=== PATIENT | male | born 1990 | race Caucasian/White ===

== ENCOUNTER 2017-12-16 10:41 | Day surgery (SDC) | payer OTHER ==
[2017-12-16] MEDS: NS 1,000 ML IV (11:00)
[2017-12-16] MEDS ORDERED: LIDOCAINE 2% INJ 100 MG/5 ML SDV (FOR ANES.) As Ordered (12:41)
[2017-12-16] MEDS ORDERED: PROPOFOL 200 MG/20 ML VIAL As Ordered ×2 (12:41)
== END 2017-12-16 13:31 | disposition home or self-care (01) ==
LOC: M OPP 10:41
DX: R11.2 Nausea with vomiting, unspecified (principal); K31.89 Other diseases of stomach and duodenum; I10 Essential (primary) hypertension; K58.9 Irritable bowel syndrome, unspecified; R19.7 Diarrhea, unspecified; K59.00 Constipation, unspecified; E66.9 Obesity, unspecified; K21.9 Gastro-esophageal reflux disease without esophagitis; R06.02 Shortness of breath; M19.90 Unspecified osteoarthritis, unspecified site; M54.9 Dorsalgia, unspecified; F41.9 Anxiety disorder, unspecified; G43.909 Migraine, unspecified, not intractable, without status migrainosus; G40.909 Epilepsy, unspecified, not intractable, without status epilepticus; J45.909 Unspecified asthma, uncomplicated; G47.30 Sleep apnea, unspecified; R06.83 Snoring; Z88.8 Allergy status to other drugs, medicaments and biological substances; Z88.5 Allergy status to narcotic agent; Z79.899 Other long term (current) drug therapy
CPT/HCPCS: 43239

== ENCOUNTER 2018-11-20 12:37 | Day surgery (SDC) | payer OTHER ==
[~2018-11-20] VITALS: Ht 180.3 cm; Wt 171.5 kg
[~2018-11-20 12:37] MED LIST: ACET-897 PO; ADV250INH INH; ALBU17IN INH; ALBU17IN2 INH; AMLO10TA2 PO; BREO1INH INH; CARA1TAB2 PO; CETI10TA PO; DESV100T PO; DOXY1CAP60 PO; DRIS50003 PO; GABA-1171 PO; HYDR50TA2 PO; IBUP-1022 PO; INCR1INH IN; LISI5TAB PO; LORA10TA2 PO; MAPA500C PO; NS 1,000 ML IV ONE; OMEP40CA2 PO; PRIL40CA PO; PRIS50TA PO; SING10TA32 PO; SING5CHW PO; THEO30TASA PO; TOPA100T PO; TOPI200T7 PO; TRAZ50TA2 PO; ULTR50TA PO; VITA100L PO; VITA500T3 PO; ZOFR4SOL SL
[2018-11-20] MEDS ORDERED: fentaNYL 100 MCG/2 ML INJECTION (J3010) As Ordered ONE (14:14)
[2018-11-20] MEDS ORDERED: LIDOCAINE 2% INJ 100 MG/5 ML SDV (FOR ANES.) As Ordered ONE (14:14)
[2018-11-20] MEDS ORDERED: PROPOFOL 200 MG/20 ML VIAL As Ordered ONE (14:14)
--- NOTE | 2018-11-20 14:22 | ROOR ---
Patient Name: Davie Trujillo Procedure Date: 11/20/2018 2:06 PM Date of : 1990 Age: 28 Room: [facility] Gender: Male Note Status: Finalized Procedure: Upper GI endoscopy Indications: Generalized abdominal pain, Heartburn Providers: Cesar REYNOLDS MD Referring MD: Matti Centeno MD Requesting Provider: Medicines: Monitored Anesthesia Care Complications: No immediate complications. Procedure: Pre-Anesthesia Assessment: - The heart rate, respiratory rate, oxygen saturations, blood pressure, adequacy of pulmonary ventilation, and response to care were monitored throughout the procedure. The Endoscope was introduced through the mouth, and advanced to the second part of duodenum. The upper GI endoscopy was accomplished without difficulty. The patient tolerated the procedure well. Findings: The esophagus was normal. The stomach was normal. The examined duodenum was normal. Impression: - Normal esophagus. - Normal stomach. - Normal examined duodenum. - No specimens collected. Recommendation: - Observe patient's clinical course. - Return to referring physician as previously scheduled. Cesar Reynolds MD Cesar REYNOLDS MD 11/20/2018 2:22:25 PM Electronically signed by Cesar REYNOLDS MD Number of Addenda: 0 Note Initiated On: 11/20/2018 2:06 PM Estimated Blood Loss: Estimated blood loss: none.
[2018-11-20 14:50] VITALS: BP 121/71
== END 2018-11-20 15:05 | disposition home or self-care (01) ==
LOC: M OPP 12:37
PROVIDERS: ATTEND Internal Medicine Gastroenterology
DX: R10.84 Generalized abdominal pain (principal); R12 Heartburn
CPT/HCPCS: 43235; J3010

== ENCOUNTER → 2020-05-05 | Outpatient (CLI) | payer OTHER ==
[~2020-05-05] MED LIST changes: -ALBU17IN2 INH; +CYAN500T8 PO; -INCR1INH IN; +INCR1INH INH; +KEPP1TAB PO; -NS 1,000 ML IV ONE; -OMEP40CA2 PO; +OMEP40CA97 PO; +PROV108A INH; -VITA500T3 PO
== END ==
LOC: M LABSMTC 11:23
PROVIDERS: ATTEND Anesthesiology
DX: Z01.812 Encounter for preprocedural laboratory examination (principal); Z20.828 Contact with and (suspected) exposure to other viral communicable diseases
CPT/HCPCS: C9803; U0003

== ENCOUNTER 2020-05-10 08:11 | Day surgery (SDC) | payer OTHER ==
[~2020-05-10] VITALS: Ht 180.3 cm; Wt 187.1 kg
[~2020-05-10 08:11] MED LIST changes: +NS 1,000 ML IV ONE
[2020-05-10] MEDS ORDERED: LIDOCAINE 2% 100MG/5ML SDV (FOR ANES.) As Ordered ONE (09:51)
[2020-05-10] MEDS ORDERED: propofoL 200 MG/20 ML VIAL As Ordered ONE ×2 (09:51→10:14)
[2020-05-10] MEDS ORDERED: CETACAINE SPRAY 5GM As Ordered ONE (09:51)
--- NOTE | 2020-05-10 10:01 | ROOR ---
Patient Name: Davie Trujillo Procedure Date: 05/10/2020 9:46 AM Date of : 1990 Age: 29 Room: [facility] Gender: Male Note Status: Finalized Procedure: Upper Endoscopy + Biopsies Indications: Heartburn, Exclusion of Juarez's esophagus Providers: Lance De La Rosa MD Referring MD: LETITIA HESTER MD Requesting Provider: Medicines: Monitored Anesthesia Care Complications: No immediate complications. Procedure: Pre-Anesthesia Assessment: - The heart rate, respiratory rate, oxygen saturations, blood pressure, adequacy of pulmonary ventilation, and response to care were monitored throughout the procedure. The Endoscope was introduced through the mouth, and advanced to the second part of duodenum. The upper GI endoscopy was accomplished without difficulty. The patient tolerated the procedure well. Findings: The Z-line was regular and was found 40 cm from the incisors. Multiple biopsies were obtained with cold forceps for evaluation to rule out Juarez's Esophagus randomly at the gastroesophageal junction. No other significant abnormalities were identified in a careful examination of the stomach. The exam of the duodenum was otherwise normal. Impression: - Z-line regular, 40 cm from the incisors. - Multiple biopsies were obtained at the gastroesophageal junction. - The examination was otherwise normal. Recommendation: - Patient has a contact number available for emergencies. The signs and symptoms of potential delayed complications were discussed with the patient. Return to normal activities tomorrow. Written discharge instructions were provided to the patient. - High fiber diet. - Discharge patient to home. - Follow an antireflux regimen. - Continue present medications. - Await pathology results. - Telephone GI clinic for pathology results in 1 week. - Return to referring physician. - The findings and recommendations were discussed with the patient. Lance De La Rosa MD Lance De La Rosa MD 05/10/2020 10:01:13 AM Electronically signed by Lance De La Rosa MD Number of Addenda: 0 Note Initiated On: 05/10/2020 9:46 AM Estimated Blood Loss: Estimated blood loss: none.
--- NOTE | 2020-05-10 10:16 | ROOR ---
Patient Name: Davie Trujillo Procedure Date: 05/10/2020 9:47 AM Date of : 1990 Age: 29 Room: [facility] Gender: Male Note Status: Finalized Procedure: Total Colonoscopy to Cecum Indications: Rectal bleeding, Constipation Providers: Lance De La Rosa MD Referring MD: LETITIA HESTER MD Requesting Provider: Medicines: Monitored Anesthesia Care Complications: No immediate complications. Procedure: Pre-Anesthesia Assessment: - The heart rate, respiratory rate, oxygen saturations, blood pressure, adequacy of pulmonary ventilation, and response to care were monitored throughout the procedure. The Colonoscope was introduced through the anus and advanced to the cecum, identified by appendiceal orifice and ileocecal valve. The colonoscopy was performed without difficulty. The patient tolerated the procedure well. The quality of the bowel preparation was good. Findings: The perianal and digital rectal examinations were normal. Non-bleeding internal hemorrhoids were found during retroflexion. The hemorrhoids were small and Grade I (internal hemorrhoids that do not prolapse). No other significant abnormalities were identified in a careful examination of the remainder of the colon. The exam was otherwise without abnormality on direct and retroflexion views. Impression: - Non-bleeding internal hemorrhoids. - The examination was otherwise normal on direct and retroflexion views. - No specimens collected. - The exam was otherwise normal to the cecum. Recommendation: - Patient has a contact number available for emergencies. The signs and symptoms of potential delayed complications were discussed with the patient. Return to normal activities tomorrow. Written discharge instructions were provided to the patient. - High fiber diet. - Discharge patient to home. - Continue present medications. - Repeat colonoscopy at age 48 for screening purposes. - Return to referring physician. - The findings and recommendations were discussed with the patient. Lance De La Rosa MD Lance De La Rosa MD 05/10/2020 10:16:07 AM Electronically signed by Lance De La Rosa MD Number of Addenda: 0 Note Initiated On: 05/10/2020 9:47 AM Estimated Blood Loss: Estimated blood loss: none.
[2020-05-10 11:00] VITALS: BP 143/81
== END 2020-05-10 14:30 | disposition home or self-care (01) ==
LOC: M OPP 08:11
PROVIDERS: ATTEND Internal Medicine Gastroenterology
DX: K62.5 Hemorrhage of anus and rectum (principal); K64.0 First degree hemorrhoids; K59.00 Constipation, unspecified; R12 Heartburn; Z79.899 Other long term (current) drug therapy; Z88.8 Allergy status to other drugs, medicaments and biological substances; Z88.5 Allergy status to narcotic agent

== ENCOUNTER 2020-07-31 15:29 | Emergency (ER) | payer OTHER ==
[~2020-07-31] VITALS: Ht 180.3 cm; Wt 190.0 kg
[~2020-07-31 15:29] MED LIST changes: +CYAN500T14 PO; -CYAN500T8 PO; -NS 1,000 ML IV ONE
[2020-07-31] MEDS ORDERED: ACETAMINOPHEN 500 MG TAB PO ONE (17:15)
[2020-07-31] MEDS ORDERED: NS 1,000 ML IV ONE (17:15)
[2020-07-31] MEDS ORDERED: ONDANSETRON 4MG/2ML VIAL IV ONE (17:15)
--- NOTE | 2020-07-31 17:41 | REP ---
INDICATION: cough, SOB. COMPARISON: 11/23/2007 FINDINGS: The technique utilized in obtaining the radiograph has magnified the cardiac silhouette and accentuated the interstitial markings. The superior mediastinal structures are midline. The cardiac silhouette is unremarkable in size, shape, and position. The diaphragmatic surfaces of the lungs are regular, and the costophrenic angles are clear. The pulmonary west are clear. The imaged osseous structures are intact. IMPRESSION: There is no acute cardiopulmonary disease. <Electronically signed by Benjamin Garcia > 07/31/20 [id number]
[2020-07-31 17:52] LABS: BASO % 0.3 % (0.0-1.0); EOS # 0.2 10^3/uL (0.0-0.5); EOS % 2.1 % (0.0-3.0); HEMATOCRIT 49.6 % (42.0-52.0); HEMOGLOBIN 15.5 g/dl (13.5-17.5); LYMPH # 2.5 10^3/uL (1.5-5.0); LYMPH % 26.4 % (24.0-44.0); MEAN CORPUSCULAR HEMOGLOBIN 28.9 pg (27.0-33.0); MEAN CORPUSCULAR HGB CONC 31.3 g/dl (32.0-36.5); MEAN CORPUSCULAR VOLUME 92.4 fl (80.0-96.0); MONO # 0.7 10^3/uL (0.0-0.8); MONO % 7.4 % (0.0-5.0); NEUTROPHILS # 6.1 10^3/uL (1.5-8.5); NEUTROPHILS % 63.6 % (36.0-66.0); PLATELET COUNT, AUTOMATED 239 10^3/uL (150-450); RED BLOOD COUNT 5.37 10^6/uL (4.30-6.10); WHITE BLOOD COUNT 9.6 10^3/uL (4.0-10.0)
[2020-07-31 18:29] LABS: ALBUMIN 3.7 GM/DL (3.2-5.2); ALT/SGPT 51 U/L (12-78); BILIRUBIN,DIRECT < 0.1 MG/DL (0.0-0.2); BILIRUBIN,TOTAL 0.5 MG/DL (0.2-1.0); BLOOD UREA NITROGEN 7 MG/DL (7-18); CARBON DIOXIDE LEVEL 26 MEQ/L (21-32); CHLORIDE LEVEL 112 MEQ/L (98-107); CREATININE FOR GFR 0.95 MG/DL (0.70-1.30); GLOMERULAR FILTRATION RATE > 60.0 (>60); GLUCOSE, FASTING 97 MG/DL (70-100); LIPASE 83 U/L (73-393); POTASSIUM SERUM 3.8 MEQ/L (3.5-5.1); SODIUM LEVEL 142 MEQ/L (136-145); TOTAL PROTEIN 7.9 GM/DL (6.4-8.2)
[2020-07-31 18:30] LABS: RSV AMPLIFICATION NEGATIVE (NEGATIVE)
[2020-07-31] MEDS ORDERED: ONDA4TAB6 PO (21:11)
[2020-07-31] MEDS ORDERED: TESS100C PO (21:11)
[2020-07-31 21:35] VITALS: BP 141/81
== END 2020-07-31 21:36 | disposition home or self-care (01) ==
LOC: M ED 15:29
DX: R11.2 Nausea with vomiting, unspecified (principal); R06.02 Shortness of breath; R05 Cough; R10.9 Unspecified abdominal pain; G40.909 Epilepsy, unspecified, not intractable, without status epilepticus; Z88.6 Allergy status to analgesic agent; Z88.8 Allergy status to other drugs, medicaments and biological substances; Z79.899 Other long term (current) drug therapy
CPT/HCPCS: 71045; 80048; 80076; 81001; 83690; 85025; 87631; 87880; 96360; 99284; J2405

== ENCOUNTER 2020-08-09 14:16 | Emergency (ER) | payer OTHER ==
[~2020-08-09] VITALS: Ht 180.3 cm; Wt 185.9 kg
[~2020-08-09 14:16] MED LIST changes: +ONDA4TAB6 PO; +TESS100C PO
--- OUTSIDE RECORDS SUMMARY | 2020-08-09 14:26 | CCD ---
Author Author [facility] Organization [facility] Address Unknown Phone Unavailable Care Team Providers Care Sider Name Role Phone Gabriel De La Rosa MD Unavailable Unavailable Gabriel De La Rosa MD Unavailable Unavailable Gabriel De La Rosa MD Unavailable Unavailable Gabriel De La Rosa MD Unavailable Unavailable Gabriel De La Rosa MD Unavailable Unavailable Gabriel De La Rosa MD Unavailable Unavailable Gabriel De La Rosa MD Unavailable Unavailable Gabriel De La Rosa MD Unavailable Unavailable Gabriel De La Rosa MD Unavailable Unavailable Gabriel De La Rosa MD Unavailable Unavailable Gabriel De La Rosa MD Unavailable Unavailable Gabriel De La Rosa MD Unavailable Unavailable Gabriel De La Rosa MD Unavailable Unavailable Gabriel De La Rosa MD Unavailable Unavailable Gabriel De La Rosa MD Unavailable Unavailable Gabriel De La Rosa MD Unavailable Unavailable Gabriel De La Rosa MD Unavailable Unavailable Gabriel De La Rosa MD Unavailable Unavailable Gabriel De La Rosa MD Unavailable Unavailable EstrellaGabriel ponce MD Unavailable Unavailable EstrellaGabriel ponce MD Unavailable Unavailable EstrellaGabriel ponce MD Unavailable Unavailable EstrellaGabriel MD Unavailable Unavailable EstrellaGabriel ponce MD Unavailable Unavailable EstrellaGabriel ponce MD Unavailable Unavailable Gabriel De La Rosa MD Unavailable Unavailable EstrellaGabriel ponce MD Unavailable Unavailable EstrellaGabriel MD Unavailable Unavailable Gabriel De La Rosa MD Unavailable Unavailable EstrellaGabriel ponce MD Unavailable Unavailable Gabriel De La Rosa MD Unavailable Unavailable Gabriel De La Rosa MD Unavailable Unavailable Gabriel De La Rosa MD Unavailable Unavailable Gabriel De La Rosa MD Unavailable Unavailable Gabriel De La Rosa MD Unavailable Unavailable Gabriel De La Rosa MD Unavailable Unavailable Gabriel De La Rosa MD Unavailable Unavailable Gabriel De La Rosa MD Unavailable Unavailable Gabriel De La Rosa MD Unavailable Unavailable Gabriel De La Rosa MD Unavailable Unavailable Gabriel De La Rosa MD Unavailable Unavailable Gabriel De La Rosa MD Unavailable Unavailable Gabriel De La Rosa MD Unavailable Unavailable Gabriel De La Rosa MD Unavailable Unavailable Gabriel De La Rosa MD Unavailable Unavailable Gabriel De La Rosa MD Unavailable Unavailable Gabriel De La Rosa MD Unavailable Unavailable Stephen GEORGES MD Unavailable Unavailable Stephen GEORGES MD Unavailable Unavailable Stephen GEORGES MD Unavailable Unavailable Stephen GEORGES MD Unavailable Unavailable Stephen GEORGES MD Unavailable Unavailable Stephen GEORGES MD Unavailable Unavailable Stephen GEORGES MD Unavailable Unavailable Stephen GEORGES MD Unavailable Unavailable Stephen GEORGES MD Unavailable Unavailable Stephen GEORGES MD Unavailable Unavailable Stephen GEORGES MD Unavailable Unavailable Stephen GEORGES MD Unavailable Unavailable Stephen GEORGES MD Unavailable Unavailable ALESSIO SOTELO CDN, RD Unavailable ALESSIO SOTELO CDN, RD Unavailable ALESSIO SOTELO CDN, RD Unavailable Miroslava SIERRA MD Unavailable Unavailable Miroslava SIERRA MD Unavailable Unavailable Miroslava SIERRA MD Unavailable Unavailable VANVALKENBURG, Miroslava ESCUDERO MD Unavailable Unavailable VANVALKENBURG, M KOTA WAGNER Unavailable Unavailable VANVALKENBURG, M KOTA WAGNER Unavailable Unavailable VANVALKENBURG, M KOTA WAGNER Unavailable Unavailable VANVALKENBURG, M KOTA WAGNER Unavailable Unavailable VANVALKENBURG, M KOTA WAGNER Unavailable Unavailable VANVALKENBURG, Miroslava ESCUDERO MD Unavailable Unavailable VANVALKENBURG, Miroslava ESCUDERO MD Unavailable Unavailable VANVALKENBURG, M KOTA WAGNER Unavailable Unavailable VANVALKENBURG, M KOTA WAGNER Unavailable Unavailable VANVALKENBURG, M KOTA WAGNER Unavailable Unavailable VANVALKENBURG, M KOTA WAGNER Unavailable Unavailable VANVALKENBURG, M KOTA WAGNER Unavailable Unavailable VANVALKENBURG, M KOTA WAGNER Unavailable Unavailable VANVALKENBURG, M KOTA WAGNER Unavailable Unavailable VANVALKENBURG, M KOTA WAGNER Unavailable Unavailable VANVALKENBURG, M KOTA WAGNER Unavailable Unavailable VANVALKENBURG, M KOTA WAGNER Unavailable Unavailable VANVALKENBURG, M KOTA WAGNER Unavailable Unavailable VANVALKENBURG, M KOTA WAGNER Unavailable Unavailable VANVALKENBURG, Miroslava ESCUDERO MD Unavailable Unavailable VANVALKENBURG, M KOTA WAGNER Unavailable Unavailable VANVALKENBURG, M KOTA WAGNER Unavailable Unavailable VANVALKENBURG, M KOTA WAGNER Unavailable Unavailable VANVALKENBURG, Miroslava ESCUDERO MD Unavailable Unavailable VANVALKENBURG, Miroslava ESCUDERO MD Unavailable Unavailable VANVALKENBURG, Miroslava ESCUDERO MD Unavailable Unavailable VANVALKENBURG, M KOTA WAGNER Unavailable Unavailable VANVALKENBURG, Miroslava ESCUDERO MD Unavailable Unavailable VANVALKENBURG, Miroslava ESCUDERO MD Unavailable Unavailable VANVALKENBURG, Miroslava ESCUDERO MD Unavailable Unavailable VANVALKENBURG, Miroslava ESCUDERO MD Unavailable Unavailable VANVALKENBURG, Miroslava ESCUDERO MD Unavailable Unavailable VANVALKENBURG, Miroslava ESCUDERO MD Unavailable Unavailable VANVALKENBURG, Miroslava ESCUDERO MD Unavailable Unavailable VANVALKENBURG, Miroslava ESCUDERO MD Unavailable Unavailable VANVALKENBURG, Miroslava ESCUDERO MD Unavailable Unavailable VANVALKENBURG, Miroslava ESCUDERO MD Unavailable Unavailable VANVALKENBURG, Miroslava ESCUDERO MD Unavailable Unavailable VANVALKENBURG, Miroslava ESCUDERO MD Unavailable Unavailable VANVALKENBURG, Miroslava ESCUDERO MD Unavailable Unavailable VANVALKENBURG, Miroslava ESCUDERO MD Unavailable Unavailable VANVALKENBURG, Miroslava ESCUDERO MD Unavailable Unavailable VANVALKENBURG, Miroslava ESCUDERO MD Unavailable Unavailable VANVALKENBURG, Miroslava ESCUDERO MD Unavailable Unavailable VANVALKENBURG, Miroslava ESCUDERO MD Unavailable Unavailable VANVALKENBURG, Miroslava ESCUDERO MD Unavailable Unavailable VANVALKENBURG, Miroslava ESCUDERO MD Unavailable Unavailable VANVALKENBURG, Miroslava ESCUDERO MD Unavailable Unavailable VANVALKENBURG, Miroslava ESCUDERO MD Unavailable Unavailable VANVALKENBURG, M KOTA MD Unavailable Unavailable VANVALKENMiroslava DOTSON MD Unavailable Unavailable VANVALMiroslava DONALDSON MD Unavailable Unavailable Miroslava SIERRA MD Unavailable Unavailable KRISTINAVALKENMAURI, Miroslava ESCUDERO MD Unavailable Unavailable KRISTINAVALKENMAURI, Miroslava ESCUDERO MD Unavailable Unavailable KRISTINAVALKENMAURI, Miroslava ESCUDERO MD Unavailable Unavailable VANVALKENMiroslava DOTSON MD Unavailable Unavailable VANVALKENMAURI, Miroslava ESCUDERO MD Unavailable Unavailable VANVALKENMAURI, Miroslava ESCUDERO MD Unavailable Unavailable VANVALKENMAURI, Miroslava ESCUDERO MD Unavailable Unavailable VANVALKENMAURI, Miroslava ESCUDERO MD Unavailable Unavailable VANVALKENMAURI, Miroslava ESCUDERO MD Unavailable Unavailable VANVALKENMiroslava DOTSON MD Unavailable Unavailable DEMARTINI, M ADITYA PA Unavailable Unavailable DEMARTINI, M ADITYA PA Unavailable Unavailable DEMARTINI, M ADITYA PA Unavailable Unavailable DEMARTINI, M ADITYA PA Unavailable Unavailable DEMARTINI, M ADITYA PA Unavailable Unavailable DEMARTINI, M ADITYA PA Unavailable Unavailable DEMARTINI, M ADITYA PA Unavailable Unavailable DEMARTINI, M ADITYA PA Unavailable Unavailable DEMARTINI, M ADITYA PA Unavailable Unavailable DEMARTINI, M ADITYA PA Unavailable Unavailable DEMARTINI, M ADITYA PA Unavailable Unavailable DEMARTINI, M ADITYA PA Unavailable Unavailable DEMARTINI, M ADITYA PA Unavailable Unavailable DEMARTINI, M ADITYA PA Unavailable Unavailable DEMARTINI, M ADITYA PA Unavailable Unavailable DEMARTINI, M ADITYA PA Unavailable Unavailable DEMARTINI, M ADITYA PA Unavailable Unavailable DEMARTINI, M ADITYA PA Unavailable Unavailable DEMARTINI, M ADITYA PA Unavailable Unavailable DEMARTINI, M ADITYA PA Unavailable Unavailable DEMARTINI, M ADITYA PA Unavailable Unavailable DEMARTINI, M ADITYA PA Unavailable Unavailable DEMARTINI, M ADITYA PA Unavailable Unavailable DEMARTINI, M ADITYA PA Unavailable Unavailable DEMARTINI, M ADITYA PA Unavailable Unavailable DEMARTINI, M ADITYA PA Unavailable Unavailable DEMARTINI, M ADITYA PA Unavailable Unavailable DEMARTINI, M ADITYA PA Unavailable Unavailable DEMARTINI, M ADITYA PA Unavailable Unavailable DEMARTINI, M ADITYA PA Unavailable Unavailable DEMARTINI, M ADITYA PA Unavailable Unavailable DEMARTINI, M ADITYA PA Unavailable Unavailable DEMARTINI, M ADITYA PA Unavailable Unavailable DEMARTINI, M ADITYA PA Unavailable Unavailable DEMARTINI, M ADITYA PA Unavailable Unavailable DEMARTINI, M ADITYA PA Unavailable Unavailable DEMARTINI, M ADITYA PA Unavailable Unavailable DEMSIERRA, Miroslava BURGESS PA Unavailable Unavailable DEMAKASHINI, Miroslava BURGESS PA Unavailable Unavailable Miroslava LE PA Unavailable Unavailable DEMAKASHINI, Miroslava BURGESS PA Unavailable Unavailable Miroslava LE PA Unavailable Unavailable DEMAKASHINIMiroslava PA Unavailable Unavailable OBEN, T SALVADOR MD Unavailable Unavailable OBEN, T SALVADOR MD Unavailable Unavailable OBEN, T SALVADOR MD Unavailable Unavailable OBEN, T SALVADOR MD Unavailable Unavailable OBEN, T SALVADOR MD Unavailable Unavailable OBEN, T SALVADOR MD Unavailable Unavailable OBEN, T SALVADOR MD Unavailable Unavailable OBEN, T SALVADOR MD Unavailable Unavailable OBEN, T SALVADOR MD Unavailable Unavailable OBEN, T SALVADOR MD Unavailable Unavailable OBEN, T SALVADOR MD Unavailable Unavailable OBEN, T SALVADOR MD Unavailable Unavailable OBEN, T SALVADOR MD Unavailable Unavailable OBEN, T SALVADOR MD Unavailable Unavailable OBEN, T SALVADOR MD Unavailable Unavailable OBEN, T SALVADOR MD Unavailable Unavailable OBEN, T SALVADOR MD Unavailable Unavailable OBEN, T SALVADOR MD Unavailable Unavailable OBEN, T SALVADOR MD Unavailable Unavailable OBEN, T SALVADOR MD Unavailable Unavailable OBEN, T SALVADOR MD Unavailable Unavailable OBEN, T SALVADOR MD Unavailable Unavailable OBEN, T SALVADOR MD Unavailable Unavailable OBEN, T SALVADOR MD Unavailable Unavailable OBEN, T SALVADOR MD Unavailable Unavailable OBEN, T SALVADOR MD Unavailable Unavailable OBEN, T SALVADOR MD Unavailable Unavailable OBEN, T SALVADOR MD Unavailable Unavailable OBEN, T SALVADOR MD Unavailable Unavailable OBEN, T SALVADOR MD Unavailable Unavailable OBEN, T SALVADOR MD Unavailable Unavailable OBEN, T SALVADOR MD Unavailable Unavailable OBEN, T SALVADOR MD Unavailable Unavailable OBEN, T SALVADOR MD Unavailable Unavailable OBEN, T SALVADOR MD Unavailable Unavailable OBEN, T SALVADOR MD Unavailable Unavailable OBEN, T SALVADOR MD Unavailable Unavailable OBEN, T SALVADOR MD Unavailable Unavailable OBEN, T SALVADOR MD Unavailable Unavailable OBEN, T SALVADOR MD Unavailable Unavailable OBEN, T SALVADOR MD Unavailable Unavailable OBEN, T SALVADOR MD Unavailable Unavailable OBEN, T SALVADOR MD Unavailable Unavailable OBEN, T SALVADOR MD Unavailable Unavailable OBEN, T SALVADOR MD Unavailable Unavailable OBEN, T SALVADOR MD Unavailable Unavailable OBEN, T SALVADOR MD Unavailable Unavailable OBEN, T SALVADOR MD Unavailable Unavailable OBEN, T SALVADOR MD Unavailable Unavailable Lionel KAAMRA MD Unavailable Unavailable Lionel KAMARA MD Unavailable Unavailable Lionel KAMARA MD Unavailable Unavailable Lionel KAMARA MD Unavailable Unavailable Lionel KAMARA MD Unavailable Unavailable Lionel KAMARA MD Unavailable Unavailable Lionel KAMARA MD Unavailable Unavailable HITESH MELGAR MD Unavailable Unavailable HITESH MELGAR MD Unavailable Unavailable HITESH MELGAR MD Unavailable Unavailable HITESH MELGAR MD Unavailable Unavailable HITESH MELGAR MD Unavailable Unavailable HITESH MELGAR MD Unavailable Unavailable HITESH MELGAR MD Unavailable Unavailable HITESH MELGAR MD Unavailable Unavailable HITESH MELGAR MD Unavailable Unavailable HITESH MELGAR MD Unavailable Unavailable HITESH MELGAR MD Unavailable Unavailable HITESH MELGAR MD Unavailable Unavailable Angelica Anderson MD Unavailable Unavailable Angelica Anderson MD Unavailable Unavailable Angelica Anderson MD Unavailable Unavailable Angelica Anderson MD Unavailable Unavailable Angelica Anderson MD Unavailable Unavailable Angelica Anderson MD Unavailable Unavailable Angelica Anderson MD Unavailable Unavailable Angelica Anderson MD Unavailable Unavailable Angelica Anderson MD Unavailable Unavailable Angelica Anderson MD Unavailable Unavailable Angelica Anderson MD Unavailable Unavailable Angelica Anderson MD Unavailable Unavailable Angelica Anderson MD Unavailable Unavailable Angelica Anderson MD Unavailable Unavailable Angelica Anderson MD Unavailable Unavailable Angelica Anderson MD Unavailable Unavailable Angelica Anderson MD Unavailable Unavailable Angelica Anderson MD Unavailable Unavailable Angelica Anderson MD Unavailable Unavailable Angelica Anderson MD Unavailable Unavailable Angelica Anderson MD Unavailable Unavailable Angelica Anderson MD Unavailable Unavailable Angelica Anderson MD Unavailable Unavailable Angelica Anderson MD Unavailable Unavailable Angelica Anderson MD Unavailable Unavailable Angelica Anderson MD Unavailable Unavailable Angelica Anderson MD Unavailable Unavailable Angelica Anderson MD Unavailable Unavailable Angelica Anderson MD Unavailable Unavailable Angelica Anderson MD Unavailable Unavailable Angelica Anderson MD Unavailable Unavailable Angelica Anderson MD Unavailable Unavailable Angelica Anderson MD Unavailable Unavailable Angelica Anderson MD Unavailable Unavailable Angelica Anderson MD Unavailable Unavailable Angelica Anderson MD Unavailable Unavailable Angelica Anderson MD Unavailable Unavailable Angelica Anderson MD Unavailable Unavailable Angelica Anderson MD Unavailable Unavailable Angelica Anderson MD Unavailable Unavailable Angelica Anderson MD Unavailable Unavailable Angelica Anderson MD Unavailable Unavailable Angelica Anderson MD Unavailable Unavailable Angelica Anderson MD Unavailable Unavailable AndersonAngelica MD Unavailable Unavailable Anderson, Angelica Escudero MD Unavailable Unavailable Anderson, Angelica Escudero MD Unavailable Unavailable Anderson, Angelica Escudero MD Unavailable Unavailable Anderson, Angelica Escudero MD Unavailable Unavailable Anderson, Angelica Escudero MD Unavailable Unavailable Anderson, Angelica Escudero MD Unavailable Unavailable Angelica Anderson MD Unavailable Unavailable Angelica Anderson MD Unavailable Unavailable Justin, Angelica Escudero MD Unavailable Unavailable Anderson, Angelica Escudero MD Unavailable Unavailable Anderson, Angelica Escudero MD Unavailable Unavailable Anderson, Angelica Escudero MD Unavailable Unavailable Anderson, Angelica Escudero MD Unavailable Unavailable Anderson, Angelica Escudero MD Unavailable Unavailable Anderson, Angelica Escudero MD Unavailable Unavailable Angelica Anderson MD Unavailable Unavailable Angelica Anderson MD Unavailable Unavailable Anderson, Angelica Escudero MD Unavailable Unavailable Anderson, Angelica Escudero MD Unavailable Unavailable Anderson, Angelica Escudero MD Unavailable Unavailable Anderson, Angelica Escudero MD Unavailable Unavailable Anderson, Angelica Escudero MD Unavailable Unavailable Anderson, Angelica Escudero MD Unavailable Unavailable Anderson, Angelica Escudero MD Unavailable Unavailable Angelica Anderson MD Unavailable Unavailable Angelica Anderson MD Unavailable Unavailable Anderson, Angelica Escudero MD Unavailable Unavailable Angelica Anderson MD Unavailable Unavailable Anderson, Angelica Escudero MD Unavailable Unavailable Anderson, Angelica Escudero MD Unavailable Unavailable Anderson, Angelica Escudero MD Unavailable Unavailable Anderson, Angelica Escudero MD Unavailable Unavailable Angelica Anderson MD Unavailable Unavailable Angelica Anderson MD Unavailable Unavailable Angelica Anderson MD Unavailable Unavailable Angelica Anderson MD Unavailable Unavailable Angelica Anderson MD Unavailable Unavailable Angelica Anderson MD Unavailable Unavailable Angelica Anderson MD Unavailable Unavailable Angelica Anderson MD Unavailable Unavailable Angelica Anderson MD Unavailable Unavailable Angelica Anderson MD Unavailable Unavailable Angelica Anderson MD Unavailable Unavailable Angelica Anderson MD Unavailable Unavailable Jonathon SHOOK MD Unavailable Unavailable Jonathon SHOOK MD Unavailable Unavailable Jonathon SHOOK MD Unavailable Unavailable Jonathon SOHOK MD Unavailable Unavailable Jonathon SHOOK MD Unavailable Unavailable Jonathon SHOOK MD Unavailable Unavailable Jonathon SHOOK MD Unavailable Unavailable Jonathon SHOOK MD Unavailable Unavailable Jonathon SHOOK MD Unavailable Unavailable Jonathon SHOOK MD Unavailable Unavailable Jonathon SHOOK MD Unavailable Unavailable Jonathon SHOOK MD Unavailable Unavailable Jonathon SHOOK MD Unavailable Unavailable Jonathon SHOOK MD Unavailable Unavailable Jonathon SHOOK MD Unavailable Unavailable Jonathon SHOOK MD Unavailable Unavailable BOONE, A SANTOS MD Unavailable Unavailable BOONE, Jonathon SANTOS MD Unavailable Unavailable BOONE, A SANTOS MD Unavailable Unavailable BOONE, A SANTOS MD Unavailable Unavailable BOONE, A SANTOS MD Unavailable Unavailable BOONE, A SANTOS MD Unavailable Unavailable BOONE, A SANTOS MD Unavailable Unavailable BOONE, A SANTOS MD Unavailable Unavailable BOONE, A SANTOS MD Unavailable Unavailable BOONE, A SANTOS MD Unavailable Unavailable BOONE, A SANTOS MD Unavailable Unavailable BOONE, A SANTOS MD Unavailable Unavailable BOONE, A SANTOS MD Unavailable Unavailable BOONE, A SANTOS MD Unavailable Unavailable BOONE, A SANTOS MD Unavailable Unavailable BOONE, A SANTOS MD Unavailable Unavailable BOONE, A SANTOS MD Unavailable Unavailable BOONE, A SANTOS MD Unavailable Unavailable BOONE, A SANTOS MD Unavailable Unavailable BOONE, A SANTOS MD Unavailable Unavailable BOONE, A SANTOS MD Unavailable Unavailable BOONE, A SANTOS MD Unavailable Unavailable BOONE, A SANTOS MD Unavailable Unavailable BOONE, A SANTOS MD Unavailable Unavailable BOONE, A SANTOS MD Unavailable Unavailable BOONE, A SANTOS MD Unavailable Unavailable BOONE, A SANTOS MD Unavailable Unavailable BOONE, A SANTOS MD Unavailable Unavailable BOONE, A SANTOS MD Unavailable Unavailable BOONE, A SANTOS MD Unavailable Unavailable BOONE, A SANTOS MD Unavailable Unavailable BOONE, A SANTOS MD Unavailable Unavailable BOONE, A SANTOS MD Unavailable Unavailable BOONE, A SANTOS MD Unavailable Unavailable BOONE, A SANTOS MD Unavailable Unavailable BOONE, A SANTOS MD Unavailable Unavailable BOONE, A SANTOS MD Unavailable Unavailable BOONE, A SANTOS MD Unavailable Unavailable BOONE, A SANTOS MD Unavailable Unavailable BOONE, A SANTOS MD Unavailable Unavailable BOONE, A SANTOS MD Unavailable Unavailable BOONE, A SANTOS MD Unavailable Unavailable Kunnumpurakei, F Shannan MD Unavailable Unavailable Kunnumpurath, F Shannan MD Unavailable Unavailable Kunnumpurath, F Shannan MD Unavailable Unavailable Kunnumpurath, F Shannan MD Unavailable Unavailable Kunnumpurath, F Shannan MD Unavailable Unavailable Kunnumpurath, F Shannan MD Unavailable Unavailable Kunnumpurath, F Shannan MD Unavailable Unavailable Kunnumpurath, F Shannan MD Unavailable Unavailable Kunnumpurath, F Shannan MD Unavailable Unavailable Kunnumpurath, F Shannan MD Unavailable Unavailable Kunnumpurath, F Shannan MD Unavailable Unavailable Kunnumpurath, F Shannan MD Unavailable Unavailable Kunnumpurath, F Shannan MD Unavailable Unavailable Kunnumpurath, F Shannan MD Unavailable Unavailable Kunnumpurath, F Shannan MD Unavailable Unavailable Kunnumpurath, F Shannan MD Unavailable Unavailable Kunnumpurath, F Shannan MD Unavailable Unavailable Kunnumpurath, F Shannan MD Unavailable Unavailable Kunnumpurath, F Shannan MD Unavailable Unavailable Kunnumpurath, F Shannan MD Unavailable Unavailable Kunnumpurath, F Shannan MD Unavailable Unavailable Kunnumpurath, F Shannan MD Unavailable Unavailable Kunnumpurath, F Shannan MD Unavailable Unavailable Kunnumpurath, F Shannan MD Unavailable Unavailable Kunnumpurath, F Shannan MD Unavailable Unavailable Kunnumpurath, F Shannan MD Unavailable Unavailable Kunnumpurath, F Shannan MD Unavailable Unavailable Kunnumpurath, F Shannan MD Unavailable Unavailable Kunnumpurath, F Shannan MD Unavailable Unavailable Kunnumpurath, F Shannan MD Unavailable Unavailable Kunnumpurath, F Shannan MD Unavailable Unavailable Kunnumpurath, F Shannan MD Unavailable Unavailable Kunnumpurath, F Shannan MD Unavailable Unavailable Kunnumpurath, F Shannan MD Unavailable Unavailable Kunnumpurath, F Shannan MD Unavailable Unavailable Kunnumpurath, F Shannan MD Unavailable Unavailable Kunnumpurath, F Shannan MD Unavailable Unavailable Kunnumpurath, F Shannan MD Unavailable Unavailable Lance Arenas DO Unavailable Unavailable IDA, A KELLEN DPM Unavailable Unavailable IDA, A KELLEN DPM Unavailable Unavailable IDA, A KELLEN DPM Unavailable Unavailable IDA, A KELLEN DPM Unavailable Unavailable IDA, A KELLEN DPM Unavailable Unavailable IDA, A KELLEN DPM Unavailable Unavailable IDA, A KELLEN DPM Unavailable Unavailable IDA, A KELLEN DPM Unavailable Unavailable IDA, A KELLEN DPM Unavailable Unavailable IDA, A KELLEN DPM Unavailable Unavailable IDA, A KELLEN DPM Unavailable Unavailable IDA, A KELLEN DPM Unavailable Unavailable IDA, A KELLEN DPM Unavailable Unavailable IDA, A KELLEN DPM Unavailable Unavailable IDA, A KELLEN DPM Unavailable Unavailable Gabriel DAVIS [id number] Unavailable Unavailable OBEN, T SALVADOR MD Unavailable Unavailable OBEN, T SALVADOR MD Unavailable Unavailable OBEN, T SALVADOR MD Unavailable Unavailable OBEN, T SALVADOR MD Unavailable Unavailable OBEN, T SALVADOR MD Unavailable Unavailable OBEN, T SALVADOR MD Unavailable Unavailable OBEN, T SALVADOR MD Unavailable Unavailable OBEN, T SALVADOR MD Unavailable Unavailable OBEN, T SALVADOR MD Unavailable Unavailable OBEN, T SALVADOR MD Unavailable Unavailable OBEN, T SALVADOR MD Unavailable Unavailable OBEN, T SALVADOR MD Unavailable Unavailable OBEN, T SALVADOR MD Unavailable Unavailable OBEN, T SALVADOR MD Unavailable Unavailable OBEN, T SALVADOR MD Unavailable Unavailable OBEN, T SALVADOR MD Unavailable Unavailable OBEN, T SALVADOR MD Unavailable Unavailable OBEN, T SALVADOR MD Unavailable Unavailable OBEN, T SALVADOR MD Unavailable Unavailable OBEN, T SALVADOR MD Unavailable Unavailable OBEN, T SALVADOR MD Unavailable Unavailable OBEN, T SALVADOR MD Unavailable Unavailable OBEN, T SALVADOR MD Unavailable Unavailable OBEN, T SALVADOR MD Unavailable Unavailable OBEN, T SALVADOR MD Unavailable Unavailable OBEN, T SALVADOR MD Unavailable Unavailable OBEN, T SALVADOR MD Unavailable Unavailable OBEN, T SALVADOR MD Unavailable Unavailable OBEN, T SALVADOR MD Unavailable Unavailable OBEN, T SALVADOR MD Unavailable Unavailable OBEN, T SALVADOR MD Unavailable Unavailable OBEN, T SALVADOR MD Unavailable Unavailable OBEN, T SALVADOR MD Unavailable Unavailable OBEN, T SALVADOR MD Unavailable Unavailable OBEN, T SALVADOR MD Unavailable Unavailable OBEN, T SALVADOR MD Unavailable Unavailable OBEN, T SALVADOR MD Unavailable Unavailable OBEN, T SALVADOR MD Unavailable Unavailable OBEN, T SALVADOR MD Unavailable Unavailable OBEN, T SALVADOR MD Unavailable Unavailable OBEN, T SALVADOR MD Unavailable Unavailable OBEN, T SALVADOR MD Unavailable Unavailable OBEN, T SALVADOR MD Unavailable Unavailable OBEN, T SALVADOR MD Unavailable Unavailable OBEN, T SALVADOR MD Unavailable Unavailable OBEN, T SALVADOR MD Unavailable Unavailable OBEN, T SALVADOR MD Unavailable Unavailable OBEN, T SALVADOR MD Unavailable Unavailable OBEN, T SALVADOR MD Unavailable Unavailable OBEN, T SALVADOR MD Unavailable Unavailable OBEN, T SALVADOR MD Unavailable Unavailable OBEN, T SALVADOR MD Unavailable Unavailable OBEN, T SALVADOR MD Unavailable Unavailable OBEN, T SALVADOR MD Unavailable Unavailable OBEN, T SALVADOR MD Unavailable Unavailable OBEN, T SALVADOR MD Unavailable Unavailable TURRIN, CLEO Unavailable Unavailable TURRIN, CLEO Unavailable Unavailable TURRIN, CLEO Unavailable Unavailable TURRIN, CLEO Unavailable Unavailable HESTER, LETITIA MD Unavailable Unavailable HESTER, LETITIA MD Unavailable Unavailable HESTER, LETITIA MD Unavailable Unavailable HESTER, LETITIA MD Unavailable Unavailable HESTER, LETITIA MD Unavailable Unavailable HESTER, LETITIA MD Unavailable Unavailable HESTER, LETITIA MD Unavailable Unavailable HESTER, LETITIA MD Unavailable Unavailable HESTER, LETITIA MD Unavailable Unavailable HESTER, LETITIA MD Unavailable Unavailable HESTER, LETITIA MD Unavailable Unavailable HESTER, LETITIA MD Unavailable Unavailable HESTER, LETITIA MD Unavailable Unavailable HESTER, LETITIA MD Unavailable Unavailable HESTER, LETITIA MD Unavailable Unavailable HESTER, LETITIA MD Unavailable Unavailable HESTER, LETITIA MD Unavailable Unavailable HESTER, LETITIA MD Unavailable Unavailable HESTER, LETITIA MD Unavailable Unavailable HESTER, LETITIA MD Unavailable Unavailable HESTER, LETITIA MD Unavailable Unavailable HESTER, LETITIA MD Unavailable Unavailable HESTER, LETITIA MD Unavailable Unavailable HESTER, LETITIA MD Unavailable Unavailable HESTER, LETITIA MD Unavailable Unavailable HESTER, LETITIA MD Unavailable Unavailable HESTER, LETITIA MD Unavailable Unavailable HESTER, LETITIA MD Unavailable Unavailable HESTER, LETITIA MD Unavailable Unavailable HESTER, LETITIA MD Unavailable Unavailable HESTER, LETITIA MD Unavailable Unavailable HESTER, LETITIA MD Unavailable Unavailable HESTER, LETITIA MD Unavailable Unavailable HESTER, LETITIA MD Unavailable Unavailable HESTER, LETITIA MD Unavailable Unavailable HESTER, LETITIA MD Unavailable Unavailable HESTER, LETITIA MD Unavailable Unavailable HESTER, LETITIA MD Unavailable Unavailable HESTER, LETITIA MD Unavailable Unavailable HESTER, LETITIA MD Unavailable Unavailable HESTER, LETITIA MD Unavailable Unavailable HESTER, LETITIA MD Unavailable Unavailable HESTER, LETITIA MD Unavailable Unavailable HESTER, LETITIA MD Unavailable Unavailable HESTER, LETITIA MD Unavailable Unavailable HESTER, LETITIA MD Unavailable Unavailable HESTER, LETITIA MD Unavailable Unavailable HESTER, LETITIA MD Unavailable Unavailable HESTER, LETITIA MD Unavailable Unavailable HESTER, LETITIA MD Unavailable Unavailable HESTER, LETITIA MD Unavailable Unavailable HESTER, LETITIA MD Unavailable Unavailable HESTER, LETITIA MD Unavailable Unavailable HESTER, LETITIA MD Unavailable Unavailable HESTER, LETITIA MD Unavailable Unavailable LETITIA HESTER MD Unavailable Unavailable LETITIA HESTER MD Unavailable Unavailable LETITIA HESTER MD Unavailable Unavailable LETITIA HESTER MD Unavailable Unavailable LETITIA HESTER MD Unavailable Unavailable LETITIA HESTER MD Unavailable Unavailable LETITIA HESTER MD Unavailable Unavailable LETITIA HESTER MD Unavailable Unavailable LETITIA HESTER MD Unavailable Unavailable LETITIA HESTER MD Unavailable Unavailable LETITIA HESTER MD Unavailable Unavailable LETITIA HESTER MD Unavailable Unavailable LETITIA HESTER MD Unavailable Unavailable MADISON PEPE Unavailable Unavailable MINILos MAYES MD Unavailable Unavailable MINILos MAYES MD Unavailable Unavailable MINILos MAYES MD Unavailable Unavailable MINILos MAYES MD Unavailable Unavailable MINILos MAYES MD Unavailable Unavailable MINILos MAYES MD Unavailable Unavailable MINILos MAYES MD Unavailable Unavailable MINILos MAYES MD Unavailable Unavailable Los MORSE MD Unavailable Unavailable MINILos MAYES MD Unavailable Unavailable [place] MORSE MD Unavailable Unavailable MINILos MAYES MD Unavailable Unavailable MINILos MAYES MD Unavailable Unavailable MINILos MAYES MD Unavailable Unavailable MINILos MAYES MD Unavailable Unavailable MINILos MAYES MD Unavailable Unavailable MINILos MAYES MD Unavailable Unavailable [place] MORSE MD Unavailable Unavailable MINILos MAYES MD Unavailable Unavailable MINILos MAYES MD Unavailable Unavailable MINILos MAYES MD Unavailable Unavailable MINILos MAYES MD Unavailable Unavailable [place] M[place] MD Unavailable Unavailable Nieves TAMAYO MD Unavailable Unavailable Nieves TAMAYO MD Unavailable Unavailable Nieves TAMAYO MD Unavailable Unavailable Nieves TAMAYO MD Unavailable Unavailable Nieves TAMAYO MD Unavailable Unavailable Nieves TAMAYO MD Unavailable Unavailable Nieves TAMAYO MD Unavailable Unavailable Nieves TAMAYO MD Unavailable Unavailable Nieves TAMAYO MD Unavailable Unavailable Nieves TAMAYO MD Unavailable Unavailable Nieves TAMAYO MD Unavailable Unavailable Nieves TAMAYO MD Unavailable Unavailable Nieves TAMAYO MD Unavailable Unavailable Nieves TAMAYO MD Unavailable Unavailable Nieves TAMAYO MD Unavailable Unavailable Nieves TAMAYO MD Unavailable Unavailable Nieves TAMAYO MD Unavailable Unavailable Nieves TAMAYO MD Unavailable Unavailable Nieves TAMAYO MD Unavailable Unavailable Nieves TAMAYO MD Unavailable Unavailable Nieves TAMAYO MD Unavailable Unavailable Nieves TAMAYO MD Unavailable Unavailable Nieves TAMAYO MD Unavailable Unavailable Nieves TAMAYO MD Unavailable Unavailable Nieves TAMAYO MD Unavailable Unavailable Nieves TAMAYO MD Unavailable Unavailable Nieves TAMAYO MD Unavailable Unavailable Nieves TAMAYO MD Unavailable Unavailable Nieves TAMAYO MD Unavailable Unavailable Nieves TAMAYO MD Unavailable Unavailable Nieves TAMAYO MD Unavailable Unavailable Nieves TAMAYO MD Unavailable Unavailable Nieves TAMAYO MD Unavailable Unavailable Nieves TAMAYO MD Unavailable Unavailable Nieves TAMAYO MD Unavailable Unavailable Nieves TAMAYO MD Unavailable Unavailable Nieves TAMAYO MD Unavailable Unavailable Nieves TAMAYO MD Unavailable Unavailable Nieves TAMAYO MD Unavailable Unavailable Nieves TAMAYO MD Unavailable Unavailable Nieves TAMAYO MD Unavailable Unavailable Nieves TAMAYO MD Unavailable Unavailable Nieves TAMAYO MD Unavailable Unavailable Nieves TAMAYO MD Unavailable Unavailable Nieves TAMAYO MD Unavailable Unavailable Nieves TAMAYO MD Unavailable Unavailable Nieves TAMAYO MD Unavailable Unavailable Nieves TAMAYO MD Unavailable Unavailable Nieves TAMAYO MD Unavailable Unavailable Nieves TAMAYO MD Unavailable Unavailable Nieves TAMAYO MD Unavailable Unavailable Nieves CASSIDY MD Unavailable Unavailable Nieves CASSIDY MD Unavailable Unavailable Nieves CASSIDY MD Unavailable Unavailable Nieves CASSIDY MD Unavailable Unavailable Nieves CASSIDY MD Unavailable Unavailable Nieves CASSIDY MD Unavailable Unavailable Nieves CASSIDY MD Unavailable Unavailable Nieves CASSIDY MD Unavailable Unavailable Nieves CASSIDY MD Unavailable Unavailable NO, PCP Unavailable Unavailable Bartoszewski, Therese Carmen MS, RPA-C Unavailable Unav ailable Bartoszewski, Therese Carmen MS, RPA-C Unavailable Unav ailable Bartoszewski, Therese Carmen MS, RPA-C Unavailable Unav ailable Bartoszewski, Therese Carmen MS, RPA-C Unavailable Unav ailable Bartoszewski, Therese Carmen MS, RPA-C Unavailable Unav ailable Bartoszewski, Therese Carmen MS, RPA-C Unavailable Unav ailable Bartoszewski, Therese Carmen MS, RPA-C Unavailable Unav ailable Bartoszewski, Therese Carmen MS, RPA-C Unavailable Unav ailable Bartoszewski, Therese Carmen MS, RPA-C Unavailable Unav ailable Bartoszewski, Therese Carmen MS, RPA-C Unavailable Unav ailable Bartoszewski, Therese Carmen MS, RPA-C Unavailable Unav ailable Bartoszewski, Therese Carmen MS, RPA-C Unavailable Unav ailable Bartoszewski, Therese Carmen MS, RPA-C Unavailable Unav ailable Bartoszewski, Therese Carmen MS, RPA-C Unavailable Unav ailable Bartoszewski, Therese Carmen MS, RPA-C Unavailable Unav ailable Bartoszewski, Therese Carmen MS, RPA-C Unavailable Unav ailable Bartoszewski, Therese Carmen MS, RPA-C Unavailable Unav ailable Bartoszewski, Therese Carmen MS, RPA-C Unavailable Unav ailable Bartoszewski, Therese Carmen MS, RPA-C Unavailable Unav ailable Bartoszewski, Therese Carmen MS, RPA-C Unavailable Unav ailable Bartoszewski, Therese Carmen MS, RPA-C Unavailable Unav ailable Bartoszewski, Therese Carmen MS, RPA-C Unavailable Unav ailable Bartoszewski, Therese Carmen MS, RPA-C Unavailable Unav ailable Bartoszewski, Therese Carmen MS, RPA-C Unavailable Unav ailable Bartoszewski, Therese Carmen MS, RPA-C Unavailable Unav ailable Bartoszewski, Therese Carmen MS, RPA-C Unavailable Unav ailable Bartoszewski, Therese Carmen MS, RPA-C Unavailable Unav ailable Bartoszewski, Therese Carmen MS, RPA-C Unavailable Unav ailable Bartoszewski, Therese Carmen MS, RPA-C Unavailable Unav ailable Re-disclosure Warning The records that you are about to access may contain information from federally-assisted alcohol or drug abuse programs. If such information is present, then the following federally mandated warning applies: This information has been disclosed to you from records protected by federal confidentiality rules (42 CFR part 2). The federal rules prohibit you from making any further disclosure of this information unless further disclosure is expressly permitted by the written consent of the person to whom it pertains or as otherwise permitted by 42 CFR part 2. A general authorization for the release of medical or other information is NOT sufficient for this purpose. The Federal rules restrict any use of the information to criminally investigate or prosecute any alcohol or drug abuse patient.The records that you are about to access may contain highly sensitive health information, the redisclosure of which is protected by Article 27-F of the [facility] Public Health law. If you continue you may have access to information: Regarding HIV / AIDS; Provided by facilities licensed or operated by the [facility] Office of Mental Health; or Provided by the [facility] Office for People With Developmental Disabilities. If such information is present, then the following [facility] mandated warning applies: This information has been disclosed to you from confidential records which are protected by state law. State law prohibits you from making any further disclosure of this information without the specific written consent of the person to whom it pertains, or as otherwise permitted by law. Any unauthorized further disclosure in violation of state law may result in a fine or mcfp sentence or both. A general authorization for the release of medical or other information is NOT sufficient authorization for further disc losure. Allergies and Adverse Reactions Type Description Substance Reaction Status Data Source(s ) No Known Food Allergies No Known Food Allergies [facility] Drug allergy CODEINE CODEINE [facility] Drug allergy NAPROXEN NAPROXEN [facility] Family History Family Member Name Family Member Gender Family Member Status Date o f Status Description Data Source(s) Unknown Condition [facility] Unknown Condition [facility] Unknown Condition [facility] Unknown Condition [facility] Unknown Condition [facility] Unknown Condition [facility] Unknown Condition [facility] Unknown Condition [facility] Unknown Condition [facility] Encounters Encounter Providers Location Date Indications Data Source(s ) Outpatient Attender: SANTOS SHOOK MD 11/28/2020 12:00:0 0 AM [facility] Outpatient Attender: MADISON PEPE 07/17/2020 12:00:00 A M [facility] Outpatient Attender: KOTA SIERRA MD [id number] 06/28/2020 12:00:00 AM [facility] Primary osteoarthritis, right ankle and foot [facility] Primary osteoarthritis, right ankle and foot Outpatient Attender: MADISON PEPE 06/26/2020 12:00:00 A M [facility] Outpatient [address] [facility] [address] 06/12/2020 12:00:00 AM EST [facility]CW1 ([facility]) Outpatient Attender: SANTOS SHOOK MD [id number] 04/2020 12:00:00 AM EST - 06/06/2020 02:43:30 PM EST Post-traumatic bulbous urethral stricture [facility] Post-traumatic bulbous urethral strictur e Outpatient Attender: MADISON PEPE 06/05/2020 12:00:00 A M [facility] Outpatient Attender: Shannan Negrete MDConsultant: LETITIA HESTER MD 06/01/2020 01:00:00 PM [facility] - 06/01/2020 01:00:00 PM [facility] Outpatient Attender: MADISON PEPE 05/24/2020 12:00:00 A [facility] Unknown [address] [facility] [address] 05/22/2020 12:00:00 AM EDT eCW1 ([facility]) Unknown [address] [facility] [address] 05/22/2020 12:00:00 AM EDT eCW1 ([facility]) Unknown [address] [facility] [address] 05/18/2020 12:00:00 AM EDT eCW1 ([facility]) [place] [address] [facility] [place] [address] 05/15/2020 12:00:00 AM EDT eCW1 ([facility]) Outpatient Attender: SANTOS SHOOK MD [id number] 12:00:00 AM EDT - 05/09/2020 02:16:06 PM [facility] Outpatient Referrer: ADITYA TANG 04/26/2020 12:00:00 AM EDT Primary osteoarthritis, right ankle and foot [facility] Primary osteoarthritis, right ankle and foot Outpatient Referrer: ADITYA TANG 04/26/2020 12:00:00 AM EDT Primary osteoarthritis, right ankle and foot [facility] Primary osteoarthritis, right ankle and foot Outpatient Attender: ADITYA TANG [id number] 04/26/2020 12:00:00 AM EDT Primary osteoarthritis, right ankle and foot [facility] Primary osteoarthritis, right ankle and foot Outpatient Attender: Shannan Negrete MDConsultant: LETITIA HESTER MD 04/20/2020 02:36:00 PM EDT - 04/20/2020 02:36:00 PM EDT [facility] Outpatient Attender: LETITIA HESTER MDConsultant: LETITIA Madison MD 04/05/2020 10:11:00 AM EDT - 04/05/2020 10:11:00 AM EDT [facility] Outpatient Attender: ALESHIA GEORGES MDConsultant: LETITIA Madison MD 03/29/2020 01:51:00 PM EDT - 03/29/2020 01:51:00 PM EDT [facility] Outpatient Attender: LETITIA HESTER MDConsultant: LETITIA Madison MD 03/27/2020 12:49:00 PM EDT - 03/27/2020 12:49:00 PM EDT [facility] Outpatient Attender: KOTA SIERRA MD 03/24/2020 12: 00:00 AM [facility] Emergency Attender: CLEO GRUBERConsultant: LETITIA Madison MD 03/22/2020 03:26:00 PM EDT - 03/22/2020 05:25:00 PM EDT [facility] Patient discharged. Outpatient Attender: ALTAGRACIA DAVIS [id number]: LETITIA HANSEN MD 03/20/2020 12:00:00 AM [facility] Outpatient Attender: KOTA SIERRA MD 03/15/2020 12: 00:00 AM [facility] Emergency Attender: HITESH MELGAR MDConsultant: LETITIA HESTER MD 03/09/2020 05:46:00 PM EDT - 03/10/2020 12:45:00 AM EDT [facility] Patient discharged. Outpatient Attender: LETITIA HESTER MD Family Practice 02/23/2020 1 1:00:00 AM EDT [facility] Outpatient Attender: LETITIA HSETER MDConsultant: LETITIA Madison MD 02/23/2020 10:36:00 AM EDT - 02/23/2020 10:36:00 AM EDT [facility] Outpatient Attender: ROBERT TAMAYO MDReferrer: ROBERT TAMAYO MD MOB-MOB.PAT 02/04/2020 10:47:57 AM EDT - 02/04/2020 11:35:59 AM EDT [facility] Outpatient Attender: ROBERT TAMAYO MDReferrer: ROBERT TAMAYO MD MOB-MOB.PAT 02/04/2020 10:12:45 AM EDT - 02/04/2020 10:12:49 AM EDT [facility] SDC Attender: ROBERT TAMAYO MDAdmitter: ROBERT TAMAYO MD ES1-OR 02/02/2020 10:39:51 AM EDT - 02/09/2020 05:00:00 PM EDT [facility] Patient discharged. Outpatient Referrer: ROBERT TAMAYO MD 01/31/2020 01:06:48 P M EDT [facility] Emergency Attender: MILAGROS MORSE MDConsultant: LETITIA Madison MD 01/27/2020 11:08:00 AM EDT - 01/27/2020 01:46:00 PM EDT [facility] Patient discharged. Outpatient Attender: Lance De La Rosa MD Main Office 01/18/2020 02:15:00 PM EDT [facility]) Outpatient Attender: LETITIA HESTER MDConsultant: LETITIA Madison MD 01/17/2020 09:33:00 AM EDT - 01/17/2020 10:33:00 AM EDT [facility] Emergency Attender: MILAGROS MORSE MDConsultant: LETITIA Madison MD 01/13/2020 01:42:00 PM EDT - 01/13/2020 05:54:00 PM EDT [facility] Patient discharged. Outpatient Attender: LETITIA HESTER MD Family Practice 01/12/2020 0 1:20:00 PM EDT [facility] ([facility]) Outpatient Attender: LETITIA HESTER MDConsultant: LETITIA Madison MD 01/12/2020 12:32:00 PM EDT - 01/12/2020 12:32:00 PM EDT [facility] Outpatient Attender: SALVADOR KAMARA MDConsultant: LETITIA HESTER MD 12/31/2019 08:45:00 AM EDT - 12/31/2019 11:35:00 AM EDT [facility] Patient discharged. Outpatient Attender: Carmen Biswas MS, RPA-CConsultan t: LETITIA HESTER MD 12/28/2019 09:05:00 AM EDT - 12/28/2019 09:15:00 AM EDT [facility] Patient discharged. Outpatient Attender: SALVADOR KAMARA MDConsultant: LETITIA HESTER MD 12/15/2019 11:32:18 AM EDT [facility] Outpatient Attender: ALESSIO SOTELO CDN, RDConsultant: LETITIA HESTER MD 12/14/2019 12:59:00 PM EDT - 12/14/2019 12:59:00 PM EDT [facility] Outpatient Attender: SALVADOR KAMARA MDConsultant: LETITIA HESTER MD 12/13/2019 02:57:37 PM EDT - 12/14/2019 12:20:00 PM EDT [facility] Patient discharged. Outpatient Attender: LETITIA HESTER MDConsultant: LETITIA Madison MD 11/29/2019 10:16:00 AM EDT - 12/16/2019 08:54:00 AM EDT [facility] Patient discharged. Outpatient Attender: LETITIA HESTER MDConsultant: LETITIA Madison MD 11/25/2019 12:56:00 PM EDT - 11/25/2019 12:56:00 PM EDT [facility] Outpatient Attender: SALVADOR KAMARA MDConsultant: LETITIA HESTER MD 11/23/2019 11:13:00 AM EDT - 11/23/2019 11:13:00 AM EDT [facility] Outpatient Attender: SALVADOR KAMARA MD Family Practice 11/23/2019 08:15:0 0 AM EDT [facility] ([facility]) Outpatient Attender: LETITIA HESTER MDConsultant: LETITIA Madison MD 11/19/2019 10:35:00 AM EDT - 11/19/2019 11:36:00 AM EDT [facility] Outpatient Attender: LETITIA HESTER MD Family Practice 11/18/2019 0 3:00:00 PM EDT [facility] ([facility]) Outpatient Attender: LETITIA HESTER MDConsultant: PCP NO 11/18/2019 02:08:00 PM EDT - 11/18/2019 02:08:00 PM EDT [facility] Emergency Attender: YI CASSIDY MDConsultant: PCP NO 10/21/2019 03:31:00 PM EDT - 10/21/2019 05:41:00 PM EDT [facility] Patient discharged. Outpatient Attender: KOTA SIERRA MD 10/15/2019 12: 00:00 AM EDT [facility] OutpatientEST-LEVEL 4 Attender: KELLEN PRIETO [facility] Podiatr y 10/06/2019 02:30:00 PM EDT - 10/06/2019 02:30:00 PM EDT Nail dystrophyUnspecified osteoarthritis, [facility] Nail dystrophy Unspecified osteoarthritis, unspecified site Outpatient Attender: Kota QUINTEROeferrer: Kota Anderson MD 09/14/2019 03:48:00 PM EST - 09/14/2019 04:28:00 PM EST [facility] Outpatient Attender: Lance Bryanterrer: Kota collins MD 08/12/2019 01:49:00 PM EST [facility] Outpatient Referrer: KOTA SIERRA MD 06/16/20 19 03:57:22 PM EST Primary osteoarthritis, right ankle and foot [facility] Primary osteoarthritis, right ankle and foot Outpatient Attender: KOTA SIERRA MD [id number] 06/16/2019 12:00:00 AM EST Primary osteoarthritis, right ankle and foot [facility] Primary osteoarthritis, right ankle and foot Immunizations Vaccine Date Status Description Data Source(s) This CVX code allows reporting of a vacc ination when formulation is unknown (for example, when recording a Influenza vaccination when noted on a vaccination card) 07/19/2019 12:00:00 AM EST completed influenza, injectable , quadriv [facility] This CVX code allows reporting of a vacc ination when formulation is unknown (for example, when recording a Influenza vaccination when noted on a vaccination card) 07/19/2019 12:00:00 AM EST completed influenza, injectable , quadriv [facility] Medications Medication Brand Name Start Date Product Form Dose Route Admi nistrative Instructions Pharmacy Instructions Status Indications Reaction Description Data Source(s) [facility]. Devices (DURABLE MEDICAL EQUIPMENT SEE SIG) XX [facility] 97 [id number] 06/28/2020 12:00:00 AM EST active Use as directed. Roll A Bout Knee Scooter Dx: [facility] Clindamycin 0.01 MG/MG Topical Gel Clindamycin Phospha te 1 % Clindamycin Phosphate 1 % 06/12/2020 12:00:00 AM EST 1.0 {application} active Clindamycin Phosphate 1 % eCW1 ([facility]) lidocaine (XYLOCAINE) 2 % urojet 20 mL [address]-2 0 01:30:00 PM EST 20 mL Urethral completed 20 mL, Urethr al, Once, 06/06/20 at 1330, For 1 dose [facility] Medication administered onsite Cephalexin 500 MG Oral Capsule cephALEXin (KEFLEX) cap gt 500 mg cephALEXin (KEFLEX) capsule 500 mg 06/06/2020 01:30:00 PM EST 500 mg Oral completed 500 mg, Oral, Once, 06/06/20 at 1330 , For 1 dose [facility] Medication administered onsite alclometasone dipropionate 0.5 MG/ML Top ical Cream Alclometasone Dipropionate 0.05 % Alclometasone Dipropionate 0.05 % 05/15/2020 12:00:00 AM EDT 1.0 {application} active Alclometasone Dipr opionate 0.05 % eCW1 ([facility]) ciclopirox 10 MG/ML Medicated Shampoo Ciclopirox 1 % Ciclopi oneil 1 % 05/15/2020 12:00:00 AM EDT 1.0 {application} active Ciclopirox 1 % eCW1 ([facility]) ciclopirox 10 MG/ML Medicated Shampoo Ciclopirox 1 % Ciclopi oneil 1 % 05/15/2020 12:00:00 AM EDT 1.0 {application} active Ciclopirox 1 % eCW1 ([facility]) Doxycycline Monohydrate 50 MG Oral Capsule Doxycycline Monoh ydrate 50 MG 05/15/2020 12:00:00 AM EDT 1.0 {capsule} active Doxycycline Monohydrate 50 MG eCW1 ([facility]) alclometasone dipropionate 0.5 MG/ML Top ical Cream Alclometasone Dipropionate 0.05 % Alclometasone Dipropionate 0.05 % 05/15/2020 12:00:00 AM EDT 1.0 {application} active Alclometasone Dipr opionate 0.05 % eCW1 ([facility]) Doxycycline Monohydrate 50 MG Oral Capsule Doxycycline Monoh ydrate 50 MG 05/15/2020 12:00:00 AM EDT 1.0 {capsule} active Doxycycline Monohydrate 50 MG eCW1 ([facility]) alclometasone dipropionate 0.5 MG/ML Top ical Cream Alclometasone Dipropionate 0.05 % Alclometasone Dipropionate 0.05 % 05/15/2020 12:00:00 AM EDT 1.0 {application} active Alclometasone Dipr opionate 0.05 % eCW1 ([facility]) ciclopirox 10 MG/ML Medicated Shampoo Ciclopirox 1 % Ciclopi oniel 1 % 05/15/2020 12:00:00 AM EDT 1.0 {application} active Ciclopirox 1 % eCW1 ([facility]) alclometasone dipropionate 0.5 MG/ML Top ical Cream Alclometasone Dipropionate 0.05 % Alclometasone Dipropionate 0.05 % 05/15/2020 12:00:00 AM EDT 1.0 {application} active Alclometasone Dipr opionate 0.05 % eCW1 ([facility]) ciclopirox 10 MG/ML Medicated Shampoo Ciclopirox 1 % Ciclopi oneil 1 % 05/15/2020 12:00:00 AM EDT 1.0 {application} active Ciclopirox 1 % eCW1 ([facility]) Doxycycline Monohydrate 50 MG Oral Capsule Doxycycline Monoh ydrate 50 MG 05/15/2020 12:00:00 AM EDT 1.0 {capsule} active Doxycycline Monohydrate 50 MG eCW1 ([facility]) Doxycycline Monohydrate 50 MG Oral Capsule Doxycycline Monoh ydrate 50 MG 05/15/2020 12:00:00 AM EDT 1.0 {capsule} active Doxycycline Monohydrate 50 MG eCW1 ([facility]) Docusate Sodium 100 MG Oral Capsule [DOK] DOK 100 MG O ral Capsule DOK 100 MG Oral Capsule 04/07/2020 12:00:00 AM EDT 100 mg Oral activ e Take 100 mg by mouth daily [facility] Desvenlafaxine Succinate ER 100 MG Oral Tablet Extended Release 24 Hour (PRISTIQ) 9764-6420-49 04/07/2020 12:00:00 AM EDT Oral active Take by mouth daily [facility] Nystatin 100 UNT/MG Topical Powder Nysta tin [id number] UNIT/GM External Powder (MYCOSTATIN) Nystatin [id number] UNIT/GM External Powder (MYCOSTATIN) 0 03/27/2020 12:00:00 AM EDT active APPLY TO AFFECTED AREA S TWO TIMES A DAY ABDOMINAL FOLDS [facility] heparin (porcine) injection 5,000 Units [id number] 02/09/20 05:00:00 PM EDT 5000 U Subcutaneous active 5,000 Units , Subcutaneous, Every 8 hours (scheduled), First dose on Fri02/09/20 at 1700, Post-op
If platelet count is less than 100,000 or hematocrit is less than 25, or if there is a 5 point decrea se in hematocrit, do not give the dose and call physician/designee.
[facility] Medication administered onsite dextrose 5 % and sodium chloride 0.9 % infusion [id number] 02/09/2020 05:00:00 PM EDT Intravenous active at 1 00 mL/hr, Intravenous, Continuous, Starting Fri02/09/20 at 1700, Post-op
Hep lock with good PO
[facility] Medication administered onsite Oxycodone Hydrochloride 5 MG Oral Tablet oxyCODONE (ROXICODONE) immediate release tablet 5 mg oxyCODONE (ROXICODONE) immediate release tablet 5 mg 02/09/2020 04:27:42 PM EDT 5 mg Oral active 5 mg, Oral, Every 4 hours PRN, moderate pain (4-6), Starting Fri02/09/20 at 1627, For 7 days, Post-op [facility] Medication administered onsite ondansetron (ZOFRAN) injection 4 mg [id number] 02/09/2020 04:27:4 2 PM EDT 4 mg Intravenous active 4 mg, In travenous, Every 6 hours PRN, nausea, vomiting, Starting Fri02/09/20 at 1627, Post-op [facility] Medication administered onsite Magnesium Chloride 0.23354 MEQ/ML / Pota ssium Chloride 0.0497 MEQ/ML / Sodium Acetate 0.0163 MEQ/ML / Sodium Chloride 0.0899 MEQ/ML / Sodium gluconate 5.02 MG/ML Injectable Solution [Normosol-R] electrolyte-R (NORMOSOL-R/PLASMALYTE-R) solution electrolyte-R (NORMOSOL-R/PLASMALYTE-R) solution 02/08 04:00:00 PM EDT Intravenous active at 1 00 mL/hr, Intravenous, Continuous, Starting Fri02/09/20 at 1600, PACU & Post-op [facility] Medication administered onsite normal saline flush 0.9 % injection 3 mL [id number] 02/09/2020 04:00:00 PM EDT 3 mL Intravenous active 3 mL , Intravenous, Every 8 hours (scheduled), First dose on Fri02/09/20 at 1600, PACU (only)
flush per protocol, D/C Main IV fluid if appropriate
[facility] Medication administered onsite 10 ML Atropine Sulfate 0.1 MG/ML Prefill ed Syringe atropine sulfate injection 0.5 mg atropine sulfate injection 0.5 mg 02/09/2020 02:45:03 PM EDT 0.5 mg active 0.5 mg, Intrave nous Push, Every 5 min PRN, other, As needed, for heart rate less than 60 BPM and the patient is hemodynamically unstable and/or SBP is less than 90mmHg, Starting Fri02/09/20 at 1445, For 1 day, PACU (only)
Not to exceed a total of 3 mg or 0.04 mg/kg. Max of 6 doses
[facility] Medication administered onsite fentaNYL Citrate (PF) (SUBLIMAZE) injection 25 mcg [id number] 02/09/2020 02:45:03 PM EDT 25 ug Intravenous completed 25 mcg, Intravenous, Every 5 min PRN, moderate pain (4-6), Starting Fri02/09/20 at 1445, For 4 doses, PACU (only) [facility] Medication administered onsite normal saline flush 0.9 % injection 3 mL [id number] 02/09/2020 02:00:00 PM EDT 3 mL Intravenous active 3 mL , Intravenous, Every 8 hours (scheduled), First dose on Fri02/09/20 at 1400, Pre-op
Rapid push positive pressure flushing shall be performed with a 10 cc normal saline syringe to check the PATENCY of a PIV site prior to any infusion therapy initiation unless resistance is met.
[facility] Medication administered onsite Oxycodone Hydrochloride 5 MG Oral Tablet oxyCODONE (ROXICODONE) 5 MG immediate release tablet oxyCODONE (ROXICODONE) 5 MG immediate release tablet 0 02/09/2020 12:00:00 AM EDT 5 mg Oral active Take 1 tablet (5 mg total) by mouth every 6 (six) hours as needed for pain Max Daily Amount: 20 mg [facility] Levetiracetam 500 MG Oral Tablet [Keppra] Keppra 01/20/2020 12:00 :00 AM EDT ORAL active [facility] ([facility]) montelukast 10 MG Oral Tablet Montelukast Sodium 11/22/2019 12:00:00 AM EDT ORAL active [facility] ([facility]) Docusate Sodium 100 MG Oral Capsule [Colace] Colace 12:00:00 AM EDT ORAL active [facility] ( [facility]) 750 mg 09/14/2019 12:00:00 AM EST tablet 60 TAKE ONE TABLET BY MOUTH FOUR TIMES A DAY NEEDED FOR SPASMS MAXIMUM DAILY DOSE = FOUR TABLETS USE SPARINGLY AND ONLY NEEDED FOR PAIN TAKE ONE TABLET BY MOUTH FOUR TIMES A DAY NEEDED FOR SPASMS MAXIMUM DAILY DOSE = FOUR TABLETS USE SPARINGLY AND ONLY NEEDED FOR PAIN SOLD: 09/14/2019 [facility] Mirtazapine 15 MG Oral Tablet Mirtazapine 08/30/2019 09:14:43 AM EST 15 MG active [facility] Methocarbamol 750 MG Oral Tablet Methocarbamol 08/30/2019 09:12:29 AM EST 750 MG active [facility] 750 mg 08/30/2019 12:00:00 AM EST tablet 60 TAKE ONE TABLET BY MOUTH FOUR TIMES A DAY TAKE ONE TABLET BY MOUTH FOUR TIMES A DAY SOLD: 08/30/2019 [facility] 15 mg 08/30/2019 12:00:00 AM EST tablet 30 TAKE ONE TABLET BY MOUTH EVERY DAY TAKE ONE TABLET BY MOUTH EVERY DAY SOLD: 08/30/2019 [facility] Doxycycline Monohydrate 50 MG Oral Capsule Doxycycline Monoh ydrate 08/19/2019 09:11:55 AM EST 50 MG active [facility] cetirizine hydrochloride 10 MG Oral Capsule Cetirizine Cetir izine 08/19/2019 09:11:50 AM EST 10 MG active [facility] 10 mg 08/19/2019 12:00:00 AM EST tablet 30 TAKE 1 TABLET BY MOUTH ONCE DAILY NEEDED FOR ALLERGY SYMPTOMS TAKE 1 TABLET BY MOUTH ONCE DAILY NEE DED FOR ALLERGY SYMPTOMS SOLD: 09/21/2019 [facility] 10 mg 08/19/2019 12:00:00 AM EST tablet 30 TAKE 1 TABLET BY MOUTH ONCE DAILY NEEDED FOR ALLERGY SYMPTOMS TAKE 1 TABLET BY MOUTH ONCE DAILY NEE DED FOR ALLERGY SYMPTOMS SOLD: 2019 [facility] 50 mg 08/18/2019 12:00:00 AM EST capsule 30 TAKE ONE CAPSULE BY MOUTH EVERY DAY WEAR SUN PROTECTION DURING TREATMENT TAKE ONE CAPSULE BY MOUTH EVERY DAY WEAR SUN PROTECTION DURING TREATMENT SOLD: 09/21/2019 [facility] 50 mg 08/18/2019 12:00:00 AM EST capsule 30 TAKE ONE CAPSULE BY MOUTH EVERY DAY WEAR SUN PROTECTION DURING TREATMENT TAKE ONE CAPSULE BY MOUTH EVERY DAY WEAR SUN PROTECTION DURING TREATMENT SOLD: 08/18/2019 [facility] topiramate 200 MG Oral Tablet TOPIRAMATE 08/01/2019 12:00:00 AM EST ta blet 60 TAKE ONE TABLET BY MOUTH TWICE A DAY TAKE ONE TABLET BY MOUTH TWICE A DAY SOLD: 2019 [facility] topiramate 200 MG Oral Tablet TOPIRAMATE 08/01/2019 12:00:00 AM EST ta blet 60 TAKE ONE TABLET BY MOUTH TWICE A DAY TAKE ONE TABLET BY MOUTH TWICE A DAY SOLD: 08/01/2019 [facility] topiramate 200 MG Oral Tablet Topiramate Topiramate 020 02:39:04 PM EST 200 MG active [facility] 750 mg 07/18/2019 12:00:00 AM EST tablet 60 TAKE ONE TABLET BY MOUTH FOUR TIMES A DAY TAKE ONE TABLET BY MOUTH FOUR TIMES A DAY SOLD: 08/11/2019 [facility] 750 mg 07/18/2019 12:00:00 AM EST tablet 60 TAKE ONE TABLET BY MOUTH FOUR TIMES A DAY TAKE ONE TABLET BY MOUTH FOUR TIMES A DAY SOLD: 07/18/2019 [facility] Methocarbamol 750 MG Oral Tablet Methocarbamol 07/13/2019 03:23:25 PM EST 750 MG completed [facility] 750 mg 07/06/2019 12:00:00 AM EST tablet 60 TAKE ONE TABLET BY MOUTH FOUR TIMES A DAY TAKE ONE TABLET BY MOUTH FOUR TIMES A DAY SOLD: 07/06/2019 [facility] Methocarbamol 750 MG Oral Tablet Methocarbamol 07/05/2019 04:44:44 PM EST 750 MG completed [facility] methylPREDNISolone acetate (DEPO-MEDROL) injection 40 mg [id number] 06/16/2019 03:45:00 PM EST 40 mg Intra-articular completed 40 mg, Intra- articular, Once, Fri06/16/19 at 1545, For 1 dose
Depo-medrol 1 cc - [id number]
[facility] Medication administered onsite 750 mg 06/09/2019 12:00:00 AM EST tablet 60 TAKE ONE TABLET BY MOUTH FOUR TIMES A DAY TAKE ONE TABLET BY MOUTH FOUR TIMES A DAY SOLD: 06/09/2019 [facility] 100 mg 06/04/2019 12:00:00 AM EST tablet extended release 24 hr 30 TAKE ONE TABLET BY MOUTH EVERY DAY TAKE ONE TABLET BY MOUTH EVERY DAY SOLD: 08/01/2019 [facility] 100 mg 06/04/2019 12:00:00 AM EST tablet extended release 24 hr 30 TAKE ONE TABLET BY MOUTH EVERY DAY TAKE ONE TABLET BY MOUTH EVERY DAY SOLD: 09/01/2019 [facility] 100 mg 06/04/2019 12:00:00 AM EST tablet extended release 24 hr 30 TAKE ONE TABLET BY MOUTH EVERY DAY TAKE ONE TABLET BY MOUTH EVERY DAY SOLD: 07/01/2019 [facility] 100 mg 06/04/2019 12:00:00 AM EST capsule 90 TAKE ONE CAPSULE BY MOUTH AT BEDTIME TAKE ONE CAPSULE BY MOUTH AT BEDTIME SOLD: 2019 [facility] Methocarbamol 750 MG Oral Tablet Methocarbamol 06/03/2019 08:54:31 AM EST 750 MG [facility] Mirtazapine 15 MG Oral Tablet Mirtazapine 06/01/2019 02:30:05 PM EST 15 MG [facility] 15 mg 06/01/2019 12:00:00 AM EST tablet 30 TAKE ONE TABLET BY MOUTH EVERY DAY TAKE ONE TABLET BY MOUTH EVERY DAY SOLD: 07/26/2019 [facility] 15 mg 06/01/2019 12:00:00 AM EST tablet 30 TAKE ONE TABLET BY MOUTH EVERY DAY TAKE ONE TABLET BY MOUTH EVERY DAY SOLD: 06/30/2019 [facility] Methylprednisolone Methylprednisolone 05/31/2019 06:14:06 PM EST 0 [facility] cetirizine hydrochloride 10 MG Oral Capsule Cetirizine Cetir izine 05/17/2019 09:13:30 AM EDT 10 MG [facility] Doxycycline Monohydrate 50 MG Oral Capsule Doxycycline Monoh ydrate 05/17/2019 09:13:09 AM EDT 50 MG [facility] 600 mg 05/17/2019 12:00:00 AM EDT tablet 90 TAKE ONE TABLET BY MOUTH THREE TIMES A DAY TAKE ONE TABLET BY MOUTH THREE TIMES A DAY SOLD: 07/18/2019 [facility] 600 mg 05/17/2019 12:00:00 AM EDT tablet 90 TAKE ONE TABLET BY MOUTH THREE TIMES A DAY TAKE ONE TABLET BY MOUTH THREE TIMES A DAY SOLD: 08/15/2019 [facility] 600 mg 05/17/2019 12:00:00 AM EDT tablet 90 TAKE ONE TABLET BY MOUTH THREE TIMES A DAY TAKE ONE TABLET BY MOUTH THREE TIMES A DAY SOLD: 06/17/2019 [facility] 50 mg 05/17/2019 12:00:00 AM EDT capsule 30 TAKE ONE CAPSULE BY MOUTH EVERY DAY ( SUN PROTECTION DURING TREATMENT) TAKE ONE CAPSULE BY MOUTH EVERY DAY ( CARLSON N PROTECTION DURING TREATMENT) SOLD: 06/17/2019 [facility] 600 mg 05/17/2019 12:00:00 AM EDT tablet 90 TAKE ONE TABLET BY MOUTH THREE TIMES A DAY TAKE ONE TABLET BY MOUTH THREE TIMES A DAY SOLD: 09/21/2019 [facility] 10 mg 05/17/2019 12:00:00 AM EDT tablet 30 TAKE ONE TABLET BY MOUTH EVERY DAY NEEDED FOR ALLERGY SYMPTOMS TAKE ONE TABLET BY MOUTH EVERY DAY NE EDED FOR ALLERGY SYMPTOMS SOLD: 07/18/2019 [facility] 10 mg 05/17/2019 12:00:00 AM EDT tablet 30 TAKE ONE TABLET BY MOUTH EVERY DAY NEEDED FOR ALLERGY SYMPTOMS TAKE ONE TABLET BY MOUTH EVERY DAY NE EDED FOR ALLERGY SYMPTOMS SOLD: 06/17/2019 [facility] 50 mg 05/17/2019 12:00:00 AM EDT capsule 30 TAKE ONE CAPSULE BY MOUTH EVERY DAY ( SUN PROTECTION DURING TREATMENT) TAKE ONE CAPSULE BY MOUTH EVERY DAY ( CARLSON N PROTECTION DURING TREATMENT) SOLD: 07/18/2019 [facility] 40 mg 04/14/2019 12:00:00 AM EDT capsule,delayed release (DR/EC) 60 TAKE ONE CAPSULE BY MOUTH TWICE A DAY TAKE ONE CAPSULE BY MOUTH TWICE A DAY SOLD: 09/21/2019 [facility] 40 mg 04/14/2019 12:00:00 AM EDT capsule,delayed release (DR/EC) 60 TAKE ONE CAPSULE BY MOUTH TWICE A DAY TAKE ONE CAPSULE BY MOUTH TWICE A DAY SOLD: 2019 [facility] 40 mg 04/14/2019 12:00:00 AM EDT capsule,delayed release (DR/EC) 60 TAKE ONE CAPSULE BY MOUTH TWICE A DAY TAKE ONE CAPSULE BY MOUTH TWICE A DAY SOLD: 07/26/2019 [facility] 40 mg 04/14/2019 12:00:00 AM EDT capsule,delayed release (DR/EC) 60 TAKE ONE CAPSULE BY MOUTH TWICE A DAY TAKE ONE CAPSULE BY MOUTH TWICE A DAY SOLD: 06/17/2019 [facility] montelukast 10 MG Oral Tablet MONTELUKAST SODIUM 04/13/2019 12:0 0:00 AM EDT tablet 30 TAKE ONE TABLET BY MOUTH EVERY D AY TAKE ONE TABLET BY MOUTH EVERY DAY SOLD: 09/08/2019 [facility] montelukast 10 MG Oral Tablet MONTELUKAST SODIUM 04/13/2019 12:0 0:00 AM EDT tablet 30 TAKE ONE TABLET BY MOUTH EVERY D AY TAKE ONE TABLET BY MOUTH EVERY DAY SOLD: 08/11/2019 [facility] montelukast 10 MG Oral Tablet MONTELUKAST SODIUM 04/13/2019 12:0 0:00 AM EDT tablet 30 TAKE ONE TABLET BY MOUTH EVERY D AY TAKE ONE TABLET BY MOUTH EVERY DAY SOLD: 07/18/2019 [facility] 10 mg 04/13/2019 12:00:00 AM EDT tablet 30 TAKE ONE TABLET BY MOUTH EVERY DAY TAKE ONE TABLET BY MOUTH EVERY DAY SOLD: 06/17/2019 [facility] 62.5 mcg/actuation 03/19/2019 12:00:00 AM EDT blister with d evice 30 INHALE 1 INHALATION BY MOUTH EVERY 24 HOURS INHALE 1 INHALATION BY MOUTH EVERY 24 HO URS SOLD: 09/01/2019 [facility] topiramate 200 MG Oral Tablet TOPIRAMATE 01/07/2019 12:00:00 AM EDT ta blet 60 TAKE ONE TABLET BY MOUTH TWICE A DAY TAKE ONE TABLET BY MOUTH TWICE A DAY SOLD: 06/30/2019 [facility] topiramate 200 MG Oral Tablet Topiramate Topiramate 019 12:59:00 PM EDT 200 MG completed [facility]. Devices (DURABLE MEDICAL EQUIPMENT SEE SIG) [facility] [id number] 10/09/2018 12:00:00 AM EDT aborted Use as directed. Rolling walker with seat Dx: Right ankle arthritis [facility] gabapentin 100 MG Oral Capsule gabapentin (NEURONTIN) 100 MG capsule gabapentin (NEURONTIN) 100 MG capsule 03/03/2018 12:00:00 AM EDT 100 mg Oral aborted Take 100 mg by mouth Daily [facility] maalox/lidocaine/diphenhydrAMINE (RADIATION MIXTURE) 1:1:1 o ral suspension 05/29/2017 12:00:00 AM EDT 10 mL Swish & Spit aborted Swish and spit 10 mLs every 2 (two) hours as needed (For Mouth Pain)Pharmacy compound: Maalox, lidocaine viscous 2 %, Benadryl 12.5 mg/5 mL [facility] PARoxetine (PAXIL) 30 MG tablet [id number] 30 mg Oral aborted Take 30 mg by mouth every morning [facility] desvenlafaxine (PRISTIQ) 50 MG 24 hr tablet [id number] 50 mg Oral aborted Take 50 mg by mouth daily. [facility] Melatonin 3 MG Oral Tablet melatonin 3 MG tablet melatonin 3 MG table t 5 mg Oral aborted Take 5 mg by m outh nightly Indications: Pt takes two tabs nightly [facility] doxycycline hyclate 50 MG Oral Capsule doxycycline ( BRAMYCIN) 50 MG capsule doxycycline (VIBRAMYCIN) 50 MG capsule 100 mg Oral aborted Take 100 mg by mouth every morning [facility] Insurance Providers Payer name Policy type / Coverage type Policy ID Covered green party ID Covered green party's relationship to de la rosa Policy [place] Plan Information UNHC COMMUNITY PLAN [id number] SP [id number] [facility] I [id number] Self [id number] UNHC COMMUNITY PLAN [facility] [id number] SP [id number] [facility] COMMUNTY PLAN [id number] [facility] COMMUNITY PLAN XIX [id number] 18 [id number] [facility] COMMUNITY PLAN [facility] [id number] SP [id number] [facility] COMMUNITY PLAN [facility] [id number] SP [id number] [facility] MEDICAID [id number] [facility] MEDICAID [id number] Sep[facility]h [id number] INSURANCE COVID-19 COVID Sepideh C OVID INSURANCE COVID-19 [id number] BLUE CROSS BLUE SHIELD-O/P [id number] 18 [id number] UNHC COMMUNITY PLAN XIX -RECURRING [id number] 18 [id number] [facility] Community Plan [id number] 99 [id number] STPP Wrap [id number] [employer] Other 0 Self 0 [employer] Other 0 Self 0 [employer]Health[employer] Other 0 Self 0 [facility] MEDICAID PI PI MEDICAID [id number] Sepideh [id number] [employer] Other 0 Self 0 [employer]Health[employer] Other 0 Self 0 [employer] Other 0 Self 0 [place] Medig[place] Part [place] [id number] Self [id number] Hmo Blue Option/Medicaid Health Maintenance Organization (HMO) [id number] Self [id number] [employer] [facility] Health Maintenance Organization (HMO) [id number] Self [id number] [place] Med[place] [id number] Self [id number] Hmo Blue Option/Medicaid Health Maintenance Organization (HMO) [id number] Self [id number] Medicaid Medicaid [id number] Self [id number] [facility]-Community Plan Commercial [id number] [place] [id number] [place] [id number] Family Dependent [id number] [id number] Community Plan Commercial [id number] Self [id number] [employer] Other 0 Self 0 UNHC COMMUNITY PLAN MCDO [id number] SP [id number] [place] [id number] Self [id number] Hmo Blue Option/Medicaid Health Maintenance Organization (HMO) [id number] Self [id number] [employer] Paul/MCR Health Maintenance Organization (HMO) [id number] Self [id number] Community Plan - c Commercial [id number] Self [id number] Community Plan - c Commercial [id number] Self [id number] United[employer] Other 0 Self 0 Medicaid [id number] Community Plan - c Commercial [id number] Self [id number] [facility] [id number] 99 [id number] Community Plan - Uhc Commercial Self [employer] Paul/MCR Medigap Part [place] Med[place] Part B Self Hmo Blue Option/Medicaid Health Maintenance Organization (HMO) Self [facility] [id number] UHC PLUS [facility] COMMUNITY PLAN [id number] SELF [id number] [employer] SCIENCE HUE PAUL [id number] SELF [id number] [facility] [id number] Patient [id number] [facility] [id number] Patient [id number] SELF PAY UNAVAILABLE SELF UNAVAILA BLE Medicaid Medicaid Self Uhc-Community Plan Commercial Self MEDICAID M [id number] Self [id number] UNITED HEALTHCARE(MCAID) P [id number] S [id number] UNITED HEALTHCARE(MCAID) P [id number] S [id number] UNITED HEALTHCARE(MCAID) P [id number] S [id number] [facility] MEDICAID 7 [id number] 1 [id number] SELFPAY 5 UNAVAILABLE 1 UNAVAILA BLE MEDICAID 3 [id number] BLUE CHOICE OPTIONS 7 [id number] MEDICAID W [id number] S [id number] BLUE CHOICE OPTION O [id number] S [id number] BLUE CROSS [place] PLAN [id number] SP [id number] BLUE CROSS [place] PLAN [id number] SP [id number] MEDICAID [id number] SP [id number] HMO BLUE [id number] UNAVAILABLE UNAVAILA BLE Problems, Conditions, and Diagnoses Code Display Name Description Problem Type Effective Dates Data Source(s) [id number] Abdominal pain Abdominal pain Problem 01/18/2020 12:00: 00 AM EDT [facility] ([facility]) [id number] Essential hypertension Essential hypertension Problem 11/18/2019 12:00:00 AM EDT [facility] ([facility]) S92.101S Unspecified fracture of right talus, seq uela Unspecified fracture of right talus, sequela Diagnosis 06/28/2020 07:03:06 AM [facility] M19.071 Primary osteoarthritis, right ankle and foot Primary osteoarthritis, right ankle and foot Diagnosis 06/28/2020 07:03:06 AM [facility] [id number] Encounter for other preprocedural examin ation Encounter for other preprocedural examination Diagnosis 04/20/2020 02:36:00 PM EDT [facility] H6123 Impacted cerumen, bilateral Impacted cerumen, bilatera l Diagnosis 04/05/2020 10:11:00 AM EDT [facility] R1033 Periumbilical pain Periumbilical pain Diagnosis 08/2019 01:51:00 PM EDT [facility] H6122 Impacted cerumen, left ear Impacted cerumen, left ear Diagnosis 03/27/2020 12:49:00 PM EDT [facility] Z6843 Body mass index (BMI) 50.0-59.9, adult B santos mass index (BMI) 50.0-59.9, adult Diagnosis 03/27/2020 12:49:00 PM EDT [facility] E669 Obesity, unspecified Obesity, unspecified Diagnosis 03/27/2020 12:49:00 PM EDT [facility] R569 Unspecified convulsions Unspecified convulsions Diagno sis 03/27/2020 12:49:00 PM EDT [facility] B372 Candidiasis of skin and nail Candidiasis of skin and n ail Diagnosis 03/27/2020 12:49:00 PM EDT [facility] R1030 Lower abdominal pain, unspecified Lower abdomina l pain, unspecified Diagnosis 03/27/2020 12:49:00 PM EDT [facility] D48180 Unspecified asthma, uncomplicated Unspecified as thma, uncomplicated Diagnosis 03/22/2020 03:26:00 PM EDT [facility] G8929 Other chronic pain Other chronic pain Diagnosis 03:26:00 PM EDT [facility] [id number] Personal history of nicotine dependence Personal history of nicotine dependence Diagnosis 03/09/2020 05:46:00 PM EDT [facility] K2970 Gastritis, unspecified, without bleeding Gastritis, unspecified, without bleeding Diagnosis 03/09/2020 05:46:00 PM EDT [facility] R109 Unspecified abdominal pain Unspecified abdominal pain Diagnosis 03/09/2020 05:46:00 PM EDT [facility] R631 Polydipsia Polydipsia Diagnosis 02/23/2020 10:36:00 AM ED T [facility] R358 Other polyuria Other polyuria Diagnosis 02/23/2020 10:36: 00 AM EDT [facility] J449 Chronic obstructive pulmonary disease, u nspecified Chronic obstructive pulmonary disease, unspecified Diagnosis 02/23/2020 10:36:00 AM EDT [facility] K43.2 Incisional hernia without obstruction or gangrene Incisional hernia without obstruction or Diagnosis 02/09/2020 08:51:00 AM EDT [facility] K43.0 Incisional hernia with obstruction, with out gangrene Incisional hernia with obstruction, with Diagnosis 02/09/2020 08:51:00 AM EDT [facility] J98.8 Other specified respiratory disorders Ot her specified respiratory disorders Diagnosis 02/04/2020 10:12:45 AM EDT [facility] U07.1 COVID-19 COVID-19 Diagnosis 02/04/2020 10:12:45 AM ED T [facility] K429 Umbilical hernia without obstruction or gangrene Umbilical hernia without obstruction or gangrene Diagnosis 01/27/2020 11:08:00 AM EDT [facility] [id number] Epilepsy, unspecified, not intractable, without status epilepticus Epilepsy, unspecified, not intractable, without status epilepticus Diagnosis 01/13/2020 01:42:00 PM EDT [facility] 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, thoracolumbar region Spondylolysi s, thoracolumbar region Diagnosis 01/12/2020 12:32:00 PM [facility] R0789 Other chest pain Other chest pain Diagnosis 01/12/2020 12 :32:00 PM [facility] V88002 Other urethral stricture, male, unspecif ied site Other urethral stricture, male, unspecified site Diagnosis 12/31/2019 08:45:00 AM [facility] R3121 Asymptomatic microscopic hematuria Asymptomatic microscopic hematuria Diagnosis 12/31/2019 08:45:00 AM [facility] Z1159 Encounter for screening for other viral diseases Encounter for screening for other viral diseases Diagnosis 12/28/2019 09:05:00 AM [facility] Z713 Dietary counseling and surveillance Dietary coun seling and surveillance Diagnosis 12/14/2019 12:59:00 PM [facility] R99 Ill-defined and unknown cause of mortali ty Ill-defined and unknown cause of mortality Diagnosis 12/14/2019 12:20:00 PM [facility] M6281 Muscle weakness (generalized) Muscle weakness (general ized) Diagnosis 11/29/2019 10:16:00 AM [facility] M545 Low back pain Low back pain Diagnosis 11/29/2019 10:16:00 AM [facility] E785 Hyperlipidemia, unspecified Hyperlipidemia, unspecifie d Diagnosis 11/25/2019 12:56:00 PM [facility] K5900 Constipation, unspecified Constipation, unspecified Di agnosis 11/25/2019 12:56:00 PM [facility] K219 Gastro-esophageal reflux disease without esophagitis Gastro-esophageal reflux disease without esophagitis Diagnosis 11/25/2019 12:56:00 PM ED T [facility] [id number] Other spondylosis, thoracic region Other spondyl osis, thoracic region Diagnosis 11/19/2019 10:35:00 AM EDT [facility] A65513 Other spondylosis, lumbar region Other spondylos is, lumbar region Diagnosis 11/19/2019 10:35:00 AM EDT [facility] Z1331 Encounter for screening for depression E ncounter for screening for depression Diagnosis 11/18/2019 02:08:00 PM EDT [facility] J309 Allergic rhinitis, unspecified Allergic rhinitis, unsp ecified Diagnosis 11/18/2019 02:08:00 PM EDT [facility] R310 Gross hematuria Gross hematuria Diagnosis 10/21/2019 03:3 1:00 PM EDT [facility] R300 Dysuria Dysuria Diagnosis 10/21/2019 03:31:00 PM ED [facility] Surgeries/Procedures Procedure Description Date Indications Data Source(s) SURGERY CASE REQUEST OUTSIDE FACILITY ONLY SURGERY CA SE REQUEST OUTSIDE FACILITY ONLY Routine 06/28/2020 1:27 PM EST Arthritis of right subtalar joint Closed displaced fracture of right talus, unspecified fracture morphology, sequela 06/28/2020 01:27:23 PM EST Closed displa loyd fracture of right talus, unspecified fracture morphology, sequelaArthritis of right subtalar joint [facility] Closed displaced fracture of right talus , unspecified fracture morphology, sequela Arthritis of right subtalar joint BLOOD TYPING ABO TYPE AND SCREEN Routine 02/09/2020 12:30 PM EDT 02/09/2020 04:30:00 PM EDT [facility] ECG ROUTINE ECG W/LEAST 12 LDS TRCG ONLY W/O I&R ECG 12-LEAD Routine 02/04/2020 11:34 AM EDT Incisional hernia with obstruction 02/04/2020 03:34:20 PM ED T Incisional hernia with obstruction [facility] Incisional hernia with obstruction BLOOD COUNT COMPLETE AUTOMATED CBC Routine 0 11:30 AM EDT Incisional hernia with obstruction 02/04/2020 03:30:00 PM ED T Incisional hernia with obstruction [facility] Incisional hernia with obstruction BASIC METABOLIC PANEL CALCIUM TOTAL BASIC METABOLIC PANEL Routi ne 02/04/2020 11:30 AM EDT Incisional hernia with obstruction 02/04/2020 03:30:00 PM ED T Incisional hernia with obstruction [facility] Incisional hernia with obstruction [facility] Interv Face To Face 15 Min 12/14/2019 12:00:00 AM EDT [facility] ([facility]) Brief Emotional/Behav Assessment W/ Scoring Doc Per Standard Inst 11/18/2019 12:00:00 AM EDT [facility] ([facility]) EST-LEVEL 4 10/06/2019 12:00:00 AM EDT - 10/06/2019 1 2:00:00 AM EDT [facility] ([facility]) Debridement, nails, 6 or more, any method 10/06/2019 12:00:00 AM EDT - 10/06/2019 12:00:00 AM EDT [facility] ([facility]) Results ID Date Data Source [id number] 07/31/2020 05:40:00 PM EST [facility] Name Value Range Interpretation Code Description Data Giovana rce(s) Supporting Document(s) SARS coronavirus 2 RNA [Presence] in Res piratory specimen by TYRON with probe detection [facility] This lab was ordered by [facility] a nd reported by [facility]. ID Date Data Source [id number] 06/28/2020 01:51:39 PM EST [facility] Name Value Range Interpretation Code Description Data Giovana rce(s) Supporting Document(s) Progress Note [facility] JSBZVf2dUjRSFgNu29/FEFtvUEQkm3JkJGhbHOl1SJlsSWXkZ3LwQWC2mX2tPDH9VRxLYeIjCoGwQfQg [facility] [file] ICAgICAgICAgICAgICAgICAgICAgICAgICAgICAgICAgICAgICAgICAgICAgICAgICAgICAgICAgICAg ICAgICAgICAgICAgICAgICAgICAgICANCiAgICAgIC AgICAgICAgICAgICAgICAgICAgICAgICAgICAgICAgICAgICAgICAgICAgICAgICAgICAgICAgICAgIC AgICAgICAgICAgICAgICAgICAgICAgICAgICAgICAgICANCiAgICAgICAgICAgICAgICAgICAgICAgIC AgICAgICAgICAgICAgICAgICAgICAgICAgICAgICAg ICAgICAgICAgICAgICAgICAgICAgICAgICAgICAgICAgICAgICAgICAgICANCiAgICAgICAgICAgICAg ICAgICAgICAgICAgICAgICAgICAgICAgICAgICAgICAgICAgICAgICAgICAgICAgICAgICAgICAgICAg ICAgICAgICAgICAgICAgICAgICAgICAgICANCiAgIC AgICAgICAgICAgICAgICAgICAgICAgICAgICAgICAgICAgICAgICAgICAgICAgICAgICAgICAgICAgIC AgICAgICAgICAgICAgICAgICAgICAgICAgICAgICAgICAgICANCiAgICAgICAgICAgICAgICAgICAgIC AgICAgICAgICAgICAgICAgICAgICAgICAgICAgICAg ICAgICAgICAgICAgICAgICAgICAgICAgICAgICAgICAgICAgICAgICAgICAgICANCiAgICAgICAgICAg ICAgICAgICAgICAgICAgICAgICAgICAgICAgICAgICAgICAgICAgICAgICAgICAgICAgICAgICAgICAg ICAgICAgICAgICAgICAgICAgICAgICAgICAgICANCi AgICAgICAgICAgICAgICAgICAgICAgICAgICAgICAgICAgICAgICAgICAgICAgICAgICAgICAgICAgIC AgICAgICAgICAgICAgICAgICAgICAgICAgICAgICAgICAgICAgICANCiAgICAgICAgICAgICAgICAgIC AgICAgICAgICAgICAgICAgICAgICAgICAgICAgICAg ICAgICAgICAgICAgICAgICAgICAgICAgICAgICAgICAgICAgICAgICAgICAgICAgICANCiAgICAgICAg ICAgICAgICAgICAgICAgICAgICAgICAgICAgICAgICAgICAgICAgICAgICAgICAgICAgICAgICAgICAg ICAgICAgICAgICAgICAgICAgICAgICAgICAgICAgIC ANCjw/hOUxM2mogIOkmwI6R9ccGc0SJo5KPJ9cb3DoBBShYZuojnWyOwhHJuMiDRUlQkeXZrc4DJqgWV 0FrGAeW3GcR1CfIHpsFV3JKIXzKHYoeIQtOLCzQJTfDkE7AMUhWOfbHT7DnCGfSSwfERHwBXLjJzZaTW MnVS7IRQYuA575etRdFa5EAp8QPvMqSC1zzt1LDsmm OUQgKncPWxr0ZLuaRH2OxBIstXMjMLCuWHDDUiToC9szq8QlGitpLNJSLLrzFM4Fg5DznRJfLLe+Pg0K MH4ou5TlNWonHXFxJX3slk2NLLdDSqCyQ3RciHmsTUYfn2blECQuAU2myDYwPVU0OAOoj0W4HJ5uUeBn enUiv4YqGuChGmpzFKVvUSHeNNZkSw6eWRQuLKUaRp RqHAHOJD3YUQEqNSTbxBZtESWgGUJNDI3LWVhtCPV0GDCqszDgwCEwEYdgZV6HWCIrggZxYpoqNBLWMJ o+Oo7EXB8wv7CmQDzhPBQmEL1pnj7WVAgCPtZoA1L8hGIlF2F0SIexIx9RPEYkDPZwQoOcXXFJLNlqMW 0PHJ7ksyD8EW4SwUMhCODnATImdJZvXOf5J44xqXZj LQbwNK7LKAP+Janeen+Cb8FDHTcSTYyKLSqNjHfIUHNPnYcZ1HzY0DIo7JpI9ZpRY63cDjosmVdIVdiKS4G DQ8xEOHfOSUCGZ5SjPVoqJ2iugWqKuUoCIYBJkTbB61pwQCaYVInZAR1MVFvBn9WRWGvN0HfsvDkvFpr cnQtYSHcXJHOFZ2JSJzqkrJtaHYtgNszKE44rMxkBF 2YWg0RHpIzTG8pgg8TeYBkCh6GDJLuKN5VYWXmKMHeNTXmHGI2GOSqDqDiILpgJTNyURVwOYV7EJVoJU LpUH1JWmUxBJXfYiH6HCFpLCVkWTNeeb1IMHMsSOZiQeC0LoRwZPXwDWYmRRoaOOCbHGHiBHY3AUUgJJ HrXR0XHfWzSQGwITC1XTUtUSZzLIThxw2ZQYLsXWJx DCZ7FmXaOUGsRAQzFBpaSABbVML6PXBiPMDcARUrNT5FZzMzOLFtMOasSITtKVKvUWQeao8CNXUyWHYb AYV6SnEjOIRoUGVpMKrsGRJeWJV9FpC7EEZoSUPoLX5EJhPhDMAbWDi3DSRaJLDhNFJnxt4PHNQdPLHk HOO3FJMyUEPpNGIkOXdhWEEvBAI4RxDxDYPkNNYnSU 2FYyJaSPSlRDf5DBldPAMnSBRikk3LPRQbGTCqJPK5BXCrUWBmRGClDUhfEDPcJTOfMGVqRECoFYCsVA 5HWaSpKRQqVzH2LoqiPEVeWNQfkx1TURMrSCZqEbZoXBBmCPCaZVBwSXnpAUYsOIWwBFL3QBVgACNnMV 8INkGgNUDeNcAvTGkoZAIwNJSiqo6RFCDlSQXpDdQ3 QUKsUHImXTVxKYriOAMjFUKlZQs6MRKfCJNbYE6VKfWvZIIsGmW7DRpwOCOuEFKvzr5UZEJuZMHsEJPs DdNxDJMkCOPnIOblWYHlGQH4Dxa2XPCrJLTmEW8TRkGvFNWiFrZcIRlmGMKdMTBizq2TRWUtKRSpCrV2 DBOnNFHqTCCtKMleQXDfVIH0RcXbUACpRXMmSM7SCw VpWCYsYaR0FNenDMXqWEIxjm9NfBNgnIuyta4SUZnSAw7CbClpUJNkXTvoFm1xgHRgYRWlYXAGIj7Qfd UkTQKrYLATPRsiGUDcJKCvMpAtIjZkYqA7CTFvTHO0XPGmGayxLtOyYmZsCFMqEyH2WYKmKCWhDQCxXM NmS5IoXuryDAPdNSI8EZHzKAQ8OuX+UD0mLEu+Uy3Kf7GqdhF1ooXxTYgzAuNcUh8TOPUIW2ZNKc== ID Date Data Source [id number] 06/06/2020 03:12:03 PM [facility] Name Value Range Interpretation Code Description Data Giovana rce(s) Supporting Document(s) Progress Note [facility] TODJRu1nHkFIFkBj42/JRDoxFTCie1YhPYiiXRl4XVevDGZzT9CyBGS6xY6nPGT4WMqFKfWgHsCbNECb lbm [file] CvP6JSS0WbD4JzJ+SI6xPRy+Il8Yj7PvtvF3atXbBImgQDJpCq6DNEILS9THGt== ID Date Data Source [id number] 05/10/2020 10:14:00 AM EDT [facility] ([facility] [place]note 2]) Name Value Range Interpretation Code Description Data Giovana rce(s) Supporting Document(s) Surgical pathology study Laboratory test result [facility] ([facility]) FINAL DIAGNOSIS Esophagus, below Z-line, biopsy: Junctional mucosa with no significant pathologic changes. No evidence of intestinal metaplasia or dysplasia. 05/11/20201505 CLINICAL DIAGNOSIS Heartburn, rectal bleeding, constipation 05/10/20201450 GROSS DIAGNOSIS Received in formalin labeled "biopsy below Z line R/O Juarez's" and consists of two fragments of steel tissue measuring 0.4 x 0.3 x 0.2 cm. in aggregate. All in one. -SV 05/10/20201450 Signed BRIE MONTAGUE MD 05/12/2020 1140 ID Date Data Source [id number] 05/09/2020 02:17:55 PM EDT [facility] Name Value Range Interpretation Code Description Data Giovana rce(s) Supporting Document(s) Progress Note [facility] ZXXIZn2tOoGRAnJl90/IGRvjKKUzi4FvOEsjSLh6HRejHZPgB2RdRWC6hM7aJYS0YUbOKwBbFcHkXOZn [facility] [file] ICAgICAgICAgICAgICAgICAgICAgICAgICAgICAgICAgICAgICAgICAgICAgICAgICAgICAgICAgICAg ICAgICAgICAgICAgICAgICAgICAgICAgICAgICAgICAgDQogICAgICAgICAgICAgICAgICAgICAgICAg ICAgICAgICAgICAgICAgICAgICAgICAgICAgICAgIC AgICAgICAgICAgICAgICAgICAgICAgICAgICAgICAgICAgICAgICAgICAgDQogICAgICAgICAgICAgIC AgICAgICAgICAgICAgICAgICAgICAgICAgICAgICAgICAgICAgICAgICAgICAgICAgICAgICAgICAgIC AgICAgICAgICAgICAgICAgICAgICAgICAgDQogICAg ICAgICAgICAgICAgICAgICAgICAgICAgICAgICAgICAgICAgICAgICAgICAgICAgICAgICAgICAgICAg ICAgICAgICAgICAgICAgICAgICAgICAgICAgICAgICAgICAgDQogICAgICAgICAgICAgICAgICAgICAg ICAgICAgICAgICAgICAgICAgICAgICAgICAgICAgIC AgICAgICAgICAgICAgICAgICAgICAgICAgICAgICAgICAgICAgICAgICAgICAgDQogICAgICAgICAgIC AgICAgICAgICAgICAgICAgICAgICAgICAgICAgICAgICAgICAgICAgICAgICAgICAgICAgICAgICAgIC AgICAgICAgICAgICAgICAgICAgICAgICAgICAgDQog ICAgICAgICAgICAgICAgICAgICAgICAgICAgICAgICAgICAgICAgICAgICAgICAgICAgICAgICAgICAg ICAgICAgICAgICAgICAgICAgICAgICAgICAgICAgICAgICAgICAgDQogICAgICAgICAgICAgICAgICAg ICAgICAgICAgICAgICAgICAgICAgICAgICAgICAgIC AgICAgICAgICAgICAgICAgICAgICAgICAgICAgICAgICAgICAgICAgICAgICAgICAgDQogICAgICAgIC AgICAgICAgICAgICAgICAgICAgICAgICAgICAgICAgICAgICAgICAgICAgICAgICAgICAgICAgICAgIC AgICAgICAgICAgICAgICAgICAgICAgICAgICAgICAg DQogICAgICAgICAgICAgICAgICAgICAgICAgICAgICAgICAgICAgICAgICAgICAgICAgICAgICAgICAg ESObLEDwHTYxPIZsLWMqJPMmNDKnGPNwJANvZXDfBHViGEXhRZKvLLRvPUp0A0kwRTBiVVFyCC5hYTs6 Jz8+NWdNFbZrXZA9zePxfX8SZE9cx4TiKOvyDPTio1 EdZZj6GW8LNIEcWNbiAV1DABujom3FSMDxJZGaaIDYa3xkUxXkFYP8WWPjPdgbDE4XFMFxV8eogpAmLP LfJNHXIIvcFWZPNAyxVCEWHSVeQXOtMrNjCGbsNN2Nf5DbuUQ6GQm+Yg0VSF0hd7GuCVoaWHFuKI6qzs 0OJCpVAhKnX1VegnE7GNJmGCWqHu9WITKbCLUbdREu QmQsGUGFQpUlF8QlgO03YHKEMx8+FQhpsyEeLlwOKrNoZKTjv2QcBGf9SU5BRBLuZSy2oRXeCKZuS4Wn j2HfRf61WFQbQvexS1PosJfamdRHWYLfSGcqxPseJO4WEWB1SGWgPyZfRvEmAyUbEBD6SHOmCH6xUDrv UU0KMGT9TGweVMPgIFYmX9cBJtHzWEPgHKDtmJveSI 5ZHlPwF1PvhvNmaRNeLGZfUPHAIn3+EPshrhDuObhSNwTyMGDyp3NhQBd4WG5XBODaVSnkWD3IENLluH 0dLSzqTG0ANgZpIYGzCDTBTrDhI26cjSMqRDx3K9DhXlRjBLBgYsxdHTPbUNizAiLlWZKzUaYjWRhcAQ 4+ID4+WEqgJY9PNVvterNkFQAoMu3PUOWbNAEgKV4x JPAaPWGaM9C9bOvfVJRUIgRzA7lgsvnfCT5gYGZlR647xLehvxStJEVwRFLnKo8OMFKqKTX5EUUmqZVk QxJzPFQXOZaxWN0YzLNhYNJ5aY7sJZjiTUUlWOYsK5kTEyFvdIufIF95uDfjvoPgdLBoFOe+Cn7JXK0g e8VbIXq9vbPwZAkgUQV6VHecCYEcDCCkNAEvZOI2MD G9CSDFRiFcJPPrHSNbZRukBJNbDEGwss3OFYUhUBY1Jny5GWQsJIFgXSBtWQieZVIbSND8SFt0OZHlIU FkAA3AXhMpQYEvJGTnBDgcYUXnJQPova7FYYFfNERjUcF0NmMfDRWeGZRnAXqzOSWqRIRzJDGsYDDpPO QcKV5GQqZpQWZmCNkbLYGfUIBzRAZdul5IBCOoLOFa SlJ1WqAaOJFxSPNsMEyoKFZoOKKgDaE8ZITrOAJwGY6FDqOsLTFxWHZ2JxKwRGOlXUAvqm9MQLJzEWIq AdCyATZqEFFnABFtYHunYSVlNAInEhX4JUOiQFQySM9AEhPnXVOcUAWvUDCiLIKiTHOyva7KRSVwCJFt APT6YJEsQGBhFNXaIEjjCAMiTKU1AvF5MFRfNPFyDF 4EHeQzHYJjGUD9UwVhOVDoKVStog3BYXEpOLRhJSkdDRAxKGPmIUAxOJmfZEItIOD9ERBrFBXbGJSfDX 0YBjPyWNDrUMedADHlZNAzQODcel9XWEFoAQS4SJq5CmFjKUFkZYCmHQzgNQIiSLUaZaXsTKGlAPPqJW 3QTdNoJNXqCCCeMbQvOBYeEWOzhj5ZNNTdDCI0XNRu XxRtAKXoYUTzMGvuMCEnLQZjJZWrRWHiYYFeCL3OFkLpNLUyIALjFJWxPTFoLQLgwx9CUIOtFHN9YrEc AtCrCHLpILMgDQrrYHWoUBMoQDY9VBGsSCDrTE5HGuSiNCGzUFP9LSRhFMVpLGCdkv0SJFNwFTY9Hrsi WoYnIBObUEQeGNakAEEkXHQ0HhD8UOKiRYTyZH3ARo SkXEKtIVD6JYRkCSVgNKPfcn9FLWSbZPA3UIq7FwQsDVRyPFVwBVcvNKCqGLN2RIO4TFJbAXKdFV3CEd OyKYsoKDRLObq6SMxbQ1s5XQRyQN1PV8Kdx5ZxPaUpTXNVAIsiLX1ppyOoCPYoAc5RP4bJAcv5BWRfA4 UsPrQmWUW0JKteTzIdDrD4LpzzNxQoKsN7GZ7yLMGd VJA5UTGbSvG8QGCnNKF4PQZbIQChIJFfH9ZzLCxaNmJkHL8NTu6BMjT9HPG2uRPaBh5SKCYzYAEGYaOx VE8FXFf= ID Date Data Source [id number] 05/05/2020 11:55:00 AM EDT [facility] Name Value Range Interpretation Code Description Data [facility](s) Supporting Document(s) SARS coronavirus 2 RNA [facility] This lab was ordered by [facility] and reported by [facility]. ID Date Data Source [id number] 04/27/2020 06:09:28 AM EDT [facility] XR FOOT 3 OR MORE VIEWS [id number] RESUL TInterpreted by:Fallon Smith ankle 2 views and right foot 3 viewsINDICATION: Subtalar arthritisCOMPARISON: CT right ankle 06/16/2019, right ankle and foot radiographs 10/07/2018FINDINGS:Right ankle:The ankle mortise is symmetric and intact. Small well-corticated ossicle distal to the fibula, chronic and unchanged from prior. No acute fracture or dislocation.Right foot:There is moderate pes cavus. 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 Small calcaneal heel spur. Minimal chronic spurring at the Achilles insertion on the calcaneus. No acute fracture or dislocation.IMPRESSION:Degenerative changes within the posterior greater than middle subtalar joints as above. Findings are similar to prior.This document has been electronically signed by Nabor Larson MD on 04/27/2020 6:07 AM Name Value Range Interpretation Code Description [facility]) ID Date Data Source [id number] 04/27/2020 06:09:28 AM EDT [facility] XR ANKLE 2 VIEWS [id number] RESULTInterp reted by:Fallon Smith ankle 2 views and right foot 3 viewsINDICATION: Subtalar arthritisCOMPARISON: CT right ankle 06/16/2019, right ankle and foot radiographs 10/07/2018FINDINGS:Right ankle:The ankle mortise is symmetric and intact. Small well-corticated ossicle distal to the fibula, chronic and unchanged from prior. No acute fracture or dislocation.Right foot:There is moderate pes cavus. 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 Small calcaneal heel spur. Minimal chronic spurring at the Achilles insertion on the calcaneus. No acute fracture or dislocation.IMPRESSION:Degenerative changes within the posterior greater than middle subtalar joints as above. Findings are similar to prior.This document has been electronically signed by Nabor Larson MD on 04/27/2020 6:07 AM Name Value Range Interpretation Code Description Data Giovana rce(s) Supporting Document(s) ID Date Data Source [id number] 04/26/2020 04:20:41 PM T [facility] Name Value Range Interpretation Code Description Data Giovana rce(s) Supporting Document(s) Progress Note [facility] MTNBLs6wNqKHSvUa99/CAOxdXKZcs6QnENmcTYm8JTvlBSRwN6QpGLI5aF6pZTW8GOiIIuFcTzLdOMDs lbm [file] lkTmMcPF2EPb4IUgR3EPP8xTTbMh6TLwZ8CbmEFxSwCN7LDTe= ID Date Data Source [id number] 03/29/2020 12:20:00 [place] [address] PHONE: [phone] FAX: [phone] Name .................. : GAVIOTA Madison Acct Number.................. : [id number] ROOM. ................. : MR Number ................... : [id number] Stay type ............. : CLINIC Discharge Date......... ... : 03/27/20 Admit Date ......... : 03/27/20 Admit Phys .................... : HESTER HARD Date of ....... : 1990 Family Phys ................... : HESTER HARD Phone .................. : [phone] Age ................................ : 29 Film# .................. .:[id number] Sex ................................. : M Unsigned transcriptions are preliminary reports and do not represent a medical or legal document CT ABD & PELV W/O ORAL W/O IV [id number] COMPLETE:03/27/20 14:16 RLB [id number] (REASON FOR ABDOMEN: LOWER ABD PAIN CT OF THE ABDOMEN AND PELVIS WITHOUT CONTRAST: INDICATION: Lower abdominal pain. FINDINGS: The chest space is grossly clear. There is motion artifact in the upper abdomen limiting evaluation. Within these limitations, there is normal noncontrast CT appearance of the liver, pancreas, adrenal glands and kidneys. The patient appears to be status post open cholecystectomy. There is no evidence of biliary duct dilatation. The spleen is enlarged, measuring 14.1 cm craniocaudal with a bulky contour. The patient is status post appendectomy. There are no dilated loops of bowel or excess stool. No evidence of bowel wall thickening is appreciated. The bladder and pelvic organs appear normal. No acute osseous abnormality. No lymphadenopathy. IMPRESSION: Mild splenomegaly up to 14.1 cm. No other acute intra-abdominal process. While performing the above CT examination, radiation dose reduction was accomplished utilizing automated exposure control, adjusting of the mA and kV based on the patient's body size and/or the use of imperative reconstructive techniques. CT dose: 2953.0 mGycm Page 1 of 2 [facility] [address] [place] [address] PHONE: [phone] FAX: [phone] Name .................. : GAVIOTA Madison Acct Number.................. : [id number] ROOM. ................. : MR Number ................... : [id number] Stay type ............. : CLINIC Discharge Date......... ... : 03/27/20 Admit Date ......... : 03/27/20 Admit Phys .................... : [employer] HARD Date of ....... : 1990 Family Phys ................... : [employer] HARD Phone .................. : [phone] Age ................................ : 29 Film# .................. .:[id number] Sex ................................. : M Unsigned transcriptions are preliminary reports and do not represent a medical or legal document CT ABD & PELV W/O ORAL W/O IV [id number] COMPLETE:03/27/20 14:16 RLB [id number] (REASON FOR ABDOMEN: LOWER ABD PAIN Electronically Reviewed and Signed By Yousif Bernardo M.D. , 03/29/20 12:20, MICHELY Transcribe Initials: GUCCI , Transcribe Date: 03/27/20 23:48, Dictation Date: Page 2 of 2 Name Value Range Interpretation Code Description Data Giovana rce(s) Supporting Document(s) ID Date Data Source [id number] 03/22/2020 03:26:00 PM EDT [facility] 1 OrderSheet [facility] Emergency Department [address] [place] [address] Phone #: ext- [phone] 03/22/2020 15:24 Patient: NICK TRUJILLO Sex: M : 1990 Age: 29yWEIGHT:190.5 kg (S) HEIGHT:71 inches (S) BMI:58.6ALLERGIES: Dilantin, Naproxen, Naproxsyn, Tylenol with codeinCHIEF COMPLAINT: abdominal painDIAGNOSIS: Abdominal painLAB ORDERSOrder Description Priority Entered Acknowledged InitialedCBC w Diff STAT 15:41 03/22/2020 15:42 Rc Banda Riccardo Tiffany R.N. M.D.;CMP STAT 15:41 03/22/2020 15:42 Rc Banda Riccardo Tiffany R.N. M.D.;Lipase STAT 15:41 03/22/2020 15:42 Rc Banda Riccardo Tiffany R.N. M.D.;DIAGNOSTIC STUDY ORDERSOrder Description Priority Entered Acknowledged InitialedMEDICATION/IV/DRIP/FLUID ORDERSOrder Description Priority Entered Acknowledged InitialedAtivan IM 1 mg 15:41 03/22/2020 16:03 Solo(HIGH ALERT Cleo Gruber R.N.MEDICATION) Byron;GENERAL ORDERSOrder Description Priority Entered Acknowledged InitialedNPO 15:41 03/22/2020 15:42 Rc Banda Riccardo Tiffany R.N. M.D.;[Electronically signed by Eneidna Banda R.N. (17:25 03/22/2020)][Electronically signed by Cleo Gruber M.D. (17:36 03/22/2020)][Electronically locked by Enedina Banda R.N. (17:25 03/22/2020)] Name Value Range Interpretation Code Description Data Giovana rce(s) Supporting Document(s) ID Date Data Source [id number] 03/22/2020 03:26:00 PM EDT [facility] 1 Medication Reconciliation Report [facility] Emergency Department [address] [place] [address] Phone #: ext- [phone] 03/22/2020 15:24 Patient: NICK TRUJILLO Sex: M : 1990 Age: 29yWeight: 190.5 kgHeight/Length: 71 in.BMI: 58.6ALLERGIES: Dilantin, Naproxen, Naproxsyn, Tylenol with codeinThe patient's Home Medications are listed below:CONTINUE TAKING THE FOLLOWING MEDICATIONS: Albuterol Sulfate Inhalation, prn Incruse Ellipta Inhalation, daily Keppra Oral Lisinopril- hydroCHLOROthiazide Oral (20-25 mg), daily Lopid Oral (600 mg), 2x a day Mobic Oral, daily Perforomist Inhalation (20 mcg/2mL), q4h Pristiq Oral (50 mg), daily Singulair Oral 10 mg, daily Stool Softener Oral (100 mg), daily Sucralfate Oral 1 gm, 4x a day SUMAtriptan Succinate Oral (100 mg), daily Theophylline Oral 400 mg, 2x a day Topamax Oral, daily Zofran ODT Oral, prn 2 Medication Reconciliation Report [facility] Emergency Department [address] [place] [address] Phone #: ext- [phone] 03/22/2020 15:24 Patient: NICK TRUJILLO Sex: M : 1990 Age: 29yThe source(s) of the original Home Medication information:patientThe following Medications were given to the patient in the Emergency Department:Ativan [IM] IM 1 mg, administered: 03/22/2020 4:03:00 PMThe following Medications were prescribed to the patient:None. Name Value Range Interpretation Code Description Data [facility](s) Supporting Document(s) ID Date Data Source [id number] 03/22/2020 03:26:00 PM EDT [place] [address] Medication Administration Record [facility] Emergency Department [address] [place] [address] Phone #: ext- [phone] 03/22/2020 15:24 Patient: NICK TRUJILLO Sex: M : 1990 Age: 29yWeight: 190.5 kgHeight/Length: 71 inBMI: 58.6ALLERGIES: Dilantin, Naproxen, Naproxsyn, Tylenol with codein Date/Time Medication Administered Medication OrderedGiven ATIVAN [IM] (LORAZEPAM) Ativan IM 1 mg (HIGH ALERT16:03 03/22/2020 Dose: 1 mg IM MEDICATION)Enedina Banda R.N. Name Value Range Interpretation Code Description Data Giovana rce(s) Supporting Document(s) ID Date Data Source [id number] 03/22/2020 03:26:00 PM EDT [facility] 1 General Instructions [facility] Emergency Department [address] [place] [address] Phone #: ext- [phone] 03/22/2020 15:24 Patient: NICK TRUJILLO Sex: M : 1990 Age: 29yChronic periumbilical abdominal pain, now resolved. (recurrent).INSTRUCTIONSDrink plenty of fluids. Avoid alcohol and NSAIDS. NSAIDS include aspirin, ibuprofen (Advil) and naproxen(Aleve). Avoid fatty, fried/greasy, lactose-containing (such as milk, cheese and ice cream), salty and spicyfoods. No alcohol. Do not smoke.Warnings: Further evaluation is necessary ([facility]). It is very important to follow upwith a healthcare provider.GENERAL WARNINGS: Return or contact your physician immediately if your condition worsens orchanges unexpectedly, if not improving as expected, or if other problems arise. SPECIFICALLY, return ifyou develop pain in the abdomen, pelvis, testicle, back or shoulder, fever, vomiting, the inability to keepfluids down, blood in vomitus, blood in diarrhea, fainting or lightheadedness.Your Current Medications: Your current home medications have been reviewed.CONTINUE TAKING THE FOLLOWING MEDICATIONS:Albuterol Sulfate Inhalation : prn.Incruse Ellipta Inhalation : daily.Keppra Oral.Lisinopril-hydroCHLOROthiazide Oral : Tablet 20-25 mg, daily.Lopid Oral : Tablet 600 mg, 2x a day.Mobic Oral : daily.Perforomist Inhalation : Nebulization Solution 20 mcg/2mL, q4h.Pristiq Oral : Tablet Extended Release 24 Hour 50 mg, daily.Singulair Oral : 10 mg daily.Stool Softener Oral : Capsule 100 mg, daily.Sucralfate Oral : 1 gm 4x a day.SUMAtriptan Succinate Oral : Tablet 100 mg, daily.Theophylline Oral : 400 mg 2x a day.Topamax Oral : daily.Zofran ODT Oral : prn.Follow-up:Return to the emergency department as needed. Follow up with a surgeon in five days even if well. Callfor an appointment. Reason for referral: evaluation and treatment. Sum martina of care provided to patient viapaper. 2 General Instructions [facility] Emergency Department [address] [place] [address] Phone #: [phone] 03/22/2020 15:24 Patient: NICK TRUJILLO Sex: M : 1990 Age: 29yUnderstanding of the discharge instructions verbalized by patient. Expected course of illness, dischargeinstructions, activity level, diet, follow-up appointment and risks and benefits of treatment reviewed withpatient and understanding verbalized. Agrees to plan of care.Follow-up with: [facility], , , [address] [place] [address], [id number] Follow up in five days even if well. Call for an appointment. Reason for referral: evaluation and treatment.Summary of care provided to patient via paper. ADDITIONAL INFORMATIONUnknown Causes of Abdominal Pain (Male)Based on your visit today, the exact cause of your abdominal pain is not clear. Your exam and testsdon't suggest a dangerous cause at this time. However, the signs of a serious problem may takemore time to appear. Although your evaluation was reassuring today, sometimes early in the courseof many conditions, exam and lab tests can appear normal. Therefore, it is important for you to watchfor any new symptoms or worsening of your condition.It may not be obvious what caused your symptoms. Pay attention to things that do seem to makeyour symptoms worse or better and discuss this with your doctor when you follow up.The evaluation of a bdominal pain in the emergency department may only require an exam by thedoctor or it may include blood, urine or imaging studies, depending on many factors. Sometimesexams and tests can identify a cause but in many cases, a clear cause is not found. Further testing atfollow up visits may help to suggest a clear diagnosis.Home care Rest as much as you can until your next exam. Try to avoid any medicines (unless otherwise directed by your doctor), foods, activities, or other factors that may have contributed to your symptoms. Try to eat foods that you know that you have tolerated well in the past. Certain diets may be recommended for some conditions that cause abdominal pain. However, since the cause of your symptoms may not be clear, discuss your diet more with your healthcare provider or specialist for further recommendations. If you have diarrhea, it may help to avoid dairy (lactose) for the time being. A low fat, low fiber diet can also help. Eating several small meals per day as opposed to 2 or 3 larger meals may help. Avoid dehydration. Make sure to drink plenty of water. Other options include broth, soup, 3 General Instructions [facility] Emergency Department [address] [place] [address] Phone #: ext- [phone] 03/22/2020 15:24 Patient: NICK TRUJILLO Sex: M : 1990 Age: 29y gelatin, sports drinks, or other clear liquids. Watch closely for anything that may make your symptoms worse or better. Pay close attention to symptoms below that may mean your condition is getting worse.Follow-up careFollow up with your healthcare provider if your symptoms are not improving, or as advised. In somecases, you may need more testing.When to seek medical adviceCall your healthcare provider right away if any of these occur: Pain is becoming worse You are unable to take your medicines or can't keep water down due to excessive vomiting Swelling of the abdomen Fever of 100.4F (38C) or higher, or as directed by your healthcare provider Blood in vomit or bowel movements (dark red or black color) Jaundice (yellow color of eyes and skin) New onset of weakness, dizziness or fainting New onset of chest, arm, back, neck or jaw pain [id number] [employer]. [address] [place] [address], [place] [address]. All rights reserved. This information is not intended as asubstitute for professional medical care. Always follow your healthcare professional's instructions. You have been given the following additional information: Unknown Causes of Abdominal Pain (Male)(Electronically signed by Cleo Gruber M.D. 03/22/2020 17:36) Name Value Range Interpretation Code Description Data Giovana rce(s) Supporting Document(s) ID Date Data Source [id number] 03/22/2020 03:26:00 PM EDT [facility] 1 Clinical Report - Nurses [facility] Emergency Department [address] [place] [address] Phone #: ext- [phone] 03/22/2020 15:24 Patient: NICK TRUJILLO Sex: M : 1990 Age: 29yTRIAGEArrived by EMS. Historian: patient.Chief Complaint: ABDOMINAL PAIN.This is a recurrent problem. (three- four weeks ago). ( pt had umbilical hernia surgery recently, c/o pain atumbilical area). No nausea, vomiting, diarrhea, constipation or fever. Last oral intake by patient waslunch today. --15:30 03/22/20 Toyin Osei R.N.Acuity: LEVEL 3. --15:30 03/22/20 Toiyn Osei R.N.Alert. No acute distress. --15:31 03/22/20 Toyin Osei R.N.15:30 03/22/20. BP: 156/79. MAP: 104. HR: 107. RR: 24. O2 saturation: 97%. Temp: 98.5 F. Pain levelnow: 05/06. --15:31 03/22/20 Toyin Osei R.N.Weight: 190.5 kg stated. Height/Length: 71 inches Per Patient. BMI: 58.6. --15:24 03/22/20 Toyin Osei R.N.MedicationsAlbuterol Sulfate Inhalation, as needed. Incruse Ellipta Inhalation, daily. Keppra Oral. Lisinopril-hydroCHLOROthiazide Oral (Tablet 20-25 mg), daily. Lopid Oral (Tablet 600 mg), 2x a day. Mobic Oral, daily. Perforomist Inhalation (Nebulization Solution 20 mcg/2mL), q4h. Pristiq Oral (Tablet Extended Release 24 Hour 50 mg), daily. Singulair Oral 10 mg, daily. Stool Softener Oral (Capsule 100 mg), daily. Sucralfate Oral 1 gm, 4x a day. SUMAtriptan Succinate Oral (Tablet 100 mg), daily. Theophylline Oral 400 mg, 2x a day. Topamax Oral, daily. Zofran ODT Oral, as needed. --15:28 03/22/20 Toyin Osei R.N.AllergiesDilantin.Naproxen.Naproxsyn.Tylenol with codein. --15:28 03/22/20 Toyin Osei R.N. 2 Clinical Report - Nurses [facility] Emergency Department [address] [place] [address] Phone #: ext- [phone] 03/22/2020 15:24 Patient: NICK TRUJILLO Sex: M : 1990 Age: 29y Medication/allergy information source: the patient. --15:30 03/22/20 Toyin Osei R.N. History PAST MEDICAL HX: Immunizations: up-to-date. SOCIAL HX: Never smoker. No alcohol use or drug use. No recent travel. No known contact with a sick individual. The patient was offered HIV testing but declined and hepatitis C testing but declined. The patient has not traveled outside the [place] Infectious disease exposure: No infectious disease exposure. The patient was not exposed to C-diff, MRSA, VRE, CRE or Coronavirus. SELF HARM ASSESSMENT: Self harm assessment was performed. The patient answered "no" to the question(s) "Have you recently felt down, depressed, or hopeless?", "Do you have thoughts of harming or killing yourself?", "Do you have a plan for harming or killing yourself?", "Have you recently had thoughts about harming or killing others?", "Do you have any dangerous items in your possession?", "Have you noticed less interest or pleasure in doing things?", "Are you here because you tried to hurt yourself?" and "Have you ever tried to hurt yourself before today?". ABUSE ASSESSMENT: No report of abuse. NUTRITIONAL RISK ASSESSMENT: The nutritional risk assessment revealed no deficiencies. LEARNING NEEDS ASSESSMENT: The learning needs assessment revealed no barriers. FALL RISK ASSESSMENT: Fall risk assessment completed. Risk factors identified include patient impairment of mobility. FUNCTIONAL ASSESSMENT: Functional assessment performed: uses walker. SKIN INTEGRITY ASSESSMENT: Skin integrity risk assessment completed. No skin integrity risk identified. --15:30 03/22/20 Toyin Osei R.N.PHYSICAL ASSESSMENTTo room via stretcher.GENERAL / NEURO / PSYCH: Alert. Oriented X 4.RESPIRATORY: Breath sounds within normal limits.CVS: Normal sinus rhythm noted.GI / : Abdomen soft. Bowel sounds within normal limits.SKIN: Skin is warm and dry. --15:37 03/22/20 Enedina Banda R.N.NURSING PROGRESS NOTESPatient gowned. Head of bed elevated. Reassurance given. Call light placed in reach. Bed placed inlowest position. Brakes of bed on. Patient ready for evaluation. --15:31 03/22/20 Toyin Osei R.N. 3 Clinical Report - Nurses [facility] Emergency Department [address] [place] [address] Phone #: ext- [phone] 03/22/2020 15:24 Patient: NICK TRUJILLO Sex: M : 1990 Age: 29y 15:59 03/22/20. BP: 141/76. MAP: 97. HR: 98. RR: 20. O2 saturation: 100%. --15:59 03/22/20 Enedina Flynn ED, ER Tech1 16:03 03/22/2020 Ativan (LORazepam) IM 1 mg given. Given in the right deltoid. Allergies verified and confirmed 5 rights. Information reviewed with patient including sedative warning. Verbalizes understanding. --16:03 03/22/20 Enedina Banda R.N.DISPOSITION / DISCHARGE 17:22 03/22/20. BP: 132/71. HR: 102. RR: 20. O2 saturation: 100%. Temp: 98.1 F. Pain level now 0/10. --17:23 03/22/20 Enedina Banda R.N. Departure time: 17:24 03/22/2020. No learning barriers present. Discharge instructions provided and reviewed with the patient. Reviewed warnings. Patient verbalized understanding. Written instructions provided in Albanian. The patient was discharged home. He left ambulatory and via private vehicle. --17:24 03/22/20 Enedina Banda R.N.Locked/Released at 03/22/2020 17:25 by Enedina Banda R.N. Name Value Range Interpretation Code Description Data Giovana rce(s) Supporting Document(s) ID Date Data Source [id number] 03/22/2020 03:26:00 PM EDT [facility] 1 Clinical Report - Physicians/Mid Levels [facility] Emergency Department [address] [place] [address] Phone #: ext- [phone] 03/22/2020 15:24 Patient: NICK TRUJILLO Sex: M : 1990 Age: 29y Time Seen: 15:32 03/22/2020; initial patient contact. Arrived- By ambulance. Historian- patient. Disposition decision: 17:18 03/22/2020.HISTORY OF PRESENT ILLNESS Chief Complaint: ABDOMINAL PAIN and periumbilical pain. This started several weeks ago, more than 8 weeks ago, chronic and is still present. It has been intermittent and waxing/waning. It is described as "pain" and it is described as located in the periumbilical area. At its maximum, severity described as moderate. When seen in the E.D., it was almost gone. Modifying factors- worsened by movement and walking. Relieved by rest. No nausea, loss of appetite, vomiting or diarrhea. (pt is poor historian, pt had umbilical hernia repair several weeks ago at [facility], saw his surgeon last week for f/u and all is well). No recent travel. Similar symptoms previously. Patient has had similar symptoms many times, chronically. Recent medical care: The patient was seen recently at this facility. ( 03-09-20 and 01-27-20 for same, abdominal workups and CTAP's were nml).REVIEW OF SYSTEMSNo constipation, black stools, hematemesis, difficulty with urination or pain with urination. No urinaryfrequency, bloody stools, fever, headache or sore throat. No blurred vision, chest pain, difficulty breathing,cough or joint pain. No skin rash, chills or back pain. The patient has not had weight loss. All othersystems reviewed and are negative.PAST HISTORYSee nurses notes. Problems: Obesity. Seizure Disorder. Renal Colic. Hernia. Hematuria. Gastritis. Gallstone(s). Asthma. Abdominal Pain. Additional Surgeries: Adenoidectomy. Cholecystectomy. 2 Clinical Report - Physicians/Mid Levels [facility] Emergency Department [address] [place] [address] Phone #: ext- [phone] 03/22/2020 15:24 Patient: NICK TRUJILLO Sex: M : 1990 Age: 29y Hernia Repair. Previous Abdominal Surgery. Tonsillectomy. Umbilical Hernia Repair. Medications: Albuterol Sulfate Inhalation, as needed. Incruse Ellipta Inhalation, daily. Keppra Oral. Lisinopril-hydroCHLOROthiazide Oral (Tablet 20-25 mg), daily. Lopid Oral (Tablet 600 mg), 2x a day. Mobic Oral, daily. Perforomist Inhalation (Nebulization Solution 20 mcg/2mL), q4h. Pristiq Oral (Tablet Extended Release 24 Hour 50 mg), daily. Singulair Oral 10 mg, daily. Stool Softener Oral (Capsule 100 mg), daily. Sucralfate Oral 1 gm, 4x a day. SUMAtriptan Succinate Oral (Tablet 100 mg), daily. Theophylline Oral 400 mg, 2x a day. Topamax Oral, daily. Zofran ODT Oral, as needed. Allergies: Dilantin. Naproxen. Naproxsyn. Tylenol with codein.SOCIAL HISTORYNever smoker. No alcohol use or drug use.ADDITIONAL NOTESThe nursing notes have been reviewed with agreement regarding the chief complaint, HPI, ROS, PMH andpatient medications and allergies.PHYSICAL EXAMVital Signs: 03/22/2020 15:30 BP: 156/79. MAP: 104. HR: 107. RR: 24. O2 saturation: 97%. Temp: 98.5F. Pain level now: 05/06. Have been reviewed. Oxygen saturation normal.Appearance: Alert. Oriented X3. No acute distress.Eyes: Pupils equal, round and reactive to light. Eyes normal inspection.ENT: Ears normal. Nose normal. Pharynx normal.Neck: Normal inspection. Neck supple.CVS: Normal heart rate and rhythm. Heart sounds normal. Pulses normal.Respiratory: No respiratory distress. Painless inspiration. Breath sounds normal. Chest nontender.Abdomen: Soft and nontender. Bowel sounds milagros l. No organomegaly. No mass. Femoral pulses 3 Clinical Report - Physicians/Mid Levels [facility] Emergency Department [address] [place] [address] Phone #: ext- [phone] 03/22/2020 15:24 [id number] Sex[facility] M : 1990 Age: 29y equal. Moderately obese. Surgical scar present in the right upper quadrant. Compatible with prior cholecystectomy and hernia repair. Back: Normal inspection. Skin: Skin warm and dry. Normal skin color. No rash. Normal skin turgor. Extremities: Extremities exhibit normal ROM. No lower extremity edema. Neuro: Oriented X 3. No motor deficit. No sensory deficit. Reflexes normal.LABS, X-RAYS, AND EKGLaboratory Tests: Laboratory tests have been ordered, with results reviewed and considered in themedical decision making process. CBC w Diff: (KAVITA: 03/22/2020 16:05) ( MsgRcvd 03/22 16:15) Final results Test Result Flag Units (Reference) CBC W/AUTOMATED DIFF COMPLETE BLOOD COUNT WBC 9.6 10/uL (4.2 - 11.0) RBC 5.41 10/uL (4.50 - 6.30) HEMOGLOBIN 15.9 g/dL (14.0 - 16.0) HEMATOCRIT 48.7 % (41.0 - 51.0) MCV 90.0 fL (80.0 - 94.0) MCH 29.4 pg (27.0 - 34.0) MCHC 32.6 g/dL (31.0 - 36.0) RDW 14.4 % (11.5 - 14.8) PLATELETS 197 10/uL (150 - 450) MPV 9.0 fL (7.4 - 10.4) NEUT 63.6 % (37.0 - 80.0) LYMPH 22.2 L % (25.0 - 40.0) MONO 9.9 H % (3.0 - 8.0) EOS 3.7 % (0.0 - 7.0) BASO 0.3 % (0.0 - 2.0) %IG 0.3 H % (0.0 - 0.0) %NRBC 0.0 % (0.0 - 0.0) #NEUT 6.13 10/uL (2.00 - 6.90) #LYMPH 2.14 10/uL (0.60 - 3.40) #MONO 0.95 H 10/uL (0.00 - 0.90) #EOS 0.36 10/uL (0.00 - 0.70) #BASO 0.03 10/uL (0.00 - 0.20) #IG 0.03 10/uL (0.00 - 0.10) #NRBC 0.00 10/uL (0.00 - 0.00) MANUAL DIFF NOT INDICATED RBC MORPH NOT INDICATED CMP: (KAVITA: 03/22/2020 16:05) ( MsgRcvd 03/22/2020 16:34) Final results Test Result Flag Units (Reference) COMPREHENSIVE METABOLIC PANEL COMPREHENSIVE METABOLIC PANEL SODIUM 140 mEq/L (134 - 153) POTASSIUM 4.2 mEq/L (3.6 - 5.0) CHLORIDE 106 mEq/L (98 - 107) CO2 24 MEQ/L (22 - 30) GLUCOSE 110 MG/DL (65 - 110) BUN 12 MG/DL (7 - 21) CREATININE 0.9 MG/DL (0.7 - 1.5) BUN/CREAT 13 (8 - 27) TOTAL PROTEIN 7.7 G/DL (6.3 - 8.2) 4 Clinical Report - Physicians/Mid Levels [facility] Emergency Department [address] [place] [address] Phone #: ext- [phone] 03/22/2020 15:24 Patient: NICK TRUJILLO Sex: M : 1990 Age: 29y ALBUMIN 4.1 G/DL (3.9 - 5.0) GLOBULIN 3.6 H GM/DL (2.4 - 3.2) A/G RATIO 1.1 (0.8 - 2.0) CALCIUM 9.0 MG/DL (8.4 - 10.2) TOTAL BILI <0.7 MG/DL (0.2 - 1.3) ALKALINE PHOS 83 U/L (38 - 126) SGOT/AST 27 U/L (5 - 40) SGPT/ALT 37 U/L (7 - 56) ANION GAP 10.0 mmol/L (8.0 - 16.0) AGE 29 yrs NON-AA GFR >60 mL/min AFR AMER GFR >60 mL/min Male GFR Interprentation 20-49 yrs >60 mL/min Normal 50-59 yrs >56 mL/min Normal 60-69 yrs >49 mL/min Normal 70-79yrs >42 mL/min Normal 80 and above >35 mL/min Normal Female GFR Interpretation 20-39 yrs >60 mL/min Normal 40-49 yrs >58 mL/min Normal 50-59 yrs >51 mL/min Normal 60-69 yrs >45 mL/min Normal 70-79 yrs >39 mL/min Normal 80 and above >32 mL/min Normal Lipase: (KAVITA: 03/22/2020 16:05) ( MsgRcvd 03/22/2020 16:34) Final results Test Result Flag Units (Reference) LIPASE 34 U/L (13 - 60).PROGRESS AND PROCEDURESCourse of Care: 15:47 03/22/20. pt has had this problem for several weeks and had repair of periumbilicalhernia weeks ago, saw his surgeon last week, came to our ER on 03-09-20 and 01-27-20 w nml workups andnml CTAP's on each visit; pt has nml exam here today w/o any findings; will repeat blood workup and thenprobably d/c home w referral to our surgical clinic 17:17 03/22/20. workup all in and reviewed and nml; pt requested to be referred to our surgeon here at [facility] for his chronic, recurrent abdominal pain, we will do that; d/c instructions given. Patient counseled in person regarding the patient's stable condition, test results, diagnosis and need for follow-up. Patient agrees with plan of care. Disposition: Condition: good and stable. Discharge decision based on the following: patient's condition is stable; patient's condition is improved; patient is ambulatory; patient is active; patient drinking fluids; patient's pain is controlled; patient's exam is improved; no abnormal test results; improving condition on multiple repeat evaluations; social support is good; transportation is available; follow-up is available; clinical impression is consistent with outpatient treatment.CLINICAL IMPRESSION Chronic periumbilical abdominal pain, now resolved. (recurrent). 5 Clinical Report - Physicians/Mid Levels [facility] Emergency Department [address] [place] [address] Phone #: ext- [phone] 03/22/2020 15:24 Patient: NICK TRUJILLO Sex: M : 1990 Age: 29yINSTRUCTIONS Drink plenty of fluids. Avoid alcohol and NSAIDS. NSAIDS include aspirin, ibuprofen (Advil) and naproxen (Aleve). Avoid fatty, fried/greasy, lactose-containing (such as milk, cheese and ice cream), salty and spicy foods. No alcohol. Do not smoke. Warnings: Further evaluation is necessary ([facility]). It is very important to follow up with a healthcare provider. GENERAL WARNINGS: Return or contact your physician immediately if your condition worsens or changes unexpectedly, if not improving as expected, or if other problems arise. SPECIFICALLY, return if you develop pain in the abdomen, pelvis, testicle, back or shoulder, fever, vomiting, the inability to keep fluids down, blood in vomitus, blood in diarrhea, fainting or lightheadedness. Your Current Medications: Your current home medications have been reviewed. CONTINUE TAKING THE FOLLOWING MEDICATIONS: Albuterol Sulfate Inhalation : prn. Incruse Ellipta Inhalation : daily. Keppra Oral. Lisinopril-hydroCHLOROthiazide Oral : Tablet 20-25 mg, daily. Lopid Oral : Tablet 600 mg, 2x a day. Mobic Oral : daily. Perforomist Inhalation : Nebulization Solution 20 mcg/2mL, q4h. Pristiq Oral : Tablet Extended Release 24 Hour 50 mg, daily. Singulair Oral : 10 mg daily. Stool Softener Oral : Capsule 100 mg, daily. Sucralfate Oral : 1 gm 4x a day. SUMAtriptan Succinate Oral : Tablet 100 mg, daily. Theophylline Oral : 400 mg 2x a day. Topamax Oral : daily. Zofran ODT Oral : prn. Follow-up: Return to the emergency department as needed. Follow up with a surgeon in five days even if well. Call for an appointment. Reason for referral: evaluation and treatment. Summary of care provided to patient via paper. Understanding of the discharge instructions verbalized by patient. Expected course of illness, discharge instructions, activity level, diet, follow-up appointment and risks and benefits of treatment reviewed with patient and understanding verbalized. Agrees to plan of care. Follow-up with: [facility], , , [address] [place] [address], [facility] Follow up in five days even if well. Call for an appointment. Reason for referral: evaluation and treatment. Summary of care provided to patient via paper. 6 Clinical Report - Physicians/Mid Levels [facility] Emergency Department [address] [place] [address] Phone #: ext- [phone] 03/22/2020 15:24 Patient: NICK TRUJILLO Sex: M : 1990 Age: 29y(Electronically signed by Cleo Gruber M.D. 03/22/2020 17:36) Name Value Range Interpretation Code Description Data Giovana rce(s) Supporting Document(s) ID Date Data Source [id number] 03/22/2020 04:34:00 PM EDT [facility] Name Value Range Interpretation Code Description Data Giovana rce(s) Supporting Document(s) Lipase [Enzymatic activity/volume] in Serum or Plasma 34 U/L 13 - 60 [facility] ID Date Data Source [id number] 03/22/2020 04:34:00 PM EDT [facility] Name Value Range Interpretation Code Description Data Giovana rce(s) Supporting Document(s) COMPREHENSIVE METABOLIC PANEL [facility] COMPREHENSIVE METABOLIC PANEL Sodium [Moles/volume] in Serum or Plasma 140 mEq/L 134 - 153 [facility] Potassium [Moles/volume] in Serum or Plasma 4.2 mEq/L 3.6 - 5.0 [facility] Chloride [Moles/volume] in Serum or Plasma 106 mEq/L 98 - 107 [facility] Carbon dioxide, total [Moles/volume] in Serum or Plasma 24 MEQ/L 22 - 30 [facility] Glucose [Mass/volume] in Serum or Plasma 110 MG/DL 65 - 110 [facility] BUN 12 MG/DL 7 - 21 [facility] Creatinine [Mass/volume] in Serum or Plasma 0.9 MG/DL 0.7 - 1.5 [facility] BUN/CREAT 13 8 - 27 [facility] Protein [Mass/volume] in Serum or Plasma 7.7 G/DL 6.3 - 8.2 [facility] Albumin [Mass/volume] in Serum or Plasma 4.1 G/DL 3.9 - 5.0 [facility] Globulin [Mass/volume] in Serum by calculation 3.6 GM/DL 2.4 - 3.2 H [facility] A/G RATIO 1.1 0.8 - 2.0 [facility] Calcium [Mass/volume] in Serum or Plasma 9.0 MG/DL 8.4 - 10.2 [facility] Bilirubin.total [Mass/volume] in Serum or Plasma <0.7 MG/DL 0.2 - 1.3 [facility] Alkaline phosphatase [Enzymatic activity/volume] in Serum or Plasma 83 U/L 38 - 126 [facility] Aspartate aminotransferase [Enzymatic activity/volume] in Serum or Plasma 27 U/L 5 - 40 [facility] Alanine aminotransferase [Enzymatic activity/volume] in Seru m or Plasma 37 U/L 7 - 56 [facility] Anion gap 3 in Serum or Plasma 10.0 mmol/L 8.0 - 16.0 [facility] AGE 29 yrs [facility] al NON-AA GFR >60 mL/min [facility] ital AFR AMER GFR >60 mL/min [facility] spital Male GFR In terprentation 20-49 yrs >60 mL/min Normal 50-59 yrs >56 mL/min Normal 60-69 yrs >49 mL/min Normal 70-79yrs >42 mL/min Normal 80 and above >35 mL/min Normal Female GFR Interpretation 20-39 yrs >60 mL/min Normal 40-49 yrs >58 mL/min Normal 50-59 yrs >51 mL/min Normal 60-69 yrs >45 mL/min Normal 70-79 yrs >39 mL/min Normal 80 and above >32 mL/min Normal ID Date Data Source [id number] 03/22/2020 04:15:00 PM EDT [facility] Name Value Range Interpretation Code Description Data Giovana rce(s) Supporting Document(s) CBC W/AUTOMATED DIFF [facility] COMPLETE BLOOD COUNT Leukocytes [#/volume] in Blood by Automated count 9.6 10^3/uL 4.2 - 1 1.0 [facility] Erythrocytes [#/volume] in Blood by Automated count 5.41 10^6/uL 4. 50 - 6.30 [facility] Hemoglobin [Mass/volume] in Blood 15.9 g/dL 14.0 - 16.0 [facility] Hematocrit [Volume Fraction] of Blood by Automated count 48.7 % 4 1.0 - 51.0 [facility] Erythrocyte mean corpuscular volume [Entitic volume] by Auto mated count 90.0 fL 80.0 - 94.0 [facility] Erythrocyte mean corpuscular hemoglobin [Entitic mass] by Automated count 29.4 pg 27.0 - 34.0 [facility] Erythrocyte mean corpuscular hemoglobin concentration [Mass/volume] by Automated count 32.6 g/dL 31.0 - 36.0 [facility] Erythrocyte distribution width [Ratio] by Automated count 14.4 % 11.5 - 14.8 [facility] Platelets [#/volume] in Blood by Automated count 197 10^3/uL 150 - 45 0 [facility] Platelet mean volume [Entitic volume] in Blood by Automated count 9.0 fL 7.4 - 10.4 [facility] Neutrophils/100 leukocytes in Blood by Automated count 63.6 % 37. 0 - 80.0 [facility] Lymphocytes/100 leukocytes in Blood by Manual count 22.2 % 25.0 - 40.0 L [facility] Monocytes/100 leukocytes in Blood by Automated count 9.9 % 3.0 - 8.0 H [facility] Eosinophils/100 leukocytes in Blood by Automated count 3.7 % 0.0 - 7.0 [facility] Basophils/100 leukocytes in Blood by Automated count 0.3 % 0.0 - 2.0 [facility] Center %IG 0.3 % 0.0 - 0.0 [facility] al %NRBC 0.0 % 0.0 - 0.0 [facility] al Neutrophils [#/volume] in Blood by Automated count 6.13 10^3/uL 2.00 - 6.90 [facility] Lymphocytes [#/volume] in Blood by Automated count 2.14 10^3/uL 0.60 - 3.40 [facility] Monocytes [#/volume] in Blood by Automated count 0.95 10^3/uL 0.00 - 0.90 [facility] Eosinophils [#/volume] in Blood by Automated count 0.36 10^3/uL 0.00 - 0.70 [facility] Basophils [#/volume] in Blood by Automated count 0.03 10^3/uL 0.00 - 0.20 [facility] #IG 0.03 10^3/uL 0.00 - 0.10 [facility] #NRBC 0.00 10^3/uL 0.00 - 0.00 [facility] MANUAL DIFF NOT INDICATED [facility] RBC MORPH NOT INDICATED [facility] ID Date Data Source [id number] 03/13/2020 02:06:00 PM EDT [facility] [address] [place] [address] PHONE: [phone] FAX: [phone] Name .................. : GAVIOTA ROMERO Los Acct Number.................. : [id number] ROOM. ................. : TR-08 Number ................... : [id number] Stay type ............. : E/R Discharge Date......... ... : Admit Date ......... : 03/09/20 Admit Phys .................... : TALIA Madison Date of ....... : 1990 Family Phys ................... : HESTER HARD Phone .................. : [phone] Age ................................ : 29 Film# .................. .:[id number] Sex ................................. : M Unsigned transcriptions are preliminary reports and do not represent a medical or legal document CT ABD & PELV W/ORAL ONLY [id number] COMPLETE:03/09/20 21:11 [id number] Reason(s): Abdominal Pain CT OF THE ABDOMEN AND PELVIS WITH CONTRAST: INDICATION: Abdominal pain. FINDINGS/IMPRESSION: The chest space is grossly clear. There is normal contrast- enhanced CT appearance of the liver, spleen, pancreas, adrenal glands and kidneys. The patient appears to be status post open cholecystectomy. There is no evidence of biliary duct dilatation. The visualized bowel is normal in caliber. Postoperative changes are noted in the right lower quadrant. No bowel wall thickening. The bladder and pelvis organs appear normal. No acute osseous abnormality. No lymphadenopathy. There is a 2.1 x 2.5 cm umbilical hernia with increased density. I am unsure if this is a recent postoperative appearance versus fluid in a previous laparoscopic port tract. While performing the above CT examination, radiation dose reduction was accomplished utilizing automated exposure control, adjusting of the mA and kV based on the patient's body size and/or the use of imperative reconstructive techniques. CT dose: 2921.5 mGycm Contrast agent in mL: 75 Isovue 370 Page 1 of 2 [facility] [address] [place] [address] PHONE: [phone] FAX: [phone] Name .................. : GAVIOTA Madison Acct Number.................. : [id number] ROOM. ................. : TR-08 MR Number ................... : [id number] Stay type ............. : E/R Discharge Date......... ... : Admit Date ......... : 03/09/20 Admit Phys .................... : TALIA Madison Date of ....... : 1990 Family Phys ................... : HESTER HARD Phone .................. : [phone] Age ................................ : 29 Film# .................. .:[id number] Sex ................................. : M Unsigned transcriptions are preliminary reports and do not represent a medical or legal document CT ABD & PELV W/ORAL ONLY [id number] COMPLETE:03/09/20 21:11 KJE [id number] Reason(s): Abdominal Pain Method of administration: Intravenous Electronically Reviewed and Signed By Yousif Bernardo M.D. , 03/13/20 14:06, [place] Transcribe Initials: GUCCI , Transcribe Date: 03/09/20 23:30, Dictation Date: Copy for: EMERGENCY DEPT via modem Copy for: 710 MED REC DISCHARGED Page 2 of 2 Name Value Range Interpretation Code Description Data Giovana rce(s) Supporting Document(s) ID Date Data Source [id number] 03/09/2020 05:46:00 PM EDT [facility] 1 OrderSheet [facility] Emergency Department [address] [place] [address] Phone #: ext- [phone] 03/09/2020 17:13 Patient: NICK TRUJILLO Sex: M : 1990 Age: 29yWEIGHT:179.1 kg HEIGHT:71 inches BMI:55.1ALLERGIES: Dilantin, Naproxen, Naproxsyn, Tylenol with codein, Tylenol with codieneCHIEF COMPLAINT: abdominal painDIAGNOSIS: Abdominal pain, Gastritis, Abdominal painLAB ORDERSOrder Description Priority Entered Acknowledged InitialedCMP STAT 18:54 03/09/2020 18:55 Hitesh Almaraz RN, M.D.;Lipase STAT 18:54 03/09/2020 18:55 Hitesh Almaraz RN, M.D.;Lactic Acid STAT 18:54 03/09/2020 18:55 Hitesh Almaraz RN, M.D.;CBC w Diff STAT 18:54 03/09/2020 18:55 Hitesh Almaraz RN, M.D.;Urinalysis (Clean STAT 18:54 03/09/2020 19:13 Patt Solorzano Lingappa RN M.D.;DIAGNOSTIC STUDY ORDERSOrder Description Priority Entered Acknowledged InitialedCT ABD PEL STAT 18:55 03/09/2020 Ack'd: 20:16 Bean Peace RNW/Oral/IV Contrast Hitesh Melgar Initialed: 20:50 Hitesh Melgar M.D.(Oxygen?(No)) Byron; Cancelled: Physician Order 20:50(IV?(Yes)) Hitesh Melgar M.D. Reason for Study: post opCT Abd Pelv W/Oral STAT 20:50 03/09/2020 21:14 StevenContrast Only Hitesh Melgar RN(Oxygen?(No)) Byron;(IV?(No)) Reason for Study: Abdominal PainMEDICATION/IV/DRIP/FLUID ORDERSOrder Description Priority Entered Acknowledged Initialed 2 OrderSheet [facility] Emergency Department [address] [place] [address] Phone #: ext- [phone] 03/09/2020 17:13 Patient: NICK TRUJILLO Sex: M : 1990 Age: 29yNS IV : Bolus 1000 STAT 18:54 03/09/2020 Cancelled: Physician Order 21:14 StevenmL, then 150 mL/hr Hitesh Melgar RN(NOW x1) NayDShay;Protonix IVPB 40 18:54 03/09/2020 Cancelled: Physician Order 21:14 Stevenmg with Dextrose Hitesh Melgar RN100 ml spike bag Byron;(D5W)GENERAL ORDERSOrder Description Priority Entered Acknowledged Initialed[Electronically signed by Bean Peace RN (00:45 03/10/2020)][Electronically signed by Hitesh Melgar M.D. (03:45 03/10/2020)][Electronically locked by Bean Peace RN (00:45 03/10/2020)] Name Value Range Interpretation Code Description Data Giovana rce(s) Supporting Document(s) ID Date Data Source [id number] 03/09/2020 05:46:00 PM EDT [facility] 1 Medication Reconciliation Report [facility] Emergency Department [address] [place] [address] Phone #: ext- [phone] 03/09/2020 17:13 Patient: NICK TRUJILLO Sex: M : 1990 Age: 29yWeight: 179.1 kgHeight/Length: 71 in.BMI: 55.1ALLERGIES: Dilantin, Naproxen, Naproxsyn, Tylenol with codein, Tylenol with codieneThe patient's Home Medications are listed below:THE FOLLOWING MEDICATIONS NEED TO BE RECONCILED: Albuterol Sulfate Inhalation, prn Incruse Ellipta Inhalation, daily Keppra Oral Lisinopril-hydroCHLOROthiazide Oral (20-25 mg), daily Lopid Oral (600 mg), 2x a day Mobic Oral, daily Perforomist Inhalation (20 mcg/2mL), q4h Pristiq Oral (50 mg), daily Singulair Oral 10 mg, daily Stool Softener Oral (100 mg), daily Sucralfate Oral 1 gm, 4x a day SUMAtriptan Succinate Oral (100 mg), daily Theophylline Oral 400 mg, 2x a day Topamax Oral, daily Zofran ODT Oral, prn 2 Medication Reconciliation Report [facility] Emergency Department [address] [place] [address] Phone #: ext- [phone] 03/09/2020 17:13 Patient: NICK TRUJILLO Sex: M : 1990 Age: 29yThe source(s) of the original Home Medication information:Not obtained.The following Medications were given to the patient in the Emergency Department:None.The following Medications were prescribed to the patient:None. Name Value Range Interpretation Code Description Data Giovana e(s) Supporting Document(s) ID Date Data Source [id number] 03/09/2020 05:46:00 PM EDT [facility] 1 Medication Administration Record [facility] Emergency Department [address] [place] [address] Phone #: ext- [phone] 03/09/2020 17:13 Patient: NICK TRUJILLO Sex: M : 1990 Age: 29yWeight: 179.1 kgHeight/Length: 71 inBMI: 55.1ALLERGIES: Naproxen, Dilantin, Tylenol with codiene, Naproxsyn, Tylenol with codeinDate/Time Medication Administered Medication Ordered Name Value Range Interpretation Code Description Data Giovana e(s) Supporting Document(s) ID Date Data Source [id number] 03/09/2020 05:46:00 PM EDT [facility] 1 General Instructions [facility] Emergency Department [address] [place] [address] Phone #: ext- [phone] 03/09/2020 17:13 Patient: NICK TRUJILLO Sex: M : 1990 Age: 29yChronic abdominal pain.Chronic abdominal pain of unknown cause.Chronic gastritispost op pain.INSTRUCTIONSNo strenuous activity. Do not work.Drink plenty of fluids. No alcohol.(call your surgeon in am for an appointment for receck and further care.).Warnings: Further evaluation is necessary.SEDATIVE MEDICATION: You were given sedative medication during your visit. Do not drive or operatedangerous machinery.GENERAL WARNINGS: Return or contact your physician immediately if your condition worsens orchanges unexpectedly, if not improving as expected, or if other problems arise.Follow-up:Follow up with your healthcare provider even if well. Call for an appointment. Reason for referral:evaluation and treatment. Summary of care provided to patient, family and follow-up provider via paper.Follow up with a surgeon even if well. Call for an appointment. Reason for referral: evaluation andtreatment. Summary of care provided to patient and follow-up provider via paper.Understanding of the discharge instructions verbalized. ADDITIONAL INFORMATIONUnknown Causes of Abdominal Pain (Male)Based on your visit today, the exact cause of your abdominal pain is not clear. Your exam and testsdon't suggest a dangerous cause at this time. However, the signs of a serious problem may takemore time to appear. Although your evaluation was reassuring today, sometimes early in the courseof many conditions, exam and lab tests can appear normal. Therefore, it is important for you to watchfor any new symptoms or worsening of your condition.It may not be obvious what caused your symptoms. Pay attention to things that do seem to makeyour symptoms worse or better and discuss this with your doctor when you follow up. 2 General Instructions [facility] Emergency Department [address] [place] [address] Phone #: ext- [phone] 03/09/2020 17:13 Patient: NICK TRUJILLO Sex: M : 1990 Age: 29yThe evaluation of abdominal pain in the emergency department may only require an exam by thedoctor or it may include blood, urine or imaging studies, depending on many factors. Sometimesexams and tests can identify a cause but in many cases, a clear cause is not found. Further testing atfollow up visits may help to suggest a clear diagnosis.Home care Rest as much as you can until your next exam. Try to avoid any medicines (unless otherwise directed by your doctor), foods, activities, or other factors that may have contributed to your symptoms. Try to eat foods that you know that you have tolerated well in the past. Certain diets may be recommended for some conditions that cause abdominal pain. However, since the cause of your symptoms may not be clear, discuss your diet more with your healthcare provider or specialist for f urther recommendations. If you have diarrhea, it may help to avoid dairy (lactose) for the time being. A low fat, low fiber diet can also help. Eating several small meals per day as opposed to 2 or 3 larger meals may help. Avoid dehydration. Make sure to drink plenty of water. Other options include broth, soup, gelatin, sports drinks, or other clear liquids. Watch closely for anything that may make your symptoms worse or better. Pay close attention to symptoms below that may mean your condition is getting worse.Follow-up careFollow up with your healthcare provider if your symptoms are not improving, or as advised. In somecases, you may need more testing.When to seek medical adviceCall your healthcare provider right away if any of these occur: Pain is becoming worse You are unable to take your medicines or can't keep water down due to excessive vomiting Swelling of the abdomen Fever of 100.4F (38C) or higher, or as directed by your healthcare provider Blood in vomit or bowel movements (dark red or black color) 3 General Instructions [facility] Emergency Department [address] [place] [address] Phone #: ext- [phone] 03/09/2020 17:13 Patient: NICK TRUJILLO Sex: M : 1990 Age: 29y Jaundice (yellow color of eyes and skin) New onset of weakness, dizziness or fainting New onset of chest, arm, back, neck or jaw pain 5710-8532 [employer]. [address] [place] [address]. All rights reserved. This information is not intended as asubstitute for professional medical care. Always follow your healthcare professional's instructions.Gastritis (Adult)Gastritis is inflammation and irritation of the stomach lining. You can have it for a short time (acute) ky long lasting (chronic). Infection with bacteria called H pylori most often causes gastritis. More thana third of people in the have these bacteria in their bodies. In many cases, H pylori causes noproblems or symptoms. In some people, though, the infection irritates the stomach lining and causesgastritis. H. pylori may be diagnosed through blood, stool, or breath tests, we well as through biopsyduring an endoscopy. Other causes of stomach irritation include drinking alcohol, smoking or chewingtobacco, or taking pain-relieving medicines called NSAIDs (such as aspirin or ibuprofen). Certaindrugs (such as cocaine) and immune conditions can also cause gastritis.Symptoms of gastritis can include: Belly pain or bloating Feeling full quickly 4 General Instructions [facility] Emergency Department [address] [place] [address] Phone #: ext- [phone] 03/09/2020 17:13 Patient: NICK TRUJILLO Sex: M : 1990 Age: 29y Loss of appetite Nausea or vomiting Vomiting blood or having black stools Feeling more tired than usualAn inflamed and irritated stomach lining is more likely to develop a sore called an ulcer. To helpprevent this, gastritis should be treated.Home careIf needed, our healthcare provider may prescribe medicines. If you have H pylori infection, treating itwill likely relieve your symptoms. Other changes can help reduce stomach irritation and help it heal. If you have been prescribed medicines for H pylori infection, take them as directed. Take all of the medicine until it is finished or your healthcare provider tells you to stop, even if you feel better. Your healthcare provider may advise you not to take NSAIDs. If you take daily aspirin for your heart or other medical reasons, do not stop without talking to your healthcare provider first. Don't drink alcohol. Stop smoking. Smoking can irritate the stomach and delay healing. As much as possible, stay away from second hand smoke.Follow-up careFollow up with your healthcare provider, or as advised by our staff. You may need testing to check forinflammation or an ulcer.When to seek medical adviceCall your healthcare provider for any of the following: Stomach pain that gets worse or moves to the lower right belly (appendix area) Chest pain that appears or gets worse, or spreads to the back, neck, shoulder, or arm Frequent vomiting (can't keep down liquids) Blood in the stool or vomit (red or black in color) Feeling weak or dizzy Shortness of breath 5 General Instructions [facility] Emergency Department [address] [place] [address] Phone #: [phone] dxh- [phone] 03/09/2020 17:13 Patient: NICK TRUJILLO Sex: M : 1990 Age: 29y Unexplained weight loss Fever of 100.4F (38C) or higher, or as directed by your healthcare provider [id number] [employer]. [address] [place] [address]. All rights reserved. This information is not intended as asubstitute for professional medical care. Always follow your healthcare professional's instructions. You have been given the following additional information: Unknown Causes of Abdominal Pain (Male) Gastritis (Adult) No strenuous activity. Do not work.(Electronically signed by Hitesh Melgar M.D. 03/10/2020 03:45) Name Value Range Interpretation Code Description Data Giovana rce(s) Supporting Document(s) ID Date Data Source [id number] 03/09/2020 05:46:00 PM EDT [facility] 1 Clinical Report - Nurses [facility] Emergency Department [address] [place] [address] Phone #: ext- [phone] 03/09/2020 17:13 Patient: NICK TRUJILLO Sex: M : 1990 Age: 29yTRIAGEArrived by EMS. Historian: patient. ( PT HAD HERNIA SURGERY 4 WEEKS AGO AND HE SAYS MAGNOLIA RIVERA. NO DRAINAGE. PT HAS APPT NEXT [place]GEON-DR[facility] [place]Triage time: 17:14 03/09/2020. Acuity: LEVEL 3.Chief Complaint: ABDOMINAL PAIN.Alert.The patient has had abdominal pain.Treatment RESPIRATORY THERAPIST:None. --17:18 03/09/20 Enedina Banda R.N.17:14 03/09/20. BP: 153/90. HR: 106. RR: 20. O2 saturation: 96%. Temp: 98.8 F. Pain level now 10/10.--17:18 03/09/20 Enedina Banda R.N.Weight: 179.1 kg. Height/Length: 71 inches. BMI: 55.1. --17:14 03/09/20 Enedina Banda R.N.MedicationsAlbuterol Sulfate Inhalation, as needed. Incruse Ellipta Inhalation, daily. Keppra Oral. Lisinopril-hydroCHLOROthiazide Oral (Tablet 20-25 mg), daily. Lopid Oral (Tablet 600 mg), 2x a day. Mobic Oral, daily. Perforomist Inhalation (Nebulization Solution 20 mcg/2mL), q4h. Pristiq Oral (Tablet Extended Release 24 Hour 50 mg), daily. Singulair Oral 10 mg, daily. Stool Softener Oral (Capsule 100 mg), daily. Sucralfate Oral 1 gm, 4x a day. SUMAtriptan Succinate Oral (Tablet 100 mg), dwaine ly. Theophylline Oral 400 mg, 2x a day. Topamax Oral, daily. --18:30 03/09/20 Phillip Drummond RN Zofran ODT Oral, as needed. --18:30 03/09/20 Phillip Drummond RN.AllergiesTylenol with codiene. --17:17 03/09/20 Enedina Banda R.N.Dilantin. --17:18 03/09/20 Enedina Banda R.N.Naproxen. --17:18 03/09/20 Enedina Banda R.N.Naproxsyn. 2 Clinical Report - Nurses [facility] Emergency Department [address] [place] [address] Phone #: ext- [phone] 03/09/2020 17:13 Patient: NICK TRUJILLO Sex: M : 1990 Age: 29y Tylenol with codein. --18:30 03/09/20 Phillip Drummond RN. History SURGERY HX: Adenoidectomy. Umbilical hernia repair. Tonsillectomy. SOCIAL HX: Never smoker. No alcohol use or drug use. No recent travel. No known contact with a sick individual. The patient was offered HIV testing but declined. The patient has not traveled outside the [place] Infectious disease exposure: No infectious disease exposure. The patient was not exposed to Coronavirus. Patient is not a known carrier of tuberculosis, hepatitis, HIV, MRSA or VRE. Patient is not a known carrier of CRE. SELF HARM ASSESSMENT: Self harm assessment was performed. The patient answered "no" to the question(s) "Have you recently felt down, depressed, or hopeless?", "Do you have thoughts of harming or killing yourself?", "Do you have a plan for harming or killing yourself?", "Have you recently had thoughts about harming or killing others?", "Do you have any dangerous items in your possession?", "Have you noticed less interest or pleasure in doing things?", "Are you here because you tried to hurt yourself?" and "Have you ever tried to hurt yourself before today?". ABUSE ASSESSMENT: Abuse assessment. Abuse denied. No suspicion of abuse. No report of abuse. FALL RISK ASSESSMENT: Fall risk assessment completed. No risk factors identified. --17:18 03/09/20 Enedina Banda R.N. Interventions Identification band on patient. To treatment room. --17:18 03/09/20 Enedina Banda R.N.PHYSICAL [id number] 03/09/20. To room via stretcher.GENERAL / NEURO / PSYCH: Alert. Oriented X 4.RESPIRATORY: Respirations not labored. Breath sounds within normal limits.CVS: Capillary refill less than 2 seconds.GI / : Abdomen soft. Abdominal tenderness in the periumbilical area. Bowel sounds within normallimits.SKIN: Skin is warm and dry. --18:29 03/09/20 Phillip Drummond RN.NURSING PROGRESS NOTESThree patient identifiers checked. --17:19 03/09/20 Enedina Banda R.N. 18:27 03/09/20. BP: 122/71. MAP: 88. HR: 103. RR: 16. O2 saturation: 97%. --18:27 03/09/20 [facility][note 3] TechEnedina Tech1 18:30 03/09/20. Patient gowned. Head of bed elevated 75 degrees. Two patient identifiers checked. Call light placed in reach. Bed placed in lowest position. Brakes of bed on. Patient ready for evaluation- chart flagged. --18:30 03/09/20 Phillip Drummond RN 3 Clinical Report - Nurses [facility] Emergency Department [address] [place] [address] Phone #: ext- [phone] 03/09/2020 17:13 Patient: NICK TRUJILLO Sex: M : 1990 Age: 29y 19:16 03/09/2020 Two (2) unsuccessful IV access attempts including the right antecubital space. --19:26 03/09/20 Phillip Drummond RN Checked patient name and birthdate: patient confirmed. Blood samples drawn by tech. (1909). Checked patient name and birthdate: patient confirmed. Clean catch urine collected; sample sent to lab for urinalysis. Specimen labeled in the presence of the patient (1909). --19:27 03/09/20 Phillip Drummond RN Reassessment acuity: LEVEL 3. The patient is calm. GI / : Abdomen soft. Abdominal tenderness in the lower abdomen. Bowel sounds within normal limits. SKIN: Skin is warm and dry. Skin color within normal limits. --23:54 03/09/20 Bean Peace RN 20:10 03/09/20. BP: 132/78 (large adult cuff) taken on the right arm, via an automated monitor, while lying. MAP: 96. HR: 88 (regular, normal rate and strong). RR: 18 (regular, unlabored and normal). O2 saturation: 97% on room air. Temp: 98.2 F (oral). Pain level now: 11/04. --23:54 03/09/20 Bean Peace RN Reassessment acuity: LEVEL 3. The patient is calm. GI / : Abdomen soft. Abdominal tenderness in the lower abdomen. Bowel sounds within normal limits. SKIN: Skin is warm and dry. Skin color within normal limits. --23:56 03/09/20 Bean Peace RN 21:15 03/09/20. BP: 133/87 (large adult cuff) taken on the right arm, via an automated monitor, while lying. MAP: 102. HR: 86 (regular and normal rate). RR: 18 (regular, unlabored and normal). O2 saturation: 96% on room air. Temp: 98.4 F (oral). Pain level now: 10/04. --23:56 03/09/20 Bean Peace RN.DISPOSITION / DISCHARGE [place] Coma Scale: 15- eyes open- spontaneous (4); best verbal response- oriented (5); best motor response- obeys commands (6). Condition at departure: improved. No learning barriers present. Reviewed referral to family practice and a modeling and simulation analyst for followup. Reviewed need for increased fluid intake. Activity restrictions (rest) reviewed. Patient verbalized understanding. Written instructions provided in Albanian. The patient was discharged home. He left ambul atory and via (ambulatory). ( Refused medicaid cab didn't want to wait 2 hours for cab). --00:44 03/10/20 Bean Peace RN 00:42 03/10/20. BP: 132/84 (large adult cuff) taken on the right arm, via an automated monitor, while lying. MAP: 100. HR: 88 (regular, normal rate and strong). RR: 18 (regular, unlabored and normal). O2 saturation: 96% on room air. Temp: 98.2 F. Pain level now: 10/04. --00:44 03/10/20 Bean Peace RN Departure time: 00:44 03/10/2020. --00:44 03/10/20 Bean Peace RN. 4 Clinical Report - Nurses [facility] Emergency Department [address] [place] [address] Phone #: [phone] idf- [phone] 03/09/2020 17:13 [id number] Sex: M : 1990 Age: 29yLocked/Released at 03/10/2020 00:45 by Bean Peace RN Name Value Range Interpretation Code Description Data Giovana rce(s) Supporting Document(s) ID Date Data Source [id number] 03/09/2020 05:46:00 PM EDT [facility] 1 Clinical Report - Physicians/Mid Levels [facility] Emergency Department [address] [place] [address] Phone #: ext- [phone] 03/09/2020 17:13 Patient: NICK TRUJILLO Sex: M : 1990 Age: 29y Time Seen: 18:33 03/09/2020. Historian- patient. Disposition decision: 00:11 03/10/2020.HISTORY OF PRESENT ILLNESS Chief Complaint: ABDOMINAL PAIN. (29 year old morbuidly obese patient with abdominal pain past few weeks. had a cholecystectomy a nd later umbilical hernia repair done also at [facility]. has an appointment with f/u with surgeon this week feels pain is not going away, wants pain meds, no fever, novomiting, no diarrhea. no rectal bleed. no cough.). Is still present. (4 weeks). It is described as "pain" and diffuse and it is described as located in the periumbilical area. At its maximum, severity described as moderate. When seen in the E.D., severity described as moderate. Modifying factors. Not worsened by anything. Not relieved by anything. No nausea, loss of appetite, vomiting or diarrhea. No recent travel. Similar symptoms previously. Patient has had similar symptoms chronically. Recent medical care: The patient was seen recently at this facility and another facility in the emergency department and office and a clinic.REVIEW OF SYSTEMSNo constipation, black stools, hematemesis, difficulty with urination or pain with urination. No urinaryfrequency, bloody stools, fever, headache or sore throat. No blurred vision, chest pain, difficulty breathing,joint pain or skin rash. No chills. Last bowel movement: today. The patient has not had weight loss.PAST HISTORYSee nurses notes. Gallstones. Problems: Hematuria. Hernia. Abdominal Pain. Asthma. Seizure Disorder. Seziures. Renal Colic. Seizure. Surgeries: Prior abdominal surgery: hernia surgery; gall bladder surgery. Additional Surgeries: Adenoidectomy. Hernia Repair. 2 Clinical Report - Physicians/Mid Levels [facility] Emergency Department [address] [place] [address] Phone #: ext- [phone] 03/09/2020 17:13 Patient: NICK TRUJILLO [facility]#: [id number] Sex: M : 1990 Age: 29y Tonsillectomy. Umbilical Hernia Repair. Medications: Zofran ODT Oral, as needed. Albuterol Sulfate Inhalation, as needed. Incruse Ellipta Inhalation, daily. Keppra Oral. Lisinopril-hydroCHLOROthiazide Oral (Tablet 20-25 mg), daily. Lopid Oral (Tablet 600 mg), 2x a day. Mobic Oral, daily. Perforomist Inhalation (Nebulization Solution 20 mcg/2mL), q4h. Pristiq Oral (Tablet Extended Release 24 Hour 50 mg), daily. Singulair Oral 10 mg, daily. Stool Softener Oral (Capsule 100 mg), daily. Sucralfate Oral 1 gm, 4x a day. SUMAtriptan Succinate Oral (Tablet 100 mg), daily. Theophylline Oral 400 mg, 2x a day. Topamax Oral, daily. Allergies: Dilantin. Naproxen. Naproxsyn. Tylenol with codein. Tylenol with codiene.SOCIAL HISTORYFormer smoker. No alcohol use or drug use. No recent travel. Resides in a house. He lives with afamily member.ADDITIONAL NOTESThe nursing notes have been reviewed with agreement regarding the chief complaint, HPI, ROS, PMH andpatient medications and allergies.PHYSICAL EXAMVital Signs: 03/09/2020 21:15 BP: lying 133/87. MAP: 102. HR: 86. RR: 18. O2 saturation: 96% on roomair. Temp: 98.4 F. Pain level now: 10/04. Have been reviewed as normal.Appearance: Alert. No acute distress. Anxious. No apparent distress.Eyes: Pupils equal, round and reactive to light. Eyes normal inspection.ENT: Pharynx normal.Neck: Normal inspection. Neck supple.CVS: Normal heart rate. Heart sounds normal. Pulses normal.Respiratory: No respiratory distress. Painless inspiration. Breath sounds normal. Chest nontender.Abdomen: Soft and nontender. Tenderness in the epigastric area and periumbilical area. Bowel sounds 3 Clinical Report - Physicians/Mid [facility] Emergency Department [address] [place] [address] Phone #: ext- [phone] 03/09/2020 17:13 Patient: NICK TRUJILLO Sex: M : 1990 Age: 29y normal. No organomegaly. No mass. No rebound tenderness, distention, mass present or organomegaly. The bowel sounds are not abnormal. Back: Normal inspection. No CVA tenderness. Skin: No cyanosis. Skin warm. Normal skin color. No rash. No diaphoresis. Extremities: Extremities exhibit normal ROM. No lower extremity edema. No calf tenderness. No lower extremity edema. Neuro: Oriented X 3. No alteration in mental status. No cranial nerve deficit. No motor deficit. No weakness. No sensory deficit. No sensory deficit.LABS, X-RAYS, AND EKGAbdominal CT: No free fluid. post op findings. s/p cholecystectomy, umbilical herbnia repair. The studywas interpreted by the radiologist.Laboratory Tests: Laboratory tests have been ordered, with results reviewed and considered in themedical decision making process. CT Abd Pelv W/Oral Contrast Only: (KAVITA: 03/09/2020 20:50) ( MsgRcvd 03/09/2020 23:31) In Progress CT ABD Reason(s): Abdominal Pain TRANSPORTATION: WC IV? IV?(No) O2? Oxygen?(No) Tonia Exam CT ABD //T// PELV W/[place] [address] PHONE: [phone] FAX: [phone] Name .................. : GAVIOTA Madison Acct Number.................. : [id number] ROOM. ... .............. : TR-08 Number ................... : [id number] Stay type ............. : E/R Discharge Date......... ... : Admit Date ......... : 03/09/20 Admit Phys .................... : TALIA Madison Date of ....... : 1990 Family Phys ................... : HESTER HARD Phone .................. : [phone] Age ................................ : 29 Film# .................. .:[id number] Sex ................................. : M Unsigned transcriptions are preliminary reports and do not represent a medical or legal document CT ABD Reason(s): Abdominal Pain CT OF THE ABDOMEN AND PELVIS WITH CONTRAST: INDICATION: Abdominal pain. FINDINGS/IMPRESSION: The chest space is grossly clear. There is normal contrast-enhanced CT appearance of the liver, spleen, pancreas, adrenal glands and kidneys. The patient appears to be status post open cholecystectomy. There is no evidence of biliary duct dilatation. The visualized bowel is normal in caliber. Postoperative changes are noted in the right lower quadrant. No bowel wall thickening. 4 Clinical Report - Physicians/Mid Levels [facility] Emergency Department [address] [place] [address] Phone #: ext- [phone] 03/09/2020 17:13 Patient: NICK TRUJILLO Sex: M : 1990 Age: 29y The bladder and pelvis organs appear normal. No acute osseous abnormality. No lymphadenopathy. There is a 2.1 x 2.5 cm umbilical hernia with increased density. I am unsure if this is a recent postoperative appearance versus fluid in a previous laparoscopic port tract. While performing the above CT examination, radiation dose reduction was accomplished utilizing automated exposure control, adjusting of the mA and kV based on the patient's body size and/or the use of imperative reconstructive techniques. CT dose: 2921.5 mGycm Contrast agent in mL: 75 Isovue 370 Page 1of 2 [facility] [address] [place] [address] PHONE: [phone] FAX: [phone] Name .................. : GAVIOTA Madison Acct Number.................. : [id number] ROOM. ................. : TR-08 MR Number ................... : [id number] Stay type ............. : E/R Discharge Date......... ... : Admit Date ......... : 03/09/20 Admit Phys .................... : TALIA Madison Date of ....... : 1990 Family Phys ................... : MIR HARD Phone .................. : [phone] Age ..................... ........... : 29 Film# .................. .:[id number] Sex ................................. : M Unsigned transcriptions are preliminary reports and do not represent a medical or legal document CT ABD Reason(s): Abdominal Pain Method of administration: Intravenous Electronically Reviewed and Signed By DCTNAME , SIGNDATE, MARQUISE Transcribe Initials: GUCCI , Transcribe Date: 03/09/20 23:30, Dictation Date: <<REPDIST>> Page 2of 2ISOVUE 370 CONTRAST (PER ML): (KAVITA: 03/09/2020 20:43) ( MsgRcvd 03/09/2020 21:11) CanceledPREGNANCY STATUS: NA MALE ISOLATION n 5 Clinical Report - Physicians/Mid Levels [facility] Emergency Department [address] [place] [address] Phone #: ext- [phone] 03/09/2020 17:13 Patient: NICK TRUJILLO Sex: M : 1990 Age: 29yCT ABD PEL W/Oral/IV Contrast: (KAVITA: 03/09/2020 18:55) ( MsgRcvd 03/09/2020 20:50) CanceledReason(s): post opReason(s): post opTRANSPORTATION: WC IV? IV?(Yes) O2? Oxygen?(No) RoCMP: (KAVITA: 03/09/2020 19:10) ( MsgRcvd 03/09/2020 19:38) Final results Test Result Flag Units (Reference) COMPREHENSIVE METABOLIC PANEL COMPREHENSIVE METABOLIC PANEL SODIUM 142 mEq/L (134 - 153) POTASSIUM 3.8 mEq/L (3.6 - 5.0) CHLORIDE 106 mEq/L (98 - 107) CO2 21 L MEQ/L (22 - 30) GLUCOSE 118 H MG/DL (65 - 110) BUN 11 MG/DL (7 - 21) CREATININE 0.9 MG/DL (0.7 - 1.5) BUN/CREAT 12 (8 - 27) TOTAL PROTEIN 7.8 G/DL (6.3 - 8.2) ALBUMIN 4.4 G/DL (3.9 - 5.0) GLOBULIN 3.4 H GM/DL (2.4 - 3.2) A/G RATIO 1.3 (0.8 - 2.0) CALCIUM 9.2 MG/DL (8.4 - 10.2) TOTAL BILI <0.7 MG/DL (0.2 - 1.3) ALKALINE PHOS 98 U/L (38 - 126) SGOT/AST 20 U/L (5 - 40) SGPT/ALT 32 U/L (7 - 56) ANION GAP 15.0 mmol/L (8.0 - 16.0) AGE 29 yrs NON-AA GFR >60 mL/min AFR AMER GFR >60 mL/min Male GFR Interprentation 20-49 yrs >60 mL/min Oflhab82-08 yrs >56 mL/min Normal 60-69 yrs >49 mL/min Normal 70-79yrs>42 mL/min Normal 80 and above >35 mL/min Normal Female GFRInterpretation 20-39 yrs >60 mL/min Normal 40-49 yrs >58 mL/minNormal 50-59 yrs >51 mL/min Normal 60-69 yrs >45 mL/min Delhhz98-44 yrs >39 mL/min Normal 80 and above >32 mL/min NormalLipase: (KAVITA: 03/09/2020 19:10) ( [facility] 03[facility] 19[facility]35) Final results Test Result Flag Units (Reference) LIPASE 39 U/L (13 - 60)Lactic Acid: (KAVITA: 03/09/2020 19:10) ( MsgRcvd 03/09/2020 19:19) Final results Test Result Flag Units (Reference) LACTIC ACID 3.4 H MMOL/L (0.2 - 2.2)CBC w Diff: (KAVITA: 03/09/2020 19:10) ( MsgRcvd 03/09/2020 19:17) Final results Test Result Flag Units (Reference) CBC W/AUTOMATED DIFF COMPLETE BLOOD COUNT WBC 11.1 H 10/uL (4.2 - 11.0) RBC 5.71 10/uL (4.50 - 6.30) HEMOGLOBIN 16.4 H g/dL (14.0 - 16.0) HEMATOCRIT 51.4 H % (41.0 - 51.0) 6 Clinical Report - Physicians/Mid Levels [facility] Emergency Department [address] [place] [address] Phone #: ext- [phone] 03/09/2020 17:13 Patient: NICK TRUJILLO Sex: M : 1990 Age: 29y MCV 90.0 fL (80.0 - 94.0) MCH 28.7 pg (27.0 - 34.0) MCHC 31.9 g/dL (31.0 - 36.0) RDW 14.1 % (11.5 - 14.8) PLATELETS 209 10/uL (150 - 450) MPV 9.0 fL (7.4 - 10.4) NEUT 71.7 % (37.0 - 80.0) LYMPH 16.6 L % (25.0 - 40.0) MONO 5.9 % (3.0 - 8.0) EOS 5.1 % (0.0 - 7.0) BASO 0.3 % (0.0 - 2.0) %IG 0.4 H % (0.0 - 0.0) %NRBC 0.0 % (0.0 - 0.0) #NEUT 7.98 H 10/uL (2.00 - 6.90) #LYMPH 1.85 10/uL (0.60 - 3.40) #MONO 0.66 10/uL (0.00 - 0.90) #EOS 0.57 10/uL (0.00 - 0.70) #BASO 0.03 10/uL (0.00 - 0.20) #IG 0.04 10/uL (0.00 - 0.10) #N RBC 0.00 10/uL (0.00 - 0.00) MANUAL DIFF NOT INDICATED RBC MORPH NOT INDICATED Urinalysis: (KAVITA: 03/09/2020 19:20) ( MsgRcvd 03/09/2020 19:33) Final results Test Result Flag Units (Reference) URINALYSIS URINALYSIS SOURCE R COLOR yellow (NORMAL: Yello CLARITY clear (NORMAL: Clear SPEC GRAVITY 1.010 (1.001 - 1.030 pH 7 (5 - 9) GLUCOSE NORM (NORMAL: Negat BILIRUBIN NEG (NORMAL: Negat KETONE NEG (NORMAL: Negat PROTEIN NEG (NORMAL: Negat NITRITE NEG (NORMAL: Negat BLOOD NEG (NORMAL: Negat LEUK EST NEG (NORMAL: Negat UROBILINOGEN NOR (less than 1.0 MICROSCOPIC Not Indicate.PROGRESS AND PROCEDURESCourse of Care: 00:10 03/10/20. Patient is stable. The patient's symptoms are now gone. Physicalexam findings are improved. patient comfortable, no distress. explained lab results and ct findings. has an appointment with his surgeon at [facility] next week, advised to keep the appointment, return if any symptoms. Patient/family counseled. Old medical records ordered. Disposition: Discharged home in good and improved cond ition (00:11 Mar 10 2020). Condition: stable. 7 Clinical Report - Physicians/Mid Levels [facility] Emergency Department [address] [place] [address] Phone #: ext- [phone] 03/09/2020 17:13 Patient: NICK TRUJILLO Sex: M : 1990 Age: 29yCLINICAL IMPRESSION Chronic abdominal pain. Chronic abdominal pain of unknown cause. Chronic gastritis post op pain.INSTRUCTIONS No strenuous activity. Do not work. Drink plenty of fluids. No alcohol. (call your surgeon in am for an appointment for receck and further care.). Warnings: Further evaluation is necessary. SEDATIVE MEDICATION: You were given sedative medication during your visit. Do not drive or operate dangerous machinery. GENERAL WARNINGS: Return or contact your physician immediately if your condition worsens or changes unexpectedly, if not improving as expected, or if other problems arise. Follow- up: Follow up with your healthcare provider even if well. Call for an appointment. Reason for referral: evaluation and treatment. Summary of care provided to patient, family and follow-up provider via paper. Follow up with a surgeon even if well. Call for an appointment. Reason for referral: evaluation and treatment. Summary of care provided to patient and follow-up provider via paper. Understanding of the discharge instructions verbalized.(Electronically signed by Hitesh Melgar M.D. 03/10/2020 03:45) Name Value Range Interpretation Code Description Data Giovana rce(s) Supporting Document(s) ID Date Data Source [id number] 03/09/2020 07:33:00 PM EDT [facility] Name Value Range Interpretation Code Description Data Giovana rce(s) Supporting Document(s) URINALYSIS [facility] giovanna URINALYSIS SOURCE R [facility] COLOR yellow NORMAL: Yellow [facility] CLARITY clear NORMAL: Clear [facility] Specific gravity of Urine by Test strip 1.010 1.001 - 1.030 [facility] pH 7 5 - 9 [facility] Glucose [Mass/volume] in Urine by Test strip NORM NORMAL: Negat [facility] Bilirubin.total [Presence] in Urine by Test strip NEG NORMAL: Negative [facility] Ketones [Presence] in Urine by Test strip NEG NORMAL: Negative [facility] Protein [Mass/volume] in Urine by Test strip NEG NORMAL: Negat [facility] Nitrite [Presence] in Urine by Test strip NEG NORMAL: Negative [facility] BLOOD NEG NORMAL: Negative [facility] Leukocyte esterase [Presence] in Urine by Test strip NEG MILAGROS L: Negative [facility] Urobilinogen [Mass/volume] in Urine by Test strip NOR less vanessa n 1.0 mg/dL [facility] MICROSCOPIC Not Indicate [facility] ospital ID Date Data Source [id number] 03/09/2020 07:38:00 PM EDT [facility] Name Value Range Interpretation Code Description Data Giovana rce(s) Supporting Document(s) COMPREHENSIVE METABOLIC PANEL [facility] COMPREHENSIVE METABOLIC PANEL Sodium [Moles/volume] in Serum or Plasma 142 mEq/L 134 - 153 [facility] Potassium [Moles/volume] in Serum or Plasma 3.8 mEq/L 3.6 - 5.0 [facility] Chloride [Moles/volume] in Serum or Plasma 106 mEq/L 98 - 107 [facility] Carbon dioxide, total [Moles/volume] in Serum or Plasma 21 MEQ/L 22 - 30 L [facility] Glucose [Mass/volume] in Serum or Plasma 118 MG/DL 65 - 110 H [facility] BUN 11 MG/DL 7 - 21 [facility] Creatinine [Mass/volume] in Serum or Plasma 0.9 MG/DL 0.7 - 1.5 [facility] BUN/CREAT 12 8 - 27 [facility] Protein [Mass/volume] in Serum or Plasma 7.8 G/DL 6.3 - 8.2 [facility] Albumin [Mass/volume] in Serum or Plasma 4.4 G/DL 3.9 - 5.0 [facility] Globulin [Mass/volume] in Serum by calculation 3.4 GM/DL 2.4 - 3.2 H [facility] A/G RATIO 1.3 0.8 - 2.0 [facility] Calcium [Mass/volume] in Serum or Plasma 9.2 MG/DL 8.4 - 10.2 [facility] Bilirubin.total [Mass/volume] in Serum or Plasma <0.7 MG/DL 0.2 - 1.3 [facility] Alkaline phosphatase [Enzymatic activity/volume] in Serum or Plasma 98 U/L 38 - 126 [facility] Aspartate aminotransferase [Enzymatic activity/volume] in Serum or Plasma 20 U/L 5 - 40 [facility] Alanine aminotransferase [Enzymatic activity/volume] in Seru m or Plasma 32 U/L 7 - 56 [facility] Anion gap 3 in Serum or Plasma 15.0 mmol/L 8.0 - 16.0 [facility] AGE 29 yrs [facility] NON-AA GFR >60 mL/min [facility] AFR AMER GFR >60 mL/min [facility] Male GFR In terprentation 20-49 yrs >60 mL/min Normal 50-59 yrs >56 mL/min Normal 60-69 yrs >49 mL/min Normal 70-79yrs >42 mL/min Normal 80 and above >35 mL/min Normal Female GFR Interpretation 20-39 yrs >60 mL/min Normal 40-49 yrs >58 mL/min Normal 50-59 yrs >51 mL/min Normal 60-69 yrs >45 mL/min Normal 70-79 yrs >39 mL/min Normal 80 and above >32 mL/min Normal ID Date Data Source [id number] 03/09/2020 07:35:00 PM EDT [facility] Name Value Range Interpretation Code Description Data Giovana rce(s) Supporting Document(s) Lipase [Enzymatic activity/volume] in Serum or Plasma 39 U/L 13 - 60 [facility] ID Date Data Source [id number] 03/09/2020 07:19:00 PM EDT [facility] Name Value Range Interpretation Code Description Data Giovana rce(s) Supporting Document(s) Lactate [Moles/volume] in Serum or Plasma 3.4 MMOL/L 0.2 - 2.2 H [facility] ID Date Data Source [id number] 03/09/2020 07:17:00 PM EDT [facility] Name Value Range Interpretation Code Description Data Giovana rce(s) Supporting Document(s) CBC W/AUTOMATED DIFF [facility] COMPLETE BLOOD COUNT Leukocytes [#/volume] in Blood by Automated count 11.1 10^3/uL 4.2 - 11.0 H [facility] Erythrocytes [#/volume] in Blood by Automated count 5.71 10^6/uL 4. 50 - 6.30 [facility] Hemoglobin [Mass/volume] in Blood 16.4 g/dL 14.0 - 16.0 H [facility] Hematocrit [Volume Fraction] of Blood by Automated count 51.4 % 4 1.0 - 51.0 H [facility] Erythrocyte mean corpuscular volume [Entitic volume] by Auto mated count 90.0 fL 80.0 - 94.0 [facility] Erythrocyte mean corpuscular hemoglobin [Entitic mass] by Automated count 28.7 pg 27.0 - 34.0 [facility] Erythrocyte mean corpuscular hemoglobin concentration [Mass/volume] by Automated count 31.9 g/dL 31.0 - 36.0 [facility] Erythrocyte distribution width [Ratio] by Automated count 14.1 % 11.5 - 14.8 [facility] Platelets [#/volume] in Blood by Automated count 209 10^3/uL 150 - 45 0 [facility] Platelet mean volume [Entitic volume] in Blood by Automated count 9.0 fL 7.4 - 10.4 [facility] Neutrophils/100 leukocytes in Blood by Automated count 71.7 % 37. 0 - 80.0 [facility] Lymphocytes/100 leukocytes in Blood by Manual count 16.6 % 25.0 - 40.0 L [facility] Monocytes/100 leukocytes in Blood by Automated count 5.9 % 3.0 - 8.0 [facility] Eosinophils/100 leukocytes in Blood by Automated count 5.1 % 0.0 - 7.0 [facility] Basophils/100 leukocytes in Blood by Automated count 0.3 % 0.0 - 2.0 [facility] %IG 0.4 % 0.0 - 0.0 H [facility] al %NRBC 0.0 % 0.0 - 0.0 [facility] Neutrophils [#/volume] in Blood by Automated count 7.98 10^3/uL 2.00 - 6.90 H [facility] Lymphocytes [#/volume] in Blood by Automated count 1.85 10^3/uL 0.60 - 3.40 [facility] Monocytes [#/volume] in Blood by Automated count 0.66 10^3/uL 0.00 - 0.90 [facility] Eosinophils [#/volume] in Blood by Automated count 0.57 10^3/uL 0.00 - 0.70 [facility] Basophils [#/volume] in Blood by Automated count 0.03 10^3/uL 0.00 - 0.20 [facility] #IG 0.04 10^3/uL 0.00 - 0.10 [facility] #NRBC 0.00 10^3/uL 0.00 - 0.00 [facility] MANUAL DIFF NOT INDICATED [facility] RBC MORPH NOT INDICATED [facility] spital ID Date Data Source [id number] 02/23/2020 11:36:00 AM EDT [facility] ([facility]) Name Value Range Interpretation Code Description Data Giovana rce(s) Supporting Document(s) CBC W/Automated Diff Laboratory test result [facility] ([facility]) Is patient fasting? N WBC 10.6 10^3/uL 4.2-11.0 [facility] ([facility]) Is patient fasting? N RBC 5.78 10^6/uL 4.50-6.30 [facility] ([facility]) Is patient fasting? N Hematocrit 51.1 % 41.0-51.0 Above high normal [facility] ([facility]) Is patient fasting? N Hemoglobin 16.3 g/dL 14.0-16.0 Above high normal [facility] ([facility]) Is patient fasting? N MCV 88.4 fL 80.0-94.0 [facility] ([facility]) Is patient fasting? N RDW 13.5 % 11.5-14.8 [facility] ([facility]) Is patient fasting? N MCH 28.2 pg 27.0-34.0 [facility] ([facility]) Is patient fasting? N MCHC 31.9 g/dL 31.0-36.0 [facility] ([facility]) Is patient fasting? N Platelets 262 10^3/uL 150-450 [facility] ([facility]) Is patient fasting? N Neut 65.2 % 37.0-80.0 [facility] ([facility]) Is patient fasting? N Lymph 18.6 % 25.0-40.0 Below low normal [facility] ( [facility]) Is patient fasting? N MPV 9.6 fL 7.4-10.4 [facility] ([facility]) Is patient fasting? N Eos 7.6 % 0.0-7.0 Above high normal [facility] ([facility]) Is patient fasting? N [place] 7.6 % 3.0-8.0 [facility] ([facility]) Is patient fasting? N Baso 0.5 % 0.0-2.0 [facility] ([facility]) Is patient fasting? N %NRBC 0.0 % 0.0-0.0 [facility] ([facility]) Is patient fasting? N %Ig 0.5 % 0.0-0.0 Above high normal [facility] ([facility]) Is patient fasting? N #Lymph 1.97 10^3/uL 0.60-3.40 [facility] ([facility]) Is patient fasting? N #Neut 6.92 10^3/uL 2.00-6.90 Above high normal [facility] ([facility]) Is patient fasting? N #[place] 0.81 10^3/uL 0.00-0.90 [facility] ([facility]) Is patient fasting? N #Eos 0.81 10^3/uL 0.00-0.70 Above high normal [facility] ([facility]) Is patient fasting? N #Baso 0.05 10^3/uL 0.00-0.20 [facility] ([facility]) Is patient fasting? N #Ig 0.05 10^3/uL 0.00-0.10 [facility] ([facility]) Is patient fasting? N Manual Diff Laboratory test result [facility] ([facility]) Is patient fasting? N RBC Morph Laboratory test result [facility] ([facility]) Is patient fasting? N #NRBC 0.00 10^3/uL 0.00-0.00 [facility] ([facility]) Is patient fasting? N ID Date Data Source [id number] 02/23/2020 11:36:00 AM EDT [facility] ([facility]) Name Value Range Interpretation Code Description Data Giovana rce(s) Supporting Document(s) Hemoglobin A1c/Hemoglobin.total in Blood 4.9 % 4.4-6.1 [facility] ([facility]) Is patient fasting? N Topiramate [Mass/volume] in Serum or Plasma 7.3 ug/mL 2.0-25.0 [facility] ([facility]) Is patient fasting? N ID Date Data Source [id number] 02/23/2020 11:36:00 AM EDT [facility] ([facility]) Name Value Range Interpretation Code Description Data Giovana rce(s) Supporting Document(s) Comprehensive [employer] Laboratory test result [facility] ([facility]) Is patient fasting? N Chloride 103 meq/L 98-107 [facility] ([facility]) Is patient fasting? N Sodium 141 meq/L 134-153 [facility] ([facility]) Is patient fasting? N Potassium 3.8 meq/L 3.6-5.0 [facility] ([facility]) Is patient fasting? N Co2 25 meq/L 22-30 [facility] ([facility]) Is patient fasting? N BUN 8 mg/dL 7-21 [facility] ([facility]) Is patient fasting? N Glucose 86 mg/dL 65-110 [facility] ([facility]) Is patient fasting? N Creatinine 0.9 mg/dL 0.7-1.5 [facility] ([facility]) Is patient fasting? N Total Protein 7.8 g/dL 6.3-8.2 [facility] ([facility]) Is patient fasting? N BUN/Creat 9 8-27 [facility] ([facility]) Is patient fasting? N A/G Ratio 1.2 0.8-2.0 [facility] Is patient fasting? N Albumin 4.3 g/dL 3.9-5.0 [facility] ([facility]) Is patient fasting? N Globulin 3.5 GM/DL 2.4-3.2 Above high normal [facility] ([facility]) Is patient fasting? N Calcium 9.4 mg/dL 8.4-10.2 [facility] ([facility]) Is patient fasting? N Alkaline Phos 101 U/L 38-126 [facility] ([facility]) Is patient fasting? N Total Bili Laboratory test result 0.2-1.3 ME [facility] ([facility]) Is patient fasting? N Sgot/Ast 19 U/L 5-40 [facility] ([facility]) Is patient fasting? N SGPT/Alt 35 U/L 7-56 [facility] ([facility]) Is patient fasting? N Anion Gap 13.0 mmol/L 8.0-16.0 [facility] ([facility]) Is patient fasting? N Age 29 yrs [facility] ([facility]) Is patient fasting? N Non-Aa GFR Laboratory test result [facility] ([facility]) Is patient fasting? N Afr Amer GFR Laboratory test result [facility] ([facility]) Is patient fasting? N ID Date Data Source [id number] 02/23/2020 11:36:00 AM EDT [facility] ([facility]) Name Value Range Interpretation Code Description Data Giovana rce(s) Supporting Document(s) Thyrotropin [Units/volume] in Serum or Plasma 1.92 uIU/mL 0.47-5.01 [facility] ([facility]) Is patient fasting? N Thyroxine (T4) free [Mass/volume] in Serum or Plasma 0.85 ng/dL 0.93-1.70 Below low normal [facility] ([facility]) Is patient fasting? N ID Date Data Source [id number] 02/23/2020 11:36:00 AM EDT [facility] ([facility]) Name Value Range Interpretation Code Description Data Giovana rce(s) Supporting Document(s) Free Hodgkins Lt Chains,S 31.4 mg/L 3.3-19.4 Above high normal [facility] ([facility]) Is patient fasting? N Hodgkins/Lambda Ratio,S 1.03 NA 0.26-1.65 MEDE NT ([facility]) Is patient fasting? N Free Lambda Lt Chains,S 30.5 mg/L 5.7-26.3 Above high normal [facility] ([facility]) Is patient fasting? N ID Date Data Source [id number] 02/29/2020 07:03:00 AM EDT [facility] Name Value Range Interpretation Code Description Data Giovana rce(s) Supporting Document(s) Topiramate [Mass/volume] in Serum or Plasma 7.3 ug/mL 2.0-25.0 [facility] This test was developed and its performa nce characteristicsdetermined by [facility]. It has not been cleared or approvedby the Food and Drug Administration. Detection Limit = 1.0 ID Date Data Source [id number] 02/26/2020 06:44:00 AM EDT [facility] Name Value Range Interpretation Code Description Data Giovana rce(s) Supporting Document(s) Immunoglobulin light chains.kappa.free [Mass/volume] in Seru m 31.4 mg/L 3.3-19.4 H [facility] Immunoglobulin light chains.lambda.free [Mass/volume] in Serum or Plasma 30.5 mg/L 5.7-26.3 H [facility] Immunoglobulin light chains.kappa.free/I mmunoglobulin light chains.lambda.free [Mass Ratio] in Serum 1.03 NA 0.26-1.65 [facility] ID Date Data Source [id number] 02/23/2020 11:36:00 AM EDT [facility] ([facility]) Name Value Range Interpretation Code Description Data Giovana rce(s) Supporting Document(s) Thyrotropin [Units/volume] in Serum or Plasma Laboratory test result [facility] ([facility]) Thyroxine (T4) free [Mass/volume] in Serum or Plasma Laboratory alok t result [facility] ([facility]) Immunoglobulin light chains.kappa.free [Mass/volume] i n Serum Laboratory test result [facility] ([facility]) ID Date Data Source [id number] 02/23/2020 04:35:00 PM EDT [facility] Value Range Interpretation Code Description Data Giovana rce(s) Supporting Document(s) Thyroxine (T4) free index in Serum or Plasma by calculation 0.85 NG/DL 0.93 - 1.70 L [facility] ID Date Data Source [id number] 02/23/2020 04:33:00 PM EDT [facility] Name Value Range Interpretation Code Description Data [facility] Supporting Document(s) Thyrotropin [Units/volume] in Serum or Plasma by Detec tion limit <= 0.05 mIU/L 1.92 uIU/mL 0.47 - 5.01 [facility] ID Date Data Source [id number] 02/23/2020 04:19:00 PM EDT [facility] Name Value Range Interpretation Code Description Data Giovana [facility](s) Supporting Document(s) CBC W/AUTOMATED DIFF [facility] COMPLETE BLOOD COUNT Leukocytes [#/volume] in Blood by Automated count 10.6 10^3/uL 4.2 - 11.0 [facility] Erythrocytes [#/volume] in Blood by Automated count 5.78 10^6/uL 4. 50 - 6.30 [facility] Hemoglobin [Mass/volume] in Blood 16.3 g/dL 14.0 - 16.0 H [facility] Hematocrit [Volume Fraction] of Blood by Automated count 51.1 % 4 1.0 - 51.0 H [facility] Erythrocyte mean corpuscular volume [Entitic volume] by Auto mated count 88.4 fL 80.0 - 94.0 [facility] Erythrocyte mean corpuscular hemoglobin [Entitic mass] by Automated count 28.2 pg 27.0 - 34.0 [facility] Erythrocyte mean corpuscular hemoglobin concentration [Mass/volume] by Automated count 31.9 g/dL 31.0 - 36.0 [facility] Erythrocyte distribution width [Ratio] by Automated count 13.5 % 11.5 - 14.8 [facility] Platelets [#/volume] in Blood by Automated count 262 10^3/uL 150 - 45 0 [facility] Platelet mean volume [Entitic volume] in Blood by Automated count 9.6 fL 7.4 - 10.4 [facility] Neutrophils/100 leukocytes in Blood by Automated count 65.2 % 37. 0 - 80.0 [facility] Lymphocytes/100 leukocytes in Blood by Manual count 18.6 % 25.0 - 40.0 L [facility] Monocytes/100 leukocytes in Blood by Automated count 7.6 % 3.0 - 8.0 [facility] Eosinophils/100 leukocytes in Blood by Automated count 7.6 % 0.0 - 7.0 H [facility] Basophils/100 leukocytes in Blood by Automated count 0.5 % 0.0 - 2.0 [facility] %IG 0.5 % 0.0 - 0.0 H [facility] %NRBC 0.0 % 0.0 - 0.0 [facility] Neutrophils [#/volume] in Blood by Automated count 6.92 10^3/uL 2.00 - 6.90 H [facility] Lymphocytes [#/volume] in Blood by Automated count 1.97 10^3/uL 0.60 - 3.40 [facility] Monocytes [#/volume] in Blood by Automated count 0.81 10^3/uL 0.00 - 0.90 [facility] Eosinophils [#/volume] in Blood by Automated count 0.81 10^3/uL 0.00 - 0.70 H [facility] Basophils [#/volume] in Blood by Automated count 0.05 10^3/uL 0.00 - 0.20 [facility] #IG 0.05 10^3/uL 0.00 - 0.10 [facility] ospital #NRBC 0.00 10^3/uL 0.00 - 0.00 [facility] ospital MANUAL DIFF NOT INDICATED [facility] RBC MORPH NOT INDICATED [facility] spital ID Date Data Source [id number] 02/23/2020 04:14:00 PM EDT [facility] Name Value Range Interpretation Code Description Data Giovana rce(s) Supporting Document(s) COMPREHENSIVE METABOLIC PANEL [facility] COMPREHENSIVE METABOLIC PANEL Sodium [Moles/volume] in Serum or Plasma 141 mEq/L 134 - 153 [facility] Potassium [Moles/volume] in Serum or Plasma 3.8 mEq/L 3.6 - 5.0 [facility] Chloride [Moles/volume] in Serum or Plasma 103 mEq/L 98 - 107 [facility] Carbon dioxide, total [Moles/volume] in Serum or Plasma 25 MEQ/L 22 - 30 [facility] Glucose [Mass/volume] in Serum or Plasma 86 MG/DL 65 - 110 [facility] BUN 8 MG/DL 7 - 21 [facility] Creatinine [Mass/volume] in Serum or Plasma 0.9 MG/DL 0.7 - 1.5 [facility] BUN/CREAT 9 8 - 27 [facility] Protein [Mass/volume] in Serum or Plasma 7.8 G/DL 6.3 - 8.2 [facility] Albumin [Mass/volume] in Serum or Plasma 4.3 G/DL 3.9 - 5.0 [facility] Globulin [Mass/volume] in Serum by calculation 3.5 GM/DL 2.4 - 3.2 H [facility] A/G RATIO 1.2 0.8 - 2.0 [facility] Calcium [Mass/volume] in Serum or Plasma 9.4 MG/DL 8.4 - 10.2 [facility] Bilirubin.total [Mass/volume] in Serum or Plasma <0.7 MG/DL 0.2 - 1.3 [facility] Alkaline phosphatase [Enzymatic activity/volume] in Serum or Plasma 101 U/L 38 - 126 [facility] Aspartate aminotransferase [Enzymatic activity/volume] in Serum or Plasma 19 U/L 5 - 40 [facility] Alanine aminotransferase [Enzymatic activity/volume] in Seru m or Plasma 35 U/L 7 - 56 [facility] Anion gap 3 in Serum or Plasma 13.0 mmol/L 8.0 - 16.0 [facility] AGE 29 yrs [facility] al NON-AA GFR >60 mL/min [facility] ital AFR AMER GFR >60 mL/min [facility] spital Male GFR In terprentation 20-49 yrs >60 mL/min Normal 50-59 yrs >56 mL/min Normal 60-69 yrs >49 mL/min Normal 70-79yrs >42 mL/min Normal 80 and above >35 mL/min Normal Female GFR Interpretation 20-39 yrs >60 mL/min Normal 40-49 yrs >58 mL/min Normal 50-59 yrs >51 mL/min Normal 60-69 yrs >45 mL/min Normal 70-79 yrs >39 mL/min Normal 80 and above >32 mL/min Normal ID Date Data Source [id number] 02/23/2020 04:05:00 PM EDT [facility] Name Value Range Interpretation Code Description Data Giovana rce(s) Supporting Document(s) Hemoglobin A1c/Hemoglobin.total in Blood 4.9 % 4.4 - 6.1 [facility] {A1]{HB] ID Date Data Source [id number] 02/10/2020 09:57:30 AM EDT [facility] INFORMATIONPatient MRN Name Date of Age Gend*PT [id number] Nick Trujillo 1990 29 years M SDCPT Location Admission Date/Time [facility] 0851 --- --- EPI ID CSN Admitting Provider [id number] Robert Tamayo MD([id number]) [place] [address] OPERATIVE REPORT OPNAME: NICK TRUJILLO#: [id number] #: [id number] ADMISSION DATE: 02/09/2020DOB: 1990 SEX: M PT TYPE: H SURACCT #: [id number] CARE PHYSICIAN: ADITYA HELLERDATE OF OPERATION: 020PREOPERATIVE DIAGNOSIS:Incarcerated incisional hernia.POSTOPERATIVE DIAGNOSIS:Incarcerated incisional hernia.OPERATION:Robotic repair of incarcerated incisional hernia.SURGEON:Robert Tamayo MDASSISTANT:Violeta Marley.ANESTHESIA:GET.INDICATIONS FOR SURGERY:This is a patient who presented with an incarcerated supraumbilical hernia. This was assessed as being an incisional hernia because the patient had apriorhernia repair with mesh in that location. I advised the patient to undergorepair of his hernia as it was incarcerated and painful. Risks, benefitsand options were explained. Risks include but not limited to postoperativebleeding, infection, wound healing problems, scarring, need for meshplacement, potential for yet another recurrence. He understood this andsigned informed consent.OPERATIVE TECHNIQUE:Under adequate general anesthesia in the supine position, the abdomen wasshaved, prepped and draped in sterile fashion. Patient and procedure wereconfirmed according to protocol. An initial 8 mm incision was made in theright upper quadrant and the peritoneal cavity entered using a 5 mmVisiport. Adequate insufflation was achieved and the laparoscope was thenplaced through the Visiport. The anterior abdominal wall was examined andan incisional hernia incarcerated with a large blob of greater omentum wasconfirmed. Two other ports were then placed in the right mid abdomen.These were all 8 mm ports and a 5 mm port was then placed in the leftabdomen. The patient was rolled towards his left and the Xi robot broughtin and docked using a 30-degree up scope. At this point, I broke scrub andwent to the surgeon console. I began by reducing the incarcerated greateromentum. It was somewhat edematous, but viable. I then excised theperitoneum and hernia sac as much as possible. The defect, which was 4 cmin diameter, was then closed with #1 nonabsorbable V-Loc suture. The suturerepair was then reinforced with an 11.4 x [address] meshoriented vertically and with its coated surface facing bowel. The mesh wassutured into position with a circumferential stitch of 2-0 absorbable V- Locsuture. This completed the repair. The field was found to be hemostatic.At this point, instruments were removed. The robot was de-docked and portswere removed. Incisions were closed with a running subcuticular [place] dressed with Dermabond and Steri-Strips. Needle, sponge and instrumentcounts reported correct. The patient tolerated the procedure well and wasthen delivered to the recovery room in stable condition followingsuccessful reversal of general anesthesia.SANIA MENDOZA/QUEENIE Job #: [id number] DOC #: [id number] Name Value Range Interpretation Code Description Data Giovana rce(s) Supporting Document(s) ID Date Data Source [id number] 02/09/2020 02:36:21 PM EDT [facility] SPEC EXP DATE 02/12/2020PATI ENT ABO/Rh A NEGATIVEANTIBODY SCREEN NEGATIVETESTING SITE PERFORMED AT [address] [place] [address] [id number] BANK COMMENT BLOOD TYPE CONFIRMED. Name Value Range Interpretation Code Description Data Giovana rce(s) Supporting Document(s) TYPE AND SCREEN [facility] ID Date Data Source [id number] 02/08/2020 07:24:25 AM EDT [facility] INFORMATIONPatient MRN Name Date of Age Gend*PT [id number] Nick Trujillo 1990 29 years M OPPT Location Admission Date/Time Visit ID Attending Provider --- --- --- Robert Tamayo MD([id number]) EPI ID CSN Admitting Provider [id number] ---OUTPATIENT / OBSERVATIONAL SURGICAL OR INVASIVE PROCEDUREName: Nick Trujillo : 1990 Sex: male Care Provider: Delia MOONEYending Physician: Dr. Tamayo.HISTORY OF PRESENT ILLNESS: 29 years old white male with history of incisionalhernia. Patient underwent surgical repair 1 year prior to this evaluation. Hehas had recurrence of the incisional hernia with obstruction. The patientcomplains of periumbilical abdominal pain. He denies any nausea, vomiting,change in bowel habits, fever .PAST MEDICAL HISTORY:Past Medical History:Diagnosis Date Advanced Airway Equipment Used Asthma COPD (chronic obstructive pulmonary disease) Depression GERD (gastroesophageal reflux disease) Hypertension Incisional hernia with obstruction, without gangrene Morbid obesity Seizures Sleep apnea CPAPPAST SURGICAL HISTORY:Past Surgical History:Procedure Laterality Date APPENDECTOMY CHOLECYSTECTOMY COLON SURGERY HERNIA REPAIR N/A 12/25/2018 Procedure: REPAIR HERNIA INCISIONAL LAPAROSCOPIC W XI ROBOTICS; Surgeon:Robert Tamayo MD; Laterality: N/A; TONSILLECTOMY URETEROPYELOSTOMY 1988ALLERGIES:AllergiesAllergen Reactions Dilantin [Phenytoin Sodium Extended] Nausea And Vomiting Tylenol [Acetaminophen] Nausea And Vomiting Aleve [Naproxen] RashMEDICATIONS:Prior to Admission medicationsMedication Sig Start Date End Date Taking? Authorizing Provideralbuterol (PROVENTIL HFA;OLIVA TOLIN HFA) 108 (90 Base) MCG/ACT inhaler Inhale 2puffs every 4 (four) hours as needed for shortness of breath HistoricalProvider, MDalbuterol (PROVENTIL) (2.5 MG/3ML) 0.083% nebulizer solution Take 2.5 mg bynebulization every 6 (six) hours as needed for shortness of breath HistoricalProvider, MDcetirizine (ZYRTEC) 10 MG tablet Take 10 mg by mouth daily HistoricalProvider, MDdesvenlafaxine (PRISTIQ) 100 MG 24 hr tablet Take 100 mg by mouth dailyHistorical Provider, Buddyocusate sodium 100 MG CAPS Take 1 capsule (100 mg total) by mouth 2 (two) timesa day 12/25/18 Jeff Barber, NPdoxycycline (VIBRAMYCIN) 50 MG capsule Take 50 mg by mouth daily HistoricalProvider, MDformoterol (PERFOROMIST) 20 MCG/2ML nebulizer solution Take 20 mcg bynebulization every 12 (twelve) hours Historical Provider, gabapentin (NEURONTIN) 100 MG capsule Take 100 mg by mouth nightlyHistorical Provider, gemfibrozil (LOPID) 600 MG tablet Take 600 mg by mouth 2 (two) times a daybefore meals Historical Provider, ibuprofen (ADVIL,MOTRIN) 600 MG tablet Take 600 mg by mouth every 8 (eight)hours as needed for pain Historical Provider, levETIRAcetam (KEPPRA) 500 MG tablet Take 500 mg by mouth 2 (two) times a dayHistorical Provider, lisinopril-hydrochlorothiazide (PRINZIDE,ZESTORETIC) 20-25 MG per tablet Take 1tablet by mouth daily Historical Provider, Cherylethocarbamol (ROBAXIN) 750 MG tablet Take 750 mg by mouth 2 (two) times a dayas needed (for pain) Historical Provider, Cherylirtazapine (REMERON) 15 MG tablet Take 15 mg by mouth nightly HistoricalProvider, Cherylontelukast (SINGULAIR) 10 MG tablet Take 10 mg by mouth nightly HistoricalProvider, MDomeprazole (PRILOSEC) 40 MG capsule Take 40 mg by mouth 2 (two) times a dayHistorical Provider, CHELSIEUMAtriptan (IMITREX) 100 MG tablet Take 100 mg by mouth at onset of headache.May repeat once after 2 hours if needed. Historical Provider, topiramate (TOPAMAX) 200 MG tablet Take 200 mg by mouth 2 (two) times a dayHistorical Provider, Umeclidinium [place] (INCRUSE ELLIPTA) 62.5 MCG/INH AEPB Inhale 1 puff dailyHistorical Provider, NITZAARoxetine (PAXIL) 30 MG tablet Take 30 mg by mouth every morning 02/04/20Historical Provider, MDSocial HistoryTobacco Use Smoking status: Never Smoker Smokeless tobacco: Never UsedSubstance Use Topics Alcohol use: No Drug use: NoHistory reviewed. No pertinent family history.REVIEW OF SYSTEMS:Respiratory: Denies any shortness of breath, cough, yellow sputum production orwheezing.Cardiovascular: Denies any chest pain, pressure or tightness. Denies anyparoxysmal nocturnal dyspnea or orthopnea.GI: Denies nausea, vomiting, diarrhea, constipation or melena.Neurologic: Denies any numbness, tingling, tremors or syncope.Vascular: Denies any edema. Denies claudication.PHYSICAL EXAM:GENERAL: He is a 29 years old, pleasant white male, in no acute distress at timeof examination. Vitals on arrival to the office are There were no vitals takenfor this visit. There is no height or weight on file to calculate BMI..Skin is pink, warm, and dry. Sebaceous cyst present posterior neck with slighterythema. No purulent discharge.NECK: He has a grade +3 airway. Neck is supple, midline, without cervicaladenopathy. No thyromegaly. No carotid bruits.MENTAL / NEUROLOGICAL STATUS: [id number]: Clear to auscultation. No wheezes, rhonchi or crackles.HEART: Rate rhythm regular. S1, S2. No murmur, r ub or gallop.ABDOMEN: Obese. Bowel sounds positive times four. Hernia present on midline.Soft, periumbilical tenderness. No rebound tenderness. No hepatosplenomegaly.Negative CVAT.EXTREMITIES: Pulses are symmetrical. No edema.OPERATIVE SITE: No erythema or rash.Anesthesia complications: Advanced airway equipment requiredCSHA Frailty Scale :: 4/10 Vulnerable (while not dependent on others for dailyhelp, often symptoms limit activities. A common complaint is being "slowed up",and /or being tired during the day).Stop Bang Questionnaire - Total Score:ASSESSMENT: Primary Diagnosis/Indication: Incisional hernia with obstructionwithout gangrene.PLAN: Procedure: Repair incarcerated incisional hernia laparoscopic.02/04/2020 11:15 Javier Danielson document or parts of this document, were dictated using Textingly speaking software. A reasonable attempt at proofreading has beenmade to minimize errors. Please call with any questions or corrections.* Name Value Range Interpretation Code Description Data Giovana rce(s) Supporting Document(s) ID Date Data Source [id number] 02/04/2020 12:14:57 PM EDT [facility] Name Value Range Interpretation Code Description Data Giovana rce(s) Supporting Document(s) EKG [facility] PYIGEh0wEcTYZhWgp9UxChCjYFEkMV7rdrf3A4P3pYGnJ3LpcZTpe6lgU9HtV0EoNCGbPDAWBK9RnEGj jb2 [file] bkzcRbTyz1RiVcyvdryBvt2wenmjapKyH8n7u4XeQo 7hk6k9c2X1QVfGqn9s7v6L51TuMvv6a8n9Nz6Rthzj2b0c7Em9UXjgaK6R2aAo/2cLcj6Gk9/a/Oji/P uahd2by0/P+mndSf36fVKNVgTQrpa32UH6/RyOsx2Dc945icKgpkzQWoB4nVNDAs7NIGCMet8GLeq9Cb YRLYi4SDjx0wzFPAQgxw0bJEjtsdMfJOdWw32sXfa8 gXSZKofhV1eKJ/uxTExNE/uxTUyNE/uxTkzNE/tqX7pCAUurFLbMMFadPHcIMXh/VmUxK3/aqYaK/Vgq pqaK/dgqpsaK/VgrpuaK/dgrpgaL/VgspiaL/dgspkaL/VgtpmaL/dgtpoaL/VgupqaL/dgupsaL/Vgv puaL/dgvpgaM/VgwpiaM/dgwpkaM/VgxpmaMjX/1na CFP+1UU8Z+jQrKH0R+dTkZj9L+6KrIj9T+PFsHb5Z+gTvQs0Q+bGdUy0P+5WyMe6lv92jB5/cr52ztO/ Bm6CleQ/He43llBIGi1TknRWGq65rzNeQi3GosSfDx04uhWyMv9QigHoGp17mnD/Lf5VaoA/Gz26xgTP Ml7LisZJJi49ymWpRi2WiqYfCr04sfRzTb+ZiaPvZj +5gaP/Zj/ZiaP/Zj/4cnQYBlGFdyTDVtJ8tmWbUfEPbaNzAjL4arFqFaHCisLvHkE9jsI/ZjDZmaQ/Zj D7naQ/4xH8wxR/8gT8flA/6lQ1ybY/8cA5kyG/3qL9uzO/4gM2drY/4hW2sjN/8yI1cfI/4uG1fuZ/5j D7naQ/8cH9smG/4iR4ueK/8jM7dkU/1lE0dyP/5jD7 naQ/84N7E2mP57cFeEjw/aoymbND/tLNs0v/q8SpSvj3qkuEK23fIUsSoq4JypHvQwO8fmH/3oX5vqF/ 2wN1eiJ/0tW6tgL/1oZ9wcU/3sG5tfN/2wP5hxW/4yJ8ubR/4xP2inX/0xV2gyL/2nT7gsA/4cR4ffS/ 4gP4cxX/4pT1jxP/3fY3aaZ/0dY8roD/5uG4dqM/5j D7naQ/6nW3wsJ/8xO1otT/4sO3sfK/6wJ1cpT/7yJ4luA/7wF0zyV/9kD3lxU/6vO3exT/0uH8nhN/5j D7naQ/8yY9jnK/2jK3njT/4tD9coW/2xB5mqF/3gP3jsQ/5sE9mpB/5jD/XcGum2IT/W0AIxOYtTxoGe TlkjT0mveeZiLI6TilS9KldoPaFegPm2d1V7dq1kfU 8zy3my67J7RxvDxF5V37V4AQ5t25R6UgmUuW5R57O6TF1t57V7FxoQfE8H98K4OE9m02B4FkxOhW6j95 O0MV9y79F1UesDiD5c23G9AL5n77V6FsfcxN0K5bD7BTOvN6T3M8pvxD7O8lL5ESRnQ0T1YDMQjr/Q9g rkx0B0vEKbeP3s5EtdY6t4LfrL7r0H9fY0E5A9nz1M sC0mq6KwT1ni6Thigbb4RrxgSA2IdmcX84JeyoN1mMSqvC3t6BlwC3j8JgdF3h0A5lvgw6A9CK1Q2LLT bc/I7cfdn0Z6NO4V4NPJmv/P9uzvz3Z4KN1S8RPdwm/Z6rvqf4P2NP3E3jAnpt/G1ommn5J8HJ8V6uHy bc/R4wetn7M4BRw3EIcwa3H9JuAL5mmJG1X2yWWEKi sWUBLwbQ6Z0nrHtqJtr+eJmtowzC5B+4q1d0b0jBDMWganpO5G+6d1o0x1yLTowf5LzejJE1SxvrnN1W ivFoELK4EQIAXFyrUcSWpqUptPLBokTAzNiWACdggdBlBMvPRMIZPqwWvXExbPMciBLYqVzqnwrzobGo PGzLenpJUM7AslwpTEn4MMxZLDooTqPVedJdhZU3au WjeFmsNTn8dUSyPWiXUjOGDfzXpFSgzWH5qCVQgRoxstkardJmdYvApopOqO2W2hGtzMh1OAcNTX3aWr uXhzFuhMUOmqSduDz45Ora32sNWv3Auj4T9+MOISÉS/2lDxjc9OJwUsh6a5fhGfi7+4HVF6EOgctN8V3JcH [file] VGHvCkpuGx0mqBW8WBGgHkrOVa1Ye0QvprS2yfRzRoM3XeS5MfIeUN5H ID Date Data Source [id number] 02/04/2020 12:06:53 PM EDT [facility] NT INFORMATIONPatient MRN Name Date of Age Gend*PT [id number] MildredNick lambert 1990 29 years M OPPT Location Admission Date/Time Visit ID Attending Provider --- --- --- Robert Tamayo MD([id number]) EPI ID CSN Admitting Provider [id number] ---OUTPATIENT / OBSERVATIONAL SURGICAL OR INVASIVE PROCEDUREName: Nick Trujillo : 1990 Sex: male Care Provider: Roque MOONEY Physician: Dr. Tamayo.HISTORY OF PRESENT ILLNESS: 29 years old white male with previous incisionalhernia repair. The Patient now has recurrence of the abdominal pain in theumbilical area. He denies any nausea, vomiting, fever, change in bowel habits,constipation..PAST MEDICAL HISTORY:Past Medical History:Diagnosis Date Advanced Airway Equipment Used Asthma COPD (chronic obstructive pulmonary disease) Depression GERD (gastroesophageal reflux disease) Hypertension Incisional hernia with obstruction, without gangrene Morbid obesity Seizures Sleep apnea CPAPPAST SURGICAL HISTORY:Past Surgical History:Procedure Laterality Date APPENDECTOMY CHOLECYSTECTOMY COLON SURGERY HERNIA REPAIR N/A 12/25/2018 Procedure: REPAIR HERNIA INCISIONAL LAPAROSCOPIC W XI ROBOT[employer]; Surgeon:Robert Tamayo MD; Laterality: N/A; TONSILLECTOMY URETEROPYELOSTOMY 1988ALLERGIES:AllergiesAllergen Reactions Dilantin [Phenytoin Sodium Extended] Nausea And Vomiting Tylenol [Acetaminophen] Nausea And Vomiting Aleve [Naproxen] RashMEDICATIONS:Prior to Admission medicationsMedication Sig Start Date End Date Taking? Authorizing Provideralbuterol (PROVENTIL HFA;VENTOLIN HFA) 108 (90 Base) MCG/ACT inhaler Inhale 2puffs every 4 (four) hours as needed for shortness of breath HistoricalProvider, MDalbuterol (PROVENTIL) (2.5 MG/3ML) 0.083% nebulizer solution Take 2.5 mg bynebulization every 6 (six) hours as needed for shortness of breath HistoricalProvider, MDcetirizine (ZYRTEC) 10 MG tablet Take 10 mg by mouth daily HistoricalProvider, MDdesvenlafaxine (PRISTIQ) 100 MG 24 hr tablet Take 100 mg by mouth dailyHistorical Provider, MDdocusate sodium 100 MG CAPS Take 1 capsule (100 mg total) by mouth 2 (two) timesa day 12/25/18 Jeff Barber, AMRITdoxycycline (VIBRAMYCIN) 50 MG capsule Take 50 mg by mouth daily HistoricalProvider, MDformoterol (PERFOROMIST) 20 MCG/2ML nebulizer solution Take 20 mcg bynebulization every 12 (twelve) hours Historical Provider, gabapentin (NEURONTIN) 100 MG capsule Take 100 mg by mouth nightlyHistorical Provider, gemfibrozil (LOPID) 600 MG tablet Take 600 mg by mouth 2 (two) times a daybefore meals Historical Provider, ibuprofen (ADVIL,MOTRIN) 600 MG tablet Take 600 mg by mouth every 8 (eight)hours as needed for pain Historical Provider, levETIRAcetam (KEPPRA) 500 MG tablet Take 500 mg by mouth 2 (two) times a dayHistorical Provider, lisinopril-hydrochlorothiazide (PRINZIDE,ZESTORETIC) 20-25 MG per tablet Take 1tablet by mouth daily Historical Provider, Cherylethocarbamol (ROBAXIN) 750 MG tablet Take 750 mg by mouth 2 (two) times a dayas needed (for pain) Historical Provider, Cherylirtazap ine (REMERON) 15 MG tablet Take 15 mg by mouth nightly HistoricalProvider, Cherylontelukast (SINGULAIR) 10 MG tablet Take 10 mg by mouth nightly HistoricalProvider, omeprazole (PRILOSEC) 40 MG capsule Take 40 mg by mouth 2 (two) times a dayHistorical Provider, CHELSIEUMAtriptan (IMITREX) 100 MG tablet Take 100 mg by mouth at onset of headache.May repeat once after 2 hours if needed. Historical Provider, topiramate (TOPAMAX) 200 MG tablet Take 200 mg by mouth 2 (two) times a dayHistorical Provider, Umeclidinium [place] (INCRUSE ELLIPTA) 62.5 MCG/INH AEPB Inhale 1 puff dailyHistorical Provider, MDPARoxetine (PAXIL) 30 MG tablet Take 30 mg by mouth every morning 02/04/20Historical Provider, CHELSIEocial HistoryTobacco Use Smoking status: Never Smoker Smokeless tobacco: Never UsedSubstance Use Topics Alcohol use: No Drug use: NoHistory reviewed. No pertinent family history.REVIEW OF SYSTEMS:Respiratory: Denies any shortness of breath, cough, yellow sputum production orwheezing.Cardiovascular: Denies any chest pain, pressure or tightness. Denies anyparoxysmal nocturnal dyspnea or orthopnea.GI: Denies nausea, vomiting, diarrhea, constipation or melena.Neurologic: Denies any numbness, tingling, tremors or syncope.Vascular: Denies any edema. Denies claudication.PHYSICAL EXAM:GENERAL: He is a 29 years old, pleasant white male, in no acute distress at timeof examination. Vitals on arrival to the office are There were no vitals takenfor this visit. There is no height or weight on file to calculate BMI..Skin is pink, warm, and dry.NECK: He has a grade +3 airway. Neck is supple, midline, without cervicaladenopathy. No thyromegaly. No carotid bruits.MENTAL / NEUROLOGICAL STATUS: [id number]: Clear to auscultation. No wheezes, rhonchi or crackles.HEART: Rate rhythm regular. S1, S2. No murmur, rub or gallop.ABDOMEN: Bowel sounds positive times four. Soft, non tender. No reboundtenderness. No hepatosplenomegaly. Negative CVAT.EXTREMITIES: Pulses are symmetrical. No edema.OPERATIVE SITE: No rash or erythema.Anesthesia complications: Advanced airway equipment requiredCSHA Frailty Scale :: 4/10 Vulnerable (while not dependent on others for dailyhelp, often symptoms limit activities. A common complaint is being "slowed up",and /or being tired during the day).Stop Bang Questionnaire - Total Score:ASSESSMENT: Primary Diagnosis/Indication: Incisional hernia with obstruction,without gangrene.PLAN: Procedure: Laparoscopic incisional hernia repair.02/04/2020 12:06 Javier Whyte document or parts of this document, were dictated using [employer] software. A reasonable attempt at proofreading has beenmade to minimize errors. Please call with any questions or corrections.* Name Value Range Interpretation Code Description Data Giovana rce(s) Supporting Document(s) ID Date Data Source [id number] 02/04/2020 05:52:41 PM EDT [facility] Name Value Range Interpretation Code Description Data Giovana rce(s) Supporting Document(s) SODIUM 140 mmol/L (136-145) [facility] POTASSIUM 4.0 mmol/L (3.6-5.2) [facility] CHLORIDE 106 mmol/L (100-108) [facility] CO2 25 mmol/L (22-31) [facility] ANION GAP 9 mmol/L (7-16) [facility] UREA NITROGEN 13 mg/dL (7-24) [facility] CREATININE 1.08 mg/dL (0.80-1.30) [facility] BUN/CREAT RATIO 12.0 RATIO (10.0-20.0) [facility] GLUCOSE 100 mg/dL (70-99) H [facility] CALCIUM 9.2 mg/dL (8.4-10.2) [facility] GFR >60 ml/min/1.73m2 (>59) [facility] GFR ( AMER) >60 ml/min/1.73m2 (>59) [facility] GFR INTERPRETATION [facility] --NORMAL KIDNEY FUNCTION OR MILD DISEASE - GFR >OR= 60CHRONIC KIDNEY DISEASE - GFR 15 - 59RENAL FAILURE - GFR <15 Est. GFR calculation based on the MDRDstudy equation, which assumes a steadystate for creatinine. Est. GFR should notbe used for medication dosing. ID Date Data Source [id number] 02/04/2020 05:35:33 PM EDT [facility] Name Value Range Interpretation Code Description Data Giovana rce(s) Supporting Document(s) WBC 9.2 10*3/uL (4.1-11.0) [facility] RBC 5.75 10*6/uL (4.60-6.10) [facility] HGB 16.6 g/dL (13.5-18.0) [facility] HCT 51.0 % (41.0-53.0) [facility] MCV 88.8 fL (80.0-95.0) [facility] MCH 28.8 pg (27.0-32.0) [facility] MCHC 32.5 g/dL (32.0-36.0) [facility] RDW 14.8 % (10.5-14.5) H [facility] PLT 233 10*3/uL (150-450) [facility] MPV 8.4 fL (7.1-10.7) [facility] ID Date Data Source [id number] 02/04/2020 09:45:00 AM EDT [facility] Name Value Range Interpretation Code Description Data Giovana rce(s) Supporting Document(s) SARS coronavirus 2 RNA [facility] This lab was ordered by [facility] and reported by [facility]. ID Date Data Source [id number] 02/05/2020 07:07:45 PM EDT [facility] Name Value Range Interpretation Code Description Data Giovana rce(s) Supporting Document(s) SARS-COV-2 [facility] Not DetectedReference range: Not Detecte d Testing was performed using the hailey(R) SARS-CoV-2 test. This test was developed and its performance characteristics determined by [employer]. This test has not been FDA cleared or approved. This test has been authorized by FDA under an Emergency Use Authorization (EUA). This test is only authorized for the duration of time the declaration that circumstances exist justifying the authorization of the emergency use of in vitro diagnostic tests for detection of SARS-CoV-2 virus and/or diagnosis of COVID-19 infection under section 564(b)(1) of the Act, 21 U.S.C. 360bbb-3(b)(1), unless the authorization is terminated or revoked sooner. When diagnostic testing is negative, the possibility of a false negative result should be considered in the context of a patient's recent exposures and the presence of clinical signs and symptoms consistent with COVID-19. An individual without symptoms of COVID-19 and who is not shedding SARS-CoV-[address] to have a negative (not detected) result in this assay. Performed At: [address] [id number] Job Henson MD Ph:[phone] ID Date Data Source [id number] 01/31/2020 01:46:00 PM EDT [facility] A [facility] WO IV CONTRASTCLINICAL HISTORY: Right upper quadrant pain.COMPARISON: None available.TECHNIQUE: CT of the abdomen/pelvis without contrast in the axial, coronal and sagittal planes.FINDINGS: Small hiatal hernia. Lung bases clear. Gallbladder collapsed versus absent. The liver, pancreas, spleen, adrenals and kidneys are unremarkable. No biliary ductal dilatation. No renal calculi or hydronephrosis. No ascites, free air, fluid collection or adenopathy in the abdomen. Visualized bowel is unremarkable. Mild degenerative disc disease in the spine. Partially visualized fat containing periumbilical hernia measuring up to 6.3 cm transverse by 3.8 cm AP with neck of hernia measuring approximately 4.6 cm transverse. Inferior extent of hernia was not imaged.IMPRESSION: Partially visualized fat containing periumbilical hernia as above. Inferior extent of hernia was not imaged. Further evaluation with a noncontrast CT of the abdomen and pelvis can be performed as clinically warranted.Dictated by: DONG CARLIN M.D. on 01/31/2020 Transcribed by: arpita on <<TranscriptionDateTime1>>CDS G code: ,CDS Modifier: ,cc: Name Value Range Interpretation Code Description Data Giovana rce(s) Supporting Document(s) ID Date Data Source [id number] 01/27/2020 11:08:00 AM EDT [facility] 1 OrderSheet [facility] Emergency Department [address] [place] [address] Phone #: ext- [phone] 01/27/2020 11:08 Patient: NICK TRUJILLO Sex: M : 1990 Age: 29yWEIGHT:181.4 kg (M) HEIGHT:71 inches (S) BMI:55.8ALLERGIES: Dilantin, Naproxsyn, Tylenol with codeinCHIEF COMPLAINT: abdominal painDIAGNOSIS: Abdominal pain, Hernia of abdominal cavityLAB ORDERSOrder Description Priority Entered Acknowledged InitialedCBC w Diff STAT 11:01/27/2020 11:15 Milagros Valdez MD; Bhanu RNCMP STAT 11:01/27/2020 11:15 Milagros Valdez MD; Bhanu ESPINOZALactic Acid STAT 11:01/27/2020 11:15 Milagros Valdez MD; Bhanu ESPINOZAUrinalysis (Clean STAT 11:01/27/2020 12:29 Onelia) Milagros Morse MD; Bhanu ESPINOZALipase STAT 11:14 01/27/2020 11:15 Milagros Valdez MD; Bhanu ESPINOZADIAGNOSTIC STUDY ORDERSOrder Description Priority Entered Acknowledged InitialedCT Abd PEL W/ IV STAT 11:14 01/27/2020 11:15 TerryContrast Only Milagros Morse MD; Bhanu ESPINOZA(Oxygen?(No))(IV?(Yes)) NOTES: supraumbilical pain, hx of hernia Reason for Study: Abdominal PainMEDICATION/IV/DRIP/FLUID ORDERSOrder Description Priority Entered Acknowledged InitialedGENERAL ORDERSOrder Description Priority Entered Acknowledged Initialed[Electronically signed by Jennifer Russell R.N. (13:46 01/27/2020)][Electronically signed by Milagros Morse MD (00:50 01/28/2020)][Electronically locked by Jennifer Russell R.N. (13:46 01/27/2020)] Name Value Range Interpretation Code Description Data Giovana rce(s) Supporting Document(s) ID Date Data Source [id number] 01/27/2020 11:08:00 AM EDT [facility] 1 Medication Reconciliation Report [facility] Emergency Department [address] [place] [address] Phone #: ext- [phone] 01/27/2020 11:08 Patient: NICK TRUJILLO Sex: M : 1990 Age: 29yWeight: 181.4 kgHeight/Length: 71 in.BMI: 55.8ALLERGIES: Dilantin, Naproxsyn, Tylenol with codeinThe patient's Home Medications are listed below:CONTINUE TAKING THE FOLLOWING MEDICATIONS: Albuterol Sulfate Inhalation, prn Incruse Ellipta Inhalation, daily Keppra Oral Lisinopril- hydroCHLOROthiazide Oral (20-25 mg), daily Lopid Oral (600 mg), 2x a day Mobic Oral, daily Perforomist Inhalation (20 mcg/2mL), q4h Pristiq Oral (50 mg), daily Singulair Oral 10 mg, daily Stool Softener Oral (100 mg), daily Sucralfate Oral 1 gm, 4x a day SUMAtriptan Succinate Oral (100 mg), daily Theophylline Oral 400 mg, 2x a day Topamax Oral, daily Zofran ODT Oral, prn 2 Medication Reconciliation Report [facility] Emergency Department [address] [place] [address] Phone #: ext [phone] 01/27/2020 11:08 Patient: NICK TRUJILLO Sex: M : 1990 Age: 29yThe source(s) of the original Home Medication information:Not obtained.The following Medications were given to the patient in the Emergency Department:None.The following Medications were prescribed to the patient:None. Name Value Range Interpretation Code Description Data [facility](s) Supporting Document(s) ID Date Data Source [id number] 01/27/2020 11:08:00 AM EDT [place] [address] Medication Administration Record [facility] Emergency Department [address] [place] [address] Phone #: ext [phone] 01/27/2020 11:08 Patient: NICK TRUJILLO Sex: M : 1990 Age: 29yWeight: 181.4 kgHeight/Length: 71 inBMI: 55.8ALLERGIES: Dilantin, Naproxsyn, Tylenol with codeinDate/Time Medication Administered Medication Ordered Name Value Range Interpretation Code Description Data Giovana rce(s) Supporting Document(s) ID Date Data Source [id number] 01/27/2020 11:08:00 AM EDT [facility] 1 General Instructions [facility] Emergency Department [address] [place] [address] Phone #: ext- [phone] 01/27/2020 11:08 Patient: NICK TRUJILLO Sex: M : 1990 Age: 29yChronic abdominal pain.No generalized abdominal pain, epigastric pain or suprapubic pain.Umbilical hernia. No obstruction or gangrene.INSTRUCTIONSNo strenuous activity.Drink plenty of fluids.(Please follow up with your primary care physician and your surgeon for your chronic abdominal pain andyour pain where you have your hernia. Take tylenol and motrin for pain if you are not allergic to thesemedicines. return if worse or any new symptoms. Avoid lifting any heavy objects. please also follow upwith your doctor regarding your cyst to your kidneys. you need continued observation of this cyst.).Warnings: Further evaluation is necessary.Your Current Medications: Your current home medications have been reviewed.CONTINUE TAKING THE FOLLOWING MEDICATIONS:Albuterol Sulfate Inhalation : prn.Incruse Ellipta Inhalation : daily.Keppra Oral.Lisinopril- hydroCHLOROthiazide Oral : Tablet 20-25 mg, daily.Lopid Oral : Tablet 600 mg, 2x a day.Mobic Oral : daily.Perforomist Inhalation : Nebulization Solution 20 mcg/2mL, q4h.Pristiq Oral : Tablet Extended Release 24 Hour 50 mg, daily.Singulair Oral : 10 mg daily.Stool Softener Oral : Capsule 100 mg, daily.Sucralfate Oral : 1 gm 4x a day.SUMAtriptan Succinate Oral : Tablet 100 mg, daily.Theophylline Oral : 400 mg 2x a day.Topamax Oral : daily.Zofran ODT Oral : prn.Follow-up:Follow up with doctor in days even if well. Summary of care provided to patient via paper.Understanding of the discharge instructions verbalized by patient. 2 General Instructions [facility] Emergency Department [address] [place] [address] Phone #: ext- [phone] 01/27/2020 11:08 Patient: NICK TRUJILLO Sex: M : 1990 Age: 29y ADDITIONAL INFORMATIONHernia (Adult)A hernia can happen when there is a weakness or defect in the wall of the abdomen orgroin. Intestines or nearby tissues may move from their usual location and push through theweakness in the wall. This can cause a hernia (bulge) you may see or feel.Causes and risk factorsA hernia may be present at . Or it may be caused by the wear and tear of daily living. Certainfactors can make a hernia more likely. These can include: Heavy lifting Straining, whether from lifting, movement, or constipation Chronic cough 3 General Instructions [facility] Emergency Department [address] [place] [address] Phone #: ext- [phone] 01/27/2020 11:08 Patient: NICK TRUJILLO Sex: M : 1990 Age: 29y Injury to the abdominal wall Excess weight Prior surgery Older age Family history of herniaSymptomsSymptoms of a hernia may come on suddenly. Or they may appear slowly over time. Some commonsymptoms include: Bulge in the groin area, around the navel, or in the scrotum (the bulge may get bigger when you stand and go away when you lie down) Pain or pressure around the bulge Pain during activities such as lifting, coughing, or sneezing A feeling of weakness or pressure in the groin Pain or swelling in the scrotumTypes of herniasThere are different types of hernia. The type you have depends on its location: Inguinal. This type is in the groin or scrotum. It is more common in men. But, women can get this hernia, too. Femoral. This type is in the groin, upper thigh (where the leg bends), or labia. It is more common in women. Ventral. This type is in the abdominal wall. Umbilical. This type occurs around the navel (belly button). Incisional. This type occurs at the site of a previous surgery.The condition of the hernia can help determine how urgently it needs to be treated. Reducible. It goes back in by itself, or it can be pushed back in. Irreducible. It can't be pushed back in. 4 General Instructions [facility] Emergency Department [address] [place] [address] Phone #: tch- [phone] 01/27/2020 11:08 Patient: NICK TRUJILLO Sex: M : 1990 Age: 29y Incarcerated/strangulated. The intestine is trapped (incarcerated). If this h appens, you won't be able to push the bulge back in. If the incarcerated hernia isn't treated, it may become strangulated. This means the area loses blood supply and the tissue may . This requires emergency surgery. You need treatment right away.In most cases, a hernia will not heal on its own.You may need surgery to repair the defect in theabdominal wall or groin. You'll be told more about surgery, if needed.If your symptoms are not severe, treatment may sometimes be delayed. In such cases, you will needregular follow-up visits with the provider. You'll be asked to keep track of your symptoms and to watchfor signs of more serious problems. You may also be given guidelines similar to the home careinstructions below.Home careTo help keep a hernia from getting worse, you may be advised to: Avoid heavy lifting and straining as directed. Take steps to prevent constipation, such as eating more fiber and drinking more water. This may help reduce straining that can occur when havin g a bowel movement. Reducing straining may help keep your symptoms from getting worse. Maintain a healthy weight or lose excess weight. This can help reduce strain on abdominal muscles and tissues. Stop smoking. This can help prevent coughing that may also strain abdominal muscles and tissues.Follow-up careFollow up with your healthcare provider, or as directed. If imaging tests were done, they will bereviewed a doctor. You will be told the results and any new findings that may affect your care.When to seek medical adviceCall your healthcare provider right away if any of these occur: Hernia hardens, swells, or grows larger Hernia can no longer be pushed back in Pain moves to the lower right abdomen (just below the waistline), or spreads to the backCall [phone] General Instructions [facility] Emergency Department [address] [place] [address] Phone #: ext- [phone] 01/27/2020 11:08 Patient: NICK TRUJILLO Sex: M : 1990 Age: 29yCall 911 if any of these occur: Severe pain, redness, or tenderness in the area near the hernia Pain worsens quickly and doesn't get better Inability to have a bowel movement or pass gas Fever of 100.4F (38C) or higher, or as directed by your healthcare provider [id number] [employer]. [address] [place] [address], [place] [address]. All rights reserved. This information is not intended as asubstitute for professional medical care. Always follow your healthcare professional's instructions. You have been given the following additional information: Hernia (Adult) No strenuous activity.(Electronically signed by Milagros Morse MD 01/28/2020 00:50) Name Value Range Interpretation Code Description Data Giovana rce(s) Supporting Document(s) ID Date Data Source [id number] 01/27/2020 11:08:00 AM EDT [facility] 1 Clinical Report - Nurses [facility] Emergency Department [address] [place] [address] Phone #: [phone]- [phone] 01/27/2020 11:08 Patient: NICK TRUJILLO Sex: M : 1990 Age: 29yTRIAGEHistorian: patient.Triage time: 11:10 01/27/2020. Acuity: LEVEL 3.Chief Complaint: ABDOMINAL PAIN.Alert. No acute distress.( pt c/o abd pain off and on for a year since having an umbilical hernia repair. The pain got worse thismorning. denies n/v/d. pt c/o pain at old surgical site.).SEPSIS SCREEN: Sepsis Screen negative. No suspected or confirmed signs of infection present. --11:147 [facility]11:10 01/27/20. BP: 112/77. MAP: 88. HR: 95. RR: 20. O2 saturation: 98%. Temp: 99 F (oral). Pain levelnow: 8/10. --11:14 01/27/20 KishaOctober, R.N.Weight: 181.4 kg measured. Height/Length: 71 inches Per Patient. BMI: 55.8. --11:10 01/27/20 [facility], October,R.N.MedicationsAlbuterol Sulfate Inhalation, as needed. Incruse Ellipta Inhalation, daily. Lisinopril- hydroCHLOROthiazide Oral (Tablet 20-25 mg), daily. Lopid Oral (Tablet 600 mg), 2x a day. Mobic Oral, daily. Perforomist Inhalation (Nebulization Solution 20 mcg/2mL), q4h. Pristiq Oral (Tablet Extended Release 24 Hour 50 mg), daily. Singulair Oral 10 mg, daily. Stool Softener Oral (Capsule 100 mg), daily. Sucralfate Oral 1 gm, 4x a day. SUMAtriptan Succinate Oral (Tablet 100 mg), daily. Theophylline Oral 400 mg, 2x a day. Topamax Oral, daily. Zofran ODT Oral, as needed. --11:01/27/20OctoberGaby. Keppra Oral. --11:01/27/20October, Gaby.AllergiesDilantin.Naproxsyn.Tylenol with codein. --11:01/27/20OctoberGaby. 2 Clinical Report - Nurses [facility] Emergency Department [address] [place] [address] Phone #: ext- [phone] 01/27/2020 11:08 Patient: NICK TRUJILLO Sex: M : 1990 Age: 29y PROBLEMS: Renal Colic. Asthma. Hematuria. Seizure. --11:01/27/20 Kisha OctoberGaby. ADDITIONAL SURGERIES: Hernia Repair. Umbilical Hernia Repair. --11:01/27/20 Kisha AlyshaGaby. History SOCIAL HX: Never smoker. No alcohol use or drug use. He was offered HIV testing but declined. He has not traveled outside the [place] Infectious disease exposure: No infectious disease exposure. (covid screen neg). Patient is not a known carrier of tuberculosis, hepatitis, HIV, MRSA or VRE. Patient is not a known carrier of CRE. SELF HARM ASSESSMENT: Self harm assessment was performed. The patient answered "no" to the question(s) "Have you recently felt down, depressed, or hopeless?", "Do you have thoughts of harming or killing yourself?", "Do you have a plan for harming or killing yourself?", "Have you recently had thoughts about harming or killing others?", "Do you have any dangerous items in your possession?", "Have you noticed less interest or pleasure in doing things?", "Are you here because you tried to hurt yourself?" and "Have you ever tried to hurt yourself before today?". ABUSE ASSESSMENT: Abuse assessment. yes. The patient had positive responses to the question(s) "Do you feel safe in your home?". No report of abuse. NUTRITIONAL RISK ASSESSMENT: The nutritional risk assessment revealed no deficiencies. FUNCTIONAL ASSESSMENT: Functional assessment: no impairments noted. LEARNING NEEDS ASSESSMENT: The learning needs assessment revealed no barriers. FALL RISK ASSESSMENT: Fall risk assessment completed. No risk factors identified. SKIN INTEGRITY ASSESSMENT: Skin integrity risk assessment completed. No skin integrity risk identified. --11:14 01/27/20 Alysha Borden R.N. Interventions To treatment room. --11:01/27/20 Alysha Borden R.N.PHYSICAL KDYUKUCETN02:15 01/27/20. To room via stretcher.GENERAL / NEURO / PSYCH: Alert. Oriented X 4. Appears in no acute distress. Appears in pain.RESPIRATORY: Respirations not labored. Breath sounds within normal limits. 3 Clinical Report - Nurses [facility] Emergency Department [address] [place] [address] Phone #: ext- [phone] 01/27/2020 11:08 Patient: NICK TRUJILLO Sex: M : 1990 Age: 29y CVS: Capillary refill less than 2 seconds. GI / : Abdomen soft and nontender. Bowel sounds within normal limits. SKIN: Skin is warm and dry. --11:15 01/27/20 Phillip Drummond RN.NURSING PROGRESS NOTESHead of bed elevated. Reassurance given. Two patient identifiers checked. Bed placed in lowestposition. Brakes of bed on. Patient ready for evaluation- ED physician and PA notified. --11:01/27/20Alysha Borden R.N. 11:16 01/27/20. Call light placed in reach. --11:16 01/27/20 Phillip Drummond RN Checked patient name and birthdate. Blood samples drawn from the left antecubital space by tech. ([id number]). --11:52 01/27/20 Phillip Drummond RN 11:43 01/27/2020 Two (2) unsuccessful IV access attempts including the left forearm. --11:53 01/27/20 Phillip Drummond RN 11:56 01/27/2020 Site #1 started via IV in the right antecubital space with an 20g angiocath, with aseptic technique and good blood return; one attempt. Saline lock flushed with 10 mL saline. --11:56 01/27/20 Alysha Borden RShayN. Patient transported to [place] by wheelchair with waste transportation technician. ([id number]). --12:01 01/27/20 Phillip Drummond RN Checked patient name and birthdate: patient confirmed. Clean catch urine collected; sample sent to lab for urinalys is. Specimen labeled in the presence of the patient ([id number]). Patient returned from [place] by wheelchair with waste transportation technician. ([id number]). --12:29 01/27/20 Phillip Drummond RN 11:40 01/27/20. BP: 115/81. MAP: 92. HR: 91. O2 saturation: 100% on room air. --12:49 01/27/20 Phillip Drummond RN 12:46 01/27/20. BP: 104/49. MAP: 67. HR: 90. O2 saturation: 96% on room air. --12:50 01/27/20 Phillip Drummond RN 13:28 01/27/2020 Site #1 removed upon discharge. Pressure dressing applied. --13:28 01/27/20 Jennifer Russell, R.N.DISPOSITION / DISCHARGE Condition at departure: unchanged. No learning barriers present. Discharge instructions provided and reviewed with the patient. Reviewed medication(s) (continue medications from home). Reviewed fever care instructions. Patient verbalized understanding. Written instructions provided in Albanian. The patient was discharged home and unaccompanied at time of discharge. He left ambulatory and via private vehicle. Driving (unknown). --13:30 01/27/20 Jennifer Russell R.N. 13:28 01/27/20. BP: 106/46. MAP: 66. HR: 83. RR: 20. O2 saturation: 96% on room air. Temp: 98.2 F 4 Clinical Report - Nurses [facility] Emergency Department [address] [place] [address] Phone #: ext- [phone] 01/27/2020 11:08 Patient: NICK TRUJILLO Sex: M : 1990 Age: 29y (oral). Pain level now: 04/06. --13:30 01/27/20 Jennifer Russell R.N. Activity restrictions reviewed (no strenous activity). --13:30 01/27/20 Jennifer Russell R.N. ( pt decided to walk home instead of waiting for a media[employer] cab). --13:46 01/27/20 Jennifer Russell R.N. Departure time: 13:46 01/27/2020. --13:46 01/27/20 Jennifer Russell R.N.Locked/Released at 01/27/2020 13:46 by Jennifer Russell R.N. Name Value Range Interpretation Code Description Data Giovana rce(s) Supporting Document(s) ID Date Data Source [id number] 01/27/2020 11:08:00 AM EDT [facility] 1 Clinical Report - Physicians/Mid Levels [facility] Emergency Department [address] [place] [address] Phone #: ext- [phone] 01/27/2020 11:08 Patient: NICK TRUJILLO Sex: M : 1990 Age: 29y Arrived- By ambulance. Historian- patient. Not EMS personnel. Disposition decision: 13:16 01/27/2020.HISTORY OF PRESENT ILLNESS Chief Complaint: ABDOMINAL PAIN. It is described as located in the periumbilical area. This started 1 years ago and is still present. It has been constant. Modifying factors- worsened by movement. Not relieved by anything. No nausea, loss of appetite, vomiting or diarrhea. (29 y/o M presents with periumbilical pain that he states has been constant for the past year s/p umbilical hernia repair. Pt reports pain is constant and worsened with movement, and nothing improves the pain. Pt is also complaining of sharp chest pain localized to midsternal area, that began about 3 days ago. Pt admits to similar prior episodes of chest pain that come on and resolve spontaneously, but worsened with exertion. Denies any SOB, recent traum a, N/V/D, fever, urinary sx.). No recent travel. Similar symptoms previously. Patient has had similar symptoms chronically.REVIEW OF SYSTEMSNo constipation, black stools, hematemesis or difficulty with urination or urination. No pain with urination,urinary frequency or urinary frequency, bloody stools or fever. No headache, sore throat or throat orblurred vision. No chest pain or pain, difficulty breathing or cough. No joint pain or pain, skin rash or rashor chills. No back pain or pain, chills, fever or double vision. No eye irritation, ear pain, runny nose, calfpain or cough. No constipation, diarrhea, nausea, vomiting or dizziness. No headache or easy bruising.Last bowel movement: yesterday. The patient has had abdominal pain but not had weight loss.PAST HISTORYSee nurses notes. Problems: Renal Colic. Asthma. Hematuria. Seizure. Additional Surgeries: Hernia Repair. Umbilical Hernia Repair. Medications: Keppra Oral. Albuterol Sulfate Inhalation, as needed. Incruse Ellipta Inhalation, daily. 2 Clinical Report - Physicians/Mid Levels [facility] Emergency Department [address] [place] [address] Phone #: ext- [phone] 01/27/2020 11:08 Patient: NICK TRUJILLO [facility]#: [id number] Sex: M : 1990 Age: 29y Lisinopril-hydroCHLOROthiazide Oral (Tablet 20-25 mg), daily. Lopid Oral (Tabl et 600 mg), 2x a day. Mobic Oral, daily. Perforomist Inhalation (Nebulization Solution 20 mcg/2mL), q4h. Pristiq Oral (Tablet Extended Release 24 Hour 50 mg), daily. Singulair Oral 10 mg, daily. Stool Softener Oral (Capsule 100 mg), daily. Sucralfate Oral 1 gm, 4x a day. SUMAtriptan Succinate Oral (Tablet 100 mg), daily. Theophylline Oral 400 mg, 2x a day. Topamax Oral, daily. Zofran ODT Oral, as needed. Allergies: Dilantin. Naproxsyn. Tylenol with codein.SOCIAL HISTORYNever smoker. No alcohol use or drug use.ADDITIONAL NOTESThe nursing notes have been reviewed with agreement regarding the chief complaint, HPI, ROS, PMH andpatient medications and allergies.PHYSICAL EXAMVital Signs: 01/27/2020 11:10 BP: 112/77. MAP: 88. HR: 95. RR: 20. O2 saturation: 98%. Temp: 99 F.Pain level now: 8/10. Have been reviewed. Oxygen saturation normal.Appearance: Alert. Oriented X3. No acute distress.Eyes: Pupils equal, round and reactive to light. Eyes normal inspection.ENT: Ears normal. Nose normal.Neck: Normal inspection. Neck supple.CVS: Normal heart rate and rhythm. Heart sounds normal. Pulses normal. Pulses: right radial 2+; leftradial 2+.Respiratory: No respiratory distress. Mild upper and mid- sternal tenderness, right costochondraltenderness and left costochondral tenderness. The tenderness is diffuse and reproduces the patient'ssubjective complaint. Painless inspiration. Breath sounds normal. Good chest movement.Abdomen: Soft. Mild tenderness in the periumbilical area. No guarding, rebound tenderness or Schmid's,obturator or psoas sign present. Bowel sounds normal. No mass. Obese.Back: Normal inspection. No CVA tenderness.Skin: Skin warm and dry. Normal skin color. Normal skin turgor.Extremities: Extremities exhibit normal ROM. No lower extremity edema.Neuro: Oriented X 3. No motor deficit. No sensory deficit.LABS, X-RAYS, AND EKG 3 Clinical Report - Physicians/Mid Levels [facility] Emergency Department [address] [place] [address] Phone #: ext- [phone] 01/27/2020 11:08 Patient: NICK TRUJILLO Sex: M : 1990 Age: 29yLaboratory Tests:CBC w Diff: (KAVITA: 01/27/2020 11:27) ( MsgRcvd 01/27/2020 12:13) Final results Test Result Flag Units (Reference) CBC W/AUTOMATED DIFF COMPLETE BLOOD COUNT WBC 8.8 10/uL (4.2 - 11.0) RBC 5.61 10/uL (4.50 - 6.30) HEMOGLOBIN 15.9 g/dL (14.0 - 16.0) HEMATOCRIT 49.5 % (41.0 - 51.0) MCV 88.2 fL (80.0 - 94.0) MCH 28.3 pg (27.0 - 34.0) MCHC 32.1 g/dL (31.0 - 36.0) RDW 13.8 % (11.5 - 14.8) PLATELETS 197 10/uL (150 - 450) MPV 9.0 fL (7.4 - 10.4) NEUT 66.9 % (37.0 - 80.0) LYMPH 21.5 L % (25.0 - 40.0) MONO 8.4 H % (3.0 - 8.0) EOS 2.7 % (0.0 - 7.0) BASO 0.2 % (0.0 - 2.0) %IG 0.3 H % (0.0 - 0.0) %NRBC 0.0 % (0.0 - 0.0) #NEUT 5.91 10/uL (2.00 - 6.90) #LYMPH 1.90 10/uL (0.60 - 3.40) #MONO 0.74 10/uL (0.00 - 0.90) #EOS 0.24 10/uL (0.00 - 0.70) #BASO 0.02 10/uL (0.00 - 0.20) #IG 0.03 10/uL (0.00 - 0.10) #NRBC 0.00 10/uL (0.00 - 0.00) MANUAL DIFF NOT INDICATED RBC MORPH NOT INDICATEDCMP: (KAVITA: 01/27/2020 11:27) ( MsgRcvd 01/27/2020 12:26) Final results Test Result Flag Units (Reference) COMPREHENSIVE METABOLIC PANEL COMPREHENSIVE METABOLIC PANEL SODIUM 138 mEq/L (134 - 153) POTASSIUM 3.8 mEq/L (3.6 - 5.0) CHLORIDE 102 mEq/L (98 - 107) CO2 26 MEQ/L (22 - 30) GLUCOSE 102 MG/DL (65 - 110) BUN 10 MG/DL (7 - 21) CREATININE 1.0 MG/DL (0.7 - 1.5) BUN/CREAT 10 (8 - 27) TOTAL PROTEIN 7.4 G/DL (6.3 - 8.2) ALBUMIN 4.4 G/DL (3.9 - 5.0) GLOBULIN 3.0 GM/DL (2.4 - 3.2) A/G RATIO 1.5 (0.8 - 2.0) CALCIUM 9.3 MG/DL (8.4 - 10.2) TOTAL BILI <0.7 MG/DL (0.2 - 1.3) ALKALINE PHOS 96 U/L (38 - 126) SGOT/AST 18 U/L (5 - 40) SGPT/ALT 27 U/L (7 - 56) ANION GAP 10.0 mmol/L (8.0 - 16.0) AGE 29 yrs NON-AA GFR >60 mL/min AFR AMER GFR >60 mL/min 4 Clinical Report - Physicians/Mid Levels [facility] Emergency Department [address] [place] [address] Phone #: ext- [phone] 01/27/2020 11:08 Patient: NICK TRUJILLO Sex: M : 1990 Age: 29y Male GFR Interprentation 20-49 yrs >60 mL/min Ydxumr12-56 yrs >56 mL/min Normal 60-69 yrs >49 mL/min Normal 70- 79yrs>42 mL/min Normal 80 and above >35 mL/min Normal Female GFRInterpretation 20-39 yrs >60 mL/min Normal 40-49 yrs >58 mL/minNormal 50-59 yrs >51 mL/min Normal 60-69 yrs >45 mL/min Cignkm26-71 yrs >39 mL/min Normal 80 and above >32 mL/min NormalLactic Acid: (KAVITA: 01/27/2020 11:27) ( [facility] 12[facility]10) Final results Test Result Flag Units (Reference) LACTIC ACID 1.8 MMOL/L (0.2 - 2.2)Urinalysis: (KAVITA: 01/27/2020 12:10) ( MsgRcvd 01/27/2020 12:53) Final results Test Result Flag Units (Reference) URINALYSIS URINALYSIS SOURCE R COLOR yellow (NORMAL: Yello CLARITY clear (NORMAL: Clear SPEC GRAVITY 1.005 (1.001 - 1.030 pH 6.5 (5 - 9) GLUCOSE NORM (NORMAL: Negat BILIRUBIN NEG (NORMAL: Negat KETONE NEG (NORMAL: Negat PROTEIN NEG (NORMAL: Negat NITRITE NEG (NORMAL: Negat BLOOD NEG (NORMAL: Negat LEUK EST 25 (NORMAL: Negat UROBILINOGEN NOR (less than 1.0 MICROSCOPIC See Below WBC 0 - 1 (NORMAL: NONE EPITHELIAL FEW (NORMAL: NONECT Abd PEL W/ IV Contrast Only: (KAVITA: 01/27/2020 11:14) ( MsgRcvd 01/27/2020 13:01) In ProgressCT ABDReason(s): Abdominal PainTRANSPORTATION: S IV? IV?(Yes) O2? Oxygen?(No) Ro CMTS: supraumbilical pain, hx of hernia Exam CT ABD //T// PELVIS W/ IV ONLY [facility] [address] [place] [address] PHONE: [phone] FAX: [phone] Name .................. : GAVIOTA Madison Acct Number.................. : [id number] ROOM. ................. : TR-07 MR Number ................... : [id number] Stay type ............. : E/R Discharge Date......... ... : Admit Date ......... : 01/27/20 Admit Phys .................... : COONEYNORM Date of ....... : 1990 Family Phys ................... : HESTER HARD Phone .................. : [phone] Age ................................ : 29 Film# .................. .:[id number] Sex ................................. : M Unsigned transcriptions are preliminary reports and do not represent a medical or legal document CT ABD Reason(s): Abdominal Pain 5 Clinical Report - Physicians/Mid Levels [facility] Emergency Department [address] [place] [address] Phone #: ext- [phone] 01/27/2020 11:08 Patient: NICK TRUJILLO Sex: M : 1990 Age: 29yCT SCAN OF THE ABDOMENComparison is made to a prior study from 10/21/2019.FINDINGS:The visualized portions of the lung bases are clear. No focal infiltrate or consolidation isidentified. The heart, liver, spleen, pancreas, adrenal glands, and right kidney appearunremarkable. The gallbladder is not clearly visualized on today's examination. The left kidneydemonstrates a cyst at the mid pole laterally measuring 1.7 cm. On this post-contrast study, theHounsfield units measure 33. On the previous CT scan from 10/21/2019, the Hounsfield units onthat unenhanced study measured 19 Hounsfield units. Surgical piyush are present in the rightlower quadrant, suggesting a prior appendectomy. Clinical correlation is recommended. There mar ventral hernia identified containing omental fat. The opening measures 3.7 cm. This has notsignificantly changed since the previous examination. No free fluid is identified in the pelvis.Urinary bladder appears unremarkable. Osseous structures appear unremarkable.IMPRESSION:Left renal cyst as discussed above. Ventral hernia without significant change. This containsomental fat.While performing the above CT examination, radiation dose reduction was accomplishedutilizing automated exposure control, adjusting of the mA and kV based on the patient's bodysize and/or the use of imperative reconstructive techniques.CT dose 2741 mGycm.Contrast agent in mL: 100 mL Isovue 370Method of administration: Intravenous [address] [place], [place] [address] [place], [place] [address]PHONE: [phone] FAX: [phone] .................. : GAVIOTA Madison Acct Number.................. : [id number]. ................. : TR-07 MR Number ................... : [id number] type ............. : E/R Discharge Date......... ... :Admit Date ......... : 01/27/20 Admit Phys .................... : COONEYNORMDate of ....... : 1990 Family Phys ................... : HESTER HARDPhone .................. : [phone] Age ................................ : 29Film# .................. .:[id number] Sex ................................. : MUnsigned transcriptions are preliminary reports and do not represent a medical or legal document CT ABD Reason(s): Abdominal PainExamination dictated by CLYDE Gallego. Examination was reviewed with Cortez Rice MD, radiologist at the time of this dictation. Electronically Reviewed and Signed ByDCTNAME , SIGNDATEJASMINA 6 Clinical Report - Physicians/Mid Levels [facility] Emergency Department [address] [place] [address] Phone #: ext- [phone] 01/27/2020 11:08 Patient: NICK TRUJILLO Sex: M : 1990 Age: 29y Transcribe Initials: SSR, Transcribe Date: 01/27/20 12:55, Dictation Date: <<REPDIST>> Page 2 of 2 Lipase: (KAVITA: 01/27/2020 11:27) ( MsgRcvd 01/27/2020 12:26) Final results Test Result Flag Units (Reference) LIPASE 29 U/L (13 - 60).PROGRESS AND PROCEDURESCourse of Care: pt presents for evaluation of his chronic periumbilical pain. his exam shows anon-surgical abdomen. labs grossly nl. his ct shows no acute findings. he did have a right renal cyst. Idiscussed this with the patient. Pt encouraged to f/u with pcp for this. I also encouraged him to f/u withhis surgeon for his chronic abdominal pain. pt voiced understanding of these instructions and encouragedto f/u with pcp. Patient/family counseled. Disposition: Discharged home in good condition. Condition: good and stable.CLINICAL IMPRESSION Chronic abdominal pain.No generalized abdominal pain, epigastric pain or suprapubic pain. Umbilical hernia. No obstruction or gangrene.INSTRUCTIONS No strenuous activity. Drink plenty of fluids. (Please follow up with your primary care physician and your surgeon for your chronic abdominal pain and your pain where you have your hernia. Take tylenol and motrin for pain if you are not allergic to these medicines. return if worse or any new symptoms. Avoid lifting any heavy objects. please also follow up with your doctor regarding your cyst to your kidneys. you need continued observation of this cyst.). Warnings: Further evaluation is necessary. Your Current Medications: Your current home medications have been reviewed. CONTINUE TAKING THE FOLLOWING MEDICATIONS: 7 Clinical Report - Physicians/Mid Levels [facility] Emergency Department [address] [place] [address] Phone #: ext- [phone] 01/27/2020 11:08 Patient: NICK TRUJILLO Sex: M : 1990 Age: 29y Albuterol Sulfate Inhalation : prn. Incruse Ellipta Inhalation : daily. Keppra Oral. Lisinopril-hydroCHLOROthiazide Oral : Tablet 20-25 mg, daily. Lopid Oral : Tablet 600 mg, 2x a day. Mobic Oral : daily. Perforomist Inhalation : Nebulization Solution 20 mcg/2mL, q4h. Pristiq Oral : Tablet Extended Release 24 Hour 50 mg, daily. Singulair Oral : 10 mg daily. Stool Softener Oral : Capsule 100 mg, daily. Sucralfate Oral : 1 gm 4x a day. SUMAtriptan Succinate Oral : Tablet 100 mg, daily. Theophylline Oral : 400 mg 2x a day. Topamax Oral : daily. Zofran ODT Oral : prn. Follow-up: Follow up with doctor in days even if well. Summary of care provided to patient via paper. Understanding of the discharge instructions verbalized by patient.(Electronically signed by Milagros Morse MD 01/28/2020 00:50) Name Value Range Interpretation Code Description Data Giovana rce(s) Supporting Document(s) ID Date Data Source [id number] 01/27/2020 01:49:00 PM EDT [place] [place] [address] PHONE: [phone] FAX: [phone] Name .................. : GAVIOTA Madison Acct Number.................. : [id number] ROOM. ................. : TR-07 MR Number ................... : [id number] Stay type ............. : E/R Discharge Date......... ... : Admit Date ......... : 09/16 Admit Phys .................... : COONEYNORM Date of ....... : 1990 Family Phys ................... : MIR HARD Phone .................. : [phone] Age ................................ : 29 Film# .................. .:[id number] Sex ................................. : M Unsigned transcriptions are preliminary reports and do not represent a medical or legal document CT ABD & PELVIS W/ IV ONLY [id number] COMPLETE:01/27/20 12:41 [facility] [address] Reason(s): Abdominal Pain CT SCAN OF THE ABDOMEN & PELVIS WITH IV CONTRAST, 01/27/20: Comparison is made to a prior study from 10/21/2019. FINDINGS: The visualized portions of the lung bases are clear. No focal infiltrate or consolidation is identified. The heart, liver, spleen, pancreas, adrenal glands, and right kidney appear unremarkable. The gallbladder is not clearly visualized on today's examination. The left kidney demonstrates a cyst at the mid pole laterally measuring 1.7 cm. On this post-contrast study, the Hounsfield units measure 33. On the previous CT scan from 10/21/2019, the Hounsfield units on that unenhanced study measured 19 Hounsfield units. Surgical piyush are present in the right lower quadrant, suggesting a prior appendectomy. Clinical correlation is recommended. There is a ventral hernia id entified containing omental fat. The opening measures 3.7 cm. This has not significantly changed since the previous examination. No free fluid is identified in the pelvis. Urinary bladder appears unremarkable. Osseous structures appear unremarkable. IMPRESSION: Left renal cyst as discussed above. Ventral hernia without significant change. This contains omental fat. While performing the above CT examination, radiation dose reduction was accomplished utilizing automated exposure control, adjusting of the mA and kV based on the patient's body size and/or the use of imperative reconstructive techniques. CT dose 2741 mGycm. Contrast agent in mL: 100 mL Isovue 370 Method of administration: Intravenous Page 1 of 2 [facility] [address] [place] [address] [place] [address] PHONE: [phone] FAX: [phone] Name .................. : GAVIOTA Madison Acct Number.................. : [id number] ROOM. ................. : TR-07 MR Number ................... : [id number] Stay type ............. : E/R Discharge Date......... ... : Admit Date ......... : 01/27/20 Admit Phys .................... : COONEYNORM Date of ....... : 1990 Family Phys ................... : HESTER HARD Phone .................. : [phone] Age ................................ : 29 Film# .................. .:[id number] Sex ................................. : M Unsigned transcriptions are preliminary reports and do not represent a medical or legal document CT ABD & PELVIS W/ IV ONLY [id number] COMPLETE:01/27/20 12:41 [facility] [address] Reason(s): Abdominal Pain Examination dictated by CLYDE Gallego. Examination was reviewed with Cortez Sinha MD, radiologist at the time of this dictation. Electronically Reviewed and Signed By CORTEZ SINHA MD , 01/27/20 13:49, [facility] Transcribe Initials: SSR, Transcribe Date: 01/27/20 12:55, Dictation Date: Copy for: 010 EMERGENCY SRV Copy for: EMERGENCY DEPT via modem Copy for: 710 MED REC Page 2 of 2 Name Value Range Interpretation Code Description Data Giovana rce(s) Supporting Document(s) ID Date Data Source [id number] 01/27/2020 12:10:00 PM EDT [facility] ([facility]) Name Value Range Interpretation Code Description Data Giovana rce(s) Supporting Document(s) Urinalysis Laboratory test result [facility] ([facility]) SOURCE: Clean Catch Source Laboratory test result [facility] ([facility]) SOURCE: Clean Catch Color Laboratory test result [facility] ([facility]) SOURCE: Clean Catch Spec [place] 1.005 1.001-1.030 [facility] ([facility]) SOURCE: Clean Catch Clarity Laboratory test result [facility] ([facility]) SOURCE: Clean Catch Bilirubin Laboratory test result [facility] ([facility]) SOURCE: Clean Catch Glucose Laboratory test result [facility] ([facility]) SOURCE: Clean Catch pH 6.5 5-9 [facility] ([facility]) SOURCE: Clean Catch Protein Laboratory test result [facility] ([facility]) SOURCE: Clean Catch Ketone Laboratory test result [facility] ([facility]) SOURCE: Clean Catch Blood Laboratory test result [facility] ([facility]) SOURCE: Clean Catch Nitrite Laboratory test result [facility] ([facility]) SOURCE: Clean Catch Microscopic Laboratory test result [facility] ([facility]) SOURCE: Clean Catch Leuk Est 25 [facility] ([facility]) SOURCE: Clean Catch Urobilinogen Laboratory test result [facility] ([facility]) SOURCE: Clean Catch WBC Laboratory test result [facility] ([facility]) SOURCE: Clean Catch Epithelial Laboratory test result [facility] ([facility]) SOURCE: Clean Catch ID Date Data Source [id number] 01/27/2020 12:53:00 PM EDT [facility] Name Value Range Interpretation Code Description Data Giovana rce(s) Supporting Document(s) [facility] COL[facility] yellow NORMAL: Yellow [facility] CLARITY clear NORMAL: Clear [facility] Specific gravity of Urine by Test strip 1.005 1.001 - 1.030 [facility] pH 6.5 5 - 9 [facility] al Glucose [Mass/volume] in Urine by Test strip NORM NORMAL: Negat [facility] Bilirubin.total [Presence] in Urine by Test strip NEG NORMAL: Negative [facility] Ketones [Presence] in Urine by Test strip NEG NORMAL: Negative [facility] Protein [Mass/volume] in Urine by Test strip NEG NORMAL: Negat [facility] Nitrite [Presence] in Urine by Test strip NEG NORMAL: Negative [facility] BLOOD NEG NORMAL: Negative [facility] Leukocyte esterase [Presence] in Urine by Test strip 25 MILAGROS L: Negative [facility] Urobilinogen [Mass/volume] in Urine by Test strip NOR less vanessa n 1.0 mg/dL [facility] MICROSCOPIC See Below [facility] ital WBC 0 - 1 NORMAL: NONE SEEN [facility] EPITHELIAL FEW NORMAL: NONE SEEN [facility] ID Date Data Source [id number] 01/27/2020 11:27:00 AM EDT [facility] ([facility]) Name Value Range Interpretation Code Description Data Giovana rce(s) Supporting Document(s) Lipase [Enzymatic activity/volume] in Serum or Plasma 29 U/L 13-6 0 [facility] [facility] ID Date Data Source [id number] 01/27/2020 11:27:00 AM EDT [facility] ([facility]) Name Value Range Interpretation Code Description Data Giovana rce(s) Supporting Document(s) Comprehensive [facility] Laboratory test result [facility] ([facility]) COMPREHENSIVE METABOLIC PANEL Sodium 138 meq/L 134-153 [facility] ([facility]) Chloride 102 meq/L 98-107 [facility] ([facility]) Potassium 3.8 meq/L 3.6-5.0 [facility] ([facility]) Co2 26 meq/L 22-30 [facility] ([facility]) Glucose 102 mg/dL 65-110 [facility] ([facility]) Creatinine 1.0 mg/dL 0.7-1.5 [facility] ([facility]) BUN 10 mg/dL 7-21 [facility] ([facility]) BUN/Creat 10 8-27 [facility] ([facility]) Albumin 4.4 g/dL 3.9-5.0 [facility] ([facility]) Globulin 3.0 GM/DL 2.4-3.2 [facility] ([facility]) Total Protein 7.4 g/dL 6.3-8.2 [facility] ([facility]) Calcium 9.3 mg/dL 8.4-10.2 [facility] ([facility]) Total Bili Laboratory test result 0.2-1.3 [facility] ([facility]) A/G Ratio 1.5 0.8-2.0 [facility] ([facility]) Alkaline Phos 96 U/L 38-126 [facility] ([facility]) SGPT/Alt 27 U/L 7-56 [facility] ([facility]) Sgot/Ast 18 U/L 5-40 [facility] ([facility]) Anion Gap 10.0 mmol/L 8.0-16.0 [facility] ([facility]) Non-Aa GFR Laboratory test result [facility] ([facility]) Age 29 yrs [facility] ([facility]) Afr Amer GFR Laboratory test result [facility] ([facility]) Male GFR Interprentation 20-49 yrs >60 mL/min Normal 50-59 yrs >56 mL/min Normal 60-69 yrs >49 mL/min Normal 70-79yrs >42 mL/min Normal 80 and above >35 mL/min Normal Female GFR Interpretation 20-39 yrs >60 mL/min Normal 40-49 yrs >58 mL/min Normal 50-59 yrs >51 mL/min Normal 60-69 yrs >45 mL/min Normal 70-79 yrs >39 mL/min Normal 80 and above >32 mL/min Normal ID Date Data Source [id number] 01/27/2020 11:27:00 AM EDT [facility] ([facility]) Name Value Range Interpretation Code Description Data Giovana rce(s) Supporting Document(s) CBC W/Automated Diff Laboratory test result [facility] ([facility]) COMPLETE BLOOD COUNT Hemoglobin 15.9 g/dL 14.0-16.0 [facility] ([facility]) RBC 5.61 10^6/uL 4.50-6.30 [facility] ([facility]) WBC 8.8 10^3/uL 4.2-11.0 [facility] ([facility]) Hematocrit 49.5 % 41.0-51.0 [facility] ([facility]) MCV 88.2 fL 80.0-94.0 [facility] ([facility]) MCH 28.3 pg 27.0-34.0 [facility] ([facility]) RDW 13.8 % 11.5-14.8 [facility] ([facility]) Platelets 197 10^3/uL 150-450 [facility] ([facility]) MPV 9.0 fL 7.4-10.4 [facility] ([facility]) MCHC 32.1 g/dL 31.0-36.0 [facility] ([facility]) Lymph 21.5 % 25.0-40.0 Below low normal [facility] ( [facility]) [place] 8.4 % 3.0-8.0 Above high normal [facility] ([facility]) Neut 66.9 % 37.0-80.0 [facility] ([facility]) Eos 2.7 % 0.0-7.0 [facility] ([facility]) Baso 0.2 % 0.0-2.0 [facility] ([facility]) %Ig 0.3 % 0.0-0.0 Above high normal [facility] ([facility]) #Lymph 1.90 10^3/uL 0.60-3.40 [facility] ([facility]) %NRBC 0.0 % 0.0-0.0 [facility] ([facility]) #Neut 5.91 10^3/uL 2.00-6.90 [facility] ([facility]) #Baso 0.02 10^3/uL 0.00-0.20 [facility] ([facility]) #Ig 0.03 10^3/uL 0.00-0.10 [facility] ([facility]) #Eos 0.24 10^3/uL 0.00-0.70 [facility] ([facility]) #[place] 0.74 10^3/uL 0.00-0.90 [facility] ([facility]) RBC Morph Laboratory test result [facility] ([facility]) #NRBC 0.00 10^3/uL 0.00-0.00 [facility] ([facility]) Manual Diff Laboratory test result [facility] ([facility]) ID Date Data Source [id number] 01/27/2020 11:27:00 AM EDT [facility] ([facility]) Name Value Range Interpretation Code Description Data Giovana rce(s) Supporting Document(s) Lactate [Mass/volume] in Serum or Plasma 1.8 mmol/L 0.2-2.2 [facility] ([facility]) ID Date Data Source [id number] 01/27/2020 12:26:00 PM EDT [facility] Name Value Range Interpretation Code Description Data Giovana rce(s) Supporting Document(s) Lipase [Enzymatic activity/volume] in Serum or Plasma 29 U/L 13 - 60 [facility] ID Date Data Source [id number] 01/27/2020 12:26:00 PM EDT [facility] Name Value Range Interpretation Code Description Data Giovana rce(s) Supporting Document(s) COMPREHENSIVE METABOLIC PANEL [facility] COMPREHENSIVE METABOLIC PANEL Sodium [Moles/volume] in Serum or Plasma 138 mEq/L 134 - 153 [facility] Potassium [Moles/volume] in Serum or Plasma 3.8 mEq/L 3.6 - 5.0 [facility] Chloride [Moles/volume] in Serum or Plasma 102 mEq/L 98 - 107 [facility] Carbon dioxide, total [Moles/volume] in Serum or Plasma 26 MEQ/L 22 - 30 [facility] Glucose [Mass/volume] in Serum or Plasma 102 MG/DL 65 - 110 [facility] BUN 10 MG/DL 7 - 21 [facility] Creatinine [Mass/volume] in Serum or Plasma 1.0 MG/DL 0.7 - 1.5 [facility] BUN/CREAT 10 8 - 27 [facility] Protein [Mass/volume] in Serum or Plasma 7.4 G/DL 6.3 - 8.2 [facility] Albumin [Mass/volume] in Serum or Plasma 4.4 G/DL 3.9 - 5.0 [facility] Globulin [Mass/volume] in Serum by calculation 3.0 GM/DL 2.4 - 3.2 [facility] A/G RATIO 1.5 0.8 - 2.0 [facility] Calcium [Mass/volume] in Serum or Plasma 9.3 MG/DL 8.4 - 10.2 [facility] Bilirubin.total [Mass/volume] in Serum or Plasma <0.7 MG/DL 0.2 - 1.3 [facility] Alkaline phosphatase [Enzymatic activity/volume] in Serum or Plasma 96 U/L 38 - 126 [facility] Aspartate aminotransferase [Enzymatic activity/volume] in Serum or Plasma 18 U/L 5 - 40 [facility] Alanine aminotransferase [Enzymatic activity/volume] in Seru m or Plasma 27 U/L 7 - 56 [facility] Anion gap 3 in Serum or Plasma 10.0 mmol/L 8.0 - 16.0 [facility] AGE 29 yrs [facility] NON-AA GFR >60 mL/min [facility] ital AFR AMER GFR >60 mL/min [facility] spital Male GFR In terprentation 20-49 yrs >60 mL/min Normal 50-59 yrs >56 mL/min Normal 60-69 yrs >49 mL/min Normal 70-79yrs >42 mL/min Normal 80 and above >35 mL/min Normal Female GFR Interpretation 20-39 yrs >60 mL/min Normal 40-49 yrs >58 mL/min Normal 50-59 yrs >51 mL/min Normal 60-69 yrs >45 mL/min Normal 70-79 yrs >39 mL/min Normal 80 and above >32 mL/min Normal ID Date Data Source [id number] 01/27/2020 12:13:00 PM EDT [facility] Name Value Range Interpretation Code Description Data Giovana rce(s) Supporting Document(s) CBC W/AUTOMATED DIFF [facility] COMPLETE BLOOD COUNT Leukocytes [#/volume] in Blood by Automated count 8.8 10^3/uL 4.2 - 1 1.0 [facility] Erythrocytes [#/volume] in Blood by Automated count 5.61 10^6/uL 4. 50 - 6.30 [facility] Hemoglobin [Mass/volume] in Blood 15.9 g/dL 14.0 - 16.0 [facility] Hematocrit [Volume Fraction] of Blood by Automated count 49.5 % 4 1.0 - 51.0 [facility] Erythrocyte mean corpuscular volume [Entitic volume] by Auto mated count 88.2 fL 80.0 - 94.0 [facility] Erythrocyte mean corpuscular hemoglobin [Entitic mass] by Automated count 28.3 pg 27.0 - 34.0 [facility] Erythrocyte mean corpuscular hemoglobin concentration [Mass/volume] by Automated count 32.1 g/dL 31.0 - 36.0 [facility] Erythrocyte distribution width [Ratio] by Automated count 13.8 % 11.5 - 14.8 [facility] Platelets [#/volume] in Blood by Automated count 197 10^3/uL 150 - 45 0 [facility] Platelet mean volume [Entitic volume] in Blood by Automated count 9.0 fL 7.4 - 10.4 [facility] Neutrophils/100 leukocytes in Blood by Automated count 66.9 % 37. 0 - 80.0 [facility] Lymphocytes/100 leukocytes in Blood by Manual count 21.5 % 25.0 - 40.0 L [facility] Monocytes/100 leukocytes in Blood by Automated count 8.4 % 3.0 - 8.0 H [facility] Eosinophils/100 leukocytes in Blood by Automated count 2.7 % 0.0 - 7.0 [facility] Basophils/100 leukocytes in Blood by Automated count 0.2 % 0.0 - 2.0 [facility] %IG 0.3 % 0.0 - 0.0 H [facility] %NRBC 0.0 % 0.0 - 0.0 [facility] al Neutrophils [#/volume] in Blood by Automated count 5.91 10^3/uL 2.00 - 6.90 [facility] Lymphocytes [#/volume] in Blood by Automated count 1.90 10^3/uL 0.60 - 3.40 [facility] Monocytes [#/volume] in Blood by Automated count 0.74 10^3/uL 0.00 - 0.90 [facility] Eosinophils [#/volume] in Blood by Automated count 0.24 10^3/uL 0.00 - 0.70 [facility] Basophils [#/volume] in Blood by Automated count 0.02 10^3/uL 0.00 - 0.20 [facility] #IG 0.03 10^3/uL 0.00 - 0.10 [facility] ospital #NRBC 0.00 10^3/uL 0.00 - 0.00 [facility] o[facility]ital MANUAL DIFF NOT INDICATED [facility] RBC MORPH NOT INDICATED [facility] spital ID Date Data Source [id number] 01/27/2020 12:10:00 PM EDT [facility] Name Value Range Interpretation Code Description Data Giovana rce(s) Supporting Document(s) Lactate [Moles/volume] in Serum or Plasma 1.8 MMOL/L 0.2 - 2.2 [facility] ID Date Data Source [id number] 01/17/2020 02:07:00 PM EDT [facility] [place] [address] PHONE: [phone] FAX: [phone] Name .................. : GAVIOTA Madison Acct Number.................. : [id number] ROOM. ................. : Number ................... : [id number] Stay type ............. : O/P Discharge Date......... ... : 01/17/20 Admit Date ......... : 01/17/20 Admit Phys .................... : [employer] HARD Date of ....... : 1990 Family Phys ................... : [employer] Phone .................. : [phone] Age ................................ : 29 Film# .................. .:[id number] Sex ................................. : M Unsigned transcriptions are preliminary reports and do not represent a medical or legal document RIBS UNILAT W/PA CXR [place] [id number] COMPLETE:01/17/20 10:15 BEM [id number] (REASON FOR CHEST: CHEST PAIN LEFT RIB WITH PHS SERIES, 01/17/20: FINDINGS: There is normal alignment and position of the bones of the thorax. No fractures are identified. No evidence for pneumothorax is noted. There is some mild to moderate spurring at the thoracic spine with a mild rightward scoliosis at the lower thoracic spine and mild leftward scoliosis at the upper to mid lumbar spine. IMPRESSION: Unremarkable rib series. Electronically Reviewed and Signed By Jose Antonio Munoz MD , 01/17/20 14:07, TDS Transcribe Initials: SSR, Transcribe Date: 01/17/20 11:35, Dictation Date: Copy for: [facility] REC Page 1 of 1 Name Value Range Interpretation Code Description Data Giovana rce(s) Supporting Document(s) ID Date Data Source [id number] 01/17/2020 01:27:00 PM EDT [facility] [address] [address] PHONE: [phone] FAX: [phone] Name .................. : GAVIOTA Madison Acct Number.................. : [id number] ROOM. ................. : [facility] MR Number ................... : [id number] Stay type ............. : E/R Discharge Date......... ... : 01/13/20 Admit Date ......... : 01/13/20 Admit Phys .................... : [place] Date of ....... : 1990 Family Phys ................... : [facility] Phone .................. : [phone] Age ................................ : 29 Film# .................. .:[id number] Sex ................................. : M Unsigned transcriptions are preliminary reports and do not represent a medical or legal document CT HEAD W/O CONTRAST [id number] COMPLETE:01/13/20 17:10 ALVAREZ [id number] Reason(s): Headache CT OF THE HEAD WITHOUT CONTRAST: COMPARISON: None. FINDINGS: Intracranial hemorrhage, space occupying mass, mass effect or midline shift is not seen. Obstructive hydrocephalus is not identified. There is no acute ischemic event. Extensive mucosal disease is seen in the right frontal sinus, right ethmoid air cells, right maxillary sinus and right sphenoid sinus, raising concern for sinusitis. The left-sided sinuses are clear. Interval pathology is not identified. The skull and mastoid air cells are unremarkable. IMPRESSION: Intracranial pathology not seen. Findings that raise concern for right-sided sinusitis noted. While performing the above CT examination, radiation dose reduction was accomplished utilizing automated exposure control, adjusting of the mA and kV based on the patient's body size and/or the use of imperative reconstructive techniques. CT dose: 857.1 mGycm Electronically Reviewed and Signed By Mami Werner MD , 01/17/20 13:27, KGG Transcribe Initials: GUCCI , Transcribe Date: 01/13/20 21:55, Dictation Date: Copy for: EMERGENCY DEPT via [facility] Copy for: 710 MED REC DISCHARGED Page 1 of 1 Name Value Range Interpretation Code Description Data Giovana rce(s) Supporting Document(s) ID Date Data Source [id number] 01/17/2020 01:26:00 PM EDT [facility] [address] [place] [address] PHONE: [phone] FAX: [phone] Name .................. : GAVIOTA Madison Acct Number.................. : [id number] ROOM. ................. : TR- Number ................... : [id number] Stay type ............. : E/R Discharge Date......... ... : 01/13/20 Admit Date ......... : 01/13/20 Admit Phys .................... : [place] Date of ....... : 1990 Family Phys ................... : [employer] [facility] Phone .................. : [phone] Age ................................ : 29 Film# .................. .:[id number] Sex ................................. : M Unsigned transcriptions are preliminary reports and do not represent a medical or legal document CHEST PORTABLE [id number] COMPLETE:01/13/20 14:18 ARS 74198 Reason(s): Shortness of Breath PORTABLE CHEST X-RAY: FINDINGS: The cardiac and mediastinal silhouettes appear normal and the lungs are clear. The bones and soft tissues are normal. The upper abdomen is unremarkable. IMPRESSION: No acute disease identifiable. Electronically Reviewed and Signed By Mami Werner MD , 01/17/20 13:26, KGG Transcribe Initials: GUCCI , Transcribe Date: 01/13/20 19:46, Dictation Date: Copy for: EMERGENCY DEPT via [facility] Copy for: 710 MED REC DISCHARGED Page 1 of 1 Name Value Range Interpretation Code Description Data Giovana rce(s) Supporting Document(s) ID Date Data Source [id number] 01/13/2020 01:42:00 PM EDT [facility] 1 OrderSheet [facility] Emergency Department [address] [place] [address] Phone #: ext- [phone] 01/13/2020 13:41 Patient: NICK TRUJILLO Sex: M : 1990 Age: 29yWEIGHT:177.8 kg HEIGHT:71 inches BMI:54.7ALLERGIES: Dilantin, Naproxsyn, Tylenol with codeinCHIEF COMPLAINT: seizureDIAGNOSIS: SeizureLAB ORDERSOrder Description Priority Entered Acknowledged InitialedCBC w Diff STAT 13:56 01/13/2020 14:01 Mini Mcfarland Norma MD; Lacho R.N.CMP STAT 13:56 01/13/2020 14:01 Mini Mcfarland Norma MD; Lacho Zaragoza.N.Lipase STAT 13:56 01/13/2020 14:01 Mini Mcfarland Norma MD; Lacho Zaragoza.NShayLactic Acid STAT 13:56 01/13/2020 14:01 Mini Mcfarland Norma MD; Lacho R.NShayUrinalysis (Clean STAT 13:56 01/13/2020 14:01 Bruna,Catch) Milagros Morse MD; Lacho R.NShay-- (topamax level) STAT 14:38 01/13/2020 14:39 Bruna,(Blood) Milagros Morse MD; Lacho R.NShayDIAGNOSTIC STUDY ORDERSOrder Description Priority Entered Acknowledged InitialedChest Portable 1 STAT 13:56 01/13/2020 14:01 Bruna,View Milagros Morse MD; Lacho R.NShay(Oxygen?(No)) NOTES: s/p seizure. r/o aspiration Reason for Study: Shortness of BreathCT Head W/O Cont STAT 15:46 01/13/2020 15:47 Bruna,(Oxygen?(No)) Milagros Morse MD; Lacho R.N. NOTES: seizure Reason for Study: HeadacheMEDICATION/IV/DRIP/FLUID ORDERSOrder Description Priority Entered Acknowledged InitialedGENERAL ORDERSOrder Description Priority Entered Acknowledged Initialed 2 OrderSheet [facility] Emergency Department [address] [place] [address] Phone #: ext- [phone] 01/13/2020 13:41 Patient: NICK TRUJILLO Sex: M : 1990 Age: 29y[Electronically signed by Lacho Mcfarland R.N. (20:08 01/13/2020)][Electronically signed by Milagros Morse MD (22:42 01/15/2020)][Electronically locked by Lacho Mcfarland R.N. (20:08 01/13/2020)] Name Value Range Interpretation Code Description Data Giovana rce(s) Supporting Document(s) ID Date Data Source [id number] 01/13/2020 01:42:00 PM EDT [facility] 1 Medication Reconciliation Report [facility] Emergency Department [address] [place] [address] Phone #: ext- [phone] 01/13/2020 13:41 Patient: NICK TRUJILLO Sex: M : 1990 Age: 29yWeight: 177.8 kgHeight/Length: 71 in.BMI: 54.7ALLERGIES: Dilantin, Naproxsyn, Tylenol with codeinThe patient's Home Medications are listed below:CONTINUE TAKING THE FOLLOWING MEDICATIONS: Albuterol Sulfate Inhalation, prn Gabapentin Oral (100 mg), daily Incruse Ellipta Inhalation, daily Lisinopril-hydroCHLOROthiazide Oral (20-25 mg), daily Lopid Oral (600 mg), 2x a day Mobic Oral, daily Perforomist Inhalation (20 mcg/2mL), q4h Pristiq Oral (50 mg), daily Singulair Oral 10 mg, daily Stool Softener Oral (100 mg), daily Sucralfate Oral 1 gm, 4x a day SUMAtriptan Succinate Oral (100 mg), daily Theophylline Oral 400 mg, 2x a day Topamax Oral, daily Zofran ODT Oral, prn 2 Medication Reconciliation Report [facility] Emergency Department [address] [place] [address] Phone #: ext- [phone] 01/13/2020 13:41 Patient: NICK TRUJILLO Sex: M : 1990 Age: 29yThe source(s) of the original Home Medication information:Not obtained.The following Medications were given to the patient in the Emergency Department:None.The following Medications were prescribed to the patient:None. Name Value Range Interpretation Code Description Data Giovana rce(s) Supporting Document(s) ID Date Data Source [id number] 01/13/2020 01:42:00 PM EDT [facility] 1 Medication Administration Record [facility] Emergency Department [address] [place] [address] Phone #: ext [phone] 01/13/2020 13:41 Patient: NICK TRUJILLO Sex: M : 1990 Age: 29yWeight: 177.8 kgHeight/Length: 71 inBMI: 54.7ALLERGIES: Dilantin, Naproxsyn, Tylenol with codeinDate/Time Medication Administered Medication Ordered Name Value Range Interpretation Code Description Data Giovana rce(s) Supporting Document(s) ID Date Data Source [id number] 01/13/2020 01:42:00 PM EDT [facility] 1 General Instructions [facility] Emergency Department [address] [place] [address] Phone #: ext- [phone] 01/13/2020 13:41 Patient: NICK TRUJILLO Sex: M : 1990 Age: 29ySeizure.INSTRUCTIONSNo driving or operating machinery.(Please do not do any activities that might cause you harm if you have a seizure. please follow up with in the next 2-3 days. Take all medications as previously instructed. return if worse or any newsymptoms.).Your Current Medications: Your current home medications have been reviewed.CONTINUE TAKING THE FOLLOWING MEDICATIONS:Albuterol Sulfate Inhalation : prn.Gabapentin Oral : Capsule 100 mg, daily.Incruse Ellipta Inhalation : daily.Lisinopril-hydroCHLOROthiazide Oral : Tablet 20-25 mg, daily.Lopid Oral : Tablet 600 mg, 2x a day.Mobic Oral : daily.Perforomist Inhalation : Nebulization Solution 20 mcg/2mL, q4h.Pristiq Or al : Tablet Extended Release 24 Hour 50 mg, daily.Singulair Oral : 10 mg daily.Stool Softener Oral : Capsule 100 mg, daily.Sucralfate Oral : 1 gm 4x a day.SUMAtriptan Succinate Oral : Tablet 100 mg, daily.Theophylline Oral : 400 mg 2x a day.Topamax Oral : daily.Zofran ODT Oral : prn.Follow-up:Follow up with a neurologist- as recommended by your health care provider- even if well. Call for anappointment. Follow up with your doctor in two days even if well. Call for an appointment. Reason forreferral: evaluation and treatment. Summary of care provided to patient via paper.Understanding of the discharge instructions verbalized by patient. 2 General Instructions [facility] Emergency Department [address] [place] [address] Phone #: ext- [phone] 01/13/2020 13:41 Patient: NICK TRUJILLO Sex: M : 1990 Age: 29yNo driving or operating machinery.(Electronically signed by Milagros Morse MD 01/15/2020 22:42) Name Value Range Interpretation Code Description Data Giovana rce(s) Supporting Document(s) ID Date Data Source [id number] 01/13/2020 01:42:00 PM EDT [facility] 1 Clinical Report - Nurses [facility] Emergency Department [address] [place] [address] Phone #: [phone]- [phone] 01/13/2020 13:41 Patient: NICK TRUJILLO Sex: M : 1990 Age: 29yTRIAGEArrived by EMS. Historian: patient. ( pt had witnessed seizure by home health nurse.).Triage time: 13:42 01/13/2020. Acuity: LEVEL 3.Chief Complaint: SEIZURE.Alert.This occurred just prior to arrival. Patient was witnessed to be last known well. --13:52 01/13/20Enedina Banda R.N.13:42 01/13/20. BP: 119/92. HR: 103. RR: 18. O2 saturation: 98%. Temp: 97.6 F. Pain level now 7/10.--13:52 01/13/20 Enedina Banda R.N.Weight: 177.8 kg. Height/Length: 71 inches. BMI: 54.7. --13:41 01/13/20 Enedina Banda R.N.MedicationsAlbuterol Sulfate Inhalation, as needed. --13:45 01/13/20 Enedina Banda R.N. Gabapentin Oral (Capsule 100 mg), daily. --13:46 01/13/20 Enedina Banda R.N. Incruse Ellipta Inhalation, daily. --13:46 01/13/20 Enedina Banda R.N. Lisinopril-hydroCHLOROthiazide Oral (Tablet 20-25 mg), daily. --13:46 01/13/20 Enedina Banda R.N. Lopid Oral (Tablet 600 mg), 2x a day. --13:47 01/13/20 Enedina Banda R.N. Mobic Oral, daily. --13:47 01/13/20 Enedina Banda R.N. Perforomist Inhalation (Nebulization Solution 20 mcg/2mL), q4h. --13:47 01/13/20 Enedian Banda R.N. Zofran ODT Oral, as needed. --13:48 01/13/20 Enedina Banda R.N. Pristiq Oral (Tablet Extended Release 24 Hour 50 mg), daily. --13:48 01/13/20 Enedina Banda R.N. Singulair Oral 10 mg, daily. --13:48 01/13/20 Enedina Banda R.N. Sucralfate Oral 1 gm, 4x a day. --13:49 01/13/20 Enedina Banda R.N. Stool Softener Oral (Capsule 100 mg), daily. --13:49 01/13/20 Enedina Banda R.N. SUMAtriptan Succinate Oral (Tablet 100 mg), daily. --13:49 01/13/20 Enedina Banda R.N. Theophylline Oral 400 mg, 2x a day. --13:50 01/13/20 Enedina Banda R.N. Topamax Oral, daily. --13:50 01/13/20 Enedina Banda R.N.AllergiesDilantin.Naproxsyn.Tylenol with codein. --13:45 01/13/20 Enedina Banda R.N.PROBLEMS:Hematuria.Asthma. 2 Clinical Report - Nurses [facility] Emergency Department [address] [place] [address] Phone #: ext- [phone] 01/13/2020 13:41 Patient: NICK TRUJILLO Sex: M : 1990 Age: 29y Renal Colic. Seziures. --14:09 01/13/20 Lacho Mcfarland R.N. ADDITIONAL SURGERIES: Hernia Repair. --14:09 01/13/20 Lacho Mcfarland R.N. History PAST MEDICAL HX: Seizures. Immunizations: up-to-date. SURGERY HX: Umbilical hernia repair. SOCIAL HX: Never smoker. No alcohol use or drug use. The patient was offered HIV testing but declined. The patient has not traveled outside the [place] Infectious disease exposure: No infectious disease exposure. The patient was not exposed to Coronavirus. Patient is not a known carrier of tuberculosis, hepatitis, HIV, MRSA or VRE. Patient is not a known carrier of CRE. SELF HARM ASSESSMENT: Self harm assessment was performed. The patient answered "no" to the question(s) "Have you recently felt down, depressed, or hopeless?", "Do you have thoughts of harming or killing yourself?", "Do you have a plan for harming or killing yourself?", "Have you recently had thoughts about harming or killing others?", "Do you have any dangerous items in your possession?", "Have you noticed less interest or pleasure in doing things?", "Are you here because you tried to hurt yourself?" and "Have you ever tried to hurt yourself before today?". ABUSE ASSESSMENT: Abuse assessment. Abuse denied. No suspicion of abuse. No report of abuse. NUTRITIONAL RISK ASSESSMENT: The nutritional risk assessment revealed no deficiencies. FUNCTIONAL ASSESSMENT: Functional assessment: no impairments noted. LEARNING NEEDS ASSESSMENT: The learning needs assessment revealed no barriers. FALL RISK ASSESSMENT: Fall risk assessment completed. Risk factors identified include patient history of fall. SKIN INTEGRITY ASSESSMENT: Skin integrity risk assessment completed. No skin integrity risk identified. --13:52 01/13/20 Enedina Banda R.N. Interventions Identification band on patient. To treatment room. --13:52 01/13/20 Enedina Banda R.N.PHYSICAL [id number] 01/13/20. To room via stretcher.GENERAL / NEURO / PSYCH: Alert. Oriented X 4. Appears in no acute distress. No apparent seizureactivity. Speech within normal limits. Patient appears well-nourished. 3 Clinical Report - Nurses [facility] Emergency Department [address] [place] [address] Phone #: ext- [phone] 01/13/2020 13:41 Patient: NICK TRUJILLO Sex: M : 1990 Age: 29y HEENT: No facial asymmetry noted. Pupils equal, round and reactive to light. Mucous membranes are pink. RESPIRATORY: Respirations not labored. Breath sounds within normal limits. CVS: Capillary refill less than 2 seconds. GI / : Abdomen soft and nontender. Bowel sounds within normal limits. SKIN: Skin intact. Skin is warm and dry. Normal skin turgor. --14:02 01/13/20 Lacho Mcfarland R.N.NURSING PROGRESS NOTESMonitoring of patient in place. Patie nt gowned. Seizure precautions initiated. Three patient identifierschecked. Call light placed in reach. Side rails up x 2. Bed placed in lowest position. Brakes of bed on.--13:52 01/13/20 Enedina Banda R.N. 14:08 01/13/2020 Three (3) unsuccessful IV access attempts including the right antecubital space and left antecubital space. Applied bandage. --14:08 01/13/20 Lacho Mcfarland R.N. Reassurance given. Reassessment acuity: LEVEL 3. Seizure precautions maintained. The patient reports no complaints, he is calm and resting quietly and he has had no adverse reaction. Overall patient status is improved- he states feels better. GENERAL / NEURO / PSYCH: Alert. Oriented X 4. No apparent seizure activity. The patient does not appear post-ictal. Patient appears calm and cooperative. No weakness or numbness. RESPIRATORY: No respiratory distress. SKIN: Skin is warm and dry. Two patient identifiers checked. Call light placed in reach. Side rails up x 2. Bed placed in lowest position. Brakes of bed on. --14:35 01/13/20 Lacho Mcfarland R.N. 15:44 01/13/20. Reassurance given. Reassessment acuity: LEVEL 3. Seizure precautions maintained. The patient reports no complaints, he is calm and resting quietly and he has had no adverse reaction. Overall patient status is improved- he states feels better. GENERAL / NEURO / PSYCH: Alert. Oriented X 4. No apparent seizure activity. The patient does not appear post-ic giovanna. Patient appears calm and cooperative. No weakness or numbness. RESPIRATORY: No respiratory distress. SKIN: Skin is warm and dry. Two patient identifiers checked. Call light placed in reach. Side rails up x 2. Bed placed in lowest position. Brakes of bed on. --15:44 01/13/20 Lacho Mcfarland R.NShay 16:22 01/13/20. Patient transported to CT by wheelchair with waste transportation technician. --16:22 01/13/20 Lacho Mcfarland R.N. 16:30 01/13/20. Patient returned from CT by stretcher with waste transportation technician. --16:30 01/13/20 Lacho Mcfarland R.N. 17:01 01/13/20. Reassurance given. Reassessment acuity: LEVEL 3. Seizure precautions maintained. The patient reports no complaints, he is calm and resting quietly and he has had no adverse reaction. Overall patient status is improved- he states feels better. GENERAL / NEURO / PSYCH: Alert. Oriented X 4. Patient appears calm and cooperative. No weakness or numbness. 4 Clinical Report - Nurses [facility] Emergency Department [address] [place] [address] Phone #: ext- [phone] 01/13/2020 13:41 Patient: NICK TRUJILLO Sex: M : 1990 Age: 29y RESPIRATORY: No respiratory distress. SKIN: Skin is warm and dry. Two patient identifiers checked. Call light placed in reach. Side rails up x 2. Bed placed in lowest position. Brakes of bed on. Patient ready for evaluation- ED physician notified. --17:01 01/13/20 Lacho Mcfarland R.N.DISPOSITION / DISCHARGE 17:42 01/13/20. Departure time: 17:52 01/13/2020. Condition at departure: improved and stable. The goals identified in the patient's plan of care were met. Fall risk assessment completed. No risk factors identified. No learning barriers present. Reviewed warnings. Reviewed medication(s). Treatments reviewed. Reviewed referral to a neurologist and primary care physician. Patient verbalized understanding. Written instructions provided in Albanian. The patient was discharged by the physician. He was discharged home and accompanied by spouse. He left ambulatory and via (walked). --17:54 01/13/20 Lacho Mcfarland R.N. 17:52 01/13/20. BP: 139/81. MAP: 100. HR: 103. RR: 16. O2 saturation: 99% on room air. Temp: 97.6 F. Pain level now: 0/10. --17:54 01/13/20 Lacho Mcfarland R.N.Locked/Released at 01/13/2020 20:08 by Lacho Mcfarland R.N. Name Value Range Interpretation Code Description Data Giovana rce(s) Supporting Document(s) ID Date Data Source [id number] 0001 01/13/2020 01:42:00 PM EDT [facility] 1 Clinical Report - Physicians/Mid Levels [facility] Emergency Department [address] [place] [address] Phone #: ext- [phone] 01/13/2020 13:41 Patient: NICK TRUJILLO Sex: M : 1990 Age: 29y Arrived- By ambulance. Historian- patient and EMS personnel. Disposition decision: 17:36 01/13/2020.HISTORY OF PRESENT ILLNESS Chief Complaint: SEIZURE. This occurred today. Is no longer seizing. He has recovered. Not post-ictal in the emergency department. Unknown when patient was last known well. Seizure was not witnessed. Experienced repeated seizures. No post-ictal symptoms. No injuries noted. Did not recently change anticonvulsant medication or miss recent dose of anticonvulsant. Has not recently been ill. No recent sleep deprivation or alcohol recently. pt reportedly had approximately 10 seizures today. pt states he has not had a seizure in over 1 year. he denies any changes in his medications. he denies any aches, pains or any injury. he denies falling or hitting his head during any of these seizures. Similar symptoms previously.REVIEW OF SYSTEMSNo fever, chest pain or pain, palpitations or cough. No difficulty breathing, eye irritation, sore throat orthroat or abdominal pain. No nausea, diarrhea or black stools or stools. No difficulty with urination orurination, skin rash or rash or vomiting. No bloody stools, joint pain or pain, chills or fever. No doublevision, ear pain, epistaxis, cough or difficulty breathing. No diarrhea, nausea, vomiting, urinary frequencyor hematuria. No back pain, neck pain, headache or easy bruising. The patient had seizure activity.PAST HISTORYSee nurses notes. Seizures. No history of head injury. Problems: Seziures. Additional Surgeries: Hernia Repair. Umbilical Hernia Repair. Medications: Topamax Oral, daily. Theophylline Oral 400 mg, 2x a day. SUMAtriptan Succinate Oral (Tablet 100 mg), daily. Stool Softener Oral (Capsule 100 mg), daily. Sucralfate Oral 1 gm, 4x a day. Singulair Oral 10 mg, daily. Pristiq Oral (Tablet Extended Release 24 Hour 50 mg), daily. 2 Clinical Report - Physicians/Mid Levels [facility] Emergency Department [address] [place] [address] Phone #: ext- [phone] 01/13/2020 13:41 Patient: NICK TRUJILLO Sex: M : 1990 Age: 29y Zofran ODT Oral, as needed. Perforomist Inhalation (Nebulization Solution 20 mcg/2mL), q4h. Mobic Oral, daily. Lopid Oral (Tablet 600 mg), 2x a day. Lisinopril-hydroCHLOROthiazide Oral (Tablet 20-25 mg), daily. Incruse Ellipta Inhalation, daily. Gabapentin Oral (Capsule 100 mg), daily. Albuterol Sulfate Inhalation, as needed. Allergies: Dilantin. Naproxsyn. Tylenol with codein.SOCIAL HISTORYNo alcohol use or drug use.ADDITIONAL NOTESThe nursing notes have been reviewed.PHYSICAL EXAMVital Signs: 01/13/2020 17:52 BP: 139/81. MAP: 100. HR: 103. RR: 16. O2 saturation: 99% on room air.Temp: 97.6 F. Pain level now: 0/10.01/13/2020 16:00 BP: 124/84. MAP: 97. HR: 97. RR: 19. O2 saturation: 99%.01/13/2020 15:00 BP: 120/88. MAP: 98. HR: 98. RR: 18. O2 saturation: 98%.01/13/2020 13:42 BP: 119/92. MAP: 101. HR: 103. RR: 18. O2 saturation: 98%. Temp: 97.6 F. Havebeen reviewed and appear to be correct. Hypertensive. Mean arterial pressure- normal. Heart ratenormal. Respiratory rate normal. Temperature normal. Oxygen saturation normal.Appearance: Alert. No acute distress. No apparent distress.Eyes: Pupils equal, round and reactive to light. No nystagmus. Extraocular movements normal.ENT: Normal ENT inspection. Moist mucous membranes. Pharynx normal. (no abrasions or lacerationsto tongue, either side).Neck: Normal inspection. Neck supple.CVS: Normal heart rate and rhythm. Heart sounds normal. Pulses normal.Respiratory: No respiratory distress. Painless inspiration. Breath sounds normal.Abdomen: Soft and nontender.Back: Normal inspection. No CVA tenderness.Skin: Skin warm and dry. Normal skin color. No rash. Normal skin turgor.Extremities: Extremities exhibit normal ROM.Neuro: Alert. Oriented X 3. Mood/affect normal. Cranial nerves normal (as tested). No cerebellarfindings. No motor deficit. No sensory deficit.LABS, X-RAYS, AND EKGLaboratory Tests: CT Head W/O Cont: (KAVITA: 01/13/2020 15:46) ( MsgRcvd 01/13/2020 17:10) In Progress 3 Clinical Report - Physicians/Mid Levels [facility] Emergency Department [address] [place] [address] Phone #: ext- [phone] 01/13/2020 13:41 Patient: NICK TRUJILLO Sex: M : 1990 Age: 29yCT HEAD W/O CONTRASTReason(s): HeadacheTRANSPORTATION: S IV? O2? Oxygen?(No) Room: ED CMTS: [facility] w Diff: (KAVITA: 01/13/2020 14:13) ( MsgRcvd 01/13/2020 14:28) Final results Test Result Flag Units (Reference) CBC W/AUTOMATED DIFF COMPLETE BLOOD COUNT WBC 8.6 10/uL (4.2 - 11.0) RBC 5.69 10/uL (4.50 - 6.30) HEMOGLOBIN 16.2 H g/dL (14.0 - 16.0) HEMATOCRIT 50.7 % (41.0 - 51.0) MCV 89.1 fL (80.0 - 94.0) MCH 28.5 pg (27.0 - 34.0) MCHC 32.0 g/dL (31.0 - 36.0) RDW 13.7 % (11.5 - 14.8) PLATELETS 212 10/uL (150 - 450) MPV 9.0 fL (7.4 - 10.4) NEUT 68.4 % (37.0 - 80.0) LYMPH 20.7 L % (25.0 - 40.0) MONO 7.7 % (3.0 - 8.0) EOS 2.9 % (0.0 - 7.0) BASO 0.1 % (0.0 - 2.0) %IG 0.2 H % (0.0 - 0.0) %NRBC 0.0 % (0.0 - 0.0) #NEUT 5.84 10/uL (2.00 - 6.90) #LYMPH 1.77 10/uL (0.60 - 3.40) #MONO 0.66 10/uL (0.00 - 0.90) #EOS 0.25 10/uL (0.00 - 0.70) #BASO 0.01 10/uL (0.00 - 0.20) #IG 0.02 10/uL (0.00 - 0.10) #NRBC 0.00 10/uL (0.00 - 0.00) MANUAL DIFF NOT INDICATED RBC MORPH NOT INDICATEDCMP: (KAVITA: 01/13/2020 14:13) ( MsgRcvd 01/13/2020 14:56) Final results Test Result Flag Units (Reference) COMPREHENSIVE METABOLIC PANEL COMPREHENSIVE METABOLIC PANEL SODIUM 143 mEq/L (134 - 153) POTASSIUM 4.0 mEq/L (3.6 - 5.0) CHLORIDE 108 H mEq/L (98 - 107) CO2 24 MEQ/L (22 - 30) GLUCOSE 141 H MG/DL (65 - 110) BUN 12 MG/DL (7 - 21) CREATININE 0.9 MG/DL (0.7 - 1.5) BUN/CREAT 13 (8 - 27) TOTAL PROTEIN 7.6 G/DL (6.3 - 8.2) ALBUMIN 4.4 G/DL (3.9 - 5.0) GLOBULIN 3.2 GM/DL (2.4 - 3.2) A/G RATIO 1.4 (0.8 - 2.0) CALCIUM 9.1 MG/DL (8.4 - 10.2) TOTAL BILI <0.7 MG/DL (0.2 - 1.3) ALKALINE PHOS 96 U/L (38 - 126) SGOT/AST 20 U/L (5 - 40) SGPT/ALT 29 U/L (7 - 56) 4 Clinical Report - Physicians/Mid Levels [facility] Emergency Department [address] [place] [address] Phone #: ext- [phone] 01/13/2020 13:41 Patient: NICK TRUJILLO Sex: M : 1990 Age: 29y ANION GAP 11.0 mmol/L (8.0 - 16.0) AGE 29 yrs NON-AA GFR >60 mL/min AFR AMER GFR >60 mL/min Male GFR Interprentation 20-49 yrs >60 mL/min Normal 50-59 yrs >56 mL/min Normal 60-69 yrs >49 mL/min Normal 70-79yrs >42 mL/min Normal 80 and above >35 mL/min Normal Female GFR Interpretation 20-39 yrs >60 mL/min Normal 40-49 yrs >58 mL/min Normal 50-59 yrs >51 mL/min Normal 60-69 yrs >45 mL/min Normal 70-79 yrs >39 mL/min Normal 80 and above >32 mL/min Normal Lipase: (KAVITA: 01/13/2020 14:13) ( MsgRcvd 01/13/2020 14:43) Final results Test Result Flag Units (Reference) LIPASE 32 U/L (13 - 60) Lactic Acid: (KAVITA: 01/13/2020 14:13) ( [facility] 01/13/2020 14:35) Final results Test Result Flag Units (Reference) LACTIC ACID 1.9 MMOL/L (0.2 - 2.2) Urinalysis: (KAVITA: 01/13/2020 13:56) ( [facility] 01/13/2020 14:06) Final results Test Result Flag Units (Reference) URINALYSIS URINALYSIS SOURCE R COLOR yellow (NORMAL: Yello CLARITY clear (NORMAL: Clear SPEC GRAVITY 1.005 (1.001 - 1.030 pH 8 (5 - 9) GLUCOSE NORM (NORMAL: Negat BILIRUBIN NEG (NORMAL: Negat KETONE NEG (NORMAL: Negat PROTEIN NEG (NORMAL: Negat NITRITE NEG (NORMAL: Negat BLOOD NEG (NORMAL: Negat LEUK EST NE G (NORMAL: Negat UROBILINOGEN NOR (less than 1.0 MICROSCOPIC Not Indicate Chest Portable 1 View: (KAVITA: 01/13/2020 13:56) ( [facility] 01/13/2020 14:19) In Progress CHEST PORTABLE Reason(s): Shortness of Breath TRANSPORTATION: IV? O2? Oxygen?(No) Room: ED CMTS: s/p seizure. r/o aspiration.PROGRESS AND PROCEDURESCourse of Care: I spoke to Dr. Hester. We discussed the case. Pt is fairly new to his practice. He hasnot obtained notes from pt's previous doctor. Will recommend pt to continue all medications. a Topamaxlevel was sent out. I made Dr. Hester aware. Labs, CT head, and CXR show no acute findings. pt stateshe had approx 10 seizures today. He has no abrasion to his tongue. Pt encouraged to not take part in any 5 Clinical Report - Physicians/Mid Levels [facility] Emergency Department [address] [place] [address] Phone #: ext- [phone] 01/13/2020 13:41 Patient: NICK TRUJILLO Sex: M : 1990 Age: 29y activities that might cause him harm if he has a seizure. pt voiced understanding of instructions. Patient/family counseled. Disposition: Discharged. Condition: good and stable.CLINICAL IMPRESSION Seizure.INSTRUCTIONS No driving or operating machinery. (Please do not do any activities that might cause you harm if you have a seizure. please follow up with Dr. Hester in the next 2-3 days. Take all medications as previously instructed. return if worse or any new symptoms.). Your Current Medications: Your current home medications have been reviewed. CONTINUE TAKING THE FOLLOWING MEDICATIONS: Albuterol Sulfate Inhalation : prn. Gabapentin Oral : Capsule 100 mg, daily. Incruse Ellipta Inhalation : daily. Lisinopril-hydroCHLOROthiazide Oral : Tablet 20-25 mg, daily. Lopid Oral : Tablet 600 mg, 2x a day. Mobic Oral : daily. Perforomist Inhalation : Nebulization Solution 20 mcg/2mL, q4h. Pristiq Oral : Tablet Extended Release 24 Hour 50 mg, daily. Singulair Oral : 10 mg daily. Stool Softener Oral : Capsule 100 mg, daily. Sucralfate Oral : 1 gm 4x a day. SUMAtriptan Succinate Oral : Tablet 100 mg, daily. Theophylline Oral : 400 mg 2x a day. Topamax Oral : daily. Zofran ODT Oral : prn. Follow-up: Follow up with a neurologist- as recommended by your health care provider- even if well. Call for an appointment. Follow up with your doctor in two days even if well. Call for an appointment. Reason for referral: evaluation and treatment. Summary of care provided to patient via paper. Understanding of the discharge instructions verbalized by patient. 6 Clinical Report - Physicians/Mid Levels [facility] Emergency Department [address] [place] [address] Phone #: [phone] 01/13/2020 13:41 Patient: NICK TRUJILLO Sex: M : 1990 Age: 29y(Electronically signed by Milagros Morse MD 01/15/2020 22:42) Name Value Range Interpretation Code Description Data Giovana rce(s) Supporting Document(s) ID Date Data Source [id number] 12/31/2019 01:56:00 [place] [address] OPERATIVE SUMMARYNAME: GAVIOTA Madison DATE OF : 1990ATTENDING PHYS: SALVADOR KAMARA MD DATE: 12/31/19 MR#: [id number] OF PROCEDURE: 12/31/2019PRE-OPERATIVE DIAGNOSIS:Microscopic hematuria.POST-OPERATIVE DIAGNOSIS:Microscopic hematuria.PROCEDURE PERFORMED:Flexible cy stoscopy.ATTENDING SURGEON: Dr. Salvador Kamara.PHYSICIAN HEMSTITCHING MACHINE OPERATOR: CLYDE Farias.ANESTHESIA: Local.ESTIMATED BLOOD LOSS: Minimal.COMPLICATIONS: None.DRAINS: None.DISPOSITION: To the Ambulatory Surgical Unit.CONDITION: Stable.INTRAOPERTATIVE FINDINGS:Multiple diffuse non-obstructing urethra strictures.DETAILS OF PROCEDURE:After a detailed informed consent was obtained from Mr. Trujillo, he was wheeled into theoperating room and installed on the operating table in the supine position. The penoscrotal area wasthen cleaned, prepped, and draped in the usual sterile fashion. After the proper time out procedureswere carried out, cystourethroscopy with a flexible cystoscope was then performed. Of note is thefact that the patient had a severely buried penis and the suprapubic fat had to be retracted to be ableto get into the urethral meatus. The flexible cystoscopy was performed without much difficulty.Multiple concentric stricture rings were noted throughout the urethra. No dense or long strictures [address] [place] [id number] OPERATIVE SUMMARYNAME: GAVIOTA Madison DATE OF : 1990ATTENDING PHYS: SALVADOR KAMARA MD DATE: 12/31/19 MR#: [id number] noted. The rest of the cystoscopy was unremarkable. Upon completion, the bladder wasemptied, the cystoscope was withdrawn, the patient was transferred onto a stretcher, andsubsequently transferred to the Ambulatory Surgical Unit in stable condition.He will be seen in follow up in six months for repeat urinalysis.Copies of this report to Dr. Hester.DD: SALVADOR KAMARA MD 12/31/19 12:20DT: VERNON 12/31/19 13:49DS: SALVADOR KAMARA MD 01/14/20 09:34 2 Name Value Range Interpretation Code Description Data Giovana rce(s) Supporting Document(s) ID Date Data Source [id number] 01/13/2020 02:58:00 PM EDT [facility] ([facility]) Name Value Range Interpretation Code Description Data Giovana rce(s) Supporting Document(s) Topiramate [Mass/volume] in Serum or Plasma 8.7 ug/mL 2.0-25.0 [facility] ([facility]) This test was developed and its performa nce characteristics determined by [facility]. It has not been cleared or approved by the Food and Drug Administration. Detection Limit = 1.0 ID Date Data Source [id number] 01/17/2020 08:03:00 PM EDT [facility] Name Value Range Interpretation Code Description Data Giovana rce(s) Supporting Document(s) Topiramate [Mass/volume] in Serum or Plasma 8.7 ug/mL 2.0-25.0 [facility] This test was developed and its performa nce characteristicsdetermined by [facility]. It has not been cleared or approvedby the Food and Drug Administration. Detection Limit = 1.0 ID Date Data Source [id number] 01/13/2020 02:13:00 PM EDT [facility] ([facility]) Name Value Range Interpretation Code Description Data Giovana rce(s) Supporting Document(s) CBC W/Automated Diff Laboratory test result [facility] ([facility]) COMPLETE BLOOD COUNT WBC 8.6 10^3/uL 4.2-11.0 [facility] ([facility]) RBC 5.69 10^6/uL 4.50-6.30 [facility] ([facility]) Hemoglobin 16.2 g/dL 14.0-16.0 Above high normal [facility] ([facility]) Hematocrit 50.7 % 41.0-51.0 [facility] ([facility]) MCH 28.5 pg 27.0-34.0 [facility] ([facility]) MCV 89.1 fL 80.0-94.0 [facility] ([facility]) RDW 13.7 % 11.5-14.8 [facility] ([facility]) MCHC 32.0 g/dL 31.0-36.0 [facility] ([facility]) Platelets 212 10^3/uL 150-450 [facility] ([facility]) MPV 9.0 fL 7.4-10.4 [facility] ([facility]) Neut 68.4 % 37.0-80.0 [facility] ([facility]) Lymph 20.7 % 25.0-40.0 Below low normal [facility] ( [facility]) [place] 7.7 % 3.0-8.0 [facility] ([facility]) Baso 0.1 % 0.0-2.0 [facility] ([facility]) Eos 2.9 % 0.0-7.0 [facility] ([facility]) %Ig 0.2 % 0.0-0.0 Above high normal [facility] ([facility]) #Neut 5.84 10^3/uL 2.00-6.90 [facility] ([facility]) %NRBC 0.0 % 0.0-0.0 [facility] ([facility]) #Lymph 1.77 10^3/uL 0.60-3.40 [facility] ([facility]) #Baso 0.01 10^3/uL 0.00-0.20 [facility] ([facility]) #[place] 0.66 10^3/uL 0.00-0.90 [facility] ([facility]) #Eos 0.25 10^3/uL 0.00-0.70 [facility] ([facility]) #Ig 0.02 10^3/uL 0.00-0.10 [facility] ([facility]) RBC Morph Laboratory test result [facility] ([facility]) #NRBC 0.00 10^3/uL 0.00-0.00 [facility] ([facility]) Manual Diff Laboratory test result [facility] ([facility]) ID Date Data Source [id number] 01/13/2020 02:13:00 PM EDT [facility] ([facility]) Name Value Range Interpretation Code Description Data Giovana rce(s) Supporting Document(s) Lipase [Enzymatic activity/volume] in Serum or Plasma 32 U/L 13-6 0 [facility] ([facility]) Lactate [Mass/volume] in Serum or Plasma 1.9 mmol/L 0.2-2.2 [facility] ([facility]) ID Date Data Source [id number] 01/13/2020 02:13:00 PM EDT [facility] ([facility]) Name Value Range Interpretation Code Description Data Giovana rce(s) Supporting Document(s) Comprehensive [employer] Laboratory test result [facility] ([facility]) COMPREHENSIVE METABOLIC PANEL Sodium 143 meq/L 134-153 [facility] ([facility]) Co2 24 meq/L 22-30 [facility]) Chloride 108 meq/L 98-107 Above high normal [facility] ([facility]) Potassium 4.0 meq/L 3.6-5.0 [facility] ([facility]) Creatinine 0.9 mg/dL 0.7-1.5 [facility] ([facility]) BUN 12 mg/dL 7-21 [facility] ([facility]) Glucose 141 mg/dL 65-110 Above high normal [facility] ([facility]) Total Protein 7.6 g/dL 6.3-8.2 [facility] ([facility]) Albumin 4.4 g/dL 3.9-5.0 [facility] ([facility]) BUN/Creat 13 8-27 [facility] ([facility]) Globulin 3.2 GM/DL 2.4-3.2 [facility]) Calcium 9.1 mg/dL 8.4-10.2 [facility] ([facility]) A/G Ratio 1.4 0.8-2.0 [facility] ([facility]) Total Bili Laboratory test result 0.2-1.3 [facility] ([facility]) Alkaline Phos 96 U/L 38-126 [facility] ([facility]) Sgot/Ast 20 U/L 5-40 [facility] ([facility]) Age 29 yrs [facility]) Anion Gap 11.0 mmol/L 8.0-16.0 [facility] ([facility]) SGPT/Alt 29 U/L 7-56 [facility] ([facility]) Non-Aa GFR Laboratory test result [facility] ([facility]) Afr Amer GFR Laboratory test result [facility] ([facility]) Male GFR Interprentation 20-49 yrs >60 mL/min Normal 50-59 yrs >56 mL/min Normal 60-69 yrs >49 mL/min Normal 70-79yrs >42 mL/min Normal 80 and above >35 mL/min Normal Female GFR Interpretation 20-39 yrs >60 mL/min Normal 40-49 yrs >58 mL/min Normal 50-59 yrs >51 mL/min Normal 60-69 yrs >45 mL/min Normal 70-79 yrs >39 mL/min Normal 80 and above >32 mL/min Normal ID Date Data Source [id number] 01/13/2020 02:56:00 PM EDT [facility] Name Value Range Interpretation Code Description Data Giovana rce(s) Supporting Document(s) COMPREHENSIVE METABOLIC PANEL [facility] COMPREHENSIVE METABOLIC PANEL Sodium [Moles/volume] in Serum or Plasma 143 mEq/L 134 - 153 [facility] Potassium [Moles/volume] in Serum or Plasma 4.0 mEq/L 3.6 - 5.0 [facility] Chloride [Moles/volume] in Serum or Plasma 108 mEq/L 98 - 107 H [facility] Carbon dioxide, total [Moles/volume] in Serum or Plasma 24 MEQ/L 22 - 30 [facility] Glucose [Mass/volume] in Serum or Plasma 141 MG/DL 65 - 110 H [facility] BUN 12 MG/DL 7 - 21 [facility] Creatinine [Mass/volume] in Serum or Plasma 0.9 MG/DL 0.7 - 1.5 [facility] BUN/CREAT 13 8 - 27 [facility] Protein [Mass/volume] in Serum or Plasma 7.6 G/DL 6.3 - 8.2 [facility] Albumin [Mass/volume] in Serum or Plasma 4.4 G/DL 3.9 - 5.0 [facility] Globulin [Mass/volume] in Serum by calculation 3.2 GM/DL 2.4 - 3.2 [facility] A/G RATIO 1.4 0.8 - 2.0 [facility] Calcium [Mass/volume] in Serum or Plasma 9.1 MG/DL 8.4 - 10.2 [facility] Bilirubin.total [Mass/volume] in Serum or Plasma <0.7 MG/DL 0.2 - 1.3 [facility] Alkaline phosphatase [Enzymatic activity/volume] in Serum or Plasma 96 U/L 38 - 126 [facility] Aspartate aminotransferase [Enzymatic activity/volume] in Serum or Plasma 20 U/L 5 - 40 [facility] Alanine aminotransferase [Enzymatic activity/volume] in Seru m or Plasma 29 U/L 7 - 56 [facility] Anion gap 3 in Serum or Plasma 11.0 mmol/L 8.0 - 16.0 [facility] AGE 29 yrs [facility] al NON-AA GFR >60 mL/min [facility] ital AFR AMER GFR >60 mL/min [facility] spital Male GFR In terprentation 20-49 yrs >60 mL/min Normal 50-59 yrs >56 mL/min Normal 60-69 yrs >49 mL/min Normal 70-79yrs >42 mL/min Normal 80 and above >35 mL/min Normal Female GFR Interpretation 20-39 yrs >60 mL/min Normal 40-49 yrs >58 mL/min Normal 50-59 yrs >51 mL/min Normal 60-69 yrs >45 mL/min Normal 70-79 yrs >39 mL/min Normal 80 and above >32 mL/min Normal ID Date Data Source [id number] 01/13/2020 02:43:00 PM EDT [facility] Name Value Range Interpretation Code Description Data Giovana rce(s) Supporting Document(s) Lipase [Enzymatic activity/volume] in Serum or Plasma 32 U/L 13 - 60 [facility] ID Date Data Source [id number] 01/13/2020 02:35:00 PM EDT [facility] Name Value Range Interpretation Code Description Data Giovana rce(s) Supporting Document(s) Lactate [Moles/volume] in Serum or Plasma 1.9 MMOL/L 0.2 - 2.2 [facility] ID Date Data Source [id number] 01/13/2020 02:27:00 PM EDT [facility] Name Value Range Interpretation Code Description Data Giovana rce(s) Supporting Document(s) CBC W/AUTOMATED DIFF [facility] COMPLETE BLOOD COUNT Leukocytes [#/volume] in Blood by Automated count 8.6 10^3/uL 4.2 - 1 1.0 [facility] Erythrocytes [#/volume] in Blood by Automated count 5.69 10^6/uL 4. 50 - 6.30 [facility] Hemoglobin [Mass/volume] in Blood 16.2 g/dL 14.0 - 16.0 H [facility] Hematocrit [Volume Fraction] of Blood by Automated count 50.7 % 4 1.0 - 51.0 [facility] Erythrocyte mean corpuscular volume [Entitic volume] by Auto mated count 89.1 fL 80.0 - 94.0 [facility] Erythrocyte mean corpuscular hemoglobin [Entitic mass] by Automated count 28.5 pg 27.0 - 34.0 [facility] Erythrocyte mean corpuscular hemoglobin concentration [Mass/volume] by Automated count 32.0 g/dL 31.0 - 36.0 [facility] Erythrocyte distribution width [Ratio] by Automated count 13.7 % 11.5 - 14.8 [facility] Platelets [#/volume] in Blood by Automated count 212 10^3/uL 150 - 45 0 [facility] Platelet mean volume [Entitic volume] in Blood by Automated count 9.0 fL 7.4 - 10.4 [facility] Neutrophils/100 leukocytes in Blood by Automated count 68.4 % 37. 0 - 80.0 [facility] Lymphocytes/100 leukocytes in Blood by Manual count 20.7 % 25.0 - 40.0 L [facility] Monocytes/100 leukocytes in Blood by Automated count 7.7 % 3.0 - 8.0 [facility] Eosinophils/100 leukocytes in Blood by Automated count 2.9 % 0.0 - 7.0 [facility] Basophils/100 leukocytes in Blood by Automated count 0.1 % 0.0 - 2.0 [facility] %IG 0.2 % 0.0 - 0.0 [facility]NR[facility] 0.0 % 0.0 - 0.0 [facility] Neutrophils [#/volume] in Blood by Automated count 5.84 10^3/uL 2.00 - 6.90 [facility] Lymphocytes [#/volume] in Blood by Automated count 1.77 10^3/uL 0.60 - 3.40 [facility] Monocytes [#/volume] in Blood by Automated count 0.66 10^3/uL 0.00 - 0.90 [facility] Eosinophils [#/volume] in Blood by Automated count 0.25 10^3/uL 0.00 - 0.70 [facility] Basophils [#/volume] in Blood by Automated count 0.01 10^3/uL 0.00 - 0.20 [facility] #IG 0.02 10^3/uL 0.00 - 0.10 [facility] ospital #NRBC 0.00 10^3/uL 0.00 - 0.00 [facility] MANUAL DIFF NOT INDICATED [facility] RBC MORPH NOT INDICATED [facility] spital ID Date Data Source [id number] 01/13/2020 01:56:00 PM EDT [facility] ([facility]) Name Value Range Interpretation Code Description Data Giovana rce(s) Supporting Document(s) Urinalysis Laboratory test result [facility] ([facility]) URINALYSIS Source Laboratory test result [facility] ([facility]) SOURCE: Clean Catch Color Laboratory test result [facility] ([facility]) SOURCE: Clean Catch Clarity Laboratory test result [facility] ([facility]) SOURCE: Clean Catch Spec [place] 1.005 1.001-1.030 [facility] ([facility]) SOURCE: Clean Catch pH 8 5-9 [facility] ([facility]) SOURCE: Clean Catch Bilirubin Laboratory test result [facility] ([facility]) SOURCE: Clean Catch Glucose Laboratory test result [facility] ([facility]) SOURCE: Clean Catch Ketone Laboratory test result [facility] ([facility]) SOURCE: Clean Catch Protein Laboratory test result [facility] ([facility]) SOURCE: Clean Catch Blood Laboratory test result [facility] ([facility]) SOURCE: Clean Catch Nitrite Laboratory test result [facility] ([facility]) SOURCE: Clean Catch Leuk Est Laboratory test result [facility] ([facility]) SOURCE: Clean Catch Urobilinogen Laboratory test result [facility] ([facility]) SOURCE: Clean Catch Microscopic Laboratory test result [facility] ([facility]) SOURCE: Clean Catch ID Date Data Source [id number] 01/13/2020 02:06:00 PM EDT [facility] Name Value Range Interpretation Code Description Data Giovana rce(s) Supporting Document(s) [facility] COL[facility] yellow NORMAL: Yellow [facility] CLARITY clear NORMAL: Clear [facility] Specific gravity of Urine by Test strip 1.005 1.001 - 1.030 [facility] pH 8 5 - 9 [facility] Glucose [Mass/volume] in Urine by Test strip NORM NORMAL: Negat [facility] Bilirubin.total [Presence] in Urine by Test strip NEG NORMAL: Negative [facility] Ketones [Presence] in Urine by Test strip NEG NORMAL: Negative [facility] Protein [Mass/volume] in Urine by Test strip NEG NORMAL: Negat rebekah [facility] Nitrite [Presence] in Urine by Test strip NEG NORMAL: Negative [facility] BLOOD NEG NORMAL: Negative [facility] Leukocyte esterase [Presence] in Urine by Test strip NEG MILAGROS L: Negative [facility] Urobilinogen [Mass/volume] in Urine by Test strip NOR less vanessa n 1.0 mg/dL [facility] MICROSCOPIC Not Indicate [facility] ID Date Data Source [id number] 01/12/2020 01:25:00 PM EDT [facility] ([facility]) Name Value Range Interpretation Code Description Data Giovana rce(s) Supporting Document(s) Ribs Unilat W/PA CXR LT Laboratory test result [facility] ([facility]) ID Date Data Source [id number] 12/28/2019 09:15:00 AM EDT [facility] ([facility]) Name Value Range Interpretation Code Description Data Giovana rce(s) Supporting Document(s) Coronavirus Covid-19 Laboratory test result [facility] ([facility]) This test was developed and its performa nce characteristics determined by [facility]. This test has not been FDA cleared or approved. This test has been authorized by FDA under an Emergency Use Authorization (EUA). This test is only authorized for the duration of time the declaration that circumstances exist justifying the authorization of the emergency use of in vitro diagnostic tests for detection of SARS-CoV-2 virus and/or diagnosis of COVID-19 infection under section 564(b)(1) of the Act, 21 U.S.C. 360bbb-3(b)(1), unless the authorization is terminated or revoked sooner. When diagnostic testing is negative, the possibility of a false negative result should be considered in the context of a patient's recent exposures and the presence of clinical signs and symptoms consistent with COVID-19. An individual without symptoms of COVID-19 and who is not shedding SARS-CoV-2 virus would expect to have a negative (not detected) result in this assay. ID Date Data Source [id number] 12/28/2019 09:15:00 AM EDT [facility] Name Value Range Interpretation Code Description Data Giovana rce(s) Supporting Document(s) SARS CORONAVIRUS 2 RNA [facility] This lab was ordered by [facility] Haider huerta and reported by [facility]. ID Date Data Source [id number] 12/30/2019 06:32:00 AM EDT [facility] Name Value Range Interpretation Code Description Data Giovana rce(s) Supporting Document(s) SARS-CoV-2, TYRON Not Detected Not Detected [facility] This test was developed and its performa nce characteristics determinedby [facility]. This test has not been FDA cleared orapproved. This test has been authorized by FDA under an Emergency UseAuthorization (EUA). This test is only authorized for the duration oftime the declaration that circumstances exist justifying theauthorization of the emergency use of in vitro diagnostic tests fordetection of SARS-CoV-2 virus and/or diagnosis of COVID-19 infectionunder section 564(b)(1) of the Act, 21 U.S.C. 360bbb-3(b)(1), unlessthe authorization is terminated or revoked sooner.When diagnostic testing is negative, the possibility of a falsenegative result should be considered in the context of a patient'srecent exposures and the presence of clinical signs and symptomsconsistent with COVID-19. An individual without symptoms of COVID-19and who is not shedding SARS-CoV-2 virus would expect to have anegative (not detected) result in this assay. ID Date Data Source [id number] 11/22/2019 09:49:00 AM EDT [facility] [address] [place] [address] PHONE: [phone] FAX: [phone] Name .................. : GAVIOTA Madison Acct Number.................. : [id number] ROOM. ................. : MR Number ................... : [id number] Stay type ............. : O/P Discharge Date......... ... : 04/24/20 Admit Date ......... : 11/19/19 Admit Phys .................... : HESTER HARD Date of ....... : 1990 Family Phys ................... : HESTER HARD Phone .................. : [phone] Age ................................ : 29 Film# .................. .:[id number] Sex ................................. : M Unsigned transcriptions are preliminary reports and do not represent a medical or legal document SPINE LS COMPLETE [id number] COMPLETE:11/19/19 10:39 [id number] (SPINE PROC REASON: PAIN LUMBAR SPINE X-RAY: FINDINGS: Mild degenerative changes are noted at the vertebral body endplates and the facet articulations. There is no acute fracture, subluxation, focal osseous lesion or pars defect. IMPRESSION: Mild degenerative spondylosis. No acute osseous or joint space abnormality. Electronically Reviewed and Signed By Mami Werner MD , 11/22/19 09:49, KGKrysta Transcribe Initials: GUCCI , Transcribe Date: 11/19/19 15:31, Dictation Date: Copy for: [address] [place] [address] REC Page 1 of 1 Name Value Range Interpretation Code Description Data Giovana rce(s) Supporting Document(s) ID Date Data Source [id number] 11/22/2019 09:49:00 AM EDT [facility] [address] [place] [address] PHONE: [phone] FAX: [phone] Name .................. : GAVIOTA Madison Acct Number.................. : [id number] ROOM. ................. : Number ................... : [id number] Stay type ............. : O/P Discharge Date......... ... : 11/19/19 Admit Date ......... : 11/19/19 Admit Phys .................... : HESTER HARD Date of ....... : 1990 Family Phys ................... : [employer] HARD Phone .................. : [phone] Age ................................ : 29 Film# .................. .:[id number] Sex ................................. : M Unsigned transcriptions are preliminary reports and do not represent a medical or legal document SPINE THORACIC [id number] COMPLETE:11/19/19 10:39 [id number] (SPINE PROC REASON: PAIN THORACIC SPINE SERIES: FINDINGS: Moderate degenerative spondylosis is seen on vertebral body endplates. Acute fracture, subluxation or focal osseous lesion is not seen. The paraspinal soft tissues are unremarkable. IMPRESSION: Degenerative spondylosis. No acute osseous or joint space abnormality. Electronically Reviewed and Signed By Mami Werner MD , 11/22/19 09:49, KGG Transcribe Initials: GUCCI , Transcribe Date: 11/19/19 15:30, Dictation Date: Copy for: 710 MED REC Page 1 of 1 Name Value Range Interpretation Code Description Data Giovana rce(s) Supporting Document(s) ID Date Data Source [id number] 11/18/2019 03:15:00 PM EDT [facility] ([facility]) Name Value Range Interpretation Code Description Data Giovana rce(s) Supporting Document(s) Source Laboratory test result [facility] ([facility]) Is patient fasting? N {SOURCE: Random Void~NURSE COLLECTED? N Is patient fasting? N Urinalysis Laboratory test result [facility] ([facility]) Is patient fasting? N {SOURCE: Random Void~NURSE COLLECTED? N Is patient fasting? N Color Laboratory test result [facility] ([facility]) Is patient fasting? N {SOURCE: Random Void~NURSE COLLECTED? N Is patient fasting? N Clarity Laboratory test result [facility] ([facility]) Is patient fasting? N {SOURCE: Random Void~NURSE COLLECTED? N Is patient fasting? N Glucose Laboratory test result [facility] ([facility]) Is patient fasting? N {SOURCE: Random Void~NURSE COLLECTED? N Is patient fasting? N pH 5 5-9 [facility] ([facility]) Is patient fasting? N {SOURCE: Random Void~NURSE COLLECTED? N Is patient fasting? N Spec [place] 1.015 1.001-1.030 [facility] ([facility]) Is patient fasting? N {SOURCE: Random Void~NURSE COLLECTED? N Is patient fasting? N Bilirubin Laboratory test result [facility] ([facility]) Is patient fasting? N {SOURCE: Random Void~NURSE COLLECTED? N Is patient fasting? N Protein Laboratory test result [facility] ([facility]) Is patient fasting? N {SOURCE: Random Void~NURSE COLLECTED? N Is patient fasting? N Ketone Laboratory test result [facility] ([facility]) Is patient fasting? N {SOURCE: Random Void~NURSE COLLECTED? N Is patient fasting? N Blood Laboratory test result [facility] ([facility]) Is patient fasting? N {SOURCE: Random Void~NURSE COLLECTED? N Is patient fasting? N Nitrite Laboratory test result [facility] ([facility]) Is patient fasting? N {SOURCE: Random Void~NURSE COLLECTED? N Is patient fasting? N Microscopic Laboratory test result [facility] ([facility]) Is patient fasting? N {SOURCE: Random Void~NURSE COLLECTED? N Is patient fasting? N Leuk Est Laboratory test result [facility] ([facility]) Is patient fasting? N {SOURCE: Random Void~NURSE COLLECTED? N Is patient fasting? N Urobilinogen Laboratory test result [facility] ([facility]) Is patient fasting? N {SOURCE: Random Void~NURSE COLLECTED? N Is patient fasting? N ID Date Data Source [id number] 11/18/2019 03:15:00 PM EDT [facility] ([facility]) Name Value Range Interpretation Code Description Data Giovana rce(s) Supporting Document(s) Thyrotropin [Units/volume] in Serum or Plasma 1.85 uIU/mL 0.47-5.01 [facility] ([facility]) Is patient fasting? N {SOURCE: Random Void~NURSE COLLECTED? N Is patient fasting? N Thyroxine (T4) free [Mass/volume] in Serum or Plasma 0.72 ng/dL 0.93-1.70 Below low normal [facility] ([facility]) Is patient fasting? N {SOURCE: Random Void~NURSE COLLECTED? N Is patient fasting? N Hemoglobin A1c/Hemoglobin.total in Blood 4.3 % 4.4-6.1 Below low normal [facility] ([facility]) Is patient fasting? N {SOURCE: Random Void~NURSE COLLECTED? N Is patient fasting? N ID Date Data Source [id number] 11/18/2019 03:15:00 PM EDT [facility] ([facility]) Name Value Range Interpretation Code Description Data Giovana rce(s) Supporting Document(s) Cve Panel Laboratory test result [facility] ([facility]) Is patient fasting? N {SOURCE: Random Void~NURSE COLLECTED? N Is patient fasting? N Cholesterol 220 mg/dL 131-200 Above high normal [facility] ([facility]) Is patient fasting? N {SOURCE: Random Void~NURSE COLLECTED? N Is patient fasting? N HDL 46 mg/dL 29-86 [facility] ([facility]) Is patient fasting? N {SOURCE: Random Void~NURSE COLLECTED? N Is patient fasting? N Triglycerides 250 mg/dL 35-160 Above high normal [facility] ([facility]) Is patient fasting? N {SOURCE: Random Void~NURSE COLLECTED? N Is patient fasting? N LDL/HDL 3.46 1.00-3.55 [facility] ([facility]) Is patient fasting? N {SOURCE: Random Void~NURSE COLLECTED? N Is patient fasting? N LDL 159 mg/dL 65-175 [facility] ([facility]) Is patient fasting? N {SOURCE: Random Void~NURSE COLLECTED? N Is patient fasting? N Risk Factor 4.8 3.4-4.9 [facility] ([facility]) Is patient fasting? N {SOURCE: Random Void~NURSE COLLECTED? N Is patient fasting? N ID Date Data Source [id number] 11/18/2019 03:15:00 PM EDT [facility] ([facility]) Name Value Range Interpretation Code Description Data Giovana rce(s) Supporting Document(s) Comprehensive Metabo Laboratory test result [facility] ([facility]) Is patient fasting? N {SOURCE: Random Void~NURSE COLLECTED? N Is patient fasting? N Chloride 104 meq/L 98-107 [facility] ([facility]) Is patient fasting? N {SOURCE: Random Void~NURSE COLLECTED? N Is patient fasting? N Potassium 4.0 meq/L 3.6-5.0 [facility] ([facility]) Is patient fasting? N {SOURCE: Random Void~NURSE COLLECTED? N Is patient fasting? N Sodium 142 meq/L 134-153 [facility] ([facility]) Is patient fasting? N {SOURCE: Random Void~NURSE COLLECTED? N Is patient fasting? N Co2 27 meq/L 22-30 [facility] ([facility]) Is patient fasting? N {SOURCE: Random Void~NURSE COLLECTED? N Is patient fasting? N Glucose 91 mg/dL 65-110 [facility] ([facility]) Is patient fasting? N {SOURCE: Random Void~NURSE COLLECTED? N Is patient fasting? N BUN/Creat 17 8-27 [facility] ([facility]) Is patient fasting? N {SOURCE: Random Void~NURSE COLLECTED? N Is patient fasting? N BUN 15 mg/dL 7-21 [facility] ([facility]) Is patient fasting? N {SOURCE: Random Void~NURSE COLLECTED? N Is patient fasting? N Creatinine 0.9 mg/dL 0.7-1.5 [facility] ([facility]) Is patient fasting? N {SOURCE: Random Void~NURSE COLLECTED? N Is patient fasting? N Albumin 4.4 g[facility] 3.9[facility] Is patient fasting? N {SOURCE: Random Void~NURSE COLLECTED? N Is patient fasting? N Globulin 3.2 GM/DL 2.4-3.2 [facility] ([facility]) Is patient fasting? N {SOURCE: Random Void~NURSE COLLECTED? N Is patient fasting? N Total Protein 7.6 g/dL 6.3-8.2 [facility] Is patient fasting? N {SOURCE: Random Void~NURSE COLLECTED? N Is patient fasting? N Calcium 9.3 mg/dL 8.4-10.2 [facility] ([facility]) Is patient fasting? N {SOURCE: Random Void~NURSE COLLECTED? N Is patient fasting? N A/G Ratio 1.4 0.8-2.0 [facility] ([facility]) Is patient fasting? N {SOURCE: Random Void~NURSE COLLECTED? N Is patient fasting? N Total Bili Laboratory test result 0.2-1.3 [facility] ([facility]) Is patient fasting? N {SOURCE: Random Void~NURSE COLLECTED? N Is patient fasting? N Alkaline Phos 114 U/L 38-126 [facility] ([facility]) Is patient fasting? N {SOURCE: Random Void~NURSE COLLECTED? N Is patient fasting? N Sgot/Ast 22 U/L 5-40 [facility] ([facility]) Is patient fasting? N {SOURCE: Random Void~NURSE COLLECTED? N Is patient fasting? N Age 29 yrs [facility] ([facility]) Is patient fasting? N {SOURCE: Random Void~NURSE COLLECTED? N Is patient fasting? N SGPT/Alt 34 U/L 7-56 [facility] ([facility]) Is patient fasting? N {SOURCE: Random Void~NURSE COLLECTED? N Is patient fasting? N Anion Gap 11.0 mmol/L 8.0-16.0 [facility] ([facility]) Is patient fasting? N {SOURCE: Random Void~NURSE COLLECTED? N Is patient fasting? N Afr Amer GFR Laboratory test result [facility] ([facility]) Is patient fasting? N {SOURCE: Random Void~NURSE COLLECTED? N Is patient fasting? N Non-Aa GFR Laboratory test result [facility] ([facility]) Is patient fasting? N {SOURCE: Random Void~NURSE COLLECTED? N Is patient fasting? N ID Date Data Source [id number] 11/18/2019 03:15:00 PM EDT [facility] ([facility]) Name Value Range Interpretation Code Description Data Giovana rce(s) Supporting Document(s) RBC 5.74 10^6/uL 4.50-6.30 [facility] ([facility]) Is patient fasting? N {SOURCE: Random Void~NURSE COLLECTED? N Is patient fasting? N CBC W/Automated Diff Laboratory test result [facility] ([facility]) Is patient fasting? N {SOURCE: Random Void~NURSE COLLECTED? N Is patient fasting? N WBC 9.5 10^3/uL 4.2-11.0 [facility] ([facility]) Is patient fasting? N {SOURCE: Random Void~NURSE COLLECTED? N Is patient fasting? N Hemoglobin 16.5 g/dL 14.0-16.0 Above high normal [facility] ([facility]) Is patient fasting? N {SOURCE: Random Void~NURSE COLLECTED? N Is patient fasting? N MCV 87.5 fL 80.0-94.0 [facility] ([facility]) Is patient fasting? N {SOURCE: Random Void~NURSE COLLECTED? N Is patient fasting? N Hematocrit 50.2 % 41.0-51.0 [facility] ([facility]) Is patient fasting? N {SOURCE: Random Void~NURSE COLLECTED? N Is patient fasting? N RDW 13.7 % 11.5-14.8 [facility] ([facility]) Is patient fasting? N {SOURCE: Random Void~NURSE COLLECTED? N Is patient fasting? N MCHC 32.9 g/dL 31.0-36.0 [facility] ([facility]) Is patient fasting? N {SOURCE: Random Void~NURSE COLLECTED? N Is patient fasting? N MCH 28.7 pg 27.0-34.0 [facility] ([facility]) Is patient fasting? N {SOURCE: Random Void~NURSE COLLECTED? N Is patient fasting? N MPV 9.2 fL 7.4-10.4 MED[facility] ([facility]) Is patient fasting? N {SOURCE: Random Void~NURSE COLLECTED? N Is patient fasting? N Platelets 202 10^3/uL 150-450 [facility] ([facility]) Is patient fasting? N {SOURCE: Random Void~NURSE COLLECTED? N Is patient fasting? N Neut 67.2 % 37.0-80.0 [facility] ([facility]) Is patient fasting? N {SOURCE: Random Void~NURSE COLLECTED? N Is patient fasting? N [place] 7.2 % 3.0-8.0 [facility] ([facility]) Is patient fasting? N {SOURCE: Random Void~NURSE COLLECTED? N Is patient fasting? N Eos 3.6 % 0.0-7.0 [facility] ([facility]) Is patient fasting? N {SOURCE: Random Void~NURSE COLLECTED? N Is patient fasting? N Lymph 21.5 % 25.0-40.0 Below low normal [facility] ( [facility]) Is patient fasting? N {SOURCE: Random Void~NURSE COLLECTED? N Is patient fasting? N Baso 0.2 % 0.0-2.0 [facility] ([facility]) Is patient fasting? N {SOURCE: Random Void~NURSE COLLECTED? N Is patient fasting? N %NRBC 0.0 % 0.0-0.0 [facility] ([facility]) Is patient fasting? N {SOURCE: Random Void~NURSE COLLECTED? N Is patient fasting? N %Ig 0.3 % 0.0-0.0 Above high normal [facility] ([facility]) Is patient fasting? N {SOURCE: Random Void~NURSE COLLECTED? N Is patient fasting? N #Neut 6.39 10^3/uL 2.00-6.90 [facility] ([facility]) Is patient fasting? N {SOURCE: Random Void~NURSE COLLECTED? N Is patient fasting? N #Lymph 2.04 10^3/uL 0.60-3.40 [facility] ([facility]) Is patient fasting? N {SOURCE: Random Void~NURSE COLLECTED? N Is patient fasting? N #[place] 0.68 10^3/uL 0.00-0.90 [facility] ([facility]) Is patient fasting? N {SOURCE: Random Void~NURSE COLLECTED? N Is patient fasting? N #Baso 0.02 10^3/uL 0.00-0.20 [facility] ([facility]) Is patient fasting? N {SOURCE: Random Void~NURSE COLLECTED? N Is patient fasting? N #Ig 0.03 10^3/uL 0.00-0.10 [facility] ([facility]) Is patient fasting? N {SOURCE: Random Void~NURSE COLLECTED? N Is patient fasting? N #Eos 0.34 10^3/uL 0.00-0.70 [facility] ([facility]) Is patient fasting? N {SOURCE: Random Void~NURSE COLLECTED? N Is patient fasting? N #NRBC 0.00 10^3/uL 0.00-0.00 [facility] ([facility]) Is patient fasting? N {SOURCE: Random Void~NURSE COLLECTED? N Is patient fasting? N Manual Diff Laboratory test result M [facility]ENT ([facility]) Is patient fasting? N {SOURCE: Random Void~NURSE COLLECTED? N Is patient fasting? N RBC Morph Laboratory test result [facility] ([facility]) Is patient fasting? N {SOURCE: Random Void~NURSE COLLECTED? N Is patient fasting? N ID Date Data Source [id number] 11/18/2019 07:45:00 PM EDT [facility] Name Value Range Interpretation Code Description Data Giovana rce(s) Supporting Document(s) CVE PANEL [facility] LIPID PANEL Cholesterol [Mass/volume] in Serum or Plasma 220 MG/DL 131 - 200 H [facility] Deprecated Triglyceride [Mass/volume] in Serum or Plasma 250 MG/DL 3 5 - 160 H [facility] HDL 46 MG/DL 29 - 86 [facility] Cholesterol in LDL/Cholesterol in HDL [Mass Ratio] in Serum or Plasma 159 mg/dL 65 - 175 [facility] Cholesterol.total/Cholesterol in HDL [Mass Ratio] in Serum o r Plasma 4.8 3.4 - 4.9 [facility] LDL/HDL 3.46 1.00 - 3.55 [facility] ital CVE RISK CHOL/HDL LDL/HDLMEN: 1/2 AVERAGE 3.43 1.00 AVERAGE 4.97 3.55 2X AVERAGE 9.55 6.25 3X AVERAGE 23.99 7.99WOMEN: 1/2 AVERAGE 3.27 1.47 AVERAGE 4.44 3.22 2X AVERAGE 7.05 5.03 3X AVERAGE 11.04 6.14 ID Date Data Source [id number] 11/18/2019 07:27:00 PM EDT [facility] Name Value Range Interpretation Code Description Data Giovana rce(s) Supporting Document(s) [facility] R [facility] COL[facility] yellow NORMAL: Yellow [facility] CLARITY clear NORMAL: Clear [facility] Specific gravity of Urine by Test strip 1.015 1.001 - 1.030 [facility] pH 5 5 - 9 [facility] Glucose [Mass/volume] in Urine by Test strip NORM NORMAL: Negat [facility] Bilirubin.total [Presence] in Urine by Test strip NEG NORMAL: Negative [facility] Ketones [Presence] in Urine by Test strip NEG NORMAL: Negative [facility] Protein [Mass/volume] in Urine by Test strip NEG NORMAL: Negat [facility] Nitrite [Presence] in Urine by Test strip NEG NORMAL: Negative [facility] BLOOD NEG NORMAL: Negative [facility] Leukocyte esterase [Presence] in Urine by Test strip NEG MILAGROS L: Negative [facility] Urobilinogen [Mass/volume] in Urine by Test strip NOR less vanessa n 1.0 mg/dL [facility] MICROSCOPIC Not Indicate [facility] ID Date Data Source [id number] 11/18/2019 07:44:00 PM EDT [facility] Name Value Range Interpretation Code Description Data Giovana rce(s) Supporting Document(s) Hemoglobin A1c/Hemoglobin.total in Blood 4.3 % 4.4 - 6.1 L [facility] {A1]{HB] ID Date Data Source [id number] 11/18/2019 07:54:00 PM EDT [facility] Name Value Range Interpretation Code Description Data Giovana rce(s) Supporting Document(s) Thyroxine (T4) free index in Serum or Plasma by calculation 0.72 NG/DL 0.93 - 1.70 L [facility] ID Date Data Source [id number] 11/18/2019 07:54:00 PM EDT [facility] Name Value Range Interpretation Code Description Data Giovana rce(s) Supporting Document(s) Thyrotropin [Units/volume] in Serum or Plasma by Detec tion limit <= 0.05 mIU/L 1.85 uIU/mL 0.47 - 5.01 [facility] ID Date Data Source [id number] 11/18/2019 07:45:00 PM EDT [facility] Name Value Range Interpretation Code Description Data Giovana rce(s) Supporting Document(s) COMPREHENSIVE METABOLIC PANEL [facility] COMPREHENSIVE METABOLIC PANEL Sodium [Moles/volume] in Serum or Plasma 142 mEq/L 134 - 153 [facility] Potassium [Moles/volume] in Serum or Plasma 4.0 mEq/L 3.6 - 5.0 [facility] Chloride [Moles/volume] in Serum or Plasma 104 mEq/L 98 - 107 [facility] Carbon dioxide, total [Moles/volume] in Serum or Plasma 27 MEQ/L 22 - 30 [facility] Glucose [Mass/volume] in Serum or Plasma 91 MG/DL 65 - 110 [facility] BUN 15 MG/DL 7 - 21 [facility] Creatinine [Mass/volume] in Serum or Plasma 0.9 MG/DL 0.7 - 1.5 [facility] BUN/CREAT 17 8 - 27 [facility] Protein [Mass/volume] in Serum or Plasma 7.6 G/DL 6.3 - 8.2 [facility] Albumin [Mass/volume] in Serum or Plasma 4.4 G/DL 3.9 - 5.0 [facility] Globulin [Mass/volume] in Serum by calculation 3.2 GM/DL 2.4 - 3.2 [facility] A/G RATIO 1.4 0.8 - 2.0 [facility] Calcium [Mass/volume] in Serum or Plasma 9.3 MG/DL 8.4 - 10.2 [facility] Bilirubin.total [Mass/volume] in Serum or Plasma <0.7 MG/DL 0.2 - 1.3 [facility] Alkaline phosphatase [Enzymatic activity/volume] in Serum or Plasma 114 U/L 38 - 126 [facility] Aspartate aminotransferase [Enzymatic activity/volume] in Serum or Plasma 22 U/L 5 - 40 [facility] Alanine aminotransferase [Enzymatic activity/volume] in Seru m or Plasma 34 U/L 7 - 56 [facility] Anion gap 3 in Serum or Plasma 11.0 mmol/L 8.0 - 16.0 [facility] AGE 29 yrs [facility] NON-AA GFR >60 mL/min [facility] ital AFR AMER GFR >60 mL/min [facility] Male GFR In terprentation 20-49 yrs >60 mL/min Normal 50-59 yrs >56 mL/min Normal 60-69 yrs >49 mL/min Normal 70-79yrs >42 mL/min Normal 80 and above >35 mL/min Normal Female GFR Interpretation 20-39 yrs >60 mL/min Normal 40-49 yrs >58 mL/min Normal 50-59 yrs >51 mL/min Normal 60-69 yrs >45 mL/min Normal 70-79 yrs >39 mL/min Normal 80 and above >32 mL/min Normal ID Date Data Source [id number] 11/18/2019 07:34:00 PM EDT [facility] Name Value Range Interpretation Code Description Data Giovana rce(s) Supporting Document(s) CBC W/AUTOMATED DIFF [facility] COMPLETE BLOOD COUNT Leukocytes [#/volume] in Blood by Automated count 9.5 10^3/uL 4.2 - 1 1.0 [facility] Erythrocytes [#/volume] in Blood by Automated count 5.74 10^6/uL 4. 50 - 6.30 [facility] Hemoglobin [Mass/volume] in Blood 16.5 g/dL 14.0 - 16.0 H [facility] Hematocrit [Volume Fraction] of Blood by Automated count 50.2 % 4 1.0 - 51.0 [facility] Erythrocyte mean corpuscular volume [Entitic volume] by Auto mated count 87.5 fL 80.0 - 94.0 [facility] Erythrocyte mean corpuscular hemoglobin [Entitic mass] by Automated count 28.7 pg 27.0 - 34.0 [facility] Erythrocyte mean corpuscular hemoglobin concentration [Mass/volume] by Automated count 32.9 g/dL 31.0 - 36.0 [facility] Erythrocyte distribution width [Ratio] by Automated count 13.7 % 11.5 - 14.8 [facility] Platelets [#/volume] in Blood by Automated count 202 10^3/uL 150 - 45 0 [facility] Platelet mean volume [Entitic volume] in Blood by Automated count 9.2 fL 7.4 - 10.4 [facility] Neutrophils/100 leukocytes in Blood by Automated count 67.2 % 37. 0 - 80.0 [facility] Lymphocytes/100 leukocytes in Blood by Manual count 21.5 % 25.0 - 40.0 L [facility] Monocytes/100 leukocytes in Blood by Automated count 7.2 % 3.0 - 8.0 [facility] Eosinophils/100 leukocytes in Blood by Automated count 3.6 % 0.0 - 7.0 [facility] Basophils/100 leukocytes in Blood by Automated count 0.2 % 0.0 - 2.0 [facility] %IG 0.3 % 0.0 - 0.0 H [facility] %NRBC 0.0 % 0.0 - 0.0 [facility] Neutrophils [#/volume] in Blood by Automated count 6.39 10^3/uL 2.00 - 6.90 [facility] Lymphocytes [#/volume] in Blood by Automated count 2.04 10^3/uL 0.60 - 3.40 [facility] Monocytes [#/volume] in Blood by Automated count 0.68 10^3/uL 0.00 - 0.90 [facility] Eosinophils [#/volume] in Blood by Automated count 0.34 10^3/uL 0.00 - 0.70 [facility] Basophils [#/volume] in Blood by Automated count 0.02 10^3/uL 0.00 - 0.20 [facility] #IG 0.03 10^3/uL 0.00 - 0.10 [facility] #NRBC 0.00 10^3/uL 0.00 - 0.00 [facility] MANUAL DIFF NOT INDICATED [facility] RBC MORPH NOT INDICATED [facility] ID Date Data Source [id number] 11/18/2019 03:08:00 PM EDT [facility] ([facility]) Name Value Range Interpretation Code Description Data Giovana rce(s) Supporting Document(s) Spine LS Complete <pending> [facility] ([facility]) Spine Thoracic <pending> [facility] ([facility]) ID Date Data Source [id number] 10/25/2019 08:46:00 AM EDT [facility] [address] [place] [address] PHONE: [phone] FAX: [phone] Name .................. : GAVIOTA Madison Acct Number.................. : [id number] ROOM. ................. : TR-02 Number ................... : [id number] Stay type ............. : E/R Discharge Date......... ... : 10/21/19 Admit Date ......... : 10/21/19 Admit Phys .................... : KHANH LANTIGUA Date of ....... : 1990 Family Phys ................... : NO PCP Phone .................. : [phone] Age ................................ : 29 Film# .................. .:[id number] Sex ................................. : M Unsigned transcriptions are preliminary reports and do not represent a medical or legal document CT ABD & PELV W/O ORAL W/O IV [id number] COMPLETE:10/21/19 19:36 [facility] [id number] Reason(s): gross hematuria x [address] OF THE ABDOMEN AND PELVIS WITHOUT CONTRAST: TECHNIQUE: CT scan of the abdomen and pelvis is performed without the use of intravenous or oral contrast. COMPARISON: None available. FINDINGS: The study is limited by patient body habitus. No acute changes are noted in the lung bases. The liver is enlarged to 19.2 cm. The spleen is enlarged to 14 cm. There are no adrenal masses. There is no renal or ureteral calculi within the limits of the current study, which again is quite limited due to patient body habitus. The pancreas is not well evaluated without intravenous contrast. The gallbladder is not adequately visualized. There is no intra or retroperitoneal adenopathy by CT size criteria. Evaluation of the pelvis does not demonstrate free fluid. The urinary bladder is not opacified or distended, limiting evaluation. Evaluation of the unopacified bowel does not demonstrate CT evidence of obstruction or focal inflammatory bowel disease. Incomplete distention limits evaluation, especially for wall thickness. Retained feces throughout the colon limits evaluation of the colon. The appendix is not definitely visualized, but there is no CT evidence of inflammatory changes in the right lower quadrant and there are postoperative change in the right lower quadrant. The stomach is filled with debris, limiting evaluation. There is a small hiatal hernia. There is a fat-containing ventral hernia. There are bilateral fat-containing inguinal hernias. Page 1 of 2 [place] [address] PHONE: [phone] FAX: [phone] Name .................. : GAVIOTA Madison Acct Number.................. : [id number] ROOM. ................. : TR-02 MR Number ................... : [id number] Stay type ............. : E/R Discharge Date......... ... : 10/21/19 Admit Date ......... : 10/21/19 Admit Phys .................... : VENERUS BR Date of ....... : 1990 Family Phys ................... : NO PCP Phone .................. : [phone] Age ................................ : 29 Film# .................. .:[id number] Sex ................................. : M Unsigned transcriptions are preliminary reports and do not represent a medical or legal document CT ABD & PELV W/O ORAL W/O IV [id number] COMPLETE:10/21/19 19:36 [facility] [address]79 Reason(s): gross hematuria x 3 weeks Evaluation of the visualized skeleton demonstrates bony demineralization and degenerative changes. IMPRESSION: Study limited by patient body habitus does not demonstrate renal or ureteral calculi. While performing the above CT examination, radiation dose reduction was accomplished utilizing automated exposure control, adjusting of the mA and kV based on the patient's body size and/or the use of imperative reconstructive t echniques. CT dose: 2069.5 mGycm Electronically Reviewed and Signed By Lawrence Betancourt MD , 10/25/19 08:46, AML Transcribe Initials: DZ , Transcribe Date: 10/21/19 21:58, Dictation Date: Copy for: REBECCA PAR[facility] Pickett via fax Copy for: EMERGENCY DEPT via modem Copy for: 710 MED REC DISCHARGED Page 2 of 2 Name Value Range Interpretation Code Description Data Giovana rce(s) Supporting Document(s) ID Date Data Source [id number] 10/21/2019 03:31:00 PM EDT [facility] 1 OrderSheet [facility] Emergency Department [address] [place] [address] Phone #: ext- [phone] 10/21/2019 15:22 Patient: NICK TRUJILLO Sex: M : 1990 Age: 29yWEIGHT:176.4 kg HEIGHT:71 inches BMI:54.3ALLERGIES: Dilantin, Naproxsyn, Tylenol with codeinCHIEF COMPLAINT: dysuriaDIAGNOSIS: Renal colic, Blood in urineLAB ORDERSOrder Description Priority Entered Acknowledged InitialedUrinalysis (Clean STAT 15:30 10/21/2019 15:31 Rehana Crane) Parish TANG; Kota BaeCBC w Diff STAT 16:14 10/21/2019 Ack'd: 16:20 16:44 Parish Crane; Kota Crane R.N. R.N.CMP STAT 16:14 10/21/2019 Ack'd: 16:20 16:44 Parish Crane; Kota Crane R.N. R.N.DIAGNOSTIC STUDY ORDERSOrder Description Priority Entered Acknowledged InitialedCT ABD PEL W/O STAT 16:14 10/21/2019 Ack'd: 16:20 16:44 RoyceOral W/O IV Parish TANG; Kota Crane R.N.Contrast R.N.(Oxygen?(No))(IV?(No)) Reason for Study: gross hematuria x 3 weeksMEDICATION/IV/DRIP/FLUID ORDERSOrder Description Priority Entered Acknowledged InitialedGENERAL ORDERSOrder Description Priority Entered Acknowledged Initialed[Electronically signed by Kota Crane R.N. (17:42 10/21/2019)][Electronically signed by Parish Pedraza (18:16 10/21/2019)][Electronically locked by Kota Crane R.N. (17:42 10/21/2019)] Name Value Range Interpretation Code Description Data Giovana rce(s) Supporting Document(s) ID Date Data Source [id number] 10/21/2019 03:31:00 PM EDT [facility] 1 Medication Reconciliation Report [facility] Emergency Department [address] [place] [address] Phone #: ext- [phone] 10/21/2019 15:22 Patient: NICK TRUJILLO Sex: M : 1990 Age: 29yWeight: 176.4 kgHeight/Length: 71 in.BMI: 54.3ALLERGIES: Dilantin, Naproxsyn, Tylenol with codeinThe patient's Home Medications are listed below:Unable to obtain.The source(s) of the original Home Medication information:Not obtained.The following Medications were given to the patient in the Emergency Department:None.The following Medications were prescribed to the patient:Keflex 500 mg capsule Take 1 capsule every six hours for 7 days -- for painful urination. Dispense 28capsule. Refills: 0. Substitution permitted.Pharmacy - [id number] [address] [place], [place] [id number]. . -- CLYDE Milton Name Value Range Interpretation Code Description Data Giovana rce(s) Supporting Document(s) ID Date Data Source [id number] 10/21/2019 03:31:00 PM EDT [facility] 1 Medication Administration Record [facility] Emergency Department [address] [place] [address] Phone #: ext- [phone] 10/21/2019 15:22 Patient: NICK TRUJILLO Sex: M : 1990 Age: 29yWeight: 176.4 kgHeight/Length: 71 inBMI: 54.3ALLERGIES: Naproxsyn, Tylenol with codein, DilantinDate/Time Medication Administered Medication Ordered Name Value Range Interpretation Code Description Data Giovana rce(s) Supporting Document(s) ID Date Data Source [id number] 10/21/2019 03:31:00 PM EDT [facility] 1 General Instructions [facility] Emergency Department [address] [place] [address] Phone #: ext- [phone] 10/21/2019 15:22 Patient: NICK TRUJILLO Sex: M : 1990 Age: 29yGross hematuriaRenal colic.INSTRUCTIONSNo strenuous activity until better. Rest at home for one days. Do not work for three days.Drink plenty of fluids for the next 48 hours as needed. No sexual contact until symptoms resolve. Do notsmoke. No alcohol.Warnings: Further evaluation is necessary. It is very important to follow up with a healthcare provider.GENERAL WARNINGS: Return or contact your physician immediately if your condition worsens orchanges unexpectedly, if not improving as expected, or if other problems arise. Specifically return if pain,vomiting, bleeding, breathing difficulty or fever.Prescription Medications:Keflex 500 mg capsule Take 1 capsule every six hours for 7 days -- for painful urination. Dispense 28capsule. Refills: 0. Substitution permitted.Pharmacy - [id number] [address] [facility] ; [place], [place] [id number]. .Follow-up:Follow up with your healthcare provider in three days even if well. Call for the next available appointment.Reason for referral: evaluation. Summary of care provided to patient via paper.Understanding of the discharge instructions verbalized by patient. Expected course of illness, dischargeinstructions, activity level and risks and benefits of treatment reviewed with patient and understandingverbalized. Agrees to plan of care. ADDITIONAL INFORMATIONBlood in the Urine 2 General Instructions [facility] Emergency Department [address] [place] [address] Phone #: ext [phone] 10/21/2019 15:22 Patient: NICK TRUJILLO Sex: M : 1990 Age: 29yBlood in the urine (hematuria) has many possible causes. If it occurs after an injury (such as a caraccident or fall), it is most often a sign of bruising to the kidn ey or bladder. Common causes of bloodin the urine include urinary tract infections, kidney stones, inflammation, tumors, or certain otherdiseases of the kidney or bladder. Menstruation can cause blood to appear in the urine sample,although it is not coming from the urinary tract.If only a trace amount of blood is present, it will show up on the urine test, even though the urine maybe yellow and not pink or red. This may occur with any of the above conditions, as well as heavyexercise or high fever. In this case, your doctor may want to repeat the urine test on another day. Thiswill show if the blood is still present. If it is, then other tests can be done to find out the cause.Home careFollow these home care guidelines: If your urine does not appear bloody (pink, brown or red) then you do not need to restrict your activity in any way. If you can see blood in your urine, rest and avoid heavy exertion until your next exam. Do not use aspirin, blood thinners, or anti-platelet or anti- inflammatory medicines. These include ibuprofen and naproxen. These thin the blood and may increase bleeding.Follow-up careFollow up with your healthcare provider, or as advised. If you were injured and had blood in your 3 General Instructions [facility] Emergency Department [address] [place] [address] Phone #: ext- [phone] 10/21/2019 15:22 Patient: NIKC TRUJILLO Sex: M : 1990 Age: 29yurine, you should have a repeat urine test in 1 to 2 days. Contact your doctor for this test.A radiologist will review any X- rays that were taken. You will be told of any new findings that mayaffect your care.When to seek medical adviceCall your healthcare provider right away if any of these occur: Bright red blood or blood clots in the urine (if you did not have this before) Weakness, dizziness or fainting New groin, abdominal, or back pain Fever of 100.4F (38C) or higher, or as directed by your healthcare provider Repeated vomiting Bleeding from the nose or gums or easy bruising [id number] [employer]. [address] [place] [address], [place] [address]. All rights reserved. This information is not intended as asubstitute for professional medical care. Always follow your healthcare professional's instructions. You have been given the following additional information: Hematuria No strenuous activity until better. Rest at home for one days. Do not work for three days.(Electronically signed by CLYDE Milton 10/21/2019 18:16) Name Value Range Interpretation Code Description Data Giovana rce(s) Supporting Document(s) ID Date Data Source [id number] 10/21/2019 03:31:00 PM EDT [facility] 1 Clinical Report - Nurses [facility] Emergency Department [address] [place] [address] Phone #: ext- [phone] 10/21/2019 15:22 Patient: NICK TRUJILLO Sex: M : 1990 Age: 29yTRIAGEHistorian: patient. ( Pt walked to ER, c/o hematuria x 3 weeks stinging sensation).Acuity: LEVEL 4.Chief Complaint: PAIN WITH URINATION.The patient has had discomfort with urination.SEPSIS SCREEN: Negative (no infection suspected/documented). --15:26 10/21/19 Kota Crane R.N.15:22 10/21/19. BP: 147/86. HR: 116. RR: 18. O2 saturation: 98%. Temp: 99.3 F. Pain level now 2/10.--15:26 10/21/19 Kota Crane R.N.Weight: 176.4 kg. Height/Length: 71 inches. BMI: 54.3. --15:24 10/21/19 Kota Crane R.N.MedicationsUnable to Obtain. --17:42 10/21/19 Kota Crane R.N.AllergiesDilantin. --15:25 10/21/19 Kota Crane R.N.Tylenol with codein. --15:25 10/21/19 Kota Crane R.N.Naproxsyn. --15:25 10/21/19 Kota Crane R.N.PROBLEMS:Asthma.Seziures. --15:26 10/21/19 Kota Crane R.N.ADDITIONAL SURGERIES:Hernia Repair. --15:26 10/21/19 Kota Crane R.N.HistorySOCIAL HX: Never smoker. No alcohol use or drug use. He was offered HIV testing but declined andhepatitis C testing but declined. He has not traveled outside the [place]Infectious disease exposure: No infectious disease exposure.SELF HARM ASSESSMENT: Self harm assessment was performed. The patient answered "no" to thequestion(s) "Have you recently felt down, depressed, or hopeless?", "Do you have thoughts of harming orkilling yourself?", "Do you have a plan for harming or killing yourself?", "Have you recently had thoughtsabout harming or killing others?", "Do you have any dangerous items in your possession?", "Have younoticed less interest or pleasure in doing things?", "Are you here because you tried to hurt yourself?" and"Have you ever tried to hurt yourself before today?". 2 Clinical Report - Nurses [facility] Emergency Department [address] [place] [address] Phone #: ext- [phone] 10/21/2019 15:22 Patient: NICK TRUJILLO Sex: M : 1990 Age: 29y ABUSE ASSESSMENT: Abuse assessment. Abuse denied. NUTRITIONAL RISK ASSESSMENT: The nutritional risk assessment revealed no deficiencies. FUNCTIONAL ASSESSMENT: Functional assessment: no impairments noted. LEARNING NEEDS ASSESSMENT: The learning needs assessment revealed no barriers. FALL RISK ASSESSMENT: Fall risk assessment completed. No risk factors identified. SKIN INTEGRITY ASSESSMENT: Skin integrity risk assessment completed. No skin integrity risk identified. --10/21/19 Kota Crane R.N. Interventions Identification band on patient. To treatment room. --10/21/19 Kota Crane R.N.PHYSICAL ASSESSMENT( Pt having trouble remembering meds and history, "i always have trouble").GENERAL / NEURO / PSYCH: Alert. Oriented X 4. Appears in no acute distress.RESPIRATORY: Respirations not labored.CVS: Normal heart rate and rhythm. Capillary refill less than 2 seconds.GI / : Bowel sounds within normal limits. Normal genitalia.SKIN: Skin is warm and dry. --15:30 10/21/19 Kota Crane R.N.NURSING PROGRESS NOTESPatient transported to [place] by wheelchair with sow farm technician. --16:41 10/21/19 Kota Crane R.N. 17:01 10/21/19. BP: 127/71. MAP: 89. HR: 104. RR: 18. O2 saturation: 99%. --17:02 10/21/19 [facility][note 3] Tech, [facility], ER Tech1.DISPOSITION / DISCHARGE 17:38 10/21/19. BP: 125/78. MAP: 93. HR: 98. RR: 18. O2 saturation: 99%. Temp: 98.6 F. --17:38 10/21/19 [facility][note 3] Tech, [place], ER Tech1 Condition at departure: unchanged. Discharge instructions provided and reviewed with the patient. Reviewed medication(s). Prescription(s) sent electronically to pharmacy. Patient verbalized understanding. Written instructions provided in Albanian. The patient was discharged by the physician. He was discharged home. He left ambulatory. Patient driving. --17:41 10/21/19 Kota Crane R.N. 17:41 10/21/19. Pain level now 0/10. --17:41 10/21/19 Kota Crane R.N. 3 Clinical Report - Nurses [facility] Emergency Department [address] [place] [address] Phone #: ext- [phone] 10/21/2019 15:22 Patient: NICK TRUJILLO Sex: M : 1990 Age: 29yLocked/Released at 10/21/2019 17:42 by Kota Crane R.N. Name Value Range Interpretation Code Description Data Giovana rce(s) Supporting Document(s) ID Date Data Source [id number] 10/21/2019 03:31:00 PM EDT [facility] 1 Clinical Report - Physicians/Mid Levels [facility] Emergency Department [address] [place] [address] Phone #: ext- [phone] 10/21/2019 15:22 Patient: NICK TRUJILLO Sex: M : 1990 Age: 29y Time Seen: 15:30 10/21/2019. Arrived- By private vehicle. Historian- patient. Disposition decision: 17:35 10/21/2019.HISTORY OF PRESENT ILLNESS Chief Complaint: DYSURIA. blood in urine. This started about 3 weeks ago; Dysuria and gross hematuria for 3 weeks, denies fever, flank pain, abd pain, NVD, states no sexual activity for > 1yr. The symptoms are described as moderate. Modifying factors. Not worsened by anything. Not relieved by anything. No abdominal pain, pelvic pain, low back pain, flank pain or urinary frequency. No urgency of urination. He has had pain with urination. Not sexually active. Similar symptoms previously. None. Recent medical care: Not recently seen/assessed.REVIEW OF SYSTEMSNo nausea, vomiting, diarrhea, black stools or headache. No fever, chills, anorexia, eye discomfort orsore throat. No cough, difficulty breathing, chest pain, skin rash or enlarged lymph nodes. No joint pain.PAST HISTORYSee nurses notes. Problems: Asthma. Seziures. Additional Surgeries: Hernia Repair. Allergies: Dilantin. Naproxsyn. Tylenol with codein.SOCIAL HISTORYNever smoker. No alcohol use or drug use. No recent travel.ADDITIONAL NOTESThe nursing notes have been reviewed with agreement regarding the chief complaint, HPI, ROS, PMH andpatient medications and allergies. 2 Clinical Report - Physicians/Mid Levels [facility] Emergency Department [address] [place] [address] Phone #: ext- [phone] 10/21/2019 15:22 Patient: NICK TRUJILLO Sex: M : 1990 Age: 29yPHYSICAL EXAMVital Signs: 10/21/2019 15:22 BP: 147/86. MAP: 106. HR: 116. RR: 18. O2 saturation: 98%. Temp: 99.3F. Have been reviewed as abnormal and appear to be correct. Hypertensive. Mean arterial pressure-normal. Tachycardic. Respiratory rate normal. Temperature normal. Oxygen saturation normal.Appearance: Alert. Oriented X3. No acute distress.HEENT: Normal external inspection.ENT: Pharynx normal.Neck: Neck supple.CVS: Heart sounds normal.Respiratory: No respiratory distress. Painless inspiration. Breath sounds normal. Chest nontender.Abdomen: Soft and nontender. Bowel sounds normal. No organomegaly. No mass. Severely obese.Back: Normal external inspection.Skin: Skin warm and dry. Normal skin color. No rash. Normal skin turgor.Extremities: Extremities nontender. No lower extremity edema.Neuro: Oriented X 3. Mood/affect normal. No motor deficit. No sensory deficit.LABS, X-RAYS, AND EKGAbdominal CT: no renal or ureteral calculi seen. Study type: abdomen and pelvis. Abdominal CTperformed without contrast. The study was independently viewed by me and interpreted by theradiologist. Interpretation time: 17:35 10/21/2019.Laboratory Tests: Laboratory tests have been ordered, with results reviewed and considered in themedical decision making process. CBC w Diff: (KAVITA: 10/21/2019 16:27) ( MsgRcvd 10/21/2019 16:43) Final results Test Result Flag Units (Reference) CBC W/AUTOMATED DIFF COMPLETE BLOOD COUNT WBC 9.1 10/uL (4.2 - 11.0) RBC 5.69 10/uL (4.50 - 6.30) HEMOGLOBIN 16.3 H g/dL (14.0 - 16.0) HEMATOCRIT 50.9 % (41.0 - 51.0) MCV 89.5 fL (80.0 - 94.0) MCH 28.6 pg (27.0 - 34.0) MCHC 32.0 g/dL (31.0 - 36.0) RDW 13.9 % (11.5 - 14.8) PLATELETS 224 10/uL (150 - 450) MPV 8.9 fL (7.4 - 10.4) NEUT 72.7 % (37.0 - 80.0) LYMPH 15.4 L % (25.0 - 40.0) MONO 9.1 H % (3.0 - 8.0) EOS 2.4 % (0.0 - 7.0) BASO 0.2 % (0.0 - 2.0) %IG 0.2 H % (0.0 - 0.0) %NRBC 0.0 % (0.0 - 0.0) #NEUT 6.61 10/uL (2.00 - 6.90) #LYMPH 1.40 10/uL (0.60 - 3.40) #MONO 0.83 10/uL (0.00 - 0.90) #EOS 0.22 10/uL (0.00 - 0.70) #BASO 0.02 10/uL (0.00 - 0.20) #IG 0.02 10/uL (0.00 - 0.10) #NRBC 0.00 10/uL (0.00 - 0.00) MANUAL DIFF NOT INDICATED RBC MORPH NOT INDICATED CMP: (KAVITA: 10/21/2019 16:27) ( MsgRcvd 10/21/2019 17:29) Final results 3 Clinical Report - Physicians/Mid Levels [facility] Emergency Department [address] [place] [address] Phone #: ext- [phone] 10/21/2019 15:22 Patient: NICK TRUJILLO Sex: M : 1990 Age: 29y Test Result Flag Units (Reference) COMPREHENSIVE METABOLIC PANEL COMPREHENSIVE METABOLIC PANEL SODIUM 144 mEq/L (134 - 153) POTASSIUM 4.0 mEq/L (3.6 - 5.0) CHLORIDE 106 mEq/L (98 - 107) CO2 25 MEQ/L (22 - 30) GLUCOSE 102 MG/DL (65 - 110) BUN 10 MG/DL (7 - 21) CREATININE 0.8 MG/DL (0.7 - 1.5) BUN/CREAT 13 (8 - 27) TOTAL PROTEIN 7.7 G/DL (6.3 - 8.2) ALBUMIN 4.4 G/DL (3.9 - 5.0) GLOBULIN 3.3 H GM/DL (2.4 - 3.2) A/G RATIO 1.3 (0.8 - 2.0) CALCIUM 9.1 MG/DL (8.4 - 10.2) TOTAL BILI <0.7 MG/DL (0.2 - 1.3) ALKALINE PHOS 104 U/L (38 - 126) SGOT/AST 27 U/L (5 - 40) SGPT/ALT 43 U/L (7 - 56) ANION GAP 13.0 mmol/L (8.0 - 16.0) AGE 29 yrs NON-AA GFR >60 mL/min AFR AMER GFR >60 mL/min Male GFR Interprentation 20-49 yrs >60 mL/min Normal 50-59 yrs >56 mL/min Normal 60-69 yrs >49 mL/min Normal 70-79yrs >42 mL/min Normal 80 and above >35 mL/min Normal Female GFR Interpretation 20-39 yrs >60 mL/min Normal 40-49 yrs >58 mL/min Normal 50-59 yrs >51 mL/min Normal 60-69 yrs >45 mL/min Normal 70-79 yrs >39 mL/min Normal 80 and above >32 mL/min Normal Urinalysis: (KAVITA: 10/21/2019 15:35) ( MsgRcvd 10/21/2019 16:12) Final results Test Result Flag Units (Reference) URINALYSIS URINALYSIS SOURCE Clean Catch COLOR yellow (NORMAL: [place] CLARITY clear (NORMAL: Clear SPEC GRAVITY 1.010 (1.001 - 1.030 pH 5 (5 - 9) GLUCOSE NORM (NORMAL: Negat BILIRUBIN NEG (NORMAL: Negat KETONE NEG (NORMAL: Negat PROTEIN NEG (NORMAL: Negat NITRITE NEG (NORMAL: Negat BLOOD 10 A (NORMAL: Negat LEUK EST NEG (NORMAL: Negat UROBILINOGEN NOR (less than 1.0 MICROSCOPIC See Below RBC 0 - 1 (NORMAL: NONE EPITHELIAL FEW (NORMAL: NONE.PROGRESS AND PROCEDURESDisposition: Discharged home in good and improved condition.Discharge decision based on the following: patient's condition is improved; patient is ambulatory; patient isactive; patient's pain is controlled; patient's exam is improved; improving condition on repeat evaluation;social support is adequate; transportation is available; follow-up is available; clinical impression isconsistent with outpatient treatment. 4 Clinical Report - Physicians/Mid Levels [facility] Emergency Department [address] [place] [address] Phone #: [phone] 10/21/2019 15:22 Patient: NICK TRUJILLO Sex: M : 1990 Age: 29yCLINICAL IMPRESSION Gross hematuria Renal colic (? possible renal colic, ? recently passed renal stone).INSTRUCTIONS No strenuous activity until better. Rest at home for one days. Do not work for three days. Drink plenty of fluids for the next 48 hours as needed. No sexual contact until symptoms resolve. Do not smoke. No alcohol. Warnings: Further evaluation is necessary. It is very important to follow up with a healthcare provider. GENERAL WARNINGS: Return or contact your physician immediately if your condition worsens or changes unexpectedly, if not improving as expected, or if other problems arise. Specifically return if pain, vomiting, bleeding, breathing difficulty or fever. Prescription Medications: Keflex 500 mg capsule Take 1 capsule every six hours for 7 days -- for painful urination. Dispense 28 capsule. Refills: 0. Substitution permitted. Pharmacy - [id number] - [id number] ; [place], [place] [id number]. . Follow- up: Follow up with your healthcare provider in three days even if well. Call for the next available appointment. Reason for referral: evaluation. Summary of care provided to patient via paper. Understanding of the discharge instructions verbalized by patient. Expected course of illness, discharge instructions, activity level and risks and benefits of treatment reviewed with patient and understanding verbalized. Agrees to plan of care.(Electronically signed by CLYDE Milton 10/21/2019 18:16) Name Value Range Interpretation Code Description Data [facility] rce(s) Supporting Document(s) ID Date Data Source [id number] 10/21/2019 04:27:00 PM EDT [facility] ([facility]) Name Value Range Interpretation Code Description Data Giovana rce(s) Supporting Document(s) Comprehensive [facility]abo Laboratory test result [facility] ([facility]) COMPREHENSIVE METABOLIC PANEL Chloride 106 meq/L 98-107 [facility] ([facility]) Potassium 4.0 meq/L 3.6-5.0 [facility] ([facility]) Sodium 144 meq/L 134-153 [facility] ([facility]) Co2 25 meq/L 22-30 [facility] ([facility]) BUN 10 mg/dL 7-21 [facility] ([facility]) Glucose 102 mg/dL 65-110 [facility] ([facility]) Creatinine 0.8 mg/dL 0.7-1.5 [facility] ([facility]) BUN/Creat 13 8-27 [facility] ([facility]) Total Protein 7.7 g/dL 6.3-8.2 [facility] ([facility]) Albumin 4.4 g/dL 3.9-5.0 [facility] ([facility]) Globulin 3.3 GM/DL 2.4-3.2 Above high normal [facility] ([facility]) Calcium 9.1 mg/dL 8.4-10.2 [facility] ([facility]) A/G Ratio 1.3 0.8-2.0 [facility] ([facility]) Total Bili Laboratory test result 0.2-1.3 [facility] ([facility]) Alkaline Phos 104 U/L 38-126 [facility] ([facility]) Sgot/Ast 27 U/L 5-40 [facility] ([facility]) Anion Gap 13.0 mmol/L 8.0-16.0 [facility] ([facility]) SGPT/Alt 43 U/L 7-56 [facility] ([facility]) Age 29 yrs [facility] ([facility]) Afr Amer GFR Laboratory test result [facility] ([facility]) Male GFR Interprentation 20-49 yrs >60 mL/min Normal 50-59 yrs >56 mL/min Normal 60-69 yrs >49 mL/min Normal 70-79yrs >42 mL/min Normal 80 and above >35 mL/min Normal Female GFR Interpretation 20-39 yrs >60 mL/min Normal 40-49 yrs >58 mL/min Normal 50-59 yrs >51 mL/min Normal 60-69 yrs >45 mL/min Normal 70-79 yrs >39 mL/min Normal 80 and above >32 mL/min Normal Non-Aa GFR Laboratory test result [facility] ID Date Data Source [id number] 10/21/2019 04:27:00 PM EDT [facility] ([facility]) Name Value Range Interpretation Code Description Data Giovana rce(s) Supporting Document(s) CBC W/Automated Diff Laboratory test result [facility] ([facility]) COMPLETE BLOOD COUNT WBC 9.1 10^3/uL 4.2-11.0 [facility] ([facility]) RBC 5.69 10^6/uL 4.50-6.30 [facility] ([facility]) Hemoglobin 16.3 g/dL 14.0-16.0 Above high normal [facility] ([facility]) Hematocrit 50.9 % 41.0-51.0 [facility] ([facility]) MCV 89.5 fL 80.0-94.0 [facility] ([facility]) MCH 28.6 pg 27.0-34.0 [facility] ([facility]) RDW 13.9 % 11.5-14.8 [facility] ([facility]) MCHC 32.0 g/dL 31.0-36.0 [facility] ([facility]) MPV 8.9 fL 7.4-10.4 [facility] ([facility]) Platelets 224 10^3/uL 150-450 [facility] ([facility]) Neut 72.7 % 37.0-80.0 [facility] ([facility]) Lymph 15.4 % 25.0-40.0 Below low normal [facility] ( [facility]) [place] 9.1 % 3.0-8.0 Above high normal [facility] ([facility]) Baso 0.2 % 0.0-2.0 [facility] ([facility]) Eos 2.4 % 0.0-7.0 [facility] ([facility]) %Ig 0.2 % 0.0-0.0 Above high normal [facility] ([facility]) %NRBC 0.0 % 0.0-0.0 [facility] ([facility]) #Neut 6.61 10^3/uL 2.00-6.90 [facility] ([facility]) #[place] 0.83 10^3/uL 0.00-0.90 [facility] ([facility]) #Lymph 1.40 10^3/uL 0.60-3.40 [facility] ([facility]) #Eos 0.22 10^3/uL 0.00-0.70 [facility] ([facility]) #Baso 0.02 10^3/uL 0.00-0.20 [facility] ([facility]) #Ig 0.02 10^3/uL 0.00-0.10 [facility] ([facility]) #NRBC 0.00 10^3/uL 0.00-0.00 [facility] ([facility]) Manual Diff Laboratory test result [facility] ([facility]) RBC Morph Laboratory test result [facility] ([facility]) ID Date Data Source [id number] 10/21/2019 05:29:00 PM EDT [facility] Name Value Range Interpretation Code Description Data Giovana rce(s) Supporting Document(s) COMPREHENSIVE METABOLIC PANEL [facility] COMPREHENSIVE METABOLIC PANEL Sodium [Moles/volume] in Serum or Plasma 144 mEq/L 134 - 153 [facility] Potassium [Moles/volume] in Serum or Plasma 4.0 mEq/L 3.6 - 5.0 [facility] Chloride [Moles/volume] in Serum or Plasma 106 mEq/L 98 - 107 [facility] Carbon dioxide, total [Moles/volume] in Serum or Plasma 25 MEQ/L 22 - 30 [facility] Glucose [Mass/volume] in Serum or Plasma 102 MG/DL 65 - 110 [facility] BUN 10 MG/DL 7 - 21 [facility] al Creatinine [Mass/volume] in Serum or Plasma 0.8 MG/DL 0.7 - 1.5 [facility] BUN/CREAT 13 8 - 27 [facility] al Protein [Mass/volume] in Serum or Plasma 7.7 G/DL 6.3 - 8.2 [facility] Albumin [Mass/volume] in Serum or Plasma 4.4 G/DL 3.9 - 5.0 [facility] Globulin [Mass/volume] in Serum by calculation 3.3 GM/DL 2.4 - 3.2 H [facility] A/G RATIO 1.3 0.8 - 2.0 [facility] Calcium [Mass/volume] in Serum or Plasma 9.1 MG/DL 8.4 - 10.2 [facility] Bilirubin.total [Mass/volume] in Serum or Plasma <0.7 MG/DL 0.2 - 1.3 [facility] Alkaline phosphatase [Enzymatic activity/volume] in Serum or Plasma 104 U/L 38 - 126 [facility] Aspartate aminotransferase [Enzymatic activity/volume] in Serum or Plasma 27 U/L 5 - 40 [facility] Alanine aminotransferase [Enzymatic activity/volume] in Seru m or Plasma 43 U/L 7 - 56 [facility] Anion gap 3 in Serum or Plasma 13.0 mmol/L 8.0 - 16.0 [facility] AGE 29 yrs [facility] NON-AA GFR >60 mL/min [facility] AFR AMER GFR >60 mL/min [facility] Male GFR In terprentation 20-49 yrs >60 mL/min Normal 50-59 yrs >56 mL/min Normal 60-69 yrs >49 mL/min Normal 70-79yrs >42 mL/min Normal 80 and above >35 mL/min Normal Female GFR Interpretation 20-39 yrs >60 mL/min Normal 40-49 yrs >58 mL/min Normal 50-59 yrs >51 mL/min Normal 60-69 yrs >45 mL/min Normal 70-79 yrs >39 mL/min Normal 80 and above >32 mL/min Normal ID Date Data Source [id number] 10/21/2019 04:43:00 PM EDT [facility] Name Value Range Interpretation Code Description Data Giovana rce(s) Supporting Document(s) CBC W/AUTOMATED DIFF [facility] COMPLETE BLOOD COUNT Leukocytes [#/volume] in Blood by Automated count 9.1 10^3/uL 4.2 - 1 1.0 [facility] Erythrocytes [#/volume] in Blood by Automated count 5.69 10^6/uL 4. 50 - 6.30 [facility] Hemoglobin [Mass/volume] in Blood 16.3 g/dL 14.0 - 16.0 H [facility] Hematocrit [Volume Fraction] of Blood by Automated count 50.9 % 4 1.0 - 51.0 [facility] Erythrocyte mean corpuscular volume [Entitic volume] by Auto mated count 89.5 fL 80.0 - 94.0 [facility] Erythrocyte mean corpuscular hemoglobin [Entitic mass] by Automated count 28.6 pg 27.0 - 34.0 [facility] Erythrocyte mean corpuscular hemoglobin concentration [Mass/volume] by Automated count 32.0 g/dL 31.0 - 36.0 [facility] Erythrocyte distribution width [Ratio] by Automated count 13.9 % 11.5 - 14.8 [facility] Platelets [#/volume] in Blood by Automated count 224 10^3/uL 150 - 45 0 [facility] Platelet mean volume [Entitic volume] in Blood by Automated count 8.9 fL 7.4 - 10.4 [facility] Neutrophils/100 leukocytes in Blood by Automated count 72.7 % 37. 0 - 80.0 [facility] Lymphocytes/100 leukocytes in Blood by Manual count 15.4 % 25.0 - 40.0 L [facility] Monocytes/100 leukocytes in Blood by Automated count 9.1 % 3.0 - 8.0 H [facility] Eosinophils/100 leukocytes in Blood by Automated count 2.4 % 0.0 - 7.0 [facility] Basophils/100 leukocytes in Blood by Automated count 0.2 % 0.0 - 2.0 [facility] %IG 0.2 % 0.0 - 0.0 H [facility] %NRBC 0.0 % 0.0 - 0.0 [facility] al Neutrophils [#/volume] in Blood by Automated count 6.61 10^3/uL 2.00 - 6.90 [facility] Lymphocytes [#/volume] in Blood by Automated count 1.40 10^3/uL 0.60 - 3.40 [facility] Monocytes [#/volume] in Blood by Automated count 0.83 10^3/uL 0.00 - 0.90 [facility] Eosinophils [#/volume] in Blood by Automated count 0.22 10^3/uL 0.00 - 0.70 [facility] Basophils [#/volume] in Blood by Automated count 0.02 10^3/uL 0.00 - 0.20 [facility] #IG 0.02 10^3/uL 0.00 - 0.10 [facility] ospital #NRBC 0.00 10^3/uL 0.00 - 0.00 [facility] ospital MANUAL DIFF NOT INDICATED [facility] RBC MORPH NOT INDICATED [facility] spital ID Date Data Source [id number] 10/21/2019 03:35:00 PM EDT [facility] ([facility]) Name Value Range Interpretation Code Description Data Giovana rce(s) Supporting Document(s) Urinalysis Laboratory test result [facility] ([facility]) SOURCE: Clean Catch Source Laboratory test result [facility] ([facility]) SOURCE: Clean Catch Color Laboratory test result [facility] ([facility]) SOURCE: Clean Catch pH 5 5-9 [facility] ([facility]) SOURCE: Clean Catch Clarity Laboratory test result [facility] ([facility]) SOURCE: Clean Catch Spec [place] 1.010 1.001-1.030 [facility] ([facility]) SOURCE: Clean Catch Glucose Laboratory test result [facility] ([facility]) SOURCE: Clean Catch Bilirubin Laboratory test result [facility] ([facility]) SOURCE: Clean Catch Ketone Laboratory test result [facility] ([facility]) SOURCE: Clean Catch Protein Laboratory test result [facility] ([facility]) SOURCE: Clean Catch Blood 10 Abnormal (applies to non-numeric res ults) [facility] ([facility]) SOURCE: Clean Catch Nitrite Laboratory test result [facility] ([facility]) SOURCE: Clean Catch Urobilinogen Laboratory test result [facility] ([facility]) SOURCE: Clean Catch Leuk Est Laboratory test result [facility] ([facility]) SOURCE: Clean Catch RBC Laboratory test result [facility] ([facility]) SOURCE: Clean Catch Microscopic Laboratory test result [facility] ([facility]) SOURCE: Clean Catch Epithelial Laboratory test result [facility] ([facility]) SOURCE: Clean Catch ID Date Data Source [id number] 10/21/2019 04:12:00 PM EDT [facility] Name Value Range Interpretation Code Description Data Giovana rce(s) Supporting Document(s) URINALYSIS [facility] giovanna URINALYSIS SOURCE Clean Catch [facility] COLOR yellow NORMAL: Yellow [facility] CLARITY clear NORMAL: Clear [facility] Specific gravity of Urine by Test strip 1.010 1.001 - 1.030 [facility] pH 5 5 - 9 [facility] Glucose [Mass/volume] in Urine by Test strip NORM NORMAL: Negat rebekah [facility] Bilirubin.total [Presence] in Urine by Test strip NEG NORMAL: Negative [facility] Ketones [Presence] in Urine by Test strip NEG NORMAL: Negative [facility] Protein [Mass/volume] in Urine by Test strip NEG NORMAL: Negat rebekah [facility] Nitrite [Presence] in Urine by Test strip NEG NORMAL: Negative [facility] BLOOD 10 NORMAL: Negative A [facility] Leukocyte esterase [Presence] in Urine by Test strip NEG MILAGROS L: Negative [facility] Urobilinogen [Mass/volume] in Urine by Test strip NOR less vanessa n 1.0 mg/dL [facility] MICROSCOPIC See Below [facility] ital Erythrocytes [#/volume] in Urine by Test strip 0 - 1 NORMAL: NON E SEEN [facility] EPITHELIAL FEW NORMAL: NONE SEEN [facility] [facility] ID Date Data Source [id number] 09/14/2019 03:51:00 PM [facility] Patient Name: NICK TRUJILLO : 1990 Sex: M Pt Unit #: [id number] Location:[facility] Provider: Visit Date/Time: 09/14/19 Primary Insurance: [facility] Secondary Insurance: Self Pay Intake Vital Signs 09/14/19 15:51 Current Weight 386 lb 5 oz Weight Measurement Method Standing Scale BP 126/80 Blood Pressure Location Lt brachial Position Sitting Respiration 20 Pulse 115 H Pulse Source Pulse Oximeter Pulse Oximetry (%) 98 Intake Visit Reasons: Office visit Nurse Note: Pt has DSS paperwork to be made out on personal care. Pt fell last night hurting his (L)foot. needs xray. didnt sleep well last night due to the pain. Is patient in pain?: Yes (10-(L) foot) Allergies amoxicillin Allergy (Intermediate, Verified 04/12/19 10:03) rash phenytoin [From Dilantin] Allergy (Intermediate, Verified 04/12/19 10:03) HIVES codeine [Codeine] Allergy (Unknown, Verified 04/12/19 10:03) naproxen [Naproxen] Allergy (Unknown, Verified 04/12/19 10:03) Fall Risk Medications:: Analgesics, Sedatives and Psychotropics HIV Testing Offer - ages 13-64 HIV testing Offer: No PFSH Social History (Updated 09/14/19 @ 15:51 by Coby Andres) Does the Patient have a Healthcare Proxy: No Does Patient have a DNR?: No Does Patient have a Living Will?: No Hx Recent Travel (where): No HPI Additional HPI HPI Details: Fell and hurt left foot last night. Lost his balance and fell backwards over some boxes. No loss of consciousness. No head injury. Falls on a regular basis because he seems to lose his balance. Took a few Tylenol last night without relief. Has been trying to rest it. Has pain throughout foot and ankle. Using a walker today. Back pain is responding well to the Robaxin. Taking this four times per day. We discuss that this might be why he keeps falling. He has not yet been to PT. Has been waiting to hear on this. This may not be an ideal time to arrange this because he is moving to [facility] this month and it may be hard to keep appointments. Here with forms for DSS to get some home health services. He seems to identify the problem with his right foot as the main reason for this. He has been seeing a surgeon in [place] for this and they are apparently recommending surgery for this. He has no scheduled follow up for this. I am going to plan on a detailed face to face exam next visit to assess the need for this. Exam Const General: cooperative and healthy appearing Resp Effort Inspection: normal respiratory effort Auscultation: clear to auscultation bilaterally, no rales, no rhonchi and no wheezes Cardio Rate: regular rate Rhythm: regular rhythm Heart Sounds: S1 normal, S2 normal, no gallops, no murmurs and no rubs Musc Other: Left foot and ankle with diffuse moderate tenderness. 1+ edema. Decreased ROM due to pain. No laxity. No deformity. Psych Appearance: grossly normal Affect: normal affect Attitude: cooperative Assessment Plan Assessment Plan (1) Foot injury: Status: Acute Code(s): S99.929A - Unspecified injury of unspecified foot, initial encounter SNOMED Code(s): 286280542 Category: Medical Plan - Kota Anderson MD: Possibly soft tissue but worth doing an X ray to look at possible fractures. Continue conservative treatment. Encouraged him to consider taking Tylenol more often. (2) Low back pain at multiple sites: Status: Acute Code(s): M54.5 - Low back pain SNOMED Code(s): 644137377 Category: Medical Plan - Kota Anderson MD: I think the Robaxin, while helpful, might be some of the reason for his falls so I have encouraged him to use this as rarely as possible for his safety. I think a course of PT would be helpful but we are going to hold off until he has moved. Recheck one month, sooner as needed. Orders Other Orders: Orders: Xray Ankle Complete LT Today S99.912A Xray Foot complete Today S99.912A Electronically Signed By: <Electronically signed by Kota Anderson MD> Date/Time Signed: 09/14/19 1631 Name Value Range Interpretation Code Description Data Giovana rce(s) Supporting Document(s) ID Date Data Source [id number] 08/12/2019 02:08:00 PM [facility] Patient Name: NICK TRUJILLO : 1990 Sex: M Pt Unit #: [id number] Location:[facility] Provider: Visit Date/Time: 08/12/19 Primary Insurance: [facility] Secondary Insurance: Self Pay Intake Vital Signs 08/12/19 14:08 Current Height 5 ft 11 in Current Weight 389 lb Weight Measurement Method Standing Scale BMI 54.2 BP 128/72 Blood Pressure Location Rt radial Position Sitting Respiration 20 Pulse 93 Pulse Source Pulse Oximeter Pulse Oximetry (%) 98 Oxygen Delivery Method room air Intake Visit Reasons: Back pain follow-up Nurse Note: 28 year old male comes in for recheck on back pain. Patient is a patient of Dr. Simmons. Patient states pain is whole back not generalized, states medicine Dr. Anderson prescribed is working Pelletizer Operator Required: No Is patient in pain?: Yes (back) Pain scale (1-10): 7 Allergies amoxicillin Allergy (Intermediate, Verified 04/12/19 10:03) rash phenytoin [From Dilantin] Allergy (Intermediate, Verified 04/12/19 10:03) HIVES codeine [Codeine] Allergy (Unknown, Verified 04/12/19 10:03) naproxen [Naproxen] Allergy (Unknown, Verified 04/12/19 10:03) Fall Risk History of falls: No Ambulatory Aid:: None Gait/Transferring:: Normal HIV Testing Offer - ages 13-64 Requirement for HIV testing offer been met?: Patient reports past refusal [facility] Medical History Acne (Chronic) Acne vulgaris (Acute 10/19/14) Allergic rhinitis Anxiety (Chronic) Asthma (Chronic) Benign essential hypertension with target blood pressure below 140/90 (Acute 10/19/14) Cognitive developmental delay (Acute 10/16/15) Depression (Chronic) Developmental delay (Chronic) Fracture of left shoulder GERD (gastroesophageal reflux disease) Headache Hx of renal calculi Hypertension (Chronic) Hypertriglyceridemia IBS (irritable bowel syndrome) (Chronic) Illiterate (Acute 03/25/16) Intrinsic asthma, unspecified (Acute 10/19/14) Irritable colon Migraine (Resolved) Obesity, morbid, BMI 50 or higher (Acute 10/16/15) Peripheral polyneuropathy (Acute 05/15/17) Pseudoseizures (Acute) Seizure (Chronic) Sleep apnea (Chronic) Testicular problem Unsteady gait (Acute 03/01/16) Vision deficit Surgical History Acquired stenosis of urethral meatus (Resolved) Appendectomy Cholecystectomy History of - surgery History of colonoscopy Status post tonsillectomy Social History Does the Patient have a Healthcare Proxy: No Does Patient have a DNR?: No Does Patient have a Living Will?: No Hx Recent Travel (where): No HPI Additional HPI HPI Details: Pt comes in today with documents needing to be filled out .He states that methocarbimol is the only med that helps with his low back.He c/o mid to low back bilateral pain. He does have 1 refill left on his meds. Back pain follow-up * Associated symptoms: Reports myalgias Review of Systems Const All systems reviewed are unremarkable except as noted in HPI and below Reports system reviewed and no additional complaints, except as documented Eyes Reports system reviewed and no additional complaints, except as documented ENT Reports system reviewed and no additional complaints, except as documented Card Reports system reviewed and no additional complaints, except as documented Resp Reports system reviewed and no additional complaints, except as documented GI Reports system reviewed and no additional complaints, except as documented Reports system reviewed and no additional complaints, except as documented Musc Reports back pain (mid to low back pain bilaterally noted. ) and Reports myalgias Neuro Reports system reviewed and no additional complaints, except as documented Psych Reports sys tem reviewed and no additional complaints, except as documented Exam Const General: cooperative and disheveled Nutritional Appearance: obese (grossly ) Orientation: alert, awake and oriented x3 HENMT Head: normal to inspection Ears: hearing grossly normal bilaterally General nose exam: external nose normal Face and sinus: normal facial exam Mouth: oral mucosae normal Eyes General: dysmorphic (grossly obese) Visual Arteaga: normal visual arteaga by confrontation Alignment and Position: alignment normal Periorbital: periorbital findings normal Eyelids: eyelids normal Conjunctivae: conjunctivae normal Pupils: PERRL Neck Neck: normal visual inspection Thyroid: thyroid normal Chest Chest: normal inspection of the chest Resp Effort Inspection: normal respiratory effort Auscultation: clear to auscultation bilaterally Cardio Jugular venous pressure: no JVD Palpation: normal PMI Rate: regular rate GI Inspection: Yes normal to inspection Palpation: soft Auscultation: n ormal bowel sounds Musc Cervical Spine: normal cervical lordosis Thoracic/Lumbar Spine: thoracic and lumbar spine normal to inspection Pelvis: no pain with anterior-posterior compression Neuro General: alert, awake and oriented x3 Cranial Nerves: CN's II-XII intact bilaterally Speech: speech normal Extrem General: dysmorphic Psych Appearance: disheveled Mental Status: mental status grossly normal Speech and Movement: speech and movement normal Affect: normal affect Assessment Plan Assessment Plan (1) Back pain: Code(s): M54.9 - Dorsalgia, unspecified (2) Obesity due to excess calories with serious comorbidity: Status: Acute Comment: Pt has a large number of documents needing to be filled out by physician of record.Lindsey.I do not know this patient medically at all.Pt does have a refill on his methcarbamol rx. Pt to make an appointment with Dr Anderson Code(s): E66.09 - Other obesity due to excess calories SNOMED Code(s): 653421729 Category: Medical Electronically Signed By: <Electronically signed by Lance Arenas DO> Date/Time Signed: 08/12/19 1432 Name Value Range Interpretation Code Description Data Giovana rce(s) Supporting Document(s) ID Date Data Source [id number] 06/16/2019 05:31:50 PM [facility] Name Value Range Interpretation Code Description Data Giovana rce(s) Supporting Document(s) Progress Note [facility] [id number]/[id number]aGLvAtBXiaWTKx lbm [file] vp cardiovascular/GZ1PSzdvDjNR+oGQ3S6ixSq3INGI4RS7X212mnqwmk1FiYdEPybtb2ivNfj/4sovaob2hdP57WlvW SE2SpILHLSGpaggkhpTiTqwQ7UXPSKJaWZXOomINZA [file] [id number]+[id number] ID Date Data Source [id number] 06/16/2019 03:57:22 PM [facility] CT LOWER EXTREMITY WITHOUT CONTRAST 7370 0FINAL RESULTInterpreted by:Miladis Jimenez, MDCT LOWER EXTREMITY WITHOUT CONTRAST.HISTORY: Evaluate tibiotalar and subtalar TECHNIQUE: Axial images were obtained through the left ankle without intravenous contrast. Coronal and sagittal reformats are provided.One or more of the following dose reduction techniques were utilized in effectively lowering the patient's radiation dose for this examination: Automated Exposure Control, Adjustment of the mA and/or kV according to patient size, or Iterative Reconstruction. COMPARISON: Foot and ankle x-rays dated .FINDINGS:Bones: As seen on prior radiograph there is a severe osteoarthritis of the subtalar joint most pronounced medially with kcrp-pd-swlc articulation, marginal spurring, and extensive subchondral cyst formation both within the talus and calcaneus. There are subchondral cystic changes at the anterior and posterior aspects the joint. There is a large os trigonum which appears fragmented that in total measures up to 3.8 cm transverse. There are small foci of mineralization at the inferior aspect of the lateral malleolus along the expected course anterior talofibular ligament most compatible with remote tear. No substantial joint effusion.No substantial degenerative changes are present in the tibiotalar joint remains. The talar dome is smooth.Soft tissues: There is at least mild fatty infiltration of the visualized distal calf musculature. There is moderate fatty infiltration of the adductor digit minimi as well as the interosseous musculature. The Achilles tendon is intact.IMPRESSION:1. Advanced tibiotalar osteoarthritis most pronounced medially. Large fragmented appearing os trigonum.2. No substantial osteoarthritis of the tibiotalar joint.This document has been electronically sig lola by Miladis Jimenez MD on 06/16/2019 3:55 PM Name Value Range Interpretation Code Description Data Giovana rce(s) Supporting Document(s) Procedure Social History Code Duration Value Status Description Data Source(s ) Alcohol intake 06/28/2020 12:00:00 AM EST Current non-d roscoe of alcohol (finding) completed Current non-drinker of alcohol (finding) [facility] Tobacco use and exposure 06/28/2020 12:00:00 AM EST Never used co mpleted Never used [facility] Smoking 06/28/2020 12:00:00 AM EST Never smoker completed Never s [facility] Alcohol intake 06/06/2020 12:00:00 AM EST Current non-d roscoe of alcohol (finding) completed Current non-drinker of alcohol (finding) [facility] Alcohol intake 05/09/2020 12:00:00 AM EDT Current non-d roscoe of alcohol (finding) completed Current non-drinker of alcohol (finding) [facility] Alcohol intake 04/26/2020 12:00:00 AM EDT Current non-d roscoe of alcohol (finding) completed Current non-drinker of alcohol (finding) [facility] Alcohol intake 02/09/2020 12:00:00 AM EDT No completed [facility] Smoking 02/09/2020 12:00:00 AM EDT Never smoker completed Never s [facility] Alcohol intake 02/04/2020 12:00:00 AM EDT No completed [facility] Smoking 02/04/2020 12:00:00 AM EDT Never smoker completed Never s [facility] Caffeine Use Details 10/06/2019 12:00:00 AM EDT completed [facility] ([facility]) 10/06/2019 12:00:00 AM EDT Never smoked tobacco comple sheri Never smoked tobacco [facility] ([facility]) Smoking 10/06/2019 12:00:00 AM EDT Never smoker completed Never s moker [facility] ([facility]) 09/14/2019 03:51:40 PM EST Never smoker completed Never s [facility] Smoking 09/14/2019 03:51:00 PM EST Never smoker completed Never s [facility] 08/12/2019 02:22:00 PM EST Never smoker completed Never s [facility] 08/12/2019 02:22:00 PM EST No completed No [facility] 08/12/2019 02:22:00 PM EST No completed No [facility] Alcohol intake 06/16/2019 12:00:00 AM EST Current non-d roscoe of alcohol (finding) completed Current non-drinker of alcohol (finding) [facility] Smoking 06/16/2019 12:00:00 AM EST Never smoker completed Never s [facility] Vital Signs ID Date Data Source UNK Name Value Range Interpretation Code Description Data Source(s) Diastolic blood pressure 82 mm[Hg] 82 mm[Hg] eCW1 ([facility]) Systolic blood pressure 136 mm[Hg] 136 mm[Hg] e CW1 ([facility]) Body mass index (BMI) [Ratio] 59.41 kg/m2 59.41 kg/m2 W1 ([facility]) Body height 71 [in_i] 71 [in_i] eCW1 ([facility]) Body weight 426 [lb_av] 426 [lb_av] eCW1 ([facility]) Diastolic blood pressure 92 mm[Hg] 92 mm[Hg] eCW1 ([facility]) Systolic blood pressure 138 mm[Hg] 138 mm[Hg] e CW1 ([facility]) Body mass index (BMI) [Ratio] 57.46 kg/m2 57.46 kg/m2 W1 ([facility]) Body height 71 [in_i] 71 [in_i] eCW1 ([facility]) Body weight 412 [lb_av] 412 [lb_av] eCW1 ([facility]) Body weight 180.986 kg 180.986 kg MEDENT ([facility]) Body weight 399.00 [lb_av] 399.00 [lb_av] MEDEN T ([facility]) Oxygen saturation in Arterial blood by Pulse oximetry 98 % 98 % [facility] ([facility]) Respiratory rate 18 /min 18 /min [facility] ( [facility]) Body temperature 97.6 [degF] 97.6 [degF] [facility] ([facility]) Heart rate 96 /min 96 /min [facility] ([facility]) Diastolic blood pressure 78 mm[Hg] 78 mm[Hg] [facility] ([facility]) Systolic blood pressure 132 mm[Hg] 132 mm[Hg] M EDENT ([facility]) Diastolic blood pressure 61 mm[Hg] 61 mm[Hg] [facility] Systolic blood pressure 120 mm[Hg] 120 mm[Hg] [facility] Oxygen saturation in Arterial blood by Pulse oximetry 93 % 93 % [facility] Body temperature 36.5 Opal 36.5 Opal [facility] Respiratory rate 16 /min 16 /min [facility] Heart rate 88 /min 88 /min [facility] Body mass index (BMI) [Ratio] 55.37 kg/m2 55.37 kg/m2 [facility] Body weight 180.078 kg 180.078 kg [facility] Body height 180.3 cm 180.3 cm [facility] Oxygen saturation in Arterial blood by Pulse oximetry 95 % 95 % [facility] Body mass index (BMI) [Ratio] 55.50 kg/m2 55.50 kg/m2 [facility] Body weight 180.486 kg 180.486 kg [facility] Body height 180.3 cm 180.3 cm [facility] Heart rate 96 /min 96 /min [facility] Diastolic blood pressure 61 mm[Hg] 61 mm[Hg] [facility] Systolic blood pressure 112 mm[Hg] 112 mm[Hg] [facility] Body weight 180.533 kg 180.533 kg [facility]ENT [facility] Body mass index (BMI) [Ratio] 55.5 kg/m2 55.5 k g/m2 MEDENT ([facility]) Heart rate 96 /min 96 /min [facility] ([facility]) Diastolic blood pressure 79 mm[Hg] 79 mm[Hg] [facility] ([facility]) Systolic blood pressure 143 mm[Hg] 143 mm[Hg] M EDENT ([facility]) Body weight 398.00 [lb_av] 398.00 [lb_av] MEDEN T ([facility]) Temp 97.7 Body height 71 [in_i] 71 [in_i] MEDENT ([facility] tive [facility]) 5'11" Body weight 180.533 kg 180.533 kg MEDENT ([facility]) Body weight 398.00 [lb_av] 398.00 [lb_av] MEDEN T ([facility]) Oxygen saturation in Arterial blood by Pulse oximetry 97 % 97 % [facility] ([facility]) Respiratory rate 22 /min 22 /min [facility] ( [facility]) Body temperature 97.6 [degF] 97.6 [degF] [facility] ([facility]) Heart rate 86 /min 86 /min [facility] ([facility]) Diastolic blood pressure 72 mm[Hg] 72 mm[Hg] [facility] ([facility]) Systolic blood pressure 130 mm[Hg] 130 mm[Hg] [facility] ([facility]) Body surface area 2.79 m2 2.79 m2 [facility] ([facility]) Body mass index (BMI) [Ratio] 54.1 kg/m2 54.1 k g/m2 [facility] ([facility]) Body height 71 [in_i] 71 [in_i] [facility] ([facility]) 5'11" Body weight 175.997 kg 175.997 kg [facility] ([facility]) per chart Body weight 388.00 [lb_av] 388.00 [lb_av] MEDEN T ([facility]) Body surface area 2.79 m2 2.79 m2 [facility] ([facility]) Body mass index (BMI) [Ratio] 54.1 kg/m2 54.1 k g/m2 [facility] ([facility]) Body height 71 [in_i] 71 [in_i] [facility] ([facility]) 5'11" Body weight 175.997 kg 175.997 kg [facility] ([facility]) Body weight 388.00 [lb_av] 388.00 [lb_av] MEDEN T ([facility]) Oxygen saturation in Arterial blood by Pulse oximetry 96 % 96 % [facility] ([facility]) Respiratory rate 24 /min 24 /min [facility] ( [facility]) wearing mask Body temperature 97.8 [degF] 97.8 [degF] [facility] ([facility]) Heart rate 76 /min 76 /min [facility] ([facility]) Diastolic blood pressure 58 mm[Hg] 58 mm[Hg] [facility] ([facility]) Systolic blood pressure 126 mm[Hg] 126 mm[Hg] [facility] ([facility]) Body surface area 2.78 m2 2.78 m2 [facility] ([facility]) Body mass index (BMI) [Ratio] 53.6 kg/m2 53.6 k g/m2 [facility] ([facility]) Body height 71 [in_i] 71 [in_i] [facility] ([facility]) 5'11" Body weight 174.296 kg 174.296 kg [facility] ([facility]) Body weight 384.25 [lb_av] 384.25 [lb_av] MEDEN T ([facility]) Oxygen saturation in Arterial blood by Pulse oximetry 98 % 98 % [facility] ([facility]) Respiratory rate 18 /min 18 /min [facility] ( [facility]) Body temperature 98.0 [degF] 98.0 [degF] [facility] ([facility]) Heart rate 94 /min 94 /min [facility] ([facility]) Diastolic blood pressure 64 mm[Hg] 64 mm[Hg] [facility] ([facility]) Systolic blood pressure 118 mm[Hg] 118 mm[Hg] M EDENT ([facility]) Heart rate 92 /min 92 /min [facility] ([facility]) Diastolic blood pressure 88 mm[Hg] 88 mm[Hg] [facility] ([facility]) Systolic blood pressure 140 mm[Hg] 140 mm[Hg] N [facility] ([facility]) ID Date Data Source [id number] 06/09/2020 09:34:40 AM EST [facility] Name Value Range Interpretation Code Description Data Source(s) WEIGHT RECORDED 417.6 lb 417.6 lb [facility] Body height Measured 70.98 in 70.98 in [facility] ID Date Data Source [id number] 05/09/2020 02:17:55 PM T [facility] Name Value Range Interpretation Code Description Data Source(s) WEIGHT RECORDED 407 lb 407 lb [facility] Body height Measured 70.98 in 70.98 in [facility] ID Date Data Source [id number] 01/14/2020 09:34:45 AM [facility] Name Value Range Interpretation Code Description Data Source(s) WEIGHT RECORDED 384.00 pounds 384.00 pounds [facility] Height 71 Inches 071 Inches [facility] Patient Treatment Plan of Care Planned Activity Planned Date Details Description Data Source (s) Misc. Devices (DURABLE MEDICAL EQUIPMENT SEE SIG) XX M ISC 06/28/2020 12:00:00 AM [facility] ospital Clindamycin 0.01 MG/MG Topical Gel 06/12/2020 12:00:00 AM EST eCW1 ([facility]) Cephalexin 500 MG Oral Capsule 06/06/2020 01:30:00 PM [facility] lidocaine (XYLOCAINE) 2 % urojet 20 mL 06/06/2020 01:30:00 PM [facility] Doxycycline Monohydrate 50 MG Oral Capsule 05/15/2020 12:00:00 AM E DT eCW1 ([facility]) ciclopirox 10 MG/ML Medicated Shampoo 05/15/2020 12:00:00 AM EDT eCW1 ([facility]) alclometasone dipropionate 0.5 MG/ML Topical Cream 05/15/2020 12 :00:00 AM EDT eCW1 ([facility]) Doxycycline Monohydrate 50 MG Oral Capsule 05/15/2020 12:00:00 AM E DT eCW1 ([facility]) ciclopirox 10 MG/ML Medicated Shampoo 05/15/2020 12:00:00 AM EDT eCW1 ([facility]) alclometasone dipropionate 0.5 MG/ML Topical Cream 05/15/2020 12 :00:00 AM EDT eCW1 ([facility]) Doxycycline Monohydrate 50 MG Oral Capsule 05/15/2020 12:00:00 AM E DT eCW1 ([facility]) ciclopirox 10 MG/ML Medicated Shampoo 05/15/2020 12:00:00 AM EDT eCW1 ([facility]) alclometasone dipropionate 0.5 MG/ML Topical Cream 05/15/2020 12 :00:00 AM EDT eCW1 ([facility]) alclometasone dipropionate 0.5 MG/ML Topical Cream 05/15/2020 12 :00:00 AM EDT eCW1 ([facility]) Doxycycline Monohydrate 50 MG Oral Capsule 05/15/2020 12:00:00 AM E DT eCW1 ([facility]) ciclopirox 10 MG/ML Medicated Shampoo 05/15/2020 12:00:00 AM EDT eCW1 ([facility]) Docusate Sodium 100 MG Oral Capsule [DOK] 04/07/2020 12:00:00 AM ED T [facility] Desvenlafaxine Succinate ER 100 MG Oral Tablet Extended Release 24 Hour (PRISTIQ) 04/07/2020 12:00:00 AM EDT [facility] Nystatin 100 UNT/MG Topical Powder 03/27/2020 12:00:00 AM EDT [facility] Oxycodone Hydrochloride 5 MG Oral Tablet 02/09/2020 12:00:00 AM EDT [facility] methylPREDNISolone acetate (DEPO-MEDROL) injection 40 mg 06/16/2019 03:45:00 PM [facility] Misc. Devices (DURABLE MEDICAL EQUIPMENT SEE SIG) MISC 10/09/2018 12:00:00 AM [facility] ospital gabapentin 100 MG Oral Capsule 03/03/2018 12:00:00 AM [facility] maalox/lidocaine/diphenhydrAMINE (RADIATION MIXTURE) 1 :1:1 oral suspension 05/29/2017 12:00:00 AM EDT [facility] Melatonin 3 MG Oral Tablet [facility] doxycycline hyclate 50 MG Oral Capsule [facility] PARoxetine (PAXIL) 30 MG tablet [facility] desvenlafaxine (PRISTIQ) 50 MG 24 hr tablet [facility]
[2020-08-09] MEDS ORDERED: NS 1,000 ML IV ONE (16:30)
[2020-08-09 17:04] LABS: BASO % 0.2 % (0.0-1.0); EOS # 0.3 10^3/uL (0.0-0.5); EOS % 2.6 % (0.0-3.0); HEMOGLOBIN 16.9 g/dl (13.5-17.5); LYMPH # 2.2 10^3/uL (1.5-5.0); LYMPH % 21.9 % (24.0-44.0); MEAN CORPUSCULAR HEMOGLOBIN 29.6 pg (27.0-33.0); MEAN CORPUSCULAR HGB CONC 31.9 g/dl (32.0-36.5); MEAN CORPUSCULAR VOLUME 92.8 fl (80.0-96.0); MONO # 0.7 10^3/uL (0.0-0.8); MONO % 7.1 % (0.0-5.0); NEUTROPHILS # 6.7 10^3/uL (1.5-8.5); NEUTROPHILS % 67.9 % (36.0-66.0); PLATELET COUNT, AUTOMATED 220 10^3/uL (150-450); RED BLOOD COUNT 5.71 10^6/uL (4.30-6.10); WHITE BLOOD COUNT 9.9 10^3/uL (4.0-10.0)
[2020-08-09 17:22] LABS: INR 1.02; PARTIAL THROMBOPLASTIN TIME 27.4 SECONDS (24.2-38.5); PROTHROMBIN TIME 13.6 SECONDS (12.5-14.3)
[2020-08-09 17:25] LABS: D-DIMER QUANT 752.52 ng/ml (<500)
[2020-08-09 17:35] LABS: ALBUMIN 4.1 GM/DL (3.2-5.2); ALT/SGPT 72 U/L (12-78); BILIRUBIN,DIRECT < 0.1 MG/DL (0.0-0.2); BILIRUBIN,TOTAL 0.6 MG/DL (0.2-1.0); BLOOD UREA NITROGEN 17 MG/DL (7-18); CALCIUM LEVEL 9.2 MG/DL (8.5-10.1); CARBON DIOXIDE LEVEL 26 MEQ/L (21-32); CHLORIDE LEVEL 110 MEQ/L (98-107); CREATININE FOR GFR 1.02 MG/DL (0.70-1.30); GLOMERULAR FILTRATION RATE > 60.0 (>60); GLUCOSE, FASTING 101 MG/DL (70-100); LIPASE 112 U/L (73-393); POTASSIUM SERUM 4.2 MEQ/L (3.5-5.1); SODIUM LEVEL 142 MEQ/L (136-145); TOTAL PROTEIN 8.1 GM/DL (6.4-8.2)
--- NOTE | 2020-08-09 17:36 | REP ---
INDICATION: cough hemoptysis COMPARISON: 07/31/2020. TECHNIQUE: PA/Lateral FINDINGS: Lungs: Clear, no infiltrate. Heart: Normal in size. Mediastinum: Mediastinal silhouette unremarkable. Pleural angles: Unremarkable.. Bones and soft tissues: Unremarkable. IMPRESSION: No acute pulmonary disease. <Electronically signed by Matti Sullivan > 08/09/20 [id number]
[2020-08-09] MEDS ORDERED: ISOVUE-370 76% 100ML VIAL As Ordered ONE (17:53)
--- NOTE | 2020-08-09 19:32 | REPVR ---
PROCEDURE INFORMATION: Exam: CT Angiography Chest With Contrast Exam date and time: 08/09/2020 6:08 PM Age: 29 years old Clinical indication: Shortness of breath; Additional info: Hemoptysis, SOB TECHNIQUE: Imaging protocol: Computed tomographic angiography of the chest with intravenous contrast. 3D rendering (Not supervised by radiologist): MIP and/or 3D reconstructed images were created by the technologist. Radiation optimization: All CT scans at this facility use at least one of these dose optimization techniques: automated exposure control; mA and/or kV adjustment per patient size (includes targeted exams where dose is matched to clinical indication); or iterative reconstruction. Contrast material: ISOVUE 370; Contrast volume: 100 ml; Contrast route: INTRAVENOUS (IV); COMPARISON: DE Chest, 2 view PA, Lat 08/09/2020 4:33 PM FINDINGS: Pulmonary arteries: No central pulmonary arterial filling defects identified. Respiratory motion artifacts do limit evaluation. Aorta: Unremarkable. No aortic aneurysm. No aortic dissection. Lungs: Unremarkable. No consolidation. No masses. Pleural space: Unremarkable. No pneumothorax. No pleural effusion. Heart: Unremarkable. No cardiomegaly. No pericardial effusion. Lymph nodes: Unremarkable. No enlarged lymph nodes. Bones/joints: No acute fracture. Pbea-xu-icyzoezq thoracic degenerative disc disease, prominent for age. Bilateral cervical ribs are noted. Soft tissues: Unremarkable. IMPRESSION: No acute findings. No evidence of central pulmonary emboli. Electronically signed by: Taisha Walker On 08/09/2020 19:31:57 PM
--- NOTE | 2020-08-09 19:40 | REPVR ---
PROCEDURE INFORMATION: Exam: CT Abdomen And Pelvis With Contrast Exam date and time: 08/09/2020 6:08 PM Age: 29 years old Clinical indication: Nausea and vomiting; Additional info: Diffuse abd pain, nv, hematemesis TECHNIQUE: Imaging protocol: Computed tomography of the abdomen and pelvis with intravenous contrast. Radiation optimization: All CT scans at this facility use at least one of these dose optimization techniques: automated exposure control; mA and/or kV adjustment per patient size (includes targeted exams where dose is matched to clinical indication); or iterative reconstruction. Contrast material: ISOVUE 370; Contrast volume: 100 ml; Contrast route: INTRAVENOUS (IV); COMPARISON: CT ABD PELVIS W/O FOL BY WIT 11/07/2014 3:53 PM FINDINGS: Liver: Normal. No mass. Gallbladder and bile ducts: Normal. No calcified stones. No ductal dilation. Pancreas: Normal. No ductal dilation. Spleen: Normal. No splenomegaly. Adrenal glands: Normal. No mass. Kidneys and ureters: There is a 1.9 cm left kidney simple cyst. No specific follow-up is indicated. No hydronephrosis. Stomach and bowel: There is colonic diverticulosis without evidence of diverticulitis. No evidence of obstruction. No discrete bowel wall mucosal thickening seen. Appendix: The appendix is not discretely visualized. No evidence of appendicitis. Intraperitoneal space: Surgical clips again demonstrated the right abdomen. No free fluid or free air. Vasculature: Unremarkable. No abdominal aortic aneurysm. Lymph nodes: No pathologically enlarged lymph nodes. Urinary bladder: Unremarkable as visualized. Reproductive: Unremarkable as visualized. Bones/joints: No acute fracture seen. Focal, sclerotic lesion in L5 may represent a bone island. Hztq-hz-nxsoqfnt lumbar degenerative disc disease at L1-L2. Soft tissues: Small bilateral fat containing inguinal hernias. Small fat and vessel containing ventral wall hernias are demonstrated. One of these is unchanged. The 2nd, smaller more inferiorly located hernia is new. No signs of inflammation. IMPRESSION: 1. Images are mildly motion degraded. 2. No acute findings identified. COMMENTS: Consistent with the [employer]'s Incidental Findings Committee white paper (J Am Homer Radiol 2018): Any incidental renal lesion less than 1 cm or classified as too small to characterize, or any incidental cystic renal lesion characterized as simple-appearing, is likely benign. No follow-up imaging is recommended for these lesions per consensus recommendations based on imaging criteria. Electronically signed by: Taisha Walker On 08/09/2020 19:40:25 PM
[2020-08-09 20:05] VITALS: BP 137/69
== END 2020-08-09 20:23 | disposition home or self-care (01) ==
LOC: M ED 14:16
DX: R11.2 Nausea with vomiting, unspecified (principal); R05 Cough; K40.90 Unilateral inguinal hernia, without obstruction or gangrene, not specified as recurrent; M51.36 Other intervertebral disc degeneration, lumbar region; N28.1 Cyst of kidney, acquired; Z88.6 Allergy status to analgesic agent; Z88.8 Allergy status to other drugs, medicaments and biological substances; Z79.899 Other long term (current) drug therapy

== ENCOUNTER 2020-08-17 19:46 | Emergency (ER) | payer OTHER ==
[~2020-08-17] VITALS: Ht 180.3 cm; Wt 185.0 kg
--- OUTSIDE RECORDS SUMMARY | 2020-08-17 19:51 | CCD ---
Author Author [facility] Organization [facility] Address Unknown Phone Unavailable Care Team Providers Care Exhibit Artist Name Role Phone Nick De Unavailable PROBLEMS Type Condition ICD9-CM Code QCE33-IP Code Onset Dates Condition S tatus SNOMED Code Notes Problem Learning disability 315.2 Active 146550304 Problem Stricture, ureter 593.3 Active 32732894 Problem Hypertension 401.9 Active 66870572 Problem Obesity 278.00 Active 043034295 Problem Candidal intertrigo 112.3 Active 175780543 Problem Acute renal failure 584.9 Active 842486161630 108 Problem Ivy rash of groin 112.89 Active 65917672 Problem Abscess of groin, right 682.2 Active 19456998 0 Problem Migraines 346.90 Active 90361063 Problem Depression 311 Active 086181765 Problem Asthma 493.90 Active 268640715 Problem Seizure disorder G40.909 Active 897012841 Problem Hematuria 599.70 Active 43367248 Problem Obstructive sleep apnea G47.33 Active 77145072 Problem Seizure disorder 345.90 Active 227721490 Problem BMI 50.0-59.9, adult V85.43 Active 040711230 Problem Gastritis 535.50 Active 4503421 Problem BMI 50.0-59.9, adult Z68.43 Active 777953829 Problem Mild intermittent asthma without complication J45. 20 Active 051061269 ALLERGIES Allergen (clinical drug ingredient) Drug/Non Drug Allergy do cumented on EMR Reaction Allergy Type Onset Date Status naproxen Naprosyn(NDC Code:[address]-61) Nausea/Vomiting Drug Ben rgy Active phenytoin Dilantin Rash Drug Allergy Active amoxicillin Amoxicillin(NDC Code:[address]-27) RASH Drug Aller gy Active codeine Codeine Sulfate([facility] Code:[address]-33) Nausea/Vomiting Dr lovett Allergy Active ENCOUNTERS from 1988 to 2020-08-10 Encounter Location Date Provider Diagnosis [facility] [place] [address] Jul, Nick Kenisha IMMUNIZATIONS Vaccine Route Administration Date Status Influenza (6mo & up) Fluzone IM Intramuscular May 25, 2013 Ad ministered SOCIAL HISTORY Sex Assigned At : Social History Observation Description Sex Assigned At Unknown REASON FOR REFERRAL No Information VITAL SIGNS No information MEDICATIONS Medication SIG (Take, Route, Frequency, Duration) Notes Start Da te End Date Status Heating Pad 1 as directed ICD: 724.8 daily Feb, Not-Taking Zofran 4 MG 1 tablet Orally Once a day for 30 day(s) Active Alclometasone Dipropionate 0.05 % 1 application [employer] ally Twice a day for TEN DAYS ONLY to dry skin rash on face for 10 days Active Ventolin HFA 108 (90 Base) MCG/ACT 2 puffs as needed I nhalation every 4 hrs for 1 month Not-Taking Ketoconazole 2 % one application Externally to face and s calp daily for 14 days May, Not-Taking Nystatin 798095 UNIT/GM apply Externally groin Twice a day for 1 month Dec, Active Pyridium 100 mg 1 tablet after meals Orally Three times a day, for two days Not-Taking Debrox 6.5 % apply to right ear Otic twice daily as needed fo r 1 month Dec, Not-Taking Incruse Ellipta 62.5 MCG/INH 1 puff Inhalation Once a day Active Ciclopirox 1 % 1 application Externally Thr ee times a Week to scalp and sow area for 30 days Active Theophylline 400 MG 1 tab(s) Orally twice a day Not-Taking Trazodone 50 50mg 1 tab(s) orally at bedtime for 30 day(s) Not-Taking Albuterol Sulfate (2.5 MG/3ML) 0.083% 3 ml Inhalation Three times a day as needed for 1 month Active Bacitracin 500 UNIT/GM 1 application to affected area Externally Once a day May, Not-Taking MiraLax - 1 packet mixed with 8 ounces of fluid Or ally Once a day for 30 day(s) Active Clindamycin Phosphate 1 % 1 application Externally Twice a day for 30 days Active Vitamin B12 100 MCG as directed Orally Active Benzoyl Peroxide 5 % 1 application to affected area Externally Once a day Not-Taking Dulera 200-5 MCG/ACT 2 puffs Inhalation twice a day/ Not-Taking Keppra 500 MG 1 tablet Orally every 12 hrs Active Bacitracin 500 UNIT/GM 1 application to affected ar ea Externally Once a day for 10 day(s) May, Not-Taking Melatonin 3 MG 1 tablet at bedtime as neede d with food Orally Once a day for 30 day(s) Active Ultram Ultram 1 tab(s) Orally twice daily as needed MDD:2 for 1 month Apr, Not-Taking Fluconazole 150 MG 1 tablet Orally Once a day for 1 Dec Not-Taking Advair Diskus 500-50 MCG/DOSE 1 puff Inhalation Twice a day for Fri Not-Taking Topamax 200 MG 1 tablet Orally BID A ctive Amlodipine 10 mg 1 tablet orally daily for 30 day(s) Not-Taking Vitamin D (Ergocalciferol) 34904 UNIT 1 capsule Orally weekly Aug, Active Tylenol Extra Strength 500 mg 1 tab(s) Orally daily as needed fo r 30 day(s) Jul, Not-Taking Montelukast Sodium 10 mg 1 tablet Orally at bedtime for 30 day(s) Active Carafate 1 GM 1 tablet on an empty stomach Orally twice a day as needed for 30 day(s) November, Active Zofran 4 mg 1 tablet Orally every 8 hours as needed for 30 day(s) Not-Taking Flovent Diskus 250 MCG/BLIST 1 puff Inhalation Twice a day for 1 month Aug, Not-Taking Cetirizine HCl 10 mg 1 tablet as needed Orally Once a day for 30 day( s) Active Doxycycline Monohydrate 100 MG 1 capsule Orally Twice a day for 30 da y(s) Active Pristiq 50 mg 1 tablet Orally Once a day for 30 day(s) Active Venlafaxine HCl 50 mg 1 tablet with food Orally Twice a day for 30 day(s) Sep, Not-Taking Prilosec 20 mg 1 capsule Orally twice daily for 30 day(s) Jan, Active Biotin 1000 MCG 1 tablet Orally Once a day for 30 day(s) Active Breo Ellipta 100-25 MCG/INH 1 puff Inhalation Once a day Not-Taking Vitamin D-3 5000 UNIT 2 TABS Orally QWEEK Active Imitrex 100 MG 1 tablet as needed Orally Twice a day Active Gabapentin 100 MG as directed Orally Active Ibuprofen 600 MG 1 tablet with food or milk as needed Ora lly Three times a day Active PROCEDURES No Information RESULTS No Results REASON FOR VISIT ED visit 08-09-20 MEDICAL (GENERAL) HISTORY Type Description Date Medical History Migraines Medical History Asthma Medical History Seizures Medical History Depression Medical History Anxiety Medical History Sleep apnea Medical History Arthritis Medical History COPD Medical History HX HEMATURIA Medical History PHERIPHERAL NEUROPATHY Medical History ACNE Medical History ALLERGIC RHINITIS Medical History DEVELOPMENTAL DLAY Medical History HX FX LEFT SHOULDER Medical History GERD Medical History HX KIDNEY STONES Medical History HTN Medical History HYPERTRIGLYCERIDEMIA Medical History IBS Medical History HX URINARY RETENTION Medical History URETHRAL STRICTURE = MANY SX INLUDING BU CCAL MUCOSA Medical History UMBILICAL HERNIA Surgical History T&A Surgical History Hypospadius repair Surgical History cholecystectomy Surgical History appendectomy Surgical History cystoscopy 02/01/2014 Surgical History COLONOSCOPY Surgical History URETHRAL STRICTURE REPAIR WITH BUCCAL MU COSA Surgical History HERNIA REPAIRS 2018 & 2019 Hospitalization History esophagitis 05/14/2013 Goals Section No Information Health Concerns No Information MEDICAL EQUIPMENT No Information MENTAL STATUS No Information FUNCTIONAL STATUS No Information ASSESSMENTS No Information PLAN OF TREATMENT Next Appt Details Provider Name:Nicola Christiano, 2020-08-11 1 0:00:00 AM, [address] [place] [address], [address], Provider Name:Ryan Dixon, 1 10:00:00 AM, [address] [place] [address], [address], Insurance Providers Payer Name Payer Address Payer Phone Insured Name Patient Relati onship to Insured Coverage Start Date Coverage End Date [facility] [address] [facility] [phone] NICK MEEK
--- OUTSIDE RECORDS SUMMARY | 2020-08-17 19:51 | CCD ---
Author Author [facility] Organization [facility] Address Unknown Phone Unavailable Care Team Providers Care Medical Psychotherapist Name Role Phone Nick De Unavailable PROBLEMS Type Condition ICD9-CM Code [id number] Code Onset Dates Condition S tatus SNOMED Code Notes Problem Learning disability 315.2 Active 881180175 Problem Stricture, ureter 593.3 Active 74084070 Problem Hypertension 401.9 Active 40155611 Problem Obesity 278.00 Active 972694246 Problem Candidal intertrigo 112.3 Active 226031389 Problem Acute renal failure 584.9 Active 811591793739 108 Problem Ivy rash of groin 112.89 Active 49070091 Problem Abscess of groin, right 682.2 Active 36300285 0 Problem Migraines 346.90 Active 33416067 Problem Depression 311 Active 047872664 Problem Asthma 493.90 Active 953118951 Problem Seizure disorder G40.909 Active 055602510 Problem Hematuria 599.70 Active 63352301 Problem Obstructive sleep apnea G47.33 Active 83126395 Problem Seizure disorder 345.90 Active 039472691 Problem BMI 50.0-59.9, adult V85.43 Active 397548598 Problem Gastritis 535.50 Active 8753507 Problem BMI 50.0-59.9, adult Z68.43 Active 025079903 Problem Mild intermittent asthma without complication J45. 20 Active 123449372 ALLERGIES Allergen (clinical drug ingredient) Drug/Non Drug Allergy do cumented on EMR Reaction Allergy Type Onset Date Status naproxen Naprosyn(NDC Code:[address]-98) Nausea/Vomiting Drug Ben rgy Active phenytoin Dilantin Rash Drug Allergy Active amoxicillin Amoxicillin([facility]C Code:[address]-61) RASH Drug Aller gy Active codeine Codeine Sulfate([facility] Code:[address]-64) Nausea/Vomiting Dr lovett Allergy Active ENCOUNTERS from 1988 to 2020-08-15 Encounter Location Date Provider Diagnosis [facility] [place] [address] Jul, Nick Kenisha IMMUNIZATIONS Vaccine Route Administration Date Status Influenza (6mo & up) Fluzone IM Intramuscular May 25, 2013 Ad ministered SOCIAL HISTORY Sex Assigned At : Social History Observation Description Sex Assigned At Unknown REASON FOR REFERRAL No Information VITAL SIGNS No information MEDICATIONS Medication SIG (Take, Route, Frequency, Duration) Notes Start Da te End Date Status Nystatin 468904 UNIT/GM apply Externally groin Twice a day for 1 month Dec, Active Breo Ellipta 100-25 MCG/INH 1 puff Inhalation Once a day Not-Taking Cetirizine HCl 10 mg 1 tablet as needed Orally Once a day for 30 day( s) Active Zofran 4 MG 1 tablet Orally Once a day for 30 day(s) Active Carafate 1 GM 1 tablet on an empty stomach Orally twice a day as needed for 30 day(s) November, Active Biotin 1000 MCG 1 tablet Orally Once a day for 30 day(s) Active Clindamycin Phosphate 1 % 1 application Externally Twice a day for 30 days Active Vitamin D (Ergocalciferol) 88864 UNIT 1 capsule Orally weekly Aug, Active MiraLax - 1 packet mixed with 8 ounces of fluid Or ally Once a day for 30 day(s) Active Ibuprofen 600 MG 1 tablet with food or milk as needed Ora lly Three times a day Active Imitrex 100 MG 1 tablet as needed Orally Twice a day Active Prilosec 20 mg 1 capsule Orally twice daily for 30 day(s) Jan, Active Keppra 500 MG 1 tablet Orally every 12 hrs Active Doxycycline Monohydrate 100 MG 1 capsule Orally Twice a day for 30 da y(s) Active Montelukast Sodium 10 mg 1 tablet Orally at bedtime for 30 day(s) Active Albuterol Sulfate (2.5 MG/3ML) 0.083% 3 ml Inhalation Three times a day as needed for 1 month Active Ciclopirox 1 % 1 application Externally Thr ee times a Week to scalp and sow area for 30 days Active Topamax 200 MG 1 tablet Orally BID A ctive Incruse Ellipta 62.5 MCG/INH 1 puff Inhalation Once a day Active Pristiq 50 mg 1 tablet Orally Once a day for 30 day(s) Active Vitamin B12 100 MCG as directed Orally Active Alclometasone Dipropionate 0.05 % 1 application Inside [employer] Executive ally Twice a day for TEN DAYS ONLY to dry skin rash on face for 10 days Active Vitamin D-3 5000 UNIT 2 TABS Orally QWEEK Active PROCEDURES No Information RESULTS No Results REASON FOR VISIT records request MEDICAL (GENERAL) HISTORY Type Description Date Medical [...] PLAN OF TREATMENT Next Appt Details Provider Name:Ryan Dixon, 2020-02-0 1 10:00:00 AM, [address] [place] [address], [place], [address], Insurance Providers Payer Name Payer Address Payer Phone Insured Name Patient Relati onship to Insured Coverage Start Date Coverage End Date [facility] [address] [facility] [phone] NICK MEEK self
--- OUTSIDE RECORDS SUMMARY | 2020-08-17 19:53 | CCD ---
Author Author [facility] Organization [facility] Address Unknown Phone Unavailable Care Team Providers Care Visual Designer Name Role Phone Arnaldo De La Rosa MD Unavailable Unavailable Arnaldo De La Rosa MD Unavailable Unavailable Arnaldo De La Rosa MD Unavailable Unavailable Arnaldo De La Rosa MD Unavailable Unavailable Arnaldo De La Rosa MD Unavailable Unavailable Arnaldo De La Rosa MD Unavailable Unavailable Arnaldo De La Rosa MD Unavailable Unavailable Arnaldo De La Rosa MD Unavailable Unavailable Arnaldo De La Rosa MD Unavailable Unavailable Arnaldo De La Rosa MD Unavailable Unavailable Arnaldo De La Rosa MD Unavailable Unavailable Arnaldo De La Rosa MD Unavailable Unavailable Arnadlo De La Rosa MD Unavailable Unavailable EstrellaArnaldo ponce MD Unavailable Unavailable EstrellaArnaldo ponce MD Unavailable Unavailable EstrellaArnaldo ponce MD Unavailable Unavailable EstrellaArnaldo ponce MD Unavailable Unavailable EstrellaArnaldo ponce MD Unavailable Unavailable EstrellaArnaldo ponce MD Unavailable Unavailable EstrellaArnaldo MD Unavailable Unavailable EstrellaArnaldo MD Unavailable Unavailable EstrellaArnaldo ponce MD Unavailable Unavailable EstrellaArnaldo MD Unavailable Unavailable EstrellaArnaldo MD Unavailable Unavailable EstrellaArnaldo MD Unavailable Unavailable EstrellaArnaldo MD Unavailable Unavailable EstrellaArnaldo MD Unavailable Unavailable EstrellaArnaldo MD Unavailable Unavailable EstrellaArnaldo ponce MD Unavailable Unavailable EstrellaArnaldo MD Unavailable Unavailable EstrellaArnaldo ponce MD Unavailable Unavailable EstrellaArnaldo ponce MD Unavailable Unavailable Arnaldo De La Rosa MD Unavailable Unavailable Arnaldo De La Rosa MD Unavailable Unavailable Arnaldo De La Rosa MD Unavailable Unavailable Arnaldo De La Rosa MD Unavailable Unavailable Arnaldo De La Rosa MD Unavailable Unavailable Arnaldo De La Rosa MD Unavailable Unavailable Arnaldo De La Rosa MD Unavailable Unavailable Arnaldo De La Rosa MD Unavailable Unavailable Arnaldo De La Rosa MD Unavailable Unavailable Arnaldo De La Rosa MD Unavailable Unavailable Arnaldo De La Rosa MD Unavailable Unavailable Arnaldo De La Rosa MD Unavailable Unavailable Arnaldo De La Rosa MD Unavailable Unavailable Arnaldo De La Rosa MD Unavailable Unavailable Arnaldo De La Rosa MD Unavailable Unavailable Arnaldo De La Rosa MD Unavailable Unavailable Stephen GEORGES MD Unavailable Unavailable Setphen GEORGES MD Unavailable Unavailable Stephen GEORGES MD [...] VANVALKENBURG, Miroslava ESCUDERO MD Unavailable Unavailable VANVALKENBURG, Mrioslava ESCUDERO MD Unavailable Unavailable VANVALKENBURG, Miroslava ESCUDERO [...] Unavailable Unavailable VANVALMiroslava DONALDSON MD Unavailable Unavailable KRISTINAVALMiroslava DONALDOSN MD Unavailable Unavailable VANVALKENMiroslava DOTSON MD Unavailable Unavailable VANVALKENMiroslava DOTSON MD Unavailable Unavailable VANVALKENMiroslava DOTSON MD Unavailable Unavailable VANVALKENMiroslava DOTSON MD Unavailable Unavailable VANVALKENMiroslava DOTSON MD Unavailable Unavailable VANVALKENMiroslava DOTSON MD Unavailable Unavailable VANVALKENMiroslava DOTSON MD Unavailable Unavailable VANVALKENMiroslava DOTSON MD Unavailable Unavailable VANVALKENMiroslava DOTSON MD Unavailable Unavailable VANVALKENMiroslava DOTSON MD Unavailable Unavailable VANVALKENMiroslava DOTSON MD Unavailable [...] Unavailable DEMARTINI, M ADITYA PA Unavailable Unavailable DEMAKASHINI, Miroslava BURGESS PA Unavailable Unavailable DEMAKASHINI, Miroslava BURGESS PA Unavailable Unavailable DEMAKASHINI, Miroslava BURGESS PA Unavailable Unavailable DEMARTINI, Miroslava BURGESS PA Unavailable Unavailable DEMAKASHINI, Miroslava BURGESS PA Unavailable Unavailable DEMAKASHINIMiroslava PA Unavailable Unavailable DEMARTINI, Miroslava BURGESS PA Unavailable Unavailable OBEN, T SALVADOR MD [...] OBEN, T SALVADOR MD Unavailable Unavailable Lionel KAMARA MD Unavailable Unavailable Lionel KAMARA MD Unavailable Unavailable Lionel KAMARA MD Unavailable Unavailable Lionel KAMARA MD Unavailable Unavailable Lionel KAMARA MD Unavailable Unavailable HITESH MELGAR MD Unavailable Unavailable HITESH MELGAR MD Unavailable Unavailable HITESH MELGAR MD Unavailable Unavailable HITESH MELGAR MD Unavailable Unavailable HITESH MELGAR MD Unavailable Unavailable AMHITESH ARAUJO MD Unavailable Unavailable HITESH MELGAR MD Unavailable Unavailable HITESH MELGAR MD Unavailable Unavailable AMHITESH ARAUJO MD Unavailable Unavailable HITESH MELGAR MD Unavailable Unavailable HITESH MELGAR MD Unavailable Unavailable HITESH MELGAR MD Unavailable Unavailable Angelica Anderson MD Unavailable Unavailable Angelica Anderson MD Unavailable Unavailable Angelica Anderson MD Unavailable Unavailable Angelica Anderson MD Unavailable Unavailable Angleica Anderson MD Unavailable Unavailable Angelica Anderson MD [...] Unavailable Unavailable Jonathon SHOOK MD Unavailable Unavailable Jontahon SHOOK MD Unavailable Unavailable Jonathon SHOOK MD [...] A SANTOS MD Unavailable Unavailable BOONE, Jonathon GRAHAM MD Unavailable Unavailable BOONE, Jonathon GRAHAM MD Unavailable Unavailable BOONE, Jonathon GRAHAM MD Unavailable Unavailable BOONE, Jonathon HELTONSANTOS Unavailable Unavailable BOONE, Jonathon GRAHAM MD Unavailable Unavailable BOONE, A SANTOS MD Unavailable Unavailable BOOEN, Jonathon GRAHAM MD Unavailable Unavailable BOONE, Jonathon GRAHAM MD Unavailable Unavailable BOONE, Jonathon GRAHAM MD Unavailable Unavailable BOONE, Jonathon GRAHAM MD Unavailable Unavailable BOONE, Jonathon GRAHAM MD Unavailable Unavailable BOONE, A SANTOS WAGNER Unavailable Unavailable BOONE, Jonathon GRAHAM MD Unavailable Unavailable BOONE, Jonathon GRAHAM MD Unavailable Unavailable BOONE, Jonathon GRAHAM MD Unavailable Unavailable BOONE, Jonathon GRAHAM MD Unavailable Unavailable BOONE, Jonathon GRAHAM MD Unavailable Unavailable BOONE, Jonathon GRAHAM MD Unavailable Unavailable Kunnumpurath, F Shannan MD [...] Unavailable IDA, A KELLEN DPM Unavailable Unavailable Arnaldo DAVIS [id number] Unavailable Unavailable OBEN, T SALVADOR MD Unavailable [...] Unavailable HESTER, LETITIA MD Unavailable Unavailable HESTER, LEITTIA MD Unavailable Unavailable HESTER, LETITIA MD Unavailable [...] MD Unavailable Unavailable MADISON PEPE Unavailable Unavailable Los MORSE MD Unavailable Unavailable Los MORSE MD Unavailable Unavailable Los MORSE MD Unavailable Unavailable Los MORSE MD Unavailable Unavailable MINILos MAYES MD Unavailable Unavailable Los MORSE MD Unavailable Unavailable Los MORSE MD Unavailable Unavailable Los MORSE MD Unavailable Unavailable Los MORSE MD Unavailable Unavailable Los MORSE MD Unavailable Unavailable Los MORSE MD Unavailable Unavailable Los MORSE MD Unavailable Unavailable Los MORSE MD Unavailable Unavailable Los MORSE MD Unavailable Unavailable Los MORSE MD Unavailable Unavailable Los MORSE MD Unavailable Unavailable Los MORSE MD Unavailable Unavailable Los MORSE MD Unavailable Unavailable Los MORSE MD Unavailable Unavailable Los MORSE MD Unavailable Unavailable Los MORSE MD Unavailable Unavailable Los MORSE MD Unavailable Unavailable Los MORSE MD Unavailable [...] Unavailable Unavailable Nieves TAMAYO MD Unavailable Unavailable EBLKIS, Nieves JONES MD Unavailable Unavailable Nieves TAMAYO MD Unavailable [...] Unavailable Unavailable Nieves TAMAYO MD Unavailable Unavailable VENENievse GARCIA MD Unavailable Unavailable VENENieves GARCIA MD Unavailable Unavailable Nieves CASSIDY MD Unavailable Unavailable VENENieves GARCIA MD Unavailable Unavailable VENENieves GARCIA MD Unavailable Unavailable Nieves CASSIDY MD Unavailable Unavailable Nieves CASSIDY MD Unavailable Unavailable VENENieves GARCIA MD Unavailable Unavailable VENENieves GARCIA MD Unavailable Unavailable NO, PCP Unavailable Unavailable [...] is protected by Article 27-F of the [facility] Public Health law. If you continue you may have access to information: Regarding HIV / AIDS; Provided by facilities licensed or operated by the [facility] Office of Mental Health; or Provided by the [facility] Office for People With Developmental Disabilities. If such information is present, then the following [facility] mandated warning applies: This information has been [...] law may result in a fine or snf sentence or both. A general authorization for the release of medical or other information is NOT sufficient authorization for further disc losure. Allergies and Adverse Reactions Type Description Substance Reaction Status Data Source(s ) No Known Food Allergies No Known Food Allergies [facility] allergy CODEINE CODEINE [facility] Drug allergy NAPROXEN NAPROXEN [facility] Family History Family Member Name Family Member Gender Family Member Status Date o f Status Description Data Source(s) Unknown Condition [facility] Unknown Condition [facility] Unknown Condition [facility] Unknown Condition [facility] Unknown Condition [facility] Unknown Condition [facility] Unknown Condition [facility] Unknown Condition [facility] Unknown Condition [facility] Encounters Encounter Providers Location Date Indications Data Source(s ) Outpatient Attender: SANTOS SHOOK MD 11/28/2020 12:00:0 0 AM [facility] Unknown [address] [facility] [place] [address] 08/15/2020 12:00:00 AM EST eCW1 (Critical access hospital) Unknown [address] [facility] [address] 08/10/2020 12:00:00 AM EST eCW1 (Critical access hospital) Outpatient Attender: MADISON PEPE 07/17/2020 12:00:[address] [facility] Outpatient Attender: KOTA SIERRA MD [id number] 06/28/2020 12:00:00 AM EST Primary osteoarthritis, right ankle and foot [facility] Primary osteoarthritis, right ankle and foot Outpatient Attender: MADISON PEPE 06/26/2020 12:00:[address] [facility] [place] [address] [facility] [facility] [address] 06/12/2020 12:00:00 AM EST eCW1 ([facility]) Outpatient Attender: SANTOS SHOOK MD [id number] 04/2020 12:00:00 AM EST - 06/06/2020 02:43:30 PM EST Post-traumatic bulbous urethral stricture [facility] Post-traumatic bulbous urethral strictur e Outpatient Attender: MADISON PEPE 06/05/2020 12:00:[address] [facility] Outpatient Attender: Shannan Negrete MDConsultant: LETITIA HESTER MD 06/01/2020 01:00:00 PM [facility] - 06/01/2020 01:00:00 PM [facility] Outpatient Attender: MADISON PEPE 05/24/2020 12:00:00 A M [facility] [place] [address] [address] 05/22/2020 12:00:00 AM EDT eCW1 ([facility]) [place] [address] [address] 05/22/2020 12:00:00 AM EDT eCW1 ([facility]) [place] [address] [address] 05/18/2020 12:00:00 AM EDT eCW1 ([facility]) [place] [address] [address] 05/15/2020 12:00:00 AM EDT eCW1 ([facility]) Outpatient Attender: SANTOS SHOOK MD [id number] 12:00:00 AM EDT - 05/09/2020 02:16:06 PM [facility] Outpatient Referrer: ADITYA TANG 04/26/2020 12:00:00 AM EDT Primary osteoarthritis, right ankle and foot [facility] Primary osteoarthritis, right ankle and foot Outpatient Referrer: ADITYA TANG 04/26/2020 12:00:00 AM EDT Primary osteoarthritis, right ankle and foot [facility] Primary osteoarthritis, right ankle and foot Outpatient Attender: ADITYA TANG [id number] 04/26/2020 12:00:00 AM EDT Primary osteoarthritis, right ankle and foot [facility] Primary osteoarthritis, right ankle and foot Outpatient Attender: Shannan Negrete MDConsultant: LETITIA HESTER MD 04/20/2020 02:36:00 PM EDT - 04/20/2020 02:36:00 PM EDT [facility] Outpatient Attender: LETITIA HESTER MDConsultant: LETITIA Madison MD 04/05/2020 10:11:00 AM EDT - 04/05/2020 10:11:00 AM T [facility] Outpatient Attender: ALESHIA GEORGES MDConsultant: LETITIA Madison MD 03/29/2020 01:51:00 PM EDT - 03/29[facility] LETITIA HESTER MDConsultant: LETITIA Madison MD 03/27/2020 12:49:00 PM EDT - 03/27/2020 12:49:00 PM [facility] Outpatient Attender: KOTA SIERRA MD 03/24/2020 12: 00:00 AM [facility] Emergency Attender: CLEO GRUBERConsultant: LETITIA Madison MD 03/22/2020 03:26:00 PM EDT - 03/22/2020 05:25:00 PM [facility] Patient discharged. Outpatient Attender: ALTAGRACIA DAVIS [id number]: LETITIA HANSEN MD 03/20/2020 12:00:00 AM [facility] Outpatient Attender: KOTA SIERRA MD 03/15/2020 12: 00:00 AM [facility] Emergency Attender: HITESH MELGAR MDConsultant: LETITIA HESTER MD 03/09/2020 05:46:00 PM EDT - 03/10/2020 12:45:00 AM [facility] Patient discharged. Outpatient Attender: LETITIA HESTER MD Family Practice 02/23/2020 1 1:00:00 AM EDT [facility] ([facility]) Outpatient Attender: LETITIA HESTER MDConsultant: LETITIA Madison MD 02/23/2020 10:36:00 AM EDT - 02/23/2020 10:36:00 AM EDT [facility] Outpatient Attender: ROBERT TAMAYO MDReferrer: ROBERT TAMAYO MD MOB-MOB.PAT 02/04/2020 10:47:57 AM EDT - 02/04/2020 11:35:59 AM EDT [facility] Outpatient Attender: ROBERT TAMAYO MDReferrer: ROBERT TAMAYO MD MOB-MOB.PAT 02/04/2020 10:12:45 AM EDT - 02/04/2020 10:12:49 AM EDT [facility] SDC Attender: ROBERT TAMAYO MDAdmitter: ROBERT TAMAYO MD ES1-OR 02/02/2020 10:39:51 AM EDT - 02/09/2020 05:00:00 PM EDT [facility] Patient discharged. Outpatient Referrer: ROBERT TAMAYO MD 01/31/2020 01:06:48 P M EDT [facility] Emergency Attender: MILAGROS MORSE MDConsultant: LETITIA Madison MD 01/27/2020 11:08:00 AM EDT - 01/27/2020 01:46:00 PM EDT [facility] Patient discharged. Outpatient Attender: Lance De La Rosa MD Main Office 01/18/2020 02:15:00 PM EDT [facility] ([facility]) Outpatient Attender: LETITIA HESTER MDConsultant: LETITIA Madison MD 01/17/2020 09:33:00 AM EDT - 01/17/2020 10:33:00 AM EDT [facility] Emergency Attender: MILAGROS MORSE MDConsultant: LETITIA Madison MD 01/13/2020 01:42:00 PM EDT - 01/13/2020 05:54:00 PM EDT [facility] Patient discharged. Outpatient Attender: LETITIA HESTER MD Family Practice 01/12/2020 0 1:20:00 PM EDT [facility] ([facility]) Outpatient Attender: LETITIA HESTER MDConsultant: LETITIA Madison MD 01/12/2020 12:32:00 PM EDT - 01/12/2020 12:32:00 PM EDT [facility] Outpatient Attender: SALVADOR KAMARA MDConsultant: LETITIA HESTER MD 12/31/2019 08:45:00 AM EDT - 12/31/2019 11:35:00 AM EDT [facility] Patient discharged. Outpatient Attender: Carmen Biswas MS, RPA-CConsultan t: LETITIA HESTER MD 12/28/2019 09:05:00 AM EDT - 12/28/2019 09:15:00 AM EDT [facility] Patient discharged. Outpatient Attender: SALVADOR KAMARA MDConsultant: LETITIA HESTER MD 12/15/2019 11:32:18 AM EDT [facility] Outpatient Attender: ALESSIO SOTELO CDN, RDConsultant: LETITIA HESTER MD 12/14/2019 12:59:00 PM EDT - 12/14/2019 12:59:00 PM EDT [facility] Outpatient Attender: SALVADOR KAMARA MDConsultant: LETITIA HESTER MD 12/13/2019 02:57:37 PM EDT - 12/14/2019 12:20:00 PM EDT [facility] Patient discharged. Outpatient Attender: LETITIA HESTER MDConsultant: LETITIA Madison MD 11/29/2019 10:16:00 AM EDT - 12/16/2019 08:54:00 AM EDT [facility] Patient discharged. Outpatient Attender: LETITIA HESTER MDConsultant: LETITIA Madison MD 11/25/2019 12:56:00 PM EDT - 11/25/2019 12:56:00 PM EDT [facility] Outpatient Attender: SALVADOR KAMARA MDConsultant: LETITIA HESTER MD 11/23/2019 11:13:00 AM EDT - 11/23/2019 11:13:00 AM EDT [facility] Outpatient Attender: SALVADOR KAMARA MD Family Practice 11/23/2019 08:15:0 0 AM EDT [facility] ([facility]) Outpatient Attender: LETITIA HESTER MDConsultant: LETITIA Madison MD 11/19/2019 10:35:00 AM EDT - 11/19/2019 11:36:00 AM EDT [facility] Outpatient Attender: LETITIA HESTER MD Family Practice 11/18/2019 0 3:00:00 PM EDT [facility] ([facility]) Outpatient Attender: LETITIA HESTER MDConsultant: PCP NO 11/18/2019 02:08:00 PM EDT - 11/18/2019 02:08:00 PM EDT [facility] Emergency Attender: YI CASSIDY MDConsultant: PCP NO 10/21/2019 03:31:00 PM EDT - 10/21/2019 05:41:00 PM EDT [facility] Patient discharged. Outpatient Attender: KOTA SIERRA MD 10/15/2019 12: 00:00 AM [facility] OutpatientEST-LEVEL 4 Attender: KELLEN PRIETO [facility] Podiatr y 10/06/2019 02:30:00 PM EDT - 10/06/2019 02:30:00 PM EDT Nail dystrophyUnspecified osteoarthritis, unspecified site [facility] ([facility]) Nail dystrophy Unspecified osteoarthritis, unspecified site Outpatient Attender: Kota Cristina: Kota Anderson MD 09/14/2019 03:48:00 PM EST - 09/14/2019 04:28:00 PM EST [facility] Outpatient Attender: Lance Boo: Kota collins MD 08/12/2019 01:49:00 PM [facility] Immunizations Vaccine Date Status Description Data Source(s) This CVX code allows reporting of a vacc ination when formulation is unknown (for example, when recording a Influenza vaccination when noted on a vaccination card) 07/19/2019 12:00:00 AM EST completed influenza, injectable , [facility] This CVX code allows reporting of a vacc ination when formulation is unknown (for example, when recording a Influenza vaccination when noted on a vaccination card) 07/19/2019 12:00:00 AM EST [facility] influenza, [facility] , [facility] Medications Medication Brand Name Start Date Product Form Dose Route Admi nistrative Instructions Pharmacy Instructions Status Indications Reaction Description Data Source(s) [facility] [place] [place]DURABLE MEDICAL EQUIPMENT SEE SIG) [place] [facility] [place] [id number] 06/28/2020 12:00:00 AM EST active Use as directed. Roll A Bout Knee Scooter Dx: [facility] Clindamycin 0.01 MG/MG Topical Gel Clindamycin Phospha te 1 % Clindamycin Phosphate 1 % 06/12/2020 12:00:00 AM EST 1.0 {application} active Clindamycin Phosphate 1 % eCW1 ([facility]) lidocaine (XYLOCAINE) 2 % urojet 20 mL [id number] 0 01:30:00 PM EST 20 mL Urethral completed 20 mL, Urethr al, Once, 06/06/20 at 1330, For 1 dose [facility] Medication administered onsite Cephalexin 500 MG Oral Capsule cephALEXin (KEFLEX) cap gt 500 mg cephALEXin (KEFLEX) capsule 500 mg 06/06/2020 01:30:00 PM EST 500 mg Oral completed 500 mg, Oral, Once, 06/06/20 at 1330 , For 1 dose [facility] Medication administered onsite alclometasone dipropionate 0.5 MG/ML Top ical Cream Alclometasone Dipropionate 0.05 % Alclometasone Dipropionate 0.05 % 05/15/2020 12:00:00 AM EDT 1.0 {application} active Alclometasone Dipr opionate 0.05 % eCW1 ([facility]) ciclopirox 10 MG/ML Medicated Shampoo Ciclopirox 1 % Ciclopi oneil 1 % 05/15/2020 12:00:00 AM EDT 1.0 {application} active Ciclopirox 1 % eCW1 ([facility]) ciclopirox 10 MG/ML Medicated Shampoo Ciclopirox 1 % Ciclopi oneil 1 % 05/15/2020 12:00:00 AM EDT 1.0 {application} active Ciclopirox 1 % eCW1 ([facility]) Doxycycline Monohydrate 50 MG Oral Capsule Doxycycline Monoh ydrate 50 MG 05/15/2020 12:00:00 AM EDT 1.0 {capsule} active Doxycycline Monohydrate 50 MG eCW1 ([facility]) alclometasone dipropionate 0.5 MG/ML Top ical Cream Alclometasone Dipropionate 0.05 % Alclometasone Dipropionate 0.05 % 05/15/2020 12:00:00 AM EDT 1.0 {application} active Alclometasone Dipr opionate 0.05 % eCW1 ([facility]) Doxycycline Monohydrate 50 MG Oral Capsule Doxycycline Monoh ydrate 50 MG 05/15/2020 12:00:00 AM EDT 1.0 {capsule} active Doxycycline Monohydrate 50 MG eCW1 ([facility]) alclometasone dipropionate 0.5 MG/ML Top ical Cream Alclometasone Dipropionate 0.05 % Alclometasone Dipropionate 0.05 % 05/15/2020 12:00:00 AM EDT 1.0 {application} active Alclometasone Dipr opionate 0.05 % eCW1 ([facility]) ciclopirox 10 MG/ML Medicated Shampoo Ciclopirox 1 % Ciclopi oneil 1 % 05/15/2020 12:00:00 AM EDT 1.0 {application} active Ciclopirox 1 % eCW1 ([facility]) alclometasone dipropionate 0.5 MG/ML Top ical Cream Alclometasone Dipropionate 0.05 % Alclometasone Dipropionate 0.05 % 05/15/2020 12:00:00 AM EDT 1.0 {application} active Alclometasone Dipr opionate 0.05 % eCW1 ([facility]) ciclopirox 10 MG/ML Medicated Shampoo Ciclopirox 1 % Ciclopi oneil 1 % 05/15/2020 12:00:00 AM EDT 1.0 {application} active Ciclopirox 1 % eCW1 ([facility]) Doxycycline Monohydrate 50 MG Oral Capsule Doxycycline Monoh ydrate 50 MG 05/15/2020 12:00:00 AM EDT 1.0 {capsule} active Doxycycline Monohydrate 50 MG eCW1 ([facility]) Doxycycline Monohydrate 50 MG Oral Capsule Doxycycline Monoh ydrate 50 MG 05/15/2020 12:00:00 AM EDT 1.0 {capsule} active Doxycycline Monohydrate 50 MG eCW1 ([facility]) Docusate Sodium 100 MG Oral Capsule [DOK] DOK 100 MG O ral Capsule DOK 100 MG Oral Capsule 04/07/2020 12:00:00 AM EDT 100 mg Oral activ e Take 100 mg by mouth daily [facility] Desvenlafaxine Succinate ER 100 MG Oral Tablet Extended Release 24 Hour (PRISTIQ) 0562-1533-82 04/07/2020 12:00:00 AM EDT Oral active Take by mouth daily [facility] Nystatin 100 UNT/MG Topical Powder Nysta tin [id number] UNIT/GM External Powder (MYCOSTATIN) Nystatin [id number] UNIT/GM External Powder (MYCOSTATIN) 0 03/27/2020 12:00:00 AM EDT active APPLY TO AFFECTED AREA S TWO TIMES A DAY ABDOMINAL FOLDS [facility] heparin (porcine) injection 5,000 Units [id number] 02/09/20 05:00:00 PM EDT 5000 U Subcutaneous active 5,000 Units , Subcutaneous, Every 8 hours (scheduled), First dose on Fri02/09/20 at 1700, Post-op
If platelet count is less than 100,000 or hematocrit is less than 25, or if there is a 5 point decrea se in hematocrit, do not give the dose and call physician/designee.
[facility] Medication administered onsite dextrose 5 % and sodium chloride 0.9 % infusion [id number] 02/09/2020 05:00:00 PM EDT Intravenous active at 1 00 mL/hr, Intravenous, Continuous, Starting Fri02/09/20 at 1700, Post-op
Hep lock with good PO
[facility] Medication administered onsite Oxycodone Hydrochloride 5 MG Oral Tablet oxyCODONE (ROXICODONE) immediate release tablet 5 mg oxyCODONE (ROXICODONE) immediate release tablet 5 mg 02/09/2020 04:27:42 PM EDT 5 mg Oral active 5 mg, Oral, Every 4 hours PRN, moderate pain (4-6), Starting Fri02/09/20 at 1627, For 7 days, Post-op [facility] Medication administered onsite ondansetron (ZOFRAN) injection 4 mg [id number] 02/09/2020 04:27:4 2 PM EDT 4 mg Intravenous active 4 mg, In travenous, Every 6 hours PRN, nausea, vomiting, Starting Fri02/09/20 at 1627, Post-op [facility] Medication administered onsite Magnesium Chloride 0.70012 MEQ/ML / Pota ssium Chloride 0.0497 MEQ/ML / Sodium Acetate 0.0163 MEQ/ML / Sodium Chloride 0.0899 MEQ/ML / Sodium gluconate 5.02 MG/ML Injectable Solution [Normosol-R] electrolyte-R (NORMOSOL-R/PLASMALYTE-R) solution electrolyte-R (NORMOSOL-R/PLASMALYTE-R) solution 02/08 04:00:00 PM EDT Intravenous active at 1 00 mL/hr, Intravenous, Continuous, Starting Fri02/09/20 at 1600, PACU & Post-op [facility] Medication administered onsite normal saline flush 0.9 % injection 3 mL [id number] 02/09/2020 04:00:00 PM EDT 3 mL Intravenous active 3 mL , Intravenous, Every 8 hours (scheduled), First dose on Fri02/09/20 at 1600, PACU (only)
flush per protocol, D/C Main IV fluid if appropriate
[facility] Medication administered onsite 10 ML Atropine Sulfate [...] or 0.04 mg/kg. Max of 6 doses
[facility] Medication administered onsite fentaNYL Citrate (PF) (SUBLIMAZE) injection 25 mcg [id number] 02/09/2020 02:45:03 PM EDT 25 ug Intravenous completed 25 mcg, Intravenous, Every 5 min PRN, moderate pain (4-6), Starting Fri02/09/20 at 1445, For 4 doses, PACU (only) [facility] Medication administered onsite normal saline flush 0.9 % injection 3 mL [id number] 02/09/2020 02:00:00 PM EDT 3 mL Intravenous active 3 mL , Intravenous, Every 8 hours (scheduled), First dose on Fri02/09/20 at 1400, Pre-op
Rapid push positive pressure flushing shall be performed with a 10 cc normal saline syringe to check the PATENCY of a PIV site prior to any infusion therapy initiation unless resistance is met.
[facility] Medication administered onsite Oxycodone Hydrochloride 5 MG Oral Tablet oxyCODONE (ROXICODONE) 5 MG immediate release tablet oxyCODONE (ROXICODONE) 5 MG immediate release tablet 0 02/09/2020 12:00:00 AM EDT 5 mg Oral active Take 1 tablet (5 mg total) by mouth every 6 (six) hours as needed for pain Max Daily Amount: 20 mg [facility] Levetiracetam 500 MG Oral Tablet [Keppra] Keppra 01/20/2020 12:00 :00 AM EDT ORAL active [facility] ([facility]) montelukast 10 MG Oral Tablet Montelukast Sodium 11/22/2019 12:00:00 AM EDT ORAL active [facility] ([facility]) Docusate Sodium 100 MG Oral Capsule [Colace] Colace 12:00:00 AM EDT ORAL active [facility] ( [facility]) 750 mg 09/14/2019 12:00:00 AM EST tablet [...] 08/30/2019 09:14:43 AM EST 15 MG active [facility] Methocarbamol 750 MG Oral Tablet Methocarbamol 08/30/2019 09:12:29 AM EST 750 MG active [facility] 750 mg 08/30/2019 12:00:00 AM EST tablet 60 TAKE ONE TABLET BY MOUTH FOUR TIMES A DAY TAKE ONE TABLET BY MOUTH FOUR TIMES A DAY SOLD: 08/30/2019 [facility] 15 mg 08/30/2019 12:00:00 AM EST tablet 30 TAKE ONE TABLET BY MOUTH EVERY DAY TAKE ONE TABLET BY MOUTH EVERY DAY SOLD: 08/30/2019 [facility] Doxycycline Monohydrate 50 MG Oral Capsule Doxycycline Monoh ydrate 08/19/2019 09:11:55 AM EST 50 MG active [facility] cetirizine hydrochloride 10 MG Oral Capsule Cetirizine Cetir izine 08/19/2019 09:11:50 AM EST 10 MG active [facility] 10 mg 08/19/2019 12:00:00 AM EST [...] Topiramate 020 02:39:04 PM EST 200 MG [facility] 750 mg 07/18/2019 12:00:00 AM [...] 07/13/2019 03:23:25 PM EST 750 MG completed [facility] 750 mg 07/06/2019 12:00:00 AM EST tablet 60 TAKE ONE TABLET BY MOUTH FOUR TIMES A DAY TAKE ONE TABLET BY MOUTH FOUR TIMES A DAY SOLD: 07/06/2019 [facility] Methocarbamol 750 MG Oral Tablet Methocarbamol 07/05/2019 04:44:44 PM EST 750 MG completed [facility] 100 mg 06/04/2019 12:00:00 AM EST tablet [...] Methocarbamol 06/03/2019 08:54:31 AM EST 750 MG [facility] Mirtazapine 15 MG Oral Tablet Mirtazapine 06/01/2019 02:30:05 PM EST 15 MG completed [facility] 15 mg 06/01/2019 12:00:00 AM EST tablet 30 TAKE ONE TABLET BY MOUTH EVERY DAY TAKE ONE TABLET BY MOUTH EVERY DAY SOLD: 07/26/2019 [facility] 15 mg 06/01/2019 12:00:00 AM EST tablet 30 TAKE ONE TABLET BY MOUTH EVERY DAY TAKE ONE TABLET BY MOUTH EVERY DAY SOLD: 06/30/2019 [facility] Methylprednisolone Methylprednisolone 05/31/2019 06:14:06 PM EST 0 completed [facility] cetirizine hydrochloride 10 MG Oral Capsule Cetirizine Cetir izine 05/17/2019 09:13:30 AM EDT 10 MG completed [facility] Doxycycline Monohydrate 50 MG Oral Capsule Doxycycline Monoh ydrate 05/17/2019 09:13:09 AM EDT 50 MG completed [facility] 600 mg 05/17/2019 12:00:00 AM EDT tablet 90 TAKE ONE TABLET BY MOUTH THREE TIMES A DAY TAKE ONE TABLET BY MOUTH THREE TIMES A DAY SOLD: 07/18/2019 [facility] 600 mg 05/17/2019 12:00:00 AM EDT tablet 90 TAKE ONE TABLET BY MOUTH THREE TIMES A DAY TAKE ONE TABLET BY MOUTH THREE TIMES A DAY SOLD: 08/15/2019 [facility] 600 mg 05/17/2019 12:00:00 AM [...] 019 12:59:00 PM EDT 200 MG completed [facility]. Devices (DURABLE MEDICAL EQUIPMENT SEE SIG) [facility] [id number] 10/09/2018 12:00:00 AM EDT aborted Use as directed. Rolling walker with seat Dx: Right ankle arthritis [facility] gabapentin 100 MG Oral Capsule gabapentin (NEURONTIN) 100 MG capsule gabapentin (NEURONTIN) 100 MG capsule 03/03/2018 12:00:00 AM EDT 100 mg Oral aborted Take 100 mg by mouth Daily [facility] maalox/lidocaine/diphenhydrAMINE (RADIATION MIXTURE) 1:1:1 o ral suspension 05/29/2017 12:00:00 AM EDT 10 mL Swish & Spit aborted Swish and spit 10 mLs every 2 (two) hours as needed (For Mouth Pain)Pharmacy compound: Maalox, lidocaine viscous 2 %, Benadryl 12.5 mg/5 mL [facility] PARoxetine (PAXIL) 30 MG tablet [id number] 30 mg Oral aborted Take 30 mg by mouth every morning [facility] Melatonin 3 MG Oral Tablet melatonin 3 MG tablet melatonin 3 MG table t 5 mg Oral aborted Take 5 mg by m outh nightly Indications: Pt takes two tabs nightly [facility] doxycycline hyclate 50 MG Oral Capsule doxycycline ( BRAMYCIN) 50 MG capsule doxycycline (VIBRAMYCIN) 50 MG capsule 100 mg Oral aborted Take 100 mg by mouth every morning [facility] Insurance Providers Payer name Policy type / Coverage type Policy ID Covered alliance party ID Covered alliance party's relationship to de la rosa Policy [place] Plan Information [facility] COMMUNITY PLAN MCDHMO [id number] SP [id number] UNHC COMMUNITY PLAN MCDHMO [id number] SP [id number] UHC I [id number] Self [id number] UHC COMMUNTY PLAN [id number] 18 [id number] UNHC COMMUNITY PLAN XIX [id number] 18 [id number] UNHC COMMUNITY PLAN MCDHMO [id number] SP [id number] UNHC COMMUNITY PLAN MCDHMO [id number] SP [id number] UH MEDICAID [id number] [facility] MEDICAID [id number] Sepideh [id number] INSURANCE COVID-19 COVID Sepideh C OVID INSURANCE COVID-19 [id number] BLUE CROSS BLUE SHIELD-O/P [id number] UNHC COMMUNITY PLAN XIX -RECURRING [id number] 18 [id number] [facility] Community Plan [id number] STPP Wrap [id number] UnitedHealthcare Other 0 Self 0 UnitedHealthcare Other 0 Self 0 UnitedHealthcare Other 0 Self 0 [facility] MEDICAID PI PI MEDICAID [id number] Sepideh [id number] UnitedHealthcare Other 0 Self 0 UnitedHealthcare Other 0 Self 0 UnitedHealthcare Other 0 Self 0 [place] Medig[place] [id number] Self [id number] Hmo Blue Option/Medicaid Health Maintenance Organization (HMO) [id number] Self [id number] [facility] Health Maintenance Organization (HMO) [id number] Self [id number] [place] Medigap Part [place] [id number] Self [id number] Hmo Blue Option/Medicaid Health Maintenance Organization (HMO) [id number] Self [id number] Medicaid Medicaid [id number] Self [id number] Uhc-Community Plan Commercial [id number] Self [id number] [place] [id number] Family Dependent [id number] [facility] Community Plan Commercial [id number] Self [id number] UnitedHealthcare Other 0 Self 0 UNHC COMMUNITY PLAN MCDO [id number] SP [id number] [place] Med[place]ap Part [place] [id number] Self [id number] Hmo Blue Option/Medicaid Health Maintenance Organization (HMO) [id number] Self [id number] [employer] Paul/MCR Health Maintenance Organization (HMO) [id number] Self [id number] Community Plan - [facility] Commercial [id number] Self [id number] Community Plan - [facility] Commercial [id number] Self [id number] UnitedHealthcare Other 0 Self 0 Medicaid [id number] Community Plan - [facility] Commercial [id number] Self [id number] [facility] [id number] 99 [id number] Community Plan - [facility] Commercial Self [employer] Paul/MCR Medigap Part [place] Med[place] Part B Self Hmo Blue Option/Medicaid Health Maintenance Organization (HMO) Self [facility] [id number] UHC PLUS [facility] COMMUNITY PLAN [id number] SELF [id number] [employer] PAUL [id number] SELF [id number] [facility] [id number] Patient [id number] [facility] [id number] Patient [id number] SELF PAY UNAVAILABLE SELF UNAVAILA BLE Medicaid Medicaid Self Uhc-Community Plan Commercial Self MEDICAID M [id number] Self [id number] UNITED HEALTHCARE(MCAID) P [id number] S [id number] [facility](MCAID) P [id number] S [id number] UNITED HEALTHCARE(MCAID) P [id number] S [id number] [facility] MEDICAID 7 [id number] 1 [id number] SELFPAY 5 UNAVAILABLE 1 UNAVAILA BLE MEDICAID 3 [id number] BLUE CHOICE OPTIONS 7 [id number] MEDICAID W [id number] S [id number] BLUE CHOICE OPTION O [id number] S [id number] BLUE CROSS [place] PLAN [id number] SP [id number] BLUE CROSS [place] PLAN [id number] SP [id number] MEDICAID [id number] SP [id number] HMO BLUE [id number] UNAVAILABLE UNAVAILA BLE Problems, Conditions, and Diagnoses Code Display Name Description Problem Type Effective Dates Data Source(s) J45.20 [id number] Mild intermittent asthma without complica tion Problem 08/03/2020 12:00:00 AM EST eCW1 ([facility]) Z68.43 [id number] BMI 50.0-59.9, adult Problem 08/03/2020 12:0 0:00 AM EST eCW1 ([facility]) G47.33 [id number] Obstructive sleep apnea Problem 08/03/2020 1 2:00:00 AM EST eCW1 ([facility]) G40.909 [id number] Seizure disorder Problem 08/03/2020 12:00:00 AM EST eCW1 ([facility]) [id number] Abdominal pain Abdominal pain Problem 01/18/2020 12:00: 00 AM EDT [facility] ([facility]) [id number] Essential hypertension Essential hypertension Problem 11/18/2019 12:00:00 AM EDT [facility] ([facility]) S92.101S Unspecified fracture of right talus, seq uela Unspecified fracture of right talus, sequela Diagnosis 06/28/2020 07:03:06 AM [facility] M19.071 Primary osteoarthritis, right ankle and foot Primary osteoarthritis, right ankle and foot Diagnosis 06/28/2020 07:03:06 AM [facility] [id number] Encounter for other preprocedural examin ation Encounter for other preprocedural examination Diagnosis 04/20/2020 02:36:00 PM EDT [facility] H6123 Impacted cerumen, bilateral Impacted cerumen, bilatera l Diagnosis 04/05/2020 10:11:00 AM EDT [facility] R1033 Periumbilical pain Periumbilical pain Diagnosis 08/2019 01:51:00 PM EDT [facility] H6122 Impacted cerumen, left ear Impacted cerumen, left ear Diagnosis 03/27/2020 12:49:00 PM EDT [facility] Z6843 Body mass index (BMI) 50.0-59.9, adult B asntos mass index (BMI) 50.0-59.9, adult Diagnosis 03/27/2020 12:49:00 PM EDT [facility] E669 Obesity, unspecified Obesity, unspecified Diagnosis 03/27/2020 12:49:00 PM EDT [facility] R569 Unspecified convulsions Unspecified convulsions Diagno sis 03/27/2020 12:49:00 PM EDT [facility] B372 Candidiasis of skin and nail Candidiasis of skin and n ail Diagnosis 03/27/2020 12:49:00 PM EDT [facility] R1030 Lower abdominal pain, unspecified Lower abdomina l pain, unspecified Diagnosis 03/27/2020 12:49:00 PM EDT [facility] N25821 Unspecified asthma, uncomplicated Unspecified as thma, uncomplicated Diagnosis 03/22/2020 03:26:00 PM EDT [facility] G8929 Other chronic pain Other chronic pain Diagnosis 03:26:00 PM EDT [facility] N56325 Personal history of nicotine dependence Personal history of nicotine dependence Diagnosis 03/09/2020 05:46:00 PM EDT [facility] K2970 Gastritis, unspecified, without bleeding Gastritis, unspecified, without bleeding Diagnosis 03/09/2020 05:46:00 PM EDT [facility] R109 Unspecified abdominal pain Unspecified abdominal pain Diagnosis 03/09/2020 05:46:00 PM EDT [facility] R631 Polydipsia Polydipsia Diagnosis 02/23/2020 10:36:00 AM ED T [facility] R358 Other polyuria Other polyuria Diagnosis 02/23/2020 10:36: 00 AM EDT [facility] J449 Chronic obstructive pulmonary disease, u nspecified Chronic obstructive pulmonary disease, unspecified Diagnosis 02/23/2020 10:36:00 AM EDT [facility] K43.2 Incisional hernia without obstruction or gangrene Incisional hernia without obstruction or Diagnosis 02/09/2020 08:51:00 AM EDT [facility] K43.0 Incisional hernia with obstruction, with out gangrene Incisional hernia with obstruction, with Diagnosis 02/09/2020 08:51:00 AM EDT [facility] J98.8 Other specified respiratory disorders Ot her specified respiratory disorders Diagnosis 02/04/2020 10:12:45 AM EDT [facility] U07.1 COVID-19 COVID-19 Diagnosis 02/04/2020 10:12:45 AM ED T [facility] K429 Umbilical hernia without obstruction or gangrene Umbilical hernia without obstruction or gangrene Diagnosis 01/27/2020 11:08:00 AM [facility] T20717 Epilepsy, unspecified, not intractable, without status epilepticus Epilepsy, unspecified, not intractable, without status epilepticus Diagnosis 01/13/2020 01:42:00 PM [facility] 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, thoracolumbar region Spondylolysi s, thoracolumbar region Diagnosis 01/12/2020 12:32:00 PM [facility] R0789 Other chest pain Other chest pain Diagnosis 01/12/2020 12 :32:00 PM [facility] K13038 Other urethral stricture, male, unspecif ied site Other urethral stricture, male, unspecified site Diagnosis 12/31/2019 08:45:00 AM [facility] R3121 Asymptomatic microscopic hematuria Asymptomatic microscopic hematuria Diagnosis 12/31/2019 08:45:00 AM [facility] Z1159 Encounter for screening for other viral diseases Encounter for screening for other viral diseases Diagnosis 12/28/2019 09:05:00 AM [facility] Z713 Dietary counseling and surveillance Dietary coun seling and surveillance Diagnosis 12/14/2019 12:59:00 PM [facility] R99 Ill-defined and unknown cause of mortali ty Ill-defined and unknown cause of mortality Diagnosis 12/14/2019 12:20:00 PM [facility] M6281 Muscle weakness (generalized) Muscle weakness (general ized) Diagnosis 11/29/2019 10:16:00 AM [facility] M545 Low back pain Low back pain Diagnosis 11/29/2019 10:16:00 AM [facility] E785 Hyperlipidemia, unspecified Hyperlipidemia, unspecifie d Diagnosis 11/25/2019 12:56:00 PM [facility] K5900 Constipation, unspecified Constipation, unspecified Di agnosis 11/25/2019 12:56:00 PM [facility] K219 Gastro-esophageal reflux disease without esophagitis Gastro-esophageal reflux disease without esophagitis Diagnosis 11/25/2019 12:56:00 PM ED [facility] J58204 Other spondylosis, thoracic region Other spondyl osis, thoracic region Diagnosis 11/19/2019 10:35:00 AM EDT [facility] C09750 Other spondylosis, lumbar region Other spondylos is, lumbar region Diagnosis 11/19/2019 10:35:00 AM EDT [facility] Z1331 Encounter for screening for depression E ncounter for screening for depression Diagnosis 11/18/2019 02:08:00 PM EDT [facility] J309 Allergic rhinitis, unspecified Allergic rhinitis, unsp ecified Diagnosis 11/18/2019 02:08:00 PM EDT [facility] R310 Gross hematuria Gross hematuria Diagnosis 10/21/2019 03:3 1:00 PM EDT [facility] R300 Dysuria Dysuria Diagnosis 10/21/2019 03:31:00 PM ED T [facility] Surgeries/Procedures Procedure Description Date Indications Data Source(s) SURGERY CASE REQUEST OUTSIDE FACILITY ONLY SURGERY CA SE REQUEST OUTSIDE FACILITY ONLY Routine 06/28/2020 1:27 PM EST Arthritis of right subtalar joint Closed displaced fracture of right talus, unspecified fracture morphology, sequela 06/28/2020 01:27:23 PM EST Closed displa loyd fracture of right talus, unspecified fracture morphology, sequelaArthritis of right subtalar joint [facility] Closed displaced fracture of right talus , unspecified fracture morphology, sequela Arthritis of right subtalar joint BLOOD TYPING ABO TYPE AND SCREEN Routine 02/09/2020 12:30 PM EDT 02/09/2020 04:30:00 PM EDT [facility] ECG ROUTINE ECG W/LEAST 12 LDS TRCG ONLY W/O I&R ECG 12-LEAD Routine 02/04/2020 11:34 AM EDT Incisional hernia with obstruction 02/04/2020 03:34:20 PM ED T Incisional hernia with obstruction [facility] Incisional hernia with obstruction BLOOD COUNT COMPLETE AUTOMATED CBC Routine 0 11:30 AM EDT Incisional hernia with obstruction 02/04/2020 03:30:00 PM ED T Incisional hernia with obstruction [facility] Incisional hernia with obstruction BASIC METABOLIC PANEL CALCIUM TOTAL BASIC METABOLIC PANEL Routi ne 02/04/2020 11:30 AM EDT Incisional hernia with obstruction 02/04/2020 03:30:00 PM ED T Incisional hernia with obstruction [facility] Incisional hernia with obstruction Medical Nutrition Therapy Assmnt Interv Face To Face 15 Min 12/14/2019 12:00:00 AM EDT [facility] ([facility]) Brief Emotional/Behav Assessment W/ Scoring Doc Per Standard Inst 11/18/2019 12:00:00 AM EDT [facility] ([facility]) EST-LEVEL 4 10/06/2019 12:00:00 AM EDT - 10/06/2019 1 2:00:00 AM EDT [facility] ([facility]) Debridement, nails, 6 or more, any method 10/06/2019 12:00:00 AM EDT - 10/06/2019 12:00:00 AM EDT [facility] ([facility]) Results ID Date Data Source [id number] 08/09/2020 02:33:00 PM EST [facility] Name Value Range Interpretation Code Description Data Giovana rce(s) Supporting Document(s) SARS-CoV-2 (COVID 19) NEGATIVE - SARS-CoV-2 (COVID19) [facility] This lab was ordered by [facility] a nd reported by [facility]. ID Date Data Source [id number] 07/31/2020 05:40:00 PM EST [facility] Name Value Range Interpretation Code Description Data Giovana rce(s) Supporting Document(s) SARS coronavirus 2 RNA [Presence] in Res piratory specimen by TYRON with probe detection [facility] This lab was ordered by [facility] a nd reported by [facility]. ID Date Data Source [id number] 06/28/2020 01:51:39 PM EST [facility] Name Value Range Interpretation Code Description Data Giovana rce(s) Supporting Document(s) Progress Note [facility] EHDADm2xMbWSZyMi46/DPTqqNSJtp7FvLIzwJBk0DBfoXBZxL8UzDWO3nD3tWSI6MKqOOcYdWaRpVgIj [facility] [file] ICAgICAgICAgICAgICAgICAgICAgICAgICAgICAgICAgICAgICAgICAgICAgICAgICAgICAgICAgICAg ICAgICAgICAgICAgICAgICAgICAgICANCiAgICAgIC AgICAgICAgICAgICAgICAgICAgICAgICAgICAgICAgICAgICAgICAgICAgICAgICAgICAgICAgICAgIC AgICAgICAgICAgICAgICAgICAgICAgICAgICAgICAgICANCiAgICAgICAgICAgICAgICAgICAgICAgIC AgICAgICAgICAgICAgICAgICAgICAgICAgICAgICAg ICAgICAgICAgICAgICAgICAgICAgICAgICAgICAgICAgICAgICAgICAgICANCiAgICAgICAgICAgICAg ICAgICAgICAgICAgICAgICAgICAgICAgICAgICAgICAgICAgICAgICAgICAgICAgICAgICAgICAgICAg ICAgICAgICAgICAgICAgICAgICAgICAgICANCiAgIC AgICAgICAgICAgICAgICAgICAgICAgICAgICAgICAgICAgICAgICAgICAgICAgICAgICAgICAgICAgIC AgICAgICAgICAgICAgICAgICAgICAgICAgICAgICAgICAgICANCiAgICAgICAgICAgICAgICAgICAgIC AgICAgICAgICAgICAgICAgICAgICAgICAgICAgICAg ICAgICAgICAgICAgICAgICAgICAgICAgICAgICAgICAgICAgICAgICAgICAgICANCiAgICAgICAgICAg ICAgICAgICAgICAgICAgICAgICAgICAgICAgICAgICAgICAgICAgICAgICAgICAgICAgICAgICAgICAg ICAgICAgICAgICAgICAgICAgICAgICAgICAgICANCi AgICAgICAgICAgICAgICAgICAgICAgICAgICAgICAgICAgICAgICAgICAgICAgICAgICAgICAgICAgIC AgICAgICAgICAgICAgICAgICAgICAgICAgICAgICAgICAgICAgICANCiAgICAgICAgICAgICAgICAgIC AgICAgICAgICAgICAgICAgICAgICAgICAgICAgICAg ICAgICAgICAgICAgICAgICAgICAgICAgICAgICAgICAgICAgICAgICAgICAgICAgICANCiAgICAgICAg ICAgICAgICAgICAgICAgICAgICAgICAgICAgICAgICAgICAgICAgICAgICAgICAgICAgICAgICAgICAg ICAgICAgICAgICAgICAgICAgICAgICAgICAgICAgIC ANCjw/jDIfY3xbhUZsnkA6R6veRw2XXv1TIO9ax4LmVUNkITxdwhTtEseNRwNbSTBgShoJVna2WZdpEA 7EyDHwQ3OzY1XjUPtdXO2ATPEfKOUebZRhOGVrIJGmPcO0XHMiCCicCG3XyNMlBUjvXNOsWAPxFmUrSL SgRZ4KQTGnM135rjCaHc9BIw2ORbHbLN8zrs6TJljs EZDzFtwEPgc2OWzcFJ5AsQTlwHFeWZJoRYQNYlDqF2pnn4AoHenjKNMHGHnvTW0Zr0XzsIXsHJf+Pg0K VQ1fj2EpRGcxKULaOC2koq2JYJqUCwLbX4InoAfeGCHzu5zvOJDqGK2ltJCcZRH5QIEas7K9PW8jCoFu ggPdy1CfCaSlFdzjJLJnCRSuFGNcIo5eZVWpLLPlEe KcQZRTYA0PNQElTHTfeZTvPTDzMCEROH9CSWamVNL6QLCvhoOswHFsVJlvOS6PYGHhriJdYzbkFECVSU o+Fk7XBH7cg8YtQIlaNDIeLU1nlu5HZQcKGdXbD5H6yCZpN9V7TKziAn3WYAMbATQhGlRcJRFUZPpcTL 7ZSL8ybgN7KV2AcVZvCUIcYHWtfFVdTRn5V92yhPOt WYnxCH2TRKV+Jey+Gv0BUXAnYEHoGZYeUpHjLEMUYtMpM8YlS8LZg3RuY5UxHD18jSwpijChGGzmLD9Z HK7fHKEaOXDOKJ6TmZDfuP4wsmKrPlUrKYVWSsApW66otYIbTKKxQOV4OTWtGp8BUDNkM9ElckOqjTpp qbRxHUIsQKVDZH4YUNxmbkWeyMToxTfqQN13gAtcIR 4WFw3EWgQeKN3rwi6SzXAeQp3FSVKsGD4MWUUaMFWgWTBxGMD0EOCoDcJmKLcvIEWgZSJyQRU3DSVeQH PlYL7PCwItTXUrQpF0MUPqENSdVYKggb2ZSRYzAWZeTyQ4LcBrFKTdSGBjXBfvMQGrDIXfRFO8NBAqHM XmSG7CZrXgLEWxCDW5ZZFsDCQfYJEfdg3SBYKfROBj YKN1IgRtNKSoZGRwVZaaAWZsUXR1GRBkIMUrGULeNE8TPiYxTWZaQBkwCOAeDCBeZTTldx4BQFOaOSOb UEA3ReFdOKBxTBEbKLsoNBFaNJG2XyK6TCUsLGRhNU4OGsTiNKVqGNm4WFLvYSEuQKKivu6RGUCbEMEo ENN8VMGnTUTjQDRzPPgaEYIfMGG5QmOkZMPpSRVvIQ 4KRkXpUTJuLUb6LHauPCFlJUOtta5MKQWxOZWeWYS3SYCxBCNyERHzHUvuRZEhHWBfNYZhEHZuWFEkUC 1UIqWwEDKyItU1QotwNXJgOIRlgq8RVRKwWMTsGuVgZEAbYQVdQILkZYusYKTtBTGhSIK9XRYrJEGlZQ 3UQaFtSLSxQgWoXMzeCVFfCLUobc3ZZYPhSRIaPzY1 QQFpAZGaNOYoBQwbRYCwDRCsGQb0KWJwSJIeDO4CXpLtBMKqPuQ8VQidIYCbTGLdjz4KWBImTSZuLSDo QxHhSODvBANoHQbfCBSxBMC5Hpq1IVDgMYPxII4NAwHyFVOeQtFrNUyuOKRtVENhes2LFKGsCWGwJlL2 EDIyFVUnGHPzMAqaNOBuJLY8AePoNSPoLNEfJT0CCj UtAZVjLxK4YCwzHXRaZKFite2BlZEhmLzpbd9NOYhEWf4YjDphEUXeKLwbTb8gwARzDHOxCJYFYe7Skt DqVBZuHNPVYUniHAGfMQImGaLjZwUsBzB8TRAoHAI3PVAcIdxgQmJaCzHvVGIvCyB5DRCfPZPyGCOmCY KsP2OcJzslQGGbMZY5BARxNVR1NgA+NT7jUNf+Ir9Hh5LicvV6baReJAnuOfWoUz3GDFRRN9LFYb== ID Date Data Source [id number] 06/06/2020 03:12:03 PM [facility] Name Value Range Interpretation Code Description Data Giovana rce(s) Supporting Document(s) Progress Note [facility] AOIYQy2kIjRITkRj11/MKFrgEQElz0AmSSbeXHk5EFqsEMNyI3DsXLG6nV1oVXY0NWrSVrJpKbFgVJPa lbm [file] PfO9JMM6NlC4IjR+QA3hLFr+Wl6Cb5ZmenX7qxAaMVvpADYtYu1YDEXIG6PSLa== ID Date Data Source [id number] 05/10/2020 10:14:00 AM EDT [facility] ([facility]) Name Value Range Interpretation Code Description Data Giovana rce(s) Supporting Document(s) Surgical pathology study Laboratory test result [facility] ([employer] [facility]) FINAL DIAGNOSIS Esophagus, below Z-line, biopsy: Junctional mucosa with no significant pathologic changes. No evidence of intestinal metaplasia or dysplasia. 05/11/2020 - 150 CLINICAL DIAGNOSIS Heartburn, rectal bleeding, constipation 05/10/20201450 GROSS DIAGNOSIS Received in formalin labeled "biopsy below Z line R/O Juarez's" and consists of two fragments of steel tissue measuring 0.4 x 0.3 x 0.2 cm. in aggregate. All in one. -SV 05/10/2020 - 1450 Signed BRIE MONTAGUE MD 05/12/2020 1140 ID Date Data Source [id number] 05/09/2020 02:17:55 PM EDT [facility] Name Value Range Interpretation Code Description Data Giovana rce(s) Supporting Document(s) Progress Note [facility] PSVYJh3wIhBEJjMj05/ZCTpjOWCfy4AxGWdeGQg1KBuuSVVfQ8FgLES4xZ4nGAX4LRuPLwKoDmBtGMMl [facility] [file] [id number]= ID Date Data Source [id number] 05/05/2020 11:55:00 AM EDT [facility] Name Value Range Interpretation Code Description Data Giovana rce(s) Supporting Document(s) SARS coronavirus 2 RNA [facility] This lab was ordered by [facility] and reported by [facility]. ID Date Data Source [id number] 04/27/2020 06:09:28 AM EDT [facility] XR FOOT 3 OR MORE VIEWS [id number] RESUL TInterpreted by:Fallon Smith ankle 2 views [...] rce(s) Supporting Document(s) ID Date Data Source [id number] 04/27/2020 06:09:28 AM EDT [facility] XR ANKLE 2 VIEWS [id number] RESULTInterp reted by:Fallon Smith ankle 2 views [...] rce(s) Supporting Document(s) ID Date Data Source [id number] 04/26/2020 04:20:41 PM [facility] Name Value Range Interpretation Code Description Data Giovana rce(s) Supporting Document(s) Progress Note [facility] [id number] m [file] [id number]= ID Date Data Source [id number] 03/29/2020 12:20:00 [place] [address] PHONE: [phone] FAX: [phone] Name .................. : GAVIOTA Madison Acct Number.................. : [id number] ROOM. ................. : MR Number ................... : [id number] Stay type ............. : CLINIC Discharge Date......... ... : 03/27/20 Admit Date ......... : 03/27/20 Admit Phys .................... : HESTER HARD Date of ....... : 1990 Family Phys ................... : HESTER HARD Phone .................. : [phone] Age ................................ : 29 Film# .................. .:[id number] Sex ................................. : M Unsigned transcriptions are preliminary reports and do not represent a medical or legal document CT ABD & PELV W/O ORAL W/O IV [id number] COMPLETE:03/27/20 14:16 RLB 16210 (REASON FOR ABDOMEN: LOWER ABD PAIN CT [...] dose: 2953.0 mGycm Page 1 of 2 [facility] [address] [place] [address] [place] [address] PHONE: [phone] FAX: [phone] Name .................. : GAVIOTA Madison Acct Number.................. : [id number] ROOM. ................. : Number ................... : [id number] Stay type ............. : CLINIC Discharge Date......... ... : 03/27/20 Admit Date ......... : 03/27/20 Admit Phys .................... : HESTER HARD Date of ....... : 1990 Family Phys ................... : [employer] Phone .................. : [phone] Age ................................ : 29 Film# .................. .:[id number] Sex ................................. : M Unsigned transcriptions are preliminary reports and do not represent a medical or legal document CT ABD & PELV W/O ORAL W/O IV [id number] COMPLETE:03/27/20 14:16 RLB 51265 (REASON FOR ABDOMEN: LOWER ABD PAIN Electronically Reviewed and Signed By Yousif Bernardo M.D. , 03/29/20 12:20, [place] Transcribe Initials: GUCCI , Transcribe Date: 03/27/20 23:48, Dictation Date: Page 2 of 2 Name Value Range Interpretation Code Description Data Giovana rce(s) Supporting Document(s) ID Date Data Source [id number] 03/22/2020 03:26:00 PM EDT [facility] 1 OrderSheet [facility] Emergency Department [address] [place] [address] Phone #: ext- [phone] 03/22/2020 15:24 Patient: [...] 03/22/2020 16:03 Solo(HIGH ALERT Cleo Gruber R.N.MEDICATION) NayD.;GENERAL ORDERSOrder Description Priority Entered Acknowledged InitialedNPO 15:41 03/22/2020 15:42 Rc Banda Riccardo Tiffany R.N. M.D.;[Electronically signed by Enedina Banda R.N. (17:03/22/2020)][Electronically signed by Cleo Gruber M.D. (17:36 03/22/2020)][Electronically locked by Enedina Banda R.N. (17:03/22/2020)] Name Value Range Interpretation Code Description Data Giovana rce(s) Supporting Document(s) ID Date Data Source [id number] 03/22/2020 03:26:00 PM EDT [facility] 1 Medication Reconciliation Report [facility] Emergency Department [address] [place] [address] Phone #: ext- [phone] 03/22/2020 15:24 Patient: [...] ODT Oral, prn 2 Medication Reconciliation Report [facility] Emergency Department [address] [place] [address] Phone #: ext- [phone] 03/22/2020 15:24 Patient: NICK TRUJILLO Sex: M : 1990 Age: 29yThe source(s) of the original Home Medication information:patientThe following Medications were given to the patient in the Emergency Department:Ativan [IM] IM 1 mg, administered: 03/22/2020 4:03:00 PMThe following Medications were prescribed to the patient:None. Name Value Range Interpretation Code Description Data [facility] Document(s) ID Date Data Source [id number] 03/22/2020 03:26:00 PM EDT [facility] 1 Medication Administration Record [facility] Emergency Department [address] [place] [address] Phone #: ext- [phone] 03/22/2020 15:24 Patient: NICK TRUJILLO Sex: M : 1990 Age: 29yWeight: 190.5 kgHeight/Length: 71 inBMI: 58.6ALLERGIES: Dilantin, Naproxen, Naproxsyn, Tylenol with codein Date/Time Medication Administered Medication OrderedGiven ATIVAN [IM] (LORAZEPAM) Ativan IM 1 mg (HIGH ALERT16:03 03/22/2020 Dose: 1 mg IM MEDICATION)Enedina Banda R.N. Name Value Range Interpretation Code Description Data Giovana rce(s) Supporting Document(s) ID Date Data Source [id number] 03/22/2020 03:26:00 PM EDT [facility] 1 General Instructions [facility] Emergency Department [address] [place] [address] Phone #: ext- [phone] 03/22/2020 15:24 Patient: NICK TRUJILLO Sex: M : 1990 Age: 29yChronic periumbilical abdominal pain, now resolved. (recurrent).INSTRUCTIONSDrink plenty of fluids. Avoid alcohol and NSAIDS. NSAIDS include aspirin, ibuprofen (Advil) and naproxen(Aleve). Avoid fatty, fried/greasy, lactose-containing (such as milk, cheese and ice cream), salty and spicyfoods. No alcohol. Do not smoke.Warnings: Further evaluation is necessary ([facility]). It is very important to [...] provided to patient viapaper. 2 General Instructions [facility] Emergency Department [address] [place] [address] Phone #: ext- [phone] 03/22/2020 15:24 Patient: NICK TRUJILLO Sex: M : 1990 Age: 29yUnderstanding of the discharge instructions verbalized by patient. Expected course of illness, dischargeinstructions, activity level, diet, follow-up appointment and risks and benefits of treatment reviewed withpatient and understanding verbalized. Agrees to plan of care.Follow-up with: [facility], , , [address] [place] [address], [id number] Follow up in five days even if [...] options include broth, soup, 3 General Instructions [facility] Emergency Department [address] [place] [address] Phone #: ext- [phone] 03/22/2020 15:24 Patient: [...] chest, arm, back, neck or jaw pain [phone] [employer] [address] [place] [address], [place] [address]. All rights reserved. This information is not intended as asubstitute for professional medical care. Always follow your healthcare professional's instructions. You have been given the following additional information: Unknown Causes of Abdominal Pain (Male)(Electronically signed by Cleo Gruber M.D. 03/22/2020 17:36) Name Value Range Interpretation Code Description Data Giovana rce(s) Supporting Document(s) ID Date Data Source [id number] 03/22/2020 03:26:00 PM EDT [facility] 1 Clinical Report - Nurses [facility] Emergency Department [address] [place] [address] Phone #: ext- [phone] 03/22/2020 15:24 Patient: [...] Toyin Osei R.N.Acuity: LEVEL 3. --15:30 03/22/20 Toyin Osei R.N.Alert. No acute distress. --15:31 03/22/20 Toyin Osei R.N.15:30 03/22/20. BP: 156/79. MAP: 104. HR: 107. RR: 24. O2 saturation: 97%. Temp: 98.5 F. Pain levelnow: 05/06. --15:31 03/22/20 Farnaz, Toyin, R.N.Weight: 190.5 kg stated. Height/Length: 71 inches [...] Osei R.N. 2 Clinical Report - Nurses [facility] Emergency Department [address] [place] [address] Phone #: ext- [phone] 03/22/2020 15:24 Patient: INCK TRUJILLO Sex: M : 1990 Age: 29y [...] Osei R.N. 3 Clinical Report - Nurses [facility] Emergency Department [address] [place] [address] Phone #: ext- [phone] 03/22/2020 15:24 Patient: NICK TRUJILLO Sex: M : 1990 Age: 29y 15:59 03/22/20. BP: 141/76. MAP: 97. HR: 98. RR: 20. O2 saturation: 100%. --15:59 03/22/20 [facility] [place] TechEnedina ER Tech1 16:03 03/22/2020 Ativan (LORazepam) IM [...] Patient verbalized understanding. Written instructions provided in Botswanan. The patient was discharged home. He left ambulatory and via private vehicle. --17:24 03/22/20 Enedina Banda R.N.Locked/Released at 03/22/2020 17:25 by Enedina Banda R.N. Name Value Range Interpretation Code Description Data Giovana rce(s) Supporting Document(s) ID Date Data Source [id number] 03/22/2020 03:26:00 PM EDT [facility] 1 Clinical Report - Physicians/Mid Levels [facility] Emergency Department [address] [place] [address] Phone #: ext- [phone] 03/22/2020 15:24 Patient: [...] umbilical hernia repair several weeks ago at [facility], saw his surgeon last week for f/u [...] Cholecystectomy. 2 Clinical Report - Physicians/Mid Levels [facility] Emergency Department [address] [place] [address] Phone #: ext- [phone] 03/22/2020 15:24 Patient: [...] saturation: 97%. Temp: 98.5F. Pain level now: 10/10. Have been reviewed. Oxygen saturation normal.Appearance: Alert. [...] pulses 3 Clinical Report - Physicians/Mid Levels [facility] Emergency Department [address] [place] [address] Phone #: ext- [phone] 03/22/2020 15:24 Patient: NICK TRUJILLO [facility]#: [id number] Sex: M : 1990 Age: 29y equal. [...] 8.2) 4 Clinical Report - Physicians/Mid Levels [facility] Emergency Department [address] [place] [address] Phone #: ext- [phone] 03/22/2020 15:24 Patient: NICK TRUJILLO Sex: M [...] be referred to our surgeon here at [facility] for his chronic, recurrent abdominal pain, we [...] (recurrent). 5 Clinical Report - Physicians/Mid Levels [facility] Emergency Department [address] [place] [address] Phone #: ext- [phone] 03/22/2020 15:24 Patient: NICK TRUJILLO Sex: M : 1990 Age: 29yINSTRUCTIONS Drink plenty of fluids. Avoid alcohol and NSAIDS. NSAIDS include aspirin, ibuprofen (Advil) and naproxen (Aleve). Avoid fatty, fried/greasy, lactose-containing (such as milk, cheese and ice cream), salty and spicy foods. No alcohol. Do not smoke. Warnings: Further evaluation is necessary ([facility]). It is very important to [...] plan of care. Follow-up with: [facility], , , [address] [place] [address], [facility] Follow up in five days even if well. Call for an appointment. Reason for referral: evaluation and treatment. Summary of care provided to patient via paper. 6 Clinical Report - Physicians/Mid Levels [facility] Emergency Department [address] [place] [address] Phone #: ext- [phone] 03/22/2020 15:24 Patient: NICK TRUJILLO Sex: M : 1990 Age: 29y(Electronically signed by Cleo Gruber M.D. 03/22/2020 17:36) Name Value Range Interpretation Code Description Data Giovana rce(s) Supporting Document(s) ID Date Data Source [id number] 03/22/2020 04:34:00 PM EDT [facility] Name Value Range Interpretation Code Description Data Giovana rce(s) Supporting Document(s) Lipase [Enzymatic activity/volume] in Serum or Plasma 34 U/L 13 - 60 [facility] ID Date Data Source [id number] 03/22/2020 04:34:00 PM EDT [facility] Name Value Range Interpretation Code Description Data Giovana rce(s) Supporting Document(s) COMPREHENSIVE METABOLIC PANEL [facility] COMPREHENSIVE METABOLIC PANEL Sodium [Moles/volume] in Serum or Plasma 140 mEq/L 134 - 153 [facility] Potassium [Moles/volume] in Serum or Plasma 4.2 mEq/L 3.6 - 5.0 [facility] Chloride [Moles/volume] in Serum or Plasma 106 mEq/L 98 - 107 [facility] Carbon dioxide, total [Moles/volume] in Serum or Plasma 24 MEQ/L 22 - 30 [facility] Glucose [Mass/volume] in Serum or Plasma 110 MG/DL 65 - 110 [facility] BUN 12 MG/DL 7 - 21 [facility] Creatinine [Mass/volume] in Serum or Plasma 0.9 MG/DL 0.7 - 1.5 [facility] BUN/CREAT 13 8 - 27 [facility] Protein [Mass/volume] in Serum or Plasma 7.7 G/DL 6.3 - 8.2 [facility] Albumin [Mass/volume] in Serum or Plasma 4.1 G/DL 3.9 - 5.0 [facility] Globulin [Mass/volume] in Serum by calculation 3.6 GM/DL 2.4 - 3.2 H [facility] A/G RATIO 1.1 0.8 - 2.0 [facility] Calcium [Mass/volume] in Serum or Plasma 9.0 MG/DL 8.4 - 10.2 [facility] Bilirubin.total [Mass/volume] in Serum or Plasma <0.7 MG/DL 0.2 - 1.3 [facility] Alkaline phosphatase [Enzymatic activity/volume] in Serum or Plasma 83 U/L 38 - 126 [facility] Aspartate aminotransferase [Enzymatic activity/volume] in Serum or Plasma 27 U/L 5 - 40 [facility] Alanine aminotransferase [Enzymatic activity/volume] in Seru m or Plasma 37 U/L 7 - 56 [facility] Anion gap 3 in Serum or Plasma 10.0 mmol/L 8.0 - 16.0 [facility] AGE 29 yrs [facility] NON-AA GFR >60 mL/min [facility] Hosp ital AFR AMER GFR >60 mL/min [facility] Ho spital Male GFR In terprentation [...] >32 mL/min Normal ID Date Data Source [id number] 03/22/2020 04:15:00 PM EDT [facility] Name Value Range Interpretation Code Description Data Giovana rce(s) Supporting Document(s) CBC W/AUTOMATED DIFF [facility] COMPLETE BLOOD COUNT Leukocytes [#/volume] in Blood by Automated count 9.6 10^3/uL 4.2 - 1 1.0 [facility] Erythrocytes [#/volume] in Blood by Automated count 5.41 10^6/uL 4. 50 - 6.30 [facility] Hemoglobin [Mass/volume] in Blood 15.9 g/dL 14.0 - 16.0 [facility] Hematocrit [Volume Fraction] of Blood by Automated count 48.7 % 4 1.0 - 51.0 [facility] Erythrocyte mean corpuscular volume [Entitic volume] by Auto mated count 90.0 fL 80.0 - 94.0 [facility] Erythrocyte mean corpuscular hemoglobin [Entitic mass] by Automated count 29.4 pg 27.0 - 34.0 [facility] Erythrocyte mean corpuscular hemoglobin concentration [Mass/volume] by Automated count 32.6 g/dL 31.0 - 36.0 [facility] Erythrocyte distribution width [Ratio] by Automated count 14.4 % 11.5 - 14.8 [facility] Platelets [#/volume] in Blood by Automated count 197 10^3/uL 150 - 45 0 [facility] Platelet mean volume [Entitic volume] in Blood by Automated count 9.0 fL 7.4 - 10.4 [facility] Neutrophils/100 leukocytes in Blood by Automated count 63.6 % 37. 0 - 80.0 [facility] Lymphocytes/100 leukocytes in Blood by Manual count 22.2 % 25.0 - 40.0 L [facility] Monocytes/100 leukocytes in Blood by Automated count 9.9 % 3.0 - 8.0 H [facility] Eosinophils/100 leukocytes in Blood by Automated count 3.7 % 0.0 - 7.0 [facility] Basophils/100 leukocytes in Blood by Automated count 0.3 % 0.0 - 2.0 [facility] %IG 0.3 % 0.0 - 0.0 H [facility] Hospit al %NRBC 0.0 % 0.0 - 0.0 [facility] al Neutrophils [#/volume] in Blood by Automated count 6.13 10^3/uL 2.00 - 6.90 [facility] Lymphocytes [#/volume] in Blood by Automated count 2.14 10^3/uL 0.60 - 3.40 [facility] Monocytes [#/volume] in Blood by Automated count 0.95 10^3/uL 0.00 - 0.90 H [facility] Eosinophils [#/volume] in Blood by Automated count 0.36 10^3/uL 0.00 - 0.70 [facility] Basophils [#/volume] in Blood by Automated count 0.03 10^3/uL 0.00 - 0.20 [facility] #IG 0.03 10^3/uL 0.00 - 0.10 [facility] ospital #NRBC 0.00 10^3/uL 0.00 - 0.00 [facility] ospital MANUAL DIFF NOT INDICATED [facility] RBC MORPH NOT INDICATED [facility] spital ID Date Data Source [id number] 03/13/2020 02:06:00 PM EDT [facility] [address] [place] [address] PHONE: [phone] FAX: [phone] Name .................. : GAVIOTA Madison Acct Number.................. : [id number] ROOM. ................. : TR-08 MR Number ................... : [id number] Stay type ............. : E/R Discharge Date......... ... : Admit Date ......... : 03/09/20 Admit Phys .................... : AMERNATH L Date of ....... : 1990 Family Phys ................... : HESTER HARD Phone .................. : [phone] Age ................................ : 29 Film# .................. .:[id number] Sex ................................. : M Unsigned transcriptions are preliminary reports and do not represent a medical or legal document CT ABD & PELV W/ORAL ONLY [id number] COMPLETE:03/09/20 21:11 KJE [id number] Reason(s): Abdominal Pain CT OF THE ABDOMEN [...] 75 Isovue 370 Page 1 of 2 [facility] [address] [place] [address] [place] [address] PHONE: [phone] FAX: [phone] Name .................. : GAVIOTA Madison Acct Number.................. : [id number] ROOM. ................. : TR-08 MR Number ................... : [id number] Stay type ............. : E/R Discharge Date......... ... : Admit Date ......... : 03/09/20 Admit Phys .................... : TALIA Madison Date of ....... : 1990 Family Phys ................... : HESTER HARD Phone .................. : [phone] Age ................................ : 29 Film# .................. .:[id number] Sex ................................. : M Unsigned transcriptions are preliminary reports and do not represent a medical or legal document CT ABD & PELV W/ORAL ONLY [id number] COMPLETE:03/09/20 21:11 KJE [id number] Reason(s): Abdominal Pain Method of administration: Intravenous Electronically Reviewed and Signed By Yousif Bernardo M.D. , 03/13/20 14:06, MICHELY Transcribe Initials: GUCCI , Transcribe Date: 03/09/20 23:30, Dictation Date: Copy for: EMERGENCY DEPT via modem Copy for: 710 MED REC DISCHARGED Page 2 of 2 Name Value Range Interpretation Code Description Data Giovana rce(s) Supporting Document(s) ID Date Data Source [id number] 03/09/2020 05:46:00 PM EDT [facility] 1 OrderSheet [facility] Emergency Department [address] [place] [address] Phone #: ext- [phone] 03/09/2020 17:13 Patient: [...] Description Priority Entered Acknowledged Initialed 2 OrderSheet [facility] Emergency Department [address] [place] [address] Phone #: ext- [phone] 03/09/2020 17:13 Patient: NICK TRUJILLO Sex: M : 1990 Age: 29yNS IV : Bolus 1000 STAT 18:54 03/09/2020 Cancelled: Physician Order 21:14 StevenmL, then 150 mL/hr Hitesh Melgar RN(NOW x1) Byron;Protonix IVPB 40 18:54 03/09/2020 Cancelled: Physician Order 21:14 Luisenmg with Dextrose Hitesh Melgar RN100 ml spike bag Byron;(D5W)GENERAL ORDERSOrder Description Priority Entered Acknowledged Initialed[Electronically signed by Bean Peace RN (00:45 03/10/2020)][Electronically signed by Hitesh Melgar M.D. (03:45 03/10/2020)][Electronically locked by Bean Peace RN (00:45 03/10/2020)] Name Value Range Interpretation Code Description Data Giovana rce(s) Supporting Document(s) ID Date Data Source [id number] 03/09/2020 05:46:00 PM EDT [facility] 1 Medication Reconciliation Report [facility] Emergency Department [address] [place] [address] Phone #: ext- [phone] 03/09/2020 17:13 Patient: [...] ODT Oral, prn 2 Medication Reconciliation Report [facility] Emergency Department [address] [place] [address] Phone #: ext- [phone] 03/09/2020 17:13 Patient: NICK TRUJILLO Sex: M : 1990 Age: 29yThe source(s) of the original Home Medication information:Not obtained.The following Medications were given to the patient in the Emergency Department:None.The following Medications were prescribed to the patient:None. Name Value Range Interpretation Code Description Data Giovana rce(s) Supporting Document(s) ID Date Data Source [id number] 03/09/2020 05:46:00 PM EDT [facility] 1 Medication Administration Record [facility] Emergency Department [address] [place] [address] Phone #: ext- [phone] 03/09/2020 17:13 Patient: NICK TRUJILLO Sex: M : 1990 Age: 29yWeight: 179.1 kgHeight/Length: 71 inBMI: 55.1ALLERGIES: Naproxen, Dilantin, Tylenol with codiene, Naproxsyn, Tylenol with codeinDate/Time Medication Administered Medication Ordered Name Value Range Interpretation Code Description Data Giovana rce(s) Supporting Document(s) ID Date Data Source [id number] 03/09/2020 05:46:00 PM EDT [facility] 1 General Instructions [facility] Emergency Department [address] [place] [address] Phone #: ext- [phone] 03/09/2020 17:13 Patient: [...] when you follow up. 2 General Instructions [facility] Emergency Department [address] [place] [address] Phone #: ext- [phone] 03/09/2020 17:13 Patient: NICK TRUJILLO Sex: M [...] your healthcare provider or specialist for f geoffreyther recommendations. If you have diarrhea, it may [...] red or black color) 3 General Instructions [facility] Emergency Department [address] [place] [address] Phone #: ext- [phone] 03/09/2020 17:13 Patient: NICK TRUJILLO Sex: M : 1990 Age: 29y Jaundice (yellow color of eyes and skin) New onset of weakness, dizziness or fainting New onset of chest, arm, back, neck or jaw pain [phone] [employer] [address] [place] [address], [place] [address]. All rights reserved. This information is not [...] bloating Feeling full quickly 4 General Instructions [facility] Emergency Department [address] [place] [address] Phone #: ext- [phone] 03/09/2020 17:13 Patient: [...] dizzy Shortness of breath 5 General Instructions [facility] Emergency Department [address] [place] [address] Phone #: ccl- [phone] 03/09/2020 17:13 Patient: NICK TRUJILLO Sex: M : 1990 Age: 29y Unexplained weight loss Fever of 100.4F (38C) or higher, or as directed by your healthcare provider [phone] [employer]. [address] [place] [address]. All rights reserved. This information is not [...] rce(s) Supporting Document(s) ID Date Data Source [id number] 03/09/2020 [facility]:46[facility] - [facility] Emergency Department [address] [place] [address] Phone #: ext- [phone] 03/09/2020 17:13 Patient: NICK TRUJILLO Sex: M : 1990 Age: 29yTRIAGEArrived by EMS. Historian: patient. ( PT HAD HERNIA SURGERY 4 WEEKS AGO AND HE SAYS MAGNOLIA ALMIRIAM. NO DRAINAGE. PT HAS APPT NEXT TUES WITH SURGEON-DR. FINNEY IN [place].PROCEDURE WASA T KEASBEY).Triage time: 17:14 03/09/2020. 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 --17:18 03/09/20 Enedina Banda R.N.17:14 03/09/20. BP: 153/90. HR: 106. RR: 20. O2 saturation: 96%. Temp: 98.8 F. Pain level now 05/06.--17:18 03/09/20 Enedina Banda R.N.Weight: 179.1 kg. Height/Length: [...] Banda R.N.Naproxsyn. 2 Clinical Report - Nurses [facility] Emergency Department [address] [place] [address] Phone #: ext- [phone] 03/09/2020 17:13 Patient: [...] treatment room. --17:18 03/09/20 Enedina Banda R.N.PHYSICAL OXMCYMDEVW20:29 03/09/20. To room via stretcher.GENERAL / NEURO [...] RR: 16. O2 saturation: 97%. --18:27 03/09/20 [facility] [place] TechEnedina Tech1 18:30 03/09/20. Patient gowned. Head of bed elevated 75 degrees. Two patient identifiers checked. Call light placed in reach. Bed placed in lowest position. Brakes of bed on. Patient ready for evaluation- chart flagged. --18:30 03/09/20 Phillip Drummond RN 3 Clinical Report - Nurses [facility] Emergency Department [address] [place] [address] Phone #: ext- [phone] 03/09/2020 17:13 [id number] Sex[facility] M : 1990 Age: 29y 19:16 03/09/2020 Two (2) unsuccessful IV access attempts including the right antecubital space. --19:03/09/20 Phillip Drummond RN Checked patient name and birthdate: patient confirmed. Blood samples drawn by tech. (1909). Checked patient name and birthdate: patient confirmed. Clean catch urine collected; sample sent to lab for urinalysis. Specimen labeled in the presence of the patient (1909). --19:03/09/20 Phillip Drummond RN Reassessment acuity: LEVEL 3. [...] --23:56 03/09/20 Bean Peace RN.DISPOSITION / DISCHARGE Susy Coma Scale: 15- eyes open- spontaneous (4); best verbal response- oriented (5); best motor response- obeys commands (6). Condition at departure: improved. No learning barriers present. Reviewed referral to family practice and a it infrastructure manager for followup. Reviewed need for increased fluid intake. Activity restrictions (rest) reviewed. Patient verbalized understanding. Written instructions provided in Botswanan. The patient was discharged home. He left [...] Peace RN. 4 Clinical Report - Nurses [facility] Emergency Department [address] [place] [address] Phone #: [phone]- [phone] 03/09/2020 17:13 [id number] Sex: M : 1990 Age: 29yLocked/Released at 03/10/2020 00:45 by Bean Peace RN Name Value Range Interpretation Code Description Data Giovana rce(s) Supporting Document(s) ID Date Data Source [id number] 03/09/2020 05:46:00 PM EDT [facility] 1 Clinical Report - Physicians/Mid Levels [facility] Emergency Department [address] [place] [address] Phone #: ext- [phone] 03/09/2020 17:13 Patient: NICK TRUJILLO Sex: M : 1990 Age: 29y Time Seen: 18:33 03/09/2020. Historian- patient. Disposition decision: 00:11 03/10/2020.HISTORY OF PRESENT ILLNESS Chief Complaint: ABDOMINAL PAIN. (29 year old morbuidly obese patient with abdominal pain past few weeks. had a cholecystectomy a nd later umbilical hernia repair done also at [facility]. has an appointment with f/u with surgeon [...] Repair. 2 Clinical Report - Physicians/Mid Levels [facility] Emergency Department [address] [place] [address] Phone #: ext- [phone] 03/09/2020 17:13 Patient: NICK TRUJILLO [facility]#: [id number] Sex: M : 1990 Age: 29y Tonsillectomy. [...] Bowel sounds 3 Clinical Report - Physicians/Mid Levels [facility] Emergency Department [address] [place] [address] Phone #: ext- [phone] 03/09/2020 17:13 Patient: NICK TRUJILLO Sex: M [...] Progress CT ABD Reason(s): Abdominal Pain TRANSPORTATION: IV? IV?(No) O2? Oxygen?(No) Tonia Exam CT ABD //T// PELV W/ORAL ONLY [address] [place] [address] PHONE: [phone] FAX: [phone] Name .................. : GAVIOTA Madison Acct Number.................. : [id number] ROOM. ... .............. : TR-08 MR Number ................... : [id number] Stay type ............. : E/R Discharge Date......... ... : Admit Date ......... : 03/09/20 Admit Phys .................... : AMERNATH L Date of ....... : 1990 Family Phys ................... : HESTER HARD Phone .................. : [phone] Age ................................ : 29 Film# .................. .:[id number] Sex ................................. : M Unsigned transcriptions are [...] thickening. 4 Clinical Report - Physicians/Mid Levels [facility] Emergency Department [address] [place] [address] Phone #: ext- [phone] 03/09/2020 17:13 Patient: NICK TRUJILLO Sex: M [...] mL: 75 [address] 1of 2 [place] [address] PHONE: [phone] FAX: [phone] Name .................. : GAVIOTA Madison Acct Number.................. : [id number] ROOM. ................. : TR-08 MR Number ................... : [id number] Stay type ............. : E/R Discharge Date......... ... : Admit Date ......... : 03/09/20 Admit Phys .................... : TALIA Madison Date of ....... : 1990 Family Phys ................... : MIR HARD Phone .................. : [phone] Age ..................... ........... : 29 Film# .................. .:[id number] Sex ................................. : M Unsigned transcriptions are [...] n 5 Clinical Report - Physicians/Mid Levels [facility] Emergency Department [address] [place] [address] Phone #: ext- [phone] 03/09/2020 17:13 Patient: [...] Male GFR Interprentation 20-49 yrs >60 mL/min Whegtx08-07 yrs >56 mL/min Normal 60-69 yrs >49 mL/min Normal 70-79yrs>42 mL/min Normal 80 and above >35 mL/min Normal Female GFRInterpretation 20-39 yrs >60 mL/min Normal 40-49 yrs >58 mL/minNormal 50-59 yrs >51 mL/min Normal 60-69 yrs >45 mL/min Mpxixq15-31 yrs >39 mL/min Normal 80 and above >32 mL/min NormalLipase: (KAVITA: 03/09/2020 19:10) ( MsgRcvd 03/09/2020 19:35) Final results Test Result Flag [...] 51.0) 6 Clinical Report - Physicians/Mid Levels [facility] Emergency Department [address] [place] [address] Phone #: ext- [phone] 03/09/2020 17:13 Patient: [...] has an appointment with his surgeon at [facility] next week, advised to keep the appointment, return if any symptoms. Patient/family counseled. Old medical records ordered. Disposition: Discharged home in good and improved cond ition (00:11 Mar 10 2020). Condition: stable. 7 Clinical Report - Physicians/Mid Levels [facility] Emergency Department [address] [place] [address] Phone #: ext- [phone] 03/09/2020 17:13 Patient: NICK TRUJILLO Sex: M [...] Name Value Range Interpretation Code Description Data [facility]) Supporting Document(s) ID Date Data Source [id number] 03/09/2020 07:33:00 PM EDT [facility] Name Value Range Interpretation Code Description Data [facility](s) Supporting Document(s) [facility] COL[facility] yellow NORMAL: Yellow [facility] CLARITY clear NORMAL: Clear [facility] Specific gravity of Urine by Test strip 1.010 1.001 - 1.030 [facility] pH 7 5 - 9 [facility] Glucose [Mass/volume] in Urine by Test strip NORM NORMAL: Negat [facility] Bilirubin.total [Presence] in Urine by Test strip NEG NORMAL: Negative [facility] Ketones [Presence] in Urine by Test strip NEG NORMAL: Negative [facility] Protein [Mass/volume] in Urine by Test strip NEG NORMAL: Negat [facility] Nitrite [Presence] in Urine by Test strip NEG NORMAL: Negative [facility] BLOOD NEG NORMAL: Negative [facility] Leukocyte esterase [Presence] in Urine by Test strip NEG MILAGROS L: Negative [facility] Urobilinogen [Mass/volume] in Urine by Test strip NOR less vanessa n 1.0 mg/dL [facility] MICROSCOPIC Not Indicate [facility] ospital ID Date Data Source [id number] 03/09/2020 07:38:00 PM EDT [facility] Name Value Range Interpretation Code Description Data Giovana rce(s) Supporting Document(s) COMPREHENSIVE METABOLIC PANEL [facility] COMPREHENSIVE METABOLIC PANEL Sodium [Moles/volume] in Serum or Plasma 142 mEq/L 134 - 153 [facility] Potassium [Moles/volume] in Serum or Plasma 3.8 mEq/L 3.6 - 5.0 [facility] Chloride [Moles/volume] in Serum or Plasma 106 mEq/L 98 - 107 [facility] Carbon dioxide, total [Moles/volume] in Serum or Plasma 21 MEQ/L 22 - 30 L [facility] Glucose [Mass/volume] in Serum or Plasma 118 MG/DL 65 - 110 H [facility] BUN 11 MG/DL 7 - 21 [facility] al Creatinine [Mass/volume] in Serum or Plasma 0.9 MG/DL 0.7 - 1.5 [facility] BUN/CREAT 12 8 - 27 [facility] Protein [Mass/volume] in Serum or Plasma 7.8 G/DL 6.3 - 8.2 [facility] Albumin [Mass/volume] in Serum or Plasma 4.4 G/DL 3.9 - 5.0 [facility] Globulin [Mass/volume] in Serum by calculation 3.4 GM/DL 2.4 - 3.2 H [facility] A/G RATIO 1.3 0.8 - 2.0 [facility] Calcium [Mass/volume] in Serum or Plasma 9.2 MG/DL 8.4 - 10.2 [facility] Bilirubin.total [Mass/volume] in Serum or Plasma <0.7 MG/DL 0.2 - 1.3 [facility] Alkaline phosphatase [Enzymatic activity/volume] in Serum or Plasma 98 U/L 38 - 126 [facility] Aspartate aminotransferase [Enzymatic activity/volume] in Serum or Plasma 20 U/L 5 - 40 [facility] Alanine aminotransferase [Enzymatic activity/volume] in Seru m or Plasma 32 U/L 7 - 56 [facility] Anion gap 3 in Serum or Plasma 15.0 mmol/L 8.0 - 16.0 [facility] AGE 29 yrs [facility] NON-AA GFR >60 mL/min [facility] ital AFR AMER GFR >60 mL/min [facility] Male GFR In terprentation [...] >32 mL/min Normal ID Date Data Source [id number] 03/09/2020 07:35:00 PM EDT [facility] Name Value Range Interpretation Code Description Data Giovana rce(s) Supporting Document(s) Lipase [Enzymatic activity/volume] in Serum or Plasma 39 U/L 13 - 60 [facility] ID Date Data Source [id number] 03/09/2020 07:19:00 PM EDT [facility] Name Value Range Interpretation Code Description Data Giovana rce(s) Supporting Document(s) Lactate [Moles/volume] in Serum or Plasma 3.4 MMOL/L 0.2 - 2.2 H [facility] ID Date Data Source [id number] 03/09/2020 07:17:00 PM EDT [facility] Name Value Range Interpretation Code Description Data Giovana rce(s) Supporting Document(s) CBC W/AUTOMATED DIFF [facility] COMPLETE BLOOD COUNT Leukocytes [#/volume] in Blood by Automated count 11.1 10^3/uL 4.2 - 11.0 H [facility] Erythrocytes [#/volume] in Blood by Automated count 5.71 10^6/uL 4. 50 - 6.30 [facility] Hemoglobin [Mass/volume] in Blood 16.4 g/dL 14.0 - 16.0 H [facility] Hematocrit [Volume Fraction] of Blood by Automated count 51.4 % 4 1.0 - 51.0 H [facility] Erythrocyte mean corpuscular volume [Entitic volume] by Auto mated count 90.0 fL 80.0 - 94.0 [facility] Erythrocyte mean corpuscular hemoglobin [Entitic mass] by Automated count 28.7 pg 27.0 - 34.0 [facility] Erythrocyte mean corpuscular hemoglobin concentration [Mass/volume] by Automated count 31.9 g/dL 31.0 - 36.0 [facility] Erythrocyte distribution width [Ratio] by Automated count 14.1 % 11.5 - 14.8 [facility] Platelets [#/volume] in Blood by Automated count 209 10^3/uL 150 - 45 0 [facility] Platelet mean volume [Entitic volume] in Blood by Automated count 9.0 fL 7.4 - 10.4 [facility] Neutrophils/100 leukocytes in Blood by Automated count 71.7 % 37. 0 - 80.0 [facility] Lymphocytes/100 leukocytes in Blood by Manual count 16.6 % 25.0 - 40.0 L [facility] Monocytes/100 leukocytes in Blood by Automated count 5.9 % 3.0 - 8.0 [facility] Eosinophils/100 leukocytes in Blood by Automated count 5.1 % 0.0 - 7.0 [facility] Basophils/100 leukocytes in Blood by Automated count 0.3 % 0.0 - 2.0 [facility] %IG 0.4 % 0.0 - 0.0 [facility] %NRBC 0.0 % 0.0 - 0.0 [facility] al Neutrophils [#/volume] in Blood by Automated count 7.98 10^3/uL 2.00 - 6.90 H [facility] Lymphocytes [#/volume] in Blood by Automated count 1.85 10^3/uL 0.60 - 3.40 [facility] Monocytes [#/volume] in Blood by Automated count 0.66 10^3/uL 0.00 - 0.90 [facility] Eosinophils [#/volume] in Blood by Automated count 0.57 10^3/uL 0.00 - 0.70 [facility] Basophils [#/volume] in Blood by Automated count 0.03 10^3/uL 0.00 - 0.20 [facility] #IG 0.04 10^3/uL 0.00 - 0.10 [facility] #NRBC 0.00 10^3/uL 0.00 - 0.00 [facility] ospital MANUAL DIFF NOT INDICATED [facility] RBC MORPH NOT INDICATED [facility] spital ID Date Data Source [id number] 02/23/2020 11:36:00 AM EDT [facility] ([facility]) Name Value Range Interpretation Code Description Data Giovana rce(s) Supporting Document(s) CBC W/Automated Diff Laboratory test result [facility] ([facility]) Is patient fasting? N WBC 10.6 10^3/uL 4.2-11.0 [facility] ([facility]) Is patient fasting? N RBC 5.78 10^6/uL 4.50-6.30 [facility] ([facility]) Is patient fasting? N Hematocrit 51.1 % 41.0-51.0 Above high normal [facility]) Is patient fasting? N Hemoglobin 16.3 g/dL 14.0-16.0 Above high normal [facility] ([facility]) Is patient fasting? N MCV 88.4 fL 80.0-94.0 [facility] ([facility]) Is patient fasting? N RDW 13.5 % 11.5-14.8 [facility] ([facility]) Is patient fasting? N MCH 28.2 pg 27.0-34.0 [facility] ([facility]) Is patient fasting? N MCHC 31.9 g/dL 31.0-36.0 [facility] ([facility]) Is patient fasting? N Platelets 262 10^3/uL 150-450 [facility] ([facility]) Is patient fasting? N Neut 65.2 % 37.0-80.0 [facility] ([facility]) Is patient fasting? N Lymph 18.6 % 25.0-40.0 Below low normal [facility] ( [facility]) Is patient fasting? N MPV 9.6 fL 7.4-10.4 [facility] ([facility]) Is patient fasting? N Eos 7.6 % 0.0-7.0 Above high normal [facility] ([facility]) Is patient fasting? N Maries 7.6 % 3.0-8.0 [facility] ([facility]) Is patient fasting? N Baso 0.5 % 0.0-2.0 [facility] ([facility]) Is patient fasting? N %NRBC 0.0 % 0.0-0.0 [facility] ([facility]) Is patient fasting? N %Ig 0.5 % 0.0-0.0 Above high normal [facility] ([facility]) Is patient fasting? N #Lymph 1.97 10^3/uL 0.60-3.40 [facility] ([facility]) Is patient fasting? N #Neut 6.92 10^3/uL 2.00-6.90 Above high normal [facility] ([facility]) Is patient fasting? N #Maries 0.81 10^3/uL 0.00-0.90 [facility] ([facility]) Is patient fasting? N #Eos 0.81 10^3/uL 0.00-0.70 Above high normal [facility] ([facility]) Is patient fasting? N #Baso 0.05 10^3/uL 0.00-0.20 [facility] ([facility]) Is patient fasting? N #Ig 0.05 10^3/uL 0.00-0.10 [facility] ([facility]) Is patient fasting? N Manual Diff Laboratory test result [facility] ([facility]) Is patient fasting? N RBC Morph Laboratory test result [facility] ([facility]) Is patient fasting? N #NRBC 0.00 10^3/uL 0.00-0.00 [facility] ([facility]) Is patient fasting? N ID Date Data Source [id number] 02/23/2020 11:36:00 AM EDT [facility] ([facility]) Name Value Range Interpretation Code Description Data Giovana rce(s) Supporting Document(s) Hemoglobin A1c/Hemoglobin.total in Blood 4.9 % 4.4-6.1 [facility] ([facility]) Is patient fasting? N Topiramate [Mass/volume] in Serum or Plasma 7.3 ug/mL 2.0-25.0 [facility] ([facility]) Is patient fasting? N ID Date Data Source [id number] 02/23/2020 11:36:00 AM EDT [facility] ([facility]) Name Value Range Interpretation Code Description Data Giovana rce(s) Supporting Document(s) Comprehensive Metabo Laboratory test result [facility] ([facility]) Is patient fasting? N Chloride 103 meq/L 98-107 [facility] ([facility]) Is patient fasting? N Sodium 141 meq/L 134-153 [facility] ([facility]) Is patient fasting? N Potassium 3.8 meq/L 3.6-5.0 [facility] ([facility]) Is patient fasting? N Co2 25 meq/L 22-30 [facility] ([facility]) Is patient fasting? N BUN 8 mg/dL 7-21 [facility] ([facility]) Is patient fasting? N Glucose 86 mg/dL 65-110 [facility] ([facility]) Is patient fasting? N Creatinine 0.9 mg/dL 0.7-1.5 [facility] ([facility]) Is patient fasting? N Total Protein 7.8 g/dL 6.3-8.2 [facility] ([facility]) Is patient fasting? N BUN/Creat 9 8-27 [facility] ([facility]) Is patient fasting? N A/G Ratio 1.2 0.8-2.0 [facility] ([facility]) Is patient fasting? N Albumin 4.3 g/dL 3.9-5.0 [facility] ([facility]) Is patient fasting? N Globulin 3.5 GM/DL 2.4-3.2 Above high normal [facility] ([facility]) Is patient fasting? N Calcium 9.4 mg/dL 8.4-10.2 [facility] ([facility]) Is patient fasting? N Alkaline Phos 101 U/L 38-126 [facility] ([facility]) Is patient fasting? N Total Bili Laboratory test result 0.2-1.3 [facility] ([facility]) Is patient fasting? N Sgot/Ast 19 U/L 5-40 [facility] ([facility]) Is patient fasting? N SGPT/Alt 35 U/L 7-56 [facility] ([facility]) Is patient fasting? N Anion Gap 13.0 mmol/L 8.0-16.0 [facility] ([facility]) Is patient fasting? N Age 29 yrs [facility] ([facility]) Is patient fasting? N Non-Aa GFR Laboratory test result [facility] ([facility]) Is patient fasting? N Afr Amer GFR Laboratory test result [facility] ([facility]) Is patient fasting? N ID Date Data Source [id number] 02/23/2020 11:36:00 AM EDT [facility] ([facility]) Name Value Range Interpretation Code Description Data Giovaan rce(s) Supporting Document(s) Thyrotropin [Units/volume] in Serum or Plasma 1.92 uIU/mL 0.47-5.01 [facility] ([facility]) Is patient fasting? N Thyroxine (T4) free [Mass/volume] in Serum or Plasma 0.85 ng/dL 0.93-1.70 Below low normal [facility] ([facility]) Is patient fasting? N ID Date Data Source [id number] 02/23/2020 11:36:00 AM EDT [facility] ([facility]) Name Value Range Interpretation Code Description Data Giovana rce(s) Supporting Document(s) Free [place] Lt Chains,S 31.4 mg/L 3.3-19.4 Above high normal [facility] ([facility]) Is patient fasting? N [place]/Lambda Ratio,S 1.03 NA 0.26-1.65 [facility] ([facility]) Is patient fasting? N Free [place] Lt Chains,S 30.5 mg/L 5.7-26.3 Above high normal [facility] ([facility]) Is patient fasting? N ID Date Data Source [id number] 02/29/2020 07:03:00 AM EDT [facility] Name Value Range Interpretation Code Description Data Giovana rce(s) Supporting Document(s) Topiramate [Mass/volume] in Serum or Plasma 7.3 ug/mL 2.0-25.0 [facility] This test was developed and its performa nce characteristicsdetermined by [facility]. It has not been cleared or approvedby the Food and Drug Administration. Detection Limit = 1.0 ID Date Data Source [id number] 02/26/2020 06:44:00 AM EDT [facility] Name Value Range Interpretation Code Description Data Giovana rce(s) Supporting Document(s) Immunoglobulin light chains.kappa.free [Mass/volume] in Seru m 31.4 mg/L 3.3-19.4 H [facility] Immunoglobulin light chains.lambda.free [Mass/volume] in Serum or Plasma 30.5 mg/L 5.7-26.3 H [facility] Immunoglobulin light chains.kappa.free/I mmunoglobulin light chains.lambda.free [Mass Ratio] in Serum 1.03 NA 0.26-1.65 [facility] ID Date Data Source [id number] 02/23/2020 11:36:00 AM EDT [facility] ([facility]) Name Value Range Interpretation Code Description Data Giovana rce(s) Supporting Document(s) Thyrotropin [Units/volume] in Serum or Plasma Laboratory test result [facility] ([facility]) Thyroxine (T4) free [Mass/volume] in Serum or Plasma Laboratory alok t result [facility] ([facility]) Immunoglobulin light chains.kappa.free [Mass/volume] i n Serum Laboratory test result [facility] ([facility]) ID Date Data Source [id number] 02/23/2020 04:35:00 PM EDT [facility] Name Value Range Interpretation Code Description Data Giovana rce(s) Supporting Document(s) Thyroxine (T4) free index in Serum or Plasma by calculation 0.85 NG/DL 0.93 - 1.70 L [facility] ID Date Data Source [id number] 02/23/2020 04:33:00 PM EDT [facility] Name Value Range Interpretation Code Description Data Giovana rce(s) Supporting Document(s) Thyrotropin [Units/volume] in Serum or Plasma by Detec tion limit <= 0.05 mIU/L 1.92 uIU/mL 0.47 - 5.01 [facility] ID Date Data Source [id number] 02/23/2020 04:19:00 PM EDT [facility] Name Value Range Interpretation Code Description Data Giovana rce(s) Supporting Document(s) CBC W/AUTOMATED DIFF [facility] COMPLETE BLOOD COUNT Leukocytes [#/volume] in Blood by Automated count 10.6 10^3/uL 4.2 - 11.0 [facility] Erythrocytes [#/volume] in Blood by Automated count 5.78 10^6/uL 4. 50 - 6.30 [facility] Hemoglobin [Mass/volume] in Blood 16.3 g/dL 14.0 - 16.0 H [facility] Hematocrit [Volume Fraction] of Blood by Automated count 51.1 % 4 1.0 - 51.0 H [facility] Erythrocyte mean corpuscular volume [Entitic volume] by Auto mated count 88.4 fL 80.0 - 94.0 [facility] Erythrocyte mean corpuscular hemoglobin [Entitic mass] by Automated count 28.2 pg 27.0 - 34.0 [facility] Erythrocyte mean corpuscular hemoglobin concentration [Mass/volume] by Automated count 31.9 g/dL 31.0 - 36.0 [facility] Erythrocyte distribution width [Ratio] by Automated count 13.5 % 11.5 - 14.8 [facility] Platelets [#/volume] in Blood by Automated count 262 10^3/uL 150 - 45 0 [facility] Platelet mean volume [Entitic volume] in Blood by Automated count 9.6 fL 7.4 - 10.4 [facility] Neutrophils/100 leukocytes in Blood by Automated count 65.2 % 37. 0 - 80.0 [facility] Lymphocytes/100 leukocytes in Blood by Manual count 18.6 % 25.0 - 40.0 L [facility] Monocytes/100 leukocytes in Blood by Automated count 7.6 % 3.0 - 8.0 [facility] Eosinophils/100 leukocytes in Blood by Automated count 7.6 % 0.0 - 7.0 H [facility] Basophils/100 leukocytes in Blood by Automated count 0.5 % 0.0 - 2.0 [facility] %IG 0.5 % 0.0 - 0.0 H [facility] Hospit al %NRBC 0.0 % 0.0 - 0.0 [facility] al Neutrophils [#/volume] in Blood by Automated count 6.92 10^3/uL 2.00 - 6.90 H [facility] Lymphocytes [#/volume] in Blood by Automated count 1.97 10^3/uL 0.60 - 3.40 [facility] Monocytes [#/volume] in Blood by Automated count 0.81 10^3/uL 0.00 - 0.90 [facility] Eosinophils [#/volume] in Blood by Automated count 0.81 10^3/uL 0.00 - 0.70 H [facility] Basophils [#/volume] in Blood by Automated count 0.05 10^3/uL 0.00 - 0.20 [facility] #IG 0.05 10^3/uL 0.00 - 0.10 [facility] #NRBC 0.00 10^3/uL 0.00 - 0.00 [facility] ospital MANUAL DIFF NOT INDICATED [facility] RBC MORPH NOT INDICATED [facility] spital ID Date Data Source [id number] 02/23/2020 04:14:00 PM EDT [facility] Name Value Range Interpretation Code Description Data Giovana rce(s) Supporting Document(s) COMPREHENSIVE METABOLIC PANEL [facility] COMPREHENSIVE METABOLIC PANEL Sodium [Moles/volume] in Serum or Plasma 141 mEq/L 134 - 153 [facility] Potassium [Moles/volume] in Serum or Plasma 3.8 mEq/L 3.6 - 5.0 [facility] Chloride [Moles/volume] in Serum or Plasma 103 mEq/L 98 - 107 [facility] Carbon dioxide, total [Moles/volume] in Serum or Plasma 25 MEQ/L 22 - 30 [facility] Glucose [Mass/volume] in Serum or Plasma 86 MG/DL 65 - 110 [facility] BUN 8 MG/DL 7 - 21 [facility] Creatinine [Mass/volume] in Serum or Plasma 0.9 MG/DL 0.7 - 1.5 [facility] BUN/CREAT 9 8 - 27 [facility] Protein [Mass/volume] in Serum or Plasma 7.8 G/DL 6.3 - 8.2 [facility] Albumin [Mass/volume] in Serum or Plasma 4.3 G/DL 3.9 - 5.0 [facility] Globulin [Mass/volume] in Serum by calculation 3.5 GM/DL 2.4 - 3.2 H [facility] A/G RATIO 1.2 0.8 - 2.0 [facility] Calcium [Mass/volume] in Serum or Plasma 9.4 MG/DL 8.4 - 10.2 [facility] Bilirubin.total [Mass/volume] in Serum or Plasma <0.7 MG/DL 0.2 - 1.3 [facility] Alkaline phosphatase [Enzymatic activity/volume] in Serum or Plasma 101 U/L 38 - 126 [facility] Aspartate aminotransferase [Enzymatic activity/volume] in Serum or Plasma 19 U/L 5 - 40 [facility] Alanine aminotransferase [Enzymatic activity/volume] in Seru m or Plasma 35 U/L 7 - 56 [facility] Anion gap 3 in Serum or Plasma 13.0 mmol/L 8.0 - 16.0 [facility] AGE 29 yrs [facility] NON-AA GFR >60 mL/min [facility] AFR AMER GFR >60 mL/min [facility] sp[facility] Male GFR In terprentation [...] >32 mL/min Normal ID Date Data Source [id number] 02/23/2020 04:05:00 PM EDT [facility] Name Value Range Interpretation Code Description Data Giovana rce(s) Supporting Document(s) Hemoglobin A1c/Hemoglobin.total in Blood 4.9 % 4.4 - 6.1 [facility] {A1]{HB] ID Date Data Source [id number] 02/10/2020 09:57:30 AM EDT [facility] NT INFORMATIONPatient MRN Name Date of Age Gend*PT [id number] Nick Trujillo 1990 29 years M SDCPT Location Admission Date/Time [facility] 0851 --- --- EPI ID CSN Admitting Provider [id number] Robert Tamayo MD([id number]) [place] [address] OPERATIVE REPORT OPNAME: NICK TRUJILLO#: [id number] #: [id number] ADMISSION DATE: 02/09/2020DOB: 1990 SEX: M PT TYPE: H SURACCT #: [id number] CARE PHYSICIAN: ADITYA HELLERDATE OF OPERATION: 020PREOPERATIVE [...] reversal of general anesthesia.SANIA MENDOZA/QUEENIE Job #: [id number] DOC #: [id number] Name Value Range Interpretation Code Description Data Giovana rce(s) Supporting Document(s) ID Date Data Source [id number] 02/09/2020 02:36:21 PM EDT [facility] SPEC EXP DATE 02/12/2020PATI ENT ABO/Rh A NEGATIVEANTIBODY SCREEN NEGATIVETESTING SITE PERFORMED AT [address] [place], [place] [address]BLOOD BANK COMMENT BLOOD TYPE CONFIRMED. Name Value Range Interpretation Code Description Data Giovana rce(s) Supporting Document(s) TYPE AND SCREEN [facility] ID Date Data Source [id number] 02/08/2020 07:24:25 AM EDT [facility]FORMATIONPatient MRN Name Date of Age Gend*PT [id number] Nick Trujillo 1990 29 years M OPPT Location Admission Date/Time Visit ID Attending Provider --- --- --- Robert Tamayo MD([id number]) EPI ID CSN Admitting Provider [id number] ---OUTPATIENT / OBSERVATIONAL SURGICAL OR INVASIVE PROCEDUREName: [...] Take 15 mg by mouth nightly HistoricalProvider, MDmontelukast (SINGULAIR) 10 MG tablet Take 10 mg [...] 2 (two) times a dayHistorical Provider, Umeclidinium [place] (INCRUSE ELLIPTA) 62.5 MCG/INH AEPB Inhale 1 [...] thyromegaly. No carotid bruits.MENTAL / NEUROLOGICAL STATUS: [id number]: Clear to auscultation. No wheezes, rhonchi or [...] parts of this document, were dictated using Vaioni software. A reasonable attempt at proofreading has beenmade to minimize errors. Please call with any questions or corrections.* Name Value Range Interpretation Code Description Data Giovana rce(s) Supporting Document(s) ID Date Data Source [id number] 02/04/2020 12:14:57 PM EDT [facility] Name Value Range Interpretation Code Description Data Giovana rce(s) Supporting Document(s) EKG [facility] DWTREk7pJpURLmPrm7IxLlQjHLMmDX7topn7Y7B0kZWfT8LggUVyp4ehB7NtQ6JzOZIpUMBXSA1XgCOf jb2 [file] gmxwJrTxk7MuItoqypiVbd7shsplquYyV4o3n3KxBr 0gn8z2l3B7EVqKil8h4l5Y09HcOoa4k8c3Er4Akbox1z3f3Nr7AJvjcD7J3uAh/4rQma7Jn6/a/Oji/P nnmz7ns0/P+jitEn46bJAIQePSwhu87UJ7/YsNyo0Me535vgUwenwQRuK0uBZMUf9MOQPRjc9YIhh4Fv AUHNs3GGur1gnSOJVyla6oKIwgeaWsRVtIm97qMgm9 xHWJXiqqS3fWS/uxTExNE/uxTUyNE/uxTkzNE/ioW0qLKEenHBuAZEaqVVgXQRe/VmUxK3/aqYaK/Vgq pqaK/dgqpsaK/VgrpuaK/dgrpgaL/VgspiaL/dgspkaL/VgtpmaL/dgtpoaL/VgupqaL/dgupsaL/Vgv puaL/dgvpgaM/VgwpiaM/dgwpkaM/VgxpmaMjX/1na CFP+1UU8Z+iXqTW3R+iRgHh3R+8TcIb6N+NMsJw7D+xLwDo7U+fCgTv4S+1KbRm4so17dE5/hu07ppI/ Se0FpwZ/Zz85vuZTKi9DrdWLAx28qkWpCg4WdvMaLn67jtNnAl5PdaWnRx10cyJ/Gc5RbxJ/Qp44djCL Aj0WypLFBy60gtMtRn9EuaEgJh74ajPyBu+ZiaPvZj +5gaP/Zj/ZiaP/Zj/3dzWAEhZPsgLVAhX2baBtZxBIamOpZrO5zyGhNgJMclZzOlN6anZ/ZjDZmaQ/Zj D7naQ/7dE6yuW/0uA2qmX/0jZ0jhR/2aV5lbC/6xM1taH/1tY9mzJ/7hN0yqW/2jD7ccM/9zH3bjO/5j D7naQ/6sV0gtF/0tJ5jkJ/3xP6efK/2jM9pnL/5jD7 naQ/74Z0I0hT08aKzQhz/aoymbND/tLNs0v/g9WkOuh3bezNQ81eXJhKau8AbuJdPhE3ycR/3qA3fvZ/ 1gS3alI/4xU6jlM/9rZ2kyS/8qC1qzK/2mN5ayS/3zI8bqL/1yO0wvC/2eV8xuB/5sQ6ykM/6rS2seU/ 5zE4lvG/1lF5goO/7zJ7teP/2sE6cfO/8cF6xoF/5j D7naQ/2uG6moS/9uC7qgS/6nE5rsX/6hW0dmY/6rD0cxH/6lM1amW/6oX7trO/2aG3acK/9fI2qbP/5j D7naQ/6yQ7nnT/5mN4uyP/9xD4oqB/6uP4mtA/6fH1icA/9iA2hvN/5jD/NfDmo2UU/J7IHiLAhPdfLo BtnmS8aafzOmKL0BluD4RechTjPetEz8d9D0ni6geE 3se5la76M7CblRzB9P11C8NJ7l23G2EnjXmZ5J74V4QB2o86K6EshXyO5J07C9PL9l00L7RasBjT7b55 Z5WI7e81A5ZgqAcA2b90A5EW7d85H4ToxfjL3R2vU3OIAsH2X7J5wuoJ4Z7kT2WAYvD0M1ZTBZcj/Q9g abo8V7eWZwmA8s8JhvR7s4DbtY0u9R7rG5T0A2xi8B aF6wx4YaL8ey7Jxekme7BivwGG1IueqW86IvooL5bGRzvK3e4RjwJ2f6SjtD0p9Q1glzk0Z7BW9D8BWO bc/A9arjr5Y9SQ7G2AZGaq/Y3jnrt1T3CH1C9BHpfr/K8ejao5C8YC8D4uOgeo/W1hhan5R9SC4G5uPt bc/U6efsn2F6DSu9DYqlb7F1HdWC1mfBJ5W2xFMJJo aKBSXxqS3F6beNecLxj+dQwpkggO7R+6c3k8x6qCBBCxphkA1Z+0w9n5o4cTVnts0NlkhSY4TibqoY7K pzMsUHX0HIPMOUixVfMOukMneEOUjqCBfEsJYOtuitUcEQaHUYCIDkqQrFAkfVOusOGSsLqqjyhvscCa IWvWyuaHGO4GrmfjMRx6DMqYOUhnFdHNjzJykHB8ps EkdXmtNKu6kGYxMVqCKiWDBetZwFAexKU8cPIUgFwkgduwkjOfrEzNcerKlH4S7dVnnFs6VZaFYA2mIi gMilKnzVJFdmRpkLt37Pii52aVSt3Vtb5K2+MOISÉS/5aTswe2PQpTmy7h0ujEuk4+3HXK6WGwzrA3T3RdJ [file] UEPbQoluKq6seAB1NNBfCmoRBm3Eb4FekmC5swHlZbR5PsY5YzOoEE1U ID Date Data Source [id number] 02/04/2020 12:06:53 PM EDT [facility] INFORMATIONPatient MRN Name Date of Age Gend*PT [id number] Nick Trujillo 1990 29 years M OPPT Location Admission Date/Time Visit ID Attending Provider --- --- --- Robert Tamayo MD([id number]) EPI ID [facility] Admitting Provider [id number] ---OUTPATIENT / OBSERVATIONAL SURGICAL OR INVASIVE PROCEDUREName: [...] 2 (two) times a dayHistorical Provider, Umeclidinium [place] (INCRUSE ELLIPTA) 62.5 MCG/INH AEPB Inhale 1 [...] thyromegaly. No carotid bruits.MENTAL / NEUROLOGICAL STATUS: GRQp6TGYOM: Clear to auscultation. No wheezes, rhonchi or [...] gangrene.PLAN: Procedure: Laparoscopic incisional hernia repair.02/04/2020 12:06 Kevin Wang NPThiarnaldo document or parts of this document, were dictated using Vaioni software. A reasonable attempt at proofreading has beenmade to minimize errors. Please call with any questions or corrections.* Name Value Range Interpretation Code Description Data Giovana rce(s) Supporting Document(s) ID Date Data Source [id number] 02/04/2020 05:52:41 PM EDT [facility] Name Value Range Interpretation Code Description Data [facility] rce(s) Supporting Document(s) SODIUM 140 mmol/L (136-145) [facility] POTASSIUM 4.0 mmol/L (3.6-5.2) [facility] CHLORIDE 106 mmol/L (100-108) [facility] CO2 25 mmol/L (22-31) [facility] ANION GAP 9 mmol/L (7-16) [facility] UREA NITROGEN 13 mg/dL (7-24) [facility] CREATININE 1.08 mg/dL (0.80-1.30) [facility] BUN/CREAT RATIO 12.0 RATIO (10.0-20.0) [facility] GLUCOSE 100 mg/dL (70-99) H [facility] CALCIUM 9.2 mg/dL (8.4-10.2) [facility] GFR >60 ml/min/1.73m2 (>59) [facility] GFR ( AMER) >60 ml/min/1.73m2 (>59) [facility] GFR INTERPRETATION [facility] --NORMAL KIDNEY FUNCTION OR MILD DISEASE - GFR >OR= 60CHRONIC KIDNEY DISEASE - GFR 15 - 59RENAL FAILURE - GFR <15 Est. GFR calculation based on the MDRDstudy equation, which assumes a steadystate for creatinine. Est. GFR should notbe used for medication dosing. ID Date Data Source [id number] 02/04/2020 05:35:33 PM EDT [facility] Name Value Range Interpretation Code Description Data Giovana rce(s) Supporting Document(s) WBC 9.2 10*3/uL (4.1-11.0) [facility] RBC 5.75 10*6/uL (4.60-6.10) [facility] HGB 16.6 g/dL (13.5-18.0) [facility] HCT 51.0 % (41.0-53.0) [facility] MCV 88.8 fL (80.0-95.0) [facility] MCH 28.8 pg (27.0-32.0) [facility] MCHC 32.5 g/dL (32.0-36.0) [facility] RDW 14.8 % (10.5-14.5) H [facility] PLT 233 10*3/uL (150-450) [facility] MPV 8.4 fL (7.1-10.7) [facility] ID Date Data Source [id number] 02/04/2020 09:45:00 AM EDT [facility] Name Value Range Interpretation Code Description Data Giovana rce(s) Supporting Document(s) SARS coronavirus 2 RNA [facility] This lab was ordered by [facility] and reported by [employer]. ID Date Data Source [id number] 02/05/2020 07:07:45 PM EDT [facility] Name Value Range Interpretation Code Description Data Giovana rce(s) Supporting Document(s) SARS-COV-2 TYRON [facility] Not DetectedReference range: Not Detecte d Testing was performed using the hailey(R) SARS-CoV-2 test. This test was developed and its performance characteristics determined by [employer]. This test has not been FDA cleared [...] detected) result in this assay. Performed At: [facility] [id number] Job Henson MD Ph:[phone] ID Date Data Source [id number] 01/31/2020 01:46:00 PM EDT [facility] A BDOMEN WO IV CONTRASTCLINICAL [...] rce(s) Supporting Document(s) ID Date Data Source [id number] 01/27/2020 11:08:00 AM EDT [facility] 1 OrderSheet [facility] Emergency Department [address] [place] [address] Phone #: ext- [phone] 01/27/2020 11:08 Patient: NICK TRUJILLO Sex: M : 1990 Age: 29yWEIGHT:181.4 kg (M) HEIGHT:71 inches (S) BMI:55.8ALLERGIES: Dilantin, Naproxsyn, Tylenol with codeinCHIEF COMPLAINT: abdominal painDIAGNOSIS: Abdominal pain, Hernia of abdominal cavityLAB ORDERSOrder Description Priority Entered Acknowledged InitialedCBC w Diff STAT 11:01/27/2020 11:15 Milagros Vadlez MD; Bhanu RNCMP STAT 11:01/27/2020 11:15 Milagros Valdez MD; Bhanu ESPINOZALactic Acid STAT 11:01/27/2020 11:15 Milagros Valdez MD; Bhanu ESPINOZAUrinalysis (Clean STAT 11:01/27/2020 12:29 Milagros Hayes MD; Bhanu RNLipase STAT 11:14 01/27/2020 11:15 Milagros Valdez MD; Bhanu RNDIAGNOSTIC STUDY ORDERSOrder Description Priority Entered Acknowledged InitialedCT Abd PEL W/ IV STAT 11:14 01/27/2020 11:15 TerryContrast Only Milagros Morse MD; Bhanu RN(Oxygen?(No))(IV?(Yes)) NOTES: supraumbilical pain, hx of hernia Reason for Study: Abdominal PainMEDICATION/IV/DRIP/FLUID ORDERSOrder Description Priority Entered Acknowledged InitialedGENERAL ORDERSOrder Description Priority Entered Acknowledged Initialed[Electronically signed by Jennifer Russell R.N. (13:46 01/27/2020)][Electronically signed by Milagros Morse MD (00:50 01/28/2020)][Electronically locked by Jennifer Russell R.N. (13:46 01/27/2020)] Name Value Range Interpretation Code Description Data Giovana rce(s) Supporting Document(s) ID Date Data Source [id number] 01/27/2020 11:08:00 AM EDT [facility] 1 Medication Reconciliation Report [facility] Emergency Department [address] [place] [address] Phone #: ext- [phone] 01/27/2020 11:08 Patient: [...] ODT Oral, prn 2 Medication Reconciliation Report [facility] Department [address] [place] [address] Phone #: ext [phone] 01/27/2020 11:08 Patient: NICK TRUJILLO Sex: M : 1990 Age: 29yThe source(s) of the original Home Medication information:Not obtained.The following Medications were given to the patient in the Emergency Department:None.The following Medications were prescribed to the patient:None. Name Value Range Interpretation Code Description Data [facility] Supporting Document(s) ID Date Data Source [id number] 01/27/2020 11:08:00 AM EDT [facility] 1 Medication Administration Record [facility] Emergency Department [address] [place] [address] Phone #: ext- [phone] 01/27/2020 11:08 Patient: NICK TRUJILLO Sex: M : 1990 Age: 29yWeight: 181.4 kgHeight/Length: 71 inBMI: 55.8ALLERGIES: Dilantin, Naproxsyn, Tylenol with codeinDate/Time Medication Administered Medication Ordered Name Value Range Interpretation Code Description Data Giovana rce(s) Supporting Document(s) ID Date Data Source [id number] 01/27/2020 11:08:00 AM EDT [facility] 1 General Instructions [facility] Emergency Department [address] [place] [address] Phone #: ext- [phone] 01/27/2020 11:08 Patient: [...] instructions verbalized by patient. 2 General Instructions [facility] Department [address] [place] [address] Phone #: ext- [phone] 01/27/2020 11:08 Patient: [...] or constipation Chronic cough 3 General Instructions [facility] Department [address] [place] [address] Phone #: ext- [phone] 01/27/2020 11:08 Patient: [...] be pushed back in. 4 General Instructions [facility] Emergency Department [address] [place] [address] Phone #: [phone] tli- [phone] 01/27/2020 11:08 Patient: NICK TRUJILLO Sex: M [...] to the backCall 911 5 General Instructions [facility] Department [address] [place] [address] Phone #: ext- [phone] 01/27/2020 11:08 Patient: NICK TRUJILLO Sex: M : 1990 Age: 29yCall 911 if any of these occur: Severe pain, redness, or tenderness in the area near the hernia Pain worsens quickly and doesn't get better Inability to have a bowel movement or pass gas Fever of 100.4F (38C) or higher, or as directed by your healthcare provider [phone] [employer]. [address] [place] [address]. All rights reserved. This information is not intended as asubstitute for professional medical care. Always follow your healthcare professional's instructions. You have been given the following additional information: Hernia (Adult) No strenuous activity.(Electronically signed by Milagros Morse MD 01/28/2020 00:50) Name Value Range Interpretation Code Description Data Giovana rce(s) Supporting Document(s) ID Date Data Source [id number] 01/27/2020 11:08:00 AM EDT [facility] 1 Clinical Report - Nurses [facility] Emergency Department [address] [place] [address] Phone #: [phone]- [phone] 01/27/2020 11:08 Patient: NICK TRUJILLO Sex: M [...] or confirmed signs of infection present. --11:147 SuhaOctober, R.N.11:10 01/27/20. BP: 112/77. MAP: 88. HR: 95. RR: 20. O2 saturation: 98%. Temp: 99 F (oral). Pain levelnow: 03/06. --11:14 01/27/20 Suha October, R.N.Weight: 181.4 kg measured. Height/Length: 71 inches Per Patient. BMI: 55.8. --11:10 01/27/20 SuhaOctober,R.N.MedicationsAlbuterol Sulfate Inhalation, as needed. Incruse Ellipta Inhalation, [...] Oral, daily. Zofran ODT Oral, as needed. --11:01/27/20 SuhaOctoberGaby. Keppra Oral. --11:01/27/20October, Gaby.AllergiesDilantin.Naproxsyn.Tylenol with codein. --11:01/27/20 KishaoctoberCatalino 2 Clinical Report - Nurses [facility] Emergency Department [address] [place] [address] Phone #: ext- [phone] 01/27/2020 11:08 Patient: NICK TRUJILLO Sex: M : 1990 Age: 29y PROBLEMS: Renal Colic. Asthma. Hematuria. Seizure. --11:01/27/20 Suha OctoberGbay. ADDITIONAL SURGERIES: Hernia Repair. Umbilical Hernia Repair. --11:01/27/20 Suha AlyshaGaby. History SOCIAL HX: Never smoker. No [...] Alysha Borden R.N. Interventions To treatment room. --11:14 01/27/20 Alysha Borden R.N.PHYSICAL MALIWVTQNR27:15 01/27/20. To room via stretcher.GENERAL / NEURO / PSYCH: Alert. Oriented X 4. Appears in no acute distress. Appears in pain.RESPIRATORY: Respirations not labored. Breath sounds within normal limits. 3 Clinical Report - Nurses [facility] Emergency Department [address] [place] [address] Phone #: ext- [phone] 01/27/2020 11:08 Patient: [...] for evaluation- ED physician and PA notified. --11:14 01/27/20october, R.N. 11:16 01/27/20. Call light placed in reach. --11:16 01/27/20 Phillip Drummond RN Checked patient name and birthdate. Blood samples drawn from the left antecubital space by tech. ([id number]). --11:52 01/27/20 Phillip Drummond RN 11:43 01/27/2020 Two (2) unsuccessful IV access attempts including the left forearm. --11:53 01/27/20 Phillip Drummond RN 11:56 01/27/2020 Site #1 started via IV in the right antecubital space with an 20g angiocath, with aseptic technique and good blood return; one attempt. Saline lock flushed with 10 mL saline. --11:56 01/27/20October, R.N. Patient transported to CT by wheelchair with air analysis technician. ([id number]). --12:01 01/27/20 Phillip Drummond RN Checked patient name and birthdate: patient confirmed. Clean catch urine collected; sample sent to lab for urinalys is. Specimen labeled in the presence of the patient ([id number]). Patient returned from CT by wheelchair with air analysis technician. ([id number]). --12:29 01/27/20 Phillip Drummond RN 11:40 01/27/20. [...] Patient verbalized understanding. Written instructions provided in Botswanan. The patient was discharged home and unaccompanied at time of discharge. He left ambulatory and via private vehicle. Driving (unknown). --13:30 01/27/20 Jennifer Russell R.N. 13:28 01/27/20. BP: 106/46. MAP: 66. HR: 83. RR: 20. O2 saturation: 96% on room air. Temp: 98.2 F 4 Clinical Report - Nurses [facility] [address] [place] [address] Phone #: ext- [phone] 01/27/2020 11:08 Patient: [...] rce(s) Supporting Document(s) ID Date Data Source [id number] 01/27/2020 11:08:00 AM EDT [facility] 1 Clinical Report - Physicians/Mid Levels [facility] Department [address] [place] [address] Phone #: ext- [phone] 01/27/2020 11:08 Patient: [...] Ellipta Inhalation, daily. 2 Clinical Report - Physicians/[facility] Emergency Department [address] [place] [address] Phone #: ext- [phone] 01/27/2020 11:08 Patient: NICK TRUJILLO Sex: M : 1990 Age: 29y Lisinopril-hydroCHLOROthiazide [...] EKG 3 Clinical Report - Physicians/Mid Levels [facility] Emergency Department [address] [place] [address] Phone #: ext- [phone] 01/27/2020 11:08 Patient: [...] mL/min 4 Clinical Report - Physicians/Mid Levels [facility] Department [address] [place] [address] Phone #: ext- [phone] 01/27/2020 11:08 Patient: NICK TRUJILLO Sex: M : 1990 Age: 29y Male GFR Interprentation 20-49 yrs >60 mL/min Tfklyl85-61 yrs >56 mL/min Normal 60-69 yrs >49 mL/min Normal 70- 79yrs>42 mL/min Normal 80 and above >35 mL/min Normal Female GFRInterpretation 20-39 yrs >60 mL/min Normal 40-49 yrs >58 mL/minNormal 50-59 yrs >51 mL/min Normal 60-69 yrs >45 mL/min Wwdvgk16-72 yrs >39 mL/min Normal 80 and above >32 mL/min NormalLactic Acid: (KAVITA: 01/27/2020 11:27) ( IagRcvd 01/27/2020 12:10) Final results Test Result Flag [...] CT ABD //T// PELVIS W/ IV ONLY [facility] [address] [place] [address] PHONE: [phone] FAX: [phone] Name .................. : GAVIOTA ROMERO Los Acct Number.................. : [id number] ROOM. ................. : TR-07 MR Number ................... : [id number] Stay type ............. : E/R Discharge Date......... ... : Admit Date ......... : 01/27/20 Admit Phys .................... : COONEYNORM Date of ....... : 1990 Family Phys ................... : MIR HARD Phone .................. : [phone] Age ................................ : 29 Film# .................. .:[id number] Sex ................................. : M Unsigned transcriptions are preliminary reports and do not represent a medical or legal document CT ABD Reason(s): Abdominal Pain 5 Clinical Report - Physicians/Mid Levels [facility] Emergency Department [address] [place] [address] Phone #: ext- [phone] 01/27/2020 11:08 Patient: [...] 370Method of administration: Intravenous [address] [place] [address]GDYWX: [phone] FAX: [phone] .................. : GAVIOTA [place] Acct Number.................. : [id number]. ................. : TR-07 MR Number ................... : [id number] type ............. : E/R Discharge Date......... ... :Admit Date ......... : 01/27/20 Admit Phys .................... : COONEYNORMDate of ....... : 1990 Family Phys ................... : HESTER HARDPhone .................. : [phone] Age ................................ : 29Film# .................. .:[id number] Sex ................................. : MUnsigned transcriptions are preliminary reports and do not represent a medical or legal document CT ABD Reason(s): Abdominal PainExamination dictated by CLYDE Gallego. Examination was reviewed with Cortez Rice MD, radiologist at the time of this dictation. Electronically Reviewed and Signed ByROSSANATGEENA SIGNDAJASMINA ARANDA 6 Clinical Report - Physicians/Mid Levels [facility] Department [address] [place] [address] Phone #: ext- [phone] 01/27/2020 11:08 Patient: NICK TRUJILLO Sex: M [...] MEDICATIONS: 7 Clinical Report - Physicians/Mid Levels [facility] [address] [place] [address] Phone #: ext- [phone] 01/27/2020 11:08 Patient: [...] rce(s) Supporting Document(s) ID Date Data Source [id number] 01/27/2020 01:49:00 [place] [address] PHONE: [phone] FAX: [phone] Name .................. : GAVIOTA Madison Acct Number.................. : [id number] ROOM. ................. : TR-07 MR Number ................... : [id number] Stay type ............. : E/R Discharge Date......... ... : Admit Date ......... : 09/16 Admit Phys .................... : COONEYNORM Date of ....... : 1990 Family Phys ................... : HESTER HARD Phone .................. : [phone] Age ................................ : 29 Film# .................. .:[id number] Sex ................................. : M Unsigned transcriptions are preliminary reports and do not represent a medical or legal document CT ABD & PELVIS W/ IV ONLY [id number] COMPLETE:01/27/20 12:41 [facility] [address] Reason(s): Abdominal Pain CT SCAN OF THE [...] of administration: Intravenous Page 1 of 2 [facility] [address] [place] [address] PHONE: [phone] FAX: [phone] Name .................. : GAVIOTA Madison Acct Number.................. : [id number] ROOM. ................. : TR-07 MR Number ................... : [id number] Stay type ............. : E/R Discharge Date......... ... : Admit Date ......... : 01/27/20 Admit Phys .................... : COONEYNORM Date of ....... : 1990 Family Phys ................... : HESTER HARD Phone .................. : [phone] Age ................................ : 29 Film# .................. .:[id number] Sex ................................. : M Unsigned transcriptions are preliminary reports and do not represent a medical or legal document CT ABD & PELVIS W/ IV ONLY [id number] COMPLETE:01/27/20 12:41 [facility] [address] Reason(s): Abdominal Pain Examination dictated by CLYDE Gallego. Examination was reviewed with Cortez Sinha MD, radiologist at the time of this dictation. Electronically Reviewed and Signed By CORTEZ SINHA MD , 01/27/20 13:49, [facility] Transcribe Initials: SSR, Transcribe Date: 01/27/20 12:55, Dictation Date: Copy for: 010 EMERGENCY SRV Copy for: EMERGENCY DEPT via modem Copy for: 710 MED REC Page 2 of 2 Name Value Range Interpretation Code Description Data Giovana rce(s) Supporting Document(s) ID Date Data Source [id number] 01/27/2020 12:10:00 PM EDT [facility] ([facility]) Name Value Range Interpretation Code Description Data Giovana rce(s) Supporting Document(s) Urinalysis Laboratory test result [facility] ([facility]) SOURCE: Clean Catch Source Laboratory test result [facility] ([facility]) SOURCE: Clean Catch Color Laboratory test result [facility] ([facility]) SOURCE: Clean Catch Spec Toney 1.005 1.001-1.030 [facility] ([facility]) SOURCE: Clean Catch Clarity Laboratory test result [facility] ([facility]) SOURCE: Clean Catch Bilirubin Laboratory test result [facility] ([facility]) SOURCE: Clean Catch Glucose Laboratory test result [facility] ([facility]) SOURCE: Clean Catch pH 6.5 5-9 [facility] ([facility]) SOURCE: Clean Catch Protein Laboratory test result [facility] ([facility]) SOURCE: Clean Catch Ketone Laboratory test result [facility] ([facility]) SOURCE: Clean Catch Blood Laboratory test result [facility] ([facility]) SOURCE: Clean Catch Nitrite Laboratory test result [facility] ([facility]) SOURCE: Clean Catch Microscopic Laboratory test result [facility] ([facility]) SOURCE: Clean Catch Leuk Est 25 [facility] ([facility]) SOURCE: Clean Catch Urobilinogen Laboratory test result [facility] ([facility]) SOURCE: Clean Catch WBC Laboratory test result [facility] ([facility]) SOURCE: Clean Catch Epithelial Laboratory test result [facility] ([facility]) SOURCE: Clean Catch ID Date Data Source [id number] 01/27/2020 12:53:00 PM EDT [facility] Name Value Range Interpretation Code Description Data Giovana rce(s) Supporting Document(s) [facility] URIN[facility] SOURCE R [facility] al COLOR yellow NORMAL: Yellow [facility] CLARITY clear NORMAL: Clear [facility] Specific gravity of Urine by Test strip 1.005 1.001 - 1.030 [facility] pH 6.5 5 - 9 [facility] al Glucose [Mass/volume] in Urine by Test strip NORM NORMAL: Negat [facility] Bilirubin.total [Presence] in Urine by Test strip NEG NORMAL: Negative [facility] Ketones [Presence] in Urine by Test strip NEG NORMAL: Negative [facility] Protein [Mass/volume] in Urine by Test strip NEG NORMAL: Negat [facility] Nitrite [Presence] in Urine by Test strip NEG NORMAL: Negative [facility] BLOOD NEG NORMAL: Negative [facility] Leukocyte esterase [Presence] in Urine by Test strip 25 MILAGROS L: Negative [facility] Urobilinogen [Mass/volume] in Urine by Test strip NOR less vanessa n 1.0 mg/dL [facility] MICROSCOPIC See Below [facility] ital WBC 0 - 1 NORMAL: NONE SEEN [facility] EPITHELIAL FEW NORMAL: NONE SEEN [facility] ID Date Data Source [id number] 01/27/2020 11:27:00 AM EDT [facility] ([facility]) Name Value Range Interpretation Code Description Data Giovana rce(s) Supporting Document(s) Lipase [Enzymatic activity/volume] in Serum or Plasma 29 U/L 13-6 0 [facility] ([facility]) ID Date Data Source [id number] 01/27/2020 11:27:00 AM EDT [facility] ([facility]) Name Value Range Interpretation Code Description Data Giovana rce(s) Supporting Document(s) Comprehensive [facility] Laboratory test result [facility] ([facility]) COMPREHENSIVE METABOLIC PANEL Sodium 138 meq/L 134-153 [facility] ([facility]) Chloride 102 meq/L 98-107 [facility] ([facility]) Potassium 3.8 meq/L 3.6-5.0 [facility] ([facility]) Co2 26 meq/L 22-30 [facility] ([facility]) Glucose 102 mg/dL 65-110 [facility] ([facility]) Creatinine 1.0 mg/dL 0.7-1.5 [facility] ([facility]) BUN 10 mg/dL 7-21 [facility] ([facility]) BUN/Creat 10 8-27 [facility] ([facility]) Albumin 4.4 g/dL 3.9-5.0 [facility] ([facility]) Globulin 3.0 GM/DL 2.4-3.2 [facility] ([facility]) Total Protein 7.4 g/dL 6.3-8.2 [facility] ([facility]) Calcium 9.3 mg/dL 8.4-10.2 [facility] ([facility]) Total Bili Laboratory test result 0.2-1.3 [place] [facility] ([facility]) A/G Ratio 1.5 0.8-2.0 [facility] ([facility]) Alkaline Phos 96 U/L 38-126 [facility] ([facility]) SGPT/Alt 27 U/L 7-56 [facility] ([facility]) Sgot/Ast 18 U/L 5-40 [facility] ([facility]) Anion Gap 10.0 mmol/L 8.0-16.0 [facility] ([facility]) Non-Aa GFR Laboratory test result [facility] ([facility]) Age 29 yrs [facility] ([facility]) Afr Amer GFR Laboratory test result [facility] ([facility]) Male GFR Interprentation 20-49 yrs >60 mL/min [...] >32 mL/min Normal ID Date Data Source [id number] 01/27/2020 11:27:00 AM EDT [facility] ([facility]) Name Value Range Interpretation Code Description Data Giovana rce(s) Supporting Document(s) CBC W/Automated Diff Laboratory test result [facility] ([facility]) COMPLETE BLOOD COUNT Hemoglobin 15.9 g/dL 14.0-16.0 [facility] ([facility]) RBC 5.61 10^6/uL 4.50-6.30 [facility] ([facility]) WBC 8.8 10^3/uL 4.2-11.0 [facility] ([facility]) Hematocrit 49.5 % 41.0-51.0 [facility] ([facility]) MCV 88.2 fL 80.0-94.0 [facility] ([facility]) MCH 28.3 pg 27.0-34.0 [facility] ([facility]) RDW 13.8 % 11.5-14.8 [facility] ([facility]) Platelets 197 10^3/uL 150-450 [facility] ([facility]) MPV 9.0 fL 7.4-10.4 [facility] ([facility]) MCHC 32.1 g/dL 31.0-36.0 [facility] ([facility]) Lymph 21.5 % 25.0-40.0 Below low normal [facility] ( [facility]) Maries 8.4 % 3.0-8.0 Above high normal [facility] ([facility]) Neut 66.9 % 37.0-80.0 [facility] ([facility]) Eos 2.7 % 0.0-7.0 [facility] ([facility]) Baso 0.2 % 0.0-2.0 [facility] ([facility]) %Ig 0.3 % 0.0-0.0 Above high normal [facility] ([facility]) #Lymph 1.90 10^3/uL 0.60-3.40 [facility] ([facility]) %NRBC 0.0 % 0.0-0.0 [facility] ([facility]) #Neut 5.91 10^3/uL 2.00-6.90 [facility] ([facility]) #Baso 0.02 10^3/uL 0.00-0.20 [facility] ([facility]) #Ig 0.03 10^3/uL 0.00-0.10 [facility] ([facility]) #Eos 0.24 10^3/uL 0.00-0.70 [facility] ([facility]) #Maries 0.74 10^3/uL 0.00-0.90 [facility] ([facility]) RBC Morph Laboratory test result [facility] ([facility]) #NRBC 0.00 10^3/uL 0.00-0.00 [facility] ([facility]) Manual Diff Laboratory test result M [facility] ([facility]) ID Date Data Source [id number] 01/27/2020 11:27:00 AM EDT [facility] ([facility]) Name Value Range Interpretation Code Description Data Giovana rce(s) Supporting Document(s) Lactate [Mass/volume] in Serum or Plasma 1.8 mmol/L 0.2-2.2 [facility] ([facility]) ID Date Data Source [id number] 01/27/2020 12:26:00 PM EDT [facility] Name Value Range Interpretation Code Description Data Giovana rce(s) Supporting Document(s) Lipase [Enzymatic activity/volume] in Serum or Plasma 29 U/L 13 - 60 [facility] ID Date Data Source [id number] 01/27/2020 12:26:00 PM EDT [facility] Name Value Range Interpretation Code Description Data Giovana rce(s) Supporting Document(s) COMPREHENSIVE METABOLIC PANEL [facility] COMPREHENSIVE METABOLIC PANEL Sodium [Moles/volume] in Serum or Plasma 138 mEq/L 134 - 153 [facility] Potassium [Moles/volume] in Serum or Plasma 3.8 mEq/L 3.6 - 5.0 [facility] Chloride [Moles/volume] in Serum or Plasma 102 mEq/L 98 - 107 [facility] Carbon dioxide, total [Moles/volume] in Serum or Plasma 26 MEQ/L 22 - 30 [facility] Glucose [Mass/volume] in Serum or Plasma 102 MG/DL 65 - 110 [facility] BUN 10 MG/DL 7 - 21 [facility] Creatinine [Mass/volume] in Serum or Plasma 1.0 MG/DL 0.7 - 1.5 [facility] BUN/CREAT 10 8 - 27 [facility] al Protein [Mass/volume] in Serum or Plasma 7.4 G/DL 6.3 - 8.2 [facility] Albumin [Mass/volume] in Serum or Plasma 4.4 G/DL 3.9 - 5.0 [facility] Globulin [Mass/volume] in Serum by calculation 3.0 GM/DL 2.4 - 3.2 [facility] A/G RATIO 1.5 0.8 - 2.0 [facility] Calcium [Mass/volume] in Serum or Plasma 9.3 MG/DL 8.4 - 10.2 [facility] Bilirubin.total [Mass/volume] in Serum or Plasma <0.7 MG/DL 0.2 - 1.3 [facility] Alkaline phosphatase [Enzymatic activity/volume] in Serum or Plasma 96 U/L 38 - 126 [facility] Aspartate aminotransferase [Enzymatic activity/volume] in Serum or Plasma 18 U/L 5 - 40 [facility] Alanine aminotransferase [Enzymatic activity/volume] in Seru m or Plasma 27 U/L 7 - 56 [facility] Anion gap 3 in Serum or Plasma 10.0 mmol/L 8.0 - 16.0 [facility] AGE 29 yrs [facility] NON-AA GFR >60 mL/min [facility] AFR AMER GFR >60 mL/min [facility] Male GFR In terprentation [...] >32 mL/min Normal ID Date Data Source [id number] 01/27/2020 12:13:00 PM EDT [facility] Name Value Range Interpretation Code Description Data Giovana rce(s) Supporting Document(s) CBC W/AUTOMATED DIFF [facility] COMPLETE BLOOD COUNT Leukocytes [#/volume] in Blood by Automated count 8.8 10^3/uL 4.2 - 1 1.0 [facility] Erythrocytes [#/volume] in Blood by Automated count 5.61 10^6/uL 4. 50 - 6.30 [facility] Hemoglobin [Mass/volume] in Blood 15.9 g/dL 14.0 - 16.0 [facility] Hematocrit [Volume Fraction] of Blood by Automated count 49.5 % 4 1.0 - 51.0 [facility] Erythrocyte mean corpuscular volume [Entitic volume] by Auto mated count 88.2 fL 80.0 - 94.0 [facility] Erythrocyte mean corpuscular hemoglobin [Entitic mass] by Automated count 28.3 pg 27.0 - 34.0 [facility] Erythrocyte mean corpuscular hemoglobin concentration [Mass/volume] by Automated count 32.1 g/dL 31.0 - 36.0 [facility] Erythrocyte distribution width [Ratio] by Automated count 13.8 % 11.5 - 14.8 [facility] Platelets [#/volume] in Blood by Automated count 197 10^3/uL 150 - 45 0 [facility] Platelet mean volume [Entitic volume] in Blood by Automated count 9.0 fL 7.4 - 10.4 [facility] Neutrophils/100 leukocytes in Blood by Automated count 66.9 % 37. 0 - 80.0 [facility] Lymphocytes/100 leukocytes in Blood by Manual count 21.5 % 25.0 - 40.0 L [facility] Monocytes/100 leukocytes in Blood by Automated count 8.4 % 3.0 - 8.0 H [facility] Eosinophils/100 leukocytes in Blood by Automated count 2.7 % 0.0 - 7.0 [facility] Basophils/100 leukocytes in Blood by Automated count 0.2 % 0.0 - 2.0 [facility] %IG 0.3 % 0.0 - 0.0 H [facility] al %NRBC 0.0 % 0.0 - 0.0 [facility] al Neutrophils [#/volume] in Blood by Automated count 5.91 10^3/uL 2.00 - 6.90 [facility] Lymphocytes [#/volume] in Blood by Automated count 1.90 10^3/uL 0.60 - 3.40 [facility] Monocytes [#/volume] in Blood by Automated count 0.74 10^3/uL 0.00 - 0.90 [facility] Eosinophils [#/volume] in Blood by Automated count 0.24 10^3/uL 0.00 - 0.70 [facility] Basophils [#/volume] in Blood by Automated count 0.02 10^3/uL 0.00 - 0.20 [facility] #IG 0.03 10^3/uL 0.00 - 0.10 [facility] ospital #NRBC 0.00 10^3/uL 0.00 - 0.00 [facility] ospital MANUAL DIFF NOT INDICATED [facility] RBC MORPH NOT INDICATED [facility] spital ID Date Data Source [id number] 01/27/2020 12:10:00 PM EDT [facility] Name Value Range Interpretation Code Description Data Giovana rce(s) Supporting Document(s) Lactate [Moles/volume] in Serum or Plasma 1.8 MMOL/L 0.2 - 2.2 [facility] ID Date Data Source [id number] 01/17/2020 02:07:00 PM EDT [facility] [address] [place] [address] PHONE: [phone] FAX: [phone] Name .................. : GAVIOTA Madison Acct Number.................. : [id number] ROOM. ................. : MR Number ................... : [id number] Stay type ............. : O/P Discharge Date......... ... : 01/17/20 Admit Date ......... : 01/17/20 Admit Phys .................... : [employer] Date of ....... : 1990 Family Phys ................... : Ram Power HARD Phone .................. : [phone] Age ................................ : 29 Film# .................. .:[id number] Sex ................................. : M Unsigned transcriptions are preliminary reports and do not represent a medical or legal document [place]RON La/[place] CX[place] [id number] COMPLETE:01/17/20 10:15 BEM [id number] (REASON FOR CHEST: CHEST PAIN LEFT RIB [...] Date: 01/17/20 11:35, Dictation Date: Copy for: [address] [place] [address] REC Page 1 of 1 Name Value Range Interpretation Code Description Data Giovana rce(s) Supporting Document(s) ID Date Data Source [id number] 01/17/2020 01:27:00 PM EDT [facility] [address] [place] [address] PHONE: [phone] FAX: [phone] Name .................. : GAVIOTA Madison Acct Number.................. : [id number] ROOM. ................. : TR-02 MR Number ................... : [id number] Stay type ............. : E/R Discharge Date......... ... : 01/13/20 Admit Date ......... : 01/13/20 Admit Phys .................... : COONEYNORM Date of ....... : 1990 Family Phys ................... : MIR HARD Phone .................. : [phone] Age ................................ : 29 Film# .................. .:[id number] Sex ................................. : M Unsigned transcriptions are preliminary reports and do not represent a medical or legal document CT HEAD W/O CONTRAST [id number] COMPLETE:01/13/20 17:10 ALVAREZ [id number] Reason(s): Headache CT OF THE HEAD WITHOUT [...] Dictation Date: Copy for: EMERGENCY DEPT [facility] Copy for: 710 MED REC DISCHARGED Page 1 of 1 Name Value Range Interpretation Code Description Data Giovana rce(s) Supporting Document(s) ID Date Data Source [id number] 01/17/2020 01:26:00 PM EDT [facility] [address] [place] [address] PHONE: [phone] FAX: [phone] Name .................. : GAVIOTA Madison Acct Number.................. : [id number] ROOM. ................. : TR-02 Number ................... : [id number] Stay type ............. : E/R Discharge Date......... ... : 01/13/20 Admit Date ......... : 01/13/20 Admit Phys .................... : COONEYNORM Date of ....... : 1990 Family Phys ................... : Ram Power HARD Phone .................. : [phone] Age ................................ : 29 Film# .................. .:[id number] Sex ................................. : M Unsigned transcriptions are preliminary reports and do not represent a medical or legal document CHEST PORTABLE [id number] COMPLETE:01/13/20 14:18 ARS [id number] Reason(s): Shortness of Breath PORTABLE CHEST X-RAY: [...] Dictation Date: Copy for: EMERGENCY DEPT via [facility] Copy for: 710 MED REC DISCHARGED Page 1 of 1 Name Value Range Interpretation Code Description Data Giovana rce(s) Supporting Document(s) ID Date Data Source [id number] 01/13/2020 01:42:00 PM EDT [facility] 1 OrderSheet [facility] Emergency Department [address] [place] [address] Phone #: ext- [phone] 01/13/2020 13:41 Patient: NICK TRUJILLO Sex: M : 1990 Age: 29yWEIGHT:177.8 kg HEIGHT:71 inches BMI:54.7ALLERGIES: Dilantin, Naproxsyn, Tylenol with codeinCHIEF COMPLAINT: seizureDIAGNOSIS: SeizureLAB ORDERSOrder Description Priority Entered Acknowledged InitialedCBC w Diff STAT 13:56 01/13/2020 14:01 Mini Mcfarland Norma MD; Lacho Zaragoza.NShayCMP STAT 13:56 01/13/2020 14:01 Mini Mcfarland Norma MD; Lacho Zaragoza.NShayLipase STAT 13:56 01/13/2020 14:01 Mini Mcfarland Norma MD; Lacho BaeLactic Acid STAT 13:56 01/13/2020 14:01 Mini Mcfarland Norma MD; Lacho MartinezNShayUrinalysis (Clean STAT 13:56 01/13/2020 14:01 Bruna,Catch) Milagros Morse MD; Lacho R.NShay-- (topamax level) STAT 14:38 01/13/2020 14:39 Bruna,(Blood) Milagros Morse MD; Lacho Zaragoza.NShayDIAGNOSTIC STUDY ORDERSOrder Description Priority Entered Acknowledged InitialedChest Portable 1 STAT 13:56 01/13/2020 14:01 Bruna,View Milagros Morse MD; Lacho MartinezNShay(Oxygen?(No)) NOTES: s/p seizure. r/o aspiration Reason for Study: Shortness of BreathCT Head W/O Cont STAT 15:46 01/13/2020 15:47 Bruna,(Oxygen?(No)) Milagros Morse MD; Lacho Bae NOTES: seizure Reason for Study: HeadacheMEDICATION/IV/DRIP/FLUID ORDERSOrder Description Priority Entered Acknowledged InitialedGENERAL ORDERSOrder Description Priority Entered Acknowledged Initialed 2 OrderSheet [facility] Emergency Department [address] [place] [address] Phone #: ext- [phone] 01/13/2020 13:41 Patient: NICK TRUJILLO Sex: M : 1990 Age: 29y[Electronically signed by Lacho Mcfarland R.N. (20:08 01/13/2020)][Electronically signed by Milagros Morse MD (22:42 01/15/2020)][Electronically locked by Lacho Mcfarland R.N. (20:08 01/13/2020)] Name Value Range Interpretation Code Description Data Giovana rce(s) Supporting Document(s) ID Date Data Source [id number] 01/13/2020 01:42:00 PM EDT [facility] 1 Medication Reconciliation Report [facility] Emergency Department [address] [place] [address] Phone #: ext- [phone] 01/13/2020 13:41 Patient: [...] ODT Oral, prn 2 Medication Reconciliation Report [facility] Emergency Department [address] [place] [address] Phone #: ext- [phone] 01/13/2020 13:41 Patient: NICK TRUJILLO Sex: M : 1990 Age: 29yThe source(s) of the original Home Medication information:Not obtained.The following Medications were given to the patient in the Emergency Department:None.The following Medications were prescribed to the patient:None. Name Value Range Interpretation Code Description Data Giovana rce(s) Supporting Document(s) ID Date Data Source [id number] 01/13/2020 01:42:00 PM EDT [facility] 1 Medication Administration Record [facility] Emergency Department [address] [place] [address] Phone #: ext- [phone] 01/13/2020 13:41 Patient: NICK TRUJILLO Sex: M : 1990 Age: 29yWeight: 177.8 kgHeight/Length: 71 inBMI: 54.7ALLERGIES: Dilantin, Naproxsyn, Tylenol with codeinDate/Time Medication Administered Medication Ordered Name Value Range Interpretation Code Description Data Giovana rce(s) Supporting Document(s) ID Date Data Source [id number] 01/13/2020 01:42:00 PM EDT [facility] 1 General Instructions [facility] Emergency Department [address] [place] [address] Phone #: ext- [phone] 01/13/2020 13:41 Patient: [...] instructions verbalized by patient. 2 General Instructions [facility] Emergency Department [address] [place] [address] Phone #: ext- [phone] 01/13/2020 13:41 Patient: NICK TRUJILLO Sex: M : 1990 Age: 29yNo driving or operating machinery.(Electronically signed by Milagros Morse MD 01/15/2020 22:42) Name Value Range Interpretation Code Description Data Giovana rce(s) Supporting Document(s) ID Date Data Source [id number] 01/13/2020 01:42:00 PM EDT [facility] 1 Clinical Report - Nurses [facility] Emergency Department [address] [place] [address] Phone #: ext- [phone] 01/13/2020 13:41 Patient: NICK TRJUILLO Sex: M : 1990 Age: 29yTRIAGEArrived by EMS. Historian: patient. ( pt had witnessed seizure by home health nurse.).Triage time: 13:42 01/13/2020. Acuity: LEVEL 3.Chief Complaint: SEIZURE.Alert.This occurred just prior to arrival. Patient was witnessed to be last known well. --13:52 01/13/20Enedina Banda R.N.13:42 01/13/20. BP: 119/92. HR: 103. RR: 18. O2 saturation: 98%. Temp: 97.6 F. Pain level now 02/03.--13:52 01/13/20 Enedina Banda R.N.Weight: 177.8 kg. Height/Length: [...] (Nebulization Solution 20 mcg/2mL), q4h. --13:47 01/13/20 Enedina Banda R.N. Zofran ODT Oral, as needed. [...] Banda R.N.PROBLEMS:Hematuria.Asthma. 2 Clinical Report - Nurses [facility] Emergency Department [address] [place] [address] Phone #: ext- [phone] 01/13/2020 13:41 Patient: NICK TRUJILLO Sex: M : 1990 Age: 29y Renal Colic. Seziures. --14:01/13/20 Lacho Mcfarland R.N. ADDITIONAL SURGERIES: Hernia Repair. --14:01/13/20 Lacho Mcfarland R.N. History PAST MEDICAL HX: [...] treatment room. --13:52 01/13/20 Enedina Banda R.N.PHYSICAL QEOILQJYWV52:02 01/13/20. To room via stretcher.GENERAL / NEURO / PSYCH: Alert. Oriented X 4. Appears in no acute distress. No apparent seizureactivity. Speech within normal limits. Patient appears well-nourished. 3 Clinical Report - Nurses [facility] Emergency Department [address] [place] [address] Phone #: ext- [phone] 01/13/2020 13:41 Patient: NICK TRUJILLO Sex: M [...] space. Applied bandage. --14:08 01/13/20 Lacho Mcfarland RShayNShay Reassurance given. Reassessment acuity: LEVEL 3. Seizure [...] Mcfarland R.NShay 16:22 01/13/20. Patient transported to [place] by wheelchair with air analysis technician. --16:22 01/13/20 Lacho Mcfarland R.N. 16:30 01/13/20. Patient returned from CT by stretcher with air analysis technician. --16:30 01/13/20 Lacho Mcfarland R.N. 17:01 [...] or numbness. 4 Clinical Report - Nurses [facility] Emergency Department [address] [place] [address] Phone #: ext- [phone] 01/13/2020 13:41 Patient: NICK TRUJILLO Sex: M [...] Patient verbalized understanding. Written instructions provided in Botswanan. The patient was discharged by the physician. [...] rce(s) Supporting Document(s) ID Date Data Source [id number] 01/13/2020 01:42:00 PM EDT [facility] 1 Clinical Report - Physicians/Mid Levels [facility] Emergency Department [address] [place] [address] Phone #: ext- [phone] 01/13/2020 13:41 Patient: [...] daily. 2 Clinical Report - Physicians/Mid Levels [facility] Emergency Department [address] [place] [address] Phone #: ext- [phone] 01/13/2020 13:41 Patient: [...] RR: 18. O2 saturation: 98%. Temp: 97.6 FShay Landeroszana reviewed and appear to be correct. Hypertensive. [...] Progress 3 Clinical Report - Physicians/Mid Levels [facility] Emergency Department [address] [place] [address] Phone #: ext- [phone] 01/13/2020 13:41 Patient: NICK TRUJILLO Sex: M : 1990 Age: 29yCT HEAD W/O CONTRASTReason(s): HeadacheTRANSPORTATION: S IV? O2? Oxygen?(No) Room: ED CMTS: seizureCBC w Diff: (KAVITA: 01/13/2020 14:13) ( MsgRcvd [...] 56) 4 Clinical Report - Physicians/Mid Levels [facility] Emergency Department [address] [place] [address] Phone #: ext- [phone] 01/13/2020 13:41 [id number] Sex: M : 1990 Age: 29y ANION [...] mL/min Normal Lipase: (KAVITA: 01/13/2020 14:13) ( [facility] 01/13/2020 14:43) Final results Test Result Flag Units (Reference) LIPASE 32 U/L (13 - 60) Lactic Acid: (KAVITA: 01/13/2020 14:13) ( [facility] 01/13/2020 14:35) Final results Test Result Flag Units (Reference) LACTIC ACID 1.9 MMOL/L (0.2 - 2.2) Urinalysis: (KAVITA: 01/13/2020 13:56) ( [facility] 01/13/2020 14:06) Final results Test Result Flag [...] Portable 1 View: (KAVITA: 01/13/2020 13:56) ( [facility] 01/13/2020 14:19) In Progress CHEST PORTABLE Reason(s): [...] any 5 Clinical Report - Physicians/Mid Levels [facility] Emergency Department [address] [place] [address] Phone #: ext- [phone] 01/13/2020 13:41 Patient: [...] patient. 6 Clinical Report - Physicians/Mid Levels [facility] Emergency Department [address] [place] [address] Phone #: fnf- [phone] 01/13/2020 13:41 Patient: NICK TRUJILLO Sex: M : 1990 Age: 29y(Electronically signed by Milagros Morse MD 01/15/2020 22:42) Name Value Range Interpretation Code Description Data Giovana rce(s) Supporting Document(s) ID Date Data Source [id number] 12/31/2019 01:56:00 [place] [address] OPERATIVE SUMMARYNAME: GAVIOTA Madison DATE OF : 1990ATTENDING PHYS: SALVADOR KAMARA MD DATE: 12/31/19 MR#: [id number] [id number] PROCEDURE: 12/31/2019PRE-OPERATIVE DIAGNOSIS:Microscopic hematuria.POST-OPERATIVE DIAGNOSIS:Microscopic hematuria.PROCEDURE PERFORMED:Flexible cy stoscopy.ATTENDING SURGEON: Dr. Salvador Kamara.PHYSICIAN [employer] TRAVEL COUNSELOR: CLYDE Farias.ANESTHESIA: Local.ESTIMATED BLOOD LOSS: Minimal.COMPLICATIONS: None.DRAINS: [...] urethra. No dense or long strictures [address] [place] [address] OPERATIVE SUMMARYNAME: GAVIOTA Madison DATE OF : 1990ATTENDING PHYS: SALVADOR KAMARA MD DATE: 12/31/19 MR#: [id number] noted. The rest of the cystoscopy was [...] rce(s) Supporting Document(s) ID Date Data Source [id number] 01/13/2020 02:58:00 PM EDT [facility] ([facility]) Name Value Range Interpretation Code Description Data Giovana rce(s) Supporting Document(s) Topiramate [Mass/volume] in Serum or Plasma 8.7 ug/mL 2.0-25.0 [facility]) This test was developed and its performa nce characteristics determined by [facility]. It has not been cleared or approved by the Food and Drug Administration. Detection Limit = 1.0 ID Date Data Source [id number] 01/17/2020 08:03:00 PM EDT [facility] Name Value Range Interpretation Code Description Data Giovana rce(s) Supporting Document(s) Topiramate [Mass/volume] in Serum or Plasma 8.7 ug/mL 2.0-25.0 [facility] This test was developed and its performa nce characteristicsdetermined by [facility]. It has not been cleared or approvedby the Food and Drug Administration. Detection Limit = 1.0 ID Date Data Source [id number] 01/13/2020 02:13:00 PM EDT [facility] [facility]) Name Value Range Interpretation Code Description Data Giovana rce(s) Supporting Document(s) CBC W/Automated Diff Laboratory test result [facility] ([facility]) COMPLETE BLOOD COUNT WBC 8.6 10^3/uL 4.2-11.0 [facility] ([facility]) RBC 5.69 10^6/uL 4.50-6.30 [facility] ([facility]) Hemoglobin 16.2 g/dL 14.0-16.0 Above high normal [facility] ([facility]) Hematocrit 50.7 % 41.0-51.0 [facility] ([facility]) MCH 28.5 pg 27.0-34.0 [facility] ([facility]) MCV 89.1 fL 80.0-94.0 [facility] ([facility]) RDW 13.7 % 11.5-14.8 [facility] ([facility]) MCHC 32.0 g/dL 31.0-36.0 [facility] ([facility]) Platelets 212 10^3/uL 150-450 [facility] ([facility]) MPV 9.0 fL 7.4-10.4 [facility] ([facility]) Neut 68.4 % 37.0-80.0 [facility] ([facility]) Lymph 20.7 % 25.0-40.0 Below low normal [facility] ( [facility]) Maries 7.7 % 3.0-8.0 [facility] ([facility]) Baso 0.1 % 0.0-2.0 [facility] ([facility]) Eos 2.9 % 0.0-7.0 [facility] ([facility]) %Ig 0.2 % 0.0-0.0 Above high normal [facility] ([facility]) #Neut 5.84 10^3/uL 2.00-6.90 [facility] ([facility]) %NRBC 0.0 % 0.0-0.0 [facility] ([facility]) #Lymph 1.77 10^3/uL 0.60-3.40 [facility] ([facility]) #Baso 0.01 10^3/uL 0.00-0.20 [facility] ([facility]) #Maries 0.66 10^3/uL 0.00-0.90 [facility] ([facility]) #Eos 0.25 10^3/uL 0.00-0.70 [facility] ([facility]) #Ig 0.02 10^3/uL 0.00-0.10 [facility] ([facility]) RBC Morph Laboratory test result [facility] ([facility]) #NRBC 0.00 10^3/uL 0.00-0.00 [facility] ([facility]) Manual Diff Laboratory test result [facility] ([facility]) ID Date Data Source [id number] 01/13/2020 02:13:00 PM EDT [facility] ([facility]) Name Value Range Interpretation Code Description Data Giovana rce(s) Supporting Document(s) Lipase [Enzymatic activity/volume] in Serum or Plasma 32 U/L 13-6 0 [facility] ([facility]) Lactate [Mass/volume] in Serum or Plasma 1.9 mmol/L 0.2-2.2 [facility] ([facility]) ID Date Data Source [id number] 01/13/2020 02:13:00 PM EDT [facility] ([facility]) Name Value Range Interpretation Code Description Data Giovana rce(s) Supporting Document(s) Comprehensive Metabo Laboratory test result [facility] ([facility]) COMPREHENSIVE METABOLIC PANEL Sodium 143 meq/L 134-153 [facility] ([facility]) Co2 24 meq/L 22-30 [facility] ([facility]) Chloride 108 meq/L 98-107 Above high normal [facility] ([facility]) Potassium 4.0 meq/L 3.6-5.0 [facility] ([facility]) Creatinine 0.9 mg/dL 0.7-1.5 [facility] ([facility]) BUN 12 mg/dL 7-21 [facility] ([facility]) Glucose 141 mg/dL 65-110 Above high normal [facility] ([facility]) Total Protein 7.6 g/dL 6.3-8.2 [facility] ([facility]) Albumin 4.4 g/dL 3.9-5.0 [facility] ([facility]) BUN/Creat 13 8-27 [facility] ([facility]) Globulin 3.2 GM/DL 2.4-3.2 [facility] ([facility]) Calcium 9.1 mg/dL 8.4-10.2 [facility] ([facility]) A/G Ratio 1.4 0.8-2.0 [facility] ([facility]) Total Bili Laboratory test result 0.2-1.3 [facility] ([facility]) Alkaline Phos 96 U/L 38-126 [facility] ([facility]) Sgot/Ast 20 U/L 5-40 [facility] ([facility]) Age 29 yrs [facility] ([facility]) Anion Gap 11.0 mmol/L 8.0-16.0 [facility] ([facility]) SGPT/Alt 29 U/L 7-56 [facility] ([facility]) Non-Aa GFR Laboratory test result [facility] ([facility]) Afr Amer GFR Laboratory test result [facility] ([facility]) Male GFR Interprentation 20-49 yrs >60 mL/min [...] >32 mL/min Normal ID Date Data Source [id number] 01/13/2020 02:56:00 PM EDT [facility] Name Value Range Interpretation Code Description Data Giovana rce(s) Supporting Document(s) COMPREHENSIVE METABOLIC PANEL [facility] COMPREHENSIVE METABOLIC PANEL Sodium [Moles/volume] in Serum or Plasma 143 mEq/L 134 - 153 [facility] Potassium [Moles/volume] in Serum or Plasma 4.0 mEq/L 3.6 - 5.0 [facility] Chloride [Moles/volume] in Serum or Plasma 108 mEq/L 98 - 107 H [facility] Carbon dioxide, total [Moles/volume] in Serum or Plasma 24 MEQ/L 22 - 30 [facility] Glucose [Mass/volume] in Serum or Plasma 141 MG/DL 65 - 110 H [facility] BUN 12 MG/DL 7 - 21 [facility] Creatinine [Mass/volume] in Serum or Plasma 0.9 MG/DL 0.7 - 1.5 [facility] BUN/CREAT 13 8 - 27 [facility] Protein [Mass/volume] in Serum or Plasma 7.6 G/DL 6.3 - 8.2 [facility] Albumin [Mass/volume] in Serum or Plasma 4.4 G/DL 3.9 - 5.0 [facility] Globulin [Mass/volume] in Serum by calculation 3.2 GM/DL 2.4 - 3.2 [facility] A/G RATIO 1.4 0.8 - 2.0 [facility] Calcium [Mass/volume] in Serum or Plasma 9.1 MG/DL 8.4 - 10.2 [facility] Bilirubin.total [Mass/volume] in Serum or Plasma <0.7 MG/DL 0.2 - 1.3 [facility] Alkaline phosphatase [Enzymatic activity/volume] in Serum or Plasma 96 U/L 38 - 126 [facility] Aspartate aminotransferase [Enzymatic activity/volume] in Serum or Plasma 20 U/L 5 - 40 [facility] Alanine aminotransferase [Enzymatic activity/volume] in Seru m or Plasma 29 U/L 7 - 56 [facility] Anion gap 3 in Serum or Plasma 11.0 mmol/L 8.0 - 16.0 [facility] AGE 29 yrs [facility] al NON-AA GFR >60 mL/min [facility] ital AFR AMER GFR >60 mL/min [facility] Ho spital Male GFR In terprentation [...] >32 mL/min Normal ID Date Data Source [id number] 01/13/2020 02:43:00 PM EDT [facility] Name Value Range Interpretation Code Description Data Giovana rce(s) Supporting Document(s) Lipase [Enzymatic activity/volume] in Serum or Plasma 32 U/L 13 - 60 [facility] ID Date Data Source [id number] 01/13/2020 02:35:00 PM EDT [facility] Name Value Range Interpretation Code Description Data Giovana rce(s) Supporting Document(s) Lactate [Moles/volume] in Serum or Plasma 1.9 MMOL/L 0.2 - 2.2 [facility] ID Date Data Source [id number] 01/13/2020 02:27:00 PM EDT [facility] Name Value Range Interpretation Code Description Data Giovana rce(s) Supporting Document(s) CBC W/AUTOMATED DIFF [facility] COMPLETE BLOOD COUNT Leukocytes [#/volume] in Blood by Automated count 8.6 10^3/uL 4.2 - 1 1.0 [facility] Erythrocytes [#/volume] in Blood by Automated count 5.69 10^6/uL 4. 50 - 6.30 [facility] Hemoglobin [Mass/volume] in Blood 16.2 g/dL 14.0 - 16.0 H [facility] Hematocrit [Volume Fraction] of Blood by Automated count 50.7 % 4 1.0 - 51.0 [facility] Erythrocyte mean corpuscular volume [Entitic volume] by Auto mated count 89.1 fL 80.0 - 94.0 [facility] Erythrocyte mean corpuscular hemoglobin [Entitic mass] by Automated count 28.5 pg 27.0 - 34.0 [facility] Erythrocyte mean corpuscular hemoglobin concentration [Mass/volume] by Automated count 32.0 g/dL 31.0 - 36.0 [facility] Erythrocyte distribution width [Ratio] by Automated count 13.7 % 11.5 - 14.8 [facility] Platelets [#/volume] in Blood by Automated count 212 10^3/uL 150 - 45 0 [facility] Platelet mean volume [Entitic volume] in Blood by Automated count 9.0 fL 7.4 - 10.4 [facility] Neutrophils/100 leukocytes in Blood by Automated count 68.4 % 37. 0 - 80.0 [facility] Lymphocytes/100 leukocytes in Blood by Manual count 20.7 % 25.0 - 40.0 L [facility] Monocytes/100 leukocytes in Blood by Automated count 7.7 % 3.0 - 8.0 [facility] Eosinophils/100 leukocytes in Blood by Automated count 2.9 % 0.0 - 7.0 [facility] Basophils/100 leukocytes in Blood by Automated count 0.1 % 0.0 - 2.0 [facility] %IG 0.2 % 0.0 - [facility].0 [facility] 0.0 % 0.0 - 0.0 [facility] al Neutrophils [#/volume] in Blood by Automated count 5.84 10^3/uL 2.00 - 6.90 [facility] Lymphocytes [#/volume] in Blood by Automated count 1.77 10^3/uL 0.60 - 3.40 [facility] Monocytes [#/volume] in Blood by Automated count 0.66 10^3/uL 0.00 - 0.90 [facility] Eosinophils [#/volume] in Blood by Automated count 0.25 10^3/uL 0.00 - 0.70 [facility] Basophils [#/volume] in Blood by Automated count 0.01 10^3/uL 0.00 - 0.20 [facility] #IG 0.02 10^3/uL 0.00 - 0.10 [facility] ospital #NRBC 0.00 10^3/uL 0.00 - 0.00 [facility] H ospital MANUAL DIFF NOT INDICATED [facility] RBC MORPH NOT INDICATED [facility] ID Date Data Source [id number] 01/13/2020 01:56:00 PM EDT [facility] ([facility]) Name Value Range Interpretation Code Description Data Giovana rce(s) Supporting Document(s) Urinalysis Laboratory test result [facility] ([facility]) URINALYSIS Source Laboratory test result [facility] ([facility]) SOURCE: Clean Catch Color Laboratory test result [facility] ([facility]) SOURCE: Clean Catch Clarity Laboratory test result [facility] ([facility]) SOURCE: Clean Catch Spec Toney 1.005 1.001-1.030 [facility] ([facility]) SOURCE: Clean Catch pH 8 5-9 [facility] ([facility]) SOURCE: Clean Catch Bilirubin Laboratory test result [facility] ([facility]) SOURCE: Clean Catch Glucose Laboratory test result [facility] ([facility]) SOURCE: Clean Catch Ketone Laboratory test result [facility] ([facility]) SOURCE: Clean Catch Protein Laboratory test result [facility] ([facility]) SOURCE: Clean Catch Blood Laboratory test result [facility] ([facility]) SOURCE: Clean Catch Nitrite Laboratory test result [facility] ([facility]) SOURCE: Clean Catch Leuk Est Laboratory test result [facility] ([facility]) SOURCE: Clean Catch Urobilinogen Laboratory test result [facility] ([facility]) SOURCE: Clean Catch Microscopic Laboratory test result [facility] ([facility]) SOURCE: Clean Catch ID Date Data Source [id number] 01/13/2020 02:06:00 PM EDT [facility] Name Value Range Interpretation Code Description Data Giovana rce(s) Supporting Document(s) URINALYSIS [facility] Hospi giovanna URINALYSIS SOURCE R [facility] al COLOR yellow NORMAL: Yellow [facility] CLARITY clear NORMAL: Clear [facility] Specific gravity of Urine by Test strip 1.005 1.001 - 1.030 [facility] pH 8 5 - 9 [facility] Glucose [Mass/volume] in Urine by Test strip NORM NORMAL: Negat rebekah [facility] Bilirubin.total [Presence] in Urine by Test strip NEG NORMAL: Negative [facility] Ketones [Presence] in Urine by Test strip NEG NORMAL: Negative [facility] Protein [Mass/volume] in Urine by Test strip NEG NORMAL: Negat rebekah [facility] Nitrite [Presence] in Urine by Test strip NEG NORMAL: Negative [facility] BLOOD NEG NORMAL: Negative [facility] Leukocyte esterase [Presence] in Urine by Test strip NEG MILAGROS L: Negative [facility] Urobilinogen [Mass/volume] in Urine by Test strip NOR less vanessa n 1.0 mg/dL [facility] MICROSCOPIC Not Indicate [facility] H ospital ID Date Data Source [id number] 01/12/2020 01:25:00 PM EDT [facility] ([facility]) Name Value Range Interpretation Code Description Data Giovana rce(s) Supporting Document(s) Ribs Unilat W/PA CXR LT Laboratory test result [facility] ([facility]) ID Date Data Source [id number] 12/28/2019 09:15:00 AM EDT [facility] ([facility]) Name Value Range Interpretation Code Description Data Giovana rce(s) Supporting Document(s) Coronavirus Covid-19 Laboratory test result [facility] ([facility]) This test was developed and its performa nce characteristics determined by [facility]. This test has not been FDA cleared [...] in this assay. ID Date Data Source [id number] 12/28/2019 09:15:00 AM EDT [facility] Name Value Range Interpretation Code Description Data Giovana rce(s) Supporting Document(s) SARS CORONAVIRUS 2 RNA [facility] This lab was ordered by [facility] Haider huerta and reported by [facility]. ID Date Data Source [id number] 12/30/2019 06:32:00 AM EDT [facility] Name Value Range Interpretation Code Description Data Giovana rce(s) Supporting Document(s) SARS-CoV-2, TYRON Not Detected Not Detected [facility] This test was developed and its performa nce characteristics determinedby [facility]. This test has not been FDA [...] in this assay. ID Date Data Source [id number] 11/22/2019 09:49:00 AM EDT [facility] [address] [place] [address] PHONE: [phone] FAX: [phone] Name .................. : GAVIOTA Madison Acct Number.................. : [id number] ROOM. ................. : MR Number ................... : [id number] Stay type ............. : O/P Discharge Date......... ... : 11/19/19 Admit Date ......... : 11/19/19 Admit Phys .................... : HESTER HARD Date of ....... : 1990 Family Phys ................... : HESTER HARD Phone .................. : [phone] Age ................................ : 29 Film# .................. .:[id number] Sex ................................. : M Unsigned transcriptions are preliminary reports and do not represent a medical or legal document SPINE LS COMPLETE [id number] COMPLETE:11/19/19 10:39 92109 (SPINE PROC REASON: PAIN LUMBAR SPINE X-RAY: [...] Date: 11/19/19 15:31, Dictation Date: Copy for: [facility] REC Page 1 of 1 Name Value Range Interpretation Code Description Data Giovana rce(s) Supporting Document(s) ID Date Data Source [id number] 11/22/2019 09:49:00 AM EDT [facility] [address] [place] [address] PHONE: [phone] FAX: [phone] Name .................. : GAVIOTA Madison Acct Number.................. : [id number] ROOM. ................. : MR Number ................... : [id number] Stay type ............. : O/P Discharge Date......... ... : 11/19/19 Admit Date ......... : 11/19/19 Admit Phys .................... : HESTER HARD Date of ....... : 1990 Family Phys ................... : Ram Power HARD Phone .................. : [phone] Age ................................ : 29 Film# .................. .:[id number] Sex ................................. : M Unsigned transcriptions are preliminary reports and do not represent a medical or legal document SPINE THORACIC [id number] COMPLETE:11/19/19 10:39 52600 (SPINE PROC REASON: PAIN THORACIC SPINE SERIES: [...] rce(s) Supporting Document(s) ID Date Data Source [id number] 11/18/2019 03:15:00 PM EDT [facility] ([facility]) Name Value Range Interpretation Code Description Data Giovana rce(s) Supporting Document(s) Source Laboratory test result [facility] ([facility]) Is patient fasting? N {SOURCE: Random Void~NURSE COLLECTED? N Is patient fasting? N Urinalysis Laboratory test result [facility] ([facility]) Is patient fasting? N {SOURCE: Random Void~NURSE COLLECTED? N Is patient fasting? N Color Laboratory test result [facility] ([facility]) Is patient fasting? N {SOURCE: Random Void~NURSE COLLECTED? N Is patient fasting? N Clarity Laboratory test result [facility] ([facility]) Is patient fasting? N {SOURCE: Random Void~NURSE COLLECTED? N Is patient fasting? N Glucose Laboratory test result [facility] ([facility]) Is patient fasting? N {SOURCE: Random Void~NURSE COLLECTED? N Is patient fasting? N pH 5 5-9 [facility] ([facility]) Is patient fasting? N {SOURCE: Random Void~NURSE COLLECTED? N Is patient fasting? N Spec Toney 1.015 1.001-1.030 [facility] ([facility]) Is patient fasting? N {SOURCE: Random Void~NURSE COLLECTED? N Is patient fasting? N Bilirubin Laboratory test result [facility] ([facility]) Is patient fasting? N {SOURCE: Random Void~NURSE COLLECTED? N Is patient fasting? N Protein Laboratory test result [facility] ([facility]) Is patient fasting? N {SOURCE: Random Void~NURSE COLLECTED? N Is patient fasting? N Ketone Laboratory test result [facility] ([facility]) Is patient fasting? N {SOURCE: Random Void~NURSE COLLECTED? N Is patient fasting? N Blood Laboratory test result [facility] ([facility]) Is patient fasting? N {SOURCE: Random Void~NURSE COLLECTED? N Is patient fasting? N Nitrite Laboratory test result [facility] ([facility]) Is patient fasting? N {SOURCE: Random Void~NURSE COLLECTED? N Is patient fasting? N Microscopic Laboratory test result [facility] ([facility]) Is patient fasting? N {SOURCE: Random Void~NURSE COLLECTED? N Is patient fasting? N Leuk Est Laboratory test result [facility] ([facility]) Is patient fasting? N {SOURCE: Random Void~NURSE COLLECTED? N Is patient fasting? N Urobilinogen Laboratory test result [facility] ([facility]) Is patient fasting? N {SOURCE: Random Void~NURSE COLLECTED? N Is patient fasting? N ID Date Data Source [id number] 11/18/2019 03:15:00 PM EDT [facility] ([facility]) Name Value Range Interpretation Code Description Data Giovana rce(s) Supporting Document(s) Thyrotropin [Units/volume] in Serum or Plasma 1.85 uIU/mL 0.47-5.01 [facility] ([facility]) Is patient fasting? N {SOURCE: Random Void~NURSE COLLECTED? N Is patient fasting? N Thyroxine (T4) free [Mass/volume] in Serum or Plasma 0.72 ng/dL 0.93-1.70 Below low normal [facility] ([facility]) Is patient fasting? N {SOURCE: Random Void~NURSE COLLECTED? N Is patient fasting? N Hemoglobin A1c/Hemoglobin.total in Blood 4.3 % 4.4-6.1 Below low normal [facility] ([facility]) Is patient fasting? N {SOURCE: Random Void~NURSE COLLECTED? N Is patient fasting? N ID Date Data Source [id number] 11/18/2019 03:15:00 PM EDT [facility] ([facility]) Name Value Range Interpretation Code Description Data Giovana rce(s) Supporting Document(s) Cve Panel Laboratory test result [facility] ([facility]) Is patient fasting? N {SOURCE: Random Void~NURSE COLLECTED? N Is patient fasting? N Cholesterol 220 mg/dL 131-200 Above high normal [facility] ([facility]) Is patient fasting? N {SOURCE: Random Void~NURSE COLLECTED? N Is patient fasting? N HDL 46 mg/dL 29-86 [facility] ([facility]) Is patient fasting? N {SOURCE: Random Void~NURSE COLLECTED? N Is patient fasting? N Triglycerides 250 mg/dL 35-160 Above high normal [facility] ([facility]) Is patient fasting? N {SOURCE: Random Void~NURSE COLLECTED? N Is patient fasting? N LDL/HDL 3.46 1.00-3.55 [facility] ([facility]) Is patient fasting? N {SOURCE: Random Void~NURSE COLLECTED? N Is patient fasting? N LDL 159 mg/dL 65-175 [facility] ([facility]) Is patient fasting? N {SOURCE: Random Void~NURSE COLLECTED? N Is patient fasting? N Risk Factor 4.8 3.4-4.9 [facility] ([facility]) Is patient fasting? N {SOURCE: Random Void~NURSE COLLECTED? N Is patient fasting? N ID Date Data Source [id number] 11/18/2019 03:15:00 PM EDT [facility] ([facility]) Name Value Range Interpretation Code Description Data Giovana rce(s) Supporting Document(s) Comprehensive Metabo Laboratory test result [facility] ([facility]) Is patient fasting? N {SOURCE: Random Void~NURSE COLLECTED? N Is patient fasting? N Chloride 104 meq/L 98-107 [facility] ([facility]) Is patient fasting? N {SOURCE: Random Void~NURSE COLLECTED? N Is patient fasting? N Potassium 4.0 meq/L 3.6-5.0 [facility] ([facility]) Is patient fasting? N {SOURCE: Random Void~NURSE COLLECTED? N Is patient fasting? N Sodium 142 meq/L 134-153 [facility] ([facility]) Is patient fasting? N {SOURCE: Random Void~NURSE COLLECTED? N Is patient fasting? N Co2 27 meq/L 22-30 [facility] ([facility]) Is patient fasting? N {SOURCE: Random Void~NURSE COLLECTED? N Is patient fasting? N Glucose 91 mg/dL 65-110 [facility] ([facility]) Is patient fasting? N {SOURCE: Random Void~NURSE COLLECTED? N Is patient fasting? N BUN/Creat 17 8-27 [facility] ([facility]) Is patient fasting? N {SOURCE: Random Void~NURSE COLLECTED? N Is patient fasting? N BUN 15 mg/dL 7-21 [facility] ([facility]) Is patient fasting? N {SOURCE: Random Void~NURSE COLLECTED? N Is patient fasting? N Creatinine 0.9 mg/dL 0.7-1.5 [facility] ([facility]) Is patient fasting? N {SOURCE: Random Void~NURSE COLLECTED? N Is patient fasting? N Albumin 4.4 g/dL 3.9-5.0 [facility] Is patient fasting? N {SOURCE: Random Void~NURSE COLLECTED? N Is patient fasting? N Globulin 3.2 GM/DL 2.4-3.2 [facility] ([facility]) Is patient fasting? N {SOURCE: Random Void~NURSE COLLECTED? N Is patient fasting? N Total Protein 7.6 g/dL 6.3-8.2 [facility] ([facility]) Is patient fasting? N {SOURCE: Random Void~NURSE COLLECTED? N Is patient fasting? N Calcium 9.3 mg/dL 8.4-10.2 [facility] ([facility]) Is patient fasting? N {SOURCE: Random Void~NURSE COLLECTED? N Is patient fasting? N A/G Ratio 1.4 0.8-2.0 [facility] ([facility]) Is patient fasting? N {SOURCE: Random Void~NURSE COLLECTED? N Is patient fasting? N Total Bili Laboratory test result 0.2-1.3 [facility] ([facility]) Is patient fasting? N {SOURCE: Random Void~NURSE COLLECTED? N Is patient fasting? N Alkaline Phos 114 U/L 38-126 [facility] ([facility]) Is patient fasting? N {SOURCE: Random Void~NURSE COLLECTED? N Is patient fasting? N Sgot/Ast 22 U/L 5-40 [facility] ([facility]) Is patient fasting? N {SOURCE: Random Void~NURSE COLLECTED? N Is patient fasting? N Age 29 yrs [facility] ([facility]) Is patient fasting? N {SOURCE: Random Void~NURSE COLLECTED? N Is patient fasting? N SGPT/Alt 34 U/L 7-56 [facility] ([facility]) Is patient fasting? N {SOURCE: Random Void~NURSE COLLECTED? N Is patient fasting? N Anion Gap 11.0 mmol/L 8.0-16.0 [facility] ([facility]) Is patient fasting? N {SOURCE: Random Void~NURSE COLLECTED? N Is patient fasting? N Afr Amer GFR Laboratory test result [facility] ([facility]) Is patient fasting? N {SOURCE: Random Void~NURSE COLLECTED? N Is patient fasting? N Non-Aa GFR Laboratory test result [facility] ([facility]) Is patient fasting? N {SOURCE: Random Void~NURSE COLLECTED? N Is patient fasting? N ID Date Data Source [id number] 11/18/2019 03:15:00 PM EDT [facility] ([facility]) Name Value Range Interpretation Code Description Data Giovana rce(s) Supporting Document(s) RBC 5.74 10^6/uL 4.50-6.30 [facility] ([facility]) Is patient fasting? N {SOURCE: Random Void~NURSE COLLECTED? N Is patient fasting? N CBC W/Automated Diff Laboratory test result [facility] ([facility]) Is patient fasting? N {SOURCE: Random Void~NURSE COLLECTED? N Is patient fasting? N WBC 9.5 10^3/uL 4.2-11.0 [facility] ([facility]) Is patient fasting? N {SOURCE: Random Void~NURSE COLLECTED? N Is patient fasting? N Hemoglobin 16.5 g/dL 14.0-16.0 Above high normal [facility] ([facility]) Is patient fasting? N {SOURCE: Random Void~NURSE COLLECTED? N Is patient fasting? N MCV 87.5 fL 80.0-94.0 [facility] ([facility]) Is patient fasting? N {SOURCE: Random Void~NURSE COLLECTED? N Is patient fasting? N Hematocrit 50.2 % 41.0-51.0 [facility] ([facility]) Is patient fasting? N {SOURCE: Random Void~NURSE COLLECTED? N Is patient fasting? N RDW 13.7 % 11.5-14.8 [facility] ([facility]) Is patient fasting? N {SOURCE: Random Void~NURSE COLLECTED? N Is patient fasting? N MCHC 32.9 g/dL 31.0-36.0 [facility] ([facility]) Is patient fasting? N {SOURCE: Random Void~NURSE COLLECTED? N Is patient fasting? N MCH 28.7 pg 27.0-34.0 [facility] ([facility]) Is patient fasting? N {SOURCE: Random Void~NURSE COLLECTED? N Is patient fasting? N MPV 9.2 fL 7.4-10.4 [facility] ([facility]) Is patient fasting? N {SOURCE: Random Void~NURSE COLLECTED? N Is patient fasting? N Platelets 202 10^3/uL 150-450 [facility] ([facility]) Is patient fasting? N {SOURCE: Random Void~NURSE COLLECTED? N Is patient fasting? N Neut 67.2 % 37.0-80.0 [facility] ([facility]) Is patient fasting? N {SOURCE: Random Void~NURSE COLLECTED? N Is patient fasting? N Maries 7.2 % 3.0-8.0 [facility] ([facility]) Is patient fasting? N {SOURCE: Random Void~NURSE COLLECTED? N Is patient fasting? N Eos 3.6 % 0.0-7.0 [facility] ([facility]) Is patient fasting? N {SOURCE: Random Void~NURSE COLLECTED? N Is patient fasting? N Lymph 21.5 % 25.0-40.0 Below low normal [facility] ( [facility]) Is patient fasting? N {SOURCE: Random Void~NURSE COLLECTED? N Is patient fasting? N Baso 0.2 % 0.0-2.0 [facility] ([facility]) Is patient fasting? N {SOURCE: Random Void~NURSE COLLECTED? N Is patient fasting? N %NRBC 0.0 % 0.0-0.0 [facility] ([facility]) Is patient fasting? N {SOURCE: Random Void~NURSE COLLECTED? N Is patient fasting? N %Ig 0.3 % 0.0-0.0 Above high normal [facility] ([facility]) Is patient fasting? N {SOURCE: Random Void~NURSE COLLECTED? N Is patient fasting? N #Neut 6.39 10^3/uL 2.00-6.90 [facility] ([facility]) Is patient fasting? N {SOURCE: Random Void~NURSE COLLECTED? N Is patient fasting? N #Lymph 2.04 10^3/uL 0.60-3.40 [facility] ([facility]) Is patient fasting? N {SOURCE: Random Void~NURSE COLLECTED? N Is patient fasting? N #Maries 0.68 10^3/uL 0.00-0.90 [facility] ([facility]) Is patient fasting? N {SOURCE: Random Void~NURSE COLLECTED? N Is patient fasting? N #Baso 0.02 10^3/uL 0.00-0.20 [facility] ([facility]) Is patient fasting? N {SOURCE: Random Void~NURSE COLLECTED? N Is patient fasting? N #Ig 0.03 10^3/uL 0.00-0.10 [facility]) Is patient fasting? N {SOURCE: Random Void~NURSE COLLECTED? N Is patient fasting? N #Eos 0.34 10^3/uL 0.00-0.70 [facility] ([facility]) Is patient fasting? N {SOURCE: Random Void~NURSE COLLECTED? N Is patient fasting? N #NRBC 0.00 10^3/uL 0.00-0.00 [facility] ([facility]) Is patient fasting? N {SOURCE: Random Void~NURSE COLLECTED? N Is patient fasting? N Manual Diff Laboratory test result [facility] ([facility]) Is patient fasting? N {SOURCE: Random Void~NURSE COLLECTED? N Is patient fasting? N RBC Morph Laboratory test result [facility] ([facility]) Is patient fasting? N {SOURCE: Random Void~NURSE COLLECTED? N Is patient fasting? N ID Date Data Source [id number] 11/18/2019 07:45:00 PM EDT [facility] Name Value Range Interpretation Code Description Data Giovana rce(s) Supporting Document(s) CVE PANEL [facility] LIPID PANEL Cholesterol [Mass/volume] in Serum or Plasma 220 MG/DL 131 - 200 H [facility] Deprecated Triglyceride [Mass/volume] in Serum or Plasma 250 MG/DL 3 5 - 160 H [facility] HDL 46 MG/DL 29 - 86 [facility] Cholesterol in LDL/Cholesterol in HDL [Mass Ratio] in Serum or Plasma 159 mg/dL 65 - 175 [facility] Cholesterol.total/Cholesterol in HDL [Mass Ratio] in Serum o r Plasma 4.8 3.4 - 4.9 [facility] LDL/HDL 3.46 1.00 - 3.55 [facility] CVE RISK CHOL/HDL LDL/HDLMEN: 1/2 AVERAGE 3.43 1.00 AVERAGE 4.97 3.55 2X AVERAGE 9.55 6.25 3X AVERAGE 23.99 7.99WOMEN: 1/2 AVERAGE 3.27 1.47 AVERAGE 4.44 3.22 2X AVERAGE 7.05 5.03 3X AVERAGE 11.04 6.14 ID Date Data Source [id number] 11/18/2019 07:27:00 PM EDT [facility] Name Value Range Interpretation Code Description Data Giovana rce(s) Supporting Document(s) [facility]IS [facility] URINALYSIS SOURCE R [facility] al COLOR yellow NORMAL: Yellow [facility] ospital CLARITY clear NORMAL: Clear [facility] spital Specific gravity of Urine by Test strip 1.015 1.001 - 1.030 [facility] pH 5 5 - 9 [facility] al Glucose [Mass/volume] in Urine by Test strip NORM NORMAL: Negat [facility] Bilirubin.total [Presence] in Urine by Test strip NEG NORMAL: Negative [facility] Ketones [Presence] in Urine by Test strip NEG NORMAL: Negative [facility] Protein [Mass/volume] in Urine by Test strip NEG NORMAL: Negat [facility] Nitrite [Presence] in Urine by Test strip NEG NORMAL: Negative [facility] BLOOD NEG NORMAL: Negative [facility] Leukocyte esterase [Presence] in Urine by Test strip NEG MILAGROS L: Negative [facility] Urobilinogen [Mass/volume] in Urine by Test strip NOR less vanessa n 1.0 mg/dL [facility] MICROSCOPIC Not Indicate [facility] ospital ID Date Data Source [id number] 11/18/2019 07:44:00 PM EDT [facility] Name Value Range Interpretation Code Description Data Giovana rce(s) Supporting Document(s) Hemoglobin A1c/Hemoglobin.total in Blood 4.3 % 4.4 - 6.1 L [facility] {A1]{HB] ID Date Data Source [id number] 11/18/2019 07:54:00 PM EDT [facility] Name Value Range Interpretation Code Description Data Giovana rce(s) Supporting Document(s) Thyroxine (T4) free index in Serum or Plasma by calculation 0.72 NG/DL 0.93 - 1.70 L [facility] ID Date Data Source [id number] 11/18/2019 07:54:00 PM EDT [facility] Name Value Range Interpretation Code Description Data Giovana rce(s) Supporting Document(s) Thyrotropin [Units/volume] in Serum or Plasma by Detec tion limit <= 0.05 mIU/L 1.85 uIU/mL 0.47 - 5.01 [facility] ID Date Data Source [id number] 11/18/2019 07:45:00 PM EDT [facility] Name Value Range Interpretation Code Description Data Giovana rce(s) Supporting Document(s) COMPREHENSIVE METABOLIC PANEL [facility] COMPREHENSIVE METABOLIC PANEL Sodium [Moles/volume] in Serum or Plasma 142 mEq/L 134 - 153 [facility] Potassium [Moles/volume] in Serum or Plasma 4.0 mEq/L 3.6 - 5.0 [facility] Chloride [Moles/volume] in Serum or Plasma 104 mEq/L 98 - 107 [facility] Carbon dioxide, total [Moles/volume] in Serum or Plasma 27 MEQ/L 22 - 30 [facility] Glucose [Mass/volume] in Serum or Plasma 91 MG/DL 65 - 110 [facility] BUN 15 MG/DL 7 - 21 [facility] Creatinine [Mass/volume] in Serum or Plasma 0.9 MG/DL 0.7 - 1.5 [facility] BUN/CREAT 17 8 - 27 [facility] Protein [Mass/volume] in Serum or Plasma 7.6 G/DL 6.3 - 8.2 [facility] Albumin [Mass/volume] in Serum or Plasma 4.4 G/DL 3.9 - 5.0 [facility] Globulin [Mass/volume] in Serum by calculation 3.2 GM/DL 2.4 - 3.2 [facility] A/G RATIO 1.4 0.8 - 2.0 [facility] Calcium [Mass/volume] in Serum or Plasma 9.3 MG/DL 8.4 - 10.2 [facility] Bilirubin.total [Mass/volume] in Serum or Plasma <0.7 MG/DL 0.2 - 1.3 [facility] Alkaline phosphatase [Enzymatic activity/volume] in Serum or Plasma 114 U/L 38 - 126 [facility] Aspartate aminotransferase [Enzymatic activity/volume] in Serum or Plasma 22 U/L 5 - 40 [facility] Alanine aminotransferase [Enzymatic activity/volume] in Seru m or Plasma 34 U/L 7 - 56 [facility] Anion gap 3 in Serum or Plasma 11.0 mmol/L 8.0 - 16.0 [facility] AGE 29 yrs [facility] al NON-AA GFR >60 mL/min [facility] ital AFR AMER GFR >60 mL/min [facility] Ho spital Male GFR In terprentation [...] >32 mL/min Normal ID Date Data Source [id number] 11/18/2019 07:34:00 PM EDT [facility] Name Value Range Interpretation Code Description Data Giovana rce(s) Supporting Document(s) CBC W/AUTOMATED DIFF [facility] COMPLETE BLOOD COUNT Leukocytes [#/volume] in Blood by Automated count 9.5 10^3/uL 4.2 - 1 1.0 [facility] Erythrocytes [#/volume] in Blood by Automated count 5.74 10^6/uL 4. 50 - 6.30 [facility] Hemoglobin [Mass/volume] in Blood 16.5 g/dL 14.0 - 16.0 H [facility] Hematocrit [Volume Fraction] of Blood by Automated count 50.2 % 4 1.0 - 51.0 [facility] Erythrocyte mean corpuscular volume [Entitic volume] by Auto mated count 87.5 fL 80.0 - 94.0 [facility] Erythrocyte mean corpuscular hemoglobin [Entitic mass] by Automated count 28.7 pg 27.0 - 34.0 [facility] Erythrocyte mean corpuscular hemoglobin concentration [Mass/volume] by Automated count 32.9 g/dL 31.0 - 36.0 [facility] Erythrocyte distribution width [Ratio] by Automated count 13.7 % 11.5 - 14.8 [facility] Platelets [#/volume] in Blood by Automated count 202 10^3/uL 150 - 45 0 [facility] Platelet mean volume [Entitic volume] in Blood by Automated count 9.2 fL 7.4 - 10.4 [facility] Neutrophils/100 leukocytes in Blood by Automated count 67.2 % 37. 0 - 80.0 [facility] Lymphocytes/100 leukocytes in Blood by Manual count 21.5 % 25.0 - 40.0 L [facility] Monocytes/100 leukocytes in Blood by Automated count 7.2 % 3.0 - 8.0 [facility] Eosinophils/100 leukocytes in Blood by Automated count 3.6 % 0.0 - 7.0 [facility] Basophils/100 leukocytes in Blood by Automated count 0.2 % 0.0 - 2.0 [facility] %IG 0.3 % 0.0 - 0.0 H [facility] al %NRBC 0.0 % 0.0 - 0.0 [facility] al Neutrophils [#/volume] in Blood by Automated count 6.39 10^3/uL 2.00 - 6.90 [facility] Lymphocytes [#/volume] in Blood by Automated count 2.04 10^3/uL 0.60 - 3.40 [facility] Monocytes [#/volume] in Blood by Automated count 0.68 10^3/uL 0.00 - 0.90 [facility] Eosinophils [#/volume] in Blood by Automated count 0.34 10^3/uL 0.00 - 0.70 [facility] Basophils [#/volume] in Blood by Automated count 0.02 10^3/uL 0.00 - 0.20 [facility] #IG 0.03 10^3/uL 0.00 - 0.10 [facility] ospital #NRBC 0.00 10^3/uL 0.00 - 0.00 [facility] MANUAL DIFF NOT INDICATED [facility] RBC MORPH NOT INDICATED [facility] Ho spital ID Date Data Source [id number] 11/18/2019 03:08:00 PM EDT [facility] ([facility]) Name Value Range Interpretation Code Description Data Giovana rce(s) Supporting Document(s) Spine LS Complete <pending> [facility] ([facility]) Spine Thoracic <pending> [facility] ([facility]) ID Date Data Source [id number] 10/25/2019 08:46:00 AM EDT [facility] [address] [place] [address] PHONE: [phone] FAX: [phone] Name .................. : GAVIOTA Madison Acct Number.................. : [id number] ROOM. ................. : TR-02 Number ................... : [id number] Stay type ............. : E/R Discharge Date......... ... : 10/21/19 Admit Date ......... : 10/21/19 Admit Phys .................... : KHANH LANTIGUA Date of ....... : 1990 Family Phys ................... : NO PCP Phone .................. : [phone] Age ................................ : 29 Film# .................. .:[id number] Sex ................................. : M Unsigned transcriptions are preliminary reports and do not represent a medical or legal document CT ABD & PELV W/O ORAL W/O IV [id number] COMPLETE:10/21/19 19:36 [facility] [address] Reason(s): gross hematuria x [address] [...] fat-containing inguinal hernias. Page 1 of [address] [place] [address] PHONE: [phone] FAX: [phone] Name .................. : GAVIOTA Madison Acct Number.................. : [id number] ROOM. ................. : TR-02 MR Number ................... : [id number] Stay type ............. : E/R Discharge Date......... ... : 10/21/19 Admit Date ......... : 10/21/19 Admit Phys .................... : KHANH LANTIGUA Date of ....... : 1990 Family Phys ................... : NO PCP Phone .................. : [phone] Age ................................ : 29 Film# .................. .:[id number] Sex ................................. : M Unsigned transcriptions are preliminary reports and do not represent a medical or legal document CT ABD & PELV W/O ORAL W/O IV [id number] COMPLETE:10/21/19 19:36 [facility] [address] Reason(s): gross hematuria x 3 weeks Evaluation [...] MD , 10/25/19 08:46, AML Transcribe Initials: GUCCI , Transcribe Date: 10/21/19 21:58, Dictation Date: Copy for: REBECCA Pickett via fax Copy for: EMERGENCY DEPT via modem Copy for: 710 MED REC DISCHARGED Page 2 of 2 Name Value Range Interpretation Code Description Data Giovana rce(s) Supporting Document(s) ID Date Data Source [id number] 10/21/2019 03:31:00 PM EDT [facility] 1 OrderSheet [facility] Emergency Department [address] [place] [address] Phone #: ext- [phone] 10/21/2019 15:22 Patient: NICK TRUJILLO Sex: M : 1990 Age: 29yWEIGHT:176.4 kg HEIGHT:71 inches BMI:54.3ALLERGIES: Dilantin, Naproxsyn, Tylenol with codeinCHIEF COMPLAINT: dysuriaDIAGNOSIS: Renal colic, Blood in urineLAB ORDERSOrder Description Priority Entered Acknowledged InitialedUrinalysis (Clean STAT 15:30 10/21/2019 15:31 Rehana Crane) Morgan TANG; Kota BaeCBC w Diff STAT 16:14 10/21/2019 Ack'd: 16:20 16:44 Morgan Crane; Kota Crane R.N. RShayNShayCMP STAT 16:14 10/21/2019 Ack'd: 16:20 16:44 Morgan Crane; Kota Crane R.N., R.N.DIAGNOSTIC STUDY ORDERSOrder Description Priority Entered Acknowledged InitialedCT ABD PEL W/O STAT 16:14 10/21/2019 Ack'd: 16:20 16:44 RoyceOral W/O IV Morgan TANG; Kota Crane R.N.Contrast R.N.(Oxygen?(No))(IV?(No)) Reason for Study: gross hematuria x 3 weeksMEDICATION/IV/DRIP/FLUID ORDERSOrder Description Priority Entered Acknowledged InitialedGENERAL ORDERSOrder Description Priority Entered Acknowledged Initialed[Electronically signed by Kota Crane R.N. (17:42 10/21/2019)][Electronically signed by Morgan Pedraza (18:16 10/21/2019)][Electronically locked by Kota Crane R.N. (17:42 10/21/2019)] Name Value Range Interpretation Code Description Data Giovana rce(s) Supporting Document(s) ID Date Data Source [id number] 10/21/2019 03:31:00 PM EDT [facility] 1 Medication Reconciliation Report [facility] Emergency Department [address] [place] [address] Phone #: ext- [phone] 10/21/2019 15:22 Patient: [...] Dispense 28capsule. Refills: 0. Substitution permitted.Pharmacy - [phone] [address] [place], [place] [id number]. . -- CLYDE Milton Name Value Range Interpretation Code Description Data [facility] Supporting Document(s) ID Date Data Source [id number] 10/21/2019 03:31:00 PM EDT [facility] 1 Medication Administration Record [facility] Emergency Department [address] [place] [address] Phone #: ext- [phone] 10/21/2019 15:22 Patient: NICK TRUJILLO Sex: M : 1990 Age: 29yWeight: 176.4 kgHeight/Length: 71 inBMI: 54.3ALLERGIES: Naproxsyn, Tylenol with codein, DilantinDate/Time Medication Administered Medication Ordered Name Value Range Interpretation Code Description Data [facility](s) Supporting Document(s) ID Date Data Source [id number] 10/21/2019 03:31:00 PM EDT [facility] 1 General Instructions [facility] Emergency Department [address] [place] [address] Phone #: ext- [phone] 10/21/2019 15:22 Patient: [...] Dispense 28capsule. Refills: 0. Substitution permitted.Pharmacy - [facility] - [address] [facility] ; [place], [place] [id number]. .Follow-up:Follow up with your healthcare provider in [...] INFORMATIONBlood in the Urine 2 General Instructions [facility] Emergency Department [address] [place] [address] Phone #: ext- [phone] 10/21/2019 15:22 Patient: NICK TRUJILLO Sex: M [...] had blood in your 3 General Instructions [facility] Emergency Department [address] [place] [address] Phone #: ext- [phone] 10/21/2019 15:22 Patient: NICK TRUJILLO Sex: M : 1990 Age: 29yurine, [...] the nose or gums or easy bruising [id number] [employer]. [address] [place] [address], [place] [address]. All rights reserved. This information is not [...] rce(s) Supporting Document(s) ID Date Data Source [id number] 10/21/2019 03:31:00 PM EDT [facility] 1 Clinical Report - Nurses [facility] Emergency Department [address] [place] [address] Phone #: ext- [phone] 10/21/2019 15:22 Patient: NICK TRUJILLO Sex: M [...] --15:26 10/21/19 Kota Crane R.N.ADDITIONAL SURGERIES:Hernia Repair. --15:10/21/19 Kota Crane R.N.HistorySOCIAL HX: Never smoker. No [...] before today?". 2 Clinical Report - Nurses [facility] Emergency Department [address] [place] [address] Phone #: ext- [phone] 10/21/2019 15:22 Patient: [...] assessment completed. No skin integrity risk identified. --1510/21/19 Kota Crane R.N. Interventions Identification band on patient. To treatment room. --1510/21/19 Kota Crane R.N.PHYSICAL ASSESSMENT( Pt having trouble [...] Kota Crane R.N.NURSING PROGRESS NOTESPatient transported to [place] by wheelchair with chemical waste management technician. --16:41 10/21/19 Kota Crane R.N. 17:01 10/21/19. BP: 127/71. MAP: 89. HR: 104. RR: 18. O2 saturation: 99%. --17:02 10/21/19 [facility] [place], [place], Tech1.DISPOSITION / DISCHARGE 17:38 10/21/19. BP: 125/78. MAP: 93. HR: 98. RR: 18. O2 saturation: 99%. Temp: 98.6 F. --17:38 10/21/19 [facility] [place] [facility] [place], [place], ER Tech1 Condition at departure: unchanged. Discharge instructions provided and reviewed with the patient. Reviewed medication(s). Prescription(s) sent electronically to pharmacy. Patient verbalized understanding. Written instructions provided in Botswanan. The patient was discharged by the physician. He was discharged home. He left ambulatory. Patient driving. --17:41 10/21/19 Kota Craen R.N. 17:41 10/21/19. Pain level now 0/10. --17:41 10/21/19 Kota Crane R.N. 3 Clinical Report - Nurses [facility] Emergency Department [address] [place] [address] Phone #: ext- [phone] 10/21/2019 15:22 Patient: NICK TRUJILLO Sex: M : 1990 Age: 29yLocked/Released at 10/21/2019 17:42 by Kota Crane R.N. Name Value Range Interpretation Code Description Data Giovana rce(s) Supporting Document(s) ID Date Data Source [id number] 10/21/2019 03:31:00 PM EDT [facility] 1 Clinical Report - Physicians/Mid Levels [facility] Emergency Department [address] [place] [address] Phone #: ext- [phone] 10/21/2019 15:22 Patient: [...] allergies. 2 Clinical Report - Physicians/Mid Levels [facility] Emergency Department [address] [place] [address], [place] [address] Phone #: ext- [phone] 10/21/2019 15:22 Patient: NICK TRUJILLO Sex: M [...] results 3 Clinical Report - Physicians/Mid Levels [facility] Emergency Department [address] [place] [address] Phone #: ext- [phone] 10/21/2019 15:22 [id number] Sex: M : 1990 Age: 29y Test [...] treatment. 4 Clinical Report - Physicians/Mid Levels [facility] Emergency Department [address] [place] [address] Phone #: jyp- [phone] 10/21/2019 15:22 Patient: NICK TRUJILLO Sex: M [...] capsule. Refills: 0. Substitution permitted. Pharmacy - [facility] - [address] [facility] ; [place], [place] [phone]. . Follow- up: Follow up with your [...] rce(s) Supporting Document(s) ID Date Data Source [id number] 10/21/2019 04:27:00 PM EDT [facility] ([facility]) Name Value Range Interpretation Code Description Data Giovana rce(s) Supporting Document(s) Comprehensive [facility] Laboratory test result [facility] ([facility]) COMPREHENSIVE METABOLIC PANEL Chloride 106 meq/L 98-107 [facility] ([facility]) Potassium 4.0 meq/L 3.6-5.0 [facility] ([facility]) Sodium 144 meq/L 134-153 [facility] ([facility]) Co2 25 meq/L 22-30 [facility] ([facility]) BUN 10 mg/dL 7-21 [facility] ([facility]) Glucose 102 mg/dL 65-110 [facility] ([facility]) Creatinine 0.8 mg/dL 0.7-1.5 [facility] ([facility]) BUN/Creat 13 8-27 [facility] ([facility]) Total Protein 7.7 g/dL 6.3-8.2 [facility] ([facility]) Albumin 4.4 g/dL 3.9-5.0 [facility] ([facility]) Globulin 3.3 GM/DL 2.4-3.2 Above high normal [facility] ([facility]) Calcium 9.1 mg/dL 8.4-10.2 [facility] ([facility]) A/G Ratio 1.3 0.8-2.0 [facility] ([facility]) Total Bili Laboratory test result 0.2-1.3 [facility] ([facility]) Alkaline Phos 104 U/L 38-126 [facility] ([facility]) Sgot/Ast 27 U/L 5-40 [facility] ([facility]) Anion Gap 13.0 mmol/L 8.0-16.0 [facility] ([facility]) SGPT/Alt 43 U/L 7-56 [facility] ([facility]) Age 29 yrs [facility] ([facility]) Afr Amer GFR Laboratory test result [facility] ([facility]) Male GFR Interprentation 20-49 yrs >60 mL/min [...] mL/min Normal Non-Aa GFR Laboratory test result [facility]) ID Date Data Source [id number] 10/21/2019 04:27:00 PM EDT [facility] ([facility]) Name Value Range Interpretation Code Description Data Giovana rce(s) Supporting Document(s) CBC W/Automated Diff Laboratory test result [facility] ([facility]) COMPLETE BLOOD COUNT WBC 9.1 10^3/uL 4.2-11.0 [facility] ([facility]) RBC 5.69 10^6/uL 4.50-6.30 [facility] ([facility]) Hemoglobin 16.3 g/dL 14.0-16.0 Above high normal [facility] ([facility]) Hematocrit 50.9 % 41.0-51.0 [facility] ([facility]) MCV 89.5 fL 80.0-94.0 [facility] ([facility]) MCH 28.6 pg 27.0-34.0 [facility] ([facility]) RDW 13.9 % 11.5-14.8 [facility] ([facility]) MCHC 32.0 g/dL 31.0-36.0 [facility] ([facility]) MPV 8.9 fL 7.4-10.4 [facility] ([facility]) Platelets 224 10^3/uL 150-450 [facility] ([facility]) Neut 72.7 % 37.0-80.0 [facility] ([facility]) Lymph 15.4 % 25.0-40.0 Below low normal [facility] ( [facility]) Maries 9.1 % 3.0-8.0 Above high normal [facility] ([facility]) Baso 0.2 % 0.0-2.0 [facility] ([facility]) Eos 2.4 % 0.0-7.0 [facility] ([facility]) %Ig 0.2 % 0.0-0.0 Above high normal [facility] ([facility]) %NRBC 0.0 % 0.0-0.0 [facility] ([facility]) #Neut 6.61 10^3/uL 2.00-6.90 [facility] ([facility]) #Maries 0.83 10^3/uL 0.00-0.90 [facility] ([facility]) #Lymph 1.40 10^3/uL 0.60-3.40 [facility] ([facility]) #Eos 0.22 10^3/uL 0.00-0.70 [facility] ([facility]) #Baso 0.02 10^3/uL 0.00-0.20 [facility] ([facility]) #Ig 0.02 10^3/uL 0.00-0.10 [facility] ([facility]) #NRBC 0.00 10^3/uL 0.00-0.00 [facility] ([facility]) Manual Diff Laboratory test result [facility] ([facility]) RBC Morph Laboratory test result [facility] ([facility]) ID Date Data Source [id number] 10/21/2019 05:29:00 PM EDT [facility] Name Value Range Interpretation Code Description Data Giovana rce(s) Supporting Document(s) COMPREHENSIVE METABOLIC PANEL [facility] COMPREHENSIVE METABOLIC PANEL Sodium [Moles/volume] in Serum or Plasma 144 mEq/L 134 - 153 [facility] Potassium [Moles/volume] in Serum or Plasma 4.0 mEq/L 3.6 - 5.0 [facility] Chloride [Moles/volume] in Serum or Plasma 106 mEq/L 98 - 107 [facility] Carbon dioxide, total [Moles/volume] in Serum or Plasma 25 MEQ/L 22 - 30 [facility] Glucose [Mass/volume] in Serum or Plasma 102 MG/DL 65 - 110 [facility] BUN 10 MG/DL 7 - 21 [facility] Creatinine [Mass/volume] in Serum or Plasma 0.8 MG/DL 0.7 - 1.5 [facility] BUN/CREAT 13 8 - 27 [facility] al Protein [Mass/volume] in Serum or Plasma 7.7 G/DL 6.3 - 8.2 [facility] Albumin [Mass/volume] in Serum or Plasma 4.4 G/DL 3.9 - 5.0 [facility] Globulin [Mass/volume] in Serum by calculation 3.3 GM/DL 2.4 - 3.2 H [facility] A/G RATIO 1.3 0.8 - 2.0 [facility] Calcium [Mass/volume] in Serum or Plasma 9.1 MG/DL 8.4 - 10.2 [facility] Bilirubin.total [Mass/volume] in Serum or Plasma <0.7 MG/DL 0.2 - 1.3 [facility] Alkaline phosphatase [Enzymatic activity/volume] in Serum or Plasma 104 U/L 38 - 126 [facility] Aspartate aminotransferase [Enzymatic activity/volume] in Serum or Plasma 27 U/L 5 - 40 [facility] Alanine aminotransferase [Enzymatic activity/volume] in Seru m or Plasma 43 U/L 7 - 56 [facility] Anion gap 3 in Serum or Plasma 13.0 mmol/L 8.0 - 16.0 [facility] AGE 29 yrs [facility] al NON-AA GFR >60 mL/min [facility] AFR AMER GFR >60 mL/min [facility] Male GFR In terprentation [...] >32 mL/min Normal ID Date Data Source [id number] 10/21/2019 04:43:00 PM EDT [facility] Name Value Range Interpretation Code Description Data Giovana rce(s) Supporting Document(s) CBC W/AUTOMATED DIFF [facility] COMPLETE BLOOD COUNT Leukocytes [#/volume] in Blood by Automated count 9.1 10^3/uL 4.2 - 1 1.0 [facility] Erythrocytes [#/volume] in Blood by Automated count 5.69 10^6/uL 4. 50 - 6.30 [facility] Hemoglobin [Mass/volume] in Blood 16.3 g/dL 14.0 - 16.0 H [facility] Hematocrit [Volume Fraction] of Blood by Automated count 50.9 % 4 1.0 - 51.0 [facility] Erythrocyte mean corpuscular volume [Entitic volume] by Auto mated count 89.5 fL 80.0 - 94.0 [facility] Erythrocyte mean corpuscular hemoglobin [Entitic mass] by Automated count 28.6 pg 27.0 - 34.0 [facility] Erythrocyte mean corpuscular hemoglobin concentration [Mass/volume] by Automated count 32.0 g/dL 31.0 - 36.0 [facility] Erythrocyte distribution width [Ratio] by Automated count 13.9 % 11.5 - 14.8 [facility] Platelets [#/volume] in Blood by Automated count 224 10^3/uL 150 - 45 0 [facility] Platelet mean volume [Entitic volume] in Blood by Automated count 8.9 fL 7.4 - 10.4 [facility] Neutrophils/100 leukocytes in Blood by Automated count 72.7 % 37. 0 - 80.0 [facility] Lymphocytes/100 leukocytes in Blood by Manual count 15.4 % 25.0 - 40.0 L [facility] Monocytes/100 leukocytes in Blood by Automated count 9.1 % 3.0 - 8.0 H [facility] Eosinophils/100 leukocytes in Blood by Automated count 2.4 % 0.0 - 7.0 [facility] Basophils/100 leukocytes in Blood by Automated count 0.2 % 0.0 - 2.0 [facility] %IG 0.2 % 0.0 - [facility] 0.0 % 0.0 - 0.0 [facility] al Neutrophils [#/volume] in Blood by Automated count 6.61 10^3/uL 2.00 - 6.90 [facility] Lymphocytes [#/volume] in Blood by Automated count 1.40 10^3/uL 0.60 - 3.40 [facility] Monocytes [#/volume] in Blood by Automated count 0.83 10^3/uL 0.00 - 0.90 [facility] Eosinophils [#/volume] in Blood by Automated count 0.22 10^3/uL 0.00 - 0.70 [facility] Basophils [#/volume] in Blood by Automated count 0.02 10^3/uL 0.00 - 0.20 [facility] #IG 0.02 10^3/uL 0.00 - 0.10 [facility] ospital #NRBC 0.00 10^3/uL 0.00 - 0.00 [facility]spital MANUAL DIFF NOT INDICATED [facility] RBC MORPH NOT INDICATED [facility]ital ID Date Data Source [id number] 10/21/2019 03:35:00 PM EDT [facility] ([facility]) Name Value Range Interpretation Code Description Data Giovana rce(s) Supporting Document(s) Urinalysis Laboratory test result [facility] ([facility]) SOURCE: Clean Catch Source Laboratory test result [facility] ([facility]) SOURCE: Clean Catch Color Laboratory test result [facility] ([facility]) SOURCE: Clean Catch pH 5 5-9 [facility] ([facility]) SOURCE: Clean Catch Clarity Laboratory test result [facility] ([facility]) SOURCE: Clean Catch Spec Toney 1.010 1.001-1.030 [facility] ([facility]) SOURCE: Clean Catch Glucose Laboratory test result [facility] ([facility]) SOURCE: Clean Catch Bilirubin Laboratory test result [facility] ([facility]) SOURCE: Clean Catch Ketone Laboratory test result [facility] ([facility]) SOURCE: Clean Catch Protein Laboratory test result [facility] ([facility]) SOURCE: Clean Catch Blood 10 Abnormal (applies to non-numeric res ults) [facility] ([facility]) SOURCE: Clean Catch Nitrite Laboratory test result [facility] ([facility]) SOURCE: Clean Catch Urobilinogen Laboratory test result [facility] ([facility]) SOURCE: Clean Catch Leuk Est Laboratory test result [facility] ([facility]) SOURCE: Clean Catch RBC Laboratory test result [facility] ([facility]) SOURCE: Clean Catch Microscopic Laboratory test result M EDENT ([facility]) SOURCE: Clean Catch Epithelial Laboratory test result [facility] ([facility]) SOURCE: Clean Catch ID Date Data Source [id number] 10/21/2019 04:12:00 PM EDT [facility] Name Value Range Interpretation Code Description Data Giovana rce(s) Supporting Document(s) URINALYSIS [facility] Hos[facility] giovanna URINALYSIS SOURCE Clean Catch [facility] COLOR yellow NORMAL: Yellow [facility] CLARITY clear NORMAL: Clear [facility] Specific gravity of Urine by Test strip 1.010 1.001 - 1.030 [facility] pH 5 5 - 9 [facility] al Glucose [Mass/volume] in Urine by Test strip NORM NORMAL: Negat rebekah [facility] Bilirubin.total [Presence] in Urine by Test strip NEG NORMAL: Negative [facility] Ketones [Presence] in Urine by Test strip NEG NORMAL: Negative [facility] Protein [Mass/volume] in Urine by Test strip NEG NORMAL: Negat [facility] Nitrite [Presence] in Urine by Test strip NEG NORMAL: Negative [facility] BLOOD 10 NORMAL: Negative A [facility] Leukocyte esterase [Presence] in Urine by Test strip NEG MILAGROS L: Negative [facility] Urobilinogen [Mass/volume] in Urine by Test strip NOR less vanessa n 1.0 mg/dL [facility] MICROSCOPIC See [facility] ital Erythrocytes [#/volume] in Urine by Test strip 0 - 1 NORMAL: NON E SEEN [facility] EPITHELIAL FEW NORMAL: NONE SEEN [facility] Hospital ID Date Data Source [id number] 09/14/2019 03:51:00 [facility] Patient Name: NICK TRUJILLO : 1990 Sex: M Pt Unit #: [id number] Location:[facility] Provider: Visit Date/Time: 09/14/19 Primary Insurance: [facility] Secondary Insurance: Self Pay Intake Vital Signs [...] arrange this because he is moving to [place] this month and it may be hard to keep appointments. Here with forms for DSS to get some home health services. He seems to identify the problem with his right foot as the main reason for this. He has been seeing a surgeon in [place] for this and they are apparently recommending [...] of unspecified foot, initial encounter SNOMED Code(s): 764309543 Category: Medical Plan - Kota Anderson MD: Possibly soft tissue but worth doing an X ray to look at possible fractures. Continue conservative treatment. Encouraged him to consider taking Tylenol more often. (2) Low back pain at multiple sites: Status: Acute Code(s): M54.5 - Low back pain SNOMED Code(s): 105138520 Category: Medical Plan - Kota Anderson MD: [...] rce(s) Supporting Document(s) ID Date Data Source [id number] 08/12/2019 02:08:00 PM [facility] Patient Name: NICK TRUJILLO : 1990 Sex: M Pt Unit #: [id number] Location:[facility] Provider: Visit Date/Time: 08/12/19 Primary Insurance: [facility] Secondary Insurance: Self Pay Intake Vital Signs [...] states medicine Dr. Anderson prescribed is working [employer] Required: No Is patient in pain?: Yes [...] offer been met?: Patient reports past refusal [facility] Medical History Acne (Chronic) Acne vulgaris (Acute [...] obesity due to excess calories SNOMED Code(s): 238726453 Category: Medical Electronically Signed By: <Electronically signed by Lance Arenas DO> Date/Time Signed: 08/12/19 1432 Name Value Range Interpretation Code Description Data Giovana rce(s) Supporting Document(s) Procedure Social History Code Duration Value Status Description Data Source(s ) Alcohol intake 06/28/2020 12:00:00 AM EST Current non-d roscoe of alcohol (finding) completed Current non-drinker of alcohol (finding) [facility] Tobacco use and exposure 06/28/2020 12:00:00 AM EST Never used co mpleted Never used [facility] Smoking 06/28/2020 12:00:00 AM EST Never smoker completed Never s [facility] Alcohol intake 06/06/2020 12:00:00 AM EST Current non-d rsocoe of alcohol (finding) completed Current non-drinker of alcohol (finding) [facility] Alcohol intake 05/09/2020 12:00:00 AM EDT Current non-d roscoe of alcohol (finding) completed Current non-drinker of alcohol (finding) [facility] Alcohol intake 04/26/2020 12:00:00 AM EDT Current non-d roscoe of alcohol (finding) completed Current non-drinker of alcohol (finding) [facility] Alcohol intake 02/09/2020 12:00:00 AM EDT No completed [facility] Smoking 02/09/2020 12:00:00 AM EDT Never smoker completed Never s [facility] Alcohol intake 02/04/2020 12:00:00 AM EDT No completed [facility] Smoking 02/04/2020 12:00:00 AM EDT Never smoker completed Never s [facility] Caffeine Use Details 10/06/2019 12:00:00 AM EDT completed [facility] ([facility]) 10/06/2019 12:00:00 AM EDT Never smoked tobacco comple sheri Never smoked tobacco [facility] Smoking 10/06/2019 12:00:00 AM EDT Never smoker completed Never s moker [facility] ([facility]) 09/14/2019 03:51:40 PM EST Never smoker completed Never s [facility] Smoking 09/14/2019 03:51:00 PM EST Never smoker completed Never s [facility] 08/12/2019 02:22:00 PM EST Never smoker completed Never s [facility] 08/12/2019 02:22:00 PM EST No completed No [facility] 08/12/2019 02:22:00 PM EST No completed No [facility] Vital Signs ID Date Data Source UNK Name Value Range Interpretation Code Description Data Source(s) Diastolic blood pressure 82 mm[Hg] 82 mm[Hg] eCW1 ([facility]) Systolic blood pressure 136 mm[Hg] 136 mm[Hg] e CW1 ([facility]) Body mass index (BMI) [Ratio] 59.41 kg/m2 59.41 kg/m2 W1 ([facility]) Body height 71 [in_i] 71 [in_i] eCW1 ([facility]) Body weight 426 [lb_av] 426 [lb_av] eCW1 ([facility]) Diastolic blood pressure 92 mm[Hg] 92 mm[Hg] W1 ([facility]) Systolic blood pressure 138 mm[Hg] 138 mm[Hg] e CW1 ([facility]) Body mass index (BMI) [Ratio] 57.46 kg/m2 57.46 kg/m2 W1 ([facility]) Body height 71 [in_i] 71 [in_i] eCW1 ([facility]) Body weight 412 [lb_av] 412 [lb_av] eCW1 ([facility]) Body weight 180.986 kg 180.986 kg [facility] ([facility]) Body weight 399.00 [lb_av] 399.00 [lb_av] MED[facility] T ([facility]) Oxygen saturation in Arterial blood by Pulse oximetry 98 % 98 % [facility]) Respiratory rate 18 /min 18 /min [facility] ( [facility]) Body temperature 97.6 [degF] 97.6 [degF] [facility] ([facility]) Heart rate 96 /min 96 /min [facility] ([facility]) Diastolic blood pressure 78 mm[Hg] 78 mm[Hg] [facility] ([facility]) Systolic blood pressure 132 mm[Hg] 132 mm[Hg] M [facility] ([facility]) Diastolic blood pressure 61 mm[Hg] 61 mm[Hg] [facility] Systolic blood pressure 120 mm[Hg] 120 mm[Hg] [facility] Oxygen saturation in Arterial blood by Pulse oximetry 93 % 93 % [facility] Body temperature 36.5 Opal 36.5 Opal [facility] Respiratory rate 16 /min 16 /min [facility] Heart rate 88 /min 88 /min [facility] Body mass index (BMI) [Ratio] 55.37 kg/m2 55.37 kg/m2 [facility] Body weight 180.078 kg 180.078 kg [facility] Body height 180.3 cm 180.3 cm [facility] Oxygen saturation in Arterial blood by Pulse oximetry 95 % 95 % [facility] Body mass index (BMI) [Ratio] 55.50 kg/m2 55.50 kg/m2 [facility] Body weight 180.486 kg 180.486 kg [facility] Body height 180.3 cm 180.3 cm [facility] Heart rate 96 /min 96 /min [facility] Diastolic blood pressure 61 mm[Hg] 61 mm[Hg] [facility] Systolic blood pressure 112 mm[Hg] 112 mm[Hg] [facility] Body weight 180.533 kg 180.533 kg [facility] ([facility]) Body mass index (BMI) [Ratio] 55.5 kg/m2 55.5 k g/m2 [facility] ([facility]) Heart rate 96 /min 96 /min [facility] ([facility]) Diastolic blood pressure 79 mm[Hg] 79 mm[Hg] [facility] ([facility]) Systolic blood pressure 143 mm[Hg] 143 mm[Hg] M EDENT ([facility]) Body weight 398.00 [lb_av] 398.00 [lb_av] MED[facility] T ([facility]) Temp 97.7 Body height 71 [in_i] 71 [in_i] [facility] ([facility]) 5'11" Body weight 180.533 kg 180.533 kg [facility] ([facility]) Body weight 398.00 [lb_av] 398.00 [lb_av] MED[facility] T ([facility]) Oxygen saturation in Arterial blood by Pulse oximetry 97 % 97 % [facility]) Respiratory rate 22 /min 22 /min [facility] Body temperature 97.6 [degF] 97.6 [degF] [facility] ([facility]) Heart rate 86 /min 86 /min [facility] ([facility]) Diastolic blood pressure 72 mm[Hg] 72 mm[Hg] [facility] Systolic blood pressure 130 mm[Hg] 130 mm[Hg] M [facility] ([facility]) Body surface area 2.79 m2 2.79 m2 [facility] ([facility]) Body mass index (BMI) [Ratio] 54.1 kg/m2 54.1 k g/m2 [facility] ([facility]) Body height 71 [in_i] 71 [in_i] [facility] ([facility]) 5'11" Body weight 175.997 kg 175.997 kg [facility] ([facility]) per chart Body weight 388.00 [lb_av] 388.00 [lb_av] [facility] T ([facility]) Body surface area 2.79 m2 2.79 m2 [facility] ([facility]) Body mass index (BMI) [Ratio] 54.1 kg/m2 54.1 k g/m2 [facility] ([facility]) Body height 71 [in_i] 71 [in_i] [facility] ([facility]) 5'11" Body weight 175.997 kg 175.997 kg [facility] ([facility]) Body weight 388.00 [lb_av] 388.00 [lb_av] [facility] T ([facility]) Oxygen saturation in Arterial blood by Pulse oximetry 96 % 96 % [facility] ([facility]) Respiratory rate 24 /min 24 /min [facility] wearing mask Body temperature 97.8 [degF] 97.8 [degF] [facility] ([facility]) Heart rate 76 /min 76 /min [facility] ([facility]) Diastolic blood pressure 58 mm[Hg] 58 mm[Hg] [facility] ([facility]) Systolic blood pressure 126 mm[Hg] 126 mm[Hg] [facility] Body surface area 2.78 m2 2.78 m2 [facility] ([facility]) Body mass index (BMI) [Ratio] 53.6 kg/m2 53.6 k g/m2 [facility] ([facility]) Body height 71 [in_i] 71 [in_i] [facility] ([facility]) 5'11" Body weight 174.296 kg 174.296 kg [facility] ([facility]) Body weight 384.25 [lb_av] 384.25 [lb_av] [facility] T ([facility]) Oxygen saturation in Arterial blood by Pulse oximetry 98 % 98 % [facility] ([facility]) Respiratory rate 18 /min 18 /min [facility] ( [facility]) Body temperature 98.0 [degF] 98.0 [degF] [facility] ([facility]) Heart rate 94 /min 94 /min [facility] ([facility]) Diastolic blood pressure 64 mm[Hg] 64 mm[Hg] [facility] ([facility]) Systolic blood pressure 118 mm[Hg] 118 mm[Hg] [facility] ([facility]) Heart rate 92 /min 92 /min [facility] ([facility]) Diastolic blood pressure 88 mm[Hg] 88 mm[Hg] [facility] ([facility]) Systolic blood pressure 140 mm[Hg] 140 mm[Hg] N [facility] ([facility]) ID Date Data Source [id number] 06/09/2020 09:34:40 AM EST [facility] Name Value Range Interpretation Code Description Data Source(s) WEIGHT RECORDED 417.6 lb 417.6 lb [facility] Body height Measured 70.[address] [facility] ID Date Data Source [id number] 05/09/2020 02:17:55 PM EDT [facility] Name Value Range Interpretation Code Description Data Source(s) WEIGHT RECORDED 407 lb 407 lb [facility] Body height Measured 70.98 in 70[address] [facility] ID Date Data Source [id number] 01/14/2020 09:34:45 AM EDT [facility] Name Value Range Interpretation Code Description Data Source(s) WEIGHT RECORDED 384.00 pounds 384.00 pounds [facility] Height 71 Inches 071 Inches [facility] Patient Treatment Plan of Care Planned Activity Planned Date Details Description Data Source (s) Misc. Devices (DURABLE MEDICAL EQUIPMENT SEE SIG) XX M ISC 06/28/2020 12:00:00 AM [facility] Clindamycin 0.01 MG/MG Topical Gel 06/12/2020 12:00:00 AM EST eCW1 ([facility]) Cephalexin 500 MG Oral Capsule 06/06/2020 01:30:[address] [facility] lidocaine (XYLOCAINE) 2 % urojet 20 mL 06/06/2020 01:30:[address] [facility] Doxycycline Monohydrate 50 MG Oral Capsule 05/15/2020 12:00:00 AM E DT eCW1 ([facility]) ciclopirox 10 MG/ML Medicated Shampoo 05/15/2020 12:00:00 AM EDT eCW1 ([facility]) alclometasone dipropionate 0.5 MG/ML Topical Cream 05/15/2020 12 :00:00 AM EDT eCW1 ([facility]) Doxycycline Monohydrate 50 MG Oral Capsule 05/15/2020 12:00:00 AM E DT eCW1 ([facility]) ciclopirox 10 MG/ML Medicated Shampoo 05/15/2020 12:00:00 AM EDT eCW1 ([facility]) alclometasone dipropionate 0.5 MG/ML Topical Cream 05/15/2020 12 :00:00 AM EDT eCW1 ([facility]) Doxycycline Monohydrate 50 MG Oral Capsule 05/15/2020 12:00:00 AM E DT eCW1 ([facility]) ciclopirox 10 MG/ML Medicated Shampoo 05/15/2020 12:00:00 AM EDT eCW1 ([facility]) alclometasone dipropionate 0.5 MG/ML Topical Cream 05/15/2020 12 :00:00 AM EDT eCW1 ([facility]) alclometasone dipropionate 0.5 MG/ML Topical Cream 05/15/2020 12 :00:00 AM EDT eCW1 ([facility]) Doxycycline Monohydrate 50 MG Oral Capsule 05/15/2020 12:00:00 AM E DT eCW1 ([facility]) ciclopirox 10 MG/ML Medicated Shampoo 05/15/2020 12:00:00 AM EDT eCW1 ([facility]) Docusate Sodium 100 MG Oral Capsule [DOK] 04/07/2020 12:00:00 AM ED [facility] Desvenlafaxine Succinate ER 100 MG Oral Tablet Extended Release 24 Hour (PRISTIQ) 04/07/2020 12:00:00 AM EDT [facility] Nystatin 100 UNT/MG Topical Powder 03/27/2020 12:00:00 AM [facility] Oxycodone Hydrochloride 5 MG Oral Tablet 02/09/2020 12:00:00 AM EDT [facility] Misc. Devices (DURABLE MEDICAL EQUIPMENT SEE SIG) [facility] 10/09/2018 12:00:[address] [facility] ospital gabapentin 100 MG Oral Capsule 03/03/2018 [facility]diphenhydrAMINE (RADIATION MIXTURE) 1 :1:1 oral suspension 05/29/2017 12:00:00 AM EDT [facility] Melatonin 3 MG Oral Tablet [facility] doxycycline hyclate 50 MG Oral Capsule [facility] PARoxetine (PAXIL) 30 MG tablet [facility]
[2020-08-17 20:33] LABS: BASO % 0.2 % (0.0-1.0); EOS # 0.2 10^3/uL (0.0-0.5); EOS % 2.2 % (0.0-3.0); HEMATOCRIT 51.6 % (42.0-52.0); HEMOGLOBIN 16.7 g/dl (13.5-17.5); LYMPH # 2.1 10^3/uL (1.5-5.0); LYMPH % 19.7 % (24.0-44.0); MEAN CORPUSCULAR HEMOGLOBIN 29.3 pg (27.0-33.0); MEAN CORPUSCULAR HGB CONC 32.4 g/dl (32.0-36.5); MEAN CORPUSCULAR VOLUME 90.5 fl (80.0-96.0); MONO # 0.8 10^3/uL (0.0-0.8); NEUTROPHILS # 7.2 10^3/uL (1.5-8.5); NEUTROPHILS % 69.5 % (36.0-66.0); PLATELET COUNT, AUTOMATED 222 10^3/uL (150-450); WHITE BLOOD COUNT 10.4 10^3/uL (4.0-10.0)
[2020-08-17 20:59] LABS: ALBUMIN 3.6 GM/DL (3.2-5.2); ALT/SGPT 55 U/L (12-78); BILIRUBIN,DIRECT 0.1 MG/DL (0.0-0.2); BILIRUBIN,TOTAL 0.4 MG/DL (0.2-1.0); BLOOD UREA NITROGEN 14 MG/DL (7-18); CALCIUM LEVEL 9.5 MG/DL (8.5-10.1); CARBON DIOXIDE LEVEL 26 MEQ/L (21-32); CHLORIDE LEVEL 111 MEQ/L (98-107); CREATININE FOR GFR 0.96 MG/DL (0.70-1.30); GLOMERULAR FILTRATION RATE > 60.0 (>60); GLUCOSE, FASTING 108 MG/DL (70-100); LIPASE 111 U/L (73-393); POTASSIUM SERUM 3.8 MEQ/L (3.5-5.1); SODIUM LEVEL 143 MEQ/L (136-145); TOTAL PROTEIN 7.8 GM/DL (6.4-8.2)
[2020-08-17] MEDS ORDERED: ISOVUE-370 76% 100ML VIAL As Ordered ONE (21:41)
[2020-08-17] MEDS ORDERED: GI COCKTAIL 50ML BTL(HYOSCYAMINE/MAALOX/LIDOCAINE VISCOUS)(1:3:1) PO ONE (21:45)
[2020-08-17] MEDS ORDERED: ONDANSETRON 4MG/2ML VIAL IV ONE (21:45)
--- OUTSIDE RECORDS SUMMARY | 2020-08-17 21:55 | CCD ---
Author Author [facility] Organization [facility] Address Unknown Phone Unavailable Care Team Providers Care Clinical Rehabilitation Liaison Name Role Phone Arnaldo De La Rosa [...] Arnaldo De La Rosa MD Unavailable Unavailable Arnalod De La Rosa MD Unavailable Unavailable Arnaldo De La Rosa MD Unavailable Unavailable EstrellaArnaldo [...] Unavailable Stephen GEORGES MD Unavailable Unavailable Stephen GEROGES MD Unavailable Unavailable Stephen GEORGES MD Unavailable [...] Miroslava ESCUDERO MD Unavailable Unavailable VANVALKENBURG, Miroslava ESCUEDRO MD Unavailable Unavailable VANVALKENBURG, Miroslava ESCUDERO MD [...] Unavailable VANVALMiroslava DONALDSON MD Unavailable Unavailable KRISTINAVALMiroslava DONALDSON MD Unavailable Unavailable VANVALKENMiroslava DOTSON MD Unavailable [...] Unavailable BOONE, A SANTOS MD Unavailable Unavailable BONOE, A SANTOS MD Unavailable Unavailable BOONE, A [...] A KELLEN DPM Unavailable Unavailable Arnaldo DAVIS [id number] Unavailable Unavailable OBEN, T SALVADOR MD Unavailable [...] Unavailable Unavailable Los MORSE MD Unavailable Unavailable oLs MORSE MD Unavailable Unavailable MINILos MAYES MD Unavailable Unavailable Los MORSE MD Unavailable Unavailable Los MORSE MD Unavailable Unavailable Los MORSE MD Unavailable Unavailable Los MORSE MD Unavailable Unavailable Los MORSE MD Unavailable Unavailable Los MORSE MD Unavailable Unavailable Los MORSE MD Unavailable Unavailable Los MORSE MD Unavailable Unavailable Los MORSE MD Unavailable Unavailable oLs MORSE MD Unavailable Unavailable Los MORSE MD [...] Unavailable Nieves TAMAYO MD Unavailable Unavailable Nieves TAAMYO MD Unavailable Unavailable Nieves TAMAYO MD Unavailable [...] Unavailable Unavailable Nieves TAMAYO MD Unavailable Unavailable BELKIS, Nieves JONES MD Unavailable Unavailable Nieves TAMAYO [...] Unavailable Unavailable Nieves TAMAYO MD Unavailable Unavailable VENENieves GARCIA MD Unavailable [...] MS, RPA-C Unavailable Unav ailable Bartoszewski, Therese Carmne MS, RPA-C Unavailable Unav ailable Bartoszewski, Therese [...] law may result in a fine or senior care sentence or both. A general authorization for the release of medical or other information is NOT sufficient authorization for further disc losure. Allergies and Adverse Reactions Type Description Substance Reaction Status Data Source(s ) No Known Food Allergies No Known Food Allergies [facility] Drug allergy CODEINE CODEINE [facility] Drug allergy NAPROXEN NAPROXEN [facility] Family History Family Member Name Family Member Gender Family Member Status Date o f Status Description Data Source(s) Unknown Condition [facility] Unknown Condition [facility] Unknown Condition [facility] Unknown Condition [facility] Unknown Condition [facility] Unknown Condition [facility] Unknown Condition [facility] Unknown Condition [facility] Unknown Condition [facility] Encounters Encounter Providers Location Date Indications Data Source(s ) Outpatient Attender: SANTOS SHOOK MD 11/28/2020 12:00:0 0 AM [facility] Unknown [address] [facility] [place] [address] 08/15/2020 12:00:00 AM EST eCW1 ([facility]) Unknown [address] [facility] [address] 08/10/2020 12:00:00 AM EST eCW1 ([facility]) Outpatient Attender: MADISON PEPE 07/17/2020 12:00:00 A M [facility] Outpatient Attender: KOTA SIERRA MD [id number] 06/28/2020 12:00:00 AM EST Primary osteoarthritis, right ankle and foot [facility] Primary osteoarthritis, right ankle and foot Outpatient Attender: MADISON PEPE 06/26/2020 12:00:00 A M [facility] [address] [address] 06/12/2020 12:00:00 AM EST eCW1 ([facility]) Outpatient Attender: SANTOS SHOOK MD [id number] 04/2020 12:00:00 AM EST - 06/06/2020 02:43:30 PM EST Post-traumatic bulbous urethral stricture [facility] Post-traumatic bulbous urethral strictur e Outpatient Attender: MADISON PEPE 06/05/2020 12:00:00 A M [facility] Outpatient Attender: Shannan Negrete MDConsultant: LETITIA HESTER MD 06/01/2020 01:00:00 PM [facility] - 06/01/2020 01:00:00 PM [facility] Outpatient Attender: MADISON PEPE 05/24/2020 12:00:00 A M [facility] [place] [address] [facility] [address] 05/22/2020 12:00:00 AM EDT eCW1 ([facility]) [place] [address] [facility] [address] 05/22/2020 12:00:00 AM EDT eCW1 ([facility]) [place] [address] [facility] [address] 05/18/2020 12:00:00 AM EDT eCW1 ([facility]) [place] [address] [facility] [address] 05/15/2020 12:00:00 AM EDT eCW1 ([facility]) Outpatient Attender: SANTOS SHOOK MD [id number] 12:00:00 AM EDT - 05/09/2020 02:16:06 PM [facility] Outpatient Referrer: ADITYA TANG 04/26/2020 12:00:00 AM EDT Primary osteoarthritis, right ankle and foot [facility] Primary osteoarthritis, right ankle and foot Outpatient Referrer: ADITYA TANG 04/26/2020 12:00:00 AM EDT Primary osteoarthritis, right ankle and foot [facility] Primary osteoarthritis, right ankle and foot Outpatient Attender: ADITYA TANG [id number] 04/26/2020 12:00:00 AM EDT Primary osteoarthritis, right ankle and foot [facility] Primary osteoarthritis, right ankle and foot Outpatient Attender: Shannan Negrete MDConsultant: LETITIA HESTER MD 04/20/2020 02:36:00 PM EDT - 04/20/2020 02:36:00 PM EDT [facility] Outpatient Attender: LETITIA HESTER MDConsultant: LETITIA Madison MD 04/05/2020 10:11:00 AM EDT - 04/05/2020 10:11:00 AM T [facility] Outpatient Attender: ALESHIA GEORGES MDConsultant: LETITIA Madison MD 03/29/2020 01:51:00 PM EDT - 03/29/2020 [facility] LETITIA HESTER MDConsultant: LETITIA Madison MD 03/27/2020 12:49:00 PM EDT - 03/27/2020 12:49:00 PM [facility] Outpatient Attender: KOTA SIERRA MD 03/24/2020 12: 00:00 AM [facility] Emergency Attender: CLEO GRUBERConsultant: LETITIA Madison MD 03/22/2020 03:26:00 PM EDT - 03/22/2020 05:25:00 PM [facility] Patient discharged. Outpatient Attender: ALTAGRACIA DAVIS [id number]: LETITIA HANSEN MD 03/20/2020 12:00:00 AM [facility] Outpatient Attender: KOTA SIERRA MD 03/15/2020 12: 00:00 AM [facility] Emergency Attender: HITESH MELGAR MDConsultant: LETITIA HESTER MD 03/09/2020 05:46:00 PM EDT - 03/10/2020 12:45:00 AM [facility] Patient discharged. Outpatient Attender: LETITIA HESTER MD Family Practice 02/23/2020 1 1:00:00 AM EDT [facility] ([facility]) Outpatient Attender: LETITIA HESTER MDConsultant: LETITIA Madison MD 02/23/2020 10:36:00 AM EDT - 02/23/2020 10:36:00 AM EDT [facility] Outpatient Attender: ROBERT TAMAYO MDReferrer: ROBERT TAMAYO MD MOB-MOB.PAT 02/04/2020 10:47:57 AM EDT - 02/04/2020 11:35:59 AM EDT [facility] Outpatient Attender: ROBERT TAMAYO MDReferrer: ROBERT TAMAYO MD MOB-MOB.PAT 02/04/2020 10:12:45 AM EDT - 02/04/2020 10:12:49 AM EDT [facility] SDC Attender: ROBERT TAMAYO MDAdmitter: ROBERT TAMAYO MD ES1-OR 02/02/2020 10:39:51 AM EDT - 02/09/2020 05:00:00 PM EDT [facility] Patient discharged. Outpatient Referrer: ROBERT TAMAYO MD 01/31/2020 01:06:48 P M EDT [facility] Emergency Attender: MILAGROS MORSE MDConsultant: LETITIA Madison MD 01/27/2020 11:08:00 AM EDT - 01/27/2020 01:46:00 PM EDT [facility] Patient discharged. Outpatient Attender: Lance De La Rosa MD Main Office 01/18/2020 02:15:00 PM EDT [facility] ([facility]) Outpatient Attender: LETITIA HESTER MDConsultant: LETITIA Madison MD 01/17/2020 09:33:00 AM EDT - 01/17/2020 10:33:00 AM EDT [facility] Emergency Attender: MILAGROS MORSE MDConsultant: LETITIA Madison MD 01/13/2020 01:42:00 PM EDT - 01/13/2020 05:54:00 PM EDT [facility] Patient discharged. Outpatient Attender: LETITIA HESTER MD Family Practice 01/12/2020 0 1:20:00 PM EDT [facility] ([facility]) Outpatient Attender: LETITIA HESTER MDConsultant: LETITIA Madison MD 01/12/2020 12:32:00 PM EDT - 01/12/2020 12:32:00 PM EDT [facility] Outpatient Attender: SALVADOR KAMARA MDConsultant: LETITIA HESTER MD 12/31/2019 08:45:00 AM EDT - 12/31/2019 11:35:00 AM EDT [facility] Patient discharged. Outpatient Attender: Carmen Biswas MS, RPA-CConsultan t: LETITIA HESTER MD 12/28/2019 09:05:00 AM EDT - 12/28/2019 09:15:00 AM EDT [facility] Patient discharged. Outpatient Attender: SALVADOR KAMARA MDConsultant: LETITIA HESTER MD 12/15/2019 11:32:18 AM EDT [facility] Outpatient Attender: ALESSIO SOTELO CDN, RDConsultant: LETITIA HESTER MD 12/14/2019 12:59:00 PM EDT - 12/14/2019 12:59:00 PM EDT [facility] Outpatient Attender: SALVADOR KAMARA MDConsultant: LETITIA HESTER MD 12/13/2019 02:57:37 PM EDT - 12/14/2019 12:20:00 PM EDT [facility] Patient discharged. Outpatient Attender: LETITIA HESTER MDConsultant: LETITIA Madisno MD 11/29/2019 10:16:00 AM EDT - 12/16/2019 08:54:00 AM EDT [facility] Patient discharged. Outpatient Attender: LETITIA HESTER MDConsultant: LETITIA Madison MD 11/25/2019 12:56:00 PM EDT - 11/25/2019 12:56:00 PM EDT [facility] Outpatient Attender: SALVADOR KAMARA MDConsultant: LETITIA HESTER MD 11/23/2019 11:13:00 AM EDT - 11/23/2019 11:13:00 AM EDT [facility] Outpatient Attender: SALVADOR KAMARA MD Family Practice 11/23/2019 08:15:0 0 AM EDT [facility] ([facility]) Outpatient Attender: LETITIA HESTER MDConsultant: LETITIA Madison MD 11/19/2019 10:35:00 AM EDT - 11/19/2019 11:36:00 AM EDT [facility] Outpatient Attender: LETITIA HESTER MD Family Practice 11/18/2019 0 3:00:00 PM EDT [facility] ([facility]) Outpatient Attender: LETITIA HESTER MDConsultant: PCP NO 11/18/2019 02:08:00 PM EDT - 11/18/2019 02:08:00 PM EDT [facility] Emergency Attender: YI CASSIDY MDConsultant: PCP NO 10/21/2019 03:31:00 PM EDT - 10/21/2019 05:41:00 PM EDT [facility] Patient discharged. Outpatient Attender: KOTA SIERRA MD 10/15/2019 12: 00:00 AM [facility] OutpatientEST-LEVEL 4 Attender: KELLEN PRIETO [facility] Pod[facility] y 10/06/2019 02:30:00 PM EDT - 10/06/2019 02:30:00 PM EDT Nail dystrophyUnspecified osteoarthritis, unspecified site [facility] ([facility]) Nail dystrophy Unspecified osteoarthritis, unspecified site Outpatient Attender: Kota Cristina: Kota Anderson MD 09/14/2019 03:48:00 PM EST - 09/14/2019 04:28:00 PM EST [facility] Outpatient Attender: Lance Boo: Kota collins MD 08/12/2019 01:49:00 PM [facility] Immunizations Vaccine Date Status Description Data Source(s) This CVX code allows reporting of a vacc ination when formulation is unknown (for example, when recording a Influenza vaccination when noted on a vaccination card) 07/19/2019 12:00:00 AM EST completed influenza, injectable , [facility] This CVX code allows reporting of a vacc ination when formulation is unknown (for example, when recording a Influenza vaccination when noted on a vaccination card) 07/19/2019 12:00:00 AM EST [facility] influenza, [facility] , [facility] Medications Medication Brand Name Start Date Product Form Dose Route Admi nistrative Instructions Pharmacy Instructions Status Indications Reaction Description Data Source(s[place] [facility] [place]DURABLE MEDICAL EQUIPMENT SEE SIG) XX [facility] 97 [id number] 06/28/2020 12:00:00 AM EST active Use as directed. Roll A Bout Knee Scooter Dx: [facility] Clindamycin 0.01 MG/MG Topical Gel Clindamycin Phospha te 1 % Clindamycin Phosphate 1 % 06/12/2020 12:00:00 AM EST 1.0 {application} active Clindamycin Phosphate 1 % eCW1 ([facility]) lidocaine (XYLOCAINE) 2 % urojet 20 mL [address]-5 0 01:30:00 PM EST 20 mL Urethral completed 20 mL, Urethr al, Once, 06/06/20 at 1330, For 1 dose [facility] Medication administered onsite Cephalexin 500 MG Oral Capsule cephALEXin (KEFLEX) cap gt 500 mg cephALEXin (KEFLEX) capsule 500 mg 06/06/2020 01:30:00 PM EST 500 mg Oral completed 500 mg, Oral, Once, 06/06/20 at 1330 , For 1 dose [facility] Medication administered onsite alclometasone dipropionate 0.5 MG/ML Top ical Cream Alclometasone Dipropionate 0.05 % Alclometasone Dipropionate 0.05 % 05/15/2020 12:00:00 AM EDT 1.0 {application} active Alclometasone Dipr opionate 0.05 % eCW1 ([facility]) ciclopirox 10 MG/ML Medicated Shampoo Ciclopirox 1 % Ciclopi oneil 1 % 05/15/2020 12:00:00 AM EDT 1.0 {application} active Ciclopirox 1 % eCW1 ([facility]) ciclopirox 10 MG/ML Medicated Shampoo Ciclopirox 1 % Ciclopi oneil 1 % 05/15/2020 12:00:00 AM EDT 1.0 {application} active Ciclopirox 1 % eCW1 ([facility]) Doxycycline Monohydrate 50 MG Oral Capsule Doxycycline Monoh ydrate 50 MG 05/15/2020 12:00:00 AM EDT 1.0 {capsule} active Doxycycline Monohydrate 50 MG eCW1 ([facility]) alclometasone dipropionate 0.5 MG/ML Top ical Cream Alclometasone Dipropionate 0.05 % Alclometasone Dipropionate 0.05 % 05/15/2020 12:00:00 AM EDT 1.0 {application} active Alclometasone Dipr opionate 0.05 % eCW1 ([facility]) Doxycycline Monohydrate 50 MG Oral Capsule Doxycycline Monoh ydrate 50 MG 05/15/2020 12:00:00 AM EDT 1.0 {capsule} active Doxycycline Monohydrate 50 MG eCW1 ([facility]) alclometasone dipropionate 0.5 MG/ML Top ical Cream Alclometasone Dipropionate 0.05 % Alclometasone Dipropionate 0.05 % 05/15/2020 12:00:00 AM EDT 1.0 {application} active Alclometasone Dipr opionate 0.05 % eCW1 ([facility]) ciclopirox 10 MG/ML Medicated Shampoo Ciclopirox 1 % Ciclopi oneil 1 % 05/15/2020 12:00:00 AM EDT 1.0 {application} active Ciclopirox 1 % eCW1 ([facility]) alclometasone dipropionate 0.5 MG/ML Top ical Cream Alclometasone Dipropionate 0.05 % Alclometasone Dipropionate 0.05 % 05/15/2020 12:00:00 AM EDT 1.0 {application} active Alclometasone Dipr opionate 0.05 % eCW1 ([facility]) ciclopirox 10 MG/ML Medicated Shampoo Ciclopirox 1 % Ciclopi oneil 1 % 05/15/2020 12:00:00 AM EDT 1.0 {application} active Ciclopirox 1 % eCW1 ([facility]) Doxycycline Monohydrate 50 MG Oral Capsule Doxycycline Monoh ydrate 50 MG 05/15/2020 12:00:00 AM EDT 1.0 {capsule} active Doxycycline Monohydrate 50 MG eCW1 ([facility]) Doxycycline Monohydrate 50 MG Oral Capsule Doxycycline Monoh ydrate 50 MG 05/15/2020 12:00:00 AM EDT 1.0 {capsule} active Doxycycline Monohydrate 50 MG eCW1 ([facility]) Docusate Sodium 100 MG Oral Capsule [DOK] DOK 100 MG O ral Capsule DOK 100 MG Oral Capsule 04/07/2020 12:00:00 AM EDT 100 mg Oral activ e Take 100 mg by mouth daily [facility] Desvenlafaxine Succinate ER 100 MG Oral Tablet Extended Release 24 Hour (PRISTIQ) 4909-7054-01 04/07/2020 12:00:00 AM EDT Oral active Take by mouth daily [facility] Nystatin 100 UNT/MG Topical Powder Nysta tin 296228 UNIT/GM External Powder (MYCOSTATIN) Nystatin [id number] UNIT/GM External Powder (MYCOSTATIN) 0 03/27/2020 12:00:00 AM EDT active APPLY TO AFFECTED AREA S TWO TIMES A DAY ABDOMINAL FOLDS [facility] heparin (porcine) injection 5,000 Units 79202-741-34 02/09/20 05:00:00 PM EDT 5000 U Subcutaneous active 5,000 Units , Subcutaneous, Every 8 hours (scheduled), First dose on Fri02/09/20 at 1700, Post-op
If platelet count is less than 100,000 or hematocrit is less than 25, or if there is a 5 point decrea se in hematocrit, do not give the dose and call physician/designee.
[facility] Medication administered onsite dextrose 5 % and sodium chloride 0.9 % infusion 2189-2208-21 02/09/2020 05:00:00 PM EDT Intravenous active at 1 00 mL/hr, Intravenous, Continuous, Starting Fri02/09/20 at 1700, Post-op
Hep lock with good PO
[facility] Medication administered onsite Oxycodone Hydrochloride 5 MG Oral Tablet oxyCODONE (ROXICODONE) immediate release tablet 5 mg oxyCODONE (ROXICODONE) immediate release tablet 5 mg 02/09/2020 04:27:42 PM EDT 5 mg Oral active 5 mg, Oral, Every 4 hours PRN, moderate pain (4-6), Starting Fri02/09/20 at 1627, For 7 days, Post-op [facility] Medication administered onsite ondansetron (ZOFRAN) injection 4 mg 54402-779-74 02/09/2020 04:27:4 2 PM EDT 4 mg Intravenous active 4 mg, In travenous, Every 6 hours PRN, nausea, vomiting, Starting Fri02/09/20 at 1627, Post-op [facility] Medication administered onsite Magnesium Chloride 0.41280 MEQ/ML / Pota ssium Chloride 0.0497 MEQ/ML / Sodium Acetate 0.0163 MEQ/ML / Sodium Chloride 0.0899 MEQ/ML / Sodium gluconate 5.02 MG/ML Injectable Solution [Normosol-R] electrolyte-R (NORMOSOL-R/PLASMALYTE-R) solution electrolyte-R (NORMOSOL-R/PLASMALYTE-R) solution 02/08 04:00:00 PM EDT Intravenous active at 1 00 mL/hr, Intravenous, Continuous, Starting Fri02/09/20 at 1600, PACU & Post-op [facility] Medication administered onsite normal saline flush 0.9 % injection 3 mL [id number] 02/09/2020 04:00:00 PM EDT 3 mL Intravenous active 3 mL , Intravenous, Every 8 hours (scheduled), First dose on Fri02/09/20 at 1600, PACU (only)
flush per protocol, D/C Main IV fluid if appropriate
[facility] Medication administered onsite 10 ML Atropine Sulfate [...] or 0.04 mg/kg. Max of 6 doses
[facility] Medication administered onsite fentaNYL Citrate (PF) (SUBLIMAZE) injection 25 mcg [id number] -[id number] 02/09/2020 02:45:03 PM EDT 25 ug Intravenous completed 25 mcg, Intravenous, Every 5 min PRN, moderate pain (4-6), Starting Fri02/09/20 at 1445, For 4 doses, PACU (only) [facility] Medication administered onsite normal saline flush 0.9 % injection 3 mL [id number] 02/09/2020 02:00:00 PM EDT 3 mL Intravenous active 3 mL , Intravenous, Every 8 hours (scheduled), First dose on Fri02/09/20 at 1400, Pre-op
Rapid push positive pressure flushing shall be performed with a 10 cc normal saline syringe to check the PATENCY of a PIV site prior to any infusion therapy initiation unless resistance is met.
[facility] Medication administered onsite Oxycodone Hydrochloride 5 MG Oral Tablet oxyCODONE (ROXICODONE) 5 MG immediate release tablet oxyCODONE (ROXICODONE) 5 MG immediate release tablet 0 02/09/2020 12:00:00 AM EDT 5 mg Oral active Take 1 tablet (5 mg total) by mouth every 6 (six) hours as needed for pain Max Daily Amount: 20 mg [facility] Levetiracetam 500 MG Oral Tablet [Keppra] Keppra 01/20/2020 12:00 :00 AM EDT ORAL active [facility] ([facility]) montelukast 10 MG Oral Tablet Montelukast Sodium 11/22/2019 12:00:00 AM EDT ORAL active [facility] ([facility]) Docusate Sodium 100 MG Oral Capsule [Colace] Colace 12:00:00 AM EDT ORAL active [facility] ( [facility]) 750 mg 09/14/2019 12:00:00 AM EST [...] 08/30/2019 09:14:43 AM EST 15 MG active [facility] Methocarbamol 750 MG Oral Tablet Methocarbamol 08/30/2019 09:12:29 AM EST 750 MG active [facility] 750 mg 08/30/2019 12:00:00 AM [...] 09:11:55 AM EST 50 MG active [facility] cetirizine hydrochloride 10 MG Oral Capsule Cetirizine Cetir izine 08/19/2019 09:11:50 AM EST 10 MG active [facility] 10 mg 08/19/2019 12:00:00 AM EST [...] Topiramate 020 02:39:04 PM EST 200 MG [facility] 750 mg 07/18/2019 12:00:00 AM EST [...] 07/13/2019 03:23:25 PM EST 750 MG completed [facility] 750 mg 07/06/2019 12:00:00 AM EST tablet 60 TAKE ONE TABLET BY MOUTH FOUR TIMES A DAY TAKE ONE TABLET BY MOUTH FOUR TIMES A DAY SOLD: 07/06/2019 [facility] Methocarbamol 750 MG Oral Tablet Methocarbamol 07/05/2019 04:44:44 PM EST 750 MG completed [facility] 100 mg 06/04/2019 12:00:00 AM EST tablet [...] Methocarbamol 06/03/2019 08:54:31 AM EST 750 MG [facility] Mirtazapine 15 MG Oral Tablet Mirtazapine 06/01/2019 02:30:05 PM EST 15 MG completed [facility] 15 mg 06/01/2019 12:00:00 AM EST tablet 30 TAKE ONE TABLET BY MOUTH EVERY DAY TAKE ONE TABLET BY MOUTH EVERY DAY SOLD: 07/26/2019 [facility] 15 mg 06/01/2019 12:00:00 AM EST tablet 30 TAKE ONE TABLET BY MOUTH EVERY DAY TAKE ONE TABLET BY MOUTH EVERY DAY SOLD: 06/30/2019 [facility] Methylprednisolone Methylprednisolone 05/31/2019 06:14:06 PM EST 0 completed [facility] cetirizine hydrochloride 10 MG Oral Capsule Cetirizine Cetir izine 05/17/2019 09:13:30 AM EDT 10 MG completed [facility] Doxycycline Monohydrate 50 MG Oral Capsule Doxycycline Monoh ydrate 05/17/2019 09:13:09 AM EDT 50 MG completed [facility] 600 mg 05/17/2019 12:00:00 AM [...] 019 12:59:00 PM EDT 200 MG completed [facility]. Devices (DURABLE MEDICAL EQUIPMENT SEE SIG) [facility] [id number] 10/09/2018 12:00:00 AM EDT aborted Use as directed. Rolling walker with seat Dx: Right ankle arthritis [facility] gabapentin 100 MG Oral Capsule gabapentin (NEURONTIN) 100 MG capsule gabapentin (NEURONTIN) 100 MG capsule 03/03/2018 12:00:00 AM EDT 100 mg Oral aborted Take 100 mg by mouth Daily [facility] maalox/lidocaine/diphenhydrAMINE (RADIATION MIXTURE) 1:1:1 o ral suspension 05/29/2017 12:00:00 AM EDT 10 mL Swish & Spit aborted Swish and spit 10 mLs every 2 (two) hours as needed (For Mouth Pain)Pharmacy compound: Maalox, lidocaine viscous 2 %, Benadryl 12.5 mg/5 mL [facility] PARoxetine (PAXIL) 30 MG tablet [id number] 30 mg Oral aborted Take 30 mg by mouth every morning [facility] Melatonin 3 MG Oral Tablet melatonin 3 MG tablet melatonin 3 MG table t 5 mg Oral aborted Take 5 mg by m outh nightly Indications: Pt takes two tabs nightly [facility] doxycycline hyclate 50 MG Oral Capsule doxycycline ( BRAMYCIN) 50 MG capsule doxycycline (VIBRAMYCIN) 50 MG capsule 100 mg Oral aborted Take 100 mg by mouth every morning [facility] Insurance Providers Payer name Policy type / Coverage type Policy ID Covered green party ID Covered green party's relationship to [place] Policy [place] Plan Information [facility] COMMUN[facility] MCDHMO [id number] SP [id number] [employer] COMMUNITY PLAN MCDHMO [id number] SP [id number] UNHC COMMUNITY PLAN MCDHMO [id number] SP [id number] UHC I [id number] Self [id number] UHC COMMUNTY PLAN [id number] UNHC COMMUNITY PLAN XIX [id number] UNHC COMMUNITY PLAN MCDHMO [id number] SP [id number] [facility] MEDICAID [id number] [facility] MEDICAID [id number] Sep[place]h [id number] INSURANCE COVID-19 COVID Sepide[place] C OVID INSURANCE COVID-19 [id number] [employer]UE [employer] BLUE SHIELD-O/P [id number] [employer]HC COMMUNITY PLAN XIX -RECURRING [id number] [facility] Community Plan [id number] 99 [id number] STPP Wrap [id number] UnitedHealthcare Other 0 Self 0 UnitedHealthcare Other 0 Self 0 UnitedHealthcare Other 0 Self 0 [facility] MEDICAID PI PI MEDICAID [id number] Sepideh [id number] UnitedHealthcare Other 0 Self 0 UnitedHealthcare Other 0 Self 0 UnitedHealthcare Other 0 Self 0 [place] Medig[place] [id number] Self [id number] Hmo Blue Option/Medicaid Health Maintenance Organization (HMO) [id number] Self [id number] [facility] Health Maintenance Organization (HMO) [id number] Self [id number] [place] [id number] Self [id number] Hmo Blue Option/Medicaid Health Maintenance Organization (HMO) [id number] Self [id number] Medicaid Medicaid [id number] Self [id number] [facility] Commercial [id number] Self [id number] [place] [id number] Family Dependent [id number] [facility] Community Plan Commercial [id number] Self [id number] UnitedHealthcare Other 0 Self 0 UNHC COMMUNITY PLAN [id number] SP [id number] [place] [id number] Self [id number] Hmo Blue Option/Medicaid Health Maintenance Organization (HMO) [id number] Self [id number] [employer] Paul/MCR Health Maintenance Organization (HMO) [id number] Self [id number] Community Plan - [facility] Commercial [id number] Self [id number] Community Plan - [facility] Commercial [id number] Self [id number] UnitedHealthcare Other 0 Self 0 Medicaid [id number] Community Plan - [facility] Commercial [id number] Self [id number] [facility] [id number] Community Plan - [facility] Commercial Self United Healthcare Paul/MCR Medigap [place] B Self Hmo Blue Option/Medicaid Health Maintenance Organization (HMO) Self [facility] Care [facility] [id number] UHC PLUS [facility] COMMUNITY PLAN [id number] SELF [id number] [employer] PAUL [id number] SELF [id number] [facility] [id number] Patient [id number] [facility] [id number] Patient [id number] SELF PAY UNAVAILABLE SELF UNAVAILA BLE Medicaid Medicaid Self [facility]-Community Plan Commercial Self MEDICAID M [id number] Self [id number] UNITED HEALTHCARE(MCAID) P [id number] S [id number] [facility](MCAID) P [id number] S [id number] UNITED HEALTHCARE(MCAID) P [id number] S [id number] [facility] MEDICAID 7 [id number] 1 [id number] SELFPAY 5 UNAVAILABLE 1 UNAVAILA BLE MEDICAID 3 [id number] BLUE CHOICE OPTIONS 7 [id number] MEDICAID W [id number] S [id number] BLUE CHOICE OPTION O [id number] S [id number] [facility] [id number] SP [id number] [facility] [id number] SP [id number] MEDICAID [id number] SP [id number] HMO BLUE [id number] FA2 [id number] O UNAVAILABLE UNAVAILA BLE Problems, Conditions, and Diagnoses Code Display Name Description Problem Type Effective Dates Data Source(s) J45.20 848792995 Mild intermittent asthma without complica tion Problem 08/03/2020 12:00:00 AM EST eCW1 (Formerly [facility]) Z68.43 971778414 BMI 50.0-59.9, adult Problem 08/03/2020 12:0 0:00 AM EST eCW1 (Formerly [facility]) G47.33 [id number] Obstructive sleep apnea Problem 08/03/2020 1 2:00:00 AM EST eCW1 (Formerly [facility]) G40.909 [id number] Seizure disorder Problem 08/03/2020 12:00:00 AM EST eCW1 (Formerly [facility]) [id number] Abdominal pain Abdominal pain Problem 01/18/2020 12:00: 00 AM EDT [facility] ([facility]) [id number] Essential hypertension Essential hypertension Problem 11/18/2019 12:00:00 AM EDT [facility] ([facility]) S92.101S Unspecified fracture of right talus, seq uela Unspecified fracture of right talus, sequela Diagnosis 06/28/2020 07:03:06 AM [facility] M19.071 Primary osteoarthritis, right ankle and foot Primary osteoarthritis, right ankle and foot Diagnosis 06/28/2020 07:03:06 AM [facility] I78238 Encounter for other preprocedural examin ation Encounter for other preprocedural examination Diagnosis 04/20/2020 02:36:00 PM EDT [facility] H6123 Impacted cerumen, bilateral Impacted cerumen, bilatera l Diagnosis 04/05/2020 10:11:00 AM EDT [facility] R1033 Periumbilical pain Periumbilical pain Diagnosis 08/2019 01:51:00 PM EDT [facility] H6122 Impacted cerumen, left ear Impacted cerumen, left ear Diagnosis 03/27/2020 12:49:00 PM EDT [facility] Z6843 Body mass index (BMI) 50.0-59.9, adult B santos mass index (BMI) 50.0-59.9, adult Diagnosis 03/27/2020 12:49:00 PM EDT [facility] E669 Obesity, unspecified Obesity, unspecified Diagnosis 03/27/2020 12:49:00 PM EDT [facility] R569 Unspecified convulsions Unspecified convulsions Diagno sis 03/27/2020 12:49:00 PM EDT [facility] B372 Candidiasis of skin and nail Candidiasis of skin and n ail Diagnosis 03/27/2020 12:49:00 PM EDT [facility] R1030 Lower abdominal pain, unspecified Lower abdomina l pain, unspecified Diagnosis 03/27/2020 12:49:00 PM EDT [facility] E48787 Unspecified asthma, uncomplicated Unspecified as thma, uncomplicated Diagnosis 03/22/2020 03:26:00 PM EDT [facility] G8929 Other chronic pain Other chronic pain Diagnosis 03:26:00 PM EDT [facility] M49695 Personal history of nicotine dependence Personal history of nicotine dependence Diagnosis 03/09/2020 05:46:00 PM EDT [facility] K2970 Gastritis, unspecified, without bleeding Gastritis, unspecified, without bleeding Diagnosis 03/09/2020 05:46:00 PM EDT [facility] R109 Unspecified abdominal pain Unspecified abdominal pain Diagnosis 03/09/2020 05:46:00 PM EDT [facility] R631 Polydipsia Polydipsia Diagnosis 02/23/2020 10:36:00 AM ED T [facility] R358 Other polyuria Other polyuria Diagnosis 02/23/2020 10:36: 00 AM EDT [facility] J449 Chronic obstructive pulmonary disease, u nspecified Chronic obstructive pulmonary disease, unspecified Diagnosis 02/23/2020 10:36:00 AM EDT [facility] K43.2 Incisional hernia without obstruction or gangrene Incisional hernia without obstruction or Diagnosis 02/09/2020 08:51:00 AM EDT [facility] K43.0 Incisional hernia with obstruction, with out gangrene Incisional hernia with obstruction, with Diagnosis 02/09/2020 08:51:00 AM EDT [facility] J98.8 Other specified respiratory disorders Ot her specified respiratory disorders Diagnosis 02/04/2020 10:12:45 AM EDT [facility] U07.1 COVID-19 COVID-19 Diagnosis 02/04/2020 10:12:45 AM ED T [facility] K429 Umbilical hernia without obstruction or gangrene Umbilical hernia without obstruction or gangrene Diagnosis 01/27/2020 11:08:00 AM [facility] J74750 Epilepsy, unspecified, not intractable, without status epilepticus Epilepsy, unspecified, not intractable, without status epilepticus Diagnosis 01/13/2020 01:42:00 PM [facility] 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, thoracolumbar region Spondylolysi s, thoracolumbar region Diagnosis 01/12/2020 12:32:00 PM [facility] R0789 Other chest pain Other chest pain Diagnosis 01/12/2020 12 :32:00 PM [facility] Y76151 Other urethral stricture, male, unspecif ied site Other urethral stricture, male, unspecified site Diagnosis 12/31/2019 08:45:00 AM [facility] R3121 Asymptomatic microscopic hematuria Asymptomatic microscopic hematuria Diagnosis 12/31/2019 08:45:00 AM [facility] Z1159 Encounter for screening for other viral diseases Encounter for screening for other viral diseases Diagnosis 12/28/2019 09:05:00 AM [facility] Z713 Dietary counseling and surveillance Dietary coun seling and surveillance Diagnosis 12/14/2019 12:59:00 PM [facility] R99 Ill-defined and unknown cause of mortali ty Ill-defined and unknown cause of mortality Diagnosis 12/14/2019 12:20:00 PM [facility] M6281 Muscle weakness (generalized) Muscle weakness (general ized) Diagnosis 11/29/2019 10:16:00 AM [facility] M545 Low back pain Low back pain Diagnosis 11/29/2019 10:16:00 AM [facility] E785 Hyperlipidemia, unspecified Hyperlipidemia, unspecifie d Diagnosis 11/25/2019 12:56:00 PM [facility] K5900 Constipation, unspecified Constipation, unspecified Di agnosis 11/25/2019 12:56:00 PM [facility] K219 Gastro-esophageal reflux disease without esophagitis Gastro-esophageal reflux disease without esophagitis Diagnosis 11/25/2019 12:56:00 PM ED [facility] S52584 Other spondylosis, thoracic region Other spondyl osis, thoracic region Diagnosis 11/19/2019 10:35:00 AM EDT [facility] Z21207 Other spondylosis, lumbar region Other spondylos is, lumbar region Diagnosis 11/19/2019 10:35:00 AM EDT [facility] Z1331 Encounter for screening for depression E ncounter for screening for depression Diagnosis 11/18/2019 02:08:00 PM EDT [facility] J309 Allergic rhinitis, unspecified Allergic rhinitis, unsp ecified Diagnosis 11/18/2019 02:08:00 PM EDT [facility] R310 Gross hematuria Gross hematuria Diagnosis 10/21/2019 03:3 1:00 PM EDT [facility] R300 Dysuria Dysuria Diagnosis 10/21/2019 03:31:00 PM ED T [facility] Surgeries/Procedures Procedure Description Date Indications Data Source(s) SURGERY CASE REQUEST OUTSIDE FACILITY ONLY SURGERY CA SE REQUEST OUTSIDE FACILITY ONLY Routine 06/28/2020 1:27 PM EST Arthritis of right subtalar joint Closed displaced fracture of right talus, unspecified fracture morphology, sequela 06/28/2020 01:27:23 PM EST Closed displa loyd fracture of right talus, unspecified fracture morphology, sequelaArthritis of right subtalar joint [facility] Closed displaced fracture of right talus , unspecified fracture morphology, sequela Arthritis of right subtalar joint BLOOD TYPING ABO TYPE AND SCREEN Routine 02/09/2020 12:30 PM EDT 02/09/2020 04:30:00 PM EDT [facility] ECG ROUTINE ECG W/LEAST 12 LDS TRCG ONLY W/O I&R ECG 12-LEAD Routine 02/04/2020 11:34 AM EDT Incisional hernia with obstruction 02/04/2020 03:34:20 PM ED T Incisional hernia with obstruction [facility] Incisional hernia with obstruction BLOOD COUNT COMPLETE AUTOMATED CBC Routine 0 11:30 AM EDT Incisional hernia with obstruction 02/04/2020 03:30:00 PM ED T Incisional hernia with obstruction [facility] Incisional hernia with obstruction BASIC METABOLIC PANEL CALCIUM TOTAL BASIC METABOLIC PANEL Routi ne 02/04/2020 11:30 AM EDT Incisional hernia with obstruction 02/04/2020 03:30:00 PM ED T Incisional hernia with obstruction [facility] Incisional hernia with obstruction Medical Nutrition Therapy Assmnt Interv Face To Face 15 Min 12/14/2019 12:00:00 AM EDT [facility] ([facility]) Brief Emotional/Behav Assessment W/ Scoring Doc Per Standard Inst 11/18/2019 12:00:00 AM EDT [facility] ([facility]) EST-LEVEL 4 10/06/2019 12:00:00 AM EDT - 10/06/2019 1 2:00:00 AM EDT [facility] ([facility]) Debridement, nails, 6 or more, any method 10/06/2019 12:00:00 AM EDT - 10/06/2019 12:00:00 AM EDT [facility] ([facility]) Results ID Date Data Source [id number] 08/09/2020 02:33:00 PM EST [facility] Name Value Range Interpretation Code Description Data Giovana rce(s) Supporting Document(s) SARS-CoV-2 (COVID 19) NEGATIVE - SARS-CoV-2 (COVID19) [facility] This lab was ordered by [facility] a nd reported by [facility]. ID Date Data Source [id number] 07/31/2020 05:40:00 PM EST [facility] Name Value Range Interpretation Code Description Data Giovana rce(s) Supporting Document(s) SARS coronavirus 2 RNA [Presence] in Res piratory specimen by TYRON with probe detection [facility] This lab was ordered by [facility] a nd reported by [facility]. ID Date Data Source [id number] 06/28/2020 01:51:39 PM EST [facility] Name Value Range Interpretation Code Description Data Giovana rce(s) Supporting Document(s) Progress Note [facility] EIGSKe5oPdMCVcEh95/UYRklFVDna2UbVJbfWWc3SMpiCDWmZ1RvRQA7kT3eFXL4KAfKNoJkKvQaFgPd [facility] [file] ICAgICAgICAgICAgICAgICAgICAgICAgICAgICAgICAgICAgICAgICAgICAgICAgICAgICAgICAgICAg ICAgICAgICAgICAgICAgICAgICAgICANCiAgICAgIC AgICAgICAgICAgICAgICAgICAgICAgICAgICAgICAgICAgICAgICAgICAgICAgICAgICAgICAgICAgIC AgICAgICAgICAgICAgICAgICAgICAgICAgICAgICAgICANCiAgICAgICAgICAgICAgICAgICAgICAgIC AgICAgICAgICAgICAgICAgICAgICAgICAgICAgICAg ICAgICAgICAgICAgICAgICAgICAgICAgICAgICAgICAgICAgICAgICAgICANCiAgICAgICAgICAgICAg ICAgICAgICAgICAgICAgICAgICAgICAgICAgICAgICAgICAgICAgICAgICAgICAgICAgICAgICAgICAg ICAgICAgICAgICAgICAgICAgICAgICAgICANCiAgIC AgICAgICAgICAgICAgICAgICAgICAgICAgICAgICAgICAgICAgICAgICAgICAgICAgICAgICAgICAgIC AgICAgICAgICAgICAgICAgICAgICAgICAgICAgICAgICAgICANCiAgICAgICAgICAgICAgICAgICAgIC AgICAgICAgICAgICAgICAgICAgICAgICAgICAgICAg ICAgICAgICAgICAgICAgICAgICAgICAgICAgICAgICAgICAgICAgICAgICAgICANCiAgICAgICAgICAg ICAgICAgICAgICAgICAgICAgICAgICAgICAgICAgICAgICAgICAgICAgICAgICAgICAgICAgICAgICAg ICAgICAgICAgICAgICAgICAgICAgICAgICAgICANCi AgICAgICAgICAgICAgICAgICAgICAgICAgICAgICAgICAgICAgICAgICAgICAgICAgICAgICAgICAgIC AgICAgICAgICAgICAgICAgICAgICAgICAgICAgICAgICAgICAgICANCiAgICAgICAgICAgICAgICAgIC AgICAgICAgICAgICAgICAgICAgICAgICAgICAgICAg ICAgICAgICAgICAgICAgICAgICAgICAgICAgICAgICAgICAgICAgICAgICAgICAgICANCiAgICAgICAg ICAgICAgICAgICAgICAgICAgICAgICAgICAgICAgICAgICAgICAgICAgICAgICAgICAgICAgICAgICAg ICAgICAgICAgICAgICAgICAgICAgICAgICAgICAgIC ANCjw/oNHfP8moqPKokjI4R7dhSo3GKc9SVO6sj9KcLGPtLAlbjjBbWcpDCvPpPTZxXbwRSwp2ZXvdVE 1NuDPoW5AyE9KdGVnfZH2ZZRYnAQGgmHViMUMrZQAfHgE7YOHgRUpdZP0VtTQhWLrmJSKbUPYeMeRjWN LdQH8BBBFmC548naDsIm5VZo1TKnOjUS0ngv2RQrdb ZPFpPjuFOcw9HEycJC7FtOTleQKsSBVcFYTLDwOuM2ljv0PgDapoXMDQKYpyFS4Kn5QkfATuCLc+Pg0K TG5vb9UtTGtwBJQjED5gye1AEWdGLmRvD9VkzPlsFXIgv0aqKPPuIY2nvLJgHEN7EZPhw5T3WG4eArCk goXni9SeGqElSuwbEKAvHBLqJSXhZb5lYFEnTJQhYo UbXUDSER7JLQLyWMIrkEMySWRzSHEKDW4ASJfkIES6VEAyfvAobFLmLHmkOQ7KXTAuffQmGfnjGIFULP o+Kj9IUO3ww9FpWQiyBIAbNI0iny5PGYbJGbEeA4D2iEZjC0A0SHwuQw3FKYHfLBJjChOcGOFDIIiwMW 0AOC3nibR0UJ7HxGAvZFReUWGtfGIuZPr9B19cdEWi WMrkFU9XZEI+Jey+Bf8WDETlKEVdVOCoFxCxKCXCOgGdR8CnC6JUd1VqR3TtWP81pAreibNzAGwyVO4L US6jKAShWTCSIP5AfPJanH3jxmSuVpGlMDPNDiIiX10gmBPcOEDqXHH5KPMzSb8BMOSaV1WswcPxaUui deTmOQVlKKEJBK5RERlpnlIyzALhxTddBH69oMgpCI 7QQn1OYhBxZK2ckw9XbZRtVf7IHCYtWD6XCWLrFBLcVBJuNAP2VRAeLqLkKDvyHHXyOLYeTOS1DYJqAH TaAN5CLdXoGUUlXqK4PJGtSIBtANDmcq0TCJTxVTHfHnI8NwZeEOWtXPStSFlbMJOvKCJdXIH1PBRtCZ KeZY2HPrVaMXOaMZL2QIYmGHOcPTBcfn3PNXZjSSEc ZXA0YkVvEIAiCCJwHWodFARwJJX9MAOoFFZzNUJzMR8FTrOsMGQdHRruLVGbCZKtQDUnpp7BMHTkSHDs MLT7TaWaEUYiNEIdVScyQIEmSIL9KaU1ETPrXAOlBA2CHiXwIAKdDVz1KDUdZAUbXVDxzc8ZLPAdUVHn ZSO7UGZlISNeCUIyDMpdVWGeERR7WmRyEHXrFJKuGH 6IVfGyYJKtWLx5TJmxSGEzFXKufx3GYNJyEKTwHDM1RGWfZYFcTJVmGLifSMAwJVLtGWPiULLkXDZcNZ 2FAwDvQOCfMzB6FajnSRPePJGmed9ALTLzGEYxLhZkQRRgVRKlQABaXBwyGOVcRAZsYNI1USFaEHEpAZ 2BVxBgWMJaEkAsWMdiDOIfQRRgzp8BHUSuEWZdYeE3 OLPbFQZvPTGpWOoeJHLtRHKoUOk1JMMgYCXuAZ6XTqImJRSvQgD5HGyeNUCvRRRzjg6XOAIcMVQgDPGv LzFqJAEkBOYiLTwlLUGxSWD2Fnf0TFLkJKGzAY2LNgHyAZQnQaExNQpyDJWdZXUzsz3ZUWOaPRSeEhI6 YWNuIVAoYVRcVAneBOUpIGM2KcZePRVuHDLiXG1ELk CbHFMnXgG1SDgvBIJwAQLtaa6MyETjfVkdlr7EQSpAJt0SeDesYLEqQMdpQe4aiTEwPLPlKHSVUg9Rdd ArFMQlYAYXPQcjNUQpVGXrShNrGmIjPoI0VOYdHXN8TONtCzqpMcQmFeTvERAtHqB8MUQwVHDsQJRgSQ ZuV9HvErvfIGNpPAK9TGWxODE0LaC+OK7mHZv+Cy9Us5EetaL7wcHjFMeeTvRdJs7ZRPZMV9BMFj== ID Date Data Source [id number] 06/06/2020 03:12:[address] [facility] Name Value Range Interpretation Code Description Data Giovana rce(s) Supporting Document(s) Progress Note [facility] ALTYCj5mLdOBCpKm26/UCUdgJRYwz8ViFEhkNOa5MHxiWYGrL9YeILG8dR4nYKO6YMxOKaTaAsQmWUKe lbm [file] ICAgICAgICAgICAgICAgICAgICAgICAgICAgICAgICAgICAgICAgICAgICAgICAgICAgDQogICAgICAg ICAgICAgICAgICAgICAgICAgICAgICAgICAgICAgIC AgICAgICAgICAgICAgICAgICAgICAgICAgICAgICAgICAgICAgICAgICAgICAgICAgICAgICAgICAgIC AgDQogICAgICAgICAgICAgICAgICAgICAgICAgICAgICAgICAgICAgICAgICAgICAgICAgICAgICAgIC AgICAgICAgICAgICAgICAgICAgICAgICAgICAgICAg ICAgICAgICAgICAgDQogICAgICAgICAgICAgICAgICAgICAgICAgICAgICAgICAgICAgICAgICAgICAg ICAgICAgICAgICAgICAgICAgICAgICAgICAgICAgICAgICAgICAgICAgICAgICAgICAgICAgDQogICAg ICAgICAgICAgICAgICAgICAgICAgICAgICAgICAgIC AgICAgICAgICAgICAgICAgICAgICAgICAgICAgICAgICAgICAgICAgICAgICAgICAgICAgICAgICAgIC AgICAgDQogICAgICAgICAgICAgICAgICAgICAgICAgICAgICAgICAgICAgICAgICAgICAgICAgICAgIC AgICAgICAgICAgICAgICAgICAgICAgICAgICAgICAg ICAgICAgICAgICAgICAgDQogICAgICAgICAgICAgICAgICAgICAgICAgICAgICAgICAgICAgICAgICAg ICAgICAgICAgICAgICAgICAgICAgICAgICAgICAgICAgICAgICAgICAgICAgICAgICAgICAgICAgDQog ICAgICAgICAgICAgICAgICAgICAgICAgICAgICAgIC AgICAgICAgICAgICAgICAgICAgICAgICAgICAgICAgICAgICAgICAgICAgICAgICAgICAgICAgICAgIC AgICAgICAgDQogICAgICAgICAgICAgICAgICAgICAgICAgICAgICAgICAgICAgICAgICAgICAgICAgIC AgICAgICAgICAgICAgICAgICAgICAgICAgICAgICAg ICAgICAgICAgICAgICAgICAgDQogICAgICAgICAgICAgICAgICAgICAgICAgICAgICAgICAgICAgICAg ICAgICAgICAgICAgICAgICAgICAgICAgICAgICAgICAgICAgICAgICAgICAgICAgICAgICAgICAgICAg SHi2W0ryNUDwELOzGI4yLRb3Ge9+WKiUQuWbHYQ9tu WneM4WVV4vg9KaXDmkFMSci6XiJTf0EH7VITIqYIxfUG2PEKawhy9JKUTjCFSnaEWWi8gnBxOtNSB7CZ NqByuwSH2ZZBUyZ6nfdqApMYHjTXZDWBgjCMZWTN4FFoObY6JulX34IMLJDh7+DQplbmRvYmoNCjIxID Aal1ZlMOx3GC1QDZErZqaau3YvMiIfRZREJXwgMH7F AYD6SOIxNFZvRc1HWMGrW903ukHmYZ6CMs9LXkAqEY6igk7OKmGcEDSqFrqEEtv5EGfkAE4PuFBlRHuK qn8kxuZpzqXZe0KqmnPocXGBnUIhvXSlDBrjBSTXRRHcaDPlTQ0gFM4yREWyBGSyGyJgDEFHZV2ZXBNz TGZlnWClSMRoZHKQMK8DDIzwNJS9WMZbaxJhmZVdGH zuRN7GWNYljhWlJpQmGEKTHLj+Ma2YAR4ba0FvLQuzHjKqSN3ryy0KSCfXSaUkQ9Q2vJGhG4A0ADlxBw 1DGXMlBHDyDGouYYWFYSmwEI7XHZ2yllW8VP4NnGCeCCYqPVZtoKQdCIw6V25ixJUcKHfiEE3VJPF+Pi A+Qn6KUCGvTKBwZODdUfKyWBJKTcDyJ6SsL4ISz7Rv Q7DtZU27wNzpdmEnBSncUP3KXA3iAARlKYSDXP8FzRZfyU1tnqClMSNeVLYTUhOfB94odERoQUYwFQSz WYBfDp7ITYOwJ3CkejQewKpglvZbJZRwCZLWKD4EZXqzpfUakVKwwQnkNG92mXinNS4OPj1BJbVfLZ5f au4DbKHoZh9GFGIfFU4LKCNzVJEpNCHpVXF0BDVsRz MxIJjgDHFjFEPjHGA4ZKUaUZWbIB5RYtRkZEOkKIjkPHUwBNYeDCKriw0MZKGoADNxPHD6ALVxUQChYD MvSZmuVPUvOEPiKDU6YFWpWZAzYU0EXnKfDCTgCPZ7EGRwIVTbIBVrim6FYKDzRMMxRyT1OTUfNAAbXA LlTFfhPWZgYCT6AJo4AYJaSIBkYQ7QQgKmPXCkQUMy EzybAUNpIPVbcl5HZMFlEDUgKYUtLVQpWFYrPXZwGPltMQMcMSR4IAB4QYYbDGRoEW9JRwJuQZPaLRT7 TRJsGARbXLTidf6QLOGlPGMbNrJ0LPSkMFYnHCQvXHmdFMIkJJB0KId1OBOyMWEeKW1SZrBaMWIiICpu EsFeVZItHNHzwe3WLAHkCMCeZEBySXXuCYPxONYkFG ivCLGvXAG4VkO3SGPeWDVvXB4KRcPrXRKbBOn1MNVaRSVgBAHwli4PNNZaUAPvWQH9KDOxTRVfABPdXK vbJDLtDAJ3GjJfGZOuUUWjSX5OPfArBZGbXMh9IiRbKLNqHRZaqp7ABQGpVHRqAPI3DTHrOSZfJECiMT dmAYNmZFZdVeE1CLJjMQRfIF4XLoXwNVKjDlIfHNKz XSTfWGTgro0IyWDfmDunkx7NDUbQJb8FySvgGWG3UZxvIv5peJZmDvZgAOOMKs5SoiKhZXYwOGYETLbx ERCqVEQ2SYX9DUDoGeUlXOE4ONpqAFB5GITyLRF4XLUaQvPaBrE6COXqHDq4SpT8X9E7MERaORPoEXZl CkC7BTC3RjA5FlL+PL0dXUm+Xy5Os2ZuzyG4ghOxYLulJEScGq6CFDUBM1HGCe== ID Date Data Source [id number] 05/10/2020 10:14:00 AM EDT [facility] ([facility]) Name Value Range Interpretation Code Description Data Giovana rce(s) Supporting Document(s) Surgical pathology study Laboratory test result [facility] ([employer] [facility]) FINAL DIAGNOSIS Esophagus, below Z-line, biopsy: Junctional [...] MD 05/12/2020 1140 ID Date Data Source [id number] 05/09/2020 02:17:55 PM EDT [facility] Name Value Range Interpretation Code Description Data Giovana rce(s) Supporting Document(s) Progress Note [facility] ECRXSd1uTzCEJpKq48/WJOwsIAGte9FkUHptJTn6OUqfMLAfD9BjOEY8bQ2gHTH1SFvQRiViFkKjKWXa [facility] [file] IW0OXOt= ID Date Data Source [id number] 05/05/2020 11:55:00 AM EDT [facility] Name Value Range Interpretation Code Description Data Giovana rce(s) Supporting Document(s) SARS coronavirus 2 RNA [facility] This lab was ordered by [facility] and reported by [facility]. ID Date Data Source [id number] 04/27/2020 06:09:28 AM EDT [facility] XR FOOT 3 OR MORE VIEWS [id number] RESUL TInterpreted by:Fallon Smith ankle 2 views [...] rce(s) Supporting Document(s) ID Date Data Source [id number] 04/27/2020 06:09:28 AM EDT [facility] XR ANKLE 2 VIEWS [id number] RESULTInterp reted by:Fallon Smith ankle 2 views [...] rce(s) Supporting Document(s) ID Date Data Source [id number] 04/26/2020 04:20:41 PM [facility] Name Value Range Interpretation Code Description Data Giovana rce(s) Supporting Document(s) Progress Note [facility] MGUBMg2dFbDNExCl12/GXMyfRLQli6XtAMbbMXw4DKklCTWcW0UyLLQ8gZ3bLVM4ZJlNNaZiDwClQYFm m [file] mpLvYqBC2QYq7IKdI5FAR0rNFfDs3FFgA5MxgUAfCxOR1FCPm= ID Date Data Source [id number] 03/29/2020 12:20:00 [place] [address] PHONE: [phone] FAX: [phone] Name .................. : [facility] [place] Acct Number.................. : [id number] ROOM. ................. : MR Number ................... : [id number] Stay type ............. : CLINIC Discharge Date......... ... : 03/27/20 Admit Date ......... : 03/27/20 Admit Phys .................... : HESTER HARD Date of ....... : 1990 Family Phys ................... : HESTER HARD Phone .................. : [phone] Age ................................ : 29 Film# .................. .:[id number] Sex ................................. : M Unsigned transcriptions are preliminary reports and do not represent a medical or legal document CT ABD & PELV W/O ORAL W/O IV [id number] COMPLETE:03/27/20 14:16 RLB [id number] (REASON FOR ABDOMEN: LOWER ABD PAIN CT [...] dose: 2953.0 mGycm Page 1 of 2 [facility] [address] [place] [address] [place] [address] PHONE: [phone] FAX: [phone] Name .................. : [facility] Acct Number.................. : [id number] ROOM. ................. : Number ................... : [id number] Stay type ............. : CLINIC Discharge Date......... ... : 03/27/20 Admit Date ......... : 03/27/20 Admit Phys .................... : HESTER HARD Date of ....... : 1990 Family Phys ................... : [facility] ([employer] [facility]) Phone .................. : [phone] Age ................................ : 29 Film# .................. .:[id number] Sex ................................. : M Unsigned transcriptions are preliminary reports and do not represent a medical or legal document CT ABD & PELV W/O ORAL W/O IV [id number] COMPLETE:03/27/20 14:16 RLB [id number] (REASON FOR ABDOMEN: LOWER ABD PAIN Electronically Reviewed and Signed By Yousif Bernardo M.D. , 03/29/20 12:20, [facility] Transcribe Initials: GUCCI , Transcribe Date: 03/27/20 23:48, Dictation Date: Page 2 of 2 Name Value Range Interpretation Code Description Data Giovana rce(s) Supporting Document(s) ID Date Data Source [id number] 03/22/2020 03:26:00 PM EDT [facility] 1 OrderSheet [facility] Emergency Department [address] [place] [address] Phone #: ext- [phone] 03/22/2020 15:24 Patient: [...] rce(s) Supporting Document(s) ID Date Data Source [id number] 03/22/2020 03:26:00 PM EDT [facility] 1 Medication Reconciliation Report [facility] Emergency Department [address] [place] [address] Phone #: ext- [phone] 03/22/2020 15:24 Patient: [...] ODT Oral, prn 2 Medication Reconciliation Report [facility] Emergency Department [address] [place] [address] Phone #: ext- [phone] 03/22/2020 15:24 Patient: NICK TRUJILLO Sex: M : 1990 Age: 29yThe source(s) of the original Home Medication information:patientThe following Medications were given to the patient in the Emergency Department:Ativan [IM] IM 1 mg, administered: 03/22/2020 4:03:00 PMThe following Medications were prescribed to the patient:None. Name Value Range Interpretation Code Description Data [facility] Supporting Document(s) ID Date Data Source [id number] 03/22/2020 03:26:00 PM EDT [facility] 1 Medication Administration Record [facility] Emergency Department [address] [place] [address] Phone #: ext- [phone] 03/22/2020 15:24 Patient: NICK TRUJILLO Sex: M : 1990 Age: 29yWeight: 190.5 kgHeight/Length: 71 inBMI: 58.6ALLERGIES: Dilantin, Naproxen, Naproxsyn, Tylenol with codein Date/Time Medication Administered Medication OrderedGiven ATIVAN [IM] (LORAZEPAM) Ativan IM 1 mg (HIGH ALERT16:03 03/22/2020 Dose: 1 mg IM MEDICATION)Enedina Banda R.N. Name Value Range Interpretation Code Description Data Giovana rce(s) Supporting Document(s) ID Date Data Source [id number] 03/22/2020 03:26:00 PM EDT [facility] 1 General Instructions [facility] Emergency Department [address] [place] [address] Phone #: ext- [phone] 03/22/2020 15:24 Patient: NICK TRUJILLO Sex: M : 1990 Age: 29yChronic periumbilical abdominal pain, now resolved. (recurrent).INSTRUCTIONSDrink plenty of fluids. Avoid alcohol and NSAIDS. NSAIDS include aspirin, ibuprofen (Advil) and naproxen(Aleve). Avoid fatty, fried/greasy, lactose-containing (such as milk, cheese and ice cream), salty and spicyfoods. No alcohol. Do not smoke.Warnings: Further evaluation is necessary ([facility]). It is very important to [...] provided to patient viapaper. 2 General Instructions [facility] Emergency Department [address] [place] [address] Phone #: ext- [phone] 03/22/2020 15:24 Patient: NICK TRUJILLO Sex: M : 1990 Age: 29yUnderstanding of the discharge instructions verbalized by patient. Expected course of illness, dischargeinstructions, activity level, diet, follow-up appointment and risks and benefits of treatment reviewed withpatient and understanding verbalized. Agrees to plan of care.Follow-up with: [facility], , , [address] [place] [address], [id number] Follow up in five days even if [...] options include broth, soup, 3 General Instructions [facility] Emergency Department [address] [place] [address] Phone #: ext- [phone] 03/22/2020 15:24 Patient: [...] chest, arm, back, neck or jaw pain 5725-3960 [employer]. [address] [place] [address], [place] [address]. All rights reserved. This information is not intended as asubstitute for professional medical care. Always follow your healthcare professional's instructions. You have been given the following additional information: Unknown Causes of Abdominal Pain (Male)(Electronically signed by Cleo Gruber M.D. 03/22/2020 17:36) Name Value Range Interpretation Code Description Data Giovana rce(s) Supporting Document(s) ID Date Data Source [id number] 03/22/2020 03:26:00 PM EDT [facility] 1 Clinical Report - Nurses [facility] Emergency Department [address] [place] [address] Phone #: ext- [phone] 03/22/2020 15:24 Patient: [...] Osei R.N. 2 Clinical Report - Nurses [facility] Emergency Department [address] [place] [address] Phone #: ext- [phone] 03/22/2020 15:24 Patient: [...] Osei R.N. 3 Clinical Report - Nurses [facility] Emergency Department [address] [place] [address] Phone #: ext- [phone] 03/22/2020 15:24 Patient: NCIK TRUJILLO Sex: M : 1990 Age: 29y 15:59 03/22/20. BP: 141/76. MAP: 97. HR: 98. RR: 20. O2 saturation: 100%. --15:59 03/22/20 [facility] TechEnedina ER Tech1 16:03 03/22/2020 Ativan (LORazepam) [...] Patient verbalized understanding. Written instructions provided in Palauan. The patient was discharged home. He left ambulatory and via private vehicle. --17:24 03/22/20 Enedina Banda R.N.Locked/Released at 03/22/2020 17:25 by Enedina Banda R.N. Name Value Range Interpretation Code Description Data Giovana rce(s) Supporting Document(s) ID Date Data Source [id number] 03/22/2020 03:26:00 PM EDT [facility] 1 Clinical Report - Physicians/Mid Levels [facility] Emergency Department [address] [place] [address] Phone #: ext- [phone] 03/22/2020 15:24 Patient: [...] umbilical hernia repair several weeks ago at [facility], saw his surgeon last week for [...] Cholecystectomy. 2 Clinical Report - Physicians/Mid Levels [facility] Emergency Department [address] [place] [address] Phone #: ext- [phone] 03/22/2020 15:24 Patient: [...] pulses 3 Clinical Report - Physicians/Mid Levels [facility] Emergency Department [address] [place] [address] Phone #: ext- [phone] 03/22/2020 15:24 Patient: NICK TRUJILLO [facility]#: [id number] Sex: M : 1990 Age: 29y equal. [...] 8.2) 4 Clinical Report - Physicians/Mid Levels [facility] Emergency Department [address] [place] [address] Phone #: ext- [phone] 03/22/2020 15:24 Patient: NICK TRUJILLO Sex: M [...] be referred to our surgeon here at [facility] for his chronic, recurrent abdominal pain, we [...] (recurrent). 5 Clinical Report - Physicians/Mid Levels [facility] Emergency Department [address] [place] [address] Phone #: ext- [phone] 03/22/2020 15:24 Patient: NICK TRUJILLO Sex: M : 1990 Age: 29yINSTRUCTIONS Drink plenty of fluids. Avoid alcohol and NSAIDS. NSAIDS include aspirin, ibuprofen (Advil) and naproxen (Aleve). Avoid fatty, fried/greasy, lactose-containing (such as milk, cheese and ice cream), salty and spicy foods. No alcohol. Do not smoke. Warnings: Further evaluation is necessary ([facility]). It is very important to [...] plan of care. Follow-up with: [facility], , , [address] [place] [address], [facility] Follow up in five days even if well. Call for an appointment. Reason for referral: evaluation and treatment. Summary of care provided to patient via paper. 6 Clinical Report - Physicians/Mid Levels [facility] Emergency Department [address] [place] [address] Phone #: ext- [phone] 03/22/2020 15:24 Patient: NICK TRUJILLO Sex: M : 1990 Age: 29y(Electronically signed by Cleo Gruber M.D. 03/22/2020 17:36) Name Value Range Interpretation Code Description Data Giovana rce(s) Supporting Document(s) ID Date Data Source [id number] 03/22/2020 04:34:00 PM EDT [facility] Name Value Range Interpretation Code Description Data Giovana rce(s) Supporting Document(s) Lipase [Enzymatic activity/volume] in Serum or Plasma 34 U/L 13 - 60 [facility] ID Date Data Source [id number] 03/22/2020 04:34:00 PM EDT [facility] Name Value Range Interpretation Code Description Data Giovana rce(s) Supporting Document(s) COMPREHENSIVE METABOLIC PANEL [facility] COMPREHENSIVE METABOLIC PANEL Sodium [Moles/volume] in Serum or Plasma 140 mEq/L 134 - 153 [facility] Potassium [Moles/volume] in Serum or Plasma 4.2 mEq/L 3.6 - 5.0 [facility] Chloride [Moles/volume] in Serum or Plasma 106 mEq/L 98 - 107 [facility] Carbon dioxide, total [Moles/volume] in Serum or Plasma 24 MEQ/L 22 - 30 [facility] Glucose [Mass/volume] in Serum or Plasma 110 MG/DL 65 - 110 [facility] BUN 12 MG/DL 7 - 21 [facility] Creatinine [Mass/volume] in Serum or Plasma 0.9 MG/DL 0.7 - 1.5 [facility] BUN/CREAT 13 8 - 27 [facility] Protein [Mass/volume] in Serum or Plasma 7.7 G/DL 6.3 - 8.2 [facility] Albumin [Mass/volume] in Serum or Plasma 4.1 G/DL 3.9 - 5.0 [facility] Globulin [Mass/volume] in Serum by calculation 3.6 GM/DL 2.4 - 3.2 H [facility] A/G RATIO 1.1 0.8 - 2.0 [facility] Calcium [Mass/volume] in Serum or Plasma 9.0 MG/DL 8.4 - 10.2 [facility] Bilirubin.total [Mass/volume] in Serum or Plasma <0.7 MG/DL 0.2 - 1.3 [facility] Alkaline phosphatase [Enzymatic activity/volume] in Serum or Plasma 83 U/L 38 - 126 [facility] Aspartate aminotransferase [Enzymatic activity/volume] in Serum or Plasma 27 U/L 5 - 40 [facility] Alanine aminotransferase [Enzymatic activity/volume] in Seru m or Plasma 37 U/L 7 - 56 [facility] Anion gap 3 in Serum or Plasma 10.0 mmol/L 8.0 - 16.0 [facility] AGE 29 yrs [facility] NON-AA GFR >60 mL/min [facility] AFR AMER GFR >60 mL/min [facility] Male GFR In terprentation 20-49 [...] >32 mL/min Normal ID Date Data Source [id number] 03/22/2020 04:15:00 PM EDT [facility] Name Value Range Interpretation Code Description Data Giovana rce(s) Supporting Document(s) CBC W/AUTOMATED DIFF [facility] COMPLETE BLOOD COUNT Leukocytes [#/volume] in Blood by Automated count 9.6 10^3/uL 4.2 - 1 1.0 [facility] Erythrocytes [#/volume] in Blood by Automated count 5.41 10^6/uL 4. 50 - 6.30 [facility] Hemoglobin [Mass/volume] in Blood 15.9 g/dL 14.0 - 16.0 [facility] Hematocrit [Volume Fraction] of Blood by Automated count 48.7 % 4 1.0 - 51.0 [facility] Erythrocyte mean corpuscular volume [Entitic volume] by Auto mated count 90.0 fL 80.0 - 94.0 [facility] Erythrocyte mean corpuscular hemoglobin [Entitic mass] by Automated count 29.4 pg 27.0 - 34.0 [facility] Erythrocyte mean corpuscular hemoglobin concentration [Mass/volume] by Automated count 32.6 g/dL 31.0 - 36.0 [facility] Erythrocyte distribution width [Ratio] by Automated count 14.4 % 11.5 - 14.8 [facility] Platelets [#/volume] in Blood by Automated count 197 10^3/uL 150 - 45 0 [facility] Platelet mean volume [Entitic volume] in Blood by Automated count 9.0 fL 7.4 - 10.4 [facility] Neutrophils/100 leukocytes in Blood by Automated count 63.6 % 37. 0 - 80.0 [facility] Lymphocytes/100 leukocytes in Blood by Manual count 22.2 % 25.0 - 40.0 L [facility] Monocytes/100 leukocytes in Blood by Automated count 9.9 % 3.0 - 8.0 H [facility] Eosinophils/100 leukocytes in Blood by Automated count 3.7 % 0.0 - 7.0 [facility] Basophils/100 leukocytes in Blood by Automated count 0.3 % 0.0 - 2.0 [facility] %IG 0.3 % 0.0 - 0.0 H [facility] %NRBC 0.0 % 0.0 - 0.0 [facility] al Neutrophils [#/volume] in Blood by Automated count 6.13 10^3/uL 2.00 - 6.90 [facility] Lymphocytes [#/volume] in Blood by Automated count 2.14 10^3/uL 0.60 - 3.40 [facility] Monocytes [#/volume] in Blood by Automated count 0.95 10^3/uL 0.00 - 0.90 H [facility] Eosinophils [#/volume] in Blood by Automated count 0.36 10^3/uL 0.00 - 0.70 [facility] Basophils [#/volume] in Blood by Automated count 0.03 10^3/uL 0.00 - 0.20 [facility] #IG 0.03 10^3/uL 0.00 - 0.10 [facility]ital #NRBC 0.00 10^3/uL 0.00 - 0.00 [facility] MANUAL DIFF NOT INDICATED [facility] RBC MORPH NOT INDICATED [facility] spital ID Date Data Source [id number] 03/13/2020 02:06:00 PM EDT [facility] [address] [place] [address] PHONE: [phone] FAX: [phone] Name .................. : GAVIOTA Madison Acct Number.................. : [id number] ROOM. ................. : TR-08 MR Number ................... : [id number] Stay type ............. : E/R Discharge Date......... ... : Admit Date ......... : 03/09/20 Admit Phys .................... : AMERNATH L Date of ....... : 1990 Family Phys ................... : HESTER HARD Phone .................. : [phone] Age ................................ : 29 Film# .................. .:[id number] Sex ................................. : M Unsigned transcriptions are preliminary reports and do not represent a medical or legal document CT ABD & PELV W/ORAL ONLY [id number] COMPLETE:03/09/20 21:11 [id number] Reason(s): Abdominal Pain CT OF THE ABDOMEN [...] 75 [address] 370 Page 1 of 2 [facility] [address] [place] [address] [place] [address] PHONE: [phone] FAX: [phone] Name .................. : GAVIOTA Madison Acct Number.................. : [id number] ROOM. ................. : TR-08 MR Number ................... : [id number] Stay type ............. : E/R Discharge Date......... ... : Admit Date ......... : 03/09/20 Admit Phys .................... : TALIA Madison Date of ....... : 1990 Family Phys ................... : HESTER HARD Phone .................. : [phone] Age ................................ : 29 Film# .................. .:[id number] Sex ................................. : M Unsigned transcriptions are preliminary reports and do not represent a medical or legal document CT ABD & PELV W/ORAL ONLY [id number] COMPLETE:03/09/20 21:11 [id number] Reason(s): Abdominal Pain Method of administration: Intravenous Electronically Reviewed and Signed By Yousif Bernardo M.D. , 03/13/20 14:06, MICHELY Transcribe Initials: GUCCI , Transcribe Date: 03/09/20 23:30, Dictation Date: Copy for: EMERGENCY DEPT via modem Copy for: 710 MED REC DISCHARGED Page 2 of 2 Name Value Range Interpretation Code Description Data Giovana rce(s) Supporting Document(s) ID Date Data Source [id number] 03/09/2020 05:46:00 PM EDT [facility] 1 OrderSheet [facility] Emergency Department [address] [place] [address] Phone #: ext- [phone] 03/09/2020 17:13 Patient: [...] Description Priority Entered Acknowledged Initialed 2 OrderSheet [facility] Emergency Department [address] [place] [address] Phone #: ext- [phone] 03/09/2020 17:13 Patient: [...] rce(s) Supporting Document(s) ID Date Data Source [id number] 03/09/2020 05:46:00 PM EDT [facility] 1 Medication Reconciliation Report [facility] Emergency Department [address] [place] [address] Phone #: ext- [phone] 03/09/2020 17:13 Patient: [...] ODT Oral, prn 2 Medication Reconciliation Report [facility] Emergency Department [address] [place] [address] Phone #: ext- [phone] 03/09/2020 17:13 Patient: NICK TRUJILLO Sex: M : 1990 Age: 29yThe source(s) of the original Home Medication information:Not obtained.The following Medications were given to the patient in the Emergency Department:None.The following Medications were prescribed to the patient:None. Name Value Range Interpretation Code Description Data Giovana rce(s) Supporting Document(s) ID Date Data Source [id number] 03/09/2020 05:46:00 PM EDT [facility] 1 Medication Administration Record [facility] Emergency Department [address] [place] [address] Phone #: ext- [phone] 03/09/2020 17:13 Patient: NICK TRUJILLO Sex: M : 1990 Age: 29yWeight: 179.1 kgHeight/Length: 71 inBMI: 55.1ALLERGIES: Naproxen, Dilantin, Tylenol with codiene, Naproxsyn, Tylenol with codeinDate/Time Medication Administered Medication Ordered Name Value Range Interpretation Code Description Data Giovana rce(s) Supporting Document(s) ID Date Data Source [id number] 03/09/2020 05:46:00 PM EDT [facility] 1 General Instructions [facility] Emergency Department [address] [place] [address] Phone #: ext- [phone] 03/09/2020 17:13 Patient: [...] when you follow up. 2 General Instructions [facility] Emergency Department [address] [place] [address] Phone #: ext- [phone] 03/09/2020 17:13 Patient: NICK TRUJILLO Sex: M [...] red or black color) 3 General Instructions [facility] Emergency Department [address] [place] [address] Phone #: ext- [phone] 03/09/2020 17:13 Patient: NICK TRUJILLO Sex: M : 1990 Age: 29y Jaundice (yellow color of eyes and skin) New onset of weakness, dizziness or fainting New onset of chest, arm, back, neck or jaw pain 4215-4766 [employer] [address] [place] [address], [place] [address]. All rights reserved. This information is not [...] bloating Feeling full quickly 4 General Instructions [facility] Emergency Department [address] [place] [address] Phone #: ext- [phone] 03/09/2020 17:13 Patient: [...] dizzy Shortness of breath 5 General Instructions [facility] Emergency Department [address] [place] [address] Phone #: [phone] lfk- [phone] 03/09/2020 17:13 Patient: NICK TRUJILLO Sex: M : 1990 Age: 29y Unexplained weight loss Fever of 100.4F (38C) or higher, or as directed by your healthcare provider 0080-3459 [employer]. [address] [place] [address]. All rights reserved. This information is not [...] rce(s) Supporting Document(s) ID Date Data Source [id number] 03/09/2020 [facility]:46[facility] - [facility] Emergency Department [address] [place] [address] Phone #: ext- [phone] 03/09/2020 17:13 Patient: NICK TRUJILLO Sex: M : 1990 Age: 29yTRIAGEArrived by EMS. Historian: patient. ( PT HAD HERNIA SURGERY 4 WEEKS AGO AND HE SAYS MAGNOLIA ALMIRIAM. NO DRAINAGE. PT HAS APPT NEXT TUES WITH SURGEON-DR. FINNEY IN [place].PROCEDURE WASA T [place]).Triage time: 17:14 03/09/2020. Acuity: LEVEL 3.Chief Complaint: ABDOMINAL PAIN.Alert.The patient has had abdominal pain.Treatment RISK INTERN:None. --17:18 03/09/20 Enedina Banda R.N.17:14 03/09/20. BP: [...] Banda R.N.Naproxsyn. 2 Clinical Report - Nurses [facility] Emergency Department [address] [place] [address] Phone #: ext- [phone] 03/09/2020 17:13 Patient: [...] treatment room. --17:18 03/09/20 Enedina Banda R.N.PHYSICAL [id number] 03/09/20. To room via stretcher.GENERAL / NEURO [...] RR: 16. O2 saturation: 97%. --18:27 03/09/20 [facility] TechEnedina Tech1 18:30 03/09/20. Patient gowned. Head of bed elevated 75 degrees. Two patient identifiers checked. Call light placed in reach. Bed placed in lowest position. Brakes of bed on. Patient ready for evaluation- chart flagged. --18:30 03/09/20 Phillip Drummond RN 3 Clinical Report - Nurses [facility] Emergency Department [address] [place] [address] Phone #: ext- [phone] 03/09/2020 17:13 [id number] Sex[facility] M : 1990 Age: 29y 19:16 [...] Reviewed referral to family practice and a organizational consultant for followup. Reviewed need for increased fluid intake. Activity restrictions (rest) reviewed. Patient verbalized understanding. Written instructions provided in Palauan. The patient was discharged home. He left [...] Peace RN. 4 Clinical Report - Nurses [facility] Emergency Department [address] [place] [address] Phone #: [phone] sit- [phone] 03/09/2020 17:13 [facility]: [id number] Sex: M : 1990 Age: 29yLocked/Released at 03/10/2020 00:45 by Bean Peace RN Name Value Range Interpretation Code Description Data Giovana rce(s) Supporting Document(s) ID Date Data Source [id number] 03/09/2020 05:46:00 PM EDT [facility] 1 Clinical Report - Physicians/Mid Levels [facility] Emergency Department [address] [place] [address] Phone #: ext- [phone] 03/09/2020 17:13 Patient: NICK TRUJILLO Sex: M : 1990 Age: 29y Time Seen: 18:33 03/09/2020. Historian- patient. Disposition decision: 00:11 03/10/2020.HISTORY OF PRESENT ILLNESS Chief Complaint: ABDOMINAL PAIN. (29 year old morbuidly obese patient with abdominal pain past few weeks. had a cholecystectomy a nd later umbilical hernia repair done also at [facility]. has an appointment with f/u [...] Repair. 2 Clinical Report - Physicians/Mid Levels [facility] Emergency Department [address] [place] [address] Phone #: ext- [phone] 03/09/2020 17:13 Patient: NICK TRUJILLO [facility]#: [id number] Sex: M : 1990 Age: 29y Tonsillectomy. [...] sounds 3 Clinical Report - Physicians/Mid Levels [facility] Emergency Department [address] [place] [address] Phone #: ext- [phone] 03/09/2020 17:13 Patient: NICK TRUJILLO Sex: M [...] Exam CT ABD //T// PELV W/ORAL ONLY [address] [place] [address] PHONE: [phone] FAX: [phone] Name .................. : GAVIOTA Madison Acct Number.................. : [id number] ROOM. ... .............. : TR-08 MR Number ................... : [id number] Stay type ............. : E/R Discharge Date......... ... : Admit Date ......... : 03/09/20 Admit Phys .................... : AMERNATH L Date of ....... : 1990 Family Phys ................... : HESTER HARD Phone .................. : [phone] Age ................................ : 29 Film# .................. .:[id number] Sex ................................. : M Unsigned transcriptions are [...] thickening. 4 Clinical Report - Physicians/Mid Levels [facility] Emergency Department [address] [place] [address] Phone #: ext- [phone] 03/09/2020 17:13 Patient: NICK TRUJILLO Sex: M [...] mL: 75 Isovue 370 Page 1of 2 [place] [address] PHONE: [phone] FAX: [phone] Name .................. : GAVIOTA Madison Acct Number.................. : [id number] ROOM. ................. : TR-08 MR Number ................... : [id number] Stay type ............. : E/R Discharge Date......... ... : Admit Date ......... : 03/09/20 Admit Phys .................... : TALIA Madison Date of ....... : 1990 Family Phys ................... : MIR HARD Phone .................. : [phone] Age ..................... ........... : 29 Film# .................. .:[id number] Sex ................................. : M Unsigned transcriptions are [...] n 5 Clinical Report - Physicians/Mid Levels [facility] Emergency Department [address] [place] [address] Phone #: ext- [phone] 03/09/2020 17:13 Patient: [...] Male GFR Interprentation 20-49 yrs >60 mL/min Dbzaak43-29 yrs >56 mL/min Normal 60-69 yrs >49 mL/min Normal 70-79yrs>42 mL/min Normal 80 and above >35 mL/min Normal Female GFRInterpretation 20-39 yrs >60 mL/min Normal 40-49 yrs >58 mL/minNormal 50-59 yrs >51 mL/min Normal 60-69 yrs >45 mL/min Cvcbgj51-39 yrs >39 mL/min Normal 80 and above [...] 51.0) 6 Clinical Report - Physicians/Mid Levels [facility] Emergency Department [address] [place] [address] Phone #: ext- [phone] 03/09/2020 17:13 Patient: [...] has an appointment with his surgeon at [facility] next week, advised to keep the appointment, return if any symptoms. Patient/family counseled. Old medical records ordered. Disposition: Discharged home in good and improved cond ition (00:11 Mar 10 2020). Condition: stable. 7 Clinical Report - Physicians/Mid Levels [facility] Emergency Department [address] [place] [address] Phone #: ext- [phone] 03/09/2020 17:13 Patient: NICK TRUJILLO Sex: M [...] Value Range Interpretation Code Description Data [facility](s) Supporting Document(s) ID Date Data Source [id number] 03/09/2020 07:33:00 PM EDT [facility] Name Value Range Interpretation Code Description Data [facility](s) Supporting Document(s) [facility] COL[facility] yellow NORMAL: Yellow [facility] CLARITY clear NORMAL: Clear [facility] Specific gravity of Urine by Test strip 1.010 1.001 - 1.030 [facility] pH 7 5 - 9 [facility] Glucose [Mass/volume] in Urine by Test strip NORM NORMAL: Negat [facility] Bilirubin.total [Presence] in Urine by Test strip NEG NORMAL: Negative [facility] Ketones [Presence] in Urine by Test strip NEG NORMAL: Negative [facility] Protein [Mass/volume] in Urine by Test strip NEG NORMAL: Negat [facility] Nitrite [Presence] in Urine by Test strip NEG NORMAL: Negative [facility] BLOOD NEG NORMAL: Negative [facility] Leukocyte esterase [Presence] in Urine by Test strip NEG MILAGROS L: Negative [facility] Urobilinogen [Mass/volume] in Urine by Test strip NOR less vanessa n 1.0 mg/dL [facility] MICROSCOPIC Not Indicate [facility] ospital ID Date Data Source [id number] 03/09/2020 07:38:00 PM EDT [facility] Name Value Range Interpretation Code Description Data Giovana rce(s) Supporting Document(s) COMPREHENSIVE METABOLIC PANEL [facility] COMPREHENSIVE METABOLIC PANEL Sodium [Moles/volume] in Serum or Plasma 142 mEq/L 134 - 153 [facility] Potassium [Moles/volume] in Serum or Plasma 3.8 mEq/L 3.6 - 5.0 [facility] Chloride [Moles/volume] in Serum or Plasma 106 mEq/L 98 - 107 [facility] Carbon dioxide, total [Moles/volume] in Serum or Plasma 21 MEQ/L 22 - 30 L [facility] Glucose [Mass/volume] in Serum or Plasma 118 MG/DL 65 - 110 H [facility] BUN 11 MG/DL 7 - 21 [facility] al Creatinine [Mass/volume] in Serum or Plasma 0.9 MG/DL 0.7 - 1.5 [facility] BUN/CREAT 12 8 - 27 [facility] Protein [Mass/volume] in Serum or Plasma 7.8 G/DL 6.3 - 8.2 [facility] Albumin [Mass/volume] in Serum or Plasma 4.4 G/DL 3.9 - 5.0 [facility] Globulin [Mass/volume] in Serum by calculation 3.4 GM/DL 2.4 - 3.2 H [facility] A/G RATIO 1.3 0.8 - 2.0 [facility] Calcium [Mass/volume] in Serum or Plasma 9.2 MG/DL 8.4 - 10.2 [facility] Bilirubin.total [Mass/volume] in Serum or Plasma <0.7 MG/DL 0.2 - 1.3 [facility] Alkaline phosphatase [Enzymatic activity/volume] in Serum or Plasma 98 U/L 38 - 126 [facility] Aspartate aminotransferase [Enzymatic activity/volume] in Serum or Plasma 20 U/L 5 - 40 [facility] Alanine aminotransferase [Enzymatic activity/volume] in Seru m or Plasma 32 U/L 7 - 56 [facility] Anion gap 3 in Serum or Plasma 15.0 mmol/L 8.0 - 16.0 [facility] AGE 29 yrs [facility] NON-AA GFR >60 mL/min [facility] AFR AMER GFR >60 mL/min [facility] Male GFR In terprentation 20-49 [...] >32 mL/min Normal ID Date Data Source [id number] 03/09/2020 07:35:00 PM EDT [facility] Name Value Range Interpretation Code Description Data Giovana rce(s) Supporting Document(s) Lipase [Enzymatic activity/volume] in Serum or Plasma 39 U/L 13 - 60 [facility] ID Date Data Source [id number] 03/09/2020 07:19:00 PM EDT [facility] Name Value Range Interpretation Code Description Data Giovana rce(s) Supporting Document(s) Lactate [Moles/volume] in Serum or Plasma 3.4 MMOL/L 0.2 - 2.2 H [facility] ID Date Data Source [id number] 03/09/2020 07:17:00 PM EDT [facility] Name Value Range Interpretation Code Description Data Giovana rce(s) Supporting Document(s) CBC W/AUTOMATED DIFF [facility] COMPLETE BLOOD COUNT Leukocytes [#/volume] in Blood by Automated count 11.1 10^3/uL 4.2 - 11.0 H [facility] Erythrocytes [#/volume] in Blood by Automated count 5.71 10^6/uL 4. 50 - 6.30 [facility] Hemoglobin [Mass/volume] in Blood 16.4 g/dL 14.0 - 16.0 H [facility] Hematocrit [Volume Fraction] of Blood by Automated count 51.4 % 4 1.0 - 51.0 H [facility] Erythrocyte mean corpuscular volume [Entitic volume] by Auto mated count 90.0 fL 80.0 - 94.0 [facility] Erythrocyte mean corpuscular hemoglobin [Entitic mass] by Automated count 28.7 pg 27.0 - 34.0 [facility] Erythrocyte mean corpuscular hemoglobin concentration [Mass/volume] by Automated count 31.9 g/dL 31.0 - 36.0 [facility] Erythrocyte distribution width [Ratio] by Automated count 14.1 % 11.5 - 14.8 [facility] Platelets [#/volume] in Blood by Automated count 209 10^3/uL 150 - 45 0 [facility] Platelet mean volume [Entitic volume] in Blood by Automated count 9.0 fL 7.4 - 10.4 [facility] Neutrophils/100 leukocytes in Blood by Automated count 71.7 % 37. 0 - 80.0 [facility] Lymphocytes/100 leukocytes in Blood by Manual count 16.6 % 25.0 - 40.0 L [facility] Monocytes/100 leukocytes in Blood by Automated count 5.9 % 3.0 - 8.0 [facility] Eosinophils/100 leukocytes in Blood by Automated count 5.1 % 0.0 - 7.0 [facility] Basophils/100 leukocytes in Blood by Automated count 0.3 % 0.0 - 2.0 [facility] %IG 0.4 % 0.0 - 0.0 [facility] % 0.0 - 0.0 [facility] al Neutrophils [#/volume] in Blood by Automated count 7.98 10^3/uL 2.00 - 6.90 H [facility] Lymphocytes [#/volume] in Blood by Automated count 1.85 10^3/uL 0.60 - 3.40 [facility] Monocytes [#/volume] in Blood by Automated count 0.66 10^3/uL 0.00 - 0.90 [facility] Eosinophils [#/volume] in Blood by Automated count 0.57 10^3/uL 0.00 - 0.70 [facility] Basophils [#/volume] in Blood by Automated count 0.03 10^3/uL 0.00 - 0.20 [facility] #IG 0.04 10^3/uL 0.00 - 0.10 [facility] #NRBC 0.00 10^3/uL 0.00 - 0.00 [facility] ospital MANUAL DIFF NOT INDICATED [facility] RBC MORPH NOT INDICATED [facility] spital ID Date Data Source [id number] 02/23/2020 11:36:00 AM EDT [facility] ([facility]) Name Value Range Interpretation Code Description Data Giovana rce(s) Supporting Document(s) CBC W/Automated Diff Laboratory test result [facility] ([facility]) Is patient fasting? N WBC 10.6 10^3/uL 4.2-11.0 [facility] ([facility]) Is patient fasting? N RBC 5.78 10^6/uL 4.50-6.30 [facility] ([facility]) Is patient fasting? N Hematocrit 51.1 % 41.0-51.0 Above high normal [facility] ([facility]) Is patient fasting? N Hemoglobin 16.3 g/dL 14.0-16.0 Above high normal [facility] ([facility]) Is patient fasting? N MCV 88.4 fL 80.0-94.0 [facility] ([facility]) Is patient fasting? N RDW 13.5 % 11.5-14.8 [facility] ([facility]) Is patient fasting? N MCH 28.2 pg 27.0-34.0 [facility] ([facility]) Is patient fasting? N MCHC 31.9 g/dL 31.0-36.0 [facility] Is patient fasting? N Platelets 262 10^3/uL 150-450 [facility] ([facility]) Is patient fasting? N Neut 65.2 % 37.0-80.0 [facility] ([facility]) Is patient fasting? N Lymph 18.6 % 25.0-40.0 Below low normal [facility] ( [facility]) Is patient fasting? N MPV 9.6 fL 7.4-10.4 [facility] ([facility]) Is patient fasting? N Eos 7.6 % 0.0-7.0 Above high normal [facility] ([facility]) Is patient fasting? N [place] 7.6 % 3.0-8.0 [facility] ([facility]) Is patient fasting? N Baso 0.5 % 0.0-2.0 [facility] ([facility]) Is patient fasting? N %NRBC 0.0 % 0.0-0.0 [facility] ([facility]) Is patient fasting? N %Ig 0.5 % 0.0-0.0 Above high normal [facility] ([facility]) Is patient fasting? N #Lymph 1.97 10^3/uL 0.60-3.40 [facility] ([facility]) Is patient fasting? N #Neut 6.92 10^3/uL 2.00-6.90 Above high normal [facility] ([facility]) Is patient fasting? N #[place] 0.81 10^3/uL 0.00-0.90 [facility] ([facility]) Is patient fasting? N #Eos 0.81 10^3/uL 0.00-0.70 Above high normal [facility] ([facility]) Is patient fasting? N #Baso 0.05 10^3/uL 0.00-0.20 [facility] ([facility]) Is patient fasting? N #Ig 0.05 10^3/uL 0.00-0.10 [facility] ([facility]) Is patient fasting? N Manual Diff Laboratory test result [facility] ([facility]) Is patient fasting? N RBC Morph Laboratory test result [facility] ([facility]) Is patient fasting? N #NRBC 0.00 10^3/uL 0.00-0.00 [facility] ([facility]) Is patient fasting? N ID Date Data Source [id number] 02/23/2020 11:36:00 AM EDT [facility] ([facility]) Name Value Range Interpretation Code Description Data Giovana rce(s) Supporting Document(s) Hemoglobin A1c/Hemoglobin.total in Blood 4.9 % 4.4-6.1 [facility] ([facility]) Is patient fasting? N Topiramate [Mass/volume] in Serum or Plasma 7.3 ug/mL 2.0-25.0 [facility] ([facility]) Is patient fasting? N ID Date Data Source [id number] 02/23/2020 11:36:00 AM EDT [facility] ([facility]) Name Value Range Interpretation Code Description Data Giovana rce(s) Supporting Document(s) Comprehensive Metabo Laboratory test result [facility] ([facility]) Is patient fasting? N Chloride 103 meq/L 98-107 [facility] ([facility]) Is patient fasting? N Sodium 141 meq/L 134-153 [facility] ([facility]) Is patient fasting? N Potassium 3.8 meq/L 3.6-5.0 [facility] ([facility]) Is patient fasting? N Co2 25 meq/L 22-30 [facility] ([facility]) Is patient fasting? N BUN 8 mg/dL 7-21 [facility] ([facility]) Is patient fasting? N Glucose 86 mg/dL 65-110 [facility] ([facility]) Is patient fasting? N Creatinine 0.9 mg/dL 0.7-1.5 [facility] ([facility]) Is patient fasting? N Total Protein 7.8 g/dL 6.3-8.2 [facility] ([facility]) Is patient fasting? N BUN/Creat 9 8-27 [facility] ([facility]) Is patient fasting? N A/G Ratio 1.2 0.8-2.0 [facility] ([facility]) Is patient fasting? N Albumin 4.3 g/dL 3.9-5.0 [facility] ([facility]) Is patient fasting? N Globulin 3.5 GM/DL 2.4-3.2 Above high normal [facility] ([facility]) Is patient fasting? N Calcium 9.4 mg/dL 8.4-10.2 [facility] ([facility]) Is patient fasting? N Alkaline Phos 101 U/L 38-126 [facility] ([facility]) Is patient fasting? N Total Bili Laboratory test result 0.2-1.3 [facility] ([facility]) Is patient fasting? N Sgot/Ast 19 U/L 5-40 [facility] ([facility]) Is patient fasting? N SGPT/Alt 35 U/L 7-56 [facility] ([facility]) Is patient fasting? N Anion Gap 13.0 mmol/L 8.0-16.0 [facility] ([facility]) Is patient fasting? N Age 29 yrs [facility] ([facility]) Is patient fasting? N Non-Aa GFR Laboratory test result [facility] ([facility]) Is patient fasting? N Afr Amer GFR Laboratory test result [facility] ([facility]) Is patient fasting? N ID Date Data Source [id number] 02/23/2020 11:36:00 AM EDT [facility] ([facility]) Name Value Range Interpretation Code Description Data Giovana rce(s) Supporting Document(s) Thyrotropin [Units/volume] in Serum or Plasma 1.92 uIU/mL 0.47-5.01 [facility] ([facility]) Is patient fasting? N Thyroxine (T4) free [Mass/volume] in Serum or Plasma 0.85 ng/dL 0.93-1.70 Below low normal [facility] ([facility]) Is patient fasting? N ID Date Data Source [id number] 02/23/2020 11:36:00 AM EDT [facility] ([facility]) Name Value Range Interpretation Code Description Data Giovana rce(s) Supporting Document(s) Free Lynwood Lt Chains,S 31.4 mg/L 3.3-19.4 Above high normal [facility] ([facility]) Is patient fasting? N [place]/Lambda Ratio,S 1.03 NA 0.26-1.65 [facility] ([facility]) Is patient fasting? N Free Lambda Lt Chains,S 30.5 mg/L 5.7-26.3 Above high normal [facility] ([facility]) Is patient fasting? N ID Date Data Source [id number] 02/29/2020 07:03:00 AM EDT [facility] Name Value Range Interpretation Code Description Data Giovana rce(s) Supporting Document(s) Topiramate [Mass/volume] in Serum or Plasma 7.3 ug/mL 2.0-25.0 [facility] This test was developed and its performa nce characteristicsdetermined by [facility]. It has not been cleared or approvedby the Food and Drug Administration. Detection Limit = 1.0 ID Date Data Source [id number] 02/26/2020 06:44:00 AM EDT [facility] Name Value Range Interpretation Code Description Data Giovana rce(s) Supporting Document(s) Immunoglobulin light chains.kappa.free [Mass/volume] in Seru m 31.4 mg/L 3.3-19.4 H [facility] Immunoglobulin light chains.lambda.free [Mass/volume] in Serum or Plasma 30.5 mg/L 5.7-26.3 H [facility] Immunoglobulin light chains.kappa.free/I mmunoglobulin light chains.lambda.free [Mass Ratio] in Serum 1.03 NA 0.26-1.65 [facility] ID Date Data Source [id number] 02/23/2020 11:36:00 AM EDT [facility] ([facility]) Name Value Range Interpretation Code Description Data Giovana rce(s) Supporting Document(s) Thyrotropin [Units/volume] in Serum or Plasma Laboratory test result [facility] ([facility]) Thyroxine (T4) free [Mass/volume] in Serum or Plasma Laboratory alok t result [facility] ([facility]) Immunoglobulin light chains.kappa.free [Mass/volume] i n Serum Laboratory test result [facility] ([facility]) ID Date Data Source [id number] 02/23/2020 04:35:00 PM EDT [facility] Name Value Range Interpretation Code Description Data Giovana rce(s) Supporting Document(s) Thyroxine (T4) free index in Serum or Plasma by calculation 0.85 NG/DL 0.93 - 1.70 L [facility] ID Date Data Source [id number] 02/23/2020 04:33:00 PM EDT [facility] Name Value Range Interpretation Code Description Data Giovana rce(s) Supporting Document(s) Thyrotropin [Units/volume] in Serum or Plasma by Detec tion limit <= 0.05 mIU/L 1.92 uIU/mL 0.47 - 5.01 [facility] ID Date Data Source [id number] 02/23/2020 04:19:00 PM EDT [facility] Name Value Range Interpretation Code Description Data Giovana rce(s) Supporting Document(s) CBC W/AUTOMATED DIFF [facility] COMPLETE BLOOD COUNT Leukocytes [#/volume] in Blood by Automated count 10.6 10^3/uL 4.2 - 11.0 [facility] Erythrocytes [#/volume] in Blood by Automated count 5.78 10^6/uL 4. 50 - 6.30 [facility] Hemoglobin [Mass/volume] in Blood 16.3 g/dL 14.0 - 16.0 H [facility] Hematocrit [Volume Fraction] of Blood by Automated count 51.1 % 4 1.0 - 51.0 H [facility] Erythrocyte mean corpuscular volume [Entitic volume] by Auto mated count 88.4 fL 80.0 - 94.0 [facility] Erythrocyte mean corpuscular hemoglobin [Entitic mass] by Automated count 28.2 pg 27.0 - 34.0 [facility] Erythrocyte mean corpuscular hemoglobin concentration [Mass/volume] by Automated count 31.9 g/dL 31.0 - 36.0 [facility] Erythrocyte distribution width [Ratio] by Automated count 13.5 % 11.5 - 14.8 [facility] Platelets [#/volume] in Blood by Automated count 262 10^3/uL 150 - 45 0 [facility] Platelet mean volume [Entitic volume] in Blood by Automated count 9.6 fL 7.4 - 10.4 [facility] Neutrophils/100 leukocytes in Blood by Automated count 65.2 % 37. 0 - 80.0 [facility] Lymphocytes/100 leukocytes in Blood by Manual count 18.6 % 25.0 - 40.0 L [facility] Monocytes/100 leukocytes in Blood by Automated count 7.6 % 3.0 - 8.0 [facility] Eosinophils/100 leukocytes in Blood by Automated count 7.6 % 0.0 - 7.0 H [facility] Basophils/100 leukocytes in Blood by Automated count 0.5 % 0.0 - 2.0 [facility] %IG 0.5 % 0.0 - 0.0 H [facility] %NRBC 0.0 % 0.0 - 0.0 [facility] al Neutrophils [#/volume] in Blood by Automated count 6.92 10^3/uL 2.00 - 6.90 H [facility] Lymphocytes [#/volume] in Blood by Automated count 1.97 10^3/uL 0.60 - 3.40 [facility] Monocytes [#/volume] in Blood by Automated count 0.81 10^3/uL 0.00 - 0.90 [facility] Eosinophils [#/volume] in Blood by Automated count 0.81 10^3/uL 0.00 - 0.70 H [facility] Basophils [#/volume] in Blood by Automated count 0.05 10^3/uL 0.00 - 0.20 [facility] #IG 0.05 10^3/uL 0.00 - 0.10 [facility] #NRBC 0.00 10^3/uL 0.00 - 0.00 [facility] ospital MANUAL DIFF NOT INDICATED [facility] RBC MORPH NOT INDICATED [facility] ID Date Data Source [id number] 02/23/2020 04:14:00 PM EDT [facility] Name Value Range Interpretation Code Description Data Giovana rce(s) Supporting Document(s) COMPREHENSIVE METABOLIC PANEL [facility] COMPREHENSIVE METABOLIC PANEL Sodium [Moles/volume] in Serum or Plasma 141 mEq/L 134 - 153 [facility] Potassium [Moles/volume] in Serum or Plasma 3.8 mEq/L 3.6 - 5.0 [facility] Chloride [Moles/volume] in Serum or Plasma 103 mEq/L 98 - 107 [facility] Carbon dioxide, total [Moles/volume] in Serum or Plasma 25 MEQ/L 22 - 30 [facility] Glucose [Mass/volume] in Serum or Plasma 86 MG/DL 65 - 110 [facility] BUN 8 MG/DL 7 - 21 [facility] Creatinine [Mass/volume] in Serum or Plasma 0.9 MG/DL 0.7 - 1.5 [facility] BUN/CREAT 9 8 - 27 [facility] Protein [Mass/volume] in Serum or Plasma 7.8 G/DL 6.3 - 8.2 [facility] Albumin [Mass/volume] in Serum or Plasma 4.3 G/DL 3.9 - 5.0 [facility] Globulin [Mass/volume] in Serum by calculation 3.5 GM/DL 2.4 - 3.2 H [facility] A/G RATIO 1.2 0.8 - 2.0 [facility] Calcium [Mass/volume] in Serum or Plasma 9.4 MG/DL 8.4 - 10.2 [facility] Bilirubin.total [Mass/volume] in Serum or Plasma <0.7 MG/DL 0.2 - 1.3 [facility] Alkaline phosphatase [Enzymatic activity/volume] in Serum or Plasma 101 U/L 38 - 126 [facility] Aspartate aminotransferase [Enzymatic activity/volume] in Serum or Plasma 19 U/L 5 - 40 [facility] Alanine aminotransferase [Enzymatic activity/volume] in Seru m or Plasma 35 U/L 7 - 56 [facility] Anion gap 3 in Serum or Plasma 13.0 mmol/L 8.0 - 16.0 [facility] AGE 29 yrs [facility] NON-AA GFR >60 mL/min [facility] ital AFR AMER GFR >60 mL/min [facility] Male GFR In terprentation 20-49 [...] >32 mL/min Normal ID Date Data Source [id number] 02/23/2020 04:05:00 PM EDT [facility] Name Value Range Interpretation Code Description Data Giovana rce(s) Supporting Document(s) Hemoglobin A1c/Hemoglobin.total in Blood 4.9 % 4.4 - 6.1 [facility] {A1]{HB] ID Date Data Source [id number] 02/10/2020 09:57:30 AM [facility]T [facility] Name Date of Age Gend*PT [id number] Nick Trujillo 1990 29 years M SDCPT Location Ad[facility] Date/[facility] --- --- EPI ID CSN Admitting Provider [id number] Robert Tamayo MD([id number]) [place] [address] OPERATIVE REPORT OPNAME: NICK TRUJILLO#: [id number] #: [id number] ADMISSION DATE: 02/09/2020DOB: 1990 SEX: M PT TYPE: H SURACCT #: [id number] CARE PHYSICIAN: ADITYA HELLERDATE OF OPERATION: 020PREOPERATIVE [...] reversal of general anesthesia.SANIA MENDOZA/QUEENIE Job #: [id number] DOC #: [id number] Name Value Range Interpretation Code Description Data Giovana rce(s) Supporting Document(s) ID Date Data Source [id number] 02/09/2020 02:36:21 PM EDT [facility] SPEC EXP DATE 02/12/2020PATI ENT ABO/Rh A NEGATIVEANTIBODY SCREEN NEGATIVETESTING SITE PERFORMED AT [address] [place], [place] [address]BLOOD BANK COMMENT BLOOD TYPE CONFIRMED. Name Value Range Interpretation Code Description Data Giovana rce(s) Supporting Document(s) TYPE AND SCREEN [facility] ID Date Data Source [id number] 02/08/2020 07:24:25 AM EDT [facility] Name Date of Age Gend*PT [id number] Nick Trujillo 1990 29 years M OPPT Location Admission Date/Time Visit ID Attending Provider --- --- --- Robert Tamayo MD([id number]) EPI ID CSN Admitting Provider [id number] ---OUTPATIENT / OBSERVATIONAL SURGICAL OR INVASIVE PROCEDUREName: [...] 2 (two) times a dayHistorical Provider, Umeclidinium [place] (INCRUSE ELLIPTA) 62.5 MCG/INH AEPB Inhale 1 [...] thyromegaly. No carotid bruits.MENTAL / NEUROLOGICAL STATUS: [id number]: Clear to auscultation. No wheezes, rhonchi or [...] parts of this document, were dictated using FloTime software. A reasonable attempt at proofreading has beenmade to minimize errors. Please call with any questions or corrections.* Name Value Range Interpretation Code Description Data Giovana rce(s) Supporting Document(s) ID Date Data Source [id number] 02/04/2020 12:14:57 PM EDT [facility] Name Value Range Interpretation Code Description Data Giovana rce(s) Supporting Document(s) EKG [facility] KRVTCx2wQaHXWdFbr5UqLqOoPWAkXG7yjem0J2Z9pEKyZ6BdkJMfi8nlY5KyR3EsAKFmWWABAE6UtZLf jb2 [file] xyjmEtOkk8KmZlfkjldVjl1oldaxxtCcT3t4g9BjTy 1cd9g1p4E8BBzHov3c7h4P32PiYoc1d9w8Zh1Jgqyj8u2q6Qb1MZdneB4J5zPt/0aOqw1Hl9/a/Oji/P hcsa2bj6/P+xbkVp18rFCBRrBAplb56KQ8/ZuYje7El500rnHlzfrXKlO0vZKPYd5NYSYQde6YNwb0Rx LLEYp9HFmw3ngFWPBtfh8zOYqzxaDwXWzCd09zLvl4 xGAGKccaC7gYK/uxTExNE/uxTUyNE/uxTkzNE/izF9zDKVtdXCdIJFvqRCgMZJp/VmUxK3/aqYaK/Vgq pqaK/dgqpsaK/VgrpuaK/dgrpgaL/VgspiaL/dgspkaL/VgtpmaL/dgtpoaL/VgupqaL/dgupsaL/Vgv puaL/dgvpgaM/VgwpiaM/dgwpkaM/VgxpmaMjX/1na CFP+1UU8Z+mQrBZ3L+hEcRt0U+8PjOp4E+WLePf1P+uAgXu2D+nCvEu6N+3EvIu0rm30pB0/oo35joV/ Fe9FlqD/Zf01uqKCUo2OpqXEHz09jnEqLw7UgiFoJs90xuGmZp2AzmAzSe60lxV/Lj0QbtE/Gg31ljPU Dw2GrxFSMc92dgLhKi0VliWtUq16lmFqRx+ZiaPvZj +5gaP/Zj/ZiaP/Zj/5cfGDGlIJwyVGZhH6txCkIsMZovBvShF9ihDwQlVTlpRzDqN4iaF/ZjDZmaQ/Zj D7naQ/8pK0znF/7uV0fuX/4cB1vxJ/3yL6dtP/0nX4okI/5qC6zgL/3tX4elF/3sJ6xcC/9dB8rvJ/5j D7naQ/6pE7hvO/5eM5itT/4qN4zmM/2wV3jpT/5jD7 naQ/94Q1M6mE16cPeWfh/aoymbND/tLNs0v/d9RnVmq7wztXQ36vWDlLae6WlyUnOaN8ohU/1xW9alZ/ 5dB3fmI/2oZ3gdJ/6rH2ckL/5mK9pkT/5fC9trF/4qH9vxF/3kZ0xfA/2qY4nmB/4mZ4sfL/0fW5hrZ/ 4eY8nfW/3hW3sfM/8uQ4adY/3cD5luA/1dH3eyH/5j D7naQ/4nA1jtA/6hW7vqA/8mM6qrA/5eX3foR/9bN5faT/1dV3vxT/1mP2yyN/5jJ5cyP/0mH7scD/5j D7naQ/9vO0dwB/5eA4akF/4xW9ceP/6gW1afZ/3oW3neB/9gA1rxM/5jD/CjOce5WY/A7PFaVZsStsJf MndvU0npwkAcLC4TwuY1HuvxRxZpiNw2f8U7uc2scK 1af6cs39Y5QocGwC6X17C1CL1d06H0IuoWuX2J54O0QX0i61E7YecQxQ5D71I5VJ0t81I1WenExX3z56 E6NF0o42Y9IqxMaV8z54Q9EJ5e95G5PvkuwT4U8bO5TTGxQ1X2V7bruB6F7oE5OEKgA3V5QUGVie/Q9g xii2E0nANktL2y8TeoU2u7VpiM1o0G2gL2I1A8ql4Q iW0pn1NdV9im2Tjipvf2DgjhOD9AjlgL18MjqgL8oTQmdX1o7YwpN7k6NobM8c7Q8ugsr9U3JH0H6TMJ bc/X4fmuv5N0DP2Y4GVOps/I9rpwd5Z3RR5B8FGpzo/B4xgzr3C5TH8D9aJiev/C8vjmj5F4UH5A4rEk bc/Q3vqmo3R2GQh9ZPqcu0R3DkYS9mgWE2T2zBNUOk pSYDOzzR1J1igWsxDdd+jGtunxjP0X+1p7m5x2kLEQSakntL2R+5d6y4k9aHNvab2AwtzUQ7XnrtrJ4D gbYlFHB1UPLVWAcgRiCSemAfjKBHrhDSaDeZOYcvztUlXNcMMGOEEynPtJMaeFOpxAEAiVkzlegabzTi LKfQqsfOBT8NkbfdBFl9MOaEWJqvVzYDqnDbfYL2cw JhyWtyKUv5nAIdGTpHNqTSPwjYsPIwcPP2cYASnMnvksqdddVimJyTpysDjN9S6jXanDg8SEvLXU9hQt hEilSshULDtlHreZv29Mcy12mHKs3Sns4N8+MOIÉSS/9oYsds4PYmSlu8y8voKgo2+8KOY0ZKurdJ7I6AyT [file] YQPhNknzXh2vwDJ2ATCdAdqFUz7Iq9KamvA5hbWrYcN2ZtJ0XdCkFE1O ID Date Data Source [id number] 02/04/2020 12:06:53 PM [facility] INFORMATIONPatient MRN Name Date of Age Gend*PT [id number] Nick Trujillo 1990 29 years M OPPT Location Admission Date/Time Visit ID Attending Provider --- --- --- Robert Tamayo MD([id number]) EPI ID [facility] Admitting Provider [id number] ---OUTPATIENT / OBSERVATIONAL SURGICAL OR INVASIVE PROCEDUREName: [...] 2 (two) times a dayHistorical Provider, Umeclidinium [place] (INCRUSE ELLIPTA) 62.5 MCG/INH AEPB Inhale 1 [...] thyromegaly. No carotid bruits.MENTAL / NEUROLOGICAL STATUS: [id number]: Clear to auscultation. No wheezes, rhonchi or [...] parts of this document, were dictated using FloTime software. A reasonable attempt at proofreading has beenmade to minimize errors. Please call with any questions or corrections.* Name Value Range Interpretation Code Description Data Giovana rce(s) Supporting Document(s) ID Date Data Source [id number] 02/04/2020 05:52:41 PM EDT [facility] Name Value Range Interpretation Code Description Data [facility] rce(s) Supporting Document(s) SODIUM 140 mmol/L (136-145) [facility] POTASSIUM 4.0 mmol/L (3.6-5.2) [facility] CHLORIDE 106 mmol/L (100-108) [facility] CO2 25 mmol/L (22-31) [facility] ANION GAP 9 mmol/L (7-16) [facility] UREA NITROGEN 13 mg/dL (7-24) [facility] CREATININE 1.08 mg/dL (0.80-1.30) [facility] BUN/CREAT RATIO 12.0 RATIO (10.0-20.0) [facility] GLUCOSE 100 mg/dL (70-99) H [facility] CALCIUM 9.2 mg/dL (8.4-10.2) [facility] GFR >60 ml/min/1.73m2 (>59) [facility] GFR ( AMER) >60 ml/min/1.73m2 (>59) [facility] GFR INTERPRETATION [facility] --NORMAL KIDNEY FUNCTION OR MILD DISEASE - GFR >OR= 60CHRONIC KIDNEY DISEASE - GFR 15 - 59RENAL FAILURE - GFR <15 Est. GFR calculation based on the MDRDstudy equation, which assumes a steadystate for creatinine. Est. GFR should notbe used for medication dosing. ID Date Data Source [id number] 02/04/2020 05:35:33 PM EDT [facility] Name Value Range Interpretation Code Description Data Giovana rce(s) Supporting Document(s) WBC 9.2 10*3/uL (4.1-11.0) [facility] RBC 5.75 10*6/uL (4.60-6.10) [facility] HGB 16.6 g/dL (13.5-18.0) [facility] HCT 51.0 % (41.0-53.0) [facility] MCV 88.8 fL (80.0-95.0) [facility] MCH 28.8 pg (27.0-32.0) [facility] MCHC 32.5 g/dL (32.0-36.0) [facility] RDW 14.8 % (10.5-14.5) H [facility] PLT 233 10*3/uL (150-450) [facility] MPV 8.4 fL (7.1-10.7) [facility] ID Date Data Source [id number] 02/04/2020 09:45:00 AM EDT [facility] Name Value Range Interpretation Code Description Data Giovana rce(s) Supporting Document(s) SARS coronavirus 2 RNA [facility] This lab was ordered by [facility] and reported by [employer]. ID Date Data Source [id number] 02/05/2020 07:07:45 PM EDT [facility] Name Value Range Interpretation Code Description Data Giovana rce(s) Supporting Document(s) SARS-COV-2 TYRON [facility] Not DetectedReference range: Not Detecte d Testing was performed using the hailey(R) SARS-CoV-2 test. This test was developed and its performance characteristics determined by [employer]. This test has not been FDA cleared [...] detected) result in this assay. Performed At: [address] [id number] Job Henson MD Ph:[phone] ID Date Data Source [id number] 01/31/2020 01:46:00 PM EDT [facility] BD[facility]EN WO IV CONTRASTCLINICAL [...] rce(s) Supporting Document(s) ID Date Data Source [id number] 01/27/2020 11:08:00 AM EDT [facility] 1 OrderSheet [facility] Emergency Department [address] [place] [address] Phone #: ext- [phone] 01/27/2020 11:08 Patient: [...] rce(s) Supporting Document(s) ID Date Data Source [id number] 01/27/2020 11:08:00 AM EDT [facility] 1 Medication Reconciliation Report [facility] Emergency Department [address] [place] [address] Phone #: ext- [phone] 01/27/2020 11:08 Patient: [...] ODT Oral, prn 2 Medication Reconciliation Report [facility] Emergency Department [address] [place] [address] Phone #: ext [phone] 01/27/2020 11:08 Patient: NICK TRUJILLO Sex: M : 1990 Age: 29yThe source(s) of the original Home Medication information:Not obtained.The following Medications were given to the patient in the Emergency Department:None.The following Medications were prescribed to the patient:None. Name Value Range Interpretation Code Description Data [facility] Supporting Document(s) ID Date Data Source [id number] 01/27/2020 11:08:00 AM EDT [facility] 1 Medication Administration Record [facility] Emergency Department [address] [place] [address] Phone #: ext- [phone] 01/27/2020 11:08 Patient: NICK TRUJILLO Sex: M : 1990 Age: 29yWeight: 181.4 kgHeight/Length: 71 inBMI: 55.8ALLERGIES: Dilantin, Naproxsyn, Tylenol with codeinDate/Time Medication Administered Medication Ordered Name Value Range Interpretation Code Description Data Giovana rce(s) Supporting Document(s) ID Date Data Source [id number] 01/27/2020 11:08:00 AM EDT [facility] 1 General Instructions [facility] Emergency Department [address] [place] [address] Phone #: ext- [phone] 01/27/2020 11:08 Patient: [...] instructions verbalized by patient. 2 General Instructions [facility] Emergency Department [address] [place] [address] Phone #: ext- [phone] 01/27/2020 11:08 Patient: [...] or constipation Chronic cough 3 General Instructions [facility] Emergency Department [address] [place] [address] Phone #: ext- [phone] 01/27/2020 11:08 Patient: [...] be pushed back in. 4 General Instructions [facility] Emergency Department [address] [place] [address] Phone #: [phone] iug- [phone] 01/27/2020 11:08 Patient: NICK TRUJILLO Sex: M [...] to the backCall 911 5 General Instructions [facility] Emergency Department [address] [place] [address] Phone #: ext- [phone] 01/27/2020 11:08 Patient: NICK TRUJILLO Sex: M : 1990 Age: 29yCall 911 if any of these occur: Severe pain, redness, or tenderness in the area near the hernia Pain worsens quickly and doesn't get better Inability to have a bowel movement or pass gas Fever of 100.4F (38C) or higher, or as directed by your healthcare provider [id number] [employer]. [address] [place] [address]184. All rights reserved. This information is not intended as asubstitute for professional medical care. Always follow your healthcare professional's instructions. You have been given the following additional information: Hernia (Adult) No strenuous activity.(Electronically signed by Milagros Morse MD 01/28/2020 00:50) Name Value Range Interpretation Code Description Data Giovana rce(s) Supporting Document(s) ID Date Data Source [id number] 01/27/2020 11:08:00 AM EDT [facility] 1 Clinical Report - Nurses [facility] Emergency Department [address] [place] [address] Phone #: [phone]- [phone] 01/27/2020 11:08 Patient: NIKC TRUJILLO Sex: M : 1990 Age: 29yTRIAGEHistorian: [...] --11:01/27/20 KishaoctoberCatalino 2 Clinical Report - Nurses [facility] Emergency Department [address] [place] [address] Phone #: ext- [phone] 01/27/2020 11:08 Patient: NICK TRUJILLO Sex: M : 1990 Age: 29y PROBLEMS: Renal Colic. Asthma. Hematuria. Seizure. --11:01/27/20 Suha OctoberGaby. ADDITIONAL SURGERIES: Hernia Repair. Umbilical Hernia [...] treatment room. --11:14 01/27/20 Alysha Borden R.N.PHYSICAL JAIRBKUQQX71:15 01/27/20. To room via stretcher.GENERAL / NEURO / PSYCH: Alert. Oriented X 4. Appears in no acute distress. Appears in pain.RESPIRATORY: Respirations not labored. Breath sounds within normal limits. 3 Clinical Report - Nurses [facility] Emergency Department [address] [place] [address] Phone #: ext- [phone] 01/27/2020 11:08 Patient: [...] from the left antecubital space by tech. ([id number]). --11:52 01/27/20 Phillip Drummond RN 11:43 01/27/2020 [...] Patient transported to CT by wheelchair with rn radiology. (2003). --12:01 01/27/20 Phillip Drummond RN Checked patient name and birthdate: patient confirmed. Clean catch urine collected; sample sent to lab for urinalys is. Specimen labeled in the presence of the patient ([id number]). Patient returned from CT by wheelchair with rn radiology. ([id number]). --12:29 01/27/20 Phillip Drummond RN 11:40 01/27/20. [...] Patient verbalized understanding. Written instructions provided in Palauan. The patient was discharged home and unaccompanied at time of discharge. He left ambulatory and via private vehicle. Driving (unknown). --13:30 01/27/20 Jennifer Russell R.N. 13:28 01/27/20. BP: 106/46. MAP: 66. HR: 83. RR: 20. O2 saturation: 96% on room air. Temp: 98.2 F 4 Clinical Report - Nurses [facility] Emergency Department [address] [place] [address] Phone #: ext- [phone] 01/27/2020 11:08 Patient: [...] rce(s) Supporting Document(s) ID Date Data Source [id number] 01/27/2020 11:08:00 AM EDT [facility] 1 Clinical Report - Physicians/Mid Levels [facility] Emergency Department [address] [place] [address] Phone #: ext- [phone] 01/27/2020 11:08 Patient: [...] Ellipta Inhalation, daily. 2 Clinical Report - Physicians/[facility] Emergency Department [address] [place] [address] Phone #: ext- [phone] 01/27/2020 11:08 Patient: NICK TRUJILLO Sex: M [...] EKG 3 Clinical Report - Physicians/Mid Levels [facility] Emergency Department [address] [place] [address] Phone #: ext- [phone] 01/27/2020 11:08 Patient: [...] mL/min 4 Clinical Report - Physicians/Mid Levels [facility] Emergency Department [address] [place] [address] Phone #: ext- [phone] 01/27/2020 11:08 Patient: NICK TRUJILLO Sex: M : 1990 Age: 29y Male GFR Interprentation 20-49 yrs >60 mL/min Gonano15-62 yrs >56 mL/min Normal 60-69 yrs >49 mL/min Normal 70- 79yrs>42 mL/min Normal 80 and above >35 mL/min Normal Female GFRInterpretation 20-39 yrs >60 mL/min Normal 40-49 yrs >58 mL/minNormal 50-59 yrs >51 mL/min Normal 60-69 yrs >45 mL/min Jfpemd63-64 yrs >39 mL/min Normal 80 and above >32 mL/min NormalLactic Acid: (KAVITA: 01/27/2020 11:27) ( VagRcvd 01/27/2020 12:10) Final results Test Result Flag [...] CT ABD //T// PELVIS W/ IV ONLY [facility] [address] [place] [address] PHONE: [phone] FAX: [phone] Name .................. : GAVIOTA ROMERO [place] Acct Number.................. : [id number] ROOM. ................. : TR-07 MR Number ................... : [id number] Stay type ............. : E/R Discharge Date......... ... : Admit Date ......... : 01/27/20 Admit Phys .................... : COONEYNORM Date of ....... : 1990 Family Phys ................... : MIR HARD Phone .................. : [phone] Age ................................ : 29 Film# .................. .:[id number] Sex ................................. : M Unsigned transcriptions are preliminary reports and do not represent a medical or legal document CT ABD Reason(s): Abdominal Pain 5 Clinical Report - Physicians/Mid Levels [facility] Emergency Department [address] [place] [address] Phone #: ext- [phone] 01/27/2020 11:08 Patient: [...] 370Method of administration: Intravenous [address] [place] [id number]: [phone] FAX: [phone] .................. : GVAIOTA [place] Acct Number.................. : [id number]. ................. : TR-07 MR Number ................... : [id number] type ............. : E/R Discharge Date......... ... :Admit Date ......... : 01/27/20 Admit Phys .................... : COONEYNORMDate of ....... : 1990 Family Phys ................... : HESTER HARDPhone .................. : [phone] Age ................................ : 29Film# .................. .:[id number] Sex ................................. : MUnsigned transcriptions are preliminary reports and do not represent a medical or legal document CT ABD Reason(s): Abdominal PainExamination dictated by CLYDE Gallego. Examination was reviewed with Cortez Rice MD, radiologist at the time of this dictation. Electronically Reviewed and Signed ByROSSANATGEENA SIGNDAJASMINA ARANDA 6 Clinical Report - Physicians/Mid Levels [facility] Emergency Department [address] [place] [address] Phone #: ext- [phone] 01/27/2020 11:08 Patient: NICK TURJILLO Sex: M : 1990 Age: 29y Transcribe [...] MEDICATIONS: 7 Clinical Report - Physicians/Mid Levels [facility] Emergency Department [address] [place] [address] Phone #: ext- [phone] 01/27/2020 11:08 Patient: [...] rce(s) Supporting Document(s) ID Date Data Source [id number] 01/27/2020 01:49:00 [place] [address] PHONE: [phone] FAX: [phone] Name .................. : GAVIOTA Madison Acct Number.................. : [id number] ROOM. ................. : TR-07 MR Number ................... : [id number] Stay type ............. : E/R Discharge Date......... ... : Admit Date ......... : 09/16 Admit Phys .................... : COONEYNORM Date of ....... : 1990 Family Phys ................... : HESTER HARD Phone .................. : [phone] Age ................................ : 29 Film# .................. .:[id number] Sex ................................. : M Unsigned transcriptions are preliminary reports and do not represent a medical or legal document CT ABD & PELVIS W/ IV ONLY [id number] COMPLETE:01/27/20 12:41 [facility] [id number] Reason(s): Abdominal Pain CT SCAN OF THE [...] of administration: Intravenous Page 1 of [address] [facility] [address] [place] [address] PHONE: [phone] FAX: [phone] Name .................. : GAVIOTA Madison Acct Number.................. : [id number] ROOM. ................. : TR-07 MR Number ................... : [id number] Stay type ............. : E/R Discharge Date......... ... : Admit Date ......... : 01/27/20 Admit Phys .................... : COONEYNORM Date of ....... : 1990 Family Phys ................... : HESTER HARD Phone .................. : [phone] Age ................................ : 29 Film# .................. .:[id number] Sex ................................. : M Unsigned transcriptions are preliminary reports and do not represent a medical or legal document CT ABD & PELVIS W/ IV ONLY [id number] COMPLETE:01/27/20 12:41 [facility] [place] [id number] Reason(s): Abdominal Pain Examination dictated by CLYDE Gallego. Examination was reviewed with Cortez Sinha MD, radiologist at the time of this dictation. Electronically Reviewed and Signed By CORTEZ SINHA MD , 01/27/20 13:49, [facility] Transcribe Initials: SSR, Transcribe Date: 01/27/20 12:55, Dictation Date: Copy for: 010 EMERGENCY SRV Copy for: EMERGENCY DEPT via modem Copy for: 710 MED REC Page 2 of 2 Name Value Range Interpretation Code Description Data Giovana rce(s) Supporting Document(s) ID Date Data Source [id number] 01/27/2020 12:10:00 PM EDT [facility] ([facility]) Name Value Range Interpretation Code Description Data Giovana rce(s) Supporting Document(s) Urinalysis Laboratory test result [facility] ([facility]) SOURCE: Clean Catch Source Laboratory test result [facility] ([facility]) SOURCE: Clean Catch Color Laboratory test result [facility] ([facility]) SOURCE: Clean Catch Spec [place] 1.005 1.001-1.030 [facility] ([facility]) SOURCE: Clean Catch Clarity Laboratory test result [facility] ([facility]) SOURCE: Clean Catch Bilirubin Laboratory test result [facility] ([facility]) SOURCE: Clean Catch Glucose Laboratory test result [facility] ([facility]) SOURCE: Clean Catch pH 6.5 5-9 [facility] ([facility]) SOURCE: Clean Catch Protein Laboratory test result [facility] ([facility]) SOURCE: Clean Catch Ketone Laboratory test result [facility] ([facility]) SOURCE: Clean Catch Blood Laboratory test result [facility] ([facility]) SOURCE: Clean Catch Nitrite Laboratory test result [facility] ([facility]) SOURCE: Clean Catch Microscopic Laboratory test result M [facility] ([facility]) SOURCE: Clean Catch Leuk Est 25 [facility] ([facility]) SOURCE: Clean Catch Urobilinogen Laboratory test result [facility] ([facility]) SOURCE: Clean Catch WBC Laboratory test result [facility] ([facility]) SOURCE: Clean Catch Epithelial Laboratory test result [facility] ([facility]) SOURCE: Clean Catch ID Date Data Source [id number] 01/27/2020 12:53:00 PM EDT [facility] Name Value Range Interpretation Code Description Data Giovana rce(s) Supporting Document(s) [facility] S[facility] R [facility] al COLOR yellow NORMAL: Yellow [facility] CLARITY clear NORMAL: Clear [facility] Specific gravity of Urine by Test strip 1.005 1.001 - 1.030 [facility] pH 6.5 5 - 9 [facility] al Glucose [Mass/volume] in Urine by Test strip NORM NORMAL: Negat [facility] Bilirubin.total [Presence] in Urine by Test strip NEG NORMAL: Negative [facility] Ketones [Presence] in Urine by Test strip NEG NORMAL: Negative [facility] Protein [Mass/volume] in Urine by Test strip NEG NORMAL: Negat [facility] Nitrite [Presence] in Urine by Test strip NEG NORMAL: Negative [facility] BLOOD NEG NORMAL: Negative [facility] Leukocyte esterase [Presence] in Urine by Test strip 25 MILAGROS L: Negative [facility] Urobilinogen [Mass/volume] in Urine by Test strip NOR less vanessa n 1.0 mg/dL [facility] MICROSCOPIC See Below [facility] ital WBC 0 - 1 NORMAL: NONE SEEN [facility] EPITHELIAL FEW NORMAL: NONE SEEN [facility] ID Date Data Source [id number] 01/27/2020 11:27:00 AM EDT [facility] ([facility]) Name Value Range Interpretation Code Description Data Giovana rce(s) Supporting Document(s) Lipase [Enzymatic activity/volume] in Serum or Plasma 29 U/L 13-6 0 [facility] ([facility]) ID Date Data Source [id number] 01/27/2020 11:27:00 AM EDT [facility] ([facility]) Name Value Range Interpretation Code Description Data Giovana rce(s) Supporting Document(s) Comprehensive Metabo Laboratory test result [facility] ([facility]) COMPREHENSIVE METABOLIC PANEL Sodium 138 meq/L 134-153 [facility] ([facility]) Chloride 102 meq/L 98-107 [facility] ([facility]) Potassium 3.8 meq/L 3.6-5.0 [facility] ([facility]) Co2 26 meq/L 22-30 [facility] ([facility]) Glucose 102 mg/dL 65-110 [facility] ([facility]) Creatinine 1.0 mg/dL 0.7-1.5 [facility] ([facility]) BUN 10 mg/dL 7-21 [facility] ([facility]) BUN/Creat 10 8-27 [facility] ([facility]) Albumin 4.4 g/dL 3.9-5.0 [facility] ([facility]) Globulin 3.0 GM/DL 2.4-3.2 [facility] ([facility]) Total Protein 7.4 g/dL 6.3-8.2 [facility] ([facility]) Calcium 9.3 mg/dL 8.4-10.2 [facility] ([facility]) Total Bili Laboratory test result 0.2-1.3 [place] [facility] ([facility]) A/G Ratio 1.5 0.8-2.0 [facility] ([facility]) Alkaline Phos 96 U/L 38-126 [facility] ([facility]) SGPT/Alt 27 U/L 7-56 [facility] ([facility]) Sgot/Ast 18 U/L 5-40 [facility] ([facility]) Anion Gap 10.0 mmol/L 8.0-16.0 [facility] ([facility]) Non-Aa GFR Laboratory test result [facility] ([facility]) Age 29 yrs [facility] ([facility]) Afr Amer GFR Laboratory test result [facility] ([facility]) Male GFR Interprentation 20-49 yrs >60 [...] >32 mL/min Normal ID Date Data Source [id number] 01/27/2020 11:27:00 AM EDT [facility] ([facility]) Name Value Range Interpretation Code Description Data Giovana rce(s) Supporting Document(s) CBC W/Automated Diff Laboratory test result [facility] ([facility]) COMPLETE BLOOD COUNT Hemoglobin 15.9 g/dL 14.0-16.0 [facility] ([facility]) RBC 5.61 10^6/uL 4.50-6.30 [facility] ([facility]) WBC 8.8 10^3/uL 4.2-11.0 [facility] ([facility]) Hematocrit 49.5 % 41.0-51.0 [facility] ([facility]) MCV 88.2 fL 80.0-94.0 [facility] ([facility]) MCH 28.3 pg 27.0-34.0 [facility] ([facility]) RDW 13.8 % 11.5-14.8 [facility] ([facility]) Platelets 197 10^3/uL 150-450 [facility] ([facility]) MPV 9.0 fL 7.4-10.4 [facility] ([facility]) MCHC 32.1 g/dL 31.0-36.0 [facility] ([facility]) Lymph 21.5 % 25.0-40.0 Below low normal [facility] ( [facility]) [place] 8.4 % 3.0-8.0 Above high normal [facility] ([facility]) Neut 66.9 % 37.0-80.0 [facility] ([facility]) Eos 2.7 % 0.0-7.0 [facility] ([facility]) Baso 0.2 % 0.0-2.0 [facility] ([facility]) %Ig 0.3 % 0.0-0.0 Above high normal [facility] ([facility]) #Lymph 1.90 10^3/uL 0.60-3.40 [facility] ([facility]) %NRBC 0.0 % 0.0-0.0 [facility] ([facility]) #Neut 5.91 10^3/uL 2.00-6.90 [facility] ([facility]) #Baso 0.02 10^3/uL 0.00-0.20 [facility] ([facility]) #Ig 0.03 10^3/uL 0.00-0.10 [facility] ([facility]) #Eos 0.24 10^3/uL 0.00-0.70 [facility] ([facility]) #[place] 0.74 10^3/uL 0.00-0.90 [facility] ([facility]) RBC Morph Laboratory test result [facility] ([facility]) #NRBC 0.00 10^3/uL 0.00-0.00 [facility] ([facility]) Manual Diff Laboratory test result M [facility] ([facility]) ID Date Data Source [id number] 01/27/2020 11:27:00 AM EDT [facility] ([facility]) Name Value Range Interpretation Code Description Data Giovana rce(s) Supporting Document(s) Lactate [Mass/volume] in Serum or Plasma 1.8 mmol/L 0.2-2.2 [facility] ([facility]) ID Date Data Source [id number] 01/27/2020 12:26:00 PM EDT [facility] Name Value Range Interpretation Code Description Data Giovana rce(s) Supporting Document(s) Lipase [Enzymatic activity/volume] in Serum or Plasma 29 U/L 13 - 60 [facility] ID Date Data Source [id number] 01/27/2020 12:26:00 PM EDT [facility] Name Value Range Interpretation Code Description Data Giovana rce(s) Supporting Document(s) COMPREHENSIVE METABOLIC PANEL [facility] COMPREHENSIVE METABOLIC PANEL Sodium [Moles/volume] in Serum or Plasma 138 mEq/L 134 - 153 [facility] Potassium [Moles/volume] in Serum or Plasma 3.8 mEq/L 3.6 - 5.0 [facility] Chloride [Moles/volume] in Serum or Plasma 102 mEq/L 98 - 107 [facility] Carbon dioxide, total [Moles/volume] in Serum or Plasma 26 MEQ/L 22 - 30 [facility] Glucose [Mass/volume] in Serum or Plasma 102 MG/DL 65 - 110 [facility] BUN 10 MG/DL 7 - 21 [facility] Creatinine [Mass/volume] in Serum or Plasma 1.0 MG/DL 0.7 - 1.5 [facility] BUN/CREAT 10 8 - 27 [facility] al Protein [Mass/volume] in Serum or Plasma 7.4 G/DL 6.3 - 8.2 [facility] Albumin [Mass/volume] in Serum or Plasma 4.4 G/DL 3.9 - 5.0 [facility] Globulin [Mass/volume] in Serum by calculation 3.0 GM/DL 2.4 - 3.2 [facility] A/G RATIO 1.5 0.8 - 2.0 [facility] Calcium [Mass/volume] in Serum or Plasma 9.3 MG/DL 8.4 - 10.2 [facility] Bilirubin.total [Mass/volume] in Serum or Plasma <0.7 MG/DL 0.2 - 1.3 [facility] Alkaline phosphatase [Enzymatic activity/volume] in Serum or Plasma 96 U/L 38 - 126 [facility] Aspartate aminotransferase [Enzymatic activity/volume] in Serum or Plasma 18 U/L 5 - 40 [facility] Alanine aminotransferase [Enzymatic activity/volume] in Seru m or Plasma 27 U/L 7 - 56 [facility] Anion gap 3 in Serum or Plasma 10.0 mmol/L 8.0 - 16.0 [facility] AGE 29 yrs [facility] NON-AA GFR >60 mL/min [facility] AFR AMER GFR >60 mL/min [facility] Male GFR In terprentation 20-49 [...] >32 mL/min Normal ID Date Data Source [id number] 01/27/2020 12:13:00 PM EDT [facility] Name Value Range Interpretation Code Description Data Giovana rce(s) Supporting Document(s) CBC W/AUTOMATED DIFF [facility] COMPLETE BLOOD COUNT Leukocytes [#/volume] in Blood by Automated count 8.8 10^3/uL 4.2 - 1 1.0 [facility] Erythrocytes [#/volume] in Blood by Automated count 5.61 10^6/uL 4. 50 - 6.30 [facility] Hemoglobin [Mass/volume] in Blood 15.9 g/dL 14.0 - 16.0 [facility] Hematocrit [Volume Fraction] of Blood by Automated count 49.5 % 4 1.0 - 51.0 [facility] Erythrocyte mean corpuscular volume [Entitic volume] by Auto mated count 88.2 fL 80.0 - 94.0 [facility] Erythrocyte mean corpuscular hemoglobin [Entitic mass] by Automated count 28.3 pg 27.0 - 34.0 [facility] Erythrocyte mean corpuscular hemoglobin concentration [Mass/volume] by Automated count 32.1 g/dL 31.0 - 36.0 [facility] Erythrocyte distribution width [Ratio] by Automated count 13.8 % 11.5 - 14.8 [facility] Platelets [#/volume] in Blood by Automated count 197 10^3/uL 150 - 45 0 [facility] Platelet mean volume [Entitic volume] in Blood by Automated count 9.0 fL 7.4 - 10.4 [facility] Neutrophils/100 leukocytes in Blood by Automated count 66.9 % 37. 0 - 80.0 [facility] Lymphocytes/100 leukocytes in Blood by Manual count 21.5 % 25.0 - 40.0 L [facility] Monocytes/100 leukocytes in Blood by Automated count 8.4 % 3.0 - 8.0 H [facility] Eosinophils/100 leukocytes in Blood by Automated count 2.7 % 0.0 - 7.0 [facility] Basophils/100 leukocytes in Blood by Automated count 0.2 % 0.0 - 2.0 [facility] %IG 0.3 % 0.0 - 0.0 H [facility] %NRBC 0.0 % 0.0 - 0.0 [facility] al Neutrophils [#/volume] in Blood by Automated count 5.91 10^3/uL 2.00 - 6.90 [facility] Lymphocytes [#/volume] in Blood by Automated count 1.90 10^3/uL 0.60 - 3.40 [facility] Monocytes [#/volume] in Blood by Automated count 0.74 10^3/uL 0.00 - 0.90 [facility] Eosinophils [#/volume] in Blood by Automated count 0.24 10^3/uL 0.00 - 0.70 [facility] Basophils [#/volume] in Blood by Automated count 0.02 10^3/uL 0.00 - 0.20 [facility] #IG 0.03 10^3/uL 0.00 - 0.10 [facility] ospital #NRBC 0.00 10^3/uL 0.00 - 0.00 [facility]spital MANUAL DIFF NOT INDICATED [facility] RBC MORPH NOT INDICATED [facility] spital ID Date Data Source [id number] 01/27/2020 12:10:00 PM EDT [facility] Name Value Range Interpretation Code Description Data Giovana rce(s) Supporting Document(s) Lactate [Moles/volume] in Serum or Plasma 1.8 MMOL/L 0.2 - 2.2 [facility] ID Date Data Source [id number] 01/17/2020 02:07:00 PM EDT [facility] [address] [place] [address] PHONE: [phone] FAX: [phone] Name .................. : GAVIOTA Madison Acct Number.................. : [id number] ROOM. ................. : MR Number ................... : [id number] Stay type ............. : O/P Discharge Date......... ... : 01/17/20 Admit Date ......... : 01/17/20 Admit Phys .................... : [place] ([facility]) Date of ....... : 1990 Family Phys ................... : [employer] HARD Phone .................. : [phone] Age ................................ : 29 Film# .................. .:[id number] Sex ................................. : M Unsigned transcriptions are preliminary reports and do not represent a medical or legal document [place] [id number] COMPLETE:01/17/20 10:15 BEM [id number] (REASON FOR CHEST: CHEST PAIN LEFT RIB [...] Date: 01/17/20 11:35, Dictation Date: Copy for: [address] [place] [address] REC Page 1 of 1 Name Value Range Interpretation Code Description Data Giovana rce(s) Supporting Document(s) ID Date Data Source [id number] 01/17/2020 01:27:00 PM EDT [facility] [address] [place] [address] PHONE: [phone] FAX: [phone] Name .................. : GAVIOTA Madison Acct Number.................. : [id number] ROOM. ................. : TR-02 MR Number ................... : [id number] Stay type ............. : E/R Discharge Date......... ... : 01/13/20 Admit Date ......... : 01/13/20 Admit Phys .................... : COONEYNORM Date of ....... : 1990 Family Phys ................... : MIR HARD Phone .................. : [phone] Age ................................ : 29 Film# .................. .:[id number] Sex ................................. : M Unsigned transcriptions are preliminary reports and do not represent a medical or legal document CT HEAD W/O CONTRAST [id number] COMPLETE:01/13/20 17:10 ALVAREZ [id number] Reason(s): Headache CT OF THE HEAD WITHOUT [...] Dictation Date: Copy for: EMERGENCY DEPT via [facility] Copy for: 710 MED REC DISCHARGED Page 1 of 1 Name Value Range Interpretation Code Description Data Giovana rce(s) Supporting Document(s) ID Date Data Source [id number] 01/17/2020 01:26:00 PM EDT [facility] [address] [place] [address] PHONE: [phone] FAX: [phone] Name .................. : GAVIOTA Madison Acct Number.................. : [id number] ROOM. ................. : TR-02 Number ................... : [id number] Stay type ............. : E/R Discharge Date......... ... : 01/13/20 Admit Date ......... : 01/13/20 Admit Phys .................... : COONEYNORM Date of ....... : 1990 Family Phys ................... : [employer] HARD Phone .................. : [phone] Age ................................ : 29 Film# .................. .:[id number] Sex ................................. : M Unsigned transcriptions are preliminary reports and do not represent a medical or legal document CHEST PORTABLE [id number] COMPLETE:01/13/20 14:18 ARS [id number] Reason(s): Shortness of Breath PORTABLE CHEST X-RAY: [...] Dictation Date: Copy for: EMERGENCY DEPT via [facility] Copy for: 710 MED REC DISCHARGED Page 1 of 1 Name Value Range Interpretation Code Description Data Giovana rce(s) Supporting Document(s) ID Date Data Source [id number] 01/13/2020 01:42:00 PM EDT [facility] 1 OrderSheet [facility] Emergency Department [address] [place] [address] Phone #: ext- [phone] 01/13/2020 13:41 Patient: [...] Description Priority Entered Acknowledged Initialed 2 OrderSheet [facility] Emergency Department [address] [place] [address] Phone #: ext- [phone] 01/13/2020 13:41 Patient: NICK TRUJILLO Sex: M : 1990 Age: 29y[Electronically signed by Lacho Mcfarland R.N. (20:08 01/13/2020)][Electronically signed by Milagros Morse MD (22:42 01/15/2020)][Electronically locked by Lacho Mcfarland R.N. (20:08 01/13/2020)] Name Value Range Interpretation Code Description Data Giovana rce(s) Supporting Document(s) ID Date Data Source [id number] 01/13/2020 01:42:00 PM EDT [facility] 1 Medication Reconciliation Report [facility] Emergency Department [address] [place] [address] Phone #: ext- [phone] 01/13/2020 13:41 Patient: [...] ODT Oral, prn 2 Medication Reconciliation Report [facility] Emergency Department [address] [place] [address] Phone #: ext- [phone] 01/13/2020 13:41 Patient: NICK TRUJILLO Sex: M : 1990 Age: 29yThe source(s) of the original Home Medication information:Not obtained.The following Medications were given to the patient in the Emergency Department:None.The following Medications were prescribed to the patient:None. Name Value Range Interpretation Code Description Data Giovana rce(s) Supporting Document(s) ID Date Data Source [id number] 01/13/2020 01:42:00 PM EDT [facility] 1 Medication Administration Record [facility] Emergency Department [address] [place] [address] Phone #: ext- [phone] 01/13/2020 13:41 Patient: NICK TRUJILLO Sex: M : 1990 Age: 29yWeight: 177.8 kgHeight/Length: 71 inBMI: 54.7ALLERGIES: Dilantin, Naproxsyn, Tylenol with codeinDate/Time Medication Administered Medication Ordered Name Value Range Interpretation Code Description Data Giovana rce(s) Supporting Document(s) ID Date Data Source [id number] 01/13/2020 01:42:00 PM EDT [facility] 1 General Instructions [facility] Emergency Department [address] [place] [address] Phone #: ext- [phone] 01/13/2020 13:41 Patient: [...] instructions verbalized by patient. 2 General Instructions [facility] Emergency Department [address] [place] [address] Phone #: ext- [phone] 01/13/2020 13:41 Patient: NICK TRUJILLO Sex: M : 1990 Age: 29yNo driving or operating machinery.(Electronically signed by Milagros Morse MD 01/15/2020 22:42) Name Value Range Interpretation Code Description Data Giovana rce(s) Supporting Document(s) ID Date Data Source [id number] 01/13/2020 01:42:00 PM EDT [facility] 1 Clinical Report - Nurses [facility] Emergency Department [address] [place] [address] Phone #: ext- [phone] 01/13/2020 13:41 Patient: NICK TRUJILLO Sex: M [...] Banda R.N.PROBLEMS:Hematuria.Asthma. 2 Clinical Report - Nurses [facility] Emergency Department [address] [place] [address] Phone #: ext- [phone] 01/13/2020 13:41 Patient: NICK TRUJILLO Sex: M : 1990 Age: 29y Renal Colic. Seziures. --14:01/13/20 Lacho Mcfarlnad R.N. ADDITIONAL SURGERIES: Hernia Repair. --14:01/13/20 Lacho [...] treatment room. --13:52 01/13/20 Enedina Banda R.N.PHYSICAL [id number] 01/13/20. To room via stretcher.GENERAL / NEURO / PSYCH: Alert. Oriented X 4. Appears in no acute distress. No apparent seizureactivity. Speech within normal limits. Patient appears well-nourished. 3 Clinical Report - Nurses [facility] Emergency Department [address] [place] [address] Phone #: ext- [phone] 01/13/2020 13:41 Patient: NICK TRUJILLO Sex: M [...] Mcfarland R.NShay 16:22 01/13/20. Patient transported to [place] by wheelchair with rn radiology. --16:22 01/13/20 Lacho Mcfarland R.N. 16:30 01/13/20. Patient returned from CT by stretcher with rn radiology. --16:30 01/13/20 Lacho Mcfarland R.N. 17:01 01/13/20. [...] or numbness. 4 Clinical Report - Nurses [facility] Emergency Department [address] [place] [address] Phone #: ext- [phone] 01/13/2020 13:41 Patient: NICK TRUJILLO Sex: M [...] Patient verbalized understanding. Written instructions provided in Palauan. The patient was discharged by the physician. [...] rce(s) Supporting Document(s) ID Date Data Source [id number] 01/13/2020 01:42:00 PM EDT [facility] 1 Clinical Report - Physicians/Mid Levels [facility] Emergency Department [address] [place] [address] Phone #: ext- [phone] 01/13/2020 13:41 Patient: [...] daily. 2 Clinical Report - Physicians/Mid Levels [facility] Emergency Department [address] [place] [address] Phone #: ext- [phone] 01/13/2020 13:41 Patient: [...] Progress 3 Clinical Report - Physicians/Mid Levels [facility] Emergency Department [address] [place] [address] Phone #: ext- [phone] 01/13/2020 13:41 Patient: NICK TRUJILLO Sex: M [...] 56) 4 Clinical Report - Physicians/Mid Levels [facility] Emergency Department [address] [place] [address] Phone #: ext- [phone] 01/13/2020 13:41 [id number] Sex[facility] : 1990 Age: 29y ANION [...] mL/min Normal Lipase: (KAVITA: 01/13/2020 14:13) ( [facility] 01/13/2020 14:43) Final results Test Result Flag Units (Reference) LIPASE 32 U/L (13 - 60) Lactic Acid: (KAVITA: 01/13/2020 14:13) ( [facility] 01/13/2020 14:35) Final results Test Result Flag Units (Reference) LACTIC ACID 1.9 MMOL/L (0.2 - 2.2) Urinalysis: (KAVITA: 01/13/2020 13:56) ( [facility] 01/13/2020 14:06) Final results Test Result Flag [...] Portable 1 View: (KAVITA: 01/13/2020 13:56) ( [facility] 01/13/2020 14:19) In Progress CHEST [...] any 5 Clinical Report - Physicians/Mid Levels [facility] Emergency Department [address] [place] [address] Phone #: ext- [phone] 01/13/2020 13:41 Patient: [...] patient. 6 Clinical Report - Physicians/Mid Levels [facility] Emergency Department [address] [place] [address] Phone #: owj- [phone] 01/13/2020 13:41 Patient: NICK TRUJILLO Sex: M : 1990 Age: 29y(Electronically signed by Milagros Morse MD 01/15/2020 22:42) Name Value Range Interpretation Code Description Data Giovana rce(s) Supporting Document(s) ID Date Data Source [id number] 12/31/2019 01:56:00 [place] [address] OPERATIVE SUMMARYNAME: GAVIOTA Madison DATE OF : 1990ATTENDING PHYS: SALVADOR KAMARA MD DATE: 12/31/19 MR#: [id number] OF PROCEDURE: 12/31/2019PRE-OPERATIVE DIAGNOSIS:Microscopic hematuria.POST-OPERATIVE DIAGNOSIS:Microscopic hematuria.PROCEDURE PERFORMED:Flexible cy stoscopy.ATTENDING SURGEON: Dr. Salvador Kamara.PHYSICIAN DRIER TRANSFER CAR OPERATOR: CLYDE Farias.ANESTHESIA: Local.ESTIMATED BLOOD LOSS: Minimal.COMPLICATIONS: [...] urethra. No dense or long strictures [address] [place] [address] OPERATIVE SUMMARYNAME: GAVIOTA Madison DATE OF : 1990ATTENDING PHYS: SALVADOR KAMARA MD DATE: 12/31/19 MR#: [id number] noted. The rest of the cystoscopy was [...] rce(s) Supporting Document(s) ID Date Data Source [id number] 01/13/2020 02:58:00 PM EDT [facility] ([facility]) Name Value Range Interpretation Code Description Data Giovana rce(s) Supporting Document(s) Topiramate [Mass/volume] in Serum or Plasma 8.7 ug/mL 2.0-25.0 [facility]) This test was developed and its performa nce characteristics determined by [facility]. It has not been cleared or approved by the Food and Drug Administration. Detection Limit = 1.0 ID Date Data Source [id number] 01/17/2020 08:03:00 PM EDT [facility] Name Value Range Interpretation Code Description Data Giovana rce(s) Supporting Document(s) Topiramate [Mass/volume] in Serum or Plasma 8.7 ug/mL 2.0-25.0 [facility] This test was developed and its performa nce characteristicsdetermined by [facility]. It has not been cleared or approvedby the Food and Drug Administration. Detection Limit = 1.0 ID Date Data Source [id number] 01/13/2020 02:13:00 PM EDT [facility] ([facility]) Name Value Range Interpretation Code Description Data Giovana rce(s) Supporting Document(s) CBC W/Automated Diff Laboratory test result [facility] ([facility]) COMPLETE BLOOD COUNT WBC 8.6 10^3/uL 4.2-11.0 [facility] ([facility]) RBC 5.69 10^6/uL 4.50-6.30 [facility] ([facility]) Hemoglobin 16.2 g/dL 14.0-16.0 Above high normal [facility] ([facility]) Hematocrit 50.7 % 41.0-51.0 [facility] ([facility]) MCH 28.5 pg 27.0-34.0 [facility] ([facility]) MCV 89.1 fL 80.0-94.0 [facility] ([facility]) RDW 13.7 % 11.5-14.8 [facility] ([facility]) MCHC 32.0 g/dL 31.0-36.0 [facility] ([facility]) Platelets 212 10^3/uL 150-450 [facility] ([facility]) MPV 9.0 fL 7.4-10.4 [facility] ([facility]) Neut 68.4 % 37.0-80.0 [facility] ([facility]) Lymph 20.7 % 25.0-40.0 Below low normal [facility] ( [facility]) [place] 7.7 % 3.0-8.0 [facility] ([facility]) Baso 0.1 % 0.0-2.0 [facility] ([facility]) Eos 2.9 % 0.0-7.0 [facility] ([facility]) %Ig 0.2 % 0.0-0.0 Above high normal [facility] ([facility]) #Neut 5.84 10^3/uL 2.00-6.90 [facility] ([facility]) %NRBC 0.0 % 0.0-0.0 [facility] ([facility]) #Lymph 1.77 10^3/uL 0.60-3.40 [facility] ([facility]) #Baso 0.01 10^3/uL 0.00-0.20 [facility] ([facility]) #[place] 0.66 10^3/uL 0.00-0.90 [facility] ([facility]) #Eos 0.25 10^3/uL 0.00-0.70 [facility] ([facility]) #Ig 0.02 10^3/uL 0.00-0.10 [facility] ([facility]) RBC Morph Laboratory test result [facility] ([facility]) #NRBC 0.00 10^3/uL 0.00-0.00 [facility] ([facility]) Manual Diff Laboratory test result M [facility] ([facility]) ID Date Data Source [id number] 01/13/2020 02:13:00 PM EDT [facility] ([facility]) Name Value Range Interpretation Code Description Data Giovana rce(s) Supporting Document(s) Lipase [Enzymatic activity/volume] in Serum or Plasma 32 U/L 13-6 0 [facility] ([facility]) Lactate [Mass/volume] in Serum or Plasma 1.9 mmol/L 0.2-2.2 [facility] ([facility]) ID Date Data Source [id number] 01/13/2020 02:13:00 PM EDT [facility] ([facility]) Name Value Range Interpretation Code Description Data Giovana rce(s) Supporting Document(s) Comprehensive Metabo Laboratory test result [facility] ([facility]) COMPREHENSIVE METABOLIC PANEL Sodium 143 meq/L 134-153 [facility] ([facility]) Co2 24 meq/L 22-30 [facility] ([facility]) Chloride 108 meq/L 98-107 Above high normal [facility] ([facility]) Potassium 4.0 meq/L 3.6-5.0 [facility] ([facility]) Creatinine 0.9 mg/dL 0.7-1.5 [facility] ([facility]) BUN 12 mg/dL 7-21 [facility] ([facility]) Glucose 141 mg/dL 65-110 Above high normal [facility] ([facility]) Total Protein 7.6 g/dL 6.3-8.2 [facility] ([facility]) Albumin 4.4 g/dL 3.9-5.0 [facility] ([facility]) BUN/Creat 13 8-27 [facility] ([facility]) Globulin 3.2 GM/DL 2.4-3.2 [facility] ([facility]) Calcium 9.1 mg/dL 8.4-10.2 [facility] ([facility]) A/G Ratio 1.4 0.8-2.0 [facility] ([facility]) Total Bili Laboratory test result 0.2-1.3 [facility] ([facility]) Alkaline Phos 96 U/L 38-126 [facility] ([facility]) Sgot/Ast 20 U/L 5-40 [facility] ([facility]) Age 29 yrs [facility] ([facility]) Anion Gap 11.0 mmol/L 8.0-16.0 [facility] ([facility]) SGPT/Alt 29 U/L 7-56 [facility] ([facility]) Non-Aa GFR Laboratory test result [facility] ([facility]) Afr Amer GFR Laboratory test result [facility] ([facility]) Male GFR Interprentation 20-49 yrs >60 [...] >32 mL/min Normal ID Date Data Source [id number] 01/13/2020 02:56:00 PM EDT [facility] Name Value Range Interpretation Code Description Data Giovana rce(s) Supporting Document(s) COMPREHENSIVE METABOLIC PANEL [facility] COMPREHENSIVE METABOLIC PANEL Sodium [Moles/volume] in Serum or Plasma 143 mEq/L 134 - 153 [facility] Potassium [Moles/volume] in Serum or Plasma 4.0 mEq/L 3.6 - 5.0 [facility] Chloride [Moles/volume] in Serum or Plasma 108 mEq/L 98 - 107 H [facility] Carbon dioxide, total [Moles/volume] in Serum or Plasma 24 MEQ/L 22 - 30 [facility] Glucose [Mass/volume] in Serum or Plasma 141 MG/DL 65 - 110 H [facility] BUN 12 MG/DL 7 - 21 [facility] Creatinine [Mass/volume] in Serum or Plasma 0.9 MG/DL 0.7 - 1.5 [facility] BUN/CREAT 13 8 - 27 [facility] Protein [Mass/volume] in Serum or Plasma 7.6 G/DL 6.3 - 8.2 [facility] Albumin [Mass/volume] in Serum or Plasma 4.4 G/DL 3.9 - 5.0 [facility] Globulin [Mass/volume] in Serum by calculation 3.2 GM/DL 2.4 - 3.2 [facility] A/G RATIO 1.4 0.8 - 2.0 [facility] Calcium [Mass/volume] in Serum or Plasma 9.1 MG/DL 8.4 - 10.2 [facility] Bilirubin.total [Mass/volume] in Serum or Plasma <0.7 MG/DL 0.2 - 1.3 [facility] Alkaline phosphatase [Enzymatic activity/volume] in Serum or Plasma 96 U/L 38 - 126 [facility] Aspartate aminotransferase [Enzymatic activity/volume] in Serum or Plasma 20 U/L 5 - 40 [facility] Alanine aminotransferase [Enzymatic activity/volume] in Seru m or Plasma 29 U/L 7 - 56 [facility] Anion gap 3 in Serum or Plasma 11.0 mmol/L 8.0 - 16.0 [facility] AGE 29 yrs [facility] al NON-AA GFR >60 mL/min [facility] ital AFR AMER GFR >60 mL/min [facility] Male GFR In terprentation 20-49 [...] >32 mL/min Normal ID Date Data Source [id number] 01/13/2020 02:43:00 PM EDT [facility] Name Value Range Interpretation Code Description Data Giovana rce(s) Supporting Document(s) Lipase [Enzymatic activity/volume] in Serum or Plasma 32 U/L 13 - 60 [facility] ID Date Data Source [id number] 01/13/2020 02:35:00 PM EDT [facility] Name Value Range Interpretation Code Description Data Giovana rce(s) Supporting Document(s) Lactate [Moles/volume] in Serum or Plasma 1.9 MMOL/L 0.2 - 2.2 [facility] ID Date Data Source [id number] 01/13/2020 02:27:00 PM EDT [facility] Name Value Range Interpretation Code Description Data Giovana rce(s) Supporting Document(s) CBC W/AUTOMATED DIFF [facility] COMPLETE BLOOD COUNT Leukocytes [#/volume] in Blood by Automated count 8.6 10^3/uL 4.2 - 1 1.0 [facility] Erythrocytes [#/volume] in Blood by Automated count 5.69 10^6/uL 4. 50 - 6.30 [facility] Hemoglobin [Mass/volume] in Blood 16.2 g/dL 14.0 - 16.0 H [facility] Hematocrit [Volume Fraction] of Blood by Automated count 50.7 % 4 1.0 - 51.0 [facility] Erythrocyte mean corpuscular volume [Entitic volume] by Auto mated count 89.1 fL 80.0 - 94.0 [facility] Erythrocyte mean corpuscular hemoglobin [Entitic mass] by Automated count 28.5 pg 27.0 - 34.0 [facility] Erythrocyte mean corpuscular hemoglobin concentration [Mass/volume] by Automated count 32.0 g/dL 31.0 - 36.0 [facility] Erythrocyte distribution width [Ratio] by Automated count 13.7 % 11.5 - 14.8 [facility] Platelets [#/volume] in Blood by Automated count 212 10^3/uL 150 - 45 0 [facility] Platelet mean volume [Entitic volume] in Blood by Automated count 9.0 fL 7.4 - 10.4 [facility] Neutrophils/100 leukocytes in Blood by Automated count 68.4 % 37. 0 - 80.0 [facility] Lymphocytes/100 leukocytes in Blood by Manual count 20.7 % 25.0 - 40.0 L [facility] Monocytes/100 leukocytes in Blood by Automated count 7.7 % 3.0 - 8.0 [facility] Eosinophils/100 leukocytes in Blood by Automated count 2.9 % 0.0 - 7.0 [facility] Basophils/100 leukocytes in Blood by Automated count 0.1 % 0.0 - 2.0 [facility] %IG 0.2 % 0.0 - 0.0 [facility] %NRBC 0.0 % 0.0 - 0.0 [facility] al Neutrophils [#/volume] in Blood by Automated count 5.84 10^3/uL 2.00 - 6.90 [facility] Lymphocytes [#/volume] in Blood by Automated count 1.77 10^3/uL 0.60 - 3.40 [facility] Monocytes [#/volume] in Blood by Automated count 0.66 10^3/uL 0.00 - 0.90 [facility] Eosinophils [#/volume] in Blood by Automated count 0.25 10^3/uL 0.00 - 0.70 [facility] Basophils [#/volume] in Blood by Automated count 0.01 10^3/uL 0.00 - 0.20 [facility] #IG 0.02 10^3/uL 0.00 - 0.10 [facility]spital #NRBC 0.00 10^3/uL 0.00 - 0.00 [facility] MANUAL DIFF NOT INDICATED [facility] RBC MORPH NOT INDICATED [facility] ID Date Data Source [id number] 01/13/2020 01:56:00 PM EDT [facility] ([facility]) Name Value Range Interpretation Code Description Data Giovana rce(s) Supporting Document(s) Urinalysis Laboratory test result [facility] ([facility]) URINALYSIS Source Laboratory test result [facility] ([facility]) SOURCE: Clean Catch Color Laboratory test result [facility] ([facility]) SOURCE: Clean Catch Clarity Laboratory test result [facility] ([facility]) SOURCE: Clean Catch Spec [place] 1.005 1.001-1.030 [facility] ([facility]) SOURCE: Clean Catch pH 8 5-9 [facility] ([facility]) SOURCE: Clean Catch Bilirubin Laboratory test result [facility] ([facility]) SOURCE: Clean Catch Glucose Laboratory test result [facility] ([facility]) SOURCE: Clean Catch Ketone Laboratory test result [facility] ([facility]) SOURCE: Clean Catch Protein Laboratory test result [facility] ([facility]) SOURCE: Clean Catch Blood Laboratory test result [facility] ([facility]) SOURCE: Clean Catch Nitrite Laboratory test result [facility] ([facility]) SOURCE: Clean Catch Leuk Est Laboratory test result [facility] ([facility]) SOURCE: Clean Catch Urobilinogen Laboratory test result [facility] ([facility]) SOURCE: Clean Catch Microscopic Laboratory test result M [facility] ([facility]) SOURCE: Clean Catch ID Date Data Source [id number] 01/13/2020 02:06:00 PM EDT [facility] Name Value Range Interpretation Code Description Data Giovana rce(s) Supporting Document(s) URINALYSIS [facility] giovanna URINALYSIS SOURCE R [facility] COLOR yellow NORMAL: Yellow [facility] CLARITY clear NORMAL: Clear [facility] Specific gravity of Urine by Test strip 1.005 1.001 - 1.030 [facility] pH 8 5 - 9 [facility] Glucose [Mass/volume] in Urine by Test strip NORM NORMAL: Negat rebekah [facility] Bilirubin.total [Presence] in Urine by Test strip NEG NORMAL: Negative [facility] Ketones [Presence] in Urine by Test strip NEG NORMAL: Negative [facility] Protein [Mass/volume] in Urine by Test strip NEG NORMAL: Negat rebekah [facility] Nitrite [Presence] in Urine by Test strip NEG NORMAL: Negative [facility] BLOOD NEG NORMAL: Negative [facility] Leukocyte esterase [Presence] in Urine by Test strip NEG MILAGROS L: Negative [facility] Urobilinogen [Mass/volume] in Urine by Test strip NOR less vanessa n 1.0 mg/dL [facility] MICROSCOPIC Not Indicate [facility] ID Date Data Source [id number] 01/12/2020 01:25:00 PM EDT [facility] ([facility]) Name Value Range Interpretation Code Description Data Giovana rce(s) Supporting Document(s) Ribs Unilat W/PA CXR LT Laboratory test result [facility] ([facility]) ID Date Data Source [id number] 12/28/2019 09:15:00 AM EDT [facility] ([facility]) Name Value Range Interpretation Code Description Data Giovana rce(s) Supporting Document(s) Coronavirus Covid-19 Laboratory test result [facility] ([facility]) This test was developed and its performa nce characteristics determined by [employer]. This test has not been FDA cleared [...] in this assay. ID Date Data Source [id number] 12/28/2019 09:15:00 AM EDT [facility] Name Value Range Interpretation Code Description Data Giovana rce(s) Supporting Document(s) SARS CORONAVIRUS 2 RNA [facility] This lab was ordered by [facility] Haider huerta and reported by [email or web address]. ID Date Data Source [id number] 12/30/2019 06:32:00 AM EDT [facility] Name Value Range Interpretation Code Description Data Giovana rce(s) Supporting Document(s) SARS-CoV-2, TYRON Not Detected Not Detected [facility] This test was developed and its performa nce characteristics determinedby [facility]. This test has not been FDA [...] in this assay. ID Date Data Source [id number] 11/22/2019 09:49:00 AM EDT [facility] [address] [place] [address] PHONE: [phone] FAX: [phone] Name .................. : GAVIOTA Madison Acct Number.................. : [id number] ROOM. ................. : MR Number ................... : [id number] Stay type ............. : O/P Discharge Date......... ... : 11/19/19 Admit Date ......... : 11/19/19 Admit Phys .................... : HESTER HARD Date of ....... : 1990 Family Phys ................... : HESTER HARD Phone .................. : [phone] Age ................................ : 29 Film# .................. .:[id number] Sex ................................. : M Unsigned transcriptions are preliminary reports and do not represent a medical or legal document SPINE LS COMPLETE [id number] COMPLETE:11/19/19 10:39 41133 (SPINE PROC REASON: PAIN LUMBAR SPINE X-RAY: [...] 11/19/19 15:31, Dictation Date: Copy for: 710 [facility] REC Page 1 of 1 Name Value Range Interpretation Code Description Data Giovana rce(s) Supporting Document(s) ID Date Data Source [id number] 11/22/2019 09:49:00 AM EDT [facility] [address] [place] [address] PHONE: [phone] FAX: [phone] Name .................. : GAVIOTA Madison Acct Number.................. : [id number] ROOM. ................. : MR Number ................... : [id number] Stay type ............. : O/P Discharge Date......... ... : 11/19/19 Admit Date ......... : 11/19/19 Admit Phys .................... : HESTER HARD Date of ....... : 1990 Family Phys ................... : [employer] HARD Phone .................. : [phone] Age ................................ : 29 Film# .................. .:[id number] Sex ................................. : M Unsigned transcriptions are preliminary reports and do not represent a medical or legal document SPINE THORACIC [id number] COMPLETE:11/19/19 10:39 [id number] (SPINE PROC REASON: PAIN THORACIC SPINE SERIES: [...] rce(s) Supporting Document(s) ID Date Data Source [id number] 11/18/2019 03:15:00 PM EDT [facility] ([facility]) Name Value Range Interpretation Code Description Data Giovana rce(s) Supporting Document(s) Source Laboratory test result [facility] ([facility]) Is patient fasting? N {SOURCE: Random Void~NURSE COLLECTED? N Is patient fasting? N Urinalysis Laboratory test result [facility] ([facility]) Is patient fasting? N {SOURCE: Random Void~NURSE COLLECTED? N Is patient fasting? N Color Laboratory test result [facility] ([facility]) Is patient fasting? N {SOURCE: Random Void~NURSE COLLECTED? N Is patient fasting? N Clarity Laboratory test result [facility] ([facility]) Is patient fasting? N {SOURCE: Random Void~NURSE COLLECTED? N Is patient fasting? N Glucose Laboratory test result [facility] ([facility]) Is patient fasting? N {SOURCE: Random Void~NURSE COLLECTED? N Is patient fasting? N pH 5 5-9 [facility] ([facility]) Is patient fasting? N {SOURCE: Random Void~NURSE COLLECTED? N Is patient fasting? N Spec [place] 1.015 1.001-1.030 [facility] ([facility]) Is patient fasting? N {SOURCE: Random Void~NURSE COLLECTED? N Is patient fasting? N Bilirubin Laboratory test result [facility] ([facility]) Is patient fasting? N {SOURCE: Random Void~NURSE COLLECTED? N Is patient fasting? N Protein Laboratory test result [facility] ([facility]) Is patient fasting? N {SOURCE: Random Void~NURSE COLLECTED? N Is patient fasting? N Ketone Laboratory test result [facility] ([facility]) Is patient fasting? N {SOURCE: Random Void~NURSE COLLECTED? N Is patient fasting? N Blood Laboratory test result [facility] ([facility]) Is patient fasting? N {SOURCE: Random Void~NURSE COLLECTED? N Is patient fasting? N Nitrite Laboratory test result [facility] ([facility]) Is patient fasting? N {SOURCE: Random Void~NURSE COLLECTED? N Is patient fasting? N Microscopic Laboratory test result [facility] ([facility]) Is patient fasting? N {SOURCE: Random Void~NURSE COLLECTED? N Is patient fasting? N Leuk Est Laboratory test result [facility] ([facility]) Is patient fasting? N {SOURCE: Random Void~NURSE COLLECTED? N Is patient fasting? N Urobilinogen Laboratory test result [facility] ([facility]) Is patient fasting? N {SOURCE: Random Void~NURSE COLLECTED? N Is patient fasting? N ID Date Data Source [id number] 11/18/2019 03:15:00 PM EDT [facility] ([facility]) Name Value Range Interpretation Code Description Data Giovana rce(s) Supporting Document(s) Thyrotropin [Units/volume] in Serum or Plasma 1.85 uIU/mL 0.47-5.01 [facility] ([facility]) Is patient fasting? N {SOURCE: Random Void~NURSE COLLECTED? N Is patient fasting? N Thyroxine (T4) free [Mass/volume] in Serum or Plasma 0.72 ng/dL 0.93-1.70 Below low normal [facility] ([facility]) Is patient fasting? N {SOURCE: Random Void~NURSE COLLECTED? N Is patient fasting? N Hemoglobin A1c/Hemoglobin.total in Blood 4.3 % 4.4-6.1 Below low normal [facility] ([facility]) Is patient fasting? N {SOURCE: Random Void~NURSE COLLECTED? N Is patient fasting? N ID Date Data Source [id number] 11/18/2019 03:15:00 PM EDT [facility] ([facility]) Name Value Range Interpretation Code Description Data Giovana rce(s) Supporting Document(s) Cve Panel Laboratory test result [facility] ([facility]) Is patient fasting? N {SOURCE: Random Void~NURSE COLLECTED? N Is patient fasting? N Cholesterol 220 mg/dL 131-200 Above high normal [facility] ([facility]) Is patient fasting? N {SOURCE: Random Void~NURSE COLLECTED? N Is patient fasting? N HDL 46 mg/dL 29-86 [facility] ([facility]) Is patient fasting? N {SOURCE: Random Void~NURSE COLLECTED? N Is patient fasting? N Triglycerides 250 mg/dL 35-160 Above high normal [facility] ([facility]) Is patient fasting? N {SOURCE: Random Void~NURSE COLLECTED? N Is patient fasting? N LDL/HDL 3.46 1.00-3.55 [facility] ([facility]) Is patient fasting? N {SOURCE: Random Void~NURSE COLLECTED? N Is patient fasting? N LDL 159 mg/dL 65-175 [facility] ([facility]) Is patient fasting? N {SOURCE: Random Void~NURSE COLLECTED? N Is patient fasting? N Risk Factor 4.8 3.4-4.9 [facility] ([facility]) Is patient fasting? N {SOURCE: Random Void~NURSE COLLECTED? N Is patient fasting? N ID Date Data Source [id number] 11/18/2019 03:15:00 PM EDT [facility] ([facility]) Name Value Range Interpretation Code Description Data Giovana rce(s) Supporting Document(s) Comprehensive Metabo Laboratory test result [facility] ([facility]) Is patient fasting? N {SOURCE: Random Void~NURSE COLLECTED? N Is patient fasting? N Chloride 104 meq/L 98-107 [facility] ([facility]) Is patient fasting? N {SOURCE: Random Void~NURSE COLLECTED? N Is patient fasting? N Potassium 4.0 meq/L 3.6-5.0 [facility] ([facility]) Is patient fasting? N {SOURCE: Random Void~NURSE COLLECTED? N Is patient fasting? N Sodium 142 meq/L 134-153 [facility] ([facility]) Is patient fasting? N {SOURCE: Random Void~NURSE COLLECTED? N Is patient fasting? N Co2 27 meq/L 22-30 [facility] ([facility]) Is patient fasting? N {SOURCE: Random Void~NURSE COLLECTED? N Is patient fasting? N Glucose 91 mg/dL 65-110 [facility] ([facility]) Is patient fasting? N {SOURCE: Random Void~NURSE COLLECTED? N Is patient fasting? N BUN/Creat 17 8-27 [facility] ([facility]) Is patient fasting? N {SOURCE: Random Void~NURSE COLLECTED? N Is patient fasting? N BUN 15 mg/dL 7-21 [facility] ([facility]) Is patient fasting? N {SOURCE: Random Void~NURSE COLLECTED? N Is patient fasting? N Creatinine 0.9 mg/dL 0.7-1.5 [facility] ([facility]) Is patient fasting? N {SOURCE: Random Void~NURSE COLLECTED? N Is patient fasting? N Albumin 4.4 g/dL 3.9-5.0 [facility] Is patient fasting? N {SOURCE: Random Void~NURSE COLLECTED? N Is patient fasting? N Globulin 3.2 GM/DL 2.4-3.2 [facility] ([facility]) Is patient fasting? N {SOURCE: Random Void~NURSE COLLECTED? N Is patient fasting? N Total Protein 7.6 g/dL 6.3-8.2 [facility] ([facility]) Is patient fasting? N {SOURCE: Random Void~NURSE COLLECTED? N Is patient fasting? N Calcium 9.3 mg/dL 8.4-10.2 [facility] ([facility]) Is patient fasting? N {SOURCE: Random Void~NURSE COLLECTED? N Is patient fasting? N A/G Ratio 1.4 0.8-2.0 [facility] ([facility]) Is patient fasting? N {SOURCE: Random Void~NURSE COLLECTED? N Is patient fasting? N Total Bili Laboratory test result 0.2-1.3 [facility] ([facility]) Is patient fasting? N {SOURCE: Random Void~NURSE COLLECTED? N Is patient fasting? N Alkaline Phos 114 U/L 38-126 [facility] ([facility]) Is patient fasting? N {SOURCE: Random Void~NURSE COLLECTED? N Is patient fasting? N Sgot/Ast 22 U/L 5-40 [facility] ([facility]) Is patient fasting? N {SOURCE: Random Void~NURSE COLLECTED? N Is patient fasting? N Age 29 yrs [facility] ([facility]) Is patient fasting? N {SOURCE: Random Void~NURSE COLLECTED? N Is patient fasting? N SGPT/Alt 34 U/L 7-56 [facility] ([facility]) Is patient fasting? N {SOURCE: Random Void~NURSE COLLECTED? N Is patient fasting? N Anion Gap 11.0 mmol/L 8.0-16.0 [facility] ([facility]) Is patient fasting? N {SOURCE: Random Void~NURSE COLLECTED? N Is patient fasting? N Afr Amer GFR Laboratory test result [facility] ([facility]) Is patient fasting? N {SOURCE: Random Void~NURSE COLLECTED? N Is patient fasting? N Non-Aa GFR Laboratory test result [facility] ([facility]) Is patient fasting? N {SOURCE: Random Void~NURSE COLLECTED? N Is patient fasting? N ID Date Data Source [id number] 11/18/2019 03:15:00 PM EDT [facility] ([facility]) Name Value Range Interpretation Code Description Data Giovana rce(s) Supporting Document(s) RBC 5.74 10^6/uL 4.50-6.30 [facility] ([facility]) Is patient fasting? N {SOURCE: Random Void~NURSE COLLECTED? N Is patient fasting? N CBC W/Automated Diff Laboratory test result [facility] ([facility]) Is patient fasting? N {SOURCE: Random Void~NURSE COLLECTED? N Is patient fasting? N WBC 9.5 10^3/uL 4.2-11.0 [facility] ([facility]) Is patient fasting? N {SOURCE: Random Void~NURSE COLLECTED? N Is patient fasting? N Hemoglobin 16.5 g/dL 14.0-16.0 Above high normal [facility] ([facility]) Is patient fasting? N {SOURCE: Random Void~NURSE COLLECTED? N Is patient fasting? N MCV 87.5 fL 80.0-94.0 [facility] ([facility]) Is patient fasting? N {SOURCE: Random Void~NURSE COLLECTED? N Is patient fasting? N Hematocrit 50.2 % 41.0-51.0 [facility] ([facility]) Is patient fasting? N {SOURCE: Random Void~NURSE COLLECTED? N Is patient fasting? N RDW 13.7 % 11.5-14.8 [facility] ([facility]) Is patient fasting? N {SOURCE: Random Void~NURSE COLLECTED? N Is patient fasting? N MCHC 32.9 g/dL 31.0-36.0 [facility] ([facility]) Is patient fasting? N {SOURCE: Random Void~NURSE COLLECTED? N Is patient fasting? N MCH 28.7 pg 27.0-34.0 [facility] ([facility]) Is patient fasting? N {SOURCE: Random Void~NURSE COLLECTED? N Is patient fasting? N MPV 9.2 fL 7.4-10.4 [facility] ([facility]) Is patient fasting? N {SOURCE: Random Void~NURSE COLLECTED? N Is patient fasting? N Platelets 202 10^3/uL 150-450 [facility] ([facility]) Is patient fasting? N {SOURCE: Random Void~NURSE COLLECTED? N Is patient fasting? N Neut 67.2 % 37.0-80.0 [facility] ([facility]) Is patient fasting? N {SOURCE: Random Void~NURSE COLLECTED? N Is patient fasting? N [place] 7.2 % 3.0-8.0 [facility] ([facility]) Is patient fasting? N {SOURCE: Random Void~NURSE COLLECTED? N Is patient fasting? N Eos 3.6 % 0.0-7.0 [facility] ([facility]) Is patient fasting? N {SOURCE: Random Void~NURSE COLLECTED? N Is patient fasting? N Lymph 21.5 % 25.0-40.0 Below low normal [facility] ( [facility]) Is patient fasting? N {SOURCE: Random Void~NURSE COLLECTED? N Is patient fasting? N Baso 0.2 % 0.0-2.0 [facility] ([facility]) Is patient fasting? N {SOURCE: Random Void~NURSE COLLECTED? N Is patient fasting? N %NRBC 0.0 % 0.0-0.0 [facility] ([facility]) Is patient fasting? N {SOURCE: Random Void~NURSE COLLECTED? N Is patient fasting? N %Ig 0.3 % 0.0-0.0 Above high normal [facility] ([facility]) Is patient fasting? N {SOURCE: Random Void~NURSE COLLECTED? N Is patient fasting? N #Neut 6.39 10^3/uL 2.00-6.90 [facility] ([facility]) Is patient fasting? N {SOURCE: Random Void~NURSE COLLECTED? N Is patient fasting? N #Lymph 2.04 10^3/uL 0.60-3.40 [facility] ([facility]) Is patient fasting? N {SOURCE: Random Void~NURSE COLLECTED? N Is patient fasting? N #[place] 0.68 10^3/uL 0.00-0.90 [facility] ([facility]) Is patient fasting? N {SOURCE: Random Void~NURSE COLLECTED? N Is patient fasting? N #Baso 0.02 10^3/uL 0.00-0.20 [facility] ([facility]) Is patient fasting? N {SOURCE: Random Void~NURSE COLLECTED? N Is patient fasting? N #Ig 0.03 10^3/uL 0.00-0.10 [facility] ([facility]) Is patient fasting? N {SOURCE: Random Void~NURSE COLLECTED? N Is patient fasting? N #Eos 0.34 10^3/uL 0.00-0.70 [facility] ([facility]) Is patient fasting? N {SOURCE: Random Void~NURSE COLLECTED? N Is patient fasting? N #NRBC 0.00 10^3/uL 0.00-0.00 [facility] ([facility]) Is patient fasting? N {SOURCE: Random Void~NURSE COLLECTED? N Is patient fasting? N Manual Diff Laboratory test result [facility] ([facility]) Is patient fasting? N {SOURCE: Random Void~NURSE COLLECTED? N Is patient fasting? N RBC Morph Laboratory test result [facility] ([facility]) Is patient fasting? N {SOURCE: Random Void~NURSE COLLECTED? N Is patient fasting? N ID Date Data Source [id number] 11/18/2019 07:45:00 PM EDT [facility] Name Value Range Interpretation Code Description Data Giovana rce(s) Supporting Document(s) CVE PANEL [facility] LIPID PANEL Cholesterol [Mass/volume] in Serum or Plasma 220 MG/DL 131 - 200 H [facility] Deprecated Triglyceride [Mass/volume] in Serum or Plasma 250 MG/DL 3 5 - 160 H [facility] HDL 46 MG/DL 29 - 86 [facility] Cholesterol in LDL/Cholesterol in HDL [Mass Ratio] in Serum or Plasma 159 mg/dL 65 - 175 [facility] Cholesterol.total/Cholesterol in HDL [Mass Ratio] in Serum o r Plasma 4.8 3.4 - 4.9 [facility] LDL/HDL 3.46 1.00 - 3.55 [facility] ital CVE RISK CHOL/HDL LDL/HDLMEN: 1/2 AVERAGE 3.43 1.00 AVERAGE 4.97 3.55 2X AVERAGE 9.55 6.25 3X AVERAGE 23.99 7.99WOMEN: 1/2 AVERAGE 3.27 1.47 AVERAGE 4.44 3.22 2X AVERAGE 7.05 5.03 3X AVERAGE 11.04 6.14 ID Date Data Source [id number] 11/18/2019 07:27:00 PM EDT [facility] Name Value Range Interpretation Code Description Data Giovana rce(s) Supporting Document(s) [facility]IS [facility] URINALYSIS SOURCE R [facility] al COLOR yellow NORMAL: Yellow [facility] ospital CLARITY clear NORMAL: Clear [facility] spital Specific gravity of Urine by Test strip 1.015 1.001 - 1.030 [facility] pH 5 5 - 9 [facility] al Glucose [Mass/volume] in Urine by Test strip NORM NORMAL: Negat [facility] Bilirubin.total [Presence] in Urine by Test strip NEG NORMAL: Negative [facility] Ketones [Presence] in Urine by Test strip NEG NORMAL: Negative [facility] Protein [Mass/volume] in Urine by Test strip NEG NORMAL: Negat [facility] Nitrite [Presence] in Urine by Test strip NEG NORMAL: Negative [facility] BLOOD NEG NORMAL: Negative [facility] Leukocyte esterase [Presence] in Urine by Test strip NEG MILAGROS L: Negative [facility] Urobilinogen [Mass/volume] in Urine by Test strip NOR less vanessa n 1.0 mg/dL [facility] MICROSCOPIC Not Indicate [facility] ID Date Data Source [id number] 11/18/2019 07:44:00 PM EDT [facility] Name Value Range Interpretation Code Description Data Giovana rce(s) Supporting Document(s) Hemoglobin A1c/Hemoglobin.total in Blood 4.3 % 4.4 - 6.1 L [facility] {A1]{HB] ID Date Data Source [id number] 11/18/2019 07:54:00 PM EDT [facility] Name Value Range Interpretation Code Description Data Giovana rce(s) Supporting Document(s) Thyroxine (T4) free index in Serum or Plasma by calculation 0.72 NG/DL 0.93 - 1.70 L [facility] ID Date Data Source [id number] 11/18/2019 07:54:00 PM EDT [facility] Name Value Range Interpretation Code Description Data Giovana rce(s) Supporting Document(s) Thyrotropin [Units/volume] in Serum or Plasma by Detec tion limit <= 0.05 mIU/L 1.85 uIU/mL 0.47 - 5.01 [facility] ID Date Data Source [id number] 11/18/2019 07:45:00 PM EDT [facility] Name Value Range Interpretation Code Description Data Giovana rce(s) Supporting Document(s) COMPREHENSIVE METABOLIC PANEL [facility] COMPREHENSIVE METABOLIC PANEL Sodium [Moles/volume] in Serum or Plasma 142 mEq/L 134 - 153 [facility] Potassium [Moles/volume] in Serum or Plasma 4.0 mEq/L 3.6 - 5.0 [facility] Chloride [Moles/volume] in Serum or Plasma 104 mEq/L 98 - 107 [facility] Carbon dioxide, total [Moles/volume] in Serum or Plasma 27 MEQ/L 22 - 30 [facility] Glucose [Mass/volume] in Serum or Plasma 91 MG/DL 65 - 110 [facility] BUN 15 MG/DL 7 - 21 [facility] Creatinine [Mass/volume] in Serum or Plasma 0.9 MG/DL 0.7 - 1.5 [facility] BUN/CREAT 17 8 - 27 [facility] Protein [Mass/volume] in Serum or Plasma 7.6 G/DL 6.3 - 8.2 [facility] Albumin [Mass/volume] in Serum or Plasma 4.4 G/DL 3.9 - 5.0 [facility] Globulin [Mass/volume] in Serum by calculation 3.2 GM/DL 2.4 - 3.2 [facility] A/G RATIO 1.4 0.8 - 2.0 [facility] Calcium [Mass/volume] in Serum or Plasma 9.3 MG/DL 8.4 - 10.2 [facility] Bilirubin.total [Mass/volume] in Serum or Plasma <0.7 MG/DL 0.2 - 1.3 [facility] Alkaline phosphatase [Enzymatic activity/volume] in Serum or Plasma 114 U/L 38 - 126 [facility] Aspartate aminotransferase [Enzymatic activity/volume] in Serum or Plasma 22 U/L 5 - 40 [facility] Alanine aminotransferase [Enzymatic activity/volume] in Seru m or Plasma 34 U/L 7 - 56 [facility] Anion gap 3 in Serum or Plasma 11.0 mmol/L 8.0 - 16.0 [facility] AGE 29 yrs [facility] al NON-AA GFR >60 mL/min [facility] ital AFR AMER GFR >60 mL/min [facility] Male GFR In terprentation 20-49 [...] >32 mL/min Normal ID Date Data Source [id number] 11/18/2019 07:34:00 PM EDT [facility] Name Value Range Interpretation Code Description Data Giovana rce(s) Supporting Document(s) CBC W/AUTOMATED DIFF [facility] COMPLETE BLOOD COUNT Leukocytes [#/volume] in Blood by Automated count 9.5 10^3/uL 4.2 - 1 1.0 [facility] Erythrocytes [#/volume] in Blood by Automated count 5.74 10^6/uL 4. 50 - 6.30 [facility] Hemoglobin [Mass/volume] in Blood 16.5 g/dL 14.0 - 16.0 H [facility] Hematocrit [Volume Fraction] of Blood by Automated count 50.2 % 4 1.0 - 51.0 [facility] Erythrocyte mean corpuscular volume [Entitic volume] by Auto mated count 87.5 fL 80.0 - 94.0 [facility] Erythrocyte mean corpuscular hemoglobin [Entitic mass] by Automated count 28.7 pg 27.0 - 34.0 [facility] Erythrocyte mean corpuscular hemoglobin concentration [Mass/volume] by Automated count 32.9 g/dL 31.0 - 36.0 [facility] Erythrocyte distribution width [Ratio] by Automated count 13.7 % 11.5 - 14.8 [facility] Platelets [#/volume] in Blood by Automated count 202 10^3/uL 150 - 45 0 [facility] Platelet mean volume [Entitic volume] in Blood by Automated count 9.2 fL 7.4 - 10.4 [facility] Neutrophils/100 leukocytes in Blood by Automated count 67.2 % 37. 0 - 80.0 [facility] Lymphocytes/100 leukocytes in Blood by Manual count 21.5 % 25.0 - 40.0 L [facility] Monocytes/100 leukocytes in Blood by Automated count 7.2 % 3.0 - 8.0 [facility] Eosinophils/100 leukocytes in Blood by Automated count 3.6 % 0.0 - 7.0 [facility] Basophils/100 leukocytes in Blood by Automated count 0.2 % 0.0 - 2.0 [facility] %IG 0.3 % 0.0 - 0.0 H [facility] al %NRBC 0.0 % 0.0 - 0.0 [facility] al Neutrophils [#/volume] in Blood by Automated count 6.39 10^3/uL 2.00 - 6.90 [facility] Lymphocytes [#/volume] in Blood by Automated count 2.04 10^3/uL 0.60 - 3.40 [facility] Monocytes [#/volume] in Blood by Automated count 0.68 10^3/uL 0.00 - 0.90 [facility] Eosinophils [#/volume] in Blood by Automated count 0.34 10^3/uL 0.00 - 0.70 [facility] Basophils [#/volume] in Blood by Automated count 0.02 10^3/uL 0.00 - 0.20 [facility] #IG 0.03 10^3/uL 0.00 - 0.10 [facility] #NRBC 0.00 10^3/uL 0.00 - 0.00 [facility] MANUAL DIFF NOT INDICATED [facility] RBC MORPH NOT INDICATED [facility] ID Date Data Source [id number] 11/18/2019 03:08:00 PM EDT [facility] ([facility]) Name Value Range Interpretation Code Description Data Giovana rce(s) Supporting Document(s) Spine LS Complete <pending> [facility] ([facility]) Spine Thoracic <pending> [facility] ([facility]) ID Date Data Source [id number] 10/25/2019 08:46:00 AM EDT [facility] [address] [place] [address] PHONE: [phone] FAX: [phone] Name .................. : GAVIOTA Madison Acct Number.................. : [id number] ROOM. ................. : TR-02 Number ................... : [id number] Stay type ............. : E/R Discharge Date......... ... : 10/21/19 Admit Date ......... : 10/21/19 Admit Phys .................... : KHANH LANTIGUA Date of ....... : 1990 Family Phys ................... : NO PCP Phone .................. : [phone] Age ................................ : 29 Film# .................. .:[id number] Sex ................................. : M Unsigned transcriptions are preliminary reports and do not represent a medical or legal document CT ABD & PELV W/O ORAL W/O IV [id number] COMPLETE:10/21/19 19:36 [facility] [id number] Reason(s): gross hematuria x [address] [...] fat-containing inguinal hernias. Page 1 of [address] [place] [address] PHONE: [phone] FAX: [phone] Name .................. : GAVIOTA Madison Acct Number.................. : [id number] ROOM. ................. : TR-02 MR Number ................... : [id number] Stay type ............. : E/R Discharge Date......... ... : 10/21/19 Admit Date ......... : 10/21/19 Admit Phys .................... : KHANH LANTIGUA Date of ....... : 1990 Family Phys ................... : NO PCP Phone .................. : [phone] Age ................................ : 29 Film# .................. .:[id number] Sex ................................. : M Unsigned transcriptions are preliminary reports and do not represent a medical or legal document CT ABD & PELV W/O ORAL W/O IV [id number] COMPLETE:10/21/19 19:36 [facility] [id number] Reason(s): gross hematuria x 3 weeks Evaluation [...] rce(s) Supporting Document(s) ID Date Data Source [id number] 10/21/2019 03:31:00 PM EDT [facility] 1 OrderSheet [facility] Emergency Department [address] [place] [address] Phone #: ext- [phone] 10/21/2019 15:22 Patient: [...] rce(s) Supporting Document(s) ID Date Data Source [id number] 10/21/2019 03:31:00 PM EDT [facility] 1 Medication Reconciliation Report [facility] Emergency Department [address] [place] [address] Phone #: ext- [phone] 10/21/2019 15:22 Patient: [...] Dispense 28capsule. Refills: 0. Substitution permitted.Pharmacy - [id number] [place], [place] [id number]. . -- CLYDE Milton Name Value Range Interpretation Code Description [facility] Supporting Document(s) ID Date Data Source [id number] 10/21/2019 03:31:00 PM EDT [facility] 1 Medication Administration Record [facility] Emergency Department [address] [place] [address] Phone #: ext- [phone] 10/21/2019 15:22 Patient: NICK TRUJILLO Sex: M : 1990 Age: 29yWeight: 176.4 kgHeight/Length: 71 inBMI: 54.3ALLERGIES: Naproxsyn, Tylenol with codein, DilantinDate/Time Medication Administered Medication Ordered Name Value Range Interpretation Code Description Data [facility](s) Supporting Document(s) ID Date Data Source [id number] 10/21/2019 03:31:00 PM EDT [facility] 1 General Instructions [facility] Emergency Department [address] [place] [address] Phone #: ext- [phone] 10/21/2019 15:22 Patient: [...] Dispense 28capsule. Refills: 0. Substitution permitted.Pharmacy - [id number] [facility] ; [place], [place] [id number]. .Follow-up:Follow up with your healthcare provider in [...] INFORMATIONBlood in the Urine 2 General Instructions [facility] Emergency Department [address] [place] [address] Phone #: ext- [phone] 10/21/2019 15:22 Patient: NICK TRUJILLO Sex: M [...] had blood in your 3 General Instructions [facility] Emergency Department [address] [place] [address] Phone #: ext- [phone] 10/21/2019 15:22 Patient: [...] the nose or gums or easy bruising [id number] [employer]. [address] [place] [address], [place] [address]. All rights reserved. This information is not [...] rce(s) Supporting Document(s) ID Date Data Source [id number] 10/21/2019 03:31:00 PM EDT [facility] 1 Clinical Report - Nurses [facility] Emergency Department [address] [place] [address] Phone #: ext- [phone] 10/21/2019 15:22 Patient: NICK TRUJILLO Sex: M [...] before today?". 2 Clinical Report - Nurses [facility] Emergency Department [address] [place] [address] Phone #: ext- [phone] 10/21/2019 15:22 Patient: [...] Kota Crane R.N.NURSING PROGRESS NOTESPatient transported to [place] by wheelchair with rn radiology. --16:41 10/21/19 Kota Crane R.N. 17:01 10/21/19. BP: 127/71. MAP: 89. HR: 104. RR: 18. O2 saturation: 99%. --17:02 10/21/19 [facility] Tech, [place], Tech1.DISPOSITION / DISCHARGE 17:38 10/21/19. BP: 125/78. MAP: 93. HR: 98. RR: 18. O2 saturation: 99%. Temp: 98.6 F. --17:38 10/21/19 [facility] Tech, [place], ER Tech1 Condition at departure: unchanged. Discharge instructions provided and reviewed with the patient. Reviewed medication(s). Prescription(s) sent electronically to pharmacy. Patient verbalized understanding. Written instructions provided in Palauan. The patient was discharged by the physician. He was discharged home. He left ambulatory. Patient driving. --17:41 10/21/19 Kota Crane R.N. 17:41 10/21/19. Pain level now 0/10. --17:41 10/21/19 Kota Crane R.N. 3 Clinical Report - Nurses [facility] Emergency Department [address] [place] [address] Phone #: ext- [phone] 10/21/2019 15:22 Patient: NICK TRUJILLO Sex: M : 1990 Age: 29yLocked/Released at 10/21/2019 17:42 by Kota Crane R.N. Name Value Range Interpretation Code Description Data Giovana rce(s) Supporting Document(s) ID Date Data Source [id number] 10/21/2019 03:31:00 PM EDT [facility] 1 Clinical Report - Physicians/Mid Levels [facility] Emergency Department [address] [place] [address] Phone #: ext- [phone] 10/21/2019 15:22 Patient: [...] allergies. 2 Clinical Report - Physicians/Mid Levels [facility] Emergency Department [address] [place] [address], [place] [address] Phone #: ext- [phone] 10/21/2019 15:22 Patient: NICK TRUJILLO Sex: M [...] results 3 Clinical Report - Physicians/Mid Levels [facility] Emergency Department [address] [place] [address] Phone #: ext- [phone] 10/21/2019 15:22 [id number] Sex: M : 1990 Age: 29y Test [...] treatment. 4 Clinical Report - Physicians/Mid Levels [facility] Emergency Department [address] [place] [address] Phone #: dja- [phone] 10/21/2019 15:22 Patient: NICK TRUJILLO Sex: M [...] capsule. Refills: 0. Substitution permitted. Pharmacy - [id number] [facility] ; [place], [place] [id number]. . Follow- up: Follow up with your [...] rce(s) Supporting Document(s) ID Date Data Source [id number] 10/21/2019 04:27:00 PM EDT [facility] ([facility]) Name Value Range Interpretation Code Description Data Giovana rce(s) Supporting Document(s) Comprehensive Metabo Laboratory test result [facility] ([facility]) COMPREHENSIVE METABOLIC PANEL Chloride 106 meq/L 98-107 [facility] ([facility]) Potassium 4.0 meq/L 3.6-5.0 [facility] ([facility]) Sodium 144 meq/L 134-153 [facility] ([facility]) Co2 25 meq/L 22-30 [facility] ([facility]) BUN 10 mg/dL 7-21 [facility] ([facility]) Glucose 102 mg/dL 65-110 [facility] ([facility]) Creatinine 0.8 mg/dL 0.7-1.5 [facility] ([facility]) BUN/Creat 13 8-27 [facility] ([facility]) Total Protein 7.7 g/dL 6.3-8.2 [facility] ([facility]) Albumin 4.4 g/dL 3.9-5.0 [facility] ([facility]) Globulin 3.3 GM/DL 2.4-3.2 Above high normal [facility] ([facility]) Calcium 9.1 mg/dL 8.4-10.2 [facility] ([facility]) A/G Ratio 1.3 0.8-2.0 [facility] ([facility]) Total Bili Laboratory test result 0.2-1.3 [facility] ([facility]) Alkaline Phos 104 U/L 38-126 [facility] ([facility]) Sgot/Ast 27 U/L 5-40 [facility] ([facility]) Anion Gap 13.0 mmol/L 8.0-16.0 [facility] ([facility]) SGPT/Alt 43 U/L 7-56 [facility] ([facility]) Age 29 yrs [facility] ([facility]) Afr Amer GFR Laboratory test result [facility] ([facility]) Male GFR Interprentation 20-49 yrs >60 [...] mL/min Normal Non-Aa GFR Laboratory test result [facility] ([facility]) ID Date Data Source [id number] 10/21/2019 04:27:00 PM EDT [facility] ([facility]) Name Value Range Interpretation Code Description Data Giovana rce(s) Supporting Document(s) CBC W/Automated Diff Laboratory test result [facility] ([facility]) COMPLETE BLOOD COUNT WBC 9.1 10^3/uL 4.2-11.0 [facility] ([facility]) RBC 5.69 10^6/uL 4.50-6.30 [facility] ([facility]) Hemoglobin 16.3 g/dL 14.0-16.0 Above high normal [facility] ([facility]) Hematocrit 50.9 % 41.0-51.0 [facility] ([facility]) MCV 89.5 fL 80.0-94.0 [facility] ([facility]) MCH 28.6 pg 27.0-34.0 [facility] ([facility]) RDW 13.9 % 11.5-14.8 [facility] ([facility]) MCHC 32.0 g/dL 31.0-36.0 [facility] ([facility]) MPV 8.9 fL 7.4-10.4 [facility] ([facility]) Platelets 224 10^3/uL 150-450 [facility] ([facility]) Neut 72.7 % 37.0-80.0 [facility] ([facility]) Lymph 15.4 % 25.0-40.0 Below low normal [facility] ( [facility]) [place] 9.1 % 3.0-8.0 Above high normal [facility] ([facility]) Baso 0.2 % 0.0-2.0 [facility] ([facility]) Eos 2.4 % 0.0-7.0 [facility] ([facility]) %Ig 0.2 % 0.0-0.0 Above high normal [facility] ([facility]) %NRBC 0.0 % 0.0-0.0 [facility] ([facility]) #Neut 6.61 10^3/uL 2.00-6.90 [facility] ([facility]) #[place] 0.83 10^3/uL 0.00-0.90 [facility] ([facility]) #Lymph 1.40 10^3/uL 0.60-3.40 [facility] ([facility]) #Eos 0.22 10^3/uL 0.00-0.70 [facility] ([facility]) #Baso 0.02 10^3/uL 0.00-0.20 [facility] ([facility]) #Ig 0.02 10^3/uL 0.00-0.10 [facility] ([facility]) #NRBC 0.00 10^3/uL 0.00-0.00 [facility] ([facility]) Manual Diff Laboratory test result [facility] ([facility]) RBC Morph Laboratory test result [facility] ([facility]) ID Date Data Source [id number] 10/21/2019 05:29:00 PM EDT [facility] Name Value Range Interpretation Code Description Data Giovana rce(s) Supporting Document(s) COMPREHENSIVE METABOLIC PANEL [facility] COMPREHENSIVE METABOLIC PANEL Sodium [Moles/volume] in Serum or Plasma 144 mEq/L 134 - 153 [facility] Potassium [Moles/volume] in Serum or Plasma 4.0 mEq/L 3.6 - 5.0 [facility] Chloride [Moles/volume] in Serum or Plasma 106 mEq/L 98 - 107 [facility] Carbon dioxide, total [Moles/volume] in Serum or Plasma 25 MEQ/L 22 - 30 [facility] Glucose [Mass/volume] in Serum or Plasma 102 MG/DL 65 - 110 [facility] BUN 10 MG/DL 7 - 21 [facility] Creatinine [Mass/volume] in Serum or Plasma 0.8 MG/DL 0.7 - 1.5 [facility] BUN/CREAT 13 8 - 27 [facility] al Protein [Mass/volume] in Serum or Plasma 7.7 G/DL 6.3 - 8.2 [facility] Albumin [Mass/volume] in Serum or Plasma 4.4 G/DL 3.9 - 5.0 [facility] Globulin [Mass/volume] in Serum by calculation 3.3 GM/DL 2.4 - 3.2 H [facility] A/G RATIO 1.3 0.8 - 2.0 [facility] Calcium [Mass/volume] in Serum or Plasma 9.1 MG/DL 8.4 - 10.2 [facility] Bilirubin.total [Mass/volume] in Serum or Plasma <0.7 MG/DL 0.2 - 1.3 [facility] Alkaline phosphatase [Enzymatic activity/volume] in Serum or Plasma 104 U/L 38 - 126 [facility] Aspartate aminotransferase [Enzymatic activity/volume] in Serum or Plasma 27 U/L 5 - 40 [facility] Alanine aminotransferase [Enzymatic activity/volume] in Seru m or Plasma 43 U/L 7 - 56 [facility] Anion gap 3 in Serum or Plasma 13.0 mmol/L 8.0 - 16.0 [facility] AGE 29 yrs [facility] NON-AA GFR >60 mL/min [facility] AFR AMER GFR >60 mL/min [facility] Male GFR In terprentation 20-49 [...] >32 mL/min Normal ID Date Data Source [id number] 10/21/2019 04:43:00 PM EDT [facility] Name Value Range Interpretation Code Description Data Giovana rce(s) Supporting Document(s) CBC W/AUTOMATED DIFF [facility] COMPLETE BLOOD COUNT Leukocytes [#/volume] in Blood by Automated count 9.1 10^3/uL 4.2 - 1 1.0 [facility] Erythrocytes [#/volume] in Blood by Automated count 5.69 10^6/uL 4. 50 - 6.30 [facility] Hemoglobin [Mass/volume] in Blood 16.3 g/dL 14.0 - 16.0 H [facility] Hematocrit [Volume Fraction] of Blood by Automated count 50.9 % 4 1.0 - 51.0 [facility] Erythrocyte mean corpuscular volume [Entitic volume] by Auto mated count 89.5 fL 80.0 - 94.0 [facility] Erythrocyte mean corpuscular hemoglobin [Entitic mass] by Automated count 28.6 pg 27.0 - 34.0 [facility] Erythrocyte mean corpuscular hemoglobin concentration [Mass/volume] by Automated count 32.0 g/dL 31.0 - 36.0 [facility] Erythrocyte distribution width [Ratio] by Automated count 13.9 % 11.5 - 14.8 [facility] Platelets [#/volume] in Blood by Automated count 224 10^3/uL 150 - 45 0 [facility] Platelet mean volume [Entitic volume] in Blood by Automated count 8.9 fL 7.4 - 10.4 [facility] Neutrophils/100 leukocytes in Blood by Automated count 72.7 % 37. 0 - 80.0 [facility] Lymphocytes/100 leukocytes in Blood by Manual count 15.4 % 25.0 - 40.0 L [facility] Monocytes/100 leukocytes in Blood by Automated count 9.1 % 3.0 - 8.0 H [facility] Eosinophils/100 leukocytes in Blood by Automated count 2.4 % 0.0 - 7.0 [facility] Basophils/100 leukocytes in Blood by Automated count 0.2 % 0.0 - 2.0 [facility] %IG 0.2 % 0.0 - 0.0 [facility] %[facility] 0.0 % 0.0 - 0.0 [facility] al Neutrophils [#/volume] in Blood by Automated count 6.61 10^3/uL 2.00 - 6.90 [facility] Lymphocytes [#/volume] in Blood by Automated count 1.40 10^3/uL 0.60 - 3.40 [facility] Monocytes [#/volume] in Blood by Automated count 0.83 10^3/uL 0.00 - 0.90 [facility] Eosinophils [#/volume] in Blood by Automated count 0.22 10^3/uL 0.00 - 0.70 [facility] Basophils [#/volume] in Blood by Automated count 0.02 10^3/uL 0.00 - 0.20 [facility] #IG 0.02 10^3/uL 0.00 - 0.10 [facility] ospital #NRBC 0.00 10^3/uL 0.00 - 0.00 [facility]ital MANUAL DIFF NOT INDICATED [facility] RBC MORPH NOT INDICATED [facility] ID Date Data Source [id number] 10/21/2019 03:35:00 PM EDT [facility] ([facility]) Name Value Range Interpretation Code Description Data Giovana rce(s) Supporting Document(s) Urinalysis Laboratory test result [facility] ([facility]) SOURCE: Clean Catch Source Laboratory test result [facility] ([facility]) SOURCE: Clean Catch Color Laboratory test result [facility] ([facility]) SOURCE: Clean Catch pH 5 5-9 [facility] ([facility]) SOURCE: Clean Catch Clarity Laboratory test result [facility] ([facility]) SOURCE: Clean Catch Spec [place] 1.010 1.001-1.030 [facility] ([facility]) SOURCE: Clean Catch Glucose Laboratory test result [facility] ([facility]) SOURCE: Clean Catch Bilirubin Laboratory test result [facility] ([facility]) SOURCE: Clean Catch Ketone Laboratory test result [facility] ([facility]) SOURCE: Clean Catch Protein Laboratory test result [facility] ([facility]) SOURCE: Clean Catch Blood 10 Abnormal (applies to non-numeric res ults) [facility] ([facility]) SOURCE: Clean Catch Nitrite Laboratory test result [facility] ([facility]) SOURCE: Clean Catch Urobilinogen Laboratory test result [facility] ([facility]) SOURCE: Clean Catch Leuk Est Laboratory test result [facility] ([facility]) SOURCE: Clean Catch RBC Laboratory test result [facility] ([facility]) SOURCE: Clean Catch Microscopic Laboratory test result [facility] ([facility]) SOURCE: Clean Catch Epithelial Laboratory test result [facility] ([facility]) SOURCE: Clean Catch ID Date Data Source [id number] 10/21/2019 04:12:00 PM EDT [facility] Name Value Range Interpretation Code Description Data Giovana rce(s) Supporting Document(s) URINALYSIS [facility] giovanna URINALYSIS SOURCE Clean Catch [facility] COLOR yellow NORMAL: Yellow [facility] CLARITY clear NORMAL: Clear [place] [facility] Specific gravity of Urine by Test strip 1.010 1.001 - 1.030 [facility] pH 5 5 - 9 [facility] Glucose [Mass/volume] in Urine by Test strip NORM NORMAL: Negat rebekah [facility] Bilirubin.total [Presence] in Urine by Test strip NEG NORMAL: Negative [facility] Ketones [Presence] in Urine by Test strip NEG NORMAL: Negative [facility] Protein [Mass/volume] in Urine by Test strip NEG NORMAL: Negat [facility] Nitrite [Presence] in Urine by Test strip NEG NORMAL: Negative [facility] BLOOD 10 NORMAL: Negative A [facility] Leukocyte esterase [Presence] in Urine by Test strip NEG MILAGROS L: Negative [facility] Urobilinogen [Mass/volume] in Urine by Test strip NOR less vanessa n 1.0 mg/dL [facility] MICROSCOPIC See Below [facility] ital Erythrocytes [#/volume] in Urine by Test strip 0 - 1 NORMAL: NON E SEEN [facility] EPITHELIAL FEW NORMAL: NONE SEEN [facility] ID Date Data Source [id number] 09/14/2019 03:51:00 PM [facility] Patient Name: NICK TRUJILLO : 1990 Sex: M Pt Unit #: [id number] Location:[facility] Provider: Visit Date/Time: 09/14/19 Primary Insurance: [facility] Secondary Insurance: Self Pay Intake Vital [...] arrange this because he is moving to [facility] [facility] this month and it may be hard to keep appointments. Here with forms for DSS to get some home health services. He seems to identify the problem with his right foot as the main reason for this. He has been seeing a surgeon in [place] for this and they are apparently recommending [...] of unspecified foot, initial encounter SNOMED Code(s): 933674282 Category: Medical Plan - Kota Anderson MD: Possibly soft tissue but worth doing an X ray to look at possible fractures. Continue conservative treatment. Encouraged him to consider taking Tylenol more often. (2) Low back pain at multiple sites: Status: Acute Code(s): M54.5 - Low back pain SNOMED Code(s): 217762863 Category: Medical Plan - Kota Anderson MD: [...] rce(s) Supporting Document(s) ID Date Data Source [id number] 08/12/2019 02:08:00 PM [facility] Patient Name: NICK TRUJILLO : 1990 Sex: M Pt Unit #: [id number] Location:[facility] Provider: Visit Date/Time: 08/12/19 Primary Insurance: [facility] Secondary Insurance: Self Pay Intake Vital [...] states medicine Dr. Anderson prescribed is working [employer] Required: No Is patient in pain?: Yes [...] offer been met?: Patient reports past refusal [facility] Medical History Acne (Chronic) Acne vulgaris (Acute [...] obesity due to excess calories SNOMED Code(s): 105937670 Category: Medical Electronically Signed By: <Electronically signed by Lance Arenas DO> Date/Time Signed: 08/12/19 1432 Name Value Range Interpretation Code Description Data Giovana rce(s) Supporting Document(s) Procedure Social History Code Duration Value Status Description Data Source(s ) Alcohol intake 06/28/2020 12:00:00 AM EST Current non-d roscoe of alcohol (finding) completed Current non-drinker of alcohol (finding) [facility] Tobacco use and exposure 06/28/2020 12:00:00 AM EST Never used co mpleted Never used [facility] Smoking 06/28/2020 12:00:00 AM EST Never smoker completed Never s [facility] Alcohol intake 06/06/2020 12:00:00 AM EST Current non-d roscoe of alcohol (finding) completed Current non-drinker of alcohol (finding) [facility] Alcohol intake 05/09/2020 12:00:00 AM EDT Current non-d roscoe of alcohol (finding) completed Current non-drinker of alcohol (finding) [facility] Alcohol intake 04/26/2020 12:00:00 AM EDT Current non-d roscoe of alcohol (finding) completed Current non-drinker of alcohol (finding) [facility] Alcohol intake 02/09/2020 12:00:00 AM EDT No completed [facility] Smoking 02/09/2020 12:00:00 AM EDT Never smoker completed Never s [facility] Alcohol intake 02/04/2020 12:00:00 AM EDT No completed [facility] Smoking 02/04/2020 12:00:00 AM EDT Never smoker completed Never s [facility] Caffeine Use Details 10/06/2019 12:00:00 AM EDT completed [facility] ([facility]) 10/06/2019 12:00:00 AM EDT Never smoked tobacco comple sheri Never smoked tobacco [facility] Smoking 10/06/2019 12:00:00 AM EDT Never smoker completed Never s moker [facility] ([facility]) 09/14/2019 03:51:40 PM EST Never smoker completed Never s [facility] Smoking 09/14/2019 03:51:00 PM EST Never smoker completed Never s [facility] 08/12/2019 02:22:00 PM EST Never smoker completed Never s [facility] 08/12/2019 02:22:00 PM EST No completed No [facility] 08/12/2019 02:22:00 PM EST No completed No [facility] Vital Signs ID Date Data Source UNK Name Value Range Interpretation Code Description Data Source(s) Diastolic blood pressure 82 mm[Hg] 82 mm[Hg] eCW1 ([facility]) Systolic blood pressure 136 mm[Hg] 136 mm[Hg] e CW1 ([facility]) Body mass index (BMI) [Ratio] 59.41 kg/m2 59.41 kg/m2 W1 ([facility]) Body height 71 [in_i] 71 [in_i] eCW1 ([facility]) Body weight 426 [lb_av] 426 [lb_av] eCW1 ([facility]) Diastolic blood pressure 92 mm[Hg] 92 mm[Hg] W1 ([facility]) Systolic blood pressure 138 mm[Hg] 138 mm[Hg] e CW1 ([facility]) Body mass index (BMI) [Ratio] 57.46 kg/m2 57.46 kg/m2 W1 ([facility]) Body height 71 [in_i] 71 [in_i] eCW1 ([facility]) Body weight 412 [lb_av] 412 [lb_av] eCW1 ([facility]) Body weight 180.986 kg 180.986 kg MEDENT ([facility]) Body weight 399.00 [lb_av] 399.00 [lb_av] MEDEN T ([facility]) Oxygen saturation in Arterial blood by Pulse oximetry 98 % 98 % [facility] ([facility]) Respiratory rate 18 /min 18 /min [facility] ( [facility]) Body temperature 97.6 [degF] 97.6 [degF] MEDENT ([facility]) Heart rate 96 /min 96 /min MEDENT ([facility]) Diastolic blood pressure 78 mm[Hg] 78 mm[Hg] MED[facility] ([facility]) Systolic blood pressure 132 mm[Hg] 132 mm[Hg] M EDENT ([facility]) Diastolic blood pressure 61 mm[Hg] 61 mm[Hg] [facility] Systolic blood pressure 120 mm[Hg] 120 mm[Hg] [facility] Oxygen saturation in Arterial blood by Pulse oximetry 93 % 93 % [facility] Body temperature 36.[address] [facility] Respiratory rate 16 /min 16 /min [facility] Heart rate 88 /min 88 /min [facility] Body mass index (BMI) [Ratio] 55.37 kg/m2 55.37 kg/m2 [facility] Body weight 180.078 kg 180.078 kg [facility] Body height 180.3 cm 180.3 cm [facility] Oxygen saturation in Arterial blood by Pulse oximetry 95 % 95 % [facility] Body mass index (BMI) [Ratio] 55.50 kg/m2 55.50 kg/m2 [facility] Body weight 180.486 kg 180.486 kg [facility] Body height 180.3 cm 180.3 cm [facility] Heart rate 96 /min 96 /min [facility] Diastolic blood pressure 61 mm[Hg] 61 mm[Hg] [facility] Systolic blood pressure 112 mm[Hg] 112 mm[Hg] [facility] Body weight 180.533 kg 180.533 kg [...] Body weight 180.533 kg 180.533 kg MEDENT ([facility]) Body weight 398.00 [lb_av] 398.00 [lb_av] MEDEN T ([facility]) Oxygen saturation in Arterial blood by Pulse oximetry 97 % 97 % [facility] ([facility]) Respiratory rate 22 /min 22 /min [facility]) Body temperature 97.6 [degF] 97.6 [degF] MED[facility] ([facility]) Heart rate 86 /min 86 /min [facility] ([facility]) Diastolic blood pressure 72 mm[Hg] 72 mm[Hg] [facility] Systolic blood pressure 130 mm[Hg] 130 mm[Hg] M EDENT ([facility]) Body surface area 2.79 m2 2.79 m2 [facility] ([facility]) Body mass index (BMI) [Ratio] 54.1 kg/m2 54.1 k g/m2 [facility] ([facility]) Body height 71 [in_i] 71 [in_i] [facility] ([facility]) 5'11" Body weight 175.997 kg 175.997 kg [facility] ([facility]) per chart Body weight 388.00 [lb_av] 388.00 [lb_av] MEDEN T ([facility]) Body surface area 2.79 m2 2.79 m2 [facility] ([facility]) Body mass index (BMI) [Ratio] 54.1 kg/m2 54.1 k g/m2 [facility] ([facility]) Body height 71 [in_i] 71 [in_i] [facility] ([facility]) 5'11" Body weight 175.997 kg 175.997 kg MEDENT ([facility]) Body weight 388.00 [lb_av] 388.00 [lb_av] MEDEN T ([facility]) Oxygen saturation in Arterial blood by Pulse oximetry 96 % 96 % [facility] ([facility]) Respiratory rate 24 /min 24 /min [facility]) wearing mask Body temperature 97.8 [degF] 97.8 [degF] [facility] ([facility]) Heart rate 76 /min 76 /min [facility] ([facility]) Diastolic blood pressure 58 mm[Hg] 58 mm[Hg] [facility] ([facility]) Systolic blood pressure 126 mm[Hg] 126 mm[Hg] [facility] Body surface area 2.78 m2 2.78 m2 [facility] ([facility]) Body mass index (BMI) [Ratio] 53.6 kg/m2 53.6 k g/m2 [facility] ([facility]) Body height 71 [in_i] 71 [in_i] [facility] ([facility]) 5'11" Body weight 174.296 kg 174.296 kg MED[facility] ([facility]) Body weight 384.25 [lb_av] 384.25 [lb_av] MEDEN T ([facility]) Oxygen saturation in Arterial blood by Pulse oximetry 98 % 98 % [facility] ([facility]) Respiratory rate 18 /min 18 /min [facility] ( [facility]) Body temperature 98.0 [degF] 98.0 [degF] [facility] ([facility]) Heart rate 94 /min 94 /min [facility] ([facility]) Diastolic blood pressure 64 mm[Hg] 64 mm[Hg] [facility] ([facility]) Systolic blood pressure 118 mm[Hg] 118 mm[Hg] [facility] Heart rate 92 /min 92 /min [facility] ([facility]) Diastolic blood pressure 88 mm[Hg] 88 mm[Hg] [facility] ([facility]) Systolic blood pressure 140 mm[Hg] 140 mm[Hg] N extGen ([facility]) ID Date Data Source [id number] 06/09/2020 09:34:40 AM EST [facility] Name Value Range Interpretation Code Description Data Source(s) WEIGHT RECORDED 417.6 lb 417.6 lb [facility] Body height Measured 70.98 in 70.98 in [facility] ID Date Data Source [id number] 05/09/2020 02:17:55 PM EDT [facility] Name Value Range Interpretation Code Description Data Source(s) WEIGHT RECORDED 407 lb 407 lb [facility] Body height Measured 70.98 in 70.98 in [facility] ID Date Data Source [id number] 01/14/2020 09:34:45 AM EDT [facility] Name Value Range Interpretation Code Description Data Source(s) WEIGHT RECORDED 384.00 pounds 384.00 pounds [facility] Height 71 Inches 071 Inches [facility] Patient Treatment Plan of Care Planned Activity Planned Date Details Description Data Source (s) Misc. Devices (DURABLE MEDICAL EQUIPMENT SEE SIG) XX M ISC 06/28/2020 12:00:00 AM [facility] Clindamycin 0.01 MG/MG Topical Gel 06/12/2020 12:00:00 AM EST eCW1 ([facility]) Cephalexin 500 MG Oral Capsule 06/06/2020 01:30:00 PM [facility] lidocaine (XYLOCAINE) 2 % urojet 20 mL 06/06/2020 01:30:00 PM [facility] Doxycycline Monohydrate 50 MG Oral Capsule 05/15/2020 12:00:00 AM E DT eCW1 ([facility]) ciclopirox 10 MG/ML Medicated Shampoo 05/15/2020 12:00:00 AM EDT eCW1 ([facility]) alclometasone dipropionate 0.5 MG/ML Topical Cream 05/15/2020 12 :00:00 AM EDT eCW1 ([facility]) Doxycycline Monohydrate 50 MG Oral Capsule 05/15/2020 12:00:00 AM E DT eCW1 ([facility]) ciclopirox 10 MG/ML Medicated Shampoo 05/15/2020 12:00:00 AM EDT eCW1 ([facility]) alclometasone dipropionate 0.5 MG/ML Topical Cream 05/15/2020 12 :00:00 AM EDT eCW1 ([facility]) Doxycycline Monohydrate 50 MG Oral Capsule 05/15/2020 12:00:00 AM E DT eCW1 ([facility]) ciclopirox 10 MG/ML Medicated Shampoo 05/15/2020 12:00:00 AM EDT eCW1 ([facility]) alclometasone dipropionate 0.5 MG/ML Topical Cream 05/15/2020 12 :00:00 AM EDT eCW1 ([facility]) alclometasone dipropionate 0.5 MG/ML Topical Cream 05/15/2020 12 :00:00 AM EDT eCW1 ([facility]) Doxycycline Monohydrate 50 MG Oral Capsule 05/15/2020 12:00:00 AM E DT eCW1 ([facility]) ciclopirox 10 MG/ML Medicated Shampoo 05/15/2020 12:00:00 AM EDT eCW1 ([facility]) Docusate Sodium 100 MG Oral Capsule [DOK] 04/07/2020 12:00:00 AM ED [facility] Desvenlafaxine Succinate ER 100 MG Oral Tablet Extended Release 24 Hour (PRISTIQ) 04/07/2020 12:00:00 AM EDT [facility] Nystatin 100 UNT/MG Topical Powder 03/27/2020 12:00:00 AM [facility] Oxycodone Hydrochloride 5 MG Oral Tablet 02/09/2020 12:00:00 AM EDT [facility] Misc. Devices (DURABLE MEDICAL EQUIPMENT SEE SIG) [facility] 10/09/2018 12:00:00 AM [facility] gabapentin 100 MG Oral Capsule [facility]idocaine/diphenhydrAMINE (RADIATION MIXTURE) 1 :1:1 oral suspension 05/29/2017 12:00:00 AM EDT [facility] Melatonin 3 MG Oral Tablet [facility] doxycycline hyclate 50 MG Oral Capsule [facility] PARoxetine (PAXIL) 30 MG tablet [facility]
[2020-08-17 22:00] VITALS: BP 131/82
--- NOTE | 2020-08-17 22:34 | REPVR ---
PROCEDURE INFORMATION: Exam: CT Abdomen And Pelvis With Contrast Exam date and time: 08/17/2020 9:52 PM Age: 29 years old Clinical indication: Abdominal pain; Generalized; Additional info: Generalized abd pain TECHNIQUE: Imaging protocol: Computed tomography of the abdomen and pelvis with intravenous contrast. Axial, coronal and sagittal reformatted images were created and reviewed. Radiation optimization: All CT scans at this facility use at least one of these dose optimization techniques: automated exposure control; mA and/or kV adjustment per patient size (includes targeted exams where dose is matched to clinical indication); or iterative reconstruction. Contrast material: ISOVUE 370; Contrast volume: 100 ml; Contrast route: INTRAVENOUS (IV); COMPARISON: CT ABD/PEL W/IV CONTRAST ONLY 08/09/2020 6:01 PM FINDINGS: Liver: Mild hepatomegaly. Mild, diffuse hepatic steatosis. Gallbladder and bile ducts: Status post cholecystectomy. No biliary ductal dilatation. Pancreas: Unremarkable. Spleen: Unremarkable. Adrenal glands: Normal. No mass. Kidneys and ureters: 2.3 x 1.8 cm low-density left renal cyst (no follow-up is indicated based on the imaging appearance). No radiodense calculi. No hydronephrosis. Stomach and bowel: No bowel wall thickening. No obstruction. No pneumatosis. Appendix: Status post appendectomy. Intraperitoneal space: No free fluid. No organized fluid collection. No free air. Vasculature: Unremarkable. No aneurysm. Lymph nodes: No pathologically enlarged lymph nodes. Urinary bladder: Unremarkable as visualized. Reproductive: Unremarkable. Bones/joints: No acute osseous abnormality. Mild degenerative changes. Soft tissues: Fat containing supraumbilical, left infraumbilical and bilateral inguinal hernias. IMPRESSION: 1. No CT evidence of acute intra-abdominal or pelvic pathology. 2. Additional findings, as above. COMMENTS: Consistent with the [employer]'s Incidental Findings Committee white paper (J Am Homer Radiol 2018): Any incidental renal lesion less than 1 cm or classified as too small to characterize, or any incidental cystic renal lesion characterized as simple-appearing, is likely benign. No follow-up imaging is recommended for these lesions per consensus recommendations based on imaging criteria. Electronically signed by: Jeff Parekh On 08/17/2020 22:33:57 PM
[2020-08-17] MEDS ORDERED: REGL10TA6 PO (23:10)
[2020-08-17] MEDS ORDERED: ACETAMINOPHEN 500 MG TAB PO ONE (23:15)
[2020-08-17] MEDS ORDERED: METOCLOPRAMIDE 10 MG TAB PO ONE (23:15)
== END 2020-08-17 23:54 | disposition home or self-care (01) ==
LOC: M ED 19:46
DX: K52.9 Noninfective gastroenteritis and colitis, unspecified (principal); N28.1 Cyst of kidney, acquired; R16.0 Hepatomegaly, not elsewhere classified; K76.0 Fatty (change of) liver, not elsewhere classified; I10 Essential (primary) hypertension; G43.909 Migraine, unspecified, not intractable, without status migrainosus; G40.909 Epilepsy, unspecified, not intractable, without status epilepticus; J30.2 Other seasonal allergic rhinitis; Z88.6 Allergy status to analgesic agent; Z88.8 Allergy status to other drugs, medicaments and biological substances; Z79.899 Other long term (current) drug therapy; Z79.51 Long term (current) use of inhaled steroids
CPT/HCPCS: 74177; 80048; 80076; 83690; 85025; 96374; 99284; J2405; Q9967

== ENCOUNTER 2020-08-24 17:56 | Emergency (ER) | payer OTHER ==
[~2020-08-24] VITALS: Ht 180.3 cm; Wt 184.4 kg
[~2020-08-24 17:56] MED LIST changes: +REGL10TA6 PO
--- OUTSIDE RECORDS SUMMARY | 2020-08-24 18:06 | CCD | Continuity of Care Document ---
Author Author Davie SHEARER M.D. Organization Unknown Address [address] [place] [address], [address] [place] [address] Phone [phone] Care Team Providers Care Perinatology Physician Name Role Phone Jah Lamb M.D. AUTM [phone] Nicola Alvarado D.O. AUTM [phone] Problems Active Problems Provider Date Allergic asthma without status asthmaticus Joan glass M.D. Onset: 02/06/2011 Disturbance of consciousness Joan Null M.D. O nset: 02/06/2011 Chronic obstructive lung disease Nay Saucedo Onset: 02/06/2011 Difficulty breathing Joan Null M.D. Onset: Gastroesophageal reflux disease Eliane Saucedo Onset: 02/06/2011 Morbid obesity Joan Null M.D. Onset: Obstructive sleep apnea syndrome Nay Saucedo Onset: 02/06/2011 Disorders of initiating and maintaining sleep Joan vela M.D. Onset: 02/06/2011 Essential hypertension Simone Shearer M.D. Onset: Social History Type Date Description Comments Sex Unknown ETOH Use Denies alcohol use Recreational Drug Use Denies Drug Use Tobacco Use Start: Unknown Denies Smoking Smoking Status Reviewed: 08/17/20 Denies Smoking Allergies, Adverse Reactions, Alerts Active Allergies Reaction Severity Comments Date Dilantin 01/17/2010 Tylenol W/Codeine 01/17/2010 Naproxen 01/17/2010 Codeine Skin Rashes/Hives 04/28/2007 Medications Active Medications SIG Qnty Indications Ordering Provide r Date Ibuprofen 600mg Tablets 1 by mouth every 8 hours as needed for chest wall pain 60tabs M94.0 Cesar Peterson MD 08/19/[address] Take One Capsule By Mouth Twice A Day For Reflux 60caps Cesar carpenter MD 11/17/2015 Albuterol Sulfate (2 .5mg/3ML) 0.083% Nebulizer Via Neb tid prn Unknown Amlodipine Besylate 10mg Tablets 1 by mouth every day Unknown Cetirizine HCL 10mg Tablets 1 by mouth every day Unknown Topamax 200mg Tablets 1Tab PO bid Unknown Vitamin D (Ergocalciferol) [id number] Capsules 1 tab by mouth every week Unknown Montelukast Sodium 10mg Tablets 1 by mouth every day Unknown Doxycycline Monohydrate 50mg Table ts 1 by mouth twice a day Unknown Mirtazapine 15mg Tablets Take One Tablet By Mouth Every Day Unknown Incruse Ellipta 62.5mcg/Inh Aeroso l Inhale One puff By Mouth Daily Unknown 00 BIPAP Device 20/16 [facility] Unknown Levetiracetam 500mg Tablets Take One Tablet By Mouth Twice A Day Unknown Dok 100mg Capsules Take One Capsule By Mouth Every Day Unknown Immunizations CPT Code Status Date Vaccine Reaction Lot # [id number] Given 03/28/2010 TB Intradermal Test Negative per pt Vital Signs Date Vital Result Comment 08/23/2020 1:52pm BP Systolic 154 mmHg BP Diastolic 88 mmHg Height 71 inches 5'11" Weight 409.12 lb BMI (Body Mass Index) 57.1 kg/m2 [facility] Weight 172 lb Weight 185.579 kg BSA (Body Surface Area) 2.86 m2 08/17/2020 1:00pm BP Systolic 122 mmHg BP Diastolic 80 mmHg Heart Rate 99 /min O2 % BldC Oximetry 99 % Body Temperature 96.8 F Height 69 inches 5'9" Weight 406.00 lb BMI (Body Mass Index) 59.9 kg/m2 [facility] Body Weight 160 lb Neck Circumference in inches 20.5 [place] Score 6 Weight 184.162 kg BSA (Body Surface Area) 2.79 m2 Results Description No Information Available Procedures Description No Information Available Medical Devices Description No Information Available Encounters Type Date Location Provider Dx Diagnosis Office Visit 08/17/2020 1:15p [facility] Pulmonary/Thoracic Stephen Leon N.PShay G47.33 Obstructive sleep apnea (adult) (pediatr ic) R06.00 Dyspnea, unspecified R05 Cough Assessments Date Code Description Provider 08/17/2020 G47.33 Obstructive sleep apnea (adult) (pediatric) Esme Leon N.P. 08/17/2020 R06.00 Dyspnea, unspecified Elizabeth Leon ea N.PShay 08/17/2020 R05 Cough Esme Leon N .P. Plan of Treatment Future Appointment(s):* 08/28/2020 12:00 pm - Nocturnal Oximetry at [facility] Pulmonary/Thoracic * 09/19/2020 2:15 pm - Esme Leon N.PShay at [facility] Pulmonary/Thoracic * 08/31/2020 1:00 pm - [facility] Pulmonary Lab at [facility] Pulmonary/[facility] 08/17/2020 - Esme Leon, N.P.* G47.33 Obstructive sleep apnea (adult) (pediatric) * R06.00 Dyspnea, unspecified * R05 Cough * * New Orders:* Nocturnal Oximetry, Scheduled: 08/23/20 * Comments:* 1. No changes were made to the BIPAP pressure at today's visit. 2. The patient is aware to call with any problems related to CPAP use, snoring through the mask or return of daytime sleepiness. 3. Per the patient's request, a BIPAP supply order has been sent to the [employer]. 1. Secondary to cough or shortness of breath, we will obtain full pulmonary function studies. * Follow up:* 1. Noc ox now. 2. PFT now. Needs to be scheduled at [facility] as patient will need nitrogen washout. 3. Return to see me/doctor in follow up with pulmonary function testing and noc ox. Functional Status Description No Information Available Mental Status Description No Information Available Referrals Refer to Reason for Referral Status Appt Date Ricky, Simone, M.D. HERNIA Scheduled 08/23/2020 [facility] [address] [phone]
--- OUTSIDE RECORDS SUMMARY | 2020-08-24 18:08 | CCD ---
Author Author [facility] Organization [facility] Address Unknown Phone Unavailable Care Team Providers Care [place] Teacher Name Role Phone Gabriel De La Rosa [...] De La Rosa MD Unavailable Unavailable EstrellaGabriel MD Unavailable Unavailable EstrellaGabriel MD Unavailable Unavailable EstrellaGabriel MD Unavailable Unavailable EstrellaGabriel MD Unavailable Unavailable EstrellaGabriel MD Unavailable Unavailable EstrellaGabriel MD Unavailable Unavailable EstrellaGabriel MD Unavailable Unavailable Estrella S Lance WAGNER Unavailable Unavailable Estrella S Lance WAGNER Unavailable Unavailable Estrella S Lance WAGNER Unavailable Unavailable EstrellaGabriel MD Unavailable Unavailable EstrellaGabriel MD Unavailable Unavailable EstrellaGabriel MD Unavailable Unavailable EstrellaGabriel MD Unavailable Unavailable Estrella S Lance WAGNER Unavailable Unavailable Estrella S Lance WAGNER Unavailable Unavailable Estrella S Lance WAGNER Unavailable Unavailable EstrellaGabriel MD Unavailable Unavailable EstrellaGabriel MD Unavailable Unavailable [...] RD Unavailable ALESSIO SOTELO CDN, RD Unavailable BRYON, MEÑO LAVERN CLOTH WORKER-C Unavailable Unavailable BRYON, MEÑO LAVERN CLOTH WORKER-C Unavailable Unavailable BRYON, MEÑO LAVERN CLOTH WORKER-C Unavailable Unavailable BRYON, MEÑO LAVERN CLOTH WORKER-C Unavailable Unavailable BRYON, MEÑO LAVERN CLOTH WORKER-C Unavailable Unavailable BRYON, MEÑO LAVERN CLOTH WORKER-C Unavailable Unavailable BRYON, MEÑO LAVERN CLOTH WORKER-C Unavailable Unavailable BRYON, MEÑO LAVERN CLOTH WORKER-C Unavailable Unavailable BRYON, MEÑO LAVERN CLOTH WORKER-C Unavailable Unavailable BRYON, MEÑO LAVERN CLOTH WORKER-C Unavailable Unavailable BRYON, MEÑO LAVERN CLOTH WORKER-C Unavailable Unavailable BRYON, MEÑO LAVERN CLOTH WORKER-C Unavailable Unavailable BRYON, MEÑO LAVERN CLOTH WORKER-C Unavailable Unavailable BRYON, MEÑO LAVERN CLOTH WORKER-C Unavailable Unavailable BRYON, MEÑO LAVERN CLOTH WORKER-C Unavailable Unavailable VANVALKENBURG, Miroslava MORAN MD Unavailable Unavailable VANVALKENBURG, Miroslava MORAN MD Unavailable Unavailable VANVALKENBURG, Miroslava MORAN MD Unavailable Unavailable VANVALKENBURG, Miroslava MORAN MD Unavailable Unavailable VANVALKENBURG, Miroslava MORAN MD Unavailable Unavailable VANVALKENBURG, Miroslava MORAN MD Unavailable Unavailable VANVALKENBURG, Miroslava MORAN MD Unavailable Unavailable VANVALKENBURG, Miroslava MORAN MD Unavailable Unavailable VANVALKENBURG, Miroslava MORAN MD Unavailable Unavailable VANVALKENBURG, Miroslava MORAN MD Unavailable Unavailable VANVALKENBURG, Miroslava MORAN MD Unavailable Unavailable VANVALKENBURG, Miroslava MORAN MD Unavailable Unavailable VANVALKENBURG, Miroslava MORAN MD Unavailable Unavailable VANVALKENBURG, Miroslava MORAN MD Unavailable Unavailable VANVALKENBURG, Miroslava MORAN MD Unavailable Unavailable VANVALKENBURG, Miroslava MORAN MD Unavailable Unavailable VANVALKENBURG, Miroslava MORAN MD Unavailable Unavailable VANVALKENBURG, Miroslava MORAN MD Unavailable Unavailable VANVALKENBURG, Miroslava MORAN MD Unavailable Unavailable VANVALKENBURG, Miroslava MORAN MD Unavailable Unavailable VANVALKENBURG, Miroslava MORAN MD Unavailable Unavailable VANVALKENBURG, Miroslava MORAN MD Unavailable Unavailable VANVALKENBURG, Miroslava MORAN MD Unavailable Unavailable VANVALKENBURG, Miroslava MORAN MD Unavailable Unavailable VANVALKENBURG, Miroslava MORAN MD Unavailable Unavailable VANVALKENBURG, Miroslava MORAN MD Unavailable Unavailable VANVALKENBURG, Miroslava MORAN MD Unavailable Unavailable VANVALKENBURG, Miroslava MORAN MD Unavailable Unavailable VANVALKENBURG, Miroslava MORAN MD Unavailable Unavailable VANVALKENBURG, Miroslava MORAN MD Unavailable Unavailable VANVALKENBURG, Miroslava MORAN MD Unavailable Unavailable VANVALKENBURG, Miroslava MORAN MD Unavailable Unavailable VANVALKENBURG, Miroslava MORAN MD Unavailable Unavailable VANVALKENBURG, Miroslava MORAN MD Unavailable Unavailable VANVALKENBURG, Miroslava MORAN MD Unavailable Unavailable VANVALKENBURG, Miroslava MORAN MD Unavailable Unavailable VANVALKENBURG, Miroslava MORAN MD Unavailable Unavailable VANVALKENBURG, Miroslava MORAN MD Unavailable Unavailable VANVALKENBURG, Miroslava MORAN MD Unavailable Unavailable VANVALKENBURG, Miroslava MORAN MD Unavailable Unavailable VANVALKENBURG, Miroslava MORAN MD Unavailable Unavailable VANVALKENBURG, Miroslava MORAN MD Unavailable Unavailable VANVALKENBURG, Miorslava MORAN MD Unavailable Unavailable VANVALKENBURG, Miroslava MORAN MD Unavailable Unavailable VANVALKENBURG, Miroslava MORAN MD Unavailable Unavailable VANVALKENBURG, Miroslava MORAN MD Unavailable Unavailable VANVALKENBURG, Miroslava MORAN MD Unavailable Unavailable VANVALKENBURG, Miroslava MORAN MD Unavailable Unavailable VANVALKENBURG, Miroslava MORAN MD Unavailable Unavailable VANVALKENBURG, Miroslava MORAN MD Unavailable Unavailable VANVALKENBURG, Miroslava MORAN MD Unavailable Unavailable VANVALKENBURG, Miroslava MORAN MD Unavailable Unavailable VANVALKENBURG, Miroslava MORAN MD Unavailable Unavailable VANVALKENBURGMiroslava MD Unavailable Unavailable VANVALKENBURGMiroslava MD Unavailable Unavailable VANVALKENBURGMiroslava MD Unavailable Unavailable VANVALKENBURGMiroslava MD Unavailable Unavailable VANVALKENBURGMiroslava MD Unavailable Unavailable VANVALKENBURGMiroslava MD Unavailable Unavailable VANVALKENBURGMiroslava MD Unavailable Unavailable VANVALKENBURGMiroslava MD Unavailable Unavailable VANVALKENBURGMiroslvaa MD Unavailable Unavailable VANVALKENBURGMiroslava MD Unavailable Unavailable DEMARTINI, M ADITYA PA [...] Unavailable DEMARTINI, M ADITYA PA Unavailable Unavailable OBEN, T SALVADOR MD Unavailable Unavailable OBEN, T SAVLADOR MD Unavailable Unavailable OBEN, T SALVADOR MD [...] Unavailable OBEN, T SALVADOR MD Unavailable Unavailable OBLionel ZIEGLER MD Unavailable Unavailable OBLionel ZIEGLER SALVADOR Unavailable Unavailable OBLionel ZIEGLERIX Unavailable Unavailable OBTONEY T SALVADOR Unavailable Unavailable OBTONEY T SALVADOR Unavailable Unavailable OBTONEY T SALVADOR Unavailable Unavailable OBTONEY T SALVADOR Unavailable Unavailable OBTONEY T SALVADOR Unavailable Unavailable OBTONEY T SALVADOR Unavailable Unavailable OBTONEY T SALVADOR Unavailable Unavailable OBTONEY T SALVADOR Unavailable Unavailable OBTONEY T SALVADOR Unavailable Unavailable OBTONEY T SALVADOR Unavailable Unavailable OBTONEY T SALVADOR Unavailable Unavailable OBTONEY T SALVADOR Unavailable Unavailable OBTONEY T SALVADOR Unavailable Unavailable OBLionel ZIEGLER SALVADOR Unavailable Unavailable OBLionel ZIEGLER SALVADOR Unavailable Unavailable Lionel KAMARA SALVADOR Unavailable Unavailable OBLionel ZIEGLER SALVADOR Unavailable Unavailable Lionel KAMARA MD Unavailable Unavailable OBLionel ZIEGLER SALVADOR Unavailable Unavailable Lionel KAMARA SALVADOR MD Unavailable Unavailable Lionel KAMARA SALVADOR MD Unavailable Unavailable Lionel KAMARA MD Unavailable Unavailable HITESH MELGAR MD Unavailable Unavailable HITESH MELGAR MD Unavailable Unavailable HITESH MELGAR MD Unavailable Unavailable HITESH MELGAR MD Unavailable Unavailable HITESH MELGAR MD Unavailable Unavailable HITESH MELGAR MD Unavailable Unavailable HITESH MELGAR MD Unavailable Unavailable HITSEH MELGAR MD Unavailable Unavailable HITESH MELGAR MD [...] Unavailable Unavailable Angelica Anderson MD Unavailable Unavailable Angeilca Anderson MD Unavailable Unavailable Angelica Anderson MD [...] Unavailable Unavailable Angelica Anderson MD Unavailable Unavailable BOONE, A SANTOS MD [...] Unavailable BOONE, A SANTOS MD Unavailable Unavailable BOONEJonathon MD Unavailable Unavailable BOONE, Jonathon GRAHAM MD [...] Unavailable Kunnumpurath, F Shannan MD Unavailable Unavailable Kentrell Negrete MD Unavailable Unavailable Lance Arenas DO Unavailable [...] A KELLEN DPM Unavailable Unavailable Gabriel DAVIS [id number] Unavailable Unavailable OBEN, T SALVADOR MD Unavailable [...] CLEO Unavailable Unavailable TURRIN, CLEO Unavailable Unavailable HESTERLETITIA COPELAND MD Unavailable Unavailable HESTERLETITIA COPELAND MD Unavailable Unavailable HESTERLETITIA COPELAND MD Unavailable Unavailable HESTERLETITIA COPELAND MD Unavailable Unavailable HESTERLETITIA COPELAND MD Unavailable Unavailable HESTERLETITIA COPELAND MD Unavailable Unavailable HESTERLETITIA COPELAND MD Unavailable Unavailable HESTERLEITTIA COPELAND MD Unavailable Unavailable HESTERLETITIA COPELAND MD Unavailable Unavailable HESTERLETITIA COPELAND MD Unavailable Unavailable HESTERLETITIA COPELAND MD Unavailable Unavailable HESTERLETITIA COPELAND MD Unavailable Unavailable HESTERLETITIA COPELAND MD Unavailable Unavailable HESTERLETITIA COPELAND MD Unavailable Unavailable HESTERLETITIA COPELAND MD Unavailable Unavailable HESTERLETITIA COPELAND MD Unavailable Unavailable HESTERLETITIA COPELAND MD Unavailable Unavailable HESTERLETITIA COPELAND MD Unavailable Unavailable HESTERLETITIA COPELAND MD Unavailable Unavailable HESTERLETITIA COPELAND MD Unavailable Unavailable HESTERLETITIA COPLEAND MD Unavailable Unavailable HESTERLETITIA MD Unavailable Unavailable HESTERLETITIA COPELAND MD Unavailable Unavailable HESTERLETITIA COPELAND MD Unavailable Unavailable HESTERLETITIA COPELAND MD Unavailable Unavailable HESTERLETITIA COPELAND MD Unavailable Unavailable HESTERLETITIA COPELAND MD Unavailable Unavailable HESTERLETITIA COPELAND MD Unavailable Unavailable HESTERLETITIA COPELAND MD Unavailable Unavailable HESTERLETITIA COPELAND MD Unavailable Unavailable HESTERLETITIA MD Unavailable Unavailable HESTERLETITIA COPELAND MD Unavailable Unavailable HESTERLETITIA COPELAND MD Unavailable Unavailable HESTERLETITIA COPELAND MD Unavailable Unavailable HESTERLETITIA COPELAND MD Unavailable Unavailable HESTERLETITIA MD Unavailable Unavailable HESTERLETITIA MD Unavailable Unavailable HESTER, LETITIA MD Unavailable Unavailable LETITIA HESTER MD Unavailable Unavailable LETITIA HESTER MD Unavailable Unavailable LETITIA HESTER MD Unavailable Unavailable LETITIA HESTER MD Unavailable Unavailable LETITIA HESTER MD Unavailable Unavailable LETITIA HESTER MD Unavailable Unavailable LETITIA HESTER MD Unavailable Unavailable LETITIA HESTER MD Unavailable Unavailable LETITIA HSETER MD Unavailable Unavailable LETITIA HESTER MD Unavailable [...] Unavailable Unavailable LETITIA HESTER MD Unavailable Unavailable TITOXANA, MADISON Unavailable Unavailable Nieves TAMAYO MD Unavailable Unavailable [...] Unavailable Unavailable Nieves TAMAYO MD Unavailable Unavailable MINILos MAYES MD Unavailable [...] Unavailable Los MORSE MD Unavailable Unavailable Nieves CASSIDY MD Unavailable Unavailable Nieves CASSIDY MD Unavailable Unavailable Nieves CASSIDY MD Unavailable Unavailable Nieves CASSIDY MD Unavailable Unavailable Nieves CASSIDY MD Unavailable Unavailable Nieves CASSIDY MD Unavailable Unavailable Nieves CASSIDY MD Unavailable Unavailable Nieves CASSIDY MD Unavailable Unavailable Nieves CASSIDY MD Unavailable Unavailable NO, PCP Unavailable Unavailable BartoszeTheerse phelps MS, RPA-C Unavailable Unav ailable Bartoszewskarie, Therese Morales MS, RPA-C Unavailable Unav ailable Bartoszewskarie, Therese Morales MS, RPA-C Unavailable Unav ailable BartoszewsTherese tiwari Carmen MS, RPA-C Unavailable Unav ailable Bartoszewski, [...] is protected by Article 27-F of the [facility] Public Health law. If you continue you may have access to information: Regarding HIV / AIDS; Provided by facilities licensed or operated by the [facility] Office of Mental Health; or Provided by the [facility] Office for People With Developmental Disabilities. If such information is present, then the following [facility] mandated warning applies: This information [...] may result in a fine or senior living sentence or both. A general authorization for the release of medical or other information is NOT sufficient authorization for further disc losure. Allergies and Adverse Reactions Type Description Substance Reaction Status Data Source(s ) No Known Food Allergies No Known Food Allergies [facility] BRANDNAME DILANTIN DILANTIN [facility] Drug allergy CODEINE CODEINE [facility] Drug allergy NAPROXEN NAPROXEN [facility] Family History Family Member Name Family Member Gender Family Member Status Date o f Status Description Data Source(s) Unknown Condition [facility] Unknown Condition [facility] Unknown Condition [facility] Unknown Condition [facility] Unknown Condition [facility] Unknown Condition [facility] Unknown Condition [facility] Unknown Condition [facility] Unknown Condition [facility] Encounters Encounter Providers Location Date Indications Data Source(s ) Outpatient Attender: SANTOS SHOOK MD 11/28/2020 12:00:0 0 AM [facility] Outpatient Attender: LAVERN Lu/Yonathan/Nancy segovia 08/17/2020 12:15:00 PM EST [facility]ENT ([facility] [place] [address] [address] 08/15/2020 12:00:00 AM EST [facility] [place] [address] [address] 08/10/2020 12:00:00 AM EST eCW1 ([facility]) Outpatient Attender: MADISON PEPE 07/17/2020 12:00:00 A M [facility] Outpatient Attender: KOTA SIERRA MD [id number] 06/28/2020 12:00:00 AM EST Primary osteoarthritis, right ankle and foot [facility] Primary osteoarthritis, right ankle and foot Outpatient Attender: MADISON PEPE 06/26/2020 12:00:00 A M [facility] Outpatient [address] [address] 06/12/2020 12:00:00 AM EST eCW1 ([facility]) Outpatient Attender: SANTOS SHOOK MD [id number] 04/2020 12:00:00 AM [facility] - 06/06/2020 02:43:30 PM EST Post-traumatic bulbous urethral stricture [facility] Post-traumatic bulbous urethral strictur e Outpatient Attender: MADISON PEPE 06/05/2020 12:00:00 A M [facility] Outpatient Attender: Shannan Negrete MDConsultant: LETITIA HESTER MD 06/01/2020 01:00:00 PM [facility] - 06/01/2020 01:00:00 PM [facility] Outpatient Attender: MADISON PEPE 05/24/2020 12:00:00 A M [facility] [place] [address] [address] 05/22/2020 12:00:00 AM EDT [facility] [place] [address] [address] 05/22/2020 12:00:00 AM EDT eCW1 ([facility]) [place] [address] [address] 05/18/2020 12:00:00 AM EDT eCW1 ([facility]) [place] [address] [address] 05/15/2020 12:00:00 AM EDT eCW1 ([facility]) Outpatient Attender: SANTOS SHOOK MD [id number] 12:00:00 AM EDT - 05/09/2020 02:16:06 PM [facility] Outpatient Referrer: ADITYA TANG 04/26/2020 12:00:00 AM EDT Primary osteoarthritis, right ankle and [facility] Primary osteoarthritis, right ankle and foot Outpatient Referrer: ADITYA TANG 04/26/2020 12:00:00 AM EDT Primary osteoarthritis, right ankle and [facility] Primary osteoarthritis, right ankle and foot Outpatient Attender: ADITYA TANG [id number] 04/26/2020 12:00:00 AM EDT Primary osteoarthritis, right ankle [facility] Primary osteoarthritis, right ankle and foot Outpatient Attender: Shannan Clarkumpurakei MDConsultant: LETITIA HESTER MD 04/20/2020 02:36:00 PM EDT - 04/20/2020 02:36:00 PM T [facility] Outpatient Attender: LETITIA HESTER MDConsultant: LETITIA Madison MD 04/05/2020 10:11:00 AM EDT - 04/05/2020 10:11:00 AM [facility] Outpatient Attender: SERAFIN GEORGES MDConsultant: LETITIA Madison MD 03/29/2020 01:51:00 PM EDT - 03/29/2020 01:51:00 PM [facility] Outpatient Attender: LETITIA HESTER MDConsultant: LETITIA Madison MD 03/27/2020 12:49:00 PM EDT - 03/27/2020 12:49:00 PM EDT [facility] Outpatient Attender: KOTA SIERRA MD 03/24/2020 12: 00:00 AM EDT [facility] Emergency Attender: CLEO GRUBERConsultant: LETITIA Madison MD 03/22/2020 03:26:00 PM EDT - 03/22/2020 05:25:00 PM EDT [facility] Patient discharged. Outpatient Attender: ALTAGRACIA DAVIS [id number]: LETITIA HANSEN MD [facility]: [facility] SI[facility] MD 03/15/2020 12: 00:00 AM [facility] Emergency Attender: HITESH MELGAR MDConsultant: LETITIA HESTER MD 03/09/2020 05:46:00 PM EDT - 03/10/2020 12:45:00 AM EDT [facility] Patient discharged. Outpatient Attender: LETITIA HESTER MD Family Practice 02/23/2020 1 1:00:00 AM EDT MED[facility] ([facility]) Outpatient Attender: LETITIA HESTER MDConsultant: LETITIA Madison MD 02/23/2020 10:36:00 AM EDT - 02/23/2020 10:36:00 AM EDT [facility] Outpatient Attender: ROBERT TAMAYO MDReferrer: ROBERT TAMAYO MD MOB-MOB.PAT 02/04/2020 10:47:57 AM EDT - 02/04/2020 11:35:59 AM EDT [facility] Outpatient Attender: ROBERT TAMAYO MDReferrer: ROBERT TAMAYO MD MOB-MOB.PAT 02/04/2020 10:12:45 AM EDT - 02/04/2020 10:12:49 AM EDT [facility] SDC Attender: ROBERT TAMAYO MDAdmitter: ROBERT TAMAYO MD ES1-OR 02/02/2020 10:39:51 AM EDT - 02/09/2020 05:00:00 PM EDT [facility] Patient discharged. Outpatient Referrer: ROBERT TAMAYO MD 01/31/2020 01:06:48 P M EDT [facility] Emergency Attender: MILAGROS MORSE MDConsultant: LETITIA Madison MD 01/27/2020 11:08:00 AM EDT - 01/27/2020 01:46:00 PM EDT [facility] Patient discharged. Outpatient Attender: Lance De La Rosa MD Main Office 01/18/2020 02:15:00 [facility] Outpatient Attender: LETITIA HESTER MDConsultant: LETITIA Madison MD 01/17/2020 09:33:00 AM EDT - 01/17/2020 10:33:00 AM EDT [facility] Emergency Attender: MILAGROS MORSE MDConsultant: LETITIA Madison MD 01/13/2020 01:42:00 PM EDT - 01/13/2020 05:54:00 PM EDT [facility] Patient discharged. Outpatient Attender: LETITIA HESTER MD [facility] 01/12/2020 0 1:20:00 PM EDT [facility] ([facility]) Outpatient Attender: LETITIA HESTER MDConsultant: LETITIA Madison MD 01/12/2020 12:32:00 PM EDT - 01/12/2020 12:32:00 PM EDT [facility] Outpatient Attender: SALVADOR KAMARA MDConsultant: LETITIA HESTER MD 12/31/2019 08:45:00 AM EDT - 12/31/2019 11:35:00 AM EDT [facility] Patient discharged. Outpatient Attender: Carmen Biswas MS, RPA-CConsultan t: LETITIA HESTER MD 12/28/2019 09:05:00 AM EDT - 12/28/2019 09:15:00 AM EDT [facility] Patient discharged. Outpatient Attender: SALVADOR KAMARA MDConsultant: LETITIA HESTER MD 12/15/2019 11:32:18 AM EDT [facility] Outpatient Attender: ALESSIO RG, RDConsultant: LETITIA HESTER MD 12/14/2019 12:59:00 PM EDT - 12/14/2019 12:59:00 PM EDT [facility] Outpatient Attender: SALVADOR Tompkinsultant: LETITIA HESTER MD 12/13/2019 02:57:37 PM EDT - 12/14/2019 12:20:00 PM EDT [facility] Patient discharged. Outpatient Attender: LETITIA HESTER MDConsultant: LETITIA Madison MD 11/29/2019 10:16:00 AM EDT - 12/16/2019 08:54:00 AM EDT [facility] Patient discharged. Outpatient Attender: LETITIA HESTER MDConsultant: LETITIA Madison MD 11/25/2019 12:56:00 PM EDT - 11/25/2019 12:56:00 PM EDT [facility] Outpatient Attender: SALVADOR KAMARA MDConsultant: LETITIA HESTER MD 11/23/2019 11:13:00 AM EDT - 11/23/2019 11:13:00 AM EDT [facility] Outpatient Attender: SALVADOR KAMARA MD Family Practice 11/23/2019 08:15:0 0 AM EDT [facility] ([facility]) Outpatient Attender: LETITIA HESTER MDConsultant: LETITIA Madison MD 11/19/2019 10:35:00 AM EDT - 11/19/2019 11:36:00 AM EDT [facility] Outpatient Attender: LETITIA HESTRE MD Family Practice 11/18/2019 0 3:00:00 PM EDT [facility] ([facility]) Outpatient Attender: LETITIA HESTER MDConsultant: PCP NO 11/18/2019 02:08:00 PM EDT - 11/18/2019 02:08:00 PM EDT [facility] Emergency Attender: YI CASSIDY MDConsultant: PCP NO 10/21/2019 03:31:00 PM EDT - 10/21/2019 05:41:00 PM EDT [facility] Patient discharged. Outpatient Attender: KOTA SIERRA MD 10/15/2019 12: 00:00 AM [facility] OutpatientEST-LEVEL 4 Attender: [facility] 10/06/2019 02:30:00 PM EDT - 10/06/2019 02:30:00 PM EDT Nail dystrophyUnspecified osteoarthritis, unspecified site [facility] Nail dystrophy Unspecified osteoarthritis, unspecified site Outpatient Attender: Kota Cardonaerrer: Kota Anderson MD 09/14/2019 03:48:00 PM EST - 09/14/2019 04:28:00 PM EST [facility] Outpatient Attender: Lance Boo: Kota collins MD 08/12/2019 01:49:00 PM EST [facility] l Immunizations Vaccine Date Status Description Data Source(s) This CVX code allows reporting of a vacc ination when formulation is unknown (for example, when recording a Influenza vaccination when noted on a vaccination card) 07/19/2019 12:00:00 AM EST completed influenza, injectable , [facility] This CVX code allows reporting of a vacc ination when formulation is unknown (for example, when recording a Influenza vaccination when noted on a vaccination card) 07/19/2019 12:00:00 AM EST completed influenza, injectable , [facility] Medications Medication Brand Name Start Date Product Form Dose Route Admi nistrative Instructions Pharmacy Instructions Status Indications Reaction Description Data Source(s) [facility] Devices (DURABLE MEDICAL EQUIPMENT SEE SIG) XX [facility] 97 [id number] 06/28/2020 12:00:00 AM EST active Use as directed. Roll A Bout Knee Scooter Dx: [facility] Clindamycin 0.01 MG/MG Topical Gel Clindamycin Phospha te 1 % Clindamycin Phosphate 1 % 06/12/2020 12:00:00 AM EST 1.0 {application} active Clindamycin Phosphate 1 % eCW1 ([facility]) lidocaine (XYLOCAINE) 2 % urojet 20 mL [address]-1 0 01:30:00 PM EST 20 mL Urethral completed 20 mL, Urethr al, Once, 06/06/20 at 1330, For 1 dose [facility] Medication administered onsite Cephalexin 500 MG Oral Capsule cephALEXin (KEFLEX) cap gt 500 mg cephALEXin (KEFLEX) capsule 500 mg 06/06/2020 01:30:00 PM EST 500 mg Oral completed 500 mg, Oral, Once, 06/06/20 at 1330 , For 1 [facility] Medication administered onsite alclometasone dipropionate 0.5 MG/ML Top ical Cream Alclometasone Dipropionate 0.05 % Alclometasone Dipropionate 0.05 % 05/15/2020 12:00:00 AM EDT 1.0 {application} active Alclometasone Dipr opionate 0.05 % eCW1 ([facility]) ciclopirox 10 MG/ML Medicated Shampoo Ciclopirox 1 % Ciclopi oneil 1 % 05/15/2020 12:00:00 AM EDT 1.0 {application} active Ciclopirox 1 % eCW1 ([facility]) ciclopirox 10 MG/ML Medicated Shampoo Ciclopirox 1 % Ciclopi oneil 1 % 05/15/2020 12:00:00 AM EDT 1.0 {application} active Ciclopirox 1 % eCW1 ([facility]) Doxycycline Monohydrate 50 MG Oral Capsule Doxycycline Monoh ydrate 50 MG 05/15/2020 12:00:00 AM EDT 1.0 {capsule} active Doxycycline Monohydrate 50 MG eCW1 ([facility]) alclometasone dipropionate 0.5 MG/ML Top ical Cream Alclometasone Dipropionate 0.05 % Alclometasone Dipropionate 0.05 % 05/15/2020 12:00:00 AM EDT 1.0 {application} active Alclometasone Dipr opionate 0.05 % eCW1 ([facility]) Doxycycline Monohydrate 50 MG Oral Capsule Doxycycline Monoh ydrate 50 MG 05/15/2020 12:00:00 AM EDT 1.0 {capsule} active Doxycycline Monohydrate 50 MG eCW1 ([facility]) alclometasone dipropionate 0.5 MG/ML Top ical Cream Alclometasone Dipropionate 0.05 % Alclometasone Dipropionate 0.05 % 05/15/2020 12:00:00 AM EDT 1.0 {application} active Alclometasone Dipr opionate 0.05 % eCW1 ([facility]) ciclopirox 10 MG/ML Medicated Shampoo Ciclopirox 1 % Ciclopi oneil 1 % 05/15/2020 12:00:00 AM EDT 1.0 {application} active Ciclopirox 1 % eCW1 ([facility]) alclometasone dipropionate 0.5 MG/ML Top ical Cream Alclometasone Dipropionate 0.05 % Alclometasone Dipropionate 0.05 % 05/15/2020 12:00:00 AM EDT 1.0 {application} active Alclometasone Dipr opionate 0.05 % eCW1 ([facility]) ciclopirox 10 MG/ML Medicated Shampoo Ciclopirox 1 % Ciclopi oneil 1 % 05/15/2020 12:00:00 AM EDT 1.0 {application} active Ciclopirox 1 % eCW1 ([facility]) Doxycycline Monohydrate 50 MG Oral Capsule Doxycycline Monoh ydrate 50 MG 05/15/2020 12:00:00 AM EDT 1.0 {capsule} active Doxycycline Monohydrate 50 MG eCW1 ([facility]) Doxycycline Monohydrate 50 MG Oral Capsule Doxycycline Monoh ydrate 50 MG 05/15/2020 12:00:00 AM EDT 1.0 {capsule} active Doxycycline Monohydrate 50 MG eCW1 ([facility]) Docusate Sodium 100 MG Oral Capsule [DOK] DOK 100 MG O ral Capsule DOK 100 MG Oral Capsule 04/07/2020 12:00:00 AM EDT 100 mg Oral activ e Take 100 mg by mouth daily [facility] Desvenlafaxine Succinate ER 100 MG Oral Tablet Extended Release 24 Hour (PRISTIQ) 7119-0005-44 04/07/2020 12:00:00 AM EDT Oral active Take by mouth daily [facility] Nystatin 100 UNT/MG Topical Powder Nysta tin [id number] UNIT/GM External Powder (MYCOSTATIN) Nystatin [id number] UNIT/GM External Powder (MYCOSTATIN) 0 03/27/2020 12:00:00 AM EDT active APPLY TO AFFECTED AREA S TWO TIMES A DAY ABDOMINAL FOLDS [facility] heparin (porcine) injection 5,000 Units 39340-194-10 02/09/20 05:00:00 PM EDT 5000 U Subcutaneous active 5,000 Units , Subcutaneous, Every 8 hours (scheduled), First dose on Fri02/09/20 at 1700, Post-op
If platelet count is less than 100,000 or hematocrit is less than 25, or if there is a 5 point decrea se in hematocrit, do not give the dose and call physician/designee.
[facility] Medication administered onsite dextrose 5 % and sodium chloride 0.9 % infusion [id number] 02/09/2020 05:00:00 PM EDT Intravenous active at 1 00 mL/hr, Intravenous, Continuous, Starting Fri02/09/20 at 1700, Post-op
Hep lock with good PO
[facility] Medication administered onsite Oxycodone Hydrochloride 5 MG Oral Tablet oxyCODONE (ROXICODONE) immediate release tablet 5 mg oxyCODONE (ROXICODONE) immediate release tablet 5 mg 02/09/2020 04:27:42 PM EDT 5 mg Oral active 5 mg, Oral, Every 4 hours PRN, moderate pain (4-6), Starting Fri02/09/20 at 1627, For 7 days, Post-op [facility] Medication administered onsite ondansetron (ZOFRAN) injection 4 mg [id number] 02/09/2020 04:27:4 2 PM EDT 4 mg Intravenous active 4 mg, In travenous, Every 6 hours PRN, nausea, vomiting, Starting Fri02/09/20 at 1627, Post-op [facility] Medication administered onsite Magnesium Chloride 0.20003 MEQ/ML / Pota ssium Chloride 0.0497 MEQ/ML / Sodium Acetate 0.0163 MEQ/ML / Sodium Chloride 0.0899 MEQ/ML / Sodium gluconate 5.02 MG/ML Injectable Solution [Normosol-R] electrolyte-R (NORMOSOL-R/PLASMALYTE-R) solution electrolyte-R (NORMOSOL-R/PLASMALYTE-R) solution 02/08 04:00:00 PM EDT Intravenous active at 1 00 mL/hr, Intravenous, Continuous, Starting Fri02/09/20 at 1600, PACU & Post-op [facility] Medication administered onsite normal saline flush 0.9 % injection 3 mL [id number] 02/09/2020 04:00:00 PM EDT 3 mL Intravenous active 3 mL , Intravenous, Every 8 hours (scheduled), First dose on Fri02/09/20 at 1600, PACU (only)
flush per protocol, D/C Main IV fluid if appropriate
[facility] Medication administered onsite 10 ML Atropine [...] or 0.04 mg/kg. Max of 6 doses
[facility] Medication administered onsite fentaNYL Citrate (PF) (SUBLIMAZE) injection 25 mcg [id number] 02/09/2020 02:45:03 PM EDT 25 ug Intravenous completed 25 mcg, Intravenous, Every 5 min PRN, moderate pain (4-6), Starting Fri02/09/20 at 1445, For 4 doses, PACU (only) [facility] Medication administered onsite normal saline flush 0.9 % injection 3 mL [id number] 02/09/2020 02:00:00 PM EDT 3 mL Intravenous active 3 mL , Intravenous, Every 8 hours (scheduled), First dose on Fri02/09/20 at 1400, Pre-op
Rapid push positive pressure flushing shall be performed with a 10 cc normal saline syringe to check the PATENCY of a PIV site prior to any infusion therapy initiation unless resistance is met.
[facility] Medication administered onsite Oxycodone Hydrochloride 5 MG Oral Tablet oxyCODONE (ROXICODONE) 5 MG immediate release tablet oxyCODONE (ROXICODONE) 5 MG immediate release tablet 0 02/09/2020 12:00:00 AM EDT 5 mg Oral active Take 1 tablet (5 mg total) by mouth every 6 (six) hours as needed for pain Max Daily Amount: 20 mg [facility] Levetiracetam 500 MG Oral Tablet [Keppra] Keppra 01/20/2020 12:00 :00 AM EDT ORAL active [facility] ([facility]) montelukast 10 MG Oral Tablet Montelukast Sodium 11/22/2019 12:00:00 AM EDT ORAL active [facility] ([facility]) Docusate Sodium 100 MG Oral Capsule [Colace] Colace 12:00:00 AM EDT ORAL active [facility] ( [facility]) 750 mg 09/14/2019 12:00:00 AM EST [...] 08/30/2019 09:12:29 AM EST 750 MG active [facility] 750 mg 08/30/2019 12:00:00 AM EST tablet [...] 09:11:55 AM EST 50 MG active L [facility] cetirizine hydrochloride 10 MG Oral Capsule Cetirizine Cetir izine 08/19/2019 09:11:50 AM EST 10 MG active L [facility] 10 mg 08/19/2019 12:00:00 AM EST [...] 020 02:39:04 PM EST 200 MG active [facility] 750 mg 07/18/2019 12:00:00 AM EST tablet [...] CAPSULE BY MOUTH AT BEDTIME SOLD: 2019 [facility] Methocarbamol 750 MG Oral Tablet Methocarbamol 06/03/2019 08:54:31 AM EST 750 MG [facility] Mirtazapine 15 MG Oral Tablet Mirtazapine 06/01/2019 02:30:05 PM EST 15 MG [facility] 15 mg 06/01/2019 12:00:00 AM EST tablet 30 TAKE ONE TABLET BY MOUTH EVERY DAY TAKE ONE TABLET BY MOUTH EVERY DAY SOLD: 07/26/2019 [facility] 15 mg 06/01/2019 12:00:00 AM EST tablet 30 TAKE ONE TABLET BY MOUTH EVERY DAY TAKE ONE TABLET BY MOUTH EVERY DAY SOLD: 06/30/2019 [facility] Methylprednisolone Methylprednisolone 05/31/2019 06:14:06 PM EST 0 [facility] cetirizine hydrochloride 10 MG Oral Capsule Cetirizine Cetir izine 05/17/2019 09:13:30 AM EDT 10 MG [facility] Doxycycline Monohydrate 50 MG Oral Capsule Doxycycline Monoh ydrate 05/17/2019 09:13:09 AM EDT 50 MG [facility] 600 mg 05/17/2019 12:00:00 AM EDT [...] ALLERGY SYMPTOMS SOLD: 07/18/2019 [facility] 50 mg 05/17/2019 12:00:00 [...] TWICE A DAY SOLD: 07/26/2019 [facility] montelukast 10 MG Oral Tablet [...] EVERY DAY SOLD: 07/18/2019 [facility] 62.5 mcg/actuation 03/19/2019 12:00:00 AM EDT blister [...] 019 12:59:00 PM EDT 200 MG completed [facility]. Devices (DURABLE MEDICAL EQUIPMENT SEE SIG) [facility] [id number] 10/09/2018 12:00:00 AM EDT aborted Use as directed. Rolling walker with seat Dx: Right ankle arthritis [facility] gabapentin 100 MG Oral Capsule gabapentin (NEURONTIN) 100 MG capsule gabapentin (NEURONTIN) 100 MG capsule 03/03/2018 12:00:00 AM EDT 100 mg Oral aborted Take 100 mg by mouth Daily [facility] maalox/lidocaine/diphenhydrAMINE (RADIATION MIXTURE) 1:1:1 o ral suspension 05/29/2017 12:00:00 AM EDT 10 mL Swish & Spit aborted Swish and spit 10 mLs every 2 (two) hours as needed (For Mouth Pain)Pharmacy compound: Maalox, lidocaine viscous 2 %, Benadryl 12.5 mg/5 mL [facility] PARoxetine (PAXIL) 30 MG tablet [id number] 30 mg Oral aborted Take 30 mg by mouth every morning [facility] Melatonin 3 MG Oral Tablet melatonin 3 MG tablet melatonin 3 MG table t 5 mg Oral aborted Take 5 mg by m outh nightly Indications: Pt takes two tabs nightly [facility] doxycycline hyclate 50 MG Oral Capsule doxycycline ( BRAMYCIN) 50 MG capsule doxycycline (VIBRAMYCIN) 50 MG capsule 100 mg Oral aborted Take 100 mg by mouth every morning [facility] Insurance Providers Payer name Policy type / Coverage type Policy ID Covered alliance party ID Covered alliance party's relationship to de la rosa Policy [place] Plan Information [facility] [id number] SP [id number] [facility] P [id number] S [id number] UNHC COMMUNITY PLAN MCDHMO [id number] SP [id number] UNHC COMMUNITY PLAN MCDHMO [id number] SP [id number] UHC I [id number] Self [id number] UHC COMMUNTY PLAN [id number] UNHC COMMUNITY PLAN XIX [id number] 18 [id number] UNHC COMMUNITY PLAN MCDHMO [id number] SP [id number] UH MEDICAID [id number] [facility] MEDICAID [id number] Sepideh [id number] INSURANCE COVID-19 COVID Sepideh C OVID INSURANCE COVID-19 [id number] 2 [id number] BLUE CROSS BLUE SHIELD-O/P [id number] UNHC COMMUNITY PLAN XIX -RECURRING [id number] 18 [id number] [facility] Community Plan [id number] 99 [id number] STPP Wrap [id number] United[employer] Other 0 Self 0 UnitedHealth[employer] Other 0 Self 0 UnitedHealthcare Other 0 Self 0 [facility] MEDICAID PI PI MEDICAID [id number] Sepideh [id number] United[employer]care Other 0 Self 0 UnitedHealthcare Other 0 Self 0 United[employer] Other 0 Self 0 [place] Medig[place] [id number] Self [id number] Hmo Blue Option/Medicaid Health Maintenance Organization (HMO) [id number] Self [id number] [facility] Health Maintenance Organization (HMO) [id number] Self [id number] [place] Med[place] [id number] Self [id number] Hmo Blue Option/Medicaid Health Maintenance Organization (HMO) [id number] Self [id number] Medicaid Medicaid [id number] Self [id number] [facility]-Community Plan Commercial [id number] Self [id number] [place] Med[place] [id number] Family Dependent [id number] [facility] Community Plan Commercial [id number] Self [id number] United[employer]care Other 0 Self 0 UNHC COMMUNITY PLAN MCDHMO [id number] SP [id number] [place] Med[place] [id number] Self [id number] Hmo Blue Option/Medicaid Health Maintenance Organization (HMO) [id number] Self [id number] [employer] Paul/MCR Health Maintenance Organization (HMO) [id number] Self [id number] Community Plan - [facility] Commercial [id number] Self [id number] Community Plan - [facility] Commercial [id number] Self [id number] UnitedHealthcare Other 0 Self 0 Medicaid [id number] Community Plan - [facility] Commercial [id number] Self [id number] [facility] [id number] 99 [id number] Community Plan - [facility] Commercial Self [facility] Paul/MCR Medigap Part [place] Self Hmo Blue Option/Medicaid Health Maintenance Organization (HMO) Self [facility] [id number] UHC PLUS [facility] COMMUNITY PLAN [id number] SELF [id number] [employer] PAUL [id number] SELF [id number] [facility] [id number] Patient [id number] [facility] [id number] Patient [id number] SELF PAY UNAVAILABLE SELF UNAVAILA BLE Medicaid Medicaid Self Uhc-Community Plan Commercial Self MEDICAID M [id number] Self [id number] [facility](MCAID) P [id number] S [id number] [facility](MCAID) P [id number] S [id number] [facility] MEDICAID 7 [id number] 1 [id number] SELFPAY 5 UNAVAILABLE 1 UNAVAILA BLE MEDICAID 3 [id number] BLUE CHOICE OPTIONS 7 [id number] MEDICAID W [id number] S [id number] BLUE CHOICE OPTION O [id number] S [id number] BLUE CROSS [place] PLAN [id number] SP [id number] BLUE CROSS [place] PLAN [id number] SP [id number] MEDICAID [id number] SP [id number] O BLUE [id number] FA2 [id number] UNAVAILABLE UNAVAILA BLE Problems, Conditions, and Diagnoses Code Display Name Description Problem Type Effective Dates Data Source(s) 04495849 Essential hypertension Essential hypertension Problem 08/23/2020 12:00:00 AM [facility] ([facility], ) J45.20 [id number] Mild intermittent asthma without complica tion Problem 08/03/2020 12:00:00 AM EST eCW1 ([facility]) Z68.43 [id number] BMI 50.0-59.9, adult Problem 08/03/2020 12:0 0:00 AM EST eCW1 ([facility]) G47.33 [id number] Obstructive sleep apnea Problem 08/03/2020 1 2:00:00 AM EST eCW1 ([facility]) G40.909 [id number] Seizure disorder Problem 08/03/2020 12:00:00 AM EST eCW1 ([facility]) [id number] Abdominal pain Abdominal pain Problem 01/18/2020 12:00: 00 AM EDT MEDENT ([facility]) [id number] Essential hypertension Essential hypertension Problem 11/18/2019 12:00:00 AM EDT MEDENT ([facility]) S92.101S Unspecified fracture of right talus, seq uela Unspecified fracture of right talus, sequela Diagnosis 06/28/2020 07:03:06 AM [facility] M19.071 Primary osteoarthritis, right ankle and foot Primary osteoarthritis, right ankle and foot Diagnosis 06/28/2020 07:03:06 AM [facility] [id number] Encounter for other preprocedural examin ation Encounter for other preprocedural examination Diagnosis 04/20/2020 02:36:00 PM EDT [facility] H6123 Impacted cerumen, bilateral Impacted cerumen, bilatera l Diagnosis 04/05/2020 10:11:00 AM EDT [facility] R1033 Periumbilical pain Periumbilical pain Diagnosis 08/2019 01:51:00 PM EDT [facility] H6122 Impacted cerumen, left ear Impacted cerumen, left ear Diagnosis 03/27/2020 12:49:00 PM EDT [facility] Z6843 Body mass index (BMI) 50.0-59.9, adult B santos mass index (BMI) 50.0-59.9, adult Diagnosis 03/27/2020 12:49:00 PM EDT [facility] E669 Obesity, unspecified Obesity, unspecified Diagnosis 03/27/2020 12:49:00 PM EDT [facility] R569 Unspecified convulsions Unspecified convulsions Diagno sis 03/27/2020 12:49:00 PM EDT [facility] B372 Candidiasis of skin and nail Candidiasis of skin and n ail Diagnosis 03/27/2020 12:49:00 PM EDT [facility] R1030 Lower abdominal pain, unspecified Lower abdomina l pain, unspecified Diagnosis 03/27/2020 12:49:00 PM EDT [facility] K19515 Unspecified asthma, uncomplicated Unspecified as thma, uncomplicated Diagnosis 03/22/2020 03:26:00 PM EDT [facility] G8929 Other chronic pain Other chronic pain Diagnosis 03:26:00 PM EDT [facility] Q03168 Personal history of nicotine dependence Personal history of nicotine dependence Diagnosis 03/09/2020 05:46:00 PM EDT [facility] K2970 Gastritis, unspecified, without bleeding Gastritis, unspecified, without bleeding Diagnosis 03/09/2020 05:46:00 PM EDT [facility] R109 Unspecified abdominal pain Unspecified abdominal pain Diagnosis 03/09/2020 05:46:00 PM EDT [facility] R631 Polydipsia Polydipsia Diagnosis 02/23/2020 10:36:00 AM ED T [facility] R358 Other polyuria Other polyuria Diagnosis 02/23/2020 10:36: 00 AM EDT [facility] J449 Chronic obstructive pulmonary disease, u nspecified Chronic obstructive pulmonary disease, unspecified Diagnosis 02/23/2020 10:36:00 AM EDT [facility] K43.2 Incisional hernia without obstruction or gangrene Incisional hernia without obstruction or Diagnosis 02/09/2020 08:51:00 AM EDT [facility] K43.0 Incisional hernia with obstruction, with out gangrene Incisional hernia with obstruction, with Diagnosis 02/09/2020 08:51:00 AM EDT [facility] J98.8 Other specified respiratory disorders Ot her specified respiratory disorders Diagnosis 02/04/2020 10:12:45 AM EDT [facility] U07.1 COVID-19 COVID-19 Diagnosis 02/04/2020 10:12:45 AM ED T [facility] K429 Umbilical hernia without obstruction or gangrene Umbilical hernia without obstruction or gangrene Diagnosis 01/27/2020 11:08:00 AM T [facility] Q56651 Epilepsy, unspecified, not intractable, without status epilepticus Epilepsy, unspecified, not intractable, without status epilepticus Diagnosis 01/13/2020 01:42:00 PM T [facility] 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 N71843 Other urethral stricture, male, unspecif ied site Other urethral stricture, male, unspecified site Diagnosis 12/31/2019 08:45:00 AM [facility] R3121 Asymptomatic microscopic hematuria Asymptomatic microscopic hematuria Diagnosis 12/31/2019 08:45:00 AM [facility] Z1159 Encounter for screening for other viral diseases Encounter for screening for other viral diseases Diagnosis 12/28/2019 09:05:00 AM [facility] Z713 Dietary counseling and surveillance Dietary coun seling and surveillance Diagnosis 12/14/2019 12:59:00 PM [facility] R99 Ill-defined and unknown cause of mortali ty Ill-defined and unknown cause of mortality Diagnosis 12/14/2019 12:20:00 PM [facility] M6281 Muscle weakness (generalized) Muscle weakness (general ized) Diagnosis 11/29/2019 10:16:00 AM [facility] M545 Low back pain Low back pain Diagnosis 11/29/2019 10:16:00 AM [facility] E785 Hyperlipidemia, unspecified Hyperlipidemia, unspecifie d Diagnosis 11/25/2019 12:56:00 PM [facility] K5900 Constipation, unspecified Constipation, unspecified Di agnosis 11/25/2019 12:56:00 PM [facility] K219 Gastro-esophageal reflux disease without esophagitis Gastro-esophageal reflux disease without esophagitis Diagnosis 11/25/2019 12:56:00 PM ED T [facility] [id number] Other spondylosis, thoracic region Other spondyl osis, thoracic region Diagnosis 11/19/2019 10:35:00 AM EDT [facility] G66078 Other spondylosis, lumbar region Other spondylos is, lumbar region Diagnosis 11/19/2019 10:35:00 AM EDT [facility] Z1331 Encounter for screening for depression E ncounter for screening for depression Diagnosis 11/18/2019 02:08:00 PM EDT [facility] J309 Allergic rhinitis, unspecified Allergic rhinitis, unsp ecified Diagnosis 11/18/2019 02:08:00 PM EDT [facility] R310 Gross hematuria Gross hematuria Diagnosis 10/21/2019 03:3 1:00 PM EDT [facility] R300 Dysuria Dysuria Diagnosis 10/21/2019 03:31:00 PM ED T [facility] Surgeries/Procedures Procedure Description Date Indications Data Source(s) SURGERY CASE REQUEST OUTSIDE FACILITY ONLY SURGERY CA SE REQUEST OUTSIDE FACILITY ONLY Routine 06/28/2020 1:27 PM EST Arthritis of right subtalar joint Closed displaced fracture of right talus, unspecified fracture morphology, sequela 06/28/2020 01:27:23 PM EST Closed displa loyd fracture of right talus, unspecified fracture morphology, sequelaArthritis of right subtalar joint [facility] Closed displaced fracture of right talus , unspecified fracture morphology, sequela Arthritis of right subtalar joint BLOOD TYPING ABO TYPE AND SCREEN Routine 02/09/2020 12:30 PM EDT 02/09/2020 04:30:00 PM EDT [facility] ECG ROUTINE ECG W/LEAST 12 LDS TRCG ONLY W/O I&R ECG 12-LEAD Routine 02/04/2020 11:34 AM EDT Incisional hernia with obstruction 02/04/2020 03:34:20 PM ED T Incisional hernia with obstruction [facility] Incisional hernia with obstruction BLOOD COUNT COMPLETE AUTOMATED CBC Routine 0 11:30 AM EDT Incisional hernia with obstruction 02/04/2020 03:30:00 PM ED T Incisional hernia with obstruction [facility] Incisional hernia with obstruction BASIC METABOLIC PANEL CALCIUM TOTAL BASIC METABOLIC PANEL Routi ne 02/04/2020 11:30 AM EDT Incisional hernia with obstruction 02/04/2020 03:30:00 PM ED T Incisional hernia with obstruction [facility] Incisional hernia with obstruction Medical Nutrition Therapy Assmnt Interv Face To Face 15 Min 12/14/2019 12:00:00 AM EDT [facility] ([facility]) Brief Emotional/Behav Assessment W/ Scoring Doc Per Standard Inst 11/18/2019 12:00:00 AM EDT [facility] ([facility]) EST-LEVEL 4 10/06/2019 12:00:00 AM EDT - 10/06/2019 1 2:00:00 AM EDT [facility] ([facility]) Debridement, nails, 6 or more, any method 10/06/2019 12:00:00 AM EDT - 10/06/2019 12:00:00 AM EDT [facility] ([facility]) Results ID Date Data Source [id number] 08/09/2020 02:33:00 PM EST [facility] Name Value Range Interpretation Code Description Data Giovana rce(s) Supporting Document(s) SARS-CoV-2 (COVID 19) NEGATIVE - SARS-CoV-2 (COVID19) [facility] This lab was ordered by [facility] a nd reported by [facility]. ID Date Data Source [id number] 07/31/2020 05:40:00 PM EST [facility] Name Value Range Interpretation Code Description Data Giovana rce(s) Supporting Document(s) SARS coronavirus 2 RNA [Presence] in Res piratory specimen by TYRON with probe detection [facility] This lab was ordered by [facility] a nd reported by [facility]. ID Date Data Source [id number] 06/28/2020 01:51:39 PM EST [facility] Name Value Range Interpretation Code Description Data Giovana rce(s) Supporting Document(s) Progress Note [facility] QESPUr1wNzHPPqCe10/FJExqKTCph9YxOMdiWBc0TNyjDSYvR2KfMTD3eN3lIEL8RZyYEvGfKaBcOkJl [facility] [file] ICAgICAgICAgICAgICAgICAgICAgICAgICAgICAgICAgICAgICAgICAgICAgICAgICAgICAgICAgICAg ICAgICAgICAgICAgICAgICAgICAgICANCiAgICAgIC AgICAgICAgICAgICAgICAgICAgICAgICAgICAgICAgICAgICAgICAgICAgICAgICAgICAgICAgICAgIC AgICAgICAgICAgICAgICAgICAgICAgICAgICAgICAgICANCiAgICAgICAgICAgICAgICAgICAgICAgIC AgICAgICAgICAgICAgICAgICAgICAgICAgICAgICAg ICAgICAgICAgICAgICAgICAgICAgICAgICAgICAgICAgICAgICAgICAgICANCiAgICAgICAgICAgICAg ICAgICAgICAgICAgICAgICAgICAgICAgICAgICAgICAgICAgICAgICAgICAgICAgICAgICAgICAgICAg ICAgICAgICAgICAgICAgICAgICAgICAgICANCiAgIC AgICAgICAgICAgICAgICAgICAgICAgICAgICAgICAgICAgICAgICAgICAgICAgICAgICAgICAgICAgIC AgICAgICAgICAgICAgICAgICAgICAgICAgICAgICAgICAgICANCiAgICAgICAgICAgICAgICAgICAgIC AgICAgICAgICAgICAgICAgICAgICAgICAgICAgICAg ICAgICAgICAgICAgICAgICAgICAgICAgICAgICAgICAgICAgICAgICAgICAgICANCiAgICAgICAgICAg ICAgICAgICAgICAgICAgICAgICAgICAgICAgICAgICAgICAgICAgICAgICAgICAgICAgICAgICAgICAg ICAgICAgICAgICAgICAgICAgICAgICAgICAgICANCi AgICAgICAgICAgICAgICAgICAgICAgICAgICAgICAgICAgICAgICAgICAgICAgICAgICAgICAgICAgIC AgICAgICAgICAgICAgICAgICAgICAgICAgICAgICAgICAgICAgICANCiAgICAgICAgICAgICAgICAgIC AgICAgICAgICAgICAgICAgICAgICAgICAgICAgICAg ICAgICAgICAgICAgICAgICAgICAgICAgICAgICAgICAgICAgICAgICAgICAgICAgICANCiAgICAgICAg ICAgICAgICAgICAgICAgICAgICAgICAgICAgICAgICAgICAgICAgICAgICAgICAgICAgICAgICAgICAg ICAgICAgICAgICAgICAgICAgICAgICAgICAgICAgIC ANCjw/hIUqT2fbsZYiinA3I7ymYk2KUx5RUR8xc5AzZMGoPBihqwDhGvkRNlGeFLBrMmwWDqt4LXwmNX 0DpJAiI7FmF3OhKElzFH5WMMPcSAHvyJRaIDXpGIBzMmT5VVGsTUppFR9VfFQfRCdaZMIwZIBdKfBfND HcOG5RNVPrN179dhFjPs8TZf7JNiVpTU7luy9EVdqm QTBcGrhRVez3JYvyQY0DrERotYZvMMZvUAYPQgGrQ3awk0CzMgneGAEJUIyoAO3Ms2AolKHkZUs+Pg0K PT2jb7QfYDwzNYPcLM7jnr6FOImTOyUuJ0XdwXyqGZJbq3itZEZbHS3zlZWqLKK9PGVdu0Q5SY2aWtYa acPlw5QnKlYvTawlERWmTVQkABKcWu6mZXNjSTGzNv FcUWJNKK7AFKMbQQIeaJPbRWOiSKAUUN8KZXduWKG9FRXmyeHoqSGvZSxqSM6WWGUhgtJzDvvdINDPBF o+Sp0HZA1qy6AaRBrsTTAaSG0jvt0VEEcDZjVkJ1T8zKNpY5S8EYelOr0VPGFcLKEoHzCrZDHKASbzGQ 7WSL0dcbM7HM9BlCXpQTKlRFWamZCiNDp9E24gwWVl XVjdBM6KKEL+Jey+Za6KTGIoFZQoNDAhMsWfNLTDNrFjG8WkC3HBm5NdR0RtYA93aIrzmhOuXUeiXB6G SV4qIBOeTOXEFF6NeYOlyG4fjgHcHqXbRPVAAaKlY34diLMfXBHlBUM7QFWiSg4TLJGyV1DafrDbfFxt tqQkUIAwRPRJNY9XDHrvteRanQZykKzeZZ22kJjbTG 9HFq2KUnCaYM8oro9JeKLdSy8CQEOrLV5ACHAqSTHcADMuIZK1WUZtAeUsWMuhELLlYMLvEVY6YGFvGE HfNR1VWuTdKTFwWvV8RYCfABYuXZQpud4VISXbRUCmSkA4PrAtIXDsLRIhQZqtXUYwQJLgIKG5LMRqOU DtUF5ODhYeOHGtXAI3FLIkTCNjSYEhmy0CYHSnQQLa ZLI7YtEcFZHhUUZhMXdzAAUyMPP0GFUyZYTsKUHiEK8DTmVnXZWwGWbtIVPqAXPnIHWxac6LSGUpFKJi ZNS1XaAhWYEbUUEbGAixLOAzZDT4YiD6ERMrBFYhGM8QOkLuFSOwOOa0NXYbTGPjXUDdye8GJWLpOGFc OAU5ZZRkLRVnWZWaXMnuBIIxJON8RkMpJXIdGJKdLF 3IJhWdAHKuAZe3KXgzIHVaQEVfdw6CWVPrEICsYMI8AVGmQZNsOKPmXIwfFENbNTXfTLJxJAPkAJEcQF 8VAkHgAKPeTlL7IxigBZRtDQXppc0ZOQAsNHGzXhZtCLWsHOBoDHMpIDevSDVsGCKqWXW5ONTqIYSmJM 0XOpEoQUIiOxZaXUndXHRuOZMtuf2CQDTpVSEuPtG3 IEMoDRLvLVXxBJlkGGYtBLNeUGw9CEZkHERcSH5JRgLiNTJoJrO2VSrsYMOnYGIvhb8YILKbQKWcNHBb ByRhNIZxCZLdPIjnKRJwXSB2Kxz4MMIlHOPhVL2KVsXrFDYcWeInGLlfAQLtAYWpdc5IAOQcBZDmAtG9 ZFWyJPQqFLYkDQgdQQUpUXW7PlAvFJMxWNRbPI6EOn RmCDGdGgW4XWbvYHSoBNJqbi3YtTOrfYaheq5OJFcTKn4FpVbzPYQiDXhcUz2fcWKhANHsIMVJVj8Xnp IsGCDqZPMJBZtnUKEsUKUgHpPsGuNyLqF6RQXcERQ5LQSeWaouJuCkCeRpMCHkRyE2ITXlFQQrFQGuMC FlP7QkHslhUNNeQQW9EYHrOAW6EjP+SK4pDGr+Vk1Ki1LdfeP5bdWvGCfyFnOrMr9ANOZIF3WBMl== ID Date Data Source [id number] 06/06/2020 03:12:03 PM [facility] Name Value Range Interpretation Code Description Data Giovana rce(s) Supporting Document(s) Progress Note [facility] SEZQLr9eRkBXAySj69/YWEbeBPGil4EiFIfwEGf8IXylPDAiM0FkKUL4oE6wUIW5CWtMCcJcWqKzBPDn lbm [file] FhN7BYK3EtP4YxW+MR5bQIm+Js1Qa7VsdyR1pjIyOYomKJSuQz3XFHJQB4UBNw== ID Date Data Source [id number] 05/10/2020 10:14:00 AM EDT [facility] ([facility]) Name Value Range Interpretation Code Description Data Giovana rce(s) Supporting Document(s) Surgical pathology study Laboratory test result [facility] ([facility]) FINAL DIAGNOSIS Esophagus, below Z-line, biopsy: Junctional mucosa with no significant pathologic changes. No evidence of intestinal metaplasia or dysplasia. 05/11/2020 150 CLINICAL DIAGNOSIS Heartburn, rectal bleeding, constipation 05/10/20201450 GROSS DIAGNOSIS Received in formalin labeled "biopsy below Z line R/O Juarez's" and consists of two fragments of steel tissue measuring 0.4 x 0.3 x 0.2 cm. in aggregate. All in one. -SV 05/10/20201450 Signed BRIE MONTAGUE MD 05/12/2020 1140 ID Date Data Source [id number] 05/09/2020 02:17:55 PM EDT [facility] Name Value Range Interpretation Code Description Data Giovana rce(s) Supporting Document(s) Progress Note [facility] SGCPZa5tDbEYQqDz15/OIIoaFVJwc3CdZTtwQTv3KSmpUJBdQ1AbLBP3lV5gXNA5GQcDTeEyDjQhYVTs [facility] [file] ICAgICAgICAgICAgICAgICAgICAgICAgICAgICAgICAgICAgICAgICAgICAgICAgICAgICAgICAgICAg ICAgICAgICAgICAgICAgICAgICAgICAgICAgICAgICAgDQogICAgICAgICAgICAgICAgICAgICAgICAg ICAgICAgICAgICAgICAgICAgICAgICAgICAgICAgIC AgICAgICAgICAgICAgICAgICAgICAgICAgICAgICAgICAgICAgICAgICAgDQogICAgICAgICAgICAgIC AgICAgICAgICAgICAgICAgICAgICAgICAgICAgICAgICAgICAgICAgICAgICAgICAgICAgICAgICAgIC AgICAgICAgICAgICAgICAgICAgICAgICAgDQogICAg ICAgICAgICAgICAgICAgICAgICAgICAgICAgICAgICAgICAgICAgICAgICAgICAgICAgICAgICAgICAg ICAgICAgICAgICAgICAgICAgICAgICAgICAgICAgICAgICAgDQogICAgICAgICAgICAgICAgICAgICAg ICAgICAgICAgICAgICAgICAgICAgICAgICAgICAgIC AgICAgICAgICAgICAgICAgICAgICAgICAgICAgICAgICAgICAgICAgICAgICAgDQogICAgICAgICAgIC AgICAgICAgICAgICAgICAgICAgICAgICAgICAgICAgICAgICAgICAgICAgICAgICAgICAgICAgICAgIC AgICAgICAgICAgICAgICAgICAgICAgICAgICAgDQog ICAgICAgICAgICAgICAgICAgICAgICAgICAgICAgICAgICAgICAgICAgICAgICAgICAgICAgICAgICAg ICAgICAgICAgICAgICAgICAgICAgICAgICAgICAgICAgICAgICAgDQogICAgICAgICAgICAgICAgICAg ICAgICAgICAgICAgICAgICAgICAgICAgICAgICAgIC AgICAgICAgICAgICAgICAgICAgICAgICAgICAgICAgICAgICAgICAgICAgICAgICAgDQogICAgICAgIC AgICAgICAgICAgICAgICAgICAgICAgICAgICAgICAgICAgICAgICAgICAgICAgICAgICAgICAgICAgIC AgICAgICAgICAgICAgICAgICAgICAgICAgICAgICAg DQogICAgICAgICAgICAgICAgICAgICAgICAgICAgICAgICAgICAgICAgICAgICAgICAgICAgICAgICAg UBIuXNMhLKKvUEAkZXNqRWKhUVYnYYJsONCjJSTkYVSaGTKfCGHtIBIiDQs1I2mrNPQuCRToOJ8aXGo4 Jz8+RYcOQkAwATS8rbLczX3XOU0tf9FxAYkvQRBce7 MkDLy5DK9ORQEnFHgoOC5LDRcfwb9OBBZtJCGruMZXz5tqVtStBGT3VADeHxtdDS0WFIPxR9udfkGjNY OlKCJRTIkgUHMNBHivIPZLWUDcXTFfEiJwBZbfEV9Ua2YnvYN4GBx+Mx7BLX8hb1IjPZtaBEPjRN4vwd 5YNLmSLyBpP6ZxvaE0UXDqZUQxDo7ORROrQPUfwXNo SxWuEPTKFtIaE5ZklW24MZHQFd0+AKgsllTvMhvRUlLgHUYal4FlMMh7QZ0DOSRvGCm6fFCoDJAfA4Ut w9KmTk11CQZeIqwaQ4NoaBfjnbZXCUMsXGtmsMgnEP2SHCG3ZBHrSpGnHoYuDxBpJIL6IOIvTR3jOFer IV7RGCF2FWytYXWdDZCzY1kUBdAuNSXyGUExcOwgRJ 9EDrUgE8ZkyqSsuNNeHOGvLQJKIm7+AMrwdzSyPaoUWjGvBJOxp7ZaTPp6FY6IDDXaQIrjXZ0IIADdtT 9qVZleUS8DMgDuGVDoPYOBInOfH75ilPOdJTu2T4OaVuHkPRBeVaauXSKoMXmbPtXoQBEtWpEjXZneNW 4+ID4+DBuuQS2SVBatzjVmHVZbRx9NABMkNEWmGB2f TEDlPPXfP9Z3tZsyFGFYPpWqU1rmhwwrXR7xUXMcO590aRwjgvBdCXNaCAOoVf2FFFSpIWH6TBDutCBt MuKmXIGZQZlrTK8RyIJzINZ6gE9wRQbnEWOuSIQuV4tTNvZxlWoxBY56sUzixdZqzEWmNDj+He3PUA6z e6YbUAp1ysXuZAxhFGA5GWwhRHIsMSZmHLCwZKK5KA M2FZXDNqQiSXPpODEzJRcoZGSmMNGlmo5NISMfPRR1Zga9YGCxRZYhSFNzMAhdQOIeWIS5UAd4CRScJT ImIY9QFtTmDAThJTGqSKrcTSTrUOZjml2ZBPNrGPOuYbE8NkIhCOEhOKQuSFhoUXQtGLJmUMPpVVWgTW ThBK9GWmAcUAGlESwqZSFuQECvECKtnp1NLBSlBDJh AaM2RsFjIAQlCRIaFImxSDYlQRVmKmR6AECeQZIhCL0MUgSaUTMtXDN7OmHgAQSrAEEsdd8KVZStWJGv SzClEDLpTROhJZKeRFokCJHtVDUpKsN4MXZoMVAzYU0OXaPsJIWbBONlBOYpNVUbTNVuhw4DWELdYXFd KSI3GWYuYDMeBCZmPMywMYQtEKE9CbU2MRAeKNFsHM 0EBkEwUVBpCIZ4KyXtEHGhXEEkgf4XATByBVJmPWxaFVPtEGNjHBTcLPnnNIUsHAL9UWIxDWVcFZZsHK 0AJaRfMEFgYVxuTVQkZFLvKNOwga1USEDfYTO5HGc1DhDrPOFfFTEeLOamNDIvLBZhNnHzKZJqMEUvZK 3TAoIoWYFeVBBrBmOwFFJvHJAebq5UPVTmPNL8TLTv NuKpEFTrVYJdSDhaCAHiKLDmGKScSXEqWGKgYL8IEgRuYVNaUJDbDOGxQWEiHXOdxd7WPFVoKHZ4JqSq JlKtDEDzNQFoPPwiKFXjISEeBCN2IWUeFOTuTM3XHdQdZBDuCTN0COXxAFNrDMFlnq0WACJgNOF1Wapl WpUgFPHtKEFhHEuxKVEgHUJ4VsA4VSBbIPVySF7NDn VoDBVuMCT6OVFlEICtVWBtvq2OCACmVKU1VZs4UtWyTTAvYORfJRroJDAkPUU7ZJN2JZGpGSXkCN7DVe RnDYdmVGJCGaj8BBzbT9c5VXXcOT8AO8Uat5RjNpMkYWLFUMxtLY0xhlFhEZFzLb4AT4kGDqm0QSNkL8 DwBoChJUP6MLqsYrMuCbE4XxcuHrCdYmN7GD9uVJVb SIZ8NVAuLeU2ANYpQBS0TSRlZQBnDRXcD2CeVPthYrQeNB2DKf0EYaK0KBY5zPGiZk2VHPWtEHKTYjTa OP2ATFk= ID Date Data Source [id number] 05/05/2020 11:55:00 AM EDT [facility] Name Value Range Interpretation Code Description Data Giovana rce(s) Supporting Document(s) SARS coronavirus 2 RNA [facility] This lab was ordered by [facility] and reported by [facility]. ID Date Data Source [id number] 04/27/2020 06:09:28 AM EDT [facility] XR FOOT 3 OR MORE VIEWS [id number] RESUL TInterpreted by:Fallon Smith ankle 2 views [...] rce(s) Supporting Document(s) ID Date Data Source [id number] 04/27/2020 06:09:28 AM EDT [facility] XR ANKLE 2 VIEWS [id number] RESULTInterp reted by:Fallon Smith ankle 2 views [...] rce(s) Supporting Document(s) ID Date Data Source [id number] 04/26/2020 04:20:41 PM [facility] Name Value Range Interpretation Code Description Data Giovana rce(s) Supporting Document(s) Progress Note [facility] XIDLHa5hChCMToWe54/DJLhgAENqd2CsOCewZVo5NIoeTXDyH0BeXDN5dC7lHQO0UItPZkTjLoBeSHWx m [file] xnBgQkZD6DGk8FJaE5LIW6lUFbBt7JUfV3EuzUNuNiRW3SCFa= ID Date Data Source [id number] 03/29/2020 12:20:00 [place] [address] PHONE: [phone] FAX: [phone] Name .................. : GAVIOTA Cervantest Number.................. : [id number] ROOM. ................. : MR Number ................... : [id number] Stay type ............. : CLINIC Discharge Date......... ... : 03/27/20 Admit Date ......... : 03/27/20 Admit Phys .................... : HESTER HARD Date of ....... : 1990 Family Phys ................... : HESTER HARD Phone .................. : [phone] Age ................................ : 29 Film# .................. .:[id number] Sex ................................. : M Unsigned transcriptions are preliminary reports and do not represent a medical or legal document CT ABD & PELV W/O ORAL W/O IV [id number] COMPLETE:03/27/20 14:16 RLB 51304 (REASON FOR ABDOMEN: LOWER ABD PAIN CT [...] dose: 2953.0 mGycm Page 1 of 2 [facility] [address] [place] [address] PHONE: [phone] FAX: [phone] Name .................. : GAVIOTA Madison Acct Number.................. : [id number] ROOM. ................. : Number ................... : [id number] Stay type ............. : CLINIC Discharge Date......... ... : 03/27/20 Admit Date ......... : 03/27/20 Admit Phys .................... : [employer] Date of ....... : 1990 Family Phys ................... : [employer] Phone .................. : [phone] Age ................................ : 29 Film# .................. .:[id number] Sex ................................. : M Unsigned transcriptions are preliminary reports and do not represent a medical or legal document CT ABD & PELV W/O ORAL W/O IV [id number] COMPLETE:03/27/20 14:16 RLB 32582 (REASON FOR ABDOMEN: LOWER ABD PAIN Electronically Reviewed and Signed By Yousif Bernardo M.D. , 03/29/20 12:20, [place] Transcribe Initials: DZ , Transcribe Date: 03/27/20 23:48, Dictation Date: Page 2 of 2 Name Value Range Interpretation Code Description Data Giovana rce(s) Supporting Document(s) ID Date Data Source [id number] 03/22/2020 03:26:00 PM EDT [facility] 1 OrderSheet [facility] Emergency Department [address] [place] [address] Phone #: ext- [phone] 03/22/2020 15:24 Patient: [...] InitialedAtivan IM 1 mg 15:41 03/22/2020 16:03 Banda,(HIGH ALERT Cleo Gruber R.N.MEDICATION) Byron;GENERAL ORDERSOrder Description Priority Entered Acknowledged InitialedNPO 15:41 03/22/2020 15:42 Rc Banda Riccardo Tiffany R.N. M.D.;[Electronically signed by Enedina Banda R.N. (17:25 03/22/2020)][Electronically signed by Cleo Gruber M.D. (17:36 03/22/2020)][Electronically locked by Enedina Banda R.N. (17:03/22/2020)] Name Value Range Interpretation Code Description Data Giovana rce(s) Supporting Document(s) ID Date Data Source [id number] 03/22/2020 03:26:00 PM EDT [facility] 1 Medication Reconciliation Report [facility] Emergency Department [address] [place] [address] Phone #: ext- [phone] 03/22/2020 15:24 Patient: [...] ODT Oral, prn 2 Medication Reconciliation Report [facility] Emergency Department [address] [place] [address] Phone #: ext- [phone] 03/22/2020 15:24 Patient: NICK TRUJILLO Sex: M : 1990 Age: 29yThe source(s) of the original Home Medication information:patientThe following Medications were given to the patient in the Emergency Department:Ativan [IM] IM 1 mg, administered: 03/22/2020 4:03:00 PMThe following Medications were prescribed to the patient:None. Name Value Range Interpretation Code Description Data [facility] Supporting Document(s) ID Date Data Source [id number] 03/22/2020 03:26:00 PM EDT [facility] 1 Medication Administration Record [facility] Emergency Department [address] [place] [address] Phone #: ext- [phone] 03/22/2020 15:24 Patient: NICK TRUJILLO Sex: M : 1990 Age: 29yWeight: 190.5 kgHeight/Length: 71 inBMI: 58.6ALLERGIES: Dilantin, Naproxen, Naproxsyn, Tylenol with codein Date/Time Medication Administered Medication OrderedGiven ATIVAN [IM] (LORAZEPAM) Ativan IM 1 mg (HIGH ALERT16:03 03/22/2020 Dose: 1 mg IM MEDICATION)Enedina Banda R.N. Name Value Range Interpretation Code Description Data Giovana rce(s) Supporting Document(s) ID Date Data Source [id number] 03/22/2020 03:26:00 PM EDT [facility] 1 General Instructions [facility] Emergency Department [address] [place] [address] Phone #: ext- [phone] 03/22/2020 15:24 Patient: NICK TRUJILLO Sex: M : 1990 Age: 29yChronic periumbilical abdominal pain, now resolved. (recurrent).INSTRUCTIONSDrink plenty of fluids. Avoid alcohol and NSAIDS. NSAIDS include aspirin, ibuprofen (Advil) and naproxen(Aleve). Avoid fatty, fried/greasy, lactose-containing (such as milk, cheese and ice cream), salty and spicyfoods. No alcohol. Do not smoke.Warnings: Further evaluation is necessary ([facility]). It is very important to [...] provided to patient viapaper. 2 General Instructions [facility] Emergency Department [address] [place] [address] Phone #: ext- [phone] 03/22/2020 15:24 Patient: NICK TRUJILLO Sex: M : 1990 Age: 29yUnderstanding of the discharge instructions verbalized by patient. Expected course of illness, dischargeinstructions, activity level, diet, follow-up appointment and risks and benefits of treatment reviewed withpatient and understanding verbalized. Agrees to plan of care.Follow-up with: [facility], , , [address] [address], [id number] Follow up in five days even if [...] options include broth, soup, 3 General Instructions [facility] Emergency Department [address] [place] [address] Phone #: ext- [phone] 03/22/2020 15:24 Patient: [...] chest, arm, back, neck or jaw pain [phone] [employer]. [address] [place] [address], [place] [address]. All rights reserved. This information is not intended as asubstitute for professional medical care. Always follow your healthcare professional's instructions. You have been given the following additional information: Unknown Causes of Abdominal Pain (Male)(Electronically signed by Cleo Gruber M.D. 03/22/2020 17:36) Name Value Range Interpretation Code Description Data Giovana rce(s) Supporting Document(s) ID Date Data Source [id number] 03/22/2020 03:26:00 PM EDT [facility] 1 Clinical Report - Nurses [facility] Emergency Department [address] [place] [address] Phone #: ext- [phone] 03/22/2020 15:24 Patient: [...] Osei R.N. 2 Clinical Report - Nurses [facility] Emergency Department [address] [place] [address] Phone #: ext- [phone] 03/22/2020 15:24 Patient: [...] Osei R.N. 3 Clinical Report - Nurses [facility] Emergency Department [address] [place] [address] Phone #: ext- [phone] 03/22/2020 15:24 Patient: NICK TRUJILLO Sex: M : 1990 Age: 29y 15:59 03/22/20. BP: 141/76. MAP: 97. HR: 98. RR: 20. O2 saturation: 100%. --15:59 03/22/20 Olga otr [employer] driverEnedina ER Tech1 16:03 03/22/2020 Ativan (LORazepam) IM 1 mg given. Given in the right deltoid. Allergies verified and confirmed 5 rights. Information reviewed with patient including sedative warning. Verbalizes understanding. --16:03 03/22/20 Enednia Banda R.N.DISPOSITION / DISCHARGE 17:22 03/22/20. BP: 132/71. HR: 102. RR: 20. O2 saturation: 100%. Temp: 98.1 F. Pain level now 0/10. --17:23 03/22/20 Enedina Banda R.N. Departure time: 17:24 03/22/2020. No learning barriers present. Discharge instructions provided and reviewed with the patient. Reviewed warnings. Patient verbalized understanding. Written instructions provided in Palestinian. The patient was discharged home. He left ambulatory and via private vehicle. --17:24 03/22/20 Enedina Banda R.N.Locked/Released at 03/22/2020 17:25 by Enedina Banda R.N. Name Value Range Interpretation Code Description Data Giovana rce(s) Supporting Document(s) ID Date Data Source [id number] 03/22/2020 03:26:00 PM EDT [facility] 1 Clinical Report - Physicians/Mid Levels [facility] Emergency Department [address] [place] [address] Phone #: ext- [phone] 03/22/2020 15:24 Patient: [...] umbilical hernia repair several weeks ago at [facility], saw his surgeon last week for [...] Cholecystectomy. 2 Clinical Report - Physicians/Mid Levels [facility] Emergency Department [address] [place] [address] Phone #: ext- [phone] 03/22/2020 15:24 Patient: NICK TRUJILLO Sex: M [...] saturation: 97%. Temp: 98.5F. Pain level now: 1010. Have been reviewed. Oxygen saturation normal.Appearance: Alert. [...] pulses 3 Clinical Report - Physicians/Mid Levels [facility] Emergency Department [address] [place] [address] Phone #: ext- [phone] 03/22/2020 15:24 Patient: NICK TRUJILLO Sex: M : 1990 Age: 29y equal. [...] 8.2) 4 Clinical Report - Physicians/Mid Levels [facility] Emergency Department [address] [place] [address] Phone #: ext- [phone] 03/22/2020 15:24 Patient: [...] be referred to our surgeon here at [facility] for his chronic, recurrent abdominal pain, we [...] (recurrent). 5 Clinical Report - Physicians/Mid Levels [facility] Emergency Department [address] [place] [address] Phone #: ext- [phone] 03/22/2020 15:24 Patient: NICK TRUJILLO Sex: M : 1990 Age: 29yINSTRUCTIONS Drink plenty of fluids. Avoid alcohol and NSAIDS. NSAIDS include aspirin, ibuprofen (Advil) and naproxen (Aleve). Avoid fatty, fried/greasy, lactose-containing (such as milk, cheese and ice cream), salty and spicy foods. No alcohol. Do not smoke. Warnings: Further evaluation is necessary ([facility]). It is very important to [...] plan of care. Follow-up with: [facility], , , [address] [place] [address], [facility] Follow up in five days even if well. Call for an appointment. Reason for referral: evaluation and treatment. Summary of care provided to patient via paper. 6 Clinical Report - Physicians/Mid Levels [facility] Emergency Department [address] [place] [address] Phone #: ext- [phone] 03/22/2020 15:24 [id number] Sex: M : 1990 Age: 29y(Electronically signed by Cleo Gruber M.D. 03/22/2020 17:36) Name Value Range Interpretation Code Description Data Giovana rce(s) Supporting Document(s) ID Date Data Source [id number] 03/22/2020 04:34:00 PM EDT [facility] Name Value Range Interpretation Code Description Data Giovana rce(s) Supporting Document(s) Lipase [Enzymatic activity/volume] in Serum or Plasma 34 U/L 13 - 60 [facility] ID Date Data Source [id number] 03/22/2020 04:34:00 PM EDT [facility] Name Value Range Interpretation Code Description Data Giovana rce(s) Supporting Document(s) COMPREHENSIVE METABOLIC PANEL [facility] COMPREHENSIVE METABOLIC PANEL Sodium [Moles/volume] in Serum or Plasma 140 mEq/L 134 - 153 [facility] Potassium [Moles/volume] in Serum or Plasma 4.2 mEq/L 3.6 - 5.0 [facility] Chloride [Moles/volume] in Serum or Plasma 106 mEq/L 98 - 107 [facility] Carbon dioxide, total [Moles/volume] in Serum or Plasma 24 MEQ/L 22 - 30 [facility] Glucose [Mass/volume] in Serum or Plasma 110 MG/DL 65 - 110 [facility] BUN 12 MG/DL 7 - 21 [facility] Creatinine [Mass/volume] in Serum or Plasma 0.9 MG/DL 0.7 - 1.5 [facility] BUN/CREAT 13 8 - 27 [facility] Protein [Mass/volume] in Serum or Plasma 7.7 G/DL 6.3 - 8.2 [facility] Albumin [Mass/volume] in Serum or Plasma 4.1 G/DL 3.9 - 5.0 [facility] Globulin [Mass/volume] in Serum by calculation 3.6 GM/DL 2.4 - 3.2 H [facility] A/G RATIO 1.1 0.8 - 2.0 [facility] Calcium [Mass/volume] in Serum or Plasma 9.0 MG/DL 8.4 - 10.2 [facility] Bilirubin.total [Mass/volume] in Serum or Plasma <0.7 MG/DL 0.2 - 1.3 [facility] Alkaline phosphatase [Enzymatic activity/volume] in Serum or Plasma 83 U/L 38 - 126 [facility] Aspartate aminotransferase [Enzymatic activity/volume] in Serum or Plasma 27 U/L 5 - 40 [facility] Alanine aminotransferase [Enzymatic activity/volume] in Seru m or Plasma 37 U/L 7 - 56 [facility] Anion gap 3 in Serum or Plasma 10.0 mmol/L 8.0 - 16.0 [facility] AGE [address] [facility] NON-AA GFR >60 mL/min [facility] AFR AMER GFR >60 mL/min [facility] Male GFR In terprentation 20-49 [...] >32 mL/min Normal ID Date Data Source [id number] 03/22/2020 04:15:00 PM EDT [facility] Name Value Range Interpretation Code Description Data Giovana rce(s) Supporting Document(s) CBC W/AUTOMATED DIFF [facility] COMPLETE BLOOD COUNT Leukocytes [#/volume] in Blood by Automated count 9.6 10^3/uL 4.2 - 1 1.0 [facility] Erythrocytes [#/volume] in Blood by Automated count 5.41 10^6/uL 4. 50 - 6.30 [facility] Hemoglobin [Mass/volume] in Blood 15.9 g/dL 14.0 - 16.0 [facility] Hematocrit [Volume Fraction] of Blood by Automated count 48.7 % 4 1.0 - 51.0 [facility] Erythrocyte mean corpuscular volume [Entitic volume] by Auto mated count 90.0 fL 80.0 - 94.0 [facility] Erythrocyte mean corpuscular hemoglobin [Entitic mass] by Automated count 29.4 pg 27.0 - 34.0 [facility] Erythrocyte mean corpuscular hemoglobin concentration [Mass/volume] by Automated count 32.6 g/dL 31.0 - 36.0 [facility] Erythrocyte distribution width [Ratio] by Automated count 14.4 % 11.5 - 14.8 [facility] Platelets [#/volume] in Blood by Automated count 197 10^3/uL 150 - 45 0 [facility] Platelet mean volume [Entitic volume] in Blood by Automated count 9.0 fL 7.4 - 10.4 [facility] Neutrophils/100 leukocytes in Blood by Automated count 63.6 % 37. 0 - 80.0 [facility] Lymphocytes/100 leukocytes in Blood by Manual count 22.2 % 25.0 - 40.0 L [facility] Monocytes/100 leukocytes in Blood by Automated count 9.9 % 3.0 - 8.0 H [facility] Eosinophils/100 leukocytes in Blood by Automated count 3.7 % 0.0 - 7.0 [facility] Basophils/100 leukocytes in Blood by Automated count 0.3 % 0.0 - 2.0 [facility] %IG 0.3 % 0.0 - 0.[address] [facility] %NRBC 0.0 % 0.0 - 0.0 [facility] al Neutrophils [#/volume] in Blood by Automated count 6.13 10^3/uL 2.00 - 6.90 [facility] Lymphocytes [#/volume] in Blood by Automated count 2.14 10^3/uL 0.60 - 3.40 [facility] Monocytes [#/volume] in Blood by Automated count 0.95 10^3/uL 0.00 - 0.90 H [facility] Eosinophils [#/volume] in Blood by Automated count 0.36 10^3/uL 0.00 - 0.70 [facility] Basophils [#/volume] in Blood by Automated count 0.03 10^3/uL 0.00 - 0.20 [facility] #IG 0.03 10^3/uL 0.00 - 0.10 [facility] ospital #NRBC 0.00 10^3/uL 0.00 - 0.00 [facility]spital MANUAL DIFF NOT INDICATED [facility] RBC MORPH NOT INDICATED [facility] ID Date Data Source [id number] 03/13/2020 02:06:00 PM EDT [facility] [address] [place] [address] PHONE: [phone] FAX: [phone] Name .................. : GAVIOTA Madison Acct Number.................. : [id number] ROOM. ................. : TR-08 MR Number ................... : [id number] Stay type ............. : E/R Discharge Date......... ... : Admit Date ......... : 03/09/20 Admit Phys .................... : TALIA Madison Date of ....... : 1990 Family Phys ................... : HESTER HARD Phone .................. : [phone] Age ................................ : 29 Film# .................. .:[id number] Sex ................................. : M Unsigned transcriptions are preliminary reports and do not represent a medical or legal document CT ABD & PELV W/ORAL ONLY [id number] COMPLETE:03/09/20 21:11 [facility] [id number] Reason(s): Abdominal Pain CT OF THE ABDOMEN [...] 75 Isovue 370 Page 1 of 2 [facility] [address] [place] [address] PHONE: [phone] FAX: [phone] Name .................. : GAVIOTA Madison Acct Number.................. : [id number] ROOM. ................. : TR-08 MR Number ................... : [id number] Stay type ............. : E/R Discharge Date......... ... : Admit Date ......... : 03/09/20 Admit Phys .................... : TALIA Madison Date of ....... : 1990 Family Phys ................... : HESTER HARD Phone .................. : [phone] Age ................................ : 29 Film# .................. .:[id number] Sex ................................. : M Unsigned transcriptions are preliminary reports and do not represent a medical or legal document CT ABD & PELV W/ORAL ONLY [id number] COMPLETE:03/09/20 21:11 KJE [id number] Reason(s): Abdominal Pain Method of administration: Intravenous Electronically Reviewed and Signed By Yousif Bernardo M.D. , 03/13/20 14:06, [place] Transcribe Initials: GUCCI , Transcribe Date: 03/09/20 23:30, Dictation Date: Copy for: EMERGENCY DEPT via modem Copy for: 710 MED REC DISCHARGED Page 2 of 2 Name Value Range Interpretation Code Description Data Giovana rce(s) Supporting Document(s) ID Date Data Source [id number] 03/09/2020 05:46:00 PM EDT [facility] 1 OrderSheet [facility] Emergency Department [address] [place] [address] Phone #: ext- [phone] 03/09/2020 17:13 Patient: [...] RN, M.D.;Urinalysis (Clean STAT 18:54 03/09/2020 19:13 Thomas Solorzano) Hitesh Melgar RN, M.D.;DIAGNOSTIC STUDY ORDERSOrder Description Priority Entered Acknowledged [...] Description Priority Entered Acknowledged Initialed 2 OrderSheet [facility] Emergency Department [address] [place] [address] Phone #: ext- [phone] 03/09/2020 17:13 Patient: [...] rce(s) Supporting Document(s) ID Date Data Source [id number] 03/09/2020 05:46:00 PM EDT [facility] 1 Medication Reconciliation Report [facility] Emergency Department [address] [place] [address] Phone #: ext- [phone] 03/09/2020 17:13 Patient: [...] ODT Oral, prn 2 Medication Reconciliation Report [facility] Emergency Department [address] [place] [address] Phone #: ext- [phone] 03/09/2020 17:13 Patient: NICK TRUJILLO Sex: M : 1990 Age: 29yThe source(s) of the original Home Medication information:Not obtained.The following Medications were given to the patient in the Emergency Department:None.The following Medications were prescribed to the patient:None. Name Value Range Interpretation Code Description Data Giovana rce(s) Supporting Document(s) ID Date Data Source [id number] 03/09/2020 05:46:00 PM EDT [facility] 1 Medication Administration Record [facility] Emergency Department [address] [place] [address] Phone #: ext- [phone] 03/09/2020 17:13 Patient: NICK TRUJILLO Sex: M : 1990 Age: 29yWeight: 179.1 kgHeight/Length: 71 inBMI: 55.1ALLERGIES: Naproxen, Dilantin, Tylenol with codiene, Naproxsyn, Tylenol with codeinDate/Time Medication Administered Medication Ordered Name Value Range Interpretation Code Description Data Giovana e(s) Supporting Document(s) ID Date Data Source [id number] 03/09/2020 05:46:00 PM EDT [facility] 1 General Instructions [facility] Emergency Department [address] [place] [address] Phone #: ext- [phone] 03/09/2020 17:13 Patient: [...] when you follow up. 2 General Instructions [facility] Emergency Department [address] [place] [address] Phone #: ext- [phone] 03/09/2020 17:13 Patient: NICK TRUJILLO Sex: M [...] red or black color) 3 General Instructions [facility] Emergency Department [address] [place] [address] Phone #: ext- [phone] 03/09/2020 17:13 Patient: NICK TRUJILLO Sex: M : 1990 Age: 29y Jaundice (yellow color of eyes and skin) New onset of weakness, dizziness or fainting New onset of chest, arm, back, neck or jaw pain [phone] [employer]. [address] [place] [address], [place] [address]. All rights reserved. This information is not intended as asubstitute for professional medical care. Always follow your healthcare professional's instructions.Gastritis (Adult)Gastritis is inflammation and irritation of the stomach lining. You can have it for a short time (acute) ky long lasting (chronic). Infection with bacteria called H pylori most often causes gastritis. More thana third of people in the [place] have these bacteria in their bodies. In [...] bloating Feeling full quickly 4 General Instructions [facility] Emergency Department [address] [place] [address] Phone #: ext- [phone] 03/09/2020 17:13 Patient: [...] dizzy Shortness of breath 5 General Instructions [facility] Emergency Department [address] [place] [address] Phone #: [phone]- [phone] 03/09/2020 17:13 Patient: NICK TRUJILLO Sex: M : 1990 Age: 29y Unexplained weight loss Fever of 100.4F (38C) or higher, or as directed by your healthcare provider [phone] [employer]. [address] [place] [address]. All rights reserved. This information is not [...] rce(s) Supporting Document(s) ID Date Data Source [id number] 03/09/2020 05:46:00 PM EDT [facility] 1 Clinical Report - Nurses [facility] Emergency Department [address] [place] [address] Phone #: ext- [phone] 03/09/2020 17:13 Patient: NICK TRUJILLO Sex: M : 1990 Age: 29yTRIAGEArrived by EMS. Historian: patient. ( PT HAD HERNIA SURGERY 4 WEEKS AGO AND HE SAYS MAGNOLIA RIVERA. NO DRAINAGE. PT HAS APPT NEXT TUES WITH SURGEON-DR. FINNEY IN [place].PROCEDURE WASA T [facility]).Triage time: 17:14 03/09/2020. Acuity: LEVEL 3.Chief Complaint: ABDOMINAL PAIN.Alert.The patient has had abdominal pain.Treatment SOCCER COMMENTATOR:None. --17:18 03/09/20 Enedina Banda R.N.17:14 03/09/20. BP: [...] Banda R.N.Naproxsyn. 2 Clinical Report - Nurses [facility] Emergency Department [address] [place] [address] Phone #: ext- [phone] 03/09/2020 17:13 Patient: [...] treatment room. --17:18 03/09/20 Enedina Banda R.N.PHYSICAL VIAIEYYDKB16:29 03/09/20. To room via stretcher.GENERAL / NEURO [...] RR: 16. O2 saturation: 97%. --18:27 03/09/20 [facility] TechEnedina Tech1 18:30 03/09/20. Patient gowned. Head of bed elevated 75 degrees. Two patient identifiers checked. Call light placed in reach. Bed placed in lowest position. Brakes of bed on. Patient ready for evaluation- chart flagged. --18:30 03/09/20 Phillip Drummond RN 3 Clinical Report - Nurses [facility] Emergency Department [address] [place] [address] Phone #: ext- [phone] 03/09/2020 17:13 Patient: NICK TRUJILLO [facility]#: [id number] Sex: M : 1990 Age: 29y 19:16 03/09/2020 Two (2) unsuccessful IV access attempts including the right antecubital space. --19:03/09/20 Phillip Drummond RN Checked patient name and birthdate: patient confirmed. Blood samples drawn by tech. (1909). Checked patient name and birthdate: patient confirmed. Clean catch urine collected; sample sent to lab for urinalysis. Specimen labeled in the presence of the patient (1909). --:03/09/20 Phillip Drummond RN Reassessment acuity: LEVEL 3. [...] Reviewed referral to family practice and a lean manufacturing coordinator for followup. Reviewed need for increased fluid intake. Activity restrictions (rest) reviewed. Patient verbalized understanding. Written instructions provided in Palestinian. The patient was discharged home. He left [...] Peace RN. 4 Clinical Report - Nurses [facility] Emergency Department [address] [place] [address] Phone #: [phone]- [phone] 03/09/2020 17:13 Patient: NICK TRUJILLO Sex: M : 1990 Age: 29yLocked/Released at 03/10/2020 00:45 by Bean Peace RN Name Value Range Interpretation Code Description Data Giovana rce(s) Supporting Document(s) ID Date Data Source [id number] 03/09/2020 05:46:00 PM EDT [facility] 1 Clinical Report - Physicians/Mid Levels [facility] Emergency Department [address] [place] [address] Phone #: ext- [phone] 03/09/2020 17:13 Patient: NICK TRUJILLO Sex: M : 1990 Age: 29y Time Seen: 18:33 03/09/2020. Historian- patient. Disposition decision: 00:11 03/10/2020.HISTORY OF PRESENT ILLNESS Chief Complaint: ABDOMINAL PAIN. (29 year old morbuidly obese patient with abdominal pain past few weeks. had a cholecystectomy a nd later umbilical hernia repair done also at [facility]. has an appointment with f/u [...] Levels [facility] Emergency Department [address] [place] [address] Phone #: ext- [phone] 03/09/2020 17:13 [id number] Sex[facility] M : 1990 Age: 29y Tonsillectomy. [...] roomair. Temp: 98.4 F. Pain level now: 3/10. Have been reviewed as normal.Appearance: Alert. No [...] sounds 3 Clinical Report - Physicians/Mid Levels [facility] Emergency Department [address] [place] [address] Phone #: ext [phone] 03/09/2020 17:13 Patient: NICK TRUJILLO Sex: M [...] Exam CT ABD //T// PELV W/ORAL ONLY [address] [place] [address] PHONE: [phone] FAX: [phone] Name .................. : GAVIOTA Madison Acct Number.................. : [id number] ROOM. ... .............. : TR-08 MR Number ................... : [id number] Stay type ............. : E/R Discharge Date......... ... : Admit Date ......... : 03/09/20 Admit Phys .................... : COLTONVAN Madison Date of ....... : 1990 Family Phys ................... : [employer] Phone .................. : [phone] Age ................................ : 29 Film# .................. .:[id number] Sex ................................. : M Unsigned transcriptions are [...] thickening. 4 Clinical Report - Physicians/Mid Levels [facility] Emergency Department [address] [place] [address] Phone #: ext- [phone] 03/09/2020 17:13 Patient: NICK TRUJILLO Sex: M [...] mL: 75 [address] [place] [address] PHONE: [phone] FAX: [phone] Name .................. : GAVIOTA Madison Acct Number.................. : [id number] ROOM. ................. : TR-08 MR Number ................... : [id number] Stay type ............. : E/R Discharge Date......... ... : Admit Date ......... : 03/09/20 Admit Phys .................... : TALIA Madison Date of ....... : 1990 Family Phys ................... : MIR HARD Phone .................. : [phone] Age ..................... ........... : 29 Film# .................. .:[id number] Sex ................................. : M Unsigned transcriptions are preliminary reports and do not represent a medical or legal document CT ABD Reason(s): Abdominal Pain Method of administration: Intravenous Electronically Reviewed and Signed By DCTNAME , SIGNDATE, [place] Transcribe Initials: DZ , Transcribe Date: 03/09/20 23:30, Dictation Date: <<REPDIST>> Page 2of 2ISOVUE 370 CONTRAST (PER ML): (KAVITA: 03/09/2020 20:43) ( MsgRcvd 03/09/2020 21:11) CanceledPREGNANCY STATUS: NA MALE ISOLATION n 5 Clinical Report - Physicians/Mid Levels [facility] Emergency Department [address] [place] [address] Phone #: ext- [phone] 03/09/2020 17:13 Patient: [...] Male GFR Interprentation 20-49 yrs >60 mL/min Vmowxs67-78 yrs >56 mL/min Normal 60-69 yrs >49 mL/min Normal 70-79yrs>42 mL/min Normal 80 and above >35 mL/min Normal Female GFRInterpretation 20-39 yrs >60 mL/min Normal 40-49 yrs >58 mL/minNormal 50-59 yrs >51 mL/min Normal 60-69 yrs >45 mL/min Nrvewj80-19 yrs >39 mL/min Normal 80 and above [...] 51.0) 6 Clinical Report - Physicians/Mid Levels [facility] Emergency Department [address] [place] [address] Phone #: ext- [phone] 03/09/2020 17:13 Patient: [...] has an appointment with his surgeon at [facility] next week, advised to keep the appointment, return if any symptoms. Patient/family counseled. Old medical records ordered. Disposition: Discharged home in good and improved cond ition (00:11 Mar 10 2020). Condition: stable. 7 Clinical Report - Physicians/Mid Levels [facility] Emergency Department [address] [place] [address] Phone #: ext- [phone] 03/09/2020 17:13 [id number] Sex: M : 1990 Age: 29yCLINICAL IMPRESSION [...] e(s) Supporting Document(s) ID Date Data Source [id number] 03/09/2020 07:33:00 PM EDT [facility] Name Value Range Interpretation Code Description Data Giovana e(s) Supporting Document(s) [facility] yellow NORMAL: Yellow [facility] CLARITY clear NORMAL: Clear [facility] Specific gravity of Urine by Test strip 1.010 1.001 - 1.030 [facility] pH 7 5 - 9 [facility] Glucose [Mass/volume] in Urine by Test strip NORM NORMAL: Negat [facility] Bilirubin.total [Presence] in Urine by Test strip NEG NORMAL: Negative [facility] Ketones [Presence] in Urine by Test strip NEG NORMAL: Negative [facility] Protein [Mass/volume] in Urine by Test strip NEG NORMAL: Negat [facility] Nitrite [Presence] in Urine by Test strip NEG NORMAL: Negative [facility] BLOOD NEG NORMAL: Negative [facility] Leukocyte esterase [Presence] in Urine by Test strip NEG MILAGROS L: Negative [facility] Urobilinogen [Mass/volume] in Urine by Test strip NOR less vanessa n 1.0 mg/dL [facility] MICROSCOPIC Not Indicate [facility] ID Date Data Source [id number] 03/09/2020 07:38:00 PM EDT [facility] Name Value Range Interpretation Code Description Data Giovana rce(s) Supporting Document(s) COMPREHENSIVE METABOLIC PANEL [facility] COMPREHENSIVE METABOLIC PANEL Sodium [Moles/volume] in Serum or Plasma 142 mEq/L 134 - 153 [facility] Potassium [Moles/volume] in Serum or Plasma 3.8 mEq/L 3.6 - 5.0 [facility] Chloride [Moles/volume] in Serum or Plasma 106 mEq/L 98 - 107 [facility] Carbon dioxide, total [Moles/volume] in Serum or Plasma 21 MEQ/L 22 - 30 L [facility] Glucose [Mass/volume] in Serum or Plasma 118 MG/DL 65 - 110 H [facility] BUN 11 MG/DL 7 - 21 [facility] Creatinine [Mass/volume] in Serum or Plasma 0.9 MG/DL 0.7 - 1.5 [facility] BUN/CREAT 12 8 - 27 [facility] al Protein [Mass/volume] in Serum or Plasma 7.8 G/DL 6.3 - 8.2 [facility] Albumin [Mass/volume] in Serum or Plasma 4.4 G/DL 3.9 - 5.0 [facility] Globulin [Mass/volume] in Serum by calculation 3.4 GM/DL 2.4 - 3.2 H [facility] A/G RATIO 1.3 0.8 - 2.0 [facility] Calcium [Mass/volume] in Serum or Plasma 9.2 MG/DL 8.4 - 10.2 [facility] Bilirubin.total [Mass/volume] in Serum or Plasma <0.7 MG/DL 0.2 - 1.3 [facility] Alkaline phosphatase [Enzymatic activity/volume] in Serum or Plasma 98 U/L 38 - 126 [facility] Aspartate aminotransferase [Enzymatic activity/volume] in Serum or Plasma 20 U/L 5 - 40 [facility] Alanine aminotransferase [Enzymatic activity/volume] in Seru m or Plasma 32 U/L 7 - 56 [facility] Anion gap 3 in Serum or Plasma 15.0 mmol/L 8.0 - 16.0 [facility] AGE [address] [facility] NON-AA GFR >60 mL/min [facility] AFR AMER GFR >60 mL/min [facility] Male GFR In terprentation 20-49 [...] >32 mL/min Normal ID Date Data Source [id number] 03/09/2020 07:35:00 PM EDT [facility] Name Value Range Interpretation Code Description Data Giovana rce(s) Supporting Document(s) Lipase [Enzymatic activity/volume] in Serum or Plasma 39 U/L 13 - 60 [facility] ID Date Data Source [id number] 03/09/2020 07:19:00 PM [facility] Name Value Range Interpretation Code Description Data Giovana rce(s) Supporting Document(s) Lactate [Moles/volume] in Serum or Plasma 3.4 MMOL/L 0.2 - 2.2 H [facility] ID Date Data Source [id number] 03/[facility]2020 [facility] Name Value Range Interpretation Code Description Data Giovana rce(s) Supporting Document(s) CBC W/AUTOMATED DIFF [facility] COMPLETE BLOOD COUNT Leukocytes [#/volume] in Blood by Automated count 11.1 10^3/uL 4.2 - 11.0 H [facility] Erythrocytes [#/volume] in Blood by Automated count 5.71 10^6/uL 4. 50 - 6.30 [facility] Hemoglobin [Mass/volume] in Blood 16.4 g/dL 14.0 - 16.0 H [facility] Hematocrit [Volume Fraction] of Blood by Automated count 51.4 % 4 1.0 - 51.0 H [facility] Erythrocyte mean corpuscular volume [Entitic volume] by Auto mated count 90.0 fL 80.0 - 94.0 [facility] Erythrocyte mean corpuscular hemoglobin [Entitic mass] by Automated count 28.7 pg 27.0 - 34.0 [facility] Erythrocyte mean corpuscular hemoglobin concentration [Mass/volume] by Automated count 31.9 g/dL 31.0 - 36.0 [facility] Erythrocyte distribution width [Ratio] by Automated count 14.1 % 11.5 - 14.8 [facility] Platelets [#/volume] in Blood by Automated count 209 10^3/uL 150 - 45 0 [facility] Platelet mean volume [Entitic volume] in Blood by Automated count 9.0 fL 7.4 - 10.4 [facility] Neutrophils/100 leukocytes in Blood by Automated count 71.7 % 37. 0 - 80.0 [facility] Lymphocytes/100 leukocytes in Blood by Manual count 16.6 % 25.0 - 40.0 L [facility] Monocytes/100 leukocytes in Blood by Automated count 5.9 % 3.0 - 8.0 [facility] Eosinophils/100 leukocytes in Blood by Automated count 5.1 % 0.0 - 7.0 [facility] Basophils/100 leukocytes in Blood by Automated count 0.3 % 0.0 - 2.0 [facility] %IG 0.4 % 0.0 - 0.0 [facility] %NRBC 0.0 % 0.0 - 0.0 [facility] al Neutrophils [#/volume] in Blood by Automated count 7.98 10^3/uL 2.00 - 6.90 H [facility] Lymphocytes [#/volume] in Blood by Automated count 1.85 10^3/uL 0.60 - 3.40 [facility] Monocytes [#/volume] in Blood by Automated count 0.66 10^3/uL 0.00 - 0.90 [facility] Eosinophils [#/volume] in Blood by Automated count 0.57 10^3/uL 0.00 - 0.70 [facility] Basophils [#/volume] in Blood by Automated count 0.03 10^3/uL 0.00 - 0.20 [facility] #IG 0.04 10^3/uL 0.00 - 0.10 [facility] #NRBC 0.00 10^3/uL 0.00 - 0.00 [facility] ospital MANUAL DIFF NOT INDICATED [facility] RBC MORPH NOT INDICATED [facility] spital ID Date Data Source [id number] 02/23/2020 11:36:00 AM EDT [facility] ([facility]) Name Value Range Interpretation Code Description Data Giovana rce(s) Supporting Document(s) CBC W/Automated Diff Laboratory test result [facility] ([facility]) Is patient fasting? N WBC 10.6 10^3/uL 4.2-11.0 [facility] ([facility]) Is patient fasting? N RBC 5.78 10^6/uL 4.50-6.30 [facility] ([facility]) Is patient fasting? N Hematocrit 51.1 % 41.0-51.0 Above high normal [facility] ([facility]) Is patient fasting? N Hemoglobin 16.3 g/dL 14.0-16.0 Above high normal [facility] Is patient fasting? N MCV 88.4 fL 80.0-94.0 [facility] ([facility]) Is patient fasting? N RDW 13.5 % 11.5-14.8 [facility] ([facility]) Is patient fasting? N MCH 28.2 pg 27.0-34.0 [facility] ([facility]) Is patient fasting? N MCHC 31.9 g/dL 31.0-36.0 [facility] ([facility]) Is patient fasting? N Platelets 262 10^3/uL 150-450 [facility] ([facility]) Is patient fasting? N Neut 65.2 % 37.0-80.0 [facility] ([facility]) Is patient fasting? N Lymph 18.6 % 25.0-40.0 Below low normal [facility] ( [facility]) Is patient fasting? N MPV 9.6 fL 7.4-10.4 [facility] ([facility]) Is patient fasting? N Eos 7.6 % 0.0-7.0 Above high normal [facility] ([facility]) Is patient fasting? N [place] 7.6 % 3.0-8.0 [facility] ([facility]) Is patient fasting? N Baso 0.5 % 0.0-2.0 [facility] ([facility]) Is patient fasting? N %NRBC 0.0 % 0.0-0.0 [facility] ([facility]) Is patient fasting? N %Ig 0.5 % 0.0-0.0 Above high normal [facility] ([facility]) Is patient fasting? N #Lymph 1.97 10^3/uL 0.60-3.40 [facility] ([facility]) Is patient fasting? N #Neut 6.92 10^3/uL 2.00-6.90 Above high normal [facility] ([facility]) Is patient fasting? N #[place]ajo 0.81 10^3/uL 0.00-0.90 [facility] ([facility]) Is patient fasting? N #Eos 0.81 10^3/uL 0.00-0.70 Above high normal [facility] ([facility]) Is patient fasting? N #Baso 0.05 10^3/uL 0.00-0.20 [facility] ([facility]) Is patient fasting? N #Ig 0.05 10^3/uL 0.00-0.10 [facility] ([facility]) Is patient fasting? N Manual Diff Laboratory test result [facility] ([facility]) Is patient fasting? N RBC Morph Laboratory test result [facility] ([facility]) Is patient fasting? N #NRBC 0.00 10^3/uL 0.00-0.00 [facility] ([facility]) Is patient fasting? N ID Date Data Source [id number] 02/23/2020 11:36:00 AM EDT [facility] ([facility]) Name Value Range Interpretation Code Description Data Giovana rce(s) Supporting Document(s) Hemoglobin A1c/Hemoglobin.total in Blood 4.9 % 4.4-6.1 [facility] ([facility]) Is patient fasting? N Topiramate [Mass/volume] in Serum or Plasma 7.3 ug/mL 2.0-25.0 [facility] ([facility]) Is patient fasting? N ID Date Data Source [id number] 02/23/2020 11:36:00 AM EDT [facility] ([facility]) Name Value Range Interpretation Code Description Data Giovana rce(s) Supporting Document(s) Comprehensive [employer] Laboratory test result [facility] ([facility]) Is patient fasting? N Chloride 103 meq/L 98-107 [facility] ([facility]) Is patient fasting? N Sodium 141 meq/L 134-153 [facility] ([facility]) Is patient fasting? N Potassium 3.8 meq/L 3.6-5.0 [facility] ([facility]) Is patient fasting? N Co2 25 meq/L 22-30 [facility] ([facility]) Is patient fasting? N BUN 8 mg/dL 7-21 [facility] ([facility]) Is patient fasting? N Glucose 86 mg/dL 65-110 [facility] ([facility]) Is patient fasting? N Creatinine 0.9 mg/dL 0.7-1.5 [facility] ([facility]) Is patient fasting? N Total Protein 7.8 g/dL 6.3-8.2 [facility] ([facility]) Is patient fasting? N BUN/Creat 9 8-27 [facility] ([facility]) Is patient fasting? N A/G Ratio 1.2 0.8-2.0 [facility] ([facility]) Is patient fasting? N Albumin 4.3 g/dL 3.9-5.0 [facility] ([facility]) Is patient fasting? N Globulin 3.5 GM/DL 2.4-3.2 Above high normal [facility] ([facility]) Is patient fasting? N Calcium 9.4 mg/dL 8.4-10.2 [facility] ([facility]) Is patient fasting? N Alkaline Phos 101 U/L 38-126 [facility] ([facility]) Is patient fasting? N Total Bili Laboratory test result 0.2-1.3 [facility] ([facility]) Is patient fasting? N Sgot/Ast 19 U/L 5-40 [facility] ([facility]) Is patient fasting? N SGPT/Alt 35 U/L 7-56 [facility] ([facility]) Is patient fasting? N Anion Gap 13.0 mmol/L 8.0-16.0 [facility] ([facility]) Is patient fasting? N Age 29 yrs [facility]) Is patient fasting? N Non-Aa GFR Laboratory test result [facility] ([facility]) Is patient fasting? N Afr Amer GFR Laboratory test result [facility] ([facility]) Is patient fasting? N ID Date Data Source [id number] 02/23/2020 11:36:00 AM EDT [facility] ([facility]) Name Value Range Interpretation Code Description Data Giovana rce(s) Supporting Document(s) Thyrotropin [Units/volume] in Serum or Plasma 1.92 uIU/mL 0.47-5.01 [facility] ([facility]) Is patient fasting? N Thyroxine (T4) free [Mass/volume] in Serum or Plasma 0.85 ng/dL 0.93-1.70 Below low normal [facility] ([facility]) Is patient fasting? N ID Date Data Source [id number] 02/23/2020 11:36:00 AM EDT [facility] ([facility]) Name Value Range Interpretation Code Description Data Giovana rce(s) Supporting Document(s) Free [place] Lt Chains,S 31.4 mg/L 3.3-19.4 Above high normal MEDENT ([facility]) Is patient fasting? N [place]/Lambda Ratio,S 1.03 NA 0.26-1.65 MEDE NT ([facility]) Is patient fasting? N Free Lambda Lt Chains,S 30.5 mg/L 5.7-26.3 Above high normal [facility]ENT ([facility]) Is patient fasting? N ID Date Data Source [id number] 02/29/2020 07:03:00 AM EDT [facility] Name Value Range Interpretation Code Description Data Giovana rce(s) Supporting Document(s) Topiramate [Mass/volume] in Serum or Plasma 7.3 ug/mL 2.0-25.0 [facility] This test was developed and its performa nce characteristicsdetermined by [facility]. It has not been cleared or approvedby the Food and Drug Administration. Detection Limit = 1.0 ID Date Data Source [id number] 02/26/2020 06:44:00 AM EDT [facility] Name Value Range Interpretation Code Description Data Giovana rce(s) Supporting Document(s) Immunoglobulin light chains.kappa.free [Mass/volume] in Seru m 31.4 mg/L 3.3-19.4 H [facility] Immunoglobulin light chains.lambda.free [Mass/volume] in Serum or Plasma 30.5 mg/L 5.7-26.3 H [facility] Immunoglobulin light chains.kappa.free/I mmunoglobulin light chains.lambda.free [Mass Ratio] in Serum 1.03 NA 0.26-1.65 [facility] ID Date Data Source [id number] 02/23/2020 11:36:00 AM EDT [facility] ([facility]) Name Value Range Interpretation Code Description Data Giovana rce(s) Supporting Document(s) Thyrotropin [Units/volume] in Serum or Plasma Laboratory test result [facility] ([facility]) Thyroxine (T4) free [Mass/volume] in Serum or Plasma Laboratory alok t result [facility]ENT ([facility]) Immunoglobulin light chains.kappa.free [Mass/volume] i n Serum Laboratory test result [facility]ENT ([facility]) ID Date Data Source [id number] 02/23/2020 04:35:00 PM EDT [facility] Name Value Range Interpretation Code Description Data Giovana rce(s) Supporting Document(s) Thyroxine (T4) free index in Serum or Plasma by calculation 0.85 NG/DL 0.93 - 1.70 L [facility] ID Date Data Source [id number] 02/23/2020 04:33:00 PM EDT [facility] Name Value Range Interpretation Code Description Data Giovana rce(s) Supporting Document(s) Thyrotropin [Units/volume] in Serum or Plasma by Detec tion limit <= 0.05 mIU/L 1.92 uIU/mL 0.47 - 5.01 [facility] ID Date Data Source [id number] 02/23/2020 04:19:00 PM EDT [facility] Name Value Range Interpretation Code Description Data Giovana rce(s) Supporting Document(s) CBC W/AUTOMATED DIFF [facility] COMPLETE BLOOD COUNT Leukocytes [#/volume] in Blood by Automated count 10.6 10^3/uL 4.2 - 11.0 [facility] Erythrocytes [#/volume] in Blood by Automated count 5.78 10^6/uL 4. 50 - 6.30 [facility] Hemoglobin [Mass/volume] in Blood 16.3 g/dL 14.0 - 16.0 H [facility] Hematocrit [Volume Fraction] of Blood by Automated count 51.1 % 4 1.0 - 51.0 H [facility] Erythrocyte mean corpuscular volume [Entitic volume] by Auto mated count 88.4 fL 80.0 - 94.0 [facility] Erythrocyte mean corpuscular hemoglobin [Entitic mass] by Automated count 28.2 pg 27.0 - 34.0 [facility] Erythrocyte mean corpuscular hemoglobin concentration [Mass/volume] by Automated count 31.9 g/dL 31.0 - 36.0 [facility] Erythrocyte distribution width [Ratio] by Automated count 13.5 % 11.5 - 14.8 [facility] Platelets [#/volume] in Blood by Automated count 262 10^3/uL 150 - 45 0 [facility] Platelet mean volume [Entitic volume] in Blood by Automated count 9.6 fL 7.4 - 10.4 [facility] Neutrophils/100 leukocytes in Blood by Automated count 65.2 % 37. 0 - 80.0 [facility] Lymphocytes/100 leukocytes in Blood by Manual count 18.6 % 25.0 - 40.0 L [facility] Monocytes/100 leukocytes in Blood by Automated count 7.6 % 3.0 - 8.0 [facility] Eosinophils/100 leukocytes in Blood by Automated count 7.6 % 0.0 - 7.0 H [facility] Basophils/100 leukocytes in Blood by Automated count 0.5 % 0.0 - 2.0 [facility] %IG 0.5 % 0.0 - 0.[address] [facility] %NRBC 0.0 % 0.0 - 0.0 [facility] al Neutrophils [#/volume] in Blood by Automated count 6.92 10^3/uL 2.00 - 6.90 H [facility] Lymphocytes [#/volume] in Blood by Automated count 1.97 10^3/uL 0.60 - 3.40 [facility] Monocytes [#/volume] in Blood by Automated count 0.81 10^3/uL 0.00 - 0.90 [facility] Eosinophils [#/volume] in Blood by Automated count 0.81 10^3/uL 0.00 - 0.70 H [facility] Basophils [#/volume] in Blood by Automated count 0.05 10^3/uL 0.00 - 0.20 [facility] #IG 0.05 10^3/uL 0.00 - 0.10 [facility] #NRBC 0.00 10^3/uL 0.00 - 0.00 [facility] MANUAL DIFF NOT INDICATED [facility] RBC MORPH NOT INDICATED [facility] spital ID Date Data Source [id number] 02/23/2020 04:14:00 PM EDT [facility] Name Value Range Interpretation Code Description Data Giovana rce(s) Supporting Document(s) COMPREHENSIVE METABOLIC PANEL [facility] COMPREHENSIVE METABOLIC PANEL Sodium [Moles/volume] in Serum or Plasma 141 mEq/L 134 - 153 [facility] Potassium [Moles/volume] in Serum or Plasma 3.8 mEq/L 3.6 - 5.0 [facility] Chloride [Moles/volume] in Serum or Plasma 103 mEq/L 98 - 107 [facility] Carbon dioxide, total [Moles/volume] in Serum or Plasma 25 MEQ/L 22 - 30 [facility] Glucose [Mass/volume] in Serum or Plasma 86 MG/DL 65 - 110 [facility] BUN 8 MG/DL 7 - 21 [facility] Creatinine [Mass/volume] in Serum or Plasma 0.9 MG/DL 0.7 - 1.5 [facility] BUN/CREAT 9 8 - 27 [facility] Protein [Mass/volume] in Serum or Plasma 7.8 G/DL 6.3 - 8.2 [facility] Albumin [Mass/volume] in Serum or Plasma 4.3 G/DL 3.9 - 5.0 [facility] Globulin [Mass/volume] in Serum by calculation 3.5 GM/DL 2.4 - 3.2 H [facility] A/G RATIO 1.2 0.8 - 2.0 [facility] Calcium [Mass/volume] in Serum or Plasma 9.4 MG/DL 8.4 - 10.2 [facility] Bilirubin.total [Mass/volume] in Serum or Plasma <0.7 MG/DL 0.2 - 1.3 [facility] Alkaline phosphatase [Enzymatic activity/volume] in Serum or Plasma 101 U/L 38 - 126 [facility] Aspartate aminotransferase [Enzymatic activity/volume] in Serum or Plasma 19 U/L 5 - 40 [facility] Alanine aminotransferase [Enzymatic activity/volume] in Seru m or Plasma 35 U/L 7 - 56 [facility] Anion gap 3 in Serum or Plasma 13.0 mmol/L 8.0 - 16.0 [facility] AGE [address] [facility] NON-AA GFR >60 mL/min [facility] ital AFR AMER GFR >60 mL/min [facility] spital Male GFR In terprentation 20-49 [...] >32 mL/min Normal ID Date Data Source [id number] 02/23/2020 04:05:00 PM EDT [facility] Name Value Range Interpretation Code Description Data Giovana rce(s) Supporting Document(s) Hemoglobin A1c/Hemoglobin.total in Blood 4.9 % 4.4 - 6.1 [facility] {A1]{HB] ID Date Data Source [id number] 02/10/2020 09:57:30 AM EDT [facility]FORMATION[facility] MRN Name Date of Age Gend*PT [id number] Nick Trujillo 1990 29 years M SDCPT Location Admission Date/Time Visit ID [facility]20 0851 --- --- EPI ID CSN Admitting Provider [id number] Robert Tamayo MD([id number]) [place] [address] OPERATIVE REPORT OPNAME: NICK TRUJILLO#: [id number] #: [id number] ADMISSION DATE: 02/09/2020DOB: 1990 SEX: M PT TYPE: H SURACCT #: [id number] CARE PHYSICIAN: ADITYA HELLERDATE OF OPERATION: 020PREOPERATIVE [...] reversal of general anesthesia.SANIA MENDOZA/QUEENIE Job #: [id number] DOC #: [id number] Name Value Range Interpretation Code Description Data Giovana rce(s) Supporting Document(s) ID Date Data Source [id number] 02/09/2020 02:36:21 PM EDT [facility] TINEO SPEC EXP DATE 02/12/2020PATI ENT ABO/Rh A NEGATIVEANTIBODY SCREEN NEGATIVETESTING SITE PERFORMED AT [address] [place] [address] [id number] BANK COMMENT BLOOD TYPE CONFIRMED. Name Value Range Interpretation Code Description Data Giovana rce(s) Supporting Document(s) TYPE AND SCREEN [facility] ID Date Data Source [id number] 02/08/2020 07:24:25 AM EDT [facility]FORMATIONPatient MRN Name Date of Age Gend*PT [id number] Nick Trujillo 1990 29 years M OPPT Location Admission Date/Time Visit ID Attending Provider --- --- --- Robert Tamayo MD([id number]) EPI ID CSN Admitting Provider [id number] ---OUTPATIENT / OBSERVATIONAL SURGICAL OR INVASIVE PROCEDUREName: [...] after 2 hours if needed. Historical Provider, MDtopiramate (TOPAMAX) 200 MG tablet Take 200 mg by mouth 2 (two) times a dayHistorical Provider, Umeclidinium [place] (INCRUSE ELLIPTA) 62.5 MCG/INH AEPB Inhale 1 [...] thyromegaly. No carotid bruits.MENTAL / NEUROLOGICAL STATUS: [id number]: Clear to auscultation. No wheezes, rhonchi or [...] parts of this document, were dictated using [email or web address] software. A reasonable attempt at proofreading has beenmade to minimize errors. Please call with any questions or corrections.* Name Value Range Interpretation Code Description Data Giovana rce(s) Supporting Document(s) ID Date Data Source [id number] 02/04/2020 12:14:57 PM EDT [facility] Name Value Range Interpretation Code Description Data Giovana rce(s) Supporting Document(s) EKG [facility] BTPWBt4sOgKRQzLue6AhMkUvEQWmEQ5jrff0T4P2dMQyK9IanWKfm7pzN9KtR4LrOLVlZSPXWY2LsAUs jb2 [file] lbxvFfVsq0KrZolaxkhOaf3rxusiwuWvK9h7g3CpNm 7il5f8f2C8OJmZkt6l3e0R94XzBrz4g5r1Co4Rtghl4y7l0Lj7UAvwjU9C7sSv/8yYqa3Bn7/a/Oji/P tvpy9lb8/P+itxZh94kKHFLkUQain63AK9/MpFsu6Oa334bqZhhaiDWaD5zWIVWn6NAQAQxj5EWuj7Rm QOMLx6TEqx2wtDGNCslo4nLJpkqpUfBXjHc58rUuv5 fZRPGvfsK2yJL/uxTExNE/uxTUyNE/uxTkzNE/vzD2dEAIzfBZcWSArqMFnTHMk/VmUxK3/aqYaK/Vgq pqaK/dgqpsaK/VgrpuaK/dgrpgaL/VgspiaL/dgspkaL/VgtpmaL/dgtpoaL/VgupqaL/dgupsaL/Vgv puaL/dgvpgaM/VgwpiaM/dgwpkaM/VgxpmaMjX/1na CFP+1UU8Z+wSlVR2L+kHrFv2R+8XqMo1T+IFyNp6E+rRaGb9A+xEjEb8W+6HaIr0mu64uW4/jv52qaS/ Tr6TypU/Jy36zqKMSt3DxxFELw38rzRoUg8OzzWxNz49omCpJm7MjxPzRs94nyN/Le9GuhB/Si13bhGO Jy1SeiEUAs37ggSwXq0SsnGkAi26uhFiKf+ZiaPvZj +5gaP/Zj/ZiaP/Zj/2peAOUxUMtgZOKdI2zzVvSfBRwaLmDzD6qlZxYuDGptMwFfE3llU/ZjDZmaQ/Zj D7naQ/5vD4whI/7fC7vlM/4bN0ezO/5dV8iuU/2kA4dpI/8aG4hnR/5jF7xuH/5qE7ydZ/9eY5xuS/5j D7naQ/3aO0ecG/3wU1uiA/9nJ2miF/5bB1rwI/5jD7 naQ/45D6E9kW88dIdQni/aoymbND/tLNs0v/d4ZdWlb7junNX61rBWtCrc9HciNrEtQ4rhE/2eB7inQ/ 0yS1vbO/8iE8juF/1qM2dkN/2sJ9mfT/7tM1hiG/2nK0zwH/2cV2fiI/3vA5ntU/5jF2uqY/3mW8jjZ/ 6nJ2opJ/6kY1tcS/0vF0mdY/6fF3cpW/5nE9qlX/5j D7naQ/5nW7xaS/0xR6hgW/0oO1grK/4uN9euX/0cA3bnX/3cV0vbP/2vP0goV/6wQ0olJ/7rZ3pvL/5j D7naQ/2sE2dqM/1lI8mvB/7cA1uzP/6lF3shM/8bR5kcF/5jF2prS/5jD/SpUum5EO/V3FDfBPnZkwTa XptgI4mxjxFrVM9EzgD7ZmyhCsCgiCr2a3R6nz4kuL 0en3yr10Q1KteTcQ0L14Z2JU5i19K1XupCwC9E29Z6GG4g30E2QjrQnJ3E90Q5SP1r18Y6QdcJyA4e43 R1LE1o09U2XnvJiT0s20F8MC1f20Z9VhfkxY7I6qA5QBMrK6H3D2wdwF3V5jW2FGByB9Z2BAOQpm/Q9g ouy2S0sYUyqC8o2HanJ3z9QeqP6p2W7fY4Q6Q4sw1W yA8sq2GqJ0td9Hgbimr4HumeAE0ZlbnS12BzuzI9qHCjbP9b0QpfR5q9CkdW1f5Q0luzi3H5CH7Q4JMC bc/H8bhjy9O5IX2O2IJEfe/D5dbcf9T0VO0S8ZBmfn/F5ppib0K5GU9K6jHvxa/L3vdbg7F0AE8D0wGz bc/F6ldry3O3ZYv9AKtkj0E1ZqOE2hzON7Z1dEMHXn nQHCGidJ6D6bgIsvLih+xFkknmyC6X+9a7h9y3mMSSKodwmI3N+0y7m0q4bJFicm3ZdfuFL4BxqofS4Q niCnPTD6VDIEHWeqBqLVmqShhSTBktPHfYcGJXjgqwJkEWxJPNROHddToIAlyHYdlYFIkTknylxlbiDe RBcUoexPWZ3EclbuLJh8DHaJYCvpZpMRteHrqYJ3ia VpsLxsGXp8dGBbYKvXBzDXUcgKxWHavKV8kHYFaWggpywskyAgpZbRinmLpS7S4vNhzPy1KBzKYF5yXa eKclYzxCWOuuQtoRn85Qym33zFSb9Njc5A2+MOISÉS/9cUjfj3ENwUow9f0hzTsz4+4MAN0DCuqtW7O8QzI [file] KBPeZzryNr0ecMM2LFFmBadKCo3Ko6IfuzG6chFyLwO8IwG7XfMuQS7P ID Date Data Source [id number] 02/04/2020 12:06:53 PM EDT [facility] NT INFORMATIONPatient MRN Name Date of Age Gend*PT [id number] Nick Trujillo 1990 29 years M OPPT Location Admission Date/Time Visit ID Attending Provider --- --- --- Robert Tamayo MD([id number]) EPI ID [facility] Admitting Provider [id number] ---OUTPATIENT / OBSERVATIONAL SURGICAL OR INVASIVE PROCEDUREName: [...] 2 (two) times a dayHistorical Provider, Umeclidinium [place] (INCRUSE ELLIPTA) 62.5 MCG/INH AEPB Inhale 1 puff dailyHistorical Provider, NITZAARoxetine (PAXIL) 30 MG tablet Take 30 mg by mouth every morning 02/04/20Historical Provider, Gregory HistoryTobacco Use Smoking status: Never Smoker Smokeless [...] thyromegaly. No carotid bruits.MENTAL / NEUROLOGICAL STATUS: [id number]: Clear to auscultation. No wheezes, rhonchi or [...] parts of this document, were dictated using [email or web address] speaking software. A reasonable attempt at proofreading has beenmade to minimize errors. Please call with any questions or corrections.* Name Value Range Interpretation Code Description Data Giovana rce(s) Supporting Document(s) ID Date Data Source [id number] 02/04/2020 05:52:41 PM EDT [facility] Name Value Range Interpretation Code Description Data Giovana e(s) Supporting Document(s) SODIUM 140 mmol/L (136-145) [facility] POTASSIUM 4.0 mmol/L (3.6-5.2) [facility] CHLORIDE 106 mmol/L (100-108) [facility] CO2 25 mmol/L (22-31) [facility] ANION GAP 9 mmol/L (7-16) [facility] UREA NITROGEN 13 mg/dL (7-24) [facility] CREATININE 1.08 mg/dL (0.80-1.30) [facility] BUN/CREAT RATIO 12.0 RATIO (10.0-20.0) [facility] GLUCOSE 100 mg/dL (70-99) H [facility] CALCIUM 9.2 mg/dL (8.4-10.2) [facility] GFR >60 ml/min/1.73m2 (>59) [facility] GFR ( AMER) >60 ml/min/1.73m2 (>59) [facility] GFR INTERPRETATION [facility] --NORMAL KIDNEY FUNCTION OR MILD DISEASE - GFR >OR= 60CHRONIC KIDNEY DISEASE - GFR 15 - 59RENAL FAILURE - GFR <15 Est. GFR calculation based on the MDRDstudy equation, which assumes a steadystate for creatinine. Est. GFR should notbe used for medication dosing. ID Date Data Source [id number] 02/04/2020 05:35:33 PM EDT [facility] Name Value Range Interpretation Code Description Data Giovana rce(s) Supporting Document(s) WBC 9.2 10*3/uL (4.1-11.0) [facility] RBC 5.75 10*6/uL (4.60-6.10) [facility] HGB 16.6 g/dL (13.5-18.0) [facility] HCT 51.0 % (41.0-53.0) [facility] MCV 88.8 fL (80.0-95.0) [facility] MCH 28.8 pg (27.0-32.0) [facility] MCHC 32.5 g/dL (32.0-36.0) [facility] RDW 14.8 % (10.5-14.5) H [facility] PLT 233 10*3/uL (150-450) [facility] MPV 8.4 fL (7.1-10.7) [facility] ID Date Data Source [id number] 02/04/2020 09:45:00 AM EDT [facility] Name Value Range Interpretation Code Description Data Giovana rce(s) Supporting Document(s) SARS coronavirus 2 RNA [facility] This lab was ordered by [facility] and reported by [facility]. ID Date Data Source [id number] 02/05/2020 07:07:45 PM EDT [facility] Name Value Range Interpretation Code Description Data Giovana rce(s) Supporting Document(s) SARS-COV-2 [facility] Not DetectedReference range: Not Detecte d Testing was performed using the hailey(R) SARS-CoV-2 test. This test was developed and its performance characteristics determined by [employer]. This test has not been FDA cleared [...] detected) result in this assay. Performed At: [address] [id number] Job Henson MD Ph:[phone] ID Date Data Source [id number] 01/31/2020 01:46:00 PM EDT [facility] A BDOMEN WO IV CONTRASTCLINICAL HISTORY: [...] rce(s) Supporting Document(s) ID Date Data Source [id number] 01/27/2020 11:08:00 AM EDT [facility] 1 OrderSheet [facility] Emergency Department [address] [place] [address] Phone #: ext- [phone] 01/27/2020 11:08 Patient: NICK TRUJILLO Sex: M : 1990 Age: 29yWEIGHT:181.4 kg (M) HEIGHT:71 inches (S) BMI:55.8ALLERGIES: Dilantin, Naproxsyn, Tylenol with codeinCHIEF COMPLAINT: abdominal painDIAGNOSIS: Abdominal pain, Hernia of abdominal cavityLAB ORDERSOrder Description Priority Entered Acknowledged InitialedCBC w Diff STAT 11:01/27/2020 11:15 Milagros Valdez MD; Bhanu RNCMP STAT 11:01/27/2020 11:15 Milagros Valdez MD; Bhanu RNLactic Acid STAT 11:01/27/2020 11:15 Milagros Valdez MD; Bhanu ESPINOZAUrinalysis (Clean STAT 11:14 01/27/2020 12:29 TerryCatch) Milagros Morse MD; Bhanu ESPINOZALipase STAT 11:14 [...] rce(s) Supporting Document(s) ID Date Data Source [id number] 01/27/2020 11:08:00 AM EDT [facility] 1 Medication Reconciliation Report [facility] Emergency Department [address] [place] [address] Phone #: ext- [phone] 01/27/2020 11:08 Patient: [...] ODT Oral, prn 2 Medication Reconciliation Report [facility] Emergency Department [address] [place] [address] Phone #: ext- [phone] 01/27/2020 11:08 Patient: NICK TRUJILLO Sex: M : 1990 Age: 29yThe source(s) of the original Home Medication information:Not obtained.The following Medications were given to the patient in the Emergency Department:None.The following Medications were prescribed to the patient:None. Name Value Range Interpretation Code Description Data Giovana rce(s) Supporting Document(s) ID Date Data Source [id number] 01/27/2020 11:08:00 AM EDT [facility] 1 Medication Administration Record [facility] Emergency Department [address] [place] [address] Phone #: ext- [phone] 01/27/2020 11:08 Patient: NICK TRUJILLO Sex: M : 1990 Age: 29yWeight: 181.4 kgHeight/Length: 71 inBMI: 55.8ALLERGIES: Dilantin, Naproxsyn, Tylenol with codeinDate/Time Medication Administered Medication Ordered Name Value Range Interpretation Code Description Data Giovana rce(s) Supporting Document(s) ID Date Data Source [id number] 01/27/2020 11:08:00 AM EDT [facility] 1 General Instructions [facility] Emergency Department [address] [place] [address] Phone #: ext- [phone] 01/27/2020 11:08 Patient: [...] instructions verbalized by patient. 2 General Instructions [facility] Emergency Department [address] [place] [address] Phone #: ext- [phone] 01/27/2020 11:08 Patient: [...] or constipation Chronic cough 3 General Instructions [facility] Emergency Department [address] [place] [address] Phone #: ext- [phone] 01/27/2020 11:08 Patient: [...] be pushed back in. 4 General Instructions [facility] Emergency Department [address] [place] [address] Phone #: [phone]- [phone] 01/27/2020 11:08 Patient: NICK TRUJILLO Sex: M [...] to the backCall 911 5 General Instructions [facility] Emergency Department [address] [place] [address] Phone #: ext- [phone] 01/27/2020 11:08 Patient: NICK TRUJILLO Sex: M : 1990 Age: 29yCall 911 if any of these occur: Severe pain, redness, or tenderness in the area near the hernia Pain worsens quickly and doesn't get better Inability to have a bowel movement or pass gas Fever of 100.4F (38C) or higher, or as directed by your healthcare provider [phone] [employer]. [address] [place] [address], [place] [address]. All rights reserved. This information is not intended as asubstitute for professional medical care. Always follow your healthcare professional's instructions. You have been given the following additional information: Hernia (Adult) No strenuous activity.(Electronically signed by Milagros Morse MD 01/28/2020 00:50) Name Value Range Interpretation Code Description Data Giovana rce(s) Supporting Document(s) ID Date Data Source [id number] 01/27/2020 11:08:00 AM EDT [facility] 1 Clinical Report - Nurses [facility] Emergency Department [address] [place] [address] Phone #: [phone]- [phone] 01/27/2020 11:08 Patient: NICK TRUJILLO Sex: M [...] or confirmed signs of infection present. --11:147 [facility]11:10 01/27/20. BP: 112/77. MAP: 88. HR: 95. RR: 20. O2 saturation: 98%. Temp: 99 F (oral). Pain levelnow: 03/06. --11:14 01/27/20 SuhaOctober, R.N.Weight: 181.4 kg measured. Height/Length: 71 inches Per Patient. BMI: 55.8. --11:10 01/27/20 Kisha, October,R.N.MedicationsAlbuterol Sulfate Inhalation, as needed. Incruse Ellipta [...] daily. Zofran ODT Oral, as needed. --11:01/27/20 Kishaoctober, Gaby. Keppra Oral. --11:01/27/20October, Gaby.AllergiesDilantin.Naproxsyn.Tylenol with codein. --11:01/27/20 KishaoctoberCatalino 2 Clinical Report - Nurses [facility] Emergency Department [address] [place] [address] Phone #: ext- [phone] 01/27/2020 11:08 Patient: NICK TRUJILLO Sex: M : 1990 Age: 29y PROBLEMS: Renal Colic. Asthma. Hematuria. Seizure. --11:01/27/20 SuhaOctober RAna. ADDITIONAL SURGERIES: Hernia Repair. Umbilical Hernia Repair. --11:13 01/27/20 Suha AlyshaGaby. History SOCIAL HX: Never smoker. [...] treatment room. --11:14 01/27/20 Alysha Borden R.N.PHYSICAL [id number]:15 01/27/20. To room via stretcher.GENERAL / NEURO / PSYCH: Alert. Oriented X 4. Appears in no acute distress. Appears in pain.RESPIRATORY: Respirations not labored. Breath sounds within normal limits. 3 Clinical Report - Nurses [facility] Emergency Department [address] [place] [address] Phone #: ext- [phone] 01/27/2020 11:08 Patient: [...] evaluation- ED physician and PA notified. --11:14 01/27/20SuhaOctober, R.N. 11:16 01/27/20. Call light placed in reach. --11:16 01/27/20 Phillip Drummond RN Checked patient name and birthdate. Blood samples drawn from the left antecubital space by tech. ([id number]). --11:52 01/27/20 Phillip Drummond RN 11:43 01/27/2020 Two (2) unsuccessful IV access attempts including the left forearm. --11:53 01/27/20 Phillip Drummond RN 11:56 01/27/2020 Site #1 started via IV in the right antecubital space with an 20g angiocath, with aseptic technique and good blood return; one attempt. Saline lock flushed with 10 mL saline. --11:56 01/27/20 SuhaOctober, R.N. Patient transported to CT by wheelchair with fish and wildlife technician. ([id number]). --12:01 01/27/20 Phillip Drummond RN Checked patient name and birthdate: patient confirmed. Clean catch urine collected; sample sent to lab for urinalys is. Specimen labeled in the presence of the patient ([id number]). Patient returned from CT by wheelchair with fish and wildlife technician. ([id number]). --12:29 01/27/20 Phillip Drummond RN 11:40 01/27/20. BP: 115/81. MAP: 92. HR: 91. O2 saturation: 100% on room air. --12:49 01/27/20 Phillip Drummond RN 12:46 01/27/20. BP: 104/49. MAP: 67. HR: 90. O2 saturation: 96% on room air. --12:50 01/27/20 Phillip Drummond RN 13:28 01/27/2020 Site #1 removed upon discharge. Pressure dressing applied. --13:28 01/27/20 Jennifer Russell R.N.DISPOSITION / DISCHARGE Condition at departure: unchanged. No learning barriers present. Discharge instructions provided and reviewed with the patient. Reviewed medication(s) (continue medications from home). Reviewed fever care instructions. Patient verbalized understanding. Written instructions provided in [place]. The patient was discharged home and unaccompanied at time of discharge. He left ambulatory and via private vehicle. Driving (unknown). --13:30 01/27/20 Jennifer Russell R.N. 13:28 01/27/20. BP: 106/46. MAP: 66. HR: 83. RR: 20. O2 saturation: 96% on room air. Temp: 98.2 F 4 Clinical Report - Nurses [facility] Emergency Department [address] [place] [address] Phone #: [phone] 01/27/2020 11:08 Patient: [...] rce(s) Supporting Document(s) ID Date Data Source [id number] 01/27/2020 11:08:00 AM EDT [facility] 1 Clinical Report - Physicians/Mid Levels [facility] [facility] Emergency Department [address] [place] [address] Phone #: ext- [phone] 01/27/2020 11:08 Patient: NICK TRUJILLO [facility]#: [id number] Sex: M : 1990 Age: 29y Arrived- [...] daily. 2 Clinical Report - Physicians/Mid Levels [facility] Emergency Department [address] [place] [address] Phone #: ext- [phone] 01/27/2020 11:08 Patient: NICK TRUJILLO Sex: M [...] EKG 3 Clinical Report - Physicians/Mid Levels [facility] Emergency Department [address] [place] [address] Phone #: ext- [phone] 01/27/2020 11:08 Patient: [...] mL/min 4 Clinical Report - Physicians/Mid Levels [facility] Emergency Department [address] [place] [address] Phone #: ext- [phone] 01/27/2020 11:08 Patient: NICK TRUJILLO Sex: M : 1990 Age: 29y Male GFR Interprentation 20-49 yrs >60 mL/min Bgtqfs99-60 yrs >56 mL/min Normal 60-69 yrs >49 mL/min Normal 70- 79yrs>42 mL/min Normal 80 and above >35 mL/min Normal Female GFRInterpretation 20-39 yrs >60 mL/min Normal 40-49 yrs >58 mL/minNormal 50-59 yrs >51 mL/min Normal 60-69 yrs >45 mL/min Riqkng70-64 yrs >39 mL/min Normal 80 and above >32 mL/min NormalLactic Acid: (KAVITA: 01/27/2020 11:27) ( UtgRcvd 01/27/2020 12:10) Final results Test Result Flag [...] CT ABD //T// PELVIS W/ IV ONLY [facility] [address] [place] [address] PHONE: [phone] FAX: [phone] Name .................. : JOSEPHLUTHER ROMERO Los Acct Number.................. : [id number] ROOM. ................. : TR-07 MR Number ................... : [id number] Stay type ............. : E/R Discharge Date......... ... : Admit Date ......... : 01/27/20 Admit Phys .................... : COONEYNORM Date of ....... : 1990 Family Phys ................... : MIR HARD Phone .................. : [phone] Age ................................ : 29 Film# .................. .:[id number] Sex ................................. : M Unsigned transcriptions are preliminary reports and do not represent a medical or legal document CT ABD Reason(s): Abdominal Pain 5 Clinical Report - Physicians/Mid Levels [facility] Emergency Department [address] [place] [address] Phone #: ext- [phone] 01/27/2020 11:08 Patient: [...] 370Method of administration: Intravenous [address] [place] [address] [place], [place] [address]TODHF: [phone] FAX: [phone] .................. : GAVIOTA Madison Acct Number.................. : [id number]. ................. : TR-07 MR Number ................... : [id number] type ............. : E/R Discharge Date......... ... :Admit Date ......... : 01/27/20 Admit Phys .................... : COONEYNORMDate of ....... : 1990 Family Phys ................... : HESTER HARDPhone .................. : [phone] Age ................................ : 29Film# .................. .:[id number] Sex ................................. : MUnsigned transcriptions are preliminary reports and do not represent a medical or legal document CT ABD Reason(s): Abdominal PainExamination dictated by CLYDE Gallego. Examination was reviewed with Cortez Rice MD, radiologist at the time of this dictation. Electronically Reviewed and Signed ByDCTNAME , SIGNDATE, GMM 6 Clinical Report - Physicians/Mid Levels [facility] Emergency Department [address] [place] [address] Phone #: ext- [phone] 01/27/2020 11:08 Patient: [...] MEDICATIONS: 7 Clinical Report - Physicians/Mid Levels [facility] Emergency Department [address] [place] [address] Phone #: ext- [phone] 01/27/2020 11:08 Patient: [...] rce(s) Supporting Document(s) ID Date Data Source [id number] 01/27/2020 01:49:00 [place] [address] PHONE: [phone] FAX: [phone] Name .................. : GAVIOTA Madison Acct Number.................. : [id number] ROOM. ................. : TR-07 MR Number ................... : [id number] Stay type ............. : E/R Discharge Date......... ... : Admit Date ......... : 09/16 Admit Phys .................... : COONEYNORM Date of ....... : 1990 Family Phys ................... : Amind HARD Phone .................. : [phone] Age ................................ : 29 Film# .................. .:[id number] Sex ................................. : M Unsigned transcriptions are preliminary reports and do not represent a medical or legal document CT ABD & PELVIS W/ IV ONLY [id number] COMPLETE:01/27/20 12:41 [facility] [address] Reason(s): Abdominal Pain CT SCAN OF THE [...] of administration: Intravenous Page 1 of 2 [facility] [address] [place] [address] PHONE: [phone] FAX: [phone] Name .................. : GAVIOTA ROMERO Los Acct Number.................. : [id number] ROOM. ................. : TR-07 MR Number ................... : [id number] Stay type ............. : E/R Discharge Date......... ... : Admit Date ......... : 01/27/20 Admit Phys .................... : COONEYNORM Date of ....... : 1990 Family Phys ................... : MIR HARD Phone .................. : [phone] Age ................................ : 29 Film# .................. .:[id number] Sex ................................. : M Unsigned transcriptions are preliminary reports and do not represent a medical or legal document CT ABD & PELVIS W/ IV ONLY [id number] COMPLETE:01/27/20 12:41 [facility] [address] Reason(s): Abdominal Pain Examination dictated by CLYDE Gallego. Examination was reviewed with Cortez Sinha MD, radiologist at the time of this dictation. Electronically Reviewed and Signed By CORTEZ SINHA MD , 01/27/20 13:49, [facility] Transcribe Initials: SSR, Transcribe Date: 01/27/20 12:55, Dictation Date: Copy for: 010 EMERGENCY SRV Copy for: EMERGENCY DEPT via maconm Copy for: 710 MED REC Page 2 of 2 Name Value Range Interpretation Code Description Data Giovana rce(s) Supporting Document(s) ID Date Data Source [id number] 01/27/2020 12:10:00 PM EDT [facility] ([facility]) Name Value Range Interpretation Code Description Data Giovana rce(s) Supporting Document(s) Urinalysis Laboratory test result [facility] ([facility]) SOURCE: Clean Catch Source Laboratory test result [facility] ([facility]) SOURCE: Clean Catch Color Laboratory test result [facility] ([facility]) SOURCE: Clean Catch Spec [place] 1.005 1.001-1.030 [facility] ([facility]) SOURCE: Clean Catch Clarity Laboratory test result [facility] ([facility]) SOURCE: Clean Catch Bilirubin Laboratory test result [facility] ([facility]) SOURCE: Clean Catch Glucose Laboratory test result [facility] ([facility]) SOURCE: Clean Catch pH 6.5 5-9 [facility] ([facility]) SOURCE: Clean Catch Protein Laboratory test result [facility] ([facility]) SOURCE: Clean Catch Ketone Laboratory test result [facility] ([facility]) SOURCE: Clean Catch Blood Laboratory test result [facility] ([facility]) SOURCE: Clean Catch Nitrite Laboratory test result [facility] ([facility]) SOURCE: Clean Catch Microscopic Laboratory test result M [facility] ([facility]) SOURCE: Clean Catch Leuk Est 25 [facility] ([facility]) SOURCE: Clean Catch Urobilinogen Laboratory test result [facility] ([facility]) SOURCE: Clean Catch WBC Laboratory test result [facility] ([facility]) SOURCE: Clean Catch Epithelial Laboratory test result [facility] ([facility]) SOURCE: Clean Catch ID Date Data Source [id number] 01/27/2020 12:53:00 PM EDT [facility] Name Value Range Interpretation Code Description Data Giovana rce(s) Supporting Document(s) [facility] SOURCE R [facility] al COLOR yellow NORMAL: Yellow [facility] CLARITY clear NORMAL: Clear [facility] Specific gravity of Urine by Test strip 1.005 1.001 - 1.030 [facility] pH 6.5 5 - 9 [facility] al Glucose [Mass/volume] in Urine by Test strip NORM NORMAL: Negat [facility] Bilirubin.total [Presence] in Urine by Test strip NEG NORMAL: Negative [facility] Ketones [Presence] in Urine by Test strip NEG NORMAL: Negative [facility] Protein [Mass/volume] in Urine by Test strip NEG NORMAL: Negat [facility] Nitrite [Presence] in Urine by Test strip NEG NORMAL: Negative [facility] BLOOD NEG NORMAL: Negative [facility] Leukocyte esterase [Presence] in Urine by Test strip 25 MILAGROS L: Negative [facility] Urobilinogen [Mass/volume] in Urine by Test strip NOR less vanessa n 1.0 mg/dL [facility] MICROSCOPIC See Below [facility] ital WBC 0 - 1 NORMAL: NONE SEEN [facility] EPITHELIAL FEW NORMAL: NONE SEEN [facility] ID Date Data Source [id number] 01/27/2020 11:27:00 AM EDT [facility] ([facility]) Name Value Range Interpretation Code Description Data Giovana rce(s) Supporting Document(s) Lipase [Enzymatic activity/volume] in Serum or Plasma 29 U/L 13-6 0 [facility] ([facility]) ID Date Data Source [id number] 01/27/2020 11:27:00 AM EDT [facility] ([facility]) Name Value Range Interpretation Code Description Data Giovana rce(s) Supporting Document(s) Comprehensive Metabo Laboratory test result [facility] ([facility]) COMPREHENSIVE METABOLIC PANEL Sodium 138 meq/L 134-153 [facility] ([facility]) Chloride 102 meq/L 98-107 [facility] ([facility]) Potassium 3.8 meq/L 3.6-5.0 [facility] ([facility]) Co2 26 meq/L 22-30 [facility] ([facility]) Glucose 102 mg/dL 65-110 [facility] ([facility]) Creatinine 1.0 mg/dL 0.7-1.5 [facility] ([facility]) BUN 10 mg/dL 7-21 [facility] ([facility]) BUN/Creat 10 8-27 [facility] ([facility]) Albumin 4.4 g/dL 3.9-5.0 [facility] ([facility]) Globulin 3.0 GM/DL 2.4-3.2 [facility] ([facility]) Total Protein 7.4 g/dL 6.3-8.2 [facility] ([facility]) Calcium 9.3 mg/dL 8.4-10.2 [facility] ([facility]) Total Bili Laboratory test result 0.2-1.3 [facility] ([facility]) A/G Ratio 1.5 0.8-2.0 [facility] ([facility]) Alkaline Phos 96 U/L 38-126 [facility] ([facility]) SGPT/Alt 27 U/L 7-56 [facility] ([facility]) Sgot/Ast 18 U/L 5-40 [facility] ([facility]) Anion Gap 10.0 mmol/L 8.0-16.0 [facility] ([facility]) Non-Aa GFR Laboratory test result [facility] ([facility]) Age 29 yrs [facility] ([facility]) Afr Amer GFR Laboratory test result [facility] ([facility]) Male GFR Interprentation 20-49 yrs >60 [...] >32 mL/min Normal ID Date Data Source [id number] 01/27/2020 11:27:00 AM EDT [facility] ([facility]) Name Value Range Interpretation Code Description Data Giovana rce(s) Supporting Document(s) CBC W/Automated Diff Laboratory test result [facility] ([facility]) COMPLETE BLOOD COUNT Hemoglobin 15.9 g/dL 14.0-16.0 [facility] ([facility]) RBC 5.61 10^6/uL 4.50-6.30 [facility] ([facility]) WBC 8.8 10^3/uL 4.2-11.0 [facility] ([facility]) Hematocrit 49.5 % 41.0-51.0 [facility] ([facility]) MCV 88.2 fL 80.0-94.0 [facility] ([facility]) MCH 28.3 pg 27.0-34.0 [facility] ([facility]) RDW 13.8 % 11.5-14.8 [facility] ([facility]) Platelets 197 10^3/uL 150-450 [facility] ([facility]) MPV 9.0 fL 7.4-10.4 [facility] ([facility]) MCHC 32.1 g/dL 31.0-36.0 [facility] ([facility]) Lymph 21.5 % 25.0-40.0 Below low normal [facility] ( [facility]) [place] 8.4 % 3.0-8.0 Above high normal [facility] ([facility]) Neut 66.9 % 37.0-80.0 [facility] ([facility]) Eos 2.7 % 0.0-7.0 [facility] ([facility]) Baso 0.2 % 0.0-2.0 [facility] ([facility]) %Ig 0.3 % 0.0-0.0 Above high normal [facility] ([facility]) #Lymph 1.90 10^3/uL 0.60-3.40 [facility] ([facility]) %NRBC 0.0 % 0.0-0.0 [facility] ([facility]) #Neut 5.91 10^3/uL 2.00-6.90 [facility] ([facility]) #Baso 0.02 10^3/uL 0.00-0.20 [facility] ([facility]) #Ig 0.03 10^3/uL 0.00-0.10 [facility] ([facility]) #Eos 0.24 10^3/uL 0.00-0.70 [facility] ([facility]) #[place] 0.74 10^3/uL 0.00-0.90 [facility] ([facility]) RBC Morph Laboratory test result [facility] ([facility]) #NRBC 0.00 10^3/uL 0.00-0.00 [facility] ([facility]) Manual Diff Laboratory test result [facility] ([facility]) ID Date Data Source [id number] 01/27/2020 11:27:00 AM EDT [facility] ([facility]) Name Value Range Interpretation Code Description Data Giovana rce(s) Supporting Document(s) Lactate [Mass/volume] in Serum or Plasma 1.8 mmol/L 0.2-2.2 [facility] ([facility]) ID Date Data Source [id number] 01/27/2020 12:26:00 PM EDT [facility] Name Value Range Interpretation Code Description Data Giovana rce(s) Supporting Document(s) Lipase [Enzymatic activity/volume] in Serum or Plasma 29 U/L 13 - 60 [facility] ID Date Data Source [id number] 01/27/2020 12:26:00 PM EDT [facility] Name Value Range Interpretation Code Description Data [facility] Supporting Document(s) COMPREHENSIVE METABOLIC PANEL [facility] COMPREHENSIVE METABOLIC PANEL Sodium [Moles/volume] in Serum or Plasma 138 mEq/L 134 - 153 [facility] Potassium [Moles/volume] in Serum or Plasma 3.8 mEq/L 3.6 - 5.0 [facility] Chloride [Moles/volume] in Serum or Plasma 102 mEq/L 98 - 107 [facility] Carbon dioxide, total [Moles/volume] in Serum or Plasma 26 MEQ/L 22 - 30 [facility] Glucose [Mass/volume] in Serum or Plasma 102 MG/DL 65 - 110 [facility] BUN 10 MG/DL 7 - 21 [facility] Creatinine [Mass/volume] in Serum or Plasma 1.0 MG/DL 0.7 - 1.5 [facility] BUN/CREAT 10 8 - 27 [facility] al Protein [Mass/volume] in Serum or Plasma 7.4 G/DL 6.3 - 8.2 [facility] Albumin [Mass/volume] in Serum or Plasma 4.4 G/DL 3.9 - 5.0 [facility] Globulin [Mass/volume] in Serum by calculation 3.0 GM/DL 2.4 - 3.2 [facility] A/G RATIO 1.5 0.8 - 2.0 [facility] Calcium [Mass/volume] in Serum or Plasma 9.3 MG/DL 8.4 - 10.2 [facility] Bilirubin.total [Mass/volume] in Serum or Plasma <0.7 MG/DL 0.2 - 1.3 [facility] Alkaline phosphatase [Enzymatic activity/volume] in Serum or Plasma 96 U/L 38 - 126 [facility] Aspartate aminotransferase [Enzymatic activity/volume] in Serum or Plasma 18 U/L 5 - 40 [facility] Alanine aminotransferase [Enzymatic activity/volume] in Seru m or Plasma 27 U/L 7 - 56 [facility] Anion gap 3 in Serum or Plasma 10.0 mmol/L 8.0 - 16.0 [facility] AGE [address] [facility] NON-AA GFR >60 mL/min [facility] AFR AMER GFR >60 mL/min [facility] Male GFR In terprentation 20-49 [...] >32 mL/min Normal ID Date Data Source [id number] 01/27/2020 12:13:00 PM EDT [facility] Name Value Range Interpretation Code Description Data Giovana rce(s) Supporting Document(s) CBC W/AUTOMATED DIFF [facility] COMPLETE BLOOD COUNT Leukocytes [#/volume] in Blood by Automated count 8.8 10^3/uL 4.2 - 1 1.0 [facility] Erythrocytes [#/volume] in Blood by Automated count 5.61 10^6/uL 4. 50 - 6.30 [facility] Hemoglobin [Mass/volume] in Blood 15.9 g/dL 14.0 - 16.0 [facility] Hematocrit [Volume Fraction] of Blood by Automated count 49.5 % 4 1.0 - 51.0 [facility] Erythrocyte mean corpuscular volume [Entitic volume] by Auto mated count 88.2 fL 80.0 - 94.0 [facility] Erythrocyte mean corpuscular hemoglobin [Entitic mass] by Automated count 28.3 pg 27.0 - 34.0 [facility] Erythrocyte mean corpuscular hemoglobin concentration [Mass/volume] by Automated count 32.1 g/dL 31.0 - 36.0 [facility] Erythrocyte distribution width [Ratio] by Automated count 13.8 % 11.5 - 14.8 [facility] Platelets [#/volume] in Blood by Automated count 197 10^3/uL 150 - 45 0 [facility] Platelet mean volume [Entitic volume] in Blood by Automated count 9.0 fL 7.4 - 10.4 [facility] Neutrophils/100 leukocytes in Blood by Automated count 66.9 % 37. 0 - 80.0 [facility] Lymphocytes/100 leukocytes in Blood by Manual count 21.5 % 25.0 - 40.0 L [facility] Monocytes/100 leukocytes in Blood by Automated count 8.4 % 3.0 - 8.0 H [facility] Eosinophils/100 leukocytes in Blood by Automated count 2.7 % 0.0 - 7.0 [facility] Basophils/100 leukocytes in Blood by Automated count 0.2 % 0.0 - 2.0 [facility] %IG 0.3 % 0.0 - 0.[address] [facility] %NRBC 0.0 % 0.0 - 0.0 [facility] al Neutrophils [#/volume] in Blood by Automated count 5.91 10^3/uL 2.00 - 6.90 [facility] Lymphocytes [#/volume] in Blood by Automated count 1.90 10^3/uL 0.60 - 3.40 [facility] Monocytes [#/volume] in Blood by Automated count 0.74 10^3/uL 0.00 - 0.90 [facility] Eosinophils [#/volume] in Blood by Automated count 0.24 10^3/uL 0.00 - 0.70 [facility] Basophils [#/volume] in Blood by Automated count 0.02 10^3/uL 0.00 - 0.20 [facility] #IG 0.03 10^3/uL 0.00 - 0.10 [facility] ospital #NRBC 0.00 10^3/uL 0.00 - 0.00 [facility] ospital MANUAL DIFF NOT INDICATED [facility] RBC MORPH NOT INDICATED [facility] spital ID Date Data Source [id number] 01/27/2020 12:10:00 PM EDT [facility] Name Value Range Interpretation Code Description Data Giovana rce(s) Supporting Document(s) Lactate [Moles/volume] in Serum or Plasma 1.8 MMOL/L 0.2 - 2.2 [facility] ID Date Data Source [id number] 01/17/2020 02:07:00 PM EDT [facility] [address] [facility] [place] [address] PHONE: [phone] FAX: [phone] Name .................. : GAVIOTA Madison Acct Number.................. : [id number] ROOM. ................. : MR Number ................... : [id number] Stay type ............. : O/P Discharge Date......... ... : 01/17/20 Admit Date ......... : 01/17/20 Admit Phys .................... : [employer] Date of ....... : 1990 Family Phys ................... : Amind HARD Phone .................. : [phone] Age ................................ : 29 Film# .................. .:[id number] Sex ................................. : M Unsigned transcriptions are preliminary reports and do not represent a medical or legal document RIBS SYLVIE W/[place] [id number] COMPLETE:01/17/20 10:15 BEM [id number] (REASON FOR CHEST: CHEST PAIN LEFT RIB [...] Date: 01/17/20 11:35, Dictation Date: Copy for: [address] [place] [address] REC Page 1 of 1 Name Value Range Interpretation Code Description Data Giovana rce(s) Supporting Document(s) ID Date Data Source [id number] 01/17/2020 01:27:00 [place] [address] PHONE: [phone] FAX: [phone] Name .................. : GAVIOTA Madison Acct Number.................. : [id number] ROOM. ................. : TR-02 Number ................... : [id number] Stay type ............. : E/R Discharge Date......... ... : 01/13/20 Admit Date ......... : 01/13/20 Admit Phys .................... : COONEYNORM Date of ....... : 1990 Family Phys ................... : MIR HARD Phone .................. : [phone] Age ................................ : 29 Film# .................. .:[id number] Sex ................................. : M Unsigned transcriptions are preliminary reports and do not represent a medical or legal document CT HEAD W/O CONTRAST [id number] COMPLETE:01/13/20 17:10 ALVAREZ [address] Reason(s): Headache CT OF THE HEAD WITHOUT [...] By Mami Werner MD , 01/17/20 13:27, KGKrysta Transcribe Initials: GUCCI , Transcribe Date: 01/13/20 21:55, Dictation Date: Copy for: EMERGENCY DEPT via modem Copy for: 710 MED REC DISCHARGED Page 1 of 1 Name Value Range Interpretation Code Description Data Giovana rce(s) Supporting Document(s) ID Date Data Source [id number] 01/17/2020 01:26:00 PM EDT [facility] [address] [place] [address] PHONE: [phone] FAX: [phone] Name .................. : GAVIOTA Madison Acct Number.................. : [id number] ROOM. ................. : TR MR Number ................... : [id number] Stay type ............. : E/R Discharge Date......... ... : 01/13/20 Admit Date ......... : 01/13/20 Admit Phys .................... : COONEYNORM Date of ....... : 1990 Family Phys ................... : HESTER HARD Phone .................. : [phone] Age ................................ : 29 Film# .................. .:[id number] Sex ................................. : M Unsigned transcriptions are preliminary reports and do not represent a medical or legal document CHEST PORTABLE [id number] COMPLETE:01/13/20 14:18 ARS 55963 Reason(s): Shortness of Breath PORTABLE CHEST X-RAY: FINDINGS: The cardiac and mediastinal silhouettes appear normal and the lungs are clear. The bones and soft tissues are normal. The upper abdomen is unremarkable. IMPRESSION: No acute disease identifiable. Electronically Reviewed and Signed By Mami Werner MD , 01/17/20 13:26, KGKrysta Transcribe Initials: GUCCI , Transcribe Date: 01/13/20 19:46, Dictation Date: Copy for: EMERGENCY DEPT via modem Copy for: 710 MED REC DISCHARGED Page 1 of 1 Name Value Range Interpretation Code Description Data Giovana rce(s) Supporting Document(s) ID Date Data Source [id number] 01/13/2020 01:42:00 PM EDT [facility] 1 OrderSheet [facility] Emergency Department [address] [place] [address] Phone #: ext- [phone] 01/13/2020 13:41 Patient: NICK TRUJILLO Sex: M : 1990 Age: 29yWEIGHT:177.8 kg HEIGHT:71 inches BMI:54.7ALLERGIES: Dilantin, Naproxsyn, Tylenol with codeinCHIEF COMPLAINT: seizureDIAGNOSIS: SeizureLAB ORDERSOrder Description Priority Entered Acknowledged InitialedCBC w Diff STAT 13:56 01/13/2020 14:01 Mini Mcfarland Norma MD; Lacho Zaragoza.NShayCMP STAT 13:56 01/13/2020 14:01 Mini Mcfarland Norma MD; Lacho Zaragoza.TheeLipase STAT 13:56 01/13/2020 14:01 Mini Mcfarland Norma MD; Lacho BaeLactic Acid STAT 13:56 01/13/2020 14:01 Mini Mcfarland Norma MD; Lacho Zaragoza.NShayUrinalysis (Clean STAT 13:56 01/13/2020 14:01 Bruna,Catch) Milagros Morse MD; Lacho R.NShay-- (topamax level) STAT 14:38 01/13/2020 14:39 Bruna,(Blood) Milagros Morse MD; Lacho Zaragoza.NShayDIAGNOSTIC STUDY ORDERSOrder Description Priority Entered Acknowledged InitialedChes Portable 1 STAT 13:56 01/13/2020 14:01 Bruna,View Milagros Morse MD; Lacho MartinezNShay(Oxygen?(No)) NOTES: s/p seizure. r/o aspiration Reason for Study: Shortness of BreathCT Head W/O Cont STAT 15:46 01/13/2020 15:47 Bruna,(Oxygen?(No)) Milagros Morse MD; Lacho Bae NOTES: seizure Reason for Study: HeadacheMEDICATION/IV/DRIP/FLUID ORDERSOrder Description Priority Entered Acknowledged InitialedGENERAL ORDERSOrder Description Priority Entered Acknowledged Initialed 2 OrderSheet [facility] Emergency Department [address] [place] [address] Phone #: ext- [phone] 01/13/2020 13:41 Patient: NICK TRUJILLO Sex: M : 1990 Age: 29y[Electronically signed by Lacho Mcfarland R.N. (20:08 01/13/2020)][Electronically signed by Milagros Morse MD (22:42 01/15/2020)][Electronically locked by Lacho Mcfarland R.N. (20:08 01/13/2020)] Name Value Range Interpretation Code Description Data Giovana rce(s) Supporting Document(s) ID Date Data Source [id number] 01/13/2020 01:42:00 PM EDT [facility] 1 Medication Reconciliation Report [facility] Emergency Department [address] [place] [address] Phone #: ext- [phone] 01/13/2020 13:41 Patient: [...] ODT Oral, prn 2 Medication Reconciliation Report [facility] Emergency Department [address] [place] [address] Phone #: ext- [phone] 01/13/2020 13:41 Patient: NICK TRUJILLO Sex: M : 1990 Age: 29yThe source(s) of the original Home Medication information:Not obtained.The following Medications were given to the patient in the Emergency Department:None.The following Medications were prescribed to the patient:None. Name Value Range Interpretation Code Description Data Giovana rce(s) Supporting Document(s) ID Date Data Source [id number] 01/13/2020 01:42:00 PM EDT [facility] 1 Medication Administration Record [facility] Emergency Department [address] [place] [address] Phone #: ext- [phone] 01/13/2020 13:41 Patient: NICK TRUJILLO Sex: M : 1990 Age: 29yWeight: 177.8 kgHeight/Length: 71 inBMI: 54.7ALLERGIES: Dilantin, Naproxsyn, Tylenol with codeinDate/Time Medication Administered Medication Ordered Name Value Range Interpretation Code Description Data Giovana rce(s) Supporting Document(s) ID Date Data Source [id number] 01/13/2020 01:42:00 PM EDT [facility] 1 General Instructions [facility] Emergency Department [address] [place] [address] Phone #: ext- [phone] 01/13/2020 13:41 Patient: [...] instructions verbalized by patient. 2 General Instructions [facility] Emergency Department [address] [place] [address] Phone #: ext- [phone] 01/13/2020 13:41 Patient: NICK TRUJILLO Sex: M : 1990 Age: 29yNo driving or operating machinery.(Electronically signed by Milagros Morse MD 01/15/2020 22:42) Name Value Range Interpretation Code Description Data Giovana rce(s) Supporting Document(s) ID Date Data Source [id number] 01/13/2020 01:42:00 PM EDT [facility] 1 Clinical Report - Nurses [facility] Emergency Department [address] [place] [address] Phone #: ext- [phone] 01/13/2020 13:41 Patient: NICK TRUJILLO Sex: M [...] 24 Hour 50 mg), daily. --13:48 01/13/20 Eendina Banda R.N. Singulair Oral 10 mg, daily. [...] Banda R.N.PROBLEMS:Hematuria.Asthma. 2 Clinical Report - Nurses [facility] Emergency Department [address] [place] [address] Phone #: ext- [phone] 01/13/2020 13:41 Patient: [...] treatment room. --13:52 01/13/20 Enedina Banda R.N.PHYSICAL [id number] 01/13/20. To room via stretcher.GENERAL / NEURO / PSYCH: Alert. Oriented X 4. Appears in no acute distress. No apparent seizureactivity. Speech within normal limits. Patient appears well-nourished. 3 Clinical Report - Nurses [facility] Emergency Department [address] [place] [address] Phone #: ext- [phone] 01/13/2020 13:41 Patient: [...] of bed on. --15:44 01/13/20 Lacho Mcfarland R.N. 16:22 01/13/20. Patient transported to [place] by wheelchair with fish and wildlife technician. --16:22 01/13/20 Lacho Mcfarland R.N. 16:30 01/13/20. Patient returned from CT by stretcher with fish and wildlife technician. --16:30 01/13/20 Lacho Mcfarland R.N. 17:01 [...] or numbness. 4 Clinical Report - Nurses [facility] Emergency Department [address] [place] [address] Phone #: ext- [phone] 01/13/2020 13:41 Patient: [...] Patient verbalized understanding. Written instructions provided in Palestinian. The patient was discharged by the physician. [...] rce(s) Supporting Document(s) ID Date Data Source [id number] 01/13/2020 01:42:00 PM EDT [facility] 1 Clinical Report - Physicians/Mid Levels [facility] Emergency Department [address] [place] [address] Phone #: ext- [phone] 01/13/2020 13:41 Patient: [...] daily. 2 Clinical Report - Physicians/Mid Levels [facility] Emergency Department [address] [place] [address] Phone #: ext- [phone] 01/13/2020 13:41 Patient: [...] RR: 18. O2 saturation: 98%. Temp: 97.6 Radha Nassar reviewed and appear to be correct. Hypertensive. [...] Progress 3 Clinical Report - Physicians/Mid Levels [facility] Emergency Department [address] [place] [address] Phone #: ext- [phone] 01/13/2020 13:41 Patient: NICK TRUJILLO Sex: M : 1990 Age: 29yCT HEAD W/O CONTRASTReason(s): HeadacheTRANSPORTATION: S IV? O2? Oxygen?(No) Room: ED CMTS: seizureCBC w Diff: (KAVITA: 01/13/2020 14:13) ( [facility] 01/13/[facility] 14:28) Final results Test Result Flag [...] 56) 4 Clinical Report - Physicians/Mid Levels [facility] Emergency Department [address] [place] [address] Phone #: ext- [phone] 01/13/2020 13:41 Patient: [...] mL/min Normal Lipase: (KAVITA: 01/13/2020 14:13) ( [facility] [place] 01/13/2020 14:43) Final results Test Result Flag Units (Reference) LIPASE 32 U/L (13 - 60) Lactic Acid: (KAVITA: 01/13/2020 14:13) ( [facility] 01/13/2020 14:35) Final results Test Result Flag Units (Reference) LACTIC ACID 1.9 MMOL/L (0.2 - 2.2) Urinalysis: (KAVITA: 01/13/2020 13:56) ( [facility] 01/13/2020 14:06) Final results Test Result Flag [...] Portable 1 View: (KAVITA: 01/13/2020 13:56) ( [facility] [place] [place] 01/13/2020 14:19) In Progress CHEST PORTABLE Reason(s): [...] any 5 Clinical Report - Physicians/Mid Levels [facility] Emergency Department [address] [place] [address] Phone #: ext- [phone] 01/13/2020 13:41 Patient: [...] patient. 6 Clinical Report - Physicians/Mid Levels [facility] Emergency Department [address] [place] [address] Phone #: [phone]- [phone] 01/13/2020 13:41 Patient: NICK TRUJILLO Sex: M : 1990 Age: 29y(Electronically signed by Milagros Morse MD 01/15/2020 22:42) Name Value Range Interpretation Code Description Data Giovana rce(s) Supporting Document(s) ID Date Data Source [id number] 12/31/2019 01:56:00 [place] [address] OPERATIVE SUMMARYNAME: GAVIOTA Madison DATE OF : 1990ATTENDING PHYS: SALVADOR KAMARA MD DATE: 12/31/19 MR#: [id number] OF PROCEDURE: 12/31/2019PRE-OPERATIVE DIAGNOSIS:Microscopic hematuria.POST-OPERATIVE DIAGNOSIS:Microscopic hematuria.PROCEDURE PERFORMED:Flexible cy stoscopy.ATTENDING SURGEON: Dr. Salvador Kamara.PHYSICIAN CONCRETE BLOCK MAKER: CLYDE Farias.ANESTHESIA: Local.ESTIMATED BLOOD LOSS: Minimal.COMPLICATIONS: None.DRAINS: [...] urethra. No dense or long strictures [address] [place] [address] OPERATIVE SUMMARYNAME: GAVIOTA Madison DATE OF : 1990ATTENDING PHYS: SALVADOR KAMARA MD DATE: 12/31/19 MR#: [id number] noted. The rest of the cystoscopy was [...] rce(s) Supporting Document(s) ID Date Data Source [id number] 01/13/2020 02:58:00 PM EDT [facility] ([facility]) Name Value Range Interpretation Code Description Data Giovana rce(s) Supporting Document(s) Topiramate [Mass/volume] in Serum or Plasma 8.7 ug/mL 2.0-25.0 [facility] ([facility]) This test was developed and its performa nce characteristics determined by [facility]. It has not been cleared or approved by the Food and Drug Administration. Detection Limit = 1.0 ID Date Data Source [id number] 01/17/2020 08:03:00 PM EDT [facility] Name Value Range Interpretation Code Description Data Giovana rce(s) Supporting Document(s) Topiramate [Mass/volume] in Serum or Plasma 8.7 ug/mL 2.0-25.0 [facility] This test was developed and its performa nce characteristicsdetermined by [facility]. It has not been cleared or approvedby the Food and Drug Administration. Detection Limit = 1.0 ID Date Data Source [id number] 01/13/2020 02:13:00 PM EDT [facility] ([facility]) Name Value Range Interpretation Code Description Data Giovana rce(s) Supporting Document(s) CBC W/Automated Diff Laboratory test result [facility] ([facility]) COMPLETE BLOOD COUNT WBC 8.6 10^3/uL 4.2-11.0 [facility] ([facility]) RBC 5.69 10^6/uL 4.50-6.30 [facility] ([facility]) Hemoglobin 16.2 g/dL 14.0-16.0 Above high normal [facility] ([facility]) Hematocrit 50.7 % 41.0-51.0 [facility] ([facility]) MCH 28.5 pg 27.0-34.0 [facility] ([facility]) MCV 89.1 fL 80.0-94.0 [facility] ([facility]) RDW 13.7 % 11.5-14.8 [facility] ([facility]) MCHC 32.0 g/dL 31.0-36.0 [facility] ([facility]) Platelets 212 10^3/uL 150-450 [facility] ([facility]) MPV 9.0 fL 7.4-10.4 [facility] ([facility]) Neut 68.4 % 37.0-80.0 [facility] ([facility]) Lymph 20.7 % 25.0-40.0 Below low normal [facility] ( [facility]) [place] 7.7 % 3.0-8.0 [facility] ([facility]) Baso 0.1 % 0.0-2.0 [facility] ([facility]) Eos 2.9 % 0.0-7.0 [facility] ([facility]) %Ig 0.2 % 0.0-0.0 Above high normal [facility] ([facility]) #Neut 5.84 10^3/uL 2.00-6.90 [facility] ([facility]) %NRBC 0.0 % 0.0-0.0 [facility] ([facility]) #Lymph 1.77 10^3/uL 0.60-3.40 [facility] ([facility]) #Baso 0.01 10^3/uL 0.00-0.20 [facility] ([facility]) #[place] 0.66 10^3/uL 0.00-0.90 [facility] ([facility]) #Eos 0.25 10^3/uL 0.00-0.70 [facility] ([facility]) #Ig 0.02 10^3/uL 0.00-0.10 [facility] ([facility]) RBC Morph Laboratory test result [facility] ([facility]) #NRBC 0.00 10^3/uL 0.00-0.00 [facility] ([facility]) Manual Diff Laboratory test result [facility] ([facility]) ID Date Data Source [id number] 01/13/2020 02:13:00 PM EDT [facility] ([facility]) Name Value Range Interpretation Code Description Data Giovana rce(s) Supporting Document(s) Lipase [Enzymatic activity/volume] in Serum or Plasma 32 U/L 13-6 0 [facility] ([facility]) Lactate [Mass/volume] in Serum or Plasma 1.9 mmol/L 0.2-2.2 [facility] ([facility]) ID Date Data Source [id number] 01/13/2020 02:13:00 PM EDT [facility] ([facility]) Name Value Range Interpretation Code Description Data Giovana rce(s) Supporting Document(s) Comprehensive Metabo Laboratory test result [facility] ([facility]) COMPREHENSIVE METABOLIC PANEL Sodium 143 meq/L 134-153 [facility] ([facility]) Co2 24 meq/L 22-30 [facility] ([facility]) Chloride 108 meq/L 98-107 Above high normal [facility] ([facility]) Potassium 4.0 meq/L 3.6-5.0 [facility] ([facility]) Creatinine 0.9 mg/dL 0.7-1.5 [facility] ([facility]) BUN 12 mg/dL 7-21 [facility] ([facility]) Glucose 141 mg/dL 65-110 Above high normal [facility] ([facility]) Total Protein 7.6 g/dL 6.3-8.2 [facility] ([facility]) Albumin 4.4 g/dL 3.9-5.0 [facility] ([facility]) BUN/Creat 13 8-27 [facility] ([facility]) Globulin 3.2 GM/DL 2.4-3.2 [facility] ([facility]) Calcium 9.1 mg/dL 8.4-10.2 [facility] ([facility]) A/G Ratio 1.4 0.8-2.0 [facility] ([facility]) Total Bili Laboratory test result 0.2-1.3 [facility] ([facility]) Alkaline Phos 96 U/L 38-126 [facility] ([facility]) Sgot/Ast 20 U/L 5-40 [facility] ([facility]) Age 29 yrs [facility] ([facility]) Anion Gap 11.0 mmol/L 8.0-16.0 [facility] ([facility]) SGPT/Alt 29 U/L 7-56 [facility] ([facility]) Non-Aa GFR Laboratory test result [facility] ([facility]) Afr Amer GFR Laboratory test result [facility] ([facility]) Male GFR Interprentation 20-49 yrs >60 [...] >32 mL/min Normal ID Date Data Source [id number] 01/13/2020 02:56:[address] [facility] Name Value Range Interpretation Code Description Data Giovana rce(s) Supporting Document(s) COMPREHENSIVE METABOLIC PANEL [facility] COMPREHENSIVE METABOLIC PANEL Sodium [Moles/volume] in Serum or Plasma 143 mEq/L 134 - 153 [facility] Potassium [Moles/volume] in Serum or Plasma 4.0 mEq/L 3.6 - 5.0 [facility] Chloride [Moles/volume] in Serum or Plasma 108 mEq/L 98 - 107 H [facility] Carbon dioxide, total [Moles/volume] in Serum or Plasma 24 MEQ/L 22 - 30 [facility] Glucose [Mass/volume] in Serum or Plasma 141 MG/DL 65 - 110 H [facility] BUN 12 MG/DL 7 - 21 [facility] al Creatinine [Mass/volume] in Serum or Plasma 0.9 MG/DL 0.7 - 1.5 [facility] BUN/CREAT 13 8 - 27 [facility] Protein [Mass/volume] in Serum or Plasma 7.6 G/DL 6.3 - 8.2 [facility] Albumin [Mass/volume] in Serum or Plasma 4.4 G/DL 3.9 - 5.0 [facility] Globulin [Mass/volume] in Serum by calculation 3.2 GM/DL 2.4 - 3.2 [facility] A/G RATIO 1.4 0.8 - 2.0 [facility] Calcium [Mass/volume] in Serum or Plasma 9.1 MG/DL 8.4 - 10.2 [facility] Bilirubin.total [Mass/volume] in Serum or Plasma <0.7 MG/DL 0.2 - 1.3 [facility] Alkaline phosphatase [Enzymatic activity/volume] in Serum or Plasma 96 U/L 38 - 126 [facility] Aspartate aminotransferase [Enzymatic activity/volume] in Serum or Plasma 20 U/L 5 - 40 [facility] Alanine aminotransferase [Enzymatic activity/volume] in Seru m or Plasma 29 U/L 7 - 56 [facility] Anion gap 3 in Serum or Plasma 11.0 mmol/L 8.0 - 16.0 [facility] AGE 29 yrs [facility] NON-AA GFR >60 mL/min [facility] ital AFR AMER GFR >60 mL/min [facility] Male GFR In terprentation 20-49 [...] >32 mL/min Normal ID Date Data Source [id number] 01/13/2020 02:43:00 PM EDT [facility] Name Value Range Interpretation Code Description Data Giovana rce(s) Supporting Document(s) Lipase [Enzymatic activity/volume] in Serum or Plasma 32 U/L 13 - 60 [facility] ID Date Data Source [id number] 01/13/2020 02:35:00 PM EDT [facility] Name Value Range Interpretation Code Description Data Giovana rce(s) Supporting Document(s) Lactate [Moles/volume] in Serum or Plasma 1.9 MMOL/L 0.2 - 2.2 [facility] ID Date Data Source [id number] 01/13/2020 02:27:00 PM EDT [facility] Name Value Range Interpretation Code Description Data Giovana rce(s) Supporting Document(s) CBC W/AUTOMATED DIFF [facility] COMPLETE BLOOD COUNT Leukocytes [#/volume] in Blood by Automated count 8.6 10^3/uL 4.2 - 1 1.0 [facility] Erythrocytes [#/volume] in Blood by Automated count 5.69 10^6/uL 4. 50 - 6.30 [facility] Hemoglobin [Mass/volume] in Blood 16.2 g/dL 14.0 - 16.0 H [facility] Hematocrit [Volume Fraction] of Blood by Automated count 50.7 % 4 1.0 - 51.0 [facility] Erythrocyte mean corpuscular volume [Entitic volume] by Auto mated count 89.1 fL 80.0 - 94.0 [facility] Erythrocyte mean corpuscular hemoglobin [Entitic mass] by Automated count 28.5 pg 27.0 - 34.0 [facility] Erythrocyte mean corpuscular hemoglobin concentration [Mass/volume] by Automated count 32.0 g/dL 31.0 - 36.0 [facility] Erythrocyte distribution width [Ratio] by Automated count 13.7 % 11.5 - 14.8 [facility] Platelets [#/volume] in Blood by Automated count 212 10^3/uL 150 - 45 0 [facility] Platelet mean volume [Entitic volume] in Blood by Automated count 9.0 fL 7.4 - 10.4 [facility] Neutrophils/100 leukocytes in Blood by Automated count 68.4 % 37. 0 - 80.0 [facility] Lymphocytes/100 leukocytes in Blood by Manual count 20.7 % 25.0 - 40.0 L [facility] Monocytes/100 leukocytes in Blood by Automated count 7.7 % 3.0 - 8.0 [facility] Eosinophils/100 leukocytes in Blood by Automated count 2.9 % 0.0 - 7.0 [facility] Basophils/100 leukocytes in Blood by Automated count 0.1 % 0.0 - 2.0 [facility] %IG 0.2 % 0.0 - 0.0 [facility] 0.0 % 0.0 - 0.0 [facility] Neutrophils [#/volume] in Blood by Automated count 5.84 10^3/uL 2.00 - 6.90 [facility] Lymphocytes [#/volume] in Blood by Automated count 1.77 10^3/uL 0.60 - 3.40 [facility] Monocytes [#/volume] in Blood by Automated count 0.66 10^3/uL 0.00 - 0.90 [facility] Eosinophils [#/volume] in Blood by Automated count 0.25 10^3/uL 0.00 - 0.70 [facility] Basophils [#/volume] in Blood by Automated count 0.01 10^3/uL 0.00 - 0.20 [facility] #IG 0.02 10^3/uL 0.00 - 0.10 [facility] #NRBC 0.00 10^3/uL 0.00 - 0.00 [facility] MANUAL DIFF NOT INDICATED [facility] RBC MORPH NOT INDICATED [facility] ID Date Data Source [id number] 01/13/2020 01:56:00 PM EDT [facility] ([facility]) Name Value Range Interpretation Code Description Data Giovana rce(s) Supporting Document(s) Urinalysis Laboratory test result [facility] ([facility]) URINALYSIS Source Laboratory test result [facility] ([facility]) SOURCE: Clean Catch Color Laboratory test result [facility] ([facility]) SOURCE: Clean Catch Clarity Laboratory test result [facility] ([facility]) SOURCE: Clean Catch Spec [place] 1.005 1.001-1.030 [facility] ([facility]) SOURCE: Clean Catch pH 8 5-9 [facility] ([facility]) SOURCE: Clean Catch Bilirubin Laboratory test result [facility] ([facility]) SOURCE: Clean Catch Glucose Laboratory test result [facility] ([facility]) SOURCE: Clean Catch Ketone Laboratory test result [facility] ([facility]) SOURCE: Clean Catch Protein Laboratory test result [facility] ([facility]) SOURCE: Clean Catch Blood Laboratory test result [facility] ([facility]) SOURCE: Clean Catch Nitrite Laboratory test result [facility] ([facility]) SOURCE: Clean Catch Leuk Est Laboratory test result [facility] ([facility]) SOURCE: Clean Catch Urobilinogen Laboratory test result [facility] ([facility]) SOURCE: Clean Catch Microscopic Laboratory test result [facility] ([facility]) SOURCE: Clean Catch ID Date Data Source [id number] 01/13/2020 02:06:00 PM EDT [facility] Name Value Range Interpretation Code Description Data Giovana rce(s) Supporting Document(s) URINALYSIS [facility] giovanna URINALYSIS SOURCE R [facility] COLOR yellow NORMAL: Yellow [facility] CLARITY clear NORMAL: Clear [facility] Specific gravity of Urine by Test strip 1.005 1.001 - 1.030 [facility] pH 8 5 - 9 [facility] Glucose [Mass/volume] in Urine by Test strip NORM NORMAL: Negat rebekah [facility] Bilirubin.total [Presence] in Urine by Test strip NEG NORMAL: Negative [facility] Ketones [Presence] in Urine by Test strip NEG NORMAL: Negative [facility] Protein [Mass/volume] in Urine by Test strip NEG NORMAL: Negat rebekah [facility] Nitrite [Presence] in Urine by Test strip NEG NORMAL: Negative [facility] BLOOD NEG NORMAL: Negative [facility] Leukocyte esterase [Presence] in Urine by Test strip NEG MILAGROS L: Negative [facility] Urobilinogen [Mass/volume] in Urine by Test strip NOR less vanessa n 1.0 mg/dL [facility] MICROSCOPIC Not Indicate [facility] ID Date Data Source [id number] 01/12/2020 01:25:00 PM EDT [facility] ([facility]) Name Value Range Interpretation Code Description Data Giovana rce(s) Supporting Document(s) Ribs Unilat W/PA CXR LT Laboratory test result [facility] ([facility]) ID Date Data Source [id number] 12/28/2019 09:15:00 AM EDT [facility] ([facility]) Name Value Range Interpretation Code Description Data Giovana rce(s) Supporting Document(s) Coronavirus Covid-19 Laboratory test result [facility] ([facility]) This test was developed and its performa nce characteristics determined by [employer]. This test has not been FDA cleared [...] in this assay. ID Date Data Source [id number] 12/28/2019 09:15:00 AM EDT [facility] Name Value Range Interpretation Code Description Data Giovana rce(s) Supporting Document(s) SARS CORONAVIRUS 2 RNA [facility] This lab was ordered by [facility] bradley and reported by [facility]. ID Date Data Source [id number] 12/30/2019 06:32:00 AM EDT [facility] Name Value Range Interpretation Code Description Data Giovana rce(s) Supporting Document(s) SARS-CoV-2, TYRON Not Detected Not Detected [facility] This test was developed and its performa nce characteristics determinedby [facility]. This test has not been FDA [...] in this assay. ID Date Data Source [id number] 11/22/2019 09:49:00 AM EDT [facility] [address] [place] [address] PHONE: [phone] FAX: [phone] Name .................. : GAVIOTA ROMERO Los Acct Number.................. : [id number] ROOM. ................. : MR Number ................... : [id number] Stay type ............. : O/P Discharge Date......... ... : 11/19/19 Admit Date ......... : 11/19/19 Admit Phys .................... : HESTER HARD Date of ....... : 1990 Family Phys ................... : Amind HARD Phone .................. : [phone] Age ................................ : 29 Film# .................. .:[id number] Sex ................................. : M Unsigned transcriptions are preliminary reports and do not represent a medical or legal document SPINE LS COMPLETE [id number] COMPLETE:11/19/19 10:39 [id number] (SPINE PROC REASON: PAIN LUMBAR SPINE X-RAY: [...] Date: 11/19/19 15:31, Dictation Date: Copy for: [address] [place] [address] REC Page 1 of 1 Name Value Range Interpretation Code Description Data Giovana rce(s) Supporting Document(s) ID Date Data Source [id number] 11/22/2019 09:49:00 AM EDT [facility] [address] [place] [address] PHONE: [phone] FAX: [phone] Name .................. : GAVIOTA Madison Acct Number.................. : [id number] ROOM. ................. : MR Number ................... : [id number] Stay type ............. : O/P Discharge Date......... ... : 11/19/19 Admit Date ......... : 11/19/19 Admit Phys .................... : [employer] Date of ....... : 1990 Family Phys ................... : [employer] Phone .................. : [phone] Age ................................ : 29 Film# .................. .:[id number] Sex ................................. : M Unsigned transcriptions are preliminary reports and do not represent a medical or legal document SPINE THORACIC [id number] COMPLETE:11/19/19 10:39 [id number] (SPINE PROC REASON: PAIN THORACIC SPINE SERIES: FINDINGS: Moderate degenerative spondylosis is seen on vertebral body endplates. Acute fracture, subluxation or focal osseous lesion is not seen. The paraspinal soft tissues are unremarkable. IMPRESSION: Degenerative spondylosis. No acute osseous or joint space abnormality. Electronically Reviewed and Signed By Mami Werner MD , 11/22/19 09:49, KG[facility]ryst[facility] Transcribe Initials: DZ , Transcribe Date: 11/19/19 15:30, Dictation Date: Copy for: 710 MED REC Page 1 of 1 Name Value Range Interpretation Code Description Data Giovana rce(s) Supporting Document(s) ID Date Data Source [id number] 11/18/2019 03:15:00 PM EDT [facility] ([facility]) Name Value Range Interpretation Code Description Data Giovana rce(s) Supporting Document(s) Source Laboratory test result [facility] ([facility]) Is patient fasting? N {SOURCE: Random Void~NURSE COLLECTED? N Is patient fasting? N Urinalysis Laboratory test result [facility] ([facility]) Is patient fasting? N {SOURCE: Random Void~NURSE COLLECTED? N Is patient fasting? N Color Laboratory test result [facility] ([facility]) Is patient fasting? N {SOURCE: Random Void~NURSE COLLECTED? N Is patient fasting? N Clarity Laboratory test result [facility] [facility] Is patient fasting? N {SOURCE: Random Void~NURSE COLLECTED? N Is patient fasting? N Glucose Laboratory test result [facility] ([facility]) Is patient fasting? N {SOURCE: Random Void~NURSE COLLECTED? N Is patient fasting? N pH 5 5-9 [facility] ([facility]) Is patient fasting? N {SOURCE: Random Void~NURSE COLLECTED? N Is patient fasting? N Spec [place] 1.015 1.001-1.030 [facility] ([facility]) Is patient fasting? N {SOURCE: Random Void~NURSE COLLECTED? N Is patient fasting? N Bilirubin Laboratory test result [facility] ([facility]) Is patient fasting? N {SOURCE: Random Void~NURSE COLLECTED? N Is patient fasting? N Protein Laboratory test result [facility] ([facility]) Is patient fasting? N {SOURCE: Random Void~NURSE COLLECTED? N Is patient fasting? N Ketone Laboratory test result [facility] ([facility]) Is patient fasting? N {SOURCE: Random Void~NURSE COLLECTED? N Is patient fasting? N Blood Laboratory test result [facility] ([facility]) Is patient fasting? N {SOURCE: Random Void~NURSE COLLECTED? N Is patient fasting? N Nitrite Laboratory test result [facility] ([facility]) Is patient fasting? N {SOURCE: Random Void~NURSE COLLECTED? N Is patient fasting? N Microscopic Laboratory test result M [facility] ([facility]) Is patient fasting? N {SOURCE: Random Void~NURSE COLLECTED? N Is patient fasting? N Leuk Est Laboratory test result [facility] ([facility]) Is patient fasting? N {SOURCE: Random Void~NURSE COLLECTED? N Is patient fasting? N Urobilinogen Laboratory test result [facility] ([facility]) Is patient fasting? N {SOURCE: Random Void~NURSE COLLECTED? N Is patient fasting? N ID Date Data Source [id number] 11/18/2019 03:15:00 PM EDT [facility] ([facility]) Name Value Range Interpretation Code Description Data Giovana rce(s) Supporting Document(s) Thyrotropin [Units/volume] in Serum or Plasma 1.85 uIU/mL 0.47-5.01 [facility] ([facility]) Is patient fasting? N {SOURCE: Random Void~NURSE COLLECTED? N Is patient fasting? N Thyroxine (T4) free [Mass/volume] in Serum or Plasma 0.72 ng/dL 0.93-1.70 Below low normal [facility] ([facility]) Is patient fasting? N {SOURCE: Random Void~NURSE COLLECTED? N Is patient fasting? N Hemoglobin A1c/Hemoglobin.total in Blood 4.3 % 4.4-6.1 Below low normal [facility] ([facility]) Is patient fasting? N {SOURCE: Random Void~NURSE COLLECTED? N Is patient fasting? N ID Date Data Source [id number] 11/18/2019 03:15:00 PM EDT [facility] ([facility]) Name Value Range Interpretation Code Description Data Giovana rce(s) Supporting Document(s) Cve Panel Laboratory test result [facility] ([facility]) Is patient fasting? N {SOURCE: Random Void~NURSE COLLECTED? N Is patient fasting? N Cholesterol 220 mg/dL 131-200 Above high normal [facility] ([facility]) Is patient fasting? N {SOURCE: Random Void~NURSE COLLECTED? N Is patient fasting? N HDL 46 mg/dL 29-86 [facility] ([facility]) Is patient fasting? N {SOURCE: Random Void~NURSE COLLECTED? N Is patient fasting? N Triglycerides 250 mg/dL 35-160 Above high normal [facility] NT ([facility]) Is patient fasting? N {SOURCE: Random Void~NURSE COLLECTED? N Is patient fasting? N LDL/HDL 3.46 1.00-3.55 [facility] ([facility]) Is patient fasting? N {SOURCE: Random Void~NURSE COLLECTED? N Is patient fasting? N LDL 159 mg/dL 65-175 [facility] ([facility]) Is patient fasting? N {SOURCE: Random Void~NURSE COLLECTED? N Is patient fasting? N Risk Factor 4.8 3.4-4.9 [facility] ([facility]) Is patient fasting? N {SOURCE: Random Void~NURSE COLLECTED? N Is patient fasting? N ID Date Data Source [id number] 11/18/2019 03:15:00 PM EDT [facility] ([facility]) Name Value Range Interpretation Code Description Data Giovana rce(s) Supporting Document(s) Comprehensive Metabo Laboratory test result [facility] ([facility]) Is patient fasting? N {SOURCE: Random Void~NURSE COLLECTED? N Is patient fasting? N Chloride 104 meq/L 98-107 [facility] ([facility]) Is patient fasting? N {SOURCE: Random Void~NURSE COLLECTED? N Is patient fasting? N Potassium 4.0 meq/L 3.6-5.0 [facility] ([facility]) Is patient fasting? N {SOURCE: Random Void~NURSE COLLECTED? N Is patient fasting? N Sodium 142 meq/L 134-153 [facility] ([facility]) Is patient fasting? N {SOURCE: Random Void~NURSE COLLECTED? N Is patient fasting? N Co2 27 meq/L 22-30 [facility] ([facility]) Is patient fasting? N {SOURCE: Random Void~NURSE COLLECTED? N Is patient fasting? N Glucose 91 mg/dL 65-110 [facility] ([facility]) Is patient fasting? N {SOURCE: Random Void~NURSE COLLECTED? N Is patient fasting? N BUN/Creat 17 8-27 [facility] ([facility]) Is patient fasting? N {SOURCE: Random Void~NURSE COLLECTED? N Is patient fasting? N BUN 15 mg/dL 7-21 [facility] ([facility]) Is patient fasting? N {SOURCE: Random Void~NURSE COLLECTED? N Is patient fasting? N Creatinine 0.9 mg/dL 0.7-1.5 [facility] ([facility]) Is patient fasting? N {SOURCE: Random Void~NURSE COLLECTED? N Is patient fasting? N Albumin 4.4 g/dL 3.9-5.0 [facility] ([facility]) Is patient fasting? N {SOURCE: Random Void~NURSE COLLECTED? N Is patient fasting? N Globulin 3.2 GM/DL 2.4-3.2 [facility] ([facility]) Is patient fasting? N {SOURCE: Random Void~NURSE COLLECTED? N Is patient fasting? N Total Protein 7.6 g/dL 6.3-8.2 [facility] ([facility]) Is patient fasting? N {SOURCE: Random Void~NURSE COLLECTED? N Is patient fasting? N Calcium 9.3 mg/dL 8.4-10.2 [facility] ([facility]) Is patient fasting? N {SOURCE: Random Void~NURSE COLLECTED? N Is patient fasting? N A/G Ratio 1.4 0.8-2.0 [facility] ([facility]) Is patient fasting? N {SOURCE: Random Void~NURSE COLLECTED? N Is patient fasting? N Total Bili Laboratory test result 0.2-1.3 [facility] ([facility]) Is patient fasting? N {SOURCE: Random Void~NURSE COLLECTED? N Is patient fasting? N Alkaline Phos 114 U/L 38-126 [facility] ([facility]) Is patient fasting? N {SOURCE: Random Void~NURSE COLLECTED? N Is patient fasting? N Sgot/Ast 22 U/L 5-40 [facility] ([facility]) Is patient fasting? N {SOURCE: Random Void~NURSE COLLECTED? N Is patient fasting? N Age 29 yrs [facility] ([facility]) Is patient fasting? N {SOURCE: Random Void~NURSE COLLECTED? N Is patient fasting? N SGPT/Alt 34 U/L 7-56 [facility] ([facility]) Is patient fasting? N {SOURCE: Random Void~NURSE COLLECTED? N Is patient fasting? N Anion Gap 11.0 mmol/L 8.0-16.0 [facility] ([facility]) Is patient fasting? N {SOURCE: Random Void~NURSE COLLECTED? N Is patient fasting? N Afr Amer GFR Laboratory test result [facility] ([facility]) Is patient fasting? N {SOURCE: Random Void~NURSE COLLECTED? N Is patient fasting? N Non-Aa GFR Laboratory test result [facility] ([facility]) Is patient fasting? N {SOURCE: Random Void~NURSE COLLECTED? N Is patient fasting? N ID Date Data Source [id number] 11/18/2019 03:15:00 PM EDT [facility] ([facility]) Name Value Range Interpretation Code Description Data Giovana rce(s) Supporting Document(s) RBC 5.74 10^6/uL 4.50-6.30 [facility] ([facility]) Is patient fasting? N {SOURCE: Random Void~NURSE COLLECTED? N Is patient fasting? N CBC W/Automated Diff Laboratory test result [facility] ([facility]) Is patient fasting? N {SOURCE: Random Void~NURSE COLLECTED? N Is patient fasting? N WBC 9.5 10^3/uL 4.2-11.0 [facility] ([facility]) Is patient fasting? N {SOURCE: Random Void~NURSE COLLECTED? N Is patient fasting? N Hemoglobin 16.5 g/dL 14.0-16.0 Above high normal [facility] ([facility]) Is patient fasting? N {SOURCE: Random Void~NURSE COLLECTED? N Is patient fasting? N MCV 87.5 fL 80.0-94.0 [facility] ([facility]) Is patient fasting? N {SOURCE: Random Void~NURSE COLLECTED? N Is patient fasting? N Hematocrit 50.2 % 41.0-51.0 [facility] ([facility]) Is patient fasting? N {SOURCE: Random Void~NURSE COLLECTED? N Is patient fasting? N RDW 13.7 % 11.5-14.8 [facility] ([facility]) Is patient fasting? N {SOURCE: Random Void~NURSE COLLECTED? N Is patient fasting? N MCHC 32.9 g/dL 31.0-36.0 [facility] ([facility]) Is patient fasting? N {SOURCE: Random Void~NURSE COLLECTED? N Is patient fasting? N MCH 28.7 pg 27.0-34.0 [facility] ([facility]) Is patient fasting? N {SOURCE: Random Void~NURSE COLLECTED? N Is patient fasting? N MPV 9.2 fL 7.4-10.4 [facility] ([facility]) Is patient fasting? N {SOURCE: Random Void~NURSE COLLECTED? N Is patient fasting? N Platelets 202 10^3/uL 150-450 [facility] ([facility]) Is patient fasting? N {SOURCE: Random Void~NURSE COLLECTED? N Is patient fasting? N Neut 67.2 % 37.0-80.0 [facility] ([facility]) Is patient fasting? N {SOURCE: Random Void~NURSE COLLECTED? N Is patient fasting? N [place] 7.2 % 3.0-8.0 [facility] ([facility]) Is patient fasting? N {SOURCE: Random Void~NURSE COLLECTED? N Is patient fasting? N Eos 3.6 % 0.0-7.0 [facility] ([facility]) Is patient fasting? N {SOURCE: Random Void~NURSE COLLECTED? N Is patient fasting? N Lymph 21.5 % 25.0-40.0 Below low normal [facility] ( [facility]) Is patient fasting? N {SOURCE: Random Void~NURSE COLLECTED? N Is patient fasting? N Baso 0.2 % 0.0-2.0 [facility] ([facility]) Is patient fasting? N {SOURCE: Random Void~NURSE COLLECTED? N Is patient fasting? N %NRBC 0.0 % 0.0-0.0 [facility] ([facility]) Is patient fasting? N {SOURCE: Random Void~NURSE COLLECTED? N Is patient fasting? N %Ig 0.3 % 0.0-0.0 Above high normal [facility] ([facility]) Is patient fasting? N {SOURCE: Random Void~NURSE COLLECTED? N Is patient fasting? N #Neut 6.39 10^3/uL 2.00-6.90 [facility] ([facility]) Is patient fasting? N {SOURCE: Random Void~NURSE COLLECTED? N Is patient fasting? N #Lymph 2.04 10^3/uL 0.60-3.40 [facility] ([facility]) Is patient fasting? N {SOURCE: Random Void~NURSE COLLECTED? N Is patient fasting? N #[place] 0.68 10^3/uL 0.00-0.90 [facility] ([facility]) Is patient fasting? N {SOURCE: Random Void~NURSE COLLECTED? N Is patient fasting? N #Baso 0.02 10^3/uL 0.00-0.20 [facility] ([facility]) Is patient fasting? N {SOURCE: Random Void~NURSE COLLECTED? N Is patient fasting? N #Ig 0.03 10^3/uL 0.00-0.10 [facility] ([facility]) Is patient fasting? N {SOURCE: Random Void~NURSE COLLECTED? N Is patient fasting? N #Eos 0.34 10^3/uL 0.00-0.70 [facility] ([facility]) Is patient fasting? N {SOURCE: Random Void~NURSE COLLECTED? N Is patient fasting? N #NRBC 0.00 10^3/uL 0.00-0.00 [facility] ([facility]) Is patient fasting? N {SOURCE: Random Void~NURSE COLLECTED? N Is patient fasting? N Manual Diff Laboratory test result [facility] ([facility]) Is patient fasting? N {SOURCE: Random Void~NURSE COLLECTED? N Is patient fasting? N RBC Morph Laboratory test result [facility] ([facility]) Is patient fasting? N {SOURCE: Random Void~NURSE COLLECTED? N Is patient fasting? N ID Date Data Source [id number] 11/18/2019 07:45:00 PM EDT [facility] Name Value Range Interpretation Code Description Data Giovana rce(s) Supporting Document(s) CVE PANEL [facility] LIPID PANEL Cholesterol [Mass/volume] in Serum or Plasma 220 MG/DL 131 - 200 H [facility] Deprecated Triglyceride [Mass/volume] in Serum or Plasma 250 MG/DL 3 5 - 160 H [facility] HDL 46 MG/DL 29 - [facility] Cholesterol in LDL/Cholesterol in HDL [Mass Ratio] in Serum or Plasma 159 mg/dL 65 - 175 [facility] Cholesterol.total/Cholesterol in HDL [Mass Ratio] in Serum o r Plasma 4.8 3.4 - 4.9 [facility] LDL/HDL 3.46 1.00 - 3.55 [facility] CVE RISK CHOL/HDL LDL/HDLMEN: 1/2 AVERAGE 3.43 1.00 AVERAGE 4.97 3.55 2X AVERAGE 9.55 6.25 3X AVERAGE 23.99 7.99WOMEN: 1/2 AVERAGE 3.27 1.47 AVERAGE 4.44 3.22 2X AVERAGE 7.05 5.03 3X AVERAGE 11.04 6.14 ID Date Data Source [id number] 11/18/2019 07:27:00 PM EDT [facility] Name Value Range Interpretation Code Description Data Giovana rce(s) Supporting Document(s) [facility]IS [facility] URINALYSIS SOURCE R [facility] COLOR yellow NORMAL: Yellow [facility] CLARITY clear NORMAL: Clear [facility] Specific gravity of Urine by Test strip 1.015 1.001 - 1.030 [facility] pH 5 5 - 9 [facility] Glucose [Mass/volume] in Urine by Test strip NORM NORMAL: Negat [facility] Bilirubin.total [Presence] in Urine by Test strip NEG NORMAL: Negative [facility] Ketones [Presence] in Urine by Test strip NEG NORMAL: Negative [facility] Protein [Mass/volume] in Urine by Test strip NEG NORMAL: Negat [facility] Nitrite [Presence] in Urine by Test strip NEG NORMAL: Negative [facility] BLOOD NEG NORMAL: Negative [facility] Leukocyte esterase [Presence] in Urine by Test strip NEG MILAGROS L: Negative [facility] Urobilinogen [Mass/volume] in Urine by Test strip NOR less vanessa n 1.0 mg/dL [facility] MICROSCOPIC Not Indicate [facility] ID Date Data Source [id number] 11/18/2019 07:44:00 PM EDT [facility] Name Value Range Interpretation Code Description Data Giovana rce(s) Supporting Document(s) Hemoglobin A1c/Hemoglobin.total in Blood 4.3 % 4.4 - 6.1 L [facility] {A1]{HB] ID Date Data Source [id number] 11/18/2019 07:54:00 PM EDT [facility] Name Value Range Interpretation Code Description Data Giovana rce(s) Supporting Document(s) Thyroxine (T4) free index in Serum or Plasma by calculation 0.72 NG/DL 0.93 - 1.70 L [facility] ID Date Data Source [id number] 11/18/2019 07:54:00 PM EDT [facility] Name Value Range Interpretation Code Description Data Giovana rce(s) Supporting Document(s) Thyrotropin [Units/volume] in Serum or Plasma by Detec tion limit <= 0.05 mIU/L 1.85 uIU/mL 0.47 - 5.01 [facility] ID Date Data Source [id number] 11/18/2019 07:45:00 PM EDT [facility] Name Value Range Interpretation Code Description Data Giovana rce(s) Supporting Document(s) COMPREHENSIVE METABOLIC PANEL [facility] COMPREHENSIVE METABOLIC PANEL Sodium [Moles/volume] in Serum or Plasma 142 mEq/L 134 - 153 [facility] Potassium [Moles/volume] in Serum or Plasma 4.0 mEq/L 3.6 - 5.0 [facility] Chloride [Moles/volume] in Serum or Plasma 104 mEq/L 98 - 107 [facility] Carbon dioxide, total [Moles/volume] in Serum or Plasma 27 MEQ/L 22 - 30 [facility] Glucose [Mass/volume] in Serum or Plasma 91 MG/DL 65 - 110 [facility] BUN 15 MG/DL 7 - 21 [facility] Creatinine [Mass/volume] in Serum or Plasma 0.9 MG/DL 0.7 - 1.5 [facility] BUN/CREAT 17 8 - 27 [facility] Protein [Mass/volume] in Serum or Plasma 7.6 G/DL 6.3 - 8.2 [facility] Albumin [Mass/volume] in Serum or Plasma 4.4 G/DL 3.9 - 5.0 [facility] Globulin [Mass/volume] in Serum by calculation 3.2 GM/DL 2.4 - 3.2 [facility] A/G RATIO 1.4 0.8 - 2.0 [facility] Calcium [Mass/volume] in Serum or Plasma 9.3 MG/DL 8.4 - 10.2 [facility] Bilirubin.total [Mass/volume] in Serum or Plasma <0.7 MG/DL 0.2 - 1.3 [facility] Alkaline phosphatase [Enzymatic activity/volume] in Serum or Plasma 114 U/L 38 - 126 [facility] Aspartate aminotransferase [Enzymatic activity/volume] in Serum or Plasma 22 U/L 5 - 40 [facility] Alanine aminotransferase [Enzymatic activity/volume] in Seru m or Plasma 34 U/L 7 - 56 [facility] Anion gap 3 in Serum or Plasma 11.0 mmol/L 8.0 - 16.0 [facility] AGE 29 y[facility] NON-[facility] GFR >60 mL/min [facility] AFR AMER GFR >60 mL/min [facility] Male GFR In terprentation 20-49 [...] >32 mL/min Normal ID Date Data Source [id number] 11/18/2019 07:34:00 PM EDT [facility] Name Value Range Interpretation Code Description Data Giovana rce(s) Supporting Document(s) CBC W/AUTOMATED DIFF [facility] COMPLETE BLOOD COUNT Leukocytes [#/volume] in Blood by Automated count 9.5 10^3/uL 4.2 - 1 1.0 [facility] Erythrocytes [#/volume] in Blood by Automated count 5.74 10^6/uL 4. 50 - 6.30 [facility] Hemoglobin [Mass/volume] in Blood 16.5 g/dL 14.0 - 16.0 H [facility] Hematocrit [Volume Fraction] of Blood by Automated count 50.2 % 4 1.0 - 51.0 [facility] Erythrocyte mean corpuscular volume [Entitic volume] by Auto mated count 87.5 fL 80.0 - 94.0 [facility] Erythrocyte mean corpuscular hemoglobin [Entitic mass] by Automated count 28.7 pg 27.0 - 34.0 [facility] Erythrocyte mean corpuscular hemoglobin concentration [Mass/volume] by Automated count 32.9 g/dL 31.0 - 36.0 [facility] Erythrocyte distribution width [Ratio] by Automated count 13.7 % 11.5 - 14.8 [facility] Platelets [#/volume] in Blood by Automated count 202 10^3/uL 150 - 45 0 [facility] Platelet mean volume [Entitic volume] in Blood by Automated count 9.2 fL 7.4 - 10.4 [facility] Neutrophils/100 leukocytes in Blood by Automated count 67.2 % 37. 0 - 80.0 [facility] Lymphocytes/100 leukocytes in Blood by Manual count 21.5 % 25.0 - 40.0 L [facility] Monocytes/100 leukocytes in Blood by Automated count 7.2 % 3.0 - 8.0 [facility] Eosinophils/100 leukocytes in Blood by Automated count 3.6 % 0.0 - 7.0 [facility] Basophils/100 leukocytes in Blood by Automated count 0.2 % 0.0 - 2.0 [facility] %IG 0.3 % 0.0 - 0.0 H [facility] %NRBC 0.0 % 0.0 - 0.0 [facility] Neutrophils [#/volume] in Blood by Automated count 6.39 10^3/uL 2.00 - 6.90 [facility] Lymphocytes [#/volume] in Blood by Automated count 2.04 10^3/uL 0.60 - 3.40 [facility] Monocytes [#/volume] in Blood by Automated count 0.68 10^3/uL 0.00 - 0.90 [facility] Eosinophils [#/volume] in Blood by Automated count 0.34 10^3/uL 0.00 - 0.70 [facility] Basophils [#/volume] in Blood by Automated count 0.02 10^3/uL 0.00 - 0.20 [facility] #IG 0.03 10^3/uL 0.00 - 0.10 [facility] #NRBC 0.00 10^3/uL 0.00 - 0.00 [facility] ospital MANUAL DIFF NOT INDICATED [facility] RBC MORPH NOT INDICATED [facility] spital ID Date Data Source [id number] 11/18/2019 03:08:00 PM EDT [facility] ([facility]) Name Value Range Interpretation Code Description Data Giovana rce(s) Supporting Document(s) Spine LS Complete <pending> [facility] ([facility]) Spine Thoracic <pending> [facility] ([facility]) ID Date Data Source [id number] 10/25/2019 08:46:00 AM EDT [facility] [address] [place] [address] PHONE: [phone] FAX: [phone] Name .................. : GAVIOTA Madison Acct Number.................. : [id number] ROOM. ................. : TR-02 MR Number ................... : [id number] Stay type ............. : E/R Discharge Date......... ... : 10/21/19 Admit Date ......... : 10/21/19 Admit Phys .................... : KHANH LANTIGUA Date of ....... : 1990 Family Phys ................... : NO PCP Phone .................. : [phone] Age ................................ : 29 Film# .................. .:[id number] Sex ................................. : M Unsigned transcriptions are preliminary reports and do not represent a medical or legal document CT ABD & PELV W/O ORAL W/O IV [id number] COMPLETE:10/21/19 19:36 [facility] [id number] Reason(s): gross hematuria x [address] [...] fat-containing inguinal hernias. Page 1 of [address] [place] [address] PHONE: [phone] FAX: [phone] Name .................. : GAVIOTA Madison Acct Number.................. : [id number] ROOM. ................. : TR-02 MR Number ................... : [id number] Stay type ............. : E/R Discharge Date......... ... : 10/21/19 Admit Date ......... : 10/21/19 Admit Phys .................... : CHUYITAS RHINA Date of ....... : 1990 Family Phys ................... : NO PCP Phone .................. : [phone] Age ................................ : 29 Film# .................. .:[id number] Sex ................................. : M Unsigned transcriptions are preliminary reports and do not represent a medical or legal document CT ABD & PELV W/O ORAL W/O IV [id number] COMPLETE:10/21/19 19:36 [facility] [id number] Reason(s): gross hematuria x 3 weeks Evaluation [...] rce(s) Supporting Document(s) ID Date Data Source [id number] 10/21/2019 03:31:00 PM EDT [facility] 1 OrderSheet [facility] Emergency Department [address] [place] [address] Phone #: ext- [phone] 10/21/2019 15:22 Patient: NICK TRUJILLO Sex: M : 1990 Age: 29yWEIGHT:176.4 kg HEIGHT:71 inches BMI:54.3ALLERGIES: Dilantin, Naproxsyn, Tylenol with codeinCHIEF COMPLAINT: dysuriaDIAGNOSIS: Renal colic, Blood in urineLAB ORDERSOrder Description Priority Entered Acknowledged InitialedUrinalysis (Clean STAT 15:30 10/21/2019 15:31 Rehana Crane) Morgan TANG; Kota BaeCBC w Diff STAT 16:14 10/21/2019 Ack'd: 16:20 16:44 Morgan Crane; Kota Crane R.N. REricCMP STAT 16:14 10/21/2019 Ack'd: 16:20 16:44 Morgan Crane; Kota Crane R.N., R.N.DIAGNOSTIC STUDY ORDERSOrder Description Priority Entered Acknowledged InitialedCT ABD PEL W/O STAT 16:14 10/21/2019 Ack'd: 16:20 16:44 Royce,Oral W/O IV Morgan TANG; Kota Crane RShayNShay(Oxygen?(No))(IV?(No)) Reason for Study: gross hematuria x 3 weeksMEDICATION/IV/DRIP/FLUID ORDERSOrder Description Priority Entered Acknowledged InitialedGENERAL ORDERSOrder Description Priority Entered Acknowledged Initialed[Electronically signed by Kota Crane R.N. (17:42 10/21/2019)][Electronically signed by Morgan Pedraza (18:16 10/21/2019)][Electronically locked by Kota Crane R.N. (17:42 10/21/2019)] Name Value Range Interpretation Code Description Data Giovana rce(s) Supporting Document(s) ID Date Data Source [id number] 10/21/2019 03:31:00 PM EDT [facility] 1 Medication Reconciliation Report [facility] Emergency Department [address] [place] [address] Phone #: ext- [phone] 10/21/2019 15:22 Patient: [...] Dispense 28capsule. Refills: 0. Substitution permitted.Pharmacy - [phone] - [address], [place] [phone]. . -- CLYDE Milton Name Value Range Interpretation Code Description Data Giovana rce(s) Supporting Document(s) ID Date Data Source [id number] 10/21/2019 03:31:00 PM EDT [facility] 1 Medication Administration Record [facility] Emergency Department [address] [place] [address] Phone #: ext [phone] 10/21/2019 15:22 Patient: NICK TRUJILLO Sex: M : 1990 Age: 29yWeight: 176.4 kgHeight/Length: 71 inBMI: 54.3ALLERGIES: Naproxsyn, Tylenol with codein, DilantinDate/Time Medication Administered Medication Ordered Name Value Range Interpretation Code Description Data Giovana rce(s) Supporting Document(s) ID Date Data Source [id number] 10/21/2019 03:31:00 PM EDT [facility] 1 General Instructions [facility] Emergency Department [address] [place] [address] Phone #: ext [phone] 10/21/2019 15:22 Patient: NICK TRUJILLO Sex: M [...] Dispense 28capsule. Refills: 0. Substitution permitted.Pharmacy - [phone] - [address], [place] [phone]. .Follow-up:Follow up with your healthcare provider in [...] INFORMATIONBlood in the Urine 2 General Instructions [facility] Emergency Department [address] [place] [address] Phone #: ext- [phone] 10/21/2019 15:22 Patient: NICK TRUJILLO Sex: M [...] had blood in your 3 General Instructions [facility] Emergency Department [address] [place] [address] Phone #: ext- [phone] 10/21/2019 15:22 Patient: [...] the nose or gums or easy bruising [phone] [employer]. [address] [place] [address], [place] [address]. All rights reserved. This information is not [...] rce(s) Supporting Document(s) ID Date Data Source [id number] 10/21/2019 03:31:00 PM EDT [facility] 1 Clinical Report - Nurses [facility] Emergency Department [address] [place] [address] Phone #: ext- [phone] 10/21/2019 15:22 Patient: NICK TRUJILLO Sex: M [...] --15:25 10/21/19 Kota Crane R.N.Naproxsyn. --15:25 10/21/19 Crane, Kota, R.N.PROBLEMS:Asthma.Seziures. --15:10/21/19 Kota Crane R.N.ADDITIONAL SURGERIES:Hernia Repair. --1510/21/19 Kota Carne R.N.HistorySOCIAL HX: Never smoker. No alcohol use [...] before today?". 2 Clinical Report - Nurses [facility] Emergency Department [address] [place] [address] Phone #: ext- [phone] 10/21/2019 15:22 Patient: [...] Identification band on patient. To treatment room. --15:10/21/19 Kota Crane R.N.PHYSICAL ASSESSMENT( Pt having trouble [...] Kota Crane R.N.NURSING PROGRESS NOTESPatient transported to [place] by wheelchair with facilities technician. --16:41 10/21/19 Kota Crane R.N. 17:01 10/21/19. BP: 127/71. MAP: 89. HR: 104. RR: 18. O2 saturation: 99%. --17:02 10/21/19 [facility] Tech, [place], ER Tech1.DISPOSITION / DISCHARGE 17:38 10/21/19. BP: 125/78. MAP: 93. HR: 98. RR: 18. O2 saturation: 99%. Temp: 98.6 F. --17:38 10/21/19 [facility] [employer] driver, [place], ER Tech1 Condition at departure: unchanged. Discharge instructions provided and reviewed with the patient. Reviewed medication(s). Prescription(s) sent electronically to pharmacy. Patient verbalized understanding. Written instructions provided in Palestinian. The patient was discharged by the physician. He was discharged home. He left ambulatory. Patient driving. --17:41 10/21/19 Kota Crane R.N. 17:41 10/21/19. Pain level now 0/10. --17:41 10/21/19 Kota Crane R.N. 3 Clinical Report - Nurses [facility] Emergency Department [address] [place] [address] Phone #: ext- [phone] 10/21/2019 15:22 Patient: NICK TRUJILLO Sex: M : 1990 Age: 29yLocked/Released at 10/21/2019 17:42 by Kota Crane R.N. Name Value Range Interpretation Code Description Data Giovana rce(s) Supporting Document(s) ID Date Data Source [id number] 10/21/2019 03:31:00 PM EDT [facility] 1 Clinical Report - Physicians/Mid Levels [facility] Emergency Department [address] [place] [address] Phone #: ext- [phone] 10/21/2019 15:22 Patient: [...] allergies. 2 Clinical Report - Physicians/Mid Levels [facility] Emergency Department [address] [place] [address] Phone #: ext- [phone] 10/21/2019 15:22 Patient: NICK TRUJILLO Sex: M [...] results 3 Clinical Report - Physicians/Mid Levels [facility] Emergency Department [address] [place] [address] Phone #: ext- [phone] 10/21/2019 15:22 [id number] Sex: M : 1990 Age: 29y Test [...] treatment. 4 Clinical Report - Physicians/Mid Levels [facility] Emergency Department [address] [place] [address] Phone #: [phone]- [phone] 10/21/2019 15:22 Patient: NICK TRUJILLO Sex: M [...] capsule. Refills: 0. Substitution permitted. Pharmacy - [id number] - [address] [facility] ; [place], [place] [id number]. . Follow- up: Follow up with your [...] rce(s) Supporting Document(s) ID Date Data Source [id number] 10/21/2019 04:27:00 PM EDT [facility] ([facility]) Name Value Range Interpretation Code Description Data Giovana rce(s) Supporting Document(s) Comprehensive Metabo Laboratory test result [facility] ([facility]) COMPREHENSIVE METABOLIC PANEL Chloride 106 meq/L 98-107 [facility] ([facility]) Potassium 4.0 meq/L 3.6-5.0 [facility] ([facility]) Sodium 144 meq/L 134-153 [facility] ([facility]) Co2 25 meq/L 22-30 [facility] ([facility]) BUN 10 mg/dL 7-21 [facility] ([facility]) Glucose 102 mg/dL 65-110 [facility] ([facility]) Creatinine 0.8 mg/dL 0.7-1.5 [facility] ([facility]) BUN/Creat 13 8-27 [facility] ([facility]) Total Protein 7.7 g/dL 6.3-8.2 [facility] ([facility]) Albumin 4.4 g/dL 3.9-5.0 [facility] ([facility]) Globulin 3.3 GM/DL 2.4-3.2 Above high normal [facility] ([facility]) Calcium 9.1 mg/dL 8.4-10.2 [facility] ([facility]) A/G Ratio 1.3 0.8-2.0 [facility] ([facility]) Total Bili Laboratory test result 0.2-1.3 [facility] ([facility]) Alkaline Phos 104 U/L 38-126 [facility] ([facility]) Sgot/Ast 27 U/L 5-40 [facility] ([facility]) Anion Gap 13.0 mmol/L 8.0-16.0 [facility] ([facility]) SGPT/Alt 43 U/L 7-56 [facility] ([facility]) Age 29 yrs [facility] ([facility]) Afr Amer GFR Laboratory test result [facility] ([facility]) Male GFR Interprentation 20-49 yrs >60 [...] mL/min Normal Non-Aa GFR [facility] ID Date Data Source [id number] 10/21/2019 04:27:00 PM EDT [facility] ([facility]) Name Value Range Interpretation Code Description Data Giovana rce(s) Supporting Document(s) CBC W/Automated Diff Laboratory test result [facility] ([facility]) COMPLETE BLOOD COUNT WBC 9.1 10^3/uL 4.2-11.0 [facility] ([facility]) RBC 5.69 10^6/uL 4.50-6.30 [facility] ([facility]) Hemoglobin 16.3 g/dL 14.0-16.0 Above high normal [facility] ([facility]) Hematocrit 50.9 % 41.0-51.0 [facility] ([facility]) MCV 89.5 fL 80.0-94.0 [facility] ([facility]) MCH 28.6 pg 27.0-34.0 [facility] ([facility]) RDW 13.9 % 11.5-14.8 [facility] ([facility]) MCHC 32.0 g/dL 31.0-36.0 [facility] ([facility]) MPV 8.9 fL 7.4-10.4 [facility] ([facility]) Platelets 224 10^3/uL 150-450 [facility] ([facility]) Neut 72.7 % 37.0-80.0 [facility] ([facility]) Lymph 15.4 % 25.0-40.0 Below low normal [facility] ( [facility]) [place] 9.1 % 3.0-8.0 Above high normal [facility] ([facility]) Baso 0.2 % 0.0-2.0 [facility] ([facility]) Eos 2.4 % 0.0-7.0 [facility] ([facility]) %Ig 0.2 % 0.0-0.0 Above high normal [facility] ([facility]) %NRBC 0.0 % 0.0-0.0 [facility] ([facility]) #Neut 6.61 10^3/uL 2.00-6.90 [facility] ([facility]) #[place] 0.83 10^3/uL 0.00-0.90 [facility] ([facility]) #Lymph 1.40 10^3/uL 0.60-3.40 [facility] ([facility]) #Eos 0.22 10^3/uL 0.00-0.70 [facility] ([facility]) #Baso 0.02 10^3/uL 0.00-0.20 [facility] ([facility]) #Ig 0.02 10^3/uL 0.00-0.10 [facility] ([facility]) #NRBC 0.00 10^3/uL 0.00-0.00 [facility] Manual Diff Laboratory test result [facility] ([facility]) RBC Morph Laboratory test result [facility] ([facility]) ID Date Data Source [id number] 10/21/2019 05:29:00 PM EDT [facility] Name Value Range Interpretation Code Description Data Giovana rce(s) Supporting Document(s) COMPREHENSIVE METABOLIC PANEL [facility] COMPREHENSIVE METABOLIC PANEL Sodium [Moles/volume] in Serum or Plasma 144 mEq/L 134 - 153 [facility] Potassium [Moles/volume] in Serum or Plasma 4.0 mEq/L 3.6 - 5.0 [facility] Chloride [Moles/volume] in Serum or Plasma 106 mEq/L 98 - 107 [facility] Carbon dioxide, total [Moles/volume] in Serum or Plasma 25 MEQ/L 22 - 30 [facility] Glucose [Mass/volume] in Serum or Plasma 102 MG/DL 65 - 110 [facility] BUN 10 MG/DL 7 - 21 [facility] al Creatinine [Mass/volume] in Serum or Plasma 0.8 MG/DL 0.7 - 1.5 [facility] BUN/CREAT 13 8 - 27 [facility] Protein [Mass/volume] in Serum or Plasma 7.7 G/DL 6.3 - 8.2 [facility] Albumin [Mass/volume] in Serum or Plasma 4.4 G/DL 3.9 - 5.0 [facility] Globulin [Mass/volume] in Serum by calculation 3.3 GM/DL 2.4 - 3.2 H [facility] A/G RATIO 1.3 0.8 - 2.0 [facility] Calcium [Mass/volume] in Serum or Plasma 9.1 MG/DL 8.4 - 10.2 [facility] Bilirubin.total [Mass/volume] in Serum or Plasma <0.7 MG/DL 0.2 - 1.3 [facility] Alkaline phosphatase [Enzymatic activity/volume] in Serum or Plasma 104 U/L 38 - 126 [facility] Aspartate aminotransferase [Enzymatic activity/volume] in Serum or Plasma 27 U/L 5 - 40 [facility] Alanine aminotransferase [Enzymatic activity/volume] in Seru m or Plasma 43 U/L 7 - 56 [facility] Anion gap 3 in Serum or Plasma 13.0 mmol/L 8.0 - 16.0 [facility] AGE [address] [facility] NON-AA GFR >60 mL/min [facility] AFR AMER GFR >60 mL/min [facility] Male GFR In terprentation 20-49 [...] >32 mL/min Normal ID Date Data Source [id number] 10/21/2019 04:43:00 PM EDT [facility] Name Value Range Interpretation Code Description Data Giovana rce(s) Supporting Document(s) CBC W/AUTOMATED DIFF [facility] COMPLETE BLOOD COUNT Leukocytes [#/volume] in Blood by Automated count 9.1 10^3/uL 4.2 - 1 1.0 [facility] Erythrocytes [#/volume] in Blood by Automated count 5.69 10^6/uL 4. 50 - 6.30 [facility] Hemoglobin [Mass/volume] in Blood 16.3 g/dL 14.0 - 16.0 H [facility] Hematocrit [Volume Fraction] of Blood by Automated count 50.9 % 4 1.0 - 51.0 [facility] Erythrocyte mean corpuscular volume [Entitic volume] by Auto mated count 89.5 fL 80.0 - 94.0 [facility] Erythrocyte mean corpuscular hemoglobin [Entitic mass] by Automated count 28.6 pg 27.0 - 34.0 [facility] Erythrocyte mean corpuscular hemoglobin concentration [Mass/volume] by Automated count 32.0 g/dL 31.0 - 36.0 [facility] Erythrocyte distribution width [Ratio] by Automated count 13.9 % 11.5 - 14.8 [facility] Platelets [#/volume] in Blood by Automated count 224 10^3/uL 150 - 45 0 [facility] Platelet mean volume [Entitic volume] in Blood by Automated count 8.9 fL 7.4 - 10.4 [facility] Neutrophils/100 leukocytes in Blood by Automated count 72.7 % 37. 0 - 80.0 [facility] Lymphocytes/100 leukocytes in Blood by Manual count 15.4 % 25.0 - 40.0 L [facility] Monocytes/100 leukocytes in Blood by Automated count 9.1 % 3.0 - 8.0 H [facility] Eosinophils/100 leukocytes in Blood by Automated count 2.4 % 0.0 - 7.0 [facility] Basophils/100 leukocytes in Blood by Automated count 0.2 % 0.0 - 2.0 [facility] %IG 0.2 % 0.0 - 0.0 [facility] 0.0 % 0.0 - 0.0 [facility] Neutrophils [#/volume] in Blood by Automated count 6.61 10^3/uL 2.00 - 6.90 [facility] Lymphocytes [#/volume] in Blood by Automated count 1.40 10^3/uL 0.60 - 3.40 [facility] Monocytes [#/volume] in Blood by Automated count 0.83 10^3/uL 0.00 - 0.90 [facility] Eosinophils [#/volume] in Blood by Automated count 0.22 10^3/uL 0.00 - 0.70 [facility] Basophils [#/volume] in Blood by Automated count 0.02 10^3/uL 0.00 - 0.20 [facility] #IG 0.02 10^3/uL 0.00 - 0.10 [facility] #NRBC 0.00 10^3/uL 0.00 - 0.00 [facility] MANUAL DIFF NOT INDICATED [facility] RBC MORPH NOT INDICATED [facility] ID Date Data Source [id number] 10/21/2019 03:35:00 PM EDT [facility] ([facility]) Name Value Range Interpretation Code Description Data Giovana rce(s) Supporting Document(s) Urinalysis Laboratory test result [facility] ([facility]) SOURCE: Clean Catch Source Laboratory test result [facility] ([facility]) SOURCE: Clean Catch Color Laboratory test result [facility] ([facility]) SOURCE: Clean Catch pH 5 5-9 [facility] ([facility]) SOURCE: Clean Catch Clarity Laboratory test result [facility] ([facility]) SOURCE: Clean Catch Spec [place] 1.010 1.001-1.030 [facility] ([facility]) SOURCE: Clean Catch Glucose Laboratory test result [facility] ([facility]) SOURCE: Clean Catch Bilirubin Laboratory test result [facility] ([facility]) SOURCE: Clean Catch Ketone Laboratory test result [facility] ([facility]) SOURCE: Clean Catch Protein Laboratory test result [facility] ([facility]) SOURCE: Clean Catch Blood 10 Abnormal (applies to non-numeric res ults) [facility] ([facility]) SOURCE: Clean Catch Nitrite Laboratory test result [facility] ([facility]) SOURCE: Clean Catch Urobilinogen Laboratory test result [facility] ([facility]) SOURCE: Clean Catch Leuk Est Laboratory test result [facility] ([facility]) SOURCE: Clean Catch RBC Laboratory test result [facility] ([facility]) SOURCE: Clean Catch Microscopic Laboratory test result M [facility] ([facility]) SOURCE: Clean Catch Epithelial Laboratory test result [facility] ([facility]) SOURCE: Clean Catch ID Date Data Source [id number] 10/21/2019 04:12:00 PM EDT [facility] Name Value Range Interpretation Code Description Data Giovana rce(s) Supporting Document(s) URINALYSIS [facility] giovanna URINALYSIS SOURCE Clean Catch [facility] COLOR yellow NORMAL: Yellow [facility] CLARITY clear NORMAL: Clear [facility] Specific gravity of Urine by Test strip 1.010 1.001 - 1.030 [facility] pH 5 5 - 9 [facility] Glucose [Mass/volume] in Urine by Test strip NORM NORMAL: Negat [facility] Bilirubin.total [Presence] in Urine by Test strip NEG NORMAL: Negative [facility] Ketones [Presence] in Urine by Test strip NEG NORMAL: Negative [facility] Protein [Mass/volume] in Urine by Test strip NEG NORMAL: Negat [facility] Nitrite [Presence] in Urine by Test strip NEG NORMAL: Negative [facility] BLOOD 10 NORMAL: Negative A [facility] Leukocyte esterase [Presence] in Urine by Test strip NEG MILAGROS L: Negative [facility] Urobilinogen [Mass/volume] in Urine by Test strip NOR less vanessa n 1.0 mg/dL [facility] MICROSCOPIC See Below [facility] ital Erythrocytes [#/volume] in Urine by Test strip 0 - 1 NORMAL: NON E SEEN [facility] EPITHELIAL FEW NORMAL: NONE SEEN [facility] Hospital ID Date Data Source [id number] 09/14/2019 03:51:00 PM [facility] Patient Name: NICK TRUJILLO : 1990 Sex: M Pt Unit #: [id number] Location:[facility] Provider: Visit Date/Time: 09/14/19 Primary Insurance: [facility] Secondary Insurance: Self Pay Intake Vital [...] - ages 13-64 HIV testing Offer: No [facility] Social History (Updated 09/14/19 @ 15:51 by [...] arrange this because he is moving to [facility] this month and it may be hard to keep appointments. Here with forms for DSS to get some home health services. He seems to identify the problem with his right foot as the main reason for this. He has been seeing a surgeon in [place] for this and they are apparently recommending [...] of unspecified foot, initial encounter SNOMED Code(s): 248335150 Category: Medical Plan - Kota Anderson MD: Possibly soft tissue but worth doing an X ray to look at possible fractures. Continue conservative treatment. Encouraged him to consider taking Tylenol more often. (2) Low back pain at multiple sites: Status: Acute Code(s): M54.5 - Low back pain SNOMED Code(s): 588677505 Category: Medical Plan - Kota Anderson MD: [...] rce(s) Supporting Document(s) ID Date Data Source [id number] 08/12/2019 02:08:00 PM [facility] Patient Name: NICK TRUJILLO : 1990 Sex: M Pt Unit #: [id number] Location:[facility] Provider: Visit Date/Time: 08/12/19 Primary Insurance: [facility] Secondary Insurance: Self Pay Intake Vital [...] states medicine Dr. Anderson prescribed is working [employer] Required: No Is patient in pain?: Yes [...] offer been met?: Patient reports past refusal [facility] Medical History Acne (Chronic) Acne vulgaris (Acute [...] obesity due to excess calories SNOMED Code(s): 816581459 Category: Medical Electronically Signed By: <Electronically signed by Lance Arenas DO> Date/Time Signed: 08/12/19 1432 Name Value Range Interpretation Code Description Data Giovana rce(s) Supporting Document(s) Procedure Social History Code Duration Value Status Description Data Source(s ) Alcohol intake 06/28/2020 12:00:00 AM EST Current non-d roscoe of alcohol (finding) completed Current non-drinker of alcohol (finding) [facility] Tobacco use and exposure 06/28/2020 12:00:00 AM EST Never used co mpleted Never used [facility] Smoking 06/28/2020 12:00:00 AM EST Never smoker completed Never s [facility] Alcohol intake 06/06/2020 12:00:00 AM EST Current non-d roscoe of alcohol (finding) completed Current non-drinker of alcohol (finding) [facility] Alcohol intake 05/09/2020 12:00:00 AM EDT Current non-d roscoe of alcohol (finding) completed Current non-drinker of alcohol (finding) [facility] Alcohol intake 04/26/2020 12:00:00 AM EDT Current non-d roscoe of alcohol (finding) completed Current non-drinker of alcohol (finding) [facility] Alcohol intake 02/09/2020 12:00:00 AM EDT No completed [facility] Smoking 02/09/2020 12:00:00 AM EDT Never smoker completed Never [facility] Alcohol intake 02/04/2020 12:00:00 AM EDT No completed [facility] Smoking 02/04/2020 12:00:00 AM EDT Never smoker completed Never [facility] Caffeine Use Details 10/06/2019 12:00:00 AM EDT completed [facility] ([facility]) 10/06/2019 12:00:00 AM EDT Never smoked tobacco comple sheri Never smoked tobacco [facility] Smoking 10/06/2019 12:00:00 AM EDT Never smoker completed Never s [facility] ([facility]) 09/14/2019 03:51:40 PM EST Never smoker completed Never s [facility] Smoking 09/14/2019 03:51:00 PM EST Never smoker completed Never s [facility] 08/12/2019 02:22:00 PM EST Never smoker completed Never s [facility] 08/12/2019 02:22:00 PM EST No completed No [facility] 08/12/2019 02:22:00 PM EST No completed No [facility] Vital Signs ID Date Data Source UNK Name Value Range Interpretation Code Description Data Source(s) Body surface area Derived from formula 2.86 m2 2.86 m2 [facility]) Body weight 185.579 kg 185.579 kg [facility] ([facility]) [place] body weight 172 [lb_av] 172 [lb_av] [facility] ([facility]) Body mass index (BMI) [Ratio] 57.1 kg/m2 57.1 k g/m2 [facility] ([facility]) Body weight 409.12 [lb_av] 409.12 [lb_av] [facility] ([facility]) Body height 71 [in_i] 71 [in_i] [facility] ([facility]) 5'11" Diastolic blood pressure 88 mm[Hg] 88 mm[Hg] [facility] ([facility]) Systolic blood pressure 154 mm[Hg] 154 mm[Hg] [facility] Body surface area Derived from formula 2.79 m2 2.79 m2 [facility] ([facility]) Body weight 184.162 kg 184.162 kg [facility] ([facility]) [place] body weight 160 [lb_av] 160 [lb_av] [facility] ([facility]) Body mass index (BMI) [Ratio] 59.9 kg/m2 59.9 k g/m2 [facility] ([facility]) Body weight 406.00 [lb_av] 406.00 [lb_av] [facility] ([facility]) Body height 69 [in_i] 69 [in_i] [facility] ([facility]) 5'9" Body temperature 96.8 [degF] 96.8 [degF] [facility] ([facility]) Oxygen saturation in Arterial blood by Pulse oximetry 99 % 99 % [facility] ([facility]) Heart rate 99 /min 99 /min [facility] ([facility]) Diastolic blood pressure 80 mm[Hg] 80 mm[Hg] [facility] ([facility] ) Systolic blood pressure 122 mm[Hg] 122 mm[Hg] M [facility] ([facility], ) Diastolic blood pressure 82 mm[Hg] 82 mm[Hg] eCW1 ([facility]) Systolic blood pressure 136 mm[Hg] 136 mm[Hg] e CW1 ([facility]) Body mass index (BMI) [Ratio] 59.41 kg/m2 59.41 kg/m2 W1 ([facility]) Body height 71 [in_i] 71 [in_i] eCW1 ([facility]) Body weight 426 [lb_av] 426 [lb_av] eCW1 ([facility]) Diastolic blood pressure 92 mm[Hg] 92 mm[Hg] eCW1 ([facility]) Systolic blood pressure 138 mm[Hg] 138 mm[Hg] e CW1 ([facility]) Body mass index (BMI) [Ratio] 57.46 kg/m2 57.46 kg/m2 W1 ([facility]) Body height 71 [in_i] 71 [in_i] eCW1 ([facility]) Body weight 412 [lb_av] 412 [lb_av] eCW1 ([facility]) Body weight 180.986 kg 180.986 kg [facility] ([facility]) Body weight 399.00 [lb_av] 399.00 [lb_av] [facility] T ([facility]) Oxygen saturation in Arterial blood by Pulse [facility]ximetry 98 % 98 % [facility] Respiratory rate 18 /min 18 /min [facility] Body temperature 97.6 [degF] 97.6 [degF] [facility] ([facility]) Heart rate 96 /min 96 /min [facility] ([facility]) Diastolic blood pressure 78 mm[Hg] 78 mm[Hg] [facility] ([facility]) Systolic blood pressure 132 mm[Hg] 132 mm[Hg] M [facility]ENT ([facility]) Diastolic blood pressure 61 mm[Hg] 61 mm[Hg] [facility] Systolic blood pressure 120 mm[Hg] 120 mm[Hg] [facility] Oxygen saturation in Arterial blood by Pulse oximetry 93 % 93 % [facility] Body temperature 36.5 Opal 36.5 Opal [facility] Respiratory rate 16 /min 16 /min [facility] Heart rate 88 /min 88 /min [facility] Body mass index (BMI) [Ratio] 55.37 kg/m2 55.37 kg/m2 [facility] Body weight 180.078 kg 180.078 kg [facility] Body height 180.3 cm 180.3 cm [facility] Oxygen saturation in Arterial blood by Pulse oximetry 95 % 95 % [facility] Body mass index (BMI) [Ratio] 55.50 kg/m2 55.50 kg/m2 [facility] Body weight 180.486 kg 180.486 kg [facility] Body height 180.3 cm 180.3 cm [facility] Heart rate 96 /min 96 /min [facility] Diastolic blood pressure 61 mm[Hg] 61 mm[Hg] [facility] Systolic blood pressure 112 mm[Hg] 112 mm[Hg] [facility] Body weight 180.533 kg 180.533 [...] Body weight 180.533 kg 180.533 kg [facility] ([facility]) Body weight 398.00 [lb_av] 398.00 [lb_av] [facility] T ([facility]) Oxygen saturation in Arterial blood by Pulse oximetry 97 % 97 % [facility] ([facility]) Respiratory rate 22 /min 22 /min [facility] ( [facility]) Body temperature 97.6 [degF] 97.6 [degF] [facility] ([facility]) Heart rate 86 /min 86 /min [facility] ([facility]) Diastolic blood pressure 72 mm[Hg] 72 mm[Hg] [facility] ([facility]) Systolic blood pressure 130 mm[Hg] 130 mm[Hg] M EDENT ([facility]) Body surface [facility] 2.79 m2 2[facility]79 [facility] Body mass index (BMI) [Ratio] 54.1 kg/m2 54.1 k g/m2 [facility] ([facility]) Body height 71 [in_i] 71 [in_i] [facility] ([facility]) 5'11" Body weight 175.997 kg 175.997 kg [facility] ([facility]) per chart Body weight 388.00 [lb_av] 388.00 [lb_av] MEDEN T ([facility]) Body surface area 2.79 m2 2.79 m2 [facility] ([facility]) Body mass index (BMI) [Ratio] 54.1 kg/m2 54.1 k g/m2 [facility] ([facility]) Body height 71 [in_i] 71 [in_i] [facility] ([facility]) 5'11" Body weight 175.997 kg 175.997 kg [facility] ([facility]) Body weight 388.00 [lb_av] 388.00 [lb_av] MEDEN T ([facility]) Oxygen saturation in Arterial blood by Pulse oximetry 96 % 96 % [facility] ([facility]) Respiratory rate 24 /min 24 /min [facility] ( [facility]) wearing mask Body temperature 97.8 [degF] 97.8 [degF] [facility] ([facility]) Heart rate 76 /min 76 /min [facility] Diastolic blood pressure 58 mm[Hg] 58 mm[Hg] [facility] Systolic blood pressure 126 mm[Hg] 126 mm[Hg] M EDENT ([facility]) Body surface area 2.78 m2 2.78 m2 [facility] Body mass index (BMI) [Ratio] 53.6 kg/m2 53.6 k g/m2 [facility] ([facility]) Body height 71 [in_i] 71 [in_i] [facility] ([facility]) 5'11" Body weight 174.296 kg 174.296 [facility] Body weight 384.25 [lb_av] 384.25 [lb_av] [facility] T ([facility]) Oxygen saturation in Arterial blood by Pulse oximetry 98 % 98 % [facility] Respiratory rate 18 /min 18 /min [facility] ( [facility]) Body temperature 98.0 [degF] 98.0 [degF] [facility] ([facility]) Heart rate 94 /min 94 /min [facility] ([facility]) Diastolic blood pressure 64 mm[Hg] 64 mm[Hg] [facility] ([facility]) Systolic blood pressure 118 mm[Hg] 118 mm[Hg] [facility] Heart rate 92 /min 92 /min [facility] ([facility]) Diastolic blood pressure 88 mm[Hg] 88 mm[Hg] [facility] ([facility]) Systolic blood pressure 140 mm[Hg] 140 mm[Hg] N [facility] ([facility]) ID Date Data Source [id number] 06/09/2020 09:34:40 AM EST [facility] Name Value Range Interpretation Code Description Data Source(s) WEIGHT RECORDED 417.6 lb 417.6 lb [facility] Body height Measured 70.98 in 70.98 in [facility] ID Date Data Source [id number] 05/09/2020 02:17:55 PM EDT [facility] Name Value Range Interpretation Code Description Data Source(s) WEIGHT RECORDED 407 lb 407 lb [facility] Body height Measured 70.98 in 70.98 in [facility] ID Date Data Source [id number] 01/14/2020 09:34:45 AM EDT [facility] Name Value Range Interpretation Code Description Data Source(s) WEIGHT RECORDED 384.00 pounds 384.00 pounds [facility] Height 71 Inches 071 Inches [facility] Patient Treatment Plan of Care Planned Activity Planned Date Details Description Data Source (s) Misc. Devices (DURABLE MEDICAL EQUIPMENT SEE SIG) XX M ISC 06/28/2020 12:00:00 AM [facility] ospital Clindamycin 0.01 MG/MG Topical Gel 06/12/2020 12:00:00 AM EST eCW1 ([facility]) Cephalexin 500 MG Oral Capsule 06/06/2020 01:30:00 PM [facility] lidocaine (XYLOCAINE) 2 % urojet 20 mL 06/06/2020 01:30:00 PM [facility] Doxycycline Monohydrate 50 MG Oral Capsule 05/15/2020 12:00:00 AM E DT eCW1 ([facility]) ciclopirox 10 MG/ML Medicated Shampoo 05/15/2020 12:00:00 AM EDT eCW1 ([facility]) alclometasone dipropionate 0.5 MG/ML Topical Cream 05/15/2020 12 :00:00 AM EDT eCW1 ([facility]) Doxycycline Monohydrate 50 MG Oral Capsule 05/15/2020 12:00:00 AM E DT eCW1 ([facility]) ciclopirox 10 MG/ML Medicated Shampoo 05/15/2020 12:00:00 AM EDT eCW1 ([facility]) alclometasone dipropionate 0.5 MG/ML Topical Cream 05/15/2020 12 :00:00 AM EDT eCW1 ([facility]) Doxycycline Monohydrate 50 MG Oral Capsule 05/15/2020 12:00:00 AM E DT eCW1 ([facility]) ciclopirox 10 MG/ML Medicated Shampoo 05/15/2020 12:00:00 AM EDT eCW1 ([facility]) alclometasone dipropionate 0.5 MG/ML Topical Cream 05/15/2020 12 :00:00 AM EDT eCW1 ([facility]) alclometasone dipropionate 0.5 MG/ML Topical Cream 05/15/2020 12 :00:00 AM EDT eCW1 ([facility]) Doxycycline Monohydrate 50 MG Oral Capsule 05/15/2020 12:00:00 AM E DT eCW1 ([facility]) ciclopirox 10 MG/ML Medicated Shampoo 05/15/2020 12:00:00 AM EDT eCW1 ([facility]) Docusate Sodium 100 MG Oral Capsule [DOK] 04/07/2020 12:00:00 AM ED T [facility] Desvenlafaxine Succinate ER 100 MG Oral Tablet Extended Release 24 Hour (PRISTIQ) 04/07/2020 12:00:00 AM EDT [facility] Nystatin 100 UNT/MG Topical Powder 03/27/2020 12:00:00 AM EDT [facility] Oxycodone Hydrochloride 5 MG Oral Tablet 02/09/2020 12:00:00 AM EDT [facility] Misc. Devices (DURABLE MEDICAL EQUIPMENT SEE SIG) [facility] 10/09/2018 12:00:00 AM EDT [facility] ospital gabapentin 100 MG Oral Capsule 03/03/2018 12:00:00 AM EDT [facility] maalox/lidocaine/diphenhydrAMINE (RADIATION MIXTURE) 1 :1:1 oral suspension 05/29/2017 12:00:00 AM EDT [facility] Melatonin 3 MG Oral Tablet [facility] doxycycline hyclate 50 MG Oral Capsule [facility] PARoxetine (PAXIL) 30 MG tablet [facility]
[2020-08-24 18:55] LABS: APPEARANCE, URINE CLEAR (CLEAR); BACTERIA, URINE AUTO NEGATIVE (NEGATIVE); BILIRUBIN, URINE AUTO NEGATIVE (NEGATIVE); BLOOD, URINE BLOOD 1+ (NEGATIVE); COLOR, URINE STRAW (YELLOW); GLUCOSE, URINE (UA) AUTO NEGATIVE (NEGATIVE); KETONE, URINE AUTO NEGATIVE (NEGATIVE); LEUKOCYTE ESTERASE, URINE AUTO NEGATIVE (NEGATIVE); NITRITE, URINE AUTO NEGATIVE (NEGATIVE); PROTEIN, URINE AUTO NEGATIVE (NEGATIVE); RBC, URINE AUTO 1 /HPF (0-3); SPECIFIC GRAVITY URINE AUTO 1.004 (1.002-1.035); SQUAMOUS EPITHELIAL CELL UR AU 1 /HPF (0-6); UROBILINOGEN, URINE AUTO 0.2 mg/dL (0.0-2.0); WBC, URINE AUTO 0 /HPF (0-3)
[2020-08-24 19:01] LABS: HEMATOCRIT 52.1 % (42.0-52.0); HEMOGLOBIN 16.4 g/dl (13.5-17.5); MEAN CORPUSCULAR HEMOGLOBIN 29.1 pg (27.0-33.0); MEAN CORPUSCULAR HGB CONC 31.5 g/dl (32.0-36.5); MEAN CORPUSCULAR VOLUME 92.4 fl (80.0-96.0); PLATELET COUNT, AUTOMATED 226 10^3/uL (150-450); RED BLOOD COUNT 5.64 10^6/uL (4.30-6.10); WHITE BLOOD COUNT 10.3 10^3/uL (4.0-10.0)
--- NOTE | 2020-08-24 20:05 | REPVR ---
PROCEDURE INFORMATION: Exam: CT Abdomen And Pelvis Without Contrast Exam date and time: 08/24/2020 7:24 PM Age: 29 years old Clinical indication: Other: Hematuria; Additional info: Hematuria, concern for renal stone TECHNIQUE: Imaging protocol: Computed tomography of the abdomen and pelvis without contrast. Radiation optimization: All CT scans at this facility use at least one of these dose optimization techniques: automated exposure control; mA and/or kV adjustment per patient size (includes targeted exams where dose is matched to clinical indication); or iterative reconstruction. COMPARISON: CT ABD/PEL W/IV CONTRAST ONLY 08/17/2020 9:52 PM FINDINGS: Liver: Normal. No mass. Gallbladder and bile ducts: Normal. No calcified stones. No ductal dilation. Pancreas: Normal. No ductal dilation. Spleen: Normal. No splenomegaly. Adrenal glands: Normal. No mass. Kidneys and ureters: Normal. No hydronephrosis. Stomach and bowel: Unremarkable. No obstruction. No mucosal thickening. Appendix: No evidence of appendicitis. Intraperitoneal space: Surgical clips in the right lower abdomen. Vasculature: Unremarkable. No abdominal aortic aneurysm. Lymph nodes: Unremarkable. No enlarged lymph nodes. Urinary bladder: Unremarkable as visualized. Reproductive: Unremarkable as visualized. Bones/joints: Degenerative changes of the spine. Soft tissues: Small para umbilical hernias containing fat. IMPRESSION: No acute abdominal or pelvic abnormality. Electronically signed by: Frank Lara On 08/24/2020 20:04:44 PM
--- OUTSIDE RECORDS SUMMARY | 2020-08-24 20:21 | CCD ---
Author Author [facility] Organization [facility] Address Unknown Phone Unavailable Care Team Providers Care Behaviorist Name Role Phone Gabriel De La Rosa [...] Unavailable Unavailable EstrellaGabriel ponce MD Unavailable Unavailable Estrella S Lance WAGNER Unavailable Unavailable EstrellaGabriel MD Unavailable Unavailable EstrellaGabriel MD Unavailable Unavailable EstrellaGabriel MD Unavailable Unavailable EstrellaGabriel MD Unavailable Unavailable Estrella S Lance MD Unavailable Unavailable Estrella S Lance WAGNER Unavailable Unavailable Estrella S aLnce WAGNER Unavailable Unavailable Estrella S Lance WAGNER [...] RD Unavailable ALESSIO SOTELO CDN, RD Unavailable MEÑO SLATER PUBLIC HEALTH DOCTOR-C Unavailable Unavailable BRYON, MEÑO LAVERN PUBLIC HEALTH DOCTOR-C Unavailable Unavailable BRYON, MEÑO LAVERN PUBLIC HEALTH DOCTOR-C Unavailable Unavailable BRYON, MEÑO LAVERN PUBLIC HEALTH DOCTOR-C Unavailable Unavailable BRYON, MEÑO LAVERN PUBLIC HEALTH DOCTOR-C Unavailable Unavailable BRYON, MEÑO LAVERN PUBLIC HEALTH DOCTOR-C Unavailable Unavailable BRYON, MEÑO LAVERN PUBLIC HEALTH DOCTOR-C Unavailable Unavailable BRYON, MEÑO LAVERN PUBLIC HEALTH DOCTOR-C Unavailable Unavailable BRYON, MEÑO LAVERN PUBLIC HEALTH DOCTOR-C Unavailable Unavailable BRYON, MEÑO LAVERN PUBLIC HEALTH DOCTOR-C Unavailable Unavailable BRYON, MEÑO LAVERN PUBLIC HEALTH DOCTOR-C Unavailable Unavailable BRYON, MEÑO LAVERN PUBLIC HEALTH DOCTOR-C Unavailable Unavailable BRYON, MEÑO LAVERN PUBLIC HEALTH DOCTOR-C Unavailable Unavailable BRYON, MEÑO LAVERN PUBLIC HEALTH DOCTOR-C Unavailable Unavailable BRYON, MEÑO LAVERN PUBLIC HEALTH DOCTOR-C Unavailable Unavailable VANVALKENBURG, Miroslava MORAN MD Unavailable [...] MD Unavailable Unavailable VANVALKENBURGMiroslava MD Unavailable Unavailable VANVALKENBURG, Miroslava MORAN MD [...] Lionel KAMARA MD Unavailable Unavailable OBLionel ZIEGLER MD Unavailable Unavailable OBLionel ZIEGLER MD Unavailable Unavailable OBLionel ZIEGLER MD Unavailable Unavailable OBLionel ZIEGLER SALVADOR Unavailable Unavailable OBTONEY T SALVADOR Unavailable Unavailable OBTONEY T SALVADOR Unavailable Unavailable OBTONEY T SALVADOR Unavailable Unavailable OBTONEY T SALVADOR Unavailable Unavailable OBLionel ZIEGLER SALVADOR Unavailable Unavailable OBLionel ZIEGLER SALVADOR Unavailable Unavailable OBLionel ZIEGLER SALVADOR Unavailable Unavailable OBLionel ZIEGLER SALVADOR Unavailable Unavailable OBTONEY T SALVADOR Unavailable Unavailable OBTONEY T SALVADOR Unavailable Unavailable OBTONEY T SALVADOR Unavailable Unavailable OBLionel ZIEGLER MD Unavailable Unavailable OBLionel ZIEGLER MD Unavailable Unavailable Lionel KAMARA MD Unavailable Unavailable Lionel KAMARA MD Unavailable Unavailable Lionel KAMARA MD Unavailable Unavailable OBLionel ZIEGLER MD Unavailable Unavailable Lionel KAMARA MD Unavailable [...] Unavailable BOONE, A SANTOS MD Unavailable Unavailable Jonathon SHOOK MD Unavailable Unavailable BOONEJonathon EVANS MD Unavailable Unavailable BOONEJonathon EVANS MD Unavailable Unavailable BOONE, Jonathon GRAHAM MD [...] A KELLEN DPM Unavailable Unavailable Gabriel DAVIS [id number] Unavailable Unavailable OBEN, T SALVADOR MD Unavailable [...] MD Unavailable Unavailable HESTERLETITIA MD Unavailable Unavailable HESTERFLORENCIA COPELANDIK MD Unavailable Unavailable LETITIA HESTER MD Unavailable [...] MD Unavailable Unavailable NO, PCP Unavailable Unavailable BartoszeTherese phelps MS, RPA-C Unavailable Unav ailable Bartoszewski, Therese Morales MS, RPA-C Unavailable Unav ailable Bartoszewski, Therese [...] Carmen MS, RPA-C Unavailable Unav ailable Bartoszewski, Theerse Carmen MS, RPA-C Unavailable Unav ailable Bartoszewski, [...] is protected by Article 27-F of the [facility] Public Health law. If you continue you may have access to information: Regarding HIV / AIDS; Provided by facilities licensed or operated by the [facility] Office of Mental Health; or Provided by the [facility] Office for People With Developmental Disabilities. If such information is present, then the following [facility] mandated warning applies: This information has [...] law may result in a fine or care home sentence or both. A general authorization for the release of medical or other information is NOT sufficient authorization for further disc losure. Allergies and Adverse Reactions Type Description Substance Reaction Status Data Source(s ) No Known Food Allergies No Known Food Allergies [facility] BRANDNAME DILANTIN DILANTIN [facility] Drug allergy CODEINE CODEINE [facility] Drug allergy NAPROXEN NAPROXEN [facility] Family History Family Member Name Family Member Gender Family Member Status Date o f Status Description Data Source(s) Unknown Condition [facility] Unknown Condition [facility] Unknown Condition [facility] Unknown Condition [facility] Unknown Condition [facility] Unknown Condition [facility] Unknown Condition [facility] Unknown Condition [facility] Unknown Condition [facility] Encounters Encounter Providers Location Date Indications Data Source(s ) Outpatient Attender: SANTOS SHOOK MD 11/28/2020 12:00:0 0 AM [facility] Outpatient Attender: LAVERN Lu/Yonathan/Nancy segovia 08/17/2020 12:15:00 PM EST MEDENT ([facility] [place] [address] [address] 08/15/2020 12:00:00 AM EST [facility] [place] [address] [address] 08/10/2020 12:00:00 AM EST eCW1 ([facility]) Outpatient Attender: MADISON PEPE 07/17/2020 12:00:00 A M [facility] Outpatient Attender: KOTA SIERRA MD [id number] 06/28/2020 12:00:00 AM EST Primary osteoarthritis, right ankle and foot [facility] Primary osteoarthritis, right ankle and foot Outpatient Attender: MADISON PEPE 06/26/2020 12:00:00 A M [facility] Outpatient [address] [address] 06/12/2020 12:00:00 AM EST eCW1 ([facility]) Outpatient Attender: SANTOS SHOOK MD [id number] 04/2020 12:00:00 AM [facility] - 06/06/2020 02:43:30 PM EST Post-traumatic bulbous urethral stricture [facility] Post-traumatic bulbous urethral strictur e Outpatient Attender: MADISON PEPE 06/05/2020 12:00:00 A M [facility] Outpatient Attender: Shannan Negrete MDConsultant: LETITIA HESTER MD 06/01/2020 01:00:00 PM [facility] - 06/01/2020 01:00:00 PM [facility] Outpatient Attender: MADISON PEPE 05/24/2020 12:00:00 A M [facility] [place] [address] [address] 05/22/2020 12:00:00 AM EDT eCW1 ([facility]) [place] [address] [address] 05/22/2020 12:00:00 AM EDT eCW1 ([facility]) [place] [address] [address] 05/18/2020 12:00:00 AM EDT eCW1 ([facility]) Outpatient [address] [address] 05/15/2020 12:00:00 AM EDT eCW1 ([facility]) Outpatient Attender: SANTOS SHOOK MD [id number] 12:00:00 AM EDT - 05/09/2020 02:16:06 PM [facility] Outpatient Referrer: ADITYA TANG 04/26/2020 12:00:00 AM EDT Primary osteoarthritis, right ankle and [facility] Primary osteoarthritis, right ankle and foot Outpatient Referrer: ADITYA TANG 04/26/2020 12:00:00 AM EDT Primary osteoarthritis, right ankle and [facility] Primary osteoarthritis, right ankle and foot Outpatient Attender: ADITYA TANG [id number] 04/26/2020 12:00:00 AM EDT Primary osteoarthritis, right ankle [facility] Primary osteoarthritis, right ankle and foot Outpatient Attender: Shannan Negrete MDConsultant: LETITIA HESTER MD 04/20/2020 02:36:00 PM EDT - 04/20/2020 02:36:00 PM T [facility] Outpatient Attender: LETITIA HESTER MDConsultant: LETITIA Madison MD 04/05/2020 10:11:00 AM EDT - 04/05/2020 10:11:00 AM [facility] Outpatient Attender: SERAFIN GEORGES MDConsultant: LETITIA Madison MD 03/29/2020 01:51:00 PM EDT - 03/29/2020 01:51:00 PM T [facility] Outpatient Attender: LETITIA HESTER MDConsultant: LETITIA Madison MD 03/27/2020 12:49:00 PM EDT - 03/27/2020 12:49:00 PM EDT [facility] Outpatient Attender: KOTA SIERRA MD 03/24/2020 12: 00:00 AM EDT [facility] Emergency Attender: CLEO GRUBERConsultant: LETITIA Madison MD 03/22/2020 03:26:00 PM EDT - 03/22/2020 05:25:00 PM EDT [facility] Patient discharged. Outpatient Attender: ALTAGRACIA DVAIS [id number]: LETITIA HANSEN MD [facility]: KOTA SIERRA MD 03/15/2020 12: 00:00 AM [facility] Emergency Attender: HITESH MELGAR MDConsultant: LETITIA HESTER MD 03/09/2020 05:46:00 PM EDT - 03/10/2020 12:45:00 AM EDT [facility] Patient discharged. Outpatient Attender: LETITIA HESTER MD Family Practice 02/23/2020 1 1:00:00 AM EDT [facility] ([facility]) Outpatient Attender: LETITIA HESTER MDConsultant: LETITIA Madison MD 02/23/2020 10:36:00 AM EDT - 02/23/2020 10:36:00 AM EDT [facility] Outpatient Attender: ORBERT TAMAYO MDReferrer: ROBERT TAMAYO MD MOB-MOB.PAT 02/04/2020 10:47:57 AM EDT - 02/04/2020 11:35:59 AM EDT [facility] Outpatient Attender: ROBERT TAMAYO MDReferrer: ROBERT TAMAYO MD MOB-MOB.PAT 02/04/2020 10:12:45 AM EDT - 02/04/2020 10:12:49 AM EDT [facility] SDC Attender: ROBERT TAMAYO MDAdmitter: ROBERT TAMAYO MD ES1-OR 02/02/2020 10:39:51 AM EDT - 02/09/2020 05:00:00 PM EDT [facility] Patient discharged. Outpatient Referrer: ROBERT TAMAYO MD 01/31/2020 01:06:48 P M EDT [facility] Emergency Attender: MILAGROS MORSE MDConsultant: LETITIA Madison MD 01/27/2020 11:08:00 AM EDT - 01/27/2020 01:46:00 PM EDT [facility] Patient discharged. Outpatient Attender: Lance De La Rosa MD Main Office 01/18/2020 02:15:00 PM EDT [facility] Outpatient Attender: LETITIA HESTER MDConsultant: LETITIA Madison MD 01/17/2020 09:33:00 AM EDT - 01/17/2020 10:33:00 AM EDT [facility] Emergency Attender: MILAGROS MORSE MDConsultant: LETITIA Madison MD 01/13/2020 01:42:00 PM EDT - 01/13/2020 05:54:00 PM EDT [facility] Patient discharged. Outpatient Attender: LETITIA HESTER MD [facility] 01/12/2020 0 1:20:00 PM EDT [facility] ([facility]) Outpatient Attender: LETITIA HESTER MDConsultant: LETITIA Madison MD 01/12/2020 12:32:00 PM EDT - 01/12/2020 12:32:00 PM EDT [facility] Outpatient Attender: SALVADOR KAMARA MDConsultant: LETITIA HESTER MD 12/31/2019 08:45:00 AM EDT - 12/31/2019 11:35:00 AM EDT [facility] Patient discharged. Outpatient Attender: Carmen Biswas MS, RPA-CConsultan t: LETITIA HESTER MD 12/28/2019 09:05:00 AM EDT - 12/28/2019 09:15:00 AM EDT [facility] Patient discharged. Outpatient Attender: SALVADOR KAMARA MDConsultant: LETITIA HESTER MD 12/15/2019 11:32:18 AM EDT [facility] Outpatient Attender: ALESSIO RG, RDConsultant: LETITIA HESTER MD 12/14/2019 12:59:00 PM EDT - 12/14/2019 12:59:00 PM EDT [facility] Outpatient Attender: SALVADOR SNOWonsultant: LETITIA HESTER MD 12/13/2019 02:57:37 PM EDT - 12/14/2019 12:20:00 PM EDT [facility] Patient discharged. Outpatient Attender: LETITIA HESTER MDConsultant: LETITIA Madison MD 11/29/2019 10:16:00 AM EDT - 12/16/2019 08:54:00 AM EDT [facility] Patient discharged. Outpatient Attender: LETITIA HESTER MDConsultant: LETITIA Madison MD 11/25/2019 12:56:00 PM EDT - 11/25/2019 12:56:00 PM EDT [facility] Outpatient Attender: SALVADOR KAMARA MDConsultant: LETITIA HESTER MD 11/23/2019 11:13:00 AM EDT - 11/23/2019 11:13:00 AM EDT [facility] Outpatient Attender: SALVADOR KAMARA MD Family Practice 11/23/2019 08:15:0 0 AM EDT [facility] ([facility]) Outpatient Attender: LETITIA HESTER MDConsultant: LETITIA Madison MD 11/19/2019 10:35:00 AM EDT - 11/19/2019 11:36:00 AM EDT [facility] Outpatient Attender: LETITIA HESTER MD Family Practice 11/18/2019 0 3:00:00 PM EDT MED[facility] ([facility]) Outpatient Attender: LETITIA HESTER MDConsultant: PCP NO 11/18/2019 02:08:00 PM EDT - 11/18/2019 02:08:00 PM EDT [facility] Emergency Attender: YI CASSIDY MDConsultant: PCP NO 10/21/2019 03:31:00 PM EDT - 10/21/2019 05:41:00 PM EDT [facility] Patient discharged. Outpatient Attender: KOTA SIERRA MD 10/15/2019 12: 00:00 AM [facility] OutpatientEST-LEVEL 4 Attender: [facility] 10/06/2019 02:30:00 PM EDT - 10/06/2019 02:30:00 PM EDT Nail dystrophyUnspecified osteoarthritis, unspecified site [facility] Nail dystrophy Unspecified osteoarthritis, unspecified site Outpatient Attender: Kota Cardonaerrer: Kota Anderson MD 09/14/2019 03:48:00 PM EST - 09/14/2019 04:28:00 PM EST [facility] Outpatient Attender: Lance Boo: Kota collins MD 08/12/2019 01:49:[address] [facility] Immunizations Vaccine Date Status Description Data Source(s) This CVX code allows reporting of a vacc ination when formulation is unknown (for example, when recording a Influenza vaccination when noted on a vaccination card) 07/19/2019 12:00:00 AM EST completed influenza, injectable , [facility] This CVX code allows reporting of a vacc ination when formulation is unknown (for example, when recording a Influenza vaccination when noted on a vaccination card) 07/19/2019 12:00:00 AM EST completed influenza, injectable , [facility] Medications Medication Brand Name Start Date Product Form Dose Route Admi nistrative Instructions Pharmacy Instructions Status Indications Reaction Description Data Source(s[place] [facility] [place] [facility]DURABLE MEDICAL EQUIPMENT SEE SIG) XX [facility] 97 [id number] 06/28/2020 12:00:00 AM EST active Use as directed. Roll A Bout Knee Scooter Dx: [facility] Clindamycin 0.01 MG/MG Topical Gel Clindamycin Phospha te 1 % Clindamycin Phosphate 1 % 06/12/2020 12:00:00 AM EST 1.0 {application} active Clindamycin Phosphate 1 % eCW1 ([facility]) lidocaine (XYLOCAINE) 2 % urojet 20 mL [id number] 0 01:30:00 PM EST 20 mL Urethral completed 20 mL, Urethr al, Once, 06/06/20 at 1330, For 1 dose [facility] Medication administered onsite Cephalexin 500 MG Oral Capsule cephALEXin (KEFLEX) cap gt 500 mg cephALEXin (KEFLEX) capsule 500 mg 06/06/2020 01:30:00 PM EST 500 mg Oral completed 500 mg, Oral, Once, 06/06/20 at 1330 , For 1 [facility] Medication administered onsite alclometasone dipropionate 0.5 MG/ML Top ical Cream Alclometasone Dipropionate 0.05 % Alclometasone Dipropionate 0.05 % 05/15/2020 12:00:00 AM EDT 1.0 {application} active Alclometasone Dipr opionate 0.05 % eCW1 ([facility]) ciclopirox 10 MG/ML Medicated Shampoo Ciclopirox 1 % Ciclopi oneil 1 % 05/15/2020 12:00:00 AM EDT 1.0 {application} active Ciclopirox 1 % eCW1 ([facility]) ciclopirox 10 MG/ML Medicated Shampoo Ciclopirox 1 % Ciclopi oneil 1 % 05/15/2020 12:00:00 AM EDT 1.0 {application} active Ciclopirox 1 % eCW1 ([facility]) Doxycycline Monohydrate 50 MG Oral Capsule Doxycycline Monoh ydrate 50 MG 05/15/2020 12:00:00 AM EDT 1.0 {capsule} active Doxycycline Monohydrate 50 MG eCW1 ([facility]) alclometasone dipropionate 0.5 MG/ML Top ical Cream Alclometasone Dipropionate 0.05 % Alclometasone Dipropionate 0.05 % 05/15/2020 12:00:00 AM EDT 1.0 {application} active Alclometasone Dipr opionate 0.05 % eCW1 ([facility]) Doxycycline Monohydrate 50 MG Oral Capsule Doxycycline Monoh ydrate 50 MG 05/15/2020 12:00:00 AM EDT 1.0 {capsule} active Doxycycline Monohydrate 50 MG eCW1 ([facility]) alclometasone dipropionate 0.5 MG/ML Top ical Cream Alclometasone Dipropionate 0.05 % Alclometasone Dipropionate 0.05 % 05/15/2020 12:00:00 AM EDT 1.0 {application} active Alclometasone Dipr opionate 0.05 % eCW1 ([facility]) ciclopirox 10 MG/ML Medicated Shampoo Ciclopirox 1 % Ciclopi oneil 1 % 05/15/2020 12:00:00 AM EDT 1.0 {application} active Ciclopirox 1 % eCW1 ([facility]) alclometasone dipropionate 0.5 MG/ML Top ical Cream Alclometasone Dipropionate 0.05 % Alclometasone Dipropionate 0.05 % 05/15/2020 12:00:00 AM EDT 1.0 {application} active Alclometasone Dipr opionate 0.05 % eCW1 ([facility]) ciclopirox 10 MG/ML Medicated Shampoo Ciclopirox 1 % Ciclopi oneil 1 % 05/15/2020 12:00:00 AM EDT 1.0 {application} active Ciclopirox 1 % eCW1 ([facility]) Doxycycline Monohydrate 50 MG Oral Capsule Doxycycline Monoh ydrate 50 MG 05/15/2020 12:00:00 AM EDT 1.0 {capsule} active Doxycycline Monohydrate 50 MG eCW1 ([facility]) Doxycycline Monohydrate 50 MG Oral Capsule Doxycycline Monoh ydrate 50 MG 05/15/2020 12:00:00 AM EDT 1.0 {capsule} active Doxycycline Monohydrate 50 MG eCW1 ([facility]) Docusate Sodium 100 MG Oral Capsule [DOK] DOK 100 MG O ral Capsule DOK 100 MG Oral Capsule 04/07/2020 12:00:00 AM EDT 100 mg Oral activ e Take 100 mg by mouth daily [facility] Desvenlafaxine Succinate ER 100 MG Oral Tablet Extended Release 24 Hour (PRISTIQ) [id number] 04/07/2020 12:00:00 AM EDT Oral active Take by mouth daily [facility] Nystatin 100 UNT/MG Topical Powder Nysta tin [id number] UNIT/GM External Powder (MYCOSTATIN) Nystatin [id number] UNIT/GM External Powder (MYCOSTATIN) 0 03/27/2020 12:00:00 AM EDT active APPLY TO AFFECTED AREA S TWO TIMES A DAY ABDOMINAL FOLDS [facility] heparin (porcine) injection 5,000 Units [id number] 02/09/20 05:00:00 PM EDT 5000 U Subcutaneous active 5,000 Units , Subcutaneous, Every 8 hours (scheduled), First dose on Fri02/09/20 at 1700, Post-op
If platelet count is less than 100,000 or hematocrit is less than 25, or if there is a 5 point decrea se in hematocrit, do not give the dose and call physician/designee.
[facility] Medication administered onsite dextrose 5 % and sodium chloride 0.9 % infusion [id number] 02/09/2020 05:00:00 PM EDT Intravenous active at 1 00 mL/hr, Intravenous, Continuous, Starting Fri02/09/20 at 1700, Post-op
Hep lock with good PO
[facility] Medication administered onsite Oxycodone Hydrochloride 5 MG Oral Tablet oxyCODONE (ROXICODONE) immediate release tablet 5 mg oxyCODONE (ROXICODONE) immediate release tablet 5 mg 02/09/2020 04:27:42 PM EDT 5 mg Oral active 5 mg, Oral, Every 4 hours PRN, moderate pain (4-6), Starting Fri02/09/20 at 1627, For 7 days, Post-op [facility] Medication administered onsite ondansetron (ZOFRAN) injection 4 mg [id number] 02/09/2020 04:27:4 2 PM EDT 4 mg Intravenous active 4 mg, In travenous, Every 6 hours PRN, nausea, vomiting, Starting Fri02/09/20 at 1627, Post-op [facility] Medication administered onsite Magnesium Chloride 0.01786 MEQ/ML / Pota ssium Chloride 0.0497 MEQ/ML / Sodium Acetate 0.0163 MEQ/ML / Sodium Chloride 0.0899 MEQ/ML / Sodium gluconate 5.02 MG/ML Injectable Solution [Normosol-R] electrolyte-R (NORMOSOL-R/PLASMALYTE-R) solution electrolyte-R (NORMOSOL-R/PLASMALYTE-R) solution 02/08 04:00:00 PM EDT Intravenous active at 1 00 mL/hr, Intravenous, Continuous, Starting Fri02/09/20 at 1600, PACU & Post-op [facility] Medication administered onsite normal saline flush 0.9 % injection 3 mL [id number] 02/09/2020 04:00:00 PM EDT 3 mL Intravenous active 3 mL , Intravenous, Every 8 hours (scheduled), First dose on Fri02/09/20 at 1600, PACU (only)
flush per protocol, D/C Main IV fluid if appropriate
[facility] Medication administered onsite 10 ML Atropine [...] or 0.04 mg/kg. Max of 6 doses
[facility] Medication administered onsite fentaNYL Citrate (PF) (SUBLIMAZE) injection 25 mcg [id number] 02/09/2020 02:45:03 PM EDT 25 ug Intravenous completed 25 mcg, Intravenous, Every 5 min PRN, moderate pain (4-6), Starting Fri02/09/20 at 1445, For 4 doses, PACU (only) [facility] Medication administered onsite normal saline flush 0.9 % injection 3 mL [id number] 02/09/2020 02:00:00 PM EDT 3 mL Intravenous active 3 mL , Intravenous, Every 8 hours (scheduled), First dose on Fri02/09/20 at 1400, Pre-op
Rapid push positive pressure flushing shall be performed with a 10 cc normal saline syringe to check the PATENCY of a PIV site prior to any infusion therapy initiation unless resistance is met.
[facility] Medication administered onsite Oxycodone Hydrochloride 5 MG Oral Tablet oxyCODONE (ROXICODONE) 5 MG immediate release tablet oxyCODONE (ROXICODONE) 5 MG immediate release tablet 0 02/09/2020 12:00:00 AM EDT 5 mg Oral active Take 1 tablet (5 mg total) by mouth every 6 (six) hours as needed for pain Max Daily Amount: 20 mg [facility] Levetiracetam 500 MG Oral Tablet [Keppra] Keppra 01/20/2020 12:00 :00 AM EDT ORAL active [facility] ([facility]) montelukast 10 MG Oral Tablet Montelukast Sodium 11/22/2019 12:00:00 AM EDT ORAL active [facility] ([facility]) Docusate Sodium 100 MG Oral Capsule [Colace] Colace 12:00:00 AM EDT ORAL active MED[facility] ( [facility]) 750 mg 09/14/2019 12:00:00 AM EST tablet 60 TAKE ONE TABLET BY MOUTH FOUR TIMES A DAY NEEDED FOR SPASMS MAXIMUM DAILY DOSE = FOUR TABLETS USE SPARINGLY AND ONLY NEEDED FOR PAIN TAKE ONE TABLET BY MOUTH FOUR TIMES A DAY NEEDED FOR SPASMS MAXIMUM DAILY DOSE = FOUR TABLETS USE SPARINGLY AND ONLY NEEDED FOR PAIN SOLD: 09/14/2019 [facility] Mirtazapine 15 MG Oral Tablet Mirtazapine 08/30/2019 09:14:43 AM EST 15 MG active [facility] Methocarbamol 750 MG Oral Tablet Methocarbamol 08/30/2019 09:12:29 AM EST 750 MG active [facility] 750 mg 08/30/2019 12:00:00 AM EST tablet [...] 09:11:55 AM EST 50 MG active [facility] cetirizine hydrochloride 10 MG Oral Capsule Cetirizine Cetir izine 08/19/2019 09:11:50 AM EST 10 MG active L [facility] 10 mg 08/19/2019 12:00:00 AM EST [...] 020 02:39:04 PM EST [address] [facility] 750 mg 07/18/2019 12:00:00 AM EST tablet [...] 07/13/2019 03:23:25 PM EST 750 MG completed [facility] 750 mg 07/06/2019 12:00:00 AM EST tablet 60 TAKE ONE TABLET BY MOUTH FOUR TIMES A DAY TAKE ONE TABLET BY MOUTH FOUR TIMES A DAY SOLD: 07/06/2019 [facility] Methocarbamol 750 MG Oral Tablet Methocarbamol 07/05/2019 04:44:44 PM EST 750 MG completed [facility] 100 mg 06/04/2019 12:00:00 AM EST tablet [...] Methocarbamol 06/03/2019 08:54:31 AM EST 750 MG [facility] Mirtazapine 15 MG Oral Tablet Mirtazapine 06/01/2019 02:30:05 PM EST 15 MG [facility] 15 mg 06/01/2019 12:00:00 AM EST tablet 30 TAKE ONE TABLET BY MOUTH EVERY DAY TAKE ONE TABLET BY MOUTH EVERY DAY SOLD: 07/26/2019 [facility] 15 mg 06/01/2019 12:00:00 AM EST tablet 30 TAKE ONE TABLET BY MOUTH EVERY DAY TAKE ONE TABLET BY MOUTH EVERY DAY SOLD: 06/30/2019 [facility] Methylprednisolone Methylprednisolone 05/31/2019 06:14:06 PM EST 0 [facility] cetirizine hydrochloride 10 MG Oral Capsule Cetirizine Cetir izine 05/17/2019 09:13:30 AM EDT 10 MG [facility] Doxycycline Monohydrate 50 MG Oral Capsule Doxycycline Monoh ydrate 05/17/2019 09:13:09 AM EDT 50 MG [facility] 600 mg 05/17/2019 12:00:00 AM EDT [...] 019 12:59:00 PM EDT 200 MG completed [facility]. Devices (DURABLE MEDICAL EQUIPMENT SEE SIG) [facility] [id number] 10/09/2018 12:00:00 AM EDT aborted Use as directed. Rolling walker with seat Dx: Right ankle arthritis [facility] gabapentin 100 MG Oral Capsule gabapentin (NEURONTIN) 100 MG capsule gabapentin (NEURONTIN) 100 MG capsule 03/03/2018 12:00:00 AM EDT 100 mg Oral aborted Take 100 mg by mouth Daily [facility] maalox/lidocaine/diphenhydrAMINE (RADIATION MIXTURE) 1:1:1 o ral suspension 05/29/2017 12:00:00 AM EDT 10 mL Swish & Spit aborted Swish and spit 10 mLs every 2 (two) hours as needed (For Mouth Pain)Pharmacy compound: Maalox, lidocaine viscous 2 %, Benadryl 12.5 mg/5 mL [facility] PARoxetine (PAXIL) 30 MG tablet [address]-3 30 mg Oral aborted Take 30 mg by mouth every morning [facility] Melatonin 3 MG Oral Tablet melatonin 3 MG tablet melatonin 3 MG table t 5 mg Oral aborted Take 5 mg by m outh nightly Indications: Pt takes two tabs nightly [facility] doxycycline hyclate 50 MG Oral Capsule doxycycline ( BRAMYCIN) 50 MG capsule doxycycline (VIBRAMYCIN) 50 MG capsule 100 mg Oral aborted Take 100 mg by mouth every morning [facility] Insurance Providers Payer name Policy type / Coverage type Policy ID Covered green party ID Covered green party's relationship to de la rosa Policy [place] Plan Information HC COMMUNITY PLAN [facility] [id number] SP [id number] [facility] P [id number] S [id number] UNHC COMMUNITY PLAN MCDHMO [id number] SP [id number] UNHC COMMUNITY PLAN MCDHMO [id number] SP [id number] UHC I [id number] Self [id number] UHC COMMUNTY PLAN [id number] 18 [id number] UNHC COMMUNITY PLAN XIX [id number] 18 [id number] UNHC COMMUNITY PLAN MCDHMO [id number] SP [id number] UH MEDICAID [id number] [facility] MEDICAID [id number] Sepideh [id number] INSURANCE COVID-19 COVID Sepideh C OVID INSURANCE COVID-19 [id number] 2 [id number] BLUE CROSS BLUE SHIELD-O/P [id number] UNHC COMMUNITY PLAN XIX -RECURRING [id number] 18 [id number] [facility] Community Plan [id number] 99 [id number] STPP Wrap [id number] UnitedHealthcare Other 0 Self 0 UnitedHealthcare Other 0 Self 0 UnitedHealthcare Other 0 Self 0 [facility] MEDICAID PI PI MEDICAID [id number] Sepideh [id number] UnitedHealthcare Other 0 Self 0 UnitedHealthcare Other 0 Self 0 UnitedHealthcare Other 0 Self 0 [place] Medig[place] Part [place] [id number] Self [id number] Hmo Blue Option/Medicaid Health Maintenance Organization (HMO) [id number] Self [id number] [facility] Health Maintenance Organization (HMO) [id number] Self [id number] [place] [id number] Self [id number] Hmo Blue Option/Medicaid Health Maintenance Organization (HMO) [id number] Self [id number] Medicaid Medicaid [id number] Self [id number] [facility]hc-Community Plan Commercial [id number] Self [id number] [place] Medigap Part [place] [id number] Family Dependent [id number] [facility] Community Plan Commercial [id number] Self [id number] UnitedHealthcare Other 0 Self 0 UNHC COMMUNITY PLAN MCDHMO [id number] SP [id number] [place] Med[place] [id number] Self [id number] Hmo Blue Option/Medicaid Health Maintenance Organization (HMO) [id number] Self [id number] [employer] Paul/MCR Health Maintenance Organization (HMO) [id number] Self [id number] Community Plan - [facility] Commercial [id number] Self [id number] Community Plan - [facility] Commercial [id number] Self [id number] UnitedHealthcare Other 0 Self 0 Medicaid [id number] Community Plan - [facility] Commercial [id number] Self [id number] [facility] [id number] Community Plan - [facility] Commercial Self [employer] Paul/MCR Medigap Part B [place] Medigap Part B Self Hmo Blue Option/Medicaid Health Maintenance Organization (HMO) Self [facility] [id number] UHC PLUS PAUL COMMUNITY PLAN [id number] SELF [id number] RuiYi PAUL [id number] SELF [id number] [facility] [id number] Patient [id number] [facility] [id number] Patient [id number] SELF PAY UNAVAILABLE SELF UNAVAILA BLE Medicaid Medicaid Self Uhc-Community Plan Commercial Self MEDICAID M [id number] Self [id number] [facility](MCAID) P [id number] S [id number] [facility](MCAID) P [id number] S [id number] [facility] MEDICAID 7 [id number] 1 [id number] SELFPAY 5 UNAVAILABLE 1 UNAVAILA BLE MEDICAID 3 [id number] BLUE CHOICE OPTIONS 7 [id number] MEDICAID W [id number] S [id number] BLUE CHOICE OPTION O [id number] S [id number] BLUE CROSS BERMAN PLAN [id number] SP [id number] BLUE CROSS BERMAN PLAN [id number] SP [id number] MEDICAID [id number] SP [id number] HMO BLUE [id number] FA2 [id number] UNAVAILABLE UNAVAILA BLE Problems, Conditions, and Diagnoses Code Display Name Description Problem Type Effective Dates Data Source(s) 49061061 Essential hypertension Essential hypertension Problem 08/23/2020 12:00:00 AM [facility] ([facility], ) J45.20 [id number] Mild intermittent asthma without complica tion Problem 08/03/2020 12:00:00 AM EST eCW1 ([facility]ly [facility]) Z68.43 084115294 BMI 50.0-59.9, adult Problem 08/03/2020 12:0 0:00 AM EST eCW1 ([facility]ly [facility]) G47.33 [id number] Obstructive sleep apnea Problem 08/03/2020 1 2:00:00 AM EST [facility] ([facility]) G40.909 [id number] Seizure disorder Problem 08/03/2020 12:00:00 AM EST eCW1 ([facility]) 12330080 Abdominal pain Abdominal pain Problem 01/18/2020 12:00: 00 AM EDT [facility] ([facility]) [id number] Essential hypertension Essential hypertension Problem 11/18/2019 12:00:00 AM EDT [facility] ([facility]) S92.101S Unspecified fracture of right talus, seq uela Unspecified fracture of right talus, sequela Diagnosis 06/28/2020 07:03:06 AM [facility] M19.071 Primary osteoarthritis, right ankle and foot Primary osteoarthritis, right ankle and foot Diagnosis 06/28/2020 07:03:06 AM [facility] [id number] Encounter for other preprocedural examin ation Encounter for other preprocedural examination Diagnosis 04/20/2020 02:36:00 PM EDT [facility] H6123 Impacted cerumen, bilateral Impacted cerumen, bilatera l Diagnosis 04/05/2020 10:11:00 AM EDT [facility] R1033 Periumbilical pain Periumbilical pain Diagnosis 08/2019 01:51:00 PM EDT [facility] H6122 Impacted cerumen, left ear Impacted cerumen, left ear Diagnosis 03/27/2020 12:49:00 PM EDT [facility] Z6843 Body mass index (BMI) 50.0-59.9, adult B santos mass index (BMI) 50.0-59.9, adult Diagnosis 03/27/2020 12:49:00 PM EDT [facility] E669 Obesity, unspecified Obesity, unspecified Diagnosis 03/27/2020 12:49:00 PM EDT [facility] R569 Unspecified convulsions Unspecified convulsions Diagno sis 03/27/2020 12:49:00 PM EDT [facility] B372 Candidiasis of skin and nail Candidiasis of skin and n ail Diagnosis 03/27/2020 12:49:00 PM EDT [facility] R1030 Lower abdominal pain, unspecified Lower abdomina l pain, unspecified Diagnosis 03/27/2020 12:49:00 PM EDT [facility] W24447 Unspecified asthma, uncomplicated Unspecified as thma, uncomplicated Diagnosis 03/22/2020 03:26:00 PM EDT [facility] G8929 Other chronic pain Other chronic pain Diagnosis 03:26:00 PM EDT [facility] R78039 Personal history of nicotine dependence Personal history of nicotine dependence Diagnosis 03/09/2020 05:46:00 PM EDT [facility] K2970 Gastritis, unspecified, without bleeding Gastritis, unspecified, without bleeding Diagnosis 03/09/2020 05:46:00 PM EDT [facility] R109 Unspecified abdominal pain Unspecified abdominal pain Diagnosis 03/09/2020 05:46:00 PM EDT [facility] R631 Polydipsia Polydipsia Diagnosis 02/23/2020 10:36:00 AM ED T [facility] R358 Other polyuria Other polyuria Diagnosis 02/23/2020 10:36: 00 AM EDT [facility] J449 Chronic obstructive pulmonary disease, u nspecified Chronic obstructive pulmonary disease, unspecified Diagnosis 02/23/2020 10:36:00 AM EDT [facility] K43.2 Incisional hernia without obstruction or gangrene Incisional hernia without obstruction or Diagnosis 02/09/2020 08:51:00 AM EDT [facility] K43.0 Incisional hernia with obstruction, with out gangrene Incisional hernia with obstruction, with Diagnosis 02/09/2020 08:51:00 AM EDT [facility] J98.8 Other specified respiratory disorders Ot her specified respiratory disorders Diagnosis 02/04/2020 10:12:45 AM EDT [facility] U07.1 COVID-19 COVID-19 Diagnosis 02/04/2020 10:12:45 AM ED T [facility] K429 Umbilical hernia without obstruction or gangrene Umbilical hernia without obstruction or gangrene Diagnosis 01/27/2020 11:08:00 AM EDT [facility] K70249 Epilepsy, unspecified, not intractable, without status epilepticus Epilepsy, unspecified, not intractable, without status epilepticus Diagnosis 01/13/2020 01:42:00 PM T [facility] 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, thoracolumbar region Spondylolysi s, thoracolumbar region Diagnosis 01/12/2020 12:32:00 PM EDT [facility] R0789 Other chest pain Other chest pain Diagnosis 01/12/2020 12 :32:00 PM EDT [facility] E99812 Other urethral stricture, male, unspecif ied site Other urethral stricture, male, unspecified site Diagnosis 12/31/2019 08:45:00 AM [facility] R3121 Asymptomatic microscopic hematuria Asymptomatic microscopic hematuria Diagnosis 12/31/2019 08:45:00 AM [facility] Z1159 Encounter for screening for other viral diseases Encounter for screening for other viral diseases Diagnosis 12/28/2019 09:05:00 AM [facility] Z713 Dietary counseling and surveillance Dietary coun seling and surveillance Diagnosis 12/14/2019 12:59:00 PM [facility] R99 Ill-defined and unknown cause of mortali ty Ill-defined and unknown cause of mortality Diagnosis 12/14/2019 12:20:00 PM [facility] M6281 Muscle weakness (generalized) Muscle weakness (general ized) Diagnosis 11/29/2019 10:16:00 AM [facility] M545 Low back pain Low back pain Diagnosis 11/29/2019 10:16:00 AM [facility] E785 Hyperlipidemia, unspecified Hyperlipidemia, unspecifie d Diagnosis 11/25/2019 12:56:00 PM [facility] K5900 Constipation, unspecified Constipation, unspecified Di agnosis 11/25/2019 12:56:00 PM [facility] K219 Gastro-esophageal reflux disease without esophagitis Gastro-esophageal reflux disease without esophagitis Diagnosis 11/25/2019 12:56:00 PM ED T [facility] F82585 Other spondylosis, thoracic region Other spondyl osis, thoracic region Diagnosis 11/19/2019 10:35:00 AM EDT [facility] I43227 Other spondylosis, lumbar region Other spondylos is, lumbar region Diagnosis 11/19/2019 10:35:00 AM EDT [facility] Z1331 Encounter for screening for depression E ncounter for screening for depression Diagnosis 11/18/2019 02:08:00 PM EDT [facility] J309 Allergic rhinitis, unspecified Allergic rhinitis, unsp ecified Diagnosis 11/18/2019 02:08:00 PM EDT [facility] R310 Gross hematuria Gross hematuria Diagnosis 10/21/2019 03:3 1:00 PM EDT [facility] R300 Dysuria Dysuria Diagnosis 10/21/2019 03:31:00 PM ED T [facility] Surgeries/Procedures Procedure Description Date Indications Data Source(s) SURGERY CASE REQUEST OUTSIDE FACILITY ONLY SURGERY CA SE REQUEST OUTSIDE FACILITY ONLY Routine 06/28/2020 1:27 PM EST Arthritis of right subtalar joint Closed displaced fracture of right talus, unspecified fracture morphology, sequela 06/28/2020 01:27:23 PM EST Closed displa loyd fracture of right talus, unspecified fracture morphology, sequelaArthritis of right subtalar joint [facility] Closed displaced fracture of right talus , unspecified fracture morphology, sequela Arthritis of right subtalar joint BLOOD TYPING ABO TYPE AND SCREEN Routine 02/09/2020 12:30 PM EDT 02/09/2020 04:30:00 PM EDT [facility] ECG ROUTINE ECG W/LEAST 12 LDS TRCG ONLY W/O I&R ECG 12-LEAD Routine 02/04/2020 11:34 AM EDT Incisional hernia with obstruction 02/04/2020 03:34:20 PM ED T Incisional hernia with obstruction [facility] Incisional hernia with obstruction BLOOD COUNT COMPLETE AUTOMATED CBC Routine 0 11:30 AM EDT Incisional hernia with obstruction 02/04/2020 03:30:00 PM ED T Incisional hernia with obstruction [facility] Incisional hernia with obstruction BASIC METABOLIC PANEL CALCIUM TOTAL BASIC METABOLIC PANEL Routi ne 02/04/2020 11:30 AM EDT Incisional hernia with obstruction 02/04/2020 03:30:00 PM ED T Incisional hernia with obstruction [facility] Incisional hernia with obstruction Medical Nutrition Therapy Assmnt Interv Face To Face 15 Min 12/14/2019 12:00:00 AM EDT [facility] ([facility]) Brief Emotional/Behav Assessment W/ Scoring Doc Per Standard Inst 11/18/2019 12:00:00 AM EDT [facility] ([facility]) EST-LEVEL 4 10/06/2019 12:00:00 AM EDT - 10/06/2019 1 2:00:00 AM EDT [facility] ([facility]) Debridement, nails, 6 or more, any method 10/06/2019 12:00:00 AM EDT - 10/06/2019 12:00:00 AM EDT [facility] ([facility]) Results ID Date Data Source [id number] 08/09/2020 02:33:00 PM EST [facility] Name Value Range Interpretation Code Description Data Giovana rce(s) Supporting Document(s) SARS-CoV-2 (COVID 19) NEGATIVE - SARS-CoV-2 (COVID19) [facility] This lab was ordered by [facility] a nd reported by [facility]. ID Date Data Source [id number] 07/31/2020 05:40:00 PM EST [facility] Name Value Range Interpretation Code Description Data Giovana rce(s) Supporting Document(s) SARS coronavirus 2 RNA [Presence] in Res piratory specimen by TYRON with probe detection [facility] This lab was ordered by [facility] a nd reported by [facility]. ID Date Data Source [id number] 06/28/2020 01:51:39 PM EST [facility] Name Value Range Interpretation Code Description Data Giovana rce(s) Supporting Document(s) Progress Note [facility] MDELRk1vTjSXCxUi79/RXNurIIPls0PiVGfdBZk4XDbhARGqG8HkMEX3yZ7xTIF3CYyLVnJdJeBnWdCw [facility] [file] ICAgICAgICAgICAgICAgICAgICAgICAgICAgICAgICAgICAgICAgICAgICAgICAgICAgICAgICAgICAg ICAgICAgICAgICAgICAgICAgICAgICANCiAgICAgIC AgICAgICAgICAgICAgICAgICAgICAgICAgICAgICAgICAgICAgICAgICAgICAgICAgICAgICAgICAgIC AgICAgICAgICAgICAgICAgICAgICAgICAgICAgICAgICANCiAgICAgICAgICAgICAgICAgICAgICAgIC AgICAgICAgICAgICAgICAgICAgICAgICAgICAgICAg ICAgICAgICAgICAgICAgICAgICAgICAgICAgICAgICAgICAgICAgICAgICANCiAgICAgICAgICAgICAg ICAgICAgICAgICAgICAgICAgICAgICAgICAgICAgICAgICAgICAgICAgICAgICAgICAgICAgICAgICAg ICAgICAgICAgICAgICAgICAgICAgICAgICANCiAgIC AgICAgICAgICAgICAgICAgICAgICAgICAgICAgICAgICAgICAgICAgICAgICAgICAgICAgICAgICAgIC AgICAgICAgICAgICAgICAgICAgICAgICAgICAgICAgICAgICANCiAgICAgICAgICAgICAgICAgICAgIC AgICAgICAgICAgICAgICAgICAgICAgICAgICAgICAg ICAgICAgICAgICAgICAgICAgICAgICAgICAgICAgICAgICAgICAgICAgICAgICANCiAgICAgICAgICAg ICAgICAgICAgICAgICAgICAgICAgICAgICAgICAgICAgICAgICAgICAgICAgICAgICAgICAgICAgICAg ICAgICAgICAgICAgICAgICAgICAgICAgICAgICANCi AgICAgICAgICAgICAgICAgICAgICAgICAgICAgICAgICAgICAgICAgICAgICAgICAgICAgICAgICAgIC AgICAgICAgICAgICAgICAgICAgICAgICAgICAgICAgICAgICAgICANCiAgICAgICAgICAgICAgICAgIC AgICAgICAgICAgICAgICAgICAgICAgICAgICAgICAg ICAgICAgICAgICAgICAgICAgICAgICAgICAgICAgICAgICAgICAgICAgICAgICAgICANCiAgICAgICAg ICAgICAgICAgICAgICAgICAgICAgICAgICAgICAgICAgICAgICAgICAgICAgICAgICAgICAgICAgICAg ICAgICAgICAgICAgICAgICAgICAgICAgICAgICAgIC ANCjw/nATaI4egwMBzaeY3G7weMi5PAh7TAU1pe1JmXXJxWGegmuHhSmmLZwSxQMMsYcxZOzt7TWsfMR 0FcGSoM9OwA5DqEZcwFE2WFIYbSUSpbVYuIXHiCZLwHcJ5XNYvLJddVB1ZeQMoUXzmHHKoMXVxDtWzNR NtVF0ZHQLwW338auDlMx7JQd6BLaHbMF8yop9DFcpc ZQZnXnnRJdo5KIuyNQ7AzBQefXUfKAYlGPZVIjKpE1yzw6AvCvudITVLERniBM2Ai3YasOFzOFd+Pg0K JE1zx6KcCIxkWMUnMH9vob2FXIjZTcPmN5UbeLpiBCXvn9cyUBPqCH7cpFJrBZL1TRCfj4M0ZS7zLyXu ciHve7HxWmHdYwdhHWIvPCPvASPvPu2fKVXiNILuOz XwACFGRR6RKWOdOKBhlOFhCCCjWUHWMD9YPRnwDQN1UHFgtuWrkIQxXNgnQD8MUOKrddEyMkjwLLKKQL o+Nt4KDG1yw8TsAUudTIYcER0lxn3DEFqGUpLxV3D2kNQmW1E6CFufFp8WEHWcGGOcNzSaKMFULIvpWY 6WSG6vdqU6MT9OvVLoHYOzPYQqaXZuLMh0W39xnAHx UGwzAC6JOAX+Jey+Ze4MYUAdITAxWNLvTkAaGONEDlCdC8GyO2YMv8VpM0WgMS14fSuxxuOxJPvgUR7E QH2qEWKhUGNZWG0NsKLizL1kdjGaGaAtPILHLvOcW78igIOlYCQmCPF2NRVlPr3ECVIyJ0CydxGhaMbr zeFfAEUrUQHWVL6AVRgrysWmwHUskMeiMG06lFvpTB 7BJx3VWtAvTO1uye2IgOGoMs4NORUvJN0TLRIzNISxMNJhOOG7MKOxDdOyWMyfKPSfTOOpSWG6TTAkVE PiSR1SSeReASFcRvD6KJHlCYInAKChxw3TXAUlWDEdUtO4PeJhMZKhHWLkWXekNSNwMEDoPJI0JTBwZI JfSR3ODlTuLDDdWRH5DLVhTOOiUYEgbm3CWCSzNNMx TPC3OcZhTHVjFCLdMFqvMOQcWEO0VHKuEQFnZZTzUC3QGjDfEKNxUWvrXWFdOSDfEUPjxf8NJGNmNZFd SEU2RjOaBVXoQCEyWBabMINbKQW6WsS3KODrZWVwBK8KFeSuQADaDFn4FAHrKOMdMBPmnp6XFDZwWEGm YME4NWSvAUBpLXAeHYsdANRiGME6YsIdGXCoUSSkLL 3BKfWfOURiLGp8IRqdEZMvUTDjpd3LABDoJDSbXWY2JGJsSWIxRZUjJVbcKYUtCJTcYLCrSIVyPCHeKP 2NEkXpGFNrQaC0MinfJSIkHCJujb9OAXCvKMJaZaIeLXXbPWCrXIUmOTuzEUPlGPLhMEM3QAFpCADfDA 1WIdEmDRIsNuArSHyqTMDdDZKzgh9OAQGsAHAsSyH7 ZMMcQLAuWXGzOKwlROObGEBvTYz5HEStIDSnJV6JKzBnWUYqDlN5VXpcMKQeHHQqqr3YXEJoXVSwLYUi ZfUrGGIqQJBiFTrqBTRrBYH0Aua4RDHjSYBsIQ2PTdVyQUHhLvSnFPvmCJCuILUltn8UJLFgUAFnRkJ0 AEMtGWHkDCExJYrfDCCdZIX5WiDmAPDqJCCeIU0YXu BrQQPcTlM2ECgyPAUeLZMtyn4QtHTptOwven6HAAaGKh4ZcTojLPWtABavCi8wnRLgGICqCIMEBw2Fvz RxHHTpPQABYRnsXNRqXMHnGrZxCdSwIbS3FONdPHF3MFIdYrxrSdQgFaOlISRzWsI3RSZgFQHoMNAtSZ RcL6RiLpivQLMxIKJ3DRToLHJ2GrX+DH4lFAj+Uz2Aa5TzqmL7wpOtZDqaDyTsZw8YCMWVN7VWLg== ID Date Data Source [id number] 06/06/2020 03:12:03 PM [facility] Name Value Range Interpretation Code Description Data Giovana rce(s) Supporting Document(s) Progress Note [facility] DEJMIu8nFlFXGxGp38/IXYrmJTPcz9QtNYdgNJg8XDzqBVXfH0LcIYV6hE2sBTS9THdMDlQyEwVcHNTk lbm [file] LzF0VTP7GrW2GoT+QN6vKNs+Qz3Ga5OmepM2qfYtDSmdSWBlVp6DBBXCW4VZYa== ID Date Data Source [id number] 05/10/2020 10:14:00 AM EDT [facility] ([facility]) Name Value Range Interpretation Code Description Data Giovana rce(s) Supporting Document(s) Surgical pathology study Laboratory test result [facility] ([facility]) FINAL DIAGNOSIS Esophagus, below Z-line, biopsy: Junctional [...] MD 05/12/2020 1140 ID Date Data Source [id number] 05/09/2020 02:17:55 PM EDT [facility] Name Value Range Interpretation Code Description Data Giovana rce(s) Supporting Document(s) Progress Note [facility] ZIJPIj5vLwXSSbQv69/ACFefDNUqu6DqRTsuWIw8RAfzEBFlZ2WvPUJ4nR5vPJH6SAdNKxSdGaUmOEVa [facility] [file] [id number]= ID Date Data Source [id number] 05/05/2020 11:55:00 AM EDT [facility] Name Value Range Interpretation Code Description Data Giovana rce(s) Supporting Document(s) SARS coronavirus 2 RNA [facility] This lab was ordered by [facility] and reported by [facility]. ID Date Data Source [id number] 04/27/2020 06:09:28 AM EDT [facility] XR FOOT 3 OR MORE VIEWS [id number] RESUL TInterpreted by:Fallon Smith ankle 2 views [...] rce(s) Supporting Document(s) ID Date Data Source [id number] 04/27/2020 06:09:28 AM EDT [facility] XR ANKLE 2 VIEWS [id number] RESULTInterp reted by:Fallon Smith ankle 2 views and right foot 3 viewsINDICATION: Subtalar arthritisCOMPARISON: CT right ankle 06/16/2019, right ankle and foot radiographs 3/13/2019FINDINGS:Right ankle:The ankle mortise is symmetric and intact. [...] rce(s) Supporting Document(s) ID Date Data Source [id number] 04/26/2020 04:20:41 PM T [facility] Name Value Range Interpretation Code Description Data Giovana rce(s) Supporting Document(s) Progress Note [facility] DCDKLt7xRfEWTdKf61/ITIqtFWXty9LeKDtqSOw3IZmlRABjQ1KkHLZ8pU0uWXK8MYvGHtUhGqAdZHMu lbm [file] cgZnAnCC6AFz2MImV7HFX1cAVeJx8VTwA3NstKUdQqER0CMZy= ID Date Data Source [id number] 03/29/2020 12:20:00 [place] [address] PHONE: [phone] FAX: [phone] Name .................. : GAVIOTA Heck Number.................. : [id number] ROOM. ................. : MR Number ................... : [id number] Stay type ............. : CLINIC Discharge Date......... ... : 03/27/20 Admit Date ......... : 03/27/20 Admit Phys .................... : HESTER HARD Date of ....... : 1990 Family Phys ................... : [facility] HARD Phone .................. : [phone] Age ................................ : 29 Film# .................. .:[id number] Sex ................................. : M Unsigned transcriptions are preliminary reports and do not represent a medical or legal document CT ABD & PELV W/O ORAL W/O IV [id number] COMPLETE:03/27/20 14:16 RLB [id number] (REASON FOR ABDOMEN: LOWER ABD PAIN CT [...] dose: 2953.0 mGycm Page 1 of 2 [facility] [address] [place] [address] [place] [address] PHONE: [phone] FAX: [phone] Name .................. : GAVIOTA Madison Acct Number.................. : [id number] ROOM. ................. : Number ................... : [id number] Stay type ............. : CLINIC Discharge Date......... ... : 03/27/20 Admit Date ......... : 03/27/20 Admit Phys .................... : [email or web address] Date of ....... : 1990 Family Phys ................... : [email or web address] Phone .................. : [phone] Age ................................ : 29 Film# .................. .:[id number] Sex ................................. : M Unsigned transcriptions are preliminary reports and do not represent a medical or legal document CT ABD & PELV W/O ORAL W/O IV [id number] COMPLETE:03/27/20 14:16 RLB [id number] (REASON FOR ABDOMEN: LOWER ABD PAIN Electronically Reviewed and Signed By Yousif Bernardo M.D. , 03/29/20 12:20, [facility] Transcribe Initials: DZ , Transcribe Date: 03/27/20 23:48, Dictation Date: Page 2 of 2 Name Value Range Interpretation Code Description Data Giovana rce(s) Supporting Document(s) ID Date Data Source [id number] 03/22/2020 03:26:00 PM EDT [facility] 1 OrderSheet [facility] Emergency Department [address] [place] [address] Phone #: ext- [phone] 03/22/2020 15:24 Patient: [...] rce(s) Supporting Document(s) ID Date Data Source [id number] 03/22/2020 03:26:00 PM EDT [facility] 1 Medication Reconciliation Report [facility] Emergency Department [address] [place] [address] Phone #: ext- [phone] 03/22/2020 15:24 Patient: NICK TRUJILLO Sex: M [...] ODT Oral, prn 2 Medication Reconciliation Report [facility] Emergency Department [address] [place] [address] Phone #: ext- [phone] 03/22/2020 15:24 Patient: NICK TRUJILLO Sex: M : 1990 Age: 29yThe source(s) of the original Home Medication information:patientThe following Medications were given to the patient in the Emergency Department:Ativan [IM] IM 1 mg, administered: 03/22/2020 4:03:00 PMThe following Medications were prescribed to the patient:None. Name Value Range Interpretation Code Description Data [facility] Supporting Document(s) ID Date Data Source [id number] 03/22/2020 03:26:00 PM EDT [facility] 1 Medication Administration Record [facility] Emergency Department [address] [place] [address] Phone #: ext- [phone] 03/22/2020 15:24 Patient: NICK TRUJILLO Sex: M : 1990 Age: 29yWeight: 190.5 kgHeight/Length: 71 inBMI: 58.6ALLERGIES: Dilantin, Naproxen, Naproxsyn, Tylenol with codein Date/Time Medication Administered Medication OrderedGiven ATIVAN [IM] (LORAZEPAM) Ativan IM 1 mg (HIGH ALERT16:03 03/22/2020 Dose: 1 mg IM MEDICATION)Enedina Banda R.N. Name Value Range Interpretation Code Description Data Giovana rce(s) Supporting Document(s) ID Date Data Source [id number] 03/22/2020 03:26:00 PM EDT [facility] 1 General Instructions [facility] Emergency Department [address] [place] [address] Phone #: ext- [phone] 03/22/2020 15:24 Patient: NICK TRUJILLO Sex: M : 1990 Age: 29yChronic periumbilical abdominal pain, now resolved. (recurrent).INSTRUCTIONSDrink plenty of fluids. Avoid alcohol and NSAIDS. NSAIDS include aspirin, ibuprofen (Advil) and naproxen(Aleve). Avoid fatty, fried/greasy, lactose-containing (such as milk, cheese and ice cream), salty and spicyfoods. No alcohol. Do not smoke.Warnings: Further evaluation is necessary ([facility]). It is very important to [...] provided to patient viapaper. 2 General Instructions [facility] Emergency Department [address] [place] [address] Phone #: ext- [phone] 03/22/2020 15:24 Patient: NICK TRUJILLO Sex: M : 1990 Age: 29yUnderstanding of the discharge instructions verbalized by patient. Expected course of illness, dischargeinstructions, activity level, diet, follow-up appointment and risks and benefits of treatment reviewed withpatient and understanding verbalized. Agrees to plan of care.Follow-up with: [facility], , , [address] [place] [address], [id number] Follow up in five days even if [...] options include broth, soup, 3 General Instructions [facility] Emergency Department [address] [place] [address] Phone #: ext- [phone] 03/22/2020 15:24 Patient: [...] chest, arm, back, neck or jaw pain [id number] [employer]. [address] [place] [address], [place] [address]. All rights reserved. This information is not intended as asubstitute for professional medical care. Always follow your healthcare professional's instructions. You have been given the following additional information: Unknown Causes of Abdominal Pain (Male)(Electronically signed by Cleo Gruber M.D. 03/22/2020 17:36) Name Value Range Interpretation Code Description Data Giovana rce(s) Supporting Document(s) ID Date Data Source [id number] 03/22/2020 03:26:00 PM EDT [facility] 1 Clinical Report - Nurses [facility] Emergency Department [address] [place] [address] Phone #: ext- [phone] 03/22/2020 15:24 Patient: [...] Osei R.N. 2 Clinical Report - Nurses [facility] Emergency Department [address] [place] [address] Phone #: ext- [phone] 03/22/2020 15:24 Patient: [...] Osei R.N. 3 Clinical Report - Nurses [facility] Emergency Department [address] [place] [address] Phone #: ext- [phone] 03/22/2020 15:24 Patient: NIKC TRUJILLO Sex: M : 1990 Age: 29y 15:59 03/22/20. BP: 141/76. MAP: 97. HR: 98. RR: 20. O2 saturation: 100%. --15:59 03/22/20 [facility] [place] ER Tech1 16:03 03/22/2020 Ativan (LORazepam) IM [...] Patient verbalized understanding. Written instructions provided in Slovenian. The patient was discharged home. He left ambulatory and via private vehicle. --17:24 03/22/20 Enedina Banda R.N.Locked/Released at 03/22/2020 17:25 by Enedina Banda R.N. Name Value Range Interpretation Code Description Data Giovana rce(s) Supporting Document(s) ID Date Data Source [id number] 03/22/2020 03:26:00 PM EDT [facility] 1 Clinical Report - Physicians/Mid Levels [facility] Emergency Department [address] [place] [address] Phone #: ext- [phone] 03/22/2020 15:24 Patient: [...] umbilical hernia repair several weeks ago at [facility], saw his surgeon last week for [...] Cholecystectomy. 2 Clinical Report - Physicians/Mid Levels [facility] Emergency Department [address] [place] [address] Phone #: ext- [phone] 03/22/2020 15:24 Patient: NICK TRUJILLO Sex: M [...] pulses 3 Clinical Report - Physicians/Mid Levels [facility] Emergency Department [address] [place] [address] Phone #: ext- [phone] 03/22/2020 15:24 Patient: [...] 8.2) 4 Clinical Report - Physicians/Mid Levels [facility] Emergency Department [address] [place] [address] Phone #: ext- [phone] 03/22/2020 15:24 Patient: [...] be referred to our surgeon here [facility] for his chronic, recurrent abdominal pain, [...] (recurrent). 5 Clinical Report - Physicians/Mid Levels [facility] Emergency Department [address] [place] [address] Phone #: ext- [phone] 03/22/2020 15:24 Patient: NICK TRUJILLO Sex: M : 1990 Age: 29yINSTRUCTIONS Drink plenty of fluids. Avoid alcohol and NSAIDS. NSAIDS include aspirin, ibuprofen (Advil) and naproxen (Aleve). Avoid fatty, fried/greasy, lactose-containing (such as milk, cheese and ice cream), salty and spicy foods. No alcohol. Do not smoke. Warnings: Further evaluation is necessary ([facility]). It is very important to [...] plan of care. Follow-up with: [facility], , , [address] [place] [address], [facility] Follow up in five days even if well. Call for an appointment. Reason for referral: evaluation and treatment. Summary of care provided to patient via paper. 6 Clinical Report - Physicians/Mid Levels [facility] Emergency Department [address] [place] [address] Phone #: ext- [phone] 03/22/2020 15:24 [id number] Sex: M : 1990 Age: 29y(Electronically signed by Cleo Gruber M.D. 03/22/2020 17:36) Name Value Range Interpretation Code Description Data Giovana rce(s) Supporting Document(s) ID Date Data Source [id number] 03/22/2020 04:34:00 PM EDT [facility] Name Value Range Interpretation Code Description Data Giovana rce(s) Supporting Document(s) Lipase [Enzymatic activity/volume] in Serum or Plasma 34 U/L 13 - 60 [facility] ID Date Data Source [id number] 03/22/2020 04:34:00 PM EDT [facility] Name Value Range Interpretation Code Description Data Giovana rce(s) Supporting Document(s) COMPREHENSIVE METABOLIC PANEL [facility] COMPREHENSIVE METABOLIC PANEL Sodium [Moles/volume] in Serum or Plasma 140 mEq/L 134 - 153 [facility] Potassium [Moles/volume] in Serum or Plasma 4.2 mEq/L 3.6 - 5.0 [facility] Chloride [Moles/volume] in Serum or Plasma 106 mEq/L 98 - 107 [facility] Carbon dioxide, total [Moles/volume] in Serum or Plasma 24 MEQ/L 22 - 30 [facility] Glucose [Mass/volume] in Serum or Plasma 110 MG/DL 65 - 110 [facility] BUN 12 MG/DL 7 - 21 [facility] al Creatinine [Mass/volume] in Serum or Plasma 0.9 MG/DL 0.7 - 1.5 [facility] BUN/CREAT 13 8 - 27 [facility] al Protein [Mass/volume] in Serum or Plasma 7.7 G/DL 6.3 - 8.2 [facility] Albumin [Mass/volume] in Serum or Plasma 4.1 G/DL 3.9 - 5.0 [facility] Globulin [Mass/volume] in Serum by calculation 3.6 GM/DL 2.4 - 3.2 H [facility] A/G RATIO 1.1 0.8 - 2.0 [facility] Calcium [Mass/volume] in Serum or Plasma 9.0 MG/DL 8.4 - 10.2 [facility] Bilirubin.total [Mass/volume] in Serum or Plasma <0.7 MG/DL 0.2 - 1.3 [facility] Alkaline phosphatase [Enzymatic activity/volume] in Serum or Plasma 83 U/L 38 - 126 [facility] Aspartate aminotransferase [Enzymatic activity/volume] in Serum or Plasma 27 U/L 5 - 40 [facility] Alanine aminotransferase [Enzymatic activity/volume] in Seru m or Plasma 37 U/L 7 - 56 [facility] Anion gap 3 in Serum or Plasma 10.0 mmol/L 8.0 - 16.0 [facility] AGE 29 yrs [facility] NON-AA GFR >60 mL/min [facility] ital AFR AMER GFR >60 mL/min [facility] spital Male GFR In [...] >32 mL/min Normal ID Date Data Source [id number] 03/22/2020 04:15:00 PM EDT [facility] Name Value Range Interpretation Code Description Data Giovana rce(s) Supporting Document(s) CBC W/AUTOMATED DIFF [facility] COMPLETE BLOOD COUNT Leukocytes [#/volume] in Blood by Automated count 9.6 10^3/uL 4.2 - 1 1.0 [facility] Erythrocytes [#/volume] in Blood by Automated count 5.41 10^6/uL 4. 50 - 6.30 [facility] Hemoglobin [Mass/volume] in Blood 15.9 g/dL 14.0 - 16.0 [facility] Hematocrit [Volume Fraction] of Blood by Automated count 48.7 % 4 1.0 - 51.0 [facility] Erythrocyte mean corpuscular volume [Entitic volume] by Auto mated count 90.0 fL 80.0 - 94.0 [facility] Erythrocyte mean corpuscular hemoglobin [Entitic mass] by Automated count 29.4 pg 27.0 - 34.0 [facility] Erythrocyte mean corpuscular hemoglobin concentration [Mass/volume] by Automated count 32.6 g/dL 31.0 - 36.0 [facility] Erythrocyte distribution width [Ratio] by Automated count 14.4 % 11.5 - 14.8 [facility] Platelets [#/volume] in Blood by Automated count 197 10^3/uL 150 - 45 0 [facility] Platelet mean volume [Entitic volume] in Blood by Automated count 9.0 fL 7.4 - 10.4 [facility] Neutrophils/100 leukocytes in Blood by Automated count 63.6 % 37. 0 - 80.0 [facility] Lymphocytes/100 leukocytes in Blood by Manual count 22.2 % 25.0 - 40.0 L [facility] Monocytes/100 leukocytes in Blood by Automated count 9.9 % 3.0 - 8.0 H [facility] Eosinophils/100 leukocytes in Blood by Automated count 3.7 % 0.0 - 7.0 [facility] Basophils/100 leukocytes in Blood by Automated count 0.3 % 0.0 - 2.0 [facility] %IG 0.3 % 0.0 - 0.0 H [facility] %NRBC 0.0 % 0.0 - 0.0 [facility] al Neutrophils [#/volume] in Blood by Automated count 6.13 10^3/uL 2.00 - 6.90 [facility] Lymphocytes [#/volume] in Blood by Automated count 2.14 10^3/uL 0.60 - 3.40 [facility] Monocytes [#/volume] in Blood by Automated count 0.95 10^3/uL 0.00 - 0.90 H [facility] Eosinophils [#/volume] in Blood by Automated count 0.36 10^3/uL 0.00 - 0.70 [facility] Basophils [#/volume] in Blood by Automated count 0.03 10^3/uL 0.00 - 0.20 [facility] #IG 0.03 10^3/uL 0.00 - 0.10 [facility] ospital #NRBC 0.00 10^3/uL 0.00 - 0.00 [facility]ital MANUAL DIFF NOT INDICATED [facility] RBC MORPH NOT INDICATED [facility] spital ID Date Data Source [id number] 03/13/2020 02:06:00 PM EDT [facility] [address] [place] [address] PHONE: [phone] FAX: [phone] Name .................. : GAVIOTA Madison Acct Number.................. : [id number] ROOM. ................. : TR-08 MR Number ................... : [id number] Stay type ............. : E/R Discharge Date......... ... : Admit Date ......... : 03/09/20 Admit Phys .................... : TALIA Madison Date of ....... : 1990 Family Phys ................... : HESTER HARD Phone .................. : [phone] Age ................................ : 29 Film# .................. .:[id number] Sex ................................. : M Unsigned transcriptions are preliminary reports and do not represent a medical or legal document CT ABD & PELV W/ORAL ONLY [id number] COMPLETE:03/09/20 21:11 [facility] [address] Reason(s): Abdominal Pain CT OF THE ABDOMEN [...] 75 Isovue 370 Page 1 of 2 [facility] [address] [facility] [place] [address] PHONE: [phone] FAX: [phone] Name .................. : GAVIOTA Madison Acct Number.................. : [id number] ROOM. ................. : TR-08 MR Number ................... : [id number] Stay type ............. : E/R Discharge Date......... ... : Admit Date ......... : 03/09/20 Admit Phys .................... : TALIA Madison Date of ....... : 1990 Family Phys ................... : HESTER HARD Phone .................. : [phone] Age ................................ : 29 Film# .................. .:[id number] Sex ................................. : M Unsigned transcriptions are preliminary reports and do not represent a medical or legal document CT ABD & PELV W/ORAL ONLY [id number] COMPLETE:03/09/20 21:11 [facility] [id number] Reason(s): Abdominal Pain Method of administration: Intravenous Electronically Reviewed and Signed By Yousif Bernardo M.D. , 03/13/20 14:06, [facility] Transcribe Initials: GUCCI , Transcribe Date: 03/09/20 23:30, Dictation Date: Copy for: EMERGENCY DEPT via modem Copy for: 710 MED REC DISCHARGED Page 2 of 2 Name Value Range Interpretation Code Description Data Giovana rce(s) Supporting Document(s) ID Date Data Source [id number] 03/09/2020 05:46:00 PM EDT [facility] 1 OrderSheet [facility] Emergency Department [address] [place] [address] Phone #: ext- [phone] 03/09/2020 17:13 Patient: [...] Description Priority Entered Acknowledged Initialed 2 OrderSheet [facility] Emergency Department [address] [place] [address] Phone #: ext- [phone] 03/09/2020 17:13 Patient: NICK TRUJILLO Sex: M : 1990 Age: 29yNS IV : Bolus 1000 STAT 18:54 03/09/2020 Cancelled: Physician Order 21:14 LuisenmL, then 150 mL/hr Hitesh Melgar RN(NOW x1) [...] rce(s) Supporting Document(s) ID Date Data Source [id number] 03/09/2020 05:46:00 PM EDT [facility] 1 Medication Reconciliation Report [facility] Emergency Department [address] [place] [address] Phone #: ext- [phone] 03/09/2020 17:13 Patient: [...] ODT Oral, prn 2 Medication Reconciliation Report [facility] Emergency Department [address] [place] [address] Phone #: ext- [phone] 03/09/2020 17:13 Patient: NICK TRUJILLO Sex: M : 1990 Age: 29yThe source(s) of the original Home Medication information:Not obtained.The following Medications were given to the patient in the Emergency Department:None.The following Medications were prescribed to the patient:None. Name Value Range Interpretation Code Description Data Giovana rce(s) Supporting Document(s) ID Date Data Source [id number] 03/09/2020 05:46:00 PM EDT [facility] 1 Medication Administration Record [facility] Emergency Department [address] [place] [address] Phone #: ext- [phone] 03/09/2020 17:13 Patient: NICK TRUJILLO Sex: M : 1990 Age: 29yWeight: 179.1 kgHeight/Length: 71 inBMI: 55.1ALLERGIES: Naproxen, Dilantin, Tylenol with codiene, Naproxsyn, Tylenol with codeinDate/Time Medication Administered Medication Ordered Name Value Range Interpretation Code Description Data [facility] Supporting Document(s) ID Date Data Source [id number] 03/09/2020 05:46:00 PM EDT [facility] 1 General Instructions [facility] Emergency Department [address] [place] [address] Phone #: ext- [phone] 03/09/2020 17:13 Patient: [...] when you follow up. 2 General Instructions [facility] Emergency Department [address] [place] [address] Phone #: ext- [phone] 03/09/2020 17:13 Patient: NICK TRUJILLO Sex: M [...] red or black color) 3 General Instructions [facility] Emergency Department [address] [place] [address] Phone #: ext- [phone] 03/09/2020 17:13 Patient: NICK TRUJILLO Sex: M : 1990 Age: 29y Jaundice (yellow color of eyes and skin) New onset of weakness, dizziness or fainting New onset of chest, arm, back, neck or jaw pain [id number] [employer]. [address] [place] [address], [place] [address]. All rights reserved. This information is not [...] bloating Feeling full quickly 4 General Instructions [facility] Emergency Department [address] [place] [address] Phone #: ext- [phone] 03/09/2020 17:13 Patient: [...] dizzy Shortness of breath 5 General Instructions [facility] Emergency Department [address] [place] [address] Phone #: owy- [phone] 03/09/2020 17:13 Patient: NICK TRUJILLO Sex: M : 1990 Age: 29y Unexplained weight loss Fever of 100.4F (38C) or higher, or as directed by your healthcare provider 1184-0060 [employer]. [address] [place] [address]. All rights reserved. This information is not [...] rce(s) Supporting Document(s) ID Date Data Source [id number] 03/09/2020 05:46:00 PM EDT [facility] 1 Clinical Report - Nurses [facility] Emergency Department [address] [place] [address] Phone #: ext- [phone] 03/09/2020 17:13 Patient: NICK TRUJILLO Sex: M : 1990 Age: 29yTRIAGEArrived by EMS. Historian: patient. ( PT HAD HERNIA SURGERY 4 WEEKS AGO AND HE SAYS MAGNOLIA RIVERA. NO DRAINAGE. PT HAS APPT NEXT TU WITH SURGEON-DR. FINNEY IN [place].PROCEDURE [facility]A T [facility]).Triage time: 17:14 03/09/2020. Acuity: LEVEL 3.Chief Complaint: ABDOMINAL PAIN.Alert.The patient has had abdominal pain.Treatment BARTENDER MANAGER:None. --17:18 03/09/20 Enedina Banda R.N.17:14 03/09/20. BP: [...] Banda R.N.Naproxsyn. 2 Clinical Report - Nurses [facility] Emergency Department [address] [place] [address] Phone #: ext- [phone] 03/09/2020 17:13 Patient: [...] treatment room. --17:18 03/09/20 Enedina Banda R.N.PHYSICAL PZWYIOZEIP72:29 03/09/20. To room via stretcher.GENERAL / NEURO [...] RR: 16. O2 saturation: 97%. --18:27 03/09/20 [facility] TechEnedina, Tech1 18:30 03/09/20. Patient gowned. Head of bed elevated 75 degrees. Two patient identifiers checked. Call light placed in reach. Bed placed in lowest position. Brakes of bed on. Patient ready for evaluation- chart flagged. --18:30 03/09/20 Phillip Drummond RN 3 Clinical Report - Nurses [facility] Emergency Department [address] [place] [address] Phone #: ext- [phone] 03/09/2020 17:13 [facility]: [id number] Sex: M : 1990 Age: 29y 19:16 [...] Reviewed referral to family practice and a property management accountant for followup. Reviewed need for increased fluid intake. Activity restrictions (rest) reviewed. Patient verbalized understanding. Written instructions provided in Slovenian. The patient was discharged home. He left [...] Peace RN. 4 Clinical Report - Nurses [facility] Emergency Department [address] [place] [address] Phone #: [phone] uyy- [phone] 03/09/2020 17:13 Patient: NICK TRUJILLO Sex: M : 1990 Age: 29yLocked/Released at 03/10/2020 00:45 by Bean Peace RN Name Value Range Interpretation Code Description Data Giovana rce(s) Supporting Document(s) ID Date Data Source [id number] 03/09/2020 05:46:00 PM EDT [facility] 1 Clinical Report - Physicians/Mid Levels [facility] Emergency Department [address] [place] [address] Phone #: ext- [phone] 03/09/2020 17:13 Patient: NICK TRUJILLO Sex: M : 1990 Age: 29y Time Seen: 18:33 03/09/2020. Historian- patient. Disposition decision: 00:11 03/10/2020.HISTORY OF PRESENT ILLNESS Chief Complaint: ABDOMINAL PAIN. (29 year old morbuidly obese patient with abdominal pain past few weeks. had a cholecystectomy a nd later umbilical hernia repair done also at [facility]. has an appointment with f/u [...] Repair. 2 Clinical Report - Physicians/Mid Levels [facility] Emergency Department [address] [place] [address] Phone #: ext- [phone] 03/09/2020 17:13 Patient: NICK TRUJILLO Sex: M : 1990 Age: 29y Tonsillectomy. [...] roomair. Temp: 98.4 F. Pain level now: 310. Have been reviewed as normal.Appearance: Alert. No [...] sounds 3 Clinical Report - Physicians/Mid Levels [facility] Emergency Department [address] [place] [address] Phone #: ext- [phone] 03/09/2020 17:13 Patient: [...] Exam CT ABD //T// PELV W/ORAL ONLY [address] [place] [address] PHONE: [phone] FAX: [phone] Name .................. : GAVIOTA Madison Acct Number.................. : [id number] ROOM. ... .............. : TR-08 MR Number ................... : [id number] Stay type ............. : E/R Discharge Date......... ... : Admit Date ......... : 03/09/20 Admit Phys .................... : COLTONVAN Madison Date of ....... : 1990 Family Phys ................... : [email or web address] Phone .................. : [phone] Age ................................ : 29 Film# .................. .:[id number] Sex ................................. : M Unsigned transcriptions are [...] thickening. 4 Clinical Report - Physicians/Mid Levels [facility] Emergency Department [address] [place] [address] Phone #: ext- [phone] 03/09/2020 17:13 Patient: NICK TRUJILLO Sex: M [...] mL: 75 Isovue 370 Page 1of 2 [place] [address] PHONE: [phone] FAX: [phone] Name .................. : GAVIOTA Madison Acct Number.................. : [id number] ROOM. ................. : TR-08 MR Number ................... : [id number] Stay type ............. : E/R Discharge Date......... ... : Admit Date ......... : 03/09/20 Admit Phys .................... : TALIA Madison Date of ....... : 1990 Family Phys ................... : MIR HARD Phone .................. : [phone] Age ..................... ........... : 29 Film# .................. .:[id number] Sex ................................. : M Unsigned transcriptions are [...] n 5 Clinical Report - Physicians/Mid Levels [facility] Emergency Department [address] [place] [address] Phone #: ext- [phone] 03/09/2020 17:13 Patient: [...] Male GFR Interprentation 20-49 yrs >60 mL/min Ghrkak44-86 yrs >56 mL/min Normal 60-69 yrs >49 mL/min Normal 70-79yrs>42 mL/min Normal 80 and above >35 mL/min Normal Female GFRInterpretation 20-39 yrs >60 mL/min Normal 40-49 yrs >58 mL/minNormal 50-59 yrs >51 mL/min Normal 60-69 yrs >45 mL/min Bkhtlw30-59 yrs >39 mL/min Normal 80 and above [...] 51.0) 6 Clinical Report - Physicians/Mid Levels [facility] Emergency Department [address] [place] [address] Phone #: ext- [phone] 03/09/2020 17:13 Patient: [...] has an appointment with his surgeon at [facility] next week, advised to keep the appointment, return if any symptoms. Patient/family counseled. Old medical records ordered. Disposition: Discharged home in good and improved cond ition (00:11 Mar 10 2020). Condition: stable. 7 Clinical Report - Physicians/Mid Levels [facility] Emergency Department [address] [place] [address] Phone #: ext- [phone] 03/09/2020 17:13 [id number] Sex: M : 1990 Age: 29yCLINICAL IMPRESSION [...] e(s) Supporting Document(s) ID Date Data Source [id number] 03/09/2020 07:33:00 PM EDT [facility] Name Value Range Interpretation Code Description Data Giovana e(s) Supporting Document(s) [facility]IS [facility] COLOR yellow NORMAL: Yellow [facility] CLARITY clear NORMAL: Clear [facility] Specific gravity of Urine by Test strip 1.010 1.001 - 1.030 [facility] pH 7 5 - 9 [facility] Glucose [Mass/volume] in Urine by Test strip NORM NORMAL: Negat [facility] Bilirubin.total [Presence] in Urine by Test strip NEG NORMAL: Negative [facility] Ketones [Presence] in Urine by Test strip NEG NORMAL: Negative [facility] Protein [Mass/volume] in Urine by Test strip NEG NORMAL: Negat [facility] Nitrite [Presence] in Urine by Test strip NEG NORMAL: Negative [facility] BLOOD NEG NORMAL: Negative [facility] Leukocyte esterase [Presence] in Urine by Test strip NEG MILAGROS L: Negative [facility] Urobilinogen [Mass/volume] in Urine by Test strip NOR less vanessa n 1.0 mg/dL [facility] MICROSCOPIC Not Indicate [facility] ID Date Data Source [id number] 03/09/2020 07:38:00 PM EDT [facility] Name Value Range Interpretation Code Description Data Giovana rce(s) Supporting Document(s) COMPREHENSIVE METABOLIC PANEL [facility] COMPREHENSIVE METABOLIC PANEL Sodium [Moles/volume] in Serum or Plasma 142 mEq/L 134 - 153 [facility] Potassium [Moles/volume] in Serum or Plasma 3.8 mEq/L 3.6 - 5.0 [facility] Chloride [Moles/volume] in Serum or Plasma 106 mEq/L 98 - 107 [facility] Carbon dioxide, total [Moles/volume] in Serum or Plasma 21 MEQ/L 22 - 30 L [facility] Glucose [Mass/volume] in Serum or Plasma 118 MG/DL 65 - 110 H [facility] BUN 11 MG/DL 7 - 21 [facility] Creatinine [Mass/volume] in Serum or Plasma 0.9 MG/DL 0.7 - 1.5 [facility] BUN/CREAT 12 8 - 27 [facility] al Protein [Mass/volume] in Serum or Plasma 7.8 G/DL 6.3 - 8.2 [facility] Albumin [Mass/volume] in Serum or Plasma 4.4 G/DL 3.9 - 5.0 [facility] Globulin [Mass/volume] in Serum by calculation 3.4 GM/DL 2.4 - 3.2 H [facility] A/G RATIO 1.3 0.8 - 2.0 [facility] Calcium [Mass/volume] in Serum or Plasma 9.2 MG/DL 8.4 - 10.2 [facility] Bilirubin.total [Mass/volume] in Serum or Plasma <0.7 MG/DL 0.2 - 1.3 [facility] Alkaline phosphatase [Enzymatic activity/volume] in Serum or Plasma 98 U/L 38 - 126 [facility] Aspartate aminotransferase [Enzymatic activity/volume] in Serum or Plasma 20 U/L 5 - 40 [facility] Alanine aminotransferase [Enzymatic activity/volume] in Seru m or Plasma 32 U/L 7 - 56 [facility] Anion gap 3 in Serum or Plasma 15.0 mmol/L 8.0 - 16.0 [facility] AGE 29 yrs [facility] NON-AA GFR >60 mL/min [facility] ital AFR AMER GFR >60 mL/min [facility] Male GFR In [...] >32 mL/min Normal ID Date Data Source [id number] 03/09/2020 07:35:00 PM EDT [facility] Name Value Range Interpretation Code Description Data Gioavna rce(s) Supporting Document(s) Lipase [Enzymatic activity/volume] in Serum or Plasma 39 U/L 13 - 60 [facility] ID Date Data Source [id number] 03/09/2020 07:19:00 PM [facility] Name Value Range Interpretation Code Description Data Giovana rce(s) Supporting Document(s) Lactate [Moles/volume] in Serum or Plasma 3.4 MMOL/L 0.2 - 2.2 H [facility] ID Date Data Source [id number] 03/09/2020 07:17:00 PM [facility] Name Value Range Interpretation Code Description Data Giovana rce(s) Supporting Document(s) CBC W/AUTOMATED DIFF [facility] COMPLETE BLOOD COUNT Leukocytes [#/volume] in Blood by Automated count 11.1 10^3/uL 4.2 - 11.0 H [facility] Erythrocytes [#/volume] in Blood by Automated count 5.71 10^6/uL 4. 50 - 6.30 [facility] Hemoglobin [Mass/volume] in Blood 16.4 g/dL 14.0 - 16.0 H [facility] Hematocrit [Volume Fraction] of Blood by Automated count 51.4 % 4 1.0 - 51.0 H [facility] Erythrocyte mean corpuscular volume [Entitic volume] by Auto mated count 90.0 fL 80.0 - 94.0 [facility] Erythrocyte mean corpuscular hemoglobin [Entitic mass] by Automated count 28.7 pg 27.0 - 34.0 [facility] Erythrocyte mean corpuscular hemoglobin concentration [Mass/volume] by Automated count 31.9 g/dL 31.0 - 36.0 [facility] Erythrocyte distribution width [Ratio] by Automated count 14.1 % 11.5 - 14.8 [facility] Platelets [#/volume] in Blood by Automated count 209 10^3/uL 150 - 45 0 [facility] Platelet mean volume [Entitic volume] in Blood by Automated count 9.0 fL 7.4 - 10.4 [facility] Neutrophils/100 leukocytes in Blood by Automated count 71.7 % 37. 0 - 80.0 [facility] Lymphocytes/100 leukocytes in Blood by Manual count 16.6 % 25.0 - 40.0 L [facility] Monocytes/100 leukocytes in Blood by Automated count 5.9 % 3.0 - 8.0 [facility] Eosinophils/100 leukocytes in Blood by Automated count 5.1 % 0.0 - 7.0 [facility] Basophils/100 leukocytes in Blood by Automated count 0.3 % 0.0 - 2.0 [facility] %IG 0.4 % 0.0 - 0.0 [facility] %NRBC 0.0 % 0.0 - 0.0 [facility] al Neutrophils [#/volume] in Blood by Automated count 7.98 10^3/uL 2.00 - 6.90 H [facility] Lymphocytes [#/volume] in Blood by Automated count 1.85 10^3/uL 0.60 - 3.40 [facility] Monocytes [#/volume] in Blood by Automated count 0.66 10^3/uL 0.00 - 0.90 [facility] Eosinophils [#/volume] in Blood by Automated count 0.57 10^3/uL 0.00 - 0.70 [facility] Basophils [#/volume] in Blood by Automated count 0.03 10^3/uL 0.00 - 0.20 [facility] #IG 0.04 10^3/uL 0.00 - 0.10 [facility] #NRBC 0.00 10^3/uL 0.00 - 0.00 [facility] ospital MANUAL DIFF NOT INDICATED [facility] RBC MORPH NOT INDICATED [facility] spital ID Date Data Source [id number] 02/23/2020 11:36:00 AM EDT [facility] ([facility]) Name Value Range Interpretation Code Description Data Giovana rce(s) Supporting Document(s) CBC W/Automated Diff Laboratory test result [facility] ([facility]) Is patient fasting? N WBC 10.6 10^3/uL 4.2-11.0 [facility] ([facility]) Is patient fasting? N RBC 5.78 10^6/uL 4.50-6.30 [facility] ([facility]) Is patient fasting? N Hematocrit 51.1 % 41.0-51.0 Above high normal [facility] ([facility]) Is patient fasting? N Hemoglobin 16.3 g/dL 14.0-16.0 Above high normal [facility] ([facility]) Is patient fasting? N MCV 88.4 fL 80.0-94.0 [facility] ([facility]) Is patient fasting? N RDW 13.5 % 11.5-14.8 [facility] ([facility]) Is patient fasting? N MCH 28.2 pg 27.0-34.0 [facility] ([facility]) Is patient fasting? N MCHC 31.9 g/dL 31.0-36.0 [facility] ([facility]) Is patient fasting? N Platelets 262 10^3/uL 150-450 [facility] ([facility]) Is patient fasting? N Neut 65.2 % 37.0-80.0 [facility] ([facility]) Is patient fasting? N Lymph 18.6 % 25.0-40.0 Below low normal [facility] ( [facility]) Is patient fasting? N MPV 9.6 fL 7.4-10.4 [facility] ([facility]) Is patient fasting? N Eos 7.6 % 0.0-7.0 Above high normal [facility] ([facility]) Is patient fasting? N Navarro 7.6 % 3.0-8.0 [facility] ([facility]) Is patient fasting? N Baso 0.5 % 0.0-2.0 [facility] ([facility]) Is patient fasting? N %NRBC 0.0 % 0.0-0.0 [facility] ([facility]) Is patient fasting? N %Ig 0.5 % 0.0-0.0 Above high normal [facility] ([facility]) Is patient fasting? N #Lymph 1.97 10^3/uL 0.60-3.40 [facility] ([facility]) Is patient fasting? N #Neut 6.92 10^3/uL 2.00-6.90 Above high normal [facility] ([facility]) Is patient fasting? N #Navarro 0.81 10^3/uL 0.00-0.90 [facility] ([facility]) Is patient fasting? N #Eos 0.81 10^3/uL 0.00-0.70 Above high normal [facility] ([facility]) Is patient fasting? N #Baso 0.05 10^3/uL 0.00-0.20 [facility] ([facility]) Is patient fasting? N #Ig 0.05 10^3/uL 0.00-0.10 [facility] ([facility]) Is patient fasting? N Manual Diff Laboratory test result M [facility] ([facility]) Is patient fasting? N RBC Morph Laboratory test result [facility] ([facility]) Is patient fasting? N #NRBC 0.00 10^3/uL 0.00-0.00 [facility] ([facility]) Is patient fasting? N ID Date Data Source [id number] 02/23/2020 11:36:00 AM EDT [facility] ([facility]) Name Value Range Interpretation Code Description Data Giovana rce(s) Supporting Document(s) Hemoglobin A1c/Hemoglobin.total in Blood 4.9 % 4.4-6.1 [facility] ([facility]) Is patient fasting? N Topiramate [Mass/volume] in Serum or Plasma 7.3 ug/mL 2.0-25.0 [facility] ([facility]) Is patient fasting? N ID Date Data Source [id number] 02/23/2020 11:36:00 AM EDT [facility] ([facility]) Name Value Range Interpretation Code Description Data Giovana rce(s) Supporting Document(s) Comprehensive Metabo Laboratory test result [facility] ([facility]) Is patient fasting? N Chloride 103 meq/L 98-107 [facility] ([facility]) Is patient fasting? N Sodium 141 meq/L 134-153 [facility] ([facility]) Is patient fasting? N Potassium 3.8 meq/L 3.6-5.0 [facility] ([facility]) Is patient fasting? N Co2 25 meq/L 22-30 [facility] ([facility]) Is patient fasting? N BUN 8 mg/dL 7-21 [facility] ([facility]) Is patient fasting? N Glucose 86 mg/dL 65-110 [facility] ([facility]) Is patient fasting? N Creatinine 0.9 mg/dL 0.7-1.5 [facility] ([facility]) Is patient fasting? N Total Protein 7.8 g/dL 6.3-8.2 [facility] ([facility]) Is patient fasting? N BUN/Creat 9 8-27 [facility] ([facility]) Is patient fasting? N A/G Ratio 1.2 0.8-2.0 [facility] ([facility]) Is patient fasting? N Albumin 4.3 g/dL 3.9-5.0 [facility] ([facility]) Is patient fasting? N Globulin 3.5 GM/DL 2.4-3.2 Above high normal [facility] ([facility]) Is patient fasting? N Calcium 9.4 mg/dL 8.4-10.2 [facility] ([facility]) Is patient fasting? N Alkaline Phos 101 U/L 38-126 [facility] ([facility]) Is patient fasting? N Total Bili Laboratory test result 0.2-1.3 ME [facility] ([facility]) Is patient fasting? N Sgot/Ast 19 U/L 5-40 [facility] ([facility]) Is patient fasting? N SGPT/Alt 35 U/L 7-56 [facility] ([facility]) Is patient fasting? N Anion Gap 13.0 mmol/L 8.0-16.0 [facility] ([facility]) Is patient fasting? N Age 29 yrs [facility] ([facility]) Is patient fasting? N Non-Aa GFR Laboratory test result [facility] ([facility]) Is patient fasting? N Afr Amer GFR Laboratory test result [facility] ([facility]) Is patient fasting? N ID Date Data Source [id number] 02/23/2020 11:36:00 AM EDT [facility] ([facility]) Name Value Range Interpretation Code Description Data Giovana rce(s) Supporting Document(s) Thyrotropin [Units/volume] in Serum or Plasma 1.92 uIU/mL 0.47-5.01 [facility] ([facility]) Is patient fasting? N Thyroxine (T4) free [Mass/volume] in Serum or Plasma 0.85 ng/dL 0.93-1.70 Below low normal [facility] ([facility]) Is patient fasting? N ID Date Data Source [id number] 02/23/2020 11:36:00 AM EDT [facility] ([facility]) Name Value Range Interpretation Code Description Data Giovana rce(s) Supporting Document(s) Free Meckling Lt Chains,S 31.4 mg/L 3.3-19.4 Above high normal [facility] ([facility]) Is patient fasting? N Meckling/Lambda Ratio,S 1.03 NA 0.26-1.65 [facility] NT ([facility]) Is patient fasting? N Free Lambda Lt Chains,S 30.5 mg/L 5.7-26.3 Above high normal [facility] ([facility]) Is patient fasting? N ID Date Data Source [id number] 02/29/2020 07:03:00 AM EDT [facility] Name Value Range Interpretation Code Description Data Giovana rce(s) Supporting Document(s) Topiramate [Mass/volume] in Serum or Plasma 7.3 ug/mL 2.0-25.0 [facility] This test was developed and its performa nce characteristicsdetermined by [facility]. It has not been cleared or approvedby the Food and Drug Administration. Detection Limit = 1.0 ID Date Data Source [id number] 02/26/2020 06:44:00 AM EDT [facility] Name Value Range Interpretation Code Description Data Giovana rce(s) Supporting Document(s) Immunoglobulin light chains.kappa.free [Mass/volume] in Seru m 31.4 mg/L 3.3-19.4 H [facility] Immunoglobulin light chains.lambda.free [Mass/volume] in Serum or Plasma 30.5 mg/L 5.7-26.3 H [facility] Immunoglobulin light chains.kappa.free/I mmunoglobulin light chains.lambda.free [Mass Ratio] in Serum 1.03 NA 0.26-1.65 [facility] ID Date Data Source [id number] 02/23/2020 11:36:00 AM EDT [facility] ([facility]) Name Value Range Interpretation Code Description Data Giovana rce(s) Supporting Document(s) Thyrotropin [Units/volume] in Serum or Plasma Laboratory test result [facility] ([facility]) Thyroxine (T4) free [Mass/volume] in Serum or Plasma Laboratory alok t result [facility] ([facility]) Immunoglobulin light chains.kappa.free [Mass/volume] i n Serum Laboratory test result [facility] ID Date Data Source [id number] 02/23/2020 04:35:00 PM EDT [facility] Name Value Range Interpretation Code Description Data Giovana rce(s) Supporting Document(s) Thyroxine (T4) free index in Serum or Plasma by calculation 0.85 NG/DL 0.93 - 1.70 L [facility] ID Date Data Source [id number] 02/23/2020 04:33:00 PM EDT [facility] Name Value Range Interpretation Code Description Data Giovana rce(s) Supporting Document(s) Thyrotropin [Units/volume] in Serum or Plasma by Detec tion limit <= 0.05 mIU/L 1.92 uIU/mL 0.47 - 5.01 [facility] ID Date Data Source [id number] 02/23/2020 04:19:00 PM EDT [facility] Name Value Range Interpretation Code Description Data Giovana rce(s) Supporting Document(s) CBC W/AUTOMATED DIFF [facility] COMPLETE BLOOD COUNT Leukocytes [#/volume] in Blood by Automated count 10.6 10^3/uL 4.2 - 11.0 [facility] Erythrocytes [#/volume] in Blood by Automated count 5.78 10^6/uL 4. 50 - 6.30 [facility] Hemoglobin [Mass/volume] in Blood 16.3 g/dL 14.0 - 16.0 H [facility] Hematocrit [Volume Fraction] of Blood by Automated count 51.1 % 4 1.0 - 51.0 H [facility] Erythrocyte mean corpuscular volume [Entitic volume] by Auto mated count 88.4 fL 80.0 - 94.0 [facility] Erythrocyte mean corpuscular hemoglobin [Entitic mass] by Automated count 28.2 pg 27.0 - 34.0 [facility] Erythrocyte mean corpuscular hemoglobin concentration [Mass/volume] by Automated count 31.9 g/dL 31.0 - 36.0 [facility] Erythrocyte distribution width [Ratio] by Automated count 13.5 % 11.5 - 14.8 [facility] Platelets [#/volume] in Blood by Automated count 262 10^3/uL 150 - 45 0 [facility] Platelet mean volume [Entitic volume] in Blood by Automated count 9.6 fL 7.4 - 10.4 [facility] Neutrophils/100 leukocytes in Blood by Automated count 65.2 % 37. 0 - 80.0 [facility] Lymphocytes/100 leukocytes in Blood by Manual count 18.6 % 25.0 - 40.0 L [facility] Monocytes/100 leukocytes in Blood by Automated count 7.6 % 3.0 - 8.0 [facility] Eosinophils/100 leukocytes in Blood by Automated count 7.6 % 0.0 - 7.0 H [facility] Basophils/100 leukocytes in Blood by Automated count 0.5 % 0.0 - 2.0 [facility] %IG 0.5 % 0.0 - 0.0 H [facility] %NRBC 0.0 % 0.0 - 0.0 [facility] al Neutrophils [#/volume] in Blood by Automated count 6.92 10^3/uL 2.00 - 6.90 H [facility] Lymphocytes [#/volume] in Blood by Automated count 1.97 10^3/uL 0.60 - 3.40 [facility] Monocytes [#/volume] in Blood by Automated count 0.81 10^3/uL 0.00 - 0.90 [facility] Eosinophils [#/volume] in Blood by Automated count 0.81 10^3/uL 0.00 - 0.70 H [facility] Basophils [#/volume] in Blood by Automated count 0.05 10^3/uL 0.00 - 0.20 [facility] #IG 0.05 10^3/uL 0.00 - 0.10 [facility] #NRBC 0.00 10^3/uL 0.00 - 0.00 [facility] MANUAL DIFF NOT INDICATED [facility] RBC MORPH NOT INDICATED [facility] spital ID Date Data Source [id number] 02/23/2020 04:14:00 PM EDT [facility] Name Value Range Interpretation Code Description Data Giovana rce(s) Supporting Document(s) COMPREHENSIVE METABOLIC PANEL [facility] COMPREHENSIVE METABOLIC PANEL Sodium [Moles/volume] in Serum or Plasma 141 mEq/L 134 - 153 [facility] Potassium [Moles/volume] in Serum or Plasma 3.8 mEq/L 3.6 - 5.0 [facility] Chloride [Moles/volume] in Serum or Plasma 103 mEq/L 98 - 107 [facility] Carbon dioxide, total [Moles/volume] in Serum or Plasma 25 MEQ/L 22 - 30 [facility] Glucose [Mass/volume] in Serum or Plasma 86 MG/DL 65 - 110 [facility] BUN 8 MG/DL 7 - 21 [facility] Creatinine [Mass/volume] in Serum or Plasma 0.9 MG/DL 0.7 - 1.5 [facility] BUN/CREAT 9 8 - 27 [facility] Protein [Mass/volume] in Serum or Plasma 7.8 G/DL 6.3 - 8.2 [facility] Albumin [Mass/volume] in Serum or Plasma 4.3 G/DL 3.9 - 5.0 [facility] Globulin [Mass/volume] in Serum by calculation 3.5 GM/DL 2.4 - 3.2 H [facility] A/G RATIO 1.2 0.8 - 2.0 [facility] Calcium [Mass/volume] in Serum or Plasma 9.4 MG/DL 8.4 - 10.2 [facility] Bilirubin.total [Mass/volume] in Serum or Plasma <0.7 MG/DL 0.2 - 1.3 [facility] Alkaline phosphatase [Enzymatic activity/volume] in Serum or Plasma 101 U/L 38 - 126 [facility] Aspartate aminotransferase [Enzymatic activity/volume] in Serum or Plasma 19 U/L 5 - 40 [facility] Alanine aminotransferase [Enzymatic activity/volume] in Seru m or Plasma 35 U/L 7 - 56 [facility] Anion gap 3 in Serum or Plasma 13.0 mmol/L 8.0 - 16.0 [facility] AGE 29 yrs [facility] NON-AA GFR >60 mL/min [facility] ital AFR AMER GFR >60 mL/min [facility] spital Male GFR In [...] >32 mL/min Normal ID Date Data Source [id number] 02/23/2020 04:05:00 PM EDT [facility] Name Value Range Interpretation Code Description Data Giovana rce(s) Supporting Document(s) Hemoglobin A1c/Hemoglobin.total in Blood 4.9 % 4.4 - 6.1 [facility] {A1]{HB] ID Date Data Source [id number] 02/10/2020 09:57:30 AM EDT [facility] INFORMATIONPatient MRN Name Date of Age Gend*PT [id number] Nick Trujillo 1990 29 years M SDCPT Location Admission Date/Time [facility] --- --- EPI ID CSN Admitting Provider [id number] Robert Tamayo MD([id number]) [place] [address] OPERATIVE REPORT OPNAME: NICK TRUJILLO#: [id number] #: [id number] ADMISSION DATE: 02/09/2020DOB: 1990 SEX: M PT TYPE: H SURACCT #: [id number] CARE PHYSICIAN: ADITYA HELLERDATE OF OPERATION: 020PREOPERATIVE [...] reversal of general anesthesia.SANIA MENDOZA/QUEENIE Job #: [id number] DOC #: [id number] Name Value Range Interpretation Code Description Data Giovana rce(s) Supporting Document(s) ID Date Data Source [id number] 02/09/2020 02:36:21 PM EDT [facility] TINEO SPEC EXP DATE 02/12/2020PATI ENT ABO/Rh A NEGATIVEANTIBODY SCREEN NEGATIVETESTING SITE PERFORMED AT [address] [place] [address] [id number] BANK COMMENT BLOOD TYPE CONFIRMED. Name Value Range Interpretation Code Description Data Giovana rce(s) Supporting Document(s) TYPE AND SCREEN [facility] ID Date Data Source [id number] 02/08/2020 07:24:25 AM EDT [facility] NT INFORMATIONPatient MRN Name Date of Age Gend*PT [id number] Nick Trujillo 1990 29 years M OPPT Location Admission Date/Time Visit ID Attending Provider --- --- --- Robert Tamayo MD([id number]) EPI ID CSN Admitting Provider [id number] ---OUTPATIENT / OBSERVATIONAL SURGICAL OR INVASIVE PROCEDUREName: [...] bynebulization every 12 (twelve) hours Historical Provider, MDgabapentin (NEURONTIN) 100 MG capsule Take 100 mg by mouth nightlyHistorical Provider, MDgemfibrozil (LOPID) 600 MG tablet Take 600 mg by mouth 2 (two) times a daybefore meals Historical Provider, MDibuprofen (ADVIL,MOTRIN) 600 MG tablet Take 600 mg [...] mouth 2 (two) times a dayHistorical Provider, MDSUMAtriptan (IMITREX) 100 MG tablet Take 100 mg by mouth at onset of headache.May repeat once after 2 hours if needed. Historical Provider, topiramate (TOPAMAX) 200 MG tablet Take 200 mg by mouth 2 (two) times a dayHistorical Provider, Umeclidinium [place] (INCRUSE ELLIPTA) 62.5 MCG/INH AEPB Inhale 1 [...] thyromegaly. No carotid bruits.MENTAL / NEUROLOGICAL STATUS: [id number]: Clear to auscultation. No wheezes, rhonchi or [...] parts of this document, were dictated using [employer] software. A reasonable attempt at proofreading has beenmade to minimize errors. Please call with any questions or corrections.* Name Value Range Interpretation Code Description Data Giovana rce(s) Supporting Document(s) ID Date Data Source [id number] 02/04/2020 12:14:57 PM EDT [facility] Name Value Range Interpretation Code Description Data Giovana rce(s) Supporting Document(s) EKG [facility] TPZVKj1xBzYWYcEsn8SsLhNeKRJkSY6seby5L5C9uQTgA9KiyFNuw7glK1BeQ7MwQITaSXTDDO2XxQKe jb2 [file] glmqIgIep5XzJaibvgkBqv3wvlorteYwN5v0w0SuCv 2iu4i2p6J3NBqIsn0c9c0E80DkJqx3e9m2Zc7Eywrp4q9s1Ls7DLdecX7P8gCz/3dCkq7Kr2/a/Oji/P gbzw1nl3/P+qubJv75bPNXXnJAxzs76XC9/EtLke5Zl158iiNhyocNHuW6rFLXJh8SZRPFxs9VEgw4Wx QQBVj0FNgt1zqTXJJtpz3mCRyidrQeAOjRl70iHyf7 tMWIVxabZ8uFN/uxTExNE/uxTUyNE/uxTkzNE/klF4kWXCpxQSuIEBfmMGwNAZa/VmUxK3/aqYaK/Vgq pqaK/dgqpsaK/VgrpuaK/dgrpgaL/VgspiaL/dgspkaL/VgtpmaL/dgtpoaL/VgupqaL/dgupsaL/Vgv puaL/dgvpgaM/VgwpiaM/dgwpkaM/VgxpmaMjX/1na CFP+1UU8Z+wEkVQ5V+hHcSs9Y+6YeZl8J+EDrXp6G+xEdHs7M+iVaUi3B+7DoRu7ei17aK0/iv45siJ/ Oo8MblD/Xx87gcBGHe7JbbHXAa27ebTiDd7BdvRhDk77ebOxDt2GtxEeBz97zmU/Dt4FhgG/Os30mePD Pj9NkrMIXo34ivReEk9OchIzXh99mpVhBt+ZiaPvZj +5gaP/Zj/ZiaP/Zj/3nlUGPkVUeuGSAzP9kmSrBuXYuaXpMnW6wmObMuIIdmWkDnS8gzM/ZjDZmaQ/Zj D7naQ/9nF5msX/3rJ4prK/2qY5ilZ/4xO8abC/8aE2abZ/4pE6vrG/7oL4duY/5oV4fsS/0mQ5zfF/5j D7naQ/7bD0buZ/9bO1uqV/2oJ7vzC/1zR5pdT/5jD7 naQ/74K3Y0jR66jDrQdj/aoymbND/tLNs0v/h5BtTfd4bzkLQ88pCKdCmq5FqdGlKdO5ncV/8cE5jhA/ 0eQ5jjN/8wS3gpI/4xO0ktE/8nE6znZ/9mQ2joJ/2hT8ulX/5wS0lbR/6jW3sxU/8sF6ysA/0iK5jgJ/ 1lL7lxV/0nU7acV/7cS4olM/5gG1cxO/9zZ2dkZ/5j D7naQ/4pZ6rfX/4mX5fsZ/8mH6mpF/8rR9coN/7iK0ibV/1qD1urS/8wK0xaQ/1pW9peN/6aS7ivP/5j D7naQ/1pE5imZ/6uK2pwP/7sY4ofT/5fM5wbS/2uH4zoC/6oX5ugQ/5jD/MpWbf2RI/L4WHqVSdNmyOa JqlwF3canqRwUN4DsaM4EoquXqAruQs4y1Y7ys4fiY 0od0wi99F8LqqOpE1H52I6PZ5m26V4YcaTyO5K05H7BJ7k73P6BwfIuQ4N38C0ID7k68G7HqhWhQ8y70 K4QA5h95D5LygPsU7t14T5EN2n53N3RbobxC6X6eA4VMLgM3U3C7kjkI0D7uE0XPBmD3O1MNRYla/Q9g kov1V0yAXnbW7q4SkeB7l7UkrH9m8P4kP9W5C4ty6Y tW3up1JsP4lp6Bjvwab0ApouXT5CxedJ15DbusI6tYNvnG0r1NkpN1l1AehI5r7W9uekb0T3IF7I9ESG bc/S2kqex3K7VH0I1FQOyg/N1xaaw3J1XG7O0EYvib/O8ualb4I0FA5U1dOgjl/R7qqwf7J1WJ7A2aPm bc/D4jenp8B7FHv2PUuux1A6AsOW1nkED6P9bTLXJr cVWYNtmU0M2pgDvmKxd+yUynnacI7O+6l4t5f9oSGPXsiknW0V+1x6j3t0qUQmco4MlvmUN6XcnzbH2T yqFaJNU8KOTENPmlHtKEoqHvkYQHpaFKoBsMAOrevqZmVFjPDIBOBngDuQTjnMLnbWZJvEdcehqeqtFu QAhXzhfAHQ1FxpnvZYc7QXfRNEliRdIIbsFgjAC6gn AtnIasTFx4tREhACeMAoGQLcwGqWYtlJP0qSKLiCtnjaiejqOprSgHdayUkQ0S1jVmfYg2PHfVTF8qJj pKmfRdyNJVbxJskSi93Oxm30eZOt5Nmc4D3+MOISÉS/1wFima9YZwOho1n9daXpa6+2MML0MLeqdT2O7OpF [file] RMXgTjwiCb3pcMX5ULTiRwaHKq2Lv5PizsZ4ikXyPrP7RnV6BpKrQZ6O ID Date Data Source [id number] 02/04/2020 12:06:53 PM EDT [facility] NT INFORMATIONPatient MRN Name Date of Age Gend*PT [id number] Nick Trujillo 1990 29 years M OPPT Location Admission Date/Time Visit ID Attending Provider --- --- --- Robert Tamayo MD([id number]) EPI ID [facility] Admitting Provider [id number] ---OUTPATIENT / OBSERVATIONAL SURGICAL OR INVASIVE PROCEDUREName: [...] bynebulization every 12 (twelve) hours Historical Provider, MDgabapentin (NEURONTIN) 100 MG capsule Take 100 mg [...] 2 (two) times a dayHistorical Provider, Umeclidinium [place] (INCRUSE ELLIPTA) 62.5 MCG/INH AEPB Inhale 1 [...] thyromegaly. No carotid bruits.MENTAL / NEUROLOGICAL STATUS: [id number]: Clear to auscultation. No wheezes, rhonchi or [...] parts of this document, were dictated using [employer] speaking software. A reasonable attempt at proofreading has beenmade to minimize errors. Please call with any questions or corrections.* Name Value Range Interpretation Code Description Data Giovana e(s) Supporting Document(s) ID Date Data Source [id number] 02/04/2020 05:52:41 PM EDT [facility] Name Value Range Interpretation Code Description Data Giovana e(s) Supporting Document(s) SODIUM 140 mmol/L (136-145) [facility] POTASSIUM 4.0 mmol/L (3.6-5.2) [facility] CHLORIDE 106 mmol/L (100-108) [facility] CO2 25 mmol/L (22-31) [facility] ANION GAP 9 mmol/L (7-16) [facility] UREA NITROGEN 13 mg/dL (7-24) [facility] CREATININE 1.08 mg/dL (0.80-1.30) [facility] BUN/CREAT RATIO 12.0 RATIO (10.0-20.0) [facility] GLUCOSE 100 mg/dL (70-99) H [facility] CALCIUM 9.2 mg/dL (8.4-10.2) [facility] GFR >60 ml/min/1.73m2 (>59) [facility] GFR ( AMER) >60 ml/min/1.73m2 (>59) [facility] GFR INTERPRETATION [facility] --NORMAL KIDNEY FUNCTION OR MILD DISEASE - GFR >OR= 60CHRONIC KIDNEY DISEASE - GFR 15 - 59RENAL FAILURE - GFR <15 Est. GFR calculation based on the MDRDstudy equation, which assumes a steadystate for creatinine. Est. GFR should notbe used for medication dosing. ID Date Data Source [id number] 02/04/2020 05:35:33 PM EDT [facility] Name Value Range Interpretation Code Description Data Giovana rce(s) Supporting Document(s) WBC 9.2 10*3/uL (4.1-11.0) [facility] RBC 5.75 10*6/uL (4.60-6.10) [facility] HGB 16.6 g/dL (13.5-18.0) [facility] HCT 51.0 % (41.0-53.0) [facility] MCV 88.8 fL (80.0-95.0) [facility] MCH 28.8 pg (27.0-32.0) [facility] MCHC 32.5 g/dL (32.0-36.0) [facility] RDW 14.8 % (10.5-14.5) H [facility] PLT 233 10*3/uL (150-450) [facility] MPV 8.4 fL (7.1-10.7) [facility] ID Date Data Source [id number] 02/04/2020 09:45:00 AM EDT [facility] Name Value Range Interpretation Code Description Data Giovana rce(s) Supporting Document(s) [facility] This [facility] was ordered by [facility] and reported by [employer]. ID Date Data Source [id number] 02/05/2020 07:07:45 PM EDT [facility] Name Value Range Interpretation Code Description Data Giovana rce(s) Supporting Document(s) SARS-COV-2 TYRON [facility] Not DetectedReference range: Not Detecte d Testing was performed using the hailey(R) SARS-CoV-2 test. This test was developed and its performance characteristics determined by [employer]. This test has not been FDA cleared [...] detected) result in this assay. Performed At: [facility] [id number] Job Henson MD Ph:[phone] ID Date Data Source [id number] 01/31/2020 01:46:00 PM EDT [facility] A BDOMEN WO IV [...] rce(s) Supporting Document(s) ID Date Data Source [id number] 01/27/2020 11:08:00 AM EDT [facility] 1 OrderSheet [facility] Emergency Department [address] [place] [address] Phone #: ext- [phone] 01/27/2020 11:08 Patient: [...] 01/27/2020 12:29 TerryCatch) Milagros Morse MD; Bhanu RNLipase STAT 11:14 01/27/2020 11:15 [...] rce(s) Supporting Document(s) ID Date Data Source [id number] 01/27/2020 11:08:00 AM EDT [facility] 1 Medication Reconciliation Report [facility] Emergency Department [address] [place] [address] Phone #: ext- [phone] 01/27/2020 11:08 Patient: [...] ODT Oral, prn 2 Medication Reconciliation Report [facility] Emergency Department [address] [place] [address] Phone #: ext- [phone] 01/27/2020 11:08 Patient: NICK TRUJILLO Sex: M : 1990 Age: 29yThe source(s) of the original Home Medication information:Not obtained.The following Medications were given to the patient in the Emergency Department:None.The following Medications were prescribed to the patient:None. Name Value Range Interpretation Code Description Data Giovana rce(s) Supporting Document(s) ID Date Data Source [id number] 01/27/2020 11:08:00 AM EDT [facility] 1 Medication Administration Record [facility] Emergency Department [address] [place] [address] Phone #: ext- [phone] 01/27/2020 11:08 Patient: NICK TRUJILLO Sex: M : 1990 Age: 29yWeight: 181.4 kgHeight/Length: 71 inBMI: 55.8ALLERGIES: Dilantin, Naproxsyn, Tylenol with codeinDate/Time Medication Administered Medication Ordered Name Value Range Interpretation Code Description Data Giovana rce(s) Supporting Document(s) ID Date Data Source [id number] 01/27/2020 11:08:00 AM EDT [facility] 1 General Instructions [facility] Emergency Department [address] [place] [address] Phone #: ext- [phone] 01/27/2020 11:08 Patient: [...] instructions verbalized by patient. 2 General Instructions [facility] Emergency Department [address] [place] [address] Phone #: ext- [phone] 01/27/2020 11:08 Patient: [...] or constipation Chronic cough 3 General Instructions [facility] Emergency Department [address] [place] [address] Phone #: ext- [phone] 01/27/2020 11:08 Patient: [...] be pushed back in. 4 General Instructions [facility] Emergency Department [address] [place] [address] Phone #: fzd- [phone] 01/27/2020 11:08 Patient: NICK TRUJILLO Sex: M [...] to the backCall 911 5 General Instructions [facility] Emergency Department [address] [place] [address] Phone #: ext- [phone] 01/27/2020 11:08 Patient: NICK TRUJILLO Sex: M : 1990 Age: 29yCall 911 if any of these occur: Severe pain, redness, or tenderness in the area near the hernia Pain worsens quickly and doesn't get better Inability to have a bowel movement or pass gas Fever of 100.4F (38C) or higher, or as directed by your healthcare provider [id number] [employer]. [address] [place] [address], [place] [address]. All rights reserved. This information is not intended as asubstitute for professional medical care. Always follow your healthcare professional's instructions. You have been given the following additional information: Hernia (Adult) No strenuous activity.(Electronically signed by Milagros Morse MD 01/28/2020 00:50) Name Value Range Interpretation Code Description Data Giovana rce(s) Supporting Document(s) ID Date Data Source [id number] 01/27/2020 11:08:00 AM EDT [facility] 1 Clinical Report - Nurses [facility] Emergency Department [address] [place] [address] Phone #: [phone]- [phone] 01/27/2020 11:08 Patient: NICK TRUJILLO Sex: M [...] or confirmed signs of infection present. --11:147 [facility]October, R.N.11:10 01/27/20. BP: 112/77. MAP: 88. HR: 95. RR: 20. O2 saturation: 98%. Temp: 99 F (oral). Pain levelnow: 03/06. --11:14 01/27/20 Suha, October, R.N.Weight: 181.4 kg measured. Height/Length: 71 [...] --11:01/27/20 [facility]ish[facility]oberCatalino 2 Clinical Report - Nurses [facility] Emergency Department [address] [place] [address] Phone #: ext- [phone] 01/27/2020 11:08 Patient: [...] treatment room. --11:14 01/27/20 Alysha Borden R.N.PHYSICAL YLZLPBLYNI05:15 01/27/20. To room via stretcher.GENERAL / NEURO / PSYCH: Alert. Oriented X 4. Appears in no acute distress. Appears in pain.RESPIRATORY: Respirations not labored. Breath sounds within normal limits. 3 Clinical Report - Nurses [facility] Emergency Department [address] [place] [address] Phone #: ext- [phone] 01/27/2020 11:08 Patient: [...] from the left antecubital space by tech. ([id number]). --11:52 01/27/20 Phillip Drummond RN 11:43 01/27/2020 [...] Patient transported to CT by wheelchair with information technology technician. ([id number]). --12:01 01/27/20 Phillip Drummond RN Checked patient name and birthdate: patient confirmed. Clean catch urine collected; sample sent to lab for urinalys is. Specimen labeled in the presence of the patient (8636). Patient returned from CT by wheelchair with information technology technician. (4815). --12:29 01/27/20 Phillip Drummond RN 11:40 01/27/20. [...] Patient verbalized understanding. Written instructions provided in Slovenian. The patient was discharged home and unaccompanied at time of discharge. He left ambulatory and via private vehicle. Driving (unknown). --13:30 01/27/20 Jennifer Russell R.N. 13:28 01/27/20. BP: 106/46. MAP: 66. HR: 83. RR: 20. O2 saturation: 96% on room air. Temp: 98.2 F 4 Clinical Report - Nurses [facility] Emergency Department [address] [place] [address] Phone #: ext- [phone] 01/27/2020 11:08 Patient: [...] rce(s) Supporting Document(s) ID Date Data Source [id number] 01/27/2020 11:08:00 AM EDT [facility] 1 Clinical Report - Physicians/Mid Levels [facility] Emergency Department [address] [place] [address] Phone #: ext- [phone] 01/27/2020 11:08 Patient: NICK TRUJILLO [facility]#: [id number] Sex: M : 1990 Age: 29y Arrived- [...] daily. 2 Clinical Report - Physicians/Mid Levels [facility] Emergency Department [address] [place] [address] Phone #: ext- [phone] 01/27/2020 11:08 Patient: NICK TRUJILLO Sex: M [...] EKG 3 Clinical Report - Physicians/Mid Levels [facility] Emergency Department [address] [place] [address] Phone #: ext- [phone] 01/27/2020 11:08 Patient: [...] mL/min 4 Clinical Report - Physicians/Mid Levels [facility] Emergency Department [address] [place] [address] Phone #: ext- [phone] 01/27/2020 11:08 Patient: NICK TRUJILLO Sex: M : 1990 Age: 29y Male GFR Interprentation 20-49 yrs >60 mL/min Dbatdr63-16 yrs >56 mL/min Normal 60-69 yrs >49 mL/min Normal 70- 79yrs>42 mL/min Normal 80 and above >35 mL/min Normal Female GFRInterpretation 20-39 yrs >60 mL/min Normal 40-49 yrs >58 mL/minNormal 50-59 yrs >51 mL/min Normal 60-69 yrs >45 mL/min Myofby64-50 yrs >39 mL/min Normal 80 and above >32 mL/min NormalLactic Acid: (KAVITA: 01/27/2020 11:27) ( [facility] 01/27/[facility] 12:10) Final results Test Result Flag [...] CT ABD //T// PELVIS W/ IV ONLY [facility] [address] [place] [address] PHONE: [phone] FAX: [phone] Name .................. : GAVIOTA ROMERO Los Acct Number.................. : [id number] ROOM. ................. : TR-07 MR Number ................... : [id number] Stay type ............. : E/R Discharge Date......... ... : Admit Date ......... : 01/27/20 Admit Phys .................... : COONEYNORM Date of ....... : 1990 Family Phys ................... : HESTER HARD Phone .................. : [phone] Age ................................ : 29 Film# .................. .:[id number] Sex ................................. : M Unsigned transcriptions are preliminary reports and do not represent a medical or legal document CT ABD Reason(s): Abdominal Pain 5 Clinical Report - Physicians/Mid Levels [facility] Emergency Department [address] [place] [address] Phone #: ext- [phone] 01/27/2020 11:08 Patient: NICK TRUJILLO Sex: M [...] 370Method of administration: Intravenous [address] [place] [place] [address] [place] [address]WSCCJ: [phone] FAX: [phone] .................. : GAVIOTA Madison Acct Number.................. : [id number]. ................. : TR-07 MR Number ................... : [id number] type ............. : E/R Discharge Date......... ... :Admit Date ......... : 01/27/20 Admit Phys .................... : COONEYNORMDate of ....... : 1990 Family Phys ................... : HESTER HARDPhone .................. : [phone] Age ................................ : 29Film# .................. .:[id number] Sex ................................. : MUnsigned transcriptions are preliminary reports and do not represent a medical or legal document CT ABD Reason(s): Abdominal PainExamination dictated by CLYDE Gallego. Examination was reviewed with Cortez Rice MD, radiologist at the time of this dictation. Electronically Reviewed and Signed ByDCTNAME , SIGNDATE, GMM 6 Clinical Report - Physicians/Mid Levels [facility] Emergency Department [address] [place] [address] Phone #: ext- [phone] 01/27/2020 11:08 Patient: [...] MEDICATIONS: 7 Clinical Report - Physicians/Mid Levels [facility] Emergency Department [address] [place] [address] Phone #: ext- [phone] 01/27/2020 11:08 Patient: [...] rce(s) Supporting Document(s) ID Date Data Source [id number] 01/27/2020 01:49:00 [place] [address] PHONE: [phone] FAX: [phone] Name .................. : GAVIOTA Madison Acct Number.................. : [id number] ROOM. ................. : TR-07 MR Number ................... : [id number] Stay type ............. : E/R Discharge Date......... ... : Admit Date ......... : 09/16 Admit Phys .................... : COONEYNORM Date of ....... : 1990 Family Phys ................... : [facility] HARD Phone .................. : [phone] Age ................................ : 29 Film# .................. .:[id number] Sex ................................. : M Unsigned transcriptions are preliminary reports and do not represent a medical or legal document CT ABD & PELVIS W/ IV ONLY [id number] COMPLETE:01/27/20 12:41 [facility] [address] Reason(s): Abdominal Pain CT SCAN OF THE [...] of administration: Intravenous [address] [place] [address] PHONE: [phone] FAX: [phone] Name .................. : GAVIOTA ROMERO Los Acct Number.................. : [id number] ROOM. ................. : TR-07 MR Number ................... : [id number] Stay type ............. : E/R Discharge Date......... ... : Admit Date ......... : 01/27/20 Admit Phys .................... : COONEYNORM Date of ....... : 1990 Family Phys ................... : HESTER HARD Phone .................. : [phone] Age ................................ : 29 Film# .................. .:[id number] Sex ................................. : M Unsigned transcriptions are preliminary reports and do not represent a medical or legal document CT ABD & PELVIS W/ IV ONLY [id number] COMPLETE:01/27/20 12:41 [facility] [address] Reason(s): Abdominal Pain Examination dictated by CLYDE Gallego. Examination was reviewed with Cortez Sinha MD, radiologist at the time of this dictation. Electronically Reviewed and Signed By CORTEZ SINHA MD , 01/27/20 13:49, [facility] Transcribe Initials: SSR, Transcribe Date: 01/27/20 12:55, Dictation Date: Copy for: 010 EMERGENCY SRV Copy for: EMERGENCY DEPT via new [place] Copy for: 710 MED REC Page 2 of 2 Name Value Range Interpretation Code Description Data Giovana rce(s) Supporting Document(s) ID Date Data Source [id number] 01/27/2020 12:10:00 PM EDT [facility] ([facility]) Name Value Range Interpretation Code Description Data Giovana rce(s) Supporting Document(s) Urinalysis Laboratory test result [facility] ([facility]) SOURCE: Clean Catch Source Laboratory test result [facility] ([facility]) SOURCE: Clean Catch Color Laboratory test result [facility] ([facility]) SOURCE: Clean Catch Spec [place] 1.005 1.001-1.030 [facility] ([facility]) SOURCE: Clean Catch Clarity Laboratory test result [facility] ([facility]) SOURCE: Clean Catch Bilirubin Laboratory test result [facility] ([facility]) SOURCE: Clean Catch Glucose Laboratory test result [facility] ([facility]) SOURCE: Clean Catch pH 6.5 5-9 [facility] ([facility]) SOURCE: Clean Catch Protein Laboratory test result [facility] ([facility]) SOURCE: Clean Catch Ketone Laboratory test result [facility] ([facility]) SOURCE: Clean Catch Blood Laboratory test result [facility] ([facility]) SOURCE: Clean Catch Nitrite Laboratory test result [facility] ([facility]) SOURCE: Clean Catch Microscopic Laboratory test result M [facility] ([facility]) SOURCE: Clean Catch Leuk Est 25 [facility] ([facility]) SOURCE: Clean Catch Urobilinogen Laboratory test result [facility] ([facility]) SOURCE: Clean Catch WBC Laboratory test result [facility] ([facility]) SOURCE: Clean Catch Epithelial Laboratory test result [facility] ([facility]) SOURCE: Clean Catch ID Date Data Source [id number] 01/27/2020 12:53:00 PM EDT [facility] Name Value Range Interpretation Code Description Data Giovana rce(s) Supporting Document(s) [facility] COL[facility] yellow NORMAL: Yellow [facility] CLARITY clear NORMAL: Clear [facility] Specific gravity of Urine by Test strip 1.005 1.001 - 1.030 [facility] pH 6.5 5 - 9 [facility] al Glucose [Mass/volume] in Urine by Test strip NORM NORMAL: Negat [facility] Bilirubin.total [Presence] in Urine by Test strip NEG NORMAL: Negative [facility] Ketones [Presence] in Urine by Test strip NEG NORMAL: Negative [facility] Protein [Mass/volume] in Urine by Test strip NEG NORMAL: Negat [facility] Nitrite [Presence] in Urine by Test strip NEG NORMAL: Negative [facility] BLOOD NEG NORMAL: Negative [facility] Leukocyte esterase [Presence] in Urine by Test strip 25 MILAGROS L: Negative [facility] Urobilinogen [Mass/volume] in Urine by Test strip NOR less vanessa n 1.0 mg/dL [facility] MICROSCOPIC See Below [facility] ital WBC 0 - 1 NORMAL: NONE SEEN [facility] EPITHELIAL FEW NORMAL: NONE SEEN [facility] ID Date Data Source [id number] 01/27/2020 11:27:00 AM EDT [facility] ([facility]) Name Value Range Interpretation Code Description Data Giovana rce(s) Supporting Document(s) Lipase [Enzymatic activity/volume] in Serum or Plasma 29 U/L 13-6 0 [facility] ([facility]) ID Date Data Source [id number] 01/27/2020 11:27:00 AM EDT [facility] ([facility]) Name Value Range Interpretation Code Description Data Giovana rce(s) Supporting Document(s) Comprehensive [employer] Laboratory test result [facility] ([facility]) COMPREHENSIVE METABOLIC PANEL Sodium 138 meq/L 134-153 [facility] ([facility]) Chloride 102 meq/L 98-107 [facility] ([facility]) Potassium 3.8 meq/L 3.6-5.0 [facility] ([facility]) Co2 26 meq/L 22-30 [facility] ([facility]) Glucose 102 mg/dL 65-110 [facility] ([facility]) Creatinine 1.0 mg/dL 0.7-1.5 [facility] ([facility]) BUN 10 mg/dL 7-21 [facility] ([facility]) BUN/Creat 10 8-27 [facility] ([facility]) Albumin 4.4 g/dL 3.9-5.0 [facility] ([facility]) Globulin 3.0 GM/DL 2.4-3.2 [facility] ([facility]) Total Protein 7.4 g/dL 6.3-8.2 [facility] ([facility]) Calcium 9.3 mg/dL 8.4-10.2 [facility] ([facility]) Total Bili Laboratory test result 0.2-1.3 ME [facility] ([facility]) A/G Ratio 1.5 0.8-2.0 [facility] ([facility]) Alkaline Phos 96 U/L 38-126 [facility] ([facility]) SGPT/Alt 27 U/L 7-56 [facility] ([facility]) Sgot/Ast 18 U/L 5-40 [facility] ([facility]) Anion Gap 10.0 mmol/L 8.0-16.0 [facility] ([facility]) Non-Aa GFR Laboratory test result [facility] ([facility]) Age 29 yrs [facility] ([facility]) Afr Amer GFR Laboratory test result [facility] ([facility]) Male GFR Interprentation 20-49 yrs [...] >32 mL/min Normal ID Date Data Source [id number] 01/27/2020 11:27:00 AM EDT [facility] ([facility]) Name Value Range Interpretation Code Description Data Giovana rce(s) Supporting Document(s) CBC W/Automated Diff Laboratory test result [facility] ([facility]) COMPLETE BLOOD COUNT Hemoglobin 15.9 g/dL 14.0-16.0 [facility] ([facility]) RBC 5.61 10^6/uL 4.50-6.30 [facility] ([facility]) WBC 8.8 10^3/uL 4.2-11.0 [facility] ([facility]) Hematocrit 49.5 % 41.0-51.0 [facility] ([facility]) MCV 88.2 fL 80.0-94.0 [facility] ([facility]) MCH 28.3 pg 27.0-34.0 [facility] ([facility]) RDW 13.8 % 11.5-14.8 [facility] ([facility]) Platelets 197 10^3/uL 150-450 [facility] ([facility]) MPV 9.0 fL 7.4-10.4 [facility] ([facility]) MCHC 32.1 g/dL 31.0-36.0 [facility] ([facility]) Lymph 21.5 % 25.0-40.0 Below low normal [facility] ( [facility]) Navarro 8.4 % 3.0-8.0 Above high normal [facility] ([facility]) Neut 66.9 % 37.0-80.0 [facility] ([facility]) Eos 2.7 % 0.0-7.0 [facility] ([facility]) Baso 0.2 % 0.0-2.0 [facility] ([facility]) %Ig 0.3 % 0.0-0.0 Above high normal [facility] ([facility]) #Lymph 1.90 10^3/uL 0.60-3.40 [facility] ([facility]) %NRBC 0.0 % 0.0-0.0 [facility] ([facility]) #Neut 5.91 10^3/uL 2.00-6.90 [facility] ([facility]) #Baso 0.02 10^3/uL 0.00-0.20 [facility] ([facility]) #Ig 0.03 10^3/uL 0.00-0.10 [facility] ([facility]) #Eos 0.24 10^3/uL 0.00-0.70 [facility] ([facility]) #Navarro 0.74 10^3/uL 0.00-0.90 [facility] ([facility]) RBC Morph Laboratory test result [facility] ([facility]) #NRBC 0.00 10^3/uL 0.00-0.00 [facility] ([facility]) Manual Diff Laboratory test result M [facility] ([facility]) ID Date Data Source [id number] 01/27/2020 11:27:00 AM EDT [facility] ([facility]) Name Value Range Interpretation Code Description Data Giovana rce(s) Supporting Document(s) Lactate [Mass/volume] in Serum or Plasma 1.8 mmol/L 0.2-2.2 [facility] ([facility]) ID Date Data Source [id number] 01/27/2020 12:26:00 PM EDT [facility] Name Value Range Interpretation Code Description Data Giovana rce(s) Supporting Document(s) Lipase [Enzymatic activity/volume] in Serum or Plasma 29 U/L 13 - 60 [facility] ID Date Data Source [id number] 01/27/2020 12:26:00 PM EDT [facility] Name Value Range Interpretation Code Description Data [facility](s) Supporting Document(s) COMPREHENSIVE METABOLIC PANEL [facility] COMPREHENSIVE METABOLIC PANEL Sodium [Moles/volume] in Serum or Plasma 138 mEq/L 134 - 153 [facility] Potassium [Moles/volume] in Serum or Plasma 3.8 mEq/L 3.6 - 5.0 [facility] Chloride [Moles/volume] in Serum or Plasma 102 mEq/L 98 - 107 [facility] Carbon dioxide, total [Moles/volume] in Serum or Plasma 26 MEQ/L 22 - 30 [facility] Glucose [Mass/volume] in Serum or Plasma 102 MG/DL 65 - 110 [facility] BUN 10 MG/DL 7 - [facility] Creat[facility] [Mass/volume] in Serum or Plasma 1.0 MG/DL 0.7 - 1.5 [facility] BUN/CREAT 10 8 - 27 [facility] Protein [Mass/volume] in Serum or Plasma 7.4 G/DL 6.3 - 8.2 [facility] Albumin [Mass/volume] in Serum or Plasma 4.4 G/DL 3.9 - 5.0 [facility] Globulin [Mass/volume] in Serum by calculation 3.0 GM/DL 2.4 - 3.2 [facility] A/G RATIO 1.5 0.8 - 2.0 [facility] Calcium [Mass/volume] in Serum or Plasma 9.3 MG/DL 8.4 - 10.2 [facility] Bilirubin.total [Mass/volume] in Serum or Plasma <0.7 MG/DL 0.2 - 1.3 [facility] Alkaline phosphatase [Enzymatic activity/volume] in Serum or Plasma 96 U/L 38 - 126 [facility] Aspartate aminotransferase [Enzymatic activity/volume] in Serum or Plasma 18 U/L 5 - 40 [facility] Alanine aminotransferase [Enzymatic activity/volume] in Seru m or Plasma 27 U/L 7 - 56 [facility] Anion gap 3 in Serum or Plasma 10.0 mmol/L 8.0 - 16.0 [facility] AGE 29 yrs [facility] NON-AA GFR >60 mL/min [facility] Hosp ital AFR AMER GFR >60 mL/min [facility] Ho spital Male GFR In [...] >32 mL/min Normal ID Date Data Source [id number] 01/27/2020 12:13:00 PM EDT [facility] Name Value Range Interpretation Code Description Data Giovana rce(s) Supporting Document(s) CBC W/AUTOMATED DIFF [facility] COMPLETE BLOOD COUNT Leukocytes [#/volume] in Blood by Automated count 8.8 10^3/uL 4.2 - 1 1.0 [facility] Erythrocytes [#/volume] in Blood by Automated count 5.61 10^6/uL 4. 50 - 6.30 [facility] Hemoglobin [Mass/volume] in Blood 15.9 g/dL 14.0 - 16.0 [facility] Hematocrit [Volume Fraction] of Blood by Automated count 49.5 % 4 1.0 - 51.0 [facility] Erythrocyte mean corpuscular volume [Entitic volume] by Auto mated count 88.2 fL 80.0 - 94.0 [facility] Erythrocyte mean corpuscular hemoglobin [Entitic mass] by Automated count 28.3 pg 27.0 - 34.0 [facility] Erythrocyte mean corpuscular hemoglobin concentration [Mass/volume] by Automated count 32.1 g/dL 31.0 - 36.0 [facility] Erythrocyte distribution width [Ratio] by Automated count 13.8 % 11.5 - 14.8 [facility] Platelets [#/volume] in Blood by Automated count 197 10^3/uL 150 - 45 0 [facility] Platelet mean volume [Entitic volume] in Blood by Automated count 9.0 fL 7.4 - 10.4 [facility] Neutrophils/100 leukocytes in Blood by Automated count 66.9 % 37. 0 - 80.0 [facility] Lymphocytes/100 leukocytes in Blood by Manual count 21.5 % 25.0 - 40.0 L [facility] Monocytes/100 leukocytes in Blood by Automated count 8.4 % 3.0 - 8.0 H [facility] Eosinophils/100 leukocytes in Blood by Automated count 2.7 % 0.0 - 7.0 [facility] Basophils/100 leukocytes in Blood by Automated count 0.2 % 0.0 - 2.0 [facility] %IG 0.3 % 0.0 - 0.0 H [facility] Hospit al %NRBC 0.0 % 0.0 - 0.0 [facility] al Neutrophils [#/volume] in Blood by Automated count 5.91 10^3/uL 2.00 - 6.90 [facility] Lymphocytes [#/volume] in Blood by Automated count 1.90 10^3/uL 0.60 - 3.40 [facility] Monocytes [#/volume] in Blood by Automated count 0.74 10^3/uL 0.00 - 0.90 [facility] Eosinophils [#/volume] in Blood by Automated count 0.24 10^3/uL 0.00 - 0.70 [facility] Basophils [#/volume] in Blood by Automated count 0.02 10^3/uL 0.00 - 0.20 [facility] #IG 0.03 10^3/uL 0.00 - 0.10 [facility] ospital #NRBC 0.00 10^3/uL 0.00 - 0.00 [facility] ospital MANUAL DIFF NOT INDICATED [facility] RBC MORPH NOT INDICATED [facility] spital ID Date Data Source [id number] 01/27/2020 12:10:00 PM EDT [facility] Name Value Range Interpretation Code Description Data Giovana rce(s) Supporting Document(s) Lactate [Moles/volume] in Serum or Plasma 1.8 MMOL/L 0.2 - 2.2 [facility] ID Date Data Source [id number] 01/17/2020 02:07:00 PM EDT [facility] [address] [place] [address] PHONE: [phone] FAX: [phone] Name .................. : GAVIOTA Madison Acct Number.................. : [id number] ROOM. ................. : Number ................... : [id number] Stay type ............. : O/P Discharge Date......... ... : 01/17/20 Admit Date ......... : 01/17/20 Admit Phys .................... : [email or web address] Date of ....... : 1990 Family Phys ................... : [email or web address] Phone .................. : [phone] Age ................................ : 29 Film# .................. .:[id number] Sex ................................. : M Unsigned transcriptions are preliminary reports and do not represent a medical or legal document RIBS SYLVIE W/CLYDE CXR LT [id number] COMPLETE:01/17/20 10:15 BEM 61000 (REASON FOR CHEST: CHEST PAIN LEFT RIB [...] Date: 01/17/20 11:35, Dictation Date: Copy for: [address] [place] [address] REC Page 1 of 1 Name Value Range Interpretation Code Description Data Giovana rce(s) Supporting Document(s) ID Date Data Source [id number] 01/17/2020 01:27:00 [place] [address] PHONE: [phone] FAX: [phone] Name .................. : GAVIOTA Madison Acct Number.................. : [id number] ROOM. ................. : TR-02 Number ................... : [id number] Stay type ............. : E/R Discharge Date......... ... : 01/13/20 Admit Date ......... : 01/13/20 Admit Phys .................... : COONEYNORM Date of ....... : 1990 Family Phys ................... : MIR HARD Phone .................. : [phone] Age ................................ : 29 Film# .................. .:[id number] Sex ................................. : M Unsigned transcriptions are preliminary reports and do not represent a medical or legal document CT HEAD W/O CONTRAST [id number] COMPLETE:01/13/20 17:10 ALVAREZ 55684 Reason(s): Headache CT OF THE HEAD WITHOUT [...] rce(s) Supporting Document(s) ID Date Data Source [id number] 01/17/2020 01:26:00 PM EDT [facility] [address] [place] [address] PHONE: [phone] FAX: [phone] Name .................. : GAVIOTA Madison Acct Number.................. : [id number] ROOM. ................. : -02 MR Number ................... : [id number] Stay type ............. : E/R Discharge Date......... ... : 01/13/20 Admit Date ......... : 01/13/20 Admit Phys .................... : COONEYNORM Date of ....... : 1990 Family Phys ................... : [facility] HARD Phone .................. : [phone] Age ................................ : 29 Film# .................. .:[id number] Sex ................................. : M Unsigned transcriptions are preliminary reports and do not represent a medical or legal document CHEST PORTABLE [id number] COMPLETE:01/13/20 14:18 ARS 08874 Reason(s): Shortness of Breath PORTABLE CHEST X-RAY: FINDINGS: The cardiac and mediastinal silhouettes appear normal and the lungs are clear. The bones and soft tissues are normal. The upper abdomen is unremarkable. IMPRESSION: No acute disease identifiable. Electronically Reviewed and Signed By Mami Wernre MD , 01/17/20 13:26, [email or web address] Transcribe Initials: GUCCI , Transcribe Date: 01/13/20 19:46, Dictation Date: Copy for: EMERGENCY DEPT via modem Copy for: 710 MED REC DISCHARGED Page 1 of 1 Name Value Range Interpretation Code Description Data Giovana rce(s) Supporting Document(s) ID Date Data Source [id number] 01/13/2020 01:42:00 PM EDT [facility] 1 OrderSheet [facility] Emergency Department [address] [place] [address] Phone #: ext- [phone] 01/13/2020 13:41 Patient: [...] Zaragoza.NShayDIAGNOSTIC STUDY ORDERSOrder Description Priority Entered Acknowledged [facility] Portable 1 STAT 13:56 01/13/2020 14:01 Bruna,View Milagros Morse MD; Lacho MartinezNShay(Oxygen?(No)) NOTES: s/p seizure. r/o aspiration Reason for Study: Shortness of BreathCT Head W/O Cont STAT 15:46 01/13/2020 15:47 Bruna,(Oxygen?(No)) Milagros Morse MD; Lacho Bea NOTES: seizure Reason for Study: HeadacheMEDICATION/IV/DRIP/FLUID ORDERSOrder Description Priority Entered Acknowledged InitialedGENERAL ORDERSOrder Description Priority Entered Acknowledged Initialed 2 OrderSheet [facility] Emergency Department [address] [place] [address] Phone #: ext- [phone] 01/13/2020 13:41 Patient: NICK TRUJILLO Sex: M : 1990 Age: 29y[Electronically signed by Lacho Mcfarland R.N. (20:08 01/13/2020)][Electronically signed by Milagros Morse MD (22:42 01/15/2020)][Electronically locked by Lacho Mcfarland R.N. (20:08 01/13/2020)] Name Value Range Interpretation Code Description Data Giovana rce(s) Supporting Document(s) ID Date Data Source [id number] 01/13/2020 01:42:00 PM EDT [facility] 1 Medication Reconciliation Report [facility] Emergency Department [address] [place] [address] Phone #: ext- [phone] 01/13/2020 13:41 Patient: [...] ODT Oral, prn 2 Medication Reconciliation Report [facility] Emergency Department [address] [place] [address] Phone #: ext- [phone] 01/13/2020 13:41 Patient: NICK TRUJILLO Sex: M : 1990 Age: 29yThe source(s) of the original Home Medication information:Not obtained.The following Medications were given to the patient in the Emergency Department:None.The following Medications were prescribed to the patient:None. Name Value Range Interpretation Code Description Data Giovana rce(s) Supporting Document(s) ID Date Data Source [id number] 01/13/2020 01:42:00 PM EDT [facility] 1 Medication Administration Record [facility] Emergency Department [address] [place] [address] Phone #: ext- [phone] 01/13/2020 13:41 Patient: NICK TRUJILLO Sex: M : 1990 Age: 29yWeight: 177.8 kgHeight/Length: 71 inBMI: 54.7ALLERGIES: Dilantin, Naproxsyn, Tylenol with codeinDate/Time Medication Administered Medication Ordered Name Value Range Interpretation Code Description Data Giovana rce(s) Supporting Document(s) ID Date Data Source [id number] 01/13/2020 01:42:00 PM EDT [facility] 1 General Instructions [facility] Emergency Department [address] [place] [address] Phone #: ext- [phone] 01/13/2020 13:41 Patient: [...] instructions verbalized by patient. 2 General Instructions [facility] Emergency Department [address] [place] [address] Phone #: ext- [phone] 01/13/2020 13:41 Patient: NICK TRUJILLO Sex: M : 1990 Age: 29yNo driving or operating machinery.(Electronically signed by Milagros Morse MD 01/15/2020 22:42) Name Value Range Interpretation Code Description Data Giovana rce(s) Supporting Document(s) ID Date Data Source [id number] 01/13/2020 01:42:00 PM EDT [facility] 1 Clinical Report - Nurses [facility] Emergency Department [address] [place] [address] Phone #: ext [phone] 01/13/2020 13:41 Patient: NICK TRUJILLO Sex: M [...] Banda R.N.PROBLEMS:Hematuria.Asthma. 2 Clinical Report - Nurses [facility] Emergency Department [address] [place] [address] Phone #: ext- [phone] 01/13/2020 13:41 Patient: [...] treatment room. --13:52 01/13/20 Enedina Banda R.N.PHYSICAL [id number] 01/13/20. To room via stretcher.GENERAL / NEURO / PSYCH: Alert. Oriented X 4. Appears in no acute distress. No apparent seizureactivity. Speech within normal limits. Patient appears well-nourished. 3 Clinical Report - Nurses [facility] Emergency Department [address] [place] [address] Phone #: ext- [phone] 01/13/2020 13:41 Patient: [...] Mcfarland R.N. 16:22 01/13/20. Patient transported to [place] by wheelchair with information technology technician. --16:22 01/13/20 Lacho Mcfarland R.N. 16:30 01/13/20. Patient returned from CT by stretcher with information technology technician. --16:30 01/13/20 Lacho Mcfarland R.N. 17:01 [...] or numbness. 4 Clinical Report - Nurses [facility] Emergency Department [address] [place] [address] Phone #: ext- [phone] 01/13/2020 13:41 Patient: [...] Patient verbalized understanding. Written instructions provided in Slovenian. The patient was discharged by the physician. [...] rce(s) Supporting Document(s) ID Date Data Source [id number] 01/13/2020 01:42:00 PM EDT [facility] 1 Clinical Report - Physicians/Mid Levels [facility] Emergency Department [address] [place] [address] Phone #: ext- [phone] 01/13/2020 13:41 Patient: [...] daily. 2 Clinical Report - Physicians/Mid Levels [facility] Emergency Department [address] [place] [address] Phone #: ext- [phone] 01/13/2020 13:41 Patient: [...] Progress 3 Clinical Report - Physicians/Mid Levels [facility] Emergency Department [address] [place] [address] Phone #: ext- [phone] 01/13/2020 13:41 Patient: NICK TRUJILLO Sex: M : 1990 Age: 29yCT HEAD W/O CONTRASTReason(s): HeadacheTRANSPORTATION: S IV? O2? Oxygen?(No) Room: ED CMTS: seizureCBC w Diff: (KAVITA: 01/13/2020 14:13) ( [facility] 14[facility]28[facility] Final results Test Result Flag [...] 56) 4 Clinical Report - Physicians/Mid Levels [facility] Emergency Department [address] [place] [address] Phone #: ext- [phone] 01/13/2020 13:41 Patient: [...] mL/min Normal Lipase: (KAVITA: 01/13/2020 14:13) ( [facility] 01/13/2020 14:43) Final results Test Result Flag Units (Reference) LIPASE 32 U/L (13 - 60) Lactic Acid: (KAVITA: 01/13/2020 14:13) ( [facility] 01/13/[facility] 14:35) Final results Test Result Flag Units (Reference) LACTIC ACID 1.9 MMOL/L (0.2 - 2.2) Urinalysis: (KAVITA: 01/13/2020 13:56) ( [facility] 01/13/2020 14:06) Final results Test Result [...] Portable 1 View: (KAVITA: 01/13/2020 13:56) ( [facility] 01/13/2020 14:19) In Progress CHEST PORTABLE Reason(s): [...] any 5 Clinical Report - Physicians/Mid Levels [facility] Emergency Department [address] [place] [address] Phone #: ext- [phone] 01/13/2020 13:41 Patient: [...] patient. 6 Clinical Report - Physicians/Mid Levels [facility] Emergency Department [address] [place] [address] Phone #: [phone]- [phone] 01/13/2020 13:41 Patient: NICK TRUJILLO Sex: M : 1990 Age: 29y(Electronically signed by Milagros Morse MD 01/15/2020 22:42) Name Value Range Interpretation Code Description Data Giovana rce(s) Supporting Document(s) ID Date Data Source [id number] 12/31/2019 01:56:00 [place] [address] OPERATIVE SUMMARYNAME: GAVIOTA Madison DATE OF : 1990ATTENDING PHYS: SALVADOR KAMARA MD DATE: 12/31/19 MR#: [id number] PROCEDURE: 12/31/2019PRE-OPERATIVE DIAGNOSIS:Microscopic hematuria.POST-OPERATIVE DIAGNOSIS:Microscopic hematuria.PROCEDURE PERFORMED:Flexible cy stoscopy.ATTENDING SURGEON: Dr. Salvador Kamara.PHYSICIAN EXTRACTION OPERATOR: CLYDE Farias.ANESTHESIA: Local.ESTIMATED BLOOD LOSS: Minimal.COMPLICATIONS: [...] urethra. No dense or long strictures [address] [place] [address] OPERATIVE SUMMARYNAME: GAVIOTA Madison DATE OF : 1990ATTENDING PHYS: SALVADOR KAMARA MD DATE: 12/31/19 MR#: [id number] noted. The rest of the cystoscopy was [...] rce(s) Supporting Document(s) ID Date Data Source [id number] 01/13/2020 02:58:00 PM EDT [facility] ([facility]) Name Value Range Interpretation Code Description Data Giovana rce(s) Supporting Document(s) Topiramate [Mass/volume] in Serum or Plasma 8.7 ug/mL 2.0-25.0 [facility] ([facility]) This test was developed and its performa nce characteristics determined by [facility]. It has not been cleared or approved by the Food and Drug Administration. Detection Limit = 1.0 ID Date Data Source [id number] 01/17/2020 08:03:00 PM EDT [facility] Name Value Range Interpretation Code Description Data Giovana rce(s) Supporting Document(s) Topiramate [Mass/volume] in Serum or Plasma 8.7 ug/mL 2.0-25.0 [facility] This test was developed and its performa nce characteristicsdetermined by [facility]. It has not been cleared or approvedby the Food and Drug Administration. Detection Limit = 1.0 ID Date Data Source [id number] 01/13/2020 02:13:00 PM EDT [facility] ([facility]) Name Value Range Interpretation Code Description Data Giovana rce(s) Supporting Document(s) CBC W/Automated Diff Laboratory test result [facility] ([facility]) COMPLETE BLOOD COUNT WBC 8.6 10^3/uL 4.2-11.0 [facility] ([facility]) RBC 5.69 10^6/uL 4.50-6.30 [facility] ([facility]) Hemoglobin 16.2 g/dL 14.0-16.0 Above high normal [facility] ([facility]) Hematocrit 50.7 % 41.0-51.0 [facility] ([facility]) MCH 28.5 pg 27.0-34.0 [facility] ([facility]) MCV 89.1 fL 80.0-94.0 [facility] ([facility]) RDW 13.7 % 11.5-14.8 [facility] ([facility]) MCHC 32.0 g/dL 31.0-36.0 [facility] ([facility]) Platelets 212 10^3/uL 150-450 [facility] ([facility]) MPV 9.0 fL 7.4-10.4 [facility] ([facility]) Neut 68.4 % 37.0-80.0 [facility] ([facility]) Lymph 20.7 % 25.0-40.0 Below low normal [facility] ( [facility]) Navarro 7.7 % 3.0-8.0 [facility] ([facility]) Baso 0.1 % 0.0-2.0 [facility] ([facility]) Eos 2.9 % 0.0-7.0 [facility] ([facility]) %Ig 0.2 % 0.0-0.0 Above high normal [facility] ([facility]) #Neut 5.84 10^3/uL 2.00-6.90 [facility] ([facility]) %NRBC 0.0 % 0.0-0.0 [facility] ([facility]) #Lymph 1.77 10^3/uL 0.60-3.40 [facility] ([facility]) #Baso 0.01 10^3/uL 0.00-0.20 [facility] ([facility]) #Navarro 0.66 10^3/uL 0.00-0.90 [facility] ([facility]) #Eos 0.25 10^3/uL 0.00-0.70 [facility] ([facility]) #Ig 0.02 10^3/uL 0.00-0.10 [facility] ([facility]) RBC Morph Laboratory test result [facility] ([facility]) #NRBC 0.00 10^3/uL 0.00-0.00 [facility] ([facility]) Manual Diff Laboratory test result M [facility] ([facility]) ID Date Data Source [id number] 01/13/2020 02:13:00 PM EDT [facility] ([facility]) Name Value Range Interpretation Code Description Data Giovana rce(s) Supporting Document(s) Lipase [Enzymatic activity/volume] in Serum or Plasma 32 U/L 13-6 0 [facility] ([facility]) Lactate [Mass/volume] in Serum or Plasma 1.9 mmol/L 0.2-2.2 [facility] ([facility]) ID Date Data Source [id number] 01/13/2020 02:13:00 PM EDT [facility] ([facility]) Name Value Range Interpretation Code Description Data Giovana rce(s) Supporting Document(s) Comprehensive [employer] Laboratory test result [facility] ([facility]) COMPREHENSIVE METABOLIC PANEL Sodium 143 meq/L 134-153 [facility] ([facility]) Co2 24 meq/L 22-30 [facility] ([facility]) Chloride 108 meq/L 98-107 Above high normal [facility] ([facility]) Potassium 4.0 meq/L 3.6-5.0 [facility] ([facility]) Creatinine 0.9 mg/dL 0.7-1.5 [facility] ([facility]) BUN 12 mg/dL 7-21 [facility] ([facility]) Glucose 141 mg/dL 65-110 Above high normal [facility] ([facility]) Total Protein 7.6 g/dL 6.3-8.2 [facility] [facility]) Albumin 4.4 g/dL 3.9-5.0 [facility] ([facility]) BUN/Creat 13 8-27 [facility] ([facility]) Globulin 3.2 GM/DL 2.4-3.2 [facility] ([facility]) Calcium 9.1 mg/dL 8.4-10.2 [facility] ([facility]) A/G Ratio 1.4 0.8-2.0 [facility] ([facility]) Total Bili Laboratory test result 0.2-1.3 [facility] ([facility]) Alkaline Phos 96 U/L 38-126 [facility] ([facility]) Sgot/Ast 20 U/L 5-40 [facility] ([facility]) Age 29 yrs [facility] ([facility]) Anion Gap 11.0 mmol/L 8.0-16.0 [facility] ([facility]) SGPT/Alt 29 U/L 7-56 [facility] ([facility]) Non-Aa GFR Laboratory test result [facility] ([facility]) Afr Amer GFR Laboratory test result [facility] ([facility]) Male GFR Interprentation 20-49 yrs [...] >32 mL/min Normal ID Date Data Source [id number] 01/13/2020 02:56:00 PM EDT [facility] Name Value Range Interpretation Code Description Data Giovana rce(s) Supporting Document(s) COMPREHENSIVE METABOLIC PANEL [facility] COMPREHENSIVE METABOLIC PANEL Sodium [Moles/volume] in Serum or Plasma 143 mEq/L 134 - 153 [facility] Potassium [Moles/volume] in Serum or Plasma 4.0 mEq/L 3.6 - 5.0 [facility] Chloride [Moles/volume] in Serum or Plasma 108 mEq/L 98 - 107 [facility] Carbon dioxide, total [Moles/volume] in Serum or Plasma 24 MEQ/L 22 - 30 [facility] Glucose [Mass/volume] in Serum or Plasma 141 MG/DL 65 - 110 [facility] BUN 12 MG/DL 7 - 21 [facility] al Creatinine [Mass/volume] in Serum or Plasma 0.9 MG/DL 0.7 - 1.5 [facility] BUN/CREAT 13 8 - 27 [facility] Protein [Mass/volume] in Serum or Plasma 7.6 G/DL 6.3 - 8.2 [facility] Albumin [Mass/volume] in Serum or Plasma 4.4 G/DL 3.9 - 5.0 [facility] Globulin [Mass/volume] in Serum by calculation 3.2 GM/DL 2.4 - 3.2 [facility] A/G RATIO 1.4 0.8 - 2.0 [facility] Calcium [Mass/volume] in Serum or Plasma 9.1 MG/DL 8.4 - 10.2 [facility] Bilirubin.total [Mass/volume] in Serum or Plasma <0.7 MG/DL 0.2 - 1.3 [facility] Alkaline phosphatase [Enzymatic activity/volume] in Serum or Plasma 96 U/L 38 - 126 [facility] Aspartate aminotransferase [Enzymatic activity/volume] in Serum or Plasma 20 U/L 5 - 40 [facility] Alanine aminotransferase [Enzymatic activity/volume] in Seru m or Plasma 29 U/L 7 - 56 [facility] Anion gap 3 in Serum or Plasma 11.0 mmol/L 8.0 - 16.0 [facility] 29 [facility] >60 [facility]/min [facility] AFR AMER GFR >60 mL/min [facility] Male GFR In [...] >32 mL/min Normal ID Date Data Source [id number] 01/13/2020 02:43:00 PM EDT [facility] Name Value Range Interpretation Code Description Data Giovana rce(s) Supporting Document(s) Lipase [Enzymatic activity/volume] in Serum or Plasma 32 U/L 13 - 60 [facility] ID Date Data Source [id number] 01/13/2020 02:35:00 PM EDT [facility] Name Value Range Interpretation Code Description Data Giovana rce(s) Supporting Document(s) Lactate [Moles/volume] in Serum or Plasma 1.9 MMOL/L 0.2 - 2.2 [facility] ID Date Data Source [id number] 01/13/2020 02:27:00 PM EDT [facility] Name Value Range Interpretation Code Description Data Giovana rce(s) Supporting Document(s) CBC W/AUTOMATED DIFF [facility] COMPLETE BLOOD COUNT Leukocytes [#/volume] in Blood by Automated count 8.6 10^3/uL 4.2 - 1 1.0 [facility] Erythrocytes [#/volume] in Blood by Automated count 5.69 10^6/uL 4. 50 - 6.30 [facility] Hemoglobin [Mass/volume] in Blood 16.2 g/dL 14.0 - 16.0 H [facility] Hematocrit [Volume Fraction] of Blood by Automated count 50.7 % 4 1.0 - 51.0 [facility] Erythrocyte mean corpuscular volume [Entitic volume] by Auto mated count 89.1 fL 80.0 - 94.0 [facility] Erythrocyte mean corpuscular hemoglobin [Entitic mass] by Automated count 28.5 pg 27.0 - 34.0 [facility] Erythrocyte mean corpuscular hemoglobin concentration [Mass/volume] by Automated count 32.0 g/dL 31.0 - 36.0 [facility] Erythrocyte distribution width [Ratio] by Automated count 13.7 % 11.5 - 14.8 [facility] Platelets [#/volume] in Blood by Automated count 212 10^3/uL 150 - 45 0 [facility] Platelet mean volume [Entitic volume] in Blood by Automated count 9.0 fL 7.4 - 10.4 [facility] Neutrophils/100 leukocytes in Blood by Automated count 68.4 % 37. 0 - 80.0 [facility] Lymphocytes/100 leukocytes in Blood by Manual count 20.7 % 25.0 - 40.0 L [facility] Monocytes/100 leukocytes in Blood by Automated count 7.7 % 3.0 - 8.0 [facility] Eosinophils/100 leukocytes in Blood by Automated count 2.9 % 0.0 - 7.0 [facility] Basophils/100 leukocytes in Blood by Automated count 0.1 % 0.0 - 2.0 [facility] %IG 0.2 % 0.0 - 0.0 H [facility] %NRBC 0.0 % 0.0 - 0.0 [facility] al Neutrophils [#/volume] in Blood by Automated count 5.84 10^3/uL 2.00 - 6.90 [facility] Lymphocytes [#/volume] in Blood by Automated count 1.77 10^3/uL 0.60 - 3.40 [facility] Monocytes [#/volume] in Blood by Automated count 0.66 10^3/uL 0.00 - 0.90 [facility] Eosinophils [#/volume] in Blood by Automated count 0.25 10^3/uL 0.00 - 0.70 [facility] Basophils [#/volume] in Blood by Automated count 0.01 10^3/uL 0.00 - 0.20 [facility] #IG 0.02 10^3/uL 0.00 - 0.10 [facility] #NRBC 0.00 10^3/uL 0.00 - 0.00 [facility] MANUAL DIFF NOT INDICATED [facility] RBC MORPH NOT INDICATED [facility] ID Date Data Source [id number] 01/13/2020 01:56:00 PM EDT [facility] ([facility]) Name Value Range Interpretation Code Description Data Giovana rce(s) Supporting Document(s) Urinalysis Laboratory test result [facility] ([facility]) URINALYSIS Source Laboratory test result [facility] ([facility]) SOURCE: Clean Catch Color Laboratory test result [facility] ([facility]) SOURCE: Clean Catch Clarity Laboratory test result [facility] ([facility]) SOURCE: Clean Catch Spec [place] 1.005 1.001-1.030 [facility] ([facility]) SOURCE: Clean Catch pH 8 5-9 [facility] ([facility]) SOURCE: Clean Catch Bilirubin Laboratory test result [facility] ([facility]) SOURCE: Clean Catch Glucose Laboratory test result [facility] ([facility]) SOURCE: Clean Catch Ketone Laboratory test result [facility] ([facility]) SOURCE: Clean Catch Protein Laboratory test result [facility] ([facility]) SOURCE: Clean Catch Blood Laboratory test result [facility] ([facility]) SOURCE: Clean Catch Nitrite Laboratory test result [facility] ([facility]) SOURCE: Clean Catch Leuk Est Laboratory test result [facility] ([facility]) SOURCE: Clean Catch Urobilinogen Laboratory test result [facility] ([facility]) SOURCE: Clean Catch Microscopic Laboratory test result M [facility] ([facility]) SOURCE: Clean Catch ID Date Data Source [id number] 01/13/2020 02:06:00 PM EDT [facility] Name Value Range Interpretation Code Description Data Giovana rce(s) Supporting Document(s) URINALYSIS [facility] giovanna URINALYSIS SOURCE R [facility] COLOR yellow NORMAL: Yellow [facility] CLARITY clear NORMAL: Clear [facility] Specific gravity of Urine by Test strip 1.005 1.001 - 1.030 [facility] pH 8 5 - 9 [facility] Glucose [Mass/volume] in Urine by Test strip NORM NORMAL: Negat rebekah [facility] Bilirubin.total [Presence] in Urine by Test strip NEG NORMAL: Negative [facility] Ketones [Presence] in Urine by Test strip NEG NORMAL: Negative [facility] Protein [Mass/volume] in Urine by Test strip NEG NORMAL: Negat rebekah [facility] Nitrite [Presence] in Urine by Test strip NEG NORMAL: Negative [facility] BLOOD NEG NORMAL: Negative [facility] Leukocyte esterase [Presence] in Urine by Test strip NEG MILAGROS L: Negative [facility] Urobilinogen [Mass/volume] in Urine by Test strip NOR less vanessa n 1.0 mg/dL [facility] MICROSCOPIC Not Indicate [facility] ID Date Data Source [id number] 01/12/2020 01:25:00 PM EDT [facility] ([facility]) Name Value Range Interpretation Code Description Data Giovana rce(s) Supporting Document(s) Ribs Unilat W/PA CXR LT Laboratory test result [facility] ([facility]) ID Date Data Source [id number] 12/28/2019 09:15:00 AM EDT [facility] ([facility]) Name Value Range Interpretation Code Description Data Giovana rce(s) Supporting Document(s) Coronavirus Covid-19 Laboratory test result [facility] ([facility]) This test was developed and its performa nce characteristics determined by [facility]. This test has not been FDA cleared [...] in this assay. ID Date Data Source [id number] 12/28/2019 09:15:00 AM EDT [facility] Name Value Range Interpretation Code Description Data Giovana rce(s) Supporting Document(s) SARS CORONAVIRUS 2 RNA [facility] This lab was ordered by [facility] Haider huerta and reported by [facility]. ID Date Data Source [id number] 12/30/2019 06:32:00 AM EDT [facility] Name Value Range Interpretation Code Description Data Giovana rce(s) Supporting Document(s) SARS-CoV-2, TYRON Not Detected Not Detected [facility] This test was developed and its performa nce characteristics determinedby [facility]. This test has not been FDA [...] in this assay. ID Date Data Source [id number] 11/22/2019 09:49:00 AM EDT [facility] [address] [place] [address] PHONE: [phone] FAX: [phone] Name .................. : GAVIOTA ROMERO [place] Acct Number.................. : [id number] ROOM. ................. : MR Number ................... : [id number] Stay type ............. : O/P Discharge Date......... ... : 11/19/19 Admit Date ......... : 11/19/19 Admit Phys .................... : HESTER HARD Date of ....... : 1990 Family Phys ................... : HESTER HARD Phone .................. : [phone] Age ................................ : 29 Film# .................. .:[id number] Sex ................................. : M Unsigned transcriptions are preliminary reports and do not represent a medical or legal document SPINE LS COMPLETE [id number] COMPLETE:11/19/19 10:39 55052 (SPINE PROC REASON: PAIN LUMBAR SPINE X-RAY: [...] Date: 11/19/19 15:31, Dictation Date: Copy for: [address] [place] [address] REC Page 1 of 1 Name Value Range Interpretation Code Description Data Giovana rce(s) Supporting Document(s) ID Date Data Source [id number] 11/22/2019 09:49:00 AM EDT [facility] [address] [place] [address] PHONE: [phone] FAX: [phone] Name .................. : GAVIOTA [place] Acct Number.................. : [id number] ROOM. ................. : MR Number ................... : [id number] Stay type ............. : O/P Discharge Date......... ... : 11/19/19 Admit Date ......... : 11/19/19 Admit Phys .................... : [email or web address] Date of ....... : 1990 Family Phys ................... : [email or web address] Phone .................. : [phone] Age ................................ : 29 Film# .................. .:[id number] Sex ................................. : M Unsigned transcriptions are preliminary reports and do not represent a medical or legal document SPINE THORACIC [id number] COMPLETE:11/19/19 10:39 [id number] (SPINE PROC REASON: PAIN THORACIC SPINE SERIES: [...] rce(s) Supporting Document(s) ID Date Data Source [id number] 11/18/2019 03:15:00 PM EDT [facility] ([facility]) Name Value Range Interpretation Code Description Data Giovana rce(s) Supporting Document(s) Source Laboratory test result [facility] ([facility]) Is patient fasting? N {SOURCE: Random Void~NURSE COLLECTED? N Is patient fasting? N Urinalysis Laboratory test result [facility] ([facility]) Is patient fasting? N {SOURCE: Random Void~NURSE COLLECTED? N Is patient fasting? N Color Laboratory test result [facility] ([facility]) Is patient fasting? N {SOURCE: Random Void~NURSE COLLECTED? N Is patient fasting? N Clarity Laboratory test result [facility] ([facility]) Is patient fasting? N {SOURCE: Random Void~NURSE COLLECTED? N Is patient fasting? N Glucose Laboratory test result [facility] ([facility]) Is patient fasting? N {SOURCE: Random Void~NURSE COLLECTED? N Is patient fasting? N pH 5 5-9 [facility] ([facility]) Is patient fasting? N {SOURCE: Random Void~NURSE COLLECTED? N Is patient fasting? N Spec [place] 1.015 1.001-1.030 [facility] ([facility]) Is patient fasting? N {SOURCE: Random Void~NURSE COLLECTED? N Is patient fasting? N Bilirubin Laboratory test result [facility] ([facility]) Is patient fasting? N {SOURCE: Random Void~NURSE COLLECTED? N Is patient fasting? N Protein Laboratory test result [facility] ([facility]) Is patient fasting? N {SOURCE: Random Void~NURSE COLLECTED? N Is patient fasting? N Ketone Laboratory test result [facility] ([facility]) Is patient fasting? N {SOURCE: Random Void~NURSE COLLECTED? N Is patient fasting? N Blood Laboratory test result [facility] ([facility]) Is patient fasting? N {SOURCE: Random Void~NURSE COLLECTED? N Is patient fasting? N Nitrite Laboratory test result [facility] ([facility]) Is patient fasting? N {SOURCE: Random Void~NURSE COLLECTED? N Is patient fasting? N Microscopic Laboratory test result M [facility] ([facility]) Is patient fasting? N {SOURCE: Random Void~NURSE COLLECTED? N Is patient fasting? N Leuk Est Laboratory test result [facility] ([facility]) Is patient fasting? N {SOURCE: Random Void~NURSE COLLECTED? N Is patient fasting? N Urobilinogen Laboratory test result [facility] ([facility]) Is patient fasting? N {SOURCE: Random Void~NURSE COLLECTED? N Is patient fasting? N ID Date Data Source [id number] 11/18/2019 03:15:00 PM EDT [facility] ([facility]) Name Value Range Interpretation Code Description Data Giovana rce(s) Supporting Document(s) Thyrotropin [Units/volume] in Serum or Plasma 1.85 uIU/mL 0.47-5.01 [facility] ([facility]) Is patient fasting? N {SOURCE: Random Void~NURSE COLLECTED? N Is patient fasting? N Thyroxine (T4) free [Mass/volume] in Serum or Plasma 0.72 ng/dL 0.93-1.70 Below low normal [facility] ([facility]) Is patient fasting? N {SOURCE: Random Void~NURSE COLLECTED? N Is patient fasting? N Hemoglobin A1c/Hemoglobin.total in Blood 4.3 % 4.4-6.1 Below low normal [facility] ([facility]) Is patient fasting? N {SOURCE: Random Void~NURSE COLLECTED? N Is patient fasting? N ID Date Data Source [id number] 11/18/2019 03:15:00 PM EDT [facility] ([facility]) Name Value Range Interpretation Code Description Data Giovana rce(s) Supporting Document(s) Cve Panel Laboratory test result [facility] ([facility]) Is patient fasting? N {SOURCE: Random Void~NURSE COLLECTED? N Is patient fasting? N Cholesterol 220 mg/dL 131-200 Above high normal [facility] ([facility]) Is patient fasting? N {SOURCE: Random Void~NURSE COLLECTED? N Is patient fasting? N HDL 46 mg/dL 29-86 [facility] ([facility]) Is patient fasting? N {SOURCE: Random Void~NURSE COLLECTED? N Is patient fasting? N Triglycerides 250 mg/dL 35-160 Above high normal [facility] NT ([facility]) Is patient fasting? N {SOURCE: Random Void~NURSE COLLECTED? N Is patient fasting? N LDL/HDL 3.46 1.00-3.55 [facility] ([facility]) Is patient fasting? N {SOURCE: Random Void~NURSE COLLECTED? N Is patient fasting? N LDL 159 mg/dL 65-175 [facility] ([facility]) Is patient fasting? N {SOURCE: Random Void~NURSE COLLECTED? N Is patient fasting? N Risk Factor 4.8 3.4-4.9 [facility] ([facility]) Is patient fasting? N {SOURCE: Random Void~NURSE COLLECTED? N Is patient fasting? N ID Date Data Source [id number] 11/18/2019 03:15:00 PM EDT [facility] ([facility]) Name Value Range Interpretation Code Description Data Giovana rce(s) Supporting Document(s) Comprehensive Metabo Laboratory test result [facility] ([facility]) Is patient fasting? N {SOURCE: Random Void~NURSE COLLECTED? N Is patient fasting? N Chloride 104 meq/L 98-107 [facility] ([facility]) Is patient fasting? N {SOURCE: Random Void~NURSE COLLECTED? N Is patient fasting? N Potassium 4.0 meq/L 3.6-5.0 [facility] ([facility]) Is patient fasting? N {SOURCE: Random Void~NURSE COLLECTED? N Is patient fasting? N Sodium 142 meq/L 134-153 [facility] ([facility]) Is patient fasting? N {SOURCE: Random Void~NURSE COLLECTED? N Is patient fasting? N Co2 27 meq/L 22-30 [facility] ([facility]) Is patient fasting? N {SOURCE: Random Void~NURSE COLLECTED? N Is patient fasting? N Glucose 91 mg/dL 65-110 [facility] ([facility]) Is patient fasting? N {SOURCE: Random Void~NURSE COLLECTED? N Is patient fasting? N BUN/Creat 17 8-27 [facility] ([facility]) Is patient fasting? N {SOURCE: Random Void~NURSE COLLECTED? N Is patient fasting? N BUN 15 mg/dL 7-21 [facility] ([facility]) Is patient fasting? N {SOURCE: Random Void~NURSE COLLECTED? N Is patient fasting? N Creatinine 0.9 mg/dL 0.7-1.5 [facility] ([facility]) Is patient fasting? N {SOURCE: Random Void~NURSE COLLECTED? N Is patient fasting? N Albumin 4.4 g/dL 3.9-5.0 [facility] ([facility]) Is patient fasting? N {SOURCE: Random Void~NURSE COLLECTED? N Is patient fasting? N Globulin 3.2 GM/DL 2.4-3.2 [facility] ([facility]) Is patient fasting? N {SOURCE: Random Void~NURSE COLLECTED? N Is patient fasting? N Total Protein 7.6 g/dL 6.3-8.2 [facility] ([facility]) Is patient fasting? N {SOURCE: Random Void~NURSE COLLECTED? N Is patient fasting? N Calcium 9.3 mg/dL 8.4-10.2 [facility] ([facility]) Is patient fasting? N {SOURCE: Random Void~NURSE COLLECTED? N Is patient fasting? N A/G Ratio 1.4 0.8-2.0 [facility] ([facility]) Is patient fasting? N {SOURCE: Random Void~NURSE COLLECTED? N Is patient fasting? N Total Bili Laboratory test result 0.2-1.3 [facility] ([facility]) Is patient fasting? N {SOURCE: Random Void~NURSE COLLECTED? N Is patient fasting? N Alkaline Phos 114 U/L 38-126 [facility]) Is patient fasting? N {SOURCE: Random Void~NURSE COLLECTED? N Is patient fasting? N Sgot/Ast 22 U/L 5-40 [facility] ([facility]) Is patient fasting? N {SOURCE: Random Void~NURSE COLLECTED? N Is patient fasting? N Age 29 yrs [facility] ([facility]) Is patient fasting? N {SOURCE: Random Void~NURSE COLLECTED? N Is patient fasting? N SGPT/Alt 34 U/L 7-56 [facility] ([facility]) Is patient fasting? N {SOURCE: Random Void~NURSE COLLECTED? N Is patient fasting? N Anion Gap 11.0 mmol/L 8.0-16.0 [facility] ([facility]) Is patient fasting? N {SOURCE: Random Void~NURSE COLLECTED? N Is patient fasting? N Afr Amer GFR Laboratory test result [facility] ([facility]) Is patient fasting? N {SOURCE: Random Void~NURSE COLLECTED? N Is patient fasting? N Non-Aa GFR Laboratory test result [facility] ([facility]) Is patient fasting? N {SOURCE: Random Void~NURSE COLLECTED? N Is patient fasting? N ID Date Data Source [id number] 11/18/2019 03:15:00 PM EDT [facility] ([facility]) Name Value Range Interpretation Code Description Data Giovana rce(s) Supporting Document(s) RBC 5.74 10^6/uL 4.50-6.30 [facility] ([facility]) Is patient fasting? N {SOURCE: Random Void~NURSE COLLECTED? N Is patient fasting? N CBC W/Automated Diff Laboratory test result [facility] ([facility]) Is patient fasting? N {SOURCE: Random Void~NURSE COLLECTED? N Is patient fasting? N WBC 9.5 10^3/uL 4.2-11.0 [facility] ([facility]) Is patient fasting? N {SOURCE: Random Void~NURSE COLLECTED? N Is patient fasting? N Hemoglobin 16.5 g/dL 14.0-16.0 Above high normal [facility] ([facility]) Is patient fasting? N {SOURCE: Random Void~NURSE COLLECTED? N Is patient fasting? N MCV 87.5 fL 80.0-94.0 [facility] ([facility]) Is patient fasting? N {SOURCE: Random Void~NURSE COLLECTED? N Is patient fasting? N Hematocrit 50.2 % 41.0-51.0 [facility] ([facility]) Is patient fasting? N {SOURCE: Random Void~NURSE COLLECTED? N Is patient fasting? N RDW 13.7 % 11.5-14.8 [facility] ([facility]) Is patient fasting? N {SOURCE: Random Void~NURSE COLLECTED? N Is patient fasting? N MCHC 32.9 g/dL 31.0-36.0 [facility] ([facility]) Is patient fasting? N {SOURCE: Random Void~NURSE COLLECTED? N Is patient fasting? N MCH 28.7 pg 27.0-34.0 [facility] ([facility]) Is patient fasting? N {SOURCE: Random Void~NURSE COLLECTED? N Is patient fasting? N MPV 9.2 fL 7.4-10.4 [facility] ([facility]) Is patient fasting? N {SOURCE: Random Void~NURSE COLLECTED? N Is patient fasting? N Platelets 202 10^3/uL 150-450 [facility] ([facility]) Is patient fasting? N {SOURCE: Random Void~NURSE COLLECTED? N Is patient fasting? N Neut 67.2 % 37.0-80.0 [facility] ([facility]) Is patient fasting? N {SOURCE: Random Void~NURSE COLLECTED? N Is patient fasting? N Navarro 7.2 % 3.0-8.0 [facility] ([facility]) Is patient fasting? N {SOURCE: Random Void~NURSE COLLECTED? N Is patient fasting? N Eos 3.6 % 0.0-7.0 [facility] ([facility]) Is patient fasting? N {SOURCE: Random Void~NURSE COLLECTED? N Is patient fasting? N Lymph 21.5 % 25.0-40.0 Below low normal [facility] ( [facility]) Is patient fasting? N {SOURCE: Random Void~NURSE COLLECTED? N Is patient fasting? N Baso 0.2 % 0.0-2.0 [facility] ([facility]) Is patient fasting? N {SOURCE: Random Void~NURSE COLLECTED? N Is patient fasting? N %NRBC 0.0 % 0.0-0.0 [facility] ([facility]) Is patient fasting? N {SOURCE: Random Void~NURSE COLLECTED? N Is patient fasting? N %Ig 0.3 % 0.0-0.0 Above high normal [facility] ([facility]) Is patient fasting? N {SOURCE: Random Void~NURSE COLLECTED? N Is patient fasting? N #Neut 6.39 10^3/uL 2.00-6.90 [facility] ([facility]) Is patient fasting? N {SOURCE: Random Void~NURSE COLLECTED? N Is patient fasting? N #Lymph 2.04 10^3/uL 0.60-3.40 [facility] ([facility]) Is patient fasting? N {SOURCE: Random Void~NURSE COLLECTED? N Is patient fasting? N #Navarro 0.68 10^3/uL 0.00-0.90 [facility] ([facility]) Is patient fasting? N {SOURCE: Random Void~NURSE COLLECTED? N Is patient fasting? N #Baso 0.02 10^3/uL 0.00-0.20 [facility] ([facility]) Is patient fasting? N {SOURCE: Random Void~NURSE COLLECTED? N Is patient fasting? N #Ig 0.03 10^3/uL 0.00-0.10 [facility] ([facility]) Is patient fasting? N {SOURCE: Random Void~NURSE COLLECTED? N Is patient fasting? N #Eos 0.34 10^3/uL 0.00-0.70 [facility] ([facility]) Is patient fasting? N {SOURCE: Random Void~NURSE COLLECTED? N Is patient fasting? N #NRBC 0.00 10^3/uL 0.00-0.00 [facility] ([facility]) Is patient fasting? N {SOURCE: Random Void~NURSE COLLECTED? N Is patient fasting? N Manual Diff Laboratory test result M [facility]ENT ([facility]) Is patient fasting? N {SOURCE: Random Void~NURSE COLLECTED? N Is patient fasting? N RBC Morph Laboratory test result [facility] ([facility]) Is patient fasting? N {SOURCE: Random Void~NURSE COLLECTED? N Is patient fasting? N ID Date Data Source [id number] 11/18/2019 07:45:00 PM EDT [facility] Name Value Range Interpretation Code Description Data Giovana rce(s) Supporting Document(s) CVE PANEL [facility] LIPID PANEL Cholesterol [Mass/volume] in Serum or Plasma 220 MG/DL 131 - 200 H [facility] Deprecated Triglyceride [Mass/volume] in Serum or Plasma 250 MG/DL 3 5 - 160 H [facility] HDL 46 MG/DL 29 - 86 [facility] Ch[facility] in LDL/Cholesterol in HDL [Mass Ratio] in Serum or Plasma 159 mg/dL 65 - 175 [facility] Cholesterol.total/Cholesterol in HDL [Mass Ratio] in Serum o r Plasma 4.8 3.4 - 4.9 [facility] LDL/HDL 3.46 1.00 - 3.55 [facility] CVE RISK CHOL/HDL LDL/HDLMEN: 1/2 AVERAGE 3.43 1.00 AVERAGE 4.97 3.55 2X AVERAGE 9.55 6.25 3X AVERAGE 23.99 7.99WOMEN: 1/2 AVERAGE 3.27 1.47 AVERAGE 4.44 3.22 2X AVERAGE 7.05 5.03 3X AVERAGE 11.04 6.14 ID Date Data Source [id number] 11/18/2019 07:27:00 PM EDT [facility] Name Value Range Interpretation Code Description Data Giovana rce(s) Supporting Document(s) [facility]IS [facility] URINALYSIS SOURCE R [facility] al COLOR yellow NORMAL: Yellow [facility] CLARITY clear NORMAL: Clear [facility] Specific gravity of Urine by Test strip 1.015 1.001 - 1.030 [facility] pH 5 5 - 9 [facility] Glucose [Mass/volume] in Urine by Test strip NORM NORMAL: Negat [facility] Bilirubin.total [Presence] in Urine by Test strip NEG NORMAL: Negative [facility] Ketones [Presence] in Urine by Test strip NEG NORMAL: Negative [facility] Protein [Mass/volume] in Urine by Test strip NEG NORMAL: Negat [facility] Nitrite [Presence] in Urine by Test strip NEG NORMAL: Negative [facility] BLOOD NEG NORMAL: Negative [facility] Leukocyte esterase [Presence] in Urine by Test strip NEG MILAGROS L: Negative [facility] Urobilinogen [Mass/volume] in Urine by Test strip NOR less vanessa n 1.0 mg/dL [facility] MICROSCOPIC Not Indicate [facility] ID Date Data Source [id number] 11/18/2019 07:44:00 PM EDT [facility] Name Value Range Interpretation Code Description Data Giovana rce(s) Supporting Document(s) Hemoglobin A1c/Hemoglobin.total in Blood 4.3 % 4.4 - 6.1 L [facility] {A1]{HB] ID Date Data Source [id number] 11/18/2019 07:54:00 PM EDT [facility] Name Value Range Interpretation Code Description Data Giovana rce(s) Supporting Document(s) Thyroxine (T4) free index in Serum or Plasma by calculation 0.72 NG/DL 0.93 - 1.70 L [facility] ID Date Data Source [id number] 11/18/2019 07:54:00 PM EDT [facility] Name Value Range Interpretation Code Description Data Giovana rce(s) Supporting Document(s) Thyrotropin [Units/volume] in Serum or Plasma by Detec tion limit <= 0.05 mIU/L 1.85 uIU/mL 0.47 - 5.01 [facility] ID Date Data Source [id number] 11/18/2019 07:45:00 PM EDT [facility] Name Value Range Interpretation Code Description Data Giovana rce(s) Supporting Document(s) COMPREHENSIVE METABOLIC PANEL [facility] COMPREHENSIVE METABOLIC PANEL Sodium [Moles/volume] in Serum or Plasma 142 mEq/L 134 - 153 [facility] Potassium [Moles/volume] in Serum or Plasma 4.0 mEq/L 3.6 - 5.0 [facility] Chloride [Moles/volume] in Serum or Plasma 104 mEq/L 98 - 107 [facility] Carbon dioxide, total [Moles/volume] in Serum or Plasma 27 MEQ/L 22 - 30 [facility] Glucose [Mass/volume] in Serum or Plasma 91 MG/DL 65 - 110 [facility] BUN 15 MG/DL 7 - 21 [facility] Creatinine [Mass/volume] in Serum or Plasma 0.9 MG/DL 0.7 - 1.5 [facility] BUN/CREAT 17 8 - 27 [facility] Protein [Mass/volume] in Serum or Plasma 7.6 G/DL 6.3 - 8.2 [facility] Albumin [Mass/volume] in Serum or Plasma 4.4 G/DL 3.9 - 5.0 [facility] Globulin [Mass/volume] in Serum by calculation 3.2 GM/DL 2.4 - 3.2 [facility] A/G RATIO 1.4 0.8 - 2.0 [facility] Calcium [Mass/volume] in Serum or Plasma 9.3 MG/DL 8.4 - 10.2 [facility] Bilirubin.total [Mass/volume] in Serum or Plasma <0.7 MG/DL 0.2 - 1.3 [facility] Alkaline phosphatase [Enzymatic activity/volume] in Serum or Plasma 114 U/L 38 - 126 [facility] Aspartate aminotransferase [Enzymatic activity/volume] in Serum or Plasma 22 U/L 5 - 40 [facility] Alanine aminotransferase [Enzymatic activity/volume] in Seru m or Plasma 34 U/L 7 - 56 [facility] Anion gap 3 in Serum or Plasma 11.0 mmol/L 8.0 - 16.0 [facility] AGE 29 y[facility] GFR >60 mL/min [facility] AFR AMER GFR >60 mL/min [facility] Male GFR In [...] >32 mL/min Normal ID Date Data Source [id number] 11/18/2019 07:34:00 PM EDT [facility] Name Value Range Interpretation Code Description Data Giovana rce(s) Supporting Document(s) CBC W/AUTOMATED DIFF [facility] COMPLETE BLOOD COUNT Leukocytes [#/volume] in Blood by Automated count 9.5 10^3/uL 4.2 - 1 1.0 [facility] Erythrocytes [#/volume] in Blood by Automated count 5.74 10^6/uL 4. 50 - 6.30 [facility] Hemoglobin [Mass/volume] in Blood 16.5 g/dL 14.0 - 16.0 H [facility] Hematocrit [Volume Fraction] of Blood by Automated count 50.2 % 4 1.0 - 51.0 [facility] Erythrocyte mean corpuscular volume [Entitic volume] by Auto mated count 87.5 fL 80.0 - 94.0 [facility] Erythrocyte mean corpuscular hemoglobin [Entitic mass] by Automated count 28.7 pg 27.0 - 34.0 [facility] Erythrocyte mean corpuscular hemoglobin concentration [Mass/volume] by Automated count 32.9 g/dL 31.0 - 36.0 [facility] Erythrocyte distribution width [Ratio] by Automated count 13.7 % 11.5 - 14.8 [facility] Platelets [#/volume] in Blood by Automated count 202 10^3/uL 150 - 45 0 [facility] Platelet mean volume [Entitic volume] in Blood by Automated count 9.2 fL 7.4 - 10.4 [facility] Neutrophils/100 leukocytes in Blood by Automated count 67.2 % 37. 0 - 80.0 [facility] Lymphocytes/100 leukocytes in Blood by Manual count 21.5 % 25.0 - 40.0 L [facility] Monocytes/100 leukocytes in Blood by Automated count 7.2 % 3.0 - 8.0 [facility] Eosinophils/100 leukocytes in Blood by Automated count 3.6 % 0.0 - 7.0 [facility] Basophils/100 leukocytes in Blood by Automated count 0.2 % 0.0 - 2.0 [facility] %IG 0.3 % 0.0 - 0.0 H [facility] %NRBC 0.0 % 0.0 - 0.0 [facility] al Neutrophils [#/volume] in Blood by Automated count 6.39 10^3/uL 2.00 - 6.90 [facility] Lymphocytes [#/volume] in Blood by Automated count 2.04 10^3/uL 0.60 - 3.40 [facility] Monocytes [#/volume] in Blood by Automated count 0.68 10^3/uL 0.00 - 0.90 [facility] Eosinophils [#/volume] in Blood by Automated count 0.34 10^3/uL 0.00 - 0.70 [facility] Basophils [#/volume] in Blood by Automated count 0.02 10^3/uL 0.00 - 0.20 [facility] #IG 0.03 10^3/uL 0.00 - 0.10 [facility] #NRBC 0.00 10^3/uL 0.00 - 0.00 [facility] MANUAL DIFF NOT INDICATED [facility] RBC MORPH NOT INDICATED [facility] spital ID Date Data Source [id number] 11/18/2019 03:08:00 PM EDT [facility] ([facility]) Name Value Range Interpretation Code Description Data Giovana rce(s) Supporting Document(s) Spine LS Complete <pending> [facility] ([facility]) Spine Thoracic <pending> [facility] ([facility]) ID Date Data Source [id number] 10/25/2019 08:46:00 AM EDT [facility] [address] [place] [address] PHONE: [phone] FAX: [phone] Name .................. : GAVIOTA Madison Acct Number.................. : [id number] ROOM. ................. : TR-02 MR Number ................... : [id number] Stay type ............. : E/R Discharge Date......... ... : 10/21/19 Admit Date ......... : 10/21/19 Admit Phys .................... : KHANH LANTIGUA Date of ....... : 1990 Family Phys ................... : NO PCP Phone .................. : [phone] Age ................................ : 29 Film# .................. .:[id number] Sex ................................. : M Unsigned transcriptions are preliminary reports and do not represent a medical or legal document CT ABD & PELV W/O ORAL W/O IV [id number] COMPLETE:10/21/19 19:36 [facility] [id number] Reason(s): gross hematuria x [address] [...] inguinal hernias. Page 1 of 2 [place] [address] PHONE: [phone] FAX: [phone] Name .................. : GAVIOTA Madison Acct Number.................. : [id number] ROOM. ................. : TR-02 MR Number ................... : [id number] Stay type ............. : E/R Discharge Date......... ... : 10/21/19 Admit Date ......... : 10/21/19 Admit Phys .................... : KHANH LANTIGUA Date of ....... : 1990 Family Phys ................... : NO PCP Phone .................. : [phone] Age ................................ : 29 Film# .................. .:[id number] Sex ................................. : M Unsigned transcriptions are preliminary reports and do not represent a medical or legal document CT ABD & PELV W/O ORAL W/O IV [id number] COMPLETE:10/21/19 19:36 [facility] [id number] Reason(s): gross hematuria x 3 weeks Evaluation [...] rce(s) Supporting Document(s) ID Date Data Source [id number] 10/21/2019 03:31:00 PM EDT [facility] 1 OrderSheet [facility] Emergency Department [address] [place] [address] Phone #: ext- [phone] 10/21/2019 15:22 Patient: [...] W/O IV Morgan TANG; Kota Crane R.N.Contrast R.NShay(Oxygen?(No))(IV?(No)) Reason for Study: gross hematuria x 3 weeksMEDICATION/IV/DRIP/FLUID ORDERSOrder Description Priority Entered Acknowledged InitialedGENERAL ORDERSOrder Description Priority Entered Acknowledged Initialed[Electronically signed by Kota Crane R.N. (17:42 10/21/2019)][Electronically signed by Morgan Pedraza (18:16 10/21/2019)][Electronically locked by Kota Crane R.N. (17:42 10/21/2019)] Name Value Range Interpretation Code Description Data Giovana rce(s) Supporting Document(s) ID Date Data Source [id number] 10/21/2019 03:31:00 PM EDT [facility] 1 Medication Reconciliation Report [facility] Emergency Department [address] [place] [address] Phone #: ext- [phone] 10/21/2019 15:22 Patient: [...] Dispense 28capsule. Refills: 0. Substitution permitted.Pharmacy - [id number] - [address] [place], [place] [id number]. . -- CLYDE Milton Name Value Range Interpretation Code Description Data Giovana rce(s) Supporting Document(s) ID Date Data Source [id number] 10/21/2019 03:31:00 PM EDT [facility] 1 Medication Administration Record [facility] Emergency Department [address] [place] [address] Phone #: ext [phone] 10/21/2019 15:22 Patient: NICK TRUJILLO Sex: M : 1990 Age: 29yWeight: 176.4 kgHeight/Length: 71 inBMI: 54.3ALLERGIES: Naproxsyn, Tylenol with codein, DilantinDate/Time Medication Administered Medication Ordered Name Value Range Interpretation Code Description Data Giovana rce(s) Supporting Document(s) ID Date Data Source [id number] 10/21/2019 03:31:00 PM EDT [facility] 1 General Instructions [facility] Emergency Department [address] [place] [address] Phone #: ext [phone] 10/21/2019 15:22 Patient: NICK TRUJILLO Sex: M [...] Dispense 28capsule. Refills: 0. Substitution permitted.Pharmacy - [id number] - [address] [place], [place] [id number]. .Follow-up:Follow up with your healthcare provider in [...] INFORMATIONBlood in the Urine 2 General Instructions [facility] Emergency Department [address] [place] [address] Phone #: ext- [phone] 10/21/2019 15:22 Patient: NICK TRUJILLO Sex: M [...] had blood in your 3 General Instructions [facility] Emergency Department [address] [place] [address] Phone #: ext- [phone] 10/21/2019 15:22 Patient: [...] the nose or gums or easy bruising [id number] [employer]. [address] [place] [address], [place] [address]. All rights reserved. This information is not [...] rce(s) Supporting Document(s) ID Date Data Source [id number] 10/21/2019 03:31:00 PM EDT [facility] 1 Clinical Report - Nurses [facility] Emergency Department [address] [place] [address] Phone #: ext- [phone] 10/21/2019 15:22 Patient: [...] Crane R.N.Naproxsyn. --15:25 10/21/19 Kota Crane R.N.PROBLEMS:Asthma.Seziures. --15:10/21/19 Kota Crane R.N.ADDITIONAL SURGERIES:Hernia Repair. --1510/21/19 Kota Crane R.N.HistorySOCIAL HX: Never smoker. No [...] before today?". 2 Clinical Report - Nurses [facility] Emergency Department [address] [place] [address] Phone #: ext- [phone] 10/21/2019 15:22 Patient: [...] Kota Crane R.N.NURSING PROGRESS NOTESPatient transported to [place] by wheelchair with solar fabrication technician. --16:41 10/21/19 Kota Crane R.N. 17:01 10/21/19. BP: 127/71. MAP: 89. HR: 104. RR: 18. O2 saturation: 99%. --17:02 10/21/19 [facility] Tech, [place], ER Tech1.DISPOSITION / DISCHARGE 17:38 10/21/19. BP: 125/78. MAP: 93. HR: 98. RR: 18. O2 saturation: 99%. Temp: 98.6 F. --17:38 10/21/19 [facility] Tech, [place], ER Tech1 Condition at departure: unchanged. Discharge instructions provided and reviewed with the patient. Reviewed medication(s). Prescription(s) sent electronically to pharmacy. Patient verbalized understanding. Written instructions provided in Slovenian. The patient was discharged by the physician. He was discharged home. He left ambulatory. Patient driving. --17:41 10/21/19 Kota Crane R.N. 17:41 10/21/19. Pain level now 0/10. --17:41 10/21/19 Kota Crane R.N. 3 Clinical Report - Nurses [facility] Emergency Department [address] [place] [address] Phone #: ext- [phone] 10/21/2019 15:22 Patient: NICK TRUJILLO Sex: M : 1990 Age: 29yLocked/Released at 10/21/2019 17:42 by Kota Crane R.N. Name Value Range Interpretation Code Description Data Giovana rce(s) Supporting Document(s) ID Date Data Source [id number] 10/21/2019 03:31:00 PM EDT [facility] 1 Clinical Report - Physicians/Mid Levels [facility] Emergency Department [address] [place] [address] Phone #: ext- [phone] 10/21/2019 15:22 Patient: [...] allergies. 2 Clinical Report - Physicians/Mid Levels [facility] Emergency Department [address] [place] [address] Phone #: ext- [phone] 10/21/2019 15:22 Patient: NICK TRUJILLO Sex: M [...] results 3 Clinical Report - Physicians/Mid Levels [facility] Emergency Department [address] [place] [address] Phone #: ext- [phone] 10/21/2019 15:22 [id number] Sex: M : 1990 Age: 29y Test [...] treatment. 4 Clinical Report - Physicians/Mid Levels [facility] Emergency Department [address] [place] [address] Phone #: axx- [phone] 10/21/2019 15:22 Patient: NICK TRUJILLO Sex: M [...] capsule. Refills: 0. Substitution permitted. Pharmacy - [facility] - [address] [facility] ; [place], [place] [id number]. . Follow- up: Follow up with your [...] rce(s) Supporting Document(s) ID Date Data Source [id number] 10/21/2019 04:27:00 PM EDT [facility] ([facility]) Name Value Range Interpretation Code Description Data Giovana rce(s) Supporting Document(s) Comprehensive [facility]abo Laboratory test result [facility] ([facility]) COMPREHENSIVE METABOLIC PANEL Chloride 106 meq/L 98-107 [facility] ([facility]) Potassium 4.0 meq/L 3.6-5.0 [facility] ([facility]) Sodium 144 meq/L 134-153 [facility] ([facility]) Co2 25 meq/L 22-30 [facility] ([facility]) BUN 10 mg/dL 7-21 [facility] ([facility]) Glucose 102 mg/dL 65-110 [facility] ([facility]) Creatinine 0.8 mg/dL 0.7-1.5 [facility] ([facility]) BUN/Creat 13 8-27 [facility] ([facility]) Total Protein 7.7 g/dL 6.3-8.2 [facility] ([facility]) Albumin 4.4 g/dL 3.9-5.0 [facility] ([facility]) Globulin 3.3 GM/DL 2.4-3.2 Above high normal [facility] ([facility]) Calcium 9.1 mg/dL 8.4-10.2 [facility] ([facility]) A/G Ratio 1.3 0.8-2.0 [facility] ([facility]) Total Bili Laboratory test result 0.2-1.3 ME DENT ([facility]) Alkaline Phos 104 U/L 38-126 [facility] ([facility]) Sgot/Ast 27 U/L 5-40 [facility] ([facility]) Anion Gap 13.0 mmol/L 8.0-16.0 [facility] ([facility]) SGPT/Alt 43 U/L 7-56 [facility] ([facility]) Age 29 yrs [facility] ([facility]) Afr Amer GFR Laboratory test result [facility] ([facility]) Male GFR Interprentation 20-49 yrs [...] mL/min Normal Non-Aa GFR Laboratory test result [facility] ([facility]) ID Date Data Source [id number] 10/21/2019 04:27:00 PM EDT [facility] ([facility]) Name Value Range Interpretation Code Description Data Giovana rce(s) Supporting Document(s) CBC W/Automated Diff Laboratory test result [facility] ([facility]) COMPLETE BLOOD COUNT WBC 9.1 10^3/uL 4.2-11.0 [facility] ([facility]) RBC 5.69 10^6/uL 4.50-6.30 [facility] ([facility]) Hemoglobin 16.3 g/dL 14.0-16.0 Above high normal [facility] ([facility]) Hematocrit 50.9 % 41.0-51.0 [facility] ([facility]) MCV 89.5 fL 80.0-94.0 [facility] ([facility]) MCH 28.6 pg 27.0-34.0 [facility] ([facility]) RDW 13.9 % 11.5-14.8 [facility] ([facility]) MCHC 32.0 g/dL 31.0-36.0 [facility] ([facility]) MPV 8.9 fL 7.4-10.4 [facility] ([facility]) Platelets 224 10^3/uL 150-450 [facility] ([facility]) Neut 72.7 % 37.0-80.0 [facility] ([facility]) Lymph 15.4 % 25.0-40.0 Below low normal [facility] ( [facility]) Navarro 9.1 % 3.0-8.0 Above high normal [facility] ([facility]) Baso 0.2 % 0.0-2.0 [facility] ([facility]) Eos 2.4 % 0.0-7.0 [facility] ([facility]) %Ig 0.2 % 0.0-0.0 Above high normal [facility] ([facility]) %NRBC 0.0 % 0.0-0.0 [facility] ([facility]) #Neut 6.61 10^3/uL 2.00-6.90 [facility] ([facility]) #Navarro 0.83 10^3/uL 0.00-0.90 [facility] ([facility]) #Lymph 1.40 10^3/uL 0.60-3.40 [facility] ([facility]) #Eos 0.22 10^3/uL 0.00-0.70 [facility] ([facility]) #Baso 0.02 10^3/uL 0.00-0.20 [facility] ([facility]) #Ig 0.02 10^3/uL 0.00-0.10 [facility]) #NRBC 0.00 10^3/uL 0.00-0.00 [facility] ([facility]) Manual Diff Laboratory test result M [facility] ([facility]) RBC Morph Laboratory test result [facility] ([facility]) ID Date Data Source [id number] 10/21/2019 05:29:00 PM EDT [facility] Name Value Range Interpretation Code Description Data Giovana rce(s) Supporting Document(s) COMPREHENSIVE METABOLIC PANEL [facility] COMPREHENSIVE METABOLIC PANEL Sodium [Moles/volume] in Serum or Plasma 144 mEq/L 134 - 153 [facility] Potassium [Moles/volume] in Serum or Plasma 4.0 mEq/L 3.6 - 5.0 [facility] Chloride [Moles/volume] in Serum or Plasma 106 mEq/L 98 - 107 [facility] Carbon dioxide, total [Moles/volume] in Serum or Plasma 25 MEQ/L 22 - 30 [facility] Glucose [Mass/volume] in Serum or Plasma 102 MG/DL 65 - 110 [facility] BUN 10 MG/DL 7 - 21 [facility] al Creatinine [Mass/volume] in Serum or Plasma 0.8 MG/DL 0.7 - 1.5 [facility] BUN/CREAT 13 8 - 27 [facility] al Protein [Mass/volume] in Serum or Plasma 7.7 G/DL 6.3 - 8.2 [facility] Albumin [Mass/volume] in Serum or Plasma 4.4 G/DL 3.9 - 5.0 [facility] Globulin [Mass/volume] in Serum by calculation 3.3 GM/DL 2.4 - 3.2 H [facility] A/G RATIO 1.3 0.8 - 2.0 [facility] Calcium [Mass/volume] in Serum or Plasma 9.1 MG/DL 8.4 - 10.2 [facility] Bilirubin.total [Mass/volume] in Serum or Plasma <0.7 MG/DL 0.2 - 1.3 [facility] Alkaline phosphatase [Enzymatic activity/volume] in Serum or Plasma 104 U/L 38 - 126 [facility] Aspartate aminotransferase [Enzymatic activity/volume] in Serum or Plasma 27 U/L 5 - 40 [facility] Alanine aminotransferase [Enzymatic activity/volume] in Seru m or Plasma 43 U/L 7 - 56 [facility] Anion gap 3 in Serum or Plasma 13.0 mmol/L 8.0 - 16.0 [facility] AGE 29 yrs [facility] al NON-AA GFR >60 mL/min [facility] Hosp ital AFR AMER GFR >60 mL/min [facility] Ho spital Male GFR In [...] >32 mL/min Normal ID Date Data Source [id number] 10/21/2019 04:43:00 PM EDT [facility] Name Value Range Interpretation Code Description Data Giovana rce(s) Supporting Document(s) CBC W/AUTOMATED DIFF [facility] COMPLETE BLOOD COUNT Leukocytes [#/volume] in Blood by Automated count 9.1 10^3/uL 4.2 - 1 1.0 [facility] Erythrocytes [#/volume] in Blood by Automated count 5.69 10^6/uL 4. 50 - 6.30 [facility] Hemoglobin [Mass/volume] in Blood 16.3 g/dL 14.0 - 16.0 H [facility] Hematocrit [Volume Fraction] of Blood by Automated count 50.9 % 4 1.0 - 51.0 [facility] Erythrocyte mean corpuscular volume [Entitic volume] by Auto mated count 89.5 fL 80.0 - 94.0 [facility] Erythrocyte mean corpuscular hemoglobin [Entitic mass] by Automated count 28.6 pg 27.0 - 34.0 [facility] Erythrocyte mean corpuscular hemoglobin concentration [Mass/volume] by Automated count 32.0 g/dL 31.0 - 36.0 [facility] Erythrocyte distribution width [Ratio] by Automated count 13.9 % 11.5 - 14.8 [facility] Platelets [#/volume] in Blood by Automated count 224 10^3/uL 150 - 45 0 [facility] Platelet mean volume [Entitic volume] in Blood by Automated count 8.9 fL 7.4 - 10.4 [facility] Neutrophils/100 leukocytes in Blood by Automated count 72.7 % 37. 0 - 80.0 [facility] Lymphocytes/100 leukocytes in Blood by Manual count 15.4 % 25.0 - 40.0 L [facility] Monocytes/100 leukocytes in Blood by Automated count 9.1 % 3.0 - 8.0 H [facility] Eosinophils/100 leukocytes in Blood by Automated count 2.4 % 0.0 - 7.0 [facility] Basophils/100 leukocytes in Blood by Automated count 0.2 % 0.0 - 2.0 [facility] %IG 0.2 % 0.0 - [facility].0 [facility] % 0.0 - 0.0 [facility] al Neutrophils [#/volume] in Blood by Automated count 6.61 10^3/uL 2.00 - 6.90 [facility] Lymphocytes [#/volume] in Blood by Automated count 1.40 10^3/uL 0.60 - 3.40 [facility] Monocytes [#/volume] in Blood by Automated count 0.83 10^3/uL 0.00 - 0.90 [facility] Eosinophils [#/volume] in Blood by Automated count 0.22 10^3/uL 0.00 - 0.70 [facility] Basophils [#/volume] in Blood by Automated count 0.02 10^3/uL 0.00 - 0.20 [facility] #IG 0.02 10^3/uL 0.00 - 0.10 [facility] #NRBC 0.00 10^3/uL 0.00 - 0.00 [facility] MANUAL DIFF NOT INDICATED [facility] RBC MORPH NOT INDICATED [facility] spital ID Date Data Source [id number] 10/21/2019 03:35:00 PM EDT [facility] ([facility]) Name Value Range Interpretation Code Description Data Giovana rce(s) Supporting Document(s) Urinalysis Laboratory test result [facility] ([facility]) SOURCE: Clean Catch Source Laboratory test result [facility] ([facility]) SOURCE: Clean Catch Color Laboratory test result [facility] ([facility]) SOURCE: Clean Catch pH 5 5-9 [facility] ([facility]) SOURCE: Clean Catch Clarity Laboratory test result [facility] ([facility]) SOURCE: Clean Catch Spec [place] 1.010 1.001-1.030 [facility] ([facility]) SOURCE: Clean Catch Glucose Laboratory test result [facility] ([facility]) SOURCE: Clean Catch Bilirubin Laboratory test result [facility] ([facility]) SOURCE: Clean Catch Ketone Laboratory test result [facility] ([facility]) SOURCE: Clean Catch Protein Laboratory test result [facility] ([facility]) SOURCE: Clean Catch Blood 10 Abnormal (applies to non-numeric res ults) [facility] ([facility]) SOURCE: Clean Catch Nitrite Laboratory test result [facility] ([facility]) SOURCE: Clean Catch Urobilinogen Laboratory test result [facility] ([facility]) SOURCE: Clean Catch Leuk Est Laboratory test result [facility] ([facility]) SOURCE: Clean Catch RBC Laboratory test result [facility] ([facility]) SOURCE: Clean Catch Microscopic Laboratory test result M EDENT ([facility]) SOURCE: Clean Catch Epithelial Laboratory test result [facility] ([facility]) SOURCE: Clean Catch ID Date Data Source [id number] 10/21/2019 04:12:00 PM EDT [facility] Name Value Range Interpretation Code Description Data Giovana rce(s) Supporting Document(s) URINALYSIS [facility] Hospi giovanna URINALYSIS SOURCE Clean Catch [facility]osp ital COLOR yellow NORMAL: Yellow [facility] CLARITY clear NORMAL: Clear [place] [facility] Specific gravity of Urine by Test strip 1.010 1.001 - 1.030 [facility] pH 5 5 - 9 [facility] Hospit al Glucose [Mass/volume] in Urine by Test strip NORM NORMAL: Negat [facility] Bilirubin.total [Presence] in Urine by Test strip NEG NORMAL: Negative [facility] Ketones [Presence] in Urine by Test strip NEG NORMAL: Negative [facility] Protein [Mass/volume] in Urine by Test strip NEG NORMAL: Negat [facility] Nitrite [Presence] in Urine by Test strip NEG NORMAL: Negative [facility] BLOOD 10 NORMAL: Negative A [facility] Leukocyte esterase [Presence] in Urine by Test strip NEG MILAGROS L: Negative [facility] Urobilinogen [Mass/volume] in Urine by Test strip NOR less vanessa n 1.0 mg/dL [facility] MICROSCOPIC See Below [facility] ital Erythrocytes [#/volume] in Urine by Test strip 0 - 1 NORMAL: NON E SEEN [facility] EPITHELIAL FEW NORMAL: NONE SEEN [facility] Hospital ID Date Data Source [id number] 09/14/2019 03:51:00 PM [facility] Patient Name: NICK TRUJILLO : 1990 Sex: M Pt Unit #: [id number] Location:[facility] Provider: Visit Date/Time: 09/14/19 Primary Insurance: [facility] Secondary Insurance: Self Pay Intake Vital Signs [...] - ages 13-64 HIV testing Offer: No [facility] Social History (Updated 09/14/19 @ 15:51 by [...] arrange this because he is moving to [facility] this month and it may be hard to keep appointments. Here with forms for DSS to get some home health services. He seems to identify the problem with his right foot as the main reason for this. He has been seeing a surgeon in [place] for this and they are apparently recommending [...] of unspecified foot, initial encounter SNOMED Code(s): 387324293 Category: Medical Plan - Kota Anderson MD: Possibly soft tissue but worth doing an X ray to look at possible fractures. Continue conservative treatment. Encouraged him to consider taking Tylenol more often. (2) Low back pain at multiple sites: Status: Acute Code(s): M54.5 - Low back pain SNOMED Code(s): 204411533 Category: Medical Plan - Kota Anderson MD: [...] rce(s) Supporting Document(s) ID Date Data Source [id number] 08/12/2019 02:08:00 PM [facility] Patient Name: NICK TRUJILLO : 1990 Sex: M Pt Unit #: [id number] Location:[facility] Provider: Visit Date/Time: 08/12/19 Primary Insurance: [facility] Secondary Insurance: Self Pay Intake Vital Signs [...] states medicine Dr. Anderson prescribed is working [employer] Required: No Is patient in pain?: Yes [...] offer been met?: Patient reports past refusal [facility] Medical History Acne (Chronic) Acne vulgaris [...] obesity due to excess calories SNOMED Code(s): 332483400 Category: Medical Electronically Signed By: <Electronically signed by Lance Arenas DO> Date/Time Signed: 08/12/19 1432 Name Value Range Interpretation Code Description Data Giovana rce(s) Supporting Document(s) Procedure Social History Code Duration Value Status Description Data Source(s ) Alcohol intake 06/28/2020 12:00:00 AM EST Current non-d roscoe of alcohol (finding) completed Current non-drinker of alcohol (finding) [facility] Tobacco use and exposure 06/28/2020 12:00:00 AM EST Never used co mpleted Never used [facility] Smoking 06/28/2020 12:00:00 AM EST Never smoker completed Never s [facility] Alcohol intake 06/06/2020 12:00:00 AM EST Current non-d roscoe of alcohol (finding) completed Current non-drinker of alcohol (finding) [facility] Alcohol intake 05/09/2020 12:00:00 AM EDT Current non-d roscoe of alcohol (finding) completed Current non-drinker of alcohol (finding) [facility] Alcohol intake 04/26/2020 12:00:00 AM EDT Current non-d roscoe of alcohol (finding) completed Current non-drinker of alcohol (finding) [facility] Alcohol intake 02/09/2020 12:00:00 AM EDT No completed [facility] Smoking 02/09/2020 12:00:00 AM EDT Never smoker completed Never [facility] Alcohol intake 02/04/2020 12:00:00 AM EDT No completed [facility] Smoking 02/04/2020 12:00:00 AM EDT Never smoker completed Never [facility] Caffeine Use Details 10/06/2019 12:00:00 AM EDT completed [facility] ([facility]) 10/06/2019 12:00:00 AM EDT Never smoked tobacco comple sheri Never smoked tobacco [facility] ([facility] Smoking 10/06/2019 12:00:00 AM EDT Never smoker completed Never s [facility] ([facility]) 09/14/2019 03:51:40 PM EST Never smoker completed Never s [facility] Smoking 09/14/2019 03:51:00 PM EST Never smoker completed Never s [facility] 08/12/2019 02:22:00 PM EST Never smoker completed Never s [facility] 08/12/2019 02:22:00 PM EST No completed No [facility] 08/12/2019 02:22:00 PM EST No completed No [facility] Vital Signs ID Date Data Source UNK Name Value Range Interpretation Code Description Data Source(s) Body surface area Derived from formula 2.86 m2 2.86 m2 [facility] ([facility]) Body weight 185.579 kg 185.579 kg [facility] ([facility]) [place] body weight 172 [lb_av] 172 [lb_av] [facility] T ([facility]) Body mass index (BMI) [Ratio] 57.1 kg/m2 57.1 k g/m2 [facility] ([facility]) Body weight 409.12 [lb_av] 409.12 [lb_av] [facility] T ([facility]) Body height 71 [in_i] 71 [in_i] [facility] ([facility]) 5'11" Diastolic blood pressure 88 mm[Hg] 88 mm[Hg] [facility] ([facility]) Systolic blood pressure 154 mm[Hg] 154 mm[Hg] [facility] Body surface area Derived from formula 2.79 m2 2.79 m2 [facility] ([facility]) Body weight 184.162 kg 184.162 kg [facility] ([facility]) [place] body weight 160 [lb_av] 160 [lb_av] [facility] T ([facility]) Body mass index (BMI) [Ratio] 59.9 kg/m2 59.9 k g/m2 [facility] ([facility]) Body weight 406.00 [lb_av] 406.00 [lb_av] [facility] T ([facility]) Body height 69 [in_i] 69 [in_i] [facility] ([facility]) 5'9" Body temperature 96.8 [degF] 96.8 [degF] [facility] ([facility]) Oxygen saturation in Arterial blood by Pulse oximetry 99 % 99 % [facility] ([facility]) Heart rate 99 /min 99 /min [facility] ([facility]) Diastolic blood pressure 80 mm[Hg] 80 mm[Hg] [facility] ([facility], ) Systolic blood pressure 122 mm[Hg] 122 mm[Hg] M EDENT ([facility], ) Diastolic blood pressure 82 mm[Hg] 82 mm[Hg] eCW1 ([facility]) Systolic blood pressure 136 mm[Hg] 136 mm[Hg] e CW1 ([facility]) Body mass index (BMI) [Ratio] 59.41 kg/m2 59.41 kg/m2 W1 ([facility]) Body height 71 [in_i] 71 [in_i] eCW1 ([facility]) Body weight 426 [lb_av] 426 [lb_av] eCW1 ([facility]) Diastolic blood pressure 92 mm[Hg] 92 mm[Hg] eCW1 ([facility]) Systolic blood pressure 138 mm[Hg] 138 mm[Hg] e CW1 ([facility]) Body mass index (BMI) [Ratio] 57.46 kg/m2 57.46 kg/m2 W1 ([facility]) Body height 71 [in_i] 71 [in_i] eCW1 ([facility]) Body weight 412 [lb_av] 412 [lb_av] eCW1 ([facility]) Body weight 180.986 kg 180.986 kg [facility] ([facility]) Body weight 399.00 [lb_av] 399.00 [lb_av] MED[facility] T ([facility]) Oxygen saturation in Arterial blood by [facility]ulse oximetry 98 % 98 % [facility] Respiratory rate 18 /min 18 /min [facility] Body temperature 97.6 [degF] 97.6 [degF] [facility] Heart rate 96 /min 96 /min [facility] ([facility]) Diastolic blood pressure 78 mm[Hg] 78 mm[Hg] [facility] ([facility]) Systolic blood pressure 132 mm[Hg] 132 mm[Hg] M EDENT ([facility]) Diastolic blood pressure 61 mm[Hg] 61 mm[Hg] [facility] Systolic blood pressure 120 mm[Hg] 120 mm[Hg] [facility] Oxygen saturation in Arterial blood by Pulse oximetry 93 % 93 % [facility] Body temperature 36.5 Opal 36.5 Opal [facility] Respiratory rate 16 /min 16 /min [facility] Heart rate 88 /min 88 /min [facility] Body mass index (BMI) [Ratio] 55.37 kg/m2 55.37 kg/m2 [facility] Body weight 180.078 kg 180.078 kg [facility] Body height 180.3 cm 180.3 cm [facility] Oxygen saturation in Arterial blood by Pulse oximetry 95 % 95 % [facility] Body mass index (BMI) [Ratio] 55.50 kg/m2 55.50 kg/m2 [facility] Body weight 180.486 kg 180.486 kg [facility] Body height 180.3 cm 180.3 cm [facility] Heart rate 96 /min 96 /min [facility] Diastolic blood pressure 61 mm[Hg] 61 mm[Hg] [facility] Systolic blood pressure 112 mm[Hg] 112 mm[Hg] [facility] Body weight 180.533 kg 180.533 kg [facility] ([facility]) Body mass index (BMI) [Ratio] 55.5 kg/m2 55.5 k g/m2 [facility] ([facility]) Heart rate 96 /min 96 /min [facility]) Diastolic blood pressure 79 mm[Hg] 79 mm[Hg] [facility] ([facility]) Systolic blood pressure 143 mm[Hg] 143 mm[Hg] M [facility] ([facility]) Body weight 398.00 [lb_av] 398.00 [lb_av] [facility] T ([facility]) Temp 97.7 Body height 71 [in_i] 71 [in_i] [facility] ([facility]) 5'11" Body weight 180.533 kg 180.533 kg [facility] ([facility]) Body weight 398.00 [lb_av] 398.00 [lb_av] MED[facility] T ([facility]) Oxygen saturation in Arterial blood by Pulse oximetry 97 % 97 % [facility] ([facility]) Respiratory rate 22 /min 22 /min [facility] ( [facility]) Body temperature 97.6 [degF] 97.6 [degF] [facility] ([facility]) Heart rate 86 /min 86 /min [facility] ([facility]) Diastolic blood pressure 72 mm[Hg] 72 mm[Hg] [facility] ([facility]) Systolic blood pressure 130 mm[Hg] 130 mm[Hg] M [facility]ENT ([facility]) Body surface area 2.79 m2 2.79 m2 [facility] ([facility]) Body mass index (BMI) [Ratio] 54.1 kg/m2 54.1 k g/m2 [facility] ([facility]) Body height 71 [in_i] 71 [in_i] [facility] ([facility]) 5'11" Body weight 175.997 kg 175.997 kg [facility] ([facility]) per chart Body weight 388.00 [lb_av] 388.00 [lb_av] MED[facility] T ([facility]) Body surface area 2.79 m2 2.79 m2 [facility] ([facility]) Body mass index (BMI) [Ratio] 54.1 kg/m2 54.1 k g/m2 [facility] ([facility]) Body height 71 [in_i] 71 [in_i] [facility] ([facility]) 5'11" Body weight 175.997 kg 175.997 kg [facility] ([facility]) Body weight 388.00 [lb_av] 388.00 [lb_av] [facility] T ([facility]) Oxygen saturation in Arterial blood by Pulse oximetry 96 % 96 % [facility] ([facility]) Respiratory rate 24 /min 24 /min [facility] ( [facility]) wearing mask Body temperature 97.8 [degF] 97.8 [degF] [facility] ([facility]) Heart rate 76 /min 76 /min [facility]) Diastolic blood pressure 58 mm[Hg] 58 mm[Hg] [facility] ([facility]) Systolic blood pressure 126 mm[Hg] 126 mm[Hg] M [facility] ([facility]) Body surface area 2.78 m2 2.78 m2 [facility] ([facility]) Body mass index (BMI) [Ratio] 53.6 kg/m2 53.6 k g/m2 [facility] ([facility]) Body height 71 [in_i] 71 [in_i] [facility] ([facility]) 5'11" Body weight 174.296 kg 174.296 kg [facility] ([facility]) Body weight 384.25 [lb_av] 384.25 [lb_av] [facility] T ([facility]) Oxygen saturation in Arterial blood by Pulse oximetry 98 % 98 % [facility]) Respiratory rate 18 /min 18 /min [facility] ( [facility]) Body temperature 98.0 [degF] 98.0 [degF] [facility] ([facility]) Heart rate 94 /min 94 /min [facility] ([facility]) Diastolic blood pressure 64 mm[Hg] 64 mm[Hg] [facility] ([facility]) Systolic blood pressure 118 mm[Hg] 118 mm[Hg] [facility] Heart rate 92 /min 92 /min [facility] ([facility]) Diastolic blood pressure 88 mm[Hg] 88 mm[Hg] [facility] ([facility]) Systolic blood pressure 140 mm[Hg] 140 mm[Hg] N [facility] ([facility]) ID Date Data Source [id number] 06/09/2020 09:34:40 AM [facility] Name Value Range Interpretation Code Description Data Source(s) WEIGHT RECORDED 417.6 lb 417.6 lb [facility] Body height Measured 70.98 in 70.98 in [facility] ID Date Data Source [id number] 05/09/2020 02:17:55 PM [facility] Name Value Range Interpretation Code Description Data Source(s) WEIGHT RECORDED 407 lb 407 lb [facility] Body height Measured 70.98 in 70.98 in [facility] ID Date Data Source [id number] 01/14/2020 09:34:45 AM EDT [facility] Name Value Range Interpretation Code Description Data Source(s) WEIGHT RECORDED 384.00 pounds 384.00 pounds [facility] Height 71 Inches 071 Inches [facility] Patient Treatment Plan of Care Planned Activity Planned Date Details Description Data Source (s) Misc. Devices (DURABLE MEDICAL EQUIPMENT SEE SIG) XX M ISC 06/28/2020 12:00:00 AM [facility] ospital Clindamycin 0.01 MG/MG Topical Gel 06/12/2020 12:00:00 AM EST eCW1 ([facility]) Cephalexin 500 MG Oral Capsule 06/06/2020 01:30:00 PM [facility] lidocaine (XYLOCAINE) 2 % urojet 20 mL 06/06/2020 01:30:00 PM [facility] Doxycycline Monohydrate 50 MG Oral Capsule 05/15/2020 12:00:00 AM E DT eCW1 ([facility]) ciclopirox 10 MG/ML Medicated Shampoo 05/15/2020 12:00:00 AM EDT eCW1 ([facility]) alclometasone dipropionate 0.5 MG/ML Topical Cream 05/15/2020 12 :00:00 AM EDT eCW1 ([facility]) Doxycycline Monohydrate 50 MG Oral Capsule 05/15/2020 12:00:00 AM E DT eCW1 ([facility]) ciclopirox 10 MG/ML Medicated Shampoo 05/15/2020 12:00:00 AM EDT eCW1 ([facility]) alclometasone dipropionate 0.5 MG/ML Topical Cream 05/15/2020 12 :00:00 AM EDT eCW1 ([facility]) Doxycycline Monohydrate 50 MG Oral Capsule 05/15/2020 12:00:00 AM E DT eCW1 ([facility]) ciclopirox 10 MG/ML Medicated Shampoo 05/15/2020 12:00:00 AM EDT eCW1 ([facility]) alclometasone dipropionate 0.5 MG/ML Topical Cream 05/15/2020 12 :00:00 AM EDT eCW1 ([facility]) alclometasone dipropionate 0.5 MG/ML Topical Cream 05/15/2020 12 :00:00 AM EDT eCW1 ([facility]) Doxycycline Monohydrate 50 MG Oral Capsule 05/15/2020 12:00:00 AM E DT eCW1 ([facility]) ciclopirox 10 MG/ML Medicated Shampoo 05/15/2020 12:00:00 AM EDT eCW1 ([facility]) Docusate Sodium 100 MG Oral Capsule [DOK] 04/07/2020 12:00:00 AM ED T [facility] Desvenlafaxine Succinate ER 100 MG Oral Tablet Extended Release 24 Hour (PRISTIQ) 04/07/2020 12:00:00 AM EDT [facility] Nystatin 100 UNT/MG Topical Powder 03/27/2020 12:00:00 AM EDT [facility] Oxycodone Hydrochloride 5 MG Oral Tablet 02/09/2020 12:00:00 AM EDT [facility] Misc. Devices (DURABLE MEDICAL EQUIPMENT SEE SIG) [facility] 10/09/2018 12:00:00 AM EDT [facility] ospital gabapentin 100 MG Oral Capsule 03/03/2018 12:00:00 AM EDT [facility] maalox/lidocaine/diphenhydrAMINE (RADIATION MIXTURE) 1 :1:1 oral suspension 05/29/2017 12:00:00 AM EDT [facility] Melatonin 3 MG Oral Tablet [facility] doxycycline hyclate 50 MG Oral Capsule [facility] PARoxetine (PAXIL) 30 MG tablet [facility]
[2020-08-24] MEDS ORDERED: PYRI1TAB5 PO (20:47)
--- NOTE | 2020-08-24 21:11 | ECGEPIP ---
[facility] - ED Test Date: 2020-08-24 Pat Name: NICK MEEK Department: Room: - Gender: Male Strip Feeder: ty : 1990 Requested By: DILAN Zamarripa PA-C Order Number: [id number] Reading MD: Damir Peck Measurements Intervals [place] Rate: 94 P: 39 MA: 162 QRS: -15 QRSD: 100 T: 12 QT: 336 QTc: 421 Interpretive Statements SINUS RHYTHM POSSIBLE INCOMPLETE RIGHT BUNDLE BRANCH BLOCK NSTTW ABNORMALITY(S) NO PRIORS FOR COMPARISON Electronically Signed on 08-24-2020 21:11:14 EST by Damir Peck
[2020-08-24 22:03] LABS: CHLAMYDIA DNA AMPLIFICATION NEGATIVE (NEGATIVE); GC DNA AMPLIFICATION NEGATIVE (NEGATIVE)
[2020-08-24 22:55] VITALS: BP 126/76
== END 2020-08-24 21:00 | disposition home or self-care (01) ==
LOC: M ED 17:56
DX: R31.9 Hematuria, unspecified (principal); R30.0 Dysuria; R94.31 Abnormal electrocardiogram [ECG] [EKG]; I10 Essential (primary) hypertension; E78.5 Hyperlipidemia, unspecified; G47.33 Obstructive sleep apnea (adult) (pediatric); J45.909 Unspecified asthma, uncomplicated; Z88.6 Allergy status to analgesic agent; Z88.8 Allergy status to other drugs, medicaments and biological substances; Z79.899 Other long term (current) drug therapy

== ENCOUNTER 2020-08-30 15:06 | Emergency (ER) | payer OTHER ==
[~2020-08-30] VITALS: Ht 180.3 cm; Wt 183.2 kg
[~2020-08-30 15:06] MED LIST changes: +PYRI1TAB5 PO
[2020-08-30 16:12] LABS: BASO % 0.2 % (0.0-1.0); EOS # 0.3 10^3/uL (0.0-0.5); HEMATOCRIT 53.9 % (42.0-52.0); HEMOGLOBIN 17.1 g/dl (13.5-17.5); LYMPH # 1.4 10^3/uL (1.5-5.0); LYMPH % 14.9 % (24.0-44.0); MEAN CORPUSCULAR HEMOGLOBIN 29.1 pg (27.0-33.0); MEAN CORPUSCULAR HGB CONC 31.7 g/dl (32.0-36.5); MEAN CORPUSCULAR VOLUME 91.8 fl (80.0-96.0); MONO # 0.7 10^3/uL (0.0-0.8); MONO % 7.6 % (0.0-5.0); NEUTROPHILS # 7.1 10^3/uL (1.5-8.5); NEUTROPHILS % 74.1 % (36.0-66.0); PLATELET COUNT, AUTOMATED 241 10^3/uL (150-450); RED BLOOD COUNT 5.87 10^6/uL (4.30-6.10); WHITE BLOOD COUNT 9.6 10^3/uL (4.0-10.0)
[2020-08-30] MEDS ORDERED: GI COCKTAIL 50ML BTL(HYOSCYAMINE/MAALOX/LIDOCAINE VISCOUS)(1:3:1) PO ONE (16:45)
[2020-08-30 16:47] LABS: ALBUMIN 3.9 GM/DL (3.2-5.2); BILIRUBIN,DIRECT 0.1 MG/DL (0.0-0.2); BILIRUBIN,TOTAL 0.3 MG/DL (0.2-1.0); TOTAL PROTEIN 8.1 GM/DL (6.4-8.2)
[2020-08-30 17:05] LABS: MONO SCRN NEGATIVE (NEGATIVE)
[2020-08-30] MEDS: GASTROGRAFIN SOLUTION 30ML PO SCH ×2 (17:31→18:00)
[2020-08-30] MEDS ORDERED: ISOVUE-370 76% 100ML VIAL As Ordered ONE (18:49)
--- NOTE | 2020-08-30 19:50 | REPVR ---
PROCEDURE INFORMATION: Exam: CT Abdomen And Pelvis With Contrast Exam date and time: 08/30/2020 7:05 PM Age: 30 years old Clinical indication: Abdominal pain; Additional info: Umbilical/epigastric pain TECHNIQUE: Imaging protocol: Computed tomography of the abdomen and pelvis with contrast. Axial, coronal and sagittal reformatted images were created and reviewed. Radiation optimization: All CT scans at this facility use at least one of these dose optimization techniques: automated exposure control; mA and/or kV adjustment per patient size (includes targeted exams where dose is matched to clinical indication); or iterative reconstruction. Contrast material: ISOVUE 370; Contrast volume: 100 ml; Contrast route: INTRAVENOUS (IV); COMPARISON: CT ABD PELVIS W/O CONTRAST 08/24/2020 7:23 PM FINDINGS: Liver: Unremarkable. Gallbladder and bile ducts: Status post cholecystectomy. No biliary ductal dilatation. Pancreas: Unremarkable. Spleen: Unremarkable. Adrenal glands: Normal. No mass. Kidneys and ureters: 1.9 cm simple left renal cyst (no follow-up is indicated based on the imaging appearance). No radiodense calculi. No hydronephrosis. Stomach and bowel: No bowel wall thickening. No obstruction. No pneumatosis. Appendix: Status post appendectomy. Intraperitoneal space: No free fluid. No organized fluid collection. No free air. Vasculature: Unremarkable. No aneurysm. Lymph nodes: No pathologically enlarged lymph nodes. Urinary bladder: Unremarkable as visualized. Reproductive: Unremarkable. Bones/joints: No acute osseous abnormality. Degenerative changes. Soft tissues: Fat containing supraumbilical and paraumbilical hernias. IMPRESSION: 1. No CT evidence of acute intra-abdominal or pelvic pathology. 2. Additional findings, as above. COMMENTS: Consistent with the [employer]'s Incidental Findings Committee white paper (J Am Homer Radiol 2018): Any incidental renal lesion less than 1 cm or classified as too small to characterize, or any incidental cystic renal lesion characterized as simple-appearing, is likely benign. No follow-up imaging is recommended for these lesions per consensus recommendations based on imaging criteria. Electronically signed by: Jeff Parekh On 08/30/2020 19:50:33 PM
[2020-08-30 20:37] VITALS: BP 133/84
== END 2020-08-30 21:00 | disposition home or self-care (01) ==
LOC: M ED 15:06
DX: R10.13 Epigastric pain (principal); R11.2 Nausea with vomiting, unspecified; I10 Essential (primary) hypertension; J44.9 Chronic obstructive pulmonary disease, unspecified; F33.9 Major depressive disorder, recurrent, unspecified; F41.9 Anxiety disorder, unspecified; G43.909 Migraine, unspecified, not intractable, without status migrainosus; G47.33 Obstructive sleep apnea (adult) (pediatric); K21.9 Gastro-esophageal reflux disease without esophagitis; E66.9 Obesity, unspecified; Z79.899 Other long term (current) drug therapy; Z88.5 Allergy status to narcotic agent; Z88.8 Allergy status to other drugs, medicaments and biological substances
CPT/HCPCS: 36415; 74177; 80047; 80076; 83690; 85025; 86308; 87880; 99284; Q9963; Q9967

== ENCOUNTER → 2020-09-01 | Outpatient (REF) | payer OTHER ==
[~2020-09-01] MED LIST changes: +DICY20TA11 PO
[2020-09-01 16:02] LABS: ALBUMIN 3.7 GM/DL (3.2-5.2); ALT/SGPT 71 U/L (12-78); BILIRUBIN,TOTAL 0.3 MG/DL (0.2-1.0); BLOOD UREA NITROGEN 19 MG/DL (7-18); CALCIUM LEVEL 9.3 MG/DL (8.5-10.1); CARBON DIOXIDE LEVEL 30 MEQ/L (21-32); CHLORIDE LEVEL 107 MEQ/L (98-107); CHOLESTEROL LEVEL 212 MG/DL (<200); CHOLESTEROL RISK RATIO 5.578 (<5); CREATININE FOR GFR 1.01 MG/DL (0.70-1.30); FERRITIN 38 NG/ML (26-388); GLOMERULAR FILTRATION RATE > 60.0 (>60); GLUCOSE, FASTING 109 MG/DL (70-100); HDL CHOLESTEROL 38 MG/DL (>40); IRON (FE) 52 UG/DL (65-175); LDL CHOLESTEROL 118 MG/DL (<100); NON-HDL-C 174 MG/DL; PERCENT SATURATION 17.2 % (19.7-50.0); SODIUM LEVEL 141 MEQ/L (136-145); TOTAL IRON BINDING CAPACITY 303 UG/DL (250-450); TOTAL PROTEIN 7.7 GM/DL (6.4-8.2); TRIGLYCERIDES LEVEL 282 MG/DL (<150)
[2020-09-01 16:26] LABS: HEPATITIS B SURFACE ANTIGEN NEGATIVE (NEGATIVE)
[2020-09-01 16:53] LABS: HEPATITIS B CORE ANTIBODY IGM NEGATIVE (NEGATIVE); HEPATITIS C VIRUS ABY INDEX 0.2 INDEX (<0.8)
[2020-09-01 16:56] LABS: HEPATITIS A ANTIBODY IGM NEGATIVE (NEGATIVE)
[2020-09-04 17:06] LABS: ANTI-MITOCHONDRIAL ANTIBODY <20.0 Units (0.0-20.0); LIVER-KIDNEY MICROSOMAL ABY <20.1 Units (0.0-20.0)
== END ==
LOC: M SFHCPLAZ 13:48
DX: R74.8 Abnormal levels of other serum enzymes (principal)

== ENCOUNTER 2020-09-02 13:21 | Emergency (ER) | payer OTHER ==
[~2020-09-02 13:21] MED LIST changes: -DICY20TA11 PO
[2020-09-02] MEDS ORDERED: ONDANSETRON 4 MG ORAL DISINTEGRATING TAB PO ONE (14:00)
[2020-09-02 14:26] LABS: BASO % 0.2 % (0.0-1.0); EOS # 0.3 10^3/uL (0.0-0.5); EOS % 3.3 % (0.0-3.0); HEMATOCRIT 49.8 % (42.0-52.0); HEMOGLOBIN 15.9 g/dl (13.5-17.5); LYMPH # 1.9 10^3/uL (1.5-5.0); MEAN CORPUSCULAR HEMOGLOBIN 29.1 pg (27.0-33.0); MEAN CORPUSCULAR HGB CONC 31.9 g/dl (32.0-36.5); MONO # 0.7 10^3/uL (0.0-0.8); MONO % 7.6 % (0.0-5.0); NEUTROPHILS # 5.8 10^3/uL (1.5-8.5); NEUTROPHILS % 66.6 % (36.0-66.0); PLATELET COUNT, AUTOMATED 203 10^3/uL (150-450); RED BLOOD COUNT 5.47 10^6/uL (4.30-6.10); WHITE BLOOD COUNT 8.7 10^3/uL (4.0-10.0)
[2020-09-02 14:39] LABS: ALBUMIN 3.5 GM/DL (3.2-5.2); ALT/SGPT 69 U/L (12-78); BILIRUBIN,DIRECT 0.1 MG/DL (0.0-0.2); BILIRUBIN,TOTAL 0.4 MG/DL (0.2-1.0); BLOOD UREA NITROGEN 14 MG/DL (7-18); CARBON DIOXIDE LEVEL 27 MEQ/L (21-32); CHLORIDE LEVEL 111 MEQ/L (98-107); CREATININE FOR GFR 0.89 MG/DL (0.70-1.30); GLOMERULAR FILTRATION RATE > 60.0 (>60); GLUCOSE, FASTING 97 MG/DL (70-100); LIPASE 116 U/L (73-393); POTASSIUM SERUM 3.8 MEQ/L (3.5-5.1); SODIUM LEVEL 144 MEQ/L (136-145); TOTAL PROTEIN 7.4 GM/DL (6.4-8.2)
--- NOTE | 2020-09-02 15:05 | REP ---
INDICATION: epigastric pain. COMPARISON: 11/01/2014. TECHNIQUE: AP views of abdomen and pelvis performed. FINDINGS: There is no radiographic evidence of bowel obstruction. No significantly dilated bowel loops are seen. Metallic clips are seen in the right abdomen. IMPRESSION: Unremarkable bowel gas pattern. <Electronically signed by Matti Sullivan > 09/02/20 [id number]
[2020-09-02] MEDS ORDERED: DICY20TA11 PO (15:37)
[2020-09-02] MEDS ORDERED: ONDA4TAB6 PO (15:37)
[2020-09-02] MEDS ORDERED: DICYCLOMINE 10 MG CAP PO ONE (15:45)
[2020-09-02 15:47] VITALS: BP 138/74
== END 2020-09-02 15:51 | disposition home or self-care (01) ==
LOC: M ED 13:21 → EDBD 13:21 → M ED 15:51
DX: G89.29 Other chronic pain (principal); R10.13 Epigastric pain; R11.2 Nausea with vomiting, unspecified; K42.9 Umbilical hernia without obstruction or gangrene; Z88.6 Allergy status to analgesic agent; Z88.8 Allergy status to other drugs, medicaments and biological substances; Z79.899 Other long term (current) drug therapy
CPT/HCPCS: 36415; 74018; 80048; 80076; 83690; 85025; 99284; Q0162

== ENCOUNTER 2020-09-05 16:44 | Emergency (ER) | payer OTHER ==
[~2020-09-05] VITALS: Ht 180.3 cm; Wt 184.6 kg
[~2020-09-05 16:44] MED LIST changes: +DICY20TA11 PO
[2020-09-05] MEDS ORDERED: METOCLOPRAMIDE INJ 10MG/2ML VIAL (J2765 PER 1) IV ONE (17:15)
[2020-09-05] MEDS ORDERED: KETOROLAC 30 MG/ML 1ML VIAL IV ONE (17:15)
[2020-09-05 18:48] VITALS: BP 138/75
== END 2020-09-05 18:51 | disposition home or self-care (01) ==
LOC: M ED 16:44 → EDBD 16:44 → M ED 18:51
DX: G43.909 Migraine, unspecified, not intractable, without status migrainosus (principal); I10 Essential (primary) hypertension; J44.9 Chronic obstructive pulmonary disease, unspecified; E78.5 Hyperlipidemia, unspecified; F33.9 Major depressive disorder, recurrent, unspecified; R56.9 Unspecified convulsions; F79 Unspecified intellectual disabilities; Z88.5 Allergy status to narcotic agent; Z88.8 Allergy status to other drugs, medicaments and biological substances; J30.2 Other seasonal allergic rhinitis; Z79.899 Other long term (current) drug therapy
CPT/HCPCS: 96374; 96375; 99284; J1885; J2765

== ENCOUNTER → 2020-09-06 | Outpatient (CLI) | payer OTHER ==
--- NOTE | 2020-09-06 09:38 | REP ---
INDICATION: HERNIA RECURRENCE COMPARISON: None. TECHNIQUE: Real time alberto scale ultrasound examination using linear and curved array high frequency transducer. FINDINGS: Directed ultrasound examination in the periumbilical and epigastric region demonstrates a 1.4 cm fat containing defect in the supra umbilical region and a 1.5 cm fat containing defect along the left side of the umbilicus consistent with small fat containing hernias. IMPRESSION: Small focal fat containing supraumbilical and periumbilical hernias consistent with the findings on recent CT. <Electronically signed by Mahin Carbajal > 09/06/20 0934
== END ==
LOC: M RAD 08:54
PROVIDERS: ATTEND Surgery
DX: K43.2 Incisional hernia without obstruction or gangrene (principal)

== ENCOUNTER 2020-09-09 15:45 | Emergency (ER) | payer OTHER ==
[~2020-09-09] VITALS: Ht 180.3 cm; Wt 184.9 kg
[2020-09-09] MEDS ORDERED: NORCO, ANEXSIA 5/325MG TABLET (HYDROcodone/ACETAMINOPHEN) PO ONE (16:15)
--- OUTSIDE RECORDS SUMMARY | 2020-09-09 16:16 | CCD ---
Author Author [facility] Organization [facility] Address Unknown Phone Unavailable Care Team Providers Care Child Day Care Provider Name Role Phone Ryan Dixon Unavailable PROBLEMS Type Condition ICD9-CM Code IPT71-LL Code Onset Dates Condition S tatus W/U Status Risk SNOMED Code Notes Problem Learning disability 315.2 Active confirmed 432450459 Problem Stricture, ureter 593.3 Active confirmed 25 803292 Problem Hypertension 401.9 Active confirmed 3715748 3 Problem Obesity 278.00 Active confirmed 554398353 Problem Candidal intertrigo 112.3 Active confirmed 320536554 Problem Acute renal failure 584.9 Active confirmed 847168597285527 Problem Ivy rash of groin 112.89 Active confirmed 74746822 Problem Abscess of groin, right 682.2 Active confirmed 479167294 Problem Migraines 346.90 Active confirmed 20418593 Problem Depression 311 Active confirmed 483678723 Problem Asthma 493.90 Active confirmed 468568488 Problem Seizure disorder G40.909 Active confirmed 12 3655124 Problem Hematuria 599.70 Active confirmed 81424437 Problem Obstructive sleep apnea G47.33 Active confirmed 94092997 Problem Seizure disorder 345.90 Active confirmed 128 600873 Problem BMI 50.0-59.9, adult V85.43 Active confirmed 495085837 Problem Gastritis 535.50 Active confirmed 9169826 Problem BMI 50.0-59.9, adult Z68.43 Active confirmed 169716140 Problem Mild intermittent asthma without complication J45. 20 Active confirmed 227025484 ALLERGIES Allergen (clinical drug ingredient) Drug/Non Drug Allergy do cumented on EMR Reaction Allergy Type Onset Date Status naproxen Naprosyn([facility] Code:[address]-87) Nausea/Vomiting Drug Ben rgy Active phenytoin Dilantin Rash Drug Allergy Active amoxicillin Amoxicillin([facility] Code:[address]-79) RASH Drug Aller gy Active codeine Codeine Sulfate([facility] Code:[address]-67) Nausea/Vomiting Dr rachell Allergy Active ENCOUNTERS from 1988 to 2020 Encounter Location Date Provider Diagnosis [address] [address] Aug, Ryan Zack IMMUNIZATIONS Vaccine Route Administration Date Status Influenza (6mo & up) Fluzone IM Intramuscular May 25, 2013 Ad ministered SOCIAL HISTORY Sex Assigned At : Social History Observation Description Sex Assigned At Unknown REASON FOR REFERRAL No Information VITAL SIGNS No information MEDICATIONS Medication SIG (Take, Route, Frequency, Duration) Notes Start Da te End Date Status Vitamin D-3 5000 UNIT 2 TABS Orally QWEEK Active Topamax 200 MG 1 tablet Orally BID for 30 Days Active MiraLax - 1 packet mixed with 8 ounces of fluid Or ally Once a day for 30 day(s) Active Carafate 1 GM 1 tablet on an empty stomach Orally twice a day as needed for 30 day(s) November, Active Breo Ellipta 100-25 MCG/INH 1 puff Inhalation Once a day Not-Taking Prilosec 20 mg 1 capsule Orally twice daily for 30 day(s) Jan, Active Alclometasone Dipropionate 0.05 % 1 application Traction Power Engineer ally Twice a day for TEN DAYS ONLY to dry skin rash on face for 10 days Active Imitrex 100 MG 1 tablet as needed Orally Twice a day Active Ciclopirox 1 % 1 application Externally Thr ee times a Week to scalp and sow area for 30 days Active Montelukast Sodium 10 mg 1 tablet Orally at bedtime for 30 day(s) Active Cetirizine HCl 10 mg 1 tablet as needed Orally Once a day for 30 day( s) Active Incruse Ellipta 62.5 MCG/INH 1 puff Inhalation Once a day Active Nystatin 024562 UNIT/GM apply Externally groin Twice a day for 1 month Dec, Active Vitamin D (Ergocalciferol) 33399 UNIT 1 capsule Orally weekly fo r 90 days Aug, Active Zofran 4 MG 1 tablet Orally Once a day for 30 day(s) Active Ibuprofen 600 MG 1 tablet with food or milk as needed Ora lly Three times a day Active Clindamycin Phosphate 1 % 1 application Externally Twice a day for 30 days Active Pristiq 50 mg 1 tablet Orally Once a day for 30 day(s) Active Keppra 500 MG 1 tablet Orally every 12 hrs for 30 days Active Doxycycline Monohydrate 100 MG 1 capsule Orally Twice a day for 30 da y(s) Active Vitamin B12 100 MCG as directed Orally Active Albuterol Sulfate (2.5 MG/3ML) 0.083% 3 ml Inhalation Three times a day as needed for 1 month Active Biotin 1000 MCG 1 tablet Orally Once a day for 30 day(s) Active PROCEDURES No Information RESULTS No Results REASON FOR VISIT no show MEDICAL (GENERAL) HISTORY Type Description Date Medical [...] TREATMENT Next Appt Details Provider Name:Ryan Dixon, 2020 5 02:00:00 PM, [address] [place], [address], Provider Name:Miladis Boo, 11:15:00 AM, [address] [facility], [address] Floor, [place], [address], Insurance Providers Payer Name Payer Address Payer Phone Insured Name Patient Relati onship to Insured Coverage Start Date Coverage End Date [facility] [address] [place] [phone] NICK MEEK self
--- OUTSIDE RECORDS SUMMARY | 2020-09-09 16:16 | CCD ---
Author Author [facility] Organization [facility] Address Unknown Phone Unavailable Care Team Providers Care Command Post Superintendent Name Role Phone Ryan Dixon Unavailable PROBLEMS Type Condition ICD9-CM Code AID43-DT Code Onset Dates Condition S tatus W/U Status Risk SNOMED Code Notes Problem Learning disability 315.2 Active confirmed 171972029 Problem Stricture, ureter 593.3 Active confirmed 25 984476 Problem Hypertension 401.9 Active confirmed 8092708 3 Problem Obesity 278.00 Active confirmed 317876362 Problem Candidal intertrigo 112.3 Active confirmed 262300230 Problem Acute renal failure 584.9 Active confirmed 188499995825847 Problem Ivy rash of groin 112.89 Active confirmed 49622348 Problem Abscess of groin, right 682.2 Active confirmed 789626486 Problem Migraines 346.90 Active confirmed 85593019 Problem Depression 311 Active confirmed 730021067 Problem Asthma 493.90 Active confirmed 912516656 Problem Seizure disorder G40.909 Active confirmed 12 8492514 Problem Hematuria 599.70 Active confirmed 30804009 Problem Obstructive sleep apnea G47.33 Active confirmed 53548063 Problem Seizure disorder 345.90 Active confirmed 128 457451 Problem BMI 50.0-59.9, adult V85.43 Active confirmed 051489546 Problem Gastritis 535.50 Active confirmed 0100968 Problem BMI 50.0-59.9, adult Z68.43 Active confirmed 963243647 Problem Mild intermittent asthma without complication J45. 20 Active confirmed 101990829 ALLERGIES Allergen (clinical drug ingredient) Drug/Non Drug Allergy do cumented on EMR Reaction Allergy Type Onset Date Status naproxen Naprosyn([facility] Code:[address]-08) Nausea/Vomiting Drug Ben rgy Active phenytoin Dilantin Rash Drug Allergy Active amoxicillin Amoxicillin([facility] Code:[address]-90) RASH Drug Aller gy Active codeine Codeine Sulfate([facility] Code:[address]-92) Nausea/Vomiting Dr rachell Allergy Active ENCOUNTERS from 1988 to 2020-09-07 Encounter Location Date Provider Diagnosis [facility] [address] [place] [address] Aug Ryan Zack IMMUNIZATIONS Vaccine Route Administration Date [...] 5000 UNIT 2 TABS Orally QWEEK Active Biotin 1000 MCG 1 tablet Orally Once a day for 30 day(s) Active Carafate 1 GM 1 tablet on an empty stomach Orally twice a day as needed for 30 day(s) November, Active Nystatin 367047 UNIT/GM apply Externally groin Twice a day for 1 month Dec, Active Imitrex 100 MG 1 tablet as needed Orally Twice a day Active Albuterol Sulfate (2.5 MG/3ML) 0.083% 3 ml Inhalation Three times a day as needed for 1 month Active Breo Ellipta 100-25 MCG/INH 1 puff Inhalation Once a day Not-Taking Keppra 500 MG 1 tablet Orally every 12 hrs for 30 days Active Vitamin D (Ergocalciferol) 05948 UNIT 1 capsule Orally weekly fo r 90 days Aug, Active Clindamycin Phosphate 1 % 1 application Externally Twice a day for 30 days Active Alclometasone Dipropionate 0.05 % 1 application Electromechanical Assembly Technician ally Twice a day for TEN DAYS ONLY to dry skin rash on face for 10 days Active Cetirizine HCl 10 mg 1 tablet as needed Orally Once a day for 30 day( s) Active Vitamin B12 100 MCG as directed Orally Active Incruse Ellipta 62.5 MCG/INH 1 puff Inhalation Once a day Active Montelukast Sodium 10 mg 1 tablet Orally at bedtime for 30 day(s) Active Prilosec 20 mg 1 capsule Orally twice daily for 30 day(s) Jan, Active Ibuprofen 600 MG 1 tablet with food or milk a s needed Orally Three times a day for 15 days Active Ciclopirox 1 % 1 application Externally Thr ee times a Week to scalp and sow area for 30 days Active Topamax 200 MG 1 tablet Orally BID for 30 Days Active Doxycycline Monohydrate 100 MG 1 capsule Orally Twice a day for 30 da y(s) Active MiraLax - 1 packet mixed with 8 ounces of fluid Or ally Once a day for 30 day(s) Active Zofran 4 MG 1 tablet Orally Once a day for 30 day(s) Active Pristiq 50 mg 1 tablet Orally Once a day for 30 day(s) Active PROCEDURES No Information RESULTS No Results REASON FOR VISIT ibuprofen MEDICAL (GENERAL) HISTORY Type Description Date Medical [...] Information ASSESSMENTS No Information PLAN OF TREATMENT Medication Medication Name Sig Start Date Stop Date Ibuprofen 600 MG 1 tablet with food or milk a s needed Orally Three times a day for 15 days MiraLax - 1 packet mixed with 8 ounces of fluid Or ally Once a day for 30 day(s) Next Appt Details Provider Name:Dileep Stephen, 2020-09-13 08: 30:00 AM, [address] [place], [address], Provider Name:Miladis Boo, 11:15:00 AM, [address] [facility], [facility], [place], [address], Insurance Providers Payer Name Payer Address Payer Phone Insured Name Patient Relati onship to Insured Coverage Start Date Coverage End Date [facility] [employer] [facility] [address] [facility] [phone] NICK MEEK self
--- OUTSIDE RECORDS SUMMARY | 2020-09-09 16:16 | CCD ---
Author Author [facility] Organization [facility] Address Unknown Phone Unavailable Care Team Providers Care Scrap Preparation Supervisor Name Role Phone Nick De Unavailable PROBLEMS Type Condition ICD9-CM Code VCC17-CC Code Onset Dates Condition S tatus SNOMED Code Notes Problem Learning disability 315.2 Active 385140577 Problem Stricture, ureter 593.3 Active 59062306 Problem Hypertension 401.9 Active 57202740 Problem Obesity 278.00 Active 280904054 Problem Candidal intertrigo 112.3 Active 197405186 Problem Acute renal failure 584.9 Active 148171263238 108 Problem Ivy rash of groin 112.89 Active 98596296 Problem Abscess of groin, right 682.2 Active 22742198 0 Problem Migraines 346.90 Active 81101327 Problem Depression 311 Active 056281195 Problem Asthma 493.90 Active 502974097 Problem Seizure disorder G40.909 Active 791287687 Problem Hematuria 599.70 Active 71297954 Problem Obstructive sleep apnea G47.33 Active 02186440 Problem Seizure disorder 345.90 Active 768076936 Problem BMI 50.0-59.9, adult V85.43 Active 361117281 Problem Gastritis 535.50 Active 8446419 Problem BMI 50.0-59.9, adult Z68.43 Active 988668552 Problem Mild intermittent asthma without complication J45. 20 Active 544222439 ALLERGIES Allergen (clinical drug ingredient) Drug/Non Drug Allergy do cumented on EMR Reaction Allergy Type Onset Date Status naproxen Naprosyn([facility] Code:[address]-28) Nausea/Vomiting Drug Ben rgy Active phenytoin Dilantin Rash Drug Allergy Active amoxicillin Amoxicillin([facility] Code:[address]-04) RASH Drug Aller gy Active codeine Codeine Sulfate([facility] Code:[address]-80) Nausea/Vomiting Dr lovett Allergy Active ENCOUNTERS from 1988 to 2020-08-26 Encounter Location Date Provider Diagnosis [facility] [place] [address] Jul, Nick De Seizure disorder 345.90 ; GERD (gastroes ophageal reflux disease) 530.81 and Cystic acne L70.0 IMMUNIZATIONS Vaccine Route Administration Date Status Influenza [...] 5000 UNIT 2 TABS Orally QWEEK Active Ciclopirox 1 % 1 application Externally Thr ee times a Week to scalp and sow area for 30 days Active Pristiq 50 mg 1 tablet Orally Once a day for 30 day(s) Active Nystatin 965603 UNIT/GM apply Externally groin Twice a day for 1 month Dec, Active Prilosec 20 mg 1 capsule Orally twice daily for 30 day(s) Jan, Active Breo Ellipta 100-25 MCG/INH 1 puff Inhalation Once a day Not-Taking Imitrex 100 MG 1 tablet as needed Orally Twice a day Active Biotin 1000 MCG 1 tablet Orally Once a day for 30 day(s) Active Vitamin B12 100 MCG as directed Orally Active Vitamin D (Ergocalciferol) 33993 UNIT 1 capsule Orally weekly r 90 days Aug, Active Montelukast Sodium 10 mg 1 tablet Orally at bedtime for 30 day(s) Active Doxycycline Monohydrate 100 MG 1 capsule Orally Twice a day for 30 da y(s) Active Clindamycin Phosphate 1 % 1 application Externally Twice a day for 30 days Active MiraLax - 1 packet mixed with 8 ounces of fluid Or ally Once a day for 30 day(s) Active Alclometasone Dipropionate 0.05 % 1 application Hog Confinement System Manager ally Twice a day for TEN DAYS ONLY to dry skin rash on face for 10 days Active Incruse Ellipta 62.5 MCG/INH 1 puff Inhalation Once a day Active Ibuprofen 600 MG 1 tablet with food or milk as needed Ora lly Three times a day Active Carafate 1 GM 1 tablet on an empty stomach Orally twice a day as needed for 30 day(s) November, Active Zofran 4 MG 1 tablet Orally Once a day for 30 day(s) Active Albuterol Sulfate (2.5 MG/3ML) 0.083% 3 ml Inhalation Three times a day as needed for 1 month Active Cetirizine HCl 10 mg 1 tablet as needed Orally Once a day for 30 day( s) Active Topamax 200 MG 1 tablet Orally BID for 30 Days Active Keppra 500 MG 1 tablet Orally every 12 hrs for 30 days Active PROCEDURES No Information RESULTS No Results REASON FOR VISIT out of a lot of meds MEDICAL (GENERAL) HISTORY Type Description Date Medical [...] No Information FUNCTIONAL STATUS No Information ASSESSMENTS Encounter Date Diagnosis Assessment Notes Treatment Notes Treatm ent Clinical Notes Jul, Seizure disorder (ICD9-CM - 345.90) Jul, GERD (gastroesophageal reflux disease) (ICD9-CM - 530.81) Jul, Cystic acne (ICD-10 - L70.0) PLAN OF TREATMENT Medication Medication Name Sig Start Date Stop Date Montelukast Sodium 10 mg 1 tablet Orally at bedtime for 30 day(s ) Cetirizine HCl 10 mg 1 tablet as needed Orally Once a day for 30 day(s) Topamax 200 MG 1 tablet Orally BID for 30 Days Vitamin D (Ergocalciferol) 85272 UNIT 1 capsule Orally weekl y for 90 days Aug, Doxycycline Monohydrate 100 MG 1 capsule Orally Twice a day for 30 day(s) Prilosec 20 mg 1 capsule Orally twice daily for 30 day(s) 2013 Keppra 500 MG 1 tablet Orally every 12 hrs for 30 days Carafate 1 GM 1 tablet on an empty stomach Orally twice a day as needed for 30 day(s) November, Next Appt Details Provider Name:Ryan Dixon, 1 10:00:00 AM, [address] [facility], [place], [address], Provider Name:Miladis Boo, 11:15:00 AM, [address] [facility], [address] [place] [address], [address], Insurance Providers Payer Name Payer Address Payer Phone Insured Name Patient Relati onship to Insured Coverage Start Date Coverage End Date [facility] [address] [facility] [phone] NICK MEEK self
--- OUTSIDE RECORDS SUMMARY | 2020-09-09 16:16 | CCD ---
Author Author [facility] Organization [facility] Address Unknown Phone Unavailable Care Team Providers Care Barmaid Name Role Phone Lily Kaminski Unavailable PROBLEMS Type Condition ICD9-CM Code [id number] Code Onset Dates Condition S tatus W/U Status Risk SNOMED Code Notes Problem Learning disability 315.2 Active confirmed 217683761 Problem Stricture, ureter 593.3 Active confirmed 25 065240 Problem Hypertension 401.9 Active confirmed 6553284 3 Problem Obesity 278.00 Active confirmed 327017633 Problem Candidal intertrigo 112.3 Active confirmed 328886712 Problem Acute renal failure 584.9 Active confirmed 646326650395000 Problem Ivy rash of groin 112.89 Active confirmed 70416100 Problem Abscess of groin, right 682.2 Active confirmed 667858204 Problem Migraines 346.90 Active confirmed 11609255 Problem Depression 311 Active confirmed 589325459 Problem Asthma 493.90 Active confirmed 543429720 Problem Seizure disorder G40.909 Active confirmed 12 7730154 Problem Hematuria 599.70 Active confirmed 77528943 Problem Obstructive sleep apnea G47.33 Active confirmed 93369011 Problem Seizure disorder 345.90 Active confirmed 128 902198 Problem BMI 50.0-59.9, adult V85.43 Active confirmed 778458283 Problem Gastritis 535.50 Active confirmed 8418367 Problem BMI 50.0-59.9, adult Z68.43 Active confirmed 949435785 Problem Mild intermittent asthma without complication J45. 20 Active confirmed 214343218 ALLERGIES Allergen (clinical drug ingredient) Drug/Non Drug Allergy do cumented on EMR Reaction Allergy Type Onset Date Status naproxen Naprosyn([facility] Code:[address]-47) Nausea/Vomiting Drug Ben rgy Active phenytoin Dilantin Rash Drug Allergy Active amoxicillin Amoxicillin([facility] Code:[address]-41) RASH Drug Aller gy Active codeine Codeine Sulfate([facility] Code:[address]-39) Nausea/Vomiting Dr rachell Allergy Active ENCOUNTERS from 1988 to 2020-09-03 Encounter Location Date Provider [place] [facility] [place] [address] [place] [address] Aug, [facility] discharge follow-up Z09 ; Generalized abdominal pain R10.84 ; Elevated liver enzymes R74.8 ; Elevated hematocrit R71.8 and Polypharmacy Z79.899 IMMUNIZATIONS Vaccine Route Administration Date Status Influenza (6mo & up) Fluzone IM Intramuscular May 25, 2013 Ad ministered SOCIAL HISTORY Sex Assigned At : Social History Observation Description Sex Assigned At Unknown REASON FOR REFERRAL No Information VITAL SIGNS Weight 406 lbs Aug, Height 71 in Aug, BMI 56.62 kg/m2 Aug, Heart Rate 112 /min Aug, Respiratory Rate 18 /min Aug, Temperature 96.7 degrees Fahrenheit Aug, Oximetry 97 Aug, Blood pressure systolic 116 mm Hg Aug, Blood pressure diastolic 80 mm Hg Aug, MEDICATIONS Medication SIG (Take, Route, Frequency, Duration) Notes Start Da te End Date Status Ibuprofen 600 MG 1 tablet with food or milk as needed Ora lly Three times a day Active Vitamin D-3 5000 UNIT 2 TABS Orally QWEEK Active Carafate 1 GM 1 tablet on an empty stomach Orally twice a day as needed for 30 day(s) November, Active Nystatin 865649 UNIT/GM apply Externally groin Twice a day for 1 month Dec, Active Vitamin B12 100 MCG as directed Orally Active Albuterol Sulfate (2.5 MG/3ML) 0.083% 3 ml Inhalation Three times a day as needed for 1 month Active Incruse Ellipta 62.5 MCG/INH 1 puff Inhalation Once a day Active Keppra 500 MG 1 tablet Orally every 12 hrs for 30 days Active Clindamycin Phosphate 1 % 1 application Externally Twice a day for 30 days Active Breo Ellipta 100-25 MCG/INH 1 puff Inhalation Once a day Not-Taking Vitamin D (Ergocalciferol) 45735 UNIT 1 capsule Orally weekly fo r 90 days Aug, Active Ciclopirox 1 % 1 application Externally Thr ee times a Week to scalp and sow area for 30 days Active Cetirizine HCl 10 mg 1 tablet as needed Orally Once a day for 30 day( s) Active Zofran 4 MG 1 tablet Orally Once a day for 30 day(s) Active Pristiq 50 mg 1 tablet Orally Once a day for 30 day(s) Active Prilosec 20 mg 1 capsule Orally twice daily for 30 day(s) Jan, Active Imitrex 100 MG 1 tablet as needed Orally Twice a day Active Montelukast Sodium 10 mg 1 tablet Orally at bedtime for 30 day(s) Active Topamax 200 MG 1 tablet Orally BID for 30 Days Active Doxycycline Monohydrate 100 MG 1 capsule Orally Twice a day for 30 da y(s) Active Alclometasone Dipropionate 0.05 % [address] Officer ally Twice a day for TEN DAYS ONLY to dry skin rash on face for 10 days Active MiraLax - 1 packet mixed with 8 ounces of fluid Or ally Once a day for 30 day(s) Active Biotin 1000 MCG 1 tablet Orally Once a day for 30 day(s) Active PROCEDURES No Information RESULTS No Results REASON FOR VISIT [facility] ER Follow up MEDICAL (GENERAL) HISTORY Type Description Date Medical [...] Notes Treatment Notes Treatm ent Clinical Notes Aug, Hospital discharge follow-up (ICD-10 - Z09) See below. Aug, Generalized abdominal pain (ICD-10 - R10.84) CT ABD PELVIS W/O CONTRAST 08/24/2020 7:23 PM FINDINGS: Liver: Unremarkable. Gallbladder and bile ducts: Status post cholecystectomy. No biliary ductal dilatation. Pancreas: Unremarkable. Spleen: Unremarkable. Adrenal glands: Normal. No mass. Kidneys and ureters: 1.9 cm simple left renal cyst (no follow-up is indicated based on the imaging appeara nce). No radiodense calculi. No hydronephrosis. Stomach and bowel: No bowel wall thickening. No obstruction. No pneumatosis. Appendix: Status post appendectomy. Intraperitoneal space: No free fluid. No organized fluid collection. No free air. Vasculature: Unremarkable. No aneurysm. Lymph nodes: No pathologically enlarged lymph nodes. Urinary bladder: Unremarkable as visualized. Reproductive: Unremarkable. Bones/joints: No acute osseous abnormality. Degenerative changes. Soft tissues: Fat containing supraumbilical and paraumbilical hernias. IMPRESSION: 1. No CT evidence of acute intra-abdominal or pelvic pathology. 2. Additional findings, as above. CT was reviewed by myself and was within normal limits, other than simple left renal cyst. No alarming signs. I suggested to the patient that he possibly has gastroenteritis and that he should try eating more bland foods for the next week to see if his pain improves. Should his pain not improve he will call the clinic and let me know. He does already have follow up scheduled with Dr. Dixon on 08/21. Aug, Elevated liver enzymes (ICD-10 - R74.8) ALT found to be elevated at 80 on labs done in ED on 08/30. This is new for him. I will order additional workup at this time, including repeat CMP, iron, ferritin, TIBC, hepatitis profile, lipid panel, anti-mitochondrial and anti- liver/kidney ab. He is not on any medication that would cause transaminitis at this time. He denies any recent or chronic EtOH use. Aug, Elevated hematocrit (ICD-10 - R71.8) Hct found to be 53 on labs on 08/30 in ED. Likely due to his obesity hypoventilation syndrome/RUBINA/dehydration or from noncompliance with CPAP. Will continue to monitor, as this seems to be chronic for him. Aug, Polypharmacy (ICD-10 - Z79.899) Needs to be addressed by patient's PCP at next appointment. PLAN OF TREATMENT Treatment Notes Assessment Notes Clinical Notes Hospital discharge follow-up See below. Generalized abdominal pain CT ABD PELVIS W/O CONTRAST 08/24/2020 7:23 PMFINDINGS: Liver: Unremarkable. Gallbladder and bile ducts: Status post cholecystectomy. No biliary ductal dilatation. Pancreas: Unremarkable. Spleen: Unremarkable. Adrenal glands: Normal. No mass. Kidneys and ureters: 1.9 cm simple left renal cyst (no follow-up is indicated based on the imaging appearance). No radiodense calculi. No hydronephrosis. Stomach and bowel: No bowel wall thickening. No obstruction. No pneumatosis. Appendix: Status post appendectomy. Intraperitoneal space: No free fluid. No organized fluid collection. No free air. Vasculature: Unremarkable. No aneurysm. Lymph nodes: No pathologically enlarged lymph nodes. Urinary bladder: Unremarkable as visualized. Reproductive: Unremarkable. Bones/joints: No acute osseous abnormality. Degenerative changes. Soft tissues: Fat containing supraumbilical and paraumbilical hernias.IMPRESSION: 1. No CT evidence of acute intra-abdominal or pelvic pathology. 2. Additional findings, as above.CT was reviewed by myself and was within normal limits, other than simple left renal cyst. No alarming signs. I suggested to the patient that he possibly has gastroenteritis and that he should try eating more bland foods for the next week to see if his pain improves. Should his pain not improve he will call the clinic and let me know. He does already have follow up scheduled with Dr. Dixon on 08/21. Elevated liver enzymes ALT found to be e levated at 80 on labs done in ED on 08/30. This is new for him. I will order additional workup at this time, including repeat CMP, iron, ferritin, TIBC, hepatitis profile, lipid panel, a nti-mitochondrial and anti-liver/kidney ab. He is not on any medication that would cause transaminitis at this time. He denies any recent or chronic EtOH use. Elevated hematocrit Hct found to be 53 o n labs on 08/30 in ED. Likely due to his obesity hypoventilation syndrome/RUBINA/dehydration or from noncompliance with CPAP. Will continue to monitor, as this seems to be chronic for him. Polypharmacy Needs to be addresse d by patient's PCP at next appointment. Treatment Notes Test Name Order Date Comprehensive Metabolic Profile (CMP) 2020-09-01 IRON (FE) 2020-09-01 FERRITIN 2020-09-01 HEPATITIS PROFILE ACUTE 2020-09-01 LIPID PANEL (CARDIAC RISK) 2020-09-01 LIVER-KIDNEY MICROSOMAL RAIN 2020-09-01 ANTI-MITOCHONDRIAL ANTIBODY 2020-09-01 TOTAL IRON BINDING CAPACIT 2020-09-01 Next Appt Details 08/21 with Abe Dixon Reason:Follow up ab dominal pain, labs Provider Name:Ryan Dixon, 2020 5 02:00:00 PM, [address] [place], [address], Provider Name:Miladis Boo, 11:15:00 AM, [address] [facility], [address], [place], [address], Follow Up:08/21 with Abe DixonFollow up abdominal pain, labs Insurance Providers Payer Name Payer Address Payer Phone Insured Name Patient Relati onship to Insured Coverage Start Date Coverage End Date [facility] [employer] [facility] [address] [facility] [phone] NICK MEEK self
--- OUTSIDE RECORDS SUMMARY | 2020-09-09 16:16 | CCD ---
Author Author [facility] Organization [facility] Address Unknown Phone Unavailable Care Team Providers Care Mergers [employer] Acquisitions Attorney Name Role Phone Nicola Alvarado Unavailable PROBLEMS Type Condition ICD9-CM Code [id number] Code Onset Dates Condition S tatus SNOMED Code Notes Problem Learning disability 315.2 Active 480246826 Problem Stricture, ureter 593.3 Active 92907960 Problem Hypertension 401.9 Active 23107361 Problem Obesity 278.00 Active 774707317 Problem Candidal intertrigo 112.3 Active 705495127 Problem Acute renal failure 584.9 Active 997823191155 108 Problem Ivy rash of groin 112.89 Active 43235710 Problem Abscess of groin, right 682.2 Active 92981920 0 Problem Migraines 346.90 Active 12451621 Problem Depression 311 Active 552518368 Problem Asthma 493.90 Active 391479826 Problem Seizure disorder G40.909 Active 696099815 Problem Hematuria 599.70 Active 29893753 Problem Obstructive sleep apnea G47.33 Active 89382914 Problem Seizure disorder 345.90 Active 919806514 Problem BMI 50.0-59.9, adult V85.43 Active 079935426 Problem Gastritis 535.50 Active 1524016 Problem BMI 50.0-59.9, adult Z68.43 Active 984342374 Problem Mild intermittent asthma without complication J45. 20 Active 453616210 ALLERGIES Allergen (clinical drug ingredient) Drug/Non Drug Allergy do cumented on EMR Reaction Allergy Type Onset Date Status naproxen Naprosyn([facility] Code:[address]-09) Nausea/Vomiting Drug Ben rgy Active phenytoin Dilantin Rash Drug Allergy Active amoxicillin Amoxicillin([facility] Code:[address]-23) RASH Drug Aller gy Active codeine Codeine Sulfate([facility] Code:[address]-64) Nausea/Vomiting Dr lovett Allergy Active ENCOUNTERS from 1988 to 2020-08-23 Encounter Location Date Provider Diagnosis [facility] Resident [address] [facility] [place] [address] Jul, Nicola Christiano Ventral hernia without obstr uction or gangrene K43.9 ; Gastroenteritis K52.9 ; Pharyngitis, unspecified etiology J02.9 and Bilateral inguinal hernia without obstruction or gangrene, recurrence not specified K40.20 IMMUNIZATIONS Vaccine Route Administration Date Status Influenza (6mo & up) Fluzone IM Intramuscular May 25, 2013 Ad ministered SOCIAL HISTORY Sex Assigned At : Social History Observation Description Sex Assigned At Unknown REASON FOR REFERRAL No Information VITAL SIGNS Weight 411 lbs Jul, Height 71 in Jul, BMI 57.32 kg/m2 Jul, Heart Rate 101 /min Jul, Respiratory Rate 18 /min Jul, Temperature 97.1 degrees Fahrenheit Jul, Oximetry 97 Jul, Blood pressure systolic 132 mm Hg Jul, Blood pressure diastolic 86 mm Hg Jul, MEDICATIONS Medication SIG (Take, Route, Frequency, Duration) Notes Start Da te End Date Status Nystatin 101727 UNIT/GM apply Externally groin Twice a day [...] for 30 days Active Vitamin D (Ergocalciferol) 22077 UNIT 1 capsule Orally weekly Aug, Active [...] Active Alclometasone Dipropionate 0.05 % 1 application [employer] ally Twice a day for TEN DAYS ONLY to dry skin rash on face for 10 days Active Vitamin D-3 5000 UNIT 2 TABS Orally QWEEK Active PROCEDURES No Information RESULTS No Results REASON FOR VISIT ED visit 1-13 MEDICAL (GENERAL) HISTORY Type Description Date Medical [...] Treatment Notes Treatm ent Clinical Notes Jul, Ventral hernia without obstruction or gangrene ( ICD-10 - K43.9) Exam findings today are consistent with reducable ventral hernia as identified on CT scan. Treatment options including watchful waiting and surgical intervention discussed. Given patient's level of discomfort we will place a referral for surgical evaluation. Patient does carry history of previous umbilical hernias in 2018 & 2019 repaired at [facility]. Patient requested to be referred to a local surgeon in [place]. Patient is scheduled for F/U appointment with his PCP on 08/28. Will plan to F/U on abdominal symptoms at that time. Jul, Gastroenteritis (ICD-10 - K52.9) Resolved Jul, Pharyngitis, unspecified etiology (ICD-10 - J02. 9) Resolved Jul, Bilateral inguinal hernia wi thout obstruction or gangrene, recurrence not specified (ICD-10 - K40.20) Stable, unchanged, asymptomatic PLAN OF TREATMENT Treatment Notes Assessment Notes Clinical Notes Ventral hernia without obstruction or gangrene Exam findings today are consistent with reducable ventral hernia as identified on CT scan. Treatment options including watchful waiting and surgical intervention discussed. Given patient's level of discomfort we will place a referral for surgical evaluation. Patient does carry history of previous umbilical hernias in 2018 & 2019 repaired at [facility]. Patient requested to be referred to a local surgeon in [place]. Patient is scheduled for F/U appointment with his PCP on 08/28. Will plan to F/U on abdominal symptoms at that time. Gastroenteritis Resolved Pharyngitis, unspecified etiology Resolv ed Bilateral inguinal hernia without obstru ction or gangrene, recurrence not specified Stable, unchanged, asymptoma tic Next Appt Details As scheduled with Dr. Platt on 08/28 Re ason: Provider Name:Ryan Dixon, 1 10:00:00 AM, [address] [place], [address], Provider Name:Miladis Boo, 11:15:00 AM, [address] [facility], [address] [place] [address], [place], [address], Insurance Providers Payer Name Payer Address Payer Phone Insured Name Patient Relati onship to Insured Coverage Start Date Coverage End Date [facility] [address] [facility] [phone] NICK MEEK self
--- OUTSIDE RECORDS SUMMARY | 2020-09-09 16:18 | CCD ---
Author Author [facility] Organization [facility] Address Unknown Phone Unavailable Care Team Providers Care Healthcare Corporate Account Director Name Role Phone Gabriel De La Rosa [...] SOTELO CDN, RD Unavailable BRYON, MEÑO LAVERN EDGE BLACKER-C Unavailable Unavailable BRYON, MEÑO LAVERN EDGE BLACKER-C Unavailable Unavailable BRYON, MEÑO LAVERN EDGE BLACKER-C Unavailable Unavailable BRYON, MEÑO LAVERN EDGE BLACKER-C Unavailable Unavailable BRYON, MEÑO LAVERN EDGE BLACKER-C Unavailable Unavailable BRYON, MEÑO LAVERN EDGE BLACKER-C Unavailable Unavailable BRYON, MEÑO LAVERN EDGE BLACKER-C Unavailable Unavailable BRYON, MEÑO LAVERN EDGE BLACKER-C Unavailable Unavailable BRYON, MEÑO LAVERN EDGE BLACKER-C Unavailable Unavailable BRYON, MEÑO LAVERN EDGE BLACKER-C Unavailable Unavailable BRYON, MEÑO LAVERN EDGE BLACKER-C Unavailable Unavailable BRYON, MEÑO LAVERN EDGE BLACKER-C Unavailable Unavailable BRYON, MEÑO LAVERN EDGE BLACKER-C Unavailable Unavailable BRYON, MEÑO LAVERN EDGE BLACKER-C Unavailable Unavailable BRYON, MEÑO LAVERN EDGE BLACKER-C Unavailable Unavailable BRYON, MEÑO LAVERN EDGE BLACKER-C Unavailable Unavailable VANVALMiroslava DONALDSON MD Unavailable Unavailable VANVALKENBURG, Miroslava ESCUDERO MD [...] Miroslava ESCUDERO MD Unavailable Unavailable VANVALKENBURG, Miroslava ESCDUERO MD Unavailable Unavailable VANVALKENBURG, Miroslava ESCUDERO MD [...] Miroslava ESCUDERO MD Unavailable Unavailable VANVALKENBURG, Miroslava ESUCDERO MD Unavailable Unavailable VANVALKENBURG, Miroslava ESCUDERO MD Unavailable Unavailable VANVALKENBURG, Miroslava ESCUDERO MD Unavailable Unavailable VANVALKENBURG, Miroslava ESCUDERO MD Unavailable Unavailable VANVALKENBURG, Miroslava ESCUDERO MD Unavailable Unavailable VANVALKENBURG, Miroslava ESCUDERO MD Unavailable Unavailable VANVALKENBURG, Miroslava ESCUDERO MD Unavailable Unavailable VANVALKENBURG, Miroslava ESCUDERO MD Unavailable Unavailable DEMARTINI M ADITYA PA Unavailable Unavailable DEMARTINI, M [...] M ADITYA PA Unavailable Unavailable DEMARTINI, M ADIYTA PA Unavailable Unavailable DEMARTINI, M ADITYA PA [...] Unavailable DEMARTINI, M ADITYA PA Unavailable Unavailable OBLionel ZIEGLER MD Unavailable Unavailable OBLionel ZIEGLER MD Unavailable Unavailable OBLionel ZIEGLER MD Unavailable Unavailable OBLionel ZIEGLER MD Unavailable Unavailable OBLionel ZIEGLER MD Unavailable Unavailable OBLionel ZIEGLER MD Unavailable Unavailable OBLionel ZIEGLER MD Unavailable Unavailable OBLionel ZIEGLER MD Unavailable Unavailable OBTONEY, T SALVADOR WAGNER Unavailable Unavailable OBTONEY, Lionel ARANDA MD Unavailable Unavailable OBTONEY, T SALVADOR WAGNER Unavailable Unavailable OBTONEY, Lionel ARANDA MD Unavailable Unavailable OBLionel ZIEGLER MD Unavailable Unavailable OBLionel ZIEGLER MD Unavailable Unavailable OBLionel ZIEGLER MD Unavailable Unavailable OBTONEY T SALVADOR WAGNER Unavailable Unavailable OBTONEY, T SALVADOR WAGNER Unavailable Unavailable OBLionel ZIEGLER MD Unavailable Unavailable OBTONEY, T SALVADOR Unavailable Unavailable OBTONEY, Lionel ARANDA MD Unavailable Unavailable OBLionel ZIEGLER MD Unavailable Unavailable OBTONEY, T SALVADOR WAGNER Unavailable Unavailable OBEN, T SALVADOR MD Unavailable [...] Unavailable OBEN, T SALVADOR MD Unavailable Unavailable HITESH MELGAR MD Unavailable [...] Unavailable Anderson, Angelica Escudero MD Unavailable Unavailable Justin, Angelica Escudero MD Unavailable Unavailable BOONE, Jonathon GRAHAM MD Unavailable Unavailable BOONE, Jonathon HELTONSANTOS MD Unavailable Unavailable BOONE, A SANTOS MD [...] SANTOS MD Unavailable Unavailable BOONE, A SANTOS WAGNER Unavailable Unavailable BOONE, A SANTOS WAGNER Unavailable Unavailable BOONE, A SANTOS MD Unavailable [...] Unavailable Kunnumpurath, F Shannan MD Unavailable Unavailable Caden, F Shannan WAGNER Unavailable Unavailable Caden, F Shannan WAGNER Unavailable Unavailable Caden, F Shannan WAGNER Unavailable Unavailable Caden, F Shannan WAGNER Unavailable Unavailable Caden, F Shannan Unavailable Unavailable Deepa Lance Unavailable Unavailable IDA, A KELLEN DPM Unavailable [...] A KELLEN DPM Unavailable Unavailable Gabriel DAVIS [id number] Unavailable Unavailable OBEN, T SALAVDOR MD Unavailable Unavailable OBEN, T SALVADOR MD [...] Unavailable Unavailable TURRIN, CLEO Unavailable Unavailable HESTERLETITIA MD Unavailable Unavailable HESTERLETITIA [...] Unavailable Unavailable LETITIA HESTER MD Unavailable Unavailable HESTERLETITIA COPELAND MD Unavailable Unavailable HESTERLETITIA COPELAND MD Unavailable Unavailable HESTERLETITIA COPELAND MD Unavailable Unavailable LETITIA HESTER MD Unavailable Unavailable HESTERLETITIA COPELAND MD Unavailable Unavailable LETITIA HESTER MD Unavailable Unavailable HESTERLETITIA COPELAND MD Unavailable Unavailable LETITIA HESTER MD Unavailable Unavailable HESTERLETITIA COPELAND MD Unavailable Unavailable HESTERLETITIA COPELAND MD Unavailable Unavailable LETITIA HESTER MD Unavailable [...] MD Unavailable Unavailable MADISON PEPE Unavailable Unavailable Nieves TAMAYO MD Unavailable Unavailable [...] Unavailable Unavailable Nieves TAMAYO MD Unavailable Unavailable BELKIS J ROBERT WAGNER Unavailable Unavailable Nieves TAMAYO MD Unavailable Unavailable Nieves TAMAYO MD Unavailable Unavailable Nieves TAMAYO MD Unavailable Unavailable Nieves TAMAYO MD Unavailable Unavailable Nieves TAMAYO MD Unavailable Unavailable Nieves TAMAYO MD Unavailable Unavailable Nieves TAMAYO MD Unavailable Unavailable Nieves TAMAYO MD Unavailable Unavailable Nieves TAMAYO MD Unavailable Unavailable Nieves TAMAYO MD Unavailable Unavailable Nieves TAMAYO MD Unavailable Unavailable Los MORSE MD Unavailable [...] MD Unavailable Unavailable NO, PCP Unavailable Unavailable BartTherese magallon MS, RPA-C Unavailable Unav ailable Bartoszewski, Therese [...] Therese Carmen MS, RPA-C Unavailable Unav ailable Therese Biswas MS, RPA-C Unavailable Unav ailable Therese Biswas MS, RPA-C Unavailable Unav ailable Re-disclosure Warning [...] is protected by Article 27-F of the [facility] Public Health law. If you continue you may have access to information: Regarding HIV / AIDS; Provided by facilities licensed or operated by the [facility] Office of Mental Health; or Provided by the [facility] Office for People With Developmental Disabilities. If such information is present, then the following [facility] mandated warning applies: This information has [...] law may result in a fine or half-way sentence or both. A general authorization for the release of medical or other information is NOT sufficient authorization for further disc losure. Allergies and Adverse Reactions Type Description Substance Reaction Status Data Source(s ) No Known Food Allergies No Known Food Allergies [facility] BRANDNAME DILANTIN DILANTIN [facility] Drug allergy CODEINE CODEINE [facility] Drug allergy NAPROXEN NAPROXEN [facility] Family History Family Member Name Family Member Gender Family Member Status Date o f Status Description Data Source(s) Unknown Condition [facility] Unknown Condition [facility] Condition [facility] Encounters Encounter Providers Location Date Indications Data Source(s ) Outpatient Attender: SANTOS SHOOK MD 11/28/2020 12:00:0 0 AM [facility] Unknown [address] [facility] [id number] 09/07/2020 12:00:00 AM EST [facility]CW[facility] Outpatient [address] [facility] [id number] 09/01/2020 12:00:00 AM EST [facility] Unknown [address] [facility] [id number] 08/28/2020 12:00:00 AM EST [facility] Unknown [address] [facility] [id number] 08/25/2020 12:00:00 AM EST [facility]) Outpatient Attender: LAVERN Lu/Yonathan/Chucho/Nik segovia 08/17/2020 12:15:00 PM EST [facility] ([facility] Unknown [address] [facility] [id number] 08/15/2020 12:00:00 AM EST eCW1 ([facility]) Outpatient [address] [facility] [id number] 08/11/2020 12:00:00 AM EST [facility]CW1 [facility]) Unknown [address] [facility] [id number] 08/10/2020 12:00:00 AM EST [facility]CW1 ([facility]) Outpatient Attender: MADISON PEPE 07/17/2020 12:00:00 [facility] Outpatient Attender: KOTA SIERRA MD [id number] 06/28/2020 12:00:00 AM EST Primary osteoarthritis, right ankle and foot [facility] Primary osteoarthritis, right ankle and foot Outpatient Attender: MADISON PEPE 06/26/2020 12:00:00 [facility] Outpatient [address] [facility] [address] 06/12/2020 12:00:00 AM EST [facility]CW[facility] Outpatient Attender: SANTOS SHOOK MD [id number] 04/2020 12:00:00 AM EST - 06/06/2020 02:43:30 PM EST Post-traumatic bulbous urethral stricture [facility] Post-traumatic bulbous urethral strictur e Outpatient Attender: MADISON PEPE 06/05/2020 12:00:00 [facility] Outpatient Attender: Shannan Negrete MDConsultant: LETITIA HESTER MD 06/01/2020 01:00:00 PM [facility] - 06/01/2020 01:00:00 PM [facility] Outpatient Attender: MADISON PEPE 05/24/2020 12:00:00 A M [facility] Unknown [address] [facility] [address] 05/22/2020 12:00:00 AM EDT [facility]CW1 ([facility] Unknown [address] [facility] [address] 05/22/2020 12:00:00 AM EDT eCW1 ([facility] [place] [address] [facility] [place] [address] 05/18/2020 12:00:00 AM EDT eCW1 ([facility] Outpatient [address] [facility] [address] 05/15/2020 12:00:00 AM EDT eCW1 ([facility]) Outpatient Attender: SANTOS SHOOK MD [id number] 12:00:00 AM EDT - 05/09/2020 02:16:06 PM [facility] Outpatient Referrer: ADITYA TANG 04/26/2020 12:00:00 AM EDT Primary osteoarthritis, right ankle and foot [facility] Primary osteoarthritis, right ankle and foot Outpatient Referrer: ADITYA TANG 04/26/2020 12:00:00 AM EDT Primary osteoarthritis, right ankle and foot [facility] Primary osteoarthritis, right ankle and foot Outpatient Attender: ADITYA TANG [id number] 04/26/2020 12:00:00 AM EDT Primary osteoarthritis, right ankle and foot [facility] Primary osteoarthritis, right ankle and foot Outpatient Attender: Shannan Negrete MDConsultant: LETITIA HESTER MD 04/20/2020 02:36:00 PM EDT - 04/20/2020 02:36:00 PM EDT [facility] Outpatient Attender: LETITIA HESTER MDConsultant: LETITIA Madison MD 04/05/2020 10:11:00 AM EDT - 04/05/2020 10:11:00 AM [facility] Outpatient Attender: SERAFIN GEORGES MDConsultant: LETITIA Madison MD 03/29/2020 01:51:00 PM EDT - 03/29/2020 01:51:00 PM [facility] Outpatient Attender: LETITIA HESTER MDConsultant: LETITIA Madison MD 03/27/2020 12:49:00 PM EDT - 03/27/2020 12:49:00 PM [facility] Outpatient Attender: KOTA SIERRA MD 03/24/2020 12: 00:00 AM [facility] Emergency Attender: CLEO GRUBERConsultant: LETITIA Madison MD 03/22/2020 03:26:00 PM EDT - 03/22/2020 05:25:00 PM [facility] Patient discharged. Outpatient Attender: ALTAGRACIA DAVIS [id number]: LETITIA HANSEN MD 03/20/2020 12:00:00 AM [facility] Outpatient Attender: KOTA SIERRA MD 03/15/2020 12: 00:00 AM [facility] Emergency Attender: HITESH MELGAR MDConsultant: LETITIA HESTER MD 03/09/2020 05:46:00 PM EDT - 03/10/2020 12:45:00 AM [facility] Patient discharged. Outpatient Attender: LETITIA HESTER MD Family Practice 02/23/2020 1 1:00:00 AM EDT [facility] Out[facility] Attender: LETITIA HESTER MDConsultant: LETITIA Madison MD 02/23/2020 10:36:00 AM EDT - 02/23/2020 10:36:00 AM EDT [facility] Outpatient Attender: ROBERT TAMAYO MDReferrer: ROBERT TAMAYO MD MOB-MOB.PAT 02/04/2020 10:47:57 AM EDT - 02/04/2020 11:35:59 AM EDT [facility] Outpatient Attender: ROBERT TAMAYO MDReferrer: ROBERT TAMAYO MD MOB-MOB.PAT 02/04/2020 10:12:45 AM EDT - 02/04/2020 10:12:49 AM EDT [facility] SDC Attender: ROBERT TAMAYO MDAdmitter: ROBERT TAMAYO MD ES1-OR 02/02/2020 10:39:51 AM EDT - 02/09/2020 05:00:00 PM EDT [facility] Patient discharged. Outpatient Referrer: ROBERT TAMAYO MD 01/31/2020 01:06:48 P M EDT [facility] Emergency Attender: MILAGROS MORSE MDConsultant: LETITIA Madison MD 01/27/2020 11:08:00 AM EDT - 01/27/2020 01:46:00 PM EDT [facility] Patient discharged. Outpatient Attender: Lance De La Rosa MD Main Office 01/18/2020 02:15:00 PM EDT [facility] ([facility]) Outpatient Attender: LETITIA HESTER MDConsultant: LETITIA Madison MD 01/17/2020 09:33:00 AM EDT - 01/17/2020 10:33:00 AM EDT [facility] Emergency Attender: MILAGROS MORSE MDConsultant: LETITIA Madison MD 01/13/2020 01:42:00 PM EDT - 01/13/2020 05:54:00 PM EDT [facility] Patient discharged. Outpatient Attender: LETITIA HESTER MD Family Practice 01/12/2020 0 1:20:00 PM EDT [facility] Outpatient Attender: LETITIA HESTER MDConsultant: LETITIA Madison MD 01/12/2020 12:32:00 PM EDT - 01/12/2020 12:32:00 PM EDT [facility] Outpatient Attender: SALVADOR KAMARA MDConsultant: LETITIA HESTER MD 12/31/2019 08:45:00 AM EDT - 12/31/2019 11:35:00 AM EDT [facility] Patient discharged. Outpatient Attender: Carmen Biswas MS, RPA-CConsultan t: LETITIA HESTER MD 12/28/2019 09:05:00 AM EDT - 12/28/2019 09:15:00 AM EDT [facility] Patient discharged. Outpatient Attender: SALVADOR KAMARA MDConsultant: LETITIA HESTER MD 12/15/2019 11:32:18 AM EDT [facility] Outpatient Attender: ALESSIO SOTELO CDN, RDConsultant: LETITIA HESTER MD 12/14/2019 12:59:00 PM EDT - 12/14/2019 12:59:00 PM EDT [facility] Outpatient Attender: SALVADOR KAMARA MDConsultant: LETITIA HESTER MD 12/13/2019 02:57:37 PM EDT - 12/14/2019 12:20:00 PM EDT [facility] Patient discharged. Outpatient Attender: LETITIA HESTER MDConsultant: LETITIA Madison MD 11/29/2019 10:16:00 AM EDT - 12/16/2019 08:54:00 AM EDT [facility] Patient discharged. Outpatient Attender: LETITIA HESTER MDConsultant: LETITIA Madison MD 11/25/2019 12:56:00 PM EDT - 11/25/2019 12:56:00 PM EDT [facility] Outpatient Attender: SALVADOR KAMARA MDConsultant: LETITIA HESTER MD 11/23/2019 11:13:00 AM EDT - 11/23/2019 11:13:00 AM EDT [facility] Outpatient Attender: SALVADOR KAMARA MD Family Practice 11/23/2019 08:15:0 0 AM EDT [facility] ([facility]) Outpatient Attender: LETITIA HESTER MDConsultant: LETITIA Madison MD 11/19/2019 10:35:00 AM EDT - 11/19/2019 11:36:00 AM EDT [facility] Outpatient Attender: LETITIA HESTER MD Family Practice 11/18/2019 0 3:00:00 PM EDT [facility] ([facility]) Outpatient Attender: LETITIA HESTER MDConsultant: PCP NO 11/18/2019 02:08:00 PM EDT - 11/18/2019 02:08:00 PM EDT [facility] Emergency Attender: YI CASSIDY MDConsultant: PCP NO 10/21/2019 03:31:00 PM EDT - 10/21/2019 05:41:00 PM EDT [facility] Patient discharged. Outpatient Attender: KOTA SIERRA MD 10/15/2019 12: 00:00 AM [facility] OutpatientEST-LEVEL 4 Attender: KELLEN PRIETO [facility] Podiatr y 10/06/2019 02:30:00 PM EDT - 10/06/2019 02:30:00 PM EDT Nail dystrophyUnspecified osteoarthritis, unspecified site [facility] ([facility]) Nail dystrophy Unspecified osteoarthritis, unspecified site Outpatient Attender: Kota Cristina: Kota Anderson MD 09/14/2019 03:48:00 PM EST - 09/14/2019 04:28:00 PM EST [facility] Outpatient Attender: Lance Bryanterrlilia: Kota collins MD 08/12/2019 01:49:00 PM [facility] Immunizations Vaccine Date Status Description Data Source(s) This CVX code allows reporting of a vacc ination when formulation is unknown (for example, when recording a Influenza vaccination when noted on a vaccination card) 07/19/2019 12:00:00 AM EST completed influenza, injectable , [facility] This CVX code allows reporting of a vacc ination when formulation is unknown (for example, when recording a Influenza vaccination when noted on a vaccination card) 07/19/2019 12:00:00 AM EST completed influenza, injectable , [facility] Medications Medication Brand Name Start Date Product Form Dose Route Admi nistrative Instructions Pharmacy Instructions Status Indications Reaction Description Data Source(s) [facility]. Devices (DURABLE MEDICAL EQUIPMENT SEE SIG) XX [facility] 97 [id number] 06/28/2020 12:00:00 AM EST active Use as directed. Roll A Bout Knee Scooter Dx: [facility] Clindamycin 0.01 MG/MG Topical Gel Clindamycin Phospha te 1 % Clindamycin Phosphate 1 % 06/12/2020 12:00:00 AM EST 1.0 {application} active Clindamycin Phosphate 1 % eCW1 ([facility]) lidocaine (XYLOCAINE) 2 % urojet 20 mL [address]-6 0 01:30:00 PM EST 20 mL Urethral completed 20 mL, Urethr al, Once, 06/06/20 at 1330, For [address] [facility] Medication administered onsite Cephalexin 500 MG Oral Capsule cephALEXin (KEFLEX) cap gt 500 mg cephALEXin (KEFLEX) capsule 500 mg 06/06/2020 01:30:00 PM EST 500 mg Oral completed 500 mg, Oral, Once, 06/06/20 at 1330 , For [address] [facility] Medication administered onsite alclometasone dipropionate 0.5 MG/ML Top ical Cream Alclometasone Dipropionate 0.05 % Alclometasone Dipropionate 0.05 % 05/15/2020 12:00:00 AM EDT 1.0 {application} active Alclometasone Dipr opionate 0.05 % eCW1 ([facility]) ciclopirox 10 MG/ML Medicated Shampoo Ciclopirox 1 % Ciclopi oneil 1 % 05/15/2020 12:00:00 AM EDT 1.0 {application} active Ciclopirox 1 % eCW1 ([facility]) ciclopirox 10 MG/ML Medicated Shampoo Ciclopirox 1 % Ciclopi oneil 1 % 05/15/2020 12:00:00 AM EDT 1.0 {application} active Ciclopirox 1 % eCW1 ([facility]) Doxycycline Monohydrate 50 MG Oral Capsule Doxycycline Monoh ydrate 50 MG 05/15/2020 12:00:00 AM EDT 1.0 {capsule} active Doxycycline Monohydrate 50 MG eCW1 ([facility]) alclometasone dipropionate 0.5 MG/ML Top ical Cream Alclometasone Dipropionate 0.05 % Alclometasone Dipropionate 0.05 % 05/15/2020 12:00:00 AM EDT 1.0 {application} active Alclometasone Dipr opionate 0.05 % eCW1 ([facility]) Doxycycline Monohydrate 50 MG Oral Capsule Doxycycline Monoh ydrate 50 MG 05/15/2020 12:00:00 AM EDT 1.0 {capsule} active Doxycycline Monohydrate 50 MG eCW1 ([facility]) alclometasone dipropionate 0.5 MG/ML Top ical Cream Alclometasone Dipropionate 0.05 % Alclometasone Dipropionate 0.05 % 05/15/2020 12:00:00 AM EDT 1.0 {application} active Alclometasone Dipr opionate 0.05 % eCW1 ([facility]) ciclopirox 10 MG/ML Medicated Shampoo Ciclopirox 1 % Ciclopi oneil 1 % 05/15/2020 12:00:00 AM EDT 1.0 {application} active Ciclopirox 1 % eCW1 ([facility]) alclometasone dipropionate 0.5 MG/ML Top ical Cream Alclometasone Dipropionate 0.05 % Alclometasone Dipropionate 0.05 % 05/15/2020 12:00:00 AM EDT 1.0 {application} active Alclometasone Dipr opionate 0.05 % eCW1 ([facility]) ciclopirox 10 MG/ML Medicated Shampoo Ciclopirox 1 % Ciclopi oneil 1 % 05/15/2020 12:00:00 AM EDT 1.0 {application} active Ciclopirox 1 % eCW1 ([facility]) Doxycycline Monohydrate 50 MG Oral Capsule Doxycycline Monoh ydrate 50 MG 05/15/2020 12:00:00 AM EDT 1.0 {capsule} active Doxycycline Monohydrate 50 MG eCW1 ([facility]) Doxycycline Monohydrate 50 MG Oral Capsule Doxycycline Monoh ydrate 50 MG 05/15/2020 12:00:00 AM EDT 1.0 {capsule} active Doxycycline Monohydrate 50 MG eCW1 ([facility]) Docusate Sodium 100 MG Oral Capsule [DOK] DOK 100 MG O ral Capsule DOK 100 MG Oral Capsule 04/07/2020 12:00:00 AM EDT 100 mg Oral activ e Take 100 [address] [facility] Desvenlafaxine Succinate ER 100 MG Oral Tablet Extended Release 24 Hour (PRISTIQ) 4012-0326-34 04/07/2020 12:00:00 AM EDT Oral active Take by mouth daily [facility] Nystatin 100 UNT/MG Topical Powder Nysta tin [id number] UNIT/GM External Powder (MYCOSTATIN) Nystatin [id number] UNIT/GM External Powder (MYCOSTATIN) 0 03/27/2020 12:00:00 AM EDT active APPLY TO AFFECTED AREA S TWO TIMES A DAY ABDOMINAL FOLDS [facility] heparin (porcine) injection 5,000 Units 71460-478-95 02/09/20 05:00:00 PM EDT 5000 U Subcutaneous active 5,000 Units , Subcutaneous, Every 8 hours (scheduled), First dose on Fri02/09/20 at 1700, Post-op
If platelet count is less than 100,000 or hematocrit is less than 25, or if there is a 5 point decrea se in hematocrit, do not give the dose and call physician/designee.
[facility] Medication administered onsite dextrose 5 % and sodium chloride 0.9 % infusion 1804-9129-30 02/09/2020 05:00:00 PM EDT Intravenous active at 1 00 mL/hr, Intravenous, Continuous, Starting Fri02/09/20 at 1700, Post-op
Hep lock with good PO
[facility] Medication administered onsite Oxycodone Hydrochloride 5 MG Oral Tablet oxyCODONE (ROXICODONE) immediate release tablet 5 mg oxyCODONE (ROXICODONE) immediate release tablet 5 mg 02/09/2020 04:27:42 PM EDT 5 mg Oral active 5 mg, Oral, Every 4 hours PRN, moderate pain (4-6), Starting Fri02/09/20 at 1627, For 7 days, Post-op [facility] Medication administered onsite ondansetron (ZOFRAN) injection 4 mg 21235-228-76 02/09/2020 04:27:4 2 PM EDT 4 mg Intravenous active 4 mg, In travenous, Every 6 hours PRN, nausea, vomiting, Starting Fri02/09/20 at 1627, Post-op [facility] Medication administered onsite Magnesium Chloride 0.27029 MEQ/ML / Pota ssium Chloride 0.0497 MEQ/ML / Sodium Acetate 0.0163 MEQ/ML / Sodium Chloride 0.0899 MEQ/ML / Sodium gluconate 5.02 MG/ML Injectable Solution [Normosol-R] electrolyte-R (NORMOSOL-R/PLASMALYTE-R) solution electrolyte-R (NORMOSOL-R/PLASMALYTE-R) solution 02/08 04:00:00 PM EDT Intravenous active at 1 00 mL/hr, Intravenous, Continuous, Starting Fri02/09/20 at 1600, PACU & Post-op [facility] Medication administered onsite normal saline flush 0.9 % injection 3 mL 10374-340-82 02/09/2020 04:00:00 PM EDT 3 mL Intravenous active 3 mL , Intravenous, Every 8 hours (scheduled), First dose on Fri02/09/20 at 1600, PACU (only)
flush per protocol, D/C Main IV fluid if appropriate
[facility] Medication administered onsite 10 ML Atropine Sulfate [...] or 0.04 mg/kg. Max of 6 doses
[facility] Medication administered onsite fentaNYL Citrate (PF) (SUBLIMAZE) injection 25 mcg [id number] 02/09/2020 02:45:03 PM EDT 25 ug Intravenous completed 25 mcg, Intravenous, Every 5 min PRN, moderate pain (4-6), Starting Fri02/09/20 at 1445, For 4 doses, PACU (only) [facility] Medication administered onsite normal saline flush 0.9 % injection 3 mL [id number] 02/09/2020 02:00:00 PM EDT 3 mL Intravenous active 3 mL , Intravenous, Every 8 hours (scheduled), First dose on Fri02/09/20 at 1400, Pre-op
Rapid push positive pressure flushing shall be performed with a 10 cc normal saline syringe to check the PATENCY of a PIV site prior to any infusion therapy initiation unless resistance is met.
[facility] Medication administered onsite Oxycodone Hydrochloride 5 MG Oral Tablet oxyCODONE (ROXICODONE) 5 MG immediate release tablet oxyCODONE (ROXICODONE) 5 MG immediate release tablet 0 02/09/2020 12:00:00 AM EDT 5 mg Oral active Take 1 tablet (5 mg total) by mouth every 6 (six) hours as needed for pain Max Daily Amount: 20 mg [facility] Levetiracetam 500 MG Oral Tablet [Keppra] Keppra 01/20/2020 12:00 :00 AM EDT ORAL active [facility] ([facility]) montelukast 10 MG Oral Tablet Montelukast Sodium 11/22/2019 12:00:00 AM EDT ORAL active [facility] ([facility]) Docusate Sodium 100 MG Oral Capsule [Colace] Colace 12:00:00 AM EDT ORAL active [facility]) 750 mg 09/14/2019 12:00:00 AM EST tablet 60 TAKE ONE TABLET BY MOUTH FOUR TIMES A DAY NEEDED FOR SPASMS MAXIMUM DAILY DOSE = FOUR TABLETS USE SPARINGLY AND ONLY NEEDED FOR PAIN TAKE ONE TABLET BY MOUTH FOUR TIMES A DAY NEEDED FOR SPASMS MAXIMUM DAILY DOSE = FOUR TABLETS USE SPARINGLY AND ONLY NEEDED FOR PAIN SOLD: 09/14/2019 [facility] Mirtazapine 15 MG Oral Tablet Mirtazapine 08/30/2019 09:14:43 AM EST 15 MG active [facility] Methocarbamol 750 MG Oral Tablet Methocarbamol 08/30/2019 09:12:29 AM EST 750 MG active [facility] 750 mg 08/30/2019 12:00:00 AM EST tablet 60 TAKE ONE TABLET BY MOUTH FOUR TIMES A DAY TAKE ONE TABLET BY MOUTH FOUR TIMES A DAY SOLD: 08/30/2019 [facility] 15 mg 08/30/2019 12:00:00 AM EST tablet 30 TAKE ONE TABLET BY MOUTH EVERY DAY TAKE ONE TABLET BY MOUTH EVERY DAY SOLD: 08/30/2019 [facility] Doxycycline Monohydrate 50 MG Oral Capsule Doxycycline Monoh ydrate 08/19/2019 09:11:55 AM EST 50 MG active [facility] cetirizine hydrochloride 10 MG Oral Capsule Cetirizine Cetir izine 08/19/2019 09:11:50 AM EST 10 MG active [facility] 10 mg 08/19/2019 12:00:00 AM EST [...] WEAR SUN PROTECTION DURING TREATMENT SOLD: 08/18/2019 [facility] topiramate 200 MG Oral Tablet TOPIRAMATE 08/01/2019 [...] 020 02:39:04 PM EST 200 MG active [facility] 750 mg 07/18/2019 12:00:00 AM EST tablet 60 TAKE ONE TABLET BY MOUTH FOUR TIMES A DAY TAKE ONE TABLET BY MOUTH FOUR TIMES A DAY SOLD: 08/11/2019 [facility] 750 mg 07/18/2019 12:00:00 AM EST tablet 60 TAKE ONE TABLET BY MOUTH FOUR TIMES A DAY TAKE ONE TABLET BY MOUTH FOUR TIMES A DAY SOLD: 07/18/2019 [facility] Methocarbamol 750 MG Oral Tablet Methocarbamol 07/13/2019 03:23:25 PM EST 750 MG [facility] Methocarbamol 750 MG Oral Tablet Methocarbamol 07/05/2019 04:44:44 PM EST 750 MG [facility] 100 mg 06/04/2019 12:00:00 AM EST [...] MOUTH AT BEDTIME SOLD: 2019 [facility] Mirtazapine 15 MG Oral Tablet Mirtazapine 06/01/2019 02:30:05 PM EST 15 MG [facility] 15 mg 06/01/2019 12:00:00 AM EST tablet 30 TAKE ONE TABLET BY MOUTH EVERY DAY TAKE ONE TABLET BY MOUTH EVERY DAY SOLD: 07/26/2019 [facility] Methylprednisolone Methylprednisolone 05/31/2019 06:14:06 PM EST 0 completed [facility] cetirizine hydrochloride 10 MG Oral Capsule Cetirizine Cetir izine 05/17/2019 09:13:30 AM EDT 10 MG [facility] Doxycycline Monohydrate 50 MG Oral Capsule Doxycycline Monoh ydrate 05/17/2019 09:13:09 AM EDT 50 MG completed [facility] 600 mg 05/17/2019 12:00:00 AM EDT tablet [...] NE EDED FOR ALLERGY SYMPTOMS SOLD: 07/18/2019 [facility] 50 mg 05/17/2019 12:00:00 AM EDT [...] Drug s topiramate 200 MG Oral Tablet Topiramate Topiramate 019 12:59:00 PM EDT 200 MG completed [facility]. Devices (DURABLE MEDICAL EQUIPMENT SEE SIG) [facility] [place] [facility] [id number] 10/09/2018 12:00:00 AM EDT aborted Use as directed. Rolling walker with seat Dx: Right ankle arthritis [facility] gabapentin 100 MG Oral Capsule gabapentin (NEURONTIN) 100 MG capsule gabapentin (NEURONTIN) 100 MG capsule 03/03/2018 12:00:00 AM EDT 100 mg Oral aborted Take 100 mg by mouth Daily [facility] maalox/lidocaine/diphenhydrAMINE (RADIATION MIXTURE) 1:1:1 o ral suspension 05/29/2017 12:00:00 AM EDT 10 mL Swish & Spit aborted Swish and spit 10 mLs every 2 (two) hours as needed (For Mouth Pain)Pharmacy compound: Maalox, lidocaine viscous 2 %, Benadryl 12.5 mg/[address] [facility] PARoxetine (PAXIL) 30 MG tablet [id number] 30 mg Oral aborted Take 30 mg by mouth every morning [facility] Melatonin 3 MG Oral Tablet melatonin 3 MG tablet melatonin 3 MG table t 5 mg Oral aborted Take 5 mg by m outh nightly Indications: Pt takes two tabs nightly [facility] doxycycline hyclate 50 MG Oral Capsule doxycycline ( BRAMYCIN) 50 MG capsule doxycycline (VIBRAMYCIN) 50 MG capsule 100 mg Oral aborted Take 100 mg by mouth every morning [facility] Insurance Providers Payer name Policy type / Coverage type Policy ID Covered alliance party ID Covered alliance party's relationship to de la rosa Policy [place] Plan Information UNHC COMMUNITY PLAN MCDHMO [id number] SP [id number] UNHC COMMUNITY PLAN MCDHMO [id number] SP [id number] UNHC COMMUNITY PLAN MCDHMO [id number] SP [id number] UHC I [id number] Self [id number] [facility](MCAID) P [id number] S [id number] UHC COMMUNTY PLAN [id number] 18 [id number] UNHC COMMUNITY PLAN XIX [id number] 18 [id number] UNHC COMMUNITY PLAN MCDHMO [id number] SP [id number] [facility] MEDICAID [id number] [facility] MEDICAID [id number] Sepideh [id number] INSURANCE COVID-19 COVID Sepideh C OVID INSURANCE COVID-19 [id number] BLUE CROSS BLUE SHIELD-O/P [id number] UNHC COMMUNITY PLAN XIX -RECURRING [id number] 18 [id number] [facility] Community Plan [id number] STPP Wrap [id number] UnitedHealth[employer] Other 0 Self 0 [employer]Health[employer] Other 0 Self 0 [employer]Health[employer] Other 0 Self 0 [facility] MEDICAID PI PI MEDICAID [id number] Sepideh [id number] [employer] Other 0 Self 0 [employer]Health[employer] Other 0 Self 0 [employer]Health[employer] Other 0 Self 0 [place] Medig[place] Part [place] [id number] Self [id number] Hmo Blue Option/Medicaid Health Maintenance Organization (HMO) [id number] Self [id number] [facility] Health Maintenance Organization (HMO) [id number] Self [id number] [place] Med[place] [id number] Self [id number] Hmo Blue Option/Medicaid Health Maintenance Organization (HMO) [id number] Self [id number] Medicaid Medicaid [id number] Self [id number] Uhc-Community Plan Commercial [id number] Self [id number] [place] [id number] Family Dependent [id number] Uhc Community Plan Commercial [id number] Self [id number] United[employer] Other 0 Self 0 UNHC COMMUNITY PLAN MCDO [id number] SP [id number] [place] Med[place] [id number] Self [id number] Hmo Blue Option/Medicaid Health Maintenance Organization (HMO) [id number] Self [id number] [facility] Health Maintenance Organization (HMO) [id number] Self [id number] Community Plan - [facility] Commercial [id number] Self [id number] Community Plan - [facility] Commercial [id number] Self [id number] [facility] Other 0 Self 0 Medicaid [id number] Community Plan - [facility] Commercial [id number] Self [id number] [facility] [id number] Community Plan - [facility] Commercial Self [facility] Medigap Part B Self [place] Medigap Part B Self Hmo Blue Option/Medicaid Health Maintenance Organization (HMO) Self [facility] [id number] UHC PLUS PAUL COMMUNITY PLAN [id number] SELF [id number] [employer] PAUL [id number] SELF [id number] [facility] [id number] Patient [id number] [facility] [id number] Patient [id number] SELF PAY UNAVAILABLE SELF UNAVAILA BLE Medicaid Medicaid Self Uhc-Community Plan Commercial Self MEDICAID M [id number] Self [id number] [facility](MCAID) P [id number] S [id number] [facility](MCAID) P [id number] S [id number] [facility] MEDICAID 7 [id number] 1 [id number] SELFPAY 5 UNAVAILABLE 1 UNAVAILA BLE MEDICAID 3 [id number] BLUE CHOICE OPTIONS 7 [id number] MEDICAID W [id number] S [id number] BLUE CHOICE OPTION O [id number] S [id number] BLUE CROSS [place] PLAN [id number] SP [id number] BLUE CROSS [place] PLAN [id number] SP [id number] MEDICAID [id number] SP [id number] HMO BLUE [id number] UNAVAILABLE UNAVAILA BLE Problems, Conditions, and Diagnoses Code Display Name Description Problem Type Effective Dates Data Source(s) 73020648 Essential hypertension Essential hypertension Problem 08/23/2020 12:00:00 AM EST [facility] ([facility] ) J45.20 [id number] Mild intermittent asthma without complica tion Problem 08/03/2020 12:00:00 AM EST eCW1 ([facility]) Z68.43 [id number] BMI 50.0-59.9, adult Problem 08/03/2020 12:0 0:00 AM EST eCW1 ([facility]) G47.33 [id number] Obstructive sleep apnea Problem 08/03/2020 1 2:00:00 AM EST eCW1 ([facility]) G40.909 [id number] Seizure disorder Problem 08/03/2020 12:00:00 AM EST eCW1 ([facility]) 81959047 Abdominal pain Abdominal pain Problem 01/18/2020 12:00: 00 AM EDT [facility] ([facility]) [id number] Essential hypertension Essential hypertension Problem 11/18/2019 12:00:00 AM EDT [facility] ([facility]) S92.101S Unspecified fracture of right talus, seq uela Unspecified fracture of right talus, sequela Diagnosis 06/28/2020 07:03:06 AM [facility] M19.071 Primary osteoarthritis, right ankle and foot Primary osteoarthritis, right ankle and foot Diagnosis 06/28/2020 07:03:06 AM [facility] B27908 Encounter for other preprocedural examin ation Encounter for other preprocedural examination Diagnosis 04/20/2020 02:36:00 PM EDT [facility] H6123 Impacted cerumen, bilateral Impacted cerumen, bilatera l Diagnosis 04/05/2020 10:11:00 AM EDT [facility] R1033 Periumbilical pain Periumbilical pain Diagnosis 08/2019 01:51:00 PM EDT [facility] H6122 Impacted cerumen, left ear Impacted cerumen, left ear Diagnosis 03/27/2020 12:49:00 PM EDT [facility] Z6843 Body mass index (BMI) 50.0-59.9, adult B santos mass index (BMI) 50.0-59.9, adult Diagnosis 03/27/2020 12:49:00 PM EDT [facility] E669 Obesity, unspecified Obesity, unspecified Diagnosis 03/27/2020 12:49:00 PM EDT [facility] R569 Unspecified convulsions Unspecified convulsions Diagno sis 03/27/2020 12:49:00 PM EDT [facility] B372 Candidiasis of skin and nail Candidiasis of skin and n ail Diagnosis 03/27/2020 12:49:00 PM EDT [facility] R1030 Lower abdominal pain, unspecified Lower abdomina l pain, unspecified Diagnosis 03/27/2020 12:49:00 PM EDT [facility] [id number] Unspecified asthma, uncomplicated Unspecified as thma, uncomplicated Diagnosis 03/22/2020 03:26:00 PM EDT [facility] G8929 Other chronic pain Other chronic pain Diagnosis 03:26:00 PM EDT [facility] H28105 Personal history of nicotine dependence Personal history of nicotine dependence Diagnosis 03/09/2020 05:46:00 PM EDT [facility] K2970 Gastritis, unspecified, without bleeding Gastritis, unspecified, without bleeding Diagnosis 03/09/2020 05:46:00 PM EDT [facility] R109 Unspecified abdominal pain Unspecified abdominal pain Diagnosis 03/09/2020 05:46:00 PM EDT [facility] R631 Polydipsia Polydipsia Diagnosis 02/23/2020 10:36:00 AM ED T [facility] R358 Other polyuria Other polyuria Diagnosis 02/23/2020 10:36: 00 AM EDT [facility] J449 Chronic obstructive pulmonary disease, u nspecified Chronic obstructive pulmonary disease, unspecified Diagnosis 02/23/2020 10:36:00 AM EDT [facility] K43.2 Incisional hernia without obstruction or gangrene Incisional hernia without obstruction or Diagnosis 02/09/2020 08:51:[address] [facility] K43.0 Incisional hernia with obstruction, with out gangrene Incisional hernia with obstruction, with Diagnosis 02/09/2020 08:51:[address] [facility] J98.8 Other specified respiratory disorders Ot her specified respiratory disorders Diagnosis 02/04/2020 10:12:45 AM EDT [facility] U07.1 COVID-19 COVID-19 Diagnosis 02/04/2020 10:12:45 AM ED T [facility] K429 Umbilical hernia without obstruction or gangrene Umbilical hernia without obstruction or gangrene Diagnosis 01/27/2020 11:08:00 AM EDT [facility] M83016 Epilepsy, unspecified, not intractable, without status epilepticus Epilepsy, unspecified, not intractable, without status epilepticus Diagnosis 01/13/2020 01:42:00 PM EDT [facility] 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, thoracolumbar region Spondylolysi s, thoracolumbar region Diagnosis 01/12/2020 12:32:00 PM EDT [facility] R0789 Other chest pain Other chest pain Diagnosis 01/12/2020 12 :32:00 PM EDT [facility] X24842 Other urethral stricture, male, unspecif ied site Other urethral stricture, male, unspecified site Diagnosis 12/31/2019 08:45:00 AM T [facility] R3121 Asymptomatic microscopic hematuria Asymptomatic microscopic hematuria Diagnosis 12/31/2019 08:45:00 AM [facility] Z1159 Encounter for screening for other viral diseases Encounter for screening for other viral diseases Diagnosis 12/28/2019 09:05:00 AM [facility] Z713 Dietary counseling and surveillance Dietary coun seling and surveillance Diagnosis 12/14/2019 12:59:00 PM [facility] R99 Ill-defined and unknown cause of mortali ty Ill-defined and unknown cause of mortality Diagnosis 12/14/2019 12:20:00 PM EDT [facility] M6281 Muscle weakness (generalized) Muscle weakness (general ized) Diagnosis 11/29/2019 10:16:00 AM T [facility] M545 Low back pain Low back pain Diagnosis 11/29/2019 10:16:00 AM [facility] E785 Hyperlipidemia, unspecified Hyperlipidemia, unspecifie d Diagnosis 11/25/2019 12:56:00 PM T [facility] K5900 Constipation, unspecified Constipation, unspecified Di agnosis 11/25/2019 12:56:00 PM EDT [facility] K219 Gastro-esophageal reflux disease without esophagitis Gastro-esophageal reflux disease without esophagitis Diagnosis 11/25/2019 12:56:00 PM ED T [facility] I60997 Other spondylosis, thoracic region Other spondyl osis, thoracic region Diagnosis 11/19/2019 10:35:00 AM EDT [facility] H78612 Other spondylosis, lumbar region Other spondylos is, lumbar region Diagnosis 11/19/2019 10:35:00 AM EDT [facility] Z1331 Encounter for screening for depression E ncounter for screening for depression Diagnosis 11/18/2019 02:08:00 PM EDT [facility] J309 Allergic rhinitis, unspecified Allergic rhinitis, unsp ecified Diagnosis 11/18/2019 02:08:00 PM EDT [facility] R310 Gross hematuria Gross hematuria Diagnosis 10/21/2019 03:3 1:00 PM EDT [facility] R300 Dysuria Dysuria Diagnosis 10/21/2019 03:31:00 PM ED [facility] Surgeries/Procedures Procedure Description Date Indications Data Source(s) SURGERY CASE REQUEST OUTSIDE FACILITY ONLY SURGERY CA SE REQUEST OUTSIDE FACILITY ONLY Routine 06/28/2020 1:27 PM EST Arthritis of right subtalar joint Closed displaced fracture of right talus, unspecified fracture morphology, sequela 06/28/2020 01:27:23 PM EST Closed displa loyd fracture of right talus, unspecified fracture morphology, sequelaArthritis of right subtalar joint [facility] Closed displaced fracture of right talus , unspecified fracture morphology, sequela Arthritis of right subtalar joint BLOOD TYPING ABO TYPE AND SCREEN Routine 02/09/2020 12:30 PM EDT 02/09/2020 04:30:00 PM EDT [facility] ECG ROUTINE ECG W/LEAST 12 LDS TRCG ONLY W/O I&R ECG 12-LEAD Routine 02/04/2020 11:34 AM EDT Incisional hernia with obstruction 02/04/2020 03:34:20 PM ED T Incisional hernia with obstruction [facility] Incisional hernia with obstruction BLOOD COUNT COMPLETE AUTOMATED CBC Routine 0 11:30 AM EDT Incisional hernia with obstruction 02/04/2020 03:30:00 PM ED T Incisional hernia with obstruction [facility] Incisional hernia with obstruction BASIC METABOLIC PANEL CALCIUM TOTAL BASIC METABOLIC PANEL Routi ne 02/04/2020 11:30 AM EDT Incisional hernia with obstruction 02/04/2020 03:30:00 PM ED T Incisional hernia with obstruction [facility] Incisional hernia with obstruction Medical Nutrition Therapy Assmnt Interv Face To Face 15 Min 12/14/2019 12:00:00 AM EDT [facility] ([facility]) Brief Emotional/Behav Assessment W/ Scoring Doc Per Standard Inst 11/18/2019 12:00:00 AM EDT [facility] ([facility]) EST-LEVEL 4 10/06/2019 12:00:00 AM EDT - 10/06/2019 1 2:00:00 AM EDT [facility] ([facility]) Debridement, nails, 6 or more, any method 10/06/2019 12:00:00 AM EDT - 10/06/2019 12:00:00 AM EDT [facility] ([facility]) Results ID Date Data Source [id number] 08/09/2020 02:33:00 PM EST [facility] Name Value Range Interpretation Code Description Data Giovana rce(s) Supporting Document(s) SARS-CoV-2 (COVID 19) NEGATIVE - SARS-CoV-2 (COVID19) [facility] This lab was ordered by [facility] a nd reported by [facility]. ID Date Data Source [id number] 07/31/2020 05:40:00 PM EST [facility] Name Value Range Interpretation Code Description Data Giovana rce(s) Supporting Document(s) SARS coronavirus 2 RNA [Presence] in Res piratory specimen by TYRON with probe detection [facility] This lab was ordered by [facility] a nd reported by [facility]. ID Date Data Source [id number] 06/28/2020 01:51:39 PM EST [facility] Name Value Range Interpretation Code Description Data Giovana rce(s) Supporting Document(s) Progress Note [facility] QRSRVo6xVfCOVbFz03/VGAaoOCFwr5GrSOnjGHl3QGjzHGChE3FhATN1uG0jCXR4KLiFXgOqRyYwJpOz lbm [file] ICAgICAgICAgICAgICAgICAgICAgICAgICAgICAgICAgICAgICAgICAgICAgICAgICAgICAgICAgICAg ICAgICAgICAgICAgICAgICAgICAgICANCiAgICAgIC AgICAgICAgICAgICAgICAgICAgICAgICAgICAgICAgICAgICAgICAgICAgICAgICAgICAgICAgICAgIC AgICAgICAgICAgICAgICAgICAgICAgICAgICAgICAgICANCiAgICAgICAgICAgICAgICAgICAgICAgIC AgICAgICAgICAgICAgICAgICAgICAgICAgICAgICAg ICAgICAgICAgICAgICAgICAgICAgICAgICAgICAgICAgICAgICAgICAgICANCiAgICAgICAgICAgICAg ICAgICAgICAgICAgICAgICAgICAgICAgICAgICAgICAgICAgICAgICAgICAgICAgICAgICAgICAgICAg ICAgICAgICAgICAgICAgICAgICAgICAgICANCiAgIC AgICAgICAgICAgICAgICAgICAgICAgICAgICAgICAgICAgICAgICAgICAgICAgICAgICAgICAgICAgIC AgICAgICAgICAgICAgICAgICAgICAgICAgICAgICAgICAgICANCiAgICAgICAgICAgICAgICAgICAgIC AgICAgICAgICAgICAgICAgICAgICAgICAgICAgICAg ICAgICAgICAgICAgICAgICAgICAgICAgICAgICAgICAgICAgICAgICAgICAgICANCiAgICAgICAgICAg ICAgICAgICAgICAgICAgICAgICAgICAgICAgICAgICAgICAgICAgICAgICAgICAgICAgICAgICAgICAg ICAgICAgICAgICAgICAgICAgICAgICAgICAgICANCi AgICAgICAgICAgICAgICAgICAgICAgICAgICAgICAgICAgICAgICAgICAgICAgICAgICAgICAgICAgIC AgICAgICAgICAgICAgICAgICAgICAgICAgICAgICAgICAgICAgICANCiAgICAgICAgICAgICAgICAgIC AgICAgICAgICAgICAgICAgICAgICAgICAgICAgICAg ICAgICAgICAgICAgICAgICAgICAgICAgICAgICAgICAgICAgICAgICAgICAgICAgICANCiAgICAgICAg ICAgICAgICAgICAgICAgICAgICAgICAgICAgICAgICAgICAgICAgICAgICAgICAgICAgICAgICAgICAg ICAgICAgICAgICAgICAgICAgICAgICAgICAgICAgIC ANCjw/fMAtL5rlsWTgoaB8L1niSh1AFc6DZN4td8SjYCDnXQiqxfHnNtvQRoWtEIHqAanONnx3WUklAR 6IlLEpR5ZqG4LnLAuoFW9YPYHfCXKojNVeQJIpEZYtRlT9FMNjRGebXS0LpBDuJQvrCHMsTDPhDlJaDL HdWH3CVEUeG925jmGoJb1OXh0DFhFnLZ2faw4JBdpv YPTpNstNEml6JBsrMH2OeJHvpKQeXKUiNNWTLiIcY6upx2YaZeufIFKTVAhbUZ2Es1LhvCXpPQy+Pg0K ES9ve9SpLVztZTXnHS5roo0OMPoDPrTrW4IkxXdcALUld3xqNLLmNN3ovFOqMQP5WKUau0I1GD3dFtPq joGds2NgZmDcIgfnNCHuHMYiBJCwSp2fZCZbBPEiIk GeJSAEZG4USFYoVEZmoRPrYWEuVYDKSE9BZNpkRKG2JSChllOxeZGeXQftXF1FLDPeyyDlFsouYCSGYO o+Qz7CDB6ty5NmAMceREYoZW5reo2QNCzVUeQbB6X3gQFqW5F5KRrkZc7XTHDrXKYfDjBxRLFHQQzkFC 1TGP2ksgJ5AQ1YnNFqWZVkOHXavZPgDKh4O26cyTWh VJskVO4NPUY+Jey+Gh9EGSZbRQTsZJDzOgSsFOFIRqErL3VuI5XKm3XiB1KdFA60eMrxpsHfMZuaOE9C NQ6qRIKzICCOQB4XdJYnjS4gjcQgEsYpIRXGPcQgY89bwPGqTBObAJF9LWCjRi9QBSWjY8FnleFsgUks phAeCJYoRUOGKC9NQLxduoNowQEbsWhzMG70kBprQI 0NZx2XJdHbUF3cov1CzHXaOs6EWRMkYV9JEKTbXINeOIRqRAQ4YYOxNrXbXQpoSWCjVYVnZVM4UQWwTJ ZbPN1LIzEwRNBrExS4PSZxIDLqDJAlvq3UHMZrJAGvLhU5ZrDoCTQqWQWuUIudGDVuHODpOWH9EMFcPW TtHP5JBhDzRIDnXPM4GMLyKFYqALVyri4KBEVdVUIz DPZ3AxCuWQLoKTGpASotCYLeDAN0REVuWSDgLTIeEK3CRoAyXTAoWWttIPGzXMRtKPWmcl2TIEXwMGFl EMT1EqKwNHCoJQTcWCbjDFDeFDM5AgZ2RAObLQErCO0KSsIgPENdGYo3BOLoTGXhRMTtjg4EQAWwZPQn FAE3EXOoEOVpPQJfGAamCPGcQQM8UnEqCRScVYOtPP 8WOgQxKIQeKEz3XBpgJXRwPNIsht5OQCJoQBBlVVN4PVDlSPXeBQAoZQjuXYNdWQKwDVXuMEQpKCWsAN 2CSsQwXELaYmW5PdzbARXiWHHevf6NGZBmTHMtDcBmOXVoPKVgGOLdNMzeMEUzONCtJOS5MOBbYMOzSI 7WObIqEOKoFaBeFYweRIBjCKAjnu6UFQFcPTEfTfM6 BPCjJJGbGNNwEEgzPELwEPRuZJj5KHJmQJUzWC5BImItZXDaVjJ2DDhuJUMnISAome1QPDOdACFdMNSe LiHiGYPdXBRfXXvvADCuOIU5Rqf8ZRNoUMSeHZ2BGjIgRXKhIaWdEVgdBAXvVCTbwj1MVBZxFCQtVlC6 USXaZXSfRMJnXHyeTPSjRHX4HzYkOJTxYUIhWV9AZy OuGYCrEcP9HLsvCRIwQCNeql7RyYKzaKndty6ZDWbOTa7SvXpiWGLsKZogTp8eaCKaWANdSGWNWc4Lgj QgTFDvPIZUKKzbTYZxOPPjWyRuRtGvJvO8GFHuMTR7JUMnWdstSuGrIdYoODWqYmP9FPSiPRAqMNSvVI LuB4SgFepaIZKjXFU5MCMzVXS5ZbB+YE3jAFd+Dn6Tx8YwvnB0llXwLPhbGwIuTo3KLRUUD7OQFz== ID Date Data Source [id number] 06/06/2020 03:12:03 PM [facility] Name Value Range Interpretation Code Description Data Giovana rce(s) Supporting Document(s) Progress Note [facility] ESFZHv9mVrPKLfTz64/XUYtzPJDse7VtHSmyKKb5RZkgOPTbS2RbSZJ8qK2bLNV3IMuJEkEtEoYmZHHc lbm [file] GmB9XOX9LuR0MjF+TN8kIUf+Df4Oh8FclpD8juExOTojOJEnLv6UBMGUN0MGTl== ID Date Data Source [id number] 05/10/2020 10:14:00 AM EDT [facility] Name Value Range Interpretation Code Description Data Giovana rce(s) Supporting Document(s) Surgical pathology study Laboratory test result [facility] ([facility]) FINAL DIAGNOSIS Esophagus, below Z-line, biopsy: Junctional [...] MD 05/12/2020 1140 ID Date Data Source [id number] 05/09/2020 02:17:55 PM EDT [facility] Name Value Range Interpretation Code Description Data Giovana rce(s) Supporting Document(s) Progress Note [facility] SKXIOf9cUzXOItJa38/XQRmuZRMpv2RtZSpxSVr3BVhzTEHhM8UuWFG0eO5gEQD3ODlQNmCoQkIjPCWx [facility] [file] ICAgICAgICAgICAgICAgICAgICAgICAgICAgICAgICAgICAgICAgICAgICAgICAgICAgICAgICAgICAg ICAgICAgICAgICAgICAgICAgICAgICAgICAgICAgICAgDQogICAgICAgICAgICAgICAgICAgICAgICAg ICAgICAgICAgICAgICAgICAgICAgICAgICAgICAgIC AgICAgICAgICAgICAgICAgICAgICAgICAgICAgICAgICAgICAgICAgICAgDQogICAgICAgICAgICAgIC AgICAgICAgICAgICAgICAgICAgICAgICAgICAgICAgICAgICAgICAgICAgICAgICAgICAgICAgICAgIC AgICAgICAgICAgICAgICAgICAgICAgICAgDQogICAg ICAgICAgICAgICAgICAgICAgICAgICAgICAgICAgICAgICAgICAgICAgICAgICAgICAgICAgICAgICAg ICAgICAgICAgICAgICAgICAgICAgICAgICAgICAgICAgICAgDQogICAgICAgICAgICAgICAgICAgICAg ICAgICAgICAgICAgICAgICAgICAgICAgICAgICAgIC AgICAgICAgICAgICAgICAgICAgICAgICAgICAgICAgICAgICAgICAgICAgICAgDQogICAgICAgICAgIC AgICAgICAgICAgICAgICAgICAgICAgICAgICAgICAgICAgICAgICAgICAgICAgICAgICAgICAgICAgIC AgICAgICAgICAgICAgICAgICAgICAgICAgICAgDQog ICAgICAgICAgICAgICAgICAgICAgICAgICAgICAgICAgICAgICAgICAgICAgICAgICAgICAgICAgICAg ICAgICAgICAgICAgICAgICAgICAgICAgICAgICAgICAgICAgICAgDQogICAgICAgICAgICAgICAgICAg ICAgICAgICAgICAgICAgICAgICAgICAgICAgICAgIC AgICAgICAgICAgICAgICAgICAgICAgICAgICAgICAgICAgICAgICAgICAgICAgICAgDQogICAgICAgIC AgICAgICAgICAgICAgICAgICAgICAgICAgICAgICAgICAgICAgICAgICAgICAgICAgICAgICAgICAgIC AgICAgICAgICAgICAgICAgICAgICAgICAgICAgICAg DQogICAgICAgICAgICAgICAgICAgICAgICAgICAgICAgICAgICAgICAgICAgICAgICAgICAgICAgICAg VFBjMMKhONMeCOSqJEGhAKGiOFVaUDVpDHZkHSEmVQLvHLQiVTPkNCZiZUe7B3cxGRGcXLAsQA3uIRb8 Jz8+SQaGZaDyPOR5ieRrcW0IQG4fz0YaXSpxNQHsz4 LdSXc3WS7QKOEjROgtZT3CIMhnpz8IASFgNIZjuGJXp3pvOePsKHE0ZYLgGovkLU8YYBDtZ5vqtzOpZJ KuVODVZAobPKGCWAifJZWUCOCwGNPkGcZjKYjeQN1Sr9IhxRY5SPc+Mk7JVH3ns2IeNSjgMNSaMI3mua 9YNLbCHhFyU4QauwK3TTXcZZSxJd7OZPXrPCUqqEAe UeEbEXVEEeYxL3PtnK45NRXRZo4+MFggxpCsUkxPYiYzXQZti4GfMYx2AY6OGVYtKPy3wHThQHRxF8Jk a4JsYp00QLAuVxsoB1LhxZhyzuDNDOUxHBasqPlePO3ENVY0RCUmQwEnCcZlIjPtMHL8CLNoAR1iCDtp RF7DSJE1SOnhINUzECKjG3nOZyFwMCNxHJZqwWomNS 5YGmOaP3ApxuUbfSYqPPNjZQKKId6+WZzqyiXfFtqYVePdPYWir8YcWVj8TZ3TMVDsMWduXF7NGYTleT 0zAKriNM3YIoGiINAoKLGHRvJcR76vfRXuYNw4N7QbUeViIKYrZkmeJFZhIYfmZlZcZOPoNdHcDQlvNY 4+ID4+ZRzpAT4OKXxuviRkQYZjJv6GRIGgCAUqNI1m ADRpPUTvP3O4cPoyUGHKJwFmV5xebbyxBM1jUAFsB606gNtvqnPbFURlWTCaEv3EBBHiMFN6DMBijDUh QxByOVIXAVxcLG0GsQXdQKS9nJ7zRZjbHUEzAHLiQ2zTMlSemAcnGN14vVbnttQqqYViHYk+Gf1XSP8o o4KdFZd1snIeTDdqPBO6PCdqWBPfDZIqQNDbGAQ7SS I3UGNZOaAiIULmTEIxUMyrDBRsWPPthp9WVRNwTCP1Lbg7ACCgXNIjIIZnYKmuJHIoEEC0LAf7TIByNM QbPN3LSzRpGZDpTEQcIIdxYCZcMFIwfa5YQAGoXHAtMsB8GpXgTGVcJMEjLMpxKKMdRKIpUGTxKYRiTP SzQG5LFfBzMGBkPQdxLYXuEPZkDFIxjy8YQFLiAPPk ZaM6ZnRaTMHbNGPwKGkhWAHsFRRfZxR1HNJxZGUpZO6WFhXhPDVxVUQ9MmFjRRWqRLRhxd8BWVXmRBFb TlIgGDWjVDLmLISmYZbcBCCnTQXyCfF7MLGtIBMtWQ6PPdWnNUPhRSCrNTMxVWBvVHNbbi5XODZlRGVx WKR7SACuKPPuWPBmGFevVXQxTNW2JeR2NPDpZASjXG 9IIxDfPUMxWMG1QlNqZWPzXUGdkd8QTOGzMXBmYRlePPNcHHKyGEJkAOqlWDTiUJG6JROhPRVrRGTvZG 8KTxOhLAXtVTskIDAxCLDuCOGxbp5KPAHpLLB8NCc4WiQhSWAsBTAcRWzoGHOyKCNjKmFrLYLrDIKmGQ 8RRkJdPGKdHNOgMmFdNALrIDSalh3SMTUqFYM5JPEa OdPtKULcGWKsTKqlYVPcMPEuIMIzFGQpRXEdYB0DXzJxPXQvFCIbEABiNKMqXMRxic5MYNHgUCW8TnRn HqRgIGExQVHpEFzcGJFnNFPyUFJ2RSGwEGJfGN1GAfXdELZiUQG5JPGhFSYpMXSxhp8SXDKjEGD9Toxr VvYdPKUfJPJhWUirKUDbVPY0BaD2JLJrWMNeWW5KGp WqWZNyFNX8ESMpHXAkWSGgca2XYNUtHWB6YVv2XgTsRNHfUFWyRXqsLEKqNAW4CTG1LLKsOLStTP9YQa UuFEyhOUKRNes6VYkoS2x3BGGtLT6IO0Ubx2YeOsJmMLNYSVijQT7foaFpIWMxPr5VW2oALhm8NAEpB5 DlYcDvDCZ2OQgmUeDmGmE8MsghRhItCcR6NS2oOWAh BIO3XVKeCsI1DOQvLCH2YXYzZMCxLJCoR2CxWKanMsMyMD9TIm2OHgS5GKP9iXInQz2FOTFgOZLBDkLv KQ1EZZe= ID Date Data Source [id number] 05/05/2020 11:55:00 AM EDT [facility] Name Value Range Interpretation Code Description Data Giovana rce(s) Supporting Document(s) SARS coronavirus 2 RNA [facility] This lab was ordered by [facility] and reported by [facility]. ID Date Data Source [id number] 04/27/2020 06:09:28 AM EDT [facility] XR FOOT 3 OR MORE VIEWS [id number] RESUL TInterpreted by:Fallon Smith ankle 2 views [...] rce(s) Supporting Document(s) ID Date Data Source [id number] 04/27/2020 06:09:28 AM EDT [facility] XR ANKLE 2 VIEWS [id number] RESULTInterp reted by:INGRID Smithight ankle 2 views and right foot 3 [...] rce(s) Supporting Document(s) ID Date Data Source [id number] 04/26/2020 04:20:41 PM EDT [facility] Name Value Range Interpretation Code Description Data Giovana rce(s) Supporting Document(s) Progress Note [facility] PWJEOc6oZnCXUwEz27/WGRsvIMOuk6FzMHijOQn4RDudWECqW9RnPKP7tB3eBCL4KUmHTtMmKiVxYKEu m [file] gfRoQqRX3AWf3FWzW1CQB9eWKpWj6XLuN4WegWPiHlSI4QQVe= ID Date Data Source [id number] 03/29/2020 12:20:00 [place] [address] PHONE: [phone] FAX: [phone] Name .................. : GAVIOTA Madison Acct Number.................. : [id number] ROOM. ................. : MR Number ................... : [id number] Stay type ............. : CLINIC Discharge Date......... ... : 03/27/20 Admit Date ......... : 03/27/20 Admit Phys .................... : HESTER HARD Date of ....... : 1990 Family Phys ................... : [employer] HARD Phone .................. : [phone] Age ................................ : 29 Film# .................. .:[id number] Sex ................................. : M Unsigned transcriptions are preliminary reports and do not represent a medical or legal document CT ABD & PELV W/O ORAL W/O IV [id number] COMPLETE:03/27/20 14:16 RLB 34778 (REASON FOR ABDOMEN: LOWER ABD PAIN CT [...] dose: 2953.0 mGycm Page 1 of 2 [facility] [address] [place] [address] PHONE: [phone] FAX: [phone] Name .................. : GAVIOTA Madison Acct Number.................. : [id number] ROOM. ................. : Number ................... : [id number] Stay type ............. : CLINIC Discharge Date......... ... : 03/27/20 Admit Date ......... : 03/27/20 Admit Phys .................... : HESTER HARD Date of ....... : 1990 Family Phys ................... : [employer] HARD Phone .................. : [phone] Age ................................ : 29 Film# .................. .:[id number] Sex ................................. : M Unsigned transcriptions are preliminary reports and do not represent a medical or legal document CT ABD & PELV W/O ORAL W/O IV [id number] COMPLETE:03/27/20 14:16 RLB [id number] (REASON FOR ABDOMEN: LOWER ABD PAIN Electronically Reviewed and Signed By Yousif Bernardo M.D. , 03/29/20 12:20, MARQUISE Transcribe Initials: GUCCI , Transcribe Date: 03/27/20 23:48, Dictation Date: Page 2 of 2 Name Value Range Interpretation Code Description Data Giovana rce(s) Supporting Document(s) ID Date Data Source [id number] 03/22/2020 03:26:00 PM EDT [facility] 1 OrderSheet [facility] Emergency Department [address] [place] [address] Phone #: ext- [phone] 03/22/2020 15:24 Patient: [...] (17:36 03/22/2020)][Electronically locked by Enedina Banda R.N. (:03/22/2020)] Name Value Range Interpretation Code Description Data Giovana rce(s) Supporting Document(s) ID Date Data Source [id number] 03/22/2020 03:26:00 PM EDT [facility] 1 Medication Reconciliation Report [facility] Emergency Department [address] [place] [address] Phone #: ext- [phone] 03/22/2020 15:24 Patient: [...] ODT Oral, prn 2 Medication Reconciliation Report [facility] Emergency Department [address] [place] [address] Phone #: ext- [phone] 03/22/2020 15:24 Patient: NICK TRUJILLO Sex: M : 1990 Age: 29yThe source(s) of the original Home Medication information:patientThe following Medications were given to the patient in the Emergency Department:Ativan [IM] IM 1 mg, administered: 03/22/2020 4:03:00 PMThe following Medications were prescribed to the patient:None. Name Value Range Interpretation Code Description Data Giovana rce(s) Supporting Document(s) ID Date Data Source [id number] 03/22/2020 03:26:00 PM EDT [facility] 1 Medication Administration Record [facility] Emergency Department [address] [place] [address] Phone #: ext- [phone] 03/22/2020 15:24 Patient: NICK TRUJILLO Sex: M : 1990 Age: 29yWeight: 190.5 kgHeight/Length: 71 inBMI: 58.6ALLERGIES: Dilantin, Naproxen, Naproxsyn, Tylenol with codein Date/Time Medication Administered Medication OrderedGiven ATIVAN [IM] (LORAZEPAM) Ativan IM 1 mg (HIGH ALERT16:03 03/22/2020 Dose: 1 mg IM MEDICATION)Enedina Banda R.N. Name Value Range Interpretation Code Description Data Giovana rce(s) Supporting Document(s) ID Date Data Source [id number] 03/22/2020 03:26:00 PM EDT [facility] 1 General Instructions [facility] Emergency Department [address] [place] [address] Phone #: ext- [phone] 03/22/2020 15:24 Patient: NICK TRUJILLO Sex: M : 1990 Age: 29yChronic periumbilical abdominal pain, now resolved. (recurrent).INSTRUCTIONSDrink plenty of fluids. Avoid alcohol and NSAIDS. NSAIDS include aspirin, ibuprofen (Advil) and naproxen(Aleve). Avoid fatty, fried/greasy, lactose-containing (such as milk, cheese and ice cream), salty and spicyfoods. No alcohol. Do not smoke.Warnings: Further evaluation is necessary ([facility]). It is very important to [...] provided to patient viapaper. 2 General Instructions [facility] Emergency Department [address] [place] [address] Phone #: ext- [phone] 03/22/2020 15:24 Patient: NICK TRUJILLO Sex: M : 1990 Age: 29yUnderstanding of the discharge instructions verbalized by patient. Expected course of illness, dischargeinstructions, activity level, diet, follow-up appointment and risks and benefits of treatment reviewed withpatient and understanding verbalized. Agrees to plan of care.Follow-up with: [facility], , , [address] [place] [address], [id number] Follow up in five days even if [...] options include broth, soup, 3 General Instructions [facility] Emergency Department [address] [place] [address] Phone #: ext- [phone] 03/22/2020 15:24 Patient: [...] chest, arm, back, neck or jaw pain [id number] [employer]. [address] [place] [address]. All rights reserved. This information is not intended as asubstitute for professional medical care. Always follow your healthcare professional's instructions. You have been given the following additional information: Unknown Causes of Abdominal Pain (Male)(Electronically signed by Cleo Gruber M.D. 03/22/2020 17:36) Name Value Range Interpretation Code Description Data Giovana rce(s) Supporting Document(s) ID Date Data Source [id number] 03/22/2020 03:26:00 PM EDT [facility] 1 Clinical Report - Nurses [facility] Emergency Department [address] [place] [address] Phone #: ext- [phone] 03/22/2020 15:24 Patient: [...] Osei R.N. 2 Clinical Report - Nurses [facility] Emergency Department [address] [place] [address] Phone #: ext- [phone] 03/22/2020 15:24 Patient: [...] Osei R.N. 3 Clinical Report - Nurses [facility] Emergency Department [address] [place] [address] Phone #: ext- [phone] 03/22/2020 15:24 Patient: NICK TRUJILLO Sex: M : 1990 Age: 29y 15:59 03/22/20. BP: 141/76. MAP: 97. HR: 98. RR: 20. O2 saturation: 100%. --15:59 03/22/20 Olga LUTHER TechEnedina ER Tech1 16:03 03/22/2020 Ativan (LORazepam) [...] Patient verbalized understanding. Written instructions provided in Lebanese. The patient was discharged home. He left ambulatory and via private vehicle. --17:24 03/22/20 Enedina Banda R.N.Locked/Released at 03/22/2020 17:25 by Enedina Banda R.N. Name Value Range Interpretation Code Description Data Giovana rce(s) Supporting Document(s) ID Date Data Source [id number] 03/22/2020 03:26:00 PM EDT [facility] 1 Clinical Report - Physicians/Mid Levels [facility] Emergency Department [address] [place] [address] Phone #: ext- [phone] 03/22/2020 15:24 Patient: NICK TRUJILLO Sex: M [...] umbilical hernia repair several weeks ago at [facility], saw his surgeon last week for [...] Cholecystectomy. 2 Clinical Report - Physicians/Mid Levels [facility] Emergency Department [address] [place] [address] Phone #: ext- [phone] 03/22/2020 15:24 Patient: NICK TRUJILLO [facility]#: [id number] Sex: M : 1990 Age: 29y Hernia [...] pulses 3 Clinical Report - Physicians/Mid Levels [facility] Emergency Department [address] [place] [address] Phone #: ext- [phone] 03/22/2020 15:24 Patient: [...] 8.2) 4 Clinical Report - Physicians/Mid Levels [facility] Emergency Department [address] [place] [address] Phone #: ext- [phone] 03/22/2020 15:24 Patient: NICK TRUJILLO Sex: M [...] be referred to our surgeon here at [facility] for his chronic, recurrent abdominal pain, [...] (recurrent). 5 Clinical Report - Physicians/Mid Levels [facility] Emergency Department [address] [place] [address] Phone #: ext- [phone] 03/22/2020 15:24 Patient: NICK TRUJILLO Sex: M : 1990 Age: 29yINSTRUCTIONS Drink plenty of fluids. Avoid alcohol and NSAIDS. NSAIDS include aspirin, ibuprofen (Advil) and naproxen (Aleve). Avoid fatty, fried/greasy, lactose-containing (such as milk, cheese and ice cream), salty and spicy foods. No alcohol. Do not smoke. Warnings: Further evaluation is necessary ([facility]). It is very important to [...] plan of care. Follow-up with: [facility], , , [address] [place] [address], [facility] Follow up in five days even if well. Call for an appointment. Reason for referral: evaluation and treatment. Summary of care provided to patient via paper. 6 Clinical Report - Physicians/Mid Levels [facility] Emergency Department [address] [place] [address] Phone #: ext- [phone] 03/22/2020 15:24 Patient: NICK TRUJILLO Sex: M : 1990 Age: 29y(Electronically signed by Cleo Gruber M.D. 03/22/2020 17:36) Name Value Range Interpretation Code Description Data Giovana rce(s) Supporting Document(s) ID Date Data Source [id number] 03/22/2020 04:34:00 PM EDT [facility] Name Value Range Interpretation Code Description Data Giovana rce(s) Supporting Document(s) Lipase [Enzymatic activity/volume] in Serum or Plasma 34 U/L 13 - 60 [facility] ID Date Data Source [id number] 03/22/2020 04:34:00 PM EDT [facility] Name Value Range Interpretation Code Description Data Giovana rce(s) Supporting Document(s) COMPREHENSIVE METABOLIC PANEL [facility] COMPREHENSIVE METABOLIC PANEL Sodium [Moles/volume] in Serum or Plasma 140 mEq/L 134 - 153 [facility] Potassium [Moles/volume] in Serum or Plasma 4.2 mEq/L 3.6 - 5.0 [facility] Chloride [Moles/volume] in Serum or Plasma 106 mEq/L 98 - 107 [facility] Carbon dioxide, total [Moles/volume] in Serum or Plasma 24 MEQ/L 22 - 30 [facility] Glucose [Mass/volume] in Serum or Plasma 110 MG/DL 65 - 110 [facility] BUN 12 MG/DL 7 - [facility] Creatinine [Mass/volume] in Serum or Plasma 0.9 MG/DL 0.7 - 1.5 [facility] BUN/CREAT 13 8 - 27 [facility] Protein [Mass/volume] in Serum or Plasma 7.7 G/DL 6.3 - 8.2 [facility] Albumin [Mass/volume] in Serum or Plasma 4.1 G/DL 3.9 - 5.0 [facility] Globulin [Mass/volume] in Serum by calculation 3.6 GM/DL 2.4 - 3.2 H [facility] A/G RATIO 1.1 0.8 - 2.0 [facility] Calcium [Mass/volume] in Serum or Plasma 9.0 MG/DL 8.4 - 10.2 [facility] Bilirubin.total [Mass/volume] in Serum or Plasma <0.7 MG/DL 0.2 - 1.3 [facility] Alkaline phosphatase [Enzymatic activity/volume] in Serum or Plasma 83 U/L 38 - 126 [facility] Aspartate aminotransferase [Enzymatic activity/volume] in Serum or Plasma 27 U/L 5 - 40 [facility] Alanine aminotransferase [Enzymatic activity/volume] in Seru m or Plasma 37 U/L 7 - 56 [facility] Anion gap 3 in Serum or Plasma 10.0 mmol/L 8.0 - 16.0 [facility] AGE 29 yrs [facility] NON-AA GFR >60 mL/min [facility] AFR AMER GFR >60 mL/min [facility] sp[facility] Male GFR In terprentation [...] >32 mL/min Normal ID Date Data Source [id number] 03/22/2020 04:15:00 PM EDT [facility] Name Value Range Interpretation Code Description Data Giovana rce(s) Supporting Document(s) CBC W/AUTOMATED DIFF [facility] COMPLETE BLOOD COUNT Leukocytes [#/volume] in Blood by Automated count 9.6 10^3/uL 4.2 - 1 1.0 [facility] Erythrocytes [#/volume] in Blood by Automated count 5.41 10^6/uL 4. 50 - 6.30 [facility] Hemoglobin [Mass/volume] in Blood 15.9 g/dL 14.0 - 16.0 [facility] Hematocrit [Volume Fraction] of Blood by Automated count 48.7 % 4 1.0 - 51.0 [facility] Erythrocyte mean corpuscular volume [Entitic volume] by Auto mated count 90.0 fL 80.0 - 94.0 [facility] Erythrocyte mean corpuscular hemoglobin [Entitic mass] by Automated count 29.4 pg 27.0 - 34.0 [facility] Erythrocyte mean corpuscular hemoglobin concentration [Mass/volume] by Automated count 32.6 g/dL 31.0 - 36.0 [facility] Erythrocyte distribution width [Ratio] by Automated count 14.4 % 11.5 - 14.8 [facility] Platelets [#/volume] in Blood by Automated count 197 10^3/uL 150 - 45 0 [facility] Platelet mean volume [Entitic volume] in Blood by Automated count 9.0 fL 7.4 - 10.4 [facility] Neutrophils/100 leukocytes in Blood by Automated count 63.6 % 37. 0 - 80.0 [facility] Lymphocytes/100 leukocytes in Blood by Manual count 22.2 % 25.0 - 40.0 L [facility] Monocytes/100 leukocytes in Blood by Automated count 9.9 % 3.0 - 8.0 H [facility] Eosinophils/100 leukocytes in Blood by Automated count 3.7 % 0.0 - 7.0 [facility] Basophils/100 leukocytes in Blood by Automated count 0.3 % 0.0 - 2.0 [facility] %IG 0.3 % 0.0 - 0.0 [facility] %NRBC 0.0 % 0.0 - 0.0 [facility] al Neutrophils [#/volume] in Blood by Automated count 6.13 10^3/uL 2.00 - 6.90 [facility] Lymphocytes [#/volume] in Blood by Automated count 2.14 10^3/uL 0.60 - 3.40 [facility] Monocytes [#/volume] in Blood by Automated count 0.95 10^3/uL 0.00 - 0.90 H [facility] Eosinophils [#/volume] in Blood by Automated count 0.36 10^3/uL 0.00 - 0.70 [facility] Basophils [#/volume] in Blood by Automated count 0.03 10^3/uL 0.00 - 0.20 [facility] #IG 0.03 10^3/uL 0.00 - 0.10 [facility] ospital #NRBC 0.00 10^3/uL 0.00 - 0.00 [facility]spital MANUAL DIFF NOT INDICATED [facility] RBC MORPH NOT INDICATED [facility] ID Date Data Source [id number] 03/13/2020 02:06:00 PM EDT [facility] [place] [address] PHONE: [phone] FAX: [phone] Name .................. : GAVIOTA Madison Acct Number.................. : [id number] [facility]... : [id number] Stay type ............. : E/R Discharge Date......... ... : Admit Date ......... : 03/09/20 Admit Phys .................... : TALIA Madison Date of ....... : 1990 Family Phys ................... : HESTER HARD Phone .................. : [phone] Age ................................ : 29 Film# .................. .:[id number] Sex ................................. : M Unsigned transcriptions are preliminary reports and do not represent a medical or legal document CT ABD & PELV W/ORAL ONLY [id number] COMPLETE:03/09/20 21:11 KJE [id number] Reason(s): Abdominal Pain CT OF THE ABDOMEN [...] 75 Isovue 370 Page 1 of 2 [facility] [address] [place] [address] [place] [address] PHONE: [phone] FAX: [phone] Name .................. : GAVIOTA Madison Acct Number.................. : [id number] ROOM. ................. : TR-08 MR Number ................... : [id number] Stay type ............. : E/R Discharge Date......... ... : Admit Date ......... : 03/09/20 Admit Phys .................... : TALIA Madison Date of ....... : 1990 Family Phys ................... : MIR HARD Phone .................. : [phone] Age ................................ : 29 Film# .................. .:[id number] Sex ................................. : M Unsigned transcriptions are preliminary reports and do not represent a medical or legal document CT ABD & PELV W/ORAL ONLY [id number] COMPLETE:03/09/20 21:11 KJE [id number] Reason(s): Abdominal Pain Method of administration: Intravenous Electronically Reviewed and Signed By Yousif Bernardo M.D. , 03/13/20 14:06, [place] Transcribe Initials: GUCCI , Transcribe Date: 03/09/20 23:30, Dictation Date: Copy for: EMERGENCY DEPT via modem Copy for: 710 MED REC DISCHARGED Page 2 of 2 Name Value Range Interpretation Code Description Data Giovana rce(s) Supporting Document(s) ID Date Data Source [id number] 03/09/2020 05:46:00 PM EDT [facility] 1 OrderSheet [facility] Emergency Department [address] [place] [address] Phone #: ext- [phone] 03/09/2020 17:13 Patient: NICK TRUJILLO Sex: M [...] M.D.;CBC w Diff STAT 18:54 03/09/2020 18:55 Phillip Hitesh Melgar RN, M.D.;Urinalysis (Clean STAT 18:54 03/09/2020 19:13 [...] Description Priority Entered Acknowledged Initialed 2 OrderSheet [facility] Emergency Department [address] [place] [address] Phone #: ext- [phone] 03/09/2020 17:13 Patient: [...] rce(s) Supporting Document(s) ID Date Data Source [id number] 03/09/2020 05:46:00 PM EDT [facility] 1 Medication Reconciliation Report [facility] Emergency Department [address] [place] [address] Phone #: ext- [phone] 03/09/2020 17:13 Patient: [...] ODT Oral, prn 2 Medication Reconciliation Report [facility] Emergency Department [address] [place] [address] Phone #: ext- [phone] 03/09/2020 17:13 Patient: NICK TRUJILLO Sex: M : 1990 Age: 29yThe source(s) of the original Home Medication information:Not obtained.The following Medications were given to the patient in the Emergency Department:None.The following Medications were prescribed to the patient:None. Name Value Range Interpretation Code Description Data Giovana rce(s) Supporting Document(s) ID Date Data Source [id number] 03/09/2020 05:46:00 PM EDT [facility] 1 Medication Administration Record [facility] Emergency Department [address] [place] [address] Phone #: ext- [phone] 03/09/2020 17:13 Patient: NICK TRUJILLO Sex: M : 1990 Age: 29yWeight: 179.1 kgHeight/Length: 71 inBMI: 55.1ALLERGIES: Naproxen, Dilantin, Tylenol with codiene, Naproxsyn, Tylenol with codeinDate/Time Medication Administered Medication Ordered Name Value Range Interpretation Code Description Data Giovana rce(s) Supporting Document(s) ID Date Data Source [id number] 03/09/2020 05:46:00 PM EDT [facility] 1 General Instructions [facility] Emergency Department [address] [place] [address] Phone #: ext [phone] 03/09/2020 17:13 Patient: NICK TRUJILLO Sex: M [...] when you follow up. 2 General Instructions [facility] Emergency Department [address] [place] [address] Phone #: ext- [phone] 03/09/2020 17:13 Patient: [...] red or black color) 3 General Instructions [facility] Emergency Department [address] [place] [address] Phone #: ext- [phone] 03/09/2020 17:13 Patient: NICK TRUJILLO Sex: M : 1990 Age: 29y Jaundice (yellow color of eyes and skin) New onset of weakness, dizziness or fainting New onset of chest, arm, back, neck or jaw pain [id number] [employer]. [address] [place] [address]. All rights reserved. This information is not [...] bloating Feeling full quickly 4 General Instructions [facility] Emergency Department [address] [place] [address] Phone #: ext- [phone] 03/09/2020 17:13 Patient: [...] dizzy Shortness of breath 5 General Instructions [facility] Emergency Department [address] [place] [address] Phone #: [phone]- [phone] 03/09/2020 17:13 Patient: NICK TRUJILLO Sex: M : 1990 Age: 29y Unexplained weight loss Fever of 100.4F (38C) or higher, or as directed by your healthcare provider [phone] [employer]. [address] [place] [address], [place] [address]. All rights reserved. This information is not [...] rce(s) Supporting Document(s) ID Date Data Source [id number] 03/09/2020 05:46:00 PM EDT [facility] 1 Clinical Report - Nurses [facility] Emergency Department [address] [place] [address] Phone #: ext- [phone] 03/09/2020 17:13 Patient: NICK TRUJILLO Sex: M : 1990 Age: 29yTRIAGEArrived by EMS. Historian: patient. ( PT HAD HERNIA SURGERY 4 WEEKS AGO AND HE SAYS MAGNOLIA RIVERA. NO DRAINAGE. PT HAS APPT NEXT TUES WITH SURGEON-DR. FINNEY IN [place].PROCEDURE [place] [facility] [place]).Triage time: 17:14 03/09/2020. 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 --17:18 03/09/20 Enedina Banda R.N.17:14 03/09/20. BP: [...] Banda R.N.Naproxsyn. 2 Clinical Report - Nurses [facility] Emergency Department [address] [place] [address] Phone #: ext- [phone] 03/09/2020 17:13 Patient: [...] treatment room. --17:18 03/09/20 Enedina Banda R.N.PHYSICAL AVZIGTGJYR30:29 03/09/20. To room via stretcher.GENERAL / NEURO [...] RR: 16. O2 saturation: 97%. --18:27 03/09/20 [place] agricultural technicianEnedina, ER Tech1 18:30 03/09/20. Patient gowned. Head of bed elevated 75 degrees. Two patient identifiers checked. Call light placed in reach. Bed placed in lowest position. Brakes of bed on. Patient ready for evaluation- chart flagged. --18:30 03/09/20 Phillip Drummond RN 3 Clinical Report - Nurses [facility] Emergency Department [address] [place] [address] Phone #: ext- [phone] 03/09/2020 17:13 Patient: NICK TRUJILLO Sex: M : 1990 Age: 29y 19:16 03/09/2020 Two (2) unsuccessful IV access attempts including the right antecubital space. --19:26 03/09/20 Phillip Drummond RN Checked patient name and birthdate: patient confirmed. Blood samples drawn by [employer]. (1909). Checked patient name and birthdate: patient [...] --23:56 03/09/20 Bean Peace RN.DISPOSITION / DISCHARGE [place] Coma Scale: 15- eyes open- spontaneous (4); best verbal response- oriented (5); best motor response- obeys commands (6). Condition at departure: improved. No learning barriers present. Reviewed referral to family practice and a project economist for followup. Reviewed need for increased fluid intake. Activity restrictions (rest) reviewed. Patient verbalized understanding. Written instructions provided in Lebanese. The patient was discharged home. He left [...] Peace RN. 4 Clinical Report - Nurses [facility] Emergency Department [address] [place] [address] Phone #: [phone]- [phone] 03/09/2020 17:13 [id number] Sex: M : 1990 Age: 29yLocked/Released at 03/10/2020 00:45 by Bean Peace RN Name Value Range Interpretation Code Description Data Giovana rce(s) Supporting Document(s) ID Date Data Source [id number] 03/09/2020 05:46:00 PM EDT [facility] 1 Clinical Report - Physicians/Mid Levels [facility] Emergency Department [address] [place] [address] Phone #: ext- [phone] 03/09/2020 17:13 Patient: NICK TRUJILLO Sex: M : 1990 Age: 29y Time Seen: 18:33 03/09/2020. Historian- patient. Disposition decision: 00:11 03/10/2020.HISTORY OF PRESENT ILLNESS Chief Complaint: ABDOMINAL PAIN. (29 year old morbuidly obese patient with abdominal pain past few weeks. had a cholecystectomy a nd later umbilical hernia repair done also at [facility]. has an appointment with f/u [...] Repair. 2 Clinical Report - Physicians/Mid Levels [facility] Emergency Department [address] [place] [address] Phone #: ext- [phone] 03/09/2020 17:13 Patient: [...] sounds 3 Clinical Report - Physicians/Mid Levels [facility] Emergency Department [address] [place] [address] Phone #: ext- [phone] 03/09/2020 17:13 Patient: NICK TRUJILLO Sex: M [...] Exam CT ABD //T// PELV W/[place] [address] PHONE: [phone] FAX: [phone] Name .................. : GAVIOTA Madison Acct Number.................. : [id number] ROOM. ... .............. : TR-08 MR Number ................... : [id number] Stay type ............. : E/R Discharge Date......... ... : Admit Date ......... : 03/09/20 Admit Phys .................... : TALIA Madison Date of ....... : 1990 Family Phys ................... : HESTER HARD Phone .................. : [phone] Age ................................ : 29 Film# .................. .:[id number] Sex ................................. : M Unsigned transcriptions are [...] thickening. 4 Clinical Report - Physicians/Mid Levels [facility] Emergency Department [address] [place] [address] Phone #: ext- [phone] 03/09/2020 17:13 Patient: NICK TRUJILLO Sex: M [...] mL: 75 [address] [place] [address] PHONE: [phone] FAX: [phone] Name .................. : GAVIOTA Madison Acct Number.................. : [id number] ROOM. ................. : TR-08 MR Number ................... : [id number] Stay type ............. : E/R Discharge Date......... ... : Admit Date ......... : 03/09/20 Admit Phys .................... : TALIA Madison Date of ....... : 1990 Family Phys ................... : MIR HARD Phone .................. : [phone] Age ..................... ........... : 29 Film# .................. .:[id number] Sex ................................. : M Unsigned transcriptions are preliminary reports and do not represent a medical or legal document CT ABD Reason(s): Abdominal Pain Method of administration: Intravenous Electronically Reviewed and Signed By DCTNAME , SIGNDATE, [facility] Transcribe Initials: GUCCI , Transcribe Date: 03/09/20 23:30, Dictation Date: <<REPDIST>> Page 2of 2ISOVUE 370 CONTRAST (PER ML): (KAVITA: 03/09/2020 20:43) ( MsgRcvd 03/09/2020 21:11) CanceledPREGNANCY STATUS: NA MALE ISOLATION n 5 Clinical Report - Physicians/Mid Levels [facility] Emergency Department [address] [place] [address] Phone #: ext- [phone] 03/09/2020 17:13 Patient: [...] Male GFR Interprentation 20-49 yrs >60 mL/min Mkwrby67-76 yrs >56 mL/min Normal 60-69 yrs >49 mL/min Normal 70-79yrs>42 mL/min Normal 80 and above >35 mL/min Normal Female GFRInterpretation 20-39 yrs >60 mL/min Normal 40-49 yrs >58 mL/minNormal 50-59 yrs >51 mL/min Normal 60-69 yrs >45 mL/min Xigqtu80-69 yrs >39 mL/min Normal 80 and above [...] 51.0) 6 Clinical Report - Physicians/Mid Levels [facility] Emergency Department [address] [place] [address] Phone #: ext- [phone] 03/09/2020 17:13 Patient: [...] has an appointment with his surgeon at [facility] next week, advised to keep the appointment, return if any symptoms. Patient/family counseled. Old medical records ordered. Disposition: Discharged home in good and improved cond ition (00:11 Mar 10 2020). Condition: stable. 7 Clinical Report - Physicians/Mid Levels [facility] Emergency Department [address] [place] [address] Phone #: ext- [phone] 03/09/2020 17:13 Patient: NICK TRUJILLO [facility]#: [id number] Sex: M : 1990 Age: 29yCLINICAL IMPRESSION [...] Name Value Range Interpretation Code Description Data [facility](s) Supporting Document(s) ID Date Data Source [id number] 03/09/2020 07:33:00 PM EDT [facility] Name Value Range Interpretation Code Description Data [facility](s) Supporting Document(s) [facility] COL[facility] yellow NORMAL: Yellow [facility] CLARITY clear NORMAL: Clear [facility] Specific gravity of Urine by Test strip 1.010 1.001 - 1.030 [facility] pH 7 5 - 9 [facility] al Glucose [Mass/volume] in Urine by Test strip NORM NORMAL: Negat rebekah [facility] Bilirubin.total [Presence] in Urine by Test strip NEG NORMAL: Negative [facility] Ketones [Presence] in Urine by Test strip NEG NORMAL: Negative [facility] Protein [Mass/volume] in Urine by Test strip NEG NORMAL: Negat rebekah [facility] Nitrite [Presence] in Urine by Test strip NEG NORMAL: Negative [facility] BLOOD NEG NORMAL: Negative [facility] Leukocyte esterase [Presence] in Urine by Test strip NEG MILAGROS L: Negative [facility] Urobilinogen [Mass/volume] in Urine by Test strip NOR less vanessa n 1.0 mg/dL [facility] MICROSCOPIC Not Indicate [facility] ospital ID Date Data Source [id number] 03/09/2020 07:38:00 PM EDT [facility] Name Value Range Interpretation Code Description Data Giovana rce(s) Supporting Document(s) COMPREHENSIVE METABOLIC PANEL [facility] COMPREHENSIVE METABOLIC PANEL Sodium [Moles/volume] in Serum or Plasma 142 mEq/L 134 - 153 [facility] Potassium [Moles/volume] in Serum or Plasma 3.8 mEq/L 3.6 - 5.0 [facility] Chloride [Moles/volume] in Serum or Plasma 106 mEq/L 98 - 107 [facility] Carbon dioxide, total [Moles/volume] in Serum or Plasma 21 MEQ/L 22 - 30 L [facility] Glucose [Mass/volume] in Serum or Plasma 118 MG/DL 65 - 110 H [facility] BUN 11 MG/DL 7 - 21 [facility] al Creatinine [Mass/volume] in Serum or Plasma 0.9 MG/DL 0.7 - 1.5 [facility] BUN/CREAT 12 8 - 27 [facility] Protein [Mass/volume] in Serum or Plasma 7.8 G/DL 6.3 - 8.2 [facility] Albumin [Mass/volume] in Serum or Plasma 4.4 G/DL 3.9 - 5.0 [facility] Globulin [Mass/volume] in Serum by calculation 3.4 GM/DL 2.4 - 3.2 H [facility] A/G RATIO 1.3 0.8 - 2.0 [facility] Calcium [Mass/volume] in Serum or Plasma 9.2 MG/DL 8.4 - 10.2 [facility] Bilirubin.total [Mass/volume] in Serum or Plasma <0.7 MG/DL 0.2 - 1.3 [facility] Alkaline phosphatase [Enzymatic activity/volume] in Serum or Plasma 98 U/L 38 - 126 [facility] Aspartate aminotransferase [Enzymatic activity/volume] in Serum or Plasma 20 U/L 5 - 40 [facility] Alanine aminotransferase [Enzymatic activity/volume] in Seru m or Plasma 32 U/L 7 - 56 [facility] Anion gap 3 in Serum or Plasma 15.0 mmol/L 8.0 - 16.0 [facility] AGE 29 yrs [facility] NON-AA GFR >60 mL/min [facility] AFR AMER GFR >60 mL/min [facility] Male GFR In terprentation [...] >32 mL/min Normal ID Date Data Source [id number] 03/09/2020 07:35:00 PM EDT [facility] Name Value Range Interpretation Code Description Data Giovana rce(s) Supporting Document(s) Lipase [Enzymatic activity/volume] in Serum or Plasma 39 U/L 13 - 60 [facility] ID Date Data Source [id number] 03/09/2020 07:19:00 PM EDT [facility] Name Value Range Interpretation Code Description Data Giovana rce(s) Supporting Document(s) Lactate [Moles/volume] in Serum or Plasma 3.4 MMOL/L 0.2 - 2.2 H [facility] ID Date Data Source [id number] 03/09/2020 07:17:00 PM EDT [facility] Name Value Range Interpretation Code Description Data Giovana rce(s) Supporting Document(s) CBC W/AUTOMATED DIFF [facility] COMPLETE BLOOD COUNT Leukocytes [#/volume] in Blood by Automated count 11.1 10^3/uL 4.2 - 11.0 H [facility] Erythrocytes [#/volume] in Blood by Automated count 5.71 10^6/uL 4. 50 - 6.30 [facility] Hemoglobin [Mass/volume] in Blood 16.4 g/dL 14.0 - 16.0 H [facility] Hematocrit [Volume Fraction] of Blood by Automated count 51.4 % 4 1.0 - 51.0 H [facility] Erythrocyte mean corpuscular volume [Entitic volume] by Auto mated count 90.0 fL 80.0 - 94.0 [facility] Erythrocyte mean corpuscular hemoglobin [Entitic mass] by Automated count 28.7 pg 27.0 - 34.0 [facility] Erythrocyte mean corpuscular hemoglobin concentration [Mass/volume] by Automated count 31.9 g/dL 31.0 - 36.0 [facility] Erythrocyte distribution width [Ratio] by Automated count 14.1 % 11.5 - 14.8 [facility] Platelets [#/volume] in Blood by Automated count 209 10^3/uL 150 - 45 0 [facility] Platelet mean volume [Entitic volume] in Blood by Automated count 9.0 fL 7.4 - 10.4 [facility] Neutrophils/100 leukocytes in Blood by Automated count 71.7 % 37. 0 - 80.0 [facility] Lymphocytes/100 leukocytes in Blood by Manual count 16.6 % 25.0 - 40.0 L [facility] Monocytes/100 leukocytes in Blood by Automated count 5.9 % 3.0 - 8.0 [facility] Eosinophils/100 leukocytes in Blood by Automated count 5.1 % 0.0 - 7.0 [facility] Basophils/100 leukocytes in Blood by Automated count 0.3 % 0.0 - 2.0 [facility] %IG 0.4 % 0.0 - 0.0 [facility] %NRBC 0.0 % 0.0 - 0.0 [facility] al Neutrophils [#/volume] in Blood by Automated count 7.98 10^3/uL 2.00 - 6.90 H [facility] Lymphocytes [#/volume] in Blood by Automated count 1.85 10^3/uL 0.60 - 3.40 [facility] Monocytes [#/volume] in Blood by Automated count 0.66 10^3/uL 0.00 - 0.90 [facility] Eosinophils [#/volume] in Blood by Automated count 0.57 10^3/uL 0.00 - 0.70 [facility] Basophils [#/volume] in Blood by Automated count 0.03 10^3/uL 0.00 - 0.20 [facility] #IG 0.04 10^3/uL 0.00 - 0.10 [facility] ospital #NRBC 0.00 10^3/uL 0.00 - 0.00 [facility]spital MANUAL DIFF NOT INDICATED [facility] RBC MORPH NOT INDICATED [facility] spital ID Date Data Source [id number] 02/23/2020 11:36:00 AM EDT [facility] ([facility]) Name Value Range Interpretation Code Description Data Giovana rce(s) Supporting Document(s) CBC W/Automated Diff Laboratory test result [facility]) Is patient fasting? N WBC 10.6 10^3/uL 4.2-11.0 [facility] Is [facility] fasting? N RBC 5.78 10^6/uL 4.50-6.[address] [facility]) Is patient fasting? N Hematocrit 51.1 % 41.0-51.0 Above high normal [facility] Is patient fasting? N Hemoglobin 16.3 g/dL 14.0-16.0 Above high normal [facility] Is patient fasting? N MCV 88.4 fL 80.0-94.0 [facility] ([facility]) Is patient fasting? N RDW 13.5 % 11.5-14.8 [facility] ([facility]) Is patient fasting? N MCH 28.2 pg 27.0-34.0 [facility] ([facility]) Is patient fasting? N MCHC 31.9 g/dL 31.0-36.0 [facility] ([facility]) Is patient fasting? N Platelets 262 10^3/uL 150-450 [facility] ([facility]) Is patient fasting? N Neut 65.2 % 37.0-80.0 [facility] ([facility]) Is patient fasting? N Lymph 18.6 % 25.0-40.0 Below low normal [facility] ( [facility]) Is patient fasting? N MPV 9.6 fL 7.4-10.4 [facility] ([facility]) Is patient fasting? N Eos 7.6 % 0.0-7.0 Above high normal [facility] ([facility]) Is patient fasting? N [place] 7.6 % 3.0-8.0 [facility] ([facility]) Is patient fasting? N Baso 0.5 % 0.0-2.0 [facility] ([facility]) Is patient fasting? N %NRBC 0.0 % 0.0-0.0 [facility] ([facility]) Is patient fasting? N %Ig 0.5 % 0.0-0.0 Above high normal [facility] ([facility]) Is patient fasting? N #Lymph 1.97 10^3/uL 0.60-3.40 [facility] ([facility]) Is patient fasting? N #Neut 6.92 10^3/uL 2.00-6.90 Above high normal [facility] ([facility]) Is patient fasting? N #[place] 0.81 10^3/uL 0.00-0.90 [facility] ([facility]) Is patient fasting? N #Eos 0.81 10^3/uL 0.00-0.70 Above high normal [facility] ([facility]) Is patient fasting? N #Baso 0.05 10^3/uL 0.00-0.20 [facility] ([facility]) Is patient fasting? N #Ig 0.05 10^3/uL 0.00-0.10 [facility] ([facility]) Is patient fasting? N Manual Diff Laboratory test result [facility] ([facility]) Is patient fasting? N RBC Morph Laboratory test result [facility] ([facility]) Is patient fasting? N #NRBC 0.00 10^3/uL 0.00-0.00 [facility] ([facility]) Is patient fasting? N ID Date Data Source [id number] 02/23/2020 11:36:00 AM EDT [facility] ([facility]) Name Value Range Interpretation Code Description Data Giovana rce(s) Supporting Document(s) Hemoglobin A1c/Hemoglobin.total in Blood 4.9 % 4.4-6.1 [facility] ([facility]) Is patient fasting? N Topiramate [Mass/volume] in Serum or Plasma 7.3 ug/mL 2.0-25.0 [facility] ([facility]) Is patient fasting? N ID Date Data Source [id number] 02/23/2020 11:36:00 AM EDT [facility] ([facility]) Name Value Range Interpretation Code Description Data Giovana rce(s) Supporting Document(s) Comprehensive Metabo Laboratory test result [facility] ([facility]) Is patient fasting? N Chloride 103 meq/L 98-107 [facility] ([facility]) Is patient fasting? N Sodium 141 meq/L 134-153 [facility] ([facility]) Is patient fasting? N Potassium 3.8 meq/L 3.6-5.0 [facility] Is patient fasting? N Co2 25 meq/L 22-30 [facility] Is patient fasting? N BUN 8 mg/dL 7-21 [facility] ([facility]) Is patient fasting? N Glucose 86 mg/dL 65-110 [facility] Is patient fasting? N Creatinine 0.9 mg/dL 0.7-1.5 [facility] ([facility]) Is patient fasting? N Total Protein 7.8 g/dL 6.3-8.2 [facility] ([facility]) Is patient fasting? N BUN/Creat 9 8-27 [facility] ([facility]) Is patient fasting? N A/G Ratio 1.2 0.8-2.0 [facility] Is patient fasting? N Albumin 4.3 g/dL 3.9-5.0 [facility] ([facility]) Is patient fasting? N Globulin 3.5 GM/DL 2.4-3.2 Above high normal [facility] ([facility]) Is patient fasting? N Calcium 9.4 mg/dL 8.4-10.2 [facility] ([facility]) Is patient fasting? N Alkaline Phos 101 U/L 38-126 [facility] ([facility]) Is patient fasting? N Total Bili Laboratory test result 0.2-1.3 [facility] ([facility]) Is patient fasting? N Sgot/Ast 19 U/L 5-40 [facility] ([facility]) Is patient fasting? N SGPT/Alt 35 U/L 7-56 [facility] ([facility]) Is patient fasting? N Anion Gap 13.0 mmol/L 8.0-16.0 [facility] ([facility]) Is patient fasting? N Age 29 yrs [facility] ([facility]) Is patient fasting? N Non-Aa GFR Laboratory test result [facility]) Is patient fasting? N Afr Amer GFR Laboratory test result [facility]) Is patient fasting? N ID Date Data Source [id number] 02/23/2020 11:36:00 AM EDT [facility] ([facility]) Name Value Range Interpretation Code Description Data Giovana rce(s) Supporting Document(s) Thyrotropin [Units/volume] in Serum or Plasma 1.92 uIU/mL 0.47-5.01 [facility] ([facility]) Is patient fasting? N Thyroxine (T4) free [Mass/volume] in Serum or Plasma 0.85 ng/dL 0.93-1.70 Below low normal [facility] ([facility]) Is patient fasting? N ID Date Data Source [id number] 02/23/2020 11:36:00 AM EDT [facility] ([facility]) Name Value Range Interpretation Code Description Data Giovana rce(s) Supporting Document(s) Free [place] Lt Chains,S 31.4 mg/L 3.3-19.4 Above high normal [facility] ([facility]) Is patient fasting? N [place]/Lambda Ratio,S 1.03 NA 0.26-1.65 [facility] ([facility]) Is patient fasting? N Free Lambda Lt Chains,S 30.5 mg/L 5.7-26.3 Above high normal [facility] ([facility]) Is patient fasting? N ID Date Data Source [id number] 02/29/2020 07:03:00 AM EDT [facility] Name Value Range Interpretation Code Description Data Giovana rce(s) Supporting Document(s) Topiramate [Mass/volume] in Serum or Plasma 7.3 ug/mL 2.0-25.0 [facility] This test was developed and its performa nce characteristicsdetermined by [facility]. It has not been cleared or approvedby the Food and Drug Administration. Detection Limit = 1.0 ID Date Data Source [id number] 02/26/2020 06:44:00 AM EDT [facility] Name Value Range Interpretation Code Description Data Giovana rce(s) Supporting Document(s) Immunoglobulin light chains.kappa.free [Mass/volume] in Seru m 31.4 mg/L 3.3-19.4 H [facility] Immunoglobulin light chains.lambda.free [Mass/volume] in Serum or Plasma 30.5 mg/L 5.7-26.3 H [facility] Immunoglobulin light chains.kappa.free/I mmunoglobulin light chains.lambda.free [Mass Ratio] in Serum 1.03 NA 0.26-1.65 [facility] ID Date Data Source [id number] 02/23/2020 11:36:00 AM EDT [facility] ([facility]) Name Value Range Interpretation Code Description Data Giovana rce(s) Supporting Document(s) Thyrotropin [Units/volume] in Serum or Plasma Laboratory test result [facility] Thyroxine (T4) free [Mass/volume] in Serum or Plasma Laboratory alok t result [facility] ([facility]) Immunoglobulin light chains.kappa.free [Mass/volume] i n Serum Laboratory test result [facility] ([facility]) ID Date Data Source [id number] 02/23/2020 04:35:00 PM EDT [facility] Name Value Range Interpretation Code Description Data Giovana rce(s) Supporting Document(s) Thyroxine (T4) free index in Serum or Plasma by calculation 0.85 NG/DL 0.93 - 1.70 L [facility] ID Date Data Source [id number] 02/23/2020 04:33:00 PM EDT [facility] Name Value Range Interpretation Code Description Data Giovana rce(s) Supporting Document(s) Thyrotropin [Units/volume] in Serum or Plasma by Detec tion limit <= 0.05 mIU/L 1.92 uIU/mL 0.47 - 5.01 [facility] ID Date Data Source [id number] 02/23/2020 04:19:00 PM T [facility] Name Value Range Interpretation Code Description Data Giovana rce(s) Supporting Document(s) CBC W/AUTOMATED DIFF [facility] COMPLETE BLOOD COUNT Leukocytes [#/volume] in Blood by Automated count 10.6 10^3/uL 4.2 - 11.0 [facility] Erythrocytes [#/volume] in Blood by Automated count 5.78 10^6/uL 4. 50 - 6.30 [facility] Hemoglobin [Mass/volume] in Blood 16.3 g/dL 14.0 - 16.0 H [facility] Hematocrit [Volume Fraction] of Blood by Automated count 51.1 % 4 1.0 - 51.0 H [facility] Erythrocyte mean corpuscular volume [Entitic volume] by Auto mated count 88.4 fL 80.0 - 94.0 [facility] Erythrocyte mean corpuscular hemoglobin [Entitic mass] by Automated count 28.2 pg 27.0 - 34.0 [facility] Erythrocyte mean corpuscular hemoglobin concentration [Mass/volume] by Automated count 31.9 g/dL 31.0 - 36.0 [facility] Erythrocyte distribution width [Ratio] by Automated count 13.5 % 11.5 - 14.8 [facility] Platelets [#/volume] in Blood by Automated count 262 10^3/uL 150 - 45 0 [facility] Platelet mean volume [Entitic volume] in Blood by Automated count 9.6 fL 7.4 - 10.4 [facility] Neutrophils/100 leukocytes in Blood by Automated count 65.2 % 37. 0 - 80.0 [facility] Lymphocytes/100 leukocytes in Blood by Manual count 18.6 % 25.0 - 40.0 L [facility] Monocytes/100 leukocytes in Blood by Automated count 7.6 % 3.0 - 8.0 [facility] Eosinophils/100 leukocytes in Blood by Automated count 7.6 % 0.0 - 7.0 H [facility] Basophils/100 leukocytes in Blood by Automated count 0.5 % 0.0 - 2.0 [facility] %IG 0.5 % 0.0 - 0.0 [facility] %NRBC 0.0 % 0.0 - 0.0 [facility] al Neutrophils [#/volume] in Blood by Automated count 6.92 10^3/uL 2.00 - 6.90 H [facility] Lymphocytes [#/volume] in Blood by Automated count 1.97 10^3/uL 0.60 - 3.40 [facility] Monocytes [#/volume] in Blood by Automated count 0.81 10^3/uL 0.00 - 0.90 [facility] Eosinophils [#/volume] in Blood by Automated count 0.81 10^3/uL 0.00 - 0.70 H [facility] Basophils [#/volume] in Blood by Automated count 0.05 10^3/uL 0.00 - 0.20 [facility] #IG 0.05 10^3/uL 0.00 - 0.10 [facility] ospital #NRBC 0.00 10^3/uL 0.00 - 0.00 [facility]spital MANUAL DIFF NOT INDICATED [facility] RBC MORPH NOT INDICATED [facility] ID Date Data Source [id number] 02/23/2020 04:14:00 PM EDT [facility] Name Value Range Interpretation Code Description Data Giovana rce(s) Supporting Document(s) COMPREHENSIVE METABOLIC PANEL [facility] COMPREHENSIVE METABOLIC PANEL Sodium [Moles/volume] in Serum or Plasma 141 mEq/L 134 - 153 [facility] Potassium [Moles/volume] in Serum or Plasma 3.8 mEq/L 3.6 - 5.0 [facility] Chloride [Moles/volume] in Serum or Plasma 103 mEq/L 98 - 107 [facility] Carbon dioxide, total [Moles/volume] in Serum or Plasma 25 MEQ/L 22 - 30 [facility] Glucose [Mass/volume] in Serum or Plasma 86 MG/DL 65 - 110 [facility] BUN 8 MG/DL 7 - 21 [facility] al Creatinine [Mass/volume] in Serum or Plasma 0.9 MG/DL 0.7 - 1.5 [facility] BUN/CREAT 9 8 - 27 [facility] Protein [Mass/volume] in Serum or Plasma 7.8 G/DL 6.3 - 8.2 [facility] Albumin [Mass/volume] in Serum or Plasma 4.3 G/DL 3.9 - 5.0 [facility] Globulin [Mass/volume] in Serum by calculation 3.5 GM/DL 2.4 - 3.2 H [facility] A/G RATIO 1.2 0.8 - 2.0 [facility] Calcium [Mass/volume] in Serum or Plasma 9.4 MG/DL 8.4 - 10.2 [facility] Bilirubin.total [Mass/volume] in Serum or Plasma <0.7 MG/DL 0.2 - 1.3 [facility] Alkaline phosphatase [Enzymatic activity/volume] in Serum or Plasma 101 U/L 38 - 126 [facility] Aspartate aminotransferase [Enzymatic activity/volume] in Serum or Plasma 19 U/L 5 - 40 [facility] Alanine aminotransferase [Enzymatic activity/volume] in Seru m or Plasma 35 U/L 7 - 56 [facility] Anion gap 3 in Serum or Plasma 13.0 mmol/L 8.0 - 16.0 [facility] AGE 29 yrs [facility] al NON-AA GFR >60 mL/min [facility] ital AFR AMER GFR >60 mL/min [facility] Male GFR In terprentation [...] >32 mL/min Normal ID Date Data Source [id number] 02/23/2020 04:05:00 PM EDT [facility] Name Value Range Interpretation Code Description Data Giovana rce(s) Supporting Document(s) Hemoglobin A1c/Hemoglobin.total in Blood 4.9 % 4.4 - 6.1 [facility] {A1]{HB] ID Date Data Source [id number] 02/10/2020 09:57:30 AM EDT [facility] NT INFORMATIONPatient MRN Name Date of Age Gend*PT [id number] Nick Trujillo 1990 29 years M SDCPT Location Admission Date/Time Visit ID [facility] 0851 --- --- EPI ID [facility] Admitting Provider [id number] Robert Tamayo MD([id number]) [place] [address] OPERATIVE REPORT OPNAME: NICK TRUJILLO#: [id number] #: [id number] ADMISSION DATE: 02/09/2020DOB: 1990 SEX: M PT TYPE: H SURACCT #: [id number] CARE PHYSICIAN: ADITYA HELLERDATE OF OPERATION: 020PREOPERATIVE [...] reversal of general anesthesia.SANIA MENDOZA/QUEENIE Job #: [id number] DOC #: [id number] Name Value Range Interpretation Code Description Data Giovana rce(s) Supporting Document(s) ID Date Data Source [id number] 02/09/2020 02:36:21 PM EDT [facility] SPEC EXP DATE 02/12/2020PATI ENT ABO/Rh A NEGATIVEANTIBODY SCREEN NEGATIVETESTING SITE PERFORMED AT [address] [place] [address] [id number] BANK COMMENT BLOOD TYPE CONFIRMED. Name Value Range Interpretation Code Description Data Giovana rce(s) Supporting Document(s) TYPE AND SCREEN [facility] ID Date Data Source [id number] 02/08/2020 07:24:25 AM EDT [facility] NT INFORMATIONPatient MRN Name Date of Age Gend*PT [id number] Nick Trujillo 1990 29 years M OPPT Location Admission Date/Time Visit ID Attending Provider --- --- --- Robert Tamayo MD([id number]) EPI ID CSN Admitting Provider [id number] ---OUTPATIENT / OBSERVATIONAL SURGICAL OR INVASIVE PROCEDUREName: Nick Trujillo : 1990 Sex: male Care Provider[facility] Physician: Dr. Tamayo.HISTORY OF PRESENT ILLNESS: 29 [...] (eight)hours as needed for pain Historical Provider, MDlevETIRAcetam (KEPPRA) 500 MG tablet Take 500 mg by mouth 2 (two) times a dayHistorical Provider, MDlisinopril-hydrochlorothiazide (PRINZIDE,ZESTORETIC) 20-25 MG per tablet Take 1tablet by mouth daily Historical Provider, MDmethocarbamol (ROBAXIN) 750 MG tablet Take 750 mg by mouth 2 (two) times a dayas needed (for pain) Historical Provider, MDmirtazapine (REMERON) 15 MG tablet Take 15 mg [...] 2 (two) times a dayHistorical Provider, Umeclidinium [place] (INCRUSE ELLIPTA) 62.5 MCG/INH AEPB Inhale 1 [...] thyromegaly. No carotid bruits.MENTAL / NEUROLOGICAL STATUS: [id number]: Clear to auscultation. No wheezes, rhonchi or [...] parts of this document, were dictated using Graffiti software. A reasonable attempt at proofreading has beenmade to minimize errors. Please call with any questions or corrections.* Name Value Range Interpretation Code Description Data Giovana rce(s) Supporting Document(s) ID Date Data Source [id number] 02/04/2020 12:14:57 PM EDT [facility] Name Value Range Interpretation Code Description Data Giovana rce(s) Supporting Document(s) EKG [facility] JFSFOe5wLrZRRfEds1RzKwIvILBhDU2uhal5I5J4eYCnZ6FctGHdy8nrQ5XdQ9HpBMDmAENJGG0WbCHf jb2 [file] vbqoEtYkj5IzJixadxuGyt7rrlqoeiAlF8y7d1QcCj 1so9b0u3M1YHrRnl5w0t5S86CjHsi3i5a9Gi7Txyzu2h6c3Fx6KGwqyP8Z7hVi/0sJdc4Hi3/a/Oji/P kylc6mb5/P+cynXg78iVYKQtWIxlx50EE8/SnBqd9Vh548xjHqasuCMsJ0hRMSDw3YDPNUfs3IVeb5Xx MYGRd3VMhr1icYZFJhbe8sNMphnrHkVGlDu04fYsg0 vWHMHdzpZ9kBH/uxTExNE/uxTUyNE/uxTkzNE/kiZ3lIYFxvETuSPQomPQuKOWm/VmUxK3/aqYaK/Vgq pqaK/dgqpsaK/VgrpuaK/dgrpgaL/VgspiaL/dgspkaL/VgtpmaL/dgtpoaL/VgupqaL/dgupsaL/Vgv puaL/dgvpgaM/VgwpiaM/dgwpkaM/VgxpmaMjX/1na CFP+1UU8Z+sUnUV7K+wSaIj4D+0JuGy0W+UYbWb2C+cRwWe6H+oStGy1C+4GrGx1gi15hQ0/ef27ocT/ Go3FhuV/Vl58ufWYSn1HpkZZWe49apAtPy7ZjmUlJq10kuYfQb1LlbJcYw94tqI/Oj8SwiF/Rm95giHB Oj9WlzXOEd93xfYtTr4HooDuCp34pnPfEd+ZiaPvZj +5gaP/Zj/ZiaP/Zj/6tuYIYtEJwjQKPnV5byJcPhJCltIuVpF9vaCqFhJQxmQxNjY0hqW/ZjDZmaQ/Zj D7naQ/4dQ9agP/6pF5hzY/8xV1gmY/8oT2iaR/0kQ4cdN/5yH6glK/5uD3iwN/4cN6lxX/6eJ6dgW/5j D7naQ/7jM4wxS/8nI3uyU/3hC4peT/7vH3kpR/5jD7 naQ/96Y5R6yB19pQhGio/aoymbND/tLNs0v/c5WwLnw2owcKH03xCXoHlh4SqyAfHjH2osY/8mS4axK/ 6uP3wvN/5fW2wjY/0sK3eqT/6hW0cjO/1oP0ffC/6nR9xdR/7aS1mxC/2vK7qcP/4pT2muD/2tT3geA/ 0nT7kqB/8gB6jtR/4iI0ayC/1jO8bmP/6bF2mjR/5j D7naQ/4cF6nuL/0xO5pdN/4yU8bfU/3sT3qqF/1uA2qlZ/7tO1kiI/0oI7rzL/0qI1xdE/4mO7jeC/5j D7naQ/3qF3otU/9dO9ehZ/4aZ9pyN/9yV3jfY/5hK9bdE/3bC1ljC/5jD/CvAle5TL/K9UIcECnPkaWf CmqfU0hpihTxLL0FezR6ZawoCyCjpEq0z6S4mr6tzE 2rx2ul95N7FjhAgO9J10K0BU2p91C7NrgVxW6T05K6RD6f82P7JqpCsF5C49K5TK5d93D6BcwHwL1r11 Y6VI1k57Z7VcrUcE6q60W0SY0r16Q3TzecfW3D0pI2RIEsX1K0C5bxoE0Z3jG0TKQoK1O4EQQJzh/Q9g rqg5G0xXRwvM3w7CzyX8c0FddV7r2P3sY1L9U7gf9N sN4lo1ZpN3pw4Reuubv7KlguJG5VvzvJ41OkwnE6uHSntM2p1KbmH3f9DwqL5g8V3bqbv4S7IC1O2VEG bc/H4btku3M9NN0D7UBSbo/M4rbvr8Z7PS2O9DVhsn/R7aztj0X7ZE7H8tGhdg/Z2piax3D9HY3W6nRw bc/P7ujtg5Z6OUf6KWyfr1C0DdMQ1ttIY2O9dQFYAz mVUONczC9Z9fnGauRfh+vExtlgyD5Q+2a8k5u4yPVCAwgccT6F+8d3i8o3nDJmvl5ArucSH5UbpgfW2S xcWiNJU7QPHKGMibTrPLsgFjiISOesAKyTjOUErqkdKhWZhVAUHLTqnWvUTmhUSmdGCMeNkbjwyxwyTs UPjJfhwNHA1KsaotJZt9IFfVSUufOfOJodRvzQC3kz WicVzdJVg6kLWuYKhKIsLSAtrTiGKvmGY6xBXMhEgmdpsurwAkbFvWekuCqP8P3zMrzIn4KJhFZP1vSq uEdoTfjJBTvdCpcRu24Zuu83vTIi4Rrg8Y2+MOISÉS/2iJsnw7EMyYqc7e7jqTok0+6HHR7JGdxoG2L8XuT [file] BHXpRgpdVz4lgWD8WTQoYwnPVo8Kf3QunvA3jfAoOhW1IzF8GmJnPQ3C ID Date Data Source [id number] 02/04/2020 12:06:53 PM EDT [facility] NT INFORMATIONPatient MRN Name Date of Age Gend*PT [id number] Nick Trujillo 1990 29 years M OPPT Location Admission Date/Time Visit ID Attending Provider --- --- --- Robert Tamayo MD([id number]) EPI ID CSN Admitting Provider [id number] ---OUTPATIENT / OBSERVATIONAL SURGICAL OR INVASIVE PROCEDUREName: [...] tablet Take 10 mg by mouth daily HistoricalProvider MDdesvenlafaxine (PRISTIQ) 100 MG 24 hr tablet Take 100 mg by mouth dailyHistorical Provider, MDdocusate sodium 100 MG CAPS Take 1 capsule (100 mg total) by mouth 2 (two) timesa day 12/25/18 Jeff Barber, NPdoxycycline (VIBRAMYCIN) 50 MG capsule Take 50 mg by mouth daily HistoricalProvirandy MDformoterol (PERFOROMIST) 20 MCG/2ML nebulizer solution Take [...] 2 (two) times a dayHistorical Provider, Umeclidinium [place] (INCRUSE ELLIPTA) 62.5 MCG/INH AEPB Inhale 1 [...] thyromegaly. No carotid bruits.MENTAL / NEUROLOGICAL STATUS: [id number]: Clear to auscultation. No wheezes, rhonchi or [...] parts of this document, were dictated using [employer] speaking software. A reasonable attempt at proofreading has beenmade to minimize errors. Please call with any questions or corrections.* Name Value Range Interpretation Code Description Data [facility] Document(s) ID Date Data Source [id number] 02/04/2020 05:52:41 PM EDT [facility] Name Value Range Interpretation Code Description Data [facility] Supporting Document(s) SODIUM 140 mmol/L (136-145) [facility] POTASSIUM 4.0 mmol/L (3.6-5.2) [facility] CHLORIDE 106 mmol/L (100-108) [facility] CO2 25 mmol/L (22-31) [facility] ANION GAP 9 mmol/L (7-16) [facility] UREA NITROGEN 13 mg/dL (7-24) [facility] CREATININE 1.08 mg/dL (0.80-1.30) [facility] BUN/CREAT RATIO 12.0 RATIO (10.0-20.0) [facility] GLUCOSE 100 mg/dL (70-99) H [facility] CALCIUM 9.2 mg/dL (8.4-10.2) [facility] GFR >60 ml/min/1.73m2 (>59) [facility] GFR ( AMER) >60 ml/min/1.73m2 (>59) [facility] GFR INTERPRETATION [facility] --NORMAL KIDNEY FUNCTION OR MILD DISEASE - GFR >OR= 60CHRONIC KIDNEY DISEASE - GFR 15 - 59RENAL FAILURE - GFR <15 Est. GFR calculation based on the MDRDstudy equation, which assumes a steadystate for creatinine. Est. GFR should notbe used for medication dosing. ID Date Data Source [id number] 02/04/2020 05:35:33 PM EDT [facility] Name Value Range Interpretation Code Description Data Giovana rce(s) Supporting Document(s) WBC 9.2 10*3/uL (4.1-11.0) [facility] RBC 5.75 10*6/uL (4.60-6.10) [facility] HGB 16.6 g/dL (13.5-18.0) [facility] HCT 51.0 % (41.0-53.0) [facility] MCV 88.8 fL (80.0-95.0) [facility] MCH 28.8 pg (27.0-32.0) [facility] MCHC 32.5 g/dL (32.0-36.0) [facility] RDW 14.8 % (10.5-14.5) H [facility] PLT 233 10*3/uL (150-450) [facility] MPV 8.4 fL (7.1-10.7) [facility] ID Date Data Source [id number] 02/04/2020 09:45:00 AM EDT [facility] Name Value Range Interpretation Code Description Data Giovana rce(s) Supporting Document(s) SARS coronavirus 2 RNA [facility] This lab was ordered by [facility] and reported by [facility]. ID Date Data Source [id number] 02/05/2020 07:07:45 PM EDT [facility] Name Value Range Interpretation Code Description Data Giovana rce(s) Supporting Document(s) SARS-COV-2 TYRON [facility] Not DetectedReference range: Not Detecte d Testing was performed using the hailey(R) SARS-CoV-2 test. This test was developed and its performance characteristics determined by [employer] This test has not been FDA cleared [...] result in this assay. Performed At: [facility] [id number] Job Henson MD Ph:[phone] ID Date Data Source [id number] 01/31/2020 01:46:00 PM EDT [facility] CT A BDOMEN WO IV [...] rce(s) Supporting Document(s) ID Date Data Source [id number] 01/27/2020 11:08:00 AM EDT [facility] 1 OrderSheet [facility] Emergency Department [address] [place] [address] Phone #: ext- [phone] 01/27/2020 11:08 Patient: NCIK TRUJILLO Sex: M : 1990 Age: 29yWEIGHT:181.4 kg (M) HEIGHT:71 inches (S) BMI:55.8ALLERGIES: Dilantin, Naproxsyn, Tylenol with codeinCHIEF COMPLAINT: abdominal painDIAGNOSIS: Abdominal pain, Hernia of abdominal cavityLAB ORDERSOrder Description Priority Entered Acknowledged InitialedCBC w Diff STAT 11:14 01/27/2020 11:15 Milagros Valdez MD; Bhanu ESPINOZACMP STAT 11:14 01/27/2020 11:15 Milagros Valdez MD; Bhanu RNLactic Acid STAT 11:14 01/27/2020 11:15 Milagros Valdez MD; Bhanu RNUrinalysis (Clean STAT 11:14 01/27/2020 12:29 TerryCatch) Milagros [...] rce(s) Supporting Document(s) ID Date Data Source [id number] 01/27/2020 11:08:00 AM EDT [facility] 1 Medication Reconciliation Report [facility] Emergency Department [address] [place] [address] Phone #: ext- [phone] 01/27/2020 11:08 Patient: [...] ODT Oral, prn 2 Medication Reconciliation Report [facility] Emergency Department [address] [place] [address] Phone #: ext- [phone] 01/27/2020 11:08 Patient: NICK TRUJILLO Sex: M : 1990 Age: 29yThe source(s) of the original Home Medication information:Not obtained.The following Medications were given to the patient in the Emergency Department:None.The following Medications were prescribed to the patient:None. Name Value Range Interpretation Code Description Data Giovana rce(s) Supporting Document(s) ID Date Data Source [id number] 01/27/2020 11:08:00 AM EDT [facility] 1 Medication Administration Record [facility] Emergency Department [address] [place] [address] Phone #: ext- [phone] 01/27/2020 11:08 Patient: NICK TRUJILLO Sex: M : 1990 Age: 29yWeight: 181.4 kgHeight/Length: 71 inBMI: 55.8ALLERGIES: Dilantin, Naproxsyn, Tylenol with codeinDate/Time Medication Administered Medication Ordered Name Value Range Interpretation Code Description Data Giovana rce(s) Supporting Document(s) ID Date Data Source [id number] 01/27/2020 11:08:00 AM EDT [facility] 1 General Instructions [facility] Emergency Department [address] [place] [address] Phone #: ext- [phone] 01/27/2020 11:08 Patient: [...] instructions verbalized by patient. 2 General Instructions [facility] Emergency Department [address] [place] [address] Phone #: ext- [phone] 01/27/2020 11:08 Patient: [...] or constipation Chronic cough 3 General Instructions [facility] Emergency Department [address] [place] [address] Phone #: ext- [phone] 01/27/2020 11:08 Patient: [...] be pushed back in. 4 General Instructions [facility] Emergency Department [address] [place] [address] Phone #: [phone]- [phone] 01/27/2020 11:08 Patient: NICK TRUJILLO Sex: M [...] to the backCall 911 5 General Instructions [facility] Emergency Department [address] [place] [address] Phone #: ext- [phone] 01/27/2020 11:08 Patient: NICK TRUJILLO Sex: M : 1990 Age: 29yCall 911 if any of these occur: Severe pain, redness, or tenderness in the area near the hernia Pain worsens quickly and doesn't get better Inability to have a bowel movement or pass gas Fever of 100.4F (38C) or higher, or as directed by your healthcare provider [phone] [employer]. [address] [place] [address]. All rights reserved. This information is not intended as asubstitute for professional medical care. Always follow your healthcare professional's instructions. You have been given the following additional information: Hernia (Adult) No strenuous activity.(Electronically signed by Milagros Morse MD 01/28/2020 00:50) Name Value Range Interpretation Code Description Data Giovana rce(s) Supporting Document(s) ID Date Data Source [id number] 01/27/2020 11:08:00 AM EDT [facility] 1 Clinical Report - Nurses [facility] Emergency Department [address] [place] [address] Phone #: [phone]- [phone] 01/27/2020 11:08 Patient: NICK TRUJILLO Sex: M [...] suspected or confirmed signs of infection present. --11:147October, R.N.11:10 01/27/20. BP: 112/77. MAP: 88. HR: [...] daily. Zofran ODT Oral, as needed. --11:01/27/20 Suha OctoberGaby. Keppra Oral. --01/27/20 Suha OctoberGaby.AllergiesDilantin.Naproxsyn.Tylenol with codein. --:01/27/20 Suha OctoberCatalino 2 Clinical Report - Nurses [facility] Emergency Department [address] [place] [address] Phone #: ext- [phone] 01/27/2020 11:08 Patient: NICK TRUJILLO Sex: M : 1990 Age: 29y PROBLEMS: Renal Colic. Asthma. Hematuria. Seizure. --11:01/27/20 Alysha Borden R.N. ADDITIONAL SURGERIES: Hernia Repair. Umbilical Hernia Repair. --11:01/27/20 Alysha Borden R.N. History SOCIAL HX: Never smoker. No alcohol [...] treatment room. --11:14 01/27/20 Alysha Borden R.N.PHYSICAL [id number] 01/27/20. To room via stretcher.GENERAL / NEURO / PSYCH: Alert. Oriented X 4. Appears in no acute distress. Appears in pain.RESPIRATORY: Respirations not labored. Breath sounds within normal limits. 3 Clinical Report - Nurses [facility] Emergency Department [address] [place] [address] Phone #: ext- [phone] 01/27/2020 11:08 Patient: NICK TRUJILLO Sex: M [...] evaluation- ED physician and PA notified. --11:14 01/[facility]/20[facility] 11:16 01/27/20. Call light placed in reach. --11:16 01/27/20 Phillip Drummond RN Checked patient name and birthdate. Blood samples drawn from the left antecubital space by tech. ([id number]). --11:52 01/27/20 Phillip Drummond RN 11:43 01/27/2020 Two (2) unsuccessful IV access attempts including the left forearm. --11:53 01/27/20 Phillip Drummond RN 11:56 01/27/2020 Site #1 started via IV in the right antecubital space with an 20g angiocath, with aseptic technique and good blood return; one attempt. Saline lock flushed with 10 mL saline. --11:56 01/27/20, October, R.N. Patient transported to CT by wheelchair with biochemistry technologist. ([id number]). --12:01 01/27/20 Phillip Drummond RN Checked patient name and birthdate: patient confirmed. Clean catch urine collected; sample sent to lab for urinalys is. Specimen labeled in the presence of the patient ([id number]). Patient returned from CT by wheelchair with biochemistry technologist. ([id number]). --12:29 01/27/20 Phillip Drummond RN 11:40 01/27/20. BP: 115/81. MAP: 92. HR: 91. O2 saturation: 100% on room air. --12:49 01/27/20 Phillip Drummond RN 12:46 01/27/20. BP: 104/49. MAP: 67. HR: 90. O2 saturation: 96% on room air. --12:50 01/27/20 hPillip Drummond RN 13:28 01/27/2020 Site #1 removed upon discharge. Pressure dressing applied. --13:28 01/27/20 Jennifer Russell R.N.DISPOSITION / DISCHARGE Condition at departure: unchanged. No learning barriers present. Discharge instructions provided and reviewed with the patient. Reviewed medication(s) (continue medications from home). Reviewed fever care instructions. Patient verbalized understanding. Written instructions provided in Lebanese. The patient was discharged home and unaccompanied at time of discharge. He left ambulatory and via private vehicle. Driving (unknown). --13:30 01/27/20 Jennifer Russell R.N. 13:28 01/27/20. BP: 106/46. MAP: 66. HR: 83. RR: 20. O2 saturation: 96% on room air. Temp: 98.2 F 4 Clinical Report - Nurses [facility] [facility] [address] [place] [address] Phone #: ext- [phone] 01/27/2020 11:08 Patient: [...] rce(s) Supporting Document(s) ID Date Data Source [id number] 01/27/2020 11:08:00 AM EDT [facility] 1 Clinical Report - Physicians/Mid Levels [facility] Emergency Department [address] [place] [address] Phone #: ext- [phone] 01/27/2020 11:08 Patient: NICK TRUJILLO Sex: M [...] daily. 2 Clinical Report - Physicians/Mid Levels [facility] Emergency Department [address] [place] [address] Phone #: ext- [phone] 01/27/2020 11:08 Patient: [...] X-RAYS, AND EKG 3 Clinical Report - Physicians/[facility] Emergency Department [address] [place] [address] Phone #: ext- [phone] 01/27/2020 11:08 Patient: NICK TRUJILLO Sex: M [...] mL/min 4 Clinical Report - Physicians/Mid Levels [facility] Emergency Department [address] [place] [address] Phone #: ext- [phone] 01/27/2020 11:08 Patient: NICK TRUJILLO Sex: M : 1990 Age: 29y Male GFR Interprentation 20-49 yrs >60 mL/min Ewalpg51-08 yrs >56 mL/min Normal 60-69 yrs >49 mL/min Normal 70- 79yrs>42 mL/min Normal 80 and above >35 mL/min Normal Female GFRInterpretation 20-39 yrs >60 mL/min Normal 40-49 yrs >58 mL/minNormal 50-59 yrs >51 mL/min Normal 60-69 yrs >45 mL/min Dskkgl84-39 yrs >39 mL/min Normal 80 and above >32 mL/min NormalLactic Acid: (KAVITA: 01/27/2020 11:27) ( MsgRcvd 01/27/2020 12:10) Final results Test Result Flag [...] CT ABD //T// PELVIS W/ [place] [address] PHONE: [phone] FAX: [phone] Name .................. : GAVIOTA ROMERO Los Acct Number.................. : [id number] ROOM. ................. : TR-07 MR Number ................... : [id number] Stay type ............. : E/R Discharge Date......... ... : Admit Date ......... : 01/27/20 Admit Phys .................... : COONEYNORM Date of ....... : 1990 Family Phys ................... : HESTER HARD Phone .................. : [phone] Age ................................ : 29 Film# .................. .:[id number] Sex ................................. : M Unsigned transcriptions are preliminary reports and do not represent a medical or legal document CT ABD Reason(s): Abdominal Pain 5 Clinical Report - Physicians/Mid Levels [facility] Emergency Department [address] [place] [address] Phone #: ext- [phone] 01/27/2020 11:08 Patient: NICK TRUJILLO Sex: M [...] 370Method of administration: Intravenous [address] [place], [place] [address]PHONE: [phone] FAX: [phone] .................. : JOSEPHLUTHER ROMERO Los Acct Number.................. : [id number]. ................. : TR-07 MR Number ................... : [id number] type ............. : E/R Discharge Date......... ... :Admit Date ......... : 01/27/20 Admit Phys .................... : COONEYNORMDate of ....... : 1990 Family Phys ................... : HESTER HARDPhone .................. : [phone] Age ................................ : 29Film# .................. .:[id number] Sex ................................. : MUnsigned transcriptions are preliminary reports and do not represent a medical or legal document CT ABD Reason(s): Abdominal PainExamination dictated by CLYDE Gallego. Examination was reviewed with Cortez Rice MD, radiologist at the time of this dictation. Electronically Reviewed and Signed ByDCTNAME , SIGNDATE, GM 6 Clinical Report - Physicians/Mid Levels [facility] Emergency Department [address] [place] [address] Phone #: ext- [phone] 01/27/2020 11:08 Patient: [...] MEDICATIONS: 7 Clinical Report - Physicians/Mid Levels [facility] Emergency Department [address] [place] [address] Phone #: ext- [phone] 01/27/2020 11:08 Patient: [...] rce(s) Supporting Document(s) ID Date Data Source [id number] 01/27/2020 01:49:00 [place] [address] PHONE: [phone] FAX: [phone] Name .................. : GAVIOTA Madison Acct Number.................. : [id number] ROOM. ................. : TR- MR Number ................... : [id number] Stay type ............. : E/R Discharge Date......... ... : Admit Date ......... : 09/16 Admit Phys .................... : COONEYNORM Date of ....... : 1990 Family Phys ................... : HESTER HARD Phone .................. : [phone] Age ................................ : 29 Film# .................. .:[id number] Sex ................................. : M Unsigned transcriptions are preliminary reports and do not represent a medical or legal document CT ABD & PELVIS W/ IV ONLY [id number] COMPLETE:01/27/20 12:41 [facility] [address] Reason(s): Abdominal Pain CT SCAN OF THE [...] of administration: Intravenous [address] [place] [address] PHONE: [phone] FAX: [phone] Name .................. : GAVIOTA Madison Acct Number.................. : [id number] ROOM. ................. : TR-07 MR Number ................... : [id number] Stay type ............. : E/R Discharge Date......... ... : Admit Date ......... : 01/27/20 Admit Phys .................... : COONEYNORM Date of ....... : 1990 Family Phys ................... : HESTER HARD Phone .................. : [phone] Age ................................ : 29 Film# .................. .:[id number] Sex ................................. : M Unsigned transcriptions are preliminary reports and do not represent a medical or legal document CT ABD & PELVIS W/ IV ONLY [id number] COMPLETE:01/27/20 12:41 [facility] [address] Reason(s): Abdominal Pain Examination dictated by CLYDE Gallego. Examination was reviewed with Cortez Sinha MD, radiologist at the time of this dictation. Electronically Reviewed and Signed By CORTEZ SINHA MD , 01/27/20 13:49, [facility] Transcribe Initials: SSR, Transcribe Date: 01/27/20 12:55, Dictation Date: Copy for: 010 EMERGENCY SRV Copy for: EMERGENCY DEPT via modem Copy for: 710 MED REC Page 2 of 2 Name Value Range Interpretation Code Description Data Giovana rce(s) Supporting Document(s) ID Date Data Source [id number] 01/27/2020 12:10:00 PM EDT [facility] ([facility]) Name Value Range Interpretation Code Description Data [facility] rce(s) Supporting Document(s) Urinalysis Laboratory test result [facility]) SOURCE: Clean Catch Source Laboratory test result [facility]) SOURCE: Clean Catch Color Laboratory test result [facility]) SOURCE: Clean Catch Spec [place] 1.005 1.001-1.030 [facility] ([facility]) SOURCE: Clean Catch Clarity Laboratory test result [facility] ([facility]) SOURCE: Clean Catch Bilirubin Laboratory test result [facility]) SOURCE: Clean Catch Glucose Laboratory test result [facility]) SOURCE: Clean Catch pH 6.5 5-9 [facility] ([facility]) SOURCE: Clean Catch Protein Laboratory test result [facility] ([facility]) SOURCE: Clean Catch Ketone Laboratory test result [facility]) SOURCE: Clean Catch Blood Laboratory test result [facility]) SOURCE: Clean Catch Nitrite Laboratory test result [facility]) SOURCE: Clean Catch Microscopic Laboratory test result M [facility] ([facility]) SOURCE: Clean Catch Leuk Est 25 [facility] ([facility]) SOURCE: Clean Catch Urobilinogen Laboratory test result [facility]) SOURCE: Clean Catch WBC Laboratory test result [facility] ([facility]) SOURCE: Clean Catch Epithelial Laboratory test result [facility]) SOURCE: Clean Catch ID Date Data Source [id number] 01/27/2020 12:53:00 PM EDT [facility] Name Value Range Interpretation Code Description Data Giovana rce(s) Supporting Document(s) URINALYSIS [facility] giovanna URINALYSIS [facility]OURCE [facility] COL[facility] yellow NORMAL: Yellow [facility] CLARITY clear NORMAL: Clear [facility] Specific gravity of Urine by Test strip 1.005 1.001 - 1.030 [facility] pH 6.5 5 - 9 [facility] al Glucose [Mass/volume] in Urine by Test strip NORM NORMAL: Negat [facility] Bilirubin.total [Presence] in Urine by Test strip NEG NORMAL: Negative [facility] Ketones [Presence] in Urine by Test strip NEG NORMAL: Negative [facility] Protein [Mass/volume] in Urine by Test strip NEG NORMAL: Negat [facility] Nitrite [Presence] in Urine by Test strip NEG NORMAL: Negative [facility] BLOOD NEG NORMAL: Negative [facility] Leukocyte esterase [Presence] in Urine by Test strip 25 MILAGROS L: Negative [facility] Urobilinogen [Mass/volume] in Urine by Test strip NOR less vanessa n 1.0 mg/dL [facility] MICROSCOPIC See Below [facility] ital WBC 0 - 1 NORMAL: NONE SEEN [facility] EPITHELIAL FEW NORMAL: NONE SEEN [facility] ID Date Data Source [id number] 01/27/2020 11:27:00 AM EDT [facility] ([facility]) Name Value Range Interpretation Code Description Data Giovana rce(s) Supporting Document(s) Lipase [Enzymatic activity/volume] in Serum or Plasma 29 U/L 13-6 0 [facility]) ID Date Data Source [id number] 01/27/2020 11:27:00 AM EDT [facility] ([facility]) Name Value Range Interpretation Code Description Data Giovana rce(s) Supporting Document(s) Comprehensive [employer] Laboratory test result [facility]) COMPREHENSIVE METABOLIC PANEL Sodium 138 meq/L 134-153 [facility] ([facility]) Chloride 102 meq/L 98-107 [facility] ([facility]) Potassium 3.8 meq/L 3.6-5.0 [facility] ([facility]) Co2 26 meq/L 22-30 [facility] ([facility]) Glucose 102 mg/dL 65-110 [facility] ([facility]) Creatinine 1.0 mg/dL 0.7-1.5 [facility] ([facility]) BUN 10 mg/dL 7-21 [facility] ([facility]) BUN/Creat 10 8-27 [facility] ([facility]) Albumin 4.4 g/dL 3.9-5.0 [facility] ([facility]) Globulin 3.0 GM/DL 2.4-3.2 [facility] ([facility]) Total Protein 7.4 g/dL 6.3-8.2 [facility]) Calcium 9.3 mg/dL 8.4-10.2 [facility] ([facility]) Total Bili Laboratory test result 0.2-1.3 [place] [facility] ([facility]) A/G Ratio 1.5 0.8-2.0 [facility] ([facility]) Alkaline Phos 96 U/L 38-126 [facility]) SGPT/Alt 27 U/L 7-56 [facility] ([facility]) Sgot/Ast 18 U/L 5-40 [facility] ([facility]) Anion Gap 10.0 mmol/L 8.0-16.0 [facility] ([facility]) Non-Aa GFR Laboratory test result [facility] ([facility]) Age 29 yrs [facility] ([facility]) Afr Amer GFR Laboratory test result [facility]) Male GFR Interprentation 20-49 yrs >60 [...] >32 mL/min Normal ID Date Data Source [id number] 01/27/2020 11:27:00 AM EDT [facility] ([facility]) Name Value Range Interpretation Code Description Data Giovana rce(s) Supporting Document(s) CBC W/Automated Diff Laboratory test result [facility]) COMPLETE BLOOD COUNT Hemoglobin 15.9 g/dL 14.0-16.0 [facility] ([facility]) RBC 5.61 10^6/uL 4.50-6.30 [facility]) WBC 8.8 10^3/uL 4.2-11.0 [facility] ([facility]) Hematocrit 49.5 % 41.0-51.0 [facility] ([facility]) MCV 88.2 fL 80.0-94.0 [facility] ([facility]) MCH 28.3 pg 27.0-34.0 [facility] ([facility]) RDW 13.8 % 11.5-14.8 [facility] ([facility]) Platelets 197 10^3/uL 150-450 [facility] ([facility]) MPV 9.0 fL 7.4-10.4 [facility] ([facility]) MCHC 32.1 g/dL 31.0-36.0 [facility] ([facility]) Lymph 21.5 % 25.0-40.0 Below low normal [facility]) [place] 8.4 % 3.0-8.0 Above high normal [facility] ([facility]) Neut 66.9 % 37.0-80.0 [facility] ([facility]) Eos 2.7 % 0.0-7.0 [facility] ([facility]) Baso 0.2 % 0.0-2.0 [facility] ([facility]) %Ig 0.3 % 0.0-0.0 Above high normal [facility] ([facility]) #Lymph 1.90 10^3/uL 0.60-3.40 [facility]) %NRBC 0.0 % 0.0-0.0 [facility] ([facility]) #Neut 5.91 10^3/uL 2.00-6.90 [facility]) #Baso 0.02 10^3/uL 0.00-0.20 [facility]) #Ig 0.03 10^3/uL 0.00-0.10 [facility]) #Eos 0.24 10^3/uL 0.00-0.70 [facility]) #[place] 0.74 10^3/uL 0.00-0.90 [facility]) RBC Morph Laboratory test result [facility]) #NRBC 0.00 10^3/uL 0.00-0.00 [facility]) Manual Diff Laboratory test result M [facility] ([facility]) ID Date Data Source [id number] 01/27/2020 11:27:00 AM EDT [facility] ([facility]) Name Value Range Interpretation Code Description Data Giovana rce(s) Supporting Document(s) Lactate [Mass/volume] in Serum or Plasma 1.8 mmol/L 0.2-2.2 [facility] ([facility]) ID Date Data Source [id number] 01/27/2020 12:26:00 PM EDT [facility] Name Value Range Interpretation Code Description Data Giovana rce(s) Supporting Document(s) Lipase [Enzymatic activity/volume] in Serum or Plasma 29 U/L 13 - 60 [facility] ID Date Data Source [id number] 01/27/2020 12:26:00 PM EDT [facility] Name Value Range Interpretation Code Description Data Giovana rce(s) Supporting Document(s) COMPREHENSIVE METABOLIC PANEL [facility] COMPREHENSIVE METABOLIC PANEL Sodium [Moles/volume] in Serum or Plasma 138 mEq/L 134 - 153 [facility] Potassium [Moles/volume] in Serum or Plasma 3.8 mEq/L 3.6 - 5.0 [facility] Chloride [Moles/volume] in Serum or Plasma 102 mEq/L 98 - 107 [facility] Carbon dioxide, total [Moles/volume] in Serum or Plasma 26 MEQ/L 22 - 30 [facility] Glucose [Mass/volume] in Serum or Plasma 102 MG/DL 65 - 110 [facility] BUN 10 MG/DL 7 - 21 [facility] al Creatinine [Mass/volume] in Serum or Plasma 1.0 MG/DL 0.7 - 1.5 [facility] BUN/CREAT 10 8 - 27 [facility] al Protein [Mass/volume] in Serum or Plasma 7.4 G/DL 6.3 - 8.2 [facility] Albumin [Mass/volume] in Serum or Plasma 4.4 G/DL 3.9 - 5.0 [facility] Globulin [Mass/volume] in Serum by calculation 3.0 GM/DL 2.4 - 3.2 [facility] A/G RATIO 1.5 0.8 - 2.0 [facility] Calcium [Mass/volume] in Serum or Plasma 9.3 MG/DL 8.4 - 10.2 [facility] Bilirubin.total [Mass/volume] in Serum or Plasma <0.7 MG/DL 0.2 - 1.3 [facility] Alkaline phosphatase [Enzymatic activity/volume] in Serum or Plasma 96 U/L 38 - 126 [facility] Aspartate aminotransferase [Enzymatic activity/volume] in Serum or Plasma 18 U/L 5 - 40 [facility] Alanine aminotransferase [Enzymatic activity/volume] in Seru m or Plasma 27 U/L 7 - 56 [facility] Anion gap 3 in Serum or Plasma 10.0 mmol/L 8.0 - 16.0 [facility] AGE 29 yrs [facility] NON-AA GFR >60 mL/min [facility] ital AFR AMER GFR >60 mL/min [facility] Male GFR In terprentation [...] >32 mL/min Normal ID Date Data Source [id number] 01/27/2020 12:13:00 PM EDT [facility] Name Value Range Interpretation Code Description Data Giovana rce(s) Supporting Document(s) CBC W/AUTOMATED DIFF [facility] COMPLETE BLOOD COUNT Leukocytes [#/volume] in Blood by Automated count 8.8 10^3/uL 4.2 - 1 1.0 [facility] Erythrocytes [#/volume] in Blood by Automated count 5.61 10^6/uL 4. 50 - 6.30 [facility] Hemoglobin [Mass/volume] in Blood 15.9 g/dL 14.0 - 16.0 [facility] Hematocrit [Volume Fraction] of Blood by Automated count 49.5 % 4 1.0 - 51.0 [facility] Erythrocyte mean corpuscular volume [Entitic volume] by Auto mated count 88.2 fL 80.0 - 94.0 [facility] Erythrocyte mean corpuscular hemoglobin [Entitic mass] by Automated count 28.3 pg 27.0 - 34.0 [facility] Erythrocyte mean corpuscular hemoglobin concentration [Mass/volume] by Automated count 32.1 g/dL 31.0 - 36.0 [facility] Erythrocyte distribution width [Ratio] by Automated count 13.8 % 11.5 - 14.8 [facility] Platelets [#/volume] in Blood by Automated count 197 10^3/uL 150 - 45 0 [facility] Platelet mean volume [Entitic volume] in Blood by Automated count 9.0 fL 7.4 - 10.4 [facility] Neutrophils/100 leukocytes in Blood by Automated count 66.9 % 37. 0 - 80.0 [facility] Lymphocytes/100 leukocytes in Blood by Manual count 21.5 % 25.0 - 40.0 L [facility] Monocytes/100 leukocytes in Blood by Automated count 8.4 % 3.0 - 8.0 H [facility] Eosinophils/100 leukocytes in Blood by Automated count 2.7 % 0.0 - 7.0 [facility] Basophils/100 leukocytes in Blood by Automated count 0.2 % 0.0 - 2.0 [facility] %IG 0.3 % 0.0 - 0.0 [facility] %NRBC 0.0 % 0.0 - 0.0 [facility] al Neutrophils [#/volume] in Blood by Automated count 5.91 10^3/uL 2.00 - 6.90 [facility] Lymphocytes [#/volume] in Blood by Automated count 1.90 10^3/uL 0.60 - 3.40 [facility] Monocytes [#/volume] in Blood by Automated count 0.74 10^3/uL 0.00 - 0.90 [facility] Eosinophils [#/volume] in Blood by Automated count 0.24 10^3/uL 0.00 - 0.70 [facility] Basophils [#/volume] in Blood by Automated count 0.02 10^3/uL 0.00 - 0.20 [facility] #IG 0.03 10^3/uL 0.00 - 0.10 [facility] #NRBC 0.00 10^3/uL 0.00 - 0.00 [facility] MANUAL DIFF NOT INDICATED [facility] RBC MORPH NOT INDICATED [facility] spital ID Date Data Source [id number] 01/27/2020 12:10:00 PM EDT [facility] Name Value Range Interpretation Code Description Data Giovana rce(s) Supporting Document(s) Lactate [Moles/volume] in Serum or Plasma 1.8 MMOL/L 0.2 - 2.2 [facility] ID Date Data Source [id number] 01/17/2020 02:07:00 PM EDT [facility] [address] [place] [address] PHONE: [phone] FAX: [phone] Name .................. : GAVIOTA Madison Acct Number.................. : [id number] ROOM. ................. : Number ................... : [id number] Stay type ............. : O/P Discharge Date......... ... : 01/17/20 Admit Date ......... : 01/17/20 Admit Phys .................... : HESTER HARD Date of ....... : 1990 Family Phys ................... : [employer] HARD Phone .................. : [phone] Age ................................ : 29 Film# .................. .:[id number] Sex ................................. : M Unsigned transcriptions are preliminary reports and do not represent a medical or legal document RIBS UNILAT W/[place] [id number] COMPLETE:01/17/20 10:15 BEM [id number] (REASON FOR CHEST: CHEST PAIN LEFT RIB [...] MD , 01/17/20 14:07, TDS Transcribe Initials: VERNON, Transcribe Date: 01/17/20 11:35, Dictation Date: Copy for: [address] [place] [address] Page 1 of 1 Name Value Range Interpretation Code Description Data Giovana rce(s) Supporting Document(s) ID Date Data Source [id number] 01/17/2020 01:27:00 PM EDT [facility] [address] [place] [address] PHONE: [phone] FAX: [phone] Name .................. : GAVIOTA Madison Acct Number.................. : [id number] ROOM. ................. : TR-02 MR Number ................... : [id number] Stay type ............. : E/R Discharge Date......... ... : 01/13/20 Admit Date ......... : 01/13/20 Admit Phys .................... : COONEYNORM Date of ....... : 1990 Family Phys ................... : MIR HARD Phone .................. : [phone] Age ................................ : 29 Film# .................. .:[id number] Sex ................................. : M Unsigned transcriptions are preliminary reports and do not represent a medical or legal document CT HEAD W/O CONTRAST [id number] COMPLETE:01/13/20 17:10 ALVAREZ [address]149 Reason(s): Headache CT OF THE HEAD WITHOUT [...] rce(s) Supporting Document(s) ID Date Data Source [id number] 01/17/2020 01:26:00 PM EDT [facility] [address] [place] [address] PHONE: [phone] FAX: [phone] Name .................. : GAVIOTA Madison Acct Number.................. : [id number] ROOM. ................. : [facility] MR Number ................... : [id number] Stay type ............. : E/R Discharge Date......... ... : 01/13/20 Admit Date ......... : 01/13/20 Admit Phys .................... : COONEYNORM Date of ....... : 1990 Family Phys ................... : HESTER HARD Phone .................. : [phone] Age ................................ : 29 Film# .................. .:[id number] Sex ................................. : M Unsigned transcriptions are preliminary reports and do not represent a medical or legal document CHEST PORTABLE [id number] COMPLETE:01/13/20 14:18 ARS 34910 Reason(s): Shortness of Breath PORTABLE CHEST X-RAY: [...] rce(s) Supporting Document(s) ID Date Data Source [id number] 01/13/2020 01:42:00 PM EDT [facility] 1 OrderSheet [facility] Emergency Department [address] [place] [address] Phone #: ext- [phone] 01/13/2020 13:41 Patient: NICK TRUJILLO Sex: M : 1990 Age: 29yWEIGHT:177.8 kg HEIGHT:71 inches BMI:54.7ALLERGIES: Dilantin, Naproxsyn, Tylenol with codeinCHIEF COMPLAINT: seizureDIAGNOSIS: SeizureLAB ORDERSOrder Description Priority Entered Acknowledged InitialedCBC w Diff STAT 13:56 01/13/2020 14:01 Mini Mcfarland Norma MD; Lacho BaeCMP STAT 13:56 01/13/2020 14:01 Mini Mcfarland Norma MD; Lacho BaeLipase STAT 13:56 01/13/2020 14:01 Mini Mcfarland Norma MD; Lacho BaeLactic Acid STAT 13:56 01/13/2020 14:01 Mini Mcfarland Norma MD; Lacho BaeUrinalysis (Clean STAT 13:56 01/13/2020 14:01 Bruna,Catch) Milagros Morse MD; Lacho Bae-- (topamax level) STAT 14:38 01/13/2020 14:39 Bruna,(Blood) Milagros Morse MD; Lacho BaeDIAGNOSTIC STUDY ORDERSOrder Description Priority Entered Acknowledged InitialedChest Portable 1 STAT 13:56 01/13/2020 14:01 Bruna,Milagros Peralta MD; Lacho Bae(Oxygen?(No)) NOTES: s/p seizure. r/o aspiration Reason for Study: Shortness of BreathCT Head W/O Cont STAT 15:46 01/13/2020 15:47 Bruna,(Oxygen?(No)) Milagros Morse MD; Lacho Bae NOTES: seizure Reason for Study: HeadacheMEDICATION/IV/DRIP/FLUID ORDERSOrder Description Priority Entered Acknowledged InitialedGENERAL ORDERSOrder Description Priority Entered Acknowledged Initialed 2 OrderSheet [facility] Emergency Department [address] [place] [address] Phone #: ext- [phone] 01/13/2020 13:41 Patient: NICK TRUJILLO Sex: M : 1990 Age: 29y[Electronically signed by Lacho Mcfarland R.N. (20:08 01/13/2020)][Electronically signed by Milagros Morse MD (22:42 01/15/2020)][Electronically locked by Lacho Mcfarland R.N. (20:08 01/13/2020)] Name Value Range Interpretation Code Description Data Giovana rce(s) Supporting Document(s) ID Date Data Source [id number] 01/13/2020 01:42:00 PM EDT [facility] 1 Medication Reconciliation Report [facility] Emergency Department [address] [place] [address] Phone #: ext- [phone] 01/13/2020 13:41 Patient: [...] ODT Oral, prn 2 Medication Reconciliation Report [facility] Emergency Department [address] [place] [address] Phone #: ext- [phone] 01/13/2020 13:41 Patient: NICK TRUJILLO Sex: M : 1990 Age: 29yThe source(s) of the original Home Medication information:Not obtained.The following Medications were given to the patient in the Emergency Department:None.The following Medications were prescribed to the patient:None. Name Value Range Interpretation Code Description Data Giovana rce(s) Supporting Document(s) ID Date Data Source [id number] 01/13/2020 01:42:00 PM EDT [facility] 1 Medication Administration Record [facility] Emergency Department [address] [place] [address] Phone #: ext- [phone] 01/13/2020 13:41 Patient: NICK TRUJILLO Sex: M : 1990 Age: 29yWeight: 177.8 kgHeight/Length: 71 inBMI: 54.7ALLERGIES: Dilantin, Naproxsyn, Tylenol with codeinDate/Time Medication Administered Medication Ordered Name Value Range Interpretation Code Description Data Giovana rce(s) Supporting Document(s) ID Date Data Source [id number] 01/13/2020 01:42:00 PM EDT [facility] 1 General Instructions [facility] Emergency Department [address] [place] [address] Phone #: ext- [phone] 01/13/2020 13:41 Patient: [...] instructions verbalized by patient. 2 General Instructions [facility] Emergency Department [address] [place] [address] Phone #: ext- [phone] 01/13/2020 13:41 Patient: NICK TRUJILLO Sex: M : 1990 Age: 29yNo driving or operating machinery.(Electronically signed by Milagros Morse MD 01/15/2020 22:42) Name Value Range Interpretation Code Description Data Giovana rce(s) Supporting Document(s) ID Date Data Source [id number] 01/13/2020 01:42:00 PM EDT [facility] 1 Clinical Report - Nurses [facility] Emergency Department [address] [place] [address] Phone #: [phone] 01/13/2020 13:41 Patient: NICK TRUJILLO Sex: M [...] Banda R.N.PROBLEMS:Hematuria.Asthma. 2 Clinical Report - Nurses [facility] Emergency Department [address] [place] [address] Phone #: ext- [phone] 01/13/2020 13:41 Patient: [...] treatment room. --13:52 01/13/20 Enedina Banda R.N.PHYSICAL YVNMKABLES46:02 01/13/20. To room via stretcher.GENERAL / NEURO / PSYCH: Alert. Oriented X 4. Appears in no acute distress. No apparent seizureactivity. Speech within normal limits. Patient appears well-nourished. 3 Clinical Report - Nurses [facility] Emergency Department [address] [place] [address] Phone #: ext- [phone] 01/13/2020 13:41 Patient: [...] Normal skin turgor. --14:02 01/13/20 Lacho Mcfarland REricNURSING PROGRESS NOTESMonitoring of patient in place. Patie [...] of bed on. --14:35 01/13/20 Lacho Mcfarland RShayNShay 15:44 01/13/20. Reassurance given. Reassessment acuity: LEVEL [...] Mcfarland R.NShay 16:22 01/13/20. Patient transported to [place] by wheelchair with biochemistry technologist. --16:22 01/13/20 Lacho Mcfarland R.N. 16:30 01/13/20. Patient returned from CT by stretcher with biochemistry technologist. --16:30 01/13/20 Lacho Mcfarland R.N. 17:01 01/13/20. [...] or numbness. 4 Clinical Report - Nurses [facility] Emergency Department [address] [place] [address] Phone #: ext- [phone] 01/13/2020 13:41 Patient: [...] Patient verbalized understanding. Written instructions provided in Lebanese. The patient was discharged by the physician. [...] rce(s) Supporting Document(s) ID Date Data Source [id number] 01/13/2020 01:42:00 PM EDT [facility] 1 Clinical Report - Physicians/Mid Levels [facility] Emergency Department [address] [place] [address] Phone #: ext- [phone] 01/13/2020 13:41 Patient: [...] daily. 2 Clinical Report - Physicians/Mid Levels [facility] Emergency Department [address] [place] [address] Phone #: ext- [phone] 01/13/2020 13:41 [id number] Sex: M : 1990 Age: 29y Zofran [...] Progress 3 Clinical Report - Physicians/Mid Levels [facility] Emergency Department [address] [place] [address] Phone #: ext- [phone] 01/13/2020 13:41 Patient: NICK TRUJILLO Sex: M [...] 56) 4 Clinical Report - Physicians/Mid Levels [facility] Emergency Department [address] [place] [address] Phone #: ext- [phone] 01/13/2020 13:41 Patient: [...] mL/min Normal Lipase: (KAVITA: 01/13/2020 14:13) ( [facility] [place] 01/13/[place] 14:43) Final results Test Result Flag Units (Reference) LIPASE 32 U/L (13 - 60) Lactic Acid: (KAVITA: 01/13/2020 14:13) ( [facility] [place] 01/13/2020 14:35) Final results Test Result Flag Units (Reference) LACTIC ACID 1.9 MMOL/L (0.2 - 2.2) Urinalysis: (KAVITA: 01/13/2020 13:56) ( [facility] [place] 01/13/2020 14:06) Final results Test Result Flag [...] Portable 1 View: (KAVITA: 01/13/2020 13:56) ( [facility] 01/13/2020 14:19) In Progress CHEST PORTABLE Reason(s): Shortness of Breath TRANSPORTATION: WC IV? O2? Oxygen?(No) Room: ED CMTS: s/p [...] any 5 Clinical Report - Physicians/Mid Levels [facility] Emergency Department [address] [place] [address] Phone #: ext- [phone] 01/13/2020 13:41 Patient: NICK TRUJILLO Sex: M [...] patient. 6 Clinical Report - Physicians/Mid Levels [facility] Emergency Department [address] [place] [address] Phone #: lcm- [phone] 01/13/2020 13:41 Patient: NICK TRUJILLO Sex: M : 1990 Age: 29y(Electronically signed by Milagros Morse MD 01/15/2020 22:42) Name Value Range Interpretation Code Description Data Giovana rce(s) Supporting Document(s) ID Date Data Source [id number] 12/31/2019 01:56:00 [place] [address] OPERATIVE SUMMARYNAME: GAVIOTA Madison DATE OF : 1990ATTENDING PHYS: SALVADOR KAMARA MD DATE: 12/31/19 MR#: [id number] PROCEDURE: 12/31/2019PRE-OPERATIVE DIAGNOSIS:Microscopic hematuria.POST-OPERATIVE DIAGNOSIS:Microscopic hematuria.PROCEDURE PERFORMED:Flexible cy stoscopy.ATTENDING SURGEON: Dr. Salvador Kamara.PHYSICIAN ELECTRONIC ENGINEERING TECHNICIAN: CLYDE Farias.ANESTHESIA: Local.ESTIMATED BLOOD LOSS: Minimal.COMPLICATIONS: None.DRAINS: [...] urethra. No dense or long strictures [address] [place] [address] OPERATIVE SUMMARYNAME: GAVIOTA Madison DATE OF : 1990ATTENDING PHYS: SALVADOR KAMARA MD DATE: 12/31/19 MR#: [id number] noted. The rest of the cystoscopy was [...] Name Value Range Interpretation Code Description Data Giovnaa rce(s) Supporting Document(s) ID Date Data Source [id number] 01/13/2020 02:58:00 PM EDT [facility] Name Value Range Interpretation Code Description Data Giovana rce(s) Supporting Document(s) Topiramate [Mass/volume] in Serum or Plasma 8.7 ug/mL 2.0-25.[address] [facility] This test was developed and its performa nce characteristics determined by [facility]. It has not been cleared or approved by the Food and Drug Administration. Detection Limit = 1.0 ID Date Data Source [id number] 01/17/2020 08:03:00 PM EDT [facility] Name Value Range Interpretation Code Description Data Giovana rce(s) Supporting Document(s) Topiramate [Mass/volume] in Serum or Plasma 8.7 ug/mL 2.0-25.0 [facility] This test was developed and its performa nce characteristicsdetermined by [facility]. It has not been cleared or approvedby the Food and Drug Administration. Detection Limit = 1.0 ID Date Data Source [id number] 01/13/2020 02:13:00 PM EDT [facility] ([facility]) Name Value Range Interpretation Code Description Data Giovana rce(s) Supporting Document(s) CBC W/Automated Diff Laboratory test result [facility] ([facility]) COMPLETE BLOOD COUNT WBC 8.6 10^3/uL 4.2-11.0 [facility] ([facility]) RBC 5.69 10^6/uL 4.50-6.30 [facility] ([facility]) Hemoglobin 16.2 g/dL 14.0-16.0 Above high normal [facility] ([facility]) Hematocrit 50.7 % 41.0-51.0 [facility] ([facility]) MCH 28.5 pg 27.0-34.0 [facility] ([facility]) MCV 89.1 fL 80.0-94.0 [facility] ([facility]) RDW 13.7 % 11.5-14.8 [facility] ([facility]) MCHC 32.0 g/dL 31.0-36.0 [facility] ([facility]) Platelets 212 10^3/uL 150-450 [facility] ([facility]) MPV 9.0 fL 7.4-10.4 [facility] ([facility]) Neut 68.4 % 37.0-80.0 [facility] ([facility]) Lymph 20.7 % 25.0-40.0 Below low normal [facility] ( [facility]) [place] 7.7 % 3.0-8.0 [facility] ([facility]) Baso 0.1 % 0.0-2.0 [facility] ([facility]) Eos 2.9 % 0.0-7.0 [facility] ([facility]) %Ig 0.2 % 0.0-0.0 Above high normal [facility] ([facility]) #Neut 5.84 10^3/uL 2.00-6.90 [facility] ([facility]) %NRBC 0.0 % 0.0-0.0 [facility] ([facility]) #Lymph 1.77 10^3/uL 0.60-3.40 [facility] ([facility]) #Baso 0.01 10^3/uL 0.00-0.20 [facility] ([facility]) #[place] 0.66 10^3/uL 0.00-0.90 [facility] ([facility]) #Eos 0.25 10^3/uL 0.00-0.70 [facility] ([facility]) #Ig 0.02 10^3/uL 0.00-0.10 [facility] ([facility]) RBC Morph Laboratory test result [facility] ([facility]) #NRBC 0.00 10^3/uL 0.00-0.00 [facility] ([facility]) Manual Diff Laboratory test result [facility] ([facility]) ID Date Data Source [id number] 01/13/2020 02:13:00 PM EDT [facility] ([facility]) Name Value Range Interpretation Code Description Data Giovana rce(s) Supporting Document(s) Lipase [Enzymatic activity/volume] in Serum or Plasma 32 U/L 13-6 0 [facility] ([facility]) Lactate [Mass/volume] in Serum or Plasma 1.9 mmol/L 0.2-2.2 [facility] ([facility]) ID Date Data Source [id number] 01/13/2020 02:13:00 PM EDT [facility] ([facility]) Name Value Range Interpretation Code Description Data Giovana rce(s) Supporting Document(s) Comprehensive [employer]abo Laboratory test result [facility] ([facility]) COMPREHENSIVE METABOLIC PANEL Sodium 143 meq/L 134-153 [facility] ([facility]) Co2 24 meq/L 22-30 [facility] ([facility]) Chloride 108 meq/L 98-107 Above high normal [facility] ([facility]) Potassium 4.0 meq/L 3.6-5.0 [facility] ([facility]) Creatinine 0.9 mg/dL 0.7-1.5 [facility] ([facility]) BUN 12 mg/dL 7-21 [facility] ([facility]) Glucose 141 mg/dL 65-110 Above high normal [facility] ([facility]) Total Protein 7.6 g/dL 6.3-8.2 [facility] ([facility]) Albumin 4.4 g/dL 3.9-5.0 [facility] ([facility]) BUN/Creat 13 8-27 [facility] ([facility]) Globulin 3.2 GM/DL 2.4-3.2 [facility] ([facility]) Calcium 9.1 mg/dL 8.4-10.2 [facility] ([facility]) A/G Ratio 1.4 0.8-2.0 [facility] ([facility]) Total Bili Laboratory test result 0.2-1.3 [facility] ([facility]) Alkaline Phos 96 U/L 38-126 [facility] ([facility]) Sgot/Ast 20 U/L 5-40 [facility] ([facility]) Age 29 yrs [facility] ([facility]) Anion Gap 11.0 mmol/L 8.0-16.0 [facility] ([facility]) SGPT/Alt 29 U/L 7-56 [facility] ([facility]) Non-Aa GFR Laboratory test result [facility] ([facility]) Afr Amer GFR Laboratory test result [facility] ([facility]) Male GFR Interprentation 20-49 yrs >60 [...] >32 mL/min Normal ID Date Data Source [id number] 01/13/2020 02:56:00 PM EDT [facility] Name Value Range Interpretation Code Description Data Giovana rce(s) Supporting Document(s) COMPREHENSIVE METABOLIC PANEL [facility] COMPREHENSIVE METABOLIC PANEL Sodium [Moles/volume] in Serum or Plasma 143 mEq/L 134 - 153 [facility] Potassium [Moles/volume] in Serum or Plasma 4.0 mEq/L 3.6 - 5.0 [facility] Chloride [Moles/volume] in Serum or Plasma 108 mEq/L 98 - 107 H [facility] Carbon dioxide, total [Moles/volume] in Serum or Plasma 24 MEQ/L 22 - 30 [facility] Glucose [Mass/volume] in Serum or Plasma 141 MG/DL 65 - 110 H [facility] BUN 12 MG/DL 7 - 21 [facility] Creatinine [Mass/volume] in Serum or Plasma 0.9 MG/DL 0.7 - 1.5 [facility] BUN/CREAT 13 8 - 27 [facility] Protein [Mass/volume] in Serum or Plasma 7.6 G/DL 6.3 - 8.2 [facility] Albumin [Mass/volume] in Serum or Plasma 4.4 G/DL 3.9 - 5.0 [facility] Globulin [Mass/volume] in Serum by calculation 3.2 GM/DL 2.4 - 3.2 [facility] A/G RATIO 1.4 0.8 - 2.0 [facility] Calcium [Mass/volume] in Serum or Plasma 9.1 MG/DL 8.4 - 10.2 [facility] Bilirubin.total [Mass/volume] in Serum or Plasma <0.7 MG/DL 0.2 - 1.3 [facility] Alkaline phosphatase [Enzymatic activity/volume] in Serum or Plasma 96 U/L 38 - 126 [facility] Aspartate aminotransferase [Enzymatic activity/volume] in Serum or Plasma 20 U/L 5 - 40 [facility] Alanine aminotransferase [Enzymatic activity/volume] in Seru m or Plasma 29 U/L 7 - 56 [facility] Anion gap 3 in Serum or Plasma 11.0 mmol/L 8.0 - 16.0 [facility] AGE 29 yrs [facility] NON-AA GFR >60 mL/min [facility] AFR AMER GFR >60 mL/min [facility] Male GFR In terprentation [...] >32 mL/min Normal ID Date Data Source [id number] 01/13/2020 02:43:00 PM EDT [facility] Name Value Range Interpretation Code Description Data Giovana rce(s) Supporting Document(s) Lipase [Enzymatic activity/volume] in Serum or Plasma 32 U/L 13 - 60 [facility] ID Date Data Source [id number] 01/13/2020 02:35:00 PM EDT [facility] Name Value Range Interpretation Code Description Data Giovana rce(s) Supporting Document(s) Lactate [Moles/volume] in Serum or Plasma 1.9 MMOL/L 0.2 - 2.2 [facility] ID Date Data Source [id number] 01/13/2020 02:27:00 PM EDT [facility] Name Value Range Interpretation Code Description Data Giovana rce(s) Supporting Document(s) CBC W/AUTOMATED DIFF [facility] COMPLETE BLOOD COUNT Leukocytes [#/volume] in Blood by Automated count 8.6 10^3/uL 4.2 - 1 1.0 [facility] Erythrocytes [#/volume] in Blood by Automated count 5.69 10^6/uL 4. 50 - 6.30 [facility] Hemoglobin [Mass/volume] in Blood 16.2 g/dL 14.0 - 16.0 H [facility] Hematocrit [Volume Fraction] of Blood by Automated count 50.7 % 4 1.0 - 51.0 [facility] Erythrocyte mean corpuscular volume [Entitic volume] by Auto mated count 89.1 fL 80.0 - 94.0 [facility] Erythrocyte mean corpuscular hemoglobin [Entitic mass] by Automated count 28.5 pg 27.0 - 34.0 [facility] Erythrocyte mean corpuscular hemoglobin concentration [Mass/volume] by Automated count 32.0 g/dL 31.0 - 36.0 [facility] Erythrocyte distribution width [Ratio] by Automated count 13.7 % 11.5 - 14.8 [facility] Platelets [#/volume] in Blood by Automated count 212 10^3/uL 150 - 45 0 [facility] Platelet mean volume [Entitic volume] in Blood by Automated count 9.0 fL 7.4 - 10.4 [facility] Neutrophils/100 leukocytes in Blood by Automated count 68.4 % 37. 0 - 80.0 [facility] Lymphocytes/100 leukocytes in Blood by Manual count 20.7 % 25.0 - 40.0 L [facility] Monocytes/100 leukocytes in Blood by Automated count 7.7 % 3.0 - 8.0 [facility] Eosinophils/100 leukocytes in Blood by Automated count 2.9 % 0.0 - 7.0 [facility] Basophils/100 leukocytes in Blood by Automated count 0.1 % 0.0 - 2.0 [facility] %IG 0.2 % 0.0 - 0.0 H [facility] al %NRBC 0.0 % 0.0 - 0.0 [facility] al Neutrophils [#/volume] in Blood by Automated count 5.84 10^3/uL 2.00 - 6.90 [facility] Lymphocytes [#/volume] in Blood by Automated count 1.77 10^3/uL 0.60 - 3.40 [facility] Monocytes [#/volume] in Blood by Automated count 0.66 10^3/uL 0.00 - 0.90 [facility] Eosinophils [#/volume] in Blood by Automated count 0.25 10^3/uL 0.00 - 0.70 [facility] Basophils [#/volume] in Blood by Automated count 0.01 10^3/uL 0.00 - 0.20 [facility] #IG 0.02 10^3/uL 0.00 - 0.10 [facility] #NRBC 0.00 10^3/uL 0.00 - 0.00 [facility] MANUAL DIFF NOT INDICATED [facility] RBC MORPH NOT INDICATED [facility] ID Date Data Source [id number] 01/13/2020 01:56:00 PM EDT [facility] ([facility]) Name Value Range Interpretation Code Description Data Giovana rce(s) Supporting Document(s) Urinalysis Laboratory test result [facility]) URINALYSIS Source Laboratory test result [facility] ([facility]) SOURCE: Clean Catch Color Laboratory test result [facility]) SOURCE: Clean Catch Clarity Laboratory test result [facility]) SOURCE: Clean Catch Spec [place] 1.005 1.001-1.030 [facility] ([facility]) SOURCE: Clean Catch pH 8 5-9 [facility] ([facility]) SOURCE: Clean Catch Bilirubin Laboratory test result [facility] ([facility]) SOURCE: Clean Catch Glucose Laboratory test result [facility]) SOURCE: Clean Catch Ketone Laboratory test result [facility]) SOURCE: Clean Catch Protein Laboratory test result [facility] ([facility]) SOURCE: Clean Catch Blood Laboratory test result [facility] ([facility]) SOURCE: Clean Catch Nitrite Laboratory test result [facility] ([facility]) SOURCE: Clean Catch Leuk Est Laboratory test result [facility] ([facility]) SOURCE: Clean Catch Urobilinogen Laboratory test result [facility] ([facility]) SOURCE: Clean Catch Microscopic Laboratory test result [facility] ([facility]) SOURCE: Clean Catch ID Date Data Source [id number] 01/13/2020 02:06:00 PM EDT [facility] Name Value Range Interpretation Code Description Data Giovana rce(s) Supporting Document(s) URINALYSIS [facility] giovanna URINALYSIS SOURCE R [facility] COLOR yellow NORMAL: Yellow [facility] CLARITY clear NORMAL: Clear [facility] Specific gravity of Urine by Test strip 1.005 1.001 - 1.030 [facility] 8 5 - [facility] Gl[facility] [Mass/volume] in Urine by Test strip NORM NORMAL: Negat [facility] Bilirubin.total [Presence] in Urine by Test strip NEG NORMAL: Negative [facility] Ketones [Presence] in Urine by Test strip NEG NORMAL: Negative [facility] Protein [Mass/volume] in Urine by Test strip NEG NORMAL: Negat [facility] Nitrite [Presence] in Urine by Test strip NEG NORMAL: Negative [facility] BLOOD NEG NORMAL: Negative [facility] Leukocyte esterase [Presence] in Urine by Test strip NEG MILAGROS L: Negative [facility] Urobilinogen [Mass/volume] in Urine by Test strip NOR less vanessa n 1.0 mg/dL [facility] MICROSCOPIC Not Indicate [facility] ID Date Data Source [id number] 01/12/2020 01:25:00 PM EDT [facility] ([facility]) Name Value Range Interpretation Code Description Data Giovana rce(s) Supporting Document(s) Ribs Unilat W/PA CXR LT Laboratory test result [facility]) ID Date Data Source [id number] 12/28/2019 09:15:00 AM EDT [facility] ([facility]) Name Value Range Interpretation Code Description Data Giovana rce(s) Supporting Document(s) Coronavirus Covid-19 Laboratory test result [facility]) This test was developed and its performa nce characteristics determined by [facility] [employer] This test has not been FDA cleared [...] in this assay. ID Date Data Source [id number] 12/28/2019 09:15:00 AM EDT [facility] Name Value Range Interpretation Code Description Data Giovana rce(s) Supporting Document(s) SARS CORONAVIRUS 2 RNA [facility] This lab was ordered by [facility] Haider huerta and reported by [facility]. ID Date Data Source [id number] 12/30/2019 06:32:00 AM EDT [facility] Name Value Range Interpretation Code Description Data Giovana rce(s) Supporting Document(s) SARS-CoV-2, TYRON Not Detected Not Detected [facility] This test was developed and its performa nce characteristics determinedby [facility] This test has not been FDA cleared [...] in this assay. ID Date Data Source [id number] 11/22/2019 09:49:00 AM EDT [facility] [address] [place] [address] PHONE: [phone] FAX: [phone] Name .................. : GAVIOTA Madison Acct Number.................. : [id number] ROOM. ................. : MR Number ................... : [id number] Stay type ............. : O/P Discharge Date......... ... : 11/19/19 Admit Date ......... : 11/19/19 Admit Phys .................... : HESTER HARD Date of ....... : 1990 Family Phys ................... : [employer] HARD Phone .................. : [phone] Age ................................ : 29 Film# .................. .:[id number] Sex ................................. : M Unsigned transcriptions are preliminary reports and do not represent a medical or legal document SPINE LS COMPLETE [id number] COMPLETE:11/19/19 10:39 [id number] (SPINE PROC REASON: PAIN LUMBAR SPINE X-RAY: [...] Date: 11/19/19 15:31, Dictation Date: Copy for: [address] [place] [address] REC Page 1 of 1 Name Value Range Interpretation Code Description Data Giovana rce(s) Supporting Document(s) ID Date Data Source [id number] 11/22/2019 09:49:00 AM EDT [facility] [address] [place] [address] PHONE: [phone] FAX: [phone] Name .................. : GAVIOTA Madison Acct Number.................. : [id number] ROOM. ................. : Number ................... : [id number] Stay type ............. : O/P Discharge Date......... ... : 11/19/19 Admit Date ......... : 11/19/19 Admit Phys .................... : HESTER HARD Date of ....... : 1990 Family Phys ................... : [employer] Phone .................. : [phone] Age ................................ : 29 Film# .................. .:[id number] Sex ................................. : M Unsigned transcriptions are preliminary reports and do not represent a medical or legal document SPINE THORACIC [id number] COMPLETE:11/19/19 10:39 [id number] (SPINE PROC REASON: PAIN THORACIC SPINE SERIES: FINDINGS: Moderate degenerative spondylosis is seen on vertebral body endplates. Acute fracture, subluxation or focal osseous lesion is not seen. The paraspinal soft tissues are unremarkable. IMPRESSION: Degenerative spondylosis. No acute osseous or joint space abnormality. Electronically Reviewed and Signed By Mami Werner MD , 11/22/19 09:49, KGG Transcribe Initials: DZ , Transcribe Date: 11/19/19 15:30, Dictation Date: Copy for: 710 MED REC Page 1 of 1 Name Value Range Interpretation Code Description Data Giovana rce(s) Supporting Document(s) ID Date Data Source [id number] 11/18/2019 03:15:00 PM EDT [facility] ([facility]) Name Value Range Interpretation Code Description Data Giovana rce(s) Supporting Document(s) Source Laboratory test result [facility] Is patient fasting? N {SOURCE: Random Void~NURSE COLLECTED? N Is patient fasting? N Urinalysis Laboratory test result [facility] ([facility]) Is patient fasting? N {SOURCE: Random Void~NURSE COLLECTED? N Is patient fasting? N Color Laboratory test result [facility] ([facility]) Is patient fasting? N {SOURCE: Random Void~NURSE COLLECTED? N Is patient fasting? N Clarity Laboratory test result [facility] ([facility]) Is patient fasting? N {SOURCE: Random Void~NURSE COLLECTED? N Is patient fasting? N Glucose Laboratory test result [facility] ([facility]) Is patient fasting? N {SOURCE: Random Void~NURSE COLLECTED? N Is patient fasting? N pH 5 5-9 [facility] ([facility]) Is patient fasting? N {SOURCE: Random Void~NURSE COLLECTED? N Is patient fasting? N Spec [place] 1.015 1.001-1.030 [facility] ([facility]) Is patient fasting? N {SOURCE: Random Void~NURSE COLLECTED? N Is patient fasting? N Bilirubin Laboratory test result [facility] ([facility]) Is patient fasting? N {SOURCE: Random Void~NURSE COLLECTED? N Is patient fasting? N Protein Laboratory test result [facility] ([facility]) Is patient fasting? N {SOURCE: Random Void~NURSE COLLECTED? N Is patient fasting? N Ketone Laboratory test result [facility] ([facility]) Is patient fasting? N {SOURCE: Random Void~NURSE COLLECTED? N Is patient fasting? N Blood Laboratory test result [facility] ([facility]) Is patient fasting? N {SOURCE: Random Void~NURSE COLLECTED? N Is patient fasting? N Nitrite Laboratory test result [facility] ([facility]) Is patient fasting? N {SOURCE: Random Void~NURSE COLLECTED? N Is patient fasting? N Microscopic Laboratory test result M [facility] ([facility]) Is patient fasting? N {SOURCE: Random Void~NURSE COLLECTED? N Is patient fasting? N Leuk Est Laboratory test result [facility] ([facility]) Is patient fasting? N {SOURCE: Random Void~NURSE COLLECTED? N Is patient fasting? N Urobilinogen Laboratory test result [facility] ([facility]) Is patient fasting? N {SOURCE: Random Void~NURSE COLLECTED? N Is patient fasting? N ID Date Data Source [id number] 11/18/2019 03:15:00 PM EDT [facility] ([facility]) Name Value Range Interpretation Code Description Data Giovana rce(s) Supporting Document(s) Thyrotropin [Units/volume] in Serum or Plasma 1.85 uIU/mL 0.47-5.01 [facility] ([facility]) Is patient fasting? N {SOURCE: Random Void~NURSE COLLECTED? N Is patient fasting? N Thyroxine (T4) free [Mass/volume] in Serum or Plasma 0.72 ng/dL 0.93-1.70 Below low normal [facility] ([facility]) Is patient fasting? N {SOURCE: Random Void~NURSE COLLECTED? N Is patient fasting? N Hemoglobin A1c/Hemoglobin.total in Blood 4.3 % 4.4-6.1 Below low normal [facility] ([facility]) Is patient fasting? N {SOURCE: Random Void~NURSE COLLECTED? N Is patient fasting? N ID Date Data Source [id number] 11/18/2019 03:15:00 PM EDT [facility] ([facility]) Name Value Range Interpretation Code Description Data Giovana rce(s) Supporting Document(s) Cve Panel Laboratory test result [facility]) Is patient fasting? N {SOURCE: Random Void~NURSE COLLECTED? N Is patient fasting? N Cholesterol 220 mg/dL 131-200 Above high normal [facility] ([facility]) Is patient fasting? N {SOURCE: Random Void~NURSE COLLECTED? N Is patient fasting? N HDL 46 mg/dL 29-86 [facility] ([facility]) Is patient fasting? N {SOURCE: Random Void~NURSE COLLECTED? N Is patient fasting? N Triglycerides 250 mg/dL 35-160 Above high normal [facility] ([facility]) Is patient fasting? N {SOURCE: Random Void~NURSE COLLECTED? N Is patient fasting? N LDL/HDL 3.46 1.00-3.55 [facility] ([facility]) Is patient fasting? N {SOURCE: Random Void~NURSE COLLECTED? N Is patient fasting? N LDL 159 mg/dL 65-175 [facility] ([facility]) Is patient fasting? N {SOURCE: Random Void~NURSE COLLECTED? N Is patient fasting? N Risk Factor 4.8 3.4-4.9 [facility] ([facility]) Is patient fasting? N {SOURCE: Random Void~NURSE COLLECTED? N Is patient fasting? N ID Date Data Source [id number] 11/18/2019 03:15:00 PM EDT [facility] ([facility]) Name Value Range Interpretation Code Description Data Giovana rce(s) Supporting Document(s) Comprehensive Metabo Laboratory test result [facility]) Is patient fasting? N {SOURCE: Random Void~NURSE COLLECTED? N Is patient fasting? N Chloride 104 meq/L 98-107 [facility] ([facility]) Is patient fasting? N {SOURCE: Random Void~NURSE COLLECTED? N Is patient fasting? N Potassium 4.0 meq/L 3.6-5.0 [facility] ([facility]) Is patient fasting? N {SOURCE: Random Void~NURSE COLLECTED? N Is patient fasting? N Sodium 142 meq/L 134-153 [facility] ([facility]) Is patient fasting? N {SOURCE: Random Void~NURSE COLLECTED? N Is patient fasting? N Co2 27 meq/L 22-30 [facility] Is patient fasting? N {SOURCE: Random Void~NURSE COLLECTED? N Is patient fasting? N Glucose 91 mg/dL 65-110 [facility] ([facility]) Is patient fasting? N {SOURCE: Random Void~NURSE COLLECTED? N Is patient fasting? N BUN/Creat 17 8-27 [facility] ([facility]) Is patient fasting? N {SOURCE: Random Void~NURSE COLLECTED? N Is patient fasting? N BUN 15 mg/dL 7-21 [facility] ([facility]) Is patient fasting? N {SOURCE: Random Void~NURSE COLLECTED? N Is patient fasting? N Creatinine 0.9 mg/dL 0.7-1.5 [facility] ([facility]) Is patient fasting? N {SOURCE: Random Void~NURSE COLLECTED? N Is patient fasting? N Albumin 4.4 g/dL 3.9-5.[address] [facility] ([facility]) Is patient fasting? N {SOURCE: Random Void~NURSE COLLECTED? N Is patient fasting? N Globulin 3.2 GM/DL 2.4-3.[address] [facility] ([facility]) Is patient fasting? N {SOURCE: Random Void~NURSE COLLECTED? N Is patient fasting? N Total Protein 7.6 g/dL 6.3-8.[address] [facility] ([facility] Is patient fasting? N {SOURCE: Random Void~NURSE COLLECTED? N Is patient fasting? N Calcium 9.3 mg/dL 8.4-10.[address] [facility] ([facility]) Is patient fasting? N {SOURCE: Random Void~NURSE COLLECTED? N Is patient fasting? N A/G Ratio 1.4 0.8-2.[address] [facility] ([facility]) Is patient fasting? N {SOURCE: Random Void~NURSE COLLECTED? N Is patient fasting? N Total Bili Laboratory test result 0.2-1.3 [facility] ([facility]) Is patient fasting? N {SOURCE: Random Void~NURSE COLLECTED? N Is patient fasting? N Alkaline Phos 114 U/L 38-126 [facility] ([facility]) Is patient fasting? N {SOURCE: Random Void~NURSE COLLECTED? N Is patient fasting? N Sgot/Ast 22 U/L 5-40 [facility] ([facility]) Is patient fasting? N {SOURCE: Random Void~NURSE COLLECTED? N Is patient fasting? N Age 29 yrs [facility] ([facility]) Is patient fasting? N {SOURCE: Random Void~NURSE COLLECTED? N Is patient fasting? N SGPT/Alt 34 U/L 7-56 [facility] ([facility]) Is patient fasting? N {SOURCE: Random Void~NURSE COLLECTED? N Is patient fasting? N Anion Gap 11.0 mmol/L 8.0-16.0 [facility] ([facility]) Is patient fasting? N {SOURCE: Random Void~NURSE COLLECTED? N Is patient fasting? N Afr Amer GFR Laboratory test result [facility] ([facility]) Is patient fasting? N {SOURCE: Random Void~NURSE COLLECTED? N Is patient fasting? N Non-Aa GFR Laboratory test result [facility] ([facility]) Is patient fasting? N {SOURCE: Random Void~NURSE COLLECTED? N Is patient fasting? N ID Date Data Source [id number] 11/18/2019 03:15:00 PM EDT [facility] ([facility]) Name Value Range Interpretation Code Description Data Giovana rce(s) Supporting Document(s) RBC 5.74 10^6/uL 4.50-6.30 [facility] ([facility]) Is patient fasting? N {SOURCE: Random Void~NURSE COLLECTED? N Is patient fasting? N CBC W/Automated Diff Laboratory test result [facility] ([facility]) Is patient fasting? N {SOURCE: Random Void~NURSE COLLECTED? N Is patient fasting? N WBC 9.5 10^3/uL 4.2-11.0 [facility] ([facility]) Is patient fasting? N {SOURCE: Random Void~NURSE COLLECTED? N Is patient fasting? N Hemoglobin 16.5 g/dL 14.0-16.0 Above high normal [facility] ([facility]) Is patient fasting? N {SOURCE: Random Void~NURSE COLLECTED? N Is patient fasting? N MCV 87.5 fL 80.0-94.0 [facility] ([facility]) Is patient fasting? N {SOURCE: Random Void~NURSE COLLECTED? N Is patient fasting? N Hematocrit 50.2 % 41.0-51.0 [facility] ([facility]) Is patient fasting? N {SOURCE: Random Void~NURSE COLLECTED? N Is patient fasting? N RDW 13.7 % 11.5-14.8 [facility] ([facility]) Is patient fasting? N {SOURCE: Random Void~NURSE COLLECTED? N Is patient fasting? N MCHC 32.9 g/dL 31.0-36.0 [facility] ([facility]) Is patient fasting? N {SOURCE: Random Void~NURSE COLLECTED? N Is patient fasting? N MCH 28.7 pg 27.0-34.0 [facility] ([facility]) Is patient fasting? N {SOURCE: Random Void~NURSE COLLECTED? N Is patient fasting? N MPV 9.2 fL 7.4-10.4 [facility] ([facility]) Is patient fasting? N {SOURCE: Random Void~NURSE COLLECTED? N Is patient fasting? N Platelets 202 10^3/uL 150-450 [facility] ([facility]) Is patient fasting? N {SOURCE: Random Void~NURSE COLLECTED? N Is patient fasting? N Neut 67.2 % 37.0-80.0 [facility] ([facility]) Is patient fasting? N {SOURCE: Random Void~NURSE COLLECTED? N Is patient fasting? N [place] 7.2 % 3.0-8.0 [facility] ([facility]) Is patient fasting? N {SOURCE: Random Void~NURSE COLLECTED? N Is patient fasting? N Eos 3.6 % 0.0-7.0 [facility] ([facility]) Is patient fasting? N {SOURCE: Random Void~NURSE COLLECTED? N Is patient fasting? N Lymph 21.5 % 25.0-40.0 Below low normal [facility] ( [facility]) Is patient fasting? N {SOURCE: Random Void~NURSE COLLECTED? N Is patient fasting? N Baso 0.2 % 0.0-2.0 [facility] ([facility]) Is patient fasting? N {SOURCE: Random Void~NURSE COLLECTED? N Is patient fasting? N %NRBC 0.0 % 0.0-0.0 [facility] ([facility]) Is patient fasting? N {SOURCE: Random Void~NURSE COLLECTED? N Is patient fasting? N %Ig 0.3 % 0.0-0.0 Above high normal [facility] ([facility]) Is patient fasting? N {SOURCE: Random Void~NURSE COLLECTED? N Is patient fasting? N #Neut 6.39 10^3/uL 2.00-6.90 [facility] ([facility]) Is patient fasting? N {SOURCE: Random Void~NURSE COLLECTED? N Is patient fasting? N #Lymph 2.04 10^3/uL 0.60-3.40 [facility] ([facility]) Is patient fasting? N {SOURCE: Random Void~NURSE COLLECTED? N Is patient fasting? N #[place] 0.68 10^3/uL 0.00-0.90 [facility] ([facility]) Is patient fasting? N {SOURCE: Random Void~NURSE COLLECTED? N Is patient fasting? N #Baso 0.02 10^3/uL 0.00-0.20 [facility]) Is patient fasting? N {SOURCE: Random Void~NURSE COLLECTED? N Is patient fasting? N #Ig 0.03 10^3/uL 0.00-0.10 [facility] ([facility]) Is patient fasting? N {SOURCE: Random Void~NURSE COLLECTED? N Is patient fasting? N #Eos 0.34 10^3/uL 0.00-0.70 [facility] ([facility]) Is patient fasting? N {SOURCE: Random Void~NURSE COLLECTED? N Is patient fasting? N #NRBC 0.00 10^3/uL 0.00-0.00 [facility] ([facility]) Is patient fasting? N {SOURCE: Random Void~NURSE COLLECTED? N Is patient fasting? N Manual Diff Laboratory test result M [facility] ([facility]) Is patient fasting? N {SOURCE: Random Void~NURSE COLLECTED? N Is patient fasting? N RBC Morph Laboratory test result [facility] ([facility]) Is patient fasting? N {SOURCE: Random Void~NURSE COLLECTED? N Is patient fasting? N ID Date Data Source [id number] 11/18/2019 07:45:00 PM EDT [facility] Name Value Range Interpretation Code Description Data Giovana rce(s) Supporting Document(s) [facility] Cholesterol [Mass/volume] in Serum or Plasma 220 MG/DL 131 - 200 H [facility] Deprecated Triglyceride [Mass/volume] in Serum or Plasma 250 MG/DL 3 5 - 160 H [facility] HDL 46 MG/DL 29 - 86 [facility] Cholesterol in LDL/Cholesterol in HDL [Mass Ratio] in Serum or Plasma 159 mg/dL 65 - 175 [facility] Cholesterol.total/Cholesterol in HDL [Mass Ratio] in Serum o r Plasma 4.8 3.4 - 4.9 [facility] LDL/HDL 3.46 1.00 - 3.55 [facility] CVE RISK CHOL/HDL LDL/HDLMEN: 1/2 AVERAGE 3.43 1.00 AVERAGE 4.97 3.55 2X AVERAGE 9.55 6.25 3X AVERAGE 23.99 7.99WOMEN: 1/2 AVERAGE 3.27 1.47 AVERAGE 4.44 3.22 2X AVERAGE 7.05 5.03 3X AVERAGE 11.04 6.14 ID Date Data Source [id number] 11/18/2019 07:27:00 PM EDT [facility] Name Value Range Interpretation Code Description Data Giovana rce(s) Supporting Document(s) URINALYSIS [facility] giovanna URINALYSIS SOURCE R [facility] COL[facility] yellow NORMAL: Yellow [facility] CLARITY clear NORMAL: Clear [facility] Specific gravity of Urine by Test strip 1.015 1.001 - 1.030 [facility] pH 5 5 - 9 [facility] Glucose [Mass/volume] in Urine by Test strip NORM NORMAL: Negat [facility] Bilirubin.total [Presence] in Urine by Test strip NEG NORMAL: Negative [facility] Ketones [Presence] in Urine by Test strip NEG NORMAL: Negative [facility] Protein [Mass/volume] in Urine by Test strip NEG NORMAL: Negat [facility] Nitrite [Presence] in Urine by Test strip NEG NORMAL: Negative [facility] BLOOD NEG NORMAL: Negative [facility] Leukocyte esterase [Presence] in Urine by Test strip NEG MILAGROS L: Negative [facility] Urobilinogen [Mass/volume] in Urine by Test strip NOR less vanessa n 1.0 mg/dL [facility] MICROSCOPIC Not Indicate [facility] ID Date Data Source [id number] 11/18/2019 07:44:00 PM EDT [facility] Name Value Range Interpretation Code Description Data Giovana rce(s) Supporting Document(s) Hemoglobin A1c/Hemoglobin.total in Blood 4.3 % 4.4 - 6.1 L [facility] {A1]{HB] ID Date Data Source [id number] 11/18/2019 07:54:00 PM EDT [facility] Name Value Range Interpretation Code Description Data Giovana rce(s) Supporting Document(s) Thyroxine (T4) free index in Serum or Plasma by calculation 0.72 NG/DL 0.93 - 1.70 L [facility] ID Date Data Source [id number] 11/18/2019 07:54:00 PM EDT [facility] Name Value Range Interpretation Code Description Data Giovana rce(s) Supporting Document(s) Thyrotropin [Units/volume] in Serum or Plasma by Detec tion limit <= 0.05 mIU/L 1.85 uIU/mL 0.47 - 5.01 [facility] ID Date Data Source [id number] 11/18/2019 07:45:00 PM EDT [facility] Name Value Range Interpretation Code Description Data Giovana rce(s) Supporting Document(s) COMPREHENSIVE METABOLIC PANEL [facility] COMPREHENSIVE METABOLIC PANEL Sodium [Moles/volume] in Serum or Plasma 142 mEq/L 134 - 153 [facility] Potassium [Moles/volume] in Serum or Plasma 4.0 mEq/L 3.6 - 5.0 [facility] Chloride [Moles/volume] in Serum or Plasma 104 mEq/L 98 - 107 [facility] Carbon dioxide, total [Moles/volume] in Serum or Plasma 27 MEQ/L 22 - 30 [facility] Glucose [Mass/volume] in Serum or Plasma 91 MG/DL 65 - 110 [facility] BUN 15 MG/DL 7 - 21 [facility] Creatinine [Mass/volume] in Serum or Plasma 0.9 MG/DL 0.7 - 1.5 [facility] BUN/CREAT 17 8 - 27 [facility] Protein [Mass/volume] in Serum or Plasma 7.6 G/DL 6.3 - 8.2 [facility] Albumin [Mass/volume] in Serum or Plasma 4.4 G/DL 3.9 - 5.0 [facility] Globulin [Mass/volume] in Serum by calculation 3.2 GM/DL 2.4 - 3.2 [facility] A/G RATIO 1.4 0.8 - 2.0 [facility] Calcium [Mass/volume] in Serum or Plasma 9.3 MG/DL 8.4 - 10.2 [facility] Bilirubin.total [Mass/volume] in Serum or Plasma <0.7 MG/DL 0.2 - 1.3 [facility] Alkaline phosphatase [Enzymatic activity/volume] in Serum or Plasma 114 U/L 38 - 126 [facility] Aspartate aminotransferase [Enzymatic activity/volume] in Serum or Plasma 22 U/L 5 - 40 [facility] Alanine aminotransferase [Enzymatic activity/volume] in Seru m or Plasma 34 U/L 7 - 56 [facility] Anion gap 3 in Serum or Plasma 11.0 mmol/L 8.0 - 16.0 [facility] AGE 29 yrs [facility] NON-AA GFR >60 mL/min [facility] AFR AMER GFR >60 mL/min [facility] Male GFR In terprentation [...] >32 mL/min Normal ID Date Data Source [id number] 11/18/2019 07:34:00 PM EDT [facility] Name Value Range Interpretation Code Description Data Giovana rce(s) Supporting Document(s) CBC W/AUTOMATED DIFF [facility] COMPLETE BLOOD COUNT Leukocytes [#/volume] in Blood by Automated count 9.5 10^3/uL 4.2 - 1 1.0 [facility] Erythrocytes [#/volume] in Blood by Automated count 5.74 10^6/uL 4. 50 - 6.30 [facility] Hemoglobin [Mass/volume] in Blood 16.5 g/dL 14.0 - 16.0 H [facility] Hematocrit [Volume Fraction] of Blood by Automated count 50.2 % 4 1.0 - 51.0 [facility] Erythrocyte mean corpuscular volume [Entitic volume] by Auto mated count 87.5 fL 80.0 - 94.0 [facility] Erythrocyte mean corpuscular hemoglobin [Entitic mass] by Automated count 28.7 pg 27.0 - 34.0 [facility] Erythrocyte mean corpuscular hemoglobin concentration [Mass/volume] by Automated count 32.9 g/dL 31.0 - 36.0 [facility] Erythrocyte distribution width [Ratio] by Automated count 13.7 % 11.5 - 14.8 [facility] Platelets [#/volume] in Blood by Automated count 202 10^3/uL 150 - 45 0 [facility] Platelet mean volume [Entitic volume] in Blood by Automated count 9.2 fL 7.4 - 10.4 [facility] Neutrophils/100 leukocytes in Blood by Automated count 67.2 % 37. 0 - 80.0 [facility] Lymphocytes/100 leukocytes in Blood by Manual count 21.5 % 25.0 - 40.0 L [facility] Monocytes/100 leukocytes in Blood by Automated count 7.2 % 3.0 - 8.0 [facility] Eosinophils/100 leukocytes in Blood by Automated count 3.6 % 0.0 - 7.0 [facility] Basophils/100 leukocytes in Blood by Automated count 0.2 % 0.0 - 2.0 [facility] %IG 0.3 % 0.0 - 0.0 H [facility] %NRBC 0.0 % 0.0 - 0.0 [facility] Neutrophils [#/volume] in Blood by Automated count 6.39 10^3/uL 2.00 - 6.90 [facility] Lymphocytes [#/volume] in Blood by Automated count 2.04 10^3/uL 0.60 - 3.40 [facility] Monocytes [#/volume] in Blood by Automated count 0.68 10^3/uL 0.00 - 0.90 [facility] Eosinophils [#/volume] in Blood by Automated count 0.34 10^3/uL 0.00 - 0.70 [facility] Basophils [#/volume] in Blood by Automated count 0.02 10^3/uL 0.00 - 0.20 [facility] #IG 0.03 10^3/uL 0.00 - 0.10 [facility] #NRBC 0.00 10^3/uL 0.00 - 0.00 [facility] MANUAL DIFF NOT INDICATED [facility] RBC MORPH NOT INDICATED [facility] spital ID Date Data Source [id number] 11/18/2019 03:08:00 PM EDT [facility] ([facility]) Name Value Range Interpretation Code Description Data Giovana rce(s) Supporting Document(s) Spine LS Complete <pending> [facility] ([facility]) Spine Thoracic <pending> [facility] ([facility]) ID Date Data Source [id number] 10/25/2019 08:46:00 [place] [address] PHONE: [phone] FAX: [phone] Name .................. : GAVIOTA Madison Acct Number.................. : [id number] ROOM. ................. : TR-02 Number ................... : [id number] Stay type ............. : E/R Discharge Date......... ... : 10/21/19 Admit Date ......... : 10/21/19 Admit Phys .................... : KHANH LANTIGUA Date of ....... : 1990 Family Phys ................... : NO PCP Phone .................. : [phone] Age ................................ : 29 Film# .................. .:[id number] Sex ................................. : M Unsigned transcriptions are preliminary reports and do not represent a medical or legal document CT ABD & PELV W/O ORAL W/O IV [id number] COMPLETE:10/21/19 19:36 [facility] [id number] Reason(s): gross hematuria x [address] [...] fat-containing inguinal hernias. Page 1 of [address] [place] [address] PHONE: [phone] FAX: [phone] Name .................. : GAVIOTA Madison Acct Number.................. : [id number] ROOM. ................. : TR-02 MR Number ................... : [id number] Stay type ............. : E/R Discharge Date......... ... : 10/21/19 Admit Date ......... : 10/21/19 Admit Phys .................... : CHUYITAS BR Date of ....... : 1990 Family Phys ................... : NO PCP Phone .................. : [phone] Age ................................ : 29 Film# .................. .:[id number] Sex ................................. : M Unsigned transcriptions are preliminary reports and do not represent a medical or legal document CT ABD & PELV W/O ORAL W/O IV [id number] COMPLETE:10/21/19 19:36 [facility] [id number] Reason(s): gross hematuria x 3 weeks Evaluation [...] rce(s) Supporting Document(s) ID Date Data Source [id number] 10/21/2019 03:31:00 PM EDT [facility] 1 OrderSheet [facility] Emergency Department [address] [place] [address] Phone #: [phone] 10/21/2019 15:22 Patient: NICK TRUJILLO Sex: M : 1990 Age: 29yWEIGHT:176.4 kg HEIGHT:71 inches BMI:54.3ALLERGIES: Dilantin, Naproxsyn, Tylenol with codeinCHIEF COMPLAINT: dysuriaDIAGNOSIS: Renal colic, Blood in urineLAB ORDERSOrder Description Priority Entered Acknowledged InitialedUrinalysis (Clean STAT 15:30 10/21/2019 15:31 Rehana Crane) Morgan TANG; Kota MINOR w Diff STAT 16:14 10/21/2019 Ack'd: 16:20 16:44 Morgan Crane; Kota Crane R.N., R.N.CMP STAT 16:14 10/21/2019 Ack'd: 16:20 16:44 Morgan Crane; Kota Crane R.N. R.NShayDIAGNOSTIC STUDY ORDERSOrder Description Priority Entered Acknowledged InitialedCT ABD PEL W/O STAT 16:14 10/21/2019 Ack'd: 16:20 16:44 Royce,Oral W/O IV Morgan TANG; Kota Crane R.N.Contrast R.N.(Oxygen?(No))(IV?(No)) Reason for Study: gross hematuria x 3 weeksMEDICATION/IV/DRIP/FLUID ORDERSOrder Description Priority Entered Acknowledged InitialedGENERAL ORDERSOrder Description Priority Entered Acknowledged Initialed[Electronically signed by Kota Crane R.N. (17:42 10/21/2019)][Electronically signed by Morgan Pedraza (18:16 10/21/2019)][Electronically locked by Kota Crane R.N. (17:42 10/21/2019)] Name Value Range Interpretation Code Description Data Giovana rce(s) Supporting Document(s) ID Date Data Source [id number] 10/21/2019 03:31:00 PM EDT [facility] 1 Medication Reconciliation Report [facility] Emergency Department [address] [place] [address] Phone #: ext- [phone] 10/21/2019 15:22 Patient: [...] Dispense 28capsule. Refills: 0. Substitution permitted.Pharmacy - [id number] - [id number] [facility] ; [place], [place] [id number]. . -- CLYDE Milton Name Value Range Interpretation Code Description Data Giovana rce(s) Supporting Document(s) ID Date Data Source [id number] 10/21/2019 03:31:00 PM EDT [facility] 1 Medication Administration Record [facility] Emergency Department [address] [place] [address] Phone #: ext- [phone] 10/21/2019 15:22 Patient: NICK TRUJILLO Sex: M : 1990 Age: 29yWeight: 176.4 kgHeight/Length: 71 inBMI: 54.3ALLERGIES: Naproxsyn, Tylenol with codein, DilantinDate/Time Medication Administered Medication Ordered Name Value Range Interpretation Code Description Data Giovana rce(s) Supporting Document(s) ID Date Data Source [id number] 10/21/2019 03:31:00 PM EDT [facility] 1 General Instructions [facility] Emergency Department [address] [place] [address] Phone #: ext- [phone] 10/21/2019 15:22 Patient: [...] Dispense 28capsule. Refills: 0. Substitution permitted.Pharmacy - [id number] - [address] [place], [place] [phone]. .Follow-up:Follow up with your healthcare provider in [...] INFORMATIONBlood in the Urine 2 General Instructions [facility] Emergency Department [address] [place] [address] Phone #: ext- [phone] 10/21/2019 15:22 Patient: NICK TRUJILLO Sex: M [...] had blood in your 3 General Instructions [facility] Emergency Department [address] [place] [address] Phone #: ext- [phone] 10/21/2019 15:22 Patient: [...] the nose or gums or easy bruising [id number] [employer]. [address] [place], [place] [address]. All rights reserved. This information is not [...] rce(s) Supporting Document(s) ID Date Data Source [id number] 10/21/2019 03:31:00 PM EDT [facility] 1 Clinical Report - Nurses [facility] Emergency Department [address] [place] [address] Phone #: ext- [phone] 10/21/2019 15:22 Patient: [...] --15:25 10/21/19 Kota Crane R.N.Tylenol with codein. --15:10/21/19 Kota Crane R.N.Naproxsyn. --15:10/21/19 Kota Crane R.N.PROBLEMS:Asthma.Seziures. --15:10/21/19 Kota Crane R.N.ADDITIONAL SURGERIES:Hernia Repair. --15:10/21/19 Kota [...] before today?". 2 Clinical Report - Nurses [facility] Emergency Department [address] [place] [address] Phone #: ext- [phone] 10/21/2019 15:22 Patient: [...] assessment completed. No skin integrity risk identified. --15:26 10/21/19 Kota Crane R.N. Interventions Identification band on patient. To treatment room. --15:26 10/21/19 Kota Crane R.N.PHYSICAL ASSESSMENT( Pt having trouble [...] Kota Crane R.N.NURSING PROGRESS NOTESPatient transported to MT by wheelchair with quality lab technician. --16:41 10/21/19 Kota Crane R.N. 17:01 10/21/19. BP: 127/71. MAP: 89. HR: 104. RR: 18. O2 saturation: 99%. --17:02 10/21/19 [facility] Tech, [facility] Tech1.DISPOSITION / DISCHARGE 17:38 10/21/19. BP: 125/78. MAP: 93. HR: 98. RR: 18. O2 saturation: 99%. Temp: 98.6 F. --17:38 10/21/19 [facility] Tech, [facility], ER Tech1 Condition at departure: unchanged. Discharge instructions provided and reviewed with the patient. Reviewed medication(s). Prescription(s) sent electronically to pharmacy. Patient verbalized understanding. Written instructions provided in Lebanese. The patient was discharged by the physician. He was discharged home. He left ambulatory. Patient driving. --17:41 10/21/19 Kota Crane R.N. 17:41 10/21/19. Pain level now 0/10. --17:41 10/21/19 Kota Crane R.N. 3 Clinical Report - Nurses [facility] Emergency Department [address] [place] [address] Phone #: ext- [phone] 10/21/2019 15:22 Patient: INCK TRUJILLO Sex: Miroslava : 1990 Age: 29yLocked/Released at 10/21/2019 17:42 by Kota Crane R.N. Name Value Range Interpretation Code Description Data Giovana rce(s) Supporting Document(s) ID Date Data Source [id number] 10/21/2019 03:31:00 PM EDT [facility] 1 Clinical Report - Physicians/Mid Levels [facility] Emergency Department [address] [place] [address] Phone #: ext- [phone] 10/21/2019 15:22 Patient: [...] allergies. 2 Clinical Report - Physicians/Mid Levels [facility] Emergency Department [address] [place] [address] Phone #: ext- [phone] 10/21/2019 15:22 Patient: NICK TRUJILLO Sex: M [...] results 3 Clinical Report - Physicians/Mid Levels [facility] Emergency Department [address] [place] [address] Phone #: ext- [phone] 10/21/2019 15:22 Patient: [...] treatment. 4 Clinical Report - Physicians/Mid Levels [facility] Emergency Department [address] [place] [address] Phone #: ext- [phone] 10/21/2019 15:22 Patient: NICK TRUJILLO Sex: M [...] capsule. Refills: 0. Substitution permitted. Pharmacy - [id number] - [address] [facility] ; [place], [place] [phone]. . Follow- up: Follow up with your [...] Name Value Range Interpretation Code Description Data [facility] rce(s) Supporting Document(s) ID Date Data Source [id number] 10/21/2019 04:27:00 PM EDT [facility] ([facility]) Name Value Range Interpretation Code Description Data [facility] rce(s) Supporting Document(s) Comprehensive [facility] Laboratory test result [facility]) COMPREHENSIVE METABOLIC PANEL Chloride 106 meq/L 98-107 [facility] ([facility]) Potassium 4.0 meq/L 3.6-5.0 [facility] ([facility]) Sodium 144 meq/L 134-153 [facility] ([facility]) Co2 25 meq/L 22-30 [facility] ([facility]) BUN 10 mg/dL 7-21 [facility] ([facility]) Glucose 102 mg/dL 65-110 [facility] ([facility]) Creatinine 0.8 mg/dL 0.7-1.5 [facility] ([facility]) BUN/Creat 13 8-27 [facility] ([facility]) Total Protein 7.7 g/dL 6.3-8.2 [facility] ([facility]) Albumin 4.4 g/dL 3.9-5.0 [facility] ([facility]) Globulin 3.3 GM/DL 2.4-3.2 Above high normal [facility] ([facility]) Calcium 9.1 mg/dL 8.4-10.2 [facility] ([facility]) A/G Ratio 1.3 0.8-2.0 [facility] ([facility]) Total Bili Laboratory test result 0.2-1.3 [facility] ([facility]) Alkaline Phos 104 U/L 38-126 [facility] ([facility]) Sgot/Ast 27 U/L 5-40 [facility] ([facility]) Anion Gap 13.0 mmol/L 8.0-16.0 [facility] ([facility]) SGPT/Alt 43 U/L 7-56 [facility] ([facility]) Age 29 yrs [facility] ([facility]) Afr Amer GFR Laboratory test result [facility] ([facility]) Male GFR Interprentation 20-49 yrs >60 [...] mL/min Normal Non-Aa GFR Laboratory test result [facility] ([facility]) ID Date Data Source [id number] 10/21/2019 04:27:00 PM EDT [facility] ([facility]) Name Value Range Interpretation Code Description Data Giovana rce(s) Supporting Document(s) CBC W/Automated Diff Laboratory test result [facility] ([facility]) COMPLETE BLOOD COUNT WBC 9.1 10^3/uL 4.2-11.0 [facility] ([facility]) RBC 5.69 10^6/uL 4.50-6.30 [facility] ([facility]) Hemoglobin 16.3 g/dL 14.0-16.0 Above high normal [facility] ([facility]) Hematocrit 50.9 % 41.0-51.0 [facility] ([facility]) MCV 89.5 fL 80.0-94.0 [facility] ([facility]) MCH 28.6 pg 27.0-34.0 [facility] ([facility]) RDW 13.9 % 11.5-14.8 [facility] ([facility]) MCHC 32.0 g/dL 31.0-36.0 [facility] ([facility]) MPV 8.9 fL 7.4-10.4 [facility] ([facility]) Platelets 224 10^3/uL 150-450 [facility] ([facility]) Neut 72.7 % 37.0-80.0 [facility] ([facility]) Lymph 15.4 % 25.0-40.0 Below low normal [facility] ( [facility]) [place] 9.1 % 3.0-8.0 Above high normal [facility] ([facility]) Baso 0.2 % 0.0-2.0 [facility] ([facility]) Eos 2.4 % 0.0-7.0 [facility] ([facility]) %Ig 0.2 % 0.0-0.0 Above high normal [facility] ([facility]) %NRBC 0.0 % 0.0-0.0 [facility] ([facility]) #Neut 6.61 10^3/uL 2.00-6.90 [facility] ([facility]) #[place] 0.83 10^3/uL 0.00-0.90 [facility] ([facility]) #Lymph 1.40 10^3/uL 0.60-3.40 [facility] ([facility]) #Eos 0.22 10^3/uL 0.00-0.70 [facility] ([facility]) #Baso 0.02 10^3/uL 0.00-0.20 [facility] ([facility]) #Ig 0.02 10^3/uL 0.00-0.10 [facility] ([facility]) #NRBC 0.00 10^3/uL 0.00-0.00 [facility] ([facility]) Manual Diff Laboratory test result [facility] ([facility]) RBC Morph [facility] ID Date Data Source [id number] 10/21/2019 05:29:00 PM EDT [facility] Name Value Range Interpretation Code Description Data Giovana rce(s) Supporting Document(s) COMPREHENSIVE METABOLIC PANEL [facility] COMPREHENSIVE METABOLIC PANEL Sodium [Moles/volume] in Serum or Plasma 144 mEq/L 134 - 153 [facility] Potassium [Moles/volume] in Serum or Plasma 4.0 mEq/L 3.6 - 5.0 [facility] Chloride [Moles/volume] in Serum or Plasma 106 mEq/L 98 - 107 [facility] Carbon dioxide, total [Moles/volume] in Serum or Plasma 25 MEQ/L 22 - 30 [facility] Glucose [Mass/volume] in Serum or Plasma 102 MG/DL 65 - 110 [facility] BUN 10 MG/DL 7 - 21 [facility] al Creatinine [Mass/volume] in Serum or Plasma 0.8 MG/DL 0.7 - 1.5 [facility] BUN/CREAT 13 8 - 27 [facility] al Protein [Mass/volume] in Serum or Plasma 7.7 G/DL 6.3 - 8.2 [facility] Albumin [Mass/volume] in Serum or Plasma 4.4 G/DL 3.9 - 5.0 [facility] Globulin [Mass/volume] in Serum by calculation 3.3 GM/DL 2.4 - 3.2 H [facility] A/G RATIO 1.3 0.8 - 2.0 [facility] Calcium [Mass/volume] in Serum or Plasma 9.1 MG/DL 8.4 - 10.2 [facility] Bilirubin.total [Mass/volume] in Serum or Plasma <0.7 MG/DL 0.2 - 1.3 [facility] Alkaline phosphatase [Enzymatic activity/volume] in Serum or Plasma 104 U/L 38 - 126 [facility] Aspartate aminotransferase [Enzymatic activity/volume] in Serum or Plasma 27 U/L 5 - 40 [facility] Alanine aminotransferase [Enzymatic activity/volume] in Seru m or Plasma 43 U/L 7 - 56 [facility] Anion gap 3 in Serum or Plasma 13.0 mmol/L 8.0 - 16.0 [facility] AGE 29 yrs [facility] NON-AA GFR >60 mL/min [facility] ital AFR AMER GFR >60 mL/min [facility] Male GFR In terprentation [...] >32 mL/min Normal ID Date Data Source [id number] 10/21/2019 04:43:00 PM EDT [facility] Name Value Range Interpretation Code Description Data Giovana rce(s) Supporting Document(s) CBC W/AUTOMATED DIFF [facility] COMPLETE BLOOD COUNT Leukocytes [#/volume] in Blood by Automated count 9.1 10^3/uL 4.2 - 1 1.0 [facility] Erythrocytes [#/volume] in Blood by Automated count 5.69 10^6/uL 4. 50 - 6.30 [facility] Hemoglobin [Mass/volume] in Blood 16.3 g/dL 14.0 - 16.0 H [facility] Hematocrit [Volume Fraction] of Blood by Automated count 50.9 % 4 1.0 - 51.0 [facility] Erythrocyte mean corpuscular volume [Entitic volume] by Auto mated count 89.5 fL 80.0 - 94.0 [facility] Erythrocyte mean corpuscular hemoglobin [Entitic mass] by Automated count 28.6 pg 27.0 - 34.0 [facility] Erythrocyte mean corpuscular hemoglobin concentration [Mass/volume] by Automated count 32.0 g/dL 31.0 - 36.0 [facility] Erythrocyte distribution width [Ratio] by Automated count 13.9 % 11.5 - 14.8 [facility] Platelets [#/volume] in Blood by Automated count 224 10^3/uL 150 - 45 0 [facility] Platelet mean volume [Entitic volume] in Blood by Automated count 8.9 fL 7.4 - 10.4 [facility] Neutrophils/100 leukocytes in Blood by Automated count 72.7 % 37. 0 - 80.0 [facility] Lymphocytes/100 leukocytes in Blood by Manual count 15.4 % 25.0 - 40.0 L [facility] Monocytes/100 leukocytes in Blood by Automated count 9.1 % 3.0 - 8.0 H [facility] Eosinophils/100 leukocytes in Blood by Automated count 2.4 % 0.0 - 7.0 [facility] Basophils/100 leukocytes in Blood by Automated count 0.2 % 0.0 - 2.0 [facility] %IG 0.2 % 0.0 - 0.0 [facility] %NRBC 0.0 % 0.0 - 0.0 [facility] al Neutrophils [#/volume] in Blood by Automated count 6.61 10^3/uL 2.00 - 6.90 [facility] Lymphocytes [#/volume] in Blood by Automated count 1.40 10^3/uL 0.60 - 3.40 [facility] Monocytes [#/volume] in Blood by Automated count 0.83 10^3/uL 0.00 - 0.90 [facility] Eosinophils [#/volume] in Blood by Automated count 0.22 10^3/uL 0.00 - 0.70 [facility] Basophils [#/volume] in Blood by Automated count 0.02 10^3/uL 0.00 - 0.20 [facility] #IG 0.02 10^3/uL 0.00 - 0.10 [facility] ospital #NRBC 0.00 10^3/uL 0.00 - 0.00 [facility] MANUAL DIFF NOT INDICATED [facility] RBC MORPH NOT INDICATED [facility] ID Date Data Source [id number] 10/21/2019 03:35:00 PM EDT [facility] ([facility]) Name Value Range Interpretation Code Description Data Giovana rce(s) Supporting Document(s) Urinalysis Laboratory test result [facility]) SOURCE: Clean Catch Source Laboratory test result [facility]) SOURCE: Clean Catch Color Laboratory test result [facility]) SOURCE: Clean Catch pH 5 5-9 [facility] ([facility]) SOURCE: Clean Catch Clarity Laboratory test result [facility]) SOURCE: Clean Catch Spec [place] 1.010 1.001-1.030 [facility] ([facility]) SOURCE: Clean Catch Glucose Laboratory test result [facility]) SOURCE: Clean Catch Bilirubin Laboratory test result [facility]) SOURCE: Clean Catch Ketone Laboratory test result [facility]) SOURCE: Clean Catch Protein Laboratory test result [facility]) SOURCE: Clean Catch Blood 10 Abnormal (applies to non-numeric res ults) [facility] ([facility]) SOURCE: Clean Catch Nitrite Laboratory test result [facility] ([facility]) SOURCE: Clean Catch Urobilinogen Laboratory test result [facility]) SOURCE: Clean Catch Leuk Est Laboratory test result [facility]) SOURCE: Clean Catch RBC Laboratory test result [facility]) SOURCE: Clean Catch Microscopic Laboratory test result M [facility] ([facility]) SOURCE: Clean Catch Epithelial Laboratory test result [facility]) SOURCE: Clean Catch ID Date Data Source [id number] 10/21/2019 04:12:00 PM EDT [facility] Name Value Range Interpretation Code Description Data Giovana rce(s) Supporting Document(s) URINALYSIS [facility] giovanna URINALYSIS SOURCE Clean Catch [facility] COLOR yellow NORMAL: Yellow [facility] CLARITY clear NORMAL: Clear [facility] Specific gravity of Urine by Test strip 1.010 1.001 - 1.030 [facility] pH 5 5 - 9 [facility] Glucose [Mass/volume] in Urine by Test strip NORM NORMAL: Negat [facility] Bilirubin.total [Presence] in Urine by Test strip NEG NORMAL: Negative [facility] Ketones [Presence] in Urine by Test strip NEG NORMAL: Negative [facility] Protein [Mass/volume] in Urine by Test strip NEG NORMAL: Negat [facility] Nitrite [Presence] in Urine by Test strip NEG NORMAL: Negative [facility] BLOOD 10 NORMAL: Negative A [facility] Leukocyte esterase [Presence] in Urine by Test strip NEG MILAGROS L: Negative [facility] Urobilinogen [Mass/volume] in Urine by Test strip NOR less vanessa n 1.0 mg/dL [facility] MICROSCOPIC See Below [facility] ital Erythrocytes [#/volume] in Urine by Test strip 0 - 1 NORMAL: NON E SEEN [facility] EPITHELIAL FEW NORMAL: NONE SEEN [facility] Hospital ID Date Data Source [id number] 09/14/2019 03:51:00 PM [facility] Patient Name: NICK TRUJILLO : 1990 Sex: M Pt Unit #: [id number] Location:[facility] Provider: Visit Date/Time: 09/14/19 Primary Insurance: [facility] Secondary Insurance: Self Pay Intake [...] - ages 13-64 HIV testing Offer: No [facility] Social History (Updated 09/14/19 @ 15:51 by [...] arrange this because he is moving to [facility] this month and it may be hard to keep appointments. Here with forms for DSS to get some home health services. He seems to identify the problem with his right foot as the main reason for this. He has been seeing a surgeon in [place] for this and they are apparently recommending [...] of unspecified foot, initial encounter SNOMED Code(s): 206463621 Category: Medical Plan - Kota Anderson MD: Possibly soft tissue but worth doing an X ray to look at possible fractures. Continue conservative treatment. Encouraged him to consider taking Tylenol more often. (2) Low back pain at multiple sites: Status: Acute Code(s): M54.5 - Low back pain SNOMED Code(s): 391713347 Category: Medical Plan - Kota Anderson MD: [...] rce(s) Supporting Document(s) ID Date Data Source [id number] 08/12/2019 02:08:00 PM [facility] Patient Name: NICK TRUJILLO : 1990 Sex: M Pt Unit #: [id number] Location:[facility] Provider: Visit Date/Time: 08/12/19 Primary Insurance: [facility] Secondary Insurance: Self Pay Intake [...] states medicine Dr. Anderson prescribed is working [employer] Required: No Is patient in pain?: Yes [...] offer been met?: Patient reports past refusal [facility] Medical History Acne (Chronic) Acne vulgaris (Acute [...] obesity due to excess calories SNOMED Code(s): 523648615 Category: Medical Electronically Signed By: <Electronically signed by Lance Arenas DO> Date/Time Signed: 08/12/19 1432 Name Value Range Interpretation Code Description Data Giovana rce(s) Supporting Document(s) Procedure Social History Code Duration Value Status Description Data Source(s ) Alcohol intake 06/28/2020 12:00:00 AM EST Current non-d roscoe of alcohol (finding) completed Current non-drinker of alcohol (finding) [facility] Tobacco use and exposure 06/28/2020 12:00:00 AM EST Never used co mpleted Never used [facility] Smoking 06/28/2020 12:00:00 AM EST Never smoker completed Never s [facility] Alcohol intake 06/06/2020 12:00:00 AM EST Current non-d roscoe of alcohol (finding) completed Current non-drinker of alcohol (finding) [facility] Alcohol intake 05/09/2020 12:00:00 AM EDT Current non-d roscoe of alcohol (finding) completed Current non-drinker of alcohol (finding) [facility] Alcohol intake 04/26/2020 12:00:00 AM EDT Current non-d roscoe of alcohol (finding) completed Current non-drinker of alcohol (finding) [facility] Alcohol intake 02/09/2020 12:00:00 AM EDT No completed [facility] Smoking 02/09/2020 12:00:00 AM EDT Never smoker completed Never s [facility] Alcohol intake 02/04/2020 12:00:00 AM EDT No completed [facility] Smoking 02/04/2020 12:00:00 AM EDT Never smoker completed Never s moker [facility] Caffeine Use Details 10/06/2019 12:00:00 AM EDT completed [facility] ([facility]) 10/06/2019 12:00:00 AM EDT Never smoked tobacco comple sheri Never smoked tobacco [facility] Smoking 10/06/2019 12:00:00 AM EDT Never smoker completed Never s moker [facility] ([facility]) 09/14/2019 03:51:40 PM EST Never smoker completed Never s [facility] Smoking 09/14/2019 03:51:00 PM EST Never smoker completed Never s [facility] 08/12/2019 02:22:00 PM EST Never smoker completed Never s [facility] 08/12/2019 02:22:00 PM EST No completed No [facility] 08/12/2019 02:22:00 PM EST No completed No [facility] Vital Signs ID Date Data Source UNK Name Value Range Interpretation Code Description Data Source(s) Diastolic blood pressure 80 mm[Hg] 80 mm[Hg] eCW1 ([facility]) Systolic blood pressure 116 mm[Hg] 116 mm[Hg] e CW1 ([facility]) Body temperature 96.7 [degF] 96.7 [degF] eCW1 ( [facility]) Respiratory rate 18 /min 18 /min eCW1 ([facility]) Heart rate 112 /min 112 /min eCW1 (Counts include 234 beds at the [facility]) Body mass index (BMI) [Ratio] 56.62 kg/m2 56.62 kg/m2 eCW1 ([facility]) Body height 71 [in_i] 71 [in_i] eCW1 ([facility]) Body weight 406 [lb_av] 406 [lb_av] [facility] ([facility]) Body surface area Derived from formula 2.86 m2 2.[address] [facility] ([facility]) Body weight 185.579 kg 185.[address] [facility] ([facility]) [place] body weight 172 [lb_av] 172 [lb_av] [facility] ([facility]) Body mass index (BMI) [Ratio] 57.1 kg/m2 57.1 k g/m2 [facility] ([facility]) Body weight 409.12 [lb_av] 409.12 [lb_av] [facility] ([facility]) Body height 71 [in_i] 71 [in_i] [facility] ([facility]) 5'11" Diastolic blood pressure 88 mm[Hg] 88 mm[Hg] [facility] [facility] ([facility], ) Systolic blood pressure 154 mm[Hg] 154 mm[Hg] [facility]) Body surface area Derived from formula 2.79 m2 2.[address] [facility] ([facility]) Body weight 184.162 kg 184.[address] [facility] ([facility]) [place] body weight 160 [lb_av] 160 [lb_av] MEDEN T ([facility]) Body mass index (BMI) [Ratio] 59.9 kg/m2 59.9 k g/m2 [facility] ([facility]) Body weight 406.00 [lb_av] 406.00 [lb_av] [facility] Body height 69 [in_i] 69 [in_i] [facility] ([facility]) 5'9" Body temperature 96.8 [degF] 96.8 [degF] [facility] ([facility]) Oxygen saturation in Arterial blood by Pulse oximetry 99 % 99 % [facility] ([facility]) Heart rate 99 /min 99 /min [facility] ([facility]) Diastolic blood pressure 80 mm[Hg] 80 mm[Hg] [facility] ([facility]) Systolic blood pressure 122 mm[Hg] 122 mm[Hg] M [facility] ([facility]) Diastolic blood pressure 86 mm[Hg] 86 mm[Hg] eCW1 ([facility]) Systolic blood pressure 132 mm[Hg] 132 mm[Hg] e CW1 ([facility]) Body temperature 97.1 [degF] 97.1 [degF] eCW1 ( [facility]) Respiratory rate 18 /min 18 /min eCW1 ([facility]) Heart rate 101 /min 101 /min eCW1 (Counts include 234 beds at the [facility]) Body mass index (BMI) [Ratio] 57.32 kg/m2 57.32 kg/m2 [facility] ([facility]) Body height 71 [in_i] 71 [in_i] eCW1 ([facility]) Body weight 411 [lb_av] 411 [lb_av] eCW1 ([facility]) Diastolic blood pressure 82 mm[Hg] 82 mm[Hg] eCW1 ([facility]) Systolic blood pressure 136 mm[Hg] 136 mm[Hg] e CW1 ([facility]) Body mass index (BMI) [Ratio] 59.41 kg/m2 59.41 kg/m2 W1 ([facility]) Body height 71 [in_i] 71 [in_i] eCW1 ([facility]) Body weight 426 [lb_av] 426 [lb_av] eCW1 ([facility]) Diastolic blood pressure 92 mm[Hg] 92 mm[Hg] eCW1 ([facility]) Systolic blood pressure 138 mm[Hg] 138 mm[Hg] e CW1 ([facility]) Body mass index (BMI) [Ratio] 57.46 kg/m2 57.46 kg/m2 W1 ([facility]) Body height 71 [in_i] 71 [in_i] eCW1 ([facility]) Body weight 412 [lb_av] 412 [lb_av] eCW1 ([facility]) Body weight 180.986 kg 180.986 kg MEDENT ([facility]) Body weight 399.00 [lb_av] 399.00 [lb_av] MED[facility] T ([facility]) Oxygen saturation in Arterial blood by Pulse oximetry 98 % 98 % [facility] ([facility]) Respiratory rate 18 /min 18 /min [facility] ( [facility]) Body temperature 97.6 [degF] 97.6 [degF] [facility] Heart rate 96 /min 96 /min MED[facility] ([facility]) Diastolic blood pressure 78 mm[Hg] 78 mm[Hg] [facility] ([facility]) Systolic blood pressure 132 mm[Hg] 132 mm[Hg] M EDENT ([facility]) Diastolic blood pressure 61 mm[Hg] 61 mm[Hg] [facility] Systolic blood pressure 120 mm[Hg] 120 mm[Hg] [facility] Oxygen saturation in Arterial blood by Pulse oximetry 93 % 93 % [facility] Body temperature 36.5 Opal 36.5 Opal [facility] Respiratory rate 16 /min 16 /min [facility] Heart rate 88 /min 88 /min [facility] Body mass index (BMI) [Ratio] 55.37 kg/m2 55.37 kg/m2 [facility] Body weight 180.078 kg 180.078 kg [facility] Body height 180.3 cm 180.3 cm [facility] Oxygen saturation in Arterial blood by Pulse oximetry 95 % 95 % [facility] Body mass index (BMI) [Ratio] 55.50 kg/m2 55.50 kg/m2 [facility] Body weight 180.486 kg 180.486 kg [facility] Body height 180.3 cm 180.3 cm [facility] Heart rate 96 /min 96 /min [facility] Diastolic blood pressure 61 mm[Hg] 61 mm[Hg] [facility] Systolic blood pressure 112 mm[Hg] 112 mm[Hg] [facility] Body weight 180.533 kg 180.533 kg MEDENT ([facility] tive [facility]) Body mass index (BMI) [Ratio] 55.5 kg/m2 55.5 k g/m2 [facility] ([facility]) Heart rate 96 /min 96 /min [facility] ([facility]) Diastolic blood pressure 79 mm[Hg] 79 mm[Hg] [facility] ([facility]) Systolic blood pressure 143 mm[Hg] 143 mm[Hg] M EDENT ([facility]) Body weight 398.00 [lb_av] 398.00 [lb_av] MEDEN T ([facility]) Temp 97.7 Body height 71 [in_i] 71 [in_i] [facility] ([facility] tive [facility]) 5'11" Body weight 180.533 kg 180.533 kg MED[facility] ([facility]) Body weight 398.00 [lb_av] 398.00 [lb_av] MEDEN T ([facility]) Oxygen saturation in Arterial blood by Pulse oximetry 97 % 97 % [facility] Respiratory rate 22 /min 22 /min [facility] ( [facility]) Body temperature 97.6 [degF] 97.6 [degF] [facility] ([facility]) Heart rate 86 /min 86 /min [facility] Diastolic blood pressure 72 mm[Hg] 72 mm[Hg] [facility] ([facility]) Systolic blood pressure 130 mm[Hg] 130 mm[Hg] M EDENT ([facility]) Body surface area 2.79 m2 2.79 m2 [facility] ([facility]) Body mass index (BMI) [Ratio] 54.1 kg/m2 54.1 k g/m2 [facility] ([facility]) Body height 71 [in_i] 71 [in_i] [facility] 5'11" Body weight 175.997 kg 175.997 kg [facility] ([facility]) per chart Body weight 388.00 [lb_av] 388.00 [lb_av] MED[facility] T ([facility]) Body surface area 2.79 m2 2.79 m2 [facility] ([facility]) Body mass index (BMI) [Ratio] 54.1 kg/m2 54.1 k g/m2 [facility] ([facility]) Body height 71 [in_i] 71 [in_i] [facility] ([facility]) 5'11" Body weight 175.997 kg 175.997 kg [facility] ([facility]) Body weight 388.00 [lb_av] 388.00 [lb_av] MED[facility] T ([facility]) Oxygen saturation in Arterial blood by Pulse oximetry 96 % 96 % [facility] Respiratory rate 24 /min 24 /min [facility] ( [facility]) wearing mask Body temperature 97.8 [degF] 97.8 [degF] [facility] ([facility]) Heart rate 76 /min 76 /min [facility] ([facility]) Diastolic blood pressure 58 mm[Hg] 58 mm[Hg] [facility] ([facility]) Systolic blood pressure 126 mm[Hg] 126 mm[Hg] M EDENT ([facility]) Body surface area 2.78 m2 2.78 m2 [facility] Body mass index (BMI) [Ratio] 53.6 kg/m2 53.6 k g/m2 [facility] ([facility]) Body height 71 [in_i] 71 [in_i] [facility] 5'11" Body weight 174.296 kg 174.296 kg [facility] ([facility]) Body weight 384.25 [lb_av] 384.25 [lb_av] MEDEN T ([facility]) Oxygen saturation in Arterial blood by Pulse oximetry 98 % 98 % [facility] Respiratory rate 18 /min 18 /min [facility] ( [facility]) Body temperature 98.0 [degF] 98.0 [degF] [facility] Heart rate 94 /min 94 /min [facility]) Diastolic blood pressure 64 mm[Hg] 64 mm[Hg] [facility] Systolic blood pressure 118 mm[Hg] 118 mm[Hg] [facility] Heart rate 92 /min 92 /min [employer] ([facility]) Diastolic blood pressure 88 mm[Hg] 88 mm[Hg] [facility] ([facility]) Systolic blood pressure 140 mm[Hg] 140 mm[Hg] N [facility] ([facility]) ID Date Data Source [id number] 06/09/2020 09:34:40 AM [facility] Name Value Range Interpretation Code Description Data Source(s) WEIGHT RECORDED 417.6 lb 417.6 lb [facility] Body height Measured 70.98 in 70.98 in [facility] ID Date Data Source [id number] 05/09/2020 02:17:[address] [facility] Name Value Range Interpretation Code Description Data Source(s) WEIGHT RECORDED 407 lb 407 lb [facility] Body height Measured 70.98 in 70.98 in [facility] ID Date Data Source [id number] 01/14/2020 09:34:45 AM EDT [facility] Name Value Range Interpretation Code Description Data Source(s) WEIGHT RECORDED 384.00 pounds 384.00 pounds [facility] Height 71 Inches 071 Inches [facility] Patient Treatment Plan of Care Planned Activity Planned Date Details Description Data Source (s) Misc. Devices (DURABLE MEDICAL EQUIPMENT SEE SIG) XX M ISC 06/28/2020 12:00:00 AM [facility] Clindamycin 0.01 MG/MG Topical Gel 06/12/2020 12:00:00 AM EST eCW1 ([facility]) Cephalexin 500 MG Oral Capsule 06/06/2020 01:30:00 PM [facility] lidocaine (XYLOCAINE) 2 % urojet 20 mL 06/06/2020 01:30:00 PM [facility] Doxycycline Monohydrate 50 MG Oral Capsule 05/15/2020 12:00:00 AM E DT eCW1 ([facility]) ciclopirox 10 MG/ML Medicated Shampoo 05/15/2020 12:00:00 AM EDT eCW1 ([facility]) alclometasone dipropionate 0.5 MG/ML Topical Cream 05/15/2020 12 :00:00 AM EDT eCW1 ([facility]) Doxycycline Monohydrate 50 MG Oral Capsule 05/15/2020 12:00:00 AM E DT eCW1 ([facility]) ciclopirox 10 MG/ML Medicated Shampoo 05/15/2020 12:00:00 AM EDT eCW1 ([facility]) alclometasone dipropionate 0.5 MG/ML Topical Cream 05/15/2020 12 :00:00 AM EDT eCW1 ([facility]) Doxycycline Monohydrate 50 MG Oral Capsule 05/15/2020 12:00:00 AM E DT eCW1 ([facility]) ciclopirox 10 MG/ML Medicated Shampoo 05/15/2020 12:00:00 AM EDT eCW1 ([facility]) alclometasone dipropionate 0.5 MG/ML Topical Cream 05/15/2020 12 :00:00 AM EDT eCW1 ([facility]) alclometasone dipropionate 0.5 MG/ML Topical Cream 05/15/2020 12 :00:00 AM EDT eCW1 ([facility]) Doxycycline Monohydrate 50 MG Oral Capsule 05/15/2020 12:00:00 AM E DT eCW1 ([facility]) ciclopirox 10 MG/ML Medicated Shampoo 05/15/2020 12:00:00 AM EDT eCW1 ([facility]) Docusate Sodium 100 MG Oral Capsule [DOK] 04/07/2020 12:00:[address] [facility] Desvenlafaxine Succinate ER 100 MG Oral Tablet Extended Release 24 Hour (PRISTIQ) 04/07/2020 12:00:00 AM EDT [facility] Nystatin 100 UNT/MG Topical Powder 03/27/2020 12:00:[address] [facility] Oxycodone Hydrochloride 5 MG Oral Tablet 02/09/2020 12:00:00 AM EDT [facility] Misc. Devices (DURABLE MEDICAL EQUIPMENT SEE SIG) [facility] 10/09/2018 12:00:00 AM [facility]spital gabapentin 100 MG Oral Capsule 03/03/2018 12:00:00 AM [facility] maalox/lidocaine/diphenhydrAMINE (RADIATION MIXTURE) 1 :1:1 oral suspension 05/29/2017 12:00:00 AM EDT [facility] Melatonin 3 MG Oral Tablet [facility] doxycycline hyclate [address] [facility] PARoxetine (PAXIL) 30 MG tablet [facility]
[2020-09-09 16:29] LABS: BASO % 0.2 % (0.0-1.0); EOS # 0.4 10^3/uL (0.0-0.5); EOS % 3.7 % (0.0-3.0); HEMATOCRIT 49.7 % (42.0-52.0); HEMOGLOBIN 16.2 g/dl (13.5-17.5); LYMPH # 1.9 10^3/uL (1.5-5.0); LYMPH % 19.4 % (24.0-44.0); MEAN CORPUSCULAR HEMOGLOBIN 29.7 pg (27.0-33.0); MEAN CORPUSCULAR HGB CONC 32.6 g/dl (32.0-36.5); MEAN CORPUSCULAR VOLUME 91.2 fl (80.0-96.0); MONO # 0.8 10^3/uL (0.0-0.8); MONO % 8.4 % (2.0-8.0); NEUTROPHILS # 6.6 10^3/uL (1.5-8.5); NEUTROPHILS % 67.8 % (36.0-66.0); PLATELET COUNT, AUTOMATED 201 10^3/uL (150-450); RED BLOOD COUNT 5.45 10^6/uL (4.30-6.10); WHITE BLOOD COUNT 9.8 10^3/uL (4.0-10.0)
--- NOTE | 2020-09-09 18:38 | REPVR ---
PROCEDURE INFORMATION: Exam: US Abdomen, Limited; Right Upper Quadrant Exam date and time: 09/09/2020 5:16 PM Age: 30 years old Clinical indication: Abdominal pain; Periumbilical; Prior surgery; Surgery date: 6+ months; Surgery type: HX of hernia repair, reccurent; Additional info: Further assess hernia; R/O incarceration TECHNIQUE: Imaging protocol: US abdomen. Real time ultrasound with image documentation. Limited exam focused on the right upper quadrant. COMPARISON: Abdomen, limited US 09/06/2020 7:18 AM FINDINGS: There are two defects seen in the anterior abdominal wall. One supraumbilical defect measures 25 mm at rest and with valsalva 28 mm. No bowel present in the defect it contains peritoneal fat and is not reducible. flow seen in the fat. The 2nd defect which is left to the umbilicus measures 13 mm at rest and 16 with valsalva containing peritoneal fat. No bowel. It is not reducible. IMPRESSION: There are two defects seen in the anterior abdominal wall. One supraumbilical defect measures 25 mm at rest and with valsalva 28 mm. No bowel present in the defect it contains peritoneal fat and is not reducible. flow seen in the fat. The 2nd defect which is left to the umbilicus measures 13 mm at rest and 16 with valsalva containing peritoneal fat. No bowel. It is not reducible. Electronically signed by: Frank Lara On 09/09/2020 18:39:00 PM
[2020-09-09 20:00] VITALS: BP 137/68
--- NOTE | 2020-09-12 07:20 | ED PDOC ---
Post-Departure Follow-Up radiology report faxed to Nicola Alvarado Sarah MD Sep 12, 2020 07:20
== END 2020-09-09 20:15 | disposition home or self-care (01) ==
LOC: M ED 15:45 → EDBD 15:45 → M ED 20:15
DX: K46.9 Unspecified abdominal hernia without obstruction or gangrene (principal); K21.9 Gastro-esophageal reflux disease without esophagitis; F33.9 Major depressive disorder, recurrent, unspecified; F41.9 Anxiety disorder, unspecified; Z88.6 Allergy status to analgesic agent; Z88.8 Allergy status to other drugs, medicaments and biological substances; Z79.899 Other long term (current) drug therapy; J30.2 Other seasonal allergic rhinitis

== ENCOUNTER 2020-09-14 15:09 | Emergency (ER) | payer OTHER ==
[~2020-09-14] VITALS: Ht 180.3 cm; Wt 187.5 kg
--- OUTSIDE RECORDS SUMMARY | 2020-09-14 15:16 | CCD | Continuity of Care Document ---
Author Author Nocturnal OximetryDavie Organization Unknown Address [address] [place] [id number] Phone Unavailable Care Team Providers Care Linux Engineer Name Role Phone Jah Lamb M.D. AUTM [phone] Nicola Alvarado D.O. AUTM [phone] Problems Active Problems Provider Date Allergic asthma [...] vela M.D. Onset: 02/06/2011 Essential hypertension Simone García M.D. Onset: Social History Type Date Description [...] 1Tab PO bid Unknown Vitamin D (Ergocalciferol) [id number] Capsules 1 tab by mouth every week [...] Code Status Date Vaccine Reaction Lot # [id number] Given 03/28/2010 TB Intradermal Test Negative per pt Vital Signs Date Vital Result Comment 08/23/2020 1:52pm BP Systolic 154 mmHg BP Diastolic 88 mmHg Height 71 inches 5'11" Weight 409.12 lb BMI (Body Mass Index) 57.1 kg/m2 [place] Body Weight 172 lb Weight 185.579 kg BSA (Body Surface Area) 2.86 m2 08/17/2020 1:00pm BP Systolic 122 mmHg BP Diastolic 80 mmHg Heart Rate 99 /min O2 % BldC Oximetry 99 % Body Temperature 96.8 F Height 69 inches 5'9" Weight 406.00 lb BMI (Body Mass Index) 59.9 kg/m2 [place] Body Weight 160 lb Neck Circumference in inches 20.5 [place] Score 6 Weight 184.162 kg BSA (Body Surface Area) 2.79 m2 Results Description No Information Available Procedures Description No Information Available Medical Devices Description No Information Available Encounters Type Date Location Provider Dx Diagnosis Office Visit 08/23/2020 2:00p [facility] Simone puckett M.D. K43.2 Incisional hernia without obstruction or gangrene G47.33 Obstructive sleep apnea (al lt) (pediatric) E66.01 Morbid (severe) obesity due to excess calories Office Visit 08/17/2020 1:15p [facility] Pulmonary/Thoracic Stephen Leon N.P. G47.33 Obstructive sleep apnea (adult) (pediatr ic) R06.00 Dyspnea, unspecified R05 Cough Assessments Date Code Description Provider 08/23/2020 K43.2 Incisional hernia without obstru ction or gangrene Simone García M.D. 08/23/2020 G47.33 Obstructive sleep apnea (adult) (pediatric) Simone García M.D. 08/23/2020 E66.01 Morbid (severe) obesity due to e xcess calories Simone García M.D. 08/17/2020 G47.33 Obstructive sleep apnea (adult) (pediatric) Esme Leon, N.P. 08/17/2020 R06.00 Dyspnea, unspecified Elizabeth Leon ea N.P. 08/17/2020 R05 Cough Esme Leon, N .P. Plan of Treatment Future Appointment(s):* 09/13/2020 1:30 pm - Simone García M.D. at [facility] * 09/14/2020 3:00 pm - Pulmonary Lab at [facility] Pulmonary/Thoracic * 09/19/2020 2:15 pm - Esme Leon N.PShay at [facility] Pulmonary/Thoracic 08/23/2020 - Simone García M.D.* K43.2 Incisional hernia without obstruction or gangrene* Comments:* Based on patient's exam and his most recent CT scan available to me he appears to have a recurrence of his hernia yet again. This would be his second recurrence. He has had this repaired twice in [place] robotically. The reports indicate that the defect was sutured twice with nonabsorbable sutures and then covered with ventral light ST mesh. It may be that the mesh is just to light weight to hold against the weight of his abdominal contents. I advised the patient that I'm not entirely certain that his hernia would be the cause for his nausea and vomiting. I have recommended that we obtain an ultrasound of the supraumbilical area. This is primarily to rule out the possibility that his hernia repair is in fact intact and that there is just some fluid or fatty tissue left within hi s hernia defect that is mimicking a true hernia. This will also give us a measurement for his fascial defect if in fact the hernia has recurred. I will see him back after the ultrasound has been obtained. * G47.33 Obstructive sleep apnea (adult) (pediatric) * E66.01 Morbid (severe) obesity due to excess calories Functional Status Description No Information Available Mental Status Description No Information Available Referrals Refer to Reason for Referral Status Appt Date Simone García M.D. HERNIA Scheduled 08/23/2020 [facility] [address] [place] [phone]
--- OUTSIDE RECORDS SUMMARY | 2020-09-14 15:16 | CCD | Continuity of Care Document ---
Author Author Davie SHEARER M.D. Organization Unknown Address [address] [place] [address], [address] [place] [address] Phone [phone] Care Team Providers Care Boom Worker Name Role Phone Jah Lamb M.D. AUTM [phone] Nicola Alvarado D.O. AUTM [phone] Problems Active Problems Provider Date Allergic asthma [...] 1Tab PO bid Unknown Vitamin D (Ergocalciferol) 44831Affb Capsules 1 tab by mouth every week [...] Code Status Date Vaccine Reaction Lot # [id number] Given 03/28/2010 TB Intradermal Test Negative per pt Vital Signs Date Vital Result Comment 09/13/2020 1:40pm BP Systolic 120 mmHg BP Diastolic 60 mmHg Height 71 inches 5'11" Weight 407.00 lb BMI (Body Mass Index) 56.8 kg/m2 [place] Body Weight 172 lb Weight 184.615 kg BSA (Body Surface Area) 2.85 m2 08/23/2020 1:52pm BP Systolic 154 mmHg BP Diastolic 88 mmHg Height 71 inches 5'11" Weight 409.12 lb BMI (Body Mass Index) 57.1 kg/m2 [place] Body Weight 172 lb Weight 185.579 kg BSA (Body Surface Area) 2.86 m2 Results Description No Information Available Procedures Description No Information Available Medical Devices Description No Information Available Encounters Type Date Location Provider Dx Diagnosis Office Visit 08/23/2020 2:00p [facility] Simone puckett M.D. K43.2 Incisional hernia without obstruction or gangrene G47.33 Obstructive sleep apnea (al lt) (pediatric) E66.01 Morbid (severe) obesity due to excess calories Office Visit 08/17/2020 1:15p [facility] Pulmonary/Thoracic Stephen Leon N.PShay G47.33 Obstructive sleep apnea (adult) (pediatr ic) R06.00 Dyspnea, unspecified R05 Cough Assessments Date Code Description Provider 08/23/2020 K43.2 Incisional hernia without obstru ction or gangrene Simone Shearer M.D. 08/23/2020 G47.33 Obstructive sleep apnea (adult) (pediatric) Simone Shearer M.D. 08/23/2020 E66.01 Morbid (severe) obesity due to e xcess calories Simone Shearer M.D. 08/17/2020 G47.33 Obstructive sleep apnea (adult) (pediatric) Esme Leon, N.P. 08/17/2020 R06.00 Dyspnea, unspecified Elizabeth Leon ea N.P. 08/17/2020 R05 Cough Esme Leon N .P. Plan of Treatment Future Appointment(s):* 09/14/2020 3:00 pm - Pulmonary Lab at [facility] Pulmonary/Thoracic * 09/19/2020 2:15 pm - Esme Leon, N.PShay at [facility] Pulmonary/Thoracic 08/23/2020 - Simone Shearer M.D.* K43.2 Incisional hernia without obstruction or gangrene* Comments:* Based on patient's exam and his most recent CT scan available to me he appears to have a recurrence of his hernia yet again. This would be his second recurrence. He has had this repaired twice in [place] robotically. The reports indicate that the defect [...] Reason for Referral Status Appt Date Simone Shearer M.D. HERNIA Scheduled 08/23/2020 [facility] [address] [place] [phone]
--- OUTSIDE RECORDS SUMMARY | 2020-09-14 15:19 | CCD ---
Author Author [facility] Organization [facility] Address Unknown Phone Unavailable Care Team Providers Care Superannuation Clerk Name Role Phone Gabriel De La Rosa [...] Lance WAGNER Unavailable Unavailable Estrella S Lance MD Unavailable Unavailable Estrella S Lance MD Unavailable Unavailable Estrella S Lance WAGNER Unavailable Unavailable EstrellaGabriel MD Unavailable Unavailable EstrellaGabriel MD Unavailable Unavailable EstrellaGabriel MD Unavailable Unavailable EstrellaGabriel MD Unavailable Unavailable EstrellaGabriel MD Unavailable Unavailable Estrella S Lance WAGNER Unavailable Unavailable EstrellaGabriel ponce MD Unavailable Unavailable [...] SOTELO CDN, RD Unavailable BRYON, MEÑO LAVERN LOCOMOTIVE MECHANIC APPRENTICE-C Unavailable Unavailable BRYON, MEÑO LAVERN LOCOMOTIVE MECHANIC APPRENTICE-C Unavailable Unavailable BRYON, MEÑO LAVERN LOCOMOTIVE MECHANIC APPRENTICE-C Unavailable Unavailable BRYON, MEÑO LAVERN LOCOMOTIVE MECHANIC APPRENTICE-C Unavailable Unavailable BRYON, MEÑO LAVERN LOCOMOTIVE MECHANIC APPRENTICE-C Unavailable Unavailable BRYON, MEÑO LAVERN LOCOMOTIVE MECHANIC APPRENTICE-C Unavailable Unavailable BRYON, MEÑO LAVERN LOCOMOTIVE MECHANIC APPRENTICE-C Unavailable Unavailable BRYON, MEÑO LAVERN LOCOMOTIVE MECHANIC APPRENTICE-C Unavailable Unavailable BRYON, MEÑO LAVERN LOCOMOTIVE MECHANIC APPRENTICE-C Unavailable Unavailable BRYON, MEÑO LAVERN LOCOMOTIVE MECHANIC APPRENTICE-C Unavailable Unavailable BRYON, MEÑO LAVERN LOCOMOTIVE MECHANIC APPRENTICE-C Unavailable Unavailable BRYON, MEÑO LAVERN LOCOMOTIVE MECHANIC APPRENTICE-C Unavailable Unavailable BRYON, MEÑO LAVERN LOCOMOTIVE MECHANIC APPRENTICE-C Unavailable Unavailable BRYON, MEÑO LAVERN LOCOMOTIVE MECHANIC APPRENTICE-C Unavailable Unavailable BRYON, MEÑO LAVERN LOCOMOTIVE MECHANIC APPRENTICE-C Unavailable Unavailable BRYON, MEÑO LAVERN LOCOMOTIVE MECHANIC APPRENTICE-C Unavailable Unavailable VANVALKENMAURI, Miroslava ESCUDERO MD Unavailable Unavailable VANVALKENBURG, Miroslava [...] Unavailable VANVALKENBURG, Miroslava ESCUDERO MD Unavailable Unavailable VANVALKENBURGMiroslava MD Unavailable Unavailable VANVALKENBURG, Miroslava ESCUDERO MD Unavailable Unavailable VANVALKENBURGMiroslava MD Unavailable Unavailable VANVALKENBURG, Miroslava ESCUDERO MD Unavailable Unavailable VANVALKENBURG, Miroslava ESCUDERO MD Unavailable Unavailable VANVALKENBURG, Miroslava ESCUDERO MD Unavailable Unavailable VANVALKENBURG, Miroslava ESCUDERO MD Unavailable Unavailable VANVALKENBURG, Miroslava ESCUDERO MD Unavailable Unavailable VANVALKENBURG, Miroslava ESCUDERO MD Unavailable Unavailable VANVALKENBURGMiroslava MD Unavailable Unavailable VANVALKENBURG, Miroslava ESCUDERO MD [...] VANVALKENBURG, Miroslava ESCUDERO MD Unavailable Unavailable VANVALKENBURG, Mirolsava ESCUDERO MD Unavailable Unavailable VANVALKENBURG, Miroslava ESCUDERO [...] Miroslava ESCUDERO MD Unavailable Unavailable VANVALKENBURG, Miroslava ESCUDREO MD Unavailable Unavailable VANVALKENBURG, Miroslava ESCUDERO MD [...] Unavailable DEMARTINI M ADITYA PA Unavailable Unavailable DEMARTINI M ADITYA PA Unavailable Unavailable DEMARTINI M ADITYA PA Unavailable Unavailable DEMARTINI M ADITYA PA Unavailable Unavailable DEMARTINI M ADITYA PA Unavailable [...] Unavailable OBLionel ZIEGLER MD Unavailable Unavailable OBTONEY, Lionel ARANDA MD Unavailable Unavailable OBTONEY, Lionel ARANDA MD Unavailable Unavailable OBTONEY, T SALVADOR WAGNER Unavailable Unavailable OBTONEY, T [...] Unavailable OBTONEY, T SALVADOR WAGNER Unavailable Unavailable OBTONEY T SALVADOR MD Unavailable Unavailable OBEN, T [...] Unavailable HITESH MELGAR MD Unavailable Unavailable HITESH EMLGAR MD Unavailable Unavailable HITESH MELGAR MD Unavailable [...] SANTOS MD Unavailable Unavailable BOONE, A SANTOS Unavailable Unavailable BOONE, A SANTOS MD Unavailable [...] SHOOK MD Unavailable Unavailable BOONE, A SANTOS WAGNER Unavailable Unavailable BOONE, Jonathon GRAHAM MD Unavailable Unavailable BOONE, A SANTOS WAGNER Unavailable Unavailable BOONE, Jonathon GRAHAM MD Unavailable Unavailable BOONE, Jonathon GRAHAM MD Unavailable Unavailable BOONE, Jonathon GRAHAM MD Unavailable Unavailable BOONE, Jonathon GRAHAM MD Unavailable Unavailable BOONE, Jonathon GRAHAM MD Unavailable Unavailable BOONE, Jonathon GRAHAM MD Unavailable Unavailable BOONE, Jonathon GRAHAM MD Unavailable Unavailable Jonathon SHOOK MD Unavailable Unavailable Kunnumpurath, F Shannan MD [...] Shannan MD Unavailable Unavailable Kunnumpurath, F Shannan WAGNER Unavailable Unavailable Kunnumpurakei, F Shannan MD Unavailable Unavailable Kunnlatanya, F Shannan MD Unavailable Unavailable Kunnumpurakei, F Shannan MD Unavailable Unavailable Kunnumpurakei, F Shannan MD Unavailable Unavailable Kunnumpurakei, F Shannan MD Unavailable Unavailable Kunnumpurakei, F Shannan MD Unavailable Unavailable Angel Arenasald Unavailable Unavailable IDA, A KELLEN DPM Unavailable [...] A KELLEN DPM Unavailable Unavailable Gabriel DAVIS [id number] Unavailable Unavailable MANFRED, [place] JONES MD Unavailable Unavailable MANFRED, O ROBERT WAGNER Unavailable Unavailable MANFRED, O ROBERT WAGNER Unavailable Unavailable MANFRED, O ROBERT WAGNER Unavailable Unavailable MANFRED, O ROBERT WAGNER Unavailable Unavailable MANFRED, O ROBERT WAGNER Unavailable Unavailable MANFRED, O ROBERT WAGNER Unavailable Unavailable MANFRED, O ROBERT WAGNER Unavailable Unavailable MANFRED, O ROBERT WAGNER Unavailable Unavailable MANFRED, O ROBERT WAGNER Unavailable Unavailable MANFRED, O ROBERT WAGNER Unavailable Unavailable MANFRED, [place] JONES MD Unavailable Unavailable MANFRED, O ROBERT WAGNER Unavailable Unavailable MANFRED, O ROBERT WAGNER Unavailable Unavailable MANFRED, O ROBERT WAGNER Unavailable Unavailable MANFRED, O ROBERT WAGNER Unavailable Unavailable MANFRED, [place] JONES MD Unavailable Unavailable MANFRED, O ROBERT WAGNER Unavailable Unavailable MANFRED, O ROBERT WAGNER Unavailable Unavailable MANFRED, O ROBERT WAGNER Unavailable Unavailable MANFRED, O ROBERT WAGNER Unavailable Unavailable MANFRED, O ROBERT WAGNER Unavailable Unavailable MANFRED, O ROBERT WAGNER Unavailable Unavailable MANFRED, O ROBERT WAGNER Unavailable Unavailable MANFRED, O ROBERT WAGNER Unavailable Unavailable MANFRED, O ROBERT WAGNER Unavailable Unavailable MANFRED, O ROBERT WAGNER Unavailable Unavailable MANFRED, O ROBERT WAGNER Unavailable Unavailable MANFRED, O ROBERT WAGNER Unavailable Unavailable MANFRED, O ROBERT WAGNER Unavailable Unavailable MANFRED, O ROBERT WAGNER Unavailable Unavailable MANFRED, O MD Unavailable Unavailable [place] SHEARER MD Unavailable Unavailable [place] SHEARER MD Unavailable Unavailable [place] SHEARER MD Unavailable Unavailable Floriad SHEARER MD Unavailable Unavailable [place] SHEARER MD Unavailable Unavailable [place] SHEARER MD Unavailable Unavailable [place] SHEARER MD Unavailable Unavailable [place] SHEARER MD Unavailable Unavailable [place] SHEARER MD Unavailable Unavailable [place] SHEARER MD Unavailable Unavailable OBLionel ZIEGLER MD Unavailable Unavailable OBLionel ZIEGLER SALVADOR MD Unavailable Unavailable OBLionel ZIEGLER SALVADOR MD Unavailable Unavailable OBTONEY T SALVADOR MD Unavailable Unavailable OBEN, T SALVADOR Unavailable Unavailable OBEN, T SALVADOR Unavailable Unavailable OBEN, T SALVADOR Unavailable Unavailable OBTONEY T SALVADOR Unavailable Unavailable OBEN T SALVADOR Unavailable Unavailable OBEN T SALVADOR Unavailable Unavailable OBEN T SALVADOR Unavailable Unavailable OBEN T SALVADOR Unavailable Unavailable OBEN, T SALVADOR Unavailable Unavailable OBTONEY, T SALVADOR Unavailable Unavailable OBLionel ZIEGLER SALVADOR Unavailable Unavailable OBLionel ZIEGLER SALVADOR Unavailable Unavailable OBLionel ZIEGLER SALVADOR Unavailable Unavailable OBEN, T SALVADOR Unavailable Unavailable OBEN, T SALVADOR Unavailable Unavailable OBEN, T SALVADOR Unavailable Unavailable OBTONEY, T SALVADOR Unavailable Unavailable OBTONEY T SALVADOR Unavailable Unavailable OBTONEY T SALVADOR Unavailable Unavailable OBTONEY T SALVADOR Unavailable Unavailable OBEN, T SALVADOR Unavailable Unavailable OBEN T SALVADOR Unavailable Unavailable OBEN, T SALVADOR Unavailable Unavailable OBTONEY T SALVADOR Unavailable Unavailable OBLionel ZIEGLER SALVADOR Unavailable Unavailable OBTONEY T SALVADOR Unavailable Unavailable OBTONEY T SALVADOR Unavailable Unavailable OBEN, T SALVADOR Unavailable Unavailable OBEN, T SALVADOR Unavailable Unavailable OBEN, T SALVADOR Unavailable Unavailable OBEN, T SALVADOR Unavailable Unavailable OBTONEY, T SALVADOR Unavailable Unavailable OBEN, T SALVADOR Unavailable Unavailable OBEN, T SALVADOR Unavailable Unavailable OBEN, T SALVADOR Unavailable Unavailable OBEN, T SALVADOR Unavailable Unavailable OBEN, T SALVADOR Unavailable Unavailable OBEN, T SALVADOR Unavailable Unavailable OBEN, T SALVADOR Unavailable Unavailable OBEN, T SALVADOR Unavailable Unavailable OBEN, T SALVADOR Unavailable Unavailable OBEN, T SALVADOR MD Unavailable [...] CLEO Unavailable Unavailable HESTERLETITIA MD Unavailable Unavailable HESTER LETITIA MD Unavailable Unavailable HESTER LETITIA MD Unavailable Unavailable HESTER LETITIA MD Unavailable Unavailable HESTER LETITIA MD Unavailable Unavailable HESTER LETITIA MD Unavailable Unavailable HESTER LETITIA MD Unavailable Unavailable HESTERLETITIA MD Unavailable Unavailable [...] Unavailable Unavailable HESTERLETITIA COPELAND MD Unavailable Unavailable HETSERLETITIA MD Unavailable Unavailable HESTERLETITIA MD Unavailable Unavailable HESTERLETITIA MD Unavailable Unavailable HESTERLETITIA MD Unavailable Unavailable HESTERLETITIA MD Unavailable Unavailable HESTERLETITIA MD Unavailable Unavailable HESTERLETITIA MD Unavailable Unavailable HESTERLETITIA MD Unavailable Unavailable HESTERLETITIA MD Unavailable Unavailable HESTERLETITIA MD Unavailable Unavailable HESTERLETITIA MD Unavailable Unavailable HESTER LETITIA MD Unavailable Unavailable HESTERLETITIA MD Unavailable Unavailable HESTER LETITIA MD Unavailable Unavailable HESTER LETITIA MD Unavailable Unavailable HESTERLETITIA MD Unavailable Unavailable HESTERLETITIA MD Unavailable Unavailable HESTERLETITIA MD Unavailable Unavailable HESTERLETITIA MD Unavailable Unavailable HESTERLETITIA MD Unavailable Unavailable HESTER LETITIA MD Unavailable Unavailable HESTER LETITIA MD Unavailable Unavailable HESTER LETITIA MD Unavailable Unavailable HESTER LETITIA MD Unavailable Unavailable HESTERLETITIA MD Unavailable Unavailable HESTER LETITIA MD Unavailable Unavailable HESTER LETITIA MD Unavailable Unavailable HESTER LETITIA MD Unavailable Unavailable LETITIA HESTER MD [...] Unavailable Nieves TAMAYO MD Unavailable Unavailable Nieves TAMYAO MD Unavailable Unavailable Nieves TAMAYO MD Unavailable [...] Unavailable Unavailable Nieves TAMAYO MD Unavailable Unavailable Nivees TAMAYO MD Unavailable Unavailable Nieves TAMAYO MD Unavailable Unavailable MINILos MAYES MD Unavailable Unavailable MINILos MAYES MD Unavailable Unavailable MINILos MAYES MD Unavailable Unavailable MINILos MAYES MD Unavailable Unavailable MINILos MAYES MD Unavailable Unavailable MINILos MAYES MD Unavailable Unavailable MINILos MAYES MD Unavailable Unavailable MINILos MAYES MD Unavailable Unavailable MINILos MAYES MD Unavailable Unavailable MINI, Los ARREAGA MD Unavailable Unavailable MINI, Los ARREAGA MD Unavailable Unavailable MINI, Los ARREAGA MD Unavailable Unavailable MINILos MAYES MD Unavailable Unavailable MINILos MAYES MD Unavailable Unavailable MINILos MAYES MD Unavailable Unavailable MINILos MAYES MD Unavailable Unavailable MINILos MAYES MD Unavailable Unavailable MINILos MAYES MD Unavailable Unavailable MINILos MAYES MD Unavailable Unavailable MINILos MAYES MD Unavailable Unavailable MINILos MAYES MD Unavailable Unavailable MINILos MAYES MD Unavailable Unavailable MINILos MAYES MD Unavailable Unavailable Nieves CASSIDY MD Unavailable [...] Carmen MS, RPA-C Unavailable Unav ailable Bartoszewski, Threese Carmen MS, RPA-C Unavailable Unav ailable Bartoszewski, [...] is protected by Article 27-F of the [employer] [facility] [employer] Public Health law. If you continue you may have access to information: Regarding HIV / AIDS; Provided by facilities licensed or operated by the [facility] Office of Mental Health; or Provided by the [facility] Office for People With Developmental Disabilities. If such information is present, then the following [employer] [facility] mandated warning applies: This information has been [...] law may result in a fine or detention sentence or both. A general authorization for the release of medical or other information is NOT sufficient authorization for further disc losure. Allergies and Adverse Reactions Type Description Substance Reaction Status Data Source(s ) No Known Food Allergies No Known Food Allergies [facility] BRANDNAME DILANTIN DILANTIN [facility] Drug allergy CODEINE CODEINE [facility] Drug allergy NAPROXEN NAPROXEN [facility] Family History Family Member Name Family Member Gender Family Member Status Date o f Status Description Data Source(s) Unknown Condition [facility] Unknown Condition [facility] Unknown Condition [facility] Unknown Condition [facility] Unknown Condition [facility] Unknown Condition [facility] Unknown Condition [facility] Unknown Condition [facility] Unknown Condition [facility] Encounters Encounter Providers Location Date Indications Data Source(s ) Outpatient Attender: SANTOS SHOOK MD 11/28/2020 12:00:0 0 AM [facility] [place] [address] [address] 09/07/2020 12:00:00 AM EST eC ([facility]) [place] [address] [address] 09/01/2020 12:00:00 AM EST eCW1 ([facility]) [place] [address] [address] 08/28/2020 12:00:00 AM EST eCW1 ([facility]) [place] [address] [address] 08/25/2020 12:00:00 AM EST eCW1 ([facility]) Outpatient Attender: ROBERT Lu/Yonathan/Chucho/Re indl 08/23/2020 01:00:00 PM EST [facility] ([facility] Outpatient Attender: LAVERN Lu/Yonathan/Chucho/R eindl 08/17/2020 12:15:00 PM EST [facility] ([facility]) [place] [address] [address] 08/15/2020 12:00:00 AM EST eCW1 ([facility]) [place] [address] [address] 08/11/2020 12:00:00 AM EST eCW1 ([facility]) [place] [address] [address] 08/10/2020 12:00:00 AM EST eCW1 ([facility]) Outpatient Attender: MADISON PEPE 07/17/2020 12:00:00 A M [facility] Outpatient Attender: KOTA SIERRA MD [id number] 06/28/2020 12:00:00 AM EST Primary osteoarthritis, right ankle and foot [facility] Primary osteoarthritis, right ankle and foot Outpatient Attender: MADISON PEPE 06/26/2020 12:00:00 A M [facility] [place] [address] [address] 06/12/2020 12:00:00 AM EST eCW1 ([facility]) Outpatient Attender: SANTOS SHOOK MD [id number] 04/2020 12:00:00 AM EST - 06/06/2020 02:43:30 PM EST Post-traumatic bulbous urethral stricture [facility] Post-traumatic bulbous urethral strictur e Outpatient Attender: MADISON PEPE 06/05/2020 12:00:00 A M [facility] Outpatient Attender: Shannan Negrete MDConsultant: LETITIA HESTER MD 06/01/2020 01:00:00 PM EST - 06/01/2020 01:00:00 PM [facility] Outpatient Attender: MADISON PEPE [facility]/24[facility]2020 [facility] [address] [address] 05/22/2020 12:00:00 AM EDT eCW1 ([facility]) [place] [address] [address] 05/22/2020 12:00:00 AM EDT eCW1 ([facility]) [place] [address] [address] 05/18/2020 12:00:00 AM EDT eCW1 ([facility]) [place] [address] [address] 05/15/2020 12:00:00 AM EDT eCW1 ([facility]) Outpatient Attender: SANTOS SHOOK MD [id number] 12:00:00 AM EDT - 05/09/2020 02:16:06 PM EDT [facility] Outpatient Referrer: ADITYA TANG 04/26/2020 12:00:00 AM EDT Primary osteoarthritis, right ankle and foot [facility] Primary osteoarthritis, right ankle and foot Outpatient Referrer: ADITYA TANG 04/26/2020 12:00:00 AM EDT Primary osteoarthritis, right ankle and foot [facility] Primary osteoarthritis, right ankle and foot Outpatient Attender: ADITYA TANG [id number] 04/26/2020 12:00:00 AM EDT Primary osteoarthritis, right ankle and foot [facility] Primary osteoarthritis, right ankle and foot Outpatient Attender: Shannan Negrete MDConsultant: LETITIA HESTER MD 04/20/2020 02:36:00 PM EDT - 04/20/2020 02:36:00 PM EDT [facility] Outpatient Attender: LETITIA HESTER MDConsultant: LETITIA Madison MD 04/05/2020 10:11:00 AM EDT - 04/05/2020 10:11:00 AM EDT [facility] Outpatient Attender: SERAFIN GEORGES MDConsultant: LETITIA Madison MD 03/29/2020 01:51:00 PM EDT - 03/29/2020 01:51:00 PM EDT [facility] Outpatient Attender: LETITIA HESTER MDConsultant: LETITIA Madison MD 03/27/2020 12:49:00 PM EDT - 03/27/2020 12:49:00 PM EDT [facility] Outpatient Attender: KOTA SIERRA MD 03/24/2020 12: 00:00 AM [facility] Emergency Attender: CLEO GRUBERConsultant: LETITIA Madison MD 03/22/2020 03:26:00 PM EDT - 03/22/2020 05:25:00 PM EDT [facility] Patient discharged. Outpatient Attender: ALTAGRACIA DAVIS [id number]: LETITIA HANSEN MD 03/20/2020 12:00:00 AM [facility] Outpatient Attender: KOTA SIERRA MD 03/15/2020 12: 00:00 AM [facility] Emergency Attender: HITESH MELGAR MDConsultant: LETITIA HESTER MD 03/09/2020 05:46:00 PM EDT - 03/10/2020 12:45:00 AM EDT [facility] Patient discharged. Outpatient Attender: LETITIA HESTER MD Family Practice 02/23/2020 1 1:00:00 AM EDT [facility] ([facility]) Outpatient Attender: LETITIA HESTER MDConsultant: LETITIA Madison MD 02/23/2020 10:36:00 AM EDT - 02/23/2020 10:36:00 AM EDT [facility] Outpatient Attender: ROBERT TAMAYO MDReferrer: ROBERT TAMAYO MD MOB-MOB.PAT 02/04/2020 10:47:57 AM EDT - 02/04/2020 11:35:59 AM EDT [facility] Outpatient Attender: ROBERT TAMAYO MDReferrer: ROBERT TAMAYO MD MOB-MOB.PAT 02/04/2020 10:12:45 AM EDT - 02/04/2020 10:12:49 AM EDT [facility] SDC Attender: ROBERT TAMAYO MDAdmitter: ROBERT TAMAYO MD ES1-OR 02/02/2020 10:39:51 AM EDT - 02/09/2020 05:00:00 PM EDT [facility] Patient discharged. Outpatient Referrer: ROBERT TAMAYO MD 01/31/2020 01:06:48 P M EDT [facility] Emergency Attender: MILAGROS MORSE MDConsultant: LETITIA Madison MD 01/27/2020 11:08:00 AM EDT - 01/27/2020 01:46:00 PM EDT [facility] Patient discharged. Outpatient Attender: Lance De La Rosa MD Main Office 01/18/2020 02:15:00 [facility] Outpatient Attender: LETITIA HESTER MDConsultant: LETITIA Madison MD 01/17/2020 09:33:00 AM EDT - 01/17/2020 10:33:00 AM EDT [facility] Emergency Attender: MILAGROS MORSE MDConsultant: LETITIA Madison MD 01/13/2020 01:42:00 PM EDT - 01/13/2020 05:54:00 PM EDT [facility] Patient discharged. Outpatient Attender: LETITIA HESTER MD Family Practice 01/12/2020 0 1:20:00 PM EDT [facility] ([facility]) Outpatient Attender: LETITIA HESTER MDConsultant: LETITIA Madison MD 01/12/2020 12:32:00 PM EDT - 01/12/2020 12:32:00 PM EDT [facility] Outpatient Attender: SALVADOR KAMARA MDConsultant: LETITIA HESTER MD 12/31/2019 08:45:00 AM EDT - 12/31/2019 11:35:00 AM EDT [facility] Patient discharged. Outpatient Attender: Carmen Biswas MS, RPA-CConsultan t: LETITIA HESTER MD 12/28/2019 09:05:00 AM EDT - 12/28/2019 09:15:00 AM EDT [facility] Patient discharged. Outpatient Attender: SALVADOR KAMARA MDConsultant: LETITIA HESTER MD 12/15/2019 11:32:18 AM EDT [facility] Outpatient Attender: ALESSIO SOTELO CDN, RDConsultant: LETITIA HESTER MD 12/14/2019 12:59:00 PM EDT - 12/14/2019 12:59:00 PM EDT [facility] Outpatient Attender: SALVADOR KAMARA MDConsultant: LETITIA HESTER MD 12/13/2019 02:57:37 PM EDT - 12/14/2019 12:20:00 PM EDT [facility] Patient discharged. Outpatient Attender: LETITIA HESTER MDConsultant: LETITIA Madison MD 11/29/2019 10:16:00 AM EDT - 12/16/2019 08:54:00 AM EDT [facility] Patient discharged. Outpatient Attender: LETITIA HESTER MDConsultant: LETITIA Madison MD 11/25/2019 12:56:00 PM EDT - 11/25/2019 12:56:00 PM EDT [facility] Outpatient Attender: SALVADOR KAMARA MDConsultant: LETITIA HESTER MD 11/23/2019 11:13:00 AM EDT - 11/23/2019 11:13:00 AM EDT [facility] Outpatient Attender: SALVADOR KAMARA MD Family Practice 11/23/2019 08:15:0 0 AM EDT [facility] ([facility]) Outpatient Attender: LETITIA HESTER MDConsultant: LETITIA Madison MD 11/19/2019 10:35:00 AM EDT - 11/19/2019 11:36:00 AM EDT [facility] Outpatient Attender: LETITIA HESTER MD Family Practice 11/18/2019 0 3:00:00 PM EDT [facility] ([facility]) Outpatient Attender: LETITIA HESTER MDConsultant: PCP NO 11/18/2019 02:08:00 PM EDT - 11/18/2019 02:08:[address] [facility]: YI CASSIDY MDConsultant: PCP NO 10/21/2019 03:31:00 PM EDT - 10/21/2019 05:41:[address] [facility] Patient discharged. Outpatient Attender: KOTA SIERRA MD 10/15/2019 12: 00:00 AM EDT [facility] OutpatientEST-LEVEL 4 Attender: KELLEN PRIETO DPM [facility] 10/06/2019 02:30:00 PM EDT - 10/06/2019 02:30:00 PM EDT Nail dystrophyUnspecified osteoarthritis, unspecified site [facility] ([facility]) Nail dystrophy Unspecified osteoarthritis, unspecified site Outpatient Attender: Kota QUINTEROeferrer: Kota Anderson MD 09/14/2019 03:48:00 PM EST - 09/14/2019 04:28:00 PM EST [facility] Outpatient Attender: Lance Bryanterrlilia: Kota collins MD 08/12/2019 01:49:00 PM EST [facility] Immunizations Vaccine Date Status Description Data Source(s) This CVX code allows reporting of a vacc ination when formulation is unknown (for example, when recording a Influenza vaccination when noted on a vaccination card) 07/19/2019 12:00:00 AM EST completed influenza, injectable , [facility] This CVX code allows reporting of a vacc ination when formulation is unknown (for example, when recording a Influenza vaccination when noted on a vaccination card) 07/19/2019 12:00:00 AM EST completed influenza, injectable , [facility] Medications Medication Brand Name Start Date Product Form Dose Route Admi nistrative Instructions Pharmacy Instructions Status Indications Reaction Description Data Source(s) [facility] Devices (DURABLE MEDICAL EQUIPMENT SEE SIG) XX [facility] 97 [id number] 06/28/2020 12:00:00 AM EST active Use as directed. Roll A Bout Knee Scooter Dx: [facility] Clindamycin 0.01 MG/MG Topical Gel Clindamycin Phospha te 1 % Clindamycin Phosphate 1 % 06/12/2020 12:00:00 AM EST 1.0 {application} active Clindamycin Phosphate 1 % eCW1 ([facility]) lidocaine (XYLOCAINE) 2 % urojet 20 mL [address]-1 0 01:30:00 PM EST 20 mL Urethral completed 20 mL, Urethr al, Once, 06/06/20 at 1330, For 1 dose [facility] Medication administered onsite Cephalexin 500 MG Oral Capsule cephALEXin (KEFLEX) cap gt 500 mg cephALEXin (KEFLEX) capsule 500 mg 06/06/2020 01:30:00 PM EST 500 mg Oral completed 500 mg, Oral, Once, Fri06/06/20 at 1330 , For 1 dose [facility] Medication administered onsite alclometasone dipropionate 0.5 MG/ML Top ical Cream Alclometasone Dipropionate 0.05 % Alclometasone Dipropionate 0.05 % 05/15/2020 12:00:00 AM EDT 1.0 {application} active Alclometasone Dipr opionate 0.05 % eCW1 ([facility]) ciclopirox 10 MG/ML Medicated Shampoo Ciclopirox 1 % Ciclopi oneil 1 % 05/15/2020 12:00:00 AM EDT 1.0 {application} active Ciclopirox 1 % eCW1 ([facility]) ciclopirox 10 MG/ML Medicated Shampoo Ciclopirox 1 % Ciclopi oneil 1 % 05/15/2020 12:00:00 AM EDT 1.0 {application} active Ciclopirox 1 % eCW1 ([facility]) Doxycycline Monohydrate 50 MG Oral Capsule Doxycycline Monoh ydrate 50 MG 05/15/2020 12:00:00 AM EDT 1.0 {capsule} active Doxycycline Monohydrate 50 MG eCW1 ([facility]) alclometasone dipropionate 0.5 MG/ML Top ical Cream Alclometasone Dipropionate 0.05 % Alclometasone Dipropionate 0.05 % 05/15/2020 12:00:00 AM EDT 1.0 {application} active Alclometasone Dipr opionate 0.05 % eCW1 ([facility]) Doxycycline Monohydrate 50 MG Oral Capsule Doxycycline Monoh ydrate 50 MG 05/15/2020 12:00:00 AM EDT 1.0 {capsule} active Doxycycline Monohydrate 50 MG eCW1 ([facility]) alclometasone dipropionate 0.5 MG/ML Top ical Cream Alclometasone Dipropionate 0.05 % Alclometasone Dipropionate 0.05 % 05/15/2020 12:00:00 AM EDT 1.0 {application} active Alclometasone Dipr opionate 0.05 % eCW1 ([facility]) ciclopirox 10 MG/ML Medicated Shampoo Ciclopirox 1 % Ciclopi oneil 1 % 05/15/2020 12:00:00 AM EDT 1.0 {application} active Ciclopirox 1 % eCW1 ([facility]) alclometasone dipropionate 0.5 MG/ML Top ical Cream Alclometasone Dipropionate 0.05 % Alclometasone Dipropionate 0.05 % 05/15/2020 12:00:00 AM EDT 1.0 {application} active Alclometasone Dipr opionate 0.05 % eCW1 ([facility]) ciclopirox 10 MG/ML Medicated Shampoo Ciclopirox 1 % Ciclopi oneil 1 % 05/15/2020 12:00:00 AM EDT 1.0 {application} active Ciclopirox 1 % eCW1 ([facility]) Doxycycline Monohydrate 50 MG Oral Capsule Doxycycline Monoh ydrate 50 MG 05/15/2020 12:00:00 AM EDT 1.0 {capsule} active Doxycycline Monohydrate 50 MG eCW1 ([facility]) Doxycycline Monohydrate 50 MG Oral Capsule Doxycycline Monoh ydrate 50 MG 05/15/2020 12:00:00 AM EDT 1.0 {capsule} active Doxycycline Monohydrate 50 MG eCW1 ([facility]) Docusate Sodium 100 MG Oral Capsule [DOK] DOK 100 MG O ral Capsule DOK 100 MG Oral Capsule 04/07/2020 12:00:00 AM EDT 100 mg Oral activ e Take 100 mg by mouth daily [facility] Desvenlafaxine Succinate ER 100 MG Oral Tablet Extended Release 24 Hour (PRISTIQ) 3101-8315-24 04/07/2020 12:00:00 AM EDT Oral active Take by mouth daily [facility] Nystatin 100 UNT/MG Topical Powder Nysta tin [id number] UNIT/GM External Powder (MYCOSTATIN) Nystatin [id number] UNIT/GM External Powder (MYCOSTATIN) 0 03/27/2020 12:00:00 AM EDT active APPLY TO AFFECTED AREA S TWO TIMES A DAY ABDOMINAL FOLDS [facility] heparin (porcine) injection 5,000 Units [id number] 02/09/20 05:00:00 PM EDT 5000 U Subcutaneous active 5,000 Units , Subcutaneous, Every 8 hours (scheduled), First dose on Fri02/09/20 at 1700, Post-op
If platelet count is less than 100,000 or hematocrit is less than 25, or if there is a 5 point decrea se in hematocrit, do not give the dose and call physician/designee.
[facility] Medication administered onsite dextrose 5 % and sodium chloride 0.9 % infusion 6288-9884-81 02/09/2020 05:00:00 PM EDT Intravenous active at 1 00 mL/hr, Intravenous, Continuous, Starting Fri02/09/20 at 1700, Post-op
Hep lock with good PO
[facility] Medication administered onsite Oxycodone Hydrochloride 5 MG Oral Tablet oxyCODONE (ROXICODONE) immediate release tablet 5 mg oxyCODONE (ROXICODONE) immediate release tablet 5 mg 02/09/2020 04:27:42 PM EDT 5 mg Oral active 5 mg, Oral, Every 4 hours PRN, moderate pain (4-6), Starting Fri02/09/20 at 1627, For 7 days, Post-op [facility] Medication administered onsite ondansetron (ZOFRAN) injection 4 mg [id number] 02/09/2020 04:27:4 2 PM EDT 4 mg Intravenous active 4 mg, In travenous, Every 6 hours PRN, nausea, vomiting, Starting Fri02/09/20 at 1627, Post-op [facility] Medication administered onsite Magnesium Chloride 0.66850 MEQ/ML / Pota ssium Chloride 0.0497 MEQ/ML / Sodium Acetate 0.0163 MEQ/ML / Sodium Chloride 0.0899 MEQ/ML / Sodium gluconate 5.02 MG/ML Injectable Solution [Normosol-R] electrolyte-R (NORMOSOL-R/PLASMALYTE-R) solution electrolyte-R (NORMOSOL-R/PLASMALYTE-R) solution 02/08 04:00:00 PM EDT Intravenous active at 1 00 mL/hr, Intravenous, Continuous, Starting Fri02/09/20 at 1600, PACU & Post-op [facility] Medication administered onsite normal saline flush 0.9 % injection 3 mL [id number] 02/09/2020 04:00:00 PM EDT 3 mL Intravenous active 3 mL , Intravenous, Every 8 hours (scheduled), First dose on Fri02/09/20 at 1600, PACU (only)
flush per protocol, D/C Main IV fluid if appropriate
[facility] Medication administered onsite 10 ML Atropine [...] or 0.04 mg/kg. Max of 6 doses
[facility] Medication administered onsite fentaNYL Citrate (PF) (SUBLIMAZE) injection 25 mcg [id number] 02/09/2020 02:45:03 PM EDT 25 ug Intravenous completed 25 mcg, Intravenous, Every 5 min PRN, moderate pain (4-6), Starting Fri02/09/20 at 1445, For 4 doses, PACU (only) [facility] Medication administered onsite normal saline flush 0.9 % injection 3 mL [id number] 02/09/2020 02:00:00 PM EDT 3 mL Intravenous active 3 mL , Intravenous, Every 8 hours (scheduled), First dose on Fri02/09/20 at 1400, Pre-op
Rapid push positive pressure flushing shall be performed with a 10 cc normal saline syringe to check the PATENCY of a PIV site prior to any infusion therapy initiation unless resistance is met.
[facility] Medication administered onsite Oxycodone Hydrochloride 5 MG Oral Tablet oxyCODONE (ROXICODONE) 5 MG immediate release tablet oxyCODONE (ROXICODONE) 5 MG immediate release tablet 0 02/09/2020 12:00:00 AM EDT 5 mg Oral active Take 1 tablet (5 mg total) by mouth every 6 (six) hours as needed for pain Max Daily Amount: 20 mg [facility] Levetiracetam 500 MG Oral Tablet [Keppra] Keppra 01/20/2020 12:00 :00 AM EDT ORAL active [facility] ([facility]) montelukast 10 MG Oral Tablet Montelukast Sodium 11/22/2019 12:00:00 AM EDT ORAL active [facility] ([facility]) Docusate Sodium 100 MG Oral Capsule [Colace] Colace 12:00:00 AM EDT ORAL active [facility] ( [facility]) 750 mg 09/14/2019 12:00:00 AM [...] 08/30/2019 09:14:43 AM EST 15 MG active [facility] Methocarbamol 750 MG Oral Tablet Methocarbamol 08/30/2019 09:12:29 AM EST 750 MG active [facility] 750 mg 08/30/2019 12:00:00 AM EST [...] 09:11:55 AM EST 50 MG active [facility] cetirizine hydrochloride 10 MG Oral Capsule Cetirizine Cetir izine 08/19/2019 09:11:50 AM EST 10 MG active [facility] 10 mg 08/19/2019 12:00:00 AM EST tablet [...] WEAR SUN PROTECTION DURING TREATMENT SOLD: 08/18/2019 [facility] topiramate 200 MG Oral Tablet TOPIRAMATE 08/01/2019 12:00:00 AM EST ta blet 60 TAKE ONE TABLET BY MOUTH TWICE A DAY TAKE ONE TABLET BY MOUTH TWICE A DAY SOLD: 2019 [facility] topiramate 200 MG Oral Tablet TOPIRAMATE 08/01/2019 12:00:00 AM EST ta blet 60 TAKE ONE TABLET BY MOUTH TWICE A DAY TAKE ONE TABLET BY MOUTH TWICE A DAY SOLD: 08/01/2019 [facility] topiramate 200 MG Oral Tablet Topiramate Topiramate 020 02:39:04 PM EST 200 MG active Serafin [facility] 750 mg 07/18/2019 12:00:00 AM [...] 07/13/2019 03:23:25 PM EST 750 MG completed [facility] 100 mg 06/04/2019 12:00:00 AM EST tablet extended release 24 hr 30 TAKE ONE TABLET BY MOUTH EVERY DAY TAKE ONE TABLET BY MOUTH EVERY DAY SOLD: 08/01/2019 [facility] 100 mg 06/04/2019 12:00:00 AM EST tablet extended release 24 hr 30 TAKE ONE TABLET BY MOUTH EVERY DAY TAKE ONE TABLET BY MOUTH EVERY DAY SOLD: 09/01/2019 [facility] 100 mg 06/04/2019 12:00:00 AM EST capsule 90 TAKE ONE CAPSULE BY MOUTH AT BEDTIME TAKE ONE CAPSULE BY MOUTH AT BEDTIME SOLD: 2019 [facility] Mirtazapine 15 MG Oral Tablet Mirtazapine 06/01/2019 02:30:05 PM EST 15 MG completed [facility] 15 mg 06/01/2019 12:00:00 AM EST tablet 30 TAKE ONE TABLET BY MOUTH EVERY DAY TAKE ONE TABLET BY MOUTH EVERY DAY SOLD: 07/26/2019 [facility] Methylprednisolone Methylprednisolone 05/31/2019 06:14:06 PM EST 0 completed [facility] cetirizine hydrochloride 10 MG Oral Capsule Cetirizine Cetir izine 05/17/2019 09:13:30 AM EDT 10 MG [facility] Doxycycline Monohydrate 50 MG Oral Capsule Doxycycline Monoh ydrate 05/17/2019 09:13:09 AM EDT 50 MG [facility] 600 mg 05/17/2019 12:00:00 AM EDT tablet 90 TAKE ONE TABLET BY MOUTH THREE TIMES A DAY TAKE ONE TABLET BY MOUTH THREE TIMES A DAY SOLD: 07/18/2019 [facility] 600 mg 05/17/2019 12:00:00 AM EDT tablet 90 TAKE ONE TABLET BY MOUTH THREE TIMES A DAY TAKE ONE TABLET BY MOUTH THREE TIMES A DAY SOLD: 08/15/2019 [facility] 600 mg 05/17/2019 12:00:00 AM EDT [...] EDED FOR ALLERGY SYMPTOMS SOLD: 07/18/2019 [facility] 50 mg 05/17/2019 12:00:00 AM [...] MOUTH EVERY 24 HO URS SOLD: 09/01/2019 [facility] topiramate 200 MG Oral Tablet Topiramate Topiramate 019 12:59:00 PM EDT 200 MG completed [facility]. Devices (DURABLE MEDICAL EQUIPMENT SEE SIG) [facility] [id number] 10/09/2018 12:00:00 AM EDT aborted Use as directed. Rolling walker with seat Dx: Right ankle arthritis [facility] gabapentin 100 MG Oral Capsule gabapentin (NEURONTIN) 100 MG capsule gabapentin (NEURONTIN) 100 MG capsule 03/03/2018 12:00:00 AM EDT 100 mg Oral aborted Take [address] [facility] maalox/lidocaine/diphenhydrAMINE (RADIATION MIXTURE) 1:1:1 o ral suspension 05/29/2017 12:00:00 AM EDT 10 mL Swish & Spit aborted Swish and spit 10 mLs every 2 (two) hours as needed (For Mouth Pain)Pharmacy compound: Maalox, lidocaine viscous 2 %, Benadryl 12.5 mg/5 mL [facility] PARoxetine (PAXIL) 30 MG tablet [id number] 30 mg Oral aborted Take 30 mg by mouth every morning [facility] Melatonin 3 MG Oral Tablet melatonin 3 MG tablet melatonin 3 MG table t 5 mg Oral aborted Take 5 mg by m outh nightly Indications: Pt takes two tabs nightly [facility] doxycycline hyclate 50 MG Oral Capsule doxycycline ( BRAMYCIN) 50 MG capsule doxycycline (VIBRAMYCIN) 50 MG capsule 100 mg Oral aborted Take 100 mg by mouth every morning [facility] Insurance Providers Payer name Policy type / Coverage type Policy ID Covered green party ID Covered green party's relationship to de la rosa Policy [place] Plan Information [facility] COMMUNITY PLAN [facility] [id number] SP [id number] [facility] COMMUN[facility] [id number] SP [id number] [facility] P [id number] S [id number] [facility] COMMUNITY PLAN [facility] [id number] SP [id number] [facility] I [id number] Self [id number] [facility] COMMUNTY PLAN [id number] 18 [id number] [facility] COMMUNITY PLAN XIX [id number] 18 [id number] UNHC COMMUNITY PLAN MCDO [id number] SP [id number] [facility] MEDICAID [id number] [facility] MEDICAID [id number] Sepideh [id number] INSURANCE COVID-19 COVID Sepideh C OVID INSURANCE COVID-19 [id number] BLUE CROSS BLUE SHIELD-O/P [id number] UNHC COMMUNITY PLAN XIX -RECURRING [id number] 18 [id number] [facility] Community Plan [id number] 99 [id number] STPP Wrap [id number] [employer] Other 0 Self 0 [employer] Other 0 Self 0 [employer] Other 0 Self 0 C MEDICAID PI PI MEDICAID [id number] Sepideh [id number] [employer] Other 0 Self 0 [employer] Other 0 Self 0 [employer] Other 0 Self 0 [place] Medig[place] [id number] Self [id number] Hmo Blue Option/Medicaid Health Maintenance Organization (HMO) [id number] Self [id number] [facility] Health Maintenance Organization (HMO) [id number] Self [id number] [place] Medig[place] [id number] Self [id number] Hmo Blue Option/Medicaid Health Maintenance Organization (HMO) [id number] Self [id number] Medicaid Medicaid [id number] Self [id number] [facility]-Community Plan Commercial [id number] [place] [id number] [place] [id number] Family Dependent [id number] [facility] Community Plan Commercial [id number] Self [id number] [employer] Other 0 Self 0 UNHC COMMUNITY PLAN MCDO [id number] SP [id number] [place] Medigap [place] [id number] Self [id number] Hmo Blue Option/Medicaid Health Maintenance Organization (HMO) [id number] Self [id number] [facility] Health Maintenance Organization (HMO) [id number] Self [id number] Community Plan - [facility] Commercial [id number] Self [id number] Community Plan - [facility] Commercial [id number] Self [id number] [employer] Other 0 Self 0 Medicaid [id number] Community Plan - [facility] Commercial [id number] Self [id number] [facility] [id number] 99 [id number] Community Plan - [facility] Commercial Self [facility]/MCR Medigap Part B Self [place] Medigap Part B Self Hmo Blue Option/Medicaid Health Maintenance Organization (HMO) Self [facility] [id number] UHC PLUS PAUL COMMUNITY PLAN [id number] SELF [id number] [employer] PAUL [id number] SELF [id number] [facility] [id number] Patient [id number] [facility] [id number] Patient [id number] SELF PAY UNAVAILABLE SELF UNAVAILA BLE Medicaid Medicaid Self [facility]-Community Plan Commercial Self MEDICAID M [id number] Self [id number] [facility]) P [id number] S [id number] [facility]) P [id number] S [id number] [facility] MEDICAID 7 [id number] 1 [id number] SELFPAY 5 UNAVAILABLE 1 UNAVAILA BLE MEDICAID 3 [id number] BLUE CHOICE OPTIONS 7 [id number] MEDICAID W [id number] S [id number] BLUE CHOICE OPTION O [id number] S [id number] BLUE [place]OSS [place] PLAN [id number] SP [id number] BLUE CROSS [place] PLAN [id number] SP [id number] MEDICAID [id number] SP [id number] HMO BLUE [id number] [id number] UNAVAILABLE UNAVAILA BLE Problems, Conditions, and Diagnoses Code Display Name Description Problem Type Effective Dates Data Source(s) 21624752 Essential hypertension Essential hypertension Problem 08/23/2020 12:00:00 AM EST MEDENT ([facility] ) J45.20 [id number] Mild intermittent asthma without complica tion Problem 08/03/2020 12:00:00 AM EST eCW1 ([facility]) Z68.43 [id number] BMI 50.0-59.9, adult Problem 08/03/2020 12:0 0:00 AM EST eCW1 ([facility]) G47.33 [id number] Obstructive sleep apnea Problem 08/03/2020 1 2:00:00 AM EST eCW1 ([facility]) G40.909 [id number] Seizure disorder Problem 08/03/2020 12:00:00 AM EST [facility] ([facility]) [id number] Abdominal pain Abdominal pain Problem 01/18/2020 12:00: 00 AM EDT [facility] ([facility]) 10387954 Essential hypertension Essential hypertension Problem 11/18/2019 12:00:00 AM EDT MED[facility] ([facility]) S92.101S Unspecified fracture of right talus, seq uela Unspecified fracture of right talus, sequela Diagnosis 06/28/2020 07:03:06 AM [facility] M19.071 Primary osteoarthritis, right ankle and foot Primary osteoarthritis, right ankle and foot Diagnosis 06/28/2020 07:03:06 AM [facility] [id number] Encounter for other preprocedural examin ation Encounter for other preprocedural examination Diagnosis 04/20/2020 02:36:00 PM EDT [facility] H6123 Impacted cerumen, bilateral Impacted cerumen, bilatera l Diagnosis 04/05/2020 10:11:00 AM EDT [facility] R1033 Periumbilical pain Periumbilical pain Diagnosis 08/2019 01:51:00 PM EDT [facility] H6122 Impacted cerumen, left ear Impacted cerumen, left ear Diagnosis 03/27/2020 12:49:00 PM EDT [facility] Z6843 Body mass index (BMI) 50.0-59.9, adult B santos mass index (BMI) 50.0-59.9, adult Diagnosis 03/27/2020 12:49:00 PM EDT [facility] E669 Obesity, unspecified Obesity, unspecified Diagnosis 03/27/2020 12:49:00 PM EDT [facility] R569 Unspecified convulsions Unspecified convulsions Diagno sis 03/27/2020 12:49:00 PM EDT [facility] B372 Candidiasis of skin and nail Candidiasis of skin and n ail Diagnosis 03/27/2020 12:49:00 PM EDT [facility] R1030 Lower abdominal pain, unspecified Lower abdomina l pain, unspecified Diagnosis 03/27/2020 12:49:00 PM EDT [facility] K37859 Unspecified asthma, uncomplicated Unspecified as thma, uncomplicated Diagnosis 03/22/2020 03:26:00 PM EDT [facility] G8929 Other chronic pain Other chronic pain Diagnosis 03:26:00 PM EDT [facility] [id number] Personal history of nicotine dependence Personal history of nicotine dependence Diagnosis 03/09/2020 05:46:00 PM EDT [facility] K2970 Gastritis, unspecified, without bleeding Gastritis, unspecified, without bleeding Diagnosis 03/09/2020 05:46:00 PM EDT [facility] R109 Unspecified abdominal pain Unspecified abdominal pain Diagnosis 03/09/2020 05:46:00 PM EDT [facility] R631 Polydipsia Polydipsia Diagnosis 02/23/2020 10:36:00 AM ED T [facility] R358 Other polyuria Other polyuria Diagnosis 02/23/2020 10:36: 00 AM EDT [facility] J449 Chronic obstructive pulmonary disease, u nspecified Chronic obstructive pulmonary disease, unspecified Diagnosis 02/23/2020 10:36:00 AM EDT [facility] K43.2 Incisional hernia without obstruction or gangrene Incisional hernia without obstruction or Diagnosis 02/09/2020 08:51:[address] [facility] K43.0 Incisional hernia with obstruction, with out gangrene Incisional hernia with obstruction, with Diagnosis 02/09/2020 08:51:[address] [facility] J98.8 Other specified respiratory disorders Ot her specified respiratory disorders Diagnosis 02/04/2020 10:12:45 AM EDT [facility] U07.1 COVID-19 COVID-19 Diagnosis 02/04/2020 10:12:45 AM ED T [facility] K429 Umbilical hernia without obstruction or gangrene Umbilical hernia without obstruction or gangrene Diagnosis 01/27/2020 11:08:00 AM EDT [facility] A04562 Epilepsy, unspecified, not intractable, without status epilepticus Epilepsy, unspecified, not intractable, without status epilepticus Diagnosis 01/13/2020 01:42:00 PM [facility] 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, thoracolumbar region Spondylolysi s, thoracolumbar region Diagnosis 01/12/2020 12:32:00 PM [facility] R0789 Other chest pain Other chest pain Diagnosis 01/12/2020 12 :32:00 PM [facility] [id number] Other urethral stricture, male, unspecif ied site Other urethral stricture, male, unspecified site Diagnosis 12/31/2019 08:45:00 AM [facility] R3121 Asymptomatic microscopic hematuria Asymptomatic microscopic hematuria Diagnosis 12/31/2019 08:45:00 AM [facility] Z1159 Encounter for screening for other viral diseases Encounter for screening for other viral diseases Diagnosis 12/28/2019 09:05:00 AM [facility] Z713 Dietary counseling and surveillance Dietary coun seling and surveillance Diagnosis 12/14/2019 12:59:00 PM [facility] R99 Ill-defined and unknown cause of mortali ty Ill-defined and unknown cause of mortality Diagnosis 12/14/2019 12:20:00 PM [facility] M6281 Muscle weakness (generalized) Muscle weakness (general ized) Diagnosis 11/29/2019 10:16:00 AM [facility] M545 Low back pain Low back pain Diagnosis 11/29/2019 10:16:00 AM [facility] E785 Hyperlipidemia, unspecified Hyperlipidemia, unspecifie d Diagnosis 11/25/2019 12:56:00 PM [facility] K5900 Constipation, unspecified Constipation, unspecified Di agnosis 11/25/2019 12:56:00 PM [facility] K219 Gastro-esophageal reflux disease without esophagitis Gastro-esophageal reflux disease without esophagitis Diagnosis 11/25/2019 12:56:00 PM ED [facility] X62604 Other spondylosis, thoracic region Other spondyl osis, thoracic region Diagnosis 11/19/2019 10:35:00 AM [facility] E91987 Other spondylosis, lumbar region Other spondylos is, lumbar region Diagnosis 11/19/2019 10:35:00 AM [facility] Z1331 Encounter for screening for depression E ncounter for screening for depression Diagnosis 11/18/2019 02:08:00 PM EDT [facility] J309 Allergic rhinitis, unspecified Allergic rhinitis, unsp ecified Diagnosis 11/18/2019 02:08:00 PM EDT [facility] R310 Gross hematuria Gross hematuria Diagnosis 10/21/2019 03:3 1:00 PM EDT [facility] R300 Dysuria Dysuria Diagnosis 10/21/2019 03:31:00 PM ED T [facility] Surgeries/Procedures Procedure Description Date Indications Data Source(s) SURGERY CASE REQUEST OUTSIDE FACILITY ONLY SURGERY CA SE REQUEST OUTSIDE FACILITY ONLY Routine 06/28/2020 1:27 PM EST Arthritis of right subtalar joint Closed displaced fracture of right talus, unspecified fracture morphology, sequela 06/28/2020 01:27:23 PM EST Closed displa loyd fracture of right talus, unspecified fracture morphology, sequelaArthritis of right subtalar joint [facility] Closed displaced fracture of right talus , unspecified fracture morphology, sequela Arthritis of right subtalar joint BLOOD TYPING ABO TYPE AND SCREEN Routine 02/09/2020 12:30 PM EDT 02/09/2020 04:30:00 PM EDT [facility] ECG ROUTINE ECG W/LEAST 12 LDS TRCG ONLY W/O I&R ECG 12-LEAD Routine 02/04/2020 11:34 AM EDT Incisional hernia with obstruction 02/04/2020 03:34:20 PM ED T Incisional hernia with obstruction [facility] Incisional hernia with obstruction BLOOD COUNT COMPLETE AUTOMATED CBC Routine 0 11:30 AM EDT Incisional hernia with obstruction 02/04/2020 03:30:00 PM ED T Incisional hernia with obstruction [facility] Incisional hernia with obstruction BASIC METABOLIC PANEL CALCIUM TOTAL BASIC METABOLIC PANEL Routi ne 02/04/2020 11:30 AM EDT Incisional hernia with obstruction 02/04/2020 03:30:00 PM ED T Incisional hernia with obstruction [facility] Incisional hernia with obstruction Medical Nutrition Therapy Assmnt Interv Face To Face 15 Min 12/14/2019 12:00:00 AM EDT [facility] ([facility]) Brief Emotional/Behav Assessment W/ Scoring Doc Per Standard Inst 11/18/2019 12:00:00 AM EDT [facility] ([facility]) EST-LEVEL 4 10/06/2019 12:00:00 AM EDT - 10/06/2019 1 2:00:00 AM EDT [facility] ([facility]) Debridement, nails, 6 or more, any method 10/06/2019 12:00:00 AM EDT - 10/06/2019 12:00:00 AM EDT [facility] ([facility]) Results ID Date Data Source [id number] 08/09/2020 02:33:00 PM EST [facility] Name Value Range Interpretation Code Description Data Giovana rce(s) Supporting Document(s) SARS-CoV-2 (COVID 19) NEGATIVE - SARS-CoV-2 (COVID19) [place] This lab was ordered by [facility] a nd reported by [facility]. ID Date Data Source [id number] 07/31/2020 05:40:00 PM EST [facility] Name Value Range Interpretation Code Description Data Giovana rce(s) Supporting Document(s) SARS coronavirus 2 RNA [Presence] in Res piratory specimen by TYRON with probe detection [place] This lab was ordered by [facility] a nd reported by [facility]. ID Date Data Source [id number] 06/28/2020 01:51:[address] [facility] Name Value Range Interpretation Code Description Data Giovana rce(s) Supporting Document(s) Progress Note [facility] TJROLy3gGaXXCzYv24/YJRvqNFUgk2PpLDhiNPq9RWsfRCTmG7QnHMK8zP7nSUV3NBpCEaOpDiGuYlXr [facility] [file] ICAgICAgICAgICAgICAgICAgICAgICAgICAgICAgICAgICAgICAgICAgICAgICAgICAgICAgICAgICAg ICAgICAgICAgICAgICAgICAgICAgICANCiAgICAgIC AgICAgICAgICAgICAgICAgICAgICAgICAgICAgICAgICAgICAgICAgICAgICAgICAgICAgICAgICAgIC AgICAgICAgICAgICAgICAgICAgICAgICAgICAgICAgICANCiAgICAgICAgICAgICAgICAgICAgICAgIC AgICAgICAgICAgICAgICAgICAgICAgICAgICAgICAg ICAgICAgICAgICAgICAgICAgICAgICAgICAgICAgICAgICAgICAgICAgICANCiAgICAgICAgICAgICAg ICAgICAgICAgICAgICAgICAgICAgICAgICAgICAgICAgICAgICAgICAgICAgICAgICAgICAgICAgICAg ICAgICAgICAgICAgICAgICAgICAgICAgICANCiAgIC AgICAgICAgICAgICAgICAgICAgICAgICAgICAgICAgICAgICAgICAgICAgICAgICAgICAgICAgICAgIC AgICAgICAgICAgICAgICAgICAgICAgICAgICAgICAgICAgICANCiAgICAgICAgICAgICAgICAgICAgIC AgICAgICAgICAgICAgICAgICAgICAgICAgICAgICAg ICAgICAgICAgICAgICAgICAgICAgICAgICAgICAgICAgICAgICAgICAgICAgICANCiAgICAgICAgICAg ICAgICAgICAgICAgICAgICAgICAgICAgICAgICAgICAgICAgICAgICAgICAgICAgICAgICAgICAgICAg ICAgICAgICAgICAgICAgICAgICAgICAgICAgICANCi AgICAgICAgICAgICAgICAgICAgICAgICAgICAgICAgICAgICAgICAgICAgICAgICAgICAgICAgICAgIC AgICAgICAgICAgICAgICAgICAgICAgICAgICAgICAgICAgICAgICANCiAgICAgICAgICAgICAgICAgIC AgICAgICAgICAgICAgICAgICAgICAgICAgICAgICAg ICAgICAgICAgICAgICAgICAgICAgICAgICAgICAgICAgICAgICAgICAgICAgICAgICANCiAgICAgICAg ICAgICAgICAgICAgICAgICAgICAgICAgICAgICAgICAgICAgICAgICAgICAgICAgICAgICAgICAgICAg ICAgICAgICAgICAgICAgICAgICAgICAgICAgICAgIC ANCjw/mOMdY2kgwHWnxqG7W2apAl6FNs5YPC3bb4NtZHOpPNamwePbCkiLYuIjVHClInoHRmp2FFkwTQ 8FuBMtP4HgT9MoWZswNM6DRJMpLKYjbIFyVQUxADHkCfP9FSNfZSnhZH3MiPKnAMapKMNbLOJgKdXlEP AjJZ4AQXTpA822jkGnDj4MJi8AQjQpYJ8irb4TRfis WIYrEirEVvi6GDszFG2QjENjpNZqAUQsVLAZVlDxQ8zzr4SeEiaeJLTNNTzjFV3Re3JctHSjWTq+Pg0K ED3zu3ZoAInoORLtWS2ysg6YRIiCMjQtW0SjrSpoHWQmy7wbQAFbZR0xgNVvUNY4HUEht1X4VI3lLjXl beVpy4RxKkKwZtmjETEoYKWpFDTuYc0nDJIxSMKfSt LpVIDFCP7UZZLpNCWtwKJaQLGtUZWWCD0NQVufKNK1SJEymuAjyMJpRCrsEJ3LUSQnzuKcTmgaEIEKOV o+Uy7MMR5te9GwZAowVVToHX6sji5XDEjARdEnA3B7rHHxL3U0ZNamZd0SGNYiBUAwVqIzYANYJDjjYG 9VZU5vywT8RW5KiVQzLGQwMVWlxRQmMTi2W25ykDGu KSaaRN4WURT+Jey+Iu2ZAXKqVLFkSBDfLpWxNSGESuWsD9UkE7KGj2YlQ2JrFB78tGvqtdLiWVsgBL5Q DA0qDBTkUXQOYQ8ZuUDjyS2auzJmFjBdJQMERmPnA38fvMXlNOJvTAL8TVIbRo0ISJXzI1HohtDbuRfp nlLfDEJmJAOYVB3CJNxoimWxkPOaiIvtDO13mBgiDH 0QAg3NQvBlWB7sas6XfKWvQe8ABDRaAP1YFQNeUCZyBAYzSVZ7CBVmOkPnYTycLAVhJNUrFGV9BSJeLU XhTU7TOuDyZNEdTwO5QIYbAOBpTAAhpm3RYWAcMHMcFgT6LwMbZWXvZLPwGOgrIAOmUHOaFBS5PYTaFZ InIE6JSqZyJCRoMBZ7STXbJGExFNTxzc0HFSGdQKRs ZSJ1KyMeYIMrDVUzXDgzEVCxVTJ0YSCxVVMeCBLnDS4NLeGeGFUaFDtdBOXwWSBtHTLnto0YDMMkONUm PAK4XyYwBQOnSKSmIFnrSIZdRMZ9UsK5OKGqSMSuNZ4TMtCrBBDiPYk3SJBiZOQiNVVurx4HTCUmBAJc UIK7GOVnHFCvWTMiDBpiEGBfNTQ5SbOvHDXeCDYiNO 8BBrHxSHKbQAj4RKwsJKHyPYNbql1WTALnCAWfKIN3YYCiNOCqAMWqCUpqFUQwICGkZHDpOPRxIOZePM 2MEeJxDKDdZkO9UadbDLPgPWYark2IEDSsRRIkTmWlWLQtIRQqLPZgFRygFPTeRQJsFES0PKBzYQGnHT 1AIsMcNIWhBlLrYWpnBECjODYseu8OARAbTPNyUyE5 DLJjGHKxZAOyLDlvDYFvPIFxHRp5IDBzNNFeMK0DLnQnLKOsRaE0MPwbZSMzEVSzyb0SGYOkLKDfIWAa EgEhFBDuVCYvJZfxJUYcMNR1Ufw2YFWjOLIuYI2UWtYkOCSeSdNkZRcoCNCrGXPpsv0UNWWqHLHwRoJ6 IOElMIDtUZQpKVhmFHLpSGU5RiHmFVJfSVUpAA2ZPt SfISAqWbA4RJwuVNFzLQCdyc0FhWZbkIuwxe4KZNaEJx3IjVkbADKfOJxsYf1soWMgKYFdPAUDTh5Fbg YfOFIbNCIUAIynMNLyWIYuNiRqGbYnBeQ4SMZkIXB6CEKcQxdbJsMyKmOcQZDcEcR5LWUlKSRxOPSqPR ZjO3ZdXnafMEWqMGD9WPSdNWX5AjR+SX5jTRr+En3Xx4YnedX1ajEvRLaoHqWcWt7IYKBUM5VCKo== ID Date Data Source [id number] 06/06/2020 03:12:03 PM [facility] Name Value Range Interpretation Code Description Data Giovana rce(s) Supporting Document(s) Progress Note [facility] GCZEJz7tBrHWHjMt30/JZFgwJDYpa1CxIQyzDJp3WNpeHTGcA5NhQVQ7oX4jNDI4HWhVKzDdOjGlAWJt lbm [file] ICAgICAgICAgICAgICAgICAgICAgICAgICAgICAgICAgICAgICAgICAgICAgICAgICAgDQogICAgICAg ICAgICAgICAgICAgICAgICAgICAgICAgICAgICAgIC AgICAgICAgICAgICAgICAgICAgICAgICAgICAgICAgICAgICAgICAgICAgICAgICAgICAgICAgICAgIC AgDQogICAgICAgICAgICAgICAgICAgICAgICAgICAgICAgICAgICAgICAgICAgICAgICAgICAgICAgIC AgICAgICAgICAgICAgICAgICAgICAgICAgICAgICAg ICAgICAgICAgICAgDQogICAgICAgICAgICAgICAgICAgICAgICAgICAgICAgICAgICAgICAgICAgICAg ICAgICAgICAgICAgICAgICAgICAgICAgICAgICAgICAgICAgICAgICAgICAgICAgICAgICAgDQogICAg ICAgICAgICAgICAgICAgICAgICAgICAgICAgICAgIC AgICAgICAgICAgICAgICAgICAgICAgICAgICAgICAgICAgICAgICAgICAgICAgICAgICAgICAgICAgIC AgICAgDQogICAgICAgICAgICAgICAgICAgICAgICAgICAgICAgICAgICAgICAgICAgICAgICAgICAgIC AgICAgICAgICAgICAgICAgICAgICAgICAgICAgICAg ICAgICAgICAgICAgICAgDQogICAgICAgICAgICAgICAgICAgICAgICAgICAgICAgICAgICAgICAgICAg ICAgICAgICAgICAgICAgICAgICAgICAgICAgICAgICAgICAgICAgICAgICAgICAgICAgICAgICAgDQog ICAgICAgICAgICAgICAgICAgICAgICAgICAgICAgIC AgICAgICAgICAgICAgICAgICAgICAgICAgICAgICAgICAgICAgICAgICAgICAgICAgICAgICAgICAgIC AgICAgICAgDQogICAgICAgICAgICAgICAgICAgICAgICAgICAgICAgICAgICAgICAgICAgICAgICAgIC AgICAgICAgICAgICAgICAgICAgICAgICAgICAgICAg ICAgICAgICAgICAgICAgICAgDQogICAgICAgICAgICAgICAgICAgICAgICAgICAgICAgICAgICAgICAg ICAgICAgICAgICAgICAgICAgICAgICAgICAgICAgICAgICAgICAgICAgICAgICAgICAgICAgICAgICAg YEs0L7ijOVKoBRYxVX4xARo3Ku8+ETcJLbXeDAD1ri XqvP8QXX7zt3ZyUMdmYOFsh4BzZCa5GR9HOJHmTLujZT6QLBnewy4NJKGfCQVxgVAOm9nlAtSoGOK7WU MqQjgcCR4FEGQtW2ozicWhKMPnVTBOMGckGYRTIE4ZCgQrQ7TkkX51OOUNJw8+DQplbmRvYmoNCjIxID Lxd5FwQFo1ZE4ENQRyNqexz8IbDiIgYGCBUIntXR4C DTU0TBNtZHEgYc1VWVGhR400vkWnWX4LQo8EViIgLQ2mwu8LCwBdCUJhTgkXPzo9BHuiOX4ObRDwOCiA hy5yomVrljCPz2TwmmLneUBFvJIyoBGxFZgyXDRFSSGbxBEaNO1eRG3sMAXaDIRdQxKsNAGWAT3ZCYMg LLMjzGHlUWYwWYCWRK4DXBbvPTW9QPPgzdVfgWGyEM xqSA7KCHBtmzToKtKtYNOBSYk+Wt4IWS6je5GnBPvfVdRkSO0ksr7ACMgYPkDeH7R3sCUdL8F7LKhfKg 3VEXKwVVOmBXzbTUKFYNzvZD4ZDM5xrhS3ZW0GkEZxIQYxKMSwaNFvBVe9V71deWZdJBijNT3LFLE+Pi A+Ig5ANLDtTTLiQVStPtPvMRUSQzGmT4FkW2LOc5Dr O4XtDV70aCrxpmXaMNovQI9TVY6aCITaSUKYEB3FiRMtuL8uziEeIZHdQEGWUmZnO04rxIOkHBNlKCBv GCOsVq9ZXCVqB0DqzeOxcVovwoTeIWDjUAUHFZ3CDEoaxzMmuPBhxUhxVY19yGjvGI1ZGv5EQpYoCH2z dm3KrECvWd0QRZIqBR8OLWMcLJDtHOQkHAF0QQNrQf TkRGmgSUWmWCEbBVD9SQFsZNJmXX6JZoHnUTTlIYhgPWAcVJJjMRPqhx8JENAnEZUhYBS6AJFiQBIyPI CgVUodLWXmAVEkHKM2JEHpIRBsEU6DYcLqSIXmINN3HZSiLGCzOSJceu1KMPSkPWOiTlO4FRWbRKJbPV OyYSbhNQIxVOL7QBd2JNSgRWErDI1UOaGgXZPsSBPx LdhrQDZsYMXwwe2PGDPrZHNeHITzIONkEFJtMOVzDUnzJROcAAX9ICW3AAYnOJVoCA1PCrEyMYElDII8 ZEXoZAEfVJXggh2BEAWkVCNvEhO9PIWtDFAkSDEaPGbsUGFdHZW2VAe1LXAdQOTkFS4ZWqTtPTDtXZln VhLuZBDsDRRhbr4XQYWsDRThCFUeSWCjEUNkPHHiDG gsPMOsIDS8QrC9FIXoILLiTM0CWcWfKSFxLVz5IPTkIVCjSAYwea8LWDDhTSSlZSZ5XGGsHRTvVGKfBZ myOMZtNWV8EmUdTGEsCWOnPX6RFkLkYFLyRLn7HxDwSIMfQJRomx5TGJQoTIEoWBX7WNWpECJcOODvTW ivSWAvWBEbLbC5KLKvBXYtRW3SFiKuODOiTpLeGLNm TFIvZUPmng8RwRWpwXvgtt9NURlULr0YsFilKJG0DOccRk5wzGRmKmKwGKGIBw2GdvHbSBZcULOFJXsk YPUdDZL9LSB2KRMyIjEuAYA2XGjpNOI7UJJbPMY6QOQoVnDnIjW3QFVbXSw0OuF2N2L6WCOoMJMuRVTy KdI5NGM6TcV9BxX+OL6gOPw+Nw1Er8HwzeR8nvLaYYjuSSMkEc6JVGBQF4FIZi== ID Date Data Source [id number] 05/10/2020 10:14:00 AM EDT [facility] ([facility]) Name Value Range Interpretation Code Description Data Giovana rce(s) Supporting Document(s) Surgical pathology study Laboratory test result [facility] ([facility]) FINAL DIAGNOSIS Esophagus, below Z-line, biopsy: [...] MD 05/12/2020 1140 ID Date Data Source [id number] 05/09/2020 02:17:[address] [facility] Name Value Range Interpretation Code Description Data Giovana rce(s) Supporting Document(s) Progress Note [facility] DAUXNt1zNlLCZeLx99/ATLdnVYSam7RpCYvhOCt1URrhYGPoL2SpGOR9eJ5zPUS0LGmVArQjEbZaOESo [facility] [file] ICAgICAgICAgICAgICAgICAgICAgICAgICAgICAgICAgICAgICAgICAgICAgICAgICAgICAgICAgICAg ICAgICAgICAgICAgICAgICAgICAgICAgICAgICAgICAgDQogICAgICAgICAgICAgICAgICAgICAgICAg ICAgICAgICAgICAgICAgICAgICAgICAgICAgICAgIC AgICAgICAgICAgICAgICAgICAgICAgICAgICAgICAgICAgICAgICAgICAgDQogICAgICAgICAgICAgIC AgICAgICAgICAgICAgICAgICAgICAgICAgICAgICAgICAgICAgICAgICAgICAgICAgICAgICAgICAgIC AgICAgICAgICAgICAgICAgICAgICAgICAgDQogICAg ICAgICAgICAgICAgICAgICAgICAgICAgICAgICAgICAgICAgICAgICAgICAgICAgICAgICAgICAgICAg ICAgICAgICAgICAgICAgICAgICAgICAgICAgICAgICAgICAgDQogICAgICAgICAgICAgICAgICAgICAg ICAgICAgICAgICAgICAgICAgICAgICAgICAgICAgIC AgICAgICAgICAgICAgICAgICAgICAgICAgICAgICAgICAgICAgICAgICAgICAgDQogICAgICAgICAgIC AgICAgICAgICAgICAgICAgICAgICAgICAgICAgICAgICAgICAgICAgICAgICAgICAgICAgICAgICAgIC AgICAgICAgICAgICAgICAgICAgICAgICAgICAgDQog ICAgICAgICAgICAgICAgICAgICAgICAgICAgICAgICAgICAgICAgICAgICAgICAgICAgICAgICAgICAg ICAgICAgICAgICAgICAgICAgICAgICAgICAgICAgICAgICAgICAgDQogICAgICAgICAgICAgICAgICAg ICAgICAgICAgICAgICAgICAgICAgICAgICAgICAgIC AgICAgICAgICAgICAgICAgICAgICAgICAgICAgICAgICAgICAgICAgICAgICAgICAgDQogICAgICAgIC AgICAgICAgICAgICAgICAgICAgICAgICAgICAgICAgICAgICAgICAgICAgICAgICAgICAgICAgICAgIC AgICAgICAgICAgICAgICAgICAgICAgICAgICAgICAg DQogICAgICAgICAgICAgICAgICAgICAgICAgICAgICAgICAgICAgICAgICAgICAgICAgICAgICAgICAg VWGrHJMiWOBuFBRwDQKtAENwUUGoJCJnJSEnGZHzKZXdEXUqEGJiQITkUSr4H0riMQIcQWAwEA7aFYs2 Jz8+DQoRMbZoORG5gvIceP3IXR9jp7LkXCbpRCTqx9 ZxCTh4MF9APKEuDCmxZR6YQJzzaw4BMXRxRBQqpQOLk8baUvUiZEI3YMQgXcrcGQ5DWSNrC5rahtBpDV BbDBMNXImkZREEPVnkRLJRHPAmPDBbUuVaMQbjZQ2Ld2QgzFE3ULt+Us1ECJ2rk6WuETjcAGGmEJ7enz 4YEMsOTaHqA5FmqzW9AQTbQHIyDf4IFTPgXPZqbGVv NeFsUOUTCzPtC7FziR25ZLIZRk9+JTxhtwEzKrfCQkHoIWFoa7RwIMk9FC8BOZCbARf6zLWdTPXiN1Ri p0HtDq72TNCcQlsjL6SpbCqxijTGSYRgPIvhnHzkBB2BXUK7LRSdZmRkFhAxSwEpTHX8BYRlXZ4cAPod ST2ZTBG4UKigQGVaKVElT5tPWnYrMBAqUBQggEcuLA 6CVdTwV0UzciIggAPcRWGuIDFQIi7+LEtlhrReXhvJLmIvRDRfb3FqBKz4XQ9FXGQgROtpBH7KYBJcmE 1cGIueDX4OTtIeRKMpQTUUIgKhU17ssHVcFQt2E7NxKxSsRBRmSwfdAFBoBZloTaGtFPZeRuLgWIfkBZ 4+ID4+JSwkJS8OLRvdwoRnZWUjXn2JPDDwVDOzJN5j FMWqYINhG4T5tWxoEKAOZhHuR0exfzqvYU4eIAEpD197hJfeqhNoZMQvMEJiDd6MSXFaBPJ4HOFrkMSo ThHgBIPLDZirCO9SpDXlJLF7uS2lJDeyNJOpKXXqO0iSWwEsaDapAG89tJqgapOzdJChGRc+Wi8LZD4y k0SiLLe4geKvJGneKNZ8LAtzUUEvKECgYJXhYDY1SN Z9ZFGJCqLfLNRaTMIfXHkeDMPlUFIssv1HBXWmWJV4Lmm5ZWMrLHJnYHNlBFtuAHBxQKJ1XWe1VBOiJC GdLS6GZgClTUEfCSOhHGhtZAXfSELyzc6QBMBeGMTpDaR3IfCpIIZrZKOqKXycJACkNPQxEVYtTOHoWA ZxQK8WVhByTTLkLNhoNHGfXUHlKUJylh9QGPEjNFTr WyM5GxIqHFJsZRMnLHwtKBPfYXUgZiG9TUZbKXUtIH7NQuTiYGUjTEX9ObGdXLZiIWPptf3YZOEvOEYx BxVcGBFhBPGnCQFcTTotRTVeEIZxWdC9UGIrCYXbCQ0LFvKiZGWlUTBtEVCvYBScSGLdfs2BNGMaMURb GRY3SWHhWTPbHMCqXIclSROpFHG9PhU7GURxYDOvRZ 9OStHiNDEgVCA0OpSzXTQwWNZhbj3JZIWvKNNyLXlpCUKpOFCxCYZtGYquPAOcLYB8ZKPwUNGjCOZsSY 4JBlRmSTXzYCxxEEHgRELyUCHsdo5KREAmEHR0GVj2NnGrVCDrLIGdMEfkLZXhLVQcUbTsCXEdHCUwFN 0GUpGiLYPzNYUzJkIkFXLaXFZvnv3NCLRiOYH3MATm EbZiDGFnGCKvGRbkSSZcQDLeZEObZFBzONQoGL3YZdNfBZPoMMGhVTMqMYHjPOOyiz8IHJLtTLO1SlHf OqFnRQIfDNPaRWyxTMYbYHYdFCZ9PUAxQFOsFO5VNwCmNQExVKS0ASAoEHYnIVLkzb7NJLSaJWG8Nzaz WeBzWBXvNXKbGWaiBKDzTUL4ZkB2SKZhAJZiBB1MNu JkQYSbJTM0ZBQfGOKbPJAweq4DZJXsYOZ9QTi1NxCyGILmANJkAEdmNZReJWX7QNR1DYKnFYWkUH6GGr OiNQsmCGKQWzk6IIawX7u7JTJfPH6OK7Wjd9FeMgYpJXAOQRfaMG6zqkGnATRaMo2LY7oBIis1PNKhY1 UkBhJiZHO1IOpvUhWsHfH8DgnaLbDrPmH2KP7mFMGd GHG5DCWaXjL2BZXhQTA9FWEoQJBqDEChN2HhQBmvEeNgTD8EBj9DTsC6WCB2iGLiOs5JKYDsBKEOJgPp ZN2YBKk= ID Date Data Source [id number] 05/05/2020 11:55:00 AM EDT [facility] Name Value Range Interpretation Code Description Data [facility] rce(s) Supporting Document(s) SARS coronavirus 2 RNA [facility] This lab was ordered by [facility] and reported by [facility]. ID Date Data Source [id number] 04/27/2020 06:09:[address] [facility] XR FOOT 3 OR MORE VIEWS [id number] RESUL TInterpreted by:Fallon Smith ankle 2 views [...] Name Value Range Interpretation Code Description Data [facility] rce(s) Supporting Document(s) ID Date Data Source [id number] 04/27/2020 06:09:[address] [facility] XR ANKLE 2 VIEWS [id number] RESULTInterp reted by:Fallon Smith ankle 2 views [...] rce(s) Supporting Document(s) ID Date Data Source [id number] 04/26/2020 04:20:[address] [facility] Name Value Range Interpretation Code Description Data Giovana rce(s) Supporting Document(s) Progress Note [facility] BGALRw1vOtVIFoZy47/JBDllIQAbl4NrKUulYSg5FWbcPQVwD3YaNSE5xB4fAOZ1MHjYRfPxNiLyWZBp lbm [file] txIoItGO2RNc1LFgP1DVY1dSSnYs9SXkG3PizTMyWcKL3YFTj= ID Date Data Source [id number] 03/29/2020 12:20:00 [place] [address] PHONE: [phone] FAX: [phone] Name .................. : [facility] [place] Acct Number.................. : [id number] ROOM. ................. : Number ................... : [id number] Stay type ............. : CLINIC Discharge Date......... ... : 03/27/20 Admit Date ......... : 03/27/20 Admit Phys .................... : HESTER HARD Date of ....... : 1990 Family Phys ................... : HESTER HARD Phone .................. : [phone] Age ................................ : 29 Film# .................. .:[id number] Sex ................................. : M Unsigned transcriptions are preliminary reports and do not represent a medical or legal document CT ABD & PELV W/O ORAL W/O IV [id number] COMPLETE:03/27/20 14:16 RLB 62019 (REASON FOR ABDOMEN: LOWER ABD PAIN CT [...] dose: 2953.0 mGycm Page 1 of 2 [facility] [address] [address] PHONE: [phone] FAX: [phone] Name .................. : [facility] [place] Acct Number.................. : [id number] ROOM. ................. : MR Number ................... : [id number] Stay type ............. : CLINIC Discharge Date......... ... : 03/27/20 Admit Date ......... : 03/27/20 Admit Phys .................... : HESTER HARD Date of ....... : 1990 Family Phys ................... : Vigo HARD Phone .................. : [phone] Age ................................ : 29 Film# .................. .:[id number] Sex ................................. : M Unsigned transcriptions are preliminary reports and do not represent a medical or legal document CT ABD & PELV W/O ORAL W/O IV [id number] COMPLETE:03/27/20 14:16 RLB [id number] (REASON FOR ABDOMEN: LOWER ABD PAIN Electronically Reviewed and Signed By Yousif Bernardo M.D. , 03/29/20 12:20, [place] Transcribe Initials: GUCCI , Transcribe Date: 03/27/20 23:48, Dictation Date: Page 2 of 2 Name Value Range Interpretation Code Description Data Giovana rce(s) Supporting Document(s) ID Date Data Source [id number] 03/22/2020 03:26:00 PM EDT [facility] 1 OrderSheet [facility] Emergency Department [address] [place] [address] Phone #: ext- [phone] 03/22/2020 15:24 Patient: NICK TRUJILLO Sex: M [...] rce(s) Supporting Document(s) ID Date Data Source [id number] 03/22/2020 03:26:00 PM EDT [facility] 1 Medication Reconciliation Report [facility] Emergency Department [address] [place] [address] Phone #: ext- [phone] 03/22/2020 15:24 Patient: [...] ODT Oral, prn 2 Medication Reconciliation Report [facility] Emergency Department [address] [place] [address] Phone #: ext- [phone] 03/22/2020 15:24 Patient: NICK TRUJILLO Sex: M : 1990 Age: 29yThe source(s) of the original Home Medication information:patientThe following Medications were given to the patient in the Emergency Department:Ativan [IM] IM 1 mg, administered: 03/22/2020 4:03:00 PMThe following Medications were prescribed to the patient:None. Name Value Range Interpretation Code Description Data Giovana rce(s) Supporting Document(s) ID Date Data Source [id number] 03/22/2020 03:26:00 PM EDT [place] [address] Medication Administration Record [facility] Emergency Department [address] [place] [address] Phone #: ext- [phone] 03/22/2020 15:24 Patient: NICK TRUJILLO Sex: M : 1990 Age: 29yWeight: 190.5 kgHeight/Length: 71 inBMI: 58.6ALLERGIES: Dilantin, Naproxen, Naproxsyn, Tylenol with codein Date/Time Medication Administered Medication OrderedGiven ATIVAN [IM] (LORAZEPAM) Ativan IM 1 mg (HIGH ALERT16:03 03/22/2020 Dose: 1 mg IM MEDICATION)Enedina Banda R.N. Name Value Range Interpretation Code Description Data Giovana rce(s) Supporting Document(s) ID Date Data Source [id number] 03/22/2020 03:26:00 PM EDT [facility] 1 General Instructions [facility] Emergency Department [address] [place] [address] Phone #: ext- [phone] 03/22/2020 15:24 Patient: NICK TRUJILLO [facility]#: [id number] Sex: M : 1990 Age: 29yChronic periumbilical abdominal pain, now resolved. (recurrent).INSTRUCTIONSDrink plenty of fluids. Avoid alcohol and NSAIDS. NSAIDS include aspirin, ibuprofen (Advil) and naproxen(Aleve). Avoid fatty, fried/greasy, lactose-containing (such as milk, cheese and ice cream), salty and spicyfoods. No alcohol. Do not smoke.Warnings: Further evaluation is necessary ([facility]). It is very important to [...] provided to patient viapaper. 2 General Instructions [facility] Emergency Department [address] [place] [address] Phone #: ext- [phone] 03/22/2020 15:24 Patient: INCK TRUJILLO Sex: M : 1990 Age: 29yUnderstanding of the discharge instructions verbalized by patient. Expected course of illness, dischargeinstructions, activity level, diet, follow-up appointment and risks and benefits of treatment reviewed withpatient and understanding verbalized. Agrees to plan of care.Follow-up with: [facility], , , [address] [place] [address], [address] Follow up in five days even if [...] options include broth, soup, 3 General Instructions [facility] Emergency Department [address] [place] [address] Phone #: ext- [phone] 03/22/2020 15:24 Patient: [...] chest, arm, back, neck or jaw pain [phone] [employer]. [address] [place] [address], [place] [address]. All rights reserved. This information is not intended as asubstitute for professional medical care. Always follow your healthcare professional's instructions. You have been given the following additional information: Unknown Causes of Abdominal Pain (Male)(Electronically signed by Cleo Gruber M.D. 03/22/2020 17:36) Name Value Range Interpretation Code Description Data Giovana rce(s) Supporting Document(s) ID Date Data Source [id number] 03/22/2020 03:26:00 PM EDT [facility] 1 Clinical Report - Nurses [facility] Emergency Department [address] [place] [address] Phone #: ext- [phone] 03/22/2020 15:24 Patient: [...] Osei R.N. 2 Clinical Report - Nurses [facility] Emergency Department [address] [place] [address] Phone #: ext- [phone] 03/22/2020 15:24 Patient: [...] Osei R.N. 3 Clinical Report - Nurses [facility] Emergency Department [address] [place] [address] Phone #: ext- [phone] 03/22/2020 15:24 Patient: INCK TRUJILLO Sex: M : 1990 Age: 29y 15:59 03/22/20. BP: 141/76. MAP: 97. HR: 98. RR: 20. O2 saturation: 100%. --15:59 03/22/20 Olga employment coordinatorEnedina ER Tech1 16:03 03/22/2020 Ativan (LORazepam) IM [...] Patient verbalized understanding. Written instructions provided in Moldovan. The patient was discharged home. He left ambulatory and via private vehicle. --17:24 03/22/20 Enedina Banda R.N.Locked/Released at 03/22/2020 17:25 by Enedina Banda R.N. Name Value Range Interpretation Code Description Data Giovana rce(s) Supporting Document(s) ID Date Data Source [id number] 03/22/2020 03:26:00 PM EDT [facility] 1 Clinical Report - Physicians/Mid Levels [facility] Emergency Department [address] [place] [address] Phone #: ext- [phone] 03/22/2020 15:24 Patient: NICK TRUJILLO Sex: M [...] umbilical hernia repair several weeks ago at [facility], saw his surgeon last week [...] Cholecystectomy. 2 Clinical Report - Physicians/Mid Levels [facility] Emergency Department [address] [place] [address] Phone #: ext- [phone] 03/22/2020 15:24 Patient: NICK TRUJILLO [facility]#: [id number] Sex: M : 1990 Age: 29y Hernia [...] pulses 3 Clinical Report - Physicians/Mid Levels [facility] Emergency Department [address] [place] [address] Phone #: ext- [phone] 03/22/2020 15:24 Patient: NICK TRUJILLO Sex: M [...] 8.2) 4 Clinical Report - Physicians/Mid Levels [facility] Emergency Department [address] [place] [address] Phone #: ext- [phone] 03/22/2020 15:24 Patient: [...] be referred to our surgeon here at [facility] for his chronic, recurrent abdominal pain, [...] (recurrent). 5 Clinical Report - Physicians/Mid Levels [facility] Emergency Department [address] [place] [address] Phone #: ext- [phone] 03/22/2020 15:24 Patient: NICK TRUJILLO Sex: M : 1990 Age: 29yINSTRUCTIONS Drink plenty of fluids. Avoid alcohol and NSAIDS. NSAIDS include aspirin, ibuprofen (Advil) and naproxen (Aleve). Avoid fatty, fried/greasy, lactose-containing (such as milk, cheese and ice cream), salty and spicy foods. No alcohol. Do not smoke. Warnings: Further evaluation is necessary ([facility]). It is very important to [...] plan of care. Follow-up with: [facility], , , [address] [place] [address], [id number] Follow up in five days even if well. Call for an appointment. Reason for referral: evaluation and treatment. Summary of care provided to patient via paper. 6 Clinical Report - Physicians/Mid Levels [facility] Emergency Department [address] [place] [address] Phone #: ext- [phone] 03/22/2020 15:24 Patient: NICK TRUJILLO Sex: M : 1990 Age: 29y(Electronically signed by Cleo Gruber M.D. 03/22/2020 17:36) Name Value Range Interpretation Code Description Data Giovana rce(s) Supporting Document(s) ID Date Data Source [id number] 03/22/2020 04:34:00 PM EDT [facility] Name Value Range Interpretation Code Description Data Giovana rce(s) Supporting Document(s) Lipase [Enzymatic activity/volume] in Serum or Plasma 34 U/L 13 - 60 [facility] ID Date Data Source [id number] 03/22/2020 04:34:00 PM EDT [facility] Name Value Range Interpretation Code Description Data Giovana rce(s) Supporting Document(s) COMPREHENSIVE METABOLIC PANEL [facility] COMPREHENSIVE METABOLIC PANEL Sodium [Moles/volume] in Serum or Plasma 140 mEq/L 134 - 153 [facility] Potassium [Moles/volume] in Serum or Plasma 4.2 mEq/L 3.6 - 5.0 [facility] Chloride [Moles/volume] in Serum or Plasma 106 mEq/L 98 - 107 [facility] Carbon dioxide, total [Moles/volume] in Serum or Plasma 24 MEQ/L 22 - 30 [facility] Glucose [Mass/volume] in Serum or Plasma 110 MG/DL 65 - 110 [facility] BUN 12 MG/DL 7 - 21 [facility] al Creatinine [Mass/volume] in Serum or Plasma 0.9 MG/DL 0.7 - 1.5 [facility] BUN/CREAT 13 8 - 27 [facility] al Protein [Mass/volume] in Serum or Plasma 7.7 G/DL 6.3 - 8.2 [facility] Albumin [Mass/volume] in Serum or Plasma 4.1 G/DL 3.9 - 5.0 [facility] Globulin [Mass/volume] in Serum by calculation 3.6 GM/DL 2.4 - 3.2 H [facility] A/G RATIO 1.1 0.8 - 2.0 [facility] Calcium [Mass/volume] in Serum or Plasma 9.0 MG/DL 8.4 - 10.2 [facility] Bilirubin.total [Mass/volume] in Serum or Plasma <0.7 MG/DL 0.2 - 1.3 [facility] Alkaline phosphatase [Enzymatic activity/volume] in Serum or Plasma 83 U/L 38 - 126 [facility] Aspartate aminotransferase [Enzymatic activity/volume] in Serum or Plasma 27 U/L 5 - 40 [facility] Alanine aminotransferase [Enzymatic activity/volume] in Seru m or Plasma 37 U/L 7 - 56 [facility] Anion gap 3 in Serum or Plasma 10.0 mmol/L 8.0 - 16.0 [facility] AGE 29 yrs [facility] al NON-AA GFR >60 mL/min [facility] ital AFR AMER GFR >60 mL/min [facility] Male GFR In [...] >32 mL/min Normal ID Date Data Source [id number] 03/22/2020 04:15:00 PM EDT [facility] Name Value Range Interpretation Code Description Data Giovana rce(s) Supporting Document(s) CBC W/AUTOMATED DIFF [facility] COMPLETE BLOOD COUNT Leukocytes [#/volume] in Blood by Automated count 9.6 10^3/uL 4.2 - 1 1.0 [facility] Erythrocytes [#/volume] in Blood by Automated count 5.41 10^6/uL 4. 50 - 6.30 [facility] Hemoglobin [Mass/volume] in Blood 15.9 g/dL 14.0 - 16.0 [facility] Hematocrit [Volume Fraction] of Blood by Automated count 48.7 % 4 1.0 - 51.0 [facility] Erythrocyte mean corpuscular volume [Entitic volume] by Auto mated count 90.0 fL 80.0 - 94.0 [facility] Erythrocyte mean corpuscular hemoglobin [Entitic mass] by Automated count 29.4 pg 27.0 - 34.0 [facility] Erythrocyte mean corpuscular hemoglobin concentration [Mass/volume] by Automated count 32.6 g/dL 31.0 - 36.0 [facility] Erythrocyte distribution width [Ratio] by Automated count 14.4 % 11.5 - 14.8 [facility] Platelets [#/volume] in Blood by Automated count 197 10^3/uL 150 - 45 0 [facility] Platelet mean volume [Entitic volume] in Blood by Automated count 9.0 fL 7.4 - 10.4 [facility] Neutrophils/100 leukocytes in Blood by Automated count 63.6 % 37. 0 - 80.0 [facility] Lymphocytes/100 leukocytes in Blood by Manual count 22.2 % 25.0 - 40.0 L [facility] Monocytes/100 leukocytes in Blood by Automated count 9.9 % 3.0 - 8.0 H [facility] Eosinophils/100 leukocytes in Blood by Automated count 3.7 % 0.0 - 7.0 [facility] Basophils/100 leukocytes in Blood by Automated count 0.3 % 0.0 - 2.0 [facility] %IG 0.3 % 0.0 - 0.[address] [facility] al %NRBC 0.0 % 0.0 - 0.0 [facility] Neutrophils [#/volume] in Blood by Automated count 6.13 10^3/uL 2.00 - 6.90 [facility] Lymphocytes [#/volume] in Blood by Automated count 2.14 10^3/uL 0.60 - 3.40 [facility] Monocytes [#/volume] in Blood by Automated count 0.95 10^3/uL 0.00 - 0.90 H [facility] Eosinophils [#/volume] in Blood by Automated count 0.36 10^3/uL 0.00 - 0.70 [facility] Basophils [#/volume] in Blood by Automated count 0.03 10^3/uL 0.00 - 0.20 [facility] #IG 0.03 10^3/uL 0.00 - 0.10 [facility] #NRBC 0.00 10^3/uL 0.00 - 0.00 [facility] MANUAL DIFF NOT INDICATED [facility] RBC MORPH NOT INDICATED [facility] spital ID Date Data Source [id number] 03/13/2020 02:06:00 PM EDT [facility] [address] [place] [address] PHONE: [phone] FAX: [phone] Name .................. : GAVIOTA ROMERO [place] Acct Number.................. : [id number] ROOM. ................. : TR-08 Number ................... : [id number] Stay type ............. : E/R Discharge Date......... ... : Admit Date ......... : 03/09/20 Admit Phys .................... : TALIA Madison Date of ....... : 1990 Family Phys ................... : HESTER HARD Phone .................. : [phone] Age ................................ : 29 Film# .................. .:[id number] Sex ................................. : M Unsigned transcriptions are preliminary reports and do not represent a medical or legal document CT ABD & PELV W/ORAL ONLY [id number] COMPLETE:03/09/20 21:11 KJE [id number] Reason(s): Abdominal Pain CT OF THE ABDOMEN [...] 75 Isovue 370 Page 1 of 2 [facility] [address] [place] [address] PHONE: [phone] FAX: [phone] Name .................. : GAVIOTA Madison Acct Number.................. : [id number] ROOM. ................. : TR-08 MR Number ................... : [id number] Stay type ............. : E/R Discharge Date......... ... : Admit Date ......... : 03/09/20 Admit Phys .................... : TALIA Madison Date of ....... : 1990 Family Phys ................... : Vigo HARD Phone .................. : [phone] Age ................................ : 29 Film# .................. .:[id number] Sex ................................. : M Unsigned transcriptions are preliminary reports and do not represent a medical or legal document CT ABD & PELV W/ORAL ONLY [id number] COMPLETE:03/09/20 21:11 KJE [id number] Reason(s): Abdominal Pain Method of administration: Intravenous Electronically Reviewed and Signed By Yousif Bernardo M.D. , 03/13/20 14:06, [facility] Transcribe Initials: GUCCI , Transcribe Date: 03/09/20 23:30, Dictation Date: Copy for: EMERGENCY DEPT via modem Copy for: 710 MED REC DISCHARGED Page 2 of 2 Name Value Range Interpretation Code Description Data Giovana rce(s) Supporting Document(s) ID Date Data Source [id number] 03/09/2020 05:46:00 PM EDT [facility] 1 OrderSheet [facility] Emergency Department [address] [place] [address] Phone #: ext- [phone] 03/09/2020 17:13 Patient: NICK TRUJILLO Sex: M [...] Description Priority Entered Acknowledged Initialed 2 OrderSheet [facility] Emergency Department [address] [place] [address] Phone #: ext- [phone] 03/09/2020 17:13 Patient: [...] rce(s) Supporting Document(s) ID Date Data Source [id number] 03/09/2020 05:46:00 PM EDT [facility] 1 Medication Reconciliation Report [facility] Emergency Department [address] [place] [address] Phone #: ext- [phone] 03/09/2020 17:13 Patient: [...] ODT Oral, prn 2 Medication Reconciliation Report [facility] Emergency Department [address] [place] [address] Phone #: ext- [phone] 03/09/2020 17:13 Patient: NICK TRUJILLO Sex: M : 1990 Age: 29yThe source(s) of the original Home Medication information:Not obtained.The following Medications were given to the patient in the Emergency Department:None.The following Medications were prescribed to the patient:None. Name Value Range Interpretation Code Description Data [facility](s) Supporting Document(s) ID Date Data Source [id number] 03/09/2020 05:46:00 PM EDT [facility] 1 Medication Administration Record [facility] Emergency Department [address] [place] [address] Phone #: ext [phone] 03/09/2020 17:13 Patient: NICK TRUJILLO Sex: M : 1990 Age: 29yWeight: 179.1 kgHeight/Length: 71 inBMI: 55.1ALLERGIES: Naproxen, Dilantin, Tylenol with codiene, Naproxsyn, Tylenol with codeinDate/Time Medication Administered Medication Ordered Name Value Range Interpretation Code Description Data [facility](s) Supporting Document(s) ID Date Data Source [id number] 03/09/2020 05:46:00 PM EDT [facility] 1 General Instructions [facility] Emergency Department [address] [place] [address] Phone #: ext [phone] 03/09/2020 17:13 Patient: NICK TRUJILLO Sex: M [...] when you follow up. 2 General Instructions [facility] Emergency Department [address] [place] [address] Phone #: ext- [phone] 03/09/2020 17:13 Patient: [...] with your healthcare provider or specialist for kentrell jimenez recommendations. If you have diarrhea, it may [...] red or black color) 3 General Instructions [facility] Emergency Department [address] [place] [address] Phone #: ext- [phone] 03/09/2020 17:13 Patient: NICK TRUJILLO Sex: M : 1990 Age: 29y Jaundice (yellow color of eyes and skin) New onset of weakness, dizziness or fainting New onset of chest, arm, back, neck or jaw pain [phone] [employer] [place] [address]. All rights reserved. This information is not [...] bloating Feeling full quickly 4 General Instructions [facility] Emergency Department [address] [place] [address] Phone #: ext- [phone] 03/09/2020 17:13 Patient: [...] dizzy Shortness of breath 5 General Instructions [facility] Emergency Department [address] [place] [address] Phone #: qgm- [phone] 03/09/2020 17:13 Patient: NICK TRUJILLO Sex: M : 1990 Age: 29y Unexplained weight loss Fever of 100.4F (38C) or higher, or as directed by your healthcare provider [phone] [employer]. [address] [place] [address]. All rights reserved. This information is not [...] rce(s) Supporting Document(s) ID Date Data Source [id number] 03/09/2020 05:46:00 PM EDT [facility] 1 Clinical Report - Nurses [facility] Emergency Department [address] [place] [address] Phone #: ext- [phone] 03/09/2020 17:13 Patient: NICK TRUJILLO Sex: M : 1990 Age: 29yTRIAGEArrived by EMS. Historian: patient. ( PT HAD HERNIA SURGERY 4 WEEKS AGO AND HE SAYS ITRHURTS ALOT. NO DRAINAGE. PT HAS APPT NEXT WITH SURGEON-DR. FINNEY IN [place].PROCEDURE [facility] T [facility]).Triage time: 17:14 03/09/2020. 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 --17:18 03/09/20 Enedina Banda R.N.17:14 03/09/20. BP: 153/90. HR: 106. RR: 20. O2 saturation: 96%. Temp: 98.8 F. Pain level now 10.--17:18 03/09/20 Enedina Banda R.N.Weight: 179.1 kg. Height/Length: [...] Banda R.N.Naproxsyn. 2 Clinical Report - Nurses [facility] Emergency Department [address] [place] [address] Phone #: ext- [phone] 03/09/2020 17:13 Patient: [...] treatment room. --17:18 03/09/20 Enedina Banda R.N.PHYSICAL HXMSSYAHKD09:29 03/09/20. To room via stretcher.GENERAL / NEURO [...] RR: 16. O2 saturation: 97%. --18:27 03/09/20 [place] employment coordinatorEnedina, Tech1 18:30 03/09/20. Patient gowned. Head of bed elevated 75 degrees. Two patient identifiers checked. Call light placed in reach. Bed placed in lowest position. Brakes of bed on. Patient ready for evaluation- chart flagged. --18:30 03/09/20 Phillip Drummond RN 3 Clinical Report - Nurses [facility] Emergency Department [address] [place] [address] Phone #: ext- [phone] 03/09/2020 17:13 Patient: NICK TRUJILLO Sex: M : 1990 Age: 29y 19:16 03/09/2020 Two (2) unsuccessful IV access attempts including the right antecubital space. --19:26 8/13/20 Phillip Drummond RN Checked patient name and [...] --23:56 03/09/20 Bean Peace RN.DISPOSITION / DISCHARGE [place] Coma Scale: 15- eyes open- spontaneous (4); best verbal response- oriented (5); best motor response- obeys commands (6). Condition at departure: improved. No learning barriers present. Reviewed referral to family practice and a mold technician for followup. Reviewed need for increased fluid intake. Activity restrictions (rest) reviewed. Patient verbalized understanding. Written instructions provided in Moldovan. The patient was discharged home. He left [...] Peace RN. 4 Clinical Report - Nurses [facility] Emergency Department [address] [place] [address] Phone #: ext [phone] 03/09/2020 17:13 [id number] Sex: [facility] : 1990 Age: 29yLocked/Released at 03/10/2020 00:45 by Bean Peace RN Name Value Range Interpretation Code Description Data Giovana rce(s) Supporting Document(s) ID Date Data Source [id number] 03/09/2020 05:46:00 PM EDT [facility] 1 Clinical Report - Physicians/Mid Levels [facility] Emergency Department [address] [place] [address] Phone #: ext- [phone] 03/09/2020 17:13 Patient: NICK TRUJILLO [facility]#: [id number] Sex: M : 1990 Age: 29y Time Seen: 18:33 03/09/2020. Historian- patient. Disposition decision: 00:11 03/10/2020.HISTORY OF PRESENT ILLNESS Chief Complaint: ABDOMINAL PAIN. (29 year old morbuidly obese patient with abdominal pain past few weeks. had a cholecystectomy a nd later umbilical hernia repair done also at [facility]. has an appointment with f/u with [...] Repair. 2 Clinical Report - Physicians/Mid Levels [facility] Emergency Department [address] [place] [address] Phone #: ext- [phone] 03/09/2020 17:13 [id number] Sex: M : 1990 Age: 29y Tonsillectomy. [...] sounds 3 Clinical Report - Physicians/Mid Levels [facility] Emergency Department [address] [place] [address] Phone #: ext- [phone] 03/09/2020 17:13 Patient: [...] Exam CT ABD //T// PELV W/[place] [address] PHONE: [phone] FAX: [phone] Name .................. : GAVIOTA Madison Acct Number.................. : [id number] ROOM. ... .............. : TR-08 MR Number ................... : [id number] Stay type ............. : E/R Discharge Date......... ... : Admit Date ......... : 03/09/20 Admit Phys .................... : TALIA Madison Date of ....... : 1990 Family Phys ................... : HESTER HARD Phone .................. : [phone] Age ................................ : 29 Film# .................. .:[id number] Sex ................................. : M Unsigned transcriptions are [...] thickening. 4 Clinical Report - Physicians/Mid Levels [facility] Emergency Department [address] [place] [address] Phone #: ext- [phone] 03/09/2020 17:13 Patient: NICK TRUJILLO Sex: M [...] mL: 75 Isovue 370 Page 1of 2 [facility] [address] [place] [address] PHONE: [phone] FAX: [phone] Name .................. : GAVIOTA Madison Acct Number.................. : [id number] ROOM. ................. : TR-08 Number ................... : [id number] Stay type ............. : E/R Discharge Date......... ... : Admit Date ......... : 03/09/20 Admit Phys .................... : TALIA Madison Date of ....... : 1990 Family Phys ................... : HESTER HARD Phone .................. : [phone] Age ..................... ........... : 29 Film# .................. .:[id number] Sex ................................. : M Unsigned transcriptions are preliminary reports and do not represent a medical or legal document CT ABD Reason(s): Abdominal Pain Method of administration: Intravenous Electronically Reviewed and Signed By FARHAD LEONE [facility] Transcribe Initials: GUCCI , Transcribe Date: 03/09/20 23:30, Dictation Date: <<REPDIST>> Page 2of 2ISOVUE 370 CONTRAST (PER ML): (KAVITA: 03/09/2020 20:43) ( MsgRcvd 03/09/2020 21:11) CanceledPREGNANCY STATUS: NA MALE ISOLATION n 5 Clinical Report - Physicians/Mid Levels [facility] Emergency Department [address] [place] [address] Phone #: ext- [phone] 03/09/2020 17:13 Patient: [...] Male GFR Interprentation 20-49 yrs >60 mL/min Oumyxz03-29 yrs >56 mL/min Normal 60-69 yrs >49 mL/min Normal 70-79yrs>42 mL/min Normal 80 and above >35 mL/min Normal Female GFRInterpretation 20-39 yrs >60 mL/min Normal 40-49 yrs >58 mL/minNormal 50-59 yrs >51 mL/min Normal 60-69 yrs >45 mL/min Gdrgkf19-52 yrs >39 mL/min Normal 80 and above >32 mL/min NormalLipase: (KAVITA: 03/09/2020 19:10) ( [facility] 03/09/2020 19:35) Final results Test Result Flag [...] 51.0) 6 Clinical Report - Physicians/Mid Levels [facility] Emergency Department [address] [place] [address] Phone #: ext- [phone] 03/09/2020 17:13 Patient: NICK TRUJILLO Sex: M [...] has an appointment with his surgeon at [facility] next week, advised to keep the appointment, return if any symptoms. Patient/family counseled. Old medical records ordered. Disposition: Discharged home in good and improved cond ition (00:11 Mar 10 2020). Condition: stable. 7 Clinical Report - Physicians/Mid Levels [facility] Emergency Department [address] [place] [address] Phone #: ext- [phone] 03/09/2020 17:13 Patient: NICK TRUJILLO Sex: M [...] rce(s) Supporting Document(s) ID Date Data Source [id number] 03/09/2020 07:33:00 PM EDT [facility] Name Value Range Interpretation Code Description Data [facility] rce(s) Supporting Document(s) UR[facility]ALYSIS [facility] [place] gi[place]anna URINALYSIS SOURCE R [facility] al COLOR yellow NORMAL: Yellow [facility] ospital CLARITY clear NORMAL: Clear [facility] Specific gravity of Urine by Test strip 1.010 1.001 - 1.030 [facility] pH 7 5 - 9 [facility] al Glucose [Mass/volume] in Urine by Test strip NORM NORMAL: Negat [facility] Bilirubin.total [Presence] in Urine by Test strip NEG NORMAL: Negative [facility] Ketones [Presence] in Urine by Test strip NEG NORMAL: Negative [facility] Protein [Mass/volume] in Urine by Test strip NEG NORMAL: Negat rebekah [facility] Nitrite [Presence] in Urine by Test strip NEG NORMAL: Negative [facility] BLOOD NEG NORMAL: Negative [facility] Leukocyte esterase [Presence] in Urine by Test strip NEG MILAGROS L: Negative [facility] Urobilinogen [Mass/volume] in Urine by Test strip NOR less vanessa n 1.0 mg/dL [facility] MICROSCOPIC Not Indicate [facility] ospital ID Date Data Source [id number] 03/09/2020 07:38:00 PM EDT [facility] Name Value Range Interpretation Code Description Data Giovana rce(s) Supporting Document(s) COMPREHENSIVE METABOLIC PANEL [facility] COMPREHENSIVE METABOLIC PANEL Sodium [Moles/volume] in Serum or Plasma 142 mEq/L 134 - 153 [facility] Potassium [Moles/volume] in Serum or Plasma 3.8 mEq/L 3.6 - 5.0 [facility] Chloride [Moles/volume] in Serum or Plasma 106 mEq/L 98 - 107 [facility] Carbon dioxide, total [Moles/volume] in Serum or Plasma 21 MEQ/L 22 - 30 L [facility] Glucose [Mass/volume] in Serum or Plasma 118 MG/DL 65 - 110 H [facility] BUN 11 MG/DL 7 - 21 [facility] al Creatinine [Mass/volume] in Serum or Plasma 0.9 MG/DL 0.7 - 1.5 [facility] BUN/CREAT 12 8 - 27 [facility] al Protein [Mass/volume] in Serum or Plasma 7.8 G/DL 6.3 - 8.2 [facility] Albumin [Mass/volume] in Serum or Plasma 4.4 G/DL 3.9 - 5.0 [facility] Globulin [Mass/volume] in Serum by calculation 3.4 GM/DL 2.4 - 3.2 H [facility] A/G RATIO 1.3 0.8 - 2.0 [facility] Calcium [Mass/volume] in Serum or Plasma 9.2 MG/DL 8.4 - 10.2 [facility] Bilirubin.total [Mass/volume] in Serum or Plasma <0.7 MG/DL 0.2 - 1.3 [facility] Alkaline phosphatase [Enzymatic activity/volume] in Serum or Plasma 98 U/L 38 - 126 [facility] Aspartate aminotransferase [Enzymatic activity/volume] in Serum or Plasma 20 U/L 5 - 40 [facility] Alanine aminotransferase [Enzymatic activity/volume] in Seru m or Plasma 32 U/L 7 - 56 [facility] Anion gap 3 in Serum or Plasma 15.0 mmol/L 8.0 - 16.0 [facility] AGE [address] [facility] NON-AA GFR >60 mL/min [facility] ital AFR AMER GFR >60 mL/min [facility] Male GFR In [...] >32 mL/min Normal ID Date Data Source [id number] 03/09/2020 07:35:00 PM EDT [facility] Name Value Range Interpretation Code Description Data Giovana rce(s) Supporting Document(s) Lipase [Enzymatic activity/volume] in Serum or Plasma 39 U/L 13 - 60 [facility] ID Date Data Source [id number] 03/09/2020 07:19:00 PM EDT [facility] Name Value Range Interpretation Code Description Data Giovana rce(s) Supporting Document(s) Lactate [Moles/volume] in Serum or Plasma 3.4 MMOL/L 0.2 - 2.2 H [facility] ID Date Data Source [id number] [facility] Value Range Interpretation Code Description Data Giovana rce(s) Supporting Document(s) CBC W/AUTOMATED DIFF [facility] COMPLETE BLOOD COUNT Leukocytes [#/volume] in Blood by Automated count 11.1 10^3/uL 4.2 - 11.0 H [facility] Erythrocytes [#/volume] in Blood by Automated count 5.71 10^6/uL 4. 50 - 6.30 [facility] Hemoglobin [Mass/volume] in Blood 16.4 g/dL 14.0 - 16.0 H [facility] Hematocrit [Volume Fraction] of Blood by Automated count 51.4 % 4 1.0 - 51.0 H [facility] Erythrocyte mean corpuscular volume [Entitic volume] by Auto mated count 90.0 fL 80.0 - 94.0 [facility] Erythrocyte mean corpuscular hemoglobin [Entitic mass] by Automated count 28.7 pg 27.0 - 34.0 [facility] Erythrocyte mean corpuscular hemoglobin concentration [Mass/volume] by Automated count 31.9 g/dL 31.0 - 36.0 [facility] Erythrocyte distribution width [Ratio] by Automated count 14.1 % 11.5 - 14.8 [facility] Platelets [#/volume] in Blood by Automated count 209 10^3/uL 150 - 45 0 [facility] Platelet mean volume [Entitic volume] in Blood by Automated count 9.0 fL 7.4 - 10.4 [facility] Neutrophils/100 leukocytes in Blood by Automated count 71.7 % 37. 0 - 80.0 [facility] Lymphocytes/100 leukocytes in Blood by Manual count 16.6 % 25.0 - 40.0 L [facility] Monocytes/100 leukocytes in Blood by Automated count 5.9 % 3.0 - 8.0 [facility] Eosinophils/100 leukocytes in Blood by Automated count 5.1 % 0.0 - 7.0 [facility] Basophils/100 leukocytes in Blood by Automated count 0.3 % 0.0 - 2.0 [facility] %IG 0.4 % 0.0 - 0.0 H [facility] al %NRBC 0.0 % 0.0 - 0.0 [facility] al Neutrophils [#/volume] in Blood by Automated count 7.98 10^3/uL 2.00 - 6.90 H [facility] Lymphocytes [#/volume] in Blood by Automated count 1.85 10^3/uL 0.60 - 3.40 [facility] Monocytes [#/volume] in Blood by Automated count 0.66 10^3/uL 0.00 - 0.90 [facility] Eosinophils [#/volume] in Blood by Automated count 0.57 10^3/uL 0.00 - 0.70 [facility] Basophils [#/volume] in Blood by Automated count 0.03 10^3/uL 0.00 - 0.20 [facility] #IG 0.04 10^3/uL 0.00 - 0.10 [facility] ospital #NRBC 0.00 10^3/uL 0.00 - 0.00 [facility] ospital MANUAL DIFF NOT INDICATED [facility] RBC MORPH NOT INDICATED [facility] spital ID Date Data Source [id number] 02/23/2020 11:36:00 AM EDT [facility] ([facility]) Name Value Range Interpretation Code Description Data Giovana rce(s) Supporting Document(s) CBC W/Automated Diff Laboratory test result [facility] ([facility]) Is patient fasting? N WBC 10.6 10^3/uL 4.2-11.0 [facility] ([facility]) Is patient fasting? N RBC 5.78 10^6/uL 4.50-6.30 [facility] ([facility]) Is patient fasting? N Hematocrit 51.1 % 41.0-51.0 Above high normal [facility] ([facility]) Is patient fasting? N Hemoglobin 16.3 g/dL 14.0-16.0 Above high normal [facility] ([facility]) Is patient fasting? N MCV 88.4 fL 80.0-94.0 [facility] ([facility]) Is patient fasting? N RDW 13.5 % 11.5-14.8 [facility] ([facility]) Is patient fasting? N MCH 28.2 pg 27.0-34.0 [facility] ([facility]) Is patient fasting? N MCHC 31.9 g/dL 31.0-36.0 [facility] ([facility]) Is patient fasting? N Platelets 262 10^3/uL 150-450 [facility] ([facility]) Is patient fasting? N Neut 65.2 % 37.0-80.0 [facility] ([facility]) Is patient fasting? N Lymph 18.6 % 25.0-40.0 Below low normal [facility] ( [facility]) Is patient fasting? N MPV 9.6 fL 7.4-10.4 [facility] ([facility]) Is patient fasting? N Eos 7.6 % 0.0-7.0 Above high normal [facility] ([facility]) Is patient fasting? N Estill 7.6 % 3.0-8.0 [facility] ([facility]) Is patient fasting? N Baso 0.5 % 0.0-2.0 [facility] ([facility]) Is patient fasting? N %NRBC 0.0 % 0.0-0.0 [facility] ([facility]) Is patient fasting? N %Ig 0.5 % 0.0-0.0 Above high normal [facility] ([facility]) Is patient fasting? N #Lymph 1.97 10^3/uL 0.60-3.40 [facility] ([facility]) Is patient fasting? N #Neut 6.92 10^3/uL 2.00-6.90 Above high normal [facility] ([facility]) Is patient fasting? N #Estill 0.81 10^3/uL 0.00-0.90 [facility] ([facility]) Is patient fasting? N #Eos 0.81 10^3/uL 0.00-0.70 Above high normal [facility] ([facility]) Is patient fasting? N #Baso 0.05 10^3/uL 0.00-0.20 [facility] ([facility]) Is patient fasting? N #Ig 0.05 10^3/uL 0.00-0.10 [facility] ([facility]) Is patient fasting? N Manual Diff Laboratory test result M [facility] Center) Is patient fasting? N RBC Morph Laboratory test result [facility] ([facility]) Is patient fasting? N #NRBC 0.00 10^3/uL 0.00-0.00 [facility] ([facility]) Is patient fasting? N ID Date Data Source [id number] 02/23/2020 11:36:00 AM EDT [facility] ([facility]) Name Value Range Interpretation Code Description Data Giovana rce(s) Supporting Document(s) Hemoglobin A1c/Hemoglobin.total in Blood 4.9 % 4.4-6.1 [facility] ([facility]) Is patient fasting? N Topiramate [Mass/volume] in Serum or Plasma 7.3 ug/mL 2.0-25.0 [facility] ([facility]) Is patient fasting? N ID Date Data Source [id number] 02/23/2020 11:36:00 AM EDT [facility] ([facility]) Name Value Range Interpretation Code Description Data Giovana rce(s) Supporting Document(s) Comprehensive Metabo Laboratory test result [facility] ([facility]) Is patient fasting? N Chloride 103 meq/L 98-107 [facility] ([facility]) Is patient fasting? N Sodium 141 meq/L 134-153 [facility] ([facility]) Is patient fasting? N Potassium 3.8 meq/L 3.6-5.0 [facility] ([facility]) Is patient fasting? N Co2 25 meq/L 22-30 [facility] Is patient fasting? N BUN 8 mg/dL 7-21 [facility] ([facility]) Is patient fasting? N Glucose 86 mg/dL 65-110 [facility] ([facility]) Is patient fasting? N Creatinine 0.9 mg/dL 0.7-1.5 [facility] ([facility]) Is patient fasting? N Total Protein 7.8 g/dL 6.3-8.2 [facility] ([facility]) Is patient fasting? N BUN/Creat 9 8-27 [facility] ([facility]) Is patient fasting? N A/G Ratio 1.2 0.8-2.0 [facility] ([facility]) Is patient fasting? N Albumin 4.3 g/dL 3.9-5.0 [facility] ([facility]) Is patient fasting? N Globulin 3.5 GM/DL 2.4-3.2 Above high normal [facility] ([facility]) Is patient fasting? N Calcium 9.4 mg/dL 8.4-10.2 [facility] ([facility]) Is patient fasting? N Alkaline Phos 101 U/L 38-126 [facility] ([facility]) Is patient fasting? N Total Bili Laboratory test result 0.2-1.3 [place] [facility] ([facility]) Is patient fasting? N Sgot/Ast 19 U/L 5-40 [facility] ([facility]) Is patient fasting? N SGPT/Alt 35 U/L 7-56 [facility] ([facility]) Is patient fasting? N Anion Gap 13.0 mmol/L 8.0-16.0 [facility] ([facility]) Is patient fasting? N Age 29 yrs [facility] ([facility]) Is patient fasting? N Non-Aa GFR Laboratory test result [facility] ([facility]) Is patient fasting? N Afr Amer GFR Laboratory test result [facility] ([facility]) Is patient fasting? N ID Date Data Source [id number] 02/23/2020 11:36:00 AM EDT [facility] ([facility]) Name Value Range Interpretation Code Description Data Giovana rce(s) Supporting Document(s) Thyrotropin [Units/volume] in Serum or Plasma 1.92 uIU/mL 0.47-5.01 [facility] ([facility]) Is patient fasting? N Thyroxine (T4) free [Mass/volume] in Serum or Plasma 0.85 ng/dL 0.93-1.70 Below low normal [facility] ([facility]) Is patient fasting? N ID Date Data Source [id number] 02/23/2020 11:36:00 AM EDT [facility] ([facility]) Name Value Range Interpretation Code Description Data Giovana rce(s) Supporting Document(s) Free Frisco Lt Chains,S 31.4 mg/L 3.3-19.4 Above high normal [facility] ([facility]) Is patient fasting? N Fr[place]/Lambda Ratio,S 1.03 NA 0.26-1.65 MEDE NT ([facility]) Is patient fasting? N Free Lambda Lt Chains,S 30.5 mg/L 5.7-26.3 Above high normal [facility] ([facility]) Is patient fasting? N ID Date Data Source [id number] 02/29/2020 07:03:00 AM EDT [facility] Name Value Range Interpretation Code Description Data Giovana rce(s) Supporting Document(s) Topiramate [Mass/volume] in Serum or Plasma 7.3 ug/mL 2.0-25.0 [facility] This test was developed and its performa nce characteristicsdetermined by [facility]. It has not been cleared or approvedby the Food and Drug Administration. Detection Limit = 1.0 ID Date Data Source [id number] 02/26/2020 06:44:00 AM EDT [facility] Name Value Range Interpretation Code Description Data Giovana rce(s) Supporting Document(s) Immunoglobulin light chains.kappa.free [Mass/volume] in Seru m 31.4 mg/L 3.3-19.4 H [facility] Immunoglobulin light chains.lambda.free [Mass/volume] in Serum or Plasma 30.5 mg/L 5.7-26.3 H [facility] Immunoglobulin light chains.kappa.free/I mmunoglobulin light chains.lambda.free [Mass Ratio] in Serum 1.03 NA 0.26-1.65 [facility] ID Date Data Source [id number] 02/23/2020 11:36:00 AM EDT [facility] ([facility]) Name Value Range Interpretation Code Description Data Giovana rce(s) Supporting Document(s) Thyrotropin [Units/volume] in Serum or Plasma Laboratory test result [facility] ([facility]) Thyroxine (T4) free [Mass/volume] in Serum or Plasma Laboratory alok t result [facility] ([facility]) Immunoglobulin light chains.kappa.free [Mass/volume] i n Serum Laboratory test result [facility] ([facility]) ID Date Data Source [id number] 02/23/2020 04:35:00 PM EDT [facility] Name Value Range Interpretation Code Description Data Giovana rce(s) Supporting Document(s) Thyroxine (T4) free index in Serum or Plasma by calculation 0.85 NG/DL 0.93 - 1.70 L [facility] ID Date Data Source [id number] 02/23/2020 04:33:00 PM EDT [facility] Name Value Range Interpretation Code Description Data Giovana rce(s) Supporting Document(s) Thyrotropin [Units/volume] in Serum or Plasma by Detec tion limit <= 0.05 mIU/L 1.92 uIU/mL 0.47 - 5.01 [facility] ID Date Data Source [id number] 02/23/2020 04:19:00 PM EDT [facility] Name Value Range Interpretation Code Description Data Giovana rce(s) Supporting Document(s) CBC W/AUTOMATED DIFF [facility] COMPLETE BLOOD COUNT Leukocytes [#/volume] in Blood by Automated count 10.6 10^3/uL 4.2 - 11.0 [facility] Erythrocytes [#/volume] in Blood by Automated count 5.78 10^6/uL 4. 50 - 6.30 [facility] Hemoglobin [Mass/volume] in Blood 16.3 g/dL 14.0 - 16.0 H [facility] Hematocrit [Volume Fraction] of Blood by Automated count 51.1 % 4 1.0 - 51.0 H [facility] Erythrocyte mean corpuscular volume [Entitic volume] by Auto mated count 88.4 fL 80.0 - 94.0 [facility] Erythrocyte mean corpuscular hemoglobin [Entitic mass] by Automated count 28.2 pg 27.0 - 34.0 [facility] Erythrocyte mean corpuscular hemoglobin concentration [Mass/volume] by Automated count 31.9 g/dL 31.0 - 36.0 [facility] Erythrocyte distribution width [Ratio] by Automated count 13.5 % 11.5 - 14.8 [facility] Platelets [#/volume] in Blood by Automated count 262 10^3/uL 150 - 45 0 [facility] Platelet mean volume [Entitic volume] in Blood by Automated count 9.6 fL 7.4 - 10.4 [facility] Neutrophils/100 leukocytes in Blood by Automated count 65.2 % 37. 0 - 80.0 [facility] Lymphocytes/100 leukocytes in Blood by Manual count 18.6 % 25.0 - 40.0 L [facility] Monocytes/100 leukocytes in Blood by Automated count 7.6 % 3.0 - 8.0 [facility] Eosinophils/100 leukocytes in Blood by Automated count 7.6 % 0.0 - 7.0 H [facility] Basophils/100 leukocytes in Blood by Automated count 0.5 % 0.0 - 2.0 [facility] %IG 0.5 % 0.0 - 0.0 H [facility] al %NRBC 0.0 % 0.0 - 0.0 [facility] al Neutrophils [#/volume] in Blood by Automated count 6.92 10^3/uL 2.00 - 6.90 H [facility] Lymphocytes [#/volume] in Blood by Automated count 1.97 10^3/uL 0.60 - 3.40 [facility] Monocytes [#/volume] in Blood by Automated count 0.81 10^3/uL 0.00 - 0.90 [facility] Eosinophils [#/volume] in Blood by Automated count 0.81 10^3/uL 0.00 - 0.70 H [facility] Basophils [#/volume] in Blood by Automated count 0.05 10^3/uL 0.00 - 0.20 [facility] #IG 0.05 10^3/uL 0.00 - 0.10 [facility] ospital #NRBC 0.00 10^3/uL 0.00 - 0.00 [facility] ospital MANUAL DIFF NOT INDICATED [facility] RBC MORPH NOT INDICATED [facility] spital ID Date Data Source [id number] 02/23/2020 04:14:00 PM EDT [facility] Name Value Range Interpretation Code Description Data Giovana rce(s) Supporting Document(s) COMPREHENSIVE METABOLIC PANEL [facility] COMPREHENSIVE METABOLIC PANEL Sodium [Moles/volume] in Serum or Plasma 141 mEq/L 134 - 153 [facility] Potassium [Moles/volume] in Serum or Plasma 3.8 mEq/L 3.6 - 5.0 [facility] Chloride [Moles/volume] in Serum or Plasma 103 mEq/L 98 - 107 [facility] Carbon dioxide, total [Moles/volume] in Serum or Plasma 25 MEQ/L 22 - 30 [facility] Glucose [Mass/volume] in Serum or Plasma 86 MG/DL 65 - 110 [facility] BUN 8 MG/DL 7 - 21 [facility] al Creatinine [Mass/volume] in Serum or Plasma 0.9 MG/DL 0.7 - 1.5 [facility] BUN/CREAT 9 8 - 27 [facility] al Protein [Mass/volume] in Serum or Plasma 7.8 G/DL 6.3 - 8.2 [facility] Albumin [Mass/volume] in Serum or Plasma 4.3 G/DL 3.9 - 5.0 [facility] Globulin [Mass/volume] in Serum by calculation 3.5 GM/DL 2.4 - 3.2 H [facility] A/G RATIO 1.2 0.8 - 2.0 [facility] Calcium [Mass/volume] in Serum or Plasma 9.4 MG/DL 8.4 - 10.2 [facility] Bilirubin.total [Mass/volume] in Serum or Plasma <0.7 MG/DL 0.2 - 1.3 [facility] Alkaline phosphatase [Enzymatic activity/volume] in Serum or Plasma 101 U/L 38 - 126 [facility] Aspartate aminotransferase [Enzymatic activity/volume] in Serum or Plasma 19 U/L 5 - 40 [facility] Alanine aminotransferase [Enzymatic activity/volume] in Seru m or Plasma 35 U/L 7 - 56 [facility] Anion gap 3 in Serum or Plasma 13.0 mmol/L 8.0 - 16.0 [facility] AGE 29 yrs [facility] al NON-AA GFR >60 mL/min [facility] ital AFR AMER GFR >60 mL/min [facility] Ho spital Male GFR In [...] >32 mL/min Normal ID Date Data Source [id number] 02/23/2020 04:05:00 PM EDT [facility] Name Value Range Interpretation Code Description Data Giovana rce(s) Supporting Document(s) Hemoglobin A1c/Hemoglobin.total in Blood 4.9 % 4.4 - 6.1 [facility] {A1]{HB] ID Date Data Source [id number] 02/10/2020 09:57:30 AM EDT [facility] CorporationPAT[facility] NT INFORMATIONPatient MRN Name Date of Age Gend*PT [id number] Nick Trujillo Los 1990 29 years M SDCPT Location Admission Date/Time Visit [facility] --- --- EPI ID CSN Admitting Provider [id number] Robert Tamayo MD([id number]) [place] [address] OPERATIVE REPORT OPNAME: NICK TRUJILLO [place]#: [id number] #: [id number] ADMISSION DATE: 02/09/2020DOB: 1990 SEX: M PT TYPE: H SURACCT #: [id number] CARE PHYSICIAN: ADITYA ROOTDATE OF OPERATION: 020PREOPERATIVE DIAGNOSIS:Incarcerated incisional hernia.POSTOPERATIVE DIAGNOSIS:Incarcerated [...] reversal of general anesthesia.SANIA MENDOZA/QUEENIE Job #: [id number] DOC #: [id number] Name Value Range Interpretation Code Description Data Giovana rce(s) Supporting Document(s) ID Date Data Source [id number] 02/09/2020 02:36:21 PM EDT [facility] SPEC EXP DATE 02/12/2020PATI ENT ABO/Rh A NEGATIVEANTIBODY SCREEN NEGATIVETESTING SITE PERFORMED AT [address] [place] [address] [id number] BANK COMMENT BLOOD TYPE CONFIRMED. Name Value Range Interpretation Code Description Data Giovana mccurdy(s) Supporting Document(s) TYPE AND SCREEN [facility] MARGOTY ID Date Data Source [id number] 02/08/2020 07:24:25 AM EDT [facility] CorporationPAT[facility] NT INFORMATIONPatient MRN Name Date of Age Gend*PT [id number] Nick Trujillo 1990 29 years M OPPT Location Admission Date/Time Visit ID Attending Provider --- --- --- Robert Tamayo MD([id number]) EPI ID CSN Admitting Provider [id number] ---OUTPATIENT / OBSERVATIONAL SURGICAL OR INVASIVE PROCEDUREName: [...] Take 50 mg by mouth daily HistoricalProvider, formoterol (PERFOROMIST) 20 MCG/2ML nebulizer solution Take 20 [...] 2 (two) times a dayHistorical Provider, Umeclidinium [place] (INCRUSE ELLIPTA) 62.5 MCG/INH AEPB Inhale 1 [...] thyromegaly. No carotid bruits.MENTAL / NEUROLOGICAL STATUS: [id number]: Clear to auscultation. No wheezes, rhonchi or [...] parts of this document, were dictated using Cozy software. A reasonable attempt at proofreading has beenmade to minimize errors. Please call with any questions or corrections.* Name Value Range Interpretation Code Description Data Giovana rce(s) Supporting Document(s) ID Date Data Source [id number] 02/04/2020 12:14:57 PM EDT [facility] Name Value Range Interpretation Code Description Data Giovana rce(s) Supporting Document(s) EKG [facility] QJIBQo4zCeVCRoTkn5DtYvTnVGLfKF5dsql3O5H9qSKxF1NkfXZvu2inJ9DbS0QiZPMvHETQWZ9KbSOv jb2 [file] plgeRiQea9KoRfvzcejPye8mnfosjqFxV4v9q7ByBk 3fb9t2c8U6HZpGob7s8a3C37DsAbd6u9s2Ug4Yotlt7o9y3Do6YCknpY6B6wMg/9tRly3Kr9/a/Oji/P umgw8sf0/P+vvrSy72pVLAJtDErpr69YD6/QuIxf2Mf684vdPerjqLKoL7lOGNPg8BUKDNaa6NFwy9Qk WCVLk7LJto5cyBYGDcjx7rYPovbdPxVKdUj39dAgn0 hEJVOwicB3fHO/uxTExNE/uxTUyNE/uxTkzNE/exR6cXZUhfFAzODBxyTIuLJRq/VmUxK3/aqYaK/Vgq pqaK/dgqpsaK/VgrpuaK/dgrpgaL/VgspiaL/dgspkaL/VgtpmaL/dgtpoaL/VgupqaL/dgupsaL/Vgv puaL/dgvpgaM/VgwpiaM/dgwpkaM/VgxpmaMjX/1na CFP+1UU8Z+xHqVI0O+jLaHt2F+7WjOl9N+NPzMk6U+wMkOt0V+hLbUb5E+9UwQh3qa77mW4/ux60izY/ Nd4SqyQ/Gz40fiICVj4YuhXRRv31hyFrTe8TfkCiHd39kxQlRx6LggLySj40bfJ/Dk5YcqN/Od07jnTY Bb5MhvBGFx89wwQeEa6XqnYvPt47llGcKe+ZiaPvZj +5gaP/Zj/ZiaP/Zj/5ikLPZcYSyiXXJgD5xkEtTiQLvdKrZrZ6daPoSgDKuuGgWhH5gcC/ZjDZmaQ/Zj D7naQ/8kG6hvA/3sX7scW/8vX6gtM/9wA6yqG/4nO7lpL/7wX6ujO/9qA3doZ/2sQ9ivE/7kQ7bvD/5j D7naQ/5zC6kmR/8wX8xtB/3lY7ypL/6gH5qtP/5jD7 naQ/62O2H9kE40uAjIfk/aoymbND/tLNs0v/a0XnMoo5fdeKQ61eMSkDjy7HxiCfNzR4yjS/0cK7gcA/ 8iW1xoA/4eC8ncX/7lS3zrR/4yQ5cfR/8cZ3tvK/9kE7teF/9vZ1fzQ/7aX8jdD/3eR3ngF/2yS7nyU/ 7gQ3agU/2yD5jcT/8fE3ebD/6xM6puW/7tT1pqF/5j D7naQ/9jY7ceN/2gV4qcS/6qM8fhV/3aH9izV/4tA5hrG/5lX5asI/4kH4zbM/8aC5esL/0cZ2bfH/5j D7naQ/6uO2mwK/7jD6wvV/3jK9xgI/1zW0seF/5aA8sfH/5cZ5amO/5jD/KtFwn7UG/I0SReZJiHufOg SvywZ1eoukCxHX2UueQ2FqhwRcTkqCz1t1H9mu4evY 9di3mj93W9PdbWlA9Z12Z4OS4p94F2DmvYcN3Z02Q4AT4d51Y5YsaXbV9T19T6ZE0q91V9DelCgX4u32 X3CN2l52N8JxgWmF9k25M2QI1o82T6QgwcoM3N8rR3JXRoU0C4V4gyvZ7W3uY4ESTqO2Z1ENYBle/Q9g moq8H7kOQxvF5a4VzuC7s5PswA7j5Z2xU8O4O3kq2E hG2nw7EeY2tu9Kyagfk8KndnTY4DjpjY87GcgwA3kQSkoO0t8LvrK3o0GunB9b7R7yilz8M3HJ6I6LYU bc/W2qhvu3W5RL3M5KJBgo/A8appl6I3JH7B8LQjpm/J7kogn6U0KL2R1mQane/R0zqor6N7DO9Z3zEk bc/F9vdxy9Z9DXt1SSyuv7T8FbYZ0xoVU2P2kXNXRw dZFAKvhZ7F8rmTbtDpr+nCagunvE3P+4z1c6z3tYVWUlzldQ1I+3t3g7j0iMKlji2UmxwPC3SjrwvI3A stQcSGD7PIWTMQhuEjDUavMvqWETgcMZdDvTXZbmcrPhXUaTZNAFMvbEwTMpsCOfbXBSmWwmxgoquhKs JJbSrllVPH3JlmdfTVn7NNyFLLdtWgQHeyRuuJZ5ur OffXdqODf1oQMfHXtINkPXBbdXjUYgmTC1sNZRjVqxmmtzbqNekAsIkipDuE1U5nDlxQa0RFjKNF2tWr yVohOtwZXHhoMlaAe18Bkc62lFAn9Lvl6F5+MOISÉS/6wFxlf6WKbXwo3v3amTsw0+4CGW2VCsndC0A4YzF [file] PGMlVsmxPx1pkOZ4ZMJyEvyLHk3Cp5SzeeU3zlWqFuV0DsP2RnQqXS5H ID Date Data Source [id number] 02/04/2020 12:06:53 PM EDT [facility] CorporationPAT[facility] NT INFORMATIONPatient MRN Name Date of Age Gend*PT [id number] Nick Trujillo 1990 29 years M OPPT Location Admission Date/Time Visit ID Attending Provider --- --- --- Robert Tamayo MD([id number]) EPI ID [facility] Admitting Provider [id number] ---OUTPATIENT / OBSERVATIONAL SURGICAL OR INVASIVE PROCEDUREName: [...] 2 (two) times a dayHistorical Provider, Umeclidinium [place] (INCRUSE ELLIPTA) 62.5 MCG/INH AEPB Inhale 1 [...] thyromegaly. No carotid bruits.MENTAL / NEUROLOGICAL STATUS: [id number]: Clear to auscultation. No wheezes, rhonchi or [...] parts of this document, were dictated using Cozy software. A reasonable attempt at proofreading has beenmade to minimize errors. Please call with any questions or corrections.* Name Value Range Interpretation Code Description Data Giovana rce(s) Supporting Document(s) ID Date Data Source [id number] 02/04/2020 05:52:41 PM EDT [facility] Name Value Range Interpretation Code Description [facility] Supporting Document(s) SODIUM 140 mmol/L (136-145) [facility] POTASSIUM 4.0 mmol/L (3.6-5.2) [facility] CHLORIDE 106 mmol/L (100-108) [facility] CO2 25 mmol/L (22-31) [facility] ANION GAP 9 mmol/L (7-16) [facility] UREA NITROGEN 13 mg/dL (7-24) [facility] CREATININE 1.08 mg/dL (0.80-1.30) [facility] BUN/CREAT RATIO 12.0 RATIO (10.0-20.0) [facility] GLUCOSE 100 mg/dL (70-99) H [facility] CALCIUM 9.2 mg/dL (8.4-10.2) [facility] GFR >60 ml/min/1.73m2 (>59) [facility] GFR ( AMER) >60 ml/min/1.73m2 (>59) [facility] GFR INTERPRETATION [facility] --NORMAL KIDNEY FUNCTION OR MILD DISEASE - GFR >OR= 60CHRONIC KIDNEY DISEASE - GFR 15 - 59RENAL FAILURE - GFR <15 Est. GFR calculation based on the MDRDstudy equation, which assumes a steadystate for creatinine. Est. GFR should notbe used for medication dosing. ID Date Data Source [id number] 02/04/2020 05:35:33 PM EDT [facility] Name Value Range Interpretation Code Description Data Giovana rce(s) Supporting Document(s) WBC 9.2 10*3/uL (4.1-11.0) [facility] RBC 5.75 10*6/uL (4.60-6.10) [facility] HGB 16.6 g/dL (13.5-18.0) [facility] HCT 51.0 % (41.0-53.0) [facility] MCV 88.8 fL (80.0-95.0) [facility] MCH 28.8 pg (27.0-32.0) [facility] MCHC 32.5 g/dL (32.0-36.0) [facility] RDW 14.8 % (10.5-14.5) H [facility] PLT 233 10*3/uL (150-450) [facility] MPV 8.4 fL (7.1-10.7) [facility] ID Date Data Source [id number] 02/04/2020 09:45:00 AM EDT [facility] Name Value Range Interpretation Code Description Data Giovana rce(s) Supporting Document(s) SARS coronavirus 2 RNA [facility] This lab was ordered by [facility] and reported by [facility]. ID Date Data Source [id number] 02/05/2020 07:07:45 PM EDT [facility] Name Value Range Interpretation Code Description Data Giovana rce(s) Supporting Document(s) SARS-COV-2 TYRON [facility] Not DetectedReference range: Not Detecte d Testing was performed using the hailey(R) SARS-CoV-2 test. This test was developed and its performance characteristics determined by [facility]. This test has not been FDA cleared [...] detected) result in this assay. Performed At: [facility] [id number] Job Henson MD Ph:[phone] ID Date Data Source [id number] 01/31/2020 01:46:00 PM EDT [facility] A BD[facility] WO IV CONTRASTCLINICAL [...] rce(s) Supporting Document(s) ID Date Data Source [id number] 01/27/2020 11:08:00 AM EDT [facility] 1 OrderSheet [facility] [address] [place] [address] Phone #: ext- [phone] 01/27/2020 11:08 Patient: [...] 12:29 Milagros Hayes MD; Bhanu RNLipase STAT 11:01/27/2020 11:15 Milagros Valdez MD; Bhanu RNDIAGNOSTIC STUDY ORDERSOrder Description Priority Entered Acknowledged InitialedCT Abd PEL W/ IV STAT 11:01/27/2020 11:15 [facility] Only Milagros Morse MD; Bhanu ESPINOZA(Oxygen?(No))(IV?(Yes)) NOTES: [...] rce(s) Supporting Document(s) ID Date Data Source [id number] 01/27/2020 11:08:00 AM EDT [facility] 1 Medication Reconciliation Report [facility] [address] [place] [address] Phone #: ext- [phone] 01/27/2020 11:08 Patient: [...] ODT Oral, prn 2 Medication Reconciliation Report [facility] [address] [place] [address] Phone #: ext [phone] 01/27/2020 11:08 Patient: NICK TRUJILLO Sex: M : 1990 Age: 29yThe source(s) of the original Home Medication information:Not obtained.The following Medications were given to the patient in the Emergency Department:None.The following Medications were prescribed to the patient:None. Name Value Range Interpretation Code Description Data Giovana e(s) Supporting Document(s) ID Date Data Source [id number] 01/27/2020 11:08:00 AM EDT [place] [address] Medication Administration Record [facility] [address] [place] [address] Phone #: ext- [phone] 01/27/2020 11:08 Patient: NICK TRUJLILO Sex: M : 1990 Age: 29yWeight: 181.4 kgHeight/Length: 71 inBMI: 55.8ALLERGIES: Dilantin, Naproxsyn, Tylenol with codeinDate/Time Medication Administered Medication Ordered Name Value Range Interpretation Code Description Data Giovana rce(s) Supporting Document(s) ID Date Data Source [id number] 01/27/2020 11:08:00 AM EDT [facility] 1 General Instructions [facility] [address] [place] [address] Phone #: ext- [phone] 01/27/2020 11:08 [id number] Sex: M : 1990 Age: 29yChronic abdominal [...] instructions verbalized by patient. 2 General Instructions [facility] [address] [place] [address], [place] [address] Phone #: ext [phone] 01/27/2020 11:08 [id number] Sex: M : 1990 Age: 29y ADDITIONAL [...] or constipation Chronic cough 3 General Instructions [facility] [address] [place] [address] Phone #: ext- [phone] 01/27/2020 11:08 Patient: [...] be pushed back in. 4 General Instructions [facility] [address] [place] [address] Phone #: [phone] aut- [phone] 01/27/2020 11:08 Patient: NICK TRUJILLO Sex: M [...] to the backCall 911 5 General Instructions [facility] [address] [place] [address] Phone #: ext- [phone] 01/27/2020 11:08 Patient: NICK TRUJILLO Sex: M : 1990 Age: 29yCall 911 if any of these occur: Severe pain, redness, or tenderness in the area near the hernia Pain worsens quickly and doesn't get better Inability to have a bowel movement or pass gas Fever of 100.4F (38C) or higher, or as directed by your healthcare provider [id number] [employer]. [address] [place] [address]. All rights reserved. This information is not intended as asubstitute for professional medical care. Always follow your healthcare professional's instructions. You have been given the following additional information: Hernia (Adult) No strenuous activity.(Electronically signed by Milagros Morse MD 01/28/2020 00:50) Name Value Range Interpretation Code Description Data Giovana rce(s) Supporting Document(s) ID Date Data Source [id number] 01/27/2020 11:08:00 AM EDT [facility] 1 Clinical Report - Nurses [facility] [address] [place] [address] Phone #: sso- [phone] 01/27/2020 11:08 Patient: NICK TRUJILLO Sex: M [...] or confirmed signs of infection present. --11:147 [facility]:10 01/27/20. BP: 112/77. MAP: 88. HR: [...] Oral, daily. Zofran ODT Oral, as needed. --11:12 01/27/20 KishaoctoberGaby. Keppra Oral. --11:01/27/20OctoberGaby.AllergiesDilantin.Naproxsyn.Tylenol with codein. --11:01/27/20 KishaoctoberCatalino 2 Clinical Report - Nurses [facility] Emergency Department [address] [place] [address] Phone #: [phone]- [phone] 01/27/2020 11:08 Patient: NICK TRUJILLO Sex: M : 1990 Age: 29y PROBLEMS: Renal Colic. Asthma. Hematuria. Seizure. --11:13 01/27/20 Suha AlyshaGaby. ADDITIONAL SURGERIES: Hernia Repair. Umbilical Hernia Repair. [...] No skin integrity risk identified. --11:14 01/27/20 Alysah Borden R.N. Interventions To treatment room. --11:01/27/20 Alysha Borden R.N.PHYSICAL [id number] 01/27/20. To room via stretcher.GENERAL / NEURO / PSYCH: Alert. Oriented X 4. Appears in no acute distress. Appears in pain.RESPIRATORY: Respirations not labored. Breath sounds within normal limits. 3 Clinical Report - Nurses [facility] Emergency Department [address] [place] [address] Phone #: ext- [phone] 01/27/2020 11:08 Patient: [...] evaluation- ED physician and PA notified. --11:14 01/27/20Alysha Borden R.N. 11:16 01/27/20. Call light placed in reach. --11:16 01/27/20 Phillip Drummond RN Checked patient name and birthdate. Blood samples drawn from the left antecubital space by tech. ([id number]). --11:52 01/27/20 Phillip Drummond RN 11:43 01/27/2020 Two (2) unsuccessful IV access attempts including the left forearm. --11:53 01/27/20 Phillip Drummond RN 11:56 01/27/2020 Site #1 started via IV in the right antecubital space with an 20g angiocath, with aseptic technique and good blood return; one attempt. Saline lock flushed with 10 mL saline. --11:56 01/27/20 Suha Alysha, R.N. Patient transported to MD by wheelchair with product technician. ([id number]). --12:01 01/27/20 Phillip Drummond RN Checked patient name and birthdate: patient confirmed. Clean catch urine collected; sample sent to lab for urinalys is. Specimen labeled in the presence of the patient ([id number]). Patient returned from CT by wheelchair with product technician. ([id number]). --12:29 01/27/20 Phillip Drummond RN 11:40 01/27/20. [...] Patient verbalized understanding. Written instructions provided in Moldovan. The patient was discharged home and unaccompanied at time of discharge. He left ambulatory and via private vehicle. Driving (unknown). --13:30 01/27/20 Jennifer Russell R.N. 13:28 01/27/20. BP: 106/46. MAP: 66. HR: 83. RR: 20. O2 saturation: 96% on room air. Temp: 98.2 F 4 Clinical Report - Nurses [facility] Emergency Department [address] [place] [address] Phone #: ext- [phone] 01/27/2020 11:08 Patient: [...] rce(s) Supporting Document(s) ID Date Data Source [id number] 01/27/2020 11:08:00 AM EDT [facility] 1 Clinical Report - Physicians/Mid Levels [facility] Emergency Department [address] [place] [address] Phone #: ext- [phone] 01/27/2020 11:08 Patient: [...] Inhalation, daily. 2 Clinical Report - Physicians/Mid [facility] Emergency Department [address] [place] [address] Phone #: ext- [phone] 01/27/2020 11:08 [id number] Sex: [facility] : 1990 Age: 29y Lisinopril-hydroCHLOROthiazide [...] EKG 3 Clinical Report - Physicians/Mid Levels [facility] Emergency Department [address] [place] [address] Phone #: ext- [phone] 01/27/2020 11:08 Patient: [...] mL/min 4 Clinical Report - Physicians/Mid Levels [facility] Emergency Department [address] [place], [place] [address] Phone #: ext- [phone] 01/27/2020 11:08 Patient: NICK TRUJILLO Sex: M : 1990 Age: 29y Male GFR Interprentation 20-49 yrs >60 mL/min Ijttdx24-49 yrs >56 mL/min Normal 60-69 yrs >49 mL/min Normal 70- 79yrs>42 mL/min Normal 80 and above >35 mL/min Normal Female GFRInterpretation 20-39 yrs >60 mL/min Normal 40-49 yrs >58 mL/minNormal 50-59 yrs >51 mL/min Normal 60-69 yrs >45 mL/min Hrulei72-84 yrs >39 mL/min Normal 80 and above >32 mL/min NormalLactic Acid: (KAVITA: 01/27/2020 11:27) ( [facility] 01/27/2020 12:10) Final results Test Result Flag [...] CT ABD //T// PELVIS W/ IV ONLY [facility] [address] [place] [address] PHONE: [phone] FAX: [phone] Name .................. : GAVIOTA Madison Acct Number.................. : [id number] ROOM. ................. : TR-07 MR Number ................... : [id number] Stay type ............. : E/R Discharge Date......... ... : Admit Date ......... : 01/27/20 Admit Phys .................... : COONEYNORM Date of ....... : 1990 Family Phys ................... : Vigo HARD Phone .................. : [phone] Age ................................ : 29 Film# .................. .:[id number] Sex ................................. : M Unsigned transcriptions are preliminary reports and do not represent a medical or legal document CT ABD Reason(s): Abdominal Pain 5 Clinical Report - Physicians/Mid Levels [facility] Emergency Department [address] [place] [address] Phone #: ext- [phone] 01/27/2020 11:08 Patient: NICK TRUJILLO Sex: M [...] 370Method of administration: Intravenous [address] [place], [place] [address]PHONE: [phone] FAX: [phone] .................. : GAVIOTA Madison Acct Number.................. : [id number]. ................. : TR-07 MR Number ................... : [id number] type ............. : E/R Discharge Date......... ... :Admit Date ......... : 01/27/20 Admit Phys .................... : COONEYNORMDate of ....... : 1990 Family Phys ................... : HESTER HARDPhone .................. : [phone] Age ................................ : 29Film# .................. .:[id number] Sex ................................. : MUnsigned transcriptions are preliminary reports and do not represent a medical or legal document CT ABD Reason(s): Abdominal PainExamination dictated by CLYDE Gallego. Examination was reviewed with Cortez Rice MD, radiologist at the time of this dictation. Electronically Reviewed and Signed ByFARHAD LEONE GMM 6 Clinical Report - Physicians/Mid Levels [facility] Emergency Department [address] [place] [address] Phone #: ext- [phone] 01/27/2020 11:08 Patient: [...] MEDICATIONS: 7 Clinical Report - Physicians/Mid Levels [facility] Emergency Department [address] [place] [address] Phone #: ext- [phone] 01/27/2020 11:08 Patient: NICK TRUJILLO Sex: M [...] rce(s) Supporting Document(s) ID Date Data Source [id number] 01/27/2020 01:49:00 [place] [address] PHONE: [phone] FAX: [phone] Name .................. : GAVIOTA Madison Acct Number.................. : [id number] ROOM. ................. : TR-07 MR Number ................... : [id number] Stay type ............. : E/R Discharge Date......... ... : Admit Date ......... : 09/16 Admit Phys .................... : COONEYNORM Date of ....... : 1990 Family Phys ................... : HESTER HARD Phone .................. : [phone] Age ................................ : 29 Film# .................. .:[id number] Sex ................................. : M Unsigned transcriptions are preliminary reports and do not represent a medical or legal document CT ABD & PELVIS W/ IV ONLY [id number] COMPLETE:01/27/20 12:41 [facility] [id number] Reason(s): Abdominal Pain CT SCAN OF THE [...] of administration: Intravenous Page 1 of 2 [facility] [address] [place] [address] PHONE: [phone] FAX: [phone] Name .................. : GAVIOTA Madison Acct Number.................. : [id number] ROOM. ................. : TR-07 Number ................... : [id number] Stay type ............. : E/R Discharge Date......... ... : Admit Date ......... : 01/27/20 Admit Phys .................... : COONEYNORM Date of ....... : 1990 Family Phys ................... : HESTER HARD Phone .................. : [phone] Age ................................ : 29 Film# .................. .:[id number] Sex ................................. : M Unsigned transcriptions are preliminary reports and do not represent a medical or legal document CT ABD & PELVIS W/ IV ONLY [id number] COMPLETE:01/27/20 12:41 [facility] [id number] Reason(s): Abdominal Pain Examination dictated by CLYDE Gallego. Examination was reviewed with Cortez Sinha MD, radiologist at the time of this dictation. Electronically Reviewed and Signed By CORTEZ SINHA MD , 01/27/20 13:49, [facility] Transcribe Initials: SSR, Transcribe Date: 01/27/20 12:55, Dictation Date: Copy for: 010 EMERGENCY SRV Copy for: EMERGENCY DEPT via modem Copy for: 710 MED REC Page 2 of 2 Name Value Range Interpretation Code Description Data Giovana rce(s) Supporting Document(s) ID Date Data Source [id number] 01/27/2020 12:10:00 PM EDT [facility] ([facility]) Name Value Range Interpretation Code Description Data Giovana rce(s) Supporting Document(s) Urinalysis Laboratory test result [facility] ([facility]) SOURCE: Clean Catch Source Laboratory test result [facility] ([facility]) SOURCE: Clean Catch Color Laboratory test result [facility] ([facility]) SOURCE: Clean Catch Spec Colerain 1.005 1.001-1.030 [facility] ([facility]) SOURCE: Clean Catch Clarity Laboratory test result [facility] ([facility]) SOURCE: Clean Catch Bilirubin Laboratory test result [facility] ([facility]) SOURCE: Clean Catch Glucose Laboratory test result [facility] ([facility]) SOURCE: Clean Catch pH 6.5 5-9 [facility] ([facility]) SOURCE: Clean Catch Protein Laboratory test result [facility] ([facility]) SOURCE: Clean Catch Ketone Laboratory test result [facility] ([facility]) SOURCE: Clean Catch Blood Laboratory test result [facility] ([facility]) SOURCE: Clean Catch Nitrite Laboratory test result [facility] ([facility]) SOURCE: Clean Catch Microscopic Laboratory test result M [facility] ([facility]) SOURCE: Clean Catch Leuk Est 25 [facility] ([facility]) SOURCE: Clean Catch Urobilinogen Laboratory test result [facility] ([facility]) SOURCE: Clean Catch WBC Laboratory test result [facility] ([facility]) SOURCE: Clean Catch Epithelial Laboratory test result [facility] ([facility]) SOURCE: Clean Catch ID Date Data Source [id number] 01/27/2020 12:53:00 PM EDT [facility] Name Value Range Interpretation Code Description Data Giovana rce(s) Supporting Document(s) URINALYSIS [facility] giovanna URINALYSIS SOURCE R [facility] COL[facility] yellow NORMAL: Yellow [facility] CLARITY clear NORMAL: Clear [facility] Specific gravity of Urine by Test strip 1.005 1.001 - 1.030 [facility] pH 6.5 5 - 9 [facility] al Glucose [Mass/volume] in Urine by Test strip NORM NORMAL: Negat [facility] Bilirubin.total [Presence] in Urine by Test strip NEG NORMAL: Negative [facility] Ketones [Presence] in Urine by Test strip NEG NORMAL: Negative [facility] Protein [Mass/volume] in Urine by Test strip NEG NORMAL: Negat [facility] Nitrite [Presence] in Urine by Test strip NEG NORMAL: Negative [facility] BLOOD NEG NORMAL: Negative [facility] Leukocyte esterase [Presence] in Urine by Test strip 25 MILAGROS L: Negative [facility] Urobilinogen [Mass/volume] in Urine by Test strip NOR less vanessa n 1.0 mg/dL [facility] MICROSCOPIC See Below [facility] ital WBC 0 - 1 NORMAL: NONE SEEN [facility] EPITHELIAL FEW NORMAL: NONE SEEN [facility] ID Date Data Source [id number] 01/27/2020 11:27:00 AM EDT [facility] ([facility]) Name Value Range Interpretation Code Description Data Giovana rce(s) Supporting Document(s) Lipase [Enzymatic activity/volume] in Serum or Plasma 29 U/L 13-6 0 [facility] ID Date Data Source [id number] 01/27/2020 11:27:00 AM EDT [facility] ([facility]) Name Value Range Interpretation Code Description Data Giovana rce(s) Supporting Document(s) Comprehensive Metabo Laboratory test result [facility] ([facility]) COMPREHENSIVE METABOLIC PANEL Sodium 138 meq/L 134-153 [facility] ([facility]) Chloride 102 meq/L 98-107 [facility] ([facility]) Potassium 3.8 meq/L 3.6-5.0 [facility] ([facility]) Co2 26 meq/L 22-30 [facility] ([facility]) Glucose 102 mg/dL 65-110 [facility] ([facility]) Creatinine 1.0 mg/dL 0.7-1.5 [facility] ([facility]) BUN 10 mg/dL 7-21 [facility] ([facility]) BUN/Creat 10 8-27 [facility] ([facility]) Albumin 4.4 g/dL 3.9-5.0 [facility] ([facility]) Globulin 3.0 GM/DL 2.4-3.2 [facility] ([facility]) Total Protein 7.4 g/dL 6.3-8.2 [facility] ([facility]) Calcium 9.3 mg/dL 8.4-10.2 [facility] ([facility]) Total Bili Laboratory test result 0.2-1.3 [place] [facility] ([facility]) A/G Ratio 1.5 0.8-2.0 [facility] ([facility]) Alkaline Phos 96 U/L 38-126 [facility] ([facility]) SGPT/Alt 27 U/L 7-56 [facility] ([facility]) Sgot/Ast 18 U/L 5-40 [facility] ([facility]) Anion Gap 10.0 mmol/L 8.0-16.0 [facility] ([facility]) Non-Aa GFR Laboratory test result [facility] ([facility]) Age 29 yrs [facility] ([facility]) Afr Amer GFR Laboratory test result [facility] ([facility]) Male GFR Interprentation 20-49 yrs [...] >32 mL/min Normal ID Date Data Source [id number] 01/27/2020 11:27:00 AM EDT [facility] ([facility]) Name Value Range Interpretation Code Description Data Giovana rce(s) Supporting Document(s) CBC W/Automated Diff Laboratory test result [facility] ([facility]) COMPLETE BLOOD COUNT Hemoglobin 15.9 g/dL 14.0-16.0 [facility] ([facility]) RBC 5.61 10^6/uL 4.50-6.30 [facility] ([facility]) WBC 8.8 10^3/uL 4.2-11.0 [facility] ([facility]) Hematocrit 49.5 % 41.0-51.0 [facility] ([facility]) MCV 88.2 fL 80.0-94.0 [facility] ([facility]) MCH 28.3 pg 27.0-34.0 [facility] ([facility]) RDW 13.8 % 11.5-14.8 [facility] ([facility]) Platelets 197 10^3/uL 150-450 [facility] ([facility]) MPV 9.0 fL 7.4-10.4 [facility] ([facility]) MCHC 32.1 g/dL 31.0-36.0 [facility] ([facility]) Lymph 21.5 % 25.0-40.0 Below low normal [facility] ( [facility]) Estill 8.4 % 3.0-8.0 Above high normal [facility] ([facility]) Neut 66.9 % 37.0-80.0 [facility] ([facility]) Eos 2.7 % 0.0-7.0 [facility] ([facility]) Baso 0.2 % 0.0-2.0 [facility] ([facility]) %Ig 0.3 % 0.0-0.0 Above high normal [facility] ([facility]) #Lymph 1.90 10^3/uL 0.60-3.40 [facility] ([facility]) %NRBC 0.0 % 0.0-0.0 [facility] ([facility]) #Neut 5.91 10^3/uL 2.00-6.90 [facility] ([facility]) #Baso 0.02 10^3/uL 0.00-0.20 [facility] ([facility]) #Ig 0.03 10^3/uL 0.00-0.10 [facility] ([facility]) #Eos 0.24 10^3/uL 0.00-0.70 [facility] ([facility]) #Estill 0.74 10^3/uL 0.00-0.90 [facility] ([facility]) RBC Morph Laboratory test result [facility] ([facility]) #NRBC 0.00 10^3/uL 0.00-0.00 [facility] ([facility]) Manual Diff Laboratory test result M [facility] ([facility]) ID Date Data Source [id number] 01/27/2020 11:27:00 AM EDT [facility] ([facility]) Name Value Range Interpretation Code Description Data Giovana rce(s) Supporting Document(s) Lactate [Mass/volume] in Serum or Plasma 1.8 mmol/L 0.2-2.2 [facility] ([facility]) ID Date Data Source [id number] 01/27/2020 12:26:00 PM EDT [facility] Name Value Range Interpretation Code Description Data Giovana rce(s) Supporting Document(s) Lipase [Enzymatic activity/volume] in Serum or Plasma 29 U/L 13 - 60 [facility] ID Date Data Source [id number] 01/27/2020 12:26:00 PM EDT [facility] Name Value Range Interpretation Code Description Data Giovana rce(s) Supporting Document(s) COMPREHENSIVE METABOLIC PANEL [facility] COMPREHENSIVE METABOLIC PANEL Sodium [Moles/volume] in Serum or Plasma 138 mEq/L 134 - 153 [facility] Potassium [Moles/volume] in Serum or Plasma 3.8 mEq/L 3.6 - 5.0 [facility] Chloride [Moles/volume] in Serum or Plasma 102 mEq/L 98 - 107 [facility] Carbon dioxide, total [Moles/volume] in Serum or Plasma 26 MEQ/L 22 - 30 [facility] Glucose [Mass/volume] in Serum or Plasma 102 MG/DL 65 - 110 [facility] BUN 10 MG/DL 7 - 21 [facility] Creatinine [Mass/volume] in Serum or Plasma 1.0 MG/DL 0.7 - 1.5 [facility] BUN/CREAT 10 8 - 27 [facility] Protein [Mass/volume] in Serum or Plasma 7.4 G/DL 6.3 - 8.2 [facility] Albumin [Mass/volume] in Serum or Plasma 4.4 G/DL 3.9 - 5.0 [facility] Globulin [Mass/volume] in Serum by calculation 3.0 GM/DL 2.4 - 3.2 [facility] A/G RATIO 1.5 0.8 - 2.0 [facility] Calcium [Mass/volume] in Serum or Plasma 9.3 MG/DL 8.4 - 10.2 [facility] Bilirubin.total [Mass/volume] in Serum or Plasma <0.7 MG/DL 0.2 - 1.3 [facility] Alkaline phosphatase [Enzymatic activity/volume] in Serum or Plasma 96 U/L 38 - 126 [facility] Aspartate aminotransferase [Enzymatic activity/volume] in Serum or Plasma 18 U/L 5 - 40 [facility] Alanine aminotransferase [Enzymatic activity/volume] in Seru m or Plasma 27 U/L 7 - 56 [facility] Anion gap 3 in Serum or Plasma 10.0 mmol/L 8.0 - 16.0 [facility] AGE 29 yrs [facility] al NON-AA GFR >60 mL/min [facility] ital AFR AMER GFR >60 mL/min [facility] Male GFR In [...] >32 mL/min Normal ID Date Data Source [id number] 01/27/2020 12:13:00 PM EDT [facility] Name Value Range Interpretation Code Description Data Giovana rce(s) Supporting Document(s) CBC W/AUTOMATED DIFF [facility] COMPLETE BLOOD COUNT Leukocytes [#/volume] in Blood by Automated count 8.8 10^3/uL 4.2 - 1 1.0 [facility] Erythrocytes [#/volume] in Blood by Automated count 5.61 10^6/uL 4. 50 - 6.30 [facility] Hemoglobin [Mass/volume] in Blood 15.9 g/dL 14.0 - 16.0 [facility] Hematocrit [Volume Fraction] of Blood by Automated count 49.5 % 4 1.0 - 51.0 [facility] Erythrocyte mean corpuscular volume [Entitic volume] by Auto mated count 88.2 fL 80.0 - 94.0 [facility] Erythrocyte mean corpuscular hemoglobin [Entitic mass] by Automated count 28.3 pg 27.0 - 34.0 [facility] Erythrocyte mean corpuscular hemoglobin concentration [Mass/volume] by Automated count 32.1 g/dL 31.0 - 36.0 [facility] Erythrocyte distribution width [Ratio] by Automated count 13.8 % 11.5 - 14.8 [facility] Platelets [#/volume] in Blood by Automated count 197 10^3/uL 150 - 45 0 [facility] Platelet mean volume [Entitic volume] in Blood by Automated count 9.0 fL 7.4 - 10.4 [facility] Neutrophils/100 leukocytes in Blood by Automated count 66.9 % 37. 0 - 80.0 [facility] Lymphocytes/100 leukocytes in Blood by Manual count 21.5 % 25.0 - 40.0 L [facility] Monocytes/100 leukocytes in Blood by Automated count 8.4 % 3.0 - 8.0 H [facility] Eosinophils/100 leukocytes in Blood by Automated count 2.7 % 0.0 - 7.0 [facility] Basophils/100 leukocytes in Blood by Automated count 0.2 % 0.0 - 2.0 [facility] %IG 0.3 % 0.0 - 0.[address] [facility] al %NRBC 0.0 % 0.0 - 0.0 [facility] al Neutrophils [#/volume] in Blood by Automated count 5.91 10^3/uL 2.00 - 6.90 [facility] Lymphocytes [#/volume] in Blood by Automated count 1.90 10^3/uL 0.60 - 3.40 [facility] Monocytes [#/volume] in Blood by Automated count 0.74 10^3/uL 0.00 - 0.90 [facility] Eosinophils [#/volume] in Blood by Automated count 0.24 10^3/uL 0.00 - 0.70 [facility] Basophils [#/volume] in Blood by Automated count 0.02 10^3/uL 0.00 - 0.20 [facility] #IG 0.03 10^3/uL 0.00 - 0.10 [facility] #NRBC 0.00 10^3/uL 0.00 - 0.00 [facility] MANUAL DIFF NOT INDICATED [facility] RBC MORPH NOT INDICATED [facility] spital ID Date Data Source [id number] 01/27/2020 12:10:00 PM EDT [facility] Name Value Range Interpretation Code Description Data Giovana rce(s) Supporting Document(s) Lactate [Moles/volume] in Serum or Plasma 1.8 MMOL/L 0.2 - 2.2 [facility] ID Date Data Source [id number] 01/17/2020 02:07:00 PM EDT [facility] [address] [place] [address] PHONE: [phone] FAX: [phone] Name .................. : GAVIOTA Madison Acct Number.................. : [id number] ROOM. ................. : Number ................... : [id number] Stay type ............. : O/P Discharge Date......... ... : 01/17/20 Admit Date ......... : 01/17/20 Admit Phys .................... : HESTER HARD Date of ....... : 1990 Family Phys ................... : Vigo HARD Phone .................. : [phone] Age ................................ : 29 Film# .................. .:[id number] Sex ................................. : M Unsigned transcriptions are preliminary reports and do not represent a medical or legal document RIBGabriel MERCER W/[place] [id number] COMPLETE:01/17/20 10:15 [place] [id number] (REASON FOR CHEST: CHEST PAIN LEFT RIB [...] 01/17/20 11:35, Dictation Date: Copy for: 710 [facility] REC Page 1 of 1 Name Value Range Interpretation Code Description Data Giovana rce(s) Supporting Document(s) ID Date Data Source [id number] 01/17/2020 01:27:00 PM EDT [facility] [address] [place] [address] PHONE: [phone] FAX: [phone] Name .................. : GAVIOTA Madison Acct Number.................. : [id number] ROOM. ................. : [facility] MR Number ................... : [id number] Stay type ............. : E/R Discharge Date......... ... : 01/13/20 Admit Date ......... : 01/13/20 Admit Phys .................... : COONEYNORM Date of ....... : 1990 Family Phys ................... : HESTER HARD Phone .................. : [phone] Age ................................ : 29 Film# .................. .:[id number] Sex ................................. : M Unsigned transcriptions are preliminary reports and do not represent a medical or legal document CT HEAD W/O CONTRAST [id number] COMPLETE:01/13/20 17:10 ALVAREZ [id number] Reason(s): Headache CT OF THE HEAD WITHOUT [...] rce(s) Supporting Document(s) ID Date Data Source [id number] 01/17/2020 01:26:00 [place] [address] PHONE: [phone] FAX: [phone] Name .................. : GAVIOTA ROMERO Los Acct Number.................. : [id number] ROOM. ................. : TR-02 MR Number ................... : [id number] Stay type ............. : E/R Discharge Date......... ... : 01/13/20 Admit Date ......... : 01/13/20 Admit Phys .................... : COONEYNORM Date of ....... : 1990 Family Phys ................... : Vigo HARD Phone .................. : [phone] Age ................................ : 29 Film# .................. .:[id number] Sex ................................. : M Unsigned transcriptions are preliminary reports and do not represent a medical or legal document CHEST PORTABLE [id number] COMPLETE:01/13/20 14:18 ARS [id number] Reason(s): Shortness of Breath PORTABLE CHEST X-RAY: [...] rce(s) Supporting Document(s) ID Date Data Source [id number] 01/13/2020 01:42:00 PM EDT [facility] 1 OrderSheet [facility] Emergency Department [address] [place], [place] [address] Phone #: ext- [phone] 01/13/2020 13:41 Patient: NICK TRUJILLO Sex: M : 1990 Age: 29yWEIGHT:177.8 kg HEIGHT:71 inches BMI:54.7ALLERGIES: Dilantin, Naproxsyn, Tylenol with codeinCHIEF COMPLAINT: seizureDIAGNOSIS: SeizureLAB ORDERSOrder Description Priority Entered Acknowledged InitialedCBC w Diff STAT 13:56 01/13/2020 14:01 Mini Mcfarland Norma MD; Lacho Zaragoza.TheeCMP STAT 13:56 01/13/2020 14:01 Mini Mcfarland Norma MD; Lacho Zaragoza.Ishmael.Lipase STAT 13:56 01/13/2020 14:01 Mini Mcfarland Norma [...] 01/13/2020 15:47 Bruna,(Oxygen?(No)) Milagros Morse MD; Lacho R.NShay NOTES: seizure Reason for Study: HeadacheMEDICATION/IV/DRIP/FLUID ORDERSOrder Description Priority Entered Acknowledged InitialedGENERAL ORDERSOrder Description Priority Entered Acknowledged Initialed 2 OrderSheet [facility] Emergency Department [address] [place] [address] Phone #: ext- [phone] 01/13/2020 13:41 Patient: NICK TRUJILLO Sex: M : 1990 Age: 29y[Electronically signed by Lacho Mcfarland R.N. (20:08 01/13/2020)][Electronically signed by Milagros Morse MD (22:42 01/15/2020)][Electronically locked by Lacho Mcfarland R.N. (20:08 01/13/2020)] Name Value Range Interpretation Code Description Data Giovana rce(s) Supporting Document(s) ID Date Data Source [id number] 01/13/2020 01:42:00 PM EDT [facility] 1 Medication Reconciliation Report [facility] Emergency Department [address] [place] [address] Phone #: ext- [phone] 01/13/2020 13:41 Patient: [...] ODT Oral, prn 2 Medication Reconciliation Report [facility] Emergency Department [address] [place] [address] Phone #: ext- [phone] 01/13/2020 13:41 Patient: NICK TRUJILLO Sex: M : 1990 Age: 29yThe source(s) of the original Home Medication information:Not obtained.The following Medications were given to the patient in the Emergency Department:None.The following Medications were prescribed to the patient:None. Name Value Range Interpretation Code Description Data [facility] Supporting Document(s) ID Date Data Source [id number] 01/13/2020 01:42:00 PM EDT [facility] 1 Medication Administration Record [facility] Emergency Department [address] [place] [address] Phone #: ext- [phone] 01/13/2020 13:41 Patient: NICK TRUJILLO Sex: M : 1990 Age: 29yWeight: 177.8 kgHeight/Length: 71 inBMI: 54.7ALLERGIES: Dilantin, Naproxsyn, Tylenol with codeinDate/Time Medication Administered Medication Ordered Name Value Range Interpretation Code Description Data Giovana rce(s) Supporting Document(s) ID Date Data Source [id number] 01/13/2020 01:42:00 PM EDT [facility] 1 General Instructions [facility] Emergency Department [address] [place] [address] Phone #: ext- [phone] 01/13/2020 13:41 Patient: [...] instructions verbalized by patient. 2 General Instructions [facility] Emergency Department [address] [place] [address] Phone #: ext- [phone] 01/13/2020 13:41 Patient: NICK TRUJILLO Sex: M : 1990 Age: 29yNo driving or operating machinery.(Electronically signed by Milagros Morse MD 01/15/2020 22:42) Name Value Range Interpretation Code Description Data Giovana rce(s) Supporting Document(s) ID Date Data Source [id number] 01/13/2020 01:42:00 PM EDT [facility] 1 Clinical Report - Nurses [facility] Emergency Department [address] [place] [address] Phone #: ext- [phone] 01/13/2020 13:41 Patient: NICK TRUJILLO Sex: M [...] Banda R.N.PROBLEMS:Hematuria.Asthma. 2 Clinical Report - Nurses [facility] Emergency Department [address] [place] [address] Phone #: ext- [phone] 01/13/2020 13:41 Patient: [...] treatment room. --13:52 01/13/20 Enedina Banda R.N.PHYSICAL IQLURQUEOY41:02 01/13/20. To room via stretcher.GENERAL / NEURO / PSYCH: Alert. Oriented X 4. Appears in no acute distress. No apparent seizureactivity. Speech within normal limits. Patient appears well-nourished. 3 Clinical Report - Nurses [facility] Emergency Department [address] [place] [address] Phone #: ext- [phone] 01/13/2020 13:41 Patient: [...] space. Applied bandage. --14:08 01/13/20 Lacho Mcfarland REric Reassurance given. Reassessment acuity: LEVEL 3. Seizure [...] of bed on. --15:44 01/13/20 Lacho Mcfarland RShayNShay 16:22 01/13/20. Patient transported to CT by wheelchair with product technician. --16:22 01/13/20 Lacho Mcfarland R.N. 16:30 01/13/20. Patient returned from CT by stretcher with product technician. --16:30 01/13/20 Lacho Mcfarland R.N. 17:01 [...] or numbness. 4 Clinical Report - Nurses [facility] Emergency Department [address] [place] [address] Phone #: ext- [phone] 01/13/2020 13:41 Patient: [...] Patient verbalized understanding. Written instructions provided in Moldovan. The patient was discharged by the physician. [...] rce(s) Supporting Document(s) ID Date Data Source [id number] 01/13/2020 01:42:00 PM EDT [facility] 1 Clinical Report - Physicians/Mid Levels [facility] Emergency Department [address] [place] [address] Phone #: ext- [phone] 01/13/2020 13:41 Patient: NICK TRUJILLO Sex: M [...] daily. 2 Clinical Report - Physicians/Mid Levels [facility] Emergency Department [address] [place] [address] Phone #: ext- [phone] 01/13/2020 13:41 Patient: [...] Progress 3 Clinical Report - Physicians/Mid Levels [facility] Emergency Department [address] [place] [address] Phone #: ext- [phone] 01/13/2020 13:41 Patient: NICK TRUJILLO Sex: M [...] 56) 4 Clinical Report - Physicians/Mid Levels [facility] Emergency Department [address] [place] [address] Phone #: ext- [phone] 01/13/2020 13:41 Patient: [...] 60) Lactic Acid: (KAVITA: 01/13/2020 14:13) ( [facility] 01/13/2020 14:35) Final results Test Result Flag Units (Reference) LACTIC ACID 1.9 MMOL/L (0.2 - 2.2) Urinalysis: (KAVITA: 01/13/2020 13:56) ( MsgRcvd 01/13/2020 14:06) Final results Test Result Flag [...] Portable 1 View: (KAVITA: 01/13/2020 13:56) ( [facility] 01/13/2020 14:19) In Progress CHEST PORTABLE Reason(s): [...] any 5 Clinical Report - Physicians/Mid Levels [facility] Emergency Department [address] [place] [address] Phone #: ext- [phone] 01/13/2020 13:41 Patient: NICK TRUJILLO [facility]#: [id number] Sex: M : 1990 Age: 29y activities [...] patient. 6 Clinical Report - Physicians/Mid Levels [facility] Emergency Department [address] [place] [address] Phone #: aol- [phone] 01/13/2020 13:41 Patient: NICK TRUJILLO Sex: M : 1990 Age: 29y(Electronically signed by Milagros Morse MD 01/15/2020 22:42) Name Value Range Interpretation Code Description Data Giovana rce(s) Supporting Document(s) ID Date Data Source [id number] 12/31/2019 01:56:00 [place] [address] OPERATIVE SUMMARYNAME: GAVIOTA Madison DATE OF : 1990ATTENDING PHYS: SALVADOR KAMARA MD DATE: 12/31/19 MR#: [id number] PROCEDURE: 12/31/2019PRE-OPERATIVE DIAGNOSIS:Microscopic hematuria.POST-OPERATIVE DIAGNOSIS:Microscopic hematuria.PROCEDURE PERFORMED:Flexible cy stoscopy.ATTENDING SURGEON: Dr. Salvador Kamara.PHYSICIAN PORTABLE TRACKMAN: CLYDE Farias.ANESTHESIA: Local.ESTIMATED BLOOD LOSS: Minimal.COMPLICATIONS: None.DRAINS: [...] urethra. No dense or long strictures [address] [place] [id number] OPERATIVE SUMMARYNAME: GAVIOTA Madison DATE OF : 1990ATTENDING PHYS: SALVADOR KAMARA MD DATE: 12/31/19 MR#: [id number] noted. The rest of the cystoscopy was [...] rce(s) Supporting Document(s) ID Date Data Source [id number] 01/13/2020 02:58:00 PM EDT [facility] ([facility]) Name Value Range Interpretation Code Description Data Giovana rce(s) Supporting Document(s) Topiramate [Mass/volume] in Serum or Plasma 8.7 ug/mL 2.0-25.0 [facility] ([facility]) This test was developed and its performa nce characteristics determined by [facility]. It has not been cleared or approved by the Food and Drug Administration. Detection Limit = 1.0 ID Date Data Source [id number] 01/17/2020 08:03:00 PM EDT [facility] Name Value Range Interpretation Code Description Data Giovana rce(s) Supporting Document(s) Topiramate [Mass/volume] in Serum or Plasma 8.7 ug/mL 2.0-25.0 [facility] This test was developed and its performa nce characteristicsdetermined by [facility]. It has not been cleared or approvedby the Food and Drug Administration. Detection Limit = 1.0 ID Date Data Source [id number] 01/13/2020 02:13:00 PM EDT [facility] ([facility]) Name Value Range Interpretation Code Description Data Giovana rce(s) Supporting Document(s) CBC W/Automated Diff Laboratory test result [facility] ([facility]) COMPLETE BLOOD COUNT WBC 8.6 10^3/uL 4.2-11.0 [facility] ([facility]) RBC 5.69 10^6/uL 4.50-6.30 [facility] ([facility]) Hemoglobin 16.2 g/dL 14.0-16.0 Above high normal [facility] ([facility]) Hematocrit 50.7 % 41.0-51.0 [facility] ([facility]) MCH 28.5 pg 27.0-34.0 [facility] ([facility]) MCV 89.1 fL 80.0-94.0 [facility] ([facility]) RDW 13.7 % 11.5-14.8 [facility] ([facility]) MCHC 32.0 g/dL 31.0-36.0 [facility] ([facility]) Platelets 212 10^3/uL 150-450 [facility] ([facility]) MPV 9.0 fL 7.4-10.4 [facility] ([facility]) Neut 68.4 % 37.0-80.0 [facility] ([facility]) Lymph 20.7 % 25.0-40.0 Below low normal [facility] ( [facility]) Estill 7.7 % 3.0-8.0 [facility] ([facility]) Baso 0.1 % 0.0-2.0 [facility] ([facility]) Eos 2.9 % 0.0-7.0 [facility] ([facility]) %Ig 0.2 % 0.0-0.0 Above high normal [facility] ([facility]) #Neut 5.84 10^3/uL 2.00-6.90 [facility] ([facility]) %NRBC 0.0 % 0.0-0.0 [facility] ([facility]) #Lymph 1.77 10^3/uL 0.60-3.40 [facility] ([facility]) #Baso 0.01 10^3/uL 0.00-0.20 [facility] ([facility]) #Estill 0.66 10^3/uL 0.00-0.90 [facility] ([facility]) #Eos 0.25 10^3/uL 0.00-0.70 [facility] ([facility]) #Ig 0.02 10^3/uL 0.00-0.10 [facility] ([facility]) RBC Morph Laboratory test result [facility] ([facility]) #NRBC 0.00 10^3/uL 0.00-0.00 [facility] ([facility]) Manual Diff Laboratory test result M [facility] ([facility]) ID Date Data Source [id number] 01/13/2020 02:13:00 PM EDT [facility] ([facility]) Name Value Range Interpretation Code Description Data Giovana rce(s) Supporting Document(s) Lipase [Enzymatic activity/volume] in Serum or Plasma 32 U/L 13-6 0 [facility] ([facility]) Lactate [Mass/volume] in Serum or Plasma 1.9 mmol/L 0.2-2.2 [facility] ([facility]) ID Date Data Source [id number] 01/13/2020 02:13:00 PM EDT [facility] ([facility]) Name Value Range Interpretation Code Description Data Giovana rce(s) Supporting Document(s) Comprehensive Metabo Laboratory test result [facility] ([facility]) COMPREHENSIVE METABOLIC PANEL Sodium 143 meq/L 134-153 [facility] ([facility]) Co2 24 meq/L 22-30 [facility] ([facility]) Chloride 108 meq/L 98-107 Above high normal [facility] ([facility]) Potassium 4.0 meq/L 3.6-5.0 [facility] ([facility]) Creatinine 0.9 mg/dL 0.7-1.5 [facility] ([facility]) BUN 12 mg/dL 7-21 [facility] ([facility]) Glucose 141 mg/dL 65-110 Above high normal [facility] ([facility]) Total Protein 7.6 g/dL 6.3-8.2 [facility] ([facility]) Albumin 4.4 g/dL 3.9-5.0 [facility] ([facility]) BUN/Creat 13 8-27 [facility] ([facility]) Globulin 3.2 GM/DL 2.4-3.2 [facility] ([facility]) Calcium 9.1 mg/dL 8.4-10.2 [facility] ([facility]) A/G Ratio 1.4 0.8-2.0 [facility] ([facility]) Total Bili Laboratory test result 0.2-1.3 [facility] ([facility]) Alkaline Phos 96 U/L 38-126 [facility] ([facility]) Sgot/Ast 20 U/L 5-40 [facility] ([facility]) Age 29 yrs [facility] ([facility]) Anion Gap 11.0 mmol/L 8.0-16.0 [facility] ([facility]) SGPT/Alt 29 U/L 7-56 [facility] ([facility]) Non-Aa GFR Laboratory test result [facility] ([facility]) Afr Amer GFR Laboratory test result [facility] ([facility]) Male GFR Interprentation 20-49 yrs [...] >32 mL/min Normal ID Date Data Source [id number] 01/13/2020 02:56:00 PM EDT [facility] Name Value Range Interpretation Code Description Data Giovana rce(s) Supporting Document(s) COMPREHENSIVE METABOLIC PANEL [facility] COMPREHENSIVE METABOLIC PANEL Sodium [Moles/volume] in Serum or Plasma 143 mEq/L 134 - 153 [facility] Potassium [Moles/volume] in Serum or Plasma 4.0 mEq/L 3.6 - 5.0 [facility] Chloride [Moles/volume] in Serum or Plasma 108 mEq/L 98 - 107 H [facility] Carbon dioxide, total [Moles/volume] in Serum or Plasma 24 MEQ/L 22 - 30 [facility] Glucose [Mass/volume] in Serum or Plasma 141 MG/DL 65 - 110 H [facility] BUN 12 MG/DL 7 - 21 [facility] Creatinine [Mass/volume] in Serum or Plasma 0.9 MG/DL 0.7 - 1.5 [facility] BUN/CREAT 13 8 - 27 [facility] Protein [Mass/volume] in Serum or Plasma 7.6 G/DL 6.3 - 8.2 [facility] Albumin [Mass/volume] in Serum or Plasma 4.4 G/DL 3.9 - 5.0 [facility] Globulin [Mass/volume] in Serum by calculation 3.2 GM/DL 2.4 - 3.2 [facility] A/G RATIO 1.4 0.8 - 2.0 [facility] Calcium [Mass/volume] in Serum or Plasma 9.1 MG/DL 8.4 - 10.2 [facility] Bilirubin.total [Mass/volume] in Serum or Plasma <0.7 MG/DL 0.2 - 1.3 [facility] Alkaline phosphatase [Enzymatic activity/volume] in Serum or Plasma 96 U/L 38 - 126 [facility] Aspartate aminotransferase [Enzymatic activity/volume] in Serum or Plasma 20 U/L 5 - 40 [facility] Alanine aminotransferase [Enzymatic activity/volume] in Seru m or Plasma 29 U/L 7 - 56 [facility] Anion gap 3 in Serum or Plasma 11.0 mmol/L 8.0 - 16.0 [facility] AGE 29 yrs [facility] NON-AA GFR >60 mL/min [facility] ital AFR AMER GFR >60 mL/min [facility] sp[facility] Male GFR In [...] >32 mL/min Normal ID Date Data Source [id number] 01/13/2020 02:43:00 PM EDT [facility] Name Value Range Interpretation Code Description Data Giovana rce(s) Supporting Document(s) Lipase [Enzymatic activity/volume] in Serum or Plasma 32 U/L 13 - 60 [facility] ID Date Data Source [id number] 01/13/2020 02:35:00 PM EDT [facility] Name Value Range Interpretation Code Description Data Giovana rce(s) Supporting Document(s) Lactate [Moles/volume] in Serum or Plasma 1.9 MMOL/L 0.2 - 2.2 [facility] ID Date Data Source [id number] 01/13/2020 02:27:00 PM EDT [facility] Name Value Range Interpretation Code Description Data Giovana rce(s) Supporting Document(s) CBC W/AUTOMATED DIFF [facility] COMPLETE BLOOD COUNT Leukocytes [#/volume] in Blood by Automated count 8.6 10^3/uL 4.2 - 1 1.0 [facility] Erythrocytes [#/volume] in Blood by Automated count 5.69 10^6/uL 4. 50 - 6.30 [facility] Hemoglobin [Mass/volume] in Blood 16.2 g/dL 14.0 - 16.0 H [facility] Hematocrit [Volume Fraction] of Blood by Automated count 50.7 % 4 1.0 - 51.0 [facility] Erythrocyte mean corpuscular volume [Entitic volume] by Auto mated count 89.1 fL 80.0 - 94.0 [facility] Erythrocyte mean corpuscular hemoglobin [Entitic mass] by Automated count 28.5 pg 27.0 - 34.0 [facility] Erythrocyte mean corpuscular hemoglobin concentration [Mass/volume] by Automated count 32.0 g/dL 31.0 - 36.0 [facility] Erythrocyte distribution width [Ratio] by Automated count 13.7 % 11.5 - 14.8 [facility] Platelets [#/volume] in Blood by Automated count 212 10^3/uL 150 - 45 0 [facility] Platelet mean volume [Entitic volume] in Blood by Automated count 9.0 fL 7.4 - 10.4 [facility] Neutrophils/100 leukocytes in Blood by Automated count 68.4 % 37. 0 - 80.0 [facility] Lymphocytes/100 leukocytes in Blood by Manual count 20.7 % 25.0 - 40.0 L [facility] Monocytes/100 leukocytes in Blood by Automated count 7.7 % 3.0 - 8.0 [facility] Eosinophils/100 leukocytes in Blood by Automated count 2.9 % 0.0 - 7.0 [facility] Basophils/100 leukocytes in Blood by Automated count 0.1 % 0.0 - 2.0 [facility] %IG 0.2 % 0.0 - 0.[address] [facility] al %NRBC 0.0 % 0.0 - 0.0 [facility] al Neutrophils [#/volume] in Blood by Automated count 5.84 10^3/uL 2.00 - 6.90 [facility] Lymphocytes [#/volume] in Blood by Automated count 1.77 10^3/uL 0.60 - 3.40 [facility] Monocytes [#/volume] in Blood by Automated count 0.66 10^3/uL 0.00 - 0.90 [facility] Eosinophils [#/volume] in Blood by Automated count 0.25 10^3/uL 0.00 - 0.70 [facility] Basophils [#/volume] in Blood by Automated count 0.01 10^3/uL 0.00 - 0.20 [facility] #IG 0.02 10^3/uL 0.00 - 0.10 [facility] ospital #NRBC 0.00 10^3/uL 0.00 - 0.00 [facility] ospital MANUAL DIFF NOT INDICATED [facility] RBC MORPH NOT INDICATED [facility] spital ID Date Data Source [id number] 01/13/2020 01:56:00 PM EDT [facility] ([facility]) Name Value Range Interpretation Code Description Data Giovana rce(s) Supporting Document(s) Urinalysis Laboratory test result [facility] ([facility]) URINALYSIS Source Laboratory test result [facility] ([facility]) SOURCE: Clean Catch Color Laboratory test result [facility] ([facility]) SOURCE: Clean Catch Clarity Laboratory test result [facility] ([facility]) SOURCE: Clean Catch Spec Colerain 1.005 1.001-1.030 [facility] ([facility]) SOURCE: Clean Catch pH 8 5-9 [facility] ([facility]) SOURCE: Clean Catch Bilirubin Laboratory test result [facility] ([facility]) SOURCE: Clean Catch Glucose Laboratory test result [facility] ([facility]) SOURCE: Clean Catch Ketone Laboratory test result [facility] ([facility]) SOURCE: Clean Catch Protein Laboratory test result [facility] ([facility]) SOURCE: Clean Catch Blood Laboratory test result [facility] ([facility]) SOURCE: Clean Catch Nitrite Laboratory test result [facility] ([facility]) SOURCE: Clean Catch Leuk Est Laboratory test result [facility] ([facility]) SOURCE: Clean Catch Urobilinogen Laboratory test result [facility] ([facility]) SOURCE: Clean Catch Microscopic Laboratory test result M [facility] ([facility]) SOURCE: Clean Catch ID Date Data Source [id number] 01/13/2020 02:06:00 PM EDT [facility] Name Value Range Interpretation Code Description Data Giovana rce(s) Supporting Document(s) UR[facility]ALYSIS [facility] [place] gi[facility] URINALYSIS SOURCE R [facility] COLOR yellow NORMAL: Yellow [facility] CLARITY clear NORMAL: Clear [facility] Specific gravity of Urine by Test strip 1.005 1.001 - 1.030 [facility] pH 8 5 - [address] [facility] [place] Glucose [Mass/volume] in Urine by Test strip NORM NORMAL: Negat [facility] Bilirubin.total [Presence] in Urine by Test strip NEG NORMAL: Negative [facility] Ketones [Presence] in Urine by Test strip NEG NORMAL: Negative [facility] Protein [Mass/volume] in Urine by Test strip NEG NORMAL: Negat [facility] Nitrite [Presence] in Urine by Test strip NEG NORMAL: Negative [facility] BLOOD NEG NORMAL: Negative [facility] Leukocyte esterase [Presence] in Urine by Test strip NEG MILAGROS L: Negative [facility] Urobilinogen [Mass/volume] in Urine by Test strip NOR less vanessa n 1.0 mg/dL [facility] MICROSCOPIC Not Indicate [facility] ID Date Data Source [id number] 01/12/2020 01:25:00 PM EDT [facility] ([facility]) Name Value Range Interpretation Code Description Data Giovana rce(s) Supporting Document(s) Ribs Unilat W/PA CXR LT Laboratory test result [facility] ([facility]) ID Date Data Source [id number] 12/28/2019 09:15:00 AM EDT [facility] ([facility]) Name Value Range Interpretation Code Description Data Giovana rce(s) Supporting Document(s) Coronavirus Covid-19 Laboratory test result [facility] ([facility]) This test was developed and its performa nce characteristics determined by [facility]. This test has not been FDA cleared [...] in this assay. ID Date Data Source [id number] 12/28/2019 09:15:00 AM EDT [facility] Name Value Range Interpretation Code Description Data Giovana rce(s) Supporting Document(s) SARS CORONAVIRUS 2 RNA [facility] This lab was ordered by [facility] Haider huerta and reported by [facility]. ID Date Data Source [id number] 12/30/2019 06:32:00 AM EDT [facility] Name Value Range Interpretation Code Description Data Giovana rce(s) Supporting Document(s) SARS-CoV-2, TYRON Not Detected Not Detected [facility] This test was developed and its performa nce characteristics determinedby [facility]. This test has not been FDA cleared [...] in this assay. ID Date Data Source [id number] 11/22/2019 09:49:00 AM EDT [facility] [address] [place] [address] PHONE: [phone] FAX: [phone] Name .................. : GAVIOTA Madison Acct Number.................. : [id number] ROOM. ................. : MR Number ................... : [id number] Stay type ............. : O/P Discharge Date......... ... : 11/19/19 Admit Date ......... : 11/19/19 Admit Phys .................... : HESTER HARD Date of ....... : 1990 Family Phys ................... : HESTER HARD Phone .................. : [phone] Age ................................ : 29 Film# .................. .:[id number] Sex ................................. : M Unsigned transcriptions are preliminary reports and do not represent a medical or legal document SPINE LS COMPLETE [id number] COMPLETE:11/19/19 10:39 [id number] (SPINE PROC REASON: PAIN LUMBAR SPINE X-RAY: [...] Date: 11/19/19 15:31, Dictation Date: Copy for: [address] [place] [address] REC Page 1 of 1 Name Value Range Interpretation Code Description Data Giovana rce(s) Supporting Document(s) ID Date Data Source [id number] 11/22/2019 09:49:00 AM EDT [facility] [address] [place] [address] PHONE: [phone] FAX: [phone] Name .................. : GAVIOTA ROMERO Los Acct Number.................. : [id number] ROOM. ................. : MR Number ................... : [id number] Stay type ............. : O/P Discharge Date......... ... : 11/19/19 Admit Date ......... : 11/19/19 Admit Phys .................... : HESTER HARD Date of ....... : 1990 Family Phys ................... : Vigo HARD Phone .................. : [phone] Age ................................ : 29 Film# .................. .:[id number] Sex ................................. : M Unsigned transcriptions are preliminary reports and do not represent a medical or legal document SPINE THORACIC [id number] COMPLETE:11/19/19 10:39 [id number] (SPINE PROC REASON: PAIN THORACIC SPINE SERIES: [...] Date: 11/19/19 15:30, Dictation Date: Copy for: [address] [place] [address] REC Page 1 of 1 Name Value Range Interpretation Code Description Data Giovana rce(s) Supporting Document(s) ID Date Data Source [id number] 11/18/2019 03:15:00 PM EDT [facility] ([facility]) Name Value Range Interpretation Code Description Data [facility] rce(s) Supporting Document(s) Source Laboratory test result [facility] ([facility]) Is patient fasting? N {SOURCE: Random Void~NURSE COLLECTED? N Is patient fasting? N Urinalysis Laboratory test result [facility] ([facility]) Is patient fasting? N {SOURCE: Random Void~NURSE COLLECTED? N Is patient fasting? N Color Laboratory test result [facility] ([facility]) Is patient fasting? N {SOURCE: Random Void~NURSE COLLECTED? N Is patient fasting? N Clarity Laboratory test result [facility] ([facility]) Is patient fasting? N {SOURCE: Random Void~NURSE COLLECTED? N Is patient fasting? N Glucose Laboratory test result [facility] ([facility]) Is patient fasting? N {SOURCE: Random Void~NURSE COLLECTED? N Is patient fasting? N pH 5 5-9 [facility] ([facility]) Is patient fasting? N {SOURCE: Random Void~NURSE COLLECTED? N Is patient fasting? N Spec Colerain 1.015 1.001-1.030 [facility] ([facility]) Is patient fasting? N {SOURCE: Random Void~NURSE COLLECTED? N Is patient fasting? N Bilirubin Laboratory test result [facility] ([facility]) Is patient fasting? N {SOURCE: Random Void~NURSE COLLECTED? N Is patient fasting? N Protein Laboratory test result [facility] ([facility]) Is patient fasting? N {SOURCE: Random Void~NURSE COLLECTED? N Is patient fasting? N Ketone Laboratory test result [facility] ([facility]) Is patient fasting? N {SOURCE: Random Void~NURSE COLLECTED? N Is patient fasting? N Blood Laboratory test result [facility] ([facility]) Is patient fasting? N {SOURCE: Random Void~NURSE COLLECTED? N Is patient fasting? N Nitrite Laboratory test result [facility] ([facility]) Is patient fasting? N {SOURCE: Random Void~NURSE COLLECTED? N Is patient fasting? N Microscopic Laboratory test result M [facility] ([facility]) Is patient fasting? N {SOURCE: Random Void~NURSE COLLECTED? N Is patient fasting? N Leuk Est Laboratory test result [facility] ([facility]) Is patient fasting? N {SOURCE: Random Void~NURSE COLLECTED? N Is patient fasting? N Urobilinogen Laboratory test result [facility] ([facility]) Is patient fasting? N {SOURCE: Random Void~NURSE COLLECTED? N Is patient fasting? N ID Date Data Source [id number] 11/18/2019 03:15:00 PM EDT [facility] ([facility]) Name Value Range Interpretation Code Description Data Giovana rce(s) Supporting Document(s) Thyrotropin [Units/volume] in Serum or Plasma 1.85 uIU/mL 0.47-5.01 [facility] ([facility]) Is patient fasting? N {SOURCE: Random Void~NURSE COLLECTED? N Is patient fasting? N Thyroxine (T4) free [Mass/volume] in Serum or Plasma 0.72 ng/dL 0.93-1.70 Below low normal [facility] ([facility]) Is patient fasting? N {SOURCE: Random Void~NURSE COLLECTED? N Is patient fasting? N Hemoglobin A1c/Hemoglobin.total in Blood 4.3 % 4.4-6.1 Below low normal [facility] ([facility]) Is patient fasting? N {SOURCE: Random Void~NURSE COLLECTED? N Is patient fasting? N ID Date Data Source [id number] 11/18/2019 03:15:00 PM EDT [facility] ([facility]) Name Value Range Interpretation Code Description Data Giovana rce(s) Supporting Document(s) Cve Panel Laboratory test result [facility] ([facility]) Is patient fasting? N {SOURCE: Random Void~NURSE COLLECTED? N Is patient fasting? N Cholesterol 220 mg/dL 131-200 Above high normal [facility] ([facility]) Is patient fasting? N {SOURCE: Random Void~NURSE COLLECTED? N Is patient fasting? N HDL 46 mg/dL 29-86 [facility] ([facility]) Is patient fasting? N {SOURCE: Random Void~NURSE COLLECTED? N Is patient fasting? N Triglycerides 250 mg/dL 35-160 Above high normal [facility]E NT ([facility]) Is patient fasting? N {SOURCE: Random Void~NURSE COLLECTED? N Is patient fasting? N LDL/HDL 3.46 1.00-3.55 [facility] ([facility]) Is patient fasting? N {SOURCE: Random Void~NURSE COLLECTED? N Is patient fasting? N LDL 159 mg/dL 65-175 [facility] ([facility]) Is patient fasting? N {SOURCE: Random Void~NURSE COLLECTED? N Is patient fasting? N Risk Factor 4.8 3.4-4.9 [facility] ([facility]) Is patient fasting? N {SOURCE: Random Void~NURSE COLLECTED? N Is patient fasting? N ID Date Data Source [id number] 11/18/2019 03:15:00 PM EDT [facility] ([facility]) Name Value Range Interpretation Code Description Data Giovana rce(s) Supporting Document(s) Comprehensive Metabo Laboratory test result [facility] ([facility]) Is patient fasting? N {SOURCE: Random Void~NURSE COLLECTED? N Is patient fasting? N Chloride 104 meq/L 98-107 [facility] ([facility]) Is patient fasting? N {SOURCE: Random Void~NURSE COLLECTED? N Is patient fasting? N Potassium 4.0 meq/L 3.6-5.0 [facility] ([facility]) Is patient fasting? N {SOURCE: Random Void~NURSE COLLECTED? N Is patient fasting? N Sodium 142 meq/L 134-153 [facility] ([facility]) Is patient fasting? N {SOURCE: Random Void~NURSE COLLECTED? N Is patient fasting? N Co2 27 meq/L 22-30 [facility] Is patient fasting? N {SOURCE: Random Void~NURSE COLLECTED? N Is patient fasting? N Glucose 91 mg/dL 65-110 [facility] ([facility]) Is patient fasting? N {SOURCE: Random Void~NURSE COLLECTED? N Is patient fasting? N BUN/Creat 17 8-27 [facility]) Is patient fasting? N {SOURCE: Random Void~NURSE COLLECTED? N Is patient fasting? N BUN 15 mg/dL 7-21 [facility] ([facility]) Is patient fasting? N {SOURCE: Random Void~NURSE COLLECTED? N Is patient fasting? N Creatinine 0.9 mg/dL 0.7-1.5 [facility] ([facility]) Is patient fasting? N {SOURCE: Random Void~NURSE COLLECTED? N Is patient fasting? N Albumin 4.4 g/dL 3.9-5.0 [facility] ([facility]) Is patient fasting? N {SOURCE: Random Void~NURSE COLLECTED? N Is patient fasting? N Globulin 3.2 GM/DL 2.4-3.2 [facility]) Is patient fasting? N {SOURCE: Random Void~NURSE COLLECTED? N Is patient fasting? N Total Protein 7.6 g/dL 6.3-8.2 [facility] ([facility]) Is patient fasting? N {SOURCE: Random Void~NURSE COLLECTED? N Is patient fasting? N Calcium 9.3 mg/dL 8.4-10.2 [facility] ([facility]) Is patient fasting? N {SOURCE: Random Void~NURSE COLLECTED? N Is patient fasting? N A/G Ratio 1.4 0.8-2.0 [facility]) Is patient fasting? N {SOURCE: Random Void~NURSE COLLECTED? N Is patient fasting? N Total Bili Laboratory test result 0.2-1.3 [facility] ([facility]) Is patient fasting? N {SOURCE: Random Void~NURSE COLLECTED? N Is patient fasting? N Alkaline Phos 114 U/L 38-126 [facility] ([facility]) Is patient fasting? N {SOURCE: Random Void~NURSE COLLECTED? N Is patient fasting? N Sgot/Ast 22 U/L 5-40 [facility] ([facility]) Is patient fasting? N {SOURCE: Random Void~NURSE COLLECTED? N Is patient fasting? N Age 29 yrs [facility] ([facility]) Is patient fasting? N {SOURCE: Random Void~NURSE COLLECTED? N Is patient fasting? N SGPT/Alt 34 U/L 7-56 [facility]) Is patient fasting? N {SOURCE: Random Void~NURSE COLLECTED? N Is patient fasting? N Anion Gap 11.0 mmol/L 8.0-16.0 [facility] ([facility]) Is patient fasting? N {SOURCE: Random Void~NURSE COLLECTED? N Is patient fasting? N Afr Amer GFR Laboratory test result [facility] ([facility]) Is patient fasting? N {SOURCE: Random Void~NURSE COLLECTED? N Is patient fasting? N Non-Aa GFR Laboratory test result [facility] ([facility]) Is patient fasting? N {SOURCE: Random Void~NURSE COLLECTED? N Is patient fasting? N ID Date Data Source [id number] 11/18/2019 03:15:00 PM EDT [facility] ([facility]) Name Value Range Interpretation Code Description Data Giovana rce(s) Supporting Document(s) RBC 5.74 10^6/uL 4.50-6.30 [facility] ([facility]) Is patient fasting? N {SOURCE: Random Void~NURSE COLLECTED? N Is patient fasting? N CBC W/Automated Diff Laboratory test result [facility] ([facility]) Is patient fasting? N {SOURCE: Random Void~NURSE COLLECTED? N Is patient fasting? N WBC 9.5 10^3/uL 4.2-11.0 [facility] ([facility]) Is patient fasting? N {SOURCE: Random Void~NURSE COLLECTED? N Is patient fasting? N Hemoglobin 16.5 g/dL 14.0-16.0 Above high normal [facility] ([facility]) Is patient fasting? N {SOURCE: Random Void~NURSE COLLECTED? N Is patient fasting? N MCV 87.5 fL 80.0-94.0 [facility] ([facility]) Is patient fasting? N {SOURCE: Random Void~NURSE COLLECTED? N Is patient fasting? N Hematocrit 50.2 % 41.0-51.0 [facility] ([facility]) Is patient fasting? N {SOURCE: Random Void~NURSE COLLECTED? N Is patient fasting? N RDW 13.7 % 11.5-14.8 [facility] ([facility]) Is patient fasting? N {SOURCE: Random Void~NURSE COLLECTED? N Is patient fasting? N MCHC 32.9 g/dL 31.0-36.0 [facility] ([facility]) Is patient fasting? N {SOURCE: Random Void~NURSE COLLECTED? N Is patient fasting? N MCH 28.7 pg 27.0-34.0 [facility] ([facility]) Is patient fasting? N {SOURCE: Random Void~NURSE COLLECTED? N Is patient fasting? N MPV 9.2 fL 7.4-10.4 [facility] ([facility]) Is patient fasting? N {SOURCE: Random Void~NURSE COLLECTED? N Is patient fasting? N Platelets 202 10^3/uL 150-450 [facility] ([facility]) Is patient fasting? N {SOURCE: Random Void~NURSE COLLECTED? N Is patient fasting? N Neut 67.2 % 37.0-80.0 [facility] ([facility]) Is patient fasting? N {SOURCE: Random Void~NURSE COLLECTED? N Is patient fasting? N Estill 7.2 % 3.0-8.0 [facility] ([facility]) Is patient fasting? N {SOURCE: Random Void~NURSE COLLECTED? N Is patient fasting? N Eos 3.6 % 0.0-7.0 [facility] ([facility]) Is patient fasting? N {SOURCE: Random Void~NURSE COLLECTED? N Is patient fasting? N Lymph 21.5 % 25.0-40.0 Below low normal [facility] ( [facility]) Is patient fasting? N {SOURCE: Random Void~NURSE COLLECTED? N Is patient fasting? N Baso 0.2 % 0.0-2.0 [facility] ([facility]) Is patient fasting? N {SOURCE: Random Void~NURSE COLLECTED? N Is patient fasting? N %NRBC 0.0 % 0.0-0.0 [facility] ([facility]) Is patient fasting? N {SOURCE: Random Void~NURSE COLLECTED? N Is patient fasting? N %Ig 0.3 % 0.0-0.0 Above high normal [facility] ([facility]) Is patient fasting? N {SOURCE: Random Void~NURSE COLLECTED? N Is patient fasting? N #Neut 6.39 10^3/uL 2.00-6.90 [facility] ([facility]) Is patient fasting? N {SOURCE: Random Void~NURSE COLLECTED? N Is patient fasting? N #Lymph 2.04 10^3/uL 0.60-3.40 [facility] ([facility]) Is patient fasting? N {SOURCE: Random Void~NURSE COLLECTED? N Is patient fasting? N #Estill 0.68 10^3/uL 0.00-0.90 [facility] ([facility]) Is patient fasting? N {SOURCE: Random Void~NURSE COLLECTED? N Is patient fasting? N #Baso 0.02 10^3/uL 0.00-0.20 [facility] ([facility]) Is patient fasting? N {SOURCE: Random Void~NURSE COLLECTED? N Is patient fasting? N #Ig 0.03 10^3/uL 0.00-0.10 [facility] ([facility]) Is patient fasting? N {SOURCE: Random Void~NURSE COLLECTED? N Is patient fasting? N #Eos 0.34 10^3/uL 0.00-0.70 [facility] ([facility]) Is patient fasting? N {SOURCE: Random Void~NURSE COLLECTED? N Is patient fasting? N #NRBC 0.00 10^3/uL 0.00-0.00 [facility] ([facility]) Is patient fasting? N {SOURCE: Random Void~NURSE COLLECTED? N Is patient fasting? N Manual Diff Laboratory test result M [facility] ([facility]) Is patient fasting? N {SOURCE: Random Void~NURSE COLLECTED? N Is patient fasting? N RBC Morph Laboratory test result [facility] ([facility]) Is patient fasting? N {SOURCE: Random Void~NURSE COLLECTED? N Is patient fasting? N ID Date Data Source [id number] 11/18/2019 07:45:00 PM EDT [facility] Name Value Range Interpretation Code Description Data Giovana rce(s) Supporting Document(s) C[facility] LIPID PANEL Cholesterol [Mass/volume] in Serum or Plasma 220 MG/DL 131 - 200 H [facility] Deprecated Triglyceride [Mass/volume] in Serum or Plasma 250 MG/DL 3 5 - 160 H [facility] HDL 46 MG/DL 29 - 86 [facility] Cholesterol in LDL/Cholesterol in HDL [Mass Ratio] in Serum or Plasma 159 mg/dL 65 - 175 [facility] Cholesterol.total/Cholesterol in HDL [Mass Ratio] in Serum o r Plasma 4.8 3.4 - 4.9 [facility] LDL/HDL 3.46 1.00 - 3.55 [facility] [place] [facility] CVE RISK CHOL/HDL LDL/HDLMEN: 1/2 AVERAGE 3.43 1.00 AVERAGE 4.97 3.55 2X AVERAGE 9.55 6.25 3X AVERAGE 23.99 7.99WOMEN: 1/2 AVERAGE 3.27 1.47 AVERAGE 4.44 3.22 2X AVERAGE 7.05 5.03 3X AVERAGE 11.04 6.14 ID Date Data Source [id number] 11/18/2019 07:27:00 PM EDT [facility] Name Value Range Interpretation Code Description Data Giovana rce(s) Supporting Document(s) URINALYSIS [facility] [place] gi[place]anna URINALYSIS SOURCE R [facility] [place] COLOR yellow NORMAL: Yellow [facility] CLARITY clear NORMAL: Clear [facility] Specific gravity of Urine by Test strip 1.015 1.001 - 1.030 [facility] pH 5 5 - 9 [facility] Glucose [Mass/volume] in Urine by Test strip NORM NORMAL: Negat [facility] Bilirubin.total [Presence] in Urine by Test strip NEG NORMAL: Negative [facility] Ketones [Presence] in Urine by Test strip NEG NORMAL: Negative [facility] Protein [Mass/volume] in Urine by Test strip NEG NORMAL: Negat [facility] Nitrite [Presence] in Urine by Test strip NEG NORMAL: Negative [facility] BLOOD NEG NORMAL: Negative [facility] Leukocyte esterase [Presence] in Urine by Test strip NEG MILAGROS L: Negative [facility] Urobilinogen [Mass/volume] in Urine by Test strip NOR less vanessa n 1.0 mg/dL [facility] MICROSCOPIC Not Indicate [facility] ID Date Data Source [id number] 11/18/2019 07:44:00 PM EDT [facility] Name Value Range Interpretation Code Description Data Giovana rce(s) Supporting Document(s) Hemoglobin A1c/Hemoglobin.total in Blood 4.3 % 4.4 - 6.1 L [facility] {A1]{HB] ID Date Data Source [id number] 11/18/2019 07:54:00 PM EDT [facility] Name Value Range Interpretation Code Description Data Giovana rce(s) Supporting Document(s) Thyroxine (T4) free index in Serum or Plasma by calculation 0.72 NG/DL 0.93 - 1.70 L [facility] ID Date Data Source [id number] 11/18/2019 07:54:00 PM EDT [facility] Name Value Range Interpretation Code Description Data Giovana rce(s) Supporting Document(s) Thyrotropin [Units/volume] in Serum or Plasma by Detec tion limit <= 0.05 mIU/L 1.85 uIU/mL 0.47 - 5.01 [facility] ID Date Data Source [id number] 11/18/2019 07:45:00 PM EDT [facility] Name Value Range Interpretation Code Description Data Giovana rce(s) Supporting Document(s) COMPREHENSIVE METABOLIC PANEL [facility] COMPREHENSIVE METABOLIC PANEL Sodium [Moles/volume] in Serum or Plasma 142 mEq/L 134 - 153 [facility] Potassium [Moles/volume] in Serum or Plasma 4.0 mEq/L 3.6 - 5.0 [facility] Chloride [Moles/volume] in Serum or Plasma 104 mEq/L 98 - 107 [facility] Carbon dioxide, total [Moles/volume] in Serum or Plasma 27 MEQ/L 22 - 30 [facility] Glucose [Mass/volume] in Serum or Plasma 91 MG/DL 65 - 110 [facility] BUN 15 MG/DL 7 - 21 [facility] Creatinine [Mass/volume] in Serum or Plasma 0.9 MG/DL 0.7 - 1.5 [facility] BUN/CREAT 17 8 - 27 [facility] al Protein [Mass/volume] in Serum or Plasma 7.6 G/DL 6.3 - 8.2 [facility] Albumin [Mass/volume] in Serum or Plasma 4.4 G/DL 3.9 - 5.0 [facility] Globulin [Mass/volume] in Serum by calculation 3.2 GM/DL 2.4 - 3.2 [facility] A/G RATIO 1.4 0.8 - 2.0 [facility] al Calcium [Mass/volume] in Serum or Plasma 9.3 MG/DL 8.4 - 10.2 [facility] Bilirubin.total [Mass/volume] in Serum or Plasma <0.7 MG/DL 0.2 - 1.3 [facility] Alkaline phosphatase [Enzymatic activity/volume] in Serum or Plasma 114 U/L 38 - 126 [facility] Aspartate aminotransferase [Enzymatic activity/volume] in Serum or Plasma 22 U/L 5 - 40 [facility] Alanine aminotransferase [Enzymatic activity/volume] in Seru m or Plasma 34 U/L 7 - 56 [facility] Anion gap 3 in Serum or Plasma 11.0 mmol/L 8.0 - 16.0 [facility] AGE 29 yrs [facility] al NON-AA GFR >60 mL/min [facility] AFR AMER GFR >60 mL/min [facility] Male GFR In [...] >32 mL/min Normal ID Date Data Source [id number] 11/18/2019 07:34:00 PM EDT [facility] Name Value Range Interpretation Code Description Data Giovana rce(s) Supporting Document(s) CBC W/AUTOMATED DIFF [facility] COMPLETE BLOOD COUNT Leukocytes [#/volume] in Blood by Automated count 9.5 10^3/uL 4.2 - 1 1.0 [facility] Erythrocytes [#/volume] in Blood by Automated count 5.74 10^6/uL 4. 50 - 6.30 [facility] Hemoglobin [Mass/volume] in Blood 16.5 g/dL 14.0 - 16.0 H [facility] Hematocrit [Volume Fraction] of Blood by Automated count 50.2 % 4 1.0 - 51.0 [facility] Erythrocyte mean corpuscular volume [Entitic volume] by Auto mated count 87.5 fL 80.0 - 94.0 [facility] Erythrocyte mean corpuscular hemoglobin [Entitic mass] by Automated count 28.7 pg 27.0 - 34.0 [facility] Erythrocyte mean corpuscular hemoglobin concentration [Mass/volume] by Automated count 32.9 g/dL 31.0 - 36.0 [facility] Erythrocyte distribution width [Ratio] by Automated count 13.7 % 11.5 - 14.8 [facility] Platelets [#/volume] in Blood by Automated count 202 10^3/uL 150 - 45 0 [facility] Platelet mean volume [Entitic volume] in Blood by Automated count 9.2 fL 7.4 - 10.4 [facility] Neutrophils/100 leukocytes in Blood by Automated count 67.2 % 37. 0 - 80.0 [facility] Lymphocytes/100 leukocytes in Blood by Manual count 21.5 % 25.0 - 40.0 L [facility] Monocytes/100 leukocytes in Blood by Automated count 7.2 % 3.0 - 8.0 [facility] Eosinophils/100 leukocytes in Blood by Automated count 3.6 % 0.0 - 7.0 [facility] Basophils/100 leukocytes in Blood by Automated count 0.2 % 0.0 - 2.0 [facility] %IG 0.3 % 0.0 - 0.0 H [facility] al %NRBC 0.0 % 0.0 - 0.0 [facility] al Neutrophils [#/volume] in Blood by Automated count 6.39 10^3/uL 2.00 - 6.90 [facility] Lymphocytes [#/volume] in Blood by Automated count 2.04 10^3/uL 0.60 - 3.40 [facility] Monocytes [#/volume] in Blood by Automated count 0.68 10^3/uL 0.00 - 0.90 [facility] Eosinophils [#/volume] in Blood by Automated count 0.34 10^3/uL 0.00 - 0.70 [facility] Basophils [#/volume] in Blood by Automated count 0.02 10^3/uL 0.00 - 0.20 [facility] #IG 0.03 10^3/uL 0.00 - 0.10 [facility] #NRBC 0.00 10^3/uL 0.00 - 0.00 [facility] MANUAL DIFF NOT INDICATED [facility] RBC MORPH NOT INDICATED [facility] ID Date Data Source [id number] 11/18/2019 03:08:00 PM EDT [facility] ([facility]) Name Value Range Interpretation Code Description Data Giovana rce(s) Supporting Document(s) Spine LS Complete <pending> [facility] ([facility]) Spine Thoracic <pending> [facility] ([facility]) ID Date Data Source [id number] 10/25/2019 08:46:00 AM EDT [facility] [address] [place] [address] PHONE: [phone] FAX: [phone] Name .................. : GAVIOTA [place] Acct Number.................. : [id number] ROOM. ................. : TR-02 MR Number ................... : [id number] Stay type ............. : E/R Discharge Date......... ... : 10/21/19 Admit Date ......... : 10/21/19 Admit Phys .................... : KHANH LANTIGUA Date of ....... : 1990 Family Phys ................... : NO PCP Phone .................. : [phone] Age ................................ : 29 Film# .................. .:[id number] Sex ................................. : M Unsigned transcriptions are preliminary reports and do not represent a medical or legal document CT ABD & PELV W/O ORAL W/O IV [id number] COMPLETE:10/21/19 19:36 [facility] [address] Reason(s): gross hematuria x [address] [...] fat-containing inguinal hernias. Page 1 of 2 [facility] [address] [place] [address] PHONE: [phone] FAX: [phone] Name .................. : GAVIOTA ROMERO [place] Acct Number.................. : [id number] ROOM. ................. : TR-02 MR Number ................... : [id number] Stay type ............. : E/R Discharge Date......... ... : 10/21/19 Admit Date ......... : 10/21/19 Admit Phys .................... : KHANH LANTIGUA Date of ....... : 1990 Family Phys ................... : NO PCP Phone .................. : [phone] Age ................................ : 29 Film# .................. .:[id number] Sex ................................. : M Unsigned transcriptions are preliminary reports and do not represent a medical or legal document CT ABD & PELV W/O ORAL W/O IV [id number] COMPLETE:10/21/19 19:36 [facility] [id number] Reason(s): gross hematuria x 3 weeks Evaluation [...] rce(s) Supporting Document(s) ID Date Data Source [id number] 10/21/2019 03:31:00 PM EDT [facility] 1 OrderSheet [facility] Emergency Department [address] [place] [address] Phone #: ext- [phone] 10/21/2019 15:22 Patient: NICK TRUJILLO Sex: M : 1990 Age: 29yWEIGHT:176.4 kg HEIGHT:71 inches BMI:54.3ALLERGIES: Dilantin, Naproxsyn, Tylenol with codeinCHIEF COMPLAINT: dysuriaDIAGNOSIS: Renal colic, Blood in urineLAB ORDERSOrder Description Priority Entered Acknowledged InitialedUrinalysis (Clean STAT 15:30 10/21/2019 15:31 Rehana Crane) Morgan Escudero R.N.CBC w Diff STAT 16:14 10/21/2019 Ack'd: 16:20 16:44 Morgan Crane; Kota Crane R.N. R.N.CMP STAT 16:14 10/21/2019 Ack'd: 16:20 16:44 Moragn Crane; Kota Crane R.N. R.N.DIAGNOSTIC STUDY ORDERSOrder [...] rce(s) Supporting Document(s) ID Date Data Source [id number] 10/21/2019 03:31:00 PM EDT [place] [address] Medication Reconciliation Report [facility] [address] [place] [address] Phone #: ext- [phone] 10/21/2019 15:22 Patient: NICK TURJILLO Sex: M : 1990 Age: 29yWeight: 176.4 [...] Dispense 28capsule. Refills: 0. Substitution permitted.Pharmacy - [id number] [address], [place] [id number]. . -- CLYDE Milton Name Value Range Interpretation Code Description Data Giovana rce(s) Supporting Document(s) ID Date Data Source [id number] 10/21/2019 03:31:00 PM EDT [facility] 1 Medication Administration Record [facility] [address] [place] [address] Phone #: ext [phone] 10/21/2019 15:22 Patient: NICK TRUJILLO Sex: M : 1990 Age: 29yWeight: 176.4 kgHeight/Length: 71 inBMI: 54.3ALLERGIES: Naproxsyn, Tylenol with codein, DilantinDate/Time Medication Administered Medication Ordered Name Value Range Interpretation Code Description Data Giovana rce(s) Supporting Document(s) ID Date Data Source [id number] 10/21/2019 03:31:00 PM EDT [facility] 1 General Instructions [facility] Emergency Department [address] [place] [address] Phone #: ext [phone] 10/21/2019 15:22 Patient: NICK TRUJILLO Sex: M [...] Dispense 28capsule. Refills: 0. Substitution permitted.Pharmacy - [facility] - [address] [facility] ; [place], [place] [phone]. .Follow-up:Follow up with your healthcare provider in [...] INFORMATIONBlood in the Urine 2 General Instructions [facility] [address] [place] [address] Phone #: ext- [phone] 10/21/2019 15:22 Patient: NICK TRUJILLO Sex: M [...] had blood in your 3 General Instructions [facility] [address] [place] [address] Phone #: ext- [phone] 10/21/2019 15:22 Patient: [...] the nose or gums or easy bruising [id number] [employer]. [address] [place] [address], [place] [address]. All rights reserved. This information is not [...] rce(s) Supporting Document(s) ID Date Data Source [id number] 10/21/2019 03:31:00 PM EDT [facility] 1 Clinical Report - Nurses [facility] [address] [place] [address] Phone #: ext- [phone] 10/21/2019 15:22 Patient: [...] 98%. Temp: 99.3 F. Pain level now 210.--15:26 10/21/19 Kota Crane R.N.Weight: 176.4 kg. Height/Length: [...] before today?". 2 Clinical Report - Nurses [facility] [address] [place] [address] Phone #: ext- [phone] 10/21/2019 15:22 Patient: [...] Skin is warm and dry. --15:30 10/21/19 oKta Crane R.N.NURSING PROGRESS NOTESPatient transported to MD by wheelchair with senior health physics technician. --16:41 10/21/19 Kota Crane R.N. 17:01 10/21/19. BP: 127/71. MAP: 89. HR: 104. RR: 18. O2 saturation: 99%. --17:02 10/21/19 [place] [address].DISPOSITION / DISCHARGE 17:38 10/21/19. BP: 125/78. MAP: 93. HR: 98. RR: 18. O2 saturation: 99%. Temp: 98.6 F. --17:38 10/21/19 [place] [address] Condition at departure: unchanged. Discharge instructions provided and reviewed with the patient. Reviewed medication(s). Prescription(s) sent electronically to pharmacy. Patient verbalized understanding. Written instructions provided in Moldovan. The patient was discharged by the physician. He was discharged home. He left ambulatory. Patient driving. --17:41 10/21/19 Kota Crane R.N. 17:41 10/21/19. Pain level now 0/10. --17:41 10/21/19 Kota Crane R.N. 3 Clinical Report - Nurses [facility] [address] [place] [address] Phone #: ext- [phone] 10/21/2019 15:22 Patient: NICK TRUJILLO Sex: M : 1990 Age: 29yLocked/Released at 10/21/2019 17:42 by Kota Crane R.N. Name Value Range Interpretation Code Description Data Giovana rce(s) Supporting Document(s) ID Date Data Source [id number] 10/21/2019 03:31:00 PM EDT [facility] 1 Clinical Report - Physicians/Mid Levels [facility] [address] [place] [address] Phone #: ext- [phone] 10/21/2019 15:22 Patient: [...] allergies. 2 Clinical Report - Physicians/Mid Levels [facility] Department [address] [place] [address] Phone #: ext- [phone] 10/21/2019 15:22 [id number] Sex: [facility] : 1990 Age: 29yPHYSICAL EXAMVital [...] results 3 Clinical Report - Physicians/Mid Levels [facility] [address] [place] [address] Phone #: ext- [phone] 10/21/2019 15:22 Patient: [...] treatment. 4 Clinical Report - Physicians/Mid Levels [facility] [address] [place] [address] Phone #: [phone] nkp- [phone] 10/21/2019 15:22 Patient: NICK RTUJILLO Sex: M : 1990 Age: 29yCLINICAL IMPRESSION [...] capsule. Refills: 0. Substitution permitted. Pharmacy - [facility] - [address] [place], [place] [phone]. . Follow- up: Follow up with your [...] Name Value Range Interpretation Code Description Data [facility] rce(s) Supporting Document(s) ID Date Data Source [id number] 10/21/2019 04:27:00 PM EDT [facility] ([facility]) Name Value Range Interpretation Code Description Data [facility] rce(s) Supporting Document(s) Comprehensive Metabo Laboratory test result [facility] ([facility]) COMPREHENSIVE METABOLIC PANEL Chloride 106 meq/L 98-107 [facility] ([facility]) Potassium 4.0 meq/L 3.6-5.0 [facility] ([facility]) Sodium 144 meq/L 134-153 [facility] ([facility]) Co2 25 meq/L 22-30 [facility] ([facility]) BUN 10 mg/dL 7-21 [facility] ([facility]) Glucose 102 mg/dL 65-110 [facility] ([facility]) Creatinine 0.8 mg/dL 0.7-1.5 [facility] ([facility]) BUN/Creat 13 8-27 [facility] ([facility]) Total Protein 7.7 g/dL 6.3-8.2 [facility] ([facility]) Albumin 4.4 g/dL 3.9-5.0 [facility] ([facility]) Globulin 3.3 GM/DL 2.4-3.2 Above high normal [facility] ([facility]) Calcium 9.1 mg/dL 8.4-10.2 [facility] ([facility]) A/G Ratio 1.3 0.8-2.0 [facility] ([facility]) Total Bili Laboratory test result 0.2-1.3 ME [facility] ([facility]) Alkaline Phos 104 U/L 38-126 [facility] ([facility]) Sgot/Ast 27 U/L 5-40 [facility] ([facility]) Anion Gap 13.0 mmol/L 8.0-16.0 [facility] ([facility]) SGPT/Alt 43 U/L 7-56 [facility] ([facility]) Age 29 yrs [facility] ([facility]) Afr Amer GFR Laboratory test result [facility] ([facility]) Male GFR Interprentation 20-49 yrs [...] mL/min Normal Non-Aa GFR [facility] ID Date Data Source [id number] 10/21/2019 04:27:00 PM EDT [facility] ([facility]) Name Value Range Interpretation Code Description Data Giovana rce(s) Supporting Document(s) CBC W/Automated Diff Laboratory test result [facility] ([facility]) COMPLETE BLOOD COUNT WBC 9.1 10^3/uL 4.2-11.0 [facility] ([facility]) RBC 5.69 10^6/uL 4.50-6.30 [facility] ([facility]) Hemoglobin 16.3 g/dL 14.0-16.0 Above high normal [facility] ([facility]) Hematocrit 50.9 % 41.0-51.0 [facility] ([facility]) MCV 89.5 fL 80.0-94.0 [facility] ([facility]) MCH 28.6 pg 27.0-34.0 [facility] ([facility]) RDW 13.9 % 11.5-14.8 [facility] ([facility]) MCHC 32.0 g/dL 31.0-36.0 [facility] ([facility]) MPV 8.9 fL 7.4-10.4 [facility] ([facility]) Platelets 224 10^3/uL 150-450 [facility] ([facility]) Neut 72.7 % 37.0-80.0 [facility] ([facility]) Lymph 15.4 % 25.0-40.0 Below low normal [facility] ( [facility]) Estill 9.1 % 3.0-8.0 Above high normal [facility] ([facility]) Baso 0.2 % 0.0-2.0 [facility] ([facility]) Eos 2.4 % 0.0-7.0 [facility] ([facility]) %Ig 0.2 % 0.0-0.0 Above high normal [facility] ([facility]) %NRBC 0.0 % 0.0-0.0 [facility] ([facility]) #Neut 6.61 10^3/uL 2.00-6.90 [facility] ([facility]) #Estill 0.83 10^3/uL 0.00-0.90 [facility] ([facility]) #Lymph 1.40 10^3/uL 0.60-3.40 [facility] ([facility]) #Eos 0.22 10^3/uL 0.00-0.70 [facility] ([facility]) #Baso 0.02 10^3/uL 0.00-0.20 [facility] ([facility]) #Ig 0.02 10^3/uL 0.00-0.10 [facility] ([facility]) #NRBC 0.00 10^3/uL 0.00-0.00 [facility] ([facility]) Manual Diff Laboratory test result M [facility] ([facility]) RBC Morph Laboratory test result [facility] ([facility]) ID Date Data Source [id number] 10/21/2019 05:29:00 PM EDT [facility] Name Value Range Interpretation Code Description Data Giovana rce(s) Supporting Document(s) COMPREHENSIVE METABOLIC PANEL [facility] COMPREHENSIVE METABOLIC PANEL Sodium [Moles/volume] in Serum or Plasma 144 mEq/L 134 - 153 [facility] Potassium [Moles/volume] in Serum or Plasma 4.0 mEq/L 3.6 - 5.0 [facility] Chloride [Moles/volume] in Serum or Plasma 106 mEq/L 98 - 107 [facility] Carbon dioxide, total [Moles/volume] in Serum or Plasma 25 MEQ/L 22 - 30 [facility] Glucose [Mass/volume] in Serum or Plasma 102 MG/DL 65 - 110 [facility] BUN 10 MG/DL 7 - 21 [facility] Creatinine [Mass/volume] in Serum or Plasma 0.8 MG/DL 0.7 - 1.5 [facility] BUN/CREAT 13 8 - 27 [facility] Protein [Mass/volume] in Serum or Plasma 7.7 G/DL 6.3 - 8.2 [facility] Albumin [Mass/volume] in Serum or Plasma 4.4 G/DL 3.9 - 5.0 [facility] Globulin [Mass/volume] in Serum by calculation 3.3 GM/DL 2.4 - 3.2 H [facility] A/G RATIO 1.3 0.8 - 2.0 [facility] Calcium [Mass/volume] in Serum or Plasma 9.1 MG/DL 8.4 - 10.2 [facility] Bilirubin.total [Mass/volume] in Serum or Plasma <0.7 MG/DL 0.2 - 1.3 [facility] Alkaline phosphatase [Enzymatic activity/volume] in Serum or Plasma 104 U/L 38 - 126 [facility] Aspartate aminotransferase [Enzymatic activity/volume] in Serum or Plasma 27 U/L 5 - 40 [facility] Alanine aminotransferase [Enzymatic activity/volume] in Seru m or Plasma 43 U/L 7 - 56 [facility] Anion gap 3 in Serum or Plasma 13.0 mmol/L 8.0 - 16.0 [facility]GE 29 [facility] NON-AA GFR >60 mL/min [facility] ital AFR AMER GFR >60 mL/min [facility] sp[facility] Male GFR In [...] >32 mL/min Normal ID Date Data Source [id number] 10/21/2019 04:43:00 PM EDT [facility] Name Value Range Interpretation Code Description Data Giovana rce(s) Supporting Document(s) CBC W/AUTOMATED DIFF [facility] COMPLETE BLOOD COUNT Leukocytes [#/volume] in Blood by Automated count 9.1 10^3/uL 4.2 - 1 1.0 [facility] Erythrocytes [#/volume] in Blood by Automated count 5.69 10^6/uL 4. 50 - 6.30 [facility] Hemoglobin [Mass/volume] in Blood 16.3 g/dL 14.0 - 16.0 H [facility] Hematocrit [Volume Fraction] of Blood by Automated count 50.9 % 4 1.0 - 51.0 [facility] Erythrocyte mean corpuscular volume [Entitic volume] by Auto mated count 89.5 fL 80.0 - 94.0 [facility] Erythrocyte mean corpuscular hemoglobin [Entitic mass] by Automated count 28.6 pg 27.0 - 34.0 [facility] Erythrocyte mean corpuscular hemoglobin concentration [Mass/volume] by Automated count 32.0 g/dL 31.0 - 36.0 [facility] Erythrocyte distribution width [Ratio] by Automated count 13.9 % 11.5 - 14.8 [facility] Platelets [#/volume] in Blood by Automated count 224 10^3/uL 150 - 45 0 [facility] Platelet mean volume [Entitic volume] in Blood by Automated count 8.9 fL 7.4 - 10.4 [facility] Neutrophils/100 leukocytes in Blood by Automated count 72.7 % 37. 0 - 80.0 [facility] Lymphocytes/100 leukocytes in Blood by Manual count 15.4 % 25.0 - 40.0 L [facility] Monocytes/100 leukocytes in Blood by Automated count 9.1 % 3.0 - 8.0 H [facility] Eosinophils/100 leukocytes in Blood by Automated count 2.4 % 0.0 - 7.0 [facility] Basophils/100 leukocytes in Blood by Automated count 0.2 % 0.0 - 2.0 [facility] %IG 0.2 % 0.0 - 0.[address] [facility] %NRBC 0.0 % 0.0 - 0.0 [facility] al Neutrophils [#/volume] in Blood by Automated count 6.61 10^3/uL 2.00 - 6.90 [facility] Lymphocytes [#/volume] in Blood by Automated count 1.40 10^3/uL 0.60 - 3.40 [facility] Monocytes [#/volume] in Blood by Automated count 0.83 10^3/uL 0.00 - 0.90 [facility] Eosinophils [#/volume] in Blood by Automated count 0.22 10^3/uL 0.00 - 0.70 [facility] Basophils [#/volume] in Blood by Automated count 0.02 10^3/uL 0.00 - 0.20 [facility] #IG 0.02 10^3/uL 0.00 - 0.10 [facility] H ospital #NRBC 0.00 10^3/uL 0.00 - 0.00 [facility] ospital MANUAL DIFF NOT INDICATED [facility] RBC MORPH NOT INDICATED [facility] spital ID Date Data Source [id number] 10/21/2019 03:35:00 PM EDT [facility] ([facility]) Name Value Range Interpretation Code Description Data Giovana rce(s) Supporting Document(s) Urinalysis Laboratory test result [facility] ([facility]) SOURCE: Clean Catch Source Laboratory test result [facility] ([facility]) SOURCE: Clean Catch Color Laboratory test result [facility] ([facility]) SOURCE: Clean Catch pH 5 5-9 [facility] ([facility]) SOURCE: Clean Catch Clarity Laboratory test result [facility] ([facility]) SOURCE: Clean Catch Spec Colerain 1.010 1.001-1.030 [facility] ([facility]) SOURCE: Clean Catch Glucose Laboratory test result [facility] ([facility]) SOURCE: Clean Catch Bilirubin Laboratory test result [facility] ([facility]) SOURCE: Clean Catch Ketone Laboratory test result [facility] ([facility]) SOURCE: Clean Catch Protein Laboratory test result [facility] ([facility]) SOURCE: Clean Catch Blood 10 Abnormal (applies to non-numeric res ults) [facility] ([facility]) SOURCE: Clean Catch Nitrite Laboratory test result [facility] ([facility]) SOURCE: Clean Catch Urobilinogen Laboratory test result [facility] ([facility]) SOURCE: Clean Catch Leuk Est Laboratory test result [facility] ([facility]) SOURCE: Clean Catch RBC Laboratory test result [facility] ([facility]) SOURCE: Clean Catch Microscopic Laboratory test result M [facility] ([facility]) SOURCE: Clean Catch Epithelial Laboratory test result [facility] ([facility]) SOURCE: Clean Catch ID Date Data Source [id number] 10/21/2019 04:12:00 PM EDT [facility] Name Value Range Interpretation Code Description Data Giovana rce(s) Supporting Document(s) URINALYSIS [facility] giovanna URINALYSIS SOURCE Clean Catch [facility] COLOR yellow NORMAL: Yellow [facility] CLARITY clear NORMAL: Clear [facility] Specific gravity of Urine by Test strip 1.010 1.001 - 1.030 [facility] pH 5 5 - 9 [facility] al Glucose [Mass/volume] in Urine by Test strip NORM NORMAL: Negat [facility] Bilirubin.total [Presence] in Urine by Test strip NEG NORMAL: Negative [facility] Ketones [Presence] in Urine by Test strip NEG NORMAL: Negative [facility] Protein [Mass/volume] in Urine by Test strip NEG NORMAL: Negat [facility] Nitrite [Presence] in Urine by Test strip NEG NORMAL: Negative [facility] BLOOD 10 NORMAL: Negative A [facility] Leukocyte esterase [Presence] in Urine by Test strip NEG MILAGROS L: Negative [facility] Urobilinogen [Mass/volume] in Urine by Test strip NOR less vanessa n 1.0 mg/dL [facility] MICROSCOPIC See Below [facility] ital Erythrocytes [#/volume] in Urine by Test strip 0 - 1 NORMAL: NON E SEEN [facility] EPITHELIAL FEW NORMAL: NONE SEEN [facility] Hospital ID Date Data Source [id number] 09/14/2019 03:51:00 PM [facility] Patient Name: NICK TRUJILLO : 1990 Sex: M Pt Unit #: [id number] Location:[facility] Provider: Visit Date/Time: 09/14/19 Primary Insurance: [facility] Secondary Insurance: Self Pay Intake Vital Signs [...] arrange this because he is moving to [facility] this month and it may be hard to keep appointments. Here with forms for DSS to get some home health services. He seems to identify the problem with his right foot as the main reason for this. He has been seeing a surgeon in [place] for this and they are apparently recommending [...] of unspecified foot, initial encounter SNOMED Code(s): 092486821 Category: Medical Plan - Kota Anderson MD: Possibly soft tissue but worth doing an X ray to look at possible fractures. Continue conservative treatment. Encouraged him to consider taking Tylenol more often. (2) Low back pain at multiple sites: Status: Acute Code(s): M54.5 - Low back pain SNOMED Code(s): 877172952 Category: Medical Plan - Kota Anderson MD: [...] rce(s) Supporting Document(s) ID Date Data Source [id number] 08/12/2019 02:08:00 PM [facility] Patient Name: NICK TRUJILLO : 1990 Sex: M Pt Unit #: [id number] Location:[facility] Provider: Visit Date/Time: 08/12/19 Primary Insurance: [facility] Secondary Insurance: Self Pay Intake Vital Signs [...] states medicine Dr. 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 Is patient in pain?: Yes [...] offer been met?: Patient reports past refusal [facility] Medical History Acne (Chronic) Acne vulgaris (Acute [...] obesity due to excess calories SNOMED Code(s): 709441092 Category: Medical Electronically Signed By: <Electronically signed by Lance Arenas DO> Date/Time Signed: 08/12/19 1432 Name Value Range Interpretation Code Description Data Giovana rce(s) Supporting Document(s) Procedure Social History Code Duration Value Status Description Data Source(s ) Alcohol intake 06/28/2020 12:00:00 AM EST Current non-d roscoe of alcohol (finding) completed Current non-drinker of alcohol (finding) [facility] Tobacco use and exposure 06/28/2020 12:00:00 AM EST Never used co mpleted Never used [facility] Smoking 06/28/2020 12:00:00 AM EST Never smoker completed Never s [facility] Alcohol intake 06/06/2020 12:00:00 AM EST Current non-d roscoe of alcohol (finding) completed Current non-drinker of alcohol (finding) [facility] Alcohol intake 05/09/2020 12:00:00 AM EDT Current non-d roscoe of alcohol (finding) completed Current non-drinker of alcohol (finding) [facility] Alcohol intake 04/26/2020 12:00:00 AM EDT Current non-d roscoe of alcohol (finding) completed Current non-drinker of alcohol (finding) [facility] Alcohol intake 02/09/2020 12:00:00 AM EDT No completed [facility] Smoking 02/09/2020 12:00:00 AM EDT Never smoker completed Never [facility] Alcohol intake 02/04/2020 12:00:00 AM EDT No completed [facility] Smoking 02/04/2020 12:00:00 AM EDT Never smoker completed Never s [facility] Caffeine Use Details 10/06/2019 12:00:00 AM EDT completed [facility] ([facility]) 10/06/2019 12:00:00 AM EDT Never smoked tobacco comple sheri Never smoked tobacco [facility] ([facility]) Smoking 10/06/2019 12:00:00 AM EDT Never smoker completed Never s moker [facility] ([facility]) 09/14/2019 03:51:40 PM EST Never smoker completed Never s [facility] Smoking 09/14/2019 03:51:00 PM EST Never smoker completed Never s [facility] 08/12/2019 02:22:00 PM EST Never smoker completed Never s [facility] 08/12/2019 02:22:00 PM EST No completed No [facility] 08/12/2019 02:22:00 PM EST No completed [facility] Vital Signs ID Date Data Source UNK Name Value Range Interpretation Code Description Data Source(s) Body height 71 [in_i] 71 [in_i] [facility] ([facility]) 5'11" Diastolic blood pressure 60 mm[Hg] 60 mm[Hg[facility] Systolic blood pressure 120 mm[Hg] 120 mm[Hg] M [facility] ([facility]) Body surface area Derived from formula 2.85 m2 2.85 m2 [facility] ([facility]) Body weight 184.615 kg 184.615 kg [facility] ([facility] [place] body weight 172 [lb_av] 172 [lb_av] [facility] ([facility]) Body mass index (BMI) [Ratio] 56.8 kg/m2 56.8 k g/m2 [facility] ([facility]) Body weight 407.00 [lb_av] 407.00 [lb_av] [facility] ([facility]) Diastolic blood pressure 80 mm[Hg] 80 mm[Hg] eCW1 ([facility]) Systolic blood pressure 116 mm[Hg] 116 mm[Hg] e CW1 ([facility]) Body temperature 96.7 [degF] 96.7 [degF] eCW1 ( [facility]) Respiratory rate 18 /min 18 /min eCW1 ([facility]) Heart rate 112 /min 112 /min eCW1 ([facility]) Body mass index (BMI) [Ratio] 56.62 kg/m2 56.62 kg/m2 W1 ([facility]) Body height 71 [in_i] 71 [in_i] eCW1 ([facility]) Body weight 406 [lb_av] 406 [lb_av] eCW1 ([facility]) Body surface area Derived from formula 2.86 m2 2.86 m2 [facility] ([facility]) Body weight 185.579 kg 185.579 kg [facility] ([facility]) [place] body weight 172 [lb_av] 172 [lb_av] [facility] ([facility]) Body mass index (BMI) [Ratio] 57.1 kg/m2 57.1 k g/m2 [facility] ([facility]) Body weight 409.12 [lb_av] 409.12 [lb_av] [facility] Body height 71 [in_i] 71 [in_i] [facility] ([facility]) 5'11" Diastolic blood pressure 88 mm[Hg] 88 mm[Hg] [facility] ([facility]) Systolic blood pressure 154 mm[Hg] 154 mm[Hg] [facility] ([facility]) Body surface area Derived from formula 2.79 m2 2.79 m2 [facility] ([facility]) Body weight 184.162 kg 184.162 kg [facility] ([facility]) [place] body weight 160 [lb_av] 160 [lb_av] [facility] Body mass index (BMI) [Ratio] 59.9 kg/m2 59.9 k g/m2 [facility] ([facility]) Body weight 406.00 [lb_av] 406.00 [lb_av] [facility] Body height 69 [in_i] 69 [in_i] [facility] ([facility]) 5'9" Body temperature 96.8 [degF] 96.8 [degF] [facility] ([facility]) Oxygen saturation in Arterial blood by Pulse oximetry 99 % 99 % [facility] ([facility]) Heart rate 99 /min 99 /min [facility] ([facility]) Diastolic blood pressure 80 mm[Hg] 80 mm[Hg] [facility] ([facility]) Systolic blood pressure 122 mm[Hg] 122 mm[Hg] [facility] ([facility]) Diastolic blood pressure 86 mm[Hg] 86 mm[Hg] eCW1 ([facility]) Systolic blood pressure 132 mm[Hg] 132 mm[Hg] e CW1 ([facility]) Body temperature 97.1 [degF] 97.1 [degF] eCW1 ( [facility]) Respiratory rate 18 /min 18 /min eCW1 ([facility]) Heart rate 101 /min 101 /min eCW1 ([facility]) Body mass index (BMI) [Ratio] 57.32 kg/m2 57.32 kg/m2 eCW1 ([facility]) Body height 71 [in_i] 71 [in_i] eCW1 ([facility]) Body weight 411 [lb_av] 411 [lb_av] eCW1 ([facility]) Diastolic blood pressure 82 mm[Hg] 82 mm[Hg] eCW1 ([facility]) Systolic blood pressure 136 mm[Hg] 136 mm[Hg] e CW1 ([facility]) Body mass index (BMI) [Ratio] 59.41 kg/m2 59.41 kg/m2 W1 ([facility]) Body height 71 [in_i] 71 [in_i] eCW1 ([facility]) Body weight 426 [lb_av] 426 [lb_av] eCW1 ([facility]) Diastolic blood pressure 92 mm[Hg] 92 mm[Hg] eCW1 ([facility]) Systolic blood pressure 138 mm[Hg] 138 mm[Hg] e CW1 ([facility]) Body mass index (BMI) [Ratio] 57.46 kg/m2 57.46 kg/m2 W1 ([facility]) Body height 71 [in_i] 71 [in_i] eCW1 ([facility]) Body weight 412 [lb_av] 412 [lb_av] eCW1 ([facility]) Body weight 180.986 kg 180.986 kg [facility] [facility] Body weight 399.00 [lb_av] 399.00 [lb_av] MEDEN T ([facility]) Oxygen saturation in Arterial blood by Pulse oximetry 98 % 98 % MEDENT ([facility]) Respiratory rate 18 /min 18 /min [facility] ( [facility]) Body temperature 97.6 [degF] 97.6 [degF] [facility] ([facility]) Heart rate 96 /min 96 /min [facility] ([facility]) Diastolic blood pressure 78 mm[Hg] 78 mm[Hg] [facility] ([facility]) Systolic blood pressure 132 mm[Hg] 132 mm[Hg] [facility] Diastolic blood pressure 61 mm[Hg] 61 mm[Hg] [facility] Systolic blood pressure 120 mm[Hg] 120 mm[Hg] [facility] Oxygen saturation in Arterial blood by Pulse oximetry 93 % 93 % [facility] Body temperature 36.5 Opal 36.5 Opal [facility] Respiratory rate 16 /min 16 /min [facility] Heart rate 88 /min 88 /min [facility] Body mass index (BMI) [Ratio] 55.37 kg/m2 55.37 kg/m2 [facility] Body weight 180.078 kg 180.078 kg [facility] Body height 180.3 cm 180.3 cm [facility] Oxygen saturation in Arterial blood by Pulse oximetry 95 % 95 % [facility] Body mass index (BMI) [Ratio] 55.50 kg/m2 55.50 kg/m2 [facility] Body weight 180.486 kg 180.486 kg [facility] Body height 180.3 cm 180.3 cm [facility] Heart rate 96 /min 96 /min [facility] Diastolic blood pressure 61 mm[Hg] 61 mm[Hg] [facility] Systolic blood pressure 112 mm[Hg] 112 mm[Hg] [facility] Body weight 180.533 kg 180.533 kg MEDENT [...] Body height 71 [in_i] 71 [in_i] [facility] ([facility]) 5'11" Body weight 180.533 kg 180.533 kg MED[facility] ([facility]) Body weight 398.00 [lb_av] 398.00 [lb_av] MEDEN T ([facility]) Oxygen saturation in Arterial blood by Pulse oximetry 97 % 97 % [facility] ([facility]) Respiratory rate 22 /min 22 /min [facility] ( [facility]) Body temperature 97.6 [degF] 97.6 [degF] [facility] ([facility]) Heart rate 86 /min 86 /min [facility] Diastolic blood pressure 72 mm[Hg] 72 mm[Hg] [facility] ([facility]) Systolic blood pressure 130 mm[Hg] 130 mm[Hg] M EDENT ([facility]) Body surface area 2.79 m2 2.79 m2 [facility] ([facility]) Body mass index (BMI) [Ratio] 54.1 kg/m2 54.1 k g/m2 [facility] ([facility]) Body height 71 [in_i] 71 [in_i] [facility] ([facility]) 5'11" Body weight 175.997 kg 175.997 kg [facility] per chart Body weight 388.00 [lb_av] 388.00 [lb_av] MEDEN T ([facility]) Body surface [facility] 2.79 m[facility] 2.79 [facility] Body mass index (BMI) [Ratio] 54.1 kg/m2 54.1 k g/m2 [facility] ([facility]) Body height 71 [in_i] 71 [in_i] [facility] ([facility]) 5'11" Body weight 175.997 kg 175.997 kg [facility] ([facility]) Body weight 388.00 [lb_av] 388.00 [lb_av] MEDEN T ([facility]) Oxygen saturation in Arterial blood by Pulse oximetry 96 % 96 % [facility] Respiratory rate 24 /min 24 /min [facility]) wearing mask Body temperature 97.8 [degF] 97.8 [degF] [facility] Heart rate 76 /min 76 /min [facility]) Diastolic blood pressure 58 mm[Hg] 58 mm[Hg] [facility] ([facility]) Systolic blood pressure 126 mm[Hg] 126 mm[Hg] [facility] Body surface area 2.78 m2 2.78 m2 [facility] ([facility]) Body mass index (BMI) [Ratio] 53.6 kg/m2 53.6 k g/m2 [facility] ([facility]) Body height 71 [in_i] 71 [in_i] [facility] ([facility]) 5'11" Body weight 174.296 kg 174.296 kg [facility] ([facility]) Body weight 384.25 [lb_av] 384.25 [lb_av] MEDEN T ([facility]) Oxygen saturation in Arterial blood by Pulse oximetry 98 % 98 % [facility] ([facility]) Respiratory rate 18 /min 18 /min [facility] Body temperature 98.0 [degF] 98.0 [degF] [facility] ([facility]) Heart rate 94 /min 94 /min [facility] ([facility]) Diastolic blood pressure 64 mm[Hg] 64 mm[Hg] [facility] ([facility]) Systolic blood pressure 118 mm[Hg] 118 mm[Hg] [facility] Heart rate 92 /min 92 /min [employer] ([facility] use [facility]) Diastolic blood pressure 88 mm[Hg] 88 mm[Hg] [employer] ([facility]) Systolic blood pressure 140 mm[Hg] 140 mm[Hg] N [employer] ([facility]) ID Date Data Source [id number] 06/09/2020 09:34:40 AM [facility] Name Value Range Interpretation Code Description Data Source(s) WEIGHT RECORDED 417.6 lb 417.6 lb [facility] Body height Measured 70.98 in 70.98 in [facility] ID Date Data Source [id number] 05/09/2020 02:17:[address] [facility] Name Value Range Interpretation Code Description Data Source(s) WEIGHT RECORDED 407 lb 407 lb [facility] Body height Measured 70.98 in 70.98 in [facility] ID Date Data Source [id number] 01/14/2020 09:34:45 AM EDT [facility] Name Value Range Interpretation Code Description Data Source(s) WEIGHT RECORDED 384.00 pounds 384.00 pounds [facility] Height 71 Inches 071 Inches [facility] Patient Treatment Plan of Care Planned Activity Planned Date Details Description Data Source (s) Misc. Devices (DURABLE MEDICAL EQUIPMENT SEE SIG) XX M ISC 06/28/2020 12:00:00 AM [facility] ospital Clindamycin 0.01 MG/MG Topical Gel 06/12/2020 12:00:00 AM EST eCW1 ([facility]) Cephalexin 500 MG Oral Capsule 06/06/2020 01:30:00 PM [facility] lidocaine (XYLOCAINE) 2 % urojet 20 mL 06/06/2020 01:30:00 PM [facility] Doxycycline Monohydrate 50 MG Oral Capsule 05/15/2020 12:00:00 AM E DT eCW1 ([facility]) ciclopirox 10 MG/ML Medicated Shampoo 05/15/2020 12:00:00 AM EDT eCW1 ([facility]) alclometasone dipropionate 0.5 MG/ML Topical Cream 05/15/2020 12 :00:00 AM EDT eCW1 ([facility]) Doxycycline Monohydrate 50 MG Oral Capsule 05/15/2020 12:00:00 AM E DT eCW1 ([facility]) ciclopirox 10 MG/ML Medicated Shampoo 05/15/2020 12:00:00 AM EDT eCW1 ([facility]) alclometasone dipropionate 0.5 MG/ML Topical Cream 05/15/2020 12 :00:00 AM EDT eCW1 ([facility]) Doxycycline Monohydrate 50 MG Oral Capsule 05/15/2020 12:00:00 AM E DT eCW1 ([facility]) ciclopirox 10 MG/ML Medicated Shampoo 05/15/2020 12:00:00 AM EDT eCW1 ([facility]) alclometasone dipropionate 0.5 MG/ML Topical Cream 05/15/2020 12 :00:00 AM EDT eCW1 ([facility]) alclometasone dipropionate 0.5 MG/ML Topical Cream 05/15/2020 12 :00:00 AM EDT eCW1 ([facility]) Doxycycline Monohydrate 50 MG Oral Capsule 05/15/2020 12:00:00 AM E DT eCW1 ([facility]) ciclopirox 10 MG/ML Medicated Shampoo 05/15/2020 12:00:00 AM EDT eCW1 ([facility]) Docusate Sodium 100 MG Oral Capsule [DOK] 04/07/2020 12:00:00 AM ED T [facility] Desvenlafaxine Succinate ER 100 MG Oral Tablet Extended Release 24 Hour ([employer]ISTIQ) 04/07/2020 12:00:00 AM EDT [facility] Nystatin 100 UNT/MG Topical Powder 03/27/2020 12:00:00 AM [facility] Oxycodone Hydrochloride 5 MG Oral Tablet 02/09/2020 12:00:00 AM EDT [facility] Misc. Devices (DURABLE MEDICAL EQUIPMENT SEE SIG) [facility]09[facility] MG Oral Capsule 03/03/2018 12:00:00 AM EDT [facility] maalox/lidocaine/diphenhydrAMINE (RADIATION MIXTURE) 1 :1:1 oral suspension 05/29/2017 12:00:[address] [facility] Melatonin 3 MG Oral Tablet [facility] doxycycline hyclate 50 MG Oral Capsule [facility] PARoxetine (PAXIL) 30 MG tablet [facility]
[2020-09-14] MEDS ORDERED: MIRT-62 (15:22)
--- OUTSIDE RECORDS SUMMARY | 2020-09-14 16:14 | CCD ---
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 [employer] Name Role Phone Gabriel De La Rosa [...] SOTELO CDN, RD Unavailable BRYON, MEÑO LAVERN PARTY DEMONSTRATOR-C Unavailable Unavailable BRYON, MEÑO LAVERN PARTY DEMONSTRATOR-C Unavailable Unavailable BRYON, MEÑO LAVERN PARTY DEMONSTRATOR-C Unavailable Unavailable BRYON, MEÑO LAVERN PARTY DEMONSTRATOR-C Unavailable Unavailable BRYON, MEÑO LAVERN PARTY DEMONSTRATOR-C Unavailable Unavailable BRYON, MEÑO LAVERN PARTY DEMONSTRATOR-C Unavailable Unavailable BRYON, MEÑO LAVERN PARTY DEMONSTRATOR-C Unavailable Unavailable BRYON, MEÑO LAVERN PARTY DEMONSTRATOR-C Unavailable Unavailable BRYON, MEÑO LAVERN PARTY DEMONSTRATOR-C Unavailable Unavailable BRYON, MEÑO LAVERN PARTY DEMONSTRATOR-C Unavailable Unavailable BRYON, MEÑO LAVERN PARTY DEMONSTRATOR-C Unavailable Unavailable BRYON, MEÑO LAVERN PARTY DEMONSTRATOR-C Unavailable Unavailable BRYON, MEÑO LAVERN PARTY DEMONSTRATOR-C Unavailable Unavailable BRYON, MEÑO LAVERN PARTY DEMONSTRATOR-C Unavailable Unavailable BRYON, MEÑO LAVERN PARTY DEMONSTRATOR-C Unavailable Unavailable BRYON, MEÑO LAVERN PARTY DEMONSTRATOR-C Unavailable Unavailable VANVALKENMAURI, Miroslava ESCUDERO MD Unavailable Unavailable VANVALKENBURG, Miroslava ESCUDERO MD Unavailable Unavailable VANVALKENBURG, Miroslava ECSUDERO MD Unavailable Unavailable VANVALKENBURG, Miroslava ESCUDERO MD Unavailable Unavailable VANVALKENBURG, Miroslava ESCUDERO MD Unavailable Unavailable VANVALKENBURG, Miroslava ESCUDERO MD Unavailable Unavailable VANVALKENBURG, Miroslava ESCUDERO MD Unavailable Unavailable VANVALKENBURG, Mirsolava ESCUDERO MD Unavailable Unavailable VANVALKENBURG, Miroslava ESCUDERO [...] VANVALKENBURG, Miroslava ESCUDERO MD Unavailable Unavailable VANVALKENBURG, Miroslvaa ESCUDERO MD Unavailable Unavailable VANVALKENBURG, Miroslava ESCUDERO [...] Unavailable Unavailable OBLionel ZIEGLER MD Unavailable Unavailable OBiLonel ZIEGLER MD Unavailable Unavailable OBLionel ZIEGLER MD [...] A SANTOS MD Unavailable Unavailable BOONE, A SNATOS MD Unavailable Unavailable BOONE, A SANTOS MD [...] A KELLEN DPM Unavailable Unavailable Gabriel DAVIS [id number] Unavailable Unavailable MANFRED, [place] JONES MD Unavailable [...] OBEN, T SALVADOR Unavailable Unavailable OBTONEY T SALVAODR Unavailable Unavailable OBEN T SALVADOR Unavailable Unavailable OBEN T SALVADOR Unavailable Unavailable OBEN T SALVADOR Unavailable Unavailable OBEN T SALVADOR Unavailable Unavailable OBEN, T SALVADOR Unavailable Unavailable OBTONEY, T SALVADOR Unavailable Unavailable OBLionel ZIEGLER SALVAODR Unavailable Unavailable OBLionel ZIEGLER SALVADOR Unavailable Unavailable [...] OBEN, T SALVADOR Unavailable Unavailable OBEN, T SALVADRO Unavailable Unavailable OBEN, T SALVADOR Unavailable Unavailable [...] by Article 27-F of the [facility] Public Health law. If you continue you may have access to information: Regarding HIV / AIDS; Provided by facilities licensed or operated by the [facility] Office of Mental Health; or Provided by the [facility] Office for People With Developmental Disabilities. If such information is present, then the following [facility] mandated warning applies: This information has [...] law may result in a fine or intermediate sentence or both. A general authorization for the release of medical or other information is NOT sufficient authorization for further disc losure. Allergies and Adverse Reactions Type Description Substance Reaction Status Data Source(s ) No Known Food Allergies No Known Food Allergies [facility] BRANDNAME DILANTIN DILANTIN [facility] Drug allergy CODEINE CODEINE [facility] Drug allergy NAPROXEN NAPROXEN [facility] Family History Family Member Name Family Member Gender Family Member Status Date o f Status Description Data Source(s) Unknown Condition [facility] Unknown Condition [facility] Unknown Condition [facility] Unknown Condition [facility] Unknown Condition [facility] Unknown Condition [facility] Unknown Condition [facility] Unknown Condition [facility] Unknown Condition [facility] Encounters Encounter Providers Location Date Indications Data Source(s ) Outpatient Attender: SANTOS SHOOK MD 11/28/2020 12:00:[address] [facility] [place] [address] [address] 09/07/2020 12:00:00 AM EST eC ([facility]) [place] [address] [address] 09/01/2020 12:00:00 AM EST eCW1 ([facility]) [place] [address] [address] 08/28/2020 12:00:00 AM EST eCW1 ([facility]) [place] [address] [address] 08/25/2020 12:00:00 AM EST eCW1 ([facility]) Outpatient Attender: ROBERT Lu/Yonathan/Chucho/Re indl 08/23/2020 01:00:00 PM EST [facility]ENT ([facility]) Outpatient Attender: ALVERN Lu/Yonathan/Chucho/R eindl 08/17/2020 12:15:00 PM EST [facility] ([facility]) [place] [address] [address] 08/15/2020 12:00:00 AM EST eCW1 ([facility]) [place] [address] [address] 08/11/2020 12:00:00 AM EST eCW1 ([facility]) [place] [address] [address] 08/10/2020 12:00:00 AM EST eCW1 ([facility]) Outpatient Attender: MADISON PEPE 07/17/2020 12:00:00 A M [facility] Outpatient Attender: KOTA SIERRA MD [id number] 06/28/2020 12:00:00 AM EST Primary osteoarthritis, right ankle and foot [facility] Primary osteoarthritis, right ankle and foot Outpatient Attender: MADISON PEPE 06/26/2020 12:00:00 A M [facility] Outpatient [address] [address] 06/12/2020 12:00:00 AM EST eCW1 ([facility]) Outpatient Attender: SANTOS SHOOK MD [id number] 04/2020 12:00:00 AM EST - 06/06/2020 02:43:30 PM EST Post-traumatic bulbous urethral stricture [facility] Post-traumatic bulbous urethral strictur e Outpatient Attender: MADISON PEPE 06/05/2020 12:00:00 A M [facility] Outpatient Attender: Shannan Negrete MDConsultant: LETITIA HESTER MD 06/01/2020 01:00:00 PM EST - 06/01/2020 01:00:00 PM [facility] Outpatient Attender: MADISON PEPE 05/24/2020 [facility] [address] [address] 05/22/2020 12:00:00 AM EDT eCW1 ([facility]) [place] [address] [address] 05/22/2020 12:00:00 AM EDT eCW1 ([facility]) [place] [address] [address] 05/18/2020 12:00:00 AM EDT [facility]CW1 ([facility]) [place] [address] [address] 05/15/2020 12:00:00 AM EDT eCW1 ([facility]) Outpatient Attender: SANTOS SHOOK MD [id number] 12:00:00 AM EDT - 05/09/2020 02:16:06 PM EDT [facility] Outpatient Referrer: ADITYA TANG 04/26/2020 12:00:00 AM EDT Primary osteoarthritis, right ankle and foot [facility] Primary osteoarthritis, right ankle and foot Outpatient Referrer: ADITYA TANG 04/26/2020 12:00:00 AM EDT Primary osteoarthritis, right ankle and foot [facility] Primary osteoarthritis, right ankle and foot Outpatient Attender: ADITYA TANG [id number] 04/26/2020 12:00:00 AM EDT Primary osteoarthritis, right ankle and foot [facility] Primary osteoarthritis, right ankle and foot Outpatient Attender: Shannan Negrete MDConsultant: LETITIA HESTER MD 04/20/2020 02:36:00 PM EDT - 04/20/2020 02:36:00 PM EDT [facility] Outpatient Attender: LETITIA HESTER MDConsultant: LETITIA Madison MD 04/05/2020 10:11:00 AM EDT - 04/05/2020 10:11:00 AM EDT [facility] Outpatient Attender: SERAFIN GEORGES MDConsultant: LETITIA Madison MD 03/29/2020 01:51:00 PM EDT - 03/29/2020 01:51:00 PM EDT [facility] Outpatient Attender: LETITIA HESTER MDConsultant: LETITIA Madison MD 03/27/2020 12:49:00 PM EDT - 03/27/2020 12:49:00 PM EDT [facility] Outpatient Attender: KOTA SIERRA MD 03/24/2020 12: 00:[address] [facility] Emergency Attender: CLEO GRUBERConsultant: LETITIA Madison MD 03/22/2020 03:26:00 PM EDT - 03/22/2020 05:25:00 PM EDT [facility] Patient discharged. Outpatient Attender: ALTAGRACIA DAIVS [id number]: LETITIA HANSEN MD 03/20/2020 12:00:[address] [facility] Outpatient Attender: KOTA SIERRA MD 03/15/2020 12: 00:[address] [facility] Emergency Attender: HITESH MELGAR MDConsultant: LETITIA HESTER MD 03/09/2020 05:46:00 PM EDT - 03/10/2020 12:45:00 AM EDT [facility] Patient discharged. Outpatient Attender: LETITIA HESTER MD Family Practice 02/23/2020 1 1:00:00 AM EDT [facility] ([facility]) Outpatient Attender: LETITIA HESTER MDConsultant: LETITIA Madison MD 02/23/2020 10:36:00 AM EDT - 02/23/2020 10:36:00 AM EDT [facility] Outpatient Attender: ROBERT TAMAYO MDReferrer: ROBERT TAMAYO MD MOB-MOB.PAT 02/04/2020 10:47:57 AM EDT - 02/04/2020 11:35:59 AM EDT [facility] Outpatient Attender: ROBERT TAMAYO MDReferrer: ROBERT TAMAYO MD MOB-MOB.PAT 02/04/2020 10:12:45 AM EDT - 02/04/2020 10:12:49 AM EDT [facility] SDC Attender: ROBERT TAMAYO MDAdmitter: ROBERT TAMAYO MD ES1-OR 02/02/2020 10:39:51 AM EDT - 02/09/2020 05:00:00 PM EDT [facility] Patient discharged. Outpatient Referrer: ROBERT TAMAYO MD 01/31/2020 01:06:48 P M EDT [facility] Emergency Attender: MILAGROS MORSE MDConsultant: LETITIA Madison MD 01/27/2020 11:08:00 AM EDT - 01/27/2020 01:46:00 PM EDT [facility] Patient discharged. Outpatient Attender: Lance De La Rosa MD Main Office 01/18/2020 02:15:00 PM EDT [facility]) Outpatient Attender: LETITIA HESTER MDConsultant: LETITIA Madison MD 01/17/2020 09:33:00 AM EDT - 01/17/2020 10:33:00 AM EDT [facility] Emergency Attender: MILAGROS MORSE MDConsultant: LETITIA Madison MD 01/13/2020 01:42:00 PM EDT - 01/13/2020 05:54:00 PM EDT [facility] Patient discharged. Outpatient Attender: LETITIA HESTER MD Family Practice 01/12/2020 0 1:20:00 PM EDT [facility] ([facility]) Outpatient Attender: LETITIA HESTER MDConsultant: LETITIA Madison MD 01/12/2020 12:32:00 PM EDT - 01/12/2020 12:32:00 PM EDT [facility] Outpatient Attender: SALVADOR KAMARA MDConsultant: LETITIA HESTER MD 12/31/2019 08:45:00 AM EDT - 12/31/2019 11:35:00 AM EDT [facility] Patient discharged. Outpatient Attender: Carmen Biswas MS, RPA-CConsultan t: LETITIA HESTER MD 12/28/2019 09:05:00 AM EDT - 12/28/2019 09:15:00 AM EDT [facility] Patient discharged. Outpatient Attender: SALVADOR KAMARA MDConsultant: LETITIA HESTER MD 12/15/2019 11:32:18 AM EDT [facility] Outpatient Attender: ALESSIO SOTELO CDN, RDConsultant: LETITIA HESTER MD 12/14/2019 12:59:00 PM EDT - 12/14/2019 12:59:00 PM EDT [facility] Outpatient Attender: SALVADOR KAMARA MDConsultant: LETITIA HESTER MD 12/13/2019 02:57:37 PM EDT - 12/14/2019 12:20:00 PM EDT [facility] Patient discharged. Outpatient Attender: LETITIA HESTER MDConsultant: LETITIA Madison MD 11/29/2019 10:16:00 AM EDT - 12/16/2019 08:54:00 AM EDT [facility] Patient discharged. Outpatient Attender: LETITIA HESTER MDConsultant: LETITIA Madison MD 11/25/2019 12:56:00 PM EDT - 11/25/2019 12:56:00 PM EDT [facility] Outpatient Attender: SALVADOR KAMARA MDConsultant: LETITIA HESTER MD 11/23/2019 11:13:00 AM EDT - 11/23/2019 11:13:00 AM EDT [facility] Outpatient Attender: SALVADOR KAMARA MD Family Practice 11/23/2019 08:15:0 0 AM EDT [facility] ([facility]) Outpatient Attender: LETITIA HESTER MDConsultant: LETITIA Madison MD 11/19/2019 10:35:00 AM EDT - 11/19/2019 11:36:00 AM EDT [facility] Outpatient Attender: LETITIA HESTER MD Family Practice 11/18/2019 0 3:00:00 PM EDT [facility] ([facility]) Outpatient Attender: LETITIA HESTER MDConsultant: PCP NO 11/18/2019 02:08:00 PM EDT - 11/18/2019 02:08:[facility]: YI CASSIDY MDConsultant: PCP NO 10/21/2019 03:31:00 PM EDT - 10/21/2019 05:41:00 PM EDT [facility] Patient discharged. Outpatient Attender: KOTA SIERRA MD 10/15/2019 12: 00:00 AM EDT [facility] OutpatientEST-LEVEL 4 Attender: KELLEN PRIETO DPM [facility] Podiatr y 10/06/2019 02:30:00 PM EDT - 10/06/2019 02:30:00 PM EDT Nail dystrophyUnspecified osteoarthritis, unspecified site [facility] ([facility]) Nail dystrophy Unspecified osteoarthritis, unspecified site Outpatient Attender: Kota QUINTEROeferrer: Kota Anderson MD 09/14/2019 03:48:00 PM EST - 09/14/2019 04:28:00 PM EST [facility] Outpatient Attender: Lance Bryanterrlilia: Kota collins MD 08/12/2019 01:49:00 PM EST [facility] Immunizations Vaccine Date Status Description Data Source(s) This CVX code allows reporting of a vacc ination when formulation is unknown (for example, when recording a Influenza vaccination when noted on a vaccination card) 07/19/2019 12:00:00 AM EST completed influenza, injectable , [facility] This CVX code allows reporting of a vacc ination when formulation is unknown (for example, when recording a Influenza vaccination when noted on a vaccination card) 07/19/2019 12:00:00 AM EST completed influenza, injectable , [facility] Medications Medication Brand Name Start Date Product Form Dose Route Admi nistrative Instructions Pharmacy Instructions Status Indications Reaction Description Data Source(s) [facility]. Devices (DURABLE MEDICAL EQUIPMENT SEE SIG) XX [facility] 97 [id number] 06/28/2020 12:00:00 AM EST active Use as directed. Roll A Bout Knee Scooter Dx: [facility] Clindamycin 0.01 MG/MG Topical Gel Clindamycin Phospha te 1 % Clindamycin Phosphate 1 % 06/12/2020 12:00:00 AM EST 1.0 {application} active Clindamycin Phosphate 1 % eCW1 ([facility]) lidocaine (XYLOCAINE) 2 % urojet 20 mL [address]-7 0 01:30:00 PM EST 20 mL Urethral completed 20 mL, Urethr al, Once, 06/06/20 at 1330, For 1 dose [facility] Medication administered onsite Cephalexin 500 MG Oral Capsule cephALEXin (KEFLEX) cap gt 500 mg cephALEXin (KEFLEX) capsule 500 mg 06/06/2020 01:30:00 PM EST 500 mg Oral completed 500 mg, Oral, Once, Fri06/06/20 at 1330 , For 1 dose [facility] Medication administered onsite alclometasone dipropionate 0.5 MG/ML Top ical Cream Alclometasone Dipropionate 0.05 % Alclometasone Dipropionate 0.05 % 05/15/2020 12:00:00 AM EDT 1.0 {application} active Alclometasone Dipr opionate 0.05 % eCW1 ([facility]) ciclopirox 10 MG/ML Medicated Shampoo Ciclopirox 1 % Ciclopi oneil 1 % 05/15/2020 12:00:00 AM EDT 1.0 {application} active Ciclopirox 1 % eCW1 ([facility]) ciclopirox 10 MG/ML Medicated Shampoo Ciclopirox 1 % Ciclopi oneil 1 % 05/15/2020 12:00:00 AM EDT 1.0 {application} active Ciclopirox 1 % eCW1 ([facility]) Doxycycline Monohydrate 50 MG Oral Capsule Doxycycline Monoh ydrate 50 MG 05/15/2020 12:00:00 AM EDT 1.0 {capsule} active Doxycycline Monohydrate 50 MG eCW1 ([facility]) alclometasone dipropionate 0.5 MG/ML Top ical Cream Alclometasone Dipropionate 0.05 % Alclometasone Dipropionate 0.05 % 05/15/2020 12:00:00 AM EDT 1.0 {application} active Alclometasone Dipr opionate 0.05 % eCW1 ([facility]) Doxycycline Monohydrate 50 MG Oral Capsule Doxycycline Monoh ydrate 50 MG 05/15/2020 12:00:00 AM EDT 1.0 {capsule} active Doxycycline Monohydrate 50 MG eCW1 ([facility]) alclometasone dipropionate 0.5 MG/ML Top ical Cream Alclometasone Dipropionate 0.05 % Alclometasone Dipropionate 0.05 % 05/15/2020 12:00:00 AM EDT 1.0 {application} active Alclometasone Dipr opionate 0.05 % eCW1 ([facility]) ciclopirox 10 MG/ML Medicated Shampoo Ciclopirox 1 % Ciclopi oneil 1 % 05/15/2020 12:00:00 AM EDT 1.0 {application} active Ciclopirox 1 % eCW1 ([facility]) alclometasone dipropionate 0.5 MG/ML Top ical Cream Alclometasone Dipropionate 0.05 % Alclometasone Dipropionate 0.05 % 05/15/2020 12:00:00 AM EDT 1.0 {application} active Alclometasone Dipr opionate 0.05 % eCW1 ([facility]) ciclopirox 10 MG/ML Medicated Shampoo Ciclopirox 1 % Ciclopi oneil 1 % 05/15/2020 12:00:00 AM EDT 1.0 {application} active Ciclopirox 1 % eCW1 ([facility]) Doxycycline Monohydrate 50 MG Oral Capsule Doxycycline Monoh ydrate 50 MG 05/15/2020 12:00:00 AM EDT 1.0 {capsule} active Doxycycline Monohydrate 50 MG eCW1 ([facility]) Doxycycline Monohydrate 50 MG Oral Capsule Doxycycline Monoh ydrate 50 MG 05/15/2020 12:00:00 AM EDT 1.0 {capsule} active Doxycycline Monohydrate 50 MG eCW1 ([facility]) Docusate Sodium 100 MG Oral Capsule [DOK] DOK 100 MG O ral Capsule DOK 100 MG Oral Capsule 04/07/2020 12:00:00 AM EDT 100 mg Oral activ e Take 100 mg by mouth daily [facility] Desvenlafaxine Succinate ER 100 MG Oral Tablet Extended Release 24 Hour (PRISTIQ) 1336-0744-88 04/07/2020 12:00:00 AM EDT Oral active Take by mouth daily [facility] Nystatin 100 UNT/MG Topical Powder Nysta tin [id number] UNIT/GM External Powder (MYCOSTATIN) Nystatin [id number] UNIT/GM External Powder (MYCOSTATIN) 0 03/27/2020 12:00:00 AM EDT active APPLY TO AFFECTED AREA S TWO TIMES A DAY ABDOMINAL FOLDS [facility] heparin (porcine) injection 5,000 Units 44711-741-25 02/09/20 05:00:00 PM EDT 5000 U Subcutaneous active 5,000 Units , Subcutaneous, Every 8 hours (scheduled), First dose on Fri02/09/20 at 1700, Post-op
If platelet count is less than 100,000 or hematocrit is less than 25, or if there is a 5 point decrea se in hematocrit, do not give the dose and call physician/designee.
[facility] Medication administered onsite dextrose 5 % and sodium chloride 0.9 % infusion 9605-3861-64 02/09/2020 05:00:00 PM EDT Intravenous active at 1 00 mL/hr, Intravenous, Continuous, Starting Fri02/09/20 at 1700, Post-op
Hep lock with good PO
[facility] Medication administered onsite Oxycodone Hydrochloride 5 MG Oral Tablet oxyCODONE (ROXICODONE) immediate release tablet 5 mg oxyCODONE (ROXICODONE) immediate release tablet 5 mg 02/09/2020 04:27:42 PM EDT 5 mg Oral active 5 mg, Oral, Every 4 hours PRN, moderate pain (4-6), Starting Fri02/09/20 at 1627, For 7 days, Post-op [facility] Medication administered onsite ondansetron (ZOFRAN) injection 4 mg [id number] 02/09/2020 04:27:4 2 PM EDT 4 mg Intravenous active 4 mg, In travenous, Every 6 hours PRN, nausea, vomiting, Starting Fri02/09/20 at 1627, Post-op [facility] Medication administered onsite Magnesium Chloride 0.72117 MEQ/ML / Pota ssium Chloride 0.0497 MEQ/ML / Sodium Acetate 0.0163 MEQ/ML / Sodium Chloride 0.0899 MEQ/ML / Sodium gluconate 5.02 MG/ML Injectable Solution [Normosol-R] electrolyte-R (NORMOSOL-R/PLASMALYTE-R) solution electrolyte-R (NORMOSOL-R/PLASMALYTE-R) solution 02/08 04:00:00 PM EDT Intravenous active at 1 00 mL/hr, Intravenous, Continuous, Starting Fri02/09/20 at 1600, PACU & Post-op [facility] Medication administered onsite normal saline flush 0.9 % injection 3 mL 56835-715-95 02/09/2020 04:00:00 PM EDT 3 mL Intravenous active 3 mL , Intravenous, Every 8 hours (scheduled), First dose on Fri02/09/20 at 1600, PACU (only)
flush per protocol, D/C Main IV fluid if appropriate
[facility] Medication administered onsite 10 ML Atropine [...] or 0.04 mg/kg. Max of 6 doses
[facility] Medication administered onsite fentaNYL Citrate (PF) (SUBLIMAZE) injection 25 mcg [id number] 02/09/2020 02:45:03 PM EDT 25 ug Intravenous completed 25 mcg, Intravenous, Every 5 min PRN, moderate pain (4-6), Starting Fri02/09/20 at 1445, For 4 doses, PACU (only) [facility] Medication administered onsite normal saline flush 0.9 % injection 3 mL [id number] 02/09/2020 02:00:00 PM EDT 3 mL Intravenous active 3 mL , Intravenous, Every 8 hours (scheduled), First dose on Fri02/09/20 at 1400, Pre-op
Rapid push positive pressure flushing shall be performed with a 10 cc normal saline syringe to check the PATENCY of a PIV site prior to any infusion therapy initiation unless resistance is met.
[facility] Medication administered onsite Oxycodone Hydrochloride 5 MG Oral Tablet oxyCODONE (ROXICODONE) 5 MG immediate release tablet oxyCODONE (ROXICODONE) 5 MG immediate release tablet 0 02/09/2020 12:00:00 AM EDT 5 mg Oral active Take 1 tablet (5 mg total) by mouth every 6 (six) hours as needed for pain Max Daily Amount: 20 mg [facility] Levetiracetam 500 MG Oral Tablet [Keppra] Keppra 01/20/2020 12:00 :00 AM EDT ORAL active [facility] ([facility]) montelukast 10 MG Oral Tablet Montelukast Sodium 11/22/2019 12:00:00 AM EDT ORAL active [facility] ([facility]) Docusate Sodium 100 MG Oral Capsule [Colace] Colace 12:00:00 AM EDT ORAL active [facility] ( [facility]) 750 mg 09/14/2019 12:00:00 AM EST [...] 08/30/2019 09:14:43 AM EST [address] [facility] Methocarbamol 750 MG Oral Tablet Methocarbamol 08/30/2019 09:12:29 AM EST 750 MG active [facility] 750 mg 08/30/2019 12:00:00 AM EST [...] 09:11:55 AM EST 50 MG active [facility] cetirizine hydrochloride 10 MG Oral Capsule Cetirizine Cetir izine 08/19/2019 09:11:50 AM EST 10 MG active L [facility] 10 mg 08/19/2019 12:00:00 AM EST [...] WE[employer]OTE[employer] DURING TREATMENT SOLD: 08/18/2019 [facility] topiramate 200 MG Oral Tablet TOPIRAMATE 08/01/2019 12:00:00 AM EST ta blet 60 TAKE ONE TABLET BY MOUTH TWICE A DAY TAKE ONE TABLET BY MOUTH TWICE A DAY SOLD: 2019 [facility] topiramate 200 MG Oral Tablet TOPIRAMATE 08/01/2019 12:00:00 AM EST ta blet 60 TAKE ONE TABLET BY MOUTH TWICE A DAY TAKE ONE TABLET BY MOUTH TWICE A DAY SOLD: 08/01/2019 [facility] topiramate 200 MG Oral Tablet Topiramate Topiramate 020 02:39:04 PM EST 200 MG active [facility] 750 mg 07/18/2019 12:00:00 AM EST [...] 07/13/2019 03:23:25 PM EST [address] [facility] 100 mg 06/04/2019 12:00:00 AM EST [...] 06/01/2019 02:30:05 PM EST [address] [facility] 15 mg 06/01/2019 12:00:00 AM EST tablet 30 TAKE ONE TABLET BY MOUTH EVERY DAY TAKE ONE TABLET BY MOUTH EVERY DAY SOLD: 07/26/2019 [facility] Methylprednisolone Methylprednisolone 05/31/2019 06:14:06 PM EST 0 completed [facility] cetirizine hydrochloride 10 MG Oral Capsule Cetirizine Cetir izine 05/17/2019 09:13:30 AM EDT 10 MG [facility] Doxycycline Monohydrate 50 MG Oral Capsule Doxycycline Monoh ydrate 05/17/2019 09:13:09 AM EDT 50 MG [facility] 600 mg 05/17/2019 12:00:00 AM EDT [...] 019 12:59:00 PM EDT 200 MG completed [facility]. Devices (DURABLE MEDICAL EQUIPMENT SEE SIG) [facility] [id number] 10/09/2018 12:00:00 AM EDT aborted Use as directed. Rolling walker with seat Dx: Right ankle arthritis [facility] gabapentin 100 MG Oral Capsule gabapentin (NEURONTIN) 100 MG capsule gabapentin (NEURONTIN) 100 MG capsule 03/03/2018 12:00:00 AM EDT 100 mg Oral aborted Take 100 mg by mouth Daily [facility] maalox/lidocaine/diphenhydrAMINE (RADIATION MIXTURE) 1:1:1 o ral suspension 05/29/2017 12:00:00 AM EDT 10 mL Swish & Spit aborted Swish and spit 10 mLs every 2 (two) hours as needed (For Mouth Pain)Pharmacy compound: Maalox, lidocaine viscous 2 %, Benadryl 12.5 mg/5 mL [facility] PARoxetine (PAXIL) 30 MG tablet [id number] 30 mg Oral aborted Take 30 mg by mouth every morning [facility] Melatonin 3 MG Oral Tablet melatonin 3 MG tablet melatonin 3 MG table t 5 mg Oral aborted Take 5 mg by m outh nightly Indications: Pt takes two tabs nightly [facility] doxycycline hyclate 50 MG Oral Capsule doxycycline ( BRAMYCIN) 50 MG capsule doxycycline (VIBRAMYCIN) 50 MG capsule 100 mg Oral aborted Take 100 mg by mouth every morning [facility] Insurance Providers Payer name Policy type / Coverage type Policy ID Covered democrat ID Covered democrat's relationship to de la rosa Policy De La [place] Plan Information [facility] COMMUNITY PLAN [facility] [id number] SP [id number] [facility] COMMUNITY PLAN [facility] [id number] SP [id number] [facility] P [id number] S [id number] [facility] COMMUNITY PLAN [facility] [id number] SP [id number] [facility] I [id number] Self [id number] [facility] COMMUNTY PLAN [id number] 18 [id number] [facility] COMMUNITY PLAN XIX [id number] 18 [id number] UNHC COMMUNITY PLAN MCDO [id number] SP [id number] [facility] MEDICAID [id number] [facility] MEDICAID [id number] Sepideh [id number] INSURANCE COVID-19 COVID Sepideh C OVID INSURANCE COVID-19 [id number] 2 [id number] BLUE CROSS BLUE SHIELD-O/P [id number] 18 [id number] UNHC COMMUNITY PLAN XIX -RECURRING [id number] 18 [id number] [facility] Community Plan [id number] 99 [id number] STPP Wrap [id number] [employer] Other 0 Self 0 [employer]Health[employer] Other 0 Self 0 [employer]Health[employer] Other 0 Self 0 C MEDICAID PI PI MEDICAID [id number] Sepideh [id number] [employer] Other 0 Self 0 UnitedHealthcare Other 0 Self 0 UnitedHealthcare Other 0 Self 0 [place] [id number] Self [id number] Hmo Blue Option/Medicaid Health Maintenance Organization (HMO) [id number] Self [id number] [facility] Health Maintenance Organization (HMO) [id number] [place] [id number] [place] Med[place] [id number] Self [id number] Hmo Blue Option/Medicaid Health Maintenance Organization (HMO) [id number] Self [id number] Medicaid Medicaid [id number] Self [id number] [facility]-Community Plan Commercial [id number] Self [id number] [place]ig[place] [id number] Family Dependent [id number] [facility] Community Plan Commercial [id number] Self [id number] [employer] Other 0 Self 0 UNHC COMMUNITY PLAN MCDO [id number] SP [id number] [place]ap [place] [id number] Self [id number] Hmo Blue Option/Medicaid Health Maintenance Organization (HMO) [id number] Self [id number] [facility] Health Maintenance Organization (HMO) [id number] Self [id number] Community Plan - [facility] Commercial [id number] Self [id number] Community Plan - [facility] Commercial [id number] Self [id number] UnitedHealthcare Other 0 Self 0 Medicaid [id number] Community Plan - [facility] Commercial [id number] Self [id number] [facility] [id number] 99 [id number] Community Plan - [facility] Commercial Self [facility] Paul/MCR Medigap Part [place] Part B Self Hmo Blue Option/Medicaid Health Maintenance Organization (HMO) Self [facility] [id number] UHC PLUS PAUL COMMUNITY PLAN [id number] SELF [id number] [employer] PAUL [id number] SELF [id number] [facility] [id number] Patient [id number] [facility] [id number] Patient [id number] SELF PAY UNAVAILABLE SELF UNAVAILA BLE Medicaid Medicaid Self Uhc-Community Plan Commercial Self MEDICAID M [id number] Self [id number] [facility](MCAID) P [id number] S [id number] [facility](MCAID) P [id number] S [id number] [facility] MEDICAID 7 [id number] 1 [id number] SELFPAY 5 UNAVAILABLE 1 UNAVAILA BLE MEDICAID 3 [id number] BLUE CHOICE OPTIONS 7 [id number] MEDICAID W [id number] BLUE CHOICE OPTION O [id number] S [id number] BLUE CROSS [place]ERMAN PLAN [id number] SP [id number] BLUE CROSS BERMAN PLAN [id number] SP [id number] MEDICAID [id number] SP [id number] HMO BLUE [id number] UNAVAILABLE UNAVAILA BLE Problems, Conditions, and Diagnoses Code Display Name Description Problem Type Effective Dates Data Source(s) 14191022 Essential hypertension Essential hypertension Problem 08/23/2020 12:00:00 AM EST MEDENT ([facility], ) J45.20 [id number] Mild intermittent asthma without complica tion Problem 08/03/2020 12:00:00 AM EST eCW1 ([facility]) Z68.43 [id number] BMI 50.0-59.9, adult Problem 08/03/2020 12:0 0:00 AM EST eCW1 ([facility]) G47.33 [id number] Obstructive sleep apnea Problem 08/03/2020 1 2:00:00 AM EST eCW1 ([facility]) G40.909 [id number] Seizure disorder Problem 08/03/2020 12:00:00 AM EST [facility] ([facility]) [id number] Abdominal pain Abdominal pain Problem 01/18/2020 12:00: 00 AM EDT [facility] ([facility]) [id number] Essential hypertension Essential hypertension Problem 11/18/2019 12:00:00 AM EDT [facility] ([facility]) S92.101S Unspecified fracture of right talus, seq uela Unspecified fracture of right talus, sequela Diagnosis 06/28/2020 07:03:06 AM [facility] M19.071 Primary osteoarthritis, right ankle and foot Primary osteoarthritis, right ankle and foot Diagnosis 06/28/2020 07:03:06 AM [facility] [id number] Encounter for other preprocedural examin ation Encounter for other preprocedural examination Diagnosis 04/20/2020 02:36:00 PM EDT [facility] H6123 Impacted cerumen, bilateral Impacted cerumen, bilatera l Diagnosis 04/05/2020 10:11:00 AM EDT [facility] R1033 Periumbilical pain Periumbilical pain Diagnosis 08/2019 01:51:00 PM EDT [facility] H6122 Impacted cerumen, left ear Impacted cerumen, left ear Diagnosis 03/27/2020 12:49:00 PM EDT [facility] Z6843 Body mass index (BMI) 50.0-59.9, adult B santos mass index (BMI) 50.0-59.9, adult Diagnosis 03/27/2020 12:49:00 PM EDT [facility] E669 Obesity, unspecified Obesity, unspecified Diagnosis 03/27/2020 12:49:00 PM EDT [facility] R569 Unspecified convulsions Unspecified convulsions Diagno sis 03/27/2020 12:49:00 PM EDT [facility] B372 Candidiasis of skin and nail Candidiasis of skin and n ail Diagnosis 03/27/2020 12:49:00 PM EDT [facility] R1030 Lower abdominal pain, unspecified Lower abdomina l pain, unspecified Diagnosis 03/27/2020 12:49:00 PM EDT [facility] [id number] Unspecified asthma, uncomplicated Unspecified as thma, uncomplicated Diagnosis 03/22/2020 03:26:00 PM EDT [facility] G8929 Other chronic pain Other chronic pain Diagnosis 03:26:00 PM EDT [facility] [id number] Personal history of nicotine dependence Personal history of nicotine dependence Diagnosis 03/09/2020 05:46:00 PM EDT [facility] K2970 Gastritis, unspecified, without bleeding Gastritis, unspecified, without bleeding Diagnosis 03/09/2020 05:46:00 PM EDT [facility] R109 Unspecified abdominal pain Unspecified abdominal pain Diagnosis 03/09/2020 05:46:00 PM EDT [facility] R631 Polydipsia Polydipsia Diagnosis 02/23/2020 10:36:00 AM ED T [facility] R358 Other polyuria Other polyuria Diagnosis 02/23/2020 10:36: 00 AM EDT [facility] J449 Chronic obstructive pulmonary disease, u nspecified Chronic obstructive pulmonary disease, unspecified Diagnosis 02/23/2020 10:36:00 AM EDT [facility] K43.2 Incisional hernia without obstruction or gangrene Incisional hernia without obstruction or Diagnosis 02/09/2020 08:51:00 AM EDT [facility] K43.0 Incisional hernia with obstruction, with out gangrene Incisional hernia with obstruction, with Diagnosis 02/09/2020 08:51:00 AM EDT [facility] J98.8 Other specified respiratory disorders Ot her specified respiratory disorders Diagnosis 02/04/2020 10:12:45 AM EDT [facility] U07.1 COVID-19 COVID-19 Diagnosis 02/04/2020 10:12:45 AM ED T [facility] K429 Umbilical hernia without obstruction or gangrene Umbilical hernia without obstruction or gangrene Diagnosis 01/27/2020 11:08:00 AM EDT [facility] D54699 Epilepsy, unspecified, not intractable, without status epilepticus Epilepsy, unspecified, not intractable, without status epilepticus Diagnosis 01/13/2020 01:42:[address] 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 R0789 Other chest pain Other chest pain Diagnosis 01/12/2020 12 :32:[address] [facility] M77068 Other urethral stricture, male, unspecif ied site Other urethral stricture, male, unspecified site Diagnosis 12/31/2019 08:45:[address] [facility] R3121 Asymptomatic microscopic hematuria Asymptomatic microscopic hematuria Diagnosis 12/31/2019 08:45:[address] [facility] Z1159 Encounter for screening for other viral diseases Encounter for screening for other viral diseases Diagnosis 12/28/2019 09:05:[address] [facility] Z713 Dietary counseling and surveillance Dietary coun seling and surveillance Diagnosis 12/14/2019 12:59:[address] [facility] R99 Ill-defined and unknown cause of mortali ty Ill-defined and unknown cause of mortality Diagnosis 12/14/2019 12:20:[address] [facility] M6281 Muscle weakness (generalized) Muscle weakness (general ized) Diagnosis 11/29/2019 10:16:[address] [facility] M545 Low back pain Low back pain Diagnosis 11/29/2019 10:16:[address] [facility] E785 Hyperlipidemia, unspecified Hyperlipidemia, unspecifie d Diagnosis 11/25/2019 12:56:[address] [facility] K5900 Constipation, unspecified Constipation, unspecified Di agnosis 11/25/2019 12:56:[address] [facility] K219 Gastro-esophageal reflux disease without esophagitis Gastro-esophageal reflux disease without esophagitis Diagnosis 11/25/2019 12:56:00 PM ED [facility] O57963 Other spondylosis, thoracic region Other spondyl osis, thoracic region Diagnosis 11/19/2019 10:35:[address] [facility] G08692 Other spondylosis, lumbar region Other spondylos is, lumbar region Diagnosis 11/19/2019 10:35:[address] [facility] Z1331 Encounter for screening for depression E ncounter for screening for depression Diagnosis 11/18/2019 02:08:00 PM EDT [facility] J309 Allergic rhinitis, unspecified Allergic rhinitis, unsp ecified Diagnosis 11/18/2019 02:08:00 PM EDT [facility] R310 Gross hematuria Gross hematuria Diagnosis 10/21/2019 03:3 1:00 PM EDT [facility] R300 Dysuria Dysuria Diagnosis 10/21/2019 03:31:00 PM ED T [facility] Surgeries/Procedures Procedure Description Date Indications Data Source(s) SURGERY CASE REQUEST OUTSIDE FACILITY ONLY SURGERY CA SE REQUEST OUTSIDE FACILITY ONLY Routine 06/28/2020 1:27 PM EST Arthritis of right subtalar joint Closed displaced fracture of right talus, unspecified fracture morphology, sequela 06/28/2020 01:27:23 PM EST Closed displa loyd fracture of right talus, unspecified fracture morphology, sequelaArthritis of right subtalar joint [facility] Closed displaced fracture of right talus , unspecified fracture morphology, sequela Arthritis of right subtalar joint BLOOD TYPING ABO TYPE AND SCREEN Routine 02/09/2020 12:30 PM EDT 02/09/2020 04:30:00 PM EDT [facility] ECG ROUTINE ECG W/LEAST 12 LDS TRCG ONLY W/O I&R ECG 12-LEAD Routine 02/04/2020 11:34 AM EDT Incisional hernia with obstruction 02/04/2020 03:34:20 PM ED T Incisional hernia with obstruction [facility] Incisional hernia with obstruction BLOOD COUNT COMPLETE AUTOMATED CBC Routine 0 11:30 AM EDT Incisional hernia with obstruction 02/04/2020 03:30:00 PM ED T Incisional hernia with obstruction [facility] Incisional hernia with obstruction BASIC METABOLIC PANEL CALCIUM TOTAL BASIC METABOLIC PANEL Routi ne 02/04/2020 11:30 AM EDT Incisional hernia with obstruction 02/04/2020 03:30:00 PM ED T Incisional hernia with obstruction [facility] Incisional hernia with obstruction Medical Nutrition Therapy Assmnt Interv Face To Face 15 Min 12/14/2019 12:00:00 AM EDT [facility] ([facility]) Brief Emotional/Behav Assessment W/ Scoring Doc Per Standard Inst 11/18/2019 12:00:00 AM EDT [facility] ([facility]) EST-LEVEL 4 10/06/2019 12:00:00 AM EDT - 10/06/2019 1 2:00:00 AM EDT [facility] ([facility]) Debridement, nails, 6 or more, any method 10/06/2019 12:00:00 AM EDT - 10/06/2019 12:00:00 AM EDT [facility] ([facility]) Results ID Date Data Source [id number] 08/09/2020 02:33:00 PM EST [facility] Name Value Range Interpretation Code Description Data Giovana rce(s) Supporting Document(s) SARS-CoV-2 (COVID 19) NEGATIVE - SARS-CoV-2 (COVID19) [facility] This lab was ordered by [facility] a nd reported by [facility]. ID Date Data Source [id number] 07/31/2020 05:40:00 PM EST [facility] Name Value Range Interpretation Code Description Data Giovana rce(s) Supporting Document(s) SARS coronavirus 2 RNA [Presence] in Res piratory specimen by TYRON with probe detection [facility] This lab was ordered by [facility] a nd reported by [facility]. ID Date Data Source [id number] 06/28/2020 01:51:39 PM EST [facility] Name Value Range Interpretation Code Description Data Giovana rce(s) Supporting Document(s) Progress Note [facility] AKOTTv8fEhPERqGk73/ETLmcSFSxy0XnJTdoCLl1FOidYGZhQ4VaUGH2uG4tRXM4WQqQYoQhJvYsAiGn [facility] [file] ICAgICAgICAgICAgICAgICAgICAgICAgICAgICAgICAgICAgICAgICAgICAgICAgICAgICAgICAgICAg ICAgICAgICAgICAgICAgICAgICAgICANCiAgICAgIC AgICAgICAgICAgICAgICAgICAgICAgICAgICAgICAgICAgICAgICAgICAgICAgICAgICAgICAgICAgIC AgICAgICAgICAgICAgICAgICAgICAgICAgICAgICAgICANCiAgICAgICAgICAgICAgICAgICAgICAgIC AgICAgICAgICAgICAgICAgICAgICAgICAgICAgICAg ICAgICAgICAgICAgICAgICAgICAgICAgICAgICAgICAgICAgICAgICAgICANCiAgICAgICAgICAgICAg ICAgICAgICAgICAgICAgICAgICAgICAgICAgICAgICAgICAgICAgICAgICAgICAgICAgICAgICAgICAg ICAgICAgICAgICAgICAgICAgICAgICAgICANCiAgIC AgICAgICAgICAgICAgICAgICAgICAgICAgICAgICAgICAgICAgICAgICAgICAgICAgICAgICAgICAgIC AgICAgICAgICAgICAgICAgICAgICAgICAgICAgICAgICAgICANCiAgICAgICAgICAgICAgICAgICAgIC AgICAgICAgICAgICAgICAgICAgICAgICAgICAgICAg ICAgICAgICAgICAgICAgICAgICAgICAgICAgICAgICAgICAgICAgICAgICAgICANCiAgICAgICAgICAg ICAgICAgICAgICAgICAgICAgICAgICAgICAgICAgICAgICAgICAgICAgICAgICAgICAgICAgICAgICAg ICAgICAgICAgICAgICAgICAgICAgICAgICAgICANCi AgICAgICAgICAgICAgICAgICAgICAgICAgICAgICAgICAgICAgICAgICAgICAgICAgICAgICAgICAgIC AgICAgICAgICAgICAgICAgICAgICAgICAgICAgICAgICAgICAgICANCiAgICAgICAgICAgICAgICAgIC AgICAgICAgICAgICAgICAgICAgICAgICAgICAgICAg ICAgICAgICAgICAgICAgICAgICAgICAgICAgICAgICAgICAgICAgICAgICAgICAgICANCiAgICAgICAg ICAgICAgICAgICAgICAgICAgICAgICAgICAgICAgICAgICAgICAgICAgICAgICAgICAgICAgICAgICAg ICAgICAgICAgICAgICAgICAgICAgICAgICAgICAgIC ANCjw/bICsC5nyrWPabyN0G6zaOf6JXs8ONW8kc7SlOGMjWPxjlmXiGekROxHbSOXrRmuKCod7YZivIH 4RpOWaI4YjZ9NtWJqwKI2UOHQkVCQqiJNmWKLeARLyEeD1PAIhLGqtRI1StXGvASekJMWzDYFyLyKaHA QgCS6EMNXyE713eoBfDu2SWy1SIiXsWW7otx3CKjgk JLBzBrhPLow0PVuiHB6PfCLmrYOyEWQuUXRWJwLeK0xgv9MyJkjuVXQDPLsbBE3Cq3WhbHViALa+Pg0K FS4vd2ArEEesUXAtUV5wrt1ODHiOJgUfB2WcoDwpUABzv8zvFXNaAE9lhLYkMDB5CLJii2W5IG1zIoRf qkWeh1OrLvHvRqshOPSkIGVmYNJpKg5tQIRsPMGqPi YsWUOFVM2IKDRuGNXfhZWpEEMzXWSXEV0CNJyrCWR4YFTcmxJeeJLhDEzbHY3KQSTvbxCiDmijZSSFEY o+Fn1KQP4zz8YqILgaPZBiTR0hud6UHHnSOrJkI1X9dQKcZ7R5NAzqLy9UZXAtVHBjCgIqFUWOHSjcZI 8WYO7lptZ2CU4ZdPVfKGIqSPDiaPBmEOq4G27edNMc FUwtDN0OBRK+Jey+Yg6NGRNxXVAvMUHxBcKvQSAEJzEeT2JfX1GTe6HlF2MbVB76fTsebcKoMJauMQ6U ZO2zRGUwDZVXWI0RlHOzkP4zxvXjDqSvVZXUOqZcZ33bhVFgDOLwWMS3ALRqKx5XWKSiE5DnetQfiLwr scMoVBCsHNJXUT0AVMkqocKbrFGapHkoYT24uImyEF 3MFx2OOkItFQ6kdx8PcOWtKy9MMSNgLN2QHKWuVQYdJTShFPT9DCOyWdRaKQetYBLhZGJlVPK7QOIrTP RrKD5DSaMgUILiEfU8OFOkDVDsDGRbqy0LSNJfUNYfAfM2CkXhAQKxVTTkDZrvGHLhZPJhWRA1NVRnLV RxRM9ABaFiNFAoSEZ7KMGcVMVpBWWwed7GSKQrGJPq CTB5UbOpMVJfESOzXTeoEUZeOJP4EOSjCOReTIOnMD5EWkDxGKBiMEdlLMTzCRQlNKIigi9CMXPxXEUq IKT5NcWmIMFkNWPuTGnzESXrJYQ5DxF4XMXfWFLtUV9NXoYhPOCvBAn1RHVsMTIaLYPbgu5DQKEtSCYj XGH4MKOtIRKoOCQiFBinTHZtQMN9OvBcVNSyFEWmPH 5QAbOpYQMmJAd1UQmrMTJuXWThnj3KLVRpXWDuJQF7UFEnADYzNELeKWbaVSMqSVIvCVHuQQMqHBGjCE 0KBqFaAOIyKlN5NuswSHTgPAWhov1HUPExJJKnKkQlAWKsYYRvUWJfYLqqCJBvLMVeKNO4WHZaOZZrES 1WYvFgKPZpSaUvXThnQOTsOTZvxz5ZHRRhPCSmTvM1 BSXsCKYwXBDtRVwrBXMtHZIrBAq1TWMpGCVvAH2VUxNbBITlQnP2MAvdTBWiGAWchu6ZILXeKKDaKMXk RzAaGIZtTENaTDihXAGvWXP7Pkm4GJQoDJGtNY4KMrJdWXMvWjBgKFylPWEuPWOlvt3BLORsXMRkWfJ5 GYDdQSNvEPGbECcvXSBrDKZ0VoClPCHjKFFqNT9FGn MlHGSkPvZ8OTfyMWXzZJZgiq9ZqIJejGmnil9GTMgYIf1PnCsuQWYeWPabGi2jzPJuYHFgDFTVMe3Uzs FlKDOkMUVOLRixVQGoUUOaOwHoCtAyReM4TLSnLEM2JKQzIanxBwRoSjHkXNDfGhZ4FWLjCGWjYAJwCL KiV0TrQmyiQYUeFPM8BMXgRRM8QdP+ME5oCMc+Gq6Jf4PmsaI3wcQrDJwhRsUvTg5XZMTXU2IFMz== ID Date Data Source [id number] 06/06/2020 03:12:03 PM [facility] Name Value Range Interpretation Code Description Data Giovana rce(s) Supporting Document(s) Progress Note [facility] KSVCYy9eFvTEZiWc39/QZFzwFOGlb3WlEKmiXDi5PSrwWYDvQ4OvBKJ5bV9vHSQ4WOnSYuSpZiQjZTSd lbm [file] YuG8OCV6BtT6EkJ+ZS1hMOp+Ca0Pg0UjbdS4iiDmWGzeEXFjVx3YEGVQA6WGXy== ID Date Data Source [id number] 05/10/2020 10:14:00 AM EDT [facility] ([facility]) Name Value Range Interpretation Code Description Data Giovana rce(s) Supporting Document(s) Surgical pathology study Laboratory test result [facility]) FINAL DIAGNOSIS Esophagus, below Z-line, biopsy: [...] MD 05/12/2020 1140 ID Date Data Source [id number] 05/09/2020 02:17:55 PM EDT [facility] Name Value Range Interpretation Code Description Data Giovana rce(s) Supporting Document(s) Progress Note [facility] UGOVYj6rFzDHFiSx05/UAAelTZMgw7OiITfyYUe5HIhmXAKmS7YuBCA5sY0rWFS0CGgOGhZhKwNaSELs [facility] [file] ICAgICAgICAgICAgICAgICAgICAgICAgICAgICAgICAgICAgICAgICAgICAgICAgICAgICAgICAgICAg ICAgICAgICAgICAgICAgICAgICAgICAgICAgICAgICAgDQogICAgICAgICAgICAgICAgICAgICAgICAg ICAgICAgICAgICAgICAgICAgICAgICAgICAgICAgIC AgICAgICAgICAgICAgICAgICAgICAgICAgICAgICAgICAgICAgICAgICAgDQogICAgICAgICAgICAgIC AgICAgICAgICAgICAgICAgICAgICAgICAgICAgICAgICAgICAgICAgICAgICAgICAgICAgICAgICAgIC AgICAgICAgICAgICAgICAgICAgICAgICAgDQogICAg ICAgICAgICAgICAgICAgICAgICAgICAgICAgICAgICAgICAgICAgICAgICAgICAgICAgICAgICAgICAg ICAgICAgICAgICAgICAgICAgICAgICAgICAgICAgICAgICAgDQogICAgICAgICAgICAgICAgICAgICAg ICAgICAgICAgICAgICAgICAgICAgICAgICAgICAgIC AgICAgICAgICAgICAgICAgICAgICAgICAgICAgICAgICAgICAgICAgICAgICAgDQogICAgICAgICAgIC AgICAgICAgICAgICAgICAgICAgICAgICAgICAgICAgICAgICAgICAgICAgICAgICAgICAgICAgICAgIC AgICAgICAgICAgICAgICAgICAgICAgICAgICAgDQog ICAgICAgICAgICAgICAgICAgICAgICAgICAgICAgICAgICAgICAgICAgICAgICAgICAgICAgICAgICAg ICAgICAgICAgICAgICAgICAgICAgICAgICAgICAgICAgICAgICAgDQogICAgICAgICAgICAgICAgICAg ICAgICAgICAgICAgICAgICAgICAgICAgICAgICAgIC AgICAgICAgICAgICAgICAgICAgICAgICAgICAgICAgICAgICAgICAgICAgICAgICAgDQogICAgICAgIC AgICAgICAgICAgICAgICAgICAgICAgICAgICAgICAgICAgICAgICAgICAgICAgICAgICAgICAgICAgIC AgICAgICAgICAgICAgICAgICAgICAgICAgICAgICAg DQogICAgICAgICAgICAgICAgICAgICAgICAgICAgICAgICAgICAgICAgICAgICAgICAgICAgICAgICAg FRElSSNaIDFmUXGhYICeXVUqZZAuTMNoZDEwKRByTCTvKCPsBELyKYHgDVj4N5gkEKSwILTaMY5tTYq9 Jz8+YNvMPmJqXSC7ibBjbS0NVM4tq9AyDKltSRQps0 UpIHv8JT0QHFCkUApxSI5FTQwpib3NBTMoGWPjzXUJi7qyYcOoZDL8PLWiSkwuBG1KSPHuV7yihsDxOH AnEBPEJQrdKZDYDIjuJWCCGNTtTYApPhNuLMkxEJ2Au0JhpTI2XMs+Nu7LSR3mc1HtJEpyPSMvWV2nil 3DJMqYYcWlJ2ZeorJ4OIKsXBKvSr7BHCYbKSZleSLp LdYrWIYIEyKhX2QpfA75JPKOSi4+AZijurPkPoaICfSyAEVtb5PdNWt1ZQ6AGGJbZAl5gPGpGYAlB5Ir m0MvGm55INEbGxmcP6ZbmUnwehTBZLXrCFaxhFryNT8DEOG3WSVoZvCeNiZaBnGeASW7GQLpEM3tHUia FV3VTLQ5LYxtOKVbKENqU4iPPhFsWOIuAFKihQhdTH 8IUnFfP1YobgVwlJRpXRUzLVIKSi8+SBlefmDnKxuTZcOzTVVxp4MvFQl1DY0ITVKuKWacAL7HWWElcM 2tXSywLL5PNiEpFAZvPMRGRjIsH31ybRKlQLf6O3KqWlXeLETkDltjTLLhWBurPhCoNRQeDyOuJRmcEK 4+ID4+JKahUE4IYPhsvzKnIMBbPg8YOSLtWXNkJV3k QUKsHMBxH6B4sDpeXPKXWyPpG1kojxhtXK1iNEDtP692kAawmeIoJWVtQOEnOa2YKSQxTJZ4XZCnkDVd GpAtWUACXEvmDP2JnVKhBUN0kI8kLXntPQKkLXMiT6sWTvLekYnwXW81lZrouaWfvJSmPEi+Hx0TIM8h e3QiWJg2fbWxSNwiXUP4GJjaEOSsADVrLVDpMFV9XG U4OYPAGxLsZDNrRWAdHFzrRMHlKZGnuv6ZVCXoQGI7Hlb2RJDeFGJeYVIbXNooEZYrJBT5LUy1YYGrPG QbIF2AAfAzJSKzKRLhJHksMDMwAXEeyp8ZZQIiVZIeUiP1MbDzNAUqURMyUTveOKJpSLAsLURiTNHgTM XyZF3NJlIeNQIcIIvxYEDlYYEiBYUtma2NWXZcZOEt MkH7HbYbCBCwEQYxSApsPNFrJARsGqH8UKBtGXUgNT6FHiVgAGCfVIP6XpCtOJTzFLXzrk3DTHZhQWNq WiEwPRAnPALwYSXlWCylJWYzVSQyXaQ4BSXoOLPhBY6ZPxZsQBZcILIfUAJoIJTxUEOipi2LJBBaTGHc JVI6CYFuPSUbRMJrFNtyBHWxLPO6JnH1POCuHETzUD 3WTwHaNAPdNVS1ZpPoLWOvVOKchp7GIQHqWMYmCRbhUTMxYWJiWXKmISzjNADwQJJ8LWVoFILdTLWlQU 6IAvKvILEpDQnwKVSzGYWeCFSwoo8NGVHrXWV6DAw3NbSoMRKeNYKtYUejIJNmSAZrWkNnIHDtKPYeDM 0FKpXyOVNkPUNaXsOoBGCmQVCgit6ZDCKxWMN3EZTp NgVyVQSoFXVqHCbkEMBiIRCdGADjXSGbFFEqTP4DYqTdHOHbABUkNCDuHRZbTGSqtg7TRDMxVRP3ImWb FiNqTWPeVMFwIVzkRHJtMWDdYOW4PIJhHYZfTE9HEiAnZKGkJEE3WZIuXKSiLZBaih5TBYZgMYC6Kikq FvMwGTLoAGFaJHkdGKKvDDA5NkR9SXCbHCVsWP4MFf WiTTNnKHZ4QFGnIYUeFXXjdo8BTQSyZFF5IMr9CkDgEHQnCRXaGXpuHLAvPQC5ZPC9HVQdKZHkVX7SNk ZuYPrhNNAERsd1NLngQ5h1YVJeWC9WU9Rpf6PnHxPdZHXKHBrkOM7qzfSfBCJqUo5FT8eCHgz3GFZhT6 LcXwSwQPH6ZLktYuElKlK7MrieHdYrPdU4NR4vCFDn BOZ0YOOmOlN2MUBwVJH4JRYqFBOoVKSaY4LnNQvqRlAvWM4YCt3RWeH6IGR5pNUzMh4EOAWmOILHJvFb QK9YBDd= ID Date Data Source [id number] 05/05/2020 11:55:00 AM EDT [facility] Name Value Range Interpretation Code Description Data [facility] rce(s) Supporting Document(s) SARS coronavirus 2 RNA [facility] This lab was ordered by [facility] and reported by [facility]. ID Date Data Source [id number] 04/27/2020 06:09:28 AM EDT [facility] XR FOOT 3 OR MORE VIEWS [id number] RESUL TInterpreted by:Fallon Smith ankle 2 views [...] Name Value Range Interpretation Code Description Data [facility] rce(s) Supporting Document(s) ID Date Data Source [id number] 04/27/2020 06:09:28 AM EDT [facility] XR ANKLE 2 VIEWS [id number] RESULTInterp reted by:Fallon Smith ankle 2 views [...] rce(s) Supporting Document(s) ID Date Data Source [id number] 04/26/2020 04:20:41 PM T [facility] Name Value Range Interpretation Code Description Data Giovana rce(s) Supporting Document(s) Progress Note [facility] EVPROa0uHvYHGfCy21/WTCycUWFvt9OrWYfqDGt0MNlbGXLlY5MyCQF9qJ3zEGQ0JPcQPgZlHuMxTRUc lbm [file] ibIcAiMW4HCg3EIzQ6KCH3hKEaNu4UVfQ2OomQZsVzPS4LCUb= ID Date Data Source [id number] 03/29/2020 12:20:00 [place] [address] PHONE: [phone] FAX: [phone] Name .................. : [place] Acct Number.................. : [id number] ROOM. ................. : Number ................... : [id number] Stay type ............. : CLINIC Discharge Date......... ... : 03/27/20 Admit Date ......... : 03/27/20 Admit Phys .................... : HESTER HARD Date of ....... : 1990 Family Phys ................... : HESTER HARD Phone .................. : [phone] Age ................................ : 29 Film# .................. .:[id number] Sex ................................. : M Unsigned transcriptions are preliminary reports and do not represent a medical or legal document CT ABD & PELV W/O ORAL W/O IV [id number] COMPLETE:03/27/20 14:16 RLB [id number] (REASON FOR ABDOMEN: LOWER ABD PAIN CT [...] 1 of 2 [facility] [address] [place] [address] PHONE: [phone] FAX: [phone] Name .................. : GAVIOTA Madison Acct Number.................. : [id number] ROOM. ................. : MR Number ................... : [id number] Stay type ............. : CLINIC Discharge Date......... ... : 03/27/20 Admit Date ......... : 03/27/20 Admit Phys .................... : HESTER HARD Date of ....... : 1990 Family Phys ................... : [employer] HARD Phone .................. : [phone] Age ................................ : 29 Film# .................. .:[id number] Sex ................................. : M Unsigned transcriptions are preliminary reports and do not represent a medical or legal document CT ABD & PELV W/O ORAL W/O IV [id number] COMPLETE:03/27/20 14:16 RLB [id number] (REASON FOR ABDOMEN: LOWER ABD PAIN Electronically Reviewed and Signed By Yousif Bernardo M.D. , 03/29/20 12:20, [place] Transcribe Initials: GUCCI , Transcribe Date: 03/27/20 23:48, Dictation Date: Page 2 of 2 Name Value Range Interpretation Code Description Data Giovana rce(s) Supporting Document(s) ID Date Data Source [id number] 03/22/2020 03:26:00 PM EDT [facility] 1 OrderSheet [facility] Emergency Department [address] [place] [address] Phone #: ext- [phone] 03/22/2020 15:24 Patient: NICK TRUJILLO Sex: M [...] rce(s) Supporting Document(s) ID Date Data Source [id number] 03/22/2020 03:26:00 PM EDT [facility] 1 Medication Reconciliation Report [facility] Emergency Department [address] [place] [address] Phone #: ext- [phone] 03/22/2020 15:24 Patient: [...] ODT Oral, prn 2 Medication Reconciliation Report [facility] Emergency Department [address] [place] [address] Phone #: ext- [phone] 03/22/2020 15:24 Patient: NICK TRUJILLO Sex: M : 1990 Age: 29yThe source(s) of the original Home Medication information:patientThe following Medications were given to the patient in the Emergency Department:Ativan [IM] IM 1 mg, administered: 03/22/2020 4:03:00 PMThe following Medications were prescribed to the patient:None. Name Value Range Interpretation Code Description Data Giovana rce(s) Supporting Document(s) ID Date Data Source [id number] 03/22/2020 03:26:00 PM EDT [place] [address] Medication Administration Record [facility] Emergency Department [address] [place] [address] Phone #: ext- [phone] 03/22/2020 15:24 Patient: NICK TRUJILLO Sex: M : 1990 Age: 29yWeight: 190.5 kgHeight/Length: 71 inBMI: 58.6ALLERGIES: Dilantin, Naproxen, Naproxsyn, Tylenol with codein Date/Time Medication Administered Medication OrderedGiven ATIVAN [IM] (LORAZEPAM) Ativan IM 1 mg (HIGH ALERT16:03 03/22/2020 Dose: 1 mg IM MEDICATION)Enedina Banda R.N. Name Value Range Interpretation Code Description Data Giovana rce(s) Supporting Document(s) ID Date Data Source [id number] 03/22/2020 03:26:00 PM EDT [facility] 1 General Instructions [facility] Emergency Department [address] [place] [address] Phone #: ext- [phone] 03/22/2020 15:24 Patient: NICK TRUJILLO [facility]#: [id number] Sex: M : 1990 Age: 29yChronic periumbilical abdominal pain, now resolved. (recurrent).INSTRUCTIONSDrink plenty of fluids. Avoid alcohol and NSAIDS. NSAIDS include aspirin, ibuprofen (Advil) and naproxen(Aleve). Avoid fatty, fried/greasy, lactose-containing (such as milk, cheese and ice cream), salty and spicyfoods. No alcohol. Do not smoke.Warnings: Further evaluation is necessary ([facility]). It is very important to [...] provided to patient viapaper. 2 General Instructions [facility] Emergency Department [address] [place] [address] Phone #: ext- [phone] 03/22/2020 15:24 Patient: NICK TRUJILLO Sex: M : 1990 Age: 29yUnderstanding of the discharge instructions verbalized by patient. Expected course of illness, dischargeinstructions, activity level, diet, follow-up appointment and risks and benefits of treatment reviewed withpatient and understanding verbalized. Agrees to plan of care.Follow-up with: [facility], , , [address] [place] [address], [address] Follow up in five days even if [...] options include broth, soup, 3 General Instructions [facility] Emergency Department [address] [place] [address] Phone #: ext- [phone] 03/22/2020 15:24 Patient: [...] chest, arm, back, neck or jaw pain [id number] [employer]. [address] [place] [address], [place] [address]. All rights reserved. This information is not intended as asubstitute for professional medical care. Always follow your healthcare professional's instructions. You have been given the following additional information: Unknown Causes of Abdominal Pain (Male)(Electronically signed by Cleo Gruber M.D. 03/22/2020 17:36) Name Value Range Interpretation Code Description Data Giovana rce(s) Supporting Document(s) ID Date Data Source [id number] 03/22/2020 03:26:00 PM EDT [facility] 1 Clinical Report - Nurses [facility] Emergency Department [address] [place] [address] Phone #: ext- [phone] 03/22/2020 15:24 Patient: [...] Osei R.N. 2 Clinical Report - Nurses [facility] Emergency Department [address] [place] [address] Phone #: ext- [phone] 03/22/2020 15:24 Patient: [...] Osei R.N. 3 Clinical Report - Nurses [facility] Emergency Department [address] [place] [address] Phone #: ext- [phone] 03/22/2020 15:24 Patient: NICK TRUJILLO Sex: M : 1990 Age: 29y 15:59 03/22/20. BP: 141/76. MAP: 97. HR: 98. RR: 20. O2 saturation: 100%. --15:59 03/22/20 [facility] organistEnedina ER Tech1 16:03 03/22/2020 Ativan (LORazepam) IM [...] Patient verbalized understanding. Written instructions provided in Tajik. The patient was discharged home. He left ambulatory and via private vehicle. --17:24 03/22/20 Enedina Banda R.N.Locked/Released at 03/22/2020 17:25 by Enedina Banda R.N. Name Value Range Interpretation Code Description Data Giovana rce(s) Supporting Document(s) ID Date Data Source [id number] 03/22/2020 03:26:00 PM EDT [facility] 1 Clinical Report - Physicians/Mid Levels [facility] Emergency Department [address] [place] [address] Phone #: ext- [phone] 03/22/2020 15:24 Patient: NICK TRUJILLO Sex: M [...] umbilical hernia repair several weeks ago at [facility], saw his surgeon last week [...] Cholecystectomy. 2 Clinical Report - Physicians/Mid Levels [facility] Emergency Department [address] [place] [address] Phone #: ext- [phone] 03/22/2020 15:24 Patient: NICK TRUJILLO [facility]#: [id number] Sex: M : 1990 Age: 29y Hernia [...] pulses 3 Clinical Report - Physicians/Mid Levels [facility] Emergency Department [address] [place] [address] Phone #: ext- [phone] 03/22/2020 15:24 Patient: NICK TRUJILLO Sex: M [...] 8.2) 4 Clinical Report - Physicians/Mid Levels [facility] Emergency Department [address] [place] [address] Phone #: ext- [phone] 03/22/2020 15:24 Patient: [...] be referred to our surgeon here at [facility] for his chronic, recurrent abdominal pain, [...] (recurrent). 5 Clinical Report - Physicians/Mid Levels [facility] Emergency Department [address] [place] [address] Phone #: ext- [phone] 03/22/2020 15:24 Patient: NICK TRUJILLO Sex: M : 1990 Age: 29yINSTRUCTIONS Drink plenty of fluids. Avoid alcohol and NSAIDS. NSAIDS include aspirin, ibuprofen (Advil) and naproxen (Aleve). Avoid fatty, fried/greasy, lactose-containing (such as milk, cheese and ice cream), salty and spicy foods. No alcohol. Do not smoke. Warnings: Further evaluation is necessary ([facility]). It is very important to [...] plan of care. Follow-up with: [facility], , , [address] [place] [address], [address] Follow up in five days even if well. Call for an appointment. Reason for referral: evaluation and treatment. Summary of care provided to patient via paper. 6 Clinical Report - Physicians/Mid Levels [facility] Emergency Department [address] [place] [address] Phone #: ext- [phone] 03/22/2020 15:24 Patient: NICK TRUJILLO Sex: M : 1990 Age: 29y(Electronically signed by Cleo Gruber M.D. 03/22/2020 17:36) Name Value Range Interpretation Code Description Data Giovana rce(s) Supporting Document(s) ID Date Data Source [id number] 03/22/2020 04:34:00 PM EDT [facility] Name Value Range Interpretation Code Description Data Giovana rce(s) Supporting Document(s) Lipase [Enzymatic activity/volume] in Serum or Plasma 34 U/L 13 - 60 [facility] ID Date Data Source [id number] 03/22/2020 04:34:00 PM EDT [facility] Name Value Range Interpretation Code Description Data Giovana rce(s) Supporting Document(s) COMPREHENSIVE METABOLIC PANEL [facility] COMPREHENSIVE METABOLIC PANEL Sodium [Moles/volume] in Serum or Plasma 140 mEq/L 134 - 153 [facility] Potassium [Moles/volume] in Serum or Plasma 4.2 mEq/L 3.6 - 5.0 [facility] Chloride [Moles/volume] in Serum or Plasma 106 mEq/L 98 - 107 [facility] Carbon dioxide, total [Moles/volume] in Serum or Plasma 24 MEQ/L 22 - 30 [facility] Glucose [Mass/volume] in Serum or Plasma 110 MG/DL 65 - 110 [facility] BUN 12 MG/DL 7 - 21 [facility] al Creatinine [Mass/volume] in Serum or Plasma 0.9 MG/DL 0.7 - 1.5 [facility] BUN/CREAT 13 8 - 27 [facility] al Protein [Mass/volume] in Serum or Plasma 7.7 G/DL 6.3 - 8.2 [facility] Albumin [Mass/volume] in Serum or Plasma 4.1 G/DL 3.9 - 5.0 [facility] Globulin [Mass/volume] in Serum by calculation 3.6 GM/DL 2.4 - 3.2 H [facility] A/G RATIO 1.1 0.8 - 2.0 [facility] Calcium [Mass/volume] in Serum or Plasma 9.0 MG/DL 8.4 - 10.2 [facility] Bilirubin.total [Mass/volume] in Serum or Plasma <0.7 MG/DL 0.2 - 1.3 [facility] Alkaline phosphatase [Enzymatic activity/volume] in Serum or Plasma 83 U/L 38 - 126 [facility] Aspartate aminotransferase [Enzymatic activity/volume] in Serum or Plasma 27 U/L 5 - 40 [facility] Alanine aminotransferase [Enzymatic activity/volume] in Seru m or Plasma 37 U/L 7 - 56 [facility] Anion gap 3 in Serum or Plasma 10.0 mmol/L 8.0 - 16.0 [facility] AGE 29 yrs [facility] al NON-AA GFR >60 mL/min [facility] ital AFR AMER GFR >60 mL/min [facility] Ho spital Male GFR In [...] >32 mL/min Normal ID Date Data Source [id number] 03/22/2020 04:15:00 PM EDT [facility] Name Value Range Interpretation Code Description Data Giovana rce(s) Supporting Document(s) CBC W/AUTOMATED DIFF [facility] COMPLETE BLOOD COUNT Leukocytes [#/volume] in Blood by Automated count 9.6 10^3/uL 4.2 - 1 1.0 [facility] Erythrocytes [#/volume] in Blood by Automated count 5.41 10^6/uL 4. 50 - 6.30 [facility] Hemoglobin [Mass/volume] in Blood 15.9 g/dL 14.0 - 16.0 [facility] Hematocrit [Volume Fraction] of Blood by Automated count 48.7 % 4 1.0 - 51.0 [facility] Erythrocyte mean corpuscular volume [Entitic volume] by Auto mated count 90.0 fL 80.0 - 94.0 [facility] Erythrocyte mean corpuscular hemoglobin [Entitic mass] by Automated count 29.4 pg 27.0 - 34.0 [facility] Erythrocyte mean corpuscular hemoglobin concentration [Mass/volume] by Automated count 32.6 g/dL 31.0 - 36.0 [facility] Erythrocyte distribution width [Ratio] by Automated count 14.4 % 11.5 - 14.8 [facility] Platelets [#/volume] in Blood by Automated count 197 10^3/uL 150 - 45 0 [facility] Platelet mean volume [Entitic volume] in Blood by Automated count 9.0 fL 7.4 - 10.4 [facility] Neutrophils/100 leukocytes in Blood by Automated count 63.6 % 37. 0 - 80.0 [facility] Lymphocytes/100 leukocytes in Blood by Manual count 22.2 % 25.0 - 40.0 L [facility] Monocytes/100 leukocytes in Blood by Automated count 9.9 % 3.0 - 8.0 H [facility] Eosinophils/100 leukocytes in Blood by Automated count 3.7 % 0.0 - 7.0 [facility] Basophils/100 leukocytes in Blood by Automated count 0.3 % 0.0 - 2.0 [facility] %IG 0.3 % 0.0 - 0.0 H [facility] Hospit al %NRBC 0.0 % 0.0 - 0.0 [facility] Neutrophils [#/volume] in Blood by Automated count 6.13 10^3/uL 2.00 - 6.90 [facility] Lymphocytes [#/volume] in Blood by Automated count 2.14 10^3/uL 0.60 - 3.40 [facility] Monocytes [#/volume] in Blood by Automated count 0.95 10^3/uL 0.00 - 0.90 H [facility] Eosinophils [#/volume] in Blood by Automated count 0.36 10^3/uL 0.00 - 0.70 [facility] Basophils [#/volume] in Blood by Automated count 0.03 10^3/uL 0.00 - 0.20 [facility] #IG 0.03 10^3/uL 0.00 - 0.10 [facility] H ospital #NRBC 0.00 10^3/uL 0.00 - 0.00 [facility] H ospital MANUAL DIFF NOT INDICATED [facility] RBC MORPH NOT INDICATED [facility] spital ID Date Data Source [id number] 03/13/2020 02:06:00 PM EDT [facility] [address] [place] [address] PHONE: [phone] FAX: [phone] Name .................. : GAVIOTA ROMERO [place] Acct Number.................. : [id number] ROOM. ................. : TR-08 Number ................... : [id number] Stay type ............. : E/R Discharge Date......... ... : Admit Date ......... : 03/09/20 Admit Phys .................... : TALIA Madison Date of ....... : 1990 Family Phys ................... : HESTER HARD Phone .................. : [phone] Age ................................ : 29 Film# .................. .:[id number] Sex ................................. : M Unsigned transcriptions are preliminary reports and do not represent a medical or legal document CT ABD & PELV W/ORAL ONLY [id number] COMPLETE:03/09/20 21:11 KJE [id number] Reason(s): Abdominal Pain CT OF THE ABDOMEN [...] 75 Isovue 370 Page 1 of 2 [facility] [address] [place] [address] PHONE: [phone] FAX: [phone] Name .................. : GAVIOTA Madison Acct Number.................. : [id number] ROOM. ................. : TR-08 MR Number ................... : [id number] Stay type ............. : E/R Discharge Date......... ... : Admit Date ......... : 03/09/20 Admit Phys .................... : TALIA Madison Date of ....... : 1990 Family Phys ................... : [employer] HARD Phone .................. : [phone] Age ................................ : 29 Film# .................. .:[id number] Sex ................................. : M Unsigned transcriptions are preliminary reports and do not represent a medical or legal document CT ABD & PELV W/ORAL ONLY [id number] COMPLETE:03/09/20 21:11 KJE [id number] Reason(s): Abdominal Pain Method of administration: Intravenous Electronically Reviewed and Signed By Yousif Bernardo M.D. , 03/13/20 14:06, [place] Transcribe Initials: GUCCI , Transcribe Date: 03/09/20 23:30, Dictation Date: Copy for: EMERGENCY DEPT via modem Copy for: 710 MED REC DISCHARGED Page 2 of 2 Name Value Range Interpretation Code Description Data Giovana rce(s) Supporting Document(s) ID Date Data Source [id number] 03/09/2020 05:46:00 PM EDT [facility] 1 OrderSheet [facility] Emergency Department [address] [place] [address] Phone #: ext- [phone] 03/09/2020 17:13 Patient: NICK TRUJILLO Sex: M [...] Description Priority Entered Acknowledged Initialed 2 OrderSheet [facility] Emergency Department [address] [place] [address] Phone #: ext- [phone] 03/09/2020 17:13 Patient: [...] rce(s) Supporting Document(s) ID Date Data Source [id number] 03/09/2020 05:46:00 PM EDT [facility] 1 Medication Reconciliation Report [facility] Emergency Department [address] [place] [address] Phone #: ext- [phone] 03/09/2020 17:13 Patient: [...] ODT Oral, prn 2 Medication Reconciliation Report [facility] Emergency Department [address] [place] [address] Phone #: ext- [phone] 03/09/2020 17:13 Patient: NICK TRUJILLO Sex: M : 1990 Age: 29yThe source(s) of the original Home Medication information:Not obtained.The following Medications were given to the patient in the Emergency Department:None.The following Medications were prescribed to the patient:None. Name Value Range Interpretation Code Description Data [facility](s) Supporting Document(s) ID Date Data Source [id number] 03/09/2020 05:46:00 PM EDT [facility] 1 Medication Administration Record [facility] Emergency Department [address] [place] [address] Phone #: ext [phone] 03/09/2020 17:13 Patient: NICK TRUJILLO Sex: M : 1990 Age: 29yWeight: 179.1 kgHeight/Length: 71 inBMI: 55.1ALLERGIES: Naproxen, Dilantin, Tylenol with codiene, Naproxsyn, Tylenol with codeinDate/Time Medication Administered Medication Ordered Name Value Range Interpretation Code Description Data [facility](s) Supporting Document(s) ID Date Data Source [id number] 03/09/2020 05:46:00 PM EDT [facility] 1 General Instructions [facility] Emergency Department [address] [place] [address] Phone #: ext [phone] 03/09/2020 17:13 Patient: NICK TURJILLO Sex: M : 1990 Age: 29yChronic abdominal [...] when you follow up. 2 General Instructions [facility] Emergency Department [address] [place] [address] Phone #: ext- [phone] 03/09/2020 17:13 Patient: [...] red or black color) 3 General Instructions [facility] Emergency Department [address] [place] [address] Phone #: ext- [phone] 03/09/2020 17:13 Patient: NICK TRUJILLO Sex: M : 1990 Age: 29y Jaundice (yellow color of eyes and skin) New onset of weakness, dizziness or fainting New onset of chest, arm, back, neck or jaw pain [id number] [employer] [place] [address]. All rights reserved. This information is not [...] bloating Feeling full quickly 4 General Instructions [facility] Emergency Department [address] [place] [address] Phone #: ext- [phone] 03/09/2020 17:13 Patient: [...] dizzy Shortness of breath 5 General Instructions [facility] Emergency Department [address] [place] [address] Phone #: ywr- [phone] 03/09/2020 17:13 Patient: NICK TRUJILLO Sex: M : 1990 Age: 29y Unexplained weight loss Fever of 100.4F (38C) or higher, or as directed by your healthcare provider 2503-7615 [employer]. [address] [place] [address]. All rights reserved. This information is not [...] rce(s) Supporting Document(s) ID Date Data Source [id number] 03/09/2020 05:46:00 PM EDT [facility] 1 Clinical Report - Nurses [facility] Emergency Department [address] [place] [address] Phone #: ext- [phone] 03/09/2020 17:13 Patient: NICK TRUJILLO Sex: M : 1990 Age: 29yTRIAGEArrived by EMS. Historian: patient. ( PT HAD HERNIA SURGERY 4 WEEKS AGO AND HE SAYS ITRHURTS ALOT. NO DRAINAGE. PT HAS APPT NEXT WITH SURGEON-DR. FINNEY IN [place].PROCEDURE [facility] T [facility]).Triage time: 17:14 03/09/2020. Acuity: LEVEL 3.Chief Complaint: ABDOMINAL PAIN.Alert.The patient has had abdominal pain.Treatment TELECOM ENGINEER:None. --17:18 03/09/20 Enedina Banda R.N.17:14 03/09/20. BP: [...] Banda R.N.Naproxsyn. 2 Clinical Report - Nurses [facility] Emergency Department [address] [place] [address] Phone #: ext- [phone] 03/09/2020 17:13 Patient: [...] treatment room. --17:18 03/09/20 Enedina Banda R.N.PHYSICAL [id number]:29 03/09/20. To room via stretcher.GENERAL / NEURO [...] RR: 16. O2 saturation: 97%. --18:27 03/09/20 [employer] organistEnedina, Tech1 18:30 03/09/20. Patient gowned. Head of bed elevated 75 degrees. Two patient identifiers checked. Call light placed in reach. Bed placed in lowest position. Brakes of bed on. Patient ready for evaluation- chart flagged. --18:30 03/09/20 Phillip Drummond RN 3 Clinical Report - Nurses [facility] Emergency Department [address] [place] [address] Phone #: ext- [phone] 03/09/2020 17:13 Patient: NICK TRUJILLO Sex: M [...] --23:56 03/09/20 Bean Peace RN.DISPOSITION / DISCHARGE [place] Coma Scale: 15- eyes open- spontaneous (4); best verbal response- oriented (5); best motor response- obeys commands (6). Condition at departure: improved. No learning barriers present. Reviewed referral to family practice and a wine consultant for followup. Reviewed need for increased fluid intake. Activity restrictions (rest) reviewed. Patient verbalized understanding. Written instructions provided in Tajik. The patient was discharged home. He left [...] Peace RN. 4 Clinical Report - Nurses [facility] Emergency Department [address] [place] [address] Phone #: ext [phone] 03/09/2020 17:13 [id number] Sex: M : 1990 Age: 29yLocked/Released at 03/10/2020 00:45 by Bean Peace RN Name Value Range Interpretation Code Description Data Giovana rce(s) Supporting Document(s) ID Date Data Source [id number] 03/09/2020 05:46:00 PM EDT [facility] 1 Clinical Report - Physicians/Mid Levels [facility] Emergency Department [address] [place] [address] Phone #: ext- [phone] 03/09/2020 17:13 Patient: NICK TRUJILLO [facility]#: [id number] Sex: M : 1990 Age: 29y Time Seen: 18:33 03/09/2020. Historian- patient. Disposition decision: 00:11 03/10/2020.HISTORY OF PRESENT ILLNESS Chief Complaint: ABDOMINAL PAIN. (29 year old morbuidly obese patient with abdominal pain past few weeks. had a cholecystectomy a nd later umbilical hernia repair done also at [facility]. has an appointment with f/u with surgeon [...] Repair. 2 Clinical Report - Physicians/Mid Levels [facility] Emergency Department [address] [place] [address] Phone #: ext- [phone] 03/09/2020 17:13 [facility]: [id number] Sex: M : 1990 Age: 29y Tonsillectomy. [...] sounds 3 Clinical Report - Physicians/Mid Levels [facility] Emergency Department [address] [place] [address] Phone #: ext- [phone] 03/09/2020 17:13 Patient: [...] Exam CT ABD //T// PELV [place] [address] PHONE: [phone] FAX: [phone] Name .................. : GAVIOTA Madison Acct Number.................. : [id number] ROOM. ... .............. : TR-08 MR Number ................... : [id number] Stay type ............. : E/R Discharge Date......... ... : Admit Date ......... : 03/09/20 Admit Phys .................... : TALIA Madison Date of ....... : 1990 Family Phys ................... : HESTER HARD Phone .................. : [phone] Age ................................ : 29 Film# .................. .:[id number] Sex ................................. : M Unsigned transcriptions are [...] thickening. 4 Clinical Report - Physicians/Mid Levels [facility] Emergency Department [address] [place] [address] Phone #: ext- [phone] 03/09/2020 17:13 Patient: NICK TRUJILLO Sex: M [...] mL: 75 Isovue 370 Page 1of 2 [facility] [address] [place] [address] PHONE: [phone] FAX: [phone] Name .................. : GAVIOTA Madison Acct Number.................. : [id number] ROOM. ................. : TR-08 Number ................... : [id number] Stay type ............. : E/R Discharge Date......... ... : Admit Date ......... : 03/09/20 Admit Phys .................... : TALIA Madison Date of ....... : 1990 Family Phys ................... : HESTER HARD Phone .................. : [phone] Age ..................... ........... : 29 Film# .................. .:[id number] Sex ................................. : M Unsigned transcriptions are [...] n 5 Clinical Report - Physicians/Mid Levels [facility] Emergency Department [address] [place] [address] Phone #: ext- [phone] 03/09/2020 17:13 Patient: [...] Male GFR Interprentation 20-49 yrs >60 mL/min Mkcpjx21-02 yrs >56 mL/min Normal 60-69 yrs >49 mL/min Normal 70-79yrs>42 mL/min Normal 80 and above >35 mL/min Normal Female GFRInterpretation 20-39 yrs >60 mL/min Normal 40-49 yrs >58 mL/minNormal 50-59 yrs >51 mL/min Normal 60-69 yrs >45 mL/min Mpocdn94-20 yrs >39 mL/min Normal 80 and above >32 mL/min NormalLipase: (KAVITA: 03/09/2020 19:10) ( [facility] 03/09/2020 19:35) Final results Test Result Flag [...] 51.0) 6 Clinical Report - Physicians/Mid Levels [facility] Emergency Department [address] [place] [address] Phone #: ext- [phone] 03/09/2020 17:13 Patient: NICK TRUJILLO Sex: M [...] an appointment with his surgeon at [facility] next week, advised to keep the appointment, return if any symptoms. Patient/family counseled. Old medical records ordered. Disposition: Discharged home in good and improved cond ition (00:11 Mar 10 2020). Condition: stable. 7 Clinical Report - Physicians/Mid Levels [facility] Emergency Department [address] [place] [address] Phone #: ext- [phone] 03/09/2020 17:13 Patient: NICK TRUJILLO Sex: M [...] rce(s) Supporting Document(s) ID Date Data Source [id number] 03/09/2020 07:33:00 PM EDT [facility] Name Value Range Interpretation Code Description Data [facility] rce(s) Supporting Document(s) [facility] URINALYSIS SOURCE R [facility] al COLOR yellow NORMAL: Yellow [facility] ospital CLARITY clear NORMAL: Clear [facility] Ho spital Specific gravity of Urine by Test strip 1.010 1.001 - 1.030 [facility] pH 7 5 - 9 [facility] al Glucose [Mass/volume] in Urine by Test strip NORM NORMAL: Negat [facility] Bilirubin.total [Presence] in Urine by Test strip NEG NORMAL: Negative [facility] Ketones [Presence] in Urine by Test strip NEG NORMAL: Negative [facility] Protein [Mass/volume] in Urine by Test strip NEG NORMAL: Negat rebekah [facility] Nitrite [Presence] in Urine by Test strip NEG NORMAL: Negative [facility] BLOOD NEG NORMAL: Negative [facility] Leukocyte esterase [Presence] in Urine by Test strip NEG MILAGROS L: Negative [facility] Urobilinogen [Mass/volume] in Urine by Test strip NOR less vanessa n 1.0 mg/dL [facility] MICROSCOPIC Not Indicate [facility] ospital ID Date Data Source [id number] 03/09/2020 07:38:00 PM EDT [facility] Name Value Range Interpretation Code Description Data Giovana rce(s) Supporting Document(s) COMPREHENSIVE METABOLIC PANEL [facility] COMPREHENSIVE METABOLIC PANEL Sodium [Moles/volume] in Serum or Plasma 142 mEq/L 134 - 153 [facility] Potassium [Moles/volume] in Serum or Plasma 3.8 mEq/L 3.6 - 5.0 [facility] Chloride [Moles/volume] in Serum or Plasma 106 mEq/L 98 - 107 [facility] Carbon dioxide, total [Moles/volume] in Serum or Plasma 21 MEQ/L 22 - 30 L [facility] Glucose [Mass/volume] in Serum or Plasma 118 MG/DL 65 - 110 H [facility] BUN 11 MG/DL 7 - 21 [facility] al Creatinine [Mass/volume] in Serum or Plasma 0.9 MG/DL 0.7 - 1.5 [facility] BUN/CREAT 12 8 - 27 [facility] al Protein [Mass/volume] in Serum or Plasma 7.8 G/DL 6.3 - 8.2 [facility] Albumin [Mass/volume] in Serum or Plasma 4.4 G/DL 3.9 - 5.0 [facility] Globulin [Mass/volume] in Serum by calculation 3.4 GM/DL 2.4 - 3.2 H [facility] A/G RATIO 1.3 0.8 - 2.0 [facility] Calcium [Mass/volume] in Serum or Plasma 9.2 MG/DL 8.4 - 10.2 [facility] Bilirubin.total [Mass/volume] in Serum or Plasma <0.7 MG/DL 0.2 - 1.3 [facility] Alkaline phosphatase [Enzymatic activity/volume] in Serum or Plasma 98 U/L 38 - 126 [facility] Aspartate aminotransferase [Enzymatic activity/volume] in Serum or Plasma 20 U/L 5 - 40 [facility] Alanine aminotransferase [Enzymatic activity/volume] in Seru m or Plasma 32 U/L 7 - 56 [facility] Anion gap 3 in Serum or Plasma 15.0 mmol/L 8.0 - 16.0 [facility] AGE 29 yrs [facility] Hospit al NON-AA GFR >60 mL/min [facility] Hosp ital AFR AMER GFR >60 mL/min [facility] Ho spital Male GFR In [...] >32 mL/min Normal ID Date Data Source [id number] 03/09/2020 07:35:00 PM EDT [facility] Name Value Range Interpretation Code Description Data Goivana rce(s) Supporting Document(s) Lipase [Enzymatic activity/volume] in Serum or Plasma 39 U/L 13 - 60 [facility] ID Date Data Source [id number] 03/09/2020 07:19:00 PM EDT [facility] Name Value Range Interpretation Code Description Data Giovana rce(s) Supporting Document(s) Lactate [Moles/volume] in Serum or Plasma 3.4 MMOL/L 0.2 - 2.2 H [facility] ID Date Data Source [id number] 03/09/2020 07:17[facility] Name Value Range Interpretation Code Description Data Giovana rce(s) Supporting Document(s) CBC W/AUTOMATED DIFF [facility] COMPLETE BLOOD COUNT Leukocytes [#/volume] in Blood by Automated count 11.1 10^3/uL 4.2 - 11.0 H [facility] Erythrocytes [#/volume] in Blood by Automated count 5.71 10^6/uL 4. 50 - 6.30 [facility] Hemoglobin [Mass/volume] in Blood 16.4 g/dL 14.0 - 16.0 H [facility] Hematocrit [Volume Fraction] of Blood by Automated count 51.4 % 4 1.0 - 51.0 H [facility] Erythrocyte mean corpuscular volume [Entitic volume] by Auto mated count 90.0 fL 80.0 - 94.0 [facility] Erythrocyte mean corpuscular hemoglobin [Entitic mass] by Automated count 28.7 pg 27.0 - 34.0 [facility] Erythrocyte mean corpuscular hemoglobin concentration [Mass/volume] by Automated count 31.9 g/dL 31.0 - 36.0 [facility] Erythrocyte distribution width [Ratio] by Automated count 14.1 % 11.5 - 14.8 [facility] Platelets [#/volume] in Blood by Automated count 209 10^3/uL 150 - 45 0 [facility] Platelet mean volume [Entitic volume] in Blood by Automated count 9.0 fL 7.4 - 10.4 [facility] Neutrophils/100 leukocytes in Blood by Automated count 71.7 % 37. 0 - 80.0 [facility] Lymphocytes/100 leukocytes in Blood by Manual count 16.6 % 25.0 - 40.0 L [facility] Monocytes/100 leukocytes in Blood by Automated count 5.9 % 3.0 - 8.0 [facility] Eosinophils/100 leukocytes in Blood by Automated count 5.1 % 0.0 - 7.0 [facility] Basophils/100 leukocytes in Blood by Automated count 0.3 % 0.0 - 2.0 [facility] %IG 0.4 % 0.0 - 0.0 H [facility] al %NRBC 0.0 % 0.0 - 0.0 [facility] al Neutrophils [#/volume] in Blood by Automated count 7.98 10^3/uL 2.00 - 6.90 H [facility] Lymphocytes [#/volume] in Blood by Automated count 1.85 10^3/uL 0.60 - 3.40 [facility] Monocytes [#/volume] in Blood by Automated count 0.66 10^3/uL 0.00 - 0.90 [facility] Eosinophils [#/volume] in Blood by Automated count 0.57 10^3/uL 0.00 - 0.70 [facility] Basophils [#/volume] in Blood by Automated count 0.03 10^3/uL 0.00 - 0.20 [facility] #IG 0.04 10^3/uL 0.00 - 0.10 [facility] H ospital #NRBC 0.00 10^3/uL 0.00 - 0.00 [facility] ospital MANUAL DIFF NOT INDICATED [facility] RBC MORPH NOT INDICATED [facility] spital ID Date Data Source [id number] 02/23/2020 11:36:00 AM EDT [facility] ([facility]) Name Value Range Interpretation Code Description Data Giovana rce(s) Supporting Document(s) CBC W/Automated Diff Laboratory test result [facility] ([facility]) Is patient fasting? N WBC 10.6 10^3/uL 4.2-11.0 [facility] ([facility]) Is patient fasting? N RBC 5.78 10^6/uL 4.50-6.30 [facility] ([facility]) Is patient fasting? N Hematocrit 51.1 % 41.0-51.0 Above high normal [facility] ([facility]) Is patient fasting? N Hemoglobin 16.3 g/dL 14.0-16.0 Above high normal [facility] ([facility]) Is patient fasting? N MCV 88.4 fL 80.0-94.0 [facility] ([facility]) Is patient fasting? N RDW 13.5 % 11.5-14.8 [facility] ([facility]) Is patient fasting? N MCH 28.2 pg 27.0-34.0 [facility] ([facility]) Is patient fasting? N MCHC 31.9 g/dL 31.0-36.0 [facility] ([facility]) Is patient fasting? N Platelets 262 10^3/uL 150-450 [facility] ([facility]) Is patient fasting? N Neut 65.2 % 37.0-80.0 [facility] ([facility]) Is patient fasting? N Lymph 18.6 % 25.0-40.0 Below low normal [facility] ( [facility]) Is patient fasting? N MPV 9.6 fL 7.4-10.4 [facility] ([facility]) Is patient fasting? N Eos 7.6 % 0.0-7.0 Above high normal [facility] ([facility]) Is patient fasting? N Arenac 7.6 % 3.0-8.0 [facility] ([facility]) Is patient fasting? N Baso 0.5 % 0.0-2.0 [facility] ([facility]) Is patient fasting? N %NRBC 0.0 % 0.0-0.0 [facility] ([facility]) Is patient fasting? N %Ig 0.5 % 0.0-0.0 Above high normal [facility] ([facility]) Is patient fasting? N #Lymph 1.97 10^3/uL 0.60-3.40 [facility] ([facility]) Is patient fasting? N #Neut 6.92 10^3/uL 2.00-6.90 Above high normal [facility] ([facility]) Is patient fasting? N #Arenac 0.81 10^3/uL 0.00-0.90 [facility] ([facility]) Is patient fasting? N #Eos 0.81 10^3/uL 0.00-0.70 Above high normal [facility] ([facility]) Is patient fasting? N #Baso 0.05 10^3/uL 0.00-0.20 [facility] ([facility]) Is patient fasting? N #Ig 0.05 10^3/uL 0.00-0.10 [facility] ([facility]) Is patient fasting? N Manual Diff Laboratory test result [facility] ([facility]) Is patient fasting? N RBC Morph Laboratory test result [facility] ([facility]) Is patient fasting? N #NRBC 0.00 10^3/uL 0.00-0.00 [facility] ([facility]) Is patient fasting? N ID Date Data Source [id number] 02/23/2020 11:36:00 AM EDT [facility] ([facility]) Name Value Range Interpretation Code Description Data Giovana rce(s) Supporting Document(s) Hemoglobin A1c/Hemoglobin.total in Blood 4.9 % 4.4-6.1 [facility] ([facility]) Is patient fasting? N Topiramate [Mass/volume] in Serum or Plasma 7.3 ug/mL 2.0-25.0 [facility] ([facility]) Is patient fasting? N ID Date Data Source [id number] 02/23/2020 11:36:00 AM EDT [facility] ([facility]) Name Value Range Interpretation Code Description Data Giovana rce(s) Supporting Document(s) Comprehensive [employer] Laboratory test result [facility] ([facility]) Is patient fasting? N Chloride 103 meq/L 98-107 [facility] ([facility]) Is patient fasting? N Sodium 141 meq/L 134-153 [facility] ([facility]) Is patient fasting? N Potassium 3.8 meq/L 3.6-5.0 [facility] ([facility]) Is patient fasting? N Co2 25 meq/L 22-30 [facility] ([facility]) Is patient fasting? N BUN 8 mg/dL 7-21 [facility] ([facility]) Is patient fasting? N Glucose 86 mg/dL 65-110 [facility] ([facility]) Is patient fasting? N Creatinine 0.9 mg/dL 0.7-1.5 [facility] ([facility]) Is patient fasting? N Total Protein 7.8 g/dL 6.3-8.2 [facility] ([facility]) Is patient fasting? N BUN/Creat 9 8-27 [facility] ([facility]) Is patient fasting? N A/G Ratio 1.2 0.8-2.0 [facility] ([facility]) Is patient fasting? N Albumin 4.3 g/dL 3.9-5.0 [facility] ([facility]) Is patient fasting? N Globulin 3.5 GM/DL 2.4-3.2 Above high normal [facility] ([facility]) Is patient fasting? N Calcium 9.4 mg/dL 8.4-10.2 [facility] ([facility]) Is patient fasting? N Alkaline Phos 101 U/L 38-126 [facility] ([facility]) Is patient fasting? N Total Bili Laboratory test result 0.2-1.3 [place] [facility] ([facility]) Is patient fasting? N Sgot/Ast 19 U/L 5-40 [facility] ([facility]) Is patient fasting? N SGPT/Alt 35 U/L 7-56 [facility] ([facility]) Is patient fasting? N Anion Gap 13.0 mmol/L 8.0-16.0 [facility] ([facility]) Is patient fasting? N Age 29 yrs [facility] ([facility]) Is patient fasting? N Non-Aa GFR Laboratory test result [facility] ([facility]) Is patient fasting? N Afr Amer GFR Laboratory test result [facility] ([facility]) Is patient fasting? N ID Date Data Source [id number] 02/23/2020 11:36:00 AM EDT [facility] ([facility]) Name Value Range Interpretation Code Description Data Giovana rce(s) Supporting Document(s) Thyrotropin [Units/volume] in Serum or Plasma 1.92 uIU/mL 0.47-5.01 [facility] ([facility]) Is patient fasting? N Thyroxine (T4) free [Mass/volume] in Serum or Plasma 0.85 ng/dL 0.93-1.70 Below low normal [facility] ([facility]) Is patient fasting? N ID Date Data Source [id number] 02/23/2020 11:36:00 AM EDT [facility] ([facility]) Name Value Range Interpretation Code Description Data Giovana rce(s) Supporting Document(s) Free Nordheim Lt Chains,S 31.4 mg/L 3.3-19.4 Above high normal [facility] ([facility]) Is patient fasting? N Nordheim/Lambda Ratio,S 1.03 NA 0.26-1.65 [facility] ([facility]) Is patient fasting? N Free Lambda Lt Chains,S 30.5 mg/L 5.7-26.3 Above high normal [facility] ([facility]) Is patient fasting? N ID Date Data Source [id number] 02/29/2020 07:03:00 AM EDT [facility] Name Value Range Interpretation Code Description Data Giovana rce(s) Supporting Document(s) Topiramate [Mass/volume] in Serum or Plasma 7.3 ug/mL 2.0-25.0 [facility] This test was developed and its performa nce characteristicsdetermined by [facility]. It has not been cleared or approvedby the Food and Drug Administration. Detection Limit = 1.0 ID Date Data Source [id number] 02/26/2020 06:44:00 AM EDT [facility] Name Value Range Interpretation Code Description Data Giovana rce(s) Supporting Document(s) Immunoglobulin light chains.kappa.free [Mass/volume] in Seru m 31.4 mg/L 3.3-19.4 H [facility] Immunoglobulin light chains.lambda.free [Mass/volume] in Serum or Plasma 30.5 mg/L 5.7-26.3 H [facility] Immunoglobulin light chains.kappa.free/I mmunoglobulin light chains.lambda.free [Mass Ratio] in Serum 1.03 NA 0.26-1.65 [facility] ID Date Data Source [id number] 02/23/2020 11:36:00 AM EDT [facility] ([facility]) Name Value Range Interpretation Code Description Data Giovana rce(s) Supporting Document(s) Thyrotropin [Units/volume] in Serum or Plasma Laboratory test result [facility] ([facility]) Thyroxine (T4) free [Mass/volume] in Serum or Plasma Laboratory alok t result [facility] ([facility]) Immunoglobulin light chains.kappa.free [Mass/volume] i n Serum Laboratory test result [facility]) ID Date Data Source [id number] 02/23/2020 04:35:00 PM EDT [facility] Name Value Range Interpretation Code Description Data Giovana rce(s) Supporting Document(s) Thyroxine (T4) free index in Serum or Plasma by calculation 0.85 NG/DL 0.93 - 1.70 L [facility] ID Date Data Source [id number] 02/23/2020 04:33:00 PM EDT [facility] Name Value Range Interpretation Code Description Data Giovana rce(s) Supporting Document(s) Thyrotropin [Units/volume] in Serum or Plasma by Detec tion limit <= 0.05 mIU/L 1.92 uIU/mL 0.47 - 5.01 [facility] ID Date Data Source [id number] 02/23/2020 04:19:00 PM EDT [facility] Name Value Range Interpretation Code Description Data Giovana rce(s) Supporting Document(s) CBC W/AUTOMATED DIFF [facility] COMPLETE BLOOD COUNT Leukocytes [#/volume] in Blood by Automated count 10.6 10^3/uL 4.2 - 11.0 [facility] Erythrocytes [#/volume] in Blood by Automated count 5.78 10^6/uL 4. 50 - 6.30 [facility] Hemoglobin [Mass/volume] in Blood 16.3 g/dL 14.0 - 16.0 H [facility] Hematocrit [Volume Fraction] of Blood by Automated count 51.1 % 4 1.0 - 51.0 H [facility] Erythrocyte mean corpuscular volume [Entitic volume] by Auto mated count 88.4 fL 80.0 - 94.0 [facility] Erythrocyte mean corpuscular hemoglobin [Entitic mass] by Automated count 28.2 pg 27.0 - 34.0 [facility] Erythrocyte mean corpuscular hemoglobin concentration [Mass/volume] by Automated count 31.9 g/dL 31.0 - 36.0 [facility] Erythrocyte distribution width [Ratio] by Automated count 13.5 % 11.5 - 14.8 [facility] Platelets [#/volume] in Blood by Automated count 262 10^3/uL 150 - 45 0 [facility] Platelet mean volume [Entitic volume] in Blood by Automated count 9.6 fL 7.4 - 10.4 [facility] Neutrophils/100 leukocytes in Blood by Automated count 65.2 % 37. 0 - 80.0 [facility] Lymphocytes/100 leukocytes in Blood by Manual count 18.6 % 25.0 - 40.0 L [facility] Monocytes/100 leukocytes in Blood by Automated count 7.6 % 3.0 - 8.0 [facility] Eosinophils/100 leukocytes in Blood by Automated count 7.6 % 0.0 - 7.0 H [facility] Basophils/100 leukocytes in Blood by Automated count 0.5 % 0.0 - 2.0 [facility] %IG 0.5 % 0.0 - 0.0 H [facility] al %NRBC 0.0 % 0.0 - 0.0 [facility] al Neutrophils [#/volume] in Blood by Automated count 6.92 10^3/uL 2.00 - 6.90 H [facility] Lymphocytes [#/volume] in Blood by Automated count 1.97 10^3/uL 0.60 - 3.40 [facility] Monocytes [#/volume] in Blood by Automated count 0.81 10^3/uL 0.00 - 0.90 [facility] Eosinophils [#/volume] in Blood by Automated count 0.81 10^3/uL 0.00 - 0.70 H [facility] Basophils [#/volume] in Blood by Automated count 0.05 10^3/uL 0.00 - 0.20 [facility] #IG 0.05 10^3/uL 0.00 - 0.10 [facility] H ospital #NRBC 0.00 10^3/uL 0.00 - 0.00 [facility] ospital MANUAL DIFF NOT INDICATED [facility] RBC MORPH NOT INDICATED [facility] spital ID Date Data Source [id number] 02/23/2020 04:14:00 PM EDT [facility] Name Value Range Interpretation Code Description Data Giovana rce(s) Supporting Document(s) COMPREHENSIVE METABOLIC PANEL [facility] COMPREHENSIVE METABOLIC PANEL Sodium [Moles/volume] in Serum or Plasma 141 mEq/L 134 - 153 [facility] Potassium [Moles/volume] in Serum or Plasma 3.8 mEq/L 3.6 - 5.0 [facility] Chloride [Moles/volume] in Serum or Plasma 103 mEq/L 98 - 107 [facility] Carbon dioxide, total [Moles/volume] in Serum or Plasma 25 MEQ/L 22 - 30 [facility] Glucose [Mass/volume] in Serum or Plasma 86 MG/DL 65 - 110 [facility] BUN 8 MG/DL 7 - 21 [facility] al Creatinine [Mass/volume] in Serum or Plasma 0.9 MG/DL 0.7 - 1.5 [facility] BUN/CREAT 9 8 - 27 [facility] al Protein [Mass/volume] in Serum or Plasma 7.8 G/DL 6.3 - 8.2 [facility] Albumin [Mass/volume] in Serum or Plasma 4.3 G/DL 3.9 - 5.0 [facility] Globulin [Mass/volume] in Serum by calculation 3.5 GM/DL 2.4 - 3.2 H [facility] A/G RATIO 1.2 0.8 - 2.0 [facility] Calcium [Mass/volume] in Serum or Plasma 9.4 MG/DL 8.4 - 10.2 [facility] Bilirubin.total [Mass/volume] in Serum or Plasma <0.7 MG/DL 0.2 - 1.3 [facility] Alkaline phosphatase [Enzymatic activity/volume] in Serum or Plasma 101 U/L 38 - 126 [facility] Aspartate aminotransferase [Enzymatic activity/volume] in Serum or Plasma 19 U/L 5 - 40 [facility] Alanine aminotransferase [Enzymatic activity/volume] in Seru m or Plasma 35 U/L 7 - 56 [facility] Anion gap 3 in Serum or Plasma 13.0 mmol/L 8.0 - 16.0 [facility] AGE 29 yrs [facility] al NON-AA GFR >60 mL/min [facility] ital AFR AMER GFR >60 mL/min [facility] Ho spital Male GFR In [...] >32 mL/min Normal ID Date Data Source [id number] 02/23/2020 04:05:00 PM EDT [facility] Name Value Range Interpretation Code Description Data Giovana rce(s) Supporting Document(s) Hemoglobin A1c/Hemoglobin.total in Blood 4.9 % 4.4 - 6.1 [facility] {A1]{HB] ID Date Data Source [id number] 02/10/2020 09:57:30 AM [facility]T [facility] INFORMATIONPatient MRN Name Date of Age Gend*PT [id number] Nick Trujillo Los 1990 29 years M SDCPT Location Admission Date/Time Visit ID [facility]851 --- --- EPI ID CSN Admitting Provider [id number] Robert Tamayo MD([id number]) [place] [address] OPERATIVE REPORT OPNAME: NICK TRUJILLO [place]#: [id number] #: [id number] ADMISSION DATE: 02/09/2020DOB: 1990 SEX: M PT TYPE: H SURACCT #: [id number] CARE PHYSICIAN: ADITYA ROOTDATE OF OPERATION: 020PREOPERATIVE [...] reversal of general anesthesia.SANIA MENDOZA/QUEENIE Job #: [id number] DOC #: [id number] Name Value Range Interpretation Code Description Data Giovana rce(s) Supporting Document(s) ID Date Data Source [id number] 02/09/2020 02:36:21 PM EDT [facility] SPEC EXP DATE 02/12/2020PATI ENT ABO/Rh A NEGATIVEANTIBODY SCREEN NEGATIVETESTING SITE PERFORMED AT [address] [place] [address] [id number] BANK COMMENT BLOOD TYPE CONFIRMED. Name Value Range Interpretation Code Description Data Giovana mccurdy(s) Supporting Document(s) TYPE AND SCREEN [facility] MARGOTY ID Date Data Source [id number] 02/08/2020 07:24:25 AM EDT [facility]FORMATIONPatient MRN Name Date of Age Gend*PT [id number] Nick Trujillo 1990 29 years M OPPT Location Admission Date/Time Visit ID Attending Provider --- --- --- Robert Tamayo MD([id number]) EPI ID CSN Admitting Provider [id number] ---OUTPATIENT / OBSERVATIONAL SURGICAL OR INVASIVE PROCEDUREName: [...] 2 (two) times a dayHistorical Provider, Umeclidinium Kayenta (INCRUSE ELLIPTA) 62.5 MCG/INH AEPB Inhale 1 [...] thyromegaly. No carotid bruits.MENTAL / NEUROLOGICAL STATUS: [id number]: Clear to auscultation. No wheezes, rhonchi or [...] parts of this document, were dictated using Open Garden software. A reasonable attempt at proofreading has beenmade to minimize errors. Please call with any questions or corrections.* Name Value Range Interpretation Code Description Data Giovana rce(s) Supporting Document(s) ID Date Data Source [id number] 02/04/2020 12:14:57 PM EDT [facility] Name Value Range Interpretation Code Description Data Giovana rce(s) Supporting Document(s) EKG [facility] TANOCn5vTzYPSsUmx8EdRpPjGFYjBS5xufu2P4H3hPQhJ6UdxYNyz3qwJ8QgG2ZtXYAlPWSRKO9JzPFt jb2 [file] rsuoUcTwf8NwIthpmdbSay0gycwlnzHtB4y2p0PlDa 1bi8l7o3X8LDqTai4n9z4C78DhThn5z3c9Aw9Gpyhi2d9q7Ye7VKujjO1I1ySk/6lHct0At5/a/Oji/P bdfw3bb8/P+vmtCs42xVYAKkHQarl06UU1/ArCae7Wd154gsWxvwcQHoW1fZNOJh4BGCWOnz3NHse5Lo BHDDd1ESmd6hnMBASahy3nMLbzmnGtMPfCh41gVce1 vPTIVzkkL7sZI/uxTExNE/uxTUyNE/uxTkzNE/kpM3fRUUnySGhFHWvgVLfXNKu/VmUxK3/aqYaK/Vgq pqaK/dgqpsaK/VgrpuaK/dgrpgaL/VgspiaL/dgspkaL/VgtpmaL/dgtpoaL/VgupqaL/dgupsaL/Vgv puaL/dgvpgaM/VgwpiaM/dgwpkaM/VgxpmaMjX/1na CFP+1UU8Z+eKiRB9P+lPhBg4G+7TqIr2X+HYgPu5R+dArHy6N+oObAg6W+2SoLj9wi18yT3/sk96vdA/ Jl5EjeM/Gf79buMIPb5OjyHKEl47hbNySb2FjcGjAj89lxArXf8GkpUhYx65akC/Bq5TgpN/Xf97buAN Ca2LamLTQo62qrMeDu8VmwQwTa32keGmBr+ZiaPvZj +5gaP/Zj/ZiaP/Zj/6smRVWnZIhxDHMmT7biLrGuMMjvCfIgV1gaHwOuSLhiOrOqG0crH/ZjDZmaQ/Zj D7naQ/3cZ0piL/3aF2wmA/0nQ0ntM/0wC4zyI/4fY3zrS/8tH7moR/9yJ3bfS/1nG1ubM/6jO5ijR/5j D7naQ/8nP9ilU/1yD1jzV/5pC7nvL/6rC0iaG/5jD7 naQ/48X8H7uB83tEpSrd/aoymbND/tLNs0v/r9DqEqs4eevEK53aCXfWzt2NoxDxIpZ4hdF/9cI9foA/ 6iV7qqA/3dD6irM/5yP8qrN/3cQ7ogS/3qA9fpJ/2bT0eaW/6uE1fdF/1sU2diI/7lG7giO/8cE2rxT/ 0lI5lvH/7sP9bkP/2bZ9jeF/7yF2niA/2aH2cbR/5j D7naQ/9pT2lsX/3pD2zuG/7gF7jeP/7eR7fnG/0hH6lsC/2xY5gkB/8uS4smS/1qJ7awT/4kB2mgY/5j D7naQ/7dG4xnX/9mX3duQ/9zM6fvC/4fB0wtY/6xA6zmH/2rX7bsI/5jD/XeGwa9IQ/F6SXfGWeQktRx XpyjY6kgkaHtKL8AgiT3EupxPiDpfNy2d2Z6zg0kiE 2qt1rj12F1UqnPqN8U71V8IO2v14N2HdpEyX9Z23V1SY5s10U4JjtToO9O91V4ML7f81G4KiuBoI3m48 W7EE2x03E0RloXsD9r88D9ZY4v01C7LphgyJ5V6uM7THBkS0D9L7yghM9S2rG6KOCzD9N2KFHRyb/Q9g qdv2Z3gRYyzS2p1WxpL7u9KueJ2y9P3zG3T5P3ui4J mR6xx2TeN7vr4Ufezcz5ZzmtCD3VfxxI07NyzaU5hRRqsY5v8XmvH3t7GfoA4i8A7losm3P7PP4M3ZZG bc/Z6nnsj1V0QE0C7PEOwr/L2ypzr7X1JO4K9NOswq/C9gqct7M4ZB3I3aNqqx/O7jvpx2T1DC6E4xIt bc/Z4kpbm7L8TZf4YZuvj6S2WqOX3drEE8H9rDTJDo vKBLIgtP2G2ppZqeGsf+kVvtdtyZ9L+0x6k5x8zHFDAllczI8X+9d1m0x2nKLkqw9SlphIW8BipwjM6F ktPwXMN2XVDPTUtoYnGOsgTkkTZGrzPQoAtMWQlwooVxEXjYUENTLgiQvOGgwBCpsWFOwJqlbaarhqWc IWyYpitBQK0ZugbdCHs4SEuVJJlqUhIItrYlnRP6ul XgwVtkJIk7lVPsJOpJBbBBWksFeCXmxKX8yRNIcUntxuwdxdXisLaDlzuKoE4J4xQgiYz2TPgZWY0dUl oUykMjyXAHesDjrKl16Kzl28zVQs7Gbw7M5+MOISÉS/1kBnoe8RGmPuu6i6mmKep5+2AQJ4JGwejV6V1EgR [file] ZACpNaxiEm5ynOA1CVFgOxgWSx3Ob2MayrW1goAyVnJ6LsT9XyDlHK1E ID Date Data Source [id number] 02/04/2020 12:06:53 PM EDT [facility] INFORMATIONPatient MRN Name Date of Age Gend*PT [id number] Nick Trujillo 1990 29 years M OPPT Location Admission Date/Time Visit ID Attending Provider --- --- --- Robert Tamayo MD([id number]) EPI ID [facility] Admitting Provider [id number] ---OUTPATIENT / OBSERVATIONAL SURGICAL OR INVASIVE PROCEDUREName: [...] 2 (two) times a dayHistorical Provider, Umeclidinium Kayenta (INCRUSE ELLIPTA) 62.5 MCG/INH AEPB Inhale 1 [...] thyromegaly. No carotid bruits.MENTAL / NEUROLOGICAL STATUS: [id number]: Clear to auscultation. No wheezes, rhonchi or [...] parts of this document, were dictated using Open Garden software. A reasonable attempt at proofreading has beenmade to minimize errors. Please call with any questions or corrections.* Name Value Range Interpretation Code Description Data Giovana rce(s) Supporting Document(s) ID Date Data Source [id number] 02/04/2020 05:52:41 PM EDT [facility] Name Value Range Interpretation Code Description Data [facility] Supporting Document(s) SODIUM 140 mmol/L (136-145) [facility] POTASSIUM 4.0 mmol/L (3.6-5.2) [facility] CHLORIDE 106 mmol/L (100-108) [facility] CO2 25 mmol/L (22-31) [facility] ANION GAP 9 mmol/L (7-16) [facility] UREA NITROGEN 13 mg/dL (7-24) [facility] CREATININE 1.08 mg/dL (0.80-1.30) [facility] BUN/CREAT RATIO 12.0 RATIO (10.0-20.0) [facility] GLUCOSE 100 mg/dL (70-99) H [facility] CALCIUM 9.2 mg/dL (8.4-10.2) [facility] GFR >60 ml/min/1.73m2 (>59) [facility] GFR ( AMER) >60 ml/min/1.73m2 (>59) [facility] GFR INTERPRETATION [facility] --NORMAL KIDNEY FUNCTION OR MILD DISEASE - GFR >OR= 60CHRONIC KIDNEY DISEASE - GFR 15 - 59RENAL FAILURE - GFR <15 Est. GFR calculation based on the MDRDstudy equation, which assumes a steadystate for creatinine. Est. GFR should notbe used for medication dosing. ID Date Data Source [id number] 02/04/2020 05:35:33 PM EDT [facility] Name Value Range Interpretation Code Description Data Giovana rce(s) Supporting Document(s) WBC 9.2 10*3/uL (4.1-11.0) [facility] RBC 5.75 10*6/uL (4.60-6.10) [facility] HGB 16.6 g/dL (13.5-18.0) [facility] HCT 51.0 % (41.0-53.0) [facility] MCV 88.8 fL (80.0-95.0) [facility] MCH 28.8 pg (27.0-32.0) [facility] MCHC 32.5 g/dL (32.0-36.0) [facility] RDW 14.8 % (10.5-14.5) H [facility] PLT 233 10*3/uL (150-450) [facility] MPV 8.4 fL (7.1-10.7) [facility] ID Date Data Source [id number] 02/04/2020 09:45:00 AM EDT [facility] Name Value Range Interpretation Code Description Data Giovana rce(s) Supporting Document(s) SARS coronavirus 2 RNA [facility] This lab was ordered by [facility] and reported by [facility]. ID Date Data Source [id number] 02/05/2020 07:07:45 PM EDT [facility] Name Value Range Interpretation Code Description Data Giovana rce(s) Supporting Document(s) SARS-COV-2 TYRON [facility] Not DetectedReference range: Not Detecte d Testing was performed using the hailey(R) SARS-CoV-2 test. This test was developed and its performance characteristics determined by [employer]. This test has not been FDA cleared [...] detected) result in this assay. Performed At: [facility] [id number] Job Henson MD Ph:[phone] ID Date Data Source [id number] 01/31/2020 01:46:00 PM EDT [facility] WO IV CONTRASTCLINICAL [...] rce(s) Supporting Document(s) ID Date Data Source [id number] 01/27/2020 11:08:00 AM EDT [facility] 1 OrderSheet [facility] Emergency Department [address] [place] [address] Phone #: ext- [phone] 01/27/2020 11:08 Patient: [...] Abd PEL W/ IV STAT 11:01/27/2020 11:15 [facility] Only Milagros Morse MD; Bhanu ESPINOZA(Oxygen?(No))(IV?(Yes)) NOTES: [...] rce(s) Supporting Document(s) ID Date Data Source [id number] 01/27/2020 11:08:00 AM EDT [facility] 1 Medication Reconciliation Report [facility] Emergency Department [address] [place] [address] Phone #: ext- [phone] 01/27/2020 11:08 Patient: [...] ODT Oral, prn 2 Medication Reconciliation Report [facility] Emergency Department [address] [place] [address] Phone #: ext [phone] 01/27/2020 11:08 Patient: NICK TRUJILLO Sex: M : 1990 Age: 29yThe source(s) of the original Home Medication information:Not obtained.The following Medications were given to the patient in the Emergency Department:None.The following Medications were prescribed to the patient:None. Name Value Range Interpretation Code Description Data Giovana e(s) Supporting Document(s) ID Date Data Source [id number] 01/27/2020 11:08:00 AM EDT [place] [address] Medication Administration Record [facility] Emergency Department [address] [place] [address] Phone #: ext- [phone] 01/27/2020 11:08 Patient: NICK TRUJILLO Sex: M : 1990 Age: 29yWeight: 181.4 kgHeight/Length: 71 inBMI: 55.8ALLERGIES: Dilantin, Naproxsyn, Tylenol with codeinDate/Time Medication Administered Medication Ordered Name Value Range Interpretation Code Description Data Giovana rce(s) Supporting Document(s) ID Date Data Source [id number] 01/27/2020 11:08:00 AM EDT [facility] 1 General Instructions [facility] Emergency Department [address] [place] [address] Phone #: ext- [phone] 01/27/2020 11:08 [id number] Sex: [facility] : 1990 Age: 29yChronic abdominal [...] instructions verbalized by patient. 2 General Instructions [facility] Emergency Department [address] [place] [address], [place] [address] Phone #: ext [phone] 01/27/2020 11:08 [facility]: [id number] Sex: M : 1990 Age: 29y ADDITIONAL [...] or constipation Chronic cough 3 General Instructions [facility] Emergency Department [address] [place] [address] Phone #: ext- [phone] 01/27/2020 11:08 Patient: [...] be pushed back in. 4 General Instructions [facility] Emergency Department [address] [place] [address] Phone #: izh- [phone] 01/27/2020 11:08 Patient: NICK TRUJILLO Sex: M [...] to the backCall 911 5 General Instructions [facility] Emergency Department [address] [place] [address] Phone #: ext- [phone] 01/27/2020 11:08 Patient: NICK TRUJILLO Sex: M : 1990 Age: 29yCall 911 if any of these occur: Severe pain, redness, or tenderness in the area near the hernia Pain worsens quickly and doesn't get better Inability to have a bowel movement or pass gas Fever of 100.4F (38C) or higher, or as directed by your healthcare provider [phone] [employer]. [address] [place] [address]. All rights reserved. This information is not intended as asubstitute for professional medical care. Always follow your healthcare professional's instructions. You have been given the following additional information: Hernia (Adult) No strenuous activity.(Electronically signed by Milagros Morse MD 01/28/2020 00:50) Name Value Range Interpretation Code Description Data Giovana rce(s) Supporting Document(s) ID Date Data Source [id number] 01/27/2020 11:08:00 AM EDT [facility] 1 Clinical Report - Nurses [facility] Emergency Department [address] [place] [address] Phone #: idb- [phone] 01/27/2020 11:08 Patient: NICK TRUJILLO Sex: M [...] or confirmed signs of infection present. --11:147 [facility], R.N.11:10 01/27/20. BP: 112/77. MAP: 88. [...] --11:01/27/20 [facility] 2 Clinical Report - Nurses [facility] Emergency Department [address] [place] [address] Phone #: ext- [phone] 01/27/2020 11:08 Patient: INCK TRUJILLO Sex: M : 1990 [...] To treatment room. --11:01/27/20 Alysha Borden R.N.PHYSICAL [id number] 01/27/20. To room via stretcher.GENERAL / NEURO / PSYCH: Alert. Oriented X 4. Appears in no acute distress. Appears in pain.RESPIRATORY: Respirations not labored. Breath sounds within normal limits. 3 Clinical Report - Nurses [facility] Emergency Department [address] [place] [address] Phone #: ext- [phone] 01/27/2020 11:08 Patient: [...] from the left antecubital space by tech. ([id number]). --11:52 01/27/20 Phillip Drummond RN 11:43 01/27/2020 Two (2) unsuccessful IV access attempts including the left forearm. --11:53 01/27/20 Phillip Drummond RN 11:56 01/27/2020 Site #1 started via IV in the right antecubital space with an 20g angiocath, with aseptic technique and good blood return; one attempt. Saline lock flushed with 10 mL saline. --11:56 01/27/20 Suha Alysha, R.N. Patient transported to PR by wheelchair with wet process technician. ([id number]). --12:01 01/27/20 Phillip Drummond RN Checked patient name and birthdate: patient confirmed. Clean catch urine collected; sample sent to lab for urinalys is. Specimen labeled in the presence of the patient ([id number]). Patient returned from CT by wheelchair with wet process technician. ([id number]). --12:29 01/27/20 Phillip Drummond RN 11:40 01/27/20. [...] Patient verbalized understanding. Written instructions provided in Tajik. The patient was discharged home and unaccompanied at time of discharge. He left ambulatory and via private vehicle. Driving (unknown). --13:30 01/27/20 Jennifer Russell R.N. 13:28 01/27/20. BP: 106/46. MAP: 66. HR: 83. RR: 20. O2 saturation: 96% on room air. Temp: 98.2 F 4 Clinical Report - Nurses [facility] Emergency Department [address] [place] [address] Phone #: ext- [phone] 01/27/2020 11:08 Patient: [...] rce(s) Supporting Document(s) ID Date Data Source [id number] 01/27/2020 11:08:00 AM EDT [facility] 1 Clinical Report - Physicians/Mid Levels [facility] Emergency Department [address] [place] [address] Phone #: ext- [phone] 01/27/2020 11:08 Patient: [...] Inhalation, daily. 2 Clinical Report - Physicians/Mid [facility] Emergency Department [address] [place] [address] Phone #: ext- [phone] 01/27/2020 11:08 Patient: [id number] Sex: M : 1990 Age: 29y Lisinopril-hydroCHLOROthiazide [...] EKG 3 Clinical Report - Physicians/Mid Levels [facility] Emergency Department [address] [place] [address] Phone #: ext- [phone] 01/27/2020 11:08 Patient: [...] mL/min 4 Clinical Report - Physicians/Mid Levels [facility] Emergency Department [address] [place], [place] [address] Phone #: ext- [phone] 01/27/2020 11:08 Patient: NICK TRUJILLO Sex: M : 1990 Age: 29y Male GFR Interprentation 20-49 yrs >60 mL/min Iamqlu92-42 yrs >56 mL/min Normal 60-69 yrs >49 mL/min Normal 70- 79yrs>42 mL/min Normal 80 and above >35 mL/min Normal Female GFRInterpretation 20-39 yrs >60 mL/min Normal 40-49 yrs >58 mL/minNormal 50-59 yrs >51 mL/min Normal 60-69 yrs >45 mL/min Dkckpr33-92 yrs >39 mL/min Normal 80 and above >32 mL/min NormalLactic Acid: (KAVITA: 01/27/2020 11:27) ( [facility] 01/27/2020 12:10) Final results Test Result Flag [...] CT ABD //T// PELVIS W/ IV ONLY [facility] [address] [place] [address] PHONE: [phone] FAX: [phone] Name .................. : GAVIOTA Madison Acct Number.................. : [id number] ROOM. ................. : TR-07 MR Number ................... : [id number] Stay type ............. : E/R Discharge Date......... ... : Admit Date ......... : 01/27/20 Admit Phys .................... : COONEYNORM Date of ....... : 1990 Family Phys ................... : [employer] HARD Phone .................. : [phone] Age ................................ : 29 Film# .................. .:[id number] Sex ................................. : M Unsigned transcriptions are preliminary reports and do not represent a medical or legal document CT ABD Reason(s): Abdominal Pain 5 Clinical Report - Physicians/Mid Levels [facility] Emergency Department [address] [place] [address] Phone #: ext- [phone] 01/27/2020 11:08 Patient: NICK TRUJILLO Sex: M [...] 370Method of administration: Intravenous [address] [place], [place] [address]PHONE: [phone] FAX: [phone] .................. : GAVIOTA Madison Acct Number.................. : [id number]. ................. : TR-07 MR Number ................... : [id number] type ............. : E/R Discharge Date......... ... :Admit Date ......... : 01/27/20 Admit Phys .................... : COONEYNORMDate of ....... : 1990 Family Phys ................... : HESTER HARDPhone .................. : [phone] Age ................................ : 29Film# .................. .:[id number] Sex ................................. : MUnsigned transcriptions are preliminary reports and do not represent a medical or legal document CT ABD Reason(s): Abdominal PainExamination dictated by CLYDE Gallego. Examination was reviewed with Cortez Rice MD, radiologist at the time of this dictation. Electronically Reviewed and Signed ByFARHAD LEONE GMM 6 Clinical Report - Physicians/Mid Levels [facility] Emergency Department [address] [place] [address] Phone #: ext- [phone] 01/27/2020 11:08 Patient: [...] MEDICATIONS: 7 Clinical Report - Physicians/Mid Levels [facility] Emergency Department [address] [place] [address] Phone #: ext- [phone] 01/27/2020 11:08 Patient: NICK TRUJILLO Sex: M [...] rce(s) Supporting Document(s) ID Date Data Source [id number] 01/27/2020 01:49:00 [place] [address] PHONE: [phone] FAX: [phone] Name .................. : GAVIOTA Madison Acct Number.................. : [id number] ROOM. ................. : TR-07 MR Number ................... : [id number] Stay type ............. : E/R Discharge Date......... ... : Admit Date ......... : 09/16 Admit Phys .................... : COONEYNORM Date of ....... : 1990 Family Phys ................... : HESTER HARD Phone .................. : [phone] Age ................................ : 29 Film# .................. .:[id number] Sex ................................. : M Unsigned transcriptions are preliminary reports and do not represent a medical or legal document CT ABD & PELVIS W/ IV ONLY [id number] COMPLETE:01/27/20 12:41 [facility] [address] Reason(s): Abdominal Pain CT SCAN OF THE [...] of administration: Intravenous Page 1 of 2 [facility] [address] [place] [address] PHONE: [phone] FAX: [phone] Name .................. : GAVIOTA Madison Acct Number.................. : [id number] ROOM. ................. : TR-07 Number ................... : [id number] Stay type ............. : E/R Discharge Date......... ... : Admit Date ......... : 01/27/20 Admit Phys .................... : COONEYNORM Date of ....... : 1990 Family Phys ................... : HESTER HARD Phone .................. : [phone] Age ................................ : 29 Film# .................. .:[id number] Sex ................................. : M Unsigned transcriptions are preliminary reports and do not represent a medical or legal document CT ABD & PELVIS W/ IV ONLY [id number] COMPLETE:01/27/20 12:41 [facility] [address] Reason(s): Abdominal Pain Examination dictated by CLYDE Gallego. Examination was reviewed with Cortez Sinha MD, radiologist at the time of this dictation. Electronically Reviewed and Signed By CORTEZ SINHA MD , 01/27/20 13:49, [facility] Transcribe Initials: SSR, Transcribe Date: 01/27/20 12:55, Dictation Date: Copy for: 010 EMERGENCY SRV Copy for: EMERGENCY DEPT via modem Copy for: 710 MED REC Page 2 of 2 Name Value Range Interpretation Code Description Data Giovana rce(s) Supporting Document(s) ID Date Data Source [id number] 01/27/2020 12:10:00 PM EDT [facility] ([facility]) Name Value Range Interpretation Code Description Data Giovana rce(s) Supporting Document(s) Urinalysis Laboratory test result [facility] ([facility]) SOURCE: Clean Catch Source Laboratory test result [facility] ([facility]) SOURCE: Clean Catch Color Laboratory test result [facility] ([facility]) SOURCE: Clean Catch Spec [place] 1.005 1.001-1.030 [facility] ([facility]) SOURCE: Clean Catch Clarity Laboratory test result [facility] ([facility]) SOURCE: Clean Catch Bilirubin Laboratory test result [facility] ([facility]) SOURCE: Clean Catch Glucose Laboratory test result [facility] ([facility]) SOURCE: Clean Catch pH 6.5 5-9 [facility] ([facility]) SOURCE: Clean Catch Protein Laboratory test result [facility] ([facility]) SOURCE: Clean Catch Ketone Laboratory test result [facility] ([facility]) SOURCE: Clean Catch Blood Laboratory test result [facility] ([facility]) SOURCE: Clean Catch Nitrite Laboratory test result [facility] ([facility]) SOURCE: Clean Catch Microscopic Laboratory test result M [facility] ([facility]) SOURCE: Clean Catch Leuk Est 25 [facility] ([facility]) SOURCE: Clean Catch Urobilinogen Laboratory test result [facility] ([facility]) SOURCE: Clean Catch WBC Laboratory test result [facility] ([facility]) SOURCE: Clean Catch Epithelial Laboratory test result [facility] ([facility]) SOURCE: Clean Catch ID Date Data Source [id number] 01/27/2020 12:53:00 PM EDT [facility] Name Value Range Interpretation Code Description Data Giovana rce(s) Supporting Document(s) URINALYSIS [facility] giovanna URINALYSIS SOURCE [facility] COLOR yellow NORMAL: Yellow [facility] CLARITY clear NORMAL: Clear [facility] Specific gravity of Urine by Test strip 1.005 1.001 - 1.030 [facility] pH 6.5 5 - 9 [facility] al Glucose [Mass/volume] in Urine by Test strip NORM NORMAL: Negat [facility] Bilirubin.total [Presence] in Urine by Test strip NEG NORMAL: Negative [facility] Ketones [Presence] in Urine by Test strip NEG NORMAL: Negative [facility] Protein [Mass/volume] in Urine by Test strip NEG NORMAL: Negat [facility] Nitrite [Presence] in Urine by Test strip NEG NORMAL: Negative [facility] BLOOD NEG NORMAL: Negative [facility] Leukocyte esterase [Presence] in Urine by Test strip 25 MILAGROS L: Negative [facility] Urobilinogen [Mass/volume] in Urine by Test strip NOR less vanessa n 1.0 mg/dL [facility] MICROSCOPIC [facility] ital WBC 0 - 1 NORMAL: NONE SEEN [facility] EPITHELIAL FEW NORMAL: NONE SEEN [facility] ID Date Data Source [id number] 01/27/2020 11:27:00 AM EDT [facility] ([facility]) Name Value Range Interpretation Code Description Data Giovana rce(s) Supporting Document(s) Lipase [Enzymatic activity/volume] in Serum or Plasma 29 U/L 13-6 0 [facility]) ID Date Data Source [id number] 01/27/2020 11:27:00 AM EDT [facility] ([facility]) Name Value Range Interpretation Code Description Data Giovana rce(s) Supporting Document(s) Comprehensive [employer] Laboratory test result [facility] ([facility]) COMPREHENSIVE METABOLIC PANEL Sodium 138 meq/L 134-153 [facility] ([facility]) Chloride 102 meq/L 98-107 [facility] ([facility]) Potassium 3.8 meq/L 3.6-5.0 [facility] ([facility]) Co2 26 meq/L 22-30 [facility] ([facility]) Glucose 102 mg/dL 65-110 [facility] ([facility]) Creatinine 1.0 mg/dL 0.7-1.5 [facility] ([facility]) BUN 10 mg/dL 7-21 [facility] ([facility]) BUN/Creat 10 8-27 [facility] ([facility]) Albumin 4.4 g/dL 3.9-5.0 [facility] ([facility]) Globulin 3.0 GM/DL 2.4-3.2 [facility] ([facility]) Total Protein 7.4 g/dL 6.3-8.2 [facility] ([facility]) Calcium 9.3 mg/dL 8.4-10.2 [facility] ([facility]) Total Bili Laboratory test result 0.2-1.3 [place] [facility] ([facility]) A/G Ratio 1.5 0.8-2.0 [facility] ([facility]) Alkaline Phos 96 U/L 38-126 [facility] ([facility]) SGPT/Alt 27 U/L 7-56 [facility] ([facility]) Sgot/Ast 18 U/L 5-40 [facility] ([facility]) Anion Gap 10.0 mmol/L 8.0-16.0 [facility] ([facility]) Non-Aa GFR Laboratory test result [facility] ([facility]) Age 29 yrs [facility] ([facility]) Afr Amer GFR Laboratory test result [facility] ([facility]) Male GFR Interprentation 20-49 yrs >60 [...] >32 mL/min Normal ID Date Data Source [id number] 01/27/2020 11:27:00 AM EDT [facility] ([facility]) Name Value Range Interpretation Code Description Data Giovana rce(s) Supporting Document(s) CBC W/Automated Diff Laboratory test result [facility] ([facility]) COMPLETE BLOOD COUNT Hemoglobin 15.9 g/dL 14.0-16.0 [facility] ([facility]) RBC 5.61 10^6/uL 4.50-6.30 [facility] ([facility]) WBC 8.8 10^3/uL 4.2-11.0 [facility] ([facility]) Hematocrit 49.5 % 41.0-51.0 [facility] ([facility]) MCV 88.2 fL 80.0-94.0 [facility] ([facility]) MCH 28.3 pg 27.0-34.0 [facility] ([facility]) RDW 13.8 % 11.5-14.8 [facility] ([facility]) Platelets 197 10^3/uL 150-450 [facility] ([facility]) MPV 9.0 fL 7.4-10.4 [facility] ([facility]) MCHC 32.1 g/dL 31.0-36.0 [facility] ([facility]) Lymph 21.5 % 25.0-40.0 Below low normal [facility] ( [facility]) Arenac 8.4 % 3.0-8.0 Above high normal [facility] ([facility]) Neut 66.9 % 37.0-80.0 [facility] ([facility]) Eos 2.7 % 0.0-7.0 [facility] ([facility]) Baso 0.2 % 0.0-2.0 [facility] ([facility]) %Ig 0.3 % 0.0-0.0 Above high normal [facility] ([facility]) #Lymph 1.90 10^3/uL 0.60-3.40 [facility] ([facility]) %NRBC 0.0 % 0.0-0.0 [facility] ([facility]) #Neut 5.91 10^3/uL 2.00-6.90 [facility] ([facility]) #Baso 0.02 10^3/uL 0.00-0.20 [facility] ([facility]) #Ig 0.03 10^3/uL 0.00-0.10 [facility] ([facility]) #Eos 0.24 10^3/uL 0.00-0.70 [facility] ([facility]) #Arenac 0.74 10^3/uL 0.00-0.90 [facility] ([facility]) RBC Morph Laboratory test result [facility] ([facility]) #NRBC 0.00 10^3/uL 0.00-0.00 [facility] ([facility]) Manual Diff Laboratory test result M [facility] ([facility]) ID Date Data Source [id number] 01/27/2020 11:27:00 AM EDT [facility] ([facility]) Name Value Range Interpretation Code Description Data Giovana rce(s) Supporting Document(s) Lactate [Mass/volume] in Serum or Plasma 1.8 mmol/L 0.2-2.2 [facility] ([facility]) ID Date Data Source [id number] 01/27/2020 12:26:00 PM EDT [facility] Name Value Range Interpretation Code Description Data Giovana rce(s) Supporting Document(s) Lipase [Enzymatic activity/volume] in Serum or Plasma 29 U/L 13 - 60 [facility] ID Date Data Source [id number] 01/27/2020 12:26:00 PM EDT [facility] Name Value Range Interpretation Code Description Data Giovana rce(s) Supporting Document(s) COMPREHENSIVE METABOLIC PANEL [facility] COMPREHENSIVE METABOLIC PANEL Sodium [Moles/volume] in Serum or Plasma 138 mEq/L 134 - 153 [facility] Potassium [Moles/volume] in Serum or Plasma 3.8 mEq/L 3.6 - 5.0 [facility] Chloride [Moles/volume] in Serum or Plasma 102 mEq/L 98 - 107 [facility] Carbon dioxide, total [Moles/volume] in Serum or Plasma 26 MEQ/L 22 - 30 [facility] Glucose [Mass/volume] in Serum or Plasma 102 MG/DL 65 - 110 [facility] BUN 10 MG/DL 7 - 21 [facility] Creatinine [Mass/volume] in Serum or Plasma 1.0 MG/DL 0.7 - 1.5 [facility] BUN/CREAT 10 8 - 27 [facility] Protein [Mass/volume] in Serum or Plasma 7.4 G/DL 6.3 - 8.2 [facility] Albumin [Mass/volume] in Serum or Plasma 4.4 G/DL 3.9 - 5.0 [facility] Globulin [Mass/volume] in Serum by calculation 3.0 GM/DL 2.4 - 3.2 [facility] A/G RATIO 1.5 0.8 - 2.0 [facility] Calcium [Mass/volume] in Serum or Plasma 9.3 MG/DL 8.4 - 10.2 [facility] Bilirubin.total [Mass/volume] in Serum or Plasma <0.7 MG/DL 0.2 - 1.3 [facility] Alkaline phosphatase [Enzymatic activity/volume] in Serum or Plasma 96 U/L 38 - 126 [facility] Aspartate aminotransferase [Enzymatic activity/volume] in Serum or Plasma 18 U/L 5 - 40 [facility] Alanine aminotransferase [Enzymatic activity/volume] in Seru m or Plasma 27 U/L 7 - 56 [facility] Anion gap 3 in Serum or Plasma 10.0 mmol/L 8.0 - 16.0 [facility] AGE 29 yrs [facility] al NON-AA GFR >60 mL/min [facility] ital AFR AMER GFR >60 mL/min [facility] Ho spital Male GFR In [...] >32 mL/min Normal ID Date Data Source [id number] 01/27/2020 12:13:00 PM EDT [facility] Name Value Range Interpretation Code Description Data Giovana rce(s) Supporting Document(s) CBC W/AUTOMATED DIFF [facility] COMPLETE BLOOD COUNT Leukocytes [#/volume] in Blood by Automated count 8.8 10^3/uL 4.2 - 1 1.0 [facility] Erythrocytes [#/volume] in Blood by Automated count 5.61 10^6/uL 4. 50 - 6.30 [facility] Hemoglobin [Mass/volume] in Blood 15.9 g/dL 14.0 - 16.0 [facility] Hematocrit [Volume Fraction] of Blood by Automated count 49.5 % 4 1.0 - 51.0 [facility] Erythrocyte mean corpuscular volume [Entitic volume] by Auto mated count 88.2 fL 80.0 - 94.0 [facility] Erythrocyte mean corpuscular hemoglobin [Entitic mass] by Automated count 28.3 pg 27.0 - 34.0 [facility] Erythrocyte mean corpuscular hemoglobin concentration [Mass/volume] by Automated count 32.1 g/dL 31.0 - 36.0 [facility] Erythrocyte distribution width [Ratio] by Automated count 13.8 % 11.5 - 14.8 [facility] Platelets [#/volume] in Blood by Automated count 197 10^3/uL 150 - 45 0 [facility] Platelet mean volume [Entitic volume] in Blood by Automated count 9.0 fL 7.4 - 10.4 [facility] Neutrophils/100 leukocytes in Blood by Automated count 66.9 % 37. 0 - 80.0 [facility] Lymphocytes/100 leukocytes in Blood by Manual count 21.5 % 25.0 - 40.0 L [facility] Monocytes/100 leukocytes in Blood by Automated count 8.4 % 3.0 - 8.0 H [facility] Eosinophils/100 leukocytes in Blood by Automated count 2.7 % 0.0 - 7.0 [facility] Basophils/100 leukocytes in Blood by Automated count 0.2 % 0.0 - 2.0 [facility] %IG 0.3 % 0.0 - 0.0 H [facility] Hospit al %NRBC 0.0 % 0.0 - 0.0 [facility] al Neutrophils [#/volume] in Blood by Automated count 5.91 10^3/uL 2.00 - 6.90 [facility] Lymphocytes [#/volume] in Blood by Automated count 1.90 10^3/uL 0.60 - 3.40 [facility] Monocytes [#/volume] in Blood by Automated count 0.74 10^3/uL 0.00 - 0.90 [facility] Eosinophils [#/volume] in Blood by Automated count 0.24 10^3/uL 0.00 - 0.70 [facility] Basophils [#/volume] in Blood by Automated count 0.02 10^3/uL 0.00 - 0.20 [facility] #IG 0.03 10^3/uL 0.00 - 0.10 [facility] H ospital #NRBC 0.00 10^3/uL 0.00 - 0.00 [facility] H ospital MANUAL DIFF NOT INDICATED [facility] RBC MORPH NOT INDICATED [facility] spital ID Date Data Source [id number] 01/27/2020 12:10:00 PM EDT [facility] Name Value Range Interpretation Code Description Data Giovana rce(s) Supporting Document(s) Lactate [Moles/volume] in Serum or Plasma 1.8 MMOL/L 0.2 - 2.2 [facility] ID Date Data Source [id number] 01/17/2020 02:07:00 PM EDT [facility] [address] [place] [address] PHONE: [phone] FAX: [phone] Name .................. : GAVIOTA Madison Acct Number.................. : [id number] ROOM. ................. : Number ................... : [id number] Stay type ............. : O/P Discharge Date......... ... : 01/17/20 Admit Date ......... : 01/17/20 Admit Phys .................... : HESTER HARD Date of ....... : 1990 Family Phys ................... : [employer] HARD Phone .................. : [phone] Age ................................ : 29 Film# .................. .:[id number] Sex ................................. : M Unsigned transcriptions are preliminary reports and do not represent a medical or legal document RIBGabriel MERCER W/[place] CX[place] [id number] COMPLETE:01/17/20 10:15 [place] [address] (REASON FOR CHEST: CHEST PAIN LEFT RIB [...] 01/17/20 11:35, Dictation Date: Copy for: [employer] REC Page 1 of 1 Name Value Range Interpretation Code Description Data Giovana rce(s) Supporting Document(s) ID Date Data Source [id number] 01/17/2020 01:27:00 PM EDT [facility] [address] [place] [address] PHONE: [phone] FAX: [phone] Name .................. : GAVIOTA Madison Acct Number.................. : [id number] ROOM. ................. : [facility] MR Number ................... : [id number] Stay type ............. : E/R Discharge Date......... ... : 01/13/20 Admit Date ......... : 01/13/20 Admit Phys .................... : COONEYNORM Date of ....... : 1990 Family Phys ................... : HESTER HARD Phone .................. : [phone] Age ................................ : 29 Film# .................. .:[id number] Sex ................................. : M Unsigned transcriptions are preliminary reports and do not represent a medical or legal document CT HEAD W/O CONTRAST [id number] COMPLETE:01/13/20 17:10 ALVAREZ [address]00 Reason(s): Headache CT OF THE HEAD WITHOUT [...] rce(s) Supporting Document(s) ID Date Data Source [id number] 01/17/2020 01:26:00 [place] [address] PHONE: [phone] FAX: [phone] Name .................. : GAVIOTA ROMERO Los Acct Number.................. : [id number] ROOM. ................. : TR-02 MR Number ................... : [id number] Stay type ............. : E/R Discharge Date......... ... : 01/13/20 Admit Date ......... : 01/13/20 Admit Phys .................... : COONEYNORM Date of ....... : 1990 Family Phys ................... : [employer] H[employer] Phone .................. : [phone] Age ................................ : 29 Film# .................. .:[id number] Sex ................................. : M Unsigned transcriptions are preliminary reports and do not represent a medical or legal document CHEST PORTABLE [id number] COMPLETE:01/13/20 14:18 ARS 76995 Reason(s): Shortness of Breath PORTABLE CHEST X-RAY: [...] rce(s) Supporting Document(s) ID Date Data Source [id number] 01/13/2020 01:42:00 PM EDT [facility] 1 OrderSheet [facility] Emergency Department [address] [place], [place] [address] Phone #: ext- [phone] 01/13/2020 13:41 Patient: [...] Description Priority Entered Acknowledged Initialed 2 OrderSheet [facility] Emergency Department [address] [place] [address] Phone #: ext- [phone] 01/13/2020 13:41 Patient: NICK TRUJILLO Sex: M : 1990 Age: 29y[Electronically signed by Lacho Mcfarland R.N. (20:08 01/13/2020)][Electronically signed by Milagros Morse MD (22:42 01/15/2020)][Electronically locked by Lacho Mcfarland R.N. (20:08 01/13/2020)] Name Value Range Interpretation Code Description Data Giovana rce(s) Supporting Document(s) ID Date Data Source [id number] 01/13/2020 01:42:00 PM EDT [facility] 1 Medication Reconciliation Report [facility] Emergency Department [address] [place] [address] Phone #: ext- [phone] 01/13/2020 13:41 Patient: [...] ODT Oral, prn 2 Medication Reconciliation Report [facility] Emergency Department [address] [place] [address] Phone #: ext- [phone] 01/13/2020 13:41 Patient: NICK TRUJILLO Sex: M : 1990 Age: 29yThe source(s) of the original Home Medication information:Not obtained.The following Medications were given to the patient in the Emergency Department:None.The following Medications were prescribed to the patient:None. Name Value Range Interpretation Code Description [facility] ID Date Data Source [id number] 01/13/2020 01:42:00 PM EDT [facility] 1 Medication Administration Record [facility] Emergency Department [address] [place] [address] Phone #: ext- [phone] 01/13/2020 13:41 Patient: NICK TRUJILLO Sex: M : 1990 Age: 29yWeight: 177.8 kgHeight/Length: 71 inBMI: 54.7ALLERGIES: Dilantin, Naproxsyn, Tylenol with codeinDate/Time Medication Administered Medication Ordered Name Value Range Interpretation Code Description Data Giovana rce(s) Supporting Document(s) ID Date Data Source [id number] 01/13/2020 01:42:00 PM EDT [facility] 1 General Instructions [facility] Emergency Department [address] [place] [address] Phone #: ext- [phone] 01/13/2020 13:41 Patient: [...] instructions verbalized by patient. 2 General Instructions [facility] Emergency Department [address] [place] [address] Phone #: ext- [phone] 01/13/2020 13:41 Patient: NICK TRUJILLO Sex: M : 1990 Age: 29yNo driving or operating machinery.(Electronically signed by Milagros Morse MD 01/15/2020 22:42) Name Value Range Interpretation Code Description Data Giovana rce(s) Supporting Document(s) ID Date Data Source [id number] 01/13/2020 01:42:00 PM EDT [facility] 1 Clinical Report - Nurses [facility] Emergency Department [address] [place] [address] Phone #: ext- [phone] 01/13/2020 13:41 Patient: NICK TRUJILLO Sex: M [...] Banda R.N.PROBLEMS:Hematuria.Asthma. 2 Clinical Report - Nurses [facility] Emergency Department [address] [place] [address] Phone #: ext- [phone] 01/13/2020 13:41 Patient: [...] treatment room. --13:52 01/13/20 Enedina Banda R.N.PHYSICAL [id number] 01/13/20. To room via stretcher.GENERAL / NEURO / PSYCH: Alert. Oriented X 4. Appears in no acute distress. No apparent seizureactivity. Speech within normal limits. Patient appears well-nourished. 3 Clinical Report - Nurses [facility] Emergency Department [address] [place] [address] Phone #: ext- [phone] 01/13/2020 13:41 Patient: [...] Brakes of bed on. --15:44 01/13/20 Lacho Mcfarlnad RShayNShay 16:22 01/13/20. Patient transported to CT by wheelchair with wet process technician. --16:22 01/13/20 Lacho Mcfarland R.N. 16:30 01/13/20. Patient returned from CT by stretcher with wet process technician. --16:30 01/13/20 Lacho Mcfarland R.N. 17:01 [...] or numbness. 4 Clinical Report - Nurses [facility] Emergency Department [address] [place] [address] Phone #: ext- [phone] 01/13/2020 13:41 Patient: [...] Patient verbalized understanding. Written instructions provided in Tajik. The patient was discharged by the physician. [...] rce(s) Supporting Document(s) ID Date Data Source [id number] 01/13/2020 01:42:00 PM EDT [facility] 1 Clinical Report - Physicians/Mid Levels [facility] Emergency Department [address] [place] [address] Phone #: ext- [phone] 01/13/2020 13:41 Patient: NICK TRUJILLO Sex: M [...] daily. 2 Clinical Report - Physicians/Mid Levels [facility] Emergency Department [address] [place] [address] Phone #: ext- [phone] 01/13/2020 13:41 Patient: [...] Progress 3 Clinical Report - Physicians/Mid Levels [facility] Emergency Department [address] [place] [address] Phone #: ext- [phone] 01/13/2020 13:41 Patient: NICK TRUJILLO Sex: M [...] 56) 4 Clinical Report - Physicians/Mid Levels [facility] Emergency Department [address] [place] [address] Phone #: ext- [phone] 01/13/2020 13:41 Patient: [...] 60) Lactic Acid: (KAVITA: 01/13/2020 14:13) ( [facility] 01/13/[place] 14:35) Final results Test Result Flag [...] Portable 1 View: (KAVITA: 01/13/2020 13:56[facility] 01/13[facility] 14:19) In Progress CHEST PORTABLE Reason(s): [...] any 5 Clinical Report - Physicians/Mid Levels [facility] Emergency Department [address] [place] [address] Phone #: ext- [phone] 01/13/2020 13:41 Patient: NICK TRUJILLO [facility]#: [id number] Sex: M : 1990 Age: 29y activities [...] patient. 6 Clinical Report - Physicians/Mid Levels [facility] Emergency Department [address] [place] [address] Phone #: eme- [phone] 01/13/2020 13:41 Patient: NICK TRUJILLO Sex: M : 1990 Age: 29y(Electronically signed by Milagros Morse MD 01/15/2020 22:42) Name Value Range Interpretation Code Description Data Giovana rce(s) Supporting Document(s) ID Date Data Source [id number] 12/31/2019 01:56:00 [place] [address] OPERATIVE SUMMARYNAME: GAVIOTA Madison DATE OF : 1990ATTENDING PHYS: SALVADOR KAMARA MD DATE: 12/31/19 MR#: [id number] OF PROCEDURE: 12/31/2019PRE-OPERATIVE DIAGNOSIS:Microscopic hematuria.POST-OPERATIVE DIAGNOSIS:Microscopic hematuria.PROCEDURE PERFORMED:Flexible cy stoscopy.ATTENDING SURGEON: Dr. Salvador Kamara.PHYSICIAN SENIOR JAVASCRIPT DEVELOPER: CLYDE Farias.ANESTHESIA: Local.ESTIMATED BLOOD LOSS: Minimal.COMPLICATIONS: None.DRAINS: [...] urethra. No dense or long strictures [address] [place] [id number] OPERATIVE SUMMARYNAME: GAVIOTA Madison DATE OF : 1990ATTENDING PHYS: SALVADOR KAMARA MD DATE: 12/31/19 MR#: [id number] noted. The rest of the cystoscopy was [...] rce(s) Supporting Document(s) ID Date Data Source [id number] 01/13/2020 02:58:00 PM EDT [facility] ([facility]) Name Value Range Interpretation Code Description Data Giovana rce(s) Supporting Document(s) Topiramate [Mass/volume] in Serum or Plasma 8.7 ug/mL 2.0-25.0 [facility] ([facility]) This test was developed and its performa nce characteristics determined by [facility]. It has not been cleared or approved by the Food and Drug Administration. Detection Limit = 1.0 ID Date Data Source [id number] 01/17/2020 08:03:00 PM EDT [facility] Name Value Range Interpretation Code Description Data Giovana rce(s) Supporting Document(s) Topiramate [Mass/volume] in Serum or Plasma 8.7 ug/mL 2.0-25.0 [facility] This test was developed and its performa nce characteristicsdetermined by [facility]. It has not been cleared or approvedby the Food and Drug Administration. Detection Limit = 1.0 ID Date Data Source [id number] 01/13/2020 02:13:00 PM EDT [facility] ([facility]) Name Value Range Interpretation Code Description Data Giovana rce(s) Supporting Document(s) CBC W/Automated Diff Laboratory test result [facility] ([facility]) COMPLETE BLOOD COUNT WBC 8.6 10^3/uL 4.2-11.0 [facility] ([facility]) RBC 5.69 10^6/uL 4.50-6.30 [facility] ([facility]) Hemoglobin 16.2 g/dL 14.0-16.0 Above high normal [facility] ([facility]) Hematocrit 50.7 % 41.0-51.0 [facility] ([facility]) MCH 28.5 pg 27.0-34.0 [facility] ([facility]) MCV 89.1 fL 80.0-94.0 [facility] ([facility]) RDW 13.7 % 11.5-14.8 [facility] ([facility]) MCHC 32.0 g/dL 31.0-36.0 [facility] ([facility]) Platelets 212 10^3/uL 150-450 [facility] ([facility]) MPV 9.0 fL 7.4-10.4 [facility] ([facility]) Neut 68.4 % 37.0-80.0 [facility] ([facility]) Lymph 20.7 % 25.0-40.0 Below low normal [facility] ( [facility]) Arenac 7.7 % 3.0-8.0 [facility] ([facility]) Baso 0.1 % 0.0-2.0 [facility] ([facility]) Eos 2.9 % 0.0-7.0 [facility] ([facility]) %Ig 0.2 % 0.0-0.0 Above high normal [facility] ([facility]) #Neut 5.84 10^3/uL 2.00-6.90 [facility] ([facility]) %NRBC 0.0 % 0.0-0.0 [facility] ([facility]) #Lymph 1.77 10^3/uL 0.60-3.40 [facility] ([facility]) #Baso 0.01 10^3/uL 0.00-0.20 [facility] ([facility]) #Arenac 0.66 10^3/uL 0.00-0.90 [facility] ([facility]) #Eos 0.25 10^3/uL 0.00-0.70 [facility] ([facility]) #Ig 0.02 10^3/uL 0.00-0.10 [facility] ([facility]) RBC Morph Laboratory test result [facility] ([facility]) #NRBC 0.00 10^3/uL 0.00-0.00 [facility] ([facility]) Manual Diff Laboratory test result M [facility] ([facility]) ID Date Data Source [id number] 01/13/2020 02:13:00 PM EDT [facility] ([facility]) Name Value Range Interpretation Code Description Data Giovana rce(s) Supporting Document(s) Lipase [Enzymatic activity/volume] in Serum or Plasma 32 U/L 13-6 0 [facility] ([facility]) Lactate [Mass/volume] in Serum or Plasma 1.9 mmol/L 0.2-2.2 [facility] ([facility]) ID Date Data Source [id number] 01/13/2020 02:13:00 PM EDT [facility] ([facility]) Name Value Range Interpretation Code Description Data Giovana rce(s) Supporting Document(s) Comprehensive [employer] Laboratory test result [facility] ([facility]) COMPREHENSIVE METABOLIC PANEL Sodium 143 meq/L 134-153 [facility] ([facility]) Co2 24 meq/L 22-30 [facility] ([facility]) Chloride 108 meq/L 98-107 Above high normal [facility] ([facility]) Potassium 4.0 meq/L 3.6-5.0 [facility] ([facility]) Creatinine 0.9 mg/dL 0.7-1.5 [facility] ([facility]) BUN 12 mg/dL 7-21 [facility] ([facility]) Glucose 141 mg/dL 65-110 Above high normal [facility] ([facility]) Total Protein 7.6 g/dL 6.3-8.2 [facility] ([facility]) Albumin 4.4 g/dL 3.9-5.0 [facility] ([facility]) BUN/Creat 13 8-27 [facility] ([facility]) Globulin 3.2 GM/DL 2.4-3.2 [facility] ([facility]) Calcium 9.1 mg/dL 8.4-10.2 [facility] ([facility]) A/G Ratio 1.4 0.8-2.0 [facility] ([facility]) Total Bili Laboratory test result 0.2-1.3 [facility] ([facility]) Alkaline Phos 96 U/L 38-126 [facility] ([facility]) Sgot/Ast 20 U/L 5-40 [facility] ([facility]) Age 29 yrs [facility] ([facility]) Anion Gap 11.0 mmol/L 8.0-16.0 [facility] ([facility]) SGPT/Alt 29 U/L 7-56 [facility] ([facility]) Non-Aa GFR Laboratory test result [facility] ([facility]) Afr Amer GFR Laboratory test result [facility] ([facility]) Male GFR Interprentation 20-49 yrs >60 [...] >32 mL/min Normal ID Date Data Source [id number] 01/13/2020 02:56:00 PM EDT [facility] Name Value Range Interpretation Code Description Data Giovana rce(s) Supporting Document(s) COMPREHENSIVE METABOLIC PANEL [facility] COMPREHENSIVE METABOLIC PANEL Sodium [Moles/volume] in Serum or Plasma 143 mEq/L 134 - 153 [facility] Potassium [Moles/volume] in Serum or Plasma 4.0 mEq/L 3.6 - 5.0 [facility] Chloride [Moles/volume] in Serum or Plasma 108 mEq/L 98 - 107 H [facility] Carbon dioxide, total [Moles/volume] in Serum or Plasma 24 MEQ/L 22 - 30 [facility] Glucose [Mass/volume] in Serum or Plasma 141 MG/DL 65 - 110 H [facility] BUN 12 MG/DL 7 - 21 [facility] Creatinine [Mass/volume] in Serum or Plasma 0.9 MG/DL 0.7 - 1.5 [facility] BUN/CREAT 13 8 - 27 [facility] Protein [Mass/volume] in Serum or Plasma 7.6 G/DL 6.3 - 8.2 [facility] Albumin [Mass/volume] in Serum or Plasma 4.4 G/DL 3.9 - 5.0 [facility] Globulin [Mass/volume] in Serum by calculation 3.2 GM/DL 2.4 - 3.2 [facility] A/G RATIO 1.4 0.8 - 2.0 [facility] Calcium [Mass/volume] in Serum or Plasma 9.1 MG/DL 8.4 - 10.2 [facility] Bilirubin.total [Mass/volume] in Serum or Plasma <0.7 MG/DL 0.2 - 1.3 [facility] Alkaline phosphatase [Enzymatic activity/volume] in Serum or Plasma 96 U/L 38 - 126 [facility] Aspartate aminotransferase [Enzymatic activity/volume] in Serum or Plasma 20 U/L 5 - 40 [facility] Alanine aminotransferase [Enzymatic activity/volume] in Seru m or Plasma 29 U/L 7 - 56 [facility] Anion gap 3 in Serum or Plasma 11.0 mmol/L 8.0 - 16.0 [facility] AGE 29 yrs [facility] NON-AA GFR >60 mL/min [facility] ital AFR AMER GFR >60 mL/min [facility] Ho spital Male GFR In [...] >32 mL/min Normal ID Date Data Source [id number] 01/13/2020 02:43:00 PM EDT [facility] Name Value Range Interpretation Code Description Data Giovana rce(s) Supporting Document(s) Lipase [Enzymatic activity/volume] in Serum or Plasma 32 U/L 13 - 60 [facility] ID Date Data Source [id number] 01/13/2020 02:35:00 PM EDT [facility] Name Value Range Interpretation Code Description Data Giovana rce(s) Supporting Document(s) Lactate [Moles/volume] in Serum or Plasma 1.9 MMOL/L 0.2 - 2.2 [facility] ID Date Data Source [id number] 01/13/2020 02:27:00 PM EDT [facility] Name Value Range Interpretation Code Description Data Giovana rce(s) Supporting Document(s) CBC W/AUTOMATED DIFF [facility] COMPLETE BLOOD COUNT Leukocytes [#/volume] in Blood by Automated count 8.6 10^3/uL 4.2 - 1 1.0 [facility] Erythrocytes [#/volume] in Blood by Automated count 5.69 10^6/uL 4. 50 - 6.30 [facility] Hemoglobin [Mass/volume] in Blood 16.2 g/dL 14.0 - 16.0 H [facility] Hematocrit [Volume Fraction] of Blood by Automated count 50.7 % 4 1.0 - 51.0 [facility] Erythrocyte mean corpuscular volume [Entitic volume] by Auto mated count 89.1 fL 80.0 - 94.0 [facility] Erythrocyte mean corpuscular hemoglobin [Entitic mass] by Automated count 28.5 pg 27.0 - 34.0 [facility] Erythrocyte mean corpuscular hemoglobin concentration [Mass/volume] by Automated count 32.0 g/dL 31.0 - 36.0 [facility] Erythrocyte distribution width [Ratio] by Automated count 13.7 % 11.5 - 14.8 [facility] Platelets [#/volume] in Blood by Automated count 212 10^3/uL 150 - 45 0 [facility] Platelet mean volume [Entitic volume] in Blood by Automated count 9.0 fL 7.4 - 10.4 [facility] Neutrophils/100 leukocytes in Blood by Automated count 68.4 % 37. 0 - 80.0 [facility] Lymphocytes/100 leukocytes in Blood by Manual count 20.7 % 25.0 - 40.0 L [facility] Monocytes/100 leukocytes in Blood by Automated count 7.7 % 3.0 - 8.0 [facility] Eosinophils/100 leukocytes in Blood by Automated count 2.9 % 0.0 - 7.0 [facility] Basophils/100 leukocytes in Blood by Automated count 0.1 % 0.0 - 2.0 [facility] %IG 0.2 % 0.0 - 0.0 H [facility] Hospit al %NRBC 0.0 % 0.0 - 0.0 [facility] al Neutrophils [#/volume] in Blood by Automated count 5.84 10^3/uL 2.00 - 6.90 [facility] Lymphocytes [#/volume] in Blood by Automated count 1.77 10^3/uL 0.60 - 3.40 [facility] Monocytes [#/volume] in Blood by Automated count 0.66 10^3/uL 0.00 - 0.90 [facility] Eosinophils [#/volume] in Blood by Automated count 0.25 10^3/uL 0.00 - 0.70 [facility] Basophils [#/volume] in Blood by Automated count 0.01 10^3/uL 0.00 - 0.20 [facility] #IG 0.02 10^3/uL 0.00 - 0.10 [facility] ospital #NRBC 0.00 10^3/uL 0.00 - 0.00 [facility] ospital MANUAL DIFF NOT INDICATED [facility] RBC MORPH NOT INDICATED [facility] spital ID Date Data Source [id number] 01/13/2020 01:56:00 PM EDT [facility] ([facility]) Name Value Range Interpretation Code Description Data Giovana rce(s) Supporting Document(s) Urinalysis Laboratory test result [facility] ([facility]) URINALYSIS Source Laboratory test result [facility] ([facility]) SOURCE: Clean Catch Color Laboratory test result [facility] ([facility]) SOURCE: Clean Catch Clarity Laboratory test result [facility] ([facility]) SOURCE: Clean Catch Spec [place] 1.005 1.001-1.030 [facility] ([facility]) SOURCE: Clean Catch pH 8 5-9 [facility] ([facility]) SOURCE: Clean Catch Bilirubin Laboratory test result [facility] ([facility]) SOURCE: Clean Catch Glucose Laboratory test result [facility] ([facility]) SOURCE: Clean Catch Ketone Laboratory test result [facility] ([facility]) SOURCE: Clean Catch Protein Laboratory test result [facility] ([facility]) SOURCE: Clean Catch Blood Laboratory test result [facility] ([facility]) SOURCE: Clean Catch Nitrite Laboratory test result [facility] ([facility]) SOURCE: Clean Catch Leuk Est Laboratory test result [facility] ([facility]) SOURCE: Clean Catch Urobilinogen Laboratory test result [facility] ([facility]) SOURCE: Clean Catch Microscopic Laboratory test result M [facility] ([facility]) SOURCE: Clean Catch ID Date Data Source [id number] 01/13/2020 02:06:00 PM EDT [facility] Name Value Range Interpretation Code Description Data Giovana rce(s) Supporting Document(s) URINALYSIS [facility] URINALYSIS SOURCE R [facility] Hospit al COLOR yellow NORMAL: Yellow [facility] H ospital CLARITY clear NORMAL: Clear [facility] Ho spital Specific gravity of Urine by Test strip 1.005 1.001 - 1.030 [facility] pH 8 5 - 9 [facility] Glucose [Mass/volume] in Urine by Test strip NORM NORMAL: Negat [facility] Bilirubin.total [Presence] in Urine by Test strip NEG NORMAL: Negative [facility] Ketones [Presence] in Urine by Test strip NEG NORMAL: Negative [facility] Protein [Mass/volume] in Urine by Test strip NEG NORMAL: Negat [facility] Nitrite [Presence] in Urine by Test strip NEG NORMAL: Negative [facility] BLOOD NEG NORMAL: Negative [facility] Leukocyte esterase [Presence] in Urine by Test strip NEG MILAGROS L: Negative [facility] Urobilinogen [Mass/volume] in Urine by Test strip NOR less vanessa n 1.0 mg/dL [facility] MICROSCOPIC Not Indicate [facility] H ospital ID Date Data Source [id number] 01/12/2020 01:25:00 PM EDT [facility] ([facility]) Name Value Range Interpretation Code Description Data Giovana rce(s) Supporting Document(s) Ribs Unilat W/PA CXR LT Laboratory test result [facility] ([facility]) ID Date Data Source [id number] 12/28/2019 09:15:00 AM EDT [facility] ([facility]) Name Value Range Interpretation Code Description Data Giovana rce(s) Supporting Document(s) Coronavirus Covid-19 Laboratory test result [facility] ([facility]) This test was developed and its performa nce characteristics determined by [facility]. This test has not been FDA cleared [...] in this assay. ID Date Data Source [id number] 12/28/2019 09:15:00 AM EDT [facility] Name Value Range Interpretation Code Description Data Giovana rce(s) Supporting Document(s) SARS CORONAVIRUS 2 RNA [facility] This lab was ordered by [facility] Haider huerta and reported by [facility]. ID Date Data Source [id number] 12/30/2019 06:32:00 AM EDT [facility] Name Value Range Interpretation Code Description Data Giovana rce(s) Supporting Document(s) SARS-CoV-2, TYRON Not Detected Not Detected [facility] This test was developed and its performa nce characteristics determinedby [facility]. This test has not been FDA cleared [...] in this assay. ID Date Data Source [id number] 11/22/2019 09:49:00 AM EDT [facility] [address] [place] [address] PHONE: [phone] FAX: [phone] Name .................. : GAVIOTA [place] Acct Number.................. : [id number] ROOM. ................. : MR Number ................... : [id number] Stay type ............. : O/P Discharge Date......... ... : 11/19/19 Admit Date ......... : 11/19/19 Admit Phys .................... : HESTER HARD Date of ....... : 1990 Family Phys ................... : HESTER HARD Phone .................. : [phone] Age ................................ : 29 Film# .................. .:[id number] Sex ................................. : M Unsigned transcriptions are preliminary reports and do not represent a medical or legal document SPINE LS COMPLETE [id number] COMPLETE:11/19/19 10:39 40698 (SPINE PROC REASON: PAIN LUMBAR SPINE X-RAY: [...] Date: 11/19/19 15:31, Dictation Date: Copy for: [address] [place] [address] REC Page 1 of 1 Name Value Range Interpretation Code Description Data Giovana rce(s) Supporting Document(s) ID Date Data Source [id number] 11/22/2019 09:49:00 AM EDT [facility] [address] [place] [address] PHONE: [phone] FAX: [phone] Name .................. : GAVIOTA ROMERO [place] Acct Number.................. : [id number] ROOM. ................. : MR Number ................... : [id number] Stay type ............. : O/P Discharge Date......... ... : 11/19/19 Admit Date ......... : 11/19/19 Admit Phys .................... : HESTER HARD Date of ....... : 1990 Family Phys ................... : [employer] HARD Phone .................. : [phone] Age ................................ : 29 Film# .................. .:[id number] Sex ................................. : M Unsigned transcriptions are preliminary reports and do not represent a medical or legal document SPINE THORACIC [id number] COMPLETE:11/19/19 10:39 [id number] (SPINE PROC REASON: PAIN THORACIC SPINE SERIES: [...] Date: 11/19/19 15:30, Dictation Date: Copy for: [address] [place] [address] REC Page 1 of 1 Name Value Range Interpretation Code Description Data Giovana rce(s) Supporting Document(s) ID Date Data Source [id number] 11/18/2019 03:15:00 PM EDT [facility] ([facility]) Name Value Range Interpretation Code Description Data [facility] rce(s) Supporting Document(s) Source Laboratory test result [facility] ([facility]) Is patient fasting? N {SOURCE: Random Void~NURSE COLLECTED? N Is patient fasting? N Urinalysis Laboratory test result [facility] ([facility]) Is patient fasting? N {SOURCE: Random Void~NURSE COLLECTED? N Is patient fasting? N Color Laboratory test result [facility] ([facility]) Is patient fasting? N {SOURCE: Random Void~NURSE COLLECTED? N Is patient fasting? N Clarity Laboratory test result [facility] ([facility]) Is patient fasting? N {SOURCE: Random Void~NURSE COLLECTED? N Is patient fasting? N Glucose Laboratory test result [facility] ([facility]) Is patient fasting? N {SOURCE: Random Void~NURSE COLLECTED? N Is patient fasting? N pH 5 5-9 [facility] ([facility]) Is patient fasting? N {SOURCE: Random Void~NURSE COLLECTED? N Is patient fasting? N Spec [place] 1.015 1.001-1.030 [facility] ([facility]) Is patient fasting? N {SOURCE: Random Void~NURSE COLLECTED? N Is patient fasting? N Bilirubin Laboratory test result [facility] ([facility]) Is patient fasting? N {SOURCE: Random Void~NURSE COLLECTED? N Is patient fasting? N Protein Laboratory test result [facility] ([facility]) Is patient fasting? N {SOURCE: Random Void~NURSE COLLECTED? N Is patient fasting? N Ketone Laboratory test result [facility] ([facility]) Is patient fasting? N {SOURCE: Random Void~NURSE COLLECTED? N Is patient fasting? N Blood Laboratory test result [facility] ([facility]) Is patient fasting? N {SOURCE: Random Void~NURSE COLLECTED? N Is patient fasting? N Nitrite Laboratory test result [facility] ([facility]) Is patient fasting? N {SOURCE: Random Void~NURSE COLLECTED? N Is patient fasting? N Microscopic Laboratory test result [facility] ([facility]) Is patient fasting? N {SOURCE: Random Void~NURSE COLLECTED? N Is patient fasting? N Leuk Est Laboratory test result [facility] ([facility]) Is patient fasting? N {SOURCE: Random Void~NURSE COLLECTED? N Is patient fasting? N Urobilinogen Laboratory test result [facility] ([facility]) Is patient fasting? N {SOURCE: Random Void~NURSE COLLECTED? N Is patient fasting? N ID Date Data Source [id number] 11/18/2019 03:15:00 PM EDT [facility] ([facility]) Name Value Range Interpretation Code Description Data Giovana rce(s) Supporting Document(s) Thyrotropin [Units/volume] in Serum or Plasma 1.85 uIU/mL 0.47-5.01 [facility] ([facility]) Is patient fasting? N {SOURCE: Random Void~NURSE COLLECTED? N Is patient fasting? N Thyroxine (T4) free [Mass/volume] in Serum or Plasma 0.72 ng/dL 0.93-1.70 Below low normal [facility] ([facility]) Is patient fasting? N {SOURCE: Random Void~NURSE COLLECTED? N Is patient fasting? N Hemoglobin A1c/Hemoglobin.total in Blood 4.3 % 4.4-6.1 Below low normal [facility] ([facility]) Is patient fasting? N {SOURCE: Random Void~NURSE COLLECTED? N Is patient fasting? N ID Date Data Source [id number] 11/18/2019 03:15:00 PM EDT [facility] ([facility]) Name Value Range Interpretation Code Description Data Giovana rce(s) Supporting Document(s) Cve Panel Laboratory test result [facility] ([facility]) Is patient fasting? N {SOURCE: Random Void~NURSE COLLECTED? N Is patient fasting? N Cholesterol 220 mg/dL 131-200 Above high normal [facility] ([facility]) Is patient fasting? N {SOURCE: Random Void~NURSE COLLECTED? N Is patient fasting? N HDL 46 mg/dL 29-86 [facility] ([facility]) Is patient fasting? N {SOURCE: Random Void~NURSE COLLECTED? N Is patient fasting? N Triglycerides 250 mg/dL 35-160 Above high normal [facility] ([facility]) Is patient fasting? N {SOURCE: Random Void~NURSE COLLECTED? N Is patient fasting? N LDL/HDL 3.46 1.00-3.55 [facility] ([facility]) Is patient fasting? N {SOURCE: Random Void~NURSE COLLECTED? N Is patient fasting? N LDL 159 mg/dL 65-175 [facility] ([facility]) Is patient fasting? N {SOURCE: Random Void~NURSE COLLECTED? N Is patient fasting? N Risk Factor 4.8 3.4-4.9 [facility] ([facility]) Is patient fasting? N {SOURCE: Random Void~NURSE COLLECTED? N Is patient fasting? N ID Date Data Source [id number] 11/18/2019 03:15:00 PM EDT [facility] ([facility]) Name Value Range Interpretation Code Description Data Giovana rce(s) Supporting Document(s) Comprehensive Metabo Laboratory test result [facility] ([facility]) Is patient fasting? N {SOURCE: Random Void~NURSE COLLECTED? N Is patient fasting? N Chloride 104 meq/L 98-107 [facility] ([facility]) Is patient fasting? N {SOURCE: Random Void~NURSE COLLECTED? N Is patient fasting? N Potassium 4.0 meq/L 3.6-5.0 [facility] ([facility]) Is patient fasting? N {SOURCE: Random Void~NURSE COLLECTED? N Is patient fasting? N Sodium 142 meq/L 134-153 [facility] ([facility]) Is patient fasting? N {SOURCE: Random Void~NURSE COLLECTED? N Is patient fasting? N Co2 27 meq/L 22-30 [facility] ([facility]) Is patient fasting? N {SOURCE: Random Void~NURSE COLLECTED? N Is patient fasting? N Glucose 91 mg/dL 65-110 [facility] ([facility]) Is patient fasting? N {SOURCE: Random Void~NURSE COLLECTED? N Is patient fasting? N BUN/Creat 17 8-27 [facility] ([facility]) Is patient fasting? N {SOURCE: Random Void~NURSE COLLECTED? N Is patient fasting? N BUN 15 mg/dL 7-21 [facility] ([facility]) Is patient fasting? N {SOURCE: Random Void~NURSE COLLECTED? N Is patient fasting? N Creatinine 0.9 mg/dL 0.7-1.5 [facility] ([facility]) Is patient fasting? N {SOURCE: Random Void~NURSE COLLECTED? N Is patient fasting? N Albumin 4.4 g/dL 3.9-5.0 [facility] ([facility]) Is patient fasting? N {SOURCE: Random Void~NURSE COLLECTED? N Is patient fasting? N Globulin 3.2 GM/DL 2.4-3.2 [facility] ([facility]) Is patient fasting? N {SOURCE: Random Void~NURSE COLLECTED? N Is patient fasting? N Total Protein 7.6 g/dL 6.3-8.2 [facility] ([facility]) Is patient fasting? N {SOURCE: Random Void~NURSE COLLECTED? N Is patient fasting? N Calcium 9.3 mg/dL 8.4-10.2 [facility] ([facility]) Is patient fasting? N {SOURCE: Random Void~NURSE COLLECTED? N Is patient fasting? N A/G Ratio 1.4 0.8-2.0 [facility] ([facility]) Is patient fasting? N {SOURCE: Random Void~NURSE COLLECTED? N Is patient fasting? N Total Bili Laboratory test result 0.2-1.3 [facility] ([facility]) Is patient fasting? N {SOURCE: Random Void~NURSE COLLECTED? N Is patient fasting? N Alkaline Phos 114 U/L 38-126 [facility] ([facility]) Is patient fasting? N {SOURCE: Random Void~NURSE COLLECTED? N Is patient fasting? N Sgot/Ast 22 U/L 5-40 [facility] ([facility]) Is patient fasting? N {SOURCE: Random Void~NURSE COLLECTED? N Is patient fasting? N Age 29 yrs [facility] ([facility]) Is patient fasting? N {SOURCE: Random Void~NURSE COLLECTED? N Is patient fasting? N SGPT/Alt 34 U/L 7-56 [facility] ([facility]) Is patient fasting? N {SOURCE: Random Void~NURSE COLLECTED? N Is patient fasting? N Anion Gap 11.0 mmol/L 8.0-16.0 [facility] ([facility]) Is patient fasting? N {SOURCE: Random Void~NURSE COLLECTED? N Is patient fasting? N Afr Amer GFR Laboratory test result [facility] ([facility]) Is patient fasting? N {SOURCE: Random Void~NURSE COLLECTED? N Is patient fasting? N Non-Aa GFR Laboratory test result [facility] ([facility]) Is patient fasting? N {SOURCE: Random Void~NURSE COLLECTED? N Is patient fasting? N ID Date Data Source [id number] 11/18/2019 03:15:00 PM EDT [facility] ([facility]) Name Value Range Interpretation Code Description Data Giovana rce(s) Supporting Document(s) RBC 5.74 10^6/uL 4.50-6.30 [facility] ([facility]) Is patient fasting? N {SOURCE: Random Void~NURSE COLLECTED? N Is patient fasting? N CBC W/Automated Diff Laboratory test result [facility] ([facility]) Is patient fasting? N {SOURCE: Random Void~NURSE COLLECTED? N Is patient fasting? N WBC 9.5 10^3/uL 4.2-11.0 [facility] ([facility]) Is patient fasting? N {SOURCE: Random Void~NURSE COLLECTED? N Is patient fasting? N Hemoglobin 16.5 g/dL 14.0-16.0 Above high normal [facility] ([facility]) Is patient fasting? N {SOURCE: Random Void~NURSE COLLECTED? N Is patient fasting? N MCV 87.5 fL 80.0-94.0 [facility] ([facility]) Is patient fasting? N {SOURCE: Random Void~NURSE COLLECTED? N Is patient fasting? N Hematocrit 50.2 % 41.0-51.0 [facility] ([facility]) Is patient fasting? N {SOURCE: Random Void~NURSE COLLECTED? N Is patient fasting? N RDW 13.7 % 11.5-14.8 [facility] ([facility]) Is patient fasting? N {SOURCE: Random Void~NURSE COLLECTED? N Is patient fasting? N MCHC 32.9 g/dL 31.0-36.0 [facility] ([facility]) Is patient fasting? N {SOURCE: Random Void~NURSE COLLECTED? N Is patient fasting? N MCH 28.7 pg 27.0-34.0 [facility] ([facility]) Is patient fasting? N {SOURCE: Random Void~NURSE COLLECTED? N Is patient fasting? N MPV 9.2 fL 7.4-10.4 [facility] ([facility]) Is patient fasting? N {SOURCE: Random Void~NURSE COLLECTED? N Is patient fasting? N Platelets 202 10^3/uL 150-450 [facility] ([facility]) Is patient fasting? N {SOURCE: Random Void~NURSE COLLECTED? N Is patient fasting? N Neut 67.2 % 37.0-80.0 [facility] ([facility]) Is patient fasting? N {SOURCE: Random Void~NURSE COLLECTED? N Is patient fasting? N Arenac 7.2 % 3.0-8.0 [facility] ([facility]) Is patient fasting? N {SOURCE: Random Void~NURSE COLLECTED? N Is patient fasting? N Eos 3.6 % 0.0-7.0 [facility] ([facility]) Is patient fasting? N {SOURCE: Random Void~NURSE COLLECTED? N Is patient fasting? N Lymph 21.5 % 25.0-40.0 Below low normal [facility] ( [facility]) Is patient fasting? N {SOURCE: Random Void~NURSE COLLECTED? N Is patient fasting? N Baso 0.2 % 0.0-2.0 [facility] ([facility]) Is patient fasting? N {SOURCE: Random Void~NURSE COLLECTED? N Is patient fasting? N %NRBC 0.0 % 0.0-0.0 [facility] ([facility]) Is patient fasting? N {SOURCE: Random Void~NURSE COLLECTED? N Is patient fasting? N %Ig 0.3 % 0.0-0.0 Above high normal [facility] ([facility]) Is patient fasting? N {SOURCE: Random Void~NURSE COLLECTED? N Is patient fasting? N #Neut 6.39 10^3/uL 2.00-6.90 [facility] ([facility]) Is patient fasting? N {SOURCE: Random Void~NURSE COLLECTED? N Is patient fasting? N #Lymph 2.04 10^3/uL 0.60-3.40 [facility] ([facility]) Is patient fasting? N {SOURCE: Random Void~NURSE COLLECTED? N Is patient fasting? N #[place]renac 0.68 10^3/uL 0.00-0.90 [facility] ([facility]) Is patient fasting? N {SOURCE: Random Void~NURSE COLLECTED? N Is patient fasting? N #Baso 0.02 10^3/uL 0.00-0.20 [facility] ([facility]) Is patient fasting? N {SOURCE: Random Void~NURSE COLLECTED? N Is patient fasting? N #Ig 0.03 10^3/uL 0.00-0.10 [facility] ([facility]) Is patient fasting? N {SOURCE: Random Void~NURSE COLLECTED? N Is patient fasting? N #Eos 0.34 10^3/uL 0.00-0.70 [facility] ([facility]) Is patient fasting? N {SOURCE: Random Void~NURSE COLLECTED? N Is patient fasting? N #NRBC 0.00 10^3/uL 0.00-0.00 [facility] ([facility]) Is patient fasting? N {SOURCE: Random Void~NURSE COLLECTED? N Is patient fasting? N Manual Diff Laboratory test result [facility] ([facility]) Is patient fasting? N {SOURCE: Random Void~NURSE COLLECTED? N Is patient fasting? N RBC Morph Laboratory test result [facility] ([facility]) Is patient fasting? N {SOURCE: Random Void~NURSE COLLECTED? N Is patient fasting? N ID Date Data Source [id number] 11/18/2019 07:45:00 PM EDT [facility] Name Value Range Interpretation Code Description Data Giovana rce(s) Supporting Document(s) CVE PANEL [facility] LIPID PANEL Cholesterol [Mass/volume] in Serum or Plasma 220 MG/DL 131 - 200 H [facility] Deprecated Triglyceride [Mass/volume] in Serum or Plasma 250 MG/DL 3 5 - 160 H [facility] HDL 46 MG/DL 29 - 86 [facility] Cholesterol in LDL/Cholesterol in HDL [Mass Ratio] in Serum or Plasma 159 mg/dL 65 - 175 [facility] Cholesterol.total/Cholesterol in HDL [Mass Ratio] in Serum o r Plasma 4.8 3.4 - 4.9 [facility] LDL/HDL 3.46 1.00 - 3.55 [facility] CVE RISK CHOL/HDL LDL/HDLMEN: 1/2 AVERAGE 3.43 1.00 AVERAGE 4.97 3.55 2X AVERAGE 9.55 6.25 3X AVERAGE 23.99 7.99WOMEN: 1/2 AVERAGE 3.27 1.47 AVERAGE 4.44 3.22 2X AVERAGE 7.05 5.03 3X AVERAGE 11.04 6.14 ID Date Data Source [id number] 11/18/2019 07:27:00 PM EDT [facility] Name Value Range Interpretation Code Description Data Giovana rce(s) Supporting Document(s) URINALYSIS [facility] URINALYSIS SOURCE R [facility] COLOR yellow NORMAL: Yellow [facility] H [facility]spital CLARITY clear NORMAL: Clear [facility] Ho spital Specific gravity of Urine by Test strip 1.015 1.001 - 1.030 [facility] pH 5 5 - 9 [facility] Glucose [Mass/volume] in Urine by Test strip NORM NORMAL: Negat [facility] Bilirubin.total [Presence] in Urine by Test strip NEG NORMAL: Negative [facility] Ketones [Presence] in Urine by Test strip NEG NORMAL: Negative [facility] Protein [Mass/volume] in Urine by Test strip NEG NORMAL: Negat [facility] Nitrite [Presence] in Urine by Test strip NEG NORMAL: Negative [facility] BLOOD NEG NORMAL: Negative [facility] Leukocyte esterase [Presence] in Urine by Test strip NEG MILAGROS L: Negative [facility] Urobilinogen [Mass/volume] in Urine by Test strip NOR less vanessa n 1.0 mg/dL [facility] MICROSCOPIC Not Indicate [facility] H ospital ID Date Data Source [id number] 11/18/2019 07:44:00 PM EDT [facility] Name Value Range Interpretation Code Description Data Giovana rce(s) Supporting Document(s) Hemoglobin A1c/Hemoglobin.total in Blood 4.3 % 4.4 - 6.1 L [facility] {A1]{HB] ID Date Data Source [id number] 11/18/2019 07:54:00 PM EDT [facility] Name Value Range Interpretation Code Description Data Giovana rce(s) Supporting Document(s) Thyroxine (T4) free index in Serum or Plasma by calculation 0.72 NG/DL 0.93 - 1.70 L [facility] ID Date Data Source [id number] 11/18/2019 07:54:00 PM EDT [facility] Name Value Range Interpretation Code Description Data Giovana rce(s) Supporting Document(s) Thyrotropin [Units/volume] in Serum or Plasma by Detec tion limit <= 0.05 mIU/L 1.85 uIU/mL 0.47 - 5.01 [facility] ID Date Data Source [id number] 11/18/2019 07:45:00 PM EDT [facility] Name Value Range Interpretation Code Description Data Giovana rce(s) Supporting Document(s) COMPREHENSIVE METABOLIC PANEL [facility] COMPREHENSIVE METABOLIC PANEL Sodium [Moles/volume] in Serum or Plasma 142 mEq/L 134 - 153 [facility] Potassium [Moles/volume] in Serum or Plasma 4.0 mEq/L 3.6 - 5.0 [facility] Chloride [Moles/volume] in Serum or Plasma 104 mEq/L 98 - 107 [facility] Carbon dioxide, total [Moles/volume] in Serum or Plasma 27 MEQ/L 22 - 30 [facility] Glucose [Mass/volume] in Serum or Plasma 91 MG/DL 65 - 110 [facility] BUN 15 MG/DL 7 - 21 [facility] Creatinine [Mass/volume] in Serum or Plasma 0.9 MG/DL 0.7 - 1.5 [facility] BUN/CREAT 17 8 - 27 [facility] al Protein [Mass/volume] in Serum or Plasma 7.6 G/DL 6.3 - 8.2 [facility] Albumin [Mass/volume] in Serum or Plasma 4.4 G/DL 3.9 - 5.0 [facility] Globulin [Mass/volume] in Serum by calculation 3.2 GM/DL 2.4 - 3.2 [facility] A/G RATIO 1.4 0.8 - 2.0 [facility] al Calcium [Mass/volume] in Serum or Plasma 9.3 MG/DL 8.4 - 10.2 [facility] Bilirubin.total [Mass/volume] in Serum or Plasma <0.7 MG/DL 0.2 - 1.3 [facility] Alkaline phosphatase [Enzymatic activity/volume] in Serum or Plasma 114 U/L 38 - 126 [facility] Aspartate aminotransferase [Enzymatic activity/volume] in Serum or Plasma 22 U/L 5 - 40 [facility] Alanine aminotransferase [Enzymatic activity/volume] in Seru m or Plasma 34 U/L 7 - 56 [facility] Anion gap 3 in Serum or Plasma 11.0 mmol/L 8.0 - 16.0 [facility] AGE 29 yrs [facility] al NON-AA GFR >60 mL/min [facility] AFR AMER GFR >60 mL/min [facility] Ho spital Male GFR In [...] >32 mL/min Normal ID Date Data Source [id number] 11/18/2019 07:34:00 PM EDT [facility] Name Value Range Interpretation Code Description Data Giovana rce(s) Supporting Document(s) CBC W/AUTOMATED DIFF [facility] COMPLETE BLOOD COUNT Leukocytes [#/volume] in Blood by Automated count 9.5 10^3/uL 4.2 - 1 1.0 [facility] Erythrocytes [#/volume] in Blood by Automated count 5.74 10^6/uL 4. 50 - 6.30 [facility] Hemoglobin [Mass/volume] in Blood 16.5 g/dL 14.0 - 16.0 H [facility] Hematocrit [Volume Fraction] of Blood by Automated count 50.2 % 4 1.0 - 51.0 [facility] Erythrocyte mean corpuscular volume [Entitic volume] by Auto mated count 87.5 fL 80.0 - 94.0 [facility] Erythrocyte mean corpuscular hemoglobin [Entitic mass] by Automated count 28.7 pg 27.0 - 34.0 [facility] Erythrocyte mean corpuscular hemoglobin concentration [Mass/volume] by Automated count 32.9 g/dL 31.0 - 36.0 [facility] Erythrocyte distribution width [Ratio] by Automated count 13.7 % 11.5 - 14.8 [facility] Platelets [#/volume] in Blood by Automated count 202 10^3/uL 150 - 45 0 [facility] Platelet mean volume [Entitic volume] in Blood by Automated count 9.2 fL 7.4 - 10.4 [facility] Neutrophils/100 leukocytes in Blood by Automated count 67.2 % 37. 0 - 80.0 [facility] Lymphocytes/100 leukocytes in Blood by Manual count 21.5 % 25.0 - 40.0 L [facility] Monocytes/100 leukocytes in Blood by Automated count 7.2 % 3.0 - 8.0 [facility] Eosinophils/100 leukocytes in Blood by Automated count 3.6 % 0.0 - 7.0 [facility] Basophils/100 leukocytes in Blood by Automated count 0.2 % 0.0 - 2.0 [facility] %IG 0.3 % 0.0 - 0.0 H [facility] al %NRBC 0.0 % 0.0 - 0.0 [facility] al Neutrophils [#/volume] in Blood by Automated count 6.39 10^3/uL 2.00 - 6.90 [facility] Lymphocytes [#/volume] in Blood by Automated count 2.04 10^3/uL 0.60 - 3.40 [facility] Monocytes [#/volume] in Blood by Automated count 0.68 10^3/uL 0.00 - 0.90 [facility] Eosinophils [#/volume] in Blood by Automated count 0.34 10^3/uL 0.00 - 0.70 [facility] Basophils [#/volume] in Blood by Automated count 0.02 10^3/uL 0.00 - 0.20 [facility] #IG 0.03 10^3/uL 0.00 - 0.10 [facility] H ospital #NRBC 0.00 10^3/uL 0.00 - 0.00 [facility] H ospital MANUAL DIFF NOT INDICATED [facility] RBC MORPH NOT INDICATED [facility] Ho spital ID Date Data Source [id number] 11/18/2019 03:08:00 PM EDT [facility] ([facility]) Name Value Range Interpretation Code Description Data Giovana rce(s) Supporting Document(s) Spine LS Complete <pending> [facility] ([facility]) Spine Thoracic <pending> [facility] ([facility]) ID Date Data Source [id number] 10/25/2019 08:46:00 AM EDT [facility] [address] [place] [address] PHONE: [phone] FAX: [phone] Name .................. : GAVIOTA Madison Acct Number.................. : [id number] ROOM. ................. : TR-02 MR Number ................... : [id number] Stay type ............. : E/R Discharge Date......... ... : 10/21/19 Admit Date ......... : 10/21/19 Admit Phys .................... : KHANH LANTIGUA Date of ....... : 1990 Family Phys ................... : NO PCP Phone .................. : [phone] Age ................................ : 29 Film# .................. .:[id number] Sex ................................. : M Unsigned transcriptions are preliminary reports and do not represent a medical or legal document CT ABD & PELV W/O ORAL W/O [place] [id number] COMPLETE:10/21/19 19:36 [facility] [address] Reason(s): gross hematuria x [address] [...] fat-containing inguinal hernias. Page 1 of 2 [facility] [address] [place] [address] PHONE: [phone] FAX: [phone] Name .................. : GAVIOTA ROMERO [place] Acct Number.................. : [id number] ROOM. ................. : TR-02 MR Number ................... : [id number] Stay type ............. : E/R Discharge Date......... ... : 10/21/19 Admit Date ......... : 10/21/19 Admit Phys .................... : KHANH LANTIGUA Date of ....... : 1990 Family Phys ................... : NO PCP Phone .................. : [phone] Age ................................ : 29 Film# .................. .:[id number] Sex ................................. : M Unsigned transcriptions are preliminary reports and do not represent a medical or legal document CT ABD & PELV W/O ORAL W/O IV [id number] COMPLETE:10/21/19 19:36 [facility] [address] Reason(s): gross hematuria x 3 weeks Evaluation [...] rce(s) Supporting Document(s) ID Date Data Source [id number] 10/21/2019 03:31:00 PM EDT [facility] 1 OrderSheet [facility] Emergency Department [address] [place] [address] Phone #: ext- [phone] 10/21/2019 15:22 Patient: NICK TRUJILLO Sex: M [...] 16:20 16:44 Morgan Crane; Kota Crane R.N. R.N.DIAGNOSTIC STUDY ORDERSOrder [...] rce(s) Supporting Document(s) ID Date Data Source [id number] 10/21/2019 03:31:00 PM EDT [place] [address] Medication Reconciliation Report [facility] Emergency Department [address] [place] [address] Phone #: ext- [phone] 10/21/2019 15:22 Patient: [...] Dispense 28capsule. Refills: 0. Substitution permitted.Pharmacy - [facility] [address] - [address] [place], [place] [id number]. . -- CLYDE Milton Name Value Range Interpretation Code Description Data Giovana rce(s) Supporting Document(s) ID Date Data Source [id number] 10/21/2019 03:31:00 PM EDT [facility] 1 Medication Administration Record [facility] Emergency Department [address] [place] [address] Phone #: ext [phone] 10/21/2019 15:22 Patient: NICK TRUJILLO Sex: M : 1990 Age: 29yWeight: 176.4 kgHeight/Length: 71 inBMI: 54.3ALLERGIES: Naproxsyn, Tylenol with codein, DilantinDate/Time Medication Administered Medication Ordered Name Value Range Interpretation Code Description Data Giovana rce(s) Supporting Document(s) ID Date Data Source [id number] 10/21/2019 03:31:00 PM EDT [facility] 1 General Instructions [facility] Emergency Department [address] [place] [address] Phone #: ext [phone] 10/21/2019 15:22 Patient: NICK TRUJILLO Sex: M [...] Dispense 28capsule. Refills: 0. Substitution permitted.Pharmacy - [facility] #[address] - [address] [facility] ; [place], [place] [id number]. .Follow-up:Follow up with your healthcare provider in [...] INFORMATIONBlood in the Urine 2 General Instructions [facility] Emergency Department [address] [place] [address] Phone #: ext- [phone] 10/21/2019 15:22 Patient: NICK TRUJILLO Sex: M [...] had blood in your 3 General Instructions [facility] Emergency Department [address] [place] [address] Phone #: ext- [phone] 10/21/2019 15:22 Patient: [...] the nose or gums or easy bruising [id number] [employer]. [address] [place] [address], [place] [address]. All rights reserved. This information is not [...] rce(s) Supporting Document(s) ID Date Data Source [id number] 10/21/2019 03:31:00 PM EDT [facility] 1 Clinical Report - Nurses [facility] Emergency Department [address] [place] [address] Phone #: ext- [phone] 10/21/2019 15:22 Patient: [...] before today?". 2 Clinical Report - Nurses [facility] Emergency Department [address] [place] [address] Phone #: ext- [phone] 10/21/2019 15:22 Patient: [...] Kota Crane R.N.NURSING PROGRESS NOTESPatient transported to [place] by wheelchair with dye penetrant testing technician. --16:41 10/21/19 Kota Crane R.N. 17:01 10/21/19. BP: 127/71. MAP: 89. HR: 104. RR: 18. O2 saturation: 99%. --17:02 10/21/19 [place] [address].DISPOSITION / DISCHARGE 17:38 10/21/19. BP: 125/78. MAP: 93. HR: 98. RR: 18. O2 saturation: 99%. Temp: 98.6 F. --17:38 10/21/19 [place] [address] Condition at departure: unchanged. Discharge instructions provided and reviewed with the patient. Reviewed medication(s). Prescription(s) sent electronically to pharmacy. Patient verbalized understanding. Written instructions provided in Tajik. The patient was discharged by the physician. He was discharged home. He left ambulatory. Patient driving. --17:41 10/21/19 Kota Crane R.N. 17:41 10/21/19. Pain level now 0/10. --17:41 10/21/19 Kota Crane R.N. 3 Clinical Report - Nurses [facility] Emergency Department [address] [place] [address] Phone #: ext- [phone] 10/21/2019 15:22 Patient: NICK TRUJILLO Sex: M : 1990 Age: 29yLocked/Released at 10/21/2019 17:42 by Kota Crane R.N. Name Value Range Interpretation Code Description Data Giovana rce(s) Supporting Document(s) ID Date Data Source [id number] 10/21/2019 03:31:00 PM EDT [facility] 1 Clinical Report - Physicians/Mid Levels [facility] Emergency Department [address] [place] [address] Phone #: ext- [phone] 10/21/2019 15:22 Patient: [...] allergies. 2 Clinical Report - Physicians/Mid Levels [facility] Emergency Department [address] [place] [address] Phone #: ext- [phone] 10/21/2019 15:22 [id number] Sex: M : 1990 Age: 29yPHYSICAL EXAMVital [...] results 3 Clinical Report - Physicians/Mid Levels [facility] Emergency Department [address] [place] [address] Phone #: ext- [phone] 10/21/2019 15:22 Patient: [...] treatment. 4 Clinical Report - Physicians/Mid Levels [facility] Emergency Department [address] [place] [address] Phone #: [phone]- [phone] 10/21/2019 15:22 Patient: NICK TRUJILLO Sex: M [...] capsule. Refills: 0. Substitution permitted. Pharmacy - [facility] #[address] [place], [place] [phone]. . Follow- up: Follow up with your [...] Name Value Range Interpretation Code Description Data [facility] rce(s) Supporting Document(s) ID Date Data Source [id number] 10/21/2019 04:27:00 PM EDT [facility] ([facility]) Name Value Range Interpretation Code Description Data [facility] rce(s) Supporting Document(s) Comprehensive [facility] Laboratory test result [facility] ([facility]) COMPREHENSIVE METABOLIC PANEL Chloride 106 meq/L 98-107 [facility] ([facility]) Potassium 4.0 meq/L 3.6-5.0 [facility] ([facility]) Sodium 144 meq/L 134-153 [facility] ([facility]) Co2 25 meq/L 22-30 [facility] ([facility]) BUN 10 mg/dL 7-21 [facility] ([facility]) Glucose 102 mg/dL 65-110 [facility] ([facility]) Creatinine 0.8 mg/dL 0.7-1.5 [facility] ([facility]) BUN/Creat 13 8-27 [facility] ([facility]) Total Protein 7.7 g/dL 6.3-8.2 [facility] ([facility]) Albumin 4.4 g/dL 3.9-5.0 [facility] ([facility]) Globulin 3.3 GM/DL 2.4-3.2 Above high normal [facility] ([facility]) Calcium 9.1 mg/dL 8.4-10.2 [facility] ([facility]) A/G Ratio 1.3 0.8-2.0 [facility] ([facility]) Total Bili Laboratory test result 0.2-1.3 [facility] ([facility]) Alkaline Phos 104 U/L 38-126 [facility] ([facility]) Sgot/Ast 27 U/L 5-40 [facility] ([facility]) Anion Gap 13.0 mmol/L 8.0-16.0 [facility] ([facility]) SGPT/Alt 43 U/L 7-56 [facility] ([facility]) Age 29 yrs [facility] ([facility]) Afr Amer GFR Laboratory test result [facility] ([facility]) Male GFR Interprentation 20-49 yrs >60 [...] Normal Non-Aa GFR Laboratory test result [facility] ([facility]) ID Date Data Source [id number] 10/21/2019 04:27:00 PM EDT [facility] ([facility]) Name Value Range Interpretation Code Description Data Giovana rce(s) Supporting Document(s) CBC W/Automated Diff Laboratory test result [facility] ([facility]) COMPLETE BLOOD COUNT WBC 9.1 10^3/uL 4.2-11.0 [facility] ([facility]) RBC 5.69 10^6/uL 4.50-6.30 [facility] ([facility]) Hemoglobin 16.3 g/dL 14.0-16.0 Above high normal [facility] ([facility]) Hematocrit 50.9 % 41.0-51.0 [facility] ([facility]) MCV 89.5 fL 80.0-94.0 [facility] ([facility]) MCH 28.6 pg 27.0-34.0 [facility] ([facility]) RDW 13.9 % 11.5-14.8 [facility] ([facility]) MCHC 32.0 g/dL 31.0-36.0 [facility] ([facility]) MPV 8.9 fL 7.4-10.4 [facility] ([facility]) Platelets 224 10^3/uL 150-450 [facility] ([facility]) Neut 72.7 % 37.0-80.0 [facility] ([facility]) Lymph 15.4 % 25.0-40.0 Below low normal [facility] ( [facility]) [place]ac 9.1 % 3.0-8.0 Above high normal [facility] ([facility]) Baso 0.2 % 0.0-2.0 [facility] ([facility]) Eos 2.4 % 0.0-7.0 [facility] ([facility]) %Ig 0.2 % 0.0-0.0 Above high normal [facility] ([facility]) %NRBC 0.0 % 0.0-0.0 [facility] ([facility]) #Neut 6.61 10^3/uL 2.00-6.90 [facility] ([facility]) #Arenac 0.83 10^3/uL 0.00-0.90 [facility] ([facility]) #Lymph 1.40 10^3/uL 0.60-3.40 [facility] ([facility]) #Eos 0.22 10^3/uL 0.00-0.70 [facility] ([facility]) #Baso 0.02 10^3/uL 0.00-0.20 [facility] ([facility]) #Ig 0.02 10^3/uL 0.00-0.10 [facility] ([facility]) #NRBC 0.00 10^3/uL 0.00-0.00 [facility] ([facility]) Manual Diff Laboratory test result [facility] ([facility]) RBC Morph Laboratory test result [facility] ([facility]) ID Date Data Source [id number] 10/21/2019 05:29:00 PM EDT [facility] Name Value Range Interpretation Code Description Data Giovana rce(s) Supporting Document(s) COMPREHENSIVE METABOLIC PANEL [facility] COMPREHENSIVE METABOLIC PANEL Sodium [Moles/volume] in Serum or Plasma 144 mEq/L 134 - 153 [facility] Potassium [Moles/volume] in Serum or Plasma 4.0 mEq/L 3.6 - 5.0 [facility] Chloride [Moles/volume] in Serum or Plasma 106 mEq/L 98 - 107 [facility] Carbon dioxide, total [Moles/volume] in Serum or Plasma 25 MEQ/L 22 - 30 [facility] Glucose [Mass/volume] in Serum or Plasma 102 MG/DL 65 - 110 [facility] BUN 10 MG/DL 7 - 21 [facility] Creatinine [Mass/volume] in Serum or Plasma 0.8 MG/DL 0.7 - 1.5 [facility] BUN/CREAT 13 8 - 27 [facility] Protein [Mass/volume] in Serum or Plasma 7.7 G/DL 6.3 - 8.2 [facility] Albumin [Mass/volume] in Serum or Plasma 4.4 G/DL 3.9 - 5.0 [facility] Globulin [Mass/volume] in Serum by calculation 3.3 GM/DL 2.4 - 3.2 H [facility] A/G RATIO 1.3 0.8 - 2.0 [facility] Calcium [Mass/volume] in Serum or Plasma 9.1 MG/DL 8.4 - 10.2 [facility] Bilirubin.total [Mass/volume] in Serum or Plasma <0.7 MG/DL 0.2 - 1.3 [facility] Alkaline phosphatase [Enzymatic activity/volume] in Serum or Plasma 104 U/L 38 - 126 [facility] Aspartate aminotransferase [Enzymatic activity/volume] in Serum or Plasma 27 U/L 5 - 40 [facility] Alanine aminotransferase [Enzymatic activity/volume] in Seru m or Plasma 43 U/L 7 - 56 [facility] Anion gap 3 in Serum or Plasma 13.0 mmol/L 8.0 - 16.0 [facility] AGE 29 yrs [facility] NON-AA GFR >60 mL/min [facility]osp ital AFR AMER GFR >60 mL/min [facility] Ho spital Male GFR In [...] >32 mL/min Normal ID Date Data Source [id number] 10/21/2019 04:43:00 PM EDT [facility] Name Value Range Interpretation Code Description Data Giovana rce(s) Supporting Document(s) CBC W/AUTOMATED DIFF [facility] COMPLETE BLOOD COUNT Leukocytes [#/volume] in Blood by Automated count 9.1 10^3/uL 4.2 - 1 1.0 [facility] Erythrocytes [#/volume] in Blood by Automated count 5.69 10^6/uL 4. 50 - 6.30 [facility] Hemoglobin [Mass/volume] in Blood 16.3 g/dL 14.0 - 16.0 H [facility] Hematocrit [Volume Fraction] of Blood by Automated count 50.9 % 4 1.0 - 51.0 [facility] Erythrocyte mean corpuscular volume [Entitic volume] by Auto mated count 89.5 fL 80.0 - 94.0 [facility] Erythrocyte mean corpuscular hemoglobin [Entitic mass] by Automated count 28.6 pg 27.0 - 34.0 [facility] Erythrocyte mean corpuscular hemoglobin concentration [Mass/volume] by Automated count 32.0 g/dL 31.0 - 36.0 [facility] Erythrocyte distribution width [Ratio] by Automated count 13.9 % 11.5 - 14.8 [facility] Platelets [#/volume] in Blood by Automated count 224 10^3/uL 150 - 45 0 [facility] Platelet mean volume [Entitic volume] in Blood by Automated count 8.9 fL 7.4 - 10.4 [facility] Neutrophils/100 leukocytes in Blood by Automated count 72.7 % 37. 0 - 80.0 [facility] Lymphocytes/100 leukocytes in Blood by Manual count 15.4 % 25.0 - 40.0 L [facility] Monocytes/100 leukocytes in Blood by Automated count 9.1 % 3.0 - 8.0 H [facility] Eosinophils/100 leukocytes in Blood by Automated count 2.4 % 0.0 - 7.0 [facility] Basophils/100 leukocytes in Blood by Automated count 0.2 % 0.0 - 2.0 [facility] %IG 0.2 % 0.0 - [facility].0 [facility] %[facility] 0.0 % 0.0 - 0.0 [facility] al Neutrophils [#/volume] in Blood by Automated count 6.61 10^3/uL 2.00 - 6.90 [facility] Lymphocytes [#/volume] in Blood by Automated count 1.40 10^3/uL 0.60 - 3.40 [facility] Monocytes [#/volume] in Blood by Automated count 0.83 10^3/uL 0.00 - 0.90 [facility] Eosinophils [#/volume] in Blood by Automated count 0.22 10^3/uL 0.00 - 0.70 [facility] Basophils [#/volume] in Blood by Automated count 0.02 10^3/uL 0.00 - 0.20 [facility] #IG 0.02 10^3/uL 0.00 - 0.10 [facility] H ospital #NRBC 0.00 10^3/uL 0.00 - 0.00 [facility] ospital MANUAL DIFF NOT INDICATED [facility] RBC MORPH NOT INDICATED [facility] spital ID Date Data Source [id number] 10/21/2019 03:35:00 PM EDT [facility] ([facility]) Name Value Range Interpretation Code Description Data Giovana rce(s) Supporting Document(s) Urinalysis Laboratory test result [facility] ([facility]) SOURCE: Clean Catch Source Laboratory test result [facility] ([facility]) SOURCE: Clean Catch Color Laboratory test result [facility] ([facility]) SOURCE: Clean Catch pH 5 5-9 [facility] ([facility]) SOURCE: Clean Catch Clarity Laboratory test result [facility] ([facility]) SOURCE: Clean Catch Spec [place] 1.010 1.001-1.030 [facility] ([facility]) SOURCE: Clean Catch Glucose Laboratory test result [facility] ([facility]) SOURCE: Clean Catch Bilirubin Laboratory test result [facility] ([facility]) SOURCE: Clean Catch Ketone Laboratory test result [facility] ([facility]) SOURCE: Clean Catch Protein Laboratory test result [facility] ([facility]) SOURCE: Clean Catch Blood 10 Abnormal (applies to non-numeric res ults) [facility] ([facility]) SOURCE: Clean Catch Nitrite Laboratory test result [facility] ([facility]) SOURCE: Clean Catch Urobilinogen Laboratory test result [facility] ([facility]) SOURCE: Clean Catch Leuk Est Laboratory test result [facility] ([facility]) SOURCE: Clean Catch RBC Laboratory test result [facility] ([facility]) SOURCE: Clean Catch Microscopic Laboratory test result M [facility] ([facility]) SOURCE: Clean Catch Epithelial Laboratory test result [facility] ([facility]) SOURCE: Clean Catch ID Date Data Source [id number] 10/21/2019 04:12:00 PM EDT [facility] Name Value Range Interpretation Code Description Data Giovana rce(s) Supporting Document(s) URINALYSIS [facility] Hospi giovanna URINALYSIS SOURCE Clean Catch [facility] ital COLOR yellow NORMAL: Yellow [facility] CLARITY clear NORMAL: Clear [facility] sp[facility] Specific gravity of Urine by Test strip 1.010 1.001 - 1.030 [facility] pH 5 5 - 9 [facility] Hospit al Glucose [Mass/volume] in Urine by Test strip NORM NORMAL: Negat [facility] Bilirubin.total [Presence] in Urine by Test strip NEG NORMAL: Negative [facility] Ketones [Presence] in Urine by Test strip NEG NORMAL: Negative [facility] Protein [Mass/volume] in Urine by Test strip NEG NORMAL: Negat [facility] Nitrite [Presence] in Urine by Test strip NEG NORMAL: Negative [facility] BLOOD 10 NORMAL: Negative A [facility] Leukocyte esterase [Presence] in Urine by Test strip NEG MILAGROS L: Negative [facility] Urobilinogen [Mass/volume] in Urine by Test strip NOR less vanessa n 1.0 mg/dL [facility] MICROSCOPIC [facility] Erythrocytes [#/volume] in Urine by Test strip 0 - 1 NORMAL: NON E SEEN [facility] EPITHELIAL FEW NORMAL: NONE SEEN [facility] Hospital ID Date Data Source [id number] 09/14/2019 03:51:00 PM [facility] Patient Name: NICK TRUJILLO : 1990 Sex: M Pt Unit #: [id number] Location:[facility] Provider: Visit Date/Time: 09/14/19 Primary Insurance: [employer]ile [...] arrange this because he is moving to [facility] this month and it may be hard to keep appointments. Here with forms for DSS to get some home health services. He seems to identify the problem with his right foot as the main reason for this. He has been seeing a surgeon in [place] for this and they are apparently recommending [...] of unspecified foot, initial encounter SNOMED Code(s): 022565823 Category: Medical Plan - Kota Anderson MD: Possibly soft tissue but worth doing an X ray to look at possible fractures. Continue conservative treatment. Encouraged him to consider taking Tylenol more often. (2) Low back pain at multiple sites: Status: Acute Code(s): M54.5 - Low back pain SNOMED Code(s): 885759309 Category: Medical Plan - Kota Anderson MD: [...] rce(s) Supporting Document(s) ID Date Data Source [id number] 08/12/2019 02:08:00 PM [facility] Patient Name: NICK TRUJILLO : 1990 Sex: M Pt Unit #: [id number] Location:[facility] Provider: Visit Date/Time: 08/12/19 Primary Insurance: Tsaile [...] states medicine Dr. Anderson prescribed is working Manager Application Required: No Is patient in pain?: Yes [...] offer been met?: Patient reports past refusal [facility] Medical History Acne (Chronic) Acne vulgaris [...] obesity due to excess calories SNOMED Code(s): 492161267 Category: Medical Electronically Signed By: <Electronically signed by Lance Arenas DO> Date/Time Signed: 08/12/19 1432 Name Value Range Interpretation Code Description Data Giovana rce(s) Supporting Document(s) Procedure Social History Code Duration Value Status Description Data Source(s ) Alcohol intake 06/28/2020 12:00:00 AM EST Current non-d roscoe of alcohol (finding) completed Current non-drinker of alcohol (finding) [facility] Tobacco use and exposure 06/28/2020 12:00:00 AM EST Never used co mpleted Never used [facility] Smoking 06/28/2020 12:00:00 AM EST Never smoker completed Never s [facility] Alcohol intake 06/06/2020 12:00:00 AM EST Current non-d roscoe of alcohol (finding) completed Current non-drinker of alcohol (finding) [facility] Alcohol intake 05/09/2020 12:00:00 AM EDT Current non-d roscoe of alcohol (finding) completed Current non-drinker of alcohol (finding) [facility] Alcohol intake 04/26/2020 12:00:00 AM EDT Current non-d roscoe of alcohol (finding) completed Current non-drinker of alcohol (finding) [facility] Alcohol intake 02/09/2020 12:00:00 AM EDT No completed [facility] Smoking 02/09/2020 12:00:00 AM EDT Never smoker completed Never [place] [facility] Alcohol intake 02/04/2020 12:00:00 AM EDT No completed [facility] Smoking 02/04/2020 12:00:00 AM EDT Never smoker completed Never s [facility] Caffeine Use Details 10/06/2019 12:00:00 AM EDT completed [facility] ([facility]) 10/06/2019 12:00:00 AM EDT Never smoked tobacco comple sheri Never smoked tobacco [facility] ([facility]) Smoking 10/06/2019 12:00:00 AM EDT Never smoker completed Never s moker [facility] ([facility]) 09/14/2019 03:51:40 PM EST Never smoker completed Never s [facility] Smoking 09/14/2019 03:51:00 PM EST Never smoker completed Never s [facility] 08/12/2019 02:22:00 PM EST Never smoker completed Never s [facility] 08/12/2019 02:22:00 PM EST No completed No [facility] 08/12/2019 02:22:00 PM EST No completed [facility] Vital Signs ID Date Data Source UNK Name Value Range Interpretation Code Description Data Source(s) Body height 71 [in_i] 71 [in_i] MADDISON ([facility]) 5'11" Diastolic blood pressure 60 mm[Hg] 60 mm[Hg] [employer] ([facility]) Systolic blood pressure 120 mm[Hg] 120 mm[Hg] M EDENT ([facility]) Body surface area Derived from formula 2.85 m2 2.85 m2 [facility] ([facility]) Body weight 184.615 kg 184.615 kg [facility] ([facility]) [place] body weight 172 [lb_av] 172 [lb_av] MEDEN T ([facility]) Body mass index (BMI) [Ratio] 56.8 kg/m2 56.8 k g/m2 [facility] ([facility]) Body weight 407.00 [lb_av] 407.00 [lb_av] MEDEN T ([facility]) Diastolic blood pressure 80 mm[Hg] 80 mm[Hg] eCW1 ([facility]) Systolic blood pressure 116 mm[Hg] 116 mm[Hg] e CW1 ([facility]) Body temperature 96.7 [degF] 96.7 [degF] eCW1 ( [facility]) Respiratory rate 18 /min 18 /min eCW1 ([facility]) Heart rate 112 /min 112 /min eCW1 ([facility]) Body mass index (BMI) [Ratio] 56.62 kg/m2 56.62 kg/m2 W1 ([facility]) Body height 71 [in_i] 71 [in_i] eCW1 ([facility]) Body weight 406 [lb_av] 406 [lb_av] eCW1 ([facility]) Body surface area Derived from formula 2.86 m2 2.86 m2 [facility] ([facility]) Body weight 185.579 kg 185.579 kg [facility] ([facility]) [place] body weight 172 [lb_av] 172 [lb_av] MEDEN T ([facility]) Body mass index (BMI) [Ratio] 57.1 kg/m2 57.1 k g/m2 [facility] ([facility]) Body weight 409.12 [lb_av] 409.12 [lb_av] [employer] ([facility]) Body height 71 [in_i] 71 [in_i] [facility] ([facility]) 5'11" Diastolic blood pressure 88 mm[Hg] 88 mm[Hg] [facility] ([facility]) Systolic blood pressure 154 mm[Hg] 154 mm[Hg] [facility] ([facility]) Body surface area Derived from formula 2.79 m2 2.79 m2 [facility] ([facility]) Body weight 184.162 kg 184.162 kg [facility] ([facility]) [place] body weight 160 [lb_av] 160 [lb_av] [employer] ([facility]) Body mass index (BMI) [Ratio] 59.9 kg/m2 59.9 k g/m2 [facility] ([facility]) Body weight 406.00 [lb_av] 406.00 [lb_av] [employer] ([facility]) Body height 69 [in_i] 69 [in_i] [facility] ([facility]) 5'9" Body temperature 96.8 [degF] 96.8 [degF] [facility] ([facility]) Oxygen saturation in Arterial blood by Pulse oximetry 99 % 99 % [facility] ([facility]) Heart rate 99 /min 99 /min [facility] ([facility]) Diastolic blood pressure 80 mm[Hg] 80 mm[Hg] [facility] ([facility]) Systolic blood pressure 122 mm[Hg] 122 mm[Hg] [facility] ([facility]) Diastolic blood pressure 86 mm[Hg] 86 mm[Hg] eCW1 ([facility]) Systolic blood pressure 132 mm[Hg] 132 mm[Hg] e CW1 ([facility]) Body temperature 97.1 [degF] 97.1 [degF] eCW1 ( [facility]) Respiratory rate 18 /min 18 /min eCW1 ([facility]) Heart rate 101 /min 101 /min eCW1 ([facility]) Body mass index (BMI) [Ratio] 57.32 kg/m2 57.32 kg/m2 eCW1 ([facility]) Body height 71 [in_i] 71 [in_i] eCW1 ([facility]) Body weight 411 [lb_av] 411 [lb_av] eCW1 ([facility]) Diastolic blood pressure 82 mm[Hg] 82 mm[Hg] eCW1 ([facility]) Systolic blood pressure 136 mm[Hg] 136 mm[Hg] e CW1 ([facility]) Body mass index (BMI) [Ratio] 59.41 kg/m2 59.41 kg/m2 W1 ([facility]) Body height 71 [in_i] 71 [in_i] eCW1 ([facility]) Body weight 426 [lb_av] 426 [lb_av] eCW1 ([facility]) Diastolic blood pressure 92 mm[Hg] 92 mm[Hg] eCW1 ([facility]) Systolic blood pressure 138 mm[Hg] 138 mm[Hg] e CW1 ([facility]) Body mass index (BMI) [Ratio] 57.46 kg/m2 57.46 kg/m2 W1 ([facility]) Body height 71 [in_i] 71 [in_i] eCW1 ([facility]) Body weight 412 [lb_av] 412 [lb_av] eCW1 ([facility]) Body weight 180.986 kg 180.986 kg [facility]ENT ([facility]) Body weight 399.00 [lb_av] 399.00 [lb_av] MEDEN T ([facility]) Oxygen saturation in Arterial blood by Pulse oximetry 98 % 98 % MEDENT ([facility]) Respiratory rate 18 /min 18 /min [facility] ( [facility]) Body temperature 97.6 [degF] 97.6 [degF] [facility] ([facility]) Heart rate 96 /min 96 /min [facility] ([facility]) Diastolic blood pressure 78 mm[Hg] 78 mm[Hg] [facility] ([facility]) Systolic blood pressure 132 mm[Hg] 132 mm[Hg] [facility] ([facility]) Diastolic blood pressure 61 mm[Hg] 61 mm[Hg] [facility] Systolic blood pressure 120 mm[Hg] 120 mm[Hg] [facility] Oxygen saturation in Arterial blood by Pulse oximetry 93 % 93 % [facility] Body temperature 36.5 Opal 36.5 Opal [facility] Respiratory rate 16 /min 16 /min [facility] Heart rate 88 /min 88 /min [facility] Body mass index (BMI) [Ratio] 55.37 kg/m2 55.37 kg/m2 [facility] Body weight 180.078 kg 180.078 kg [facility] Body height 180.3 cm 180.3 cm [facility] Oxygen saturation in Arterial blood by Pulse oximetry 95 % 95 % [facility] Body mass index (BMI) [Ratio] 55.50 kg/m2 55.50 kg/m2 [facility] Body weight 180.486 kg 180.486 kg [facility] Body height 180.3 cm 180.3 cm [facility] Heart rate 96 /min 96 /min [facility] Diastolic blood pressure 61 mm[Hg] 61 mm[Hg] [facility] Systolic blood pressure 112 mm[Hg] 112 mm[Hg] [facility] Body weight 180.533 kg 180.533 kg [...] Body height 71 [in_i] 71 [in_i] MEDENT ([facility]) 5'11" Body weight 180.533 kg 180.533 kg [facility] ([facility]) Body weight 398.00 [lb_av] 398.00 [lb_av] MEDEN T ([facility]) Oxygen saturation in Arterial blood by Pulse oximetry 97 % 97 % [facility] ([facility]) Respiratory rate 22 /min 22 /min [facility] ( [facility]) Body temperature 97.6 [degF] 97.6 [degF] [facility] ([facility]) Heart rate 86 /min 86 /min [facility] ([facility]) Diastolic blood pressure 72 mm[Hg] 72 mm[Hg] [facility] ([facility]) Systolic blood pressure 130 mm[Hg] 130 mm[Hg] M EDENT ([facility]) Body surface area 2.79 m2 2.79 m2 [facility] ([facility]) Body mass index (BMI) [Ratio] 54.1 kg/m2 54.1 k g/m2 [facility] ([facility]) Body height 71 [in_i] 71 [in_i] [facility] ([facility]) 5'11" Body weight 175.997 kg 175.997 kg [facility] ([facility]) per chart Body weight 388.00 [lb_av] 388.00 [lb_av] MEDEN T ([facility]) Body surface area 2.79 m2 2.79 m2 [employer] ([facility]) Body mass index (BMI) [Ratio] 54.1 kg/m2 54.1 k g/m2 [facility] ([facility]) Body height 71 [in_i] 71 [in_i] [facility] ([facility]) 5'11" Body weight 175.997 kg 175.997 kg [facility] ([facility]) Body weight 388.00 [lb_av] 388.00 [lb_av] MEDEN T ([facility]) Oxygen saturation in Arterial blood by Pulse oximetry 96 % 96 % [facility] ([facility]) Respiratory rate 24 /min 24 /min [facility] ( [facility]) wearing mask Body temperature 97.8 [degF] 97.8 [degF] [facility] ([facility]) Heart rate 76 /min 76 /min [facility] ([facility]) Diastolic blood pressure 58 mm[Hg] 58 mm[Hg] [facility] ([facility]) Systolic blood pressure 126 mm[Hg] 126 mm[Hg] [facility] ([facility]) Body surface area 2.78 m2 2.78 m2 [facility] ([facility]) Body mass index (BMI) [Ratio] 53.6 kg/m2 53.6 k g/m2 [facility] ([facility]) Body height 71 [in_i] 71 [in_i] [facility] ([facility]) 5'11" Body weight 174.296 kg 174.296 kg [facility] ([facility]) Body weight 384.25 [lb_av] 384.25 [lb_av] MEDEN T ([facility]) Oxygen saturation in Arterial blood by Pulse oximetry 98 % 98 % [facility] ([facility]) Respiratory rate 18 /min 18 /min [facility] ( [facility]) Body temperature 98.0 [degF] 98.0 [degF] [facility] ([facility]) Heart rate 94 /min 94 /min [facility] ([facility]) Diastolic blood pressure 64 mm[Hg] 64 mm[Hg] [facility] ([facility]) Systolic blood pressure 118 mm[Hg] 118 mm[Hg] [facility] ([facility]) Heart rate 92 /min 92 /min [facility] ([facility]) Diastolic blood pressure 88 mm[Hg] 88 mm[Hg] [facility] ([facility]) Systolic blood pressure 140 mm[Hg] 140 mm[Hg] N [facility] ([facility]) ID Date Data Source [id number] 06/09/2020 09:34:40 AM [facility] Name Value Range Interpretation Code Description Data Source(s) WEIGHT RECORDED 417.6 lb 417.6 lb [facility] Body height Measured 70.98 in 70.98 in [facility] ID Date Data Source [id number] 05/09/2020 02:17:55 PM EDT [facility] Name Value Range Interpretation Code Description Data Source(s) WEIGHT RECORDED 407 lb 407 lb [facility] Body height Measured 70.98 in 70.98 in [facility] ID Date Data Source [id number] 01/14/2020 09:34:45 AM EDT [facility] Name Value Range Interpretation Code Description Data Source(s) WEIGHT RECORDED 384.00 pounds 384.00 pounds Health system Height 71 Inches 071 Inches [facility] Patient Treatment Plan of Care Planned Activity Planned Date Details Description Data Source (s) Misc. Devices (DURABLE MEDICAL EQUIPMENT SEE SIG) XX M ISC 06/28/2020 12:00:00 AM [facility] ospital Clindamycin 0.01 MG/MG Topical Gel 06/12/2020 12:00:00 AM EST eCW1 ([facility]) Cephalexin 500 MG Oral Capsule 06/06/2020 01:30:00 PM [facility] lidocaine (XYLOCAINE) 2 % urojet 20 mL 06/06/2020 01:30:00 PM [facility] Doxycycline Monohydrate 50 MG Oral Capsule 05/15/2020 12:00:00 AM E DT eCW1 ([facility]) ciclopirox 10 MG/ML Medicated Shampoo 05/15/2020 12:00:00 AM EDT eCW1 ([facility]) alclometasone dipropionate 0.5 MG/ML Topical Cream 05/15/2020 12 :00:00 AM EDT eCW1 ([facility]) Doxycycline Monohydrate 50 MG Oral Capsule 05/15/2020 12:00:00 AM E DT eCW1 ([facility]) ciclopirox 10 MG/ML Medicated Shampoo 05/15/2020 12:00:00 AM EDT eCW1 ([facility]) alclometasone dipropionate 0.5 MG/ML Topical Cream 05/15/2020 12 :00:00 AM EDT eCW1 ([facility]) Doxycycline Monohydrate 50 MG Oral Capsule 05/15/2020 12:00:00 AM E DT eCW1 ([facility]) ciclopirox 10 MG/ML Medicated Shampoo 05/15/2020 12:00:00 AM EDT eCW1 ([facility]) alclometasone dipropionate 0.5 MG/ML Topical Cream 05/15/2020 12 :00:00 AM EDT eCW1 ([facility]) alclometasone dipropionate 0.5 MG/ML Topical Cream 05/15/2020 12 :00:00 AM EDT eCW1 ([facility]) Doxycycline Monohydrate 50 MG Oral Capsule 05/15/2020 12:00:00 AM E DT eCW1 ([facility]) ciclopirox 10 MG/ML Medicated Shampoo 05/15/2020 12:00:00 AM EDT eCW1 ([facility]) Docusate Sodium 100 MG Oral Capsule [DOK] 04/07/2020 12:00:00 AM ED T [facility] Desvenlafaxine Succinate ER 100 MG Oral Tablet Extended Release 24 Hour (PRISTIQ) 04/07/2020 12:00:00 AM EDT [facility] Nystatin 100 UNT/MG Topical Powder 03/27/2020 12:00:[address] [facility] Oxycodone Hydrochloride 5 MG Oral Tablet 02/09/2020 12:00:00 AM EDT [facility] Misc. Devices (DURABLE MEDICAL EQUIPMENT SEE SIG) [facility] 10/09/2018 [facility] MG Oral Capsule 03/03/2018 12:00:00 AM EDT [facility] maalox/lidocaine/diphenhydrAMINE (RADIATION MIXTURE) 1 :1:1 oral suspension 05/29/2017 12:00:00 AM EDT [facility] Melatonin 3 MG Oral Tablet [facility] doxycycline hyclate 50 MG Oral Capsule [facility] PARoxetine (PAXIL) 30 MG tablet [facility]
[2020-09-14] MEDS ORDERED: ONDANSETRON 4MG/2ML VIAL IV ONE (17:00)
[2020-09-14] MEDS ORDERED: GI COCKTAIL 50ML BTL(HYOSCYAMINE/MAALOX/LIDOCAINE VISCOUS)(1:3:1) PO ONE (17:00)
[2020-09-14] MEDS ORDERED: NS 1,000 ML IV ONE (17:00)
--- NOTE | 2020-09-14 17:49 | REP ---
INDICATION: epigastric and chest pain. COMPARISON: Comparison study September 02, 2020.. TECHNIQUE: Four view acute abdominal series including upright chest. FINDINGS: Upright chest radiograph is unremarkable. There is no evidence of infiltrate or free subdiaphragmatic air. Heart size is normal. Pulmonary vasculature is not increased. Pleural angles are sharp. Supine and erect views of the abdomen demonstrate a normal bowel gas pattern. The psoas margins and the flank stripes are intact. There is no evidence of mass, organomegaly, or pathologic calcification. IMPRESSION: Negative acute abdominal series. <Electronically signed by Rufino Nunez > 09/14/20 [id number]
[2020-09-14 18:08] LABS: BASO % 0.2 % (0.0-1.0); EOS # 0.4 10^3/uL (0.0-0.5); EOS % 3.3 % (0.0-3.0); HEMATOCRIT 51.2 % (42.0-52.0); HEMOGLOBIN 16.4 g/dl (13.5-17.5); LYMPH # 2.6 10^3/uL (1.5-5.0); LYMPH % 24.2 % (24.0-44.0); MEAN CORPUSCULAR HEMOGLOBIN 29.8 pg (27.0-33.0); MEAN CORPUSCULAR VOLUME 92.9 fl (80.0-96.0); MONO # 0.9 10^3/uL (0.0-0.8); NEUTROPHILS # 6.9 10^3/uL (1.5-8.5); NEUTROPHILS % 63.8 % (36.0-66.0); PLATELET COUNT, AUTOMATED 230 10^3/uL (150-450); RED BLOOD COUNT 5.51 10^6/uL (4.30-6.10); WHITE BLOOD COUNT 10.9 10^3/uL (4.0-10.0)
[2020-09-14 18:38] LABS: ALBUMIN 3.4 GM/DL (3.2-5.2); ALT/SGPT 55 U/L (12-78); BILIRUBIN,DIRECT < 0.1 MG/DL (0.0-0.2); BILIRUBIN,TOTAL 0.3 MG/DL (0.2-1.0); BLOOD UREA NITROGEN 10 MG/DL (7-18); CALCIUM LEVEL 8.8 MG/DL (8.5-10.1); CARBON DIOXIDE LEVEL 31 MEQ/L (21-32); CHLORIDE LEVEL 106 MEQ/L (98-107); CK-MB VALUE MASS < 1.0 NG/ML (<3.6); CPK CREATINE PHOSPHOKINASE 58 U/L (39-308); CREATININE FOR GFR 0.94 MG/DL (0.70-1.30); GLOMERULAR FILTRATION RATE > 60.0 (>60); GLUCOSE, FASTING 100 MG/DL (70-100); LIPASE 132 U/L (73-393); MB/CK RELATIVE INDEX 1.72 (< OR =4); POTASSIUM SERUM 4.2 MEQ/L (3.5-5.1); SODIUM LEVEL 142 MEQ/L (136-145); TOTAL PROTEIN 7.5 GM/DL (6.4-8.2); TROPONIN I < 0.02 NG/ML (< 0.10)
[2020-09-14] MEDS ORDERED: ISOVUE-370 76% 100ML VIAL As Ordered ONE (19:00)
--- NOTE | 2020-09-14 20:21 | REPVR ---
PROCEDURE INFORMATION: Exam: CT Angiography Chest With Contrast Exam date and time: 09/14/2020 7:09 PM Age: 30 years old Clinical indication: Chest pain; Additional info: Chest pain, elev d dimer, hurts to breathe deep TECHNIQUE: Imaging protocol: Computed tomographic angiography of the chest with contrast. Axial, coronal and sagittal reformatted images were created and reviewed. 3D rendering (Not supervised by radiologist): MIP and/or 3D reconstructed images were created by the technologist. Radiation optimization: All CT scans at this facility use at least one of these dose optimization techniques: automated exposure control; mA and/or kV adjustment per patient size (includes targeted exams where dose is matched to clinical indication); or iterative reconstruction. Contrast material: ISOVUE 370; Contrast volume: 100 ml; Contrast route: INTRAVENOUS (IV); COMPARISON: CT ANGIO CHEST 08/09/2020 6:01 PM FINDINGS: Pulmonary arteries: Contrast opacification satisfactory. No intraluminal filling defect. Aorta: Unremarkable. No aneurysm or dissection. Lungs: Mild central peribronchial thickening, suggestive of airway inflammation. No consolidation. Pleural spaces: Unremarkable. No pneumothorax. No pleural effusion. Heart: Unremarkable. No cardiomegaly. No pericardial effusion. Lymph nodes: No pathologically enlarged lymph nodes. Bones/joints: No acute osseous abnormality. Mild degenerative changes. Soft tissues: Unremarkable. IMPRESSION: 1. No CT evidence of pulmonary embolism. 2. Mild central peribronchial thickening, suggestive of airway inflammation. Electronically signed by: Jeff Parekh On 09/14/2020 20:21:27 PM
--- NOTE | 2020-09-14 20:24 | REPVR ---
PROCEDURE INFORMATION: Exam: CT Abdomen And Pelvis With Contrast Exam date and time: 09/14/2020 7:09 PM Age: 30 years old Clinical indication: Abdominal pain; Epigastric; Additional info: Epigastric pain, elev. Wbc, vomiting TECHNIQUE: Imaging protocol: Computed tomography of the abdomen and pelvis with contrast. Axial, coronal and sagittal reformatted images were created and reviewed. Radiation optimization: All CT scans at this facility use at least one of these dose optimization techniques: automated exposure control; mA and/or kV adjustment per patient size (includes targeted exams where dose is matched to clinical indication); or iterative reconstruction. Contrast material: ISOVUE 370; Contrast volume: 100 ml; Contrast route: INTRAVENOUS (IV); COMPARISON: CT ABD/PEL W/IV ORAL CONTRAS 08/30/2020 7:03 PM FINDINGS: Liver: Unremarkable. Gallbladder and bile ducts: Status post cholecystectomy. No biliary ductal dilatation. Pancreas: Unremarkable. Spleen: Unremarkable. Adrenal glands: Normal. No mass. Kidneys and ureters: Unchanged left renal cyst. No radiodense calculi. No hydronephrosis. Stomach and bowel: No bowel wall thickening. No obstruction. No pneumatosis. Appendix: Status post appendectomy. Intraperitoneal space: No free fluid. No organized fluid collection. No free air. Vasculature: Unremarkable. No aneurysm. Lymph nodes: No pathologically enlarged lymph nodes. Urinary bladder: Unremarkable as visualized. Reproductive: Unremarkable. Bones/joints: No acute osseous abnormality. Degenerative changes. Soft tissues: Fat containing paraumbilical and supraumbilical hernias. IMPRESSION: 1. No CT evidence of acute intra-abdominal or pelvic pathology. 2. Additional findings, as above. Electronically signed by: Jeff Parekh On 09/14/2020 20:24:38 PM
[2020-09-14 20:54] VITALS: BP 127/72
--- NOTE | 2020-09-15 08:18 | ECGEPIP ---
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
== END 2020-09-14 21:04 | disposition home or self-care (01) ==
LOC: M ED 15:09
DX: R10.13 Epigastric pain (principal); R07.89 Other chest pain; R94.31 Abnormal electrocardiogram [ECG] [EKG]; I10 Essential (primary) hypertension; J44.9 Chronic obstructive pulmonary disease, unspecified; K21.9 Gastro-esophageal reflux disease without esophagitis; Z79.899 Other long term (current) drug therapy; Z87.19 Personal history of other diseases of the digestive system; Z98.890 Other specified postprocedural states; Z90.89 Acquired absence of other organs; Z86.69 Personal history of other diseases of the nervous system and sense organs; Z86.59 Personal history of other mental and behavioral disorders
CPT/HCPCS: 36415; 71275; 74021; 74177; 80048; 80076; 82550; 82553; 83690; 85025; 85379; 93005; 96374; 99284; J2405; Q9967

== ENCOUNTER → 2020-09-28 | Outpatient (CLI) | payer OTHER ==
[~2020-09-28] MED LIST changes: +MIRT-62 PO
--- NOTE | 2020-09-28 10:27 | PFTRPT ---
Height: 71.00 Inches Weight: 384.00 Lbs BSA: 2.78 Diagnosis: R05 DATE: 09/28/2020 ORDERING PHYSICIAN: Esme Leon NP Pre and post bronchodilator studies have excellent technical quality. Forced vital capacity is reduced. FEV1 is out of proportion. Obstructive index is therefore reduced. Expiratory limit of the flow-volume loop with very significant flow rate limitation. No significant bronchodilator response is identified. Total lung capacity is normal. Residual volume does suggest air trapping. Diffusing capacity is normal and remains normal and correct for alveolar volume. Hemoglobin is acceptable at 14.6. Airway resistance is elevated with concomitant decreased airway conductance. IMPRESSION: Suspect significant underlying obstructive ventilatory impairment. No significant bronchodilator response. Please correlate clinically. MTDD
== END ==
LOC: M CARPUL 09:37
PROVIDERS: ATTEND Nurse Practitioner Family
DX: R05 Cough (principal)

== ENCOUNTER 2020-10-05 17:10 | Emergency (ER) | payer OTHER ==
[~2020-10-05] VITALS: Ht 180.3 cm; Wt 175.0 kg
[~2020-10-05 17:10] MED LIST changes: -CVS10CAP7 PO
[2020-10-05] MEDS ORDERED: CVS10CAP7 PO (17:35)
[2020-10-05] MEDS ORDERED: PANTOPRAZOLE 40MG VIAL (C9113 PER 1) IV ONE (17:50)
[2020-10-05] MEDS ORDERED: NS 1,000 ML IV ONE (17:50)
[2020-10-05] MEDS ORDERED: ONDANSETRON 4MG/2ML VIAL IV ONE (17:50)
[2020-10-05] MEDS ORDERED: KETOROLAC 30 MG/ML 1ML VIAL IV ONE (17:50)
[2020-10-05] MEDS ORDERED: ISOVUE-370 76% 100ML VIAL As Ordered ONE (17:59)
[2020-10-05 18:01] LABS: BASO % 0.3 % (0.0-1.0); EOS # 0.2 10^3/uL (0.0-0.5); HEMATOCRIT 48.8 % (42.0-52.0); HEMOGLOBIN 15.9 g/dl (13.5-17.5); LYMPH # 1.7 10^3/uL (1.5-5.0); LYMPH % 21.2 % (24.0-44.0); MEAN CORPUSCULAR HEMOGLOBIN 29.7 pg (27.0-33.0); MEAN CORPUSCULAR HGB CONC 32.6 g/dl (32.0-36.5); MONO # 0.6 10^3/uL (0.0-0.8); NEUTROPHILS # 5.2 10^3/uL (1.5-8.5); NEUTROPHILS % 67.2 % (36.0-66.0); PLATELET COUNT, AUTOMATED 217 10^3/uL (150-450); RED BLOOD COUNT 5.36 10^6/uL (4.30-6.10); WHITE BLOOD COUNT 7.8 10^3/uL (4.0-10.0)
[2020-10-05 18:36] LABS: ALBUMIN 3.8 GM/DL (3.2-5.2); ALT/SGPT 78 U/L (12-78); BILIRUBIN,DIRECT 0.1 MG/DL (0.0-0.2); BILIRUBIN,TOTAL 0.4 MG/DL (0.2-1.0); CK-MB VALUE MASS < 1.0 NG/ML (<3.6); CPK CREATINE PHOSPHOKINASE 70 U/L (39-308); LIPASE 113 U/L (73-393); MB/CK RELATIVE INDEX 1.43 (< OR =4); TOTAL PROTEIN 7.6 GM/DL (6.4-8.2); TROPONIN I < 0.02 NG/ML (< 0.10)
--- NOTE | 2020-10-05 19:22 | REPVR ---
PROCEDURE INFORMATION: Exam: CT Abdomen And Pelvis With Contrast Exam date and time: 10/05/2020 5:47 PM Age: 30 years old Clinical indication: Abdominal pain; Additional info: Mid abd pain TECHNIQUE: Imaging protocol: Computed tomography of the abdomen and pelvis with contrast. Radiation optimization: All CT scans at this facility use at least one of these dose optimization techniques: automated exposure control; mA and/or kV adjustment per patient size (includes targeted exams where dose is matched to clinical indication); or iterative reconstruction. Contrast material: ISOVUE 370; Contrast volume: 100 ml; Contrast route: INTRAVENOUS (IV); COMPARISON: 1. CT ABD/PEL W/IV CONTRAST ONLY 09/14/2020 7:10 PM 2. Abdomen, limited US 09/09/2020 5:21:[address] ABD/PEL W/IV ORAL CONTRAS 08/30/2020 7:03:51 PM FINDINGS: Lungs: Included lung bases are clear. Liver: Subtle small patchy hypodensities in the liver at or near the gallbladder bed are slightly better visualized than on prior studies from 09/14/2020 and 08/30/2020, too small to characterize. Gallbladder and bile ducts: There has been a cholecystectomy. No significant biliary ductal dilatation. Pancreas: Normal. No ductal dilation. Spleen: The spleen is enlarged, measuring 16.6 cm in length. Adrenal glands: Normal. No mass. Kidneys and ureters: 2.0 cm simple cyst in the left kidney is overall stable. No hydronephrosis. Stomach and bowel: No bowel dilatation to indicate obstruction. No pneumatosis. Appendix: Dense metallic clips presumably from prior appendectomy adjacent to the cecum. Intraperitoneal space: No free fluid or free air. Vasculature: Unremarkable. No abdominal aortic aneurysm. Lymph nodes: Unremarkable. No enlarged lymph nodes. Urinary bladder: There is diffuse bladder wall thickening, poorly evaluated given its relatively collapsed state. Reproductive: Unremarkable as visualized. Bones/joints: There is no acute osseous abnormality. Multiple Schmorl's nodes in the thoracolumbar spine with multilevel degenerative disc disease. Degenerative facet sclerosis in the lower lumbar spine. Soft tissues: There are fat containing periumbilical hernias without inflammatory change. There is mild inflammatory change at the umbilicus itself particularly superficially, which can be seen with on full light is. However, this is relatively similar to prior studies and may instead represent scarring. Bilateral noninflamed fat containing inguinal hernias. No bowel containing hernia. Other findings: . IMPRESSION: 1. Continued splenomegaly. 2. Simple cyst in the left kidney warranting no further follow-up. 3. Fat containing noninflamed periumbilical and bilateral inguinal hernias. No bowel containing hernia. 3. Fat stranding along the umbilicus which can be seen with on full itis, but appearance is somewhat similar to prior studies and this could alternatively represent nonspecific scarring. 4. Status post appendectomy and cholecystectomy. 5. Tiny hypodense lesions in the liver near the gallbladder bed in the setting of prior cholecystectomy. These are too small to characterize, slightly better visualized than on the prior studies. These are of questionable significance. COMMENT: Consistent with the [employer]'s Incidental Findings Committee Report (J Am Homer [employer]iol 2010): Unless the patient's specific circumstances suggest otherwise, any liver lesion 0.5 cm or less, any cystic kidney lesion less than 1.0 cm, and/or any adrenal lesion 1.0 cm or less not otherwise characterized in this report as possessing suspicious or indeterminate imaging features is/are highly likely to be benign and do not require follow-up imaging or biopsy. Electronically signed by: Keri Kwok On 10/05/2020 19:23:43 PM
[2020-10-05 20:23] VITALS: BP 122/73
--- NOTE | 2020-10-06 07:45 | ED PDOC ---
Post-Departure Follow-Up dr tuttle faxed formal report of ct sabd/p for fu. Trevon Nina MD Oct 06, 2020 07:45
== END 2020-10-05 20:34 | disposition home or self-care (01) ==
LOC: M ED 17:10 → EDBD 17:10 → M ED 20:34
DX: K43.9 Ventral hernia without obstruction or gangrene (principal); R07.9 Chest pain, unspecified; R16.1 Splenomegaly, not elsewhere classified; Z90.89 Acquired absence of other organs; K76.89 Other specified diseases of liver; N28.1 Cyst of kidney, acquired; R11.2 Nausea with vomiting, unspecified; R42 Dizziness and giddiness; I10 Essential (primary) hypertension; G43.909 Migraine, unspecified, not intractable, without status migrainosus; R56.9 Unspecified convulsions; G47.33 Obstructive sleep apnea (adult) (pediatric); J44.9 Chronic obstructive pulmonary disease, unspecified; F41.9 Anxiety disorder, unspecified; F33.9 Major depressive disorder, recurrent, unspecified; Z79.899 Other long term (current) drug therapy
CPT/HCPCS: 74177; 80047; 80076; 81001; 82550; 82553; 83690; 85025; 96361; 96374; 96375; 99284; C9113; J1885; J2405; Q9967

== ENCOUNTER → 2020-10-05 | Outpatient (CLI) | payer OTHER ==
[~2020-10-05] MED LIST changes: +CVS10CAP7 PO
== END ==
LOC: M LABSMTC 09:46
PROVIDERS: ATTEND Anesthesiology
DX: Z01.812 Encounter for preprocedural laboratory examination (principal); Z20.822 Contact with and (suspected) exposure to COVID-19

== ENCOUNTER 2020-10-06 01:29 | Emergency (ER) | payer OTHER ==
[~2020-10-06] VITALS: Ht 180.3 cm; Wt 174.6 kg
[~2020-10-06 01:29] MED LIST changes: +CVS10CAP7 PO
[2020-10-06] MEDS ORDERED: ONDANSETRON 4MG/2ML VIAL IV ONE (01:55)
[2020-10-06] MEDS ORDERED: GI COCKTAIL 50ML BTL(HYOSCYAMINE/MAALOX/LIDOCAINE VISCOUS)(1:3:1) PO ONE (01:55)
[2020-10-06] MEDS ORDERED: ONDANSETRON 4 MG ORAL DISINTEGRATING TAB PO ONE (02:15)
[2020-10-06 02:20] LABS: BASO % 0.3 % (0.0-1.0); EOS # 0.4 10^3/uL (0.0-0.5); EOS % 4.1 % (0.0-3.0); HEMATOCRIT 47.4 % (42.0-52.0); HEMOGLOBIN 15.5 g/dl (13.5-17.5); LYMPH # 2.6 10^3/uL (1.5-5.0); LYMPH % 28.5 % (24.0-44.0); MEAN CORPUSCULAR HEMOGLOBIN 29.8 pg (27.0-33.0); MEAN CORPUSCULAR HGB CONC 32.7 g/dl (32.0-36.5); MONO # 0.7 10^3/uL (0.0-0.8); MONO % 8.1 % (2.0-8.0); NEUTROPHILS # 5.3 10^3/uL (1.5-8.5); NEUTROPHILS % 58.8 % (36.0-66.0); PLATELET COUNT, AUTOMATED 261 10^3/uL (150-450); RED BLOOD COUNT 5.21 10^6/uL (4.30-6.10)
[2020-10-06 02:52] LABS: ALBUMIN 3.5 GM/DL (3.2-5.2); ALT/SGPT 73 U/L (12-78); BILIRUBIN,DIRECT 0.1 MG/DL (0.0-0.2); BILIRUBIN,TOTAL 0.3 MG/DL (0.2-1.0); BLOOD UREA NITROGEN 11 MG/DL (7-18); CALCIUM LEVEL 8.7 MG/DL (8.5-10.1); CARBON DIOXIDE LEVEL 23 MEQ/L (21-32); CHLORIDE LEVEL 114 MEQ/L (98-107); CREATININE FOR GFR 0.94 MG/DL (0.70-1.30); GLOMERULAR FILTRATION RATE > 60.0 (>60); GLUCOSE, FASTING 104 MG/DL (70-100); LIPASE 174 U/L (73-393); POTASSIUM SERUM 3.8 MEQ/L (3.5-5.1); SODIUM LEVEL 145 MEQ/L (136-145); TOTAL PROTEIN 7.3 GM/DL (6.4-8.2)
[2020-10-06 03:40] VITALS: BP 118/64
[2020-10-07] MEDS ORDERED: HYDR-3713 PO (14:10)
== END 2020-10-06 04:10 | disposition home or self-care (01) ==
LOC: M ED 01:29
DX: R10.13 Epigastric pain (principal); I10 Essential (primary) hypertension; G43.909 Migraine, unspecified, not intractable, without status migrainosus; R56.9 Unspecified convulsions; K21.9 Gastro-esophageal reflux disease without esophagitis; J44.9 Chronic obstructive pulmonary disease, unspecified; Z90.49 Acquired absence of other specified parts of digestive tract; F41.9 Anxiety disorder, unspecified; F33.9 Major depressive disorder, recurrent, unspecified; Z88.8 Allergy status to other drugs, medicaments and biological substances; Z88.6 Allergy status to analgesic agent; Z79.899 Other long term (current) drug therapy
CPT/HCPCS: 36415; 80048; 80076; 83690; 85025; 93041; 99284; Q0162

== ENCOUNTER 2020-10-07 12:29 | Emergency (ER) | payer OTHER ==
[~2020-10-07] VITALS: Ht 180.3 cm; Wt 175.0 kg
[2020-10-07] MEDS ORDERED: NORCO, ANEXSIA 5/325MG TABLET (HYDROcodone/ACETAMINOPHEN) PO ONE (12:50)
[2020-10-07 13:25] LABS: BASO % 0.1 % (0.0-1.0); EOS # 0.2 10^3/uL (0.0-0.5); HEMOGLOBIN 15.5 g/dl (13.5-17.5); LYMPH # 1.4 10^3/uL (1.5-5.0); MEAN CORPUSCULAR HEMOGLOBIN 29.4 pg (27.0-33.0); MEAN CORPUSCULAR HGB CONC 32.3 g/dl (32.0-36.5); MEAN CORPUSCULAR VOLUME 90.9 fl (80.0-96.0); MONO # 0.5 10^3/uL (0.0-0.8); MONO % 6.2 % (2.0-8.0); NEUTROPHILS # 5.5 10^3/uL (1.5-8.5); NEUTROPHILS % 72.4 % (36.0-66.0); PLATELET COUNT, AUTOMATED 194 10^3/uL (150-450); RED BLOOD COUNT 5.28 10^6/uL (4.30-6.10); WHITE BLOOD COUNT 7.6 10^3/uL (4.0-10.0)
[2020-10-07 13:57] LABS: ALBUMIN 3.5 GM/DL (3.2-5.2); ALT/SGPT 62 U/L (12-78); BILIRUBIN,TOTAL 0.4 MG/DL (0.2-1.0); BLOOD UREA NITROGEN 9 MG/DL (7-18); CALCIUM LEVEL 8.6 MG/DL (8.5-10.1); CARBON DIOXIDE LEVEL 25 MEQ/L (21-32); CHLORIDE LEVEL 113 MEQ/L (98-107); CREATININE FOR GFR 0.85 MG/DL (0.70-1.30); GLOMERULAR FILTRATION RATE > 60.0 (>60); GLUCOSE, FASTING 95 MG/DL (70-100); SODIUM LEVEL 144 MEQ/L (136-145); TOTAL PROTEIN 7.1 GM/DL (6.4-8.2)
--- NOTE | 2020-10-07 13:57 | REP ---
INDICATION: upper abdominal pain; hernia assessment COMPARISON: None. TECHNIQUE: Real time alberto scale ultrasound examination using curved array transducer. FINDINGS: A small non reducible fat containing midline supraumbilical fat containing ventral hernia is identified with a defect of approximately 38 mm. No associated fluid or significant acute inflammatory changes are appreciated. IMPRESSION: Small non reducible fat containing supraumbilical ventral hernia. <Electronically signed by Mahin Carbajal > 10/07/20 [id number]
[2020-10-07] MEDS ORDERED: HYDR-3713 PO (14:10)
[2020-10-07 14:15] VITALS: BP 113/55
== END 2020-10-07 14:30 | disposition home or self-care (01) ==
LOC: EDBD 12:29 → M ED 12:29
DX: K43.9 Ventral hernia without obstruction or gangrene (principal); R42 Dizziness and giddiness; I10 Essential (primary) hypertension; J44.9 Chronic obstructive pulmonary disease, unspecified; Z79.899 Other long term (current) drug therapy; Z88.6 Allergy status to analgesic agent

== ENCOUNTER 2020-10-12 21:11 | Emergency (ER) | payer OTHER ==
[~2020-10-12] VITALS: Ht 180.3 cm; Wt 174.6 kg
[~2020-10-12 21:11] MED LIST changes: +HYDR-3713 PO
[2020-10-12] MEDS ORDERED: ONDANSETRON 4MG/2ML VIAL IV ONE (21:40)
[2020-10-12] MEDS ORDERED: NS 1,000 ML IV ONE ×2 (21:40)
[2020-10-12] MEDS ORDERED: PANTOPRAZOLE 40MG VIAL (C9113 PER 1) IV ONE (21:40)
[2020-10-12 22:05] LABS: BASO % 0.2 % (0.0-1.0); EOS # 0.3 10^3/uL (0.0-0.5); EOS % 2.5 % (0.0-3.0); HEMATOCRIT 52.5 % (42.0-52.0); HEMOGLOBIN 17.1 g/dl (13.5-17.5); LYMPH # 2.3 10^3/uL (1.5-5.0); LYMPH % 21.9 % (24.0-44.0); MEAN CORPUSCULAR HEMOGLOBIN 29.1 pg (27.0-33.0); MEAN CORPUSCULAR HGB CONC 32.6 g/dl (32.0-36.5); MEAN CORPUSCULAR VOLUME 89.4 fl (80.0-96.0); MONO # 0.7 10^3/uL (0.0-0.8); NEUTROPHILS # 7.2 10^3/uL (1.5-8.5); NEUTROPHILS % 68.1 % (36.0-66.0); PLATELET COUNT, AUTOMATED 224 10^3/uL (150-450); RED BLOOD COUNT 5.87 10^6/uL (4.30-6.10); WHITE BLOOD COUNT 10.5 10^3/uL (4.0-10.0)
[2020-10-12] MEDS ORDERED: ISOVUE-370 76% 100ML VIAL As Ordered ONE (22:33)
[2020-10-12 22:52] LABS: ALBUMIN 3.9 GM/DL (3.2-5.2); ALT/SGPT 62 U/L (12-78); BILIRUBIN,DIRECT < 0.1 MG/DL (0.0-0.2); BILIRUBIN,TOTAL 0.4 MG/DL (0.2-1.0); CK-MB VALUE MASS 1.1 NG/ML (<3.6); CPK CREATINE PHOSPHOKINASE 131 U/L (39-308); LIPASE 149 U/L (73-393); MB/CK RELATIVE INDEX 0.84 (< OR =4); TOTAL PROTEIN 8.4 GM/DL (6.4-8.2); TROPONIN I < 0.02 NG/ML (< 0.10)
--- NOTE | 2020-10-12 23:15 | REPVR ---
PROCEDURE INFORMATION: Exam: CT Abdomen And Pelvis With Contrast Exam date and time: 10/12/2020 10:36 PM Age: 30 years old Clinical indication: Abdominal pain; Localized; Upper; Additional info: Upper abd pain, HX of abd wall hernia TECHNIQUE: Imaging protocol: Computed tomography of the abdomen and pelvis with contrast. Axial, coronal and sagittal reformatted images were created and reviewed. Radiation optimization: All CT scans at this facility use at least one of these dose optimization techniques: automated exposure control; mA and/or kV adjustment per patient size (includes targeted exams where dose is matched to clinical indication); or iterative reconstruction. Contrast material: ISOVUE 370; Contrast volume: 100 ml; Contrast route: INTRAVENOUS (IV); COMPARISON: CT ABD/PEL W/IV CONTRAST ONLY 10/05/2020 6:08 PM FINDINGS: Liver: Mild hepatomegaly. Gallbladder and bile ducts: Status post cholecystectomy. No biliary ductal dilatation. Pancreas: Unremarkable. Spleen: Mild splenomegaly. Adrenal glands: Normal. No mass. Kidneys and ureters: 2.2 x 2 cm simple left renal cyst. No radiodense calculi. No hydronephrosis. Stomach and bowel: Moderate amount of retained stool in the colon. No obstruction. No bowel wall thickening. No pneumatosis. Appendix: Normal. Intraperitoneal space: No free fluid. No organized fluid collection. No free air. Vasculature: Unremarkable. No aneurysm. Lymph nodes: No pathologically enlarged lymph nodes. Urinary bladder: Mild circumferential urinary bladder wall thickening, likely secondary to underdistention. Reproductive: Unremarkable. Bones/joints: No acute osseous abnormality. Mild degenerative changes. Soft tissues: Fat containing ventral abdominal wall hernias, similar to prior. Small, fat containing inguinal hernias. IMPRESSION: 1. No CT evidence of acute intra-abdominal or pelvic pathology. 2. Additional findings, as above. COMMENTS: Consistent with the [employer]'s Incidental Findings Committee white paper (J Am Homer Radiol 2018): Any incidental renal lesion less than 1 cm or classified as too small to characterize, or any incidental cystic renal lesion characterized as simple-appearing, is likely benign. No follow-up imaging is recommended for these lesions per consensus recommendations based on imaging criteria. Electronically signed by: Jeff Parekh On 10/12/2020 23:14:52 PM
[2020-10-12 23:50] VITALS: BP 132/69
[2020-10-12] MEDS ORDERED: ONDA4TAB6 PO (23:54)
--- NOTE | 2020-10-13 07:51 | ECGEPIP ---
[facility] - ED Test Date: 2020-10-12 Pat Name: NICK MEEK Department: Room: - Gender: Male Dedicated Regional Driver: DAMARIS : 1990 Requested By: NICK Dominguez Order Number: [id number] Reading MD: Cesar Gil Measurements Intervals [place] Rate: 84 P: 18 NV: 142 QRS: -15 QRSD: 94 T: -7 QT: 380 QTc: 449 Interpretive Statements Normal sinus rhythm Nonspecific ST-T wave abnormalities Baseline artifact Similar to tracing done 09-14-20 Electronically Signed on 10-13-2020 7:51:12 EDT by Cesar Gil
== END 2020-10-13 00:13 | disposition home or self-care (01) ==
LOC: M ED 21:11 → EDBD 21:11 → M ED 10-13 00:13
DX: R55 Syncope and collapse (principal); R10.9 Unspecified abdominal pain; R11.0 Nausea; N28.1 Cyst of kidney, acquired; R16.2 Hepatomegaly with splenomegaly, not elsewhere classified; E78.5 Hyperlipidemia, unspecified; G43.909 Migraine, unspecified, not intractable, without status migrainosus; J44.9 Chronic obstructive pulmonary disease, unspecified; K21.9 Gastro-esophageal reflux disease without esophagitis; R56.9 Unspecified convulsions; Z88.6 Allergy status to analgesic agent; Z88.8 Allergy status to other drugs, medicaments and biological substances; Z79.899 Other long term (current) drug therapy
CPT/HCPCS: 74177; 80047; 80076; 82550; 82553; 83690; 85025; 93005; 93041; 96361; 96374; 96375; 99285; C9113; J2405; Q9967

== ENCOUNTER → 2020-11-02 | Outpatient (CLI) | payer OTHER ==
[~2020-11-02] MED LIST changes: +SUCR1TAB56 PO; +VITA50005 PO
== END ==
LOC: M LABSMTC 09:58
PROVIDERS: ATTEND Anesthesiology
DX: Z20.828 Contact with and (suspected) exposure to other viral communicable diseases (principal); Z11.59 Encounter for screening for other viral diseases

== ENCOUNTER 2020-11-07 14:09 | Day surgery (SDC) | payer OTHER ==
[~2020-11-07] VITALS: Ht 180.3 cm; Wt 179.0 kg
[~2020-11-07 14:09] MED LIST changes: +LR 1,000 ML IV ONE
[2020-11-07] MEDS ORDERED: LIDOCAINE 2% 100MG/5ML SDV (FOR ANES.) As Ordered ONE (15:16)
[2020-11-07] MEDS ORDERED: dexameTHASONE 4 MG/ML 1ML VIAL (J1100 PER 1MG) As Ordered ONE (15:16)
[2020-11-07] MEDS ORDERED: fentaNYL 250 MCG/5 ML INJECTION (J3010) As Ordered ONE (15:16)
[2020-11-07] MEDS ORDERED: MIDAZOLAM INJ 2MG/2ML VIAL (J2250 PER 1MG) As Ordered ONE (15:16)
[2020-11-07] MEDS ORDERED: propofoL 200 MG/20 ML VIAL As Ordered ONE (15:16)
[2020-11-07] MEDS ORDERED: ONDANSETRON 4MG/2ML VIAL As Ordered ONE (15:16)
[2020-11-07] MEDS ORDERED: ROCURONIUM BROMIDE 50 MG/5 ML VIAL As Ordered ONE ×4 (15:16→20:40)
[2020-11-07] MEDS ORDERED: BUPIVACAINE HCL 0.25% 30ML VIAL As Ordered ONE (16:47)
[2020-11-07] MEDS ORDERED: ACETAMINOPHEN 1000MG 100ML IV BTL (OFIRMEV) (J0131 PER 10MG) As Ordered ONE (17:51)
[2020-11-07] MEDS ORDERED: SUGAMMADEX SODIUM 500 MG/5 ML VIAL (BRIDION) As Ordered ONE (18:11)
[2020-11-07] MEDS ORDERED: KETOROLAC 60MG 2ML VIAL As Ordered ONE (18:14)
[2020-11-07] MEDS ORDERED: GLYCOPYRROLATE INJ 0.2 MG/ML 2 ML VIAL As Ordered ONE (18:15)
[2020-11-07] MEDS ORDERED: fentaNYL 100 MCG/2 ML INJECTION (J3010) As Ordered ONE ×3 (18:56→22:21)
[2020-11-07] MEDS ORDERED: MONTELUKAST 10 MG TAB PO SCH (21:00)
[2020-11-07] MEDS ORDERED: ONDANSETRON 4MG/2ML VIAL IV PRN ×2 (22:00→22:40)
[2020-11-07] MEDS ORDERED: oxyCODONE 5MG TAB PO PRN (22:00)
[2020-11-07] MEDS ORDERED: LR 1,000 ML IV SCH ×2 (22:00→22:40)
[2020-11-07] MEDS: fentaNYL 100 MCG/2 ML INJECTION (J3010) IV PRN ×4 (22:22→22:55)
[2020-11-07] MEDS ORDERED: PERCOCET 5MG/325MG TAB PO PRN (22:40)
[2020-11-07] MEDS ORDERED: ACETAMINOPHEN TAB 650MG DOSE (2X325MG) PO PRN (22:40)
[2020-11-07] MEDS ORDERED: ALBUTEROL 90 MCG/ACT 8GM HFA INHALER INH PRN (22:40)
[2020-11-07] MEDS ORDERED: MORPHINE 4 MG/ML 1ML VIAL/SYRINGE (J2270) IV PRN (23:20)
[2020-11-07 23:25] VITALS: BP 135/81
[2020-11-07] MEDS: DOCUSATE SODIUM 100MG CAPSULE PO SCH (23:44)
[2020-11-07 23:55] VITALS: BP 130/89
[2020-11-08] MEDS: OMEPRAZOLE 20 MG CAP PO SCH ×2 (00:08→07:52)
[2020-11-08] MEDS: KETOROLAC 30 MG/ML 1ML VIAL IV SCH ×2 (00:08→05:58)
[2020-11-08] MEDS: levETIRAcetam 250MG TABLET (KEPPRA) PO SCH ×2 (00:08→07:52)
[2020-11-08] MEDS: TOPIRAMATE (TopAMAX) 100 MG TAB PO SCH ×2 (00:09→07:52)
[2020-11-08 00:55] VITALS: BP 133/81
[2020-11-08 01:55] VITALS: BP 124/76
[2020-11-08 02:55] VITALS: BP 127/84
[2020-11-08 06:00] VITALS: BP 132/83
[2020-11-08] MEDS: DOCUSATE SODIUM 100MG CAPSULE PO SCH (07:52)
--- NOTE | 2020-11-08 08:45 | RO ---
OPERATIVE NOTE DATE OF OPERATION: 11/07/2020 PREOPERATIVE DIAGNOSIS: Recurrent ventral incisional hernias. POSTOPERATIVE DIAGNOSIS: Recurrent ventral incisional hernias. PROCEDURE PERFORMED: Robotic-assisted laparoscopic repair of two recurrent ventral incisional hernias with mesh. The mesh utilized was Covidien Parietex; reference code [id number] and Lot No. [id number]. SURGEON: Simone García M.D. BOTTOM CAGER: None. ANESTHESIA: General. INDICATIONS FOR PROCEDURE: The patient is a 30-year-old young man who suffers from severe morbid obesity. He had undergone a laparoscopic cholecystectomy several years ago and apparently developed a small hernia above the umbilicus. He had undergone a robotic-assisted repair with mesh in [place] two years ago. The hernia recurred and he had this repaired again in January 2020. The hernia recurred again. He was subsequently seen in [place]. He had one palpable bulge just above the umbilicus, but a CT scan showed two fascial defects with one just above the umbilicus and one slightly below and marginally to the left of the midline. He is now for robotic-assisted repair of these ventral incisional recurrent hernias. DESCRIPTION OF PROCEDURE: The patient was brought to the operating room and placed on the table in a supine position. He was placed under general endotracheal anesthesia. The patient's abdomen was prepped and draped in a sterile fashion. A 0.25% Marcaine was infiltrated at each of the trocar sites as needed. The initial entry to the abdomen was in the left upper quadrant slightly below the costal margin. A Veress needle was inserted and after a positive hanging drop test, the abdomen was inflated with carbon dioxide gas. Because of his morbid obesity, the inflation pressures were somewhat elevated. An 8-mm port was then placed over a 5-mm scope and advanced through the abdominal wall without difficulty. The endoscope was inserted while insufflation continued. There was no sign of Veress needle injury. Multiple adhesions were identified to the anterior abdominal wall along the midline. A second 8-mm port was placed approximately 12-15 cm further inferiorly in the abdomen and more lateral. A third port was placed in the left lower quadrant. The 8-mm port in the left upper quadrant was subsequently converted to a 12-mm port. The patient was tilted to a slight Trendelenburg position to level the abdomen. The da Alice patient cart of the Xi robot was brought into position. The endoscope arm was docked to the middle port and targeting took place on the adhesions along the midline. The other arms were then docked and a fenestrated bipolar and cauterizing scissors were inserted. I then moved to the control console to proceed. Initial inspection showed two definite partially seen fascial defects along the midline. There were fairly extensive adhesions of the omentum to the anterior abdominal wall along the midline particularly obscuring the defects. There was also omentum adherent into the smaller defect, which was more inferior. The omentum was reduced from within this hernia with some adhesions lysed using the cautery. The omentum was then freed from the anterior abdominal wall all along the midline; again, using a combination of blunt and cautery dissection. The two fascial defects were by a bridge of tissue approximately 3-4 cm in width. The inferior fascial defect was 1.5 x 2.0 cm. The larger defect that was higher was 3 x 3.5 cm. There was some old blue suture material noted at the orifice of the inferior defect. There were two pieces of old mesh incorporated into the anterior abdominal wall. One of these was slightly smaller and inferior, but was incompletely seen. The larger piece of mesh was slightly higher and had a rolled edge, which lay along the right edge of the larger fascial defect. To the right of the midline, the mesh seemed to be nicely incorporated into the anterior abdominal wall, but it did not extend to the left and covered the midline any longer. There was some scarring on the anterior abdominal wall on both sides of the midline. There was some undisturbed preperitoneal fat and peritoneum above and below the fascial defects, but in the mid area of the abdominal wall surrounding both fascial defects and between them, there was really no tissue to be elevated. I therefore performed elevation of preperitoneal flaps superiorly and inferiorly. A ruler was inserted to estimate the size for mesh for repair of his defects. To begin the closure, I placed a suture of 1-0 V-[address] a purse string suture in the hernia sac and surrounding fibrous tissue at the larger fascial defect. This was placed just outside or just anterior to the abdominal wall fascia to perhaps take some tension off the fascia in this area. The fascia was then closed transversely with a running suture of #1 STRATAFIX. This suture was then continued inferiorly down the abdominal wall to close the smaller fascial defect also transversely. A 15 x 20 cm Parietex patch as identified previously was then selected. This was trimmed to a 15 x 15 cm patch. This was rolled and inserted into the abdomen through the 12-mm port. This was then placed over the anterior abdominal wall centered on the midline with excellent overlap on all sides. This was sutured at the mid point of the mesh and the suturing continued across the transverse midline and then began a suturing of the circumference of the mesh to the anterior abdominal wall. Additional sutures were used to place a row of sutures down the longitudinal midline of the mesh and to complete the suturing of the periphery of the mesh. A second ring of sutures was then placed as a concentric suture about 2-3 cm in from the periphery on all sides of the mesh. This gave an excellent application of the mesh to the anterior abdominal wall. The two flaps of preperitoneal flap were then closed at the top and bottom of the mesh. The inferior flap covered just the edge of the mesh in this area, while the superior flap covered a slightly larger area at the top end of the mesh. Final inspection revealed excellent placement of the mesh with no evidence of any bleeding. All needles were removed and accounted for. A 2-0 Vicryl suture was placed into the inner fascia of the 12-mm port as this was removed. The abdomen was then deflated and the remaining instruments and ports were removed. The suture placed in the 12-mm site was tied down and the skin incisions were then closed with 4-0 Vicryl and Steri-Strip. Light dressings were applied. The patient tolerated the procedure well without apparent complication. He was awakened in the operating room, extubated, and moved to the recovery room in stable condition.
[2020-11-08] MEDS ORDERED: MIRTAZAPINE 15 MG TAB PO SCH (09:00)
[2020-11-08 10:00] VITALS: BP 107/65
[2020-11-08 14:00] VITALS: BP 126/76
[2020-11-08] MEDS ORDERED: IBUP-1022 PO (14:36)
[2020-11-08] MEDS ORDERED: HYDR-3713 PO (14:36)
== END 2020-11-08 15:24 | disposition home or self-care (01) ==
LOC: M SDC 14:09 → M MSPAV 23:24 → M SDC 11-08 15:24
PROVIDERS: ATTEND Surgery
DX: K43.2 Incisional hernia without obstruction or gangrene (principal); E66.01 Morbid (severe) obesity due to excess calories; I10 Essential (primary) hypertension; J44.9 Chronic obstructive pulmonary disease, unspecified; G40.909 Epilepsy, unspecified, not intractable, without status epilepticus; G43.909 Migraine, unspecified, not intractable, without status migrainosus; K21.9 Gastro-esophageal reflux disease without esophagitis; Z79.51 Long term (current) use of inhaled steroids; Z79.899 Other long term (current) drug therapy; Z88.5 Allergy status to narcotic agent; Z88.8 Allergy status to other drugs, medicaments and biological substances
CPT/HCPCS: 49656; 96374; 96376; C1781; J0131; J1100; J1885; J2250; J2405; J3010; S2900

== ENCOUNTER → 2020-12-12 | Outpatient (REF) | payer OTHER ==
[~2020-12-12] MED LIST changes: -LR 1,000 ML IV ONE
[2020-12-12 18:20] LABS: BASO % 0.3 % (0.0-1.0); EOS # 0.2 10^3/uL (0.0-0.5); EOS % 1.4 % (0.0-3.0); HEMATOCRIT 53.3 % (42.0-52.0); HEMOGLOBIN 16.9 g/dl (13.5-17.5); LYMPH # 1.8 10^3/uL (1.5-5.0); LYMPH % 13.3 % (24.0-44.0); MEAN CORPUSCULAR HEMOGLOBIN 28.7 pg (27.0-33.0); MEAN CORPUSCULAR HGB CONC 31.7 g/dl (32.0-36.5); MEAN CORPUSCULAR VOLUME 90.5 fl (80.0-96.0); MONO # 0.9 10^3/uL (0.0-0.8); MONO % 6.6 % (2.0-8.0); NEUTROPHILS # 10.5 10^3/uL (1.5-8.5); PLATELET COUNT, AUTOMATED 255 10^3/uL (150-450); RED BLOOD COUNT 5.89 10^6/uL (4.30-6.10); WHITE BLOOD COUNT 13.4 10^3/uL (4.0-10.0)
== END ==
LOC: M LAB REF 17:03
PROVIDERS: ATTEND Nurse Practitioner Family
DX: R06.00 Dyspnea, unspecified (principal)

== ENCOUNTER 2021-01-12 15:09 | Emergency (ER) | payer OTHER ==
[~2021-01-12] VITALS: Ht 180.3 cm; Wt 173.2 kg
[~2021-01-12 15:09] MED LIST changes: +ERGO500029 PO; +OMEP40CA4 PO; -OMEP40CA97 PO; -VITA50005 PO
--- NOTE | 2021-01-12 17:10 | REP ---
INDICATION: pain after fall down stairs COMPARISON: None TECHNIQUE: Four views each knee FINDINGS: There is no acute fracture or destructive osseous lesions seen involving either knee. IMPRESSION: No acute fracture <Electronically signed by Benjamin Garcia > 01/12/21 [id number]
[2021-01-12] MEDS ORDERED: PRED20TA PO (17:18)
[2021-01-12 17:41] VITALS: BP 156/82
== END 2021-01-12 17:43 | disposition home or self-care (01) ==
LOC: M ED 15:09
DX: M25.561 Pain in right knee (principal); M25.562 Pain in left knee; Z79.51 Long term (current) use of inhaled steroids; Z79.899 Other long term (current) drug therapy; Z88.6 Allergy status to analgesic agent; Z88.8 Allergy status to other drugs, medicaments and biological substances

== ENCOUNTER 2021-01-16 12:29 | Emergency (ER) | payer OTHER ==
[~2021-01-16] VITALS: Ht 180.3 cm; Wt 174.3 kg
[~2021-01-16 12:29] MED LIST changes: +PRED20TA PO
[2021-01-16 12:30] VITALS: BP 132/75
[2021-01-16 14:06] LABS: BASO % 0.3 % (0.0-1.0); EOS # 0.2 10^3/uL (0.0-0.5); EOS % 1.9 % (0.0-3.0); HEMATOCRIT 51.2 % (42.0-52.0); LYMPH # 1.9 10^3/uL (1.5-5.0); LYMPH % 18.7 % (24.0-44.0); MEAN CORPUSCULAR HEMOGLOBIN 28.3 pg (27.0-33.0); MEAN CORPUSCULAR HGB CONC 31.3 g/dl (32.0-36.5); MEAN CORPUSCULAR VOLUME 90.6 fl (80.0-96.0); MONO # 0.7 10^3/uL (0.0-0.8); MONO % 6.8 % (2.0-8.0); NEUTROPHILS # 7.2 10^3/uL (1.5-8.5); NEUTROPHILS % 72.1 % (36.0-66.0); PLATELET COUNT, AUTOMATED 264 10^3/uL (150-450); RED BLOOD COUNT 5.65 10^6/uL (4.30-6.10)
[2021-01-16 14:29] LABS: ALBUMIN 3.9 GM/DL (3.2-5.2); ALT/SGPT 53 U/L (12-78); BILIRUBIN,DIRECT 0.2 MG/DL (0.0-0.2); BILIRUBIN,TOTAL 0.5 MG/DL (0.2-1.0); BLOOD UREA NITROGEN 10 MG/DL (7-18); CALCIUM LEVEL 9.1 MG/DL (8.5-10.1); CARBON DIOXIDE LEVEL 31 MEQ/L (21-32); CHLORIDE LEVEL 104 MEQ/L (98-107); CREATININE FOR GFR 0.95 MG/DL (0.70-1.30); GLOMERULAR FILTRATION RATE > 60.0 (>60); GLUCOSE, FASTING 100 MG/DL (70-100); LIPASE 110 U/L (73-393); POTASSIUM SERUM 3.8 MEQ/L (3.5-5.1); SODIUM LEVEL 139 MEQ/L (136-145); TOTAL PROTEIN 7.9 GM/DL (6.4-8.2)
[2021-01-16] MEDS ORDERED: ISOVUE-370 76% 100ML VIAL As Ordered ONE (15:44)
--- NOTE | 2021-01-16 17:24 | REP ---
INDICATION: abdominal pain COMPARISON: 10/12/2020. TECHNIQUE: CT Scan of the abdomen and pelvis was performed with intravenous administration of 100 cc of Isovue 370, without oral contrast. Sagittal and coronal reconstruction images are performed. FINDINGS: Lung bases: Unremarkable. Liver: Normal Gallbladder: Prior cholecystectomy. Spleen: Normal. Adrenals: Normal. Pancreas: Normal. Kidneys: There is a cyst of the lower pole the left kidney again noted 2.3 cm in diameter. Small and large bowel: Unremarkable. There is no free air or obstruction. Free fluid: None. Abdominal aorta: No aneurysm or dissection. Adenopathy: None. Appendix: Prior appendectomy. Osseous structures: There are degenerative changes of the spine without compression deformity. Pelvis: No mass. Small bilateral inguinal hernias contain noninflamed fat. IMPRESSION: No acute abnormalities identified. <Electronically signed by Matti Sullivan > 01/16/21 [id number]
[2021-01-16] MEDS ORDERED: PANTOPRAZOLE 40MG VIAL (C9113 PER 1) IV ONE (18:10)
[2021-01-16] MEDS ORDERED: ACETAMINOPHEN 325 MG TAB PO ONE (18:10)
== END 2021-01-16 19:24 | disposition home or self-care (01) ==
LOC: M ED 12:29
DX: R10.9 Unspecified abdominal pain (principal); M25.569 Pain in unspecified knee; K21.9 Gastro-esophageal reflux disease without esophagitis; J45.909 Unspecified asthma, uncomplicated; I10 Essential (primary) hypertension; Z88.6 Allergy status to analgesic agent; Z88.8 Allergy status to other drugs, medicaments and biological substances
CPT/HCPCS: 74177; 80048; 80076; 81001; 83605; 83690; 85025; 96374; 99283; C9113; Q9967

== ENCOUNTER 2021-04-21 14:04 | Emergency (ER) | payer OTHER ==
[~2021-04-21] VITALS: Ht 180.3 cm; Wt 172.3 kg
[2021-04-21 14:05] VITALS: BP 153/89
[2021-04-21] MEDS ORDERED: NS 1,000 ML IV ONE (16:35)
[2021-04-21] MEDS ORDERED: ONDANSETRON 4MG/2ML VIAL IV ONE (16:35)
[2021-04-21] MEDS ORDERED: MORPHINE 4 MG/ML 1ML VIAL/SYRINGE (J2270) IV ONE (16:35)
[2021-04-21 17:55] LABS: BASO % 0.2 % (0.0-1.0); EOS # 0.3 10^3/uL (0.0-0.5); EOS % 2.2 % (0.0-3.0); HEMATOCRIT 51.4 % (42.0-52.0); HEMOGLOBIN 16.4 g/dl (13.5-17.5); LYMPH # 1.8 10^3/uL (1.5-5.0); LYMPH % 14.1 % (24.0-44.0); MEAN CORPUSCULAR HEMOGLOBIN 27.9 pg (27.0-33.0); MEAN CORPUSCULAR HGB CONC 31.9 g/dl (32.0-36.5); MEAN CORPUSCULAR VOLUME 87.4 fl (80.0-96.0); MONO # 0.8 10^3/uL (0.0-0.8); NEUTROPHILS # 9.8 10^3/uL (1.5-8.5); NEUTROPHILS % 77.2 % (36.0-66.0); PLATELET COUNT, AUTOMATED 263 10^3/uL (150-450); RED BLOOD COUNT 5.88 10^6/uL (4.30-6.10); WHITE BLOOD COUNT 12.7 10^3/uL (4.0-10.0)
[2021-04-21] MEDS ORDERED: ISOVUE-370 76% 100ML VIAL As Ordered ONE (18:36)
[2021-04-21 18:45] LABS: ALBUMIN 3.1 GM/DL (3.2-5.2); ALT/SGPT 47 U/L (12-78); BILIRUBIN,DIRECT < 0.1 MG/DL (0.0-0.2); BILIRUBIN,TOTAL 0.3 MG/DL (0.2-1.0); LIPASE 83 U/L (73-393); TOTAL PROTEIN 8.4 GM/DL (6.4-8.2)
--- NOTE | 2021-04-21 20:11 | REPVR ---
PROCEDURE INFORMATION: Exam: CT Abdomen And Pelvis With Contrast Exam date and time: 04/21/2021 6:39 PM Age: 30 years old Clinical indication: Abdominal pain; Additional info: Vomiting, upper abd pain TECHNIQUE: Imaging protocol: Computed tomography of the abdomen and pelvis with contrast. Axial, coronal and sagittal reformatted images were created and reviewed. Radiation optimization: All CT scans at this facility use at least one of these dose optimization techniques: automated exposure control; mA and/or kV adjustment per patient size (includes targeted exams where dose is matched to clinical indication); or iterative reconstruction. Contrast material: ISOVUE 370; Contrast volume: 100 ml; Contrast route: INTRAVENOUS (IV); COMPARISON: CT ABD/PEL W/IV CONTRAST ONLY 01/16/2021 4:48 PM FINDINGS: Mediastinal space: Small hiatal hernia. Liver: Mild hepatomegaly. Gallbladder and bile ducts: Status post cholecystectomy. No biliary ductal dilatation. Pancreas: Unremarkable. Spleen: Mild splenomegaly. Adrenal glands: Normal. No mass. Kidneys and ureters: 2.8 x 2 cm simple left renal cyst (no follow-up is indicated based on the imaging appearance). No radiodense calculi. No hydronephrosis. Stomach and bowel: No bowel wall thickening. No obstruction. No pneumatosis. Appendix: Status post appendectomy. Intraperitoneal space: No free fluid. No organized fluid collection. No free air. Vasculature: Unremarkable. No aneurysm. Lymph nodes: No pathologically enlarged lymph nodes. Urinary bladder: Unremarkable as visualized. Reproductive: Unremarkable. Bones/joints: No acute osseous abnormality. Osteopenia. Degenerative changes. Soft tissues: Small, fat containing inguinal hernias. IMPRESSION: 1. No CT evidence of acute intra-abdominal or pelvic pathology. 2. Additional findings, as above. Electronically signed by: Jeff Parekh On 04/21/2021 20:10:46 PM
[2021-04-21] MEDS ORDERED: ONDA4TAB6 PO ×2 (20:21→20:40)
[2021-04-21] MEDS ORDERED: ACETAMINOPHEN 500 MG TAB PO ONE (20:25)
== END 2021-04-21 21:09 | disposition home or self-care (01) ==
LOC: M ED 14:04
DX: R10.84 Generalized abdominal pain (principal); R11.2 Nausea with vomiting, unspecified; R06.02 Shortness of breath; R05 Cough; R51.9 Headache, unspecified; R16.2 Hepatomegaly with splenomegaly, not elsewhere classified; M85.80 Other specified disorders of bone density and structure, unspecified site; K44.9 Diaphragmatic hernia without obstruction or gangrene; R56.9 Unspecified convulsions; J44.9 Chronic obstructive pulmonary disease, unspecified; Z88.6 Allergy status to analgesic agent; Z88.8 Allergy status to other drugs, medicaments and biological substances; Z79.899 Other long term (current) drug therapy
CPT/HCPCS: 74177; 80047; 80076; 83690; 85025; 87798; 96361; 96374; 99284; J2405; Q9967

== ENCOUNTER 2021-04-27 17:30 | Emergency (ER) | payer OTHER ==
[~2021-04-27] VITALS: Ht 180.3 cm; Wt 169.4 kg
[2021-04-27 17:32] VITALS: BP 136/81
[2021-04-27] MEDS ORDERED: KETOROLAC 30 MG/ML 1ML VIAL IV ONE (19:55)
[2021-04-27] MEDS ORDERED: ONDANSETRON 4MG/2ML VIAL IV ONE (19:55)
[2021-04-27] MEDS ORDERED: PANTOPRAZOLE 40MG VIAL (C9113 PER 1) IV ONE (19:55)
[2021-04-27] MEDS ORDERED: NS 1,000 ML IV ONE (19:55)
[2021-04-27 21:14] LABS: BASO % 0.2 % (0.0-1.0); EOS # 0.3 10^3/uL (0.0-0.5); HEMOGLOBIN 16.1 g/dl (13.5-17.5); LYMPH # 1.9 10^3/uL (1.5-5.0); LYMPH % 14.2 % (24.0-44.0); MEAN CORPUSCULAR HEMOGLOBIN 27.6 pg (27.0-33.0); MEAN CORPUSCULAR HGB CONC 31.6 g/dl (32.0-36.5); MEAN CORPUSCULAR VOLUME 87.5 fl (80.0-96.0); MONO # 0.7 10^3/uL (0.0-0.8); MONO % 5.4 % (2.0-8.0); NEUTROPHILS # 10.3 10^3/uL (1.5-8.5); NEUTROPHILS % 77.7 % (36.0-66.0); PLATELET COUNT, AUTOMATED 273 10^3/uL (150-450); RED BLOOD COUNT 5.83 10^6/uL (4.30-6.10); WHITE BLOOD COUNT 13.3 10^3/uL (4.0-10.0)
[2021-04-27 21:29] LABS: ALBUMIN 3.4 GM/DL (3.2-5.2); ALT/SGPT 54 U/L (12-78); BILIRUBIN,DIRECT 0.1 MG/DL (0.0-0.2); BILIRUBIN,TOTAL 0.3 MG/DL (0.2-1.0); LIPASE 122 U/L (73-393); TOTAL PROTEIN 8.3 GM/DL (6.4-8.2)
--- NOTE | 2021-04-27 21:29 | REPVR ---
PROCEDURE INFORMATION: Exam: XR Chest Exam date and time: 04/27/2021 8:56 PM Age: 30 years old Clinical indication: Pain; Other: Abdominal; Additional info: Abdominal pain TECHNIQUE: Imaging protocol: XR of the chest. Views: 2 views. COMPARISON: CR Abdomen,Flat Upright,PA CHEST 09/14/2020 4:56 PM FINDINGS: Lungs: Unremarkable. No consolidation. Pleural spaces: Unremarkable. No pleural effusion. No pneumothorax. Heart/Mediastinum: Unremarkable. No cardiomegaly. Bones/joints: Unremarkable. IMPRESSION: No acute findings. Electronically signed by: Lopez Snider On 04/27/2021 21:29:21 PM
[2021-04-27 21:30] LABS: MONO SCRN NEGATIVE (NEGATIVE)
[2021-04-27 21:39] LABS: RSV AMPLIFICATION NEGATIVE (NEGATIVE)
[2021-04-27] MEDS ORDERED: PANT40TA29 PO (21:55)
[2021-04-27] MEDS ORDERED: CARA1TAB6 PO (21:55)
== END 2021-04-27 22:27 | disposition home or self-care (01) ==
LOC: M ED 17:30
DX: R10.13 Epigastric pain (principal); E66.9 Obesity, unspecified; J45.909 Unspecified asthma, uncomplicated; G47.33 Obstructive sleep apnea (adult) (pediatric); F41.9 Anxiety disorder, unspecified; F33.9 Major depressive disorder, recurrent, unspecified; Z79.899 Other long term (current) drug therapy; Z91.048 Other nonmedicinal substance allergy status; Z88.5 Allergy status to narcotic agent; Z88.8 Allergy status to other drugs, medicaments and biological substances; Z86.69 Personal history of other diseases of the nervous system and sense organs; Z90.49 Acquired absence of other specified parts of digestive tract; Z98.890 Other specified postprocedural states; Z83.79 Family history of other diseases of the digestive system
CPT/HCPCS: 71046; 80047; 80076; 81001; 83690; 85025; 86308; 86664; 86665; 87631; 96361; 96374; 96375; 99283; C9113; J1885; J2405

== ENCOUNTER 2021-05-09 10:18 | Emergency (ER) | payer OTHER ==
[~2021-05-09] VITALS: Ht 180.3 cm; Wt 171.9 kg
[~2021-05-09 10:18] MED LIST changes: +CARA1TAB6 PO; +PANT40TA29 PO
[2021-05-09] MEDS ORDERED: ONDANSETRON 4 MG ORAL DISINTEGRATING TAB PO ONE (12:30)
--- OUTSIDE RECORDS SUMMARY | 2021-05-09 12:39 | CCD | Continuity of Care Document ---
Author Author Davie Riggins [employer] Organization Unknown Address Unknown Phone Unavailable Care Team Providers Care Crane Oiler Name Role Phone Jeet Ramirez Unavailable Oneal Kota Unavailable [facility] Unavailable [phone] Unavailable Unavailable aSlma Werner Unavailable Hansa El Unavailable Problems Name Dates Details Encounter for other orthopedic aftercare (Z47.89) 12-Apr-2021 Status: Active Medications Name Dates Details AirDuo Digihaler 232-14 MCG/ACT Jeet Ramirez Active Doxycycline Monohydrate 100 MG Jeet Ramirez* Start : 18-Apr-2021 Active Triamcinolone Acetonide 0.1 % Jeet Ramirez* Start : 18-Apr-2021 Active Vitamin D-2 50,000 U(1.25 mg) Ganesh Ramirez Start : 18-Apr-2021 Active Ibuprofen 600 MG Ganesh Ramirez Start : 18-Apr-2021 Active oxyCODONE HCl 5 MG take 1 tab. every 6 hrs. PRN for moderate pain; 2 tablets every 6 hours PRN for severe pain, MDD 40 mg./8 tablets Ganesh Ramirez Start : 18-Apr-2021 Active Topiramate 200 MG Ganesh Ramirez Start : 18-Apr-2021 Active Sucralfate 1 GM Ganesh Ramirez Start : 18-Apr-2021 Active Montelukast Sodium 10 MG Jeet Ramirez* Start : 18-Apr-2021 Active SM Pain Reliever 325 MG take 1 tablet PRN for pain 3/10 or greater, every 4 hours, MDD 6 tablets Ganesh Ramirez Start : 18-Apr-2021 Active Aspirin 325 MG Jeet Ramirez* Start : 18-Apr-2021 Active Claritin 10 MG Jeet Ramirez* Start : 18-Apr-2021 Active Keppra 500 MG Ganesh Ramirez Start : 18-Apr-2021 Active Methocarbamol 750 MG take one tablet PRN for pain 3/10 or greater every 12 hours, MDD 2 tablets Ganesh Ramirez Start : 18-Apr-2021 Active Trospium Chloride 20 MG Jeet Ramirez* Start : 18-Apr-2021 Active Desvenlafaxine ER 100 MG Jeet Ramirez* Start : 18-Apr-2021 Active Mirtazapine 15 MG Jeet Ramirez* Start : 18-Apr-2021 Active [facility] Omeprazole 20 MG Jeet Ramirez* Start : 18-Apr-2021 Active Allergies and Adverse Reactions Name Dates Details Naproxen, Dilentin, Tylenol, Seas onal, Codeine (Allergy) Onset: 18-Apr-2021 Status: Active Results Date Description Value Details No Known Results Plan of Care Name Dates Details Instructions Diet:Regular Diet Ins truction Type: Nutrition education Payers * [facility] Community Plan * [facility]
--- OUTSIDE RECORDS SUMMARY | 2021-05-09 12:39 | CCD | Continuity of Care Document ---
Author Author Davie Riggins [employer] Organization Unknown Address Unknown Phone Unavailable Care Team Providers Care Concrete Plant Laborer Name Role Phone Jeet Ramirez Unavailable Oneal Kota Unavailable [facility] Unavailable [phone] Unavailable Unavailable Salma Werner Unavailable Hansa El Unavailable Problems Name Dates Details Encounter for other orthopedic aftercare (Z47.89) 12-Apr-2021 Status: Active Medications Name Dates Details AirDuo Digihaler 232-14 MCG/ACT Jeet Ramirez Active Doxycycline Monohydrate 100 MG Ganesh Ramirez Start : 18-Apr-2021 Active Triamcinolone Acetonide 0.1 % Ganesh Ramirez Start : 18-Apr-2021 Active Vitamin D-2 50,000 U(1.25 mg) Ganesh Ramirez Start : 18-Apr-2021 Active Ibuprofen 600 MG take with food Ganesh Ramirez Start : 18-Apr-2021 Active oxyCODONE HCl 5 MG take 1 tab. every 6 hrs. PRN for moderate pain; 2 tablets every 6 hours PRN for severe pain, MDD 40 mg./8 tablets Ganesh Ramirez Start : 18-Apr-2021 Active Topiramate 200 MG Ganesh Ramirez Start : 18-Apr-2021 Active Sucralfate 1 GM Ganesh Ramirez Start : 18-Apr-2021 Active Montelukast Sodium 10 MG Ganesh Ramirez Start : 18-Apr-2021 Active SM Pain Reliever 325 MG take 1 tablet PRN for pain 3/10 or greater, every 4 hours, MDD 6 tablets Ganesh Ramirez Start : 18-Apr-2021 Active Aspirin 325 MG Jeet Ramirez* Start : 18-Apr-2021 Active Claritin 10 MG Ganesh Ramirez Start : 18-Apr-2021 Active Keppra 500 MG Ganesh Ramirez Start : 18-Apr-2021 Active Methocarbamol 750 MG take one tablet PRN for pain 3/10 or greater every 12 hours, MDD 2 tablets Jeet Ramirez* Start : 18-Apr-2021 Active Trospium Chloride 20 [...] Ins truction Type: Nutrition education Payers * [facility] Plan * [facility]
--- OUTSIDE RECORDS SUMMARY | 2021-05-09 12:39 | CCD | Continuity of Care Document ---
Author Author Davie Riggins [employer] Organization Unknown Address Unknown Phone Unavailable Care Team Providers Care Air Bag Buffer Name Role Phone Jeet Ramirez Unavailable Oneal Kota Unavailable [facility] Unavailable [phone] Unavailable Unavailable Salma Werner Unavailable Hansa El [...] every 12 hours, MDD 2 tablets Ganesh Ramirze Start : 18-Apr-2021 Active Trospium Chloride 20 [...] Ins truction Type: Nutrition education Payers * [facility] Community Plan * [facility]
--- OUTSIDE RECORDS SUMMARY | 2021-05-09 12:39 | CCD | Continuity of Care Document ---
Author Author Davie Riggins [employer] Organization Unknown Address Unknown Phone Unavailable Care Team Providers Care Web Press Operator Apprentice Name Role Phone Jeet Ramirez Unavailable Kota No Unavailable [facility] Unavailable [phone] Unavailable Unavailable Salma Werner Unavailable Hansa El Unavailable Problems Name Dates Details Encounter for other orthopedic aftercare (Z47.89) 12-Apr-2021 Status: Active Medications Name Dates Details Trospium Chloride 20 MG Jeet Ramirez Active Triamcinolone Acetonide 0.1 % Ganesh Ramirez Start : 18-Apr-2021 Active Sucralfate 1 GM Jeet Ramirez* Start : 18-Apr-2021 Active Doxycycline Monohydrate 100 MG Jeet Ramirez* [...] MG Jeet Ramirez* Start : 18-Apr-2021 Active AirDuo Digihaler 232-14 MCG/ACT Jeet Ramirez* Start : 18-Apr-2021 Active Keppra 500 MG Jeet Ramirez* Start : 18-Apr-2021 Active Methocarbamol 750 MG take one tablet PRN for pain 3/10 or greater every 12 hours, MDD 2 tablets Ganesh Ramirez Start : 18-Apr-2021 Active Mirtazapine 15 MG Jeet Ramirez* Start : 18-Apr-2021 Active Montelukast Sodium 10 MG Jeet Ramirez* Start : 18-Apr-2021 Active [facility] Omeprazole 20 MG Jeet Ramirez* Start : 18-Apr-2021 Active oxyCODONE HCl 5 MG take 1 tab. every 6 hrs. PRN for moderate pain; 2 tablets every 6 hours PRN for severe pain, MDD 40 mg./8 tablets Jeet Ramirez* Start : 18-Apr-2021 Active Topiramate 200 MG Jeet Ramirez* Start : 18-Apr-2021 Active Vitamin D-2 50,000 U(1.25 mg) Jeet Ramirez* Start : 18-Apr-2021 Active Ibuprofen 600 MG take with food Jeet Ramirez* Start : 18-Apr-2021 Active Allergies and Adverse Reactions Name Dates Details Naproxen, Dilentin, Tylenol, Seas onal, Codeine (Allergy) Onset: 18-Apr-2021 Status: Active Results Date Description Value Details No Known Results Plan of Care Name Dates Details Instructions Diet:Regular Diet Ins truction Type: Nutrition education Payers * [facility] Plan * [facility]
--- OUTSIDE RECORDS SUMMARY | 2021-05-09 12:40 | CCD | Summary of Care ---
Author Author [facility] Organization [facility] Address Unknown Phone Unavailable Care Team Providers Care Cable Rigger Name Role Phone Jeet Ramirez MD PCP Reason for Referral * Diagnostic Medical (Routine) Referred By Contact Referred To Contact Status Reason Specialty Diagnoses / Procedures Christal Mahajan [address] [address] Email: [email or web address] Eeg Emg [address] [address] Authorized Neurology Diagnoses Seizure P rocedures EEG Sleep Deprived Electronically signed by Christal Mahajan DO at Reason for Visit * Diagnostic Medical (Routine) Referred By Contact Referred To Contact Status Reason Specialty Diagnoses / Procedures Christal Mahajan DO [address] [place] [id number] Email: [email or web address] E[facility] Emg [address] [address] Authorized Neurology Diagnoses Seizure P rocedures EEG Sleep Deprived Encounter Details Care Team Description Date Type Department Christal Mahajan DO [address] [place] [id number] [phone] Seizure 03/07/2021 [facility] Clinical Encounter Neurophysiology at [address] [place] [address] [place] [address] Allergies Comments Active Allergy Reactions Severity Noted Date Phenytoin Hives Medium 08/09/2013 Seasonal Environmental Itching Low 01/26/2021 Naproxen Hives Medium 08/09/2013 Acetaminophen-Codeine Hives Medium 08/09/19 14 documented as of this encounter (statuses as of 03/11/2021) Medications End Date Status Medication Sig Dispensed Refills Start Date Active topiramate (TOPAMAX) 200 Take 200 mg 0 MG tablet by mouth Two Times Daily. Active omeprazole (PRILOSEC) 40 Take 40 mg by 0 MG capsule mouth Two Times Daily Active sucralfate (CARAFATE) 1 G Take 1 g by 0 tablet mouth Two times daily as needed Active montelukast (SINGULAIR) Take 10 mg by 0 10 MG tablet mouth nightly. Active cetirizine (ZYRTEC) 10 MG Take 10 mg by 0 tablet mouth daily. Active D3-50 39102 units capsule Take by mouth 08/29 once a week 9 Active Mirtazapine 15 MG Oral Take 15 mg by 0 01 Tablet (REMERON) mouth daily 9 Active Desvenlafaxine Succinate Take 100 mg 0 04/07 ER 100 MG Oral Tablet by mouth 0 Extended Release 24 Hour daily (PRISTIQ) Active levETIRAcetam 500 MG Oral Take 500 mg 0 Tablet (KEPPRA) by mouth Two Times Daily 04/10/2021 Active Trospium Chloride 20 MG Take 1 tablet 60 tablet 2 Oral Tablet (SANCTURA) by mouth Two 1 times daily before breakfast and dinner Active Fluticasone-Salmeterol(se Inhale 1 0 nsor) 232-14 MCG/ACT Inhaler into Aerosol Powder Breath the lungs Two Activated Times Daily Active Loratadine 10 MG Oral Take 10 mg by 0 Tablet (CLARITIN) mouth daily Active Methocarbamol 750 MG Oral Take 1 tablet 0 01/25 Tablet (ROBAXIN) by mouth Two 1 times daily as needed (pain) Active Senna 8.6 MG Oral Tablet Take 2 120 tablet 0 0 tablets by 1 mouth daily as needed Active Docusate Sodium 100 MG Take 1 20 capsule 0 Oral Capsule (COLACE) capsule by 1 mouth Two Times Daily Active oxyCODONE HCl 5 MG Oral Take 5-10 mg 0 Tablet (ROXICODONE) by mouth every 4 (four) hours as needed for Pain documented as of this encounter (statuses as of 03/11/2021) Active Problems Patient Care Coordination Note Pt has been [facility] connected in the past, however, [employer] & other service coordination services ended as of 10/26/19. At this time, the pt is only enrolled in "[facility]" services. 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 Abnormal gait 01/26/2021 Urethral stricture 05/28/2017 Dysuria 04/01/2017 Orthostatic dizziness 03/22/2015 Peripheral neuropathy 03/22/2015 HTN (hypertension) 03/22/2015 Seizures 03/20/2015 Partial epilepsy with impairment of consciousness, in tractable 03/20/2015 Urethral stricture unspecified 10/05/2014 Morbid obesity with BMI of 50.0-59.9, adult 01/25/20 14 Hematuria Urinary retention Difficult or painful urination Depression Urinary frequency documented as of this encounter (statuses as of 03/11/2021) Immunizations Name Administration Dates Next Due Influenza Quad IM Pres 06/01/2020, 07/19/2019 Free (0.5 mL dose) Influenza Quad IM with 08/16/2015 Pres (0.5 mL dose) Influenza Split 04/23/2018, 08/14/2017 Influenza Split Trivalent 05/01/2016 preservative free Moderna SARS-CoV-2 12/29/2020 Vaccine Tdap 12/30/2017 documented as of this encounter Social History Date Tobacco Use Types Packs/Day Years Used Never Smoker Smokeless Tobacco: Never Used Comments Alcohol Use Standard Drinks/Week No 0 (1 standard drink = 0.6 o z pure alcohol) Sex Assigned at Date Recorded Not on file Date Recorded COVID-19 Exposure Response 03/07/2021 7:05 AM EDT In the last month, have you been in contact with No / Unsure someone who was confirmed or suspected to have Coronavirus / COVID-19? documented as of this encounter Last Filed Vital Signs Not on filedocumented in this encounter Procedure Notes * Rafael Guzman MBBS - 03/07/2021 7:30 AM EDT Associated Order(s): EEG SLEEP DEPRIVED EEG REPORT NUMBER [id number] DATE OF PROCEDURE: 03/07/2021 HISTORY: The patient is a 30 y.o. male with a history of epilepsy since age 1 years. He f ollow up with Dr. Mahajan. Currently he is on Keppra 500 mg BID, and Topamax 200 mg BID. Current Outpatient Medications on File Prior to Encounter Medication Sig Dispense Refill Aspirin EC 325 MG Oral Tablet Delayed Release Take 1 tablet by mouth min y Take with food, to help prevent blood clots 30 tablet 0 cetirizine (ZYRTEC) 10 MG tablet Take 10 mg by mouth daily. D3-50 09877 units capsule Take by mouth once a week 11 Desvenlafaxine Succinate ER 100 MG Oral Tablet Extended Release 24 Hour ( PRISTIQ) Take 100 mg by mouth daily Docusate Sodium 100 MG Oral Capsule (COLACE) Take 1 capsule by mouth Two Times Daily 20 capsule 0 Fluticasone-Salmeterol(sensor) 232-14 MCG/ACT Aerosol Powder Breath Activ ated Inhale 1 Inhaler into the lungs Two Times Daily levETIRAcetam 500 MG Oral Tablet (KEPPRA) Take 500 mg by mouth Two Times Daily Loratadine 10 MG Oral Tablet (CLARITIN) Take 10 mg by mouth daily Methocarbamol 750 MG Oral Tablet (ROBAXIN) Take 1 tablet by mouth Two chavez es daily as needed (pain) Mirtazapine 15 MG Oral Tablet (REMERON) Take 15 mg by mouth daily montelukast (SINGULAIR) 10 MG tablet Take 10 mg by mouth nightly. omeprazole (PRILOSEC) 40 MG capsule Take 40 mg by mouth Two Times Daily oxyCODONE HCl 5 MG Oral Tablet (ROXICODONE) Take 5-10 mg by mouth every 4 (four) hours as needed for Pain Senna 8.6 MG Oral Tablet Take 2 tablets by mouth daily as needed 120 tabl et 0 sucralfate (CARAFATE) 1 G tablet Take 1 g by mouth Two times daily as nee ded topiramate (TOPAMAX) 200 MG tablet Take 200 mg by mouth Two Times Daily. Trospium Chloride 20 MG Oral Tablet (SANCTURA) Take 1 tablet by mouth Two times daily before breakfast and dinner 60 tablet 2 No current facility-administered medications on file prior to encounter. Scheduled Meds: Continuous Infusions: PRN Meds:. TECHNICAL DESCRIPTION: This digital EEG was recorded using 2 EKG and 21 scalp and/or ear electrodes. I t was reviewed in referential and bipolar montages following reformatting in the 10-20 International electrode placement system. EEG INTERPRETATION: Background in the most stimulated state consists of 11-28 microvolt, 8-9 Hz symm etric, waxing and waning posterior dominant rhythm with good reactivity to eye o pening. Faster frequencies including 28-35 microvolts, 6-9 Hz activity is seen i n the frontal leads. There is beta waves seen intermittently. Drowsiness/Sleep [] The patient remains only in the awake state throughout the study. [] The patient is intubated, comatose and unresponsive during the recording. [] The patient is not intubated, but comatose and unresponsive during the record ing. [] The patient is stuporous throughout the recording. [x] During drowsiness, there is increased emergence of theta and delta rhythms, but full sleep is not achieved during this recording. [x] During drowsiness, there is increased emergence of theta and delta rhythms, and during sleep the following sleep structures were seen: [x] Vertex sharp transients [x] Symmetric sleep spindles [x] POSTs [] K -complexes [] Other: Hyperventilation Not obtained. Photic stimulation Photic stimulation with flash frequencies of 2-21 Hz is associated with photic d riving at frequencies of 6 Hz to 12 Hz. No photoparoxysmal response was seen. 2-lead EKG showed normal sinus rhythm. IMPRESSION: This extended 45 minutes EEG done in the awake and drowsy states is within the range of normal variation. No seizure or epileptiform discharges seen during the recording. The procedure interpreted under supervision of Dr. Herman. [facility] Associated attestation - Simone Herman MD - 03/08/2021 3:14 PM EDT I, Dr. Michelle Herman, certify that I reviewed this study with the resident, and agree with the findings in their note. documented in this encounter Plan of Treatment Care Team Description Date Type Specialty Kota No MD [address] [place] [address] 03/23/2021 Office Visit Orthopedic Surgery Bradly Gutierrez MD [address] [place] [address] 04/24/2021 Office Visit Urology Christal Mahajan, DO [address] [facility] [address] [place] [address] 05/23/2021 Office Visit Neurology Health Maintenance Due Date Last Done Comments MMR Vaccines (1 of - 1989 Standard series) Varicella Vaccines (1 of 1989 2 - 2-dose childhood series) DTaP,Tdap,and Td Vaccines 01/27/2018 12/30/2017 (2 - Td or Tdap) COVID-19 Vaccine (2 - 01/26/2021 12/29/2020 Moderna 2-dose series) Influenza Vaccine 04/27/2021 06/01/2020, 07/19/2019, 04/23/2018, Additional history exists Pneumococcal Vaccine: 65+ 2053 Years (1 of 1 - PPSV23) HIV Screening Completed 03/20/2015 HIB Vaccines Aged Out No longer eligible based on patient's age to complete this topic Hepatitis A Vaccines Aged Out No longer eligibl e based on patient's age to complete this topic Hepatitis B Vaccines Aged Out No longer eligibl e based on patient's age to complete this topic IPV Vaccines Aged Out No longer eligible based on patient's age to complete this topic Pneumococcal Vaccine: Aged Out No longer eligib le based on patient's age to Pediatrics (0 to 5 Years) complete this topic and At-Risk Patients (6 to 64 Years) documented as of this encounter Implants Device Identifier Shelf Expiration Date Model / Serial / L ot Implanted Type Area Manufactur er [id number] / / Screw Monique.6.5 X80mm- 16mm/Thd - Right: Ankle SYNT HES [id number] [facility] Implanted: Qty: 1 on 01/30/2021 by Kota No MD at [facility] [id number] / / Screw Monique.6.5 X85mm- 16mm/Thd - SYNTHES [id number] [employer] [facility] Implanted: Qty: 1 on 01/30/2021 by Kota No MD at [facility] documented as of this encounter Procedures Comments Procedure Name Priority Date/Time Associated Diag nosis EEG SLEEP DEPRIVED Routine 03/07/2021 Seizure 7:30 AM EDT documented in this encounter Results * EEG Sleep Deprived (03/07/2021 7:30 AM EDT) Narrative Performed At [facility] EXTERNAL NON-INTERFACED LAB 03/07/2021 11:54 AM EEG REPORT NUMBER [id number] DATE OF PROCEDURE: 03/07/2021 HISTORY: The patient is a 30 y.o. male with a hi story of epilepsy since age 1 years. He follow up with Dr. Cash lynch. Currently he is on Keppra 500 mg BID, and Topamax 200 mg B ID. Current Outpatient Medications on File Prior to Encounter Medication Sig Dispense Refill Aspirin EC 325 MG Oral Tablet Delayed Release Take 1 tablet by mouth daily Take with food, to help pre vent blood clots 30 tablet 0 cetirizine (ZYRTEC) 10 MG tablet Take 10 mg by mouth daily. D3-50 69260 units capsule Take by nehal once a week 11 Desvenlafaxine Succinate ER 100 MG Or al Tablet Extended Release 24 Hour (PRISTIQ) Take 100 mg by mouth daily Docusate Sodium 100 MG Oral Capsule ( COLACE) Take 1 capsule by mouth Two Times Daily 20 capsule 0 Fluticasone-Salmeterol(sensor) 232-14 MCG/ACT Aerosol Powder Breath Activated Inhale 1 Inhaler into the lungs Two Times Daily levETIRAcetam 500 MG Oral Tablet (KEP PRA) Take 500 mg by mouth Two Times Daily Loratadine 10 MG Oral Tablet (CLARITI N) Take 10 mg by mouth daily Methocarbamol 750 MG Oral Tablet (KARLY AXIN) Take 1 tablet by mouth Two times daily as needed (pain) Mirtazapine 15 MG Oral Tablet (REMERO N) Take 15 mg by mouth daily montelukast (SINGULAIR) 10 MG tablet Take 10 mg by mouth nightly. omeprazole (PRILOSEC) 40 MG capsule T kassi 40 mg by mouth Two Times Daily oxyCODONE HCl 5 MG Oral Tablet (ROXIC ODONE) Take 5-10 mg by mouth every 4 (four) hours as needed for Pain Senna 8.6 MG Oral Tablet Take 2 table ts by mouth daily as needed 120 tablet 0 sucralfate (CARAFATE) 1 G tablet Take 1 g by mouth Two times daily as needed topiramate (TOPAMAX) 200 MG tablet Ta ke 200 mg by mouth Two Times Daily. Trospium Chloride 20 MG Oral Tablet ( SANCTURA) Take 1 tablet by mouth Two times daily before breakfast and dinner 60 tablet 2 No current facility-administered medica tions on file prior to encounter. Scheduled Meds: Continuous Infusions: PRN Meds:. TECHNICAL DESCRIPTION: This digital EEG was recorded using 2 E KG and 21 scalp and/or ear electrodes. It was reviewed in referential and bip olar montages following reformatting in the 10-20 Int ernational electrode placement system. EEG INTERPRETATION: Background in the most stimulated state consists of 11-28 microvolt, 8-9 Hz symmetric, waxing and waning posterior dominant rhythm with good reactivity to eye open ing. Faster frequencies including 28-35 microvolts, 6-9 Hz acti vity is seen in the frontal leads. There is beta waves seen intermittently. Drowsiness/Sleep [] The patient remains only in the awak e state throughout the study. [] The patient is intubated, comatose a nd unresponsive during the recording. [] The patient is not intubated, but co matose and unresponsive during the recording. [] The patient is stuporous throughout the recording. [x] During drowsiness, there is increas ed emergence of theta and delta rhythms, but full sleep is not ac hieved during this recording. [x] During drowsiness, there is increas ed emergence of theta and delta rhythms, and during sleep the fol lowing sleep structures were seen: [x] Vertex sharp transients [x] Symmetric sleep spindles [x] POSTs [] K-complexes [] Other: Hyperventilation Not obtained. Photic stimulation Photic stimulation with flash frequenci es of 2-21 Hz is associated with photic driving at frequ encies of 6 Hz to 12 Hz. No photoparoxysmal response was seen. 2-lead EKG showed normal sinus rhythm. IMPRESSION: This extended 45 minutes EE G done in the awake and drowsy states is within the range of normal variation. No seizure or epileptiform discharges s een during the recording. The procedure interpreted under supervi carlos of Dr. Herman. [facility] Veliz Performing Organization Address City/State/ZIP Code [place] Number EXTERNAL NON-INTERFACED LAB documented in this encounter Visit Diagnoses Diagnosis Seizure Other convulsions documented in this encounter
--- OUTSIDE RECORDS SUMMARY | 2021-05-09 12:40 | CCD ---
Author Davie Rajan Organization Unknown Address Unknown Phone Unavailable Care Team Providers Care Wallpaper Remover Steam Name Role Phone Dr. Kristie Flores Unavailable Unavailable Advance directives Directive Description Status Antibiotic Therapy Full Code (CPR) Verified By Medical Record Only Cardiopulmonary Resuscitation Full Code (CPR) Verified B y Medical Record Only Intravenous Infusion Full Code (CPR) Verified By Medical Record Only Intubation Full Code (CPR) Verified By Medical Record Only Life Support Full Code (CPR) Verified By Medical Record Only Resuscitation Full Code (CPR) Verified By Medical Record Only Allergies Type Substance Reaction Status drug allergy Dilantin Active drug allergy Naproxen Active propensity to adverse reactions Seasonal Active drug allergy Tylenol Active Problems Problem Effective Dates Problem Status Walking disability (finding) 02/07/2021 Active F32.9 MAJOR DEPRESSIVE DISORDER, SINGLE EPISODE, UNSPECIFIED 02/06/2021 Active M25.571 PAIN IN RIGHT ANKLE AND JOINTS OF RIGHT FOOT 021 Active M19.071 PRIMARY OSTEOARTHRITIS, RIGHT ANKLE AND FOOT 021 Active G40.909 EPILEPSY, UNSPECIFIED, NOT INTRACTABLE, WITHOU T STATUS EPILEPTICUS 02/06/2021 Active I10 ESSENTIAL (PRIMARY) HYPERTENSION 02/06/2021 Act rebekah M62.81 MUSCLE WEAKNESS (GENERALIZED) 02/07/2021 Act rebekah K21.9 GASTRO-ESOPHAGEAL REFLUX DISEASE WITHOUT ESOPHAGITIS 0 02/06/2021 Active N35.919 UNSPECIFIED URETHRAL STRICTURE, MALE, UNSPECIFIED SI TE 02/06/2021 Active J45.909 UNSPECIFIED ASTHMA, UNCOMPLICATED 02/06/2021 Active Z68.43 BODY MASS INDEX [BMI] 50.0-59.9, ADULT 02/06/2021 Active Z47.89 ENCOUNTER FOR OTHER ORTHOPEDIC AFTERCARE 02/06/2021 Active G47.33 OBSTRUCTIVE SLEEP APNEA (ADULT) (PEDIATRIC) Active Morbid obesity (disorder) 02/06/2021 Active Z20.822 CONTACT WITH AND (SUSPECTED) EXPOSURE TO COVID-19 Active Procedures No Known Procedures Medications Medication Dose Form Route Sig Text Dates Status Cephalexin Tablet 250 MG 1 tablet Tablet Oral GIV E 1 TABLET BY MOUTH THREE TIMES A DAY FOR INFECTION FOR 7 DAYS 03/08/2021 20:00:00 03/15/2021 19:59:00 Completed Antifungal Powder 2 % Powder External Apply to feet topically two times a day for fungus for 10 Days 03/01/2021 17:00:00 03/11/2021 16:59:00 Completed Tuberculin PPD Solution 5 UNIT/0.1ML Solution Intr adermal Inject 0.1 ml intradermally every day shift every Mon for TB Screening for 1 Day THEN Inject 0.001 ml intradermally every day shift every Wed for TB Screening for 2 Days 02/26/2021 7:00:00 03/02/2021 6:59:00 Completed Cephalexin Capsule 500 MG 1 capsule Capsule Oral GI VE 1 CAPSULE BY MOUTH THREE TIMES A DAY FOR INFECTION FOR 7 DAYS 02/13/2021 20:00:00 02/20/2021 19:59:00 Completed Tuberculin PPD Solution 5 UNIT/0.1ML Solution Intr adermal Inject 0.1 ml intradermally every day shift every Mon for TB Screening for 1 Day THEN Inject 0.001 ml intradermally every day shift every Wed for TB Screening for 2 Days 02/12/2021 7:00:00 02/16/2021 6:59:00 Completed Polyethylene Glycol 3350 Kit 1 packet Kit Oral GIVE 1 PACKET BY MOUTH ONE TIME A DAY FOR CONSTIPATION FOR 3 DAYS 02/07/2021 8:00:00 02/10/2021 7:59:00 Completed oxyCODONE HCl Tablet 5 MG Tablet Oral GI VE 1 TABLET BY MOUTH EVERY 6 HOURS NEEDED FOR MOD PAIN AND GIVE 2 TABLET BY MOUTH EVERY 6 HOURS NEEDED FOR SEVERE PAIN MAX DAILY DOSE 8 TABS - 40 MG 02/06/2021 17:00:00 Docusate Sodium Capsule 100 MG 1 capsule Capsule Oral GIVE 1 CAPSULE BY MOUTH TWO TIMES A DAY FOR CONSTIPATION 02/06/2021 20:00:00 Fluticasone-Salmeterol Aerosol Powder Breath Activated 232-1 4 MCG/ACT 1 puff Aerosol Powder Breath Activated Inhalation 1 PUFF INHALE ORALLY T WO TIMES A DAY FOR SHORTNESS OF BREATH 02/06/2021 20:00:00 Desvenlafaxine ER Tablet Extended Release 24 Hour 100 MG 1 t ablet Tablet Extended Release 24 Hour Oral GIVE 1 TABLET BY MOUTH ONE T AKASH A DAY FOR ANTIDEPRESSANT 02/07/2021 8:00:00 Sucralfate Tablet 1 GM 1 tablet Tablet Oral Give 1 tablet by mouth every 12 hours as needed for Ulcers 02/06/2021 17:30:00 02/20/2021 11:02:00 Aborted Methocarbamol Tablet 750 MG 1 tablet Tablet Oral GIVE 1 TABLET BY MOUTH EVERY 12 HOURS NEEDED FOR PAIN 02/06/2021 17:15:00 Topiramate Tablet 200 MG 1 tablet Tablet Oral GIV E 1 TABLET BY MOUTH TWO TIMES A DAY FOR SEIZURES . 02/06/2021 20:00:00 Mirtazapine Tablet 15 MG 1 tablet Tablet Oral GIV E 1 TABLET BY MOUTH AT BEDTIME FOR DEPRESSION 02/06/2021 20:00:00 Senna Tablet 8.6 MG 2 tablet Tablet Oral Give 2 t ablet by mouth every 24 hours as needed for constipation 02/06/2021 17:30:00 Omeprazole Tablet Delayed Release 20 MG 2 tablet Tablet Delayed Release Oral GIVE 2 TABLET BY MOUTH TWO TIMES A DAY FOR GERD 02/06/2021 20:00:00 Loratadine Tablet 10 MG 1 tablet Tablet Oral GIVE 1 TABLET BY MOUTH ONE TIME A DAY FOR ALLERGIES 02/07/2021 8:00:00 02/20/2021 11:03:00 Aborted Cetirizine HCl Tablet 10 MG 1 tablet Tablet Oral GIVE 1 TABLET BY MOUTH ONE TIME A DAY FOR ALLERGIES 02/07/2021 8:00:00 Montelukast Sodium Tablet 10 MG 1 tablet Tablet Oral GIVE 1 TABLET BY MOUTH AT BEDTIME FOR SHORTNESS OF BREATH 02/06/2021 20:00:00 Keppra Tablet 500 MG 1 tablet Tablet Oral Give 1 tablet by mouth two times a day for Seizures 02/06/2021 20:00:00 Aspirin Tablet 325 MG 1 tablet Tablet Oral GIVE 1 TABLET BY MOUTH ONE TIME A DAY FOR BLOOD CLOT PREVENTION 02/07/2021 8:00:00 D3-50 Capsule 1.25 MG (09979 UT) 1 capsule Capsule Oral GIVE 1 CAPSULE BY MOUTH ONE TIME A DAY EVERY FRIDAY FOR SUPPLEMENT 02/07/2021 8:00:00 04/09/2021 16:12:00 Aborted Trospium Chloride Tablet 20 MG 1 tablet Tablet Oral GIVE 1 TABLET BY MOUTH TWO TIMES A DAY FOR URINARY TAKE BEFORE BREAKFAST AND DINNER 02/06/2021 20:00:00 Sorbitol Solution 70 % 30 cc Solution Oral Give 30 cc by mouth every 24 hours as needed for Constipation if no bowel movement in 2 days 02/06/2021 15:27:00 Results Date Test Result Interpretation Reference Range Status Notes 02/15/2021 11:31:00 CBCDIFF / BASIC METABOLIC Completed 02/15/2021 12:33:00 WBC 8.7 10*3/uL Normal (4.1-11.0) Final 02/15/2021 12:33:00 RBC 5.25 10*6/uL Normal (4.60-6.10) Final 02/15/2021 12:33:00 HGB 15.2 g/dL Normal (13.5-18.0) Final 02/15/2021 12:33:00 HCT 44.9 % Normal (41.0-53.0) Final 02/15/2021 12:33:00 MCV 85.6 fL Normal (80.0-95.0) Final 02/15/2021 12:33:00 MCH 29.0 pg Normal (27.0-32.0) Final 02/15/2021 12:33:00 MCHC 33.8 g/dL Normal (32.0-36.0) Final 02/15/2021 12:33:00 RDW 15.0 % Above High Normal (10.5-14.5) Final 02/15/2021 12:33:00 PLT 311 10*3/uL Normal (150-450) Final 02/15/2021 12:33:00 MPV 7.2 fL Normal (7.1-10.7) Final 02/15/2021 12:33:00 NEUT % 65.4 % Normal (35.0-75.0) Final 02/15/2021 12:33:00 LYMPH % 23.5 % Normal (16.0-52.0) Final 02/15/2021 12:33:00 MONO % 7.0 % Normal (0.0-8.0) Final 02/15/2021 12:33:00 EOS % 3.9 % Normal (0.0-5.0) Final 02/15/2021 12:33:00 BASO % 0.2 % Normal (0.0-4.0) Final 02/15/2021 12:33:00 NEUT # 5.7 10*3/uL Normal (1.8-7.7) Final 02/15/2021 12:33:00 LYMPH # 2.0 10*3/uL Normal (1.2-4.8) Final 02/15/2021 12:33:00 MONO # 0.6 10*3/uL Normal (0.0-0.8) Final 02/15/2021 12:33:00 EOS # 0.3 10*3/uL Normal (0.0-0.5) Final 02/15/2021 12:33:00 BASO # 0.0 10*3/uL Normal (0.0-0.2) Final 02/15/2021 12:33:00 SODIUM 140 mmol/L Normal (136-145) Final 02/15/2021 12:33:00 POTASSIUM 3.8 mmol/L Normal (3.6-5.2) Final 02/15/2021 12:33:00 CHLORIDE 105 mmol/L Normal (100-108) Final 02/15/2021 12:33:00 CO2 26 mmol/L Normal (22-31) Final 02/15/2021 12:33:00 ANION GAP 9 mmol/L Normal (7-16) Final 02/15/2021 12:33:00 UREA NITROGEN 14 mg/dL Normal (7-24) Final 02/15/2021 12:33:00 CREATININE 0.93 mg/dL Normal (0.80-1.30) Final 02/15/2021 12:33:00 BUN/CREAT RATIO 15.1 RATIO Normal (10.0-20.0) F inal 02/15/2021 12:33:00 GLUCOSE 90 mg/dL Normal (70-99) Final 02/15/2021 12:33:00 CALCIUM 9.0 mg/dL Normal (8.4-10.2) Final 02/15/2021 12:33:00 GFR >60 ml/min/1.73m2 Normal (>59) Fi nal 02/15/2021 12:33:00 GFR ( AMER) >60 ml/min/1.73m2 Normal (>5 9) Final 02/15/2021 12:33:00 GFR INTERPRETATION . Normal F inal 02/13/2021 10:04:00 CBCDIFF / BASIC METABOLIC Completed 02/13/2021 11:13:00 WBC 9.4 10*3/uL Normal (4.1-11.0) Final 02/13/2021 11:13:00 RBC 5.34 10*6/uL Normal (4.60-6.10) Final 02/13/2021 11:13:00 HGB 15.3 g/dL Normal (13.5-18.0) Final 02/13/2021 11:13:00 HCT 45.4 % Normal (41.0-53.0) Final 02/13/2021 11:13:00 MCV 84.9 fL Normal (80.0-95.0) Final 02/13/2021 11:13:00 MCH 28.7 pg Normal (27.0-32.0) Final 02/13/2021 11:13:00 MCHC 33.8 g/dL Normal (32.0-36.0) Final 02/13/2021 11:13:00 RDW 15.0 % Above High Normal (10.5-14.5) Final 02/13/2021 11:13:00 PLT 338 10*3/uL Normal (150-450) Final 02/13/2021 11:13:00 MPV 7.2 fL Normal (7.1-10.7) Final 02/13/2021 11:13:00 NEUT % 73.3 % Normal (35.0-75.0) Final 02/13/2021 11:13:00 LYMPH % 16.1 % Normal (16.0-52.0) Final 02/13/2021 11:13:00 MONO % 6.4 % Normal (0.0-8.0) Final 02/13/2021 11:13:00 EOS % 4.0 % Normal (0.0-5.0) Final 02/13/2021 11:13:00 BASO % 0.2 % Normal (0.0-4.0) Final 02/13/2021 11:13:00 NEUT # 6.9 10*3/uL Normal (1.8-7.7) Final 02/13/2021 11:13:00 LYMPH # 1.5 10*3/uL Normal (1.2-4.8) Final 02/13/2021 11:13:00 MONO # 0.6 10*3/uL Normal (0.0-0.8) Final 02/13/2021 11:13:00 EOS # 0.4 10*3/uL Normal (0.0-0.5) Final 02/13/2021 11:13:00 BASO # 0.0 10*3/uL Normal (0.0-0.2) Final 02/13/2021 11:13:00 SODIUM 141 mmol/L Normal (136-145) Final 02/13/2021 11:13:00 POTASSIUM 3.9 mmol/L Normal (3.6-5.2) Final 02/13/2021 11:13:00 CHLORIDE 106 mmol/L Normal (100-108) Final 02/13/2021 11:13:00 CO2 26 mmol/L Normal (22-31) Final 02/13/2021 11:13:00 ANION GAP 9 mmol/L Normal (7-16) Final 02/13/2021 11:13:00 UREA NITROGEN 13 mg/dL Normal (7-24) Final 02/13/2021 11:13:00 CREATININE 0.87 mg/dL Normal (0.80-1.30) Final 02/13/2021 11:13:00 BUN/CREAT RATIO 14.9 RATIO Normal (10.0-20.0) F inal 02/13/2021 11:13:00 GLUCOSE 78 mg/dL Normal (70-99) Final 02/13/2021 11:13:00 CALCIUM 8.9 mg/dL Normal (8.4-10.2) Final 02/13/2021 11:13:00 GFR >60 ml/min/1.73m2 Normal (>59) Fi nal 02/13/2021 11:13:00 GFR ( AMER) >60 ml/min/1.73m2 Normal (>5 9) Final 02/13/2021 11:13:00 GFR INTERPRETATION . Normal F inal 03/29/2021 9:40:00 CBCDIFF / BASIC METABOLIC Completed 03/29/2021 10:39:00 WBC 9.2 10*3/uL Normal (4.1-11.0) Final 03/29/2021 10:39:00 RBC 5.17 10*6/uL Normal (4.60-6.10) Final 03/29/2021 10:39:00 HGB 14.8 g/dL Normal (13.5-18.0) Final 03/29/2021 10:39:00 HCT 44.1 % Normal (41.0-53.0) Final 03/29/2021 10:39:00 MCV 85.2 fL Normal (80.0-95.0) Final 03/29/2021 10:39:00 MCH 28.7 pg Normal (27.0-32.0) Final 03/29/2021 10:39:00 MCHC 33.7 g/dL Normal (32.0-36.0) Final 03/29/2021 10:39:00 RDW 15.2 % Above High Normal (10.5-14.5) Final 03/29/2021 10:39:00 PLT 208 10*3/uL Normal (150-450) Final 03/29/2021 10:39:00 MPV 7.6 fL Normal (7.1-10.7) Final 03/29/2021 10:39:00 NEUT % 65.5 % Normal (35.0-75.0) Final 03/29/2021 10:39:00 LYMPH % 22.2 % Normal (16.0-52.0) Final 03/29/2021 10:39:00 MONO % 8.1 % Above High Normal (0.0-8.0) Fi nal 03/29/2021 10:39:00 EOS % 3.9 % Normal (0.0-5.0) Final 03/29/2021 10:39:00 BASO % 0.3 % Normal (0.0-4.0) Final 03/29/2021 10:39:00 NEUT # 6.0 10*3/uL Normal (1.8-7.7) Final 03/29/2021 10:39:00 LYMPH # 2.0 10*3/uL Normal (1.2-4.8) Final 03/29/2021 10:39:00 MONO # 0.7 10*3/uL Normal (0.0-0.8) Final 03/29/2021 10:39:00 EOS # 0.4 10*3/uL Normal (0.0-0.5) Final 03/29/2021 10:39:00 BASO # 0.0 10*3/uL Normal (0.0-0.2) Final 03/29/2021 10:39:00 SODIUM 141 mmol/L Normal (136-145) Final 03/29/2021 10:39:00 POTASSIUM 3.9 mmol/L Normal (3.6-5.2) Final 03/29/2021 10:39:00 CHLORIDE 107 mmol/L Normal (100-108) Final 03/29/2021 10:39:00 CO2 28 mmol/L Normal (22-31) Final 03/29/2021 10:39:00 ANION GAP 6 mmol/L Below Low normal (7-16) Fin al 03/29/2021 10:39:00 UREA NITROGEN 11 mg/dL Normal (7-24) Final 03/29/2021 10:39:00 CREATININE 0.96 mg/dL Normal (0.80-1.30) Final 03/29/2021 10:39:00 BUN/CREAT RATIO 11.5 RATIO Normal (10.0-20.0) F inal 03/29/2021 10:39:00 GLUCOSE 75 mg/dL Normal (70-99) Final 03/29/2021 10:39:00 CALCIUM 8.9 mg/dL Normal (8.4-10.2) Final 03/29/2021 10:39:00 GFR >60 ml/min/1.73m2 Normal (>59) Fi nal 03/29/2021 10:39:00 GFR ( AMER) >60 ml/min/1.73m2 Normal (>5 9) Final 03/29/2021 10:39:00 GFR INTERPRETATION . Normal F inal 03/12/2021 13:13:00 CBCDIFF / BASIC METABOLIC Completed 03/12/2021 14:57:00 WBC 9.6 10*3/uL Normal (4.1-11.0) Final 03/12/2021 14:57:00 RBC 5.24 10*6/uL Normal (4.60-6.10) Final 03/12/2021 14:57:00 HGB 15.1 g/dL Normal (13.5-18.0) Final 03/12/2021 14:57:00 HCT 45.1 % Normal (41.0-53.0) Final 03/12/2021 14:57:00 MCV 86.0 fL Normal (80.0-95.0) Final 03/12/2021 14:57:00 MCH 28.8 pg Normal (27.0-32.0) Final 03/12/2021 14:57:00 MCHC 33.5 g/dL Normal (32.0-36.0) Final 03/12/2021 14:57:00 RDW 15.7 % Above High Normal (10.5-14.5) Final 03/12/2021 14:57:00 PLT 221 10*3/uL Normal (150-450) Final 03/12/2021 14:57:00 MPV 8.0 fL Normal (7.1-10.7) Final 03/12/2021 14:57:00 NEUT % 72.9 % Normal (35.0-75.0) Final 03/12/2021 14:57:00 LYMPH % 16.4 % Normal (16.0-52.0) Final 03/12/2021 14:57:00 MONO % 6.4 % Normal (0.0-8.0) Final 03/12/2021 14:57:00 EOS % 4.1 % Normal (0.0-5.0) Final 03/12/2021 14:57:00 BASO % 0.2 % Normal (0.0-4.0) Final 03/12/2021 14:57:00 NEUT # 7.0 10*3/uL Normal (1.8-7.7) Final 03/12/2021 14:57:00 LYMPH # 1.6 10*3/uL Normal (1.2-4.8) Final 03/12/2021 14:57:00 MONO # 0.6 10*3/uL Normal (0.0-0.8) Final 03/12/2021 14:57:00 EOS # 0.4 10*3/uL Normal (0.0-0.5) Final 03/12/2021 14:57:00 BASO # 0.0 10*3/uL Normal (0.0-0.2) Final 03/12/2021 14:57:00 SODIUM 141 mmol/L Normal (136-145) Final 03/12/2021 14:57:00 POTASSIUM 4.0 mmol/L Normal (3.6-5.2) Final 03/12/2021 14:57:00 CHLORIDE 106 mmol/L Normal (100-108) Final 03/12/2021 14:57:00 CO2 24 mmol/L Normal (22-31) Final 03/12/2021 14:57:00 ANION GAP 11 mmol/L Normal (7-16) Final 03/12/2021 14:57:00 UREA NITROGEN 12 mg/dL Normal (7-24) Final 03/12/2021 14:57:00 CREATININE 0.82 mg/dL Normal (0.80-1.30) Final 03/12/2021 14:57:00 BUN/CREAT RATIO 14.6 RATIO Normal (10.0-20.0) F inal 03/12/2021 14:57:00 GLUCOSE 64 mg/dL Below Low normal (70-99) Fin al 03/12/2021 14:57:00 CALCIUM 8.4 mg/dL Normal (8.4-10.2) Final 03/12/2021 14:57:00 GFR >60 ml/min/1.73m2 Normal (>59) Fi nal 03/12/2021 14:57:00 GFR ( AMER) >60 ml/min/1.73m2 Normal (>5 9) Final 03/12/2021 14:57:00 GFR INTERPRETATION . Normal F inal 02/08/2021 10:43:00 CBCDIFF / KEPPRA / COMP. METABOLIC Completed 02/08/2021 12:52:00 KEPPRA @ 8 ug/mL Normal (5-30) Final 02/08/2021 12:52:00 WBC 9.9 10*3/uL Normal (4.1-11.0) Final 02/08/2021 12:52:00 RBC 4.73 10*6/uL Normal (4.60-6.10) Final 02/08/2021 12:52:00 HGB 13.5 g/dL Normal (13.5-18.0) Final 02/08/2021 12:52:00 HCT 40.6 % Below Low normal (41.0-53.0) F inal 02/08/2021 12:52:00 MCV 85.9 fL Normal (80.0-95.0) Final 02/08/2021 12:52:00 MCH 28.5 pg Normal (27.0-32.0) Final 02/08/2021 12:52:00 MCHC 33.1 g/dL Normal (32.0-36.0) Final 02/08/2021 12:52:00 RDW 14.9 % Above High Normal (10.5-14.5) Final 02/08/2021 12:52:00 PLT 269 10*3/uL Normal (150-450) Final 02/08/2021 12:52:00 MPV 7.2 fL Normal (7.1-10.7) Final 02/08/2021 12:52:00 NEUT % 70.1 % Normal (35.0-75.0) Final 02/08/2021 12:52:00 LYMPH % 17.3 % Normal (16.0-52.0) Final 02/08/2021 12:52:00 MONO % 8.1 % Above High Normal (0.0-8.0) Fi nal 02/08/2021 12:52:00 EOS % 4.2 % Normal (0.0-5.0) Final 02/08/2021 12:52:00 BASO % 0.3 % Normal (0.0-4.0) Final 02/08/2021 12:52:00 NEUT # 7.0 10*3/uL Normal (1.8-7.7) Final 02/08/2021 12:52:00 LYMPH # 1.7 10*3/uL Normal (1.2-4.8) Final 02/08/2021 12:52:00 MONO # 0.8 10*3/uL Normal (0.0-0.8) Final 02/08/2021 12:52:00 EOS # 0.4 10*3/uL Normal (0.0-0.5) Final 02/08/2021 12:52:00 BASO # 0.0 10*3/uL Normal (0.0-0.2) Final 02/08/2021 12:52:00 SODIUM 142 mmol/L Normal (136-145) Final 02/08/2021 12:52:00 POTASSIUM 3.7 mmol/L Normal (3.6-5.2) Final 02/08/2021 12:52:00 CHLORIDE 105 mmol/L Normal (100-108) Final 02/08/2021 12:52:00 CO2 28 mmol/L Normal (22-31) Final 02/08/2021 12:52:00 ANION GAP 9 mmol/L Normal (7-16) Final 02/08/2021 12:52:00 UREA NITROGEN 17 mg/dL Normal (7-24) Final 02/08/2021 12:52:00 CREATININE 0.79 mg/dL Below Low normal (0.80-1.30) Final 02/08/2021 12:52:00 BUN/CREAT RATIO 21.5 RATIO Above High Normal (10. 0-20.0) Final 02/08/2021 12:52:00 GLUCOSE 60 mg/dL Below Low normal (70-99) Omid al 02/08/2021 12:52:00 CALCIUM 8.7 mg/dL Normal (8.4-10.2) Final 02/08/2021 12:52:00 TOTAL PROTEIN 6.6 g/dL Normal (6.4-8.2) Final 02/08/2021 12:52:00 ALBUMIN 2.8 g/dL Below Low normal (3.5-4.6) Omid al 02/08/2021 12:52:00 GLOBULIN 3.8 g/dL Normal (2.7-4.3) Final 02/08/2021 12:52:00 ALB/GLOB RATIO 0.7 RATIO Normal Final 02/08/2021 12:52:00 ALKALINE PHOSPHATASE 91 U/L Normal (45-117) Final 02/08/2021 12:52:00 BILIRUBIN,TOTAL 0.3 mg/dL Normal (0.0-1.0) Yvonne grvaes 02/08/2021 12:52:00 AST (SGOT) 26 U/L Normal (11-39) Final 02/08/2021 12:52:00 ALT (SGPT) 44 U/L Normal (12-78) Final 02/08/2021 12:52:00 GFR >60 ml/min/1.73m2 Normal (>59) Fi nal 02/08/2021 12:52:00 GFR ( AMER) >60 ml/min/1.73m2 Normal (>5 9) Final 02/08/2021 12:52:00 GFR INTERPRETATION . Normal F inal 04/16/2021 10:40:00 CBCDIFF / BASIC METABOLIC Completed 04/16/2021 12:05:00 WBC 9.4 10*3/uL Normal (4.1-11.0) Final 04/16/2021 12:05:00 RBC 5.18 10*6/uL Normal (4.60-6.10) Final 04/16/2021 12:05:00 HGB 14.7 g/dL Normal (13.5-18.0) Final 04/16/2021 12:05:00 HCT 44.5 % Normal (41.0-53.0) Final 04/16/2021 12:05:00 MCV 85.9 fL Normal (80.0-95.0) Final 04/16/2021 12:05:00 MCH 28.4 pg Normal (27.0-32.0) Final 04/16/2021 12:05:00 MCHC 33.1 g/dL Normal (32.0-36.0) Final 04/16/2021 12:05:00 RDW 15.5 % Above High Normal (10.5-14.5) Final 04/16/2021 12:05:00 PLT 205 10*3/uL Normal (150-450) Final 04/16/2021 12:05:00 MPV 7.6 fL Normal (7.1-10.7) Final 04/16/2021 12:05:00 NEUT % 70.5 % Normal (35.0-75.0) Final 04/16/2021 12:05:00 LYMPH % 18.5 % Normal (16.0-52.0) Final 04/16/2021 12:05:00 MONO % 7.0 % Normal (0.0-8.0) Final 04/16/2021 12:05:00 EOS % 3.7 % Normal (0.0-5.0) Final 04/16/2021 12:05:00 BASO % 0.3 % Normal (0.0-4.0) Final 04/16/2021 12:05:00 NEUT # 6.6 10*3/uL Normal (1.8-7.7) Final 04/16/2021 12:05:00 LYMPH # 1.7 10*3/uL Normal (1.2-4.8) Final 04/16/2021 12:05:00 MONO # 0.7 10*3/uL Normal (0.0-0.8) Final 04/16/2021 12:05:00 EOS # 0.3 10*3/uL Normal (0.0-0.5) Final 04/16/2021 12:05:00 BASO # 0.0 10*3/uL Normal (0.0-0.2) Final 04/16/2021 12:05:00 SODIUM 140 mmol/L Normal (136-145) Final 04/16/2021 12:05:00 POTASSIUM 3.9 mmol/L Normal (3.6-5.2) Final 04/16/2021 12:05:00 CHLORIDE 107 mmol/L Normal (100-108) Final 04/16/2021 12:05:00 CO2 27 mmol/L Normal (22-31) Final 04/16/2021 12:05:00 ANION GAP 6 mmol/L Below Low normal (7-16) Fin al 04/16/2021 12:05:00 UREA NITROGEN 9 mg/dL Normal (7-24) Final 04/16/2021 12:05:00 CREATININE 0.81 mg/dL Normal (0.80-1.30) Final 04/16/2021 12:05:00 BUN/CREAT RATIO 11.1 RATIO Normal (10.0-20.0) F inal 04/16/2021 12:05:00 GLUCOSE 79 mg/dL Normal (70-99) Final 04/16/2021 12:05:00 CALCIUM 8.6 mg/dL Normal (8.4-10.2) Final 04/16/2021 12:05:00 GFR >60 ml/min/1.73m2 Normal (>59) Fi nal 04/16/2021 12:05:00 GFR ( AMER) >60 ml/min/1.73m2 Normal (>5 9) Final 04/16/2021 12:05:00 GFR INTERPRETATION . Normal F inal 03/08/2021 9:40:00 CBCDIFF / BASIC METABOLIC Completed 03/08/2021 10:35:00 WBC 9.7 10*3/uL Normal (4.1-11.0) Final 03/08/2021 10:35:00 RBC 5.12 10*6/uL Normal (4.60-6.10) Final 03/08/2021 10:35:00 HGB 14.7 g/dL Normal (13.5-18.0) Final 03/08/2021 10:35:00 HCT 44.1 % Normal (41.0-53.0) Final 03/08/2021 10:35:00 MCV 86.0 fL Normal (80.0-95.0) Final 03/08/2021 10:35:00 MCH 28.6 pg Normal (27.0-32.0) Final 03/08/2021 10:35:00 MCHC 33.3 g/dL Normal (32.0-36.0) Final 03/08/2021 10:35:00 RDW 15.1 % Above High Normal (10.5-14.5) Final 03/08/2021 10:35:00 PLT 198 10*3/uL Normal (150-450) Final 03/08/2021 10:35:00 MPV 7.7 fL Normal (7.1-10.7) Final 03/08/2021 10:35:00 NEUT % 66.0 % Normal (35.0-75.0) Final 03/08/2021 10:35:00 LYMPH % 20.5 % Normal (16.0-52.0) Final 03/08/2021 10:35:00 MONO % 8.3 % Above High Normal (0.0-8.0) Fi nal 03/08/2021 10:35:00 EOS % 5.0 % Normal (0.0-5.0) Final 03/08/2021 10:35:00 BASO % 0.2 % Normal (0.0-4.0) Final 03/08/2021 10:35:00 NEUT # 6.4 10*3/uL Normal (1.8-7.7) Final 03/08/2021 10:35:00 LYMPH # 2.0 10*3/uL Normal (1.2-4.8) Final 03/08/2021 10:35:00 MONO # 0.8 10*3/uL Normal (0.0-0.8) Final 03/08/2021 10:35:00 EOS # 0.5 10*3/uL Normal (0.0-0.5) Final 03/08/2021 10:35:00 BASO # 0.0 10*3/uL Normal (0.0-0.2) Final 03/08/2021 10:35:00 SODIUM 140 mmol/L Normal (136-145) Final 03/08/2021 10:35:00 POTASSIUM 3.6 mmol/L Normal (3.6-5.2) Final 03/08/2021 10:35:00 CHLORIDE 108 mmol/L Normal (100-108) Final 03/08/2021 10:35:00 CO2 25 mmol/L Normal (22-31) Final 03/08/2021 10:35:00 ANION GAP 7 mmol/L Normal (7-16) Final 03/08/2021 10:35:00 UREA NITROGEN 12 mg/dL Normal (7-24) Final 03/08/2021 10:35:00 CREATININE 0.86 mg/dL Normal (0.80-1.30) Final 03/08/2021 10:35:00 BUN/CREAT RATIO 14.0 RATIO Normal (10.0-20.0) F inal 03/08/2021 10:35:00 GLUCOSE 76 mg/dL Normal (70-99) Final 03/08/2021 10:35:00 CALCIUM 8.4 mg/dL Normal (8.4-10.2) Final 03/08/2021 10:35:00 GFR >60 ml/min/1.73m2 Normal (>59) Fi nal 03/08/2021 10:35:00 GFR ( AMER) >60 ml/min/1.73m2 Normal (>5 9) Final 03/08/2021 10:35:00 GFR INTERPRETATION . Normal F inal 03/15/2021 11:50:00 BASIC METABOLIC / CBCDIFF Completed 03/15/2021 12:48:00 SODIUM 141 mmol/L Normal (136-145) Final 03/15/2021 12:48:00 POTASSIUM 4.2 mmol/L Normal (3.6-5.2) Final 03/15/2021 12:48:00 CHLORIDE 106 mmol/L Normal (100-108) Final 03/15/2021 12:48:00 CO2 26 mmol/L Normal (22-31) Final 03/15/2021 12:48:00 ANION GAP 9 mmol/L Normal (7-16) Final 03/15/2021 12:48:00 UREA NITROGEN 11 mg/dL Normal (7-24) Final 03/15/2021 12:48:00 CREATININE 0.84 mg/dL Normal (0.80-1.30) Final 03/15/2021 12:48:00 BUN/CREAT RATIO 13.1 RATIO Normal (10.0-20.0) F inal 03/15/2021 12:48:00 GLUCOSE 67 mg/dL Below Low normal (70-99) Fin al 03/15/2021 12:48:00 CALCIUM 8.4 mg/dL Normal (8.4-10.2) Final 03/15/2021 12:48:00 GFR >60 ml/min/1.73m2 Normal (>59) Fi nal 03/15/2021 12:48:00 GFR ( AMER) >60 ml/min/1.73m2 Normal (>5 9) Final 03/15/2021 12:48:00 GFR INTERPRETATION . Normal F inal 03/15/2021 12:48:00 WBC 9.2 10*3/uL Normal (4.1-11.0) Final 03/15/2021 12:48:00 RBC 5.39 10*6/uL Normal (4.60-6.10) Final 03/15/2021 12:48:00 HGB 15.3 g/dL Normal (13.5-18.0) Final 03/15/2021 12:48:00 HCT 46.2 % Normal (41.0-53.0) Final 03/15/2021 12:48:00 MCV 85.8 fL Normal (80.0-95.0) Final 03/15/2021 12:48:00 MCH 28.5 pg Normal (27.0-32.0) Final 03/15/2021 12:48:00 MCHC 33.2 g/dL Normal (32.0-36.0) Final 03/15/2021 12:48:00 RDW 15.6 % Above High Normal (10.5-14.5) Final 03/15/2021 12:48:00 PLT 227 10*3/uL Normal (150-450) Final 03/15/2021 12:48:00 MPV 7.6 fL Normal (7.1-10.7) Final 03/15/2021 12:48:00 NEUT % 69.2 % Normal (35.0-75.0) Final 03/15/2021 12:48:00 LYMPH % 20.0 % Normal (16.0-52.0) Final 03/15/2021 12:48:00 MONO % 6.7 % Normal (0.0-8.0) Final 03/15/2021 12:48:00 EOS % 3.8 % Normal (0.0-5.0) Final 03/15/2021 12:48:00 BASO % 0.3 % Normal (0.0-4.0) Final 03/15/2021 12:48:00 NEUT # 6.4 10*3/uL Normal (1.8-7.7) Final 03/15/2021 12:48:00 LYMPH # 1.9 10*3/uL Normal (1.2-4.8) Final 03/15/2021 12:48:00 MONO # 0.6 10*3/uL Normal (0.0-0.8) Final 03/15/2021 12:48:00 EOS # 0.4 10*3/uL Normal (0.0-0.5) Final 03/15/2021 12:48:00 BASO # 0.0 10*3/uL Normal (0.0-0.2) Final 04/09/2021 11:18:00 CBCDIFF / BASIC METABOLIC Completed 04/09/2021 12:09:00 WBC 10.1 10*3/uL Normal (4.1-11.0) Final 04/09/2021 12:09:00 RBC 5.26 10*6/uL Normal (4.60-6.10) Final 04/09/2021 12:09:00 HGB 15.0 g/dL Normal (13.5-18.0) Final 04/09/2021 12:09:00 HCT 45.5 % Normal (41.0-53.0) Final 04/09/2021 12:09:00 MCV 86.6 fL Normal (80.0-95.0) Final 04/09/2021 12:09:00 MCH 28.6 pg Normal (27.0-32.0) Final 04/09/2021 12:09:00 MCHC 33.1 g/dL Normal (32.0-36.0) Final 04/09/2021 12:09:00 RDW 15.4 % Above High Normal (10.5-14.5) Final 04/09/2021 12:09:00 PLT 220 10*3/uL Normal (150-450) Final 04/09/2021 12:09:00 MPV 7.8 fL Normal (7.1-10.7) Final 04/09/2021 12:09:00 NEUT % 72.3 % Normal (35.0-75.0) Final 04/09/2021 12:09:00 LYMPH % 17.7 % Normal (16.0-52.0) Final 04/09/2021 12:09:00 MONO % 6.3 % Normal (0.0-8.0) Final 04/09/2021 12:09:00 EOS % 3.4 % Normal (0.0-5.0) Final 04/09/2021 12:09:00 BASO % 0.3 % Normal (0.0-4.0) Final 04/09/2021 12:09:00 NEUT # 7.3 10*3/uL Normal (1.8-7.7) Final 04/09/2021 12:09:00 LYMPH # 1.8 10*3/uL Normal (1.2-4.8) Final 04/09/2021 12:09:00 MONO # 0.6 10*3/uL Normal (0.0-0.8) Final 04/09/2021 12:09:00 EOS # 0.3 10*3/uL Normal (0.0-0.5) Final 04/09/2021 12:09:00 BASO # 0.0 10*3/uL Normal (0.0-0.2) Final 04/09/2021 12:09:00 SODIUM 140 mmol/L Normal (136-145) Final 04/09/2021 12:09:00 POTASSIUM 3.9 mmol/L Normal (3.6-5.2) Final 04/09/2021 12:09:00 CHLORIDE 109 mmol/L Above High Normal (100-108) F inal 04/09/2021 12:09:00 CO2 24 mmol/L Normal (22-31) Final 04/09/2021 12:09:00 ANION GAP 7 mmol/L Normal (7-16) Final 04/09/2021 12:09:00 UREA NITROGEN 10 mg/dL Normal (7-24) Final 04/09/2021 12:09:00 CREATININE 0.83 mg/dL Normal (0.80-1.30) Final 04/09/2021 12:09:00 BUN/CREAT RATIO 12.0 RATIO Normal (10.0-20.0) F inal 04/09/2021 12:09:00 GLUCOSE 88 mg/dL Normal (70-99) Final 04/09/2021 12:09:00 CALCIUM 8.5 mg/dL Normal (8.4-10.2) Final 04/09/2021 12:09:00 GFR >60 ml/min/1.73m2 Normal (>59) Fi nal 04/09/2021 12:09:00 GFR ( AMER) >60 ml/min/1.73m2 Normal (>5 9) Final 04/09/2021 12:09:00 GFR INTERPRETATION . Normal F inal 03/06/2021 12:11:00 CBCDIFF / BASIC METABOLIC / KEPPRA / TOPIRAMATE Completed 03/07/2021 19:10:00 KEPPRA @ 9 ug/mL Normal (5-30) Final 03/07/2021 19:10:00 TOPIRAMATE 9.8 ug/mL Normal Final 03/07/2021 19:10:00 WBC 9.1 10*3/uL Normal (4.1-11.0) Final 03/07/2021 19:10:00 RBC 5.22 10*6/uL Normal (4.60-6.10) Final 03/07/2021 19:10:00 HGB 14.7 g/dL Normal (13.5-18.0) Final 03/07/2021 19:10:00 HCT 45.0 % Normal (41.0-53.0) Final 03/07/2021 19:10:00 MCV 86.2 fL Normal (80.0-95.0) Final 03/07/2021 19:10:00 MCH 28.2 pg Normal (27.0-32.0) Final 03/07/2021 19:10:00 MCHC 32.8 g/dL Normal (32.0-36.0) Final 03/07/2021 19:10:00 RDW 15.8 % Above High Normal (10.5-14.5) Final 03/07/2021 19:10:00 PLT 197 10*3/uL Normal (150-450) Final 03/07/2021 19:10:00 MPV 8.0 fL Normal (7.1-10.7) Final 03/07/2021 19:10:00 NEUT % 60.7 % Normal (35.0-75.0) Final 03/07/2021 19:10:00 LYMPH % 25.0 % Normal (16.0-52.0) Final 03/07/2021 19:10:00 MONO % 9.4 % Above High Normal (0.0-8.0) Fi nal 03/07/2021 19:10:00 EOS % 4.5 % Normal (0.0-5.0) Final 03/07/2021 19:10:00 BASO % 0.4 % Normal (0.0-4.0) Final 03/07/2021 19:10:00 NEUT # 5.5 10*3/uL Normal (1.8-7.7) Final 03/07/2021 19:10:00 LYMPH # 2.3 10*3/uL Normal (1.2-4.8) Final 03/07/2021 19:10:00 MONO # 0.9 10*3/uL Above High Normal (0.0-0.8) Final 03/07/2021 19:10:00 EOS # 0.4 10*3/uL Normal (0.0-0.5) Final 03/07/2021 19:10:00 BASO # 0.0 10*3/uL Normal (0.0-0.2) Final 03/07/2021 19:10:00 SODIUM 144 mmol/L Normal (136-145) Final 03/07/2021 19:10:00 POTASSIUM 3.5 mmol/L Below Low normal (3.6-5.2) Fi nal 03/07/2021 19:10:00 CHLORIDE 107 mmol/L Normal (100-108) Final 03/07/2021 19:10:00 CO2 25 mmol/L Normal (22-31) Final 03/07/2021 19:10:00 ANION GAP 12 mmol/L Normal (7-16) Final 03/07/2021 19:10:00 UREA NITROGEN 11 mg/dL Normal (7-24) Final 03/07/2021 19:10:00 CREATININE 0.93 mg/dL Normal (0.80-1.30) Final 03/07/2021 19:10:00 BUN/CREAT RATIO 11.8 RATIO Normal (10.0-20.0) F inal 03/07/2021 19:10:00 GLUCOSE 56 mg/dL Below Low normal (70-99) Fin al 03/07/2021 19:10:00 CALCIUM 8.6 mg/dL Normal (8.4-10.2) Final 03/07/2021 19:10:00 GFR >60 ml/min/1.73m2 Normal (>59) Fi nal 03/07/2021 19:10:00 GFR ( AMER) >60 ml/min/1.73m2 Normal (>5 9) Final 03/07/2021 19:10:00 GFR INTERPRETATION . Normal F inal 04/03/2021 9:38:00 CBCDIFF / BASIC METABOLIC / KEPPRA / TOPIRAMATE Completed 04/05/2021 0:03:00 KEPPRA @ 11 ug/mL Normal (5-30) Final 04/05/2021 0:03:00 TOPIRAMATE 8.8 ug/mL Normal Final 04/05/2021 0:03:00 WBC 10.4 10*3/uL Normal (4.1-11.0) Final 04/05/2021 0:03:00 RBC 5.47 10*6/uL Normal (4.60-6.10) Final 04/05/2021 0:03:00 HGB 15.6 g/dL Normal (13.5-18.0) Final 04/05/2021 0:03:00 HCT 46.7 % Normal (41.0-53.0) Final 04/05/2021 0:03:00 MCV 85.5 fL Normal (80.0-95.0) Final 04/05/2021 0:03:00 MCH 28.5 pg Normal (27.0-32.0) Final 04/05/2021 0:03:00 MCHC 33.4 g/dL Normal (32.0-36.0) Final 04/05/2021 0:03:00 RDW 15.4 % Above High Normal (10.5-14.5) F inal 04/05/2021 0:03:00 PLT 184 10*3/uL Normal (150-450) Final 04/05/2021 0:03:00 MPV 7.7 fL Normal (7.1-10.7) Final 04/05/2021 0:03:00 NEUT % 75.4 % Above High Normal (35.0-75.0) F inal 04/05/2021 0:03:00 LYMPH % 14.8 % Below Low normal (16.0-52.0) Fi nal 04/05/2021 0:03:00 MONO % 6.6 % Normal (0.0-8.0) Final 04/05/2021 0:03:00 EOS % 3.0 % Normal (0.0-5.0) Final 04/05/2021 0:03:00 BASO % 0.2 % Normal (0.0-4.0) Final 04/05/2021 0:03:00 NEUT # 7.9 10*3/uL Above High Normal (1.8-7.7) F inal 04/05/2021 0:03:00 LYMPH # 1.5 10*3/uL Normal (1.2-4.8) Final 04/05/2021 0:03:00 MONO # 0.7 10*3/uL Normal (0.0-0.8) Final 04/05/2021 0:03:00 EOS # 0.3 10*3/uL Normal (0.0-0.5) Final 04/05/2021 0:03:00 BASO # 0.0 10*3/uL Normal (0.0-0.2) Final 04/05/2021 0:03:00 SODIUM 142 mmol/L Normal (136-145) Final 04/05/2021 0:03:00 POTASSIUM 4.2 mmol/L Normal (3.6-5.2) Final 04/05/2021 0:03:00 CHLORIDE 109 mmol/L Above High Normal (100-108) Fi nal 04/05/2021 0:03:00 CO2 23 mmol/L Normal (22-31) Final 04/05/2021 0:03:00 ANION GAP 10 mmol/L Normal (7-16) Final 04/05/2021 0:03:00 UREA NITROGEN 12 mg/dL Normal (7-24) Final 04/05/2021 0:03:00 CREATININE 0.79 mg/dL Below Low normal (0.80-1.30) Final 04/05/2021 0:03:00 BUN/CREAT RATIO 15.2 RATIO Normal (10.0-20.0) Fi nal 04/05/2021 0:03:00 GLUCOSE 79 mg/dL Normal (70-99) Final 04/05/2021 0:03:00 CALCIUM 8.6 mg/dL Normal (8.4-10.2) Final 04/05/2021 0:03:00 GFR >60 ml/min/1.73m2 Normal (>59) Fin al 04/05/2021 0:03:00 GFR ( AMER) >60 ml/min/1.73m2 Normal (>59 ) Final 04/05/2021 0:03:00 GFR INTERPRETATION . Normal Fi nal 03/26/2021 11:08:00 CBCDIFF / BASIC METABOLIC Completed 03/26/2021 14:43:00 WBC 10.0 10*3/uL Normal (4.1-11.0) Final 03/26/2021 14:43:00 RBC 5.37 10*6/uL Normal (4.60-6.10) Final 03/26/2021 14:43:00 HGB 15.1 g/dL Normal (13.5-18.0) Final 03/26/2021 14:43:00 HCT 45.9 % Normal (41.0-53.0) Final 03/26/2021 14:43:00 MCV 85.5 fL Normal (80.0-95.0) Final 03/26/2021 14:43:00 MCH 28.2 pg Normal (27.0-32.0) Final 03/26/2021 14:43:00 MCHC 33.0 g/dL Normal (32.0-36.0) Final 03/26/2021 14:43:00 RDW 15.4 % Above High Normal (10.5-14.5) Final 03/26/2021 14:43:00 PLT 202 10*3/uL Normal (150-450) Final 03/26/2021 14:43:00 MPV 7.8 fL Normal (7.1-10.7) Final 03/26/2021 14:43:00 NEUT % 69.9 % Normal (35.0-75.0) Final 03/26/2021 14:43:00 LYMPH % 19.2 % Normal (16.0-52.0) Final 03/26/2021 14:43:00 MONO % 7.3 % Normal (0.0-8.0) Final 03/26/2021 14:43:00 EOS % 3.3 % Normal (0.0-5.0) Final 03/26/2021 14:43:00 BASO % 0.3 % Normal (0.0-4.0) Final 03/26/2021 14:43:00 NEUT # 7.0 10*3/uL Normal (1.8-7.7) Final 03/26/2021 14:43:00 LYMPH # 1.9 10*3/uL Normal (1.2-4.8) Final 03/26/2021 14:43:00 MONO # 0.7 10*3/uL Normal (0.0-0.8) Final 03/26/2021 14:43:00 EOS # 0.3 10*3/uL Normal (0.0-0.5) Final 03/26/2021 14:43:00 BASO # 0.0 10*3/uL Normal (0.0-0.2) Final 03/26/2021 14:43:00 SODIUM 142 mmol/L Normal (136-145) Final 03/26/2021 14:43:00 POTASSIUM 4.1 mmol/L Normal (3.6-5.2) Final 03/26/2021 14:43:00 CHLORIDE 109 mmol/L Above High Normal (100-108) F inal 03/26/2021 14:43:00 CO2 21 mmol/L Below Low normal (22-31) Fin al 03/26/2021 14:43:00 ANION GAP 12 mmol/L Normal (7-16) Final 03/26/2021 14:43:00 UREA NITROGEN 11 mg/dL Normal (7-24) Final 03/26/2021 14:43:00 CREATININE 0.92 mg/dL Normal (0.80-1.30) Final 03/26/2021 14:43:00 BUN/CREAT RATIO 12.0 RATIO Normal (10.0-20.0) F inal 03/26/2021 14:43:00 GLUCOSE 66 mg/dL Below Low normal (70-99) Fin al 03/26/2021 14:43:00 CALCIUM 8.9 mg/dL Normal (8.4-10.2) Final 03/26/2021 14:43:00 GFR >60 ml/min/1.73m2 Normal (>59) Fi nal 03/26/2021 14:43:00 GFR ( AMER) >60 ml/min/1.73m2 Normal (>5 9) Final 03/26/2021 14:43:00 GFR INTERPRETATION . Normal F inal 03/22/2021 9:24:00 CBCDIFF / BASIC METABOLIC Completed 03/22/2021 10:14:00 WBC 9.3 10*3/uL Normal (4.1-11.0) Final 03/22/2021 10:14:00 RBC 5.41 10*6/uL Normal (4.60-6.10) Final 03/22/2021 10:14:00 HGB 15.2 g/dL Normal (13.5-18.0) Final 03/22/2021 10:14:00 HCT 46.2 % Normal (41.0-53.0) Final 03/22/2021 10:14:00 MCV 85.5 fL Normal (80.0-95.0) Final 03/22/2021 10:14:00 MCH 28.0 pg Normal (27.0-32.0) Final 03/22/2021 10:14:00 MCHC 32.8 g/dL Normal (32.0-36.0) Final 03/22/2021 10:14:00 RDW 15.5 % Above High Normal (10.5-14.5) Final 03/22/2021 10:14:00 PLT 221 10*3/uL Normal (150-450) Final 03/22/2021 10:14:00 MPV 7.6 fL Normal (7.1-10.7) Final 03/22/2021 10:14:00 NEUT % 71.0 % Normal (35.0-75.0) Final 03/22/2021 10:14:00 LYMPH % 18.9 % Normal (16.0-52.0) Final 03/22/2021 10:14:00 MONO % 6.6 % Normal (0.0-8.0) Final 03/22/2021 10:14:00 EOS % 3.3 % Normal (0.0-5.0) Final 03/22/2021 10:14:00 BASO % 0.2 % Normal (0.0-4.0) Final 03/22/2021 10:14:00 NEUT # 6.6 10*3/uL Normal (1.8-7.7) Final 03/22/2021 10:14:00 LYMPH # 1.8 10*3/uL Normal (1.2-4.8) Final 03/22/2021 10:14:00 MONO # 0.6 10*3/uL Normal (0.0-0.8) Final 03/22/2021 10:14:00 EOS # 0.3 10*3/uL Normal (0.0-0.5) Final 03/22/2021 10:14:00 BASO # 0.0 10*3/uL Normal (0.0-0.2) Final 03/22/2021 10:14:00 SODIUM 141 mmol/L Normal (136-145) Final 03/22/2021 10:14:00 POTASSIUM 3.8 mmol/L Normal (3.6-5.2) Final 03/22/2021 10:14:00 CHLORIDE 106 mmol/L Normal (100-108) Final 03/22/2021 10:14:00 CO2 23 mmol/L Normal (22-31) Final 03/22/2021 10:14:00 ANION GAP 12 mmol/L Normal (7-16) Final 03/22/2021 10:14:00 UREA NITROGEN 13 mg/dL Normal (7-24) Final 03/22/2021 10:14:00 CREATININE 0.81 mg/dL Normal (0.80-1.30) Final 03/22/2021 10:14:00 BUN/CREAT RATIO 16.0 RATIO Normal (10.0-20.0) F inal 03/22/2021 10:14:00 GLUCOSE 75 mg/dL Normal (70-99) Final 03/22/2021 10:14:00 CALCIUM 8.2 mg/dL Below Low normal (8.4-10.2) Fi nal 03/22/2021 10:14:00 GFR >60 ml/min/1.73m2 Normal (>59) Fi nal 03/22/2021 10:14:00 GFR ( AMER) >60 ml/min/1.73m2 Normal (>5 9) Final 03/22/2021 10:14:00 GFR INTERPRETATION . Normal F inal 02/22/2021 12:39:00 CBCDIFF / BASIC METABOLIC Completed 02/22/2021 15:19:00 WBC 7.9 10*3/uL Normal (4.1-11.0) Final 02/22/2021 15:19:00 RBC 5.03 10*6/uL Normal (4.60-6.10) Final 02/22/2021 15:19:00 HGB 14.5 g/dL Normal (13.5-18.0) Final 02/22/2021 15:19:00 HCT 42.5 % Normal (41.0-53.0) Final 02/22/2021 15:19:00 MCV 84.5 fL Normal (80.0-95.0) Final 02/22/2021 15:19:00 MCH 28.8 pg Normal (27.0-32.0) Final 02/22/2021 15:19:00 MCHC 34.0 g/dL Normal (32.0-36.0) Final 02/22/2021 15:19:00 RDW 15.2 % Above High Normal (10.5-14.5) Final 02/22/2021 15:19:00 PLT 242 10*3/uL Normal (150-450) Final 02/22/2021 15:19:00 MPV 7.4 fL Normal (7.1-10.7) Final 02/22/2021 15:19:00 NEUT % 66.6 % Normal (35.0-75.0) Final 02/22/2021 15:19:00 LYMPH % 20.7 % Normal (16.0-52.0) Final 02/22/2021 15:19:00 MONO % 7.0 % Normal (0.0-8.0) Final 02/22/2021 15:19:00 EOS % 5.4 % Above High Normal (0.0-5.0) Fi nal 02/22/2021 15:19:00 BASO % 0.3 % Normal (0.0-4.0) Final 02/22/2021 15:19:00 NEUT # 5.3 10*3/uL Normal (1.8-7.7) Final 02/22/2021 15:19:00 LYMPH # 1.6 10*3/uL Normal (1.2-4.8) Final 02/22/2021 15:19:00 MONO # 0.5 10*3/uL Normal (0.0-0.8) Final 02/22/2021 15:19:00 EOS # 0.4 10*3/uL Normal (0.0-0.5) Final 02/22/2021 15:19:00 BASO # 0.0 10*3/uL Normal (0.0-0.2) Final 02/22/2021 15:19:00 SODIUM 141 mmol/L Normal (136-145) Final 02/22/2021 15:19:00 POTASSIUM 3.6 mmol/L Normal (3.6-5.2) Final 02/22/2021 15:19:00 CHLORIDE 106 mmol/L Normal (100-108) Final 02/22/2021 15:19:00 CO2 25 mmol/L Normal (22-31) Final 02/22/2021 15:19:00 ANION GAP 10 mmol/L Normal (7-16) Final 02/22/2021 15:19:00 UREA NITROGEN 10 mg/dL Normal (7-24) Final 02/22/2021 15:19:00 CREATININE 0.92 mg/dL Normal (0.80-1.30) Final 02/22/2021 15:19:00 BUN/CREAT RATIO 10.9 RATIO Normal (10.0-20.0) F inal 02/22/2021 15:19:00 GLUCOSE 91 mg/dL Normal (70-99) Final 02/22/2021 15:19:00 CALCIUM 8.7 mg/dL Normal (8.4-10.2) Final 02/22/2021 15:19:00 GFR >60 ml/min/1.73m2 Normal (>59) Fi nal 02/22/2021 15:19:00 GFR ( AMER) >60 ml/min/1.73m2 Normal (>5 9) Final 02/22/2021 15:19:00 GFR INTERPRETATION . Normal F inal 02/19/2021 12:16:00 CBCDIFF / 25 HYDROXY VIT D / BASIC METABOLIC Completed 02/19/2021 15:28:00 25 HYDROXY VIT D @ 34 ng/mL Normal (31-100) F inal 02/19/2021 15:28:00 WBC 8.1 10*3/uL Normal (4.1-11.0) Final 02/19/2021 15:28:00 RBC 5.17 10*6/uL Normal (4.60-6.10) Final 02/19/2021 15:28:00 HGB 14.8 g/dL Normal (13.5-18.0) Final 02/19/2021 15:28:00 HCT 44.7 % Normal (41.0-53.0) Final 02/19/2021 15:28:00 MCV 86.4 fL Normal (80.0-95.0) Final 02/19/2021 15:28:00 MCH 28.6 pg Normal (27.0-32.0) Final 02/19/2021 15:28:00 MCHC 33.1 g/dL Normal (32.0-36.0) Final 02/19/2021 15:28:00 RDW 14.8 % Above High Normal (10.5-14.5) Final 02/19/2021 15:28:00 PLT 234 10*3/uL Normal (150-450) Final 02/19/2021 15:28:00 MPV 7.6 fL Normal (7.1-10.7) Final 02/19/2021 15:28:00 NEUT % 67.1 % Normal (35.0-75.0) Final 02/19/2021 15:28:00 LYMPH % 22.3 % Normal (16.0-52.0) Final 02/19/2021 15:28:00 MONO % 6.1 % Normal (0.0-8.0) Final 02/19/2021 15:28:00 EOS % 4.1 % Normal (0.0-5.0) Final 02/19/2021 15:28:00 BASO % 0.4 % Normal (0.0-4.0) Final 02/19/2021 15:28:00 NEUT # 5.4 10*3/uL Normal (1.8-7.7) Final 02/19/2021 15:28:00 LYMPH # 1.8 10*3/uL Normal (1.2-4.8) Final 02/19/2021 15:28:00 MONO # 0.5 10*3/uL Normal (0.0-0.8) Final 02/19/2021 15:28:00 EOS # 0.3 10*3/uL Normal (0.0-0.5) Final 02/19/2021 15:28:00 BASO # 0.0 10*3/uL Normal (0.0-0.2) Final 02/19/2021 15:28:00 SODIUM 141 mmol/L Normal (136-145) Final 02/19/2021 15:28:00 POTASSIUM 3.7 mmol/L Normal (3.6-5.2) Final 02/19/2021 15:28:00 CHLORIDE 106 mmol/L Normal (100-108) Final 02/19/2021 15:28:00 CO2 21 mmol/L Below Low normal (22-31) Fin al 02/19/2021 15:28:00 ANION GAP 14 mmol/L Normal (7-16) Final 02/19/2021 15:28:00 UREA NITROGEN 11 mg/dL Normal (7-24) Final 02/19/2021 15:28:00 CREATININE 0.94 mg/dL Normal (0.80-1.30) Final 02/19/2021 15:28:00 BUN/CREAT RATIO 11.7 RATIO Normal (10.0-20.0) F inal 02/19/2021 15:28:00 GLUCOSE 100 mg/dL Above High Normal (70-99) Fi nal 02/19/2021 15:28:00 CALCIUM 8.7 mg/dL Normal (8.4-10.2) Final 02/19/2021 15:28:00 GFR >60 ml/min/1.73m2 Normal (>59) Fi nal 02/19/2021 15:28:00 GFR ( AMER) >60 ml/min/1.73m2 Normal (>5 9) Final 02/19/2021 15:28:00 GFR INTERPRETATION . Normal F inal 03/19/2021 9:37:00 CBCDIFF / KEPPRA / BASIC METABOLIC / TOPIRAMATE Completed 03/20/2021 22:03:00 KEPPRA @ 9 ug/mL Normal (5-30) Final 03/20/2021 22:03:00 TOPIRAMATE 9.8 ug/mL Normal Final 03/20/2021 22:03:00 WBC 9.5 10*3/uL Normal (4.1-11.0) Final 03/20/2021 22:03:00 RBC 5.23 10*6/uL Normal (4.60-6.10) Final 03/20/2021 22:03:00 HGB 14.7 g/dL Normal (13.5-18.0) Final 03/20/2021 22:03:00 HCT 44.4 % Normal (41.0-53.0) Final 03/20/2021 22:03:00 MCV 84.9 fL Normal (80.0-95.0) Final 03/20/2021 22:03:00 MCH 28.2 pg Normal (27.0-32.0) Final 03/20/2021 22:03:00 MCHC 33.2 g/dL Normal (32.0-36.0) Final 03/20/2021 22:03:00 RDW 15.2 % Above High Normal (10.5-14.5) Final 03/20/2021 22:03:00 PLT 211 10*3/uL Normal (150-450) Final 03/20/2021 22:03:00 MPV 7.7 fL Normal (7.1-10.7) Final 03/20/2021 22:03:00 NEUT % 67.6 % Normal (35.0-75.0) Final 03/20/2021 22:03:00 LYMPH % 21.1 % Normal (16.0-52.0) Final 03/20/2021 22:03:00 MONO % 6.7 % Normal (0.0-8.0) Final 03/20/2021 22:03:00 EOS % 4.3 % Normal (0.0-5.0) Final 03/20/2021 22:03:00 BASO % 0.3 % Normal (0.0-4.0) Final 03/20/2021 22:03:00 NEUT # 6.4 10*3/uL Normal (1.8-7.7) Final 03/20/2021 22:03:00 LYMPH # 2.0 10*3/uL Normal (1.2-4.8) Final 03/20/2021 22:03:00 MONO # 0.6 10*3/uL Normal (0.0-0.8) Final 03/20/2021 22:03:00 EOS # 0.4 10*3/uL Normal (0.0-0.5) Final 03/20/2021 22:03:00 BASO # 0.0 10*3/uL Normal (0.0-0.2) Final 03/20/2021 22:03:00 SODIUM 140 mmol/L Normal (136-145) Final 03/20/2021 22:03:00 POTASSIUM 3.9 mmol/L Normal (3.6-5.2) Final 03/20/2021 22:03:00 CHLORIDE 105 mmol/L Normal (100-108) Final 03/20/2021 22:03:00 CO2 23 mmol/L Normal (22-31) Final 03/20/2021 22:03:00 ANION GAP 12 mmol/L Normal (7-16) Final 03/20/2021 22:03:00 UREA NITROGEN 12 mg/dL Normal (7-24) Final 03/20/2021 22:03:00 CREATININE 0.87 mg/dL Normal (0.80-1.30) Final 03/20/2021 22:03:00 BUN/CREAT RATIO 13.8 RATIO Normal (10.0-20.0) F inal 03/20/2021 22:03:00 GLUCOSE 60 mg/dL Below Low normal (70-99) Fin al 03/20/2021 22:03:00 CALCIUM 8.2 mg/dL Below Low normal (8.4-10.2) Fi nal 03/20/2021 22:03:00 GFR >60 ml/min/1.73m2 Normal (>59) Fi nal 03/20/2021 22:03:00 GFR ( AMER) >60 ml/min/1.73m2 Normal (>5 9) Final 03/20/2021 22:03:00 GFR INTERPRETATION . Normal F inal 02/26/2021 9:25:00 CBCDIFF / BASIC METABOLIC / TOPIRAMATE Completed 02/27/2021 23:23:00 TOPIRAMATE 10.1 ug/mL Normal Final 02/27/2021 23:23:00 WBC 9.3 10*3/uL Normal (4.1-11.0) Final 02/27/2021 23:23:00 RBC 5.21 10*6/uL Normal (4.60-6.10) Final 02/27/2021 23:23:00 HGB 15.1 g/dL Normal (13.5-18.0) Final 02/27/2021 23:23:00 HCT 44.8 % Normal (41.0-53.0) Final 02/27/2021 23:23:00 MCV 85.9 fL Normal (80.0-95.0) Final 02/27/2021 23:23:00 MCH 29.0 pg Normal (27.0-32.0) Final 02/27/2021 23:23:00 MCHC 33.7 g/dL Normal (32.0-36.0) Final 02/27/2021 23:23:00 RDW 15.7 % Above High Normal (10.5-14.5) Final 02/27/2021 23:23:00 PLT 216 10*3/uL Normal (150-450) Final 02/27/2021 23:23:00 MPV 7.3 fL Normal (7.1-10.7) Final 02/27/2021 23:23:00 NEUT % 68.5 % Normal (35.0-75.0) Final 02/27/2021 23:23:00 LYMPH % 20.0 % Normal (16.0-52.0) Final 02/27/2021 23:23:00 MONO % 7.0 % Normal (0.0-8.0) Final 02/27/2021 23:23:00 EOS % 4.3 % Normal (0.0-5.0) Final 02/27/2021 23:23:00 BASO % 0.2 % Normal (0.0-4.0) Final 02/27/2021 23:23:00 NEUT # 6.4 10*3/uL Normal (1.8-7.7) Final 02/27/2021 23:23:00 LYMPH # 1.9 10*3/uL Normal (1.2-4.8) Final 02/27/2021 23:23:00 MONO # 0.7 10*3/uL Normal (0.0-0.8) Final 02/27/2021 23:23:00 EOS # 0.4 10*3/uL Normal (0.0-0.5) Final 02/27/2021 23:23:00 BASO # 0.0 10*3/uL Normal (0.0-0.2) Final 02/27/2021 23:23:00 SODIUM 141 mmol/L Normal (136-145) Final 02/27/2021 23:23:00 POTASSIUM 3.7 mmol/L Normal (3.6-5.2) Final 02/27/2021 23:23:00 CHLORIDE 107 mmol/L Normal (100-108) Final 02/27/2021 23:23:00 CO2 27 mmol/L Normal (22-31) Final 02/27/2021 23:23:00 ANION GAP 7 mmol/L Normal (7-16) Final 02/27/2021 23:23:00 UREA NITROGEN 12 mg/dL Normal (7-24) Final 02/27/2021 23:23:00 CREATININE 0.87 mg/dL Normal (0.80-1.30) Final 02/27/2021 23:23:00 BUN/CREAT RATIO 13.8 RATIO Normal (10.0-20.0) F inal 02/27/2021 23:23:00 GLUCOSE 71 mg/dL Normal (70-99) Final 02/27/2021 23:23:00 CALCIUM 8.7 mg/dL Normal (8.4-10.2) Final 02/27/2021 23:23:00 GFR >60 ml/min/1.73m2 Normal (>59) Fi nal 02/27/2021 23:23:00 GFR ( AMER) >60 ml/min/1.73m2 Normal (>5 9) Final 02/27/2021 23:23:00 GFR INTERPRETATION . Normal F inal 04/12/2021 12:09:00 CBCDIFF / BASIC METABOLIC Completed 04/12/2021 13:25:00 WBC 8.6 10*3/uL Normal (4.1-11.0) Final 04/12/2021 13:25:00 RBC 5.27 10*6/uL Normal (4.60-6.10) Final 04/12/2021 13:25:00 HGB 14.9 g/dL Normal (13.5-18.0) Final 04/12/2021 13:25:00 HCT 45.2 % Normal (41.0-53.0) Final 04/12/2021 13:25:00 MCV 85.8 fL Normal (80.0-95.0) Final 04/12/2021 13:25:00 MCH 28.3 pg Normal (27.0-32.0) Final 04/12/2021 13:25:00 MCHC 33.0 g/dL Normal (32.0-36.0) Final 04/12/2021 13:25:00 RDW 15.3 % Above High Normal (10.5-14.5) Final 04/12/2021 13:25:00 PLT 201 10*3/uL Normal (150-450) Final 04/12/2021 13:25:00 MPV 7.8 fL Normal (7.1-10.7) Final 04/12/2021 13:25:00 NEUT % 75.4 % Above High Normal (35.0-75.0) Final 04/12/2021 13:25:00 LYMPH % 17.4 % Normal (16.0-52.0) Final 04/12/2021 13:25:00 MONO % 3.9 % Normal (0.0-8.0) Final 04/12/2021 13:25:00 EOS % 3.1 % Normal (0.0-5.0) Final 04/12/2021 13:25:00 BASO % 0.2 % Normal (0.0-4.0) Final 04/12/2021 13:25:00 NEUT # 6.5 10*3/uL Normal (1.8-7.7) Final 04/12/2021 13:25:00 LYMPH # 1.5 10*3/uL Normal (1.2-4.8) Final 04/12/2021 13:25:00 MONO # 0.3 10*3/uL Normal (0.0-0.8) Final 04/12/2021 13:25:00 EOS # 0.3 10*3/uL Normal (0.0-0.5) Final 04/12/2021 13:25:00 BASO # 0.0 10*3/uL Normal (0.0-0.2) Final 04/12/2021 13:25:00 SODIUM 141 mmol/L Normal (136-145) Final 04/12/2021 13:25:00 POTASSIUM 3.9 mmol/L Normal (3.6-5.2) Final 04/12/2021 13:25:00 CHLORIDE 108 mmol/L Normal (100-108) Final 04/12/2021 13:25:00 CO2 25 mmol/L Normal (22-31) Final 04/12/2021 13:25:00 ANION GAP 8 mmol/L Normal (7-16) Final 04/12/2021 13:25:00 UREA NITROGEN 14 mg/dL Normal (7-24) Final 04/12/2021 13:25:00 CREATININE 0.85 mg/dL Normal (0.80-1.30) Final 04/12/2021 13:25:00 BUN/CREAT RATIO 16.5 RATIO Normal (10.0-20.0) F inal 04/12/2021 13:25:00 GLUCOSE 99 mg/dL Normal (70-99) Final 04/12/2021 13:25:00 CALCIUM 8.7 mg/dL Normal (8.4-10.2) Final 04/12/2021 13:25:00 GFR >60 ml/min/1.73m2 Normal (>59) Fi nal 04/12/2021 13:25:00 GFR ( AMER) >60 ml/min/1.73m2 Normal (>5 9) Final 04/12/2021 13:25:00 GFR INTERPRETATION . Normal F inal 03/01/2021 9:31:00 CBCDIFF / BASIC METABOLIC Completed 03/01/2021 10:34:00 WBC 9.2 10*3/uL Normal (4.1-11.0) Final 03/01/2021 10:34:00 RBC 5.26 10*6/uL Normal (4.60-6.10) Final 03/01/2021 10:34:00 HGB 15.1 g/dL Normal (13.5-18.0) Final 03/01/2021 10:34:00 HCT 45.2 % Normal (41.0-53.0) Final 03/01/2021 10:34:00 MCV 85.9 fL Normal (80.0-95.0) Final 03/01/2021 10:34:00 MCH 28.7 pg Normal (27.0-32.0) Final 03/01/2021 10:34:00 MCHC 33.4 g/dL Normal (32.0-36.0) Final 03/01/2021 10:34:00 RDW 15.5 % Above High Normal (10.5-14.5) Final 03/01/2021 10:34:00 PLT 198 10*3/uL Normal (150-450) Final 03/01/2021 10:34:00 MPV 7.7 fL Normal (7.1-10.7) Final 03/01/2021 10:34:00 NEUT % 67.9 % Normal (35.0-75.0) Final 03/01/2021 10:34:00 LYMPH % 19.8 % Normal (16.0-52.0) Final 03/01/2021 10:34:00 MONO % 7.7 % Normal (0.0-8.0) Final 03/01/2021 10:34:00 EOS % 4.3 % Normal (0.0-5.0) Final 03/01/2021 10:34:00 BASO % 0.3 % Normal (0.0-4.0) Final 03/01/2021 10:34:00 NEUT # 6.2 10*3/uL Normal (1.8-7.7) Final 03/01/2021 10:34:00 LYMPH # 1.8 10*3/uL Normal (1.2-4.8) Final 03/01/2021 10:34:00 MONO # 0.7 10*3/uL Normal (0.0-0.8) Final 03/01/2021 10:34:00 EOS # 0.4 10*3/uL Normal (0.0-0.5) Final 03/01/2021 10:34:00 BASO # 0.0 10*3/uL Normal (0.0-0.2) Final 03/01/2021 10:34:00 SODIUM 140 mmol/L Normal (136-145) Final 03/01/2021 10:34:00 POTASSIUM 3.5 mmol/L Below Low normal (3.6-5.2) Fi nal 03/01/2021 10:34:00 CHLORIDE 106 mmol/L Normal (100-108) Final 03/01/2021 10:34:00 CO2 27 mmol/L Normal (22-31) Final 03/01/2021 10:34:00 ANION GAP 7 mmol/L Normal (7-16) Final 03/01/2021 10:34:00 UREA NITROGEN 13 mg/dL Normal (7-24) Final 03/01/2021 10:34:00 CREATININE 0.90 mg/dL Normal (0.80-1.30) Final 03/01/2021 10:34:00 BUN/CREAT RATIO 14.4 RATIO Normal (10.0-20.0) F inal 03/01/2021 10:34:00 GLUCOSE 73 mg/dL Normal (70-99) Final 03/01/2021 10:34:00 CALCIUM 8.7 mg/dL Normal (8.4-10.2) Final 03/01/2021 10:34:00 GFR >60 ml/min/1.73m2 Normal (>59) Fi nal 03/01/2021 10:34:00 GFR ( AMER) >60 ml/min/1.73m2 Normal (>5 9) Final 03/01/2021 10:34:00 GFR INTERPRETATION . Normal F inal 04/05/2021 11:40:00 CBCDIFF / BASIC METABOLIC Completed 04/05/2021 12:37:00 WBC 9.7 10*3/uL Normal (4.1-11.0) Final 04/05/2021 12:37:00 RBC 5.29 10*6/uL Normal (4.60-6.10) Final 04/05/2021 12:37:00 HGB 15.0 g/dL Normal (13.5-18.0) Final 04/05/2021 12:37:00 HCT 45.1 % Normal (41.0-53.0) Final 04/05/2021 12:37:00 MCV 85.3 fL Normal (80.0-95.0) Final 04/05/2021 12:37:00 MCH 28.4 pg Normal (27.0-32.0) Final 04/05/2021 12:37:00 MCHC 33.3 g/dL Normal (32.0-36.0) Final 04/05/2021 12:37:00 RDW 15.5 % Above High Normal (10.5-14.5) Final 04/05/2021 12:37:00 PLT 201 10*3/uL Normal (150-450) Final 04/05/2021 12:37:00 MPV 7.9 fL Normal (7.1-10.7) Final 04/05/2021 12:37:00 NEUT % 70.6 % Normal (35.0-75.0) Final 04/05/2021 12:37:00 LYMPH % 19.7 % Normal (16.0-52.0) Final 04/05/2021 12:37:00 MONO % 6.4 % Normal (0.0-8.0) Final 04/05/2021 12:37:00 EOS % 3.1 % Normal (0.0-5.0) Final 04/05/2021 12:37:00 BASO % 0.2 % Normal (0.0-4.0) Final 04/05/2021 12:37:00 NEUT # 6.8 10*3/uL Normal (1.8-7.7) Final 04/05/2021 12:37:00 LYMPH # 1.9 10*3/uL Normal (1.2-4.8) Final 04/05/2021 12:37:00 MONO # 0.6 10*3/uL Normal (0.0-0.8) Final 04/05/2021 12:37:00 EOS # 0.3 10*3/uL Normal (0.0-0.5) Final 04/05/2021 12:37:00 BASO # 0.0 10*3/uL Normal (0.0-0.2) Final 04/05/2021 12:37:00 SODIUM 142 mmol/L Normal (136-145) Final 04/05/2021 12:37:00 POTASSIUM 3.9 mmol/L Normal (3.6-5.2) Final 04/05/2021 12:37:00 CHLORIDE 107 mmol/L Normal (100-108) Final 04/05/2021 12:37:00 CO2 23 mmol/L Normal (22-31) Final 04/05/2021 12:37:00 ANION GAP 12 mmol/L Normal (7-16) Final 04/05/2021 12:37:00 UREA NITROGEN 10 mg/dL Normal (7-24) Final 04/05/2021 12:37:00 CREATININE 0.81 mg/dL Normal (0.80-1.30) Final 04/05/2021 12:37:00 BUN/CREAT RATIO 12.3 RATIO Normal (10.0-20.0) F inal 04/05/2021 12:37:00 GLUCOSE 74 mg/dL Normal (70-99) Final 04/05/2021 12:37:00 CALCIUM 8.3 mg/dL Below Low normal (8.4-10.2) Fi formerly [facility] 04/05/2021 12:37:00 GFR >60 ml/min/1.73m2 Normal (>59) Fi formerly [facility] 04/05/2021 12:37:00 GFR ( AMER) >60 ml/min/1.73m2 Normal (>5 9) Final 04/05/2021 12:37:00 GFR INTERPRETATION . Normal F inal Vital signs Description Observation Date BODY WEIGHT (MEASURED) 383.6 [lb_av] 02/06/2021 17:39: 00 PAIN LEVEL 0.0 {score} 02/06/2021 17:39:00 INTRAVASCULAR SYSTOLIC 145.0 mm[Hg] 02/06/2021 17:39: 00 INTRAVASCULAR DIASTOLIC 76.0 mm[Hg] 02/06/2021 17:39 :00 BODY TEMPERATURE 97.8 [degF] 02/06/2021 17:39:00 RESPIRATION RATE 18.0 /min 02/06/2021 17:39:00 HEART BEAT 107.0 {beats}/min 02/06/2021 17:39:00 OXYGEN SATURATION 96.0 % 02/06/2021 17:39:00 BODY TEMPERATURE 97.8 [degF] 02/06/2021 23:25:33 OXYGEN SATURATION 96.0 % 02/06/2021 23:25:33 BODY TEMPERATURE 97.5 [degF] 02/07/2021 4:49:47 OXYGEN SATURATION 96.0 % 02/07/2021 4:49:47 PAIN LEVEL 0.0 {score} 02/07/2021 4:50:32 PAIN LEVEL 0.0 {score} 02/07/2021 9:19:45 RESPIRATION RATE 18.0 /min 02/07/2021 10:33:44 INTRAVASCULAR SYSTOLIC 127.0 mm[Hg] 02/07/2021 10:33: 44 INTRAVASCULAR DIASTOLIC 75.0 mm[Hg] 02/07/2021 10:33 :44 HEART BEAT 94.0 {beats}/min 02/07/2021 10:33:44 PAIN LEVEL 0.0 {score} 02/07/2021 10:34:26 BODY HEIGHT (MEASURED) 71.0 [in_i] 02/07/2021 14:52: 00 PAIN LEVEL 0.0 {score} 02/07/2021 15:34:50 INTRAVASCULAR SYSTOLIC 140.0 mm[Hg] 02/07/2021 16:36: 00 INTRAVASCULAR DIASTOLIC 88.0 mm[Hg] 02/07/2021 16:36 :00 OXYGEN SATURATION 96.0 % 02/07/2021 16:36:00 HEART BEAT 89.0 {beats}/min 02/07/2021 16:36:00 BODY TEMPERATURE 97.4 [degF] 02/07/2021 16:37:00 PAIN LEVEL 3.0 {score} 02/07/2021 16:50:13 RESPIRATION RATE 18.0 /min 02/07/2021 16:57:57 PAIN LEVEL 0.0 {score} 02/07/2021 17:54:31 BODY TEMPERATURE 97.4 [degF] 02/07/2021 22:43:45 OXYGEN SATURATION 96.0 % 02/07/2021 22:43:45 PAIN LEVEL 0.0 {score} 02/08/2021 0:38:34 PAIN LEVEL 0.0 {score} 02/08/2021 10:16:38 PAIN LEVEL 5.0 {score} 02/08/2021 10:17:06 PAIN LEVEL 5.0 {score} 02/08/2021 11:20:56 BODY TEMPERATURE 98.4 [degF] 02/08/2021 11:21:39 OXYGEN SATURATION 96.0 % 02/08/2021 11:21:39 PAIN LEVEL 0.0 {score} 02/08/2021 11:51:04 RESPIRATION RATE 18.0 /min 02/08/2021 14:31:50 INTRAVASCULAR SYSTOLIC 133.0 mm[Hg] 02/08/2021 14:31: 50 INTRAVASCULAR DIASTOLIC 77.0 mm[Hg] 02/08/2021 14:31 :50 HEART BEAT 84.0 {beats}/min 02/08/2021 14:31:50 BODY TEMPERATURE 97.4 [degF] 02/08/2021 17:59:57 OXYGEN SATURATION 97.0 % 02/08/2021 17:59:57 PAIN LEVEL 0.0 {score} 02/08/2021 18:00:33 RESPIRATION RATE 18.0 /min 02/08/2021 18:00:45 INTRAVASCULAR SYSTOLIC 114.0 mm[Hg] 02/08/2021 18:00: 45 INTRAVASCULAR DIASTOLIC 73.0 mm[Hg] 02/08/2021 18:00 :45 HEART BEAT 80.0 {beats}/min 02/08/2021 18:00:45 BODY TEMPERATURE 97.4 [degF] 02/08/2021 18:11:00 RESPIRATION RATE 20.0 /min 02/08/2021 18:11:00 HEART BEAT 88.0 {beats}/min 02/08/2021 18:11:00 OXYGEN SATURATION 97.0 % 02/08/2021 18:12:00 INTRAVASCULAR SYSTOLIC 114.0 mm[Hg] 02/08/2021 18:12: 00 INTRAVASCULAR DIASTOLIC 73.0 mm[Hg] 02/08/2021 18:12 :00 BODY TEMPERATURE 97.0 [degF] 02/08/2021 23:33:34 OXYGEN SATURATION 97.0 % 02/08/2021 23:33:34 PAIN LEVEL 0.0 {score} 02/09/2021 7:07:32 PAIN LEVEL 0.0 {score} 02/09/2021 7:47:30 PAIN LEVEL 0.0 {score} 02/09/2021 8:44:41 BODY TEMPERATURE 97.2 [degF] 02/09/2021 10:55:08 OXYGEN SATURATION 97.0 % 02/09/2021 10:55:08 RESPIRATION RATE 18.0 /min 02/09/2021 10:55:21 INTRAVASCULAR SYSTOLIC 123.0 mm[Hg] 02/09/2021 10:55: 21 INTRAVASCULAR DIASTOLIC 77.0 mm[Hg] 02/09/2021 10:55 :21 HEART BEAT 72.0 {beats}/min 02/09/2021 10:55:21 PAIN LEVEL 0.0 {score} 02/09/2021 22:57:10 PAIN LEVEL 0.0 {score} 02/10/2021 0:10:22 INTRAVASCULAR SYSTOLIC 146.0 mm[Hg] 02/10/2021 5:26:0 0 INTRAVASCULAR DIASTOLIC 81.0 mm[Hg] 02/10/2021 5:26: 00 BODY TEMPERATURE 97.8 [degF] 02/10/2021 5:26:00 HEART BEAT 80.0 {beats}/min 02/10/2021 5:26:00 RESPIRATION RATE 18.0 /min 02/10/2021 5:26:00 OXYGEN SATURATION 97.0 % 02/10/2021 5:26:00 BODY TEMPERATURE 97.9 [degF] 02/10/2021 10:24:41 OXYGEN SATURATION 96.0 % 02/10/2021 10:24:41 RESPIRATION RATE 18.0 /min 02/10/2021 10:24:59 INTRAVASCULAR SYSTOLIC 114.0 mm[Hg] 02/10/2021 10:24: 59 INTRAVASCULAR DIASTOLIC 69.0 mm[Hg] 02/10/2021 10:24 :59 HEART BEAT 72.0 {beats}/min 02/10/2021 10:24:59 PAIN LEVEL 0.0 {score} 02/10/2021 10:25:59 OXYGEN SATURATION 95.0 % 02/10/2021 11:58:38 PAIN LEVEL 0.0 {score} 02/10/2021 18:28:28 RESPIRATION RATE 16.0 /min 02/10/2021 18:28:47 OXYGEN SATURATION 97.0 % 02/10/2021 18:28:47 BODY TEMPERATURE 98.0 [degF] 02/10/2021 18:29:08 OXYGEN SATURATION 97.0 % 02/10/2021 18:29:08 RESPIRATION RATE 16.0 /min 02/10/2021 18:29:27 INTRAVASCULAR SYSTOLIC 118.0 mm[Hg] 02/10/2021 18:29: 27 INTRAVASCULAR DIASTOLIC 62.0 mm[Hg] 02/10/2021 18:29 :27 HEART BEAT 72.0 {beats}/min 02/10/2021 18:29:27 PAIN LEVEL 8.0 {score} 02/10/2021 20:31:00 PAIN LEVEL 1.0 {score} 02/10/2021 21:11:23 BODY TEMPERATURE 97.8 [degF] 02/10/2021 21:34:24 OXYGEN SATURATION 99.0 % 02/10/2021 21:34:24 PAIN LEVEL 0.0 {score} 02/10/2021 23:50:25 PAIN LEVEL 0.0 {score} 02/11/2021 7:33:00 BODY TEMPERATURE 97.6 [degF] 02/11/2021 11:13:50 OXYGEN SATURATION 98.0 % 02/11/2021 11:13:50 BODY TEMPERATURE 97.5 [degF] 02/11/2021 15:41:45 OXYGEN SATURATION 97.0 % 02/11/2021 15:41:45 RESPIRATION RATE 18.0 /min 02/11/2021 15:45:54 INTRAVASCULAR SYSTOLIC 122.0 mm[Hg] 02/11/2021 15:45: 54 INTRAVASCULAR DIASTOLIC 68.0 mm[Hg] 02/11/2021 15:45 :54 HEART BEAT 78.0 {beats}/min 02/11/2021 15:45:54 PAIN LEVEL 0.0 {score} 02/11/2021 15:48:01 BODY TEMPERATURE 98.4 [degF] 02/11/2021 22:40:40 OXYGEN SATURATION 99.0 % 02/11/2021 22:40:40 BODY TEMPERATURE 96.1 [degF] 02/12/2021 6:26:00 OXYGEN SATURATION 97.0 % 02/12/2021 6:26:00 PAIN LEVEL 0.0 {score} 02/12/2021 6:27:00 BODY TEMPERATURE 96.1 [degF] 02/12/2021 7:00:39 OXYGEN SATURATION 97.0 % 02/12/2021 7:00:39 RESPIRATION RATE 18.0 /min 02/12/2021 7:01:34 INTRAVASCULAR SYSTOLIC 119.0 mm[Hg] 02/12/2021 7:01:3 4 INTRAVASCULAR DIASTOLIC 70.0 mm[Hg] 02/12/2021 7:01: 34 HEART BEAT 72.0 {beats}/min 02/12/2021 7:01:34 PAIN LEVEL 0.0 {score} 02/12/2021 7:52:10 PAIN LEVEL 0.0 {score} 02/12/2021 10:13:50 BODY TEMPERATURE 97.7 [degF] 02/12/2021 10:14:20 OXYGEN SATURATION 97.0 % 02/12/2021 10:14:20 RESPIRATION RATE 18.0 /min 02/12/2021 10:14:38 INTRAVASCULAR SYSTOLIC 128.0 mm[Hg] 02/12/2021 10:14: 38 INTRAVASCULAR DIASTOLIC 75.0 mm[Hg] 02/12/2021 10:14 :38 HEART BEAT 85.0 {beats}/min 02/12/2021 10:14:38 RESPIRATION RATE 18.0 /min 02/12/2021 10:15:11 OXYGEN SATURATION 85.0 % 02/12/2021 10:15:11 BODY TEMPERATURE 97.9 [degF] 02/12/2021 18:04:02 OXYGEN SATURATION 97.0 % 02/12/2021 18:04:02 RESPIRATION RATE 18.0 /min 02/12/2021 18:04:16 INTRAVASCULAR SYSTOLIC 120.0 mm[Hg] 02/12/2021 18:04: 16 INTRAVASCULAR DIASTOLIC 87.0 mm[Hg] 02/12/2021 18:04 :16 HEART BEAT 107.0 {beats}/min 02/12/2021 18:04:16 PAIN LEVEL 0.0 {score} 02/12/2021 18:04:38 PAIN LEVEL 7.0 {score} 02/12/2021 21:49:47 BODY TEMPERATURE 97.9 [degF] 02/12/2021 23:08:05 OXYGEN SATURATION 97.0 % 02/12/2021 23:08:05 PAIN LEVEL 0.0 {score} 02/12/2021 23:53:09 PAIN LEVEL 0.0 {score} 02/13/2021 0:31:10 PAIN LEVEL 0.0 {score} 02/13/2021 7:28:26 PAIN LEVEL 0.0 {score} 02/13/2021 14:03:48 BODY TEMPERATURE 97.8 [degF] 02/13/2021 14:03:56 OXYGEN SATURATION 97.0 % 02/13/2021 14:03:56 PAIN LEVEL 0.0 {score} 02/13/2021 15:39:23 INTRAVASCULAR SYSTOLIC 142.0 mm[Hg] 02/13/2021 22:22: 00 INTRAVASCULAR DIASTOLIC 88.0 mm[Hg] 02/13/2021 22:22 :00 BODY TEMPERATURE 98.0 [degF] 02/13/2021 22:22:00 HEART BEAT 100.0 {beats}/min 02/13/2021 22:22:00 RESPIRATION RATE 18.0 /min 02/13/2021 22:22:00 OXYGEN SATURATION 96.0 % 02/13/2021 22:22:00 PAIN LEVEL 0.0 {score} 02/13/2021 23:50:50 INTRAVASCULAR SYSTOLIC 146.0 mm[Hg] 02/14/2021 0:07:0 0 INTRAVASCULAR DIASTOLIC 86.0 mm[Hg] 02/14/2021 0:07: 00 BODY TEMPERATURE 97.6 [degF] 02/14/2021 0:07:00 HEART BEAT 97.0 {beats}/min 02/14/2021 0:07:00 RESPIRATION RATE 18.0 /min 02/14/2021 0:07:00 OXYGEN SATURATION 97.0 % 02/14/2021 0:07:00 PAIN LEVEL 0.0 {score} 02/14/2021 11:27:22 PAIN LEVEL 8.0 {score} 02/14/2021 12:44:49 PAIN LEVEL 0.0 {score} 02/14/2021 16:31:54 PAIN LEVEL 0.0 {score} 02/14/2021 18:03:01 PAIN LEVEL 0.0 {score} 02/15/2021 6:55:54 RESPIRATION RATE 18.0 /min 02/15/2021 9:55:23 OXYGEN SATURATION 97.0 % 02/15/2021 9:55:23 PAIN LEVEL 0.0 {score} 02/15/2021 9:55:43 RESPIRATION RATE 18.0 /min 02/15/2021 16:56:13 OXYGEN SATURATION 97.0 % 02/15/2021 16:56:13 PAIN LEVEL 0.0 {score} 02/15/2021 16:56:31 PAIN LEVEL 8.0 {score} 02/15/2021 21:39:34 PAIN LEVEL 0.0 {score} 02/15/2021 23:44:07 PAIN LEVEL 0.0 {score} 02/16/2021 2:14:33 INTRAVASCULAR SYSTOLIC 135.0 mm[Hg] 02/16/2021 6:37:0 0 INTRAVASCULAR DIASTOLIC 84.0 mm[Hg] 02/16/2021 6:37: 00 BODY TEMPERATURE 97.3 [degF] 02/16/2021 6:37:00 HEART BEAT 81.0 {beats}/min 02/16/2021 6:37:00 RESPIRATION RATE 20.0 /min 02/16/2021 6:37:00 OXYGEN SATURATION 98.0 % 02/16/2021 6:37:00 PAIN LEVEL 0.0 {score} 02/16/2021 10:11:31 PAIN LEVEL 0.0 {score} 02/16/2021 16:07:37 RESPIRATION RATE 20.0 /min 02/17/2021 7:54:00 INTRAVASCULAR SYSTOLIC 135.0 mm[Hg] 02/17/2021 7:54:0 0 INTRAVASCULAR DIASTOLIC 84.0 mm[Hg] 02/17/2021 7:54: 00 BODY TEMPERATURE 97.3 [degF] 02/17/2021 7:54:00 HEART BEAT 81.0 {beats}/min 02/17/2021 7:54:00 OXYGEN SATURATION 98.0 % 02/17/2021 7:54:00 PAIN LEVEL 0.0 {score} 02/17/2021 8:17:05 PAIN LEVEL 0.0 {score} 02/17/2021 9:24:15 PAIN LEVEL 0.0 {score} 02/17/2021 11:12:40 RESPIRATION RATE 19.0 /min 02/17/2021 11:13:30 OXYGEN SATURATION 98.0 % 02/17/2021 11:13:30 PAIN LEVEL 0.0 {score} 02/17/2021 15:51:31 PAIN LEVEL 0.0 {score} 02/17/2021 23:47:49 RESPIRATION RATE 18.0 /min 02/18/2021 1:13:36 BODY TEMPERATURE 97.5 [degF] 02/18/2021 1:13:36 HEART BEAT 80.0 {beats}/min 02/18/2021 1:13:36 PAIN LEVEL 0.0 {score} 02/18/2021 9:35:06 PAIN LEVEL 0.0 {score} 02/18/2021 11:29:29 RESPIRATION RATE 18.0 /min 02/18/2021 11:29:52 OXYGEN SATURATION 98.0 % 02/18/2021 11:29:52 PAIN LEVEL 0.0 {score} 02/18/2021 15:28:02 RESPIRATION RATE 18.0 /min 02/18/2021 15:28:10 OXYGEN SATURATION 98.0 % 02/18/2021 15:28:10 PAIN LEVEL 0.0 {score} 02/19/2021 0:12:39 RESPIRATION RATE 20.0 /min 02/19/2021 1:34:46 BODY TEMPERATURE 97.7 [degF] 02/19/2021 1:34:46 HEART BEAT 84.0 {beats}/min 02/19/2021 1:34:46 OXYGEN SATURATION 97.0 % 02/19/2021 1:34:46 PAIN LEVEL 0.0 {score} 02/19/2021 11:23:17 PAIN LEVEL 0.0 {score} 02/19/2021 16:33:00 PAIN LEVEL 0.0 {score} 02/19/2021 23:42:10 RESPIRATION RATE 20.0 /min 02/20/2021 2:36:10 BODY TEMPERATURE 97.9 [degF] 02/20/2021 2:36:10 HEART BEAT 80.0 {beats}/min 02/20/2021 2:36:10 OXYGEN SATURATION 96.0 % 02/20/2021 2:36:10 PAIN LEVEL 0.0 {score} 02/20/2021 9:55:51 PAIN LEVEL 7.0 {score} 02/20/2021 16:44:43 PAIN LEVEL 0.0 {score} 02/20/2021 18:20:55 PAIN LEVEL 0.0 {score} 02/20/2021 21:33:54 PAIN LEVEL 0.0 {score} 02/21/2021 0:40:59 RESPIRATION RATE 18.0 /min 02/21/2021 11:00:37 OXYGEN SATURATION 97.0 % 02/21/2021 11:00:37 PAIN LEVEL 0.0 {score} 02/21/2021 11:01:02 PAIN LEVEL 0.0 {score} 02/21/2021 17:20:42 PAIN LEVEL 8.0 {score} 02/21/2021 21:47:20 INTRAVASCULAR SYSTOLIC 124.0 mm[Hg] 02/21/2021 22:35: 00 INTRAVASCULAR DIASTOLIC 76.0 mm[Hg] 02/21/2021 22:35 :00 OXYGEN SATURATION 96.0 % 02/21/2021 22:35:00 HEART BEAT 96.0 {beats}/min 02/21/2021 22:35:00 RESPIRATION RATE 17.0 /min 02/21/2021 22:35:00 BODY TEMPERATURE 78.8 [degF] 02/21/2021 22:35:00 PAIN LEVEL 0.0 {score} 02/21/2021 22:45:10 PAIN LEVEL 0.0 {score} 02/21/2021 23:36:18 PAIN LEVEL 2.0 {score} 02/22/2021 10:28:04 PAIN LEVEL 0.0 {score} 02/22/2021 11:19:30 RESPIRATION RATE 18.0 /min 02/22/2021 13:45:44 OXYGEN SATURATION 97.0 % 02/22/2021 13:45:44 PAIN LEVEL 0.0 {score} 02/22/2021 17:56:55 PAIN LEVEL 7.0 {score} 02/22/2021 21:22:09 PAIN LEVEL 0.0 {score} 02/22/2021 22:38:42 PAIN LEVEL 0.0 {score} 02/23/2021 0:05:24 PAIN LEVEL 0.0 {score} 02/23/2021 10:16:25 RESPIRATION RATE 18.0 /min 02/23/2021 14:30:39 OXYGEN SATURATION 97.0 % 02/23/2021 14:30:39 PAIN LEVEL 0.0 {score} 02/23/2021 14:30:53 PAIN LEVEL 8.0 {score} 02/23/2021 18:36:05 PAIN LEVEL 0.0 {score} 02/23/2021 19:17:08 PAIN LEVEL 0.0 {score} 02/23/2021 22:47:50 PAIN LEVEL 0.0 {score} 02/24/2021 1:07:13 PAIN LEVEL 8.0 {score} 02/24/2021 8:25:36 PAIN LEVEL 0.0 {score} 02/24/2021 10:37:58 PAIN LEVEL 0.0 {score} 02/24/2021 11:39:51 PAIN LEVEL 0.0 {score} 02/24/2021 15:58:59 RESPIRATION RATE 18.0 /min 02/24/2021 18:27:55 OXYGEN SATURATION 97.0 % 02/24/2021 18:27:55 PAIN LEVEL 0.0 {score} 02/25/2021 1:29:00 PAIN LEVEL 0.0 {score} 02/25/2021 7:35:08 PAIN LEVEL 0.0 {score} 02/25/2021 11:22:40 PAIN LEVEL 0.0 {score} 02/25/2021 15:29:31 PAIN LEVEL 8.0 {score} 02/25/2021 21:17:11 PAIN LEVEL 0.0 {score} 02/26/2021 2:35:37 PAIN LEVEL 0.0 {score} 02/26/2021 2:49:54 RESPIRATION RATE 18.0 /min 02/26/2021 6:47:52 BODY TEMPERATURE 96.9 [degF] 02/26/2021 6:47:52 PAIN LEVEL 0.0 {score} 02/26/2021 10:14:28 RESPIRATION RATE 18.0 /min 02/26/2021 10:42:57 OXYGEN SATURATION 97.0 % 02/26/2021 10:42:57 PAIN LEVEL 5.0 {score} 02/26/2021 10:43:09 PAIN LEVEL 0.0 {score} 02/26/2021 19:22:00 PAIN LEVEL 8.0 {score} 02/26/2021 21:17:30 PAIN LEVEL 0.0 {score} 02/26/2021 22:53:46 BODY TEMPERATURE 97.6 [degF] 02/27/2021 1:14:38 OXYGEN SATURATION 97.0 % 02/27/2021 1:14:38 RESPIRATION RATE 18.0 /min 02/27/2021 1:14:58 HEART BEAT 79.0 {beats}/min 02/27/2021 1:14:58 PAIN LEVEL 0.0 {score} 02/27/2021 1:15:25 BODY TEMPERATURE 97.6 [degF] 02/27/2021 5:25:39 OXYGEN SATURATION 97.0 % 02/27/2021 5:25:39 PAIN LEVEL 0.0 {score} 02/27/2021 9:28:37 PAIN LEVEL 0.0 {score} 02/27/2021 10:23:29 BODY WEIGHT (MEASURED) 371.9 [lb_av] 02/27/2021 11:33: 00 BODY TEMPERATURE 97.8 [degF] 02/27/2021 14:09:07 OXYGEN SATURATION 97.0 % 02/27/2021 14:09:07 BODY TEMPERATURE 97.2 [degF] 02/27/2021 14:09:31 OXYGEN SATURATION 97.0 % 02/27/2021 14:09:31 RESPIRATION RATE 18.0 /min 02/27/2021 14:09:42 INTRAVASCULAR SYSTOLIC 125.0 mm[Hg] 02/27/2021 14:09: 42 INTRAVASCULAR DIASTOLIC 75.0 mm[Hg] 02/27/2021 14:09 :42 HEART BEAT 88.0 {beats}/min 02/27/2021 14:09:42 RESPIRATION RATE 18.0 /min 02/27/2021 14:10:03 OXYGEN SATURATION 97.0 % 02/27/2021 14:10:03 PAIN LEVEL 0.0 {score} 02/27/2021 17:30:22 PAIN LEVEL 9.0 {score} 02/27/2021 21:53:16 PAIN LEVEL 0.0 {score} 02/27/2021 23:03:56 PAIN LEVEL 0.0 {score} 02/28/2021 0:15:46 BODY TEMPERATURE 97.9 [degF] 02/28/2021 3:05:25 BODY TEMPERATURE 97.0 [degF] 02/28/2021 11:19:26 OXYGEN SATURATION 96.0 % 02/28/2021 11:19:26 RESPIRATION RATE 18.0 /min 02/28/2021 11:19:52 INTRAVASCULAR SYSTOLIC 141.0 mm[Hg] 02/28/2021 11:19: 52 INTRAVASCULAR DIASTOLIC 86.0 mm[Hg] 02/28/2021 11:19 :52 HEART BEAT 100.0 {beats}/min 02/28/2021 11:19:52 PAIN LEVEL 0.0 {score} 02/28/2021 11:20:37 BODY TEMPERATURE 97.2 [degF] 02/28/2021 14:03:47 OXYGEN SATURATION 97.0 % 02/28/2021 14:03:47 BODY TEMPERATURE 97.3 [degF] 02/28/2021 20:49:00 RESPIRATION RATE 24.0 /min 02/28/2021 20:50:00 HEART BEAT 91.0 {beats}/min 02/28/2021 20:50:00 OXYGEN SATURATION 97.0 % 02/28/2021 20:50:00 INTRAVASCULAR SYSTOLIC 117.0 mm[Hg] 02/28/2021 20:50: 00 INTRAVASCULAR DIASTOLIC 75.0 mm[Hg] 02/28/2021 20:50 :00 PAIN LEVEL 6.0 {score} 02/28/2021 21:02:47 PAIN LEVEL 0.0 {score} 02/28/2021 22:11:29 PAIN LEVEL 0.0 {score} 02/28/2021 22:24:00 BODY TEMPERATURE 96.6 [degF] 03/01/2021 4:06:07 OXYGEN SATURATION 98.0 % 03/01/2021 4:06:07 RESPIRATION RATE 21.0 /min 03/01/2021 4:06:21 INTRAVASCULAR SYSTOLIC 131.0 mm[Hg] 03/01/2021 4:06:2 1 INTRAVASCULAR DIASTOLIC 81.0 mm[Hg] 03/01/2021 4:06: 21 HEART BEAT 74.0 {beats}/min 03/01/2021 4:06:21 PAIN LEVEL 0.0 {score} 03/01/2021 4:06:51 PAIN LEVEL 0.0 {score} 03/01/2021 9:08:37 BODY TEMPERATURE 97.6 [degF] 03/01/2021 11:35:53 OXYGEN SATURATION 97.0 % 03/01/2021 11:35:53 RESPIRATION RATE 20.0 /min 03/01/2021 11:36:05 INTRAVASCULAR SYSTOLIC 128.0 mm[Hg] 03/01/2021 11:36: 05 INTRAVASCULAR DIASTOLIC 78.0 mm[Hg] 03/01/2021 11:36 :05 HEART BEAT 72.0 {beats}/min 03/01/2021 11:36:05 RESPIRATION RATE 20.0 /min 03/01/2021 11:36:27 OXYGEN SATURATION 97.0 % 03/01/2021 11:36:27 PAIN LEVEL 0.0 {score} 03/01/2021 11:36:50 BODY WEIGHT (MEASURED) 372.1 [lb_av] 03/01/2021 12:07: 00 BODY TEMPERATURE 97.6 [degF] 03/01/2021 12:47:44 OXYGEN SATURATION 97.0 % 03/01/2021 12:47:44 PAIN LEVEL 0.0 {score} 03/01/2021 18:02:15 PAIN LEVEL 6.0 {score} 03/01/2021 21:45:26 PAIN LEVEL 0.0 {score} 03/01/2021 22:32:42 PAIN LEVEL 0.0 {score} 03/02/2021 5:26:57 PAIN LEVEL 0.0 {score} 03/02/2021 9:29:00 PAIN LEVEL 0.0 {score} 03/02/2021 16:54:07 PAIN LEVEL 0.0 {score} 03/02/2021 17:41:08 BODY TEMPERATURE 97.9 [degF] 03/02/2021 20:19:32 OXYGEN SATURATION 97.0 % 03/02/2021 20:19:32 BODY TEMPERATURE 97.9 [degF] 03/02/2021 20:19:50 OXYGEN SATURATION 97.0 % 03/02/2021 20:19:50 RESPIRATION RATE 18.0 /min 03/02/2021 20:20:22 INTRAVASCULAR SYSTOLIC 126.0 mm[Hg] 03/02/2021 20:20: 22 INTRAVASCULAR DIASTOLIC 82.0 mm[Hg] 03/02/2021 20:20 :22 HEART BEAT 87.0 {beats}/min 03/02/2021 20:20:22 PAIN LEVEL 0.0 {score} 03/03/2021 3:22:31 PAIN LEVEL 5.0 {score} 03/03/2021 7:39:00 PAIN LEVEL 2.0 {score} 03/03/2021 10:16:50 BODY TEMPERATURE 97.1 [degF] 03/03/2021 10:35:27 OXYGEN SATURATION 98.0 % 03/03/2021 10:35:27 PAIN LEVEL 0.0 {score} 03/03/2021 10:36:02 RESPIRATION RATE 18.0 /min 03/03/2021 10:38:08 INTRAVASCULAR SYSTOLIC 124.0 mm[Hg] 03/03/2021 10:38: 08 INTRAVASCULAR DIASTOLIC 78.0 mm[Hg] 03/03/2021 10:38 :08 HEART BEAT 82.0 {beats}/min 03/03/2021 10:38:08 RESPIRATION RATE 18.0 /min 03/03/2021 10:38:45 OXYGEN SATURATION 98.0 % 03/03/2021 10:38:45 BODY TEMPERATURE 97.2 [degF] 03/03/2021 12:22:23 OXYGEN SATURATION 97.0 % 03/03/2021 12:22:23 BODY TEMPERATURE 97.4 [degF] 03/03/2021 18:45:00 RESPIRATION RATE 16.0 /min 03/03/2021 18:45:00 HEART BEAT 86.0 {beats}/min 03/03/2021 18:45:00 OXYGEN SATURATION 96.0 % 03/03/2021 18:45:00 INTRAVASCULAR SYSTOLIC 132.0 mm[Hg] 03/03/2021 18:46: 00 INTRAVASCULAR DIASTOLIC 83.0 mm[Hg] 03/03/2021 18:46 :00 PAIN LEVEL 6.0 {score} 03/03/2021 21:07:43 PAIN LEVEL 0.0 {score} 03/03/2021 21:31:12 PAIN LEVEL 0.0 {score} 03/03/2021 22:51:53 PAIN LEVEL 0.0 {score} 03/04/2021 1:15:00 PAIN LEVEL 0.0 {score} 03/04/2021 9:05:00 BODY TEMPERATURE 97.7 [degF] 03/04/2021 10:09:09 OXYGEN SATURATION 97.0 % 03/04/2021 10:09:09 RESPIRATION RATE 18.0 /min 03/04/2021 10:09:23 INTRAVASCULAR SYSTOLIC 128.0 mm[Hg] 03/04/2021 10:09: 23 INTRAVASCULAR DIASTOLIC 84.0 mm[Hg] 03/04/2021 10:09 :23 HEART BEAT 84.0 {beats}/min 03/04/2021 10:09:23 RESPIRATION RATE 18.0 /min 03/04/2021 10:09:46 OXYGEN SATURATION 97.0 % 03/04/2021 10:09:46 PAIN LEVEL 0.0 {score} 03/04/2021 10:10:06 BODY TEMPERATURE 97.7 [degF] 03/04/2021 14:34:59 OXYGEN SATURATION 97.0 % 03/04/2021 14:34:59 PAIN LEVEL 7.0 {score} 03/04/2021 22:30:53 PAIN LEVEL 0.0 {score} 03/04/2021 22:51:01 PAIN LEVEL 0.0 {score} 03/04/2021 23:00:11 PAIN LEVEL 0.0 {score} 03/05/2021 1:09:03 PAIN LEVEL 0.0 {score} 03/05/2021 7:27:22 PAIN LEVEL 0.0 {score} 03/05/2021 10:40:52 BODY TEMPERATURE 98.8 [degF] 03/05/2021 16:41:08 OXYGEN SATURATION 98.0 % 03/05/2021 16:41:08 PAIN LEVEL 0.0 {score} 03/05/2021 16:41:22 PAIN LEVEL 7.0 {score} 03/05/2021 21:41:26 BODY TEMPERATURE 98.7 [degF] 03/05/2021 22:35:56 OXYGEN SATURATION 98.0 % 03/05/2021 22:35:56 RESPIRATION RATE 18.0 /min 03/05/2021 22:36:10 INTRAVASCULAR SYSTOLIC 132.0 mm[Hg] 03/05/2021 22:36: 10 INTRAVASCULAR DIASTOLIC 87.0 mm[Hg] 03/05/2021 22:36 :10 HEART BEAT 78.0 {beats}/min 03/05/2021 22:36:10 PAIN LEVEL 0.0 {score} 03/05/2021 23:03:49 BODY TEMPERATURE 97.8 [degF] 03/06/2021 1:51:57 OXYGEN SATURATION 97.0 % 03/06/2021 1:51:57 PAIN LEVEL 0.0 {score} 03/06/2021 1:52:34 PAIN LEVEL 0.0 {score} 03/06/2021 7:33:42 PAIN LEVEL 0.0 {score} 03/06/2021 9:00:00 PAIN LEVEL 8.0 {score} 03/06/2021 9:03:36 PAIN LEVEL 0.0 {score} 03/06/2021 10:36:33 BODY TEMPERATURE 97.6 [degF] 03/06/2021 11:23:38 OXYGEN SATURATION 98.0 % 03/06/2021 11:23:38 RESPIRATION RATE 18.0 /min 03/06/2021 11:27:20 OXYGEN SATURATION 98.0 % 03/06/2021 11:27:20 RESPIRATION RATE 18.0 /min 03/06/2021 15:17:57 INTRAVASCULAR SYSTOLIC 142.0 mm[Hg] 03/06/2021 15:17: 57 INTRAVASCULAR DIASTOLIC 75.0 mm[Hg] 03/06/2021 15:17 :57 HEART BEAT 84.0 {beats}/min 03/06/2021 15:17:57 BODY TEMPERATURE 97.6 [degF] 03/06/2021 15:18:14 OXYGEN SATURATION 98.0 % 03/06/2021 15:18:14 PAIN LEVEL 0.0 {score} 03/06/2021 23:29:10 PAIN LEVEL 0.0 {score} 03/07/2021 3:43:14 BODY TEMPERATURE 97.5 [degF] 03/07/2021 3:43:27 OXYGEN SATURATION 97.0 % 03/07/2021 3:43:27 PAIN LEVEL 0.0 {score} 03/07/2021 10:08:47 BODY TEMPERATURE 97.3 [degF] 03/07/2021 12:23:29 OXYGEN SATURATION 98.0 % 03/07/2021 12:23:29 BODY TEMPERATURE 97.3 [degF] 03/07/2021 12:23:54 OXYGEN SATURATION 98.0 % 03/07/2021 12:23:54 RESPIRATION RATE 20.0 /min 03/07/2021 12:24:13 INTRAVASCULAR SYSTOLIC 136.0 mm[Hg] 03/07/2021 12:24: 13 INTRAVASCULAR DIASTOLIC 78.0 mm[Hg] 03/07/2021 12:24 :13 HEART BEAT 88.0 {beats}/min 03/07/2021 12:24:13 RESPIRATION RATE 18.0 /min 03/07/2021 12:25:26 OXYGEN SATURATION 98.0 % 03/07/2021 12:25:26 BODY TEMPERATURE 97.3 [degF] 03/07/2021 17:57:06 OXYGEN SATURATION 96.0 % 03/07/2021 17:57:06 RESPIRATION RATE 18.0 /min 03/07/2021 17:57:33 OXYGEN SATURATION 96.0 % 03/07/2021 17:57:33 RESPIRATION RATE 18.0 /min 03/07/2021 17:57:50 INTRAVASCULAR SYSTOLIC 128.0 mm[Hg] 03/07/2021 17:57: 50 INTRAVASCULAR DIASTOLIC 84.0 mm[Hg] 03/07/2021 17:57 :50 HEART BEAT 82.0 {beats}/min 03/07/2021 17:57:50 PAIN LEVEL 0.0 {score} 03/07/2021 17:58:40 PAIN LEVEL 0.0 {score} 03/08/2021 2:48:34 PAIN LEVEL 0.0 {score} 03/08/2021 8:49:30 PAIN LEVEL 0.0 {score} 03/08/2021 11:30:12 BODY TEMPERATURE 97.9 [degF] 03/08/2021 11:38:48 OXYGEN SATURATION 96.0 % 03/08/2021 11:38:48 RESPIRATION RATE 18.0 /min 03/08/2021 11:39:00 INTRAVASCULAR SYSTOLIC 142.0 mm[Hg] 03/08/2021 11:39: 00 INTRAVASCULAR DIASTOLIC 83.0 mm[Hg] 03/08/2021 11:39 :00 HEART BEAT 99.0 {beats}/min 03/08/2021 11:39:00 BODY TEMPERATURE 97.5 [degF] 03/08/2021 15:06:21 OXYGEN SATURATION 97.0 % 03/08/2021 15:06:21 PAIN LEVEL 0.0 {score} 03/08/2021 17:15:48 PAIN LEVEL 6.0 {score} 03/08/2021 22:24:35 PAIN LEVEL 0.0 {score} 03/08/2021 23:05:07 PAIN LEVEL 0.0 {score} 03/09/2021 0:31:17 PAIN LEVEL 0.0 {score} 03/09/2021 8:15:06 BODY TEMPERATURE 97.8 [degF] 03/09/2021 11:29:21 OXYGEN SATURATION 97.0 % 03/09/2021 11:29:21 PAIN LEVEL 5.0 {score} 03/09/2021 11:47:40 PAIN LEVEL 0.0 {score} 03/09/2021 12:35:12 BODY TEMPERATURE 97.6 [degF] 03/09/2021 13:45:39 OXYGEN SATURATION 97.0 % 03/09/2021 13:45:39 RESPIRATION RATE 18.0 /min 03/09/2021 13:45:48 INTRAVASCULAR SYSTOLIC 144.0 mm[Hg] 03/09/2021 13:45: 48 INTRAVASCULAR DIASTOLIC 82.0 mm[Hg] 03/09/2021 13:45 :48 HEART BEAT 92.0 {beats}/min 03/09/2021 13:45:48 RESPIRATION RATE 18.0 /min 03/09/2021 13:46:14 OXYGEN SATURATION 97.0 % 03/09/2021 13:46:14 PAIN LEVEL 0.0 {score} 03/09/2021 13:47:06 BODY TEMPERATURE 97.6 [degF] 03/09/2021 17:07:00 OXYGEN SATURATION 98.0 % 03/09/2021 17:07:00 RESPIRATION RATE 17.0 /min 03/09/2021 19:08:13 INTRAVASCULAR SYSTOLIC 126.0 mm[Hg] 03/09/2021 19:08: 13 INTRAVASCULAR DIASTOLIC 76.0 mm[Hg] 03/09/2021 19:08 :13 HEART BEAT 90.0 {beats}/min 03/09/2021 19:08:13 PAIN LEVEL 0.0 {score} 03/09/2021 19:33:02 PAIN LEVEL 6.0 {score} 03/09/2021 20:14:06 PAIN LEVEL 0.0 {score} 03/09/2021 22:41:19 PAIN LEVEL 0.0 {score} 03/10/2021 1:06:06 PAIN LEVEL 0.0 {score} 03/10/2021 6:45:48 PAIN LEVEL 0.0 {score} 03/10/2021 7:29:05 BODY TEMPERATURE 97.5 [degF] 03/10/2021 13:53:46 OXYGEN SATURATION 96.0 % 03/10/2021 13:53:46 RESPIRATION RATE 18.0 /min 03/10/2021 13:54:05 INTRAVASCULAR SYSTOLIC 132.0 mm[Hg] 03/10/2021 13:54: 05 INTRAVASCULAR DIASTOLIC 81.0 mm[Hg] 03/10/2021 13:54 :05 HEART BEAT 85.0 {beats}/min 03/10/2021 13:54:05 BODY TEMPERATURE 97.7 [degF] 03/10/2021 13:54:34 OXYGEN SATURATION 96.0 % 03/10/2021 13:54:34 BODY TEMPERATURE 97.5 [degF] 03/10/2021 23:22:25 OXYGEN SATURATION 96.0 % 03/10/2021 23:22:25 RESPIRATION RATE 18.0 /min 03/10/2021 23:22:38 INTRAVASCULAR SYSTOLIC 118.0 mm[Hg] 03/10/2021 23:22: 38 INTRAVASCULAR DIASTOLIC 72.0 mm[Hg] 03/10/2021 23:22 :38 HEART BEAT 78.0 {beats}/min 03/10/2021 23:22:38 RESPIRATION RATE 18.0 /min 03/10/2021 23:22:56 OXYGEN SATURATION 98.0 % 03/10/2021 23:22:56 BODY TEMPERATURE 97.5 [degF] 03/10/2021 23:23:13 OXYGEN SATURATION 97.0 % 03/10/2021 23:23:13 PAIN LEVEL 0.0 {score} 03/10/2021 23:23:30 PAIN LEVEL 0.0 {score} 03/11/2021 2:24:08 PAIN LEVEL 0.0 {score} 03/11/2021 7:12:40 PAIN LEVEL 0.0 {score} 03/11/2021 14:23:46 BODY TEMPERATURE 97.8 [degF] 03/11/2021 14:23:56 OXYGEN SATURATION 98.0 % 03/11/2021 14:23:56 RESPIRATION RATE 18.0 /min 03/11/2021 14:37:43 INTRAVASCULAR SYSTOLIC 130.0 mm[Hg] 03/11/2021 14:37: 43 INTRAVASCULAR DIASTOLIC 80.0 mm[Hg] 03/11/2021 14:37 :43 HEART BEAT 82.0 {beats}/min 03/11/2021 14:37:43 BODY TEMPERATURE 97.1 [degF] 03/11/2021 14:38:07 OXYGEN SATURATION 97.0 % 03/11/2021 14:38:07 BODY TEMPERATURE 98.0 [degF] 03/11/2021 22:37:21 OXYGEN SATURATION 96.0 % 03/11/2021 22:37:21 PAIN LEVEL 0.0 {score} 03/11/2021 22:37:53 RESPIRATION RATE 19.0 /min 03/11/2021 22:38:20 INTRAVASCULAR SYSTOLIC 116.0 mm[Hg] 03/11/2021 22:38: 20 INTRAVASCULAR DIASTOLIC 68.0 mm[Hg] 03/11/2021 22:38 :20 HEART BEAT 85.0 {beats}/min 03/11/2021 22:38:20 PAIN LEVEL 0.0 {score} 03/11/2021 23:49:27 PAIN LEVEL 0.0 {score} 03/12/2021 8:01:09 BODY TEMPERATURE 97.8 [degF] 03/12/2021 11:32:21 OXYGEN SATURATION 97.0 % 03/12/2021 11:32:21 BODY TEMPERATURE 97.6 [degF] 03/12/2021 12:47:57 OXYGEN SATURATION 97.0 % 03/12/2021 12:47:57 RESPIRATION RATE 18.0 /min 03/12/2021 12:48:09 INTRAVASCULAR SYSTOLIC 112.0 mm[Hg] 03/12/2021 12:48: 09 INTRAVASCULAR DIASTOLIC 64.0 mm[Hg] 03/12/2021 12:48 :09 HEART BEAT 84.0 {beats}/min 03/12/2021 12:48:09 RESPIRATION RATE 18.0 /min 03/12/2021 12:48:32 OXYGEN SATURATION 97.0 % 03/12/2021 12:48:32 PAIN LEVEL 0.0 {score} 03/12/2021 12:48:52 RESPIRATION RATE 18.0 /min 03/12/2021 15:53:19 INTRAVASCULAR SYSTOLIC 122.0 mm[Hg] 03/12/2021 15:53: 19 INTRAVASCULAR DIASTOLIC 78.0 mm[Hg] 03/12/2021 15:53 :19 HEART BEAT 85.0 {beats}/min 03/12/2021 15:53:19 RESPIRATION RATE 18.0 /min 03/12/2021 15:53:38 OXYGEN SATURATION 97.0 % 03/12/2021 15:53:38 PAIN LEVEL 0.0 {score} 03/12/2021 15:54:02 BODY TEMPERATURE 97.6 [degF] 03/12/2021 16:05:19 OXYGEN SATURATION 97.0 % 03/12/2021 16:05:19 PAIN LEVEL 5.0 {score} 03/12/2021 19:54:48 PAIN LEVEL 0.0 {score} 03/12/2021 22:09:52 BODY TEMPERATURE 98.7 [degF] 03/12/2021 22:11:45 OXYGEN SATURATION 99.0 % 03/12/2021 22:11:45 PAIN LEVEL 0.0 {score} 03/13/2021 2:17:54 PAIN LEVEL 0.0 {score} 03/13/2021 7:53:22 BODY TEMPERATURE 98.6 [degF] 03/13/2021 11:20:02 OXYGEN SATURATION 99.0 % 03/13/2021 11:20:02 PAIN LEVEL 0.0 {score} 03/13/2021 11:20:23 RESPIRATION RATE 18.0 /min 03/13/2021 11:20:54 OXYGEN SATURATION 99.0 % 03/13/2021 11:20:54 RESPIRATION RATE 18.0 /min 03/13/2021 11:21:22 INTRAVASCULAR SYSTOLIC 116.0 mm[Hg] 03/13/2021 11:21: 22 INTRAVASCULAR DIASTOLIC 74.0 mm[Hg] 03/13/2021 11:21 :22 HEART BEAT 85.0 {beats}/min 03/13/2021 11:21:22 BODY TEMPERATURE 98.0 [degF] 03/13/2021 12:20:37 OXYGEN SATURATION 98.0 % 03/13/2021 12:20:37 BODY WEIGHT (MEASURED) 370.5 [lb_av] 03/13/2021 14:50: 00 PAIN LEVEL 0.0 {score} 03/13/2021 17:46:56 PAIN LEVEL 8.0 {score} 03/13/2021 21:52:57 PAIN LEVEL 0.0 {score} 03/13/2021 22:35:58 PAIN LEVEL 0.0 {score} 03/14/2021 3:49:41 BODY TEMPERATURE 98.0 [degF] 03/14/2021 5:55:25 OXYGEN SATURATION 98.0 % 03/14/2021 5:55:25 BODY TEMPERATURE 98.5 [degF] 03/14/2021 10:42:37 OXYGEN SATURATION 97.0 % 03/14/2021 10:42:37 RESPIRATION RATE 18.0 /min 03/14/2021 10:45:32 INTRAVASCULAR SYSTOLIC 127.0 mm[Hg] 03/14/2021 10:45: 32 INTRAVASCULAR DIASTOLIC 69.0 mm[Hg] 03/14/2021 10:45 :32 HEART BEAT 77.0 {beats}/min 03/14/2021 10:45:32 RESPIRATION RATE 18.0 /min 03/14/2021 10:46:11 OXYGEN SATURATION 97.0 % 03/14/2021 10:46:11 PAIN LEVEL 0.0 {score} 03/14/2021 10:46:33 BODY TEMPERATURE 97.8 [degF] 03/14/2021 12:20:28 OXYGEN SATURATION 97.0 % 03/14/2021 12:20:28 BODY TEMPERATURE 97.8 [degF] 03/14/2021 18:27:41 OXYGEN SATURATION 95.0 % 03/14/2021 18:27:41 PAIN LEVEL 0.0 {score} 03/14/2021 18:28:29 RESPIRATION RATE 18.0 /min 03/14/2021 18:28:37 INTRAVASCULAR SYSTOLIC 137.0 mm[Hg] 03/14/2021 18:28: 37 INTRAVASCULAR DIASTOLIC 77.0 mm[Hg] 03/14/2021 18:28 :37 HEART BEAT 90.0 {beats}/min 03/14/2021 18:28:37 BODY TEMPERATURE 97.8 [degF] 03/14/2021 23:13:52 OXYGEN SATURATION 95.0 % 03/14/2021 23:13:52 PAIN LEVEL 0.0 {score} 03/15/2021 9:02:36 PAIN LEVEL 0.0 {score} 03/15/2021 11:37:20 BODY TEMPERATURE 97.8 [degF] 03/15/2021 13:59:22 OXYGEN SATURATION 96.0 % 03/15/2021 13:59:22 RESPIRATION RATE 18.0 /min 03/15/2021 13:59:35 BODY TEMPERATURE 97.2 [degF] 03/15/2021 18:11:00 HEART BEAT 76.0 {beats}/min 03/15/2021 18:11:00 RESPIRATION RATE 20.0 /min 03/15/2021 18:11:00 INTRAVASCULAR SYSTOLIC 149.0 mm[Hg] 03/15/2021 18:11: 00 INTRAVASCULAR DIASTOLIC 84.0 mm[Hg] 03/15/2021 18:11 :00 OXYGEN SATURATION 95.0 % 03/15/2021 18:11:00 PAIN LEVEL 0.0 {score} 03/15/2021 18:58:17 PAIN LEVEL 0.0 {score} 03/16/2021 2:40:09 BODY TEMPERATURE 97.7 [degF] 03/16/2021 14:05:49 OXYGEN SATURATION 97.0 % 03/16/2021 14:05:49 BODY TEMPERATURE 97.8 [degF] 03/16/2021 14:06:08 OXYGEN SATURATION 97.0 % 03/16/2021 14:06:08 RESPIRATION RATE 20.0 /min 03/16/2021 14:07:03 INTRAVASCULAR SYSTOLIC 142.0 mm[Hg] 03/16/2021 14:07: 03 INTRAVASCULAR DIASTOLIC 78.0 mm[Hg] 03/16/2021 14:07 :03 HEART BEAT 78.0 {beats}/min 03/16/2021 14:07:03 RESPIRATION RATE 18.0 /min 03/16/2021 14:07:30 OXYGEN SATURATION 97.0 % 03/16/2021 14:07:30 PAIN LEVEL 0.0 {score} 03/16/2021 14:07:51 RESPIRATION RATE 18.0 /min 03/16/2021 16:22:42 OXYGEN SATURATION 97.0 % 03/16/2021 16:22:42 PAIN LEVEL 0.0 {score} 03/16/2021 16:26:15 BODY TEMPERATURE 97.9 [degF] 03/16/2021 19:50:17 OXYGEN SATURATION 98.0 % 03/16/2021 19:50:17 PAIN LEVEL 0.0 {score} 03/17/2021 1:42:13 PAIN LEVEL 8.0 {score} 03/17/2021 9:33:07 PAIN LEVEL 0.0 {score} 03/17/2021 10:19:20 BODY TEMPERATURE 98.0 [degF] 03/17/2021 13:40:34 OXYGEN SATURATION 79.0 % 03/17/2021 13:40:34 PAIN LEVEL 0.0 {score} 03/17/2021 13:41:04 PAIN LEVEL 0.0 {score} 03/17/2021 15:46:53 BODY TEMPERATURE 98.3 [degF] 03/17/2021 17:02:16 OXYGEN SATURATION 97.0 % 03/17/2021 17:02:16 RESPIRATION RATE 17.0 /min 03/17/2021 17:03:29 INTRAVASCULAR SYSTOLIC 140.0 mm[Hg] 03/17/2021 17:03: 29 INTRAVASCULAR DIASTOLIC 74.0 mm[Hg] 03/17/2021 17:03 :29 HEART BEAT 80.0 {beats}/min 03/17/2021 17:03:29 PAIN LEVEL 6.0 {score} 03/17/2021 21:47:35 PAIN LEVEL 0.0 {score} 03/17/2021 22:33:47 PAIN LEVEL 0.0 {score} 03/18/2021 0:09:06 PAIN LEVEL 8.0 {score} 03/18/2021 9:42:53 PAIN LEVEL 8.0 {score} 03/18/2021 9:46:46 BODY TEMPERATURE 96.4 [degF] 03/18/2021 12:55:35 OXYGEN SATURATION 96.0 % 03/18/2021 12:55:35 PAIN LEVEL 0.0 {score} 03/18/2021 12:55:57 PAIN LEVEL 0.0 {score} 03/18/2021 13:52:01 PAIN LEVEL 7.0 {score} 03/18/2021 19:24:49 INTRAVASCULAR SYSTOLIC 132.0 mm[Hg] 03/18/2021 19:57: 00 INTRAVASCULAR DIASTOLIC 96.0 mm[Hg] 03/18/2021 19:57 :00 BODY TEMPERATURE 96.8 [degF] 03/18/2021 19:57:00 HEART BEAT 94.0 {beats}/min 03/18/2021 19:57:00 RESPIRATION RATE 18.0 /min 03/18/2021 19:57:00 OXYGEN SATURATION 98.0 % 03/18/2021 19:57:00 PAIN LEVEL 0.0 {score} 03/18/2021 19:57:00 PAIN LEVEL 0.0 {score} 03/18/2021 20:13:33 PAIN LEVEL 0.0 {score} 03/18/2021 23:24:01 PAIN LEVEL 0.0 {score} 03/19/2021 5:27:54 RESPIRATION RATE 18.0 /min 03/19/2021 5:28:06 HEART BEAT 85.0 {beats}/min 03/19/2021 5:28:06 BODY TEMPERATURE 96.6 [degF] 03/19/2021 5:28:23 OXYGEN SATURATION 95.0 % 03/19/2021 5:28:23 BODY TEMPERATURE 96.6 [degF] 03/19/2021 5:28:39 OXYGEN SATURATION 95.0 % 03/19/2021 5:28:39 PAIN LEVEL 0.0 {score} 03/19/2021 8:02:05 BODY TEMPERATURE 97.6 [degF] 03/19/2021 10:22:32 OXYGEN SATURATION 96.0 % 03/19/2021 10:22:32 RESPIRATION RATE 18.0 /min 03/19/2021 10:22:53 OXYGEN SATURATION 96.0 % 03/19/2021 10:22:53 PAIN LEVEL 0.0 {score} 03/19/2021 10:23:17 BODY TEMPERATURE 97.6 [degF] 03/19/2021 13:00:22 OXYGEN SATURATION 97.0 % 03/19/2021 13:00:22 RESPIRATION RATE 18.0 /min 03/19/2021 13:00:31 INTRAVASCULAR SYSTOLIC 128.0 mm[Hg] 03/19/2021 13:00: 31 INTRAVASCULAR DIASTOLIC 70.0 mm[Hg] 03/19/2021 13:00 :31 HEART BEAT 77.0 {beats}/min 03/19/2021 13:00:31 BODY TEMPERATURE 97.5 [degF] 03/19/2021 17:33:41 OXYGEN SATURATION 97.0 % 03/19/2021 17:33:41 RESPIRATION RATE 18.0 /min 03/19/2021 17:34:07 INTRAVASCULAR SYSTOLIC 126.0 mm[Hg] 03/19/2021 17:34: 07 INTRAVASCULAR DIASTOLIC 72.0 mm[Hg] 03/19/2021 17:34 :07 HEART BEAT 78.0 {beats}/min 03/19/2021 17:34:07 RESPIRATION RATE 18.0 /min 03/19/2021 18:02:46 OXYGEN SATURATION 97.0 % 03/19/2021 18:02:46 PAIN LEVEL 0.0 {score} 03/19/2021 18:03:45 PAIN LEVEL 0.0 {score} 03/20/2021 1:16:24 BODY TEMPERATURE 97.9 [degF] 03/20/2021 4:14:10 OXYGEN SATURATION 96.0 % 03/20/2021 4:14:10 RESPIRATION RATE 20.0 /min 03/20/2021 4:14:28 HEART BEAT 80.0 {beats}/min 03/20/2021 4:14:28 BODY TEMPERATURE 97.2 [degF] 03/20/2021 11:00:07 OXYGEN SATURATION 97.0 % 03/20/2021 11:00:07 RESPIRATION RATE 18.0 /min 03/20/2021 11:00:46 INTRAVASCULAR SYSTOLIC 122.0 mm[Hg] 03/20/2021 11:00: 46 INTRAVASCULAR DIASTOLIC 68.0 mm[Hg] 03/20/2021 11:00 :46 HEART BEAT 77.0 {beats}/min 03/20/2021 11:00:46 RESPIRATION RATE 18.0 /min 03/20/2021 11:01:13 OXYGEN SATURATION 97.0 % 03/20/2021 11:01:13 PAIN LEVEL 0.0 {score} 03/20/2021 11:01:35 BODY TEMPERATURE 97.3 [degF] 03/20/2021 13:39:46 OXYGEN SATURATION 96.0 % 03/20/2021 13:39:46 PAIN LEVEL 5.0 {score} 03/20/2021 18:51:37 PAIN LEVEL 3.0 {score} 03/20/2021 19:52:35 BODY TEMPERATURE 97.3 [degF] 03/20/2021 21:21:00 HEART BEAT 77.0 {beats}/min 03/20/2021 21:21:00 RESPIRATION RATE 18.0 /min 03/20/2021 21:21:00 INTRAVASCULAR SYSTOLIC 122.0 mm[Hg] 03/20/2021 21:21: 00 INTRAVASCULAR DIASTOLIC 68.0 mm[Hg] 03/20/2021 21:21 :00 OXYGEN SATURATION 96.0 % 03/20/2021 21:21:00 PAIN LEVEL 0.0 {score} 03/20/2021 23:31:06 BODY TEMPERATURE 98.0 [degF] 03/20/2021 23:31:20 OXYGEN SATURATION 95.0 % 03/20/2021 23:31:20 BODY TEMPERATURE 98.0 [degF] 03/20/2021 23:32:03 OXYGEN SATURATION 95.0 % 03/20/2021 23:32:03 RESPIRATION RATE 18.0 /min 03/20/2021 23:32:17 INTRAVASCULAR SYSTOLIC 119.0 mm[Hg] 03/20/2021 23:32: 17 INTRAVASCULAR DIASTOLIC 77.0 mm[Hg] 03/20/2021 23:32 :17 HEART BEAT 84.0 {beats}/min 03/20/2021 23:32:17 PAIN LEVEL 0.0 {score} 03/21/2021 1:27:14 PAIN LEVEL 0.0 {score} 03/21/2021 7:53:43 BODY TEMPERATURE 97.9 [degF] 03/21/2021 10:12:11 OXYGEN SATURATION 96.0 % 03/21/2021 10:12:11 RESPIRATION RATE 18.0 /min 03/21/2021 10:13:54 INTRAVASCULAR SYSTOLIC 108.0 mm[Hg] 03/21/2021 10:13: 54 INTRAVASCULAR DIASTOLIC 71.0 mm[Hg] 03/21/2021 10:13 :54 HEART BEAT 85.0 {beats}/min 03/21/2021 10:13:54 RESPIRATION RATE 18.0 /min 03/21/2021 10:14:24 OXYGEN SATURATION 96.0 % 03/21/2021 10:14:24 PAIN LEVEL 0.0 {score} 03/21/2021 10:15:27 BODY TEMPERATURE 97.6 [degF] 03/21/2021 13:01:52 OXYGEN SATURATION 98.0 % 03/21/2021 13:01:52 BODY TEMPERATURE 98.6 [degF] 03/21/2021 14:59:00 HEART BEAT 83.0 {beats}/min 03/21/2021 14:59:00 RESPIRATION RATE 18.0 /min 03/21/2021 14:59:00 INTRAVASCULAR SYSTOLIC 113.0 mm[Hg] 03/21/2021 14:59: 00 INTRAVASCULAR DIASTOLIC 72.0 mm[Hg] 03/21/2021 14:59 :00 OXYGEN SATURATION 98.0 % 03/21/2021 14:59:00 BODY TEMPERATURE 98.6 [degF] 03/21/2021 16:01:51 OXYGEN SATURATION 97.0 % 03/21/2021 16:01:51 RESPIRATION RATE 18.0 /min 03/21/2021 16:02:09 INTRAVASCULAR SYSTOLIC 113.0 mm[Hg] 03/21/2021 16:02: 09 INTRAVASCULAR DIASTOLIC 72.0 mm[Hg] 03/21/2021 16:02 :09 HEART BEAT 83.0 {beats}/min 03/21/2021 16:02:09 RESPIRATION RATE 18.0 /min 03/21/2021 16:05:52 OXYGEN SATURATION 98.0 % 03/21/2021 16:05:52 PAIN LEVEL 0.0 {score} 03/21/2021 16:06:08 BODY TEMPERATURE 98.6 [degF] 03/21/2021 20:20:00 HEART BEAT 83.0 {beats}/min 03/21/2021 20:20:00 RESPIRATION RATE 18.0 /min 03/21/2021 20:20:00 INTRAVASCULAR SYSTOLIC 113.0 mm[Hg] 03/21/2021 20:20: 00 INTRAVASCULAR DIASTOLIC 72.0 mm[Hg] 03/21/2021 20:20 :00 OXYGEN SATURATION 98.0 % 03/21/2021 20:20:00 RESPIRATION RATE 20.0 /min 03/22/2021 0:09:00 PAIN LEVEL 0.0 {score} 03/22/2021 2:14:23 PAIN LEVEL 0.0 {score} 03/22/2021 8:56:12 PAIN LEVEL 0.0 {score} 03/22/2021 11:55:06 BODY TEMPERATURE 98.4 [degF] 03/22/2021 11:55:45 OXYGEN SATURATION 97.0 % 03/22/2021 11:55:45 RESPIRATION RATE 18.0 /min 03/22/2021 11:56:00 INTRAVASCULAR SYSTOLIC 127.0 mm[Hg] 03/22/2021 11:56: 00 INTRAVASCULAR DIASTOLIC 68.0 mm[Hg] 03/22/2021 11:56 :00 HEART BEAT 79.0 {beats}/min 03/22/2021 11:56:00 BODY TEMPERATURE 97.4 [degF] 03/22/2021 14:18:05 OXYGEN SATURATION 97.0 % 03/22/2021 14:18:05 PAIN LEVEL 0.0 {score} 03/22/2021 18:06:06 PAIN LEVEL 7.0 {score} 03/22/2021 21:26:26 PAIN LEVEL 0.0 {score} 03/22/2021 22:17:34 PAIN LEVEL 0.0 {score} 03/23/2021 2:25:47 PAIN LEVEL 0.0 {score} 03/23/2021 7:48:31 BODY TEMPERATURE 97.6 [degF] 03/23/2021 10:55:56 OXYGEN SATURATION 97.0 % 03/23/2021 10:55:56 RESPIRATION RATE 18.0 /min 03/23/2021 10:56:10 INTRAVASCULAR SYSTOLIC 132.0 mm[Hg] 03/23/2021 10:56: 10 INTRAVASCULAR DIASTOLIC 70.0 mm[Hg] 03/23/2021 10:56 :10 HEART BEAT 77.0 {beats}/min 03/23/2021 10:56:10 RESPIRATION RATE 18.0 /min 03/23/2021 10:56:28 OXYGEN SATURATION 96.0 % 03/23/2021 10:56:28 PAIN LEVEL 0.0 {score} 03/23/2021 10:59:09 BODY TEMPERATURE 97.2 [degF] 03/23/2021 12:51:22 OXYGEN SATURATION 97.0 % 03/23/2021 12:51:22 PAIN LEVEL 0.0 {score} 03/23/2021 21:43:23 PAIN LEVEL 0.0 {score} 03/23/2021 22:25:03 PAIN LEVEL 0.0 {score} 03/23/2021 22:57:46 PAIN LEVEL 0.0 {score} 03/24/2021 4:11:44 PAIN LEVEL 0.0 {score} 03/24/2021 8:49:57 PAIN LEVEL 0.0 {score} 03/24/2021 10:23:02 BODY TEMPERATURE 97.4 [degF] 03/24/2021 10:38:29 OXYGEN SATURATION 97.0 % 03/24/2021 10:38:29 RESPIRATION RATE 18.0 /min 03/24/2021 10:38:53 INTRAVASCULAR SYSTOLIC 130.0 mm[Hg] 03/24/2021 10:38: 53 INTRAVASCULAR DIASTOLIC 70.0 mm[Hg] 03/24/2021 10:38 :53 HEART BEAT 76.0 {beats}/min 03/24/2021 10:38:53 BODY TEMPERATURE 97.6 [degF] 03/24/2021 12:31:10 OXYGEN SATURATION 97.0 % 03/24/2021 12:31:10 PAIN LEVEL 0.0 {score} 03/24/2021 15:47:55 RESPIRATION RATE 18.0 /min 03/24/2021 16:33:31 INTRAVASCULAR SYSTOLIC 146.0 mm[Hg] 03/24/2021 16:33: 31 INTRAVASCULAR DIASTOLIC 85.0 mm[Hg] 03/24/2021 16:33 :31 HEART BEAT 97.0 {beats}/min 03/24/2021 16:33:31 BODY TEMPERATURE 97.8 [degF] 03/24/2021 16:33:58 OXYGEN SATURATION 97.0 % 03/24/2021 16:33:58 BODY TEMPERATURE 97.8 [degF] 03/24/2021 20:15:47 OXYGEN SATURATION 97.0 % 03/24/2021 20:15:47 PAIN LEVEL 0.0 {score} 03/25/2021 1:33:40 PAIN LEVEL 0.0 {score} 03/25/2021 7:13:52 PAIN LEVEL 0.0 {score} 03/25/2021 8:51:30 BODY TEMPERATURE 97.0 [degF] 03/25/2021 10:12:50 OXYGEN SATURATION 97.0 % 03/25/2021 10:12:50 RESPIRATION RATE 18.0 /min 03/25/2021 10:13:06 INTRAVASCULAR SYSTOLIC 133.0 mm[Hg] 03/25/2021 10:13: 06 INTRAVASCULAR DIASTOLIC 85.0 mm[Hg] 03/25/2021 10:13 :06 HEART BEAT 96.0 {beats}/min 03/25/2021 10:13:06 BODY TEMPERATURE 97.0 [degF] 03/25/2021 14:11:51 OXYGEN SATURATION 97.0 % 03/25/2021 14:11:51 PAIN LEVEL 0.0 {score} 03/25/2021 15:05:18 INTRAVASCULAR SYSTOLIC 140.0 mm[Hg] 03/25/2021 15:58: 00 INTRAVASCULAR DIASTOLIC 85.0 mm[Hg] 03/25/2021 15:58 :00 BODY TEMPERATURE 97.4 [degF] 03/25/2021 15:58:00 HEART BEAT 94.0 {beats}/min 03/25/2021 15:58:00 RESPIRATION RATE 18.0 /min 03/25/2021 15:58:00 OXYGEN SATURATION 96.0 % 03/25/2021 15:58:00 RESPIRATION RATE 18.0 /min 03/25/2021 15:58:35 INTRAVASCULAR SYSTOLIC 140.0 mm[Hg] 03/25/2021 15:58: 35 INTRAVASCULAR DIASTOLIC 85.0 mm[Hg] 03/25/2021 15:58 :35 HEART BEAT 94.0 {beats}/min 03/25/2021 15:58:35 BODY TEMPERATURE 97.4 [degF] 03/25/2021 16:02:08 OXYGEN SATURATION 96.0 % 03/25/2021 16:02:08 BODY TEMPERATURE 97.7 [degF] 03/26/2021 0:17:34 OXYGEN SATURATION 97.0 % 03/26/2021 0:17:34 PAIN LEVEL 0.0 {score} 03/26/2021 0:17:53 RESPIRATION RATE 18.0 /min 03/26/2021 0:18:03 INTRAVASCULAR SYSTOLIC 131.0 mm[Hg] 03/26/2021 0:18:0 3 INTRAVASCULAR DIASTOLIC 82.0 mm[Hg] 03/26/2021 0:18: 03 HEART BEAT 82.0 {beats}/min 03/26/2021 0:18:03 BODY TEMPERATURE 97.7 [degF] 03/26/2021 5:05:10 OXYGEN SATURATION 97.0 % 03/26/2021 5:05:10 PAIN LEVEL 0.0 {score} 03/26/2021 8:18:56 PAIN LEVEL 0.0 {score} 03/26/2021 9:02:15 BODY TEMPERATURE 98.0 [degF] 03/26/2021 11:57:46 OXYGEN SATURATION 97.0 % 03/26/2021 11:57:46 RESPIRATION RATE 18.0 /min 03/26/2021 11:57:57 INTRAVASCULAR SYSTOLIC 130.0 mm[Hg] 03/26/2021 11:57: 57 INTRAVASCULAR DIASTOLIC 80.0 mm[Hg] 03/26/2021 11:57 :57 HEART BEAT 84.0 {beats}/min 03/26/2021 11:57:57 BODY TEMPERATURE 98.0 [degF] 03/26/2021 12:04:18 OXYGEN SATURATION 97.0 % 03/26/2021 12:04:18 PAIN LEVEL 0.0 {score} 03/26/2021 16:10:23 BODY TEMPERATURE 97.8 [degF] 03/26/2021 16:11:02 OXYGEN SATURATION 97.0 % 03/26/2021 16:11:02 PAIN LEVEL 8.0 {score} 03/26/2021 20:58:29 PAIN LEVEL 0.0 {score} 03/26/2021 22:31:42 PAIN LEVEL 0.0 {score} 03/27/2021 0:18:02 RESPIRATION RATE 18.0 /min 03/27/2021 2:29:00 INTRAVASCULAR SYSTOLIC 131.0 mm[Hg] 03/27/2021 2:29:0 0 INTRAVASCULAR DIASTOLIC 75.0 mm[Hg] 03/27/2021 2:29: 00 HEART BEAT 80.0 {beats}/min 03/27/2021 2:29:00 BODY TEMPERATURE 97.4 [degF] 03/27/2021 4:36:50 OXYGEN SATURATION 98.0 % 03/27/2021 4:36:50 PAIN LEVEL 0.0 {score} 03/27/2021 8:00:16 BODY TEMPERATURE 97.1 [degF] 03/27/2021 8:05:34 OXYGEN SATURATION 97.0 % 03/27/2021 8:05:34 RESPIRATION RATE 18.0 /min 03/27/2021 8:05:56 INTRAVASCULAR SYSTOLIC 118.0 mm[Hg] 03/27/2021 8:05:5 6 INTRAVASCULAR DIASTOLIC 79.0 mm[Hg] 03/27/2021 8:05: 56 HEART BEAT 86.0 {beats}/min 03/27/2021 8:05:56 PAIN LEVEL 0.0 {score} 03/27/2021 8:06:37 BODY TEMPERATURE 97.6 [degF] 03/27/2021 12:56:24 OXYGEN SATURATION 98.0 % 03/27/2021 12:56:24 PAIN LEVEL 0.0 {score} 03/27/2021 19:51:29 INTRAVASCULAR SYSTOLIC 136.0 mm[Hg] 03/27/2021 20:12: 00 INTRAVASCULAR DIASTOLIC 87.0 mm[Hg] 03/27/2021 20:12 :00 BODY TEMPERATURE 97.0 [degF] 03/27/2021 20:12:00 HEART BEAT 95.0 {beats}/min 03/27/2021 20:12:00 RESPIRATION RATE 18.0 /min 03/27/2021 20:12:00 OXYGEN SATURATION 99.0 % 03/27/2021 20:12:00 PAIN LEVEL 0.0 {score} 03/27/2021 20:12:00 BODY TEMPERATURE 97.0 [degF] 03/27/2021 21:37:00 HEART BEAT 95.0 {beats}/min 03/27/2021 21:37:00 RESPIRATION RATE 18.0 /min 03/27/2021 21:37:00 INTRAVASCULAR SYSTOLIC 136.0 mm[Hg] 03/27/2021 21:37: 00 INTRAVASCULAR DIASTOLIC 87.0 mm[Hg] 03/27/2021 21:37 :00 OXYGEN SATURATION 99.0 % 03/27/2021 21:37:00 PAIN LEVEL 7.0 {score} 03/27/2021 21:41:19 PAIN LEVEL 0.0 {score} 03/27/2021 22:28:39 PAIN LEVEL 0.0 {score} 03/27/2021 23:32:28 BODY TEMPERATURE 97.5 [degF] 03/28/2021 5:19:20 OXYGEN SATURATION 100.0 % 03/28/2021 5:19:20 BODY TEMPERATURE 97.5 [degF] 03/28/2021 5:19:39 OXYGEN SATURATION 100.0 % 03/28/2021 5:19:39 RESPIRATION RATE 18.0 /min 03/28/2021 5:19:51 INTRAVASCULAR SYSTOLIC 120.0 mm[Hg] 03/28/2021 5:19:5 1 INTRAVASCULAR DIASTOLIC 75.0 mm[Hg] 03/28/2021 5:19: 51 HEART BEAT 74.0 {beats}/min 03/28/2021 5:19:51 PAIN LEVEL 0.0 {score} 03/28/2021 9:23:27 PAIN LEVEL 0.0 {score} 03/28/2021 10:16:15 BODY TEMPERATURE 97.6 [degF] 03/28/2021 11:03:22 OXYGEN SATURATION 100.0 % 03/28/2021 11:03:22 RESPIRATION RATE 18.0 /min 03/28/2021 11:03:33 INTRAVASCULAR SYSTOLIC 135.0 mm[Hg] 03/28/2021 11:03: 33 INTRAVASCULAR DIASTOLIC 98.0 mm[Hg] 03/28/2021 11:03 :33 HEART BEAT 89.0 {beats}/min 03/28/2021 11:03:33 BODY TEMPERATURE 97.8 [degF] 03/28/2021 12:31:55 OXYGEN SATURATION 100.0 % 03/28/2021 12:31:55 PAIN LEVEL 9.0 {score} 03/28/2021 19:38:04 PAIN LEVEL 0.0 {score} 03/28/2021 21:13:44 PAIN LEVEL 0.0 {score} 03/28/2021 21:25:56 BODY TEMPERATURE 97.5 [degF] 03/28/2021 21:41:00 HEART BEAT 104.0 {beats}/min 03/28/2021 21:41:00 RESPIRATION RATE 20.0 /min 03/28/2021 21:41:00 INTRAVASCULAR SYSTOLIC 142.0 mm[Hg] 03/28/2021 21:41: 00 INTRAVASCULAR DIASTOLIC 77.0 mm[Hg] 03/28/2021 21:41 :00 OXYGEN SATURATION 95.0 % 03/28/2021 21:41:00 PAIN LEVEL 0.0 {score} 03/29/2021 6:05:53 RESPIRATION RATE 18.0 /min 03/29/2021 6:06:36 PAIN LEVEL 0.0 {score} 03/29/2021 7:22:42 BODY TEMPERATURE 97.4 [degF] 03/29/2021 9:21:57 OXYGEN SATURATION 98.0 % 03/29/2021 9:21:57 RESPIRATION RATE 18.0 /min 03/29/2021 9:22:18 INTRAVASCULAR SYSTOLIC 154.0 mm[Hg] 03/29/2021 9:22:1 8 INTRAVASCULAR DIASTOLIC 90.0 mm[Hg] 03/29/2021 9:22: 18 HEART BEAT 84.0 {beats}/min 03/29/2021 9:22:18 PAIN LEVEL 0.0 {score} 03/29/2021 9:22:55 BODY WEIGHT (MEASURED) 370.8 [lb_av] 03/29/2021 11:00: 00 BODY TEMPERATURE 97.6 [degF] 03/29/2021 12:14:46 OXYGEN SATURATION 98.0 % 03/29/2021 12:14:46 RESPIRATION RATE 18.0 /min 03/29/2021 15:41:36 INTRAVASCULAR SYSTOLIC 118.0 mm[Hg] 03/29/2021 15:41: 36 INTRAVASCULAR DIASTOLIC 82.0 mm[Hg] 03/29/2021 15:41 :36 HEART BEAT 99.0 {beats}/min 03/29/2021 15:41:36 PAIN LEVEL 0.0 {score} 03/29/2021 15:42:19 BODY TEMPERATURE 97.7 [degF] 03/29/2021 17:17:11 OXYGEN SATURATION 97.0 % 03/29/2021 17:17:11 PAIN LEVEL 8.0 {score} 03/29/2021 21:23:07 BODY TEMPERATURE 97.7 [degF] 03/29/2021 21:50:00 HEART BEAT 99.0 {beats}/min 03/29/2021 21:50:00 RESPIRATION RATE 18.0 /min 03/29/2021 21:50:00 INTRAVASCULAR SYSTOLIC 118.0 mm[Hg] 03/29/2021 21:50: 00 INTRAVASCULAR DIASTOLIC 82.0 mm[Hg] 03/29/2021 21:50 :00 OXYGEN SATURATION 97.0 % 03/29/2021 21:50:00 PAIN LEVEL 0.0 {score} 03/29/2021 22:52:55 BODY TEMPERATURE 97.7 [degF] 03/29/2021 23:07:03 OXYGEN SATURATION 97.0 % 03/29/2021 23:07:03 PAIN LEVEL 0.0 {score} 03/30/2021 0:16:29 BODY TEMPERATURE 97.7 [degF] 03/30/2021 2:45:45 OXYGEN SATURATION 97.0 % 03/30/2021 2:45:45 RESPIRATION RATE 18.0 /min 03/30/2021 2:45:53 HEART BEAT 99.0 {beats}/min 03/30/2021 2:45:53 BODY TEMPERATURE 97.2 [degF] 03/30/2021 6:04:32 OXYGEN SATURATION 98.0 % 03/30/2021 6:04:32 PAIN LEVEL 0.0 {score} 03/30/2021 8:40:09 PAIN LEVEL 0.0 {score} 03/30/2021 11:27:03 BODY TEMPERATURE 97.8 [degF] 03/30/2021 14:12:02 OXYGEN SATURATION 97.0 % 03/30/2021 14:12:02 RESPIRATION RATE 18.0 /min 03/30/2021 14:12:38 INTRAVASCULAR SYSTOLIC 160.0 mm[Hg] 03/30/2021 14:12: 38 INTRAVASCULAR DIASTOLIC 55.0 mm[Hg] 03/30/2021 14:12 :38 HEART BEAT 71.0 {beats}/min 03/30/2021 14:12:38 RESPIRATION RATE 18.0 /min 03/30/2021 14:13:30 PAIN LEVEL 0.0 {score} 03/30/2021 18:56:42 PAIN LEVEL 8.0 {score} 03/30/2021 21:11:59 BODY TEMPERATURE 97.6 [degF] 03/30/2021 21:52:32 OXYGEN SATURATION 97.0 % 03/30/2021 21:52:32 RESPIRATION RATE 18.0 /min 03/30/2021 21:52:41 INTRAVASCULAR SYSTOLIC 152.0 mm[Hg] 03/30/2021 21:52: 41 INTRAVASCULAR DIASTOLIC 65.0 mm[Hg] 03/30/2021 21:52 :41 HEART BEAT 72.0 {beats}/min 03/30/2021 21:52:41 RESPIRATION RATE 18.0 /min 03/30/2021 21:53:12 OXYGEN SATURATION 97.0 % 03/30/2021 21:53:12 PAIN LEVEL 0.0 {score} 03/30/2021 23:17:03 PAIN LEVEL 0.0 {score} 03/30/2021 23:40:18 BODY TEMPERATURE 97.6 [degF] 03/31/2021 2:05:57 OXYGEN SATURATION 97.0 % 03/31/2021 2:05:57 BODY TEMPERATURE 97.6 [degF] 03/31/2021 6:02:14 OXYGEN SATURATION 97.0 % 03/31/2021 6:02:14 RESPIRATION RATE 18.0 /min 03/31/2021 6:02:22 BODY TEMPERATURE 98.9 [degF] 03/31/2021 9:39:00 OXYGEN SATURATION 97.0 % 03/31/2021 9:39:00 RESPIRATION RATE 18.0 /min 03/31/2021 10:40:16 INTRAVASCULAR SYSTOLIC 121.0 mm[Hg] 03/31/2021 10:40: 16 INTRAVASCULAR DIASTOLIC 75.0 mm[Hg] 03/31/2021 10:40 :16 HEART BEAT 91.0 {beats}/min 03/31/2021 10:40:16 BODY TEMPERATURE 97.7 [degF] 03/31/2021 13:23:00 OXYGEN SATURATION 98.0 % 03/31/2021 13:23:00 PAIN LEVEL 0.0 {score} 03/31/2021 14:23:32 RESPIRATION RATE 18.0 /min 03/31/2021 15:40:59 OXYGEN SATURATION 98.0 % 03/31/2021 15:40:59 BODY TEMPERATURE 98.1 [degF] 03/31/2021 16:29:25 OXYGEN SATURATION 97.0 % 03/31/2021 16:29:25 PAIN LEVEL 0.0 {score} 03/31/2021 16:29:44 BODY TEMPERATURE 97.8 [degF] 03/31/2021 19:45:00 HEART BEAT 80.0 {beats}/min 03/31/2021 19:45:00 RESPIRATION RATE 20.0 /min 03/31/2021 19:45:00 INTRAVASCULAR SYSTOLIC 120.0 mm[Hg] 03/31/2021 19:45: 00 INTRAVASCULAR DIASTOLIC 85.0 mm[Hg] 03/31/2021 19:45 :00 OXYGEN SATURATION 96.0 % 03/31/2021 19:45:00 BODY TEMPERATURE 97.9 [degF] 03/31/2021 20:09:50 OXYGEN SATURATION 96.0 % 03/31/2021 20:09:50 RESPIRATION RATE 20.0 /min 03/31/2021 20:10:16 INTRAVASCULAR SYSTOLIC 120.0 mm[Hg] 03/31/2021 20:10: 16 INTRAVASCULAR DIASTOLIC 85.0 mm[Hg] 03/31/2021 20:10 :16 HEART BEAT 80.0 {beats}/min 03/31/2021 20:10:16 PAIN LEVEL 0.0 {score} 04/01/2021 1:46:05 PAIN LEVEL 0.0 {score} 04/01/2021 9:11:07 BODY TEMPERATURE 97.7 [degF] 04/01/2021 9:46:00 OXYGEN SATURATION 97.0 % 04/01/2021 9:46:00 BODY TEMPERATURE 98.1 [degF] 04/01/2021 13:47:08 OXYGEN SATURATION 97.0 % 04/01/2021 13:47:08 PAIN LEVEL 0.0 {score} 04/01/2021 13:47:50 RESPIRATION RATE 18.0 /min 04/01/2021 13:48:10 OXYGEN SATURATION 96.0 % 04/01/2021 13:48:10 RESPIRATION RATE 18.0 /min 04/01/2021 13:48:27 INTRAVASCULAR SYSTOLIC 125.0 mm[Hg] 04/01/2021 13:48: 27 INTRAVASCULAR DIASTOLIC 76.0 mm[Hg] 04/01/2021 13:48 :27 HEART BEAT 79.0 {beats}/min 04/01/2021 13:48:27 BODY TEMPERATURE 97.6 [degF] 04/01/2021 17:02:00 OXYGEN SATURATION 97.0 % 04/01/2021 17:02:00 BODY TEMPERATURE 97.6 [degF] 04/01/2021 17:55:00 HEART BEAT 86.0 {beats}/min 04/01/2021 17:55:00 RESPIRATION RATE 16.0 /min 04/01/2021 17:55:00 INTRAVASCULAR SYSTOLIC 140.0 mm[Hg] 04/01/2021 17:55: 00 INTRAVASCULAR DIASTOLIC 84.0 mm[Hg] 04/01/2021 17:55 :00 OXYGEN SATURATION 97.0 % 04/01/2021 17:55:00 RESPIRATION RATE 16.0 /min 04/01/2021 19:02:35 INTRAVASCULAR SYSTOLIC 140.0 mm[Hg] 04/01/2021 19:02: 35 INTRAVASCULAR DIASTOLIC 84.0 mm[Hg] 04/01/2021 19:02 :35 HEART BEAT 86.0 {beats}/min 04/01/2021 19:02:35 PAIN LEVEL 0.0 {score} 04/01/2021 19:03:05 PAIN LEVEL 0.0 {score} 04/01/2021 23:55:03 BODY TEMPERATURE 97.7 [degF] 04/02/2021 2:05:02 OXYGEN SATURATION 97.0 % 04/02/2021 2:05:02 RESPIRATION RATE 22.0 /min 04/02/2021 2:05:12 INTRAVASCULAR SYSTOLIC 118.0 mm[Hg] 04/02/2021 2:05:1 2 INTRAVASCULAR DIASTOLIC 63.0 mm[Hg] 04/02/2021 2:05: 12 HEART BEAT 82.0 {beats}/min 04/02/2021 2:05:12 BODY TEMPERATURE 97.7 [degF] 04/02/2021 4:48:27 OXYGEN SATURATION 97.0 % 04/02/2021 4:48:27 PAIN LEVEL 0.0 {score} 04/02/2021 8:20:17 PAIN LEVEL 0.0 {score} 04/02/2021 9:29:19 BODY TEMPERATURE 98.0 [degF] 04/02/2021 10:11:08 OXYGEN SATURATION 97.0 % 04/02/2021 10:11:08 RESPIRATION RATE 20.0 /min 04/02/2021 10:11:21 INTRAVASCULAR SYSTOLIC 120.0 mm[Hg] 04/02/2021 10:11: 21 INTRAVASCULAR DIASTOLIC 68.0 mm[Hg] 04/02/2021 10:11 :21 HEART BEAT 80.0 {beats}/min 04/02/2021 10:11:21 BODY TEMPERATURE 98.0 [degF] 04/02/2021 12:20:36 OXYGEN SATURATION 97.0 % 04/02/2021 12:20:36 PAIN LEVEL 0.0 {score} 04/02/2021 15:59:17 BODY TEMPERATURE 97.0 [degF] 04/02/2021 17:58:19 OXYGEN SATURATION 98.0 % 04/02/2021 17:58:19 RESPIRATION RATE 18.0 /min 04/02/2021 17:58:36 INTRAVASCULAR SYSTOLIC 136.0 mm[Hg] 04/02/2021 17:58: 36 INTRAVASCULAR DIASTOLIC 88.0 mm[Hg] 04/02/2021 17:58 :36 HEART BEAT 104.0 {beats}/min 04/02/2021 17:58:36 PAIN LEVEL 10.0 {score} 04/02/2021 19:46:29 BODY TEMPERATURE 97.0 [degF] 04/02/2021 20:17:54 OXYGEN SATURATION 98.0 % 04/02/2021 20:17:54 PAIN LEVEL 0.0 {score} 04/02/2021 20:19:44 BODY TEMPERATURE 97.6 [degF] 04/03/2021 5:57:00 OXYGEN SATURATION 97.0 % 04/03/2021 5:57:00 BODY TEMPERATURE 97.6 [degF] 04/03/2021 7:00:13 OXYGEN SATURATION 97.0 % 04/03/2021 7:00:13 PAIN LEVEL 6.0 {score} 04/03/2021 7:09:18 RESPIRATION RATE 18.0 /min 04/03/2021 7:09:30 INTRAVASCULAR SYSTOLIC 115.0 mm[Hg] 04/03/2021 7:09:3 0 INTRAVASCULAR DIASTOLIC 66.0 mm[Hg] 04/03/2021 7:09: 30 HEART BEAT 78.0 {beats}/min 04/03/2021 7:09:30 PAIN LEVEL 0.0 {score} 04/03/2021 7:35:14 BODY TEMPERATURE 97.8 [degF] 04/03/2021 8:46:39 OXYGEN SATURATION 96.0 % 04/03/2021 8:46:39 RESPIRATION RATE 18.0 /min 04/03/2021 8:46:55 INTRAVASCULAR SYSTOLIC 122.0 mm[Hg] 04/03/2021 8:46:5 5 INTRAVASCULAR DIASTOLIC 74.0 mm[Hg] 04/03/2021 8:46: 55 HEART BEAT 90.0 {beats}/min 04/03/2021 8:46:55 PAIN LEVEL 0.0 {score} 04/03/2021 8:47:33 BODY TEMPERATURE 98.0 [degF] 04/03/2021 12:09:29 OXYGEN SATURATION 96.0 % 04/03/2021 12:09:29 RESPIRATION RATE 18.0 /min 04/03/2021 14:42:18 INTRAVASCULAR SYSTOLIC 122.0 mm[Hg] 04/03/2021 14:42: 18 INTRAVASCULAR DIASTOLIC 78.0 mm[Hg] 04/03/2021 14:42 :18 HEART BEAT 92.0 {beats}/min 04/03/2021 14:42:18 PAIN LEVEL 0.0 {score} 04/03/2021 14:42:53 BODY TEMPERATURE 97.9 [degF] 04/03/2021 17:00:09 OXYGEN SATURATION 93.0 % 04/03/2021 17:00:09 BODY TEMPERATURE 97.9 [degF] 04/03/2021 21:43:00 HEART BEAT 92.0 {beats}/min 04/03/2021 21:43:00 RESPIRATION RATE 18.0 /min 04/03/2021 21:43:00 INTRAVASCULAR SYSTOLIC 122.0 mm[Hg] 04/03/2021 21:43: 00 INTRAVASCULAR DIASTOLIC 78.0 mm[Hg] 04/03/2021 21:43 :00 OXYGEN SATURATION 93.0 % 04/03/2021 21:43:00 PAIN LEVEL 0.0 {score} 04/04/2021 3:34:46 PAIN LEVEL 0.0 {score} 04/04/2021 9:52:11 PAIN LEVEL 0.0 {score} 04/04/2021 13:17:49 BODY TEMPERATURE 97.8 [degF] 04/04/2021 13:18:12 OXYGEN SATURATION 95.0 % 04/04/2021 13:18:12 RESPIRATION RATE 18.0 /min 04/04/2021 14:07:14 INTRAVASCULAR SYSTOLIC 132.0 mm[Hg] 04/04/2021 14:07: 14 INTRAVASCULAR DIASTOLIC 65.0 mm[Hg] 04/04/2021 14:07 :14 HEART BEAT 88.0 {beats}/min 04/04/2021 14:07:14 RESPIRATION RATE 18.0 /min 04/04/2021 14:08:10 OXYGEN SATURATION 95.0 % 04/04/2021 14:08:10 BODY TEMPERATURE 98.2 [degF] 04/04/2021 14:59:00 HEART BEAT 91.0 {beats}/min 04/04/2021 14:59:00 RESPIRATION RATE 18.0 /min 04/04/2021 14:59:00 INTRAVASCULAR SYSTOLIC 125.0 mm[Hg] 04/04/2021 14:59: 00 INTRAVASCULAR DIASTOLIC 84.0 mm[Hg] 04/04/2021 14:59 :00 OXYGEN SATURATION 96.0 % 04/04/2021 14:59:00 PAIN LEVEL 0.0 {score} 04/04/2021 16:34:09 BODY TEMPERATURE 98.2 [degF] 04/04/2021 18:44:02 OXYGEN SATURATION 96.0 % 04/04/2021 18:44:02 RESPIRATION RATE 18.0 /min 04/04/2021 18:44:41 INTRAVASCULAR SYSTOLIC 125.0 mm[Hg] 04/04/2021 18:44: 41 INTRAVASCULAR DIASTOLIC 84.0 mm[Hg] 04/04/2021 18:44 :41 HEART BEAT 91.0 {beats}/min 04/04/2021 18:44:41 BODY TEMPERATURE 97.2 [degF] 04/05/2021 6:24:27 OXYGEN SATURATION 98.0 % 04/05/2021 6:24:27 BODY TEMPERATURE 97.2 [degF] 04/05/2021 6:24:44 OXYGEN SATURATION 98.0 % 04/05/2021 6:24:44 PAIN LEVEL 0.0 {score} 04/05/2021 6:25:03 RESPIRATION RATE 20.0 /min 04/05/2021 6:25:15 INTRAVASCULAR SYSTOLIC 117.0 mm[Hg] 04/05/2021 6:25:1 5 INTRAVASCULAR DIASTOLIC 66.0 mm[Hg] 04/05/2021 6:25: 15 HEART BEAT 83.0 {beats}/min 04/05/2021 6:25:15 PAIN LEVEL 0.0 {score} 04/05/2021 8:37:36 PAIN LEVEL 0.0 {score} 04/05/2021 10:28:41 BODY TEMPERATURE 97.3 [degF] 04/05/2021 10:30:06 OXYGEN SATURATION 98.0 % 04/05/2021 10:30:06 RESPIRATION RATE 19.0 /min 04/05/2021 12:46:57 INTRAVASCULAR SYSTOLIC 122.0 mm[Hg] 04/05/2021 12:46: 57 INTRAVASCULAR DIASTOLIC 74.0 mm[Hg] 04/05/2021 12:46 :57 HEART BEAT 84.0 {beats}/min 04/05/2021 12:46:57 BODY TEMPERATURE 97.6 [degF] 04/05/2021 21:54:55 OXYGEN SATURATION 97.0 % 04/05/2021 21:54:55 PAIN LEVEL 0.0 {score} 04/05/2021 21:55:08 BODY TEMPERATURE 97.6 [degF] 04/05/2021 21:55:23 OXYGEN SATURATION 97.0 % 04/05/2021 21:55:23 RESPIRATION RATE 20.0 /min 04/05/2021 21:55:33 INTRAVASCULAR SYSTOLIC 128.0 mm[Hg] 04/05/2021 21:55: 33 INTRAVASCULAR DIASTOLIC 72.0 mm[Hg] 04/05/2021 21:55 :33 HEART BEAT 79.0 {beats}/min 04/05/2021 21:55:33 PAIN LEVEL 0.0 {score} 04/05/2021 23:57:09 BODY TEMPERATURE 97.6 [degF] 04/06/2021 4:32:43 OXYGEN SATURATION 97.0 % 04/06/2021 4:32:43 BODY TEMPERATURE 97.6 [degF] 04/06/2021 4:32:53 OXYGEN SATURATION 97.0 % 04/06/2021 4:32:53 RESPIRATION RATE 18.0 /min 04/06/2021 4:33:06 HEART BEAT 79.0 {beats}/min 04/06/2021 4:33:06 PAIN LEVEL 0.0 {score} 04/06/2021 8:12:21 BODY TEMPERATURE 97.3 [degF] 04/06/2021 10:12:36 OXYGEN SATURATION 97.0 % 04/06/2021 10:12:36 RESPIRATION RATE 18.0 /min 04/06/2021 10:12:48 INTRAVASCULAR SYSTOLIC 113.0 mm[Hg] 04/06/2021 10:12: 48 INTRAVASCULAR DIASTOLIC 76.0 mm[Hg] 04/06/2021 10:12 :48 HEART BEAT 86.0 {beats}/min 04/06/2021 10:12:48 RESPIRATION RATE 18.0 /min 04/06/2021 10:13:33 OXYGEN SATURATION 97.0 % 04/06/2021 10:13:33 PAIN LEVEL 0.0 {score} 04/06/2021 10:13:56 BODY TEMPERATURE 97.8 [degF] 04/06/2021 14:10:04 OXYGEN SATURATION 97.0 % 04/06/2021 14:10:04 RESPIRATION RATE 18.0 /min 04/06/2021 15:59:43 INTRAVASCULAR SYSTOLIC 118.0 mm[Hg] 04/06/2021 15:59: 43 INTRAVASCULAR DIASTOLIC 72.0 mm[Hg] 04/06/2021 15:59 :43 HEART BEAT 88.0 {beats}/min 04/06/2021 15:59:43 RESPIRATION RATE 18.0 /min 04/06/2021 16:00:16 OXYGEN SATURATION 97.0 % 04/06/2021 16:00:16 PAIN LEVEL 0.0 {score} 04/06/2021 16:00:39 BODY TEMPERATURE 97.9 [degF] 04/06/2021 16:02:03 OXYGEN SATURATION 97.0 % 04/06/2021 16:02:03 PAIN LEVEL 7.0 {score} 04/06/2021 20:21:06 BODY TEMPERATURE 97.9 [degF] 04/06/2021 22:34:02 OXYGEN SATURATION 97.0 % 04/06/2021 22:34:02 PAIN LEVEL 2.0 {score} 04/06/2021 23:23:26 PAIN LEVEL 2.0 {score} 04/06/2021 23:39:35 PAIN LEVEL 0.0 {score} 04/07/2021 8:17:22 BODY TEMPERATURE 97.8 [degF] 04/07/2021 9:15:02 OXYGEN SATURATION 97.0 % 04/07/2021 9:15:02 RESPIRATION RATE 18.0 /min 04/07/2021 9:15:29 INTRAVASCULAR SYSTOLIC 123.0 mm[Hg] 04/07/2021 9:15:2 9 INTRAVASCULAR DIASTOLIC 79.0 mm[Hg] 04/07/2021 9:15: 29 HEART BEAT 89.0 {beats}/min 04/07/2021 9:15:29 PAIN LEVEL 0.0 {score} 04/07/2021 9:16:01 BODY TEMPERATURE 98.0 [degF] 04/07/2021 12:06:26 OXYGEN SATURATION 97.0 % 04/07/2021 12:06:26 PAIN LEVEL 0.0 {score} 04/07/2021 15:16:27 BODY TEMPERATURE 97.6 [degF] 04/07/2021 16:09:47 OXYGEN SATURATION 98.0 % 04/07/2021 16:09:47 RESPIRATION RATE 18.0 /min 04/07/2021 16:09:58 INTRAVASCULAR SYSTOLIC 132.0 mm[Hg] 04/07/2021 16:09: 58 INTRAVASCULAR DIASTOLIC 82.0 mm[Hg] 04/07/2021 16:09 :58 HEART BEAT 89.0 {beats}/min 04/07/2021 16:09:58 BODY TEMPERATURE 97.8 [degF] 04/07/2021 21:15:59 OXYGEN SATURATION 98.0 % 04/07/2021 21:15:59 PAIN LEVEL 0.0 {score} 04/07/2021 23:21:26 PAIN LEVEL 0.0 {score} 04/08/2021 7:15:37 PAIN LEVEL 0.0 {score} 04/08/2021 7:27:14 BODY TEMPERATURE 97.9 [degF] 04/08/2021 11:31:52 OXYGEN SATURATION 97.0 % 04/08/2021 11:31:52 RESPIRATION RATE 18.0 /min 04/08/2021 11:32:14 INTRAVASCULAR SYSTOLIC 130.0 mm[Hg] 04/08/2021 11:32: 14 INTRAVASCULAR DIASTOLIC 79.0 mm[Hg] 04/08/2021 11:32 :14 HEART BEAT 81.0 {beats}/min 04/08/2021 11:32:14 BODY TEMPERATURE 98.0 [degF] 04/08/2021 12:27:03 OXYGEN SATURATION 97.0 % 04/08/2021 12:27:03 RESPIRATION RATE 18.0 /min 04/08/2021 15:24:36 INTRAVASCULAR SYSTOLIC 130.0 mm[Hg] 04/08/2021 15:24: 36 INTRAVASCULAR DIASTOLIC 79.0 mm[Hg] 04/08/2021 15:24 :36 HEART BEAT 75.0 {beats}/min 04/08/2021 15:24:36 PAIN LEVEL 0.0 {score} 04/08/2021 15:25:12 BODY TEMPERATURE 98.0 [degF] 04/08/2021 16:56:27 OXYGEN SATURATION 97.0 % 04/08/2021 16:56:27 BODY TEMPERATURE 98.0 [degF] 04/08/2021 20:45:21 OXYGEN SATURATION 97.0 % 04/08/2021 20:45:21 PAIN LEVEL 0.0 {score} 04/09/2021 0:06:38 PAIN LEVEL 0.0 {score} 04/09/2021 8:00:48 BODY TEMPERATURE 97.9 [degF] 04/09/2021 10:58:23 OXYGEN SATURATION 97.0 % 04/09/2021 10:58:23 RESPIRATION RATE 18.0 /min 04/09/2021 10:58:35 OXYGEN SATURATION 97.0 % 04/09/2021 10:58:35 RESPIRATION RATE 18.0 /min 04/09/2021 10:59:27 INTRAVASCULAR SYSTOLIC 126.0 mm[Hg] 04/09/2021 10:59: 27 INTRAVASCULAR DIASTOLIC 76.0 mm[Hg] 04/09/2021 10:59 :27 HEART BEAT 78.0 {beats}/min 04/09/2021 10:59:27 PAIN LEVEL 0.0 {score} 04/09/2021 10:59:53 BODY TEMPERATURE 97.6 [degF] 04/09/2021 12:58:47 OXYGEN SATURATION 97.0 % 04/09/2021 12:58:47 RESPIRATION RATE 18.0 /min 04/09/2021 15:58:04 OXYGEN SATURATION 98.0 % 04/09/2021 15:58:04 PAIN LEVEL 0.0 {score} 04/09/2021 15:58:30 BODY TEMPERATURE 97.8 [degF] 04/09/2021 16:04:27 OXYGEN SATURATION 98.0 % 04/09/2021 16:04:27 RESPIRATION RATE 18.0 /min 04/09/2021 19:10:45 INTRAVASCULAR SYSTOLIC 143.0 mm[Hg] 04/09/2021 19:10: 45 INTRAVASCULAR DIASTOLIC 81.0 mm[Hg] 04/09/2021 19:10 :45 HEART BEAT 92.0 {beats}/min 04/09/2021 19:10:45 BODY TEMPERATURE 97.8 [degF] 04/09/2021 21:29:29 OXYGEN SATURATION 98.0 % 04/09/2021 21:29:29 BODY TEMPERATURE 97.8 [degF] 04/09/2021 22:49:00 HEART BEAT 92.0 {beats}/min 04/09/2021 22:49:00 RESPIRATION RATE 18.0 /min 04/09/2021 22:49:00 INTRAVASCULAR SYSTOLIC 143.0 mm[Hg] 04/09/2021 22:49: 00 INTRAVASCULAR DIASTOLIC 81.0 mm[Hg] 04/09/2021 22:49 :00 OXYGEN SATURATION 98.0 % 04/09/2021 22:49:00 PAIN LEVEL 0.0 {score} 04/10/2021 2:16:36 BODY TEMPERATURE 97.8 [degF] 04/10/2021 5:08:48 OXYGEN SATURATION 98.0 % 04/10/2021 5:08:48 RESPIRATION RATE 18.0 /min 04/10/2021 5:09:03 PAIN LEVEL 0.0 {score} 04/10/2021 8:27:26 BODY TEMPERATURE 97.9 [degF] 04/10/2021 10:23:58 OXYGEN SATURATION 98.0 % 04/10/2021 10:23:58 RESPIRATION RATE 18.0 /min 04/10/2021 10:24:11 INTRAVASCULAR SYSTOLIC 117.0 mm[Hg] 04/10/2021 10:24: 11 INTRAVASCULAR DIASTOLIC 83.0 mm[Hg] 04/10/2021 10:24 :11 HEART BEAT 91.0 {beats}/min 04/10/2021 10:24:11 RESPIRATION RATE 18.0 /min 04/10/2021 10:24:48 OXYGEN SATURATION 98.0 % 04/10/2021 10:24:48 PAIN LEVEL 0.0 {score} 04/10/2021 10:26:32 BODY TEMPERATURE 97.9 [degF] 04/10/2021 12:28:15 OXYGEN SATURATION 98.0 % 04/10/2021 12:28:15 BODY TEMPERATURE 97.9 [degF] 04/10/2021 14:59:00 HEART BEAT 91.0 {beats}/min 04/10/2021 14:59:00 RESPIRATION RATE 18.0 /min 04/10/2021 14:59:00 INTRAVASCULAR SYSTOLIC 117.0 mm[Hg] 04/10/2021 14:59: 00 INTRAVASCULAR DIASTOLIC 83.0 mm[Hg] 04/10/2021 14:59 :00 OXYGEN SATURATION 98.0 % 04/10/2021 14:59:00 RESPIRATION RATE 18.0 /min 04/10/2021 15:39:57 INTRAVASCULAR SYSTOLIC 118.0 mm[Hg] 04/10/2021 15:39: 57 INTRAVASCULAR DIASTOLIC 80.0 mm[Hg] 04/10/2021 15:39 :57 HEART BEAT 90.0 {beats}/min 04/10/2021 15:39:57 RESPIRATION RATE 18.0 /min 04/10/2021 15:40:56 OXYGEN SATURATION 98.0 % 04/10/2021 15:40:56 PAIN LEVEL 0.0 {score} 04/10/2021 15:41:30 BODY TEMPERATURE 97.9 [degF] 04/10/2021 16:23:51 OXYGEN SATURATION 97.0 % 04/10/2021 16:23:51 PAIN LEVEL 7.0 {score} 04/10/2021 18:51:19 PAIN LEVEL 3.0 {score} 04/10/2021 19:43:34 BODY TEMPERATURE 98.0 [degF] 04/10/2021 20:17:25 OXYGEN SATURATION 97.0 % 04/10/2021 20:17:25 PAIN LEVEL 0.0 {score} 04/10/2021 23:55:02 BODY TEMPERATURE 97.8 [degF] 04/11/2021 0:57:09 OXYGEN SATURATION 96.0 % 04/11/2021 0:57:09 RESPIRATION RATE 18.0 /min 04/11/2021 0:57:25 INTRAVASCULAR SYSTOLIC 124.0 mm[Hg] 04/11/2021 0:57:2 5 INTRAVASCULAR DIASTOLIC 60.0 mm[Hg] 04/11/2021 0:57: 25 HEART BEAT 79.0 {beats}/min 04/11/2021 0:57:25 BODY TEMPERATURE 97.8 [degF] 04/11/2021 4:35:09 OXYGEN SATURATION 96.0 % 04/11/2021 4:35:09 PAIN LEVEL 0.0 {score} 04/11/2021 7:47:57 BODY TEMPERATURE 97.7 [degF] 04/11/2021 8:46:04 OXYGEN SATURATION 97.0 % 04/11/2021 8:46:04 PAIN LEVEL 0.0 {score} 04/11/2021 9:09:34 INTRAVASCULAR SYSTOLIC 125.0 mm[Hg] 04/11/2021 13:11: 00 INTRAVASCULAR DIASTOLIC 81.0 mm[Hg] 04/11/2021 13:11 :00 BODY TEMPERATURE 97.4 [degF] 04/11/2021 13:11:00 RESPIRATION RATE 18.0 /min 04/11/2021 13:11:00 HEART BEAT 85.0 {beats}/min 04/11/2021 13:11:00 OXYGEN SATURATION 97.0 % 04/11/2021 13:11:00 PAIN LEVEL 0.0 {score} 04/11/2021 15:07:31 BODY TEMPERATURE 97.5 [degF] 04/11/2021 17:58:06 OXYGEN SATURATION 95.0 % 04/11/2021 17:58:06 RESPIRATION RATE 18.0 /min 04/11/2021 18:00:06 INTRAVASCULAR SYSTOLIC 125.0 mm[Hg] 04/11/2021 18:00: 06 INTRAVASCULAR DIASTOLIC 82.0 mm[Hg] 04/11/2021 18:00 :06 HEART BEAT 90.0 {beats}/min 04/11/2021 18:00:06 BODY TEMPERATURE 97.5 [degF] 04/12/2021 2:50:00 OXYGEN SATURATION 95.0 % 04/12/2021 2:50:00 PAIN LEVEL 0.0 {score} 04/12/2021 2:51:00 BODY TEMPERATURE 97.5 [degF] 04/12/2021 2:51:00 OXYGEN SATURATION 95.0 % 04/12/2021 2:51:00 RESPIRATION RATE 18.0 /min 04/12/2021 2:51:00 PAIN LEVEL 0.0 {score} 04/12/2021 7:23:43 PAIN LEVEL 0.0 {score} 04/12/2021 8:20:17 BODY TEMPERATURE 98.2 [degF] 04/12/2021 11:13:36 OXYGEN SATURATION 97.0 % 04/12/2021 11:13:36 RESPIRATION RATE 18.0 /min 04/12/2021 11:13:52 INTRAVASCULAR SYSTOLIC 129.0 mm[Hg] 04/12/2021 11:13: 52 INTRAVASCULAR DIASTOLIC 76.0 mm[Hg] 04/12/2021 11:13 :52 HEART BEAT 102.0 {beats}/min 04/12/2021 11:13:52 BODY TEMPERATURE 98.2 [degF] 04/12/2021 12:09:09 OXYGEN SATURATION 97.0 % 04/12/2021 12:09:09 PAIN LEVEL 0.0 {score} 04/12/2021 15:11:38 BODY TEMPERATURE 97.4 [degF] 04/12/2021 15:54:00 OXYGEN SATURATION 96.0 % 04/12/2021 15:54:00 RESPIRATION RATE 18.0 /min 04/12/2021 15:54:01 INTRAVASCULAR SYSTOLIC 134.0 mm[Hg] 04/12/2021 15:54: 01 INTRAVASCULAR DIASTOLIC 75.0 mm[Hg] 04/12/2021 15:54 :01 HEART BEAT 93.0 {beats}/min 04/12/2021 15:54:01 BODY TEMPERATURE 97.4 [degF] 04/12/2021 18:11:36 OXYGEN SATURATION 96.0 % 04/12/2021 18:11:36 BODY TEMPERATURE 97.4 [degF] 04/12/2021 20:30:25 OXYGEN SATURATION 96.0 % 04/12/2021 20:30:25 PAIN LEVEL 0.0 {score} 04/12/2021 23:53:10 BODY TEMPERATURE 97.4 [degF] 04/13/2021 6:44:16 OXYGEN SATURATION 98.0 % 04/13/2021 6:44:16 RESPIRATION RATE 18.0 /min 04/13/2021 6:44:31 HEART BEAT 79.0 {beats}/min 04/13/2021 6:44:31 PAIN LEVEL 0.0 {score} 04/13/2021 8:52:11 BODY TEMPERATURE 97.8 [degF] 04/13/2021 9:46:03 OXYGEN SATURATION 98.0 % 04/13/2021 9:46:03 RESPIRATION RATE 18.0 /min 04/13/2021 9:46:18 OXYGEN SATURATION 99.0 % 04/13/2021 9:46:18 PAIN LEVEL 0.0 {score} 04/13/2021 9:46:45 RESPIRATION RATE 18.0 /min 04/13/2021 11:05:39 INTRAVASCULAR SYSTOLIC 148.0 mm[Hg] 04/13/2021 11:05: 39 INTRAVASCULAR DIASTOLIC 76.0 mm[Hg] 04/13/2021 11:05 :39 HEART BEAT 80.0 {beats}/min 04/13/2021 11:05:39 BODY TEMPERATURE 97.8 [degF] 04/13/2021 12:41:23 OXYGEN SATURATION 98.0 % 04/13/2021 12:41:23 PAIN LEVEL 0.0 {score} 04/13/2021 17:12:04 BODY TEMPERATURE 97.9 [degF] 04/13/2021 21:38:57 OXYGEN SATURATION 98.0 % 04/13/2021 21:38:57 RESPIRATION RATE 18.0 /min 04/13/2021 21:39:55 INTRAVASCULAR SYSTOLIC 134.0 mm[Hg] 04/13/2021 21:39: 55 INTRAVASCULAR DIASTOLIC 70.0 mm[Hg] 04/13/2021 21:39 :55 HEART BEAT 78.0 {beats}/min 04/13/2021 21:39:55 PAIN LEVEL 0.0 {score} 04/14/2021 1:53:42 BODY TEMPERATURE 97.6 [degF] 04/14/2021 1:53:49 OXYGEN SATURATION 98.0 % 04/14/2021 1:53:49 RESPIRATION RATE 18.0 /min 04/14/2021 1:54:33 BODY TEMPERATURE 97.6 [degF] 04/14/2021 5:59:11 OXYGEN SATURATION 98.0 % 04/14/2021 5:59:11 PAIN LEVEL 8.0 {score} 04/14/2021 8:29:47 PAIN LEVEL 8.0 {score} 04/14/2021 8:35:40 BODY TEMPERATURE 97.6 [degF] 04/14/2021 9:42:05 OXYGEN SATURATION 95.0 % 04/14/2021 9:42:05 RESPIRATION RATE 16.0 /min 04/14/2021 9:42:27 INTRAVASCULAR SYSTOLIC 112.0 mm[Hg] 04/14/2021 9:42:2 7 INTRAVASCULAR DIASTOLIC 70.0 mm[Hg] 04/14/2021 9:42: 27 HEART BEAT 69.0 {beats}/min 04/14/2021 9:42:27 PAIN LEVEL 4.0 {score} 04/14/2021 10:46:05 PAIN LEVEL 0.0 {score} 04/14/2021 15:05:57 RESPIRATION RATE 16.0 /min 04/14/2021 15:06:02 OXYGEN SATURATION 95.0 % 04/14/2021 15:06:02 BODY TEMPERATURE 97.7 [degF] 04/14/2021 15:06:26 OXYGEN SATURATION 95.0 % 04/14/2021 15:06:26 BODY TEMPERATURE 97.2 [degF] 04/14/2021 16:22:39 OXYGEN SATURATION 97.0 % 04/14/2021 16:22:39 RESPIRATION RATE 18.0 /min 04/14/2021 16:23:06 INTRAVASCULAR SYSTOLIC 114.0 mm[Hg] 04/14/2021 16:23: 06 INTRAVASCULAR DIASTOLIC 74.0 mm[Hg] 04/14/2021 16:23 :06 HEART BEAT 74.0 {beats}/min 04/14/2021 16:23:06 PAIN LEVEL 0.0 {score} 04/14/2021 16:24:31 BODY TEMPERATURE 97.5 [degF] 04/14/2021 20:15:18 OXYGEN SATURATION 96.0 % 04/14/2021 20:15:18 PAIN LEVEL 0.0 {score} 04/15/2021 0:26:05 PAIN LEVEL 0.0 {score} 04/15/2021 8:48:30 BODY TEMPERATURE 97.7 [degF] 04/15/2021 9:56:00 OXYGEN SATURATION 98.0 % 04/15/2021 9:56:00 RESPIRATION RATE 14.0 /min 04/15/2021 10:25:00 BODY TEMPERATURE 98.2 [degF] 04/15/2021 12:56:52 OXYGEN SATURATION 94.0 % 04/15/2021 12:56:52 RESPIRATION RATE 16.0 /min 04/15/2021 12:57:11 INTRAVASCULAR SYSTOLIC 130.0 mm[Hg] 04/15/2021 12:57: 11 INTRAVASCULAR DIASTOLIC 74.0 mm[Hg] 04/15/2021 12:57 :11 HEART BEAT 90.0 {beats}/min 04/15/2021 12:57:11 PAIN LEVEL 0.0 {score} 04/15/2021 12:57:39 RESPIRATION RATE 18.0 /min 04/15/2021 14:14:35 OXYGEN SATURATION 97.0 % 04/15/2021 14:14:35 BODY TEMPERATURE 97.9 [degF] 04/15/2021 17:15:00 OXYGEN SATURATION 98.0 % 04/15/2021 17:15:00 PAIN LEVEL 0.0 {score} 04/15/2021 18:15:33 RESPIRATION RATE 20.0 /min 04/15/2021 18:15:49 INTRAVASCULAR SYSTOLIC 128.0 mm[Hg] 04/15/2021 18:15: 49 INTRAVASCULAR DIASTOLIC 82.0 mm[Hg] 04/15/2021 18:15 :49 HEART BEAT 88.0 {beats}/min 04/15/2021 18:15:49 BODY TEMPERATURE 97.8 [degF] 04/15/2021 22:19:26 OXYGEN SATURATION 97.0 % 04/15/2021 22:19:26 PAIN LEVEL 0.0 {score} 04/15/2021 23:02:15 BODY TEMPERATURE 97.2 [degF] 04/16/2021 5:56:34 BODY TEMPERATURE 97.2 [degF] 04/16/2021 5:56:43 RESPIRATION RATE 18.0 /min 04/16/2021 5:56:55 PAIN LEVEL 0.0 {score} 04/16/2021 7:34:18 PAIN LEVEL 0.0 {score} 04/16/2021 9:52:01 BODY TEMPERATURE 97.4 [degF] 04/16/2021 10:03:26 OXYGEN SATURATION 97.0 % 04/16/2021 10:03:26 RESPIRATION RATE 18.0 /min 04/16/2021 10:03:52 INTRAVASCULAR SYSTOLIC 133.0 mm[Hg] 04/16/2021 10:03: 52 INTRAVASCULAR DIASTOLIC 76.0 mm[Hg] 04/16/2021 10:03 :52 HEART BEAT 84.0 {beats}/min 04/16/2021 10:03:52 BODY TEMPERATURE 97.6 [degF] 04/16/2021 12:57:18 OXYGEN SATURATION 97.0 % 04/16/2021 12:57:18 PAIN LEVEL 0.0 {score} 04/16/2021 15:46:40 RESPIRATION RATE 18.0 /min 04/16/2021 18:33:54 INTRAVASCULAR SYSTOLIC 136.0 mm[Hg] 04/16/2021 18:33: 54 INTRAVASCULAR DIASTOLIC 90.0 mm[Hg] 04/16/2021 18:33 :54 HEART BEAT 87.0 {beats}/min 04/16/2021 18:33:54 BODY TEMPERATURE 98.0 [degF] 04/16/2021 18:34:21 OXYGEN SATURATION 98.0 % 04/16/2021 18:34:21 RESPIRATION RATE 18.0 /min 04/16/2021 18:34:51 OXYGEN SATURATION 98.0 % 04/16/2021 18:34:51 BODY TEMPERATURE 97.3 [degF] 04/17/2021 2:57:06 OXYGEN SATURATION 97.0 % 04/17/2021 2:57:06 PAIN LEVEL 0.0 {score} 04/17/2021 2:59:41 RESPIRATION RATE 22.0 /min 04/17/2021 2:59:50 INTRAVASCULAR SYSTOLIC 120.0 mm[Hg] 04/17/2021 2:59:5 0 INTRAVASCULAR DIASTOLIC 76.0 mm[Hg] 04/17/2021 2:59: 50 HEART BEAT 71.0 {beats}/min 04/17/2021 2:59:50 BODY TEMPERATURE 97.3 [degF] 04/17/2021 4:29:50 OXYGEN SATURATION 97.0 % 04/17/2021 4:29:50 PAIN LEVEL 0.0 {score} 04/17/2021 8:07:52 PAIN LEVEL 0.0 {score} 04/17/2021 9:20:58 RESPIRATION RATE 18.0 /min 04/17/2021 10:39:15 INTRAVASCULAR SYSTOLIC 155.0 mm[Hg] 04/17/2021 10:39: 15 INTRAVASCULAR DIASTOLIC 98.0 mm[Hg] 04/17/2021 10:39 :15 HEART BEAT 116.0 {beats}/min 04/17/2021 10:39:15 Immunizations Vaccine Date Status Reason Influenza, seasonal, injectable 06/01/2020 Completed SARS-COV-2 (COVID-19) vaccine, mRNA, spi ke protein, LNP, preservative free, 100 mcg/0.5mL dose 02/16/2021 Completed SARS-COV-2 (COVID-19) vaccine, mRNA, spi ke protein, LNP, preservative free, 100 mcg/0.5mL dose 12/29/2020 Completed Social History Smoking Status Start Date End Date Unknown if ever smoked 04/17/2021 11:36:42
--- OUTSIDE RECORDS SUMMARY | 2021-05-09 12:40 | CCD | Summary of Care ---
Author Author [facility] Organization [facility] Address Unknown Phone Unavailable Care Team Providers Care Resourcing Consultant Name Role Phone Jeet Ramirez MD PCP Unavailable Reason for Visit * Reason Comments Post-op follow-up S/p Right subtalar arthrode sis on 01/30/2021. 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 Active D3-50 21446 units capsule Take by mouth 08/29 once [...] tablets by 1 mouth daily as needed 03/08/2021 Active Aspirin EC 325 MG Oral Take 1 tablet 30 tablet 0 0 Tablet Delayed Release by mouth 1 daily Take with food, to help prevent blood clots Active Docusate Sodium 100 MG Take 1 20 capsule 0 Oral Capsule (COLACE) capsule by 1 mouth Two Times Daily documented as of this encounter (statuses as of 02/27/2021) Active Problems Patient Care Coordination Note Pt has been [facility] connected in the past, however, [employer] & other service coordination services ended as of 10/26/19. At this time, the pt is only enrolled in "Voucher Respite" services. He is eligible to be connected with a new healthcare recruiter, by contacting Alvaro Hawkins ([phone]) Problem Noted Date Ankle arthropathy 02/02/2021 GERD [...] as of this encounter (statuses as of 02/27/2021) Immunizations Name Administration Dates Next Due Influenza [...] on file Date Recorded COVID-19 Exposure Response 02/20/2021 8:59 AM EDT In the last month, have you been in contact with No / Unsure someone who was confirmed or suspected to have Coronavirus / COVID-19? documented as of this encounter Last Filed Vital Signs Not on filedocumented in this encounter Patient Instructions * Patient Instructions* Chela Padilla LPN - 02/14/2021 1:20 PM EDT The patient is instructed to call the office with any question/concerns or if sy mptoms worsen. documented in this encounter Progress Notes * Aleyda Cobos - 02/14/2021 1:20 PM EDT Patient was given a short leg cast today on the RIGHT foot. * Jeet Lagunas MD - 02/14/2021 1:20 PM EDT Chief Complaint: Chief Complaint Patient presents with Post-op follow-up S/p Right subtalar arthrodesis on 01/30/2021. History of Present Illness: Davie Trujillo presents for his 2-week postop vi sit following right subtalar arthrodesis with right proximal tibia autograft. Sofi edmonds has been at [facility] since discharge from the hospital, progressing as exp ected following surgery. Splint was removed for evaluation today. Patient repo rts pain is adequately controlled on current regimen. He is gradually improving of his ability to mobilize, has been getting out of bed. The patient's past MEDICAL/SURGICAL/SOCIAL history have been reviewed, with pert inent changes documented in the chart. ROS: Pertinent positives as above in the HPI, all other systems negative. Physical Exam: There were no vitals taken for this visit. General: AAOx3, NAD RIGHT Foot/Ankle: Andrew in place to R proximal leg, R medial and lateral foot surgical wounds. Sutures in place to posterior heel wound. All are healing well, no dehiscence o r drainage. No surrounding erythema. Sensation intact to light touch to saphen ous/SP/DP/sural/tibial nerve distribution. Motor function intact in FHL/EHL/tib ant/gastroc. Toes warm well perfused. Assessment: 1. S/p R subtalar arthrodesis 01/30/21 Plan: Patient is doing well status post right subtalar arthrodesis. Short l eg cast to be placed in clinic today. Continue NWB RLE. Continue ASA for DVT p px. Will stay at [facility], discussing between case supervisor and rehab center planned for next Friday. Attending Addendum: I attest that I was present and active in conducting the his tory and physical examination and I am in agreement with the history, physical e xam, and the assessment and plan as documented above by the resident physician. Follow-Up: 5 weeks Xrays/superficial visit: R foot / ankle No orders of the defined types were placed in this encounter. CC: Jeet Ramirez MD This document was dictated using whodoyou software. A reasonable attempt at proof reading has been made to minimize errors. Please ca ll our office if you have any questions. documented in this encounter Plan of Treatment Care Team Description Date Type Specialty Christal Mahajan, DO [address] [place] [phone] 03/07/2021 Appointment Neurology Kota No MD [address] [place], [place] [phone] 03/23/2021 Office Visit Orthopedic Surgery Bradly Gutierrez MD [address] [place], [place] [phone] 04/24/2021 Office Visit Urology Christal Mahajan, DO [address] [phone] 05/23/2021 Office Visit Neurology Order Schedule Name Type Priority Associated Diag noses Expected: 02/14/2021, Expires: 3 XR Foot 3 or More Views Imaging Routine Arthri tis of right Right subtalar joint Health Maintenance Due Date Last Done Comments MMR Vaccines (1 of - 1989 Standard series) Varicella Vaccines (1989 2 - 2-dose childhood series) DTaP,Tdap,and Td [...] X80mm- 16mm/Thd - Right: Ankle SYNT HES [id number] LTD [facility] Implanted: Qty: 1 on 01/30/2021 by Kota No MD at OR CC [id number] / / Screw Monique.6.5 X85mm- 16mm/Thd - SYNTHES [id number] LTD [facility] Implanted: Qty: 1 on 01/30/2021 by Kota No MD at OR [facility] documented as of this encounter Results Not on filedocumented in this encounter Visit Diagnoses Diagnosis Arthritis of right subtalar joint - [facility] documented in this encounter
--- OUTSIDE RECORDS SUMMARY | 2021-05-09 12:40 | CCD | Summary of Care ---
Author Author [facility] Organization [facility] Address Unknown Phone Unavailable Care Team Providers Care Bar Roller Name Role Phone Jeet Ramirez MD PCP Reason for Referral * Physical Therapy (Routine) Referred By Contact Referred To Contact Status Reason Specialty Diagnoses / Procedures Kota No MD [address] [place] [address] Email: [email or web address] Physical Therapy Diagnoses Arthritis of right subtalar joint P rocedures Physical Therapy Electronically signed by Kota No MD at * Used Durable Medical Equipment (Routine) Referred By Contact Referred To Contact Status Reason Specialty Diagnoses / Procedures Kota No MD [address] [place] [address] Email: [email or web address] Authorized Diagnoses Arthritis of right subtalar joint Scheduling Instructions [id number] Cam Boot Walking - Tall Electronically signed by Kota No MD at Reason for Visit * Reason Comments Follow-up S/p Right subtalar arthrode sis on 01/30/2021. 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 Active D3-50 75759 units capsule Take by mouth 08/29 once [...] as of this encounter (statuses as of 03/29/2021) Active Problems Patient Care Coordination Note Pt has been [facility] connected in the past, however, [employer] & other service coordination services ended as of 10/26/19. At this time, the pt is only enrolled in "Voucher Respite" services. He is eligible to be connected with a new child caregiver private home, by contacting Alvaro Hawkins ([phone]) Problem Noted Date Ankle arthropathy 02/02/2021 GERD [...] as of this encounter (statuses as of 03/29/2021) Immunizations Name Administration Dates Next Due Influenza [...] on file Date Recorded COVID-19 Exposure Response 03/23/2021 9:31 AM EDT In the last month, have you been in contact with No / Unsure someone who was confirmed or suspected to have Coronavirus / COVID-19? documented as of this encounter Last Filed Vital Signs Not on filedocumented in this encounter Patient Instructions * Patient Instructions* Chela Padilla LPN - 03/23/2021 10:00 AM EDT The patient is instructed to call the office with any question/concerns or if sy mptoms worsen. documented in this encounter Progress Notes * Fabián Dow - 03/23/2021 10:00 AM EDT Right Lower Extremity Orthosis Patient was prescribed a Cam/Fracture Boot for this visit's encounter diagnosis. The patient is ambulatory but has weakness and/or instability of their RIGHT L OWER EXTREMITY which requires stabilization from this semi-rigid/rigid orthosis to improve their function. * Kota No MD - 03/23/2021 10:00 AM EDT Chief Complaint: Chief Complaint Patient presents with Follow-up S/p Right subtalar arthrodesis on 01/30/2021. History of Present Illness: Davie Trujillo returns for postop followup 6 wee ks out from his subtalar arthrodesis. He is doing reasonably well. [facility] in [facility]. He has had trouble staying off the foot. He i s bedbound or chair bound most of the day. The patient's past MEDICAL/SURGICAL/SOCIAL history have been reviewed, with pert inent changes documented in the chart. ROS: Pertinent positives as above in the HPI, all other systems negative. Physical Exam: There were no vitals taken for this visit. General: AAOx3, NAD Right Foot/Ankle: The foot appears well aligned. Minimal swelling. The inci carlos looks well-healed. Imaging: Radiographs reveal no evidence of loss of fixation. Likely interval healing of the subtalar joint. Assessment: 1. 6 weeks s/p Right subtalar fusion Plan: Davie looks good in the office today. He will be placed into a cam boot. He may begin partial progressive weightbearing, starting at 25%, advancin g 25 %/week until full. Continue with DVT prophylaxis until he is more mobile. Follow-Up: 6 weeks Xrays next visit: Right foot Orders Placed This Encounter Referral to [facility], External Only Physical Therapy CC: Jeet Ramirez MD This document was dictated using [employer] software. A reasonable attempt at proof reading has been made to minimize errors. Please ca ll our office if you have any questions. documented in this encounter Plan of Treatment Care Team Description Date Type Specialty Bradly Gutierrez MD [address] [place] [address] 04/24/2021 Office Visit Urology Kota No MD [address] [place], [place] [phone] 05/04/2021 Office Visit Orthopedic Surgery [facility], Christal, DO [address] [facility] 4th [place] [phone] 05/23/2021 Office Visit Neurology 05/31/2021 Appointment Radiology Order Schedule Name Type Priority Associated Diag noses Expected: 03/24/2021, Expires: 3 XR Foot 3 or More Views Imaging Routine Arthri tis of right Right subtalar joint Expected: 03/24/2021, Expires: 3 XR Ankle 2 Views Right Imaging Routine Arthrit is of right subtalar joint Order Schedule Name Type Priority Associated Diag noses Ordered: 03/23/2021 Referral to DME, External Outpatient Routine Arth ritis of right Only Referral subtalar joint Health Maintenance Due Date Last [...] X80mm- 16mm/Thd - Right: Ankle SYNT HES [id number] TRAUMA Implanted: Qty: 1 on 01/30/2021 by Kota No MD at OR [facility] [id number] / / Screw Monique.6.5 X85mm- 16mm/Thd - SYNTHES [id number] TRAUMA Implanted: Qty: 1 on 01/30/2021 by Kota No MD at OR [facility] documented as of this encounter Results Not on filedocumented in this encounter Visit Diagnoses Diagnosis Arthritis of right subtalar joint - [facility] documented in this encounter
--- OUTSIDE RECORDS SUMMARY | 2021-05-09 12:40 | CCD ---
Author Author [facility] Organization [facility] Address Unknown Phone Unavailable Care Team Providers Care Welding Machine Operator Friction Name Role Phone Ryan Dixon Unavailable PROBLEMS Type Condition ICD9-CM Code [id number] Code Onset Dates Condition S tatus W/U Status Risk SNOMED Code Notes Problem BMI 50.0-59.9, adult Z68.43 Active confirmed 534938674 Problem Primary osteoarthritis of both knees M17.0 Act rebekah confirmed 024103185 Problem Constipation, unspecified constipation type K59.00 Active confirmed 60596712 Problem Mild intermittent asthma without complication J45. 20 Active confirmed 875592600 Problem Seizure disorder G40.909 Active confirmed 12 5504015 Problem Obstructive sleep apnea G47.33 Active confirmed 59098435 Problem Hyperlipidemia due to dietary fat intake E78.49 Active confirmed 157130939 ALLERGIES Allergen (clinical drug ingredient) Drug/Non Drug Allergy do cumented on EMR Reaction Allergy Type Onset Date Status naproxen Naprosyn(NDC Code:[address]-11) Nausea/Vomiting Drug Ben rgy Active phenytoin Dilantin Rash Drug Allergy Active amoxicillin Amoxicillin(NDC Code:[address]-91) RASH Drug Aller gy Active codeine Codeine Sulfate(NDC Code:[address]-38) Nausea/Vomiting Dr rachell Allergy Active ENCOUNTERS from 1988 to 2021-02-22 Encounter Location Date Provider Diagnosis [facility] [address] [facility] [address] [phone] [place] [address] Dec, Ryan Dixon IMMUNIZATIONS Vaccine Route Administration Date Status Influenza 6mo & up Fluzone IM Intramuscular May 25, 2013 Admi nistered SOCIAL HISTORY Sex Assigned At : Social History Observation Description Sex Assigned At Unknown REASON FOR REFERRAL No Information VITAL SIGNS No information MEDICATIONS Medication SIG (Take, Route, Frequency, Duration) Notes Start Da te End Date Status Doxycycline Monohydrate 100 MG 1 capsule Orally Twice a day for 30 da y(s) Unknown Carafate 1 GM 1 tablet on an empty stomach Orally twice a day as needed for 30 day(s) November, Unknown Keppra 500 MG 1 tablet Orally every 12 hrs for 30 days Unknown Vitamin D (Ergocalciferol) 76750 UNIT 1 capsule Orally weekly fo r 90 days Aug, Unknown Clindamycin Phosphate 1 % 1 application Externally Twice a day for 30 days Unknown Tylenol 325 MG 1 tablet as needed Orally every 4 hrs for 90 days Aug, Unknown Cetirizine HCl 10 mg 1 tablet as needed Orally Once a day for 30 day( s) Unknown Albuterol Sulfate (2.5 MG/3ML) 0.083% 3 ml Inhalation Three times a day as needed for 1 month Unknown MiraLax - 1 packet mixed with 8 ounces of fluid Or ally Once a day for 30 day(s) Unknown Nystatin 135445 UNIT/GM apply Externally groin Twice a day for 1 month Dec, Unknown Incruse Ellipta 62.5 MCG/INH 1 puff Inhalation Once a day Unknown Breo Ellipta 100-25 MCG/INH 1 puff Inhalation Once a day Unknown Montelukast Sodium 10 mg 1 tablet Orally at bedtime for 30 day(s) Unknown Biotin 1000 MCG 1 tablet Orally Once a day for 30 day(s) Unknown Pristiq 50 mg 1 tablet Orally Once a day for 30 day(s) Unknown Alclometasone Dipropionate 0.05 % 1 application Asphalt Heater Tender ally Twice a day for TEN DAYS ONLY to dry skin rash on face for 10 days Unknown Ibuprofen 600 MG 1 tablet with food or milk a s needed Orally Three times a day for 15 days Unknown Zofran 4 MG 1 tablet Orally Once a day for 30 day(s) Unknown MiraLax Mix-In Terrell 17 GM 1 packet mixed with 8 ounces of fluid Orally Once a day for 30 day(s) Aug, Unknown Vitamin D-3 5000 UNIT 2 TABS Orally QWEEK Unknown PriLOSEC 20 mg 1 capsule Orally twice daily for 30 day(s) Jan, Unknown Imitrex 100 MG 1 tablet as needed Orally Twice a day Unknown Topamax 200 MG 1 tablet Orally BID for 30 Days Unknown Ciclopirox 1 % 1 application Externally Thr ee times a Week to scalp and sow area for 30 days Unknown Vitamin B12 100 MCG as directed Orally Unknown PROCEDURES No Information RESULTS No Results REASON FOR VISIT fell on bilat knees today/hx of osteo of knees MEDICAL (GENERAL) HISTORY Type Description Date Medical History Migraines Medical History Asthma Medical History History of Seizures Medical History Depression/Anxiety Medical History RUBINA on CPAP Medical History Arthritis Medical History COPD Medical [...] [facility] CCAL MUCOSA Medical History UMBILICAL HERNIA Medical History Candidal intertrigo Medical History Stricture, ureter Medical History Obesity Surgical History T&A Surgical History Hypospadius repair [...] Information ASSESSMENTS No Information PLAN OF TREATMENT No Information Insurance Providers Payer Name Payer Address Payer Phone Insured Name Patient Relati onship to Insured Coverage Start Date Coverage End Date FORMERLY [facility] [address] [facility] [phone] NICK MEEK self
--- OUTSIDE RECORDS SUMMARY | 2021-05-09 12:40 | CCD | Summary of Care ---
Author Author [facility] Organization [facility] Address Unknown Phone Unavailable Care Team Providers Care Teletypewriter Installer Name Role Phone Jeet Ramirez MD PCP Unavailable Reason for Referral * (Routine) Referred By Contact Referred To Contact Status Reason Specialty Diagnoses / Procedures Christal Mahajan DO [address] [place] [phone] Email: [email or web address] Open Diagnoses Partial symptomatic epilepsy with complex partial seizures, not intractable, without status epilepticus P rocedures EEG Routine Study Electronically signed by Christal Mahajan DO at * Diagnostic Radiology (Routine) Referred By Contact Referred To Contact Status Reason Specialty Diagnoses / Procedures Christal Mahajan DO [address] [place] [phone] Email: [email or web address] Open Radiology Diagnoses Partial symptomatic epilepsy with complex partial seizures, not intractable, without status epilepticus P rocedures MR Brain with and without Contrast Electronically signed by Christal Mahajan DO at Reason for Visit * Reason Comments Follow-up * Consultation (STAT) Referred By Contact Referred To Contact Status Reason Specialty Diagnoses / Procedures Orthopedics Private Practice [facility] [address] [place] [phone] Christal Mahajan DO [address] [place] [phone] Email: [email or web address] Authorized Specialty Services Neurology Diagnoses Required Seizures Encounter Details Care Team Description Date Type Department Christal Mahajan, DO [address] [facility] [facility] 4th [place] [address] Partial symptomatic epilepsy with comple x partial seizures, not intractable, without status epilepticus (Primary Dx); Seizure 02/20/2021 Office Visit [facility] Neurology a [facility] [address] [facility] 4th Floor, [address] [place] [address] Allergies Comments Active Allergy Reactions Severity Noted Date Phenytoin Hives Medium 08/09/2013 Seasonal Environmental Itching Low 01/26/2021 Naproxen Hives Medium 08/09/2013 Acetaminophen-Codeine Hives Medium 08/09/19 14 documented as of this encounter (statuses as of 02/22/2021) Medications End Date Status Medication Sig Dispensed [...] by 0 tablet mouth daily. Active D3-50 09626 units capsule Take by mouth 08/29 once [...] as of this encounter (statuses as of 02/22/2021) Active Problems Patient Care Coordination Note Pt has been [facility] connected in the past, however, [facility] & other service coordination services ended as of 10/26/19. At this time, the pt is only enrolled in "[facility]ou[facility] Respite" services. He is eligible to be connected with a new care transition coordinator, by contacting Alvaro Hawkins ([phone]) Problem Noted Date Ankle arthropathy 02/02/2021 GERD [...] as of this encounter (statuses as of 02/22/2021) Immunizations Name Administration Dates Next Due Influenza [...] of this encounter Last Filed Vital Signs Reading Time Taken Comments Vital Sign 152/67 02/20/2021 9:12 AM EDT Blood Pressure 92 02/20/2021 9:12 AM EDT Pulse - - Temperature - - Respiratory Rate - - Oxygen Saturation - - Inhaled Oxygen Concentration 173.9 kg (383 lb 6 oz) 02/20/2021 9:12 AM EDT as of 02/06/21 Weight 180.3 cm (5' 11") 02/20/2021 9:12 AM EDT Height 53.47 02/20/2021 9:12 AM EDT Body Mass Index documented in this encounter Patient Instructions * Patient Instructions* Armando Jacob - 02/20/2021 9:15 AM EDT Patient instructed to schedule and obtain MRI brain, EEG, and blood work that jimenez ve been ordered. Continue Keppra 500 mg BID and Topiramate 200 mg BID. Encouraged to contact industrial education instructor for toenail care. documented in this encounter Progress Notes * Armando Jacob - 02/20/2021 9:15 AM EDT [facility] OUTPATIENT FOLLOW UP [facility] AT [address]LO[address], [address] [facility] [phone] Dept: [phone] Dept SEIZURE HISTORY AND EVOLUTION: Davie Trujillo is a 30 y.o., right handed male who is here in the clinic for a follow up. The patient is accompanied by himself to the clinic today. Seizure onset was at age of 1. Last seizure Seizure Type I: ? bedtime - Aura: Weird sensation - Ictal:they are unwitnessed, He falls to sleep and may shake his arms and head . Rarely he falls out of bed - Postictal: none - Duration several minutes - sensation of feeling weird - Frequency: nightly sensation of feeling weird - Diurnal variation: nightly - Tongue biting: no - Bladder or bowel incontinence: no - History of status epilepticus: no - Triggers: unknown Seizure TypeI II: Anxiety - Aura: none - Ictal:stops responding eyes close - Postictal: no recall - Duration: few minutes - Frequency: Only when step brother visits - usually every 2 weeks - Tongue biting: no - Bladder or bowel incontinence: no - History of status epilepticus: no - Triggers: step brother Seizure Type IV: Unresponsive with shaking - Aura: Sometimes "weird feeling ? Dizzy". Father stated he may complain of feeling ill or nauseous before seiz ures. -Ictal: non responsive, head shakes side to side, asynchronous movements of both arms. -Postictal: Tired -Duration: 10-15 min -Frequency: Five times a day -Diurnal variation:Any time -Tongue biting: no -Bladder or bowel incontinence: no -History of status epilepticus: no -Triggers: Stress -Longest seizure-free interval: one year He also has events they label as "anxiety" that only occur when his step brother visits. He will close his eyes, doesn't respond , no shaking. These last a few min with no recall. When he last seen by LCYDE Noel in January he reported having increased seizu res. He reported a "weird" feeling , then he stares into space, and has shaking of the extremities. He is not aware of his surroundings during an episode. He c annot hear his parents. The episodes last less than a minute; but had lasted up to 20 minutes before. He is fatigued afterwards. He denies tongue biting or inco ntinence. When he was last seen on 01/30/2021 he was doing well. Seizures were under contr ol. Today he again states his seizures have been under control. He has not had a seizure in several months, although he does not remember the exact date. He also does not remember what type of seizure it was but believes one of his parents told him he was shaking during it. Reports that he is compliant with his Keppra and topiramate. He denies side effects associated with these drugs including moo d changes, depression, anxiety, and extremity paresthesias. At last visit, an MRI brain, routine EEG, Keppra level, and topiramate level wer e ordered. However, patient states that since his surgery and rehab stay he has been very busy and he was not aware that he could get those done while in rehab. INTERIM HISTORY: Davie is currently in rehabilitation unit for the recent right ankle surgery. He has a cast on his right leg up to the knee. He states that he does not have m uch of the benefit from the rehabilitation. He denies having any seizures. He jimenez s not done EEG or MRI brain. Will make sure it will be performed now. EPILEPSY RISK FACTORS - History of head trauma: no - History of meningitis/encephalitis/ADVERTISING SUPERVISOR infection: no - History of febrile seizure: no - Family history of seizures: no - Other: ? problems. PNEA RISK FACTORS/PSYCHIATRIC HISTORY Patient appears to be significantly depressed ANTIEPILEPTIC DRUGS (AED) and OTHER TREATMENTS Current AEDs: Keppra 500 mg BID Topamax 200 mg BID Previous AEDs: Carbamazepine Depakote ER Lamictal Dilantin VNS: No SIDE EFFECTS AND INTERVENTION None COMPLIANCE WITH TREATMENT Patient states he in compliant with medication. Takes every dose as prescribed. PAST MEDICAL HISTORY Past Medical History: Diagnosis Date Abnormal gait Allergy, unspecified not elsewhere classified environmental Anxiety Arthritis Asthma COLD (chronic obstructive lung disease) COPD (chronic obstructive pulmonary disease) Depression Difficult or painful urination GERD (gastroesophageal reflux disease) Headache(784.0) Hematuria Hypertension Low back pain Morbid obesity RUBINA (obstructive sleep apnea) Peripheral neuropathy 03/22/2015 Seizures last seizure 12/26/2020 Sleep apnea uses cpap Urethral stricture Urinary frequency Urinary retention PAST SURGICAL HISTORY Past Surgical History: Procedure Laterality Date ABDOMINAL SURGERY exploratory ANKLE SURGERY Right 01/30/2021 Right subtalar arthrodesis APPENDECTOMY CHOLECYSTECTOMY COLECTOMY CYSTOSCOPY RESECTION N/A 02/01/2014 Procedure: INSERT,TEMP INDWELLING BLAD CATH,SIMPLE; Surgeon: Nieves Alvarado MD; Location: OR [facility]; Service: Urology; Laterality: N/A; HERNIA REPAIR PENILE PROSTHESIS IMPLANT AL CYSTOSCOPY,DIL URETHRAL STRICTURE N/A 01/02/2015 Procedure: CYSTOSCOPY, URETHRAL DILATON /INCISION WITH C-ARM.PER ; Surgeon: Nieves Alvarado MD; Location: OR [facility]; Service: Urology; Laterality: N/A; AL CYSTOSCOPY,DIL URETHRAL STRICTURE N/A 02/01/2014 Procedure: CYSTOSCOPY AND URETHRAL DILATION, CASTILLO WITH C-ARM [RIGID SCOPE]; Surgeon: Nieves Alvarado MD; Location: OR [facility]; Service: Urology; Laterality: N/A; AL RECONSTRUC ANT MALE URETHRA N/A 05/28/2017 Procedure: CYSTOSCOPY, ANTERIOR URETHROPLASTY, BUCCAL MUCOSAL GRAFT; Surgeon: Bradly Gutierrez MD; Location: OR [facility]; Service: Urology; Laterality: N/A; TONSILLECTOMY FAMILY HISTORY Family History Problem Relation Age of Onset COPD Father Asthma Father Arthritis Father Diabetes Father Mental illness Father Sleep apnea Father Cancer Father prostate Osteoporosis Father Parkinsonism Father Hypertension Father Arthritis Mother Diabetes Mother Mental illness Mother Sleep apnea Mother No Known Problems Brother SOCIAL HISTORY Former smoker, no alcohol, no illicit drugs Social History Socioeconomic History Marital status: Single Spouse name: Not on file Number of children: Not on file Years of education: Not on file Highest education level: Not on file Occupational History Not on file Tobacco Use Smoking status: Never Smoker Smokeless tobacco: Never Used Vaping Use Vaping Use: Never used Substance and Sexual Activity Alcohol use: No Drug use: No Sexual activity: Never Other Topics Concern Not on file Social History Narrative Not on file Social Determinants of Health Financial Resource Strain: Difficulty of Paying Living Expenses: Food Insecurity: Worried About Running Out of Food in the Last Year: Ran Out of Food in the Last Year: Transportation Needs: Lack of Transportation (Medical): Lack of Transportation (Non-Medical): Physical Activity: Days of Exercise per Week: Minutes of Exercise per Session: Stress: Feeling of Stress : Social Connections: Frequency of Communication with Friends and Family: Frequency of Social Gatherings with Friends and Family: Attends Rastafarian Services: Active Member of Clubs or Organizations: Attends Club or Organization Meetings: Marital Status: Intimate Partner Violence: Fear of Current or Ex-Partner: Emotionally Abused: Physically Abused: Sexually Abused: REVIEW OF SYSTEMS Complete review of systems were performed and is is negative except the one spec ified in HPI ALLERGIES Allergies Allergen Reactions Dilantin [Phenytoin] Hives Naproxen Hives Tylenol With Codeine #3 [Acetaminophen-Codeine] Hives Environmental Itching Seasonal MEDICATIONS Outpatient Medications Marked as Taking for the 02/20/21 encounter (Office Visit) with Christal Mahajan, DO Medication Sig Dispense Refill Extra Info Aspirin EC 325 MG Oral Tablet Delayed Release Take 1 tablet by mouth min y Take with food, to help prevent blood clots 30 tablet 0 1 cetirizine (ZYRTEC) 10 MG tablet Take 10 mg by mouth daily. 1 D3-50 58175 units capsule Take by mouth once a week 11 1 Desvenlafaxine Succinate ER 100 MG Oral Tablet Extended Release 24 Hour ( PRISTIQ) Take 100 mg by mouth daily 1 Docusate Sodium 100 MG Oral Capsule (COLACE) Take 1 capsule by mouth Two Times Daily 20 capsule 0 1 Fluticasone-Salmeterol(sensor) 232-14 MCG/ACT Aerosol Powder Breath Activ ated Inhale 1 Inhaler into the lungs Two Times Daily 1 levETIRAcetam 500 MG Oral Tablet (KEPPRA) Take 500 mg by mouth Two Times Daily 1 Loratadine 10 MG Oral Tablet (CLARITIN) Take 10 mg by mouth daily 1 Methocarbamol 750 MG Oral Tablet (ROBAXIN) Take 1 tablet by mouth Two chavez es daily as needed (pain) 1 Mirtazapine 15 MG Oral Tablet (REMERON) Take 15 mg by mouth daily 1 montelukast (SINGULAIR) 10 MG tablet Take 10 mg by mouth nightly. 1 omeprazole (PRILOSEC) 40 MG capsule Take 40 mg by mouth Two Times Daily 1 oxyCODONE HCl 5 MG Oral Tablet (ROXICODONE) Take 5-10 mg by mouth every 4 (four) hours as needed for Pain 1 Senna 8.6 MG Oral Tablet Take 2 tablets by mouth daily as needed 120 tabl et 0 1 sucralfate (CARAFATE) 1 G tablet Take 1 g by mouth Two times daily as nee ded 1 topiramate (TOPAMAX) 200 MG tablet Take 200 mg by mouth Two Times Daily. 1 Trospium Chloride 20 MG Oral Tablet (SANCTURA) Take 1 tablet by mouth Two times daily before breakfast and dinner 60 tablet 2 1 Lab results: Lab Results Component Value Date WBC 9.5 02/05/2021 HGB 13.5 02/05/2021 HCT 40.4 (L) 02/05/2021 MCV 86.8 02/05/2021 PLT 244 02/05/2021 Lab Results Component Value Date ALT 33 05/14/2017 AST 21 05/14/2017 ALKPHOS 75 05/14/2017 TBILI 0.3 05/14/2017 Lab Results Component Value Date CALCIUM 9.0 02/05/2021 Lab Results Component Value Date NA 138 02/05/2021 K 3.7 02/05/2021 CL 103 02/05/2021 PREVIOUS INVESTIGATIONS Imaging: MRI 05-17-14 - [facility] Radiology - Normal EMG [facility] Neurology - Left peroneal nerve compression injury; no evidence of neuropathy EEGs 04/27/14 [facility] Neurology - Normal 08/30/14 - [facility] Neurology - "R > L frontal spike with after coming slow wave". Video-EEG monitoring 2101: VEEG monitoring consistent with the presence of nonepileptic spells. However only relatively brief spells were captured. It is likely that the patient may have had,or continue to have epilepsy as well, based on the history and EEG. 03/21/15 to 03/22/15: VEEG monitoring captured one nonepileptic event and one orth ostatic event 03/2021:Simone Herman MD 04/26/2017 12:46 PM COMPUTER ASSISTED DIGITAL VIDEO EEG MONITORING REPORT NUMBER: [id number] DATES and TIMES of PROCEDURE: This Computer Assisted Digital Video EEG was recorded continuously from: 04/21/17 @ 10:16 to 04/25/17 @ 11:41 Recording was for 97.5 hours over 5 days, 13.5 hours on Day 1, 24 hours on days 2, 3 & 4; and 12 hours on day 5 CLINICAL HISTORY: Davie Trujillo is a 26 y.o. male with a history of multiple spell types some of which were previously shown to be psychogenic. He also had interictal bursts of slowing and sharp activity suspicious for possible epileptic potential; who has been referred again for video-EEG monitoring by CLYDE Valdez [address] [place] [address] TECHNICAL DESCRIPTION: his Computer Assisted Digital Video EEG was recorded using 21 scalp electrodes; and 2 EKG electrodes. It was reviewed using referential and bipolar montages following reformatting in the 10[employer] electrode placement system. Isaias and seizure detection algorithms and Digital Isaias Analysis using dipole mapping software were employed. The patient was continuously monitored on video. Staff monitored the patient and noted routine and suspicious activities. When appropriate staff stimulated, interrogated and/or tested the patient during suspicious activities; and/or to provoke seizures. Photic stimulation, hyperventilation, sleep deprivation and exercise were employed to try to induce seizures. The entire record was reviewed, and selected portions; including: spells reported by the patient, family or staff; spike and seizure detections; suspicious video or EEG findings; and other suspicious abnormalities were analyzed in detail. Waking background consisted of occasional approximately symmetric 7 to 8.5 Hz, 20 to 60 microvolt, posterior activity that was attenuated with eye opening. Theta and lower amplitude, faster frequencies were seen frequently. During drowsiness there was buildup of approximately symmetric theta and delta slowing centrally and temporally, as well as frontal and central beta, slow rolling eye movements, and drop out of the wake background. Stages 1 and 2 of sleep included approximately symmetric vertex sharp transients, sleep spindles and K-complexes in the central head regions. Deeper sleep included approximately symmetric high amplitude delta slowing. REM sleep was also symmetric. Hyperventilation was not done due to asthma. Photic stimulation was performed twice.with flash frequencies of 2-21 Hz and elicited moderate photic driving, maximal at 6 to 15 Hz. Activation of epileptiform abnormalities was not seen. There were about 20 bursts of higher amplitude slowing with intermixed sharp activity; lasting for 1 to 4 seconds seen primarily while awake. They were variably frontal in brayden, but generalized overall; they ranged from 100 to 200 microvolts. The sharp activity was occasionally suspicious for epileptiform activity; but this was unclear. No clinical correlate was seen. IEDs: Possible interictal epileptiform discharges were seen in a variable but generalized fashion; intermixed with the bursts of slowing, as above. No clinical correlate was seen. SEIZURES OR SPELLS: No seizures or spells were captured. CLINICAL IMPRESSION: This Computer Assisted Digital Video EEG is abnormal due to bursts of higher amplitude slowing, of 100 to 200 microvolts, with intermixed s harp activity; lasting for 1 to 4 seconds seen primarily while awake. Possib le interictal epileptiform discharges were seen in a variable but generalized fa shion; intermixed with these bursts of slowing. No clinical correlate was seen EXAMINATION Vitals: 02/20/21 0912 BP: 152/67 Pulse: 92 Weight: (!) 173.9 kg (383 lb 6 oz) Height: 1.803 m (5' 11") General appearance: Awake, alert, cooperative, no distress, appears stated age Head: Normocephalic, without obvious abnormality, atraumatic Eyes: Conjunctiva not pale, sclera not icteric Ears/Nose/Throat: no discharge Neck: Supple, trachea midline, no carotid bruit Extremities: Notes to have very long toe nails. He has a cast upto his knee on t he right foot due to ankle surgery on the right ankle Neurological exam: Alert and oriented x3, speech normal. Pupils symmetric and reactive to direct and consensual light bilaterally. Extraocular movements intact with no nystagmus. Visual west intact by confront ation. Face symmetric, V1-V3 intact to light touch. Tongue is in midline, palate elevates upward symmetrically. Muscle tone and bulk normal, motor strength 5/5 in upper extremities and right l ower extremity. Left lower extremity 3/5 limited by pain from surgery. Sensation intact to light touch in upper and lower extremities. Slightly decreas ed to light touch in the right lower extremity compared to the left which he sta alok has been from surgery. No resting or positional tremor. Reflexes 2+ and symmetric in the upper and lower extremities. Finger to nose intact bilaterally. SAE intact bilaterally. Gait exam deferred as patient is in a wheelchair. ASSESSMENT/PLAN Patient is a 30 y.o. right handed male with a history of seizures that first sta rted when he was 1. His seizures are currently under control on Keppra 500 mg BI D and topiramate 200 mg BID. MRI, EEG, and anti-epileptic drug levels ordered at last visit were not completed as patient recently had surgery on his right leg/ ankle and has been at rehab since. - Medications: Tpamax 200 mg and Keppra 500 mg BID. Side effects including irritabilitywere dis cussed with the patient. Work up: - MRI brain with and without contrast - Routine EEG - Order blood level of AEDs. Patient instructed that he should have blood levels drawn before he takes his morning dose. - Discussed that patient may need vEEG in the future depending on results of rou kerri EEG. Discussed with patient that he should see industrial education instructor for toenail trimming as his are at risk for breaking which could potentially lead to infection. Patient sta alok he has seen a industrial education instructor in the past. Encouraged patient to contact them for an appointment. The patient agreed with the plan as outlined above. Return to clinic in 3 months or sooner if needed. The patient was seen, examined, and discussed with attending, Miroslava Chavez, who agrees with the above assessment and plan. Armando Jacob, MS4 We spent 31 minutes today on a patient encounter reviewing charting, seeing mary ent, medications, tests or procedures, documenting clinical information in medic al records and communicating result's to the patient and patient's family or car egivers. I saw and evaluated the patient. Discussed with the resident and agree with the residents findings and plans as written, along with any supplemental dictated a nd/or attending documentation in the patient record by myself. documented in this encounter Plan of Treatment Care Team Description Date Type Specialty Christal Mahajan DO [address] [phone] 03/07/2021 Appointment Neurology Kota No MD [address] [place] [address] 03/23/2021 Office Visit Orthopedic Surgery Bradly Gutierrez MD [address] [place], [place] [id number] 04/24/2021 Office Visit Urology Christal Mahajan DO [address] [phone] 05/23/2021 Office Visit Neurology Order Schedule Name Type Priority Associated Diag noses Expected: 02/22/2021, Expires: 2 MR Brain with and without Imaging Routine Part ial symptomatic Contrast epilepsy with complex partial seizures, not intractable, without status epilepticus 1 Occurrences starting 02/22/2021 until 02/22/2022 EEG Routine Study Neurology Routine Partial symp tomatic epilepsy with complex partial seizures, not intractable, without status epilepticus Health Maintenance Due Date Last Done Comments [...] X80mm- 16mm/Thd - Right: Ankle SYNT HES [id number] [employer] [place] Implanted: Qty: 1 on 01/30/2021 by Kota No MD at [facility] [id number] / / Screw Monique.6.5 X85mm- 16mm/Thd - SYN[employer]ES [id number] [employer] [place] Implanted: Qty: 1 on 01/30/2021 by Kota No MD at [facility] documented as of this encounter Procedures Comments Procedure Name Priority Date/Time Associated Diag nosis TOPIRAMATE LEVEL Routine 02/20/2021 Partial sympt omatic 10:19 AM EDT epilepsy with complex partial seizures, not intractable, without status epilepticus LEVETIRACETAM LEVEL Routine 02/20/2021 Partial sy mptomatic 10:19 AM EDT epilepsy with complex partial seizures, not intractable, without status epilepticus CBC AND DIFFERENTIAL Routine 02/20/2021 Seizure 10:19 AM EDT COMPREHENSIVE METABOLIC Routine 02/20/2021 Seizur e PANEL 10:19 AM EDT documented in this encounter Results * CBC and Differential (02/20/2021 10:19 AM EDT) White Blood 8.4 4.00 - 10.00 [facility] Red Blood Cell 5.28 4.60 - 6.10 10*6/uL [facility] te [facility] Clin Pathology Hemoglobin 15.1 13.5 - 18.0 g/dL [facility] Clin Pathology Hematocrit 45.4 41.0 - 53.0 % [facility] Clin Pathology Mean Cell 85.9 80.0 - 96.0 fL [facility] Volume [facility] Clin Pathology Mean Cell 28.6 27.0 - 33.0 pg [facility] Hemoglobin [facility] Clin Pathology Mean Cell Hgb 33.2 32 - 36 g/dL [facility] Conc [facility] Clin Pathology Red Cell Dist 15.1 (H) 11.5 - 14.5 % [facility] Width [facility] Clin Pathology Platelet Count 267 150 - 400 10*3/uL [facility] Clin Pathology Differential Automated Diff [facility] Type [facility] Clin Pathology Neutrophil 71 % [facility]ology Lymphocyte 19 % [facility]ology Monocyte 6 % [facility] Clin Pathology Eosinophil 4 % [facility] Clin Pathology Basophil 0 % [facility] Clin Pathology Abs Neutrophil 5.88 1.80 - 7.00 10*3/uL [facility] Clin Pathology Abs Lymphocyte 1.56 1.20 - 4.00 10*3/uL [facility] Clin Pathology Abs Monocyte 0.52 0.00 - 0.80 10*3/uL [facility] Clin Pathology Abs Eosinophil 0.37 0.00 - 0.50 10*3/uL [facility] Clin Pathology Abs Basophil 0.03 0.00 - 0.20 10*3/uL [facility] Clin Pathology Nucleated Red 0 0 - 0 /100{WBCs} [facility] Blood Cells [facility] Clin Pathology Specimen EDTA Whole Blood Performing Organization Address City/State/ZIP Code P johnathon Number [facility] [address] [place], [place] [address] PATHOLOGY [facility] [address] [place], [place] [address] Clin Pathology * Comprehensive Metabolic Panel (02/20/2021 10:19 AM EDT) Albumin 3.9 3.5 - 5.2 g/dL [facility] Clin Pathology Bilirubin, 0.3 <1.2 mg/dL [facility] Total [facility] Clin Pathology Calcium 9.1 8.6 - 10.0 mg/dL [facility] Clin Pathology Chloride 104 98 - 107 mmol/L [facility] Clin Pathology Creatinine 1.00 0.70 - 1.20 mg/dL [facility] Clin Pathology Glucose 80 70 - 140 mg/dL [facility] Clin Pathology Alkaline 96 40 - 129 U/L [facility] Phosphatase [facility] Clin Pathology Potassium 3.6 3.4 - 5.1 mmol/L [facility] Clin Pathology Total Protein 7.9 6.4 - 8.3 g/dL [facility] Clin Pathology Sodium 142 136 - 145 mmol/L [facility] Clin Pathology AST/SGO 24 <40 U/L [facility] Clin Pathology Blood Urea 11 6 - 20 mg/dL [facility] Nitrogen [facility] Clin Pathology Osmolality, Clarke 292 275.0 - 300.0 [facility] mosm/kg [facility] Clin Pathology BUN/Cre Ratio 11 [facility] Clin Pathology Bicarbonate 25 22 - 29 mmol/L [facility] Clin Pathology ALT/SGP 38 <41 U/L [facility] Clin Pathology Anion Gap 13 8 - 15 mmol/L [facility] Clin Pathology GFR Non >90 >60 mL/min/1.73m2 [facility] [employer] [facility] [employer] 2008 Med Univ Clin CDK-EPI Pathology GFR >90 >60 mL/min/1.73m2 [facility] 2009 Med Univ Clin CKD-EPI Pathology Specimen Plasma Performing Organization Address City/[facility] Code P johnathon Number [facility] [address] [place], [place] [address] [address] Clin Pathology * Levetiracetam level (02/20/2021 10:19 AM EDT) Levetiracetam 14 12 - 46 ug/mL [facility] Clin Pathology Specimen Serum Performing Organization Address [facility] Code P johnathon Number [facility] [address] [place], [place] [address] [address] Clin Pathology * Topiramate level (02/20/2021 10:19 AM EDT) Topiramate 15.7 <25.0 ug/mL [facility] Clin Pathology Specimen Plasma Performing Organization Address 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
--- OUTSIDE RECORDS SUMMARY | 2021-05-09 12:40 | CCD ---
Author Author [facility] Organization [facility] Address Unknown Phone Unavailable Care Team Providers Care Property Portfolio Officer Name Role Phone Ryan Dixon Unavailable PROBLEMS ALLERGIES ENCOUNTERS from 1988 to 2021-02-22 IMMUNIZATIONS SOCIAL HISTORY REASON FOR REFERRAL No Information VITAL SIGNS MEDICATIONS PROCEDURES No Information RESULTS No Results REASON FOR VISIT MEDICAL (GENERAL) HISTORY Goals Section Health Concerns MEDICAL EQUIPMENT No Information MENTAL STATUS FUNCTIONAL STATUS ASSESSMENTS No Information PLAN OF TREATMENT Insurance Providers
--- OUTSIDE RECORDS SUMMARY | 2021-05-09 12:41 | CCD | Summary of Care ---
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 Engineer Name Role Phone Jeet Ramirez MD PCP Unavailable Reason for Referral * Diagnostic Radiology (Routine) Referred By Contact Referred To Contact Status Reason Specialty Diagnoses / Procedures Christal Mahajan DO [address] [place] [phone] Email: [email or web address] Open Radiology Diagnoses Seizure P rocedures MR Brain with and without Contrast Electronically signed by Christal Mahajan DO at * Diagnostic Medical (Routine) Referred By Contact Referred To Contact Status Reason Specialty Diagnoses / Procedures Christal Mahajan DO [address] [place] [phone] Email: [email or web address] Eeg Emg [facility] [address] [phone] Authorized Neurology Diagnoses Seizure P rocedures EEG Sleep Deprived Electronically signed by Christal Mahajan DO at Reason for Visit * Reason Comments New Patient * Consultation (STAT) Referred By Contact Referred To Contact Status Reason Specialty Diagnoses / Procedures Orthopedics Private Practice [facility] [address] [place] [phone] Christal Mahajan DO [address] [phone] Email: [email or web address] Authorized Specialty Services Neurology Diagnoses Required Seizures Encounter Details Care Team Description Date Type Department Christal Mahajan [address] [facility] 4th [place] [address] Seizure (Primary Dx) 01/30/2021 Office Visit [facility] Neurology a t [facility] [address] [facility] 4th Floor, [address] [place] [address] Allergies Comments Active Allergy Reactions Severity Noted Date Phenytoin Hives Medium 08/09/2013 Seasonal Environmental Itching Low 01/26/2021 Naproxen Hives Medium 08/09/2013 Acetaminophen-Codeine Hives Medium 08/09/19 14 documented as of this encounter (statuses as of 02/09/2021) Medications End Date Status Medication Sig Dispensed [...] by 0 tablet mouth daily. Active D3-50 59695 units capsule Take by mouth 08/29 once [...] mg by 0 Tablet (CLARITIN) mouth daily 02/01/2021 Discontinued (Medication Rec oncilation) albuterol (PROVENTIL) Take 2.5 mg 0 (2.5 MG/3ML) 0.083% by nebulizer solution nebulization every 6 (six) hours as needed for Wheezing. 02/06/2021 Discontinued (Stop Taking at Discharge) ibuprofen (ADVIL,MOTRIN) Take 600 mg 0 600 MG tablet by mouth Three times daily as needed for Pain 02/06/2021 Discontinued (Stop Taking at Discharge) doxycycline (MONODOX) 100 Take 100 mg 0 09/25 MG capsule by mouth Two 9 Times Daily 02/01/2021 Discontinued (Medication Rec oncilation) INCRUSE ELLIPTA 62.5 INHALE 1 PUFF 5 MCG/INH AEPB ONCE DAILY 9 02/01/2021 Discontinued (Medication Rec oncilation) Albuterol Sulfate HFA 108 Inhale 2 0 (90 Base) MCG/ACT puffs into Inhalation Aerosol the lungs Solution (PROVENTIL every 4 HFA;VENTOLIN HFA) (four) hours as needed 02/01/2021 Discontinued (Medication Rec oncilation) Ondansetron HCl 4 MG Oral Take 4 mg by 0 Tablet (Zofran) mouth every 8 (eight) hours as needed 02/01/2021 Discontinued (Medication Rec oncilation) Misc. Devices (DURABLE Use as 1 each 0 MEDICAL EQUIPMENT SEE directed. 0 SIG) XX [facility] Roll A Bout Knee Scooter Dx: 02/01/2021 Discontinued (Medication Rec oncilation) Misc. Devices (DURABLE Use as 1 each 0 MEDICAL EQUIPMENT SEE directed. 1 SIG) XX [facility] Roll A Bout Knee Scooter Dx: 02/01/2021 Discontinued (Medication Rec oncilation) Misc. Devices (DURABLE Use as 1 each 0 MEDICAL EQUIPMENT SEE directed. 1 SIG) XX [facility] Shower bench Dx: M19.071 02/01/2021 Discontinued (Medication Rec oncilation) Methocarbamol 750 MG Oral Take 750 mg 0 Tablet (ROBAXIN) by mouth Two times daily as needed 02/06/2021 Discontinued (Reorder) Docusate Sodium 100 MG Take 100 mg 0 Oral Capsule (COLACE) by mouth daily 02/01/2021 Discontinued (Medication Rec oncilation) Vitamin B-12 100 MCG Oral Take 50 mcg 0 Tablet (CYANOCOBALAMIN) by mouth daily 02/01/2021 Discontinued (Medication Rec oncilation) Gabapentin 100 MG Oral Take 100 mg 0 Capsule (NEURONTIN) by mouth nightly documented as of this encounter (statuses as of 02/09/2021) Active Problems Patient Care Coordination Note Pt has been [facility] connected in the past, however, [employer] & other service coordination services ended as of 10/26/19. At this time, the pt is only enrolled in "Voucher Respite" services. He is eligible to be connected with a new urgent care physician assistant, by contacting Alvaro Hawkins ([phone]) Problem Noted Date Ankle arthropathy 02/02/2021 GERD [...] as of this encounter (statuses as of 02/09/2021) Immunizations Name Administration Dates Next Due Influenza [...] on file Date Recorded COVID-19 Exposure Response 01/30/2021 7:17 AM EDT In the last month, have you been in contact with No / Unsure someone who was confirmed or suspected to have Coronavirus / COVID-19? documented as of this encounter Last Filed Vital Signs Reading Time Taken Comments Vital Sign 123/73 01/30/2021 7:46 AM EDT Blood Pressure 89 01/30/2021 7:46 AM EDT Pulse - - Temperature - - Respiratory Rate - - Oxygen Saturation - - Inhaled Oxygen Concentration 168.1 kg (370 lb 9.6 oz) 01/30/2021 7:46 AM EDT Weight 180.3 cm (5' 11") 01/30/2021 7:46 AM EDT Height 51.69 01/30/2021 7:46 AM EDT Body Mass Index documented in this encounter Progress Notes * Felicekaitlin Christal, DO - 01/30/2021 7:45 AM EDT [facility] NEUROLOGY AT [address], [address] [facility] [phone] Dept: [phone] Dept REFERRING PHYSICIAN: Dr. Ramirez CHIEF COMPLAINT: History of Epilepsy SEIZURE HISTORY AND EVOLUTION: Davie Trujillo is a 30 y.o., right handed male who is here in the clinic for evaluation of epilepsy. The patient is accompanied by himself to the clinic today. Seizure onset was at age of 1 Seizure Type I: ? bedtime - Aura: [...] Aura: Sometimes "weird feeling ? Dizzy". Father sTtaed he may complain of feeling ill or [...] last a few min with no recall. Last 2 weeks ago. He has imbalance and dizziness and uses a walker for assistance in ambulation. When he last seen by CLYDE Noel in January he reported having increased [...] He denies tongue biting or inco ntinence. EPILEPSY RISK FACTORS - History of head trauma: no - History of meningitis/encephalitis/SENIOR ANALYTIC CONSULTANT infection: no - History of febrile seizure: no - Family history of seizures: no - Other: ? problems. PNEA RISK FACTORS/PSYCHIATRIC HISTORY Patient appears to be significantly depressed ANTIEPILEPTIC DRUGS (AED) and OTHER TREATMENTS Current AEDs: Keppra 500 mg BID Topamax 200 mg BID Previous AEDs: Carbamazepine Depakote ER Lamictal Dilantin VNS: No SIDE EFFECTS AND INTERVENTION None COMPLIANCE WITH TREATMENT None PAST MEDICAL HISTORY Past Medical History: Diagnosis [...] History: Procedure Laterality Date ABDOMINAL SURGERY exploratory APPENDECTOMY CHOLECYSTECTOMY COLECTOMY CYSTOSCOPY RESECTION N/A 02/01/2014 Procedure: INSERT,TEMP INDWELLING BLAD CATH,SIMPLE; Surgeon: Nieves Alvarado MD; Location: [facility]; Service: Urology; Laterality: N/A; HERNIA REPAIR PENILE PROSTHESIS IMPLANT MD CYSTOSCOPY,DIL URETHRAL STRICTURE N/A 01/02/2015 Procedure: CYSTOSCOPY, URETHRAL DILATON /INCISION WITH C-ARM.PER ; Surgeon: Nieves Alvarado MD; Location: OR [facility]; Service: Urology; Laterality: N/A; MD CYSTOSCOPY,DIL URETHRAL STRICTURE N/A 02/01/2014 Procedure: CYSTOSCOPY AND URETHRAL DILATION, CASTILLO WITH C-ARM [RIGID SCOPE]; Surgeon: Nieves Alvarado MD; Location: OR [facility]; Service: Urology; Laterality: N/A; MD RECONSTRUC ANT MALE URETHRA N/A 05/28/2017 Procedure: CYSTOSCOPY, ANTERIOR URETHROPLASTY, BUCCAL MUCOSAL GRAFT; Surgeon: Bradly Gutierrez MD; Location: OR [facility]; Service: Urology; Laterality: N/A; TONSILLECTOMY FAMILY HISTORY Family History Problem Relation Age of Onset COPD Father Asthma Father Arthritis Father Diabetes Father Mental illness Father Sleep apnea Father Cancer Father prostate Osteoporosis Father Parkinsonism Father Hypertension Father Arthritis Mother Diabetes Mother Mental illness Mother Sleep apnea Mother No Known Problems Brother SOCIAL HISTORY Former smoker Social History Socioeconomic History Marital status: Single [...] Social Gatherings with Friends and Family: Attends Judaism Services: Active Member of Clubs or Organizations: [...] Outpatient Medications Marked as Taking for the 01/30/21 encounter (Office Visit) with Christal Mahajan, DO Medication Sig Dispense Refill Extra Info cetirizine (ZYRTEC) 10 MG tablet Take 10 mg by mouth daily. 1 D3-50 89835 units capsule Take by mouth once a week 11 1 Desvenlafaxine Succinate ER 100 MG Oral Tablet Extended Release 24 Hour ( PRISTIQ) Take 100 mg by mouth daily 1 Fluticasone-Salmeterol(sensor) 232-14 MCG/ACT Aerosol Powder Breath Activ ated Inhale 1 Inhaler into the lungs Two Times Daily 1 levETIRAcetam 500 MG Oral Tablet (KEPPRA) Take 500 mg by mouth Two Times Daily 1 Loratadine 10 MG Oral Tablet (CLARITIN) Take 10 mg by mouth daily 1 Mirtazapine 15 MG Oral Tablet (REMERON) Take 15 mg by mouth daily 1 montelukast (SINGULAIR) 10 MG tablet Take 10 mg by mouth nightly. 1 omeprazole (PRILOSEC) 40 MG capsule Take 40 mg by mouth Two Times Daily 1 sucralfate (CARAFATE) 1 G tablet Take 1 g by mouth Two times daily as nee ded 1 topiramate (TOPAMAX) 200 MG tablet Take 200 mg by mouth Two Times Daily. 1 Trospium Chloride 20 MG Oral Tablet (SANCTURA) Take 1 tablet by mouth Two times daily before breakfast and dinner 60 tablet 2 1 [DISCONTINUED] albuterol (PROVENTIL) (2.5 MG/3ML) 0.083% nebulizer soluti on Take 2.5 mg by nebulization every 6 (six) hours as needed for Wheezing. 1 [DISCONTINUED] Albuterol Sulfate HFA 108 (90 Base) MCG/ACT Inhalation Aer osol Solution (PROVENTIL HFA;VENTOLIN HFA) Inhale 2 puffs into the lungs every 4 (four) hours as needed 1 [DISCONTINUED] Docusate Sodium 100 MG Oral Capsule (COLACE) Take 100 mg b y mouth daily 1 [DISCONTINUED] doxycycline (MONODOX) 100 MG capsule Take 100 mg by mouth Two Times Daily 1 [DISCONTINUED] Gabapentin 100 MG Oral Capsule (NEURONTIN) Take 100 mg by mouth nightly 1 [DISCONTINUED] ibuprofen (ADVIL,MOTRIN) 600 MG tablet Take 600 mg by mout h Three times daily as needed for Pain 1 [DISCONTINUED] INCRUSE ELLIPTA 62.5 MCG/INH AEPB INHALE 1 PUFF ONCE DAILY 5 1 [DISCONTINUED] Methocarbamol 750 MG Oral Tablet (ROBAXIN) Take 750 mg by mouth Two times daily as needed 1 [DISCONTINUED] Ondansetron HCl 4 MG Oral Tablet (Zofran) Take 4 mg by nehal th every 8 (eight) hours as needed 1 [DISCONTINUED] Vitamin B-12 100 MCG Oral Tablet (CYANOCOBALAMIN) Take 50 mcg by mouth daily 1 Lab results: Lab Results Component Value [...] 02/05/2021 PREVIOUS INVESTIGATIONS Imaging: MRI 05-17-14 - [facility] Radiology - Normal EMG [facility] Neurology - Left peroneal nerve compression injury; no evidence of neuropathy EEGs 04/27/14 [facility] Neurology - Normal 08/30/14 - [facility] Neurology - "R > L [...] again for video-EEG monitoring by CLYDE Valdez [address] [place] [phone] TECHNICAL DESCRIPTION: his Computer Assisted Digital Video [...] No clinical correlate was seen EXAMINATION Vitals: 01/30/21 0746 BP: 123/73 Pulse: 89 Weight: (!) 168.1 kg (370 lb 9.6 oz) Height: 1.803 m (5' 11") General appearance: Alert, cooperative, no distress, appears stated age Head: Normocephalic, without obvious abnormality, atraumatic Eyes: Conjunctiva not pale, sclera not icteric Ears/Nose/Throat: no discharge Neck: Supple, trachea midline, no carotid bruit Lungs: Clear to auscultation bilaterally Heart: Regular rate and rhythm, S1/S2 heard without extra sounds or murmurs Abdomen: Soft, non-tender, bowel sounds heard in all four quadrants, no organome renato Extremities: No cyanosis or edema, pulses 2+ Skin: No rashes or lesions seen Neurological exam: Alert and oriented x3, speech normal. Pupils symmetric and reactive to light. Extraocular movements intact with no nystagmus. Visual west intact by confront ation. Face symmetric, V1-V3 intact to light touch and pinprick. Tongue is in midline, palate elevates upward symmetrically. Muscle tone and bulk normal, motor strength 5/5 throughout Sensation intact to light touch and pinprick in upper and lower extremities No resting or positional tremor. Reflexes 2+ and symmetric in the upper and lower extremities. Finger to nose intact bilaterally. SAE intact bilaterally. Gait narrow based and steady, able to walk on heels, toes and tandem walk. ASSESSMENT/PLAN - Medications:Tpamax 200 mg and Keppra 500 mg BID Side effects including irritab ilitywere discussed with the patient. Will do epilepsy work up - MRI brail er, EEG sl, - Order blood level of AEDs The patient agreed with the plan as outlined above. Return to clinic in months or sooner if needed. Christal Mahajan I spent 65 minutes today on a patient encounter reviewing charting, seeing patie nt, medications, tests or procedures, documenting clinical information in medica l records and communicating result's to the patient and patient's family or care givers. documented in this encounter Plan of Treatment Care Team Description Date Type Specialty Christal Mahajan DO [address] [phone] 02/14/2021 Appointment Neurology Kota No MD [address] [place] [address] [phone] 02/14/2021 Office Visit Orthopedic Surgery Christal Mahajan DO [address] [phone] 02/20/2021 Office Visit Neurology Bradly Gutierrez MD [address] [place], [place] [phone] 04/24/2021 Office Visit Urology Order Schedule Name Type Priority Associated Diag noses 1 Occurrences starting 01/30/2021 until 01/30/2022 EEG Sleep Deprived Neurology Routine Seizure Expected: 01/30/2021, Expires: MR Brain with and without Imaging Routine Seiz ure Contrast 1 Occurrences starting 01/30/2021 until 08/02/2021 Topiramate level Lab Routine Seizure 1 Occurrences starting 01/30/2021 until 08/02/2021 Levetiracetam level Lab Routine Seizure 1 Occurrences starting 01/30/2021 until 08/02/2021 CBC and Differential Lab Routine Seizure 1 Occurrences starting 01/30/2021 until 08/02/2021 Comprehensive Metabolic Lab Routine Seizur e Panel Health Maintenance Due Date Last Done Comments MMR Vaccines (1 of 1 - 1989 Standard series) Varicella Vaccines (1 [...] X80mm- 16mm/Thd - Right: Ankle SYNT [employer]ES [id number] [id number] Implanted: Qty: 1 on 01/30/2021 by Kota No MD at [facility] [id number] / / Screw Monique.6.5 X85mm- 16mm/Thd - SYN[employer]ES [id number] [employer] [place] Implanted: Qty: 1 on 01/30/2021 by Kota No MD at [facility] documented as of this encounter Results Not on filedocumented in this encounter Visit Diagnoses Diagnosis Seizure - Primary Other convulsions documented in this encounter
--- OUTSIDE RECORDS SUMMARY | 2021-05-09 12:43 | CCD ---
Author Author [facility] Organization [facility] Address Unknown Phone Unavailable Care Team Providers Care Drafting Clerk Name Role Phone Erica LAWSON MD Unavailable Unavailable Erica LAWSON MD Unavailable Unavailable Erica LAWSON MD Unavailable Unavailable Erica LAWSON MD Unavailable Unavailable Erica LAWSON MD Unavailable Unavailable Erica LAWSON MD Unavailable Unavailable Erica LAWSON MD Unavailable Unavailable Erica LAWSON MD Unavailable Unavailable Erica LAWSON MD Unavailable Unavailable LAWSON, E PADMAJA WAGNER Unavailable Unavailable LAWSON, E PADMAJA WAGNER Unavailable Unavailable LAWSON, E PADMAJA WAGNER Unavailable Unavailable LAWSON, E PADMAJA WAGNER Unavailable Unavailable LAWSON, E PADMAJA WAGNER Unavailable Unavailable LAWSON, E PADMAJA WAGNER Unavailable Unavailable LAWSON, E PADMAJA WAGNER Unavailable Unavailable LAWSON, E PADMAJA WAGNER Unavailable Unavailable LAWSON, E PADMAJA WAGNER Unavailable Unavailable LAWSON, E PADMAJA WAGNER Unavailable Unavailable LAWSON, E PADMAJA WAGNER Unavailable Unavailable LAWSON, E PADMAJA WAGNER Unavailable Unavailable LAWSON, E PADMAJA WAGNER Unavailable Unavailable LAWSON, E PADMAJA WAGNER Unavailable Unavailable LAWSON, E PADMAJA WAGNER Unavailable Unavailable LAWSON, E PADMAJA WAGNER Unavailable Unavailable LAWSON, E PADMAJA WAGNER Unavailable Unavailable LAWSON, E PADMAJA WAGNER Unavailable Unavailable LAWSON, E PADMAJA WAGNER Unavailable Unavailable LAWSON, E PADMAJA WAGNER Unavailable Unavailable LAWSON, E PADMAJA WAGNER Unavailable Unavailable LAWSON, E PADMAJA WAGNER Unavailable Unavailable LAWSON, E PADMAJA WAGNER Unavailable Unavailable LAWSON, E PADMAJA WAGNER Unavailable Unavailable LAWSON, E PADMAJA WAGNER Unavailable Unavailable LAWSON, E PADMAJA WAGNER Unavailable Unavailable LAWSON, E PADMAJA WAGNER Unavailable Unavailable LAWSON, E PADMAJA WAGNER Unavailable Unavailable LAWSON, E PADMAJA WAGNER Unavailable Unavailable LAWSON, E PADMAJA WAGNER Unavailable Unavailable LAWSON, E PADMAJA WAGNER Unavailable Unavailable LAWSON, E PADMAJA WAGNER Unavailable Unavailable LAWSON, E PADMAJA WAGNER Unavailable Unavailable LAWSON, E PADMAJA WAGNER Unavailable Unavailable LAWSON, E PADMAJA WAGNER Unavailable Unavailable LAWSON, E PADMAJA WAGNER Unavailable Unavailable LAWSON, E PADMAJA WAGNER Unavailable Unavailable LAWSON, E PADMAJA WAGNER Unavailable Unavailable LAWSON, E PADMAJA WAGNER Unavailable Unavailable LAWSON, E PADMAJA WAGNER Unavailable Unavailable LAWSON, E PADMAJA WAGNER Unavailable Unavailable LAWSON, E PADMAJA WAGNER Unavailable Unavailable LAWSON, E PADMAJA WAGNER Unavailable Unavailable LAWSON, E PADMAJA WAGNER Unavailable Unavailable LAWSON, E PADMAJA WAGNER Unavailable Unavailable LAWSON, E PADMAJA WAGNER Unavailable Unavailable LAWSON, E PADMAJA WAGNER Unavailable Unavailable LAWSON, E PADMAJA WAGNER Unavailable Unavailable LAWSON, E PADMAJA WAGNER Unavailable Unavailable HESTER, LETITIA MD Unavailable Unavailable [...] Unavailable Unavailable LETITIA HESTER MD Unavailable Unavailable Stephen GEORGES MD Unavailable [...] Unavailable Unavailable Stephen GEORGES MD Unavailable Unavailable TITOFF, MADISON Unavailable Unavailable Titoff, Madison Unavailable Titoff, Madison Unavailable Titoff, Madison Unavailable Titoff, Madison Unavailable Titoff, Madison Unavailable Titoff, Madison Unavailable Titoff, Madison Unavailable Titoff, Madison Unavailable Titoff, Madison Unavailable Titoff, Madison Unavailable Titoff, Madison Unavailable Titoff, Madison Unavailable Titoff, Madison Unavailable Titoff, Madison Unavailable Titoff, Madison Unavailable Titoff, Madison Unavailable Titoff, Madison Unavailable Titoff, Madison Unavailable Kentrell Negrete MD Unavailable Unavailable Kentrell Negrete MD Unavailable Unavailable Kunnumpurath, F Shannan MD [...] Unavailable Unavailable Kentrell Negrete MD Unavailable Unavailable DAVISGabriel [id number] Unavailable Unavailable DEMARTINI, M ADITYA PA Unavailable [...] Unavailable DEMARTINI, M ADITYA PA Unavailable Unavailable HITESH MELGAR MD Unavailable Unavailable HITESH MELGAR MD Unavailable Unavailable HITESH MELGAR MD Unavailable Unavailable AMERHITESH DOUGLAS MD Unavailable Unavailable HITESH MELGAR MD Unavailable Unavailable HITESH MELGAR MD Unavailable Unavailable AMERHITESH DOUGLAS MD Unavailable Unavailable AMERHITESH DOUGLAS MD Unavailable Unavailable AMERHITESH DOUGLAS MD Unavailable Unavailable AMERHITESH DOUGLAS MD Unavailable Unavailable HITESH MELGAR MD Unavailable Unavailable HITESH MELGAR MD Unavailable Unavailable MANFRED, O ROBERT WAGNER [...] ROBERT WAGNER Unavailable Unavailable MANFRED, O ROBERT WAGENR Unavailable Unavailable MANFRED, O ROBERT WAGNER Unavailable [...] Unavailable MANFRED, O ROBERT WAGNER Unavailable Unavailable Jonathon SHOOK MD Unavailable Unavailable [...] BOONE, A SANTOS MD Unavailable Unavailable BOONEJonathon Meadows MD Unavailable Unavailable BOONE, Jonathon GRAHAM MD Unavailable Unavailable BOONE, Jonathon GRAHAM MD Unavailable Unavailable TURRIN, CLEO Unavailable Unavailable TURRIN, CLEO Unavailable Unavailable TURRIN, CLEO Unavailable Unavailable TURRIN, CLEO Unavailable Unavailable CHU, G EDWARD RPA Unavailable Unavailable CHU, G EDWARD RPA Unavailable Unavailable CHU, G EDWARD RPA Unavailable Unavailable CHU, G EDWARD RPA Unavailable Unavailable CHU, G EDWARD RPA Unavailable Unavailable CHU, G EDWARD RPA Unavailable Unavailable CHU, G EDWARD RPA Unavailable Unavailable CHU, G EDWARD RPA Unavailable Unavailable CHU, G EDWARD RPA Unavailable Unavailable CHU, G EDWARD RPA Unavailable Unavailable CHU, G EDWARD RPA Unavailable Unavailable CHU, G EDWARD RPA Unavailable Unavailable CHU, G EDWARD RPA Unavailable Unavailable CHU, G EDWARD RPA Unavailable Unavailable CHU, G EDWARD RPA Unavailable Unavailable CHU, G EDWARD RPA Unavailable Unavailable CHU, G EDWARD RPA Unavailable Unavailable CHU, G EDWARD RPA Unavailable Unavailable CHU, G EDWARD RPA Unavailable Unavailable CHU, G EDWARD RPA Unavailable Unavailable CHU, G EDWARD RPA Unavailable Unavailable CHU, G EDWARD RPA Unavailable Unavailable CHU, G EDWARD RPA Unavailable Unavailable CHU, G EDWARD RPA Unavailable Unavailable CHU, G EDWARD RPA Unavailable Unavailable CHU, G EDWARD RPA Unavailable Unavailable CHU, G EDWARD RPA Unavailable Unavailable CHU, G EDWARD RPA Unavailable Unavailable CHU, G EDWARD RPA Unavailable Unavailable CHU, G EDWARD RPA Unavailable Unavailable CHU, G EDWARD RPA Unavailable Unavailable CHU, G EDWARD RPA Unavailable Unavailable CHU, G EDWARD RPA Unavailable Unavailable CHU, G EDWARD RPA Unavailable Unavailable CHU, G EDWARD RPA Unavailable Unavailable BRYON, MEÑO LAVERN AIRLINE STEWARDESS-C Unavailable Unavailable BRYON, MEÑO LAVERN AIRLINE STEWARDESS-C Unavailable Unavailable BRYON, MEÑO LAVERN AIRLINE STEWARDESS-C Unavailable Unavailable BRYON, MEÑO LAVREN AIRLINE STEWARDESS-C Unavailable Unavailable BRYON, MEÑO LAVERN AIRLINE STEWARDESS-C Unavailable Unavailable BRYON, MEÑO LAVERN AIRLINE STEWARDESS-C Unavailable Unavailable BRYON, MEÑO LAVERN AIRLINE STEWARDESS-C Unavailable Unavailable BRYON, MEÑO LAVERN AIRLINE STEWARDESS-C Unavailable Unavailable BRYON, MEÑO LAVERN AIRLINE STEWARDESS-C Unavailable Unavailable BRYONMEÑOSEA AIRLINE STEWARDESS-C Unavailable Unavailable BRYONMEÑOSEA AIRLINE STEWARDESS-C Unavailable Unavailable BRYONMEÑOSEA AIRLINE STEWARDESS-C Unavailable Unavailable BRYON, MEÑO SOTOSEA AIRLINE STEWARDESS-C Unavailable Unavailable BRYONMEÑOSEA AIRLINE STEWARDESS-C Unavailable Unavailable BRYONMEÑOSEA AIRLINE STEWARDESS-C Unavailable Unavailable BRYON, MEÑO SOTOSEA AIRLINE STEWARDESS-C Unavailable Unavailable BRYONMEÑOSEA AIRLINE STEWARDESS-C Unavailable Unavailable ANTECOL, Sofi GOODEN MD Unavailable Unavailable ANTECOL, Sofi GOODEN MD Unavailable Unavailable ANTECOL, Sofi GOODEN MD Unavailable Unavailable ANTECOL, Sofi GOODEN MD Unavailable Unavailable ANTECOL, Sofi GOODEN MD Unavailable Unavailable ANTECOL, Sofi GOODEN MD Unavailable Unavailable ANTECOL, Sofi GOODEN MD Unavailable Unavailable ANTECOL, Sofi GOODEN MD Unavailable Unavailable ANTECOL, Sofi GOODEN MD Unavailable Unavailable ANTECOL, Sofi GOODEN MD Unavailable Unavailable ANTECOL, Sofi GOODEN MD Unavailable Unavailable ANTECOL, Sofi GOODEN MD Unavailable Unavailable ANTECOL, Sofi GOODEN MD Unavailable Unavailable ANTECOL, Sofi GOODEN MD Unavailable Unavailable ANTECOL, Sofi GOODEN MD Unavailable Unavailable ANTECOL, Sofi GOODEN MD Unavailable Unavailable ANTECOL, Sofi GOODEN MD Unavailable Unavailable ANTECOL, Sofi GOODEN MD Unavailable Unavailable ANTECOL, Sofi GOODEN MD Unavailable Unavailable ANTECOL, Sofi GOODEN MD Unavailable Unavailable ANTECOL, Sofi GOODEN MD Unavailable Unavailable ANTECOL, Sofi GOODEN MD Unavailable Unavailable ANTECOL, Sofi GOODEN MD Unavailable Unavailable ANTECOL, Sofi GOODEN MD Unavailable Unavailable ANTECOL, Sofi GOODEN MD Unavailable Unavailable ANTECOL, Sofi GOODEN MD Unavailable Unavailable ANTECOL, Sofi GOODEN MD Unavailable Unavailable ANTECOL, Sofi GOODEN MD Unavailable Unavailable ANTECOL, Sofi GOODEN MD Unavailable Unavailable ANTECOL, Sofi GOODEN MD Unavailable Unavailable ANTECOL, Sofi GOODEN MD Unavailable Unavailable ANTECOL, Sofi GOODEN MD Unavailable Unavailable ANTECOL, Sofi GOODEN MD Unavailable Unavailable ANTECOL, Sofi GOODEN MD Unavailable Unavailable ANTECOL, Sofi GOODEN MD Unavailable Unavailable ANTECOL, Sofi GOODEN MD Unavailable Unavailable ANTECOL, Sofi GOODEN MD Unavailable Unavailable ANTECOL, Sofi GOODEN MD Unavailable Unavailable ANTECOL, Sofi GOODEN MD Unavailable Unavailable ANTECOL, Sofi GOODEN MD Unavailable Unavailable ANTECOL, Sofi GOODEN MD Unavailable Unavailable ANTECOL, Sofi GOODEN MD Unavailable Unavailable ANTECOL, Sofi GOODEN MD Unavailable Unavailable ANTECOL, Sofi GOODEN MD Unavailable Unavailable ANTECOL, Sofi GOODEN MD Unavailable Unavailable ANTECOL, Sofi GOODEN MD Unavailable Unavailable ANTECOL, Sofi GOODEN MD Unavailable Unavailable ANTECOL, Sofi GOODEN MD Unavailable Unavailable ANTECOL, Sofi GOODEN MD Unavailable Unavailable ANTECOL, Sofi GOODEN MD Unavailable Unavailable ANTECOL, Sofi GOODEN MD Unavailable Unavailable ANTECOL, Sofi GOODEN MD Unavailable Unavailable ANTECOL, Sofi GOODEN MD Unavailable Unavailable ANTECOL, Sofi GOODEN MD Unavailable Unavailable OBEN, T MANOJ MD Unavailable Unavailable OBEN, T MANOJ MD Unavailable Unavailable OBEN, T MANOJ MD Unavailable Unavailable OBEN, T MANOJ MD Unavailable Unavailable OBEN, T MANOJ MD Unavailable Unavailable OBEN, T MANOJ MD Unavailable Unavailable OBEN, T MANOJ MD Unavailable Unavailable OBEN, T MANOJ MD Unavailable Unavailable OBEN, T MANOJ MD Unavailable Unavailable OBEN, T MANOJ MD Unavailable Unavailable OBEN, T MANOJ MD Unavailable Unavailable OBEN, T MANOJ MD Unavailable Unavailable OBEN, T MAONJ MD Unavailable Unavailable OBEN, T MANOJ MD Unavailable Unavailable OBEN, T MANOJ MD Unavailable Unavailable OBEN, T MANOJ MD Unavailable Unavailable OBEN, T MANOJ MD Unavailable Unavailable OBEN, T MANOJ MD Unavailable Unavailable OBEN, T MANOJ MD Unavailable Unavailable OBEN, T MANOJ MD Unavailable Unavailable OBEN, T MANOJ MD Unavailable Unavailable OBEN, T MANOJ MD Unavailable Unavailable OBEN, T MANOJ MD Unavailable Unavailable OBEN, T MANOJ MD Unavailable Unavailable OBEN, T MANOJ MD Unavailable Unavailable OBEN, T MANOJ MD Unavailable Unavailable OBEN, T MANOJ MD Unavailable Unavailable OBEN, T MANOJ MD Unavailable Unavailable OBEN, T MANOJ MD Unavailable Unavailable OBEN, T MANOJ MD Unavailable Unavailable OBEN, T MANOJ MD Unavailable Unavailable OBEN, T MANOJ MD Unavailable Unavailable OBEN, T MANOJ MD Unavailable Unavailable OBEN, T MANOJ MD Unavailable Unavailable OBEN, T MANOJ MD Unavailable Unavailable OBEN, T MANOJ MD Unavailable Unavailable OBEN, T MANOJ MD Unavailable Unavailable OBEN, T MANOJ MD Unavailable Unavailable OBEN, T MANOJ MD Unavailable Unavailable OBEN, T MANOJ MD Unavailable Unavailable OBEN, T MANOJ MD Unavailable Unavailable OBEN, T MANOJ MD Unavailable Unavailable OBEN, T MANOJ MD Unavailable Unavailable OBEN, T MANOJ MD Unavailable Unavailable OBEN, T MANOJ MD Unavailable Unavailable OBEN, T MANOJ MD Unavailable Unavailable OBEN, T MANOJ MD Unavailable Unavailable OBEN, T MANOJ MD Unavailable Unavailable OBEN, T MANOJ MD Unavailable Unavailable OBEN, T MANOJ MD Unavailable Unavailable Lionel ROCK MD Unavailable Unavailable Lionel ROCK MD Unavailable Unavailable Lionel ROCK MD Unavailable Unavailable Lionel ROCK MD Unavailable Unavailable Lionel ROCK MD Unavailable Unavailable Lionel ROCK MD Unavailable Unavailable Lionel ROCK MD Unavailable Unavailable CARLOS, L MADALYN PA Unavailable Unavailable CARLOS, L MADALYN PA Unavailable Unavailable CARLOS, L MADALYN PA Unavailable Unavailable CARLOS, L MADALYN PA Unavailable Unavailable CARLOS, L MADALYN PA Unavailable Unavailable CARLOS, L MADALYN PA Unavailable Unavailable CARLOS, L MADALYN PA Unavailable Unavailable CARLOS, L MADALYN PA Unavailable Unavailable CARLOS, L MADALYN PA Unavailable Unavailable CARLOS, L MADALYN PA Unavailable Unavailable CARLOS, L MADALYN PA Unavailable Unavailable CARLOS, L MADALYN PA Unavailable Unavailable CARLOS, L MADALYN PA Unavailable Unavailable CARLOS, L MADALYN PA Unavailable Unavailable CARLOS, L MADALYN PA Unavailable Unavailable CARLOS, L MADALYN PA Unavailable Unavailable CARLOS, L MADALYN PA Unavailable Unavailable CARLOS, L MADALYN PA Unavailable Unavailable CARLOS, L MADALYN PA Unavailable Unavailable CARLOS, L MADALYN PA Unavailable Unavailable CARLOS, L MADALYN PA Unavailable Unavailable CARLOS, L MADALYN PA Unavailable Unavailable VANVALMiroslava DONALDSON MD Unavailable Unavailable VANVALKENBURGMiroslava MD Unavailable Unavailable VANVALKENBURGMiroslava MD Unavailable Unavailable VANVALKENMiroslava DOTSON MD Unavailable Unavailable VANVALKENMiroslava DOTSON MD Unavailable Unavailable VANVALKENBURGMiroslava MD Unavailable Unavailable VANVALKENBURGMiroslava MD Unavailable Unavailable VANVALKENBURGMiroslava MD Unavailable Unavailable VANVALKENMiroslava DOTSON MD Unavailable [...] Unavailable Unavailable VANVALKENMiroslava DOTSON MD Unavailable Unavailable VANVALKENBURGMiroslava MD Unavailable Unavailable VANVALKENMiroslava DOTSON MD Unavailable Unavailable VANVALKENMiroslava DOTSON MD Unavailable Unavailable VANVALKENMiroslava DOTSON MD Unavailable Unavailable VANVALKENBURGMiroslava MD Unavailable Unavailable [...] Miroslava MORAN MD Unavailable Unavailable VANVALKENBURG, Miroslava MOARN MD Unavailable Unavailable VANVALKENBURG, Miroslava MORAN MD [...] MD Unavailable Unavailable VANVALKENBURGMiroslava MD Unavailable Unavailable LETITIA HESTER MD Unavailable Unavailable LETITIA HESTER MD Unavailable Unavailable LETITIA HESTER MD Unavailable Unavailable LETITIA HESTER MD Unavailable Unavailable LETITIA HESTER MD Unavailable Unavailable LETITIA HESTER MD Unavailable Unavailable LETITIA HESTER MD Unavailable Unavailable HESTER, LETITIA MD Unavailable [...] Unavailable Unavailable HESTER, LETITIA MD Unavailable Unavailable VULCANO, L SOHAM Unavailable Unavailable Re-disclosure Warning The records that you are [...] is protected by Article 27-F of the [facility] Public Health law. If you continue you may have access to information: Regarding HIV / AIDS; Provided by facilities licensed or operated by the [facility] Office of Mental Health; or Provided by the [facility] Office for People With Developmental Disabilities. If such information is present, then the following [facility] mandated warning applies: This information [...] Description Substance Reaction Status Data Source(s ) Naproxen, Dilentin, Tylenol, Seasonal, Codeine Naproxe n, Dilentin, Tylenol, Seasonal, Codeine Naproxen, Dilentin, Tylenol, Seasonal, Codeine active [facility]SM[facility] ([facility]) Miscellaneous allergy Seasonal Seasonal [facility] ([facility]) Drug allergy Tylenol Tylenol [facility] ([facility]) Drug allergy Dilantin Dilantin [facility] ([facility]) Drug allergy Naproxen Naproxen [facility] ([facility]) Environmental Allergy ENVIRONMENTAL ENVIRONMENTAL Itching [facility] No Known Food Allergies No Known Food Allergies [facility] Propensity to adverse reactions DILANTIN DILANTIN [facility] Drug allergy CODEINE CODEINE [facility] Drug allergy NAPROXEN NAPROXEN [facility] Family History Family Member Name Family Member Gender Family Member Status Date o f Status Description Data Source(s) Unknown Condition [facility] Encounters Encounter Providers Location Date Indications Data Source(s ) Outpatient Attender: DEAN SIERRA MD 07/04/2021 12: 00:00 AM [facility] Outpatient Attender: SANTOS SHOOK MD 06/26/2021 12:00:0 0 AM [facility] Outpatient Referrer: MADISON PEPE 05/31/2021 12:00:00 A M [facility] Outpatient Attender: Madison PepeAttender: MADISON SHAH 05/23/2021 12:00:00 AM [facility] Outpatient Referrer: DEAN SIERRA MD 05/04/20 12:00:00 AM EDT Unspecified fracture of right talus, [facility] Unspecified fracture of right talus, seq [facility]ela Outpatient Attender: DEAN SIERRA MDReferrer: LETITIA HETSER MD 05/04/2021 12:00:00 AM [facility] Outpatient Attender: SANTOS SHOOK MD 04/24/2021 12:00:0 0 AM [facility] 04/18/2021 01:00:00 AM EDT - 021 12:15:40 PM EDT [facility]) Outpatient Referrer: DEAN SIERRA MD 03/23/20 12:00:00 AM EDT Primary osteoarthritis, right ankle and foot [facility] Primary osteoarthritis, right ankle and foot Outpatient Referrer: DEAN SIERRA MD 03/23/20 12:00:00 AM EDT Primary osteoarthritis, right ankle and foot [facility] Primary osteoarthritis, right ankle and foot Outpatient Attender: DEAN SIERRA MD [id number] 03/23/2021 12:00:00 AM EDT [facility] Outpatient Attender: DEAN SIERRA MD 03/23/2021 12: 00:00 AM EDT [facility] Outpatient Attender: MADISON Velez erendira: Madison ViverosoffReferrer: MADISON PEPE 03/07/2021 12:00:00 AM EDT Unspecified convulsio [facility] Unspecified convulsions Outpatient Attender: Madison ViverosoffAttender: MADISON SHAH [id number] 02/20/2021 12:00:00 AM EDT - 02/20/2021 10:04:38 AM EDT [facility] Outpatient Attender: DEAN SIERRA MDReferrer : LETITIA HESTER MD [id number] 02/14/2021 12:00:00 AM EDT [facility] Outpatient Attender: MADISON Velez erendira: Madison PepeReferrer: MADISON PEPE 02/14/2021 12:00:00 AM EDT [facility] Inpatient Attender: PADMAJA LAWSON MD 02/06 02:55:00 PM EDT - 04/17/2021 11:36:00 AM EDT [facility] Patient discharged. 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 Outpatient Attender: Madison ViverosoffAttender: MADISON SHAH [id number] 01/30/2021 12:00:00 AM EDT - 01/30/2021 08:31:33 AM EDT [facility] Outpatient Attender: SOHAM Matthewsferrenik: DEAN FERREIRA MD [id number] 01/27/2021 12:00:00 AM EDT - 01/28/2021 12:00:00 AM [facility] Unknown [address] [facility] [address] 01/24/2021 12:00:00 AM EDT eCW1 ([facility]) Outpatient Referrer: DEAN SIERRA MD 01/23/2021 12: 00:00 AM [facility] Outpatient Attender: MADISYN CHU RPA 01/20 09:54:42 AM EDT - 01/20/2021 10:29:53 AM EDT [employer] ([facility] ) Outpatient Attender: DEAN SIERRA MDReferrer : LETITIA HESTER MD [id number] 01/17/2021 12:00:00 AM EDT [facility] Outpatient Referrer: DEAN SIERRA MD 01/18/20 12:00:00 AM EDT Primary osteoarthritis, right ankle and foot [facility] Primary osteoarthritis, right ankle and foot Outpatient Referrer: DEAN SIERRA MD 01/18/20 12:00:00 AM EDT Primary osteoarthritis, right ankle and foot [facility] Primary osteoarthritis, right ankle and foot [place] [address] [facility] [address] 01/15/2021 12:00:00 AM EDT eCW1 ([facility]) Outpatient Attender: SANTOS SHOOK MD [id number] 12:00:00 AM EDT - 01/09/2021 02:27:[address] [facility] [address] [facility] [address] 01/09/2021 12:00:00 AM EDT eCW1 ([facility]) [place] [address] [facility] [address] 01/09/2021 12:00:00 AM EDT eCW1 ([facility]) [place] [address] [facility] [address] 01/08/2021 12:00:00 AM EDT eCW1 ([facility]) Unknown [address] [facility] [address] 01/03/2021 12:00:00 AM EDT eCW1 ([facility]) [place] [address] [facility] [address] 01/02/2021 12:00:00 AM EDT eCW1 ([facility]) Unknown [address] [facility] [address] 12/27/2020 12:00:00 AM EDT eCW1 ([facility]) Outpatient Attender: SANTOS SHOOK MD [id number] 07/2020 12:00:00 AM EDT - 12/26/2020 01:54:16 [facility] [address] [facility] [address] 12/19/2020 12:00:00 AM EDT eCW1 ([facility]) Outpatient Attender: LAVERN Lu/Yonathan/Chucho/Nik segovia 12/12/2020 12:45:00 PM EDT [facility] ([facility]) [place] [address] [facility] [address] 12/11/2020 12:00:00 AM EDT eCW1 ([facility]) Unknown [address] [facility] [address] 12/06/2020 12:00:00 AM EDT eCW1 ([facility]) Unknown [address] [facility] [address] 12/05/2020 12:00:00 AM EDT eCW1 ([facility]) Outpatient Attender: DEAN SIERRA MD 11/29/2020 12: 00:00 AM [facility] Outpatient Attender: SANTOS [id number] 10/2020 12:00:00 AM EDT - 11/29/2020 12:00:[address] [facility] Attender: SANTOS SHOOK MD 11/28/2020 12:00:0 0 AM [facility] Unknown [address] [facility] [address] 11/24/2020 12:00:00 AM EDT eCW1 ([facility]) Office Visit Attender: ROBERT Lu/Yonathan/Chucho/Key carpenter 11/20/2020 08:30:00 AM EDT [facility] ([facility]) Unknown [address] [facility] [place] [address] 11/15/2020 12:00:00 AM EDT [facility] [place] [address] [facility] [place] [address] 11/13/2020 12:00:00 AM EDT eCW1 ([facility]) Outpatient Attender: DEAN SIERRA MD 11/08/2020 12: 00:00 AM EDT [facility] Outpatient Attender: BERKLEY OROPEZA MD Main Office 10/30/2020 01:30:00 PM EDT MEDROSALIND ([facility]) Emergency Attender: MADALYN TANG EMERGENCY ROOM-ER 06:01:00 PM EDT - 10/24/2020 07:50:00 PM EDT [facility] Patient discharged. Unknown [address] [facility] [place] [address] 10/24/2020 12:00:00 AM EDT [facility]CW1 ([facility]) Unknown [address] [facility] [place] [address] 10/12/2020 12:00:00 AM EDT eCW1 ([facility]) Unknown [address] [facility] [place] [address] 10/06/2020 12:00:00 AM EST eCW1 ([facility]) Unknown [address] [facility] [place] [address] 10/05/2020 12:00:00 AM EST eCW1 ([facility]) Outpatient [address] [facility] [place] [address] 10/02/2020 12:00:00 AM EST eCW1 ([facility]) Unknown [address] [facility] [place] [address] 09/22/2020 12:00:00 AM EST eCW1 ([facility]) Unknown [address] [facility] [place] [address] 09/22/2020 12:00:00 AM EST eCW1 ([facility]) Outpatient [address] [facility] [place] [address] 09/21/2020 12:00:00 AM EST eCW1 ([facility]) Unknown [address] [facility] [place] [address] 09/19/2020 12:00:00 AM EST eCW1 ([facility]) Outpatient Attender: ROBERT Lu/Yonathan/Chucho/Re indl 09/13/2020 12:30:00 PM EST MEDENT ([facility]) Unknown [address] [facility] [place] [address] 09/07/2020 12:00:00 AM EST eCW1 ([facility]) Unknown [address] [facility] [place] [address] 09/07/2020 12:00:00 AM EST eCW1 ([facility]) Outpatient [address] [facility] [place] [address] 09/01/2020 12:00:00 AM EST eCW1 ([facility]) Unknown [address] [facility] [place] [address] 08/28/2020 12:00:00 AM EST eCW1 ([facility]) Unknown [address] [facility] [place] [address] 08/25/2020 12:00:00 AM EST eCW1 ([facility]) Outpatient Attender: ROBERT Lu/Yonathan/Chucho/Re indl 08/23/2020 01:00:00 PM EST MEDENT ([facility]) Outpatient Attender: LAVERN Lu/Yonathan/Chucho/R eindl 08/17/2020 12:15:00 PM EST MED[facility] ([facility]) Unknown [address] [facility] [place] [address] 08/15/2020 12:00:00 AM EST eCW1 ([facility]) Outpatient [address] [facility] [place] [address] 08/11/2020 12:00:00 AM EST eCW1 ([facility]) Unknown [address] [facility] [place] [address] 08/10/2020 12:00:00 AM EST eCW1 ([facility]) Outpatient [address] [facility] [place] [address] 08/03/2020 12:00:00 AM EST eCW1 ([facility]) Outpatient Attender: MADISON PEPE 07/17/2020 12:00:00 A M [facility] Outpatient Attender: DEAN SIERRA MD [id number] 06/28/2020 12:00:00 AM EST Primary osteoarthritis, right ankle and foot [facility] Primary osteoarthritis, right ankle and foot Outpatient Attender: MADISON PEPE 06/26/2020 12:00:00 A [facility] Outpatient [address] [facility] [address] 06/12/2020 12:00:00 AM EST eCW1 ([facility]) Outpatient Attender: SANTOS SHOOK MD [id number] 04/2020 12:00:00 AM [facility] - 06/06/2020 02:43:30 PM EST Post-traumatic bulbous urethral stricture [facility] Post-traumatic bulbous urethral strictur e Outpatient Attender: MADISON PEPE 06/05/2020 12:00:00 A M [facility] Outpatient Attender: Shannan Negrete MDConsultant: LETITIA HESTER MD 06/01/2020 01:00:00 PM EST - 06/01/2020 01:00:00 PM [facility] Outpatient Attender: MADISON PEPE 05/24/2020 12:00:00 A M [facility] Unknown [address] [facility] [place] [address] 05/22/2020 12:00:00 AM EDT eCW1 ([facility]) Unknown [address] [facility] [place] [address] 05/22/2020 12:00:00 AM EDT eCW1 ([facility]) Unknown [address] [facility] [place] [address] 05/18/2020 12:00:00 AM EDT eCW1 ([facility]) Outpatient [address] [facility] [place] [address] 05/15/2020 12:00:00 AM EDT eCW1 ([facility]) Outpatient Attender: SANTOS SHOOK MD [id number] 12:00:00 AM EDT - 05/09/2020 02:16:06 PM T [facility] Outpatient Referrer: ADITYA TANG 04/26/2020 12:00:00 AM EDT Primary osteoarthritis, right ankle and [facility] Primary osteoarthritis, right ankle and foot Outpatient Referrer: ADITYA TANG 04/26/2020 12:00:00 AM EDT Primary osteoarthritis, right ankle and [facility] Primary osteoarthritis, right ankle and foot Outpatient Attender: ADITYA TANG [id number] 04/26/2020 12:00:00 AM EDT Primary osteoarthritis, right ankle and [facility] Primary osteoarthritis, right ankle and foot Outpatient Attender: Shannan Negrete MDConsultant: LETITIA HESTER MD 04/20/2020 02:36:00 PM EDT - 04/20/2020 02:36:00 PM EDT [facility] Outpatient Attender: LETITIA HESTER MDConsultant: LETITIA Madison MD 04/05/2020 10:11:00 AM EDT - 04/05/2020 10:11:00 AM [facility] Outpatient Attender: ALESHIA GEORGES MDConsultant: LETITIA Madison MD 03/29/2020 01:51:00 PM EDT - 03/29/2020 01:51:00 PM T [facility] Outpatient Attender: LETITIA HESTER MDConsultant: LETITIA Madison MD 03/27/2020 12:49:00 PM EDT - 03/27/2020 12:49:00 PM EDT [facility] Outpatient Attender: DEAN SIERRA MD 03/24/2020 12: 00:00 AM EDT [facility] Emergency Attender: CLEO ALLYNConsultant: LETITIA Madison MD 03/22/2020 03:26:00 PM EDT - 03/22/2020 05:25:00 PM EDT [facility] Patient discharged. Outpatient Attender: ALTAGRACIA DAVIS [id number]: LETITIA HANSEN MD 03/20/2020 12:00:00 AM EDT [facility] Outpatient Attender: DEAN SIERRA MD 03/15/2020 12: 00:00 AM EDT [facility] Emergency Attender: HITESH MELGAR MDConsultant: LETITIA HESTER MD 03/09/2020 05:46:00 PM EDT - 03/10/2020 12:45:00 AM EDT [facility] Patient discharged. Outpatient Attender: LETITIA HESTER MDConsultant: LETITIA Madison MD 02/23/2020 10:36:00 AM EDT - 02/23/2020 10:36:00 AM EDT [facility] Outpatient Attender: MANOJ ROCK MDConsultant: LETITIA HESTER MD 12/15/2019 11:32:18 AM EDT [facility] Immunizations Vaccine Date Status Description Data Source(s) COVID-19 VACCINE Moderna 02/16/2021 12:00:00 AM EDT completed [facility]IS Vaccine Series Complete: NOThis Data was Submitted to [facility] Via [employer]. 207 12/29/2020 12:00:00 AM EDT completed <td I D="[id number]">Moderna SARS-CoV-2 Vaccine</td><td>12/29/2020</td><td></td> [facility] COVID-19 VACCINE Moderna 12/29/2020 12:00:00 AM EDT completed [facility]SIIS Vaccine Series Complete: NOThis Data was Submitted to [facility] Via [employer]. New in 2011. IIV4 06/01/2020 12:00:00 AM EST completed <t d ID="[id number]">Influenza Quad IM Pres Free (0.5 mL dose)</td><td>06/01/2020, 07/19/2019</td><td></td> [facility] Medications Medication Brand Name Start Date Product Form Dose Route Admi nistrative Instructions Pharmacy Instructions Status Indications Reaction Description Data Source(s) Methocarbamol 750 MG Methocarbamol 04/18/2021 01:00:00 AM EDT 1.0 {tablet} completed NETSMART ([facility]) Keppra 500 MG Keppra 04/18/2021 01:00:00 AM EDT 1.0 {tablet} completed NETSMART ([facility]) AirDuo Digihaler 232-14 MCG/ACT AirDuo Digihaler 04/18/2021 01:00:00 AM EDT completed NETSMART ( [facility]) oxyCODONE HCl 5 MG oxyCODONE HCl 04/18/2021 01:00:00 AM EDT completed NETSMART ([facility]) [facility] Omeprazole 20 MG [facility] Omeprazole 04/18/2021 01:00:00 AM EDT completed NETSMART ([facility]) Montelukast Sodium 10 MG Montelukast Sodium 04/18/2021 01:00:00 AM EDT completed NETSMART ([facility]) Mirtazapine 15 MG Mirtazapine 04/18/2021 01:00:00 AM EDT completed NETSMART ([facility]) Ibuprofen 600 MG Ibuprofen 04/18/2021 01:00:00 AM EDT completed NETSMART ([facility]) Vitamin D-2 50,000 U(1.25 mg) Vitamin D-2 04/18/2021 01:00:00 AM EDT completed NETSMART ([facility]) Topiramate 200 MG Topiramate 04/18/2021 01:00:00 AM EDT completed NETSMART ([facility] ) Doxycycline Monohydrate 100 MG Doxycycline Monohydrate 04/18 01:00:00 AM EDT completed NETSMAR T ([facility]) Sucralfate 1 GM Sucralfate 04/18/2021 01:00:00 AM EDT completed NETSMART ([facility]) Triamcinolone Acetonide 0.1 % Triamcinolone Acetonide 2020 01:00:00 AM EDT completed NETSMAR T ([facility]) Trospium Chloride 20 MG Trospium Chloride 04/18/2021 01:00:00 AM EDT completed NETSMART ([facility]) Desvenlafaxine ER 100 MG Desvenlafaxine ER 04/18/2021 01:00:00 AM EDT completed NETSMART ([facility]) Claritin 10 MG Claritin 04/18/2021 01:00:00 AM EDT completed NETSMART ([facility]) Aspirin 325 MG Aspirin 04/18/2021 01:00:00 AM EDT completed NETSMART ([facility]) SM Pain Reliever 325 MG SM Pain Reliever 04/18/2021 01:00:00 AM EDT completed NETSMART ([facility]) POLYETHYLENE GLYCOL 3350 142 MG/ML Oral Solution Polyethylene Glycol 3350 17 GM Oral Packet (MIRALAX) Polyethylene Glycol 3350 17 GM Oral Packet (MIRALAX) 02/07/2021 12:00:00 AM EDT 17 g Oral active Take 1 packet by mouth daily for 3 daysPlease substitute bottle for packets, if packets are unavailable. [facility] Aspirin 325 MG Delayed Release Oral Tabl et Aspirin EC 325 MG Oral Tablet Delayed Release Aspirin EC 325 MG Oral Tablet Delayed Release 02/07/20 12:00:00 AM EDT 325 mg Oral active Take 1 t ablet by mouth daily Take with food, to help prevent blood clots [facility] Oxycodone Hydrochloride 5 MG Oral Tablet oxyCODONE HCl 5 MG Oral Tablet (ROXICODONE) oxyCODONE HCl 5 MG Oral Tablet (ROXICODONE) 02/06/2021 12:00:00 AM EDT mg Oral active Take 1-2 tablets by mouth every 6 (six) hours as needed (moderate to severe pain) for up to 7 days, Max Daily Dose: 40 mg [facility] sennosides, LONG TERM 8.6 MG Oral Tablet Senna 8.6 MG Oral T ablet Senna 8.6 MG Oral Tablet 02/06/2021 12:00:00 AM EDT 2 {tbl} Oral active Take 2 tablets by mouth daily as needed [facility] Methocarbamol 750 MG Oral Tablet Methocarbamol 750 MG Oral Tablet (ROBAXIN) Methocarbamol 750 MG Oral Tablet (ROBAXIN) 02/06/2021 12:00:00 AM EDT 750 mg Oral active Take 1 tablet by nehal th Two times daily as needed (pain) [facility] Docusate Sodium 100 MG Oral Capsule Docu sate Sodium 100 MG Oral Capsule (COLACE) Docusate Sodium 100 MG Oral Capsule (COLACE) 02/06/2021 12:00:00 AM EDT 100 mg Oral active Take 1 capsule by mouth Two Times Daily [facility] Docusate Sodium 100 MG Oral Capsule docusate sodium (C OLACE) capsule 100 mg docusate sodium (COLACE) capsule 100 mg 02/03/2021 09:00:00 PM EDT 100 mg Oral active 100 mg, Oral, 2 Times Daily, First dose on 02/03/21 at 2100, For 30 days [facility] Medication administered onsite POLYETHYLENE GLYCOL 3350 142 MG/ML Oral Solution polyethylene glycol (MIRALAX) packet 17 g polyethylene glycol (MIRALAX) packet 17 g 02/03/2021 1 0:45:00 AM EDT 17 g Oral active 17 g, Or al, Daily Standard, First dose on 02/03/21 at 1045, For 30 days
Mix in 8 ounces of water, juice or milk. Avoid use in patients who require thickened liquids due to potential increased risk for aspiration.
[facility] Medication administered onsite Magnesium Hydroxide 80 MG/ML Oral Suspen carlos magnesium hydroxide (MILK OF MAGNESIA) 400 MG/5ML oral suspension 45 mL magnesium hydroxide (MILK OF MAGNESIA) 400 MG/5ML oral suspension 45 mL 02/03/2021 10:41:51 AM EDT 45 mL Oral active 45 mL, Oral, D aily PRN, Constipation, Starting on 02/03/21 at 1041, For 30 days
If serum creatinine > 2 notify provider before administering.
[facility] Medication administered onsite 0.4 ML Enoxaparin sodium 100 MG/ML Prefi lled Syringe enoxaparin sodium (LOVENOX) injection 40 mg enoxaparin sodium (LOVENOX) injection 40 mg 02/01/2021 09:00:00 PM EDT 40 mg Subcutaneous active 40 mg, Subcutaneous, Every 12 hours Standard (2 times per day), First dose (after last modification) on Fri02/01/21 at 2100, For 30 doses [facility] Medication administered onsite 60 ACTUAT Budesonide 0.16 MG/ACTUAT / fo rmoterol fumarate 0.0045 MG/ACTUAT Metered Dose Inhaler budesonide-formoterol (SYMBICORT) 160-4.5 MCG/ACT inhaler 2 puff budesonide-formoterol (SYMBICORT) 160-4.5 MCG/ACT inha ler 2 puff 02/01/2021 08:00:00 PM EDT 2 {puff} Inhalation active 2 puff, Inhalation, 2 Times Daily, First dose on Fri02/01/21 at 2000, For 7 days
Shake well before using
[facility] Medication administered onsite Diphenhydramine Hydrochloride 25 MG Oral Capsule diphenhydrAMINE (BENADRYL) capsule 25 mg diphenhydrAMINE (BENADRYL) capsule 25 mg 01/31/2021 04 :10:44 PM EDT 25 mg Oral active 25 mg, O ral, Every 6 hours PRN, Itching, Starting on Fri01/31/21 at 1610, For 30 days [facility] Medication administered onsite Loratadine 10 MG Oral Tablet loratadine (CLARITIN) tab let 10 mg loratadine (CLARITIN) tablet 10 mg 01/31/2021 09:00:00 AM EDT 10 mg Oral active 10 mg, Oral, Daily Standard, First dose on Fri01/31/21 at 0900, For 30 days [facility] Medication administered onsite desvenlafaxine (PRISTIQ) 24 hr tablet 100 mg [id number] 01/31/2021 09:00:00 AM EDT 100 mg Oral active 100 mg, Oral, Daily Standard, First dose on Fri01/31/21 at 0900, For 30 days
Do not crush or chew.
[facility] Medication administered onsite Mirtazapine 15 MG Oral Tablet mirtazapine (REMERON) ta blet 15 mg mirtazapine (REMERON) tablet 15 mg 01/31/2021 09:00:00 AM EDT 15 mg Oral active 15 mg, Oral, Daily Standard, First dose on Fri01/31/21 at 0900, For 30 days [facility] Medication administered onsite Vitamin B 12 0.1 MG Oral Tablet vitamin B-12 (CYANOCOB ALAMIN) tablet 50 mcg vitamin B-12 (CYANOCOBALAMIN) tablet 50 mcg 01/31/2021 09:00:00 AM EDT 50 ug Oral active 50 mcg, Oral, Daily Standard, First dose on Fri01/31/21 at 0900, For 30 days [facility] Medication administered onsite 0.4 ML Enoxaparin sodium 100 MG/ML Prefi lled Syringe enoxaparin sodium (LOVENOX) injection 40 mg enoxaparin sodium (LOVENOX) injection 40 mg 01/31/2021 09:00:00 AM EDT 40 mg Subcutaneous aborted 40 mg, Subcutaneous, Daily Standard, First dose on Fri01/31/21 at 0900, For 30 days [facility] Medication administered onsite Docusate Sodium 100 MG Oral Capsule docusate sodium (C OLACE) capsule 100 mg docusate sodium (COLACE) capsule 100 mg 01/31/2021 09:00:00 AM EDT 100 mg Oral aborted 100 mg, Oral, Daily Standard, First dose on Fri01/31/21 at 0900, For 30 days [facility] Medication administered onsite pantoprazole 40 MG Delayed Release Oral Tablet pantoprazole (PROTONIX) EC tablet 40 mg pantoprazole (PROTONIX) EC tablet 40 mg 01/31/2021 07:30:00 AM E DT 40 mg Oral active 40 mg, Ora l, Before Breakfast, First dose on Fri01/31/21 at 0730, For 30 doses
Do not crush or chew
[facility] Medication administered onsite montelukast 10 MG Oral Tablet montelukast (SINGULAIR) tablet 10 mg montelukast (SINGULAIR) tablet 10 mg 01/30/2021 10:00:00 PM EDT 10 mg Oral active 10 mg, Oral, Nightly, First dose on Fri01/30/21 at 2200, For 30 days [facility] Medication administered onsite Cefazolin 1000 MG Injection ceFAZolin (ANCEF) IVPB 1 g in dextrose 5 % (premix) ceFAZolin (ANCEF) IVPB 1 g in dextrose 5 % (premix) 01/30/2021 10:00:00 PM EDT 1 g Intravenous completed 1 g, Intra venous, Administer over 30 Minutes, Every 8 hours, First dose on Fri01/30/21 at 2200, For 1 day [facility] Medication administered onsite gabapentin 100 MG Oral Capsule gabapentin (NEURONTIN) capsule 100 mg gabapentin (NEURONTIN) capsule 100 mg 01/30/2021 10:00:00 PM EDT 100 mg Oral active 100 mg, Oral, Nightly, Indic ations: continue home med, First dose on Fri01/30/21 at 2200, For 30 days [facility] Medication administered onsite Doxycycline Monohydrate 100 MG Oral Caps ule doxycycline (MONODOX) capsule 100 mg doxycycline (MONODOX) capsule 100 mg 01/30/2021 09:00:00 PM EDT 100 mg Oral completed 100 mg, Oral, 2 Times Daily, First dose (after last modification) on Fri01/30/21 at 2100, For 7 days [facility] Medication administered onsite topiramate 100 MG Oral Tablet topiramate (TOPAMAX) tab let 200 mg topiramate (TOPAMAX) tablet 200 mg 01/30/2021 09:00:00 PM EDT 200 mg Oral active 200 mg, Oral, 2 Times Daily, First dose on Fri01/30/21 at 2100, For 30 doses [facility] Medication administered onsite Levetiracetam 500 MG Oral Tablet levETIRAcetam (KEPPRA ) tablet 500 mg levETIRAcetam (KEPPRA) tablet 500 mg 01/30/2021 09:00:00 PM EDT 500 m g Oral active 500 mg, Oral, 2 Times Daily, First dose on Fri01/30/21 at 2100, For 30 days [facility] Medication administered onsite trospium chloride 20 MG Oral Tablet trospium (SANCTURA ) tablet 20 mg trospium (SANCTURA) tablet 20 mg 01/30/2021 05:30:00 PM EDT 20 mg Oral active 20 mg, Oral, Two times daily before breakfast and dinner, First dose on Fri01/30/21 at 1730, For 30 doses [facility] Medication administered onsite Methocarbamol 500 MG Oral Tablet methocarbamol (ROBAXI N) tablet 750 mg methocarbamol (ROBAXIN) tablet 750 mg 01/30/2021 05:03:09 PM EDT 75 0 mg Oral active 750 mg, Oral, 2 Times Daily PRN, Muscle spasms, Starting on Fri01/30/21 at 1703, For 30 days [facility] Medication administered onsite Bisacodyl 10 MG Rectal Suppository bisacodyl (DULCOLAX ) suppository 10 mg bisacodyl (DULCOLAX) suppository 10 mg 01/30/2021 05:03:08 PM EDT 10 mg Rectal active 10 mg, Rectal, Every 72 hours PRN, Constipation, Constipation, Starting on Fri01/30/21 at 1703, For 30 days
Hold if patient has had a BM in the past 2 days.
[facility] Medication administered onsite Levetiracetam 15 MG/ML Injectable Soluti on levETIRAcetam (KEPPRA) 1,500 mg in sodium chloride 100 mL (15 mg/mL) infusion (premix) levETIRAcetam (KEPPRA) 1,500 mg in sodium chloride 100 mL (15 mg/mL) infusion (premix) 01/30/2021 11:45:00 AM EDT 1500 mg Intravenous completed 1, 500 mg, Intravenous, at 400 mL/hr, Once, On Fri01/30/21 at 1145, For 1 dose, Pre-op [facility] Medication administered onsite Acetaminophen 325 MG Oral Tablet acetaminophen (TYLENO L) tablet 975 mg acetaminophen (TYLENOL) tablet 975 mg 01/30/2021 11:00:00 AM EDT 97 5 mg Oral completed 975 mg, Oral, O nce, On Fri01/30/21 at 1100, For 1 dose
Maximum daily dose of acetaminophen is 3,000 mg from all sources in 24 hours.
Pre-op [facility] Medication administered onsite gabapentin 300 MG Oral Capsule gabapentin (NEURONTIN) capsule 300 mg gabapentin (NEURONTIN) capsule 300 mg 01/30/2021 11:00:00 AM EDT 300 mg Oral completed Postoperative Pain 300 mg, Oral, Once, Indications: Postoperative Pain, On Fri01/30/21 at 1100, For 1 dose, Pre-op [facility] Postoperative Pain Medication administered onsite Calcium Chloride 0.0014 MEQ/ML / Potassi um Chloride 0.004 MEQ/ML / Sodium Chloride 0.103 MEQ/ML / Sodium Lactate 0.028 MEQ/ML Injectable Solution lactated ringers infusion lactated ringers infusion 01/30/2021 11:00:00 AM EDT Intravenous active at 100 mL/hr, Intravenous, Continuous, Starting on Fri01/30/21 at 1100, For 30 days
Keep Vein Open. Use Wide Tubing.
[facility] Medication administered onsite [facility]. Devices (DURABLE MEDICAL EQUIPMENT SEE SIG) XX [facility] 97 [id number] 01/18/2021 12:00:00 AM EDT aborted Use as directed. Shower bench Dx: M19.071 [facility]. Devices (DURABLE MEDICAL EQUIPMENT SEE SIG) XX [facility] 97 [id number] 01/17/2021 12:00:00 AM EDT aborted Use as directed. Roll A Bout Knee Scooter Dx: [facility] trospium chloride 20 MG Oral Tablet Tros pium Chloride 20 MG Oral Tablet (SANCTURA) Trospium Chloride 20 MG Oral Tablet (SANCTURA) 021 12:00:00 AM EDT 20 mg Oral active Take 1 t ablet by mouth Two times daily before breakfast and dinner [facility] 24 HR mirabegron 25 MG Extended Release Oral Tablet Mirabegron ER 25 MG Oral Tablet Extended Release 24 Hour (MYRBETRIQ) Mirabegron ER 25 MG Oral Tablet Extended Release 24 Hour (MYRBETRIQ) 01/09/2021 12:00:00 AM EDT 25 mg Oral active Take 1 tablet by mouth daily [facility] Fluticasone Propionate/Salmeterol Fluticasone Propionate/Benjamin meterol 12/12/2020 12:00:00 AM EDT RESPIRATORY active MEDENT ([facility]) Phenazopyridine hydrochloride 200 MG Del ayed Release Oral Tablet Phenazopyridine HCl 200 MG Oral Tablet (Pyridium) Phenazopyridine HCl 200 MG Oral Tablet (Pyridium) 11/28/2020 12:00:00 AM EDT 200 mg Oral active UTI symptoms Take 1 tablet by mouth Three times daily for 3 days [facility] UTI symptoms Nystatin 100 UNT/MG Topical Powder Nysta tin 301222 UNIT/GM External Powder (MYCOSTATIN) Nystatin 072826 UNIT/GM External Powder (MYCOSTATIN) 0 11/28/2020 12:00:00 AM EDT aborted UTI symptoms Apply to area under abdominal folds twice daily [facility] UTI symptoms Sumatriptan 100 MG Oral Tablet [Imitrex] Imitrex 10/29/2020 12:00: 00 AM EDT ORAL active [facility] ([facility] Biotin 1 MG Oral Capsule Biotin 10/29/2020 12:00:00 AM EDT ORAL active [facility] 24 HR Desvenlafaxine 50 MG Extended Release Oral Tablet [Lilliam stiq] Pristiq 10/29/2020 12:00:00 AM EDT ORAL active MEDENT ([facility]) 7 ACTUAT umeclidinium 0.0625 MG/ACTUAT Dry Powder Inha ler [Incruse] Incruse Ellipta 10/29/2020 12:00:00 AM EDT RESPIRATORY active MEDENT ([facility]) ciclopirox 80 MG/ML Topical Solution Ciclopirox 10/29/2020 12:00:00 A M EDT active [facility]ENT ([facility] Vitamin B 12 0.1 MG Oral Tablet Vitamin B12 10/29/2020 12:00:00 AM EDT ORAL active [facility] ([facility]) Ondansetron 4 MG Oral Tablet [Zofran] Zofran 10/29/2020 12:00:00 AM EDT active [facility] ([facility]) Omeprazole 20 MG Delayed Release Oral Tablet [Prilosec] Pril osec OTC 10/29/2020 12:00:00 AM EDT ORAL active M EDENT ([facility]) topiramate 200 MG Oral Tablet [Topamax] Topamax 10/29/2020 12:00:0 0 AM EDT ORAL active [facility] ([facility]) montelukast 10 MG Oral Tablet Montelukast Sodium 10/29/2020 12:00:00 AM EDT ORAL active [facility] ([facility]) cetirizine hydrochloride 10 MG Oral Tablet Cetirizine HCL 10/29/2020 12:00:00 AM EDT ORAL active [facility] ([facility]) Levetiracetam 500 MG Oral Tablet [Keppra] Keppra 10/29/2020 12:00 :00 AM EDT ORAL active [facility] ([facility]) Sucralfate 1000 MG Oral Tablet [Carafate] Carafate 10/29/2020 1 2:00:00 AM EDT ORAL active [facility] ([facility]) POLYETHYLENE GLYCOL 3350 142 MG/ML Oral Solution [Miralax] M iralax 10/29/2020 12:00:00 AM EDT ORAL active M EDENT ([facility]) Acetaminophen 325 MG Oral Tablet [Tylenol] Tylenol 10/29/2020 12:00:00 AM EDT ORAL active [facility] ([facility]) Ergocalciferol 72766 UNT Oral Capsule Vitamin D (Ergocalcife rol) 10/29/2020 12:00:00 AM EDT ORAL active M EDENT ([facility]) Albuterol 0.83 MG/ML Inhalant Solution Albuterol Sulfate 0 10/29/2020 12:00:00 AM EDT active [facility] ([facility]) Nystatin 688965 UNT/ML Topical Cream Nystatin 10/29/2020 12:00:00 AM EDT active [facility] ([facility]) Acetaminophen 325 MG Oral Tablet [Tylenol] Tylenol 325 MG Ty lenol 325 MG 09/23/2020 12:00:00 AM EST 1.0 {tablet_as_needed} active Tylenol 325 MG W1 ([facility]) MiraLax Mix-In [place] 17 GM MiraLax Mix-In [place] 17 GM 09/23/2020 12:00: 00 AM EST 1.0 {packet_mixed_with_8_ounces_of_fluid} active MiraLax Mix-In [place] 17 GM eCW1 ([facility]) MiraLax Mix-In [place] 17 GM MiraLax Mix-In [place] 17 GM 09/23/2020 12:00: 00 AM EST 1.0 {packet_mixed_with_8_ounces_of_fluid} active MiraLax Mix-In [place] 17 GM eCW1 ([facility]) Acetaminophen 325 MG Oral Tablet [Tylenol] Tylenol 325 MG Ty lenol 325 MG 09/23/2020 12:00:00 AM EST 1.0 {tablet_as_needed} active Tylenol 325 MG W1 ([facility]) Acetaminophen 325 MG Oral Tablet [Tylenol] Tylenol 325 MG Ty lenol 325 MG 09/23/2020 12:00:00 AM EST 1.0 {tablet_as_needed} active Tylenol 325 MG W1 ([facility]) Acetaminophen 325 MG Oral Tablet [Tylenol] Tylenol 325 MG Ty lenol 325 MG 09/23/2020 12:00:00 AM EST 1.0 {tablet_as_needed} active Tylenol 325 MG [facility] ([facility]) MiraLax Mix-In [place] 17 GM MiraLax Mix-In [place] 17 GM 09/23/2020 12:00: 00 AM EST 1.0 {packet_mixed_with_8_ounces_of_fluid} active MiraLax Mix-In [place] 17 GM eCW1 ([facility]) Acetaminophen 325 MG Oral Tablet [Tylenol] Tylenol 325 MG Ty lenol 325 MG 09/23/2020 12:00:00 AM EST 1.0 {tablet_as_needed} active Tylenol 325 MG W ([facility]) MiraLax Mix-In [place] 17 GM MiraLax Mix-In [place] 17 GM 09/23/2020 12:00: 00 AM EST 1.0 {packet_mixed_with_8_ounces_of_fluid} active MiraLax Mix-In [place] 17 GM eCW1 ([facility]) Acetaminophen 325 MG Oral Tablet [Tylenol] Tylenol 325 MG Ty lenol 325 MG 09/23/2020 12:00:00 AM EST 1.0 {tablet_as_needed} active Tylenol 325 MG W1 ([facility]) Acetaminophen 325 MG Oral Tablet [Tylenol] Tylenol 325 MG Ty lenol 325 MG 09/23/2020 12:00:00 AM EST 1.0 {tablet_as_needed} active Tylenol 325 MG W ([facility]) MiraLax Mix-In [place] 17 GM MiraLax Mix-In [place] 17 09/23/2020 12:00: 00 AM EST 1.0 {packet_mixed_with_8_ounces_of_fluid} active MiraLax Mix-In [place] 17 GM eCW1 ([facility]) Acetaminophen 325 MG Oral Tablet [Tylenol] Tylenol 325 MG Ty lenol 325 MG 09/23/2020 12:00:00 AM EST 1.0 {tablet_as_needed} active Tylenol 325 MG [facility] ([facility]) Acetaminophen 325 MG Oral Tablet [Tylenol] Tylenol 325 MG Ty lenol 325 MG 09/23/2020 12:00:00 AM EST 1.0 {tablet_as_needed} active Tylenol 325 MG [facility] ([facility]) Acetaminophen 325 MG Oral Tablet [Tylenol] Tylenol 325 MG Ty lenol 325 MG 09/23/2020 12:00:00 AM EST 1.0 {tablet_as_needed} active Tylenol 325 MG [facility] ([facility]) MiraLax Mix-In [place] 17 GM MiraLax Mix-In [place] 17 09/23/2020 12:00: 00 AM EST 1.0 {packet_mixed_with_8_ounces_of_fluid} active MiraLax Mix-In [place] 17 eCW1 ([facility]) MiraLax Mix-In [place] 17 GM MiraLax Mix-In [place] 17 09/23/2020 12:00: 00 AM EST 1.0 {packet_mixed_with_8_ounces_of_fluid} active MiraLax Mix-In [place] 17 GM eCW1 ([facility]) Acetaminophen 325 MG Oral Tablet [Tylenol] Tylenol 325 MG Ty lenol 325 MG 09/23/2020 12:00:00 AM EST 1.0 {tablet_as_needed} active Tylenol 325 MG eCW1 ([facility]) MiraLax Mix-In [place] 17 GM MiraLax Mix-In [place] 17 GM 09/23/2020 12:00: 00 AM EST 1.0 {packet_mixed_with_8_ounces_of_fluid} active MiraLax Mix-In [place] 17 GM eCW1 ([facility]) MiraLax Mix-In [place] 17 GM MiraLax Mix-In [place] 17 GM 09/23/2020 12:00: 00 AM EST 1.0 {packet_mixed_with_8_ounces_of_fluid} active MiraLax Mix-In [place] 17 GM eCW1 ([facility]) MiraLax Mix-In [place] 17 GM MiraLax Mix-In [place] 17 GM 09/23/2020 12:00: 00 AM EST 1.0 {packet_mixed_with_8_ounces_of_fluid} active MiraLax Mix-In [place] 17 GM W1 ([facility]) Acetaminophen 325 MG Oral Tablet [Tylenol] Tylenol 325 MG Ty lenol 325 MG 09/23/2020 12:00:00 AM EST 1.0 {tablet_as_needed} active Tylenol 325 MG W ([facility]) Acetaminophen 325 MG Oral Tablet [Tylenol] Tylenol 325 MG Ty lenol 325 MG 09/23/2020 12:00:00 AM EST 1.0 {tablet_as_needed} active Tylenol 325 MG W1 ([facility]) MiraLax Mix-In [place] 17 GM MiraLax Mix-In [place] 17 09/23/2020 12:00: 00 AM EST 1.0 {packet_mixed_with_8_ounces_of_fluid} active MiraLax Mix-In [place] 17 GM eCW1 ([facility]) MiraLax Mix-In [place] 17 GM MiraLax Mix-In [place] 17 GM 09/23/2020 12:00: 00 AM EST 1.0 {packet_mixed_with_8_ounces_of_fluid} active MiraLax Mix-In [place] 17 GM W1 ([facility]) MiraLax Mix-In [place] 17 GM MiraLax Mix-In [place] 17 GM 09/23/2020 12:00: 00 AM EST 1.0 {packet_mixed_with_8_ounces_of_fluid} active eCW1 ([facility]) MiraLax Mix-In [place] 17 GM MiraLax Mix-In [place] 17 09/23/2020 12:00: 00 AM EST 1.0 {packet_mixed_with_8_ounces_of_fluid} active MiraLax Mix-In [place] 17 GM eCW1 ([facility]) MiraLax Mix-In [place] 17 GM MiraLax Mix-In [place] 17 GM 09/23/2020 12:00: 00 AM EST 1.0 {packet_mixed_with_8_ounces_of_fluid} active MiraLax Mix-In [place] 17 GM eCW1 ([facility]) MiraLax Mix-In [place] 17 GM MiraLax Mix-In [place] 17 09/23/2020 12:00: 00 AM EST 1.0 {packet_mixed_with_8_ounces_of_fluid} active MiraLax Mix-In [place] 17 eCW1 ([facility]) MiraLax Mix-In [place] 17 GM MiraLax Mix-In [place] 17 09/23/2020 12:00: 00 AM EST 1.0 {packet_mixed_with_8_ounces_of_fluid} active MiraLax Mix-In [place] 17 GM eCW1 ([facility]) Acetaminophen 325 MG Oral Tablet [Tylenol] Tylenol 325 MG Ty lenol 325 MG 09/23/2020 12:00:00 AM EST 1.0 {tablet_as_needed} active Tylenol 325 MG eCW1 ([facility]) MiraLax Mix-In [place] 17 GM MiraLax Mix-In [place] 17 09/23/2020 12:00: 00 AM EST 1.0 {packet_mixed_with_8_ounces_of_fluid} active MiraLax Mix-In [place] 17 GM eCW1 ([facility]) Acetaminophen 325 MG Oral Tablet [Tylenol] Tylenol 325 MG Ty lenol 325 MG 09/23/2020 12:00:00 AM EST 1.0 {tablet_as_needed} active Tylenol 325 MG eCW1 ([facility]) MiraLax Mix-In [place] 17 GM MiraLax Mix-In [place] 17 GM 09/23/2020 12:00: 00 AM EST 1.0 {packet_mixed_with_8_ounces_of_fluid} active MiraLax Mix-In [place] 17 GM eCW1 ([facility]) Acetaminophen 325 MG Oral Tablet [Tylenol] Tylenol 325 MG Ty lenol 325 MG 09/23/2020 12:00:00 AM EST 1.0 {tablet_as_needed} ac tive eCW1 ([facility]) MiraLax Mix-In [place] 17 GM MiraLax Mix-In [place] 17 GM 09/23/2020 12:00: 00 AM EST 1.0 {packet_mixed_with_8_ounces_of_fluid} active MiraLax Mix-In [place] 17 GM eCW1 ([facility]) Acetaminophen 325 MG Oral Tablet [Tylenol] Tylenol 325 MG Ty lenol 325 MG 09/23/2020 12:00:00 AM EST 1.0 {tablet_as_needed} active Tylenol 325 MG eCW1 ([facility]) Acetaminophen 325 MG Oral Tablet [Tylenol] Tylenol 325 MG Ty lenol 325 MG 09/23/2020 12:00:00 AM EST 1.0 {tablet_as_needed} active Tylenol 325 MG eCW1 ([facility]) MiraLax Mix-In [place] 17 GM MiraLax Mix-In [place] 17 GM 09/23/2020 12:00: 00 AM EST 1.0 {packet_mixed_with_8_ounces_of_fluid} active MiraLax Mix-In [place] 17 GM eCW1 ([facility]) MiraLax Mix-In [place] 17 GM MiraLax Mix-In [place] 17 GM 09/23/2020 12:00: 00 AM EST 1.0 {packet_mixed_with_8_ounces_of_fluid} active MiraLax Mix-In [place] 17 GM eCW1 ([facility]) Acetaminophen 325 MG Oral Tablet [Tylenol] Tylenol 325 MG Ty lenol 325 MG 09/23/2020 12:00:00 AM EST 1.0 {tablet_as_needed} active Tylenol 325 MG eCW1 ([facility]) Acetaminophen 325 MG Oral Tablet [Tylenol] Tylenol 325 MG Ty lenol 325 MG 09/23/2020 12:00:00 AM EST 1.0 {tablet_as_needed} active Tylenol 325 MG eCW1 ([facility]) MiraLax Mix-In [place] 17 GM MiraLax Mix-In [place] 17 GM 09/23/2020 12:00: 00 AM EST 1.0 {packet_mixed_with_8_ounces_of_fluid} active MiraLax Mix-In [place] 17 GM eCW1 ([facility]) Acetaminophen 325 MG Oral Tablet [Tylenol] Tylenol 325 MG Ty lenol 325 MG 09/23/2020 12:00:00 AM EST 1.0 {tablet_as_needed} active Tylenol 325 MG eCW1 ([facility]) MiraLax Mix-In [place] 17 GM MiraLax Mix-In [place] 17 GM 09/23/2020 12:00: 00 AM EST 1.0 {packet_mixed_with_8_ounces_of_fluid} active MiraLax Mix-In [place] 17 GM eCW1 ([facility]) Acetaminophen 325 MG Oral Tablet [Tylenol] Tylenol 325 MG Ty lenol 325 MG 09/23/2020 12:00:00 AM EST 1.0 {tablet_as_needed} active Tylenol 325 MG eCW1 ([facility]) MiraLax Mix-In [place] 17 GM MiraLax Mix-In [place] 17 GM 09/23/2020 12:00: 00 AM EST 1.0 {packet_mixed_with_8_ounces_of_fluid} active MiraLax Mix-In [place] 17 GM eCW1 ([facility]) Acetaminophen 325 MG Oral Tablet [Tylenol] Tylenol 325 MG Ty lenol 325 MG 09/23/2020 12:00:00 AM EST 1.0 {tablet_as_needed} active Tylenol 325 MG eCW1 ([facility]) Acetaminophen 325 MG Oral Tablet [Tylenol] Tylenol 325 MG Ty lenol 325 MG 09/23/2020 12:00:00 AM EST 1.0 {tablet_as_needed} active Tylenol 325 MG eCW1 ([facility]) MiraLax Mix-In [place] 17 GM MiraLax Mix-In [place] 17 GM 09/23/2020 12:00: 00 AM EST 1.0 {packet_mixed_with_8_ounces_of_fluid} active MiraLax Mix-In [place] 17 GM eCW1 ([facility]) Acetaminophen 325 MG Oral Tablet [Tylenol] Tylenol 325 MG Ty lenol 325 MG 09/23/2020 12:00:00 AM EST 1.0 {tablet_as_needed} active Tylenol 325 MG eCW1 ([facility]) Acetaminophen 325 MG Oral Tablet [Tylenol] Tylenol 325 MG Ty lenol 325 MG 09/23/2020 12:00:00 AM EST 1.0 {tablet_as_needed} active Tylenol 325 MG eCW1 ([facility]) [facility]. Devices (DURABLE MEDICAL EQUIPMENT SEE SIG) XX [facility] 97 [id number] 06/28/2020 12:00:00 AM EST aborted Use as directed. Roll A Bout Knee Scooter Dx: [facility] Clindamycin 0.01 MG/MG Topical Gel Clindamycin Phospha te 1 % Clindamycin Phosphate 1 % 06/12/2020 12:00:00 AM EST 1.0 {application} active Clindamycin Phosphate 1 % eCW1 ([facility]) lidocaine (XYLOCAINE) 2 % urojet 20 mL [address]-3 0 01:30:00 PM EST 20 mL Urethral completed 20 mL, Urethr al, Once, 06/06/20 at 1330, For 1 dose [facility] Medication administered onsite Cephalexin 500 MG Oral Capsule cephALEXin (KEFLEX) cap gt 500 mg cephALEXin (KEFLEX) capsule 500 mg 06/06/2020 01:30:00 PM EST 500 mg Oral completed 500 mg, Oral, Once, 06/06/20 at 1330 , For 1 dose [facility] Medication administered onsite ciclopirox 10 MG/ML Medicated Shampoo Ciclopirox 1 % Ciclopi oneil 1 % 05/15/2020 12:00:00 AM EDT 1.0 {application} active Ciclopirox 1 % eCW1 ([facility]) Doxycycline Monohydrate 50 MG Oral Capsule Doxycycline Monoh ydrate 50 MG 05/15/2020 12:00:00 AM EDT 1.0 {capsule} active Doxycycline Monohydrate 50 MG eCW1 ([facility]) Doxycycline Monohydrate 50 MG Oral Capsule Doxycycline Monoh ydrate 50 MG 05/15/2020 12:00:00 AM EDT 1.0 {capsule} active Doxycycline Monohydrate 50 MG eCW1 ([facility]) alclometasone dipropionate 0.5 MG/ML Top ical Cream Alclometasone Dipropionate 0.05 % Alclometasone Dipropionate 0.05 % 05/15/2020 12:00:00 AM EDT 1.0 {application} active Alclometasone Dipr opionate 0.05 % eCW1 ([facility]) Doxycycline Monohydrate 50 MG Oral Capsule Doxycycline Monoh ydrate 50 MG 05/15/2020 12:00:00 AM EDT 1.0 {capsule} active Doxycycline Monohydrate 50 MG eCW1 ([facility]) alclometasone dipropionate 0.5 MG/ML Top ical Cream Alclometasone Dipropionate 0.05 % Alclometasone Dipropionate 0.05 % 05/15/2020 12:00:00 AM EDT 1.0 {application} active Alclometasone Dipr opionate 0.05 % eCW1 ([facility]) ciclopirox 10 MG/ML Medicated Shampoo Ciclopirox 1 % Ciclopi oneil 1 % 05/15/2020 12:00:00 AM EDT 1.0 {application} active Ciclopirox 1 % eCW1 ([facility]) ciclopirox 10 MG/ML Medicated Shampoo Ciclopirox 1 % Ciclopi oneil 1 % 05/15/2020 12:00:00 AM EDT 1.0 {application} active Ciclopirox 1 % eCW1 ([facility]) alclometasone dipropionate 0.5 MG/ML Top ical Cream Alclometasone Dipropionate 0.05 % Alclometasone Dipropionate 0.05 % 05/15/2020 12:00:00 AM EDT 1.0 {application} active Alclometasone Dipr opionate 0.05 % eCW1 ([facility]) ciclopirox 10 MG/ML Medicated Shampoo Ciclopirox 1 % Ciclopi oneil 1 % 05/15/2020 12:00:00 AM EDT 1.0 {application} active Ciclopirox 1 % eCW1 ([facility]) alclometasone dipropionate 0.5 MG/ML Top ical Cream Alclometasone Dipropionate 0.05 % Alclometasone Dipropionate 0.05 % 05/15/2020 12:00:00 AM EDT 1.0 {application} active Alclometasone Dipr opionate 0.05 % eCW1 ([facility]) Doxycycline Monohydrate 50 MG Oral Capsule Doxycycline Monoh ydrate 50 MG 05/15/2020 12:00:00 AM EDT 1.0 {capsule} active Doxycycline Monohydrate 50 MG eCW1 ([facility]) Docusate Sodium 100 MG Oral Capsule [DOK] DOK 100 MG O ral Capsule DOK 100 MG Oral Capsule 04/07/2020 12:00:00 AM EDT 100 mg Oral abort ed Take 100 mg by mouth daily [facility] Desvenlafaxine Succinate ER 100 MG Oral Tablet Extended Release 24 Hour (PRISTIQ) 9249-8794-87 04/07/2020 12:00:00 AM EDT 100 mg Oral active Take 100 mg by mouth daily [facility] Nystatin 100 UNT/MG Topical Powder Nysta tin [id number] UNIT/GM External Powder (MYCOSTATIN) Nystatin 536568 UNIT/GM External Powder (MYCOSTATIN) 0 03/27/2020 12:00:00 AM EDT aborted APPLY TO AFFECTED AREA S TWO TIMES A DAY ABDOMINAL FOLDS [facility] Methocarbamol 750 MG Oral Tablet Methocarbamol 750 MG Oral Tablet (ROBAXIN) Methocarbamol 750 MG Oral Tablet (ROBAXIN) 06/09/2019 12:00:00 AM EST aborted TAKE ONE TABLET BY MOUTH FOUR TI MES A DAY [facility]. Devices (DURABLE MEDICAL EQUIPMENT SEE SIG) [facility] [id number] 10/09/2018 12:00:00 AM EDT aborted Use as directed. Rolling walker with seat Dx: Right ankle arthritis [facility] Doxycycline Monohydrate 100 MG Oral Caps ule doxycycline (MONODOX) 100 MG capsule doxycycline (MONODOX) 100 MG capsule 10/07/2018 12:00:00 AM EDT 100 mg Oral aborted Take 100 mg by mouth Two Times Daily [facility] 7 ACTUAT umeclidinium 0.0625 MG/ACTUAT D ry Powder Inhaler [Incruse] INCRUSE ELLIPTA 62.5 MCG/INH AEPB INCRUSE ELLIPTA 62.5 MCG/INH AEPB 09/24/2018 12:00:00 AM EST aborted INHALE 1 PUFF ON CE DAILY [facility] gabapentin 100 MG Oral Capsule gabapentin (NEURONTIN) 100 MG capsule gabapentin (NEURONTIN) 100 MG capsule 03/03/2018 12:00:00 AM EDT 100 mg Oral aborted Take 100 mg by mouth Daily [facility] maalox/lidocaine/diphenhydrAMINE (RADIATION MIXTURE) 1:1:1 o ral suspension 05/29/2017 12:00:00 AM EDT 10 mL Swish & Spit aborted Swish and spit 10 mLs every 2 (two) hours as needed (For Mouth Pain)Pharmacy compound: Maalox, lidocaine viscous 2 %, Benadryl 12.5 mg/5 mL [facility] Nystatin 851401 UNT/ML Topical Cream nystatin (MYCOSTA TIN) cream nystatin (MYCOSTATIN) cream 09/27/2015 12:00:00 AM EST aborted Rash Use bid to affected area [facility] Rash Biotin 10 MG Oral Tablet Biotin 15266 MCG TABS Biotin 96541 MCG TAB S 12833 ug Oral aborted Take 10,000 mcg by mouth daily [facility] Melatonin 3 MG Oral Tablet melatonin 3 MG tablet melatonin 3 MG table t 5 mg Oral aborted Take 5 mg by m outh nightly Indications: Pt takes two tabs nightly [facility] doxycycline hyclate 50 MG Oral Capsule doxycycline ( BRAMYCIN) 50 MG capsule doxycycline (VIBRAMYCIN) 50 MG capsule 100 mg Oral aborted Take 100 mg by mouth every morning [facility] Vitamin B 12 0.1 MG Oral Tablet vitamin B-12 (CYANOCOB ALAMIN) 100 MCG tablet vitamin B-12 (CYANOCOBALAMIN) 100 MCG tablet 50 ug Oral aborted Take 50 mcg by mouth daily [facility] Ibuprofen 600 MG Oral Tablet ibuprofen (ADVIL,MOTRIN) 600 MG tablet ibuprofen (ADVIL,MOTRIN) 600 MG tablet 600 mg Oral aborted Take 600 mg by mouth Three times daily as needed for Pain [facility] POLYETHYLENE GLYCOL 3350 142 MG/ML Oral Solution polyethylene glycol (MIRALAX) packet polyethylene glycol (MIRALAX) packet 17 g Oral aborted Take 17 g by mouth Two Times Daily [facility] Albuterol 0.83 MG/ML Inhalant Solution a lbuterol (PROVENTIL) (2.5 MG/3ML) 0.083% nebulizer solution albuterol (PROVENTIL) (2.5 MG/3ML) 0.083 % nebulizer solution 2.5 mg Nebulization aborted Jewel e 2.5 mg by nebulization every 6 (six) hours as needed for Wheezing. [facility] Sumatriptan 100 MG Oral Tablet sumatriptan (IMITREX) 1 00 MG tablet sumatriptan (IMITREX) 100 MG tablet 100 mg Oral aborted Take 100 mg by mouth as needed for Migraine. [facility] Vitamin B 12 0.1 MG Oral Tablet Vitamin B-12 100 MCG Oral Tablet (CYANOCOBALAMIN) Vitamin B-12 100 MCG Oral Tablet (CYANOCOBALAMIN) 50 ug Oral aborted Take 50 mcg by mouth daily [facility] Methocarbamol 750 MG Oral Tablet Methocarbamol 750 MG Oral Tablet (ROBAXIN) Methocarbamol 750 MG Oral Tablet (ROBAXIN) 750 mg Oral aborted Take 750 mg by mouth Two times daily as needed [facility] Docusate Sodium 100 MG Oral Capsule Docu sate Sodium 100 MG Oral Capsule (COLACE) Docusate Sodium 100 MG Oral Capsule (COLACE) 100 mg Oral aborted Take 100 mg by mouth daily [facility] 14 ACTUAT fluticasone furoate 0.1 MG/ACT UAT / vilanterol 0.025 MG/ACTUAT Dry Powder Inhaler Fluticasone Furoate-Vilanterol (BREO ELLIPTA) 100-25 MCG/INH AEPB Fluticasone Furoate-Vilanterol (BREO ELLIPTA) 100-25 MCG/INH AEPB 1 {puff} Inhalation aborted Inhale 1 puff into the lungs daily. [facility] gabapentin 100 MG Oral Capsule Gabapentin 100 MG Oral Capsule (NEURONTIN) Gabapentin 100 MG Oral Capsule (NEURONTIN) 100 mg Oral aborted Take 100 mg by mouth nightly [facility] Gemfibrozil 600 MG Oral Tablet Gemfibrozil 600 MG Oral Tablet (LOPID) Gemfibrozil 600 MG Oral Tablet (LOPID) 600 mg Oral aborted Take 600 mg by mouth [facility] Hydrochlorothiazide 25 MG / Lisinopril 2 0 MG Oral Tablet Lisinopril- hydroCHLOROthiazide 20-25 MG Oral Tablet (ZESTORETIC) Lisinopril- hydroCHLOROthiazide 20-25 MG Oral Tablet (ZESTORETIC) 1 {tbl } Oral aborted Take [address] [facility] Ondansetron 4 MG Oral Tablet Ondansetron HCl 4 MG Oral Tablet (Zofran) Ondansetron HCl 4 MG Oral Tablet (Zofran) 4 mg Oral aborted Take 4 mg by mouth every 8 (eight) hours as needed [facility] formoterol fumarate 0.01 MG/ML Inhalant Solution Formoterol Fumarate 20 MCG/2ML Inhalation Nebulization Solution (PERFOROMIST) Formoterol Fumarate 20 MCG/2ML Inhalation Nebulization Solution (PERFOROMIST) 20 ug aborted 20 mcg [facility] Albuterol Sulfate HFA 108 (90 Base) MCG/ ACT Inhalation Aerosol Solution (PROVENTIL HFA;VENTOLIN HFA) 0311-1475-56 2 {puff} Inhalation aborted Inhale 2 puffs into the lungs every 4 (four) hours as needed [facility] Insurance Providers Payer name Policy type / Coverage type Policy ID Covered democrat ID Covered democrat's relationship to de la rosa Policy [place] Plan Information [facility] [id number] Patient [id number] [facility] PLUS [facility] COMMUNITY PLAN [id number] SELF [id number] [place] Medigap Part B [id number] Family Dependent [id number] SELF PAY UNAVAILABLE SELF UNAVAILA BLE BLUE CHOICE OPTIONS 7 [id number] MEDICAID M [id number] Self [id number] [facility] I [id number] Self [id number] MEDICAID [id number] Sepideh [id number] [facility] COMMUNITY PLAN MCDO [id number] SP [id number] [facility] Community Plan Commercial [id number] Self [id number] [facility] MEDICAID [id number] Sepideh [id number] [facility] MEDICAID [id number] xxxxxxxxx [id number] [employer] COMMUNITY PLAN MCDHMO [id number] SP [id number] INSURANCE COVID-19 [id number] [id number] INSURANCE COVID-19 COVID Sepideh C OVID [facility] MEDICAID [id number] S [id number] [employer] COMMUNITY PLAN MCDHMO [id number] SP [id number] [facility] Commercial Insurance Co. [id number] Self [id number] Medicaid [place] Medigap Part B [id number] Self [id number] Hmo Blue Option/Medicaid Health Maintenance Organization (HMO) V [id number] Self V [id number] [facility] Health Maintenance Organization (HMO) [id number] Self 1 [id number] [place] Medigap Part B [id number] Self [id number] Hmo Blue Option/Medicaid Health Maintenance Organization (HMO) V [id number] Self V [id number] Medicaid Medicaid [id number] Self [id number] [facility] Plan Commercial [id number] Self [id number] [facility] Other 0 [id number] Self 0 Medicaid [place] Medigap Part B [id number] Self [id number] [employer] Option/Medicaid Health Maintenance Organization (HMO) V [id number] Self V [id number] [facility] Health Maintenance Organization (HMO) [id number] Self 1 [id number] Community Plan - [facility] Commercial [id number] Self [id number] Community Plan - [facility] Commercial [id number] Self [id number] [employer] Other 0 [id number] Self 0 Medicaid [id number] Community Plan - [facility] [place] Security [id number] Self [id number] [facility] [id number] Community Plan - [facility] [place] Security [id number] Self [facility] Medigap Part B [id number] Self Medicaid [place] Medigap Part B [id number] Self Hmo Blue Option/Medicaid Health Maintenance Organization (HMO) [id number] Self [facility] [id number] [employer] [facility] [id number] SELF [id number] [facility] [id number] Patient [id number] Medicaid Medicaid [id number] Self [facility] Plan Commercial [id number] Self UNITED HEALTHCARE(MCAID) P [id number] S [id number] UNITED HEALTHCARE(MCAID) P [id number] S [id number] [facility] MEDICAID 7 [id number] SELFPAY 5 UNAVAILABLE 1 UNAVAILA BLE MEDICAID 3 [id number] MEDICAID W [id number] S [id number] BLUE CHOICE OPTION O [id number] S [id number] BLUE CROSS [place] PLAN [id number] SP [id number] BLUE CROSS [place]ERMAN PLAN [id number] SP [id number] MEDICAID [id number] SP [id number] HMO BLUE [id number] UNHC COMMUNITY PLAN MCDO [id number] SP [id number] O UNAVAILABLE UNAVAILA BLE UNHC COMMUNITY PLAN MCDHMO [id number] SP [id number] "" OTH None [facility](MCAID) P [id number] S [id number] [facility] COMMUNTY PLAN [id number] UNHC COMMUNITY PLAN XIX [id number] 18 [id number] UNHC COMMUNITY PLAN MCDO [id number] SP [id number] BLUE CROSS BLUE SHIELD-O/P [id number] UNHC COMMUNITY PLAN XIX -RECURRING [id number] 18 [id number] [facility] Community Plan [id number] STPP Wrap [id number] [employer] Other 0 [id number] Self 0 [employer] Other 0 [id number] Self 0 [employer] Other 0 [id number] Self 0 [facility] MEDICAID PI PI United[employer] Other 0 [id number] Self 0 [employer] Other 0 [id number] Self 0 [employer] Other 0 [id number] Self 0 Problems, Conditions, and Diagnoses Code Display Name Description Problem Type Effective Dates Data Source(s) S92.101S Unspecified fracture of right talus, seq uela Unspecified fracture of right talus, sequela Diagnosis 05/04/2021 11:06:52 AM EDT [facility] R56.9 Unspecified convulsions Unspecified convulsions Diagno sis 03/07/2021 07:05:44 AM EDT [facility] R26.2 Difficulty in walking, not elsewhere cla ssified DIFFICULTY IN WALKING, NOT ELSEWHERE CLASSIFIED Diagnosis 02/07/2021 12:00:00 AM EDT [facility] ([facility]) M62.81 Muscle weakness (generalized) MUSCLE WEAKNESS (GENERAL IZED) Diagnosis 02/07/2021 12:00:00 AM EDT [facility] ([facility]) M25.571 Pain in right ankle and joints of right foot PAIN IN RIGHT ANKLE AND JOINTS OF RIGHT FOOT Diagnosis 02/06/2021 12:00:00 AM EDT [facility] ([facility]) K21.9 Gastro-esophageal reflux disease without esophagitis GASTRO-ESOPHAGEAL REFLUX DISEASE WITHOUT ESOPHAGITIS Diagnosis 02/06/2021 12:00:00 AM ED T [facility] ([facility]) I10 Essential (primary) hypertension ESSENTIAL (PRIMARY) H YPERTENSION Diagnosis 02/06/2021 12:00:00 AM EDT [facility] ([facility]) N35.919 UNSPECIFIED URETHRAL STRICTURE, MALE, UN SPECIFIED SITE UNSPECIFIED URETHRAL STRICTURE, MALE, UNSPECIFIED SITE Diagnosis 02/06/2021 12:00: 00 AM EDT [facility] ([facility]) F32.9 Major depressive disorder, single episod e, unspecified MAJOR DEPRESSIVE DISORDER, SINGLE EPISODE, UNSPECIFIED Diagnosis 02/06/2021 12:00:00 AM EDT [facility] ([facility]) G40.909 Epilepsy, unspecified, not intractable, without status epilepticus EPILEPSY, UNSPECIFIED, NOT INTRACTABLE, WITHOUT STATUS EPILEPTICUS Diagnosis 02/06/2021 12:00:00 AM EDT [facility] ([facility]) Z68.43 Body mass index (BMI) 50-59.9 , adult RAHEL DY MASS INDEX [BMI] 50.0-59.9, ADULT Diagnosis 02/06/2021 12:00:00 AM EDT [facility] ([facility] E66.01 Morbid (severe) obesity due to excess ca lories MORBID (SEVERE) OBESITY DUE TO EXCESS CALORIES Diagnosis 02/06/2021 12:00:00 AM EDT [facility] ([facility]) G47.33 Obstructive sleep apnea (adult) (pediatr ic) OBSTRUCTIVE SLEEP APNEA (ADULT) (PEDIATRIC) Diagnosis 02/06/2021 12:00:00 AM EDT [facility] ([facility]) J45.909 Unspecified asthma, uncomplicated UNSPECIFIED THMA, UNCOMPLICATED Diagnosis 02/06/2021 12:00:00 AM EDT [facility] ([facility]) M19.071 Primary osteoarthritis, right ankle and foot PRIMARY OSTEOARTHRITIS, RIGHT ANKLE AND FOOT Diagnosis 02/06/2021 12:00:00 AM EDT [facility] ([facility]) Z20.822 CONTACT WITH AND (SUSPECTED) EXPOSURE TO COVID-19 CONTACT WITH AND (SUSPECTED) EXPOSURE TO COVID-19 Diagnosis 02/06/2021 12:00:00 AM EDT [facility] ([facility]) Z47.89 Encounter for other orthopedic aftercare ENCOUNTER FOR OTHER ORTHOPEDIC AFTERCARE Diagnosis 02/06/2021 12:00:00 AM EDT [facility] ([facility]) M19.071 Primary osteoarthritis, right ankle and foot Primary osteoarthritis, right ankle and foot Diagnosis 01/30/2021 05:03:27 PM [facility] Closed displaced fracture of right talus with malunion, unspecified fracture morphology, subsequent encounter [S92.101P] Closed displaced fracture of right talus with malunion, unspecified fracture morphology, subsequent encounter [S92.101P] Diagnosis 01/30/2021 09:09:00 AM [facility] Arthritis of right subtalar joint [M19.0 71] Arthritis of right subtalar joint [M19.071] Diagnosis 01/30/2021 09:09:00 AM [facility] 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 Diagnosis 10/24/2020 06:01:00 PM [facility] Z79.899 Other alf (current) drug therapy O THER HALF-WAY (CURRENT) DRUG THERAPY Diagnosis 10/24/2020 06:01:00 PM [facility] 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 ANALGESIC Diagnosis 10/24/2020 06:01:00 PM [facility] l Z79.2 terminal makeup operator (current) use of antibiotics L DEANN TERM (CURRENT) USE OF ANTIBIOTICS Diagnosis 10/24/2020 06:01:00 PM [facility] l J45.909 Unspecified asthma, uncomplicated UNSPECIFIED THMA, UNCOMPLICATED Diagnosis 10/24/2020 06:01:00 PM [facility] K43.9 Ventral hernia without obstruction or ga ngrene VENTRAL HERNIA WITHOUT OBSTRUCTION OR GANGRENE Diagnosis 10/24/2020 06:01:00 PM EDT [facility] R10.11 Right upper quadrant pain RIGHT UPPER QUADRANT PAIN Di agnosis 10/24/2020 06:01:00 PM EDT [facility] [id number] Encounter for other preprocedural examin ation Encounter for other preprocedural examination Diagnosis 04/20/2020 02:36:00 PM EDT [facility] H6123 Impacted cerumen, bilateral Impacted cerumen, bilatera l Diagnosis 04/05/2020 10:11:00 AM EDT [facility] R1033 Periumbilical pain Periumbilical pain Diagnosis 08/2019 01:51:00 PM EDT [facility] H6122 Impacted cerumen, left ear Impacted cerumen, left ear Diagnosis 03/27[facility]2020 [facility] Body mass index (BMI) 50.0-59.9, adult B santos mass index (BMI) 50.0-59.9, adult Diagnosis 03/27/2020 12:49:00 PM EDT [facility] E669 Obesity, unspecified Obesity, unspecified Diagnosis 03/27/2020 [facility] R569 Unspecified convulsions Unspecified convulsions Diagno sis 03/27/2020 [facility] B372 Candidiasis of skin and nail Candidiasis of skin and n ail Diagnosis 03/27/2020 [facility] R1030 Lower abdominal pain, unspecified Lower abdomina l pain, unspecified Diagnosis 03/27/2020 12:49:00 PM EDT [facility] [id number] Unspecified asthma, uncomplicated Unspecified as thma, uncomplicated Diagnosis 03/22/2020 [facility] G8929 Other chronic pain Other chronic pain Diagnosis [facility] V28682 Personal history of nicotine dependence Personal history of nicotine dependence Diagnosis 03/09/2020 05:46:00 PM EDT [facility] K2970 Gastritis, unspecified, without bleeding Gastritis, unspecified, without bleeding Diagnosis 03/09/2020 05:46:00 PM EDT [facility] R109 Unspecified abdominal pain Unspecified abdominal pain Diagnosis 03/09/2020 05:46:00 PM EDT [facility] Z47.89 Encounter for other orthopedic aftercare Encounter for other orthopedic aftercare Problem 04/12/2021 01:00:00 AM EDT [facility] ([facility]) R07.9 Chest pain Chest pain Problem 10/30/2020 12:00:00 AM ED T [facility] ([facility]) R06.02 Dyspnea Dyspnea Problem 10/30/2020 12:00:00 AM ED T [facility] ([facility]) E66.01 Morbid obesity Morbid obesity Problem 10/30/2020 12:00: 00 AM EDT [facility] ([facility]) Z71.3 Dietary management surveillance Dietary management colton veillance Problem 10/30/2020 12:00:00 AM EDT [facility] ([facility]) I10 Essential hypertension Essential hypertension Problem 10/30/2020 12:00:00 AM EDT [facility] ([facility]) E78.1 Pure hyperglyceridemia Pure hyperglyceridemia Problem 10/30/2020 12:00:00 AM EDT [facility] ([facility]) Z01.810 Preoperative cardiovascular examination Preoperative cardiovascular examination Problem 10/30/2020 12:00:00 AM EDT [facility] ([facility] R07.1 Breathing painful Breathing painful Problem 10/30/2020 12:00:00 AM EDT [facility] ([facility]) E78.49 [id number] Hyperlipidemia due to dietary fat intake Problem 10/27/2020 12:00:00 AM EDT eCW1 ([facility]) K59.00 Constipation Constipation, unspecified constipation ty pe Problem 09/23/2020 12:00:00 AM EST eCW1 ([facility]) M17.0 [id number] Primary osteoarthritis of both knees Prob jah 09/23/2020 12:00:00 AM EST eCW1 ([facility]) [id number] Essential hypertension Essential hypertension Problem 08/23/2020 12:00:00 AM EST [facility] ([facility] ) G47.33 [id number] Obstructive sleep apnea Problem 08/03/2020 1 2:00:00 AM EST eCW1 ([facility]) G40.909 [id number] Seizure disorder Problem 08/03/2020 12:00:00 AM EST eCW1 ([facility]) J45.20 [id number] Mild intermittent asthma without complica tion Problem 08/03/2020 12:00:00 AM EST eCW1 ([facility]) Z68.43 [id number] BMI 50.0-59.9, adult Problem 08/03/2020 12:0 0:00 AM EST eCW1 ([facility]) Surgeries/Procedures Procedure Description Date Indications Data Source(s) EEG SLEEP DEPRIVED <td>EEG SLEEP DEPRIVED</td>< td>Routine</td><td>03/07/2021 7:30 AM EDT</td><td> Seizure</td><td> </td> 03/07/2021 07:30:00 AM EDT [facility] Seizure DRUG SCREEN QUALITATIVE TOPIRAMATE <td>TOPIRAMATE LEVEL</td><td>Routine</td><td>02/20/2021 10:19 AM EDT</td><td> Partial symptomatic epilepsy with complex partial seizures, not intractable, without status epilepticus</td><td> </td> 02/20/2021 10:19:00 AM EDT Partial symptomatic epilepsy with comple x partial seizures, not intractable, without status epilepticus [facility] Partial symptomatic epilepsy with comple x partial seizures, not intractable, without status epilepticus LEVETIRACETAM LEVEL <td>LEVETIRACETAM LEVEL</td> <td>Routine</td><td>02/20/2021 10:19 AM EDT</td><td> Partial symptomatic epilepsy with complex partial seizures, not intractable, without status epilepticus</td><td> </td> 02/20/2021 10:19:00 AM EDT Partial symptomatic epilepsy with comple x partial seizures, not intractable, without status epilepticus [facility] Partial symptomatic epilepsy with comple x partial seizures, not intractable, without status epilepticus BLOOD COUNT COMPLETE AUTO&AUTO DIFRNTL WBC COUNT <td>C BC AND DIFFERENTIAL</td><td>Routine</td><td>02/20/2021 10:19 AM EDT</td><td> Seizure</td><td> </td> 02/20/2021 10:19:00 AM EDT [facility] Seizure COMPREHENSIVE METABOLIC PANEL <td>COMPREHENSIVE METABO LIC PANEL</td><td>Routine</td><td>02/20/2021 10:19 AM EDT</td><td> Seizure</td><td> </td> 02/20/2021 10:19:00 AM EDT [facility] Seizure RESPIRATORY PATHOGEN PANEL <td>RESPIRATORY PATHOGEN PANEL</td><td>Routine</td><td>02/05/2021 9:40 PM EDT</td><td></td><td> </td> 02/05/2021 09:40:00 PM [facility] COVID-19 PCR <td>COVID-19 PCR</td><td>Rou kerri</td><td>02/05/2021 9:40 PM EDT</td><td></td><td> </td> 02/05/2021 09:40:00 PM [facility] BLOOD COUNT COMPLETE AUTOMATED <td>CBC</td><td>Routine </td><td>02/05/2021 5:27 AM EDT</td><td></td><td> </td> 02/05/2021 05:27:00 AM [facility] BASIC METABOLIC PANEL CALCIUM TOTAL <td>BASIC METABOLI C PANEL</td><td>Routine</td><td>02/05/2021 5:27 AM EDT</td><td></td><td> </td> 02/05/2021 05:27:00 AM [facility] RESPIRATORY PATHOGEN PANEL <td>RESPIRATORY PATHOGEN PANEL</td><td>Routine</td><td>01/30/2021 9:11 PM EDT</td><td></td><td> </td> 01/30/2021 09:11:00 PM [facility] COVID-19 PCR <td>COVID-19 PCR</td><td>Rou kerri</td><td>01/30/2021 9:11 PM EDT</td><td></td><td> </td> 01/30/2021 09:11:00 PM [facility] ARTHRODESIS SUBTALAR <td>ARTHRODESIS SUBTALAR</td ><td></td><td>01/30/2021 1:32 PM EDT</td><td> Arthritis of right subtalar joint Closed displaced fracture of right talus with malunion, unspecified fracture morphology, subsequent encounter</td><td></td> 01/30/2021 01:32:00 PM EDT - 01/30/2021 04:32:00 PM EDT Closed displaced fracture of right talus with malunion, unspecified fracture morphology, subsequent encounterArthritis of right subtalar joint [facility] Closed displaced fracture of right talus with malunion, unspecified fracture morphology, subsequent encounter Arthritis of right subtalar joint US GUIDED PERIPHERAL NERVE BLOCK (OR ONLY) <td>US GUID ED PERIPHERAL NERVE BLOCK (OR ONLY)</td><td>Routine</td><td>01/30/2021 11:55 AM EDT</td><td></td><td></td> [facility]/30[facility] W/WOM-MODE COMPL SPEC&COLR DOP 12/19 12:00:00 AM EDT [facility] ([facility]) OFFICE OUTPATIENT VISIT 25 MINUTES 12/12/2020 12:00:00 AM EDT [facility] ([facility], ) Laparoscopic Incisional Hernia W/ Mesh, Reducible 11/07/2020 12:00:00 AM EDT [facility] ([facility], ) ECG ROUTINE ECG W/LEAST 12 LDS W/I&R 10/30/2020 12:00: 00 AM EDT [facility] ([facility]) OFFICE OUTPATIENT VISIT 25 MINUTES 09/13/2020 12:00:00 AM EST [facility] ([facility], ) Measure Blood Oxygen Level Continuous Overnight Monitor 09/12/2020 12:00:00 AM EST [facility] ([facility], ) OFFICE OUTPATIENT VISIT 25 MINUTES 08/23/2020 12:00:00 AM EST [facility] ([facility]) OFFICE OUTPATIENT NEW 45 MINUTES 08/17/2020 12:00:00 A M EST [facility] ([facility], ) SURGERY CASE REQUEST OUTSIDE FACILITY ONLY <td>SURGERY CASE REQUEST OUTSIDE FACILITY ONLY</td><td>Routine</td><td>06/28/2020 1:27 PM EST</td><td> Arthritis of right subtalar joint Closed displaced fracture of right talus, unspecified fracture morphology, sequela</td><td></td> 06/28/2020 01:27:23 PM EST Closed displaced fracture o f right talus, unspecified fracture morphology, sequelaArthritis of right subtalar joint [facility] Closed displaced fracture of right talus , unspecified fracture morphology, sequela Arthritis of right subtalar joint Results ID Date Data Source [id number] 05/04/2021 05:20:29 PM EDT [facility] XR ANKLE 3 OR MORE VIEWS [id number] RESU LTInterpreted by:FALLON Lawson ANKLE CLINICAL STATEMENT: Pain. Initial encounter.TECHNIQUE: 3 views of the right ankle. COMPARISON: 03/23/2021FINDINGS: The patient is again noted to be status post subtalar joint arthrodesis.No acute fracture or dislocation is identified.Otherwise, the joint spaces are preserved and the articular margins are smooth.The visualized soft tissues are within normal limits.IMPRESSION: Since 03/23/2021,No significant interval change.Status post subtalar joint arthrodesis, with stable postoperative changes.This document has been electronically signed by Alvino Mccarty MD on 05/04/2021 5:18 PM Name Value Range Interpretation Code Description Data Giovana rce(s) Supporting Document(s) ID Date Data Source [id number] 04/27/2021 08:47:00 PM EDT [facility] Name Value Range Interpretation Code Description Data Giovana rce(s) Supporting Document(s) SARS coronavirus 2 RNA [Presence] in Res piratory specimen by ADONAY with probe detection NEGATIVE [facility] This lab was ordered by [facility] a nd reported by [facility]. ID Date Data Source [id number] 04/21/2021 04:03:00 PM EDT [facility] Name Value Range Interpretation Code Description Data Giovana rce(s) Supporting Document(s) SARS-CoV-2 (COVID 19) NEGATIVE - SARS-CoV-2 (COVID19) [facility] This lab was ordered by [facility] a nd reported by [facility]. ID Date Data Source [id number] 04/16/2021 11:10:08 AM EDT [facility] Name Value Range Interpretation Code Description Data Giovana rce(s) Supporting Document(s) WBC 9.4 10*3/uL (4.1-11.0) [facility] RBC 5.18 10*6/uL (4.60-6.10) [facility] HGB 14.7 g/dL (13.5-18.0) [facility] HCT 44.5 % (41.0-53.0) [facility] MCV 85.9 fL (80.0-95.0) [facility] MCH 28.4 pg (27.0-32.0) [facility] MCHC 33.1 g/dL (32.0-36.0) [facility] RDW 15.5 % (10.5-14.5) H [facility] PLT 205 10*3/uL (150-450) [facility] MPV 7.6 fL (7.1-10.7) [facility] NEUT % 70.5 % (35.0-75.0) [facility] LYMPH % 18.5 % (16.0-52.0) [facility] MONO % 7.0 % (0.0-8.0) [facility] EOS % 3.7 % (0.0-5.0) [facility] BASO % 0.3 % (0.0-4.0) [facility] NEUT # 6.6 10*3/uL (1.8-7.7) [facility] LYMPH # 1.7 10*3/uL (1.2-4.8) [facility] MONO # 0.7 10*3/uL (0.0-0.8) [facility] Eosinophils [#/volume] in Blood by Automated count 0.3 10*3/uL (0.0-0 .5) [facility] BASO # 0.0 10*3/uL (0.0-0.2) [facility] ID Date Data Source [id number] 04/16/2021 12:05:00 PM EDT [facility] Name Value Range Interpretation Code Description Data Giovana rce(s) Supporting Document(s) SODIUM 140 mmol/L (136-145) [facility] POTASSIUM 3.9 mmol/L (3.6-5.2) [facility] CHLORIDE 107 mmol/L (100-108) [facility] CO2 27 mmol/L (22-31) [facility] ANION GAP 6 mmol/L (7-16) L [facility] UREA NITROGEN 9 mg/dL (7-24) [facility] CREATININE 0.81 mg/dL (0.80-1.30) [facility] BUN/CREAT RATIO 11.1 RATIO (10.0-20.0) [facility] [place] [facility] GLUCOSE 79 mg/dL (70-99) [facility] [place] [facility] CALCIUM 8.6 mg/dL (8.4-10.2) [facility] [place] GFR >60 ml/min/1.73m2 (>59) [facility] GFR ( AMER) >60 ml/min/1.73m2 (>59) [facility] [place] [facility] GFR INTERPRETATION [facility] [place] CORE --NORMAL KIDNEY FUNCTION OR MILD DISEASE - GFR >OR= 60CHRONIC KIDNEY DISEASE - GFR 15 - 59RENAL FAILURE - GFR <15 Est. GFR calculation based on the MDRDstudy equation, which assumes a steadystate for creatinine. Est. GFR should notbe used for medication dosing. ID Date Data Source [id number] 04/12/2021 12:39:15 PM EDT [facility] Name Value Range Interpretation Code Description Data Giovana rce(s) Supporting Document(s) WBC 8.6 10*3/uL (4.1-11.0) [facility] RBC 5.27 10*6/uL (4.60-6.10) [facility] HGB 14.9 g/dL (13.5-18.0) [facility] HCT 45.2 % (41.0-53.0) [facility] MCV 85.8 fL (80.0-95.0) [facility] MCH 28.3 pg (27.0-32.0) [facility] MCHC 33.0 g/dL (32.0-36.0) [facility] RDW 15.3 % (10.5-14.5) H [facility] PLT 201 10*3/uL (150-450) [facility] MPV 7.8 fL (7.1-10.7) [facility] NEUT % 75.4 % (35.0-75.0) H [facility] LYMPH % 17.4 % (16.0-52.0) [facility] MONO % 3.9 % (0.0-8.0) [facility] EOS % 3.1 % (0.0-5.0) [facility] BASO % 0.2 % (0.0-4.0) [facility] NEUT # 6.5 10*3/uL (1.8-7.7) [facility] LYMPH # 1.5 10*3/uL (1.2-4.8) [facility] MONO # 0.3 10*3/uL (0.0-0.8) [facility] Eosinophils [#/volume] in Blood by Automated count 0.3 10*3/uL (0.0-0 .5) [facility] BASO # 0.0 10*3/uL (0.0-0.2) [facility] ID Date Data Source [id number] 04/12/2021 01:25:33 PM EDT [facility] Name Value Range Interpretation Code Description Data Giovana rce(s) Supporting Document(s) SODIUM 141 mmol/L (136-145) [facility] POTASSIUM 3.9 mmol/L (3.6-5.2) [facility] CHLORIDE 108 mmol/L (100-108) [facility] CO2 25 mmol/L (22-31) [facility] ANION GAP 8 mmol/L (7-16) [facility] UREA NITROGEN 14 mg/dL (7-24) [facility] CREATININE 0.85 mg/dL (0.80-1.30) [facility] BUN/CREAT RATIO 16.5 RATIO (10.0-20.0) [facility] GLUCOSE 99 mg/dL (70-99) [facility] CALCIUM 8.7 mg/dL (8.4-10.2) [facility] GFR >60 ml/min/1.73m2 (>59) [facility] GFR ( AMER) >60 ml/min/1.73m2 (>59) [facility] GFR INTERPRETATION [facility] --NORMAL KIDNEY FUNCTION OR MILD DISEASE - GFR >OR= 60CHRONIC KIDNEY DISEASE - GFR 15 - 59RENAL FAILURE - GFR <15 Est. GFR calculation based on the MDRDstudy equation, which assumes a steadystate for creatinine. Est. GFR should notbe used for medication dosing. ID Date Data Source [id number] 04/11/2021 12:00:00 AM EDT [facility] Name Value Range Interpretation Code Description Data Giovana rce(s) Supporting Document(s) SARS coronavirus 2 Ag Negative [facility] This lab was ordered by [facility] and [facility] and reported by [facility]. ID Date Data Source [id number] 04/09/2021 11:49:40 AM EDT [facility] Name Value Range Interpretation Code Description Data Giovana rce(s) Supporting Document(s) WBC 10.1 10*3/uL (4.1-11.0) [facility] RBC 5.26 10*6/uL (4.60-6.10) [facility] HGB 15.0 g/dL (13.5-18.0) [facility] HCT 45.5 % (41.0-53.0) [facility] MCV 86.6 fL (80.0-95.0) [facility] MCH 28.6 pg (27.0-32.0) [facility] MCHC 33.1 g/dL (32.0-36.0) [facility] RDW 15.4 % (10.5-14.5) H [facility] PLT 220 10*3/uL (150-450) [facility] MPV 7.8 fL (7.1-10.7) [facility] [place] [facility] - [facility] NEUT % 72.3 % (35.0-75.0) [facility] LYMPH % 17.7 % (16.0-52.0) [facility] - [facility] MONO % 6.3 % (0.0-8.0) [facility] [place] [facility] - [facility] EOS % 3.4 % (0.0-5.0) [facility] [place] [facility] - C[facility] BASO % 0.3 % (0.0-4.0) [facility] [place] [facility] - [facility] NEUT # 7.3 10*3/uL (1.8-7.7) [facility] - [facility] LYMPH # 1.8 10*3/uL (1.2-4.8) [facility] - [facility] MONO # 0.6 10*3/uL (0.0-0.8) [facility] Eosinophils [#/volume] in Blood by Automated count 0.3 10*3/uL (0.0-0 .5) [facility] [place] [facility] - [facility] BASO # 0.0 10*3/uL (0.0-0.2) [facility] ID Date Data Source [id number] 04/09/2021 12:09:03 PM EDT [facility] Name Value Range Interpretation Code Description Data Giovana rce(s) Supporting Document(s) SODIUM 140 mmol/L (136-145) [facility] [place] [facility] - [facility] POTASSIUM 3.9 mmol/L (3.6-5.2) [facility] [place] [facility] - CORE CHLORIDE 109 mmol/L (100-108) H [facility] [place] [facility] - CORE CO2 24 mmol/L (22-31) [facility] [place] [facility] - CORE ANION GAP 7 mmol/L (7-16) [facility] [place] [facility] - CORE UREA NITROGEN 10 mg/dL (7-24) [facility] - CORE CREATININE 0.83 mg/dL (0.80-1.30) [facility] - CORE BUN/CREAT RATIO 12.0 RATIO (10.0-20.0) [facility] [place] [facility] - CORE GLUCOSE 88 mg/dL (70-99) [facility] [place] [facility] - CORE CALCIUM 8.5 mg/dL (8.4-10.2) [facility] [place] [facility] [employer] CORE GFR >60 ml/min/1.73m2 (>59) [facility] GFR ( AMER) >60 ml/min/1.73m2 (>59) [facility] [place] [facility] GFR INTERPRETATION [facility] [place] [facility] --NORMAL KIDNEY FUNCTION OR MILD DISEASE - GFR >OR= 60CHRONIC KIDNEY DISEASE - GFR 15 - 59RENAL FAILURE - GFR <15 Est. GFR calculation based on the MDRDstudy equation, which assumes a steadystate for creatinine. Est. GFR should notbe used for medication dosing. ID Date Data Source [id number] 04/05/2021 12:13:42 PM EDT [facility] Name Value Range Interpretation Code Description Data Giovana rce(s) Supporting Document(s) WBC 9.7 10*3/uL (4.1-11.0) [facility] RBC 5.29 10*6/uL (4.60-6.10) [facility] - [facility] HGB 15.0 g/dL (13.5-18.0) [facility] - [facility] HCT 45.1 % (41.0-53.0) [facility] - [facility] MCV 85.3 fL (80.0-95.0) [facility] - [facility] MCH 28.4 pg (27.0-32.0) [facility] - [facility] MCHC 33.3 g/dL (32.0-36.0) [facility] RDW 15.5 % (10.5-14.5) H [facility] - [facility] PLT 201 10*3/uL (150-450) [facility] - [facility] MPV 7.9 fL (7.1-10.7) [facility] [place] [facility] - CORE NEUT % 70.6 % (35.0-75.0) [facility] - [facility] LYMPH % 19.7 % (16.0-52.0) [facility] - [facility] MONO % 6.4 % (0.0-8.0) [facility] [place] [facility] - [facility] EOS % 3.1 % (0.0-5.0) [facility] [place] [facility] - C[facility] BASO % 0.2 % (0.0-4.0) [facility] [place] [facility] - [facility] NEUT # 6.8 10*3/uL (1.8-7.7) [facility] - [facility] LYMPH # 1.9 10*3/uL (1.2-4.8) [facility] - [facility] MONO # 0.6 10*3/uL (0.0-0.8) [facility] Eosinophils [#/volume] in Blood by Automated count 0.3 10*3/uL (0.0-0 .5) [facility] [place] [facility] - [facility] BASO # 0.0 10*3/uL (0.0-0.2) [facility] ID Date Data Source [id number] 04/05/2021 12:37:40 PM EDT [facility] Name Value Range Interpretation Code Description Data Giovana rce(s) Supporting Document(s) SODIUM 142 mmol/L (136-145) [facility] [place] [facility] [employer] - CORE POTASSIUM 3.9 mmol/L (3.6-5.2) [facility] [place] [facility] CHLORIDE 107 mmol/L (100-108) [facility] [place] [facility] CO2 23 mmol/L (22-31) [facility] [place] [facility] [employer] - CORE ANION GAP 12 mmol/L (7-16) [facility] [place] [facility] [employer] - CORE UREA NITROGEN 10 mg/dL (7-24) [facility] - CORE CREATININE 0.81 mg/dL (0.80-1.30) [facility] - [facility] BUN/CREAT RATIO 12.3 RATIO (10.0-20.0) [facility] [place] [facility] - CORE GLUCOSE 74 mg/dL (70-99) [facility] [place] [facility] [employer] - CORE CALCIUM 8.3 mg/dL (8.4-10.2) L [facility] [place] [facility] [employer] - CORE GFR >60 ml/min/1.73m2 (>59) [facility] - CORE GFR ( AMER) >60 ml/min/1.73m2 (>59) [facility] [place] [facility] [employer] CORE GFR INTERPRETATION [facility] [place] [facility] [employer] CORE --NORMAL KIDNEY FUNCTION OR MILD DISEASE - GFR >OR= 60CHRONIC KIDNEY DISEASE - GFR 15 - 59RENAL FAILURE - GFR <15 Est. GFR calculation based on the MDRDstudy equation, which assumes a steadystate for creatinine. Est. GFR should notbe used for medication dosing. ID Date Data Source [id number] 04/03/2021 10:32:29 AM EDT [facility] Name Value Range Interpretation Code Description Data Giovana rce(s) Supporting Document(s) WBC 10.4 10*3/uL (4.1-11.0) [facility] RBC 5.47 10*6/uL (4.60-6.10) [facility] HGB 15.6 g/dL (13.5-18.0) [facility] HCT 46.7 % (41.0-53.0) [facility] MCV 85.5 fL (80.0-95.0) [facility] MCH 28.5 pg (27.0-32.0) [facility] - [facility] MCHC 33.4 g/dL (32.0-36.0) [facility] RDW 15.4 % (10.5-14.5) H [facility] - [facility] PLT 184 10*3/uL (150-450) [facility] - [facility] MPV 7.7 fL (7.1-10.7) [facility] [place] [facility] - CORE NEUT % 75.4 % (35.0-75.0) H [facility] - [facility] LYMPH % 14.8 % (16.0-52.0) L [facility] - C[facility] MONO % 6.6 % (0.0-8.0) [facility] [place] [facility] - [facility] EOS % 3.0 % (0.0-5.0) [facility] [place] [facility] - C[facility] BASO % 0.2 % (0.0-4.0) [facility] [place] [facility] - CORE NEUT # 7.9 10*3/uL (1.8-7.7) H [facility] - [facility] LYMPH # 1.5 10*3/uL (1.2-4.8) [facility] - [facility] MONO # 0.7 10*3/uL (0.0-0.8) [facility] Eosinophils [#/volume] in Blood by Automated count 0.3 10*3/uL (0.0-0 .5) [facility] [place] [facility] - CORE BASO # 0.0 10*3/uL (0.0-0.2) [facility] - [facility] ID Date Data Source [id number] 04/03/2021 11:42:45 AM EDT [facility] Name Value Range Interpretation Code Description Data Giovana rce(s) Supporting Document(s) SODIUM 142 mmol/L (136-145) [facility] [place] [facility] POTASSIUM 4.2 mmol/L (3.6-5.2) [facility] [place] [facility] - C[facility] CHLORIDE 109 mmol/L (100-108) H [facility] [place] [facility] - C[facility] CO2 23 mmol/L (22-31) [facility] [place] [facility] - C[facility] ANION GAP 10 mmol/L (7-16) [facility] [place] [facility] - CORE UREA NITROGEN 12 mg/dL (7-24) [facility] - [facility] CREATININE 0.79 mg/dL (0.80-1.30) L [facility] - C[facility] BUN/CREAT RATIO 15.2 RATIO (10.0-20.0) [facility] [place] [facility] - CORE GLUCOSE 79 mg/dL (70-99) [facility] [place] [facility] - C[facility] CALCIUM 8.6 mg/dL (8.4-10.2) [facility] [place] [facility] GFR >60 ml/min/1.73m2 (>59) [facility] [employer] - CORE GFR ( AMER) >60 ml/min/1.73m2 (>59) [facility] [place] [facility] [employer] - CORE GFR INTERPRETATION [facility] [place] [facility] [employer] CORE --NORMAL KIDNEY FUNCTION OR MILD DISEASE - GFR >OR= 60CHRONIC KIDNEY DISEASE - GFR 15 - 59RENAL FAILURE - GFR <15 Est. GFR calculation based on the MDRDstudy equation, which assumes a steadystate for creatinine. Est. GFR should notbe used for medication dosing. ID Date Data Source [id number] 04/03/2021 12:25:31 PM EDT [facility] Name Value Range Interpretation Code Description Data Giovana rce(s) Supporting Document(s) KEPPRA @ 11 ug/mL (5-30) [facility] [place] [facility] ID Date Data Source [id number] 04/05/2021 12:03:46 AM EDT [facility] Name Value Range Interpretation Code Description Data Giovana rce(s) Supporting Document(s) TOPIRAMATE 8.8 ug/mL [facility] [place] [facility] Reference range: 5.0 to 20.0 INTERPRETIV E INFORMATION: Topiramate Therapeutic range: 5.0-20.0 ug/mL Toxic: Not well established Pharmacokinetics varies widely, particularly with co-medications, age, and/or compromised renal function. Adverse effects may include somnolence, fatigue, and dizziness. Performed By: [facility] [address] [place] [id number] Bat Boy/Girl: Juana Mora MD ID Date Data Source [id number] 04/02/2021 12:47:16 PM EDT [facility] XR ANKLE 2 VIEWS [id number] RESULTInterp reted by:Eduardo Chaudhari [facility] [place] [place]: Status post surgical reconstruction right hindfoot.Views: 2 views right ankle and 3 views right footIndication: Check alignment status post hindfoot reconstructionFindings: The patient has normal-appearing distal tibia and fibula. Ankle mortise shows slight medial positioning of the mortise with the syndesmosis preserved. Significant prominence of the distal talus is noted and some posterior soft tissue ossification of the subtalar joint is noted. There are now 2 screws seen securing the subtalar articulation in the fused position. All hardware appears to be of appropriate length and in good position. There is some residual cavus deformity the midfoot noted.Impression: Status post right subtalar fusion This document has been electronically signed by Eduardo Chaudhari MD on 04/02/2021 12:45 PM Name Value Range Interpretation Code Description Data Giovana rce(s) Supporting Document(s) ID Date Data Source [id number] 04/02/2021 12:47:06 PM EDT [facility] XR FOOT 3 OR MORE VIEWS [id number] RESUL TInterpreted by:GWENDOLYN Hendrickslinical history: Status post surgical reconstruction right hindfoot.Views: 2 views right ankle and 3 views right footIndication: Check alignment status post hindfoot reconstructionFindings: The patient has normal-appearing distal tibia and fibula. Ankle mortise shows slight medial positioning of the mortise with the syndesmosis preserved. Significant prominence of the distal talus is noted and some posterior soft tissue ossification of the subtalar joint is noted. There are now 2 screws seen securing the subtalar articulation in the fused position. All hardware appears to be of appropriate length and in good position. There is some residual cavus deformity the midfoot noted.Impression: Status post right subtalar fusion This document has been electronically signed by Eduardo Chaudhari MD on 04/02/2021 12:44 PM Name Value Range Interpretation Code Description Data Giovana rce(s) Supporting Document(s) ID Date Data Source [id number] 03/29/2021 10:36:28 AM EDT [facility] Name Value Range Interpretation Code Description Data [facility] rce(s) Supporting Document(s) Progress Note [facility] [id number] [file] [id number] ID Date Data Source [id number] 03/29/2021 10:36:23 AM EDT [facility] Name Value Range Interpretation Code Description Data Giovana rce(s) Supporting Document(s) Progress Note [facility] [id number] [file] ID Date Data Source [id number] 03/29/2021 09:57:33 AM EDT [facility] Name Value Range Interpretation Code Description Data Giovana rce(s) Supporting Document(s) WBC 9.2 10*3/uL (4.1-11.0) [facility] RBC 5.17 10*6/uL (4.60-6.10) [facility] - C[facility] HGB 14.8 g/dL (13.5-18.0) [facility] - [facility] HCT 44.1 % (41.0-53.0) [facility] - [facility] MCV 85.2 fL (80.0-95.0) [facility] - C[facility] MCH 28.7 pg (27.0-32.0) [facility] - C[facility] MCHC 33.7 g/dL (32.0-36.0) [facility] - C[facility] RDW 15.2 % (10.5-14.5) H [facility] - CORE PLT 208 10*3/uL (150-450) [facility] - C[facility] MPV 7.6 fL (7.1-10.7) [facility] [place] [facility] - CORE NEUT % 65.5 % (35.0-75.0) [facility] - CORE LYMPH % 22.2 % (16.0-52.0) [facility] - CORE MONO % 8.1 % (0.0-8.0) H [facility] [place] [facility] - CORE EOS % 3.9 % (0.0-5.0) [facility] [place] [facility] - CORE BASO % 0.3 % (0.0-4.0) [facility] [place] [facility] - CORE NEUT # 6.0 10*3/uL (1.8-7.7) [facility] LYMPH # 2.0 10*3/uL (1.2-4.8) [facility] - C[facility] MONO # 0.7 10*3/uL (0.0-0.8) [facility] - C[facility] Eosinophils [#/volume] in Blood by Automated count 0.4 10*3/uL (0.0-0 .5) [facility] [place] [facility] - CORE BASO # 0.0 10*3/uL (0.0-0.2) [facility] ID Date Data Source [id number] 03/29/2021 10:39:45 AM EDT [facility] Name Value Range Interpretation Code Description Data Giovana rce(s) Supporting Document(s) SODIUM 141 mmol/L (136-145) [facility] [place] [facility] - C[facility] POTASSIUM 3.9 mmol/L (3.6-5.2) [facility] [place] [facility] [employer] - CORE CHLORIDE 107 mmol/L (100-108) [facility] [place] [facility] [employer] - CORE CO2 28 mmol/L (22-31) [facility] [place] [facility] [employer] - CORE ANION GAP 6 mmol/L (7-16) L [facility] [place] [facility] [employer] - CORE UREA NITROGEN 11 mg/dL (7-24) [facility] - C[facility] CREATININE 0.96 mg/dL (0.80-1.30) [facility] - CORE BUN/CREAT RATIO 11.5 RATIO (10.0-20.0) [facility] [place] [facility] - CORE GLUCOSE 75 mg/dL (70-99) [facility] [place] [facility] [employer] - CORE CALCIUM 8.9 mg/dL (8.4-10.2) [facility] [place] [facility] [employer] - CORE GFR >60 ml/min/1.73m2 (>59) [facility] [employer] - CORE GFR ( AMER) >60 ml/min/1.73m2 (>59) [facility] [place] [facility] [employer] - CORE GFR INTERPRETATION [facility] [place] [facility] [employer] CORE --NORMAL KIDNEY FUNCTION OR MILD DISEASE - GFR >OR= 60CHRONIC KIDNEY DISEASE - GFR 15 - 59RENAL FAILURE - GFR <15 Est. GFR calculation based on the MDRDstudy equation, which assumes a steadystate for creatinine. Est. GFR should notbe used for medication dosing. ID Date Data Source [id number] 03/26/2021 12:08:04 PM EDT [facility] [employer] [facility] [employer] Name Value Range Interpretation Code Description Data Giovana rce(s) Supporting Document(s) WBC 10.0 10*3/uL (4.1-11.0) [facility] - CORE RBC 5.37 10*6/uL (4.60-6.10) [facility] [employer] - CORE HGB 15.1 g/dL (13.5-18.0) [facility] - C[facility] HCT 45.9 % (41.0-53.0) [facility] - CORE MCV 85.5 fL (80.0-95.0) [facility] - CORE MCH 28.2 pg (27.0-32.0) [facility] - CORE MCHC 33.0 g/dL (32.0-36.0) [facility] - C[facility] RDW 15.4 % (10.5-14.5) H [facility] - CORE PLT 202 10*3/uL (150-450) [facility] - C[facility] MPV 7.8 fL (7.1-10.7) [facility] [place] [facility] - CORE NEUT % 69.9 % (35.0-75.0) [facility] - CORE LYMPH % 19.2 % (16.0-52.0) [facility] - CORE MONO % 7.3 % (0.0-8.0) [facility] [place] [facility] - CORE EOS % 3.3 % (0.0-5.0) [facility] [place] [facility] - CORE BASO % 0.3 % (0.0-4.0) [facility] [place] [facility] - CORE NEUT # 7.0 10*3/uL (1.8-7.7) [facility] - CORE LYMPH # 1.9 10*3/uL (1.2-4.8) [facility] - CORE MONO # 0.7 10*3/uL (0.0-0.8) [facility] - CORE Eosinophils [#/volume] in Blood by Automated count 0.3 10*3/uL (0.0-0 .5) [facility] [place] [facility] - CORE BASO # 0.0 10*3/uL (0.0-0.2) [facility] ID Date Data Source [id number] 03/26/2021 02:43:37 PM EDT [facility] Name Value Range Interpretation Code Description Data Giovana rce(s) Supporting Document(s) SODIUM 142 mmol/L (136-145) [facility] [place] [facility] [employer] - CORE POTASSIUM 4.1 mmol/L (3.6-5.2) [facility] [place] [facility] - CORE CHLORIDE 109 mmol/L (100-108) H [facility] [place] [facility] - CORE CO2 21 mmol/L (22-31) L [facility] [place] [facility] - CORE ANION GAP 12 mmol/L (7-16) [facility] [place] [facility] - CORE UREA NITROGEN 11 mg/dL (7-24) [facility] - CORE CREATININE 0.92 mg/dL (0.80-1.30) [facility] - CORE BUN/CREAT RATIO 12.0 RATIO (10.0-20.0) [facility] [place] [facility] - CORE GLUCOSE 66 mg/dL (70-99) L [facility] [place] [facility] - CORE CALCIUM 8.9 mg/dL (8.4-10.2) [facility] [place] [facility] - CORE GFR >60 ml/min/1.73m2 (>59) [facility] [employer] - C[facility] GFR ([facility]) >60 ml/min/1.73m2 (>59) [facility] [place] [facility] [employer] - CORE GFR INTERPRETATION Laboratory [place] [facility] [employer] CORE --NORMAL KIDNEY FUNCTION OR MILD DISEASE - GFR >OR= 60CHRONIC KIDNEY DISEASE - GFR 15 - 59RENAL FAILURE - GFR <15 Est. GFR calculation based on the MDRDstudy equation, which assumes a steadystate for creatinine. Est. GFR should notbe used for medication dosing. ID Date Data Source [id number] 03/22/2021 09:38:11 AM EDT [facility] [employer] [facility] [employer] Name Value Range Interpretation Code Description Data Giovana rce(s) Supporting Document(s) WBC 9.3 10*3/uL (4.1-11.0) [facility] - [facility] RBC 5.41 10*6/uL (4.60-6.10) [facility] - CORE HGB 15.2 g/dL (13.5-18.0) [facility] - C[facility] HCT 46.2 % (41.0-53.0) [facility] - C[facility] MCV 85.5 fL (80.0-95.0) [facility] - CORE MCH 28.0 pg (27.0-32.0) [facility] - CORE MCHC 32.8 g/dL (32.0-36.0) [facility] - CORE RDW 15.5 % (10.5-14.5) H [facility] - CORE PLT 221 10*3/uL (150-450) [facility] - CORE MPV 7.6 fL (7.1-10.7) [facility] [place] [facility] - CORE NEUT % 71.0 % (35.0-75.0) [facility] - CORE LYMPH % 18.9 % (16.0-52.0) [facility] - CORE MONO % 6.6 % (0.0-8.0) [facility] [place] [facility] - CORE EOS % 3.3 % (0.0-5.0) [facility] [place] [facility] - CORE BASO % 0.2 % (0.0-4.0) [facility] [place] [facility] - CORE NEUT # 6.6 10*3/uL (1.8-7.7) [facility] - CORE LYMPH # 1.8 10*3/uL (1.2-4.8) [facility] - CORE MONO # 0.6 10*3/uL (0.0-0.8) [facility] - CORE Eosinophils [#/volume] in Blood by Automated count 0.3 10*3/uL (0.0-0 .5) [facility] [place] [facility] - CORE BASO # 0.0 10*3/uL (0.0-0.2) [facility] ID Date Data Source [id number] 03/22/2021 10:14:01 AM EDT [facility] Name Value Range Interpretation Code Description Data Giovana rce(s) Supporting Document(s) SODIUM 141 mmol/L (136-145) [facility] [place] [facility] - CORE POTASSIUM 3.8 mmol/L (3.6-5.2) [facility] [place] [facility] - CORE CHLORIDE 106 mmol/L (100-108) [facility] [place] [facility] - CORE CO2 23 mmol/L (22-31) [facility] [place] [facility] - CORE ANION GAP 12 mmol/L (7-16) [facility] [place] [facility] - CORE UREA NITROGEN 13 mg/dL (7-24) [facility] - CORE CREATININE 0.81 mg/dL (0.80-1.30) [facility] - CORE BUN/CREAT RATIO 16.0 RATIO (10.0-20.0) [facility] [place] [facility] - CORE GLUCOSE 75 mg/dL (70-99) [facility] [place] [facility] [employer] - CORE CALCIUM 8.2 mg/dL (8.4-10.2) L [facility] [place] [facility] - CORE GFR >60 ml/min/1.73m2 (>59) [facility] - CORE GFR ( AMER) >60 ml/min/1.73m2 (>59) [facility] [place] [facility] [employer] - CORE GFR INTERPRETATION [facility] [place] [facility] [employer] CORE --NORMAL KIDNEY FUNCTION OR MILD DISEASE - GFR >OR= 60CHRONIC KIDNEY DISEASE - GFR 15 - 59RENAL FAILURE - GFR <15 Est. GFR calculation based on the MDRDstudy equation, which assumes a steadystate for creatinine. Est. GFR should notbe used for medication dosing. ID Date Data Source [id number] 03/19/2021 10:06:24 AM EDT [facility] Name Value Range Interpretation Code Description Data Giovana rce(s) Supporting Document(s) WBC 9.5 10*3/uL (4.1-11.0) [facility] - C[facility] RBC 5.23 10*6/uL (4.60-6.10) [facility] - CORE HGB 14.7 g/dL (13.5-18.0) [facility] - C[facility] HCT 44.4 % (41.0-53.0) [facility] - CORE MCV 84.9 fL (80.0-95.0) [facility] - CORE MCH 28.2 pg (27.0-32.0) [facility] - CORE MCHC 33.2 g/dL (32.0-36.0) [facility] - CORE RDW 15.2 % (10.5-14.5) H [facility] - CORE PLT 211 10*3/uL (150-450) [facility] - CORE MPV 7.7 fL (7.1-10.7) [facility] [place] [facility] - CORE NEUT % 67.6 % (35.0-75.0) [facility] CORE LYMPH % 21.1 % (16.0-52.0) [facility] CORE MONO % 6.7 % (0.0-8.0) [facility] [place] [facility] - CORE EOS % 4.3 % (0.0-5.0) [facility] [place] [facility] - CORE BASO % 0.3 % (0.0-4.0) [facility] [place] [facility] - CORE NEUT # 6.4 10*3/uL (1.8-7.7) [facility] - CORE LYMPH # 2.0 10*3/uL (1.2-4.8) [facility] CORE MONO # 0.6 10*3/uL (0.0-0.8) [facility] CORE Eosinophils [#/volume] in Blood by Automated count 0.4 10*3/uL (0.0-0 .5) [facility] [place] [facility] - CORE BASO # 0.0 10*3/uL (0.0-0.2) [facility] ID Date Data Source [id number] 03/19/2021 01:29:50 PM EDT [facility] - CORE Name Value Range Interpretation Code Description Data Giovana rce(s) Supporting Document(s) KEPPRA @ 9 ug/mL (5-30) [facility] [place] [facility] - CORE ID Date Data Source [id number] 03/19/2021 01:30:25 PM EDT [facility] - CORE Name Value Range Interpretation Code Description Data Giovana rce(s) Supporting Document(s) SODIUM 140 mmol/L (136-145) [facility] [place] [facility] - CORE POTASSIUM 3.9 mmol/L (3.6-5.2) [facility] [place] [facility] - CORE CHLORIDE 105 mmol/L (100-108) [facility] [place] [facility] - CORE CO2 23 mmol/L (22-31) [facility] [place] [facility] - CORE ANION GAP 12 mmol/L (7-16) [facility] [place] [facility] - CORE UREA NITROGEN 12 mg/dL (7-24) [facility] CORE CREATININE 0.87 mg/dL (0.80-1.30) [facility] - [facility]ORE BUN/CREAT RATIO 13.8 RATIO (10.0-20.0) [facility] [place] [facility] - CORE GLUCOSE 60 mg/dL (70-99) L [facility] [place] [facility] - CORE CALCIUM 8.2 mg/dL (8.4-10.2) L [facility] [place] [facility] - CORE GFR >60 ml/min/1.73m2 (>59) [facility] - CORE GFR ( AMER) >60 ml/min/1.73m2 (>59) [facility] [place] [facility] [facility] - CORE GFR INTERPRETATION Laboratory [place] [facility] CORE --NORMAL KIDNEY FUNCTION OR MILD DISEASE - GFR >OR= 60CHRONIC KIDNEY DISEASE - GFR 15 - 59RENAL FAILURE - GFR <15 Est. GFR calculation based on the MDRDstudy equation, which assumes a steadystate for creatinine. Est. GFR should notbe used for medication dosing. ID Date Data Source [id number] 03/20/2021 10:03:38 PM EDT [facility] Name Value Range Interpretation Code Description Data Giovana rce(s) Supporting Document(s) TOPIRAMATE 9.8 ug/mL Laboratory [place] [facility] - CORE Reference range: 5.0 to 20.0 INTERPRETIV E INFORMATION: Topiramate Therapeutic range: 5.0-20.0 ug/mL Toxic: Not well established Pharmacokinetics varies widely, particularly with co-medications, age, and/or compromised renal function. Adverse effects may include somnolence, fatigue, and dizziness. Performed By: [facility] [address] [place] [id number] Bat Boy/Girl: Juana Mora MD ID Date Data Source [id number] 03/15/2021 12:46:40 PM EDT [facility] Name Value Range Interpretation Code Description Data Giovana rce(s) Supporting Document(s) SODIUM 141 mmol/L (136-145) Laboratory [place] [facility] - CORE POTASSIUM 4.2 mmol/L (3.6-5.2) Laboratory [place] [facility] - CORE CHLORIDE 106 mmol/L (100-108) Laboratory [place] [facility] - CORE CO2 26 mmol/L (22-31) Laboratory [place] [facility] - CORE ANION GAP 9 mmol/L (7-16) Laboratory [place] [facility] - CORE UREA NITROGEN 11 mg/dL (7-24) Laboratory [facility] - CORE CREATININE 0.84 mg/dL (0.80-1.30) Laboratory [facility] - CORE BUN/CREAT RATIO 13.1 RATIO (10.0-20.0) Laboratory [place] [facility] - CORE GLUCOSE 67 mg/dL (70-99) L Laboratory [place] [facility] - CORE CALCIUM 8.4 mg/dL (8.4-10.2) Laboratory [place] [facility] - CORE GFR >60 ml/min/1.73m2 (>59) Laboratory [facility] - CORE GFR ( AMER) >60 ml/min/1.73m2 (>59) Laboratory [facility] GFR INTERPRETATION Laboratory [place] [facility] [place]NORMAL KIDNEY FUNCTION OR MILD DISEASE - GFR >OR= 60CHRONIC KIDNEY DISEASE - GFR 15 - 59RENAL FAILURE - GFR <15 Est. GFR calculation based on the MDRDstudy equation, which assumes a steadystate for creatinine. Est. GFR should notbe used for medication dosing. ID Date Data Source [id number] 03/15/2021 12:48:09 PM EDT Laboratory [facility] [place] Name Value Range Interpretation Code Description Data Giovana rce(s) Supporting Document(s) WBC 9.2 10*3/uL (4.1-11.0) Laboratory [place] [facility] - CORE RBC 5.39 10*6/uL (4.60-6.10) Laboratory [place] [facility] of [facility] - CORE HGB 15.3 g/dL (13.5-18.0) Laboratory [facility] - CORE HCT 46.2 % (41.0-53.0) Laboratory [facility] - CORE MCV 85.8 fL (80.0-95.0) [facility] - CORE MCH 28.5 pg (27.0-32.0) [facility] - CORE MCHC 33.2 g/dL (32.0-36.0) [facility] - CORE RDW 15.6 % (10.5-14.5) H Laboratory [place] [facility] of [facility] - CORE PLT 227 10*3/uL (150-450) Laboratory [facility] - CORE MPV 7.6 fL (7.1-10.7) [facility] [place] [facility] CORE NEUT % 69.2 % (35.0-75.0) Laboratory [place] - CORE LYMPH % 20.0 % (16.0-52.0) Laboratory [facility] - CORE MONO % 6.7 % (0.0-8.0) Laboratory [place] [facility] - CORE EOS % 3.8 % (0.0-5.0) Laboratory [place] [facility] - CORE BASO % 0.3 % (0.0-4.0) Laboratory [place] [facility] - CORE NEUT # 6.4 10*3/uL (1.8-7.7) Laboratory [facility] - CORE LYMPH # 1.9 10*3/uL (1.2-4.8) Laboratory [facility] - CORE MONO # 0.6 10*3/uL (0.0-0.8) Laboratory [facility] - CORE Eosinophils [#/volume] in Blood by Automated count 0.4 10*3/uL (0.0-0 .5) Laboratory [place] [facility] - CORE BASO # 0.0 10*3/uL (0.0-0.2) Laboratory [facility] - CORE ID Date Data Source [id number] 03/12/2021 02:10:14 PM EDT Laboratory [facility] - CORE Name Value Range Interpretation Code Description Data Giovana rce(s) Supporting Document(s) WBC 9.6 10*3/uL (4.1-11.0) Laboratory [facility] - CORE RBC 5.24 10*6/uL (4.60-6.10) Laboratory [facility] - CORE HGB 15.1 g/dL (13.5-18.0) Laboratory [facility] - CORE HCT 45.1 % (41.0-53.0) Laboratory [facility] - CORE MCV 86.0 fL (80.0-95.0) Laboratory [facility] - CORE MCH 28.8 pg (27.0-32.0) Laboratory [facility] - CORE MCHC 33.5 g/dL (32.0-36.0) Laboratory [facility] - CORE RDW 15.7 % (10.5-14.5) H Laboratory [facility] of [facility] - CORE PLT 221 10*3/uL (150-450) Laboratory [facility] - CORE MPV 8.0 fL (7.1-10.7) Laboratory [place] [facility] - CORE NEUT % 72.9 % (35.0-75.0) [facility] - CORE LYMPH % 16.4 % (16.0-52.0) [facility] of [facility] - CORE MONO % 6.4 % (0.0-8.0) Laboratory [place] [facility] - CORE EOS % 4.1 % (0.0-5.0) Laboratory [place] [facility] - CORE BASO % 0.2 % (0.0-4.0) Laboratory [place] [facility] - CORE NEUT # 7.0 10*3/uL (1.8-7.7) Laboratory [facility] of CNY - CORE LYMPH # 1.6 10*3/uL (1.2-4.8) [facility] - CORE MONO # 0.6 10*3/uL (0.0-0.8) Laboratory [facility] of CNY - CORE Eosinophils [#/volume] in Blood by Automated count 0.4 10*3/uL (0.0-0 .5) Laboratory [place] [facility] - CORE BASO # 0.0 10*3/uL (0.0-0.2) [facility] of [facility] - CORE ID Date Data Source [id number] 03/12/2021 02:57:16 PM EDT [facility] - CORE Name Value Range Interpretation Code Description Data Giovana rce(s) Supporting Document(s) SODIUM 141 mmol/L (136-145) Laboratory [place] [facility] - CORE POTASSIUM 4.0 mmol/L (3.6-5.2) Laboratory [place] [facility] - CORE CHLORIDE 106 mmol/L (100-108) Laboratory [place] [facility] - CORE CO2 24 mmol/L (22-31) Laboratory [place] [facility] - CORE ANION GAP 11 mmol/L (7-16) Laboratory [place] [facility] - CORE UREA NITROGEN 12 mg/dL (7-24) [facility] CREATININE 0.82 mg/dL (0.80-1.30) Laboratory [facility] of [facility] - CORE BUN/CREAT RATIO 14.6 RATIO (10.0-20.0) Laboratory [place] [facility] - CORE GLUCOSE 64 mg/dL (70-99) L Laboratory [place] [facility] - CORE CALCIUM 8.4 mg/dL (8.4-10.2) Laboratory [place] [facility] - CORE GFR >60 ml/min/1.73m2 (>59) Laboratory [facility] - CORE GFR ( AMER) >60 ml/min/1.73m2 (>59) Laboratory [place] [facility] - CORE GFR INTERPRETATION Laboratory [place] [facility] - CORE --NORMAL KIDNEY FUNCTION OR MILD DISEASE - GFR >OR= 60CHRONIC KIDNEY DISEASE - GFR 15 - 59RENAL FAILURE - GFR <15 Est. GFR calculation based on the MDRDstudy equation, which assumes a steadystate for creatinine. Est. GFR should notbe used for medication dosing. ID Date Data Source [id number] 03/08/2021 10:02:19 AM EDT Laboratory [facility] - CORE Name Value Range Interpretation Code Description Data Giovana rce(s) Supporting Document(s) WBC 9.7 10*3/uL (4.1-11.0) Laboratory [place] - CORE RBC 5.12 10*6/uL (4.60-6.10) Laboratory [place] [facility] of [facility] - CORE HGB 14.7 g/dL (13.5-18.0) Laboratory [facility] - CORE HCT 44.1 % (41.0-53.0) Laboratory [facility] - CORE MCV 86.0 fL (80.0-95.0) Laboratory [facility] - CORE MCH 28.6 pg (27.0-32.0) Laboratory [facility] - CORE MCHC 33.3 g/dL (32.0-36.0) Laboratory [facility] - CORE RDW 15.1 % (10.5-14.5) H Laboratory [facility] of [facility] - CORE PLT 198 10*3/uL (150-450) Laboratory [facility] - CORE MPV 7.7 fL (7.1-10.7) Laboratory [place] [facility] - CORE NEUT % 66.0 % (35.0-75.0) Laboratory [facility] - CORE LYMPH % 20.5 % (16.0-52.0) Laboratory [facility] - CORE MONO % 8.3 % (0.0-8.0) H Laboratory [place] [facility] - CORE EOS % 5.0 % (0.0-5.0) Laboratory [place] [facility] - CORE BASO % 0.2 % (0.0-4.0) Laboratory [place] [facility] - CORE NEUT # 6.4 10*3/uL (1.8-7.7) Laboratory [place] - CORE LYMPH # 2.0 10*3/uL (1.2-4.8) Laboratory [place] - CORE MONO # 0.8 10*3/uL (0.0-0.8) Laboratory [facility] - CORE Eosinophils [#/volume] in Blood by Automated count 0.5 10*3/uL (0.0-0 .5) Laboratory [place] [facility] - CORE BASO # 0.0 10*3/uL (0.0-0.2) Laboratory [facility] - CORE ID Date Data Source [id number] 03/08/2021 10:35:27 AM EDT Laboratory [facility] - CORE Name Value Range Interpretation Code Description Data Giovana rce(s) Supporting Document(s) SODIUM 140 mmol/L (136-145) Laboratory [place] [facility] - CORE POTASSIUM 3.6 mmol/L (3.6-5.2) Laboratory [place] [facility] - CORE CHLORIDE 108 mmol/L (100-108) Laboratory [place] [facility] - CORE CO2 25 mmol/L (22-31) Laboratory [place] [facility] - CORE ANION GAP 7 mmol/L (7-16) Laboratory [place] [facility] - CORE UREA NITROGEN 12 mg/dL (7-24) Laboratory [facility] of [facility] - CORE CREATININE 0.86 mg/dL (0.80-1.30) Laboratory [facility] n[facility] of CN[facility] - CORE BUN/CREAT RATIO 14.0 RATIO (10.0-20.0) Laboratory [place] [facility] - CORE GLUCOSE 76 mg/dL (70-99) Laboratory [place] [facility] - CORE CALCIUM 8.4 mg/dL (8.4-10.2) Laboratory [place] [facility] - CORE GFR >60 ml/min/1.73m2 (>59) Laboratory [facility] of [facility] - CORE GFR ( AMER) >60 ml/min/1.73m2 (>59) Laboratory [place] [facility] - CORE GFR INTERPRETATION Laboratory [place] [facility] - CORE --NORMAL KIDNEY FUNCTION OR MILD DISEASE - GFR >OR= 60CHRONIC KIDNEY DISEASE - GFR 15 - 59RENAL FAILURE - GFR <15 Est. GFR calculation based on the MDRDstudy equation, which assumes a steadystate for creatinine. Est. GFR should notbe used for medication dosing. ID Date Data Source [id number] 03/06/2021 12:42:20 PM EDT Laboratory [facility] - CORE Name Value Range Interpretation Code Description Data Giovana rce(s) Supporting Document(s) WBC 9.1 10*3/uL (4.1-11.0) Laboratory [facility] - CORE RBC 5.22 10*6/uL (4.60-6.10) Laboratory [place] [facility] of [facility] - CORE HGB 14.7 g/dL (13.5-18.0) Laboratory [facility] - CORE HCT 45.0 % (41.0-53.0) Laboratory [facility] - CORE MCV 86.2 fL (80.0-95.0) Laboratory [facility] - CORE MCH 28.2 pg (27.0-32.0) Laboratory [facility] - CORE MCHC 32.8 g/dL (32.0-36.0) Laboratory [facility] - CORE RDW 15.8 % (10.5-14.5) H Laboratory [facility] - CORE PLT 197 10*3/uL (150-450) Laboratory [facility] - CORE MPV 8.0 fL (7.1-10.7) Laboratory [place] [facility] - CORE NEUT % 60.7 % (35.0-75.0) Laboratory [facility] - CORE LYMPH % 25.0 % (16.0-52.0) Laboratory [facility] - CORE MONO % 9.4 % (0.0-8.0) H Laboratory [place] [facility] - CORE EOS % 4.5 % (0.0-5.0) Laboratory [place] [facility] - CORE BASO % 0.4 % (0.0-4.0) Laboratory [place] [facility] - CORE NEUT # 5.5 10*3/uL (1.8-7.7) Laboratory [place] - CORE LYMPH # 2.3 10*3/uL (1.2-4.8) Laboratory [facility] - CORE MONO # 0.9 10*3/uL (0.0-0.8) H Laboratory [facility] - CORE Eosinophils [#/volume] in Blood by Automated count 0.4 10*3/uL (0.0-0 .5) Laboratory [place] [facility] - CORE BASO # 0.0 10*3/uL (0.0-0.2) Laboratory [facility] - CORE ID Date Data Source [id number] 03/06/2021 02:46:41 PM EDT Laboratory [place] [facility] [facility] - CORE Name Value Range Interpretation Code Description Data Giovana rce(s) Supporting Document(s) SODIUM 144 mmol/L (136-145) Laboratory [place] [facility] - CORE POTASSIUM 3.5 mmol/L (3.6-5.2) L Laboratory [place] [facility] - CORE CHLORIDE 107 mmol/L (100-108) Laboratory [place] [facility] - CORE CO2 25 mmol/L (22-31) Laboratory [place] [facility] - CORE ANION GAP 12 mmol/L (7-16) Laboratory [place] [facility] UREA NITROGEN 11 mg/dL (7-24) Laboratory [facility] CREATININE 0.93 mg/dL (0.80-1.30) Laboratory [facility] nce of [facility] - CORE BUN/CREAT RATIO 11.8 RATIO (10.0-20.0) Laboratory [place] [facility] GLUCOSE 56 mg/dL (70-99) L [facility] [place] [facility] CALCIUM 8.6 mg/dL (8.4-10.2) Laboratory [place] [facility] CORE GFR >60 ml/min/1.73m2 (>59) Laboratory [facility] GFR ( AMER) >60 ml/min/1.73m2 (>59) Laboratory [facility] GFR INTERPRETATION Laboratory [facility] [place]NORMAL KIDNEY FUNCTION OR MILD DISEASE - GFR >OR= 60CHRONIC KIDNEY DISEASE - GFR 15 - 59RENAL FAILURE - GFR <15 Est. GFR calculation based on the MDRDstudy equation, which assumes a steadystate for creatinine. Est. GFR should notbe used for medication dosing. ID Date Data Source [id number] 03/06/2021 02:53:20 PM EDT Laboratory [facility] [place] Name Value Range Interpretation Code Description Data Giovana rce(s) Supporting Document(s) KEPPRA @ 9 ug/mL (5-30) Laboratory [facility] ID Date Data Source [id number] 03/07/2021 07:10:13 PM EDT [facility] [place] Name Value Range Interpretation Code Description Data Giovana rce(s) Supporting Document(s) TOPIRAMATE 9.8 ug/mL Laboratory [facility] Reference range: 5.0 to 20.0 INTERPRETIV E INFORMATION: Topiramate Therapeutic range: 5.0-20.0 ug/mL Toxic: Not well established Pharmacokinetics varies widely, particularly with co-medications, age, and/or compromised renal function. Adverse effects may include somnolence, fatigue, and dizziness. Performed By: [facility] [address] [place] [id number] Bat Boy/Girl: Juana Mora MD ID Date Data Source [id number] 03/01/2021 10:03:08 AM EDT Laboratory [facility] [facility] - CORE Name Value Range Interpretation Code Description Data Giovana rce(s) Supporting Document(s) WBC 9.2 10*3/uL (4.1-11.0) Laboratory [facility] - CORE RBC 5.26 10*6/uL (4.60-6.10) Laboratory [facility] - CORE HGB 15.1 g/dL (13.5-18.0) Laboratory [facility] - CORE HCT 45.2 % (41.0-53.0) Laboratory [facility] - CORE MCV 85.9 fL (80.0-95.0) Laboratory [facility] - CORE MCH 28.7 pg (27.0-32.0) Laboratory [facility] - CORE MCHC 33.4 g/dL (32.0-36.0) Laboratory [facility] - CORE RDW 15.5 % (10.5-14.5) H Laboratory [facility] of [facility] - CORE PLT 198 10*3/uL (150-450) Laboratory [facility] - CORE MPV 7.7 fL (7.1-10.7) Laboratory [place] [facility] - CORE NEUT % 67.9 % (35.0-75.0) Laboratory [facility] - CORE LYMPH % 19.8 % (16.0-52.0) Laboratory [facility] - CORE MONO % 7.7 % (0.0-8.0) Laboratory [place] [facility] - CORE EOS % 4.3 % (0.0-5.0) Laboratory [place] [facility] - CORE BASO % 0.3 % (0.0-4.0) Laboratory [place] [facility] - CORE NEUT # 6.2 10*3/uL (1.8-7.7) Laboratory [facility] - CORE LYMPH # 1.8 10*3/uL (1.2-4.8) Laboratory [facility] - CORE MONO # 0.7 10*3/uL (0.0-0.8) [facility] - CORE Eosinophils [#/volume] in Blood by Automated count 0.4 10*3/uL (0.0-0 .5) Laboratory [place] [facility] - CORE BASO # 0.0 10*3/uL (0.0-0.2) Laboratory [facility] of [facility] - CORE ID Date Data Source [id number] 03/01/2021 10:34:43 AM EDT Laboratory [facility] - CORE Name Value Range Interpretation Code Description Data Giovana rce(s) Supporting Document(s) SODIUM 140 mmol/L (136-145) Laboratory [place] [facility] - CORE POTASSIUM 3.5 mmol/L (3.6-5.2) L Laboratory [place] [facility] - CORE CHLORIDE 106 mmol/L (100-108) Laboratory [place] [facility] - CORE CO2 27 mmol/L (22-31) Laboratory [place] [facility] - CORE ANION GAP 7 mmol/L (7-16) Laboratory [place] [facility] - CORE UREA NITROGEN 13 mg/dL (7-24) Laboratory [facility] - CORE CREATININE 0.90 mg/dL (0.80-1.30) Laboratory [facility] - CORE BUN/CREAT RATIO 14.4 RATIO (10.0-20.0) Laboratory [place] [facility] - CORE GLUCOSE 73 mg/dL (70-99) Laboratory [place] [facility] - CORE CALCIUM 8.7 mg/dL (8.4-10.2) Laboratory [place] [facility] - CORE GFR >60 ml/min/1.73m2 (>59) Laboratory [facility] of [facility] - CORE GFR ( AMER) >60 ml/min/1.73m2 (>59) Laboratory [place] [facility] - CORE GFR INTERPRETATION Laboratory [place] [facility] - CORE --NORMAL KIDNEY FUNCTION OR MILD DISEASE - GFR >OR= 60CHRONIC KIDNEY DISEASE - GFR 15 - 59RENAL FAILURE - GFR <15 Est. GFR calculation based on the MDRDstudy equation, which assumes a steadystate for creatinine. Est. GFR should notbe used for medication dosing. ID Date Data Source [id number] 02/27/2021 06:28:19 AM EDT [facility] Name Value Range Interpretation Code Description Data Giovana rce(s) Supporting Document(s) Progress Note [facility] [place] AXODSo8xSrOBEmHs62/LUVckEPRvx7AcOWkzDVs1SDqpEFPqI2EiDKZ9iX3yITX6MWqPPyKlRdYkFHOa lbm [file] DEw1NUIlFXSmPPD7VWS4AnS2DoH4KuFhNU8RTd9SPjL9FTR9yLBtXg2NNVhbPUKAZwMmGI4YQNe= ID Date Data Source [id number] 02/27/2021 06:28:09 AM EDT [facility] Name Value Range Interpretation Code Description Data Giovana rce(s) Supporting Document(s) Progress Note [facility] [place] MKSQMb5fRdBFOzWs26/AYTqoNUHav2NxWCuzOZx8SKlrAKUnZ4PtJNX0aC6rFQS0DZnDGdZrFaSdCODe lbm [file] ZqSzMOL8JQteOdLiSR3JUl3FJwT4IJZ2xZScTr7UMhM2VvxUEjXvRJ7TMWg= ID Date Data Source [id number] 02/26/2021 09:48:01 AM EDT Laboratory [facility] - CORE Name Value Range Interpretation Code Description Data Giovana rce(s) Supporting Document(s) WBC 9.3 10*3/uL (4.1-11.0) Laboratory [facility] - CORE RBC 5.21 10*6/uL (4.60-6.10) Laboratory [place] [facility] - CORE HGB 15.1 g/dL (13.5-18.0) Laboratory [facility] - CORE HCT 44.8 % (41.0-53.0) Laboratory [facility] - CORE MCV 85.9 fL (80.0-95.0) Laboratory [facility] - CORE MCH 29.0 pg (27.0-32.0) Laboratory [facility] - CORE MCHC 33.7 g/dL (32.0-36.0) Laboratory [facility] - CORE RDW 15.7 % (10.5-14.5) H Laboratory [facility] - CORE PLT 216 10*3/uL (150-450) Laboratory [facility] - CORE MPV 7.3 fL (7.1-10.7) Laboratory [place] [facility] - CORE NEUT % 68.5 % (35.0-75.0) Laboratory [facility] - CORE LYMPH % 20.0 % (16.0-52.0) Laboratory [facility] - CORE MONO % 7.0 % (0.0-8.0) Laboratory [place] [facility] - CORE EOS % 4.3 % (0.0-5.0) Laboratory [place] [facility] - CORE BASO % 0.2 % (0.0-4.0) Laboratory [place] [facility] - CORE NEUT # 6.4 10*3/uL (1.8-7.7) Laboratory [facility] - CORE LYMPH # 1.9 10*3/uL (1.2-4.8) Laboratory [facility] - CORE MONO # 0.7 10*3/uL (0.0-0.8) Laboratory [facility] - CORE Eosinophils [#/volume] in Blood by Automated count 0.4 10*3/uL (0.0-0 .5) Laboratory [place] [facility] - CORE BASO # 0.0 10*3/uL (0.0-0.2) Laboratory [facility] of CN[facility] - CORE ID Date Data Source [id number] 02/26/2021 10:52:39 AM EDT Laboratory [facility] - CORE Name Value Range Interpretation Code Description Data Giovana rce(s) Supporting Document(s) SODIUM 141 mmol/L (136-145) Laboratory [place] [facility] - CORE POTASSIUM 3.7 mmol/L (3.6-5.2) Laboratory [place] of [facility] - CORE CHLORIDE 107 mmol/L (100-108) Laboratory [place] of [facility] - CORE CO2 27 mmol/L (22-31) Laboratory [place] of [facility] - CORE ANION GAP 7 mmol/L (7-16) Laboratory [place] of [facility] - CORE UREA NITROGEN 12 mg/dL (7-24) Laboratory [facility] of [facility] - CORE CREATININE 0.87 mg/dL (0.80-1.30) Laboratory [facility] of [facility] - CORE BUN/CREAT RATIO 13.8 RATIO (10.0-20.0) Laboratory [place] [facility] - CORE GLUCOSE 71 mg/dL (70-99) Laboratory [place] [facility] - CORE CALCIUM 8.7 mg/dL (8.4-10.2) Laboratory [place] [facility] - CORE GFR >60 ml/min/1.73m2 (>59) Laboratory [facility] - CORE GFR ( AMER) >60 ml/min/1.73m2 (>59) Laboratory [place] [facility] - CORE GFR INTERPRETATION Laboratory [place] [facility] - CORE --NORMAL KIDNEY FUNCTION OR MILD DISEASE - GFR >OR= 60CHRONIC KIDNEY DISEASE - GFR 15 - 59RENAL FAILURE - GFR <15 Est. GFR calculation based on the MDRDstudy equation, which assumes a steadystate for creatinine. Est. GFR should notbe used for medication dosing. ID Date Data Source [id number] 02/27/2021 11:23:02 PM EDT Laboratory [facility] [place] [facility] Name Value Range Interpretation Code Description Data Giovana rce(s) Supporting Document(s) TOPIRAMATE 10.1 ug/mL [facility] Reference range: 5.0 to 20.0 INTERPRETIV E INFORMATION: Topiramate Therapeutic range: 5.0-20.0 ug/mL Toxic: Not well established Pharmacokinetics varies widely, particularly with co-medications, age, and/or compromised renal function. Adverse effects may include somnolence, fatigue, and dizziness. Performed By: [facility] [address] [place] [id number] Bat Boy/Girl: Juana Mora MD ID Date Data Source [id number] 02/22/2021 01:50:02 PM EDT [facility] Name Value Range Interpretation Code Description Data Giovana rce(s) Supporting Document(s) Progress Note [facility] [place] FPQZRq1tWoVCBjAp21/QDRaeEVLdu4RiHNpuUXn3USskQVHyF0NoTAP2dC4uQVT0LHpUJzGjIkCgMfI1 lbm [file] xT4/8Fon8bvLuyiK9gnzVVkG9L+uH0LU2vOBdUId2rXczf8Cr7ai8tn6eg+towel inspector/EGkc9A7qGdpu9VA/0 [file] Smith+aXd56fpRUVUaTw/jhrGp5BSE1hlYBcxZqn6jc+f FAq89BzqFEkp1ES3XuhBO3O4eQy6Hzfzfzc8UR7CMDGwZVcxFzkY1j/Pj01scEq8CG9kpbt1U2Qj5PXj XjKw+SajBUwGhYXpwGfQx9d4FEv89itHaw+fhI1lF0ax4hi6ih+f7CNnJy7CreQ86SdJzsh6paEadlds nJF1ONwexPemPAP4kagD8p0bQeMtkmsNxd3RL6ioP7 QUyWNfxAXxyDQ3AuJP98lAA5F+NSi8nlYU2FFAmWwOymnCPLUynZXWE3JPtI1U8vU0Zi9PvcnOkCG9m8 +sticov+stj/82Hp3dW2o8Fsntp38zQJPrh7X/RhYPftBLhtpI6lBCnIg0PrcAl6AtUAr+ljJ+hkcXTA 9PXSC56axOZYSc3mzHXR3sQxK8oLvt5yXesk1Jmyo9 GRnznkwzU0KIhQz3R07J7FOjGzLUZWXEDn+ejqfPR+b60x/Licensing Director/4GzrhZvsdzlZ+50D1v63D1svr5ibbm [file] gCLjQoTM5QIUr= ID Date Data Source [id number] 02/22/2021 01:30:19 PM EDT [facility] Name Value Range Interpretation Code Description Data Giovana rce(s) Supporting Document(s) WBC 7.9 10*3/uL (4.1-11.0) [facility] RBC 5.03 10*6/uL (4.60-6.10) [facility] - C[facility] HGB 14.5 g/dL (13.5-18.0) [facility] HCT 42.5 % (41.0-53.0) [facility] MCV 84.5 fL (80.0-95.0) [facility] MCH 28.8 pg (27.0-32.0) [facility] MCHC 34.0 g/dL (32.0-36.0) [facility] RDW 15.2 % (10.5-14.5) H [facility] C[facility] PLT 242 10*3/uL (150-450) [facility] MPV 7.4 fL (7.1-10.7) [facility] [place] [facility] - CORE NEUT % 66.6 % (35.0-75.0) [facility] LYMPH % 20.7 % (16.0-52.0) [facility] MONO % 7.0 % (0.0-8.0) [facility] [place] [facility] - CORE EOS % 5.4 % (0.0-5.0) H [facility] [place] [facility] - CORE BASO % 0.3 % (0.0-4.0) [facility] [place] [facility] - CORE NEUT # 5.3 10*3/uL (1.8-7.7) [facility] LYMPH # 1.6 10*3/uL (1.2-4.8) [facility] MONO # 0.5 10*3/uL (0.0-0.8) [facility]ORE Eosinophils [#/volume] in Blood by Automated count 0.4 10*3/uL (0.0-0 .5) [facility] [place] [facility] - CORE BASO # 0.0 10*3/uL (0.0-0.2) [facility] ID Date Data Source [id number] 02/22/2021 03:19:00 PM EDT [facility] Name Value Range Interpretation Code Description Data Giovana rce(s) Supporting Document(s) SODIUM 141 mmol/L (136-145) [facility] [place] [facility] - CORE POTASSIUM 3.6 mmol/L (3.6-5.2) [facility] [place] [facility] - CORE CHLORIDE 106 mmol/L (100-108) [facility] [place] [facility] - CORE CO2 25 mmol/L (22-31) [facility] [place] [facility] - CORE ANION GAP 10 mmol/L (7-16) [facility] [place] [facility] - CORE UREA NITROGEN 10 mg/dL (7-24) [facility] CREATININE 0.92 mg/dL (0.80-1.30) [facility] BUN/CREAT RATIO 10.9 RATIO (10.0-20.0) [facility] [place] [facility] [place] GLUCOSE 91 mg/dL (70-99) Laboratory [place] [facility] - [facility] CALCIUM 8.7 mg/dL (8.4-10.2) Laboratory [place] [facility] - [facility] [place] [facility] GFR >60 ml/min/1.73m2 (>59) Laboratory [facility] of [facility] - CORE GFR ( AMER) >60 ml/min/1.73m2 (>59) Laboratory [place] [facility] - [employer] GFR INTERPRETATION Laboratory [place] of [facility] --NORMAL KIDNEY FUNCTION OR MILD DISEASE - GFR >OR= 60CHRONIC KIDNEY DISEASE - GFR 15 - 59RENAL FAILURE - GFR <15 Est. GFR calculation based on the MDRDstudy equation, which assumes a steadystate for creatinine. Est. GFR should notbe used for medication dosing. ID Date Data Source [id number] 02/20/2021 05:13:02 PM [facility] Name Value Range Interpretation Code Description Data Giovana rce(s) Supporting Document(s) Levetiracetam [Mass/volume] in Serum or Plasma 14 ug/mL 12-46 [facility] ID Date Data Source [id number] 02/20/2021 12:20:16 PM [facility] Value Range Interpretation Code Description Data Giovaan rce(s) Supporting Document(s) Leukocytes [#/volume] in Blood by Automated count 8.4 10*3/uL 4-10 [facility] Erythrocytes [#/volume] in Blood by Automated count 5.28 10*6/uL 4.6- 6.1 [facility] Hemoglobin [Mass/volume] in Blood 15.1 g/dL 13.5-18 [facility] Hematocrit [Volume Fraction] of Blood by Automated count 45.4 % 4 1-53 [facility] Erythrocyte mean corpuscular volume [Entitic volume] by Auto mated count 85.9 fL 80-96 [facility] Erythrocyte mean corpuscular hemoglobin [Entitic mass] by Automated count 28.6 pg 27-33 [facility] Erythrocyte mean corpuscular hemoglobin concentration [Mass/volume] by Automated count 33.2 g/dL 32.0-36.0 [facility] Erythrocyte distribution width [Ratio] by Automated count 15.1 % 11.5-14.5 H [facility] Platelets [#/volume] in Blood by Automated count 267 10*3/uL 150-400 [facility] Differential cell count method - Blood [facility] Neutrophils/100 leukocytes in Blood by Automated count 71 % [facility] Lymphocytes/100 leukocytes in Blood by Automated count 19 % [facility] Monocytes/100 leukocytes in Blood by Automated count 6 % [facility] Eosinophils/100 leukocytes in Blood by Automated count 4 % [facility] Basophils/100 leukocytes in Blood by Automated count 0 % [facility] Neutrophils [#/volume] in Blood by Automated count 5.88 10*3/uL 1.8-7 .0 [facility] Lymphocytes [#/volume] in Blood by Automated count 1.56 10*3/uL 1.2-4 .0 [facility] Monocytes [#/volume] in Blood by Automated count 0.52 10*3/uL 0-0.8 [facility] Eosinophils [#/volume] in Blood by Automated count 0.37 10*3/uL 0-0.5 [facility] Basophils [#/volume] in Blood by Automated count 0.03 10*3/uL 0-0.2 [facility] Nucleated erythrocytes/100 leukocytes [Ratio] in Blood by Automated count 0 /100{WBCs} 0-0 [facility] ID Date Data Source [id number] 02/20/2021 12:44:32 PM EDT [facility] Name Value Range Interpretation Code Description Data Giovana rce(s) Supporting Document(s) Albumin [Mass/volume] in Serum or Plasma by Bromocresol green (BCG) dye binding method 3.9 g/dL 3.5-5.2 [facility] Bilirubin.total [Mass/volume] in Serum or Plasma 0.3 mg/dL <1.2 [facility] Calcium [Mass/volume] in Serum or Plasma 9.1 mg/dL 8.6-10.0 [facility] Chloride [Moles/volume] in Serum or Plasma 104 mmol/L 98-107 [facility] Creatinine [Mass/volume] in Serum or Plasma 1.00 mg/dL 0.70-1.20 [facility] Glucose [Mass/volume] in Serum or Plasma 80 mg/dL 70-140 [facility] Alkaline phosphatase [Enzymatic activity/volume] in Serum or Plasma 96 U/L 40-129 [facility] Potassium [Moles/volume] in Serum or Plasma 3.6 mmol/L 3.4-5.1 [facility] Protein [Mass/volume] in Serum or Plasma 7.9 g/dL 6.4-8.3 [facility] Sodium [Moles/volume] in Serum or Plasma 142 mmol/L 136-145 [facility] Aspartate aminotransferase [Enzymatic activity/volume] in Serum or Plasma 24 U/L <40 [facility] Urea nitrogen [Mass/volume] in Serum or Plasma 11 mg/dL 6-20 [facility] Osmolality of Serum or Plasma by calculation 292 mosm/kg 275-300 [facility] Creatinine/Urea nitrogen [Mass Ratio] in Serum or Plasma 11 [facility] Bicarbonate [Moles/volume] in Serum 25 mmol/L 22-29 [facility] Alanine aminotransferase [Enzymatic activity/volume] in Seru m or Plasma 38 U/L <41 [facility] Anion gap 3 in Serum or Plasma 13 mmol/L 8-15 [facility] Glomerular filtration rate/1.73 sq M pre dicted among non-blacks [Volume Rate/Area] in Serum or Plasma by Creatinine-based formula (MDRD) >6 0 [facility] Glomerular filtration rate/1.73 sq M pre dicted among blacks [Volume Rate/Area] in Serum or Plasma by Creatinine-based formula (MDRD) >60 [facility] ID Date Data Source [id number] 02/20/2021 12:44:32 PM EDT [facility] Name Value Range Interpretation Code Description Data Giovana rce(s) Supporting Document(s) Topiramate [Mass/volume] in Serum or Plasma 15.7 ug/mL <25.0 [facility] ID Date Data Source [id number] 02/19/2021 01:03:07 PM EDT Laboratory [facility] of [facility] Name Value Range Interpretation Code Description Data Giovana rce(s) Supporting Document(s) WBC 8.1 10*3/uL (4.1-11.0) [facility] [place] - CORE RBC 5.17 10*6/uL (4.60-6.10) Laboratory [place] [facility] - CORE HGB 14.8 g/dL (13.5-18.0) [facility] - CORE HCT 44.7 % (41.0-53.0) [facility] - C[facility] MCV 86.4 fL (80.0-95.0) [facility] - CORE MCH 28.6 pg (27.0-32.0) [facility] - CORE MCHC 33.1 g/dL (32.0-36.0) [facility] - CORE RDW 14.8 % (10.5-14.5) H [facility] - CORE PLT 234 10*3/uL (150-450) [facility] - C[facility] MPV 7.6 fL (7.1-10.7) [facility] [place] [facility] - CORE NEUT % 67.1 % (35.0-75.0) [facility] - CORE LYMPH % 22.3 % (16.0-52.0) [facility] - CORE MONO % 6.1 % (0.0-8.0) [facility] [place] [facility] - C[facility] EOS % 4.1 % (0.0-5.0) [facility] [place] [facility] - CORE BASO % 0.4 % (0.0-4.0) [facility] [place] [facility] - CORE NEUT # 5.4 10*3/uL (1.8-7.7) [facility] - CORE LYMPH # 1.8 10*3/uL (1.2-4.8) [facility] - CORE MONO # 0.5 10*3/uL (0.0-0.8) [facility] - CORE Eosinophils [#/volume] in Blood by Automated count 0.3 10*3/uL (0.0-0 .5) Laboratory [place] [facility] - CORE BASO # 0.0 10*3/uL (0.0-0.2) [facility] ID Date Data Source [id number] 02/19/2021 02:31:03 PM EDT Laboratory Al [facility] of [facility] Name Value Range Interpretation Code Description Data Giovana rce(s) Supporting Document(s) 25 HYDROXY VIT D @ 34 ng/mL (31-100) [facility] [place] [facility] A REVIEW OF THE LITERATURE SUGGESTS THEF OLLOWING RANGES FOR THE CLASSIFICATIONOF 25-OH VITAMIN D STATUS: VITAMIN D STATUS 25-OH VITAMIN D DEFICIENCY <20 NG/MLINSUFFICIENCY 20-30 NG/MLSUFFICIENCY 31 - 100 NG/MLTOXICITY > 100 NG/ML A PEDIATRIC REFERENCE RANGE HAS NOT BEENESTABLISHED USING THIS METHOD. ID Date Data Source [id number] 02/19/2021 03:28:57 PM EDT Laboratory [facility] of [facility] Name Value Range Interpretation Code Description Data Giovana rce(s) Supporting Document(s) SODIUM 141 mmol/L (136-145) Laboratory [place] [facility] CORE POTASSIUM 3.7 mmol/L (3.6-5.2) Laboratory [place] of [facility] [employer] CORE CHLORIDE 106 mmol/L (100-108) Laboratory [place] of [employer] - CORE CO2 21 mmol/L (22-31) L Laboratory [place] of [employer] - CORE ANION GAP 14 mmol/L (7-16) Laboratory [place] [facility] CORE UREA NITROGEN 11 mg/dL (7-24) Laboratory [facility] of [employer] - CORE CREATININE 0.94 mg/dL (0.80-1.30) Laboratory [facility] of [facility] - CORE BUN/CREAT RATIO 11.7 RATIO (10.0-20.0) Laboratory [place] of [employer] - CORE GLUCOSE 100 mg/dL (70-99) H Laboratory [place] of [employer] - CORE CALCIUM 8.7 mg/dL (8.4-10.2) Laboratory [place] of [employer] - CORE GFR >60 ml/min/1.73m2 (>59) Laboratory [facility] of [employer] - CORE GFR ( AMER) >60 ml/min/1.73m2 (>59) Laboratory [place] [facility] - [facility] GFR INTERPRETATION Laboratory [place] [facility] - [facility] --NORMAL KIDNEY FUNCTION OR MILD DISEASE - GFR >OR= 60CHRONIC KIDNEY DISEASE - GFR 15 - 59RENAL FAILURE - GFR <15 Est. GFR calculation based on the MDRDstudy equation, which assumes a steadystate for creatinine. Est. GFR should notbe used for medication dosing. ID Date Data Source [id number] 02/15/2021 01:00:28 PM EDT [facility] XR FOOT 2 VIEWS PORT-OR [id number] RESUL TInterpreted by:Cedric Jurado MDThis statement is intended for documentation purposes only.This exam was performed in the Operating Room by the Surgeon and a Radiologist was not present. Please refer to the Operative note in EPIC. This document has been electronically signed by Cedric Jurado MD on 02/15/2021 12:58 PM Name Value Range Interpretation Code Description Data Giovana rce(s) Supporting Document(s) ID Date Data Source [id number] 02/15/2021 11:52:26 AM EDT [facility] - [facility] Name Value Range Interpretation Code Description Data Giovana rce(s) Supporting Document(s) WBC 8.7 10*3/uL (4.1-11.0) [facility] - CORE RBC 5.25 10*6/uL (4.60-6.10) Laboratory [place] [facility] - CORE HGB 15.2 g/dL (13.5-18.0) [facility] - CORE HCT 44.9 % (41.0-53.0) [facility] - CORE MCV 85.6 fL (80.0-95.0) [facility] - CORE MCH 29.0 pg (27.0-32.0) [facility] - CORE MCHC 33.8 g/dL (32.0-36.0) [facility] - CORE RDW 15.0 % (10.5-14.5) H Laboratory [facility] - CORE PLT 311 10*3/uL (150-450) [facility] - CORE MPV 7.2 fL (7.1-10.7) Laboratory [place] [facility] - CORE NEUT % 65.4 % (35.0-75.0) [facility] - CORE LYMPH % 23.5 % (16.0-52.0) [facility] - CORE MONO % 7.0 % (0.0-8.0) Laboratory [place] [facility] - CORE EOS % 3.9 % (0.0-5.0) Laboratory [place] [facility] - CORE BASO % 0.2 % (0.0-4.0) Laboratory [place] [facility] - CORE NEUT # 5.7 10*3/uL (1.8-7.7) Laboratory [facility] - CORE LYMPH # 2.0 10*3/uL (1.2-4.8) [facility] - CORE MONO # 0.6 10*3/uL (0.0-0.8) [facility] - CORE Eosinophils [#/volume] in Blood by Automated count 0.3 10*3/uL (0.0-0 .5) Laboratory [place] [facility] - CORE BASO # 0.0 10*3/uL (0.0-0.2) Laboratory [facility] - C[facility] ID Date Data Source [id number] 02/15/2021 12:33:20 PM EDT [facility] - [facility] Name Value Range Interpretation Code Description Data Giovana rce(s) Supporting Document(s) SODIUM 140 mmol/L (136-145) Laboratory [place] [facility] - CORE POTASSIUM 3.8 mmol/L (3.6-5.2) Laboratory [place] [facility] - CORE CHLORIDE 105 mmol/L (100-108) Laboratory [place] [facility] - CORE CO2 26 mmol/L (22-31) Laboratory [place] [facility] - CORE ANION GAP 9 mmol/L (7-16) Laboratory [place] [facility] - CORE UREA NITROGEN 14 mg/dL (7-24) Laboratory [facility] - CORE CREATININE 0.93 mg/dL (0.80-1.30) Laboratory [facility] - CORE BUN/CREAT RATIO 15.1 RATIO (10.0-20.0) Laboratory [place] [facility] - CORE GLUCOSE 90 mg/dL (70-99) Laboratory [place] [facility] - CORE CALCIUM 9.0 mg/dL (8.4-10.2) Laboratory [place] [facility] - C[facility] GFR >60 ml/min/1.73m2 (>59) Laboratory [facility] - CORE GFR ( AMER) >60 ml/min/1.73m2 (>59) Laboratory [place] [facility] - CORE GFR INTERPRETATION Laboratory [place] [facility] - CORE --NORMAL KIDNEY FUNCTION OR MILD DISEASE - GFR >OR= 60CHRONIC KIDNEY DISEASE - GFR 15 - 59RENAL FAILURE - GFR <15 Est. GFR calculation based on the MDRDstudy equation, which assumes a steadystate for creatinine. Est. GFR should notbe used for medication dosing. ID Date Data Source [id number] 02/13/2021 10:32:45 AM EDT Laboratory [facility] of [facility] - CORE Name Value Range Interpretation Code Description Data Giovana rce(s) Supporting Document(s) WBC 9.4 10*3/uL (4.1-11.0) [facility] - CORE RBC 5.34 10*6/uL (4.60-6.10) Laboratory [place] [facility] - CORE HGB 15.3 g/dL (13.5-18.0) Laboratory [facility] - CORE HCT 45.4 % (41.0-53.0) [facility] - CORE MCV 84.9 fL (80.0-95.0) [facility] - CORE MCH 28.7 pg (27.0-32.0) [facility] - CORE MCHC 33.8 g/dL (32.0-36.0) Laboratory [facility] - CORE RDW 15.0 % (10.5-14.5) H Laboratory [facility] - CORE PLT 338 10*3/uL (150-450) Laboratory [facility] - CORE MPV 7.2 fL (7.1-10.7) [facility] [place] [facility] - CORE NEUT % 73.3 % (35.0-75.0) Laboratory [facility] - CORE LYMPH % 16.1 % (16.0-52.0) [facility] - CORE MONO % 6.4 % (0.0-8.0) Laboratory [place] [facility] - CORE EOS % 4.0 % (0.0-5.0) Laboratory [place] [facility] - CORE BASO % 0.2 % (0.0-4.0) Laboratory [place] [facility] - CORE NEUT # 6.9 10*3/uL (1.8-7.7) [facility] - CORE LYMPH # 1.5 10*3/uL (1.2-4.8) Laboratory [facility] - CORE MONO # 0.6 10*3/uL (0.0-0.8) [facility] - CORE Eosinophils [#/volume] in Blood by Automated count 0.4 10*3/uL (0.0-0 .5) Laboratory [place] [facility] - CORE BASO # 0.0 10*3/uL (0.0-0.2) Laboratory [facility] - [facility] ID Date Data Source [id number] 02/13/2021 11:13:05 AM EDT [facility] - [facility] Name Value Range Interpretation Code Description Data Giovana rce(s) Supporting Document(s) SODIUM 141 mmol/L (136-145) Laboratory [place] [facility] - CORE POTASSIUM 3.9 mmol/L (3.6-5.2) Laboratory [place] [facility] - CORE CHLORIDE 106 mmol/L (100-108) Laboratory [place] [facility] - CORE CO2 26 mmol/L (22-31) Laboratory [place] [facility] - CORE ANION GAP 9 mmol/L (7-16) Laboratory [place] [facility] - CORE UREA NITROGEN 13 mg/dL (7-24) Laboratory [facility] - CORE CREATININE 0.87 mg/dL (0.80-1.30) Laboratory [facility] - CORE BUN/CREAT RATIO 14.9 RATIO (10.0-20.0) Laboratory [place] [facility] - CORE GLUCOSE 78 mg/dL (70-99) Laboratory [place] [facility] - CORE CALCIUM 8.9 mg/dL (8.4-10.2) Laboratory [place] [facility] - CORE GFR >60 ml/min/1.73m2 (>59) Laboratory [facility] - CORE GFR ( AMER) >60 ml/min/1.73m2 (>59) Laboratory [place] [facility] - CORE GFR INTERPRETATION Laboratory [place] [facility] - CORE --NORMAL KIDNEY FUNCTION OR MILD DISEASE - GFR >OR= 60CHRONIC KIDNEY DISEASE - GFR 15 - 59RENAL FAILURE - GFR <15 Est. GFR calculation based on the MDRDstudy equation, which assumes a steadystate for creatinine. Est. GFR should notbe used for medication dosing. ID Date Data Source [id number] 02/09/2021 12:06:47 AM EDT [facility] Name Value Range Interpretation Code Description Data Giovana rce(s) Supporting Document(s) Progress Note [facility] YPASTa7fChPFAkJg56/LCSndTIEel5OhUHkxFVj0WPndIBGzH3DtVQT9jJ5aCLW1HKeFGwUoWmDbSgO3 [facility] OmMvrOJmQvFTFuEphOPoHzYDdiBhdqrWZePG0PpNJ2ZSOtO07jMHNeLKTuS6WzKVB7WZk+Yv7PMDEpqA UgJD1QBjhQ2X4yy+M28vsB/T4KWtt9w57eTS8SvmCCssEgTqZ53pd4nNw2QmHD3Zg/Uj+[place]+mP/Uoib [file] AgICAgICAgICAgICAgICAgICAgICAgICAgICAgICAgICAgICAgICAgICAgICAgICAgICAgICAgICAgIC LgEKDgTLLsNBLfYXLrDCPsQZBiCHDrRINoWV3PZFQhAYHgRTAbRMShDKYvPFVfKWFuAWZqRRDlPLTqBI AgICAgICAgICAgICAgICAgICAgICAgICAgICAgICAg HTGjXDLhASUkONYwSRUpKEJoQHSkHCErKSAlIFSrOADxUSBtLW3UJIBaZPZyZQAeYEAdARSdUZThRJRj ICAgICAgICAgICAgICAgICAgICAgICAgICAgICAgICAgICAgICAgICAgICAgICAgICAgICAgICAgICAg YXLkDDGxFNDpUHWvRVIoVHArVG6OQTEwWNBqFVDlBF AgICAgICAgICAgICAgICAgICAgICAgICAgICAgICAgICAgICAgICAgICAgICAgICAgICAgICAgICAgIC VwLALzYVShVSYtXBPqCBHxWFUxWAQsEUQqFVSlRV2IQLGzASWjCREqVWFiLXKkMKCbFWCaZWRfVBZaBF AgICAgICAgICAgICAgICAgICAgICAgICAgICAgICAg XNGhWRSvHJRcINSxXXXgGHOeDJChUPFxPFWtFVDkCABqUTXrVJTeQL2BJMCgVCEoKKLdTLQxRWWgEISf ICAgICAgICAgICAgICAgICAgICAgICAgICAgICAgICAgICAgICAgICAgICAgICAgICAgICAgICAgICAg BWByIVNjSYMdKHWvYHZnBWKsEAYbBN8OPNKwNXIxLB AgICAgICAgICAgICAgICAgICAgICAgICAgICAgICAgICAgICAgICAgICAgICAgICAgICAgICAgICAgIC MsBSQsROHqSRMmUZErSDQnLKQqDVFfPPTdMCChQAHgNN7QYMGnWUHnMJDaCSWyUBWaFIMwKSCqMWHjUQ AgICAgICAgICAgICAgICAgICAgICAgICAgICAgICAg VPVuMTGnSARtLHUkKYHjRBVgGFKmRSRhGRXqFKXmERAxBMLvAQYaNUTxRD9EFUQlLONcAYXzOVGjFUFi ICAgICAgICAgICAgICAgICAgICAgICAgICAgICAgICAgICAgICAgICAgICAgICAgICAgICAgICAgICAg PJAuLZLqUKIjMOIhVPWbSTBpHPCqVUDpHP4PSVDoQU AgICAgICAgICAgICAgICAgICAgICAgICAgICAgICAgICAgICAgICAgICAgICAgICAgICAgICAgICAgIC UlUIOpLKPnHUNcBBHrUJZmNEDhKLVzOFNiFOBlHXJpRCOzJG2EKV65lIZsl1E8PZOwXU2vvlb/Pg0KDQ pmqgXrmNGvTT8ZVvVmAR5rtz1PEzSdLY8zbj9CRHiL AqLtY6Q6vTAfIZFqQIKKJtYfG20fMSacCk04QVyoKPTiZnRbEHc1Dp5CBlTlC2edNFWiKqA5AFDiKwP9 CHQsPbV3RQVpKwPjWQPbCMHaJLBqOXRYFRI3FQYrIsYsPeFpCNWaZXjrTDILIKSrJPUqIhJsVvMgOHZt OG5QKLBuL160ayGyTQCYBa8+DQplbmRvYmoNCjQwID Bwg1KcTNu7KH1ZJNNqKpfjh2PeNJRfQNVKEJjvIQ7FQRH9XVToSDOsTn1CGAUbA866uoKqKI5AFb4PZg CbTI9yxi7IPOTvDMEcZpaLHew8NTgiOV4VeXMmZRsGzx8sbvEljnDQh6UctbNacZXOdDJ8k5HiRAITtD LjVhKdHBFUJAA0IXscTj7yRKFpZFL9CyR4TOOYKN4Q YIMwTPMclLZvJPObWXLBYU1WWJyzTFX4MWOuvqTsmWMjJJmoEM4RYAXdtyMlGWUkPUSHEJi+Dg0RIO9t c4RhGXr3OqDkEB8wya1RXIbHRgQfF1X0pAHaJ1K0RRnaPz5RSUCdBQDdCtwjBCNEDVetWS7MQO3oveP5 TA0PmVTkZVOiRYJvdAVmXBx5Y85jiCQbIVwwXE6DBU A+Jey+Xy6JAPPvLHEtASDuNxHaTENMGaOeS8IoO7HFb0MdR4UaSK90sNavfoZpYYdqUJ6JUQ4tIGEfYR PQWD3OmENoeW2lrgQ6NFDvZTZDQhQbO96rlEShCQBnTLR1QGXmRk5FFIQuA1MsljLcmFprpqVfRSYfFR MRZN6AIGhdxeWesIDubCjpVX48mAzaQT6TMs8MDcAr BB9oek4HkJAyFc4GLKK0Hu6HWQXnUBQoDSQaEWP9XVWvWoJlBWwjPLAoTUNkEQT0LYOpMAPyPD4TDpYa QBVpSBN2JeGqJXJwXSQlpb2VSSEqDWX4AkE5TrWpMSExVPXuPLniAHJbLIIwAST1SUIeOQUnZV0NIfGx HETcQHRzFExiIKDlKPSxob8GGMXmEKLrGeBxPDUpVX RmJAOsBLaaZYQrLRL4NLT1GAGuHNCnKJ0OKkBuVIEaGSFaWPJuFJQmVLKhfm3HYIVdRWOzIUt7PjRoGI PoPNAxNSukXMUuBEP0RDF0PNGaOXWjOT3CIrMbPPDvXPUtJBNbQXIoXXFmcx9MDSCrIDPqOQYiQLKhZG GyETHdMPtjEMAaCEJ5AWNmJEImPRMhMR7SCkUmRTLl XYL4FwBvGQEhTSYrov2WPJJmNKKnPITvFpRcNOXzQYFpPShjEGXdTMB0ZqX0UUKqCHMpSB2GUzXuBXMf GsC4GzvkQYMmOTKvoh7NREAmRAExZVv6XgTqYQNhFIZhTWdtPIQvFJXbEGuqJPPeEEPzTL7KZwJuPBSk SvLzDAjlGGBiBCQqcw4JFMNmRNVlWqU6JJTuPYGtYR DjAIrwUJSxINT8NeN0LAEtGYIrBM3PQmYnVEZqTid8QsSyCKEkTVNqql2WLRJxGVAeHDB1DWGaHIKeFM ZdZCqyXUAmYASaZVPtFEMnFBAsJF8XQzEtMUBzHwWiFPmyCCEcHGNcaq4YFTVkWTCtLXB9HUSqREXxBV KuVVixPDCwXAXaYZG9OFFfSYTvOJ0QVzOrUEReQxF9 XXAhMHOdSCTcvi3TEFYvJKLaZOujRTCySWVjACYlQTybMRPwBKFdBpO8JIBnWEJpMA3QKqZqLXYpPWI0 THDoGWWsVPFtmy1EZLWeKGB5Adh2JnTtFCScGEGbALcrPFEdEHM0JVMtQLIaSEPiLX6WYbZzNTCoJFNo MOfxUVUaPNNjiz8MNDHoLQD5KSNfKpBjRZRmBWIvYI exCTFqEXJ4EuTeDCUrAVPeQE9FXsFiYZWdSVG0VTpcYVNfVXZegk4LTFFxHRL3QOioBxFfJAFtNIAtGW pzWHXaQMA7LEE5FQYmQHDsKC0OXhSzMIMrMEn2PRsxPRWbAWJocm2HCFZaVHC4PvMtAyNaMTMlYQInZL y8awBpkFFiAXh8NR4MN1JmdrOuSFFRNe6Pm949APNk PKZjCv0II5vjLs2jQGGjYQDQYw4NTJa9CqL4NJQeXaZ3BrW4IUT2FSEzOYKpMDVzOgJrUQd2B5H+IDwy EXF8OIWoMiKkLLV6BJexANFyB3KwX4HbMtHrVGv1Qh3dOIIISc7+IBfimOAcjZjoJSORRvB1TBbhMPzs TBVFBp7H ID Date Data Source [id number] 02/08/2021 11:53:26 AM EDT [facility] Name Value Range Interpretation Code Description Data Giovana rce(s) Supporting Document(s) WBC 9.9 10*3/uL (4.1-11.0) [facility] - C[facility] RBC 4.73 10*6/uL (4.60-6.10) [facility] [facility] - CORE HGB 13.5 g/dL (13.5-18.0) [facility] - CORE HCT 40.6 % (41.0-53.0) L [facility] - CORE MCV 85.9 fL (80.0-95.0) [facility] - CORE MCH 28.5 pg (27.0-32.0) [facility] - CORE MCHC 33.1 g/dL (32.0-36.0) [facility] - CORE RDW 14.9 % (10.5-14.5) H [facility] C[facility] PLT 269 10*3/uL (150-450) [facility] MPV 7.2 fL (7.1-10.7) [facility] [place] [facility] - CORE NEUT % 70.1 % (35.0-75.0) [facility] LYMPH % 17.3 % (16.0-52.0) [facility] MONO % 8.1 % (0.0-8.0) H [facility] [place] [facility] - CORE EOS % 4.2 % (0.0-5.0) [facility] [place] [facility] - CORE BASO % 0.3 % (0.0-4.0) [facility] [place] [facility] - CORE NEUT # 7.0 10*3/uL (1.8-7.7) [facility] LYMPH # 1.7 10*3/uL (1.2-4.8) [facility] MONO # 0.8 10*3/uL (0.0-0.8) [facility] Eosinophils [#/volume] in Blood by Automated count 0.4 10*3/uL (0.0-0 .5) [facility] [place] [facility] - CORE BASO # 0.0 10*3/uL (0.0-0.2) [facility] ID Date Data Source [id number] 02/08/2021 12:28:59 PM EDT [facility] Name Value Range Interpretation Code Description Data Giovana rce(s) Supporting Document(s) KEPPRA @ 8 ug/mL (5-30) [facility] [place] [facility] - C[facility] ID Date Data Source [id number] 02/08/2021 12:52:00 PM EDT [facility] Name Value Range Interpretation Code Description Data Giovana rce(s) Supporting Document(s) SODIUM 142 mmol/L (136-145) [facility] [place] [facility] - CORE POTASSIUM 3.7 mmol/L (3.6-5.2) [facility] [place] [facility] - CORE CHLORIDE 105 mmol/L (100-108) [facility] [place] [facility] - CORE CO2 28 mmol/L (22-31) [facility] [place] [facility] - CORE ANION GAP 9 mmol/L (7-16) [facility] [place] [facility] - CORE UREA NITROGEN 17 mg/dL (7-24) [facility] CREATININE 0.79 mg/dL (0.80-1.30) L [facility] BUN/CREAT RATIO 21.5 RATIO (10.0-20.0) H [facility] [place] [facility] - CORE GLUCOSE 60 mg/dL (70-99) L [facility] [place] [facility] - CORE CALCIUM 8.7 mg/dL (8.4-10.2) [facility] [place] [facility] - CORE TOTAL PROTEIN 6.6 g/dL (6.4-8.2) [facility] ALBUMIN 2.8 g/dL (3.5-4.6) L [facility] [place] [facility] - CORE GLOBULIN 3.8 g/dL (2.7-4.3) [facility] [place] [facility] - CORE ALB/GLOB RATIO 0.7 RATIO [facility] CORE ALKALINE PHOSPHATASE 91 U/L (45-117) [facility] [place] [facility] - CORE BILIRUBIN,TOTAL 0.3 mg/dL (0.0-1.0) [facility] C[facility] PLEASE NOTE:Total bilirubin results may be falselyelevated in patients taking Eltrombopag. AST (SGOT) 26 U/L (11-39) [facility] [place] [facility] - CORE ALT (SGPT) 44 U/L (12-78) [facility] [place] [facility] - CORE GFR >60 ml/min/1.73m2 (>59) [facility] CORE GFR ( AMER) >60 ml/min/1.73m2 (>59) [facility] [place] [facility] - CORE GFR INTERPRETATION [facility] [place] [facility] - CORE --NORMAL KIDNEY FUNCTION OR MILD DISEASE - GFR >OR= 60CHRONIC KIDNEY DISEASE - GFR 15 - 59RENAL FAILURE - GFR <15 Est. GFR calculation based on the MDRDstudy equation, which assumes a steadystate for creatinine. Est. GFR should notbe used for medication dosing. ID Date Data Source [id number] 02/07/2021 11:46:42 AM EDT [facility] Name Value Range Interpretation Code Description Data Giovana rce(s) Supporting Document(s) Discharge Summary [facility] [id number]/URTphTYKqc7GkFSunYSw4DCgsTBMpW9JgKSP4zJ5xCXR4ZFwVLoDuFqBlHjD4 lbm [file] credit relationship manager/[id number]/Rd6hwMBfmr6wK7MUzDCaiBGF1SwP3sS+RwbtM7INSU1EsAm [file] dGE+DQogICAgICAgICAgICAgICAgICAgICAgICAgIC AgICAgICAgICAgICAgICAgICAgICAgICAgICAgICAgICAgICAgICAgICAgICAgICAgICAgICAgICAgIC AgICAgICAgICAgICAgDQogICAgICAgICAgICAgICAgICAgICAgICAgICAgICAgICAgICAgICAgICAgIC AgICAgICAgICAgICAgICAgICAgICAgICAgICAgICAg ICAgICAgICAgICAgICAgICAgICAgICAgDQogICAgICAgICAgICAgICAgICAgICAgICAgICAgICAgICAg ICAgICAgICAgICAgICAgICAgICAgICAgICAgICAgICAgICAgICAgICAgICAgICAgICAgICAgICAgICAg ICAgICAgDQogICAgICAgICAgICAgICAgICAgICAgIC AgICAgICAgICAgICAgICAgICAgICAgICAgICAgICAgICAgICAgICAgICAgICAgICAgICAgICAgICAgIC AgICAgICAgICAgICAgICAgDQogICAgICAgICAgICAgICAgICAgICAgICAgICAgICAgICAgICAgICAgIC AgICAgICAgICAgICAgICAgICAgICAgICAgICAgICAg ICAgICAgICAgICAgICAgICAgICAgICAgICAgDQogICAgICAgICAgICAgICAgICAgICAgICAgICAgICAg ICAgICAgICAgICAgICAgICAgICAgICAgICAgICAgICAgICAgICAgICAgICAgICAgICAgICAgICAgICAg ICAgICAgICAgDQogICAgICAgICAgICAgICAgICAgIC AgICAgICAgICAgICAgICAgICAgICAgICAgICAgICAgICAgICAgICAgICAgICAgICAgICAgICAgICAgIC AgICAgICAgICAgICAgICAgICAgDQogICAgICAgICAgICAgICAgICAgICAgICAgICAgICAgICAgICAgIC AgICAgICAgICAgICAgICAgICAgICAgICAgICAgICAg ICAgICAgICAgICAgICAgICAgICAgICAgICAgICAgDQogICAgICAgICAgICAgICAgICAgICAgICAgICAg ICAgICAgICAgICAgICAgICAgICAgICAgICAgICAgICAgICAgICAgICAgICAgICAgICAgICAgICAgICAg ICAgICAgICAgICAgDQogICAgICAgICAgICAgICAgIC AgICAgICAgICAgICAgICAgICAgICAgICAgICAgICAgICAgICAgICAgICAgICAgICAgICAgICAgICAgIC XrCXKjRJWcUVOxBGKkBUXmPXXdPKZjBUx5V6jqRIOfFIKxEK8pVOx4Gc1+GOrFJqYkDVG5yqZykC9AIC 0rp3YiOGyhLQFvb3McLEt3LB5TLGEkJHtiGI9OGZhl yo9PMXWhMUUnaNXQp2bsBsJyDLR7URCoFbzjOM0QYEVgQ7jigcWtICXoYBWLIYzuLWVCGAacDBWOTLYi LLWpJxUjMkNhPIDuGM2LVFWkV451xgFeAH4SOu3WKaEwPD1ctk6IEcIaPJPlQtiPSoo6DUdrAG7JjBOt nSGzREPfSTZRKnBhK4yoc8MiHuJjKDGSQKwvGD5Sb9 VudCAxDQo+Ac4KKA7fi3QnKCdyISKyTM0hwo0RPUpYDxWhN1MtmVvqHPRmw7QuLDLmQUKGbJ9vMEZ5TR Z0AWG2YJRgNC6nNXSQHTepoyJasC8oURapIKIgRSXhBa6fCh9cQEDoGPK4XyPeOKAFNZ0NLDNyUUNuhO RlGHCtSCAIDR9RHSavJEZ5ZLEojvTriXUhATvzOJ1B YXJlbnQgMzMgMCBSDQo+By1VWD9eu1SaRJibGHJfTG6tzk2SDPoZTxHvV1P5wQYdW2R0ROhcTm4LWFVs RFRrAmArYDVDUCprUN9QII9saxJ9GA6JlHYfHPTqIMXfiUBgAFl8T43wyRTmIEeqRQ2HWDL+Jey+Pg0K OIVcELNxRTWrFxKyZUVXMwFtH6ClZ5DAd9YcT9UfCR 75nHfqpjDmVOftLB3BMR7pHVAlCZBZFR3YdIDbvB9pcvIcDmMjZCMSDuCkW23nmQYwLFQfHIXqPAMcNb 3AVWGhB5UhwmPrzUwaydRvBRSgCUHPJV7VFAaxovKfzFTaxMpkCM96cWfsNP1CUn7JIyZiLR6esf0VqL FxJs5XUEJaRl1UOIIyJTKmEWTcORN5PJPiPyOrOQfe ELJyVFTyPLZ7NTBqULQpVS3MUtHxERXrJbUvQjCuBSUsAPIruv4ECQOtSOLoNAQnCSPkJOKqFRMuHUsf WMNuCIPrKWH2MFOmWBDjIE8AIvMpKPJzPZHcXpchMRHaTDRzaz3QYBVdUGAcDsK6AdCiAEOeWWNqKCpt QVQiKNA9HCYmPFKeQEDmOD1EXrZrIJHePOIeSKfqPN YgGEFmib8VCPTuNQCaAUMcXmGqHMTiNQHiLXooCTJvAKZ6XeK7NXVbIZHaYB7VVyDmKGLaUCA9MpyyQU YnCQWkbw1ZNZBqVECxNWW8URAcRMEzETNwATkrNGNpVCDoERo1EFHhMECrHW7TBySbIFTfUAPbOAXeBP TzNZJqjd5GDQIbRMKiSuC8EXFeZFOlOWMnWBfuAFAv WPTnAeN9QTChNAJaLF5TJjCaOVGgVYZ7HZEhVUEuNXBnav0OCCDjRSBvYWX8JXFnRYOaIKEvAKdbKAQu REW4MhDjWXDaJQKkKK8KMcYaWQOoNZT5TUitNLBbOWQlyb6BKVIiCBMpIJi7AIRyAFNgDODkDQauNSSx CMC3DJRxTLThXCLeXG7MNrZlEQChVRRpLksdFJNfAB Yajo1PYBSoYZSbNgA0XVRwJVBkKYMhFEvcTWJwZXO9Swa2XIPuPNSvOL9RGhRyHGTmQJx5DhmbICXwRW Odiy7XCVKuLDLuAwYwWDXgTWQpXOPbTBcwMSUwMFTuFuGtZQZfENUwAU4GKfKaEVBbJrN1CyGrNGAqXS Gqst0WCUGiQSYeFhYzCKAnHDGvVIByNIugINUqVPLz GdGoYFBzRTVbKZ0ICoRpWXJmItE1IVQaLNGeBHAtcj5NICMoOOGvXRZ6KTOtLWYcCCKoXRakJITnZGI5 WbU7CHYhHHRsGJ9NOnVcSOPeOuO6DrphBWWvDZNfvz9KqVEfaSryca6QFIvKVl2NdFnlASV3URcgZb6u hPUkDRRtEIMHZr3HioTuXAZcNTCYROxbRQGvCXDmUD YvPMT5DzDsA8WkXSFjLXAhYtBoTLUnX3SxQHVpHgH4N7ZeFBL4QFD3QRBhEbVpYCLnRdL4JfRrODCaON E4ZGU+GJ1gKPj+Je9Ll7MzghW4tnWkMWrxRHaeIv8LTXTAT8SPYb== ID Date Data Source [id number] 02/05/2021 09:40:00 PM EDT [facility] Name Value Range Interpretation Code Description Data Giovana rce(s) Supporting Document(s) SARS-CoV-2 RNA 2018 nCoV Real-Time RT-PCR: NOT DETECTED [facility] This lab was ordered by [facility] and reported by [facility]. ID Date Data Source [id number] [facility] NoneRespiratory P CR Panel : PCR ResultsMicroorganism XXX Cult : See Labs Tab for 2019 nCoV RT-PCR resultsHAdV DNA QI ADONAY+non-probe : Not DetectedHCoV 229ERNA Nph QI ADONAY+non-probe : Not DetectedHCoV QVS0MQP Nph QI ADONAY+non-probe : Not KurvznvuVNqUFO22 RNA Nph QI ADOANY+non-probe : Not DqjujdnkOXcVFT35 RNA Upper resp QI ADONAY+probe : Not DetectedhMPV RNA Nph QINAA+non-probe : Not DetectedRV+EV RNA Nph QI ADONAY+non-probe : Not DetectedFLUAV RNA Nph QI ADONAY+ non-probe : Not DetectedFLUBV RNA Nph QI ADONAY+non-probe : Not DetectedHPIV1 RNA NphQINAA+non-probe : Not DetectedHPIV2 RNA Nph QINAA+non-probe : Not DetectedHPVI3 RNA Nph ADONAY+non-probe : Not DetectedHPIV4 RNA Nph Q ADONAY+non-probe : Not DetectedRSV RNA Nph Q ADONAY+non-probe : Not DetectedB pert.PT PrmtNph Q ADONAY+non-probe : Not DetectedC pneum DNA Nph Q ADONAY+non-probe : Not DetectedM pneum DNA Nph Q ADONAY+non-probe : Not DetectedB dlxfyIK796 DNA Nph ADONAY+non-probe : Not Detected Name Value Range Interpretation Code Description Data Giovana rce(s) Supporting Document(s) ID Date Data Source [id number] 02/06/2021 12:14:34 AM [facility] Name Value Range Interpretation Code Description Data Giovana rce(s) Supporting Document(s) Specimen source [Identifier] of Unspecified specimen [facility] SARS-CoV-2 RNA 2019 nCoV Real-Time RT-PCR: NOT DETECTED [facility] Assay Performed [facility] Patients first test for [facility] 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[facility] Patient has symptoms related to [facility] When did you start to experience these symptoms [Date and time] [Phen X] [facility] Patient was hospitalized because of this condition [facility] patient was admitted to ICU for condition [facility] Patient resides in a congregate care setting [facility] status [facility] ID Date Data Source [id number] 02/05/2021 05:45:00 AM [facility] Name Value Range Interpretation Code Description Data Giovana rce(s) Supporting Document(s) Leukocytes [#/volume] in Blood by Automated count 9.5 10*3/uL 4-10 [facility] Erythrocytes [#/volume] in Blood by Automated count 4.65 10*6/uL 4.6- 6.1 [facility] Hemoglobin [Mass/volume] in Blood 13.5 g/dL 13.5-18 [facility] Hematocrit [Volume Fraction] of Blood by Automated count 40.4 % 4 1-53 L [facility] Erythrocyte mean corpuscular volume [Entitic volume] by Auto mated count 86.8 fL 80-96 [facility] Erythrocyte mean corpuscular hemoglobin [Entitic mass] by Automated count 29.0 pg 27-33 [facility] Erythrocyte mean corpuscular hemoglobin concentration [Mass/volume] by Automated count 33.4 g/dL 32.0-[facility] width [Ratio] by Automated count 15.2 % 11.5-14.5 H [facility] Platelets [#/volume] in Blood by Automated count 244 10*3/uL 150-400 [facility] ID Date Data Source [id number] 02/05/2021 06:02:55 AM [facility] Name Value Range Interpretation Code Description Data Giovana rce(s) Supporting Document(s) Bicarbonate [Moles/volume] in Serum 25 mmol/L 22-29 [facility] Chloride [Moles/volume] in Serum or Plasma 103 mmol/L 98-107 [facility] Creatinine [Mass/volume] in Serum or Plasma 0.66 mg/dL 0.70-1.20 L [facility] Glucose [Mass/volume] in Serum or Plasma 114 mg/dL 70-140 [facility] Potassium [Moles/volume] in Serum or Plasma 3.7 mmol/L 3.4-5.1 [facility] Sodium [Moles/volume] in Serum or Plasma 138 mmol/L 136-145 [facility] Urea nitrogen [Mass/volume] in Serum or Plasma 13 mg/dL 6-20 [facility] Anion gap 3 in Serum or Plasma 10 mmol/L 8-15 [facility] Osmolality of Serum or Plasma by calculation 287 mosm/kg 275-300 [facility] Creatinine/Urea nitrogen [Mass Ratio] in Serum or Plasma 20 [facility] Calcium [Mass/volume] in Serum or Plasma 9.0 mg/dL 8.6-10.0 [facility] Glomerular filtration rate/1.73 sq M pre dicted among non-blacks [Volume Rate/Area] in Serum or Plasma by Creatinine-based formula (MDRD) >6 0 [facility] Glomerular filtration rate/1.73 sq M pre dicted among blacks [Volume Rate/Area] in Serum or Plasma by Creatinine-based formula (MDRD) >60 [facility] ID Date Data Source [id number] 02/02/2021 01:13:14 PM EDT [facility] Name Value Range Interpretation Code Description Data Giovana rce(s) Supporting Document(s) Progress Note [facility] [place] XLHPXs7bOdYSDaGt68/XTTueBTCqb4BhCIzbVKk0GCqkRLUbQ6OuDZD6mH3oOCA2DSoABfUqTpNwDtR8 lbm [file] S6UbK7KARrHNCjBNx5TFY7AdB+RU7qXAm+Hs7Ct5UuccY8hwRlDHb0NcI2CAkcPXXYGn3G ID Date Data Source [id number] 02/02/2021 10:47:22 AM EDT [facility] Name Value Range Interpretation Code Description Data Giovana rce(s) Supporting Document(s) Progress Note [facility] LJUYBy0pAwUHRhZd73/SZQkvDUFgl2JyUYehMYy6ALflFLClY6IcFCW6gC0yHJE8UVuCTiGkGmOwAgA3 lbm [file] KtTk7BVON5QDBBAgYbMN0VEQd= ID Date Data Source [id number] 02/02/2021 10:26:55 AM EDT [facility] Name Value Range Interpretation Code Description Data Giovana rce(s) Supporting Document(s) Progress Note [facility] HSPTXz5aVkRWPiTd58/JAQjlCGTzq5DbLHriFVg6MBlqRGDkX3ImLDC5rI8uHZO0IVzYQwUgDfTiGoG4 lbm [file] a6IaojW6hbRzWMqgHGQ9PI4BUQTVN5NCZm== ID Date Data Source [id number] 02/02/2021 08:21:42 AM EDT [facility] Name Value Range Interpretation Code Description Data Giovana rce(s) Supporting Document(s) Progress Note [facility] FTDUCx4nYlUWAyQg13/LGUofUJOgb9BmUFgkVBa1NNllYEIsZ8EnNZL9xK7uZKI3RFlEJcBxFfGdViG8 lbm [file] nrJQNGKnVdDF5QVLa= ID Date Data Source [id number] 02/02/2021 08:21:07 AM EDT [facility] Name Value Range Interpretation Code Description Data Giovana rce(s) Supporting Document(s) Progress Note [facility] [place] NJXAPq2hMrPKDnBj09/HIIbzPOUen6GbIAikOGv7ZIntISZqW9LyRFW1bJ9lMZZ0KSmQZnGuRfTpDuY0 lbm ZnEniAIgLwIFLqArjAExXcLJasJnvdwCCePK5RnXU0UJMaG14zNWMsTAKgN4EkEYX3BtZ+Ze4FCSIilY XpZW4NHqaM8V2nM1bBXn+/tzfEw8STC9AaVLpun0b0PCVfSrdO5bvf6bJvNz9Yxhxih5wxtm46zgZf9o 6pr4taSNZoikxdBxEntj7/PSONENW//4idKHAcRyz+ L/+VTi5x2ft//88wmjbwTFi0DzcFDeNt3BmvC7v/pfvtA+/CHEPE+5Qzuz8tau4NeZnugI0lTBpxkbiwz6 [file] o= ID Date Data Source [id number] 02/01/2021 05:21:44 PM EDT [facility] Name Value Range Interpretation Code Description Data Giovana rce(s) Supporting Document(s) Progress Note [facility] [place] KSKFGj8uWvAOOpOw60/ENHwoQDEoy3YmLYrfZOf5QJjrLGCaN8RrKED1dG9dQQG1LAbDAvIvOmRtGcB5 lbm GcZnvIBpPyRVEcPbaMZqSxXGejIfabtGTzAA0XnOF8RXLtU24wSOHmUAShS5SlIDU6BOV+Mu8QRAAsoO XkZK5WIddA3F8fw5iCSj5+wP2HRQ/iQOPv1t1UHv8v6VUqHcij0W6D7JmlrdT3hVoK8vN6R2+USEp+Jv NGOrdH6urGxF8Y3w9m0Dk0P2qrbUv/+9XsxqHjOGbx b/ZbwBmg6ad61U9n5h16Gv2Zl6gX8NOmBY2aNuX60pxpPpW81TtkCxLMoGseo1biGaIX7IKIEUskMujP A2qd3SH6ekmnl/sWxYiDxy1hLUvPJ2QZC3z+3Ax/XVpB53VbJ3rJCnlP5720ck5KmR908ffSldLI6uG9 ftd94joOePm4S06m+rEXih+llxbZj6I3PlYrWtnsep tLu+QXF4f2Ma2x7rRKbzfqWxNfW9dcuY3fanYnzzOdo+C3x0NS38rFg+iwafOjv77zqNOS02ruGcawMr Gh+JVztZS2CB2ZH3I9mkMlVhhansxvly/u9A0Q6C+Kqa0m+HCxV5k7b0KgLO75XD/NniaroYNoOfRRdm 7fkQ0sBrOayLs7H+++zccYfzdIF57BK8dtSh85OfQz v2oKw/Fazal+5UPhP81yMUfCbuOPTB5oSySJ6A1TWbTFmjOPa+KKIS13DqNnzPXkqN6znOPHqbPMbre+Tc [file] 1oMJKLCb8+IZnqbBExwPjnNFGEYpgbOuWJYjUxZT7RVKc= ID Date Data Source [id number] 02/01/2021 01:54:37 PM EDT [facility] Name Value Range Interpretation Code Description Data Giovana rce(s) Supporting Document(s) Consultation [facility] ATRRGy8lHlKKIwZr52/IFIyzZHQgz8NeGKooYFh8IEwwDHQgZ1TjVSM9qX7xBLG1SBrZTqQaQlReUqG4 lbm [file] UlVGC9CHFaYvJuDaIzOIMuOsunCu3fKESZYs9+UMvbsPRyhMxmOBKHKna1DLhVLuYuJM9SONq= ID Date Data Source [id number] 01/31/2021 04:29:59 PM EDT [facility] Name Value Range Interpretation Code Description Data Giovana rce(s) Supporting Document(s) Consultation [facility] ECAGPl6uRpJIGxMu04/TXFflEGWts0OcMFtaPRe5THnlGKQhW5EaXIM6qF3hKRB7ONhNWmJjGtOrXhE9 lbm [file] MhQBuiCqNrVtG0VpLpLD4ZPx4KJyO0PMC5eJQeAt8MWlIqTp2DPALTG7YRTp== ID Date Data Source [id number] 01/31/2021 03:54:26 PM EDT [facility] Name Value Range Interpretation Code Description Data Giovana rce(s) Supporting Document(s) Progress Note [facility] [place] VEQKNo8qJwDUXoAg61/YJHhdLHXuv7MkOYgnOHo4OHtpIVKxK9LqONJ2dS9gEHA6XYoEHzTqMtOqKcV3 lbm [file] Y5ZoZdB3RyMmDW0COi1EOnF4OXQ8uYHfOo7ZGjrgUQ0AHWZFW0XSGm== ID Date Data Source [id number] 01/31/2021 02:11:55 PM EDT [facility] Name Value Range Interpretation Code Description Data Giovana rce(s) Supporting Document(s) Progress Note [facility] BCIYEe7wYxVEJpJm41/PCNrrCYGyg2OyTJirEZt8GKluXROsP0DiNKZ5mP6cLRE6ZGyNRcUhQeLcXcE4 lbm [file] D6D2Y5AMGiVHe5ItDjMSc+UA7nKEj+Oe3Rq7WawfE4rbRnORrzSVdpWL9XCPYPB6QLPs== ID Date Data Source [id number] 01/31/2021 01:52:52 PM EDT [facility] Name Value Range Interpretation Code Description Data Giovana rce(s) Supporting Document(s) Operative Note [facility] KDWZBu1yStYDWyNb44/QEUlzXDCbr9KrOAdjJNe9CLraKNBlF9GyWTX5cL5eVVK5MWsLFxKrJySjIzF1 lbm [file] KeWYw6JJYwGsfyWps2DSZ+FA9hFBz+Nr5Kt2MegqL9rhXaSOhsNwS0ES5QOFHFW3POJg== ID Date Data Source [id number] 01/31/2021 09:51:37 AM EDT [facility] Name Value Range Interpretation Code Description Data Giovana rce(s) Supporting Document(s) Progress Note [facility] VNDFPf4fVnCPPjEl92/MEZbcCGNat6ItZSgqNOu6PBqnBODwN6UlZJZ4sD0oZHN0VDoEKqEsRyIvJqJ9 lbm [file] NSJTUlNzVYpaUKwpFOLUEl7T ID Date Data Source [id number] 01/31/2021 08:23:43 AM EDT [facility] Name Value Range Interpretation Code Description Data Giovana rce(s) Supporting Document(s) Progress Note [facility] WNZJXl3xSoTCRvUm87/PSFkzHPBew1AgLOxsMHu3ZBceIETrH9QmHHQ8gV6aQXR5DJoIDvQeWpUsMjY3 lbm [file] koKmBtBD2NDi3IOuO7INP8aYMbZm8FIFCmEt9KCMJRF4OYAr== ID Date Data Source [id number] 01/31/2021 06:10:05 AM EDT [facility] Name Value Range Interpretation Code Description Data Giovana rce(s) Supporting Document(s) Progress Note [facility] FEOUVk9aZrIYHiWf23/UKZhdDKLgi3StADwhVZc1CGhrDPDiO3MbYPI8nO8wEFF6WJzLZuKcQdWqCoA4 lbm [file] ID Date Data Source [id number] 01/30/2021 09:11:00 PM EDT [facility] Name Value Range Interpretation Code Description Data Giovana rce(s) Supporting Document(s) SARS-CoV-2 RNA 2019 nCoV Real-Time RT-PCR: NOT DETECTED [facility] This lab was ordered by [facility] and reported by [facility]. ID Date Data Source [id number] 01/30/2021 10:22:07 PM EDT [facility] Service Cmnt XXX-Imp : NoneRespiratory P CR Panel : PCR ResultsMicroorganism XXX Cult : See Labs Tab for 2019 nCoV RT-PCR resultsHAdV DNA QI ADONAY+non-probe : Not DetectedHCoV 229ERNA Nph QI ADONAY+non-probe : Not DetectedHCoV MRU8WFN Nph QI ADONAY+non-probe : Not JwecdxolKQzKMX21 RNA Nph QI ADONAY+non-probe : Not ZkrshqafNSqCUB92 RNA Upper resp QI ADONAY+probe : Not DetectedhMPV RNA Nph QINAA+non-probe : Not DetectedRV+EV RNA Nph QI ADONAY+non-probe : Not DetectedFLUAV RNA Nph QI ADONAY+ non-probe : Not DetectedFLUBV RNA Nph QI ADONAY+non-probe : Not DetectedHPIV1 RNA NphQINAA+non-probe : Not DetectedHPIV2 RNA Nph QINAA+non-probe : Not DetectedHPVI3 RNA Nph ADONAY+non-probe : Not DetectedHPIV4 RNA Nph Q ADONAY+non- probe : Not DetectedRSV RNA Nph Q ADONAY+non-probe : Not DetectedB pert.PT PrmtNph Q ADONAY+non-probe : Not DetectedC pneum DNA Nph Q ADONAY+non-probe : Not DetectedM pneum DNA Nph Q ADONAY+non-probe : Not DetectedB osflcDO207 DNA Nph ADONAY+non-probe : Not Detected Name Value Range Interpretation Code Description Data Giovana rce(s) Supporting Document(s) ID Date Data Source [id number] 01/30/2021 10:20:35 PM EDT [facility] Name Value Range Interpretation Code Description Data Giovana rce(s) Supporting Document(s) Specimen source [Identifier] of Unspecified specimen [facility] SARS-CoV-2 RNA 2019 nCoV Real-Time RT-PCR: NOT DETECTED [facility] Assay Performed [facility] Patients first test for [facility] 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[facility] Patient has symptoms related to [facility] When did you start to experience these symptoms [Date and time] [Phen X] [facility] Patient was hospitalized because of this condition [facility] patient was admitted to ICU for [facility] Patient resides in a congregate care setting [facility] status [facility] ID Date Data Source [id number] 01/30/2021 05:51:29 PM EDT [facility] Name Value Range Interpretation Code Description Data Giovana rce(s) Supporting Document(s) Progress Note [facility] JSCMNj4vNvGGIvVa59/BHRqyJLCfd2KaGVclNGx9UPuuSIHzU4KfFIJ4dI6gWAQ8PGlIGiDlFoIkCeX7 lbm [file] 5Ex8DawcG9xtQwDDtyYGJ2Aw6TDKXHX2CACa== ID Date Data Source [id number] 01/30/2021 04:11:15 PM EDT [facility] Name Value Range Interpretation Code Description Data Giovana rce(s) Supporting Document(s) Progress Note [facility] ZWRISb8oSnIKAgEw53/GHOddFHJmi8XjOBxlKTq8FYcsIIBzT3RjNZM5eD6jQAV7PGnXAqKeOwIgYdJ0 lbm [file] ReUpMqd2PfO+EH5nHMy+Rm9Ii9LcurB4mzJeJWb9JxR8ANcmXYPIWb7S ID Date Data Source [id number] 01/30/2021 01:10:26 PM EDT [facility] Name Value Range Interpretation Code Description Data Giovana [facility](s) Supporting Document(s) History and Physical [facility] MXEPUs6hYdBJQnYz34/PVOlyUYFxs9SnLUzzLRu7ZJysGFQaL7UmQWP7wX9bLNB4BWlVHrKuHjXqZzG7 lbm [file] rqe+oWdPlrslnudhZDDmFQsvWyzxwlhtuQX/BCpaFP IriAhZg3EbYQGTLc5R8bK/QQYKsgDArreCIlq1wlBz8tO/YgaDVoCkvrIBQvtcrUHFatCGkSCehwJWqv FXbynkPIJuoempzurJMuM3Iu2gekzQjVOJzr82yULP4Dc1CbZg1XIflw+YePDkjDsJwF0TLRrvsSgrTS Hr/vKqDVY24AC6pi5jNiijCP+HOME CARE GIVER/vkn/rqohmwuN2y 5XKOwuwn85aw1nXwHa3DC+LALO/FoiKNBOM6aakkYlVNgNoIMDplkcdVBqsuXV5CgFcydngraUipbv213Z [file] JHUcWgCXqwSCqzBANORa8I ID Date Data Source [id number] 01/30/2021 05:52:45 AM EDT [facility] Name Value Range Interpretation Code Description Data Giovana rce(s) Supporting Document(s) Progress Note [facility] YQJGFb6zVoOBOiRt94/MHJbjVRUvz4KeNWviUCh1UWwzVPCpT1UgWXH5uD3iPEB0TXlOOiVaJjMnBvA2 lbm GnRvdEJrHhMOJtHvkTAiYsRJfoIzzexWKwOD2JdDO9PIHrJ48zDNXqUAEkQ3EqHPUwONd+Aw9OCINmpA RsGO8CSkiF2M6igvk7Ih0bkT5hdBGZ2sWpu2n2HWuXnjrb2qRimDG5mtv2BWJTss8ca8Vk0TUp468GGD fTq2yPAhwc9v790TIueJXz4obIppPg8c//Fyfb0Tds U/y/+Gec+o1ojoqyh0doEoRqhl4/qVUiH/cf5lfAG/k/ldf+4IdT5/Cl6+StOafj/ES9z9JJa4+6kXM6 2ns3/MQ2Jy1vbujs+AT2vDjflOd4btjGxuv0COFX817tOr7nBcm8s67klh9LlSv4R5BrqELOtBiPllQ0 J0ReS11wu5nPvEL5B/Vp4DEezc6IMeef4uxVSUMr6x hVwgA7jceRGjodw/95zc5i1QhncoVW4enDfu0Qjoiv6bcVP9X+JT/lXLF7u30uL0Qr6wEfNvL6mDjfkc tKI2pHmlcmRDfh/ItWSuRFdWNudDJP8C4iKrXpkjAYT+FF3+4MPGQVzXFQ80b06XWjciZR1+G+z/6wx8 d95KBykf8gGZdcxuzXGcSXwlTg977+sDeUuumaS/6h f+lvtlXwn94b/bJqCYVDGfX1URdedaEPKl44ztcUmpJ3Z9+KU41q8YpygBKJ6iWwAf8QeTyIa8DLPTSb egzVTb7RbUcEFmhBL65M6i2bBwbx2MeImR0WOg+vii/x84dBhFyCWoiJiovH8Pq1LG676tZttExmd92m osWInVdLqOI+BH9gT9jvFy3x1dz6a311Vl/DEON/ejxN [file] Licensing Director+1s/Ed41aV52+A8dSo4gsiett0fyqXpjJyoO3jUj2ncJsp9BDrZNpRD6PGpWD2S83WcbOiSkXxcw6a [file] gFf2Fbs3vIDF2ZFVP2BBMU9K2HwC7IuGIGLBzA+finishing inspector qBkGeSTHo/NYDh5mG3B61wJJgTLjeTqSpFD76GHMDl8HUG0izoDbYy+oc+avlxKs0LQwZWskAGlSbMDD 7XxUD493FcFGc9fR1ZnX9Pgh9EEtNzLqocJiC/GCH+kWImELDwdOfwHfUEIQ7Zg4lNpNsO4rqjGEpNX+ pwOgAHJFdBpoVX4EpkHQnwOUpm+9RES+KoskUkogr3 vkdsh7TIU8xkn52KnNi0kTxj1Kp/qm1pvU5tvt/NJmFpKoQ6p4Ov5e+YXjoGRjBexnIbekGpSPeovVNQ J9i3PrepXjMEhWbcMvDiuTMGYNLGfmJi/k5wYxpeoRGDEj02z0kqDmV5jeIVDfYzLoCL1wD/m3sSA9p+ K/e7aQodYs6Kd7qRBcXwzMTBs+qfww8PUK+ekt2UZR TL7CgRktWkElSNgwC2HqqJ/vLnplTpu/eXqIjCnNswLyKZOKSMQsfBBJqATvxhZESq+squunQBW0/Lacy [file] SfLTJ2Mcr1HtFnWhpdZZ7nVBSRQb7+BSnsdVPagFtkYOTAJnX2TSJtWYjkYCTLPa2K ID Date Data Source [id number] 01/27/2021 11:22:47 AM EDT [facility] Name Value Range Interpretation Code Description Data Giovana rce(s) Supporting Document(s) Progress Note [facility] [place] JBTBKm8lRhACIsUr28/TTVpaTAAqe8ClDGekBNk0TBwzVLOoB8UaZIL7jR3qUOL6ZJvEHwPiRtWoLhUb lbm [file] i0LKOhJcXcBKW+VF8zFXc+Yq7Jr6BbtpD8blSmUBpdPTE2PA4GHCPWB1XCEj== ID Date Data Source [id number] 01/27/2021 11:22:00 AM EDT [facility] Name Value Range Interpretation Code Description Data Giovana rce(s) Supporting Document(s) SARS-CoV-2 RNA 2019 nCoV Real-Time RT-PCR: NOT DETECTED [facility] This lab was ordered by [facility] and reported by [facility]. 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[facility] Patient has symptoms related to [facility] When did you start to experience these symptoms [Date and time] [Phen X] [facility] Patient was hospitalized because of this condition [facility] patient was admitted to ICU for [facility] Patient resides in a congregate care setting [facility] status [facility] ID Date Data Source [id number] 01/20/2021 09:01:00 AM EDT [facility] Name Value Range Interpretation Code Description Data Giovana rce(s) Supporting Document(s) SARS-CoV-2 RNA Resp Ql ADONAY+probe NOT DETECTED [facility] This lab was ordered by [facility] and reported by [facility]. ID Date Data Source [id number] 01/18/2021 12:14:10 PM EDT [facility] XR ANKLE 2 VIEWS [id number] RESULTInterp reted by:FALLON Lawson FOOT AND ANKLECLINICAL STATEMENT: Pain. Initial encounter.TECHNIQUE: 3 views of the right foot. 2 views of the right ankle.COMPARISON: None.FINDINGS: No acute fracture or dislocation is identified. 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 Otherwise, the joint spaces are preserved and the articular margins are smooth.The visualized soft tissues are within normal limits.IMPRESSION:No acute fracture or dislocation. 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 Initial encounter.TECHNIQUE: 3 views of the right foot. 2 views of the right ankle.COMPARISON: None.FINDINGS: No acute fracture or dislocation is identified. 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 Otherwise, the joint spaces are preserved and the articular margins are smooth.The visualized soft tissues are within normal limits.IMPRESSION:No acute fracture or dislocation. 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 [id number] [facility] [file] [id number] ID Date Data Source [id number] 12/12/2020 03:03:00 PM EDT [facility] ([facility], ) Name Value Range Interpretation Code Description Data Giovana rce(s) Supporting Document(s) White Blood Count 13.4 10 4.0-10.0 Above high normal [facility] ([facility], ) Red Blood Count 5.89 10 4.30-6.10 Normal (applies to non-numeric results) [facility] ([facility], ) Hemoglobin 16.9 g/dL 13.5-17.5 Normal (applies to non-numeric resul ts) [facility] ([facility]) Hematocrit 53.3 % 42.0-52.0 Above high normal [facility] ([facility]) Mean Corpuscular Hemoglobin 28.7 pg 27.0-33.0 Norm al (applies to non-numeric results) [facility] ([facility]) Mean Corpuscular Volume 90.5 fl 80.0-96.0 Normal ( applies to non-numeric results) [facility] ([facility]) Mean Corpuscular HGB Conc 31.7 g/dL 32.0-36.5 Below low normal [facility] ([facility]) Platelet Count, Automated 255 10 150-450 Normal (applies to non-numeric results) [facility] ([facility]) Neutrophils % 78.0 % 36.0-66.0 Above high normal [facility] ([facility]) Red Cell Distribution Width 13.8 % 11.5-14.5 Norm al (applies to non-numeric results) [facility] Lymph % 13.3 % 24.0-44.0 Below low normal [facility] ( [facility]) Eos % 1.4 % 0.0-3.0 Normal (applies to non-numeric resul ts) [facility] ([facility]) [place] % 6.6 % 2.0-8.0 Normal (applies to non-numeric resul ts) [facility] ([facility]) Baso % 0.3 % 0.0-1.0 Normal (applies to non-numeric resul ts) [facility] ([facility]) Immature Granulocyte % 0.4 % 0-3.0 Normal (applies to non-n umeric results) [facility]) Nucleated Red Blood Cell % 0.0 % 0-0 Normal (applies to n on-numeric results) [facility]) Lymph # 1.8 10 1.5-5.0 Normal (applies to non-numeric resul ts) [facility]) Neutrophils # 10.5 10 1.5-8.5 Above high normal [facility] ([facility]) [place] # 0.9 10 0.0-0.8 Above high normal [facility] ([facility]) Eos # 0.2 10 0.0-0.5 Normal (applies to non-numeric resul ts) [facility] ([facility]) Baso # 0.0 10 0.0-0.2 Normal (applies to non-numeric resul ts) [facility]) ID Date Data Source [id number] 12/12/2020 03:03:00 PM EDT [facility] ([facility]) Name Value Range Interpretation Code Description Data Giovana rce(s) Supporting Document(s) Class Description Laboratory test result Normal (applies to non-numeric results) [facility] ([facility]) <content>.</content>
<content>Levels of Specific IgE Class Description of Class</content>
<content> ----- </content>
<content>< 0.10 0 Negative</content>
<content>0.10 - 0.31 0/I Equivocal/Low</content>
<content>0.32 - 0.55 I Low</content>
<content>0.56 - 1.40 II Moderate</content>
<content>1.41 - 3.90 III High</content>
<content>3.91 - 19.00 IV Very High</content>
<content>19.01 - 100.00 V Very High</content>
<content>>100.00 Very High</content>
<content></content> Z980-DnE D pteronyssinus 0.64 kU/L Abnormal (applie s to non-numeric results) [facility]) B702-JeI D farinae Mite 0.41 kU/L Abnormal (applies to no n-numeric results) [facility], ) H267-MgL Dog Dander Laboratory test result Milagros l (applies to non-numeric results) [facility] ([facility], ) H237-WoB Cat Epith/Dander Laboratory test result Normal (applies to non- numeric results) [facility] ([facility]) J734-EwK Bermuda Grass 0.13 kU/L Abnormal (applies to non -numeric results) [facility] ([facility], ) J054-DtC [place] Laboratory test result Normal (applies to non- numeric results) [facility] ([facility]) N001-DyY Cockroach, Guyanese Laboratory test result Normal (applies to non- numeric results) [facility] ([facility]) J055-DgX Bahia Grass Laboratory test result Norm al (applies to non-numeric results) [facility] ([facility], ) R526-HyA Penicillium chrysogen Laboratory test result Normal (applies to non- numeric results) [facility]) M003 IgE Aspergillus fumigatu Laboratory test result Normal (applies to non- numeric results) [facility]) M002 IgE Cladosporium herbaru Laboratory test result Normal (applies to non- numeric results) [facility] ([facility]) L442-SvO Alternaria alternata 0.48 kU/L Ab normal (applies to non-numeric results) [facility] ([facility]) N552-XbZ Mucor racemosus Laboratory test result Normal (applies to non-numeric results) [facility]) Y737-HwW Stemphylium Herbarum Laboratory test result Normal (applies to non- numeric results) [facility] ([facility]) D317-FiJ Common Silver Birch Laboratory test result Normal (applies to non- numeric results) [facility] ([facility]) B426-DgN Bowie, White Laboratory test result Milagros l (applies to non-numeric results) [facility], ) P977-QyK Elm, Guyanese Laboratory test result No rmal (applies to non-numeric results) [facility] ([facility], ) W356-UoD Lakhwinder, White Laboratory test result Milagros l (applies to non-numeric results) [facility] ([facility]) Q076-EvO Maple/Columbia Laboratory test result Normal (applies to non-numeric results) [facility] ([facility]) K629-AsT Hazelnut Tree Laboratory test result No rmal (applies to non-numeric results) [facility] ([facility]) Q217-MuA White Severy Laboratory test result N ormal (applies to non-numeric results) [facility] ([facility]) N620-SjP [place], White Laboratory test result N ormal (applies to non-numeric results) [facility] ([facility]) S243-LsU Ragweed, Short Laboratory test result N ormal (applies to non-numeric results) [facility]) I871-XuH [place], Mountain Laboratory test result Normal (applies to non-numeric results) [facility] ([facility]) I494-MkK Mugwort Laboratory test result Normal ( applies to non-numeric results) [facility] ([facility]) U149-TfP Plantain, Serbian Laboratory test result Normal (applies to non- numeric results) [facility]) Y645-DzF Pigweed, Rough Laboratory test result N ormal (applies to non-numeric results) [facility]) Q940-PtX Sheep Mesick Laboratory test result Nor mal (applies to non-numeric results) [facility]) T784-HrL Nettle Laboratory test result Normal (a pplies to non-numeric results) [facility] ([facility]) Performed at: [address] [id number] Data Integration Developer: Adam Barclay MD, Phone: [phone] ID Date Data Source [id number] 12/12/2020 03:03:00 PM EDT [facility]) Name Value Range Interpretation Code Description Data Giovana rce(s) Supporting Document(s) IgE [Mass/volume] in Serum 297.0 IU/ml Above high normal [facility] ([facility]) ID Date Data Source [id number] 11/28/2020 02:43:42 PM EDT [facility] Name Value Range Interpretation Code Description Data Giovana rce(s) Supporting Document(s) Progress Note [facility] [id number] lbm [file] [id number] ID Date Data Source [id number] 11/29/2020 01:16:35 PM EDT [facility] Service Cmnt XXX-Imp : NoneMicroorganism XXX Cult : 40,000 col/mlIndigenous microorganisms. Name Value Range Interpretation Code Description Data Giovana rce(s) Supporting Document(s) ID Date Data Source [id number] [facility] Value Range Interpretation Code Description Data Giovana rce(s) Supporting Document(s) Color of Urine [facility] Clarity of Urine [facility] Specific gravity of Urine by Refractometry automated 1.009 1.003 -1.030 [facility] pH of Urine by Automated test strip 6.0 5.0-8.0 [facility] Protein [Mass/volume] in Urine by Automated test strip Neg [facility] Glucose [Mass/volume] in Urine by Automated test strip Neg [facility] Ketones [Mass/volume] in Urine by Automated test strip Neg [facility] Bilirubin.total [Presence] in Urine by Automated test strip Negative [facility] Hemoglobin [Presence] in Urine by Automated test strip Neg [facility] Leukocyte esterase [Presence] in Urine by Automated test strip Negative [facility] Nitrite [Presence] in Urine by Automated test strip Negati [facility] Leukocytes [#/area] in Urine sediment by Automated count 0 /HPF 0 -5 [facility] Erythrocytes [#/area] in Urine sediment by Automated count 0 /HPF 0-3 [facility] ID Date Data Source [id number] 11/02/2020 09:55:00 AM EDT [facility] Name Value Range Interpretation Code Description Data Giovana rce(s) Supporting Document(s) SARS-CoV-2 (COVID-19) RNA [Presence] in Respiratory specimen by ADONAY with probe detection Not Detected [facility] This lab was ordered by [facility] and reported by [facility]. ID Date Data Source [id number] 10/25/2020 08:49:00 AM EDT [facility] Patient: NICK TRUJILLO R eport - Physicians/Mid Levels HospitalVisitID: [id number] [place] [address] [phone], MRegistration Date/Time: 10/24/2020 16:38 Weight:174.1 kg (S). Height/Length:71 inches (S). BMI:53.6 PAST HISTORYProblems:Epilepsy [Active].Depression [Active].Morbid obesity [Chronic].Hernia [Chronic].Developmental Delay.Asthma.Anxiety Reaction. Additional Surgeries:Appendectomy. (Unsure)Gallbladder Surgery. (Unsure)Hernia Repair.Hypospadias Repair. (Unsure)Tonsillectomy. (Unsure). Medications:Montelukast Sodium Oral, last dose today.Mirtazapine Oral, last dose today.Topamax Oral (Tablet 200 mg) 1 tablet, last dose today.Carafate Oral (Tablet 1 gm) 1 tablet, last dose today.HYDROcodone-Acetaminophen Oral (T ablet 5-325 mg) 1 tablet, last dose prn today.Doxycycline Monohydrate Oral (Capsule 100 mg), last dose today.Desvenlafaxine ER Oral (Tablet Extended Release 24 Hour 50 mg) 1 tablet, last dose today. Allergies:Aripiprazole. (unsure)Codeine.(rash)Dilantin.(rash)Naproxen.(rash). FAMILY HISTORYNegative. No significant family medical history. (Electronically signed by Binta Huber 10/25/2020 08:33) Name Value Range Interpretation Code Description Data Giovana rce(s) Supporting Document(s) ID Date Data Source [id number] 10/24/2020 07:15:00 PM EDT [facility] DATE OF EXAMINATION: 10/24/2020 18:02 EDT ABD/PEL NO CONTRAST HISTORY: History of hernias TECHNIQUE: This CT exam was performed using the following dose reduction techniques:automated exposure control, adjustment of mA and/or kV according to thepatient's size, and use of iterative reconstruction technique. Standard contiguous axial spiral imaging was obtained from the dome of thediaphragms through the symphysis pubis without oral contrast and withoutintravenous contrast administration and with coronal reformatting. FINDINGS: Lower thorax: The visualized lungs are clear. ABDOMEN: Liver: Normal.Gallbladder and bile ducts: Normal.Pancreas: Normal.Spleen: Normal.Adrenals: NormalKidneys and ureters: Normal.Stomach and bowel: Normal.Appendix: Surgical clips are present in the right lower quadrant. The appendixis not seen.A 6.7 cm fat-containing umbilical hernia is present. A second 2.4 cmfat-containing ventral abdominal hernia is present to the left of midlineinferior to the umbilical hernia. PELVIS: Bladder: Normal.Reproductive: Normal.Two small fat-containing inguinal hernias are present. Spine: There is no fracture or subluxation. IMPRESSION: 1. There are 2 fat-containing ventral abdominal hernias as described above.2. Small bilateral fat-containing inguinal hernias. Electronically signed in PS360 by: Elbert Whitehead M.D. 10/24/2020 19:09 EDT Name Value Range Interpretation Code Description Data Giovana rce(s) Supporting Document(s) ID Date Data Source [id number] 10/24/2020 05:40:00 PM EDT [facility] T[facility] [id number] Name Value Range Interpretation Code Description Data Giovana rce(s) Supporting Document(s) MAGNESIUM 2.1 mg/dL 1.8-2.4 [facility] ID Date Data Source [id number] 10/24/2020 05:40:00 PM EDT [facility] [id number] Name Value Range Interpretation Code Description Data Giovana rce(s) Supporting Document(s) LIPASE 94 U/L 73-393 [facility] ID Date Data Source [id number] 10/24/2020 05:40:00 PM EDT [facility] TSYSORDER [id number] Name Value Range Interpretation Code Description Data Giovana rce(s) Supporting Document(s) GLUCOSE 94 mg/dL 74-106 [facility] BLOOD UREA NITROGEN 10 mg/dL 7-18 [facility] CREATININE 0.93 mg/dL 0.7-1.3 [facility] SODIUM 142 mmol/L 136-145 [facility] POTASSIUM 3.5 mmol/L 3.5-5.1 [facility] CHLORIDE 104 mmol/L 98-107 [facility] CO2 27 mmol/L 21-32 [facility] CALCIUM 9.0 mg/dL 8.5-10.1 [facility] ANION GAP 11.0 mmol/L 5-12 [facility] GLOMERULAR FILTRATION RATE >90 mL/min [facility] GFR IS CALCULATED IN mL/min/1.73m2 MILAGROS L FUNCTION: >90MILDLY DECREASED: 60-89MILDY TO MODERATELY DECREASED: 45-59 MODERATELY TO SEVERELY DECREASED: 30-44SEVERELY DECREASED: 15-29RENAL FAILURE: <15 AST 24 U/L 15-37 [facility] ALT 57 U/L 12-78 [facility] ALKALINE PHOSPHATASE 85 U/L 46-116 [facility] pital TOTAL BILIRUBIN 0.4 mg/dL 0.2-1.0 [facility] TOTAL PROTEIN 8.0 g/dl 6.4-8.2 [facility] ALBUMIN 3.6 gm/dL 3.4-5.0 [facility] ID Date Data Source [id number] 10/24/2020 05:34:00 PM EDT [facility] TSYSORDER [id number] Name Value Range Interpretation Code Description Data Giovana rce(s) Supporting Document(s) PARTIAL THROMBOPLASTIN TIME 26.5 SECONDS 21.2-27.3 [facility] ID Date Data Source [id number] 10/24/2020 05:34:00 PM EDT [facility] TSYSORDER [id number] Name Value Range Interpretation Code Description Data Giovana rce(s) Supporting Document(s) PROTHROMBIN TIME (PATIENT) 10.5 SECONDS 9.1-11.6 [facility] INR 1.01 0.87-1.06 [facility] ID Date Data Source [id number] 10/24/2020 05:17:00 PM EDT [facility] TSYSORDER [id number] Name Value Range Interpretation Code Description Data Giovana rce(s) Supporting Document(s) WHITE BLOOD COUNT 9.6 K/mm3 4.0-10.0 [facility] RED BLOOD COUNT 5.37 M/mm3 4.50-6.00 [facility] HEMOGLOBIN 15.9 gm/dL 14.0-18.0 [facility] HEMATOCRIT 46.9 % 42.0-54.0 [facility] MEAN CELL VOLUME 87.3 fl 80-96 [facility] MEAN CORPUSCULAR HEMOGLOBIN 29.6 pg 27.0-31.0 [facility] MEAN CORPUSCULAR HGB CONC 33.9 g/dl 32.0-36.0 [facility] RED CELL DISTRIBUTION WIDTH 13.2 % 10.0-14.5 [facility] PLATELET COUNT 220 K/mm3 172-450 [facility] MEAN PLATELET VOLUME 9.1 fl 9.0-13.0 [facility] pital GRAN % 71.2 % 50-80.0 [facility] IG% 0.1 % 0.0-0.2 [facility] LYMPH % 18.7 % 25.0-50.0 L [facility] MONO % 6.5 % 2.0-10.0 [facility] EOS % 3.3 % 0-5.0 [facility] BASO % 0.2 % 0.0-2.0 [facility] GRAN # 6.9 K/mm3 2.0-8.00 [facility] IG# 0.0 K/mm3 0.0-0.2 [facility] LYMPH # 1.8 K/mm3 1.0-5.0 [facility] MONO # 0.6 K/mm3 0.10-1.20 [facility] EOS # 0.3 K/mm3 0.0-0.5 [facility] BASO # 0.0 K/mm3 0.0-0.2 [facility] ID Date Data Source [id number] 10/24/2020 05:19:00 PM EDT [facility] TSYSORDER [id number] Name Value Range Interpretation Code Description Data Giovana rce(s) Supporting Document(s) URINE COLOR. [facility] URINE APPEARANCE CLEAR [facility] URINE GLUCOSE (UA) NEGATIVE mg/dL NEGATIVE [facility] URINE BILIRUBIN NEGATIVE NEGATIVE [facility] URINE KETONE NEGATIVE mg/dL NEGATIVE [facility] SPECIFIC GRAVITY,URINE 1.010 1.005-1.030 [facility] URINE BLOOD NEGATIVE NEGATIVE [facility] PH,URINE 6.0 5.0-9.0 [facility] URINE PROTEIN NEGATIVE mg/dL NEGATIVE [facility] URINE UROBILINOGEN NORMAL(0.2-1) mg/dL 0-1 [facility] URINE NITRATE NEGATIVE NEGATIVE [facility] URINE LEUKOCYTE ESTERASE NEGATIVE NEGATIVE [facility] ID Date Data Source [id number] 10/12/2020 09:20:00 AM EDT [facility] ([facility]) Name Value Range Interpretation Code Description Data Giovana rce(s) Supporting Document(s) Lipoprotein lipase [Enzymatic activity/volume] in Serum or Plasma 149 [facility] ([facility]) ID Date Data Source [id number] 10/12/2020 09:20:00 AM EDT [facility] ([facility]) Name Value Range Interpretation Code Description Data Giovana rce(s) Supporting Document(s) White Blood Count 10 4.0-10.0 [facility] ([facility]) Red Blood Count 5.87 4.30-6.10 [facility] ([facility]) Hematocrit 52.5 [facility] ([facility]) Hemoglobin 17.1 [facility] ([facility]) Platelets 224 150-450 [facility] ID Date Data Source [id number] 10/12/2020 09:20:00 AM EDT [facility] ([facility]) Name Value Range Interpretation Code Description Data Giovana rce(s) Supporting Document(s) Troponin Laboratory test result [facility] ([facility]) ID Date Data Source [id number] 10/12/2020 09:20:00 AM EDT [facility] ([facility]) Name Value Range Interpretation Code Description Data Giovana rce(s) Supporting Document(s) Creatine kinase [Enzymatic activity/volume] in Serum or Plasma 131 [facility] ([facility]) CPK-MB 1.1 [facility] ID Date Data Source [id number] 10/12/2020 09:20:00 AM EDT [facility] ([facility] Name Value Range Interpretation Code Description Data Giovana rce(s) Supporting Document(s) Aspartate aminotransferase [Enzymatic activity/volume] in Se rum or Plasma 45 7-37 [facility] ([facility]) Alanine aminotransferase [Enzymatic activity/volume] i n Serum or Plasma 62 30-65 12-78 [facility] Alk Phos 101 50-136 [facility] Albumin 3.9 3.2-5.2 [facility] Total Protein 8.4 6.4-8.2 [facility] ([facility] Total Bilirubin 0.4 0.0-1.0 [facility] A/G Ratio 0.9 1.00-1.93 [facility] ID Date Data Source [id number] 10/07/2020 09:14:00 AM EST [facility] ([facility] Name Value Range Interpretation Code Description Data Giovana rce(s) Supporting Document(s) Albumin [Mass/volume] in Serum or Plasma 3.5 [facility] ([facility]) Alanine aminotransferase [Enzymatic activity/volume] in Serum or Pl asma 62 [facility] ([facility]) Calcium [Mass/volume] in Serum or Plasma 8.6 [facility] ([facility]) Carbon dioxide, total [Moles/volume] in Serum or Plasma 25 [facility] ([facility] Chloride [Moles/volume] in Serum or Plasma 113 [facility]) Potassium [Moles/volume] in Serum or Plasma 4.0 [facility] ([facility]) Alkaline phosphatase [Enzymatic activity/volume] in Serum or Plasma 8 4 [facility] ([facility]) Sodium 144 [facility] Protein [Mass/volume] in Serum or Plasma 7.1 [facility] ([facility]) Aspartate aminotransferase [Enzymatic activity/volume] in Serum or Plasma 23 [facility] ([facility] Glucose 95 70-100 [facility] Urea nitrogen [Mass/volume] in Serum or Plasma 9 [facility] ([facility]) Creatinine For GFR 0.85 [facility] ([facility]) ID Date Data Source [id number] 10/05/2020 09:45:00 AM EST [facility] Name Value Range Interpretation Code Description Data Giovana rce(s) Supporting Document(s) SARS coronavirus 2 RNA Not Detected [facility] This lab was ordered by [facility] and reported by [facility]. ID Date Data Source [id number] 08/09/2020 02:33:00 PM EST [facility] Name Value Range Interpretation Code Description Data Giovana rce(s) Supporting Document(s) SARS-CoV-2 (COVID 19) NEGATIVE - SARS-CoV-2 (COVID19) [facility] This lab was ordered by [facility] a nd reported by [facility]. ID Date Data Source [id number] 07/31/2020 05:40:00 PM EST [facility] Name Value Range Interpretation Code Description Data Giovana rce(s) Supporting Document(s) SARS coronavirus 2 RNA [Presence] in Res piratory specimen by ADONAY with probe detection [facility] This lab was ordered by [facility] a nd reported by [facility]. ID Date Data Source [id number] 06/28/2020 01:51:39 PM EST [facility] Name Value Range Interpretation Code Description Data Giovana rce(s) Supporting Document(s) Progress Note [facility] [id number] [facility] [file] ICAgICAgICAgICAgICAgICAgICAgICAgICAgICAgICAgICAgICAgICAgICAgICAgICAgICAgICAgICAg ICAgICAgICAgICAgICAgICAgICAgICANCiAgICAgIC AgICAgICAgICAgICAgICAgICAgICAgICAgICAgICAgICAgICAgICAgICAgICAgICAgICAgICAgICAgIC AgICAgICAgICAgICAgICAgICAgICAgICAgICAgICAgICANCiAgICAgICAgICAgICAgICAgICAgICAgIC AgICAgICAgICAgICAgICAgICAgICAgICAgICAgICAg ICAgICAgICAgICAgICAgICAgICAgICAgICAgICAgICAgICAgICAgICAgICANCiAgICAgICAgICAgICAg ICAgICAgICAgICAgICAgICAgICAgICAgICAgICAgICAgICAgICAgICAgICAgICAgICAgICAgICAgICAg ICAgICAgICAgICAgICAgICAgICAgICAgICANCiAgIC AgICAgICAgICAgICAgICAgICAgICAgICAgICAgICAgICAgICAgICAgICAgICAgICAgICAgICAgICAgIC AgICAgICAgICAgICAgICAgICAgICAgICAgICAgICAgICAgICANCiAgICAgICAgICAgICAgICAgICAgIC AgICAgICAgICAgICAgICAgICAgICAgICAgICAgICAg ICAgICAgICAgICAgICAgICAgICAgICAgICAgICAgICAgICAgICAgICAgICAgICANCiAgICAgICAgICAg ICAgICAgICAgICAgICAgICAgICAgICAgICAgICAgICAgICAgICAgICAgICAgICAgICAgICAgICAgICAg ICAgICAgICAgICAgICAgICAgICAgICAgICAgICANCi AgICAgICAgICAgICAgICAgICAgICAgICAgICAgICAgICAgICAgICAgICAgICAgICAgICAgICAgICAgIC AgICAgICAgICAgICAgICAgICAgICAgICAgICAgICAgICAgICAgICANCiAgICAgICAgICAgICAgICAgIC AgICAgICAgICAgICAgICAgICAgICAgICAgICAgICAg ICAgICAgICAgICAgICAgICAgICAgICAgICAgICAgICAgICAgICAgICAgICAgICAgICANCiAgICAgICAg ICAgICAgICAgICAgICAgICAgICAgICAgICAgICAgICAgICAgICAgICAgICAgICAgICAgICAgICAgICAg ICAgICAgICAgICAgICAgICAgICAgICAgICAgICAgIC ANCjw/uENwD6iuzRIedzM0R2asRf0KDq5NLK2ul5DoIMFbAMmpvyGjXemUPqMaRKMgExvNJlf2PWckVO 9UjBGsF1JqG2RkEWnbMY8UFFDnKXXqjNVnMYGrMXLfBmE1KEGsDBwqAN1VtTSjHPsiKVXzVRLkGwGoCY OrQT6TEIKzW717kkKeQo5CYz5HLeTtDY9fip6DUnfg BWLiCoaKMvg9OSseJK7TjIMynJTgUVSeZBSVXcSxF8rkk2ZfXoxvVBABEKxePC1Ot4EdeHCfASw+Pg0K IF4bx8BaTDnlFIAcMW7ixa9WXVfNGeCbI1LxdSqbVYNvl0xsFUHtXZ1csDExFVI2QGPkd1F0FY6wZtQq tlLmr2YcHhGbPppiUZVfQRVvVDCqKc4rTFVaDTWqEf YyJBOOIC1QNXTuAFLscBTgEQLuWYSQVC9AKXakSUV3VFXyzsGfrUOwEIvhAQ1UUJLqwpNhQaodRUKCAX o+Yw0WCJ4hm7UxHGykLZLfES7sbf9CYYkKBvRwK7D0yADjX3V6EZxcYe9HGMLyIIUmEvWsZGLBZRqtNC 4WJU6pymR0OX7XeBNuUHRmWHWynXLzDSy3Q66xbGPw FTwzQA3TWKY+Jey+Xp2BEDSnYVSpKLWpAvVuAQMXNnRwJ7QvB9IAt8FxX0JmNO90tHpotpEmMOxiCW1O NV9pBAAxXUHZES2EcLUcpU2exsUnXxQvPCSTXePcI24mhVWyOVRcPSR2OVElDi5CBHYoG4MwygIldQpf kjJpMIJhYINIKL2BVBiyexJvyVQizQsdLZ32dPelPA 8DEw4GUlQbPI4kov1JnRClOq3DTPItAS1IKXRaFNXvKMVyWPL5OOWkSqNgITwiOSHqUMBtDFN9BPRxCW XjQG3KCjYfHQJmSuS7VLXdKTFiMJYxfi6JSCInKBHbJyH4AhJzKHOpDNXoIWlcIHOjPDPyBXV7PQXvSY ZoDV1EEfXpOCYqMNR5FREnYWUmADUjoz0AUPLyEHPp LBR7PnDrTEAgOKWhSEcaPSInXIY8CABnYROfQPQvFX9IBpStSWOtGYjlKPNlVTMtNIFbbp9HUTHdKUTl ZYO8CeHuACHzILTkMCehSNCbPHY6BzP3GFHtSKQaEN7TMyAcVGFhWFh5MYBoLXPeIUHbfb4QXQEpZFBp BLZ4CUOpEWMjVOAcDGhbHHPsPXC5WcJcZLLaHLIvLI 2AUjRzQMYoOHe7DXqbSXMyIOKdqu4NFBZtTYZgMZC8YJEnBWAaIBTzVLmlAZLbCZCxJUQdQVPtJNHcNN 9DUaIvCDCuQmW5EbfjYFByMIOghh2ITEVaQPLtGhGxWEFwITVlJMHkNEdzJDUvJMJaOVD1EKKaIBBhDU 2NMrLcUHCqYbCkSQwsIDDiGDZinf5EZPBdFQHmRtT2 FCYdITMgXKIfKSdaNFOhIOTiLSl9ZHLuKDJdYW1KQiHlQFAuPxC4TSlsTJYtKVVzew2YJFXcSRVdJXFs IiOdGRKlLAYxILwvXQGgEZV2Tks2MXKqVQGvQP4RXaKzPBKrDsOzEQtoCPGcJHCslx4ETVErLQRjXyW3 IBVzQLHyCVZfUSvoAHZoSTW4ZzYvOGNwGFWiQZ9DZi RrDOCiYjF9CZxpSNCyUNYlbl2BwLXwgHeoqp9QYQfUQv6QeNlsGLSmYBvfRr4vxQGqAKQsUWTSQp6Xsw SiDQQuFTCHMRopAAPrOELfHnUdUcXzPfL7MIWsIXO6PNFrHrygKfWsOmBlGONmCcM7MUIoLRYvUUAoJK EeI4McPhuaHQHnKXM3PREcQZP2CtY+KD1rXPp+Vx8Dc4QrmqT3xcNpBZvaWmJtWy2TVZZMB1MMNn== ID Date Data Source [id number] 06/06/2020 03:12:03 PM [facility] Name Value Range Interpretation Code Description Data Giovana rce(s) Supporting Document(s) Progress Note [facility] URSDRq2sEjRZNtAu65/NDYqtJQQcf7CvKEkkFUo5YGhjFHNhL5XsEJB5xN0wOEK3WKpEWtOtJzSqDFRm lbm [file] IeS2LIH6HeS6ScG+AV7dHXm+Dd1Gl1KlcyA3moBoFCjtXQYgJm9KDKTSM0XXVt== ID Date Data Source [id number] 05/10/2020 10:14:00 AM EDT [facility] ([facility]) Name Value Range Interpretation Code Description Data Giovana rce(s) Supporting Document(s) Surgical pathology study Laboratory test result [facility] ([facility]) FINAL DIAGNOSIS Esophagus, below Z-line, biopsy: Junctional [...] MD 05/12/2020 1140 ID Date Data Source [id number] 05/09/2020 02:17:55 PM EDT [facility] Name Value Range Interpretation Code Description Data Giovana rce(s) Supporting Document(s) Progress Note [facility] JLLVZc2sUsRZPuDg18/JACqbOEMjm9DkUMbnCCo2AVzwMNPcT5OlVJP5sG2wQWA9BBpXThPcPiKiYDBp [facility] [file] VD1FDGw= ID Date Data Source [id number] 05/05/2020 11:55:00 AM EDT [facility] Name Value Range Interpretation Code Description Data [facility] Supporting Document(s) SARS coronavirus 2 RNA [facility] This lab was ordered by [facility] and reported by [facility]. ID Date Data Source [id number] 04/27/2020 06:09:28 AM EDT [facility] XR FOOT 3 OR MORE VIEWS [id number] RESUL TInterpreted by:Fallon Smith ankle 2 views [...] rce(s) Supporting Document(s) ID Date Data Source [id number] 04/27/2020 06:09:28 AM EDT [facility] XR ANKLE 2 VIEWS [id number] RESULTInterp reted by:Fallon Smith ankle 2 views [...] prior.This document has been electronically signed by Naobr Larson MD on 04/27/2020 6:07 AM Name Value Range Interpretation Code Description Data Giovana rce(s) Supporting Document(s) ID Date Data Source [id number] 04/26/2020 04:20:41 PM T [facility] Name Value Range Interpretation Code Description Data Giovana rce(s) Supporting Document(s) Progress Note [facility] USWPAu2lSuHMLxEg87/BIAewQKTyo9BaCTmzENe7BUnkRMNxC1CfMZO4mW1xDLP0NPnTGhFaXeOoNIZj lbm [file] llEhXlFX1YMt8NOmA2MTQ8bXVjEl7ANuX6VarEJjArBA1CLIs= ID Date Data Source [id number] 03/29/2020 12:20:00 [place] [address] PHONE: [phone] FAX: [phone] Name .................. : GAVIOTA Madison Acct Number.................. : [id number] ROOM. ................. : MR Number ................... : [id number] Stay type ............. : CLINIC Discharge Date......... ... : 03/27/20 Admit Date ......... : 03/27/20 Admit Phys .................... : HESTER HARD Date of ....... : 1990 Family Phys ................... : HESTER HARD Phone .................. : [phone] Age ................................ : 29 Film# .................. .:[id number] Sex ................................. : M Unsigned transcriptions are preliminary reports and do not represent a medical or legal document CT ABD & PELV W/O ORAL W/O IV [id number] COMPLETE:03/27/20 14:16 RLB [id number] (REASON FOR ABDOMEN: LOWER ABD PAIN CT [...] dose: 2953.0 mGycm Page 1 of 2 [facility] [address] [place] [address] PHONE: [phone] FAX: [phone] Name .................. : GAVIOTA Madison Acct Number.................. : [id number] ROOM. ................. : Number ................... : [id number] Stay type ............. : CLINIC Discharge Date......... ... : 03/27/20 Admit Date ......... : 03/27/20 Admit Phys .................... : [employer] HARD Date of ....... : 1990 Family Phys ................... : [employer] H[employer] Phone .................. : [phone] Age ................................ : 29 Film# .................. .:[id number] Sex ................................. : M Unsigned transcriptions are preliminary reports and do not represent a medical or legal document CT ABD & PELV W/O ORAL W/O [place] [id number] COMPLETE:03/27/20 14:16 RLB [id number] (REASON FOR ABDOMEN: LOWER ABD PAIN Electronically Reviewed and Signed By Yousif Bernardo M.D. , 03/29/20 12:20, [place] Transcribe Initials: GUCCI , Transcribe Date: 03/27/20 23:48, Dictation Date: Page 2 of 2 Name Value Range Interpretation Code Description Data Giovana rce(s) Supporting Document(s) ID Date Data Source [id number] 03/22/2020 03:26:00 PM EDT [facility] 1 OrderSheet [facility] Emergency Department [address] [place] [address] Phone #: ext- [phone] 03/22/2020 15:24 Patient: NICK TRUJILLO Sex: M : 1990 Age: 29yWEIGHT:190.5 kg (S) HEIGHT:71 inches (S) BMI:58.6ALLERGIES: Dilantin, Naproxen, Naproxsyn, Tylenol with codeinCHIEF COMPLAINT: abdominal painDIAGNOSIS: Abdominal painLAB ORDERSOrder Description Priority Entered Acknowledged InitialedCBC w Diff STAT 15:41 03/22/2020 15:42 Allyn Banda Riccardo Tiffany R.N. M.D.;CMP STAT 15:41 03/22/2020 15:42 Allyn Banda Riccardo Tiffany R.N. M.D.;Lipase STAT 15:41 03/22/2020 15:42 Allyn Banda Riccardo Tiffany R.N. M.D.;DIAGNOSTIC STUDY ORDERSOrder Description Priority Entered Acknowledged InitialedMEDICATION/IV/DRIP/FLUID ORDERSOrder Description Priority Entered Acknowledged InitialedAtivan IM 1 mg 15:41 03/22/2020 16:03 Solo(HIGH ALERT Cleo Tatum R.N.MEDICATION) Byron;GENERAL ORDERSOrder Description Priority Entered Acknowledged InitialedNPO 15:41 03/22/2020 15:42 Allyn Banda Riccardo Tiffany R.N. M.D.;[Electronically signed by Enedina Banda R.N. (17:25 03/22/2020)][Electronically signed by Cleo Tatum M.D. (17:36 03/22/2020)][Electronically locked by Enedina Banda R.N. (17:03/22/2020)] Name Value Range Interpretation Code Description Data Giovana rce(s) Supporting Document(s) ID Date Data Source [id number] 03/22/2020 03:26:00 PM EDT [facility] 1 Medication Reconciliation Report [facility] Emergency Department [address] [place] [address] Phone #: ext- [phone] 03/22/2020 15:24 Patient: [...] ODT Oral, prn 2 Medication Reconciliation Report [facility] Emergency Department [address] [place] [address] Phone #: ext- [phone] 03/22/2020 15:24 Patient: NICK TRUJILLO Sex: M : 1990 Age: 29yThe source(s) of the original Home Medication information:patientThe following Medications were given to the patient in the Emergency Department:Ativan [IM] IM 1 mg, administered: 03/22/2020 4:03:00 PMThe following Medications were prescribed to the patient:None. Name Value Range Interpretation Code Description Data [facility](s) Supporting Document(s) ID Date Data Source [id number] 03/22/2020 03:26:00 PM EDT [place] [address] Medication Administration Record [facility] Emergency Department [address] [place] [address] Phone #: ext- [phone] 03/22/2020 15:24 Patient: NICK TRUJILLO Sex: M : 1990 Age: 29yWeight: 190.5 kgHeight/Length: 71 inBMI: 58.6ALLERGIES: Dilantin, Naproxen, Naproxsyn, Tylenol with codein Date/Time Medication Administered Medication OrderedGiven ATIVAN [IM] (LORAZEPAM) Ativan IM 1 mg (HIGH ALERT16:03 03/22/2020 Dose: 1 mg IM MEDICATION)Enedina Banda R.N. Name Value Range Interpretation Code Description Data [facility] Supporting Document(s) ID Date Data Source [id number] 03/22/2020 03:26:00 PM EDT [facility] 1 General Instructions [facility] Emergency Department [address] [place] [address] Phone #: ext- [phone] 03/22/2020 15:24 Patient: NICK TRUJILLO Sex: M : 1990 Age: 29yChronic periumbilical abdominal pain, now resolved. (recurrent).INSTRUCTIONSDrink plenty of fluids. Avoid alcohol and NSAIDS. NSAIDS include aspirin, ibuprofen (Advil) and naproxen(Aleve). Avoid fatty, fried/greasy, lactose-containing (such as milk, cheese and ice cream), salty and spicyfoods. No alcohol. Do not smoke.Warnings: Further evaluation is necessary ([facility]). It is very important to [...] provided to patient viapaper. 2 General Instructions [facility] Emergency Department [address] [place] [address] Phone #: ext- [phone] 03/22/2020 15:24 Patient: NICK TRUJILLO Sex: M : 1990 Age: 29yUnderstanding of the discharge instructions verbalized by patient. Expected course of illness, dischargeinstructions, activity level, diet, follow-up appointment and risks and benefits of treatment reviewed withpatient and understanding verbalized. Agrees to plan of care.Follow-up with: [facility], , , [address] [place] [address], [address] Follow up in five days even if [...] options include broth, soup, 3 General Instructions [facility] Emergency Department [address] [place] [address] Phone #: ext- [phone] 03/22/2020 15:24 Patient: [...] chest, arm, back, neck or jaw pain [phone] [employer]. [address] [place] [address], [place] [address]. All rights reserved. This information is not intended as asubstitute for professional medical care. Always follow your healthcare professional's instructions. You have been given the following additional information: Unknown Causes of Abdominal Pain (Male)(Electronically signed by Cleo Tatum M.D. 03/22/2020 17:36) Name Value Range Interpretation Code Description Data Giovana rce(s) Supporting Document(s) ID Date Data Source [id number] 03/22/2020 03:26:00 PM EDT [facility] 1 Clinical Report - Nurses [facility] Emergency Department [address] [place] [address] Phone #: ext- [phone] 03/22/2020 15:24 Patient: [...] inches Per Patient. BMI: 58.6. --15:24 03/22/20 Farnaz, Toyin,R.N.MedicationsAlbuterol Sulfate Inhalation, as needed. Incruse Ellipta Inhalation, [...] Osei R.N. 2 Clinical Report - Nurses [facility] Emergency Department [address] [place] [address] Phone #: ext- [phone] 03/22/2020 15:24 Patient: [...] Osei R.N. 3 Clinical Report - Nurses [facility] Emergency Department [address] [place] [address] Phone #: ext- [phone] 03/22/2020 15:24 Patient: [...] Patient verbalized understanding. Written instructions provided in Serbian. The patient was discharged home. He left ambulatory and via private vehicle. --17:24 03/22/20 Enedina Banda R.N.Locked/Released at 03/22/2020 17:25 by Enedina Banda R.N. Name Value Range Interpretation Code Description Data Giovana rce(s) Supporting Document(s) ID Date Data Source [id number] 03/22/2020 03:26:00 PM EDT [facility] 1 Clinical Report - Physicians/Mid Levels [facility] Emergency Department [address] [place] [address] Phone #: ext- [phone] 03/22/2020 15:24 Patient: [...] umbilical hernia repair several weeks ago at [facility], saw his surgeon last week for [...] Cholecystectomy. 2 Clinical Report - Physicians/Mid Levels [facility] Emergency Department [address] [place] [address] Phone #: ext- [phone] 03/22/2020 15:24 Patient: NICK TRUJILLO Sex: M [...] pulses 3 Clinical Report - Physicians/Mid Levels [facility] Emergency Department [address] [place] [address] Phone #: ext- [phone] 03/22/2020 15:24 Patient: NICK TRUJILLO Sex: M [...] 8.2) 4 Clinical Report - Physicians/Mid Levels [facility] Emergency Department [address] [place] [address] Phone #: ext- [phone] 03/22/2020 15:24 Patient: [...] be referred to our surgeon here at [facility] for his chronic, recurrent abdominal pain, we [...] (recurrent). 5 Clinical Report - Physicians/Mid Levels [facility] Emergency Department [address] [place] [address] Phone #: ext- [phone] 03/22/2020 15:24 Patient: NICK TRUJILLO Sex: M : 1990 Age: 29yINSTRUCTIONS Drink plenty of fluids. Avoid alcohol and NSAIDS. NSAIDS include aspirin, ibuprofen (Advil) and naproxen (Aleve). Avoid fatty, fried/greasy, lactose-containing (such as milk, cheese and ice cream), salty and spicy foods. No alcohol. Do not smoke. Warnings: Further evaluation is necessary ([facility]). It is very important to [...] plan of care. Follow-up with: [facility], , , [address] [place] [address], [facility] Follow up in five days even if well. Call for an appointment. Reason for referral: evaluation and treatment. Summary of care provided to patient via paper. 6 Clinical Report - Physicians/Mid Levels [facility] Emergency Department [address] [place] [address] Phone #: ext- [phone] 03/22/2020 15:24 Patient: NICK TRUJILLO Sex: M : 1990 Age: 29y(Electronically signed by Cleo Tatum M.D. 03/22/2020 17:36) Name Value Range Interpretation Code Description Data Giovana e(s) Supporting Document(s) ID Date Data Source [id number] 03/22/2020 04:34:00 PM EDT [facility] Name Value Range Interpretation Code Description Data Giovana rce(s) Supporting Document(s) Lipase [Enzymatic activity/volume] in Serum or Plasma 34 U/L 13 - 60 [facility] ID Date Data Source [id number] 03/22/2020 04:34:00 PM EDT [facility] Name Value Range Interpretation Code Description Data Giovana rce(s) Supporting Document(s) COMPREHENSIVE METABOLIC PANEL [facility] COMPREHENSIVE METABOLIC PANEL Sodium [Moles/volume] in Serum or Plasma 140 mEq/L 134 - 153 [facility] Potassium [Moles/volume] in Serum or Plasma 4.2 mEq/L 3.6 - 5.0 [facility] Chloride [Moles/volume] in Serum or Plasma 106 mEq/L 98 - 107 [facility] Carbon dioxide, total [Moles/volume] in Serum or Plasma 24 MEQ/L 22 - 30 [facility] Glucose [Mass/volume] in Serum or Plasma 110 MG/DL 65 - 110 [facility] BUN 12 MG/DL 7 - 21 [facility] Creatinine [Mass/volume] in Serum or Plasma 0.9 MG/DL 0.7 - 1.5 [facility] BUN/CREAT 13 8 - 27 [facility] Protein [Mass/volume] in Serum or Plasma 7.7 G/DL 6.3 - 8.2 [facility] Albumin [Mass/volume] in Serum or Plasma 4.1 G/DL 3.9 - 5.0 [facility] Globulin [Mass/volume] in Serum by calculation 3.6 GM/DL 2.4 - 3.2 H [facility] A/G RATIO 1.1 0.8 - 2.0 [facility] Calcium [Mass/volume] in Serum or Plasma 9.0 MG/DL 8.4 - 10.2 [facility] Bilirubin.total [Mass/volume] in Serum or Plasma <0.7 MG/DL 0.2 - 1.3 [facility] Alkaline phosphatase [Enzymatic activity/volume] in Serum or Plasma 83 U/L 38 - 126 [facility] Aspartate aminotransferase [Enzymatic activity/volume] in Serum or Plasma 27 U/L 5 - 40 [facility] Alanine aminotransferase [Enzymatic activity/volume] in Seru m or Plasma 37 U/L 7 - 56 [facility] Anion gap 3 in Serum or Plasma 10.0 mmol/L 8.0 - 16.0 [facility] AGE 29 yrs [facility] al NON-AA GFR >60 mL/min [facility] ital AFR AMER GFR >60 mL/min [facility] Ho spital Male GFR In terprentation 20-49 [...] >32 mL/min Normal ID Date Data Source [id number] 03/22/2020 04:15:00 PM EDT [facility] Name Value Range Interpretation Code Description Data Giovana rce(s) Supporting Document(s) CBC W/AUTOMATED DIFF [facility] COMPLETE BLOOD COUNT Leukocytes [#/volume] in Blood by Automated count 9.6 10^3/uL 4.2 - 1 1.0 [facility] Erythrocytes [#/volume] in Blood by Automated count 5.41 10^6/uL 4. 50 - 6.30 [facility] Hemoglobin [Mass/volume] in Blood 15.9 g/dL 14.0 - 16.0 [facility] Hematocrit [Volume Fraction] of Blood by Automated count 48.7 % 4 1.0 - 51.0 [facility] Erythrocyte mean corpuscular volume [Entitic volume] by Auto mated count 90.0 fL 80.0 - 94.0 [facility] Erythrocyte mean corpuscular hemoglobin [Entitic mass] by Automated count 29.4 pg 27.0 - 34.0 [facility] Erythrocyte mean corpuscular hemoglobin concentration [Mass/volume] by Automated count 32.6 g/dL 31.0 - 36.0 [facility] Erythrocyte distribution width [Ratio] by Automated count 14.4 % 11.5 - 14.8 [facility] Platelets [#/volume] in Blood by Automated count 197 10^3/uL 150 - 45 0 [facility] Platelet mean volume [Entitic volume] in Blood by Automated count 9.0 fL 7.4 - 10.4 [facility] Neutrophils/100 leukocytes in Blood by Automated count 63.6 % 37. 0 - 80.0 [facility] Lymphocytes/100 leukocytes in Blood by Manual count 22.2 % 25.0 - 40.0 L [facility] Monocytes/100 leukocytes in Blood by Automated count 9.9 % 3.0 - 8.0 H [facility] Eosinophils/100 leukocytes in Blood by Automated count 3.7 % 0.0 - 7.0 [facility] Basophils/100 leukocytes in Blood by Automated count 0.3 % 0.0 - 2.0 [facility] %IG 0.3 % 0.0 - 0.0 H [facility] al %NRBC 0.0 % 0.0 - [facility] [#/volume] in Blood by Automated count 6.13 10^3/uL 2.00 - 6.90 [facility] Lymphocytes [#/volume] in Blood by Automated count 2.14 10^3/uL 0.60 - 3.40 [facility] Monocytes [#/volume] in Blood by Automated count 0.95 10^3/uL 0.00 - 0.90 H [facility] Eosinophils [#/volume] in Blood by Automated count 0.36 10^3/uL 0.00 - 0.70 [facility] Basophils [#/volume] in Blood by Automated count 0.03 10^3/uL 0.00 - 0.20 [facility] #IG 0.03 10^3/uL 0.00 - 0.10 [facility] #NRBC 0.00 10^3/uL 0.00 - 0.00 [facility] MANUAL DIFF NOT INDICATED [facility] RBC MORPH NOT INDICATED [facility] ID Date Data Source [id number] 03/13/2020 02:06:[address] [facility] [address] [place] [address] PHONE: [phone] FAX: [phone] Name .................. : GAVIOTA Madison Acct Number.................. : [id number] ROOM. ................. : TR-08 Number ................... : [id number] Stay type ............. : E/R Discharge Date......... ... : Admit Date ......... : 03/09/20 Admit Phys .................... : TALIA Madison Date of ....... : 1990 Family Phys ................... : MIR HARD Phone .................. : [phone] Age ................................ : 29 Film# .................. .:[id number] Sex ................................. : M Unsigned transcriptions are preliminary reports and do not represent a medical or legal document CT ABD & PELV W/ORAL ONLY [id number] COMPLETE:03/09/20 21:11 [id number] [id number] Reason(s): Abdominal Pain CT OF THE ABDOMEN [...] 75 Isovue 370 Page 1 of 2 [facility] [address] [facility] [address] [place] [address] PHONE: [phone] FAX: [phone] Name .................. : GAVIOTA Madison Acct Number.................. : [id number] ROOM. ................. : TR-08 MR Number ................... : [id number] Stay type ............. : E/R Discharge Date......... ... : Admit Date ......... : 03/09/20 Admit Phys .................... : TALIA Madison Date of ....... : 1990 Family Phys ................... : HESTER HARD Phone .................. : [phone] Age ................................ : 29 Film# .................. .:[id number] Sex ................................. : M Unsigned transcriptions are preliminary reports and do not represent a medical or legal document CT ABD & PELV W/ORAL ONLY [id number] COMPLETE:03/09/20 21:11 KJE [id number] Reason(s): Abdominal Pain Method of administration: Intravenous Electronically Reviewed and Signed By Yousif Bernardo M.D. , 03/13/20 14:06, [place] Transcribe Initials: GUCCI , Transcribe Date: 03/09/20 23:30, Dictation Date: Copy for: EMERGENCY DEPT via modem Copy for: 710 MED REC DISCHARGED Page 2 of 2 Name Value Range Interpretation Code Description Data Giovana rce(s) Supporting Document(s) ID Date Data Source [id number] 03/09/2020 05:46:00 PM EDT [facility] 1 OrderSheet [facility] Emergency Department [address] [place] [address] Phone #: ext- [phone] 03/09/2020 17:13 Patient: [...] Description Priority Entered Acknowledged Initialed 2 OrderSheet [facility] Emergency Department [address] [place] [address] Phone #: ext- [phone] 03/09/2020 17:13 Patient: [...] rce(s) Supporting Document(s) ID Date Data Source [id number] 03/09/2020 05:46:00 PM EDT [facility] 1 Medication Reconciliation Report [facility] Emergency Department [address] [place] [address] Phone #: ext- [phone] 03/09/2020 17:13 Patient: [...] ODT Oral, prn 2 Medication Reconciliation Report [facility] Emergency Department [address] [place] [address] Phone #: ext- [phone] 03/09/2020 17:13 Patient: NICK TRUJILLO Sex: M : 1990 Age: 29yThe source(s) of the original Home Medication information:Not obtained.The following Medications were given to the patient in the Emergency Department:None.The following Medications were prescribed to the patient:None. Name Value Range Interpretation Code Description Data Giovana rce(s) Supporting Document(s) ID Date Data Source [id number] 03/09/2020 05:46:00 PM EDT [facility] 1 Medication Administration Record [facility] Emergency Department [address] [place] [address] Phone #: ext [phone] 03/09/2020 17:13 Patient: NICK TRUJILLO Sex: M : 1990 Age: 29yWeight: 179.1 kgHeight/Length: 71 inBMI: 55.1ALLERGIES: Naproxen, Dilantin, Tylenol with codiene, Naproxsyn, Tylenol with codeinDate/Time Medication Administered Medication Ordered Name Value Range Interpretation Code Description Data Giovana rce(s) Supporting Document(s) ID Date Data Source [id number] 03/09/2020 05:46:00 PM EDT [facility] 1 General Instructions [facility] Emergency Department [address] [place] [address] Phone #: ext [phone] 03/09/2020 17:13 Patient: NICK TRUJILLO Sex: M [...] when you follow up. 2 General Instructions [facility] Emergency Department [address] [place] [address] Phone #: ext- [phone] 03/09/2020 17:13 Patient: [...] your healthcare provider or specialist for f barbara recommendations. If you have diarrhea, it may [...] red or black color) 3 General Instructions [facility] Emergency Department [address] [place] [address] Phone #: ext- [phone] 03/09/2020 17:13 Patient: NICK TRUJILLO Sex: M : 1990 Age: 29y Jaundice (yellow color of eyes and skin) New onset of weakness, dizziness or fainting New onset of chest, arm, back, neck or jaw pain [phone] [employer]. [address] [place], [place] [id number]. All rights reserved. This information is not [...] bloating Feeling full quickly 4 General Instructions [facility] Emergency Department [address] [place] [address] Phone #: ext- [phone] 03/09/2020 17:13 Patient: [...] dizzy Shortness of breath 5 General Instructions [facility] Emergency Department [address] [place] [address] Phone #: [phone]- [phone] 03/09/2020 17:13 Patient: NICK TRUJILLO Sex: M : 1990 Age: 29y Unexplained weight loss Fever of 100.4F (38C) or higher, or as directed by your healthcare provider 1958-1971 [employer]. [address] [place] [address]. All rights reserved. This information is not [...] rce(s) Supporting Document(s) ID Date Data Source [id number] 03/09/2020 05:46:00 PM EDT [facility] 1 Clinical Report - Nurses [facility] Emergency Department [address] [place] [address] Phone #: ext- [phone] 03/09/2020 17:13 Patient: NICK TRUJILLO Sex: M : 1990 Age: 29yTRIAGEArrived by EMS. Historian: patient. ( PT HAD HERNIA SURGERY 4 WEEKS AGO AND HE SAYS MAGNOLIA RIVERA. NO DRAINAGE. PT HAS APPT NEXT WITH SURGEON-DR. FINNEY IN [place].PROCEDURE [facility] T [facility]).Triage time: 17:14 03/09/2020. Acuity: LEVEL 3.Chief Complaint: ABDOMINAL PAIN.Alert.The patient has had abdominal pain.Treatment ELECTROMATIC TYPIST:None. --17:18 03/09/20 Enedina Banda R.N.17:14 03/09/20. BP: [...] Banda R.N.Naproxsyn. 2 Clinical Report - Nurses [facility] Emergency Department [address] [place] [address] Phone #: ext- [phone] 03/09/2020 17:13 Patient: [...] treatment room. --17:18 03/09/20 Enedina Banda R.N.PHYSICAL [id number] 03/09/20. To room via stretcher.GENERAL / NEURO [...] RR: 16. O2 saturation: 97%. --18:27 03/09/20 [facility] TechEnedina Tech1 18:30 03/09/20. Patient gowned. Head of bed elevated 75 degrees. Two patient identifiers checked. Call light placed in reach. Bed placed in lowest position. Brakes of bed on. Patient ready for evaluation- chart flagged. --18:30 03/09/20 Phillip Drummond RN 3 Clinical Report - Nurses [facility] Emergency Department [address] [place] [address] Phone #: ext- [phone] 03/09/2020 17:13 Patient: NICK TRUJILLO Sex: M [...] --23:56 03/09/20 Bean Peace RN.DISPOSITION / DISCHARGE [place] Coma Scale: 15- eyes open- spontaneous (4); best verbal response- oriented (5); best motor response- obeys commands (6). Condition at departure: improved. No learning barriers present. Reviewed referral to family practice and a terminal block assembler for followup. Reviewed need for increased fluid intake. Activity restrictions (rest) reviewed. Patient verbalized understanding. Written instructions provided in Serbian. The patient was discharged home. He left [...] Peace RN. 4 Clinical Report - Nurses [facility] Emergency Department [address] [place] [address] Phone #: jhk- [phone] 03/09/2020 17:13 [id number] Sex: M : 1990 Age: 29yLocked/Released at 03/10/2020 00:45 by Bean Peace RN Name Value Range Interpretation Code Description Data Giovana rce(s) Supporting Document(s) ID Date Data Source [id number] 03/09/2020 05:46:00 PM EDT [facility] 1 Clinical Report - Physicians/Mid Levels [facility] Emergency Department [address] [place] [address] Phone #: ext- [phone] 03/09/2020 17:13 Patient: NICK TRUJILLO Sex: M : 1990 Age: 29y Time Seen: 18:33 03/09/2020. Historian- patient. Disposition decision: 00:11 03/10/2020.HISTORY OF PRESENT ILLNESS Chief Complaint: ABDOMINAL PAIN. (29 year old morbuidly obese patient with abdominal pain past few weeks. had a cholecystectomy a nd later umbilical hernia repair done also at [place] [facility]. has an appointment with f/u with surgeon [...] Repair. 2 Clinical Report - Physicians/Mid Levels [facility] Emergency Department [address] [place] [address] Phone #: ext- [phone] 03/09/2020 17:13 Patient: NICK TRUJILLO [facility]#: [id number] Sex: M : 1990 Age: 29y Tonsillectomy. [...] sounds 3 Clinical Report - Physicians/Mid Levels [facility] Emergency Department [address] [place] [address] Phone #: ext- [phone] 03/09/2020 17:13 Patient: [...] Exam CT ABD //T// [place]ELV [place] [address] PHONE: [phone] FAX: [phone] Name .................. : GAVIOAT [place] Acct Number.................. : [id number] ROOM. ... .............. : TR-08 Number ................... : [id number] Stay type ............. : E/R Discharge Date......... ... : Admit Date ......... : 03/09/20 Admit Phys .................... : TALIA [place] Date of ....... : 1990 Family Phys ................... : MIR HARD Phone .................. : [phone] Age ................................ : 29 Film# .................. .:[id number] Sex ................................. : M Unsigned transcriptions are [...] thickening. 4 Clinical Report - Physicians/Mid Levels [facility] Emergency Department [address] [place] [address] Phone #: ext- [phone] 03/09/2020 17:13 Patient: [...] mL: 75 Isovue 370 Page 1of [address] [place] [address] PHONE: [phone] FAX: [phone] Name .................. : GAVIOTA [place] Acct Number.................. : [id number] ROOM. ................. : TR-08 MR Number ................... : [id number] Stay type ............. : E/R Discharge Date......... ... : Admit Date ......... : 03/09/20 Admit Phys .................... : TALIA [place] Date of ....... : 1990 Family Phys ................... : MIR HARD Phone .................. : [phone] Age ..................... ........... : 29 Film# .................. .:[id number] Sex ................................. : M Unsigned transcriptions are preliminary reports and do not represent a medical or legal document CT ABD Reason(s): Abdominal Pain Method of administration: Intravenous Electronically Reviewed and Signed By DCTNAME , SIGNDATE, MARQUISE Transcribe Initials: DZ , Transcribe Date: 03/09/20 23:30, Dictation Date: <<REPDIST>> Page 2of 2ISOVUE 370 CONTRAST (PER ML): (KAVITA: 03/09/2020 20:43) ( MsgRcvd 03/09/2020 21:11) CanceledPREGNANCY STATUS: NA MALE ISOLATION n 5 Clinical Report - Physicians/Mid Levels [facility] Emergency Department [address] [place] [address] Phone #: ext- [phone] 03/09/2020 17:13 Patient: [...] Male GFR Interprentation 20-49 yrs >60 mL/min Udxsaz60-38 yrs >56 mL/min Normal 60-69 yrs >49 mL/min Normal 70-79yrs>42 mL/min Normal 80 and above >35 mL/min Normal Female GFRInterpretation 20-39 yrs >60 mL/min Normal 40-49 yrs >58 mL/minNormal 50-59 yrs >51 mL/min Normal 60-69 yrs >45 mL/min Qrzcyw68-97 yrs >39 mL/min Normal 80 and above >32 mL/min NormalLipase: (KAVITA: 03/09/2020 19:10) ( [facility] 03/09/2020 19:35) Final results Test Result Flag Units (Reference) LIPASE 39 U/L (13 - 60)Lactic Acid: (KAVITA: 03/09/2020 19:10) ( [facility] 03/09/2020 19:19) Final results Test Result Flag [...] 51.0) 6 Clinical Report - Physicians/Mid Levels [facility] Emergency Department [address] [place] [address] Phone #: ext- [phone] 03/09/2020 17:13 Patient: NICK TRUJILLO Sex: M [...] has an appointment with his surgeon at [place] [facility] [facility] next week, advised to keep the appointment, return if any symptoms. Patient/family counseled. Old medical records ordered. Disposition: Discharged home in good and improved cond ition (00:11 Mar 10 2020). Condition: stable. 7 Clinical Report - Physicians/Mid Levels [facility] Emergency Department [address] [place] [address] Phone #: ext- [phone] 03/09/2020 17:13 Patient: NICK TRUJILLO Sex: M [...] Name Value Range Interpretation Code Description Data Givoana rce(s) Supporting Document(s) ID Date Data Source [id number] 03/09/2020 07:33:00 PM EDT [facility] Name Value Range Interpretation Code Description Data [facility] rce(s) Supporting Document(s) [facility]YS[facility] SOURCE R [facility] COL[facility] yellow NORMAL: Yellow [facility] CLARITY clear NORMAL: Clear [facility] Specific gravity of Urine by Test strip 1.010 1.001 - 1.030 [facility] pH 7 5 - 9 [facility] al Glucose [Mass/volume] in Urine by Test strip NORM NORMAL: Negat [facility] Bilirubin.total [Presence] in Urine by Test strip NEG NORMAL: Negative [facility] Ketones [Presence] in Urine by Test strip NEG NORMAL: Negative [facility] Protein [Mass/volume] in Urine by Test strip NEG NORMAL: Negat [facility] Nitrite [Presence] in Urine by Test strip NEG NORMAL: Negative [facility] BLOOD NEG NORMAL: Negative [facility] Leukocyte esterase [Presence] in Urine by Test strip NEG MILAGROS L: Negative [facility] Urobilinogen [Mass/volume] in Urine by Test strip NOR less vansesa n 1.0 mg/dL [facility] MICROSCOPIC Not Indicate [facility] ospital ID Date Data Source [id number] 03/09/2020 07:38:00 PM EDT [facility] Name Value Range Interpretation Code Description Data Giovana rce(s) Supporting Document(s) COMPREHENSIVE METABOLIC PANEL [facility] COMPREHENSIVE METABOLIC PANEL Sodium [Moles/volume] in Serum or Plasma 142 mEq/L 134 - 153 [facility] Potassium [Moles/volume] in Serum or Plasma 3.8 mEq/L 3.6 - 5.0 [facility] Chloride [Moles/volume] in Serum or Plasma 106 mEq/L 98 - 107 [facility] Carbon dioxide, total [Moles/volume] in Serum or Plasma 21 MEQ/L 22 - 30 L [facility] Glucose [Mass/volume] in Serum or Plasma 118 MG/DL 65 - 110 H [facility] BUN 11 MG/DL 7 - 21 [facility] Creatinine [Mass/volume] in Serum or Plasma 0.9 MG/DL 0.7 - 1.5 [facility] BUN/CREAT 12 8 - 27 [facility] al Protein [Mass/volume] in Serum or Plasma 7.8 G/DL 6.3 - 8.2 [facility] Albumin [Mass/volume] in Serum or Plasma 4.4 G/DL 3.9 - 5.0 [facility] Globulin [Mass/volume] in Serum by calculation 3.4 GM/DL 2.4 - 3.2 H [facility] A/G RATIO 1.3 0.8 - 2.0 [facility] Calcium [Mass/volume] in Serum or Plasma 9.2 MG/DL 8.4 - 10.2 [facility] Bilirubin.total [Mass/volume] in Serum or Plasma <0.7 MG/DL 0.2 - 1.3 [facility] Alkaline phosphatase [Enzymatic activity/volume] in Serum or Plasma 98 U/L 38 - 126 [facility] Aspartate aminotransferase [Enzymatic activity/volume] in Serum or Plasma 20 U/L 5 - 40 [facility] Alanine aminotransferase [Enzymatic activity/volume] in Seru m or Plasma 32 U/L 7 - 56 [facility] Anion gap 3 in Serum or Plasma 15.0 mmol/L 8.0 - 16.0 [facility] AGE 29 yrs [facility] Hospit al NON-AA GFR >60 mL/min [facility] Hosp ital AFR AMER GFR >60 mL/min [facility] Male GFR In terprentation 20-49 [...] >32 mL/min Normal ID Date Data Source [id number] 03/09/2020 07:35:00 PM EDT [facility] Name Value Range Interpretation Code Description Data Giovana rce(s) Supporting Document(s) Lipase [Enzymatic activity/volume] in Serum or Plasma 39 U/L 13 - 60 [facility] ID Date Data Source [id number] 03/09/2020 07:19:00 PM EDT [facility] Name Value Range Interpretation Code Description Data Giovana rce(s) Supporting Document(s) Lactate [Moles/volume] in Serum or Plasma 3.4 MMOL/L 0.2 - 2.2 H [facility] ID Date Data Source [id number] 03/09/2020 07:17:00 PM EDT [facility] Name Value Range Interpretation Code Description Data Giovana rce(s) Supporting Document(s) CBC W/AUTOMATED DIFF [facility] COMPLETE BLOOD COUNT Leukocytes [#/volume] in Blood by Automated count 11.1 10^3/uL 4.2 - 11.0 H [facility] Erythrocytes [#/volume] in Blood by Automated count 5.71 10^6/uL 4. 50 - 6.30 [facility] Hemoglobin [Mass/volume] in Blood 16.4 g/dL 14.0 - 16.0 H [facility] Hematocrit [Volume Fraction] of Blood by Automated count 51.4 % 4 1.0 - 51.0 H [facility] Erythrocyte mean corpuscular volume [Entitic volume] by Auto mated count 90.0 fL 80.0 - 94.0 [facility] Erythrocyte mean corpuscular hemoglobin [Entitic mass] by Automated count 28.7 pg 27.0 - 34.0 [facility] Erythrocyte mean corpuscular hemoglobin concentration [Mass/volume] by Automated count 31.9 g/dL 31.0 - 36.0 [facility] Erythrocyte distribution width [Ratio] by Automated count 14.1 % 11.5 - 14.8 [facility] Platelets [#/volume] in Blood by Automated count 209 10^3/uL 150 - 45 0 [facility] Platelet mean volume [Entitic volume] in Blood by Automated count 9.0 fL 7.4 - 10.4 [facility] Neutrophils/100 leukocytes in Blood by Automated count 71.7 % 37. 0 - 80.0 [facility] Lymphocytes/100 leukocytes in Blood by Manual count 16.6 % 25.0 - 40.0 L [facility] Monocytes/100 leukocytes in Blood by Automated count 5.9 % 3.0 - 8.0 [facility] Eosinophils/100 leukocytes in Blood by Automated count 5.1 % 0.0 - 7.0 [facility] Basophils/100 leukocytes in Blood by Automated count 0.3 % 0.0 - 2.0 [facility] %IG 0.4 % 0.0 - 0.0 H [facility] al %NRBC 0.0 % 0.0 - 0.0 [facility] al Neutrophils [#/volume] in Blood by Automated count 7.98 10^3/uL 2.00 - 6.90 H [facility] Lymphocytes [#/volume] in Blood by Automated count 1.85 10^3/uL 0.60 - 3.40 [facility] Monocytes [#/volume] in Blood by Automated count 0.66 10^3/uL 0.00 - 0.90 [facility] Eosinophils [#/volume] in Blood by Automated count 0.57 10^3/uL 0.00 - 0.70 [facility] Basophils [#/volume] in Blood by Automated count 0.03 10^3/uL 0.00 - 0.20 [facility] #IG 0.04 10^3/uL 0.00 - 0.10 [facility] #NRBC 0.00 10^3/uL 0.00 - 0.00 [facility] MANUAL DIFF NOT INDICATED [facility] RBC MORPH NOT INDICATED [facility] Procedure Social History Code Duration Value Status Description Data Source(s ) Alcohol intake 03/23/2021 12:00:00 AM EDT Current non-d roscoe of alcohol (finding) completed Current non-drinker of alcohol (finding) [facility] Tobacco use and exposure 03/23/2021 12:00:00 AM EDT Never used co mpleted Never used [facility] Smoking 03/23/2021 12:00:00 AM EDT Never smoker completed Never s moker [facility] Alcohol intake 02/20/2021 12:00:00 AM EDT Current non-d roscoe of alcohol (finding) completed Current non-drinker of alcohol (finding) [facility] Alcohol intake 02/14/2021 12:00:00 AM EDT Current non-d roscoe of alcohol (finding) completed Current non-drinker of alcohol (finding) [facility] Alcohol intake 01/30/2021 12:00:00 AM EDT Current non-d roscoe of alcohol (finding) completed Current non-drinker of alcohol (finding) [facility] Alcohol intake 01/09/2021 12:00:00 AM EDT Current non-d roscoe of alcohol (finding) completed Current non-drinker of alcohol (finding) [facility] Alcohol intake 12/26/2020 12:00:00 AM EDT Current non-d roscoe of alcohol (finding) completed Current non-drinker of alcohol (finding) [facility] 12/12/2020 12:00:00 AM EDT Denies Smoking completed Aakash mcintosh Smoking MEDENT ([facility], ) Alcohol intake 11/28/2020 12:00:00 AM EDT Current non-d roscoe of alcohol (finding) completed Current non-drinker of alcohol (finding) [facility] Smoking 10/30/2020 12:00:00 AM EDT Patient has never smoked co mpleted Patient has never smoked [facility] ([facility]) Alcohol intake 06/28/2020 12:00:00 AM EST Current non-d roscoe of alcohol (finding) completed Current non-drinker of alcohol (finding) [facility] Alcohol intake 06/06/2020 12:00:00 AM EST Current non-d roscoe of alcohol (finding) completed Current non-drinker of alcohol (finding) [facility] Alcohol intake 05/09/2020 12:00:00 AM EDT Current non-d roscoe of alcohol (finding) completed Current non-drinker of alcohol (finding) [facility] Alcohol intake 04/26/2020 12:00:00 AM EDT Current non-d roscoe of alcohol (finding) completed Current non-drinker of alcohol (finding) [facility] Vital Signs ID Date Data Source UNK Name Value Range Interpretation Code Description Data Source(s) Body weight 381.8 [lb_av] 381.8 [lb_av] eCW1 ([facility]) Body height 71 [in_i] 71 [in_i] eCW1 (Count includes the [facility]) Body mass index (BMI) [Ratio] 53.24 kg/m2 53.24 kg/m2 W1 ([facility]) Heart rate 107 /min 107 /min W1 ([facility]) Respiratory rate 18 /min 18 /min W1 ([facility]) Body temperature 97.0 [degF] 97.0 [degF] eCW1 ( [facility]) Systolic blood pressure 128 mm[Hg] 128 mm[Hg] e CW1 ([facility]) Diastolic blood pressure 88 mm[Hg] 88 mm[Hg] eCW1 ([facility]) Blaine body weight 172 [lb_av] 172 [lb_av] MARLYEN T ([facility], ) Body weight 175.543 kg 175.543 kg MARLYENT ([facility], ) Body surface area Derived from formula 2.79 m2 2.79 m2 MADDISON ([facility], ) Diastolic blood pressure 90 mm[Hg] 90 mm[Hg] MEDROSALIND ([facility], ) Systolic blood pressure 130 mm[Hg] 130 [facility]Hg] [facility] Heart rate 103 /min 103 /min [facility] ([facility]) Oxygen saturation in Arterial blood by Pulse oximetry 98 % 98 % [facility] ([facility]) Body height 71 [in_i] 71 [in_i] [facility] ([facility]) 5'11" Body weight 387.00 [lb_av] 387.00 [lb_av] MEDEN T ([facility]) Body mass index (BMI) [Ratio] 54.0 kg/m2 54.0 k g/m2 [facility] ([facility]) Systolic blood pressure 138 mm[Hg] 138 mm[Hg] [facility] Body height 71 [in_i] 71 [in_i] [facility] ([facility]) 5'11" Diastolic blood pressure 74 mm[Hg] 74 mm[Hg] [facility] ([facility]) Body weight 390.25 [lb_av] 390.25 [lb_av] [facility] Body mass index (BMI) [Ratio] 54.4 kg/m2 54.4 k g/m2 [facility] ([facility]) Blaine body weight 172 [lb_av] 172 [lb_av] [facility] Body weight 177.017 kg 177.017 kg [facility] ([facility]) Body surface area Derived from formula 2.80 m2 2.80 m2 [facility] ([facility]) Body weight 394.00 [lb_av] 394.00 [lb_av] MEDEN T ([facility]) Body height 71 [in_i] 71 [in_i] [facility] ([facility] 5'11" Body mass index (BMI) [Ratio] 54.9 kg/m2 54.9 k g/m2 [facility] Heart rate 79 /min 79 /min [facility] ([facility]) Systolic blood pressure--sitting 103 mm[Hg] 103 mm[Hg] MEDENT ([facility]) Omron, XL Cuff, Ra Diastolic blood pressure--sitting 71 mm[Hg] 71 mm[Hg] MEDENT ([facility]) [employer]ron, XL Cuff, Ra Body weight 402 [lb_av] 402 [lb_av] [facility] Body height 71 [in_i] 71 [in_i] eCW1 (Count includes the [facility]) Body mass index (BMI) [Ratio] 56.06 kg/m2 56.06 kg/m2 eCW1 ([facility]) Heart rate 103 /min 103 /min eCW1 ([facility]) Respiratory rate 18 /min 18 /min eCW1 ([facility]) Body temperature 97.3 [degF] 97.3 [degF] eCW1 ( [facility]) Systolic blood pressure 128 mm[Hg] 128 mm[Hg] e CW1 ([facility]) Diastolic blood pressure 86 mm[Hg] 86 mm[Hg] eCW1 ([facility]) Body weight 384 [lb_av] 384 [lb_av] [facility]CW[facility] Body height 71 [in_i] 71 [in_i] eCW1 (Count includes the [facility]) Body mass index (BMI) [Ratio] 53.55 kg/m2 53.55 kg/m2 eCW1 ([facility]) Heart rate 111 /min 111 /min eCW1 ([facility]) Respiratory rate 18 /min 18 /min eCW1 ([facility]) Body temperature 97.3 [degF] 97.3 [degF] eCW1 ( [facility]) Systolic blood pressure 126 mm[Hg] 126 mm[Hg] e CW1 ([facility]) Diastolic blood pressure 88 mm[Hg] 88 mm[Hg] eCW1 ([facility]) Systolic blood pressure 120 mm[Hg] 120 mm[Hg] M AMY ([facility], ) Diastolic blood pressure 60 mm[Hg] 60 mm[Hg] MEDENT ([facility], ) Body height 71 [in_i] 71 [in_i] MEDENT ([facility], ) 5'11" Body weight 407.00 [lb_av] 407.00 [lb_av] MEDEN T ([facility]) Body mass index (BMI) [Ratio] 56.8 kg/m2 56.8 k g/m2 [facility] ([facility]) Blaine body weight 172 [lb_av] 172 [lb_av] MEDEN T ([facility]) Body weight 184.615 kg 184.615 kg [facility] ([facility]) Body surface area Derived from formula 2.85 m2 2.85 m2 [facility] ([facility]) Body weight 406 [lb_av] 406 [lb_av] eCW1 [facility] Body height 71 [in_i] 71 [in_i] eCW1 (Count includes the [facility]) Body mass index (BMI) [Ratio] 56.62 kg/m2 56.62 kg/m2 eCW1 ([facility]) Heart rate 112 /min 112 /min eCW1 ([facility]) Respiratory rate 18 /min 18 /min eCW1 ([facility]) Body temperature 96.7 [degF] 96.7 [degF] eCW1 ( [facility]) Systolic blood pressure 116 mm[Hg] 116 mm[Hg] e CW1 ([facility]) Diastolic blood pressure 80 mm[Hg] 80 mm[Hg] eCW1 ([facility]) Systolic blood pressure 154 mm[Hg] 154 mm[Hg] M EDENT ([facility] [facility] Diastolic blood pressure 88 mm[Hg] 88 mm[Hg] MEDENT ([facility]) Body height 71 [in_i] 71 [in_i] [facility] 5'11" Body weight 409.12 [lb_av] 409.12 [lb_av] MEDEN T ([facility]) Body mass index (BMI) [Ratio] 57.1 kg/m2 57.1 k g/m2 [facility] ([facility]) [place] body weight 172 [lb_av] 172 [lb_av] MEDEN T ([facility]) Body weight 185.579 kg 185.579 kg [facility] ([facility]) Body surface area Derived from formula 2.86 m2 2.86 m2 [facility] ([facility]) Systolic blood pressure 122 mm[Hg] 122 mm[Hg] M EDENT ([facility]) Diastolic blood pressure 80 mm[Hg] 80 mm[Hg] [facility] ([facility]) Heart rate 99 /min 99 /min [facility] ([facility]) Oxygen saturation in Arterial blood by Pulse oximetry 99 % 99 % [facility] ([facility]) Body temperature 96.8 [degF] 96.8 [degF] [facility] ([facility]) Body height 69 [in_i] 69 [in_i] [facility] ([facility]) 5'9" Body weight 406.00 [lb_av] 406.00 [lb_av] [facility] Body mass index (BMI) [Ratio] 59.9 kg/m2 59.9 k g/m2 [facility] ([facility]) [place] body weight 160 [lb_av] 160 [lb_av] [facility] Body weight 184.162 kg 184.162 kg [facility] ([facility]) Body surface area Derived from formula 2.79 m2 2.79 m2 [facility] ([facility]) Body weight 411 [lb_av] 411 [lb_av] [facility] Body height 71 [in_i] 71 [in_i] eCW1 (Count includes the [facility]) Body mass index (BMI) [Ratio] 57.32 kg/m2 57.32 kg/m2 W1 ([facility]) Heart rate 101 /min 101 /min eCW1 ([facility]) Respiratory rate 18 /min 18 /min eCW1 ([facility]) Body temperature 97.1 [degF] 97.1 [degF] eCW1 ( [facility]) Systolic blood pressure 132 mm[Hg] 132 mm[Hg] e CW1 ([facility]) Diastolic blood pressure 86 mm[Hg] 86 mm[Hg] eCW1 ([facility]) Body weight 414 [lb_av] 414 [lb_av] eCW1 [facility] Body height 71 [in_i] 71 [in_i] eCW1 (Count includes the [facility]) Body mass index (BMI) [Ratio] 57.73 kg/m2 57.73 kg/m2 eCW1 ([facility]) Heart rate 115 /min 115 /min eCW1 ([facility]) Respiratory rate 19 /min 19 /min eCW1 ([facility]) Body temperature 96.4 [degF] 96.4 [degF] eCW1 ( [facility]) Systolic blood pressure 138 mm[Hg] 138 mm[Hg] e CW1 ([facility]) Diastolic blood pressure 86 mm[Hg] 86 mm[Hg] eCW1 ([facility]) Body weight 426 [lb_av] 426 [lb_av] eCW1 [facility] Body height 71 [in_i] 71 [in_i] eCW1 ([facility] includes the [facility]) Body mass index (BMI) [Ratio] 59.41 kg/m2 59.41 kg/m2 eCW1 ([facility]) Systolic blood pressure 136 mm[Hg] 136 mm[Hg] e CW1 ([facility]) Diastolic blood pressure 82 mm[Hg] 82 mm[Hg] eCW1 ([facility]) Body weight 412 [lb_av] 412 [lb_av] eCW1 [facility] Body height 71 [in_i] 71 [in_i] eCW1 ([facility] includes the [facility]) Body mass index (BMI) [Ratio] 57.46 kg/m2 57.46 kg/m2 eCW1 ([facility]) Systolic blood pressure 138 mm[Hg] 138 mm[Hg] e CW1 ([facility]) Diastolic blood pressure 92 mm[Hg] 92 mm[Hg] eCW1 ([facility]) ID Date Data Source [id number] 02/22/2021 01:50:[address] [facility] Value Range Interpretation Code Description Data Source(s) TRANSFER FROM [facility] ID Date Data Source [id number] 02/22/2021 12:00:36 PM EDT [facility] Name Value Range Interpretation Code Description Data Source(s) WEIGHT RECORDED [address] [facility] Body height Measured 71 in 71 in [facility] ID Date Data Source [id number] 02/02/2021 10:26:[address] [facility] Value Range Interpretation Code Description Data Source(s) WEIGHT RECORDED [address] [facility] Body height Measured 70.98 in 70.98 in [facility] ID Date Data Source [id number] 11/29/2020 01:16:[address] [facility] Value Range Interpretation Code Description Data Source(s) WEIGHT RECORDED [address] [facility] Body height Measured 70.98 in 70.98 in [facility] ID Date Data Source [id number] 06/09/2020 09:34:[address] [facility] Value Range Interpretation Code Description Data Source(s) WEIGHT RECORDED 417.[address] [facility] Body height Measured 70.98 in 70.98 in [facility] ID Date Data Source [id number] 05/09/2020 02:17:[address] [facility] Value Range Interpretation Code Description Data Source(s) WEIGHT RECORDED [address] [facility] Body height Measured 70.98 in 70.98 in [facility] Patient Treatment Plan of Care Planned Activity Planned Date Details Description Data Source (s) Ibuprofen 600 MG 04/18/2021 01:00:00 AM EDT [facility]) Vitamin D-2 50,000 U(1.25 mg) 04/18/2021 01:00:00 AM EDT [facility]) Topiramate 200 MG 04/18/2021 01:00:00 AM [facility] oxyCODONE HCl 5 MG 04/18/2021 01:00:00 AM EDT [facility] ([facility]) [facility] Omeprazole 20 MG 04/18/2021 01:00:00 AM EDT [facility] ([facility]) Montelukast Sodium 10 MG 04/18/2021 01:00:00 AM EDT [facility] ([facility]) Mirtazapine 15 MG 04/18/2021 01:00:00 AM EDT [facility] ([facility]) Methocarbamol 750 MG 04/18/2021 01:00:00 AM EDT [facility]) Keppra 500 MG 04/18/2021 01:00:00 AM EDT [facility] ([facility]) AirDuo Digihaler 232-14 MCG/ACT 04/18/2021 01:00:00 AM EDT [facility] ([facility]) Desvenlafaxine ER 100 MG 04/18/2021 01:00:00 AM EDT [facility]) Claritin 10 MG 04/18/2021 01:00:00 AM EDT [facility]) Aspirin 325 MG 04/18/2021 01:00:00 AM EDT [facility]) SM Pain Reliever 325 MG 04/18/2021 01:00:00 AM EDT [facility]) Doxycycline Monohydrate 100 MG 04/18/2021 01:00:00 AM EDT [facility]) Sucralfate 1 GM 04/18/2021 01:00:00 AM EDT [facility]) Triamcinolone Acetonide 0.1 % 04/18/2021 01:00:00 AM EDT [facility]) Trospium Chloride 20 MG 04/18/2021 01:00:00 AM EDT [facility]) POLYETHYLENE GLYCOL 3350 142 MG/ML Oral Solution 02/07/2021 12:00:0 0 AM [facility] Docusate Sodium 100 MG Oral Capsule 02/06/2021 12:00:00 AM [facility] sennosides, LONG TERM 8.6 MG Oral Tablet 02/06/2021 12:00:00 AM [facility] Methocarbamol 750 MG Oral Tablet 02/06/2021 12:00:00 AM [facility] Aspirin 325 MG Delayed Release Oral Tablet 02/06/2021 12:00:00 AM E [facility] Oxycodone Hydrochloride 5 MG Oral Tablet 02/06/2021 12:00:00 AM [facility] Magnesium Hydroxide 80 MG/ML Oral Suspension 02/03/2021 10:41:51 AM [facility] Diphenhydramine Hydrochloride 25 MG Oral Capsule 01/31/2021 04:10:4 4 PM [facility] Bisacodyl 10 MG Rectal Suppository 01/30/2021 05:03:08 PM [facility]. Devices (DURABLE MEDICAL EQUIPMENT SEE SIG) XX M [facility] 01/18/2021 12:00:00 AM [facility] ospital [facility]. Devices (DURABLE MEDICAL EQUIPMENT SEE SIG) XX M [facility] 01/17/2021 12:00:00 AM [facility] ospital trospium chloride 20 MG Oral Tablet 01/10/2021 12:00:00 AM [facility] 24 HR mirabegron 25 MG Extended Release Oral Tablet 01/10/20 21 12:00:00 AM [facility] Nystatin 100 UNT/MG Topical Powder 11/28/2020 12:00:00 AM [facility] Phenazopyridine hydrochloride 200 MG Delayed Release O ral Tablet 11/28/2020 12:00:00 AM [facility] ospital Acetaminophen 325 MG Oral Tablet [Tylenol] 09/23/2020 12:00:[address] eCW1 ([facility]) MiraLax Mix-In [place] 17 GM 09/23/2020 12:00:00 AM EST eCW1 ([facility]) [facility]. Devices (DURABLE MEDICAL EQUIPMENT SEE SIG) XX M [facility] 06/28/2020 12:00:00 AM [facility] ospital Clindamycin 0.01 MG/MG Topical Gel 06/12/2020 12:00:00 AM EST eCW1 ([facility]) Cephalexin 500 MG Oral Capsule 06/06/2020 01:30:00 PM [facility] lidocaine (XYLOCAINE) 2 % urojet 20 mL 06/06/2020 01:30:00 PM [facility] Doxycycline Monohydrate 50 MG Oral Capsule 05/15/2020 12:00:00 AM E DT eCW1 ([facility]) ciclopirox 10 MG/ML Medicated Shampoo 05/15/2020 12:00:00 AM EDT eCW1 ([facility]) alclometasone dipropionate 0.5 MG/ML Topical Cream 05/15/2020 12 :00:00 AM EDT eCW1 ([facility]) Doxycycline Monohydrate 50 MG Oral Capsule 05/15/2020 12:00:00 AM E DT eCW1 ([facility]) ciclopirox 10 MG/ML Medicated Shampoo 05/15/2020 12:00:00 AM EDT eCW1 ([facility]) alclometasone dipropionate 0.5 MG/ML Topical Cream 05/15/2020 12 :00:00 AM EDT eCW1 ([facility]) Doxycycline Monohydrate 50 MG Oral Capsule 05/15/2020 12:00:00 AM E DT eCW1 ([facility]) ciclopirox 10 MG/ML Medicated Shampoo 05/15/2020 12:00:00 AM EDT eCW1 ([facility]) alclometasone dipropionate 0.5 MG/ML Topical Cream 05/15/2020 12 :00:00 AM EDT eCW1 ([facility]) alclometasone dipropionate 0.5 MG/ML Topical Cream 05/15/2020 12 :00:00 AM EDT eCW1 ([facility]) Doxycycline Monohydrate 50 MG Oral Capsule 05/15/2020 12:00:00 AM E DT eCW1 ([facility]) ciclopirox 10 MG/ML Medicated Shampoo 05/15/2020 12:00:00 AM EDT eCW1 ([facility]) Desvenlafaxine Succinate ER 100 MG Oral Tablet Extended Release 24 Hour (PRISTIQ) 04/07/2020 12:00:00 AM EDT [facility] Docusate Sodium 100 MG Oral Capsule [DOK] 04/07/2020 12:00:00 AM [facility] Nystatin 100 UNT/MG Topical Powder 03/27/2020 12:00:00 AM [facility] Methocarbamol 750 MG Oral Tablet 06/09/2019 12:00:00 AM [facility] Misc. Devices (DURABLE MEDICAL EQUIPMENT SEE SIG) MISC 10/09/2018 12:00:00 AM [facility] ospital Doxycycline Monohydrate 100 MG Oral Capsule 10/07/2018 12:00:00 AM [facility] 7 ACTUAT umeclidinium 0.0625 MG/ACTUAT Dry Powder Inha ler [Incruse] 09/24/2018 12:00:00 AM [facility] ospital gabapentin 100 MG Oral Capsule 03/03/2018 12:00:00 AM [facility] maalox/lidocaine/diphenhydrAMINE (RADIATION MIXTURE) 1 :1:1 oral suspension 05/29/2017 12:00:00 AM [facility] Nystatin 533320 UNT/ML Topical Cream 09/27/2015 12:00:00 AM [facility] Vitamin B 12 0.1 MG Oral Tablet [facility] Docusate Sodium 100 MG Oral Capsule [facility] Methocarbamol 750 MG Oral Tablet [facility] Ondansetron 4 MG Oral Tablet [facility] Albuterol Sulfate HFA 108 (90 Base) MCG/ ACT Inhalation Aerosol Solution (PROVENTIL HFA;VENTOLIN HFA) [facility] Ibuprofen 600 MG Oral Tablet [facility] Albuterol 0.83 MG/ML Inhalant Solution [facility] Hydrochlorothiazide 25 MG / Lisinopril 20 MG Oral Tablet [facility] formoterol fumarate 0.01 MG/ML Inhalant Solution [facility] Gemfibrozil 600 MG Oral Tablet [facility] Biotin 10 MG Oral Tablet [facility] Vitamin B 12 0.1 MG Oral Tablet [facility] POLYETHYLENE GLYCOL 3350 142 MG/ML Oral Solution [facility] 14 ACTUAT fluticasone furoate 0.1 MG/ACT UAT / vilanterol 0.025 MG/ACTUAT Dry Powder Inhaler [facility] Sumatriptan 100 MG Oral Tablet [facility] gabapentin 100 MG Oral Capsule [facility] Melatonin 3 MG Oral Tablet U [facility] doxycycline hyclate 50 MG Oral Capsule [facility]
[2021-05-09 13:48] LABS: BASO % 0.3 % (0.0-1.0); EOS # 0.1 10^3/uL (0.0-0.5); EOS % 1.2 % (0.0-3.0); HEMATOCRIT 50.1 % (42.0-52.0); HEMOGLOBIN 15.8 g/dl (13.5-17.5); LYMPH # 1.5 10^3/uL (1.5-5.0); LYMPH % 12.7 % (24.0-44.0); MEAN CORPUSCULAR HEMOGLOBIN 27.8 pg (27.0-33.0); MEAN CORPUSCULAR HGB CONC 31.5 g/dl (32.0-36.5); MONO # 0.7 10^3/uL (0.0-0.8); MONO % 6.2 % (2.0-8.0); NEUTROPHILS # 9.1 10^3/uL (1.5-8.5); NEUTROPHILS % 79.2 % (36.0-66.0); PLATELET COUNT, AUTOMATED 234 10^3/uL (150-450); RED BLOOD COUNT 5.69 10^6/uL (4.30-6.10); WHITE BLOOD COUNT 11.4 10^3/uL (4.0-10.0)
[2021-05-09] MEDS ORDERED: ONDA4TAB6 PO (14:39)
[2021-05-09 14:46] VITALS: BP 144/82
== END 2021-05-09 14:54 | disposition home or self-care (01) ==
LOC: M ED 10:18
DX: K29.70 Gastritis, unspecified, without bleeding (principal); R07.9 Chest pain, unspecified; K21.9 Gastro-esophageal reflux disease without esophagitis; Z88.8 Allergy status to other drugs, medicaments and biological substances; Z79.899 Other long term (current) drug therapy
CPT/HCPCS: 36415; 80047; 85025; 99284; Q0162

== ENCOUNTER → 2021-05-17 | Outpatient (REF) | payer OTHER ==
[~2021-05-17] MED LIST changes: -DOXY1CAP60 PO; +DOXY50CA51 PO
[2021-05-17 17:31] LABS: APPEARANCE, URINE CLEAR (CLEAR); BACTERIA, URINE AUTO NEGATIVE (NEGATIVE); BILIRUBIN, URINE AUTO NEGATIVE (NEGATIVE); BLOOD, URINE BLOOD NEGATIVE (NEGATIVE); COLOR, URINE YELLOW (YELLOW); GLUCOSE, URINE (UA) AUTO NEGATIVE (NEGATIVE); KETONE, URINE AUTO NEGATIVE (NEGATIVE); LEUKOCYTE ESTERASE, URINE AUTO NEGATIVE (NEGATIVE); MUCUS, URINE SMALL (NEGATIVE); NITRITE, URINE AUTO NEGATIVE (NEGATIVE); PROTEIN, URINE AUTO NEGATIVE (NEGATIVE); RBC, URINE AUTO 0 /HPF (0-3); SPECIFIC GRAVITY URINE AUTO 1.015 (1.002-1.035); SQUAMOUS EPITHELIAL CELL UR AU 4 /HPF (0-6); UROBILINOGEN, URINE AUTO 0.2 mg/dL (0.0-2.0); WBC, URINE AUTO 4 /HPF (0-3)
== END ==
LOC: M SFHCPLAZ 17:04
PROVIDERS: ATTEND Student in an Organized Health Care Education/Training Program
DX: N30.00 Acute cystitis without hematuria (principal)

== ENCOUNTER 2021-06-02 15:23 | Emergency (ER) | payer OTHER ==
[~2021-06-02] VITALS: Ht 180.3 cm; Wt 170.5 kg
[2021-06-02 15:24] VITALS: BP 131/73
--- OUTSIDE RECORDS SUMMARY | 2021-06-02 15:32 | CCD ---
Author Author [facility] Organization [facility] Address Unknown Phone Unavailable Care Team Providers Care [place] Attorney Name Role Phone Ryan Dixon Unavailable PROBLEMS Type Condition ICD9-CM Code [id number] Code Onset Dates Condition S tatus W/U Status Risk SNOMED Code Notes Problem BMI 50.0-59.9, adult Z68.43 Active confirmed 627838620 Problem Mild intermittent asthma without complication J45. 20 Active confirmed 329981377 Problem Hyperlipidemia due to dietary fat intake E78.49 Active confirmed 135978416 Problem Gastritis without bleeding, unspecified chronicity, unspecified gastritis type K29.70 Active confirmed 4974900 Problem Seizure disorder G40.909 Active confirmed 12 6079041 Problem Obstructive sleep apnea G47.33 Active confirmed 45623968 Problem Primary osteoarthritis of both knees M17.0 Act rebekah confirmed 258666789 Problem Constipation, unspecified constipation type K59.00 Active confirmed 72661051 ALLERGIES Allergen (clinical drug ingredient) Drug/Non Drug Allergy do cumented on EMR Reaction Allergy Type Onset Date Status naproxen Naprosyn(NDC Code:[address]-56) Nausea/Vomiting Drug Ben rgy Active phenytoin Dilantin Rash Drug Allergy Active amoxicillin Amoxicillin(NDC Code:[address]-48) RASH Drug Aller gy Active codeine Codeine Sulfate(NDC Code:[address]-58) Nausea/Vomiting Dr rachell Allergy Active ENCOUNTERS from 1988 to 2021-05-23 Encounter Location Date Provider Diagnosis [address] [phone] [place] [address] Apr, Ryan Dixon IMMUNIZATIONS Vaccine Route Administration Date Status TDAP 0.5mL Boostrix IM Intramuscular May 17, 2021 Administere d Influenza 18 yrs & older Flublok IM Intramuscular May 17, 2021 Administered Influenza 6mo & up Fluzone IM Intramuscular May 25, 2013 Admi nistered SOCIAL HISTORY Sex Assigned At : Social History Observation Description Sex Assigned At Unknown REASON FOR REFERRAL No Information VITAL SIGNS No information MEDICATIONS Medication SIG (Take, Route, Frequency, Duration) Notes Start Da te End Date Status MiraLax Mix-In [place] 17 GM 1 packet mixed with 8 ounces of fluid Orally Once a day for 30 day(s) Aug, Unknown Ciclopirox 1 % 1 application Externally Thr ee times a Week to scalp and sow area for 30 days Not-Taking Incruse Ellipta 62.5 MCG/INH 1 puff Inhalation Once a day Unknown Clindamycin Phosphate 1 % 1 application Externally Twice a day for 30 days Not-Taking Nystatin 610342 UNIT/GM apply Externally groin Twice a day for 1 month Dec, Unknown MiraLax - 1 packet mixed with 8 ounces of fluid Or ally Once a day for 30 day(s) Not-Taking Keppra 500 MG 1 tablet Orally every 12 hrs for 30 days Unknown Vitamin D (Ergocalciferol) 52668 UNIT 1 capsule Orally weekly fo r 90 days Aug, Unknown Pristiq 50 mg 1 tablet Orally Once a day for 30 day(s) Unknown Ibuprofen 600 MG 1 tablet with food or milk a s needed Orally Three times a day for 15 days Unknown Vitamin B12 100 MCG as directed Orally Unknown Breo Ellipta 100-25 MCG/INH 1 puff Inhalation Once a day Unknown Zofran 4 MG 1 tablet Orally Once a day for 30 day(s) Unknown Tylenol 325 MG 1 tablet as needed Orally every 4 hrs for 90 days Aug, Unknown Cetirizine HCl 10 mg 1 tablet as needed Orally Once a day for 30 day( s) Unknown Montelukast Sodium 10 mg 1 tablet Orally at bedtime for 30 day(s) Active PriLOSEC 20 mg 1 capsule Orally twice daily for 30 day(s) Jan, Unknown Topamax 200 MG 1 tablet Orally BID for 30 Days Unknown Doxycycline Monohydrate 100 MG 1 capsule Orally Twice a day for 30 da y(s) Unknown Ciprofloxacin HCl 500 MG 1 tablet Orally every 12 hrs for 7 day( s) Apr, Active Imitrex 100 MG 1 tablet as needed Orally Twice a day Unknown Carafate 1 GM 1 tablet on an empty stomach Orally once daily November, Unknown Biotin 1000 MCG 1 tablet Orally Once a day for 30 day(s) Unknown Alclometasone Dipropionate 0.05 % 1 application Sales [employer] Service Associate ally Twice a day for TEN DAYS ONLY to dry skin rash on face for 10 days Unknown Vitamin D-3 5000 UNIT 2 TABS Orally QWEEK Not-Taking Albuterol Sulfate (2.5 MG/3ML) 0.083% 3 ml Inhalation Three times a day as needed for 1 month Unknown PROCEDURES No Information RESULTS No Results REASON FOR VISIT [facility] MEDICAL (GENERAL) HISTORY Type Description Date Medical [...] Medication Name Sig Start Date Stop Date Ciprofloxacin HCl 500 MG 1 tablet Orally every 12 hrs for 7 day( s) Apr, Montelukast Sodium 10 mg 1 tablet Orally at bedtime for 30 day(s ) Next Appt Details Provider Name:La Reeves, 2021-06-01 0 8:30:00 AM, [address] [facility], , [place], [address], Provider Name:Ryan Dixon, 2021-05-28 9 01:45:00 PM, [address] [facility] [address], , [place], [address], Insurance Providers Payer Name Payer Address Payer Phone Insured Name Patient Relati onship to Insured Coverage Start Date Coverage End Date [facility] [employer] [employer] [facility] [address] [facility] [phone] NICK MEEK self
--- OUTSIDE RECORDS SUMMARY | 2021-06-02 15:33 | CCD ---
Author Author [facility] Organization [facility] Address Unknown Phone Unavailable Care Team Providers Care Mobile Device Engineer Name Role Phone Ryan Dixon Unavailable PROBLEMS Type Condition ICD9-CM Code [id number] Code Onset Dates Condition S tatus W/U Status Risk SNOMED Code Notes Problem BMI 50.0-59.9, adult Z68.43 Active confirmed 555576564 Problem Primary osteoarthritis of both knees M17.0 Act rebekah confirmed 212341278 Problem Constipation, unspecified constipation type K59.00 Active confirmed 78092653 Problem Mild intermittent asthma without complication J45. 20 Active confirmed 732358282 Problem Seizure disorder G40.909 Active confirmed 12 9823243 Problem Obstructive sleep apnea G47.33 Active confirmed 52658650 Problem Hyperlipidemia due to dietary fat intake E78.49 Active confirmed 418159058 ALLERGIES Allergen (clinical drug ingredient) Drug/Non Drug Allergy do cumented on EMR Reaction Allergy Type Onset Date Status naproxen Naprosyn(NDC Code:[address]-90) Nausea/Vomiting Drug Ben rgy Active phenytoin Dilantin Rash Drug Allergy Active amoxicillin Amoxicillin(NDC Code:[address]-57) RASH Drug Aller gy Active codeine Codeine Sulfate(NDC Code:[address]-52) Nausea/Vomiting Dr rachell Allergy Active ENCOUNTERS from 1988 to 2021-05-16 Encounter Location Date Provider Diagnosis [address] [phone] [place] [address] 14 Apr, 2021 Ryan Dixon IMMUNIZATIONS Vaccine Route Administration Date Status Influenza 6mo & up Fluzone IM Intramuscular May 25, 2013 Admi nistered SOCIAL HISTORY Sex Assigned At : Social History Observation Description Sex Assigned At Unknown REASON FOR REFERRAL No Information VITAL SIGNS No information MEDICATIONS Medication SIG (Take, Route, Frequency, Duration) Notes Start Da te End Date Status Biotin 1000 MCG 1 tablet Orally Once a day for 30 day(s) Active Imitrex 100 MG 1 tablet as needed Orally Twice a day Active Alclometasone Dipropionate 0.05 % 1 application Machine Wiper ally Twice a day for TEN DAYS ONLY to dry skin rash on face for 10 days Active Ibuprofen 600 MG 1 tablet with food or milk a s needed Orally Three times a day for 15 days Active Keppra 500 MG 1 tablet Orally every 12 hrs for 30 days Active Incruse Ellipta 62.5 MCG/INH 1 puff Inhalation Once a day Active Montelukast Sodium 10 mg 1 tablet Orally at bedtime for 30 day(s) Active MiraLax Mix-In [place] 17 GM 1 packet mixed with 8 ounces of fluid Orally Once a day for 30 day(s) Aug, Active Cetirizine HCl 10 mg 1 tablet as needed Orally Once a day for 30 day( s) Active Carafate 1 GM 1 tablet on an empty stomach Orally once daily November, Active Topamax 200 MG 1 tablet Orally BID for 30 Days Active PriLOSEC 20 mg 1 capsule Orally twice daily for 30 day(s) Jan, Active Clindamycin Phosphate 1 % 1 application Externally Twice a day for 30 days Not-Taking Vitamin D-3 5000 UNIT 2 TABS Orally QWEEK Not-Taking Nystatin 311747 UNIT/GM apply Externally groin Twice a day for 1 month Dec, Active MiraLax - 1 packet mixed with 8 ounces of fluid Or ally Once a day for 30 day(s) Not-Taking Doxycycline Monohydrate 100 MG 1 capsule Orally Twice a day for 30 da y(s) Active Tylenol 325 MG 1 tablet as needed Orally every 4 hrs for 90 days Aug, Active Albuterol Sulfate (2.5 MG/3ML) 0.083% 3 ml Inhalation Three times a day as needed for 1 month Active Breo Ellipta 100-25 MCG/INH 1 puff Inhalation Once a day Active Pristiq 50 mg 1 tablet Orally Once a day for 30 day(s) Active Vitamin B12 100 MCG as directed Orally Active Zofran 4 MG 1 tablet Orally Once a day for 30 day(s) Active Vitamin D (Ergocalciferol) 27579 UNIT 1 capsule Orally weekly fo r 90 days Aug, Active Ciclopirox 1 % 1 application Externally Thr ee times a Week to scalp and sow area for 30 days Not-Taking PROCEDURES No Information RESULTS No Results REASON FOR VISIT mTCM [address] [facility] d/c 05/09 Gastritis MEDICAL (GENERAL) HISTORY Type Description Date Medical [...] Notes Treatment Notes Treatm ent Clinical Notes Apr, Other [id number] 1550: Syrup Maker called pt. Pt reports he is feeling better. Pt reports he needs a referral t Dr. Salazar's office to have a scope done. Pt reports he also has two inguinal hernias that he needs to have fixed. Pt confirmed upcoming appointment. Pt verified current medications and reports he is in need of a refill on sleeping medication that begins with an M. Pt does not have any other questions or concerns. Dallin Natarajan RN. PLAN OF TREATMENT Next Appt Details Provider Name:Earline Bob, 2021-05-17 01: 00:00 PM, [address] [facility] [address] , , [place], [address], Insurance Providers Payer Name Payer Address Payer Phone Insured Name Patient Relati onship to Insured Coverage Start Date Coverage End Date [facility] [address] [facility] [phone] [phone] NICK MEEK self
--- OUTSIDE RECORDS SUMMARY | 2021-06-02 15:36 | CCD ---
Author Author [facility] Organization [facility] Address Unknown Phone Unavailable Care Team Providers Care Graduate Advisor Name Role Phone Erica LAWSON MD Unavailable [...] LAWSON, E PADMAJA WAGNER Unavailable Unavailable LAWSON, Erica GIANG MD Unavailable Unavailable LAWSON, Erica GIANG MD Unavailable Unavailable LAWSON, E PADMAJA WAGNER Unavailable Unavailable LAWSON, E PADMAJA WAGNER Unavailable Unavailable LAWSON, E PADMAJA WAGNER Unavailable Unavailable LAWSON, E PADMAJA WAGNER Unavailable Unavailable LAWSON, E PADMAJA WAGNER Unavailable Unavailable LAWSON, E PADMAJA WAGNER Unavailable Unavailable LAWSON, E PADMAJA WAGNER Unavailable Unavailable LAWSON, E PADMAJA WAGNER Unavailable Unavailable LAWSON, E PADMAJA AWGNER Unavailable Unavailable LAWSON, E PADMAJA WAGNER Unavailable [...] LAWSON, E PADMAJA WAGNER Unavailable Unavailable LAWSON, Erica GIANG MD Unavailable Unavailable LAWSON, E PADMAJA WAGNER Unavailable Unavailable LAWSON, E PADMAJA WAGNRE Unavailable Unavailable LAWSON, E PADMAJA WAGNER Unavailable Unavailable LAWSON, E PADMAJA WAGNER Unavailable Unavailable LAWSON, E PADMAJA WAGNER Unavailable Unavailable LAWSON, E PADMAJA WAGNER Unavailable Unavailable LAWSON, E PADMAJA WAGNER Unavailable Unavailable LAWSON, E PADMAJA WAGNER Unavailable Unavailable LAWSON, E PADMAJA WAGNER Unavailable Unavailable LAWSON, E PADMAJA WAGNER Unavailable Unavailable LAWSON, E PADMAJA WAGNER Unavailable Unavailable LAWSON, E PADMAJA WAGNER Unavailable Unavailable Stephen GEORGES MD Unavailable Unavailable [...] Unavailable Unavailable Kentrell Negrete MD Unavailable Unavailable Kentrell Negrete MD Unavailable Unavailable Kentrell Negrete MD Unavailable Unavailable Kentrell Negrete MD Unavailable Unavailable Kentrell Negrete MD Unavailable Unavailable Kentrell [...] Unavailable Kunnumpurath, F Shannan MD Unavailable Unavailable Miroslava LE Unavailable Unavailable Miroslava LE Unavailable Unavailable Miroslava LE Unavailable Unavailable DEMARTINI, M ADITYA PA Unavailable [...] Unavailable Unavailable AMHITESH ARAUJO MD Unavailable Unavailable AMERHITESH DOUGLAS MD Unavailable Unavailable AMERHITESH DOUGLAS MD Unavailable Unavailable AMERNATHITESH Farah MD Unavailable Unavailable HESTER, LETITIA MD Unavailable [...] Unavailable HESTER, LETITIA MD Unavailable Unavailable HESTER, ELTITIA MD Unavailable Unavailable HESTER, LETITIA MD Unavailable [...] Unavailable Unavailable LETITIA HESTER MD Unavailable Unavailable MANFRED, O MD Unavailable Unavailable MANFRED, O ROBERT WAGNER Unavailable Unavailable MANFRED, O ROBERT WAGNER Unavailable Unavailable MANFRED, O MD Unavailable Unavailable MANFRED, O MD Unavailable Unavailable MANFRED, O MD Unavailable Unavailable MANFRED, O MD Unavailable Unavailable MANFRED, O MD Unavailable Unavailable MANFRED, O MD Unavailable Unavailable MANFRED, O MD Unavailable Unavailable MANFRED, O MD Unavailable Unavailable MANFRED, O MD Unavailable Unavailable MANFRED, O MD Unavailable Unavailable MANFRED, O ROBERT WAGNER Unavailable Unavailable MANFRED, O ROBERT WAGNER Unavailable Unavailable MANFRED, O ROBERT WAGNER Unavailable Unavailable MANFRED, O ROBERT WAGNER Unavailable Unavailable MANFRED, O ROBERT WAGNER Unavailable Unavailable MANFRED, O ROBERT WAGNER Unavailable Unavailable MANFRED, O ROBERT WAGNER Unavailable Unavailable MANFRED, O MD Unavailable Unavailable MANFRED, O MD Unavailable Unavailable MANFRED, O MD Unavailable Unavailable MANFRED, O MD Unavailable Unavailable MANFRED, O MD Unavailable Unavailable MANFRED, O MD Unavailable Unavailable MANFRED, O MD Unavailable Unavailable MANFRED, O MD Unavailable Unavailable MANFRED, O MD Unavailable Unavailable MANFRED, O ROBERT WAGNER [...] Unavailable Unavailable MANFRED, O MD Unavailable Unavailable MANFRED, O MD Unavailable Unavailable MANFRED, O ROBERT WAGNER [...] Unavailable Jonathon SHOOK MD Unavailable Unavailable BOONE, Jonathon GRAHAM MD Unavailable Unavailable Jonathon SHOOK MD Unavailable Unavailable TURRIN, CLEO Unavailable Unavailable [...] EDWARD RPA Unavailable Unavailable BRYON, MEÑO LAVERN THORACIC MEDICINE PHYSICIAN-C Unavailable Unavailable BRYON, MEÑO LAVERN THORACIC MEDICINE PHYSICIAN-C Unavailable Unavailable BRYON, MEÑO LAVERN THORACIC MEDICINE PHYSICIAN-C Unavailable Unavailable BRYON, MEÑO LAVERN THORACIC MEDICINE PHYSICIAN-C Unavailable Unavailable BRYON, MEÑO LAVERN THORACIC MEDICINE PHYSICIAN-C Unavailable Unavailable BRYON, MEÑO LAVERN THORACIC MEDICINE PHYSICIAN-C Unavailable Unavailable BRYONMEÑO LAVERN THORACIC MEDICINE PHYSICIAN-C Unavailable Unavailable BRYON, MEÑO LAVERN THORACIC MEDICINE PHYSICIAN-C Unavailable Unavailable BRYON, MEÑO LAVERN THORACIC MEDICINE PHYSICIAN-C Unavailable Unavailable BRYON, MEÑO LAVERN THORACIC MEDICINE PHYSICIAN-C Unavailable Unavailable BRYON, MEÑO LAVERN THORACIC MEDICINE PHYSICIAN-C Unavailable Unavailable BRYON, MEÑO LAVERN THORACIC MEDICINE PHYSICIAN-C Unavailable Unavailable BRYON, MEÑO LAVERN THORACIC MEDICINE PHYSICIAN-C Unavailable Unavailable BRYON, MEÑO LAVERN THORACIC MEDICINE PHYSICIAN-C Unavailable Unavailable BRYON, MEÑO LAVERN THORACIC MEDICINE PHYSICIAN-C Unavailable Unavailable BRYON, MEÑO LAVERN THORACIC MEDICINE PHYSICIAN-C Unavailable Unavailable BRYON, MEÑO LAVERN THORACIC MEDICINE PHYSICIAN-C Unavailable Unavailable ANTECOL, Sofi GOODEN MD Unavailable [...] Unavailable ANTECOL, Sofi GOODEN MD Unavailable Unavailable ANTECOLSofi MD Unavailable Unavailable ANTECOLSofi MD Unavailable Unavailable ANTECOLSofi MD Unavailable Unavailable ANTECOLSofi MD Unavailable Unavailable ANTECOL, Sofi GOODEN MD [...] Unavailable CARLOS, L MADALYN PA Unavailable Unavailable Miroslava SIERRA MD Unavailable Unavailable Miroslava SIERRA MD Unavailable Unavailable Miroslava SIERRA MD Unavailable Unavailable Miroslava SIERRA MD Unavailable Unavailable Miroslava SIERRA MD Unavailable Unavailable Miroslava SIERRA MD Unavailable Unavailable Miroslava SIERRA MD Unavailable Unavailable Miroslava SIERRA MD Unavailable Unavailable Miroslava SIERRA MD Unavailable Unavailable Miroslava SIERRA MD Unavailable Unavailable Miroslava SIERRA MD Unavailable Unavailable Miroslava SIERAR MD Unavailable Unavailable Miroslava SIERRA MD Unavailable Unavailable Miroslava SIERRA MD Unavailable Unavailable Miroslava SIERRA MD Unavailable Unavailable Miroslava SIERRA MD Unavailable Unavailable Miroslava SIERRA MD Unavailable Unavailable Miroslava SIERRA MD Unavailable Unavailable Miroslava SIERRA MD Unavailable Unavailable Miroslava SIERRA MD Unavailable Unavailable Miroslava SIERRA MD Unavailable Unavailable Miroslava SIERRA MD Unavailable Unavailable Miroslava SIERRA MD Unavailable Unavailable VANVALKENBURGMiroslava MD Unavailable Unavailable [...] Unavailable VANVALKENBURG, Miroslava MORAN MD Unavailable Unavailable VULCANO, L SOHAM Unavailable [...] Naproxen, Dilentin, Tylenol, Seasonal, Codeine active NETSMART ([facility]) Miscellaneous allergy Seasonal Seasonal PCC ([facility]) Drug allergy Tylenol Tylenol PCC ([facility]) Drug allergy Dilantin Dilantin PCC ([facility]) Drug allergy Naproxen Naproxen PCC ([facility]) Environmental Allergy ENVIRONMENTAL ENVIRONMENTAL Itching [facility] No Known Food Allergies No Known Food Allergies [facility] Propensity to adverse reactions DILANTIN DILANTIN [facility] Drug allergy CODEINE CODEINE [facility] Drug allergy NAPROXEN NAPROXEN [facility] Family History Family Member Name Family Member Gender Family Member Status Date o f Status Description Data Source(s) Unknown Condition [facility] Unknown Condition [facility] Condition [facility] Unknown Condition [facility] Unknown Condition [facility] Unknown Condition [facility] Unknown Condition [facility] Unknown Condition [facility] Unknown Condition [facility] Encounters Encounter Providers Location Date Indications Data Source(s ) Outpatient Attender: DEAN SIERRA MD 07/04/2021 12: 00:[address] [facility] Outpatient Attender: SANTOS SHOOK MD 06/26/2021 12:00:[address] [facility] Outpatient Attender: MADISON NICOLEOFFAttender: Madison shah 06/20/2021 12:00:[address] 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, not intractable, without status epilepticus [facility] Localization-related (focal) (partial) s ymptomatic epilepsy and epileptic syndromes with complex partial seizures, not intractable, without status epilepticus Outpatient Attender: [place] MahajanAttender: MADISON SHAH [id number] 05/23/2021 12:00:00 AM EDT - 05/23/2021 11:44:54 AM [facility] Unknown [address] [facility] [address] 05/23/2021 12:00:00 AM EDT eCW1 (Critical access hospital) Unknown [address] [facility] [place] [address] 05/10/2021 12:00:00 AM EDT eCW1 (Critical access hospital) Outpatient Attender: DEAN SIERRA MDReferrer : LETITIA HESTER MD [id number] 05/04/2021 12:00:[address] [facility] Outpatient Referrer: DEAN SIERRA MD 05/04/20 12:00:00 AM EDT Unspecified fracture of right talus, sequela [facility] Unspecified fracture of right talus, seq uela Outpatient Attender: SANTOS SHOOK MD 04/24/2021 12:00:0 0 AM EDT [facility] 04/18/2021 01:00:00 AM EDT - 021 12:15:40 PM EDT [facility]) Outpatient Referrer: DEAN SIERRA MD 03/23/20 12:00:00 AM EDT Primary osteoarthritis, right ankle and foot [facility] Primary osteoarthritis, right ankle and foot Outpatient Referrer: DEAN SIERRA MD 03/23/20 12:00:00 AM EDT Primary osteoarthritis, right ankle and foot [facility] Primary osteoarthritis, right ankle and foot Outpatient Attender: DEAN SIERRA MD [id number] 03/23/2021 12:00:00 AM [facility] Outpatient Attender: DEAN SIERRA MD 03/23/2021 12: 00:00 AM EDT [facility] Outpatient Attender: MADISON Velez erendira: Madison MahajanReferrer: MADISON MAHAJAN 03/07/2021 12:00:00 AM EDT Unspecified convulsio [facility] Unspecified convulsions Outpatient Attender: Madison MahajanAttender: MADISON SHAH [id number] 02/20/2021 12:00:00 AM EDT - 02/20/2021 10:04:38 AM EDT [facility] Outpatient Attender: DEAN SIERRA MDReferrer : LETITIA HESTER MD [id number] 02/14/2021 12:00:[address] [facility] Outpatient Attender: MADISON Velez erendira: Madison MahajanReferrer: MADISON MAHAJAN 02/14/2021 12:00:00 AM EDT [facility] Inpatient Attender: PADMAJA LAWSON MD 02/06 02:55:00 PM EDT - 04/17/2021 11:36:00 AM EDT [facility] ( [facility]) Patient discharged. 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 Outpatient Attender: Madison MahajanAttender: MADISON SHAH [id number] 01/30/2021 12:00:00 AM EDT - 01/30/2021 08:31:33 AM EDT [facility] Outpatient Attender: SOHAM LANGLEYOReferrer: DEAN FERREIRA MD [id number] 01/27/2021 12:00:00 AM EDT - 01/28/2021 12:00:00 AM EDT [facility] Unknown [address] [facility] [address] 01/24/2021 12:00:00 AM EDT eCW1 (Critical access hospital) Outpatient Referrer: DEAN SIERRA MD 01/23/2021 12: 00:00 AM EDT [facility] Outpatient Attender: MADISYN CHU RPA 01/20 09:54:42 AM EDT - 01/20/2021 10:29:53 AM EDT [facility] ([facility] ) Outpatient Attender: DEAN SIERRA MDReferrer : LETITIA HESTER MD [id number] 01/17/2021 12:00:[address] [facility] Outpatient Referrer: DEAN SIERRA MD 01/18/20 12:00:00 AM EDT Primary osteoarthritis, right ankle and foot [facility] Primary osteoarthritis, right ankle and foot Outpatient Referrer: DEAN SIERRA MD 01/18/20 12:00:00 AM EDT Primary osteoarthritis, right ankle and foot [facility] Primary osteoarthritis, right ankle and foot [place] [address] [facility] [address] 01/15/2021 12:00:00 AM EDT eCW1 (Critical access hospital) Outpatient Attender: SANTOS SHOOK MD [id number] 12:00:00 AM EDT - 01/09/2021 02:27:35 PM EDT [facility] [address] [facility] [address] 01/09/2021 12:00:00 AM EDT eCW1 ([facility]) Unknown [address] [facility] [address] 01/09/2021 12:00:00 AM EDT eCW1 ([facility]) Unknown [address] [facility] [address] 01/08/2021 12:00:00 AM EDT eCW1 ([facility]) Unknown [address] [facility] [address] 01/03/2021 12:00:00 AM EDT eCW1 ([facility]) Unknown [address] [facility] [address] 01/02/2021 12:00:00 AM EDT eCW1 ([facility]) [place] [address] [facility] [address] 12/27/2020 12:00:00 AM EDT eCW1 ([facility]) Outpatient Attender: SANTOS SHOOK MD [id number] 07/2020 12:00:00 AM EDT - 12/26/2020 01:54:16 PM EDT [facility] [place] [address] [facility] [address] 12/19/2020 12:00:00 AM EDT eCW1 ([facility]) Outpatient Attender: LAVERN Lu/Yonathan/Chucho/Nik segovia 12/12/2020 12:45:00 PM EDT [facility] ([facility] [place] [address] [facility] [address] 12/11/2020 12:00:00 AM EDT eCW1 ([facility]) Unknown [address] [facility] [address] 12/06/2020 12:00:00 AM EDT eCW1 (Critical access hospital) [place] [address] [facility] [address] 12/05/2020 12:00:00 AM EDT eCW1 (Critical access hospital) Outpatient Attender: DEAN SIERRA MD 11/29/2020 12: 00:00 AM [facility] Outpatient Attender: SANTOS SHOOK MD [id number] 10/2020 12:00:00 AM EDT - 11/29/2020 12:00:00 AM [facility] Attender: SANTOS SHOOK MD 11/28/2020 12:00:0 0 AM [facility] Unknown [address] [facility] [address] 11/24/2020 12:00:00 AM EDT eCW1 (Critical access hospital) Office Visit Attender: ROBERT Lu/Yonathan/Chucho/Key indl 11/20/2020 08:30:00 AM EDT [facility] ([facility] [place] [address] [facility] [address] 11/15/2020 12:00:00 AM EDT eCW1 (Critical access hospital) [place] [address] [facility] [address] 11/13/2020 12:00:00 AM EDT eCW1 (Critical access hospital) Outpatient Attender: DEAN SIERRA MD 11/08/2020 12: 00:00 AM [facility] Outpatient Attender: BERKLEY OROPEZA MD Main Office 10/30/2020 01:30:00 PM EDT [facility] ([facility]) Emergency Attender: MADALYN TANG EMERGENCY ROOM-ER 06:01:00 PM EDT - 10/24/2020 07:50:00 PM T [facility] Patient discharged. [place] [address] [facility] [address] 10/24/2020 12:00:00 AM EDT eCW1 ([facility]) Unknown [address] [facility] [address] 10/12/2020 12:00:00 AM EDT eCW1 ([facility]) [place] [address] [facility] [address] 10/06/2020 12:00:00 AM EST [facility]) [place] [address] [facility] [address] 10/05/2020 12:00:00 AM EST [facility]) Outpatient [address] [facility] [address] 10/02/2020 12:00:00 AM EST [facility]CW1 [facility]) [place] [address] [facility] [address] 09/22/2020 12:00:00 AM EST [facility]CW1 ([facility]) [place] [address] [facility] [address] 09/22/2020 12:00:00 AM EST [facility]CW1 ([facility]) Outpatient [address] [facility] [address] 09/21/2020 12:00:00 AM EST [facility]CW1 ([facility]) [place] [address] [facility] [address] 09/19/2020 12:00:00 AM EST eCW1 ([facility]) Outpatient Attender: ROBERT Lu/Yonathan/Chucho/Re indl 09/13/2020 12:30:00 PM EST [facility] ([facility] [place] [address] [facility] [address] 09/07/2020 12:00:00 AM EST eCW1 ([facility]) [place] [address] [facility] [address] 09/07/2020 12:00:00 AM EST [facility]CW1 ([facility]) Outpatient [address] [facility] [address] 09/01/2020 12:00:00 AM EST eCW1 ([facility]) [place] [address] [facility] [address] 08/28/2020 12:00:00 AM EST [facility]) [place] [address] [facility] [address] 08/25/2020 12:00:00 AM EST [facility]) Outpatient Attender: ROBERT Lu/Yonathan/Chucho/Re indl 08/23/2020 01:00:00 PM EST [facility] ([facility]) Outpatient Attender: LAVERN Lu/Yonathan/Chucho/R eindl 08/17/2020 12:15:00 PM EST [facility] ([facility]) [place] [address] [facility] [address] 08/15/2020 12:00:00 AM EST [facility]1 [facility] Outpatient [address] [facility] [address] 08/11/2020 12:00:00 AM EST [facility]1 [facility]) [place] [address] [facility] [address] 08/10/2020 12:00:00 AM EST [facility] Outpatient [address] [facility] [address] 08/03/2020 12:00:00 AM EST [facility]CW1 [facility]) Outpatient Attender: MADISON MAHAJAN 07/17/2020 12:00:[address] [facility] Outpatient Attender: DEAN SIERRA MD [id number] 06/28/2020 12:00:00 AM EST Primary osteoarthritis, right ankle and foot [facility] Primary osteoarthritis, right ankle and foot Outpatient Attender: MADISON MAHAJAN 06/26/2020 12:00:[address] [facility] Outpatient [address] [facility] [address] 06/12/2020 12:00:00 AM EST eCW1 ([facility]) Outpatient Attender: SANTOS SHOOK MD [id number] 04/2020 12:00:00 AM EST - 06/06/2020 02:43:30 PM EST Post-traumatic bulbous urethral stricture [facility] Post-traumatic bulbous urethral strictur e Outpatient Attender: MADISON MAHAJAN 06/05/2020 12:00:[address] [facility] Outpatient Attender: Shannan Negrete MDConsultant: LETITIA HESTER MD 06/01/2020 01:00:00 PM EST - 06/01/2020 01:00:00 PM EST [facility] Outpatient Attender: MADISON MAHAJAN 05/24/2020 12:00:00 A M [facility] [place] [address] [facility] [address] 05/22/2020 12:00:00 AM EDT eCW1 ([facility]) [place] [address] [facility] [address] 05/22/2020 12:00:00 AM EDT eCW1 ([facility]) [place] [address] [facility] [address] 05/18/2020 12:00:00 AM EDT eCW1 ([facility]) Outpatient [address] [facility] [address] 05/15/2020 12:00:00 AM EDT eCW1 ([facility]) Outpatient Attender: SANTOS SHOOK MD [id number] 12:00:00 AM EDT - 05/09/2020 02:16:06 PM [facility] Out[facility] Referrer: ADITYA TANG 04/26/2020 12:00:00 AM EDT Primary osteoarthritis, right ankle and foot [facility] Primary osteoarthritis, right ankle and foot Outpatient Referrer: ADITYA TANG 04/26/2020 12:00:00 AM EDT Primary osteoarthritis, right ankle and foot [facility] Primary osteoarthritis, right ankle and foot Outpatient Attender: ADITYA TANG [id number] 04/26/2020 12:00:00 AM EDT Primary osteoarthritis, right ankle and foot [facility] Primary osteoarthritis, right ankle and foot Outpatient Attender: Shannan Negrete MDConsultant: LETITIA HESTER MD 04/20/2020 02:36:00 PM EDT - 04/20/2020 02:36:00 PM EDT [facility] Outpatient Attender: LETITIA HESTER MDConsultant: LETITIA Madison MD 04/05/2020 10:11:00 AM EDT - 04/05/2020 10:11:00 AM EDT [facility] Outpatient Attender: ALESHIA GEORGES MDConsultant: LETITIA Madison MD 03/29/2020 01:51:00 PM EDT - 03/29/2020 01:51:00 PM EDT [facility] Outpatient Attender: LETITIA HESTER MDConsultant: LETITIA Madison MD 03/27/2020 12:49:00 PM EDT - 03/27/2020 12:49:00 PM EDT [facility] Emergency Attender: CLEO GRUBERConsultant: LETITIA Madison MD 03/22/2020 03:26:00 PM EDT - 03/22/2020 05:25:00 PM EDT [facility] Patient discharged. Emergency Attender: HITESH MELGAR MDConsultant: LETITIA HESTER MD 03/09/2020 05:46:00 PM EDT - 03/10/2020 12:45:00 AM EDT [facility] Patient discharged. Outpatient Attender: LETITIA HESTER MDConsultant: LETITIA Madison MD 02/23/2020 10:36:00 AM EDT - 02/23/2020 10:36:00 AM EDT [facility] Outpatient Attender: MANOJ ROCK MDConsultant: LETITIA HESTER MD 12/15/2019 11:32:18 AM EDT [facility] Immunizations Vaccine Date Status Description Data Source(s) Tdap 05/17/2021 02:19:00 PM EDT completed e CW1 ([facility]) influenza, recombinant, quadrIvalent,injectable, prese rvative free 05/17/2021 01:16:00 PM EDT completed eCW1 ([facility]) COVID-19 VACCINE Moderna 02/16/2021 12:00:00 AM EDT completed [facility]SIIS Vaccine Series Complete: NOThis Data was Submitted to [facility] Via [employer]. 207 12/29/2020 12:00:00 AM EDT completed <td I D="[id number]">Moderna SARS-CoV-2 Vaccine</td><td>12/29/2020</td><td></td> [facility] COVID-19 VACCINE Moderna 12/29/2020 12:00:00 AM EDT completed [facility]SIIS Vaccine Series Complete: NOThis Data was Submitted to [facility] Via [employer]. New in 2011. IIV4 06/01/2020 12:00:00 AM EST completed <t d ID="[id number]">Influenza Quad IM Pres Free (0.5 mL dose)</td><td>06/01/2020, 07/19/2019</td><td></td> [facility] Medications Medication Brand Name Start Date Product Form Dose Route Admi nistrative Instructions Pharmacy Instructions Status Indications Reaction Description Data Source(s) Ciprofloxacin 500 MG Oral Tablet Ciprofloxacin HCl 500 MG Ciprofloxacin HCl 500 MG 05/17/2021 12:00:00 AM EDT 1.0 {tablet} activ e Ciprofloxacin HCl 500 MG eCW1 ([facility]) Methocarbamol 750 MG Methocarbamol 04/18/2021 01:00:00 AM EDT 1.0 {tablet} completed NETSMART ([facility]) Keppra 500 MG Keppra 04/18/2021 01:00:00 AM EDT 1.0 {tablet} completed NETSMART ([facility]) AirDuo Digihaler 232-14 MCG/ACT AirDuo Digihaler 04/18/2021 01:00:00 AM EDT completed NETSMART ( [facility]) oxyCODONE HCl 5 MG oxyCODONE HCl 04/18/2021 01:00:00 AM EDT completed NETSMART ([facility]) [facility] Omeprazole 20 MG [facility] Omeprazole 04/18/2021 01:00:00 AM EDT completed NETSMART ([facility]) Montelukast Sodium 10 MG Montelukast Sodium 04/18/2021 01:00:00 AM EDT completed NETSMART ([facility]) Mirtazapine 15 MG Mirtazapine 04/18/2021 01:00:00 AM EDT completed NETSMART ([facility]) Ibuprofen 600 MG Ibuprofen 04/18/2021 01:00:00 AM EDT completed NETSMART ([facility]) Vitamin D-2 50,000 U(1.25 mg) Vitamin D-2 04/18/2021 01:00:00 AM EDT completed NETSMART ([facility]) Topiramate 200 MG Topiramate 04/18/2021 01:00:00 AM EDT completed NETSMART ([facility] ) Doxycycline Monohydrate 100 MG Doxycycline Monohydrate 04/18 01:00:00 AM EDT completed NETSMAR T ([facility]) Sucralfate 1 GM Sucralfate 04/18/2021 01:00:00 AM EDT completed NETSMART ([facility]) Triamcinolone Acetonide 0.1 % Triamcinolone Acetonide 2020 01:00:00 AM EDT completed NETSMAR T ([facility]) Trospium Chloride 20 MG Trospium Chloride 04/18/2021 01:00:00 AM EDT completed NETSMART ([facility]) Desvenlafaxine ER 100 MG Desvenlafaxine ER 04/18/2021 01:00:00 AM EDT completed NETSMART ([facility]) Claritin 10 MG Claritin 04/18/2021 01:00:00 AM EDT completed NETSMART ([facility]) Aspirin 325 MG Aspirin 04/18/2021 01:00:00 AM EDT completed NETSMART ([facility]) SM Pain Reliever 325 MG SM Pain Reliever 04/18/2021 01:00:00 AM EDT completed NETSMART ([facility]) POLYETHYLENE GLYCOL 3350 142 MG/ML Oral Solution Polyethylene Glycol 3350 17 GM Oral Packet (MIRALAX) Polyethylene Glycol 3350 17 GM Oral Packet (MIRALAX) 02/07/2021 12:00:00 AM EDT 17 g Oral active Take 1 packet by mouth daily for 3 daysPlease substitute bottle for packets, if packets are unavailable. [facility] Aspirin 325 MG Delayed Release Oral Tabl et Aspirin EC 325 MG Oral Tablet Delayed Release Aspirin EC 325 MG Oral Tablet Delayed Release 02/07/20 12:00:00 AM EDT 325 mg Oral active Take 1 t ablet by mouth daily Take with food, to help prevent blood clots [facility] Oxycodone Hydrochloride 5 MG Oral Tablet oxyCODONE HCl 5 MG Oral Tablet (ROXICODONE) oxyCODONE HCl 5 MG Oral Tablet (ROXICODONE) 02/06/2021 12:00:00 AM EDT mg Oral active Take 1-2 tablets by mouth every 6 (six) hours as needed (moderate to severe pain) for up to 7 days, Max Daily Dose: 40 mg [facility] sennosides, CARE HOME 8.6 MG Oral Tablet Senna 8.6 MG Oral T ablet Senna 8.6 MG Oral Tablet 02/06/2021 12:00:00 AM EDT 2 {tbl} Oral active Take 2 tablets by mouth daily as needed [facility] Methocarbamol 750 MG Oral Tablet Methocarbamol 750 MG Oral Tablet (ROBAXIN) Methocarbamol 750 MG Oral Tablet (ROBAXIN) 02/06/2021 12:00:00 AM EDT 750 mg Oral active Take 1 tablet by nehal th Two times daily as needed (pain) [facility] Docusate Sodium 100 MG Oral Capsule Docu sate Sodium 100 MG Oral Capsule (COLACE) Docusate Sodium 100 MG Oral Capsule (COLACE) 02/06/2021 12:00:00 AM EDT 100 mg Oral active Take 1 capsule by mouth Two Times Daily [facility] Docusate Sodium 100 MG Oral Capsule docusate sodium (C OLACE) capsule 100 mg docusate sodium (COLACE) capsule 100 mg 02/03/2021 09:00:00 PM EDT 100 mg Oral active 100 mg, Oral, 2 Times Daily, First dose on 02/03/21 at 2100, For 30 days [facility] Medication administered onsite POLYETHYLENE GLYCOL 3350 [...] due to potential increased risk for aspiration.
[facility] Medication administered onsite Magnesium Hydroxide 80 [...] creatinine > 2 notify provider before administering.
[facility] Medication administered onsite 0.4 ML Enoxaparin sodium 100 MG/ML Prefi lled Syringe enoxaparin sodium (LOVENOX) injection 40 mg enoxaparin sodium (LOVENOX) injection 40 mg 02/01/2021 09:00:00 PM EDT 40 mg Subcutaneous active 40 mg, Subcutaneous, Every 12 hours Standard (2 times per day), First dose (after last modification) on Kelly 02/01/21 at 2100, For 30 doses [facility] Medication administered onsite 60 ACTUAT Budesonide 0.16 MG/ACTUAT / fo rmoterol fumarate 0.0045 MG/ACTUAT Metered Dose Inhaler budesonide-formoterol (SYMBICORT) 160-4.5 MCG/ACT inhaler 2 puff budesonide-formoterol (SYMBICORT) 160-4.5 MCG/ACT inha ler 2 puff 02/01/2021 08:00:00 PM EDT 2 {puff} Inhalation active 2 puff, Inhalation, 2 Times Daily, First dose on Kelly 02/01/21 at 2000, For 7 days
Shake well before using
[facility] Medication administered onsite Diphenhydramine Hydrochloride 25 MG Oral Capsule diphenhydrAMINE (BENADRYL) capsule 25 mg diphenhydrAMINE (BENADRYL) capsule 25 mg 01/31/2021 04 :10:44 PM EDT 25 mg Oral active 25 mg, O ral, Every 6 hours PRN, Itching, Starting on Fri01/31/21 at 1610, For 30 days [facility] Medication administered onsite Loratadine 10 MG Oral Tablet loratadine (CLARITIN) tab let 10 mg loratadine (CLARITIN) tablet 10 mg 01/31/2021 09:00:00 AM EDT 10 mg Oral active 10 mg, Oral, Daily Standard, First dose on Fri01/31/21 at 0900, For 30 days [facility] Medication administered onsite desvenlafaxine (PRISTIQ) 24 hr tablet 100 mg [id number] 01/31/2021 09:00:00 AM EDT 100 mg Oral active 100 mg, Oral, Daily Standard, First dose on Fri01/31/21 at 0900, For 30 days
Do not crush or chew.
[facility] Medication administered onsite Mirtazapine 15 MG Oral Tablet mirtazapine (REMERON) ta blet 15 mg mirtazapine (REMERON) tablet 15 mg 01/31/2021 09:00:00 AM EDT 15 mg Oral active 15 mg, Oral, Daily Standard, First dose on Fri01/31/21 at 0900, For 30 days [facility] Medication administered onsite Vitamin B 12 0.1 MG Oral Tablet vitamin B-12 (CYANOCOB ALAMIN) tablet 50 mcg vitamin B-12 (CYANOCOBALAMIN) tablet 50 mcg 01/31/2021 09:00:00 AM EDT 50 ug Oral active 50 mcg, Oral, Daily Standard, First dose on Fri01/31/21 at 0900, For 30 days [facility] Medication administered onsite 0.4 ML Enoxaparin sodium 100 MG/ML Prefi lled Syringe enoxaparin sodium (LOVENOX) injection 40 mg enoxaparin sodium (LOVENOX) injection 40 mg 01/31/2021 09:00:00 AM EDT 40 mg Subcutaneous aborted 40 mg, Subcutaneous, Daily Standard, First dose on Fri01/31/21 at 0900, For 30 days [facility] Medication administered onsite Docusate Sodium 100 MG Oral Capsule docusate sodium (C OLACE) capsule 100 mg docusate sodium (COLACE) capsule 100 mg 01/31/2021 09:00:00 AM EDT 100 mg Oral aborted 100 mg, Oral, Daily Standard, First dose on Fri01/31/21 at 0900, For 30 days [facility] Medication administered onsite pantoprazole 40 MG Delayed Release Oral Tablet pantoprazole (PROTONIX) EC tablet 40 mg pantoprazole (PROTONIX) EC tablet 40 mg 01/31/2021 07:30:00 AM E DT 40 mg Oral active 40 mg, Ora l, Before Breakfast, First dose on Fri01/31/21 at 0730, For 30 doses
Do not crush or chew
[facility] Medication administered onsite montelukast 10 MG Oral Tablet montelukast (SINGULAIR) tablet 10 mg montelukast (SINGULAIR) tablet 10 mg 01/30/2021 10:00:00 PM EDT 10 mg Oral active 10 mg, Oral, Nightly, First dose on Fri01/30/21 at 2200, For 30 days [facility] Medication administered onsite Cefazolin 1000 MG Injection ceFAZolin (ANCEF) IVPB 1 g in dextrose 5 % (premix) ceFAZolin (ANCEF) IVPB 1 g in dextrose 5 % (premix) 01/30/2021 10:00:00 PM EDT 1 g Intravenous completed 1 g, Intra venous, Administer over 30 Minutes, Every 8 hours, First dose on Fri01/30/21 at 2200, For 1 day [facility] Medication administered onsite gabapentin 100 MG Oral Capsule gabapentin (NEURONTIN) capsule 100 mg gabapentin (NEURONTIN) capsule 100 mg 01/30/2021 10:00:00 PM EDT 100 mg Oral active 100 mg, Oral, Nightly, Indic ations: continue home med, First dose on Fri01/30/21 at 2200, For 30 days [facility] Medication administered onsite Doxycycline Monohydrate 100 MG Oral Caps ule doxycycline (MONODOX) capsule 100 mg doxycycline (MONODOX) capsule 100 mg 01/30/2021 09:00:00 PM EDT 100 mg Oral completed 100 mg, Oral, 2 Times Daily, First dose (after last modification) on Fri01/30/21 at 2100, For 7 days [facility] Medication administered onsite topiramate 100 MG Oral Tablet topiramate (TOPAMAX) tab let 200 mg topiramate (TOPAMAX) tablet 200 mg 01/30/2021 09:00:00 PM EDT 200 mg Oral active 200 mg, Oral, 2 Times Daily, First dose on Fri01/30/21 at 2100, For 30 doses [facility] Medication administered onsite Levetiracetam 500 MG Oral Tablet levETIRAcetam (KEPPRA ) tablet 500 mg levETIRAcetam (KEPPRA) tablet 500 mg 01/30/2021 09:00:00 PM EDT 500 m g Oral active 500 mg, Oral, 2 Times Daily, First dose on Fri01/30/21 at 2100, For 30 days [facility] Medication administered onsite trospium chloride 20 MG Oral Tablet trospium (SANCTURA ) tablet 20 mg trospium (SANCTURA) tablet 20 mg 01/30/2021 05:30:00 PM EDT 20 mg Oral active 20 mg, Oral, Two times daily before breakfast and dinner, First dose on Fri01/30/21 at 1730, For 30 doses [facility] Medication administered onsite Methocarbamol 500 MG Oral Tablet methocarbamol (ROBAXI N) tablet 750 mg methocarbamol (ROBAXIN) tablet 750 mg 01/30/2021 05:03:09 PM EDT 75 0 mg Oral active 750 mg, Oral, 2 Times Daily PRN, Muscle spasms, Starting on Fri01/30/21 at 1703, For 30 days [facility] Medication administered onsite Bisacodyl 10 MG Rectal Suppository bisacodyl (DULCOLAX ) suppository 10 mg bisacodyl (DULCOLAX) suppository 10 mg 01/30/2021 05:03:08 PM EDT 10 mg Rectal active 10 mg, Rectal, Every 72 hours PRN, Constipation, Constipation, Starting on Fri01/30/21 at 1703, For 30 days
Hold if patient has had a BM in the past 2 days.
[facility] Medication administered onsite Levetiracetam 15 MG/ML Injectable Soluti on levETIRAcetam (KEPPRA) 1,500 mg in sodium chloride 100 mL (15 mg/mL) infusion (premix) levETIRAcetam (KEPPRA) 1,500 mg in sodium chloride 100 mL (15 mg/mL) infusion (premix) 01/30/2021 11:45:00 AM EDT 1500 mg Intravenous completed 1, 500 mg, Intravenous, at 400 mL/hr, Once, On Fri01/30/21 at 1145, For 1 dose, Pre-op [facility] Medication administered onsite Acetaminophen 325 MG Oral Tablet acetaminophen (TYLENO L) tablet 975 mg acetaminophen (TYLENOL) tablet 975 mg 01/30/2021 11:00:00 AM EDT 97 5 mg Oral completed 975 mg, Oral, O nce, On Fri01/30/21 at 1100, For 1 dose
Maximum daily dose of acetaminophen is 3,000 mg from all sources in 24 hours.
Pre-op [facility] Medication administered onsite gabapentin 300 MG Oral Capsule gabapentin (NEURONTIN) capsule 300 mg gabapentin (NEURONTIN) capsule 300 mg 01/30/2021 11:00:00 AM EDT 300 mg Oral completed Postoperative Pain 300 mg, Oral, Once, Indications: Postoperative Pain, On Fri01/30/21 at 1100, For 1 dose, Pre-op [facility] Postoperative Pain Medication administered onsite Calcium Chloride 0.0014 MEQ/ML / Potassi um Chloride 0.004 MEQ/ML / Sodium Chloride 0.103 MEQ/ML / Sodium Lactate 0.028 MEQ/ML Injectable Solution lactated ringers infusion lactated ringers infusion 01/30/2021 11:00:00 AM EDT Intravenous active at 100 mL/hr, Intravenous, Continuous, Starting on Fri01/30/21 at 1100, For 30 days
Keep Vein Open. Use Wide Tubing.
[facility] Medication administered onsite [facility] [place]. Devices (DURABLE MEDICAL EQUIPMENT SEE SIG) [place] [facility] [place] [id number] 01/18/2021 12:00:00 AM EDT aborted Use as directed. Shower bench Dx: M19.071 [facility]. Devices (DURABLE MEDICAL EQUIPMENT SEE SIG) [place] [facility] [place] [id number] 01/17/2021 12:00:00 AM EDT aborted Use as directed. Roll A Bout Knee Scooter Dx: [facility] trospium chloride 20 MG Oral Tablet Tros pium Chloride 20 MG Oral Tablet (SANCTURA) Trospium Chloride 20 MG Oral Tablet (SANCTURA) 021 12:00:00 AM EDT 20 mg Oral active Take 1 t ablet by mouth Two times daily before breakfast and dinner [facility] 24 HR mirabegron 25 MG Extended Release Oral Tablet Mirabegron ER 25 MG Oral Tablet Extended Release 24 Hour (MYRBETRIQ) Mirabegron ER 25 MG Oral Tablet Extended Release 24 Hour (MYRBETRIQ) 01/09/2021 12:00:00 AM EDT 25 mg Oral active Take 1 tablet by mouth daily [facility] Fluticasone Propionate/Salmeterol Fluticasone Propionate/Benjamin meterol 12/12/2020 12:00:00 AM EDT RESPIRATORY active MEDENT ([facility], ) Phenazopyridine hydrochloride 200 MG Del ayed Release Oral Tablet Phenazopyridine HCl 200 MG Oral Tablet (Pyridium) Phenazopyridine HCl 200 MG Oral Tablet (Pyridium) 11/28/2020 12:00:00 AM EDT 200 mg Oral active UTI symptoms Take 1 tablet by mouth Three times daily for 3 days [facility] UTI symptoms Nystatin 100 UNT/MG Topical Powder Nysta tin [id number] UNIT/GM External Powder (MYCOSTATIN) Nystatin 580327 UNIT/GM External Powder (MYCOSTATIN) 0 11/28/2020 12:00:00 AM EDT aborted UTI symptoms Apply to area under abdominal folds twice daily [facility] UTI symptoms Sumatriptan 100 MG Oral Tablet [Imitrex] Imitrex 10/29/2020 12:00: 00 AM EDT ORAL active MEDENT ([facility]) Biotin 1 MG Oral Capsule Biotin 10/29/2020 12:00:00 AM EDT ORAL active MED[facility] ([facility] 24 HR Desvenlafaxine 50 MG Extended Release Oral Tablet [Lilliam stiq] Pristiq 10/29/2020 12:00:00 AM EDT ORAL active MEDENT ([facility]) 7 ACTUAT umeclidinium 0.0625 MG/ACTUAT Dry Powder Inha ler [Incruse] Incruse Ellipta 10/29/2020 12:00:00 AM EDT RESPIRATORY active MEDENT ([facility]) ciclopirox 80 MG/ML Topical Solution Ciclopirox 10/29/2020 12:00:00 A M EDT active MEDENT ([facility]) Vitamin B 12 0.1 MG Oral Tablet Vitamin B12 10/29/2020 12:00:00 AM EDT ORAL active MEDENT ([facility]) Ondansetron 4 MG Oral Tablet [Zofran] Zofran 10/29/2020 12:00:00 AM EDT active MEDENT ([facility]) Omeprazole 20 MG Delayed Release Oral Tablet [Prilosec] Pril osec OTC 10/29/2020 12:00:00 AM EDT ORAL active M EDENT ([facility]) topiramate 200 MG Oral Tablet [Topamax] Topamax 10/29/2020 12:00:0 0 AM EDT ORAL active MEDENT ([facility]) montelukast 10 MG Oral Tablet Montelukast Sodium 10/29/2020 12:00:00 AM EDT ORAL active MEDENT ([facility]) cetirizine hydrochloride 10 MG Oral Tablet Cetirizine HCL 10/29/2020 12:00:00 AM EDT ORAL active MEDENT ([facility]) Levetiracetam 500 MG Oral Tablet [Keppra] Keppra 10/29/2020 12:00 :00 AM EDT ORAL active MEDENT ([facility]) Sucralfate 1000 MG Oral Tablet [Carafate] Carafate 10/29/2020 1 2:00:00 AM EDT ORAL active MEDENT ([facility]) POLYETHYLENE GLYCOL 3350 142 MG/ML Oral Solution [Miralax] M iralax 10/29/2020 12:00:00 AM EDT ORAL active M EDENT ([facility]) Acetaminophen 325 MG Oral Tablet [Tylenol] Tylenol 10/29/2020 12:00:00 AM EDT ORAL active MEDENT ([facility]) Ergocalciferol 27750 UNT Oral Capsule Vitamin D (Ergocalcife rol) 10/29/2020 12:00:00 AM EDT ORAL active M EDENT ([facility]) Albuterol 0.83 MG/ML Inhalant Solution Albuterol Sulfate 0 10/29/2020 12:00:00 AM EDT active MEDENT ([facility]) Nystatin 022718 UNT/ML Topical Cream Nystatin 10/29/2020 12:00:00 AM EDT active MEDENT ([facility]) Acetaminophen 325 MG Oral Tablet [Tylenol] Tylenol 325 MG Ty lenol 325 MG 09/23/2020 12:00:00 AM EST 1.0 {tablet_as_needed} active Tylenol 325 MG eCW1 ([facility]) MiraLax Mix-In [place] 17 GM MiraLax Mix-In [place] 17 09/23/2020 12:00: 00 AM EST 1.0 {packet_mixed_with_8_ounces_of_fluid} active MiraLax Mix-In [place] 17 GM eCW1 ([facility]) MiraLax Mix-In [place] 17 GM MiraLax Mix-In [place] 17 09/23/2020 12:00: 00 AM EST 1.0 {packet_mixed_with_8_ounces_of_fluid} active MiraLax Mix-In [place] 17 GM eCW1 ([facility]) Acetaminophen 325 MG Oral Tablet [Tylenol] Tylenol 325 MG Ty lenol 325 MG 09/23/2020 12:00:00 AM EST 1.0 {tablet_as_needed} active Tylenol 325 MG eCW1 ([facility]) Acetaminophen 325 MG Oral Tablet [Tylenol] Tylenol 325 MG Ty lenol 325 MG 09/23/2020 12:00:00 AM EST 1.0 {tablet_as_needed} active Tylenol 325 MG eCW1 ([facility]) Acetaminophen 325 MG Oral Tablet [Tylenol] Tylenol 325 MG Ty lenol 325 MG 09/23/2020 12:00:00 AM EST 1.0 {tablet_as_needed} active Tylenol 325 MG eCW1 ([facility]) MiraLax Mix-In [place] 17 GM MiraLax Mix-In [place] 17 GM 09/23/2020 12:00: 00 AM EST 1.0 {packet_mixed_with_8_ounces_of_fluid} active MiraLax Mix-In [place] 17 GM eCW1 ([facility]) Acetaminophen 325 MG Oral Tablet [Tylenol] Tylenol 325 MG Ty lenol 325 MG 09/23/2020 12:00:00 AM EST 1.0 {tablet_as_needed} active Tylenol 325 MG eCW1 ([facility]) MiraLax Mix-In [place] 17 GM MiraLax Mix-In [place] 17 09/23/2020 12:00: 00 AM EST 1.0 {packet_mixed_with_8_ounces_of_fluid} active MiraLax Mix-In [place] 17 GM eCW1 ([facility]) Acetaminophen 325 MG Oral Tablet [Tylenol] Tylenol 325 MG Ty lenol 325 MG 09/23/2020 12:00:00 AM EST 1.0 {tablet_as_needed} active Tylenol 325 MG eCW1 ([facility]) Acetaminophen 325 MG Oral Tablet [Tylenol] Tylenol 325 MG Ty lenol 325 MG 09/23/2020 12:00:00 AM EST 1.0 {tablet_as_needed} active Tylenol 325 MG eCW1 ([facility]) MiraLax Mix-In [place] 17 GM MiraLax Mix-In [place] 17 09/23/2020 12:00: 00 AM EST 1.0 {packet_mixed_with_8_ounces_of_fluid} active MiraLax Mix-In [place] 17 GM eCW1 ([facility]) Acetaminophen 325 MG Oral Tablet [Tylenol] Tylenol 325 MG Ty lenol 325 MG 09/23/2020 12:00:00 AM EST 1.0 {tablet_as_needed} active Tylenol 325 MG eCW1 ([facility]) Acetaminophen 325 MG Oral Tablet [Tylenol] Tylenol 325 MG Ty lenol 325 MG 09/23/2020 12:00:00 AM EST 1.0 {tablet_as_needed} active Tylenol 325 MG eCW1 ([facility]) Acetaminophen 325 MG Oral Tablet [Tylenol] Tylenol 325 MG Ty lenol 325 MG 09/23/2020 12:00:00 AM EST 1.0 {tablet_as_needed} active Tylenol 325 MG eCW1 ([facility]) MiraLax Mix-In [place] 17 GM MiraLax Mix-In [place] 17 09/23/2020 12:00: 00 AM EST 1.0 {packet_mixed_with_8_ounces_of_fluid} active [facility] [place] [facility] MiraLax Mix-In [place] 17 GM MiraLax Mix-In [place] 17 09/23/2020 12:00: 00 AM EST 1.0 {packet_mixed_with_8_ounces_of_fluid} active MiraLax Mix-In [place] 17 GM eCW1 ([facility]) Acetaminophen 325 MG Oral Tablet [Tylenol] Tylenol 325 MG Ty lenol 325 MG 09/23/2020 12:00:00 AM EST 1.0 {tablet_as_needed} active Tylenol 325 MG eCW1 ([facility]) MiraLax Mix-In [place] 17 GM MiraLax Mix-In [place] 17 09/23/2020 12:00: 00 AM EST 1.0 {packet_mixed_with_8_ounces_of_fluid} active MiraLax Mix-In [place] [facility] MiraLax Mix-In [place] 17 GM MiraLax Mix-In [place] 17 09/23/2020 12:00: 00 AM EST 1.0 {packet_mixed_with_8_ounces_of_fluid} active MiraLax Mix-In [place] [facility] MiraLax Mix-In [place] 17 GM MiraLax Mix-In [place] 17 09/23/2020 12:00: 00 AM EST 1.0 {packet_mixed_with_8_ounces_of_fluid} active MiraLax Mix-In [place] 17 GM W1 ([facility]) MiraLax Mix-In [place] 17 GM MiraLax Mix-In [place] 17 09/23/2020 12:00: 00 AM EST 1.0 {packet_mixed_with_8_ounces_of_fluid} active MiraLax Mix-In [place] 17 GM eCW1 ([facility]) Acetaminophen 325 MG Oral Tablet [Tylenol] Tylenol 325 MG Ty lenol 325 MG 09/23/2020 12:00:00 AM EST 1.0 {tablet_as_needed} active Tylenol 325 MG eCW1 ([facility]) Acetaminophen 325 MG Oral Tablet [Tylenol] Tylenol 325 MG Ty lenol 325 MG 09/23/2020 12:00:00 AM EST 1.0 {tablet_as_needed} active Tylenol 325 MG eCW1 ([facility]) MiraLax Mix-In [place] 17 GM MiraLax Mix-In [place] 17 GM 09/23/2020 12:00: 00 AM EST 1.0 {packet_mixed_with_8_ounces_of_fluid} active MiraLax Mix-In [place] 17 GM eCW1 ([facility]) MiraLax Mix-In [place] 17 GM MiraLax Mix-In [place] 17 09/23/2020 12:00: 00 AM EST 1.0 {packet_mixed_with_8_ounces_of_fluid} active MiraLax Mix-In [place] 17 GM eCW1 ([facility]) MiraLax Mix-In [place] 17 GM MiraLax Mix-In [place] 17 09/23/2020 12:00: 00 AM EST 1.0 {packet_mixed_with_8_ounces_of_fluid} active eCW1 ([facility]) MiraLax Mix-In [place] 17 GM MiraLax Mix-In [place] 17 09/23/2020 12:00: 00 AM EST 1.0 {packet_mixed_with_8_ounces_of_fluid} active MiraLax Mix-In [place] 17 GM eCW1 ([facility]) MiraLax Mix-In [place] 17 GM MiraLax Mix-In [place] 17 GM 09/23/2020 12:00: 00 AM EST 1.0 {packet_mixed_with_8_ounces_of_fluid} active MiraLax Mix-In [place] 17 GM eCW1 ([facility]) MiraLax Mix-In [place] 17 GM MiraLax Mix-In [place] 17 GM 09/23/2020 12:00: 00 AM EST 1.0 {packet_mixed_with_8_ounces_of_fluid} active MiraLax Mix-In [place] 17 GM eCW1 ([facility]) MiraLax Mix-In [place] 17 GM MiraLax Mix-In [place] 17 GM 09/23/2020 12:00: 00 AM EST 1.0 {packet_mixed_with_8_ounces_of_fluid} active MiraLax Mix-In [place] 17 GM eCW1 ([facility]) Acetaminophen 325 MG Oral Tablet [Tylenol] Tylenol 325 MG Ty lenol 325 MG 09/23/2020 12:00:00 AM EST 1.0 {tablet_as_needed} active Tylenol 325 MG W1 ([facility]) MiraLax Mix-In [place] 17 GM MiraLax Mix-In [place] 17 GM 09/23/2020 12:00: 00 AM EST 1.0 {packet_mixed_with_8_ounces_of_fluid} active MiraLax Mix-In [place] 17 GM eCW1 ([facility]) Acetaminophen 325 MG Oral Tablet [Tylenol] Tylenol 325 MG Ty lenol 325 MG 09/23/2020 12:00:00 AM EST 1.0 {tablet_as_needed} active Tylenol 325 MG [facility] [place] ([facility]) MiraLax Mix-In [place] 17 GM MiraLax Mix-In [place] 17 GM 09/23/2020 12:00: 00 AM EST 1.0 {packet_mixed_with_8_ounces_of_fluid} active MiraLax Mix-In [place] 17 GM eCW1 ([facility]) Acetaminophen 325 MG Oral Tablet [Tylenol] Tylenol 325 MG Ty lenol 325 MG 09/23/2020 12:00:00 AM EST 1.0 {tablet_as_needed} ac tive eCW1 ([facility]) MiraLax Mix-In [place] 17 GM MiraLax Mix-In [place] 17 GM 09/23/2020 12:00: 00 AM EST 1.0 {packet_mixed_with_8_ounces_of_fluid} active MiraLax Mix-In [place] 17 GM eCW1 ([facility]) Acetaminophen 325 MG Oral Tablet [Tylenol] Tylenol 325 MG Ty lenol 325 MG 09/23/2020 12:00:00 AM EST 1.0 {tablet_as_needed} active Tylenol 325 MG eCW1 ([facility]) Acetaminophen 325 MG Oral Tablet [Tylenol] Tylenol 325 MG Ty lenol 325 MG 09/23/2020 12:00:00 AM EST 1.0 {tablet_as_needed} active Tylenol 325 MG W1 ([facility]) MiraLax Mix-In [place] 17 GM MiraLax Mix-In [place] 17 09/23/2020 12:00: 00 AM EST 1.0 {packet_mixed_with_8_ounces_of_fluid} active MiraLax Mix-In [place] 17 eCW1 ([facility]) MiraLax Mix-In [place] 17 MiraLax Mix-In [place] 17 09/23/2020 12:00: 00 AM EST 1.0 {packet_mixed_with_8_ounces_of_fluid} active MiraLax Mix-In [place] 17 GM eCW1 ([facility]) Acetaminophen 325 MG Oral Tablet [Tylenol] Tylenol 325 MG Ty lenol 325 MG 09/23/2020 12:00:00 AM EST 1.0 {tablet_as_needed} active Tylenol 325 MG W ([facility]) Acetaminophen 325 MG Oral Tablet [Tylenol] Tylenol 325 MG Ty lenol 325 MG 09/23/2020 12:00:00 AM EST 1.0 {tablet_as_needed} active Tylenol 325 MG W1 ([facility]) Acetaminophen 325 MG Oral Tablet [Tylenol] Tylenol 325 MG Ty lenol 325 MG 09/23/2020 12:00:00 AM EST 1.0 {tablet_as_needed} active Tylenol 325 MG W1 ([facility]) MiraLax Mix-In [place] 17 GM MiraLax Mix-In [place] 17 09/23/2020 12:00: 00 AM EST 1.0 {packet_mixed_with_8_ounces_of_fluid} active MiraLax Mix-In [place] 17 GM eCW1 ([facility]) MiraLax Mix-In [place] 17 GM [facility] [place] 17 GM 09/23/2020 12:00: 00 AM EST 1.0 {packet_mixed_with_8_ounces_of_fluid} active [facility] Mix-In [place] 17 GM eCW1 ([facility]) Acetaminophen 325 MG Oral Tablet [Tylenol] Tylenol 325 MG Ty lenol 325 MG 09/23/2020 12:00:00 AM EST 1.0 {tablet_as_needed} active Tylenol 325 MG eCW1 ([facility]) [facility] [place] 17 GM [facility] Mix-In [place] 17 GM 09/23/2020 12:00: 00 AM EST 1.0 {packet_mixed_with_8_ounces_of_fluid} active [facility] Mix-In [place] 17 GM eCW1 ([facility]) Acetaminophen 325 MG Oral Tablet [Tylenol] Tylenol 325 MG Ty lenol 325 MG 09/23/2020 12:00:00 AM EST 1.0 {tablet_as_needed} active Tylenol 325 MG W1 ([facility]) [facility] [place] 17 GM [facility] Mix-In [place] 17 GM 09/23/2020 12:00: 00 AM EST 1.0 {packet_mixed_with_8_ounces_of_fluid} active [facility] Mix-In [place] 17 GM eCW1 ([facility]) Acetaminophen 325 MG Oral Tablet [Tylenol] Tylenol 325 MG Ty lenol 325 MG 09/23/2020 12:00:00 AM EST 1.0 {tablet_as_needed} active Tylenol 325 MG eCW1 ([facility]) Acetaminophen 325 MG Oral Tablet [Tylenol] Tylenol 325 MG Ty lenol 325 MG 09/23/2020 12:00:00 AM EST 1.0 {tablet_as_needed} active Tylenol 325 MG eCW1 ([facility]) Acetaminophen 325 MG Oral Tablet [Tylenol] Tylenol 325 MG Ty lenol 325 MG 09/23/2020 12:00:00 AM EST 1.0 {tablet_as_needed} active Tylenol 325 MG eCW1 ([facility]) [facility] Mix-In [place] 17 GM [facility] Mix-In [place] 17 GM 09/23/2020 12:00: 00 AM EST 1.0 {packet_mixed_with_8_ounces_of_fluid} active [facility] Mix-In [place] 17 GM eCW1 ([facility]) Acetaminophen 325 MG Oral Tablet [Tylenol] Tylenol 325 MG Ty lenol 325 MG 09/23/2020 12:00:00 AM EST 1.0 {tablet_as_needed} active Tylenol 325 MG eCW1 ([facility]) Acetaminophen 325 MG Oral Tablet [Tylenol] Tylenol 325 MG Ty lenol 325 MG 09/23/2020 12:00:00 AM EST 1.0 {tablet_as_needed} active Tylenol 325 MG eCW1 ([facility]) [facility] [place]. Devices (DURABLE MEDICAL EQUIPMENT SEE SIG) [place] [facility] [place] [id number] 06/28/2020 12:00:00 AM EST aborted Use as directed. Roll A Bout Knee Scooter Dx: [facility] Clindamycin 0.01 MG/MG Topical Gel Clindamycin Phospha te 1 % Clindamycin Phosphate 1 % 06/12/2020 12:00:00 AM EST 1.0 {application} active Clindamycin Phosphate 1 % eCW1 ([facility]) lidocaine (XYLOCAINE) 2 % urojet 20 mL [address]-9 0 01:30:00 PM EST 20 mL Urethral completed 20 mL, Urethr al, Once, Fri06/06/20 at 1330, For 1 dose [facility] Medication administered onsite Cephalexin 500 MG Oral Capsule cephALEXin (KEFLEX) cap gt 500 mg cephALEXin (KEFLEX) capsule 500 mg 06/06/2020 01:30:00 PM EST 500 mg Oral completed 500 mg, Oral, Once, Fri06/06/20 at 1330 , For 1 dose [facility] Medication administered onsite ciclopirox 10 MG/ML Medicated Shampoo Ciclopirox 1 % Ciclopi oneil 1 % 05/15/2020 12:00:00 AM EDT 1.0 {application} active Ciclopirox 1 % eCW1 ([facility]) Doxycycline Monohydrate 50 MG Oral Capsule Doxycycline Monoh ydrate 50 MG 05/15/2020 12:00:00 AM EDT 1.0 {capsule} active Doxycycline Monohydrate 50 MG eCW1 ([facility]) Doxycycline Monohydrate 50 MG Oral Capsule Doxycycline Monoh ydrate 50 MG 05/15/2020 12:00:00 AM EDT 1.0 {capsule} active Doxycycline Monohydrate 50 MG eCW1 ([facility]) alclometasone dipropionate 0.5 MG/ML Top ical Cream Alclometasone Dipropionate 0.05 % Alclometasone Dipropionate 0.05 % 05/15/2020 12:00:00 AM EDT 1.0 {application} active Alclometasone Dipr opionate 0.05 % eCW1 ([facility]) Doxycycline Monohydrate 50 MG Oral Capsule Doxycycline Monoh ydrate 50 MG 05/15/2020 12:00:00 AM EDT 1.0 {capsule} active Doxycycline Monohydrate 50 MG eCW1 ([facility]) alclometasone dipropionate 0.5 MG/ML Top ical Cream Alclometasone Dipropionate 0.05 % Alclometasone Dipropionate 0.05 % 05/15/2020 12:00:00 AM EDT 1.0 {application} active Alclometasone Dipr opionate 0.05 % eCW1 ([facility]) ciclopirox 10 MG/ML Medicated Shampoo Ciclopirox 1 % Ciclopi oneil 1 % 05/15/2020 12:00:00 AM EDT 1.0 {application} active Ciclopirox 1 % eCW1 ([facility]) ciclopirox 10 MG/ML Medicated Shampoo Ciclopirox 1 % Ciclopi oneil 1 % 05/15/2020 12:00:00 AM EDT 1.0 {application} active Ciclopirox 1 % eCW1 ([facility]) alclometasone dipropionate 0.5 MG/ML Top ical Cream Alclometasone Dipropionate 0.05 % Alclometasone Dipropionate 0.05 % 05/15/2020 12:00:00 AM EDT 1.0 {application} active Alclometasone Dipr opionate 0.05 % eCW1 ([facility]) ciclopirox 10 MG/ML Medicated Shampoo Ciclopirox 1 % Ciclopi oneil 1 % 05/15/2020 12:00:00 AM EDT 1.0 {application} active Ciclopirox 1 % eCW1 ([facility]) alclometasone dipropionate 0.5 MG/ML Top ical Cream Alclometasone Dipropionate 0.05 % Alclometasone Dipropionate 0.05 % 05/15/2020 12:00:00 AM EDT 1.0 {application} active Alclometasone Dipr opionate 0.05 % eCW1 ([facility]) Doxycycline Monohydrate 50 MG Oral Capsule Doxycycline Monoh ydrate 50 MG 05/15/2020 12:00:00 AM EDT 1.0 {capsule} active Doxycycline Monohydrate 50 MG eCW1 ([facility]) Docusate Sodium 100 MG Oral Capsule [DOK] DOK 100 MG O ral Capsule DOK 100 MG Oral Capsule 04/07/2020 12:00:00 AM EDT 100 mg Oral abort ed Take 100 mg by mouth daily [facility] Desvenlafaxine Succinate ER 100 MG Oral Tablet Extended Release 24 Hour (PRISTIQ) 4145-8562-60 04/07/2020 12:00:00 AM EDT 100 mg Oral active Take 100 mg by mouth daily [facility] Nystatin 100 UNT/MG Topical Powder Nysta tin [id number] UNIT/GM External Powder (MYCOSTATIN) Nystatin 181986 UNIT/GM External Powder (MYCOSTATIN) 0 03/27/2020 12:00:00 AM EDT aborted APPLY TO AFFECTED AREA S TWO TIMES A DAY ABDOMINAL FOLDS [facility] Methocarbamol 750 MG Oral Tablet Methocarbamol 750 MG Oral Tablet (ROBAXIN) Methocarbamol 750 MG Oral Tablet (ROBAXIN) 06/09/2019 12:00:00 AM EST aborted TAKE ONE TABLET BY MOUTH FOUR TI MES A DAY [facility]. Devices (DURABLE MEDICAL EQUIPMENT SEE SIG) [facility] [place] [id number] 10/09/2018 12:00:00 AM EDT aborted Use as directed. Rolling walker with seat Dx: Right ankle arthritis [facility] Doxycycline Monohydrate 100 MG Oral Caps ule doxycycline (MONODOX) 100 MG capsule doxycycline (MONODOX) 100 MG capsule 10/07/2018 12:00:00 AM EDT 100 mg Oral aborted Take 100 mg by mouth Two Times Daily [facility] 7 ACTUAT umeclidinium 0.0625 MG/ACTUAT D ry Powder Inhaler [Incruse] INCRUSE ELLIPTA 62.5 MCG/INH AEPB INCRUSE ELLIPTA 62.5 MCG/INH AEPB 09/24/2018 12:00:00 AM EST aborted INHALE 1 PUFF ON CE DAILY [facility] gabapentin 100 MG Oral Capsule gabapentin (NEURONTIN) 100 MG capsule gabapentin (NEURONTIN) 100 MG capsule 03/03/2018 12:00:00 AM EDT 100 mg Oral aborted Take 100 [address] mouth [address] [facility] maalox/lidocaine/diphenhydrAMINE (RADIATION MIXTURE) 1:1:1 o ral suspension 05/29/2017 12:00:00 AM EDT 10 mL Swish & Spit aborted Swish and spit 10 mLs every 2 (two) hours as needed (For Mouth Pain)Pharmacy compound: Maalox, lidocaine viscous 2 %, Benadryl 12.5 mg/5 mL [facility] Nystatin 822298 UNT/ML Topical Cream nystatin (MYCOSTA TIN) cream nystatin (MYCOSTATIN) cream 09/27/2015 12:00:00 AM EST aborted Rash Use bid to affected area [facility] Rash Biotin 10 MG Oral Tablet Biotin 61787 MCG TABS Biotin 89490 MCG TAB S 71581 ug Oral aborted Take 10,000 mcg by mouth daily [facility] Melatonin 3 MG Oral Tablet melatonin 3 MG tablet melatonin 3 MG table t 5 mg Oral aborted Take 5 mg by m outh nightly Indications: Pt takes two tabs nightly [facility] doxycycline hyclate 50 MG Oral Capsule doxycycline ( BRAMYCIN) 50 MG capsule doxycycline (VIBRAMYCIN) 50 MG capsule 100 mg Oral aborted Take 100 mg by mouth every morning [facility] Vitamin B 12 0.1 MG Oral Tablet vitamin B-12 (CYANOCOB ALAMIN) 100 MCG tablet vitamin B-12 (CYANOCOBALAMIN) 100 MCG tablet 50 ug Oral aborted Take 50 mcg by mouth daily [facility] Ibuprofen 600 MG Oral Tablet ibuprofen (ADVIL,MOTRIN) 600 MG tablet ibuprofen (ADVIL,MOTRIN) 600 MG tablet 600 mg Oral aborted Take 600 mg by mouth Three times daily as needed for Pain [facility] POLYETHYLENE GLYCOL 3350 142 MG/ML Oral Solution polyethylene glycol (MIRALAX) packet polyethylene glycol (MIRALAX) packet 17 g Oral aborted Take 17 g by mouth Two Times Daily [facility] Albuterol 0.83 MG/ML Inhalant Solution a lbuterol (PROVENTIL) (2.5 MG/3ML) 0.083% nebulizer solution albuterol (PROVENTIL) (2.5 MG/3ML) 0.083 % nebulizer solution 2.5 mg Nebulization aborted Jewel e 2.5 mg by nebulization every 6 (six) hours as needed for Wheezing. [facility] Sumatriptan 100 MG Oral Tablet sumatriptan (IMITREX) 1 00 MG tablet sumatriptan (IMITREX) 100 MG tablet 100 mg Oral aborted Take 100 mg by mouth as needed for Migraine. [facility] Vitamin B 12 0.1 MG Oral Tablet Vitamin B-12 100 MCG Oral Tablet (CYANOCOBALAMIN) Vitamin B-12 100 MCG Oral Tablet (CYANOCOBALAMIN) 50 ug Oral aborted Take 50 mcg by mouth daily [facility] Methocarbamol 750 MG Oral Tablet Methocarbamol 750 MG Oral Tablet (ROBAXIN) Methocarbamol 750 MG Oral Tablet (ROBAXIN) 750 mg Oral aborted Take 750 mg by mouth Two times daily as needed [facility] Docusate Sodium 100 MG Oral Capsule Docu sate Sodium 100 MG Oral Capsule (COLACE) Docusate Sodium 100 MG Oral Capsule (COLACE) 100 mg Oral aborted Take 100 mg by mouth daily [facility] 14 ACTUAT fluticasone furoate 0.1 MG/ACT UAT / vilanterol 0.025 MG/ACTUAT Dry Powder Inhaler Fluticasone Furoate-Vilanterol (BREO ELLIPTA) 100-25 MCG/INH AEPB Fluticasone Furoate-Vilanterol (BREO ELLIPTA) 100-25 MCG/INH AEPB 1 {puff} Inhalation aborted Inhale 1 puff into the lungs daily. [facility] gabapentin 100 MG Oral Capsule Gabapentin 100 MG Oral Capsule (NEURONTIN) Gabapentin 100 MG Oral Capsule (NEURONTIN) 100 mg Oral aborted Take 100 mg by mouth nightly [facility] Gemfibrozil 600 MG Oral Tablet Gemfibrozil 600 MG Oral Tablet (LOPID) Gemfibrozil 600 MG Oral Tablet (LOPID) 600 mg Oral aborted Take 600 mg by mouth [facility] Hydrochlorothiazide 25 MG / Lisinopril 2 0 MG Oral Tablet Lisinopril- hydroCHLOROthiazide 20-25 MG Oral Tablet (ZESTORETIC) Lisinopril- hydroCHLOROthiazide 20-25 MG Oral Tablet (ZESTORETIC) 1 {tbl } Oral aborted Take 1 tablet by mouth [facility] Ondansetron 4 MG Oral Tablet Ondansetron HCl 4 MG Oral Tablet (Zofran) Ondansetron HCl 4 MG Oral Tablet (Zofran) 4 mg Oral aborted Take 4 mg by mouth every 8 (eight) hours as needed [facility] formoterol fumarate 0.01 MG/ML Inhalant Solution Formoterol Fumarate 20 MCG/2ML Inhalation Nebulization Solution (PERFOROMIST) Formoterol Fumarate 20 MCG/2ML Inhalation Nebulization Solution (PERFOROMIST) 20 ug aborted 20 mcg [facility] Albuterol Sulfate HFA 108 (90 Base) MCG/ ACT Inhalation Aerosol Solution (PROVENTIL HFA;VENTOLIN HFA) 7305-3341-14 2 {puff} Inhalation aborted Inhale 2 puffs into the lungs every 4 (four) hours as needed [facility] Insurance Providers Payer name Policy type / Coverage type Policy ID Covered republican ID Covered republican's relationship to saavedra Policy Saavedra Plan Information [facility] [id number] Patient [id number] [facility] PLUS [facility] COMMUNITY PLAN [id number] SELF [id number] [place] Medig[place] Part B [id number] Family Dependent [id number] SELF PAY UNAVAILABLE SELF UNAVAILA BLE BLUE CHOICE OPTIONS 7 [id number] MEDICAID M [id number] Self [id number] [facility] I [id number] Self [id number] MEDICAID [id number] Sepideh [id number] [facility] COMMUNITY PLAN MCDHMO [id number] SP [id number] [facility] Community Plan Commercial [id number] Self [id number] [facility] MEDICAID [id number] Sepideh [id number] [facility] MEDICAID [id number] [id number] [facility] COMMUNITY PLAN MCDHMO [id number] SP [id number] INSURANCE COVID-19 [id number] [id number] INSURANCE COVID-19 COVID Sepideh C OVID [facility] MEDICAID [id number] S [id number] [facility] COMMUNITY PLAN MCDHMO [id number] SP [id number] [facility] Commercial Insurance Co. [id number] Self [id number] [place] Medigap Part B [id number] Self [id number] Hmo Blue Option/Medicaid Health Maintenance Organization (HMO) V [id number] Self V [id number] [facility] Health Maintenance Organization (HMO) [id number] Self [id number] [place] Med[place] Part B [id number] Self [id number] Hmo Blue Option/Medicaid Health Maintenance Organization (HMO) V [id number] Self V [id number] Medicaid Medicaid [id number] Self [id number] [facility]-Community Plan Commercial [id number] Self [id number] [facility] Other 0 [id number] Self 0 [place] Part B [id number] Self [id number] Hmo Blue Option/Medicaid Health Maintenance Organization (HMO) V [id number] Self V [id number] [facility] Health Maintenance Organization (HMO) [id number] Self 1 [id number] Community Plan - [facility] Commercial [id number] Self [id number] Community Plan - [facility] Commercial [id number] Self [id number] [facility] Other 0 [id number] Self 0 Medicaid [id number] 99 [id number] Community [facility] [employer] [id number] Self [id number] [facility] [id number] Community Plan - [facility] [employer] [id number] Self [facility] Medigap Part B [id number] Self [place] Medigap Part B [id number] Self o Blue Option/Medicaid Health Maintenance Organization (HMO) [id number] Self [facility] [id number] Funding Gates [facility] [id number] SELF [id number] [facility]/C [facility] [id number] Patient [id number] Medicaid Medicaid [id number] Self [facility]-Community Plan Commercial [id number] Self UNITED HEALTHCARE(MCAID) P [id number] S [id number] UNITED HEALTHCARE(MCAID) P [id number] S [id number] [facility] MEDICAID 7 [id number] 1 [id number] SELFPAY 5 UNAVAILABLE 1 UNAVAILA BLE MEDICAID 3 [id number] 1 [id number] MEDICAID W [id number] S [id number] BLUE CHOICE OPTION O [id number] S [id number] BLUE CROSS [place]ERMAN PLAN [id number] SP [id number] BLUE CROSS BERMAN PLAN [id number] SP [id number] MEDICAID [id number] SP [id number] HMO BLUE [id number] [employer] COMMUNITY PLAN MCDHMO [id number] SP [id number] O UNAVAILABLE UNAVAILA BLE [employer] COMMUNITY PLAN MCDHMO [id number] SP [id number] "" OT None [facility](MCAID) P [id number] S [id number] [facility] COMMUNTY PLAN [id number] [employer] COMMUNITY PLAN XIX MC [id number] 18 [id number] [employer] COMMUNITY PLAN MCDO [id number] SP [id number] BLUE CROSS BLUE SHIELD-O/P [id number] UNHC COMMUNITY PLAN XIX -RECURRING MC [id number] 18 [id number] [facility] Community Plan [id number] STPP Wrap [id number] [employer] Other 0 [id number] Self 0 [employer] Other 0 [id number] Self 0 [employer] Other 0 [id number] Self 0 [facility] MEDICAID PI PI [employer] Other 0 [id number] Self 0 [employer] Other 0 [id number] Self 0 [employer] Other 0 [id number] Self 0 Problems, Conditions, and Diagnoses Code Display Name Description Problem Type Effective Dates Data Source(s) G40.209 Localization-related (focal) (partial) symptomatic epilepsy and epileptic syndromes with complex partial seizures, not intractable, without status epilepticus Localization-related (focal) (partial) s ymptomatic epilepsy and epileptic syndromes with complex partial seizures, not intractable, without status epilepticus Diagnosis 05/31/2021 01:46:[address] [facility] S92.101S Unspecified fracture of right talus, seq uela Unspecified fracture of right talus, sequela Diagnosis 05/04/2021 11:06:52 AM EDT [facility] R56.9 Unspecified convulsions Unspecified convulsions Diagno sis 03/07/2021 07:05:44 AM EDT [facility] R26.2 Difficulty in walking, not elsewhere cla ssified DIFFICULTY IN WALKING, NOT ELSEWHERE CLASSIFIED Diagnosis 02/07/2021 12:00:00 AM EDT [facility] ([facility]) M62.81 Muscle weakness (generalized) MUSCLE WEAKNESS (GENERAL IZED) Diagnosis 02/07/2021 12:00:00 AM EDT [facility] ([facility]) M25.571 Pain in right ankle and joints of right foot PAIN IN RIGHT ANKLE AND JOINTS OF RIGHT FOOT Diagnosis 02/06/2021 12:00:00 AM EDT [facility] ([facility]) K21.9 Gastro-esophageal reflux disease without esophagitis GASTRO-ESOPHAGEAL REFLUX DISEASE WITHOUT ESOPHAGITIS Diagnosis 02/06/2021 12:00:00 AM ED T [facility] ([facility]) I10 Essential (primary) hypertension ESSENTIAL (PRIMARY) H YPERTENSION Diagnosis 02/06/2021 12:00:00 AM EDT [facility] ([facility]) N35.919 UNSPECIFIED URETHRAL STRICTURE, MALE, UN SPECIFIED SITE UNSPECIFIED URETHRAL STRICTURE, MALE, UNSPECIFIED SITE Diagnosis 02/06/2021 12:00: 00 AM EDT [facility] ([facility]) F32.9 Major depressive disorder, single episod e, unspecified MAJOR DEPRESSIVE DISORDER, SINGLE EPISODE, UNSPECIFIED Diagnosis 02/06/2021 12:00:00 AM EDT [facility] ([facility]) G40.909 Epilepsy, unspecified, not intractable, without status epilepticus EPILEPSY, UNSPECIFIED, NOT INTRACTABLE, WITHOUT STATUS EPILEPTICUS Diagnosis 02/06/2021 12:00:00 AM EDT [facility] ([facility]) Z68.43 Body mass index (BMI) 50-59.9 , adult RAHEL DY MASS INDEX [BMI] 50.0-59.9, ADULT Diagnosis 02/06/2021 12:00:00 AM EDT [facility] ([facility] [place]) E66.01 Morbid (severe) obesity due to excess ca lories MORBID (SEVERE) OBESITY DUE TO EXCESS CALORIES Diagnosis 02/06/2021 12:00:00 AM EDT [facility] ([facility] [place]) G47.33 Obstructive sleep apnea (adult) (pediatr ic) OBSTRUCTIVE SLEEP APNEA (ADULT) (PEDIATRIC) Diagnosis 02/06/2021 12:00:00 AM EDT [facility] ([facility]) J45.909 Unspecified asthma, uncomplicated UNSPECIFIED THMA, UNCOMPLICATED Diagnosis 02/06/2021 12:00:00 AM EDT [facility] ([facility]) M19.071 Primary osteoarthritis, right ankle and foot PRIMARY OSTEOARTHRITIS, RIGHT ANKLE AND FOOT Diagnosis 02/06/2021 12:00:00 AM EDT [facility] ([facility]) Z20.822 CONTACT WITH AND (SUSPECTED) EXPOSURE TO COVID-19 CONTACT WITH AND (SUSPECTED) EXPOSURE TO COVID-19 Diagnosis 02/06/2021 12:00:00 AM EDT [facility] ([facility]) Z47.89 Encounter for other orthopedic aftercare ENCOUNTER FOR OTHER ORTHOPEDIC AFTERCARE Diagnosis 02/06/2021 12:00:00 AM EDT [facility] ([facility]) M19.071 Primary osteoarthritis, right ankle and foot Primary osteoarthritis, right ankle and foot Diagnosis 01/30/2021 05:03:27 PM [facility] Closed displaced fracture of right talus with malunion, unspecified fracture morphology, subsequent encounter [S92.101P] Closed displaced fracture of right talus with malunion, unspecified fracture morphology, subsequent encounter [S92.101P] Diagnosis 01/30/2021 09:09:00 AM [facility] Arthritis of right subtalar joint [M19.0 71] Arthritis of right subtalar joint [M19.071] Diagnosis 01/30/2021 09:09:00 AM [facility] 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 Diagnosis 10/24/2020 06:01:00 PM [facility] Z79.899 Other buttermaker continuous churn (current) drug therapy O THER LONG-TERM (CURRENT) DRUG THERAPY Diagnosis 10/24/2020 06:01:00 PM [facility] Z79.891 longterm (current) use of opiate analge sic LONG-TERM (CURRENT) USE OF OPIATE ANALGESIC Diagnosis 10/24/2020 06:01:00 PM [facility] Z79.2 longterm (current) use of antibiotics L DEANN TERM (CURRENT) USE OF ANTIBIOTICS Diagnosis 10/24/2020 06:01:00 PM EDT [facility] J45.909 Unspecified asthma, uncomplicated UNSPECIFIED THMA, UNCOMPLICATED Diagnosis 10/24/2020 06:01:00 PM EDT [facility] K43.9 Ventral hernia without obstruction or ga ngrene VENTRAL HERNIA WITHOUT OBSTRUCTION OR GANGRENE Diagnosis 10/24/2020 06:01:00 PM EDT [facility] pital R10.11 Right upper quadrant pain RIGHT UPPER QUADRANT PAIN Di agnosis 10/24/2020 06:01:00 PM EDT [facility] [id number] Encounter for other preprocedural examin ation Encounter for other preprocedural examination Diagnosis 04/20/2020 02:36:00 PM EDT [facility] H6123 Impacted cerumen, bilateral Impacted cerumen, bilatera l Diagnosis 04/05/2020 10:11:00 AM EDT [facility] K29.70 [id number] Gastritis without bl eeding, unspecified chronicity, unspecified gastritis type Problem 05/17/2021 12:00:00 AM EDT [facility] ([facility]) Z47.89 Encounter for other orthopedic aftercare Encounter for other orthopedic aftercare Problem 04/12/2021 01:00:00 AM EDT [facility] ([facility]) R07.9 Chest pain Chest pain Problem 10/30/2020 12:00:00 AM ED T [facility] ([facility]) R06.02 Dyspnea Dyspnea Problem 10/30/2020 12:00:00 AM ED T [facility] ([facility]) E66.01 Morbid obesity Morbid obesity Problem 10/30/2020 12:00: 00 AM EDT [facility] ([facility]) Z71.3 Dietary management surveillance Dietary management colton veillance Problem 10/30/2020 12:00:00 AM EDT [facility] ([facility]) I10 Essential hypertension Essential hypertension Problem 10/30/2020 12:00:00 AM EDT [facility] ([facility]) E78.1 Pure hyperglyceridemia Pure hyperglyceridemia Problem 10/30/2020 12:00:00 AM EDT [facility] ([facility]) Z01.810 Preoperative cardiovascular examination Preoperative cardiovascular examination Problem 10/30/2020 12:00:00 AM EDT [facility] R07.1 Breathing painful Breathing painful Problem 10/30/2020 12:00:00 AM EDT [facility] ([facility]) E78.49 [id number] Hyperlipidemia due to dietary fat intake Problem 10/27/2020 12:00:00 AM EDT [facility] ([facility]) K59.00 Constipation Constipation, unspecified constipation ty pe Problem 09/23/2020 12:00:00 AM EST eCW1 ([facility]) M17.0 [id number] Primary osteoarthritis of both knees Prob jah 09/23/2020 12:00:00 AM EST eCW1 ([facility]) [id number] Essential hypertension Essential hypertension Problem 08/23/2020 12:00:00 AM EST MEDENT ([facility], ) G47.33 [id number] Obstructive sleep apnea Problem 08/03/2020 1 2:00:00 AM EST eCW1 ([facility]) G40.909 [id number] Seizure disorder Problem 08/03/2020 12:00:00 AM EST eCW1 ([facility]) J45.20 [id number] Mild intermittent asthma without complica tion Problem 08/03/2020 12:00:00 AM EST eCW1 ([facility]) Z68.43 [id number] BMI 50.0-59.9, adult Problem 08/03/2020 12:0 0:00 AM EST eCW1 ([facility]) Surgeries/Procedures Procedure Description Date Indications Data Source(s) EEG SLEEP DEPRIVED <td>EEG SLEEP DEPRIVED</td>< td>Routine</td><td>03/07/2021 7:30 AM EDT</td><td> Seizure</td><td> </td> 03/07/2021 07:30:00 AM EDT [facility] Seizure DRUG SCREEN QUALITATIVE TOPIRAMATE <td>TOPIRAMATE LEVEL</td><td>Routine</td><td>02/20/2021 10:19 AM EDT</td><td> Partial symptomatic epilepsy with complex partial seizures, not intractable, without status epilepticus</td><td> </td> 02/20/2021 10:19:00 AM EDT Partial symptomatic epilepsy with comple x partial seizures, not intractable, without status epilepticus [facility] Partial symptomatic epilepsy with comple x partial seizures, not intractable, without status epilepticus LEVETIRACETAM LEVEL <td>LEVETIRACETAM LEVEL</td> <td>Routine</td><td>02/20/2021 10:19 AM EDT</td><td> Partial symptomatic epilepsy with complex partial seizures, not intractable, without status epilepticus</td><td> </td> 02/20/2021 10:19:00 AM EDT Partial symptomatic epilepsy with comple x partial seizures, not intractable, without status epilepticus [facility] Partial symptomatic epilepsy with comple x partial seizures, not intractable, without status epilepticus BLOOD COUNT COMPLETE AUTO&AUTO DIFRNTL WBC COUNT <td>C BC AND DIFFERENTIAL</td><td>Routine</td><td>02/20/2021 10:19 AM EDT</td><td> Seizure</td><td> </td> 02/20/2021 10:19:00 AM EDT [facility] Seizure COMPREHENSIVE METABOLIC PANEL <td>COMPREHENSIVE METABO LIC PANEL</td><td>Routine</td><td>02/20/2021 10:19 AM EDT</td><td> Seizure</td><td> </td> 02/20/2021 10:19:00 AM EDT [facility] Seizure RESPIRATORY PATHOGEN PANEL <td>RESPIRATORY PATHOGEN PANEL</td><td>Routine</td><td>02/05/2021 9:40 PM EDT</td><td></td><td> </td> 02/05/2021 09:40:00 PM EDT [facility] COVID-19 PCR <td>COVID-19 PCR</td><td>Rou kerri</td><td>02/05/2021 9:40 PM EDT</td><td></td><td> </td> 02/05/2021 09:40:00 PM [facility] BLOOD COUNT COMPLETE AUTOMATED <td>CBC</td><td>Routine </td><td>02/05/2021 5:27 AM EDT</td><td></td><td> </td> 02/05/2021 05:27:00 AM [facility] BASIC METABOLIC PANEL CALCIUM TOTAL <td>BASIC METABOLI C PANEL</td><td>Routine</td><td>02/05/2021 5:27 AM EDT</td><td></td><td> </td> 02/05/2021 05:27:00 AM [facility] RESPIRATORY PATHOGEN PANEL <td>RESPIRATORY PATHOGEN PANEL</td><td>Routine</td><td>01/30/2021 9:11 PM EDT</td><td></td><td> </td> 01/30/2021 09:11:00 PM [facility] COVID-19 PCR <td>COVID-19 PCR</td><td>Rou kerri</td><td>01/30/2021 9:11 PM EDT</td><td></td><td> </td> 01/30/2021 09:11:00 PM [facility] ARTHRODESIS SUBTALAR <td>ARTHRODESIS SUBTALAR</td ><td></td><td>01/30/2021 1:32 PM EDT</td><td> Arthritis of right subtalar joint Closed displaced fracture of right talus with malunion, unspecified fracture morphology, subsequent encounter</td><td></td> 01/30/2021 01:32:00 PM EDT - 01/30/2021 04:32:00 PM EDT Closed displaced fracture of right talus with malunion, unspecified fracture morphology, subsequent encounterArthritis of right subtalar joint [facility] Closed displaced fracture of right talus with malunion, unspecified fracture morphology, subsequent encounter Arthritis of right subtalar joint US GUIDED PERIPHERAL NERVE BLOCK (OR ONLY) <td>US GUID ED PERIPHERAL NERVE BLOCK (OR ONLY)</td><td>Routine</td><td>01/30/2021 11:55 AM EDT</td><td></td><td></td> 01/30/2021 11:55:[address] [facility] ECHO TTHRC R-T 2D W/WOM-MODE COMPL SPEC&COLR DOP 12/19 12:00:00 AM EDT MEDENT ([facility]) OFFICE OUTPATIENT VISIT 25 MINUTES 12/12/2020 12:00:00 AM EDT MEDENT ([facility], ) Laparoscopic Incisional Hernia W/ Mesh, Reducible 11/07/2020 12:00:00 AM EDT MEDENT ([facility], ) ECG ROUTINE ECG W/LEAST 12 LDS W/I&R 10/30/2020 12:00: 00 AM EDT MED[facility] ([facility]) OFFICE OUTPATIENT VISIT 25 MINUTES 09/13/2020 12:00:00 AM EST MEDENT ([facility], ) Measure Blood Oxygen Level Continuous Overnight Monitor 09/12/2020 12:00:00 AM EST MEDENT ([facility], ) OFFICE OUTPATIENT VISIT 25 MINUTES 08/23/2020 12:00:00 AM EST MEDENT ([facility], ) OFFICE OUTPATIENT NEW 45 MINUTES 08/17/2020 12:00:00 A M EST MEDENT ([facility], ) SURGERY CASE REQUEST OUTSIDE FACILITY ONLY <td>SURGERY CASE REQUEST OUTSIDE FACILITY ONLY</td><td>Routine</td><td>06/28/2020 1:27 PM EST</td><td> Arthritis of right subtalar joint Closed displaced fracture of right talus, unspecified fracture morphology, sequela</td><td></td> 06/28/2020 01:27:23 PM EST Closed displaced fracture o f right talus, unspecified fracture morphology, sequelaArthritis of right subtalar joint [facility] Closed displaced fracture of right talus , unspecified fracture morphology, sequela Arthritis of right subtalar joint Results ID Date Data Source [id number] 05/31/2021 04:28:[address] [facility] MR BRAIN WITH AND WITHOUT CONTRAST [id number] FINAL RESULTInterpreted by:Jadiel Brasher MDEXAMINATION:MR BRAIN WITH AND WITHOUT CONTRAST [id number].CLINICAL INDICATION: Seizures.TECHNIQUE: Multiplanar and multisequence MR images of the brain were obtained on our Siemens Sonya 1.5 Jasmin MRI scanner before and after intravenous administration of 14 mL of Gadavist. COMPARISON: None at the time of this dictation. FINDINGS: There is no abnormal signal intensity within the brain parenchyma. A punctate focus of enhancement in the inferior left temporal lobe without associated abnormal T2 or FLAIR signal is present. The focus measures approximately 3.8 mm AP by 1.6 mm TV by 3.2 mm CC. It is best shown on image 105 of 221 of the coronal postcontrast images, 76 of 207 of the axial postcontrast images, and image 121 of 176 of the sagittal postcontrast images. There are no other areas of abnormal enhancement shown. The ventricles are normal in size and configuration. The basal cisterns are patent. There is no shift of the midline structures, mass-effect, extra-axial fluid collections, nor evidence of acute intracranial hemorrhage or infarction. The hippocampi are symmetrical and normal in size and signal intensity. There is no cortical dysplasia or heterotopic alberto matter. Complete opacification of the right frontal sinuses, right ethmoid air cells, and right maxillary sinus secondary to mucosal thickening with entrapped mucous secretions is present. The left frontal, ethmoid, maxillary, and sphenoid sinuses are clear. The left and right mastoid air cells are also clear. IMPRESSION:1. There is no mesial temporal sclerosis, cortical dysplasia, heterotopic alberto matter, nor acute intracranial disease process.2. A small focus of enhancement in the inferior left temporal lobe is believed to represent a vascular structure however small neoplasm cannot be entirely excluded. Follow-up imaging in 3-6 months is recommended for further evaluation.This document has been electronically signed by Jadiel Brasher MD on 05/31/2021 4:26 PM Name Value Range Interpretation Code Description Data Giovana rce(s) Supporting Document(s) ID Date Data Source [id number] 05/25/2021 11:12:[address] [facility] Name Value Range Interpretation Code Description Data Giovana rce(s) Supporting Document(s) Progress Note [facility] QICUBy5lZeJAGaWd81/ESSvyUPDkc7FeKXveGHk7UCbbBNYxU5VtCXJ4mU2nFCA8HUjMJdQfGlFpCMI2 lbm [file] DQogICAgICAgICAgICAgICAgICAgICAgICAgICAgICAgICAgICAgICAgICAgICAgICAgICAgICAgICAg ICAgICAgICAgICAgICAgICAgICAgICAgICAgICAgIC AgICAgICAgICAgDQogICAgICAgICAgICAgICAgICAgICAgICAgICAgICAgICAgICAgICAgICAgICAgIC AgICAgICAgICAgICAgICAgICAgICAgICAgICAgICAgICAgICAgICAgICAgICAgICAgICAgDQogICAgIC AgICAgICAgICAgICAgICAgICAgICAgICAgICAgICAg ICAgICAgICAgICAgICAgICAgICAgICAgICAgICAgICAgICAgICAgICAgICAgICAgICAgICAgICAgICAg ICAgDQogICAgICAgICAgICAgICAgICAgICAgICAgICAgICAgICAgICAgICAgICAgICAgICAgICAgICAg ICAgICAgICAgICAgICAgICAgICAgICAgICAgICAgIC AgICAgICAgICAgICAgDQogICAgICAgICAgICAgICAgICAgICAgICAgICAgICAgICAgICAgICAgICAgIC AgICAgICAgICAgICAgICAgICAgICAgICAgICAgICAgICAgICAgICAgICAgICAgICAgICAgICAgDQogIC AgICAgICAgICAgICAgICAgICAgICAgICAgICAgICAg ICAgICAgICAgICAgICAgICAgICAgICAgICAgICAgICAgICAgICAgICAgICAgICAgICAgICAgICAgICAg ICAgICAgDQogICAgICAgICAgICAgICAgICAgICAgICAgICAgICAgICAgICAgICAgICAgICAgICAgICAg ICAgICAgICAgICAgICAgICAgICAgICAgICAgICAgIC AgICAgICAgICAgICAgICAgDQogICAgICAgICAgICAgICAgICAgICAgICAgICAgICAgICAgICAgICAgIC AgICAgICAgICAgICAgICAgICAgICAgICAgICAgICAgICAgICAgICAgICAgICAgICAgICAgICAgICAgDQ ogICAgICAgICAgICAgICAgICAgICAgICAgICAgICAg ICAgICAgICAgICAgICAgICAgICAgICAgICAgICAgICAgICAgICAgICAgICAgICAgICAgICAgICAgICAg ICAgICAgICAgDQogICAgICAgICAgICAgICAgICAgICAgICAgICAgICAgICAgICAgICAgICAgICAgICAg ICAgICAgICAgICAgICAgICAgICAgICAgICAgICAgIC NlIRAdOACuSTYpWZZrKLVpFLQdOTe1K3eaUTJrQZKyWX5sBNy1Fq6+AHaSZaZyTVP8roIhpF4CRY7kn4 WaNGdrGEVer3WaPTl5LJ1WMWQeYSyjOU5ZLKcsfi4UUQPeOTZhnGVJq6zxHvDyLQU2CKYdOrusEY5DGE VdJ4lfugQiDMUvDEZYXMpzEVJDERgeIGQZTTBwDVTu QyXmBhLaUAAdVRDpUPFJZZR8WROuMlClQAJuJERlJcLlBCVVCH2KXpYhV8YsrU11MDtCZr8+DQplbmRv XzpSYpP1JMWou4OyTOk1WJ7KEUMvSqpei2NxWqowRUUQPRrzCX6PRPI1IAU6JEIdYt0GBZCfZ144jcCz VB9WUh9GZvPrWB7ees4BMthuMBYvXhmGTml8RLjhFB 1CxXZvVNxTht8whvHyaqCTi4HcejCsdAFMjXJ9z1CjURINsRNhRmFvYCIILZL4XFHcVlK1EwVgOlFwVI P4EJXvTL2gKHfeYW6HFAH8OPvrKZIrCIPhH3pTHiMsLGXqYRJviDiaZF4UEcVcG1YtejPxrDSrFQEpFP INCj4+FAuuveBrJufVEnOaJSGic6GsOMk1UX5GZICj ULprJJ0KTGUbeF8rHRuhYH8LRmHlJwHlRGXGQgTvD50rtSUbLFe9P8UtWnArTTUfBgypXTNaKAqzCdYd ZXMgWyBdDQogID4+ID4+TDbtUO2BXXatbpNuRJSsZw2PSPYkWMDsAA9vGCYeYRDuF5B1rFnzOLTJXdDq S1dbhvxcAY1hIIBwD027uVpoyfRlAFG7QMSeQl6PLV WbRKI7IAZiaFDdFbxqKIWTTFtuOU5IaMFrOJA2uX4rMRddEEElSYGuO7aIKoNysUgtKT46bWbminEhrF BdDQo+Va9DYW3pd8CjXDc6uiWoDLmeDELdUJisENBtQRTlHCAbXRI7AQY6GQGAHuGnGHRxIFZaZOemGH ThEXObtl8QPPOhXYR8KgmrTRQbCXGjEWWdMWnlLIEb YLH4ZvT1BVUbXZWsOM4VZwYtBLQdLRPdGEteNNZqYWSmei6NFVZqIQLdXlJ4UkKuKDPpNAVuMLmhYMLn NIQxVnEgEPNnNZVgZH2FXyDmGJKuRVVaIRmdNWCpWBXyss2QRIOxORQlOyIiPnRpFDKvFHSqLTyqVMZf XGC9SWcbMNBbXCYhLH0GFvPaCCCeQKciACAcCNQhRH Ibzc2UCLDaKSVoDKY6SMOqYFLtCEAmJOcsAIPzJKOtGwO4ZBOnLXItEC2DKdMmAZVwOOM9CKugEHHlHW Zsaw7KPOQdNFSwEDU5LkZjVCCdJPFeZXljOQGnKIK5PmKlKWJfCABxAJ9CYcGqJHVmSUs7EFaxSLDzFL Cfrz7LWZQuXGHqDNI8VvHpSXPfQGVcNInoGTAyYQWb Uzl7VEJwUSUyEJ1UXyTtPGIcTcVwKRRhOWZmGRGipi3UTUBiRKDyQMB9NSYdKMKqNECdSPbsSAQcWPL6 VoKyFDOrLHRtJV5WBySwAPCfEaw0RLcbNMTfVHKmem2LPNReOGMdHLDaMBTeXATkYGLoHKwyBNIxJYJ4 EhY8EOSjKQOuYR5OVsDaZGQbPzb8NJmnFTEsPWUqxy 6RDBHhGWLfWOl6STDqEJRaMWDoVFvkWBHoJLRkXFNnVEMnGQUdAT8CPwLyKYNjXsJyXpctOARcPLMsft 0JUONvNQN2VLC2QJGeEAZyPDWsGUngWOOgMIJtOMmuNHOrWKVcQD0PJxTfBPPzIPYoDYTxCYDzPULhpl 9OZSZdLZT1AdL0NeAoFPIsDHIxNXznDLIlWIXnQAd9 SYZxKEXlHW7XNpLtGFFcAAA1OFUuDXZdNUClti3CVVXxORK2QztxEBLbLGXoLPOvYQbxMDMfZGQjGFC2 NNFyUHUiTJ7SSuEcYDMjITDkQgVpXVFsDWKjmf5OVWDwRVU8MRxrVmUsMMTzRCVgVDklUVYjJCS1VGn2 ZZJySMNiHU3JGnWyUYDjFHYnGbvgJWSuBSBfdp4AiV UuwAhong7GQLmYMh9PuInhRXFwQDguEa8udQK8FMCdRLPCZz0DyqNvZQOhZXGHGNjuOBOkXDYoKoamDA aaPRItW9D2EwCbRCnoTLj3UIGvMeK6UpwjDmM2FDAuIIL3CEQnOkLaDQv3TQIgKIIcJvSqUKO2VORsUF I+GO5kENv+Ab0Fh6QvagD5tqBnJCt9KsC6Vy5AKNTVE2MLCq== ID Date Data Source [id number] 05/23/2021 02:39:17 PM [facility] Name Value Range Interpretation Code Description Data Giovana rce(s) Supporting Document(s) Levetiracetam [Mass/volume] in Serum or Plasma 12-46 L [facility] ID Date Data Source [id number] 05/23/2021 01:40:35 PM [facility] Name Value Range Interpretation Code Description Data Giovana rce(s) Supporting Document(s) Leukocytes [#/volume] in Blood by Automated count 8.0 10*3/uL 4-10 [facility] Erythrocytes [#/volume] in Blood by Automated count 5.72 10*6/uL 4.6- 6.1 [facility] Hemoglobin [Mass/volume] in Blood 15.8 g/dL 13.5-18 [facility] Hematocrit [Volume Fraction] of Blood by Automated count 48.6 % 4 1-53 [facility] Erythrocyte mean corpuscular volume [Entitic volume] by Auto mated count 85.0 fL 80-96 [facility] Erythrocyte mean corpuscular hemoglobin [Entitic mass] by Automated count 27.6 pg 27-33 [facility] Erythrocyte mean corpuscular hemoglobin concentration [Mass/volume] by Automated count 32.5 g/dL 32.0-[facility] Erythrocyte distribution width [Ratio] by Automated count 15.2 % 11.5-14.5 H [facility] Platelets [#/volume] in Blood by Automated count 249 10*3/uL 150-400 [facility] Differential cell count method - Blood [facility] Neutrophils/100 leukocytes in Blood by Automated count 68 % [facility] Lymphocytes/100 leukocytes in Blood by Automated count 20 % [facility] Monocytes/100 leukocytes in Blood by Automated count 9 % [facility] Eosinophils/100 leukocytes in Blood by Automated count 3 % [facility] Basophils/100 leukocytes in Blood by Automated count 0 % [facility] Neutrophils [#/volume] in Blood by Automated count 5.53 10*3/uL 1.8-7 .0 [facility] Lymphocytes [#/volume] in Blood by Automated count 1.60 10*3/uL 1.2-4 .0 [facility] Monocytes [#/volume] in Blood by Automated count 0.68 10*3/uL 0-0.8 [facility] Eosinophils [#/volume] in Blood by Automated count 0.20 10*3/uL 0-0.5 [facility] Basophils [#/volume] in Blood by Automated count 0.01 10*3/uL 0-0.2 [facility] Nucleated erythrocytes/100 leukocytes [Ratio] in Blood by Automated count 0 /100{WBCs} 0-0 [facility] ID Date Data Source [id number] 05/23/2021 01:55:[address] [facility] Name Value Range Interpretation Code Description Data Giovana rce(s) Supporting Document(s) Bicarbonate [Moles/volume] in Serum 27 mmol/L 22-29 [facility] Chloride [Moles/volume] in Serum or Plasma 104 mmol/L 98-107 [facility] Creatinine [Mass/volume] in Serum or Plasma 0.84 mg/dL 0.70-1.20 [facility] Glucose [Mass/volume] in Serum or Plasma 107 mg/dL 70-140 [facility] Potassium [Moles/volume] in Serum or Plasma 3.6 mmol/L 3.4-5.1 [facility] Sodium [Moles/volume] in Serum or Plasma 141 mmol/L 136-145 [facility] Urea nitrogen [Mass/volume] in Serum or Plasma 6 mg/dL 6-20 [facility] Anion gap 3 in Serum or Plasma 10 mmol/L 8-15 [facility] Osmolality of Serum or Plasma by calculation 290 mosm/kg 275-300 [facility] Creatinine/Urea nitrogen [Mass Ratio] in Serum or Plasma 7 [facility] Calcium [Mass/volume] in Serum or Plasma 9.1 mg/dL 8.6-10.0 [facility] Glomerular filtration rate/1.73 sq M pre dicted among non-blacks [Volume Rate/Area] in Serum or Plasma by Creatinine-based formula (MDRD) >6 0 [facility] Glomerular filtration rate/1.73 sq M pre dicted among blacks [Volume Rate/Area] in Serum or Plasma by Creatinine-based formula (MDRD) >60 [facility] ID Date Data Source [id number] 05/23/2021 01:55:[address] [facility] Name Value Range Interpretation Code Description Data Giovana rce(s) Supporting Document(s) Topiramate [Mass/volume] in Serum or Plasma <25.0 [facility] ID Date Data Source [id number] 05/15/2021 02:32:[address] [facility] Name Value Range Interpretation Code Description Data Giovana rce(s) Supporting Document(s) Progress Note [facility] IPRCMu2zVvNENgFp82/UZSriBSXtf0McTRsoDAf3VEozQJRvM8ZzZYU2sW0mDQJ1GSkUWkAySjNgEWI9 lbm [file] AgICAgICAgICAgICAgICAgICAgICAgICAgICAgICAg ICAgICAgICAgICAgICANCiAgICAgICAgICAgICAgICAgICAgICAgICAgICAgICAgICAgICAgICAgICAg ICAgICAgICAgICAgICAgICAgICAgICAgICAgICAgICAgICAgICAgICAgICAgICAgICAgICAgICANCiAg ICAgICAgICAgICAgICAgICAgICAgICAgICAgICAgIC AgICAgICAgICAgICAgICAgICAgICAgICAgICAgICAgICAgICAgICAgICAgICAgICAgICAgICAgICAgIC AgICAgICANCiAgICAgICAgICAgICAgICAgICAgICAgICAgICAgICAgICAgICAgICAgICAgICAgICAgIC AgICAgICAgICAgICAgICAgICAgICAgICAgICAgICAg ICAgICAgICAgICAgICAgICANCiAgICAgICAgICAgICAgICAgICAgICAgICAgICAgICAgICAgICAgICAg ICAgICAgICAgICAgICAgICAgICAgICAgICAgICAgICAgICAgICAgICAgICAgICAgICAgICAgICAgICAN CiAgICAgICAgICAgICAgICAgICAgICAgICAgICAgIC AgICAgICAgICAgICAgICAgICAgICAgICAgICAgICAgICAgICAgICAgICAgICAgICAgICAgICAgICAgIC AgICAgICAgICANCiAgICAgICAgICAgICAgICAgICAgICAgICAgICAgICAgICAgICAgICAgICAgICAgIC AgICAgICAgICAgICAgICAgICAgICAgICAgICAgICAg ICAgICAgICAgICAgICAgICAgICANCiAgICAgICAgICAgICAgICAgICAgICAgICAgICAgICAgICAgICAg ICAgICAgICAgICAgICAgICAgICAgICAgICAgICAgICAgICAgICAgICAgICAgICAgICAgICAgICAgICAg ICANCiAgICAgICAgICAgICAgICAgICAgICAgICAgIC AgICAgICAgICAgICAgICAgICAgICAgICAgICAgICAgICAgICAgICAgICAgICAgICAgICAgICAgICAgIC AgICAgICAgICAgICANCiAgICAgICAgICAgICAgICAgICAgICAgICAgICAgICAgICAgICAgICAgICAgIC AgICAgICAgICAgICAgICAgICAgICAgICAgICAgICAg ICAgICAgICAgICAgICAgICAgICAgICANCjw/pJNbT5unqXZiguN1E8xjTx5OFh8EZJ5nc1RfLPDaSVuu jhOxFoxQCoBmTERbFzsLFek0GXcpDV0AkZFaF2VwT4CsXErzFJ0WIZQtAFKkeCQdAGWoBWQbVdA5QRNa RPqlVZ1LgDSrDYzqWPLjLKEuUvSpDZHkRE0NEKVcG9 20hxHdJw1FYx2YQcNyDC1myj5CHjCeLJIrXzmXPkt7DGgpVL8AwROvyTSkUEUdNQDHMgMtA9azm7IfNy GaYYPMMDowNR9Bj4EyaMDjPZo+Bo8XBD3ix0DcRYbmLMIgMW6oiv2WAVqWNzEpA8UqrUuvJUZvz3esPI OjWH7wrIBnSIM0BHAyt9R1QJ0iWnJpznLkv5McIfXm CsrcPIJqQGEqNRZgUJ4zDBGgSTWwGvDyGSBHAH4GGFDgDNMkyIEpKYRjHZQBCO6NKCqzWOI7GBRfemZl pZTvIRdyUK3CGMMmsyKtImMrCZLVKXi+Cu6ILZ3ms1UeQWodItXuKS6izk5NMPkPSmNbT8S5pVCyM1H4 IRgdWb6VLDMqJIDoMnPbMGTNZWcmQZ5QOP6etzE2RT 2VcHJeYHKqGRBhxONcASf1D71jiQVxLXfhSS2JYQV+Janeen+Jb3QCEKqJCGpXCUlMgSnTQQMVgXxX6SrX8 PGp6VcV1WkSY65xSqshxBbLForUZ8ZXH4hLYUxYEEJQP4ZsCRdxB1rihClBVEvORGZScZxU18tuRDnWN WwRROiCABnKg3ADDGaH8LfbiVkzWuufxOnMFRrRAIM HP6JLZhxcdPqjZAreKteQD52cBqePZ5KLn0ZBlBnGX0ejw4ArLZgTa3DRFOqUf7ZYXTjDQMdAQTwKDG8 LQDaVoQgCGhrYWRfNJYiLOQ8BBIdAIJeSH0DTtCpYQVmHaUlEuIbDKNgBSEdky7FESGnKBNwAwS2CUAs DATjNGMaSHqyITMaGYOrEHZ1WBXcYLZyYW5CTdKaLB GmSQRhDBnySQMeMQQzbc6XPOPzMZVuMhRqLvAvNJXxJGXuAHeuXZXhFJM1Zeo0VJKiTJAhDB1HWeIrHN TeCJY4FNVlRLAkPFHakl7OHBDdFEQeAGd8OrVuMXEsCPFaFArbAXBeMPE7PKC3KNHhCXCaZF7REaZtLJ MqPWVrEVrhNTCpKMRnxu1LNHTtQOGgZcX3HRReTHEg ZDNuLJkqQTGnKRH2PPqmRWFcBVReZS7XYwLfHHKaHBt8NobjRVJzVXRnzn7VLRJaRMMuSMA4PNAiEZJb XIHxILtbODDoCMH6FHVuYDVkHLNtAY6MZpGnDHToMUw0TtKwPFGsJDBulr1IXSGbLORvSGt8LkDfOZDd VZQbEVqbUHKpJGCoZHS8BRTeAIAdOI6RJkIwGYNoDs U1NwDvIZIbEZDtnx4WPMVzYFUpZUK4ZKEjYGGqCMOqNKlzRFEdAUGoDhU6IMDbSJKzWQ6VQdYwBUHbHi P0EQMbMSAdKTXsfs7SNRUePVXsVjH1ITUtUALyCQWqXGmaRVDyAVPrGxzfMPPxCMSmHX4YDqRbWEWjOk Q6WqLlIIAeIRUkqh4QuOWueLoreq0RXMeXRp1JcGhm RBO0EOyeKo1noSMmMtHlUNEIIe6BiaDjBUQiTLPVDZryWEYeMILcBCAgMRIqITCkMlDwCpOtLNH8SmGs CrVlXNFoCUooWaX7GYI8VCQ0LbMpCXPrQyHqDnA8VYJhNpW8CbE8KCKyBRS+XO5lIEw+Da3Ci4BhipB4 rnRiQVduUzX3KP8BHHORK1JWRu== ID Date Data Source [id number] 05/04/2021 05:20:[address] [facility] XR ANKLE 3 OR MORE VIEWS [id number] RESU LTInterpreted by:ALKA Lawson ANKLE CLINICAL STATEMENT: Pain. Initial encounter.TECHNIQUE: [...] rce(s) Supporting Document(s) ID Date Data Source [id number] 04/27/2021 08:47:00 PM EDT [facility] Name Value Range Interpretation Code Description Data Giovana rce(s) Supporting Document(s) SARS coronavirus 2 RNA [Presence] in Res piratory specimen by ADONAY with probe detection NEGATIVE [facility] This lab was ordered by [facility] a nd reported by [facility]. ID Date Data Source [id number] 04/21/2021 04:03:00 PM EDT [facility] Name Value Range Interpretation Code Description Data Giovana rce(s) Supporting Document(s) SARS-CoV-2 (COVID 19) NEGATIVE - SARS-CoV-2 (COVID19) [facility] This lab was ordered by [facility] a nd reported by [facility]. ID Date Data Source [id number] 04/16/2021 11:10:08 AM EDT Laboratory [facility] [...] [facility]T 205 10*3/uL (150-450) [facility] - CORE MPV 7.6 fL (7.1-10.7) [facility] [place] [facility] - CORE NEUT % 70.5 % (35.0-75.0) [facility] LYMPH % 18.5 % (16.0-52.0) [facility] C[facility] MONO % 7.0 % (0.0-8.0) [facility] [place] [facility] - CORE EOS % 3.7 % (0.0-5.0) [facility] [place] [facility] - CORE BASO % 0.3 % (0.0-4.0) [facility] [place] [facility] - CORE NEUT # 6.6 10*3/uL (1.8-7.7) Laboratory [facility] [place] - CORE LYMPH # 1.7 10*3/uL (1.2-4.8) Laboratory [facility] [place] - CORE MONO # 0.7 10*3/uL (0.0-0.8) Laboratory [facility] - CORE Eosinophils [#/volume] in Blood by Automated count 0.3 10*3/uL (0.0-0 .5) [facility] [place] [facility] - CORE BASO # 0.0 10*3/uL (0.0-0.2) [facility] - CORE ID Date Data Source [id number] 04/16/2021 12:05:00 PM EDT [facility] - CORE Name Value Range Interpretation Code Description Data Giovana rce(s) Supporting Document(s) SODIUM 140 mmol/L (136-145) [facility] [place] [facility] [employer] - CORE POTASSIUM 3.9 mmol/L (3.6-5.2) [facility] [place] [facility] [employer] - CORE CHLORIDE 107 mmol/L (100-108) [facility] [place] [facility] [employer] - CORE CO2 27 mmol/L (22-31) [facility] [place] [facility] [employer] - CORE ANION GAP 6 mmol/L (7-16) L [facility] [place] [facility] - CORE UREA NITROGEN 9 mg/dL (7-24) [facility] CREATININE 0.81 mg/dL (0.80-1.30) [facility] - [facility] BUN/CREAT RATIO 11.1 RATIO (10.0-20.0) [facility] [place] [facility] - CORE GLUCOSE 79 mg/dL (70-99) [facility] [place] [facility] [employer] - CORE CALCIUM 8.6 mg/dL (8.4-10.2) [facility] [place] [facility] [employer] - CORE GFR >60 ml/min/1.73m2 (>59) [facility] [employer] [employer] - CORE GFR ( AMER) >60 ml/min/1.73m2 (>59) [facility] [place] [facility] [employer] - CORE GFR INTERPRETATION [facility] [place] [facility] [employer] - CORE --NORMAL KIDNEY FUNCTION OR MILD DISEASE - GFR >OR= 60CHRONIC KIDNEY DISEASE - GFR 15 - 59RENAL FAILURE - GFR <15 Est. GFR calculation based on the MDRDstudy equation, which assumes a steadystate for creatinine. Est. GFR should notbe used for medication dosing. ID Date Data Source [id number] 04/12/2021 12:39:15 PM EDT [facility] - [facility] Name Value Range Interpretation Code Description Data Giovana rce(s) Supporting Document(s) WBC 8.6 10*3/uL (4.1-11.0) [facility] - C[facility] RBC 5.27 10*6/uL (4.60-6.10) [facility] - CORE HGB 14.9 g/dL (13.5-18.0) Laboratory [...] [facility] - CORE MPV 7.8 fL (7.1-10.7) [facility] [place] [facility] - CORE NEUT % 75.4 % (35.0-75.0) H [facility] - CORE LYMPH % 17.4 % (16.0-52.0) [facility] - CORE MONO % 3.9 % (0.0-8.0) [facility] [place] [facility] - CORE EOS % 3.1 % (0.0-5.0) [facility] [place] [facility] - CORE BASO % 0.2 % (0.0-4.0) [facility] [place] [facility] - CORE NEUT # 6.5 10*3/uL (1.8-7.7) Laboratory [facility] - CORE LYMPH # 1.5 10*3/uL (1.2-4.8) Laboratory [facility] - CORE MONO # 0.3 10*3/uL (0.0-0.8) [facility] - CORE Eosinophils [#/volume] in Blood by Automated count 0.3 10*3/uL (0.0-0 .5) [facility] [place] [facility] - CORE BASO # 0.0 10*3/uL (0.0-0.2) Laboratory [facility] - CORE ID Date Data Source [id number] 04/12/2021 01:25:33 PM EDT [facility] [place] [facility] - C[facility] Name Value Range Interpretation Code Description Data Giovana rce(s) Supporting Document(s) SODIUM 141 mmol/L (136-145) [facility] [place] [facility] - CORE POTASSIUM 3.9 mmol/L (3.6-5.2) [facility] [place] [facility] - CORE CHLORIDE 108 mmol/L (100-108) [facility] [place] [facility] - CORE CO2 25 mmol/L (22-31) [facility] [place] [facility] - CORE ANION GAP 8 mmol/L (7-16) [facility] [place] [facility] - CORE UREA NITROGEN 14 mg/dL (7-24) [facility] - CORE CREATININE 0.85 mg/dL (0.80-1.30) [facility] - CORE BUN/CREAT RATIO 16.5 RATIO (10.0-20.0) [facility] [place] [facility] - CORE GLUCOSE 99 mg/dL (70-99) [facility] [place] [facility] - CORE CALCIUM 8.7 mg/dL (8.4-10.2) [facility] [place] [facility] - CORE GFR >60 ml/min/1.73m2 (>59) [facility] - CORE GFR ( AMER) >60 ml/min/1.73m2 (>59) [facility] [place] [facility] - CORE GFR INTERPRETATION [facility] [place] [facility] - CORE --NORMAL KIDNEY FUNCTION OR MILD DISEASE - GFR >OR= 60CHRONIC KIDNEY DISEASE - GFR 15 - 59RENAL FAILURE - GFR <15 Est. GFR calculation based on the MDRDstudy equation, which assumes a steadystate for creatinine. Est. GFR should notbe used for medication dosing. ID Date Data Source [id number] 04/11/2021 12:00:00 AM EDT [facility] Name Value Range Interpretation Code Description Data Giovana rce(s) Supporting Document(s) SARS coronavirus 2 Ag Negative [facility] This lab was ordered by [facility] and reported by [facility]. ID Date Data Source [id number] 04/09/2021 11:49:40 AM EDT [facility] [place] [facility] - [facility] Name Value Range Interpretation Code Description Data Giovana rce(s) Supporting Document(s) WBC 10.1 10*3/uL (4.1-11.0) [facility] - CORE RBC 5.26 10*6/uL (4.60-6.10) [facility] - CORE HGB 15.0 g/dL (13.5-18.0) [facility] - CORE HCT 45.5 % (41.0-53.0) [facility] - CORE MCV 86.6 fL (80.0-95.0) [facility] - CORE MCH 28.6 pg (27.0-32.0) [facility] - CORE MCHC 33.1 g/dL (32.0-36.0) [facility] - CORE RDW 15.4 % (10.5-14.5) H [facility] - CORE PLT 220 10*3/uL (150-450) [facility] - CORE MPV 7.8 fL (7.1-10.7) [facility] [place] [facility] - CORE NEUT % 72.3 % (35.0-75.0) [facility] - CORE LYMPH % 17.7 % (16.0-52.0) [facility] - CORE MONO % 6.3 % (0.0-8.0) [facility] [place] [facility] - CORE EOS % 3.4 % (0.0-5.0) [facility] [place] [facility] - CORE BASO % 0.3 % (0.0-4.0) [facility] [place] [facility] - CORE NEUT # 7.3 10*3/uL (1.8-7.7) [facility] [employer] [facility] - CORE LYMPH # 1.8 10*3/uL (1.2-4.8) [facility] [employer] [facility] - CORE MONO # 0.6 10*3/uL (0.0-0.8) [facility] [employer] [facility] - CORE Eosinophils [#/volume] in Blood by Automated count 0.3 10*3/uL (0.0-0 .5) [facility] [place] [facility] - CORE BASO # 0.0 10*3/uL (0.0-0.2) [facility] [employer] [facility] - CORE ID Date Data Source [id number] 04/09/2021 12:09:03 PM EDT [facility] - [facility] Name Value Range Interpretation Code Description Data Giovana rce(s) Supporting Document(s) SODIUM 140 mmol/L (136-145) [facility] [place] [facility] - CORE POTASSIUM 3.9 mmol/L (3.6-5.2) [facility] [place] [facility] - CORE CHLORIDE 109 mmol/L (100-108) H [facility] [place] [facility] - CORE CO2 24 mmol/L (22-31) [facility] [place] [facility] - CORE ANION GAP 7 mmol/L (7-16) [facility] [place] [facility] - CORE UREA NITROGEN 10 mg/dL (7-24) [facility] - CORE CREATININE 0.83 mg/dL (0.80-1.30) [facility] - CORE BUN/CREAT RATIO 12.0 RATIO (10.0-20.0) [facility] [place] [facility] - CORE GLUCOSE 88 mg/dL (70-99) [facility] [place] [facility] - CORE CALCIUM 8.5 mg/dL (8.4-10.2) [facility] [place] [facility] - CORE GFR >60 ml/min/1.73m2 (>59) [facility] - CORE GFR ( AMER) >60 ml/min/1.73m2 (>59) [facility] [place] [facility] - CORE GFR INTERPRETATION [facility] [place] [facility] - CORE --NORMAL KIDNEY FUNCTION OR MILD DISEASE - GFR >OR= 60CHRONIC KIDNEY DISEASE - GFR 15 - 59RENAL FAILURE - GFR <15 Est. GFR calculation based on the MDRDstudy equation, which assumes a steadystate for creatinine. Est. GFR should notbe used for medication dosing. ID Date Data Source [id number] 04/05/2021 12:13:42 PM EDT [facility] [employer] - CORE Name Value Range Interpretation Code [...] [facility] - CORE MPV 7.9 fL (7.1-10.7) [facility] [place] [facility] - CORE NEUT % 70.6 % (35.0-75.0) [facility] - CORE LYMPH % 19.7 % (16.0-52.0) [facility] - CORE MONO % 6.4 % (0.0-8.0) [facility] [place] [facility] - CORE EOS % 3.1 % (0.0-5.0) [facility] [place] [facility] - CORE BASO % 0.2 % (0.0-4.0) [facility] [place] [facility] - CORE NEUT # 6.8 10*3/uL (1.8-7.7) [facility] [employer] [facility] - CORE LYMPH # 1.9 10*3/uL (1.2-4.8) [facility] [employer] [facility] - CORE MONO # 0.6 10*3/uL (0.0-0.8) [facility] [employer] [facility] - CORE Eosinophils [#/volume] in Blood by Automated count 0.3 10*3/uL (0.0-0 .5) [facility] [place] [facility] - CORE BASO # 0.0 10*3/uL (0.0-0.2) [facility] [employer] [facility] - CORE ID Date Data Source [id number] 04/05/2021 12:37:40 PM EDT [facility] [place] [facility] [facility] - [facility] Name Value Range Interpretation Code Description Data Giovana rce(s) Supporting Document(s) SODIUM 142 mmol/L (136-145) [facility] [place] [facility] - CORE POTASSIUM 3.9 mmol/L (3.6-5.2) [facility] [place] [facility] - CORE CHLORIDE 107 mmol/L (100-108) [facility] [place] [facility] - CORE CO2 23 mmol/L (22-31) [facility] [place] [facility] - CORE ANION GAP 12 mmol/L (7-16) [facility] [place] [facility] - CORE UREA NITROGEN 10 mg/dL (7-24) [facility] - CORE CREATININE 0.81 mg/dL (0.80-1.30) [facility] - CORE BUN/CREAT RATIO 12.3 RATIO (10.0-20.0) [facility] [place] of [employer] CORE GLUCOSE 74 mg/dL (70-99) [facility] [place] of [employer] - CORE CALCIUM 8.3 mg/dL (8.4-10.2) L [facility] [place] of [employer] - CORE GFR >60 ml/min/1.73m2 (>59) [facility] [employer] - CORE GFR ( AMER) >60 ml/min/1.73m2 (>59) [facility] [place] [facility] [employer] - CORE GFR INTERPRETATION [facility] [place] [facility] [employer] CORE --NORMAL KIDNEY FUNCTION OR MILD DISEASE - GFR >OR= 60CHRONIC KIDNEY DISEASE - GFR 15 - 59RENAL FAILURE - GFR <15 Est. GFR calculation based on the MDRDstudy equation, which assumes a steadystate for creatinine. Est. GFR should notbe used for medication dosing. ID Date Data Source [id number] 04/03/2021 10:32:29 AM EDT [facility] [facility] [employer] Name Value Range Interpretation Code Description Data Giovana rce(s) Supporting Document(s) WBC 10.4 10*3/uL (4.1-11.0) [facility] [employer] - CORE RBC 5.47 10*6/uL (4.60-6.10) [facility] [place] [facility] of [employer] - CORE HGB 15.6 g/dL (13.5-18.0) Laboratory [...] - CORE MPV 7.7 fL (7.1-10.7) [facility] [place] [facility] - CORE NEUT % 75.4 % (35.0-75.0) H [facility] - CORE LYMPH % 14.8 % (16.0-52.0) L [facility] - CORE MONO % 6.6 % (0.0-8.0) [facility] [place] [facility] - CORE EOS % 3.0 % (0.0-5.0) [facility] [place] [facility] - CORE BASO % 0.2 % (0.0-4.0) [facility] [place] [facility] - CORE NEUT # 7.9 10*3/uL (1.8-7.7) H [facility] - CORE LYMPH # 1.5 10*3/uL (1.2-4.8) [facility] - CORE MONO # 0.7 10*3/uL (0.0-0.8) [facility] - CORE Eosinophils [#/volume] in Blood by Automated count 0.3 10*3/uL (0.0-0 .5) [facility] [place] [facility] - CORE BASO # 0.0 10*3/uL (0.0-0.2) [facility] - C[facility] ID Date Data Source [id number] 04/03/2021 11:42:45 AM EDT [facility] [place] [facility] [facility] - [facility] Name Value Range Interpretation Code Description Data Giovana rce(s) Supporting Document(s) SODIUM 142 mmol/L (136-145) [facility] [place] [facility] - CORE POTASSIUM 4.2 mmol/L (3.6-5.2) [facility] [place] [facility] - CORE CHLORIDE 109 mmol/L (100-108) H [facility] [place] [facility] - CORE CO2 23 mmol/L (22-31) [facility] [place] of [facility] - CORE ANION GAP 10 mmol/L (7-16) [facility] [place] [facility] - CORE UREA NITROGEN 12 mg/dL (7-24) Laboratory [facility] of [employer] CREATININE 0.79 mg/dL (0.80-1.30) L [facility] [employer] - CORE BUN/CREAT RATIO 15.2 RATIO (10.0-20.0) [facility] [place] of [employer] GLUCOSE 79 mg/dL (70-99) [facility] [place] of [employer] CALCIUM 8.6 mg/dL (8.4-10.2) [facility] [place] [employer] GFR >60 ml/min/1.73m2 (>59) [facility] [employer] GFR ( AMER) >60 ml/min/1.73m2 (>59) [facility] [place] [employer] GFR INTERPRETATION Laboratory [facility] [employer] --NORMAL KIDNEY FUNCTION OR MILD DISEASE - GFR >OR= 60CHRONIC KIDNEY DISEASE - GFR 15 - 59RENAL FAILURE - GFR <15 Est. GFR calculation based on the MDRDstudy equation, which assumes a steadystate for creatinine. Est. GFR should notbe used for medication dosing. ID Date Data Source [id number] 04/03/2021 12:25:31 PM EDT [facility] [employer] Name Value Range Interpretation Code Description Data Giovana rce(s) Supporting Document(s) KEPPRA @ 11 ug/mL (5-30) Laboratory [facility] [employer] ID Date Data Source [id number] 04/05/2021 12:03:46 AM EDT [facility] [place] [facility] [facility] [employer] Name Value Range Interpretation Code Description Data Giovana rce(s) Supporting Document(s) TOPIRAMATE 8.8 ug/mL [facility] [employer] [facility] [place] Reference range: 5.0 to 20.0 INTERPRETIV E INFORMATION: Topiramate Therapeutic range: 5.0-20.0 ug/mL Toxic: Not well established Pharmacokinetics varies widely, particularly with co-medications, age, and/or compromised renal function. Adverse effects may include somnolence, fatigue, and dizziness. Performed By: [employer] [address] [place] [id number] Neuropsychiatrist: Juana Mora MD ID Date Data Source [id number] 04/02/2021 12:47:[address] [facility] XR ANKLE 2 VIEWS [id number] RESULTInterp reted by:GWENDOLYN Hendrickslinical history: Status post surgical reconstruction [...] This document has been electronically signed by Edurado Chaudhari MD on 04/02/2021 12:45 PM Name Value Range Interpretation Code Description Data Giovana rce(s) Supporting Document(s) ID Date Data Source [id number] 04/02/2021 12:47:[address] [facility] XR FOOT 3 OR MORE VIEWS [id number] RESUL TInterpreted by:GWENDOLYN Hendrickslinical history: Status post [...] rce(s) Supporting Document(s) ID Date Data Source [id number] 03/29/2021 10:36:[address] [facility] Name Value Range Interpretation Code Description Data Giovana rce(s) Supporting Document(s) Progress Note [facility] HRGKNh8zHoKBOkNr47/QLUzzNKZhw2YhLLomFWd8SUdbIQJpM1RtIQF5iM1fRAQ6UTmLFsEeNnOfZNTp lbm [file] AgICAgICAgICAgICAgICAgICAgICAgICAgICAgICAg ICAgICAgICAgICAgICAgICAgICAgICAgICAgICAgICAgICAgICAgICAgICAgICAgICAgICAgDQogICAg ICAgICAgICAgICAgICAgICAgICAgICAgICAgICAgICAgICAgICAgICAgICAgICAgICAgICAgICAgICAg ICAgICAgICAgICAgICAgICAgICAgICAgICAgICAgIC AgICAgDQogICAgICAgICAgICAgICAgICAgICAgICAgICAgICAgICAgICAgICAgICAgICAgICAgICAgIC AgICAgICAgICAgICAgICAgICAgICAgICAgICAgICAgICAgICAgICAgICAgICAgDQogICAgICAgICAgIC AgICAgICAgICAgICAgICAgICAgICAgICAgICAgICAg ICAgICAgICAgICAgICAgICAgICAgICAgICAgICAgICAgICAgICAgICAgICAgICAgICAgICAgICAgDQog ICAgICAgICAgICAgICAgICAgICAgICAgICAgICAgICAgICAgICAgICAgICAgICAgICAgICAgICAgICAg ICAgICAgICAgICAgICAgICAgICAgICAgICAgICAgIC AgICAgICAgDQogICAgICAgICAgICAgICAgICAgICAgICAgICAgICAgICAgICAgICAgICAgICAgICAgIC AgICAgICAgICAgICAgICAgICAgICAgICAgICAgICAgICAgICAgICAgICAgICAgICAgDQogICAgICAgIC AgICAgICAgICAgICAgICAgICAgICAgICAgICAgICAg ICAgICAgICAgICAgICAgICAgICAgICAgICAgICAgICAgICAgICAgICAgICAgICAgICAgICAgICAgICAg DQogICAgICAgICAgICAgICAgICAgICAgICAgICAgICAgICAgICAgICAgICAgICAgICAgICAgICAgICAg ICAgICAgICAgICAgICAgICAgICAgICAgICAgICAgIC AgICAgICAgICAgDQogICAgICAgICAgICAgICAgICAgICAgICAgICAgICAgICAgICAgICAgICAgICAgIC AgICAgICAgICAgICAgICAgICAgICAgICAgICAgICAgICAgICAgICAgICAgICAgICAgICAgDQogICAgIC AgICAgICAgICAgICAgICAgICAgICAgICAgICAgICAg ICAgICAgICAgICAgICAgICAgICAgICAgICAgICAgICAgICAgICAgICAgICAgICAgICAgICAgICAgICAg HLXiAPq5T8dcTJZtNNTyDJ5lCHo7Ca5+MOaWOuFuVSO7yaYdiC0QGX7yk4NvXTerVDZxb3UyBCo3UT6H HYRlMFvtIH5JZYpqiq6XZJVjCQKemDXAv2hqMyBkHI R2FVFnOwuaPG8WKMLvE7nidxTpQHRoFETDGQ9TLxDnZ7KkxV31JUKRSq2+AEozojUiLibUYdX9BCBnf7 PzKXj3YB3LTRIbZplwt1NgRzAhUPTOZFatBX0AYFR2MIShQLDnRn5CBBOqL508ilZqYT9RQo6AQmMyCJ 5aqg5INbCuBXOnLiwXCuo7PIegBR6PuVWcOJoTdj1k wqHxuhNCi0RqowBirCOGoOKwk0DoxYtceqORVLqlPARwZC2mIf2gBKKmCUWuJkNyLKMJJT3MJVUeUZKa gQGnGWOvPEZXWU4EFLmgBJE9OMBvwbHeqNTsMBmqEZ0INWIldyMaXKlhHBWHOCb+Di7OAB2fd3DvUEgn NGFsVK4pby3DVVpQMpLuP6G3eUAgW4J3DNriLu6LSK YfHZGrOGyvVDMVTCpeKH3RZW2yyrD8IF6NcCOfUBXqWVKecRYpZKk1B97tbZJzVExlIB1WGYO+Janeen+Pg 2FUSMsVARsSSItVvRxIRVTSjUmZ8GcA3VAq6PjZ3CwKS01gWizxiVbNWoxJN3AEX0eUQBwHVZZZN0NfC OswM0hkeUaANOtGYAXSrNnL47twCMyTFFzHZE6KALh Vk6GDZGgW2KqomDvcJuuccPgFZNpNFZSIB2TSEsrqjSbySQuiDcgFX48zYpzNR0SKu8VFmAdLO6cdn2Y uGVjNn9PRKCcVa2UBCIkZALzPXZaMCR1KBXaFsJdYQfqJGZqIHBiFPZ8JMBcSXYtVK9WXwNyXPIuPRhk PfIfHTMfXZLhns1UCQTsWOQjHXy2LrIqMYBpJLGtGR uhNVObISJwCAW6OTKkYNTlVE3YVbYcKDBoYPOuKGBmEUPgDQWcbr2DVCKaGDBmZkQuDCUlZKWlFSBgZX plYXXtYLKtLHI8AKEuDRSgGE8AUhTbBJKkFEOhAdUxWVTxNCWhqi8UXHDvOVLfQcE5DYHrQFXeGGZmZS ssWMMcUNU6INu7WIIxSMPjYN2DLmHfRGRfPAN2FKNb PBKqVCBsgd3GSICgVLLtLBz0YyRrSRNxYZJlWJnpFLPjXGK7TnJrMQUjVPGeUT1FRzQzLZHgMQD4XTvh RTFcFQFjvc5OQEDlYWNnNro4PcTuMSOpNSNmXIwoLSQgOCL1CDN0UWYnCCNyDA6UOaGnHJVaTIqjVZBq IYMnAHDchw6WHHKbNGIgTjN4BuDkPWUaXUMiAVwwVS CsOQE4YQwsYSKbRUPgKW5EIwPqLVCzLOemVcDzUOUkZIIxqg4QANSlTHUgNMYfRUFoODTkGYCuBVz6ar CrfXErLMi0US1QP5CdprNjPgQCQp9Yw259TOUyRXDnOp6ZN9ayNc5sZMMmGRBEEx0RXUu9FfufI7OtVP Q2RHJyTZBgEkVwQWHhQfI9Jyy3H4SoM3B+IDxmNzIz FUFlVSM0SGLpMXOqHeT1YFXkWNbrLScwIlYqWr4fDEVCUz6+QOttuJPbvBksPQCRBpE4WUGxNEjxUSKN Rg0K ID Date Data Source [id number] 03/29/2021 10:36:[address] [facility] Name Value Range Interpretation Code Description Data Giovana rce(s) Supporting Document(s) Progress Note [facility] NBYKCs9oJfEMGjSg45/COGwyWGOcv8OzQDccEXl6YNapXHNaN2PoTMG9xQ1eUPY7DLtOPwYzMfQiAQHl lbm [file] ID Date Data Source [id number] 03/29/2021 09:57:33 AM EDT Laboratory [facility] [...] [facility] - CORE MCV 85.2 fL (80.0-95.0) [facility] - CORE MCH 28.7 pg (27.0-32.0) [facility] - CORE MCHC 33.7 g/dL (32.0-36.0) [facility] - CORE RDW 15.2 % (10.5-14.5) H [facility] - CORE PLT 208 10*3/uL (150-450) [facility] - CORE MPV 7.6 fL (7.1-10.7) [facility] [place] [facility] - CORE NEUT % 65.5 % (35.0-75.0) [facility] - CORE LYMPH % 22.2 % (16.0-52.0) [facility] - CORE MONO % 8.1 % (0.0-8.0) H [facility] [place] [facility] - CORE EOS % 3.9 % (0.0-5.0) [facility] [place] [facility] - CORE BASO % 0.3 % (0.0-4.0) [facility] [place] [facility] - CORE NEUT # 6.0 10*3/uL (1.8-7.7) [facility] - CORE LYMPH # 2.0 10*3/uL (1.2-4.8) [facility] - CORE MONO # 0.7 10*3/uL (0.0-0.8) Laboratory [employer] of [facility] - CORE Eosinophils [#/volume] in Blood by Automated count 0.4 10*3/uL (0.0-0 .5) [facility] [place] [facility] - CORE BASO # 0.0 10*3/uL (0.0-0.2) Laboratory [employer] of [facility] - CORE ID Date Data Source [id number] 03/29/2021 10:39:45 AM EDT [facility] - [facility] Name Value Range Interpretation Code Description Data Giovana rce(s) Supporting Document(s) SODIUM 141 mmol/L (136-145) [facility] [place] [facility] - CORE POTASSIUM 3.9 mmol/L (3.6-5.2) [facility] [place] [facility] - CORE CHLORIDE 107 mmol/L (100-108) [facility] [place] [facility] - CORE CO2 28 mmol/L (22-31) [facility] [place] [facility] - CORE ANION GAP 6 mmol/L (7-16) L [facility] [place] [facility] - CORE UREA NITROGEN 11 mg/dL (7-24) [facility] - CORE CREATININE 0.96 mg/dL (0.80-1.30) [facility] - CORE BUN/CREAT RATIO 11.5 RATIO (10.0-20.0) [facility] [place] [facility] - CORE GLUCOSE 75 mg/dL (70-99) [facility] [place] [facility] - CORE CALCIUM 8.9 mg/dL (8.4-10.2) [facility] [place] [facility] - CORE GFR >60 ml/min/1.73m2 (>59) Laboratory [facility] [employer] GFR ( AMER) >60 ml/min/1.73m2 (>59) Laboratory [place] [facility] GFR INTERPRETATION [facility] [place] [facility] --NORMAL KIDNEY FUNCTION OR MILD DISEASE - GFR >OR= 60CHRONIC KIDNEY DISEASE - GFR 15 - 59RENAL FAILURE - GFR <15 Est. GFR calculation based on the MDRDstudy equation, which assumes a steadystate for creatinine. Est. GFR should notbe used for medication dosing. ID Date Data Source [id number] 03/26/2021 12:08:04 PM EDT Laboratory [facility] [employer] Name Value Range Interpretation Code Description Data Giovana rce(s) Supporting Document(s) WBC 10.0 10*3/uL (4.1-11.0) Laboratory [facility] [employer] - CORE RBC 5.37 10*6/uL (4.60-6.10) Laboratory [place] [facility] [employer] - CORE HGB 15.1 g/dL (13.5-18.0) [facility] - CORE HCT 45.9 % (41.0-53.0) [facility] - CORE MCV 85.5 fL (80.0-95.0) [facility] - CORE MCH 28.2 pg (27.0-32.0) [facility] - CORE MCHC 33.0 g/dL (32.0-36.0) [facility] - CORE RDW 15.4 % (10.5-14.5) H [facility] - CORE PLT 202 10*3/uL (150-450) Laboratory [facility] [employer] - CORE MPV 7.8 fL (7.1-10.7) [facility] [place] [facility] - CORE NEUT % 69.9 % (35.0-75.0) [facility] - CORE LYMPH % 19.2 % (16.0-52.0) [facility] - CORE MONO % 7.3 % (0.0-8.0) [facility] [place] [facility] - CORE EOS % 3.3 % (0.0-5.0) [facility] [place] [facility] - CORE BASO % 0.3 % (0.0-4.0) [facility] [place] [facility] - CORE NEUT # 7.0 10*3/uL (1.8-7.7) Laboratory [employer] of [facility] - CORE LYMPH # 1.9 10*3/uL (1.2-4.8) Laboratory [employer] of [facility] - CORE MONO # 0.7 10*3/uL (0.0-0.8) Laboratory [employer] of [facility] - CORE Eosinophils [#/volume] in Blood by Automated count 0.3 10*3/uL (0.0-0 .5) [facility] [place] [facility] - CORE BASO # 0.0 10*3/uL (0.0-0.2) Laboratory [employer] of [facility] - CORE ID Date Data Source [id number] 03/26/2021 02:43:37 PM EDT [facility] - [facility] Name Value Range Interpretation Code Description Data Giovana rce(s) Supporting Document(s) SODIUM 142 mmol/L (136-145) [facility] [place] [facility] - CORE POTASSIUM 4.1 mmol/L (3.6-5.2) [facility] [place] [facility] - CORE CHLORIDE 109 mmol/L (100-108) H [facility] [place] [facility] - CORE CO2 21 mmol/L (22-31) L [facility] [place] [facility] - CORE ANION GAP 12 mmol/L (7-16) [facility] [place] [facility] - CORE UREA NITROGEN 11 mg/dL (7-24) [facility] - CORE CREATININE 0.92 mg/dL (0.80-1.30) [facility] - CORE BUN/CREAT RATIO 12.0 RATIO (10.0-20.0) [facility] [place] [facility] - CORE GLUCOSE 66 mg/dL (70-99) L [facility] [place] [facility] [employer] - CORE CALCIUM 8.9 mg/dL (8.4-10.2) [facility] [place] [facility] - CORE GFR >60 ml/min/1.73m2 (>59) Laboratory [facility] [employer] - CORE GFR ( AMER) >60 ml/min/1.73m2 (>59) [facility] [place] [employer] - CORE GFR INTERPRETATION [facility] [place] [facility] - CORE --NORMAL KIDNEY FUNCTION OR MILD DISEASE - GFR >OR= 60CHRONIC KIDNEY DISEASE - GFR 15 - 59RENAL FAILURE - GFR <15 Est. GFR calculation based on the MDRDstudy equation, which assumes a steadystate for creatinine. Est. GFR should notbe used for medication dosing. ID Date Data Source [id number] 03/22/2021 09:38:11 AM EDT [facility] [employer] - CORE Name Value Range Interpretation Code [...] [facility] - CORE MCH 28.0 pg (27.0-32.0) [facility] - CORE MCHC 32.8 g/dL (32.0-36.0) [facility] - CORE RDW 15.5 % (10.5-14.5) H [facility] - CORE PLT 221 10*3/uL (150-450) [facility] - CORE MPV 7.6 fL (7.1-10.7) [facility] [place] [facility] - CORE NEUT % 71.0 % (35.0-75.0) [facility] - CORE LYMPH % 18.9 % (16.0-52.0) Laboratory [employer] of [facility] - CORE MONO % 6.6 % (0.0-8.0) [facility] [place] [facility] - CORE EOS % 3.3 % (0.0-5.0) [facility] [place] [facility] - CORE BASO % 0.2 % (0.0-4.0) [facility] [place] [facility] - CORE NEUT # 6.6 10*3/uL (1.8-7.7) [facility] [facility] - CORE LYMPH # 1.8 10*3/uL (1.2-4.8) [facility] [facility] - CORE MONO # 0.6 10*3/uL (0.0-0.8) [facility] [employer] [facility] - CORE Eosinophils [#/volume] in Blood by Automated count 0.3 10*3/uL (0.0-0 .5) [facility] [place] [facility] - CORE BASO # 0.0 10*3/uL (0.0-0.2) [facility] [facility] - CORE ID Date Data Source [id number] 03/22/2021 10:14:01 AM EDT [facility] - CORE Name Value Range Interpretation Code Description Data Giovana rce(s) Supporting Document(s) SODIUM 141 mmol/L (136-145) [facility] [place] [facility] - CORE POTASSIUM 3.8 mmol/L (3.6-5.2) [facility] [place] [facility] - CORE CHLORIDE 106 mmol/L (100-108) [facility] [place] [facility] - CORE CO2 23 mmol/L (22-31) [facility] [place] [facility] - CORE ANION GAP 12 mmol/L (7-16) [facility] [place] [facility] - CORE UREA NITROGEN 13 mg/dL (7-24) [facility] - CORE CREATININE 0.81 mg/dL (0.80-1.30) [facility] - CORE BUN/CREAT RATIO 16.0 RATIO (10.0-20.0) [facility] [place] [facility] - CORE GLUCOSE 75 mg/dL (70-99) [facility] [place] [facility] - CORE CALCIUM 8.2 mg/dL (8.4-10.2) L [facility] [place] [facility] - CORE GFR >60 ml/min/1.73m2 (>59) [facility] [employer] - CORE GFR ( AMER) >60 ml/min/1.73m2 (>59) [facility] [place] [facility] - CORE GFR INTERPRETATION [facility] [place] [facility] - CORE --NORMAL KIDNEY FUNCTION OR MILD DISEASE - GFR >OR= 60CHRONIC KIDNEY DISEASE - GFR 15 - 59RENAL FAILURE - GFR <15 Est. GFR calculation based on the MDRDstudy equation, which assumes a steadystate for creatinine. Est. GFR should notbe used for medication dosing. ID Date Data Source [id number] 03/19/2021 10:06:24 AM EDT [facility] [employer] - CORE Name Value Range Interpretation Code [...] [facility] - CORE PLT 211 10*3/uL (150-450) [facility] - CORE MPV 7.7 fL (7.1-10.7) [facility] [place] [facility] - CORE NEUT % 67.6 % (35.0-75.0) [facility] - CORE LYMPH % 21.1 % (16.0-52.0) [facility] - CORE MONO % 6.7 % (0.0-8.0) [facility] [place] [facility] - CORE EOS % 4.3 % (0.0-5.0) [facility] [place] [facility] - CORE BASO % 0.3 % (0.0-4.0) [facility] [place] [facility] - CORE NEUT # 6.4 10*3/uL (1.8-7.7) [facility] - CORE LYMPH # 2.0 10*3/uL (1.2-4.8) [facility] - CORE MONO # 0.6 10*3/uL (0.0-0.8) [facility] - CORE Eosinophils [#/volume] in Blood by Automated count 0.4 10*3/uL (0.0-0 .5) [facility] [place] [facility] - CORE BASO # 0.0 10*3/uL (0.0-0.2) [facility] - C[facility] ID Date Data Source [id number] 03/19/2021 01:29:50 PM EDT [facility] - CORE Name Value Range Interpretation Code Description Data Giovana rce(s) Supporting Document(s) KEPPRA @ 9 ug/mL (5-30) [facility] [place] [facility] - CORE ID Date Data Source [id number] 03/19/2021 01:30:25 PM EDT [facility] - CORE Name Value Range Interpretation Code Description Data Giovana rce(s) Supporting Document(s) SODIUM 140 mmol/L (136-145) [facility] [place] [facility] - CORE POTASSIUM 3.9 mmol/L (3.6-5.2) [facility] [place] [facility] - CORE CHLORIDE 105 mmol/L (100-108) [facility] [place] [facility] [employer] - CORE CO2 23 mmol/L (22-31) [facility] [place] [facility] [employer] - CORE ANION GAP 12 mmol/L (7-16) [facility] [place] [facility] [employer] - CORE UREA NITROGEN 12 mg/dL (7-24) [facility] [employer] - CORE CREATININE 0.87 mg/dL (0.80-1.30) [facility] - CORE BUN/CREAT RATIO 13.8 RATIO (10.0-20.0) [facility] [place] [facility] [employer] - CORE GLUCOSE 60 mg/dL (70-99) L [facility] [place] [facility] [employer] - CORE CALCIUM 8.2 mg/dL (8.4-10.2) L [facility] [place] [facility] [employer] - CORE GFR >60 ml/min/1.73m2 (>59) [facility] of [employer] - CORE GFR ( AMER) >60 ml/min/1.73m2 (>59) [facility] [place] [employer] GFR INTERPRETATION [facility] [place] [facility] --NORMAL KIDNEY FUNCTION OR MILD DISEASE - GFR >OR= 60CHRONIC KIDNEY DISEASE - GFR 15 - 59RENAL FAILURE - GFR <15 Est. GFR calculation based on the MDRDstudy equation, which assumes a steadystate for creatinine. Est. GFR should notbe used for medication dosing. ID Date Data Source [id number] 03/20/2021 10:03:38 PM EDT [facility] [employer] Name Value Range Interpretation Code Description Data Giovana rce(s) Supporting Document(s) TOPIRAMATE 9.8 ug/mL [facility] [place] [facility] Reference range: 5.0 to 20.0 INTERPRETIV E INFORMATION: Topiramate Therapeutic range: 5.0-20.0 ug/mL Toxic: Not well established Pharmacokinetics varies widely, particularly with co-medications, age, and/or compromised renal function. Adverse effects may include somnolence, fatigue, and dizziness. Performed By: [facility] [address] [place] [address] Neuropsychiatrist: Juana Mora MD ID Date Data Source [id number] 03/15/2021 12:46:40 PM EDT [facility] - CORE Name Value Range Interpretation Code Description Data Giovana rce(s) Supporting Document(s) SODIUM 141 mmol/L (136-145) [facility] [place] [facility] - CORE POTASSIUM 4.2 mmol/L (3.6-5.2) [facility] [place] [facility] - CORE CHLORIDE 106 mmol/L (100-108) [facility] [place] [facility] - CORE CO2 26 mmol/L (22-31) [facility] [place] [facility] - CORE ANION GAP 9 mmol/L (7-16) [facility] [place] [facility] - CORE UREA NITROGEN 11 mg/dL (7-24) [facility] - CORE CREATININE 0.84 mg/dL (0.80-1.30) [facility] - CORE BUN/CREAT RATIO 13.1 RATIO (10.0-20.0) [facility] [place] [facility] - CORE GLUCOSE 67 mg/dL (70-99) L [facility] [place] [facility] - CORE CALCIUM 8.4 mg/dL (8.4-10.2) [facility] [place] [facility] - CORE GFR >60 ml/min/1.73m2 (>59) [facility] - CORE GFR ( AMER) >60 ml/min/1.73m2 (>59) [facility] [place] [facility] - CORE GFR INTERPRETATION [facility] [place] [facility] - CORE --NORMAL KIDNEY FUNCTION OR MILD DISEASE - GFR >OR= 60CHRONIC KIDNEY DISEASE - GFR 15 - 59RENAL FAILURE - GFR <15 Est. GFR calculation based on the MDRDstudy equation, which assumes a steadystate for creatinine. Est. GFR should notbe used for medication dosing. ID Date Data Source [id number] 03/15/2021 12:48:09 PM EDT [facility] [...] CORE RDW 15.6 % (10.5-14.5) H [facility] - CORE PLT 227 10*3/uL (150-450) [facility] - CORE MPV 7.6 fL (7.1-10.7) [facility] [place] [facility] - CORE NEUT % 69.2 % (35.0-75.0) [facility] - CORE LYMPH % 20.0 % (16.0-52.0) [facility] - CORE MONO % 6.7 % (0.0-8.0) [facility] [place] [facility] - CORE EOS % 3.8 % (0.0-5.0) [facility] [place] [facility] - CORE BASO % 0.3 % (0.0-4.0) [facility] [place] [facility] - CORE NEUT # 6.4 10*3/uL (1.8-7.7) [facility] - CORE LYMPH # 1.9 10*3/uL (1.2-4.8) [facility] - CORE MONO # 0.6 10*3/uL (0.0-0.8) [facility] - CORE Eosinophils [#/volume] in Blood by Automated count 0.4 10*3/uL (0.0-0 .5) [facility] [place] [facility] - CORE BASO # 0.0 10*3/uL (0.0-0.2) [facility] - CORE ID Date Data Source [id number] 03/12/2021 02:10:14 PM EDT Laboratory [facility] [...] - CORE PLT 221 10*3/uL (150-450) [facility] - CORE MPV 8.0 fL (7.1-10.7) [facility] [place] [facility] - CORE NEUT % 72.9 % (35.0-75.0) [facility] - CORE LYMPH % 16.4 % (16.0-52.0) [facility] - CORE MONO % 6.4 % (0.0-8.0) [facility] [place] [facility] - CORE EOS % 4.1 % (0.0-5.0) [facility] [place] [facility] - CORE BASO % 0.2 % (0.0-4.0) [facility] [place] [facility] - CORE NEUT # 7.0 10*3/uL (1.8-7.7) [facility] - CORE LYMPH # 1.6 10*3/uL (1.2-4.8) Laboratory [facility] of [facility] - CORE MONO # 0.6 10*3/uL (0.0-0.8) Laboratory [facility] of [facility] - CORE Eosinophils [#/volume] in Blood by Automated count 0.4 10*3/uL (0.0-0 .5) [facility] [place] [facility] - CORE BASO # 0.0 10*3/uL (0.0-0.2) Laboratory [facility] of [facility] - CORE ID Date Data Source [id number] 03/12/2021 02:57:16 PM EDT [facility] [place] [facility] [facility] [employer] - CORE Name Value Range Interpretation Code Description Data Giovana rce(s) Supporting Document(s) SODIUM 141 mmol/L (136-145) [facility] [place] [facility] [employer] - CORE POTASSIUM 4.0 mmol/L (3.6-5.2) [facility] [place] [facility] - CORE CHLORIDE 106 mmol/L (100-108) [facility] [place] [facility] [employer] - CORE CO2 24 mmol/L (22-31) [facility] [place] [facility] [employer] - CORE ANION GAP 11 mmol/L (7-16) [facility] [place] [facility] [employer] - CORE UREA NITROGEN 12 mg/dL (7-24) Laboratory [facility] of [facility] - CORE CREATININE 0.82 mg/dL (0.80-1.30) [facility] - CORE BUN/CREAT RATIO 14.6 RATIO (10.0-20.0) [facility] [place] [facility] - CORE GLUCOSE 64 mg/dL (70-99) L [facility] [place] [facility] [employer] - CORE CALCIUM 8.4 mg/dL (8.4-10.2) [facility] [place] [facility] [employer] - CORE GFR >60 ml/min/1.73m2 (>59) [facility] - CORE GFR ( AMER) >60 ml/min/1.73m2 (>59) [facility] [place] [facility] [employer] - CORE GFR INTERPRETATION [facility] [place] [facility] - CORE --NORMAL KIDNEY FUNCTION OR MILD DISEASE - GFR >OR= 60CHRONIC KIDNEY DISEASE - GFR 15 - 59RENAL FAILURE - GFR <15 Est. GFR calculation based on the MDRDstudy equation, which assumes a steadystate for creatinine. Est. GFR should notbe used for medication dosing. ID Date Data Source [id number] 03/08/2021 10:02:19 AM EDT [facility] [...] - CORE MPV 7.7 fL (7.1-10.7) [facility] [place] [facility] - CORE NEUT % 66.0 % (35.0-75.0) [facility] - CORE LYMPH % 20.5 % (16.0-52.0) [facility] - CORE MONO % 8.3 % (0.0-8.0) H [facility] [place] [facility] - CORE EOS % 5.0 % (0.0-5.0) [facility] [place] [facility] - CORE BASO % 0.2 % (0.0-4.0) [facility] [place] [facility] - CORE NEUT # 6.4 10*3/uL (1.8-7.7) Laboratory [employer] [facility] of [facility] - CORE LYMPH # 2.0 10*3/uL (1.2-4.8) [facility] - CORE MONO # 0.8 10*3/uL (0.0-0.8) Laboratory [employer] [facility] of [facility] - CORE Eosinophils [#/volume] in Blood by Automated count 0.5 10*3/uL (0.0-0 .5) [facility] [place] [facility] - CORE BASO # 0.0 10*3/uL (0.0-0.2) Laboratory [employer] [facility] of [facility] - CORE ID Date Data Source [id number] 03/08/2021 10:35:27 AM EDT [facility] - CORE Name Value Range Interpretation Code Description Data Giovana rce(s) Supporting Document(s) SODIUM 140 mmol/L (136-145) [facility] [place] [facility] - CORE POTASSIUM 3.6 mmol/L (3.6-5.2) [facility] [place] [facility] - CORE CHLORIDE 108 mmol/L (100-108) [facility] [place] [facility] - CORE CO2 25 mmol/L (22-31) [facility] [place] [facility] - CORE ANION GAP 7 mmol/L (7-16) [facility] [place] [facility] - CORE UREA NITROGEN 12 mg/dL (7-24) [facility] - CORE CREATININE 0.86 mg/dL (0.80-1.30) [facility] - CORE BUN/CREAT RATIO 14.0 RATIO (10.0-20.0) [facility] [place] [facility] - CORE GLUCOSE 76 mg/dL (70-99) [facility] [place] [facility] - CORE CALCIUM 8.4 mg/dL (8.4-10.2) [facility] [place] [facility] - CORE GFR >60 ml/min/1.73m2 (>59) [facility] - CORE GFR ( AMER) >60 ml/min/1.73m2 (>59) [facility] [place] [facility] - CORE GFR INTERPRETATION [facility] [place] [facility] - CORE --NORMAL KIDNEY FUNCTION OR MILD DISEASE - GFR >OR= 60CHRONIC KIDNEY DISEASE - GFR 15 - 59RENAL FAILURE - GFR <15 Est. GFR calculation based on the MDRDstudy equation, which assumes a steadystate for creatinine. Est. GFR should notbe used for medication dosing. ID Date Data Source [id number] 03/06/2021 12:42:20 PM EDT [facility] [...] - CORE MPV 8.0 fL (7.1-10.7) [facility] [place] [facility] - CORE NEUT % 60.7 % (35.0-75.0) [facility] - CORE LYMPH % 25.0 % (16.0-52.0) [facility] - CORE MONO % 9.4 % (0.0-8.0) H [facility] [place] [facility] - CORE EOS % 4.5 % (0.0-5.0) [facility] [place] [facility] - CORE BASO % 0.4 % (0.0-4.0) [facility] [place] [facility] - CORE NEUT # 5.5 10*3/uL (1.8-7.7) Laboratory [facility] of [facility] - CORE LYMPH # 2.3 10*3/uL (1.2-4.8) Laboratory [employer] [facility] of [facility] - CORE MONO # 0.9 10*3/uL (0.0-0.8) H Laboratory [facility] of [facility] - CORE Eosinophils [#/volume] in Blood by Automated count 0.4 10*3/uL (0.0-0 .5) [facility] [place] [facility] - CORE BASO # 0.0 10*3/uL (0.0-0.2) Laboratory [facility] of [facility] - CORE ID Date Data Source [id number] 03/06/2021 02:46:41 PM EDT [facility] - CORE Name Value Range Interpretation Code Description Data Giovana rce(s) Supporting Document(s) SODIUM 144 mmol/L (136-145) [facility] [place] [facility] - CORE POTASSIUM 3.5 mmol/L (3.6-5.2) L [facility] [place] [facility] - CORE CHLORIDE 107 mmol/L (100-108) [facility] [place] [facility] - CORE CO2 25 mmol/L (22-31) [facility] [place] [facility] - CORE ANION GAP 12 mmol/L (7-16) [facility] [place] [facility] - CORE UREA NITROGEN 11 mg/dL (7-24) [facility] - CORE CREATININE 0.93 mg/dL (0.80-1.30) [facility] - CORE BUN/CREAT RATIO 11.8 RATIO (10.0-20.0) [facility] [place] [facility] - CORE GLUCOSE 56 mg/dL (70-99) L [facility] [place] [facility] - CORE CALCIUM 8.6 mg/dL (8.4-10.2) [facility] [place] [facility] - CORE GFR >60 ml/min/1.73m2 (>59) [facility] - CORE GFR ( AMER) >60 ml/min/1.73m2 (>59) [facility] [place] [facility] - CORE GFR INTERPRETATION [facility] [place] [facility] - CORE --NORMAL KIDNEY FUNCTION OR MILD DISEASE - GFR >OR= 60CHRONIC KIDNEY DISEASE - GFR 15 - 59RENAL FAILURE - GFR <15 Est. GFR calculation based on the MDRDstudy equation, which assumes a steadystate for creatinine. Est. GFR should notbe used for medication dosing. ID Date Data Source [id number] 03/06/2021 02:53:20 PM EDT [facility] [facility] [employer] Name Value Range Interpretation Code Description Data Giovana rce(s) Supporting Document(s) KEPPRA @ 9 ug/mL (5-30) [facility] [place] [facility] ID Date Data Source [id number] 03/07/2021 07:10:13 PM EDT [facility] Name Value Range Interpretation Code Description Data Giovana rce(s) Supporting Document(s) TOPIRAMATE 9.8 ug/mL [facility] [place] [facility] Reference range: 5.0 to 20.0 INTERPRETIV E INFORMATION: Topiramate Therapeutic range: 5.0-20.0 ug/mL Toxic: Not well established Pharmacokinetics varies widely, particularly with co-medications, age, and/or compromised renal function. Adverse effects may include somnolence, fatigue, and dizziness. Performed By: [facility] [address] [place] [id number] Neuropsychiatrist: Juana Mora MD ID Date Data Source [id number] 03/01/2021 10:03:08 AM EDT [facility] Name Value Range Interpretation Code Description Data Giovana rce(s) Supporting Document(s) WBC 9.2 10*3/uL (4.1-11.0) [facility] [employer] RBC 5.26 10*6/uL (4.60-6.10) Laboratory [place] [facility] of [employer] HGB 15.1 g/dL (13.5-18.0) [facility] - CORE HCT 45.2 % (41.0-53.0) [facility] - CORE MCV 85.9 fL (80.0-95.0) [facility] - CORE MCH 28.7 pg (27.0-32.0) [facility] - CORE MCHC 33.4 g/dL (32.0-36.0) [facility] - CORE RDW 15.5 % (10.5-14.5) H [facility] - CORE PLT 198 10*3/uL (150-450) [facility] - CORE MPV 7.7 fL (7.1-10.7) [facility] [place] [facility] - CORE NEUT % 67.9 % (35.0-75.0) [facility] - CORE LYMPH % 19.8 % (16.0-52.0) [facility] - CORE MONO % 7.7 % (0.0-8.0) [facility] [place] [facility] - CORE EOS % 4.3 % (0.0-5.0) [facility] [place] [facility] - CORE BASO % 0.3 % (0.0-4.0) [facility] [place] [facility] - CORE NEUT # 6.2 10*3/uL (1.8-7.7) [facility] - CORE LYMPH # 1.8 10*3/uL (1.2-4.8) [facility] - CORE MONO # 0.7 10*3/uL (0.0-0.8) [facility] - CORE Eosinophils [#/volume] in Blood by Automated count 0.4 10*3/uL (0.0-0 .5) [facility] [place] [facility] - CORE BASO # 0.0 10*3/uL (0.0-0.2) [facility] - CORE ID Date Data Source [id number] 03/01/2021 10:34:43 AM EDT [facility] - CORE Name Value Range Interpretation Code Description Data Giovana rce(s) Supporting Document(s) SODIUM 140 mmol/L (136-145) [facility] [place] [facility] - CORE POTASSIUM 3.5 mmol/L (3.6-5.2) L [facility] [place] [facility] - CORE CHLORIDE 106 mmol/L (100-108) [facility] [place] [facility] - CORE CO2 27 mmol/L (22-31) [facility] [place] [facility] - CORE ANION GAP 7 mmol/L (7-16) [facility] [place] [facility] - CORE UREA NITROGEN 13 mg/dL (7-24) [facility] - CORE CREATININE 0.90 mg/dL (0.80-1.30) [facility] - CORE BUN/CREAT RATIO 14.4 RATIO (10.0-20.0) [facility] [place] [facility] - CORE GLUCOSE 73 mg/dL (70-99) [facility] [place] [facility] - CORE CALCIUM 8.7 mg/dL (8.4-10.2) [facility] [place] [facility] - CORE GFR >60 ml/min/1.73m2 (>59) [facility] - CORE GFR ( AMER) >60 ml/min/1.73m2 (>59) [facility] [place] [facility] - CORE GFR INTERPRETATION [facility] [place] [facility] - CORE --NORMAL KIDNEY FUNCTION OR MILD DISEASE - GFR >OR= 60CHRONIC KIDNEY DISEASE - GFR 15 - 59RENAL FAILURE - GFR <15 Est. GFR calculation based on the MDRDstudy equation, which assumes a steadystate for creatinine. Est. GFR should notbe used for medication dosing. ID Date Data Source [id number] 02/27/2021 06:28:[address] [facility] Name Value Range Interpretation Code Description Data Giovana rce(s) Supporting Document(s) Progress Note [facility] YNUSDa4fApPNKiQb39/YQNigTRRgq8OdTJmiZGk6QXywUVHbO4ZfQUI5mC8mOWA1QUcWHeYkIaTxQFOu lbm [file] NVq2LQEfKNXyBRJ3PWR9NkZ1QkK1SoLbMS8IAr3FQhU9RWW4mGUlNa1LBNhqTXNLDnHxUG8BNEi= ID Date Data Source [id number] 02/27/2021 06:28:09 AM EDT [facility] Name Value Range Interpretation Code Description Data Giovana rce(s) Supporting Document(s) Progress Note [facility] MUTVEt4dHgSTIwVn78/RVShqYZZoj0YgKGrtERr6JFygSTNqT1ZzYLR1bG7aBCN2UDoBVhUoNgMgTNQs lbm [file] HuXdYKR2LMfwFoLcIP4QXq7UHrA7PSC7yEGbAg5YUdG9PzsSYeLfLX4ILPl= ID Date Data Source [id number] 02/26/2021 09:48:01 AM EDT Laboratory [facility] [...] - CORE MCH 29.0 pg (27.0-32.0) [facility] - CORE MCHC 33.7 g/dL (32.0-36.0) [facility] - CORE RDW 15.7 % (10.5-14.5) H [facility] - CORE PLT 216 10*3/uL (150-450) [facility] - CORE MPV 7.3 fL (7.1-10.7) [facility] [place] [facility] - CORE NEUT % 68.5 % (35.0-75.0) [facility] - CORE LYMPH % 20.0 % (16.0-52.0) [facility] - CORE MONO % 7.0 % (0.0-8.0) [facility] [place] [facility] - CORE EOS % 4.3 % (0.0-5.0) [facility] [place] [facility] - CORE BASO % 0.2 % (0.0-4.0) [facility] [place] [facility] - CORE NEUT # 6.4 10*3/uL (1.8-7.7) [facility] - CORE LYMPH # 1.9 10*3/uL (1.2-4.8) [facility] - CORE MONO # 0.7 10*3/uL (0.0-0.8) Laboratory [employer] of [facility] - CORE Eosinophils [#/volume] in Blood by Automated count 0.4 10*3/uL (0.0-0 .5) [facility] [place] [facility] - CORE BASO # 0.0 10*3/uL (0.0-0.2) [facility] - CORE ID Date Data Source [id number] 02/26/2021 10:52:39 AM EDT [facility] - CORE Name Value Range Interpretation Code Description Data Giovana rce(s) Supporting Document(s) SODIUM 141 mmol/L (136-145) [facility] [place] [facility] - CORE POTASSIUM 3.7 mmol/L (3.6-5.2) [facility] [place] [facility] - CORE CHLORIDE 107 mmol/L (100-108) [facility] [place] [facility] - CORE CO2 27 mmol/L (22-31) [facility] [place] [employer] - CORE ANION GAP 7 mmol/L (7-16) [facility] [place] [employer] - CORE UREA NITROGEN 12 mg/dL (7-24) [facility] [employer] - CORE CREATININE 0.87 mg/dL (0.80-1.30) [facility] - CORE BUN/CREAT RATIO 13.8 RATIO (10.0-20.0) [facility] [place] [employer] - CORE GLUCOSE 71 mg/dL (70-99) [facility] [place] [employer] - CORE CALCIUM 8.7 mg/dL (8.4-10.2) [facility] [place] [employer] - CORE GFR >60 ml/min/1.73m2 (>59) Laboratory [facility] [employer] - CORE GFR ( AMER) >60 ml/min/1.73m2 (>59) [facility] [place] [employer] GFR INTERPRETATION [facility] [place] [facility] CORE --NORMAL KIDNEY FUNCTION OR MILD DISEASE - GFR >OR= 60CHRONIC KIDNEY DISEASE - GFR 15 - 59RENAL FAILURE - GFR <15 Est. GFR calculation based on the MDRDstudy equation, which assumes a steadystate for creatinine. Est. GFR should notbe used for medication dosing. ID Date Data Source [id number] 02/27/2021 11:23:02 PM EDT [facility] [employer] Name Value Range Interpretation Code Description Data Giovana rce(s) Supporting Document(s) TOPIRAMATE 10.1 ug/mL [facility] [employer] Reference range: 5.0 to 20.0 INTERPRETIV E INFORMATION: Topiramate Therapeutic range: 5.0-20.0 ug/mL Toxic: Not well established Pharmacokinetics varies widely, particularly with co-medications, age, and/or compromised renal function. Adverse effects may include somnolence, fatigue, and dizziness. Performed By: [facility] [address] [place] [id number] Neuropsychiatrist: Juana Mora MD ID Date Data Source [id number] 02/22/2021 01:50:[address] [facility] Name Value Range Interpretation Code Description Data Giovana rce(s) Supporting Document(s) Progress Note [facility] MGVFEc2uPoWQIiBq99/YBRvfZIOfl3HcVJheDMk8OSmrOEQhJ0SiXUB0mG0vCLG8LKcBUqMaDyNrIvW9 lbm [file] xT4/8Qno6gqSfyfF1xuyJBkS6C+eN6XB4xKLjNCo5oLroi5Dh6kq9hm8dt+director marketing/ILfl2A0tNlfy8LW/0 [file] AgICAgICAgICAgICAgICAgICAgICAgICAgICAgICAg KELjDNYgZFBmFEBwAVQrMMDfELEjBJHeXVPaOEUxHDDyQL4COGDdVZAfXFTqMURfRENeDUCkZMKoDRLk ICAgICAgICAgICAgICAgICAgICAgICAgICAgICAgICAgICAgICAgICAgICAgICAgICAgICAgICAgICAg FDXbFYSuNMLyQLHeTYTkDR7DQLGoRGHnAXYpVAJoXM AgICAgICAgICAgICAgICAgICAgICAgICAgICAgICAgICAgICAgICAgICAgICAgICAgICAgICAgICAgIC QpRTItHXZuLNPuULEeGRNuBISeDAXoMBWmLF3ZWXXsLRBvQINhDYZnZYAzKUDvFHXrLHKdPSDsKEMjFB AgICAgICAgICAgICAgICAgICAgICAgICAgICAgICAg ZIFlJOIiDBVtDWLtBPDcKGPrOETtHBFiDETbOKIsGQNuEUNfDK6KRDQpYKOzCLEjEXEsRRQkKJWkWAPh ICAgICAgICAgICAgICAgICAgICAgICAgICAgICAgICAgICAgICAgICAgICAgICAgICAgICAgICAgICAg UISqKMQoPCBbYJRoUPNjCMLtTR0PFXSkWTXcIGObEF AgICAgICAgICAgICAgICAgICAgICAgICAgICAgICAgICAgICAgICAgICAgICAgICAgICAgICAgICAgIC IiUEMwFTChSVPpDPReXRFiUHQtIRMrDDHuSFShKR8BDBXdFADnFNOeDSAoRXTjKUZhHVDhINPsUCQaQV AgICAgICAgICAgICAgICAgICAgICAgICAgICAgICAg TJJxMSFlXVIoLAFgDLMzQVHxTJJcCSMjHWRfPOYeJPUcEVQjIVIgCK7QDIHyEDDaPGNpYQExYGOfUKFo ICAgICAgICAgICAgICAgICAgICAgICAgICAgICAgICAgICAgICAgICAgICAgICAgICAgICAgICAgICAg RIQfMUOwCXAwPSPwESXcTOFtLYTcSQ7MMYDcCQWaEB AgICAgICAgICAgICAgICAgICAgICAgICAgICAgICAgICAgICAgICAgICAgICAgICAgICAgICAgICAgIC XpZSElBJDiPFCpLSJwTOCwIKNqKBNoMUJwKWMwPBCqER1ZNZIxDHSyOIEiVAOvJAHlLYWbFXTaLQXhRG AgICAgICAgICAgICAgICAgICAgICAgICAgICAgICAg KAFmWYNaLQIxPHYcPDSeQXOjKGPuCNCoKHHjIKFuCTRzHXUoNKQtMKXnPS8GZI56gDNwp1Y9TBOpQJ6r dyc/Sd3PZRczapLptZXhLV4XBlClOZ9ath3XSdTgHU3sew4KJPoVJuCqN7T0bSBtKLVlJYNSPdSkU80k NBwiAt05LOtaBUAaMkQoYXz2Ui6ZAsDzT4edMGHpHw J0BBPeTaN3WDWwOhK8ELHoBuEtLPTdXHQnPIBnKJAHXTA7CTKdWaUvSoJwQSUiSQpbYKUAZSNeCRJyQy RgUpWfAFTpWW7OEVEjP590mnZdUDDGAe4+LRiumyLjJsmFSsGdBUDke3QnSWt1RW7HPPLgKfjqe6CnRH OiNMBBSIsaZG0ASWG5IXYoJROuKp1AJTYbA587nsBg CK2JYr9TDwAuJF0jfd1HEXTpHRTgQhnVMyy9EFhhTD6QaUZnXMrYqr0udtLgmbWCx3WuvvUabWUiOQEj SWS1TEMjswkmYVCrdFW6OyX0LaGuAtUwLFv4DNDlJM8pGKxcRO8ROAK7EUbePKEaXGMgA1gFFuVbJMYx WFLlkAgyAG2AWcBbD9IzjlVdlAV1BRShKOXWNp6+DQ dslmRjZsyYAaWaFNPlq1UzKVc1LX4ETNHpSIesLW6COTItbF4mJGpqMZ8HFdOnOPGqXECTAyXhU25ekX TjHLs7U7NeXuYhSGJbDjjgGKWxEQsxYzMcLOItQiEpOMerGL2+ID4+OQzzQH5UCDjjrxXkJNRlAc8QLD KaQGGpYM1qMPIaPKViI5L7sIidVPYMJpHtK7azyezb AQ6nEJUtK151mCwuhmCoMERhBBOtYa4EKBOjUYB4SRFjdRNmLzytTZIODPezYG3GtPJiTMD2sQ8nVCcj GLJaEZCpV9nBTnKrpKtcWR64dEkhpjEgvWOrMYk+Yl0FQF3aq3FvDWg9xkSyRZvsXXUzEQbyPKCyZSUc CBOwUPD6WZO1ZSATXfTkRIIgWODuQKnePQEtNVRxbg 8RBKEwOWB2QzqpXlAdBIJpRONdDEnoONIoAJN5PZA3OWGsQSSsSU3DNsGaCSFrYZHfTRolBNOuYHHtfs 8ZOFHmRIGuXlB1DGKiLDLvRBXdMFijNJFjSXFjBHj0BXBzEKQsEA5ZAhViIUKkXCP6UBZqWHQgMSUbtg 4XPMFjCTIsNan6QcLxNKRoWXWnIHpbIUBrOUO7Oluv OYKzLEZsHF5DVsDhXOXsYUu1ITVcZXAsFMRxsl7QIHMqEGTmJDo7PERtWQBpYJFkAUohXNAnRETsSMhs CJOaVPAcLD4AIvIxWXBpPNC0SLzrNOXbWQRnzq0AFBPnUJBvWBVyZIFbZLKbQSEpTZiqFVJgEIL9KGDn XMDeMLCxCB8QKeOfPATpYBf5WgtaHIYhNFXykx1USX PgFAIyNCSjLaIeJJRtQZCmQPekKJYxMNTxSuWrYMOfYTAjOJ0WLjSfZMRtRhQiJuUtVNBtZWPksw3JXL OdMDYtKAM7FVPiLDIfNKZfRNxcBADdELO1FcFyJSVoFDVxYD7TLoJqFRLbXrw0VNovXQUxXVXqjd8ITA QvGRCtYVR4NTJcGPJbRURlJGurUTVpJHDpXQIsMLDe DGRsKO2WSyVzOHNfTkF5JKOeXOLgZWJehk1SOTDyQJZmRAYcNQWxPTPzOPBlPBunRRNeESBmPtltQUCi JRDyZN9VHpHdTDFqHiH6QGYoMFTrBEOxrb1HSHElCZQhBqi3KmWtAMVtWUPxJVbwJVUrAHAuOAYeULUl MHQgOG6UGmCkNRYiXKA8TcApRKXjZUYfez0FMYZxPA F7HHc0LURvAGOgWDTtFCruWOCfRTU6LDP0FITjSJFqTV2VAuSmBNBjNXXuMZRlLAPtGMXczz4DPOTaHX J2DRCcNFNwDRAlTLOhRXvqAWRoVPE2OWE7YQNhAKOcTP2XMuFzDZLyWYD4VmVhLQXmSUNypy3SCYPrZM B1BxsfZISiFVNaXBOxBYtpIZHcRPC7GpF6KEFuBOGa QH3EYbZiYXNcDJb6ZjayYYRtOEHvjd2YGPYzUNK9EMp2LMGmHBPmOVZjZQbzRVOtASM0JWZeZJTiWPNs OG7PEbZkVAvhOIKXAen2JXipS9w0SXR5Gx2DT1Llo2ZeSMZfAEGFVXyfIC2okmXzRKPsYw1BL3iXDtl3 SBXzOLt0MqChXar8BSTbYuLxHPS8X1V5WYYxFYZiIL 0sPYnkUuC2BYU9GfP5CAkcYMPtXCHrKUU5TeH8X6AxUfH5NrVyJB9XPn4JRzC0IWX8bJCgMo4BOCzsFY fSTfBsEA1FHPw= ID Date Data Source [id number] 02/22/2021 01:30:19 PM EDT [facility] [...] - CORE PLT 242 10*3/uL (150-450) [facility] - CORE MPV 7.4 fL (7.1-10.7) [facility] [place] [facility] - CORE NEUT % 66.6 % (35.0-75.0) [facility] - CORE LYMPH % 20.7 % (16.0-52.0) [facility] - CORE MONO % 7.0 % (0.0-8.0) [facility] [place] [facility] - CORE EOS % 5.4 % (0.0-5.0) H [facility] [place] [facility] - CORE BASO % 0.3 % (0.0-4.0) [facility] [place] [facility] - CORE NEUT # 5.3 10*3/uL (1.8-7.7) [facility] - CORE LYMPH # 1.6 10*3/uL (1.2-4.8) [facility] [facility] - CORE MONO # 0.5 10*3/uL (0.0-0.8) [facility] - CORE Eosinophils [#/volume] in Blood by Automated count 0.4 10*3/uL (0.0-0 .5) [facility] [place] [facility] - CORE BASO # 0.0 10*3/uL (0.0-0.2) [facility] [facility] - CORE ID Date Data Source [id number] 02/22/2021 03:19:00 PM EDT [facility] [employer] - CORE Name Value Range Interpretation Code Description Data Giovana rce(s) Supporting Document(s) SODIUM 141 mmol/L (136-145) [facility] [place] [facility] [employer] - CORE POTASSIUM 3.6 mmol/L (3.6-5.2) [facility] [place] [facility] [employer] - CORE CHLORIDE 106 mmol/L (100-108) [facility] [place] [facility] [employer] - CORE CO2 25 mmol/L (22-31) [facility] [place] [facility] [employer] - CORE ANION GAP 10 mmol/L (7-16) [facility] [place] [facility] [employer] - CORE UREA NITROGEN 10 mg/dL (7-24) [facility] [employer] - CORE CREATININE 0.92 mg/dL (0.80-1.30) [facility] BUN/CREAT RATIO 10.9 RATIO (10.0-20.0) [facility] [place] [facility] [employer] - CORE GLUCOSE 91 mg/dL (70-99) [facility] [place] [facility] [employer] - CORE CALCIUM 8.7 mg/dL (8.4-10.2) [facility] [place] [facility] [employer] - CORE GFR >60 ml/min/1.73m2 (>59) [facility] [employer] - CORE GFR ( AMER) >60 ml/min/1.73m2 (>59) [facility] [place] [facility] [employer] - CORE GFR INTERPRETATION [facility] [place] [facility] CORE --NORMAL KIDNEY FUNCTION OR MILD DISEASE - GFR >OR= 60CHRONIC KIDNEY DISEASE - GFR 15 - 59RENAL FAILURE - GFR <15 Est. GFR calculation based on the MDRDstudy equation, which assumes a steadystate for creatinine. Est. GFR should notbe used for medication dosing. ID Date Data Source [id number] 02/20/2021 05:13:02 PM [facility] Name Value Range Interpretation Code Description Data Giovana rce(s) Supporting Document(s) Levetiracetam [Mass/volume] in Serum or Plasma 14 ug/mL 12-46 [facility] ID Date Data Source [id number] 02/20/2021 12:20:16 PM [facility] Name Value Range Interpretation Code Description Data Igovana rce(s) Supporting Document(s) Leukocytes [#/volume] in Blood by Automated count 8.4 10*3/uL 4-10 [facility] Erythrocytes [#/volume] in Blood by Automated count 5.28 10*6/uL 4.6- 6.1 [facility] Hemoglobin [Mass/volume] in Blood 15.1 g/dL 13.5-18 [facility] Hematocrit [Volume Fraction] of Blood by Automated count 45.4 % 4 1-53 [facility] Erythrocyte mean corpuscular volume [Entitic volume] by Auto mated count 85.9 fL 80-96 [facility] Erythrocyte mean corpuscular hemoglobin [Entitic mass] by Automated count 28.6 pg 27-33 [facility] Erythrocyte mean corpuscular hemoglobin concentration [Mass/volume] by Automated count 33.2 g/dL 32.0-36.0 [facility] [place] Erythrocyte distribution width [Ratio] by Automated count 15.1 % 11.5-14.5 H [facility] Platelets [#/volume] in Blood by Automated count 267 10*3/uL 150-400 [facility] Differential cell count method - Blood [facility] Neutrophils/100 leukocytes in Blood by Automated count 71 % [facility] Lymphocytes/100 leukocytes in Blood by Automated count 19 % [facility] Monocytes/100 leukocytes in Blood by Automated count 6 % [facility] Eosinophils/100 leukocytes in Blood by Automated count 4 % [facility] Basophils/100 leukocytes in Blood by Automated count 0 % [facility] Neutrophils [#/volume] in Blood by Automated count 5.88 10*3/uL 1.8-7 .0 [facility] Lymphocytes [#/volume] in Blood by Automated count 1.56 10*3/uL 1.2-4 .0 [facility] Monocytes [#/volume] in Blood by Automated count 0.52 10*3/uL 0-0.8 [facility] Eosinophils [#/volume] in Blood by Automated count 0.37 10*3/uL 0-0.5 [facility] Basophils [#/volume] in Blood by Automated count 0.03 10*3/uL 0-0.2 [facility] Nucleated erythrocytes/100 leukocytes [Ratio] in Blood by Automated count 0 /100{WBCs} 0-0 [facility] ID Date Data Source [id number] 02/20/2021 12:44:32 PM EDT [facility] Name Value Range Interpretation Code Description Data Giovana rce(s) Supporting Document(s) Albumin [Mass/volume] in Serum or Plasma by Bromocresol green (BCG) dye binding method 3.9 g/dL 3.5-5.2 [facility] [place] Bilirubin.total [Mass/volume] in Serum or Plasma 0.3 mg/dL <1.2 [facility] Calcium [Mass/volume] in Serum or Plasma 9.1 mg/dL 8.6-10.0 [facility] Chloride [Moles/volume] in Serum or Plasma 104 mmol/L 98-107 [facility] Creatinine [Mass/volume] in Serum or Plasma 1.00 mg/dL 0.70-1.20 [facility] Glucose [Mass/volume] in Serum or Plasma 80 mg/dL 70-140 [facility] Alkaline phosphatase [Enzymatic activity/volume] in Serum or Plasma 96 U/L 40-129 [facility] Potassium [Moles/volume] in Serum or Plasma 3.6 mmol/L 3.4-5.1 [facility] Protein [Mass/volume] in Serum or Plasma 7.9 g/dL 6.4-8.3 [facility] Sodium [Moles/volume] in Serum or Plasma 142 mmol/L 136-145 [facility] Aspartate aminotransferase [Enzymatic activity/volume] in Serum or Plasma 24 U/L <40 [facility] Urea nitrogen [Mass/volume] in Serum or Plasma 11 mg/dL 6-20 [facility] Osmolality of Serum or Plasma by calculation 292 mosm/kg 275-300 [facility] Creatinine/Urea nitrogen [Mass Ratio] in Serum or Plasma 11 [facility] Bicarbonate [Moles/volume] in Serum 25 mmol/L 22-29 [facility] Alanine aminotransferase [Enzymatic activity/volume] in Seru m or Plasma 38 U/L <41 [facility] Anion gap 3 in Serum or Plasma 13 mmol/L 8-15 [facility] Glomerular filtration rate/1.73 sq M pre dicted among non-blacks [Volume Rate/Area] in Serum or Plasma by Creatinine-based formula (MDRD) >6 0 [facility] Glomerular filtration rate/1.73 sq M pre dicted among blacks [Volume Rate/Area] in Serum or Plasma by Creatinine-based formula (MDRD) >60 [facility] ID Date Data Source [id number] 02/20/2021 12:44:[address] [facility] Name Value Range Interpretation Code Description Data Giovana rce(s) Supporting Document(s) Topiramate [Mass/volume] in Serum or Plasma 15.7 ug/mL <25.0 [facility] ID Date Data Source [id number] 02/19/2021 01:03:07 PM EDT [facility] [...] CORE RDW 14.8 % (10.5-14.5) H [facility] - CORE PLT 234 10*3/uL (150-450) [facility] - CORE MPV 7.6 fL (7.1-10.7) [facility] [place] [facility] % 67.1 % (35.0-75.0) Laboratory [employer] [facility] - CORE LYMPH % 22.3 % (16.0-52.0) [facility] - CORE MONO % 6.1 % (0.0-8.0) [facility] [place] [facility] - CORE EOS % 4.1 % (0.0-5.0) Laboratory [facility] - CORE BASO % 0.4 % (0.0-4.0) Laboratory [facility] - CORE NEUT # 5.4 10*3/uL (1.8-7.7) [facility] [employer] [facility] - CORE LYMPH # 1.8 10*3/uL (1.2-4.8) [facility] [employer] [facility] - CORE MONO # 0.5 10*3/uL (0.0-0.8) Laboratory [facility] e of [facility] - CORE Eosinophils [#/volume] in Blood by Automated count 0.3 10*3/uL (0.0-0 .5) Laboratory [facility] - CORE BASO # 0.0 10*3/uL (0.0-0.2) [facility] [employer] [facility] - CORE ID Date Data Source [id number] 02/19/2021 02:31:03 PM EDT [facility] [place] Name Value Range Interpretation Code Description Data Giovana rce(s) Supporting Document(s) 25 HYDROXY VIT D @ 34 ng/mL (31-100) Laboratory [facility] A REVIEW OF THE LITERATURE SUGGESTS THEF OLLOWING RANGES FOR THE CLASSIFICATIONOF 25-OH VITAMIN D STATUS: VITAMIN D STATUS 25-OH VITAMIN D DEFICIENCY <20 NG/MLINSUFFICIENCY 20-30 NG/MLSUFFICIENCY 31 - 100 NG/MLTOXICITY > 100 NG/ML A PEDIATRIC REFERENCE RANGE HAS NOT BEENESTABLISHED USING THIS METHOD. ID Date Data Source [id number] 02/19/2021 03:28:57 PM EDT [facility] - CORE Name Value Range Interpretation Code Description Data Giovana rce(s) Supporting Document(s) SODIUM 141 mmol/L (136-145) [facility] [place] [facility] - CORE POTASSIUM 3.7 mmol/L (3.6-5.2) [facility] [place] [facility] - CORE CHLORIDE 106 mmol/L (100-108) [facility] [place] [facility] - CORE CO2 21 mmol/L (22-31) L [facility] [place] [facility] - CORE ANION GAP 14 mmol/L (7-16) [facility] [place] [facility] - CORE UREA NITROGEN 11 mg/dL (7-24) [facility] - CORE CREATININE 0.94 mg/dL (0.80-1.30) [facility] - CORE BUN/CREAT RATIO 11.7 RATIO (10.0-20.0) [facility] [place] [facility] - CORE GLUCOSE 100 mg/dL (70-99) H [facility] [place] [facility] - CORE CALCIUM 8.7 mg/dL (8.4-10.2) [facility] [place] [facility] - CORE GFR >60 ml/min/1.73m2 (>59) [facility] - CORE GFR ( AMER) >60 ml/min/1.73m2 (>59) [facility] [place] [facility] - CORE GFR INTERPRETATION [facility] [place] [facility] - CORE --NORMAL KIDNEY FUNCTION OR MILD DISEASE - GFR >OR= 60CHRONIC KIDNEY DISEASE - GFR 15 - 59RENAL FAILURE - GFR <15 Est. GFR calculation based on the MDRDstudy equation, which assumes a steadystate for creatinine. Est. GFR should notbe used for medication dosing. ID Date Data Source [id number] 02/15/2021 01:00:[address] [facility] XR FOOT 2 VIEWS PORT-OR [id number] RESUL TInterpreted by:Cedric Jurado MDThis statement is [...] rce(s) Supporting Document(s) ID Date Data Source [id number] 02/15/2021 11:52:26 AM EDT Laboratory [facility] [...] - CORE MCHC 33.8 g/dL (32.0-36.0) [facility] - CORE RDW 15.0 % (10.5-14.5) H [facility] - CORE PLT 311 10*3/uL (150-450) [facility] - CORE MPV 7.2 fL (7.1-10.7) [facility] [place] [facility] - CORE NEUT % 65.4 % (35.0-75.0) [facility] - CORE LYMPH % 23.5 % (16.0-52.0) [facility] - CORE MONO % 7.0 % (0.0-8.0) [facility] [place] [facility] - CORE EOS % 3.9 % (0.0-5.0) [facility] [place] [facility] - CORE BASO % 0.2 % (0.0-4.0) [facility] [place] [facility] - CORE NEUT # 5.7 10*3/uL (1.8-7.7) Laboratory [facility] of [facility] - CORE LYMPH # 2.0 10*3/uL (1.2-4.8) Laboratory [facility] of [facility] - CORE MONO # 0.6 10*3/uL (0.0-0.8) Laboratory [facility] of [facility] - CORE Eosinophils [#/volume] in Blood by Automated count 0.3 10*3/uL (0.0-0 .5) [facility] [place] [facility] - CORE BASO # 0.0 10*3/uL (0.0-0.2) Laboratory [facility] of [facility] - CORE ID Date Data Source [id number] 02/15/2021 12:33:20 PM EDT [facility] Name Value Range Interpretation Code Description Data Giovana rce(s) Supporting Document(s) SODIUM 140 mmol/L (136-145) [facility] [place] [facility] - CORE POTASSIUM 3.8 mmol/L (3.6-5.2) [facility] [place] [facility] - CORE CHLORIDE 105 mmol/L (100-108) [facility] [place] [facility] - CORE CO2 26 mmol/L (22-31) [facility] [place] [facility] - CORE ANION GAP 9 mmol/L (7-16) [facility] [place] [facility] - CORE UREA NITROGEN 14 mg/dL (7-24) [facility] - CORE CREATININE 0.93 mg/dL (0.80-1.30) [facility] - CORE BUN/CREAT RATIO 15.1 RATIO (10.0-20.0) [facility] [place] [facility] - CORE GLUCOSE 90 mg/dL (70-99) [facility] [place] [facility] - CORE CALCIUM 9.0 mg/dL (8.4-10.2) [facility] [place] [facility] - CORE GFR >60 ml/min/1.73m2 (>59) [facility] - CORE GFR ( AMER) >60 ml/min/1.73m2 (>59) [facility] [place] [facility] - CORE GFR INTERPRETATION [facility] [place] [facility] - CORE --NORMAL KIDNEY FUNCTION OR MILD DISEASE - GFR >OR= 60CHRONIC KIDNEY DISEASE - GFR 15 - 59RENAL FAILURE - GFR <15 Est. GFR calculation based on the MDRDstudy equation, which assumes a steadystate for creatinine. Est. GFR should notbe used for medication dosing. ID Date Data Source [id number] 02/13/2021 10:32:45 AM EDT [facility] [...] - CORE MCHC 33.8 g/dL (32.0-36.0) [facility] - CORE RDW 15.0 % (10.5-14.5) H [facility] - CORE PLT 338 10*3/uL (150-450) [facility] - CORE MPV 7.2 fL (7.1-10.7) [facility] [place] [facility] - CORE NEUT % 73.3 % (35.0-75.0) [facility] - CORE LYMPH % 16.1 % (16.0-52.0) [facility] - CORE MONO % 6.4 % (0.0-8.0) [facility] [place] [facility] - CORE EOS % 4.0 % (0.0-5.0) [facility] [place] [facility] - CORE BASO % 0.2 % (0.0-4.0) [facility] [place] [facility] - CORE NEUT # 6.9 10*3/uL (1.8-7.7) Laboratory [employer] [facility] - CORE LYMPH # 1.5 10*3/uL (1.2-4.8) [facility] - CORE MONO # 0.6 10*3/uL (0.0-0.8) Laboratory [facility] [facility] - CORE Eosinophils [#/volume] in Blood by Automated count 0.4 10*3/uL (0.0-0 .5) [facility] [place] [facility] - CORE BASO # 0.0 10*3/uL (0.0-0.2) Laboratory [facility] [facility] - CORE ID Date Data Source [id number] 02/13/2021 11:13:05 AM EDT [facility] Name Value Range Interpretation Code Description Data Giovana rce(s) Supporting Document(s) SODIUM 141 mmol/L (136-145) [facility] [place] [facility] - CORE POTASSIUM 3.9 mmol/L (3.6-5.2) [facility] [place] [facility] - CORE CHLORIDE 106 mmol/L (100-108) [facility] [place] [facility] - CORE CO2 26 mmol/L (22-31) [facility] [place] [facility] - CORE ANION GAP 9 mmol/L (7-16) [facility] [place] [facility] - CORE UREA NITROGEN 13 mg/dL (7-24) [facility] - CORE CREATININE 0.87 mg/dL (0.80-1.30) [facility] - CORE BUN/CREAT RATIO 14.9 RATIO (10.0-20.0) [facility] [place] [facility] - CORE GLUCOSE 78 mg/dL (70-99) [facility] [place] [facility] - CORE CALCIUM 8.9 mg/dL (8.4-10.2) [facility] [place] [facility] - CORE GFR >60 ml/min/1.73m2 (>59) [facility] - CORE GFR ( AMER) >60 ml/min/1.73m2 (>59) Laboratory [place] [facility] [place] GFR INTERPRETATION Laboratory [facility] [place] --NORMAL KIDNEY FUNCTION OR MILD DISEASE - GFR >OR= 60CHRONIC KIDNEY DISEASE - GFR 15 - 59RENAL FAILURE - GFR <15 Est. GFR calculation based on the MDRDstudy equation, which assumes a steadystate for creatinine. Est. GFR should notbe used for medication dosing. ID Date Data Source [id number] 02/09/2021 12:06:[address] [facility] Name Value Range Interpretation Code Description Data Giovana rce(s) Supporting Document(s) Progress Note [facility] CQKZRl2aBcFVSmMy19/RNGinEXPzy2NcAKdxYJx2XYczSUNuD9RqITA6vS1gPPY0TClOOdAkHjVbEjQ8 [facility] PpMhyBDfVlKAYmZbwYHiMiKJzhNpwqmUKwEZ3DjUY7ARBlZ80mNFRnRORaL4MxXCM9FSw+Dr4KYZUhhV KqQD8LYcpO9M1fm+M28vsB/Z9CUvo8g50qUS8UidELtsPsLoE12sv8pAx9LuTR3Lz/Uj+[place]+mP/Uoib [file] AgICAgICAgICAgICAgICAgICAgICAgICAgICAgICAgICAgICAgICAgICAgICAgICAgICAgICAgICAgIC VqTWQmOIMiAAZiBELuWHPgAPKkZKHfKSFdQL5WTWLtNVMzAEUdFERzEMSzKOCxJWLkAWMlVVAyFFFcTX AgICAgICAgICAgICAgICAgICAgICAgICAgICAgICAg LGOjGFNpPADaQMQrDSAjUIKxQNGyEQDkHJDzDDKfQFZcGJWwFV4BPSPhGMVqJJKcZIKwDLMxQEWlSOIm ICAgICAgICAgICAgICAgICAgICAgICAgICAgICAgICAgICAgICAgICAgICAgICAgICAgICAgICAgICAg XIToRBGrHCYvKATfUIFcGMVgWU0JXFRnWAYlGCNzBE AgICAgICAgICAgICAgICAgICAgICAgICAgICAgICAgICAgICAgICAgICAgICAgICAgICAgICAgICAgIC AkPKQvSPAoPFHkBKPaVAWjPHAuJVMlQSDaTFGlVG3RBQZlNNDhDPNtTQIvDWTuJVIeKRQeKMFrPEJeGY AgICAgICAgICAgICAgICAgICAgICAgICAgICAgICAg AXVeZLTwRXZoGNPxWBGiBVDnBEChWLXyKKCfQWTnKWVmKEAwUHOlFM4NBQPyZATrUSRaYLBaCKLoWNGt ICAgICAgICAgICAgICAgICAgICAgICAgICAgICAgICAgICAgICAgICAgICAgICAgICAgICAgICAgICAg CPWrISNbRKDpCTJoVWHgOKVsJLNdMG7IIJAfMMUhQO AgICAgICAgICAgICAgICAgICAgICAgICAgICAgICAgICAgICAgICAgICAgICAgICAgICAgICAgICAgIC SdCQHkWQFuQXUlZWSuPRHdFWKbQXFgVPMaFXCuSJAjTY1AZQPlISEpXFHvZVHsKYXvLGRpXGWbGAGuMK AgICAgICAgICAgICAgICAgICAgICAgICAgICAgICAg DWZyWGUqWOCdQHCpMCDwUZHoBXRyBVFcBQAmABFpQACrRWRzGEFzYIQrOV5EENWhPKEoKYTyUGNcSFYp ICAgICAgICAgICAgICAgICAgICAgICAgICAgICAgICAgICAgICAgICAgICAgICAgICAgICAgICAgICAg ARYaDANpKEMyIRTpYZSrGYGfJDUxECSuWG6ZPRLjBV AgICAgICAgICAgICAgICAgICAgICAgICAgICAgICAgICAgICAgICAgICAgICAgICAgICAgICAgICAgIC QdAXQdJPIjHQRqCQOhVTOmCZXyIBSaBEVeEITgBUBkCENzKD9GUX89dRDwo9F7ZPXpVB6mlwd/Pg0KDQ mljnKsaWAcKX8DNaWeGN1afp3BMfTsDM7amb6PCMxZ JrEqE6C1jBDyAKOzPRJLJjHlZ20qMWxmSs94LDliYAEhMrJdJTc3Tk4RAxDlE7rfGDMgNyD7PJEaNtY3 URDyYuQ4VAJmCmWlIWBwJGChIFIkEPGAZXS8FPTpHzYzBvPpYJZvACuzQOJKMRRnGZVeZwAwNvFaPCHi FO9ALBTcD346ufMrQXEDIa7+DQplbmRvYmoNCjQwID Dse1LuWVh5GS8BAYSsUksxw7JcCRDoPKNEZKxpGX3NPAH2ZQVuYTOvIc8TNETzV924nsBiZJ3KLq6GFx EdVN1xdu6HYDFlMSDoWjoUTsp6WZhdMV1GvLJgHJnBwj1ozsEjdmBNo9ZllbDzrNSWxUY6c6QuUZJAoX AuYxNxSHURTCE9CEdiMr0kPNCqIBO9LiC2LTLDHL5Z ZKDgVURqvVHiCNFpDSZKWV8CWXjtQPV5KQRqssEohHTnMVetIR7LHIBkfeGnXMRjEOQNYLy+Di0DTF0f e9OqZLw4XgQyII4iky1FRUlRCpCuM2W2zZBxU8Z2TFfkTr3UVWNqGRUuIqkvGCCHXFpoTZ6BVJ6wezR3 OZ1JaNIgPJRuDFAtkYFoFZb3I12wkHVjFJfcVL5YOF A+Janeen+Mx1WPLQhSUQhZXOsOhHaVRQCIjRwA0SrZ5JCp7HdQ4BuDO78wLawdkPmGCnnBM7DWA2nYUSnSB MPRZ6DmYLkeX9nnjQ1FVZgFCVMYkYoD97tlUVwRURvWOE1VHBnIf3GMQJdL8VoifSogKzenyMmEMMiSE CXSB8PEJuxjqInlKSmrBouBX48bWsiBT9VZh6MPaAm DC7yct1TiLYbKt6WGOE5Ee1MTOEyEBPkQFQlKKJ6LFCmMxPcXQteSCJeAHWuJBI8TWRsXGYgIU4TQlPm YSShUJD6BbBkUKGeICLztw5GOSUnWQQ4ZlB2SdCxHDKrOHKfDZuyPZOgTHUfCCT1AIApAVNsSM1NAxSq BOJzTVNyEPpbHOVjPHBmfr3WRQGxZFRlJzTaNQJiPV SjQWCiJGctGYWhKST1OHG7PINoCVNeHW5IUpEgHJYoXXElGXGjZBSoPDNgzh4XAHZpDBOrTWb5MiTdEZ ZlQRTsWXlbPCRjXVI3RQY8IZMxHFEyCP3OWlKtMUVyUPNtGQAfDHUyHBWbon0SMRCcBCDsKOPpPMHgGG ZxMIJjDWcfYXWzQYN1JYXgPAQeRGMbJU8JJrNyYFUy REX6HmWmFAPdTWRmzi8ZBMGzWXUiQSWqAuGqTMReVMAvPNkxEXJxCDM6YaY9DGDqKNEeOK3TJwIbYXPk VqI7RsqmWVTyQPYhmh3VHWYqBXFjMTf3DmXbUWPwKWVsYUwfXRQlNUFdMFoiFYFvGCLwWZ4BGxGxGRRk OdMjFCffINZzHNBbwu8VZAPxMRViUnC9ZZGyXAAsWW ZzOPonLQRyUEJ1MyZ1MZVsXLDxTR2QInTuZIMrSiv0FcQkXTOuTNPiqj5DVWMuNSSmHRU0XLDlLLKzLR YuYDecRBHaIJVpGJJvHUJvRENfBQ0BLdFuGFJsZrJbZNjgAEXiCSVvus9KUNCfYKVzRFI5QMAhTEJfQF UhNVmcOEYnSNZpANH7ULQbHYMuXO4XBuMaEZEoWsH6 XLYbCGTgOYXmgi0QXGJcRULrPGtpFVIkBTEkIIPfVRmmTSXzCKBfZlG1TXFrBKBrJT1RJnZnMUCbYKF4 GPIeMMUqBFUmjs5OGZZgCDR2Spf4EoHxLSTzPXEqZYlyTCNvOFQ5XVPsKLSlLLWsJU0QZzZaQZWsAVCn XLhbCHFaWDOxrh1XVJMsONS1KQDmLdXtTSFgZUXuMY dwCBGmYMX5QkSkPXIxWCVeCB1VQhBnCAVtJRD9WVtuTGYeXHRxkb3NRYTrVJX0DDggWqYpWJXbBPTrLH agQJKoKGT0QUO2BFIiSDYkKY6QWlKePLOaYIh6JRymVBZbFPIhwh7VZFUwKCN2DxNwSyMbRWYeGIRdDR d0yxHjtUWoNSr7WS0QD6XhfcAgMUSYFa8Dz709LKLp JJJrNy0GB5zuDc2vPYZdGCTHYw7PPGp7LyB9VKSfJvG6QqC1LBJ8DRVgTVZoZCOzBiHnBHn9C1D+IDwy ENN5DTBoAkMaVVG9KEzcNYHpW5HhM1YuZpEfCVd0Oo3zJMLEMi7+IQgimOPwuNjiMOHJFvO6OQhyUEfs MOBDOd2J ID Date Data Source [id number] 02/08/2021 11:53:26 AM EDT Laboratory [facility] [...] - CORE MPV 7.2 fL (7.1-10.7) [facility] [place] [facility] - CORE NEUT % 70.1 % (35.0-75.0) [facility] - CORE LYMPH % 17.3 % (16.0-52.0) [facility] - CORE MONO % 8.1 % (0.0-8.0) H [facility] [place] [facility] - CORE EOS % 4.2 % (0.0-5.0) [facility] [place] [facility] - CORE BASO % 0.3 % (0.0-4.0) [facility] [place] [facility] - CORE NEUT # 7.0 10*3/uL (1.8-7.7) [facility] - CORE LYMPH # 1.7 10*3/uL (1.2-4.8) [facility] - CORE MONO # 0.8 10*3/uL (0.0-0.8) Laboratory [facility] of [facility] - CORE Eosinophils [#/volume] in Blood by Automated count 0.4 10*3/uL (0.0-0 .5) Laboratory [place] [facility] - CORE BASO # 0.0 10*3/uL (0.0-0.2) Laboratory [facility] of [facility] - CORE ID Date Data Source [id number] 02/08/2021 12:28:59 PM EDT [facility] Name Value Range Interpretation Code Description Data Giovana rce(s) Supporting Document(s) KEPPRA @ 8 ug/mL (5-30) Laboratory [place] of [facility] - CORE ID Date Data Source [id number] 02/08/2021 12:52:00 PM EDT [facility] Name Value Range Interpretation Code Description Data Giovana rce(s) Supporting Document(s) SODIUM 142 mmol/L (136-145) [facility] [place] [facility] - CORE POTASSIUM 3.7 mmol/L (3.6-5.2) [facility] [place] [facility] - CORE CHLORIDE 105 mmol/L (100-108) [facility] [place] [facility] - CORE CO2 28 mmol/L (22-31) [facility] [place] [facility] - CORE ANION GAP 9 mmol/L (7-16) [facility] [place] [facility] - CORE UREA NITROGEN 17 mg/dL (7-24) [facility] - CORE CREATININE 0.79 mg/dL (0.80-1.30) L [facility] - CORE BUN/CREAT RATIO 21.5 RATIO (10.0-20.0) H [facility] [place] [facility] - CORE GLUCOSE 60 mg/dL (70-99) L [facility] [place] [facility] - CORE CALCIUM 8.7 mg/dL (8.4-10.2) [facility] [place] [facility] - CORE TOTAL PROTEIN 6.6 g/dL (6.4-8.2) [facility] - CORE ALBUMIN 2.8 g/dL (3.5-4.6) L [facility] [place] [facility] - CORE GLOBULIN 3.8 g/dL (2.7-4.3) [facility] [place] [facility] - CORE ALB/GLOB RATIO 0.7 RATIO Laboratory [facility] - CORE ALKALINE PHOSPHATASE 91 U/L (45-117) Laborator [facility] [place] of [employer] - CORE BILIRUBIN,TOTAL 0.3 mg/dL (0.0-1.0) Laboratory [facility] of [employer] CORE PLEASE NOTE:Total bilirubin results may be falselyelevated in patients taking Eltrombopag. AST (SGOT) 26 U/L (11-39) Laboratory [place] of [employer] - CORE ALT (SGPT) 44 U/L (12-78) [facility] [place] [facility] - CORE GFR >60 ml/min/1.73m2 (>59) Laboratory [facility] [employer] - CORE GFR ( AMER) >60 ml/min/1.73m2 (>59) Laboratory [place] of [employer] - CORE GFR INTERPRETATION Laboratory [place] of [employer] - CORE --NORMAL KIDNEY FUNCTION OR MILD DISEASE - GFR >OR= 60CHRONIC KIDNEY DISEASE - GFR 15 - 59RENAL FAILURE - GFR <15 Est. GFR calculation based on the MDRDstudy equation, which assumes a steadystate for creatinine. Est. GFR should notbe used for medication dosing. ID Date Data Source [id number] 02/07/2021 11:46:[address] [facility] Name Value Range Interpretation Code Description Data Giovana e(s) Supporting Document(s) Discharge Summary [facility] XTJSZm2cSfUQZpSu84/IQTqgKUNjo2AgEUrfHEm6DNkqTWZuB8PuOZR2mE9tWLP7BEsJIaHwGiNcFkA7 [facility] [file] excel specialist/[id number]/Me6geVIcfv4lK7SRgTBxfFEY9CrC5gE+EzrsI1UIRH7KuVq [file] dGE+DQogICAgICAgICAgICAgICAgICAgICAgICAgIC AgICAgICAgICAgICAgICAgICAgICAgICAgICAgICAgICAgICAgICAgICAgICAgICAgICAgICAgICAgIC AgICAgICAgICAgICAgDQogICAgICAgICAgICAgICAgICAgICAgICAgICAgICAgICAgICAgICAgICAgIC AgICAgICAgICAgICAgICAgICAgICAgICAgICAgICAg ICAgICAgICAgICAgICAgICAgICAgICAgDQogICAgICAgICAgICAgICAgICAgICAgICAgICAgICAgICAg ICAgICAgICAgICAgICAgICAgICAgICAgICAgICAgICAgICAgICAgICAgICAgICAgICAgICAgICAgICAg ICAgICAgDQogICAgICAgICAgICAgICAgICAgICAgIC AgICAgICAgICAgICAgICAgICAgICAgICAgICAgICAgICAgICAgICAgICAgICAgICAgICAgICAgICAgIC AgICAgICAgICAgICAgICAgDQogICAgICAgICAgICAgICAgICAgICAgICAgICAgICAgICAgICAgICAgIC AgICAgICAgICAgICAgICAgICAgICAgICAgICAgICAg ICAgICAgICAgICAgICAgICAgICAgICAgICAgDQogICAgICAgICAgICAgICAgICAgICAgICAgICAgICAg ICAgICAgICAgICAgICAgICAgICAgICAgICAgICAgICAgICAgICAgICAgICAgICAgICAgICAgICAgICAg ICAgICAgICAgDQogICAgICAgICAgICAgICAgICAgIC AgICAgICAgICAgICAgICAgICAgICAgICAgICAgICAgICAgICAgICAgICAgICAgICAgICAgICAgICAgIC AgICAgICAgICAgICAgICAgICAgDQogICAgICAgICAgICAgICAgICAgICAgICAgICAgICAgICAgICAgIC AgICAgICAgICAgICAgICAgICAgICAgICAgICAgICAg ICAgICAgICAgICAgICAgICAgICAgICAgICAgICAgDQogICAgICAgICAgICAgICAgICAgICAgICAgICAg ICAgICAgICAgICAgICAgICAgICAgICAgICAgICAgICAgICAgICAgICAgICAgICAgICAgICAgICAgICAg ICAgICAgICAgICAgDQogICAgICAgICAgICAgICAgIC AgICAgICAgICAgICAgICAgICAgICAgICAgICAgICAgICAgICAgICAgICAgICAgICAgICAgICAgICAgIC NySKGfINVaPEJdNXMuTZBkWXKmLYEcJPb2E3wlYEGfSYWuGH4qHSi8Ej8+MSgSAtFkMZF0kgBrvM5WKB 8eh8NnRIzoOYNwh3UtALl7OB4NUAHdCWvfME5XIGhs dd1NPFFmYNKdcVSVt5ptEsFdUEY0AXYnGkxtIN6CCXKmM6tvkgMoDBKrYZNKBMlnKLWACBnqCXLLWPQz XDZoQbAyAyDpJWVoQC9OTECeS862yoVjFW1LTj6BJdClJH7inq8UIeZjZZDwPmfTRkt6SJxbJX6MaIKa pVVgAOAiKEPLKkIoB8sji0FlYuGiMVCONIshCQ3Ej3 VudCAxDQo+Vn7YVL7wd3RsTZwmWMJcKV2lcc8RAZuBLnDlG3FaeOovZVQkc7FnNCCvQCTFiP9nWOT7YY U6XBX8OVZlRK1yPYOILNgqxyGyiA9uJPjuCTYaSNDaIu6qIw7uWZZsHRZ2OtOuUBOOHK9JKCXvVVObxQ LfMKIbZCUHIP0SQJohIFR4TXZccbOfdXToPPbaIL6K YXJlbnQgMzMgMCBSDQo+Hr5TQD8nz9EuINbsEUFhNH8jgy0IRWhCQjQvW8G6hFTeO0F9ZYddHw1VSWFl VDVtZxGoNDTEBVxmNN5XYU5jesK3KU7PaFCbTRSvTUEtqOUuIZu3G54dcIGeMOubCO9UBCZ+Janeen+Pg0K UFEwQCByTOMsNrFeAJLIYoDgC5LgH2ATc6SzD0FrYD 21yGpcpaCeJOndPV6KRP2oJQJcTIIPPC7SeDJqeV2fgxWzOyMhCFBIAhUuR86ybUJsFCTcXCSqYJSqCi 2GTPCsV2WazbPmvUmfbeDdHDOcKEDAIA4YFZwtafFaaUUnqFjtNS32rAhyGT5NZn8GWcCpZH0kje8GcZ KbCf0TUELrOx5UGEQiKZGaEIPyHDR7HLLxZwSeNKua GQNcTVZzWDS0MHOvNWXhXJ1EVvJpSOSmTpCeCtFyYKFnBNSfor5TPYFgXELqDRHtQXEfGXWkKNHuZIig LISzLJBiKJQ8QCFzVGOyLT8INiDlEZCxMOGmEmgdMGWsCVTsnw0BTROrMDCeZbD1HxIaGVItNSSwKVlk YKWrOJY7IRAiPQEsQMIjCU7QLkOeSOIyMBUdIAjvZM DtNVGcvj3LQCEkSQGqCKWfHcDcHAXaDVQkZLlyPPMkNOK7UpC2IJJyGGWjTX4ADkPaBWHcDJN7ShvqKK RsZPDzcg5KRRTnHOLtQKU1RNNsXRGtEKLeLGemPGAtETAaYDo0SRDzCWPcFU3FOnKhPAZeWBHgRBLhNK VrVJLwck4FLKRmVKCyUfY2QKQqHQDdLVSyWPgkBIDd LZRrQgB8HCTaVNDnPX9AFvDnATFuUBO4AACiJEEmIYTlex4FJXBlCQKyUVF5PTGqQRBeUSFfPIkiCCTn SUQ3MmOhVTJxMRDtHO2LIaQeNASrPDG9AVmyTKNzKBJidy0UVQRjOFGiBFo2GAPvTLKvXZTwFJxgQBKw ECR7MIYtUFRkJWWeIQ4ZMkQyZAJkTAKiCktdLSPaOC Sune8SEHQnZJOzNaQ3LVNuHUTsTJNmZLlyFNSxRUO3Eoq5KFGoZTYmUV2DKhOdOVKaOJd5DyriWSRaDO Wcwd3UMGHqNEBxVsRtQYKnTDBtPEZsUIdjVEQeIMXyHqIzDOIzEYHxBC2FVwEvFEAdEpD2YqSiFQPrRQ Qtia1JKMJdIFFjIxZvMCLaQQBzSWFnYBhjDXFkWMJe VhTxZQRtCRPoIX7EIrMbEEXwNhS3NLHiIVBpGUZiam3UOOOpCPPpINZ6DTYzCWNdIFUiFPmhWXJvQUS5 HxZ3MXQrEHWaDG5DPxCyJOKvUoI7GtyuWKJrIEYscb4ReHJjaUrpei7TDEnPCf4CoJwcEGA2HWkcUa4r vDCgZDGpFLDDPi6PdyKqATRqPREHYWolKGKcJVCeOT BpRKQ2WqKdX6JzGHRsNVRkJxBoRZGcQ7QyMLOgDdE0D1ZtBPU3GRG7JXKmNfRtKKVgFjS5PeEvXRCvZU E4ZGU+TA2pWVg+Sm8Zm0HqxeA2vpVmFLppTVngHp9QNIJYN8QZXv== ID Date Data Source [id number] 02/05/2021 09:40:00 PM EDT [facility] Name Value Range Interpretation Code Description Data Giovana rce(s) Supporting Document(s) SARS-CoV-2 RNA 2019 nCoV Real-Time RT-PCR: NOT DETECTED [facility] This lab was ordered by [facility] and reported by [facility]. ID Date Data Source [id number] 02/06/2021 12:15:[address] [facility] Service Cmnt XXX-Imp : NoneRespiratory P CR Panel : PCR ResultsMicroorganism XXX Cult : See Labs Tab for 2019 nCoV RT-PCR resultsHAdV DNA QI ADONAY+non-probe : Not DetectedHCoV [id number] Nph QI ADONAY+non-probe : Not DetectedHCoV [id number] Nph QI ADONAY+non-probe : Not [id number] RNA Nph QI ADONAY+non-probe : Not [id number] RNA Upper resp QI ADONAY+probe : Not [...] DNA Nph Q ADONAY+non-probe : Not DetectedB [id number] DNA Nph ADONAY+non-probe : Not Detected Name Value Range Interpretation Code Description Data Giovana rce(s) Supporting Document(s) ID Date Data Source [id number] 02/06/2021 12:14:[address] [facility] Name Value Range Interpretation Code Description Data Giovana rce(s) Supporting Document(s) Specimen source [Identifier] of Unspecified specimen [facility] SARS-CoV-2 RNA 2019 nCoV Real-Time RT-PCR: NOT DETECTED [facility] Assay Performed 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 ID Date Data Source [id number] 02/05/2021 05:45:[address] [facility] Name Value Range Interpretation Code Description Data Giovana rce(s) Supporting Document(s) Leukocytes [#/volume] in Blood by Automated count 9.5 10*3/uL 4-10 [facility] Erythrocytes [#/volume] in Blood by Automated count 4.65 10*6/uL 4.6- 6.1 [facility] Hemoglobin [Mass/volume] in Blood 13.5 g/dL 13.5-18 [facility] Hematocrit [Volume Fraction] of Blood by Automated count 40.4 % 4 1-53 L [facility] Erythrocyte mean corpuscular volume [Entitic volume] by Auto mated count 86.8 fL 80-96 [facility] Erythrocyte mean corpuscular hemoglobin [Entitic mass] by Automated count 29.0 pg 27-33 [facility] Erythrocyte mean corpuscular hemoglobin concentration [Mass/volume] by Automated count 33.4 g/dL 32.0-[facility] Erythrocyte distribution width [Ratio] by Automated count 15.2 % 11.5-14.5 H [facility] Platelets [#/volume] in Blood by Automated count 244 10*3/uL 150-400 [facility] ID Date Data Source [id number] 02/05/2021 06:02:55 AM EDT [facility] Name Value Range Interpretation Code Description Data Giovana rce(s) Supporting Document(s) Bicarbonate [Moles/volume] in Serum 25 mmol/L 22-29 [facility] Chloride [Moles/volume] in Serum or Plasma 103 mmol/L 98-107 [facility] Creatinine [Mass/volume] in Serum or Plasma 0.66 mg/dL 0.70-1.20 L [facility] Glucose [Mass/volume] in Serum or Plasma 114 mg/dL 70-140 [facility] Potassium [Moles/volume] in Serum or Plasma 3.7 mmol/L 3.4-5.1 [facility] Sodium [Moles/volume] in Serum or Plasma 138 mmol/L 136-145 [facility] Urea nitrogen [Mass/volume] in Serum or Plasma 13 mg/dL 6-20 [facility] Anion gap 3 in Serum or Plasma 10 mmol/L 8-15 [facility] Osmolality of Serum or Plasma by calculation 287 mosm/kg 275-300 [facility] Creatinine/Urea nitrogen [Mass Ratio] in Serum or Plasma 20 [facility] Calcium [Mass/volume] in Serum or Plasma 9.0 mg/dL 8.6-10.0 [facility] Glomerular filtration rate/1.73 sq M pre dicted among non-blacks [Volume Rate/Area] in Serum or Plasma by Creatinine-based formula (MDRD) >6 0 [facility] Glomerular filtration rate/1.73 sq M pre dicted among blacks [Volume Rate/Area] in Serum or Plasma by Creatinine-based formula (MDRD) >60 [facility] ID Date Data Source [id number] 02/02/2021 01:13:[address] [facility] Name Value Range Interpretation Code Description Data Giovana rce(s) Supporting Document(s) Progress Note [facility] RYZIPe9lRdSOPzPw54/CMRwdXVPgu8FzQDjyRUz2YVuoFWZnK4PkQFS0oJ4dAYR3DXxRKfRpVgPcZpR1 lbm [file] X6RpT7UYXaCRAzWNd9PKY4KxQ+AM8bGYk+Lz3Bt1MrtjF7shEnUFu8FnM5SVhzWWWXRn0I ID Date Data Source [id number] 02/02/2021 10:47:[address] [facility] Name Value Range Interpretation Code Description Data Giovana rce(s) Supporting Document(s) Progress Note [facility] JTOAHz5eDfRVWxDi30/OIXxxEDGvi2XgLJsiZSy4USvxTMClT6MdPDN9lA0fFDJ7GFcCLtViMxHsFlQ1 lbm [file] QySq0SSTV6BQNODmVdSV5GIVu= ID Date Data Source [id number] 02/02/2021 10:26:[address] [facility] Name Value Range Interpretation Code Description Data Giovana rce(s) Supporting Document(s) Progress Note [facility] FROLSj6gDwAKDqBg20/DLXdbYCPoe4FyFXvxEEi3WVdgDVDmL8TlUMC5xN2qIZD1BIhHSkFyFkXbXxV7 lbm [file] v9DgjiJ9zyErBYsfNOS0MR7NONRLP2YEVk== ID Date Data Source [id number] 02/02/2021 08:21:[address] [facility] Name Value Range Interpretation Code Description Data Giovana rce(s) Supporting Document(s) Progress Note [facility] CGOQRe5qZqXWPgAo21/PCAslCOSes0KuGErcOSk8GEvvKNKsR0FkNQG9uS9tLDB8SMvPNeExTfDdPdP4 lbm SdUxjUHoYeKCCsYheLSvYuTSjpBiudxKXxJB4FgNI8WVMfA83gSLBjEYEmW8WpOKE4RnH+Wy1TQTGftZ LqIK5TYhgQ9G2OjkfDNq2YmC+daXMPK7UAvI+6OE2ijZqHQbiepE3swItZV3AgARa2ThuuX2rN0VrfmG gL6IA9mR1pZaW5ndek6qugqAYb//0y2kAMlCh1+m/9 S8g58rPY/sB5yWorp+tpmz/FJHjAcxInLh/I//TdPz/wY/09qgbf5x6u0ujuSKuPYsrY9z+7Qau7NKt [file] mhZLXCTbXbDE4JCYo= ID Date Data Source [id number] 02/02/2021 08:21:07 AM EDT [facility] Name Value Range Interpretation Code Description Data Giovana rce(s) Supporting Document(s) Progress Note [facility] TMOCWz2zSfANPrFo21/QSSrmQWJdx6NrYQbrFVu5ABcpZOFoX7SbJLN3qX5jCBQ3HHgQNeFjJqYiOwM9 lbm OqBqbRPyHgDFZnVwmVVzOpWSpqAmjvqWMoCK5XqQD6VYPjK00hCPZsXOIhM9DpPOX5FoT+We2CFFFliW GmZB0DMdoB5W3pB6vSNt+/gciOk3RJV0WpLVowe8b4XMQjKywP3bwh0xFzMw3Wsjbhp3bnka80zuBn7e 4oc3ihYMZwqqmjStMwxf4/PSONENW//4idKHAcRyz+ L/+GIu4r2tj//77xhopqADa2PlaRHdPo7SxzU0l/pfvtA+/CHEPE+6Wzfu7ygc3ShGltgP5lSOmjlyrwq9 [file] o= ID Date Data Source [id number] 02/01/2021 05:21:[address] [facility] Name Value Range Interpretation Code Description Data Giovana rce(s) Supporting Document(s) Progress Note [facility] GNCXVh9xZrCWKqYy41/UDWceYUXvt5QxOGtaFJf9SEkaFNUkV8RlKIP2rZ8gIPL0BNcSDrDkXmZtCzZ1 lbm EyNydMChDgWYWnHypUQyMnXBfxEzqozYAwBT0MzLD9WZQtL68sOUMgNDRhL2VmLAD6KBT+Fa8GINNzrL YuWA8MGmgH6J4og0aOGz5+wP2HRQ/rUFCl5q2VYv5d1ZQyZwsg4H0S5XpfvpS8dXnQ5dK5A0+USEp+Jv XJBdeM2jkQfJ6J4d9v2Ly3T4zpkVu/+9XsxqHjOGbx b/IuxBco5fj68V7i1g49Dk2Xa6pJ3RFyRI4zIkP22iycMdD17FjtJbZGfJqkh1skPoKE6FSKLKkmKmeR H4yk3YH7qnscy/rDxGoVce3mHJtGW8QNT9t+3Ax/LXzM22MbN8aYHqxS8480fn6PfT322baKesPR2vY4 cda18dmTsSt9O58v+rEXih+ewgzVp5E5LbVeSnyskl tLu+ANZ3x9Vu7p9eQPikypEeRvQ0jzqH7pwlKtooYwt+B5v4UK60oHc+uzkoQos44neGHH52jdApaeHw Gh+XYaiSK4PH0NL9T0icRkHqlueizkpm/s3B1H2D+Kqa0m+GKzF8m7f5TuNY23LT/NniaroYNoOfRRdm 9yrC8aGzDmfLp4O+++nqiAgixLF55SG6dmWk50YcEk v2oKw/Fazal+3OQbS66sBEwLpvIGCK7jZnZW9M9FWgKPxwYXn+FXNT64SuHhiKFzxE0huPMTvvYOlfp+Tc [file] 1jGFNDRv3+VVqyeWOlmKqyQPEWJmexIbBRHgQvAN1PHWs= ID Date Data Source [id number] 02/01/2021 01:54:37 PM EDT [facility] Name Value Range Interpretation Code Description Data Giovana rce(s) Supporting Document(s) [facility] YZJRUa1tEcJXHhJq65/XFGlxTDDmj7RlWEawAWl4QTdeYMPqR5ZcRUT0iP3pPVD4XKaYZcTkXrBgYjK8 lbm [file] OeOAM5ABHnXpRvCsObXSLzMaghJw3hWWWARj1+PTausMFrgRuiGRNNYwy6DEhPKhPbML1GJTn= ID Date Data Source [id number] 01/31/2021 04:29:59 PM EDT [facility] Name Value Range Interpretation Code Description Data Giovana rce(s) Supporting Document(s) Consultation [facility] MXVLCt8wKxCLQsWv68/RAFukPHGxk9SdHVhsVSe9YDmiGIZmA4KkGZM0iR4qWEQ0ACxYEhRhKiSmUtN0 lbm [file] AgICAgICAgICAgICAgICAgICAgICAgICAgICAgICAg ICAgICAgICAgICAgICAgICAgICAgICAgICAgICAgICAgICAgICAgICAgDQogICAgICAgICAgICAgICAg ICAgICAgICAgICAgICAgICAgICAgICAgICAgICAgICAgICAgICAgICAgICAgICAgICAgICAgICAgICAg ICAgICAgICAgICAgICAgICAgICAgICAgDQogICAgIC AgICAgICAgICAgICAgICAgICAgICAgICAgICAgICAgICAgICAgICAgICAgICAgICAgICAgICAgICAgIC AgICAgICAgICAgICAgICAgICAgICAgICAgICAgICAgICAgDQogICAgICAgICAgICAgICAgICAgICAgIC AgICAgICAgICAgICAgICAgICAgICAgICAgICAgICAg ICAgICAgICAgICAgICAgICAgICAgICAgICAgICAgICAgICAgICAgICAgICAgDQogICAgICAgICAgICAg ICAgICAgICAgICAgICAgICAgICAgICAgICAgICAgICAgICAgICAgICAgICAgICAgICAgICAgICAgICAg ICAgICAgICAgICAgICAgICAgICAgICAgICAgDQogIC AgICAgICAgICAgICAgICAgICAgICAgICAgICAgICAgICAgICAgICAgICAgICAgICAgICAgICAgICAgIC AgICAgICAgICAgICAgICAgICAgICAgICAgICAgICAgICAgICAgDQogICAgICAgICAgICAgICAgICAgIC AgICAgICAgICAgICAgICAgICAgICAgICAgICAgICAg ICAgICAgICAgICAgICAgICAgICAgICAgICAgICAgICAgICAgICAgICAgICAgICAgDQogICAgICAgICAg ICAgICAgICAgICAgICAgICAgICAgICAgICAgICAgICAgICAgICAgICAgICAgICAgICAgICAgICAgICAg ICAgICAgICAgICAgICAgICAgICAgICAgICAgICAgDQ ogICAgICAgICAgICAgICAgICAgICAgICAgICAgICAgICAgICAgICAgICAgICAgICAgICAgICAgICAgIC AgICAgICAgICAgICAgICAgICAgICAgICAgICAgICAgICAgICAgICAgDQogICAgICAgICAgICAgICAgIC AgICAgICAgICAgICAgICAgICAgICAgICAgICAgICAg WZTcPQHzSBEvERBhFNBdCIUnXPExRTWrPTSiWDAjCRMaETYdAUXeHEGnUSXqQTNgGYCvVLz3W4cmYVJc VLNaSQ8hARs0Fa6+EJfMBoTaPRO9kwAmeG2TAK7ak4EgXJepPXAyu8RzEUi7EJ0TLEShIIcbZB7TYOur fz9LCUDsICLftEIUq9zlSoKcFVP6JEZxPdopCR9RTF ZdO8lfbjNfRCGgIELAGM4FJoTjD8XnnW01YPYHLc9+HSffrsSbVvmPTaF5OVEkm8RuCQf6YA1OIWSaIr mvk9OrTJEmQEKMIRjiTR9OJDZ1RRL9UDBaRs7IATPfE706geQqRA3CUe8RDbLkPO6idr0XIWWdJRSzRd tWIbp9PVujHP2UpESlEEnHl13rfKz7fgWfkYJJKMGs GI8iUSVFg4WmbwL9SEhiMWEEXIJBGWS2MYelRk5yHUIzEXB0SjI6PBSBFR7WGUCqVHZdzPHlYVYtUDJD PI4FSNdoVJS2JDMnmzNalUIrXPvkLP3UYJOofkVjIQWhYWQIAAn+Pn3NTL2dr7TwMXufHsIcLY5lvv3J LLhORlZwE8M4xWBuW5S9OPasFn8OWUEbMMUhKVVhTY JAYUcrGG9FTK3quiI2EY1ZsYMiTNMuFBEjkBQpXKg9W11lvRWlEHaxQQ7CUZJ+Janeen+Je4SUVNnRWYxJB AnWcOrFPZOBlKfS2IgJ0CJe7MrF0LqVN00iUpltfXhGTkoAV3MVH5wEIKvIYLDOU8SjHTojO8cwmPbBL BzROKUJzRfK92ntOViHGJoHHFwJTIiYl6FSZMvD4Ok ijZjhLrpluMeJSGbZQADPO4ISIzcttHkcYYbmVgqIN38yDrfLV9MYl1LTcMyIL4dha2OlOWhMs2UESSi Vl0HUBPbOLDeLRZqQPF5OVVoAbDoKHaaDAGcGRMqWNE8QIQmFMQeFX8HCkLtQQOnUEUrRJRkKQQzPSDq ar7FMZTbIRIoDsb4TVLuOLSzLEJyPBobKWIxAAMxKQ A4NYOuCCCzJR7CVyRxVMGfUTKbPgYkFANxXOHete9EOGPnILNlQoWdBYWtESRtKZIbELolKUQtMVKkQq w8OKWhYMZsIF5FUbDvUXEvDYW1PYKbNUXsQOTamf0PBYBuCEFwFcK7IDFyMYAtKJCbPIhpTFQaJFU4Fb Y0TQNcGDHbEQ6DLsNrQIDyBON3GjIbGGDnWTIdut3B QVAdQBQdGOSgQsBjAXYlEJJcMBnjDCKkXDU0LXCcBCXxSKVbPH6ZTjTeGYOcFVL7GGltLRAlKCWvpm2I PTBcUDVhThioIJTjYGLyNPGyZAdySOCjTMK9WQx2WUUpTDGpFQ5LRlJhLImbSUTROat8SYvfZ1e9VXRr Hd7DM6Bor6TmMNMaHOWJTXcaQS9dgvLmGUHnMu5MX5 kPYkqzYJIyOTJtIMZ7OgobWJQeUpYlOGGtMsK7FrJ7AEP3Ab3rOSSmFDW5KLHyMTE0StPvXeOyI8Q7Vc DgHCkfOeAuLqU4QdSgCJ2WGg1MRnQ2OZS3oYNoOc8SSgKjQc4XKARTP7PPQb== ID Date Data Source [id number] 01/31/2021 03:54:26 PM EDT [facility] Name Value Range Interpretation Code Description Data Giovana rce(s) Supporting Document(s) Progress Note [facility] IGXXIb9xWrIYVtTu62/CNXnnITSwm7GfLJvcKWp3UJlwJZMtU3XvTYT5wE3jIBY0AKnIAaJjWqSuRjM6 lbm [file] ICAgICAgICAgICAgICAgICAgICAgICAgICAgICAgICAgICAgICAgICAgICAgICAgICAgICAgICAgICAg DKHpBKEhOMQvMU3XZEAnKUQcNBDdYIIrKFQlSLEaSC AgICAgICAgICAgICAgICAgICAgICAgICAgICAgICAgICAgICAgICAgICAgICAgICAgICAgICAgICAgIC SzNUDwUXEvRVUnZGXkGAAiGURkVI4YLDAnQKXbWMNlFJVhTVXlBJAgEVFnKJHsFKVpAIDgEGYcNHJdRL AgICAgICAgICAgICAgICAgICAgICAgICAgICAgICAg UFKhKEGjGBEcLUAqGQLyJTXlEFPcCSRuIGTkGDRfBM9XHZWtWNUgGIZiGZJpSQIrWSRfLWZdAZSpLYFd ICAgICAgICAgICAgICAgICAgICAgICAgICAgICAgICAgICAgICAgICAgICAgICAgICAgICAgICAgICAg TATcOUKnHSGpBSEiHI2ACRQrFHEnQTTbTOTvJEQlOG AgICAgICAgICAgICAgICAgICAgICAgICAgICAgICAgICAgICAgICAgICAgICAgICAgICAgICAgICAgIC DcOBYdCOOkTLKfEHAbQFQiYTNmBATeKA8REOVyQPGfWPBqLPHwPRBaSFUaWJYgJVZbNUOkFCTfLLWgNH AgICAgICAgICAgICAgICAgICAgICAgICAgICAgICAg JKJjSGTcUQBoBIFbTYYgMTNvYYIiULVeIPJqTGUoAVYxVK9BATCwCMOdOPLrQGRkPWHuODScVVFoKYNv ICAgICAgICAgICAgICAgICAgICAgICAgICAgICAgICAgICAgICAgICAgICAgICAgICAgICAgICAgICAg MZYiUWFnMLRePGCdHRUlGD6OAWEeJRZcWGSuGVCmYN AgICAgICAgICAgICAgICAgICAgICAgICAgICAgICAgICAgICAgICAgICAgICAgICAgICAgICAgICAgIC AnDOXsALRmRNMeIWMpPGCqRAPuKTMrJIYwCR1LRGZqFEHtBGJxRBLrDFJvXHTdRSZfAGFiHSTeRXTrPU AgICAgICAgICAgICAgICAgICAgICAgICAgICAgICAg TSLwLKGiFYTwTBSuQTLzFMLiWULhLTHsYWFeYQPyULPqCVWxVC2YYPHnWUXfKDVcBDZuGLPhXGAdRYPx ICAgICAgICAgICAgICAgICAgICAgICAgICAgICAgICAgICAgICAgICAgICAgICAgICAgICAgICAgICAg BUYxMUWtVPLgOFCaZITtXRGzMB5BJM28fZUzo1L3WH GlBS6mgvx/Yk1BLZyrfyShwLYcPN4PKjEnPZ9xdn3PWeGnOP8lre0ZSMlLCyCrU7V8tGLzHPYjMNYYAo XtS23hTGhyKg39VXevCSRuVcCmPIo0Wb6QVsMtS8qtWZEgTcY9UBQdLkErZXydCU7Mn9BgwPZfPAk+Pg 7IMK8eb3FjBYfoFTQmNH5pwu2ILAhIYoYvW4VbicM5 PGV9QFIfWm3TVDDaSVZhtSSbJVFrEBXRVvWxB0RvvF04UISVDb9+JTuyxhViAuzJKuU7WMZto4JcXTz5 UY7PMTHwUBg9yZDiQWNmA9Arq3FxRz25APBiBpfuMXXcyQRvyQujRNR1hTCuUCMVEET4HCldSi8iCQKf LZPuBrBpUSBYXJ3DKBRuJVYqiEZxMFQnYRVCQQ7KIA bvZIS3EHFqmmVbvUJjTEkzZS9LJUAdrpKjUJTxKWEOPKs+Dx9BMB7xs9EhMLwfInXcKX3vql2KRViNPs ErY9R1oYBiD8H5QJxkVy1MFHBxAQHnTATzOQXPTUehPL2TLQ7fjnU1MB9GcXJlYLJfHQAtuXWvLAv6P2 5rxDSpSFeuGF0HKLI+Janeen+Ui1KLVVvZYTaFNVmBcRd QRLIVnXqI1ZxL2GRz5TdW8RmPA97aUywkvTzUVbsIK5HLR3tHHBwJTJXIL3UrAXvdV9kcdPjGYFgVVKT YfTmK78qtFBjSBIqEIQgIXMmXl2VGXHaR3AyqwKwbOmbybUlTRZaXADBBV1IMJienxSnhIKctRqvGQ97 aHqgIO3XQw6ZLzDrJM0ydb0FdXQgGh7UZZNtZa3MAQ FoRDQaKDOnLYZ4PQCoXyVtBNlcSGZhCNBoLKY9QIWbJITpIQ5TRnTkYPClQLL7ZcJdFGXdZXZfqu5BYY IaPSJrUbM0FwKkDYWuUIIdCMegYUKmGLDtKMB4WSAwMDKxLA3IXkKjDQWhSMV0HAJwNGMiRMXjki2XYE VqKBXaXQthTfOlCLMkBMBgKRmjWUQmOUBiLbj5BJPg RIMvXI2ETxXbFVPoHVK6TqEkOZDeLPKttn4ZESAwADImKcO3UnQiMQAdEUCuBTdfRBMcXTB1YYIvIUGd ERAsGC0KKvZfQOEqYAPmZORnKGHpGDIoox7HCVRxDLMgSPM3SQNuPMHfJVRaRHguPDGrENQ0HVOnLRCv GSNlYO3FPoQoWQByALZkJPWhXFCsZZKhdl4JSXRbMZ QkCrVoMyUbBVJvYXRlGLauZQGwQPY6AJDxYFJsJLBoGC1ROlZwVNcnYTSBPvz8ARzqO5l9GULiNf4HF7 Hrc3TuZYXjPHATLWrwUC1djyPuBYNjPw0QJ0gAAvihYENlZoD8JYJ1GxrzOQRuFGXhJZIyLUGiJ3RqXQ caWT6dUXL0MiR3UVsjZmFfRaBoXhVeQPM9AJKkLcAz S3WyPpE6MePhIY2TBq3XJnH5WPL5cGNwXe5BNtklKU1ZKQWUY4SRXm== ID Date Data Source [id number] 01/31/2021 02:11:55 PM EDT [facility] Name Value Range Interpretation Code Description Data Giovana rce(s) Supporting Document(s) Progress Note [facility] OZRHEs8hMwJTMmEv58/VLVopFKAkx6LtRXplJFb8AZsfOVWjX8DeYBM9kR4xLWF4EKxAEoOmIqTmZrZ4 lbm [file] E1B1X9NMBiPPj8VnBqIFf+BM9nZKh+Yq1Rg8BzfxP2gzQpBHaiTZjgQX4ZNSLYB9CCGl== ID Date Data Source [id number] 01/31/2021 01:52:52 PM EDT [facility] Name Value Range Interpretation Code Description Data Giovana rce(s) Supporting Document(s) Operative Note [facility] QBQXOb4jAtWQJzAi08/MSUsyPEZdp7RrMFnuLYj9VOdzBLNwL6PiUMR4yN1hMNZ2NYlOJxWnZcNvTsH7 lbm [file] ICAgICAgICAgICAgICAgICAgICAgICAgICAgICAgIC AgICAgICAgICAgICAgICAgICAgICAgICAgICAgICAgICAgICAgICAgDQogICAgICAgICAgICAgICAgIC AgICAgICAgICAgICAgICAgICAgICAgICAgICAgICAgICAgICAgICAgICAgICAgICAgICAgICAgICAgIC AgICAgICAgICAgICAgICAgICAgICAgDQogICAgICAg ICAgICAgICAgICAgICAgICAgICAgICAgICAgICAgICAgICAgICAgICAgICAgICAgICAgICAgICAgICAg ICAgICAgICAgICAgICAgICAgICAgICAgICAgICAgICAgDQogICAgICAgICAgICAgICAgICAgICAgICAg ICAgICAgICAgICAgICAgICAgICAgICAgICAgICAgIC AgICAgICAgICAgICAgICAgICAgICAgICAgICAgICAgICAgICAgICAgICAgDQogICAgICAgICAgICAgIC AgICAgICAgICAgICAgICAgICAgICAgICAgICAgICAgICAgICAgICAgICAgICAgICAgICAgICAgICAgIC AgICAgICAgICAgICAgICAgICAgICAgICAgDQogICAg ICAgICAgICAgICAgICAgICAgICAgICAgICAgICAgICAgICAgICAgICAgICAgICAgICAgICAgICAgICAg ICAgICAgICAgICAgICAgICAgICAgICAgICAgICAgICAgICAgDQogICAgICAgICAgICAgICAgICAgICAg ICAgICAgICAgICAgICAgICAgICAgICAgICAgICAgIC AgICAgICAgICAgICAgICAgICAgICAgICAgICAgICAgICAgICAgICAgICAgICAgDQogICAgICAgICAgIC AgICAgICAgICAgICAgICAgICAgICAgICAgICAgICAgICAgICAgICAgICAgICAgICAgICAgICAgICAgIC AgICAgICAgICAgICAgICAgICAgICAgICAgICAgDQog ICAgICAgICAgICAgICAgICAgICAgICAgICAgICAgICAgICAgICAgICAgICAgICAgICAgICAgICAgICAg ICAgICAgICAgICAgICAgICAgICAgICAgICAgICAgICAgICAgICAgDQogICAgICAgICAgICAgICAgICAg ICAgICAgICAgICAgICAgICAgICAgICAgICAgICAgIC KvRBMzRDOvDTPhZONzQYAxACChSINrGRLnWVSxJDStNINjRDJzSUCfPZHbISTxIJOkPDa8N4yyNSXuML EsUA1pDRh5Pr9+MLiRPgDpNTH7hjAygG7DNP1js8YfACjsFRFoc8KjMCq7CT6RBSCyGViaMR5DIPnorr 7STZIfQCOlwIXXj1zfJuCdHID0PBIrKgnkOC6BDFSd Q3adlpUaRGBiCEDGJWwqKCIQGKzoVWZBYM5WLuCrK9BxmM52KZQIOy2+LYmsclBiPuaSUbQnAIHwo5Yj TCa9HN9DBBQoCvsit4QhKmLxCUCYTNbdDM4QWNF8GCSqWWUhRu9CLQIlS554jsUhBA8FLp0DOsFwXE2u xq0RGbAvBKRpWjrJKzk6RUzcOA7FeYUlORmFuBKlMJ MwenXyOx05BEYyoQOUJ714eVPADYAkziCfrIjwpfL5cakyOF7OSWI2REkxNt9rGSCyZTL8MaX8AYJYYJ 5NYEJzUEZjnZJrHQUaPMCAJZ6MXXspIZD4GTDyaoPvfIGtZRulSZ9BWIAbxuFrWsKjRGIABUa+Pg0KZW 5di5AiCOvjAkFcLA1ozb3TPAwCBjHjM3N3oCHoI6N4 YSpoWu5HKENtWVRiQKwgRQXENLlbWT3WIP6pxmE3PZ8XlNCfWHTnVILntSFkFWn1R56pvUVoBSwcFI9Y ICA+Janeen+Cv7HGKMvVQZrBRJxPiWbDYVZIrDhR9MwP1MUf3GbE6VtRA63uZzwjyLtXVwySV0FBF1gJPJm DLNBBN3PwDNmeU6ynwGtSLWrLJBLSfGsP71znMLyFD SbARMwXELvBb2MTCYlN3JhmpEoaLleqoGtMZOxCBETFZ8IKHnorgCcfOLlaOczJI12rOlbIT7FQp5JRl FuAG8alb3YbKVfSz6JNKFjOR7JOMNiWWFkPKAkZKB1BMCdGaRrWJmdKLPdAERrACP2BWDwIQHmXA7ZSl EgFYTnLED2JLthCMBhKFCbhm5VVTJxDPOnOXS1NKIg VKQxHMYoRGowBNNdPXXvGSH9AMWjNYHsFP0YFpWdPQMjLERyDLyrDORrGFUaap9RMCYrPCPrHbZ9FrUf IREhVEKjSJldNOWbVYQ8HEN6KWXyKCErXM2HTwGqWHXtPXZ3KDYmNYNzUSOuoy7UYDTwXBXzEEI4PTXv XERwSPCcARegRMAxPTX3PHtfJEAcSZUyDS3TAtWfZT AjLCO7CGOmMMHfUNViak4EXHMgMJJlXFJ3XUCnMABmLCVuGYvrSAHgKVAbTkFkGLVwQCVyTC1RHrWlSN WfLTEuFCJqKVIiJMHbrg1ATCQpDQLxArP2JEIcYEJmWXReIEuuQSTfRTAtPAawBABiMOYqQJ7UPnWuWQ QfIFC8OEYeHWTrYAYjzb8BQSVfBGUcIhz0GUVjANBo JMXyHNimOLJbNIJjAWL5MJGuYPEiLA7NUhFjAXAwTEIbGCodLTCsEJNxro6VMQOwMBVyFWahVXQaGSYs BSBsDKekDJWaWCS9SAq1NEVfHJQnCP8XJzMyOSVmAXLdApCfKFNtOHCohi1JbJHciQizww3VTUzNDd0H yAstCXB1MClmEy1nfUQrQxZnOHMGCi2HppVrMPGgPB CPGIyuCHCnHAQrOjJ3FjU5LvdqViJ7IyNoKJE6BFX1B9H4L8H6GIygHyT7QqVxLlNeDKGpXUBgGGYnDf SbJEh9NFFyBlhtXhh2MKP+HM3rWRx+Fz8Im7SkgqB9otBwGNhcEvE2SE7IOKCXN0HXHm== ID Date Data Source [id number] 01/31/2021 09:51:[address] [facility] Name Value Range Interpretation Code Description Data Giovana rce(s) Supporting Document(s) Progress Note [facility] IBHREz2hCdRYZqTx07/ZCPhcMVTew9BrCSgjYOo1IYfaRSUzO6KpJGC6nZ6iUNY1DGxCAsEuEePxRdD4 lbm [file] HPIGNdPpELocMNpsYTPGLn7I ID Date Data Source [id number] 01/31/2021 08:23:[address] [facility] Name Value Range Interpretation Code Description Data Giovana rce(s) Supporting Document(s) Progress Note [facility] OGCSLq2dQdATNrPe30/TKUdbZNMff3ZtLVdySPy6HDraCRMuN4DeWLM9cD1eMNC3WHrGQqIxYiTaElT5 lbm [file] AgICAgICAgICAgICAgICAgICAgICAgICAgICAgICAg ICAgICAgICAgICAgICAgICAgICAgICAgICAgICAgICAgICANCiAgICAgICAgICAgICAgICAgICAgICAg ICAgICAgICAgICAgICAgICAgICAgICAgICAgICAgICAgICAgICAgICAgICAgICAgICAgICAgICAgICAg ICAgICAgICAgICAgICAgICANCiAgICAgICAgICAgIC AgICAgICAgICAgICAgICAgICAgICAgICAgICAgICAgICAgICAgICAgICAgICAgICAgICAgICAgICAgIC AgICAgICAgICAgICAgICAgICAgICAgICAgICANCiAgICAgICAgICAgICAgICAgICAgICAgICAgICAgIC AgICAgICAgICAgICAgICAgICAgICAgICAgICAgICAg ICAgICAgICAgICAgICAgICAgICAgICAgICAgICAgICAgICAgICANCiAgICAgICAgICAgICAgICAgICAg ICAgICAgICAgICAgICAgICAgICAgICAgICAgICAgICAgICAgICAgICAgICAgICAgICAgICAgICAgICAg ICAgICAgICAgICAgICAgICAgICANCiAgICAgICAgIC AgICAgICAgICAgICAgICAgICAgICAgICAgICAgICAgICAgICAgICAgICAgICAgICAgICAgICAgICAgIC AgICAgICAgICAgICAgICAgICAgICAgICAgICAgICANCiAgICAgICAgICAgICAgICAgICAgICAgICAgIC AgICAgICAgICAgICAgICAgICAgICAgICAgICAgICAg ICAgICAgICAgICAgICAgICAgICAgICAgICAgICAgICAgICAgICAgICANCiAgICAgICAgICAgICAgICAg ICAgICAgICAgICAgICAgICAgICAgICAgICAgICAgICAgICAgICAgICAgICAgICAgICAgICAgICAgICAg ICAgICAgICAgICAgICAgICAgICAgICANCiAgICAgIC AgICAgICAgICAgICAgICAgICAgICAgICAgICAgICAgICAgICAgICAgICAgICAgICAgICAgICAgICAgIC AgICAgICAgICAgICAgICAgICAgICAgICAgICAgICAgICANCiAgICAgICAgICAgICAgICAgICAgICAgIC AgICAgICAgICAgICAgICAgICAgICAgICAgICAgICAg ICAgICAgICAgICAgICAgICAgICAgICAgICAgICAgICAgICAgICAgICAgICANCjw/wRRoP5jowZJgwcH3 V6kkGk3LKx9XOA4zn9WsGQSkUVrjkzBuLzfTJmGwRGCnTdyXSkg2VBzbJP0ToGVmY5WcZ8NwZZdoZN9G NIZxXSFtiXVzLVYpFRKbRdK4DNBiSCcpZQ9VuKBtWY vfMJGkEXBbFD8HONOxI447ufKhSW3JIx8IStViQT9ubm3YGDpxBDZwRcpFKuf1IZosSZ7RxSYqmFXgBB TeHYODGyEkW4bgl2EoBDlfHHJZYKtdGR4Po8GxyXTrPLs+At1ZZX6dh6QaBSymGLYrDH8yab5TTCbLDt PxU5LsxPqaTOWup9udDATnFG6trHCrJFS0WSKwiW39 DHIbiwLoWU5vPJQWBUI6PGsaDn2vGBYbKLM8EkE6DVVBUH2VAMZzYFEhyRCaFBBmLGOGHX9REJkeEZW1 WEDrjuRxtXGyNUbfTK1VLIOinhNwEUymVTEXLFl+Og6YLZ9je2WcBTygVLAqKQ3bsx5HLFmIBkZlP7U0 hKKvS0W5SSqsOf3FRWUiEYAcQMSjSTNXHNoqQW9OYR 2qplN5RN6PqVMuLSLiENJosVUpTJj9X35ziUKuQSsmSY3KVGZ+Janeen+Wo1PQCJnRUBvJIAlDpPxMGQEVs OzE5GlN1JFx3ZoC0VwAG78wGtpmxOvTFtwJI4CLN8pVPJmOTNNBU6NqFErqU6uwhZcTlTcVVBKJoMeX1 4tnYWoWZOuHRD0YJMgYj4WCIOjB9EeinIveXutdpZj LBKkAQDJFE2MAZxxrwZiuZYwrOprZI20cMifTN3WPi7AZdLgRS7xba9FxMZzJn5BNJJtQO3LXSFdMRHp VSTwISS2YXMkBtDrRJdtQXXyCQAxTCG3SOBgPJUnWU2MPtZvEPEvMTE6WlUpIRMwELTcmd4KEKPbLTPj BmH2UlBvJDIhMTFmUAdiIILeGWTkUUP7XOOxMHDkVE 9FVxHoHPXfCZE8QrOgYLZlTWAmyb9SVPDpAJPgKEz0YWIgSBRlIGGeDXxiVACoAIRtTPP1KDZqTEUoQQ 1UMoGvCGZuGVYtPzEaPFFuRBXtes1OUDAjKKQiVqXpULAmZEJySFXrIIjzZYUhFLH4WJsxSJRzARLiFZ 3XExNjTELyKFDsUkKmXDAbNAYvay7QTWQhFYWqMRJ5 AHThKKGgKFYzTTriTJLlIVV3QTDmYOMoPITaZF3HNgUcJJMgTFW8QGkiPECeXNCgln7LIUGwEMPfPJvx YGEaVWBqRGFnBIzjARYlFHI2HrHgRTTsAFXnAH4ROmXxPDEoQTc5KdPzXDEdGHGrce1GORMxIDJwFpyw FuOlOTAlJFOrQWcpBRMpDON2PJo5HHKwBGMhVJ4HYf LpYPyvRNLZHyo4KKwlQ4c3FAGbWJ4TM1Hvt5TpHUcmYWLNQTuqJP7gvtTfFZHvHg8YP8yKOsxmJLP5OM E4Tem5UXSvUgzsP7IhX4GmGsYcHQM6UUG1Eu8jNJCtQTL1KXMqWCKoCGOmWVBpBBA8Q3R1OACnAvStUB wwYtPoWH3JAs9SVsY7KXV3nYIuKa1DYBPcEm9JJGNVZ4WYYx== ID Date Data Source [id number] 01/31/2021 06:10:[address] [facility] Name Value Range Interpretation Code Description Data Giovana rce(s) Supporting Document(s) Progress Note [facility] URXVMm5nJiIHMlFv78/SFRtpPAKwp0JhSRifTRb1QUkmWHUpC1BcJGN4kX4fNVO1UPaGGmHsIuIrTqR2 lbm [file] AgICAgICAgICAgICAgICAgICAgICAgICAgICAgICAgICAgICAgICAgICAgICAgICAgDQogICAgICAgIC AgICAgICAgICAgICAgICAgICAgICAgICAgICAgICAg ICAgICAgICAgICAgICAgICAgICAgICAgICAgICAgICAgICAgICAgICAgICAgICAgICAgICAgICAgICAg DQogICAgICAgICAgICAgICAgICAgICAgICAgICAgICAgICAgICAgICAgICAgICAgICAgICAgICAgICAg ICAgICAgICAgICAgICAgICAgICAgICAgICAgICAgIC AgICAgICAgICAgDQogICAgICAgICAgICAgICAgICAgICAgICAgICAgICAgICAgICAgICAgICAgICAgIC AgICAgICAgICAgICAgICAgICAgICAgICAgICAgICAgICAgICAgICAgICAgICAgICAgICAgDQogICAgIC AgICAgICAgICAgICAgICAgICAgICAgICAgICAgICAg ICAgICAgICAgICAgICAgICAgICAgICAgICAgICAgICAgICAgICAgICAgICAgICAgICAgICAgICAgICAg ICAgDQogICAgICAgICAgICAgICAgICAgICAgICAgICAgICAgICAgICAgICAgICAgICAgICAgICAgICAg ICAgICAgICAgICAgICAgICAgICAgICAgICAgICAgIC AgICAgICAgICAgICAgDQogICAgICAgICAgICAgICAgICAgICAgICAgICAgICAgICAgICAgICAgICAgIC AgICAgICAgICAgICAgICAgICAgICAgICAgICAgICAgICAgICAgICAgICAgICAgICAgICAgICAgDQogIC AgICAgICAgICAgICAgICAgICAgICAgICAgICAgICAg ICAgICAgICAgICAgICAgICAgICAgICAgICAgICAgICAgICAgICAgICAgICAgICAgICAgICAgICAgICAg ICAgICAgDQogICAgICAgICAgICAgICAgICAgICAgICAgICAgICAgICAgICAgICAgICAgICAgICAgICAg ICAgICAgICAgICAgICAgICAgICAgICAgICAgICAgIC AgICAgICAgICAgICAgICAgDQogICAgICAgICAgICAgICAgICAgICAgICAgICAgICAgICAgICAgICAgIC AgICAgICAgICAgICAgICAgICAgICAgICAgICAgICAgICAgICAgICAgICAgICAgICAgICAgICAgICAgDQ f9X3yvMYKxPCUxGG5aATc2Yy8+UOaPTeEvVAD3ebOx jU1HHD6tz9DkXHkdKZCgp4NyTMd9SB7XSLRbKZunTW8NBDvdny7UZNTfASDtvVHNl4rkXzWpENR8VSDq YfcfFV3DCBRhJ0srmsWwKLEgEWOBYI7CAcCtV8RigL03XSGQUl9+OXfqmhEfEnkRKmI6LDUmr0RdUYi7 LQ4WJIMnYvofi9FvIHGfTESHUKtsQS8REJI6LPC4GX FdQf7RJYZfJ851jyXiJO8QJf4EMhZtBY0mea3YAWQfVXVjRdmDHkc1ZXzoEK8EoWSlZYpLyv7ujpRbdq HZm4MkduIydNXKF550eEIFBZXdupIhyPwggyE2kiykAR2SUVE5RDdwVh7qBYNsNXM2AjD2NVTRBR7RPH FfLXNtcCNfKIUgTOASFQ8HBJcvMXU6RTKtnsMhpGPi OUacYY0IQCYllzScUMNkPPYISRg+Qx8SZH5er9RyLStnQbBbQE8rqm8OLPcAQfQtF1S6gSCqS9K2KVna Sb1LUXNzXJUjTFMkDJQRLSojBL8KVM5zshU9WB9TiAWlFVCtCVKlgADzFBs2J91acAFhVSbaIW4OPHJ+ Janeen+Uu2NGMWnTEKmFZSkOwNuEMHCSwRcG7GwT3MLv8 IhQ0GrWD00cHfnwvPlUTbkWH8RTX5wQVJoKDUPOT3PkJOxhD0qtbBcMAIpYHKMXdOxO44reFQxYYDkII ZeQKBpFs3RXHIrA7XbksYzjJivaoEnOEEnRGUCMS1HNBlwntUsuUEwdSnwNQ36dKzcWH9FMp8OCcSxHF 9bnd3PuSTwIc2SLKAmHy9TPADhQOSfIJEwITA4GYYg OjArXAasMSNsUBTsTCV6UDXeTOIbQZ6PZcBbELDtVZQ8FPgbHOXwINEdoe3RLPDwLNZxPjZ3DjLmIKSt WPHzJEdqGTKcJVZmOOH4OBKiKXTiVD6MHaDbHKLtJGFcKOanXFXwONSwqn2YFCVwGBWkBjV2QMCpWAWd NSAnQIgzLEHpOOYvOiVwYGWaABSyNV3TScSuNFAzWK X6PEKjNXYyRNVpri0PZJFhHIInNnS4LgOpKAVwMAHrQBjgBGPzOLV3ATT9SHRhLHYxWZ3WYxFeSXKpRR S3XBRgTAQpBSGknk5NJLMwNAWcJJycBiCkUCNpBQXfYGxyKUMxODW3CuB9VLVpIDNyHM7RItAvRIYlLS Q6PsIfUIAqLGRbhj9PIXQdNFCnNws4QxUiWWLlOPCl JSjmDMEbCPH2QPYeWAIvGVQwZW5KBhPqOLttAYKAEgc2XYquO2d3DHOfDe0RB1Wxz6EyWMOyXANVNBkh ZT0tzuVpDNDzRk6TK9oUFsmzYqLpSyOdHJElXBd9McGkDPOfN8B8OOU4IbS5YHY9MX5lCDQaORB1RPI7 YNC0KLDvWAA5HbRxTgYnAedaLQwaAMigZpIlFD6FNt7IKbU4PWN2qCDqIe0BTcX8CK0WWDDFT4IVRc== ID Date Data Source [id number] 01/30/2021 09:11:00 PM EDT [facility] Name Value Range Interpretation Code Description Data Giovana rce(s) Supporting Document(s) SARS-CoV-2 RNA 2019 nCoV Real-Time RT-PCR: NOT DETECTED [facility] This lab was ordered by [facility] and reported by [facility]. ID Date Data Source [id number] 01/30/2021 10:22:[address] [facility] Service Cmnt XXX-Imp : NoneRespiratory P CR Panel : PCR ResultsMicroorganism XXX Cult : See Labs Tab for 2019 nCoV RT-PCR resultsHAdV DNA QI ADONAY+non-probe : Not DetectedHCoV 229ERNA Nph QI ADONAY+non-probe : Not DetectedHCoV [id number] Nph QI ADONAY+non-probe : Not HsjboagmVYzJDK82 RNA Nph QI ADONAY+non-probe : Not SimdlykvOWgTXD85 RNA Upper resp QI ADONAY+probe : Not [...] DNA Nph Q ADONAY+non-probe : Not DetectedB shhajVK555 DNA Nph ADONAY+non-probe : Not Detected Name Value Range Interpretation Code Description Data Giovana rce(s) Supporting Document(s) ID Date Data Source [id number] 01/30/2021 10:20:[address] [facility] Name Value Range Interpretation Code Description Data Giovana rce(s) Supporting Document(s) Specimen source [Identifier] of Unspecified specimen [facility] SARS-CoV-2 RNA 2019 nCoV Real-Time RT-PCR: NOT DETECTED [facility] Assay Performed 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 ID Date Data Source [id number] 01/30/2021 05:51:29 PM EDT [facility] Value Range Interpretation Code Description Data Giovana rce(s) Supporting Document(s) Progress Note [facility] JOXRYu9fLoKIOsBd08/BXVylIHFqo2KxTAclMUk1PGzaINHkU5EpKFM8rH6zIKI1MTtXQqBfFgLaPvX1 lbm [file] 2Le3MdstH6vpQpKMphSBG2Me4CWWBNB4GSLx== ID Date Data Source [id number] 01/30/2021 04:11:15 PM EDT [facility] Name Value Range Interpretation Code Description Data Giovana rce(s) Supporting Document(s) Progress Note [facility] FHNJIq9nAaHBOyPd04/LJLfoQFRuk0BkCOctJPq8DMggQVYkD3IdRTA2iC2iTNG9SWxUOyDqUpIfGxG5 lbm [file] HwSfYaw2OsD+AZ2hWSd+Uc0Pn5ZbmjX8nxBaOLz7BpJ8DHfoYDWRCh9A ID Date Data Source [id number] 01/30/2021 01:10:[address] [facility] Name Value Range Interpretation Code Description Data Giovana e(s) Supporting Document(s) History and Physical [facility] IISSGk9dDiQXYkTd34/YFPbcOWHno6XsEYitVUm2ORrfJQWmZ9BlKQB6zM9sCVC1UClBKaCeNzOaBrF8 lbm [file] rqe+oWdPlrslnudhZDDmFQsvWyzxwlhtuQX/BCpaFP DotSnKz6VxPMYYJd5Z2pH/HUXImxASvvsQXxo5iwAf0fQ/YgaDVoCkvrIBQvtcrUHFatCGkSCehwJWqv IRtznqIBMwpbomeinZBeI2Gp6quogWdLSTnp43lTBZ5Gy4MqYa0RKgpi+AuWJlfYeChP8OFJgrrRaiTP Hr/kVuIDF64IX9nr0qRzpbNI+PHOTOVOLTAIC TECHNICIAN/vkn/lpqwdfxU3a 0YUBhucg49pu9fJaVu7GV+LALO/FptAUKZO2tnvwUwTKcBkIKGvxkjjNHxnxRZ9KsXyelpbgiCnunw789F [file] LTXjZgTQdaJJhqUTABKj0L ID Date Data Source [id number] 01/30/2021 05:52:45 AM EDT [facility] Hospital Name Value Range Interpretation Code Description Data Giovana rce(s) Supporting Document(s) Progress Note [facility] QIKLMr5bUxWXOmPz56/PYTymXSRiz4SlPSlaWQi8SVbpXIFcF9AvIPB8wN8gYBW1EJkQXlJrKoGgKwO6 lbm XlAaeIExGpXWDxDwtJUcTzRCsrWgwzlTRjET8QiNA7MCBgH47zWDQrDCMqC5KjBOMjPFh+Tv7WWTZsmU TeUI5KForR7M8klih5Jh5jfJ3gfVNJ7lOmi1w1AMmRhznw5xJkyJM6xja5JHKYyf9ov7Ex1WLp909WOL eLj2oQRjhm1v665CDvpQKu1nnLgiIa5t//Wydl4Ucj U/y/+Gec+c5jvjuzu9ipInWusj1/qVUiH/xa0pxDA/k/ldf+4IdT5/Cl6+StOafj/RH3p3UWd3+6kXM6 2ns3/QJ1Jv2mwwqf+SN3nNaknEx4krsWfmu0KOIU144qEg7bIvw3k36knt5InPt9Z4XnoQNHtBjQihJ5 O4LkI61nl4dTbIP7X/Ac0SJxri7OSois7jmRRRTk2m pTtsE3lxzHQkwjj/68bk2u5WqbanFR7kaFcy6Dxmcz8plRZ3R+JT/yKZK1s97qN6Wy4uXtKlU4wWjhxb fMU1vLnqmdVDnz/AjLKxPDdPFeaDWF6K6iHnXhvbIPI+FF3+5DIGKYtMLQ79y78FYippKL3+G+z/6wx8 b94PIggf8qNDrqhdjSFgPUeoCf710+sDeUuumaS/6h f+fnvfFia83e/nHuALQGSuP5PDzwtpHWOc91sdiZedS8H4+ER75x9YupfLUH5eVcLu9QaVwBa3UQAJBd bvuTEn7TyWmFAyvKG42C8y3yOhtd8EzPqE5TXj+vii/g24aZqRyCKekXwfgE4An6NY415qLxrVdnn19o osWInVdLqOI+HB8oN3bxUh2s1kc6n069Vg/DEON/ejxN [file] 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 Superintendent+1s/Cs80bP64+L6pAj9mxtjca9jcpXjdOhnD0gEo5sgCir8VCoVVpDM7BZoMM7H94ZwoDgQiMbwy6r [file] yMm4Kjc8jCQO0EEII4AYBR6T6MkM4GbJTJGXhT+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 qBkGeSTHo/KOTg8yH2U97oKSxCWcuReUtHU53TJCPo6PHL0wntDfIh+oc+hudyUu2ZOnRRsuGTfSlFOK 7ByBK778AeKDf6dP2OdS7Yec0IOvTmTcgcOuV/GCH+kEGjSUPdxJfxXoLUXB8Po5mJkAlF2inwVTfOE+ ksJeKWIMaLomPX0QcfZIhyEOcr+9RES+KoskUkogr3 pfsts0YLW8gox88KgHg1sFtb5Fq/ke6afM5ark/SFsRlYiK9y4Yg2o+YXjoGRjBexnIbekGpSPeovVNQ Q6l4FkhlLrNQhQvtXpZqnHEDFATZrrIe/w6cQcicdKEQSz10h3nxChI5knDIUrByIxGG8pB/u6wIW8n+ K/o0fAyaDv5Dd5jIQdVwwWCSt+svsx1VMV+cpd0GXI UD3QaBhpNkPmDCdbL5JqlJ/vLnplTpu/eXqIjCnNswLyKZOKSMQsfBBJqATvxhZESq+squunQBW0/Lacy [file] EzZUT4Chy3CgRdIrfsUG7iDGAWQk2+SEexvZEcdXrhTRVFJzM7GKLuUYxqNVWIEj4D ID Date Data Source [id number] 01/27/2021 11:22:[address] [facility] Name Value Range Interpretation Code Description Data Gioavna rce(s) Supporting Document(s) Progress Note [facility] GHIRMk4mPlNQAyQn87/LPWoxLZAcy6PpWJqyQWh7RYdnTMZqP8TeLMV7tA9bDTU9CZpNGdIhDcWvQpXn lbm [file] w8URGkKsOnRZW+HV2fUZt+Sa2Fh6TrchH6htTvLZwrIVJ1YP3VTKJNS6TAIr== ID Date Data Source [id number] 01/27/2021 11:22:00 AM EDT [facility] Name Value Range Interpretation Code Description Data Giovana rce(s) Supporting Document(s) SARS-CoV-2 RNA 2018 nCoV Real-Time RT-PCR: NOT DETECTED [facility] This lab was ordered by [facility] and reported by [facility]. ID Date Data Source [id number] 01/28/2021 07:05:[address] [facility] Name Value Range Interpretation Code Description Data Giovana rce(s) Supporting Document(s) Specimen source [Identifier] of Unspecified specimen [facility] SARS-CoV-2 RNA 2019 nCoV Real-Time RT-PCR: NOT DETECTED [facility] Assay Performed 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 ID Date Data Source [id number] 01/20/2021 09:01:00 AM EDT [facility] Name Value Range Interpretation Code Description Data Giovana rce(s) Supporting Document(s) SARS-CoV-2 RNA Resp Ql ADONAY+probe NOT DETECTED [facility] This lab was ordered by [facility] and reported by [facility]. ID Date Data Source [id number] 01/18/2021 12:14:[address] [facility] XR ANKLE 2 VIEWS [id number] RESULTInterp reted by:ALKA Lawson FOOT AND ANKLECLINICAL STATEMENT: Pain. Initial [...] rce(s) Supporting Document(s) ID Date Data Source [id number] 01/18/2021 12:14:[address] [facility] XR FOOT 3 OR MORE VIEWS [id number] RESUL TInterpreted by:ALKA Lawson FOOT AND ANKLECLINICAL STATEMENT: Pain. Initial [...] rce(s) Supporting Document(s) ID Date Data Source [id number] 01/09/2021 03:09:[address] [facility] Name Value Range Interpretation Code Description Data Giovana rce(s) Supporting Document(s) Progress Note [facility] SSHZXq0oJyKYDbSf49/KBDitTCFvy2MlMNfiRYw3BHrrNEFzT0FqTTZ2kW7pBNH3WUjIYrKqLuRgNkM4 m [file] AgICAgICAgICAgICAgICAgICAgICAgICAgICAgICAgICAgICAgICAgICAgICAgICAgICAgICAgICAgIC AgICAgICAgICAgICAgICAgICAgICAgICAgDQogICAgICAgICAgICAgICAgICAgICAgICAgICAgICAgIC AgICAgICAgICAgICAgICAgICAgICAgICAgICAgICAg ICAgICAgICAgICAgICAgICAgICAgICAgICAgICAgICAgICAgDQogICAgICAgICAgICAgICAgICAgICAg ICAgICAgICAgICAgICAgICAgICAgICAgICAgICAgICAgICAgICAgICAgICAgICAgICAgICAgICAgICAg ICAgICAgICAgICAgICAgICAgDQogICAgICAgICAgIC AgICAgICAgICAgICAgICAgICAgICAgICAgICAgICAgICAgICAgICAgICAgICAgICAgICAgICAgICAgIC AgICAgICAgICAgICAgICAgICAgICAgICAgICAgDQogICAgICAgICAgICAgICAgICAgICAgICAgICAgIC AgICAgICAgICAgICAgICAgICAgICAgICAgICAgICAg ICAgICAgICAgICAgICAgICAgICAgICAgICAgICAgICAgICAgICAgDQogICAgICAgICAgICAgICAgICAg ICAgICAgICAgICAgICAgICAgICAgICAgICAgICAgICAgICAgICAgICAgICAgICAgICAgICAgICAgICAg ICAgICAgICAgICAgICAgICAgICAgDQogICAgICAgIC AgICAgICAgICAgICAgICAgICAgICAgICAgICAgICAgICAgICAgICAgICAgICAgICAgICAgICAgICAgIC AgICAgICAgICAgICAgICAgICAgICAgICAgICAgICAgDQogICAgICAgICAgICAgICAgICAgICAgICAgIC AgICAgICAgICAgICAgICAgICAgICAgICAgICAgICAg ICAgICAgICAgICAgICAgICAgICAgICAgICAgICAgICAgICAgICAgICAgDQogICAgICAgICAgICAgICAg ICAgICAgICAgICAgICAgICAgICAgICAgICAgICAgICAgICAgICAgICAgICAgICAgICAgICAgICAgICAg ICAgICAgICAgICAgICAgICAgICAgICAgDQogICAgIC AgICAgICAgICAgICAgICAgICAgICAgICAgICAgICAgICAgICAgICAgICAgICAgICAgICAgICAgICAgIC PhORDqBVWiFSOiHITyCWYkOWVlJUHlSFZjKSYdRCPuYBLhPYt3Y6jcFGAeNYCnTT3bMOa1Ki7+DQoNCm YiZFV4goHtwQ8YSB9kg8WaUInhQWWrj6IyAJk3FW4P FGIvBTrrKE0PLDnwda5BYOYuSUYhcTZZg7ejUuPzXEV1GZGiWyvuUS9CREVqD0gjnkMhXYFwCMZZYU5H KwQhY9AvpB82XFOGFw6+SQeboqVaYaaOBvUsIBSvy3HaQGx3SR1TVTKuWbdxf7IuVxZrPZABXAbzGG8Y HWM5HUPdBADjXp1VOJKaG369uxFfVS3NPs9ISrSiBU 1fzv7TGdQxJKEuOwfVCob7ZDfiRR5XxYFrPJkFav5xbqXrilXOs2XoggRdfLOXbCUqcBKzZHBgOlzje5 BdjHtfAYWrJCVcYe9aPN8dYOPwJAPoDyAzIJDIDF2BIXSzHMIveYTbDPGlZEJIBA3WWJebVDB8MITyoz LvuIGmZOdoFI8XQCWaigMtQfTdMMMPYIz+Dl6NXV8i f8DsWKmcAGJzZD9btq5VWRlZJeVzK7I9cHOjA8O3NVymXm6SGJNeXVYwOiAlPUEEOOldFE3LKG3aqcK5 HO2RsZJkIZLfPOZunVApHEx1D54zdLZcYFfrFW1UANQ+Janeen+Kp8WJSAdBTYnPJAaQmBxVHIMUzPzR7Yo T5RTq5UbP3BcZR20lAsshtBnJYmaZS2SHK3vZCEoCM TXTS2QbWXgiM2kusDfOiBzMLLCBfEtL71gdZWdKVYyLZQrLZPfBa1KLPUtH1BctiUfyTdrwdCjVFTtNQ NMML0IFQxhjhJotCRkjLzqXY29jPoqRS8QUm0AHaNsWL9dbb6MnJByRn4KJDUgSQ3QLTArBWBtNYJlYU H8DGSiStPjLMmtOGApUHUiFEH1VWKlNFGtOQ4KDhSv JIOwNHy1ZBfdTSDlSOPzfk5TYGJiFHKrYES4TPUgFWFaSJGyDGkpSIXpNMNwUOY6YDBmOJGuWF3WYcZt QUGlWFMcZNnfSLHgRPLikv9JTELuXGNwIfR3BGDqADCzTJLuZYvtDJFuHCJqZEFfWKDqBQGwTX8LPeBd PWVgYGY0PSOjYMDsJZQitx8SWGFdQKFsAmtmBpAyNN JqJIVcGGbwRUApCKC1ZWm7DTUeZPZeSZ2QTdLvDOMwFQGsJPDtLJVhLKSggc7MQEHmAQFsMAH2OhDqOP EqYPShVFviASBjXDX1OwV3WXAxDQRrIP1CIaClKNCdVXG1LQVgXJQcBAUlui9UNOYtPCXjEkU9ThTjLX JeRGUcGDvoJAMhSFV4ZxqyKIRwIAQlZM3XLrPdVVDj IQp3FnahBJKbCJHvux0XSUYxVALtRMF8VtIiEANeRVEaWXkfOXJcWSK8EeB9LSAaKGFsQY5EEzElJRCy SAc6HiXwLCByWKEqym8GCAFsEYEsEPT9SHEvWYTwZCViHMfvMOLxUDSfDln5KQMyZQIvPI8EAtKpQOFw QzX4NvFuRWFsSSHifr4COQVpGTKpLIblNhEpNXAoJK PmVDn5rmFcfKOaMHo9CA8PD3GxtvYfGzUPEi1Eq951JCX5IKPpAn5TG6yvMx6iJJPmZQHNWg0LURz3Mt UxNLY5OIYcWomyOCZzCUImHWS2NWBeSIjdVYf4ATI+AFxiHAMhRQQ5XLCwN2A5YGKoRaTjNnReXEBkMR OaGOmlWM7yMJHFVc6+RGxigONdcWsyEVCMIhQlCQE3UZhbGHOPUl3U ID Date Data Source [id number] 12/12/2020 03:03:00 PM EDT [facility] ([facility]) Name Value Range Interpretation Code Description Data Giovana rce(s) Supporting Document(s) White Blood Count 13.4 10 4.0-10.0 Above high normal [facility] ([facility]) Red Blood Count 5.89 10 4.30-6.10 Normal (applies to non-numeric results) [facility] ([facility]) Hemoglobin 16.9 g/dL 13.5-17.5 Normal (applies to non-numeric resul ts) [facility] ([facility]) Hematocrit 53.3 % 42.0-52.0 Above high normal [facility] ([facility]) Mean Corpuscular Hemoglobin 28.7 pg 27.0-33.0 Norm al (applies to non-numeric results) [facility] ([facility]) Mean Corpuscular Volume 90.5 fl 80.0-96.0 Normal ( applies to non-numeric results) [facility] ([facility]) Mean Corpuscular HGB Conc 31.7 g/dL 32.0-36.5 Below low normal [facility] ([facility]) Platelet Count, Automated 255 10 150-450 Normal (applies to non-numeric results) [facility]) Neutrophils % 78.0 % 36.0-66.0 Above high normal [facility] ([facility]) Red Cell Distribution Width 13.8 % 11.5-14.5 Norm al (applies to non-numeric results) [facility] ([facility]) Lymph % 13.3 % 24.0-44.0 Below low normal [facility] Eos % 1.4 % 0.0-3.0 Normal (applies to non-numeric resul ts) [facility] ([facility]) Peach % 6.6 % 2.0-8.0 Normal (applies to non-numeric resul ts) [facility] ([facility]) Baso % 0.3 % 0.0-1.0 Normal (applies to non-numeric resul ts) [facility] ([facility]) Immature Granulocyte % 0.4 % 0-3.0 Normal (applies to non-n umeric results) [facility] ([facility]) Nucleated Red Blood Cell % 0.0 % 0-0 Normal (applies to n on-numeric results) [facility] ([facility]) Lymph # 1.8 10 1.5-5.0 Normal (applies to non-numeric resul ts) [facility] ([facility]) Neutrophils # 10.5 10 1.5-8.5 Above high normal [facility] ([facility]) Peach # 0.9 10 0.0-0.8 Above high normal [facility] ([facility]) Eos # 0.2 10 0.0-0.5 Normal (applies to non-numeric resul ts) [facility] ([facility]) Baso # 0.0 10 0.0-0.2 Normal (applies to non-numeric resul ts) [facility] ([facility]) ID Date Data Source [id number] 12/12/2020 03:03:00 PM EDT [facility] ([facility]) Name Value Range Interpretation Code Description Data Giovana rce(s) Supporting Document(s) Class Description Laboratory test result Normal (applies to non-numeric results) [facility] ([facility]) <content>.</content>
<content>Levels of Specific IgE Class Description of Class</content>
<content> ----- </content>
<content>< 0.10 0 Negative</content>
<content>0.10 - 0.31 0/I Equivocal/Low</content>
<content>0.32 - 0.55 I Low</content>
<content>0.56 - 1.40 II Moderate</content>
<content>1.41 - 3.90 III High</content>
<content>3.91 - 19.00 IV Very High</content>
<content>19.01 - 100.00 V Very High</content>
<content>>100.00 Very High</content>
<content></content> W540-QhI D pteronyssinus 0.64 kU/L Abnormal (applie s to non-numeric results) [facility] ([facility], ) X882-VvP D farinae Mite 0.41 kU/L Abnormal (applies to no n-numeric results) [facility] ([facility], ) S539-HoD Dog Dander Laboratory test result Milagros l (applies to non-numeric results) [facility] ([facility], ) A140-RmC Cat Epith/Dander Laboratory test result Normal (applies to non- numeric results) [facility] ([facility]) K151-PtA Bermuda Grass 0.13 kU/L Abnormal (applies to non -numeric results) [facility] ([facility], ) C207-BdZ [place] Laboratory test result Normal (applies to non- numeric results) [facility] ([facility], ) U661-UwC Cockroach, Algerian Laboratory test result Normal (applies to non- numeric results) [facility] ([facility], ) H753-KeP Bah[place] Grass Laboratory test result Norm al (applies to non-numeric results) [facility] ([facility], ) P165-QhK Penicillium chrysogen Laboratory test result Normal (applies to non- numeric results) [facility] ([facility]) M003 IgE Aspergillus fumigatu Laboratory test result Normal (applies to non- numeric results) [facility] ([facility]) M002 IgE Cladosporium herbaru Laboratory test result Normal (applies to non- numeric results) [facility] ([facility]) W498-VvZ Alternaria alternata 0.48 kU/L Ab normal (applies to non-numeric results) [facility] ([facility]) I258-GsB Mucor racemosus Laboratory test result Normal (applies to non-numeric results) [facility] ([facility]) L281-DtB Stemphylium Herbarum Laboratory test result Normal (applies to non- numeric results) [facility] ([facility]) R463-DbJ Common Silver Birch Laboratory test result Normal (applies to non- numeric results) [facility] ([facility], ) J175-MiJ [place], White Laboratory test result Milagros l (applies to non-numeric results) [facility] ([facility]) H358-WeX Elm, Algerian Laboratory test result No rmal (applies to non-numeric results) [facility] ([facility], ) T820-OpH Lakhwinder, White Laboratory test result Milagros l (applies to non-numeric results) [facility] ([facility], ) Q121-ByN Maple/[place] Laboratory test result Normal (applies to non-numeric results) [facility] ([facility], ) T834-WfO Hazel[place] Laboratory test result No rmal (applies to non-numeric results) [facility] ([facility], ) C454-PpH White [place] Laboratory test result N ormal (applies to non-numeric results) [facility] ([facility], ) C743-RlX [place], White Laboratory test result N ormal (applies to non-numeric results) [facility] ([facility], ) L930-QpV Ragweed, Short Laboratory test result N ormal (applies to non-numeric results) [facility] ([facility], ) K963-KjU [place], Mountain Laboratory test result Normal (applies to non-numeric results) [facility] ([facility]) Q830-FmS Mugwort Laboratory test result Normal ( applies to non-numeric results) [facility] ([facility]) D900-RqU Plantain, Georgian Laboratory test result Normal (applies to non- numeric results) [facility] ([facility]) F563-QkP Pigweed, Rough Laboratory test result N ormal (applies to non-numeric results) [facility] ([facility]) F901-XdW Sheep [place] Laboratory test result Nor mal (applies to non-numeric results) [facility] ([facility]) I062-VwH Nettle Laboratory test result Normal (a pplies to non-numeric results) [facility] ([facility]) Performed at: [address] [id number] Commercial Underwriter: Adam Barclay MD, Phone: [phone] ID Date Data Source [id number] 12/12/2020 03:03:00 PM EDT [facility] ([facility]) Name Value Range Interpretation Code Description Data Giovana rce(s) Supporting Document(s) IgE [Mass/volume] in Serum 297.0 IU/ml Above high normal [facility] ([facility]) ID Date Data Source [id number] 11/28/2020 02:43:[address] [facility] Name Value Range Interpretation Code Description Data Giovana rce(s) Supporting Document(s) Progress Note [facility] WQQXLw9uCvUPWiWx61/DWTfxZLQdg5JcPAxqAIw1QGhnAIMtP2WtGKG3xT3cHFB8CEhSSaArDtYqCIS6 [facility] [file] [id number] ID Date Data Source [id number] 11/29/2020 01:16:[address] [facility] Service Cmnt XXX-Imp : NoneMicroorganism XXX Cult : 40,000 col/mlIndigenous microorganisms. Name Value Range Interpretation Code Description Data Giovana rce(s) Supporting Document(s) ID Date Data Source [id number] 11/28/2020 03:06:[address] [facility] Name Value Range Interpretation Code Description Data Giovana rce(s) Supporting Document(s) Color of Urine [facility] Clarity of Urine [facility] Specific gravity of Urine by Refractometry automated 1.009 1.003 -1.030 [facility] pH of Urine by Automated test strip 6.0 5.0-8.0 [facility] Protein [Mass/volume] in Urine by Automated test strip Neg [facility] Glucose [Mass/volume] in Urine by Automated test strip Neg [facility] Ketones [Mass/volume] in Urine by Automated test strip Neg [facility] Bilirubin.total [Presence] in Urine by Automated test strip Negative [facility] Hemoglobin [Presence] in Urine by Automated test strip Neg [facility] Leukocyte esterase [Presence] in Urine by Automated test strip Negative [facility] Nitrite [Presence] in Urine by Automated test strip Negati [facility] Leukocytes [#/area] in Urine sediment by Automated count 0 /HPF 0 -5 [facility] Erythrocytes [#/area] in Urine sediment by Automated count 0 /HPF 0-3 [facility] ID Date Data Source [id number] 11/02/2020 09:55:00 AM EDT [facility] Name Value Range Interpretation Code Description Data Giovana rce(s) Supporting Document(s) SARS-CoV-2 (COVID-19) RNA [Presence] in Respiratory specimen by ADONAY with probe detection Not Detected [facility] This lab was ordered by [facility] and reported by [employer]. ID Date Data Source [id number] 10/25/2020 08:49:00 AM EDT [facility] Patient: NICK MEEK [facility].VisitID: [id number] [place] [address] [phone], MRegistration Date/Time: 10/24/2020 16:38 Weight:174.1 kg (S). [...] rce(s) Supporting Document(s) ID Date Data Source [id number] 10/24/2020 07:15:00 PM EDT [facility] [...] rce(s) Supporting Document(s) ID Date Data Source [id number] 10/24/2020 05:40:00 PM EDT [facility] l TSYSORDER [id number] Name Value Range Interpretation Code Description Data Giovana rce(s) Supporting Document(s) MAGNESIUM 2.1 mg/dL 1.8-2.4 [facility] ID Date Data Source [id number] 10/24/2020 05:40:00 PM EDT [facility] l TSYSORDER [id number] Name Value Range Interpretation Code Description Data Giovana rce(s) Supporting Document(s) LIPASE 94 U/L 73-393 [facility] ID Date Data Source [id number] 10/24/2020 05:40:00 PM EDT [facility] l TSYSORDER [id number] Name Value Range Interpretation Code Description Data Giovana rce(s) Supporting Document(s) GLUCOSE 94 mg/dL 74-106 [facility] BLOOD UREA NITROGEN 10 mg/dL 7-18 [facility] ital CREATININE 0.93 mg/dL 0.7-1.3 [facility] SODIUM 142 mmol/L 136-145 [facility] POTASSIUM 3.5 mmol/L 3.5-5.1 [facility] CHLORIDE 104 mmol/L 98-107 [facility] CO2 27 mmol/L 21-32 [facility] CALCIUM 9.0 mg/dL 8.5-10.1 [facility] ANION GAP 11.0 mmol/L 5-12 [facility] GLOMERULAR FILTRATION RATE >90 mL/min [facility] GFR IS CALCULATED IN mL/min/1.73m2 MILAGROS L FUNCTION: >90MILDLY DECREASED: 60-89MILDY TO MODERATELY DECREASED: 45-59 MODERATELY TO SEVERELY DECREASED: 30-44SEVERELY DECREASED: 15-29RENAL FAILURE: <15 AST 24 U/L 15-37 [facility] ALT 57 U/L 12-78 [facility] ALKALINE PHOSPHATASE 85 U/L 46-116 [facility] pital TOTAL BILIRUBIN 0.4 mg/dL 0.2-1.0 [facility] TOTAL PROTEIN 8.0 g/dl 6.4-8.2 [facility] ALBUMIN 3.6 gm/dL 3.4-5.0 [facility] ID Date Data Source [id number] 10/24/2020 05:34:00 PM EDT [facility] TSYSORDER [id number] Name Value Range Interpretation Code Description Data Giovana rce(s) Supporting Document(s) PARTIAL THROMBOPLASTIN TIME 26.5 SECONDS 21.2-27.3 [facility] ID Date Data Source [id number] 10/24/2020 05:34:00 PM EDT [facility] TSYSORDER [id number] Name Value Range Interpretation Code Description Data Giovana rce(s) Supporting Document(s) PROTHROMBIN TIME (PATIENT) 10.5 SECONDS 9.1-11.6 [facility] INR 1.01 0.87-1.06 [facility] ID Date Data Source [id number] 10/24/2020 05:17:00 PM EDT [facility] TSYSORDER [id number] Name Value Range Interpretation Code Description Data Giovana rce(s) Supporting Document(s) WHITE BLOOD COUNT 9.6 K/mm3 4.0-10.0 [facility] RED BLOOD COUNT 5.37 M/mm3 4.50-6.00 [facility] HEMOGLOBIN 15.9 gm/dL 14.0-18.0 [facility] HEMATOCRIT 46.9 % 42.0-54.0 [facility] MEAN CELL VOLUME 87.3 fl 80-96 [facility] MEAN CORPUSCULAR HEMOGLOBIN 29.6 pg 27.0-31.0 [facility] MEAN CORPUSCULAR HGB CONC 33.9 g/dl 32.0-36.0 [facility] RED CELL DISTRIBUTION WIDTH 13.2 % 10.0-14.5 [facility] PLATELET COUNT 220 K/mm3 172-450 [facility] MEAN PLATELET VOLUME 9.1 fl 9.0-13.0 [facility] pital GRAN % 71.2 % 50-80.0 [facility] IG% 0.1 % 0.0-0.2 [facility] LYMPH % 18.7 % 25.0-50.0 L [facility] MONO % 6.5 % 2.0-10.0 [facility] EOS % 3.3 % 0-5.0 [facility] BASO % 0.2 % 0.0-2.0 [facility] GRAN # 6.9 K/mm3 2.0-8.00 [facility] IG# 0.0 K/mm3 0.0-0.2 [facility] LYMPH # 1.8 K/mm3 1.0-5.0 [facility] MONO # 0.6 K/mm3 0.10-1.20 [facility] EOS # 0.3 K/mm3 0.0-0.5 [facility] BASO # 0.0 K/mm3 0.0-0.2 [facility] ID Date Data Source [id number] 10/24/2020 05:19:00 PM EDT [facility] TSYSORDER [id number] Name Value Range Interpretation Code Description Data Giovana rce(s) Supporting Document(s) URINE COLOR. YELLOW [facility] GLUCOSE (UA) NEGATIVE mg/dL NEGATIVE [facility] URINE BILIRUBIN NEGATIVE NEGATIVE [facility] URINE KETONE NEGATIVE mg/dL NEGATIVE [facility] SPECIFIC GRAVITY,URINE 1.010 1.005-1.030 [facility] URINE BLOOD NEGATIVE NEGATIVE [facility] PH,URINE 6.0 5.0-9.0 [facility] URINE PROTEIN NEGATIVE mg/dL NEGATIVE [facility] UR[facility] UROBILINOGEN NORMAL(0.2-1) mg/dL 0-1 [facility] URINE NITRATE NEGATIVE NEGATIVE [facility] URINE LEUKOCYTE ESTERASE NEGATIVE NEGATIVE [facility] ID Date Data Source [id number] 10/12/2020 09:20:00 AM EDT [facility] ([facility]) Name Value Range Interpretation Code Description Data Giovana rce(s) Supporting Document(s) Lipoprotein lipase [Enzymatic activity/volume] in Serum or Plasma 149 [facility] ([facility]) ID Date Data Source [id number] 10/12/2020 09:20:00 AM EDT [facility] ([facility]) Name Value Range Interpretation Code Description Data Giovana rce(s) Supporting Document(s) White Blood Count 10 4.0-10.0 [facility] ([facility]) Red Blood Count 5.87 4.30-6.10 [facility] ([facility]) Hematocrit 52.5 [facility] ([facility]) Hemoglobin 17.1 [facility] ([facility]) Platelets 224 150-450 [facility] ([facility]) ID Date Data Source [id number] 10/12/2020 09:20:00 AM EDT [facility] Name Value Range Interpretation Code Description Data Giovana rce(s) Supporting Document(s) Troponin Laboratory test result [facility] ([facility]) ID Date Data Source [id number] 10/12/2020 09:20:00 AM EDT [facility] ([facility]) Name Value Range Interpretation Code Description Data Giovana rce(s) Supporting Document(s) Creatine kinase [Enzymatic activity/volume] in Serum or Plasma 131 [facility] ([facility]) CPK-MB 1.1 [facility] ID Date Data Source [id number] 10/12/2020 09:20:00 AM EDT [facility] ([facility]) Name Value Range Interpretation Code Description Data Giovana rce(s) Supporting Document(s) Aspartate aminotransferase [Enzymatic activity/volume] in Se rum or Plasma 45 7-37 [facility] ([facility]) Alanine aminotransferase [Enzymatic activity/volume] i n Serum or Plasma 62 30-65 12-78 [facility] ([facility]) Alk Phos 101 50-136 [facility] ([facility]) Albumin 3.9 3.2-5.2 [facility] ([facility]) Total Protein 8.4 6.4-8.2 [facility] ([facility] Total Bilirubin 0.4 0.0-1.0 [facility] A/G Ratio 0.9 1.00-1.93 [facility] ([facility]) ID Date Data Source [id number] 10/07/2020 09:14:00 AM EST [facility] ([facility]) Name Value Range Interpretation Code Description Data Giovana rce(s) Supporting Document(s) Albumin [Mass/volume] in Serum or Plasma 3.5 [facility] Alanine aminotransferase [Enzymatic activity/volume] in Serum or Pl asma 62 [facility] Calcium [Mass/volume] in Serum or Plasma 8.6 [facility]) Carbon dioxide, total [Moles/volume] in Serum or Plasma 25 [facility] Chloride [Moles/volume] in Serum or Plasma 113 [facility] ([facility]) Potassium [Moles/volume] in Serum or Plasma 4.0 [facility] ([facility]) Alkaline phosphatase [Enzymatic activity/volume] in Serum or Plasma 8 4 [facility] ([facility]) Sodium 144 [facility] ([facility]) Protein [Mass/volume] in Serum or Plasma 7.1 [facility] ([facility]) Aspartate aminotransferase [Enzymatic activity/volume] in Serum or Plasma 23 [facility] ([facility]) Glucose 95 70-100 [facility] ([facility]) Urea nitrogen [Mass/volume] in Serum or Plasma 9 [facility]) Creatinine For GFR 0.85 [facility] ([facility]) ID Date Data Source [id number] 10/05/2020 09:45:00 AM EST [facility] Name Value Range Interpretation Code Description Data Giovana rce(s) Supporting Document(s) SARS coronavirus 2 RNA Not Detected [facility] This lab was ordered by [facility] and reported by [facility]. ID Date Data Source [id number] 08/09/2020 02:33:00 PM EST [facility] Name Value Range Interpretation Code Description Data Giovana rce(s) Supporting Document(s) SARS-CoV-2 (COVID 19) NEGATIVE - SARS-CoV-2 (COVID19) [facility] This lab was ordered by [facility] a nd reported by [facility]. ID Date Data Source [id number] 07/31/2020 05:40:00 PM EST [facility] Name Value Range Interpretation Code Description Data Giovana rce(s) Supporting Document(s) SARS coronavirus 2 RNA [Presence] in Res piratory specimen by ADONAY with probe detection [facility] This lab was ordered by [facility] a nd reported by [facility]. ID Date Data Source [id number] 06/28/2020 01:51:[address] [facility] Name Value Range Interpretation Code Description Data Giovana rce(s) Supporting Document(s) Progress Note [facility] HGQFQg5sRrUUHbDi38/MJGlnVRGtv0ZfJLwfVMo2PObnPYGmL7MhEYQ2pP1qTCS0RNoRZnZgIxJrVqKm lbm [file] ICAgICAgICAgICAgICAgICAgICAgICAgICAgICAgICAgICAgICAgICAgICAgICAgICAgICAgICAgICAg ICAgICAgICAgICAgICAgICAgICAgICANCiAgICAgIC AgICAgICAgICAgICAgICAgICAgICAgICAgICAgICAgICAgICAgICAgICAgICAgICAgICAgICAgICAgIC AgICAgICAgICAgICAgICAgICAgICAgICAgICAgICAgICANCiAgICAgICAgICAgICAgICAgICAgICAgIC AgICAgICAgICAgICAgICAgICAgICAgICAgICAgICAg ICAgICAgICAgICAgICAgICAgICAgICAgICAgICAgICAgICAgICAgICAgICANCiAgICAgICAgICAgICAg ICAgICAgICAgICAgICAgICAgICAgICAgICAgICAgICAgICAgICAgICAgICAgICAgICAgICAgICAgICAg ICAgICAgICAgICAgICAgICAgICAgICAgICANCiAgIC AgICAgICAgICAgICAgICAgICAgICAgICAgICAgICAgICAgICAgICAgICAgICAgICAgICAgICAgICAgIC AgICAgICAgICAgICAgICAgICAgICAgICAgICAgICAgICAgICANCiAgICAgICAgICAgICAgICAgICAgIC AgICAgICAgICAgICAgICAgICAgICAgICAgICAgICAg ICAgICAgICAgICAgICAgICAgICAgICAgICAgICAgICAgICAgICAgICAgICAgICANCiAgICAgICAgICAg ICAgICAgICAgICAgICAgICAgICAgICAgICAgICAgICAgICAgICAgICAgICAgICAgICAgICAgICAgICAg ICAgICAgICAgICAgICAgICAgICAgICAgICAgICANCi AgICAgICAgICAgICAgICAgICAgICAgICAgICAgICAgICAgICAgICAgICAgICAgICAgICAgICAgICAgIC AgICAgICAgICAgICAgICAgICAgICAgICAgICAgICAgICAgICAgICANCiAgICAgICAgICAgICAgICAgIC AgICAgICAgICAgICAgICAgICAgICAgICAgICAgICAg ICAgICAgICAgICAgICAgICAgICAgICAgICAgICAgICAgICAgICAgICAgICAgICAgICANCiAgICAgICAg ICAgICAgICAgICAgICAgICAgICAgICAgICAgICAgICAgICAgICAgICAgICAgICAgICAgICAgICAgICAg ICAgICAgICAgICAgICAgICAgICAgICAgICAgICAgIC ANCjw/wRAcL7scnYDuaeY6Y9ybCa5VQk3GZK3jl0BaOFDeEQgwmcZrSjpZOgUqDWOqDisVZkp6GRahNH 0CzUGuP3IsG9AoVDzdFF8DJWFfWDTfeTJwSKWcPKSxDiJ9USLwYSmmMY5RkOAaOUewVUHtZVNaNzIaBU TmVN7FRLLnT680iqAlVh1KWd7HMbZuZW8szp6TAsww SVFlYvsXCry3OGahPN9MeNDvqRZdPGSwLVLVPzLdB0uwh0TaYqsuAANFWTwkGK8Dr8ImiAOiHGx+Pg0K DV4uv9SfCXnmKBBmKM2lvu7SRPtKCpEfX0WbnDixOKGzs3hlRVSkIK4ynPDiOAS2BHOic4L0ED5nAoHc wmEcg8PkJpZgSjgiHCCzJNCaHGRbRu1cNDCoWLJoSr KeUZEAQX8BZHRjPLFwlNOrHFZvDETROZ0GNCawRSY8YIKotoMswZTbNQitEK9PSPKgpsRpDaucSFFZAW o+Xp6WGH3du9BiUOzvYMCrES1pzz3PUYjOAmEcO2H5mFQkB8T7FCvcPj4MPLZwABXnKpDsKMHFMPqrWV 0ZHT7rxiZ9XD9YoULeJFGsUVLhmGScUXu9X82usMXt LObzZT2ISDJ+Janeen+Tm8QBNUwDLAwBIDlAzHlOBLFNlAjN3StB4RHc5MoS0IgTO39zDxtubWaVFadYC8B CU3lEPUbNVMFKY7WdADwkW7bhiWiRnMrDZATMxLnT69zrUDdHHAvLYC2HNQtVo6ZELBeY1ShchSyoWjz dgFjGKQdMYAFMN6GMPylfmPcjGHvuOvlJX70lKclZI 5DNe6RYqZlCL5joo9EeYHsDn7LZTDtEM8PKMMgUQTbAZNlDAP3ZCRaRcOaMEfeZAGxHNOnLJX7WUVaNB VgOL5CPuCbFHFtMcI1ZJPrLDZqKTKdad8TTOReLTGbPvU1IlRoSVTtQZOmWOhpQUGxAZDnJPX3AOVnTE QhXI8VXxNaEWPhCVL2NVNqKLFtQPMifn4KNJZpFQJr JVR3QcOoEBCyIIErCUloBGZzKFG9IFXrVMLuLMOvWM7KJgSzWUYbQNtqUIDtPYFdVLCktz8ERLHzAZBe NEO3DsVvGJBtLLOzMItlAIDhMXG9LmV2UMGbBSNdAK5QVmEeCJJtXRq3JROgQPVhPVOzog8NPOAvFJOf AYO0UKMqZWXgQTUxCXsmBLUdOLA1ZxIsUNAyUPIpQB 2NPiHjBDEgAOm7YDnwUGXzREBiky6EOJZdBWZdCGY0SPIcSSIdDWSbCGsgCHDoTTUrGHKvNJLuALRcSP 5OXgPgNVHhGxG1PuulJPUxFBBnrm9JTQXmISBgRdChLLVtQBXpBSRiOOjeLLEdPAVoQLF9VGAgSFHgZF 9ZZoDuUTFmLiDmUMkfOKOzOHOflm0NMFQuTEPaSbW6 BDRvWHRjODDtPOcnQTJvTOVtBAj2ODMxGFUjGB5OAiJtSTWxKpK1FQkvVDWcCSPxlx4LZPEyJDBuBYCt PvVlTQIxGXAmZWmfSFAsLHE1Xvy2AJFnVGYwHL0UPoQuXTToOiPtBJfxMIRtHKLptv2OPJPiUBMiYwY7 IJJeKNGaXFWgAVreEUYrQCM3JcRaDBJvCAEiGB3CNb VlNWGvLnB3EFxlIJWfXYYnis3PpJErdHbnhk3ZRGzCPh0ByCwzDUPxSBasWx8jpCMuASAfRNDBFj8Mnf GaFIHjVPISJCwdVAByXJFuBsZyNtPnOdE3NMNmTSL1NIQhWhppRsTaEgQbCKGlNjZ1BLJhOXSkQQSpVF YjB9QaOrlmXVBfZNC1GVYkOPM9KxJ+XL9xPRl+Uv9Tt9YkbmQ7ooVsNLrbQnAnLf4QCNJKB3JNJa== ID Date Data Source [id number] 06/06/2020 03:12:03 PM [facility] Name Value Range Interpretation Code Description Data Giovana rce(s) Supporting Document(s) Progress Note [facility] CCCGGo2uKwJNZtAm79/GUQzmVVGqp8SrGOoeXJw3XSqrGCVjD0CoYUF3zD6yQCT3SXtYTlHbHxSgWPSt lbm [file] NcF0VOJ9UsT8LeK+JK3vXIn+Ij1Xt0IqssY8blGfOGfzBKJmUi7DPASMA9URCf== ID Date Data Source [id number] 05/10/2020 10:14:00 AM EDT [facility] ([facility]) Name Value Range Interpretation Code Description Data Giovana rce(s) Supporting Document(s) Surgical pathology study Laboratory test result [facility] ([facility]) FINAL DIAGNOSIS Esophagus, below Z-line, biopsy: Junctional mucosa with no significant pathologic changes. No evidence of intestinal metaplasia or dysplasia. 05/11/2020 - 150 CLINICAL DIAGNOSIS Heartburn, rectal bleeding, constipation 05/10/2020 - 1451 GROSS DIAGNOSIS Received in formalin labeled "biopsy below Z line R/O Juarez's" and consists of two fragments of steel tissue measuring 0.4 x 0.3 x 0.2 cm. in aggregate. All in one. -SV 05/10/2020 - 1451 Signed BRIE MONTAGUE MD 05/12/2020 1140 ID Date Data Source [id number] 05/09/2020 02:17:[address] [facility] Name Value Range Interpretation Code Description Data Giovana rce(s) Supporting Document(s) Progress Note [facility] BYJIHu8fYyFBKmUv17/WOSirQSGix4CyJHymTGg6CBynYVRaB2IpWHU3sN0kCLW5QEgCWhFdJjUpOUHb [facility] [file] ICAgICAgICAgICAgICAgICAgICAgICAgICAgICAgICAgICAgICAgICAgICAgICAgICAgICAgICAgICAg ICAgICAgICAgICAgICAgICAgICAgICAgICAgICAgICAgDQogICAgICAgICAgICAgICAgICAgICAgICAg ICAgICAgICAgICAgICAgICAgICAgICAgICAgICAgIC AgICAgICAgICAgICAgICAgICAgICAgICAgICAgICAgICAgICAgICAgICAgDQogICAgICAgICAgICAgIC AgICAgICAgICAgICAgICAgICAgICAgICAgICAgICAgICAgICAgICAgICAgICAgICAgICAgICAgICAgIC AgICAgICAgICAgICAgICAgICAgICAgICAgDQogICAg ICAgICAgICAgICAgICAgICAgICAgICAgICAgICAgICAgICAgICAgICAgICAgICAgICAgICAgICAgICAg ICAgICAgICAgICAgICAgICAgICAgICAgICAgICAgICAgICAgDQogICAgICAgICAgICAgICAgICAgICAg ICAgICAgICAgICAgICAgICAgICAgICAgICAgICAgIC AgICAgICAgICAgICAgICAgICAgICAgICAgICAgICAgICAgICAgICAgICAgICAgDQogICAgICAgICAgIC AgICAgICAgICAgICAgICAgICAgICAgICAgICAgICAgICAgICAgICAgICAgICAgICAgICAgICAgICAgIC AgICAgICAgICAgICAgICAgICAgICAgICAgICAgDQog ICAgICAgICAgICAgICAgICAgICAgICAgICAgICAgICAgICAgICAgICAgICAgICAgICAgICAgICAgICAg ICAgICAgICAgICAgICAgICAgICAgICAgICAgICAgICAgICAgICAgDQogICAgICAgICAgICAgICAgICAg ICAgICAgICAgICAgICAgICAgICAgICAgICAgICAgIC AgICAgICAgICAgICAgICAgICAgICAgICAgICAgICAgICAgICAgICAgICAgICAgICAgDQogICAgICAgIC AgICAgICAgICAgICAgICAgICAgICAgICAgICAgICAgICAgICAgICAgICAgICAgICAgICAgICAgICAgIC AgICAgICAgICAgICAgICAgICAgICAgICAgICAgICAg DQogICAgICAgICAgICAgICAgICAgICAgICAgICAgICAgICAgICAgICAgICAgICAgICAgICAgICAgICAg HZFgWYHlWGYrBHGmPYJdZMXbQHVqLZBdZDWyPKQyRXNmGWFdQXRbYTOrWGg2B6niJUImGIQfUA7qCXx6 Jz8+BIoURnUhIVJ9xcKwuE1YIM4sy4DuTIwjGFVgs4 EoEJe4XP7PPMOtFIkaGA0RXWzntq2DFFPdLSTeeIEYb3pwQwIrBKT1WYChRddkUM0TJNXeV1qvahRaPS TjTQLJKWbnXYCBYTrtVLKVEGYxIBYwQqBdHAimMA6Mf2XfuHB2MLa+Fg9YHX6cv2QsHPdnXBMhBI7uqy 3YYRjQDxEtL5HcqiW7SUSsGAMdHp8DEMZeABBatOPb SkDzKFECYmDbR7YnsH60JJPBRn1+NCxlykScRkiTKzTfGPQpl2ZvFOt2IX7KJFHlYTq5mSTdRRUdO5Cz j2DrHm56BZVaNafuG1IxxAwhjcCYEHIdUWggrUsfVW4GVXX8MHQdBvPcScLpKiLdMCL3TSNyRD4lKRpq DR2NACG3FRjjBXNqYEKrW3xKPpObOXLtQISutThzTP 6OHwZsX5XmojMxxBPgNHUrEPRZTk8+HGjijfKqAoyBXrAgVVRdp2OiUKo2MS5ULMDgSIncXB9TZKHbiJ 9mCHjlHR2HTkAlLCDcLURHGaSoU68moASxHPf5P0RvYgOxOWLxGbefNEDzVAjxFtKuJRHlVlDtKCxgVX 4+ID4+ADulAT2AQTwxsmKxWVDnBp0DPORoQZIzTZ6j XSHxBKVlO7L8wZmzDWODWlFfZ4dqdllkJS7bSKInX632mYyjjnEqENImFSGqBp3RVLHwPZM4TLDowOMr PyEnFFIRXTdqOD4CoSBoIAN6hO2xSAcvZVAfEGCmF4iSRrVkrXwuAD66lHujubQvjHEqQBy+Eg8WBZ0w q2BvGQt5vfJlZEftHES6JRtoVQKpSGQwTMTrHWH1SF R8TUYEZhCkMYXeUGElKFswWNOuVQFeiw0VQDDsHGG2Fpx8TNWgIWMdUWYyOPorJWFhZBF4IVa9HDXtJB HrNS4YOfJhOXGrHOEyUXxdNEMiWNTkcn6AXJNePPUqLcJ3AxSnBUOcMJUoFLnnWBEcRCKlBMRaWISgQD NnYU8YGeQeJJTkCXujXAOwWSOwGXUepy5TWIPaQEBh DdE2RwUhEJSjNQQxFAizYYImUMKiPgD5QYMzRFFhKV7BHkOqPLAzKLZ1DtSwZJHbSDVzdk3HUKOaPMHg RiEcEELoWNFuEQBoGYkeXGHcNHLvYoA9ATCmJQAjGB8BSpViVNOfRYLvTTJvPFGxKLCzhx3VKEAjGDWf LXR8VHXwOUYcGCUoAOadTONgAQA0VuC5HSVeOHRgTL 5UZpMlRVVtLEC1GqKoQXOjIDVguo4ZAIXfAPAtYNtmPHVlOGLqJLVoOPcpGKIdWDX4MQHeOLBqDJJbRQ 4RZsZzDGIvCDdtKSCtMRJnWURlti8PYCBdSQY7HBt8UjUsGUUlUUWsLAhrTAZpDEBfYiYcMRXlIWVrOM 9ANpPpBGEnZOMdIqYcLPIaPDCzfb5EGCFaGVC9NMUw JqUxDLMgQPMiRMjrOGWrFQLvEXJsUYMcIMRgOA1GLmDrFPFqTGWeLHUsIMPtQJLlya5EFQGhEGL6TnEk HcFyZSXtVVFlPZazLUHkRZEaSIV0CBAeWAHcOI3VRvDtQAMwZEN7ZMHvGQFzSAGoem1HVYDfEXO0Oehy VyDpVEYwRXWdPGmuWBVmQFS6XpE9RKLqFXJfJH6JKs AqPTFvWEC8KLFlRJQcIFKdll3BAISlOCE3LXl3IgDsYRNbAAAtBBblJNGyVIO3MTZ6IARxRMAuCB0RTq UrREwyCJRFOch9KMboO0r0WIPiYS4XY3Nca5XoOnSaHQDEVZbsBL9alvNdGSKvIt3JD5cYAfc8EAReO7 HiTmGyIXR3BUqlDeJcQeY5JvduJuJdPdO5UZ6uMJTv HGN8IIVlTtB9FLGeIBL2QWMsLETkRJLcY7YrUXgrIwVkLM4OGt4STgK4SUE3dFRvQn9JGYHsYKDIJtAt MY1VOTu= ID Date Data Source [id number] 05/05/2020 11:55:00 AM EDT [facility] Name Value Range Interpretation Code Description Data Giovana rce(s) Supporting Document(s) SARS coronavirus 2 RNA [facility] This lab was ordered by [facility] and reported by [facility]. ID Date Data Source [id number] 04/27/2020 06:09:[address] [facility] XR FOOT 3 OR MORE VIEWS [id number] RESUL TInterpreted by:INGRID Smithight ankle 2 views and right [...] rce(s) Supporting Document(s) ID Date Data Source [id number] 04/27/2020 06:09:[address] [facility] XR ANKLE 2 VIEWS [id number] RESULTInterp reted by:INGRID Smithight ankle 2 views [...] rce(s) Supporting Document(s) ID Date Data Source [id number] 04/26/2020 04:20:[address] [facility] Name Value Range Interpretation Code Description Data Giovana rce(s) Supporting Document(s) Progress Note [facility] XPAAMd5oKhENQrDt06/TEFreYDFak5YmUFspRFm6VYlhLIHpS0GhWUT7yC2cHCD0PWrDWtGhToSwAZRk lbm [file] jtFvUtSJ3VKp9OOcZ2SKV6zKCjJn4TYcJ9VblCTlXwQB9BMTw= Procedure Social History Code Duration Value Status Description Data Source(s ) Alcohol intake 03/23/2021 12:00:00 AM EDT Current non-d roscoe of alcohol (finding) completed Current non-drinker of alcohol (finding) [facility] Tobacco use and exposure 03/23/2021 12:00:00 AM EDT Never used co mpleted Never used [facility] Smoking 03/23/2021 12:00:00 AM EDT Never smoker completed Never s moker [facility] Alcohol intake 02/20/2021 12:00:00 AM EDT Current non-d roscoe of alcohol (finding) completed Current non-drinker of alcohol (finding) [facility] Alcohol intake 02/14/2021 12:00:00 AM EDT Current non-d roscoe of alcohol (finding) completed Current non-drinker of alcohol (finding) [facility] Alcohol intake 01/30/2021 12:00:00 AM EDT Current non-d roscoe of alcohol (finding) completed Current non-drinker of alcohol (finding) [facility] Alcohol intake 01/09/2021 12:00:00 AM EDT Current non-d roscoe of alcohol (finding) completed Current non-drinker of alcohol (finding) [facility] Alcohol intake 12/26/2020 12:00:00 AM EDT Current non-d roscoe of alcohol (finding) completed Current non-drinker of alcohol (finding) [facility] 12/12/2020 12:00:00 AM EDT Denies Smoking completed Denie s Smoking [facility] ([facility], ) Alcohol intake 11/28/2020 12:00:00 AM EDT Current non-d roscoe of alcohol (finding) completed Current non-drinker of alcohol (finding) [facility] Smoking 10/30/2020 12:00:00 AM EDT Patient has never smoked co mpleted Patient has never smoked [facility] ([facility]) Alcohol intake 06/28/2020 12:00:00 AM EST Current non-d roscoe of alcohol (finding) completed Current non-drinker of alcohol (finding) [facility] Alcohol intake 06/06/2020 12:00:00 AM EST Current non-d roscoe of alcohol (finding) completed Current non-drinker of alcohol (finding) [facility] Alcohol intake 05/09/2020 12:00:00 AM EDT Current non-d roscoe of alcohol (finding) completed Current non-drinker of alcohol (finding) [facility] Alcohol intake 04/26/2020 12:00:00 AM EDT Current non-d roscoe of alcohol (finding) completed Current non-drinker of alcohol (finding) [facility] Vital Signs ID Date Data Source UNK Name Value Range Interpretation Code Description Data Source(s) Body weight 381.8 [lb_av] 381.8 [lb_av] [facility] Body height 71 [in_i] 71 [in_i] W1 ([facility]) Body mass index (BMI) [Ratio] 53.24 kg/m2 53.24 kg/m2 eCW1 ([facility]) Heart rate 107 /min 107 /min eCW1 ([facility]) Respiratory rate 18 /min 18 /min eCW1 ([facility]) Body temperature 97.0 [degF] 97.0 [degF] eCW1 ( [facility]) Diastolic blood pressure 88 mm[Hg] 88 mm[Hg] eCW1 ([facility]) Systolic blood pressure 128 mm[Hg] 128 mm[Hg] e CW1 ([facility]) [place] body weight 172 [lb_av] 172 [lb_av] MEDEN T ([facility], ) Body weight 175.543 kg 175.543 kg [facility] ([facility]) Body surface area Derived from formula 2.79 m2 2.79 m2 [facility] ([facility]) Diastolic blood pressure 90 mm[Hg] 90 mm[Hg] [facility] ([facility]) Systolic blood pressure 130 mm[Hg] 130 mm[Hg] M [facility] ([facility]) Heart rate 103 /min 103 /min [facility] ([facility]) Oxygen saturation in Arterial blood by Pulse oximetry 98 % 98 % [facility] ([facility]) Body height 71 [in_i] 71 [in_i] [facility] ([facility]) 5'11" Body weight 387.00 [lb_av] 387.00 [lb_av] [facility] ([facility]) Body mass index (BMI) [Ratio] 54.0 kg/m2 54.0 k g/m2 [facility] ([facility]) Body height 71 [in_i] 71 [in_i] [facility] ([facility]) 5'11" Systolic blood pressure 138 mm[Hg] 138 mm[Hg] M [facility] ([facility]) Body surface area Derived from formula 2.80 m2 2.80 m2 [facility] ([facility]) Diastolic blood pressure 74 mm[Hg] 74 mm[Hg] [facility] ([facility]) Body weight 390.25 [lb_av] 390.25 [lb_av] [facility] T ([facility]) Body mass index (BMI) [Ratio] 54.4 kg/m2 54.4 k g/m2 [facility] ([facility]) [place] body weight 172 [lb_av] 172 [lb_av] [facility] T ([facility]) Body weight 177.017 kg 177.017 kg [facility] ([facility]) Body weight 394.00 [lb_av] 394.00 [lb_av] [facility] T ([facility]) Body height 71 [in_i] 71 [in_i] [facility] 5'11" Body mass index (BMI) [Ratio] 54.9 kg/m2 54.9 k g/m2 [facility] ([facility]) Heart rate 79 /min 79 /min [facility] ([facility]) Systolic blood pressure--sitting 103 mm[Hg] 103 mm[Hg] [facility] ([facility]) [employer], XL Cuff, Ra Diastolic blood pressure--sitting 71 mm[Hg] 71 mm[Hg] [facility] ([facility]) [employer], XL Cuff, Ra Body weight 402 [lb_av] 402 [lb_av] eCW1 ([facility]) Body height 71 [in_i] 71 [in_i] eCW1 ([facility]) Body mass index (BMI) [Ratio] 56.06 kg/m2 56.06 kg/m2 eCW1 ([facility]) Heart rate 103 /min 103 /min eCW1 ([facility]) Respiratory rate 18 /min 18 /min eCW1 ([facility]) Body temperature 97.3 [degF] 97.3 [degF] eCW1 ( [facility]) Systolic blood pressure 128 mm[Hg] 128 mm[Hg] e CW1 ([facility]) Diastolic blood pressure 86 mm[Hg] 86 mm[Hg] eCW1 ([facility]) Body weight 384 [lb_av] 384 [lb_av] [facility] [place] [facility] [place] Body height 71 [in_i] 71 [in_i] eCW1 ([facility]) Body mass index (BMI) [Ratio] 53.55 kg/m2 53.55 kg/m2 eCW1 ([facility]) Heart rate 111 /min 111 /min eCW1 ([facility]) Respiratory rate 18 /min 18 /min eCW1 ([facility]) Body temperature 97.3 [degF] 97.3 [degF] eCW1 ( [facility]) Systolic blood pressure 126 mm[Hg] 126 mm[Hg] e CW1 ([facility]) Diastolic blood pressure 88 mm[Hg] 88 mm[Hg] eCW1 ([facility]) Systolic blood pressure 120 mm[Hg] 120 mm[Hg] [facility] Body height 71 [in_i] 71 [in_i] [facility] ([facility]) 5'11" Body weight 407.00 [lb_av] 407.00 [lb_av] MEDEN T ([facility]) Body mass index (BMI) [Ratio] 56.8 kg/m2 56.8 k g/m2 [facility] ([facility]) Diastolic blood pressure 60 mm[Hg] 60 mm[Hg] [facility] ([facility]) Body weight 184.615 kg 184.615 kg [facility] ([facility]) Body surface area Derived from formula 2.85 m2 2.85 m2 [facility] ([facility]) [place] body weight 172 [lb_av] 172 [facility]_av[facility] Body weight 406 [lb_av] 406 [lb_av] eCW1 ([facility] [place]) Body height 71 [in_i] 71 [in_i] eCW1 ([facility]) Body mass index (BMI) [Ratio] 56.62 kg/m2 56.62 kg/m2 W1 ([facility]) Heart rate 112 /min 112 /min eCW1 ([facility]) Respiratory rate 18 /min 18 /min eCW1 ([facility]) Body temperature 96.7 [degF] 96.7 [degF] eCW1 ( [facility]) Systolic blood pressure 116 mm[Hg] 116 mm[Hg] e CW1 ([facility]) Diastolic blood pressure 80 mm[Hg] 80 mm[Hg] eCW1 ([facility]) Body surface area Derived from formula 2.86 m2 2.86 m2 [facility] ([facility]) Systolic blood pressure 154 mm[Hg] 154 mm[Hg] [facility] Diastolic blood pressure 88 mm[Hg] 88 mm[Hg] [facility] ([facility]) Body height 71 [in_i] 71 [in_i] [facility] ([facility]) 5'11" Body weight 409.12 [lb_av] 409.12 [lb_av] MED[facility] T ([facility]) Body mass index (BMI) [Ratio] 57.1 kg/m2 57.1 k g/m2 [facility] ([facility]) [place] body weight 172 [lb_av] 172 [lb_av] [facility] T ([facility]) Body weight 185.579 kg 185.579 kg [facility] ([facility]) Systolic blood pressure 122 mm[Hg] 122 mm[Hg] [facility] ([facility]) Diastolic blood pressure 80 mm[Hg] 80 mm[Hg] [facility] ([facility]) Heart rate 99 /min 99 /min [facility] ([facility]) Oxygen saturation in Arterial blood by Pulse oximetry 99 % 99 % [facility] ([facility]) Body temperature 96.8 [degF] 96.8 [degF] [facility] ([facility]) Body height 69 [in_i] 69 [in_i] [facility] ([facility]) 5'9" Body weight 406.00 [lb_av] 406.00 [lb_av] [facility] Body mass index (BMI) [Ratio] 59.9 kg/m2 59.9 k g/m2 [facility] ([facility]) [place] body weight 160 [lb_av] 160 [lb_av] [facility] Body weight 184.162 kg 184.162 kg [facility] ([facility]) Body surface area Derived from formula 2.79 m2 2.79 m2 [facility] ([facility]) Body weight 411 [lb_av] 411 [lb_av] eCW1 ([facility]) Body height 71 [in_i] 71 [in_i] eCW1 ([facility]) Body mass index (BMI) [Ratio] 57.32 kg/m2 57.32 kg/m2 eCW1 ([facility]) Heart rate 101 /min 101 /min eCW1 ([facility]) Respiratory rate 18 /min 18 /min eCW1 ([facility]) Body temperature 97.1 [degF] 97.1 [degF] eCW1 ( [facility]) Systolic blood pressure 132 mm[Hg] 132 mm[Hg] e CW1 ([facility]) Diastolic blood pressure 86 mm[Hg] 86 mm[Hg] eCW1 ([facility]) Body weight 414 [lb_av] 414 [lb_av] eCW1 ([facility]) Body height 71 [in_i] 71 [in_i] eCW1 ([facility]) Body mass index (BMI) [Ratio] 57.73 kg/m2 57.73 kg/m2 eCW1 ([facility]) Heart rate 115 /min 115 /min eCW1 ([facility]) Respiratory rate 19 /min 19 /min eCW1 ([facility]) Body temperature 96.4 [degF] 96.4 [degF] eCW1 ( [facility]) Systolic blood pressure 138 mm[Hg] 138 mm[Hg] e CW1 ([facility]) Diastolic blood pressure 86 mm[Hg] 86 mm[Hg] eCW1 ([facility]) Body weight 426 [lb_av] 426 [lb_av] eCW1 ([facility] [place]) Body height 71 [in_i] 71 [in_i] eCW1 ([facility]) Body mass index (BMI) [Ratio] 59.41 kg/m2 59.41 kg/m2 eCW1 ([facility]) Systolic blood pressure 136 mm[Hg] 136 mm[Hg] e CW1 ([facility]) Diastolic blood pressure 82 mm[Hg] 82 mm[Hg] eCW1 ([facility]) Body weight 412 [lb_av] 412 [lb_av] eCW1 ([facility] [place]) Body height 71 [in_i] 71 [in_i] eCW1 ([facility]) Body mass index (BMI) [Ratio] 57.46 kg/m2 57.46 kg/m2 eCW1 ([facility]) Systolic blood pressure 138 mm[Hg] 138 mm[Hg] e CW1 ([facility]) Diastolic blood pressure 92 mm[Hg] 92 mm[Hg] eCW1 ([facility]) ID Date Data Source [id number] 02/22/2021 01:50:02 PM [facility] Value Range Interpretation Code Description Data Source(s) TRANSFER FROM [facility] ID Date Data Source [id number] 02/22/2021 12:00:36 PM [facility] Value Range Interpretation Code Description Data Source(s) WEIGHT RECORDED 370 lb 370 lb [facility] Body height Measured [address] [facility] ID Date Data Source [id number] 02/02/2021 10:26:55 AM [facility] Value Range Interpretation Code Description Data Source(s) WEIGHT RECORDED 392 lb 392 lb [facility] Body height Measured 70.[address] [facility] ID Date Data Source [id number] 11/29/2020 01:16:49 PM [facility] Value Range Interpretation Code Description Data Source(s) WEIGHT RECORDED 389 lb 389 lb [facility] Body height Measured 70.[address] [facility] ID Date Data Source [id number] 06/09/2020 09:34:40 AM [facility] Value Range Interpretation Code Description Data Source(s) WEIGHT RECORDED 417.6 lb 417.6 lb [facility] Body height Measured 70.[address] [facility] ID Date Data Source [id number] 05/09/2020 02:17:55 PM [facility] Value Range Interpretation Code Description Data Source(s) WEIGHT RECORDED 407 lb 407 lb [facility] Body height Measured 70.[address] [facility] Patient Treatment Plan of Care Planned Activity Planned Date Details Description Data Source (s) Ciprofloxacin 500 MG Oral Tablet 05/17/2021 12:00:00 AM EDT eCW1 ([facility]) Ibuprofen 600 MG 04/18/2021 01:00:00 AM EDT NETSMART ([facility]) Vitamin D-2 50,000 U(1.25 mg) 04/18/2021 01:00:00 AM EDT [facility] ([facility]) Topiramate 200 MG 04/18/2021 01:00:00 AM EDT [facility] ([facility]) oxyCODONE HCl 5 MG 04/18/2021 01:00:00 AM EDT [facility] ([facility]) [facility] Omeprazole 20 MG 04/18/2021 01:00:00 [facility] Montelukast Sodium 10 MG 04/18/2021 01:00:00 AM ED[facility] Mirtazapine 15 MG 04/18/2021 01:00:00 AM EDT [facility] Methocarbamol 750 MG 04/18/2021 01:00:00 AM EDT [facility] Keppra 500 MG 04/18/2021 01:00:00 AM EDT [facility] AirDuo Digihaler 232-14 MCG/ACT 04/18/2021 01:00:00 AM EDT [facility]) Desvenlafaxine ER 100 MG 04/18/2021 01:00:00 AM EDT [facility]) Claritin 10 MG 04/18/2021 01:00:00 AM EDT [facility]) Aspirin 325 MG 04/18/2021 01:00:00 AM EDT [facility]) SM Pain Reliever 325 MG 04/18/2021 01:00:00 AM [facility] Doxycycline Monohydrate 100 MG 04/18/2021 01:00:00 AM EDT [facility]) Sucralfate 1 GM 04/18/2021 01:00:00 AM [facility] ([facility]) Triamcinolone Acetonide 0.1 % 04/18/2021 01:00:00 AM [facility] ([facility]) Trospium Chloride 20 MG 04/18/2021 01:00:00 AM [facility]) POLYETHYLENE GLYCOL 3350 142 MG/ML Oral Solution 02/07/2021 12:00:0 0 AM [facility] Docusate Sodium 100 MG Oral Capsule 02/06/2021 12:00:00 AM [facility] sennosides, [facility] 8.6 MG Oral Tablet 02/06/2021 12:00:00 AM [facility] Methocarbamol 750 MG Oral Tablet 02/06/2021 12:00:00 AM [facility] Aspirin 325 MG Delayed Release Oral Tablet 02/06/2021 12:00:00 AM [facility] Oxycodone Hydrochloride 5 MG Oral Tablet 02/06/2021 12:00:00 AM [facility] Magnesium Hydroxide 80 MG/ML Oral Suspension 02/03/2021 10:41:51 AM [facility] Diphenhydramine Hydrochloride 25 MG Oral Capsule 01/31/2021 04:10:4 4 PM [facility] Bisacodyl 10 MG Rectal Suppository 01/30/2021 05:03:08 [facility] (DURABLE MEDICAL EQUIPMENT SEE SIG) XX M [facility] 01/18/2021 12:00:00 AM [facility] (DURABLE MEDICAL EQUIPMENT SEE SIG) XX M [facility] 01/17/2021 12:00:00 AM [facility] trospium chloride 20 MG Oral Tablet 01/10/2021 12:00:00 AM [facility] 24 HR mirabegron 25 MG Extended Release Oral Tablet 01/10/20 12:00:00 AM [facility] Nystatin 100 UNT/MG Topical Powder 11/28/2020 12:00:00 AM [facility] Phenazopyridine hydrochloride 200 MG Delayed Release O ral Tablet 11/28/2020 12:00:00 AM [facility] Acetaminophen 325 MG Oral Tablet [Tylenol] 09/23/2020 12:00:[address] eCW1 ([facility]) MiraLax Mix-In [place] 17 GM 09/23/2020 12:00:00 AM EST eCW1 ([facility]) Misc. Devices (DURABLE MEDICAL EQUIPMENT SEE SIG) XX M ISC 06/28/2020 12:00:00 AM [facility] Clindamycin 0.01 MG/MG Topical Gel 06/12/2020 12:00:00 AM EST eCW1 ([facility]) Cephalexin 500 MG Oral Capsule 06/06/2020 01:30:[address] [facility] lidocaine (XYLOCAINE) 2 % urojet 20 mL 06/06/2020 01:30:[address] [facility] Doxycycline Monohydrate 50 MG Oral Capsule 05/15/2020 12:00:00 AM E DT eCW1 ([facility]) ciclopirox 10 MG/ML Medicated Shampoo 05/15/2020 12:00:00 AM EDT eCW1 ([facility]) alclometasone dipropionate 0.5 MG/ML Topical Cream 05/15/2020 12 :00:00 AM EDT eCW1 ([facility]) Doxycycline Monohydrate 50 MG Oral Capsule 05/15/2020 12:00:00 AM E DT eCW1 ([facility]) ciclopirox 10 MG/ML Medicated Shampoo 05/15/2020 12:00:00 AM EDT eCW1 ([facility]) alclometasone dipropionate 0.5 MG/ML Topical Cream 05/15/2020 12 :00:00 AM EDT eCW1 ([facility]) Doxycycline Monohydrate 50 MG Oral Capsule 05/15/2020 12:00:00 AM E DT eCW1 ([facility]) ciclopirox 10 MG/ML Medicated Shampoo 05/15/2020 12:00:00 AM EDT eCW1 ([facility]) alclometasone dipropionate 0.5 MG/ML Topical Cream 05/15/2020 12 :00:00 AM EDT eCW1 ([facility]) alclometasone dipropionate 0.5 MG/ML Topical Cream 05/15/2020 12 :00:00 AM EDT eCW1 ([facility]) Doxycycline Monohydrate 50 MG Oral Capsule 05/15/2020 12:00:00 AM E DT eCW1 ([facility]) ciclopirox 10 MG/ML Medicated Shampoo 05/15/2020 12:00:00 AM EDT eCW1 ([facility]) Desvenlafaxine Succinate ER 100 MG Oral Tablet Extended Release 24 Hour (PRISTIQ) 04/07/2020 12:00:00 AM EDT [facility] Docusate Sodium 100 MG Oral Capsule [DOK] 04/07/2020 12:00:00 AM ED [facility] Nystatin 100 UNT/MG Topical Powder 03/27/2020 12:00:00 AM [facility] Methocarbamol 750 MG Oral Tablet 06/09/2019 12:00:[address] [facility] Misc. Devices (DURABLE MEDICAL EQUIPMENT SEE SIG) [facility] 10/09/2018 12:00:00 AM [facility] Doxycycline Monohydrate 100 MG Oral Capsule 10/07/2018 12:00:00 AM [facility] 7 ACTUAT umeclidinium 0.0625 MG/ACTUAT Dry Powder Inha ler [Incruse] 09/24/2018 12:00:00 AM [facility] gabapentin 100 MG Oral Capsule 03/03/2018 12:00:00 AM [facility] maalox/lidocaine/diphenhydrAMINE (RADIATION MIXTURE) 1 :1:1 oral suspension 05/29/2017 12:00:00 AM [facility] Nystatin [id number] UNT/ML Topical Cream 09/27/2015 12:00:[address] [facility] Vitamin B 12 0.1 MG Oral Tablet [facility] Docusate Sodium 100 MG Oral Capsule [facility] Methocarbamol 750 MG Oral Tablet [facility] Ondansetron 4 MG Oral Tablet [facility] Albuterol Sulfate HFA 108 (90 Base) MCG/ ACT Inhalation Aerosol Solution (PROVENTIL HFA;VENTOLIN HFA) [facility] Ibuprofen 600 MG Oral Tablet [facility] Albuterol 0.83 MG/ML Inhalant Solution [facility] Hydrochlorothiazide 25 MG / Lisinopril 20 MG Oral Tablet [facility] formoterol fumarate 0.01 MG/ML Inhalant Solution [facility] Gemfibrozil 600 MG Oral Tablet [facility] Biotin 10 MG Oral Tablet [facility] Vitamin B 12 0.1 MG Oral Tablet [facility] POLYETHYLENE GLYCOL 3350 142 MG/ML Oral Solution [facility] 14 ACTUAT fluticasone furoate 0.1 MG/ACT UAT / vilanterol 0.025 MG/ACTUAT Dry Powder Inhaler [facility] Sumatriptan 100 MG Oral Tablet [facility] gabapentin 100 MG Oral Capsule [facility] Melatonin 3 MG Oral Tablet [facility] doxycycline hyclate 50 MG Oral Capsule [facility]
[2021-06-02] MEDS ORDERED: GI COCKTAIL 50ML BTL(HYOSCYAMINE/MAALOX/LIDOCAINE VISCOUS)(1:3:1) PO ONE (16:25)
--- OUTSIDE RECORDS SUMMARY | 2021-06-02 16:40 | CCD ---
Author Author [facility] Address Unknown Phone Unavailable Care Team Providers Care Production Recorder Name Role Phone Erica LAWSON MD Unavailable [...] E PADMAJA WAGNER Unavailable Unavailable LAWSON, E PDAMAJA WAGNER Unavailable Unavailable LAWSON, E PADMAJA WAGNER [...] EDWARD RPA Unavailable Unavailable BRYON, MEÑO LAVERN [employer]ATE SAFETY DIRECTOR-C Unavailable Unavailable BRYON, MEÑO LAVENR CORPORATE SAFETY DIRECTOR-C Unavailable Unavailable BRYON, MEÑO LAVERN CORPORATE SAFETY DIRECTOR-C Unavailable Unavailable BRYON, MEÑO LAVERN CORPORATE SAFETY DIRECTOR-C Unavailable Unavailable BRYON, MEÑO LAVERN CORPORATE SAFETY DIRECTOR-C Unavailable Unavailable BRYON, MEÑO LAVERN CORPORATE SAFETY DIRECTOR-C Unavailable Unavailable BRYONMEÑO LAVERN CORPORATE SAFETY DIRECTOR-C Unavailable Unavailable BRYON, MEÑO LAVERN CORPORATE SAFETY DIRECTOR-C Unavailable Unavailable BRYON, MEÑO LAVERN [employer]PORATE SAFETY DIRECTOR-C Unavailable Unavailable BRYON, MEÑO LAVERN CORPORATE SAFETY DIRECTOR-C Unavailable Unavailable BRYON, MEÑO LAVERN CORPORATE SAFETY DIRECTOR-C Unavailable Unavailable BRYON, MEÑO LAVERN CORPORATE SAFETY DIRECTOR-C Unavailable Unavailable BRYON, MEÑO LAVERN CORPORATE SAFETY DIRECTOR-C Unavailable Unavailable BRYON, MEÑO LAVERN CORPORATE SAFETY DIRECTOR-C Unavailable Unavailable BRYON, MEÑO LAVERN CORPORATE SAFETY DIRECTOR-C Unavailable Unavailable BRYON, MEÑO LAVERN [employer]PORATE SAFETY DIRECTOR-C Unavailable Unavailable BRYON, MEÑO LAVERN [employer]PORATE SAFETY DIRECTOR-C Unavailable Unavailable ANTECOL, Sofi GOODEN MD Unavailable [...] ANTECOL, Sofi GOODEN MD Unavailable Unavailable ANTECOL, Sfoi GOODEN MD Unavailable Unavailable ANTECOL, Sofi GOODEN MD Unavailable Unavailable ANTECOL, Sofi GOODEN MD Unavailable Unavailable ANTECOL, Sofi GOODEN MD Unavailable Unavailable ANTECOL, Sofi GOODEN MD Unavailable Unavailable ANTECOL, Sofi GOODEN MD Unavailable Unavailable ANTECOL, Sofi GOODEN MD Unavailable Unavailable ANTECOL, Sofi GOODEN MD Unavailable Unavailable ANTECOL, oSfi GOODEN MD Unavailable Unavailable ANTECOL, Sofi GOODEN [...] by Article 27-F of the [facility] Public Health law. If you continue you may have access to information: Regarding HIV / AIDS; Provided by facilities licensed or operated by the [facility] Office of Mental Health; or Provided by the [facility] Office for People With Developmental Disabilities. If such information is present, then the following [facility] mandated warning applies: This information has [...] law may result in a fine or chcf sentence or both. A general authorization for the release of medical or other information is NOT sufficient authorization for further disc losure. Allergies and Adverse Reactions Type Description Substance Reaction Status Data Source(s ) Naproxen, Dilentin, Tylenol, Seasonal, Codeine Naproxe n, Dilentin, Tylenol, Seasonal, Codeine Naproxen, Dilentin, Tylenol, Seasonal, Codeine active NETSMART ([facility]) Miscellaneous allergy Seasonal Seasonal PCC ([facility]) Drug allergy Tylenol Tylenol PCC ([facility]) Drug allergy Dilantin Dilantin PCC ([facility]) Drug allergy Naproxen Naproxen PCC ([facility]) Environmental Allergy ENVIRONMENTAL ENVIRONMENTAL Itching [facility] No Known Food Allergies No Known Food Allergies [facility] Propensity to adverse reactions DILANTIN DILANTIN [facility] Drug allergy CODEINE CODEINE [facility] Drug allergy NAPROXEN NAPROXEN [facility] Family History Family Member Name Family Member Gender Family Member Status Date o f Status Description Data Source(s) Unknown Condition [facility] Unknown Condition [facility] Unknown Condition [facility] Unknown Condition [facility] Unknown Condition [facility] Unknown Condition [facility] Unknown Condition [facility] Unknown Condition [facility] Unknown Condition [facility] Encounters Encounter Providers Location Date Indications Data Source(s ) Outpatient Attender: DEAN SIERRA MD 07/04/2021 12: 00:00 AM [facility] Outpatient Attender: SANTOS SHOOK MD 06/26/2021 12:00:0 0 AM [facility] Outpatient Attender: MADISON NICOLEOFFAttender: Madison shah 06/20/2021 12:00:00 AM [facility] Outpatient Referrer: MADISON MAHAJAN 05/31/2021 12:0 0:00 AM EDT 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 [address] 05/23/2021 12:00:00 AM EDT eCW1 (Critical access hospital) [place] [address] [place] [address] 05/10/2021 12:00:00 AM EDT eCW1 (Critical access hospital) Outpatient Attender: DEAN SIERRA MDReferrer : LETITIA HESTER MD [id number] 05/04/2021 12:00:00 AM EDT [facility] Outpatient Referrer: DEAN SIERRA MD 05/04/20 12:00:00 AM EDT Unspecified fracture of right talus, sequela [facility] Unspecified fracture of right talus, seq uela Outpatient Attender: SANTOS SHOOK MD 04/24/2021 12:00:0 0 AM EDT [facility] 04/18/2021 01:00:00 AM EDT - 021 12:15:40 PM EDT [facility]) Outpatient Referrer: DEAN SIERRA MD 03/23/20 12:00:00 AM EDT Primary osteoarthritis, right ankle and foot [facility] Primary osteoarthritis, right ankle and foot Outpatient Referrer: DEAN SIERRA MD 03/23/20 12:00:00 AM EDT Primary osteoarthritis, right ankle and foot [facility] Primary osteoarthritis, right ankle and foot Outpatient Attender: DEAN SIERRA MD [id number] 03/23/2021 12:00:00 AM [facility] Outpatient Attender: DEAN SIERRA MD 03/23/2021 12: 00:00 AM EDT [facility] Outpatient Attender: MADISON Velez erendira: Madison MahajanReferrer: MADISON MAHAJAN 03/07/2021 12:00:00 AM EDT Unspecified convulsio [facility] Unspecified convulsions Outpatient Attender: Madison MahajanAttender: MADISON SHAH [id number] 02/20/2021 12:00:00 AM EDT - 02/20/2021 10:04:38 AM EDT [facility] Outpatient Attender: DEAN SIERRA MDReferrer : LETITIA HESTER MD [id number] 02/14/2021 12:00:00 AM EDT [facility] Outpatient Attender: MADISON Velez erendira: Madison MahajanReferrer: MADISON MAHAJAN 02/14/2021 12:00:00 AM EDT [facility] Inpatient Attender: PADMAJA LAWSON MD 02/06 02:55:00 PM EDT - 04/17/2021 11:36:00 AM EDT [facility] ( [facility]) Patient discharged. 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 Outpatient Attender: Madison MahajanAttender: MADISON SHAH [id number] 01/30/2021 12:00:00 AM EDT - 01/30/2021 08:31:33 AM EDT [facility] Outpatient Attender: SOHAM LANGLEYOReferrer: DEAN FERREIRA MD [id number] 01/27/2021 12:00:00 AM EDT - 01/28/2021 12:00:00 AM EDT [facility] [place] [address] [address] 01/24/2021 12:00:00 AM EDT eCW1 (Critical access hospital) Outpatient Referrer: DEAN SIERRA MD 01/23/2021 12: 00:00 AM EDT [facility] Outpatient Attender: MADISYN CHU RPA 01/20 09:54:42 AM EDT - 01/20/2021 10:29:53 AM EDT [facility] ([facility] ) Outpatient Attender: DEAN SIERRA MDReferrer : LETITIA HESTER MD [id number] 01/17/2021 12:00:00 AM EDT [facility] Outpatient Referrer: DEAN SIERRA MD 01/18/20 12:00:00 AM EDT Primary osteoarthritis, right ankle and foot [facility] Primary osteoarthritis, right ankle and foot Outpatient Referrer: DEAN SIERRA MD 01/18/20 12:00:00 AM EDT Primary osteoarthritis, right ankle and foot [facility] Primary osteoarthritis, right ankle and foot [facility] [address] [address] 01/15/2021 12:00:00 AM EDT eCW1 (Critical access hospital) Outpatient Attender: SANTOS SHOOK MD [id number] 12:00:00 AM EDT - 01/09/2021 02:27:35 PM EDT [facility] [address] [address] 01/09/2021 12:00:00 AM EDT [facility] [place] [address] [address] 01/09/2021 12:00:00 AM EDT [facility] [place] [address] [address] 01/08/2021 12:00:00 AM EDT [facility]CW1 [facility]) [place] [address] [address] 01/03/2021 12:00:00 AM EDT [facility]CW1 [facility]) [place] [address] [address] 01/02/2021 12:00:00 AM EDT [facility]CW1 [facility]) [place] [address] [address] 12/27/2020 12:00:00 AM EDT [facility]CW1 [facility]) Outpatient Attender: SANTOS SHOOK MD [id number] 07/2020 12:00:00 AM EDT - 12/26/2020 01:54:16 PM EDT [facility] [place] [address] [address] 12/19/2020 12:00:00 AM EDT eCW1 [facility]) Outpatient Attender: LAVERN Lu/Yonathan/Chucho/Nik segovia 12/12/2020 12:45:00 PM EDT MEDENT ([facility]) [place] [address] [address] 12/11/2020 12:00:00 AM EDT eCW1 ([facility]) Unknown [address] [address] 12/06/2020 12:00:00 AM EDT eCW1 (Critical access hospital) [place] [address] [address] 12/05/2020 12:00:00 AM EDT eCW1 (Critical access hospital) Outpatient Attender: DEAN SIERRA MD 11/29/2020 12: 00:00 AM [facility] Outpatient Attender: SANTOS SHOOK MD [id number] 10/2020 12:00:00 AM EDT - 11/29/2020 12:00:00 AM [facility]ender: SANTOS SHOOK MD 11/28/2020 12:00:0 0 AM [facility] [place] [address] [address] 11/24/2020 12:00:00 AM EDT eCW1 (Critical access hospital) Office Visit Attender: ROBERT Lu/Yonathan/Chucho/Key indl 11/20/2020 08:30:00 AM EDT MED[facility] ([facility]) Unknown [address] [address] 11/15/2020 12:00:00 AM EDT eCW1 (Critical access hospital) [place] [address] [address] 11/13/2020 12:00:00 AM EDT eCW1 (Critical access hospital) Outpatient Attender: DEAN SIERRA MD 11/08/2020 12: 00:00 AM [facility] Outpatient Attender: BERKLEY OROPEZA MD Main Office 10/30/2020 01:30:00 PM EDT MEDENT ([facility]) Emergency Attender: MADALYN TANG EMERGENCY ROOM-ER 06:01:00 PM EDT - 10/24/2020 07:50:00 PM T [facility] Patient discharged. [place] [address] [address] 10/24/2020 12:00:00 AM EDT eCW1 ([facility]) Unknown [address] [address] 10/12/2020 12:00:00 AM EDT [facility]CW1 [facility]) [place] [address] [address] 10/06/2020 12:00:00 AM EST [facility]CW1 [facility]) [place] [address] [address] 10/05/2020 12:00:00 AM EST [facility] [place] [address] [address] 10/02/2020 12:00:00 AM EST [facility]CW1 [facility]) [place] [address] [address] 09/22/2020 12:00:00 AM EST [facility]CW1 [facility]) Unknown [address] [address] 09/22/2020 12:00:00 AM EST [facility]CW1 ([facility]) [place] [address] [address] 09/21/2020 12:00:00 AM EST [facility]CW1 ([facility]) [place] [address] [address] 09/19/2020 12:00:00 AM EST [facility]CW1 [facility]) Outpatient Attender: ROBERT Lu/Yonathan/Chucho/Re indl 09/13/2020 12:30:00 PM EST [facility] ([facility]) [place] [address] [address] 09/07/2020 12:00:00 AM EST eCW1 ([facility]) [place] [address] [address] 09/07/2020 12:00:00 AM EST [facility]CW1 ([facility] [place] [address] [address] 09/01/2020 12:00:00 AM EST [facility] [place] [address] [address] 08/28/2020 12:00:00 AM EST [facility]CW1 [facility] [place] [address] [address] 08/25/2020 12:00:00 AM EST [facility]CW1 [facility] Outpatient Attender: ROBERT Lu/Yonathan/Chucho/Re indl 08/23/2020 01:00:00 PM EST [facility] ([facility]) Outpatient Attender: LAVERN Lu/Yonathan/Chucho/R eindl 08/17/2020 12:15:00 PM EST [facility] ([facility] [place] [address] [address] 08/15/2020 12:00:00 AM EST [facility]CW1 [facility] [place] [address] [address] 08/11/2020 12:00:00 AM EST [facility]CW1 [facility] [place] [address] [address] 08/10/2020 12:00:00 AM EST [facility]CW1 [facility] [place] [address] [address] 08/03/2020 12:00:00 AM EST [facility]CW1 [facility] Outpatient Attender: MADISON MAHAJAN 07/17/2020 12:00:00 A [facility] Outpatient Attender: DEAN SIERRA MD [id number] 06/28/2020 12:00:00 AM EST Primary osteoarthritis, right ankle and foot [facility] Primary osteoarthritis, right ankle and foot Outpatient Attender: MADISON MAHAJAN 06/26/2020 12:00:00 A [facility] [place] [address] [address] 06/12/2020 12:00:00 AM EST [facility]CW1 ([facility]) Outpatient Attender: SANTOS SHOOK MD [id number] 04/2020 12:00:00 AM EST - 06/06/2020 02:43:30 PM EST Post-traumatic bulbous urethral stricture [facility] Post-traumatic bulbous urethral strictur e Outpatient Attender: MADISON MAHAJAN 06/05/2020 12:00:00 A M [facility] Outpatient Attender: Shannan Negrete MDConsultant: LETITIA HESTER MD 06/01/2020 01:00:00 PM EST - 06/01/2020 01:00:00 PM EST [facility] Outpatient Attender: MADISON MAHAJAN 05/24/2020 12:00:00 A M [facility] [place] [address] [address] 05/22/2020 12:00:00 AM EDT eCW1 ([facility]) Unknown [address] [address] 05/22/2020 12:00:00 AM EDT eCW1 ([facility]) [place] [address] [address] 05/18/2020 12:00:00 AM EDT eCW1 ([facility]) [place] [address] [address] 05/15/2020 12:00:00 AM EDT eCW1 ([facility]) Outpatient Attender: SANTOS SHOOK MD [id number] 12:00:00 AM EDT - 05/09/2020 02:16:06 PM [facility] Referrer: ADITYA TANG 04/26/2020 12:00:00 AM EDT Primary osteoarthritis, right ankle and foot [facility] Primary osteoarthritis, right ankle and foot Outpatient Referrer: ADITYA TANG 04/26/2020 12:00:00 AM EDT Primary osteoarthritis, right ankle and foot [facility] Primary osteoarthritis, right ankle and foot Outpatient Attender: ADITYA TANG [id number] 04/26/2020 12:00:00 AM EDT Primary osteoarthritis, right ankle and foot [facility] Primary osteoarthritis, right ankle and foot Outpatient Attender: Shannan Negrete MDConsultant: LETITIA HESTER MD 04/20/2020 02:36:00 PM EDT - 04/20/2020 02:36:00 PM EDT [facility] Outpatient Attender: LETITIA HESTER MDConsultant: LETITIA Madison MD 04/05/2020 10:11:00 AM EDT - 04/05/2020 10:11:00 AM EDT [facility] Outpatient Attender: ALESHIA GEORGES MDConsultant: LETITIA Madison MD 03/29/2020 01:51:00 PM EDT - 03/29/2020 01:51:00 PM EDT [facility] Outpatient Attender: LETITIA HESTER MDConsultant: LETITIA Madison MD 03/27/2020 12:49:00 PM EDT - 03/27/2020 12:49:00 PM EDT [facility] Emergency Attender: CLEO GRUBERConsultant: LETITIA Madison MD 03/22/2020 03:26:00 PM EDT - 03/22/2020 05:25:00 PM EDT [facility] Patient discharged. Emergency Attender: HITESH MELGAR MDConsultant: LETITIA HESTER MD 03/09/2020 05:46:00 PM EDT - 03/10/2020 12:45:00 AM EDT [facility] Patient discharged. Outpatient Attender: LETITIA HESTER MDConsultant: LETITIA Madison MD 02/23/2020 10:36:00 AM EDT - 02/23/2020 10:36:00 AM EDT [facility] Outpatient Attender: MANOJ ROCK MDConsultant: LETITIA HESTER MD 12/15/2019 11:32:18 AM EDT [facility] Immunizations Vaccine Date Status Description Data Source(s) Tdap 05/17/2021 02:19:00 PM EDT completed e CW1 ([facility]) influenza, recombinant, quadrIvalent,injectable, prese rvative free 05/17/2021 01:16:00 PM EDT completed eCW1 ([facility]) COVID-19 VACCINE Moderna 02/16/2021 12:00:00 AM EDT completed [facility]SIIS Vaccine Series Complete: NOThis Data was Submitted to [facility] Via [employer]. 207 12/29/2020 12:00:00 AM EDT completed <td I D="[id number]">Moderna SARS-CoV-2 Vaccine</td><td>12/29/2020</td><td></td> [facility] COVID-19 VACCINE Moderna 12/29/2020 12:00:00 AM EDT completed [facility]SIIS Vaccine Series Complete: NOThis Data was Submitted to [facility] Via [employer]. New in 2011. IIV4 06/01/2020 12:00:00 AM EST completed <t d ID="[id number]">Influenza Quad IM Pres Free (0.5 mL dose)</td><td>06/01/2020, 07/19/2019</td><td></td> [facility] Medications Medication Brand Name Start Date Product Form Dose Route Admi nistrative Instructions Pharmacy Instructions Status Indications Reaction Description Data Source(s) Ciprofloxacin 500 MG Oral Tablet Ciprofloxacin HCl 500 MG Ciprofloxacin HCl 500 MG 05/17/2021 12:00:00 AM EDT 1.0 {tablet} activ e Ciprofloxacin HCl 500 MG eCW1 ([facility]) Methocarbamol 750 MG Methocarbamol 04/18/2021 01:00:00 AM EDT 1.0 {tablet} completed NETSMART ([facility]) Keppra 500 MG Keppra 04/18/2021 01:00:00 AM EDT 1.0 {tablet} completed NETSMART ([facility]) AirDuo Digihaler 232-14 MCG/ACT AirDuo Digihaler 04/18/2021 01:00:00 AM EDT completed NETSMART ( [facility]) oxyCODONE HCl 5 MG oxyCODONE HCl 04/18/2021 01:00:00 AM EDT completed NETSMART ([facility]) [facility] Omeprazole 20 MG [facility] Omeprazole 04/18/2021 01:00:00 AM EDT completed NETSMART ([facility]) Montelukast Sodium 10 MG Montelukast Sodium 04/18/2021 01:00:00 AM EDT completed NETSMART ([facility]) Mirtazapine 15 MG Mirtazapine 04/18/2021 01:00:00 AM EDT completed NETSMART ([facility]) Ibuprofen 600 MG Ibuprofen 04/18/2021 01:00:00 AM EDT completed NETSMART ([facility]) Vitamin D-2 50,000 U(1.25 mg) Vitamin D-2 04/18/2021 01:00:00 AM EDT completed NETSMART ([facility]) Topiramate 200 MG Topiramate 04/18/2021 01:00:00 AM EDT completed NETSMART ([facility] ) Doxycycline Monohydrate 100 MG Doxycycline Monohydrate 04/18 01:00:00 AM EDT completed NETSMAR T ([facility]) Sucralfate 1 GM Sucralfate 04/18/2021 01:00:00 AM EDT completed NETSMART ([facility]) Triamcinolone Acetonide 0.1 % Triamcinolone Acetonide 2020 01:00:00 AM EDT completed NETSMAR T ([facility]) Trospium Chloride 20 MG Trospium Chloride 04/18/2021 01:00:00 AM EDT completed NETSMART ([facility]) Desvenlafaxine ER 100 MG Desvenlafaxine ER 04/18/2021 01:00:00 AM EDT completed NETSMART ([facility]) Claritin 10 MG Claritin 04/18/2021 01:00:00 AM EDT completed NETSMART ([facility]) Aspirin 325 MG Aspirin 04/18/2021 01:00:00 AM EDT completed NETSMART ([facility]) SM Pain Reliever 325 MG SM Pain Reliever 04/18/2021 01:00:00 AM EDT completed NETSMART ([facility]) POLYETHYLENE GLYCOL 3350 142 MG/ML Oral Solution Polyethylene Glycol 3350 17 GM Oral Packet (MIRALAX) Polyethylene Glycol 3350 17 GM Oral Packet (MIRALAX) 02/07/2021 12:00:00 AM EDT 17 g Oral active Take 1 packet by mouth daily for 3 daysPlease substitute bottle for packets, if packets are unavailable. [facility] Aspirin 325 MG Delayed Release Oral Tabl et Aspirin EC 325 MG Oral Tablet Delayed Release Aspirin EC 325 MG Oral Tablet Delayed Release 02/07/20 12:00:00 AM EDT 325 mg Oral active Take 1 t ablet by mouth daily Take with food, to help prevent blood clots [facility] Oxycodone Hydrochloride 5 MG Oral Tablet oxyCODONE HCl 5 MG Oral Tablet (ROXICODONE) oxyCODONE HCl 5 MG Oral Tablet (ROXICODONE) 02/06/2021 12:00:00 AM EDT mg Oral active Take 1-2 tablets by mouth every 6 (six) hours as needed (moderate to severe pain) for up to 7 days, Max Daily Dose: 40 mg [facility] sennosides, LONGTERM 8.6 MG Oral Tablet Senna 8.6 MG Oral T ablet Senna 8.6 MG Oral Tablet 02/06/2021 12:00:00 AM EDT 2 {tbl} Oral active Take 2 tablets by mouth daily as needed [facility] Methocarbamol 750 MG Oral Tablet Methocarbamol 750 MG Oral Tablet (ROBAXIN) Methocarbamol 750 MG Oral Tablet (ROBAXIN) 02/06/2021 12:00:00 AM EDT 750 mg Oral active Take 1 tablet by nehal th Two times daily as needed (pain) [facility] Docusate Sodium 100 MG Oral Capsule Docu sate Sodium 100 MG Oral Capsule (COLACE) Docusate Sodium 100 MG Oral Capsule (COLACE) 02/06/2021 12:00:00 AM EDT 100 mg Oral active Take 1 capsule by mouth Two Times Daily [facility] Docusate Sodium 100 MG Oral Capsule docusate sodium (C OLACE) capsule 100 mg docusate sodium (COLACE) capsule 100 mg 02/03/2021 09:00:00 PM EDT 100 mg Oral active 100 mg, Oral, 2 Times Daily, First dose on 02/03/21 at 2100, For 30 days [facility] Medication administered onsite POLYETHYLENE GLYCOL 3350 142 [...] due to potential increased risk for aspiration.
[facility] Medication administered onsite Magnesium Hydroxide 80 MG/ML [...] creatinine > 2 notify provider before administering.
[facility] Medication administered onsite 0.4 ML Enoxaparin sodium 100 MG/ML Prefi lled Syringe enoxaparin sodium (LOVENOX) injection 40 mg enoxaparin sodium (LOVENOX) injection 40 mg 02/01/2021 09:00:00 PM EDT 40 mg Subcutaneous active 40 mg, Subcutaneous, Every 12 hours Standard (2 times per day), First dose (after last modification) on Kelly 02/01/21 at 2100, For 30 doses [facility] Medication administered onsite 60 ACTUAT Budesonide 0.16 MG/ACTUAT / fo rmoterol fumarate 0.0045 MG/ACTUAT Metered Dose Inhaler budesonide-formoterol (SYMBICORT) 160-4.5 MCG/ACT inhaler 2 puff budesonide-formoterol (SYMBICORT) 160-4.5 MCG/ACT inha ler 2 puff 02/01/2021 08:00:00 PM EDT 2 {puff} Inhalation active 2 puff, Inhalation, 2 Times Daily, First dose on Kelly 02/01/21 at 2000, For 7 days
Shake well before using
[facility] Medication administered onsite Diphenhydramine Hydrochloride 25 MG Oral Capsule diphenhydrAMINE (BENADRYL) capsule 25 mg diphenhydrAMINE (BENADRYL) capsule 25 mg 01/31/2021 04 :10:44 PM EDT 25 mg Oral active 25 mg, O ral, Every 6 hours PRN, Itching, Starting on Fri01/31/21 at 1610, For 30 days [facility] Medication administered onsite Loratadine 10 MG Oral Tablet loratadine (CLARITIN) tab let 10 mg loratadine (CLARITIN) tablet 10 mg 01/31/2021 09:00:00 AM EDT 10 mg Oral active 10 mg, Oral, Daily Standard, First dose on Fri01/31/21 at 0900, For 30 days [facility] Medication administered onsite desvenlafaxine (PRISTIQ) 24 hr tablet 100 mg 72027-686-01 01/31/2021 09:00:00 AM EDT 100 mg Oral active 100 mg, Oral, Daily Standard, First dose on Fri01/31/21 at 0900, For 30 days
Do not crush or chew.
[facility] Medication administered onsite Mirtazapine 15 MG Oral Tablet mirtazapine (REMERON) ta blet 15 mg mirtazapine (REMERON) tablet 15 mg 01/31/2021 09:00:00 AM EDT 15 mg Oral active 15 mg, Oral, Daily Standard, First dose on Fri01/31/21 at 0900, For 30 days [facility] Medication administered onsite Vitamin B 12 0.1 MG Oral Tablet vitamin B-12 (CYANOCOB ALAMIN) tablet 50 mcg vitamin B-12 (CYANOCOBALAMIN) tablet 50 mcg 01/31/2021 09:00:00 AM EDT 50 ug Oral active 50 mcg, Oral, Daily Standard, First dose on Fri01/31/21 at 0900, For 30 days [facility] Medication administered onsite 0.4 ML Enoxaparin sodium 100 MG/ML Prefi lled Syringe enoxaparin sodium (LOVENOX) injection 40 mg enoxaparin sodium (LOVENOX) injection 40 mg 01/31/2021 09:00:00 AM EDT 40 mg Subcutaneous aborted 40 mg, Subcutaneous, Daily Standard, First dose on Fri01/31/21 at 0900, For 30 days [facility] Medication administered onsite Docusate Sodium 100 MG Oral Capsule docusate sodium (C OLACE) capsule 100 mg docusate sodium (COLACE) capsule 100 mg 01/31/2021 09:00:00 AM EDT 100 mg Oral aborted 100 mg, Oral, Daily Standard, First dose on Fri01/31/21 at 0900, For 30 days [facility] Medication administered onsite pantoprazole 40 MG Delayed Release Oral Tablet pantoprazole (PROTONIX) EC tablet 40 mg pantoprazole (PROTONIX) EC tablet 40 mg 01/31/2021 07:30:00 AM E DT 40 mg Oral active 40 mg, Ora l, Before Breakfast, First dose on Fri01/31/21 at 0730, For 30 doses
Do not crush or chew
[facility] Medication administered onsite montelukast 10 MG Oral Tablet montelukast (SINGULAIR) tablet 10 mg montelukast (SINGULAIR) tablet 10 mg 01/30/2021 10:00:00 PM EDT 10 mg Oral active 10 mg, Oral, Nightly, First dose on Fri01/30/21 at 2200, For 30 days [facility] Medication administered onsite Cefazolin 1000 MG Injection ceFAZolin (ANCEF) IVPB 1 g in dextrose 5 % (premix) ceFAZolin (ANCEF) IVPB 1 g in dextrose 5 % (premix) 01/30/2021 10:00:00 PM EDT 1 g Intravenous completed 1 g, Intra venous, Administer over 30 Minutes, Every 8 hours, First dose on Fri01/30/21 at 2200, For 1 day [facility] Medication administered onsite gabapentin 100 MG Oral Capsule gabapentin (NEURONTIN) capsule 100 mg gabapentin (NEURONTIN) capsule 100 mg 01/30/2021 10:00:00 PM EDT 100 mg Oral active 100 mg, Oral, Nightly, Indic ations: continue home med, First dose on Fri01/30/21 at 2200, For 30 days [facility] Medication administered onsite Doxycycline Monohydrate 100 MG Oral Caps ule doxycycline (MONODOX) capsule 100 mg doxycycline (MONODOX) capsule 100 mg 01/30/2021 09:00:00 PM EDT 100 mg Oral completed 100 mg, Oral, 2 Times Daily, First dose (after last modification) on Fri01/30/21 at 2100, For 7 days [facility] Medication administered onsite topiramate 100 MG Oral Tablet topiramate (TOPAMAX) tab let 200 mg topiramate (TOPAMAX) tablet 200 mg 01/30/2021 09:00:00 PM EDT 200 mg Oral active 200 mg, Oral, 2 Times Daily, First dose on Fri01/30/21 at 2100, For 30 doses [facility] Medication administered onsite Levetiracetam 500 MG Oral Tablet levETIRAcetam (KEPPRA ) tablet 500 mg levETIRAcetam (KEPPRA) tablet 500 mg 01/30/2021 09:00:00 PM EDT 500 m g Oral active 500 mg, Oral, 2 Times Daily, First dose on Fri01/30/21 at 2100, For 30 days [facility] Medication administered onsite trospium chloride 20 MG Oral Tablet trospium (SANCTURA ) tablet 20 mg trospium (SANCTURA) tablet 20 mg 01/30/2021 05:30:00 PM EDT 20 mg Oral active 20 mg, Oral, Two times daily before breakfast and dinner, First dose on Fri01/30/21 at 1730, For 30 doses [facility] Medication administered onsite Methocarbamol 500 MG Oral Tablet methocarbamol (ROBAXI N) tablet 750 mg methocarbamol (ROBAXIN) tablet 750 mg 01/30/2021 05:03:09 PM EDT 75 0 mg Oral active 750 mg, Oral, 2 Times Daily PRN, Muscle spasms, Starting on Fri01/30/21 at 1703, For 30 days [facility] Medication administered onsite Bisacodyl 10 MG Rectal Suppository bisacodyl (DULCOLAX ) suppository 10 mg bisacodyl (DULCOLAX) suppository 10 mg 01/30/2021 05:03:08 PM EDT 10 mg Rectal active 10 mg, Rectal, Every 72 hours PRN, Constipation, Constipation, Starting on Fri01/30/21 at 1703, For 30 days
Hold if patient has had a BM in the past 2 days.
[facility] Medication administered onsite Levetiracetam 15 MG/ML Injectable Soluti on levETIRAcetam (KEPPRA) 1,500 mg in sodium chloride 100 mL (15 mg/mL) infusion (premix) levETIRAcetam (KEPPRA) 1,500 mg in sodium chloride 100 mL (15 mg/mL) infusion (premix) 01/30/2021 11:45:00 AM EDT 1500 mg Intravenous completed 1, 500 mg, Intravenous, at 400 mL/hr, Once, On Fri01/30/21 at 1145, For 1 dose, Pre-op [facility] Medication administered onsite Acetaminophen 325 MG Oral Tablet acetaminophen (TYLENO L) tablet 975 mg acetaminophen (TYLENOL) tablet 975 mg 01/30/2021 11:00:00 AM EDT 97 5 mg Oral completed 975 mg, Oral, O nce, On Fri01/30/21 at 1100, For 1 dose
Maximum daily dose of acetaminophen is 3,000 mg from all sources in 24 hours.
Pre-op [facility] Medication administered onsite gabapentin 300 MG Oral Capsule gabapentin (NEURONTIN) capsule 300 mg gabapentin (NEURONTIN) capsule 300 mg 01/30/2021 11:00:00 AM EDT 300 mg Oral completed Postoperative Pain 300 mg, Oral, Once, Indications: Postoperative Pain, On Fri01/30/21 at 1100, For 1 dose, Pre-op [facility] Postoperative Pain Medication administered onsite Calcium Chloride 0.0014 MEQ/ML / Potassi um Chloride 0.004 MEQ/ML / Sodium Chloride 0.103 MEQ/ML / Sodium Lactate 0.028 MEQ/ML Injectable Solution lactated ringers infusion lactated ringers infusion 01/30/2021 11:00:00 AM EDT Intravenous active at 100 mL/hr, Intravenous, Continuous, Starting on Fri01/30/21 at 1100, For 30 days
Keep Vein Open. Use Wide Tubing.
[facility] Medication administered onsite [facility]. Devices (DURABLE MEDICAL EQUIPMENT SEE SIG) XX [facility] [id number] 01/18/2021 12:00:00 AM EDT aborted Use as directed. Shower bench Dx: M19.071 [facility]. Devices (DURABLE MEDICAL EQUIPMENT SEE SIG) XX [facility] 97 [id number] 01/17/2021 12:00:00 AM EDT aborted Use as directed. Roll A Bout Knee Scooter Dx: [facility] trospium chloride 20 MG Oral Tablet Tros pium Chloride 20 MG Oral Tablet (SANCTURA) Trospium Chloride 20 MG Oral Tablet (SANCTURA) 021 12:00:00 AM EDT 20 mg Oral active Take 1 t ablet by mouth Two times daily before breakfast and dinner [facility] 24 HR mirabegron 25 MG Extended Release Oral Tablet Mirabegron ER 25 MG Oral Tablet Extended Release 24 Hour (MYRBETRIQ) Mirabegron ER 25 MG Oral Tablet Extended Release 24 Hour (MYRBETRIQ) 01/09/2021 12:00:00 AM EDT 25 mg Oral active Take 1 tablet by mouth daily [facility] Fluticasone Propionate/Salmeterol Fluticasone Propionate/Benjamin meterol 12/12/2020 12:00:00 AM EDT RESPIRATORY active [facility] ([facility], ) Phenazopyridine hydrochloride 200 MG Del ayed Release Oral Tablet Phenazopyridine HCl 200 MG Oral Tablet (Pyridium) Phenazopyridine HCl 200 MG Oral Tablet (Pyridium) 11/28/2020 12:00:00 AM EDT 200 mg Oral active UTI symptoms Take 1 tablet by mouth Three times daily for 3 days [facility] UTI symptoms Nystatin 100 UNT/MG Topical Powder Nysta tin [id number] UNIT/GM External Powder (MYCOSTATIN) Nystatin [id number] UNIT/GM External Powder (MYCOSTATIN) 0 11/28/2020 12:00:00 AM EDT aborted UTI symptoms Apply to area under abdominal folds twice daily [facility] UTI symptoms Sumatriptan 100 MG Oral Tablet [Imitrex] Imitrex 10/29/2020 12:00: 00 AM EDT ORAL active [facility] ([facility]) Biotin 1 MG Oral Capsule Biotin 10/29/2020 12:00:00 AM EDT ORAL active [facility] 24 HR Desvenlafaxine 50 MG Extended Release Oral Tablet [Lilliam stiq] Pristiq 10/29/2020 12:00:00 AM EDT ORAL active [facility] ([facility]) 7 ACTUAT umeclidinium 0.0625 MG/ACTUAT Dry Powder Inha ler [Incruse] Incruse Ellipta 10/29/2020 12:00:00 AM EDT RESPIRATORY active [facility] ([facility]) ciclopirox 80 MG/ML Topical Solution Ciclopirox 10/29/2020 12:00:00 A M EDT active [facility] ([facility]) Vitamin B 12 0.1 MG Oral Tablet Vitamin B12 10/29/2020 12:00:00 AM EDT ORAL active [facility] ([facility]) Ondansetron 4 MG Oral Tablet [Zofran] Zofran 10/29/2020 12:00:00 AM EDT active [facility] ([facility]) Omeprazole 20 MG Delayed Release Oral Tablet [Prilosec] Pril osec OTC 10/29/2020 12:00:00 AM EDT ORAL active M EDENT ([facility]) topiramate 200 MG Oral Tablet [Topamax] Topamax 10/29/2020 12:00:0 0 AM EDT ORAL active [facility] ([facility]) montelukast 10 MG Oral Tablet Montelukast Sodium 10/29/2020 12:00:00 AM EDT ORAL active [facility] ([facility]) cetirizine hydrochloride 10 MG Oral Tablet Cetirizine HCL 10/29/2020 12:00:00 AM EDT ORAL active [facility] ([facility]) Levetiracetam 500 MG Oral Tablet [Keppra] Keppra 10/29/2020 12:00 :00 AM EDT ORAL active [facility] ([facility]) Sucralfate 1000 MG Oral Tablet [Carafate] Carafate 10/29/2020 1 2:00:00 AM EDT ORAL active [facility] ([facility]) POLYETHYLENE GLYCOL 3350 142 MG/ML Oral Solution [Miralax] M iralax 10/29/2020 12:00:00 AM EDT ORAL active M EDENT ([facility]) Acetaminophen 325 MG Oral Tablet [Tylenol] Tylenol 10/29/2020 12:00:00 AM EDT ORAL active [facility] ([facility]) Ergocalciferol 73639 UNT Oral Capsule Vitamin D (Ergocalcife rol) 10/29/2020 12:00:00 AM EDT ORAL active M EDENT ([facility]) Albuterol 0.83 MG/ML Inhalant Solution Albuterol Sulfate 0 10/29/2020 12:00:00 AM EDT active [facility] ([facility]) Nystatin 021965 UNT/ML Topical Cream Nystatin 10/29/2020 12:00:00 AM EDT active [facility] ([facility]) Acetaminophen 325 MG Oral Tablet [Tylenol] Tylenol 325 MG Ty lenol 325 MG 09/23/2020 12:00:00 AM EST 1.0 {tablet_as_needed} active Tylenol 325 MG eCW1 ([facility]) MiraLax Mix-In Ruth 17 GM MiraLax Mix-In Ruth 17 09/23/2020 12:00: 00 AM EST 1.0 {packet_mixed_with_8_ounces_of_fluid} active MiraLax Mix-In Ruth 17 GM eCW1 ([facility]) MiraLax Mix-In Ruth 17 GM MiraLax Mix-In Ruth 17 09/23/2020 12:00: 00 AM EST 1.0 {packet_mixed_with_8_ounces_of_fluid} active MiraLax Mix-In Ruth 17 GM eCW1 ([facility]) Acetaminophen 325 MG Oral Tablet [Tylenol] Tylenol 325 MG Ty lenol 325 MG 09/23/2020 12:00:00 AM EST 1.0 {tablet_as_needed} active Tylenol 325 MG eCW1 ([facility]) Acetaminophen 325 MG Oral Tablet [Tylenol] Tylenol 325 MG Ty lenol 325 MG 09/23/2020 12:00:00 AM EST 1.0 {tablet_as_needed} active Tylenol 325 MG eCW1 ([facility]) Acetaminophen 325 MG Oral Tablet [Tylenol] Tylenol 325 MG Ty lenol 325 MG 09/23/2020 12:00:00 AM EST 1.0 {tablet_as_needed} active Tylenol 325 MG eCW1 ([facility]) MiraLax Mix-In Ruth 17 GM MiraLax Mix-In Ruth 17 GM 09/23/2020 12:00: 00 AM EST 1.0 {packet_mixed_with_8_ounces_of_fluid} active MiraLax Mix-In Ruth 17 GM eCW1 ([facility]) Acetaminophen 325 MG Oral Tablet [Tylenol] Tylenol 325 MG Ty lenol 325 MG 09/23/2020 12:00:00 AM EST 1.0 {tablet_as_needed} active Tylenol 325 MG eCW1 ([facility]) MiraLax Mix-In Ruth 17 GM MiraLax Mix-In Ruth 17 09/23/2020 12:00: 00 AM EST 1.0 {packet_mixed_with_8_ounces_of_fluid} active MiraLax Mix-In Ruth 17 GM eCW1 ([facility]) Acetaminophen 325 MG Oral Tablet [Tylenol] Tylenol 325 MG Ty lenol 325 MG 09/23/2020 12:00:00 AM EST 1.0 {tablet_as_needed} active Tylenol 325 MG eCW1 ([facility]) Acetaminophen 325 MG Oral Tablet [Tylenol] Tylenol 325 MG Ty lenol 325 MG 09/23/2020 12:00:00 AM EST 1.0 {tablet_as_needed} active Tylenol 325 MG eCW1 ([facility]) MiraLax Mix-In Ruth 17 GM MiraLax Mix-In Ruth 17 09/23/2020 12:00: 00 AM EST 1.0 {packet_mixed_with_8_ounces_of_fluid} active MiraLax Mix-In Ruth 17 GM eCW1 ([facility]) Acetaminophen 325 MG Oral Tablet [Tylenol] Tylenol 325 MG Ty lenol 325 MG 09/23/2020 12:00:00 AM EST 1.0 {tablet_as_needed} active Tylenol 325 MG eCW1 ([facility]) Acetaminophen 325 MG Oral Tablet [Tylenol] Tylenol 325 MG Ty lenol 325 MG 09/23/2020 12:00:00 AM EST 1.0 {tablet_as_needed} active Tylenol 325 MG eCW1 ([facility]) Acetaminophen 325 MG Oral Tablet [Tylenol] Tylenol 325 MG Ty lenol 325 MG 09/23/2020 12:00:00 AM EST 1.0 {tablet_as_needed} active Tylenol 325 MG eCW1 ([facility]) MiraLax Mix-In Ruth 17 GM MiraLax Mix-In Ruth 17 09/23/2020 12:00: 00 AM EST 1.0 {packet_mixed_with_8_ounces_of_fluid} active [facility]iraLax [facility]In Ruth [facility] MiraLax Mix-In Ruth 17 GM MiraLax Mix-In Ruth 17 09/23/2020 12:00: 00 AM EST 1.0 {packet_mixed_with_8_ounces_of_fluid} active MiraLax Mix-In Ruth 17 GM eCW1 ([facility]) Acetaminophen 325 MG Oral Tablet [Tylenol] Tylenol 325 MG Ty lenol 325 MG 09/23/2020 12:00:00 AM EST 1.0 {tablet_as_needed} active Tylenol 325 MG eCW1 ([facility]) MiraLax Mix-In Ruth 17 GM MiraLax Mix-In Ruth 17 09/23/2020 12:00: 00 AM EST 1.0 {packet_mixed_with_8_ounces_of_fluid} active MiraLax Mix-In Ruth 17 [facility]) MiraLax Mix-In Ruth 17 GM MiraLax Mix-In Ruth 17 09/23/2020 12:00: 00 AM EST 1.0 {packet_mixed_with_8_ounces_of_fluid} active MiraLax Mix-In Ruth 17 [facility]) MiraLax Mix-In Ruth 17 GM MiraLax Mix-In Ruth 17 09/23/2020 12:00: 00 AM EST 1.0 {packet_mixed_with_8_ounces_of_fluid} active MiraLax Mix-In Ruth 17 GM W1 ([facility]) MiraLax Mix-In Ruth 17 GM MiraLax Mix-In Ruth 17 09/23/2020 12:00: 00 AM EST 1.0 {packet_mixed_with_8_ounces_of_fluid} active MiraLax Mix-In Ruth 17 GM eCW1 ([facility]) Acetaminophen 325 MG Oral Tablet [Tylenol] Tylenol 325 MG Ty lenol 325 MG 09/23/2020 12:00:00 AM EST 1.0 {tablet_as_needed} active Tylenol 325 MG eCW1 ([facility]) Acetaminophen 325 MG Oral Tablet [Tylenol] Tylenol 325 MG Ty lenol 325 MG 09/23/2020 12:00:00 AM EST 1.0 {tablet_as_needed} active Tylenol 325 MG eCW1 ([facility]) MiraLax Mix-In Ruth 17 GM MiraLax Mix-In Ruth 17 GM 09/23/2020 12:00: 00 AM EST 1.0 {packet_mixed_with_8_ounces_of_fluid} active MiraLax Mix-In Ruth 17 GM eCW1 ([facility]) MiraLax Mix-In Ruth 17 GM MiraLax Mix-In Ruth 17 09/23/2020 12:00: 00 AM EST 1.0 {packet_mixed_with_8_ounces_of_fluid} active MiraLax Mix-In Ruth 17 GM eCW1 ([facility]) MiraLax Mix-In Ruth 17 GM MiraLax Mix-In Ruth 17 09/23/2020 12:00: 00 AM EST 1.0 {packet_mixed_with_8_ounces_of_fluid} active eCW1 ([facility]) MiraLax Mix-In Ruth 17 GM MiraLax Mix-In Ruth 17 09/23/2020 12:00: 00 AM EST 1.0 {packet_mixed_with_8_ounces_of_fluid} active MiraLax Mix-In Ruth 17 GM eCW1 ([facility]) MiraLax Mix-In Ruth 17 GM MiraLax Mix-In Ruth 17 GM 09/23/2020 12:00: 00 AM EST 1.0 {packet_mixed_with_8_ounces_of_fluid} active MiraLax Mix-In Ruth 17 GM eCW1 ([facility]) MiraLax Mix-In Ruth 17 GM MiraLax Mix-In Ruth 17 GM 09/23/2020 12:00: 00 AM EST 1.0 {packet_mixed_with_8_ounces_of_fluid} active MiraLax Mix-In Ruth 17 GM eCW1 ([facility]) MiraLax Mix-In Ruth 17 GM MiraLax Mix-In Ruth 17 GM 09/23/2020 12:00: 00 AM EST 1.0 {packet_mixed_with_8_ounces_of_fluid} active MiraLax Mix-In Ruth 17 GM eCW1 ([facility]) Acetaminophen 325 MG Oral Tablet [Tylenol] Tylenol 325 MG Ty lenol 325 MG 09/23/2020 12:00:00 AM EST 1.0 {tablet_as_needed} active Tylenol 325 MG W1 ([facility]) MiraLax Mix-In Ruth 17 GM MiraLax Mix-In Ruth 17 GM 09/23/2020 12:00: 00 AM EST 1.0 {packet_mixed_with_8_ounces_of_fluid} active MiraLax Mix-In Ruth 17 GM eCW1 ([facility]) Acetaminophen 325 MG Oral Tablet [Tylenol] Tylenol 325 MG Ty lenol 325 MG 09/23/2020 12:00:00 AM EST 1.0 {tablet_as_needed} active Tylenol 325 MG [facility] ([facility]) MiraLax Mix-In Ruth 17 GM MiraLax Mix-In Ruth 17 GM 09/23/2020 12:00: 00 AM EST 1.0 {packet_mixed_with_8_ounces_of_fluid} active MiraLax Mix-In Ruth 17 GM eCW1 ([facility]) Acetaminophen 325 MG Oral Tablet [Tylenol] Tylenol 325 MG Ty lenol 325 MG 09/23/2020 12:00:00 AM EST 1.0 {tablet_as_needed} ac tive eCW1 ([facility]) MiraLax Mix-In Ruth 17 GM MiraLax Mix-In Ruth 17 GM 09/23/2020 12:00: 00 AM EST 1.0 {packet_mixed_with_8_ounces_of_fluid} active MiraLax Mix-In Ruth 17 GM eCW1 ([facility]) Acetaminophen 325 MG Oral Tablet [Tylenol] Tylenol 325 MG Ty lenol 325 MG 09/23/2020 12:00:00 AM EST 1.0 {tablet_as_needed} active Tylenol 325 MG eCW1 ([facility]) Acetaminophen 325 MG Oral Tablet [Tylenol] Tylenol 325 MG Ty lenol 325 MG 09/23/2020 12:00:00 AM EST 1.0 {tablet_as_needed} active Tylenol 325 MG W1 ([facility]) MiraLax Mix-In Ruth 17 GM MiraLax Mix-In Ruth 17 09/23/2020 12:00: 00 AM EST 1.0 {packet_mixed_with_8_ounces_of_fluid} active MiraLax Mix-In Ruth 17 eCW1 ([facility]) MiraLax Mix-In Ruth 17 MiraLax Mix-In Ruth 17 09/23/2020 12:00: 00 AM EST 1.0 {packet_mixed_with_8_ounces_of_fluid} active MiraLax Mix-In Ruth 17 GM eCW1 ([facility]) Acetaminophen 325 MG Oral Tablet [Tylenol] Tylenol 325 MG Ty lenol 325 MG 09/23/2020 12:00:00 AM EST 1.0 {tablet_as_needed} active Tylenol 325 MG W ([facility]) Acetaminophen 325 MG Oral Tablet [Tylenol] Tylenol 325 MG Ty lenol 325 MG 09/23/2020 12:00:00 AM EST 1.0 {tablet_as_needed} active Tylenol 325 MG W1 ([facility]) Acetaminophen 325 MG Oral Tablet [Tylenol] Tylenol 325 MG Ty lenol 325 MG 09/23/2020 12:00:00 AM EST 1.0 {tablet_as_needed} active Tylenol 325 MG W1 ([facility]) MiraLax Mix-In Ruth 17 GM MiraLax Mix-In Ruth 17 09/23/2020 12:00: 00 AM EST 1.0 {packet_mixed_with_8_ounces_of_fluid} active MiraLax Mix-In Ruth 17 GM eCW1 ([facility]) MiraLax Mix-In Ruth 17 GM MiraLax Mix-In Ruth 17 GM 09/23/2020 12:00: 00 AM EST 1.0 {packet_mixed_with_8_ounces_of_fluid} active MiraLax Mix-In Ruth 17 GM eCW1 ([facility]) Acetaminophen 325 MG Oral Tablet [Tylenol] Tylenol 325 MG Ty lenol 325 MG 09/23/2020 12:00:00 AM EST 1.0 {tablet_as_needed} active Tylenol 325 MG eCW1 ([facility]) MiraLax Mix-In Ruth 17 GM MiraLax Mix-In Ruth 17 GM 09/23/2020 12:00: 00 AM EST 1.0 {packet_mixed_with_8_ounces_of_fluid} active MiraLax Mix-In Ruth 17 GM eCW1 ([facility]) Acetaminophen 325 MG Oral Tablet [Tylenol] Tylenol 325 MG Ty lenol 325 MG 09/23/2020 12:00:00 AM EST 1.0 {tablet_as_needed} active Tylenol 325 MG W1 ([facility]) MiraLax Mix-In Ruth 17 GM MiraLax Mix-In Ruth 17 GM 09/23/2020 12:00: 00 AM EST 1.0 {packet_mixed_with_8_ounces_of_fluid} active MiraLax Mix-In Ruth 17 GM eCW1 ([facility]) Acetaminophen 325 MG Oral Tablet [Tylenol] Tylenol 325 MG Ty lenol 325 MG 09/23/2020 12:00:00 AM EST 1.0 {tablet_as_needed} active Tylenol 325 MG eCW1 ([facility]) Acetaminophen 325 MG Oral Tablet [Tylenol] Tylenol 325 MG Ty lenol 325 MG 09/23/2020 12:00:00 AM EST 1.0 {tablet_as_needed} active Tylenol 325 MG eCW1 ([facility]) Acetaminophen 325 MG Oral Tablet [Tylenol] Tylenol 325 MG Ty lenol 325 MG 09/23/2020 12:00:00 AM EST 1.0 {tablet_as_needed} active Tylenol 325 MG eCW1 ([facility]) MiraLax Mix-In Ruth 17 GM MiraLax Mix-In Ruth 17 GM 09/23/2020 12:00: 00 AM EST 1.0 {packet_mixed_with_8_ounces_of_fluid} active MiraLax Mix-In Ruth 17 GM eCW1 ([facility]) Acetaminophen 325 MG Oral Tablet [Tylenol] Tylenol 325 MG Ty lenol 325 MG 09/23/2020 12:00:00 AM EST 1.0 {tablet_as_needed} active Tylenol 325 MG eCW1 ([facility]) Acetaminophen 325 MG Oral Tablet [Tylenol] Tylenol 325 MG Ty lenol 325 MG 09/23/2020 12:00:00 AM EST 1.0 {tablet_as_needed} active Tylenol 325 MG eCW1 ([facility]) [facility]. Devices (DURABLE MEDICAL EQUIPMENT SEE SIG) XX [facility] 97 [id number] 06/28/2020 12:00:00 AM EST aborted Use as directed. Roll A Bout Knee Scooter Dx: [facility] Clindamycin 0.01 MG/MG Topical Gel Clindamycin Phospha te 1 % Clindamycin Phosphate 1 % 06/12/2020 12:00:00 AM EST 1.0 {application} active Clindamycin Phosphate 1 % eCW1 ([facility]) lidocaine (XYLOCAINE) 2 % urojet 20 mL [id number] 0 01:30:00 PM EST 20 mL Urethral completed 20 mL, Urethr al, Once, Fri06/06/20 at 1330, For 1 dose [facility] Medication administered onsite Cephalexin 500 MG Oral Capsule cephALEXin (KEFLEX) cap gt 500 mg cephALEXin (KEFLEX) capsule 500 mg 06/06/2020 01:30:00 PM EST 500 mg Oral completed 500 mg, Oral, Once, Fri06/06/20 at 1330 , For 1 dose [facility] Medication administered onsite ciclopirox 10 MG/ML Medicated Shampoo Ciclopirox 1 % Ciclopi oneil 1 % 05/15/2020 12:00:00 AM EDT 1.0 {application} active Ciclopirox 1 % eCW1 ([facility]) Doxycycline Monohydrate 50 MG Oral Capsule Doxycycline Monoh ydrate 50 MG 05/15/2020 12:00:00 AM EDT 1.0 {capsule} active Doxycycline Monohydrate 50 MG eCW1 ([facility]) Doxycycline Monohydrate 50 MG Oral Capsule Doxycycline Monoh ydrate 50 MG 05/15/2020 12:00:00 AM EDT 1.0 {capsule} active Doxycycline Monohydrate 50 MG eCW1 ([facility]) alclometasone dipropionate 0.5 MG/ML Top ical Cream Alclometasone Dipropionate 0.05 % Alclometasone Dipropionate 0.05 % 05/15/2020 12:00:00 AM EDT 1.0 {application} active Alclometasone Dipr opionate 0.05 % eCW1 ([facility]) Doxycycline Monohydrate 50 MG Oral Capsule Doxycycline Monoh ydrate 50 MG 05/15/2020 12:00:00 AM EDT 1.0 {capsule} active Doxycycline Monohydrate 50 MG eCW1 ([facility]) alclometasone dipropionate 0.5 MG/ML Top ical Cream Alclometasone Dipropionate 0.05 % Alclometasone Dipropionate 0.05 % 05/15/2020 12:00:00 AM EDT 1.0 {application} active Alclometasone Dipr opionate 0.05 % eCW1 ([facility]) ciclopirox 10 MG/ML Medicated Shampoo Ciclopirox 1 % Ciclopi oneil 1 % 05/15/2020 12:00:00 AM EDT 1.0 {application} active Ciclopirox 1 % eCW1 ([facility]) ciclopirox 10 MG/ML Medicated Shampoo Ciclopirox 1 % Ciclopi oneil 1 % 05/15/2020 12:00:00 AM EDT 1.0 {application} active Ciclopirox 1 % eCW1 ([facility]) alclometasone dipropionate 0.5 MG/ML Top ical Cream Alclometasone Dipropionate 0.05 % Alclometasone Dipropionate 0.05 % 05/15/2020 12:00:00 AM EDT 1.0 {application} active Alclometasone Dipr opionate 0.05 % eCW1 ([facility]) ciclopirox 10 MG/ML Medicated Shampoo Ciclopirox 1 % Ciclopi oneil 1 % 05/15/2020 12:00:00 AM EDT 1.0 {application} active Ciclopirox 1 % eCW1 ([facility]) alclometasone dipropionate 0.5 MG/ML Top ical Cream Alclometasone Dipropionate 0.05 % Alclometasone Dipropionate 0.05 % 05/15/2020 12:00:00 AM EDT 1.0 {application} active Alclometasone Dipr opionate 0.05 % eCW1 ([facility]) Doxycycline Monohydrate 50 MG Oral Capsule Doxycycline Monoh ydrate 50 MG 05/15/2020 12:00:00 AM EDT 1.0 {capsule} active Doxycycline Monohydrate 50 MG eCW1 ([facility]) Docusate Sodium 100 MG Oral Capsule [DOK] DOK 100 MG O ral Capsule DOK 100 MG Oral Capsule 04/07/2020 12:00:00 AM EDT 100 mg Oral abort ed Take 100 mg by mouth daily [facility] Desvenlafaxine Succinate ER 100 MG Oral Tablet Extended Release 24 Hour (PRISTIQ) 2406-3892-83 04/07/2020 12:00:00 AM EDT 100 mg Oral active Take 100 mg by mouth daily [facility] Nystatin 100 UNT/MG Topical Powder Nysta tin [id number] UNIT/GM External Powder (MYCOSTATIN) Nystatin [id number] UNIT/GM External Powder (MYCOSTATIN) 0 03/27/2020 12:00:00 AM EDT aborted APPLY TO AFFECTED AREA S TWO TIMES A DAY ABDOMINAL FOLDS [facility] Methocarbamol 750 MG Oral Tablet Methocarbamol 750 MG Oral Tablet (ROBAXIN) Methocarbamol 750 MG Oral Tablet (ROBAXIN) 06/09/2019 12:00:00 AM EST aborted TAKE ONE TABLET BY MOUTH FOUR TI MES A DAY [facility]. Devices (DURABLE MEDICAL EQUIPMENT SEE SIG) [facility] [place] [id number] 10/09/2018 12:00:00 AM EDT aborted Use as directed. Rolling walker with seat Dx: Right ankle arthritis [facility] Doxycycline Monohydrate 100 MG Oral Caps ule doxycycline (MONODOX) 100 MG capsule doxycycline (MONODOX) 100 MG capsule 10/07/2018 12:00:00 AM EDT 100 mg Oral aborted Take 100 mg by mouth Two Times Daily [facility] 7 ACTUAT umeclidinium 0.0625 MG/ACTUAT D ry Powder Inhaler [Incruse] INCRUSE ELLIPTA 62.5 MCG/INH AEPB INCRUSE ELLIPTA 62.5 MCG/INH AEPB 09/24/2018 12:00:00 AM EST aborted INHALE 1 PUFF ON CE DAILY [facility] gabapentin 100 MG Oral Capsule gabapentin (NEURONTIN) 100 MG capsule gabapentin (NEURONTIN) 100 MG capsule 03/03/2018 12:00:00 AM EDT 100 mg Oral aborted Take 100 mg by mouth Daily [facility] maalox/lidocaine/diphenhydrAMINE (RADIATION MIXTURE) 1:1:1 o ral suspension 05/29/2017 12:00:00 AM EDT 10 mL Swish & Spit aborted Swish and spit 10 mLs every 2 (two) hours as needed (For Mouth Pain)Pharmacy compound: Maalox, lidocaine viscous 2 %, Benadryl 12.5 mg/5 mL [facility] Nystatin 143018 UNT/ML Topical Cream nystatin (MYCOSTA TIN) cream nystatin (MYCOSTATIN) cream 09/27/2015 12:00:00 AM EST aborted Rash Use bid to affected area [facility] Rash Biotin 10 MG Oral Tablet Biotin 45572 MCG TABS Biotin 70475 MCG TAB S 99543 ug Oral aborted Take 10,000 mcg by mouth daily [facility] Melatonin 3 MG Oral Tablet melatonin 3 MG tablet melatonin 3 MG table t 5 mg Oral aborted Take 5 mg by m outh nightly Indications: Pt takes two tabs nightly [facility] doxycycline hyclate 50 MG Oral Capsule doxycycline ( BRAMYCIN) 50 MG capsule doxycycline (VIBRAMYCIN) 50 MG capsule 100 mg Oral aborted Take 100 mg by mouth every morning [facility] Vitamin B 12 0.1 MG Oral Tablet vitamin B-12 (CYANOCOB ALAMIN) 100 MCG tablet vitamin B-12 (CYANOCOBALAMIN) 100 MCG tablet 50 ug Oral aborted Take 50 mcg by mouth daily [facility] Ibuprofen 600 MG Oral Tablet ibuprofen (ADVIL,MOTRIN) 600 MG tablet ibuprofen (ADVIL,MOTRIN) 600 MG tablet 600 mg Oral aborted Take 600 mg by mouth Three times daily as needed for Pain [facility] POLYETHYLENE GLYCOL 3350 142 MG/ML Oral Solution polyethylene glycol (MIRALAX) packet polyethylene glycol (MIRALAX) packet 17 g Oral aborted Take 17 g by mouth Two Times Daily [facility] Albuterol 0.83 MG/ML Inhalant Solution a lbuterol (PROVENTIL) (2.5 MG/3ML) 0.083% nebulizer solution albuterol (PROVENTIL) (2.5 MG/3ML) 0.083 % nebulizer solution 2.5 mg Nebulization aborted Jewel e 2.5 mg by nebulization every 6 (six) hours as needed for Wheezing. [facility] Sumatriptan 100 MG Oral Tablet sumatriptan (IMITREX) 1 00 MG tablet sumatriptan (IMITREX) 100 MG tablet 100 mg Oral aborted Take 100 mg by mouth as needed for Migraine. [facility] Vitamin B 12 0.1 MG Oral Tablet Vitamin B-12 100 MCG Oral Tablet (CYANOCOBALAMIN) Vitamin B-12 100 MCG Oral Tablet (CYANOCOBALAMIN) 50 ug Oral aborted Take 50 mcg by mouth daily [facility] Methocarbamol 750 MG Oral Tablet Methocarbamol 750 MG Oral Tablet (ROBAXIN) Methocarbamol 750 MG Oral Tablet (ROBAXIN) 750 mg Oral aborted Take 750 mg by mouth Two times daily as needed [facility] Docusate Sodium 100 MG Oral Capsule Docu sate Sodium 100 MG Oral Capsule (COLACE) Docusate Sodium 100 MG Oral Capsule (COLACE) 100 mg Oral aborted Take 100 mg by mouth daily [facility] 14 ACTUAT fluticasone furoate 0.1 MG/ACT UAT / vilanterol 0.025 MG/ACTUAT Dry Powder Inhaler Fluticasone Furoate-Vilanterol (BREO ELLIPTA) 100-25 MCG/INH AEPB Fluticasone Furoate-Vilanterol (BREO ELLIPTA) 100-25 MCG/INH AEPB 1 {puff} Inhalation aborted Inhale 1 puff into the lungs daily. [facility] gabapentin 100 MG Oral Capsule Gabapentin 100 MG Oral Capsule (NEURONTIN) Gabapentin 100 MG Oral Capsule (NEURONTIN) 100 mg Oral aborted Take 100 mg by mouth nightly [facility] Gemfibrozil 600 MG Oral Tablet Gemfibrozil 600 MG Oral Tablet (LOPID) Gemfibrozil 600 MG Oral Tablet (LOPID) 600 mg Oral aborted Take 600 mg by mouth [facility] Hydrochlorothiazide 25 MG / Lisinopril 2 0 MG Oral Tablet Lisinopril- hydroCHLOROthiazide 20-25 MG Oral Tablet (ZESTORETIC) Lisinopril- hydroCHLOROthiazide 20-25 MG Oral Tablet (ZESTORETIC) 1 {tbl } Oral aborted Take 1 tablet by mouth [facility] Ondansetron 4 MG Oral Tablet Ondansetron HCl 4 MG Oral Tablet (Zofran) Ondansetron HCl 4 MG Oral Tablet (Zofran) 4 mg Oral aborted Take 4 mg by mouth every 8 (eight) hours as needed [facility] formoterol fumarate 0.01 MG/ML Inhalant Solution Formoterol Fumarate 20 MCG/2ML Inhalation Nebulization Solution (PERFOROMIST) Formoterol Fumarate 20 MCG/2ML Inhalation Nebulization Solution (PERFOROMIST) 20 ug aborted 20 mcg [facility] Albuterol Sulfate HFA 108 (90 Base) MCG/ ACT Inhalation Aerosol Solution (PROVENTIL HFA;VENTOLIN HFA) 6741-6515-23 2 {puff} Inhalation aborted Inhale 2 puffs into the lungs every 4 (four) hours as needed [facility] Insurance Providers Payer name Policy type / Coverage type Policy ID Covered green party ID Covered green party's relationship to saavedra Policy Saavedra Plan Information [facility] [id number] Patient [id number] [facility] PLUS [facility] COMMUNITY PLAN [id number] SELF [id number] [place] Medigap Part B [id number] Family Dependent [id number] SELF PAY UNAVAILABLE SELF UNAVAILA BLE BLUE CHOICE OPTIONS 7 [id number] MEDICAID M [id number] Self [id number] [facility] I [id number] Self [id number] MEDICAID [id number] Sepideh [id number] [facility] COMMUNITY PLAN MCDHMO [id number] SP [id number] [facility] Community Plan Commercial [id number] Self [id number] [facility] MEDICAID [id number] Sepideh [id number] [facility] MEDICAID [id number] xxxxxxxxx [id number] [employer] COMMUNITY PLAN MCDHMO [id number] SP [id number] INSURANCE COVID-19 [id number] 2 [id number] INSURANCE COVID-19 COVID Sepideh C OVID [facility] MEDICAID [id number] S [id number] [employer] COMMUNITY PLAN MCDHMO [id number] SP [id number] [facility] Commercial Insurance Co. [id number] Self [id number] [place] Medigap Part B [id number] Self [id number] Hmo Blue Option/Medicaid Health Maintenance Organization (HMO) V [id number] [facility] Health Maintenance Organization (HMO) [id number] Self 1 [id number] Medicaid [place] Medigap Part B [id number] Self [id number] Hmo Blue Option/Medicaid Health Maintenance Organization (HMO) V [id number] Self V [id number] Medicaid Medicaid [id number] Self [id number] [facility]-Community Plan Commercial [id number] Self [id number] [facility] Other 0 [id number] Self 0 [place] Med[place] Part B [id number] Self [id number] Hmo Blue Option/Medicaid Health Maintenance Organization (HMO) V [id number] Self V [id number] [facility] Health Maintenance Organization (HMO) [id number] Self 1 [id number] Community Plan - [facility] Commercial [id number] Self [id number] Community Plan - [facility] Commercial [id number] Self [id number] [facility] Other 0 [id number] Self 0 Medicaid [id number] Community [facility] [employer] [id number] Self [id number] [facility] [id number] Community Plan - [facility] [employer] [id number] Self [facility] Medigap Part B [id number] Self [place] Med[place]ap Part B [id number] Self o Blue Option/Medicaid Health Maintenance Organization (HMO) [id number] Self [facility] [id number] Knowledge Delivery [employer] [facility] [id number] SELF [id number] [facility] [id number] Patient [id number] Medicaid Medicaid [id number] Self [facility]-Community Plan Commercial [id number] Self UNITED HEALTHCARE(MCAID) P [id number] S [id number] UNITED HEALTHCARE(MCAID) P [id number] S [id number] [facility] MEDICAID 7 [id number] SELFPAY 5 UNAVAILABLE 1 UNAVAILA BLE MEDICAID 3 [id number] 1 [id number] MEDICAID W [id number] S [id number] BLUE CHOICE OPTION O [id number] S [id number] BLUE [employer]OSS [facility] PLAN [id number] SP [id number] BLUE CROSS [employer] PLAN [id number] SP [id number] MEDICAID [id number] SP [id number] HMO BLUE [id number] [employer] COMMUNITY PLAN MCDHMO [id number] SP [id number] O UNAVAILABLE UNAVAILA BLE [employer] COMMUNITY PLAN MCDHMO [id number] SP [id number] "" OT None [facility](MCAID) P [id number] S [id number] [facility] COMMUNTY PLAN [id number] 18 [id number] UN[employer] COMMUNITY PLAN XIX MC [id number] 18 [id number] [employer] COMMUNITY PLAN MCDO [id number] SP [id number] BLUE CROSS BLUE SHIELD-O/P [id number] UN[employer] COMMUNITY PLAN XIX -RECURRING MC [id number] 18 [id number] [facility] Community Plan [id number] STPP Wrap [id number] [employer] Other 0 [id number] Self 0 [employer] Other 0 [id number] Self 0 [employer] Other 0 [id number] Self 0 [facility] MEDICAID PI PI [employer] Other 0 [id number] Self 0 [employer] Other 0 [id number] Self 0 [employer] Other 0 [id number] Self 0 Problems, Conditions, and Diagnoses Code Display Name Description Problem Type Effective Dates Data Source(s) G40.209 Localization-related (focal) (partial) symptomatic epilepsy and epileptic syndromes with complex partial seizures, not intractable, without status epilepticus Localization-related (focal) (partial) s ymptomatic epilepsy and epileptic syndromes with complex partial seizures, not intractable, without status epilepticus Diagnosis 05/31/2021 01:46:15 PM EDT [facility] S92.101S Unspecified fracture of right talus, seq uela Unspecified fracture of right talus, sequela Diagnosis 05/04/2021 11:06:52 AM EDT [facility] R56.9 Unspecified convulsions Unspecified convulsions Diagno sis 03/07/2021 07:05:44 AM EDT [facility] R26.2 Difficulty in walking, not elsewhere cla ssified DIFFICULTY IN WALKING, NOT ELSEWHERE CLASSIFIED Diagnosis 02/07/2021 12:00:00 AM EDT [facility] ([facility]) M62.81 Muscle weakness (generalized) MUSCLE WEAKNESS (GENERAL IZED) Diagnosis 02/07/2021 12:00:00 AM EDT [facility] ([facility]) M25.571 Pain in right ankle and joints of right foot PAIN IN RIGHT ANKLE AND JOINTS OF RIGHT FOOT Diagnosis 02/06/2021 12:00:00 AM EDT [facility] ([facility]) K21.9 Gastro-esophageal reflux disease without esophagitis GASTRO-ESOPHAGEAL REFLUX DISEASE WITHOUT ESOPHAGITIS Diagnosis 02/06/2021 12:00:00 AM ED T [facility] ([facility]) I10 Essential (primary) hypertension ESSENTIAL (PRIMARY) H YPERTENSION Diagnosis 02/06/2021 12:00:00 AM EDT [facility] ([facility]) N35.919 UNSPECIFIED URETHRAL STRICTURE, MALE, UN SPECIFIED SITE UNSPECIFIED URETHRAL STRICTURE, MALE, UNSPECIFIED SITE Diagnosis 02/06/2021 12:00: 00 AM EDT [facility] ([facility]) F32.9 Major depressive disorder, single episod e, unspecified MAJOR DEPRESSIVE DISORDER, SINGLE EPISODE, UNSPECIFIED Diagnosis 02/06/2021 12:00:00 AM EDT [facility] ([facility]) G40.909 Epilepsy, unspecified, not intractable, without status epilepticus EPILEPSY, UNSPECIFIED, NOT INTRACTABLE, WITHOUT STATUS EPILEPTICUS Diagnosis 02/06/2021 12:00:00 AM EDT [facility] ([facility]) Z68.43 Body mass index (BMI) 50-59.9 , adult RAHEL DY MASS INDEX [BMI] 50.0-59.9, ADULT Diagnosis 02/06/2021 12:00:00 AM EDT [facility] ([facility] [place]) E66.01 Morbid (severe) obesity due to excess ca lories MORBID (SEVERE) OBESITY DUE TO EXCESS CALORIES Diagnosis 02/06/2021 12:00:00 AM EDT [facility] ([facility] [place]) G47.33 Obstructive sleep apnea (adult) (pediatr ic) OBSTRUCTIVE SLEEP APNEA (ADULT) (PEDIATRIC) Diagnosis 02/06/2021 12:00:00 AM EDT [facility] ([facility]) J45.909 Unspecified asthma, uncomplicated UNSPECIFIED THMA, UNCOMPLICATED Diagnosis 02/06/2021 12:00:00 AM EDT [facility] ([facility]) M19.071 Primary osteoarthritis, right ankle and foot PRIMARY OSTEOARTHRITIS, RIGHT ANKLE AND FOOT Diagnosis 02/06/2021 12:00:00 AM EDT [facility] ([facility]) Z20.822 CONTACT WITH AND (SUSPECTED) EXPOSURE TO COVID-19 CONTACT WITH AND (SUSPECTED) EXPOSURE TO COVID-19 Diagnosis 02/06/2021 12:00:00 AM EDT [facility] ([facility]) Z47.89 Encounter for other orthopedic aftercare ENCOUNTER FOR OTHER ORTHOPEDIC AFTERCARE Diagnosis 02/06/2021 12:00:00 AM EDT [facility] ([facility]) M19.071 Primary osteoarthritis, right ankle and foot Primary osteoarthritis, right ankle and foot Diagnosis 01/30/2021 05:03:27 PM [facility] Closed displaced fracture of right talus with malunion, unspecified fracture morphology, subsequent encounter [S92.101P] Closed displaced fracture of right talus with malunion, unspecified fracture morphology, subsequent encounter [S92.101P] Diagnosis 01/30/2021 09:09:00 AM [facility] Arthritis of right subtalar joint [M19.0 71] Arthritis of right subtalar joint [M19.071] Diagnosis 01/30/2021 09:09:00 AM [facility] 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 Diagnosis 10/24/2020 06:01:00 PM [facility] Z79.899 Other terminologist (current) drug therapy O THER CUSTODIAL (CURRENT) DRUG THERAPY Diagnosis 10/24/2020 06:01:[address] [facility] Z79.891 half-way (current) use of opiate analge sic CUSTODIAL (CURRENT) USE OF OPIATE ANALGESIC Diagnosis 10/24/2020 06:01:[address] [facility] Z79.2 half-way (current) use of antibiotics L DEANN TERM (CURRENT) USE OF ANTIBIOTICS Diagnosis 10/24/2020 06:01:00 PM EDT [facility] J45.909 Unspecified asthma, uncomplicated UNSPECIFIED THMA, UNCOMPLICATED Diagnosis 10/24/2020 06:01:00 PM EDT [facility] K43.9 Ventral hernia without obstruction or ga ngrene VENTRAL HERNIA WITHOUT OBSTRUCTION OR GANGRENE Diagnosis 10/24/2020 06:01:00 PM EDT [facility]ital R10.11 Right upper quadrant pain RIGHT UPPER QUADRANT PAIN Di agnosis 10/24/2020 06:01:00 PM EDT [facility] [id number] Encounter for other preprocedural examin ation Encounter for other preprocedural examination Diagnosis 04/20/2020 02:36:00 PM EDT [facility] H6123 Impacted cerumen, bilateral Impacted cerumen, bilatera l Diagnosis 04/05/2020 10:11:00 AM EDT [facility] K29.70 [id number] Gastritis without bl eeding, unspecified chronicity, unspecified gastritis type Problem 05/17/2021 12:00:00 AM EDT [facility] ([facility]) Z47.89 Encounter for other orthopedic aftercare Encounter for other orthopedic aftercare Problem 04/12/2021 01:00:00 AM EDT [facility] ([facility]) R07.9 Chest pain Chest pain Problem 10/30/2020 12:00:00 AM ED T [facility] ([facility]) R06.02 Dyspnea Dyspnea Problem 10/30/2020 12:00:00 AM ED T [facility] ([facility]) E66.01 Morbid obesity Morbid obesity Problem 10/30/2020 12:00: 00 AM EDT [facility] ([facility]) Z71.3 Dietary management surveillance Dietary management colton veillance Problem 10/30/2020 12:00:00 AM EDT [facility] ([facility]) I10 Essential hypertension Essential hypertension Problem 10/30/2020 12:00:00 AM EDT [facility] ([facility]) E78.1 Pure hyperglyceridemia Pure hyperglyceridemia Problem 10/30/2020 12:00:00 AM EDT [facility] ([facility]) Z01.810 Preoperative cardiovascular examination Preoperative cardiovascular examination Problem 10/30/2020 12:00:00 AM EDT [facility] R07.1 Breathing painful Breathing painful Problem 10/30/2020 12:00:00 AM EDT [facility] ([facility]) E78.49 [id number] Hyperlipidemia due to dietary fat intake Problem 10/27/2020 12:00:00 AM EDT eCW1 ([facility]) K59.00 Constipation Constipation, unspecified constipation ty pe Problem 09/23/2020 12:00:00 AM EST eCW1 ([facility]) M17.0 [id number] Primary osteoarthritis of both knees Prob jah 09/23/2020 12:00:00 AM EST eCW1 ([facility]) [id number] Essential hypertension Essential hypertension Problem 08/23/2020 12:00:00 AM EST [facility] ([facility] ) G47.33 [id number] Obstructive sleep apnea Problem 08/03/2020 1 2:00:00 AM EST eCW1 ([facility]) G40.909 [id number] Seizure disorder Problem 08/03/2020 12:00:00 AM EST eCW1 ([facility]) J45.20 [id number] Mild intermittent asthma without complica tion Problem 08/03/2020 12:00:00 AM EST eCW1 ([facility]) Z68.43 [id number] BMI 50.0-59.9, adult Problem 08/03/2020 12:0 0:00 AM EST eCW1 ([facility]) Surgeries/Procedures Procedure Description Date Indications Data Source(s) EEG SLEEP DEPRIVED <td>EEG SLEEP DEPRIVED</td>< td>Routine</td><td>03/07/2021 7:30 AM EDT</td><td> Seizure</td><td> </td> 03/07/2021 07:30:00 AM EDT [facility] Seizure DRUG SCREEN QUALITATIVE TOPIRAMATE <td>TOPIRAMATE LEVEL</td><td>Routine</td><td>02/20/2021 10:19 AM EDT</td><td> Partial symptomatic epilepsy with complex partial seizures, not intractable, without status epilepticus</td><td> </td> 02/20/2021 10:19:00 AM EDT Partial symptomatic epilepsy with comple x partial seizures, not intractable, without status epilepticus [facility] Partial symptomatic epilepsy with comple x partial seizures, not intractable, without status epilepticus LEVETIRACETAM LEVEL <td>LEVETIRACETAM LEVEL</td> <td>Routine</td><td>02/20/2021 10:19 AM EDT</td><td> Partial symptomatic epilepsy with complex partial seizures, not intractable, without status epilepticus</td><td> </td> 02/20/2021 10:19:00 AM EDT Partial symptomatic epilepsy with comple x partial seizures, not intractable, without status epilepticus [facility] Partial symptomatic epilepsy with comple x partial seizures, not intractable, without status epilepticus BLOOD COUNT COMPLETE AUTO&AUTO DIFRNTL WBC COUNT <td>C BC AND DIFFERENTIAL</td><td>Routine</td><td>02/20/2021 10:19 AM EDT</td><td> Seizure</td><td> </td> 02/20/2021 10:19:00 AM EDT [facility] Seizure COMPREHENSIVE METABOLIC PANEL <td>COMPREHENSIVE METABO LIC PANEL</td><td>Routine</td><td>02/20/2021 10:19 AM EDT</td><td> Seizure</td><td> </td> 02/20/2021 10:19:00 AM EDT [facility] Seizure RESPIRATORY PATHOGEN PANEL <td>RESPIRATORY PATHOGEN PANEL</td><td>Routine</td><td>02/05/2021 9:40 PM EDT</td><td></td><td> </td> 02/05/2021 09:40:00 PM EDT [facility] COVID-19 PCR <td>COVID-19 PCR</td><td>Rou kerri</td><td>02/05/2021 9:40 PM EDT</td><td></td><td> </td> 02/05/2021 09:40:00 PM [facility] BLOOD COUNT COMPLETE AUTOMATED <td>CBC</td><td>Routine </td><td>02/05/2021 5:27 AM EDT</td><td></td><td> </td> 02/05/2021 05:27:00 AM [facility] BASIC METABOLIC PANEL CALCIUM TOTAL <td>BASIC METABOLI C PANEL</td><td>Routine</td><td>02/05/2021 5:27 AM EDT</td><td></td><td> </td> 02/05/2021 05:27:00 AM [facility] RESPIRATORY PATHOGEN PANEL <td>RESPIRATORY PATHOGEN PANEL</td><td>Routine</td><td>01/30/2021 9:11 PM EDT</td><td></td><td> </td> 01/30/2021 09:11:00 PM [facility] COVID-19 PCR <td>COVID-19 PCR</td><td>Rou kerri</td><td>01/30/2021 9:11 PM EDT</td><td></td><td> </td> 01/30/2021 09:11:00 PM [facility] ARTHRODESIS SUBTALAR <td>ARTHRODESIS SUBTALAR</td ><td></td><td>01/30/2021 1:32 PM EDT</td><td> Arthritis of right subtalar joint Closed displaced fracture of right talus with malunion, unspecified fracture morphology, subsequent encounter</td><td></td> 01/30/2021 01:32:00 PM EDT - 01/30/2021 04:32:00 PM EDT Closed displaced fracture of right talus with malunion, unspecified fracture morphology, subsequent encounterArthritis of right subtalar joint [facility] Closed displaced fracture of right talus with malunion, unspecified fracture morphology, subsequent encounter Arthritis of right subtalar joint US GUIDED PERIPHERAL NERVE BLOCK (OR ONLY) <td>US GUID ED PERIPHERAL NERVE BLOCK (OR ONLY)</td><td>Routine</td><td>01/30/2021 11:55 AM EDT</td><td></td><td></td> 01/30/2021 11:55:00 AM EDT [facility] ECHO TTHRC R-T 2D W/WOM-MODE COMPL SPEC&COLR DOP 12/19 12:00:00 AM EDT [facility] ([facility]) OFFICE OUTPATIENT VISIT 25 MINUTES 12/12/2020 12:00:00 AM EDT [facility] ([facility] ) Laparoscopic Incisional Hernia W/ Mesh, Reducible 11/07/2020 12:00:00 AM EDT [facility] ([facility], ) ECG ROUTINE ECG W/LEAST 12 LDS W/I&R 10/30/2020 12:00: 00 AM EDT [facility] ([facility]) OFFICE OUTPATIENT VISIT 25 MINUTES 09/13/2020 12:00:00 AM EST [facility] ([facility], ) Measure Blood Oxygen Level Continuous Overnight Monitor 09/12/2020 12:00:00 AM EST [facility] ([facility], ) OFFICE OUTPATIENT VISIT 25 MINUTES 08/23/2020 12:00:00 AM EST [facility] ([facility], ) OFFICE OUTPATIENT NEW 45 MINUTES 08/17/2020 12:00:00 A M EST [facility] ([facility], ) SURGERY CASE REQUEST OUTSIDE FACILITY ONLY <td>SURGERY CASE REQUEST OUTSIDE FACILITY ONLY</td><td>Routine</td><td>06/28/2020 1:27 PM EST</td><td> Arthritis of right subtalar joint Closed displaced fracture of right talus, unspecified fracture morphology, sequela</td><td></td> 06/28/2020 01:27:23 PM EST Closed displaced fracture o f right talus, unspecified fracture morphology, sequelaArthritis of right subtalar joint [facility] Closed displaced fracture of right talus , unspecified fracture morphology, sequela Arthritis of right subtalar joint Results ID Date Data Source [id number] 05/31/2021 04:28:28 PM EDT [facility] MR BRAIN WITH AND WITHOUT CONTRAST [id number] FINAL RESULTInterpreted by:Jadiel Brasher MDEXAMINATION:MR BRAIN WITH AND WITHOUT CONTRAST [id number].CLINICAL INDICATION: Seizures.TECHNIQUE: Multiplanar and multisequence MR images [...] rce(s) Supporting Document(s) ID Date Data Source [id number] 05/25/2021 11:12:47 AM EDT [facility] Name Value Range Interpretation Code Description Data Giovana rce(s) Supporting Document(s) Progress Note [facility] KFYSVn4jGlFQMiRz01/PLFloILLxn3NoXWtuVAd6AAxyNUMcL2AyXQW2uZ9cDYQ3ACsCOoYiVqSePDG9 lbm [file] DQogICAgICAgICAgICAgICAgICAgICAgICAgICAgICAgICAgICAgICAgICAgICAgICAgICAgICAgICAg ICAgICAgICAgICAgICAgICAgICAgICAgICAgICAgIC AgICAgICAgICAgDQogICAgICAgICAgICAgICAgICAgICAgICAgICAgICAgICAgICAgICAgICAgICAgIC AgICAgICAgICAgICAgICAgICAgICAgICAgICAgICAgICAgICAgICAgICAgICAgICAgICAgDQogICAgIC AgICAgICAgICAgICAgICAgICAgICAgICAgICAgICAg ICAgICAgICAgICAgICAgICAgICAgICAgICAgICAgICAgICAgICAgICAgICAgICAgICAgICAgICAgICAg ICAgDQogICAgICAgICAgICAgICAgICAgICAgICAgICAgICAgICAgICAgICAgICAgICAgICAgICAgICAg ICAgICAgICAgICAgICAgICAgICAgICAgICAgICAgIC AgICAgICAgICAgICAgDQogICAgICAgICAgICAgICAgICAgICAgICAgICAgICAgICAgICAgICAgICAgIC AgICAgICAgICAgICAgICAgICAgICAgICAgICAgICAgICAgICAgICAgICAgICAgICAgICAgICAgDQogIC AgICAgICAgICAgICAgICAgICAgICAgICAgICAgICAg ICAgICAgICAgICAgICAgICAgICAgICAgICAgICAgICAgICAgICAgICAgICAgICAgICAgICAgICAgICAg ICAgICAgDQogICAgICAgICAgICAgICAgICAgICAgICAgICAgICAgICAgICAgICAgICAgICAgICAgICAg ICAgICAgICAgICAgICAgICAgICAgICAgICAgICAgIC AgICAgICAgICAgICAgICAgDQogICAgICAgICAgICAgICAgICAgICAgICAgICAgICAgICAgICAgICAgIC AgICAgICAgICAgICAgICAgICAgICAgICAgICAgICAgICAgICAgICAgICAgICAgICAgICAgICAgICAgDQ ogICAgICAgICAgICAgICAgICAgICAgICAgICAgICAg ICAgICAgICAgICAgICAgICAgICAgICAgICAgICAgICAgICAgICAgICAgICAgICAgICAgICAgICAgICAg ICAgICAgICAgDQogICAgICAgICAgICAgICAgICAgICAgICAgICAgICAgICAgICAgICAgICAgICAgICAg ICAgICAgICAgICAgICAgICAgICAgICAgICAgICAgIC MmNOUaZFYhDLFhBYNeXSAcVBOiZEg1G3wiTRSzSEQpAX8mMIo1Tc4+QUrZKvHePES7jbZssU1SDX7xd7 KvUCqwGFJrm9YaYDt4SP5IQXBuVQcjWG7DUDvftt2ANFFbSCMnhFBId8xeDiZeOYR3ZMPlCenlEZ5NNT OkM9xosbXnPVXjWYMSQQftFRMEOWsbPVURSXVqKBFb ElLhJeUbEGYcGHOeFQOGUPE6SCFpXpBqICKzOLXvGhLsJGTZLP9XCrSaF4WlhF28DDqLMh2+DQplbmRv ToaAQnH4CWGtw7TqIUd5IO0WCRYuPhgbc9TtIjptAGCOXUrfYY6QSMQ4KAM5JLAkKw4SYFEgM815pwDg FK5CKt7HRzTmCB6twp0OAixiSUTgJnmJDvi6ILhgGY 7DmRThGAkSyk8nvtCjanFMj0EgumRzwVNFtSO4w9BeQYMOsQHrLaUhAFNRRVE8QTFdFiC8WhAcUqRrCI R2LRStXK1sCOzwSJ0HWBK1MDjbOBUcTDEjV0wPJyVoIXKmHGCcxWksMP2THrChW8KybuTunCMzFJYfVA INCj4+ONhnxdAkYwdHLeZlAZWub2QdBAi5PN9CGIDx QUpdUB5PHNOmqW3gQGcyZV0XWuQpGgDpVREKJaNzL68roVZfUOw4Y1FmAzXeKELdNindRJPrMDckNaAk ZXMgWyBdDQogID4+ID4+ODwxAJ2KVDqqdeGiLSAcLq6PHADfADVaCP4mYBGyDRRuQ9K8lOcuAAUECtQd Z8pltecmEZ2dEEOoG539cTakzjIkCEF9NGSyJt9TBD PbCTD6CCPrwWPwQxqjFUMGBUjdHU5PlJLtNKG2uB1dGKltEIBcRARqG4tLFtQgdCcbFG63qGzfmvOsyK BdDQo+Pp7GRV5tb1EbCQh4gfRwECtvMDSgYUodWHHfOXCgFSGjSKZ8WSS2ZBTGFbDdLBYsIQRqMZceAV UtCYVzfi6DTXRgLLM6ZecyVRDzEOMxCNKbFJjiGLNw DXB8OwO1BFSmHBVdCG1AYuRmYEKmSAHaBJmoDGDuMQYwpt8KJMMeLVIlAaD6RlCkVKIfIYJqASnqSBFn VDNsJmUtZIIsUEPqVP5WTwOcLAKdBZPkXIokAZRzNIAtpl2MBLOhYJRpSuCgLeYrWPVnXMEwDAakANQh CCZ5LOkjRADvFWTqYL2SBlFpMDDyJHqjPUWvTEVuWY Xeob5RLNFgOTVhBED5OWOeKXJuZNZgXTnrYERrRZGgNwG0YGFaMWQwJH0YIwIsWBSlUTF7LLpoWOYtML Qqde2NYGRcWVNsUVS1AhKrVKWtDNKqRVqqDRBcCZW0YaBePJSeRQJcQD0PHnQiJYQzIBq0AEllTNPoBM Ioos9HZBTbXRQhLMX2KyUySUVkHDXiZZqmSLUkYHGy Lxc2TQFiKEUpKZ9BDwKdYOWhElKrVSWfQLLmFEWcmk3VAQPvZTGfFNT0KYZcODIcGRGxBMtaWRFrBXC6 UiHvSLGpKLKoOR5OJmKaVLXhIfc4TAcuPLSaFBNifz4PUHVeCXWjNVIwUYHmBUQpBHYhBYxdRMAxQIP7 KyX4ZWQuEQTmPQ9SRsLcCYFsLok8YZikAJWvSTUimk 2BAIPlSZAaCAq9VBIaADNzLIKsYJueSRVcDRXhNFPjWAZuPXZfOZ8AFsTsWPTjQbLiUqalITPxKJEkpj 7PJBAnTXU5LPN2FLRuTCAmKUJyZBimFSPqTJMwSDsxJEJfNIGgZU4EKpSaEEWeVNBhOQKdKWErMIDojp 1IKLAfGHI1WvJ0JtUoXHHnEAIjHMleBNYtPNVtUWi8 OWZgJEMmDR8VTzIlBPOhLQJ8SETgHVQmTOLwbi9KADUdXCY2LmccQJCzBCUaVNPxAOqoNBTcGTIoDKO9 UVFwDEAbUG1THwYtOOKfWNZvAyMiIKScZTKvwo2XUXEfGCZ4ZTeoLeIkTYGnMMHhKXmtQITpBPN6ZVz0 SUScFENkYR3LSuLzQZFeBAXnXursBXUcBOHxeq0UfZ MqmDhzdx9IJMkFLd4DmGopDOToCQanUp5jlLH3YWPtBEISCn6UpxYnIFTgAFUHLXmfYYSmXUVjYmejQE fwEOZhS7P2XvScJMjoOEg4SVReDyP2EdlaXwJ0JAOzTSW5AETmOdHxUXx4CJCbMASaEnJtIJN8IRJuOH I+IY1wQHs+Cj4Py7QnvlS1eaEfFFs5ApS3Kd2FXQGBW9ECNc== ID Date Data Source [id number] 05/23/2021 02:39:17 PM [facility] Name Value Range Interpretation Code Description Data Giovana rce(s) Supporting Document(s) Levetiracetam [Mass/volume] in Serum or Plasma 12-46 L [facility] ID Date Data Source [id number] 05/23/2021 01:40:35 PM [facility] Name Value Range Interpretation Code Description Data Giovana rce(s) Supporting Document(s) Leukocytes [#/volume] in Blood by Automated count 8.0 10*3/uL 4-10 [facility] Erythrocytes [#/volume] in Blood by Automated count 5.72 10*6/uL 4.6- 6.1 [facility] Hemoglobin [Mass/volume] in Blood 15.8 g/dL 13.5-18 [facility] Hematocrit [Volume Fraction] of Blood by Automated count 48.6 % 4 1-53 [facility] Erythrocyte mean corpuscular volume [Entitic volume] by Auto mated count 85.0 fL 80-96 [facility] Erythrocyte mean corpuscular hemoglobin [Entitic mass] by Automated count 27.6 pg 27-33 [facility] Erythrocyte mean corpuscular hemoglobin concentration [Mass/volume] by Automated count 32.5 g/dL 32.0-[facility].0 [facility] width [Ratio] by Automated count 15.2 % 11.5-14.5 H [facility] Platelets [#/volume] in Blood by Automated count 249 10*3/uL 150-400 [facility] Differential cell count method - Blood [facility] Neutrophils/100 leukocytes in Blood by Automated count 68 % [facility] Lymphocytes/100 leukocytes in Blood by Automated count 20 % [facility] Monocytes/100 leukocytes in Blood by Automated count 9 % [facility] Eosinophils/100 leukocytes in Blood by Automated count 3 % [facility] Basophils/100 leukocytes in Blood by Automated count 0 % [facility] Neutrophils [#/volume] in Blood by Automated count 5.53 10*3/uL 1.8-7 .0 [facility] Lymphocytes [#/volume] in Blood by Automated count 1.60 10*3/uL 1.2-4 .0 [facility] Monocytes [#/volume] in Blood by Automated count 0.68 10*3/uL 0-0.8 [facility] Eosinophils [#/volume] in Blood by Automated count 0.20 10*3/uL 0-0.5 [facility] Basophils [#/volume] in Blood by Automated count 0.01 10*3/uL 0-0.2 [facility] Nucleated erythrocytes/100 leukocytes [Ratio] in Blood by Automated count 0 /100{WBCs} 0-0 [facility] ID Date Data Source [id number] 05/23/2021 01:55:55 PM T [facility] Name Value Range Interpretation Code Description Data Giovana rce(s) Supporting Document(s) Bicarbonate [Moles/volume] in Serum 27 mmol/L 22-29 [facility] Chloride [Moles/volume] in Serum or Plasma 104 mmol/L 98-107 [facility] Creatinine [Mass/volume] in Serum or Plasma 0.84 mg/dL 0.70-1.20 [facility] Glucose [Mass/volume] in Serum or Plasma 107 mg/dL 70-140 [facility] Potassium [Moles/volume] in Serum or Plasma 3.6 mmol/L 3.4-5.1 [facility] Sodium [Moles/volume] in Serum or Plasma 141 mmol/L 136-145 [facility] Urea nitrogen [Mass/volume] in Serum or Plasma 6 mg/dL 6-20 [facility] Anion gap 3 in Serum or Plasma 10 mmol/L 8-15 [facility] Osmolality of Serum or Plasma by calculation 290 mosm/kg 275-300 [facility] Creatinine/Urea nitrogen [Mass Ratio] in Serum or Plasma 7 [facility] Calcium [Mass/volume] in Serum or Plasma 9.1 mg/dL 8.6-10.0 [facility] Glomerular filtration rate/1.73 sq M pre dicted among non-blacks [Volume Rate/Area] in Serum or Plasma by Creatinine-based formula (MDRD) >6 0 [facility] Glomerular filtration rate/1.73 sq M pre dicted among blacks [Volume Rate/Area] in Serum or Plasma by Creatinine-based formula (MDRD) >60 [facility] ID Date Data Source [id number] 05/23/2021 01:55:55 PM T [facility] Name Value Range Interpretation Code Description Data Giovana rce(s) Supporting Document(s) Topiramate [Mass/volume] in Serum or Plasma <25.0 [facility] ID Date Data Source [id number] 05/15/2021 02:32:49 PM EDT [facility] Name Value Range Interpretation Code Description Data Giovana rce(s) Supporting Document(s) Progress Note [facility] FNLDIy4vCiIYEhXp80/MQRjrZYTej6WoHUgwASm8VNeiYUVqR8EsRIH8vZ6mHPJ0MZdJTcHmKoZgLXN0 lbm [file] AgICAgICAgICAgICAgICAgICAgICAgICAgICAgICAg ICAgICAgICAgICAgICANCiAgICAgICAgICAgICAgICAgICAgICAgICAgICAgICAgICAgICAgICAgICAg ICAgICAgICAgICAgICAgICAgICAgICAgICAgICAgICAgICAgICAgICAgICAgICAgICAgICAgICANCiAg ICAgICAgICAgICAgICAgICAgICAgICAgICAgICAgIC AgICAgICAgICAgICAgICAgICAgICAgICAgICAgICAgICAgICAgICAgICAgICAgICAgICAgICAgICAgIC AgICAgICANCiAgICAgICAgICAgICAgICAgICAgICAgICAgICAgICAgICAgICAgICAgICAgICAgICAgIC AgICAgICAgICAgICAgICAgICAgICAgICAgICAgICAg ICAgICAgICAgICAgICAgICANCiAgICAgICAgICAgICAgICAgICAgICAgICAgICAgICAgICAgICAgICAg ICAgICAgICAgICAgICAgICAgICAgICAgICAgICAgICAgICAgICAgICAgICAgICAgICAgICAgICAgICAN CiAgICAgICAgICAgICAgICAgICAgICAgICAgICAgIC AgICAgICAgICAgICAgICAgICAgICAgICAgICAgICAgICAgICAgICAgICAgICAgICAgICAgICAgICAgIC AgICAgICAgICANCiAgICAgICAgICAgICAgICAgICAgICAgICAgICAgICAgICAgICAgICAgICAgICAgIC AgICAgICAgICAgICAgICAgICAgICAgICAgICAgICAg ICAgICAgICAgICAgICAgICAgICANCiAgICAgICAgICAgICAgICAgICAgICAgICAgICAgICAgICAgICAg ICAgICAgICAgICAgICAgICAgICAgICAgICAgICAgICAgICAgICAgICAgICAgICAgICAgICAgICAgICAg ICANCiAgICAgICAgICAgICAgICAgICAgICAgICAgIC AgICAgICAgICAgICAgICAgICAgICAgICAgICAgICAgICAgICAgICAgICAgICAgICAgICAgICAgICAgIC AgICAgICAgICAgICANCiAgICAgICAgICAgICAgICAgICAgICAgICAgICAgICAgICAgICAgICAgICAgIC AgICAgICAgICAgICAgICAgICAgICAgICAgICAgICAg ICAgICAgICAgICAgICAgICAgICAgICANCjw/mKUtC7dekZDttnU1A0tbBv0GBw7WJJ9uk7KsJZNxDWkq rjKuTebTUzVvEJOuZuaYIpw8WQnaTN9GeIKcA1FuU0CmRCreTC4SQBEeSPDgaQJmHDPiMSHoGlM0QTPk ZVlmVX6GhNWlCUcnIGNiEALwMvAyRFAmLJ2XHETnK9 49fnTaCw5WSi9EMtHuJK0kuy9QWqFcYSBqXqeFLnj5IUnbUC2NsONhlDJiKOWcIDRUKbTaR6utg1EhGk UhBVIOJZlsLB9Eu9RpmSNzJUv+Aj1ATC0dj2KgGBjlKSXkCT9gjd6BVJtSWaYwM6HwfXyfOMDlj9lsXU LtBG3jxFKnGEX0ONPaf9C4RK4lGaPxybErn0OjGoWg GqwqVIYkLMQgUZYwEV1gYHLwRRBfSuJxDQOFRD9JTAMqNABpvATkYCRvRNVZRE6CUMfjRSW4YPPgagUn lUCnRCcwGD7CPSQoatSoVuDwJCHWIXe+Po1WHX9ir6JtYUlwGbSyCX6zky5GIHiNPfUrZ0L4hDGnQ4D0 DPynZs3WYCSnQJBhHeVaRQLCAPjkFF1VFA4bqcL2WK 8VmMHbEGMhQBVvyLNzGLq5T58bpFIrVRnqNX6AURP+Janeen+Ki9ZKAQoJFJmHQJnFdIjXJCAXqAdO5HmU7 ROd7KwW4SbDA11cOfhxgDpMFpbTU9QDC8zVDOxMWMIGR1IrMWgqQ9qdiYzLKCiNTAGKtCoQ75obAIfCM JtNXJyHXZeZu2EWYZjU6RyiwNteNfbcxEhWKCjTZFE ZH3FYGnbnrQohQJbbEziSA21eAysDH9IIu8REzAlBL5fyy8HmCCeUz7MLCTsFf3JCZGxPFEtXTGuPXH9 TQCqDpJfIUnwLYCpKOHhUVF0NXAaKLGiBM3WQaJcPHOwCaAxUrObXOOlQPGorz8KBAPcMAXfBmG6OLZi TGNuDQSwKWrqUDWiGXYoSCD3YMIxSCJdDR2TFbNeTN FeMOOgHCxuNNOpIEAyyn7IULKrOAElLzDcBpFhCESfRJRjMPgnLGSyJGD9Mdo0CEOgSOCxPE4FEsThFT MdKSM8YEFxKLTuSTKmls9YTJAkXKMbTUt6DpFkFLWyQOAvVQykXKBsBEU4JOL2XTZsGMWpAO6FLnCaKB TaXUVqHZlzJNIoMIPhrn5UDWTpMDDtFzZ8XGBtHQJc DHZtQDdeMYGkOXY7WUfuIMFwGPBbAS0SJvVaGRIjQEj8XrqaQNQuFTUuee3ULXTeGOFyHMS3CWQnKJGt JHWvTOwyRWJrAXW2QCJtLQYmDVYkRG1KUwRmBBZjZTc3YhNfVSEuVZWzyf1STGVfYSOcYYd3DbAhMEHt SJTyHMxiOLQcXXVlXCN5EYKrKTJeBJ8YAqFiHBIbAj Y1VlZcXTObQPAlpx1CXZUqRUJnODV1SSArJPXcBELzJDadRTXdNHJmBrG1DENxFVViPE6GAoSaEOXrFg D3ZCQbXKFlATXdjp4NLWRcCBCcVvQ7STFdDJOeHPArHHlsAMRgSKBtUvhjOKUxMTQtZO0YXwCyVYVyJj X3XbThGEBpJOUoon9HmSQmdWfhnu3SLEhWSg5MdPni NLA6VQwxXc1uhKRiXlZdVKEMLg8IvdUhSRVmHYNXEGgeYTRxBOCnDTIsBRGyARYuTmKxLsRcVAZ2XbIx JiRsMNYnQNgdDuB3KHB6TAJ6EzSpKOPyXhJpPdS5OYJdBuL1MuS2YWAsJPW+MZ3oQSu+Yj1Ge1BsugL4 avOaYJbkFsL7WF4SQBXYQ2ETNy== ID Date Data Source [id number] 05/04/2021 05:20:29 PM EDT [facility] XR ANKLE 3 OR MORE VIEWS [id number] RESU LTInterpreted by:ALKA Lawson ANKLE CLINICAL STATEMENT: [...] rce(s) Supporting Document(s) ID Date Data Source [id number] 04/27/2021 08:47:00 PM EDT [facility] Name Value Range Interpretation Code Description Data Giovana rce(s) Supporting Document(s) SARS coronavirus 2 RNA [Presence] in Res piratory specimen by ADONAY with probe detection NEGATIVE [facility] This lab was ordered by [facility] a nd reported by [facility]. ID Date Data Source [id number] 04/21/2021 04:03:00 PM EDT [facility] Name Value Range Interpretation Code Description Data Giovana rce(s) Supporting Document(s) SARS-CoV-2 (COVID 19) NEGATIVE - SARS-CoV-2 (COVID19) [facility] This lab was ordered by [facility] a nd reported by [facility]. ID Date Data Source [id number] 04/16/2021 11:10:08 AM EDT Laboratory [facility] [...] - CORE MPV 7.6 fL (7.1-10.7) [facility] - CORE NEUT % 70.5 % (35.0-75.0) [facility] - CORE LYMPH % 18.5 % (16.0-52.0) [facility] - CORE MONO % 7.0 % (0.0-8.0) [facility] - CORE EOS % 3.7 % (0.0-5.0) [facility] - CORE BASO % 0.3 % (0.0-4.0) [facility] - CORE NEUT # 6.6 10*3/uL (1.8-7.7) Laboratory [facility] - CORE LYMPH # 1.7 10*3/uL (1.2-4.8) [facility] - CORE MONO # 0.7 10*3/uL (0.0-0.8) [facility] [place] - CORE Eosinophils [#/volume] in Blood by Automated count 0.3 10*3/uL (0.0-0 .5) [facility] - CORE BASO # 0.0 10*3/uL (0.0-0.2) [facility] - CORE ID Date Data Source [id number] 04/16/2021 12:05:00 PM EDT [facility] Name Value Range Interpretation Code Description Data Giovana rce(s) Supporting Document(s) SODIUM 140 mmol/L (136-145) [facility] - CORE POTASSIUM 3.9 mmol/L (3.6-5.2) [facility] - CORE CHLORIDE 107 mmol/L (100-108) [facility] - CORE CO2 27 mmol/L (22-31) [facility] - CORE ANION GAP 6 mmol/L (7-16) L [facility] - CORE UREA NITROGEN 9 mg/dL (7-24) [facility] - CORE CREATININE 0.81 mg/dL (0.80-1.30) [facility] - CORE BUN/CREAT RATIO 11.1 RATIO (10.0-20.0) [facility] - CORE GLUCOSE 79 mg/dL (70-99) [facility] - CORE CALCIUM 8.6 mg/dL (8.4-10.2) [facility] - CORE GFR >60 ml/min/1.73m2 (>59) [facility] [place] - CORE GFR ( AMER) >60 ml/min/1.73m2 (>59) [facility] - CORE GFR INTERPRETATION [facility] - CORE --NORMAL KIDNEY FUNCTION OR MILD DISEASE - GFR >OR= 60CHRONIC KIDNEY DISEASE - GFR 15 - 59RENAL FAILURE - GFR <15 Est. GFR calculation based on the MDRDstudy equation, which assumes a steadystate for creatinine. Est. GFR should notbe used for medication dosing. ID Date Data Source [id number] 04/12/2021 12:39:15 PM EDT Laboratory [facility] [...] - CORE MPV 7.8 fL (7.1-10.7) [facility] - CORE NEUT % 75.4 % (35.0-75.0) H [facility] - CORE LYMPH % 17.4 % (16.0-52.0) [facility] - CORE MONO % 3.9 % (0.0-8.0) [facility] - CORE EOS % 3.1 % (0.0-5.0) [facility] - CORE BASO % 0.2 % (0.0-4.0) [facility] - CORE NEUT # 6.5 10*3/uL (1.8-7.7) [facility] [place] - CORE LYMPH # 1.5 10*3/uL (1.2-4.8) [facility] [place] - CORE MONO # 0.3 10*3/uL (0.0-0.8) [facility] - CORE Eosinophils [#/volume] in Blood by Automated count 0.3 10*3/uL (0.0-0 .5) [facility] - CORE BASO # 0.0 10*3/uL (0.0-0.2) [facility] - CORE ID Date Data Source [id number] 04/12/2021 01:25:33 PM EDT [facility] Name Value Range Interpretation Code Description Data Giovana rce(s) Supporting Document(s) SODIUM 141 mmol/L (136-145) [facility] - CORE POTASSIUM 3.9 mmol/L (3.6-5.2) [facility] - CORE CHLORIDE 108 mmol/L (100-108) [facility] - CORE CO2 25 mmol/L (22-31) [facility] - CORE ANION GAP 8 mmol/L (7-16) [facility] - CORE UREA NITROGEN 14 mg/dL (7-24) [facility] - CORE CREATININE 0.85 mg/dL (0.80-1.30) [facility] - CORE BUN/CREAT RATIO 16.5 RATIO (10.0-20.0) [facility] - CORE GLUCOSE 99 mg/dL (70-99) [facility] - CORE CALCIUM 8.7 mg/dL (8.4-10.2) [facility] - CORE GFR >60 ml/min/1.73m2 (>59) [facility] - CORE GFR ( AMER) >60 ml/min/1.73m2 (>59) [facility] - CORE GFR INTERPRETATION [facility] - CORE --NORMAL KIDNEY FUNCTION OR MILD DISEASE - GFR >OR= 60CHRONIC KIDNEY DISEASE - GFR 15 - 59RENAL FAILURE - GFR <15 Est. GFR calculation based on the MDRDstudy equation, which assumes a steadystate for creatinine. Est. GFR should notbe used for medication dosing. ID Date Data Source [id number] 04/11/2021 12:00:00 AM EDT [facility] Name Value Range Interpretation Code Description Data Giovana rce(s) Supporting Document(s) SARS coronavirus 2 Ag Negative [facility] This lab was ordered by [facility] [place] and reported by [facility]. ID Date Data Source [id number] 04/09/2021 11:49:40 AM EDT Laboratory [facility] [...] - CORE MPV 7.8 fL (7.1-10.7) [facility] - CORE NEUT % 72.3 % (35.0-75.0) [facility] - CORE LYMPH % 17.7 % (16.0-52.0) [facility] - CORE MONO % 6.3 % (0.0-8.0) [facility] - CORE EOS % 3.4 % (0.0-5.0) [facility] - CORE BASO % 0.3 % (0.0-4.0) [facility] - CORE NEUT # 7.3 10*3/uL (1.8-7.7) [facility] - CORE LYMPH # 1.8 10*3/uL (1.2-4.8) [facility] - CORE MONO # 0.6 10*3/uL (0.0-0.8) [facility] - CORE Eosinophils [#/volume] in Blood by Automated count 0.3 10*3/uL (0.0-0 .5) [facility] - CORE BASO # 0.0 10*3/uL (0.0-0.2) [facility] ID Date Data Source [id number] 04/09/2021 12:09:03 PM EDT [facility] Name Value Range Interpretation Code Description Data Giovana rce(s) Supporting Document(s) SODIUM 140 mmol/L (136-145) [facility] - CORE POTASSIUM 3.9 mmol/L (3.6-5.2) [facility] - CORE CHLORIDE 109 mmol/L (100-108) H [facility] - CORE CO2 24 mmol/L (22-31) [facility] - CORE ANION GAP 7 mmol/L (7-16) [facility] - CORE UREA NITROGEN 10 mg/dL (7-24) [facility] - CORE CREATININE 0.83 mg/dL (0.80-1.30) [facility] - CORE BUN/CREAT RATIO 12.0 RATIO (10.0-20.0) [facility] - CORE GLUCOSE 88 mg/dL (70-99) [facility] - CORE CALCIUM 8.5 mg/dL (8.4-10.2) [facility] C[facility] GFR >60 ml/min/1.73m2 (>59) [facility] - CORE GFR ( AMER) >60 ml/min/1.73m2 (>59) [facility] - CORE GFR INTERPRETATION [facility] - CORE --NORMAL KIDNEY FUNCTION OR MILD DISEASE - GFR >OR= 60CHRONIC KIDNEY DISEASE - GFR 15 - 59RENAL FAILURE - GFR <15 Est. GFR calculation based on the MDRDstudy equation, which assumes a steadystate for creatinine. Est. GFR should notbe used for medication dosing. ID Date Data Source [id number] 04/05/2021 12:13:42 PM EDT [email or web address] - CORE Name Value Range Interpretation Code [...] - CORE MPV 7.9 fL (7.1-10.7) [facility] C[facility] NEUT % 70.6 % (35.0-75.0) [facility] - CORE LYMPH % 19.7 % (16.0-52.0) [facility] - CORE MONO % 6.4 % (0.0-8.0) [facility] CORE EOS % 3.1 % (0.0-5.0) [facility] CORE BASO % 0.2 % (0.0-4.0) [facility] - CORE NEUT # 6.8 10*3/uL (1.8-7.7) [facility]ORE LYMPH # 1.9 10*3/uL (1.2-4.8) [facility] CORE MONO # 0.6 10*3/uL (0.0-0.8) [facility] - CORE Eosinophils [#/volume] in Blood by Automated count 0.3 10*3/uL (0.0-0 .5) [facility] CORE BASO # 0.0 10*3/uL (0.0-0.2) [facility] ID Date Data Source [id number] 04/05/2021 12:37:40 PM EDT [facility] C[facility] Name Value Range Interpretation Code Description Data Giovana rce(s) Supporting Document(s) SODIUM 142 mmol/L (136-145) [facility] CORE POTASSIUM 3.9 mmol/L (3.6-5.2) [facility] CORE CHLORIDE 107 mmol/L (100-108) [facility] CORE CO2 23 mmol/L (22-31) [facility] CORE ANION GAP 12 mmol/L (7-16) [facility] - CORE UREA NITROGEN 10 mg/dL (7-24) [facility] - CORE CREATININE 0.81 mg/dL (0.80-1.30) [facility] - CORE BUN/CREAT RATIO 12.3 RATIO (10.0-20.0) [email or web address] GLU[facility]SE 74 mg/dL (70-99) [facility] [email or web address] [facility] CORE CALCIUM 8.3 mg/dL (8.4-10.2) L [facility] [email or web address] - CORE GFR >60 ml/min/1.73m2 (>59) [facility] [email or web address] - CORE GFR ( AMER) >60 ml/min/1.73m2 (>59) [facility] [email or web address] - CORE GFR INTERPRETATION [email or web address] CORE --NORMAL KIDNEY FUNCTION OR MILD DISEASE - GFR >OR= 60CHRONIC KIDNEY DISEASE - GFR 15 - 59RENAL FAILURE - GFR <15 Est. GFR calculation based on the MDRDstudy equation, which assumes a steadystate for creatinine. Est. GFR should notbe used for medication dosing. ID Date Data Source [id number] 04/03/2021 10:32:29 AM EDT [facility] [employer] Name Value Range Interpretation Code Description Data Giovana rce(s) Supporting Document(s) WBC 10.4 10*3/uL (4.1-11.0) [email or web address] - CORE RBC 5.47 10*6/uL (4.60-6.10) [email or web address] - CORE HGB 15.6 g/dL (13.5-18.0) Laboratory [...] - CORE MPV 7.7 fL (7.1-10.7) [facility] - CORE NEUT % 75.4 % (35.0-75.0) H [facility] - CORE LYMPH % 14.8 % (16.0-52.0) L [facility] - CORE MONO % 6.6 % (0.0-8.0) [facility] CORE EOS % 3.0 % (0.0-5.0) [facility] CORE BASO % 0.2 % (0.0-4.0) [facility] - CORE NEUT # 7.9 10*3/uL (1.8-7.7) H [facility] - CORE LYMPH # 1.5 10*3/uL (1.2-4.8) [facility] CORE MONO # 0.7 10*3/uL (0.0-0.8) [facility] - [facility] Eosinophils [#/volume] in Blood by Automated count 0.3 10*3/uL (0.0-0 .5) [facility] - [facility] BASO # 0.0 10*3/uL (0.0-0.2) [facility] ID Date Data Source [id number] 04/03/2021 11:42:45 AM EDT [facility] Name Value Range Interpretation Code Description Data Giovana rce(s) Supporting Document(s) SODIUM 142 mmol/L (136-145) [facility] - [facility] POTASSIUM 4.2 mmol/L (3.6-5.2) [facility] - [facility] CHLORIDE 109 mmol/L (100-108) H [facility] - [facility] CO2 23 mmol/L (22-31) [facility] - CORE ANION GAP 10 mmol/L (7-16) [facility] - C[facility] UREA NITROGEN 12 mg/dL (7-24) Laboratory [facility] [employer] CREATININE 0.79 mg/dL (0.80-1.30) L Laboratory [facility] [employer] - CORE BUN/CREAT RATIO 15.2 RATIO (10.0-20.0) [facility] [employer] GLUCOSE 79 mg/dL (70-99) [facility] [employer] CALCIUM 8.6 mg/dL (8.4-10.2) [facility] [employer] GFR >60 ml/min/1.73m2 (>59) Laboratory [facility] [employer] - [employer] GFR ( AMER) >60 ml/min/1.73m2 (>59) Laboratory [facility] [employer] GFR INTERPRETATION Laboratory [facility] [employer] --NORMAL KIDNEY FUNCTION OR MILD DISEASE - GFR >OR= 60CHRONIC KIDNEY DISEASE - GFR 15 - 59RENAL FAILURE - GFR <15 Est. GFR calculation based on the MDRDstudy equation, which assumes a steadystate for creatinine. Est. GFR should notbe used for medication dosing. ID Date Data Source [id number] 04/03/2021 12:25:31 PM EDT [facility] [employer] Name Value Range Interpretation Code Description Data Giovana rce(s) Supporting Document(s) KEPPRA @ 11 ug/mL (5-30) Laboratory [facility] [employer] ID Date Data Source [id number] 04/05/2021 12:03:46 AM EDT [facility] [employer] Name Value Range Interpretation Code Description Data Giovana rce(s) Supporting Document(s) TOPIRAMATE 8.8 ug/mL Laboratory [facility] [email or web address] [facility] Reference range: 5.0 to 20.0 INTERPRETIV E INFORMATION: Topiramate Therapeutic range: 5.0-20.0 ug/mL Toxic: Not well established Pharmacokinetics varies widely, particularly with co-medications, age, and/or compromised renal function. Adverse effects may include somnolence, fatigue, and dizziness. Performed By: [facility] [address] [place] [id number] Branch Manager Trainee: Juana Mora MD ID Date Data Source [id number] 04/02/2021 12:47:16 PM EDT [facility] XR ANKLE 2 VIEWS [id number] RESULTInterp reted by:GWENDOLYN Hendrickslinical history: Status post [...] rce(s) Supporting Document(s) ID Date Data Source [id number] 04/02/2021 12:47:06 PM EDT [facility] XR FOOT 3 OR MORE VIEWS [id number] RESUL TInterpreted by:GWENDOLYN Hendrickslinical history: Status post [...] rce(s) Supporting Document(s) ID Date Data Source [id number] 03/29/2021 10:36:28 AM EDT [facility] Name Value Range Interpretation Code Description Data Giovana rce(s) Supporting Document(s) Progress Note [facility] HNDPXa6qZgAJHeNf32/YKNseHGAqp7XiBJcyZWl6APrxGRHiB0PyDFT1xP5lTEP6RZnKBxJrRaIjQUXc lbm [file] AgICAgICAgICAgICAgICAgICAgICAgICAgICAgICAg ICAgICAgICAgICAgICAgICAgICAgICAgICAgICAgICAgICAgICAgICAgICAgICAgICAgICAgDQogICAg ICAgICAgICAgICAgICAgICAgICAgICAgICAgICAgICAgICAgICAgICAgICAgICAgICAgICAgICAgICAg ICAgICAgICAgICAgICAgICAgICAgICAgICAgICAgIC AgICAgDQogICAgICAgICAgICAgICAgICAgICAgICAgICAgICAgICAgICAgICAgICAgICAgICAgICAgIC AgICAgICAgICAgICAgICAgICAgICAgICAgICAgICAgICAgICAgICAgICAgICAgDQogICAgICAgICAgIC AgICAgICAgICAgICAgICAgICAgICAgICAgICAgICAg ICAgICAgICAgICAgICAgICAgICAgICAgICAgICAgICAgICAgICAgICAgICAgICAgICAgICAgICAgDQog ICAgICAgICAgICAgICAgICAgICAgICAgICAgICAgICAgICAgICAgICAgICAgICAgICAgICAgICAgICAg ICAgICAgICAgICAgICAgICAgICAgICAgICAgICAgIC AgICAgICAgDQogICAgICAgICAgICAgICAgICAgICAgICAgICAgICAgICAgICAgICAgICAgICAgICAgIC AgICAgICAgICAgICAgICAgICAgICAgICAgICAgICAgICAgICAgICAgICAgICAgICAgDQogICAgICAgIC AgICAgICAgICAgICAgICAgICAgICAgICAgICAgICAg ICAgICAgICAgICAgICAgICAgICAgICAgICAgICAgICAgICAgICAgICAgICAgICAgICAgICAgICAgICAg DQogICAgICAgICAgICAgICAgICAgICAgICAgICAgICAgICAgICAgICAgICAgICAgICAgICAgICAgICAg ICAgICAgICAgICAgICAgICAgICAgICAgICAgICAgIC AgICAgICAgICAgDQogICAgICAgICAgICAgICAgICAgICAgICAgICAgICAgICAgICAgICAgICAgICAgIC AgICAgICAgICAgICAgICAgICAgICAgICAgICAgICAgICAgICAgICAgICAgICAgICAgICAgDQogICAgIC AgICAgICAgICAgICAgICAgICAgICAgICAgICAgICAg ICAgICAgICAgICAgICAgICAgICAgICAgICAgICAgICAgICAgICAgICAgICAgICAgICAgICAgICAgICAg XUAcQKd7I5vjFFJyYVYqNX1oEIg1Ig3+VMeTLkRhXHO3gyOhbF3YKB4tb2VhEGraTJEjr7JkYIi3QN8F NNAsLLbsIE3GLZmsvt4LGNPtNXMylDDHb7fsIfOyZS S0TLYcNtpuPG4YQFHqS6znjzMbDKKuUYGWKB5FMgWaK5LikA61UHNWHj2+FBuogqPiZkvVRuW0PWDmi8 ZwTAe7LZ8PLMAvWcilf3ZbAzEfCYVRNKnbSY8WRVH0ZJRcIMQkYa5PUGCmF148lsQhWI4LHj8WUgObMR 3wrf5UFtGpJDUqYyvDHdi3ZUwiOT5WzAJtVEjDrr5e wdDiqnGZn4WnokSebFRMnTSzn5OheXqikcJDMUbyCQHkHI1kAd2nONHfOQZnJtSxZZSMDG0NLCPjVMHc sUUpYTZsPPHZQC2EFXzmGKM9YKNcroRfwZPuCAbmXX4TTBLafzLlOMzvNOQHPTq+Wr2REU3od4MbQYjv QFPuQW3qwq5KNEcVXkNqA0L4rRZtL5O9LJdiLo3JWR XlPHDhKQhrEJWSAGonDQ8HNJ3tyhD4AZ7ToQLrQWHhIZHjyLVpAFz8M25lkIHcMHloCT8RYOP+Janeen+Pg 7DJAWwZXNfIHPmQcGdQHZOMpMgJ6RoI2QOs7CiK8LpBU29lTlmofOdAFpmUM8JCD7uGIUkQHYQWG9YhT NvzD8paeYcKMQqTYEHUkPqN33xzWHfIZPbODO0VYSd Os0PZENrN4OhnlDqlKnzfdBfTVApRVQGXR0MBOxaipXhcXFcoIybIB20fWfcSQ7UFr1FOnSyIO5imc4W aPRpTp5CMSAxWd0VZYVpOQQiUNJpQWL4OYUyRuHjGJrgGIHcYVIxQUO6XYCvHPUuPV5MWkIaPXSsCSfi NwMxNNRkGOEfcd8BHSMfRRIlSOi9VnFqVHEoZOPsMW svSLSyQRSfIAZ3TZAmILIrCQ7PTkIwTNRmXUGsYQCwIDObWAKmjx4WDNNsYQCwPkUtXRUhWKGgDOTaBN mmVOMqPSLxQCK6YACbQQZvNU1NGePpFPAdEZQmZgYtBOHhISDktf8ILMIrDNQkGvH9CUAeYPFuBYRsGA muBPVtKZS8HCq8NKZhVQXjOA8CBiAeFEMrXGS5UPEr TUAjBUTpeq3NWTDfKRJcFPp5UfUgJEMbMATwDQreGETvUPL1HtZeDSBvXJWwMB9JJpGsJUDuWPN2XFhe ZICvRFTigc7WEYYgHYJpQby0WfFdOBXmHNUaRButVVQnLJM4EHP4BFGjUIZxHT9LPaFnYPNxJIrjYVNe BUYwBPQetl5HRTWzCIYxFcJ5JnDkJQNwXWVbUMnxRG DrPSV8MNfmLBNnQKUrOS5ASzWlUVXnDDbhFmOtRJFxSMDlgk8CLWRpHVUvDGYiOPCxHIAmOWBoWZg3vn KcgGZlDAe9ES2KZ3MixsCgWyFMJo2Em244WHAuKBVdIj4MB3dnSq4jJFVcVEVTYn5LDMp0VqklG8DbHE T7IEYbONHjSaQnUEUyPuM0Omh2O3BrM9B+IDxmNzIz ZCOrUEV3KGNtGUAyGxP3ZXGxLBceUNceUpIaSo0pHSAMYf8+TNkimCRiqBnvLFCEFiN2BSPtHRmqBRAX Rg0K ID Date Data Source [id number] 03/29/2021 10:36:23 AM EDT [facility] Name Value Range Interpretation Code Description Data Giovana rce(s) Supporting Document(s) Progress Note [facility] LYDXGr3rRuALOpTs15/EDOjiZSGjn3McGBxxEBt7CFtaBCIrG2TpEGA2sV0xWKP2ZTjIVjAyLgBgGYHv lbm [file] ID Date Data Source [id number] 03/29/2021 09:57:33 AM EDT Laboratory [facility] [...] - CORE MPV 7.6 fL (7.1-10.7) [facility] - C[facility] NEUT % 65.5 % (35.0-75.0) [facility] - CORE LYMPH % 22.2 % (16.0-52.0) [facility] - CORE MONO % 8.1 % (0.0-8.0) H [facility] - C[facility] EOS % 3.9 % (0.0-5.0) [facility] - CORE BASO % 0.3 % (0.0-4.0) [facility] - CORE NEUT # 6.0 10*3/uL (1.8-7.7) [facility] - CORE LYMPH # 2.0 10*3/uL (1.2-4.8) [facility] - CORE MONO # 0.7 10*3/uL (0.0-0.8) [facility] - [facility] Eosinophils [#/volume] in Blood by Automated count 0.4 10*3/uL (0.0-0 .5) [facility] - C[facility] BASO # 0.0 10*3/uL (0.0-0.2) [facility] ID Date Data Source [id number] 03/29/2021 10:39:45 AM EDT [facility] Name Value Range Interpretation Code Description Data Giovana rce(s) Supporting Document(s) SODIUM 141 mmol/L (136-145) [facility] - [facility] POTASSIUM 3.9 mmol/L (3.6-5.2) [facility] - [facility] CHLORIDE 107 mmol/L (100-108) [facility] - [facility] CO2 28 mmol/L (22-31) [facility] - C[facility] ANION GAP 6 mmol/L (7-16) L [facility] - CORE UREA NITROGEN 11 mg/dL (7-24) [facility] - CORE CREATININE 0.96 mg/dL (0.80-1.30) [facility] - CORE BUN/CREAT RATIO 11.5 RATIO (10.0-20.0) [facility] - C[facility] GLUCOSE 75 mg/dL (70-99) [facility] - [facility] CALCIUM 8.9 mg/dL (8.4-10.2) [facility] - [facility] GFR >60 ml/min/1.73m2 (>59) [facility] GFR ( AMER) >60 ml/min/1.73m2 (>59) Laboratory [facility] GFR INTERPRETATION Laboratory [facility] --NORMAL KIDNEY FUNCTION OR MILD DISEASE - GFR >OR= 60CHRONIC KIDNEY DISEASE - GFR 15 - 59RENAL FAILURE - GFR <15 Est. GFR calculation based on the MDRDstudy equation, which assumes a steadystate for creatinine. Est. GFR should notbe used for medication dosing. ID Date Data Source [id number] 03/26/2021 12:08:04 PM EDT [facility] [employer] Name Value Range Interpretation Code Description Data Giovana rce(s) Supporting Document(s) WBC 10.0 10*3/uL (4.1-11.0) Laboratory [facility] [employer] - CORE RBC 5.37 10*6/uL (4.60-6.10) Laboratory [facility] of [employer] - CORE HGB 15.1 g/dL (13.5-18.0) Laboratory [...] 202 10*3/uL (150-450) Laboratory [facility] [employer] - CORE MPV 7.8 fL (7.1-10.7) [facility] - CORE NEUT % 69.9 % (35.0-75.0) [facility] - CORE LYMPH % 19.2 % (16.0-52.0) [facility] - CORE MONO % 7.3 % (0.0-8.0) [facility] - C[facility] EOS % 3.3 % (0.0-5.0) [facility] - CORE BASO % 0.3 % (0.0-4.0) [facility] - CORE NEUT # 7.0 10*3/uL (1.8-7.7) [facility] - C[facility] LYMPH # 1.9 10*3/uL (1.2-4.8) [facility] - CORE MONO # 0.7 10*3/uL (0.0-0.8) [facility] - CORE Eosinophils [#/volume] in Blood by Automated count 0.3 10*3/uL (0.0-0 .5) [facility] - CORE BASO # 0.0 10*3/uL (0.0-0.2) [facility] - [facility] ID Date Data Source [id number] 03/26/2021 02:43:37 PM EDT [facility] - [facility] Name Value Range Interpretation Code Description Data Giovana rce(s) Supporting Document(s) SODIUM 142 mmol/L (136-145) [facility] - [facility] POTASSIUM 4.1 mmol/L (3.6-5.2) [facility] - C[facility] CHLORIDE 109 mmol/L (100-108) H [facility] - C[facility] CO2 21 mmol/L (22-31) L [facility] - C[facility] ANION GAP 12 mmol/L (7-16) [facility] - CORE UREA NITROGEN 11 mg/dL (7-24) [facility] - CORE CREATININE 0.92 mg/dL (0.80-1.30) [facility] - CORE BUN/CREAT RATIO 12.0 RATIO (10.0-20.0) [facility] - CORE GLUCOSE 66 mg/dL (70-99) L [facility] [employer] - CORE CALCIUM 8.9 mg/dL (8.4-10.2) [facility] - [facility] GFR >60 ml/min/1.73m2 (>59) Laboratory [facility] [employer] - CORE GFR ( AMER) >60 ml/min/1.73m2 (>59) Laboratory [facility] [employer] - CORE GFR INTERPRETATION [facility] - [facility] --NORMAL KIDNEY FUNCTION OR MILD DISEASE - GFR >OR= 60CHRONIC KIDNEY DISEASE - GFR 15 - 59RENAL FAILURE - GFR <15 Est. GFR calculation based on the MDRDstudy equation, which assumes a steadystate for creatinine. Est. GFR should notbe used for medication dosing. ID Date Data Source [id number] 03/22/2021 09:38:11 AM EDT Laboratory [facility] [employer] - CORE Name Value Range Interpretation Code [...] - CORE MPV 7.6 fL (7.1-10.7) [facility] - CORE NEUT % 71.0 % (35.0-75.0) [facility] - CORE LYMPH % 18.9 % (16.0-52.0) [facility] - CORE MONO % 6.6 % (0.0-8.0) [facility] - CORE EOS % 3.3 % (0.0-5.0) [facility] - CORE BASO % 0.2 % (0.0-4.0) [facility] - CORE NEUT # 6.6 10*3/uL (1.8-7.7) [facility] - CORE LYMPH # 1.8 10*3/uL (1.2-4.8) [facility] - CORE MONO # 0.6 10*3/uL (0.0-0.8) [facility] - CORE Eosinophils [#/volume] in Blood by Automated count 0.3 10*3/uL (0.0-0 .5) [facility] - CORE BASO # 0.0 10*3/uL (0.0-0.2) [facility] - [facility] ID Date Data Source [id number] 03/22/2021 10:14:01 AM EDT [facility] - [facility] Name Value Range Interpretation Code Description Data Giovana rce(s) Supporting Document(s) SODIUM 141 mmol/L (136-145) [facility] - CORE POTASSIUM 3.8 mmol/L (3.6-5.2) [facility] - CORE CHLORIDE 106 mmol/L (100-108) [facility] - CORE CO2 23 mmol/L (22-31) [facility] - CORE ANION GAP 12 mmol/L (7-16) [facility] - CORE UREA NITROGEN 13 mg/dL (7-24) [facility] - CORE CREATININE 0.81 mg/dL (0.80-1.30) [facility] - CORE BUN/CREAT RATIO 16.0 RATIO (10.0-20.0) Laboratory [facility] - CORE GLUCOSE 75 mg/dL (70-99) [facility] - CORE CALCIUM 8.2 mg/dL (8.4-10.2) L [facility] - CORE GFR >60 ml/min/1.73m2 (>59) Laboratory [facility] - CORE GFR ( AMER) >60 ml/min/1.73m2 (>59) [facility] - CORE GFR INTERPRETATION [facility] - C[facility] --NORMAL KIDNEY FUNCTION OR MILD DISEASE - GFR >OR= 60CHRONIC KIDNEY DISEASE - GFR 15 - 59RENAL FAILURE - GFR <15 Est. GFR calculation based on the MDRDstudy equation, which assumes a steadystate for creatinine. Est. GFR should notbe used for medication dosing. ID Date Data Source [id number] 03/19/2021 10:06:24 AM EDT Laboratory [facility] [employer] - CORE Name Value Range Interpretation Code [...] - CORE MPV 7.7 fL (7.1-10.7) [facility] - CORE NEUT % 67.6 % (35.0-75.0) [facility] - CORE LYMPH % 21.1 % (16.0-52.0) [facility] - CORE MONO % 6.7 % (0.0-8.0) [facility] - CORE EOS % 4.3 % (0.0-5.0) [facility] - CORE BASO % 0.3 % (0.0-4.0) [facility] - CORE NEUT # 6.4 10*3/uL (1.8-7.7) [facility] - CORE LYMPH # 2.0 10*3/uL (1.2-4.8) [facility] - CORE MONO # 0.6 10*3/uL (0.0-0.8) [facility] - CORE Eosinophils [#/volume] in Blood by Automated count 0.4 10*3/uL (0.0-0 .5) [facility] - CORE BASO # 0.0 10*3/uL (0.0-0.2) [facility] - C[facility] ID Date Data Source [id number] 03/19/2021 01:29:50 PM EDT [facility] - [facility] Name Value Range Interpretation Code Description Data Giovana rce(s) Supporting Document(s) KEPPRA @ 9 ug/mL (5-30) [facility] - C[facility] ID Date Data Source [id number] 03/19/2021 01:30:25 PM EDT [facility] - [facility] Name Value Range Interpretation Code Description Data Giovana rce(s) Supporting Document(s) SODIUM 140 mmol/L (136-145) [facility] - CORE POTASSIUM 3.9 mmol/L (3.6-5.2) [facility] - CORE CHLORIDE 105 mmol/L (100-108) Laboratory [facility] [employer] - CORE CO2 23 mmol/L (22-31) [facility] [employer] - CORE ANION GAP 12 mmol/L (7-16) [facility] [employer] - CORE UREA NITROGEN 12 mg/dL (7-24) Laboratory [facility] [employer] - CORE CREATININE 0.87 mg/dL (0.80-1.30) Laboratory [facility] - CORE BUN/CREAT RATIO 13.8 RATIO (10.0-20.0) [facility] [employer] - CORE GLUCOSE 60 mg/dL (70-99) L [facility] [employer] - CORE CALCIUM 8.2 mg/dL (8.4-10.2) L [facility] [employer] - CORE GFR >60 ml/min/1.73m2 (>59) Laboratory [facility] [employer] - CORE GFR ( AMER) >60 ml/min/1.73m2 (>59) Laboratory [facility] [employer] GFR INTERPRETATION [facility] [employer] --NORMAL KIDNEY FUNCTION OR MILD DISEASE - GFR >OR= 60CHRONIC KIDNEY DISEASE - GFR 15 - 59RENAL FAILURE - GFR <15 Est. GFR calculation based on the MDRDstudy equation, which assumes a steadystate for creatinine. Est. GFR should notbe used for medication dosing. ID Date Data Source [id number] 03/20/2021 10:03:38 PM EDT Laboratory [facility] [employer] Name Value Range Interpretation Code Description Data Giovana rce(s) Supporting Document(s) TOPIRAMATE 9.8 ug/mL Laboratory [facility] [employer] Reference range: 5.0 to 20.0 INTERPRETIV E INFORMATION: Topiramate Therapeutic range: 5.0-20.0 ug/mL Toxic: Not well established Pharmacokinetics varies widely, particularly with co-medications, age, and/or compromised renal function. Adverse effects may include somnolence, fatigue, and dizziness. Performed By: [facility] [employer] [address] [place] [address] Branch Manager Trainee: Juana Mora MD ID Date Data Source [id number] 03/15/2021 12:46:40 PM EDT [facility] - [facility] Name Value Range Interpretation Code Description Data Giovana rce(s) Supporting Document(s) SODIUM 141 mmol/L (136-145) [facility] - CORE POTASSIUM 4.2 mmol/L (3.6-5.2) [facility] - CORE CHLORIDE 106 mmol/L (100-108) [facility] - CORE CO2 26 mmol/L (22-31) [facility] - CORE ANION GAP 9 mmol/L (7-16) [facility] - CORE UREA NITROGEN 11 mg/dL (7-24) Laboratory [facility] - CORE CREATININE 0.84 mg/dL (0.80-1.30) Laboratory [facility] - CORE BUN/CREAT RATIO 13.1 RATIO (10.0-20.0) [facility] - CORE GLUCOSE 67 mg/dL (70-99) L [facility] - CORE CALCIUM 8.4 mg/dL (8.4-10.2) [facility] - CORE GFR >60 ml/min/1.73m2 (>59) Laboratory [facility] - CORE GFR ( AMER) >60 ml/min/1.73m2 (>59) [facility] - CORE GFR INTERPRETATION [facility] - CORE --NORMAL KIDNEY FUNCTION OR MILD DISEASE - GFR >OR= 60CHRONIC KIDNEY DISEASE - GFR 15 - 59RENAL FAILURE - GFR <15 Est. GFR calculation based on the MDRDstudy equation, which assumes a steadystate for creatinine. Est. GFR should notbe used for medication dosing. ID Date Data Source [id number] 03/15/2021 12:48:09 PM EDT Laboratory [facility]ance [...] - CORE MPV 7.6 fL (7.1-10.7) [facility] - CORE NEUT % 69.2 % (35.0-75.0) [facility] - CORE LYMPH % 20.0 % (16.0-52.0) [facility] - CORE MONO % 6.7 % (0.0-8.0) [facility] - CORE EOS % 3.8 % (0.0-5.0) [facility] - CORE BASO % 0.3 % (0.0-4.0) [facility] - CORE NEUT # 6.4 10*3/uL (1.8-7.7) [facility] - CORE LYMPH # 1.9 10*3/uL (1.2-4.8) [facility] - CORE MONO # 0.6 10*3/uL (0.0-0.8) [facility] - CORE Eosinophils [#/volume] in Blood by Automated count 0.4 10*3/uL (0.0-0 .5) [facility] - CORE BASO # 0.0 10*3/uL (0.0-0.2) [facility] - CORE ID Date Data Source [id number] 03/12/2021 02:10:14 PM EDT Laboratory Al liance [...] - CORE MPV 8.0 fL (7.1-10.7) [facility] - CORE NEUT % 72.9 % (35.0-75.0) [facility] - CORE LYMPH % 16.4 % (16.0-52.0) [facility] - CORE MONO % 6.4 % (0.0-8.0) [facility] - CORE EOS % 4.1 % (0.0-5.0) [facility] - CORE BASO % 0.2 % (0.0-4.0) [facility] - CORE NEUT # 7.0 10*3/uL (1.8-7.7) [facility] - CORE LYMPH # 1.6 10*3/uL (1.2-4.8) Laboratory [facility] of [facility] - CORE MONO # 0.6 10*3/uL (0.0-0.8) Laboratory [facility] of [facility] - CORE Eosinophils [#/volume] in Blood by Automated count 0.4 10*3/uL (0.0-0 .5) [facility] - CORE BASO # 0.0 10*3/uL (0.0-0.2) Laboratory [facility] of [facility] - CORE ID Date Data Source [id number] 03/12/2021 02:57:16 PM EDT Laboratory [facility] [employer] - CORE Name Value Range Interpretation Code Description Data Giovana rce(s) Supporting Document(s) SODIUM 141 mmol/L (136-145) [facility] [employer] - CORE POTASSIUM 4.0 mmol/L (3.6-5.2) [facility] - CORE CHLORIDE 106 mmol/L (100-108) [facility] [employer] - CORE CO2 24 mmol/L (22-31) [facility] [employer] - CORE ANION GAP 11 mmol/L (7-16) [facility] [employer] - CORE UREA NITROGEN 12 mg/dL (7-24) Laboratory [facility] n[facility] of [facility] - CORE CREATININE 0.82 mg/dL (0.80-1.30) [facility] - CORE BUN/CREAT RATIO 14.6 RATIO (10.0-20.0) [facility] - CORE GLUCOSE 64 mg/dL (70-99) L [facility] [employer] - CORE CALCIUM 8.4 mg/dL (8.4-10.2) [facility] [employer] - CORE GFR >60 ml/min/1.73m2 (>59) Laboratory [facility] - CORE GFR ( AMER) >60 ml/min/1.73m2 (>59) [facility] - CORE GFR INTERPRETATION [facility] - CORE --NORMAL KIDNEY FUNCTION OR MILD DISEASE - GFR >OR= 60CHRONIC KIDNEY DISEASE - GFR 15 - 59RENAL FAILURE - GFR <15 Est. GFR calculation based on the MDRDstudy equation, which assumes a steadystate for creatinine. Est. GFR should notbe used for medication dosing. ID Date Data Source [id number] 03/08/2021 10:02:19 AM EDT Laboratory [facility] [...] - CORE MPV 7.7 fL (7.1-10.7) [facility] - CORE NEUT % 66.0 % (35.0-75.0) [facility] - CORE LYMPH % 20.5 % (16.0-52.0) [facility] CORE MONO % 8.3 % (0.0-8.0) H [facility] - CORE EOS % 5.0 % (0.0-5.0) [facility] CORE BASO % 0.2 % (0.0-4.0) [facility] CORE NEUT # 6.4 10*3/uL (1.8-7.7) [facility] - CORE LYMPH # 2.0 10*3/uL (1.2-4.8) [facility] - CORE MONO # 0.8 10*3/uL (0.0-0.8) [facility] - CORE Eosinophils [#/volume] in Blood by Automated count 0.5 10*3/uL (0.0-0 .5) [facility] - CORE BASO # 0.0 10*3/uL (0.0-0.2) [facility] ID Date Data Source [id number] 03/08/2021 10:35:27 AM EDT [facility] - CORE Name Value Range Interpretation Code Description Data Giovana rce(s) Supporting Document(s) SODIUM 140 mmol/L (136-145) [facility] - CORE POTASSIUM 3.6 mmol/L (3.6-5.2) [facility] CORE CHLORIDE 108 mmol/L (100-108) [facility] - CORE CO2 25 mmol/L (22-31) [facility] CORE ANION GAP 7 mmol/L (7-16) [facility] - CORE UREA NITROGEN 12 mg/dL (7-24) [facility] - CORE CREATININE 0.86 mg/dL (0.80-1.30) [facility] - CORE BUN/CREAT RATIO 14.0 RATIO (10.0-20.0) [facility] CORE GLUCOSE 76 mg/dL (70-99) [facility] CORE CALCIUM 8.4 mg/dL (8.4-10.2) [facility] - CORE GFR >60 ml/min/1.73m2 (>59) [facility] - CORE GFR ( AMER) >60 ml/min/1.73m2 (>59) [facility] CORE GFR INTERPRETATION [facility] - CORE --NORMAL KIDNEY FUNCTION OR MILD DISEASE - GFR >OR= 60CHRONIC KIDNEY DISEASE - GFR 15 - 59RENAL FAILURE - GFR <15 Est. GFR calculation based on the MDRDstudy equation, which assumes a steadystate for creatinine. Est. GFR should notbe used for medication dosing. ID Date Data Source [id number] 03/06/2021 12:42:20 PM EDT Laboratory [facility] [...] - CORE MPV 8.0 fL (7.1-10.7) [facility] CORE NEUT % 60.7 % (35.0-75.0) [facility] - CORE LYMPH % 25.0 % (16.0-52.0) [facility] - CORE MONO % 9.4 % (0.0-8.0) H [facility] CORE EOS % 4.5 % (0.0-5.0) [facility] CORE BASO % 0.4 % (0.0-4.0) [facility] - CORE NEUT # 5.5 10*3/uL (1.8-7.7) Laboratory [facility] - CORE LYMPH # 2.3 10*3/uL (1.2-4.8) [facility] - CORE MONO # 0.9 10*3/uL (0.0-0.8) H [facility] - CORE Eosinophils [#/volume] in Blood by Automated count 0.4 10*3/uL (0.0-0 .5) [facility] - CORE BASO # 0.0 10*3/uL (0.0-0.2) [facility] - CORE ID Date Data Source [id number] 03/06/2021 02:46:41 PM EDT [facility] Name Value Range Interpretation Code Description Data Giovana rce(s) Supporting Document(s) SODIUM 144 mmol/L (136-145) [facility] POTASSIUM 3.5 mmol/L (3.6-5.2) L [facility] CHLORIDE 107 mmol/L (100-108) [facility] CO2 25 mmol/L (22-31) [facility] ANION GAP 12 mmol/L (7-16) [facility] UREA NITROGEN 11 mg/dL (7-24) [facility] CREATININE 0.93 mg/dL (0.80-1.30) [facility] BUN/CREAT RATIO 11.8 RATIO (10.0-20.0) [facility] GLUCOSE 56 mg/dL (70-99) L [facility] CALCIUM 8.6 mg/dL (8.4-10.2) [facility] GFR >60 ml/min/1.73m2 (>59) [facility] GFR ( AMER) >60 ml/min/1.73m2 (>59) [facility] GFR INTERPRETATION [facility] --NORMAL KIDNEY FUNCTION OR MILD DISEASE - GFR >OR= 60CHRONIC KIDNEY DISEASE - GFR 15 - 59RENAL FAILURE - GFR <15 Est. GFR calculation based on the MDRDstudy equation, which assumes a steadystate for creatinine. Est. GFR should notbe used for medication dosing. ID Date Data Source [id number] 03/06/2021 02:53:20 PM EDT [facility] Name Value Range Interpretation Code Description Data Giovana rce(s) Supporting Document(s) KEPPRA @ 9 ug/mL (5-30) [facility] ID Date Data Source [id number] 03/07/2021 07:10:13 PM EDT [facility] Name Value Range Interpretation Code Description Data Giovana rce(s) Supporting Document(s) TOPIRAMATE 9.8 ug/mL [facility] Reference range: 5.0 to 20.0 INTERPRETIV E INFORMATION: Topiramate Therapeutic range: 5.0-20.0 ug/mL Toxic: Not well established Pharmacokinetics varies widely, particularly with co-medications, age, and/or compromised renal function. Adverse effects may include somnolence, fatigue, and dizziness. Performed By: [facility] [employer] [address] [place] [id number] Branch Manager Trainee: Juana Mora MD ID Date Data Source [id number] 03/01/2021 10:03:08 AM EDT [facility] Name Value Range Interpretation Code Description Data Giovana rce(s) Supporting Document(s) WBC 9.2 10*3/uL (4.1-11.0) [facility] [employer] [facility] [employer] [facility] RBC 5.26 10*6/uL (4.60-6.10) [facility] [employer] [facility] [employer] [facility] HGB 15.1 g/dL (13.5-18.0) Laboratory [facility] [...] - CORE MPV 7.7 fL (7.1-10.7) [facility] NEUT % 67.9 % (35.0-75.0) [facility] LYMPH % 19.8 % (16.0-52.0) [facility] MONO % 7.7 % (0.0-8.0) [facility] EOS % 4.3 % (0.0-5.0) [facility] BASO % 0.3 % (0.0-4.0) [facility] NEUT # 6.2 10*3/uL (1.8-7.7) [facility] LYMPH # 1.8 10*3/uL (1.2-4.8) [facility] MONO # 0.7 10*3/uL (0.0-0.8) [facility] Eosinophils [#/volume] in Blood by Automated count 0.4 10*3/uL (0.0-0 .5) [facility] BASO # 0.0 10*3/uL (0.0-0.2) [facility] ID Date Data Source [id number] 03/01/2021 10:34:43 AM EDT [facility] Name Value Range Interpretation Code Description Data Giovana rce(s) Supporting Document(s) SODIUM 140 mmol/L (136-145) [facility] POTASSIUM 3.5 mmol/L (3.6-5.2) L [facility] CHLORIDE 106 mmol/L (100-108) [facility] CO2 27 mmol/L (22-31) [facility] ANION GAP 7 mmol/L (7-16) [facility] UREA NITROGEN 13 mg/dL (7-24) [facility] CREATININE 0.90 mg/dL (0.80-1.30) [facility] BUN/CREAT RATIO 14.4 RATIO (10.0-20.0) [facility] GLUCOSE 73 mg/dL (70-99) [facility] CALCIUM 8.7 mg/dL (8.4-10.2) [facility] GFR >60 ml/min/1.73m2 (>59) [facility] GFR ( AMER) >60 ml/min/1.73m2 (>59) [facility] GFR INTERPRETATION [facility] --NORMAL KIDNEY FUNCTION OR MILD DISEASE - GFR >OR= 60CHRONIC KIDNEY DISEASE - GFR 15 - 59RENAL FAILURE - GFR <15 Est. GFR calculation based on the MDRDstudy equation, which assumes a steadystate for creatinine. Est. GFR should notbe used for medication dosing. ID Date Data Source [id number] 02/27/2021 06:28:19 AM EDT [facility] Name Value Range Interpretation Code Description Data Giovana rce(s) Supporting Document(s) Progress Note [facility] UMNAZc2uOiJPDrBi51/HBFxtNMSws2JvOOvnINw4AHhsGKGsM2FnBYI8bX6vGPQ3VAiIZbCsGvTxZLWx lbm [file] EFk7ZIVmRUDaRCR6IJP1QqD5ZkT3HeUqWL1XVg0EIqF5AAU1tHYgMx9FOPdjPCEVJaYuTF7KBQc= ID Date Data Source [id number] 02/27/2021 06:28:09 AM EDT [facility] Name Value Range Interpretation Code Description Data Giovana rce(s) Supporting Document(s) Progress Note [facility] FJRAFn4bUsUPYlLj37/DINimAUEyq1CjXFytVVc8QXmcIEIjZ3LhSTD6hS9cYAA4PFcITiEhYyFhKUFc lbm [file] WbTsMRJ0PVrfNpHpGW7MQy1XMuJ5FYK6jRLzRo1BJgD4RmuJBmXoVW3OYRm= ID Date Data Source [id number] 02/26/2021 09:48:01 AM EDT [facility] [...] - CORE MPV 7.3 fL (7.1-10.7) [facility] NEUT % 68.5 % (35.0-75.0) [facility] LYMPH % 20.0 % (16.0-52.0) [facility] MONO % 7.0 % (0.0-8.0) [facility] EOS % 4.3 % (0.0-5.0) [facility] BASO % 0.2 % (0.0-4.0) [facility] NEUT # 6.4 10*3/uL (1.8-7.7) [facility] LYMPH # 1.9 10*3/uL (1.2-4.8) [facility] MONO # 0.7 10*3/uL (0.0-0.8) [facility] Eosinophils [#/volume] in Blood by Automated count 0.4 10*3/uL (0.0-0 .5) [facility] BASO # 0.0 10*3/uL (0.0-0.2) [facility] ID Date Data Source [id number] 02/26/2021 10:52:39 AM EDT [facility] Name Value Range Interpretation Code Description Data Giovana rce(s) Supporting Document(s) SODIUM 141 mmol/L (136-145) [facility] POTASSIUM 3.7 mmol/L (3.6-5.2) [facility] CHLORIDE 107 mmol/L (100-108) [facility] CO2 27 mmol/L (22-31) [facility] [employer] - CORE ANION GAP 7 mmol/L (7-16) [facility] [employer] - CORE UREA NITROGEN 12 mg/dL (7-24) [facility] [employer] - CORE CREATININE 0.87 mg/dL (0.80-1.30) [facility] - [facility] BUN/CREAT RATIO 13.8 RATIO (10.0-20.0) [facility] [employer] - CORE GLUCOSE 71 mg/dL (70-99) [facility] [employer] - CORE CALCIUM 8.7 mg/dL (8.4-10.2) [facility] [employer] - CORE GFR >60 ml/min/1.73m2 (>59) [facility] [employer] - CORE GFR ( AMER) >60 ml/min/1.73m2 (>59) [facility] [employer] [facility] [employer] GFR INTERPRETATION [facility] CORE --NORMAL KIDNEY FUNCTION OR MILD DISEASE - GFR >OR= 60CHRONIC KIDNEY DISEASE - GFR 15 - 59RENAL FAILURE - GFR <15 Est. GFR calculation based on the MDRDstudy equation, which assumes a steadystate for creatinine. Est. GFR should notbe used for medication dosing. ID Date Data Source [id number] 02/27/2021 11:23:02 PM EDT [facility] [employer] [facility] [employer] [facility] Name Value Range Interpretation Code Description Data Giovana rce(s) Supporting Document(s) TOPIRAMATE 10.1 ug/mL [facility] [employer] [facility] [employer] [facility] Reference range: 5.0 to 20.0 INTERPRETIV E INFORMATION: Topiramate Therapeutic range: 5.0-20.0 ug/mL Toxic: Not well established Pharmacokinetics varies widely, particularly with co-medications, age, and/or compromised renal function. Adverse effects may include somnolence, fatigue, and dizziness. Performed By: [facility] [employer] [address] [place] [id number] Branch Manager Trainee: Juana Mora MD ID Date Data Source [id number] 02/22/2021 01:50:02 PM EDT [facility] Name Value Range Interpretation Code Description Data Giovana rce(s) Supporting Document(s) Progress Note [facility] KAMCZh6aJnWVFrHn62/NTHaaDNIpy7KlUIekGQx1UZmpHMNzU0IaXQK1uG5aLOP6WYaLQyTcAyBzJaL7 lbm [file] xT4/5Uaf9ivZesvR5altSLeC6F+iG7DT7eZZsYTj7jHrpv3Wl7gy1ps4rq+relocation coordinator/ZLrd6E9dMpjs3SV/0 [file] Smith+aRd94wcSZOEqKb/gvdBd2UDD2lfWNbcOmv1kc+f TLt43MbaCXnr9JH2DpaZA9F7cBr7Qtnjbuq7AK5URWKfMAipRvcW3p/Qg87ipHs1VY8xstk3O1Yq7VUj XjKw+IjaHIcPeGMteQoYw0g0SZr31aaVab+hmN1nL9yn0hr3ez+a1EOqNn1JnhS30LqIqxz5kbZlomsl yWZ3IKaohVcxREJ4lpoE1n4jIoErhnmBqy9YH3xrB7 DHfCXxnWArnCD0LyQH61rNH1S+SSn3cpSC2GQRwJyYvghFYVSgnYBPI3TZcI3H0vS4Wy2XtcnWmKN0j6 +sticov+stj/53So2uO6q3Ksjrl78pTSNgk1L/NrCLwsVUakuF5eNUpBv0BjfZc3AhLAm+ljJ+hkcXTA 7WWNZ79czHAXQj8xfNXW9tTgI2hSmb3oRnwr6Yvyt1 EYihdeksT5YGeOb9M36O1WDgExRUJPPWTu+ejqfPR+b60x/[employer] Back Tender/4GzrhZvsdzlZ+57Y3r01C3clm8wboe [file] AgICAgICAgICAgICAgICAgICAgICAgICAgICAgICAg EGRpHBOdARJqLGQyBADsAPTaYKTpUEUmFJTeYNMgEJTkNJ9GIPXlBPSkWVUbKYVlGEKpARIoJULjPAEo ICAgICAgICAgICAgICAgICAgICAgICAgICAgICAgICAgICAgICAgICAgICAgICAgICAgICAgICAgICAg IFGlANBjNTHeMDHkKCBuYJ3CLJUmHUVyPTEwJYCwJY AgICAgICAgICAgICAgICAgICAgICAgICAgICAgICAgICAgICAgICAgICAgICAgICAgICAgICAgICAgIC SdAXUjGAXcRUMgQUEkNZUyYLIxDNCeDTMjQK2JOXJxWDWgISIgEIXbADBaFRBlGALpCCTpYRFyVQGyYY AgICAgICAgICAgICAgICAgICAgICAgICAgICAgICAg JRQqNQViUUHzKFVnXDDrEBXjKCNqWWPaZUIxRGWoKEBaGNZgWV6XKKMbYLFnKJWtUHRwIPIdNDJnVTNy ICAgICAgICAgICAgICAgICAgICAgICAgICAgICAgICAgICAgICAgICAgICAgICAgICAgICAgICAgICAg AMSqZOTzWLOgEBXlFSYqBMEjOH4WYZQxBYVtNUJuAI AgICAgICAgICAgICAgICAgICAgICAgICAgICAgICAgICAgICAgICAgICAgICAgICAgICAgICAgICAgIC ZbKVDnLHIwSLRlNMUjRLUfQHXhJHWlVANgZHAgXB3PGHSbIEJvBQZxDVXeCOUuRYMvPHEgEXYjFIAyES AgICAgICAgICAgICAgICAgICAgICAgICAgICAgICAg MPWyKBPoIPGzXTIoUZUeBXSaCMSkNFSgZIIhGYMwHLYnIQKnKUAqAL5PDCHeDTOhGBCdRRJnJYEmRZWk ICAgICAgICAgICAgICAgICAgICAgICAgICAgICAgICAgICAgICAgICAgICAgICAgICAgICAgICAgICAg KMPaTCAyFYNhZXYeSPYsJSBjRSRjAK1PERWiKOYwYF AgICAgICAgICAgICAgICAgICAgICAgICAgICAgICAgICAgICAgICAgICAgICAgICAgICAgICAgICAgIC MsNBSeHZOjAGOkSIObWRPyICOpRYCeSGZsNCFiZPXaAM6ENBLlMDFmHUCqKTOlGPDxYNJaPSQlADOuKV AgICAgICAgICAgICAgICAgICAgICAgICAgICAgICAg FKNpZFZjYIJwUUJaHJHiDRBsMUQyMSTfJDDzUZTsYLAsPQHbYONuJDMkBH8NGY30jREso3Z7GPRfZS9k dyc/Nl5KXSjiwiJusJQwYL9NVpQgIN7bwf1CXqJvRJ4dui9DNIcCFoYuB6M3dDEgBYIhSXUTOuGwE44r KYfoNx15ERdmHOBdMoSdSIk9Nq3LJmMzC3uuLCXvGs C9GUMnJgS2QDLqZwU2BQIcDuEpUNChUYUpCOBqDNUCERG6NRGmYiHdZxDoPQVuYPtzMPXDOKXcLTStSg FnHsRzSUAdYD3EOIHoH769jgPjGFAQYq8+ZLnfrcPdRtsVJoFsSZPjl5JfUBx7EP1AYMGxEypxk1MaNB XpAHWEIDbfUC1TMTA6XHSbBFNvWi1LEYKzB808ugUv AO5QOy6CXbRbBS9nap2LGDQiHSErAxiSGdu8PDqlCH1MzLLiKYuLzl4xmpIaafDUx2JfaiLpxYLhXDJq LAC1RGQflvrzFWQjuEB5AkP8JrOqJpThFKw0CLQfUY7pUGekYG7AWQE1LTjdECBjFNUfK7lHYxYpEYWv AUEukUnwSW5EWaFvD6WbkqJpoFZ3APZtPOYLTo8+DQ xhgoWwMsdMBuUwHNVqu4SgGXq3RA4NDVZpNIinBZ3JDPRxcK7fIPknPA4LBrZhVKHiAPSMXaCvM89snQ LtDSu9Q9BkEpFkQHBlVxggTIGvLMnfWeMsIIEdOtEbLRsnVK7+ID4+KZkbIW6QXMoeaeAnSWYlRc4DWC TzDWCyNP0jZNNrRXTfM6O7uFjhTDMIAhPnO6gmjfwf OL6eOJKkN027qGsunhWkKKJnIVRtLu3JSPBpOLL2XCKacWTdWjidIDSVKVorQR5LbWQfNOK6iJ2yHHuq DOYaFONsU4xQDbAgwIvcDH30gOlwhxThaJHmJMx+Ao6HOJ3ws1EzWUe2lcOcSYjkMVLaLLkqXNGdSPRq HOMiEQT4BGS3IRJTXwWoACHqZMEzVIjzWHOyFHEitx 3NIGDxRRU2NdgsJqAhKDPhPDAiLDorGGUsMUP9XYI8HPVeHBFhXR9RUkJsZYNfYUDdDVnvJLBuVOOxli 5HIQXgGTOpAwE2SBJhQMItELPtUVisUFTwYCRcCVu2GFCuORAgJK1DMfLjSTZjEJB1NVCoHALvEAUvqz 0LADCrPGSqQfe4ExCpNBKwCBFiSHqlWYWlIOB4Xsbn BXEnMLBpVD1JBlFeICMtKOm6TGTiWQCvJBKxvi5KQTGoLOQzKMx6BOAdQWDyLDEvFGkuCLCyPBPkCUjm VWXiVIZkAV3VXsDxMAZbBCF3PRdhXJIlUBKhpw7SPAYkVCAuFYGtTKXbBKZqWUFpHYyqUFAlOHY5SZRx SOIlDCNkNY0ISlFvSCBuNAe5FgtrCFQzTVNkrl6WDR PzCHLsLTWnGsJvCSLvHYQoFLdhFDLaZEMpRtMoJBScOGShYB0NGkLjZPFdGnAtFdYoEFGkRLAbwn3HUY TeHDKiJMM8QLBgTASlGRQoKLgrAVTwNKL6NaIaPLElUVPnQN2ZNhWoWOEaInr2DOleEGGvOVYoar1KXO PfAVBxXRB7GBFwDZWvWFRbXPxiYDUcIIVoMZMlFSKw DVPqJF9LEwJgHOMuIwJ0YKIpXYVzPEOcqz8FHTPsPGPrLODjGSQlUQZbEDOkADixOTApVTArSlyhMKLi PUNaET6URnYmDVUkSpV1ZTOmFEVvXZVbof2IEDCxMOAyCes3LoKdLILlMRAxDVxjLCQtQSLyDAPhTMFt QUGkZY7RRcHvHNYtGGH9TuMoLBYcSOSukm5BIGVjQB Y8DKl0BQElTSUuAAKtMIhdAYEkKHR8QWC5WRZjHFUtHQ4TOcJeLKFmCKScFOGxPWFsCUWpxj7SDONuLG S1DXSlRYAsISArKDDxQUyrWONgVPP8ZOT5KIZyBYMgUP9XBxSkESHtJCQ5NwQlRMMkWGMcbw6DUOHsUV R6KzbjKHExWVLxECPlVMvsUVLvXFH2ZuJ7DLOzAMAw EU4FJiIxBDBwRMj7BrgxLKFsXEMeha5ZZEZqRGI8YIm2HRLwETVtMSCvEYnzIKMfDMN0ODDdRBAyKQIx DH3WLiLeYQknLIRJPhp7ZMeaT0b7ZTR6Nh4YD4Zpt4EiGAYsXFWEVVacYT5mubMtTWHsXg0EB8dXWvt4 YPMtBBk5KrXyLmf3EMHnSfNxOCM9Z6V9QNPgSLHrXB 3hGVwlHcU0DDP6XhG3WDqaCNGqOXQlWNS4CmO4X3JmFbX5ZfMhYM5CPt6OZzF8DFK5tUSeLf6ZQOkzIC hGRbElIV3VPUm= ID Date Data Source [id number] 02/22/2021 01:30:19 PM EDT Laboratory [facility] [...] - CORE MPV 7.4 fL (7.1-10.7) [facility] - [facility] NEUT % 66.6 % (35.0-75.0) [facility] - [facility] LYMPH % 20.7 % (16.0-52.0) [facility] - [facility] MONO % 7.0 % (0.0-8.0) [facility] - [facility] EOS % 5.4 % (0.0-5.0) H [facility] - C[facility] BASO % 0.3 % (0.0-4.0) [facility] - CORE NEUT # 5.3 10*3/uL (1.8-7.7) [facility] - CORE LYMPH # 1.6 10*3/uL (1.2-4.8) [facility] - CORE MONO # 0.5 10*3/uL (0.0-0.8) Laboratory [facility] of [place] - CORE Eosinophils [#/volume] in Blood by Automated count 0.4 10*3/uL (0.0-0 .5) [facility] - CORE BASO # 0.0 10*3/uL (0.0-0.2) [facility] ID Date Data Source [id number] 02/22/2021 03:19:00 PM EDT [facility] [employer] - [facility] Name Value Range Interpretation Code Description Data Giovana rce(s) Supporting Document(s) SODIUM 141 mmol/L (136-145) [facility] [employer] - CORE POTASSIUM 3.6 mmol/L (3.6-5.2) [facility] [employer] - CORE CHLORIDE 106 mmol/L (100-108) [facility] [employer] - CORE CO2 25 mmol/L (22-31) [facility] [employer] - CORE ANION GAP 10 mmol/L (7-16) [facility] [employer] - CORE UREA NITROGEN 10 mg/dL (7-24) Laboratory [facility] [employer] - CORE CREATININE 0.92 mg/dL (0.80-1.30) [facility] - [facility] BUN/CREAT RATIO 10.9 RATIO (10.0-20.0) [facility] [employer] - CORE GLUCOSE 91 mg/dL (70-99) [facility] [employer] - CORE CALCIUM 8.7 mg/dL (8.4-10.2) [facility] [employer] - CORE GFR >60 ml/min/1.73m2 (>59) Laboratory [facility] [employer] - CORE GFR ( AMER) >60 ml/min/1.73m2 (>59) [facility] [employer] - CORE GFR INTERPRETATION [facility] [place] CORE --NORMAL KIDNEY FUNCTION OR MILD DISEASE - GFR >OR= 60CHRONIC KIDNEY DISEASE - GFR 15 - 59RENAL FAILURE - GFR <15 Est. GFR calculation based on the MDRDstudy equation, which assumes a steadystate for creatinine. Est. GFR should notbe used for medication dosing. ID Date Data Source [id number] 02/20/2021 05:13:02 PM [facility] Name Value Range Interpretation Code Description Data Giovana rce(s) Supporting Document(s) Levetiracetam [Mass/volume] in Serum or Plasma 14 ug/mL 12-46 [facility] ID Date Data Source [id number] 02/20/2021 12:20:16 PM [facility] Name Value Range Interpretation Code Description Data Giovana rce(s) Supporting Document(s) Leukocytes [#/volume] in Blood by Automated count 8.4 10*3/uL 4-10 [facility] Erythrocytes [#/volume] in Blood by Automated count 5.28 10*6/uL 4.6- 6.1 [facility] Hemoglobin [Mass/volume] in Blood 15.1 g/dL 13.5-18 [facility] Hematocrit [Volume Fraction] of Blood by Automated count 45.4 % 4 1-53 [facility] Erythrocyte mean corpuscular volume [Entitic volume] by Auto mated count 85.9 fL 80-96 [facility] Erythrocyte mean corpuscular hemoglobin [Entitic mass] by Automated count 28.6 pg 27-33 [facility] Erythrocyte mean corpuscular hemoglobin concentration [Mass/volume] by Automated count 33.2 g/dL 32.0-36.0 [facility] distribution width [Ratio] by Automated count 15.1 % 11.5-14.5 H [facility] Platelets [#/volume] in Blood by Automated count 267 10*3/uL 150-400 [facility] Differential cell count method - Blood [facility] Neutrophils/100 leukocytes in Blood by Automated count 71 % [facility] Lymphocytes/100 leukocytes in Blood by Automated count 19 % [facility] Monocytes/100 leukocytes in Blood by Automated count 6 % [facility] Eosinophils/100 leukocytes in Blood by Automated count 4 % [facility] Basophils/100 leukocytes in Blood by Automated count 0 % [facility] Neutrophils [#/volume] in Blood by Automated count 5.88 10*3/uL 1.8-7 .0 [facility] Lymphocytes [#/volume] in Blood by Automated count 1.56 10*3/uL 1.2-4 .0 [facility] Monocytes [#/volume] in Blood by Automated count 0.52 10*3/uL 0-0.8 [facility] Eosinophils [#/volume] in Blood by Automated count 0.37 10*3/uL 0-0.5 [facility] Basophils [#/volume] in Blood by Automated count 0.03 10*3/uL 0-0.2 [facility] Nucleated erythrocytes/100 leukocytes [Ratio] in Blood by Automated count 0 /100{WBCs} 0-0 [facility] ID Date Data Source [id number] 02/20/2021 12:44:32 PM EDT [facility] Name Value Range Interpretation Code Description Data Giovana rce(s) Supporting Document(s) Albumin [Mass/volume] in Serum or Plasma by Bromocresol green (BCG) dye binding method 3.9 g/dL 3.5-5.2 [facility] Bilirubin.total [Mass/volume] in Serum or Plasma 0.3 mg/dL <1.2 [facility] Calcium [Mass/volume] in Serum or Plasma 9.1 mg/dL 8.6-10.0 [facility] Chloride [Moles/volume] in Serum or Plasma 104 mmol/L 98-107 [facility] Creatinine [Mass/volume] in Serum or Plasma 1.00 mg/dL 0.70-1.20 [facility] Glucose [Mass/volume] in Serum or Plasma 80 mg/dL 70-140 [facility] Alkaline phosphatase [Enzymatic activity/volume] in Serum or Plasma 96 U/L 40-129 [facility] Potassium [Moles/volume] in Serum or Plasma 3.6 mmol/L 3.4-5.1 [facility] Protein [Mass/volume] in Serum or Plasma 7.9 g/dL 6.4-8.3 [facility] Sodium [Moles/volume] in Serum or Plasma 142 mmol/L 136-145 [facility] Aspartate aminotransferase [Enzymatic activity/volume] in Serum or Plasma 24 U/L <40 [facility] Urea nitrogen [Mass/volume] in Serum or Plasma 11 mg/dL 6-20 [facility] Osmolality of Serum or Plasma by calculation 292 mosm/kg 275-300 [facility] Creatinine/Urea nitrogen [Mass Ratio] in Serum or Plasma 11 [facility] Bicarbonate [Moles/volume] in Serum 25 mmol/L 22-29 [facility] Alanine aminotransferase [Enzymatic activity/volume] in Seru m or Plasma 38 U/L <41 [facility] Anion gap 3 in Serum or Plasma 13 mmol/L 8-15 [facility] Glomerular filtration rate/1.73 sq M pre dicted among non-blacks [Volume Rate/Area] in Serum or Plasma by Creatinine-based formula (MDRD) >6 0 [facility] Glomerular filtration rate/1.73 sq M pre dicted among blacks [Volume Rate/Area] in Serum or Plasma by Creatinine-based formula (MDRD) >60 [facility] ID Date Data Source [id number] 02/20/2021 12:44:32 PM EDT [facility] Name Value Range Interpretation Code Description Data Giovana rce(s) Supporting Document(s) Topiramate [Mass/volume] in Serum or Plasma 15.7 ug/mL <25.0 [facility] ID Date Data Source [id number] 02/19/2021 01:03:07 PM EDT Laboratory [facility] [...] - CORE MPV 7.6 fL (7.1-10.7) [facility] NEUT % 67.1 % (35.0-75.0) [facility] - CORE LYMPH % 22.3 % (16.0-52.0) Laboratory [facility] of Y - CORE MONO % 6.1 % (0.0-8.0) Laboratory [facility] - CORE EOS % 4.1 % (0.0-5.0) Laboratory [facility] - CORE BASO % 0.4 % (0.0-4.0) Laboratory [facility] - CORE NEUT # 5.4 10*3/uL (1.8-7.7) [facility] - CORE LYMPH # 1.8 10*3/uL (1.2-4.8) Laboratory [facility] - CORE MONO # 0.5 10*3/uL (0.0-0.8) Laboratory [facility] of [facility] - CORE Eosinophils [#/volume] in Blood by Automated count 0.3 10*3/uL (0.0-0 .5) Laboratory [facility] - CORE BASO # 0.0 10*3/uL (0.0-0.2) Laboratory [facility] - CORE ID Date Data Source [id number] 02/19/2021 02:31:03 PM EDT Laboratory [facility] [place] Name Value Range Interpretation Code Description Data Giovana rce(s) Supporting Document(s) 25 HYDROXY VIT D @ 34 ng/mL (31-100) Laboratory [facility] A REVIEW OF THE LITERATURE SUGGESTS THEF OLLOWING RANGES FOR THE CLASSIFICATIONOF 25-OH VITAMIN D STATUS: VITAMIN D STATUS 25-OH VITAMIN D DEFICIENCY <20 NG/MLINSUFFICIENCY 20-30 NG/MLSUFFICIENCY 31 - 100 NG/MLTOXICITY > 100 NG/ML A PEDIATRIC REFERENCE RANGE HAS NOT BEENESTABLISHED USING THIS METHOD. ID Date Data Source [id number] 02/19/2021 03:28:57 PM EDT [facility] - [facility] Name Value Range Interpretation Code Description Data Giovana rce(s) Supporting Document(s) SODIUM 141 mmol/L (136-145) [facility] - CORE POTASSIUM 3.7 mmol/L (3.6-5.2) [facility] - CORE CHLORIDE 106 mmol/L (100-108) [facility] - CORE CO2 21 mmol/L (22-31) L [facility] - CORE ANION GAP 14 mmol/L (7-16) [facility] - CORE UREA NITROGEN 11 mg/dL (7-24) Laboratory [facility] - CORE CREATININE 0.94 mg/dL (0.80-1.30) Laboratory [facility] - CORE BUN/CREAT RATIO 11.7 RATIO (10.0-20.0) [facility] - CORE GLUCOSE 100 mg/dL (70-99) H [facility] - CORE CALCIUM 8.7 mg/dL (8.4-10.2) [facility] - CORE GFR >60 ml/min/1.73m2 (>59) Laboratory [facility] - CORE GFR ( AMER) >60 ml/min/1.73m2 (>59) [facility] - CORE GFR INTERPRETATION [facility] - CORE --NORMAL KIDNEY FUNCTION OR MILD DISEASE - GFR >OR= 60CHRONIC KIDNEY DISEASE - GFR 15 - 59RENAL FAILURE - GFR <15 Est. GFR calculation based on the MDRDstudy equation, which assumes a steadystate for creatinine. Est. GFR should notbe used for medication dosing. ID Date Data Source [id number] 02/15/2021 01:00:28 PM EDT [facility] XR FOOT 2 VIEWS PORT-OR [id number] RESUL TInterpreted by:Cedric Jurado MDThis statement is [...] rce(s) Supporting Document(s) ID Date Data Source [id number] 02/15/2021 11:52:26 AM EDT Laboratory [facility] [...] - CORE MPV 7.2 fL (7.1-10.7) [facility] - CORE NEUT % 65.4 % (35.0-75.0) [facility] - CORE LYMPH % 23.5 % (16.0-52.0) [facility] - CORE MONO % 7.0 % (0.0-8.0) [facility] - CORE EOS % 3.9 % (0.0-5.0) [facility] - CORE BASO % 0.2 % (0.0-4.0) [facility] - CORE NEUT # 5.7 10*3/uL (1.8-7.7) Laboratory [facility] - CORE LYMPH # 2.0 10*3/uL (1.2-4.8) Laboratory [facility] - CORE MONO # 0.6 10*3/uL (0.0-0.8) Laboratory [facility] - CORE Eosinophils [#/volume] in Blood by Automated count 0.3 10*3/uL (0.0-0 .5) [facility] - CORE BASO # 0.0 10*3/uL (0.0-0.2) Laboratory [facility] - CORE ID Date Data Source [id number] 02/15/2021 12:33:20 PM EDT [facility] Name Value Range Interpretation Code Description Data Giovana rce(s) Supporting Document(s) SODIUM 140 mmol/L (136-145) [facility] POTASSIUM 3.8 mmol/L (3.6-5.2) [facility] CHLORIDE 105 mmol/L (100-108) [facility] CO2 26 mmol/L (22-31) [facility] ANION GAP 9 mmol/L (7-16) [facility] UREA NITROGEN 14 mg/dL (7-24) [facility] CREATININE 0.93 mg/dL (0.80-1.30) [facility] BUN/CREAT RATIO 15.1 RATIO (10.0-20.0) [facility] GLUCOSE 90 mg/dL (70-99) [facility] CALCIUM 9.0 mg/dL (8.4-10.2) [facility] GFR >60 ml/min/1.73m2 (>59) [facility] - [facility] GFR ( AMER) >60 ml/min/1.73m2 (>59) [facility] GFR INTERPRETATION [facility] --NORMAL KIDNEY FUNCTION OR MILD DISEASE - GFR >OR= 60CHRONIC KIDNEY DISEASE - GFR 15 - 59RENAL FAILURE - GFR <15 Est. GFR calculation based on the MDRDstudy equation, which assumes a steadystate for creatinine. Est. GFR should notbe used for medication dosing. ID Date Data Source [id number] 02/13/2021 10:32:45 AM EDT [facility] [...] - CORE MPV 7.2 fL (7.1-10.7) [facility] NEUT % 73.3 % (35.0-75.0) [facility] LYMPH % 16.1 % (16.0-52.0) [facility] MONO % 6.4 % (0.0-8.0) [facility] EOS % 4.0 % (0.0-5.0) [facility] BASO % 0.2 % (0.0-4.0) [facility] - [facility] NEUT # 6.9 10*3/uL (1.8-7.7) [facility] LYMPH # 1.5 10*3/uL (1.2-4.8) [facility] - [facility] MONO # 0.6 10*3/uL (0.0-0.8) [facility] - C[facility] Eosinophils [#/volume] in Blood by Automated count 0.4 10*3/uL (0.0-0 .5) [facility] BASO # 0.0 10*3/uL (0.0-0.2) [facility] ID Date Data Source [id number] 02/13/2021 11:13:05 AM EDT [facility] Name Value Range Interpretation Code Description Data Giovana rce(s) Supporting Document(s) SODIUM 141 mmol/L (136-145) [facility] POTASSIUM 3.9 mmol/L (3.6-5.2) [facility] - [facility] CHLORIDE 106 mmol/L (100-108) [facility] CO2 26 mmol/L (22-31) [facility] ANION GAP 9 mmol/L (7-16) [facility] - [facility] UREA NITROGEN 13 mg/dL (7-24) [facility] CREATININE 0.87 mg/dL (0.80-1.30) [facility] BUN/CREAT RATIO 14.9 RATIO (10.0-20.0) [facility] GLUCOSE 78 mg/dL (70-99) [facility] - [facility] CALCIUM 8.9 mg/dL (8.4-10.2) [facility] GFR >60 ml/min/1.73m2 (>59) [facility] - [facility] GFR ( AMER) >60 ml/min/1.73m2 (>59) [facility] [place] GFR INTERPRETATION Laboratory [facility] [place] --NORMAL KIDNEY FUNCTION OR MILD DISEASE - GFR >OR= 60CHRONIC KIDNEY DISEASE - GFR 15 - 59RENAL FAILURE - GFR <15 Est. GFR calculation based on the MDRDstudy equation, which assumes a steadystate for creatinine. Est. GFR should notbe used for medication dosing. ID Date Data Source [id number] 02/09/2021 12:06:47 AM EDT [facility] Name Value Range Interpretation Code Description Data Giovana rce(s) Supporting Document(s) Progress Note [facility] WPIJNa4aBdLYOeCi67/KNQswWJDmy4TzJZwvDSh0WYwiZTYpM5YwMKP1aF1yOED9YPsGGbPqJrQrEtD6 [facility] MoJbtRImOfCXOdHncAWpZeARmwHjqlbJZbCH5LoMQ9ZGPeD01cQCQjQHRpA1MfNCG8RJp+Qu7FXEUgjQ ShMV2OHlcQ3F2yw+M28vsB/S7YIzy1h48nTP1AxbBNjuQqRrE85ac4fHj5CaNJ3Id/Uj+[place]ton+mP/Uoib [file] AgICAgICAgICAgICAgICAgICAgICAgICAgICAgICAgICAgICAgICAgICAgICAgICAgICAgICAgICAgIC SmVPLmXOJePMWxLCSrUQQzYDVpMYToZLKgDF0WONOjWZZiWEZpGVBpPYDtJRVcVQCyINDrVBAsSLLsXA AgICAgICAgICAgICAgICAgICAgICAgICAgICAgICAg YUGwIRFwAGEmDJHlBPFyCOGtURDiHCSkQIImCAYqQGAjLUOtJH2ADAZaKWBvMTKwYFUkAXOdSGOmOPTy ICAgICAgICAgICAgICAgICAgICAgICAgICAgICAgICAgICAgICAgICAgICAgICAgICAgICAgICAgICAg QQRfAJFuEGKkUIEdFAQzBJXzQV4DHEIjKGMeHQVaSQ AgICAgICAgICAgICAgICAgICAgICAgICAgICAgICAgICAgICAgICAgICAgICAgICAgICAgICAgICAgIC LpJZPrYKMeJSMbHXPgHJTsKFIsSEXcBBBcQJVuRA9FOGAzXWOdBDHsWAHaBFNgOEIuKCOgQSUvNHJeJK AgICAgICAgICAgICAgICAgICAgICAgICAgICAgICAg CGAyDBFyPNGpWZLcYXQvMAYmOVVtLPFlWNJcGEHqLXFsRVZpYRAkHF8OGXUcATVxLKOmVXVdRRGgTZPq ICAgICAgICAgICAgICAgICAgICAgICAgICAgICAgICAgICAgICAgICAgICAgICAgICAgICAgICAgICAg ACSaSDWsZJArFRVaLUBxKUFrVFTpQE6XDNUfITHiVV AgICAgICAgICAgICAgICAgICAgICAgICAgICAgICAgICAgICAgICAgICAgICAgICAgICAgICAgICAgIC ScZDEmJOPmJQWwWLWvVWAdCODwYZEeSULwBKDkFQLgBQ3MAKUiVYSaSZHxMZElVLNfIJXaOEAoOQKpAK AgICAgICAgICAgICAgICAgICAgICAgICAgICAgICAg DIGrGPViMTBuIFCsSCBoYWFqFXVqSGJnGXVsKCVtIKYtTZKrZVQhZEJwDT2ZTHAxNSZwNEDuVFHxRSHy ICAgICAgICAgICAgICAgICAgICAgICAgICAgICAgICAgICAgICAgICAgICAgICAgICAgICAgICAgICAg EUCeLOMgISZbCXOqXCOoYQUhXGEhBWAbMK8HYGDrJK AgICAgICAgICAgICAgICAgICAgICAgICAgICAgICAgICAgICAgICAgICAgICAgICAgICAgICAgICAgIC McYHEeBEXjVOLlWHBgBOQoMPVmZDHdTFYkUSNxBBFhIVOrRF2WEX67tGUvd7Y5RLFoDQ5jphq/Pg0KDQ okiwCuvJDoLP3SVxRzTO6jdn8BCyMqJE1ivx3ODEkW SdAjV7Q5pPJuXFCtTXQWVwAbU93zIGpsFe03MWtdWHWnMvMqBEz3Qe0ZKwIeP8thKHWsWhP0GQCgYlD0 ERWpJiM6XBXkVfYdKTWqXLGrSTYpECIIMVT8XYDdGhIbHtFkHSVkDAjdBHBYHHBcRRYrKjQlUmSzPSRr IY1ERQAhS886xnGwCPMNNf2+DQplbmRvYmoNCjQwID Vkg3XmNOa9CV1ILULhSdyho6OoIPTzICPYGCcxIJ9RECQ6QMAmHCHtTw6EZQZzA390hoVcQQ0ZLx1EDj CqPO3uix4HKSNyZLIpCqsYPtj9XZsoFS0LwFMvSNmAdr4xuqTjurTSd4GpjeJffPCUoQL1m8PlTJQMiH DvDyNuTNXYODA2LJlrGo0hEKNmKVH0LmH9IMCTPT3Q FYTxSBMktLWbNMMxFKZNQT8RQNokHQD9SXUzjcWbkIRoEEwuHE8USPOaneNzFPDpKCKPMZy+Ea0XDL5o e4DqPNj9DlFsNV1qxt3CAOpOHfYqC7D7sYHsR3G2IRkmDf7PMCEtIEVgLkthWAIFGZlkYA9LKG3ccdM2 RL3YbLStWRFpJINlwTWpGXw4I89qiZStIQboWW8DID A+Janeen+Wx2JQNNqEQCrSUPgBdBmEEWPTmNjX9KuL2ZRm2YtG1VeVU93ySprpqVaBFshQQ1UKC1oGWDjBN LAQQ3YhTYkhC6oakM4DMUlPFCNGvNgX11fdESrVDXpKDP9MVElXw3NSYHpQ5QgvnCcnVqhmpCyOOUtAG AYVA3HEEhpfkJaaRKizEwnQH68yCkvRF7BMc6XPqZw BQ6fwk0OjPRxRv0WBFR2Zm6EVZJwZFBvTEFkZFX2PJFxUrAlIIpfFUBpZMXpVTK7FPFfUQNyWZ7RQbHm OAUhDJR0XpNkHTQdSGXkcg4QZJGdQNG4DrV5XkNgLLFjAJIuOScuNUUuRWQtEUU4PNKiHZJdJJ1MIePg YZPdPJSsKZhrEDNiWAQcvi2WHLTbULIqHoSfBGBeJJ MmOJNcALzwNZEgYAQ1JRM4ZDJiRTKiMN3BTvTzZQVqJWRkDHMuAAJlJTKmsv2UKEWvOBMrWEl0WhDsAT XaXGUiKPmrQZLmIQT1TUG0QBRpAWSlKF9WYyKyBAWvQFObLKSaQDXlCCJwvy8PIBCpRPGkAQXmDVTtET CgYIIsIZapYAWrMKO4KTPaDRFnJRXqPW1MQiWxYDYn BTN1UrJuUFBySZIelt9FKPQzDSYjSPGcZmOzJUZwIVXvOUpjYMJgCBR6MoJ7CBLvCLDiFE8SDaBdNMJr JpA7IerrCLJiUUGhuj7IKOCqAOMgKAs8AdIvHWOePHZwWAhnQYSpKIWdNPikTLNzELTuGQ9XTiDdYHTb IoGgKEicGQUgYLCgid5PYUZjPGMkNmR6VSQmVQMaGP PhNUcwOHEaPNY5BgM8QMIfUBOfEU7RJyFrDZOmAvr0OtMtCVVwKWWumo3IJMCcGEQrTON6HTFpZRTsAI XzRSecUUYmWMBwABItIDWhARUyMK1GFbKhWUUuZgViVHkyVXAfFIShit1BZKUtJGInJJP3LJMeUEUsXT TeGDcrUGSiPJDdGMP3YQDnVPXhRR3DEoAgQAYmGoD5 IKAbYJSkSDVmkf4AZIIyLWRvHCdbZVXpLINsJGOpWMsyTLBpDHGhLbK0JAOjGMUtUW0CBvNvKVRlLVJ5 LXAnBWBaJXFtaa0KDMUwJGZ5Lqf7RdKqJUBaMGGrTKmiFJOdKBA5QLZcUHMlPGCkCU1XMhUgIHYtVJNk FChgDPPsZCUrrr5CQSVqPMD9ZYCqKqLhYJYlQDRuWR cgGIYzKWD4IlEqJHQpPKOdNZ7QMvFaBSPvELN1BRyfJMAdARNbvv3ONGChCVV0YQzrAiSnIFTkQUEzVJ euPGXmEFE8XVB8HVQkAGUlHP3LZhJhHNGmSHl0HWiuREOnFSTjbq9SZYWxGWP4PqQzKvHiCCGqFDZeSU l2cgByzEHtJLa6OG1SG6VmcwXuHQSYIl7Rr552VRQn OLBzKr3EG5fsRg4dETZgBWMYJu7RKOe8VjS3SJJiZeZ2ZjO8WOH7MSSzAYHdHIJyMnLnGTy9H4N+IDwy PTR6XSZcIbRqAVK6SFmsVKIgB5CfC7VyBbBaOEv4Vg1bJOOTZk3+VVuynAZvyFpyIUCPHvF9HTofRCqy XHTOZx7K ID Date Data Source [id number] 02/08/2021 11:53:26 AM EDT Laboratory [facility] [...] - CORE MPV 7.2 fL (7.1-10.7) [facility] - [facility] NEUT % 70.1 % (35.0-75.0) [facility] - [facility] LYMPH % 17.3 % (16.0-52.0) [facility] - C[facility] MONO % 8.1 % (0.0-8.0) H [facility] - [facility] EOS % 4.2 % (0.0-5.0) [facility] - C[facility] BASO % 0.3 % (0.0-4.0) [facility] - CORE NEUT # 7.0 10*3/uL (1.8-7.7) [facility] - CORE LYMPH # 1.7 10*3/uL (1.2-4.8) [facility] - CORE MONO # 0.8 10*3/uL (0.0-0.8) Laboratory [facility] - CORE Eosinophils [#/volume] in Blood by Automated count 0.4 10*3/uL (0.0-0 .5) [facility] - C[facility] BASO # 0.0 10*3/uL (0.0-0.2) [facility] of [facility] - CORE ID Date Data Source [id number] 02/08/2021 12:28:59 PM EDT [facility] Name Value Range Interpretation Code Description Data Giovana rce(s) Supporting Document(s) KEPPRA @ 8 ug/mL (5-30) [facility] [place] - CORE ID Date Data Source [id number] 02/08/2021 12:52:00 PM EDT [facility] Name Value Range Interpretation Code Description Data Giovana rce(s) Supporting Document(s) SODIUM 142 mmol/L (136-145) [facility] - [facility] POTASSIUM 3.7 mmol/L (3.6-5.2) [facility] - C[facility] CHLORIDE 105 mmol/L (100-108) [facility] - [facility] CO2 28 mmol/L (22-31) [facility] - [facility] ANION GAP 9 mmol/L (7-16) [facility] - CORE UREA NITROGEN 17 mg/dL (7-24) [facility] - CORE CREATININE 0.79 mg/dL (0.80-1.30) L [facility] - CORE BUN/CREAT RATIO 21.5 RATIO (10.0-20.0) H [facility] - CORE GLUCOSE 60 mg/dL (70-99) L [facility] - CORE CALCIUM 8.7 mg/dL (8.4-10.2) [facility] - CORE TOTAL PROTEIN 6.6 g/dL (6.4-8.2) [facility] - CORE ALBUMIN 2.8 g/dL (3.5-4.6) L [facility] - CORE GLOBULIN 3.8 g/dL (2.7-4.3) [facility] - CORE ALB/GLOB RATIO 0.7 RATIO [facility] - CORE ALKALINE PHOSPHATASE 91 U/L (45-117) [facility] [employer] - CORE BILIRUBIN,TOTAL 0.3 mg/dL (0.0-1.0) Laboratory [facility] [employer] [place] CORE PLEASE NOTE:Total bilirubin results may be falselyelevated in patients taking Eltrombopag. AST (SGOT) 26 U/L (11-39) [facility] [employer] - CORE ALT (SGPT) 44 U/L (12-78) [facility] - CORE GFR >60 ml/min/1.73m2 (>59) [facility] [employer] - CORE GFR ( AMER) >60 ml/min/1.73m2 (>59) [facility] [employer] - CORE GFR INTERPRETATION [facility] [employer] - CORE --NORMAL KIDNEY FUNCTION OR MILD DISEASE - GFR >OR= 60CHRONIC KIDNEY DISEASE - GFR 15 - 59RENAL FAILURE - GFR <15 Est. GFR calculation based on the MDRDstudy equation, which assumes a steadystate for creatinine. Est. GFR should notbe used for medication dosing. 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/MjMldEhWurVbv4889UEt3osKDDP7/Py1nfOIdnt5cF5FSrKUkcASS1KtS6eX+SgggQ9OVSP2BdRe [file] dGE+DQogICAgICAgICAgICAgICAgICAgICAgICAgIC AgICAgICAgICAgICAgICAgICAgICAgICAgICAgICAgICAgICAgICAgICAgICAgICAgICAgICAgICAgIC AgICAgICAgICAgICAgDQogICAgICAgICAgICAgICAgICAgICAgICAgICAgICAgICAgICAgICAgICAgIC AgICAgICAgICAgICAgICAgICAgICAgICAgICAgICAg ICAgICAgICAgICAgICAgICAgICAgICAgDQogICAgICAgICAgICAgICAgICAgICAgICAgICAgICAgICAg ICAgICAgICAgICAgICAgICAgICAgICAgICAgICAgICAgICAgICAgICAgICAgICAgICAgICAgICAgICAg ICAgICAgDQogICAgICAgICAgICAgICAgICAgICAgIC AgICAgICAgICAgICAgICAgICAgICAgICAgICAgICAgICAgICAgICAgICAgICAgICAgICAgICAgICAgIC AgICAgICAgICAgICAgICAgDQogICAgICAgICAgICAgICAgICAgICAgICAgICAgICAgICAgICAgICAgIC AgICAgICAgICAgICAgICAgICAgICAgICAgICAgICAg ICAgICAgICAgICAgICAgICAgICAgICAgICAgDQogICAgICAgICAgICAgICAgICAgICAgICAgICAgICAg ICAgICAgICAgICAgICAgICAgICAgICAgICAgICAgICAgICAgICAgICAgICAgICAgICAgICAgICAgICAg ICAgICAgICAgDQogICAgICAgICAgICAgICAgICAgIC AgICAgICAgICAgICAgICAgICAgICAgICAgICAgICAgICAgICAgICAgICAgICAgICAgICAgICAgICAgIC AgICAgICAgICAgICAgICAgICAgDQogICAgICAgICAgICAgICAgICAgICAgICAgICAgICAgICAgICAgIC AgICAgICAgICAgICAgICAgICAgICAgICAgICAgICAg ICAgICAgICAgICAgICAgICAgICAgICAgICAgICAgDQogICAgICAgICAgICAgICAgICAgICAgICAgICAg ICAgICAgICAgICAgICAgICAgICAgICAgICAgICAgICAgICAgICAgICAgICAgICAgICAgICAgICAgICAg ICAgICAgICAgICAgDQogICAgICAgICAgICAgICAgIC AgICAgICAgICAgICAgICAgICAgICAgICAgICAgICAgICAgICAgICAgICAgICAgICAgICAgICAgICAgIC CqMLRgICJfQDVlJFYkVDCiIKVjJJZkDDy6R6geTFOsTEMnEW5iPOx7De2+GApYTlDzAED7trYncC6YVH 8vh7MxYNhzFJRuh5DhKOe4QA0CSFUpNWjzTU4XANuq xn2FKXBwYGGabOAZt2wtDxSjJPO6QOMkUvwnFE4XJNWeN9btfnEgRSKqFFRZHYgbOPGMKGypBBUPJQOh CTCzNbWqHyQgRDGkWH0HIENuX205bsJrYN4OFl9DSlWsYJ1qvw0IVhFgWUMrMobMBzh7EQkcYX7QwKWb yQWsOIScEILIOgZgM2pnf2BmIoEvLKEFWWpkCR6Ns3 VudCAxDQo+Zm8ENI8ra0TxUVzgCHUqFV8pof6HJKvADiEzC9MezIfoKEByu5KcMPLuJWPThO4cPJK6SD J0FLA3GQQfQS2pCZWZFJapclWakO0hHMbiHTVhAGJpHq3yTq1nWWLcEYW2NjDeTNVSDV9TBEGpJOOcpF ApVXVkKBJUBP9TJGuoQRZ3SGIyroIdtNItHUsbGG5L YXJlbnQgMzMgMCBSDQo+Fp0PJQ2mr4TwOEmpUAKvRL4gok5KJIiWHdGvB8A0gCDnI6T8IFkiHg4XJDPo VKVkSkKlJDPVNLtwJN6DWP6ltrG6GD2JgDSpNBUhJFLiyQHoIDb0H87zyYVeTEvcVE6BNCG+Janeen+Pg0K WDSvIYTvMZZyGvSgYHLVZrYaN6VzM7VEi3FwS9RoKV 63dCinzsLcEIbtOT6JUJ0pYCCdJBQCJI8XbKSdsL0fcbPyTsMpVRNWRvZeK29rmAYkVXFsHFVaRHDgAx 4UOEHeW3XbruYkqLtijvNmUAHfCZHHTB1WCPfzzdUniMWpxPnxWQ48fTqlSZ8EKm6IPuTbIT5zpf1TcU IjLj4RIJQnLd7JLODpCEDwUHOiUDG1EZIeSlQnFWte LKBgQANyQPW9GEQjLUBkGC3RSoFtCNRcYwDmReJjNGOnKEOwzu3ZWMGyZXGvNKIsUTMbOSZpFBFwVSxf PMAuPJFgJZG3QCYtECZbZJ6BVbAvMWYiYDWrCabrGHKvPYJuol9OWQBbRFAbLuF0GyZiNMOoVVVoTCck MWItOCV9AAWfACMaGMAlGL0FYyDuUHKxDXPeVQwaLB LuCZHpuv5KYIJoZGVeOOFkQyQoNDZgDSScLItmPXIuDHZ9QsM1DGUkKQMwCR1QUlQuEGAbKIP8RmijPJ VpOEPina3TSNHgOAXpMNK8QAEqLJYsGQQlBVdiMJPmNDHhPFg7SEIqXKSzCR3JJqHxZTJkDUJcDVGkMY SkRHZpqg9NXWElLCQrZvF6OIHdCTPnFFAqTTzdZMIo KGNzLfK2YSZzOOFfJE4LZdRfNYNrWSQ3RNNpEEXwLPJhiw0NRXAdDVGrLVA7DOPxZFJdUBTePCwwOAJj NDI1CkYiSDFaABUuUJ1WQsWtDWEhQVW6RZtoMZHwFFOqwe0YXFNaDHVfEEe0WCNuAFOfOSQyGLgfCFRi OKZ1OTEbIGFpLFMeLW7WLrUuLBWyRYTuDthyJLMiHW Pozg7JXNGkACLuTiK9OVZjXYAdTNGxUMeuOWZxAUG8Nwl8RLQlISGxFS2QTkAkGQOgENl0AsykKBUgVO Osbk3TQYYxCVReMbEiIXTmPFFlXGRtBQzwZLRlGLJaTlMrCEVfKWDiRC1GAhTjABUyZpX5WrCdINLuMP Byce0DUZWwGDDsDkQyKRLpVGLdCQTcVAmdSFTqMTCq BqEeAZHgBUQoHP4PSfLnHDSxBiE4BZZgBLPwLSUoow9GAJJzVIGkDTD7UNMrHHVuJADjRPhnJREcBSS9 BsV3YMRrYHKvSW0YNwKpTZMqLfK5AfmaNURrQQGlbr7ZhSHbkBzpfd9TNSoQAb1FnIpkDUN8VHzhFh6d nTOgBKOkALVSSm8HonMwTTBdJZQCTWtfBZXfEULpAP XhMVE3WuSlH6JdXMCbAKQwCpGpZCUzU9ShKTUhZyK0Q9LsNSQ6XSK9JXUmIcZrGNKnCtX0TkBmSUYwSP E4ZGU+BM8bUEx+Pv0Xo8PllyO8dzUsTIilONmpGd3LNDMSY4HPMn== ID Date Data Source [id number] 02/05/2021 09:40:00 PM EDT [facility] Name Value Range Interpretation Code Description Data Giovana rce(s) Supporting Document(s) SARS-CoV-2 RNA 2019 nCoV Real-Time RT-PCR: NOT DETECTED [facility] This lab was ordered by [facility] and reported by [facility]. ID Date Data Source [id number] 02/06/2021 12:15:14 AM EDT [facility] Service Cmnt XXX-Imp : NoneRespiratory P CR Panel : PCR ResultsMicroorganism XXX Cult : See Labs Tab for 2019 nCoV RT-PCR resultsHAdV DNA QI ADONAY+non-probe : Not DetectedHCoV [id number] Nph QI ADONAY+non-probe : Not DetectedHCoV [id number] Nph QI ADONAY+non-probe : Not [id number] RNA Nph QI ADONAY+non-probe : Not [id number] RNA Upper resp QI ADONAY+probe : Not [...] DNA Nph Q ADONAY+non-probe : Not DetectedB [id number] DNA Nph ADONAY+non-probe : Not Detected Name Value Range Interpretation Code Description Data Giovana rce(s) Supporting Document(s) ID Date Data Source [id number] 02/06/2021 12:14:34 AM EDT [facility] Name Value Range Interpretation Code Description Data Giovana rce(s) Supporting Document(s) Specimen source [Identifier] of Unspecified specimen [facility] SARS-CoV-2 RNA 2019 nCoV Real-Time RT-PCR: NOT DETECTED [facility] Assay Performed [facility] Patients first test for [facility] 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[facility] Patient has symptoms related to [facility] When did you start to experience these symptoms [Date and time] [Phen X] [facility] Patient was hospitalized because of this condition [facility] patient was admitted to ICU for [facility] Patient resides in a congregate care setting [facility] status [facility] ID Date Data Source [id number] 02/05/2021 05:45:00 AM EDT [facility] Name Value Range Interpretation Code Description Data Giovana rce(s) Supporting Document(s) Leukocytes [#/volume] in Blood by Automated count 9.5 10*3/uL 4-10 [facility] Erythrocytes [#/volume] in Blood by Automated count 4.65 10*6/uL 4.6- 6.1 [facility] Hemoglobin [Mass/volume] in Blood 13.5 g/dL 13.5-18 [facility] Hematocrit [Volume Fraction] of Blood by Automated count 40.4 % 4 1-53 L [facility] Erythrocyte mean corpuscular volume [Entitic volume] by Auto mated count 86.8 fL 80-96 [facility] Erythrocyte mean corpuscular hemoglobin [Entitic mass] by Automated count 29.0 pg 27-33 [facility] Erythrocyte mean corpuscular hemoglobin concentration [Mass/volume] by Automated count 33.4 g/dL 32.0-[facility].0 [facility] width [Ratio] by Automated count 15.2 % 11.5-14.5 H [facility] Platelets [#/volume] in Blood by Automated count 244 10*3/uL 150-400 [facility] ID Date Data Source [id number] 02/05/2021 06:02:55 AM EDT [facility] Name Value Range Interpretation Code Description Data Giovana rce(s) Supporting Document(s) Bicarbonate [Moles/volume] in Serum 25 mmol/L 22-29 [facility] Chloride [Moles/volume] in Serum or Plasma 103 mmol/L 98-107 [facility] Creatinine [Mass/volume] in Serum or Plasma 0.66 mg/dL 0.70-1.20 L [facility] Glucose [Mass/volume] in Serum or Plasma 114 mg/dL 70-140 [facility] Potassium [Moles/volume] in Serum or Plasma 3.7 mmol/L 3.4-5.1 [facility] Sodium [Moles/volume] in Serum or Plasma 138 mmol/L 136-145 [facility] Urea nitrogen [Mass/volume] in Serum or Plasma 13 mg/dL 6-20 [facility] Anion gap 3 in Serum or Plasma 10 mmol/L 8-15 [facility] Osmolality of Serum or Plasma by calculation 287 mosm/kg 275-300 [facility] Creatinine/Urea nitrogen [Mass Ratio] in Serum or Plasma 20 [facility] Calcium [Mass/volume] in Serum or Plasma 9.0 mg/dL 8.6-10.0 [facility] Glomerular filtration rate/1.73 sq M pre dicted among non-blacks [Volume Rate/Area] in Serum or Plasma by Creatinine-based formula (MDRD) >6 0 [facility] Glomerular filtration rate/1.73 sq M pre dicted among blacks [Volume Rate/Area] in Serum or Plasma by Creatinine-based formula (MDRD) >60 [facility] ID Date Data Source [id number] 02/02/2021 01:13:14 PM EDT [facility] Name Value Range Interpretation Code Description Data Giovana rce(s) Supporting Document(s) Progress Note [facility] JFCXFr5kBsMACpZy23/VZWzkHUIsz0CmHLseDSy4FDjuZEIfD0EjCOB2hN6wWQM9OZfJZiMdXfGzEjE5 lbm [file] G5RuE3SQTePCEzBQn3YFN6QyM+CR2cLXb+Xm7Cd7WxrmS8acLkUTi4ZlD4UYyqDUEEEt2Z ID Date Data Source [id number] 02/02/2021 10:47:22 AM EDT [facility] Name Value Range Interpretation Code Description Data Giovana rce(s) Supporting Document(s) Progress Note [facility] ZTJAVq2vWoTFQsYl05/JKFkiWGLzy8AxFSxoCWh2KOoyMQNxN3YoGBR3cW0uQLT5RMyAWfEkPrVbWyR1 lbm [file] HkHl8IGJC3DFOZAfOgEA8RXPg= ID Date Data Source [id number] 02/02/2021 10:26:55 AM EDT [facility] Name Value Range Interpretation Code Description Data Giovana rce(s) Supporting Document(s) Progress Note [facility] JWENUk9uEdVXCkDo43/CZRbuEBWlu5AaIFrcIGg2SWcdJSSwN6YpMZS3dS2rNEJ8ACsKBcMpIlYhVoG3 lbm [file] j8WwsbL9oaHlRLokNRE7TT4PPABBF7LQUp== ID Date Data Source [id number] 02/02/2021 08:21:42 AM EDT [facility] Name Value Range Interpretation Code Description Data Giovana rce(s) Supporting Document(s) Progress Note [facility] NGWHFq7nFcDQHgHc06/PNBsbXLKpd6QgWLllFYq5HPxhRBWsB4AmBTM4eM0qRNB2SRaAHrXgWaVsZqI6 lbm NbFmsYDoYzZQMxXosWWcMsZDlcAgntbAEpJJ1SyKF7LZYjL01fOIJfEFAmW1HtQVO4WxB+Ag5ZOXUfiQ HgGJ6HVjrL9I8HwdkUKe2CsN+mkRAMX1QWxS+6GG8siTrFBwqxzD0exSvPX0YhLRm5EszzX1tZ6ZnhxC mI6SD2jT7yRqH4eryn0gpnpCDk//9c9eBWtPm1+m/9 W4s70eIB/zX8qHugd+tpmz/FJHjAcxInLh/I//TdPz/wY/29dayv5w2z6yyuBUiLJihE3z+1Cuc3DXi [file] rpFDALEoIhPU3VXVf= ID Date Data Source [id number] 02/02/2021 08:21:07 AM EDT [facility] Name Value Range Interpretation Code Description Data Giovana rce(s) Supporting Document(s) Progress Note [facility] CMXRXh2vBhBDJfSh78/HMVdqDYNji7JmBMajBGl1ZEhiJVQlL8TnCWY4jT2aDEF2WVtTHgYjUhTtMwR3 lbm LbLuzMAiLxANPrIqhBYbUlMJnvHnttsUQuUS7XpVZ6DNMgP35bXLEeTIOnJ0TcHDH1RlR+Cw6QBSFekT QzZV5DLtkN8P9fA9pZTg+/qkvNo8KEN2IsJNdrc5p3TAKvDdeZ2nlc8jSiJl3Dgydhb8hzhd44olVx3g 9tt2wbFZTwvwxhGmLwxg7/PSONENW//4idKHAcRyz+ L/+PSa2p4ov//80ojwmjFEk8CznOVyWk4YrvH6r/pfvtA+/CHEPE+8Rdbv4opt1BuGkjdK4bPZwnaygir7 [file] AgICAgICAgICAgICAgICAgICAgICAgICAgICAgICAg ICAgICAgICAgICAgICAgICAgICAgICAgICANCiAgICAgICAgICAgICAgICAgICAgICAgICAgICAgICAg ICAgICAgICAgICAgICAgICAgICAgICAgICAgICAgICAgICAgICAgICAgICAgICAgICAgICAgICAgICAg ICAgICAgICANCiAgICAgICAgICAgICAgICAgICAgIC AgICAgICAgICAgICAgICAgICAgICAgICAgICAgICAgICAgICAgICAgICAgICAgICAgICAgICAgICAgIC AgICAgICAgICAgICAgICAgICANCiAgICAgICAgICAgICAgICAgICAgICAgICAgICAgICAgICAgICAgIC AgICAgICAgICAgICAgICAgICAgICAgICAgICAgICAg ICAgICAgICAgICAgICAgICAgICAgICAgICAgICANCiAgICAgICAgICAgICAgICAgICAgICAgICAgICAg ICAgICAgICAgICAgICAgICAgICAgICAgICAgICAgICAgICAgICAgICAgICAgICAgICAgICAgICAgICAg ICAgICAgICAgICANCiAgICAgICAgICAgICAgICAgIC AgICAgICAgICAgICAgICAgICAgICAgICAgICAgICAgICAgICAgICAgICAgICAgICAgICAgICAgICAgIC AgICAgICAgICAgICAgICAgICAgICANCiAgICAgICAgICAgICAgICAgICAgICAgICAgICAgICAgICAgIC AgICAgICAgICAgICAgICAgICAgICAgICAgICAgICAg ICAgICAgICAgICAgICAgICAgICAgICAgICAgICAgICANCiAgICAgICAgICAgICAgICAgICAgICAgICAg ICAgICAgICAgICAgICAgICAgICAgICAgICAgICAgICAgICAgICAgICAgICAgICAgICAgICAgICAgICAg ICAgICAgICAgICAgICANCiAgICAgICAgICAgICAgIC AgICAgICAgICAgICAgICAgICAgICAgICAgICAgICAgICAgICAgICAgICAgICAgICAgICAgICAgICAgIC AgICAgICAgICAgICAgICAgICAgICAgICANCiAgICAgICAgICAgICAgICAgICAgICAgICAgICAgICAgIC AgICAgICAgICAgICAgICAgICAgICAgICAgICAgICAg ICAgICAgICAgICAgICAgICAgICAgICAgICAgICAgICAgICANCjw/fTNpU0phfASzslW6D2rkWu5JIx9E YZ0jt2UdUDZjVEuxdpSeMgnKFsOgYVWaJpfYGfd3UPwyXG2CnONhZ5RxE3JuJLrdRA1QFYYnPEYkkCAq ILBgIVNnIkV1EBMpAAcrAS8McFEpHDbaUSDcZSVoUg BqIESeNHTfHPQeFG0MSURwJ630zpKqAv6GQf0TFmTtGR3dzi0AFbyqLMJmBmtIQlc7TKrlIF2LdJCtcS JbLLDcTKCNDsUiG8yyh7LcRvzvWHIDWTwsRP8Jf9GmuRPqRRs+Ga9RFL0dd0WfIBdsUXXoIZ6oae7XKQ lKEgIgT3MgcYpoBGWoa6diPVSrZY1qvPIwCOF7ELja HVWaBZFlPhWONZe4RDBkXHZJPKPsfFS5MjgrUkYpTMEdByrnAZHQJCeVGpIwP0Pdb2RmMrC4GUFuKfDn WUciFBKeWiS0SD62yDcmCX7QUMSuGYUuKW68QKD7VKDbIe4VEt8HXeQrGW4qmb5XJemuUKGmJqlEPxz7 BKxbGH8PuEElH5WfrYIeq3gVCtIgS3NNIHJ8PFOoEp 6JRIFeQyYmWQWmWFoyZW0lTLDwZXZLaErvnwN0KM0DPV3wrrFoGQ3ANkHlIo0rPx9RNlMbI8BvK8IgSB IpEKXXGEkgYN0ZBFslKW5vEA0Fh3ZGqSGhzS1cpz7VYYJyPODoLpphdq9DEsimN6Z7zWryHRVtZiahUO QFYQpsBT8CGWXpHUB7KXOoTwOsKZQEMuOnX26oUV9B J9Uzk56sVmE2DMGbBeCfEPrmGQ83ySdxjvCvyIGudAfiLP2RCd5+DQplbmRvYmoNCnhyZWYNCjAgMzAN ZpRkYFBtJAFjBCEpFeM7RrHzMr4OLUSrKQIsURLoHuUlUIVlTPVkKOlwHCNjAKB4EGrzHRHkXDIqEK7V UcByMUEhBEq6KUMwMIDdFBYrzo0DARJgJFBvXCH6Im SdBQSnJJEzHVbhBMImOZHoIKE4FIDtHAFvJW3ZAqFrJIKjOTSgBivdWCGjQBNktq5CIGFzHOOlStW6KQ UjIWGrHWZyUTwkOKUzFMX9TiY6OYEtLMWyNE6UVoZaOVLaDQizAlCyETHqQWQuph1YQUQySIJoKQUkSC FcJZZnSOVfRVriILUrULLtHuq5XCDjEPAwZE5RYgOr XSXsIKI9IBVoEEZpXVCvzj1WEIPgOZFfVGy2DKJbBDPnUEGnGCaxWTIaCCGeJhI0XEOfJZKjUN6OKrMr VNSeJOW4SlFuABLlDLSdij2QIHQvGYEjTfSuUIYbWNNhPHVzPAgcPOOtQCWoQJcpJRLvYKHoEH0WQhSw IRKeUUNmDfIcSSWwFMRjtn6LASFaQXTfXtA0UiNcII KoIGMxZCliIUIsJKN7GPXpRARhUPVoBQ2RLaCsGCZpJEZ2FgHhFXMwLMIdui7HKDImVCTlEEuiKbOfCQ OnWXKnVGfwAKGeVRU0ZiPbFZByLXCnHZ4ATtKlTOWrWTW4AgwxIQShMBCsbk2ICPArUKQsBeZ0KtUwWD MbEAOjAWatTOJkDSA8UkS3VCJzBKSoYW4EIwStAWVd ZUoiZaDiIYEuQAFotk3EMRNfKKKkSFDjCuIqYEAjEVEtLUycSMSvNKF7Ncu7UHTnEHMtTJ8BMmOwBGby YTQJTgq7VBcnC3w9FBEvGI3IE3Kic4WdDmfqXCUEVQjnAY4ddfXsDZBgRq0WW6vAVmzsDjLjUXEqK3Gm FgnbUHDuEBMiFNf0VIT7BZxjAbB9LK1xIOFzJUI4Gw FxLBLdDWR6WlR8IKShOqg3MUvhMRJvExC8LiQwDN2LLd8RRgO8MRI2rIUqGs6BKEv1FkRMFxPjIE2KMQ o= ID Date Data Source [id number] 02/01/2021 05:21:44 PM EDT [facility] Name Value Range Interpretation Code Description Data Giovana rce(s) Supporting Document(s) Progress Note [facility] JCLEJs2dEaKKMpIk06/VVKyfAZXqn7JjUVuyHQu2JMmoTMYzQ4CoIOU8gG7rYFX2QQmWBnXqHvCcQaL6 lbm VqTlpQTbEuCBLpMuoLEsTtAIsuQeyhmPQyTM4FaFX3EHIgQ08jTAVwLITbS8AxQDF2IDB+Eo4PFLGvuK TyTI0IVqdU1R5ly6rSNv3+wP2HRQ/zZPAt2s0PUa0p7CYlJntx1I7Z9CbilyF6oWnZ6xM0P6+USEp+Jv FOGsbK1gjBaA5S8g7c9Mn2J8ovuNh/+9XsxqHjOGbx b/WiuZyo8ht55N6h6w28Fh9Yl2nS1MNgRX4qVwS82cxhSoC07UlqGqSQgAlms3icLaJZ1VCGZJlgWuaK X1kg6YZ1zcvpj/lAkNxKin6bYWlLL3KFW3d+3Ax/ZDdI90OkQ0iTYrqV7456uh5QkS986evDoaEG7yT1 jft21cbAfKf3M01o+rEXih+cgddXz7D8YlFaAyqnxs tLu+OKO7n9Cb7y0kAKfuldNlFsP5rxoZ7pueZdbyAzo+S5o0SR59pAq+npbnLgq56vxYXI56kfNdmzFq Gh+WJrpPH1GV5WT2N6yoHfWrqaldxfbv/f8X8D0Q+Kqa0m+NLxC0l3n1DyWE71TT/NniaroYNoOfRRdm 3hlP8aFeQtxNt7N+++kohLncnYR74XG8kpEf94BqLg v2oKw/Fazal+2KDkW91tJNsLubBIPA0uCeRY4C4DKuSCmeRYy+OPOQ43NbQccZLwzB4vqOQEqbZIhtx+Tc [file] 2rWUYTCq7+VHofoXNczUhvZVBQTydjFwBDQoYyEP8LQBy= ID Date Data Source [id number] 02/01/2021 01:54:37 PM EDT [facility] Name Value Range Interpretation Code Description Data Giovana rce(s) Supporting Document(s) [facility] UERTYr2kAmRSXmTz78/HLEdtOZRoe9YiPLcdMEw9JPuiPFRjE9AzNAE4qK2xDOA1NXpCKtRrRnFuOeA0 lbm [file] WzSOQ4KJHmIeWaLnCbTMLpGhzpJa0sUMTEWf6+XNbftQRcdDizUUDCOnw3OObBIgCqTQ8SWZq= ID Date Data Source [id number] 01/31/2021 04:29:59 PM EDT [facility] Name Value Range Interpretation Code Description Data Giovana rce(s) Supporting Document(s) Consultation [facility] GVFQLb0oTmGBYuEu25/FHSilQJUzo4YkIRkrZAl4ASktIUGrU7YzOLV0aG5gPHD2RTnTJgCnPaIwFeA0 lbm [file] AgICAgICAgICAgICAgICAgICAgICAgICAgICAgICAg ICAgICAgICAgICAgICAgICAgICAgICAgICAgICAgICAgICAgICAgICAgDQogICAgICAgICAgICAgICAg ICAgICAgICAgICAgICAgICAgICAgICAgICAgICAgICAgICAgICAgICAgICAgICAgICAgICAgICAgICAg ICAgICAgICAgICAgICAgICAgICAgICAgDQogICAgIC AgICAgICAgICAgICAgICAgICAgICAgICAgICAgICAgICAgICAgICAgICAgICAgICAgICAgICAgICAgIC AgICAgICAgICAgICAgICAgICAgICAgICAgICAgICAgICAgDQogICAgICAgICAgICAgICAgICAgICAgIC AgICAgICAgICAgICAgICAgICAgICAgICAgICAgICAg ICAgICAgICAgICAgICAgICAgICAgICAgICAgICAgICAgICAgICAgICAgICAgDQogICAgICAgICAgICAg ICAgICAgICAgICAgICAgICAgICAgICAgICAgICAgICAgICAgICAgICAgICAgICAgICAgICAgICAgICAg ICAgICAgICAgICAgICAgICAgICAgICAgICAgDQogIC AgICAgICAgICAgICAgICAgICAgICAgICAgICAgICAgICAgICAgICAgICAgICAgICAgICAgICAgICAgIC AgICAgICAgICAgICAgICAgICAgICAgICAgICAgICAgICAgICAgDQogICAgICAgICAgICAgICAgICAgIC AgICAgICAgICAgICAgICAgICAgICAgICAgICAgICAg ICAgICAgICAgICAgICAgICAgICAgICAgICAgICAgICAgICAgICAgICAgICAgICAgDQogICAgICAgICAg ICAgICAgICAgICAgICAgICAgICAgICAgICAgICAgICAgICAgICAgICAgICAgICAgICAgICAgICAgICAg ICAgICAgICAgICAgICAgICAgICAgICAgICAgICAgDQ ogICAgICAgICAgICAgICAgICAgICAgICAgICAgICAgICAgICAgICAgICAgICAgICAgICAgICAgICAgIC AgICAgICAgICAgICAgICAgICAgICAgICAgICAgICAgICAgICAgICAgDQogICAgICAgICAgICAgICAgIC AgICAgICAgICAgICAgICAgICAgICAgICAgICAgICAg GOPaYUOcBZIvSVRwBOYjMUSeYARwKFBtFWEmQHEhJPLwJGXdCBAoIBHqUFSxAAWjTRVfIYs9X2haSZAe QZQbSQ6pSBe1Iu9+KXhPJuSgFQG6riTcuF3DDN1mx4VoGSqiZHTiy4BpDMs7KF2HFGPiKRzlMW2IAOiw ue6IPXNuMLKswLSIb3gmMdGzQCS8FWNeMajjZL1ELX XdD2lsgkSkGTAlHLQFMX9EAxKpH4GvzP41DCKJIr8+MOihqjGuZcqMHvA5NIPzj0GgXTl0XV0SCZUiMz tel7LnFKMrWAMFRIpyPO0NVMA1QLR5SMTtPa8QZTTpP833vrQoLC9LEy0MYuVvQB5ddd0BPYNtAUXwCa hKVww6YQxdLY0OsCLvKDkXl92pfQu1keGxgLNDRRYv ZE0qBCKQz3PgewS2GOqxRVPDIAEFUZA4KQfwRc3eRBGmZBX5GgL7TSBEYA9MXAHqVVAgsBWwZSJyDDLZ ON9ZQWewEVS5PEAzevSdsEFuHFyeNK1ZIAJprjQjXRSnVFZLPDu+Ln6QOF5dc9JnRUpjBhNzSZ9qzo1L TEiMRfXgN1C6nAMeF3J2TWysPc7OVYNcRKLsXHLvWI LJRIhaRD4BSW6izeB8QK4UiMZtNXBqUREqbGPpNLp2W98rhBPxMWkmUY0VAVK+Janeen+Fi2UQXOlHKItFZ IrOuFmJALWDnZkC2BdF9HJf2ZtM4WwIN97oOpqhwTvFJpqWD9YOS9gTWQjGHSHDJ9WiCPnwP1vwzFyZU DcAAUSVhPvT44ioRScLGIqTBKxWBDfXt7DUVRlP7Jp dzYssDvwyoGuGDAoFJEJSG7XKMcvmjSghXVatUhtVI01cOwlOU5ISn9UCuRnUI8xjf2QoSSbNc5AUECq Xr7BRUCyQRUiDSPnYFI3ZVIyQxFaDIbjSOQnVWQkNSX1UUEzSBAcOF5LJiMhBOZcCCWcWOZoKUYrSFJb kj9TYJRgDLAaGxx5MZMkFVOoXDHgNUyaMXBoWWAxNA I8ENWaYWLoXJ3TRaUiGBLoACBsYtVkFYJzVBNgwx3GVXViQBZbYtJyKXFmUADbDFHtAPuzXGMzQLEtZi g0TBBbZOGdGH7ZNjWwBGErKLA1AGChQDJfYWFqzz6QHKBkYBSzJuW1MHXtBUDjGVIdDNtcIBCeSOH4Ue H9FOSsQANjDC2HJgXiSNJoZIM5NiKsGBOyNFOyjm3Q RJQgLIZjEUWsXrWrZDFjVTMwQNlpONHgPSY7QMByXNJuRUDeGP5LLxTuUEHfIZZ3ZWoiMONqCMTqgl1D YWXrBILaBhwxYFMlKDDhFYOoXTckFICqFCN2OQs0MCObDAEvDU7QUjZkFZqaGCGHNee5FJmjC1x4EHQh Qv5PU7Slp8VsADPhWSHKSCgdZO4szuNiZQEaLz2NU3 dCWisnUCUvMMCpRCQ8OpssCDMnPeCpUPQaJlK5GrB9IIG1Qf7tSIWyJVH8ZBFjTOD3NmGbUsNjD6H6Wa CcFOulUmKxVjU0EzOoLC0TCb9QYiF2KFG8aOIdUj8WRzUyWv1NXJGYB6BHTk== ID Date Data Source [id number] 01/31/2021 03:54:26 PM EDT [facility] Name Value Range Interpretation Code Description Data Giovana rce(s) Supporting Document(s) Progress Note [facility] ZLPCZm7iYhEKWmXh49/YYLdcWLMhh5KvPFyqKWk4JXcnAABpS6KvQTO9fZ7cAFL6ZExNCtDcVcMyDcP0 lbm [file] ICAgICAgICAgICAgICAgICAgICAgICAgICAgICAgICAgICAgICAgICAgICAgICAgICAgICAgICAgICAg TRHyAECnPNTuJK3WFPGrDNQtNQGfZJGsOIIiTZYyJV AgICAgICAgICAgICAgICAgICAgICAgICAgICAgICAgICAgICAgICAgICAgICAgICAgICAgICAgICAgIC WxPTUuUBZcNYCaOYKlXRZpYKCqHF2GXTPwPCCmOKQhEVMrFABaQWDyEKYbXPGjKTTdBCRhIOQySUXxWD AgICAgICAgICAgICAgICAgICAgICAgICAgICAgICAg GIFwLTXpAMAwVQRgBSJgRNUbMAWlIWIiUEXqSWIzQN1UCAPmREBsVFGgOJZsQWZlNOLjWIPdRRSdFBSn ICAgICAgICAgICAgICAgICAgICAgICAgICAgICAgICAgICAgICAgICAgICAgICAgICAgICAgICAgICAg SWWzNFNgSJZnSZIgLG8MJOLfHYYaBNPnLAKyNPHtOY AgICAgICAgICAgICAgICAgICAgICAgICAgICAgICAgICAgICAgICAgICAgICAgICAgICAgICAgICAgIC OpZWRpPTLcMKWlFEYzROJhRYGfLFFqEK1PEMLoACIxZDFtOVEnCNLaIYDyTNWiPVBrRJWpHMTsQPTtWV AgICAgICAgICAgICAgICAgICAgICAgICAgICAgICAg UPGpLINtQKQqJGQdCNSmUIHzYHCiZCDaERFdCAYtKPBmKR7TWJTzQDDgQBCvMRJfMDDrCBNeTQIcVIVk ICAgICAgICAgICAgICAgICAgICAgICAgICAgICAgICAgICAgICAgICAgICAgICAgICAgICAgICAgICAg QXRjBVXpWEAtZZSqVDOwDX2WWTHmFWYnXMAoYZGkQH AgICAgICAgICAgICAgICAgICAgICAgICAgICAgICAgICAgICAgICAgICAgICAgICAgICAgICAgICAgIC AqVKEiLPIpLEDvOOFkYJLaQBSaNHOoDHUdCU0JKUXyOCYhHOKoDVMpKIEyCPMaDHAfHOOiHTSjVPCpST AgICAgICAgICAgICAgICAgICAgICAgICAgICAgICAg APCxFJLbDMFcFYNlNGMvWRKfZHXoWHJoEFXtQTMsRUPsZMUlRJ0PPPYoAGPtPIHiXACzADGxNTBsVJUd ICAgICAgICAgICAgICAgICAgICAgICAgICAgICAgICAgICAgICAgICAgICAgICAgICAgICAgICAgICAg PPVhINDmTZSyDTFhODQdVRLrTP7GNT05cBLsa5V8LC XjMB2nyhj/Nq6NDPntcoLkoZHvLV5WExJkPQ8xdi2NIjTrRX6slh9RMEgNMxWyK9V5rUQdXJKiNCRFFs PnW10tJAumTu84LObgHEQsPbDbALw5Yk2RPcFjF6leRCKdCrC2UUQaGhIaWTuyTJ4Si3MtyZZsOCd+Pg 8ZJL3fw9JcNRcwEQBtEY9kak4BDIgDEbTiU8BxukL6 YMJ0KWSrCi5KXUNeGZWauANgIFYzEFEAHxUhT4WviM67PGYRFi2+MXkuanCkXbvAGkK5IGVmc1JcUHi3 RP7HVQFsNXt6cMEtFWGiQ0Gtb8MjRu43WQMwUhkoKAYwoDRuoMguFFW8sVKkDPZABLM6UCykFu9tUVIn WYUrDzJeFTCPTI4PGRRlKPYvqRNoCORqFUVZZY7MWQ ikRQS9LMBuayWenBXuWYebVI1ASCJcktEsTNNuLZJYABj+Nx0MXN6id8CuLCffNoTrYR4cyt6MCEfKPs YlP0M9wYUiZ9K3KLqyUd2VHVCwXOJtAAWbBGPGJKmlLY0FUK2gkhV8EE5FnVLqZMMkAQKzjJFvKAu3T8 4xzKArUHufCS0DKGW+Janeen+Cn8FSMWuUSKmDXSoFvLf OLJKUgNbX0FsD0OPz2VkT0HhJM54jMejpdLtDSqtSA2XJU7vMQXhYCQVUT4VnLOozM2vbeEqKXFgJMBA KsDaZ48vdMDvPXAhZNNeHMQaSf0JIETuG5PxczPtiNfvujGgFCFpMBORHH9JSNmcujOiiXSqvRtmIX28 eOadEI9FJy1GCaAmQI0biy1RdXIbFq2IETXjKl5GYK AkCQBgNRLwDQN1JEMePnDkAOtjMJSwXRXxISE0XEDuOLUrFZ8MXjTxLZMdSSC4SpMxHNEkKPUyhi4UBR GpETLzCuL3WpEqYIQeFLDvEUboEIOnQFJjDXQ1MUYsLYUcZO8IHkSsBQZxWSA8QHOjOXLrGRIynw9WVN GbNRVnSXvxZrSjQCXcEFQeAMciZZEiPTHqMuz8SYOv QPIcJN5GTnLrBXKzMJK4JqVmWQIwXAWhke0QEIIcBBRbDeN6VwEeWTExCKLmJCztFWAaVBX1RAOxDGDx JAMqAK5LMsXvHMHhEGMgZMBpVIItMZSxzf2CQEXsSPFrJNT0VFYyJYUfKGDoPIruBCGuPFE5JSLaFIMg YHOzEU6IAjDhKEYzOEEaYYBwZCTdYVHwol5NNDCgMZ MaMfHpDtKnZBHdLNWjHPfiUDZcJPP4VMRlWPOyXJRxGL8JGbXyWSpnULPOOza3NPorT5m2FPZfIq8UP1 Zzw3KtGDYiELNEQUydDG2kfcMxDJLtHw5VT1nODrmoERUbFxB8YFV2ZvxcGZDlTRFoHQWwEHDtN6CtLX ckIV7uREZ5CaM2FSwrDzQnBuRrKjZwBVA0EMSeLfPq C2DdJyS8RhSyMG5XYq7DYiU0UEO2rTXlNg4XCcgoCX3QAUWDR5TMXn== ID Date Data Source [id number] 01/31/2021 02:11:55 PM EDT [facility] Name Value Range Interpretation Code Description Data Giovana rce(s) Supporting Document(s) Progress Note [facility] DVXVEe2bDpUSQmGv83/QEMveSMIis6KqFVmzAYe0BErrWIXpT5FbGXR7oE0eMVL1WVaXDbKeLxTrZlX0 lbm [file] U0W5F7UVOlMWu8WcMdJSs+FE5aIXp+Kq8Mv5XuwrI2fqCiCCkqJIvqQE2MRFPCQ3TONj== ID Date Data Source [id number] 01/31/2021 01:52:52 PM EDT [facility] Name Value Range Interpretation Code Description Data Giovana rce(s) Supporting Document(s) Operative Note [facility] PRFOUn0iNdCFLuOe55/WXTzlFSAao0TyYUabXJr2QIqvGPPwG7FfUYF5dZ0lCNC0MGzNJsNsQjRyQdH3 lbm [file] ICAgICAgICAgICAgICAgICAgICAgICAgICAgICAgIC AgICAgICAgICAgICAgICAgICAgICAgICAgICAgICAgICAgICAgICAgDQogICAgICAgICAgICAgICAgIC AgICAgICAgICAgICAgICAgICAgICAgICAgICAgICAgICAgICAgICAgICAgICAgICAgICAgICAgICAgIC AgICAgICAgICAgICAgICAgICAgICAgDQogICAgICAg ICAgICAgICAgICAgICAgICAgICAgICAgICAgICAgICAgICAgICAgICAgICAgICAgICAgICAgICAgICAg ICAgICAgICAgICAgICAgICAgICAgICAgICAgICAgICAgDQogICAgICAgICAgICAgICAgICAgICAgICAg ICAgICAgICAgICAgICAgICAgICAgICAgICAgICAgIC AgICAgICAgICAgICAgICAgICAgICAgICAgICAgICAgICAgICAgICAgICAgDQogICAgICAgICAgICAgIC AgICAgICAgICAgICAgICAgICAgICAgICAgICAgICAgICAgICAgICAgICAgICAgICAgICAgICAgICAgIC AgICAgICAgICAgICAgICAgICAgICAgICAgDQogICAg ICAgICAgICAgICAgICAgICAgICAgICAgICAgICAgICAgICAgICAgICAgICAgICAgICAgICAgICAgICAg ICAgICAgICAgICAgICAgICAgICAgICAgICAgICAgICAgICAgDQogICAgICAgICAgICAgICAgICAgICAg ICAgICAgICAgICAgICAgICAgICAgICAgICAgICAgIC AgICAgICAgICAgICAgICAgICAgICAgICAgICAgICAgICAgICAgICAgICAgICAgDQogICAgICAgICAgIC AgICAgICAgICAgICAgICAgICAgICAgICAgICAgICAgICAgICAgICAgICAgICAgICAgICAgICAgICAgIC AgICAgICAgICAgICAgICAgICAgICAgICAgICAgDQog ICAgICAgICAgICAgICAgICAgICAgICAgICAgICAgICAgICAgICAgICAgICAgICAgICAgICAgICAgICAg ICAgICAgICAgICAgICAgICAgICAgICAgICAgICAgICAgICAgICAgDQogICAgICAgICAgICAgICAgICAg ICAgICAgICAgICAgICAgICAgICAgICAgICAgICAgIC XmLDDyPXEnCWSrJXVaQMHeUQTdCJYaXEOpJVSyWUOuXJBpLUTvAUHoFNGdGRBbWXEuNQv4W2vxFRSdXZ EbGE2eFYc8Vy6+ZZlJVzAbUXS3yvQnqR6QBD5zm1QeAMtoSHJcu3FvCQw3BD5OTLFyHWoiBO0NVGrgtq 1OTAUlQLPbnSOAe4mjWdSiBOO7FTKlIvhiCN2IMIFl M8tznuTrWMMtEBRIVVybELPBNZibOIFYFL0SBrYlM4LdxM39JYLKXw0+YHurgaTlLrrJKsIoDJByn6Qi GFv9UG1VTEIwQnpgs3OeCdOkBIOSORxhVD7UATM0HLQoRIHeAo3FQCYyJ261ofKnZO0HGy0RGtWfAY8p sr6ODiYnDLSxAdgITal8PLnoHT0TkFIkEAyHkYHdRO KupiKeRd66YFLeyTAAL678nDHOXGPbgpLzgNwnphU0aefjXH1YDIY1CVafHc1gGITbUEW0GeM6YHEOVI 8NTMGnWWYfbDBsWOEdIBWIUH2XAQxjUKN2XCCzvdFgbLVbMJlxWN8NWSIozbTzGxXpDCSRAFe+Pg0KZW 1in5PiSFzqLeAwVP4yiy2JWPzYBeUaD5D4kPYcO7F1 RKajVm6OEFMbSKUlWPqyDPKCHHekLH6ORF5fzsZ2NE0UvCEeOBQaROCioIIgQXx2I58iaVJnXTpmTN4W ICA+Janeen+Um8IIMQgMSBnOUYtRnOsXXHZYlXcO0CxP0ISf5QoU1IaVW01aZatxtUeFSiyAN6QML4xZJPo EDJPYU4XwKGbyE6dfsZxYDGyUYSCKlVmW91gyLBmIR VzAFWhTUCzXx4WCJGeM7VdfmDpcUbayeGqMPZbMRIMNK3AZPbqzvUhmRFcwJsjCS33sGxjWX8TIi2YVl ImXW2pgy5NgCAdMy1WDXHuTR1YANEtDHYwRQNiSLO1NWWnSfEcCPmpXLFpVODjZPV6AHHaQSSmSY3DUz HmBYJsRNR7YSnkATHoGSCzhf8WSDVwVSOmWYF8DDGz WSZiZJBwPJelKIOvQPAnXCX2CIWkTBRnMO3RUgArNWObGZShYQlzZWFoTJNihv0EQNJaWVLtInP3FfCy CXRsLKNrITqdGXGvGAL2BWQ2VCIxZYTdFJ1RGtJkTKYgLNY7JXIlUVXbPLYvbl3OJEGhTLCcDQN1OQBi GFGlDCPrVVqcUTZkOFQ9POekRCPqMMBaEE0RXwLbHL OvFRZ2CJMdHJAvZSMrar8UVJEaJJGwBMZ3VGKiVAMvVOBxXPpgTLOgLOTdWrNeWZPyMSZxNY6BPqKmMY IvBUQbZCSiXAHuGUKqwg1XDQAsTMOdLtB0WCVyYWFiNKSgPZprAJLbJOWfJAbmZYFjRANiAR8XOvJjEA WhCAH2QTBaTVCeKXAcdo1SVFNwRYNgKle7EAFpPKTw NLRuOHayZCMaARCdHYB8KCEhRKZdQQ6CCoMhEIOpQICuUBvqJMJmVYOcro0NJVPvDHXjWYyrSLUpRRUg JSOeBXyoRVTwIFL5OQf7GKMaGFNdQD7DGzWdFAJlMXDeCpIuFKDlHLUstd5VfNTreOucvy6MNNsQKk5Y tIwhRAI5WTvzZe5rvATyWcLvQZVYFa2FbrYpYNWsIW LCRFiwZJDwCZMyLyR3VeC3MzouDmG1OcZeUTG1LNQ5L8W2H6C1SPpiJiE3HaDaYvXaMBWhPUXkVMJjXs LsXQj0NKRrOcdqHer1PPQ+HZ0mRFd+Ld7At2ByqjX2jtMvUXpvIoG1YD3YDDTQA0YNZy== ID Date Data Source [id number] 01/31/2021 09:51:37 AM EDT [facility] Name Value Range Interpretation Code Description Data Giovana rce(s) Supporting Document(s) Progress Note [facility] QEMJNv5vPmNGGvOx47/ATWqtLWCkz9LpFZxpGGt4POqvUFSwL5NwIAN1aG5nWJW1KTzBUsDtIiPdZxZ8 lbm [file] SQSKFcZrQDzaYLhrCAOAYk3I ID Date Data Source [id number] 01/31/2021 08:23:43 AM EDT [facility] Name Value Range Interpretation Code Description Data Giovana rce(s) Supporting Document(s) Progress Note [facility] KQAMJq1uQkZQBiIf42/AYCztPKMks6XqEMuqWEt6QHgeQTPfT6OzIAN6zD9yGGA2UNzGPuVhWyTzEqZ3 lbm [file] AgICAgICAgICAgICAgICAgICAgICAgICAgICAgICAg ICAgICAgICAgICAgICAgICAgICAgICAgICAgICAgICAgICANCiAgICAgICAgICAgICAgICAgICAgICAg ICAgICAgICAgICAgICAgICAgICAgICAgICAgICAgICAgICAgICAgICAgICAgICAgICAgICAgICAgICAg ICAgICAgICAgICAgICAgICANCiAgICAgICAgICAgIC AgICAgICAgICAgICAgICAgICAgICAgICAgICAgICAgICAgICAgICAgICAgICAgICAgICAgICAgICAgIC AgICAgICAgICAgICAgICAgICAgICAgICAgICANCiAgICAgICAgICAgICAgICAgICAgICAgICAgICAgIC AgICAgICAgICAgICAgICAgICAgICAgICAgICAgICAg ICAgICAgICAgICAgICAgICAgICAgICAgICAgICAgICAgICAgICANCiAgICAgICAgICAgICAgICAgICAg ICAgICAgICAgICAgICAgICAgICAgICAgICAgICAgICAgICAgICAgICAgICAgICAgICAgICAgICAgICAg ICAgICAgICAgICAgICAgICAgICANCiAgICAgICAgIC AgICAgICAgICAgICAgICAgICAgICAgICAgICAgICAgICAgICAgICAgICAgICAgICAgICAgICAgICAgIC AgICAgICAgICAgICAgICAgICAgICAgICAgICAgICANCiAgICAgICAgICAgICAgICAgICAgICAgICAgIC AgICAgICAgICAgICAgICAgICAgICAgICAgICAgICAg ICAgICAgICAgICAgICAgICAgICAgICAgICAgICAgICAgICAgICAgICANCiAgICAgICAgICAgICAgICAg ICAgICAgICAgICAgICAgICAgICAgICAgICAgICAgICAgICAgICAgICAgICAgICAgICAgICAgICAgICAg ICAgICAgICAgICAgICAgICAgICAgICANCiAgICAgIC AgICAgICAgICAgICAgICAgICAgICAgICAgICAgICAgICAgICAgICAgICAgICAgICAgICAgICAgICAgIC AgICAgICAgICAgICAgICAgICAgICAgICAgICAgICAgICANCiAgICAgICAgICAgICAgICAgICAgICAgIC AgICAgICAgICAgICAgICAgICAgICAgICAgICAgICAg ICAgICAgICAgICAgICAgICAgICAgICAgICAgICAgICAgICAgICAgICAgICANCjw/iNBwX1wauOJutnK1 U5npAf4GYp8UNH2ma7IuHTMnMHcuvkFjNdsAHqYlGEQlWdjUXzy6VVvvZC7WaCQkD9CnU0DuEQllDH6E HSZcUGBklROyTODdQUPuWvM1UNKbOCbwME3CxPIhQS wtZLQeHXXnRR4QBIKvN379dkAsCD9HIy1KPdMeMO8rrw6XGOqqEWWiBdpJXoo5UUgzHO4YuVAcfZTeYI SdDTLIFwTyR2ylf7CtABovVNMKBHlyUS2Nq9EfeNKzKGq+Gf0UXB3sx3OtBXxoLOWgWK4koy2CSAdVEl EuD2TjeBquNZYiw7uaRYWpJQ1ydFQdRTU4MKJdzR32 UYTxowFaJC1dLVWVNKC4WFqaYm9aWXNrEIU8HyO0EJYUBN8JWSBhOOKgbYPvJVVsQHCESN9WBEwhWQF7 ZVYjfdRtdYByKZcpVW9XQGRglnUxREpoLEHDTCg+Xw4YEC5dm7KeRHfoSQKsTG0pdj2MZYjXTuVmW6N0 lWXzS3M3XRmxUn1BXATzPONmDMQsWREJUEekIT6FZA 8slmJ3HQ9DzAZmFBPyKTQyaZFnYEj3F03ngAWsXZxrDD2BFXM+Janeen+Gs6LIBSyPHCcHADvRuFiZIOBDg QwM8YlW4KNe5KfJ6AwWI80mUijknJrYNsrQD8GKN7mMMHzVWYTWY2LiHEuvH6tinHrCkSqWDAFNfRoU1 8orDKiVDNiAZX2MSAwZl1BPKJnO9KxrsVmsYuhunVh VCOqKQQMPL7NGVrbboOvvIMppNhoRZ17qWbeBS7GFm0XAvSuKL6trt9QmFAjEz0LSDInQS9FYVFnNNCk DZQsUTA0GQQjOhOfNZtjSVWmOSCrZAZ0JNMeABLqIT4OYpYsCWPsOQW6PmGjSJKnTYVujl8JFEBxMTVs LfL5EjQpTDSaMCEaNIybMHZtNHHyCZE4RRMbHGOoPJ 4GIqZoQIHeHMJ0RsKfJPHlNCAcqb7IWSJpWQKrQDf0HGYdHNGxYHClUVwgLJPiUPSyORB8AURfHKNwXZ 1NGsIzAKRgSOQgIhJkGZIqGEMypn4DMJHdUSZlMxMdEQKgCMCbJFHrGQoeZMBgQDJ0KJqqYRRgSSEjJP 1ONbOaFNCrSVPdSnYqKSKeUXCxec6RPPKaJLHxERM9 SUGtHFWkIHXdPIvvNZTbPOM5ZACsGTVbAPRpUT8BGjIkGTWtGVG7BWcgHJOmHCZwva3KCQLgKNYzMIyp DQWzPKFoLXBfNFbzUHJpUKX2YoGaQOQfZWApIT6GZsNkNGFtBOj8YnLuKVRjXFMywz6TJKSwEQJnXrch DaDyGAAiEOAoIDhcMIOrAQZ3FOf9CQKqUSTwOJ0YEc VyNMupRLVFXxm4RCcxO5d3YFPgCG5LW9Qwu7AeRBgrDRCHESjqOT4ifeWuHLYeJj2ZB9sFByxmMIW0OG L6Jxk4ZQPeFrjoF4KqM5OdJxQmJLU5EXH8Qd2nIEHfQCO9TRLnEVLcMVInMABlBUK2Q8R0ZHNpMdRcLM saJoPcNB5KUx9AZmX5CRZ5rZNsTl1UMEPmVx5TCISCN8OEKl== ID Date Data Source [id number] 01/31/2021 06:10:05 AM EDT [facility] Name Value Range Interpretation Code Description Data Giovana rce(s) Supporting Document(s) Progress Note [facility] CSSWFr3dFlBZIzAg13/MVDwxYKLpf6LmEWauBTz6QBosMEEpX2MpBON9lQ1bDRI3YIxBAdXkXxFhHkS1 lbm [file] AgICAgICAgICAgICAgICAgICAgICAgICAgICAgICAgICAgICAgICAgICAgICAgICAgDQogICAgICAgIC AgICAgICAgICAgICAgICAgICAgICAgICAgICAgICAg ICAgICAgICAgICAgICAgICAgICAgICAgICAgICAgICAgICAgICAgICAgICAgICAgICAgICAgICAgICAg DQogICAgICAgICAgICAgICAgICAgICAgICAgICAgICAgICAgICAgICAgICAgICAgICAgICAgICAgICAg ICAgICAgICAgICAgICAgICAgICAgICAgICAgICAgIC AgICAgICAgICAgDQogICAgICAgICAgICAgICAgICAgICAgICAgICAgICAgICAgICAgICAgICAgICAgIC AgICAgICAgICAgICAgICAgICAgICAgICAgICAgICAgICAgICAgICAgICAgICAgICAgICAgDQogICAgIC AgICAgICAgICAgICAgICAgICAgICAgICAgICAgICAg ICAgICAgICAgICAgICAgICAgICAgICAgICAgICAgICAgICAgICAgICAgICAgICAgICAgICAgICAgICAg ICAgDQogICAgICAgICAgICAgICAgICAgICAgICAgICAgICAgICAgICAgICAgICAgICAgICAgICAgICAg ICAgICAgICAgICAgICAgICAgICAgICAgICAgICAgIC AgICAgICAgICAgICAgDQogICAgICAgICAgICAgICAgICAgICAgICAgICAgICAgICAgICAgICAgICAgIC AgICAgICAgICAgICAgICAgICAgICAgICAgICAgICAgICAgICAgICAgICAgICAgICAgICAgICAgDQogIC AgICAgICAgICAgICAgICAgICAgICAgICAgICAgICAg ICAgICAgICAgICAgICAgICAgICAgICAgICAgICAgICAgICAgICAgICAgICAgICAgICAgICAgICAgICAg ICAgICAgDQogICAgICAgICAgICAgICAgICAgICAgICAgICAgICAgICAgICAgICAgICAgICAgICAgICAg ICAgICAgICAgICAgICAgICAgICAgICAgICAgICAgIC AgICAgICAgICAgICAgICAgDQogICAgICAgICAgICAgICAgICAgICAgICAgICAgICAgICAgICAgICAgIC AgICAgICAgICAgICAgICAgICAgICAgICAgICAgICAgICAgICAgICAgICAgICAgICAgICAgICAgICAgDQ o9A4isHIXmQCIiYW4tWOu0Vr5+INaMFlWrKJA8vmDl oF8RYO5uv1GvTMqcLCLic3NbVNo2WV1CFPRiNIrkMJ8IWMdxwq2UAUYnJIRfqIWPe2ezEmLgJEF1QRRz OygiPM3CCZYwR5dsneYwODPoTSQRWL0MSmEaB9NvhR01SHIFSf3+GZopdsRmCvpHVlR1ZZRff4GgEAf1 QT9LEHYmDgvjg5DoHCRdSXCZADcaYJ1LMWG0TCC4VO IeXc1XHANqH076jzZeGM4WKe4WZtKvVZ0hby1NXOHaIZPvVlsEVmo0XPdkFL9JtYBtNGlRzc9rryIqnw JCr8TxinNztPMDF080aQXICSDnamYqdVpbaoC5fqmqCA6VDSX6ECniYn8iHAAgYYR2TtO9MHQIIG7XDT FaVGGqfZDcZVLmKMSGGO1ZOAejHMQ0AGUylbTaeSOe ZZvfLK7UXHViqsAwMNVpIINFDJn+Li6IOP2ka4ArPQckOyFcXM3qpf0YLClKUiEfF3A5yENxZ2P8PJeo Rs4TXMLgYQDcDEWbAHTRTJrmTB4HNX0znkS6GX2WxMFvWWHjQEIdqHOrXPb5B93reQKyLJkjAQ0IPOX+ Janeen+Hw5EXNNdMCXzRKMcYlInCMYTKvVzA8ZqZ3ZTe8 CxY1YxVL41qGneorDyVGlsRQ7SML6kMSFsLCPYLF2AiVNrtK8rfoJsBDPlZEMZLpCwZ06wiJPcLGQgAU HlWLCjRp4ZAOTaF3EupjDezAoqptIeENSkBVMTUJ4VMQrpfqYsuJSnwItqGU60uJiwYW9STj3ANuMqZX 6nsk8YrCXhFe8VMAZvTu0VFHIzNYJoHZVyYWP4WCLg YkApLMptEJVgEWBpCEH9HYNsPRVfRX9YRlKjCPHmNQZ7NLiiFLOhDPMjbm9VCYNnPHLoNmY4JbGfWHYv CGEeFNxgETAgCLSvMVN5UYLiBHNeVG8DYsWwDARrAIVbFMieBHBmKCHyer0HGNSiSMEsFhW2GAFhKYRr EFYqQEafCWSiBDQvAoYgDTWbXMUgWN4TAdBrREUxEA U6BHQxNYUlZUGrux9PYEHjYUShHdD1EiSpOTJuHLUiLWogCDExMZB7IGZ2FVEcXFSrXX3BWnKvHUWrBT Y7EJLzSRLiJFIlzz5SHJWsMFKfIStyOrWpCRQmIIVdRFmsQCUjNGC6VdY6CWQzLXBmMH5EUxFkCJAyLQ F2OyCzORGhBUAlky4ZAUGuZQXzFjh2JvRqXZVeZFAp UTfsENNaXRT8NPJqKQUuJGGvXO3SAqUqKDsuBMMCEus8BUpkO4s7UMNhJg7AG3Jle0XhWZAvZKPUGBuo FU9kgxFqJEXgRo2IH5xAPyqdYtLuVtFwCIFbIBe0RsLaHRBxZ1B3QUA9RvZ4FWZ0FR1jUJRzFSZ3IJY4 NWH0BBFfKTL9OjTtJgCnGxmnBFdmYTjoSiEcAD6YRk1BWfY7GWQ2mMKnRv7CVzC2JQ8SVNQOE8KXSt== ID Date Data Source [id number] 01/30/2021 09:11:00 PM EDT [facility] Name Value Range Interpretation Code Description Data Giovana rce(s) Supporting Document(s) SARS-CoV-2 RNA 2019 nCoV Real-Time RT-PCR: NOT DETECTED [facility] This lab was ordered by [facility] and reported by [facility]. ID Date Data Source [id number] 01/30/2021 10:22:07 PM EDT [facility] Service Cmnt XXX-Imp : NoneRespiratory P CR Panel : PCR ResultsMicroorganism XXX Cult : See Labs Tab for 2019 nCoV RT-PCR resultsHAdV DNA QI ADONAY+non-probe : Not DetectedHCoV 229ERNA Nph QI ADONAY+non-probe : Not DetectedHCoV RQV3RDQ Nph QI ADONAY+non-probe : Not QoyrunrnZAlJZW45 RNA Nph QI ADONAY+non-probe : Not CpauthyuDDyYQX83 RNA Upper resp QI ADONAY+probe : Not [...] DNA Nph Q ADONAY+non-probe : Not DetectedB zerkgDP037 DNA Nph ADONAY+non-probe : Not Detected Name Value Range Interpretation Code Description Data Giovana rce(s) Supporting Document(s) ID Date Data Source [id number] 01/30/2021 10:20:35 PM EDT [facility] Name Value Range Interpretation Code Description Data Giovana rce(s) Supporting Document(s) Specimen source [Identifier] of Unspecified specimen [facility] SARS-CoV-2 RNA 2019 nCoV Real-Time RT-PCR: NOT DETECTED [facility] Assay Performed [facility] Patients first test for [facility] 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[facility] Patient has symptoms related to [facility] When did you start to experience these symptoms [Date and time] [Phen X] [facility] Patient was hospitalized because of this condition [facility] patient was admitted to ICU for [facility] Patient resides in a congregate care setting [facility] status [facility] ID Date Data Source [id number] 01/30/2021 05:51:29 PM EDT [facility] Value Range Interpretation Code Description Data Giovana rce(s) Supporting Document(s) Progress Note [facility] ANZSBo7gRfBFSuDw67/KGSjkLFPkz8CoQTfmXIr5BQuoSSYyE2SuDWL7iM1mMSI8CSmUIdTyJmVjUqP6 lbm [file] 3Bk3NwwbL0ztOkDTjnFGY7Pz5OCQDIE5BPYk== ID Date Data Source [id number] 01/30/2021 04:11:15 PM EDT [facility] Name Value Range Interpretation Code Description Data Giovana rce(s) Supporting Document(s) Progress Note [facility] CCRGBu0jCiUROgRo41/CGIabOZZdt9SyPHoqAIk0YQviWKCyQ6KjUQV7iO5sTCK8TUjTGgMtZnYpBrI8 lbm [file] EmUpYby0RkW+UQ6pKTy+Vy2Wf9HmnxL2wjGwJDl1UuL6XMtuROLULl4Y ID Date Data Source [id number] 01/30/2021 01:10:26 PM EDT [facility] Name Value Range Interpretation Code Description Data Giovana e(s) Supporting Document(s) History and Physical [facility] SJMBBy7xKhOUKmKe48/KBQujZMPmu1EcYMarSSt2MUebVCBnC9TdKQN7xL4xITU0FPhXBrBjMqZbHpZ2 lbm [file] rqe+oWdPlrslnudhZDDmFQsvWyzxwlhtuQX/BCpaFP BmrKsXv8HvQOEFXs1Y9dX/TYEUdnJCnrbYZuk4mxBb2iQ/YgaDVoCkvrIBQvtcrUHFatCGkSCehwJWqv JIrtjbESSraaifsbzAQlG5Ms9iuusQeXZKay83pQXY1On4GgQw1WJpuq+AsVBleJbQiW9CGHebuIshKG Hr/jPuKAF18HC8om6xOnwaCO+CORE STRIPPER/vkn/pjwvkuxL9p 0YSDsdev54da8nTmMb5KA+LALO/AcmAABMZ7yfacFhTIlZlHSJqzzagZGiqhJX5YxBcgpunodFxgdp829U [file] ILSmPcMLltYGdkZVBROa4V ID Date Data Source [id number] 01/30/2021 05:52:45 AM EDT [facility] Name Value Range Interpretation Code Description Data Giovana rce(s) Supporting Document(s) Progress Note [facility] ZZARTq6mKaFRSyZr50/PEGyxCKKjp0EwUNggQNn8TCduKLIkG9ByDYO8vE1qXCY4NAoPOqLkXiDmKoX5 lbm NyXreISkLqATMhJrbAFlGdNZipQqdvyZRrSA4FaYM5PYHoA20yUMXhUVEjD3CtINKkJZn+Jd5OHENyxR XvHQ8XYuvG4D1udes8Mv4ecL4zgUWK4aAci5n8PHdKrfik0yPyhDO9xsu4CBGQvn9zw1Os0JGn711GCH qRp7aSEurm7j720PVkwZWu7fxRzmXp0q//Lnuu1Bow U/y/+Gec+k8glapxp7iuBuEjmd7/qVUiH/gi5teLV/k/ldf+4IdT5/Cl6+StOafj/VS4j5ADc0+6kXM6 2ns3/WQ8Dy9fvuxf+UM4nDjxvJr9rxpUtfb3FHTY460pVp6gQrc1x39ljr5KnRp2Y8LinECZwBqIdgQ5 W7RhF41ri4tDdPI4E/Kg4FYnyi9ETstw3avSRGZw8j rBmgF7pugDVmqiy/76uw1b7OzlikYD8lmAcz2Tomry8ukWF1K+JT/kEJG5w97mO3Pr8zSbVdE5vZjnqr cVH0jJeynsFWcl/YgMNkCXlRJocQRU3R1uWyKogqACH+FF3+3TLXJPyBGN73j23DEydrMW4+G+z/6wx8 g45JTtyx0cGUglwytASgWXajJr809+sDeUuumaS/6h f+numxYek85n/iLjWMTMDuI6YTaiqnEFEe15uqdRosX7D2+XZ03u0RldvZUX4yWvLg7KvJjHx1AZWYVm ebvCQr1MdUwPTtcZC89V4h4qKrfw0HfMpX8TEr+vii/z55hLmQhRFouQdqiE0Jr9VL931aDxwCzxe74k osWInVdLqOI+GF0xL2odEk3w1st5a871Uh/DEON/ejxN [file] [employer] Back Tender+1s/Pt77tW75+Q8qEi7jjkowi3nftWkbBxrQ3uKz6oxJbm8AJdEChLA2OGmZH7I93DkdPqXuPmuk1e [file] sMm7Kbc1sDZJ5FBGE1CLZL0F0MwK8KvRNLNIbW+dock attendant qBkGeSTHo/FOJt0hZ8D40nIGxHUswDpRzMI07UJKIu4JZR1tabTbJo+oc+vxkvUv5ZUeOLecHWrQcAHN 9SsOR077BwCJp4qK8RsN6Weh7XAnScCzgoVtM/GCH+sLRbATIrqQnzToIDUB3Pp5hQkEsF3zvrLDvHL+ ffZrIDIPvJfkVO9TgfFQgnWSus+9RES+KoskUkogr3 jwsjv0NDH3yih81RgOo6uWxh9Nh/qu0yaE5yyh/JGcLvPzJ7a1Ht8w+YXjoGRjBexnIbekGpSPeovVNQ B4v8PzknYcHVcMzjYlAzdGQONODOikFh/k3hLaldnAGVLd41u4pbMoF3ymNQAfIlWnNV2tI/a5fYK7v+ K/h8sXxzBb3Dx1gFEmVnyIFVv+ppys0YGE+rkz8URB EF8HnAacRfErWWpsR6PzuY/vLnplTpu/eXqIjCnNswLyKZOKSMQsfBBJqATvxhZESq+squunQBW0/Lacy [file] UhPTC4Hng2BjStIwcjNQ4gGECVPs3+LDxmnAFyvNbfYAWRYgQ1WYKxVNhbZYUZMo3X ID Date Data Source [id number] 01/27/2021 11:22:47 AM EDT [facility] Name Value Range Interpretation Code Description Data Giovana rce(s) Supporting Document(s) Progress Note [facility] SDYJTv4mCbEIZhEf41/PEZizXZAkg6VkURxwGVd6IXedYMNiY8WmRYD6xK0cPMZ7ESbCMcGkEbCnHtSt lbm [file] [id number]+UT0rQKv+Gs5Rb3ElmdD4lvRkCYtgPVR1MP5PLCMGD4SFFv== ID Date Data Source [id number] 01/27/2021 11:22:00 AM EDT [facility] Name Value Range Interpretation Code Description Data Giovana rce(s) Supporting Document(s) SARS-CoV-2 RNA 2018 nCoV Real-Time RT-PCR: NOT DETECTED [facility] This lab was ordered by [facility] and reported by [facility]. 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[facility] Patient has symptoms related to condition [facility] When did you start to experience these symptoms [Date and time] [Phen X] [facility] Patient was hospitalized because of this condition [facility] patient was admitted to ICU for [facility] Patient resides in a congregate care setting [facility] status [facility] ID Date Data Source [id number] 01/20/2021 09:01:00 AM EDT [facility] Name Value Range Interpretation Code Description Data Giovana rce(s) Supporting Document(s) SARS-CoV-2 RNA Resp Ql ADONAY+probe NOT DETECTED [facility] This lab was ordered by [facility] and reported by [facility]. ID Date Data Source [id number] 01/18/2021 12:14:10 PM EDT [facility] XR ANKLE 2 VIEWS [id number] RESULTInterp reted by:ALKA Lawson FOOT AND ANKLECLINICAL [...] rce(s) Supporting Document(s) ID Date Data Source [id number] 01/18/2021 12:14:10 PM EDT [facility] XR FOOT 3 OR MORE VIEWS [id number] RESUL TInterpreted by:ALKA Lawson FOOT AND ANKLECLINICAL [...] rce(s) Supporting Document(s) ID Date Data Source [id number] 01/09/2021 03:09:32 PM EDT [facility] Name Value Range Interpretation Code Description Data Giovana rce(s) Supporting Document(s) Progress Note [facility] GZUUSp9qSgMPYhYo01/ATTfhUWFbn2OoXTxnNHm2GPbaXSXsY8YcCEW8tD6gPFN7FTuGRoPuMgBkIdJ5 m [file] AgICAgICAgICAgICAgICAgICAgICAgICAgICAgICAgICAgICAgICAgICAgICAgICAgICAgICAgICAgIC AgICAgICAgICAgICAgICAgICAgICAgICAgDQogICAgICAgICAgICAgICAgICAgICAgICAgICAgICAgIC AgICAgICAgICAgICAgICAgICAgICAgICAgICAgICAg ICAgICAgICAgICAgICAgICAgICAgICAgICAgICAgICAgICAgDQogICAgICAgICAgICAgICAgICAgICAg ICAgICAgICAgICAgICAgICAgICAgICAgICAgICAgICAgICAgICAgICAgICAgICAgICAgICAgICAgICAg ICAgICAgICAgICAgICAgICAgDQogICAgICAgICAgIC AgICAgICAgICAgICAgICAgICAgICAgICAgICAgICAgICAgICAgICAgICAgICAgICAgICAgICAgICAgIC AgICAgICAgICAgICAgICAgICAgICAgICAgICAgDQogICAgICAgICAgICAgICAgICAgICAgICAgICAgIC AgICAgICAgICAgICAgICAgICAgICAgICAgICAgICAg ICAgICAgICAgICAgICAgICAgICAgICAgICAgICAgICAgICAgICAgDQogICAgICAgICAgICAgICAgICAg ICAgICAgICAgICAgICAgICAgICAgICAgICAgICAgICAgICAgICAgICAgICAgICAgICAgICAgICAgICAg ICAgICAgICAgICAgICAgICAgICAgDQogICAgICAgIC AgICAgICAgICAgICAgICAgICAgICAgICAgICAgICAgICAgICAgICAgICAgICAgICAgICAgICAgICAgIC AgICAgICAgICAgICAgICAgICAgICAgICAgICAgICAgDQogICAgICAgICAgICAgICAgICAgICAgICAgIC AgICAgICAgICAgICAgICAgICAgICAgICAgICAgICAg ICAgICAgICAgICAgICAgICAgICAgICAgICAgICAgICAgICAgICAgICAgDQogICAgICAgICAgICAgICAg ICAgICAgICAgICAgICAgICAgICAgICAgICAgICAgICAgICAgICAgICAgICAgICAgICAgICAgICAgICAg ICAgICAgICAgICAgICAgICAgICAgICAgDQogICAgIC AgICAgICAgICAgICAgICAgICAgICAgICAgICAgICAgICAgICAgICAgICAgICAgICAgICAgICAgICAgIC RrQMWbZWHuNYOhXTBvQSQvEPRwNXNeQVZsIAYkAFRbWDHaPNw0A2voLTRwZFJmKC3xDYf8Eg1+DQoNCm JxXMD7riCknH8MTH4do1MzKPsdAWEfg5LnEWb7YT4I XWQhHJqfKY0PKErsim0LMJTqNWLtcFSJq3xeOzSsJKL8FDEuHvosKS8LUJXgB5zysfIxYJYcCIVLHB4W WiWtM5BuhH37LFTTKb5+HJplgaIeUjcJKcTiQXDvu1PdIVt4II1PWJUyTrjmp8DiAwLtDBZLTGzkYD3F FTF6BSXnQUVbDg1ECDSpR524xyZiUI0UBg4AEfTaPG 9ueh0WMoPtJLXhIdhETrv8IVhaSK8RlECmTWpPay8rjtIcguFZr5NnruNwmUEVcBBawLMfTPJwVhkbb2 ZndVlhDZMkRXTsAq6cPF6eBHHqTNShIhIkMWFAOE1YVYHjGEKjtHIpSCOdBSVJDF4BNYfnVKR2KLCbfb KpdNKuEZgaTY9TPDQhdaGaZlUfAUILDHt+Lw6PSK2d d6PzHKelHIUkHE4chy0SNXgRLnTlW0L7jGXaS0W4QVdoMx2FYSHfMWCcFjCfPGOWWIzrKU5NUA0jycU4 HQ3VkSVmROHlUKKhuSSsIJd3F00yzPIuSFslEV3AOZH+Janeen+Ir6XLWLfDQDlWFJmZqMcZTOXYcMuL4Qq E4FZt6PlV4UaHK49fVnuwwNlQBdlYK4QAU7jYHKjLX TMCO9TvYQezD9vokFeMkUkXMBQVnTfI81wsDRuHASsSIBoNDTxZj0NUOIgL0UjxiLsoRlkqkTsJTNgXN RGDA1GYVgofeBstBJkuPewWR85qKphOM8EAp1DUsPgGW2ieo0WgFHsCf0MWRShHD7DNHAjAPUiWNJjFD C8WYAnRhGgWEjwHXMhLDOcHSZ4NTMyKWYmVN7ZLsMk CBRwSRk4VNwmKZHoQMSrsq7ZJREfJZPbNUF1CSMrDTPpOVInEQzwOOVzAXEdLVZ1TKKtBDJlJG3RRvGw KJWuNKRrAGbtOPDfNFKscy1PZNRkCTIoRvB0XDGbRMCgNBSjSGpgLAIlYIEgEYTcOICkUBHiDC2UXhIi HLQzEUI2BKCkEKUhMKRmsj5MSLFsAYVcMoltHiTuMP IvEUBsFGtbDVAoDCV1JJl9NTZgEIAiPQ5VVjNdQAGeAORnOTCnBMWiQQWnir7VUFEzHSKaJXK8RgUcUM IiMZIyBUogLHKaEFE3SaM2LLDdTMRoNV4VIvKpBKCeZTJ5EGPuEHMwBZKifh3AKLOcYRBwVpO1GsLhJG ApHZVzXIwpABCmDHJ9EvlbDPXqZIQtTF8JAuEwCJDz ZIw5LfyaGGRhIUSvwa4WIMQyJONfHOS3UyKhPUCyRIPnTWdjIOPzKAN0LiQ9QDUpLGKoBG4XBkXgCWOc MSu3WlEjYGNaVLFtmb8JODDbIJTiXTM5UHSxFGQmKYOaZStaFRNjQIFaDlz2MPUqOUGmNO7VRaAdBORy NvH3EfUjEOUnQQMtqp5GJGYaFDHfWZybYjGtNXJdQJ WlVUo6bmHblSBkJHz0QT4IX0UhfnQnGjHPBc4Bp196SMI1MXNsAy0ZR8vdEx8fJCGsKMDENn8BKHm2Qb GgHXE1WAVxYchbBBUuVENxGQP6FZNoNGhwGJl9SUI+DQefDLFfIDJ9QGBtX2T0GLZoGeMgOcFjBVOjMF UjXZlcUJ2oVLHHQy7+WEvldAMnaNyuFRPJQmHgZEM5FKebDOIWBs8Z ID Date Data Source [id number] 12/12/2020 03:03:00 PM EDT [facility] ([facility]) Name Value Range Interpretation Code Description Data Giovana rce(s) Supporting Document(s) White Blood Count 13.4 10 4.0-10.0 Above high normal [facility] ([facility]) Red Blood Count 5.89 10 4.30-6.10 Normal (applies to non-numeric results) [facility] ([facility]) Hemoglobin 16.9 g/dL 13.5-17.5 Normal (applies to non-numeric resul ts) [facility] ([facility]) Hematocrit 53.3 % 42.0-52.0 Above high normal [facility] ([facility]) Mean Corpuscular Hemoglobin 28.7 pg 27.0-33.0 Norm al (applies to non-numeric results) [facility] ([facility]) Mean Corpuscular Volume 90.5 fl 80.0-96.0 Normal ( applies to non-numeric results) [facility] ([facility]) Mean Corpuscular HGB Conc 31.7 g/dL 32.0-36.5 Below low normal [facility] ([facility]) Platelet Count, Automated 255 10 150-450 Normal (applies to non-numeric results) [facility]) Neutrophils % 78.0 % 36.0-66.0 Above high normal [facility] ([facility]) Red Cell Distribution Width 13.8 % 11.5-14.5 Norm al (applies to non-numeric results) [facility] ([facility]) Lymph % 13.3 % 24.0-44.0 Below low normal [facility] Eos % 1.4 % 0.0-3.0 Normal (applies to non-numeric resul ts) [facility] ([facility]) Wright % 6.6 % 2.0-8.0 Normal (applies to non-numeric resul ts) [facility] ([facility]) Baso % 0.3 % 0.0-1.0 Normal (applies to non-numeric resul ts) [facility] ([facility]) Immature Granulocyte % 0.4 % 0-3.0 Normal (applies to non-n umeric results) [facility] ([facility]) Nucleated Red Blood Cell % 0.0 % 0-0 Normal (applies to n on-numeric results) [facility] ([facility]) Lymph # 1.8 10 1.5-5.0 Normal (applies to non-numeric resul ts) [facility] ([facility]) Neutrophils # 10.5 10 1.5-8.5 Above high normal [facility] ([facility]) Wright # 0.9 10 0.0-0.8 Above high normal [facility] ([facility]) Eos # 0.2 10 0.0-0.5 Normal (applies to non-numeric resul ts) [facility] ([facility]) Baso # 0.0 10 0.0-0.2 Normal (applies to non-numeric resul ts) [facility] ([facility]) ID Date Data Source [id number] 12/12/2020 03:03:00 PM EDT [facility] ([facility]) Name Value Range Interpretation Code Description Data Giovana rce(s) Supporting Document(s) Class Description Laboratory test result Normal (applies to non-numeric results) [facility] ([facility]) <content>.</content>
<content>Levels of Specific IgE Class Description of Class</content>
<content> ----- </content>
<content>< 0.10 0 Negative</content>
<content>0.10 - 0.31 0/I Equivocal/Low</content>
<content>0.32 - 0.55 I Low</content>
<content>0.56 - 1.40 II Moderate</content>
<content>1.41 - 3.90 III High</content>
<content>3.91 - 19.00 IV Very High</content>
<content>19.01 - 100.00 V Very High</content>
<content>>100.00 Very High</content>
<content></content> [id number] D pteronyssinus 0.64 kU/L Abnormal (applie s to non-numeric results) [facility] ([facility], ) C613-FyZ D farinae Mite 0.41 kU/L Abnormal (applies to no n-numeric results) [facility] ([facility], ) O609-NqC Dog Dander Laboratory test result Milagros l (applies to non-numeric results) [facility] ([facility], ) E075-ZoG Cat Epith/Dander Laboratory test result Normal (applies to non- numeric results) [facility] ([facility]) Q587-KgJ Bermuda Grass 0.13 kU/L Abnormal (applies to non -numeric results) [facility] ([facility], ) Y937-FiT [place] Laboratory test result Normal (applies to non- numeric results) [facility] ([facility], ) D272-BkC Cockroach, Bulgarian Laboratory test result Normal (applies to non- numeric results) [facility] ([facility], ) U035-KyS Bahia Grass Laboratory test result Norm al (applies to non-numeric results) [facility] ([facility], ) R659-QyQ Penicillium chrysogen Laboratory test result Normal (applies to non- numeric results) [facility] ([facility]) M003 IgE Aspergillus fumigatu Laboratory test result Normal (applies to non- numeric results) [facility] ([facility]) M002 IgE Cladosporium herbaru Laboratory test result Normal (applies to non- numeric results) [facility] ([facility]) U905-PpW Alternaria alternata 0.48 kU/L Ab normal (applies to non-numeric results) [facility] ([facility]) W135-FnI Mucor racemosus Laboratory test result Normal (applies to non-numeric results) [facility] ([facility]) Q394-PeI Stemphylium Herbarum Laboratory test result Normal (applies to non- numeric results) [facility] ([facility]) R655-QvP Common Silver Birch Laboratory test result Normal (applies to non- numeric results) [facility] ([facility], ) U250-YlK [place], White Laboratory test result Milagros l (applies to non-numeric results) [facility] ([facility]) P640-NbI Elm, Bulgarian Laboratory test result No rmal (applies to non-numeric results) [facility] ([facility], ) E079-MtB Lakhwinder, White Laboratory test result Milagros l (applies to non-numeric results) [facility] ([facility], ) P160-NyI Maple/Schertz Laboratory test result Normal (applies to non-numeric results) [facility] ([facility], ) P593-VwC Hazel[place] Tree Laboratory test result No rmal (applies to non-numeric results) [facility] ([facility], ) M282-QiV [place] Laboratory test result N ormal (applies to non-numeric results) [facility] ([facility], ) Z250-OrV Lamar, White Laboratory test result N ormal (applies to non-numeric results) [facility] ([facility], ) F494-AsK Ragweed, Short Laboratory test result N ormal (applies to non-numeric results) [facility] ([facility], ) G243-CjL [place], Mountain Laboratory test result Normal (applies to non-numeric results) [facility] ([facility]) T814-KlK Mugwort Laboratory test result Normal ( applies to non-numeric results) [facility] ([facility]) Q789-StL Plantain, Ukrainian Laboratory test result Normal (applies to non- numeric results) [facility] ([facility]) K763-RdR Pigweed, Rough Laboratory test result N ormal (applies to non-numeric results) [facility] ([facility]) O881-BxT Sheep [place] Laboratory test result Nor mal (applies to non-numeric results) [facility] ([facility]) O020-VqS Nettle Laboratory test result Normal (a pplies to non-numeric results) [facility] ([facility]) Performed at: [address] [id number] [address] Thresher: Adam Barclay MD, Phone: [phone] ID Date Data Source [id number] 12/12/2020 03:03:00 PM EDT [facility] ([facility]) Name Value Range Interpretation Code Description Data Giovana rce(s) Supporting Document(s) IgE [Mass/volume] in Serum 297.0 IU/ml Above high normal [facility] ([facility]) ID Date Data Source [id number] 11/28/2020 02:43:42 PM EDT [facility] Name Value Range Interpretation Code Description Data Giovana rce(s) Supporting Document(s) Progress Note [facility] MCEVLo0aHgSSFjSz68/NMUuiQBPqa6IoEAiiKHf6DQumLDOxN6LgFUE6wA6xPSJ1VHpRPnVeLyUyHUA2 [facility] [file] [id number]= ID Date Data Source [id number] 11/29/2020 01:16:35 PM EDT [facility] Service Cmnt XXX-Imp : NoneMicroorganism XXX Cult : 40,000 col/mlIndigenous microorganisms. Name Value Range Interpretation Code Description Data Giovana rce(s) Supporting Document(s) ID Date Data Source [id number] 11/28/2020 03:06:38 PM EDT [facility] Name Value Range Interpretation Code Description Data Giovana rce(s) Supporting Document(s) Color of Urine [facility] Clarity of Urine [facility] Specific gravity of Urine by Refractometry automated 1.009 1.003 -1.030 [facility] pH of Urine by Automated test strip 6.0 5.0-8.0 [facility] Protein [Mass/volume] in Urine by Automated test strip Neg [facility] Glucose [Mass/volume] in Urine by Automated test strip Neg [facility] Ketones [Mass/volume] in Urine by Automated test strip Neg [facility] Bilirubin.total [Presence] in Urine by Automated test strip Negative [facility] Hemoglobin [Presence] in Urine by Automated test strip Neg [facility] Leukocyte esterase [Presence] in Urine by Automated test strip Negative [facility] Nitrite [Presence] in Urine by Automated test strip Negati [facility] Leukocytes [#/area] in Urine sediment by Automated count 0 /HPF 0 -5 [facility] Erythrocytes [#/area] in Urine sediment by Automated count 0 /HPF 0-3 [facility] ID Date Data Source [id number] 11/02/2020 09:55:00 AM EDT [facility] Name Value Range Interpretation Code Description Data Giovana rce(s) Supporting Document(s) SARS-CoV-2 (COVID-19) RNA [Presence] in Respiratory specimen by ADONAY with probe detection Not Detected [facility] This lab was ordered by [facility] and reported by [employer]. ID Date Data Source [id number] 10/25/2020 08:49:00 AM EDT [facility] Patient: NICK MEEK Observation R eport - Physicians/Mid Levels [facility].VisitID: [id number] [place] [address] [phone], MRegistration Date/Time: 10/24/2020 16:38 Weight:174.1 kg (S). [...] rce(s) Supporting Document(s) ID Date Data Source [id number] 10/24/2020 07:15:00 PM EDT [facility] [...] rce(s) Supporting Document(s) ID Date Data Source [id number] 10/24/2020 05:40:00 PM EDT [facility] TSYSORDER [id number] Name Value Range Interpretation Code Description Data Giovana rce(s) Supporting Document(s) MAGNESIUM 2.1 mg/dL 1.8-2.4 [facility] ID Date Data Source [id number] 10/24/2020 05:40:00 PM EDT [facility] TSYSORDER [id number] Name Value Range Interpretation Code Description Data Giovana rce(s) Supporting Document(s) LIPASE 94 U/L 73-393 [facility] ID Date Data Source [id number] 10/24/2020 05:40:00 PM EDT [facility] TSYSORDER [id number] Name Value Range Interpretation Code Description Data Giovana rce(s) Supporting Document(s) GLUCOSE 94 mg/dL 74-106 [facility] BLOOD UREA NITROGEN 10 mg/dL 7-18 [facility] CREATININE 0.93 mg/dL 0.7-1.3 [facility] SODIUM 142 mmol/L 136-145 [facility] POTASSIUM 3.5 mmol/L 3.5-5.1 [facility] CHLORIDE 104 mmol/L 98-107 [facility] CO2 27 mmol/L 21-32 [facility] CALCIUM 9.0 mg/dL 8.5-10.1 [facility] ANION GAP 11.0 mmol/L 5-12 [facility] GLOMERULAR FILTRATION RATE >90 mL/min [facility] GFR IS CALCULATED IN mL/min/1.73m2 MILAGROS L FUNCTION: >90MILDLY DECREASED: 60-89MILDY TO MODERATELY DECREASED: 45-59 MODERATELY TO SEVERELY DECREASED: 30-44SEVERELY DECREASED: 15-29RENAL FAILURE: <15 AST 24 U/L 15-37 [facility] ALT 57 U/L 12-78 [facility] ALKALINE PHOSPHATASE 85 U/L 46-116 [facility] pital TOTAL BILIRUBIN 0.4 mg/dL 0.2-1.0 [facility] TOTAL PROTEIN 8.0 g/dl 6.4-8.2 [facility] ALBUMIN 3.6 gm/dL 3.4-5.0 [facility] ID Date Data Source [id number] 10/24/2020 05:34:00 PM EDT [facility] TSYSORDER [id number] Name Value Range Interpretation Code Description Data Giovana rce(s) Supporting Document(s) PARTIAL THROMBOPLASTIN TIME 26.5 SECONDS 21.2-27.3 [facility] ID Date Data Source [id number] 10/24/2020 05:34:00 PM EDT [facility] TSYSORDER [id number] Name Value Range Interpretation Code Description Data Giovana rce(s) Supporting Document(s) PROTHROMBIN TIME (PATIENT) 10.5 SECONDS 9.1-11.6 [facility] INR 1.01 0.87-1.06 [facility] ID Date Data Source [id number] 10/24/2020 05:17:00 PM EDT [facility] TSYSORDER [id number] Name Value Range Interpretation Code Description Data Giovana rce(s) Supporting Document(s) WHITE BLOOD COUNT 9.6 K/mm3 4.0-10.0 [facility] al RED BLOOD COUNT 5.37 M/mm3 4.50-6.00 [facility] HEMOGLOBIN 15.9 gm/dL 14.0-18.0 [facility] HEMATOCRIT 46.9 % 42.0-54.0 [facility] MEAN CELL VOLUME 87.3 fl 80-96 [facility] MEAN CORPUSCULAR HEMOGLOBIN 29.6 pg 27.0-31.0 [facility] MEAN CORPUSCULAR HGB CONC 33.9 g/dl 32.0-36.0 [facility] RED CELL DISTRIBUTION WIDTH 13.2 % 10.0-14.5 [facility] PLATELET COUNT 220 K/mm3 172-450 [facility] MEAN PLATELET VOLUME 9.1 fl 9.0-13.0 [facility] pital GRAN % 71.2 % 50-80.0 [facility] IG% 0.1 % 0.0-0.2 [facility] LYMPH % 18.7 % 25.0-50.0 L [facility] MONO % 6.5 % 2.0-10.0 [facility] EOS % 3.3 % 0-5.0 [facility] BASO % 0.2 % 0.0-2.0 [facility] GRAN # 6.9 K/mm3 2.0-8.00 [facility] IG# 0.0 K/mm3 0.0-0.2 [facility] LYMPH # 1.8 K/mm3 1.0-5.0 [facility] MONO # 0.6 K/mm3 0.10-1.20 [facility] EOS # 0.3 K/mm3 0.0-0.5 [facility] BASO # 0.0 K/mm3 0.0-0.2 [facility] ID Date Data Source [id number] 10/24/2020 05:19:00 PM EDT [facility] TSYSORDER [id number] Name Value Range Interpretation Code Description Data Giovana rce(s) Supporting Document(s) URINE COLOR. YELLOW [facility] URINE [facility]AR [facility] GLU[facility]SE (UA) NEGATIVE mg/dL NEGATIVE [facility] URINE BILIRUBIN NEGATIVE NEGATIVE [facility] URINE KETONE NEGATIVE mg/dL NEGATIVE [facility] SPECIFIC GRAVITY,URINE 1.010 1.005-1.030 [facility] URINE BLOOD NEGATIVE NEGATIVE [facility] PH,URINE 6.0 5.0-9.0 [facility] URINE PROTEIN NEGATIVE mg/dL NEGATIVE [facility] UR[facility] UROBILINOGEN NORMAL(0.2-1) mg/dL 0-1 [facility] URINE NITRATE NEGATIVE NEGATIVE [facility] URINE LEUKOCYTE ESTERASE NEGATIVE NEGATIVE [facility] ID Date Data Source [id number] 10/12/2020 09:20:00 AM EDT [facility] Name Value Range Interpretation Code Description Data Giovana rce(s) Supporting Document(s) Lipoprotein lipase [Enzymatic activity/volume] in Serum or Plasma 149 [facility]) ID Date Data Source [id number] 10/12/2020 09:20:00 AM EDT [facility]) Name Value Range Interpretation Code Description Data Giovana rce(s) Supporting Document(s) White Blood Count 10 4.0-10.0 [facility] ([facility] Red Blood Count 5.87 4.30-6.10 [facility] ([facility]) Hematocrit 52.5 [facility] ([facility]) Hemoglobin 17.1 [facility] ([facility]) Platelets 224 150-450 [facility] ([facility]) ID Date Data Source [id number] 10/12/2020 09:20:00 AM EDT [facility] Name Value Range Interpretation Code Description Data Giovana rce(s) Supporting Document(s) Troponin Laboratory test result [facility] ([facility]) ID Date Data Source [id number] 10/12/2020 09:20:00 AM EDT [facility]) Name Value Range Interpretation Code Description Data Giovana rce(s) Supporting Document(s) Creatine kinase [Enzymatic activity/volume] in Serum or Plasma 131 [facility] ([facility]) CPK-MB 1.1 [facility] ID Date Data Source [id number] 10/12/2020 09:20:00 AM EDT [facility] ([facility]) Name Value Range Interpretation Code Description Data Giovana rce(s) Supporting Document(s) Aspartate aminotransferase [Enzymatic activity/volume] in Se rum or Plasma 45 7-37 [facility] ([facility]) Alanine aminotransferase [Enzymatic activity/volume] i n Serum or Plasma 62 30-65 12-78 [facility] ([facility] Alk Phos 101 50-136 [facility] ([facility] Albumin 3.9 3.2-5.2 [facility] ([facility] Total Protein 8.4 6.4-8.2 [facility] [place] Total Bilirubin 0.4 0.0-1.0 [facility] A/G Ratio 0.9 1.00-1.93 [facility] ([facility]) ID Date Data Source [id number] 10/07/2020 09:14:00 AM EST [facility] ([facility]) Name Value Range Interpretation Code [...] or Plasma 113 [facility] ([facility] Potassium [Moles/volume] in Serum or Plasma 4.0 [facility] ([facility]) Alkaline phosphatase [Enzymatic activity/volume] in Serum or Plasma 8 4 [facility] ([facility]) Sodium 144 [facility] ([facility] Protein [Mass/volume] in Serum or Plasma 7.1 [facility] Aspartate aminotransferase [Enzymatic activity/volume] in Serum or Plasma 23 [facility] ([facility]) Glucose 95 70-100 [facility] ([facility] [facility]) Urea nitrogen [Mass/volume] in Serum or Plasma 9 [facility] Creatinine For GFR 0.85 [facility] ([facility]) ID Date Data Source [id number] 10/05/2020 09:45:00 AM EST [facility] Name Value Range Interpretation Code Description Data Giovana rce(s) Supporting Document(s) SARS coronavirus 2 RNA Not Detected [facility] This lab was ordered by [facility] and reported by [facility]. ID Date Data Source [id number] 08/09/2020 02:33:00 PM EST [facility] Name Value Range Interpretation Code Description Data Giovana rce(s) Supporting Document(s) SARS-CoV-2 (COVID 19) NEGATIVE - SARS-CoV-2 (COVID19) [facility] This lab was ordered by [facility] a nd reported by [facility]. ID Date Data Source [id number] 07/31/2020 05:40:00 PM EST [facility] Name Value Range Interpretation Code Description Data Giovana rce(s) Supporting Document(s) SARS coronavirus 2 RNA [Presence] in Res piratory specimen by ADONAY with probe detection [facility] This lab was ordered by [facility] a nd reported by [facility]. ID Date Data Source [id number] 06/28/2020 01:51:39 PM EST [facility] Name Value Range Interpretation Code Description Data Giovana rce(s) Supporting Document(s) Progress Note [facility] FUYJYz2vVyEPDlLb53/GXFqhQISdj2LbLYgfXMg8OUptXNWeR8RuNUM0qM8gRFB1SAyLQfSkLlYvMkMn lbm [file] ICAgICAgICAgICAgICAgICAgICAgICAgICAgICAgICAgICAgICAgICAgICAgICAgICAgICAgICAgICAg ICAgICAgICAgICAgICAgICAgICAgICANCiAgICAgIC AgICAgICAgICAgICAgICAgICAgICAgICAgICAgICAgICAgICAgICAgICAgICAgICAgICAgICAgICAgIC AgICAgICAgICAgICAgICAgICAgICAgICAgICAgICAgICANCiAgICAgICAgICAgICAgICAgICAgICAgIC AgICAgICAgICAgICAgICAgICAgICAgICAgICAgICAg ICAgICAgICAgICAgICAgICAgICAgICAgICAgICAgICAgICAgICAgICAgICANCiAgICAgICAgICAgICAg ICAgICAgICAgICAgICAgICAgICAgICAgICAgICAgICAgICAgICAgICAgICAgICAgICAgICAgICAgICAg ICAgICAgICAgICAgICAgICAgICAgICAgICANCiAgIC AgICAgICAgICAgICAgICAgICAgICAgICAgICAgICAgICAgICAgICAgICAgICAgICAgICAgICAgICAgIC AgICAgICAgICAgICAgICAgICAgICAgICAgICAgICAgICAgICANCiAgICAgICAgICAgICAgICAgICAgIC AgICAgICAgICAgICAgICAgICAgICAgICAgICAgICAg ICAgICAgICAgICAgICAgICAgICAgICAgICAgICAgICAgICAgICAgICAgICAgICANCiAgICAgICAgICAg ICAgICAgICAgICAgICAgICAgICAgICAgICAgICAgICAgICAgICAgICAgICAgICAgICAgICAgICAgICAg ICAgICAgICAgICAgICAgICAgICAgICAgICAgICANCi AgICAgICAgICAgICAgICAgICAgICAgICAgICAgICAgICAgICAgICAgICAgICAgICAgICAgICAgICAgIC AgICAgICAgICAgICAgICAgICAgICAgICAgICAgICAgICAgICAgICANCiAgICAgICAgICAgICAgICAgIC AgICAgICAgICAgICAgICAgICAgICAgICAgICAgICAg ICAgICAgICAgICAgICAgICAgICAgICAgICAgICAgICAgICAgICAgICAgICAgICAgICANCiAgICAgICAg ICAgICAgICAgICAgICAgICAgICAgICAgICAgICAgICAgICAgICAgICAgICAgICAgICAgICAgICAgICAg ICAgICAgICAgICAgICAgICAgICAgICAgICAgICAgIC ANCjw/uHCmR0ozrWMwmdI0F0ctEe9VXi9AVP1hn4NiAZCoWPfebtNbPkpBUfUuCONiXcoZVrb3CBqiZO 0MoLRwZ7FlG3UgLBwqIB4IAGByVFLyqNQtGCBuYSIjCoE4WPLpUTftNT0WsPXsVYpqYTIgOAYuJgFnFB BiCJ0KXKZxA758zzIjGe5QJu1QHzNiIN6zvi9HBphx FURoQdeCAar6AJsuWA8JtFZzhVPsMZFtOKYIVkAuY2pms1AlLqokZRKJPYakNB4Ly8SukGAgVSy+Pg0K AY0ng0WdIUqvMHMsFN4uha5SCIcYJjRoY6OdrNdlCHInx7ufYBPzCA5ypFSqATQ2OJKga6S8LS8mHqSk ejIcv7RpMtUqRrqyXMEhGSJpFFQpBl9xWNHxRUHqAl XvKMQXDZ5SOCXdBQFuaIYgVOMyOYCNWM4JQZcxUEH0BQSqoxKtmUNwHEadFT3IAPBtexHmWaphOCKWED o+Ok7USF4dl0DrZLddMUKaVD7awj2LQTmBIzMpX5Q5gFSzF0A5APuyNp9IVLKwMSBkAfXoTWLAIDdxCY 2ZTD6amiF9JO4VqPPgCWSuWTXivEOxVEt7R54mzVKa FPugEI2VDIY+Janeen+Qo9QRJNiZNAzJSLoYuHmBIVFBhIaV9NoA9YMz1JhM6JkRF67iIzyezBxMDznBV1W FY3aHZImJJTATE6HjZHynP6uxyPdVqPvJSYNBeFqQ27nkKXnKAJzSRR5POHkPi6HGECxU1CuzuUunDpv bwQbLPTkOJUNYH0MLFcwrvMhwUSrqHriVR25gIhkIJ 5AKc6YGoWrSD7kjt6NbZSwHj9OONGcGR7JKTJrGYUlKXFlBDG9KCSgQjEhVTldMZByPVHoDHX9EQOwIJ GqUL4WPyBhSVIoZsO2NMDyYLGwFMBxap7NDTZlLOFsAnC5CnNaQJXnWNWsEFptFOVuFFNgDBE9PWTfLF SaPI4RAgOdJFRzUMP8AVNuOXIwQDWijj0WQYEsYJGm DCB1ZiSzXZRyLVMrSIzfAICvXIJ9OMScNZPlKLNoXQ3EJnYhVSNwULynIQGaHIDjDANycq5JSSTuQJFt DTT8JoBeANIlWTHaLYmxUNZkBKA6LgS6VTEmSXSwPZ8DImCkBTLsCQx2TZOpKGHiJBXmlw0YRESwAVUh LIB1AECmXVMmYUYuYFsiSDMmFHV9OdNeERXjPNHgVH 8KFvNjBVMaJWr6VOsnMJXoTWHoco6LLEHwSXCuQZJ6AYAfCTCmNPTcLUfhIVBtAINqPNSkDTNfZLBxMS 8GIbOkPSDsUtE1DywcRARcZEXiye0MZOGyIKImAlOdDYEwTJBmMPYuOJxoYYDxNXGuXFW9ZVTlNXNfFE 5KRcBtTWVtSkIqIGbrCNFxMSDkjd9KBTZyHNDrPeW6 OMLgSUSxJDBkMQruNIVvGXLdPOb4ZONhJAUuPM8LAvZjVODbGnE0MCigCQHcACXqpq6VRCItJWWfRAHi DrQyUWKcFNBuRXumEXOrHUG9Hng5ZBKeZIGjEX8JSkNhGSRyTqKaUIgwKIHmVVVbyx7ZGDAfTBFkThF3 PYHuAVPqWTZfHXefMNCuYFX5GqIiHQZtTYRvOT2YTj LwIDWnBqY2GBckFKTiMGXduu7TbHYqtSlkyo7FABxCYf4YqJkjHMAkRRzxDq4qdHHkCNItNTGOTz4Qds JfZMItZEVJJWqlDQVhUFYjGsDhXxIcNwG3EVNlDOP1FQUsKdrrTwOnWnCeLKQiIrR0YQLrPNEkALOrZI YoO8UzFxumFYPgSKZ0XBZkDLA9AaQ+LS8pFTz+Fo4Ku2CihaE6xyLfBEufAzEzWk7FZRWVO8TXNl== ID Date Data Source [id number] 06/06/2020 03:12:03 PM [facility] Name Value Range Interpretation Code Description Data Giovana rce(s) Supporting Document(s) Progress Note [facility] JESWOl0dBlPXZeEm75/IKItuGDGoe2CiKEfpZIx5YRiiIMBfO6KmQJD2oF3fVRE9PVxSVpWzShTdQPLf lbm [file] ICAgICAgICAgICAgICAgICAgICAgICAgICAgICAgICAgICAgICAgICAgICAgICAgICAgDQogICAgICAg ICAgICAgICAgICAgICAgICAgICAgICAgICAgICAgIC AgICAgICAgICAgICAgICAgICAgICAgICAgICAgICAgICAgICAgICAgICAgICAgICAgICAgICAgICAgIC AgDQogICAgICAgICAgICAgICAgICAgICAgICAgICAgICAgICAgICAgICAgICAgICAgICAgICAgICAgIC AgICAgICAgICAgICAgICAgICAgICAgICAgICAgICAg ICAgICAgICAgICAgDQogICAgICAgICAgICAgICAgICAgICAgICAgICAgICAgICAgICAgICAgICAgICAg ICAgICAgICAgICAgICAgICAgICAgICAgICAgICAgICAgICAgICAgICAgICAgICAgICAgICAgDQogICAg ICAgICAgICAgICAgICAgICAgICAgICAgICAgICAgIC AgICAgICAgICAgICAgICAgICAgICAgICAgICAgICAgICAgICAgICAgICAgICAgICAgICAgICAgICAgIC AgICAgDQogICAgICAgICAgICAgICAgICAgICAgICAgICAgICAgICAgICAgICAgICAgICAgICAgICAgIC AgICAgICAgICAgICAgICAgICAgICAgICAgICAgICAg ICAgICAgICAgICAgICAgDQogICAgICAgICAgICAgICAgICAgICAgICAgICAgICAgICAgICAgICAgICAg ICAgICAgICAgICAgICAgICAgICAgICAgICAgICAgICAgICAgICAgICAgICAgICAgICAgICAgICAgDQog ICAgICAgICAgICAgICAgICAgICAgICAgICAgICAgIC AgICAgICAgICAgICAgICAgICAgICAgICAgICAgICAgICAgICAgICAgICAgICAgICAgICAgICAgICAgIC AgICAgICAgDQogICAgICAgICAgICAgICAgICAgICAgICAgICAgICAgICAgICAgICAgICAgICAgICAgIC AgICAgICAgICAgICAgICAgICAgICAgICAgICAgICAg ICAgICAgICAgICAgICAgICAgDQogICAgICAgICAgICAgICAgICAgICAgICAgICAgICAgICAgICAgICAg ICAgICAgICAgICAgICAgICAgICAgICAgICAgICAgICAgICAgICAgICAgICAgICAgICAgICAgICAgICAg AXn3J9abPKIgJMSzDZ7hIIw4Vi6+TOwAQuKyOBX1eg AhnL5FQF1of3TuOVdbIYWin1YeYAs1TL3AQHEbIYeiKJ8EDUlvjd6ICPWvMLHyaFGOg3bkPlZlBGB1SN JsWstvPD5QUGLcY2qnbhKiIMIpZWNZHCuaLBPXFA6XCpFqF0HmaU60WIACQk4+DQplbmRvYmoNCjIxID Rur6UdLLg3UM0SFNIbZqcdw4GxSxBmMDYEENbzFB0U SRX4NQRsMSSeKx4SXAYuB067ngIsEO6DQj1EEtSoAZ9kem7FRuPoRAMhCjrBHrk0TBimEU2GkHQzCErL qc3aowRwluHWt6OqfxIqvZNMtGLmwFYdVXcaZZUVXXHkxJBbON6nQO1vQTQgBBIlQqSlISYAVH6EAWEt PGWgcGOsXGNqEEBYUT1FRVxiTSB4IQNuvgQdxRPaFE toFU1GJHRougOoBrAtNPFMTDm+Ee5GDW1zm1OmCEgpAyRePK5bwu5QCFgTQeNiR6Z4zEKxL4E6ATrxSs 3XBYNpYRYlXTpbTGEACRylXI0QGL0hqdM7MT0UmANfFGWoTFQxrAQyLPo2V57hjRRdIVlcWF0WMXA+Pi A+Tq2NMICcQWWdAQIdAmAcTORKCcMeN3KtZ7TVv8Tb W3TeEZ52kAtbfiRhGXgxWN7DXQ6lHIYgXPZHPO5UyUIikM4dleAuOJDgGHTOVuXpS37btCNoVGGaRKOl PLReUr3GXNYxU3RiamVvjQzkbmJyZRMdJJCUOO2RJFeoriCliTQifZeaMP61iBsoVZ7QMe3ZFjLwDW8q zr2DeZKlMc6RBMFdUH3IJXSgLHVcWWKdMVK9IWImXx WrOHnbJEGgSYOqUPH7MCLlQEXjVO3YFgItZCWrAGbxILCsGRMzWCOlvt6YSHHmOTAjRTC5GKGuKYDjWS SdGNfvABEhZRUtKQI9HIMsMUXbZS2PHuOiEFZeEAD3NCBfRMBmVOUjqp0EJPYgYEGmDaM1RZBmRSTrWR DyFUikEMHmEFX7DNr8DEMqQRPiVJ7DAiPrMQUwVVIc AtcfGLHxXWFqzl9YZWTkKIPwQYKnFYNrLQNgODLbDFvxAJVtFXJ3BFW0KWXuOEHiEH8QMxWgDZJaYZT5 FWDoVRYoOYLojy1XAMAbBPBnZeO8PFZuOKSbGJIcUQtfQTNhNRN8LVe9IOQySEVxPD7JAoEuFAMzCGdm RnJdRWTaSGAupq9EZYMoBBJwXUArVQYuFCQzTFKpBP ixPJLsRHO8JpD6UGYvMUVgLY1WMoVhXUVfKGk0MTXxKTQoKFUigl4YDUPzSKOaJQQ7TORwPBKjUTFhEO znLBYqRPF0WwOxENIyJZKkRK6OAlIxUGHcWFc9EdKwTLSzYJOttn2EARReBCTfDKG1TGWoBQSaITBvDN zgBMKhVGVbBiZ0NKRfPMFsSZ2BHwIgLHEcOmYqNYYr SWRgJMQaxq1WiQHmuDsbnv0VGStBQs0AfDpwZIB4XHucYo4odDTsAuJfBSVGXb3DcwUaFWEmELGGKPqo KPAxXUM6ZWC9WCRgGlGrFBN2QSwhZNH5XIXaEYE8LBLiIdSqYrB9ZTYgJDy5JxJ9U3P2LQJfGXIwQFFk GdB0FLL1ZyN3OsV+SP2aKOe+Lc6Ak4MhguO2obIgFWhjTQJlJs2EGCFSB2FCAx== ID Date Data Source [id number] 05/10/2020 10:14:00 AM EDT [facility] ([facility]) Name Value Range Interpretation Code Description Data Giovana rce(s) Supporting Document(s) Surgical pathology study Laboratory test result [facility] ([facility]) FINAL DIAGNOSIS Esophagus, [...] MD 05/12/2020 1140 ID Date Data Source [id number] 05/09/2020 02:17:55 PM EDT [facility] Name Value Range Interpretation Code Description Data Giovana rce(s) Supporting Document(s) Progress Note [facility] VZESGt2aZxXHXtYl69/ZNBciQFUba0ZkQExwPSn7LHncZJYxH9SaMEV3mZ0gYOK0NLyOZkLkLeDxASIn [facility] [file] ICAgICAgICAgICAgICAgICAgICAgICAgICAgICAgICAgICAgICAgICAgICAgICAgICAgICAgICAgICAg ICAgICAgICAgICAgICAgICAgICAgICAgICAgICAgICAgDQogICAgICAgICAgICAgICAgICAgICAgICAg ICAgICAgICAgICAgICAgICAgICAgICAgICAgICAgIC AgICAgICAgICAgICAgICAgICAgICAgICAgICAgICAgICAgICAgICAgICAgDQogICAgICAgICAgICAgIC AgICAgICAgICAgICAgICAgICAgICAgICAgICAgICAgICAgICAgICAgICAgICAgICAgICAgICAgICAgIC AgICAgICAgICAgICAgICAgICAgICAgICAgDQogICAg ICAgICAgICAgICAgICAgICAgICAgICAgICAgICAgICAgICAgICAgICAgICAgICAgICAgICAgICAgICAg ICAgICAgICAgICAgICAgICAgICAgICAgICAgICAgICAgICAgDQogICAgICAgICAgICAgICAgICAgICAg ICAgICAgICAgICAgICAgICAgICAgICAgICAgICAgIC AgICAgICAgICAgICAgICAgICAgICAgICAgICAgICAgICAgICAgICAgICAgICAgDQogICAgICAgICAgIC AgICAgICAgICAgICAgICAgICAgICAgICAgICAgICAgICAgICAgICAgICAgICAgICAgICAgICAgICAgIC AgICAgICAgICAgICAgICAgICAgICAgICAgICAgDQog ICAgICAgICAgICAgICAgICAgICAgICAgICAgICAgICAgICAgICAgICAgICAgICAgICAgICAgICAgICAg ICAgICAgICAgICAgICAgICAgICAgICAgICAgICAgICAgICAgICAgDQogICAgICAgICAgICAgICAgICAg ICAgICAgICAgICAgICAgICAgICAgICAgICAgICAgIC AgICAgICAgICAgICAgICAgICAgICAgICAgICAgICAgICAgICAgICAgICAgICAgICAgDQogICAgICAgIC AgICAgICAgICAgICAgICAgICAgICAgICAgICAgICAgICAgICAgICAgICAgICAgICAgICAgICAgICAgIC AgICAgICAgICAgICAgICAgICAgICAgICAgICAgICAg DQogICAgICAgICAgICAgICAgICAgICAgICAgICAgICAgICAgICAgICAgICAgICAgICAgICAgICAgICAg CNQiFLYvZCXaKBAgMRUfSLYpBFHpERGeQMQlCVKeJBQvNZYpQULqFOWoAJr8L7oyOEBkIUBmBL2wPBe3 Jz8+IMmQMtGbRDH6dgLsdA1MXL8iv4PkYLcjXJIdk5 QmZTb4FX2RIPIuUEpnAI7NGRfhox4JTSAgXWYvkJIZh1kyRaArFRQ7ZUJaKrlsPD3TEBGsD3peicLnEB ZkCLMGZOrqVKYEIImcXUFNNDEbRILwCzYsGFmcVO7Fc8ZbiEX6DJr+Ic8JXJ2vy0UsJSkdCQKyFH3foh 4YZLgXZhOxT0NvazS0KMFpKMWxNg7ZVYFnOYAmhIHh XdOhEIKOIzJhG9LvjZ18JAFTGr5+GPufnqXyJrrWZhFbPKFph0YyOXd3UP1NYDToJMt7bEGyKDKzI1Mj j4UtTe42WIBbImjiN0SvjJsvhiXTHUNuEPzahWlaWN0QZLU0ESTvHxPtGjTcLnBbRBA6SMOfRW7oRTys ZJ1RGPQ1JWqmRCIzXFEwU4lXOsNpRQUmHYVziJicCG 7UCpMwF4OzqsQqmEVrCQIpFBWRRs1+ZVeivwZrEhjRGhRcABWfk2MbCIr0KY5MWVZzAZoiJZ1JRRJwhS 1qJKhwTN1LKsUkWSQiNPRQNyDlJ90uvAOyWEy3U3AdHiPbYVPkHollGUBwWWqaPhChNUPzPaLjPRhkMM 4+ID4+QNxtNT3PMXnnaeQmPYBjRp0TGEFmBHVbQX0l IOOrPJMgN2A1bMhkEWETAaXqL1tpbcviPP2iLFRhK523fCdnhySaTFMvNZAaRp2WSJKkSBS7HLXzeLNt QgMyUDAPJMyoBB6YmRXrHAS5lE4lYDnbOYDqMWNjK7uOOnMtoEarZU49sWqwrhYksZFpDOh+Mu5VZA1z q9NoUSd3rqPfQAjiUNA8KEkmXYGkPXGdUXXvZXK4BT C0SHXXNkSfCLEmQDSdORbeCOLeOYEaap0RATHxAOT8Uta6REYrSJPhOEUnXBfsVKBbQTF7IOc3IFRqIN UxRW4XViYbRNQmLJVjJWucOUQlPJLdtx0CZDXkEVLnTqE3BaAyRWMwIZNfOXbzECDoIVLuBQBuUAZvYD NaJP4FHgNuOESiYRubAISrSLWeJUDazg4UPKXwBTHe WqH7VhXxPBRqSFHiPPsdJSNiUXGtAuU0IEMsVIKqLD1GToQqKMRzUAP9XnVqADOmDZQivr0FTSFjJPOq CrVlDEGkQDXpDIQdCVohYJEpSLAmAsW6MTRrXOInGU1KQrXoXIWgEZYvABHrRPFoSSIlag5LDKHxVFCz WIH6LTQmIOUyDGOsSZekPMTjAEM1WpB9XTSvFVCvBL 9XQlClTPYsXSD0JoOtBTEzAXJkqz6OQMJhWKNyUZpnXYMcDWAlJUTvSAskITXoNZK8EGOqWFFnAHUiVK 9NBbNjPLGrBIfoXWYiDZInXGVolb1QSITyFJD7LSd5VpXpZKSuKKLkGKxmUXGwBLKmKgWfVNUxJOEmXH 5MHrUdZSVfTBTuEpXxVPBmEKCukr4TLJGkKXH9LIHw DpDbFKEnBKPzQCqlDPXwLGNjDJVnKBFdGFTkJY3DXvJsPHSiAKAbDUJuCMTaOTTipn4QLKZsCGF9UqEq YtNpWCKlFEMwTUplLACzKXJjJAX5MCMwAJNaXE1TEzNkMWWjRZA0DGIlJHGxTCYzuw0QVCQfPOJ1Fnsa BsIdQHYyDZAsFBquNZYsDFC9QdJ0OYKfKDIpKJ1YAp QtWHNgIHU6GLVoVPJuSQPdnz7VPSDqDGK2CCh9SgSkTVNkCNMpZGnjAKEsTQT8FSJ9SQIeBRTtHV1AXh CfFFghSKMYLcm8UCgzB7r3MAXdVA3EV3Dnt5UkGnToUQMCYItnLJ3hhaNeDODsCg4NG1zOIqj9PIGiJ2 FdOlBnLOT6ZImrKgHmTvU3AiblSqZiUfF4RR3uWSCk TXF8JZSkWuB8PGJlUHP8ATTfQYYmDQOxD3PuXHemFyNgEH1XGv2GHoK3ZEG3cAYoCu7BVXDwWQKCUqRi JL0DIJt= ID Date Data Source [id number] 05/05/2020 11:55:00 AM EDT [facility] Name Value Range Interpretation Code Description Data Giovana rce(s) Supporting Document(s) SARS coronavirus 2 RNA [facility] This lab was ordered by [facility] and reported by [facility]. ID Date Data Source [id number] 04/27/2020 06:09:28 AM EDT [facility] XR FOOT 3 OR MORE VIEWS [id number] RESUL TInterpreted by:INGRID Smithight ankle 2 views [...] rce(s) Supporting Document(s) ID Date Data Source [id number] 04/27/2020 06:09:28 AM T [facility] XR ANKLE 2 VIEWS [id number] RESULTInterp reted by:INGRID Smithight ankle 2 views [...] rce(s) Supporting Document(s) ID Date Data Source [id number] 04/26/2020 04:20:41 PM EDT [facility] Name Value Range Interpretation Code Description Data Giovana rce(s) Supporting Document(s) Progress Note [facility] QVUQNh5cJlTGRvDx14/KSVfhXXZzm0WeLLseBKo4YSjcWQDsP0ZySTV1sV4vADT7XUsREwUdAwWeWAAv lbm [file] uwVkVoXD6UDm5FXeN2LYW6hQVbAh0KDxB9PzvLOcAbYH4XUVd= Procedure Social History Code Duration Value Status Description Data Source(s ) Alcohol intake 03/23/2021 12:00:00 AM EDT Current non-d roscoe of alcohol (finding) completed Current non-drinker of alcohol (finding) [facility] Tobacco use and exposure 03/23/2021 12:00:00 AM EDT Never used co mpleted Never used [facility] Smoking 03/23/2021 12:00:00 AM EDT Never smoker completed Never s moker [facility] Alcohol intake 02/20/2021 12:00:00 AM EDT Current non-d roscoe of alcohol (finding) completed Current non-drinker of alcohol (finding) [facility] Alcohol intake 02/14/2021 12:00:00 AM EDT Current non-d roscoe of alcohol (finding) completed Current non-drinker of alcohol (finding) [facility] Alcohol intake 01/30/2021 12:00:00 AM EDT Current non-d roscoe of alcohol (finding) completed Current non-drinker of alcohol (finding) [facility] Alcohol intake 01/09/2021 12:00:00 AM EDT Current non-d roscoe of alcohol (finding) completed Current non-drinker of alcohol (finding) [facility] Alcohol intake 12/26/2020 12:00:00 AM EDT Current non-d roscoe of alcohol (finding) completed Current non-drinker of alcohol (finding) [facility] 12/12/2020 12:00:00 AM EDT Denies Smoking completed Denie s Smoking [facility] ([facility] ) Alcohol intake 11/28/2020 12:00:00 AM EDT Current non-d roscoe of alcohol (finding) completed Current non-drinker of alcohol (finding) [facility] Smoking 10/30/2020 12:00:00 AM EDT Patient has never smoked co mpleted Patient has never smoked [facility] ([facility]) Alcohol intake 06/28/2020 12:00:00 AM EST Current non-d roscoe of alcohol (finding) completed Current non-drinker of alcohol (finding) [facility] Alcohol intake 06/06/2020 12:00:00 AM EST Current non-d roscoe of alcohol (finding) completed Current non-drinker of alcohol (finding) [facility] Alcohol intake 05/09/2020 12:00:00 AM EDT Current non-d roscoe of alcohol (finding) completed Current non-drinker of alcohol (finding) [facility] Alcohol intake 04/26/2020 12:00:00 AM EDT Current non-d roscoe of alcohol (finding) completed Current non-drinker of alcohol (finding) [facility] Vital Signs ID Date Data Source UNK Name Value Range Interpretation Code Description Data Source(s) Diastolic blood pressure 88 mm[Hg] 88 mm[Hg] eCW1 ([facility]) Body weight 381.8 [lb_av] 381.8 [lb_av] eCW1 ([facility]) Body height 71 [in_i] 71 [in_i] eCW1 ([facility]) Body mass index (BMI) [Ratio] 53.24 kg/m2 53.24 kg/m2 eCW1 ([facility]) Heart rate 107 /min 107 /min eCW1 ([facility] Respiratory rate 18 /min 18 /min eCW1 ([facility]) Body temperature 97.0 [degF] 97.0 [degF] eCW1 ( [facility]) Systolic blood pressure 128 mm[Hg] 128 mm[Hg] e CW1 ([facility]) Body weight 175.543 kg 175.543 kg [facility] [place] body weight 172 [lb_av] 172 [lb_av] MEDEN T ([facility]) Body surface area Derived from formula 2.79 m2 2.79 m2 [facility] ([facility]) Diastolic blood pressure 90 mm[Hg] 90 mm[Hg] [facility] ([facility]) Systolic blood pressure 130 mm[Hg] 130 mm[Hg] [facility] ([facility]) Heart rate 103 /min 103 /min [facility] ([facility]) Oxygen saturation in Arterial blood by Pulse oximetry 98 % 98 % [facility] ([facility]) Body height 71 [in_i] 71 [in_i] [facility] ([facility]) 5'11" Body weight 387.00 [lb_av] 387.00 [lb_av] MED[facility] T ([facility]) Body mass index (BMI) [Ratio] 54.0 kg/m2 54.0 k g/m2 [facility] ([facility]) Systolic blood pressure 138 mm[Hg] 138 mm[Hg] [facility] ([facility]) Body height 71 [in_i] 71 [in_i] [facility] ([facility]) 5'11" Body surface area Derived from formula 2.80 m2 2.80 m2 [facility] ([facility]) Diastolic blood pressure 74 mm[Hg] 74 mm[Hg] [facility] ([facility]) Body weight 390.25 [lb_av] 390.25 [lb_av] MED[facility] T ([facility]) Body mass index (BMI) [Ratio] 54.4 kg/m2 54.4 k g/m2 [facility] ([facility]) [place] body weight 172 [lb_av] 172 [lb_av] [facility] T ([facility]) Body weight 177.017 kg 177.017 kg [facility] ([facility]) Body weight 394.00 [lb_av] 394.00 [lb_av] MEDEN T ([facility]) Body height 71 [in_i] 71 [in_i] [facility] 5'11" Body mass index (BMI) [Ratio] 54.9 kg/m2 54.9 k g/m2 [facility] ([facility]) Heart rate 79 /min 79 /min [facility] ([facility]) Systolic blood pressure--sitting 103 mm[Hg] 103 mm[Hg] [facility] ([facility]) [employer], XL Cuff, Ra Diastolic blood pressure--sitting 71 mm[Hg] 71 mm[Hg] [facility] ([facility]) [employer], XL Cuff, Ra Body weight 402 [lb_av] 402 [lb_av] eCW1 ([facility]) Body height 71 [in_i] 71 [in_i] eCW1 ([facility]) Body mass index (BMI) [Ratio] 56.06 kg/m2 56.06 kg/m2 eCW1 ([facility]) Heart rate 103 /min 103 /min eCW1 ([facility]) Respiratory rate 18 /min 18 /min eCW1 ([facility]) Body temperature 97.3 [degF] 97.3 [degF] eCW1 ( [facility]) Systolic blood pressure 128 mm[Hg] 128 mm[Hg] e CW1 ([facility]) Diastolic blood pressure 86 mm[Hg] 86 mm[Hg] eCW1 ([facility]) Body weight 384 [lb_av] 384 [lb_av] eCW1 ([facility]) Body height 71 [in_i] 71 [in_i] eCW1 ([facility]) Body mass index (BMI) [Ratio] 53.55 kg/m2 53.55 kg/m2 eCW1 ([facility]) Heart rate 111 /min 111 /min eCW1 ([facility]) Respiratory rate 18 /min 18 /min eCW1 ([facility]) Body temperature 97.3 [degF] 97.3 [degF] eCW1 ( [facility]) Systolic blood pressure 126 mm[Hg] 126 mm[Hg] e CW1 ([facility]) Diastolic blood pressure 88 mm[Hg] 88 mm[Hg] eCW1 ([facility]) Systolic blood pressure 120 mm[Hg] 120 mm[facility]Hg[facility] Body mass index (BMI) [Ratio] 56.8 kg/m2 56.8 k g/m2 [facility] ([facility]) Diastolic blood pressure 60 mm[Hg] 60 mm[Hg] [facility] ([facility]) Body height 71 [in_i] 71 [in_i] [facility] ([facility]) 5'11" Body weight 407.00 [lb_av] 407.00 [lb_av] [facility] ([facility]) Body surface area Derived from formula 2.85 m2 2.85 m2 [facility] ([facility]) [place] body weight 172 [lb_av] 172 [lb_av] [facility] ([facility]) Body weight 184.615 kg 184.615 kg [facility] ([facility]) Body weight 406 [lb_av] 406 [lb_av] eCW1 ([facility]) Body height 71 [in_i] 71 [in_i] eCW1 ([facility]) Body mass index (BMI) [Ratio] 56.62 kg/m2 56.62 kg/m2 W1 ([facility]) Heart rate 112 /min 112 /min eCW1 ([facility]) Respiratory rate 18 /min 18 /min eCW1 ([facility]) Body temperature 96.7 [degF] 96.7 [degF] eCW1 ( [facility]) Systolic blood pressure 116 mm[Hg] 116 mm[Hg] e CW1 ([facility]) Diastolic blood pressure 80 mm[Hg] 80 mm[Hg] eCW1 ([facility]) Body surface area Derived from formula 2.86 m2 2.86 m2 [facility] ([facility]) Systolic blood pressure 154 mm[Hg] 154 mm[facility]Hg[facility] Diastolic blood pressure 88 mm[Hg] 88 mm[Hg] [facility] ([facility]) Body height 71 [in_i] 71 [in_i] [facility] ([facility]) 5'11" Body weight 409.12 [lb_av] 409.12 [lb_av] [facility] ([facility]) Body mass index (BMI) [Ratio] 57.1 kg/m2 57.1 k g/m2 [facility] ([facility]) [place] body weight 172 [lb_av] 172 [lb_av] [facility] ([facility]) Body weight 185.579 kg 185.579 kg [facility] ([facility]) Systolic blood pressure 122 mm[Hg] 122 mm[Hg] [facility] ([facility]) Diastolic blood pressure 80 mm[Hg] 80 mm[Hg] [facility] ([facility]) Heart rate 99 /min 99 /min [facility] ([facility]) Oxygen saturation in Arterial blood by Pulse oximetry 99 % 99 % [facility] ([facility]) Body temperature 96.8 [degF] 96.8 [degF] [facility] ([facility]) Body height 69 [in_i] 69 [in_i] [facility] ([facility]) 5'9" Body weight 406.00 [lb_av] 406.00 [facility]_av[facility] Body mass index (BMI) [Ratio] 59.9 kg/m2 59.9 k g/m2 [facility] ([facility]) [place] body weight 160 [lb_av] 160 [lb_av] [facility] Body weight 184.162 kg 184.162 kg [facility] ([facility] Body surface area Derived from formula 2.79 m2 2.79 m2 [facility] ([facility]) Body weight 411 [lb_av] 411 [lb_av] eCW1 ([facility]) Body height 71 [in_i] 71 [in_i] eCW1 ([facility]) Body mass index (BMI) [Ratio] 57.32 kg/m2 57.32 kg/m2 eCW1 ([facility]) Heart rate 101 /min 101 /min eCW1 ([facility]) Respiratory rate 18 /min 18 /min eCW1 ([facility]) Body temperature 97.1 [degF] 97.1 [degF] eCW1 ( [facility]) Systolic blood pressure 132 mm[Hg] 132 mm[Hg] e CW1 ([facility]) Diastolic blood pressure 86 mm[Hg] 86 mm[Hg] eCW1 ([facility]) Body weight 414 [lb_av] 414 [lb_av] eCW1 ([facility]) Body height 71 [in_i] 71 [in_i] eCW1 ([facility]) Body mass index (BMI) [Ratio] 57.73 kg/m2 57.73 kg/m2 eCW1 ([facility]) Heart rate 115 /min 115 /min eCW1 ([facility]) Respiratory rate 19 /min 19 /min eCW1 ([facility]) Body temperature 96.4 [degF] 96.4 [degF] eCW1 ( [facility]) Systolic blood pressure 138 mm[Hg] 138 mm[Hg] e CW1 ([facility]) Diastolic blood pressure 86 mm[Hg] 86 mm[Hg] eCW1 ([facility]) Body weight 426 [lb_av] 426 [lb_av] eCW1 ([facility]) Body height 71 [in_i] 71 [in_i] eCW1 ([facility]) Body mass index (BMI) [Ratio] 59.41 kg/m2 59.41 kg/m2 eCW1 ([facility]) Systolic blood pressure 136 mm[Hg] 136 mm[Hg] e CW1 ([facility]) Diastolic blood pressure 82 mm[Hg] 82 mm[Hg] eCW1 ([facility]) Body weight 412 [lb_av] 412 [lb_av] eCW1 ([facility]) Body height 71 [in_i] 71 [in_i] eCW1 ([facility]) Body mass index (BMI) [Ratio] 57.46 kg/m2 57.46 kg/m2 eCW1 ([facility]) Systolic blood pressure 138 mm[Hg] 138 mm[Hg] e CW1 ([facility]) Diastolic blood pressure 92 mm[Hg] 92 mm[Hg] eCW1 ([facility]) ID Date Data Source [id number] 02/22/2021 01:50:02 PM [facility] Value Range Interpretation Code Description Data Source(s) TRANSFER FROM [facility] ID Date Data Source [id number] 02/22/2021 12:00:36 PM [facility] Value Range Interpretation Code Description Data Source(s) WEIGHT RECORDED 370 lb 370 lb [facility] Body height Measured 71 in 71 in [facility] ID Date Data Source [id number] 02/02/2021 10:26:55 AM [facility] Value Range Interpretation Code Description Data Source(s) WEIGHT RECORDED 392 lb 392 lb [facility] Body height Measured 70.98 in 70.98 in [facility] ID Date Data Source [id number] 11/29/2020 01:16:49 PM [facility] Value Range Interpretation Code Description Data Source(s) WEIGHT RECORDED 389 lb 389 lb [facility] Body height Measured 70.98 in 70.98 in [facility] ID Date Data Source [id number] 06/09/2020 09:34:40 AM [facility] Value Range Interpretation Code Description Data Source(s) WEIGHT RECORDED 417.6 lb 417.6 lb [facility] Body height Measured 70.98 in 70.98 in [facility] ID Date Data Source [id number] 05/09/2020 02:17:55 PM [facility] Value Range Interpretation Code Description Data Source(s) WEIGHT RECORDED 407 lb 407 lb [facility] Body height Measured 70.98 in 70.98 in [facility] Patient Treatment Plan of Care Planned Activity Planned Date Details Description Data Source (s) Ciprofloxacin 500 MG Oral Tablet 05/17/2021 12:00:00 AM EDT eCW1 ([facility]) Ibuprofen 600 MG 04/18/2021 01:00:00 AM EDT [facility] ([facility]) Vitamin D-2 50,000 U(1.25 mg) 04/18/2021 01:00:00 AM EDT [facility] ([facility]) Topiramate 200 MG 04/18/2021 01:00:00 AM EDT [facility] ([facility]) oxyCODONE HCl 5 MG 04/18/2021 01:00:00 AM EDT [facility] ([facility]) [facility] Omeprazole 20 MG 04/18/2021 01:00[facility]00 [facility] Montelukast Sodium 10 MG 04/18/2021 01:00:00 AM [facility] Mirtazapine 15 MG 04/18/2021 01:00:00 AM [facility] Methocarbamol 750 MG 04/18/2021 01:00:00 AM [facility] Keppra 500 MG 04/18/2021 01:00:00 AM [facility] AirDuo Digihaler 232-14 MCG/ACT 04/18/2021 01:00:00 AM [facility] Desvenlafaxine ER 100 MG 04/18/2021 01:00:00 AM [facility] Claritin 10 MG 04/18/2021 01:00:00 AM [facility] Aspirin 325 MG 04/18/2021 01:00:00 AM [facility] SM Pain Reliever 325 MG 04/18/2021 01:00:00 [facility] Doxycycline Monohydrate 100 MG 04/18/2021 01:00:00 AM [facility] Sucralfate 1 GM 04/18/2021 01:00:00 AM [facility] ([facility]) Triamcinolone Acetonide 0.1 % 04/18/2021 01:00:00 AM [facility] ([facility]) Trospium Chloride 20 MG 04/18/2021 01:00:00 AM [facility]) POLYETHYLENE GLYCOL 3350 142 MG/ML Oral Solution 02/07/2021 12:00:0 0 AM [facility] Docusate Sodium 100 MG Oral Capsule 02/06/2021 12:00:00 AM [facility] sennosides, LONGTERM 8.6 MG Oral Tablet 02/06/2021 12:00:00 AM [facility] Methocarbamol 750 MG Oral Tablet 02/06/2021 12:00:00 AM [facility] Aspirin 325 MG Delayed Release Oral Tablet 02/06/2021 12:00:00 AM [facility] Oxycodone Hydrochloride 5 MG Oral Tablet 02/06/2021 12:00:00 AM [facility] Magnesium Hydroxide 80 MG/ML Oral Suspension 02/03/2021 10:41:51 AM [facility] Diphenhydramine Hydrochloride 25 MG Oral Capsule 01/31/2021 04:10:4 4 PM [facility] Bisacodyl 10 MG Rectal Suppository 01/30[facility]QU[facility] SEE SIG[facility] XX M [facility] 01/18/2021 12:00:00 AM [facility] (DURABLE MEDICAL EQUIPMENT SEE SIG) XX M [facility] 01/17/2021 12:00:00 AM [facility] trospium chloride 20 MG Oral Tablet 01/10/2021 12:00:00 AM [facility] 24 HR mirabegron 25 MG Extended Release Oral Tablet 01/10/20 12:00:00 AM [facility] Nystatin 100 UNT/MG Topical Powder 11/28/2020 12:00:00 AM [facility] Phenazopyridine hydrochloride 200 MG Delayed Release O ral Tablet 11/28/2020 12:00:00 AM [facility] Acetaminophen 325 MG Oral Tablet [Tylenol] 09/23/2020 12:00:[address] eCW1 ([facility]) MiraLax Mix-In Ruth 17 GM 09/23/2020 12:00:00 AM EST eCW1 ([facility]) Misc. Devices (DURABLE MEDICAL EQUIPMENT SEE SIG) XX M [facility]SC 06/28/2020 12:00:00 AM [facility] Clindamycin 0.01 MG/MG Topical Gel 06/12/2020 12:00:00 AM EST eCW1 ([facility]) Cephalexin 500 MG Oral Capsule 06/06/2020 01:30:00 PM [facility] lidocaine (XYLOCAINE) 2 % urojet 20 mL 06/06/2020 01:30:00 PM [facility] Doxycycline Monohydrate 50 MG Oral Capsule 05/15/2020 12:00:00 AM E DT eCW1 ([facility]) ciclopirox 10 MG/ML Medicated Shampoo 05/15/2020 12:00:00 AM EDT eCW1 ([facility]) alclometasone dipropionate 0.5 MG/ML Topical Cream 05/15/2020 12 :00:00 AM EDT eCW1 ([facility]) Doxycycline Monohydrate 50 MG Oral Capsule 05/15/2020 12:00:00 AM E DT eCW1 ([facility]) ciclopirox 10 MG/ML Medicated Shampoo 05/15/2020 12:00:00 AM EDT eCW1 ([facility]) alclometasone dipropionate 0.5 MG/ML Topical Cream 05/15/2020 12 :00:00 AM EDT eCW1 ([facility]) Doxycycline Monohydrate 50 MG Oral Capsule 05/15/2020 12:00:00 AM E DT eCW1 ([facility]) ciclopirox 10 MG/ML Medicated Shampoo 05/15/2020 12:00:00 AM EDT eCW1 ([facility]) alclometasone dipropionate 0.5 MG/ML Topical Cream 05/15/2020 12 :00:00 AM EDT eCW1 ([facility]) alclometasone dipropionate 0.5 MG/ML Topical Cream 05/15/2020 12 :00:00 AM EDT eCW1 ([facility]) Doxycycline Monohydrate 50 MG Oral Capsule 05/15/2020 12:00:00 AM E DT eCW1 ([facility]) ciclopirox 10 MG/ML Medicated Shampoo 05/15/2020 12:00:00 AM EDT eCW1 ([facility]) Desvenlafaxine Succinate ER 100 MG Oral Tablet Extended Release 24 Hour (PRISTIQ) 04/07/2020 12:00:00 AM EDT [facility] Docusate Sodium 100 MG Oral Capsule [DOK] 04/07/2020 12:00:00 AM ED [facility] Nystatin 100 UNT/MG Topical Powder 03/27/2020 12:00:00 AM [facility] Methocarbamol 750 MG Oral Tablet 06/09/2019 12:00:00 AM [facility] Misc. Devices (DURABLE MEDICAL EQUIPMENT SEE SIG) [facility] 10/09/2018 12:00:00 AM [facility] Doxycycline Monohydrate 100 MG Oral Capsule 10/07/2018 12:00:00 AM [facility] 7 ACTUAT umeclidinium 0.0625 MG/ACTUAT Dry Powder Inha ler [Incruse] 09/24/2018 12:00:00 AM [facility] gabapentin 100 MG Oral Capsule 03/03/2018 12:00:00 AM [facility] maalox/lidocaine/diphenhydrAMINE (RADIATION MIXTURE) 1 :1:1 oral suspension 05/29/2017 12:00:00 AM [facility] Nystatin [id number] UNT/ML Topical Cream 09/27/2015 12:00:00 AM [facility] Vitamin B 12 0.1 MG Oral Tablet [facility] Docusate Sodium 100 MG Oral Capsule [facility] Methocarbamol 750 MG Oral Tablet [facility] Ondansetron 4 MG Oral Tablet [facility] Albuterol Sulfate HFA 108 (90 Base) MCG/ ACT Inhalation Aerosol Solution (PROVENTIL HFA;VENTOLIN HFA) [facility] Ibuprofen 600 MG Oral Tablet [facility] Albuterol 0.83 MG/ML Inhalant Solution [facility] Hydrochlorothiazide 25 MG / Lisinopril 20 MG Oral Tablet [facility] formoterol fumarate 0.01 MG/ML Inhalant Solution [facility] Gemfibrozil 600 MG Oral Tablet [facility] Biotin 10 MG Oral Tablet Ups [facility] Vitamin B 12 0.1 MG Oral Tablet [facility] POLYETHYLENE GLYCOL 3350 142 MG/ML Oral Solution [facility] 14 ACTUAT fluticasone furoate 0.1 MG/ACT UAT / vilanterol 0.025 MG/ACTUAT Dry Powder Inhaler [facility] Sumatriptan 100 MG Oral Tablet [facility] gabapentin 100 MG Oral Capsule [facility] Melatonin 3 MG Oral Tablet [facility] doxycycline hyclate 50 MG Oral Capsule [facility]
[2021-06-02 16:52] LABS: HEMATOCRIT 47.6 % (42.0-52.0); HEMOGLOBIN 14.7 g/dl (13.5-17.5); MEAN CORPUSCULAR HEMOGLOBIN 27.1 pg (27.0-33.0); MEAN CORPUSCULAR HGB CONC 30.9 g/dl (32.0-36.5); MEAN CORPUSCULAR VOLUME 87.7 fl (80.0-96.0); PLATELET COUNT, AUTOMATED 234 10^3/uL (150-450); RED BLOOD COUNT 5.43 10^6/uL (4.30-6.10); WHITE BLOOD COUNT 9.3 10^3/uL (4.0-10.0)
[2021-06-02 17:22] LABS: ALBUMIN 3.3 GM/DL (3.2-5.2); ALT/SGPT 44 U/L (12-78); BILIRUBIN,TOTAL 0.3 MG/DL (0.2-1.0); BLOOD UREA NITROGEN 8 MG/DL (7-18); CALCIUM LEVEL 8.8 MG/DL (8.5-10.1); CARBON DIOXIDE LEVEL 30 MEQ/L (21-32); CHLORIDE LEVEL 108 MEQ/L (98-107); GLOMERULAR FILTRATION RATE > 60.0 (>60); GLUCOSE, FASTING 106 MG/DL (70-100); POTASSIUM SERUM 3.8 MEQ/L (3.5-5.1); SODIUM LEVEL 143 MEQ/L (136-145); TOTAL PROTEIN 7.6 GM/DL (6.4-8.2)
== END 2021-06-02 17:54 | disposition home or self-care (01) ==
LOC: M ED 15:23
DX: K29.70 Gastritis, unspecified, without bleeding (principal); R11.2 Nausea with vomiting, unspecified; G43.909 Migraine, unspecified, not intractable, without status migrainosus; R56.9 Unspecified convulsions; J45.909 Unspecified asthma, uncomplicated; Z88.8 Allergy status to other drugs, medicaments and biological substances; Z79.899 Other long term (current) drug therapy

== ENCOUNTER 2021-06-27 12:23 | Emergency (ER) | payer OTHER ==
[~2021-06-27] VITALS: Ht 180.3 cm; Wt 165.8 kg
[~2021-06-27 12:23] MED LIST changes: -DICY20TA11 PO; +DICY20TA20 PO
[2021-06-27] MEDS ORDERED: ONDANSETRON 4 MG ORAL DISINTEGRATING TAB PO ONE (16:05)
[2021-06-27] MEDS ORDERED: KETOROLAC 60MG 2ML VIAL IM ONE (16:05)
[2021-06-27] MEDS ORDERED: KETO10TAB PO (16:51)
[2021-06-27] MEDS ORDERED: ZOFR4TAB16 PO (16:51)
[2021-06-27 16:54] VITALS: BP 135/81
== END 2021-06-27 17:06 | disposition home or self-care (01) ==
LOC: M ED 12:23
DX: G43.909 Migraine, unspecified, not intractable, without status migrainosus (principal); J45.909 Unspecified asthma, uncomplicated; D43.2 Neoplasm of uncertain behavior of brain, unspecified; K21.9 Gastro-esophageal reflux disease without esophagitis; Z88.5 Allergy status to narcotic agent; Z88.6 Allergy status to analgesic agent; Z88.8 Allergy status to other drugs, medicaments and biological substances
CPT/HCPCS: 96372; 99284; J1885; Q0162

== ENCOUNTER 2021-07-16 14:28 | Emergency (ER) | payer OTHER ==
[~2021-07-16] VITALS: Ht 180.3 cm; Wt 166.4 kg
[~2021-07-16 14:28] MED LIST changes: +DICY20TA11 PO; -DICY20TA20 PO; +KETO10TAB PO; +ZOFR4TAB16 PO
[2021-07-16] MEDS ORDERED: ONDANSETRON 4MG/2ML VIAL IV ONE (16:50)
[2021-07-16] MEDS ORDERED: NS 1,000 ML IV ONE (16:50)
[2021-07-16] MEDS ORDERED: KETOROLAC 30 MG/ML 1ML VIAL IV ONE (16:58)
[2021-07-16 17:59] LABS: BASO % 0.2 % (0.0-1.0); EOS # 0.2 10^3/uL (0.0-0.5); EOS % 1.8 % (0.0-3.0); HEMATOCRIT 51.7 % (42.0-52.0); HEMOGLOBIN 16.7 g/dl (13.5-17.5); LYMPH # 2.2 10^3/uL (1.5-5.0); LYMPH % 20.7 % (24.0-44.0); MEAN CORPUSCULAR HEMOGLOBIN 27.6 pg (27.0-33.0); MEAN CORPUSCULAR HGB CONC 32.3 g/dl (32.0-36.5); MEAN CORPUSCULAR VOLUME 85.3 fl (80.0-96.0); MONO # 0.7 10^3/uL (0.0-0.8); MONO % 6.3 % (2.0-8.0); NEUTROPHILS # 7.6 10^3/uL (1.5-8.5); NEUTROPHILS % 70.7 % (36.0-66.0); PLATELET COUNT, AUTOMATED 294 10^3/uL (150-450); RED BLOOD COUNT 6.06 10^6/uL (4.30-6.10); WHITE BLOOD COUNT 10.8 10^3/uL (4.0-10.0)
[2021-07-16 18:30] LABS: ALBUMIN 3.8 GM/DL (3.2-5.2); ALT/SGPT 44 U/L (12-78); BILIRUBIN,DIRECT < 0.1 MG/DL (0.0-0.2); BILIRUBIN,TOTAL 0.5 MG/DL (0.2-1.0); BLOOD UREA NITROGEN 13 MG/DL (7-18); CALCIUM LEVEL 9.6 MG/DL (8.5-10.1); CARBON DIOXIDE LEVEL 24 MEQ/L (21-32); CHLORIDE LEVEL 110 MEQ/L (98-107); CREATININE FOR GFR 0.92 MG/DL (0.70-1.30); GLOMERULAR FILTRATION RATE > 60.0 (>60); GLUCOSE, FASTING 88 MG/DL (70-100); LIPASE 57 U/L (73-393); POTASSIUM SERUM 5.6 MEQ/L (3.5-5.1); SODIUM LEVEL 140 MEQ/L (136-145); TOTAL PROTEIN 8.5 GM/DL (6.4-8.2)
[2021-07-16] MEDS ORDERED: ACETAMINOPHEN 325 MG TAB PO ONE (19:20)
[2021-07-16 20:35] LABS: BLOOD UREA NITROGEN 13 MG/DL (7-18); CARBON DIOXIDE LEVEL 26 MEQ/L (21-32); CHLORIDE LEVEL 112 MEQ/L (98-107); CREATININE FOR GFR 0.79 MG/DL (0.70-1.30); GLOMERULAR FILTRATION RATE > 60.0 (>60); GLUCOSE, FASTING 93 MG/DL (70-100); POTASSIUM SERUM 3.6 MEQ/L (3.5-5.1); SODIUM LEVEL 144 MEQ/L (136-145)
[2021-07-16 21:13] VITALS: BP 128/80
== END 2021-07-16 22:08 | disposition home or self-care (01) ==
LOC: M ED 14:28
DX: R10.33 Periumbilical pain (principal); K21.9 Gastro-esophageal reflux disease without esophagitis; J45.909 Unspecified asthma, uncomplicated; I10 Essential (primary) hypertension; Z86.69 Personal history of other diseases of the nervous system and sense organs; Z88.5 Allergy status to narcotic agent; Z88.6 Allergy status to analgesic agent; Z88.8 Allergy status to other drugs, medicaments and biological substances; Z91.048 Other nonmedicinal substance allergy status
CPT/HCPCS: 80047; 80048; 80076; 83690; 85025; 96361; 96374; 99284; J1885; J2405

== ENCOUNTER 2021-07-22 00:18 | Emergency (ER) | payer OTHER ==
[~2021-07-22] VITALS: Ht 180.3 cm; Wt 166.7 kg
[~2021-07-22 00:18] MED LIST changes: -DICY20TA11 PO; +DICY20TA20 PO
[2021-07-22] MEDS ORDERED: METOCLOPRAMIDE INJ 10MG/2ML VIAL (J2765 PER 1) IV ONE (06:20)
[2021-07-22] MEDS ORDERED: KETOROLAC 30 MG/ML 1ML VIAL IV ONE (06:20)
[2021-07-22] MEDS ORDERED: NS 1,000 ML IV ONE (06:20)
[2021-07-22] MEDS ORDERED: diphenhydrAMINE 50MG/ML VIAL (J1200) IV ONE (06:20)
[2021-07-22 08:21] LABS: RSV AMPLIFICATION NEGATIVE (NEGATIVE)
[2021-07-22 08:43] LABS: BASO % 0.2 % (0.0-1.0); EOS # 0.2 10^3/uL (0.0-0.5); EOS % 1.4 % (0.0-3.0); HEMATOCRIT 51.7 % (42.0-52.0); HEMOGLOBIN 16.7 g/dl (13.5-17.5); LYMPH # 2.1 10^3/uL (1.5-5.0); LYMPH % 18.9 % (24.0-44.0); MEAN CORPUSCULAR HEMOGLOBIN 27.1 pg (27.0-33.0); MEAN CORPUSCULAR HGB CONC 32.3 g/dl (32.0-36.5); MEAN CORPUSCULAR VOLUME 83.8 fl (80.0-96.0); MONO # 0.7 10^3/uL (0.0-0.8); MONO % 6.3 % (2.0-8.0); NEUTROPHILS # 7.9 10^3/uL (1.5-8.5); NEUTROPHILS % 72.9 % (36.0-66.0); PLATELET COUNT, AUTOMATED 250 10^3/uL (150-450); RED BLOOD COUNT 6.17 10^6/uL (4.30-6.10); WHITE BLOOD COUNT 10.8 10^3/uL (4.0-10.0)
[2021-07-22 09:20] LABS: ALBUMIN 3.8 GM/DL (3.2-5.2); ALT/SGPT 41 U/L (12-78); BILIRUBIN,DIRECT 0.1 MG/DL (0.0-0.2); BILIRUBIN,TOTAL 0.5 MG/DL (0.2-1.0); BLOOD UREA NITROGEN 14 MG/DL (7-18); CALCIUM LEVEL 9.3 MG/DL (8.5-10.1); CARBON DIOXIDE LEVEL 24 MEQ/L (21-32); CHLORIDE LEVEL 109 MEQ/L (98-107); CREATININE FOR GFR 0.88 MG/DL (0.70-1.30); GLOMERULAR FILTRATION RATE > 60.0 (>60); GLUCOSE, FASTING 101 MG/DL (70-100); LIPASE 108 U/L (73-393); POTASSIUM SERUM 4.1 MEQ/L (3.5-5.1); SODIUM LEVEL 140 MEQ/L (136-145); TOTAL PROTEIN 8.5 GM/DL (6.4-8.2)
[2021-07-22] MEDS ORDERED: ONDA4TAB6 PO (10:04)
[2021-07-22] MEDS ORDERED: FLON1SPR NARES (10:04)
[2021-07-22] MEDS ORDERED: AUGM875T28 PO (10:04)
[2021-07-22 10:18] VITALS: BP 132/70
== END 2021-07-22 10:18 | disposition home or self-care (01) ==
LOC: M ED 00:18
DX: J01.90 Acute sinusitis, unspecified (principal); J34.89 Other specified disorders of nose and nasal sinuses; R11.2 Nausea with vomiting, unspecified; J44.9 Chronic obstructive pulmonary disease, unspecified; Z88.6 Allergy status to analgesic agent; Z88.8 Allergy status to other drugs, medicaments and biological substances
CPT/HCPCS: 70450; 80048; 80076; 81001; 83690; 85025; 87631; 96361; 96374; 99284; J1200; J1885; J2765

== ENCOUNTER 2021-07-24 19:09 | Emergency (ER) | payer OTHER ==
[~2021-07-24] VITALS: Ht 180.3 cm; Wt 166.4 kg
[~2021-07-24 19:09] MED LIST changes: +AUGM875T28 PO; +DICY20TA11 PO; -DICY20TA20 PO; +FLON1SPR NARES
[2021-07-24] MEDS ORDERED: SUMAtriptan SUCCINATE 6 MG/0.5 ML VIAL SC ONE (23:15)
[2021-07-24] MEDS ORDERED: HALOPERIDOL 5MG/ML VIAL (J1630 PER 1) IV ONE (23:15)
[2021-07-25 00:30] LABS: BASO % 0.2 % (0.0-1.0); EOS # 0.3 10^3/uL (0.0-0.5); EOS % 2.8 % (0.0-3.0); HEMATOCRIT 51.5 % (42.0-52.0); HEMOGLOBIN 16.5 g/dl (13.5-17.5); LYMPH # 2.8 10^3/uL (1.5-5.0); LYMPH % 27.3 % (24.0-44.0); MEAN CORPUSCULAR HEMOGLOBIN 27.3 pg (27.0-33.0); MEAN CORPUSCULAR VOLUME 85.1 fl (80.0-96.0); MONO # 0.7 10^3/uL (0.0-0.8); MONO % 6.7 % (2.0-8.0); NEUTROPHILS # 6.4 10^3/uL (1.5-8.5); NEUTROPHILS % 62.8 % (36.0-66.0); PLATELET COUNT, AUTOMATED 243 10^3/uL (150-450); RED BLOOD COUNT 6.05 10^6/uL (4.30-6.10); WHITE BLOOD COUNT 10.2 10^3/uL (4.0-10.0)
[2021-07-25 00:33] LABS: ALBUMIN 3.9 GM/DL (3.2-5.2); ALT/SGPT 46 U/L (12-78); BILIRUBIN,TOTAL 0.4 MG/DL (0.2-1.0); BLOOD UREA NITROGEN 11 MG/DL (7-18); CALCIUM LEVEL 9.1 MG/DL (8.5-10.1); CARBON DIOXIDE LEVEL 29 MEQ/L (21-32); CHLORIDE LEVEL 107 MEQ/L (98-107); CREATININE FOR GFR 0.79 MG/DL (0.70-1.30); GLOMERULAR FILTRATION RATE > 60.0 (>60); GLUCOSE, FASTING 102 MG/DL (70-100); LIPASE 102 U/L (73-393); POTASSIUM SERUM 4.3 MEQ/L (3.5-5.1); SODIUM LEVEL 145 MEQ/L (136-145); TOTAL PROTEIN 7.9 GM/DL (6.4-8.2)
[2021-07-25] MEDS: GASTROGRAFIN SOLUTION 30ML PO SCH ×2 (00:50→01:18)
--- NOTE | 2021-07-25 03:40 | REPVR ---
PROCEDURE INFORMATION: Exam: CT Abdomen and Pelvis without Contrast Exam date and time: 07/25/21 (1:40am) Age: 30 years old Clinical indication: Epigastric pain and nausea. Possible dyspepsia, pancreatitis, ulcer. TECHNIQUE: Imaging protocol: Computed tomography of the abdomen and pelvis without contrast Radiation optimization: All CT scans at this facility use at least one of these dose optimization techniques: automated exposure control; mA and/or kV adjustment per patient size (includes targeted exams where dose is matched to clinical indication); or iterative reconstruction. Other contrast: Oral, Gastrografin 300 COMPARISON: CT ABDOMEN PELVIS of 04/21/21 FINDINGS: Liver: Normal. No solid mass. Gallbladder and bile ducts: Most likely S/P cholecystectomy (needs correlation). No ductal dilatation. Pancreas: Normal. No ductal dilatation. Spleen: Mild splenomegaly (unchanged). Adrenal glands: Normal. No mass. Kidneys and ureters: No hydronephrosis. Left lower renal pole cyst, laterally (16 mm size) (faintly seen) (unchanged). Stomach and bowel: Unremarkable. No bowel obstruction. No mucosal thickening. Appendix: Most likely S/P appendectomy (needs correlation). Intraperitoneal space: Unremarkable. No free air. No significant fluid collection. Vasculature: Unremarkable. No abdominal aortic aneurysm. Lymph nodes: Unremarkable. No enlarged lymph nodes. Urinary bladder: Unremarkable as visualized. Reproductive: Unremarkable as visualized. Bones/joints: No acute fracture. Multilevel degenerative lumbar spine changes Soft tissues: Unremarkable. IMPRESSION: No acute findings. Most likely S/P cholecystectomy and appendectomy. Electronically signed by: Freda Laughlin On 07/25/2021 03:40:19 AM
[2021-07-25 04:10] VITALS: BP 128/72
== END 2021-07-25 05:34 | disposition home or self-care (01) ==
LOC: M ED 19:09
DX: R10.9 Unspecified abdominal pain (principal); R11.2 Nausea with vomiting, unspecified; G43.909 Migraine, unspecified, not intractable, without status migrainosus; R56.9 Unspecified convulsions; J45.909 Unspecified asthma, uncomplicated; K21.9 Gastro-esophageal reflux disease without esophagitis; Z79.899 Other long term (current) drug therapy
CPT/HCPCS: 74176; 80053; 83690; 85025; 87040; 96372; 96374; 99284; J1630; Q9963

== ENCOUNTER → 2021-07-26 | Outpatient (CLI) | payer OTHER ==
[2021-07-26 17:48] LABS: HEMOGLOBIN A1c 4.8 %
== END ==
LOC: M PLALAB 15:28
PROVIDERS: ATTEND Student in an Organized Health Care Education/Training Program
DX: E66.01 Morbid (severe) obesity due to excess calories (principal)

== ENCOUNTER 2021-07-29 16:25 | Emergency (ER) | payer OTHER ==
[2021-07-29] MEDS ORDERED: ONDANSETRON 4 MG ORAL DISINTEGRATING TAB PO ONE (19:50)
[2021-07-29 20:10] LABS: BASO % 0.2 % (0.0-1.0); EOS # 0.3 10^3/uL (0.0-0.5); EOS % 3.1 % (0.0-3.0); HEMATOCRIT 52.9 % (42.0-52.0); HEMOGLOBIN 16.7 g/dl (13.5-17.5); LYMPH # 2.5 10^3/uL (1.5-5.0); LYMPH % 23.5 % (24.0-44.0); MEAN CORPUSCULAR HEMOGLOBIN 27.2 pg (27.0-33.0); MEAN CORPUSCULAR HGB CONC 31.6 g/dl (32.0-36.5); MONO # 0.8 10^3/uL (0.0-0.8); NEUTROPHILS # 6.8 10^3/uL (1.5-8.5); NEUTROPHILS % 64.9 % (36.0-66.0); PLATELET COUNT, AUTOMATED 237 10^3/uL (150-450); RED BLOOD COUNT 6.15 10^6/uL (4.30-6.10); WHITE BLOOD COUNT 10.5 10^3/uL (4.0-10.0)
[2021-07-29 20:40] LABS: BLOOD UREA NITROGEN 7 MG/DL (7-18); CALCIUM LEVEL 9.2 MG/DL (8.5-10.1); CARBON DIOXIDE LEVEL 29 MEQ/L (21-32); CHLORIDE LEVEL 108 MEQ/L (98-107); CREATININE FOR GFR 1.02 MG/DL (0.70-1.30); GLOMERULAR FILTRATION RATE > 60.0 (>60); GLUCOSE, FASTING 101 MG/DL (70-100); POTASSIUM SERUM 3.9 MEQ/L (3.5-5.1); SODIUM LEVEL 144 MEQ/L (136-145)
[2021-07-29 21:08] VITALS: BP 135/85
== END 2021-07-29 21:21 | disposition home or self-care (01) ==
LOC: EDBD 16:25 → M ED 16:25
DX: R10.84 Generalized abdominal pain (principal); R30.0 Dysuria; Z79.2 Long term (current) use of antibiotics; Z79.51 Long term (current) use of inhaled steroids; Z79.899 Other long term (current) drug therapy; Z88.6 Allergy status to analgesic agent; Z88.8 Allergy status to other drugs, medicaments and biological substances
CPT/HCPCS: 36415; 80048; 81001; 85025; 99284; Q0162

== ENCOUNTER 2021-09-01 13:57 | Emergency (ER) | payer OTHER ==
[~2021-09-01] VITALS: Ht 180.3 cm; Wt 164.1 kg
[~2021-09-01 13:57] MED LIST changes: -DICY20TA11 PO; +DICY20TA20 PO
[2021-09-01] MEDS ORDERED: ONDANSETRON 4 MG ORAL DISINTEGRATING TAB PO ONE (14:45)
[2021-09-01 15:10] LABS: BASO % 0.2 % (0.0-1.0); EOS # 0.2 10^3/uL (0.0-0.5); EOS % 2.5 % (0.0-3.0); HEMATOCRIT 54.9 % (42.0-52.0); HEMOGLOBIN 17.5 g/dl (13.5-17.5); LYMPH # 1.7 10^3/uL (1.5-5.0); LYMPH % 17.8 % (24.0-44.0); MEAN CORPUSCULAR HEMOGLOBIN 27.3 pg (27.0-33.0); MEAN CORPUSCULAR HGB CONC 31.9 g/dl (32.0-36.5); MEAN CORPUSCULAR VOLUME 85.5 fl (80.0-96.0); MONO # 0.8 10^3/uL (0.0-0.8); MONO % 8.6 % (2.0-8.0); NEUTROPHILS # 6.8 10^3/uL (1.5-8.5); NEUTROPHILS % 70.6 % (36.0-66.0); PLATELET COUNT, AUTOMATED 237 10^3/uL (150-450); RED BLOOD COUNT 6.42 10^6/uL (4.30-6.10); WHITE BLOOD COUNT 9.6 10^3/uL (4.0-10.0)
[2021-09-01 15:27] LABS: ERYTHROCYTE SEDIMENTATION RATE 7 mm/hr (0-15)
[2021-09-01 15:38] LABS: ACETONE/KETONE 0.85 MG/DL (<2.81); ALBUMIN 3.8 GM/DL (3.2-5.2); ALT/SGPT 41 U/L (12-78); BILIRUBIN,DIRECT 0.1 MG/DL (0.0-0.2); BILIRUBIN,TOTAL 0.3 MG/DL (0.2-1.0); BLOOD UREA NITROGEN 12 MG/DL (7-18); C REACTIVE PROTEIN QUANTITATIV 2.04 MG/DL (0.00-0.30); CARBON DIOXIDE LEVEL 27 MEQ/L (21-32); CHLORIDE LEVEL 111 MEQ/L (98-107); CREATININE FOR GFR 0.94 MG/DL (0.70-1.30); GLOMERULAR FILTRATION RATE > 60.0 (>60); GLUCOSE, FASTING 117 MG/DL (70-100); LIPASE 109 U/L (73-393); POTASSIUM SERUM 3.7 MEQ/L (3.5-5.1); SODIUM LEVEL 142 MEQ/L (136-145); TOTAL PROTEIN 8.3 GM/DL (6.4-8.2)
[2021-09-01 15:47] LABS: HEMOGLOBIN A1c 4.7 %
[2021-09-01] MEDS ORDERED: ONDA4TAB6 PO (17:12)
[2021-09-01 17:18] VITALS: BP 167/87
[2021-09-03 10:00] LABS: VITAMIN B12 LEVEL 543 PG/ML (247-911)
== END 2021-09-01 17:20 | disposition home or self-care (01) ==
LOC: M ED 13:57 → EDBD 13:57 → M ED 17:20
DX: R20.2 Paresthesia of skin (principal); R11.2 Nausea with vomiting, unspecified; J45.909 Unspecified asthma, uncomplicated; K21.9 Gastro-esophageal reflux disease without esophagitis; J44.9 Chronic obstructive pulmonary disease, unspecified; G43.909 Migraine, unspecified, not intractable, without status migrainosus; K46.9 Unspecified abdominal hernia without obstruction or gangrene; Z88.5 Allergy status to narcotic agent; Z88.6 Allergy status to analgesic agent
CPT/HCPCS: 36415; 80048; 80076; 81001; 82010; 82607; 83036; 83690; 85025; 85652; 86140; 87086; 99284; Q0162

== ENCOUNTER → 2021-09-05 | Outpatient (CLI) | payer OTHER ==
[~2021-09-05] MED LIST changes: +PROHANCE 279.3MG/ML 15ML VIAL ONE; +PROHANCE 279.3MG/ML 5ML VIAL ONE
== END ==
LOC: M PLAIMG 13:14
PROVIDERS: ATTEND Neurological Surgery
DX: G40.219 Localization-related (focal) (partial) symptomatic epilepsy and epileptic syndromes with complex partial seizures, intractable, without status epilepticus (principal); G93.9 Disorder of brain, unspecified

== ENCOUNTER 2022-02-13 18:31 | Emergency (ER) | payer OTHER ==
[~2022-02-13] VITALS: Ht 180.3 cm; Wt 159.9 kg
[~2022-02-13 18:31] MED LIST changes: -PROHANCE 279.3MG/ML 15ML VIAL ONE; -PROHANCE 279.3MG/ML 5ML VIAL ONE
[2022-02-13 20:40] LABS: BASO % 0.3 % (0.0-1.0); EOS # 0.3 10^3/uL (0.0-0.5); EOS % 2.5 % (0.0-3.0); HEMATOCRIT 50.9 % (42.0-52.0); HEMOGLOBIN 16.4 g/dl (13.5-17.5); LYMPH # 2.2 10^3/uL (1.5-5.0); LYMPH % 18.7 % (24.0-44.0); MEAN CORPUSCULAR HEMOGLOBIN 27.9 pg (27.0-33.0); MEAN CORPUSCULAR HGB CONC 32.2 g/dl (32.0-36.5); MEAN CORPUSCULAR VOLUME 86.7 fl (80.0-96.0); MONO % 8.2 % (2.0-8.0); NEUTROPHILS # 8.4 10^3/uL (1.5-8.5); PLATELET COUNT, AUTOMATED 250 10^3/uL (150-450); RED BLOOD COUNT 5.87 10^6/uL (4.30-6.10); WHITE BLOOD COUNT 11.9 10^3/uL (4.0-10.0)
[2022-02-13 21:28] LABS: ALBUMIN 3.6 GM/DL (3.2-5.2); ALT/SGPT 35 U/L (12-78); BILIRUBIN,DIRECT < 0.1 MG/DL (0.0-0.2); BILIRUBIN,TOTAL 0.3 MG/DL (0.2-1.0); BLOOD UREA NITROGEN 13 MG/DL (7-18); CALCIUM LEVEL 9.3 MG/DL (8.5-10.1); CARBON DIOXIDE LEVEL 25 MEQ/L (21-32); CHLORIDE LEVEL 113 MEQ/L (98-107); CREATININE FOR GFR 0.83 MG/DL (0.70-1.30); GLOMERULAR FILTRATION RATE > 60.0 (>60); GLUCOSE, FASTING 120 MG/DL (70-100); LIPASE 127 U/L (73-393); POTASSIUM SERUM 4.3 MEQ/L (3.5-5.1); SODIUM LEVEL 144 MEQ/L (136-145); TOTAL PROTEIN 7.8 GM/DL (6.4-8.2)
[2022-02-14] MEDS ORDERED: NYSTATIN 100,000 UNITS/GM TOPICAL PWD 15 GM TOP STA (00:18)
[2022-02-14] MEDS ORDERED: NYSTATIN OINTMENT 15 GM TOP STA (00:18)
[2022-02-14] MEDS ORDERED: NYST1POW9 TOP (00:47)
[2022-02-14] MEDS ORDERED: NYSTOI TOP (00:47)
[2022-02-14] MEDS ORDERED: OMEP40CA4 PO (00:47)
[2022-02-14 00:54] VITALS: BP 140/77
[2022-02-14 01:37] LABS: GC DNA AMPLIFICATION NEGATIVE (NEGATIVE)
== END 2022-02-14 01:19 | disposition home or self-care (01) ==
LOC: M ED 18:31
DX: B37.2 Candidiasis of skin and nail (principal); B37.42 Candidal balanitis; K92.0 Hematemesis; J44.9 Chronic obstructive pulmonary disease, unspecified; Z79.51 Long term (current) use of inhaled steroids; Z79.899 Other long term (current) drug therapy; Z88.5 Allergy status to narcotic agent; Z88.6 Allergy status to analgesic agent

== ENCOUNTER → 2022-03-04 | Outpatient (CLI) | payer OTHER ==
[~2022-03-04] MED LIST changes: +E-Z-GAS II EFFERVESCENT PACKET (SODIUM BICARB./CITRIC ACID/SIMETHICONE) As Ordered ONE; +E-Z-HD 98% w/w 340GM SUSP BTL As Ordered ONE; +E-Z-PAQUE 96% w/w SUSP 176GM BTL As Ordered ONE; +NYST1POW9 TOP; +NYSTOI TOP
== END ==
LOC: M RAD 07:07
PROVIDERS: ATTEND Otolaryngology
DX: K21.9 Gastro-esophageal reflux disease without esophagitis (principal)

== ENCOUNTER → 2022-03-27 | Outpatient (CLI) | payer OTHER ==
[~2022-03-27] MED LIST changes: -E-Z-GAS II EFFERVESCENT PACKET (SODIUM BICARB./CITRIC ACID/SIMETHICONE) As Ordered ONE; -E-Z-HD 98% w/w 340GM SUSP BTL As Ordered ONE; -E-Z-PAQUE 96% w/w SUSP 176GM BTL As Ordered ONE
[2022-03-27 16:18] LABS: HEMATOCRIT 50.6 % (42.0-52.0); HEMOGLOBIN 16.2 g/dl (13.5-17.5); MEAN CORPUSCULAR HEMOGLOBIN 27.7 pg (27.0-33.0); MEAN CORPUSCULAR VOLUME 86.6 fl (80.0-96.0); PLATELET COUNT, AUTOMATED 245 10^3/uL (150-450); RED BLOOD COUNT 5.84 10^6/uL (4.30-6.10); WHITE BLOOD COUNT 9.1 10^3/uL (4.0-10.0)
== END ==
LOC: M LAB 14:46
PROVIDERS: ATTEND Physician Assistant
DX: M54.50 Low back pain, unspecified (principal)

== ENCOUNTER → 2022-07-23 | Outpatient (CLI) | payer OTHER ==
[~2022-07-23] MED LIST changes: +ALBU6.7H6 INH; -PROV108A INH
== END ==
LOC: M RAD 12:08
PROVIDERS: ATTEND Internal Medicine Gastroenterology
DX: R10.13 Epigastric pain (principal)
CPT/HCPCS: 78264; A9541

== ENCOUNTER 2022-07-24 13:28 | Outpatient (RCR) | payer OTHER | END 2022-07-27 | LOC: M PT 13:28 | PROVIDERS: ATTEND Physician Assistant | DX: M54.9 Dorsalgia, unspecified (principal); M25.569 Pain in unspecified knee ==

== ENCOUNTER → 2022-08-05 | Outpatient (CLI) | payer OTHER | LOC: M LABSMTC 10:20 | PROVIDERS: ATTEND Anesthesiology | DX: Z01.812 Encounter for preprocedural laboratory examination (principal); Z20.822 Contact with and (suspected) exposure to COVID-19 ==

== ENCOUNTER 2022-08-09 12:27 | Day surgery (SDC) | payer OTHER ==
[~2022-08-09] VITALS: Ht 180.3 cm; Wt 153.3 kg
[~2022-08-09 12:27] MED LIST changes: +NS 1,000 ML IV ONE
[2022-08-09] MEDS ORDERED: fentaNYL 100 MCG/2 ML INJECTION As Ordered ONE (14:11)
[2022-08-09] MEDS ORDERED: propofoL 200 MG/20 ML VIAL As Ordered ONE ×2 (14:12→15:07)
[2022-08-09] MEDS ORDERED: LIDOCAINE 2% 100MG/5ML SDV (FOR ANES.) As Ordered ONE (14:12)
[2022-08-09] MEDS ORDERED: GLYCOPYRROLATE INJ 0.2 MG/ML 2 ML VIAL As Ordered ONE (14:12)
[2022-08-09 15:35] VITALS: BP 126/83
== END 2022-08-09 19:19 | disposition home or self-care (01) ==
LOC: M OPP 12:27
PROVIDERS: ATTEND Internal Medicine Gastroenterology
DX: K22.89 Other specified disease of esophagus (principal); K92.0 Hematemesis; K31.A11 Gastric intestinal metaplasia without dysplasia, involving the antrum; Z79.1 Long term (current) use of non-steroidal anti-inflammatories (NSAID); Z79.51 Long term (current) use of inhaled steroids; Z79.899 Other long term (current) drug therapy; I10 Essential (primary) hypertension; E78.00 Pure hypercholesterolemia, unspecified; K58.9 Irritable bowel syndrome, unspecified; M19.90 Unspecified osteoarthritis, unspecified site; F32.9 Major depressive disorder, single episode, unspecified; Z88.5 Allergy status to narcotic agent; Z88.6 Allergy status to analgesic agent; Z88.8 Allergy status to other drugs, medicaments and biological substances

== ENCOUNTER → 2022-08-27 | Outpatient (RCR) | payer OTHER ==
[~2022-08-27] MED LIST changes: -NS 1,000 ML IV ONE
== END ==
LOC: M PT 07-31 13:28
PROVIDERS: ATTEND Physician Assistant
DX: M54.9 Dorsalgia, unspecified (principal); M25.569 Pain in unspecified knee

== ENCOUNTER 2022-09-17 13:55 | Outpatient (RCR) | payer OTHER ==
[~2022-09-17 13:55] MED LIST changes: +MONT-5 PO; -SING10TA32 PO
== END 2022-09-24 ==
LOC: M PT 13:55
PROVIDERS: ATTEND Physician Assistant
DX: M54.9 Dorsalgia, unspecified (principal); M25.569 Pain in unspecified knee

== ENCOUNTER 2022-09-26 14:33 | Outpatient (RCR) | payer OTHER | END 2022-10-25 | LOC: M PT 14:33 | PROVIDERS: ATTEND Physician Assistant | DX: M54.9 Dorsalgia, unspecified (principal); M25.569 Pain in unspecified knee ==

== ENCOUNTER 2022-10-30 13:17 | Outpatient (RCR) | payer OTHER ==
[~2022-10-30 13:17] MED LIST changes: +NYST100085 TOP; -NYSTOI TOP
== END 2022-11-24 ==
LOC: M PT 13:17
PROVIDERS: ATTEND Family Medicine
DX: R26.89 Other abnormalities of gait and mobility (principal)

== ENCOUNTER → 2022-12-11 | Outpatient (CLI) | payer OTHER ==
[2022-12-11 13:01] LABS: BLOOD UREA NITROGEN 11 MG/DL (9-23); CALCIUM LEVEL 8.8 MG/DL (8.5-10.1); CARBON DIOXIDE LEVEL 27 MMOL/L (20-31); CHLORIDE LEVEL 110 MMOL/L (98-107); CREATININE FOR GFR 0.87 MG/DL (0.70-1.30); GLOMERULAR FILTRATION RATE > 60.0 (>60); GLUCOSE, FASTING 88 MG/DL (60-100); SODIUM LEVEL 142 MMOL/L (136-145)
== END ==
LOC: M LAB 11:26
PROVIDERS: ATTEND Urology
DX: R39.11 Hesitancy of micturition (principal)

== ENCOUNTER → 2022-12-11 | Outpatient (CLI) | payer OTHER | LOC: M RAD 11:24 | PROVIDERS: ATTEND Physician Assistant Medical | DX: H93.233 Hyperacusis, bilateral (principal) ==

== ENCOUNTER 2023-01-25 15:41 | Emergency (ER) | payer OTHER ==
[~2023-01-25] VITALS: Ht 180.3 cm; Wt 158.6 kg
[2023-01-25] MEDS ORDERED: KETOROLAC TROMETHAMINE 10 MG TAB PO ONE (17:30)
[2023-01-25 17:46] VITALS: BP 138/74; TEMP 98; O2SAT 97
== END 2023-01-25 18:24 | disposition home or self-care (01) ==
LOC: M ED 15:41
DX: S90.31XA Contusion of right foot, initial encounter (principal); W20.8XXA Other cause of strike by thrown, projected or falling object, initial encounter; I10 Essential (primary) hypertension; F41.9 Anxiety disorder, unspecified; G43.909 Migraine, unspecified, not intractable, without status migrainosus; K21.9 Gastro-esophageal reflux disease without esophagitis; M54.50 Low back pain, unspecified; Z88.5 Allergy status to narcotic agent; Z88.8 Allergy status to other drugs, medicaments and biological substances; Z79.52 Long term (current) use of systemic steroids; Z79.83 Long term (current) use of bisphosphonates; Z79.899 Other long term (current) drug therapy

== ENCOUNTER 2023-03-29 15:05 | Emergency (ER) | payer OTHER ==
[~2023-03-29] VITALS: Ht 180.3 cm; Wt 149.6 kg
[2023-03-29 16:17] LABS: BASO % 0.2 % (0.0-1.0); EOS # 0.3 10^3/uL (0.0-0.5); EOS % 2.7 % (0.0-3.0); HEMATOCRIT 50.4 % (42.0-52.0); HEMOGLOBIN 16.8 g/dl (13.5-17.5); LYMPH % 21.9 % (24.0-44.0); MEAN CORPUSCULAR HEMOGLOBIN 29.6 pg (27.0-33.0); MEAN CORPUSCULAR HGB CONC 33.3 g/dl (32.0-36.5); MEAN CORPUSCULAR VOLUME 88.9 fl (80.0-96.0); MONO # 0.8 10^3/uL (0.0-0.8); MONO % 8.4 % (2.0-8.0); NEUTROPHILS # 6.2 10^3/uL (1.5-8.5); NEUTROPHILS % 66.5 % (36.0-66.0); PLATELET COUNT, AUTOMATED 213 10^3/uL (150-450); RED BLOOD COUNT 5.67 10^6/uL (4.30-6.10); WHITE BLOOD COUNT 9.3 10^3/uL (4.0-10.0)
[2023-03-29 16:40] LABS: BLOOD UREA NITROGEN 11 MG/DL (9-23); CALCIUM LEVEL 8.6 MG/DL (8.5-10.1); CARBON DIOXIDE LEVEL 25 MMOL/L (20-31); CHLORIDE LEVEL 111 MMOL/L (98-107); CREATININE FOR GFR 0.91 MG/DL (0.70-1.30); GLOMERULAR FILTRATION RATE > 60.0 (>60); GLUCOSE, FASTING 116 MG/DL (60-100); POTASSIUM SERUM 3.5 MMOL/L (3.5-5.1); SODIUM LEVEL 144 MMOL/L (136-145)
[2023-03-29] MEDS ORDERED: NYST1POW9 TOP (17:00)
[2023-03-29 17:16] VITALS: BP 119/61; TEMP 97.7; O2SAT 97
== END 2023-03-29 17:15 | disposition home or self-care (01) ==
LOC: EDBD 15:05 → M ED 15:05
DX: B37.2 Candidiasis of skin and nail (principal); M54.50 Low back pain, unspecified; K21.9 Gastro-esophageal reflux disease without esophagitis; Z88.5 Allergy status to narcotic agent; Z88.8 Allergy status to other drugs, medicaments and biological substances; Z91.048 Other nonmedicinal substance allergy status; Z79.52 Long term (current) use of systemic steroids; Z79.83 Long term (current) use of bisphosphonates; Z79.899 Other long term (current) drug therapy

== ENCOUNTER → 2023-04-01 | Outpatient (CLI) | payer OTHER ==
[2023-04-01 19:19] LABS: BASO % 0.2 % (0.0-1.0); EOS # 0.2 10^3/uL (0.0-0.5); EOS % 2.1 % (0.0-3.0); HEMATOCRIT 53.3 % (42.0-52.0); HEMOGLOBIN 16.9 g/dl (13.5-17.5); LYMPH # 2.2 10^3/uL (1.5-5.0); LYMPH % 23.1 % (24.0-44.0); MEAN CORPUSCULAR HGB CONC 31.7 g/dl (32.0-36.5); MEAN CORPUSCULAR VOLUME 91.4 fl (80.0-96.0); MONO # 0.8 10^3/uL (0.0-0.8); MONO % 7.9 % (2.0-8.0); NEUTROPHILS # 6.3 10^3/uL (1.5-8.5); NEUTROPHILS % 66.4 % (36.0-66.0); PLATELET COUNT, AUTOMATED 223 10^3/uL (150-450); RED BLOOD COUNT 5.83 10^6/uL (4.30-6.10); WHITE BLOOD COUNT 9.6 10^3/uL (4.0-10.0)
[2023-04-01 19:32] LABS: HEMOGLOBIN A1c 4.7 % (4.0-6.0)
[2023-04-01 19:44] LABS: BLOOD UREA NITROGEN 9 MG/DL (9-23); CALCIUM LEVEL 9.3 MG/DL (8.5-10.1); CARBON DIOXIDE LEVEL 22 MMOL/L (20-31); CHLORIDE LEVEL 112 MMOL/L (98-107); CREATININE FOR GFR 0.98 MG/DL (0.70-1.30); GLOMERULAR FILTRATION RATE > 60.0 (>60); GLUCOSE, FASTING 87 MG/DL (60-100); POTASSIUM SERUM 4.1 MMOL/L (3.5-5.1); SODIUM LEVEL 144 MMOL/L (136-145)
== END ==
LOC: M PLALAB 14:33
PROVIDERS: ATTEND Student in an Organized Health Care Education/Training Program
DX: Z11.1 Encounter for screening for respiratory tuberculosis (principal); M79.671 Pain in right foot

== ENCOUNTER → 2023-04-01 | Outpatient (REF) | payer OTHER ==
[~2023-04-01] MED LIST changes: -MIRT-62 PO; +MIRT-88 PO
== END ==
LOC: M SFHCPLAZ 13:51
PROVIDERS: ATTEND Family Medicine
DX: Z11.1 Encounter for screening for respiratory tuberculosis (principal); M79.671 Pain in right foot; Z13.9 Encounter for screening, unspecified; Z53.9 Procedure and treatment not carried out, unspecified reason

== ENCOUNTER → 2023-06-17 | Outpatient (REF) | payer OTHER | LOC: M SFHCPLAZ 16:50 | PROVIDERS: ATTEND Student in an Organized Health Care Education/Training Program | DX: J02.9 Acute pharyngitis, unspecified (principal) ==

== ENCOUNTER 2023-07-23 19:38 | Emergency (ER) | payer OTHER ==
[~2023-07-23] VITALS: Ht 180.3 cm; Wt 167.9 kg
[2023-07-23 20:46] LABS: RSV AMPLIFICATION NEGATIVE (NEGATIVE)
[2023-07-23 22:03] VITALS: BP 144/82; TEMP 98.1; O2SAT 98
[2023-07-24] MEDS ORDERED: ONDANSETRON 4MG 2ML VIAL IV ONE (00:05)
[2023-07-24 01:20] LABS: BASO % 0.2 % (0.0-1.0); EOS # 0.1 10^3/uL (0.0-0.5); EOS % 0.9 % (0.0-3.0); HEMATOCRIT 52.2 % (42.0-52.0); HEMOGLOBIN 17.3 g/dl (13.5-17.5); LYMPH # 2.6 10^3/uL (1.5-5.0); LYMPH % 23.4 % (24.0-44.0); MEAN CORPUSCULAR HEMOGLOBIN 29.8 pg (27.0-33.0); MEAN CORPUSCULAR HGB CONC 33.1 g/dl (32.0-36.5); MEAN CORPUSCULAR VOLUME 89.8 fl (80.0-96.0); NEUTROPHILS # 7.2 10^3/uL (1.5-8.5); NEUTROPHILS % 66.1 % (36.0-66.0); PLATELET COUNT, AUTOMATED 240 10^3/uL (150-450); RED BLOOD COUNT 5.81 10^6/uL (4.30-6.10)
[2023-07-24 01:45] LABS: ALBUMIN 3.9 G/DL (3.2-5.2); BILIRUBIN,DIRECT 0.1 MG/DL (<0.4); BILIRUBIN,TOTAL 0.4 MG/DL (0.3-1.2); CK-MB VALUE MASS 1.6 NG/ML (<3.6); TOTAL PROTEIN 7.4 G/DL (5.7-8.2)
[2023-07-24 01:49] LABS: MB/CK RELATIVE INDEX 1.34 (< OR =4)
[2023-07-24 05:03] LABS: MB/CK RELATIVE INDEX 1.41 (< OR =4)
[2023-07-24] MEDS ORDERED: ONDA4TAB6 PO (05:14)
== END 2023-07-24 05:50 | disposition home or self-care (01) ==
LOC: M ED 19:38 → EDBD 19:38 → M ED 07-24 05:50
DX: R10.9 Unspecified abdominal pain (principal); R11.2 Nausea with vomiting, unspecified; K21.9 Gastro-esophageal reflux disease without esophagitis; G43.909 Migraine, unspecified, not intractable, without status migrainosus; J44.9 Chronic obstructive pulmonary disease, unspecified; G47.33 Obstructive sleep apnea (adult) (pediatric); Z88.5 Allergy status to narcotic agent; Z88.8 Allergy status to other drugs, medicaments and biological substances; Z91.048 Other nonmedicinal substance allergy status; Z79.52 Long term (current) use of systemic steroids; Z79.83 Long term (current) use of bisphosphonates; Z79.810 Long term (current) use of selective estrogen receptor modulators (SERMs); Z79.899 Other long term (current) drug therapy
CPT/HCPCS: 71045; 80047; 80076; 81001; 82550; 82553; 83690; 85025; 87086; 87631; 93005; 96374; 99284; J2405

== ENCOUNTER → 2023-09-18 | Outpatient (CLI) | payer OTHER ==
[2023-09-18 11:45] LABS: MAU/CREAT RATIO 2.1 MCG/MG (0.0-30.0)
[2023-09-18 11:47] LABS: CREATININE FOR GFR 0.87 MG/DL (0.70-1.30); GLOMERULAR FILTRATION RATE > 60.0 (>60)
== END ==
LOC: M LAB 09:03
PROVIDERS: ATTEND Physician Assistant
DX: H53.8 Other visual disturbances (principal)

== ENCOUNTER → 2023-10-02 | Outpatient (CLI) | payer OTHER | LOC: M WHC 11:23 | PROVIDERS: ATTEND Student in an Organized Health Care Education/Training Program | DX: R22.42 Localized swelling, mass and lump, left lower limb (principal) ==

== ENCOUNTER → 2023-10-28 | Outpatient (CLI) | payer OTHER ==
[~2023-10-28] MED LIST changes: +ISOVUE-370 76% 100ML VIAL As Ordered ONE
== END ==
LOC: M RAD 09:36
PROVIDERS: ATTEND Nurse Practitioner Family
DX: R31.0 Gross hematuria (principal); N28.89 Other specified disorders of kidney and ureter
CPT/HCPCS: 74178; Q9967

== ENCOUNTER → 2023-12-08 | Outpatient (CLI) | payer OTHER ==
[~2023-12-08] MED LIST changes: +DOXY50CA35 PO; -DOXY50CA51 PO; -ISOVUE-370 76% 100ML VIAL As Ordered ONE
== END ==
LOC: M CARPUL 10:14
PROVIDERS: ATTEND Student in an Organized Health Care Education/Training Program
DX: R60.0 Localized edema (principal)

== ENCOUNTER → 2024-02-26 | Outpatient (CLI) | payer OTHER ==
[~2024-02-26] MED LIST changes: +ONDA-282 PO; -ONDA4TAB6 PO
== END ==
LOC: M RAD 17:45
PROVIDERS: ATTEND Student in an Organized Health Care Education/Training Program
DX: R10.84 Generalized abdominal pain (principal)

== ENCOUNTER 2024-04-19 18:23 | Emergency (ER) | payer OTHER ==
[~2024-04-19] VITALS: Ht 180.3 cm; Wt 182.0 kg
[2024-04-19] MEDS: LIDOCAINE 2% 5ML JELLY UROJET TOP ONE (19:38)
[2024-04-19 20:54] VITALS: BP 134/81; TEMP 99.3; O2SAT 95
== END 2024-04-19 20:56 | disposition home or self-care (01) ==
LOC: EDBD 18:23 → M ED 18:23
DX: R33.9 Retention of urine, unspecified (principal); G43.909 Migraine, unspecified, not intractable, without status migrainosus; I10 Essential (primary) hypertension; J44.9 Chronic obstructive pulmonary disease, unspecified; M54.50 Low back pain, unspecified; G47.33 Obstructive sleep apnea (adult) (pediatric); Z88.5 Allergy status to narcotic agent; Z88.6 Allergy status to analgesic agent; Z91.048 Other nonmedicinal substance allergy status; Z87.442 Personal history of urinary calculi; Z79.52 Long term (current) use of systemic steroids; Z79.83 Long term (current) use of bisphosphonates; Z79.899 Other long term (current) drug therapy

== ENCOUNTER → 2024-05-25 | Outpatient (CLI) | payer OTHER ==
[~2024-05-25] MED LIST changes: -DOXY50CA35 PO; +DOXY50CA50 PO
[2024-05-25 13:37] LABS: BASO % 0.3 % (0.0-1.0); EOS # 0.1 10^3/uL (0.0-0.5); EOS % 0.9 % (0.0-3.0); HEMATOCRIT 48.2 % (42.0-52.0); HEMOGLOBIN 15.7 g/dl (13.5-17.5); LYMPH # 1.6 10^3/uL (1.5-5.0); MEAN CORPUSCULAR HEMOGLOBIN 29.7 pg (27.0-33.0); MEAN CORPUSCULAR HGB CONC 32.6 g/dl (32.0-36.5); MEAN CORPUSCULAR VOLUME 91.1 fl (80.0-96.0); MONO # 0.6 10^3/uL (0.0-0.8); NEUTROPHILS # 5.5 10^3/uL (1.5-8.5); NEUTROPHILS % 70.4 % (36.0-66.0); PLATELET COUNT, AUTOMATED 204 10^3/uL (150-450); RED BLOOD COUNT 5.29 10^6/uL (4.30-6.10); WHITE BLOOD COUNT 7.8 10^3/uL (4.0-10.0)
[2024-05-25 14:16] LABS: ALBUMIN 3.5 G/DL (3.2-5.2); ALKALINE PHOSPHATASE 101 U/L (40-129); ALT/SGPT 42 U/L (7.0-40); AST/SGOT 24 U/L (<34); BILIRUBIN,TOTAL 0.6 MG/DL (0.3-1.2); BLOOD UREA NITROGEN 9 MG/DL (9-23); CALCIUM LEVEL 9.2 MG/DL (8.5-10.1); CARBON DIOXIDE LEVEL 28 MMOL/L (20-31); CHLORIDE LEVEL 110 MMOL/L (98-107); CREATININE FOR GFR 0.94 MG/DL (0.70-1.30); GLOMERULAR FILTRATION RATE > 60.0 (>60); GLUCOSE, FASTING 93 MG/DL (60-100); POTASSIUM SERUM 3.7 MMOL/L (3.5-5.1); SODIUM LEVEL 145 MMOL/L (136-145); TOTAL PROTEIN 6.9 G/DL (5.7-8.2)
== END ==
LOC: M LAB 12:39
PROVIDERS: ATTEND Nurse Practitioner Family
DX: G40.911 Epilepsy, unspecified, intractable, with status epilepticus (principal)

== ENCOUNTER 2024-06-04 14:34 | Emergency (ER) | payer OTHER ==
[~2024-06-04] VITALS: Ht 180.3 cm; Wt 181.6 kg
[~2024-06-04 14:34] MED LIST changes: +NYST1POW3 TOP; -NYST1POW9 TOP
[2024-06-04] MEDS: ACETAMINOPHEN 500 MG TAB PO ONE (17:10)
[2024-06-04] MEDS ORDERED: ISOVUE-370 76% 100ML VIAL As Ordered ONE (17:36)
[2024-06-04 17:44] LABS: BASO % 0.2 % (0.0-1.0); EOS # 0.1 10^3/uL (0.0-0.5); EOS % 1.2 % (0.0-3.0); HEMATOCRIT 49.2 % (42.0-52.0); HEMOGLOBIN 16.4 g/dl (13.5-17.5); LYMPH % 20.2 % (24.0-44.0); MEAN CORPUSCULAR HEMOGLOBIN 30.6 pg (27.0-33.0); MEAN CORPUSCULAR HGB CONC 33.3 g/dl (32.0-36.5); MEAN CORPUSCULAR VOLUME 91.8 fl (80.0-96.0); MONO # 0.7 10^3/uL (0.0-0.8); MONO % 6.7 % (2.0-8.0); NEUTROPHILS # 7.2 10^3/uL (1.5-8.5); NEUTROPHILS % 71.4 % (36.0-66.0); PLATELET COUNT, AUTOMATED 200 10^3/uL (150-450); RED BLOOD COUNT 5.36 10^6/uL (4.30-6.10); WHITE BLOOD COUNT 10.1 10^3/uL (4.0-10.0)
[2024-06-04 18:12] LABS: LIPASE 38 U/L (12-53)
[2024-06-04 18:14] LABS: ALBUMIN 3.6 G/DL (3.2-5.2); ALKALINE PHOSPHATASE 109 U/L (40-129); ALT/SGPT 44 U/L (7.0-40); AST/SGOT 20 U/L (<34); BILIRUBIN,DIRECT < 0.1 MG/DL (<0.4); BILIRUBIN,TOTAL 0.3 MG/DL (0.3-1.2); TOTAL PROTEIN 7.8 G/DL (5.7-8.2)
[2024-06-04] MEDS ORDERED: MIRA3350 PO (18:49)
[2024-06-04 18:56] VITALS: BP 159/71; TEMP 97.6; O2SAT 100
== END 2024-06-04 19:01 | disposition home or self-care (01) ==
LOC: EDBD 14:34 → M ED 14:34
DX: R10.9 Unspecified abdominal pain (principal); K59.00 Constipation, unspecified; I10 Essential (primary) hypertension; K21.9 Gastro-esophageal reflux disease without esophagitis; G47.30 Sleep apnea, unspecified; G43.909 Migraine, unspecified, not intractable, without status migrainosus; J45.909 Unspecified asthma, uncomplicated; Z90.49 Acquired absence of other specified parts of digestive tract; Z88.8 Allergy status to other drugs, medicaments and biological substances; Z88.5 Allergy status to narcotic agent; Z91.048 Other nonmedicinal substance allergy status; Z79.52 Long term (current) use of systemic steroids; Z79.83 Long term (current) use of bisphosphonates; Z79.899 Other long term (current) drug therapy
CPT/HCPCS: 36415; 74177; 80047; 80076; 81001; 83690; 85025; 99284; Q9967

== ENCOUNTER → 2024-06-15 | Outpatient (CLI) | payer OTHER ==
[~2024-06-15] MED LIST changes: +MIRA3350 PO; +PROHANCE 279.3MG/ML 15ML VIAL As Ordered ONE; +PROHANCE 279.3MG/ML 5ML VIAL As Ordered ONE
== END ==
LOC: M RAD 13:22
PROVIDERS: ATTEND Nurse Practitioner Family
DX: G40.909 Epilepsy, unspecified, not intractable, without status epilepticus (principal)
CPT/HCPCS: 70553; A9576

== ENCOUNTER 2024-06-30 15:37 | Emergency (ER) | payer OTHER ==
[~2024-06-30] VITALS: Ht 180.3 cm; Wt 135.4 kg
[~2024-06-30 15:37] MED LIST changes: -PROHANCE 279.3MG/ML 15ML VIAL As Ordered ONE; -PROHANCE 279.3MG/ML 5ML VIAL As Ordered ONE
[2024-06-30 17:04] VITALS: BP 131/78; TEMP 97.6; O2SAT 98
[2024-06-30] MEDS: IBUPROFEN 600MG TAB PO ONE (17:36)
== END 2024-06-30 18:52 | disposition home or self-care (01) ==
LOC: EDBD 15:37 → M ED 15:37
DX: S80.01XA Contusion of right knee, initial encounter (principal); W01.0XXA Fall on same level from slipping, tripping and stumbling without subsequent striking against object, initial encounter; I10 Essential (primary) hypertension; Y92.009 Unspecified place in unspecified non-institutional (private) residence as the place of occurrence of the external cause; Y93.89 Activity, other specified; Y99.9 Unspecified external cause status; Z91.048 Other nonmedicinal substance allergy status; Z88.5 Allergy status to narcotic agent; Z88.6 Allergy status to analgesic agent; Z88.8 Allergy status to other drugs, medicaments and biological substances; Z79.52 Long term (current) use of systemic steroids; Z79.83 Long term (current) use of bisphosphonates; Z79.899 Other long term (current) drug therapy

== ENCOUNTER 2024-09-16 12:30 | Emergency (ER) | payer OTHER ==
[~2024-09-16] VITALS: Ht 180.3 cm; Wt 183.5 kg
[2024-09-16] MEDS ORDERED: PRED10TA2 PO (17:32)
[2024-09-16] MEDS: predniSONE 20 MG TAB PO ONE (17:43)
[2024-09-16 17:48] VITALS: BP 143/88; TEMP 98.7; O2SAT 98
== END 2024-09-16 17:53 | disposition home or self-care (01) ==
LOC: EDBD 12:30 → M ED 12:30
DX: J45.901 Unspecified asthma with (acute) exacerbation (principal); B34.2 Coronavirus infection, unspecified; Z88.5 Allergy status to narcotic agent; Z88.8 Allergy status to other drugs, medicaments and biological substances; K21.9 Gastro-esophageal reflux disease without esophagitis; Z79.51 Long term (current) use of inhaled steroids; Z79.899 Other long term (current) drug therapy
CPT/HCPCS: 87486; 87581; 87633; 87798; 87880; 99284; J7512

== ENCOUNTER 2024-12-01 11:21 | Emergency (ER) | payer OTHER ==
[~2024-12-01] VITALS: Ht 180.3 cm; Wt 181.6 kg
[~2024-12-01 11:21] MED LIST changes: +PRED10TA2 PO; +TOPI-14 PO; -TOPI200T7 PO
[2024-12-01 13:37] VITALS: BP 151/67; TEMP 98.1; O2SAT 98
[2024-12-01] MEDS ORDERED: PRED10TA2 PO (15:13)
== END 2024-12-01 15:34 | disposition home or self-care (01) ==
LOC: M ED 11:21
DX: J06.9 Acute upper respiratory infection, unspecified (principal); J45.909 Unspecified asthma, uncomplicated; Z88.5 Allergy status to narcotic agent; Z88.6 Allergy status to analgesic agent; Z91.048 Other nonmedicinal substance allergy status; Z79.52 Long term (current) use of systemic steroids; Z79.83 Long term (current) use of bisphosphonates; Z79.899 Other long term (current) drug therapy; Z79.1 Long term (current) use of non-steroidal anti-inflammatories (NSAID)

== ENCOUNTER → 2024-12-15 | Outpatient (CLI) | payer OTHER | LOC: M RAD 11:15 | PROVIDERS: ATTEND Student in an Organized Health Care Education/Training Program | DX: B34.8 Other viral infections of unspecified site (principal) ==

== ENCOUNTER 2025-03-12 08:38 | Emergency (ER) | payer OTHER ==
[~2025-03-12] VITALS: Ht 180.3 cm; Wt 184.1 kg
[2025-03-12 11:15] VITALS: BP 130/79; TEMP 100; O2SAT 98
== END 2025-03-12 11:42 | disposition home or self-care (01) ==
LOC: M ED 08:38 → EDBD 08:38 → M ED 11:42
DX: J06.9 Acute upper respiratory infection, unspecified (principal); B34.8 Other viral infections of unspecified site; R00.0 Tachycardia, unspecified; I45.81 Long QT syndrome; J45.909 Unspecified asthma, uncomplicated; K21.9 Gastro-esophageal reflux disease without esophagitis; J44.9 Chronic obstructive pulmonary disease, unspecified; G47.30 Sleep apnea, unspecified; Z88.5 Allergy status to narcotic agent; Z88.6 Allergy status to analgesic agent; Z88.8 Allergy status to other drugs, medicaments and biological substances; Z91.048 Other nonmedicinal substance allergy status; Z79.1 Long term (current) use of non-steroidal anti-inflammatories (NSAID); Z79.52 Long term (current) use of systemic steroids; Z79.83 Long term (current) use of bisphosphonates; Z79.899 Other long term (current) drug therapy

== ENCOUNTER 2025-04-16 12:28 | Emergency (ER) | payer OTHER ==
[~2025-04-16] VITALS: Ht 180.3 cm; Wt 185.6 kg
[~2025-04-16 12:28] MED LIST changes: -IBUP-1022 PO; +IBUP600T42 PO
[2025-04-16 12:33] VITALS: TEMP 96.7
[2025-04-16 13:19] LABS: KETONE, URINE AUTO RFX NEGATIVE (NEGATIVE); LEUKOCYTE ESTERASE UR AUTO RFX NEGATIVE (NEGATIVE); NITRITE, URINE AUTO RFX NEGATIVE (NEGATIVE); RBC, URINE AUTO RFX 0 /HPF (0-3); SQUAM EPITHELIAL CELL UR AURFX 2 /HPF (0-6); WBC, URINE AUTO RFX 1 /HPF (0-3)
[2025-04-16 13:22] LABS: BASO # 0.0 10^3/uL (0.0-0.2); BASO % 0.2 % (0.0-1.0); EOS # 0.3 10^3/uL (0.0-0.5); EOS % 2.2 % (0.0-3.0); LYMPH # 2.3 10^3/uL (1.5-5.0); LYMPH % 18.3 % (24.0-44.0); MONO # 1.0 10^3/uL (0.0-0.8); MONO % 7.5 % (2.0-8.0); NEUTROPHILS # 9.1 10^3/uL (1.5-8.5); NEUTROPHILS % 71.4 % (36.0-66.0); PLATELET COUNT, AUTOMATED 240 10^3/uL (150-450)
[2025-04-16] MEDS: PANTOPRAZOLE 40MG VIAL IV ONE (13:38)
[2025-04-16 13:39] LABS: INR 0.91
[2025-04-16 13:47] LABS: CK-MB VALUE MASS 2.5 NG/ML (<3.6)
[2025-04-16 13:49] LABS: ALT/SGPT 56 U/L (7.0-40); AST/SGOT 35 U/L (<34); CALCIUM LEVEL 8.6 MG/DL (8.5-10.1); CARBON DIOXIDE LEVEL 28 MMOL/L (20-31); CHLORIDE LEVEL 107 MMOL/L (98-107); CREATININE FOR GFR 0.87 MG/DL (0.70-1.30); GLOMERULAR FILTRATION RATE > 90.0 (>60); POTASSIUM SERUM 4.1 MMOL/L (3.5-5.1); SODIUM LEVEL 139 MMOL/L (136-145)
[2025-04-16 13:51] LABS: FREE T4 1.06 NG/DL (0.89-1.76)
[2025-04-16 13:56] LABS: CPK CREATINE PHOSPHOKINASE 72 U/L (46-171); MB/CK RELATIVE INDEX 3.47 (< OR =4)
[2025-04-16] MEDS ORDERED: ISOVUE-370 76% 100 ML VIAL As Ordered ONE (14:03)
[2025-04-16 14:47] LABS: CK-MB VALUE MASS 2.0 NG/ML (<3.6)
[2025-04-16 14:53] LABS: CPK CREATINE PHOSPHOKINASE 66 U/L (46-171); MB/CK RELATIVE INDEX 3.03 (< OR =4)
[2025-04-16 16:45] VITALS: BP 131/74; O2SAT 99
[2025-04-16] MEDS ORDERED: SUCR1SS PO (16:46)
== END 2025-04-16 16:59 | disposition home or self-care (01) ==
LOC: M ED 14:19
DX: K92.0 Hematemesis (principal); J44.9 Chronic obstructive pulmonary disease, unspecified; G43.909 Migraine, unspecified, not intractable, without status migrainosus; K21.9 Gastro-esophageal reflux disease without esophagitis; Z91.048 Other nonmedicinal substance allergy status; Z88.5 Allergy status to narcotic agent; Z88.6 Allergy status to analgesic agent; Z88.8 Allergy status to other drugs, medicaments and biological substances; Z79.52 Long term (current) use of systemic steroids; Z79.1 Long term (current) use of non-steroidal anti-inflammatories (NSAID); Z79.83 Long term (current) use of bisphosphonates; Z79.899 Other long term (current) drug therapy
CPT/HCPCS: 71045; 74174; 80048; 80076; 81001; 82150; 82550; 82553; 83605; 83690; 84439; 84443; 84484; 85025; 85610; 85730; 93005; 93041; 94760; 96374; 99285; J2470; Q9967